=== PATIENT | female | born 1945 | race Caucasian/White ===

== ENCOUNTER 2017-08-11 21:30 | Inpatient (IN) | payer MEDICARE, SELFPAY ==
[2017-08-11 21:31] VITALS: BP 155/93; PULSE 87; RESP 20; TEMP 37.5; O2SAT 96; BMI 39.5
--- NOTE | 2017-08-11 21:44 | EKG12_ITS ---
Test Reason : FALL Blood Pressure : / mmHG Vent. Rate : 085 BPM Atrial Rate : 085 BPM P-R Int : 202 ms QRS Dur : 090 ms QT Int : 330 ms P-R-T Axes : 041 -39 067 degrees QTc Int : 392 ms Normal sinus rhythm Left axis deviation Anterior infarct , age undetermined Abnormal ECG Confirmed by TANYA OROZCO, CLEVE ([id number]), fashion editor SHONDA BROCK ([id number]) on 08/15/2017 2:51:48 PM Referred By: JERAD Confirmed By:CLEVE MARTÍNEZ MD
--- NOTE | 2017-08-11 21:44 | RAD_ITS ---
STUDY: X-RAY - PELVIS AND RIGHT HIP REASON FOR EXAM: Female, 71 years old. Fall, face down. TECHNIQUE: Radiological exam, hip, unilateral, with pelvis when performed; 2 or 3 views. COMPARISON: None. FINDINGS: There is a non-specific bowel gas pattern. Normal visualized soft tissue structures. Diffuse osteopenic changes are present. Normal bilateral iliac wings, sacroiliac joints and visualized sacrum. Normal bilateral superior and inferior pubic rami. There are degenerative changes of the pubic symphysis with articular narrowing and sclerosis. Normal bilateral ischial tuberosities. Normal visualized femoral head. Normal acetabulum. There is mild articular joint space narrowing of the hip. RAD/Hip 2-3 Views with Pelvis IMPRESSION: Degenerative changes and osteopenic changes with no evidence of acute fracture or dislocation. Electronically Signed: Hero Zuñiga DO at 22:31 EDT , Service support ,
--- NOTE | 2017-08-11 21:44 | CT_ITS ---
STUDY: CT BRAIN WITHOUT CONTRAST REASON FOR EXAM: Female, 71 years old. Fall, head pain. RADIATION DOSAGE (If Supplied By Facility): CTDIvol = ( 44.399 ) mGy, DLP = ( 779.24 ) mGycm TECHNIQUE: Transaxial CT imaging of the brain was performed without administration of intravenous contrast material. Individualized dose optimization techniques were used for this CT. COMPARISON: 23 May 2014 MRI brain FINDINGS: Normal soft tissue structures. Normal calvarium. There is moderate cerebral atrophy with widening of the extra-axial spaces and ventricular dilatation. There are areas of decreased attenuation within the white matter tracts of the supratentorial brain, consistent with microvascular disease changes. Left subinsular region of encephalomalacia is present. Normal brainstem. Normal cerebellum. There is no intracranial hemorrhage. There are no findings of an acute ischemic infarction. Normal visualized paranasal sinuses. CT/Brain/Head without Contrast IMPRESSION: Senescent changes with no evidence of acute intracranial bleed, mass or ischemia. Electronically Signed: Hero Zuñiga DO at 22:38 EDT , Service support ,
[2017-08-11 21:46] VITALS: O2SAT 94
--- NOTE | 2017-08-11 22:04 | RAD_ITS ---
STUDY: X-RAY CHEST REASON FOR EXAM: Female, 71 years old. Fall, found face down. TECHNIQUE: Single AP portable view of the chest. COMPARISON: 17 September 2015 FINDINGS: The lungs are clear and expanded. There is no demonstrated pleural abnormality. Normal size heart. Widened appearance of the mediastinum is noted similar to 2016 exam. Normal visualized pulmonary arteries. Normal visualized aortic arch and descending thoracic aorta. Normal visualized thoracic spine. There is degenerative osteoarthritis of the bilateral shoulders. There is no demonstrated abnormality of the visualized soft tissue structures of the upper abdomen. RAD/Chest 1 View (Portable) IMPRESSION: Overall similar appearance compared to the 2016 exam with no evidence of focal airspace disease. Electronically Signed: Hero Zuñiga DO at 22:29 EDT , Service support ,
[2017-08-11 22:09] LABS: Absolute Lymphocyte Count 0.32 X10^3/ul (0.83-4.51); Absolute Neutrophil Count 6.1 X10^3/uL (2.0-7.7); Basophil# 0.01 X10^3/uL; Basophil% 0.1 % (0-1); Differential Indicated SCAN CRITERIA MET; Hematocrit 41.8 % (37-47); Hemoglobin 13.6 g/dl (12.0-15.0); Lymphocyte # 0.32 X10^3/ul (4.0); Lymphocyte % 4.7 % (19-41); Mean Corp Hgb Conc 32.5 g/gl (32-36); Mean Corpuscular Volume 95.2 fL (81-99); Mean Platelet Vol. 9.5 fl (6.2-12.0); Monocyte# 0.44 X10^3/uL; Monocyte% 6.4 % (0-10); Neutrophil # 6.07 X10^3/uL (2.7-7.7); Neutrophil % 88.8 % (47-70); POSITIVE COUNT NO; POSITIVE DIFFERENTIAL YES; POSITIVE MORPHOLOGY NO; Platelet Count 162 K/mm3 (150-450); RBC Distribution Width CV 13.1 % (11.6-14.6); RBC Distribution Width SD 45.3 fl (35.1-43.9); Red Blood Count 4.39 M/mm3 (4.2-5.4); White Blood Count 6.8 K/mm3 (4.4-11.0)
[2017-08-11 22:13] LABS: International Normalized Ratio 1.1; Prothrombin Time (Protime)PT. 14.1 SECONDS (11.7-14.9)
[2017-08-11 22:19] LABS: ALB/GLOB Ratio 0.9 RATIO (0.9-2.4); AST(SGOT) 20 U/L (15-37); Alanine Aminotransfer ALT/SGPT 30 U/L (13-56); Albumin, Serum 3.4 g/dL (3.2-5.0); Alkaline Phosphatase 63 U/L (45-117); Anion Gap 8 (5-15); BUN 20 mg/dL (7-18); BUN/Creat Ratio 23.8 RATIO (10-20); Calcium,Total 8.4 mg/dL (8.5-10.1); Chloride 104 mmol/L (98-107); Creatinine, Serum 0.84 mg/dL (0.55-1.02); EST Glomerular Filtration Rate 71 mL/min (>60); Est Glom Filt Rate - Afr Amer 86 mL/min (>60); Estimated Creatinine Clearance 77.58 ml/min; Globulin 3.9 g/dL (2.2-4.2); Glucose 122 mg/dL (74-106); Potassium 3.5 mmol/L (3.5-5.1); Protein, Total 7.3 g/dL (6.4-8.2); Sodium Level 139 mmol/L (136-145)
[2017-08-11 22:35] LABS: Anisocytosis RARE; Macrocytosis RARE; Platelet Estimate ADEQUATE (ADEQ)
[2017-08-11] MEDS: Ondansetron 4 MG/2 ML Vial IV (22:35)
[2017-08-11] MEDS: fentaNYL 100 MCG/2 ML Ampul 50 MCG IV (22:35)
[2017-08-11 22:38] LABS: Bacteria 0 SEEN /hpf (None Seen); Red Blood Cells-Urine 0 SEEN /hpf (0-5); White Blood Cells 0 SEEN /hpf (0-5)
[2017-08-11 22:48] LABS: Color, Urine Yellow (Yellow); Glucose, Dipstick Normal (Normal); Ketone-Dipstick 5 mg/dl (Negative); Leukocyte Esterase-Dipstick Negative /ul (Negative); Nitrite-Dipstick Negative (Negative); Occult Blood-Urine 10 /ul (Negative); Protein-Dipstick 30 mg/dl (Negative); Urine Bilirubin Dipstick Negative (Negative); Urine Clarity Clear (Clear); Urine Urobilinogen Normal (Normal)
[2017-08-11 22:59] LABS: Hyaline Cast 0-5 SEEN /lpf (0-5); Mucous, Urine 1+ /hpf (<or=2+); Squamous Epithelial Cells - UA 0-5 SEEN /hpf (5-10)
--- NOTE | 2017-08-11 23:21 | ED.VISSUMM ---
- ER Visit Summary Date of Service: 08/11/17 Chief Complaint: Fall, hip pain History of Present Illness: The patient is a 71 F resents to the emergency department after a fall. Patient is very vague on the details. She has a history of sarcoidosis. She lives at home with her sister. She states she was trying to get out of her bed and cannot recall falling. She ended up on the ground and was unable to stand. She normally walks with a walker. She states that she thinks she slipped but cannot totally remember. The patient does admit to chills and sweats over the past 24 hours. She has had a scant nonproductive cough. She has felt increasing malaise and generalized weakness. She does not take anticoagulants. She denies any chest pain. She was mildly nauseated earlier today but that has since resolved. She does have history of prior stroke. Physical Examination: Vital signs reviewed General: Well-nourished, well-developed Head: Normocephalic, atraumatic Eyes: Pupils equal and reactive, extraocular muscles intact Neck, supple, no lymphadenopathy Heart: Regular rate and rhythm Respiratory: No distress, minutes in the bases Abdomen: Soft, nontender, nondistended, no peritoneal signs Back: Nontender Extremities: Right hip tender to palpation. Pain with logroll. Normal pulses. Skin: Normal color no rash Neuro: Alert and oriented to person and place, no focal or lateralizing deficits Test Results: [] Emergency Department Course and Treatment: It was hard to tell if the patient actually had a mechanical fall or if this was a syncopal event. Clinically, she does have infectious symptoms. She has had a scant cough with fever and chills. Labs were obtained. These are relatively unremarkable. Her EKG is sinus rhythm without acute ischemic change. Chest x-ray shows no pneumonia. Head CT is shows chronic change without evidence of acute bleeding. Pelvis x-ray and hip x-ray were unremarkable without evidence of fracture. Urine shows no infection. The patient was given fluids, analgesics, and reevaluated. She continues to have what appears to be a mild delirium. I do suspect there may be an infectious process. We did attempt to ambulate the patient, but she was very unsteady on her feet. At this time, I do not have a great feel for what caused her symptoms. I do suspect she may have an early pneumonia. With her weakness and inability to ambulate, I did discuss the patient with the hospitalist and she will be admitted. Treatment Plan: [] Disposition: Admission Impression: 1. Fall 2. Right hip pain with inability to ambulate 3. Delirium This note was generated with [employer] dictation software. It may contain incorrect words, spelling, and punctuation that were not noted in review of the chart prior to signing ED Disposition - Plan for ED Patient: Chief Complaint: Fall Referrals: Robyn Ramirez MD [Primary Care Provider] -
--- NOTE | 2017-08-11 23:48 | HP.PCM_ITS ---
Problem List (1) Fall with injury Status: Acute Qualifiers: Encounter type: initial encounter Qualified Code(s): W19.XXXA - Unspecified fall, initial encounter (2) Unable to walk Status: Acute (3) BMI 40.0-44.9, adult Status: Chronic (4) Gastroparesis Status: Chronic (5) Myelopathy Status: Chronic (6) Low back pain Status: Chronic (7) Myalgia and myositis Status: Chronic (8) Malaise and fatigue Status: Chronic (9) Aortic stenosis Status: Chronic (10) Hypertension Status: Chronic Qualifiers: (11) Sarcoidosis Status: Chronic (12) Confusion Status: Acute History of Present Illness Date of Admission: 08/11/17 Chief Complaint: fall with injury, unable to walk, confusion The patient is a 71 year old female patient who lives at home with her family presents to the ER after a fall. The patient is a poor historian due to confusion. It is reported that she has had a cough recently. She has a low grade fever. CT scan of the head is negative for acute findings, Chest x-ray is negative for acute findings. X-ray of the hip is negative for fracture. Despite this she is unable to bear weight at present time and she remains confused. She will be admitted for further management. Levaquin was started empirically. Past Medical History Past Medical History (Chronic Problems): Chronic Problems (Last Updated 07/02/17 @ 14:42 by Eulalia Torres) BMI 40.0-44.9, adult (Chronic) Gastroparesis (Chronic) Myelopathy (Chronic) Spinal cord lesion (Chronic) Low back pain (Chronic) Myalgia and myositis (Chronic) Malaise and fatigue (Chronic) Supraventricular tachycardia (Chronic) Palpitations (Chronic) Subsequent non-ST elevation (NSTEMI) myocardial infarction (Chronic) 02/16/15 Aortic stenosis (Chronic) Hypertension (Chronic) Sarcoidosis (Chronic) Obesity (BMI 30-39.9) (Chronic) Malabsorption (Chronic) Allergies lisinopril Allergy (Verified 08/11/17 21:35) Angioedema amlodipine [From Norvasc] Adverse Reaction (Severe, Verified 08/11/17 21:35) Freezes up limbs nifedipine [From Nifedical XL] Adverse Reaction (Severe, Verified 08/11/17 21:35 ) Freezes up limbs alendronate sodium [From Fosamax] Adverse Reaction (Intermediate, Verified 08/11 21:35) GI upset codeine Adverse Reaction (Verified 08/11/17 21:35) Unknown ibuprofen Adverse Reaction (Verified 08/11/17 21:35) Other HCTA Adverse Reaction (Intermediate, Uncoded 08/11/17 21:35) Low sodium LIPITOR Adverse Reaction (Uncoded 08/11/17 21:35) Unknown Home Medications: Ambulatory Orders Medication Instructions Recorded Cholecalciferol (VIT D3) [Vitamin 5,000 unit PO DAILY 05/22/14 D3] Vitamin B Complex 1 ea PO DAILY 05/22/14 Acetaminophen [Tylenol] 500 mg PO DAILY 07/15/16 Lactulose [Chronulac] 20 gm PO DAILY PRN 07/15/16 magnesium 250 mg tablet 750 mg PO QHS tab 06/16/17 metoprolol succinate ER 25 mg 25 mg PO BID 06/16/17 tablet,extended release 24 hr alfalfa 650 mg tablet 650 mg PO QDAY ea 07/02/17 folic acid-vit B6-vit B12 0.5 mg-5 1 tab PO QDAY 07/02/17 mg-0.2 mg tablet vitamin A palmitate 10,000 unit 10,000 unit PO QDAY ea 07/02/17 capsule Surgical History: total knee arthroplasty, tonsillectomy Psychiatric History: No pertinent psych hx INTERVIEWING CLERK History: No pertinent INTERVIEWING CLERK history Smoking Status: Never smoker - *Family History Paternal History Items: - - AAA Maternal History Items: Heart Disease Sibling History Items: Diabetes Review of Systems Constitutional: Reports: Fever, Malaise, Weakness, Fatigue. Denies: Chills, Weight Change HEENT: Denies: Head Aches, Sinus Congestion, Sinus Drainage Cardiovascular: Denies: Chest Pain, Palpitations Respiratory: Denies: Cough, Shortness of breath at rest, Sputum production Gastrointestinal: Denies: Abdominal Pain, Nausea, Vomiting Genitourinary: Denies: Dysuria Musculoskeletal: Denies: Joint Pain, Joint Tenderness Skin: Denies: Rash, Wounds Neurological: Denies: Numbness, Tingling, Focal weakness Psychiatric: Denies: Anxiety, Depression, Homicidal Ideations, Suicidal Ideations Hematologic/ Lymphatic: Denies: Easy Bruising, Easy Bleeding Unable to obtain accurate/complete ROS d/t: patient is confused- history per reports VTE Information - Inpt Only VTE Present on Admission: No VTE Mechan Device Prophylaxis: None VTE Pharm Prophylaxis ordered?: Yes Patient Problems: Active and Suspected Problems (Last Updated 07/02/17 @ 14:42 by Eulalia Torres) Fall with injury (Acute) Unable to walk (Acute) Confusion (Acute) - Physical Exam General: Alert, Confused HEENT: Atraumatic, PERRLA, EOMI, Normocephalic Neck: Supple Lungs: Clear to auscultation, Normal air movement, No rhonchi, No wheeze, No rales Cardiovascular: Regular rate, Normal S1, Normal S2, No murmurs, Murmur - 3/6 billy Abdomen: Bowel Sounds Present, Soft, Non Tender Extremities: No edema, Capillary Refill Less than 3 Seconds Skin: No rashes Musculoskeletal: No Tenderness to Palpation of Joints or Extremities Neurological: Neuro grossly intact Psych/Mental Status: Normal Affect, Appropriate Vital Signs Temp Pulse Resp BP Pulse Ox 99.5 F H 87 20 H 155/93 H 94 08/11/17 21:31 08/11/17 21:31 08/11/17 21:31 08/11/17 21:31 08/11/17 21:46 Oxygen Delivery Method Room Air Weight: 176 lb 5.917 oz Body Mass Index (BMI) 39.5 Finger Stick Blood Glucose 122 Laboratory Tests Past 24 Hrs 08/11/17 08/11/17 08/11/17 21:50 21:50 21:50 WBC 6.8 RBC 4.39 Hgb 13.6 Hct 41.8 MCV 95.2 MCH 31.0 MCHC 32.5 RDW 13.1 RDW Differential 45.3 H Plt Count 162 MPV 9.5 Immature Gran % (Auto) 0.000 Neut % (Auto) 88.8 H Lymph % (Auto) 4.7 L [place] % (Auto) 6.4 Eos % (Auto) 0.0 Baso % (Auto) 0.1 Absolute Neuts (auto) 6.1 Absolute Lymphs (auto) 0.32 L Total Counted Not Reportable Differential Comment SEE COMMENT Platelet Estimate ADEQUATE Anisocytosis RARE Macrocytosis RARE PT 14.1 INR 1.1 Sodium 139 Potassium 3.5 Chloride 104 Carbon Dioxide 27.0 Anion Gap 8 BUN 20 H Creatinine 0.84 Estim Creat Clear Calc 77.58 Est GFR (MDRD) Af Amer 86 Est GFR (MDRD) Non-Af 71 BUN/Creatinine Ratio 23.8 H Glucose 122 H Calcium 8.4 L Total Bilirubin 0.60 AST 20 ALT 30 Alkaline Phosphatase 63 Total Protein 7.3 Albumin 3.4 Globulin 3.9 Albumin/Globulin Ratio 0.9 Urine Color Urine Clarity Urine pH Ur Specific [place] Urine Protein Urine Glucose (UA) Urine Ketones Urine Occult Blood Urine Nitrite Urine Bilirubin Urine Urobilinogen Ur Leukocyte Esterase Urine RBC Urine WBC Ur Squamous Epith Cells Urine Bacteria Hyaline Casts Urine Mucus 08/11/17 22:35 WBC RBC Hgb Hct MCV MCH MCHC RDW RDW Differential Plt Count MPV Immature Gran % (Auto) Neut % (Auto) Lymph % (Auto) [place] % (Auto) Eos % (Auto) Baso % (Auto) Absolute Neuts (auto) Absolute Lymphs (auto) Total Counted Differential Comment Platelet Estimate Anisocytosis Macrocytosis PT INR Sodium Potassium Chloride Carbon Dioxide Anion Gap BUN Creatinine Estim Creat Clear Calc Est GFR (MDRD) Af Amer Est GFR (MDRD) Non-Af BUN/Creatinine Ratio Glucose Calcium Total Bilirubin AST ALT Alkaline Phosphatase Total Protein Albumin Globulin Albumin/Globulin Ratio Urine Color Yellow Urine Clarity Clear Urine pH 6.0 Ur Specific [place] 1.020 Urine Protein 30 H Urine Glucose (UA) Normal Urine Ketones 5 H Urine Occult Blood 10 H Urine Nitrite Negative Urine Bilirubin Negative Urine Urobilinogen Normal Ur Leukocyte Esterase Negative Urine RBC 0 SEEN Urine WBC 0 SEEN Ur Squamous Epith Cells 0-5 SEEN Urine Bacteria 0 SEEN Hyaline Casts 0-5 SEEN Urine Mucus 1+ Assessment/Plan Active and Suspected Problems (Last Updated 07/02/17 @ 14:42 by Eulalia Torres) Fall with injury (Acute) Unable to walk (Acute) Confusion (Acute) Chronic Problems (Last Updated 07/02/17 @ 14:42 by Eulalia Torres) BMI 40.0-44.9, adult (Chronic) Gastroparesis (Chronic) Myelopathy (Chronic) Spinal cord lesion (Chronic) Low back pain (Chronic) Myalgia and myositis (Chronic) Malaise and fatigue (Chronic) Supraventricular tachycardia (Chronic) Palpitations (Chronic) Subsequent non-ST elevation (NSTEMI) myocardial infarction (Chronic) 02/16/15 Aortic stenosis (Chronic) Hypertension (Chronic) Sarcoidosis (Chronic) Obesity (BMI 30-39.9) (Chronic) Malabsorption (Chronic) Plan - admit to medical surgical floor. - continue levaquin - physical therapy to evaluate and treat - IV normal saline at 125cc/hour - cbc, bmp in am - continue routine home medications - LMWH for DVT prophylaxis Code Visit Inpatient E&M: 94857 Init Hosp L3
[2017-08-12] VITALS (19 sets, daily range): BP systolic 91–168; BP diastolic 66–92; PULSE 61–159; RESP 18–21; TEMP 36.4–38.3; O2SAT 92–99; BMI 38.8
[2017-08-12] MEDS: levoFLOXacin IV 500 MG/100 ML BAG 100 MG IV (01:04)
[2017-08-12] MEDS: 0.9% Normal Saline 1,000 ML 125 ML IV ×2 (01:47→12:17)
[2017-08-12] MEDS: Acetaminophen 500 MG Tablet PO (06:09)
[2017-08-12 06:15] LABS: Absolute Lymphocyte Count 0.53 X10^3/ul (0.83-4.51); Absolute Neutrophil Count 4.6 X10^3/uL (2.0-7.7); Hematocrit 36.9 % (37-47); Hemoglobin 12.3 g/dl (12.0-15.0); Lymphocyte # 0.53 X10^3/ul (4.0); Lymphocyte % 9.7 % (19-41); Mean Corp Hgb Conc 33.3 g/gl (32-36); Mean Corpuscular Hgb 31.9 pg (27.0-32.0); Mean Corpuscular Volume 95.6 fL (81-99); Mean Platelet Vol. 9.9 fl (6.2-12.0); Monocyte% 7.3 % (0-10); Neutrophil # 4.55 X10^3/uL (2.7-7.7); Neutrophil % 82.8 % (47-70); Platelet Count 166 K/mm3 (150-450); RBC Distribution Width CV 13.3 % (11.6-14.6); RBC Distribution Width SD 46.3 fl (35.1-43.9); Red Blood Count 3.86 M/mm3 (4.2-5.4); White Blood Count 5.5 K/mm3 (4.4-11.0)
[2017-08-12 06:24] LABS: Differential Indicated SCAN CRITERIA MET; POSITIVE COUNT NO; POSITIVE DIFFERENTIAL YES; POSITIVE MORPHOLOGY NO
[2017-08-12 06:25] LABS: Anion Gap 7 (5-15); BUN 18 mg/dL (7-18); BUN/Creat Ratio 29.1 RATIO (10-20); Calcium,Total 7.7 mg/dL (8.5-10.1); Chloride 108 mmol/L (98-107); Creatinine, Serum 0.62 mg/dL (0.55-1.02); EST Glomerular Filtration Rate 101 mL/min (>60); Est Glom Filt Rate - Afr Amer 122 mL/min (>60); Estimated Creatinine Clearance 64.03 ml/min; Glucose 102 mg/dL (74-106); Potassium 3.5 mmol/L (3.5-5.1); Sodium Level 140 mmol/L (136-145)
[2017-08-12] MEDS: Metoprolol(XL)Succ 25 MG Tablet PO ×2 (06:30→12:54)
--- NOTE | 2017-08-12 06:40 | NURSING ---
this RN checked pt's VS and noted a HR of 150s. Call was placed to MD. EKG performed showed SVT. MD ordered for beta di to be given early. Pt told this RN that she did not take her meds yesterday. Pt was short of breath when transferring to the toilet and complained of a headache. tylenol 500mg was given. Pt did not urinate; bladder scan showed 275.
[2017-08-12 06:42] LABS: Differential Comment SCANNED
[2017-08-12 07:06] LABS: Magnesium 1.7 mg/dL (1.6-2.6)
--- NOTE | 2017-08-12 08:19 | NURSING ---
pt was SVT- PO metoprolol given this AM by casino shift manager. At 0802 this AM SVT converted to SR. Pt has been asymptomatic throughout rhythm changes.
[2017-08-12] MEDS: Vitamin B Comp W-C Capsule 1 CAP PO (08:42)
--- NOTE | 2017-08-12 09:17 | NURSING ---
Patients family member David called in this AM and requested for pt to call her- this RN assisted pt at this time with calling her at this time- per pt request.
[2017-08-12] MEDS: Enoxaparin 40 MG/0.4 ML Syringe SC (09:57)
--- NOTE | 2017-08-12 12:42 | CASEMGMT ---
See RN CM Assessment. DC PLAN: undetermined -PT/OT is recommending SNF. SADIQ Antonio updated. Reba HUAN RN ACM
[2017-08-12] MEDS: Ondansetron 4 MG/2 ML Vial IV ×2 (12:58→18:49)
--- NOTE | 2017-08-12 13:00 | RAD_ITS ---
STUDY: X-RAY CHEST REASON FOR EXAM: Female, 71 years old. Cough. TECHNIQUE: AP and lateral views of the chest. COMPARISON: Comparison is made with prior study dated August 11, 2017. FINDINGS: EKG electrodes are seen. The lungs are clear and expanded. Stable blunting of the left costophrenic angle. Mild cardiomegaly. Stable widening of the superior mediastinum is likely due to ectasia of the major vessels. Normal visualized pulmonary arteries. There is atherosclerotic tortuosity of the aortic arch and descending thoracic aorta. Normal visualized thoracic spine. There is degenerative osteoarthritis of the bilateral shoulders. There is no demonstrated abnormality of the visualized soft tissue structures of the upper abdomen. RAD/Chest PA and Lateral IMPRESSION: Stable examination. Electronically Signed: Bebo Oseguera MD at 12:37 EDT Tel [phone], Service support ,
--- NOTE | 2017-08-12 16:14 | PCM.PROGNOTE ---
Patient Problems: Active and Suspected Problems (Last Updated 07/02/17 @ 14:42 by Eulalia Torres) Fall with injury (Acute) Unable to walk (Acute) Confusion (Acute) Subjective: Patient was seen and examined today, I stopped her antibiotics this morning because I do not feel the patient has a focus of infection. Patient was walked with physical therapy today but was a maximal assist, she has agreed to go to a skilled care facility for temporary rehab. Patient has been multiple questions about her bowel movements, she states that her bowel movements are like pellets and that she sees green liquid in her bowel movements. I asked her if she had any actual abdominal pain and she denied this. She stated that her bowel movements have been pellet-like for the last 2-3 months. Patient has an anxiety overlay according to her PCP, her PCP also told me today that she has been having trouble walking at home for quite a long time and that she does not get up and walk very much at home. Had some diarrhea today, her chest x-ray this afternoon did not show an active infiltrate. In addition, patient had some episodes of SVT today on the monitor, pulse rates were around 150-160, I talked to her silk conditioner about this and her silk conditioner has confirmed that in the past she has had episodic SVT and recommended that her metoprolol dosage be increased. - Physical Exam General: Alert, Oriented x3, Cooperative, No apparent distress, Well developed, Well nourished HEENT: Atraumatic, PERRLA, EOMI, Normocephalic Oral: Moist Mucosa Neck: Supple, No JVD, No Nuchal Rigidity, Trachea Midline, Thyroid Normal Size and Texture Lungs: Clear to auscultation, Normal air movement, No rhonchi, No wheeze, No rales Cardiovascular: Regular rate, Regular Rhythm, Normal S1, Normal S2, No murmurs, No Ectopic Activity, PMI Normal, No rub noted, No Gallop Abdomen: Bowel Sounds Present, Soft, Non Tender, Non-Distended, No hernias noted Extremities: No clubbing, No cyanosis, No edema, Capillary Refill Less than 3 Seconds Skin: No rashes, No breakdown Musculoskeletal: No Tenderness to Palpation of Joints or Extremities Neurological: Cranial nerves II-XII grossly intact, Neuro grossly intact, Sensory exam intact to light touch and pain, Coordination normal Psych/Mental Status: Appropriate, Anxious, Flat Affect, Alert and oriented to time, place, person, mood and affect Vital Signs Temp Pulse Resp BP Pulse Ox 97.5 F L 68 18 131/83 H 95 08/12/17 12:47 08/12/17 14:00 08/12/17 12:47 08/12/17 12:54 08/12/17 12:47 Oxygen Flow Rate (L/min) 2 Oxygen Delivery Method Room Air Weight: 78.6 kg Body Mass Index (BMI) 38.8 Intake and Output for Last 24 Hours 08/10/17 08/11/17 08/12/17 23:59 23:59 23:59 Intake Total 1677 / 1677 Output Total 300 / 300 Balance 1377 / 1377 Laboratory Tests Past 24 Hrs 08/12/17 08/12/17 08/12/17 05:15 05:15 05:15 WBC 5.5 RBC 3.86 L Hgb 12.3 Hct 36.9 L MCV 95.6 MCH 31.9 MCHC 33.3 RDW 13.3 RDW Differential 46.3 H Plt Count 166 MPV 9.9 Immature Gran % (Auto) 0.200 Neut % (Auto) 82.8 H Lymph % (Auto) 9.7 L [place] % (Auto) 7.3 Eos % (Auto) 0.0 Baso % (Auto) 0.0 Absolute Neuts (auto) 4.6 Absolute Lymphs (auto) 0.53 L Total Counted Not Reportable Differential Comment SCANNED Sodium 140 Potassium 3.5 Chloride 108 H Carbon Dioxide 25.0 Anion Gap 7 BUN 18 Creatinine 0.62 Estim Creat Clear Calc 64.03 Est GFR (MDRD) Af Amer 122 Est GFR (MDRD) Non-Af 101 BUN/Creatinine Ratio 29.1 H Glucose 102 Calcium 7.7 L Magnesium 1.7 Medical Necessity - Tobacco Use Smoking Status: Never smoker Assessment/Plan Active and Suspected Problems (Last Updated 07/02/17 @ 14:42 by Eulalia Torres) Fall with injury (Acute) Unable to walk (Acute) Confusion (Acute) #1 generalized debility secondary to deconditioning, osteoarthritis, and myelopathy-patient will need continued PT and OT, we will go ahead with temporary placement in a [facility] facility #2 SVT-patient's metoprolol will be increased and she will be monitored on telemetry #3 anxiety disorder #4 diarrhea-unsure of the etiology of this, will observe #5 osteoarthritis #6 aortic stenosis #7 Cephalopathy on admission-patient does not appear to be confused at the time of my examination, however, she is not very cognizant of her surroundings when she walks. #8 sarcoidosis #9 history of myelopathy-etiology unknown Code Visit Inpatient E&M: 67281 Subs Hosp L2
--- NOTE | 2017-08-12 16:53 | CASEMGMT ---
Social Work Note RN LUCIANA Arango informed this worker that PT/OT are recommending SNF placement at discharge and that pt had mentioned TCU. SW met with pt to discuss discharge plans. Pt confirms that she would like TCU. SW placed a call to Cony in TCU to inform her of referral. Talisha ESTES will continue to follow along for discharge planning. Plan: TCU pending acceptance Marisela Duque BLACK JACK DEALER, PREPRESS TECHNICIAN
--- NOTE | 2017-08-12 18:29 | NURSING ---
PT C/O NAUSEA, ABD CRAMPING. HAD HAD 2 EPISODES OF DIARRHEA THIS AFTERNOON. DR Saini NOTIFIED & NEW ORDERS RECEIVED.
[2017-08-12] MEDS: Magnesium Oxide 400 MG Tablet 800 MG PO (21:16)
[2017-08-12] MEDS: Metoprolol(XL)Succ 50 MG Tablet PO (21:16)
[2017-08-12] MEDS: 0.9% Normal Saline 1,000 ML 100 ML IV (21:21)
[2017-08-13] VITALS (11 sets, daily range): BP systolic 124–175; BP diastolic 70–90; PULSE 58–71; RESP 16–20; TEMP 36.8–37.3; O2SAT 92–96
[2017-08-13] MEDS: 0.9% Normal Saline 1,000 ML 100 ML IV ×2 (07:41→17:21)
[2017-08-13] MEDS: Vitamin B Comp W-C Capsule 1 CAP PO (07:41)
[2017-08-13] MEDS: Enoxaparin 40 MG/0.4 ML Syringe SC (09:48)
[2017-08-13] MEDS: Metoprolol(XL)Succ 50 MG Tablet PO ×2 (09:49→20:49)
[2017-08-13] MEDS: Acetaminophen 500 MG Tablet PO (09:50)
--- NOTE | 2017-08-13 09:51 | CASEMGMT ---
Addendum entered by Talisha Bourgeois 08/13/17 13:39: SW spoke w/pt in room, let her know that we are still waiting for precert from insurance to authorize pt to go to TCU. SW explained that pt's [employer] has to authorize in order for her to be covered to TCU. Pt states understanding, SW explained as soon as this SW hears from insurance will let her know. Pt states understanding. SW will continue to follow. FRANKLYN Graham, WATCH CRYSTAL MOLDER Original Note: Addendum entered by Talisha Bourgeois 08/13/17 11:22: SW spoke w/Dr. Moreau, pt is ready any time for discharge. SW let Erendira in TCU know, she will start precert. FRANKLYN Graham, WATCH CRYSTAL MOLDER Original Note: Erendira from TCU inquired when pt will be ready for discharge, and Erendira will start precert. SW will let Erendira know once SW speaks w/the physician. FRANKLYN Graham, WATCH CRYSTAL MOLDER
--- NOTE | 2017-08-13 16:57 | PCM.PROGNOTE ---
Patient Problems: Active and Suspected Problems (Last Updated 07/02/17 @ 14:42 by Eulalia Torres) Fall with injury (Acute) Unable to walk (Acute) Confusion (Acute) Subjective: Patient was seen and examined today, she still complains of having some abdominal cramping. I have the patient currently on a full liquid diet. We are awaiting approval for the patient to go to jail facility for rehab - Physical Exam General: Alert, Oriented x3, Cooperative, No apparent distress, Well developed, Well nourished HEENT: Atraumatic, PERRLA, EOMI, Normocephalic Oral: Moist Mucosa Neck: Supple, No JVD, No Nuchal Rigidity, Trachea Midline, Thyroid Normal Size and Texture Lungs: Clear to auscultation, Normal air movement, No rhonchi, No wheeze, No rales Cardiovascular: Regular rate, Regular Rhythm, Normal S1, Normal S2, No murmurs, No Ectopic Activity, PMI Normal, No rub noted, No Gallop Abdomen: Bowel Sounds Present, Soft, Non Tender, Non-Distended, No hernias noted Extremities: No clubbing, No cyanosis, No edema, Capillary Refill Less than 3 Seconds Skin: No rashes, No breakdown Musculoskeletal: No Tenderness to Palpation of Joints or Extremities Neurological: Cranial nerves II-XII grossly intact, Neuro grossly intact, Sensory exam intact to light touch and pain Psych/Mental Status: Normal Affect, Appropriate, Alert and oriented to time, place, person, mood and affect Vital Signs Temp Pulse Resp BP Pulse Ox 98.2 F 58 L 16 124/70 H 96 08/13/17 13:48 08/13/17 13:48 08/13/17 13:48 08/13/17 13:48 08/13/17 13:48 Oxygen Flow Rate (L/min) 2 Oxygen Delivery Method Room Air Weight: 78.6 kg Body Mass Index (BMI) 38.8 Intake and Output for Last 24 Hours 08/11/17 08/12/17 08/13/17 23:59 23:59 23:59 Intake Total 2609 / 2609 1525 / 1525 Output Total 300 / 300 Balance 2309 / 2309 1525 / 1525 Medical Necessity - Tobacco Use Smoking Status: Never smoker Assessment/Plan Active and Suspected Problems (Last Updated 07/02/17 @ 14:42 by Eulalia Keller Fall with injury (Acute) Unable to walk (Acute) Confusion (Acute) #1 generalized debility secondary to deconditioning, osteoarthritis, and myelopathy-patient will need continued PT and OT, we are currently awaiting approval for the patient to go to a jail facility #2 SVT-patient's metoprolol was increased yesterday #3 anxiety disorder #4 diarrhea/abdominal cramping-unsure of the etiology of this, will observe #5 osteoarthritis #6 aortic stenosis #7 Confusion on admission-patient does not appear to be confused at the time of my examination, however, she is not very cognizant of her surroundings when she walks. #8 sarcoidosis #9 history of myelopathy-etiology unknown Code Visit Inpatient E&M: 19342 Subs Hosp L2
--- NOTE | 2017-08-13 17:00 | PN_ITS ---
Patient Problems: Active and Suspected Problems (Last Updated 07/02/17 @ 14:42 by Eulalia Torres) Fall with injury (Acute) Unable to walk (Acute) Confusion (Acute) Subjective: Patient was seen and examined today, she still complains of having some abdominal cramping. I have the patient currently on a full liquid diet. We are awaiting approval for the patient to go to senior care facility for rehab - Physical Exam General: Alert, Oriented x3, Cooperative, No apparent distress, Well developed, Well nourished HEENT: Atraumatic, PERRLA, EOMI, Normocephalic Oral: Moist Mucosa Neck: Supple, No JVD, No Nuchal Rigidity, Trachea Midline, Thyroid Normal Size and Texture Lungs: Clear to auscultation, Normal air movement, No rhonchi, No wheeze, No rales Cardiovascular: Regular rate, Regular Rhythm, Normal S1, Normal S2, No murmurs, No Ectopic Activity, PMI Normal, No rub noted, No Gallop Abdomen: Bowel Sounds Present, Soft, Non Tender, Non-Distended, No hernias noted Extremities: No clubbing, No cyanosis, No edema, Capillary Refill Less than 3 Seconds Skin: No rashes, No breakdown Musculoskeletal: No Tenderness to Palpation of Joints or Extremities Neurological: Cranial nerves II-XII grossly intact, Neuro grossly intact, Sensory exam intact to light touch and pain Psych/Mental Status: Normal Affect, Appropriate, Alert and oriented to time, place, person, mood and affect Vital Signs Temp Pulse Resp BP Pulse Ox 98.2 F 58 L 16 124/70 H 96 08/13/17 13:48 08/13/17 13:48 08/13/17 13:48 08/13/17 13:48 08/13/17 13:48 Oxygen Flow Rate (L/min) 2 Oxygen Delivery Method Room Air Weight: 78.6 kg Body Mass Index (BMI) 38.8 Intake and Output for Last 24 Hours 08/11/17 08/12/17 08/13/17 23:59 23:59 23:59 Intake Total 2609 / 2609 1525 / 1525 Output Total 300 / 300 Balance 2309 / 2309 1525 / 1525 Medical Necessity - Tobacco Use Smoking Status: Never smoker Assessment/Plan Active and Suspected Problems (Last Updated 07/02/17 @ 14:42 by Eulalia Keller Fall with injury (Acute) Unable to walk (Acute) Confusion (Acute) #1 generalized debility secondary to deconditioning, osteoarthritis, and myelopathy-patient will need continued PT and OT, we are currently awaiting approval for the patient to go to a senior care facility #2 SVT-patient's metoprolol was increased yesterday #3 anxiety disorder #4 diarrhea/abdominal cramping-unsure of the etiology of this, will observe #5 osteoarthritis #6 aortic stenosis #7 Confusion on admission-patient does not appear to be confused at the time of my examination, however, she is not very cognizant of her surroundings when she walks. #8 sarcoidosis #9 history of myelopathy-etiology unknown Code Visit Inpatient E&M: 07374 Subs Hosp L2
[2017-08-13] MEDS: Magnesium Oxide 400 MG Tablet 800 MG PO (20:49)
[2017-08-14] VITALS (10 sets, daily range): BP systolic 154–171; BP diastolic 77–88; PULSE 53–65; RESP 16–18; TEMP 36.7–37.3; O2SAT 94–99
[2017-08-14] MEDS: Vitamin B Comp W-C Capsule 1 CAP PO (09:11)
[2017-08-14] MEDS: Enoxaparin 40 MG/0.4 ML Syringe SC (09:11)
[2017-08-14] MEDS: Metoprolol(XL)Succ 50 MG Tablet PO ×2 (09:11→21:23)
[2017-08-14] MEDS: Acetaminophen 500 MG Tablet PO (09:12)
--- NOTE | 2017-08-14 09:54 | PCM.PROGNOTE ---
Patient Problems: Active and Suspected Problems (Last Updated 07/02/17 @ 14:42 by Eulalia Torres) Fall with injury (Acute) Unable to walk (Acute) Confusion (Acute) Subjective: Patient seen and examined today, she voices no specific complaints, we are currently awaiting approval for placement in group home facility. - Physical Exam General: Alert, Oriented x3, Cooperative, No apparent distress, Well developed, Well nourished HEENT: Atraumatic, PERRLA, EOMI, Normocephalic Oral: Moist Mucosa Neck: Supple, No JVD, Trachea Midline, Thyroid Normal Size and Texture Lungs: Clear to auscultation, Normal air movement, No rhonchi, No wheeze, No rales Cardiovascular: Regular rate, Regular Rhythm, Normal S1, Normal S2, No murmurs, No Ectopic Activity Abdomen: Bowel Sounds Present, Soft, Non Tender, Non-Distended, No hernias noted Extremities: No clubbing, No cyanosis, No edema, Capillary Refill Less than 3 Seconds Skin: No rashes, No breakdown Neurological: Cranial nerves II-XII grossly intact, Neuro grossly intact Psych/Mental Status: Normal Affect, Appropriate, Alert and oriented to time, place, person, mood and affect Vital Signs Temp Pulse Resp BP Pulse Ox 98.9 F 58 L 16 171/88 H 96 08/14/17 08:23 08/14/17 09:11 08/14/17 08:23 08/14/17 08:23 08/14/17 08:23 Oxygen Flow Rate (L/min) 2 Oxygen Delivery Method Room Air Weight: 78.6 kg Body Mass Index (BMI) 38.8 Intake and Output for Last 24 Hours 08/12/17 08/13/17 08/14/17 23:59 23:59 23:59 Intake Total 2609 / 2609 1525 / 1525 320 / 320 Output Total 300 / 300 Balance 2309 / 2309 1525 / 1525 320 / 320 Medical Necessity - Tobacco Use Smoking Status: Never smoker Assessment/Plan Active and Suspected Problems (Last Updated 07/02/17 @ 14:42 by Eulalia Torres) Fall with injury (Acute) Unable to walk (Acute) Confusion (Acute) #1 generalized debility secondary to deconditioning, osteoarthritis, and myelopathy-patient will need continued PT and OT, we are currently awaiting approval for the patient to go to a group home facility #2 SVT-he remains in sinus rhythm at this time, rate is well controlled on metoprolol #3 anxiety disorder #4 diarrhea/abdominal cramping-unsure of the etiology of this, she has no complaints today about abdominal discomfort #5 osteoarthritis #6 aortic stenosis #7 Confusion on admission-etiology unclear, patient does not appear to be confused today #8 sarcoidosis #9 history of myelopathy-etiology unknown Code Visit Inpatient E&M: 87376 Subs Hosp L2
--- NOTE | 2017-08-14 12:08 | CASEMGMT ---
Addendum entered by Talisha Bourgeois 08/14/17 15:22: SW spoke w/Cony again in TCU, she called [employer] and left a message, she is still waiting for precert. She states she will call the floor if we get precert still today, as this SW will be leaving soon for the day. SW spoke w/pt in room, as pt had told the EMPLOYEE'S REPRESENTATIVE that [employer] left her a message at home saying pt was approved for TCU. SW explained to pt that [employer] would not call her at home to say she is approved for TCU, and perhaps the message was saying pt was approved for the hospital stay. Pt states she thought it was strange that they would call her at home. SW explained will let her know as soon as we hear anything in regard to the precert, and if we do not hear today by 5pm will speak w/pt in the morning. Pt states understanding. SW will continue to follow. FRANKLYN Graham, DIRECTOR NURSERY SCHOOL Original Note: SW spoke w/Cony in TCU, she has not heard anything yet from insurance. Pt did walk 130 feet and 150 feet w/therapy, so this SW is concerned that pt could be denied by [employer](even though pt had to take breaks and needed verbal cues, etc). SW reviewed other options w/pt in the event she is denied, including home w/home health care, SNF private pay, or SNF and apply for Medicaid to cover the cost. Pt is not certain what she would want to do. SW explained that as soon as SW hears regarding precert will let her know. SW will continue to follow. FRANKLYN Graham, DIRECTOR NURSERY SCHOOL
[2017-08-14] MEDS: Magnesium Oxide 400 MG Tablet 800 MG PO (21:24)
[2017-08-15] VITALS (10 sets, daily range): BP systolic 127–197; BP diastolic 73–98; PULSE 58–65; RESP 16–18; TEMP 36.8–37.5; O2SAT 92–96
[2017-08-15] MEDS: Vitamin B Comp W-C Capsule 1 CAP PO (09:06)
[2017-08-15] MEDS: Acetaminophen 500 MG Tablet PO (09:06)
[2017-08-15] MEDS: Metoprolol(XL)Succ 50 MG Tablet PO ×2 (09:06→20:13)
[2017-08-15] MEDS: Enoxaparin 40 MG/0.4 ML Syringe SC (09:06)
--- NOTE | 2017-08-15 10:07 | CASEMGMT ---
Addendum entered by Talisha Bourgeois 08/15/17 13:57: [employer] still has not given an answer in regard to precert. SW spoke w/pt about what she would like to do if insurance denies, she states she thinks she would like to go home w/home health. SW explained that Marisela, another SW will be taking over and will let her know when we hear something from [facility]. Pt inquired if she would stay all weekend if we do not hear anything today, SW explained that if we do not hear today, she may end up staying until Friday. Pt states understanding. SW left a message for Cony in TCU to call Marisela Francis if she gets precert, and Marisela will follow up w/pt. SW will continue to follow. FRANKLYN Graham, FRUIT AND VEGETABLE PARER Original Note: Addendum entered by Talisha Bourgeois 08/15/17 13:08: SW spoke w/Litzy in regard to this pt at [facility]. Pt would not be appropriate for their AL at this time, as per Litzy, as they feel she is a fall risk and there is not a bed in AL close to the nurse's station. They would potentially have a private pay bed in the [facility], cost is $235-$245 per day. [facility] will let Litzy know if pt would like to consider going there private pay, still waiting for the final determination from [facility] for TCU. SW will continue to follow. FRANKLYN Graham, FRUIT AND VEGETABLE PARER Original Note: SW spoke w/Cony this morning in regard to pt's precert. She states that she has not heard back, and that the case likely went to medical review. SW spoke w/pt in the room in regard to discharge plan. SW explained that we have not heard back from [facility], and SW is concerned that pt may be denied by insurance. SW asked pt what she may want to do, go home w/home health, or go to SNF private pay if she can afford this. Pt inquired how much it would be to go to SNF private pay, SW reviewed cost w/pt. Pt asked specifically about W, SW explained the cost, and can also check on their AL, as they have some transitional beds there that may be an option for her. Pt asked about cost of home health, SW explained this would be covered by her insurance. Pt tearful, explained it took her a long time to be okay w/going to TCU, and never thought that her insurance would deny. SW explained that as of now we do not know for certain, and SW will let her know as soon as we hear for certain from TCU about precert. SW offered support to pt. Pt states she lives w/her sister, and may prefer to go home w/home health. SW explained what is covered by insurance for home health (PT/OT/nursing/aide), and that the visits are 30 to 60 minutes. SW explained she can also supplement and hire extra help from the home health agency if she would like to do that. SW explained as soon as SW hears, will let her know. SW did also call [facility], they can take pt. SW called [facility] and left a message inquiring about bed availability in their AL. FRANKLYN Graham, FRUIT AND VEGETABLE PARER
--- NOTE | 2017-08-15 14:26 | CASEMGMT ---
Social Work Note [facility] received call from Cony in TCU. Cony states that yesterday she called [employer] and spoke with customer service about pt's case. Cony states that she got the number for medical review and called and left them a message. Cony states that at this time she still hasn't heard back from [employer] so she placed another call to them. [employer] is now stating that the case was never loaded and they have no case for pt. Cony states that [employer] had uploaded the case on Friday or Friday. Cony states that she has reloaded the case and faxed updated clinicals again. Cony states that it is unlikely that she will hear from [employer] today but if she does she will let this worker know, the floor know, or [facility] [place] tomorrow. [facility] will continue to follow along to assist with discharge planning. Plan: TCU pending pre-cert Marisela Duque ELEMENTARY SCHOOL MUSIC TEACHER, HIM ASSISTANT
--- NOTE | 2017-08-15 15:05 | CASEMGMT ---
Social Work Note Charge Nurse David asked this worker to speak to pt regarding situation with insurance. David states that if pt wants to go home and not see what [employer] says about TCU then they will discharge her home today. SW in to speak with pt and udpated her on insurance situation. SW explained to pt that [employer] is stating the case wasn't loaded and that they had to resubmit the case and that the pre-cert process has began from the start again. SW informed pt that if she wants to go home with home health care and doesn't want to wait for [employer] then she can go home this evening with [facility]. Pt states that she would like to stay to see what [employer] says. SW informed pt that it is unlikely that this worker will hear from Cony in TCU regarding insurance as it is already 3:00 on a Friday and that pt will be here throughout the weekend then. Pt states that she is ok with that and she wants to stay to hear from [employer]. Pt updated Charge Nurse David of this. SW will continue to follow along with pt for discharge planning. Plan: TCU pending pre-cert Marisela Duque SOC ANALYST, BUS PERSON
--- NOTE | 2017-08-15 16:50 | PCM.PROGNOTE ---
Patient Problems: Active and Suspected Problems (Last Updated 07/02/17 @ 14:42 by Eulalia Torres) Fall with injury (Acute) Unable to walk (Acute) Confusion (Acute) Subjective: Patient was seen and examined today, we received word from her insurance carrier today that she was not in their system for approval to go to a shelter facility and they have no data on her and no physical therapy notes. I do not understand why her insurance carrier has no record of us contacting them regarding approval for shelter stay. Patient will now have to stay in the hospital until we receive word from her insurance carrier which will probably early next week. Patient does not feel that she is able to go home - Physical Exam General: Alert, Oriented x3, Cooperative, No apparent distress, Well developed, Well nourished HEENT: Atraumatic, PERRLA, EOMI, Normocephalic Oral: Moist Mucosa Neck: Supple, No JVD, Trachea Midline, Thyroid Normal Size and Texture Lungs: Clear to auscultation, Normal air movement, No rhonchi, No wheeze, No rales Cardiovascular: Regular rate, Regular Rhythm, Normal S1, Normal S2, No murmurs, No Ectopic Activity, PMI Normal, No rub noted, No Gallop Abdomen: Bowel Sounds Present, Soft, Non Tender, Non-Distended, No hernias noted Extremities: No clubbing, No cyanosis, No edema, Capillary Refill Less than 3 Seconds Skin: No rashes, No breakdown Neurological: Cranial nerves II-XII grossly intact, Neuro grossly intact, Sensory exam intact to light touch and pain Psych/Mental Status: Normal Affect, Appropriate, Alert and oriented to time, place, person, mood and affect Vital Signs Temp Pulse Resp BP Pulse Ox 99.1 F 62 18 157/73 H 93 08/15/17 14:22 08/15/17 14:22 08/15/17 14:22 08/15/17 14:22 08/15/17 14:22 Oxygen Flow Rate (L/min) 2 Oxygen Delivery Method Room Air Weight: 78.6 kg Body Mass Index (BMI) 38.8 Intake and Output for Last 24 Hours 08/13/17 08/14/17 08/15/17 23:59 23:59 23:59 Intake Total 1525 / 1525 320 / 320 400 / 400 Balance 1525 / 1525 320 / 320 400 / 400 Medical Necessity - Tobacco Use Smoking Status: Never smoker Assessment/Plan Active and Suspected Problems (Last Updated 07/02/17 @ 14:42 by Eulalia Torres) Fall with injury (Acute) Unable to walk (Acute) Confusion (Acute) #1 generalized debility secondary to deconditioning, osteoarthritis, and myelopathy-patient will need continued PT and OT, we are currently awaiting approval for the patient to go to a shelter facility, again we found out today that her insurance carrier has no record of us calling for approval on the patient, this process will have to start over on Friday #2 SVT-he remains in sinus rhythm at this time, rate is well controlled on metoprolol #3 anxiety disorder #4 diarrhea/abdominal cramping-unsure of the etiology of this, she has no complaints today about abdominal discomfort #5 osteoarthritis #6 aortic stenosis #7 Confusion on admission-etiology unclear, patient does not appear to be confused today #8 sarcoidosis #9 history of myelopathy-etiology unknown Code Visit Inpatient E&M: 41367 Subs Hosp L2
--- NOTE | 2017-08-15 16:53 | PN_ITS ---
Patient Problems: Active and Suspected Problems (Last Updated 07/02/17 @ 14:42 by Eulalia Torres) Fall with injury (Acute) Unable to walk (Acute) Confusion (Acute) Subjective: Patient was seen and examined today, we received word from her insurance carrier today that she was not in their system for approval to go to a prison facility and they have no data on her and no physical therapy notes. I do not understand why her insurance carrier has no record of us contacting them regarding approval for prison stay. Patient will now have to stay in the hospital until we receive word from her insurance carrier which will probably early next week. Patient does not feel that she is able to go home - Physical Exam General: Alert, Oriented x3, Cooperative, No apparent distress, Well developed, Well nourished HEENT: Atraumatic, PERRLA, EOMI, Normocephalic Oral: Moist Mucosa Neck: Supple, No JVD, Trachea Midline, Thyroid Normal Size and Texture Lungs: Clear to auscultation, Normal air movement, No rhonchi, No wheeze, No rales Cardiovascular: Regular rate, Regular Rhythm, Normal S1, Normal S2, No murmurs, No Ectopic Activity, PMI Normal, No rub noted, No Gallop Abdomen: Bowel Sounds Present, Soft, Non Tender, Non-Distended, No hernias noted Extremities: No clubbing, No cyanosis, No edema, Capillary Refill Less than 3 Seconds Skin: No rashes, No breakdown Neurological: Cranial nerves II-XII grossly intact, Neuro grossly intact, Sensory exam intact to light touch and pain Psych/Mental Status: Normal Affect, Appropriate, Alert and oriented to time, place, person, mood and affect Vital Signs Temp Pulse Resp BP Pulse Ox 99.1 F 62 18 157/73 H 93 08/15/17 14:22 08/15/17 14:22 08/15/17 14:22 08/15/17 14:22 08/15/17 14:22 Oxygen Flow Rate (L/min) 2 Oxygen Delivery Method Room Air Weight: 78.6 kg Body Mass Index (BMI) 38.8 Intake and Output for Last 24 Hours 08/13/17 08/14/17 08/15/17 23:59 23:59 23:59 Intake Total 1525 / 1525 320 / 320 400 / 400 Balance 1525 / 1525 320 / 320 400 / 400 Medical Necessity - Tobacco Use Smoking Status: Never smoker Assessment/Plan Active and Suspected Problems (Last Updated 07/02/17 @ 14:42 by Eulalia Torres) Fall with injury (Acute) Unable to walk (Acute) Confusion (Acute) #1 generalized debility secondary to deconditioning, osteoarthritis, and myelopathy-patient will need continued PT and OT, we are currently awaiting approval for the patient to go to a prison facility, again we found out today that her insurance carrier has no record of us calling for approval on the patient, this process will have to start over on Friday #2 SVT-he remains in sinus rhythm at this time, rate is well controlled on metoprolol #3 anxiety disorder #4 diarrhea/abdominal cramping-unsure of the etiology of this, she has no complaints today about abdominal discomfort #5 osteoarthritis #6 aortic stenosis #7 Confusion on admission-etiology unclear, patient does not appear to be confused today #8 sarcoidosis #9 history of myelopathy-etiology unknown Code Visit Inpatient E&M: [id number] Subs Hosp L2
[2017-08-15] MEDS: Magnesium Oxide 400 MG Tablet 800 MG PO (20:13)
[2017-08-15] MEDS: Acetaminophen 325 MG Tablet 650 MG PO (21:59)
[2017-08-15] MEDS: hydrALAZINE 20 MG/ML Vial 5 MG IV (22:10)
[2017-08-16] VITALS (7 sets, daily range): BP systolic 155–182; BP diastolic 78–90; PULSE 58–66; RESP 18–20; TEMP 36.6–37.1; O2SAT 97
[2017-08-16] MEDS: Magnesium Oxide 400 MG Tablet 800 MG PO (12:07)
[2017-08-16] MEDS: Enoxaparin 40 MG/0.4 ML Syringe SC (12:10)
[2017-08-16] MEDS: Vitamin B Comp W-C Capsule 1 CAP PO (12:10)
[2017-08-16] MEDS: Acetaminophen 500 MG Tablet PO (12:11)
[2017-08-16] MEDS: Metoprolol(XL)Succ 50 MG Tablet PO ×2 (12:11→20:43)
--- NOTE | 2017-08-16 14:00 | PCM.PROGNOTE ---
Patient Problems: Active and Suspected Problems (Last Updated 07/02/17 @ 14:42 by Eulalia Torres) Fall with injury (Acute) Unable to walk (Acute) Confusion (Acute) Subjective: Patient was seen and examined today, she voices no specific complaints, we are currently awaiting approval for her to go to a senior living facility for rehab. - Physical Exam General: Alert, Oriented x3, Cooperative, No apparent distress, Well developed HEENT: Atraumatic, PERRLA, EOMI, Normocephalic Oral: Moist Mucosa Neck: Supple, No JVD, Negative Carotid Bruits, No Nuchal Rigidity, Trachea Midline, Thyroid Normal Size and Texture Lungs: Clear to auscultation, Normal air movement, No rhonchi, No wheeze, No rales Cardiovascular: Regular rate, Regular Rhythm, Normal S1, Normal S2, No murmurs, No Ectopic Activity, PMI Normal, No rub noted, No Gallop Abdomen: Bowel Sounds Present, Soft, Non Tender, Non-Distended, No hernias noted Extremities: Capillary Refill Less than 3 Seconds Skin: No rashes, No breakdown Musculoskeletal: No Tenderness to Palpation of Joints or Extremities Neurological: Cranial nerves II-XII grossly intact, Neuro grossly intact, Sensory exam intact to light touch and pain Psych/Mental Status: Normal Affect, Appropriate, Alert and oriented to time, place, person, mood and affect Vital Signs Temp Pulse Resp BP Pulse Ox 98.7 F 66 20 H 180/89 H 97 08/16/17 12:19 08/16/17 12:19 08/16/17 12:19 08/16/17 12:19 08/16/17 12:19 Oxygen Flow Rate (L/min) 2 Oxygen Delivery Method Room Air Weight: 78.6 kg Body Mass Index (BMI) 38.8 Intake and Output for Last 24 Hours 08/14/17 08/15/17 08/16/17 23:59 23:59 23:59 Intake Total 320 / 320 660 / 660 Balance 320 / 320 660 / 660 Medical Necessity - Tobacco Use Smoking Status: Never smoker Assessment/Plan Active and Suspected Problems (Last Updated 07/02/17 @ 14:42 by Eulalia Torres) Fall with injury (Acute) Unable to walk (Acute) Confusion (Acute) #1 generalized debility secondary to deconditioning, osteoarthritis, and myelopathy-patient will need continued PT and OT, we are currently awaiting approval for the patient to go to a senior living facility, again we found out today that her insurance carrier has no record of us calling for approval on the patient yesterday, this process will have to start over on Friday, she most likely will not go to a [facility] until Friday or Friday of next week #2 SVT-he remains in sinus rhythm at this time, rate is well controlled on metoprolol #3 anxiety disorder #4 diarrhea/abdominal cramping-resolved #5 osteoarthritis #6 aortic stenosis #7 sarcoidosis #8 history of myelopathy-etiology unknown Code Visit Inpatient E&M: 39394 Subs Hosp L2
--- NOTE | 2017-08-16 14:16 | PN_ITS ---
Patient Problems: Active and Suspected Problems (Last Updated 07/02/17 @ 14:42 by Eulalia Torres) Fall with injury (Acute) Unable to walk (Acute) Confusion (Acute) Subjective: Patient was seen and examined today, she voices no specific complaints, we are currently awaiting approval for her to go to a group home facility for rehab. - Physical Exam General: Alert, Oriented x3, Cooperative, No apparent distress, Well developed HEENT: Atraumatic, PERRLA, EOMI, Normocephalic Oral: Moist Mucosa Neck: Supple, No JVD, Negative Carotid Bruits, No Nuchal Rigidity, Trachea Midline, Thyroid Normal Size and Texture Lungs: Clear to auscultation, Normal air movement, No rhonchi, No wheeze, No rales Cardiovascular: Regular rate, Regular Rhythm, Normal S1, Normal S2, No murmurs, No Ectopic Activity, PMI Normal, No rub noted, No Gallop Abdomen: Bowel Sounds Present, Soft, Non Tender, Non-Distended, No hernias noted Extremities: Capillary Refill Less than 3 Seconds Skin: No rashes, No breakdown Musculoskeletal: No Tenderness to Palpation of Joints or Extremities Neurological: Cranial nerves II-XII grossly intact, Neuro grossly intact, Sensory exam intact to light touch and pain Psych/Mental Status: Normal Affect, Appropriate, Alert and oriented to time, place, person, mood and affect Vital Signs Temp Pulse Resp BP Pulse Ox 98.7 F 66 20 H 180/89 H 97 08/16/17 12:19 08/16/17 12:19 08/16/17 12:19 08/16/17 12:19 08/16/17 12:19 Oxygen Flow Rate (L/min) 2 Oxygen Delivery Method Room Air Weight: 78.6 kg Body Mass Index (BMI) 38.8 Intake and Output for Last 24 Hours 08/14/17 08/15/17 08/16/17 23:59 23:59 23:59 Intake Total 320 / 320 660 / 660 Balance 320 / 320 660 / 660 Medical Necessity - Tobacco Use Smoking Status: Never smoker Assessment/Plan Active and Suspected Problems (Last Updated 07/02/17 @ 14:42 by Eulalia Torres) Fall with injury (Acute) Unable to walk (Acute) Confusion (Acute) #1 generalized debility secondary to deconditioning, osteoarthritis, and myelopathy-patient will need continued PT and OT, we are currently awaiting approval for the patient to go to a group home facility, again we found out today that her insurance carrier has no record of us calling for approval on the patient yesterday, this process will have to start over on Friday, she most likely will not go to a long term until Friday or Friday of next week #2 SVT-he remains in sinus rhythm at this time, rate is well controlled on metoprolol #3 anxiety disorder #4 diarrhea/abdominal cramping-resolved #5 osteoarthritis #6 aortic stenosis #7 sarcoidosis #8 history of myelopathy-etiology unknown Code Visit Inpatient E&M: 42647 Subs Hosp L2
[2017-08-17 02:38] VITALS: BP 168/89; PULSE 69; RESP 18; TEMP 37.2; O2SAT 95
[2017-08-17 10:30] VITALS: BP 139/84; PULSE 72; RESP 18; TEMP 36.8; O2SAT 97
[2017-08-17] MEDS: Enoxaparin 40 MG/0.4 ML Syringe SC (10:37)
[2017-08-17 10:38] VITALS: BP 139/84; PULSE 72
[2017-08-17] MEDS: Metoprolol(XL)Succ 50 MG Tablet PO ×2 (10:38→21:09)
[2017-08-17] MEDS: Vitamin B Comp W-C Capsule 1 CAP PO (10:38)
[2017-08-17] MEDS: Acetaminophen 325 MG Tablet 650 MG PO ×2 (10:44→17:29)
[2017-08-17 10:47] VITALS: BP 158/92; PULSE 112
--- NOTE | 2017-08-17 16:26 | PCM.PROGNOTE ---
Patient Problems: Active and Suspected Problems (Last Updated 07/02/17 @ 14:42 by Eulalia Torres) Fall with injury (Acute) Unable to walk (Acute) Confusion (Acute) Subjective: Patient was seen and examined today, she voices no specific complaints, again we are currently awaiting approval for her to go to an extended care facility for rehab. - Physical Exam General: Alert, Oriented x3, Cooperative, No apparent distress HEENT: Atraumatic, PERRLA, EOMI, Normocephalic Oral: Moist Mucosa Neck: Supple, No JVD, No Nuchal Rigidity, Trachea Midline, Thyroid Normal Size and Texture Lungs: Clear to auscultation, Normal air movement, No rhonchi, No wheeze, No rales Cardiovascular: Regular rate, Regular Rhythm, Normal S1, Normal S2, No murmurs, No Ectopic Activity, PMI Normal, No rub noted, No Gallop Abdomen: Bowel Sounds Present, Soft, Non Tender, Non-Distended, No hernias noted Extremities: No clubbing, No cyanosis, No edema, Capillary Refill Less than 3 Seconds Skin: No rashes, No breakdown Musculoskeletal: No Tenderness to Palpation of Joints or Extremities Neurological: Cranial nerves II-XII grossly intact, Neuro grossly intact, Sensory exam intact to light touch and pain, Coordination normal Psych/Mental Status: Normal Affect, Appropriate, Alert and oriented to time, place, person, mood and affect Vital Signs Temp Pulse Resp BP Pulse Ox 98.2 F 112 H 18 158/92 H 97 08/17/17 10:30 08/17/17 10:47 08/17/17 10:30 08/17/17 10:47 08/17/17 10:30 Oxygen Flow Rate (L/min) 2 Oxygen Delivery Method Room Air Weight: 78.6 kg Body Mass Index (BMI) 38.8 Intake and Output for Last 24 Hours 08/15/17 08/16/17 08/17/17 23:59 23:59 23:59 Intake Total 660 / 660 720 / 720 500 / 500 Balance 660 / 660 720 / 720 500 / 500 Medical Necessity - Tobacco Use Smoking Status: Never smoker Assessment/Plan Active and Suspected Problems (Last Updated 07/02/17 @ 14:42 by Eulalia Torres) Fall with injury (Acute) Unable to walk (Acute) Confusion (Acute) #1 generalized debility secondary to deconditioning, osteoarthritis, and myelopathy-patient will need continued PT and OT, we are currently awaiting approval for the patient to go to a intermediate facility, again we found out today that her insurance carrier has no record of us calling for approval on the patient yesterday, this process will have to start over on Friday, she most likely will not go to a penitentiary until Friday or Friday of next week #2 SVT-he remains in sinus rhythm at this time, rate is well controlled on metoprolol #3 anxiety disorder #4 diarrhea/abdominal cramping-resolved #5 osteoarthritis #6 aortic stenosis #7 sarcoidosis #8 history of myelopathy-etiology unknown Code Visit Inpatient E&M: 76282 Subs Hosp L2
--- NOTE | 2017-08-17 16:38 | PN_ITS ---
Patient Problems: Active and Suspected Problems (Last Updated 07/02/17 @ 14:42 by Eulalia Torres) Fall with injury (Acute) Unable to walk (Acute) Confusion (Acute) Subjective: Patient was seen and examined today, she voices no specific complaints, again we are currently awaiting approval for her to go to an extended care facility for rehab. - Physical Exam General: Alert, Oriented x3, Cooperative, No apparent distress HEENT: Atraumatic, PERRLA, EOMI, Normocephalic Oral: Moist Mucosa Neck: Supple, No JVD, No Nuchal Rigidity, Trachea Midline, Thyroid Normal Size and Texture Lungs: Clear to auscultation, Normal air movement, No rhonchi, No wheeze, No rales Cardiovascular: Regular rate, Regular Rhythm, Normal S1, Normal S2, No murmurs, No Ectopic Activity, PMI Normal, No rub noted, No Gallop Abdomen: Bowel Sounds Present, Soft, Non Tender, Non-Distended, No hernias noted Extremities: No clubbing, No cyanosis, No edema, Capillary Refill Less than 3 Seconds Skin: No rashes, No breakdown Musculoskeletal: No Tenderness to Palpation of Joints or Extremities Neurological: Cranial nerves II-XII grossly intact, Neuro grossly intact, Sensory exam intact to light touch and pain, Coordination normal Psych/Mental Status: Normal Affect, Appropriate, Alert and oriented to time, place, person, mood and affect Vital Signs Temp Pulse Resp BP Pulse Ox 98.2 F 112 H 18 158/92 H 97 08/17/17 10:30 08/17/17 10:47 08/17/17 10:30 08/17/17 10:47 08/17/17 10:30 Oxygen Flow Rate (L/min) 2 Oxygen Delivery Method Room Air Weight: 78.6 kg Body Mass Index (BMI) 38.8 Intake and Output for Last 24 Hours 08/15/17 08/16/17 08/17/17 23:59 23:59 23:59 Intake Total 660 / 660 720 / 720 500 / 500 Balance 660 / 660 720 / 720 500 / 500 Medical Necessity - Tobacco Use Smoking Status: Never smoker Assessment/Plan Active and Suspected Problems (Last Updated 07/02/17 @ 14:42 by Eulalia Torres) Fall with injury (Acute) Unable to walk (Acute) Confusion (Acute) #1 generalized debility secondary to deconditioning, osteoarthritis, and myelopathy-patient will need continued PT and OT, we are currently awaiting approval for the patient to go to a longterm facility, again we found out today that her insurance carrier has no record of us calling for approval on the patient yesterday, this process will have to start over on Friday, she most likely will not go to a intermediate until Friday or Friday of next week #2 SVT-he remains in sinus rhythm at this time, rate is well controlled on metoprolol #3 anxiety disorder #4 diarrhea/abdominal cramping-resolved #5 osteoarthritis #6 aortic stenosis #7 sarcoidosis #8 history of myelopathy-etiology unknown Code Visit Inpatient E&M: 31243 Subs Hosp L2
[2017-08-17 19:37] VITALS: BP 153/88; PULSE 65; RESP 18; TEMP 36.9; O2SAT 97
[2017-08-17] MEDS: Magnesium Oxide 400 MG Tablet 800 MG PO (21:08)
[2017-08-17 21:09] VITALS: PULSE 70
[2017-08-18 01:37] VITALS: BP 163/89; PULSE 66; RESP 18; TEMP 36.8; O2SAT 98
[2017-08-18 08:32] VITALS: BP 174/87; PULSE 60; RESP 18; TEMP 36.8; O2SAT 93
[2017-08-18] MEDS: Vitamin B Comp W-C Capsule 1 CAP PO (08:32)
[2017-08-18 09:20] VITALS: PULSE 72
[2017-08-18 09:27] VITALS: PULSE 72
[2017-08-18] MEDS: Metoprolol(XL)Succ 50 MG Tablet PO (09:27)
[2017-08-18] MEDS: Acetaminophen 325 MG Tablet 650 MG PO (09:27)
[2017-08-18] MEDS: Enoxaparin 40 MG/0.4 ML Syringe SC (09:28)
--- NOTE | 2017-08-18 13:43 | CASEMGMT ---
Social Work Note [facility] received call from [facility] in TCU stating that pre-cert was obtained. [facility] informed Cony that pt is ready for discharge and will be discharging today. SADIQ updated Dr. Moreau of this. Talisha ESTES updated pt of this. Plan: TCU today Marisela Duque ENDOCRINOLOGY NURSE, MAJOR GIFTS OFFICER
--- NOTE | 2017-08-18 13:54 | CASEMGMT ---
Pt was approved for TCU, [facility] Antonio let the physician know. SW did let pt know she was approved by insurance to go to TCU today, pt agreeable. FRANKLYN Graham, PIPE LINE GAUGER
[2017-08-18 15:04] VITALS: BP 137/75; PULSE 62; RESP 18; TEMP 37; O2SAT 96
--- NOTE | 2017-08-18 15:36 | PCM.TXEXTCAR ---
- Diet 08/14/17 09:01 Diet: Regular Diet Is pt able to select menu?: Yes - Therapies Weight Bearing: Full weight bearing Physical Therapy: Eval and Treat Occupational Therapy: Eval and Treat - Problem/Diagnosis (1) Low back pain Status: Chronic Current Visit: No (2) Supraventricular tachycardia Status: Chronic Current Visit: No (3) Debility Status: Acute Current Visit: Yes (4) Anxiety Status: Chronic Current Visit: Yes (5) Osteoarthritis Status: Chronic Current Visit: Yes (6) Myelopathy Status: Chronic Current Visit: No - Allergies/Procedures Done in Hospital Allergies/Adverse Reactions: Allergies lisinopril Allergy (Verified 08/11/17 21:35) Angioedema amlodipine [From Norvasc] Adverse Reaction (Severe, Verified 08/11/17 21:35) Freezes up limbs nifedipine [From Nifedical XL] Adverse Reaction (Severe, Verified 08/11/17 21:35) Freezes up limbs alendronate sodium [From Fosamax] Adverse Reaction (Intermediate, Verified 08/11/17 21:35) GI upset codeine Adverse Reaction (Verified 08/11/17 21:35) Unknown ibuprofen Adverse Reaction (Verified 08/11/17 21:35) Other HCTA Adverse Reaction (Intermediate, Uncoded 08/11/17 21:35) Low sodium LIPITOR Adverse Reaction (Uncoded 08/11/17 21:35) Unknown Procedures: None - Type of Care/Length of Stay Estimated LOS: Convalescent Care Less Than 30 days Type of Care Needed: Skilled Rehab Potential: Good Prognosis: Good - Additional Orders/Day of Discharge H&P will serve as current which was dated: 08/11/17 Day of Discharge: 08/18/17 - Follow Up Care Primary Care Physician: Robyn Ramirez MD [Primary Care Provider] -
--- NOTE | 2017-08-18 15:41 | TREXTCAR_ITS ---
- Diet 08/14/17 09:01 Diet: Regular Diet Is pt able to select menu?: Yes - Therapies Weight Bearing: Full weight bearing Physical Therapy: Eval and Treat Occupational Therapy: Eval and Treat - Problem/Diagnosis (1) Low back pain Status: Chronic Current Visit: No (2) Supraventricular tachycardia Status: Chronic Current Visit: No (3) Debility Status: Acute Current Visit: Yes (4) Anxiety Status: Chronic Current Visit: Yes (5) Osteoarthritis Status: Chronic Current Visit: Yes (6) Myelopathy Status: Chronic Current Visit: No - Allergies/Procedures Done in Hospital Allergies/Adverse Reactions: Allergies lisinopril Allergy (Verified 08/11/17 21:35) Angioedema amlodipine [From Norvasc] Adverse Reaction (Severe, Verified 08/11/17 21:35) Freezes up limbs nifedipine [From Nifedical XL] Adverse Reaction (Severe, Verified 08/11/17 21:35 ) Freezes up limbs alendronate sodium [From Fosamax] Adverse Reaction (Intermediate, Verified 08/11 21:35) GI upset codeine Adverse Reaction (Verified 08/11/17 21:35) Unknown ibuprofen Adverse Reaction (Verified 08/11/17 21:35) Other HCTA Adverse Reaction (Intermediate, Uncoded 08/11/17 21:35) Low sodium LIPITOR Adverse Reaction (Uncoded 08/11/17 21:35) Unknown Procedures: None - Type of Care/Length of Stay Estimated LOS: Convalescent Care Less Than 30 days Type of Care Needed: Skilled Rehab Potential: Good Prognosis: Good - Additional Orders/Day of Discharge H&P will serve as current which was dated: 08/11/17 Day of Discharge: 08/18/17 - Follow Up Care Primary Care Physician: Robyn Ramirez MD [Primary Care Provider] -
--- NOTE | 2017-08-19 19:40 | PCM.DC.SUM ---
Discharge Date and Diagnosis - Problem List Patient Problems: Active and Suspected Problems (Last Updated 07/02/17 @ 14:42 by Eulalia Torres) Encephalopathy (Acute) Date of Admission: 08/11/17 Date of Discharge: 08/18/17 - Primary Discharge Diagnosis Active and Suspected Problems #1 generalized debility secondary to deconditioning, osteoarthritis, and myelopathy #2 supraventricular tachycardia-paroxysmal #3 anxiety disorder #4 osteoarthritis #5 aortic stenosis #6 brief episodic confusion-etiology unclear #7 sarcoidosis #8 myelopathy-type unknown - Secondary Discharge Diagnosis Chronic Problems (Last Updated 07/02/17 @ 14:42 by Eulalia Torres) Anxiety (Chronic) Osteoarthritis (Chronic) Stroke (Chronic) Constipation (Chronic) BMI 40.0-44.9, adult (Chronic) Gastroparesis (Chronic) Myelopathy (Chronic) Spinal cord lesion (Chronic) Low back pain (Chronic) Myalgia and myositis (Chronic) Malaise and fatigue (Chronic) Supraventricular tachycardia (Chronic) Palpitations (Chronic) Subsequent non-ST elevation (NSTEMI) myocardial infarction (Chronic) 02/16/15 Aortic stenosis (Chronic) Hypertension (Chronic) Sarcoidosis (Chronic) Obesity (BMI 30-39.9) (Chronic) Malabsorption (Chronic) Hospital Course and Treatment Operations: None Procedures: None Summary of Care Provided: The patient is a 71 year old F seen in the emergency room at [facility] after sustaining a fall at home. She was brought in due to generalized weakness and mild confusion. Patient was a very poor informant, she lives at home with her sister. Workup in the emergency room included imaging studies including a CT scan of the head which is negative for acute findings, chest x-ray which was negative for acute findings, x-ray of the hip which was negative for fracture. Patient's labs were remarkable for a slightly elevated BUN at 20. Patient was unable to bear weight in the emergency room and remained mildly confused, patient was admitted to [facility] 3 and briefly was placed on Levaquin for suspected infection, on my evaluation of the patient the next day, I stopped her Levaquin because I did not think she had an active infection. Patient was monitored on telemetry and had brief episodes of SVT which was self-sustaining. Patient's confusion cleared but she remained weak and it was recommended that she transferred to a [facility] facility for rehab. Even though a request was put into the patient's insurance carrier, after 3 days the insurance carrier stated that they had not heard from the hospital and was not aware that the patient was hospitalized. Patient did not feel she was able to manage with ADLs at home and she was kept in the hospital and a repeat request was made to her insurance carrier for placement in a chcf facility. On 08/18/17, patient was seen and examined and felt to be in stable condition for transfer to chcf facility after this was approved by her insurance carrier. Home Medications: Medications to take at Discharge Cholecalciferol (VIT D3) [Vitamin D3] 5,000 unit PO DAILY 05/22/14 Vitamin B Complex 1 ea PO DAILY 05/22/14 Lactulose [Chronulac] 20 gm PO DAILY PRN 07/15/16 magnesium 250 mg tablet 750 mg PO QHS tab 06/16/17 folic acid-vit B6-vit B12 0.5 mg-5 mg-0.2 mg tablet 1 tab PO QDAY 07/02/17 vitamin A palmitate 10,000 unit capsule 10,000 unit PO QDAY ea 07/02/17 Acetaminophen [Tylenol Tablet] 650 mg PO Q4H PRN PRN tablet 08/18/17 Metoprolol(XL)Succ [Toprol Xl (Beta Berenice)] 50 mg PO BID 08/18/17 Primary Care Physician: Robyn Ramirez MD [Primary Care Provider] - Disposition: Snf facility Minutes spent on discharge:: 32 Patient Condition:: Stable Medical Necessity - Tobacco Use Smoking Status: Never smoker Meaningful Use Info Meaningful Use Diagnoses (Choose all that apply): None applicable Code Visit Inpatient E&M: 47431 Disch Hosp
--- NOTE | 2017-08-19 19:46 | DS.PCM_ITS ---
Discharge Date and Diagnosis - Problem List Patient Problems: Active and Suspected Problems (Last Updated 07/02/17 @ 14:42 by Eulalia Torres) Encephalopathy (Acute) Date of Admission: 08/11/17 Date of Discharge: 08/18/17 - Primary Discharge Diagnosis Active and Suspected Problems #1 generalized debility secondary to deconditioning, osteoarthritis, and myelopathy #2 supraventricular tachycardia-paroxysmal #3 anxiety disorder #4 osteoarthritis #5 aortic stenosis #6 brief episodic confusion-etiology unclear #7 sarcoidosis #8 myelopathy-type unknown - Secondary Discharge Diagnosis Chronic Problems (Last Updated 07/02/17 @ 14:42 by Eulalia Torres) Anxiety (Chronic) Osteoarthritis (Chronic) Stroke (Chronic) Constipation (Chronic) BMI 40.0-44.9, adult (Chronic) Gastroparesis (Chronic) Myelopathy (Chronic) Spinal cord lesion (Chronic) Low back pain (Chronic) Myalgia and myositis (Chronic) Malaise and fatigue (Chronic) Supraventricular tachycardia (Chronic) Palpitations (Chronic) Subsequent non-ST elevation (NSTEMI) myocardial infarction (Chronic) 02/16/15 Aortic stenosis (Chronic) Hypertension (Chronic) Sarcoidosis (Chronic) Obesity (BMI 30-39.9) (Chronic) Malabsorption (Chronic) Hospital Course and Treatment Operations: None Procedures: None Summary of Care Provided: The patient is a 71 year old F seen in the emergency room at [facility] after sustaining a fall at home. She was brought in due to generalized weakness and mild confusion. Patient was a very poor informant, she lives at home with her sister. Workup in the emergency room included imaging studies including a CT scan of the head which is negative for acute findings, chest x-ray which was negative for acute findings, x-ray of the hip which was negative for fracture. Patient's labs were remarkable for a slightly elevated BUN at 20. Patient was unable to bear weight in the emergency room and remained mildly confused, patient was admitted to [facility] 3 and briefly was placed on Levaquin for suspected infection, on my evaluation of the patient the next day, I stopped her Levaquin because I did not think she had an active infection. Patient was monitored on telemetry and had brief episodes of SVT which was self-sustaining. Patient's confusion cleared but she remained weak and it was recommended that she transferred to a nursing home facility for rehab. Even though a request was put into the patient's insurance carrier, after 3 days the insurance carrier stated that they had not heard from the hospital and was not aware that the patient was hospitalized. Patient did not feel she was able to manage with ADLs at home and she was kept in the hospital and a repeat request was made to her insurance carrier for placement in a nursing home facility. On 08/18/17, patient was seen and examined and felt to be in stable condition for transfer to nursing home facility after this was approved by her insurance carrier. Home Medications: Medications to take at Discharge Cholecalciferol (VIT D3) [Vitamin D3] 5,000 unit PO DAILY 05/22/14 Vitamin B Complex 1 ea PO DAILY 05/22/14 Lactulose [Chronulac] 20 gm PO DAILY PRN 07/15/16 magnesium 250 mg tablet 750 mg PO QHS tab 06/16/17 folic acid-vit B6-vit B12 0.5 mg-5 mg-0.2 mg tablet 1 tab PO QDAY 07/02/17 vitamin A palmitate 10,000 unit capsule 10,000 unit PO QDAY ea 07/02/17 Acetaminophen [Tylenol Tablet] 650 mg PO Q4H PRN PRN tablet 08/18/17 Metoprolol(XL)Succ [Toprol Xl (Beta Berenice)] 50 mg PO BID 08/18/17 Primary Care Physician: Robyn Ramirez MD [Primary Care Provider] - [facility] Minutes spent on discharge:: 32 Patient Condition:: Stable Medical Necessity - Tobacco Use Smoking Status: Never smoker Meaningful Use Info Meaningful Use Diagnoses (Choose all that apply): None applicable Code Visit Inpatient E&M: 19159 Disch Hosp
== END 2017-08-18 16:01 | disposition skilled nursing facility (03) | DRG 91 ==
LOC: ED 21:56 → MS2 08-12 00:44 → MS3 08-15 15:16
PROVIDERS: Admitting Provider Family Medicine; Emergency Provider Emergency Medicine; Family Provider Internal Medicine; PCP Internal Medicine; Visit Provider Internal Medicine
DX: G95.9 Disease of spinal cord, unspecified (principal); G93.40 Encephalopathy, unspecified; I47.1 Supraventricular tachycardia; K90.9 Intestinal malabsorption, unspecified; D86.9 Sarcoidosis, unspecified; R26.2 Difficulty in walking, not elsewhere classified; R19.7 Diarrhea, unspecified; I10 Essential (primary) hypertension; I35.0 Nonrheumatic aortic (valve) stenosis; M60.9 Myositis, unspecified; M19.90 Unspecified osteoarthritis, unspecified site; M54.5 Low back pain; G89.29 Other chronic pain; F41.9 Anxiety disorder, unspecified; E66.9 Obesity, unspecified; Z68.38 Body mass index [BMI] 38.0-38.9, adult; I25.2 Old myocardial infarction; Z86.73 Personal history of transient ischemic attack (TIA), and cerebral infarction without residual deficits
CPT/HCPCS: 36415; 70450; 71045; 71046; 73502; 80048; 80053; 81001; 83735; 85025; 85610; 93005; 97110; 97116; 97162; 97165; 97530; 97535; 97802; 99285; J7030; J7040; J7050; A4216; J2405

== ENCOUNTER 2017-08-18 16:10 | Inpatient (IN) | payer MEDICARE, SELFPAY ==
[2017-08-18 16:21] VITALS: BP 154/77; PULSE 55; RESP 16; TEMP 36.1; O2SAT 96; BMI 35.5
--- NOTE | 2017-08-18 16:34 | NURSING ---
Pt arrived from [facility] via bed at 16:10
[2017-08-18 18:15] VITALS: PULSE 60
[2017-08-18] MEDS: Metoprolol(XL)Succ 50 MG Tablet PO (18:15)
[2017-08-18 18:17] VITALS: BMI 35.5
--- NOTE | 2017-08-18 20:28 | PCM.HP.STD ---
Problem List (1) Encephalopathy Status: Acute (2) Stroke Status: Chronic (3) Constipation Status: Chronic (4) Fall with injury Status: Acute Qualifiers: (5) Gastroparesis Status: Chronic (6) Myelopathy Status: Chronic (7) Low back pain Status: Chronic (8) Aortic stenosis Status: Chronic (9) Hypertension Status: Chronic Qualifiers: (10) Sarcoidosis Status: Chronic History of Present Illness Date of Admission: 08/18/17 Chief Complaint: Here for rehabilitation, strengthening, prior to discharge home with sister. The patient is a 71 year old Female with below past medical history presented to [facility] Emergency Department 08/11/2017 with fall, hip pain. 08/11/2017 CT brain chronic involutional changes of brain. 08/11/2017 EKG normal sinus rhythm, left axis deviation, anterior infarct, age undetermined. 08/11/2017 X-ray pelvis, right hip, showed arthritis, negative for fracture. 08/11/2017 Chest X-ray negative. Unable to stand, usually walks with walker. Chills, sweats x 24 hours, dry cough. Malaise, generalized weakness. Labs okay, UA negative. IV fluids, continued mild delirium. Unable to ambulate, Levaquin given. 08/11/2017 Admit to Hospital. Continue Levaquin. IV Fluids. 08/12/2017 Chest X-ray negative. Antibiotics stopped. Encephalopathy persists. 08/13/2017 PT/OT recommends SNF. Awaiting insurance approval for SNF. 08/18/2017 Admit to TCU for rehabilitation, strengthening, prior to discharge home with sister. Encephalopathy cleared at time of my interview. Past Medical History Past Medical History (Chronic Problems): Chronic Problems (Last Updated 07/02/17 @ 14:42 by Eulalia Torres) Anxiety (Chronic) Osteoarthritis (Chronic) Stroke (Chronic) Constipation (Chronic) BMI 40.0-44.9, adult (Chronic) Gastroparesis (Chronic) Myelopathy (Chronic) Spinal cord lesion (Chronic) Low back pain (Chronic) Myalgia and myositis (Chronic) Malaise and fatigue (Chronic) Supraventricular tachycardia (Chronic) Palpitations (Chronic) Subsequent non-ST elevation (NSTEMI) myocardial infarction (Chronic) 02/16/15 Aortic stenosis (Chronic) Hypertension (Chronic) Sarcoidosis (Chronic) Obesity (BMI 30-39.9) (Chronic) Malabsorption (Chronic) Allergies lisinopril Allergy (Verified 08/11/17 21:35) Angioedema amlodipine [From Norvasc] Adverse Reaction (Severe, Verified 08/11/17 21:35) Freezes up limbs nifedipine [From Nifedical XL] Adverse Reaction (Severe, Verified 08/11/17 21:35) Freezes up limbs alendronate sodium [From Fosamax] Adverse Reaction (Intermediate, Verified 08/11/17 21:35) GI upset codeine Adverse Reaction (Verified 08/11/17 21:35) Unknown ibuprofen Adverse Reaction (Verified 08/11/17 21:35) Other HCTA Adverse Reaction (Intermediate, Uncoded 08/11/17 21:35) Low sodium LIPITOR Adverse Reaction (Uncoded 08/11/17 21:35) Unknown Home Medications: Ambulatory Orders Medication Instructions Recorded Cholecalciferol (VIT D3) [Vitamin 5,000 unit PO DAILY 05/22/14 D3] Vitamin B Complex 1 ea PO DAILY 05/22/14 Lactulose [Chronulac] 20 gm PO DAILY PRN 07/15/16 magnesium 250 mg tablet 750 mg PO QHS tab 06/16/17 folic acid-vit B6-vit B12 0.5 mg-5 1 tab PO QDAY 07/02/17 mg-0.2 mg tablet vitamin A palmitate 10,000 unit 10,000 unit PO QDAY ea 07/02/17 capsule Acetaminophen [Tylenol Tablet] 650 mg PO Q4H PRN PRN tablet 08/18/17 Metoprolol(XL)Succ [Toprol Xl 50 mg PO BID 08/18/17 (Beta Berenice)] Surgical History: total knee arthroplasty, tonsillectomy Psychiatric History: No pertinent psych hx COURTROOM REPORTER History: No pertinent COURTROOM REPORTER history Lives: With Family - Sister. Smoking Status: Never smoker Tobacco Use: Non-smoker Alcohol: None Drugs: None - *Family History Paternal History Items: - - AAA Maternal History Items: Heart Disease Sibling History Items: Diabetes Review of Systems Constitutional: Reports: Weakness. Denies: Chills, Fever, Weight Change HEENT: Denies: Head Aches, Sinus Congestion, Sinus Drainage Cardiovascular: Denies: Chest Pain, Palpitations Respiratory: Denies: Cough, Shortness of breath at rest, Sputum production Gastrointestinal: Denies: Abdominal Pain, Nausea, Vomiting Genitourinary: Denies: Dysuria Musculoskeletal: Denies: Joint Pain, Joint Tenderness Skin: Denies: Rash, Wounds Neurological: Denies: Numbness, Tingling, Focal weakness Psychiatric: Denies: Anxiety, Depression, Homicidal Ideations, Suicidal Ideations Hematologic/ Lymphatic: Denies: Easy Bruising, Easy Bleeding VTE Information - Inpt Only VTE Present on Admission: No VTE Mechan Device Prophylaxis: Knee High LORRIE Hose VTE Pharm Prophylaxis ordered?: Yes Patient Problems: Active and Suspected Problems (Last Updated 07/02/17 @ 14:42 by Eulalia Torres) Encephalopathy (Acute) - Physical Exam General: Alert, Oriented x3, Cooperative HEENT: Atraumatic, PERRLA, EOMI, Normocephalic Neck: Supple, No JVD, Negative Carotid Bruits Lungs: Clear to auscultation, Normal air movement Cardiovascular: Regular rate, No murmurs Abdomen: Bowel Sounds Present, Soft, Non Tender Extremities: No edema, Capillary Refill Less than 3 Seconds Skin: No rashes, No breakdown Musculoskeletal: No Tenderness to Palpation of Joints or Extremities Neurological: Cranial nerves II-XII grossly intact Psych/Mental Status: Normal Affect, Appropriate Vital Signs Temp Pulse Resp BP Pulse Ox 97.0 F L 60 16 154/77 H 96 08/18/17 16:21 08/18/17 18:15 08/18/17 16:21 08/18/17 16:21 08/18/17 16:21 Oxygen Delivery Method Room Air Weight: 77.111 kg Body Mass Index (BMI) 35.5 Finger Stick Blood Glucose 122 Assessment/Plan Active and Suspected Problems (Last Updated 07/02/17 @ 14:42 by Eulalia Torres) Encephalopathy (Acute) 71 year old female with below past medical history hospitalized for Debility secondary to fall, complicated by persistent encephalopathy, admitted to TCU for rehabilitation, strengthening, prior to discharge home with sister. Debility - PT/OT. Pain - Tylenol 1000MG Q8H PRN mild pain. Bowel - Miralax 17GM daily, Lactulose 20GM daily PRN. Pneumonia vaccination - Administer Prevnar 13 and/or Pneumovax 23 as necessary DVT prophylaxis - Lovenox 40MG sc daily. Vitamin D deficiency - D3 5000IU daily. Hypomagnesemia - Mag Oxide 400MG QHS. Hypertension - Metoprolol succinate 50MG BID.
--- NOTE | 2017-08-18 20:38 | HP.PCM_ITS ---
Problem List (1) Encephalopathy Status: Acute (2) Stroke Status: Chronic (3) Constipation Status: Chronic (4) Fall with injury Status: Acute Qualifiers: (5) Gastroparesis Status: Chronic (6) Myelopathy Status: Chronic (7) Low back pain Status: Chronic (8) Aortic stenosis Status: Chronic (9) Hypertension Status: Chronic Qualifiers: (10) Sarcoidosis Status: Chronic History of Present Illness Date of Admission: 08/18/17 Chief Complaint: Here for rehabilitation, strengthening, prior to discharge home with sister. The patient is a 71 year old Female with below past medical history presented to [facility] Emergency Department 08/11/2017 with fall, hip pain. 08/11/2017 CT brain chronic involutional changes of brain. 08/11/2017 EKG normal sinus rhythm, left axis deviation, anterior infarct, age undetermined. 08/11/2017 X-ray pelvis, right hip, showed arthritis, negative for fracture. 08/11/2017 Chest X-ray negative. Unable to stand, usually walks with walker. Chills, sweats x 24 hours, dry cough. Malaise, generalized weakness. Labs okay, UA negative. IV fluids, continued mild delirium. Unable to ambulate, Levaquin given. 08/11/2017 Admit to Hospital. Continue Levaquin. IV Fluids. 08/12/2017 Chest X-ray negative. Antibiotics stopped. Encephalopathy persists. 08/13/2017 PT/OT recommends SNF. Awaiting insurance approval for SNF. 08/18/2017 Admit to TCU for rehabilitation, strengthening, prior to discharge home with sister. Encephalopathy cleared at time of my interview. Past Medical History Past Medical History (Chronic Problems): Chronic Problems (Last Updated 07/02/17 @ 14:42 by Eulalia Torres) Anxiety (Chronic) Osteoarthritis (Chronic) Stroke (Chronic) Constipation (Chronic) BMI 40.0-44.9, adult (Chronic) Gastroparesis (Chronic) Myelopathy (Chronic) Spinal cord lesion (Chronic) Low back pain (Chronic) Myalgia and myositis (Chronic) Malaise and fatigue (Chronic) Supraventricular tachycardia (Chronic) Palpitations (Chronic) Subsequent non-ST elevation (NSTEMI) myocardial infarction (Chronic) 02/16/15 Aortic stenosis (Chronic) Hypertension (Chronic) Sarcoidosis (Chronic) Obesity (BMI 30-39.9) (Chronic) Malabsorption (Chronic) Allergies lisinopril Allergy (Verified 08/11/17 21:35) Angioedema amlodipine [From Norvasc] Adverse Reaction (Severe, Verified 08/11/17 21:35) Freezes up limbs nifedipine [From Nifedical XL] Adverse Reaction (Severe, Verified 08/11/17 21:35 ) Freezes up limbs alendronate sodium [From Fosamax] Adverse Reaction (Intermediate, Verified 08/11 21:35) GI upset codeine Adverse Reaction (Verified 08/11/17 21:35) Unknown ibuprofen Adverse Reaction (Verified 08/11/17 21:35) Other HCTA Adverse Reaction (Intermediate, Uncoded 08/11/17 21:35) Low sodium LIPITOR Adverse Reaction (Uncoded 08/11/17 21:35) Unknown Home Medications: Ambulatory Orders Medication Instructions Recorded Cholecalciferol (VIT D3) [Vitamin 5,000 unit PO DAILY 05/22/14 D3] Vitamin B Complex 1 ea PO DAILY 05/22/14 Lactulose [Chronulac] 20 gm PO DAILY PRN 07/15/16 magnesium 250 mg tablet 750 mg PO QHS tab 06/16/17 folic acid-vit B6-vit B12 0.5 mg-5 1 tab PO QDAY 07/02/17 mg-0.2 mg tablet vitamin A palmitate 10,000 unit 10,000 unit PO QDAY ea 07/02/17 capsule Acetaminophen [Tylenol Tablet] 650 mg PO Q4H PRN PRN tablet 08/18/17 Metoprolol(XL)Succ [Toprol Xl 50 mg PO BID 08/18/17 (Beta Berenice)] Surgical History: total knee arthroplasty, tonsillectomy Psychiatric History: 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 Smoking Status: Never smoker Tobacco Use: Non-smoker Alcohol: None Drugs: None - *Family History Paternal History Items: - - AAA Maternal History Items: Heart Disease Sibling History Items: Diabetes Review of Systems Constitutional: Reports: Weakness. Denies: Chills, Fever, Weight Change HEENT: Denies: Head Aches, Sinus Congestion, Sinus Drainage Cardiovascular: Denies: Chest Pain, Palpitations Respiratory: Denies: Cough, Shortness of breath at rest, Sputum production Gastrointestinal: Denies: Abdominal Pain, Nausea, Vomiting Genitourinary: Denies: Dysuria Musculoskeletal: Denies: Joint Pain, Joint Tenderness Skin: Denies: Rash, Wounds Neurological: Denies: Numbness, Tingling, Focal weakness Psychiatric: Denies: Anxiety, Depression, Homicidal Ideations, Suicidal Ideations Hematologic/ Lymphatic: Denies: Easy Bruising, Easy Bleeding VTE Information - Inpt Only VTE Present on Admission: No VTE Mechan Device Prophylaxis: Knee High LORRIE Hose VTE Pharm Prophylaxis ordered?: Yes Patient Problems: Active and Suspected Problems (Last Updated 07/02/17 @ 14:42 by Eulalia Torres) Encephalopathy (Acute) - Physical Exam General: Alert, Oriented x3, Cooperative HEENT: Atraumatic, PERRLA, EOMI, Normocephalic Neck: Supple, No JVD, Negative Carotid Bruits Lungs: Clear to auscultation, Normal air movement Cardiovascular: Regular rate, No murmurs Abdomen: Bowel Sounds Present, Soft, Non Tender Extremities: No edema, Capillary Refill Less than 3 Seconds Skin: No rashes, No breakdown Musculoskeletal: No Tenderness to Palpation of Joints or Extremities Neurological: Cranial nerves II-XII grossly intact Psych/Mental Status: Normal Affect, Appropriate Vital Signs Temp Pulse Resp BP Pulse Ox 97.0 F L 60 16 154/77 H 96 08/18/17 16:21 08/18/17 18:15 08/18/17 16:21 08/18/17 16:21 08/18/17 16:21 Oxygen Delivery Method Room Air Weight: 77.111 kg Body Mass Index (BMI) 35.5 Finger Stick Blood Glucose 122 Assessment/Plan Active and Suspected Problems (Last Updated 07/02/17 @ 14:42 by Eulalia Torres) Encephalopathy (Acute) 71 year old female with below past medical history hospitalized for Debility secondary to fall, complicated by persistent encephalopathy, admitted to TCU for rehabilitation, strengthening, prior to discharge home with sister. * Debility - PT/OT. * Pain - Tylenol 1000MG Q8H PRN mild pain. * Bowel - Miralax 17GM daily, Lactulose 20GM daily PRN. * Pneumonia vaccination - Administer Prevnar 13 and/or Pneumovax 23 as necessary * DVT prophylaxis - Lovenox 40MG sc daily. * Vitamin D deficiency - D3 5000IU daily. * Hypomagnesemia - Mag Oxide 400MG QHS. * Hypertension - Metoprolol succinate 50MG BID.
[2017-08-19] MEDS: Acetaminophen 325 MG Tablet 650 MG PO ×4 (03:29→21:03)
[2017-08-19 06:03] LABS: Absolute Lymphocyte Count 1.56 X10^3/ul (0.83-4.51); Absolute Neutrophil Count 3.4 X10^3/uL (2.0-7.7); Basophil# 0.04 X10^3/uL; Basophil% 0.7 % (0-1); Eosinophil# 0.21 X10^3/uL; Eosinophils% 3.5 % (0-5); Hematocrit 38.7 % (37-47); Hemoglobin 12.7 g/dl (12.0-15.0); Lymphocyte # 1.56 X10^3/ul (4.0); Lymphocyte % 26.3 % (19-41); Mean Corp Hgb Conc 32.8 g/gl (32-36); Mean Corpuscular Hgb 31.4 pg (27.0-32.0); Mean Corpuscular Volume 95.8 fL (81-99); Mean Platelet Vol. 10.1 fl (6.2-12.0); Monocyte# 0.68 X10^3/uL; Monocyte% 11.4 % (0-10); Neutrophil # 3.41 X10^3/uL (2.7-7.7); Neutrophil % 57.4 % (47-70); Platelet Count 242 K/mm3 (150-450); RBC Distribution Width CV 12.6 % (11.6-14.6); RBC Distribution Width SD 43.1 fl (35.1-43.9); Red Blood Count 4.04 M/mm3 (4.2-5.4); White Blood Count 5.9 K/mm3 (4.4-11.0)
[2017-08-19 06:09] LABS: Differential Indicated SCAN CRITERIA MET; POSITIVE COUNT NO; POSITIVE DIFFERENTIAL NO; POSITIVE MORPHOLOGY YES
[2017-08-19 06:10] LABS: Anion Gap 8 (5-15); BUN 13 mg/dL (7-18); BUN/Creat Ratio 19.4 RATIO (10-20); Calcium,Total 8.7 mg/dL (8.5-10.1); Chloride 104 mmol/L (98-107); Creatinine, Serum 0.67 mg/dL (0.55-1.02); EST Glomerular Filtration Rate 92 mL/min (>60); Est Glom Filt Rate - Afr Amer 111 mL/min (>60); Estimated Creatinine Clearance 62.81 ml/min; Glucose 87 mg/dL (74-106); Potassium 3.9 mmol/L (3.5-5.1); Sodium Level 142 mmol/L (136-145)
[2017-08-19 06:24] LABS: Anisocytosis RARE; Macrocytosis RARE; Platelet Estimate ADEQUATE (ADEQ); Platelet Morphology LARGE
[2017-08-19 06:27] VITALS: BP 153/72; PULSE 56
[2017-08-19] MEDS: Vitamin B Comp W-C Capsule 1 CAP PO (06:27)
[2017-08-19] MEDS: Metoprolol(XL)Succ 50 MG Tablet PO ×2 (06:27→17:13)
[2017-08-19] MEDS: Folic Acid 1 MG Tablet 0.5 MG PO (08:27)
[2017-08-19] MEDS: Cyanocobalamin 500 MCG Tablet PO (08:27)
[2017-08-19] MEDS: Pyridoxine HCl 50 MG Tablet PO (08:27)
[2017-08-19] MEDS: Tuberculin,Purif.prot.deriv. 50 TU/ML Vial 5 ML ID (11:24)
--- NOTE | 2017-08-19 14:56 | PCM.PN.RX ---
<Ernesto Washington - Last Filed: 08/19/17 14:56> Progress Note - Pharmacy Subjective: TCU Admission Objective: Allergies lisinopril Allergy (Verified 08/11/17 21:35) Angioedema amlodipine [From Norvasc] Adverse Reaction (Severe, Verified 08/11/17 21:35) Freezes up limbs nifedipine [From Nifedical XL] Adverse Reaction (Severe, Verified 08/11/17 21:35) Freezes up limbs alendronate sodium [From Fosamax] Adverse Reaction (Intermediate, Verified 08/11/17 21:35) GI upset codeine Adverse Reaction (Verified 08/11/17 21:35) Unknown ibuprofen Adverse Reaction (Verified 08/11/17 21:35) Other HCTA Adverse Reaction (Intermediate, Uncoded 08/11/17 21:35) Low sodium LIPITOR Adverse Reaction (Uncoded 08/11/17 21:35) Unknown Home Medications Medication Instructions Recorded Cholecalciferol (VIT D3) [Vitamin 5,000 unit PO DAILY 05/22/14 D3] Vitamin B Complex 1 ea PO DAILY 05/22/14 Lactulose [Chronulac] 20 gm PO DAILY PRN 07/15/16 magnesium 250 mg tablet 750 mg PO QHS tab 06/16/17 folic acid-vit B6-vit B12 0.5 mg-5 1 tab PO QDAY 07/02/17 mg-0.2 mg tablet vitamin A palmitate 10,000 unit 10,000 unit PO QDAY ea 07/02/17 capsule Acetaminophen [Tylenol Tablet] 650 mg PO Q4H PRN PRN tablet 08/18/17 Metoprolol(XL)Succ [Toprol Xl 50 mg PO BID 08/18/17 (Beta Berenice)] Current Medications Generic Name Dose Route Start Last Admin Trade Name Freq PRN Reason Stop Dose Admin Acetaminophen 650 mg 08/18/17 16:27 08/19/17 11:23 Tylenol PO 325 mg Q4H PRN PRN Administration PAIN Cholecalciferol 5,000 unit 08/19/17 06:00 08/19/17 06:27 Vitamin D PO 5,000 unit DAILY [facility] Administration Cyanocobalamin 500 mcg 08/19/17 08:00 08/19/17 08:27 Vitamin B12 PO 500 mcg DAILY@0800 [facility] Administration Folic Acid 0.5 mg 08/19/17 08:00 08/19/17 08:27 Folic Acid PO 0.5 mg DAILY@0800 [facility] Administration Lactulose 20 gm 08/18/17 16:27 Chronulac, Cephulac PO DAILY PRN Constipation Magnesium Oxide 600 mg 08/19/17 22:00 Mag-Ox 400 PO HS [facility] Metoprolol Succinate 50 mg 08/18/17 18:00 08/19/17 06:27 Toprol Xl (Beta Berenice) PO 50 mg BID [facility] Administration Multivitamins 1 capsule 08/19/17 06:00 08/19/17 06:27 Allbee W/C Caplet, Thera B Comp/C PO 1 capsule DAILY [facility] Administration Nystatin 1 applic 08/19/17 22:00 Mycostatin Powder TOPICAL 0600,2200 [facility] Protocol Pyridoxine HCl 50 mg 08/19/17 08:00 08/19/17 08:27 Vitamin B-6 PO 50 mg DAILY@0800 [facility] Administration Tuberculin PPD 5 tu 08/26/17 10:00 Tubersol, Aplisol, Ppd ID 08/26/17 10:01 X1 ONE Problem List (Last Updated 07/02/17 @ 14:42 by Eulalia Torres) Encephalopathy (Acute) Stroke (Chronic) Constipation (Chronic) Vital Signs Temp Pulse Resp BP Pulse Ox 97.0 F L 56 L 16 153/72 H 96 08/18/17 16:21 08/19/17 06:27 08/18/17 16:21 08/19/17 06:27 08/18/17 16:21 Oxygen Delivery Method Room Air Weight: 78.585 kg Body Mass Index (BMI) 35.5 Finger Stick Blood Glucose 122 Sodium 142 mmol/L (136-145) 08/19/17 05:10 Potassium 3.9 mmol/L (3.5-5.1) 08/19/17 05:10 Chloride 104 mmol/L (98-107) 08/19/17 05:10 Carbon Dioxide 30.0 mmol/L (21.0-32.0) 08/19/17 05:10 Anion Gap 8 (5-15) 08/19/17 05:10 BUN 13 mg/dL (7-18) 08/19/17 05:10 Creatinine 0.67 mg/dL (0.55-1.02) 08/19/17 05:10 Est GFR (MDRD) Af Amer 111 mL/min (>60) 08/19/17 05:10 Est GFR (MDRD) Non-Af 92 mL/min (>60) 08/19/17 05:10 BUN/Creatinine Ratio 19.4 RATIO (10-20) 08/19/17 05:10 Glucose 87 mg/dL (74-106) 08/19/17 05:10 Assessment/Plan: 1) Pain APAP for pain. Continue to monitor prn medication use, daily pain scores. 2) HTN Metoprolol XL twice daily. Metoprolol was increased during hospital admission, HR currently avg 50s. Continue to monitor BP/HR. 3) Nutrition B complex, B6, MgOx, FA, B12, D. Continue to monitor clinically. Psychotropic Medications: None Unnecessary Medications: None Bowel Regimen: 4) Lactulose as needed. Continue to monitor prn medication use, for constipation/diarrhea. Date of Note:: 08/19/17 - Provider Comments Provider responsibility: Provider responsible to enter orders to implement recommendations <Michael Snowden Chi - Last Filed: 08/19/17 17:56> Progress Note - Pharmacy Subjective: [] Objective: Allergies lisinopril Allergy (Verified 08/11/17 21:35) Angioedema amlodipine [From Norvasc] Adverse Reaction (Severe, Verified 08/11/17 21:35) Freezes up limbs nifedipine [From Nifedical XL] Adverse Reaction (Severe, Verified 08/11/17 21:35) Freezes up limbs alendronate sodium [From Fosamax] Adverse Reaction (Intermediate, Verified 08/11/17 21:35) GI upset codeine Adverse Reaction (Verified 08/11/17 21:35) Unknown ibuprofen Adverse Reaction (Verified 08/11/17 21:35) Other HCTA Adverse Reaction (Intermediate, Uncoded 08/11/17 21:35) Low sodium LIPITOR Adverse Reaction (Uncoded 08/11/17 21:35) Unknown Home Medications Medication Instructions Recorded Cholecalciferol (VIT D3) [Vitamin 5,000 unit PO DAILY 05/22/14 D3] Vitamin B Complex 1 ea PO DAILY 05/22/14 Lactulose [Chronulac] 20 gm PO DAILY PRN 07/15/16 magnesium 250 mg tablet 750 mg PO QHS tab 06/16/17 folic acid-vit B6-vit B12 0.5 mg-5 1 tab PO QDAY 07/02/17 mg-0.2 mg tablet vitamin A palmitate 10,000 unit 10,000 unit PO QDAY ea 07/02/17 capsule Acetaminophen [Tylenol Tablet] 650 mg PO Q4H PRN PRN tablet 08/18/17 Metoprolol(XL)Succ [Toprol Xl 50 mg PO BID 08/18/17 (Beta Berenice)] Current Medications Generic Name Dose Route Start Last Admin Trade Name Freeren PRN Reason Stop Dose Admin Acetaminophen 650 mg 08/18/17 16:27 08/19/17 11:23 Tylenol PO 325 mg Q4H PRN PRN Administration PAIN Cholecalciferol 5,000 unit 08/19/17 06:00 08/19/17 06:27 Vitamin D PO 5,000 unit DAILY [facility] Administration Cyanocobalamin 500 mcg 08/19/17 08:00 08/19/17 08:27 Vitamin B12 PO 500 mcg DAILY@0800 [facility] Administration Folic Acid 0.5 mg 08/19/17 08:00 08/19/17 08:27 Folic Acid PO 0.5 mg DAILY@0800 [facility] Administration Lactulose 20 gm 08/18/17 16:27 Chronulac, Cephulac PO DAILY PRN Constipation Magnesium Oxide 600 mg 08/19/17 22:00 Mag-Ox 400 PO HS [facility] Metoprolol Succinate 50 mg 08/18/17 18:00 08/19/17 17:13 Toprol Xl (Beta Berenice) PO 50 mg BID [facility] Administration Multivitamins 1 capsule 08/19/17 06:00 08/19/17 06:27 Allbee W/C Caplet, Thera B Comp/C PO 1 capsule DAILY [facility] Administration Nutritional Formula (Lactose Free) 120 ml 08/19/17 20:00 Glucerna Shake PO 10,14,20 [facility] Nystatin 1 applic 08/19/17 22:00 Mycostatin Powder TOPICAL 0600,2200 [facility] Protocol Pyridoxine HCl 50 mg 08/19/17 08:00 08/19/17 08:27 Vitamin B-6 PO 50 mg DAILY@0800 [facility] Administration Tuberculin PPD 5 tu 08/26/17 10:00 Tubersol, Aplisol, Ppd ID 08/26/17 10:01 X1 ONE Problem List (Last Updated 07/02/17 @ 14:42 by Eulalia Torres) Encephalopathy (Acute) Stroke (Chronic) Constipation (Chronic) Vital Signs Temp Pulse Resp BP Pulse Ox 98.3 F 60 18 144/84 H 98 08/19/17 15:55 08/19/17 17:13 08/19/17 15:55 08/19/17 15:55 08/19/17 15:55 Oxygen Delivery Method Room Air Weight: 78.585 kg Body Mass Index (BMI) 35.5 Finger Stick Blood Glucose 122 Sodium 142 mmol/L (136-145) 08/19/17 05:10 Potassium 3.9 mmol/L (3.5-5.1) 08/19/17 05:10 Chloride 104 mmol/L (98-107) 08/19/17 05:10 Carbon Dioxide 30.0 mmol/L (21.0-32.0) 08/19/17 05:10 Anion Gap 8 (5-15) 08/19/17 05:10 BUN 13 mg/dL (7-18) 08/19/17 05:10 Creatinine 0.67 mg/dL (0.55-1.02) 08/19/17 05:10 Est GFR (MDRD) Af Amer 111 mL/min (>60) 08/19/17 05:10 Est GFR (MDRD) Non-Af 92 mL/min (>60) 08/19/17 05:10 BUN/Creatinine Ratio 19.4 RATIO (10-20) 08/19/17 05:10 Glucose 87 mg/dL (74-106) 08/19/17 05:10 Assessment/Plan: Psychotropic Medications: Unnecessary Medications: Bowel Regimen: - Provider Comments Provider responsibility: Provider responsible to enter orders to implement recommendations Provider Comments to Recommendations by Pharmacy: Agree
--- NOTE | 2017-08-19 15:01 | PHA.CONS_ITS ---
<Ernesto Washington - Last Filed: 08/19/17 14:56> Progress Note - Pharmacy Subjective: TCU Admission Objective: Allergies lisinopril Allergy (Verified 08/11/17 21:35) Angioedema amlodipine [From Norvasc] Adverse Reaction (Severe, Verified 08/11/17 21:35) Freezes up limbs nifedipine [From Nifedical XL] Adverse Reaction (Severe, Verified 08/11/17 21:35 ) Freezes up limbs alendronate sodium [From Fosamax] Adverse Reaction (Intermediate, Verified 08/11 21:35) GI upset codeine Adverse Reaction (Verified 08/11/17 21:35) Unknown ibuprofen Adverse Reaction (Verified 08/11/17 21:35) Other HCTA Adverse Reaction (Intermediate, Uncoded 08/11/17 21:35) Low sodium LIPITOR Adverse Reaction (Uncoded 08/11/17 21:35) Unknown Home Medications Medication Instructions Recorded Cholecalciferol (VIT D3) [Vitamin 5,000 unit PO DAILY 05/22/14 D3] Vitamin B Complex 1 ea PO DAILY 05/22/14 Lactulose [Chronulac] 20 gm PO DAILY PRN 07/15/16 magnesium 250 mg tablet 750 mg PO QHS tab 06/16/17 folic acid-vit B6-vit B12 0.5 mg-5 1 tab PO QDAY 07/02/17 mg-0.2 mg tablet vitamin A palmitate 10,000 unit 10,000 unit PO QDAY ea 07/02/17 capsule Acetaminophen [Tylenol Tablet] 650 mg PO Q4H PRN PRN tablet 08/18/17 Metoprolol(XL)Succ [Toprol Xl 50 mg PO BID 08/18/17 (Beta Berenice)] Current Medications Generic Name Dose Route Start Last Admin Trade Name Freq PRN Reason Stop Dose Admin Acetaminophen 650 mg 08/18/17 16:27 08/19/17 11:23 Tylenol PO 325 mg Q4H PRN PRN Administration PAIN Cholecalciferol 5,000 unit 08/19/17 06:00 08/19/17 06:27 Vitamin D PO 5,000 unit DAILY [facility] Administration Cyanocobalamin 500 mcg 08/19/17 08:00 08/19/17 08:27 Vitamin B12 PO 500 mcg DAILY@0800 [facility] Administration Folic Acid 0.5 mg 08/19/17 08:00 08/19/17 08:27 Folic Acid PO 0.5 mg DAILY@0800 [facility] Administration Lactulose 20 gm 08/18/17 16:27 Chronulac, Cephulac PO DAILY PRN Constipation Magnesium Oxide 600 mg 08/19/17 22:00 Mag-Ox 400 PO HS [facility] Metoprolol Succinate 50 mg 08/18/17 18:00 08/19/17 06:27 Toprol Xl (Beta Berenice) PO 50 mg BID [facility] Administration Multivitamins 1 capsule 08/19/17 06:00 08/19/17 06:27 Allbee W/C Caplet, Thera B Comp/C PO 1 capsule DAILY [facility] Administration Nystatin 1 applic 08/19/17 22:00 Mycostatin Powder TOPICAL 0600,2200 [facility] Protocol Pyridoxine HCl 50 mg 08/19/17 08:00 08/19/17 08:27 Vitamin B-6 PO 50 mg DAILY@0800 [facility] Administration Tuberculin PPD 5 tu 08/26/17 10:00 Tubersol, Aplisol, Ppd ID 08/26/17 10:01 X1 ONE Problem List (Last Updated 07/02/17 @ 14:42 by Eulalia Torres) Encephalopathy (Acute) Stroke (Chronic) Constipation (Chronic) Vital Signs Temp Pulse Resp BP Pulse Ox 97.0 F L 56 L 16 153/72 H 96 08/18/17 16:21 08/19/17 06:27 08/18/17 16:21 08/19/17 06:27 08/18/17 16:21 Oxygen Delivery Method Room Air Weight: 78.585 kg Body Mass Index (BMI) 35.5 Finger Stick Blood Glucose 122 Sodium 142 mmol/L (136-145) 08/19/17 05:10 Potassium 3.9 mmol/L (3.5-5.1) 08/19/17 05:10 Chloride 104 mmol/L (98-107) 08/19/17 05:10 Carbon Dioxide 30.0 mmol/L (21.0-32.0) 08/19/17 05:10 Anion Gap 8 (5-15) 08/19/17 05:10 BUN 13 mg/dL (7-18) 08/19/17 05:10 Creatinine 0.67 mg/dL (0.55-1.02) 08/19/17 05:10 Est GFR (MDRD) Af Amer 111 mL/min (>60) 08/19/17 05:10 Est GFR (MDRD) Non-Af 92 mL/min (>60) 08/19/17 05:10 BUN/Creatinine Ratio 19.4 RATIO (10-20) 08/19/17 05:10 Glucose 87 mg/dL (74-106) 08/19/17 05:10 Assessment/Plan: 1) Pain APAP for pain. Continue to monitor prn medication use, daily pain scores. 2) HTN Metoprolol XL twice daily. Metoprolol was increased during hospital admission , HR currently avg 50s. Continue to monitor BP/HR. 3) Nutrition B complex, B6, MgOx, FA, B12, D. Continue to monitor clinically. Psychotropic Medications: None Unnecessary Medications: None Bowel Regimen: 4) Lactulose as needed. Continue to monitor prn medication use, for constipation /diarrhea. Date of Note:: 08/19/17 - Provider Comments Provider responsibility: Provider responsible to enter orders to implement recommendations <Michael Snowden Chi - Last Filed: 08/19/17 17:56> Progress Note - Pharmacy Subjective: [] Objective: Allergies lisinopril Allergy (Verified 08/11/17 21:35) Angioedema amlodipine [From Norvasc] Adverse Reaction (Severe, Verified 08/11/17 21:35) Freezes up limbs nifedipine [From Nifedical XL] Adverse Reaction (Severe, Verified 08/11/17 21:35 ) Freezes up limbs alendronate sodium [From Fosamax] Adverse Reaction (Intermediate, Verified 08/11 21:35) GI upset codeine Adverse Reaction (Verified 08/11/17 21:35) Unknown ibuprofen Adverse Reaction (Verified 08/11/17 21:35) Other HCTA Adverse Reaction (Intermediate, Uncoded 08/11/17 21:35) Low sodium LIPITOR Adverse Reaction (Uncoded 08/11/17 21:35) Unknown Home Medications Medication Instructions Recorded Cholecalciferol (VIT D3) [Vitamin 5,000 unit PO DAILY 05/22/14 D3] Vitamin B Complex 1 ea PO DAILY 05/22/14 Lactulose [Chronulac] 20 gm PO DAILY PRN 07/15/16 magnesium 250 mg tablet 750 mg PO QHS tab 06/16/17 folic acid-vit B6-vit B12 0.5 mg-5 1 tab PO QDAY 07/02/17 mg-0.2 mg tablet vitamin A palmitate 10,000 unit 10,000 unit PO QDAY ea 07/02/17 capsule Acetaminophen [Tylenol Tablet] 650 mg PO Q4H PRN PRN tablet 08/18/17 Metoprolol(XL)Succ [Toprol Xl 50 mg PO BID 08/18/17 (Beta Berenice)] Current Medications Generic Name Dose Route Start Last Admin Trade Name Freeren PRN Reason Stop Dose Admin Acetaminophen 650 mg 08/18/17 16:27 08/19/17 11:23 Tylenol PO 325 mg Q4H PRN PRN Administration PAIN Cholecalciferol 5,000 unit 08/19/17 06:00 08/19/17 06:27 Vitamin D PO 5,000 unit DAILY [facility] Administration Cyanocobalamin 500 mcg 08/19/17 08:00 08/19/17 08:27 Vitamin B12 PO 500 mcg DAILY@0800 [facility] Administration Folic Acid 0.5 mg 08/19/17 08:00 08/19/17 08:27 Folic Acid PO 0.5 mg DAILY@0800 [facility] Administration Lactulose 20 gm 08/18/17 16:27 Chronulac, Cephulac PO DAILY PRN Constipation Magnesium Oxide 600 mg 08/19/17 22:00 Mag-Ox 400 PO HS [facility] Metoprolol Succinate 50 mg 08/18/17 18:00 08/19/17 17:13 Toprol Xl (Beta Berenice) PO 50 mg BID [facility] Administration Multivitamins 1 capsule 08/19/17 06:00 08/19/17 06:27 Allbee W/C Caplet, Thera B Comp/C PO 1 capsule DAILY [facility] Administration Nutritional Formula (Lactose Free) 120 ml 08/19/17 20:00 Glucerna Shake PO 10,14,20 [facility] Nystatin 1 applic 08/19/17 22:00 Mycostatin Powder TOPICAL 0600,2200 [facility] Protocol Pyridoxine HCl 50 mg 08/19/17 08:00 08/19/17 08:27 Vitamin B-6 PO 50 mg DAILY@0800 [facility] Administration Tuberculin PPD 5 tu 08/26/17 10:00 Tubersol, Aplisol, Ppd ID 08/26/17 10:01 X1 ONE Problem List (Last Updated 07/02/17 @ 14:42 by Eulalia Torres) Encephalopathy (Acute) Stroke (Chronic) Constipation (Chronic) Vital Signs Temp Pulse Resp BP Pulse Ox 98.3 F 60 18 144/84 H 98 08/19/17 15:55 08/19/17 17:13 08/19/17 15:55 08/19/17 15:55 08/19/17 15:55 Oxygen Delivery Method Room Air Weight: 78.585 kg Body Mass Index (BMI) 35.5 Finger Stick Blood Glucose 122 Sodium 142 mmol/L (136-145) 08/19/17 05:10 Potassium 3.9 mmol/L (3.5-5.1) 08/19/17 05:10 Chloride 104 mmol/L (98-107) 08/19/17 05:10 Carbon Dioxide 30.0 mmol/L (21.0-32.0) 08/19/17 05:10 Anion Gap 8 (5-15) 08/19/17 05:10 BUN 13 mg/dL (7-18) 08/19/17 05:10 Creatinine 0.67 mg/dL (0.55-1.02) 08/19/17 05:10 Est GFR (MDRD) Af Amer 111 mL/min (>60) 08/19/17 05:10 Est GFR (MDRD) Non-Af 92 mL/min (>60) 08/19/17 05:10 BUN/Creatinine Ratio 19.4 RATIO (10-20) 08/19/17 05:10 Glucose 87 mg/dL (74-106) 08/19/17 05:10 Assessment/Plan: Psychotropic Medications: Unnecessary Medications: Bowel Regimen: - Provider Comments Provider responsibility: Provider responsible to enter orders to implement recommendations Provider Comments to Recommendations by Pharmacy: Agree
[2017-08-19 15:55] VITALS: BP 144/84; PULSE 59; RESP 18; TEMP 36.8; O2SAT 98
[2017-08-19 17:13] VITALS: PULSE 60
[2017-08-19] MEDS: Magnesium Oxide 400 MG Tablet 600 MG PO (21:03)
[2017-08-19] MEDS: Glucerna Shake 120 ML LIQUID PO (21:03)
[2017-08-19] MEDS: Nystatin Powder 15gm Bottle 1 APPLIC TOPICAL (21:05)
--- NOTE | 2017-08-20 02:13 | NURSING ---
Pt called out to nurses' station to use restroom. RN prompt to address call light. Prior to assisting pt out of bed pt stated, I think I already peed a little. While transferring pt to restroom pt informed this nurse she was peeing. Pt urinated on floor. Pt's underwear and shorts saturated. No other clothing noted in room to change pt into. Pt declined wearing mesh pants with pad. Pt agreeable to wearing brief. Pt cleaned, brief applied and transferred back to bed. Pt stated, This is brief is embarrassing. RN offered to remove brief, pt declined. Pt positioned for comfort, fresh water obtained. Prior to leaving room, pt denied further needs. Pt's underwear and shorts rinsed out and hung up to dry. Per MOTION AND TIME STUDY TEACHER pt was incontinent twice the pervious night with complete bed change. Will continue to monitor and asses.
[2017-08-20] MEDS: Enoxaparin 40 MG/0.4 ML Syringe SC (05:59)
[2017-08-20] MEDS: Vitamin B Comp W-C Capsule 1 CAP PO (05:59)
[2017-08-20 06:00] VITALS: BP 160/89; PULSE 64
[2017-08-20] MEDS: Metoprolol(XL)Succ 50 MG Tablet PO ×2 (06:00→17:37)
[2017-08-20] MEDS: Nystatin Powder 15gm Bottle 1 APPLIC TOPICAL ×2 (06:06→20:40)
[2017-08-20] MEDS: Acetaminophen 325 MG Tablet 650 MG PO ×2 (06:18→20:39)
--- NOTE | 2017-08-20 06:58 | NURSING ---
Addendum entered by Kalani Silveira 08/20/17 09:40: NO for straight cath UA C&S, and bladder scan for PVR. Patient made aware. Original Note: Pt having increased urination, pressure and increased incontinence throughout the night. Pt concerned she may have a UTI but has never had one before. Will update Dr. Snowden.
[2017-08-20] MEDS: Cyanocobalamin 500 MCG Tablet PO (08:10)
[2017-08-20] MEDS: Pyridoxine HCl 50 MG Tablet PO (08:11)
[2017-08-20] MEDS: Folic Acid 1 MG Tablet 0.5 MG PO (08:11)
[2017-08-20] MEDS: Glucerna Shake 120 ML LIQUID PO ×3 (11:25→20:35)
[2017-08-20 11:34] LABS: Bacteria 0 SEEN /hpf (None Seen); Mucous, Urine 0 SEEN /hpf (<or=2+); Red Blood Cells-Urine 0 SEEN /hpf (0-5); Squamous Epithelial Cells - UA 0 SEEN /hpf (5-10); White Blood Cells 0 SEEN /hpf (0-5)
[2017-08-20 11:41] LABS: Color, Urine Yellow (Yellow); Glucose, Dipstick Normal (Normal); Ketone-Dipstick Negative (Negative); Leukocyte Esterase-Dipstick Negative /ul (Negative); Nitrite-Dipstick Negative (Negative); Occult Blood-Urine Negative /ul (Negative); Protein-Dipstick Negative (Negative); Urine Bilirubin Dipstick Negative (Negative); Urine Clarity Sl. Cloudy (Clear); Urine Urobilinogen Normal (Normal)
[2017-08-20 15:23] VITALS: BP 144/90; PULSE 68; RESP 20; TEMP 36.8; O2SAT 97
[2017-08-20 17:37] VITALS: PULSE 68
--- NOTE | 2017-08-20 18:13 | NURSING ---
Dr. Snowden reviewed UA results, NO for tolterodine 2mg PO qHS, can d/c bladder scans.
[2017-08-20] MEDS: Magnesium Oxide 400 MG Tablet 600 MG PO (20:34)
[2017-08-20] MEDS: Tolterodine Tartrate 2 MG CAP.SA PO (20:39)
[2017-08-21 05:11] VITALS: BP 134/68; PULSE 64
[2017-08-21] MEDS: Metoprolol(XL)Succ 50 MG Tablet PO ×2 (05:11→16:13)
[2017-08-21] MEDS: Vitamin B Comp W-C Capsule 1 CAP PO (05:11)
[2017-08-21] MEDS: Enoxaparin 40 MG/0.4 ML Syringe SC (05:11)
[2017-08-21] MEDS: Acetaminophen 325 MG Tablet 650 MG PO ×2 (05:11→16:12)
[2017-08-21] MEDS: Nystatin Powder 15gm Bottle 1 APPLIC TOPICAL ×2 (05:15→20:33)
[2017-08-21] MEDS: Pyridoxine HCl 50 MG Tablet PO (09:36)
[2017-08-21] MEDS: Folic Acid 1 MG Tablet 0.5 MG PO (09:36)
[2017-08-21] MEDS: Cyanocobalamin 500 MCG Tablet PO (09:36)
[2017-08-21] MEDS: Glucerna Shake 120 ML LIQUID PO ×3 (09:39→20:32)
--- NOTE | 2017-08-21 11:32 | CASEMGMT ---
Insurance Clinical information sent. Pending continued stay approval at this time. Auth#[id number] Camilla TORO, BUILDING ASSOCIATE
[2017-08-21 16:00] VITALS: BP 136/86; PULSE 53; RESP 18; TEMP 36.9; O2SAT 93
[2017-08-21 16:13] VITALS: BP 136/86; PULSE 53
[2017-08-21] MEDS: Magnesium Oxide 400 MG Tablet 600 MG PO (20:31)
[2017-08-21] MEDS: Tolterodine Tartrate 2 MG CAP.SA PO (20:31)
[2017-08-22 06:16] VITALS: PULSE 75
[2017-08-22 06:24] VITALS: BP 130/82; PULSE 72
[2017-08-22] MEDS: Acetaminophen 325 MG Tablet 650 MG PO ×3 (06:24→23:42)
[2017-08-22] MEDS: Metoprolol(XL)Succ 50 MG Tablet PO ×2 (06:24→17:11)
[2017-08-22] MEDS: Enoxaparin 40 MG/0.4 ML Syringe SC (06:25)
[2017-08-22] MEDS: Vitamin B Comp W-C Capsule 1 CAP PO (06:25)
[2017-08-22] MEDS: Nystatin Powder 15gm Bottle 1 APPLIC TOPICAL ×2 (06:29→20:16)
[2017-08-22] MEDS: Pyridoxine HCl 50 MG Tablet PO (07:29)
[2017-08-22] MEDS: Cyanocobalamin 500 MCG Tablet PO (07:29)
[2017-08-22] MEDS: Folic Acid 1 MG Tablet 0.5 MG PO (07:29)
[2017-08-22] MEDS: Glucerna Shake 120 ML LIQUID PO ×3 (09:38→20:13)
--- NOTE | 2017-08-22 11:09 | CASEMGMT ---
Insurance Continued stay approved with next update due on 08/26/17. Auth#[id number] Camilla TORO, BRANCH MAKER
--- NOTE | 2017-08-22 14:13 | CASEMGMT ---
Brief interview for mental status (BIMS) and resident mood interview completed on this day. BIMS score 15/15. PHQ-9 score 10/24.
[2017-08-22 15:56] VITALS: BP 115/73; PULSE 66; RESP 18; TEMP 36.7; O2SAT 93
[2017-08-22 17:11] VITALS: PULSE 68
[2017-08-22] MEDS: Magnesium Oxide 400 MG Tablet 600 MG PO (20:14)
[2017-08-22] MEDS: Tolterodine Tartrate 2 MG CAP.SA PO (20:14)
[2017-08-23] MEDS: Vitamin B Comp W-C Capsule 1 CAP PO (06:28)
[2017-08-23 06:29] VITALS: BP 137/76; PULSE 61
[2017-08-23] MEDS: Enoxaparin 40 MG/0.4 ML Syringe SC (06:29)
[2017-08-23] MEDS: Metoprolol(XL)Succ 50 MG Tablet PO ×2 (06:29→17:05)
[2017-08-23] MEDS: Nystatin Powder 15gm Bottle 1 APPLIC TOPICAL ×2 (06:32→21:09)
[2017-08-23] MEDS: Cyanocobalamin 500 MCG Tablet PO (09:47)
[2017-08-23] MEDS: Pyridoxine HCl 50 MG Tablet PO (09:47)
[2017-08-23] MEDS: Acetaminophen 325 MG Tablet 650 MG PO ×2 (09:47→21:20)
[2017-08-23] MEDS: Folic Acid 1 MG Tablet 0.5 MG PO (09:47)
[2017-08-23] MEDS: Glucerna Shake 120 ML LIQUID PO (12:09)
[2017-08-23 15:14] VITALS: BP 125/82; PULSE 57; RESP 18; TEMP 36.6; O2SAT 96
[2017-08-23 17:05] VITALS: BP 125/82; PULSE 57
[2017-08-23] MEDS: Magnesium Oxide 400 MG Tablet 600 MG PO (21:07)
[2017-08-23] MEDS: Tolterodine Tartrate 2 MG CAP.SA PO (21:08)
[2017-08-24] MEDS: Enoxaparin 40 MG/0.4 ML Syringe SC (06:02)
[2017-08-24 06:03] VITALS: BP 114/77; PULSE 63
[2017-08-24] MEDS: Vitamin B Comp W-C Capsule 1 CAP PO (06:03)
[2017-08-24] MEDS: Metoprolol(XL)Succ 50 MG Tablet PO ×2 (06:03→17:09)
[2017-08-24] MEDS: Nystatin Powder 15gm Bottle 1 APPLIC TOPICAL ×2 (06:06→20:55)
[2017-08-24] MEDS: Acetaminophen 325 MG Tablet 650 MG PO ×3 (06:08→20:49)
[2017-08-24] MEDS: Cyanocobalamin 500 MCG Tablet PO (08:16)
[2017-08-24] MEDS: Folic Acid 1 MG Tablet 0.5 MG PO (08:16)
[2017-08-24] MEDS: Pyridoxine HCl 50 MG Tablet PO (08:16)
[2017-08-24] MEDS: Glucerna Shake 120 ML LIQUID PO ×3 (10:57→20:51)
[2017-08-24 15:16] VITALS: BP 156/82; PULSE 64; RESP 16; TEMP 36.6; O2SAT 95
[2017-08-24 17:09] VITALS: PULSE 64
[2017-08-24] MEDS: Magnesium Oxide 400 MG Tablet 600 MG PO (20:51)
[2017-08-24] MEDS: Tolterodine Tartrate 2 MG CAP.SA PO (20:53)
[2017-08-25] MEDS: Nystatin Powder 15gm Bottle 1 APPLIC TOPICAL ×2 (04:11→21:23)
[2017-08-25] MEDS: Acetaminophen 325 MG Tablet 650 MG PO ×3 (04:11→14:54)
[2017-08-25 04:12] VITALS: BP 145/66; PULSE 61
[2017-08-25] MEDS: Metoprolol(XL)Succ 50 MG Tablet PO ×2 (04:12→17:23)
[2017-08-25] MEDS: Enoxaparin 40 MG/0.4 ML Syringe SC (04:13)
[2017-08-25] MEDS: Vitamin B Comp W-C Capsule 1 CAP PO (04:13)
[2017-08-25] MEDS: Pyridoxine HCl 50 MG Tablet PO (08:36)
[2017-08-25] MEDS: Cyanocobalamin 500 MCG Tablet PO (08:36)
[2017-08-25] MEDS: Folic Acid 1 MG Tablet 0.5 MG PO (08:36)
[2017-08-25] MEDS: Glucerna Shake 120 ML LIQUID PO ×3 (08:40→21:21)
[2017-08-25 15:18] VITALS: BP 115/77; PULSE 67; RESP 18; TEMP 36.2; O2SAT 93
[2017-08-25 17:23] VITALS: BP 115/77; PULSE 67
[2017-08-25] MEDS: Magnesium Oxide 400 MG Tablet 600 MG PO (21:21)
[2017-08-25] MEDS: Tolterodine Tartrate 2 MG CAP.SA PO (21:21)
[2017-08-26] MEDS: Acetaminophen 325 MG Tablet 650 MG PO ×2 (03:20→09:50)
[2017-08-26 05:17] VITALS: BP 140/83; PULSE 62
[2017-08-26] MEDS: Vitamin B Comp W-C Capsule 1 CAP PO (05:17)
[2017-08-26] MEDS: Metoprolol(XL)Succ 50 MG Tablet PO ×2 (05:17→17:21)
[2017-08-26] MEDS: Enoxaparin 40 MG/0.4 ML Syringe SC (05:19)
[2017-08-26] MEDS: Nystatin Powder 15gm Bottle 1 APPLIC TOPICAL ×2 (05:20→20:27)
[2017-08-26 06:28] LABS: Absolute Lymphocyte Count 1.77 X10^3/ul (0.83-4.51); Absolute Neutrophil Count 3.3 X10^3/uL (2.0-7.7); Anion Gap 8 (5-15); BUN 22 mg/dL (7-18); BUN/Creat Ratio 30.9 RATIO (10-20); Basophil# 0.03 X10^3/uL; Basophil% 0.5 % (0-1); Calcium,Total 8.6 mg/dL (8.5-10.1); Chloride 104 mmol/L (98-107); Creatinine, Serum 0.71 mg/dL (0.55-1.02); EST Glomerular Filtration Rate 86 mL/min (>60); Eosinophil# 0.19 X10^3/uL; Eosinophils% 3.1 % (0-5); Est Glom Filt Rate - Afr Amer 104 mL/min (>60); Estimated Creatinine Clearance 64.01 ml/min; Glucose 86 mg/dL (74-106); Hematocrit 38.4 % (37-47); Hemoglobin 12.6 g/dl (12.0-15.0); Lymphocyte # 1.77 X10^3/ul (4.0); Lymphocyte % 28.7 % (19-41); Mean Corp Hgb Conc 32.8 g/gl (32-36); Mean Corpuscular Hgb 32.3 pg (27.0-32.0); Mean Corpuscular Volume 98.5 fL (81-99); Mean Platelet Vol. 10.2 fl (6.2-12.0); Monocyte# 0.82 X10^3/uL; Monocyte% 13.3 % (0-10); Neutrophil # 3.34 X10^3/uL (2.7-7.7); Neutrophil % 54.1 % (47-70); Platelet Count 281 K/mm3 (150-450); Potassium 4.4 mmol/L (3.5-5.1); RBC Distribution Width SD 45.2 fl (35.1-43.9); Sodium Level 141 mmol/L (136-145); White Blood Count 6.2 K/mm3 (4.4-11.0)
[2017-08-26 06:37] LABS: POSITIVE COUNT NO; POSITIVE DIFFERENTIAL NO; POSITIVE MORPHOLOGY NO
[2017-08-26] MEDS: Folic Acid 1 MG Tablet 0.5 MG PO (08:01)
[2017-08-26] MEDS: Cyanocobalamin 500 MCG Tablet PO (08:02)
[2017-08-26] MEDS: Pyridoxine HCl 50 MG Tablet PO (08:02)
[2017-08-26] MEDS: Glucerna Shake 120 ML LIQUID PO ×3 (09:48→20:25)
[2017-08-26] MEDS: Tuberculin,Purif.prot.deriv. 50 TU/ML Vial 5 ML ID (11:55)
--- NOTE | 2017-08-26 12:36 | CASEMGMT ---
Insurance Clinical information sent. Pending continued stay approval at this time. Auth#[id number] Camilla TORO, PILING SETTER
[2017-08-26 15:25] VITALS: BP 122/69; PULSE 69; RESP 18; TEMP 36.2; O2SAT 99
[2017-08-26 17:21] VITALS: PULSE 69
--- NOTE | 2017-08-26 17:58 | NURSING ---
PT HAS BEEN TAKING PRN TYLENOL FOR NUMBNESS/TINGING IN HANDS/LEGS/FEET. DR GREER NOTIFIED, NEW ORDER FOR AMITRIPTYLINE. DR GREER SPOKE WITH PT.
[2017-08-26] MEDS: Magnesium Oxide 400 MG Tablet 600 MG PO (20:25)
[2017-08-26] MEDS: Tolterodine Tartrate 2 MG CAP.SA PO (20:25)
[2017-08-26] MEDS: Nortriptyline 10 MG Capsule PO (20:37)
[2017-08-27] MEDS: Acetaminophen 325 MG Tablet 650 MG PO ×3 (03:06→17:18)
[2017-08-27 06:26] VITALS: BP 131/83; PULSE 61
[2017-08-27] MEDS: Vitamin B Comp W-C Capsule 1 CAP PO (06:26)
[2017-08-27] MEDS: Enoxaparin 40 MG/0.4 ML Syringe SC (06:26)
[2017-08-27] MEDS: Metoprolol(XL)Succ 50 MG Tablet PO ×2 (06:26→17:03)
[2017-08-27] MEDS: Nystatin Powder 15gm Bottle 1 APPLIC TOPICAL ×2 (06:28→20:36)
[2017-08-27] MEDS: Cyanocobalamin 500 MCG Tablet PO (07:36)
[2017-08-27] MEDS: Pyridoxine HCl 50 MG Tablet PO (07:36)
[2017-08-27] MEDS: Folic Acid 1 MG Tablet 0.5 MG PO (07:36)
[2017-08-27] MEDS: Glucerna Shake 120 ML LIQUID PO ×3 (09:01→20:31)
--- NOTE | 2017-08-27 09:41 | CASEMGMT ---
Insurance Continued stay denied with last cover day being 08/29/17 and resident to discharge or financial responsibility to begin on 08/30/17. Auth#[id number] Camilla TORO, SALES REPRESENTATIVE ADDING MACHINES
--- NOTE | 2017-08-27 11:03 | CASEMGMT ---
Plan of care meeting held. Resident present as well as resident sisters. This social media campaign manager communicating to resident and resident family that continued stay has been denied with a last cover day of 08/29/17 and resident to discharge or financial responsibility to begin on 08/30/17. Resident is not agreeable to discharge date, educated on appeal process. Resident planning to initiate appeal. In the event that appeal is lost, Resident plans to discharge home where resident sister will be staying with resident. Therapy is recommending for resident to have continued therapy services through outpatient physical therapy, resident is agreeable if resident is in fact discharging this weekend. Resident requesting for outpatient physical therapy to be set up through [facility]. Resident aware that order will be faxed to [facility] and then [facility] will contact resident to set up appointment. Support given. Proposed discharge date: 08/30/17 pending appeal PLAN: Discharge home where sister lives with resident, resident sister is not able to provide 24hr care for resident (this all pending appeal) Camilla TORO, BUCKET TURNER
[2017-08-27 15:52] VITALS: BP 146/85; PULSE 59; RESP 18; TEMP 36.6; O2SAT 96
[2017-08-27 17:03] VITALS: BP 146/85; PULSE 59
[2017-08-27 19:58] VITALS: PULSE 72; RESP 18; O2SAT 97
[2017-08-27 20:19] VITALS: BP 123/66; TEMP 36.2
[2017-08-27] MEDS: Magnesium Oxide 400 MG Tablet 600 MG PO (20:29)
[2017-08-27] MEDS: Nortriptyline 10 MG Capsule PO (20:29)
[2017-08-27] MEDS: Tolterodine Tartrate 2 MG CAP.SA PO (20:31)
--- NOTE | 2017-08-27 21:00 | PCM.DC ---
- Discharge Diagnoses Current Active Problems: Current Active and Chronic Problems (Last Updated 07/02/17 @ 14:42 by Eulalia Torres) Encephalopathy (Acute) Stroke (Chronic) Constipation (Chronic) You will use the following diet at home:: No restrictions, Regular Your food should be the consistency of: Regular Your liquids should be the consistency of: Regular/Thin Discharge Activity: Return to Normal Activity, May Shower, Use Walker Weight Bearing Status: Weight bearing as tolerated Call your doctor if you observe: Fever of 101 or Higher, Inability to urinate, Inability to have a bowel movement, Shortness of breath, Chest pain, Uncontrolled pain Allergies/Adverse Reactions: Allergies lisinopril Allergy (Verified 08/11/17 21:35) Angioedema amlodipine [From Norvasc] Adverse Reaction (Severe, Verified 08/11/17 21:35) Freezes up limbs nifedipine [From Nifedical XL] Adverse Reaction (Severe, Verified 08/11/17 21:35) Freezes up limbs alendronate sodium [From Fosamax] Adverse Reaction (Intermediate, Verified 08/11/17 21:35) GI upset codeine Adverse Reaction (Verified 08/11/17 21:35) Unknown ibuprofen Adverse Reaction (Verified 08/11/17 21:35) Other HCTA Adverse Reaction (Intermediate, Uncoded 08/11/17 21:35) Low sodium LIPITOR Adverse Reaction (Uncoded 08/11/17 21:35) Unknown Medications to take at Discharge Cholecalciferol (VIT D3) [Vitamin D3] 5,000 unit PO DAILY 05/22/14 Vitamin B Complex 1 ea PO DAILY 05/22/14 Lactulose [Chronulac] 20 gm PO DAILY PRN 07/15/16 magnesium 250 mg tablet 750 mg PO QHS tab 06/16/17 folic acid-vit B6-vit B12 0.5 mg-5 mg-0.2 mg tablet 1 tab PO QDAY 07/02/17 vitamin A palmitate 10,000 unit capsule 10,000 unit PO QDAY ea 07/02/17 Acetaminophen [Tylenol Tablet] 650 mg PO Q4H PRN PRN tablet 08/18/17 Metoprolol(XL)Succ [Toprol Xl (Beta Berenice)] 50 mg PO BID #60 tab 08/27/17 Nortriptyline HCl [Pamelor] 10 mg PO QHS #30 cap 08/27/17 Nystatin Powder [Mycostatin Powder] 1 applic TOPICAL 0600,2200 bottle 08/27/17 Tolterodine Tartrate [Detrol LA] 2 mg PO QHS cap.sa 08/27/17 The following prescriptions were given: Nortriptyline HCl [Pamelor] 10 mg PO QHS #30 cap Metoprolol(XL)Succ [Toprol Xl (Beta Berenice)] 50 mg PO BID #60 tab Primary Care Physician: Michael Snowden Chi, MD [COURTESY STAFF PHYSICIAN] - Please follow up with your Primary Care Physician in: 1 week. Proposed Discharge Date: 08/30/17
--- NOTE | 2017-08-27 21:04 | DCINST_ITS ---
- Discharge Diagnoses Current Active Problems: Current Active and Chronic Problems (Last Updated 07/02/17 @ 14:42 by Eulalia Torres) Encephalopathy (Acute) Stroke (Chronic) Constipation (Chronic) You will use the following diet at home:: No restrictions, Regular Your food should be the consistency of: Regular Your liquids should be the consistency of: Regular/Thin Discharge Activity: Return to Normal Activity, May Shower, Use Walker Weight Bearing Status: Weight bearing as tolerated Call your doctor if you observe: Fever of 101 or Higher, Inability to urinate, Inability to have a bowel movement, Shortness of breath, Chest pain, Uncontrolled pain Allergies/Adverse Reactions: Allergies lisinopril Allergy (Verified 08/11/17 21:35) Angioedema amlodipine [From Norvasc] Adverse Reaction (Severe, Verified 08/11/17 21:35) Freezes up limbs nifedipine [From Nifedical XL] Adverse Reaction (Severe, Verified 08/11/17 21:35 ) Freezes up limbs alendronate sodium [From Fosamax] Adverse Reaction (Intermediate, Verified 08/11 21:35) GI upset codeine Adverse Reaction (Verified 08/11/17 21:35) Unknown ibuprofen Adverse Reaction (Verified 08/11/17 21:35) Other HCTA Adverse Reaction (Intermediate, Uncoded 08/11/17 21:35) Low sodium LIPITOR Adverse Reaction (Uncoded 08/11/17 21:35) Unknown Medications to take at Discharge Cholecalciferol (VIT D3) [Vitamin D3] 5,000 unit PO DAILY 05/22/14 Vitamin B Complex 1 ea PO DAILY 05/22/14 Lactulose [Chronulac] 20 gm PO DAILY PRN 07/15/16 magnesium 250 mg tablet 750 mg PO QHS tab 06/16/17 folic acid-vit B6-vit B12 0.5 mg-5 mg-0.2 mg tablet 1 tab PO QDAY 07/02/17 vitamin A palmitate 10,000 unit capsule 10,000 unit PO QDAY ea 07/02/17 Acetaminophen [Tylenol Tablet] 650 mg PO Q4H PRN PRN tablet 08/18/17 Metoprolol(XL)Succ [Toprol Xl (Beta Berenice)] 50 mg PO BID #60 tab 08/27/17 Nortriptyline HCl [Pamelor] 10 mg PO QHS #30 cap 08/27/17 Nystatin Powder [Mycostatin Powder] 1 applic TOPICAL 0600,2200 bottle 08/27/17 Tolterodine Tartrate [Detrol LA] 2 mg PO QHS cap.sa 08/27/17 The following prescriptions were given: Nortriptyline HCl [Pamelor] 10 mg PO QHS #30 cap Metoprolol(XL)Succ [Toprol Xl (Beta Berenice)] 50 mg PO BID #60 tab Primary Care Physician: Michael Snowden Chi, MD [COURTESY STAFF PHYSICIAN] - Please follow up with your Primary Care Physician in: 1 week. Proposed Discharge Date: 08/30/17
--- NOTE | 2017-08-27 21:06 | DS.PCM_ITS ---
Discharge Date and Diagnosis - Problem List Patient Problems: Active and Suspected Problems (Last Updated 07/02/17 @ 14:42 by Eulalia Torres) Encephalopathy (Acute) Date of Admission: 08/18/17 Date of Discharge: 08/30/17 - Primary Discharge Diagnosis Active and Suspected Problems (Last Updated 07/02/17 @ 14:42 by Eulalia Torres) Encephalopathy (Acute) - Secondary Discharge Diagnosis Chronic Problems (Last Updated 07/02/17 @ 14:42 by Eulalia Torres) Anxiety (Chronic) Osteoarthritis (Chronic) Stroke (Chronic) Constipation (Chronic) BMI 40.0-44.9, adult (Chronic) Gastroparesis (Chronic) Myelopathy (Chronic) Spinal cord lesion (Chronic) Low back pain (Chronic) Myalgia and myositis (Chronic) Malaise and fatigue (Chronic) Supraventricular tachycardia (Chronic) Palpitations (Chronic) Subsequent non-ST elevation (NSTEMI) myocardial infarction (Chronic) 02/16/15 Aortic stenosis (Chronic) Hypertension (Chronic) Sarcoidosis (Chronic) Obesity (BMI 30-39.9) (Chronic) Malabsorption (Chronic) Hospital Course and Treatment Imaging Results: 08/18/17 16:31 Diet: Regular Diet Is pt able to select menu?: Yes Labs (Last 48 Hours) 08/26/17 08/26/17 05:10 05:10 WBC 6.2 RBC 3.90 L Hgb 12.6 Hct 38.4 MCV 98.5 MCH 32.3 H MCHC 32.8 RDW 13.0 RDW Differential 45.2 H Plt Count 281 MPV 10.2 Immature Gran % (Auto) 0.300 Neut % (Auto) 54.1 Lymph % (Auto) 28.7 [place] % (Auto) 13.3 H Eos % (Auto) 3.1 Baso % (Auto) 0.5 Absolute Neuts (auto) 3.3 Absolute Lymphs (auto) 1.77 Total Counted Not Reportable Sodium 141 Potassium 4.4 Chloride 104 Carbon Dioxide 29.0 Anion Gap 8 BUN 22 H Creatinine 0.71 Estim Creat Clear Calc 64.01 Est GFR (MDRD) Af Amer 104 Est GFR (MDRD) Non-Af 86 BUN/Creatinine Ratio 30.9 H Glucose 86 Calcium 8.6 Operations: None Procedures: None Summary of Care Provided: The patient is a 71 year old Female with below past medical history hospitalized for Debility secondary to fall, complicated by persistent encephalopathy, admitted to TCU for rehabilitation, strengthening, prior to discharge home with sister. Discharge home where sister lives with resident, resident sister unable to provide 24 hour care for resident, outpatient physical therapy at [facility]. Discharge Diet: No Restrictions Discharge Activity: Return to Normal Activity, May Shower, Use Walker Weight Bearing Status: Weight bearing as tolerated Call your doctor if you observe: Fever of 101 or Higher, Inability to urinate, Inability to have a bowel movement, Shortness of breath, Chest pain, Uncontrolled pain Home Medications: Medications to take at Discharge Cholecalciferol (VIT D3) [Vitamin D3] 5,000 unit PO DAILY 05/22/14 Vitamin B Complex 1 ea PO DAILY 05/22/14 Lactulose [Chronulac] 20 gm PO DAILY PRN 07/15/16 magnesium 250 mg tablet 750 mg PO QHS tab 06/16/17 folic acid-vit B6-vit B12 0.5 mg-5 mg-0.2 mg tablet 1 tab PO QDAY 07/02/17 vitamin A palmitate 10,000 unit capsule 10,000 unit PO QDAY ea 07/02/17 Acetaminophen [Tylenol Tablet] 650 mg PO Q4H PRN PRN tablet 08/18/17 Metoprolol(XL)Succ [Toprol Xl (Beta Berenice)] 50 mg PO BID #60 tab 08/27/17 Nortriptyline HCl [Pamelor] 10 mg PO QHS #30 cap 08/27/17 Nystatin Powder [Mycostatin Powder] 1 applic TOPICAL 0600,2200 bottle 08/27/17 Tolterodine Tartrate [Detrol LA] 2 mg PO QHS cap.sa 08/27/17 Following Prescrptions Were Given to Patient: Nortriptyline HCl [Pamelor] 10 mg PO QHS #30 cap Metoprolol(XL)Succ [Toprol Xl (Beta Berenice)] 50 mg PO BID #60 tab Primary Care Physician: Michael Snowden Chi, MD [COURTESY STAFF PHYSICIAN] - Please follow up with your Primary Care Physician in: 1 week. Disposition: Home Minutes spent on discharge:: 30 Patient Condition:: Stable Medical Necessity - Tobacco Use Smoking Status: Never smoker Tobacco Use: Non-smoker Meaningful Use Info Meaningful Use Diagnoses (Choose all that apply): None applicable
[2017-08-28] MEDS: Vitamin B Comp W-C Capsule 1 CAP PO (06:00)
[2017-08-28 06:01] VITALS: BP 146/75; PULSE 98
[2017-08-28] MEDS: Metoprolol(XL)Succ 50 MG Tablet PO ×2 (06:01→17:14)
[2017-08-28] MEDS: Nystatin Powder 15gm Bottle 1 APPLIC TOPICAL ×2 (06:05→20:32)
[2017-08-28] MEDS: Enoxaparin 40 MG/0.4 ML Syringe SC (06:06)
[2017-08-28] MEDS: Acetaminophen 325 MG Tablet 650 MG PO ×2 (06:13→14:02)
[2017-08-28] MEDS: Pyridoxine HCl 50 MG Tablet PO (08:31)
[2017-08-28] MEDS: Folic Acid 1 MG Tablet 0.5 MG PO (08:31)
[2017-08-28] MEDS: Cyanocobalamin 500 MCG Tablet PO (08:31)
[2017-08-28] MEDS: Glucerna Shake 120 ML LIQUID PO ×3 (08:35→20:26)
[2017-08-28 16:00] VITALS: BP 156/86; PULSE 62; RESP 16; TEMP 36.6; O2SAT 93
--- NOTE | 2017-08-28 16:24 | NURSING ---
Resident complains of Pamelor making her feel anxious. Dr Snowden aware and orders to d/C medication.
--- NOTE | 2017-08-28 16:41 | CASEMGMT ---
Social Work Telephone call from [facility], resident lost appeal. Spoke with resident and resident sister, Anny. This social work assistant communicating above information. Resident voicing understanding and planning to discharge home where Anny will be staying with resident on 08/30/17. Resident reporting to need a walker at time of discharge, [facility] to be utilized due to resident insurance, resident is agreeable. Resident requesting for outpatient physical therapy to be set up through [facility]. Resident sister to provide transportation home for resident at time of discharge. Support given. Order for outpatient physical therapy faxed to [facility]. Order for walker faxed to [facility]. [facility] to deliver walker to resident room prior to resident discharge. Proposed discharge date:08/30/17 PLAN: Discharge home where resident sister is staying with resident. Anny is not able to provide 24hr care. Camilla TORO, CAMP RECREATION SPECIALIST
[2017-08-28 17:14] VITALS: BP 156/86; PULSE 62
[2017-08-28] MEDS: Tolterodine Tartrate 2 MG CAP.SA PO (20:26)
[2017-08-28] MEDS: Magnesium Oxide 400 MG Tablet 600 MG PO (20:29)
[2017-08-29] MEDS: Enoxaparin 40 MG/0.4 ML Syringe SC (05:33)
[2017-08-29 05:34] VITALS: BP 136/79; PULSE 61
[2017-08-29] MEDS: Vitamin B Comp W-C Capsule 1 CAP PO (05:34)
[2017-08-29] MEDS: Metoprolol(XL)Succ 50 MG Tablet PO ×2 (05:34→17:18)
[2017-08-29] MEDS: Nystatin Powder 15gm Bottle 1 APPLIC TOPICAL ×2 (05:39→21:58)
[2017-08-29] MEDS: Folic Acid 1 MG Tablet 0.5 MG PO (08:06)
[2017-08-29] MEDS: Cyanocobalamin 500 MCG Tablet PO (08:07)
[2017-08-29] MEDS: Acetaminophen 325 MG Tablet 650 MG PO ×3 (08:07→18:06)
[2017-08-29] MEDS: Pyridoxine HCl 50 MG Tablet PO (08:07)
[2017-08-29] MEDS: Glucerna Shake 120 ML LIQUID PO ×3 (09:53→21:54)
--- NOTE | 2017-08-29 10:17 | MDS.RN ---
Information for the mds was obtained from review of the clinical record, interview of resident, staff, and direct observation of resident's care.
[2017-08-29 16:00] VITALS: BP 128/70; PULSE 62; RESP 18; TEMP 36.7; O2SAT 94
[2017-08-29 17:18] VITALS: BP 128/70; PULSE 62
[2017-08-29] MEDS: Tolterodine Tartrate 2 MG CAP.SA PO (21:54)
[2017-08-29] MEDS: Magnesium Oxide 400 MG Tablet 600 MG PO (21:54)
[2017-08-30] MEDS: Acetaminophen 325 MG Tablet 650 MG PO ×2 (06:32→13:43)
[2017-08-30] MEDS: Vitamin B Comp W-C Capsule 1 CAP PO (06:33)
[2017-08-30] MEDS: Enoxaparin 40 MG/0.4 ML Syringe SC (06:33)
[2017-08-30 06:34] VITALS: BP 147/86; PULSE 66
[2017-08-30] MEDS: Metoprolol(XL)Succ 50 MG Tablet PO (06:34)
[2017-08-30] MEDS: Nystatin Powder 15gm Bottle 1 APPLIC TOPICAL (06:37)
[2017-08-30] MEDS: Cyanocobalamin 500 MCG Tablet PO (08:24)
[2017-08-30] MEDS: Pyridoxine HCl 50 MG Tablet PO (08:24)
[2017-08-30] MEDS: Folic Acid 1 MG Tablet 0.5 MG PO (08:24)
[2017-08-30] MEDS: Glucerna Shake 120 ML LIQUID PO ×2 (09:53→13:44)
[2017-08-30 10:15] VITALS: BP 121/86; PULSE 78; RESP 20; TEMP 36.9; O2SAT 93
[2017-08-30 16:00] VITALS: BP 110/72; PULSE 61; RESP 18; TEMP 36.8; O2SAT 94
== END 2017-08-30 17:00 | disposition home or self-care (01) | DRG 947 ==
PROVIDERS: Admitting Provider Family Medicine Geriatric Medicine; Family Provider Family Medicine Geriatric Medicine; PCP Family Medicine Geriatric Medicine; Visit Provider Family Medicine Geriatric Medicine
DX: R53.81 Other malaise (principal); G93.49 Other encephalopathy; I10 Essential (primary) hypertension; E55.9 Vitamin D deficiency, unspecified; M54.5 Low back pain; G89.29 Other chronic pain; M19.90 Unspecified osteoarthritis, unspecified site; K59.09 Other constipation; E66.9 Obesity, unspecified; G62.9 Polyneuropathy, unspecified; Z91.81 History of falling; Z86.73 Personal history of transient ischemic attack (TIA), and cerebral infarction without residual deficits; Z79.899 Other long term (current) drug therapy; Z68.35 Body mass index [BMI] 35.0-35.9, adult; Z71.3 Dietary counseling and surveillance; I25.2 Old myocardial infarction
CPT/HCPCS: 36415; 80048; 81001; 85025; 87086; 97110; 97116; 97162; 97166; 97530; 97535; 97802

== ENCOUNTER → 2017-09-10 14:51 | Outpatient (CLI) | payer MEDICARE, SELFPAY ==
[2017-09-10 16:09] LABS: Absolute Lymphocyte Count 1.26 X10^3/ul (0.83-4.51); Absolute Neutrophil Count 3.2 X10^3/uL (2.0-7.7); Basophil# 0.03 X10^3/uL; Basophil% 0.6 % (0-1); Eosinophil# 0.11 X10^3/uL; Eosinophils% 2.2 % (0-5); Hematocrit 40.9 % (37-47); Hemoglobin 13.3 g/dl (12.0-15.0); Lymphocyte # 1.26 X10^3/ul (4.0); Lymphocyte % 25.5 % (19-41); Mean Corp Hgb Conc 32.5 g/gl (32-36); Mean Corpuscular Hgb 31.5 pg (27.0-32.0); Mean Corpuscular Volume 96.9 fL (81-99); Monocyte# 0.36 X10^3/uL; Monocyte% 7.3 % (0-10); Neutrophil # 3.18 X10^3/uL (2.7-7.7); Neutrophil % 64.2 % (47-70); Platelet Count 201 K/mm3 (150-450); RBC Distribution Width CV 13.2 % (11.6-14.6); RBC Distribution Width SD 45.6 fl (35.1-43.9); Red Blood Count 4.22 M/mm3 (4.2-5.4)
[2017-09-10 16:12] LABS: POSITIVE COUNT NO; POSITIVE DIFFERENTIAL NO; POSITIVE MORPHOLOGY NO
[2017-09-10 17:02] LABS: ALB/GLOB Ratio 0.9 RATIO (0.9-2.4); AST(SGOT) 21 U/L (15-37); Alanine Aminotransfer ALT/SGPT 27 U/L (13-56); Albumin, Serum 3.7 g/dL (3.2-5.0); Alkaline Phosphatase 69 U/L (45-117); Anion Gap 5 (5-15); BUN 15 mg/dL (7-18); BUN/Creat Ratio 20.6 RATIO (10-20); Chloride 104 mmol/L (98-107); Creatinine, Serum 0.73 mg/dL (0.55-1.02); EST Glomerular Filtration Rate 84 mL/min (>60); Est Glom Filt Rate - Afr Amer 101 mL/min (>60); Globulin 4.2 g/dL (2.2-4.2); Glucose 91 mg/dL (74-106); Potassium 3.9 mmol/L (3.5-5.1); Protein, Total 7.9 g/dL (6.4-8.2); Sodium Level 139 mmol/L (136-145); Thyroid Stim Hormone (TSH) 0.68 uIU/mL (0.358-3.74)
[2017-09-12 07:13] LABS: Hep C Antibodies 0.1 s/co ratio (0.0-0.9)
== END ==
PROVIDERS: Family Provider Family Medicine Geriatric Medicine; PCP Family Medicine Geriatric Medicine; Visit Provider Family Medicine Geriatric Medicine
DX: E55.9 Vitamin D deficiency, unspecified (principal); I10 Essential (primary) hypertension; Z13.89 Encounter for screening for other disorder
CPT/HCPCS: 36415; 80053; 82306; 84443; 85025; 86803

== ENCOUNTER → 2017-10-02 13:27 | Outpatient (CLI) | payer MEDICARE, SELFPAY ==
--- NOTE | 2017-10-03 08:40 | PFT ---
INTRODUCTION: The patient is a 71-year-old female who presents for pulmonary function testing secondary to a diagnosis of sarcoidosis. Respiratory therapy reports good patient effort. Bronchodilators were used during testing. INTERPRETATION: Forced expiration spirometry was stressed the presence of a moderate large airways obstructive ventilatory defect. There was no significant response to aerosolized bronchodilators. Body plethysmography was performed and reveals lung volumes to be within normal limits. Diffusing capacity by single breath CO is moderately reduced at 47% of predicted. IMPRESSION: These pulmonary function studies demonstrate the presence of an irreversible moderate large airways obstructive ventilatory defect with a symmetric reduction in diffusing capacity. There are no previous pulmonary function studies available for comparison.
== END ==
PROVIDERS: Family Provider Family Medicine Geriatric Medicine; PCP Family Medicine Geriatric Medicine; Visit Provider Internal Medicine Critical Care Medicine
DX: D86.9 Sarcoidosis, unspecified (principal)
CPT/HCPCS: 94060; 94726; 94729

== ENCOUNTER → 2017-12-15 14:09 | Outpatient (CLI) | payer MEDICARE, SELFPAY ==
[2017-12-15 17:27] LABS: Absolute Lymphocyte Count 1.11 X10^3/ul (0.83-4.51); Absolute Neutrophil Count 3.6 X10^3/uL (2.0-7.7); Basophil# 0.03 X10^3/uL; Basophil% 0.6 % (0-1); Eosinophil# 0.15 X10^3/uL; Eosinophils% 2.8 % (0-5); Hematocrit 40.3 % (37-47); Lymphocyte # 1.11 X10^3/ul (4.0); Lymphocyte % 20.6 % (19-41); Mean Corp Hgb Conc 32.3 g/gl (32-36); Mean Corpuscular Hgb 31.6 pg (27.0-32.0); Mean Corpuscular Volume 97.8 fL (81-99); Monocyte# 0.48 X10^3/uL; Monocyte% 8.9 % (0-10); Neutrophil % 66.9 % (47-70); POSITIVE COUNT NO; POSITIVE DIFFERENTIAL NO; POSITIVE MORPHOLOGY NO; Platelet Count 218 K/mm3 (150-450); RBC Distribution Width CV 13.3 % (11.6-14.6); RBC Distribution Width SD 46.6 fl (35.1-43.9); Red Blood Count 4.12 M/mm3 (4.2-5.4); White Blood Count 5.4 K/mm3 (4.4-11.0)
[2017-12-15 17:42] LABS: ALB/GLOB Ratio 0.8 RATIO (0.9-2.4); AST(SGOT) 20 U/L (15-37); Alanine Aminotransfer ALT/SGPT 28 U/L (13-56); Albumin, Serum 3.6 g/dL (3.2-5.0); Alkaline Phosphatase 75 U/L (45-117); Anion Gap 10 (5-15); BUN 24 mg/dL (7-18); Calcium,Total 8.9 mg/dL (8.5-10.1); Chloride 101 mmol/L (98-107); Cholesterol 169 mg/dL (200); EST Glomerular Filtration Rate 87 mL/min (>60); Est Glom Filt Rate - Afr Amer 105 mL/min (>60); Globulin 4.3 g/dL (2.2-4.2); Glucose 90 mg/dL (74-106); High Density Lipoprotein 59 mg/dL; Potassium 4.6 mmol/L (3.5-5.1); Protein, Total 7.9 g/dL (6.4-8.2); Sodium Level 140 mmol/L (136-145); Triglycerides 67 mg/dL; Very Low Density Lipoprotein 13 mg/dL (5-40)
== END ==
PROVIDERS: Family Provider Family Medicine Geriatric Medicine; PCP Family Medicine Geriatric Medicine; Visit Provider Family Medicine Geriatric Medicine
DX: I10 Essential (primary) hypertension (principal); E78.4 Other hyperlipidemia; E55.9 Vitamin D deficiency, unspecified
CPT/HCPCS: 36415; 80053; 80061; 82306; 84443; 85025

== ENCOUNTER 2018-03-03 13:00 | Outpatient (RCR) | payer MEDICARE, SELFPAY ==
--- NOTE | 2017-09-09 13:27 | HP.PTEVAL ---
Patient's Visit Information JUWAN DAVIES is a 71 year old F referred to Physical Therapy by Michael Snowden with a diagnosis of GENERALIZED WEAKNESS. Date of Evaluation: 09/09/17 Physical Therapist: Koffi Reynolds, PT, - Visit Plan Frequency: 2x /Week Duration: 4 Weeks Plan: Add increased balance component - Subjective Subjective: This 71 y/o female presents to physical therapy with generalized weakness. This patient was admitted to [facility] on 08/11/17 with dehydration ,diarrhea and vomiting. When patient became medically stable transferred to TCU for Rehab for 2weeks. Patient was d/c to to home 08/30/17 ,no [facility] PT. Patient prior level of function ambulates with fww and Mod Independant with transfers and ADL'S. Bed moblity independant but difficult. Patient sister stays with patient currently and assisits with ADL'S. DME: elevated toilet seat ,shower bench ,cane fww.HOME SITUATION: cond with one step . Patient has impairemnts with ADL'S endurance,gait ,endurance. SOCAIL: single - Pain neck Pain Intensity (Out of 10): 0 - Objective GAIT: 100' with 2WW Mod I, mild forward posture, shuffle steps, slow hasmukh. TRANSFERS: Mod I with 2WW, VC's for AD placement. Mod I with bed mobility tasks. STRENGTH: Gross B UE 4/5, R ankle DF 3+/5. B Hip abd 3/5. SENSATION: Diminished L2,L3 dermatome to light touch, otherwise WNLs. BALANCE: Fair. FLEXIBILITY: Mod tight. ENDURANCE: Poor - Goals Goal 1:: Pt will be independent with HEP to sustain gains made in therapy. Goal Time Frame: 4-6 Weeks Goal 2:: Pt will ambulate with 2WW modified independent for community distances and improve gait pattern. Goal Time Frame: 4-6 Weeks Goal 3:: Pt will improve dynamic balance to fair + with 2WW. Goal Time Frame: 4-6 Weeks Goal 4:: Pt to increase strength of B LE's to 4/5 to improve functional transfer independence. Goal Time Frame: 4-6 Weeks Goal 5:: Pt will be able to return to ADLs and houseowork with minimal limitation. Goal Time Frame: 4-6 Weeks - Rehabilitation Potential Physical Therapy Diagnosis: Pt is a 71 y/o female with multiple co-morbities and recent hospitalization. She was admitted to hospital with dehydration on 08/11/2017 and discharged from transitional care on 08/30/2017. She had two weeks of inpatient care therapy and no home health therapy. She presents to the evaluation with a decreased functional mobility, endurance, balance, and strength. She has activity limitations that include decreased ambulation distance, standing tolerance, and independence with ADLs. This limits her participation with community ambulation. Pt will benefit from skilled care to address the mentioned impairments to maximize functional potential. Rehabilitation Potential: Good - Anticipated Interventions Patient/Client Instruction: Educate patient on: Condition, Plan of Care For the Purpose of:: To decrease pain, To increase ROM, To increase tolerance to activity/condition/position, To improve ability of physical actions for home/community/work/leisure, To improve gait and locomotor functions, To improve safety with gait, To assume or resume ADL's, To improve safety, To improve ability to perform tasks related to life management Therapeutic Exercise to Include: Strength training, Endurance training, Balance training, Flexibilty training, Gait and locomotor training For the Purpose of:: To decrease pain, To increase ROM, To improve muscle performance and motor function, To improve ability to perform ADL's, To increase tolerance to activity/condition/position, To improve performance and independence with ADL's, To decrease level of supervision to perform tasks, To improve ability of physical actions for home/community/work/leisure, To improve gait and locomotor functions, To improve endurance, To improve balance, To improve safety with gait, To assume or resume ADL's, To improve self management, To improve ability to perform tasks related to life management Functional electric stimulation: Yes TENS: Yes IF ES: Yes Other electric stimulation: Yes Cryotherapy (ice pack, ice massage): Yes Thermo therapy (hot pack): Yes Ultrasound (thermal/non thermal): Yes For the Purpose of:: To decrease pain, To increase ROM, To improve muscle performance and motor function, To increase tolerance to activity/condition/position, To improve performance and independence with ADL's, To improve ability of physical actions for home/community/work/leisure, To improve endurance, To improve balance, To assume or resume ADL's, To improve ability to perform tasks related to life management Thank you for the opportunity to evaluate your patient. For Medicare and Medicare HMO plans, please review the plan of care and approve it. It will need to be FAXED BACK to us at [phone] for Medicare purposes. Please let me know if there are questions or concerns regarding this plan of care. Physician Signature: Date:
--- NOTE | 2017-09-09 13:37 | HP.PTEVAL ---
Patient's Visit Information JUWAN DAVIES is a 71 year old F referred to Physical Therapy by Michael Snowden with a diagnosis of GENERALIZED WEAKNESS. Date of Evaluation: 09/05/17 Physical Therapist: Koffi Reynolds, PT, - Visit Plan Frequency: 2x /Week Duration: 4 Weeks Plan: Add increased balance component - Subjective Subjective: This 71 y/o female presents to physical therapy with generalized weakness. This patient was admitted to [facility] on 08/11/17 with dehydration ,diarrhea and vomiting. When patient became medically stable transferred to TCU for Rehab for 2weeks. Patient was d/c to to home 08/30/17 ,no [facility] PT. Patient prior level of function ambulates with fww and Mod Independant with transfers and ADL'S. Bed moblity independant but difficult. Patient sister stays with patient currently and assisits with ADL'S. DME: elevated toilet seat ,shower bench ,cane fww.HOME SITUATION: cond with one step . Patient has impairemnts with ADL'S endurance,gait ,endurance. SOCAIL: single - Pain neck Pain Intensity (Out of 10): 0 - Objective GAIT: 100' with 2WW Mod I, mild forward posture, shuffle steps, slow hasmukh. TRANSFERS: Mod I with 2WW, VC's for AD placement. Mod I with bed mobility tasks. STRENGTH: Gross B UE 4/5, R ankle DF 3+/5. B Hip abd 3/5. SENSATION: Diminished L2,L3 dermatome to light touch, otherwise WNLs. BALANCE: Fair. FLEXIBILITY: Mod tight. ENDURANCE: Poor - Goals Goal 1:: Pt will be independent with HEP to sustain gains made in therapy. Goal Time Frame: 4-6 Weeks Goal 2:: Pt will ambulate with 2WW modified independent for community distances and improve gait pattern. Goal Time Frame: 4-6 Weeks Goal 3:: Pt will improve dynamic balance to fair + with 2WW. Goal Time Frame: 4-6 Weeks Goal 4:: Pt to increase strength of B LE's to 4/5 to improve functional transfer independence. Goal Time Frame: 4-6 Weeks Goal 5:: Pt will be able to return to ADLs and houseowork with minimal limitation. Goal Time Frame: 4-6 Weeks - Rehabilitation Potential Physical Therapy Diagnosis: Pt is a 71 y/o female with multiple co-morbities and recent hospitalization. She was admitted to hospital with dehydration on 08/11/2017 and discharged from transitional care on 08/30/2017. She had two weeks of inpatient care therapy and no home health therapy. She presents to the evaluation with a decreased functional mobility, endurance, balance, and strength. She has activity limitations that include decreased ambulation distance, standing tolerance, and independence with ADLs. This limits her participation with community ambulation. Pt will benefit from skilled care to address the mentioned impairments to maximize functional potential. Rehabilitation Potential: Good - Anticipated Interventions Patient/Client Instruction: Educate patient on: Condition, Plan of Care For the Purpose of:: To decrease pain, To increase ROM, To increase tolerance to activity/condition/position, To improve ability of physical actions for home/community/work/leisure, To improve gait and locomotor functions, To improve safety with gait, To assume or resume ADL's, To improve safety, To improve ability to perform tasks related to life management Therapeutic Exercise to Include: Strength training, Endurance training, Balance training, Flexibilty training, Gait and locomotor training For the Purpose of:: To decrease pain, To increase ROM, To improve muscle performance and motor function, To improve ability to perform ADL's, To increase tolerance to activity/condition/position, To improve performance and independence with ADL's, To decrease level of supervision to perform tasks, To improve ability of physical actions for home/community/work/leisure, To improve gait and locomotor functions, To improve endurance, To improve balance, To improve safety with gait, To assume or resume ADL's, To improve self management, To improve ability to perform tasks related to life management Functional electric stimulation: Yes TENS: Yes IF ES: Yes Other electric stimulation: Yes Cryotherapy (ice pack, ice massage): Yes Thermo therapy (hot pack): Yes Ultrasound (thermal/non thermal): Yes For the Purpose of:: To decrease pain, To increase ROM, To improve muscle performance and motor function, To increase tolerance to activity/condition/position, To improve performance and independence with ADL's, To improve ability of physical actions for home/community/work/leisure, To improve endurance, To improve balance, To assume or resume ADL's, To improve ability to perform tasks related to life management Thank you for the opportunity to evaluate your patient. For Medicare and Medicare HMO plans, please review the plan of care and approve it. It will need to be FAXED BACK to us at [phone] for Medicare purposes. Please let me know if there are questions or concerns regarding this plan of care. Physician Signature: Date:
--- NOTE | 2017-10-07 14:55 | HP.PTREVAL_ITS ---
Michael Snowden, It has been my pleasure to treat JUWAN DAVIES over the last 10 visits for GENERALIZED WEAKNESS. Please see the progress note below for an update on the physical therapy plan of care! Subjective: Pt reports that she has made improvements in her strength, endurance , and function since starting physical therapy. Her family member notes that the pt's hasmukh and ambulation distance are improved. She completes some of her HEP but not as much that was directed. Objective/Function: Pt appears to be making progress since starting PT. She has met 3/5 PT goals. Her B LE strength is improved to 4/5 grade. Her balance is fair + using a 2 wheeled walker. Her endurance and independence with ADLs are still impaired. She will benefit from continued therapy to address these deficits to maximize functional potential. Plan Plan: Continue x2/week for 4 more weeks to increase global strength, balance, and endurance. Goals Goal 1:: Pt will be independent with HEP to sustain gains made in therapy. Goal Time Frame: 4-6 Weeks Goal Progress: Progressing Goal 2:: Pt will ambulate with 2WW modified independent for community distances and improve gait pattern. Goal Time Frame: 4-6 Weeks Goal Progress: Goal Met Goal 3:: Pt will improve dynamic balance to fair + with 2WW. Goal Time Frame: 4-6 Weeks Goal Progress: Goal Met Goal 4:: Pt to increase strength of B LE's to 4/5 to improve functional transfer independence. Goal Time Frame: 4-6 Weeks Goal Progress: Goal Met Goal 5:: Pt will be able to return to ADLs and houseowork with minimal limitation. Goal Time Frame: 4-6 Weeks Goal Progress: Progressing Anticipated Interventions Patient/Client Instruction: Educate patient on: Condition, Plan of Care For the Purpose of:: To decrease pain, To increase ROM, To increase tolerance to activity/condition/position, To improve ability of physical actions for home/ community/work/leisure, To improve gait and locomotor functions, To improve safety with gait, To assume or resume ADL's, To improve safety, To improve ability to perform tasks related to life management Therapeutic Exercise to Include: Strength training, Endurance training, Balance training, Flexibilty training, Gait and locomotor training For the Purpose of:: To decrease pain, To increase ROM, To improve muscle performance and motor function, To improve ability to perform ADL's, To increase tolerance to activity/condition/position, To improve performance and independence with ADL's, To decrease level of supervision to perform tasks, To improve ability of physical actions for home/community/work/leisure, To improve gait and locomotor functions, To improve endurance, To improve balance, To improve safety with gait, To assume or resume ADL's, To improve self management , To improve ability to perform tasks related to life management Functional electric stimulation: Yes TENS: Yes IF ES: Yes Other electric stimulation: Yes Cryotherapy (ice pack, ice massage): Yes Thermo therapy (hot pack): Yes Ultrasound (thermal/non thermal): Yes For the Purpose of:: To decrease pain, To increase ROM, To improve muscle performance and motor function, To increase tolerance to activity/condition/ position, To improve performance and independence with ADL's, To improve ability of physical actions for home/community/work/leisure, To improve endurance, To improve balance, To assume or resume ADL's, To improve ability to perform tasks related to life management Please do not hesitate to contact me at [phone] by phone or Fax: if you have questions or concerns regarding this new plan of care! Sincerely, Koffi Reynolds PT,
--- NOTE | 2017-11-03 14:01 | HP.PTREVAL_ITS ---
Michael Chi Sp, It has been my pleasure to treat JUWAN DAVIES over the last 18 visits for GENERALIZED WEAKNESS. Please see the progress note below for an update on the physical therapy plan of care! Subjective: Patient reports still having difficuly with weakness in legs along with edema in legs.My balance conts to be impaired. legs feel heavy. Patient improved ADL'S bathing and dressing. Objective/Function: POSTURE: mild foward posture,hip/knees flexed. EDEMA: 1+ pitted edema. NEURO: c/o parathesia feet /hands,light touch intact. GAIT: ambulates with fww mild foward posture hips/knee slightly flexed slow hasmukh. MMT: quads/hams 4-/5,hip flexion/abd 3+/5 ankle 4/5. BALANCE: fair with fww Plan Plan: cont with POC 2x/ for weeks 4weeks Goals Goal 1:: Pt will be independent with HEP to sustain gains made in therapy. Goal Time Frame: 4-6 Weeks Goal Progress: Progressing Goal 2:: Pt will ambulate with 2WW modified independent for community distances and improve gait pattern. Goal Time Frame: 4-6 Weeks Goal Progress: Goal Met Goal 3:: Pt will improve dynamic balance to fair + with 2WW. Goal Time Frame: 4-6 Weeks Goal Progress: Goal Met Goal 4:: Pt to increase strength of B LE's to 4/5 to improve functional transfer independence. Goal Time Frame: 4-6 Weeks Goal Progress: Goal Met Goal 5:: Pt will be able to return to ADLs and houseowork with minimal limitation. Goal Time Frame: 4-6 Weeks Goal Progress: Progressing Anticipated Interventions Patient/Client Instruction: Educate patient on: Condition, Plan of Care For the Purpose of:: To decrease pain, To increase ROM, To increase tolerance to activity/condition/position, To improve ability of physical actions for home/ community/work/leisure, To improve gait and locomotor functions, To improve safety with gait, To assume or resume ADL's, To improve safety, To improve ability to perform tasks related to life management Therapeutic Exercise to Include: Strength training, Endurance training, Balance training, Flexibilty training, Gait and locomotor training For the Purpose of:: To decrease pain, To increase ROM, To improve muscle performance and motor function, To improve ability to perform ADL's, To increase tolerance to activity/condition/position, To improve performance and independence with ADL's, To decrease level of supervision to perform tasks, To improve ability of physical actions for home/community/work/leisure, To improve gait and locomotor functions, To improve endurance, To improve balance, To improve safety with gait, To assume or resume ADL's, To improve self management , To improve ability to perform tasks related to life management Functional electric stimulation: Yes TENS: Yes IF ES: Yes Other electric stimulation: Yes Cryotherapy (ice pack, ice massage): Yes Thermo therapy (hot pack): Yes Ultrasound (thermal/non thermal): Yes For the Purpose of:: To decrease pain, To increase ROM, To improve muscle performance and motor function, To increase tolerance to activity/condition/ position, To improve performance and independence with ADL's, To improve ability of physical actions for home/community/work/leisure, To improve endurance, To improve balance, To assume or resume ADL's, To improve ability to perform tasks related to life management Please do not hesitate to contact me at [phone] by phone or Fax: if you have questions or concerns regarding this new plan of care! Sincerely, Koffi Reynolds, PT,
--- NOTE | 2017-12-11 14:33 | HP.PTREVAL_ITS ---
Michael Snowden, It has been my pleasure to treat JUWAN DAVIES over the last 29 visits for GENERALIZED WEAKNESS. Please see the progress note below for an update on the physical therapy plan of care! Subjective: Patient shayy PT is helpling getting stronger for ADL'S. Able to ambulate with fww to PT from parking lot. Trying to be more active with ADL' S. Machines are helping Objective/Function: POSTURE: mild foward posture hip/knees slightly flexed. GAIT: ambulates with mild foward posture slow cadance reciprocal pattern 150 feet. MMT: quads/hams 4/5,hip flexion 4-/5,ankle 4/5,hip abd 3+/5. FLEXABLITY : hams min tight ,pirifomis mod tight. BALANCE: fair+ wth fww Plan Plan: cont with poc interventions 2xweek for 4weeks Goals Goal 1:: Pt will be independent with HEP to sustain gains made in therapy. Goal Time Frame: 4-6 Weeks Goal Progress: Progressing Goal 2:: Pt will ambulate with 2WW modified independent for community distances and improve gait pattern. Goal Time Frame: 4-6 Weeks Goal Progress: Goal Met Goal 3:: Pt will improve dynamic balance to fair + with 2WW. Goal Time Frame: 4-6 Weeks Goal Progress: Goal Met Goal 4:: Pt to increase strength of B LE's to 4/5 to improve functional transfer independence. Goal Time Frame: 4-6 Weeks Goal Progress: Goal Met Goal 5:: Pt will be able to return to ADLs and houseowork with minimal limitation. Goal Time Frame: 4-6 Weeks Goal Progress: Progressing Goal 6:: Patient ascend/desend 4steps with rail with SBA Anticipated Interventions Patient/Client Instruction: Educate patient on: Condition, Plan of Care For the Purpose of:: To decrease pain, To increase ROM, To increase tolerance to activity/condition/position, To improve ability of physical actions for home/ community/work/leisure, To improve gait and locomotor functions, To improve safety with gait, To assume or resume ADL's, To improve safety, To improve ability to perform tasks related to life management Therapeutic Exercise to Include: Strength training, Endurance training, Balance training, Flexibilty training, Gait and locomotor training For the Purpose of:: To decrease pain, To increase ROM, To improve muscle performance and motor function, To improve ability to perform ADL's, To increase tolerance to activity/condition/position, To improve performance and independence with ADL's, To decrease level of supervision to perform tasks, To improve ability of physical actions for home/community/work/leisure, To improve gait and locomotor functions, To improve endurance, To improve balance, To improve safety with gait, To assume or resume ADL's, To improve self management , To improve ability to perform tasks related to life management Functional electric stimulation: Yes TENS: Yes IF ES: Yes Other electric stimulation: Yes Cryotherapy (ice pack, ice massage): Yes Thermo therapy (hot pack): Yes Ultrasound (thermal/non thermal): Yes For the Purpose of:: To decrease pain, To increase ROM, To improve muscle performance and motor function, To increase tolerance to activity/condition/ position, To improve performance and independence with ADL's, To improve ability of physical actions for home/community/work/leisure, To improve endurance, To improve balance, To assume or resume ADL's, To improve ability to perform tasks related to life management Please do not hesitate to contact me at [phone] by phone or Fax: if you have questions or concerns regarding this new plan of care! Sincerely, Koffi Reynolds PT,
--- NOTE | 2018-01-20 14:12 | HP.PTREVAL ---
Michael Snowden, It has been my pleasure to treat JUWAN DAVIES over the last 37 visits for GENERALIZED WEAKNESS. Please see the progress note below for an update on the physical therapy plan of care! Subjective: Patient has been falling asleep ,thus fell out of chair twice. Since falling Out of chair somewhat regressed with function and gait. Plan to see chiropractor. Plan to see sleep apnea DR Objective/Function: POSTURE:mild foward posture hips/knees flexed. GAIT: mild foward posture slow hasmukh hips/knee flexed. decrease hasmukh. EDEMA: 1+ lower legs. BALANCE: fair with fww. Patient has declined in funcyion since fall with apin and endurance Plan Plan: Cont with POC 2XWEEK FOR WEEKS WITH PT NTERVENTIONS Goals Goal 1:: Pt will be independent with HEP to sustain gains made in therapy. Goal Time Frame: 4-6 Weeks Goal Progress: Progressing Goal 2:: Pt will ambulate with 2WW modified independent for community distances and improve gait pattern. Goal Time Frame: 4-6 Weeks Goal Progress: Goal Met Goal 3:: Pt will improve dynamic balance to fair + with 2WW. Goal Time Frame: 4-6 Weeks Goal Progress: Goal Met Goal 4:: Pt to increase strength of B LE's to 4/5 to improve functional transfer independence. Goal Time Frame: 4-6 Weeks Goal Progress: Goal Met Goal 5:: Pt will be able to return to ADLs and houseowork with minimal limitation. Goal Time Frame: 4-6 Weeks Goal Progress: Progressing Goal 6:: Patient ascend/desend 4steps with rail with SBA Anticipated Interventions Patient/Client Instruction: Educate patient on: Condition, Plan of Care For the Purpose of:: To decrease pain, To increase ROM, To increase tolerance to activity/condition/position, To improve ability of physical actions for home/community/work/leisure, To improve gait and locomotor functions, To improve safety with gait, To assume or resume ADL's, To improve safety, To improve ability to perform tasks related to life management Therapeutic Exercise to Include: Strength training, Endurance training, Balance training, Flexibilty training, Gait and locomotor training For the Purpose of:: To decrease pain, To increase ROM, To improve muscle performance and motor function, To improve ability to perform ADL's, To increase tolerance to activity/condition/position, To improve performance and independence with ADL's, To decrease level of supervision to perform tasks, To improve ability of physical actions for home/community/work/leisure, To improve gait and locomotor functions, To improve endurance, To improve balance, To improve safety with gait, To assume or resume ADL's, To improve self management, To improve ability to perform tasks related to life management Functional electric stimulation: Yes TENS: Yes IF ES: Yes Other electric stimulation: Yes Cryotherapy (ice pack, ice massage): Yes Thermo therapy (hot pack): Yes Ultrasound (thermal/non thermal): Yes For the Purpose of:: To decrease pain, To increase ROM, To improve muscle performance and motor function, To increase tolerance to activity/condition/position, To improve performance and independence with ADL's, To improve ability of physical actions for home/community/work/leisure, To improve endurance, To improve balance, To assume or resume ADL's, To improve ability to perform tasks related to life management Please do not hesitate to contact me at [phone] by phone or if you have questions or concerns regarding this new plan of care! Sincerely, Koffi Reynolds, PT,
--- NOTE | 2018-03-03 16:15 | HP.PTDCSUM ---
HP - PT D/C Summary It has been my pleasure to treat JUWAN DAVIES under orders from Michael Snowden, for the diagnosis of GENERALIZED WEAKNESS for a total of 45 visit(s). Discharge Date: 03/03/18 Please see the following information for a summary of their discharge status. - Subjective Subjective: Doing okay .. Able to walk better. Discussed with emerald youngblood - Pain neck Pain Intensity (Out of 10): 0 LB Pain Intensity (Out of 10): 3 - Overall Improvement % Improvement: 70 - Objective Objective/Function: POSTURE: mild foward posture. GAIT: ambulated with slow cadnece mild foward posture. BALANCE: fair+ with fww. MMT: quads/hams 4/5,hip flexion 4-5/ - Goals Goal 1:: Pt will be independent with HEP to sustain gains made in therapy. Goal Progress: Progressing Goal 2:: Pt will ambulate with 2WW modified independent for community distances and improve gait pattern. Goal Progress: Goal Met Goal 3:: Pt will improve dynamic balance to fair + with 2WW. Goal Progress: Goal Met Goal 4:: Pt to increase strength of B LE's to 4/5 to improve functional transfer independence. Goal Progress: Goal Met Goal 5:: Pt will be able to return to ADLs and houseowork with minimal limitation. Goal Progress: Progressing Goal 6:: Patient ascend/desend 4steps with rail with SBA - Plan Plan: d/c - D/C Information Discharge Comments: HEP AND EMERALD YOUNGBLOOD If there are questions or concerns regarding this patient's physical therapy, please feel free to call me at [phone]. Thank you for the referral of this patient. Sincerely, Koffi Reynolds, PT,
== END 2018-03-03 19:00 | disposition home or self-care (01) ==
LOC: PT 13:00
PROVIDERS: Family Provider Family Medicine Geriatric Medicine; PCP Family Medicine Geriatric Medicine; Visit Provider Family Medicine Geriatric Medicine
DX: R26.2 Difficulty in walking, not elsewhere classified (principal); R53.1 Weakness
CPT/HCPCS: 97110; 97116; 97162; 97530; G8978; G8979

== ENCOUNTER → 2018-03-17 15:05 | Outpatient (CLI) | payer MEDICARE, SELFPAY ==
[2018-01-23 14:20] VITALS: BMI 38.2
[2018-03-17 16:58] LABS: Absolute Lymphocyte Count 1.16 X10^3/ul (0.83-4.51); Absolute Neutrophil Count 3.7 X10^3/uL (2.0-7.7); Basophil# 0.03 X10^3/uL; Basophil% 0.5 % (0-1); Eosinophil# 0.19 X10^3/uL; Eosinophils% 3.4 % (0-5); Hematocrit 41.9 % (37-47); Hemoglobin 13.3 g/dl (12.0-15.0); Lymphocyte # 1.16 X10^3/ul (4.0); Lymphocyte % 20.8 % (19-41); Mean Corp Hgb Conc 31.7 g/gl (32-36); Mean Corpuscular Hgb 31.2 pg (27.0-32.0); Mean Corpuscular Volume 98.4 fL (81-99); Mean Platelet Vol. 10.4 fl (6.2-12.0); Monocyte# 0.45 X10^3/uL; Monocyte% 8.1 % (0-10); Neutrophil # 3.74 X10^3/uL (2.7-7.7); Platelet Count 216 K/mm3 (150-450); RBC Distribution Width CV 12.8 % (11.6-14.6); RBC Distribution Width SD 45.3 fl (35.1-43.9); Red Blood Count 4.26 M/mm3 (4.2-5.4); White Blood Count 5.6 K/mm3 (4.4-11.0)
[2018-03-17 17:03] LABS: POSITIVE COUNT NO; POSITIVE DIFFERENTIAL NO; POSITIVE MORPHOLOGY NO
[2018-03-17 17:19] LABS: ALB/GLOB Ratio 0.9 RATIO (0.9-2.4); AST(SGOT) 20 U/L (15-37); Alanine Aminotransfer ALT/SGPT 26 U/L (13-56); Albumin, Serum 3.7 g/dL (3.2-5.0); Alkaline Phosphatase 76 U/L (45-117); Anion Gap 7 (5-15); BUN 17 mg/dL (7-18); BUN/Creat Ratio 27.1 RATIO (10-20); Calcium,Total 8.7 mg/dL (8.5-10.1); Chloride 105 mmol/L (98-107); Cholesterol 163 mg/dL (200); Creatinine, Serum 0.63 mg/dL (0.55-1.02); EST Glomerular Filtration Rate 99 mL/min (>60); Est Glom Filt Rate - Afr Amer 120 mL/min (>60); Globulin 4.1 g/dL (2.2-4.2); Glucose 80 mg/dL (74-106); High Density Lipoprotein 57 mg/dL; Potassium 3.5 mmol/L (3.5-5.1); Protein, Total 7.8 g/dL (6.4-8.2); Sodium Level 139 mmol/L (136-145); Thyroid Stim Hormone (TSH) 1.16 uIU/mL (0.358-3.74); Triglycerides 107 mg/dL; Very Low Density Lipoprotein 21 mg/dL (5-40)
[2018-03-17 17:34] LABS: Vitamin D,25 Hydroxy 57.8 ng/mL (29.95-100.01)
--- OUTSIDE RECORDS SUMMARY | 2018-06-19 03:28 | XMS RPT_ITS ---
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 RATIO High BUN/CRE 20.6 LAB L501.1500 6.4-8.2 g/dL T Normal PROT 7.9 LAB L501.1800 3.2-5.0 g/dL Normal ALB 3.7 LAB L501.1950 2.2-4.2 g/dL Normal GLOB 4.2 LAB L501.2000 0.9-2.4 RATIO Normal A/G 0.9 LAB L501.2200 8.5-10.1 mg/dL CA Normal 9.0 LAB L501.4100 15-37 U/L Normal AST 21 LAB L501.4305 45-117 U/L Normal ALK P 69 LAB L501.4405 13-56 U/L Normal ALT 27 LAB L501.4600 0.20-1.00 mg/dL T Normal BILI 0.50 LAB L501.5300 136-145 mmol/L NA Normal 139 LAB L501.5600 3.5-5.1 mmol/L K Normal 3.9 LAB L501.5900 98-107 mmol/L CL Normal 104 LAB L501.6100 21.0-32.0 mmol/L Normal CO2 30.0 LAB L501.6200 5-15 Normal GAP 5 Performed By: #### L500.4050, L501.9520 #### [facility] [address] [place], [address] THYROID STIM HORMONE Collected: 09/10/2017 Status: F Source: [place] ([facility]) 2:51 PM [facility] REPOSITORY TYPE CODE TESTS RESULT OUT OF RANGE REFERENCE UNITS LAB L501.9520 0.358-3.74 uIU/mL Normal TSH 0.68 Performed By: #### L500.4050, L501.9520 #### [facility] [address] [place], [address] HEPATITIS C ANTIBODIES Collected: 09/10/2017 Status: F Source: [place] 2:51 PM [facility] REPOSITORY TYPE CODE TESTS RESULT OUT OF RANGE REFERENCE UNITS LAB L3100.0650 0.0-0.9 s/co ratio Normal HEP C AB 0.1 Result Comment: Negative: < 0.8 Indeterminate: 0.8 - 0.9 Positive: > 0.9 The CDC recommends that a positive HCV antibody result be followed up with a HCV Nucleic Acid Amplification test (954614). Performed at: - [facility] [id number] Feltmaker: Olivier Jenkins PhD, Phone: [phone] Performed By: #### L3100.0625 #### [facility] (refer to report for specific site) refer to report for address and phone number INITAL EVALUATION (1) Observed: 09/10/2017 Status: F Source: [place] - PT 11:22 AM [facility] REPOSITORY [facility] Physical Therapy [facility] [address] [place] [address]. [address] [place] [address] Fax REHABILITATION SERVICES INITIAL EVALUATION MR#: [id number] Acct: [id number] Name: LIZETTE PRICE Rep #: [id number] : 1945 71 From: Koffi Reynolds PT, Cert. MDT, OCS Referring Dr.: Michael Snowden MD Status: REG RCR Insurance: [employer] MED[employer]ARE PPO SELF PAY INSURANCE Patient's Visit Information LIZETTE PRICE is a 71 year old F referred to Physical Therapy by Michael Snowden with a diagnosis of GENERALIZED WEAKNESS. Date of Evaluation: 09/05/17 Physical Therapist: Koffi Reynolds PT, - Visit Plan Frequency: 2x /Week Duration: 4 Weeks Plan: Add increased balance component - Subjective Subjective: This 71 y/o female presents to physical therapy with generalized weakness. This patient was admitted to [facility] on 08/11/17 with dehydration ,diarrhea and vomiting. When patient became medically stable transferred to TCU for Rehab for 2weeks. Patient was d/c to to home 08/30/17 ,no [facility] PT. Patient prior level of function ambulates with fww and Mod Independant with transfers and ADL'S. Bed moblity independant but difficult. Patient sister stays with patient currently and assisits with ADL'S. DME: elevated toilet seat ,shower bench ,cane fww.HOME SITUATION: cond with one step . Patient has impairemnts with ADL'S endurance,gait ,endurance. SOCAIL: single - Pain neck Pain Intensity (Out of 10): 0 - Objective GAIT: 100' with 2WW Mod I, mild forward posture, shuffle steps, slow hasmukh. TRANSFERS: Mod I with 2WW, VC's for AD placement. Mod I with bed mobility tasks. STRENGTH: Gross B UE 4/5, R ankle DF 3+/5. B Hip abd 3/5. SENSATION: Diminished L2,L3 dermatome to light touch, otherwise WNLs. BALANCE: Fair. FLEXIBILITY: Mod tight. ENDURANCE: Poor - Goals Goal 1:: Pt will be independent with HEP to sustain gains made in therapy. Goal Time Frame: 4-6 Weeks Goal 2:: Pt will ambulate with 2WW modified independent for community distances and improve gait pattern. Goal Time Frame: 4-6 Weeks Goal 3:: Pt will improve dynamic balance to fair + with 2WW. Goal Time Frame: 4-6 Weeks Goal 4:: Pt to increase strength of B LE's to 4/5 to improve functional transfer independence. Goal Time Frame: 4-6 Weeks Goal 5:: Pt will be able to return to ADLs and houseowork with minimal limitation. Goal Time Frame: 4-6 Weeks - Rehabilitation Potential Physical Therapy Diagnosis: Pt is a 71 y/o female with multiple co-morbities and recent hospitalization. She was admitted to hospital with dehydration on 08/11/2017 and discharged from transitional care on 08/30/2017. She had two weeks of inpatient care therapy and no home health therapy. She presents to the evaluation with a decreased functional mobility, endurance, balance, and strength. She has activity limitations that include decreased ambulation distance, standing tolerance, and independence with ADLs. This limits her participation with community ambulation. Pt will benefit from skilled care to address the mentioned impairments to maximize functional potential. Rehabilitation Potential: Good - Anticipated Interventions Patient/Client Instruction: Educate patient on: Condition, Plan of Care For the Purpose of:: To decrease pain, To increase ROM, To increase tolerance to activity/condition/position, To improve ability of physical actions for home/community/work/leisure, To improve gait and locomotor functions, To improve safety with gait, To assume or resume ADL's, To improve safety, To improve ability to perform tasks related to life management Therapeutic Exercise to Include: Strength training, Endurance training, Balance training, Flexibilty training, Gait and locomotor training For the Purpose of:: To decrease pain, To increase ROM, To improve muscle performance and motor function, To improve ability to perform ADL's, To increase tolerance to activity/condition/position, To improve performance and independence with ADL's, To decrease level of supervision to perform tasks, To improve ability of physical actions for home/community/work/leisure, To improve gait and locomotor functions, To improve endurance, To improve balance, To improve safety with gait, To assume or resume ADL's, To improve self management, To improve ability to perform tasks related to life management Functional electric stimulation: Yes TENS: Yes IF ES: Yes Other electric stimulation: Yes Cryotherapy (ice pack, ice massage): Yes Thermo therapy (hot pack): Yes Ultrasound (thermal/non thermal): Yes For the Purpose of:: To decrease pain, To increase ROM, To improve muscle performance and motor function, To increase tolerance to activity/condition/position, To improve performance and independence with ADL's, To improve ability of physical actions for home/community/work/leisure, To improve endurance, To improve balance, To assume or resume ADL's, To improve ability to perform tasks related to life management Thank you for the opportunity to evaluate your patient. For Medicare and Medicare HMO plans, please review the plan of care and approve it. It will need to be FAXED BACK to us at [phone] for Medicare purposes. Please let me know if there are questions or concerns regarding this plan of care. Physician Signature: Date: <Electronically signed by Koffi Reynolds PT, Cert. T, OCS> 09/10/17 1122 CC: Michael Snowden MD CAROLYN Signed For Medicare only, by signing this I certify the plan of care. Physicians Signature Date PROGRESS Observed: 09/05/2017 Status: COMPLETED Source: [place] 1:32 PM [facility] [place] REPOSITORY HNO ID: [id number] Author: Rosario Zabala Cma Service: (none) Author Type: (none) Type: Progress Notes Filed: 09/05/2017 1:39 PM Note Text: I called and spoke with Lizette to see how she's doing and offer a follow up appointment with Dr. Ramirez. She states she's doing well, but states she's changing physicians and she'll be seeing Dr. Snowden as her primary care physician. She thanks Dr. Ramirez for her great care/service. PCP changed in system and upcoming appointment with James canceled per patient request. PROGRESS Observed: 09/05/2017 Status: COMPLETED Source: [place] 9:50 AM [facility] REPOSITORY HNO ID: [id number] Author: Rosario Zabala Cma Service: (none) Author Type: (none) Type: Progress Notes Filed: 09/05/2017 1:39 PM Note Text: TRANSITION CARE MANAGEMENT (TCM) DISCHARGE FROM POST ACUTE FACILITY POST ACUTE TRANSFER SUMMARY: - Spoke to: Caregiver, Amanda. - Pt discharged Home on 08/30/2017 from TCU Discharged with outpatient Physical therapy. Currently living with her sister. PROGRESS Observed: 09/05/2017 Status: COMPLETED Source: [place] 9:41 AM [facility] REPOSITORY HNO ID: [id number] Author: Rosario Zabala Cma Service: (none) Author Type: (none) Type: Progress Notes Filed: 09/05/2017 9:46 AM Note Text: Patient was discharged on 08/30/17 due to insurance. She is home with her sister and is doing outpatient physical therapy. PROGRESS Observed: 09/05/2017 Status: COMPLETED Source: [place] 9:35 AM [facility] REPOSITORY HNO ID: [id number] Author: Rosario Zabala Cma Service: (none) Author Type: (none) Type: Progress Notes Filed: 09/05/2017 9:46 AM Note Text: TRANSITION CARE MANAGEMENT (TCM) DISCHARGE TO POST ACUTE FACILITY POST ACUTE TRANSFER SUMMARY: -Pt discharged from [facility] on 08/18/2017. -Post Acute Facility Admitted to TCU -Admitted for: Debility secondary to fall, complicated by persistent encephalopathy. Admitted to TCU for rehabilitation, strengthening, prior to discharge home with sister. JULIA Observed: 09/05/2017 Status: COMPLETED Source: [place] 12:00 AM [facility] REPOSITORY Patient Outreach (INTMWS) LIZETTE PRICE ([id number]) 1945 F Date Time Provider Department 09/05/17 LOVE GOTTLIEB (RN) INTMWS During your visit today, we recorded the following information about you: Rosario Zabala Cma 09/05/2017 9:46 AM Signed TRANSITION CARE MANAGEMENT (TCM) DISCHARGE TO POST ACUTE FACILITY POST ACUTE TRANSFER SUMMARY: -Pt discharged from [facility] on 08/18/2017. -Post Acute Facility Admitted to TCU -Admitted for: Debility secondary to fall, complicated by persistent encephalopathy. Admitted to TCU for rehabilitation, strengthening, prior to discharge home with sister. Rosario Vj [facility] 09/05/2017 9:46 AM Signed Patient was discharged on 08/30/17 due to insurance. She is home with her sister and is doing outpatient physical therapy. Allergies As of Date: 09/05/2017 Noted Allergy Reaction LISINOPRIL 01/23/2012 7 - Swelling 10 - Anaphylaxis Comments: Face, mouth, and tongue. CODEINE 11/01/2008 5 - Intolerance Comments: Headache FOSAMAX (ALENDRONATE) 04/19/2014 14 - Other: See Comments Comments: GI upset IBUPROFEN 03/08/2005 8 - GI Upset Comments: Epigastric pain. In higher dose. LIPITOR (ATORVASTATIN) 07/05/2015 5 - Intolerance Comments: complained of weakness of legs Date Reviewed: 05/13/2017 Reviewed by: Shannon Richard - Fully Assessed Reason for Visit: Transition Of Care [4074] Prescriptions as of 09/05/2017 Sig: METOPROLOL SUCCINATE ER 25 MG* Take 1 tablet by mouth twice * CHOLECALCIFEROL (VITAMIN D3) * Take 5,000 Units by mouth onc* COMPOUNDED PRESCRIPTION [facility] [employer] defense* OTC NUTRITIONAL SUPPLEMENT zypan supplement COMPOUNDED PRESCRIPTION Home Health cataract lens generator, ai* ACETAMINOPHEN 500 MG TABLET Take 1 tablet by mouth every * MAGNESIUM 250 MG TABLET Take 1,000 mg by mouth. * MULTIVITAMIN TABLET Take one(1) tablet daily. Problem List As Of Date 09/05/2017 Noted Resolved Essential hypertension [I10] INVALID FOR* Malaise and fatigue [R53.81, R53.83] INVALID FOR* Other and unspecified hyperlipidemia [E78.5] INVALID FOR*07/30/2012 INT HEMORRHOID W/O COMPL [K64.8] INVALID FOR* Unspecified constipation [K59.00] INVALID FOR*02/19/2012 GASTROINTEST HEMORR NOS [K92.2] INVALID FOR* MYALGIA AND MYOSITIS NOS [ZDC9177] INVALID FOR* CONGENITAL PES PLANUS [Q66.50] INVALID FOR* Tibialis Tendinitis [M76.829] INVALID FOR* Generalized Osteoarthrosis, Unspecified Site [M*INVALID FOR* Contact Dermatitis and Other Eczema, due to Uns*INVALID FOR* Morbid obesity with BMI of 40.0-44.9, adult (HC* 01/25/2016 Low back pain [M54.5] INVALID FOR* Numbness and tingling in hands [R20.0, R20.2] INVALID FOR* Spinal cord lesion (HCC) [G95.9] INVALID FOR* Neck pain [M54.2] INVALID FOR* Gait instability [R26.81] INVALID FOR* Myelopathy (HCC) [G95.9] INVALID FOR* Closed spondylolysis fracture of lumbar vertebr*INVALID FOR* Spondylolisthesis, grade 3 [M43.19] INVALID FOR* Abnormality of gait [R26.9] INVALID FOR* Muscle weakness (generalized) [M62.81] INVALID FOR* Angioedema [T78.3XXA] INVALID FOR* More... Special screening for malignant neoplasms, colo*INVALID FOR* Gastroparesis [K31.84] More... Ischial bursitis of right side [M70.71] INVALID FOR* Gastric ulcer without hemorrhage or perforation*INVALID FOR*05/11/2015 Sarcoidosis (HCC) [D86.9] Balance problem [R26.89] INVALID FOR* Chronic cholecystitis with calculus [K80.10] INVALID FOR* Chronic right-sided low back pain with right-si*INVALID FOR* Sacroiliac pain [M53.3] INVALID FOR* Encounter Status:Closed by ROSARIO ZABALA CMA on 09/05/17 CNPTOUTREACH Observed: 09/05/2017 Status: COMPLETED Source: [place] 12:00 AM [facility] REPOSITORY Patient Outreach (INTMWS) LIZETTE PRICE ([id number]) 1945 F Date Time Provider Department 09/05/17 LOVE GOTTLIEB (ELIE) INTMWS During your visit today, we recorded the following information about you: Rosario Vj [facility] 09/05/2017 1:39 PM Signed TRANSITION CARE MANAGEMENT (TCM) DISCHARGE FROM POST ACUTE FACILITY POST ACUTE TRANSFER SUMMARY: - Spoke to: Caregiver, Amanda. - Pt discharged Home on 08/30/2017 from TCU Discharged with outpatient Physical therapy. Currently living with her sister. Rosario Vj [facility] 09/05/2017 1:39 PM Signed I called and spoke with Lizette to see how she's doing and offer a follow up appointment with Dr. Ramirez. She states she's doing well, but states she's changing physicians and she'll be seeing Dr. Snowden as her primary care physician. She thanks Dr. Ramirez for her great care/service. PCP changed in system and upcoming appointment with James canceled per patient request. Allergies As of Date: 09/05/2017 Noted Allergy Reaction LISINOPRIL 01/23/2012 7 - Swelling 10 - Anaphylaxis Comments: Face, mouth, and tongue. CODEINE 11/01/2008 5 - Intolerance Comments: Headache FOSAMAX (ALENDRONATE) 04/19/2014 14 - Other: See Comments Comments: GI upset IBUPROFEN 03/08/2005 8 - GI Upset Comments: Epigastric pain. In higher dose. LIPITOR (ATORVASTATIN) 07/05/2015 5 - Intolerance Comments: complained of weakness of legs Date Reviewed: 05/13/2017 Reviewed by: Shannon Richard - Fully Assessed Reason for Visit: Transition Of Care [4074] Prescriptions as of 09/05/2017 Sig: METOPROLOL SUCCINATE ER 25 MG* Take 1 tablet by mouth twice * CHOLECALCIFEROL (VITAMIN D3) * Take 5,000 Units by mouth onc* COMPOUNDED PRESCRIPTION [employer] microbial defense* OTC NUTRITIONAL SUPPLEMENT zypan supplement COMPOUNDED PRESCRIPTION Home Health cataract lens generator, ai* ACETAMINOPHEN 500 MG TABLET Take 1 tablet by mouth every * MAGNESIUM 250 MG TABLET Take 1,000 mg by mouth. * MULTIVITAMIN TABLET Take one(1) tablet daily. Problem List As Of Date 09/05/2017 Noted Resolved Essential hypertension [I10] INVALID FOR* Malaise and fatigue [R53.81, R53.83] INVALID FOR* Other and unspecified hyperlipidemia [E78.5] INVALID FOR*07/30/2012 INT HEMORRHOID W/O COMPL [K64.8] INVALID FOR* Unspecified constipation [K59.00] INVALID FOR*02/19/2012 GASTROINTEST HEMORR NOS [K92.2] INVALID FOR* MYALGIA AND MYOSITIS NOS [[id number]] INVALID FOR* CONGENITAL PES PLANUS [Q66.50] INVALID FOR* Tibialis Tendinitis [M76.829] INVALID FOR* Generalized Osteoarthrosis, Unspecified Site [M*INVALID FOR* Contact Dermatitis and Other Eczema, due to Uns*INVALID FOR* Morbid obesity with BMI of 40.0-44.9, adult (HC* 01/25/2016 Low back pain [M54.5] INVALID FOR* Numbness and tingling in hands [R20.0, R20.2] INVALID FOR* Spinal cord lesion (HCC) [G95.9] INVALID FOR* Neck pain [M54.2] INVALID FOR* Gait instability [R26.81] INVALID FOR* Myelopathy (HCC) [G95.9] INVALID FOR* Closed spondylolysis fracture of lumbar vertebr*INVALID FOR* Spondylolisthesis, grade 3 [M43.19] INVALID FOR* Abnormality of gait [R26.9] INVALID FOR* Muscle weakness (generalized) [M62.81] INVALID FOR* Angioedema [T78.3XXA] INVALID FOR* More... Special screening for malignant neoplasms, colo*INVALID FOR* Gastroparesis [K31.84] More... Ischial bursitis of right side [M70.71] INVALID FOR* Gastric ulcer without hemorrhage or perforation*INVALID FOR*05/11/2015 Sarcoidosis (HCC) [D86.9] Balance problem [R26.89] INVALID FOR* Chronic cholecystitis with calculus [K80.10] INVALID FOR* Chronic right-sided low back pain with right-si*INVALID FOR* Sacroiliac pain [M53.3] INVALID FOR* Encounter Status:Closed by ROSARIO ZABALA CMA on 09/05/17 HISTORY AND PHYSICAL Observed: 08/29/2017 Status: F Source: [place] EXAM 2:15 PM [facility] REPOSITORY [facility] Medical Records Department [address] [place] [address] History and Physical 08/18/172027 MR#: [id number] Acct: [id number] Name: LIZETTE PRICE Rep #: [id number] : 1945 71 From: Michael Snowden MD PCP: Michael Snowden MD, Chi Status: ADM IN Y Location: [facility] [id number] ADDENDUM by Michael Snowden MD on 08/29/17 at 1415 Code Visit Neuropathic pain - Nortriptyline 10MG at bedtime. 08/29/17 1415 <Electronically signed by Michael Snowden MD> Date Michael Snowden MD cc: Michael Snowden MD * Signed Problem List (1) Encephalopathy Status: Acute (2) Stroke Status: Chronic (3) Constipation Status: Chronic (4) Fall with injury Status: Acute Qualifiers: (5) Gastroparesis Status: Chronic (6) Myelopathy Status: Chronic (7) Low back pain Status: Chronic (8) Aortic stenosis Status: Chronic (9) Hypertension Status: Chronic Qualifiers: (10) Sarcoidosis Status: Chronic History of Present Illness Date of Admission: 08/18/17 Chief Complaint: Here for rehabilitation, strengthening, prior to discharge home with sister. The patient is a 71 year old Female with below past medical history presented to [facility] Emergency Department 08/11/2017 with fall, hip pain. 08/11/2017 CT brain chronic involutional changes of brain. 08/11/2017 EKG normal sinus rhythm, left axis deviation, anterior infarct, age undetermined. 08/11/2017 X-ray pelvis, right hip, showed arthritis, negative for fracture. 08/11/2017 Chest X-ray negative. Unable to stand, usually walks with walker. Chills, sweats x 24 hours, dry cough. Malaise, generalized weakness. Labs okay, UA negative. IV fluids, continued mild delirium. Unable to ambulate, Levaquin given. 08/11/2017 Admit to Hospital. Continue Levaquin. IV Fluids. 08/12/2017 Chest X-ray negative. Antibiotics stopped. Encephalopathy persists. 08/13/2017 PT/OT recommends SNF. Awaiting insurance approval for SNF. 08/18/2017 Admit to TCU for rehabilitation, strengthening, prior to discharge home with sister. Encephalopathy cleared at time of my interview. Past Medical History Past Medical History (Chronic Problems): Chronic Problems (Last Updated 07/02/17 @ 14:42 by Eulalia Torres) Anxiety (Chronic) Osteoarthritis (Chronic) Stroke (Chronic) Constipation (Chronic) BMI 40.0-44.9, adult (Chronic) Gastroparesis (Chronic) Myelopathy (Chronic) Spinal cord lesion (Chronic) Low back pain (Chronic) Myalgia and myositis (Chronic) Malaise and fatigue (Chronic) Supraventricular tachycardia (Chronic) Palpitations (Chronic) Subsequent non-ST elevation (NSTEMI) myocardial infarction (Chronic) 02/16/15 Aortic stenosis (Chronic) Hypertension (Chronic) Sarcoidosis (Chronic) Obesity (BMI 30-39.9) (Chronic) Malabsorption (Chronic) Allergies lisinopril Allergy (Verified 08/11/17 21:35) Angioedema amlodipine [From Norvasc] Adverse Reaction (Severe, Verified 08/11/17 21:35) Freezes up limbs nifedipine [From Nifedical XL] Adverse Reaction (Severe, Verified 08/11/17 21:35) Freezes up limbs alendronate sodium [From Fosamax] Adverse Reaction (Intermediate, Verified 08/11/17 21:35) GI upset codeine Adverse Reaction (Verified 08/11/17 21:35) Unknown ibuprofen Adverse Reaction (Verified 08/11/17 21:35) Other HCTA Adverse Reaction (Intermediate, Uncoded 08/11/17 21:35) Low sodium LIPITOR Adverse Reaction (Uncoded 08/11/17 21:35) Unknown Home Medications: Ambulatory Orders Medication Instructions Recorded Cholecalciferol (VIT D3) [Vitamin 5,000 unit PO DAILY 05/22/14 D3] Vitamin B Complex 1 ea PO DAILY 05/22/14 Lactulose [Chronulac] 20 gm PO DAILY PRN 07/15/16 Surgical History: total knee arthroplasty, tonsillectomy Psychiatric History: No pertinent psych hx PREPARER SAMPLES AND REPAIRS History: No pertinent PREPARER SAMPLES AND REPAIRS history Lives: With Family - Sister. Smoking Status: Never smoker Tobacco Use: Non-smoker Alcohol: None Drugs: None - *Family History Paternal History Items: - - AAA Maternal History Items: Heart Disease Sibling History Items: Diabetes Review of Systems Constitutional: Reports: Weakness. Denies: Chills, Fever, Weight Change HEENT: Denies: Head Aches, Sinus Congestion, Sinus Drainage Cardiovascular: Denies: Chest Pain, Palpitations Respiratory: Denies: Cough, Shortness of breath at rest, Sputum production Gastrointestinal: Denies: Abdominal Pain, Nausea, Vomiting Genitourinary: Denies: Dysuria Musculoskeletal: Denies: Joint Pain, Joint Tenderness Skin: Denies: Rash, Wounds Neurological: Denies: Numbness, Tingling, Focal weakness Psychiatric: Denies: Anxiety, Depression, Homicidal Ideations, Suicidal Ideations Hematologic/ Lymphatic: Denies: Easy Bruising, Easy Bleeding VTE Information - Inpt Only VTE Present on Admission: No VTE Mechan Device Prophylaxis: Knee High LORRIE Hose VTE Pharm Prophylaxis ordered?: Yes Patient Problems: Active and Suspected Problems (Last Updated 07/02/17 @ 14:42 by Eulalia Torres) Encephalopathy (Acute) - Physical Exam General: Alert, Oriented x3, Cooperative HEENT: Atraumatic, PERRLA, EOMI, Normocephalic Neck: Supple, No JVD, Negative Carotid Bruits Lungs: Clear to auscultation, Normal air movement Cardiovascular: Regular rate, No murmurs Abdomen: Bowel Sounds Present, Soft, Non Tender Extremities: No edema, Capillary Refill Less than 3 Seconds Skin: No rashes, No breakdown Musculoskeletal: No Tenderness to Palpation of Joints or Extremities Neurological: Cranial nerves II-XII grossly intact Psych/Mental Status: Normal Affect, Appropriate Vital Signs Temp Pulse Resp BP Pulse Ox 97.0 F L 60 16 154/77 H 96 08/18/17 16:21 08/18/17 18:15 08/18/17 16:21 08/18/17 16:21 08/18/17 16:21 Oxygen Delivery Method Room Air Weight: 77.111 kg Body Mass Index (BMI) 35.5 Finger Stick Blood Glucose 122 Assessment/Plan Active and Suspected Problems (Last Updated 07/02/17 @ 14:42 by Eulalia Torres) Encephalopathy (Acute) 71 year old female with below past medical history hospitalized for Debility secondary to fall, complicated by persistent encephalopathy, admitted to TCU for rehabilitation, strengthening, prior to discharge home with sister. * Debility - PT/OT. * Pain - Tylenol 1000MG Q8H PRN mild pain. * Bowel - Miralax 17GM daily, Lactulose 20GM daily PRN. * Pneumonia vaccination - Administer Prevnar 13 and/or Pneumovax 23 as necessary * DVT prophylaxis - Lovenox 40MG sc daily. * Vitamin D deficiency - D3 5000IU daily. * Hypomagnesemia - Mag Oxide 400MG QHS. * Hypertension - Metoprolol succinate 50MG BID. 08/18/172045 <Electronically signed by Michael Snowden MD> Date Michael Snowden MD Cosigner Signature: Date (if applicable) CC: Michael Snowden MD Signed DISCHARGE SUMMARY Observed: 08/27/2017 Status: F Source: [place] 9:06 PM [facility] RE[facility] Medical Records Department [address] [place] [address] Discharge Summary 08/27/174 MR#: [id number] Acct: [id number] Name: LIZETTE PRICE Rep #: [id number] : 1945 71 From: Michael Snowden MD PCP: Stephen Ramirez MD Status: ADM IN Location: [place] [address] Discharge Date and Diagnosis - Problem List Patient Problems: Active and Suspected Problems (Last Updated 07/02/17 @ 14:42 by Eulalia Torres) Encephalopathy (Acute) Date of Admission: 08/18/17 Date of Discharge: 08/30/17 - Primary Discharge Diagnosis Active and Suspected Problems (Last Updated 07/02/17 @ 14:42 by Eulalia Torres) Encephalopathy (Acute) - Secondary Discharge Diagnosis Chronic Problems (Last Updated 07/02/17 @ 14:42 by Eulalia Torres) Anxiety (Chronic) Osteoarthritis (Chronic) Stroke (Chronic) Constipation (Chronic) BMI 40.0-44.9, adult (Chronic) Gastroparesis (Chronic) Myelopathy (Chronic) Spinal cord lesion (Chronic) Low back pain (Chronic) Myalgia and myositis (Chronic) Malaise and fatigue (Chronic) Supraventricular tachycardia (Chronic) Palpitations (Chronic) Subsequent non-ST elevation (NSTEMI) myocardial infarction (Chronic) 02/16/15 Aortic stenosis (Chronic) Hypertension (Chronic) Sarcoidosis (Chronic) Obesity (BMI 30-39.9) (Chronic) Malabsorption (Chronic) Hospital Course and Treatment Imaging Results: 08/18/17 16:31 Diet: Regular Diet Is pt able to select menu?: Yes Labs (Last 48 Hours) WBC 6.2 RBC 3.90 L Hgb 12.6 Hct 38.4 MCV 98.5 MCH 32.3 H MCHC 32.8 Operations: None Procedures: None Summary of Care Provided: The patient is a 71 year old Female with below past medical history hospitalized for Debility secondary to fall, complicated by persistent encephalopathy, admitted to TCU for rehabilitation, strengthening, prior to discharge home with sister. Discharge home where sister lives with resident, resident sister unable to provide 24 hour care for resident, outpatient physical therapy at [facility]. Discharge Diet: No Restrictions Discharge Activity: Return to Normal Activity, May Shower, Use Walker Weight Bearing Status: Weight bearing as tolerated Call your doctor if you observe: Fever of 101 or Higher, Inability to urinate, Inability to have a bowel movement, Shortness of breath, Chest pain, Uncontrolled pain Home Medications: Medications to take at Discharge Cholecalciferol (VIT D3) [Vitamin D3] 5,000 unit PO DAILY 05/22/14 Vitamin B Complex 1 ea PO DAILY 05/22/14 Lactulose [Chronulac] 20 gm PO DAILY PRN 07/15/16 magnesium 250 mg tablet 750 mg PO QHS tab 06/16/17 folic acid-vit B6-vit B12 0.5 mg-5 mg-0.2 mg tablet 1 tab PO QDAY 07/02/17 vitamin A palmitate 10,000 unit capsule 10,000 unit PO QDAY ea 07/02/17 Acetaminophen [Tylenol Tablet] 650 mg PO Q4H PRN PRN tablet 08/18/17 Metoprolol(XL)Succ [Toprol Xl (Beta Di)] 50 mg PO BID #60 tab 08/27/17 Nortriptyline HCl [Pamelor] 10 mg PO QHS #30 cap 08/27/17 Nystatin Powder [Mycostatin Powder] 1 applic TOPICAL 0600,2200 bottle 08/27/17 Tolterodine Tartrate [Detrol LA] 2 mg PO QHS cap.sa 08/27/17 Following Prescrptions Were Given to Patient: Nortriptyline HCl [Pamelor] 10 mg PO QHS #30 cap Metoprolol(XL)Succ [Toprol Xl (Beta Di)] 50 mg PO BID #60 tab Primary Care Physician: Michael Snowden Chi, MD [COURTESY STAFF PHYSICIAN] - Please follow up with your Primary Care Physician in: 1 week. Disposition: Home Minutes spent on discharge:: 30 Patient Condition:: Stable Medical Necessity - Tobacco Use Smoking Status: Never smoker Tobacco Use: Non-smoker Meaningful Use Info Meaningful Use Diagnoses (Choose all that apply): None applicable 08/27/172105 <Electronically signed by Michael Snowden MD> Date Michael Snowden MD Cosigner Signature (if applicable): Date CC: Stephen Ramirez MD; Michael Snowden MD Signed DISCHARGE INSTRUCTION Observed: 08/27/2017 Status: F Source: [place] 9:04 PM [facility] Medical Records Department [address] [place] [address] [place] [address] Instructions for Home/Discharge Instructions 08/27/172099 MR#: [id number] Acct: [id number] Name: LIZETTE PRICE Rep #: [id number] : 1945 71 From: Michael Snowden MD PCP: Stephen Ramirez MD Status: ADM IN - Discharge Diagnoses Current Active Problems: Current Active and Chronic Problems (Last Updated 07/02/17 @ 14:42 by Eulalia Torres) Encephalopathy (Acute) Stroke (Chronic) Constipation (Chronic) You will use the following diet at home:: No restrictions, Regular Your food should be the consistency of: Regular Your liquids should be the consistency of: Regular/Thin Discharge Activity: Return to Normal Activity, May Shower, Use Walker Weight Bearing Status: Weight bearing as tolerated Call your doctor if you observe: Fever of 101 or Higher, Inability to urinate, Inability to have a bowel movement, Shortness of breath, Chest pain, Uncontrolled pain Allergies/Adverse Reactions: Allergies lisinopril Allergy (Verified 08/11/17 21:35) Angioedema amlodipine [From Norvasc] Adverse Reaction (Severe, Verified 08/11/17 21:35) Freezes up limbs nifedipine [From Nifedical XL] Adverse Reaction (Severe, Verified 08/11/17 21:35) Freezes up limbs alendronate sodium [From Fosamax] Adverse Reaction (Intermediate, Verified 08/11/17 21:35) GI upset codeine Adverse Reaction (Verified 08/11/17 21:35) Unknown ibuprofen Adverse Reaction (Verified 08/11/17 21:35) Other HCTA Adverse Reaction (Intermediate, Uncoded 08/11/17 21:35) Low sodium LIPITOR Adverse Reaction (Uncoded 08/11/17 21:35) Unknown Medications to take at Discharge Cholecalciferol (VIT D3) [Vitamin D3] 5,000 unit PO DAILY 05/22/14 Vitamin B Complex 1 ea PO DAILY 05/22/14 Lactulose [Chronulac] 20 gm PO DAILY PRN 07/15/16 magnesium 250 mg tablet 750 mg PO QHS tab 06/16/17 folic acid-vit B6-vit B12 0.5 mg-5 mg-0.2 mg tablet 1 tab PO QDAY 07/02/17 vitamin A palmitate 10,000 unit capsule 10,000 unit PO QDAY ea 07/02/17 Acetaminophen [Tylenol Tablet] 650 mg PO Q4H PRN PRN tablet 08/18/17 Metoprolol(XL)Succ [Toprol Xl (Beta Di)] 50 mg PO BID #60 tab 08/27/17 Nortriptyline HCl [Pamelor] 10 mg PO QHS #30 cap 08/27/17 Nystatin Powder [Mycostatin Powder] 1 applic TOPICAL 0600,2200 bottle 08/27/17 Tolterodine Tartrate [Detrol LA] 2 mg PO QHS cap.sa 08/27/17 The following prescriptions were given: Nortriptyline HCl [Pamelor] 10 mg PO QHS #30 cap Metoprolol(XL)Succ [Toprol Xl (Beta Di)] 50 mg PO BID #60 tab Primary Care Physician: Michael Snowden Chi, MD [COURTESY STAFF PHYSICIAN] - Please follow up with your Primary Care Physician in: 1 week. Proposed Discharge Date: 08/30/17 08/27/172103 <Electronically signed by Michael Snowden MD> Date Michael Snowden MD CC: Stephen Ramirez MD BASIC METABOLIC Collected: 08/26/2017 Status: F Source: [place] PROFILE (BMP) 5:10 AM [facility] REPOS[facility] TYPE CODE TESTS RESULT OUT OF RANGE REFERENCE UNITS LAB L501.0100 74-106 mg/dL Normal GLU 86 Result Comment: Please note revised GLUCOSE reference range effective 2017. LAB L501.1000 7-18 mg/dL High BUN 22 LAB L501.1100 0.55-1.02 mg/dL Normal CREAT,SERUM 0.71 Result Comment: The validity of the calculated GFR AND GFRAA in patients over 70 years has not been determined. Clinical correlation is essential. LAB L501.1110 >60 mL/min Normal EST GFR 86 Result Comment: Non- GFR Calc LAB L501.1115 >60 mL/min Normal EST GFR - AA 104 Result Comment: GFR Calc LAB L501.1255 ml/min Normal Estimated CRCL 64.01 LAB L501.1300 10-20 RATIO High BUN/CRE 30.9 LAB L501.2200 8.5-10 mg/dL Normal .1 CA 8.6 LAB L501.5300 136-14 mmol/L Normal 5 NA 141 LAB L501.5600 3.5-5. mmol/L Normal 1 K 4.4 LAB L501.5900 98-107 mmol/L Normal CL 104 LAB L501.6100 21.0-3 mmol/L Normal 2.0 CO2 29.0 LAB L501.6200 5-15 Normal GAP 8 Performed By: #### L500.2500 #### [facility] Laboratory [facility] [address] [facility] [place], [place], [id number] CBC W/DIFF, AUTOMATED Collected: 08/26/2017 Status: F Source: [place] 5:10 AM [facility] TYPE CODE TESTS RESULT OUT OF RANGE REFERENCE UNITS LAB L100.1000 4.4-11.0 K/mm3 Normal WBC 6.2 LAB L100.1200 4.2-5.4 M/mm3 Low RBC 3.90 LAB L100.1300 12.0-15.0 g/dl Normal HGB 12.6 LAB L100.1400 37-47 % Normal HCT 38.4 LAB L100.1500 81-99 fL Normal MCV 98.5 LAB L100.1600 27.0-32.0 pg High MCH 32.3 LAB L100.1700 32-36 g/gl Normal MCHC 32.8 LAB L100.1810 11.6-14.6 % Normal RDW CV 13.0 LAB L100.1820 35.1-43.9 fl High RDW SD 45.2 LAB L100.1900 150-450 K/mm3 Normal PLT 281 LAB L100.2000 6.2-12.0 fl Normal MPV 10.2 LAB L100.2100 47-70 % Normal NEUT% 54.1 LAB L100.2200 19-41 % Normal LY% 28.7 LAB L100.2300 0-10 % High MONO% 13.3 LAB L100.2400 0-5 % Normal EO% 3.1 LAB L100.2500 0-1 % Normal BASO% 0.5 LAB L100.2550 0.0-0.9 % Normal IM GRAN % 0.300 Result Comment: IG% - Immature Granulocytes (promyelocytes, myelocytes and metamyelocytes) > 1% indicates that a LEFT SHIFT is Present. LAB L100.2620 2.0-7.7 X10 3/uL Normal Absolute Neut 3.3 LAB L100.2720 0.83-4.51 X10 3/ul Normal Absolute Lymph 1.77 Performed By: #### L100.0100 #### [facility] Laboratory [address] [facility] [place], [address] DISCHARGE SUMMARY Observed: 08/22/2017 Status: F Source: [place] 9:32 AM [facility] Medical Records Department [address] [place] [address] Discharge Summary 08/19/171939 MR#: [id number] Acct: [id number] Name: LIZETTE PRICE Rep #: [id number] : 1945 71 From: Silvestre Moreau DO PCP: Stephen Ramirez MD Status: DIS IN Y Location: [facility]3 [id number] ADDENDUM by Silvestre Moreau DO on 08/22/17 at 0932 Code Visit Additional diagnosis: #9 Encephalopathy-etilogy unknown 08/22/17 0932 <Electronically signed by Silvestre Moreau DO> Date Silvestre Moreau DO cc: Stephen Ramirez MD; Silvestre Moreau DO * Signed Discharge Date and Diagnosis - Problem List Patient Problems: Active and Suspected Problems (Last Updated 07/02/17 @ 14:42 by Eulalia Torres) Encephalopathy (Acute) Date of Admission: 08/11/17 Date of Discharge: 08/18/17 - Primary Discharge Diagnosis Active and Suspected Problems #1 generalized debility secondary to deconditioning, osteoarthritis, and myelopathy #2 supraventricular tachycardia-paroxysmal #3 anxiety disorder #4 osteoarthritis #5 aortic stenosis #6 brief episodic confusion-etiology unclear #7 sarcoidosis #8 myelopathy-type unknown - Secondary Discharge Diagnosis Chronic Problems (Last Updated 07/02/17 @ 14:42 by Eulalia Torres) Anxiety (Chronic) Osteoarthritis (Chronic) Stroke (Chronic) Constipation (Chronic) BMI 40.0-44.9, adult (Chronic) Gastroparesis (Chronic) Myelopathy (Chronic) Spinal cord lesion (Chronic) Low back pain (Chronic) Myalgia and myositis (Chronic) Malaise and fatigue (Chronic) Supraventricular tachycardia (Chronic) Palpitations (Chronic) Subsequent non-ST elevation (NSTEMI) myocardial infarction (Chronic) 02/16/15 Aortic stenosis (Chronic) Hypertension (Chronic) Sarcoidosis (Chronic) Obesity (BMI 30-39.9) (Chronic) Malabsorption (Chronic) Hospital Course and Treatment Operations: None Procedures: None Summary of Care Provided: The patient is a 71 year old F seen in the emergency room at [facility] after sustaining a fall at home. She was brought in due to generalized weakness and mild confusion. Patient was a very poor informant, she lives at home with her sister. Workup in the emergency room included imaging studies including a CT scan of the head which is negative for acute findings, chest x-ray which was negative for acute findings, x-ray of the hip which was negative for fracture. Patient's labs were remarkable for a slightly elevated BUN at 20. Patient was unable to bear weight in the emergency room and remained mildly confused, patient was admitted to [place] [address] and briefly was placed on Levaquin for suspected infection, on my evaluation of the patient the next day, I stopped her Levaquin because I did not think she had an active infection. Patient was monitored on telemetry and had brief episodes of SVT which was self-sustaining. Patient's confusion cleared but she remained weak and it was recommended that she transferred to a long-term facility for rehab. Even though a request was put into the patient's insurance carrier, after 3 days the insurance carrier stated that they had not heard from the hospital and was not aware that the patient was hospitalized. Patient did not feel she was able to manage with ADLs at home and she was kept in the hospital and a repeat request was made to her insurance carrier for placement in a long-term facility. On 08/18/17, patient was seen and examined and felt to be in stable condition for transfer to long-term facility after this was approved by her insurance carrier. Home Medications: Medications to take at Discharge Cholecalciferol (VIT D3) [Vitamin D3] 5,000 unit PO DAILY 05/22/14 Vitamin B Complex 1 ea PO DAILY 05/22/14 Lactulose [Chronulac] 20 gm PO DAILY PRN 07/15/16 magnesium 250 mg tablet 750 mg PO QHS tab 06/16/17 folic acid-vit B6-vit B12 0.5 mg-5 mg-0.2 mg tablet 1 tab PO QDAY 07/02/17 vitamin A palmitate 10,000 unit capsule 10,000 unit PO QDAY ea 07/02/17 Acetaminophen [Tylenol Tablet] 650 mg PO Q4H PRN PRN tablet 08/18/17 Metoprolol(XL)Succ [Toprol Xl (Beta Di)] 50 mg PO BID 08/18/17 Primary Care Physician: Stephen Ramirez MD [Primary Care Provider] - Disposition: Nursing Home facility Minutes spent on discharge:: 32 Patient Condition:: Stable Medical Necessity - Tobacco Use Smoking Status: Never smoker Meaningful Use Info Meaningful Use Diagnoses (Choose all that apply): None applicable Code Visit Inpatient E AND M: 04728 Disch Hosp 08/19/171945 <Electronically signed by Silvestre Moreau DO> Date Silvestre Moreau DO Cosigner Signature (if applicable): Date CC: Stephen Ramirez MD; Silvestre Moreau DO Signed URINALYSIS, COMPLETE Collected: 08/20/2017 Status: F Source: [place] 11:15 AM [facility] REPOSITORY Order Comment: How was Urine Obtained? CATHETER SPECIMEN TYPE CODE TESTS RESULT OUT OF RANGE REFERENCE UNITS LAB L400.3000 Yellow COLOR Normal Yellow LAB L400.3050 Clear Normal CLARITY Sl. Cloudy LAB L400.3200 Normal mg/dl Normal GLUCOSE, UR Normal LAB L400.3300 Negative mg/dL Normal BILIRUBIN URINE Negative LAB L400.3400 Negative mg/dl Normal KETONE UR Negative LAB L400.3465 1.002-1.030 Normal SP.GR. DIPSTX 1.010 LAB L400.3550 5.0 - 8.0 pH UR Normal 8.0 LAB L400.3600 Negative mg/dl PROT Normal DIPSTX Negative LAB L400.3700 Normal mg/dl Normal UROBILI Normal LAB L400.3750 Negative Normal NITRITE UR Negative LAB L400.3780 Negative /ul Normal OCCULT BLOOD-UR Negative LAB L400.3800 Negative /ul LEUK Normal ESTERASE Negative LAB L400.4050 0-5 /hpf WBC 0 Normal SEEN LAB L400.4100 0-5 /hpf 0 Normal RBC-UA SEEN LAB L400.4150 5-10 /hpf SQUAM 0 Normal EPI SEEN LAB L400.4300 None Seen /hpf 0 Normal BACTERIA SEEN LAB L400.4350 <or=2+ /hpf 0 Normal MUCUS, URINE SEEN Performed By: #### L400.0001 #### [facility] [address] [place], [place], [address] Observed: 08/20/2017 Status: F Source: [place] CULTURE, URINE 11:15 AM [facility] REPOSITORY Urine Culture Culture exhibits no growth. Performed By: #### M100.0650 #### [facility] Laboratory [address] [place], [address] CBC W/DIFF, AUTOMATED Collected: 08/19/2017 Status: F Source: [place] 5:10 AM [facility] REPOS[facility] TYPE CODE TESTS RESULT OUT OF RANGE REFERENCE UNITS LAB L100.1000 4.4-11.0 K/mm3 Normal WBC 5.9 LAB L100.1200 4.2-5.4 M/mm3 Low RBC 4.04 LAB L100.1300 12.0-15.0 g/dl Normal HGB 12.7 LAB L100.1400 37-47 % Normal HCT 38.7 LAB L100.1500 81-99 fL Normal MCV 95.8 LAB L100.1600 27.0-32.0 pg Normal MCH 31.4 LAB L100.1700 32-36 g/gl Normal MCHC 32.8 LAB L100.1810 11.6-14.6 % Normal RDW CV 12.6 LAB L100.1820 35.1-43.9 fl Normal RDW SD 43.1 LAB L100.1900 150-450 K/mm3 Normal PLT 242 LAB L100.2000 6.2-12.0 fl Normal MPV 10.1 LAB L100.2100 47-70 % Normal NEUT% 57.4 LAB L100.2200 19-41 % Normal LY% 26.3 LAB L100.2300 0-10 % High MONO% 11.4 LAB L100.2400 0-5 % Normal EO% 3.5 LAB L100.2500 0-1 % Normal BASO% 0.7 LAB L100.2550 0.0-0.9 % Normal IM GRAN % 0.700 Result Comment: IG% - Immature Granulocytes (promyelocytes, myelocytes and metamyelocytes) > 1% indicates that a LEFT SHIFT is Present. LAB L100.2620 2.0-7.7 X10 3/uL Normal Absolute Neut 3.4 LAB L100.2720 0.83-4.51 X10 3/ul Normal Absolute Lymph 1.56 LAB L100.5500 ADEQ PLT Normal EST ADEQUATE LAB L100.5650 PLT Normal MORPH LARGE LAB L100.7300 ANISO Normal RARE LAB L100.7800 Normal MACROCYTE RARE Performed By: #### L100.0100 #### [facility] [address] [place], [address] BASIC METABOLIC Collected: 08/19/2017 Status: F Source: [place] PROFILE (BMP) 5:10 AM [facility] REPOSIT[facility] TYPE CODE TESTS RESULT OUT OF RANGE REFERENCE UNITS LAB L501.0100 74-106 mg/dL Normal GLU 87 Result Comment: Please note revised GLUCOSE reference range effective 2017. LAB L501.1000 7-18 mg/dL Normal BUN 13 LAB L501.1100 0.55-1.02 mg/dL Normal CREAT,SERUM 0.67 Result Comment: The validity of the calculated GFR AND GFRAA in patients over 70 years has not been determined. Clinical correlation is essential. LAB L501.1110 >60 mL/min Normal EST GFR 92 Result Comment: Non- GFR Calc LAB L501.1115 >60 mL/min Normal EST GFR - AA 111 Result Comment: GFR Calc LAB L501.1255 ml/min Normal Estimated CRCL 62.81 LAB L501.1300 10-20 RATIO Normal BUN/CRE 19.4 LAB L501.2200 8.5-10 mg/dL Normal .1 CA 8.7 LAB L501.5300 136-14 mmol/L Normal 5 NA 142 LAB L501.5600 3.5-5. mmol/L Normal 1 K 3.9 LAB L501.5900 98-107 mmol/L Normal CL 104 LAB L501.6100 21.0-3 mmol/L Normal 2.0 CO2 30.0 LAB L501.6200 5-15 Normal GAP 8 Performed By: #### L500.2500 #### [facility] [address] [place], [address] TRANSFER TO [facility] Observed: 08/18/2017 Status: F Source: [facility] 3:41 PM [facility] REPOSITORY [facility] Medical Records Department [address] [place] [address] Transfer to [facility] Care MR#: [id number] Acct: [id number] Name: LIZETTE PRICE Teri Rep #: [id number] : 1945 71 From: Silvestre Moreau DO PCP: Stephen Ramirez MD Status: ADM IN LIZETTE PRICE (Patient) (Health Ins. Claim No.) (Day of Discharge to Facility) Certification of patient admission REQUIRED AT TIME OF ADMISSION. I CERTIFY THAT POST-HOSPITAL ECF SERVICES ARE REQUIRED TO BE GIVEN ON AN IN-PATIENT BASIS BECAUSE OF THE ABOVE NAMED PATIENT'S NEED FOR RETIREMENT CARE ON A CONTINUING BASIS FOR THE CONDITION(S) FOR WHICH HE/SHE WAS RECEIVING IN-PATIENT HOSPITAL SERVICES PRIOR TO HIS/HER TRANSFER TO THE [facility]. 08/18/17 1541 <Electronically signed by Silvestre Moreau DO> Date Silvestre Moreau DO - Diet 08/14/17 09:01 Diet: Regular Diet Is pt able to select menu?: Yes - Therapies Weight Bearing: Full weight bearing Physical Therapy: Eval and Treat Occupational Therapy: Eval and Treat - Problem/Diagnosis (1) Low back pain Status: Chronic Current Visit: No (2) Supraventricular tachycardia Status: Chronic Current Visit: No (3) Debility Status: Acute Current Visit: Yes (4) Anxiety Status: Chronic Current Visit: Yes (5) Osteoarthritis Status: Chronic Current Visit: Yes (6) Myelopathy Status: Chronic Current Visit: No - Allergies/Procedures Done in Hospital Allergies/Adverse Reactions: Allergies lisinopril Allergy (Verified 08/11/17 21:35) Angioedema amlodipine [From Norvasc] Adverse Reaction (Severe, Verified 08/11/17 21:35) Freezes up limbs nifedipine [From Nifedical XL] Adverse Reaction (Severe, Verified 08/11/17 21:35) Freezes up limbs alendronate sodium [From Fosamax] Adverse Reaction (Intermediate, Verified 08/11/17 21:35) GI upset codeine Adverse Reaction (Verified 08/11/17 21:35) Unknown ibuprofen Adverse Reaction (Verified 08/11/17 21:35) Other HCTA Adverse Reaction (Intermediate, Uncoded 08/11/17 21:35) Low sodium LIPITOR Adverse Reaction (Uncoded 08/11/17 21:35) Unknown Procedures: None - Type of Care/Length of Stay Estimated LOS: Convalescent Care Less Than 30 days Type of Care Needed: Skilled Rehab Potential: Good Prognosis: Good - Additional Orders/Day of Discharge H AND P will serve as current which was dated: 08/11/17 Day of Discharge: 08/18/17 - Follow Up Care Primary Care Physician: Stephen Ramirez MD [Primary Care Provider] - 08/18/17 1541 <Electronically signed by Silvestre Moreau DO> Date Silvestre Moreau DO CC: Stephen Ramirez MD Signed 12 LEAD ELECTROCARDIOGRAM Observed: 08/15/2017 Status: F Source: [place] 2:52 PM [facility] REPOSITORY [facility] Cardiovascular Services [address] [place] [address] 12 Lead EKG 08/11/178 MR#: [id number] Acct: [id number] Name: LIZETTE PRICE Rep #: [id number] : 1945 71 From: Bret Daniels MD Attending Dr: Silvestre Moreau DO Status: ADM IN Ordering Dr: Gaetano Branch MD Date: 08/11/17 Location[place] [facility] [place] Sex: F C Admitted: 08/12/17 Test Reason : FALL Blood Pressure : / mmHG Vent. Rate : 085 BPM Atrial Rate : 085 BPM P-R Int : 202 ms QRS Dur : 090 ms QT Int : 330 ms P-R-T Axes : 041 -39 067 degrees QTc Int : 392 ms Normal sinus rhythm Left axis deviation Anterior infarct , age undetermined Abnormal ECG Confirmed by FRANCES OROZCO, BRTE ([id number]), manuscript editor SHONDA BROCK ([id number]) on 08/15/2017 2:51:48 PM Referred By: JERAD Confirmed By:BRET DANIELS MD 08/15/17 1451 Date Bret Daniels MD CC: Stephen Ramirez MD; Silvestre Moreau DO; Gaetano Branch MD Signed CHEST PA AND LATERAL Observed: 08/12/2017 Status: F Source: [place] 8:26 AM [facility] REPOSITORY [facility] Imaging Services [address] [place] [address] Chest PA and Lateral MR#: [id number] Acct: [id number] Name: LIZETTE PRICE Rep #: [id number] : 1945 F 71 From: Bebo Oseguera MD PCP: Stephen Ramirez MD Status: ADM IN Study: Chest PA and Lateral Date of Exam: 08/12/17 Exam# [id number] Ordering Dr: Silvestre Moreau DO STUDY: X-RAY CHEST REASON FOR EXAM: Female, 71 years old. Cough. TECHNIQUE: AP and lateral views of the chest. COMPARISON: Comparison is made with prior study dated August 11, 2017. FINDINGS: EKG electrodes are seen. The lungs are clear and expanded. Stable blunting of the left costophrenic angle. Mild cardiomegaly. Stable widening of the superior mediastinum is likely due to ectasia of the major vessels. Normal visualized pulmonary arteries. There is atherosclerotic tortuosity of the aortic arch and descending thoracic aorta. Normal visualized thoracic spine. There is degenerative osteoarthritis of the bilateral shoulders. There is no demonstrated abnormality of the visualized soft tissue structures of the upper abdomen. RAD/Chest PA and Lateral IMPRESSION: Stable examination. Electronically Signed: Bebo Oseguera MD at 12:37 EDT Tel [phone], Service support , CC: Stephen Ramirez MD; Silvestre Moreau DO Center Hole Reamer: Signed CBC W/DIFF, AUTOMATED Collected: 08/12/2017 Status: F Source: [place] 5:15 AM [facility] REPOSITORY TYPE CODE TESTS RESULT OUT OF RANGE REFERENCE UNITS LAB L100.1000 4.4-11.0 K/mm3 Normal WBC 5.5 LAB L100.1200 4.2-5.4 M/mm3 Low RBC 3.86 LAB L100.1300 12.0-15.0 g/dl Normal HGB 12.3 LAB L100.1400 37-47 % Low HCT 36.9 LAB L100.1500 81-99 fL Normal MCV 95.6 LAB L100.1600 27.0-32.0 pg Normal MCH 31.9 LAB L100.1700 32-36 g/gl Normal MCHC 33.3 LAB L100.1810 11.6-14.6 % Normal RDW CV 13.3 LAB L100.1820 35.1-43.9 fl High RDW SD 46.3 LAB L100.1900 150-450 K/mm3 Normal PLT 166 LAB L100.2000 6.2-12.0 fl Normal MPV 9.9 LAB L100.2100 47-70 % High NEUT% 82.8 LAB L100.2200 19-41 % Low LY% 9.7 LAB L100.2300 0-10 % Normal MONO% 7.3 LAB L100.2400 0-5 % Normal EO% 0.0 LAB L100.2500 0-1 % Normal BASO% 0.0 LAB L100.2550 0.0-0.9 % Normal IM GRAN % 0.200 Result Comment: IG% - Immature Granulocytes (promyelocytes, myelocytes and metamyelocytes) > 1% indicates that a LEFT SHIFT is Present. LAB L100.2620 2.0-7.7 X10 3/uL Normal Absolute Neut 4.6 LAB L100.2720 0.83-4.51 X10 3/ul Low Absolute Lymph 0.53 LAB L100.4500 Normal SMEAR COMMENT SCANNED Performed By: #### L100.0100 #### [facility] [address] [facility] [place], [address] BASIC METABOLIC Collected: 08/12/2017 Status: F Source: [place] PROFILE (BMP) 5:15 AM [facility] REPOSITORY TYPE CODE TESTS RESULT OUT OF RANGE REFERENCE UNITS LAB L501.0100 74-106 mg/dL Normal GLU 102 Result Comment: Fasting Glucose result from 100 to 125 mg/dL suggests IMPAIRED HOMEOSTASIS per A.D.A. criteria. Please note revised GLUCOSE reference range effective 2017. LAB L501.1000 7-18 mg/dL Normal BUN 18 LAB L501.1100 0.55-1.02 mg/dL Normal CREAT,SERUM 0.62 Result Comment: The validity of the calculated GFR AND GFRAA in patients over 70 years has not been determined. Clinical correlation is essential. LAB L501.1110 >60 mL/min Normal EST GFR 101 Result Comment: Non- GFR Calc LAB L501.1115 >60 mL/min Normal EST GFR - AA 122 Result Comment: GFR Calc LAB L501.1255 ml/min Normal Estimated CRCL 64.03 LAB L501.1300 10-20 RATIO High BUN/CRE 29.1 LAB L501.2200 8.5-10 mg/dL Low .1 CA 7.7 LAB L501.5300 136-14 mmol/L Normal 5 NA 140 LAB L501.5600 3.5-5. mmol/L Normal 1 K 3.5 LAB L501.5900 98-107 mmol/L High CL 108 LAB L501.6100 21.0-3 mmol/L Normal 2.0 CO2 25.0 LAB L501.6200 5-15 Normal GAP 7 Performed By: #### L500.2500 #### [facility] [address] [place], [address] MAGNESIUM Collected: 08/12/2017 Status: F Source: [place] 5:15 AM [facility] REPOSITORY TYPE CODE TESTS RESULT OUT OF RANGE REFERENCE UNITS LAB L501.5200 1.6-2.6 mg/dL Normal MG 1.7 Performed By: #### L501.5200 #### [facility] [address] [place], [address] HISTORY AND PHYSICAL Observed: 08/12/2017 Status: F Source: [place] EXAM 12:25 AM [facility] REPOSITORY [facility] Medical Records Department [address] [place] [address] History and Physical 08/11/17 2347 MR#: [id number] Acct: [id number] Name: LIZETTE PRICE Rep #: [id number] : 1945 71 From: Benny Spivey MD PCP: Stephen Ramirez MD Status: REG ER Y Location: ED Problem List (1) Fall with injury Status: Acute Qualifiers: Encounter type: initial encounter Qualified Code(s): W19.XXXA - Unspecified fall, initial encounter (2) Unable to walk Status: Acute (3) BMI 40.0-44.9, adult Status: Chronic (4) Gastroparesis Status: Chronic (5) Myelopathy Status: Chronic (6) Low back pain Status: Chronic (7) Myalgia and myositis Status: Chronic (8) Malaise and fatigue Status: Chronic (9) Aortic stenosis Status: Chronic (10) Hypertension Status: Chronic Qualifiers: (11) Sarcoidosis Status: Chronic (12) Confusion Status: Acute History of Present Illness Date of Admission: 08/11/17 Chief Complaint: fall with injury, unable to walk, confusion The patient is a 71 year old female patient who lives at home with her family presents to the ER after a fall. The patient is a poor historian due to confusion. It is reported that she has had a cough recently. She has a low grade fever. CT scan of the head is negative for acute findings, Chest x-ray is negative for acute findings. X-ray of the hip is negative for fracture. Despite this she is unable to bear weight at present time and she remains confused. She will be admitted for further management. Levaquin was started empirically. Past Medical History Past Medical History (Chronic Problems): Chronic Problems (Last Updated 07/02/17 @ 14:42 by Eulalia Torres) BMI 40.0-44.9, adult (Chronic) Gastroparesis (Chronic) Myelopathy (Chronic) Spinal cord lesion (Chronic) Low back pain (Chronic) Myalgia and myositis (Chronic) Malaise and fatigue (Chronic) Supraventricular tachycardia (Chronic) Palpitations (Chronic) Subsequent non-ST elevation (NSTEMI) myocardial infarction (Chronic) 02/16/15 Aortic stenosis (Chronic) Hypertension (Chronic) Sarcoidosis (Chronic) Obesity (BMI 30-39.9) (Chronic) Malabsorption (Chronic) Allergies lisinopril Allergy (Verified 08/11/17 21:35) Angioedema amlodipine [From Norvasc] Adverse Reaction (Severe, Verified 08/11/17 21:35) Freezes up limbs nifedipine [From Nifedical XL] Adverse Reaction (Severe, Verified 08/11/17 21:35) Freezes up limbs alendronate sodium [From Fosamax] Adverse Reaction (Intermediate, Verified 08/11/17 21:35) GI upset codeine Adverse Reaction (Verified 08/11/17 21:35) Unknown ibuprofen Adverse Reaction (Verified 08/11/17 21:35) Other HCTA Adverse Reaction (Intermediate, Uncoded 08/11/17 21:35) Low sodium LIPITOR Adverse Reaction (Uncoded 08/11/17 21:35) Unknown Home Medications: Ambulatory Orders Medication Instructions Recorded Surgical History: total knee arthroplasty, tonsillectomy Psychiatric History: No pertinent psych hx PREPARER SAMPLES AND REPAIRS History: No pertinent PREPARER SAMPLES AND REPAIRS history Smoking Status: Never smoker - *Family History Paternal History Items: - - AAA Maternal History Items: Heart Disease Sibling History Items: Diabetes Review of Systems Constitutional: Reports: Fever, Malaise, Weakness, Fatigue. Denies: Chills, Weight Change HEENT: Denies: Head Aches, Sinus Congestion, Sinus Drainage Cardiovascular: Denies: Chest Pain, Palpitations Respiratory: Denies: Cough, Shortness of breath at rest, Sputum production Gastrointestinal: Denies: Abdominal Pain, Nausea, Vomiting Genitourinary: Denies: Dysuria Musculoskeletal: Denies: Joint Pain, Joint Tenderness Skin: Denies: Rash, Wounds Neurological: Denies: Numbness, Tingling, Focal weakness Psychiatric: Denies: Anxiety, Depression, Homicidal Ideations, Suicidal Ideations Hematologic/ Lymphatic: Denies: Easy Bruising, Easy Bleeding Unable to obtain accurate/complete ROS d/t: patient is confused- history per reports VTE Information - Inpt Only VTE Present on Admission: No VTE Mechan Device Prophylaxis: None VTE Pharm Prophylaxis ordered?: Yes Patient Problems: Active and Suspected Problems (Last Updated 07/02/17 @ 14:42 by Eulalia Torres) Fall with injury (Acute) Unable to walk (Acute) Confusion (Acute) - Physical Exam General: Alert, Confused HEENT: Atraumatic, PERRLA, EOMI, Normocephalic Neck: Supple Lungs: Clear to auscultation, Normal air movement, No rhonchi, No wheeze, No rales Cardiovascular: Regular rate, Normal S1, Normal S2, No murmurs, Murmur - 3/6 billy Abdomen: Bowel Sounds Present, Soft, Non Tender Extremities: No edema, Capillary Refill Less than 3 Seconds Skin: No rashes Musculoskeletal: No Tenderness to Palpation of Joints or Extremities Neurological: Neuro grossly intact Psych/Mental Status: Normal Affect, Appropriate Vital Signs Temp Pulse Resp BP Pulse Ox 99.5 F H 87 20 H 155/93 H 94 08/11/17 21:31 08/11/17 21:31 08/11/17 21:31 08/11/17 21:31 08/11/17 21:46 Oxygen Delivery Method Room Air Weight: 176 lb 5.917 oz Body Mass Index (BMI) 39.5 Finger Stick Blood Glucose 122 Laboratory Tests Past 24 Hrs WBC 6.8 WBC RBC Hgb Hct MCV MCH MCHC RDW RDW Differential Plt Count MPV Immature Gran % (Auto) Neut % (Auto) Lymph % (Auto) Assessment/Plan Active and Suspected Problems (Last Updated 07/02/17 @ 14:42 by Eulalia Torres) Fall with injury (Acute) Unable to walk (Acute) Confusion (Acute) Chronic Problems (Last Updated 07/02/17 @ 14:42 by Eulalia Torres) BMI 40.0-44.9, adult (Chronic) Gastroparesis (Chronic) Myelopathy (Chronic) Spinal cord lesion (Chronic) Low back pain (Chronic) Myalgia and myositis (Chronic) Malaise and fatigue (Chronic) Supraventricular tachycardia (Chronic) Palpitations (Chronic) Subsequent non-ST elevation (NSTEMI) myocardial infarction (Chronic) 02/16/15 Aortic stenosis (Chronic) Hypertension (Chronic) Sarcoidosis (Chronic) Obesity (BMI 30-39.9) (Chronic) Malabsorption (Chronic) Plan - admit to medical surgical floor. - continue levaquin - physical therapy to evaluate and treat - IV normal saline at 125cc/hour - cbc, bmp in am - continue routine home medications - LMWH for DVT prophylaxis Code Visit Inpatient E AND M: 36349 Init Hosp L3 08/12/17 0025 <Electronically signed by Benny Spivey MD> Date Benny Spivey MD Cosigner Signature: Date (if applicable) CC: Stephen Ramirez MD; Benny Spivey MD Signed EMERGENCY DEPARTMENT Observed: 08/11/2017 Status: F Source: [place] SUMMARY 11:36 PM [facility] REPOSITORY [facility] Medical Records Department [address] [place] [address] Emergency Department Summary 08/11/17 2321 MR#: [id number] Acct: [id number] Name: LIZETTE PRICE Rep #: [id number] : 1945 71 From: Gaetano Branch MD PCP: Stephen Ramriez MD Status: REG ER - ER Visit Summary Date of Service: 08/11/17 Chief Complaint: Fall, hip pain History of Present Illness: The patient is a 71 F resents to the emergency department after a fall. Patient is very vague on the details. She has a history of sarcoidosis. She lives at home with her sister. She states she was trying to get out of her bed and cannot recall falling. She ended up on the ground and was unable to stand. She normally walks with a walker. She states that she thinks she slipped but cannot totally remember. The patient does admit to chills and sweats over the past 24 hours. She has had a scant nonproductive cough. She has felt increasing malaise and generalized weakness. She does not take anticoagulants. She denies any chest pain. She was mildly nauseated earlier today but that has since resolved. She does have history of prior stroke. Physical Examination: Vital signs reviewed General: Well-nourished, well-developed Head: Normocephalic, atraumatic Eyes: Pupils equal and reactive, extraocular muscles intact Neck, supple, no lymphadenopathy Heart: Regular rate and rhythm Respiratory: No distress, minutes in the bases Abdomen: Soft, nontender, nondistended, no peritoneal signs Back: Nontender Extremities: Right hip tender to palpation. Pain with logroll. Normal pulses. Skin: Normal color no rash Neuro: Alert and oriented to person and place, no focal or lateralizing deficits Test Results: [] Emergency Department Course and Treatment: It was hard to tell if the patient actually had a mechanical fall or if this was a syncopal event. Clinically, she does have infectious symptoms. She has had a scant cough with fever and chills. Labs were obtained. These are relatively unremarkable. Her EKG is sinus rhythm without acute ischemic change. Chest x-ray shows no pneumonia. Head CT is shows chronic change without evidence of acute bleeding. Pelvis x-ray and hip x-ray were unremarkable without evidence of fracture. Urine shows no infection. The patient was given fluids, analgesics, and reevaluated. She continues to have what appears to be a mild delirium. I do suspect there may be an infectious process. We did attempt to ambulate the patient, but she was very unsteady on her feet. At this time, I do not have a great feel for what caused her symptoms. I do suspect she may have an early pneumonia. With her weakness and inability to ambulate, I did discuss the patient with the hospitalist and she will be admitted. Treatment Plan: [] Disposition: Admission Impression: 1. Fall 2. Right hip pain with inability to ambulate 3. Delirium This note was generated with [email or web address] dictation software. It may contain incorrect words, spelling, and punctuation that were not noted in review of the chart prior to signing ED Disposition - Plan for ED Patient: Chief Complaint: Fall Referrals: Stephen Ramirez MD [Primary Care Provider] - What to do if you have Problems For any increased pain, shortness of breath, bleeding, nausea or vomiting, chest pain, or any unexpected problems, contact your Primary Care Provider. Call [facility] ([phone]) or report to the closest Emergency Room. Call 911 if necessary. 08/11/17 3451 <Electronically signed by Gaetano Branch MD> Date Gaetano Branch MD Cosigner Signature (If Indicated): Date CC: Stephen Ramirez MD URINALYSIS, COMPLETE Collected: 08/11/2017 Status: F Source: [place] 10:35 PM [facility] REPOSITORY Order Comment: How was Urine Obtained? CLEAN CATCH TYPE CODE TESTS RESULT OUT OF RANGE REFERENCE UNITS LAB L400.3000 Yellow COLOR Normal Yellow LAB L400.3050 Clear Normal CLARITY Clear LAB L400.3200 Normal mg/dl Normal GLUCOSE, UR Normal LAB L400.3300 Negative mg/dL Normal BILIRUBIN URINE Negative LAB L400.3400 Negative mg/dl High 5 KETONE UR LAB L400.3465 1.002-1.030 Normal SP.GR. DIPSTX 1.020 LAB L400.3550 5.0 - 8.0 pH UR Normal 6.0 LAB L400.3600 Negative mg/dl High PROT 30 DIPSTX LAB L400.3700 Normal mg/dl Normal UROBILI Normal LAB L400.3750 Negative Normal NITRITE UR Negative LAB L400.3780 Negative /ul High 10 OCCULT BLOOD-UR LAB L400.3800 Negative /ul LEUK Normal ESTERASE Negative LAB L400.4050 0-5 /hpf WBC 0 Normal SEEN LAB L400.4100 0-5 /hpf 0 Normal RBC-UA SEEN LAB L400.4150 5-10 /hpf SQUAM Normal EPI 0-5 SEEN LAB L400.4300 None Seen /hpf 0 Normal BACTERIA SEEN LAB L400.4350 <or=2+ /hpf 1+ Normal MUCUS, URINE LAB L400.4400 0-5 /lpf Normal HYALINE CAST 0-5 SEEN Performed By: #### L400.0001 #### [facility] [address] [place], [place], [address] CBC W/DIFF, AUTOMATED Collected: 08/11/2017 Status: F Source: [place] 9:50 PM [facility] REPOSITORY TYPE CODE TESTS RESULT OUT OF RANGE REFERENCE UNITS LAB L100.1000 4.4-11.0 K/mm3 Normal WBC 6.8 LAB L100.1200 4.2-5.4 M/mm3 Normal RBC 4.39 LAB L100.1300 12.0-15.0 g/dl Normal HGB 13.6 LAB L100.1400 37-47 % Normal HCT 41.8 LAB L100.1500 81-99 fL Normal MCV 95.2 LAB L100.1600 27.0-32.0 pg Normal MCH 31.0 LAB L100.1700 32-36 g/gl Normal MCHC 32.5 LAB L100.1810 11.6-14.6 % Normal RDW CV 13.1 LAB L100.1820 35.1-43.9 fl High RDW SD 45.3 LAB L100.1900 150-450 K/mm3 Normal PLT 162 LAB L100.2000 6.2-12.0 fl Normal MPV 9.5 LAB L100.2100 47-70 % High NEUT% 88.8 LAB L100.2200 19-41 % Low LY% 4.7 LAB L100.2300 0-10 % Normal MONO% 6.4 LAB L100.2400 0-5 % Normal EO% 0.0 LAB L100.2500 0-1 % Normal BASO% 0.1 LAB L100.2550 0.0-0.9 % Normal IM GRAN % 0.000 Result Comment: IG% - Immature Granulocytes (promyelocytes, myelocytes and metamyelocytes) > 1% indicates that a LEFT SHIFT is Present. LAB L100.2620 2.0-7.7 X10 3/uL Normal Absolute Neut 6.1 LAB L100.2720 0.83-4.51 X10 3/ul Low Absolute Lymph 0.32 LAB L100.4500 Normal SMEAR COMMENT SEE COMMENT Result Comment: LYMPHOPENIA NOTED LAB L100.5500 ADEQ PLT EST Normal ADEQUATE LAB L100.7300 ANISO RARE Normal LAB L100.7800 RARE Normal MACROCYTE Performed By: #### L100.0100 #### [facility] [address] [place], [place], [address] PROTHROMBIN TIME W/INR Collected: 08/11/2017 Status: F Source: [place] 9:50 PM [facility] REPOSITORY TYPE CODE TESTS RESULT OUT OF RANGE REFERENCE UNITS LAB L300.4150 11.7-14.9 SECONDS Normal PROTIME 14.1 LAB L300.4200 Normal INR 1.1 Performed By: #### L300.3900 #### [facility] [address] [place], [address] COMPREHENSIVE METABOLIC Collected: 08/11/2017 Status: F Source: [facility] 9:50 PM [facility] REPOSITORY TYPE CODE TESTS RESULT OUT OF RANGE REFERENCE UNITS LAB L501.0100 74-106 mg/dL High GLU 122 Result Comment: Fasting Glucose result from 100 to 125 mg/dL suggests IMPAIRED HOMEOSTASIS per A.D.A. criteria. Please note revised GLUCOSE reference range effective 2017. LAB L501.1000 7-18 mg/dL High BUN 20 LAB L501.1100 0.55-1.02 mg/dL Normal CREAT,SERUM 0.84 Result Comment: The validity of the calculated GFR AND GFRAA in patients over 70 years has not been determined. Clinical correlation is essential. LAB L501.1110 >60 mL/min Normal EST GFR 71 Result Comment: Non- GFR Calc LAB L501.1115 >60 mL/min Normal EST GFR - AA 86 Result Comment: GFR Calc LAB L501.1255 ml/min Normal Estimated CRCL 77.58 LAB L501.1300 10-20 RATIO High BUN/CRE 23.8 LAB L501.1500 6.4-8. g/dL Normal 2 T PROT 7.3 LAB L501.1800 3.2-5. g/dL Normal 0 ALB 3.4 LAB L501.1950 2.2-4. g/dL Normal 2 GLOB 3.9 LAB L501.2000 0.9-2. RATIO Normal 4 A/G 0.9 LAB L501.2200 8.5-10 mg/dL Low .1 CA 8.4 LAB L501.4100 15-37 U/L Normal AST 20 LAB L501.4305 45-117 U/L Normal ALK P 63 LAB L501.4405 13-56 U/L Normal ALT 30 LAB L501.4600 0.20-1 mg/dL Normal .00 T BILI 0.60 LAB L501.5300 136-14 mmol/L Normal 5 NA 139 LAB L501.5600 3.5-5. mmol/L Normal 1 K 3.5 LAB L501.5900 98-107 mmol/L Normal CL 104 LAB L501.6100 21.0-3 mmol/L Normal 2.0 CO2 27.0 LAB L501.6200 5-15 Normal GAP 8 Performed By: #### L500.4050 #### [facility] [address] [facility] [place], [place], [address] CHEST 1 VIEW Observed: 08/11/2017 Status: F Source: [place] (PORTABLE) 9:45 PM [facility] REPOSITORY [facility] Imaging Services [address] [place], [place] [address] [address] Chest 1 View (Portable) MR#: [id number] Acct: [id number] Name: LIZETTE PRICE Rep #: [id number] : 1945 F 71 From: Hero Zuñiga DO PCP: Stephen Ramirez MD Status: REG ER Study: Chest 1 View (Portable) Date of Exam: 08/11/17 Exam# [id number] Ordering Dr: Gaetano Branch MD STUDY: X-RAY CHEST REASON FOR EXAM: Female, 71 years old. Fall, found face down. TECHNIQUE: Single AP portable view of the chest. COMPARISON: 17 September 2015 FINDINGS: The lungs are clear and expanded. There is no demonstrated pleural abnormality. Normal size heart. Widened appearance of the mediastinum is noted similar to 2016 exam. Normal visualized pulmonary arteries. Normal visualized aortic arch and descending thoracic aorta. Normal visualized thoracic spine. There is degenerative osteoarthritis of the bilateral shoulders. There is no demonstrated abnormality of the visualized soft tissue structures of the upper abdomen. RAD/Chest 1 View (Portable) IMPRESSION: Overall similar appearance compared to the 2016 exam with no evidence of focal airspace disease. Electronically Signed: Hero Zuñiga DO at 22:29 EDT , Service support , CC: Stephen Ramirez MD; Gaetano Branch MD Center Hole Reamer: Signed HIP 2-3 VIEWS WITH Observed: 08/11/2017 Status: F Source: [place] PELVIS 9:45 PM [facility] REPOSITORY [facility] Imaging Services [address] [place] [address] Hip 2-3 Views with Pelvis MR#: [id number] Acct: [id number] Name: LIZETTE PRICE Rep #: [id number] : 1945 F 71 From: Hero Zuñiga DO PCP: Stephen Ramirez MD Status: REG ER Study: Hip 2-3 Views with Pelvis Date of Exam: 08/11/17 Exam# [id number] Ordering Dr: Gaetano Branch MD STUDY: X-RAY - PELVIS AND RIGHT HIP REASON FOR EXAM: Female, 71 years old. Fall, face down. TECHNIQUE: Radiological exam, hip, unilateral, with pelvis when performed; 2 or 3 views. COMPARISON: None. FINDINGS: There is a non-specific bowel gas pattern. Normal visualized soft tissue structures. Diffuse osteopenic changes are present. Normal bilateral iliac wings, sacroiliac joints and visualized sacrum. Normal bilateral superior and inferior pubic rami. There are degenerative changes of the pubic symphysis with articular narrowing and sclerosis. Normal bilateral ischial tuberosities. Normal visualized femoral head. Normal acetabulum. There is mild articular joint space narrowing of the hip. RAD/Hip 2-3 Views with Pelvis IMPRESSION: Degenerative changes and osteopenic changes with no evidence of acute fracture or dislocation. Electronically Signed: Hero Zuñiga DO at 22:31 EDT , Service support , CC: Stephen Ramirez MD; Gaetano Branch MD Center Hole Reamer: Signed BRAIN/HEAD WITHOUT Observed: 08/11/2017 Status: F Source: [place] CONTRAST 9:45 PM [facility] REPOSITORY [facility] Imaging Services [address] [place] [address] Brain/Head without Contrast MR#: [id number] Acct: [id number] Name: LIZETTE PRICE Rep #: [id number] : 1945 F 71 From: Hero Zuñiga DO PCP: Stephen Ramirez MD Status: REG ER Study: Brain/Head without Contrast Date of Exam: 08/11/17 Exam# [id number] Ordering Dr: Gaetano Branch MD STUDY: CT BRAIN WITHOUT CONTRAST REASON FOR EXAM: Female, 71 years old. Fall, head pain. RADIATION DOSAGE (If Supplied By Facility): CTDIvol = ( 44.399 ) mGy, DLP = ( 779.24 ) mGycm TECHNIQUE: Transaxial CT imaging of the brain was performed without administration of intravenous contrast material. Individualized dose optimization techniques were used for this CT. COMPARISON: 23 May 2014 MRI brain FINDINGS: Normal soft tissue structures. Normal calvarium. There is moderate cerebral atrophy with widening of the extra- axial spaces and ventricular dilatation. There are areas of decreased attenuation within the white matter tracts of the supratentorial brain, consistent with microvascular disease changes. Left subinsular region of encephalomalacia is present. Normal brainstem. Normal cerebellum. There is no intracranial hemorrhage. There are no findings of an acute ischemic infarction. Normal visualized paranasal sinuses. CT/Brain/Head without Contrast IMPRESSION: Senescent changes with no evidence of acute intracranial bleed, mass or ischemia. Electronically Signed: Hero Zuñiga DO at 22:38 EDT , Service support , CC: Stephen Ramirez MD; Gaetano Branch MD [facility] Reamer: Signed [id number] Observed: 07/29/2017 Status: COMPLETED Source: [place] 12:00 AM [facility] REPOSITORY Patient Outreach (FAMPST) LIZETTE PRICE ([id number]) 1945 F Date Time Provider Department 07/29/17 STEPHEN RAMIREZPSParveen During your visit today, we recorded the following information about you: Allergies As of Date: 07/29/2017 Noted Allergy Reaction LISINOPRIL 01/23/2012 7 - Swelling 10 - Anaphylaxis Comments: Face, mouth, and tongue. CODEINE 11/01/2008 5 - Intolerance Comments: Headache FOSAMAX (ALENDRONATE) 04/19/2014 14 - Other: See Comments Comments: GI upset IBUPROFEN 03/08/2005 8 - GI Upset Comments: Epigastric pain. In higher dose. LIPITOR (ATORVASTATIN) 07/05/2015 5 - Intolerance Comments: complained of weakness of legs Date Reviewed: 05/13/2017 Reviewed by: Shannon Richard - Fully Assessed Visit Diagnosis:Medication management [Z79.899] Order(s):HGB A1C [VTRUC4D] Order #: [id number] FUTURE Prescriptions as of 07/29/2017 Sig: METOPROLOL SUCCINATE ER 25 MG* Take 1 tablet by mouth twice * CHOLECALCIFEROL (VITAMIN D3) * Take 5,000 Units by mouth onc* COMPOUNDED PRESCRIPTION Viki microbial defense* OTC NUTRITIONAL SUPPLEMENT zypan supplement COMPOUNDED PRESCRIPTION Home Health cataract lens generator, ai* ACETAMINOPHEN 500 MG TABLET Take 1 tablet by mouth every * MAGNESIUM 250 MG TABLET Take 1,000 mg by mouth. * MULTIVITAMIN TABLET Take one(1) tablet daily. Problem List As Of Date 07/29/2017 Noted Resolved Essential hypertension [I10] INVALID FOR* Malaise and fatigue [R53.81, R53.83] INVALID FOR* Other and unspecified hyperlipidemia [E78.5] INVALID FOR*07/30/2012 INT HEMORRHOID W/O COMPL [K64.8] INVALID FOR* Unspecified constipation [K59.00] INVALID FOR*02/19/2012 GASTROINTEST HEMORR NOS [K92.2] INVALID FOR* MYALGIA AND MYOSITIS NOS [DDH6141] INVALID FOR* CONGENITAL PES PLANUS [Q66.50] INVALID FOR* Tibialis Tendinitis [M76.829] INVALID FOR* Generalized Osteoarthrosis, Unspecified Site [M*INVALID FOR* Contact Dermatitis and Other Eczema, due to Uns*INVALID FOR* Morbid obesity with BMI of 40.0-44.9, adult (HC* 01/25/2016 Low back pain [M54.5] INVALID FOR* Numbness and tingling in hands [R20.0, R20.2] INVALID FOR* Spinal cord lesion (HCC) [G95.9] INVALID FOR* Neck pain [M54.2] INVALID FOR* Gait instability [R26.81] INVALID FOR* Myelopathy (HCC) [G95.9] INVALID FOR* Closed spondylolysis fracture of lumbar vertebr*INVALID FOR* Spondylolisthesis, grade 3 [M43.19] INVALID FOR* Abnormality of gait [R26.9] INVALID FOR* Muscle weakness (generalized) [M62.81] INVALID FOR* Angioedema [T78.3XXA] INVALID FOR* More... Special screening for malignant neoplasms, colo*INVALID FOR* Gastroparesis [K31.84] More... Ischial bursitis of right side [M70.71] INVALID FOR* Gastric ulcer without hemorrhage or perforation*INVALID FOR*05/11/2015 Sarcoidosis (HCC) [D86.9] Balance problem [R26.89] INVALID FOR* Chronic cholecystitis with calculus [K80.10] INVALID FOR* Chronic right-sided low back pain with right-si*INVALID FOR* Sacroiliac pain [M53.3] INVALID FOR* Encounter Status:Closed by RASHAUN RAMOS on 01/09/18 PULMONARY VISIT REPORT Observed: 07/02/2017 Status: F Source: [place] 3:10 PM [facility] REPOSITORY [facility] of [address] [place] [address] OFFICE VISIT Date of Service: 07/02/17 MR#: [id number] Acct: [id number] Name: VERONICA PRICERA Williamson Rep #: [id number] : 1945 Provider: Portillo Garay D.O. Age/Sex: 71/F Location: [facility] Status: Signed Assessment AND Plan 1. Sarcoidosis D86.9 Plan The exact manner in which the patient sarcoidosis was diagnosed remains unclear at this time. 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 She was reportedly treated with high-dose steroids at the initial diagnosis. The patient was seen by Dr. Urena noted that she did not have any active pulmonary sarcoidosis. We will first begin by obtaining the outside medical records from the [facility] regarding the patient's exact diagnosis. In the meantime, we will plan to obtain baseline pulmonary function testing on her. There are a couple of chest x-rays in our system but none reveal significant mediastinal or hilar lymphadenopathy. She may be a candidate for dedicated chest imaging by CT scan at some point in the future depending on what her outside medical records and up showing. For now, the patient is asymptomatic from a respiratory standpoint. She will follow-up with me accordingly to review the results of her PFTs and after I have had time to review her outside medical records, once obtained. Orders Orders: Plan Detail Other Medications New: Discontinued: begtdrnrpxdi-Zp-lobj-minerals tablet Discontinued Reason1 tab PO DAILY Eulalia Torres : Pt no longer taking Follow Up 3 Months (DMB) HPI HPI Comments Details: The patient is a 71-year-old female who presents to the clinic today and referral for evaluation of sarcoidosis. 10 pages of outside medical records were personally reviewed at today's office visit. It appears that the patient was previously managed by Dr. Urena at [facility]. His last office visit note from November 2016 indicated that the patient had no evidence of progressive pulmonary sarcoidosis. At that time, he recommended that the patient undergo a diagnostic polysomnogram. Pulmonary function testing was last completed in May 2015 through the clinic clinic. It appears that only spirometry was performed and found to be normal. Surface echocardiogram dated January 2015 revealed moderate concentric LVH with stage I diastolic dysfunction and mild to moderate aortic stenosis. The patient stated that she was initially diagnosed with sarcoidosis 2 years ago through the [facility]. She states that she was experiencing extremity weakness and neuropathy and underwent what sounds to be like a lumbar puncture and subsequent neuro workup. However, the details of her exact diagnosis and how exactly sarcoidosis was diagnosed is unclear. At this time, she denies the presence of shortness of breath, cough, chest tightness or wheezing. She reports that she is now developing worsening lower extremity weakness and neuropathy. She is currently seated in a wheelchair. She does report that upon her initial diagnosis of sarcoidosis 2 years ago she was treated with high-dose steroids. She is a lifelong non-smoker and denies a previous history of asthma or COPD. She denies the presence of fevers, chills or night sweats. Her weight has been relatively stable. She denies chest pain, dizziness or lightheadedness. Intake Vital Signs07/02/17 Height 4 ft 11 in 07/02/17 Weight: 173 lb Intake Visit Reasons: Sarcoidosis Accompanied by: Daughter Allergies lisinopril Allergy (Verified 07/02/17 14:13) Angioedema amlodipine [From Norvasc] Adverse Reaction (Severe, Verified 07/02/17 14:13) Freezes up limbs nifedipine [From Nifedical XL] Adverse Reaction (Severe, Verified 07/02/17 14:13) Freezes up limbs alendronate sodium [From Fosamax] Adverse Reaction (Intermediate, Verified 07/02/17 14:13) GI upset codeine Adverse Reaction (Verified 07/02/17 14:13) Unknown ibuprofen Adverse Reaction (Verified 07/02/17 14:13) Other HCTA Adverse Reaction (Intermediate, Uncoded 07/02/17 14:13) Low sodium LIPITOR Adverse Reaction (Uncoded 07/02/17 14:13) Unknown Medications Cholecalciferol (VIT D3) [Vitamin D3] 5,000 unit PO DAILY 05/22/14 [History Confirmed 07/02/17] Vitamin B Complex 1 ea PO DAILY 05/22/14 [History Confirmed 07/02/17] Acetaminophen [Tylenol] 500 mg PO DAILY 07/15/16 [History Confirmed 07/02/17] Lactulose [Chronulac] 20 gm PO DAILY PRN 07/15/16 [History Confirmed 07/02/17] magnesium 250 mg tablet 750 mg PO QHS tab 06/16/17 [History Confirmed 07/02/17] metoprolol succinate ER 25 mg tablet,extended release 24 hr 25 mg PO BID 06/16/17 [History Confirmed 07/02/17] alfalfa 650 mg tablet 650 mg PO QDAY ea 07/02/17 [History Confirmed 07/02/17] folic acid-vit B6-vit B12 0.5 mg-5 mg-0.2 mg tablet 1 tab PO QDAY 07/02/17 [History Confirmed 07/02/17] vitamin A palmitate 10,000 unit capsule 10,000 unit PO QDAY ea 07/02/17 [History Confirmed 07/02/17] PFSH Family History Father Hypertension Aortic aneurysm Mother Hypertension Sister Hypertension Social History household members: caregiver housing: [facility] pets and animals: No Smoking Status: Never smoker alcohol intake: former year quit: 2015 substance use type: does not use caffeine: No what type of physical activity do you participate in: none seatbelt use: always do you feel safe at home: Yes Review of Systems Const CONSTITUTIONAL: Negative anorexia, body ache, chills, daytime sleepiness, fever(s), night sweats, oral thrush, stops breathing during sleep, weight loss, sleeping in chair, fatigue, weight loss, weight gain, frequent colds, seasonal allergies, other, headache(s) or orthopnea EETM Ear Nose Throat Mouth: Positive hearing normal; negative hard of hearing, hoarseness, dry mouth in morning, change in vision, itchy eyes, eye pain, swallowing Difficulty, ear pain, nose bleed, headache(s), mouth pain, nasal congestion, nasal discharge, post nasal drip, sinus pain, sinus pressure, sore throat or other Cardio Cardiovascular: Positive murmur; negative chest pain, chest pain at rest, chest pain with activity, irregular heart rhythm, edema, shortness of breath when lying down, palpitations or other Resp Respiratory: Positive as per HPI and shortness of breath; negative pain with cough, wheezing, chest congestion, cough, chest tightness, pain on inspiration, inhalers, increase use of rescue inhalers, snoring, apnea or other Gastro Gastrointestional: Negative bloody stools, change in appetite, difficulty swallowing, reflux, hematemesis, melena stool, loose stool, constipation or other Genitourinary: Negative blood in urine, nocturia, pain with urination or other Musc Musculoskeletal: Negative body pain, back pain, neck pain or other Skin/Breast Skin/Breast: Negative dry skin, itching, rash, unusual bruising, breast lump or other Neuro Neurological: Negative restless legs, confusion, weakness or other Psych Psychocological: Negative abnormal sleep pattern, anxiety, thoughts of hurting self/others, hopelessness or other Lymph Lymphatic: Negative easy bleeding, easy bruising, swollen lymph nodes or other Exam Const Constitutional: Positive conversant, cooperative, in no acute respiratory distress, well developed, well nourished and good hygiene Head Head: Positive normocephalic and atraumatic; negative cyanosis of lips/distal nose Eyes Eye: Positive clear conjunctiva; negative nystagmus or scleral abnormality Ears Ear: Positive hearing normal and external ears normal; negative hard of hearing Nose Nose: Positive external nose normal; negative epistaxis Mouth Mouth: Positive oral mucosae normal and posterior oropharynx is adequate; negative no lesions or post nasal drip Mallampati Score: II: Mallampati Score Neck Neck: Positive normal visual inspection and trachea midline; negative lymphadenopathy Chest Wall Chest: Positive symmetric chest movement Normal AP diameter. Resp lung sounds: Positive clear to auscultation and good air exchange; negative wheezes, rhonchi or rales Cardio Cardiac: Positive regular rate, regular rhythm, S1 normal, S2 normal and murmur murmur: Positive systolic; negative rub or gallop GI GI: Positive normal bowel sounds Soft without distention Genitourinary: Positive deferred Musc Musculoskeletal: Positive in a wheelchair and kyphosis Skin Pulmonary Skin Exam: Positive intact; negative lesion, ulcers, dermal atrophy or rash Pulses Pulse: Yes Pedal pulses present: Extremities Extremities: No clubbing, No cyanosis, No edema Stigmata of osteoarthritis Neuro Neurologic: Yes conversant, Yes no focal neuro deficits, Yes cooperative, Yes understands questions Lymph Lymphatic: No lymphadenopathy Psych Appearance: Positive grossly normal Mental Status: Positive mental status grossly normal Mood: Positive congruent mood Affect: Positive normal affect Coding Level of Care Code Off vis,new,level 4 Diagnoses Sarcoidosis D86.9 07/02/17 1510 <Electronically signed by Portillo Garay DO> Date Portillo Garay DO Cosigner Signature: Date (if applicable) CC: Stephen Ramirez MD CARDIOLOGY VISIT Observed: 06/17/2017 Status: F Source: [place] RE[place] 12:04 PM [facility] REPOSITORY [facility] [address] [place] [address]. [address] [place] [address] OFFICE VISIT Date of Service: 06/16/17 MR#: [id number] Acct: [id number] Name: LIZETTE PRICE Rep #: [id number] : 1945 Provider: YAW Navas Age/Sex: 71/F Location: [facility] Status: Signed HPI HPI Details: LIZETTE PRICE, is a 71 F who presents to the office today for a cardiovascular outpatient follow-up. Patient is a history of hypertension, episodic supraventricular tachyarrhythmia, and valvular heart disease. She also had a non-ST elevation myocardial infarction in January 2015 related to blood loss anemia. Pt. denies arm, jaw, or neck discomfort. Her exercise tolerance is stable. Pt. denies symptoms of lightheadedness, dizziness, near syncope, or syncopal episodes. Pt. denies edema or claudication issues. Pt. denies orthopnea, PND, fever, chills, blood in urine, blood in stool, myalgia, or unexplainable fatigue. Pt. states having one episode while sitting 3/10 chest pain. This was brief. This resolved on its own. She denied any secondary symptoms during this. She states her breathing has changed and will be seeing a lgsw for her sarcoidosis. She states an episode in which her heart went fast. Pt. states her blood pressures readings at home have 140s- 160s as its highest and systolic in the 90s at its lowest. Intake Vital Signs06/16/17 Height 4 ft 11 in 06/16/17 Weight: 174 lb 06/16/17 Body Mass Index (BMI) 35.1 06/16/17 Blood Pressure 162/90 06/16/17 Blood Pressure Location Lt brachial Intake Visit Reasons: 6 M FU Digital Content Coordinator Required: No Accompanied by: Sister Is patient in pain?: No Allergies lisinopril Allergy (Verified 11/19/15 13:15) Angioedema amlodipine [From Norvasc] Adverse Reaction (Severe, Verified 06/12/17 09:52) Freezes up limbs nifedipine [From Nifedical XL] Adverse Reaction (Severe, Verified 06/12/17 09:52) Freezes up limbs alendronate sodium [From Fosamax] Adverse Reaction (Intermediate, Verified 06/12/17 09:51) GI upset codeine Adverse Reaction (Verified 11/19/15 13:15) Unknown ibuprofen Adverse Reaction (Verified 11/19/15 13:15) Other HCTA Adverse Reaction (Intermediate, Uncoded 06/12/17 09:52) Low sodium LIPITOR Adverse Reaction (Uncoded 07/15/16 00:12) Unknown Medications Cholecalciferol (VIT D3) [Vitamin D3] 5,000 unit PO DAILY 05/22/14 [History Confirmed 06/12/17] Vitamin B Complex 1 ea PO DAILY 05/22/14 [History Confirmed 06/12/17] Multivit with Calcium,Iron,Min [Multiple Vitamins For Women] 1 tab PO DAILY 02/16/15 [History Confirmed 06/12/17] Acetaminophen [Tylenol] 500 mg PO DAILY 07/15/16 [History Confirmed 06/16/17] Hydrocodone Bitart/Apap 5-325 [[place] 5/325] 1 tab PO Q4H PRN PRN #12 tab 07/15/16 [Rx] Lactulose [Chronulac] 20 gm PO DAILY PRN 07/15/16 [History Confirmed 06/12/17] magnesium 250 mg tablet 750 mg PO QHS tab 06/16/17 [History Confirmed 06/16/17] metoprolol succinate ER 25 mg tablet,extended release 24 hr 25 mg PO BID 06/16/17 [History Confirmed 06/16/17] Ejection fraction %: 65 to 70 PFSH Medical History Supraventricular tachycardia (Chronic) Palpitations (Chronic) Subsequent non-ST elevation (NSTEMI) myocardial infarction (Chronic) Aortic stenosis (Chronic) Hypertension (Chronic) Shortness of breath (Chronic) Surgical History History of arthroplasty of right knee (Resolved) Family History Father Hypertension Aortic aneurysm Mother Hypertension Sister Hypertension Social History Smoking Status: Never smoker alcohol intake: former year quit: 2014 substance use type: does not use caffeine: No what type of physical activity do you participate in: none seatbelt use: always do you feel safe at home: Yes ROS Const Const: Negative for fatigue, weakness, body ache, fever(s) or chills ENT ENT: Negative for dizziness Cardio Chest Pain: Yes Palpitations: Yes Edema: Bilateral Muscle aches with walking: None Resp Respiratory: Positive for SOB with activity; negative for SOB at rest, SOB orthopnea\SOB lying down or paroxysmal nocturnal dyspnea GI GI: Negative nausea, black,tarry stools, bright, red blood in stools or vomiting blood/hematemesis : Negative for hematuria or frequent nighttime urination/ nocturia Musc Musc: Negative for muscle aches/ myalgia Neuro Neuro: Negative for weakness, dizziness, lightheadedness, near syncope, syncope or orthostatic symptoms Endo Endo: Negative for fatigue Cardiology Exam Const Appearance: cooperative, healthy appearing, comfortable and no acute distress Orientation: alert, awake and oriented x3 Head Head: normal to inspection Mouth: oral mucosae normal Neck Neck: no JVD and normal visual inspection Carotids: normal carotid upstroke Chest Chest inspection: normal inspection of the chest and normal respiratory effort Auscultation: Bilateral: Clear to Auscultation Cardio Rate: regular rate Rhythm: regular rhythm Heart sounds: S2 normal; negative rub or gallop Murmur: Grade 2/6 and LLSB GI GI: normal to inspection Neuro General: alert, awake, oriented x3 and CN's II-XI intact bilaterally Skin Skin: no rashes or lesions noted Extremities Pulses: Normal: Right Posterior Tibial Pulse, Left Posterior Tibial Pulse, Right Radial Pulse, Left Radial Pulse Lower Extremity Edema: None: Bilateral Psych Psychological: normal affect Supplemental Info Stress test from January 2015 was negative for stress-induced myocardial ischemia. A previous small anterior septal infarct cannot completely be excluded and reported a preserved ejection fraction. Echocardiogram from January 2015 showed estimated ejection fraction of 65-70%, stage I diastolic dysfunction, RVSP of 29 mmHg, possible fusion of right and left coronary cusps, mild to moderate aortic stenosis with an aortic valve area of 1.2 cm . Assessment AND Plan 1. Essential hypertension I10 MAR Ley Patient's blood pressure continues to fluctuate. Her heart rate is on the lower end of expected range today in office. Thus her metoprolol will not be adjusted. She was asked to continue to monitor her blood pressure. 2. Valvular heart disease I38 MAR Ley Echocardiogram from January 2015 showed an estimated ejection fraction of 65-70% possible fusion of right and left coronary cusps, mild to moderate aortic stenosis with an aortic valve area of 1.2 cm . Patient denies any shortness of breath, syncope, or activity intolerance. She does acknowledge some shortness of breath which she has been evaluated by lgsw for. She was instructed that if pulmonology workup is negative or inconclusive that a repeat echocardiogram can be done to evaluate valvular status. She was instructed to contact our office after pulmonology office visit. 3. Ventricular tachyarrhythmia I47.2 MAR Ley Patient does state having 1 episodes in which her heart rate increased. Her heart rate is well controlled today in office. We will make a medication regimen change at this time. We will continue to monitor this. She will continue current beta- di medication. She did not undergo 30 day event monitor after last office visit. At this time there has been no pattern noted to her palpitations thus we will continue to monitor this. She is instructed to contact our office if she notices worsening palpitations. 4. Sarcoidosis D86.9 Plan - MAR Pizano Patient will follow up with pulmonology for this. Plan Detail Other Medications New: Discontinued: Additional Comments - MAR Pizano Discussed the above patient with Dr. Daniels, he agrees with the plan of care. Thank you for allowing us to participate in the patients plan of care, if you have any questions please do not hesitate to call. This note was generated using a voice recognition system and there may be incorrect words, spelling or punctuation that were not noted when reviewing the office note prior to saving. Follow Up 6 Months (COLLECTOR) Coding Level of Care Code Off vis,est,level 3 Diagnoses Essential hypertension I10 Hypertension type: essential hypertension Valvular heart disease I38 Ventricular tachyarrhythmia I47.2 Sarcoidosis D86.9 Coding Level of Care Code Off vis,est,level 3 Diagnoses Essential hypertension I10 Hypertension type: essential hypertension Valvular heart disease I38 Ventricular tachyarrhythmia I47.2 Sarcoidosis D86.9 06/16/17 1708 <Electronically signed by Mario BROC> Date Mario BROC 06/17/17 1204<Electronically signed by Bret Daniels MD> Cosigner Signature: Date (if applicable) Bret Daniels MD CC: Stephen SIU Observed: 06/05/2017 Status: COMPLETED Source: [place] 12:00 AM [facility] REPOSITORY [facility] KEKELIZETTE MARTINEZ ([id number]) 1945 F Date Time Provider Department 06/05/17 STEPHEN RAMIREZ During your visit today, we recorded the following information about you: Aziza Burleson, RN, RN 06/05/2017 3:11 PM Signed Pt called requesting a referral for a Aeronautical Engineering Teacher a Dr Neville Garay at [facility] for pt sarcoidosis. BC Puente, SALES ENGINEER 06/05/2017 4:13 PM Signed Consult placed, please process. Sola Hotte SALES VICE PRESIDENT 06/05/2017 4:53 PM Signed Encounter routed to Wood Ski Maker to assist patient in scheduling appointment with Aeronautical Engineering Teacher Dr. Neville Watkins Psr 06/10/2017 3:42 PM Signed Patient scheduled for July [address] Neville Garay. Patient voiced understanding. Allergies As of Date: 06/05/2017 Noted Allergy Reaction LISINOPRIL 01/23/2012 7 - Swelling 10 - Anaphylaxis Comments: Face, mouth, and tongue. CODEINE 11/01/2008 5 - Intolerance Comments: Headache FOSAMAX (ALENDRONATE) 04/19/2014 14 - Other: See Comments Comments: GI upset IBUPROFEN 03/08/2005 8 - GI Upset Comments: Epigastric pain. In higher dose. LIPITOR (ATORVASTATIN) 07/05/2015 5 - Intolerance Comments: complained of weakness of legs Date Reviewed: 05/13/2017 Reviewed by: Shannon Richard - Fully Assessed Reason for Visit: Referral Request [[id number]] Primary Visit Diagnosis:Sarcoid (HCC) [D86.9] Order(s):CONSULT TO PULM/CRITICAL CARE [[id number]] Order #: [id number]: 1 Prescriptions as of 06/05/2017 Sig: METOPROLOL SUCCINATE ER 25 MG* Take 1 tablet by mouth twice * CHOLECALCIFEROL (VITAMIN D3) * Take 5,000 Units by mouth onc* COMPOUNDED PRESCRIPTION Viki microbial defense* OTC NUTRITIONAL SUPPLEMENT zypan supplement COMPOUNDED PRESCRIPTION Home Health cataract lens generator, ai* ACETAMINOPHEN 500 MG TABLET Take 1 tablet by mouth every * MAGNESIUM 250 MG TABLET Take 1,000 mg by mouth. * MULTIVITAMIN TABLET Take one(1) tablet daily. Problem List As Of Date 06/05/2017 Noted Resolved Essential hypertension [I10] INVALID FOR* Malaise and fatigue [R53.81, R53.83] INVALID FOR* Other and unspecified hyperlipidemia [E78.5] INVALID FOR*07/30/2012 INT HEMORRHOID W/O COMPL [K64.8] INVALID FOR* Unspecified constipation [K59.00] INVALID FOR*02/19/2012 GASTROINTEST HEMORR NOS [K92.2] INVALID FOR* MYALGIA AND MYOSITIS NOS [[id number]] INVALID FOR* CONGENITAL PES PLANUS [Q66.50] INVALID FOR* Tibialis Tendinitis [M76.829] INVALID FOR* Generalized Osteoarthrosis, Unspecified Site [M*INVALID FOR* Contact Dermatitis and Other Eczema, due to Uns*INVALID FOR* Morbid obesity with BMI of 40.0-44.9, adult (HC* 01/25/2016 Low back pain [M54.5] INVALID FOR* Numbness and tingling in hands [R20.0, R20.2] INVALID FOR* Spinal cord lesion (HCC) [G95.9] INVALID FOR* Neck pain [M54.2] INVALID FOR* Gait instability [R26.81] INVALID FOR* Myelopathy (HCC) [G95.9] INVALID FOR* Closed spondylolysis fracture of lumbar vertebr*INVALID FOR* Spondylolisthesis, grade 3 [M43.19] INVALID FOR* Abnormality of gait [R26.9] INVALID FOR* Muscle weakness (generalized) [M62.81] INVALID FOR* Angioedema [T78.3XXA] INVALID FOR* More... Special screening for malignant neoplasms, colo*INVALID FOR* Gastroparesis [K31.84] More... Ischial bursitis of right side [M70.71] INVALID FOR* Gastric ulcer without hemorrhage or perforation*INVALID FOR*05/11/2015 Sarcoidosis (HCC) [D86.9] Balance problem [R26.89] INVALID FOR* Chronic cholecystitis with calculus [K80.10] INVALID FOR* Chronic right-sided low back pain with right-si*INVALID FOR* Sacroiliac pain [M53.3] INVALID FOR* Encounter Status:Closed by KELLY ELLSWORTH LPN on 06/09/17 PROGRESS Observed: 05/23/2017 Status: COMPLETED Source: [place] 1:31 PM [facility] REPOSITORY HNO ID: [id number] Author: Sonia Hughes LPN Service: (none) Author Type: (none) Type: Progress Notes Filed: 05/23/2017 1:47 PM Note Text: Manual Readin/98 Pulse: 60 BP Rodney average: 157/91 P: 62 Reason for blood pressure check - Last BP elevated Patient is: Taking medication as prescribed Yes Took medication today Yes If no, date medication last taken N/A Experiencing side effects No BP was elevated at last appt 05/13/17. No BP medication changes were made at that time. Taking all medications as prescribed. Denies any chest pain, shortness of breath, or headaches. Does report a fainting sensation when she gets up and goes to walk. No caffeine use. No personal history of tobacco use; no current exposure. Alert and oriented. Pt has been identified by name and birthdate: Yes Allergies reviewed: Yes Latex allergy: no. Medication - prescribed and OTC reviewed and updated: Yes Do you need any prescription refills prior to your next visit: No Health Maintenance: Reviewed and up to date Patient advised that she would be contacted after review by PCP. Sonia Hughes LPN PROGRESS Observed: 05/13/2017 Status: COMPLETED Source: [place] 2:51 PM [facility] REPOSITORY HNO ID: [id number] Author: Stephen Ramirez Service: (none) Author Type: Physician Type: Progress Notes Filed: 05/30/2017 1:28 AM Note Text: Patient presents with: 3 mo f/up SUBJECTIVE: Lizette Price is a 71 year old year old lady here today for 3 month follow up appointment for review of medical conditions. pain in back Spasms down legs affects balance Avoids meds of dizziness and adverse effects Ongoing urinary urgency and nocturia. Also loose runny stools. Sees chiropractor PAST MEDICAL HISTORY Diagnosis Date - Blood type O+ - Compression fracture of thoracic vertebra (HCC) - DDD (degenerative disc disease), cervical MRI scanned into Epic January 11, 2014 ([facility]) - DDD (degenerative disc disease), lumbosacral - Essential hypertension, benign Dr. Daniels - Gastroparesis Mild to moderate--test done 09/2014 - Generalized OA - Heart attack - Hemorrhage of gastrointestinal tract 01/2015 EGD huge ulcer 01/2015 all cleared 03/2015, Edis Angeles MD - Hemorrhage of gastrointestinal tract, unspecified 03/08/2005 - Internal hemorrhoids without mention of complication 03/08/2005 - Morbid obesity with BMI of 40.0-44.9, adult (HCC) - Sarcoidosis (HCC) - SCC (squamous cell carcinoma), leg 09/28/[address] Joe Dhillon on left goodwin - Snoring - Unspecified constipation 03/08/2005 Current Outpatient Prescriptions: metoprolol succinate ER (TOPROL XL) 25 mg 24 hr tablet Take 1 tablet by mouth twice daily. (prescribed by Dr. Daniels) Cholecalciferol, Vitamin D3, (VITAMIN D-3) 5,000 unit tab Take 5,000 Units by mouth once daily. COMPOUNDED PRESCRIPTION [employer] defense 17 drops daily and working up to 60 drops daily (in divided doses). Serving size 30 drops. Mineral water and ethanol 20-24%) OTC NUTRITIONAL SUPPLEMENT zypan supplement COMPOUNDED PRESCRIPTION Home Health cataract lens generator, aide, PT.Dx: Bilat sprained ankles, gait instability. acetaminophen (TYLENOL EXTRA STRENGTH) 500 mg tablet Take 1 tablet by mouth every 6 hours as needed for Pain. Magnesium 250 mg tab Take 1,000 mg by mouth. MULTIVITAMIN TAB Take one(1) tablet daily. No current facility-administered medications for this visit. PAST SURGICAL HISTORY Procedure Laterality Date - COLONOSCOP W/ OR W/O [facility] SPEC 11/24/2000 Colonoscopy - COLONOSCOP W/ OR W/O [facility] SPEC 10/06/2014 Colonoscopy - EGD W/O OR W/BRUSH/WASH 12/31/13 EGD - EGD W/O OR W/BRUSH/WASH 02/16/15 EGD [facility] inpt - EGD W/O OR W/BRUSH/WASH 05/11/15 EGD - EXTRACTION ERUPTED TOOTH/EXR 1970's [place] teeth - FOOT RIGHT OP SURGERY 01/2009 - PAST SURGICAL HISTORY OF 1995 Bone fusion 1st MT and pin right foot - PAST SURGICAL HISTORY OF 01/2013 left carpal tunnel surgery - PAST SURGICAL HISTORY OF right Lasik 2001 - PAST SURGICAL HISTORY OF 09/13 Skin Ca from [place] - REMOVAL OF TONSILS,<12 Y/O Tonsillectomy - TOTAL KNEE REPLACEMENT 11/05/2004 Knee replacement, total left - TOTAL KNEE REPLACEMENT 07/2010 right knee OBJECTIVE: BP 174/98 (BP Site: Left Arm, BP Position: Sitting, BP Cuff Size: Regular Adult) Pulse 64 Temp 37.1 ?C (98.7 ?F) (Temporal Artery) Resp 16 Wt 75.8 kg (167 lb) BMI 37.44 kg/m2 Patient is alert, oriented times 3, no apparent distress, affect is bright, reactive. Last 5 Encounter BP Readings: Date: BP: 05/13/2017 174/98 12/23/2016 130/82 11/01/2016 148/82 09/30/2016 165/92[BP Rodney average[ 09/16/2016 170/90 Last 5 Encounter Wt Readings: Date: Wt: 05/13/2017 75.8 kg (167 lb) 11/01/2016 78 kg (172 lb) 09/16/2016 78.5 kg (173 lb) 07/31/2016 76.7 kg (169 lb) 05/01/2016 77.1 kg (170 lb) Heart: Regular rate, rhythm, no murmurs, gallops, rubs. Lungs: Clear to auscultation, bilaterally, breathing non labored. Ext: No cyanosis, clubbing, or edema. Component Latest Ref Rng AND Units 07/25/2016 10/25/2016 05/02/2017 WBC 3.70 - 11.00 k/uL 5.82 6.80 RBC 3.90 - 5.20 m/uL 4.41 4.27 Hemoglobin 11.5 - 15.5 g/dL 14.0 13.5 Hematocrit 36.0 - 46.0 % 44.3 43.4 MCV 80.0 - 100.0 fL 100.5 (H) 101.6 (H) MCH 26.0 - 34.0 pG 31.7 31.6 MCHC 30.5 - 36.0 g/dL 31.6 31.1 RDW-CV 11.5 - 15.0 % 12.9 13.4 Platelet Count 150 - 400 k/uL 267 255 MPV 9.0 - 12.7 fL 10.0 10.1 Neut% % 63.0 Abs Neut (ANC) 1.45 - 7.50 k/uL 3.66 Lymph% % 25.9 Abs Lymph 1.00 - 4.00 k/uL 1.51 Ransom% % 9.1 Abs Ransom 0.00 - 0.86 k/uL 0.53 Eosin% % 1.5 Abs Eosin 0.00 - 0.45 k/uL 0.09 Baso% % 0.5 Abs Baso 0.00 - 0.10 k/uL 0.03 Nucleated Reds 0 /100 WBC 0.0 Absolute nRBC 0.00 k/uL 0.00 0.00 Diff Type Auto Diff Protein, Total 6.3 - 8.0 g/dL 7.4 Albumin 3.9 - 4.9 g/dL 3.9 Calcium 8.5 - 10.2 mg/dL 9.3 9.5 9.5 Bilirubin, Total 0.2 - 1.3 mg/dL 0.4 Alkaline Phosphatase 32 - 117 U/L 97 AST 13 - 35 U/L 23 Glucose 74 - 99 mg/dL 92 95 94 BUN 7 - 21 mg/dL 12 10 15 Creatinine 0.58 - 0.96 mg/dL 0.72 0.67 0.74 Sodium 136 - 144 mmol/L 133 (L) 141 143 Potassium 3.7 - 5.1 mmol/L 4.2 4.2 4.4 Chloride 97 - 105 mmol/L 94 (L) 102 103 CO2 22 - 30 mmol/L 24 24 26 Anion Gap 9 - 18 mmol/L 15 15 14 ALT 7 - 38 U/L 16 eGFR- >60 >60 >60 eGFR-All Other Races . >60 >60 >60 Triglyceride <150 mg/dL 77 73 Cholesterol, Total <200 mg/dL 158 169 HDL Cholesterol >39 mg/dL 47 (L) 31 (L) VLDL Cholesterol <30 mg/dL 15 15 LDL Cholesterol <100 mg/dL 96 123 (H) Fasting Time hrs 12 12 TC:HDL Ratio <5.10 3.36 5.45 (H) LDL:HDL Ratio <2.54 2.04 3.97 (H) Non HDL Cholesterol <130 mg/dL 111 138 (H) Hemoglobin A1C 4.3 - 5.6 % 5.7 (H) Estimated Average Glucose mg/dL 117 Magnesium 1.7 - 2.3 mg/dL 2.4 (H) Vitamin D 25 Hydroxy 31.0 - 80.0 ng/mL 69.0 Vitamin B12 232 - 1245 pg/mL 975 ASSESSMENT AND PLAN: Encounter Diagnosis ICD-10-CM 1. Edema of both lower legs due to peripheral venous insufficiency I87.2 R60.9 2. Nocturia R35.1 3. Spondylolisthesis, grade 3 M43.19 4. Essential hypertension I10 5. Gait instability R26.81 6. Spinal cord lesion (HCC) G95.9 Above issues addressed with patient. Patient involved in shared decision making for management of her medical issues. History and medications reviewed. Epic updated as needed Refills taken care of and meds adjusted as indicated after reviewed history, exam and labs. Health Maintenance reviewed. Updated record and/or ordered tests as recorded. Encouraged on efforts at healthy diet and regular exercise and adequate sleep. Needs to keep working on diet and exercise with lifestyle changes for effective weight loss. Also to help with strength and balance. Complicated medical issues. The majority of the visit was spent counseling and/or coordinating care for the patient. Ebkb-pt-vggz time was at least 25 minutes. Stephen Ramirez MD CNOV Observed: 05/13/2017 Status: COMPLETED Source: [place] 2:20 PM [facility] REPOSITORY Office Visit (INTMWS) LIZETTE PRICE ([id number]) 1945 F Date Time Provider Department 05/13/17 2:20 PM STEPHEN RAMIREZ INTMWS During your visit today, we recorded the following information about you: Temperature Pulse Respiration Blood pressure 98.7 degrees 64/minute 16/minute 190/110 Weight 75.8 kg Stephen Ramirez MD 05/30/2017 1:28 AM Signed Patient presents with: 3 mo f/up SUBJECTIVE: Lizette Price is a 71 year old year old lady here today for 3 month follow up appointment for review of medical conditions. pain in back Spasms down legs affects balance Avoids meds of dizziness and adverse effects Ongoing urinary urgency and nocturia. Also loose runny stools. Sees chiropractor PAST MEDICAL HISTORY Diagnosis Date - Blood type O+ - Compression fracture of thoracic vertebra (HCC) - DDD (degenerative disc disease), cervical MRI scanned into [facility] January 11, 2014 ([facility]) - DDD (degenerative disc disease), lumbosacral - Essential hypertension, benign Dr. Daniels - Gastroparesis Mild to moderate--test done 09/2014 - Generalized OA - Heart attack - Hemorrhage of gastrointestinal tract 01/2015 EGD ANDquot;huge ulcerANDquot; 01/2015 all cleared 03/2015, Edis Angeles MD - Hemorrhage of gastrointestinal tract, unspecified 03/08/2005 - Internal hemorrhoids without mention of complication 03/08/2005 - Morbid obesity with BMI of 40.0-44.9, adult (HCC) - Sarcoidosis (HCC) - SCC (squamous cell carcinoma), leg 09/28/[address] Joe Dhillon on left goodwin - Snoring - Unspecified constipation 03/08/2005 Current Outpatient Prescriptions: metoprolol succinate ER (TOPROL XL) 25 mg 24 hr tablet Take 1 tablet by mouth twice daily. (prescribed by Dr. Daniels) Cholecalciferol, Vitamin D3, (VITAMIN D-3) 5,000 unit tab Take 5,000 Units by mouth once daily. COMPOUNDED PRESCRIPTION [employer] defense 17 drops daily and working up to 60 drops daily (in divided doses). Serving size 30 drops. Mineral water and ethanol 20-24%) OTC NUTRITIONAL SUPPLEMENT zypan supplement COMPOUNDED PRESCRIPTION Home Health cataract lens generator, aide, PT.Dx: Bilat sprained ankles, gait instability. acetaminophen (TYLENOL EXTRA STRENGTH) 500 mg tablet Take 1 tablet by mouth every 6 hours as needed for Pain. Magnesium 250 mg tab Take 1,000 mg by mouth. MULTIVITAMIN TAB Take one(1) tablet daily. No current facility-administered medications for this visit. PAST SURGICAL HISTORY Procedure Laterality Date - COLONOSCOP W/ OR W/O [facility] SPEC 11/24/2000 Colonoscopy - COLONOSCOP W/ OR W/O [facility] SPEC 10/06/2014 Colonoscopy - EGD W/O OR W/BRUSH/WASH 12/31/13 EGD - EGD W/O OR W/BRUSH/WASH 02/16/15 EGD [facility] inpt - EGD W/O OR W/BRUSH/WASH 05/11/15 EGD - EXTRACTION ERUPTED TOOTH/EXR 1970's [place] teeth - FOOT RIGHT OP SURGERY 01/2009 - PAST SURGICAL HISTORY OF 1995 Bone fusion 1st MT and pin right foot - PAST SURGICAL HISTORY OF 01/2013 left carpal tunnel surgery - PAST SURGICAL HISTORY OF right Lasik 2001 - PAST SURGICAL HISTORY OF 09/13 Skin Ca from [facility] [place] - REMOVAL OF TONSILS,ANDlt;12 Y/O Tonsillectomy - TOTAL KNEE REPLACEMENT 11/05/2004 Knee replacement, total left - TOTAL KNEE REPLACEMENT 07/2010 right knee OBJECTIVE: BP 174/98 (BP Site: Left Arm, BP Position: Sitting, BP Cuff Size: Regular Adult) Pulse 64 Temp 37.1 ?C (98.7 ?F) (Temporal Artery) Resp 16 Wt 75.8 kg (167 lb) BMI 37.44 kg/m2 Patient is alert, oriented times 3, no apparent distress, affect is bright, reactive. Last 5 Encounter BP Readings: Date: BP: 05/13/2017 174/98 12/23/2016 130/82 11/01/2016 148/82 09/30/2016 165/92[BP Rodney average[ 09/16/2016 170/90 Last 5 Encounter Wt Readings: Date: Wt: 05/13/2017 75.8 kg (167 lb) 11/01/2016 78 kg (172 lb) 09/16/2016 78.5 kg (173 lb) 07/31/2016 76.7 kg (169 lb) 05/01/2016 77.1 kg (170 lb) Heart: Regular rate, rhythm, no murmurs, gallops, rubs. Lungs: Clear to auscultation, bilaterally, breathing non labored. Ext: No cyanosis, clubbing, or edema. Component Latest Ref Rng ANDamp; Units 07/25/2016 10/25/2016 05/02/2017 WBC 3.70 - 11.00 k/uL 5.82 6.80 RBC 3.90 - 5.20 m/uL 4.41 4.27 Hemoglobin 11.5 - 15.5 g/dL 14.0 13.5 Hematocrit 36.0 - 46.0 % 44.3 43.4 MCV 80.0 - 100.0 fL 100.5 (H) 101.6 (H) MCH 26.0 - 34.0 pG 31.7 31.6 MCHC 30.5 - 36.0 g/dL 31.6 31.1 RDW-CV 11.5 - 15.0 % 12.9 13.4 Platelet Count 150 - 400 k/uL 267 255 MPV 9.0 - 12.7 fL 10.0 10.1 Neut% % 63.0 Abs Neut (ANC) 1.45 - 7.50 k/uL 3.66 Lymph% % 25.9 Abs Lymph 1.00 - 4.00 k/uL 1.51 Ransom% % 9.1 Abs Ransom 0.00 - 0.86 k/uL 0.53 Eosin% % 1.5 Abs Eosin 0.00 - 0.45 k/uL 0.09 Baso% % 0.5 Abs Baso 0.00 - 0.10 k/uL 0.03 Nucleated Reds 0 /100 WBC 0.0 Absolute nRBC 0.00 k/uL 0.00 0.00 Diff Type Auto Diff Protein, Total 6.3 - 8.0 g/dL 7.4 Albumin 3.9 - 4.9 g/dL 3.9 Calcium 8.5 - 10.2 mg/dL 9.3 9.5 9.5 Bilirubin, Total 0.2 - 1.3 mg/dL 0.4 Alkaline Phosphatase 32 - 117 U/L 97 AST 13 - 35 U/L 23 Glucose 74 - 99 mg/dL 92 95 94 BUN 7 - 21 mg/dL 12 10 15 Creatinine 0.58 - 0.96 mg/dL 0.72 0.67 0.74 Sodium 136 - 144 mmol/L 133 (L) 141 143 Potassium 3.7 - 5.1 mmol/L 4.2 4.2 4.4 Chloride 97 - 105 mmol/L 94 (L) 102 103 CO2 22 - 30 mmol/L 24 24 26 Anion Gap 9 - 18 mmol/L 15 15 14 ALT 7 - 38 U/L 16 eGFR- ANDgt;60 ANDgt;60 ANDgt;60 eGFR-All Other Races . ANDgt;60 ANDgt;60 ANDgt;60 Triglyceride ANDlt;150 mg/dL 77 73 Cholesterol, Total ANDlt;200 mg/dL 158 169 HDL Cholesterol ANDgt;39 mg/dL 47 (L) 31 (L) VLDL Cholesterol ANDlt;30 mg/dL 15 15 LDL Cholesterol ANDlt;100 mg/dL 96 123 (H) Fasting Time hrs 12 12 TC:HDL Ratio ANDlt;5.10 3.36 5.45 (H) LDL:HDL Ratio ANDlt;2.54 2.04 3.97 (H) Non HDL Cholesterol ANDlt;130 mg/dL 111 138 (H) Hemoglobin A1C 4.3 - 5.6 % 5.7 (H) Estimated Average Glucose mg/dL 117 Magnesium 1.7 - 2.3 mg/dL 2.4 (H) Vitamin D 25 Hydroxy 31.0 - 80.0 ng/mL 69.0 Vitamin B12 232 - 1245 pg/mL 975 ASSESSMENT AND PLAN: Encounter Diagnosis ICD-10-CM 1. Edema of both lower legs due to peripheral venous insufficiency I87.2 R60.9 2. Nocturia R35.1 3. Spondylolisthesis, grade 3 M43.19 4. Essential hypertension I10 5. Gait instability R26.81 6. Spinal cord lesion (HCC) G95.9 Above issues addressed with patient. Patient involved in shared decision making for management of her medical issues. History and medications reviewed. Epic updated as needed Refills taken care of and meds adjusted as indicated after reviewed history, exam and labs. Health Maintenance reviewed. Updated record and/or ordered tests as recorded. Encouraged on efforts at healthy diet and regular exercise and adequate sleep. Needs to keep working on diet and exercise with lifestyle changes for effective weight loss. Also to help with strength and balance. Complicated medical issues. The majority of the visit was spent counseling and/or coordinating care for the patient. Ajwn-tf-pquc time was at least 25 minutes. MD Stephen Arce MD 05/13/2017 3:[address] Lieberman--pain management Turmeric Chondroitin, Glucosamine Probiotics Referring Provider: STEPHEN RAMIREZ [[id number]] Allergies As of Date: 05/13/2017 Noted Allergy Reaction LISINOPRIL 01/23/2012 7 - Swelling 10 - Anaphylaxis Comments: Face, mouth, and tongue. CODEINE 11/01/2008 5 - Intolerance Comments: Headache FOSAMAX (ALENDRONATE) 04/19/2014 14 - Other: See Comments Comments: GI upset IBUPROFEN 03/08/2005 8 - GI Upset Comments: Epigastric pain. In higher dose. LIPITOR (ATORVASTATIN) 07/05/2015 5 - Intolerance Comments: complained of weakness of legs Date Reviewed: 05/13/2017 Reviewed by: Shannon Richard - Fully Assessed Reason for Visit: 3 mo f/up [Other] Primary Visit Diagnosis:Edema of both lower legs due to peripheral venous insufficiency [I87.2, R60.9] Other Visit Diagnoses:Nocturia [R35.1] Spondylolisthesis, grade 3 [M43.19] Essential hypertension [I10] Gait instability [R26.81] Spinal cord lesion (HCC) [G95.9] Encounter for long-term current use of medication [Z79.899] Order(s):COMP METABOLIC PANEL [SQCMP] Order #: [id number] FUTURE Prescriptions as of 05/13/2017 Sig: METOPROLOL SUCCINATE ER 25 MG* Take 1 tablet by mouth twice * CHOLECALCIFEROL (VITAMIN D3) * Take 5,000 Units by mouth onc* COMPOUNDED PRESCRIPTION [facility]* OTC NUTRITIONAL SUPPLEMENT zypan supplement COMPOUNDED PRESCRIPTION Home Health cataract lens generator, ai* ACETAMINOPHEN 500 MG TABLET Take 1 tablet by mouth every * MAGNESIUM 250 MG TABLET Take 1,000 mg by mouth. * MULTIVITAMIN TABLET Take one(1) tablet daily. Medication notes this encounter HYDROCODONE 5 MG-ACETAMINOPHEN 325 MG TABLET >> Shannon Richard 05/13/2017 2:39 PM >> SHANNON RICHARD May 13, 2017 2:39 PM Not taking TIZANIDINE 2 MG TABLET >> Shannon Richard 05/13/2017 2:39 PM >> SHANNON RICHARD May 13, 2017 2:39 PM Not taking Problem List As Of Date 05/13/2017 Noted Resolved Essential hypertension [I10] INVALID FOR* Malaise and fatigue [R53.81, R53.83] INVALID FOR* Other and unspecified hyperlipidemia [E78.5] INVALID FOR*07/30/2012 INT HEMORRHOID W/O COMPL [K64.8] INVALID FOR* Unspecified constipation [K59.00] INVALID FOR*02/19/2012 GASTROINTEST HEMORR NOS [K92.2] INVALID FOR* MYALGIA AND MYOSITIS NOS [[id number]] INVALID FOR* CONGENITAL PES PLANUS [Q66.50] INVALID FOR* Tibialis Tendinitis [M76.829] INVALID FOR* Generalized Osteoarthrosis, Unspecified Site [M*INVALID FOR* Contact Dermatitis and Other Eczema, due to Uns*INVALID FOR* Morbid obesity with BMI of 40.0-44.9, adult (HC* 01/25/2016 Low back pain [M54.5] INVALID FOR* Numbness and tingling in hands [R20.0, R20.2] INVALID FOR* Spinal cord lesion (HCC) [G95.9] INVALID FOR* Neck pain [M54.2] INVALID FOR* Gait instability [R26.81] INVALID FOR* Myelopathy (HCC) [G95.9] INVALID FOR* Closed spondylolysis fracture of lumbar vertebr*INVALID FOR* Spondylolisthesis, grade 3 [M43.19] INVALID FOR* Abnormality of gait [R26.9] INVALID FOR* Muscle weakness (generalized) [M62.81] INVALID FOR* Angioedema [T78.3XXA] INVALID FOR* More... Special screening for malignant neoplasms, colo*INVALID FOR* Gastroparesis [K31.84] More... Ischial bursitis of right side [M70.71] INVALID FOR* Gastric ulcer without hemorrhage or perforation*INVALID FOR*05/11/2015 Sarcoidosis (HCC) [D86.9] Balance problem [R26.89] INVALID FOR* Chronic cholecystitis with calculus [K80.10] INVALID FOR* Chronic right-sided low back pain with right-si*INVALID FOR* Sacroiliac pain [M53.3] INVALID FOR* Other instructions from your clinician: Dr. Lieberman--pain management Turmeric Chondroitin, Glucosamine Probiotics Medications Discontinued During This Encounter tiZANidine (ZANAFLEX) 2 mg tablet 30 t* 0 07/22/2016 05/13/2017 Route: ORAL Sig: Take 1 tablet by mouth every 6 hours as needed. Disc: Reason for discontinue is not on file. HYDROcodone-acetaminophen (NORCO) 5-* 30 t* 0 07/22/2016 05/13/2017 Class: Print RX Route: ORAL Sig: Take 1 tablet by mouth every 6 hours as needed. Disc: Reason for discontinue is not on file. Disposition: Return for 3 months follow up (make next 2 appointments). Follow-up and Disposition History Recorded Encounter Status:Closed by STEPHEN RAMIREZ MD on 05/30/17 URINALYSIS WITH Collected: 05/02/2017 Status: F Source: [facility] 10:13 AM [facility] REPOSITORY TYPE CODE TESTS RESULT OUT OF REFERENCE UNITS RANGE LAB UCOL Yellow Color Yellow LAB [facility] Clear Clarity Clear LAB UGLUC Negative mg/dL Glucose, Urine Negative LAB UBIL Negative Bilirubin, Urine Negative LAB UKET Negative Ketones, Urine Negative LAB USPG 1.005-1.030 Specific [place], Ur 1.013 LAB UHGB Negative Hemoglobin/Blood, Negative Ur LAB UPH 4.5-8.0 pH 7.0 LAB UPROT Negative mg/dL Protein, Urine Negative LAB UUROB Normal Urobilinogen Normal LAB UNITR Negative Nitrites Negative LAB ULKEST Negative Leukest Negative LAB UCOM Comments SEE COMMENT Result Comment: N/A LAB UMCOM Urine SEE Humberto Comment COMMENT Result Comment: N/A LAB UWBC 0-5 /HPF WBC 0-5 LAB URBC 0-3 /HPF RBC 0-3 LAB UEPI /HPF Epithelial SEE Cells COMMENT Result Comment: Few Squamous Epithelial Cells Performed By: #### UAWMIC #### [facility] [employer] [address] [place] [address] Observed: 05/02/2017 Status: F Source: [place] URINE CULTURE 10:13 AM [facility] REPOSITORY Sp. Request/Comment: - Specimen received in preservative Culture Result - 10,000 - <50,000 CFU/ml Normal urogenital mario Performed By: #### URCUL #### [facility] [address] [place] [address] VITAMIN D 25 HYDROXY Collected: 05/02/2017 Status: F Source: [place] 10:09 AM [facility] REPOSITORY TYPE CODE TESTS RESULT OUT OF REFERENCE UNITS RANGE LAB VITD 31.0-80.0 ng/mL Vitamin D 25 69.0 Hydroxy Result Comment: Classification of 25 [place] Vitamin D status: Insufficiency/Moderate Deficiency: < or = 30 ng/mL Sufficiency/Optimal Levels: 31 to 80 ng/mL Toxicity: > 100 ng/mL Test performed by chemiluminescent immunoassay. Performed By: #### VITD, BMP, LIPB, B12 #### [facility] [address] [place] [id number] BASIC METABOLIC PANL Collected: 05/02/2017 Status: F Source: [place] 10:09 AM [facility] REPOSITORY TYPE CODE TESTS RESULT OUT OF REFERENCE UNITS RANGE LAB GLU 74-99 mg/dL Glucose 94 Result Comment: The [place] [employer] (ADA) provides guidance for cutoff values for fasting glucose and random glucose. The ADA defines fasting as no caloric intake for at least 8 hours. Fas ting plasma glucose results between 100 to 125 mg/dL indicate increased risk for diabetes (prediabetes). Fasting plasma glucose results greater than or equal to 126 mg/dL meet the criteria for diagnosis of diabetes. In the absence of unequivocal hyperglycemia, results should be confirmed by repeat testing. In a patient with classic symptoms of hyperglycemia or hyperglycemic crisis, random plasma glucose results greater than or equal to 200 mg/dL meet the criteria for diagnosis of diabetes. Reference: Standards of Medical Care in Diabetes 2016, [place] [employer]. Diabetes Care. 2016.39(Suppl 1). LAB BUN 7-21 mg/dL BUN 15 LAB CRET 0.58-0.96 mg/dL Creatinine 0.74 LAB NA 136-144 mmol/L Sodium 143 LAB K 3.7-5.1 mmol/L Potassium 4.4 LAB CL 97-105 mmol/L Chloride 103 LAB CO2 22-30 mmol/L CO2 26 LAB AGAP 9-18 mmol/L Anion Gap 14 LAB CA 8.5-10.2 mg/dL Calcium, Total 9.5 LAB GFRAA eGFR- Amer. >60 LAB GFRNAA . eGFR-All Other Races >60 Result Comment: eGFR (Estimated GFR) Units of measure: mL/min/1.73 meters squared eGFR is derived from the reexpressed MDRD Study equation using the following parameters: serum creatinine, age, gender and race. The creatinine assay has been calibrated to be traceable to IDMS. An eGFR <60 mL/min/1.73m2 for >3 months is consistent with chronic kidney disease. Refer to KDOQI guidelines for clinical interpretation. In patients with unstable renal function, e.g. those with acute kidney injury, the eGFR may not accurately reflect actual GFR. Performed By: #### VITD, BMP, LIPB, B12 #### [facility] [employer] [address] [place], [place] [address] LIPID PANEL, BASIC Collected: 05/02/2017 Status: F Source: [place] 10:09 AM [facility] REPOSITORY TYPE CODE TESTS RESULT OUT OF REFERENCE UNITS RANGE LAB CHOL <200 mg/dL Cholesterol 169 Result Comment: <200 mg/dL, Desirable 200-239 mg/dL, Borderline high >239 mg/dL, High LAB TRIGLY <150 mg/dL Triglyceride 73 Result Comment: <150 mg/dL, Normal 150-199 mg/dL, Borderline high 200-499 mg/dL, High >499 mg/dL, Very high LAB HDL >39 mg/dL HDL-Cholesterol Low 31 Result Comment: 40-59 mg/dL, Acceptable >59 mg/dL, High: Negative risk factor for coronary heart disease <40 mg/dL, Low: Positive risk factor for coronary heart disease LAB LDL <100 mg/dL LDL-Cholesterol High 123 Result Comment: <100 mg/dL, Optimal 100-129 mg/dL, Near optimal/above optimal 130-159 mg/dL, Borderline high 160-189 mg/dL, High >189 mg/dL, Very high Secondary prevention optimal LDL Cholesterol levels are recommended to be < 70 mg/dL LAB NONHDL <130 mg/dL Non HDL High Cholesterol 138 Result Comment: <130 mg/dL, Optimal 130-159 mg/dL, Near optimal/above optimal 160-189 mg/dL, Borderline high 190-219 mg/dL, High >219 mg/dL, Very high Secondary prevention optimal non HDL Cholesterol levels are recommended to be < 100 mg/dL LAB FT hrs Fasting Time 12 LAB VLDL <30 mg/dL VLDL Cholesterol 15 LAB TCHDL <5.10 High TC:HDL Ratio 5.45 LAB LDLHDL <2.54 High LDL:HDL Ratio 3.97 Result Comment: Reference: 1. National Cholesterol Education Program ATP III Guideline At-A-Glance Quick Desk Reference: National Heart, Lung, and Blood [place]. National Institutes of Health. 2001: NIH Publication No. 01-3305. 2. An International Atherosclerosis Society position paper: global recommendations for the management of dyslipidemia: executive summary, Atherosclerosis. 2014: 232(2):410-413. Performed By: #### VITD, BMP, LIPB, B12 #### [facility] [address] [place], [place] [address] VITAMIN B12 Collected: 05/02/2017 Status: F Source: [place] 10:09 AM [facility] REPOSITORY TYPE CODE TESTS RESULT OUT OF REFERENCE UNITS RANGE LAB B12 232-1245 pg/mL Vitamin B12 975 Performed By: #### VITD, BMP, LIPB, B12 #### [facility] [address] [place], [place] [address] ALLERGIES ALLERGIES DATE TYPE / CODE NAME / CODE REACTION SEVERITY SOURCE Drug lisinopril/Q27380 Angioedema Unknown [place] 8 Allergy/123909984( 0658(RXNORM) Community SNOM[facility] Hospital Repository Drug nifedipine/Y34700 Freezes up SV [place] 8 Allergy/225900403( 0710(RXNORM) limbs [facility] SN[facility]) Hospital Repository Drug codeine/[id number] Unknown Unknown [place] 8 Allergy/929888670( 0(RXNORM) Community SNOM[facility]) Hospital Repository Drug ibuprofen/F969403 Other Unknown [place] 8 Allergy/465982863( 377(RXNORM) Community SNOM[facility] CT) Hospital Repository Drug amlodipine/C23472 Freezes up SV [place] 8 Allergy/998272085( 3672(RXNORM) limbs [facility] SN[facility] Hospital Repository Drug alendronate gi upset [place] 8 Allergy/321602458( sodium/Z851080471 Community SNOMED CT) (RXNORM) Hospital Repository Miscellaneous HCTA low sodium [place] 8 Allergy/491264354( Community SNOM[facility]) Hospital Repository Miscellaneous LIPITOR Unknown Unknown [place] 8 Allergy/079443808( Community SNOM[facility]) Hospital Repository DRUG ATORVASTATIN INTOLERANCE [place] 6 INGREDI/903909030( [facility] SNOMED CT) [place] Repository DRUG/224674764(SNO ALENDRONATE OTHER: SEE C [place] [address]) [facility] [place] Repository DRUG LISINOPRIL SWELLING [place] 2 INGREDI/746435748( [facility] SNOMED CT) [place] Repository DRUG CODEINE INTOLERANCE [place] INGREDI/216622498( [facility] SNOMED CT) [place] Repository DRUG IBUPROFEN GI UPSET [place] INGREDI/498289868( [facility] SNOMED CT) [place] Repository ENCOUNTERS ENCOUNTERS ADMIT/DISCHARGE ACCOUNT ADMITTING ENCOUNTER LOCATION SOURCE NUMBER CLASS 04/02/2018 [id number] Ambulatory [facility] ing:POLAB3 Repository 03/17/2018 [id number] Ambulatory [facility] ing:POLAB3 Repository 03/03/2018/03/03/20 [id number] Ambulatory [address] ing:PT Repository 01/23/2018/01/24/20 [id number] Ambulatory BMSBuilding:B [place] 18 [facility] Repository 01/13/2018/01/14/20 [id number] Ambulatory BMSBuilding:B [place] [address] [facility] Repository 12/15/2017 [id number] Ambulatory [facility] ing:POLAB3 Repository 10/06/2017/10/07/19 [id number] Ambulatory BMSBuilding:B [place] 18 [facility] Repository 10/03/2017 [id number] Ambulatory [facility]MSBuilding:[facility] Repository 10/02/2017 [id number] Ambulatory [facility] ing:PSN Repository 09/10/2017 [id number] Ambulatory [facility] ing:POLAB3 Repository 08/18/2017/08/31/19 [id number] Michael Snowden Chi Inpatient [place] 18 Encounter [facility] ing:TCURoom: Repository GUU01Wkc: 1 08/12/2017/08/19/19 [id number] Benny Spivey Inpatient [facility] 18 Encounter [facility] ing:TU2Rrhg: Repository EN256Rif: 1 08/12/2017 [id number] Benny Spivey Ambulatory BMSBuilding:B [place] [facility] Repository 08/12/2017 [id number] Benny Spivey Ambulatory BMSBuilding:Annie Abdi MS.[facility] Repository 08/12/2017 [id number] Benny Spivey Ambulatory BMSBuilding:Annie Abdi MS.[facility] Repository 08/12/2017 [id number] Benny Spivey Ambulatory BMSBuilding:Annie Abdi MS.[facility] Repository 08/12/2017 [id number] Benny Spivey Ambulatory BMSBuilding:Annie Abdi MS.[facility] Repository 08/12/2017 [id number] Benny Spivey Ambulatory BMSBuilding:Annie Abdi MS.[facility] Repository 08/12/2017 [id number] Benny Spivey Ambulatory BMSBuilding:Annie Abdi MS.[facility] Repository 08/12/2017 [id number] Benny Spivey Ambulatory BMSBuilding:Annie Abdi MS.[facility] Repository 08/12/2017/08/19/19 [id number] Ambulatory BMSBuilding:Erik Abdi 18 [facility] Repository 08/11/2017 [id number] Ambulatory BMSBuilding:Annie Abdi MS.[facility] Repository 07/02/2017/07/03/19 [id number] Ambulatory BMSBuilding:Annie Abdi 18 [facility] Repository 06/16/2017/06/17/19 [id number] Ambulatory BMSBuilding:Annie Abdi [address] [facility] Repository 05/23/2017/05/24/19 [id number] Ambulatory [address] Repository 05/13/2017/05/31/19 [id number] Ambulatory [address] Repository 05/02/2017/05/02/19 [id number] Ambulatory [address] Repository PAYERS PAYERS ENCOUNTER GUARANTOR PAYER SUBSCRIBER SOURCE 04/02/2018 LIZETTE [id number] Insurance:JORDIA RYDERIVERDOB: Community [place] [employer] PP[place]olicy [id number] Repository [phone]: [phone] [id number] [phone] (CM) Date:0312-42-29MS[address] [address]FA: 04/02/2018 Secondary NOT GIVENUNK [place] Insurance:SELF PAY [facility]: Effective Repository Date:2018-03-17 03/17/2018 LIZETTE A Primary LIZETTE A [place] [id number] Insurance:HUMANA SHRIVERDOB: Community [employer] [place] MED[employer] PPOPolicy [id number] Number: Repository [address]Rhf: 330 [id number] [phone] () Date:8601-58-75HB [address] [address]XS: 03/17/2018 Secondary NOT GIVENUNK [place] Insurance:SELF PAY [facility] Number: Effective Repository Date:2018-03-17 03/03/2018 LIZETTE A Primary LIZETTE A [place] [id number] Insurance:HUMANA SHRIVERDOB: Community [employer] [place] [employer] PPOPolicy [id number] Number: Repository [address]Rds: 330 [id number] [phone] Date:1780-97-47MU [address] [address]PG: 03/03/2018 Secondary NOT GIVENUNK [place] Insurance:SELF PAY [facility] Number: Effective Repository Date:2017-09-03 01/23/2018 LIZETTE A Primary LIZETTE A [place] [id number] Insurance:HUMANA SHRIVERDOB: Community [employer] [place] [employer] PPOPolicy [id number] Number: Repository [address]Bbs: 330 [id number] [phone] () Date:0333-46-87NK [address] [address]IJ: 01/23/2018 Secondary NOT GIVENUNK [place] Insurance:SELF PAY [facility] Number: Effective Repository Date:2018-01-22 01/13/2018 LIZETTE A Primary LIZETTE A [place] [id number] Insurance:HUMANA [facility]: Community [employer] MED[employer] PPOPolicy [id number]. [facility] [place] Number: Repository [address]Ich: 330 [id number] [phone] (HP) Date:3370-08-99PV [address] [address]NJ: 01/13/2018 Secondary NOT GIVENUNK [place] Insurance:SELF PAY [facility] Number: Effective Repository Date:2018-01-13 12/15/2017 LIZETTE A Primary LIZETTE A [place] [id number] Insurance:HUMANA [facility] CENTERIVERDOB: Community [employer] MEDIC[employer] PPOPolicy [id number]. Mary's Medical Center [place] Number: Repository [id number]: [phone]) [id number] [phone] (HP) Date:0563-09-84EE [address] [address]EB: 12/15/2017 Secondary NOT GIVENUNK [place] Insurance:SELF PAY [facility] Number: Effective Repository Date:2017-12-15 10/06/2017 LIZETTE A Primary LIZETTE A [place] [id number] Insurance:HUMANA [facility] CENTERIVERDOB: Community [employer] [employer] PPOPolicy [id number] [facility] Number: Repository [id number]: ([phone] [id number] [phone] (HP) Date:9331-68-51XE [address] [address]II: 10/06/2017 Secondary NOT GIVENUNK [place] Insurance:SELF PAY [facility] Number: Effective Repository Date:2017-09-29 10/03/2017 LIZETTE A Primary LIZETTE A [place] [id number] Insurance:HUMANA [facility] CENTERIVERDOB: Community [place] MEDIC[employer] PPOPolicy [id number]. Mary's Medical Center [place] Number: Repository [address]Rlh: (330 [id number] [phone] (HP) Date:8345-45-52LN [address] [address]GP: 10/03/2017 Secondary NOT GIVENUNK [place] Insurance:SELF PAY [facility] Number: Effective Repository Date:2017-10-03 10/02/2017 LIZETTE A Primary LIZETTE A [place] [id number] Insurance:HUMANA SHRIVERDOB: Community [employer] [place] [employer] PPOPolicy [id number]. Mary's Medical Center [place] Number: Repository [address]Mwl: [phone]) [id number] [phone] (HP) Date:0739-89-74VS [address] [place] [address]CY: 10/02/2017 Secondary NOT GIVENUNK [place] Insurance:SELF PAY [facility] Number: Effective Repository Date:2017-07-02 09/10/2017 LIZETTE A Primary LI[place]ETTE A [place] [id number] Insurance:HUMANA [facility] CENTERIVERDOB: Community [employer] [employer] PPOPolicy [id number] Valley [facility], [place] Number: Repository [id number]: [id number] [phone] Date:0750-23-36TN [address] () [address] [place] [address]RC: 09/10/2017 Secondary NOT GIVENUNK [place] Insurance:SELF PAY [facility] Number: Effective Repository Date:2017-09-10 08/18/2017 LIZETTE A Primary LIZETTE A [place] [id number] Insurance:HUMANA [facility] CENTERIVERDOB: Community [employer] [employer]IC[employer] PPOPolicy [id number] Valley [facility], [place] Number: Repository [address]Olf: [id number] [phone] Date:8184-32-75VI [address] () [id number] [place] [address]OX: 08/18/2017 Secondary NOT GIVENUNK [place] Insurance:SELF PAY [facility] Number: Effective Repository Date:2017-08-18 08/12/2017 LIZETTE A Primary LIZETTE A [place] [id number] Insurance:HUMANA [facility] CENTERIVERDOB: Community [employer] [place] [employer] PPOPolicy [id number] Valley Cancer Center, [place] Number: Repository [address]Kqa: [id number] [phone] Date:6585-99-37BT [address] -[address] (HP) [address] [place] [address]NM: 08/12/2017 Secondary NOT GIVENUNK [place] Insurance:SELF PAY [facility] Number: Effective Repository Date:2017-08-11 08/12/2017 LIZETTE A Primary LIZETTE A [place] [id number] Insurance:HUMANA SHRIVERDOB: [facility] MEDICARE [facility] [id number]. Mary's Medical Center [place] Number: Repository [address]Xqb: [id number] [phone] Date:6211-59-29JF [address] () [address] [place] [address]VS: 08/12/2017 Secondary NOT GIVENUNK [place] Insurance:SELF PAY [facility] Number: Effective Repository Date:2017-08-12 08/12/2017 LIZETTE A Primary LIZETTE A [place] [id number] Insurance:HUMANA SHRIVERDOB: Community [employer] [employer] PPOPolicy [id number]. Mary's Medical Center [place] Number: Repository [id number]: [id number] [phone] Date:7034-53-19KP [address] () [address] [place] [address]MS: 08/12/2017 Secondary NOT GIVENUNK [place] Insurance:SELF PAY [facility] Number: Effective Repository Date:2017-08-12 08/12/2017 LIZETTE A Primary LIZETTE A [place] [id number] Insurance:HUMANA SHRIVERDOB: Community [employer] [place] [employer] PPOPolicy [id number]. Mary's Medical Center [place] Number: Repository [address]Hul: [id number] [phone] Date:3303-26-20KM [address] -[address] (HP) [address] [place] [address]AU: 08/12/2017 Secondary NOT GIVENUNK [place] Insurance:SELF PAY [facility] Number: Effective Repository Date:2017-08-12 08/12/2017 LIZETTE A Primary LIZETTE A [place] [id number] Insurance:HUMANA SHRIVERDOB: Community [employer] [place] [employer] PPOPolicy [id number]. Mary's Medical [facility] [place] Number: Repository [address]Zdp: [id number] [phone] Date:1861-91-54DP [address] () [address] [place] [address]FX: 08/12/2017 Secondary NOT GIVENUNK [place] Insurance:SELF PAY [facility] Number: Effective Repository Date:2017-08-12 08/12/2017 LIZETTE A Primary LIZETTE A [place] [id number] Insurance:HUMANA SHRIVERDOB: Community [employer] [place] [employer] PPOPolicy [id number] Valley Cancer [facility], [place] Number: Repository [address]Iad: [id number] [phone] Date:9171-92-16BD [address] -[address] () [id number] [place] [address]VD: 08/12/2017 Secondary NOT GIVENUNK [place] Insurance:SELF PAY [facility] Number: Effective Repository Date:2017-08-12 08/12/2017 LIZETTE A Primary LIZETTE A [place] [id number] Insurance:HUMANA [facility] CENTERIVERDOB: Community [employer] MEDIC[employer] PPOPolicy [id number] Valley Cancer Center, [place] Number: Repository [address]Cvv: [id number] [phone] Date:0870-84-81KW [address] -[address] (HP) [id number] [place] [address]GZ: 08/12/2017 Secondary NOT GIVENUNK [place] Insurance:SELF PAY [facility] Number: Effective Repository Date:2017-08-12 08/12/2017 LIZETTE A Primary LIZETTE A [place] [id number] Insurance:HUMANA [facility] CENTERIVERDOB: Community [employer] MEDIC[employer] PPOPolicy [id number] Valley [facility] Number[place] Repository [address]Tyc: [id number] [phone] Date:9841-82-93UC [address] -[address] (HP) [address] [place] [address]UE: 08/12/2017 Secondary NOT GIVENUNK [place] Insurance:SELF PAY [facility] Number: Effective Repository Date:2017-08-12 08/12/2017 LIZETTE A Primary LIZETTE A [place] [id number] Insurance:HUMANA SHRIVERDOB: Community [place] [facility] [id number]. Mary's Medical Center [place] Number: Repository [address]Gwj: [id number] [phone] Date:6061-49-02UX [address] -[address] () [address] [place] [address]SE: 08/12/2017 Secondary NOT GIVENUNK [place] Insurance:SELF PAY [facility] Number: Effective Repository Date:2017-08-12 08/12/2017 LIZETTE A Primary LIZETTE A [place] [id number] Insurance:HUMANA SHRIVERDOB: [facility] MEDICARE [facility] [id number][place] Number[place] Repository [address]Xus: (330) [id number] [phone] (HP) Date:2945-58-48PK [address] [place] [address]FJ: 08/12/2017 Secondary NOT GIVENUNK [place] Insurance:SELF PAY [facility] Number: Effective Repository Date:2017-08-12 08/11/2017 LIZETTE A Primary LIZETTE A [place] [id number] Insurance:HUMANA SHRIVERDOB: [facility] MEDICARE [facility] [id number], [place] Number: Repository [id number]: [id number] [phone] Date:6747-68-62QS [address] -[address] () [address] [place] [address]IT: 08/11/2017 Secondary NOT GIVENUNK [place] Insurance:SELF PAY [facility] Number: Effective Repository Date:2017-08-11 07/02/2017 LIZETTE A Primary LIZETTE A [place] [id number] Insurance:HUMANA SHRIVERDOB: Community [employer] [employer] PPOPolicy [id number], [place] Number: Repository [id number]: [id number] [phone] Date:6890-16-63YR [address] -[address] () [id number] [place] [address]GR: 07/02/2017 Secondary NOT GIVENUNK [place] Insurance:SELF PAY [facility] Number: Effective Repository Date:2017-06-30 06/16/2017 LIZETTE A Primary LIZETTE A [place] [id number] Insurance:HUMANA [facility]IVERDOB: Community [employer] MED[employer] PPOPolicy [id number], [place] Number: Repository [address]Cxs: [id number] [phone] Date:5189-96-23ZD [address] -[address] () [id number] [place] [address]JD: 06/16/2017 Secondary NOT GIVENUNK [place] Insurance:SELF PAY [facility] Number: Effective Repository Date:2017-03-11
== END ==
PROVIDERS: Family Provider Family Medicine Geriatric Medicine; PCP Family Medicine Geriatric Medicine; Visit Provider Family Medicine Geriatric Medicine
DX: I10 Essential (primary) hypertension (principal); E78.49 Other hyperlipidemia; E55.9 Vitamin D deficiency, unspecified
CPT/HCPCS: 36415; 80053; 80061; 82306; 84443; 85025

== ENCOUNTER → 2018-04-02 12:10 | Outpatient (CLI) | payer MEDICARE, SELFPAY ==
[2018-01-23 14:20] VITALS: BMI 38.2
[2018-04-02 18:00] LABS: BUN 24 mg/dL (7-18); Creatinine, Serum 0.78 mg/dL (0.55-1.02); Glucose 88 mg/dL (74-106)
[2018-04-02 18:01] LABS: Anion Gap 9 (5-15); BUN/Creat Ratio 30.8 RATIO (10-20); Calcium,Total 8.7 mg/dL (8.5-10.1); Chloride 103 mmol/L (98-107); EST Glomerular Filtration Rate 77 mL/min (>60); Est Glom Filt Rate - Afr Amer 93 mL/min (>60); Sodium Level 139 mmol/L (136-145)
== END ==
PROVIDERS: Family Provider Family Medicine Geriatric Medicine; PCP Family Medicine Geriatric Medicine; Visit Provider Family Medicine Geriatric Medicine
DX: I10 Essential (primary) hypertension (principal)
CPT/HCPCS: 36415; 80048

== ENCOUNTER → 2018-06-22 13:55 | Outpatient (CLI) | payer MEDICARE, SELFPAY ==
[2018-01-23 14:20] VITALS: BMI 38.2
[2018-06-22 15:17] LABS: Absolute Lymphocyte Count 1.65 X10^3/ul (0.83-4.51); Absolute Neutrophil Count 4.1 X10^3/uL (2.0-7.7); Basophil# 0.03 X10^3/uL; Basophil% 0.5 % (0-1); Eosinophil# 0.13 X10^3/uL; Eosinophils% 2.1 % (0-5); Hemoglobin 13.2 g/dl (12.0-15.0); Lymphocyte # 1.65 X10^3/ul (4.0); Lymphocyte % 26.1 % (19-41); Mean Corp Hgb Conc 32.2 g/gl (32-36); Mean Corpuscular Hgb 30.9 pg (27.0-32.0); Mean Platelet Vol. 10.1 fl (6.2-12.0); Monocyte# 0.41 X10^3/uL; Monocyte% 6.5 % (0-10); Neutrophil # 4.09 X10^3/uL (2.7-7.7); Neutrophil % 64.6 % (47-70); Platelet Count 260 K/mm3 (150-450); RBC Distribution Width CV 13.4 % (11.6-14.6); RBC Distribution Width SD 46.5 fl (35.1-43.9); Red Blood Count 4.27 M/mm3 (4.2-5.4); White Blood Count 6.3 K/mm3 (4.4-11.0)
[2018-06-22 15:23] LABS: POSITIVE COUNT NO; POSITIVE DIFFERENTIAL NO; POSITIVE MORPHOLOGY NO
[2018-06-22 15:38] LABS: Vitamin D,25 Hydroxy 68.8 ng/mL (29.95-100.01)
[2018-06-22 15:54] LABS: ALB/GLOB Ratio 0.8 RATIO (0.9-2.4); AST(SGOT) 19 U/L (15-37); Alanine Aminotransfer ALT/SGPT 26 U/L (13-56); Albumin, Serum 3.6 g/dL (3.2-5.0); Alkaline Phosphatase 84 U/L (45-117); Anion Gap 9 (5-15); BUN 21 mg/dL (7-18); BUN/Creat Ratio 26.5 RATIO (10-20); Chloride 106 mmol/L (98-107); Cholesterol 172 mg/dL (200); Creatinine, Serum 0.79 mg/dL (0.55-1.02); EST Glomerular Filtration Rate 76 mL/min (>60); Est Glom Filt Rate - Afr Amer 91 mL/min (>60); Globulin 4.3 g/dL (2.2-4.2); Glucose 109 mg/dL (74-106); High Density Lipoprotein 57 mg/dL; Potassium 4.1 mmol/L (3.5-5.1); Protein, Total 7.9 g/dL (6.4-8.2); Sodium Level 142 mmol/L (136-145); Thyroid Stim Hormone (TSH) 1.58 uIU/mL (0.358-3.74); Triglycerides 109 mg/dL; Very Low Density Lipoprotein 22 mg/dL (5-40)
== END ==
PROVIDERS: Family Provider Family Medicine Geriatric Medicine; PCP Family Medicine Geriatric Medicine; Visit Provider Family Medicine Geriatric Medicine
DX: I10 Essential (primary) hypertension (principal); E78.5 Hyperlipidemia, unspecified; E55.9 Vitamin D deficiency, unspecified
CPT/HCPCS: 36415; 80053; 80061; 82306; 84443; 85025

== ENCOUNTER → 2018-07-28 12:58 | Outpatient (CLI) | payer MEDICARE, SELFPAY ==
[2018-07-14 14:36] VITALS: BMI 36.3
--- NOTE | 2018-07-28 13:01 | CDU_ITS ---
Reason For Study: Vertigo Rt. Velocities/BP Lt. Velocities/BP Prox CCA 70.8/20 cm/sec. Prox CCA 70.9/22.9 cm/sec. Mid CCA 59.7/19 cm/sec. Mid CCA 62.2/22.9 cm/sec. Dist CCA 59.6/16 cm/sec. Dist CCA 55.2/16 cm/sec. Prox ICA 50.9/15.1 cm/sec. Prox ICA 43.9/11.6 cm/sec. Mid ICA 56.1/20.3 cm/sec. Mid ICA 55.2/21.2 cm/sec. Dist ICA 54.3/22.9 cm/sec. Dist ICA 67.4/21.2 cm/sec. Rt. ICA/CCA = 0.9. Lt. ICA/CCA = 1.1. Prox ECA 57/7.2 cm/sec. Prox ECA 63.1/9.9 cm/sec. Rt. Vert. 47.9/14.4 cm/sec. Lt. Vert. 55.2/16 cm/sec. Right Extracranial There is homogeneous, smooth atherosclerotic plaque noted in the right common carotid artery. There is heterogeneous, irregular atherosclerotic plaque noted in the right internal carotid artery. There is intimal thickening but no significant atherosclerotic plaque noted in the right external carotid artery. Antegrade flow is noted in the right vertebral artery. Left Extracranial There is homogeneous, smooth atherosclerotic plaque noted in the left common carotid artery. There is heterogeneous, irregular atherosclerotic plaque noted in the left internal carotid artery. There is intimal thickening but no significant atherosclerotic plaque noted in the left external carotid artery. Antegrade flow is noted in the left vertebral artery. Procedure Carotid Duplex [id number]. Exam performed in department. 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 <50% stenosis left external carotid Patent and antegrade vertebrals bilaterally Ordering Physician: Mario Navas Referring Physician: Michael Snowden Chi Performed By: Marisela Antoine RVT
--- NOTE | 2018-07-28 13:53 | ECHOD_ITS ---
Reason For Study: Aortic Stenosis Procedure This was a 2D Doppler, Color Flow transthoracic echocardiogram. The study was technically difficult. Pt scanned supine. Exam performed in department. Left Ventricle Normal LV size. Sigmoid septum. The estimated ejection fraction is 60 %. Stage 1 diastolic dysfunction. No regional wall motion abnormalities noted. Atria Normal left atrium. Normal right atrium. Mitral Valve There is mild mitral annular calcification. Mild (1+) eccentric mitral valve insufficiency. Tricuspid Valve Normal tricuspid valve. Mild (1+) tricuspid valve insufficiency. Pulmonary artery systolic pressure is 30 mmHg. Aortic Valve Trisinus/trileaflet aortic valve. Moderate focal aortic valve calcification. Peak aortic valve gradient 21 mmHg. Mean aortic valve gradient 10 mmHg. Calculated aortic valve area (continuity equation) is 1.6 cm2. Mild aortic stenosis. Mild (1+) eccentric aortic valve insufficiency. Pulmonic Valve Normal pulmonic valve. Great Vessels Normal aortic root. The pulmonary artery is normal size. Normal inferior vena cava. Pericardium/Pleural No pericardial effusion. MMode/2D Measurements & Calculations LVIDd: 3.8 cm IVSd: 1.4 cm LVOT diam: 1.9 cm LVIDs: 2.2 cm LVPWd: 1.0 cm LVOT area: 2.9 cm2 RVDd: 3.2 cm FS: 43.5 % Ao root diam: 4.0 cm LAV(MOD-bp): 46.9 ml LA A4 area: 12.9 cm2 LAV(MOD-bp) Indexed: 27.2 ml/m2 LAV(MOD-sp2): 63.6 ml LAV(MOD-sp4): 31.6 ml RA A4 area: 10.6 cm2 Doppler Measurements & Calculations MV E max madhu: 81.0 cm/sec Lat Peak E' Madhu: 4.5 cm/sec Med Peak E' Madhu: 4.0 cm/sec MV A max madhu: 87.5 cm/sec E/E' lat: 17.9 E/E' med: 20.2 MV E/A: 0.93 Ao V2 max: 230.9 cm/sec AI max madhu: 544.2 cm/sec LV V1 max: 128.1 cm/sec Ao max P.3 mmHg AI max P.8 mmHg LV V1 max P.6 mmHg Ao V2 mean: 150.4 cm/sec AI dec slope: 261.5 cm/sec2 LV V1 mean P.8 mmHg Ao mean P.2 mmHg AI P1/2t: 609.6 msec LV V1 mean: 92.5 cm/sec Ao V2 VTI: 48.1 cm LV V1 VTI: 29.8 cm ODESSA(I,D): 1.8 cm2 ODESSA(V,D): 1.6 cm2 SV(LVOT): 85.9 ml PA V2 max: 76.9 cm/sec TR max madhu: 254.6 cm/sec TR max P.0 mmHg Interpretation Summary Normal LV size. The estimated ejection fraction is 60 %. Stage 1 diastolic dysfunction. Mild (1+) tricuspid valve insufficiency. Moderate focal aortic valve calcification. Mean aortic valve gradient 10 mmHg. Calculated aortic valve area (continuity equation) is 1.6 cm2. Mild aortic stenosis. Compared to prior study, there is no significant change. Ordering Physician: Mario Navas/Bret Daniels Referring Physician: Michael Snowden Chi Performed By: Jhoana Owen RDCS
== END ==
PROVIDERS: Family Provider Family Medicine Geriatric Medicine; PCP Family Medicine Geriatric Medicine; Referring Provider Nurse Practitioner Family; Visit Provider Nurse Practitioner Family
DX: I35.0 Nonrheumatic aortic (valve) stenosis (principal); I10 Essential (primary) hypertension; R42 Dizziness and giddiness
CPT/HCPCS: 93306; 93880

== ENCOUNTER → 2018-09-17 09:53 | Outpatient (CLI) | payer MEDICARE, SELFPAY ==
[2018-07-14 14:36] VITALS: BMI 36.3
[2018-09-17 15:38] LABS: Absolute Lymphocyte Count 0.93 X10^3/ul (0.83-4.51); Absolute Neutrophil Count 3.5 X10^3/uL (2.0-7.7); Basophil# 0.02 X10^3/uL; Basophil% 0.4 % (0-1); Hematocrit 40.6 % (37-47); Hemoglobin 13.2 g/dl (12.0-15.0); Lymphocyte # 0.93 X10^3/ul (4.0); Lymphocyte % 18.6 % (19-41); Mean Corp Hgb Conc 32.5 g/gl (32-36); Mean Corpuscular Hgb 30.7 pg (27.0-32.0); Mean Corpuscular Volume 94.4 fL (81-99); Mean Platelet Vol. 10.1 fl (6.2-12.0); Monocyte# 0.41 X10^3/uL; Monocyte% 8.2 % (0-10); Neutrophil # 3.54 X10^3/uL (2.7-7.7); Neutrophil % 70.6 % (47-70); Platelet Count 208 K/mm3 (150-450); RBC Distribution Width SD 43.4 fl (35.1-43.9)
[2018-09-17 15:39] LABS: POSITIVE COUNT NO; POSITIVE DIFFERENTIAL NO; POSITIVE MORPHOLOGY NO
[2018-09-17 16:03] LABS: Vitamin D,25 Hydroxy 59.1 ng/mL (29.95-100.01)
[2018-09-17 16:06] LABS: ALB/GLOB Ratio 0.8 RATIO (0.9-2.4); AST(SGOT) 17 U/L (15-37); Alanine Aminotransfer ALT/SGPT 23 U/L (13-56); Albumin, Serum 3.3 g/dL (3.2-5.0); Alkaline Phosphatase 76 U/L (45-117); Anion Gap 8 (5-15); BUN 20 mg/dL (7-18); BUN/Creat Ratio 26.6 RATIO (10-20); Calcium,Total 8.8 mg/dL (8.5-10.1); Chloride 107 mmol/L (98-107); Cholesterol 172 mg/dL (200); Creatinine, Serum 0.75 mg/dL (0.55-1.02); EST Glomerular Filtration Rate 80 mL/min (>60); Est Glom Filt Rate - Afr Amer 97 mL/min (>60); Globulin 4.2 g/dL (2.2-4.2); Glucose 124 mg/dL (74-106); High Density Lipoprotein 58 mg/dL; Potassium 3.9 mmol/L (3.5-5.1); Protein, Total 7.5 g/dL (6.4-8.2); Sodium Level 140 mmol/L (136-145); Thyroid Stim Hormone (TSH) 0.65 uIU/mL (0.358-3.74); Triglycerides 117 mg/dL; Very Low Density Lipoprotein 23 mg/dL (5-40)
== END ==
PROVIDERS: PCP Family Medicine Geriatric Medicine; Visit Provider Family Medicine Geriatric Medicine
DX: I10 Essential (primary) hypertension (principal); E78.5 Hyperlipidemia, unspecified; E55.9 Vitamin D deficiency, unspecified
CPT/HCPCS: 36415; 80053; 80061; 82306; 84443; 85025

== ENCOUNTER → 2018-11-09 16:45 | Outpatient (CLI) | payer MEDICARE, SELFPAY ==
[2018-07-14 14:36] VITALS: BMI 36.3
--- NOTE | 2018-11-09 16:47 | RAD_ITS ---
STUDY: X-RAY - PELVIS AND LEFT HIP REASON FOR EXAM: Female, 73 years old. Pain and numbness TECHNIQUE: 3 views of the pelvis and hip. COMPARISON: None. FINDINGS: There is a non-specific bowel gas pattern. Normal visualized soft tissue structures. Normal bilateral iliac wings, sacroiliac joints and visualized sacrum. Normal bilateral superior and inferior pubic rami. Normal pubic symphysis. Normal bilateral ischial tuberosities. Normal visualized femoral head. Mild acetabular spurring. Normal hip joint. RAD/HIP, UNI W/ Pelvis 2-3 Views IMPRESSION: Mild degenerative changes. No evidence for acute fracture Electronically Signed: Ridge Washington MD at 21:33 EDT , Service support ,
--- NOTE | 2018-11-09 16:48 | RAD_ITS ---
STUDY: X-RAY - LUMBAR SPINE REASON FOR EXAM: Female, 73 years old. Numbness and pain. TECHNIQUE: 3 view(s) of the lumbar spine were obtained. COMPARISON: 07/15/2016 CT abdomen and pelvis. FINDINGS: Moderate compression L1 vertebral body, chronic, but slightly increased compared to prior. Bilateral L5 spondylolysis with grade 2, 1.2 cm, anterolisthesis of L5 on S1 and marked disc degeneration at this level similar to previous. Mild chronic loss of height in T12 vertebral body unchanged. Mild exaggeration of lumbar lordosis and lower thoracic kyphosis. Alignment similar to prior. No acute osseous or soft tissue abnormality. Calcific atherosclerosis. Partial lumbarization of S1, transitional lumbosacral anatomy. RAD/Lumbar Spine 2 or 3 Views IMPRESSION: No acute findings. 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 Electronically Signed: Mohamud Blount, at 0:12 EDT Tel , Service support ,
--- NOTE | 2018-11-09 16:48 | RAD_ITS ---
STUDY: X-RAY - LEFT KNEE REASON FOR EXAM: Female, 73 years old. Pain and numbness TECHNIQUE: 4 view(s) of the knee. COMPARISON: None. FINDINGS: Knee prosthesis is noted in anatomic alignment and position. No evidence for acute fracture. No definitive evidence for loosening or infection. RAD/Knee 4 or More Views IMPRESSION: Stable appearance to left knee prosthesis Electronically Signed: Ridge Washington MD at 21:32 EDT , Service support ,
== END ==
PROVIDERS: Family Provider Family Medicine Geriatric Medicine; PCP Family Medicine Geriatric Medicine; Referring Provider Family Medicine Geriatric Medicine; Visit Provider Family Medicine Geriatric Medicine
DX: M54.5 Low back pain (principal); M25.562 Pain in left knee; M25.552 Pain in left hip; R10.30 Lower abdominal pain, unspecified
CPT/HCPCS: 72100; 73502; 73564

== ENCOUNTER 2018-11-10 11:07 | Emergency (ER) | payer MEDICARE, SELFPAY ==
[2018-07-14 14:36] VITALS: BMI 36.3
[2018-11-10 11:08] VITALS: BP 164/88; PULSE 76; RESP 17; TEMP 36.6; O2SAT 94; BMI 35.5
--- NOTE | 2018-11-10 11:27 | ED.VISSUMM ---
- ER Visit Summary Date of Service: 11/10/18 Chief Complaint: Accidental overdose on diclofenac History of Present Illness: The patient is a 73 F history of sarcoidosis and hypertension. Patient had recent falls. She saw her primary care physician Dr. Snowden who gave her an injection of Toradol and Solu-Medrol and Kenalog and and put her on anti-inflammatories and prednisone. She simply made a mistake and took a diclofenac today thinking that was the right amount. This was not intentional overdose. She is not depressed or suicidal. She denies any complaints and this occurred around 830 - 9:00 this morning. Physical Examination: Older female coming by her sister no distress. Vital signs are stable and afebrile. H EENT exam is unremarkable. Neck nontender. Lungs clear bilaterally. Heart regular rhythm 3/6 systolic ejection murmur. History of murmur. Chest wall nontender. Abdomen soft nontender. She is moving all 4 extremities. She has tenderness along her left lateral thigh from the fall. She has had x-rays reportedly that were negative. Neurologically she is awake and alert with no focal motor deficits. Test Results: BMP shows no acute abnormality. BUN of 24 creatinine 0.8 which is her baseline. Emergency Department Course and Treatment: Repeat exam patient is doing well. She will be discharged home follow-up with Dr. Snowden for repeat evaluation of her kidney function. Repeat exam patient is doing well at 12:35 PM. We discussed her current meds. I have explained to her she come off of the diclofenac. And probably does not need the other 2 medications either. She can follow-up with Dr. Snowden as needed. Treatment Plan: Follow-up Disposition: Discharge Impression: Accidental overdose of diclofenac This note was generated with [employer] dictation software. It may contain incorrect words, spelling, and punctuation that were not noted in review of the chart prior to signing ED Disposition - Plan for ED Patient: Referrals: Michael Snowden Chi, MD [Primary Care Provider] -
[2018-11-10 12:05] LABS: Anion Gap 10 (5-15); BUN 24 mg/dL (7-18); BUN/Creat Ratio 27.5 RATIO (10-20); Calcium,Total 8.9 mg/dL (8.5-10.1); Chloride 105 mmol/L (98-107); Creatinine, Serum 0.87 mg/dL (0.55-1.02); EST Glomerular Filtration Rate 68 mL/min (>60); Est Glom Filt Rate - Afr Amer 82 mL/min (>60); Estimated Creatinine Clearance 70.11 ml/min; Glucose 144 mg/dL (74-106); Potassium 3.9 mmol/L (3.5-5.1); Sodium Level 139 mmol/L (136-145)
[2018-11-10 12:46] VITALS: BP 182/89; PULSE 56; RESP 17; O2SAT 95
--- NOTE | 2018-11-10 12:49 | ED.DEP ---
ED Disposition - Plan for ED Patient: Disposition: Home or Assisted Living Referrals: Michael Snowden Chi, MD [Primary Care Provider] - As Needed Additional Instructions: I would stop taking the diclofenac, prednisone and baclofen. Probably unnecessary and will not anterior recovery. Ice to sore areas on your legs and Tylenol for pain. Follow-up as needed.
[2018-11-10 13:42] VITALS: BP 182/89; PULSE 56; RESP 17; O2SAT 95
== END 2018-11-10 13:43 | disposition home or self-care (01) ==
PROVIDERS: Emergency Provider Emergency Medicine; Family Provider Family Medicine Geriatric Medicine; PCP Family Medicine Geriatric Medicine
DX: T39.391A Poisoning by other nonsteroidal anti-inflammatory drugs [NSAID], accidental (unintentional), initial encounter (principal); Y92.9 Unspecified place or not applicable; I10 Essential (primary) hypertension; D86.9 Sarcoidosis, unspecified; Z79.899 Other long term (current) drug therapy
CPT/HCPCS: 80048; 99282

== ENCOUNTER → 2018-11-12 13:56 | Outpatient (CLI) | payer MEDICARE, SELFPAY ==
[2018-11-10 11:08] VITALS: BMI 35.5
[2018-11-12 17:03] LABS: Anion Gap 6 (5-15); BUN 43 mg/dL (7-18); Calcium,Total 8.5 mg/dL (8.5-10.1); Chloride 108 mmol/L (98-107); Creatinine, Serum 0.78 mg/dL (0.55-1.02); EST Glomerular Filtration Rate 77 mL/min (>60); Est Glom Filt Rate - Afr Amer 93 mL/min (>60); Glucose 82 mg/dL (74-106); Potassium 4.1 mmol/L (3.5-5.1); Sodium Level 143 mmol/L (136-145)
== END ==
PROVIDERS: Family Provider Family Medicine Geriatric Medicine; PCP Family Medicine Geriatric Medicine; Visit Provider Family Medicine Geriatric Medicine
DX: D64.9 Anemia, unspecified (principal)
CPT/HCPCS: 36415; 80048

== ENCOUNTER 2018-11-15 14:41 | Inpatient (IN) | payer MEDICARE, SELFPAY ==
[2018-11-15] VITALS (7 sets, daily range): BP systolic 131–142; BP diastolic 58–66; PULSE 57–72; RESP 16–18; TEMP 36.1–37; O2SAT 96–99; BMI 35.3; BMI 35.1
--- NOTE | 2018-11-15 14:56 | ED.DCSUM_ITS ---
History of Present Illness <Thony Fregoso - Last Filed: 11/15/18 15:12> Informant: Patient Onset: Days Narrative: Patient presents to the ED with primary complaint of melena since Friday night. Friday during the day, she was seen in this emergency department for taking too many diclofenac tablets. She was prescribed this and prednisone by her PCP for back pain secondary to her sarcoidosis. She states since her visit on Friday she has not been taking those medications as directed by the ER physician that saw her at that time, Dr. Fregoso. She states that when she was home that night after her ER visit she noticed melena. Her stool is still formed. She has had one episode of melena a day since Friday. She denies any fever, chills, chest pain, shortness of breath, dizziness, abdominal pain. She denies use of anticoagulants. 3 to 4 years ago she did have a h istory of bleeding gastric ulcer. <Jessenia Sahu - Last Filed: 11/15/18 15:53> Chief Complaint: GI Bleed Past Medical History - Family History Paternal Family History: Family History (Last Updated 07/14/18 @ 14:58 by Jeannine Alatorre) Father Hypertension Aortic aneurysm Mother Hypertension Sister Hypertension Diabetes Maternal Family History: Family History (Last Updated 07/14/18 @ 14:58 by Jeannine Alatorre) Father Hypertension Aortic aneurysm Mother Hypertension Sister Hypertension Diabetes Sibling Family History: Family History (Last Updated 07/14/18 @ 14:58 by Jeannine Alatorre) Father Hypertension Aortic aneurysm Mother Hypertension Sister Hypertension Diabetes <Thony Fregoso - Last Filed: 11/15/18 15:12> Surgical History: total knee arthroplasty, tonsillectomy Smoking Status: Never smoker - Family History Paternal Family History: Family History (Last Updated 07/14/18 @ 14:58 by Jeannine Alatorre) Father Hypertension Aortic aneurysm Mother Hypertension Sister Hypertension Diabetes Family History: Reports: - - AAA Maternal Family History: Family History (Last Updated 07/14/18 @ 14:58 by Jeannine Alatorre) Father Hypertension Aortic aneurysm Mother Hypertension Sister Hypertension Diabetes Family History: Reports: Heart Disease Sibling Family History: Family History (Last Updated 07/14/18 @ 14:58 by Jeannine Alatorre) Father Hypertension Aortic aneurysm Mother Hypertension Sister Hypertension Diabetes Family History: Reports: Diabetes <Jessenia Sahu - Last Filed: 11/15/18 15:53> - Allergies and Home Meds Allergies/Adverse Reactions: Allergies hydrochlorothiazide Allergy (Intermediate, Verified 11/10/18 11:08) low sodium lisinopril Allergy (Verified 11/10/18 11:08) Angioedema amlodipine [From Norvasc] Adverse Reaction (Severe, Verified 11/10/18 11:08) Freezes up limbs nifedipine [From Nifedical XL] Adverse Reaction (Severe, Verified 11/10/18 11:08) Freezes up limbs alendronate sodium [From Fosamax] Adverse Reaction (Intermediate, Verified 11/10/18 11:08) GI upset codeine Adverse Reaction (Verified 11/10/18 11:08) Unknown ibuprofen Adverse Reaction (Verified 11/10/18 11:08) Other HCTA Adverse Reaction (Intermediate, Uncoded 11/10/18 11:08) Low sodium LIPITOR Adverse Reaction (Uncoded 11/10/18 11:08) Unknown Primary Care Physician: Michael Snowden Chi, MD [Primary Care Provider] - Review of Systems General: Denies: Chills, Fever, Sweats Eyes: Denies: Visual changes - bilaterally, Diplopia ENT: Denies: Rhinorrhea, Sore throat Cardiovascular: Denies: Chest pain, Palpitations Respiratory: Denies: Dyspnea, Cough, Dyspnea on exertion Gastrointestinal: Reports: Melena. Denies: Abdominal pain, Nausea, Vomiting, Diarrhea, Hematochezia Genitourinary: Denies: Dysuria, Hematuria, Frequency Musculoskeletal: Denies: Back pain, Extremity Pain Skin: Denies: Rash, Wounds Neurological: Denies: Headache, Weakness, Numbness <Jessenia Sahu - Last Filed: 11/15/18 15:53> Physical Exam Vital Signs/Narrative: Vital Signs Temp Pulse Resp BP Pulse Ox 11/15/18 14:42 97 F L 69 16 136/66 H 96 <Thony Fregoso - Last Filed: 11/15/18 15:12> Vital Signs/Narrative: Vital Signs Temp Pulse Resp BP Pulse Ox 11/15/18 14:42 97 F L 69 16 136/66 H 96 General: Well nourished, Well developed, No Acute Distress Head: Normocephalic, Atraumatic Eyes: Perrl, EOMI ENT: Moist mucous membranes, No rhinorrhea Neck: Supple, Nontender Cardiovascular: Regular rate, Regular rhythm, No murmurs Respiratory: No distress, CTA bilaterally, Chest nontender Abdomen: Soft, Nontender, Nondistended, Normal bowel sounds Rectal: Nontender Back: Nontender, Normal Inspection Extremities: Nontender, No edema Skin: Normal color, No rash Neurological: Alert, Oriented x3, Cranial nerves II-XII grossly intact, Normal Strength, Normal Sensation Psychological: Normal affect, Normal Mood <Jessenia Sahu - Last Filed: 11/15/18 15:53> Diagnostic/Tx/Re-eval - Medical Decision Making Concern for possible GI bleed. Patient thought her stool might look darker. She was seen here earlier this past week due to an accidental over ingestion of diclofenac. She has since stopped that medication. She has had a history of a prior bleeding gastric ulcer. Female no acute distress. Vital signs stable afebrile. Lungs are clear. Heart regular rhythm. Abdomen is soft and nontender. Normal bowel sounds no peritoneal signs. Moving all 4 extremities. Calves are nontender without edema. Patient will undergo work-up. <Thony Fregoso - Last Filed: 11/15/18 15:12> - Medical Decision Making Patient presents to the ED with concern for melena that started on Friday night. Other than that she is experiencing no other symptoms. She has have a history of gastric ulcer bleed 3 to 4 years ago. She denies use of anticoagulants. She appears well and nontoxic. Guaiac is negative. Patient's hemoglobin today is 8.9 which is decreased from a hemoglobin of 13 in August of this year. Rest of work-up is negative for acute findings. Given patient's new anemia, she will be admitted to [facility] under Dr. Husain. Impression: Anemia Disposition: Admitted to [facility] <Jessenia Sahu - Last Filed: 11/15/18 15:53> ED Disposition <Thony Fregoso - Last Filed: 11/15/18 15:12> <Jessenia Sahu - Last Filed: 11/15/18 15:53> - Plan for ED Patient: Disposition: Acute Care Hospital [facility] Diagnosis: Anemia Referrals: Michael Snowden Chi, MD [Primary Care Provider] -
[2018-11-15 15:26] LABS: Absolute Lymphocyte Count 1.18 X10^3/uL (0.83-4.51); Absolute Neutrophil Count 5.2 X10^3/uL (2.0-7.7); Basophil# 0.03 X10^3/uL; Basophil% 0.4 % (0-1); Eosinophils% 1.4 % (0-5); Hematocrit 27.7 % (37-47); Hemoglobin 8.9 g/dL (12.0-15.0); Lymphocyte # 1.18 X10^3/ul (4.0); Lymphocyte % 16.6 % (19-41); Mean Corp Hgb Conc 32.1 g/dL (32-36); Mean Corpuscular Hgb 31.9 pg (27.0-32.0); Mean Corpuscular Volume 99.3 fL (81-99); Mean Platelet Vol. 9.7 fl (6.2-12.0); Monocyte# 0.57 X10^3/uL; NRBC Flagged by Analyzer 0 % (0-5); Neutrophil # 5.17 X10^3/uL (2.7-7.7); Neutrophil % 72.9 % (47-70); Platelet Count 215 K/mm3 (150-450); RBC Distribution Width CV 13.6 % (11.6-14.6); RBC Distribution Width SD 49.4 fl (35.1-43.9); Red Blood Count 2.79 M/mm3 (4.2-5.4); White Blood Count 7.1 K/mm3 (4.4-11.0)
[2018-11-15 15:36] LABS: ALB/GLOB Ratio 0.9 RATIO (0.9-2.4); AST(SGOT) 18 U/L (15-37); Alanine Aminotransfer ALT/SGPT 20 U/L (13-56); Albumin, Serum 3.3 g/dL (3.2-5.0); Alkaline Phosphatase 62 U/L (45-117); Anion Gap 5 (5-15); BUN 19 mg/dL (7-18); BUN/Creat Ratio 24.3 RATIO (10-20); Calcium,Total 8.4 mg/dL (8.5-10.1); Chloride 108 mmol/L (98-107); Creatinine, Serum 0.78 mg/dL (0.55-1.02); EST Glomerular Filtration Rate 77 mL/min (>60); Est Glom Filt Rate - Afr Amer 93 mL/min (>60); Estimated Creatinine Clearance 62.79 ml/min; Globulin 3.5 g/dL (2.2-4.2); Glucose 101 mg/dL (74-106); Potassium 4.5 mmol/L (3.5-5.1); Protein, Total 6.8 g/dL (6.4-8.2); Sodium Level 141 mmol/L (136-145)
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
[2018-11-15 15:46] LABS: Partial Thromboplast Time 27.5 Seconds (24.1-36.2)
[2018-11-15 17:11] LABS: Hematocrit 27.6 % (37-47)
[2018-11-15] MEDS: 0.9% Normal Saline 1,000 ML 100 ML IV (17:54)
[2018-11-15] MEDS: HYDROcodone Bitartrate/Apap 5/325 Tablet PO (20:47)
[2018-11-15] MEDS: Metoprolol(XL)Succ 50 MG Tablet PO (22:31)
[2018-11-15 22:33] LABS: Hematocrit 26.1 % (37-47); Hemoglobin 8.5 g/dL (12.0-15.0)
[2018-11-16] VITALS (11 sets, daily range): BP systolic 130–150; BP diastolic 66–80; PULSE 57–75; RESP 16–18; TEMP 36.7–37.4; O2SAT 96–98
[2018-11-16] MEDS: 0.9% Normal Saline 1,000 ML 100 ML IV ×2 (04:40→15:12)
[2018-11-16 06:15] LABS: Absolute Lymphocyte Count 1.44 X10^3/uL (0.83-4.51); Absolute Neutrophil Count 3.5 X10^3/uL (2.0-7.7); Basophil# 0.03 X10^3/uL; Basophil% 0.5 % (0-1); Eosinophil# 0.14 X10^3/uL; Eosinophils% 2.4 % (0-5); Hematocrit 24.1 % (37-47); Hemoglobin 7.9 g/dL (12.0-15.0); Lymphocyte # 1.44 X10^3/ul (4.0); Lymphocyte % 25.2 % (19-41); Mean Corp Hgb Conc 32.8 g/dL (32-36); Mean Corpuscular Hgb 32.4 pg (27.0-32.0); Mean Corpuscular Volume 98.8 fL (81-99); Mean Platelet Vol. 9.6 fl (6.2-12.0); Monocyte# 0.57 X10^3/uL; NRBC Flagged by Analyzer 0 % (0-5); Neutrophil # 3.51 X10^3/uL (2.7-7.7); Neutrophil % 61.4 % (47-70); Platelet Count 179 K/mm3 (150-450); RBC Distribution Width CV 13.7 % (11.6-14.6); RBC Distribution Width SD 49.2 fl (35.1-43.9); Red Blood Count 2.44 M/mm3 (4.2-5.4); White Blood Count 5.7 K/mm3 (4.4-11.0)
[2018-11-16 06:28] LABS: Anion Gap 5 (5-15); BUN 12 mg/dL (7-18); BUN/Creat Ratio 18.7 RATIO (10-20); Calcium,Total 7.8 mg/dL (8.5-10.1); Chloride 112 mmol/L (98-107); Creatinine, Serum 0.64 mg/dL (0.55-1.02); EST Glomerular Filtration Rate 97 mL/min (>60); Est Glom Filt Rate - Afr Amer 117 mL/min (>60); Estimated Creatinine Clearance 62.33 ml/min; Glucose 86 mg/dL (74-106); Sodium Level 144 mmol/L (136-145)
--- NOTE | 2018-11-16 08:22 | PN_ITS ---
Patient Problems: Active and Suspected Problems (Last Reviewed 01/23/18 @ 14:32 by MAR Bravo) GI bleed (Acute) Subjective: Continues to have numbness and tingling in both her hands and feet, she has had this for several years and has never seen a neurologist. She is afraid that she is having a stomach ulcer which is leading to her decreased hemoglobin. Vitals/I&O's: Vital Signs Temp Pulse Resp BP Pulse Ox 99.3 F H 63 16 147/66 H 96 11/16/18 02:00 11/16/18 02:15 11/16/18 02:00 11/16/18 02:00 11/16/18 06:59 Oxygen Delivery Method Room Air Weight: 173 lb 11.588 oz Body Mass Index (BMI) 35.1 Finger Stick Blood Glucose 122 Intake and Output for Last 24 Hours 11/14/18 11/15/18 11/16/18 23:59 23:59 23:59 Intake Total 726 / 726 664 / 664 Output Total 200 / 200 Balance 526 / 526 664 / 664 General: Alert, Oriented x3, Cooperative, No apparent distress HEENT: Atraumatic, PERRLA, EOMI, Normocephalic Oral: Moist Mucosa Neck: Supple, No JVD Lungs: Clear to auscultation, Normal air movement, No rhonchi, No wheeze, No rales, Diminished Cardiovascular: Regular rate, Regular Rhythm, Normal S1, Normal S2, Murmur - 2/6 MANJIT chronic Abdomen: Soft, Non Tender, Non-Distended, No Hepato-splenomegaly Extremities: No edema, Capillary Refill Less than 3 Seconds Skin: No rashes, No breakdown Neurological: - - Sensation is decreased in her extremities, decreased on the right lower extremity compared to the left. She is able to move all extremities against gravity however she does have difficulty with resistance. Psych/Mental Status: Normal Affect, Appropriate Microbiology Past 72 Hours 11/15/18 15:06 Stool Stool Occult Blood (KULWANT) - Final Laboratory Results 11/15/18 15:14: WBC 7.1, RBC 2.79 L, Hgb 8.9 L, Hct 27.7 L, MCV 99.3 H, MCH 31.9, MCHC 32.1, RDW Std Deviation 49.4 H, RDW Coeff of Ok 13.6, Plt Count 215, MPV 9.7, Immature Gran % (Auto) 0.700, Neut % (Auto) 72.9 H, Lymph % (Auto) 16.6 L, [place] % (Auto) 8.0, Eos % (Auto) 1.4, Baso % (Auto) 0.4, Absolute Neuts (auto) 5.2, Absolute Lymphs (auto) 1.18, Nucleated RBC % 0 11/15/18 15:14: Sodium 141, Potassium 4.5, Chloride 108 H, Carbon Dioxide 28.0, Anion Gap 5, BUN 19 H, Creatinine 0.78, Estim Creat Clear Calc 62.79, Est GFR (MDRD) Af Amer 93, Est GFR (MDRD) Non-Af 77, BUN/Creatinine Ratio 24.3 H, Glucose 101, Calcium 8.4 L, Total Bilirubin 0.30, AST 18, ALT 20, Alkaline Phosphatase 62, Total Protein 6.8, Albumin 3.3, Globulin 3.5, Albumin/Globulin Ratio 0.9 11/15/18 15:14: PT 13.0, INR 1.0, APTT 27.5 11/15/18 15:48: Blood Type Cancelled, A1 Antigen Typing Cancelled, Rho(D) Type C ancelled, Antibody Screen Cancelled 11/15/18 16:15: Blood Type O POSITIVE, Antibody Screen NEGATIVE 11/15/18 17:03: Hgb 9.0 L, Hct 27.6 L 11/15/18 22:18: Hgb 8.5 L, Hct 26.1 L 11/16/18 05:48: WBC 5.7, RBC 2.44 L, Hgb 7.9 L, Hct 24.1 L, MCV 98.8, MCH 32.4 H , MCHC 32.8, RDW Std Deviation 49.2 H, RDW Coeff of Ok 13.7, Plt Count 179, MPV 9.6, Immature Gran % (Auto) 0.500, Neut % (Auto) 61.4, Lymph % (Auto) 25.2, [place] % (Auto) 10.0, Eos % (Auto) 2.4, Baso % (Auto) 0.5, Absolute Neuts (auto) 3.5, Absolute Lymphs (auto) 1.44, Nucleated RBC % 0 08/19/19 05:48: Sodium 144, Potassium 4.0, Chloride 112 H, Carbon Dioxide 27.0, Anion Gap 5, BUN 12, Creatinine 0.64, Estim Creat Clear Calc 62.33, Est GFR (MDRD) Af Amer 117, Est GFR (MDRD) Non-Af 97, BUN/Creatinine Ratio 18.7, Glucose 86, Calcium 7.8 L Current Medications Acetaminophen (Tylenol) 650 mg PO Q6H PRN PRN PRN Reason: Non-cardiac pain (mod-severe) Hydrocodone Bitart/Acetaminophen ([place]urel 5mg-325mg) 1 - 2 tablet PO Q6H PRN PRN PRN Reason: MOD-SEVERE PAIN (-01/07) Last Admin: 11/15/18 20:47 Dose: 1 tablet Documented by: Albuterol Sulfate (Ventolin Aerosols) 2.5 mg INHALATION Q2H PRN PRN PRN Reason: dyspnea, wheezing Baclofen (Lioresal) 10 mg PO QHS [facility] Last Admin: 11/15/18 20:51 Dose: Not Given Documented by: Dextrose (D50w Syringe) 0 gm IV X1 PRN; Protocol PRN Reason: Hypoglycemia Glucagon () 1 mg IM .X1 PRN PRN Reason: Hypoglycemia Hydralazine HCl (Apresoline Iv) 10 mg IV Q4H PRN PRN PRN Reason: SBP > 160 Sodium Chloride () 1,000 mls @ 100 mls/hr IV .Q10H [facility] Last Admin: 11/16/18 04:40 Dose: 100 mls/hr Documented by: Pantoprazole Sodium 40 mg/ (Sodium Chloride) 110 mls @ 330 mls/hr IV Q12 [facility] Last Admin: 11/15/18 22:34 Dose: 330 mls/hr Documented by: Melatonin (Melatonin) 3 mg PO QHS PRN PRN PRN Reason: INSOMNIA Metoprolol Succinate (Toprol Xl (Beta Berenice)) 50 mg PO BID [facility] Last Admin: 11/15/18 22:31 Dose: 50 mg Documented by: Morphine Sulfate () 1 - 2 mg IV Q4H PRN PRN PRN Reason: PAIN Ondansetron HCl (Zofran) 4 mg IV Q8H PRN PRN PRN Reason: NAUSEA/VOMITING Sodium Chloride () 10 - 40 ml IV UD PRN PRN Reason: SALINE FLUSH Medical Necessity - Tobacco Use Smoking Status: Never smoker Tobacco Use: Non-smoker Assessment/Plan All Active Problems (Last Reviewed 01/23/18 @ 14:32 by Quin Taylor NP-C) GI bleed (Acute) Fall with injury (Acute) Unable to walk (Acute) Confusion (Acute) Debility (Acute) Encephalopathy (Acute) History of tonsillectomy (Resolved) History of total right knee replacement (Resolved) History of total left knee replacement (Resolved) Upper GI bleed (Acute) Borderline elevated troponin (Acute) Acute blood loss anemia (Acute) 1. Acute blood loss anemia secondary to GI bleed possibly a gastric ulcer/GERD -This is based on her history of recent excessive diclofenac usage for her back and leg pain -Hemoglobin today is 7.9, no transfusion at the moment -Continue with IV PPI -Appreciate general surgery assistance -Given her numbness and tingling we will also obtain a B12 and folic acid, her MCV initially was 99.3 -No sign of hemolysis with a normal T bili -We will obtain iron studies as I do not see them having been done 2. HTN/HLD/CAD with NSTEMI/hx SVT -Systolic blood pressure stable -Continue with metoprolol -Hold aspirin 3. Sarcoidosis with a history of spinal lesion and myopathy -This is a chronic condition that she does not appear to be on any therapy for except for baclofen -She did have an MRI of her brain in 2014 that did not show any signs of neurosarcoid -Continue with PT/OT 4. Obesity -BMI of 35.1 -Discussed lifestyle modifications with dieting and exercise DVT: SCDs Code Visit Inpatient E&M: 40339 Subs Hosp L2
[2018-11-16 09:19] LABS: Ferritin 114 ng/mL (8-252); Iron 70 ug/dL (50-170); Iron Binding Capacity,Total 260 ug/dL (250-450); PERCENT IRON SATURATION 26.9 % (15.0-55.0)
[2018-11-16 09:30] LABS: Vitamin B12 891 pg/mL (211-911)
[2018-11-16] MEDS: Metoprolol(XL)Succ 50 MG Tablet PO ×2 (09:47→21:38)
[2018-11-16] MEDS: Acetaminophen 325 MG Tablet 650 MG PO ×3 (09:49→22:43)
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
--- NOTE | 2018-11-16 11:30 | CASEMGMT ---
ELIE CHOWDHURY Face to Face with patient for initial transition planning/care coordination assessment. RN LUCIANA introduced self and role at [facility]. Patient lying in bed, alert and oriented. Patient willing to participate in assessment and is able to answer all questions appropriately. Care providers, pharmacy, and demographics verified. Patient wishes to discharge home, with resumption of outpatient therapy at [facility]. Patient states she has no further needs or concerns at this time. CM to follow for discharge planning needs that may arise. PCP: Sp Specialists: Frances, teenage program director; Jarrod, husker operator; Garth, urologist Preferred Pharmacy: [facility] Insurance: [employer] Prescription Benefit: yes Living Will/HPOA: yes, sister Obdulia Lanza LNOK: sister Living Arrangements: Patient lives with sister in a Condo with 2 steps to enter. Patient states she is independent but sister helps with bathing. Transportation: sister DME/HHC: Patient states she has cane, walker, shower chair, and grab bars. Patient states she had HHC previously with [facility]. Patient denies previous SNF. Patient states she is currently going to [facility] for outpatient therapy. Disposition Plan: Patient to discharge home with resumption of outpatient therapy, family support, and follow-up plans in place. Marisela WERNER, RN, CM
--- NOTE | 2018-11-16 12:51 | EKG12_ITS ---
Test Reason : PRE-OP Blood Pressure : / mmHG Vent. Rate : 062 BPM Atrial Rate : 062 BPM P-R Int : 244 ms QRS Dur : 090 ms QT Int : 392 ms P-R-T Axes : 041 -10 041 degrees QTc Int : 397 ms Sinus rhythm with 1st degree A-V block Otherwise normal ECG When compared with ECG of 12-AUG-2017 06:20, HI interval has increased Vent. rate has decreased BY [address] no longer depressed in Inferior leads ST no longer depressed in Anterolateral leads T wave inversion no longer evident in Lateral leads Confirmed by CALDERON SR ([id number]), editor map DIYA BUSTAMANTE ([id number]) on 11/23/2018 2:35:21 PM Referred By: NAOMI Confirmed By:CALDERON SR
--- NOTE | 2018-11-16 14:44 | CHAPLAIN ---
Type of Pastoral Visit _x__ Initial Visit ___ Follow-up Visit ___ On-call Visit ___ General Patient Visit ___ Spiritual Assessment ___ Family Conference ___ Bereavement ___ Rapid Response ___ Code Blue ___ Other (describe below) Pastoral Care Referral From _x__ Patient ___ Family ___ Nurse ___ Physician ___ Slp Teacher ___ Plating Operator ___ Other (describe below) Sacrament/Intervention _x__ Active listening ___ Anointing ___ Hoahaoism ___ Bereavement ___ Communion _x__ Patricia exploration ___ _x__ Life review _x__ Prayer ___ Reconciliation ___ Sacrament of Sick _x__ Supportive presence ___ Wedding ___ Other (describe below) Pastoral Comments
[2018-11-17] VITALS (15 sets, daily range): BP systolic 117–155; BP diastolic 56–79; PULSE 52–77; RESP 16; TEMP 36.8–37.2; O2SAT 93–100
[2018-11-17] MEDS: 0.9% Normal Saline 1,000 ML 100 ML IV ×3 (02:00→23:27)
[2018-11-17 06:07] LABS: Absolute Lymphocyte Count 1.33 X10^3/uL (0.83-4.51); Absolute Neutrophil Count 3.5 X10^3/uL (2.0-7.7); Basophil# 0.03 X10^3/uL; Basophil% 0.5 % (0-1); Eosinophil# 0.17 X10^3/uL; Hematocrit 24.6 % (37-47); Hemoglobin 7.9 g/dL (12.0-15.0); Lymphocyte # 1.33 X10^3/ul (4.0); Lymphocyte % 23.5 % (19-41); Mean Corp Hgb Conc 32.1 g/dL (32-36); Mean Corpuscular Hgb 32.1 pg (27.0-32.0); Monocyte# 0.61 X10^3/uL; Monocyte% 10.8 % (0-10); NRBC Flagged by Analyzer 0 % (0-5); Neutrophil # 3.48 X10^3/uL (2.7-7.7); Neutrophil % 61.7 % (47-70); Platelet Count 182 K/mm3 (150-450); RBC Distribution Width CV 13.9 % (11.6-14.6); RBC Distribution Width SD 49.3 fl (35.1-43.9); Red Blood Count 2.46 M/mm3 (4.2-5.4); White Blood Count 5.7 K/mm3 (4.4-11.0)
--- NOTE | 2018-11-17 08:42 | PCM.PN.HOSP ---
Patient Problems: Active and Suspected Problems (Last Reviewed 11/16/18 @ 10:50 by Frances Delgado PA-C) GI bleed (Acute) Subjective: Doing well, feels much better than yesterday. Hemoglobin stabilized since yesterday. Vitals/I&O's: Vital Signs Temp Pulse Resp BP Pulse Ox 98.4 F 62 16 149/71 H 93 11/17/18 02:50 11/17/18 02:50 11/17/18 02:50 11/17/18 02:50 11/17/18 07:30 Oxygen Delivery Method Room Air Weight: 173 lb 11.588 oz Body Mass Index (BMI) 35.1 Finger Stick Blood Glucose 122 Intake and Output for Last 24 Hours 11/15/18 11/16/18 11/17/18 23:59 23:59 23:59 Intake Total 726 / 726 1384 / 2717 195 / 1955 Output Total 200 / 200 500 / 1400 1300 / 1300 Balance 526 / 526 884 / 1317 655 / 655 General: Alert, Oriented x3, Cooperative, No apparent distress HEENT: Atraumatic, PERRLA, EOMI, Normocephalic Oral: Moist Mucosa Neck: Supple, No JVD Lungs: Clear to auscultation, Normal air movement, No rhonchi, No wheeze, No rales, Diminished Cardiovascular: Regular rate, Regular Rhythm, Normal S1, Normal S2, Murmur - 2/6 MANJIT chronic Abdomen: Soft, Non Tender, Non-Distended, No Hepato-splenomegaly Extremities: No edema, Capillary Refill Less than 3 Seconds Skin: No rashes, No breakdown Neurological: - - Sensation is decreased in her extremities, decreased on the right lower extremity compared to the left. She is able to move all extremities against gravity however she does have difficulty with resistance. Psych/Mental Status: Normal Affect, Appropriate Microbiology Past 72 Hours 11/15/18 15:06 Stool Stool Occult Blood (KULWANT) - Final Laboratory Results 11/16/18 05:48: Iron 70, TIBC 260, Iron Saturation 26.9, Ferritin 114, Folate 59.60 H 11/16/18 05:48: Vitamin B12 891 11/17/18 05:58: WBC 5.7, RBC 2.46 L, Hgb 7.9 L, Hct 24.6 L, MCV 100.0 H, MCH 32.1 H, MCHC 32.1, RDW Std Deviation 49.3 H, RDW Coeff of Ok 13.9, Plt Count 182, MPV 9.0, Immature Gran % (Auto) 0.500, Neut % (Auto) 61.7, Lymph % (Auto) 23.5, [place] % (Auto) 10.8 H, Eos % (Auto) 3.0, Baso % (Auto) 0.5, Absolute Neuts (auto) 3.5, Absolute Lymphs (auto) 1.33, Nucleated RBC % 0 Current Medications Acetaminophen (Tylenol) 650 mg PO Q6H PRN PRN PRN Reason: Non-cardiac pain (mod-severe) Last Admin: 11/16/18 22:43 Dose: 650 mg Documented by: Hydrocodone Bitart/Acetaminophen ([place] 5mg-325mg) 1 - 2 tablet PO Q6H PRN PRN PRN Reason: MOD-SEVERE PAIN (4-10/10) Last Admin: 11/15/18 20:47 Dose: 1 tablet Documented by: Albuterol Sulfate (Ventolin Aerosols) 2.5 mg INHALATION Q2H PRN PRN PRN Reason: dyspnea, wheezing Baclofen (Lioresal) 10 mg PO QHS [facility] Last Admin: 11/16/18 21:35 Dose: Not Given Documented by: Dextrose (D50w Syringe) 0 gm IV X1 PRN; Protocol PRN Reason: Hypoglycemia Glucagon () 1 mg IM .X1 PRN PRN Reason: Hypoglycemia Hydralazine HCl (Apresoline Iv) 10 mg IV Q4H PRN PRN PRN Reason: SBP > 160 Sodium Chloride () 1,000 mls @ 100 mls/hr IV .Q10H [facility] Last Admin: 11/17/18 06:26 Dose: 100 mls/hr Documented by: Pantoprazole Sodium 40 mg/ (Sodium Chloride) 110 mls @ 330 mls/hr IV Q12 [facility] Last Admin: 11/16/18 21:38 Dose: 330 mls/hr Documented by: Melatonin (Melatonin) 3 mg PO QHS PRN PRN PRN Reason: INSOMNIA Metoprolol Succinate (Toprol Xl (Beta Berenice)) 50 mg PO BID [facility] Last Admin: 11/16/18 21:38 Dose: 50 mg Documented by: Morphine Sulfate () 1 - 2 mg IV Q4H PRN PRN PRN Reason: PAIN Ondansetron HCl (Zofran) 4 mg IV Q8H PRN PRN PRN Reason: NAUSEA/VOMITING Sodium Chloride () 10 - 40 ml IV UD PRN PRN Reason: SALINE FLUSH Medical Necessity - Tobacco Use Smoking Status: Never smoker Tobacco Use: Non-smoker Assessment/Plan All Active Problems (Last Reviewed 11/16/18 @ 10:50 by Frances Delgado PA-C) GI bleed (Acute) Fall with injury (Acute) Unable to walk (Acute) Confusion (Acute) Debility (Acute) Encephalopathy (Acute) History of tonsillectomy (Resolved) History of total right knee replacement (Resolved) History of total left knee replacement (Resolved) Upper GI bleed (Acute) Borderline elevated troponin (Acute) Acute blood loss anemia (Acute) 1. Acute blood loss anemia secondary to GI bleed possibly a gastric ulcer/GERD -This is based on her history of recent excessive diclofenac usage for her back and leg pain -Hemoglobin today is 7.9, no transfusion at the moment -Continue with IV PPI -Appreciate general surgery assistance -B12 and folic acid were normal -No sign of hemolysis with a normal T bili -Iron studies were unremarkable 2. HTN/HLD/CAD with NSTEMI/hx SVT -Systolic blood pressure stable -Continue with metoprolol -Hold aspirin 3. Sarcoidosis with a history of spinal lesion and myopathy -This is a chronic condition that she does not appear to be on any therapy for except for baclofen -She did have an MRI of her brain in 2014 that did not show any signs of neurosarcoid, however she does not follow with geographical historian -Reason for her lack of follow-up is because she is afraid that it means that she will need to be on chronic steroids, explained to her that there are other long-term maintenance medications for sarcoid available. I continue to recommend with that she follow-up with with the geographical historian for maintenance treatment of especially she is had spinal lesions and chronic bilateral upper and lower extremity numbness and tingling. -Continue with PT/OT 4. Obesity -BMI of 35.1 -Discussed lifestyle modifications with dieting and exercise DVT: SCDs Code Visit Inpatient E&M: 12097 Subs Hosp L2
--- NOTE | 2018-11-17 12:30 | EGD_PTH ---
PATIENT: JUWAN DAVIES LOC: MS3 U#:[id number] AGE/SX: 73/F ROOM: WV322 RE11/15/[address]: Dr. Gabo Hernandez MD : 1945 BED: 1 DIS: 11/18/2018 SPEC #: [id number] RECD: 11/17/18 13:53 STATUS: JUVENCIO KATHY #: [id number] CATRACHITA: 11/17/18 12:[address]: Fahad Barrientos DEPT: SURGICAL PATHOLOGY RECD BY: Umesh Troy ENTERED: 11/17/18 14:04 SP TYPE: EGD BIOPSY [facility] DR: MD Dr. Gabo Mayen MD Dr. Tai Chi Kwok, MD Tissues: Gastric mucous membrane Procedures: Surgery Specimen Level IV HEADER OPERATION: EGD ([facility] [place]) PRE-OP DIAGNOSIS: Screen TISSUE SUBMITTED: Antral biopsy for H. pylori and pathology MICROSCOPIC DIAGNOSIS Antral biopsy: Mild gastritis. See microscopic description and comment. MICHAEL:idris 11/18/18 COMMENT The results of immunohistochemistry for Helicobacter pylori will be reported separately ([id number]). MICROSCOPIC DESCRIPTION Slides are reviewed. The specimen shows fragments of gastric mucosa with chronic inflammatory cell infiltrates in the lamina propria consisting of lymphocytes and plasma cells, consistent with mild chronic gastritis. GROSS DESCRIPTION Received in fixative is one container labeled with the patient's name and designated antral biopsy. The specimen consists of one irregular fragment of light santos soft tissue that measures 0.5 x 0.3 x 0.1 cm. The specimen is totally submitted in one cassette. / MICHAEL:idris 11/17/18 TC:3 CPT: 65409
--- NOTE | 2018-11-17 12:30 | IMM_PTH ---
PATIENT: JUWAN DAVIES LOC: MS3 U#:[id number] AGE/SX: 73/F ROOM: ND322 RE11/15/[address]: Dr. Gabo Hernandez MD : 1945 BED: 1 DIS: 11/18/2018 SPEC #: [id number] RECD: 11/17/18 14:23 STATUS: JUVENCIO RETarik #: [id number] CATRACHITA: 11/17/18 12:[address]: Fahad Barrientos DEPT: IMMUNOHISTOCHEMISTRY RECD BY: Eliane Lewis ENTERED: 11/17/18 14:23 SP TYPE: IMMUNO OTHR DR: MD Dr. Gabo Mayen MD Dr. Tai Chi Kwok, MD Tissues: Stomach, NOS Procedures: H Pylori (initial) PHYSICIAN & INSTITUTION [place] [id number] SPECIMEN INFORMATION: Tissue Source: Antral biopsy Clinical Info: Screen Specimen Number: [id number] CPT code: 10095 METHODOLOGY: Deparaffinized sections of prefer/formalin-fixed tissue or PAP/DQ stained slides are incubated with monoclonal/polyclonal antibodies/oligonucleotide probes. Localization is made via biotin free immunoperoxidase method. Appropriate controls are performed and reacted as expected. Results on target cell population are indicated in the following table: RESULTS: ANTIBODY / CLONE RESULT H Pylori (polyclonal) negative These tests were developed and their performance characteristics determined by [facility]. They may not have been cleared or approved by the U.S. Food and Drug Administration. The FDA has determined that such clearance or approval is not necessary. INTERPRETATION: Antral biopsy: Negative for Helicobacter pylori organisms. SJ:idris 11/18/18
--- NOTE | 2018-11-17 13:11 | PCA ---
pt off floor
[2018-11-17] MEDS: Acetaminophen 325 MG Tablet 650 MG PO (20:13)
[2018-11-17] MEDS: Metoprolol(XL)Succ 50 MG Tablet PO (22:06)
[2018-11-18] VITALS (9 sets, daily range): BP systolic 112–185; BP diastolic 68–91; PULSE 66–79; RESP 16–20; TEMP 36.9–37.1; O2SAT 94–98
[2018-11-18 05:41] LABS: Absolute Lymphocyte Count 1.19 X10^3/uL (0.83-4.51); Absolute Neutrophil Count 3.5 X10^3/uL (2.0-7.7); Basophil# 0.03 X10^3/uL; Basophil% 0.5 % (0-1); Eosinophil# 0.17 X10^3/uL; Eosinophils% 3.1 % (0-5); Hematocrit 25.6 % (37-47); Hemoglobin 8.1 g/dL (12.0-15.0); Lymphocyte # 1.19 X10^3/ul (4.0); Lymphocyte % 21.4 % (19-41); Mean Corp Hgb Conc 31.6 g/dL (32-36); Mean Corpuscular Volume 101.2 fL (81-99); Mean Platelet Vol. 9.2 fl (6.2-12.0); Monocyte# 0.65 X10^3/uL; Monocyte% 11.7 % (0-10); NRBC Flagged by Analyzer 0 % (0-5); Neutrophil # 3.47 X10^3/uL (2.7-7.7); Neutrophil % 62.6 % (47-70); Platelet Count 189 K/mm3 (150-450); RBC Distribution Width CV 14.1 % (11.6-14.6); RBC Distribution Width SD 50.8 fl (35.1-43.9); Red Blood Count 2.53 M/mm3 (4.2-5.4); White Blood Count 5.6 K/mm3 (4.4-11.0)
--- NOTE | 2018-11-18 08:44 | DCINST_ITS ---
- Discharge Diagnoses Current Active Problems: Current Active and Chronic Problems (Last Reviewed 11/16/18 @ 10:50 by Frances Delgado PA-C) GI bleed (Acute) You will use the following diet at home:: Calorie/Carbohydrate Controlled (specify 1200, 1400, etc) - 1400 Your food should be the consistency of: Regular Your liquids should be the consistency of: Regular/Thin Discharge Activity: Return to Normal Activity, No Restrictions Call your doctor if you observe: Fever of 101 or Higher, Shortness of breath, Dizziness, Fainting spells, Swelling in the ankles, Chest pain, Increased palpitations (irregular heartbeat) Instructions: What Is GERD?, Medications for GERD Additional Instructions: Repeat CBC in a week with her PCP to evaluate your hemoglobin level Allergies/Adverse Reactions: Allergies hydrochlorothiazide Allergy (Intermediate, Verified 11/10/18 11:08) low sodium lisinopril Allergy (Verified 11/10/18 11:08) Angioedema amlodipine [From Norvasc] Adverse Reaction (Severe, Verified 11/10/18 11:08) Freezes up limbs nifedipine [From Nifedical XL] Adverse Reaction (Severe, Verified 11/10/18 11:08) Freezes up limbs alendronate sodium [From Fosamax] Adverse Reaction (Intermediate, Verified 11/10/18 11:08) GI upset codeine Adverse Reaction (Verified 11/10/18 11:08) Unknown ibuprofen Adverse Reaction (Verified 11/10/18 11:08) Other HCTA Adverse Reaction (Intermediate, Uncoded 11/10/18 11:08) Low sodium LIPITOR Adverse Reaction (Uncoded 11/10/18 11:08) Unknown Medications to take at Discharge Cholecalciferol (VIT D3) [Vitamin D3] 5,000 unit PO DAILY 05/22/14 Lactulose [Chronulac] 20 gm PO DAILY PRN 07/15/16 folic acid-vit B6-vit B12 0.5 mg-5 mg-0.2 mg tablet 1 tab PO QDAY 07/02/17 Metoprolol(XL)Succ [Toprol Xl (Beta Berenice)] 50 mg PO BID #60 tab 08/27/17 acetaminophen 500 mg tablet 500 mg PO Q4H PRN 07/14/18 magnesium 250 mg tablet 500 mg PO BID tab 07/14/18 vitamin B complex capsule 1 cap PO DAILY 07/14/18 Pantoprazole Sodium [Protonix] 40 mg PO DAILY #30 tab 11/18/18 The following prescriptions were given: Pantoprazole Sodium [Protonix] 40 mg PO DAILY #30 tab Transmission Status: Pending to [facility] Primary Care Physician: Michael Snowden Chi, MD [Primary Care Provider] - Please follow up with your Primary Care Physician in: 3-5 days Test Results: Test results from this visit will be discussed in further detail at your follow- up appointment, if applicable.
--- NOTE | 2018-11-18 08:47 | DS.PCM_ITS ---
Discharge Date and Diagnosis - Problem List Patient Problems: Active and Suspected Problems (Last Reviewed 11/16/18 @ 10:50 by Frances Delgado PA-C) GI bleed (Acute) Date of Admission: 11/15/18 Date of Discharge: 11/18/18 - Primary Discharge Diagnosis Active and Suspected Problems (Last Reviewed 11/16/18 @ 10:50 by Frances Delgaod PA-C) GI bleed (Acute) - Secondary Discharge Diagnosis Chronic Problems (Last Reviewed 11/16/18 @ 10:50 by Frances Delgado PA-C) GERARDO (obstructive sleep apnea) (Chronic) Anxiety (Chronic) Osteoarthritis (Chronic) Stroke (Chronic) Constipation (Chronic) BMI 40.0-44.9, adult (Chronic) Gastroparesis (Chronic) Myelopathy (Chronic) Spinal cord lesion (Chronic) Low back pain (Chronic) Myalgia and myositis (Chronic) Malaise and fatigue (Chronic) Supraventricular tachycardia (Chronic) Palpitations (Chronic) Subsequent non-ST elevation (NSTEMI) myocardial infarction (Chronic) 02/16/15 Aortic stenosis (Chronic) Hypertension (Chronic) Sarcoidosis (Chronic) Obesity (BMI 30-39.9) (Chronic) Malabsorption (Chronic) Hospital Course and Treatment Imaging Results: None Consults: General Surgery Operations: None Procedures: EGD - Healing, non-bleeding ulcer, full report pending Summary of Care Provided: Per HPI: The patient is a 73 y/o F w/ PMHx: Obesity, HTN, HLD, Sarcoidosis with spinal cord lesion, Hx Myelopathy unclear etiology, Chronic Back Pain, Hx NSTEMI, Hx SVT, Hx Prior GI bleed, Gastric, Chronic gastroparesis who presents to the [facility] ED on 11/15/18 w/ history of being evaluated earlier in the week following evaluation by Dr. Snowden with noted worsening discomfort to the lumbar spine with shooting pains down the left leg with initiation on the steroids, muscle relaxants and diclofenac however she noted on Friday taking excess diclofenac as well as initial dose of muscle relaxant causing notable fatigue and concern prompting ED evaluation with at that time recommended discontinuation of this regimen and discharge to home however she now returns with onset starting Friday evening dark black tarry appearing stools with increased weakness, fatigue and occasional lightheadedness and dizziness. She does state that she has some mild right upper quadrant and epigastric discomfort with palpation, deep however difficult assessment as patient does have chronic paresthesias below the neck. Work-up in the ED included T 97, heart rate 69, BP 136/66, respiratory rate 16, 96% on room air, CBC with WBC 7.1, hemoglobin 8.9, platelet 215 without market shift, pending coags, unremarkable CMP, negative stool guaiac. Most recent hemoglobin noted prior was on September 17, 2018, 13.2. Hospital Course: 1. Acute blood loss anemia secondary to GI bleed possibly gastric ulcer/GERD- 73-year-old female in for diclofenac about a week ago, presented to the ER with fatigue, and intermittent lightheadedness and dizziness. She was found to have a drop in hemoglobin from 13.2 August with a hemoglobin of 8.9 on admission. She ultimately dropped to 7.9 prior to her EGD which demonstrated a healing nonbleeding gastric ulcer. Her stool guaiac was negative, and she was not given any blood products while here on the day of discharge to 8.1. She will need to follow-up with her primary care doctor in 3 to 5 days for repeat CBC to make sure that her hemoglobin is stable. Of note I also checked her iron studies as well as B12 and folate, all of which were normal. She did have a normal T bili which ruled out any hemolysis as a cause for her anemia. In the meantime, I discussed with her discontinuing all NSAIDs, and aspirin. She was discharged on Protonix 40 mg twice daily for 7 days and she can decrease to daily dosing. I discussed with her that if she gets lightheaded or notices any bloody stools and she is to return to the hospital immediately, she understands the plan and since she feels better would like to go home today. 2. HTN/HLD/CAD with NSTEMI/hx of SVT -her blood pressures were stable and she was continued on her home metoprolol. Given the fact that she has had a previous GI bleed and recently had a GI bleed, would recommend no aspirin or Plavix. 3. 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 She does not see a warehouse administrator because she states that the last time she was seen by one, they put her on prednisone, and she did not like how she was on it. Discussed with her that there are other therapies for sarcoidosis that are nonsteroidal in nature and that she should follow-up with warehouse administrator as an outpatient. Also of note, sarcoidosis can cause anemia which may explain why she had a drop in hemoglobin with worsening numbness and tingling, with a nega tive stool guaiac. 4. her other medical diagnoses were evaluated and her home medications were continued where appropriate Patient Problems: Active and Suspected Problems (Last Reviewed 11/16/18 @ 10:50 by Frances Delgado PA-C) GI bleed (Acute) Objective: General: Alert, Oriented x3, Cooperative, No apparent distress HEENT: Atraumatic, PERRLA, EOMI, Normocephalic Oral: Moist Mucosa Neck: Supple, No JVD Lungs: Clear to auscultation, Normal air movement, No rhonchi, No wheeze, No rales, Diminished Cardiovascular: Regular rate, Regular Rhythm, Normal S1, Normal S2, Murmur - 2/6 MANJIT chronic Abdomen: Soft, Non Tender, Non-Distended, No Hepato-splenomegaly Extremities: No edema, Capillary Refill Less than 3 Seconds Skin: No rashes, No breakdown Neurological: - - Sensation is decreased in her extremities. She is able to move all extremities against gravity however she does have difficulty with resistance. Psych/Mental Status: Normal Affect, Appropriate - Physical Exam Vital Signs Temp Pulse Resp BP Pulse Ox 98.8 F 67 18 185/87 H 96 11/18/18 08:26 11/18/18 08:26 11/18/18 08:26 11/18/18 08:26 11/18/18 08:26 Oxygen Delivery Method Room Air Weight: 173 lb 11.588 oz Body Mass Index (BMI) 35.1 Finger Stick Blood Glucose 122 Intake and Output for Last 24 Hours 11/16/18 11/17/18 11/18/18 23:59 23:59 23:59 Intake Total 1384 / 2717 2712 / 2832 813.33 / 813.33 Output Total 500 / 1400 1900 / 2600 950 / 950 Balance 884 / 1317 812 / 232 -136.67 / -136.67 Microbiology Past 72 Hours 11/15/18 15:06 Stool Occult Blood (KULWANT) - Final Stool Laboratory Tests Past 24 Hrs 11/18/18 05:20 WBC 5.6 RBC 2.53 L Hgb 8.1 L Hct 25.6 L MCV 101.2 H MCH 32.0 MCHC 31.6 L RDW Std Deviation 50.8 H RDW Coeff of Ok 14.1 Plt Count 189 MPV 9.2 Immature Gran % (Auto) 0.700 Neut % (Auto) 62.6 Lymph % (Auto) 21.4 Sargent % (Auto) 11.7 H Eos % (Auto) 3.1 Baso % (Auto) 0.5 Absolute Neuts (auto) 3.5 Absolute Lymphs (auto) 1.19 Nucleated RBC % 0 Discharge Activity: Return to Normal Activity, No Restrictions Call your doctor if you observe: Fever of 101 or Higher, Shortness of breath, Dizziness, Fainting spells, Swelling in the ankles, Chest pain, Increased palpitations (irregular heartbeat) Home Medications: Medications to take at Discharge Cholecalciferol (VIT D3) [Vitamin D3] 5,000 unit PO DAILY 05/22/14 Lactulose [Chronulac] 20 gm PO DAILY PRN 07/15/16 folic acid-vit B6-vit B12 0.5 mg-5 mg-0.2 mg tablet 1 tab PO QDAY 07/02/17 Metoprolol(XL)Succ [Toprol Xl (Beta Berenice)] 50 mg PO BID #60 tab 08/27/17 acetaminophen 500 mg tablet 500 mg PO Q4H PRN 07/14/18 magnesium 250 mg tablet 500 mg PO BID tab 07/14/18 vitamin B complex capsule 1 cap PO DAILY 07/14/18 Pantoprazole Sodium [Protonix] 40 mg PO DAILY #30 tab 11/18/18 Following Prescrptions Were Given to Patient: Pantoprazole Sodium [Protonix] 40 mg PO DAILY #30 tab Transmission Status: Pending to [facility] Primary Care Physician: Michael Snowden Chi, MD [Primary Care Provider] - Please follow up with your Primary Care Physician in: 3-5 days Patient Instructions: What Is GERD?, Medications for GERD Minutes spent on discharge:: 35 Patient Condition:: Stable Medical Necessity - Tobacco Use Smoking Status: Never smoker Tobacco Use: Non-smoker Meaningful Use Info Meaningful Use Diagnoses (Choose all that apply): None applicable Code Visit Inpatient E&M: 16830 Disch Hosp
[2018-11-18] MEDS: Acetaminophen 325 MG Tablet 650 MG PO (09:36)
[2018-11-18] MEDS: Metoprolol(XL)Succ 50 MG Tablet PO (09:37)
[2018-11-18] MEDS: hydrALAZINE 20 MG/ML Vial 10 MG IV (09:37)
[2018-11-18] MEDS: 0.9% NaCl Peripheral Flush Adult/Peds IV (09:38)
--- NOTE | 2018-11-19 15:51 | CASEMGMT ---
ELIE CHOWDHURY Discharge Follow-up Phone Call: REINA: Jasmyne Strata: 4 Call Date: 11/19/18 Discharge Date: 11/18/18 Time of Call: 1550 Duration: 3 min Admitting Diagnosis: GI Bleed ELIE CHOWDHURY completed follow-up phone call after recent hospitalization. Patient states that she is doing okay. Patient had no questions or concerns regarding discharge instructions. Patient was able to fill prescriptions without any issues. Patient is aware of follow-up appt with PCP Dr. Snowden on 11/24/18. Patient suggested lower beds for short people and repositioning white information board to be positioned in front of the bed so that it is easier to see. Patient denied further questions or concerns at this time.
== END 2018-11-18 16:10 | disposition home or self-care (01) | DRG 378 ==
LOC: ED 16:01 → MS3 16:05
PROVIDERS: Surgery; Admitting Provider Family Medicine; Emergency Provider Physician Assistant; Family Provider Family Medicine Geriatric Medicine; PCP Family Medicine Geriatric Medicine; Visit Provider Family Medicine
PROC: 0DJ08ZZ Inspection of Upper Intestinal Tract, Via Natural or Artificial Opening Endoscopic (ICD-10-PCS; CPT 43235; principal; 2018-11-17 12:25)
DX: K25.4 Chronic or unspecified gastric ulcer with hemorrhage (principal); D62 Acute posthemorrhagic anemia; I47.1 Supraventricular tachycardia; D86.9 Sarcoidosis, unspecified; M54.16 Radiculopathy, lumbar region; I25.10 Atherosclerotic heart disease of native coronary artery without angina pectoris; I35.0 Nonrheumatic aortic (valve) stenosis; I10 Essential (primary) hypertension; E78.5 Hyperlipidemia, unspecified; K21.9 Gastro-esophageal reflux disease without esophagitis; M19.90 Unspecified osteoarthritis, unspecified site; G47.33 Obstructive sleep apnea (adult) (pediatric); E66.9 Obesity, unspecified; Z68.35 Body mass index [BMI] 35.0-35.9, adult; Z79.899 Other long term (current) drug therapy; I25.2 Old myocardial infarction; Z87.11 Personal history of peptic ulcer disease; Z86.73 Personal history of transient ischemic attack (TIA), and cerebral infarction without residual deficits; Z96.653 Presence of artificial knee joint, bilateral
CPT/HCPCS: 36415; 80048; 80053; 82274; 82607; 82728; 82746; 83540; 83550; 85014; 85018; 85025; 85610; 85730; 86850; 86900; 86901; 88305; 88342; 93005; 97110; 97162; 97166; 97530; 97802; 99285; J7030; A4216

== ENCOUNTER → 2018-11-24 12:04 | Outpatient (CLI) | payer MEDICARE, SELFPAY ==
[2018-11-15 16:43] VITALS: BMI 35.1
[2018-11-24 12:50] LABS: Absolute Lymphocyte Count 0.86 X10^3/uL (0.83-4.51); Absolute Neutrophil Count 4.5 X10^3/uL (2.0-7.7); Basophil# 0.03 X10^3/uL; Basophil% 0.5 % (0-1); Eosinophils% 1.7 % (0-5); Hematocrit 28.9 % (37-47); Lymphocyte # 0.86 X10^3/ul (4.0); Lymphocyte % 14.3 % (19-41); Mean Corp Hgb Conc 31.1 g/dL (32-36); Mean Corpuscular Hgb 30.8 pg (27.0-32.0); Mean Platelet Vol. 9.6 fl (6.2-12.0); Monocyte# 0.46 X10^3/uL; Monocyte% 7.7 % (0-10); NRBC Flagged by Analyzer 0 % (0-5); Neutrophil # 4.53 X10^3/uL (2.7-7.7); Neutrophil % 75.5 % (47-70); Platelet Count 249 K/mm3 (150-450); RBC Distribution Width CV 14.4 % (11.6-14.6); RBC Distribution Width SD 52.7 fl (35.1-43.9); Red Blood Count 2.92 M/mm3 (4.2-5.4)
== END ==
PROVIDERS: Family Provider Family Medicine Geriatric Medicine; PCP Family Medicine Geriatric Medicine; Visit Provider Family Medicine Geriatric Medicine
DX: D64.9 Anemia, unspecified (principal)
CPT/HCPCS: 36415; 85025

== ENCOUNTER 2019-01-26 13:30 | Outpatient (RCR) | payer MEDICARE, SELFPAY ==
[2018-07-14 14:36] VITALS: BMI 36.3
--- NOTE | 2018-08-11 15:01 | HP.PTEVAL ---
Patient's Visit Information JUWAN DAVIES is a 72 year old F referred to Physical Therapy by Michael Snowden MD with a diagnosis of RC syndrome, gait difficulty, and falls. Date of Evaluation: 08/11/18 Physical Therapist: CHAR Boogie - Visit Plan Frequency: 2x /Week Duration: 2 Months Plan: 2X/ week for 4 weeks for pulleys. AAROM and progressing to AROM, below 90 degrees strenthening and scapular and postural exercise with HEP. Also work on I standing balance, weight shifting on feet, turns, gait mechanics with HEP - Subjective Findings: Pt has fallen a few times since January and last time she fell she thinks that she jammed her shoulders and has gottne worse. He shoulders are sore and tight. SHe has a hard time raising her R shoulder and the pain is across her shoulders. Other falls she can;t remember them but she knows that she did not go to the hospital and she had help getting up. She sleeps on her R side and once she gets situated she sleeps ok. She has been using her walker for 2 years now all the time. 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 No surgery can be done at this time. One story home....SHe has a walk in shower and has help getting in and out of the shower. - Pain R shoulder pain Pain Intensity (Out of 10): 5 Comment: with movment L shoulder pain Pain Intensity (Out of 10): 5 Comment: with movement - Objective Gait: walks with a rolling walker with decreased stride length. LE MMT: B hip flex 4/5, sitting in chair hip abd 3+/5, B leg ext 4-/5 and B knee flex 4/5, R ankle DF 3-/5 and L 4-/5.... pt has decreased ability to heel lift. R shoulder AROM: abd approx 90 degrees, flexion approx 90 degrees,. L shoulder AROM: abd approx 90 degrees, flexion approx 100 degrees,. Palpation: no under acromiion tenderness. UE MMT: R ER 3-, IR 3+, bicep 4-/5, flexion and abd 3-/5. L: ER 3-, IR 3+, bicep 4-/5, flexion and abd 3-/5. Pt is able to stand for 5 seconds with WBOS and then needed UE support. Pt is able to turn 360 degrees with therapist UE MMT with very little ability to pick feet up from the floor. Pt has trouble with weight shifting her feet to control her standing balance. SIt to stand: always uses her arms to get up from the chair. - Goals Goal 1:: I HEP Goal Time Frame: 4-6 Weeks Goal 2:: Increase R shoulder and L shoulder AROM to 120 degrees 1/10 with elevation. Goal Time Frame: 4-6 Weeks Goal 3:: Increase B shoulder strength to 4-/5 ER/IR and flex and abd to 3+/5 Goal Time Frame: 4-6 Weeks Goal 4:: Be able to stand indep for 30 seconds to 1 min without UE support or LOB. ( inside // bars or wtih safety assistance as needed). Goal Time Frame: 4-6 Weeks Goal 5:: Increase LE strength by 1/2 muscle grade ( at time of eval: LE MMT: B hip flex 4/5, sitting in chair hip abd 3+/5, B leg ext 4-/5 and B knee flex 4/5, R ankle DF 3-/5 and L 4-/5.... pt has decreased ability to heel lift). Goal Time Frame: 4-6 Weeks - Rehabilitation Potential Rehabilitation Potential: Good - Anticipated Interventions Patient/Client Instruction: Educate patient on: Condition, Plan of Care For the Purpose of:: To decrease pain, To increase ROM, To improve nutrient delivery to tissue, To improve muscle performance and motor function, To improve ability to perform ADL's, To increase tolerance to activity/condition/position, To improve performance and independence with ADL's, To decrease level of supervision to perform tasks, To improve ability of physical actions for home/community/work/leisure, To improve gait and locomotor functions, To improve balance, To improve safety with gait Therapeutic Exercise to Include: Strength training, Endurance training, Balance training, Postural training, Flexibilty training, Gait and locomotor training, Passive ROM, Active ROM, Dynamic Lumbar Stabilization For the Purpose of:: To decrease pain, To increase ROM, To improve nutrient delivery to tissue, To improve muscle performance and motor function, To improve ability to perform ADL's, To increase tolerance to activity/condition/position, To improve performance and independence with ADL's, To decrease level of supervision to perform tasks, To improve ability of physical actions for home/community/work/leisure, To improve gait and locomotor functions, To increase flexibility/ROM, To improve balance, To improve safety with gait Functional Training to Include: Gait training For the Purpose of:: To improve safety with gait Thank you for the opportunity to evaluate your patient. For Medicare and Medicare HMO plans, please review the plan of care and approve it. It will need to be FAXED BACK to us at [phone] for Medicare purposes. For Medicare only, by signing this I certify the plan of care. Please let me know if there are questions or concerns regarding this plan of care. Physician Signature: Date:
--- NOTE | 2018-09-18 14:02 | HP.PTREVAL_ITS ---
Michael Snowden MD, It has been my pleasure to treat JUWAN DAVIES over the last 9 visits for RC syndrome, gait difficulty, and falls. Please see the progress note below for an update on the physical therapy plan of care! Subjective: She feels that her shoulders and that walking is better. Pt was late for therapy today. Objective/Function: With PROM pt has a lot of crepitus in the L shoulder more than the R shoulder. AROM: R shoulder Flexion 109 degrees, 75 ER, IT T8. L shoulder Flexion 114 degrees, 80 ER, IR T8. MMT: R ER 3+/5 and IR 4-/5, Flexion 3-/5. L ER 3+/5 and IR 4-/5, Flexion 3-/5. LE MMT: R hip flex 3+/5 and L hip flex 3-/5, B knee ext 4/5, B knee flex 4-/5, B hip abd 4-/5 and B hip add 3+/5. Sit to stand ....pt needs ue support but able to get up on the first attempt. Plan Plan: 2X/ week for 4 additional weeks for AAROM and AROM, below 90 degrees s trenthening and scapular and postural exercise with HEP. Also work on I standing balance, weight shifting on feet, turns, gait mechanics with HEP Goals Goal 1:: I HEP Goal Time Frame: 4-6 Weeks Goal Progress: Progressing Goal 2:: Increase R shoulder and L shoulder AROM to 120 degrees 1/10 with elevation. Goal Time Frame: 4-6 Weeks Goal Progress: Progressing Goal 3:: Increase B shoulder strength to 4-/5 ER/IR and flex and abd to 3+/5 Goal Time Frame: 4-6 Weeks Goal Progress: Progressing Goal 4:: Be able to stand indep for 1 min without UE support or LOB. ( inside // bars or wtih safety assistance as needed). and staggered stance. Goal Time Frame: 4-6 Weeks Goal Progress: Progressing Goal 5:: Increase LE strength by 1/2 muscle grade ( at time of eval: LE MMT: B hip flex 4/5, sitting in chair hip abd 3+/5, B leg ext 4-/5 and B knee flex 4/5, R ankle DF 3-/5 and L 4-/5.... pt has decreased ability to heel lift). Goal Time Frame: 4-6 Weeks Goal Progress: Progressing Anticipated Interventions Patient/Client Instruction: Educate patient on: Condition, Plan of Care For the Purpose of:: To decrease pain, To increase ROM, To improve nutrient delivery to tissue, To improve muscle performance and motor function, To improve ability to perform ADL's, To increase tolerance to activity/condition/position, To improve performance and independence with ADL's, To decrease level of supervision to perform tasks, To improve ability of physical actions for home/community/work/leisure, To improve gait and locomotor functions, To improve balance, To improve safety with gait Therapeutic Exercise to Include: Strength training, Endurance training, Balance training, Postural training, Flexibilty training, Gait and locomotor training, Passive ROM, Active ROM, Dynamic Lumbar Stabilization For the Purpose of:: To decrease pain, To increase ROM, To improve nutrient delivery to tissue, To improve muscle performance and motor function, To improve ability to perform ADL's, To increase tolerance to activity/condition/position, To improve performance and independence with ADL's, To decrease level of supervision to perform tasks, To improve ability of physical actions for home/community/work/leisure, To improve gait and locomotor functions, To increase flexibility/ROM, To improve balance, To improve safety with gait Functional Training to Include: Gait training For the Purpose of:: To improve safety with gait Please do not hesitate to contact me at [phone] by phone or if you have questions or concerns regarding this new plan of care! Sincerely, CHAR Boogie
--- NOTE | 2018-10-27 16:25 | HP.PTREVAL ---
Michael Snowden MD, It has been my pleasure to treat JUWAN DAVIES over the last 17 visits for RC syndrome, gait difficulty, and falls. Please see the progress note below for an update on the physical therapy plan of care! Subjective: Pt reported that she fell a week ago Friday and then Fri/fri. And then Friday she almost fell as well. Her L knee hurts. Had to call the squad once cause she could not get up. Pt feels that before her fall this week she felt her shoulders were getting better and pain was not as severe. She felt that her ROM was also getting better. She thought that her balance was getting better and her leg was getting better until she fell. Her increase in shoulder pain today was due to her falls pt believes. No dizziness.... Pt thinks that she fell asleep and fell out of a chair ( just slid out of the chair)... Objective/Function: standing balance: 60 seconds unsupported. Shoulder AROM: Lshoulder flexion 111 degrees, 112 defrees flexion. Shoulder MMT: LE MMT: R hip flex 3+/5 and L 3-/5, B knee ext 3+/5, B knee flex 4/5, B hip abd in sitting 4-/5 Plan Plan: 2X/ week for 3-4 additional weeks for AAROM and AROM, below 90 degrees strenthening and scapular and postural exercise with HEP. Also work on I standing balance, weight shifting on feet, turns, gait mechanics with HEP Goals Goal 1:: I HEP Goal Time Frame: 4-6 Weeks Goal Progress: Progressing Goal 2:: Increase R shoulder and L shoulder AROM to 120 degrees 1/10 with elevation. Goal Time Frame: 4-6 Weeks Goal Progress: Progressing Goal 3:: Increase B shoulder strength to 4-/5 ER/IR and flex and abd to 3+/5 Goal Time Frame: 4-6 Weeks Goal Progress: Progressing Goal 4:: Be able to stand indep for 1 min without UE support or LOB. ( inside // bars or wtih safety assistance as needed). and staggered stance. Goal Time Frame: 4-6 Weeks Goal Progress: Progressing Goal 5:: Increase LE strength by 1/2 muscle grade ( at time of eval: LE MMT: B hip flex 4/5, sitting in chair hip abd 3+/5, B leg ext 4-/5 and B knee flex 4/5, R ankle DF 3-/5 and L 4-/5.... pt has decreased ability to heel lift). Goal Time Frame: 4-6 Weeks Goal Progress: Progressing Anticipated Interventions Patient/Client Instruction: Educate patient on: Condition, Plan of Care For the Purpose of:: To decrease pain, To increase ROM, To improve nutrient delivery to tissue, To improve muscle performance and motor function, To improve ability to perform ADL's, To increase tolerance to activity/condition/position, To improve performance and independence with ADL's, To decrease level of supervision to perform tasks, To improve ability of physical actions for home/community/work/leisure, To improve gait and locomotor functions, To improve balance, To improve safety with gait Therapeutic Exercise to Include: Strength training, Endurance training, Balance training, Postural training, Flexibilty training, Gait and locomotor training, Passive ROM, Active ROM, Dynamic Lumbar Stabilization For the Purpose of:: To decrease pain, To increase ROM, To improve nutrient delivery to tissue, To improve muscle performance and motor function, To improve ability to perform ADL's, To increase tolerance to activity/condition/position, To improve performance and independence with ADL's, To decrease level of supervision to perform tasks, To improve ability of physical actions for home/community/work/leisure, To improve gait and locomotor functions, To increase flexibility/ROM, To improve balance, To improve safety with gait Functional Training to Include: Gait training For the Purpose of:: To improve safety with gait Please do not hesitate to contact me at [phone] by phone or if you have questions or concerns regarding this new plan of care! Sincerely, Dalila Ruiz, MPT
--- NOTE | 2018-11-24 14:27 | HP.PTREVAL_ITS ---
Michael Snowden MD, It has been my pleasure to treat JUWAN DAVIES over the last 21 visits for RC syndrome, gait difficulty, and falls. Please see the progress note below for an update on the physical therapy plan of care! Subjective: Pt reports that she is on a new med for a bleeding ulcer and it is making her ill. She reports that her endurance is low and she is so tired. She reports that she is supposed to work on her legs now as well as her arm. She was improving before she went into the hospital. Pt reported that her L leg hurt after walking back to the treatment area... 10/07 Objective/Function: Pt was fatigued by the end of treatment and had very low endurance. R shoulder flexion 118 degrees and L 121 degrees. R shld MMT: flex and abd 3+/4 and ER/IR 3+/5. L shld MMT: flex and abd 3+/5 and ER/IR 3+/5. LE MMT: L hip flex 3-/5 and R 3+/5, Knee ext 4-/5 B, knee flex B 4-/5, seated hip abd 4-/5 B. Standing balance: for 60 seconds without UE support Plan Plan: Finish remaining appointments to work toward goals focus endurance ( including walking endurance) and strength of legs with some ROM and strength of B shoulders. (AAROM and AROM, below 90 degrees strenthening and scapular and postural exercise with HEP. Also work on I standing balance, weight shifting on feet, turns, gait mechanics with HEP) Goals Goal 1:: I HEP Goal Time Frame: 4-6 Weeks Goal Progress: Progressing Goal 2:: Increase R shoulder and L shoulder AROM to 120 degrees 1/10 with elevation. Goal Time Frame: 4-6 Weeks Goal Progress: Progressing Goal 3:: Increase B shoulder strength to 4-/5 ER/IR and flex and abd to 3+/5 Goal Time Frame: 4-6 Weeks Goal Progress: Progressing Goal 4:: Be able to stand indep for 1 min without UE support or LOB. ( inside // bars or wtih safety assistance as needed). and staggered stance. Goal Time Frame: 4-6 Weeks Goal Progress: Goal Met Goal 5:: Increase LE strength by 1/2 muscle grade ( at time of eval: LE MMT: B hip flex 4/5, sitting in chair hip abd 3+/5, B leg ext 4-/5 and B knee flex 4/5, R ankle DF 3-/5 and L 4-/5.... pt has decreased ability to heel lift). Goal Time Frame: 4-6 Weeks Goal Progress: Progressing Goal 6:: Be able to walk around large loop in PT dept with SBA without having to take a rest break. Goal Time Frame: 2-4 Weeks Anticipated Interventions Patient/Client Instruction: Educate patient on: Condition, Plan of Care For the Purpose of:: To decrease pain, To increase ROM, To improve nutrient delivery to tissue, To improve muscle performance and motor function, To improve ability to perform ADL's, To increase tolerance to activity/condition/position, To improve performance and independence with ADL's, To decrease level of supervision to perform tasks, To improve ability of physical actions for home/ community/work/leisure, To improve gait and locomotor functions, To improve balance, To improve safety with gait Therapeutic Exercise to Include: Strength training, Endurance training, Balance training, Postural training, Flexibilty training, Gait and locomotor training, Passive ROM, Active ROM, Dynamic Lumbar Stabilization For the Purpose of:: To decrease pain, To increase ROM, To improve nutrient delivery to tissue, To improve muscle performance and motor function, To improve ability to perform ADL's, To increase tolerance to activity/condition/position, To improve performance and independence with ADL's, To decrease level of supervision to perform tasks, To improve ability of physical actions for home/community/work/leisure, To improve gait and locomotor functions, To increase flexibility/ROM, To improve balance, To improve safety with gait Functional Training to Include: Gait training For the Purpose of:: To improve safety with gait Please do not hesitate to contact me at [phone] by phone or if you have questions or concerns regarding this new plan of care! Sincerely, Dalila Ruiz, CHAR
--- NOTE | 2018-12-29 14:34 | HP.PTREVAL ---
Michael Snowden MD, It has been my pleasure to treat JUWAN DAVIES over the last 31 visits for RC syndrome, gait difficulty, and falls. Please see the progress note below for an update on the physical therapy plan of care! Subjective: Pt wants to see her balance improve.... she has a fear of falling and holds onto the walker. She is not doing enough HEP at home. She has been using the walker for at least 2 years. Objective/Function: Gait: walks with a front wheeled walker from the front waiting room to the treatment rooms holding on tight to her walker stopping to wipe the sweat from her hands ( admits to being nervous about walking) and not picking up feet and no where near a normal step length or heel to toe gait pattern. Pt's gait speed is one step at a time and very slow. Tinetti: 14 Plan Plan: Stop Shoulder exercises at this point and HEP for LE exercises for strengthening was given for home as pt is I in them ( instructed pt to do standing kitchen exercises at her walker pushe up against something for safety. ++Will work in the clinic on functional gait ( increase stride, heel to toe gait, and picking up feet with walking) and not holding onto the walker handles as tight. Work on standing balance both static and dynamibc without the use of her walker if able Goals Goal 1:: I HEP Goal Time Frame: 4-6 Weeks Goal Progress: Goal Met Goal 2:: Be able to walk with more upright gait with less weight through her UE's on the walker with more confidence Goal Time Frame: 4-6 Weeks Goal Progress: Progressing Goal 3:: Increase B shoulder strength to 4-/5 ER/IR and flex and abd to 3+/5 Goal Time Frame: 4-6 Weeks Goal Progress: Progressing Goal 4:: Be able to stand indep for 1 min without UE support or LOB. ( inside // bars or wtih safety assistance as needed). and staggered stance. Goal Time Frame: 4-6 Weeks Goal Progress: Goal Met Goal 5:: Increase Tinetti by 4 points to decrease fall risk to 18 Goal Time Frame: 4-6 Weeks Goal Progress: Progressing Goal 6:: Be able to walk around large loop in PT dept with SBA without having to take a rest break. Goal Time Frame: 2-4 Weeks Anticipated Interventions Patient/Client Instruction: Educate patient on: Condition, Plan of Care For the Purpose of:: To decrease pain, To increase ROM, To improve nutrient delivery to tissue, To improve muscle performance and motor function, To improve ability to perform ADL's, To increase tolerance to activity/condition/position, To improve performance and independence with ADL's, To decrease level of supervision to perform tasks, To improve ability of physical actions for home/community/work/leisure, To improve gait and locomotor functions, To improve balance, To improve safety with gait Therapeutic Exercise to Include: Strength training, Endurance training, Balance training, Postural training, Flexibilty training, Gait and locomotor training, Passive ROM, Active ROM, Dynamic Lumbar Stabilization For the Purpose of:: To decrease pain, To increase ROM, To improve nutrient delivery to tissue, To improve muscle performance and motor function, To improve ability to perform ADL's, To increase tolerance to activity/condition/position, To improve performance and independence with ADL's, To decrease level of supervision to perform tasks, To improve ability of physical actions for home/community/work/leisure, To improve gait and locomotor functions, To increase flexibility/ROM, To improve balance, To improve safety with gait Functional Training to Include: Gait training For the Purpose of:: To improve safety with gait Please do not hesitate to contact me at [phone] by phone or if you have questions or concerns regarding this new plan of care! Sincerely, CHAR Boogie
--- NOTE | 2019-01-26 14:03 | HP.PTDCSUM ---
HP - PT D/C Summary It has been my pleasure to treat JUWAN DAVIES under orders from Michael Snowden MD, for the diagnosis of RC syndrome, gait difficulty, and falls for a total of 39 visit(s). Discharge Date: 01/26/19 Please see the following information for a summary of their discharge status. - Subjective Subjective: Pt was asked about Silver Sneakers and she said that she wants to wait for a few weeks and wants to get rid of her cold first. She feels comfortable doing her exercises at home, at least the ones that she does. - Pain R shoulder pain Pain Intensity (Out of 10): 2 L shoulder pain Pain Intensity (Out of 10): 2 L hip pain Pain Intensity (Out of 10): 3 LBP Pain Intensity (Out of 10): Unrated - Overall Improvement % Improvement: 70 - Objective Objective/Function: Gait: pt still has to stop several times on the way back from the waiting room to the treatment area. She still grab super tight to the walker handles. Tinetti 16. LE MMT: hip flex 3-/5, Knee ext B 3/5 - Goals Goal 1:: I HEP Goal Progress: Goal Met Goal 2:: Be able to walk with more upright gait with less weight through her UE's on the walker with more confidence Goal Progress: Progressing Goal 3:: Increase B shoulder strength to 4-/5 ER/IR and flex and abd to 3+/5 Goal Progress: Progressing Goal 4:: Be able to stand indep for 1 min without UE support or LOB. ( inside // bars or wtih safety assistance as needed). and staggered stance. Goal Progress: Goal Met Goal 5:: Increase Tinetti by 4 points to decrease fall risk to 18 Goal Progress: Progressing Goal 6:: Be able to walk around large loop in PT dept with SBA without having to take a rest break. Goal Progress: Goal Met - Plan Plan: DC PT to HEP.... - D/C Information Discharge Comments: DC PT to Silver sneakers and HEP If there are questions or concerns regarding this patient's physical therapy, please feel free to call me at [phone]. Thank you for the referral of this patient. Sincerely, Dalila Ruiz, MPT
== END 2019-01-26 19:00 | disposition home or self-care (01) ==
LOC: PT 13:30
PROVIDERS: Family Provider Family Medicine Geriatric Medicine; PCP Family Medicine Geriatric Medicine; Referring Provider Family Medicine Geriatric Medicine; Visit Provider Family Medicine Geriatric Medicine
DX: M75.102 Unspecified rotator cuff tear or rupture of left shoulder, not specified as traumatic (principal); M75.101 Unspecified rotator cuff tear or rupture of right shoulder, not specified as traumatic; R26.9 Unspecified abnormalities of gait and mobility; R29.6 Repeated falls
CPT/HCPCS: 97110; 97116; 97162; 97530

== ENCOUNTER 2019-03-04 18:14 | Emergency (ER) | payer MEDICARE, SELFPAY ==
[2019-02-01 17:16] VITALS: BMI 35.1
[2019-03-04 18:16] VITALS: BP 213/103; PULSE 48; RESP 17; TEMP 36.7; O2SAT 97; BMI 35.5
--- NOTE | 2019-03-04 18:40 | CT_ITS ---
STUDY: CT ABDOMEN AND PELVIS WITHOUT CONTRAST REASON FOR EXAM: Female, 73 years old. Pain, elevated blood pressure. RADIATION DOSAGE (If Supplied By Facility): CTDIvol = ( 15.45 ) mGy, DLP = ( 845.34 ) mGycm TECHNIQUE: Transaxial images were obtained from the dome of the diaphragm to the symphysis pubis without oral contrast, and without intravenous contrast. Sagittal and coronal images were reconstructed. Individualized dose optimization techniques were used for this CT. COMPARISON: 07/15/2016. FINDINGS: Lung bases are clear. Mild cardiac enlargement. Small, fat-containing right diaphragmatic hernia. The liver is unremarkable. The gallbladder is unremarkable. The spleen and pancreas are unremarkable. The adrenal glands are normal. The kidneys are unremarkable. No stones or hydronephrosis. The aorta is normal in caliber. There is no free fluid, free air, or organized collection. No demonstrated bowel obstruction. Urinary bladder is unremarkable. Small left pelvic spigelian hernia contains a short segment of bowel. This is new compared to the prior study. There is a small left inguinal hernia containing edematous mesentery, concerning for incarceration. Although the inguinal hernia was previously documented, the edematous mesentery is new compared to the prior study. Transitional lumbosacral vertebral body. Vertebral numbering is in accordance with the prior study. Bilateral L5 spondylolysis with 1.5 cm anterolisthesis, consistent with grade 2 spondylolisthesis. No significant change. Chronic L1 compression fracture. Chronic loss of height of the T12 vertebra. Compression fractures have progressed compared to the prior study. CT/Abdomen/Pelvis without Cont IMPRESSION: 1. Incarcerated left inguinal hernia containing mesentery. 2. Left spigelian hernia containing bowel, no evidence of obstruction. 3. Chronic T12 and L1 compression fractures, with progression from prior. Transitional lumbosacral vertebra. 4. Grade 2 spondylolisthesis at L4-5. 5. Small fat-containing right diaphragmatic hernia. Electronically Signed: Ramila Gonzalez MD at 19:55 EST Tel , Service support ,
--- NOTE | 2019-03-04 18:45 | ED.DCSUM_ITS ---
- ER Visit Summary Date of Service: 03/04/19 Chief Complaint: Abdominal pain, numbness throughout her body History of Present Illness: The patient is a 73 F who presents with abdominal pain. She also has numbness throughout her body for the past couple of years. She states that this is due to sarcoidosis. She saw her doctor today for her symptoms and he referred her here because of her abdominal pain. Is been ongoing for 2 days. Is diffuse and cramping. No nausea, vomiting, diarrhea or constipation. No abdominal surgeries. She denies any urinary symptoms. She also states that her blood pressure has been high at home. Physical Examination: Vital signs reviewed. HEENT exam unremarkable. Heart is regular rate and rhythm without murmurs. Lungs are clear to auscultation. Abdomen is soft and nontender. She does have some tenderness in the right buttock area. Extremities reveal no edema. Skin exam normal. Neurologic exam normal. Her sensation appears normal despite her saying that she is numb everywhere. Test Results: Laboratory studies including CBC and CMP are normal. CAT scan of the abdomen pelvis reveals an incarcerated left inguinal hernia, left spigelian hernia. She also has chronic T12 and L1 compression fractures Emergency Department Course and Treatment: The patient had a bowel movement and feels better here. I talked with her about the hernias. She does not know that she has a history of these. However, her obese body habitus prevents a good examination of these areas. She denies any pain in her inguinal area. She has no pain right now. I do not feel she needs an urgent surgical consult for these. She has seen Dr. Pena in the past so I will refer her back to him for any surgical needs. I feel she can be discharged home. She has a follow-up with Dr. Snowden next week Treatment Plan: [] Disposition: Discharge Impression: Abdominal pain, body numbness, abdominal hernias This note was generated with [employer] dictation software. It may contain incorrect words, spelling, and punctuation that were not noted in review of the chart prior to signing ED Disposition - Plan for ED Patient: Referrals: Michael Snowden Chi, MD [Primary Care Provider] -
[2019-03-04 19:09] LABS: Absolute Lymphocyte Count 1.08 X10^3/uL (0.83-4.51); Absolute Neutrophil Count 4.1 X10^3/uL (2.0-7.7); Basophil# 0.03 X10^3/uL; Basophil% 0.5 % (0-1); Eosinophil# 0.09 X10^3/uL; Eosinophils% 1.5 % (0-5); Hematocrit 39.7 % (37-47); Hemoglobin 12.5 g/dL (12.0-15.0); Lymphocyte # 1.08 X10^3/ul (4.0); Lymphocyte % 18.6 % (19-41); Mean Corp Hgb Conc 31.5 g/dL (32-36); Mean Corpuscular Hgb 29.2 pg (27.0-32.0); Mean Corpuscular Volume 92.8 fL (81-99); Mean Platelet Vol. 9.8 fl (6.2-12.0); Monocyte% 8.6 % (0-10); NRBC Flagged by Analyzer 0 % (0-5); Neutrophil # 4.09 X10^3/uL (2.7-7.7); Neutrophil % 70.5 % (47-70); Platelet Count 223 K/mm3 (150-450); RBC Distribution Width CV 14.6 % (11.6-14.6); RBC Distribution Width SD 49.4 fl (35.1-43.9); Red Blood Count 4.28 M/mm3 (4.2-5.4); White Blood Count 5.8 K/mm3 (4.4-11.0)
[2019-03-04 19:18] LABS: ALB/GLOB Ratio 0.9 RATIO (0.9-2.4); AST(SGOT) 24 U/L (15-37); Alanine Aminotransfer ALT/SGPT 24 U/L (13-56); Albumin, Serum 3.6 g/dL (3.2-5.0); Alkaline Phosphatase 63 U/L (45-117); Anion Gap 3 (5-15); BUN 14 mg/dL (7-18); BUN/Creat Ratio 17.9 RATIO (10-20); Calcium,Total 8.9 mg/dL (8.5-10.1); Chloride 106 mmol/L (98-107); Creatinine, Serum 0.78 mg/dL (0.55-1.02); EST Glomerular Filtration Rate 77 mL/min (>60); Est Glom Filt Rate - Afr Amer 93 mL/min (>60); Estimated Creatinine Clearance 63.14 ml/min; Glucose 94 mg/dL (74-106); Potassium 3.8 mmol/L (3.5-5.1); Protein, Total 7.6 g/dL (6.4-8.2); Sodium Level 140 mmol/L (136-145)
[2019-03-04 20:34] VITALS: RESP 16
--- NOTE | 2019-03-04 20:35 | ED.DEP ---
ED Disposition - Plan for ED Patient: Disposition: Home or Assisted Living Instructions: ABDOMINAL PAIN, Unknown Cause, (Female) Referrals: Michael Snowden Chi, MD [Primary Care Provider] -
[2019-03-04 20:47] VITALS: BP 222/83; PULSE 56; RESP 16; O2SAT 99
--- NOTE | 2019-03-04 20:48 | ED.RN ---
DR. GEE AWARE OF PT'S BP AND STATES PT IS OKAY TO D/C IF SHE TAKES BP MEDS AT HOME. REVIEWED D/C INSTRUCTIONS, FOLLOW UP CARE, AND S/S THAT WOULD WARRANT A RETURN TO THE ED WITH PT. PT VERBALIZED AN UNDERSTANDING AND DENIES FURTHER QUESTIONS FOR THIS RN. PT SKIN P/W/D, RESP EVEN AND UNLABORED, PT A&O X 3, NO DISTRESS NOTED. PT ASSISTED OUT OF ED IN WHEELCHAIR.
== END 2019-03-04 20:49 | disposition home or self-care (01) ==
PROVIDERS: Emergency Provider Emergency Medicine; Family Provider Family Medicine Geriatric Medicine; PCP Family Medicine Geriatric Medicine
DX: R10.9 Unspecified abdominal pain (principal); R20.0 Anesthesia of skin; K40.30 Unilateral inguinal hernia, with obstruction, without gangrene, not specified as recurrent; K43.9 Ventral hernia without obstruction or gangrene; D86.9 Sarcoidosis, unspecified; E66.9 Obesity, unspecified; Z79.899 Other long term (current) drug therapy
CPT/HCPCS: 74176; 80053; 85025; 99283; A4216

== ENCOUNTER → 2019-03-18 14:51 | Outpatient (CLI) | payer MEDICARE, SELFPAY ==
[2019-03-04 18:16] VITALS: BMI 35.5
[2019-03-18 16:56] LABS: Absolute Lymphocyte Count 1.43 X10^3/uL (0.83-4.51); Absolute Neutrophil Count 3.4 X10^3/uL (2.0-7.7); Basophil# 0.04 X10^3/uL; Basophil% 0.7 % (0-1); Eosinophil# 0.08 X10^3/uL; Eosinophils% 1.4 % (0-5); Hematocrit 40.4 % (37-47); Hemoglobin 12.6 g/dL (12.0-15.0); Lymphocyte # 1.43 X10^3/ul (4.0); Lymphocyte % 25.7 % (19-41); Mean Corp Hgb Conc 31.2 g/dL (32-36); Mean Corpuscular Hgb 28.7 pg (27.0-32.0); Mean Platelet Vol. 10.5 fl (6.2-12.0); Monocyte# 0.58 X10^3/uL; Monocyte% 10.4 % (0-10); NRBC Flagged by Analyzer 0 % (0-5); Neutrophil # 3.42 X10^3/uL (2.7-7.7); Neutrophil % 61.4 % (47-70); Platelet Count 246 K/mm3 (150-450); RBC Distribution Width CV 15.4 % (11.6-14.6); RBC Distribution Width SD 51.9 fl (35.1-43.9); Red Blood Count 4.39 M/mm3 (4.2-5.4); White Blood Count 5.6 K/mm3 (4.4-11.0)
[2019-03-18 17:05] LABS: Vitamin D,25 Hydroxy 39.1 ng/mL (29.95-100.01)
[2019-03-18 17:12] LABS: ALB/GLOB Ratio 0.9 RATIO (0.9-2.4); AST(SGOT) 23 U/L (15-37); Alanine Aminotransfer ALT/SGPT 28 U/L (13-56); Albumin, Serum 3.7 g/dL (3.2-5.0); Alkaline Phosphatase 69 U/L (45-117); Anion Gap 6 (5-15); BUN 15 mg/dL (7-18); BUN/Creat Ratio 17.3 RATIO (10-20); Calcium,Total 8.9 mg/dL (8.5-10.1); Chloride 106 mmol/L (98-107); Cholesterol 185 mg/dL (200); Creatinine, Serum 0.87 mg/dL (0.55-1.02); EST Glomerular Filtration Rate 68 mL/min (>60); Est Glom Filt Rate - Afr Amer 82 mL/min (>60); Glucose 95 mg/dL (74-106); High Density Lipoprotein 63 mg/dL; Potassium 3.7 mmol/L (3.5-5.1); Protein, Total 7.7 g/dL (6.4-8.2); Sodium Level 140 mmol/L (136-145); Thyroid Stim Hormone (TSH) 1.28 uIU/mL (0.358-3.74); Triglycerides 102 mg/dL; Very Low Density Lipoprotein 20 mg/dL (5-40)
== END ==
PROVIDERS: Family Provider Family Medicine Geriatric Medicine; PCP Family Medicine Geriatric Medicine; Visit Provider Family Medicine Geriatric Medicine
DX: E55.9 Vitamin D deficiency, unspecified (principal); E78.5 Hyperlipidemia, unspecified; I10 Essential (primary) hypertension
CPT/HCPCS: 36415; 80053; 80061; 82306; 84443; 85025

== ENCOUNTER 2019-04-03 13:55 | Emergency (ER) | payer MEDICARE, SELFPAY ==
[2019-04-03 13:56] VITALS: BP 202/96; PULSE 63; RESP 18; TEMP 36.3; O2SAT 95; BMI 34.3
--- NOTE | 2019-04-03 14:21 | CT_ITS ---
STUDY: CT ABDOMEN AND PELVIS WITHOUT CONTRAST REASON FOR EXAM: Female, 73 years old. HEMATURIA AND LEFT GROIN PAIN RADIATION DOSAGE (If Supplied By Facility): CTDIvol = ( 13.21 ) mGy, DLP = ( 583.88 ) mGycm TECHNIQUE: Transaxial images were obtained from the dome of the diaphragm to the symphysis pubis without oral contrast, and without intravenous contrast. Sagittal and coronal images were reconstructed. Individualized dose optimization techniques were used for this CT. COMPARISON: None. FINDINGS: There are chronic interstitial fibrotic changes of the lung bases. There are aortic valve and coronary artery calcifications. Normal liver. Normal gallbladder and extrahepatic biliary system. Normal spleen. Normal pancreas. Normal bilateral adrenal glands. Normal right kidney. Normal left kidney. Normal visualized stomach. Normal small intestine. Normal colon. There is non-visualization of the appendix. There is diffuse atherosclerotic calcification of the abdominal aorta, without a demonstrated aneurysm. Normal inferior vena cava. Normal retroperitoneum. Normal urinary bladder. There is atrophy of the uterus. There is a small umbilical hernia containing fat. There is a small left inguinal hernia is mild induration of the hernia sac (coronal image 33). No contain small bowel loops. There is grade 2 spondylolisthesis of the lumbosacral junction. Compression deformity of L1 is likely chronic. CT/Abdomen/Pelvis without Cont IMPRESSION: 1. No hydronephrosis or urinary tract calcifications. 2. Left inguinal hernia containing fat (no bowel loops) with mild degree of fat infiltration suggesting inflammation/ischemia. Electronically Signed: All Woodruff MD (Brooks) at 15:16 EST , Service support ,
--- NOTE | 2019-04-03 14:22 | ED.DCSUM_ITS ---
History of Present Illness Chief Complaint: Complaint Detail of Chief Complaint: Hematuria Informant: Patient Onset: Days Context: Gradual Onset Narrative: Patient presents for evaluation of hematuria. She states a few nights ago she had vomiting and diarrhea. The following morning she had noted some blood in her urine on first void, but then urine cleared throughout the day. She had the same thing the following day. Today she has noticed blood every time she urinates. She denies dysuria. She does have some mild pain in the left groin. - Past Medical History (1) Sarcoidosis Status: Chronic (2) Essential (primary) hypertension Status: Chronic (3) Nonrheumatic aortic (valve) stenosis Status: Chronic (4) GI bleed Status: Acute (5) Supraventricular tachycardia Status: Chronic (6) Subsequent non-ST elevation (NSTEMI) myocardial infarction Status: Resolved Comment: 02/16/15 Past Medical History - Allergies and Home Meds Allergies/Adverse Reactions: Allergies hydrochlorothiazide Allergy (Intermediate, Verified 04/03/19 13:56) low sodium atorvastatin [From Lipitor] Allergy (Verified 04/03/19 13:56) Unknown lisinopril Allergy (Verified 04/03/19 13:56) Angioedema amlodipine [From Norvasc] Adverse Reaction (Severe, Verified 04/03/19 13:56) Freezes up limbs nifedipine [From Nifedical XL] Adverse Reaction (Severe, Verified 04/03/19 13:56) Freezes up limbs alendronate sodium [From Fosamax] Adverse Reaction (Intermediate, Verified 04/03/19 13:56) GI upset codeine Adverse Reaction (Verified 04/03/19 13:56) Unknown ibuprofen Adverse Reaction (Verified 04/03/19 13:56) Other HCTA Adverse Reaction (Intermediate, Uncoded 04/03/19 13:56) Low sodium Primary Care Physician: Michael Snowden Chi, MD [Primary Care Provider] - Doctors: Dr. Liang Surgical History: total knee arthroplasty, tonsillectomy, - - Cataract surgery, bilateral foot surgery to toes and bunionectomy, tonsillectomy, bilateral total knee replacement. Smoking Status: Never smoker - Family History Paternal Family History: Family History (Last Reviewed 02/01/19 @ 17:16 by Donna Witt) Father Hypertension Aortic aneurysm Mother Hypertension Sister Hypertension Diabetes Family History: Reports: - - Father with a history of AAA, hypertension. Maternal Family History: Family History (Last Reviewed 02/01/19 @ 17:16 by Donna Witt) Father Hypertension Aortic aneurysm Mother Hypertension Sister Hypertension Diabetes Family History: Reports: Heart Disease, Hypertension Sibling Family History: Family History (Last Reviewed 02/01/19 @ 17:16 by Donna Witt) Father Hypertension Aortic aneurysm Mother Hypertension Sister Hypertension Diabetes Family History: Reports: Diabetes, Hypertension Review of Systems General: Denies: Chills, Fever Eyes: Denies: Visual changes - bilaterally ENT: Denies: Bilateral ear pain Cardiovascular: Denies: Chest pain Respiratory: Denies: Dyspnea, Cough Gastrointestinal: Reports: Abdominal pain, Nausea, Vomiting, Diarrhea Genitourinary: Reports: Hematuria. Denies: Dysuria Musculoskeletal: Denies: Extremity Pain Skin: Denies: Rash Neurological: Denies: Headache Hematologic: Denies: Easy bruising, Easy bleeding Physical Exam Vital Signs/Narrative: Vital Signs Temp Pulse Resp BP Pulse Ox 04/03/19 13:56 97.3 F L 63 18 202/96 H 95 Inital Vital Signs reviewed: Yes General: Well nourished, Well developed Head: Normocephalic ENT: Moist mucous membranes Neck: Supple Cardiovascular: Regular rate, Regular rhythm Respiratory: No distress, CTA bilaterally Abdomen: Soft, Tender - Mild periumbilical tenderness.. Negative for: Guarding, Rebound tenderness Extremities: Nontender Skin: Normal color Neurological: Alert, Oriented x3 Psychological: Normal affect Diagnostic/Tx/Re-eval Impressions Abdomen/Pelvis CT 04/03/19 14:21 IMPRESSION: 1. No hydronephrosis or urinary tract calcifications. 2. Left inguinal hernia containing fat (no bowel loops) with mild degree of fat infiltration suggesting inflammation/ischemia. Electronically Signed: All Woodruff MD (Brooks) at 15:16 EST , Service support , 04/03/19 14:21 Abdomen/Pelvis without Cont [CT] Stat Laboratory Results 04/03/19 04/03/19 04/03/19 14:30 14:30 14:45 WBC 8.0 RBC 4.08 L Hgb 11.8 L Hct 37.5 MCV 91.9 MCH 28.9 MCHC 31.5 L RDW Std Deviation 53.2 H RDW Coeff of Ok 15.8 H Plt Count 210 MPV 9.6 Immature Gran % (Auto) 0.300 Neut % (Auto) 78.5 H Lymph % (Auto) 13.7 L [place] % (Auto) 6.2 Eos % (Auto) 1.0 Baso % (Auto) 0.3 Absolute Neuts (auto) 6.3 Absolute Lymphs (auto) 1.09 Nucleated RBC % 0 Sodium 141 Potassium 4.0 Chloride 107 Carbon Dioxide 30.0 Anion Gap 4 L BUN 13 Creatinine 0.81 Estim Creat Clear Calc 75.30 Est GFR (MDRD) Af Amer 89 Est GFR (MDRD) Non-Af 73 BUN/Creatinine Ratio 16.0 Glucose 95 Calcium 8.6 Urine Color Yellow Urine Clarity Sl. Cloudy Urine pH 7.0 Ur Specific [place] 1.005 Urine Protein 30 H Urine Glucose (UA) Normal Urine Ketones Negative Urine Occult Blood 250 H Urine Nitrite Negative Urine Bilirubin Negative Urine Urobilinogen Normal Ur Leukocyte Esterase 500 H Urine RBC 0 SEEN Urine WBC 25-50 SEEN Ur Squamous Epith Cells 10-25 SEEN Urine Bacteria 0 SEEN Urine Mucus 0 SEEN - Medical Decision Making Patient's lab results are discussed with her. She will be given a 3-day course of Bactrim, first dose given here. She will have her blood pressure rechecked prior to discharge. She has an appointment with her customer account specialist in 3 days about her blood pressure. ED Disposition - Plan for ED Patient: Disposition: Home or Assisted Living Diagnosis: Cystitis Instructions: Bladder Infection, Female (Adult) Prescriptions: Smz/Tmp Ds [Bactrim Ds] 1 tab PO BID #6 tab [facility]: [facility] [facility] Referrals: Michael Snowden Chi, MD [Primary Care Provider] - 1 Week
[2019-04-03 14:39] LABS: Absolute Lymphocyte Count 1.09 X10^3/uL (0.83-4.51); Absolute Neutrophil Count 6.3 X10^3/uL (2.0-7.7); Basophil# 0.02 X10^3/uL; Basophil% 0.3 % (0-1); Eosinophil# 0.08 X10^3/uL; Hematocrit 37.5 % (37-47); Hemoglobin 11.8 g/dL (12.0-15.0); Lymphocyte # 1.09 X10^3/ul (4.0); Lymphocyte % 13.7 % (19-41); Mean Corp Hgb Conc 31.5 g/dL (32-36); Mean Corpuscular Hgb 28.9 pg (27.0-32.0); Mean Corpuscular Volume 91.9 fL (81-99); Mean Platelet Vol. 9.6 fl (6.2-12.0); Monocyte# 0.49 X10^3/uL; Monocyte% 6.2 % (0-10); NRBC Flagged by Analyzer 0 % (0-5); Neutrophil # 6.25 X10^3/uL (2.7-7.7); Neutrophil % 78.5 % (47-70); Platelet Count 210 K/mm3 (150-450); RBC Distribution Width CV 15.8 % (11.6-14.6); RBC Distribution Width SD 53.2 fl (35.1-43.9); Red Blood Count 4.08 M/mm3 (4.2-5.4)
[2019-04-03] MEDS: 0.9% Normal Saline 1,000 ML 15 ML IV (14:51)
[2019-04-03 14:53] LABS: Bacteria 0 SEEN /hpf (None Seen); Mucous, Urine 0 SEEN /hpf (<or=2+); Red Blood Cells-Urine 0 SEEN /hpf (0-5)
[2019-04-03 14:57] LABS: Color, Urine Yellow (Yellow); Glucose, Dipstick Normal (Normal); Ketone-Dipstick Negative (Negative); Leukocyte Esterase-Dipstick 500 /ul (Negative); Nitrite-Dipstick Negative (Negative); Occult Blood-Urine 250 /ul (Negative); Protein-Dipstick 30 mg/dl (Negative); Specific Gravity, Urine 1.005 (1.002-1.030); Urine Bilirubin Dipstick Negative (Negative); Urine Clarity Sl. Cloudy (Clear); Urine Urobilinogen Normal (Normal)
[2019-04-03 15:03] LABS: White Blood Cells 25-50 SEEN /hpf (0-5)
[2019-04-03 15:04] LABS: Anion Gap 4 (5-15); BUN 13 mg/dL (7-18); Calcium,Total 8.6 mg/dL (8.5-10.1); Chloride 107 mmol/L (98-107); Creatinine, Serum 0.81 mg/dL (0.55-1.02); EST Glomerular Filtration Rate 73 mL/min (>60); Est Glom Filt Rate - Afr Amer 89 mL/min (>60); Glucose 95 mg/dL (74-106); Sodium Level 141 mmol/L (136-145)
[2019-04-03 15:04] LABS: Squamous Epithelial Cells - UA 10-25 SEEN /hpf (5-10)
[2019-04-03] MEDS: Smz/Tmp Ds Tablet 1 TABLET PO (17:31)
[2019-04-03 17:43] VITALS: BP 221/108; PULSE 67; RESP 16; O2SAT 95
[2019-04-03] MEDS: cloNIDine HCl 0.1 MG Tablet PO (17:48)
== END 2019-04-03 17:55 | disposition home or self-care (01) ==
PROVIDERS: Emergency Provider Emergency Medicine; Family Provider Family Medicine Geriatric Medicine; PCP Family Medicine Geriatric Medicine
DX: N30.91 Cystitis, unspecified with hematuria (principal); I47.1 Supraventricular tachycardia; R19.7 Diarrhea, unspecified; R11.10 Vomiting, unspecified; D86.9 Sarcoidosis, unspecified; I10 Essential (primary) hypertension; I35.0 Nonrheumatic aortic (valve) stenosis; I25.2 Old myocardial infarction; Z88.8 Allergy status to other drugs, medicaments and biological substances; Z88.6 Allergy status to analgesic agent; Z88.5 Allergy status to narcotic agent; Z96.653 Presence of artificial knee joint, bilateral
CPT/HCPCS: 74176; 80048; 81001; 85025; 87086; 87088; 99284; J7030; A4216

== ENCOUNTER 2019-04-06 19:49 | Inpatient (IN) | payer MEDICARE, SELFPAY ==
[2019-04-06] VITALS (9 sets, daily range): BP systolic 111–142; BP diastolic 54–88; PULSE 56–67; RESP 16–20; TEMP 36.4–36.5; O2SAT 94–96; BMI 34.9; BMI 35.2; BMI 34.8
--- NOTE | 2019-04-06 19:54 | CT_ITS ---
STUDY: CT BRAIN WITHOUT CONTRAST REASON FOR EXAM: Female, 73 years old. UNRESPONSIVE, PT TAKING NEW HEART MEDICATION RADIATION DOSAGE (If Supplied By Facility): CTDIvol = ( 44.99 ) mGy, DLP = ( 762.36 ) mGycm TECHNIQUE: Transaxial CT imaging of the brain was performed without administration of intravenous contrast material. Individualized dose optimization techniques were used for this CT. COMPARISON: No relevant priors. FINDINGS: Normal soft tissue structures. Normal calvarium. Calcification of the cavernous carotids. Vertebrobasilar dolichoectasia consistent with hypertension. Moderate atrophy and periventricular white matter ischemic changes.. Normal basal ganglia and thalami. Normal brainstem. Normal cerebellum. 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 There is no intracranial hemorrhage. There are no findings of an acute ischemic infarction. Postop changes of the left orbit. Normal visualized paranasal sinuses. No significant change since prior study CT/Brain/Head without Contrast IMPRESSION: Moderate atrophy and periventricular white matter ischemic changes with old infarct in left temporal lobe. No evidence for acute bleed. If concern for acute infarct MRI recommended Electronically Signed: Ridge Washington MD at 20:42 EST , Service support ,
--- NOTE | 2019-04-06 19:54 | EKG12_ITS ---
Test Reason : UNRESPONSIVE Blood Pressure : / mmHG Vent. Rate : 063 BPM Atrial Rate : 063 BPM P-R Int : 218 ms QRS Dur : 084 ms QT Int : 440 ms P-R-T Axes : 041 -11 038 degrees QTc Int : 450 ms Sinus rhythm with 1st degree A-V block with Premature atrial complexes Inferior infarct , age undetermined Cannot rule out Anterior infarct , age undetermined Abnormal ECG Confirmed by CALDERON SR ([id number]), editor trade journal SHONDA BROCK ([id number]) on 04/08/2019 10:44:53 AM Referred By: HALIMA Confirmed By:CALDERON SR
--- NOTE | 2019-04-06 19:56 | ED.VIS.GEN ---
History of Present Illness Chief Complaint: Unresponsive Informant: Family, Health Information Director Onset: Today Context: Sudden Onset Timing: Continuous Quality: Unresponsiveness Location: Patient's residence Current Severity: Mild Maximum Severity: Severe Worsened by: Unknown Relieved by: Nothing Associated Symptoms: Patient has no recall Narrative: Patient is elderly woman recently prescribed Bactrim for UTI. She was prescribed Cardura for uncertain reasons. She apparently went to the restroom. She became weak. She sat down and sister states she went out. She slumped. Call went to paramedics at 1917. They arrived at 192. Patient moans to noxious stimuli. She remained unresponsive until arrival to the hospital at 194. She is staring. She is slow to response. She has no recall of what occurred. There was no incontinence of urine or stool. Paramedics did not assess her if there was any seizure activity. Has been documented. Prior similar symptoms: No Recent Illness/Hospitalization: No - Past Medical History (1) GI bleed Status: Acute (2) Essential (primary) hypertension Status: Chronic (3) Nonrheumatic aortic (valve) stenosis Status: Chronic (4) Sarcoidosis Status: Chronic (5) Supraventricular tachycardia Status: Chronic (6) Subsequent non-ST elevation (NSTEMI) myocardial infarction Status: Resolved Comment: 02/16/15 Past Medical History - Allergies and Home Meds Allergies/Adverse Reactions: Allergies hydrochlorothiazide Allergy (Intermediate, Verified 04/06/19 12:00) low sodium atorvastatin [From Lipitor] Allergy (Verified 04/06/19 12:00) Unknown lisinopril Allergy (Verified 04/06/19 12:00) Angioedema amlodipine [From Norvasc] Adverse Reaction (Severe, Verified 04/06/19 12:00) Freezes up limbs nifedipine [From Nifedical XL] Adverse Reaction (Severe, Verified 04/06/19 12:00) Freezes up limbs alendronate sodium [From Fosamax] Adverse Reaction (Intermediate, Verified 04/06/19 12:00) GI upset codeine Adverse Reaction (Verified 04/06/19 12:00) Unknown ibuprofen Adverse Reaction (Verified 04/06/19 12:00) Other HCTA Adverse Reaction (Intermediate, Uncoded 04/06/19 12:00) Low sodium Primary Care Physician: Michael Snowden Chi, MD [Primary Care Provider] - Prior records reviewed: Yes Surgical History: total knee arthroplasty, tonsillectomy, - - Cataract surgery, bilateral foot surgery to toes and bunionectomy, tonsillectomy, bilateral total knee replacement. Lives: Alone Smoking Status: Never smoker Alcohol: None Drugs: None - Family History Paternal Family History: Family History (Last Reviewed 04/06/19 @ 16:03 by Bret Daniels MD) Father Hypertension Aortic aneurysm Mother Hypertension Sister Hypertension Diabetes Family History: Reports: - - Father with a history of AAA, hypertension. Maternal Family History: Family History (Last Reviewed 04/06/19 @ 16:03 by Bret Daniels MD) Father Hypertension Aortic aneurysm Mother Hypertension Sister Hypertension Diabetes Family History: Reports: Heart Disease, Hypertension Sibling Family History: Family History (Last Reviewed 04/06/19 @ 16:03 by Bret Daniels MD) Father Hypertension Aortic aneurysm Mother Hypertension Sister Hypertension Diabetes Family History: Reports: Diabetes, Hypertension Review of Systems ROS: Unable to Obtain - Please read HPI Physical Exam Inital Vital Signs reviewed: Yes General: Well nourished, Well developed, No Acute Distress Head: Normocephalic, Atraumatic. Negative for: Trauma, Tenderness Eyes: Perrl, EOMI. Negative for: Pale conjunctiva, Scleral icterus ENT: No rhinorrhea, TM's clear Neck: Supple, Nontender, No lymphadenopathy, No JVD Cardiovascular: Regular rate, Regular rhythm, No murmurs, Normal S1, Normal S2 Respiratory: No distress, CTA bilaterally, Chest nontender Abdomen: Soft, Nontender, Nondistended, Normal bowel sounds, No masses. Negative for: Hepatomegaly, Splenomegaly, Pulsatile mass Rectal: Deferred Back: Negative for: Nontender Extremities: Nontender, No edema Skin: Normal color, No rash, No Trauma. Negative for: Cyanosis, Diaphoresis, Jaundice Neurological: Cranial nerves II-XII grossly intact, Normal Strength, Normal Sensation, Normal DTR, Confused, Disoriented, - - Patient is not alert. She is not oriented.. Negative for: Alert, Oriented x3, Normal Gait Psychological: Normal affect Diagnostic/Tx/Re-eval Impressions Brain CT 04/06/19 19:54 IMPRESSION: Moderate atrophy and periventricular white matter ischemic changes with old infarct in left temporal lobe. No evidence for acute bleed. If concern for acute infarct MRI recommended Electronically Signed: Ridge Washington MD at 20:42 EST , Service support , 04/06/19 19:54 Brain/Head without Contrast [CT] Stat Laboratory Results 04/06/19 04/06/19 20:00 20:00 WBC 5.5 RBC 4.04 L Hgb 11.7 L Hct 37.7 MCV 93.3 MCH 29.0 MCHC 31.0 L RDW Std Deviation 54.2 H RDW Coeff of Ok 15.9 H Plt Count 214 MPV 10.0 Immature Gran % (Auto) 0.400 Neut % (Auto) 68.0 Lymph % (Auto) 22.9 [place] % (Auto) 7.0 Eos % (Auto) 1.1 Baso % (Auto) 0.6 Absolute Neuts (auto) 3.7 Absolute Lymphs (auto) 1.25 Nucleated RBC % 0 Sodium 138 Potassium 3.8 Chloride 106 Carbon Dioxide 27.0 Anion Gap 5 BUN 15 Creatinine 1.42 H Estim Creat Clear Calc 25.34 Est GFR (MDRD) Af Amer 47 L Est GFR (MDRD) Non-Af 39 L BUN/Creatinine Ratio 10.6 Glucose 159 H Calcium 8.7 Total Bilirubin 0.20 AST 16 ALT 21 Alkaline Phosphatase 60 Total Protein 7.1 Albumin 3.3 Globulin 3.8 Albumin/Globulin Ratio 0.9 She has acute kidney injury after reviewing prior labs. UA is pending. UA is unremarkable. - EKG Initial EKG Interpretation: Sinus Rhythm - Sinus rhythm with ventricular rate of 63. There is evidence of first-degree AV block. There is premature complexes noted. There is motion artifact. UT interval is 218 ms. QRS duration 84 ms. QT duration 440 ms. [place] is normal. - Medical Decision Making Prolonged period of unresponsiveness doubt vasovagal. However since patient was hypotensive and bradycardic this may represent a vasovagal/cardiogenic event. She was placed on monitor. Will obtain CT of the head to rule out for intracranial pathology. Baseline blood work was obtained. Since she was recently diagnosed with a urinary tract infection urine was obtained. ED Disposition - Plan for ED Patient: Disposition: Acute Care [facility] Diagnosis: Syncope and collapse, Altered mental status, Acute kidney injury Referrals: Michael Snowden Chi, MD [Primary Care Provider] -
[2019-04-06 20:05] LABS: Absolute Lymphocyte Count 1.25 X10^3/uL (0.83-4.51); Absolute Neutrophil Count 3.7 X10^3/uL (2.0-7.7); Basophil# 0.03 X10^3/uL; Basophil% 0.6 % (0-1); Eosinophil# 0.06 X10^3/uL; Eosinophils% 1.1 % (0-5); Hematocrit 37.7 % (37-47); Hemoglobin 11.7 g/dL (12.0-15.0); Lymphocyte # 1.25 X10^3/ul (4.0); Lymphocyte % 22.9 % (19-41); Mean Corpuscular Volume 93.3 fL (81-99); Monocyte# 0.38 X10^3/uL; NRBC Flagged by Analyzer 0 % (0-5); Neutrophil # 3.71 X10^3/uL (2.7-7.7); Platelet Count 214 K/mm3 (150-450); RBC Distribution Width CV 15.9 % (11.6-14.6); RBC Distribution Width SD 54.2 fl (35.1-43.9); Red Blood Count 4.04 M/mm3 (4.2-5.4); White Blood Count 5.5 K/mm3 (4.4-11.0)
[2019-04-06 20:25] LABS: ALB/GLOB Ratio 0.9 RATIO (0.9-2.4); AST(SGOT) 16 U/L (15-37); Alanine Aminotransfer ALT/SGPT 21 U/L (13-56); Albumin, Serum 3.3 g/dL (3.2-5.0); Alkaline Phosphatase 60 U/L (45-117); Anion Gap 5 (5-15); BUN 15 mg/dL (7-18); BUN/Creat Ratio 10.6 RATIO (10-20); Calcium,Total 8.7 mg/dL (8.5-10.1); Chloride 106 mmol/L (98-107); Creatinine, Serum 1.42 mg/dL (0.55-1.02); EST Glomerular Filtration Rate 39 mL/min (>60); Est Glom Filt Rate - Afr Amer 47 mL/min (>60); Estimated Creatinine Clearance 25.34 ml/min; Globulin 3.8 g/dL (2.2-4.2); Glucose 159 mg/dL (74-106); Potassium 3.8 mmol/L (3.5-5.1); Protein, Total 7.1 g/dL (6.4-8.2); Sodium Level 138 mmol/L (136-145)
[2019-04-06 20:48] LABS: Bacteria 0 SEEN /hpf (None Seen); Red Blood Cells-Urine 0 SEEN /hpf (0-5); White Blood Cells 0 SEEN /hpf (0-5)
[2019-04-06 20:50] LABS: Color, Urine Yellow (Yellow); Glucose, Dipstick Normal (Normal); Ketone-Dipstick 5 mg/dl (Negative); Leukocyte Esterase-Dipstick Negative /ul (Negative); Nitrite-Dipstick Negative (Negative); Occult Blood-Urine Negative /ul (Negative); Protein-Dipstick 30 mg/dl (Negative); Urine Bilirubin Dipstick Negative (Negative); Urine Clarity Clear (Clear); Urine Urobilinogen Normal (Normal)
[2019-04-06 21:29] LABS: Mucous, Urine RARE /hpf (<or=2+); Squamous Epithelial Cells - UA 0-5 SEEN /hpf (5-10)
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
[2019-04-06] MEDS: 0.9% Normal Saline 1,000 ML 125 ML IV (22:52)
[2019-04-06] MEDS: 0.9% Saline Lock 10 ML Syringe IV (22:53)
[2019-04-06] MEDS: Heparin Injection (Vial) 5,000 UNIT/ML VIAL 5000 UNIT SC (23:30)
[2019-04-06 23:31] LABS: Bedside Glucose 122 mg/dL (70-110)
[2019-04-07] VITALS (15 sets, daily range): BP systolic 104–162; BP diastolic 59–90; PULSE 58–89; RESP 16–18; TEMP 36.4–36.7; O2SAT 93–96
[2019-04-07] MEDS: Acetaminophen 325 MG Tablet 650 MG PO ×3 (00:30→21:54)
[2019-04-07 04:32] LABS: Absolute Lymphocyte Count 1.31 X10^3/uL (0.83-4.51); Absolute Neutrophil Count 3.7 X10^3/uL (2.0-7.7); Basophil# 0.03 X10^3/uL; Basophil% 0.5 % (0-1); Eosinophil# 0.04 X10^3/uL; Eosinophils% 0.7 % (0-5); Hematocrit 33.2 % (37-47); Hemoglobin 10.4 g/dL (12.0-15.0); Lymphocyte # 1.31 X10^3/ul (4.0); Lymphocyte % 23.4 % (19-41); Mean Corp Hgb Conc 31.3 g/dL (32-36); Mean Corpuscular Hgb 28.8 pg (27.0-32.0); Mean Platelet Vol. 9.2 fl (6.2-12.0); Monocyte# 0.48 X10^3/uL; Monocyte% 8.6 % (0-10); NRBC Flagged by Analyzer 0 % (0-5); Neutrophil # 3.73 X10^3/uL (2.7-7.7); Neutrophil % 66.4 % (47-70); Platelet Count 188 K/mm3 (150-450); RBC Distribution Width SD 54.8 fl (35.1-43.9); Red Blood Count 3.61 M/mm3 (4.2-5.4); White Blood Count 5.6 K/mm3 (4.4-11.0)
[2019-04-07] MEDS: Heparin Injection (Vial) 5,000 UNIT/ML VIAL 5000 UNIT SC ×3 (05:34→21:48)
[2019-04-07 05:46] LABS: ALB/GLOB Ratio 0.9 RATIO (0.9-2.4); AST(SGOT) 13 U/L (15-37); Alanine Aminotransfer ALT/SGPT 18 U/L (13-56); Albumin, Serum 2.8 g/dL (3.2-5.0); Alkaline Phosphatase 57 U/L (45-117); Anion Gap 6 (5-15); BUN 16 mg/dL (7-18); BUN/Creat Ratio 15.1 RATIO (10-20); Calcium,Total 7.8 mg/dL (8.5-10.1); Chloride 110 mmol/L (98-107); Creatinine, Serum 1.06 mg/dL (0.55-1.02); EST Glomerular Filtration Rate 54 mL/min (>60); Est Glom Filt Rate - Afr Amer 65 mL/min (>60); Estimated Creatinine Clearance 47.83 ml/min; Globulin 3.2 g/dL (2.2-4.2); Glucose 83 mg/dL (74-106); Sodium Level 140 mmol/L (136-145)
[2019-04-07] MEDS: Folic Acid 1 MG Tablet PO (08:23)
[2019-04-07] MEDS: Magnesium Oxide 400 MG Tablet 200 MG PO (09:18)
--- NOTE | 2019-04-07 11:22 | CASEMGMT ---
Addendum entered by Marisela Medina 04/07/19 11:39: Per OT, pt used to have medical alert but does not any longer. Pt to be provided with list of medical alert systems for reference. Alex DELGADILLO CM Original Note: This RN CM to room with OT recommendations at this time. Pt states no concerns with going home at time of discharge at this time. When therapy discussed, pt states 'I haven't been up at all yet and just need to get moving.' This RN CM discussed HHC and OP therapy with pt at this time and pt states would like OP therapy at this time at [facility], where she has had it in the past. This RN CM to follow for PT eval and pt is aware that this RN CM is available if she has any further questions/concerns, voices understanding. Pt voices no further questions/concerns/needs at this time. Alex DELGADILLO CM
--- NOTE | 2019-04-07 11:59 | PN_ITS ---
Patient Problems: Active and Suspected Problems (Last Updated 04/07/19 @ 12:01 by Jose Owens MD) Syncope and collapse (Acute) Acute kidney injury (Acute) Subjective: Chief complaint: Follow-up after ablation for syncope and acute kidney injury. Patient seen and examined. No acute events overnight. Small, she is awake and oriented x3. She denied any complaints apart from weakness and fatigue. She denied dizziness or lightheadedness. She denied chest pain or shortness of breath. Her vital signs are stable, blood pressure improved. - Physical Exam Vitals/I&O's: Vital Signs Temp Pulse Resp BP Pulse Ox 97.7 F L 62 18 160/82 H 93 04/07/19 08:15 04/07/19 08:16 04/07/19 08:15 04/07/19 08:16 04/07/19 08:15 Oxygen Delivery Method Room Air Weight: 141 lb 5.061 oz Body Mass Index (BMI) 34.8 Finger Stick Blood Glucose 140 Orthostatic Vital Signs Start: 04/07/19 08:16 Freq: q24h Status: Active Protocol: Activity Type Activity Date Activity User E-Sign Co-Sign Detail Recorded Client Recorded Date Recorded By Document 04/07/19 08:16 [id number] 04/07/19 08:21 [email or web address] 04/07/19 08:16 Orthostatic Vitals Standing -Extremity Use Left Arm Sitting -Blood Pressure (90/60-120/80) 152/90 H -Extremity Use Left Arm -Pulse Rate (60-100) 70 Lying -Blood Pressure (90/60-120/80) 160/82 H -Extremity Use Left Arm -Pulse Rate (60-100) 62 Intake and Output for Last 24 Hours 04/05/19 04/06/19 04/07/19 23:59 23:59 23:59 Intake Total 1240.00 / 1240.00 Output Total 250 / 250 275 / 275 Balance -250 / -250 965.00 / 965.00 General: Alert, Oriented x3, Cooperative, No apparent distress HEENT: Atraumatic, PERRLA, EOMI, Normocephalic Oral: Moist Mucosa, No Gingival or Mucosal Lesions/ Ulcerations Neck: Supple, No JVD, Negative Carotid Bruits, Trachea Midline, Thyroid Normal Size and Texture Lungs: Clear to auscultation, Normal air movement, No rhonchi, No wheeze, No rales, Diminished Cardiovascular: Regular rate, Regular Rhythm, Normal S1, Normal S2, PMI Normal Abdomen: Bowel Sounds Present, Soft, Non Tender, Non-Distended, No Hepato- splenomegaly Extremities: No clubbing, No cyanosis, No edema Skin: No rashes, No breakdown Lymphatic: No Cervical, Supraclavicular, or Inguinal Adenopathy Neurological: Cranial nerves II-XII grossly intact, Neuro grossly intact Psych/Mental Status: Normal Affect, Appropriate, Alert and oriented to time, place, person, mood and affect Laboratory Results 04/06/19 20:00: WBC 5.5, RBC 4.04 L, Hgb 11.7 L, Hct 37.7, MCV 93.3, MCH 29.0, MCHC 31.0 L, RDW Std Deviation 54.2 H, RDW Coeff of [place] 15.9 H, Plt Count 214, MPV 10.0, Immature Gran % (Auto) 0.400, Neut % (Auto) 68.0, Lymph % (Auto) 22.9, [place] % (Auto) 7.0, Eos % (Auto) 1.1, Baso % (Auto) 0.6, Absolute Neuts (auto) 3.7, Absolute Lymphs (auto) 1.25, Nucleated RBC % 0 04/06/19 20:00: Sodium 138, Potassium 3.8, Chloride 106, Carbon Dioxide 27.0, Anion Gap 5, BUN 15, Creatinine 1.42 H, Estim Creat Clear Calc 25.34, Est GFR (MDRD) Af Amer 47 L, Est GFR (MDRD) Non-Af 39 L, BUN/Creatinine Ratio 10.6, Glucose 159 H, Calcium 8.7, Total Bilirubin 0.20, AST 16, ALT 21, Alkaline Phosphatase 60, Total Protein 7.1, Albumin 3.3, Globulin 3.8, Albumin/Globulin Ratio 0.9 04/06/19 20:39: Urine Color Yellow, Urine Clarity Clear, Urine pH 7.0, Ur Specific [place] 1.010, Urine Protein 30 H, Urine Glucose (UA) Normal, Urine Ketones 5 H, Urine Occult Blood Negative, Urine Nitrite Negative, Urine Bilirubin Negative, Urine Urobilinogen Normal, Ur Leukocyte Esterase Negative, Urine RBC 0 SEEN, Urine WBC 0 SEEN, Ur Squamous Epith Cells 0-5 SEEN, Urine Bacteria 0 SEEN, Urine Mucus RARE 04/06/19 22:51: Troponin I < 0.015 04/06/19 23:23: POC Glucose 122 H 04/07/19 01:28: Troponin I < 0.015 04/07/19 04:24: WBC 5.6, RBC 3.61 L, Hgb 10.4 L, Hct 33.2 L, MCV 92.0, MCH 28.8, MCHC 31.3 L, RDW Std Deviation 54.8 H, RDW Coeff of Ok 16.0 H, Plt Count 188, MPV 9.2, Immature Gran % (Auto) 0.400, Neut % (Auto) 66.4, Lymph % (Auto) 23.4, [place] % (Auto) 8.6, Eos % (Auto) 0.7, Baso % (Auto) 0.5, Absolute Neuts (auto) 3.7, Absolute Lymphs (auto) 1.31, Nucleated RBC % 0 04/07/19 04:24: Sodium 140, Potassium 4.0, Chloride 110 H, Carbon Dioxide 24.0, Anion Gap 6, BUN 16, Creatinine 1.06 H, Estim Creat Clear Calc 47.83, Est GFR (MDRD) Af Amer 65, Est GFR (MDRD) Non-Af 54 L, BUN/Creatinine Ratio 15.1, Glucose 83, Calcium 7.8 L, Total Bilirubin 0.20, AST 13 L, ALT 18, Alkaline Phosphatase 57, Troponin I < 0.015, Total Protein 6.0 L, Albumin 2.8 L, Globulin 3.2, Albumin/Globulin Ratio 0.9 Clinical Impression(s) from Imaging Studies Brain CT 04/06/19 19:54 IMPRESSION: Moderate atrophy and periventricular white matter ischemic changes with old infarct in left temporal lobe. No evidence for acute bleed. If concern for acute infarct MRI recommended Electronically Signed: Ridge Washington MD at 20:42 EST , Service support , Current Medications Acetaminophen (Tylenol) 650 mg PO Q6H PRN PRN PRN Reason: Pain Score 1-10/Temp > 100.7 F Last Admin: 04/07/19 00:30 Dose: 650 mg Documented by: Albuterol Sulfate (Ventolin Aerosols) 2.5 mg INHALATION Q2H PRN PRN PRN Reason: SOB/Wheezing Cholecalciferol (Vitamin D) 5,000 unit PO DAILY [facility] Last Admin: 04/07/19 09:19 Dose: 5,000 unit Documented by: Folic Acid (Folic Acid) 1 mg PO DAILYCM [facility] Last Admin: 04/07/19 08:23 Dose: 1 mg Documented by: Heparin Sodium (Porcine) (Heparin Na) 5,000 unit SC Q8 [facility] Last Admin: 04/07/19 05:34 Dose: 5,000 unit Documented by: Sodium Chloride () 250 mls @ 15 mls/hr IV .[id number] PRN PRN Reason: Saline Flush Sodium Chloride () 250 mls @ 15 mls/hr IV .[id number] PRN PRN Reason: Additional IVPB Infusion Magnesium Oxide (Mag-Ox 400) 200 mg PO DAILY [facility] Last Admin: 04/07/19 09:18 Dose: 200 mg Documented by: Metoprolol Succinate (Toprol Xl (Beta Berenice)) 50 mg PO BID [facility] Ondansetron HCl (Zofran) 4 mg IV Q8H PRN PRN PRN Reason: NAUSEA/VOMITING Sodium Chloride () 10 - 40 ml IV UD PRN PRN Reason: SALINE FLUSH Last Admin: 04/06/19 22:53 Dose: 10 ml Documented by: Medical Necessity - Tobacco Use Smoking Status: Never smoker Assessment/Plan All Active Problems (Last Updated 04/07/19 @ 12:01 by Jose Owens MD) Syncope and collapse (Acute) Acute kidney injury (Acute) This is a 73 years old female patient presented to the emergency room because of syncopal episode after she started taking Cardura for uncontrolled hypertension and she was found to have acute kidney injury. #1 syncope: Attributed to vasovagal syncope due to Cardura as well as acute kidney injury and dehydration. Patient received IV fluids, blood pressure improved. Her kidney function improved as well. EKG revealed normal sinus rhythm with first-degree AV block, occasional PACs, no acute skin changes. Troponin was negative x3. CT scan brain showed no acute findings. Plan to continue same treatment. #2 acute kidney injury: Due to dehydration and probably because of Bactrim as well. Has been on IV fluids, kidney function improved. Admission creatinine was 1.42, came down to 1.26 today. Resolved. #3 uncontrolled hypertension: Patient saw Dr. Daniels yesterday for uncontrolled hypertension. She was started on Cardura because her blood pressure was not controlled on beta-blockers. According to the notes, patient did not tolerate calcium channel blockers or SONIA inhibitor's. This morning, blood pressure was okay but started to go up. Metoprolol held. Plan: Resume metoprolol, monitor blood pressure, we need to start a different blood pressure medicine tomorrow if blood pressure kept going up. #4 history of non-STEMI: Stable, no acute issues. Continue metoprolol. #5 history of SVT: EKG revealed normal sinus rhythm with first-degree heart block, heart rate is controlled. #6 sarcoidosis: Stable, no acute issues. #7 DVT prophylaxis: Subcu heparin. This note was generated with [employer] dictation software. It may contain incorrect words, spelling, and punctuation that were not noted in checking the note before signing. Code Visit Inpatient E&M: 01892 Subs Hosp L2
[2019-04-07] MEDS: Metoprolol(XL)Succ 50 MG Tablet PO (21:48)
[2019-04-08] VITALS (12 sets, daily range): BP systolic 119–184; BP diastolic 60–92; PULSE 49–97; RESP 14–18; TEMP 36.6–37.2; O2SAT 94–96
[2019-04-08] MEDS: Heparin Injection (Vial) 5,000 UNIT/ML VIAL 5000 UNIT SC ×3 (05:48→21:23)
[2019-04-08] MEDS: Folic Acid 1 MG Tablet PO (08:09)
[2019-04-08] MEDS: Magnesium Oxide 400 MG Tablet 200 MG PO (08:09)
[2019-04-08] MEDS: Metoprolol(XL)Succ 50 MG Tablet PO ×2 (08:09→21:23)
--- NOTE | 2019-04-08 09:56 | CASEMGMT ---
Per RN patient now agrees to going to a halfway facility. SW printed a list of facilities that are in network with her insurance. SW took patient the list and explained to her that she will need to pick her top 3 choices and SW will check on bed availability etc. She also asked about living will. SW asked if she meant the healthcare living will and she meant the other living will. SW explained [facility] only assists with healthcare LW and explained document to her. SW told her SW will check back in a little bit and will bring her documents. Gissel DICK MSW
--- NOTE | 2019-04-08 10:10 | PCM.PROGNOTE ---
Patient Problems: Active and Suspected Problems (Last Updated 04/07/19 @ 12:01 by Jose Owens MD) Syncope and collapse (Acute) Acute kidney injury (Acute) Subjective: Chief complaint: Follow-up after admission for syncope, acute kidney injury and debility. Patient seen and examined. No acute events overnight. Today, she had no specific complaints apart from weakness and fatigue. Her vital signs are stable. - Physical Exam Vitals/I&O's: Vital Signs Temp Pulse Resp BP Pulse Ox 97.9 F 64 15 183/71 H 94 04/08/19 07:55 04/08/19 08:09 04/08/19 07:55 04/08/19 08:09 04/08/19 07:55 Oxygen Delivery Method Room Air Weight: 175 lb 11.335 oz Body Mass Index (BMI) 34.8 Finger Stick Blood Glucose 140 Orthostatic Vital Signs Start: 04/07/19 08:16 Freq: q24h Status: Active Protocol: Activity Type Activity Date Activity User E-Sign Co-Sign Detail Recorded Client Recorded Date Recorded By Document 04/07/19 08:16 [id number] 04/07/19 08:21 [email or web address] 04/07/19 08:16 Orthostatic Vitals Standing -Extremity Use Left Arm Sitting -Blood Pressure (90/60-120/80) 152/90 H -Extremity Use Left Arm -Pulse Rate (60-100) 70 Lying -Blood Pressure (90/60-120/80) 160/82 H -Extremity Use Left Arm -Pulse Rate (60-100) 62 Intake and Output for Last 24 Hours 04/06/19 04/07/19 04/08/19 23:59 23:59 23:59 Intake Total 1960.00 / 1960.00 Output Total 250 / 250 275 / 275 Balance -250 / -250 1685.00 / 1685.00 General: Alert, Oriented x3, Cooperative, No apparent distress HEENT: Atraumatic, PERRLA, EOMI, Normocephalic Oral: Moist Mucosa, No Gingival or Mucosal Lesions/ Ulcerations Neck: Supple, No JVD, Negative Carotid Bruits, Trachea Midline, Thyroid Normal Size and Texture Lungs: Clear to auscultation, Normal air movement, No rhonchi, No wheeze, No rales, Diminished Cardiovascular: Regular rate, Regular Rhythm, Normal S1, Normal S2 Abdomen: Bowel Sounds Present, Soft, Non Tender, Non-Distended, No Hepato-splenomegaly Extremities: No clubbing, No cyanosis, No edema Skin: No rashes, No breakdown Lymphatic: No Cervical, Supraclavicular, or Inguinal Adenopathy Neurological: Cranial nerves II-XII grossly intact, Neuro grossly intact Psych/Mental Status: Normal Affect, Appropriate, Alert and oriented to time, place, person, mood and affect Current Medications Acetaminophen (Tylenol) 650 mg PO Q6H PRN PRN PRN Reason: Pain Score 1-10/Temp > 100.7 F Last Admin: 04/07/19 21:54 Dose: 650 mg Documented by: Albuterol Sulfate (Ventolin Aerosols) 2.5 mg INHALATION Q2H PRN PRN PRN Reason: SOB/Wheezing Cholecalciferol (Vitamin D) 5,000 unit PO DAILY [facility] Last Admin: 04/08/19 08:08 Dose: 5,000 unit Documented by: Folic Acid (Folic Acid) 1 mg PO DAILYCM [facility] Last Admin: 04/08/19 08:09 Dose: 1 mg Documented by: Heparin Sodium (Porcine) (Heparin Na) 5,000 unit SC Q8 [facility] Last Admin: 04/08/19 05:48 Dose: 5,000 unit Documented by: Sodium Chloride () 250 mls @ 15 mls/hr IV .[id number] PRN PRN Reason: Saline Flush Sodium Chloride () 250 mls @ 15 mls/hr IV .[id number] PRN PRN Reason: Additional IVPB Infusion Magnesium Oxide (Mag-Ox 400) 200 mg PO DAILY [facility] Last Admin: 04/08/19 08:09 Dose: 200 mg Documented by: Metoprolol Succinate (Toprol Xl (Beta Berenice)) 50 mg PO BID [facility] Last Admin: 04/08/19 08:09 Dose: 50 mg Documented by: Ondansetron HCl (Zofran) 4 mg IV Q8H PRN PRN PRN Reason: NAUSEA/VOMITING Sodium Chloride () 10 - 40 ml IV UD PRN PRN Reason: SALINE FLUSH Last Admin: 04/06/19 22:53 Dose: 10 ml Documented by: Medical Necessity - Tobacco Use Smoking Status: Never smoker Assessment/Plan All Active Problems (Last Updated 04/07/19 @ 12:01 by Jose Owens MD) Syncope and collapse (Acute) Acute kidney injury (Acute) This is a 73 years old female patient presented to the emergency room because of syncopal episode after she started taking Cardura for uncontrolled hypertension and she was found to have acute kidney injury. #1 syncope: Attributed to vasovagal syncope due to Cardura as well as acute kidney injury and dehydration. EKG revealed normal sinus rhythm with first-degree AV block, occasional PACs, no acute skin changes. Troponin was negative x3. CT scan brain showed no acute findings. Resolved. #2 acute kidney injury: Due to dehydration and probably because of Bactrim as well. Has been on IV fluids, kidney function improved. #3 uncontrolled hypertension: She is only on metoprolol at this time. Blood pressure has been fluctuating significantly. This morning, it was up to 180 systolic, last night was 140 systolic and yesterday morning was around [address] Daniels the day before admission for uncontrolled hypertension. She was started on Cardura because her blood pressure was not controlled on beta-blockers. According to the notes, patient did not tolerate calcium channel blockers or SONIA inhibitor's. After discussion with cardiology, I will start patient on small dose of Norvasc 2.5 mg p.o. daily. #4 history of non-STEMI: Stable, no acute issues. Continue metoprolol. #5 history of SVT: EKG revealed normal sinus rhythm with first-degree heart block, heart rate is controlled. #6 sarcoidosis: Stable, no acute issues. #7 DVT prophylaxis: Subcu heparin. This note was generated with [employer] dictation software. It may contain incorrect words, spelling, and punctuation that were not noted in checking the note before signing. Code Visit Inpatient E&M: 19216 Subs Hosp L2
--- NOTE | 2019-04-08 11:03 | CASEMGMT ---
SW spoke with patient and her preference is 1. [facility] and 2. [place]. SW told her SW will let her know when SW finds out if there are any available beds in TCU. SW also gave her Healthcare POA and Healthcare LW papers and explained them to her. She was not sure she wanted to complete them right now. SW told her to let SW know if she wants to complete them while in hospital. SW also told her she can complete them at whatever facility she will go to at d/c. [facility]ADIQ called [facility] post acute referral line and left a voice mail with referral. Await return call. Gissel DICK MSW
[2019-04-08] MEDS: amLODIPine 2.5 MG Tablet PO (12:40)
--- NOTE | 2019-04-08 12:45 | CASEMGMT ---
[facility] called [facility] and TCU can accept patient. She will start the pre-cert right now. SADIQ let patient know TCU will have a bed for her and we just need to wait on insurance to approve her. Plan: [facility] pending insurance approval. Gissel DICK MSW
[2019-04-08] MEDS: Acetaminophen 325 MG Tablet 650 MG PO (14:43)
[2019-04-09] VITALS (7 sets, daily range): BP systolic 114–179; BP diastolic 57–89; PULSE 55–63; RESP 14–18; TEMP 36.4–36.6; O2SAT 93–94
[2019-04-09] MEDS: Acetaminophen 325 MG Tablet 650 MG PO ×2 (00:44→08:25)
[2019-04-09] MEDS: Heparin Injection (Vial) 5,000 UNIT/ML VIAL 5000 UNIT SC (05:47)
[2019-04-09] MEDS: Metoprolol(XL)Succ 50 MG Tablet PO (08:28)
[2019-04-09] MEDS: Magnesium Oxide 400 MG Tablet 200 MG PO (08:28)
[2019-04-09] MEDS: amLODIPine 2.5 MG Tablet PO (08:28)
[2019-04-09] MEDS: Folic Acid 1 MG Tablet PO (08:29)
--- NOTE | 2019-04-09 10:54 | PCM.TXEXTCAR ---
- Diet 04/07/19 00:19 Diet: Cardiac/Low Cholesterol Is pt able to select menu?: Yes - Suggestions for Active Care Change Position every (hours): 3 Hours to sit in a chair: 2 Times a day to sit in chair: 3 - Therapies Weight Bearing: Weight bearing as tolerated Physical Therapy: Eval and Treat Occupational Therapy: Eval and Treat - Allergies/Procedures Done in Hospital Allergies/Adverse Reactions: Allergies hydrochlorothiazide Allergy (Intermediate, Verified 04/06/19 12:00) low sodium atorvastatin [From Lipitor] Allergy (Verified 04/06/19 12:00) Unknown doxazosin [From Cardura] Allergy (Verified 04/08/19 19:14) Other VASOVAGAL lisinopril Allergy (Verified 04/06/19 12:00) Angioedema amlodipine [From Norvasc] Adverse Reaction (Severe, Verified 04/06/19 12:00) Freezes up limbs nifedipine [From Nifedical XL] Adverse Reaction (Severe, Verified 04/06/19 12:00) Freezes up limbs alendronate sodium [From Fosamax] Adverse Reaction (Intermediate, Verified 04/06/19 12:00) GI upset codeine Adverse Reaction (Verified 04/06/19 12:00) Unknown ibuprofen Adverse Reaction (Verified 04/06/19 12:00) Other HCTA Adverse Reaction (Intermediate, Uncoded 04/06/19 12:00) Low sodium - Type of Care/Length of Stay Estimated LOS: Convalescent Care Less Than 30 days Type of Care Needed: Skilled Rehab Potential: Good Prognosis: Good - Additional Orders/Day of Discharge H&P will serve as current which was dated: 04/06/19 Day of Discharge: 04/09/19 - Dietary and Speech Recommendations Dietitian Recommendations/Changes: Continue cardiac diet. Please reweigh. - Follow Up Care Primary Care Physician: Michael Snowden Chi, MD [Primary Care Provider] - Please follow up with your Primary Care Physician in: 1 week. Please Follow Up With: Bret Daniels MD When: 1-2 weeks.
--- NOTE | 2019-04-09 12:12 | PCM.DC.SUM ---
Discharge Date and Diagnosis - Problem List Patient Problems: Active and Suspected Problems (Last Updated 04/07/19 @ 12:01 by Jose Owens MD) Encephalopathy (Acute) Date of Admission: 04/06/19 Date of Discharge: 04/09/19 - Primary Discharge Diagnosis Active and Suspected Problems (Last Updated 04/07/19 @ 12:01 by Jose Owens MD) #1 syncopal episode, attributed to vasovagal syncope due to cardura. #2 acute kidney injury. #3 uncontrolled hypertension. 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 No evidence for acute bleed. If concern for acute infarct MRI recommended Electronically Signed: Ridge Washington MD at 20:42 EST , Service support , Operations: None Procedures: EKG Summary of Care Provided: Patient seen and examined on the day of discharge and appeared to be stable to discharge to residential facility. She has no complaints. After patient knew that she was started on small dose of Norvasc, she complained of wound sensation. His vitals are stable. She has no rash. The patient is a 73 year old F patient presented to the emergency room because of syncopal episode after she started taking Cardura for uncontrolled hypertension. This patient history of uncontrolled hypertension for which she has been on different antihypertensive medications and she has multiple weird symptoms for calcium channel blockers and SONIA inhibitors. Upon arrival to ED, patient was hypotensive after she took the Cardura. Her EKG revealed normal sinus rhythm with first-degree AV block, occasional PVCs without evidence of acute segment changes or cardiac arrhythmias. Troponin was negative x3. CT scan brain showed no acute findings. The syncope attributed to cardura. She was found to have acute kidney injury secondary to dehydration which was treated with IV fluids and her kidney function improved. As mentioned above, her blood pressure has been uncontrolled. During this hospital stay, her blood pressures kept fluctuating significantly, goes up to 180 systolic and down to 100 systolic. She was continued only on metoprolol XL 50 mg p.o. twice daily. I spoke with cardiology and we agreed to start patient on small dose of Norvasc although she has weird reaction to Norvasc in the past. Patient was given a small dose of Norvasc. Patient discharged to residential facility in a stable medical condition, discharged on Norvasc 2.5 mg p.o. daily, continued on her previous home medications including metoprolol XL 50 mg p.o. twice daily, plan to follow-up with cardiology in 1 to 2 weeks, recommended from with PCP in 1 week. Patient Problems: Active and Suspected Problems (Last Updated 04/07/19 @ 12:01 by Jose Owens MD) Encephalopathy (Acute) - Physical Exam Vitals/I&O's: Vital Signs Temp Pulse Resp BP Pulse Ox 97.6 F L 57 L 16 114/57 L 94 04/09/19 11:59 04/09/19 11:59 04/09/19 11:59 04/09/19 11:59 04/09/19 11:59 Oxygen Delivery Method Room Air Weight: 172 lb 13.478 oz Body Mass Index (BMI) 34.8 Finger Stick Blood Glucose 140 Orthostatic Vital Signs Start: 04/07/19 08:16 Freq: q24h Status: Active Protocol: Activity Type Activity Date Activity User E-Sign Co-Sign Detail Recorded Client Recorded Date Recorded By Document 04/07/19 08:16 [id number] 04/07/19 08:21 JM8 04/07/19 08:16 Orthostatic Vitals Standing -Extremity Use Left Arm Sitting -Blood Pressure (90/60-120/80) 152/90 H -Extremity Use Left Arm -Pulse Rate (60-100) 70 Lying -Blood Pressure (90/60-120/80) 160/82 H -Extremity Use Left Arm -Pulse Rate (60-100) 62 Intake and Output for Last 24 Hours 04/07/19 04/08/19 04/09/19 23:59 23:59 23:59 Intake Total 1960.00 / 1959. 1190 / 1190 520 / 520 Output Total 275 / 275 50 / 50 400 / 400 Balance 1685.00 / 1685.00 1140 / 1140 120 / 120 General: Alert, Oriented x3, Cooperative, No apparent distress HEENT: Atraumatic, PERRLA, EOMI, Normocephalic Oral: Moist Mucosa, No Gingival or Mucosal Lesions/ Ulcerations Neck: Supple, No JVD, Negative Carotid Bruits, Trachea Midline, Thyroid Normal Size and Texture Lungs: Clear to auscultation, Normal air movement, No rhonchi, No wheeze, No rales Cardiovascular: Regular rate, Regular Rhythm, Normal S1, Normal S2, PMI Normal Abdomen: Bowel Sounds Present, Soft, Non Tender, Non-Distended, No Hepato-splenomegaly Extremities: No clubbing, No cyanosis, No edema Skin: No rashes, No breakdown Lymphatic: No Cervical, Supraclavicular, or Inguinal Adenopathy Neurological: Cranial nerves II-XII grossly intact, Neuro grossly intact Psych/Mental Status: Normal Affect, Appropriate Current Medications Acetaminophen (Tylenol) 650 mg PO Q6H PRN PRN PRN Reason: Pain Score 1-10/Temp > 100.7 F Last Admin: 04/09/19 08:25 Dose: 650 mg Documented by: Albuterol Sulfate (Ventolin Aerosols) 2.5 mg INHALATION Q2H PRN PRN PRN Reason: SOB/Wheezing Amlodipine Besylate (Norvasc) 2.5 mg PO DAILY [facility] Last Admin: 04/09/19 08:28 Dose: 2.5 mg Documented by: Cholecalciferol (Vitamin D) 5,000 unit PO DAILY [facility] Last Admin: 04/09/19 08:27 Dose: 5,000 unit Documented by: Folic Acid (Folic Acid) 1 mg PO DAILYCM [facility] Last Admin: 04/09/19 08:29 Dose: 1 mg Documented by: Heparin Sodium (Porcine) (Heparin Na) 5,000 unit SC Q8 [facility] Last Admin: 04/09/19 05:47 Dose: 5,000 unit Documented by: Sodium Chloride () 250 mls @ 15 mls/hr IV .[id number] PRN PRN Reason: Saline Flush Sodium Chloride () 250 mls @ 15 mls/hr IV .[id number] PRN PRN Reason: Additional IVPB Infusion Magnesium Oxide (Mag-Ox 400) 200 mg PO DAILY [facility] Last Admin: 04/09/19 08:28 Dose: 200 mg Documented by: Metoprolol Succinate (Toprol Xl (Beta Berenice)) 50 mg PO BID [facility] Last Admin: 04/09/19 08:28 Dose: 50 mg Documented by: Ondansetron HCl (Zofran) 4 mg IV Q8H PRN PRN PRN Reason: NAUSEA/VOMITING Sodium Chloride () 10 - 40 ml IV UD PRN PRN Reason: SALINE FLUSH Last Admin: 04/06/19 22:53 Dose: 10 ml Documented by: Home Medications: Medications to take at Discharge Metoprolol(XL)Succ [Toprol Xl (Beta Berenice)] 50 mg PO BID #60 tab 08/27/17 Cholecalciferol (Vitamin D3) [Vitamin D3] 5,000 unit PO DAILY 04/03/19 Folic Acid 1 mg PO DAILY 04/03/19 Magnesium 250 mg PO DAILY 04/03/19 Vitamin B Complex [B Complex] 1 ea PO DAILY 04/03/19 Acetaminophen [Tylenol] 500 mg PO Q4H 04/08/19 Amlodipine [Norvasc] 2.5 mg PO DAILY 04/09/19 Primary Care Physician: Michael Snowden Chi, MD [Primary Care Provider] - Please follow up with your Primary Care Physician in: 1 week. Please Follow Up With: Bert Daniels MD When: 1-2 weeks. Disposition: Senior Living facility Minutes spent on discharge:: 27 Patient Condition:: Stable Medical Necessity - Tobacco Use Smoking Status: Never smoker Meaningful Use Info Meaningful Use Diagnoses (Choose all that apply): None applicable Code Visit Inpatient E&M: 09784 Disch Hosp
--- NOTE | 2019-04-09 12:15 | CASEMGMT ---
Received call from [facility] and patient was approved to go to TCU. SW notified RN, patient, final inspector motorcyles, and RN CM notified physician. Plan: d/c to [facility]CU under skilled level of care. Gissel MORALES
--- NOTE | 2019-04-09 12:15 | PHA.DC.MR ---
Pharmacy Service has performed discharge medication reconciliation for this patient. Home Medications Metoprolol(XL)Succ [Toprol Xl (Beta Berenice)] 50 mg PO BID #60 tab 08/27/17 Cholecalciferol (Vitamin D3) [Vitamin D3] 5,000 unit PO DAILY 04/03/19 Folic Acid 1 mg PO DAILY 04/03/19 Magnesium 250 mg PO DAILY 04/03/19 Vitamin B Complex [B Complex] 1 ea PO DAILY 04/03/19 Acetaminophen [Tylenol] 500 mg PO Q4H 04/08/19 Amlodipine [Norvasc] 2.5 mg PO DAILY #30 tab 04/09/19 The patient's discharge medication list was reviewed for discrepancies and discrepancies were resolved.
--- NOTE | 2019-04-09 13:14 | NURSING ---
report given to Karol on TCU. pt to go to room 15
== END 2019-04-09 13:29 | disposition skilled nursing facility (03) | DRG 683 ==
LOC: ED 21:34 → PCU 04-07 07:17
PROVIDERS: Admitting Provider Internal Medicine; Emergency Provider Emergency Medicine; Family Provider Family Medicine Geriatric Medicine; PCP Family Medicine Geriatric Medicine; Visit Provider Hospitalist
DX: N17.9 Acute kidney failure, unspecified (principal); I47.1 Supraventricular tachycardia; G93.40 Encephalopathy, unspecified; N30.91 Cystitis, unspecified with hematuria; R55 Syncope and collapse; T44.6X5A Adverse effect of alpha-adrenoreceptor antagonists, initial encounter; E86.0 Dehydration; I49.1 Atrial premature depolarization; I10 Essential (primary) hypertension; I44.0 Atrioventricular block, first degree; I35.0 Nonrheumatic aortic (valve) stenosis; D86.9 Sarcoidosis, unspecified; M19.90 Unspecified osteoarthritis, unspecified site; G47.33 Obstructive sleep apnea (adult) (pediatric); E66.9 Obesity, unspecified; Z68.34 Body mass index [BMI] 34.0-34.9, adult; Y92.9 Unspecified place or not applicable; I25.2 Old myocardial infarction; Z87.440 Personal history of urinary (tract) infections; Z87.11 Personal history of peptic ulcer disease; Z86.73 Personal history of transient ischemic attack (TIA), and cerebral infarction without residual deficits; Z96.653 Presence of artificial knee joint, bilateral
CPT/HCPCS: 36415; 70450; 74176; 80048; 80053; 81001; 82962; 84484; 85025; 87086; 87088; 92610; 93005; 97162; 97166; 97530; 97535; 97802; 99251; 99284; 99285; J7030; P9612; A4216; G0463

== ENCOUNTER 2019-04-09 13:35 | Inpatient (IN) | payer MEDICARE, SELFPAY ==
[2019-04-06 22:56] VITALS: BMI 34.8
[2019-04-09 13:55] VITALS: BP 127/64; PULSE 68; RESP 16; TEMP 36.9; O2SAT 95
[2019-04-09 14:14] VITALS: BMI 34.6
[2019-04-09 14:24] VITALS: BMI 34.6
--- NOTE | 2019-04-09 14:32 | PCM.HP.STD ---
Problem List (1) Debility Status: Acute (2) Unresponsive Status: Acute (3) Encephalopathy Status: Acute (4) Hypotension Status: Acute (5) Hypertension Status: Chronic (6) Aortic stenosis Status: Chronic (7) Sarcoidosis Status: Chronic (8) Acute kidney injury Status: Acute (9) Supraventricular tachycardia Status: Chronic History of Present Illness Date of Admission: 04/09/19 Chief Complaint: Here for rehabilitation, strengthening, prior to discharge home alone. The patient is a 73 year old Female with below past medical history presented to [facility] Emergency Department 04/06/2019 with unresponsiveness. 04/06/2019 CT brain moderate atrophy, old left temporal lobe infarct. 04/06/2019 EKG sinus rhythm, 1st degree AV block with premature atrial contractions, inferior infarct, age undetermined. Cannot rule out anterior infarct, age undetermined. Recent Bactrim for urinary tract infection. Recent Cardura 4MG for improved blood pressure control. Went to bathroom, felt weak, slumped over. Moans to noxious stimuli. Hemoglobin 11.7, Cr 1.42, UA okay. Unresponsive, hypotensive, bradycardic. 04/06/2019 Admit to Hospital. Hypotensive secondary to Doxazosin. Hold Metoprolol, Hold Doxazosin. IV fluids for hypotensive, acute kidney injury. Hold bactrim. 04/07/2019 Kidney function improved. Troponin negative x 3. Hold Metoprolol. 04/08/2019 Amlodipine 2.5MG added for hypertension. 04/09/2019 Admit to TCU with debility, here for rehabilitation, strengthening, prior to discharge home alone. Past Medical History Past Medical History (Chronic Problems): Chronic Problems (Last Updated 04/07/19 @ 12:01 by Jose Owens MD) Hypertension (Chronic) Aortic stenosis (Chronic) Sarcoidosis (Chronic) Supraventricular tachycardia (Chronic) Nonrheumatic aortic (valve) stenosis (Chronic) Essential (primary) hypertension (Chronic) Subsequent non-ST elevation (NSTEMI) myocardial infarction (Chronic 02/16/15) 02/16/15 Medical History: Medical History (Last Updated 04/07/19 @ 12:01 by Jose Owens MD) Supraventricular tachycardia (Chronic) I47.1 Nonrheumatic aortic (valve) stenosis (Chronic) I35.0 Essential (primary) hypertension (Chronic) I10 Subsequent non-ST elevation (NSTEMI) myocardial infarction (Chronic) Onset Date: 02/16/15 I22.2 02/16/15 BMI 40.0-44.9, adult Z68.41 Gastroparesis K31.84 Myelopathy G95.9 GERARDO (obstructive sleep apnea) G47.33 Obesity (BMI 30-39.9) E66.9 Osteoarthritis M19.90 Sarcoidosis D86.9 Spinal cord lesion G95.9 Stroke I63.9 Upper GI bleed K92.2 Allergies hydrochlorothiazide Allergy (Intermediate, Verified 04/06/19 12:00) low sodium atorvastatin [From Lipitor] Allergy (Verified 04/06/19 12:00) Unknown doxazosin [From Cardura] Allergy (Verified 04/08/19 19:14) Other VASOVAGAL lisinopril Allergy (Verified 04/06/19 12:00) Angioedema amlodipine [From Norvasc] Adverse Reaction (Severe, Verified 04/06/19 12:00) Freezes up limbs nifedipine [From Nifedical XL] Adverse Reaction (Severe, Verified 04/06/19 12:00) Freezes up limbs alendronate sodium [From Fosamax] Adverse Reaction (Intermediate, Verified 04/06/19 12:00) GI upset codeine Adverse Reaction (Verified 04/06/19 12:00) Unknown ibuprofen Adverse Reaction (Verified 04/06/19 12:00) Other HCTA Adverse Reaction (Intermediate, Uncoded 04/06/19 12:00) Low sodium Home Medications: Ambulatory Orders Medication Instructions Recorded Metoprolol(XL)Succ [Toprol Xl 50 mg PO BID #60 tab 08/27/17 (Beta Berenice)] Cholecalciferol (Vitamin D3) 5,000 unit PO DAILY 04/03/19 [Vitamin D3] Folic Acid 1 mg PO DAILY 04/03/19 Magnesium 250 mg PO DAILY 04/03/19 Vitamin B Complex [B Complex] 1 ea PO DAILY 04/03/19 Acetaminophen [Tylenol] 500 mg PO Q4H 04/08/19 Amlodipine [Norvasc] 2.5 mg PO DAILY 04/09/19 Surgical History: Surgical History (Last Updated 04/07/19 @ 07:25 by Jose Owens MD) Status post surgical removal of malignant neoplasm of skin Z98.890 History of arthroplasty of right knee Z96.651 History of bunionectomy of right great toe Z98.890 late 1980s History of cataract extraction Z98.49 History of tonsillectomy Z90.89 History of tonsillectomy Z90.89 1951 History of total left knee replacement Z96.652 2005 History of total right knee replacement Z96.651 08/20/10 Hx of LASIK Z98.890 left eye 2005 Status post right foot surgery Z98.890 bones fused together 1995 Surgical History: cataract, total knee arthroplasty - Bilateral., tonsillectomy, - - bilateral foot surgery to toes and bunionectomy. 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 Maternal Family History: Family History (Last Reviewed 04/06/19 @ 16:03 by Bret Daniels MD) Father Hypertension Aortic aneurysm Mother Hypertension Sister Hypertension Diabetes History Items: Heart Disease, Hypertension Sibling Family History: Family History (Last Reviewed 04/06/19 @ 16:03 by Bret Daniels MD) Father Hypertension Aortic aneurysm Mother Hypertension Sister Hypertension Diabetes History Items: Diabetes, Hypertension Review of Systems Constitutional: Reports: Weakness. Denies: Chills, Fever, Weight Change HEENT: Denies: Head Aches, Sinus Congestion, Sinus Drainage Cardiovascular: Denies: Chest Pain, Palpitations Respiratory: Denies: Cough, Shortness of breath at rest, Sputum production Gastrointestinal: Denies: Abdominal Pain, Nausea, Vomiting Genitourinary: Denies: Dysuria Musculoskeletal: Denies: Joint Pain, Joint Tenderness Skin: Denies: Rash, Wounds Neurological: Denies: Numbness, Tingling, Focal weakness Psychiatric: Denies: Anxiety, Depression, Homicidal Ideations, Suicidal Ideations Hematologic/ Lymphatic: Denies: Easy Bruising, Easy Bleeding VTE Information - Inpt Only VTE Present on Admission: No VTE Mechan Device Prophylaxis: Knee High LORRIE Hose VTE Pharm Prophylaxis ordered?: Yes Patient Problems: Active and Suspected Problems (Last Updated 04/07/19 @ 12:01 by Jose Owens MD) Debility (Acute) Unresponsive (Acute) Encephalopathy (Acute) Hypotension (Acute) - Physical Exam Vitals/I&O's: Vital Signs Temp Pulse Resp BP Pulse Ox 98.4 F 68 16 127/64 H 95 04/09/19 13:55 04/09/19 13:55 04/09/19 13:55 04/09/19 13:55 04/09/19 13:55 Oxygen Delivery Method Room Air Weight: 77.8 kg Body Mass Index (BMI) 34.6 Finger Stick Blood Glucose 140 General: Alert, Oriented x3, Cooperative HEENT: Atraumatic, PERRLA, EOMI, Normocephalic Neck: Supple, No JVD, Negative Carotid Bruits Lungs: Clear to auscultation, Normal air movement Cardiovascular: Regular rate, No murmurs Abdomen: Bowel Sounds Present, Soft, Non Tender Extremities: No edema, Capillary Refill Less than 3 Seconds Skin: No rashes, No breakdown Musculoskeletal: No Tenderness to Palpation of Joints or Extremities Neurological: Cranial nerves II-XII grossly intact Psych/Mental Status: Normal Affect, Appropriate Current Medications Acetaminophen (Tylenol) 500 mg PO Q6H PRN PRN PRN Reason: Pain Score 1-10/10 Amlodipine Besylate (Norvasc) 2.5 mg PO DAILY [facility] Cholecalciferol (Vitamin D) 5,000 unit PO DAILY [facility] Folic Acid (Folic Acid) 1 mg PO DAILY [facility] Magnesium Oxide (Mag-Ox 400) 200 mg PO DAILY [facility] Metoprolol Succinate (Toprol Xl (Beta Berenice)) 50 mg PO BID [facility] Multivitamins (Allbee W/C Caplet, Thera B Comp/C) 1 capsule PO DAILY [facility] Tuberculin PPD (Tubersol, Aplisol, Ppd) 5 tu ID X1 ONE Stop: 04/10/19 10:01 Tuberculin PPD (Tubersol, Aplisol, Ppd) 5 tu ID X1 ONE Stop: 04/17/19 10:01 Assessment/Plan All Active Problems (Last Updated 04/07/19 @ 12:01 by Jose Owens MD) Debility (Acute) Unresponsive (Acute) Encephalopathy (Acute) Hypotension (Acute) Syncope and collapse (Acute) Acute kidney injury (Acute) 73 year old female with below past medical history hospitalized for syncope, secondary to hypotension, acute kidney injury, admitted to TCU with debility, here for rehabilitation, strengthening, prior to discharge home alone. Debility - PT/OT. Pain - Tylenol 1000MG Q6H PRN pain (1-10). Bowel - Miralax 17GM daily, Senna/colace 1 tablet BID, Dulcolax 10MG daily PRN. Adult immunization - Administer Prevnar 13, Pneumovax 23, Fluzone as appropriate. DVT prophylaxis - Lovenox 40MG SC daily. Hypertension - Metoprolol succinate 50MG twice daily, Amlodipine 2.5MG daily. Vitamin D deficiency - D3 5000IU daily. Folate deficiency - Folic Acid 1MG daily. Hypomagnesemia - Magnesium Oxide 200MG daily. Leg cramp - Vitamin B complex 1 capsule daily.
[2019-04-09 17:58] VITALS: PULSE 68
[2019-04-09] MEDS: Metoprolol(XL)Succ 50 MG Tablet PO (17:58)
[2019-04-09] MEDS: Senna/Docusate Sodium 1 Tablet PO (17:58)
[2019-04-09] MEDS: Acetaminophen 500 MG Tablet 1000 MG PO (17:58)
[2019-04-10] MEDS: Acetaminophen 500 MG Tablet 1000 MG PO ×3 (00:04→19:57)
[2019-04-10] MEDS: Enoxaparin 40 MG/0.4 ML Syringe SC (06:23)
[2019-04-10] MEDS: Polyethylene Glycol 3350 17 GM PACKET PO (06:23)
[2019-04-10 06:24] VITALS: BP 141/88; PULSE 63
[2019-04-10] MEDS: amLODIPine 2.5 MG Tablet PO (06:24)
[2019-04-10] MEDS: Metoprolol(XL)Succ 50 MG Tablet PO ×2 (06:24→16:21)
[2019-04-10] MEDS: Vitamin B Comp W-C Capsule 1 CAP PO (06:24)
[2019-04-10] MEDS: Senna/Docusate Sodium 1 Tablet PO (06:24)
[2019-04-10] MEDS: Folic Acid 1 MG Tablet PO (06:24)
[2019-04-10] MEDS: Magnesium Oxide 400 MG Tablet 200 MG PO (06:24)
[2019-04-10 08:02] LABS: Absolute Lymphocyte Count 1.35 X10^3/uL (0.83-4.51); Absolute Neutrophil Count 2.9 X10^3/uL (2.0-7.7); Basophil# 0.03 X10^3/uL; Basophil% 0.6 % (0-1); Eosinophil# 0.17 X10^3/uL; Eosinophils% 3.4 % (0-5); Hematocrit 37.5 % (37-47); Hemoglobin 11.8 g/dL (12.0-15.0); Lymphocyte # 1.35 X10^3/ul (4.0); Mean Corp Hgb Conc 31.5 g/dL (32-36); Mean Corpuscular Hgb 29.2 pg (27.0-32.0); Mean Corpuscular Volume 92.8 fL (81-99); Mean Platelet Vol. 9.8 fl (6.2-12.0); Monocyte# 0.56 X10^3/uL; Monocyte% 11.2 % (0-10); NRBC Flagged by Analyzer 0 % (0-5); Neutrophil # 2.85 X10^3/uL (2.7-7.7); Platelet Count 215 K/mm3 (150-450); RBC Distribution Width CV 16.2 % (11.6-14.6); RBC Distribution Width SD 54.5 fl (35.1-43.9); Red Blood Count 4.04 M/mm3 (4.2-5.4)
[2019-04-10 08:40] LABS: Anion Gap 6 (5-15); BUN 18 mg/dL (7-18); BUN/Creat Ratio 24.7 RATIO (10-20); Chloride 106 mmol/L (98-107); Creatinine, Serum 0.73 mg/dL (0.55-1.02); EST Glomerular Filtration Rate 83 mL/min (>60); Est Glom Filt Rate - Afr Amer 100 mL/min (>60); Estimated Creatinine Clearance 61.54 ml/min; Glucose 87 mg/dL (74-106); Potassium 3.8 mmol/L (3.5-5.1); Sodium Level 141 mmol/L (136-145)
[2019-04-10] MEDS: Tuberculin,Purif.prot.deriv. 50 TU/ML Vial 5 ML ID (10:47)
[2019-04-10 15:13] VITALS: BP 115/73; PULSE 69; RESP 19; TEMP 37.1; O2SAT 95
[2019-04-10 16:21] VITALS: PULSE 69
[2019-04-11] MEDS: amLODIPine 2.5 MG Tablet PO (06:20)
[2019-04-11] MEDS: Magnesium Oxide 400 MG Tablet 200 MG PO (06:20)
[2019-04-11] MEDS: Senna/Docusate Sodium 1 Tablet PO ×2 (06:20→16:51)
[2019-04-11] MEDS: Vitamin B Comp W-C Capsule 1 CAP PO (06:20)
[2019-04-11] MEDS: Folic Acid 1 MG Tablet PO (06:20)
[2019-04-11 06:22] VITALS: BP 145/87; PULSE 68
[2019-04-11] MEDS: Enoxaparin 40 MG/0.4 ML Syringe SC (06:22)
[2019-04-11] MEDS: Metoprolol(XL)Succ 50 MG Tablet PO ×2 (06:22→16:51)
[2019-04-11] MEDS: Acetaminophen 500 MG Tablet 1000 MG PO (14:47)
[2019-04-11 15:13] VITALS: BP 110/75; PULSE 72; RESP 20; TEMP 36.8; O2SAT 96
[2019-04-11 16:51] VITALS: BP 110/75; PULSE 72
[2019-04-12] MEDS: Acetaminophen 500 MG Tablet 1000 MG PO ×3 (00:13→20:41)
[2019-04-12 06:24] VITALS: BP 141/77; PULSE 66
[2019-04-12] MEDS: amLODIPine 2.5 MG Tablet PO (06:24)
[2019-04-12] MEDS: Metoprolol(XL)Succ 50 MG Tablet PO ×2 (06:24→16:35)
[2019-04-12] MEDS: Folic Acid 1 MG Tablet PO (06:24)
[2019-04-12] MEDS: Enoxaparin 40 MG/0.4 ML Syringe SC (06:24)
[2019-04-12] MEDS: Vitamin B Comp W-C Capsule 1 CAP PO (06:24)
[2019-04-12] MEDS: Senna/Docusate Sodium 1 Tablet PO (06:24)
[2019-04-12] MEDS: Magnesium Oxide 400 MG Tablet 200 MG PO (06:24)
--- NOTE | 2019-04-12 15:03 | PHA.CONS_ITS ---
Progress Note - Pharmacy Subjective: TCU Admission Objective: Allergies hydrochlorothiazide Allergy (Intermediate, Verified 04/06/19 12:00) low sodium atorvastatin [From Lipitor] Allergy (Verified 04/06/19 12:00) Unknown doxazosin [From Cardura] Allergy (Verified 04/08/19 19:14) Other VASOVAGAL lisinopril Allergy (Verified 04/06/19 12:00) Angioedema amlodipine [From Norvasc] Adverse Reaction (Severe, Verified 04/06/19 12:00) Freezes up limbs nifedipine [From Nifedical XL] Adverse Reaction (Severe, Verified 04/06/19 12:00) Freezes up limbs alendronate sodium [From Fosamax] Adverse Reaction (Intermediate, Verified 04/06/19 12:00) GI upset codeine Adverse Reaction (Verified 04/06/19 12:00) Unknown ibuprofen Adverse Reaction (Verified 04/06/19 12:00) Other HCTA Adverse Reaction (Intermediate, Uncoded 04/06/19 12:00) Low sodium Current Medications Generic Name Dose Route Start Last Admin Trade Name Freq PRN Reason Stop Dose Admin Acetaminophen 1,000 mg 04/09/19 15:14 04/12/19 10:14 Tylenol PO 500 mg Q6H PRN PRN Administration Pain Score 1-10/10 Amlodipine Besylate 2.5 mg 04/10/19 06:00 04/12/19 06:24 Norvasc PO 2.5 mg DAILY LILLIAN Administration Bisacodyl 10 mg 04/09/19 15:14 Dulcolax PO DAILY PRN Constipation Cholecalciferol 5,000 unit 04/10/19 06:00 04/12/19 06:24 Vitamin D PO 5,000 unit DAILY [facility]ILLIAN Administration Enoxaparin Sodium 40 mg 04/10/19 06:00 04/12/19 06:24 Lovenox SC 40 mg DAILY@0600 LILLIAN Administration Folic Acid 1 mg 04/10/19 06:00 04/12/19 06:24 Folic Acid PO 1 mg DAILY [facility] Administration Magnesium Oxide 200 mg 04/10/19 06:00 04/12/19 06:24 Mag-Ox 400 PO 200 mg DAILY [facility] Administration Metoprolol Succinate 50 mg 04/09/19 18:00 04/12/19 06:24 Toprol Xl (Beta Berenice) PO 50 mg BID [facility] Administration Multi-Ingredient Cream 1 applic 04/11/19 22:00 04/11/19 20:38 Eucerin TOPICAL 1 applicatio QHS [facility] Administration Protocol Multivitamins 1 capsule 04/10/19 06:00 04/12/19 06:24 Allbee W/C Caplet, Thera B Comp/C PO 1 capsule DAILY [facility] Administration Nystatin 1 applic 04/12/19 22:00 Mycostatin Powder TOPICAL 0600,2200 [facility] Protocol Polyethylene Glycol 17 gm 04/10/19 06:00 04/12/19 06:31 Miralax PO Not Given DAILY [facility] Senna/Docusate Sodium 1 tablet 04/09/19 18:00 04/12/19 06:24 Senokot-S, Elizabeth-Colace PO 1 tablet BID [facility] Administration Tuberculin PPD 5 tu 04/17/19 10:00 Tubersol, Aplisol, Ppd ID 04/17/19 10:01 X1 ONE Problem List (Last Updated 04/07/19 @ 12:01 by Jose Owens MD) Encephalopathy (Acute) Hypertension (Chronic) Aortic stenosis (Chronic) Vital Signs Temp Pulse Resp BP Pulse Ox 98.3 F 66 20 H 141/77 H 96 04/11/19 15:13 04/12/19 06:24 04/11/19 15:13 04/12/19 06:24 04/11/19 15:13 Oxygen Delivery Method Room Air Weight: 77.8 kg Body Mass Index (BMI) 34.6 Finger Stick Blood Glucose 140 Sodium 141 mmol/L (136-145) 04/10/19 07:43 Potassium 3.8 mmol/L (3.5-5.1) 04/10/19 07:43 Chloride 106 mmol/L (98-107) 04/10/19 07:43 Carbon Dioxide 29.0 mmol/L (21.0-32.0) 04/10/19 07:43 Anion Gap 6 (5-15) 04/10/19 07:43 BUN 18 mg/dL (7-18) 04/10/19 07:43 Creatinine 0.73 mg/dL (0.55-1.02) 04/10/19 07:43 Est GFR (MDRD) Af Amer 100 mL/min (>60) 04/10/19 07:43 Est GFR (MDRD) Non-Af 83 mL/min (>60) 04/10/19 07:43 BUN/Creatinine Ratio 24.7 RATIO (10-20) H 04/10/19 07:43 Glucose 87 mg/dL (74-106) 04/10/19 07:43 Assessment/Plan: 1) Pain APAP for pain 1-10. Continue to monitor prn medication use, daily pain scores. 2) HTN Amlodipine, metoprolol. Continue to monitor BP/HR. 3) DVT PPx Enoxaparin. Continue to monitor s/s bleeding/clot. 4) Nutrition D, FA, Mg, B/C. Continue to monitor clinically. Psychotropic Medications: None Unnecessary Medications: None Bowel Regimen: 5) Senna/s, PEG, prn bisacodyl. Continue to monitor prn medication use, for constipation/diarrhea. Date of Note:: 04/12/19 - Provider Comments Provider responsibility: Provider responsible to enter orders to implement recommendations
[2019-04-12 16:00] VITALS: BP 117/68; PULSE 70; RESP 18; TEMP 37.1; O2SAT 96
[2019-04-12 16:35] VITALS: BP 117/68; PULSE 84
[2019-04-12] MEDS: Nystatin Powder 15gm Bottle 1 APPLIC TOPICAL (20:46)
[2019-04-13] MEDS: Acetaminophen 500 MG Tablet 1000 MG PO ×3 (06:15→20:57)
[2019-04-13] MEDS: Vitamin B Comp W-C Capsule 1 CAP PO (06:16)
[2019-04-13 06:17] VITALS: BP 132/90; PULSE 64
[2019-04-13] MEDS: Enoxaparin 40 MG/0.4 ML Syringe SC (06:17)
[2019-04-13] MEDS: Folic Acid 1 MG Tablet PO (06:17)
[2019-04-13] MEDS: amLODIPine 2.5 MG Tablet PO (06:17)
[2019-04-13] MEDS: Magnesium Oxide 400 MG Tablet 200 MG PO (06:17)
[2019-04-13] MEDS: Metoprolol(XL)Succ 50 MG Tablet PO ×2 (06:17→16:35)
[2019-04-13] MEDS: Nystatin Powder 15gm Bottle 1 APPLIC TOPICAL ×2 (06:19→21:01)
[2019-04-13 16:00] VITALS: BP 125/66; PULSE 75; RESP 20; TEMP 36.8; O2SAT 92
[2019-04-13 16:35] VITALS: PULSE 72
[2019-04-13] MEDS: Senna/Docusate Sodium 1 Tablet PO (16:35)
[2019-04-14 06:33] VITALS: BP 133/78; PULSE 63
[2019-04-14] MEDS: Senna/Docusate Sodium 1 Tablet PO ×2 (06:33→16:34)
[2019-04-14] MEDS: amLODIPine 2.5 MG Tablet PO (06:33)
[2019-04-14] MEDS: Enoxaparin 40 MG/0.4 ML Syringe SC (06:33)
[2019-04-14] MEDS: Vitamin B Comp W-C Capsule 1 CAP PO (06:33)
[2019-04-14] MEDS: Metoprolol(XL)Succ 50 MG Tablet PO ×2 (06:33→16:34)
[2019-04-14] MEDS: Magnesium Oxide 400 MG Tablet 200 MG PO (06:34)
[2019-04-14] MEDS: Folic Acid 1 MG Tablet PO (06:34)
[2019-04-14] MEDS: Nystatin Powder 15gm Bottle 1 APPLIC TOPICAL ×2 (06:42→20:14)
[2019-04-14] MEDS: Acetaminophen 500 MG Tablet 1000 MG PO ×2 (11:06→20:13)
[2019-04-14 16:34] VITALS: PULSE 70
--- NOTE | 2019-04-14 17:10 | CASEMGMT ---
Social Work IDT met with patient, two sisters and brother for care plan meeting. Discussed patient's progress in therapy. ST is to eval today for trouble with focusing and concentration. Pt is walking 50 ft with FWW CGA, min to mod assist for bed mobility, min assist for LE ADLS and toileting tasks, SBA for UE ADLS, CGA for transfers. Pt is on a cardiac diet. Family concerned with pt getting enough therapy and building strength and endurance. Encouraged pt to complete exercises in room outside of therapy, but reassured pt is motivated and working hard in therapy, and pt needs rest as well. Pt tearful with loss of independence and not bouncing back. Provided emotional and verbal support. Siblings very supportive and advocating for pt. The plan is for pt to return home living with sister. Explained insurance with [employer] 04/13, and continued stay is not guaranteed. Will continue to follow. Eryn Kennedy, RIGGING FOREMAN FAGOT MAKER
[2019-04-14 17:13] VITALS: BP 132/75; PULSE 70; RESP 18; TEMP 36.9; O2SAT 95
[2019-04-15] MEDS: Polyethylene Glycol 3350 17 GM PACKET PO (06:18)
[2019-04-15 06:19] VITALS: BP 149/80; PULSE 60
[2019-04-15] MEDS: Vitamin B Comp W-C Capsule 1 CAP PO (06:19)
[2019-04-15] MEDS: amLODIPine 2.5 MG Tablet PO (06:19)
[2019-04-15] MEDS: Magnesium Oxide 400 MG Tablet 200 MG PO (06:19)
[2019-04-15] MEDS: Senna/Docusate Sodium 1 Tablet PO ×2 (06:19→16:46)
[2019-04-15] MEDS: Folic Acid 1 MG Tablet PO (06:19)
[2019-04-15] MEDS: Metoprolol(XL)Succ 50 MG Tablet PO ×2 (06:19→16:46)
[2019-04-15] MEDS: Nystatin Powder 15gm Bottle 1 APPLIC TOPICAL ×2 (06:20→22:26)
[2019-04-15] MEDS: Enoxaparin 40 MG/0.4 ML Syringe SC (06:21)
--- NOTE | 2019-04-15 10:52 | MDS.RN ---
Pain interview for lior 04/16/19 completed.
[2019-04-15] MEDS: Acetaminophen 500 MG Tablet 1000 MG PO ×2 (11:12→22:24)
--- NOTE | 2019-04-15 14:31 | CASEMGMT ---
Social Work Met with patient to complete MDS assessment. Pt was tearful and reported to depressive symptoms. Pt expressed having thoughts of being better off . Explored those feelings further at length - completed [place] Suicide Assessment. Pt expressed she has been feeling this way about the last three weeks here and there as she is really discouraged with medical conditions, loss of independence, feeling like a burden on her family, and blaming herself. Pt stated she has family to live for, but that's about it, and expressed living for them was not that important to her. She reiterated she would be better off for her sake and her family's. Pt expressed she does not like to talk about her feelings, and she continued to deny medications to assist with mood/anxiety. She reports she has trouble sleeping at night because her mind doesn't shut off to let her fall asleep. Pt was agreeable to the physician ordering Melatonin to assist - nursing aware. Discussed pt's strengths, the normalcy of her feelings. Pt does not have any methods or plans in place - has not thought about it beyond her medical conditions being very debilitating and hard to live with much longer. Pt is still wanting to keep working with therapy to help regain strength and endurance and hope to return home. Pt mentioned she was open to AL at [place] if she cannot return home. Pt does not have any active suicidal ideations, has forward thinking, and goals to work toward. SW to continue to follow to continue to provide emotional support and safe discharge planning. Eryn Kennedy, CARMEN RIBERAW
[2019-04-15 16:00] VITALS: BP 108/73; PULSE 63; RESP 18; TEMP 37; O2SAT 92
[2019-04-15 16:46] VITALS: PULSE 63
[2019-04-15] MEDS: MELATONIN 3 MG TABLET PO (22:25)
[2019-04-16] MEDS: Vitamin B Comp W-C Capsule 1 CAP PO (06:59)
[2019-04-16] MEDS: Enoxaparin 40 MG/0.4 ML Syringe SC (07:00)
[2019-04-16] MEDS: Magnesium Oxide 400 MG Tablet 200 MG PO (07:00)
[2019-04-16] MEDS: Folic Acid 1 MG Tablet PO (07:00)
[2019-04-16 07:02] VITALS: BP 121/59; PULSE 60
[2019-04-16] MEDS: Nystatin Powder 15gm Bottle 1 APPLIC TOPICAL ×2 (07:02→21:38)
[2019-04-16] MEDS: amLODIPine 2.5 MG Tablet PO (07:02)
[2019-04-16] MEDS: Metoprolol(XL)Succ 50 MG Tablet PO ×2 (07:02→17:00)
[2019-04-16] MEDS: Acetaminophen 500 MG Tablet 1000 MG PO ×3 (09:24→21:37)
[2019-04-16 14:03] VITALS: PULSE 68; RESP 18
[2019-04-16 16:00] VITALS: BP 116/79; PULSE 75; RESP 20; TEMP 36.8; O2SAT 93
[2019-04-16 17:00] VITALS: PULSE 75
[2019-04-16] MEDS: Senna/Docusate Sodium 1 Tablet PO (17:00)
--- NOTE | 2019-04-16 17:09 | NURSING ---
pt c/o difficulty w/RT eye focusing when looking to RT side. did stated that she was to follow up with community engagement specialist in February but cancelled d/t weather conditions. She was following up d/t retinal issues. will update Dr Snowden.
[2019-04-16] MEDS: MELATONIN 3 MG TABLET PO (21:37)
[2019-04-17] MEDS: Enoxaparin 40 MG/0.4 ML Syringe SC (06:04)
[2019-04-17] MEDS: Vitamin B Comp W-C Capsule 1 CAP PO (06:05)
[2019-04-17] MEDS: Nystatin Powder 15gm Bottle 1 APPLIC TOPICAL ×2 (06:05→21:41)
[2019-04-17] MEDS: Folic Acid 1 MG Tablet PO (06:05)
[2019-04-17] MEDS: Magnesium Oxide 400 MG Tablet 200 MG PO (06:05)
[2019-04-17] MEDS: amLODIPine 2.5 MG Tablet PO (06:05)
[2019-04-17] MEDS: Senna/Docusate Sodium 1 Tablet PO (06:05)
[2019-04-17 08:42] VITALS: PULSE 54
[2019-04-17] MEDS: Acetaminophen 500 MG Tablet 1000 MG PO ×2 (09:51→17:30)
[2019-04-17] MEDS: Tuberculin,Purif.prot.deriv. 50 TU/ML Vial 5 ML ID (10:53)
[2019-04-17 11:04] LABS: Absolute Lymphocyte Count 1.21 X10^3/uL (0.83-4.51); Absolute Neutrophil Count 4.7 X10^3/uL (2.0-7.7); Basophil# 0.05 X10^3/uL; Basophil% 0.8 % (0-1); Eosinophil# 0.16 X10^3/uL; Eosinophils% 2.4 % (0-5); Hematocrit 41.2 % (37-47); Lymphocyte # 1.21 X10^3/ul (4.0); Lymphocyte % 18.4 % (19-41); Mean Corp Hgb Conc 31.6 g/dL (32-36); Mean Corpuscular Hgb 29.4 pg (27.0-32.0); Mean Corpuscular Volume 93.2 fL (81-99); Monocyte# 0.48 X10^3/uL; Monocyte% 7.3 % (0-10); NRBC Flagged by Analyzer 0 % (0-5); Neutrophil # 4.65 X10^3/uL (2.7-7.7); Neutrophil % 70.8 % (47-70); Platelet Count 267 K/mm3 (150-450); RBC Distribution Width CV 16.2 % (11.6-14.6); RBC Distribution Width SD 55.8 fl (35.1-43.9); Red Blood Count 4.42 M/mm3 (4.2-5.4); White Blood Count 6.6 K/mm3 (4.4-11.0)
[2019-04-17 11:19] LABS: Anion Gap 11 (5-15); BUN 24 mg/dL (7-18); Calcium,Total 9.4 mg/dL (8.5-10.1); Chloride 104 mmol/L (98-107); Creatinine, Serum 0.96 mg/dL (0.55-1.02); EST Glomerular Filtration Rate 60 mL/min (>60); Est Glom Filt Rate - Afr Amer 73 mL/min (>60); Glucose 115 mg/dL (74-106); Potassium 4.2 mmol/L (3.5-5.1); Sodium Level 142 mmol/L (136-145)
[2019-04-17 16:00] VITALS: BP 100/77; PULSE 76; RESP 18; TEMP 36.8; O2SAT 93
[2019-04-17 17:27] VITALS: PULSE 76
[2019-04-17] MEDS: Metoprolol(XL)Succ 50 MG Tablet PO (17:27)
[2019-04-17] MEDS: MELATONIN 3 MG TABLET PO (21:40)
[2019-04-18] MEDS: Acetaminophen 500 MG Tablet 1000 MG PO ×3 (03:23→16:45)
[2019-04-18 06:13] VITALS: BP 157/91; PULSE 60
[2019-04-18] MEDS: Enoxaparin 40 MG/0.4 ML Syringe SC (06:13)
[2019-04-18] MEDS: Magnesium Oxide 400 MG Tablet 200 MG PO (06:13)
[2019-04-18] MEDS: Metoprolol(XL)Succ 50 MG Tablet PO ×2 (06:13→16:45)
[2019-04-18] MEDS: Senna/Docusate Sodium 1 Tablet PO ×2 (06:14→16:45)
[2019-04-18] MEDS: amLODIPine 2.5 MG Tablet PO (06:14)
[2019-04-18] MEDS: Vitamin B Comp W-C Capsule 1 CAP PO (06:14)
[2019-04-18] MEDS: Folic Acid 1 MG Tablet PO (06:15)
[2019-04-18] MEDS: Nystatin Powder 15gm Bottle 1 APPLIC TOPICAL ×2 (06:18→19:46)
[2019-04-18 16:00] VITALS: BP 105/69; PULSE 68; RESP 18; TEMP 36.6; O2SAT 91
[2019-04-18 16:45] VITALS: BP 134/74; PULSE 62
[2019-04-18] MEDS: MELATONIN 3 MG TABLET PO (21:25)
[2019-04-18] MEDS: Polyethylene Glycol 3350 17 GM PACKET PO (23:50)
[2019-04-19] MEDS: Acetaminophen 500 MG Tablet 1000 MG PO ×3 (01:00→22:37)
[2019-04-19] MEDS: Bisacodyl 5 MG Tablet 10 MG PO (01:00)
--- NOTE | 2019-04-19 01:52 | NURSING ---
Addendum entered by Renae Smith 04/19/19 02:37: Patient sleeping soundly in bed at this time. Addendum entered by Renae Smith 04/19/19 02:21: Patient with lots of loose stool mixed in with the fluid from the SSE. Patient states that she is feeling much better. Patient's pain in the abdomen has gone down considerably. Patient before SSE was belching considerably. After SSE and sitting on the bedside commode no belching noted. Patient now in bed resting, grateful to be feeling better. Original Note: Patient complaining of severe abdominal pain and bloating, pain going up through abdomen and to chest. Patient patient has been refusing daily miralax off and on since being on unit. Patient has been having medium loose stools on 04/17 and 04/18. Patient's BP 180/90 manually. Pulse is 74 and regular. O2 97 on room air. Per patient request patient has been given / dose of Miralax as well as prn dulcolax tablets. Dr. Snowden notified of this. Orders given for SSE. Soap suds enema given. Patient holding 1000 ml of Fluid. Patient tolerated procedure well.
[2019-04-19 06:46] VITALS: BP 158/90; PULSE 70
[2019-04-19] MEDS: Enoxaparin 40 MG/0.4 ML Syringe SC (06:46)
[2019-04-19] MEDS: Metoprolol(XL)Succ 50 MG Tablet PO ×2 (06:46→17:50)
[2019-04-19] MEDS: Folic Acid 1 MG Tablet PO (06:46)
[2019-04-19] MEDS: Vitamin B Comp W-C Capsule 1 CAP PO (06:46)
[2019-04-19] MEDS: Senna/Docusate Sodium 1 Tablet PO (06:47)
[2019-04-19] MEDS: Magnesium Oxide 400 MG Tablet 200 MG PO (06:47)
[2019-04-19] MEDS: amLODIPine 2.5 MG Tablet PO (06:47)
[2019-04-19] MEDS: Nystatin Powder 15gm Bottle 1 APPLIC TOPICAL ×2 (06:50→22:32)
[2019-04-19 16:00] VITALS: BP 126/77; PULSE 63; RESP 20; TEMP 36.4; O2SAT 97
[2019-04-19 17:50] VITALS: BP 126/77; PULSE 63
[2019-04-19] MEDS: MELATONIN 3 MG TABLET PO (22:41)
[2019-04-19 22:44] VITALS: PULSE 65; O2SAT 98
[2019-04-20] MEDS: Vitamin B Comp W-C Capsule 1 CAP PO (05:57)
[2019-04-20] MEDS: Polyethylene Glycol 3350 17 GM PACKET PO (05:57)
[2019-04-20] MEDS: Folic Acid 1 MG Tablet PO (05:57)
[2019-04-20] MEDS: Magnesium Oxide 400 MG Tablet 200 MG PO (05:58)
[2019-04-20] MEDS: amLODIPine 2.5 MG Tablet PO (06:00)
[2019-04-20] MEDS: Nystatin Powder 15gm Bottle 1 APPLIC TOPICAL ×2 (06:00→22:28)
[2019-04-20] MEDS: Enoxaparin 40 MG/0.4 ML Syringe SC (06:00)
[2019-04-20] MEDS: Senna/Docusate Sodium 1 Tablet PO (06:00)
--- NOTE | 2019-04-20 06:42 | MDS.RN ---
Information for the mds was obtained from review of the clinical record, interview of resident, staff, and direct observation of resident's care.
[2019-04-20 08:36] VITALS: PULSE 50
[2019-04-20] MEDS: Acetaminophen 500 MG Tablet 1000 MG PO ×2 (11:25→23:47)
--- NOTE | 2019-04-20 15:28 | CASEMGMT ---
Social Work Followed up with patient about mood and advanced directives. Pt did not express any further feelings, states, I'm good, and did not want to keep talking. Pt stated she did not have any decisions made on POA and LW. Offered continued assistance. Will continue to follow. Eryn Kennedy, CARTON LINER AUTO CLAIMS ADJUSTER
[2019-04-20 16:00] VITALS: BP 110/68; PULSE 76; RESP 18; TEMP 36.9; O2SAT 95
[2019-04-20 17:48] VITALS: PULSE 80
[2019-04-20] MEDS: Metoprolol(XL)Succ 50 MG Tablet PO (17:48)
[2019-04-20] MEDS: MELATONIN 3 MG TABLET PO (22:29)
[2019-04-21] MEDS: amLODIPine 2.5 MG Tablet PO (06:36)
[2019-04-21] MEDS: Magnesium Oxide 400 MG Tablet 200 MG PO (06:36)
[2019-04-21] MEDS: Folic Acid 1 MG Tablet PO (06:36)
[2019-04-21] MEDS: Polyethylene Glycol 3350 17 GM PACKET PO (06:36)
[2019-04-21] MEDS: Vitamin B Comp W-C Capsule 1 CAP PO (06:36)
[2019-04-21 06:37] VITALS: BP 127/80; PULSE 66
[2019-04-21] MEDS: Metoprolol(XL)Succ 50 MG Tablet PO ×2 (06:37→16:12)
[2019-04-21] MEDS: Senna/Docusate Sodium 1 Tablet PO (06:37)
[2019-04-21] MEDS: Enoxaparin 40 MG/0.4 ML Syringe SC (06:39)
[2019-04-21] MEDS: Nystatin Powder 15gm Bottle 1 APPLIC TOPICAL ×2 (06:40→20:32)
[2019-04-21 08:50] LABS: Mucous, Urine 0 SEEN /hpf (<or=2+); White Blood Cells 0 SEEN /hpf (0-5)
[2019-04-21 08:53] LABS: Color, Urine Yellow (Yellow); Glucose, Dipstick Normal (Normal); Ketone-Dipstick Negative (Negative); Leukocyte Esterase-Dipstick Negative /ul (Negative); Nitrite-Dipstick Negative (Negative); Occult Blood-Urine Negative /ul (Negative); Protein-Dipstick Negative (Negative); Urine Bilirubin Dipstick Negative (Negative); Urine Clarity Clear (Clear); Urine Urobilinogen Normal (Normal)
[2019-04-21 09:12] LABS: Bacteria RARE /hpf (None Seen); Red Blood Cells-Urine 0-5 SEEN /hpf (0-5); Squamous Epithelial Cells - UA 0-5 SEEN /hpf (5-10)
[2019-04-21] MEDS: Acetaminophen 500 MG Tablet 1000 MG PO ×2 (10:24→16:39)
[2019-04-21 16:00] VITALS: BP 125/75; PULSE 63; RESP 20; TEMP 36.7; O2SAT 95
[2019-04-21 16:12] VITALS: PULSE 63
[2019-04-22] MEDS: Acetaminophen 500 MG Tablet 1000 MG PO ×2 (00:11→14:52)
[2019-04-22] MEDS: Magnesium Oxide 400 MG Tablet 200 MG PO (06:50)
[2019-04-22] MEDS: Enoxaparin 40 MG/0.4 ML Syringe SC (06:50)
[2019-04-22 06:52] VITALS: BP 148/77; PULSE 66
[2019-04-22] MEDS: Metoprolol(XL)Succ 50 MG Tablet PO ×2 (06:52→16:59)
[2019-04-22] MEDS: amLODIPine 2.5 MG Tablet PO (06:52)
[2019-04-22] MEDS: Vitamin B Comp W-C Capsule 1 CAP PO (06:52)
[2019-04-22] MEDS: Folic Acid 1 MG Tablet PO (06:53)
[2019-04-22] MEDS: Senna/Docusate Sodium 1 Tablet PO ×2 (06:53→16:59)
[2019-04-22] MEDS: Nystatin Powder 15gm Bottle 1 APPLIC TOPICAL ×2 (06:54→19:41)
[2019-04-22 14:55] VITALS: PULSE 69; RESP 18; O2SAT 96
[2019-04-22 15:56] VITALS: BP 137/83; PULSE 60; RESP 18; TEMP 36.7; O2SAT 94
--- NOTE | 2019-04-22 16:31 | CASEMGMT ---
Social Work Pt's sister spoke with SW about DC options. Explained difference between skilled and nonskilled HHC, outpatient therapy. Sister inquired about AL vs SNF. Sister feels AL would be great for pt for ADL assistance and social aspect, but understands pt can make own decisions. Provided list of AL and pricing to sister and offered continued assistance. Eryn Kennedy, DIRECTOR SALES TRAINING FLOWER GRADER
[2019-04-22 16:59] VITALS: PULSE 60
[2019-04-23] MEDS: Acetaminophen 500 MG Tablet 1000 MG PO ×3 (02:33→18:34)
[2019-04-23] MEDS: Magnesium Oxide 400 MG Tablet 200 MG PO (06:35)
[2019-04-23] MEDS: Vitamin B Comp W-C Capsule 1 CAP PO (06:36)
[2019-04-23] MEDS: amLODIPine 2.5 MG Tablet PO (06:36)
[2019-04-23] MEDS: Senna/Docusate Sodium 1 Tablet PO ×2 (06:36→16:48)
[2019-04-23] MEDS: Folic Acid 1 MG Tablet PO (06:37)
[2019-04-23] MEDS: Enoxaparin 40 MG/0.4 ML Syringe SC (06:37)
[2019-04-23] MEDS: Polyethylene Glycol 3350 17 GM PACKET PO (06:38)
[2019-04-23 06:40] VITALS: BP 145/63; PULSE 62
[2019-04-23] MEDS: Metoprolol(XL)Succ 50 MG Tablet PO ×2 (06:40→16:49)
[2019-04-23] MEDS: Nystatin Powder 15gm Bottle 1 APPLIC TOPICAL ×2 (09:14→21:48)
[2019-04-23 16:00] VITALS: BP 116/69; PULSE 61; RESP 17; TEMP 36.9; O2SAT 97
--- NOTE | 2019-04-23 16:33 | CASEMGMT ---
Social Work Spoke with patient to inquire about DC plans as insurance update 04/26 and indicated a LCD will be issued. Pt became tearful and states she is struggling because she doesn't want to be there yet. Explained her sister's inquires and asked pt's position on those. Pt expressed she would consider AL but doesn't think she is there yet. She expressed she is struggling with making decisions, but reluctant to talk to SW and allow assistance. Explained assistance SW can provide and to notify if she would like AL placement. Pt states she will probably try to go home, and then decide AL or not. Provided ongoing emotional support and supportive listening. Will continue to follow. Eryn Kennedy, ENVIRONMENTAL CONSULTANT IP COUNSEL
[2019-04-23 16:49] VITALS: PULSE 63
[2019-04-24] MEDS: Acetaminophen 500 MG Tablet 1000 MG PO ×3 (01:35→20:42)
[2019-04-24 06:49] VITALS: BP 138/83; PULSE 61
[2019-04-24] MEDS: Metoprolol(XL)Succ 50 MG Tablet PO ×2 (06:49→17:14)
[2019-04-24] MEDS: Folic Acid 1 MG Tablet PO (06:50)
[2019-04-24] MEDS: amLODIPine 2.5 MG Tablet PO (06:50)
[2019-04-24] MEDS: Enoxaparin 40 MG/0.4 ML Syringe SC (06:50)
[2019-04-24] MEDS: Vitamin B Comp W-C Capsule 1 CAP PO (06:50)
[2019-04-24] MEDS: Senna/Docusate Sodium 1 Tablet PO ×2 (06:50→17:14)
[2019-04-24] MEDS: Polyethylene Glycol 3350 17 GM PACKET PO (06:51)
[2019-04-24] MEDS: Magnesium Oxide 400 MG Tablet 200 MG PO (06:51)
[2019-04-24] MEDS: Nystatin Powder 15gm Bottle 1 APPLIC TOPICAL ×2 (06:56→20:45)
[2019-04-24 07:33] LABS: Absolute Lymphocyte Count 1.39 X10^3/uL (0.83-4.51); Absolute Neutrophil Count 2.5 X10^3/uL (2.0-7.7); Basophil# 0.03 X10^3/uL; Basophil% 0.6 % (0-1); Eosinophil# 0.17 X10^3/uL; Eosinophils% 3.7 % (0-5); Hematocrit 36.8 % (37-47); Hemoglobin 11.7 g/dL (12.0-15.0); Lymphocyte # 1.39 X10^3/ul (4.0); Lymphocyte % 30.1 % (19-41); Mean Corp Hgb Conc 31.8 g/dL (32-36); Mean Corpuscular Hgb 29.9 pg (27.0-32.0); Mean Corpuscular Volume 94.1 fL (81-99); Mean Platelet Vol. 9.2 fl (6.2-12.0); Monocyte# 0.49 X10^3/uL; Monocyte% 10.6 % (0-10); NRBC Flagged by Analyzer 0 % (0-5); Neutrophil # 2.52 X10^3/uL (2.7-7.7); Neutrophil % 54.6 % (47-70); Platelet Count 216 K/mm3 (150-450); RBC Distribution Width CV 16.3 % (11.6-14.6); RBC Distribution Width SD 56.2 fl (35.1-43.9); Red Blood Count 3.91 M/mm3 (4.2-5.4); White Blood Count 4.6 K/mm3 (4.4-11.0)
[2019-04-24 07:47] LABS: Anion Gap 4 (5-15); BUN 23 mg/dL (7-18); BUN/Creat Ratio 30.7 RATIO (10-20); Calcium,Total 8.9 mg/dL (8.5-10.1); Chloride 109 mmol/L (98-107); Creatinine, Serum 0.75 mg/dL (0.55-1.02); EST Glomerular Filtration Rate 81 mL/min (>60); Est Glom Filt Rate - Afr Amer 98 mL/min (>60); Estimated Creatinine Clearance 61.54 ml/min; Glucose 87 mg/dL (74-106); Sodium Level 140 mmol/L (136-145)
[2019-04-24 10:00] VITALS: PULSE 70; RESP 16
[2019-04-24 15:18] VITALS: BP 112/87; PULSE 75; RESP 16; TEMP 36.8; O2SAT 94
[2019-04-24 17:14] VITALS: BP 112/87; PULSE 75
[2019-04-25] MEDS: Polyethylene Glycol 3350 17 GM PACKET PO (06:01)
[2019-04-25] MEDS: Enoxaparin 40 MG/0.4 ML Syringe SC (06:01)
[2019-04-25 06:02] VITALS: BP 138/78; PULSE 66
[2019-04-25] MEDS: Magnesium Oxide 400 MG Tablet 200 MG PO (06:02)
[2019-04-25] MEDS: Senna/Docusate Sodium 1 Tablet PO ×2 (06:02→17:48)
[2019-04-25] MEDS: Vitamin B Comp W-C Capsule 1 CAP PO (06:02)
[2019-04-25] MEDS: amLODIPine 2.5 MG Tablet PO (06:02)
[2019-04-25] MEDS: Folic Acid 1 MG Tablet PO (06:02)
[2019-04-25] MEDS: Metoprolol(XL)Succ 50 MG Tablet PO ×2 (06:02→17:48)
[2019-04-25] MEDS: Nystatin Powder 15gm Bottle 1 APPLIC TOPICAL ×2 (06:03→21:06)
[2019-04-25] MEDS: Acetaminophen 500 MG Tablet 1000 MG PO ×2 (11:45→21:11)
[2019-04-25 15:43] VITALS: BP 102/71; PULSE 62; RESP 14; TEMP 36.6; O2SAT 96
[2019-04-25 17:48] VITALS: BP 102/71; PULSE 62
[2019-04-26 06:03] VITALS: BP 126/62; PULSE 58
[2019-04-26] MEDS: Polyethylene Glycol 3350 17 GM PACKET PO (06:04)
[2019-04-26 06:07] VITALS: BP 126/62; PULSE 61
[2019-04-26] MEDS: Metoprolol(XL)Succ 50 MG Tablet PO ×2 (06:07→17:03)
[2019-04-26] MEDS: Magnesium Oxide 400 MG Tablet 200 MG PO (06:07)
[2019-04-26] MEDS: Folic Acid 1 MG Tablet PO (06:08)
[2019-04-26] MEDS: amLODIPine 2.5 MG Tablet PO (06:08)
[2019-04-26] MEDS: Vitamin B Comp W-C Capsule 1 CAP PO (06:08)
[2019-04-26] MEDS: Senna/Docusate Sodium 1 Tablet PO (06:08)
[2019-04-26] MEDS: Enoxaparin 40 MG/0.4 ML Syringe SC (06:11)
[2019-04-26] MEDS: Nystatin Powder 15gm Bottle 1 APPLIC TOPICAL ×2 (06:12→19:54)
[2019-04-26] MEDS: Acetaminophen 500 MG Tablet 1000 MG PO ×3 (09:26→21:37)
--- NOTE | 2019-04-26 14:35 | RAD_ITS ---
STUDY: X-RAY - ABDOMEN/PELVIS REASON FOR EXAM: Female, 73 years old. Abdomen pain, constipation TECHNIQUE: Single AP view of the abdomen / pelvis. COMPARISON: Comparison is made with prior study dated November 08, 2015. FINDINGS: Normal visualized lung bases. There is an unremarkable bowel gas pattern. There is no demonstrated free abdominal air. The visualized liver, spleen and kidneys are grossly normal in size and morphology. Normal soft tissue structures. There are diffuse degenerative changes of the visualized lumbar spine. RAD/Abdomen Single View IMPRESSION: The gas pattern is unremarkable. Electronically Signed: Bebo Oseguera, at 15:03 EST , Service support ,
--- NOTE | 2019-04-26 14:38 | NURSING ---
Addendum entered by Aimee Ortega 04/26/19 16:29: KUB negative, pt now running low grade temp 99, face flushed, pt tearful. st cathed UA sent to lab per Dr Snowden order. Original Note: pt c/o abd discomfort may be gas pains but it hasnt let up today like it does at home. Dr Snowden updated, new order for KUB.
[2019-04-26 16:00] VITALS: BP 160/98; PULSE 58; RESP 20; TEMP 37.2; O2SAT 95
[2019-04-26 16:26] LABS: Bacteria 0 SEEN /hpf (None Seen); Mucous, Urine 0 SEEN /hpf (<or=2+); Red Blood Cells-Urine 0 SEEN /hpf (0-5); White Blood Cells 0 SEEN /hpf (0-5)
[2019-04-26 16:32] LABS: Color, Urine Yellow (Yellow); Glucose, Dipstick Normal (Normal); Ketone-Dipstick Negative (Negative); Leukocyte Esterase-Dipstick Negative /ul (Negative); Nitrite-Dipstick Negative (Negative); Occult Blood-Urine Negative /ul (Negative); Protein-Dipstick Negative (Negative); Specific Gravity, Urine 1.015 (1.002-1.030); Urine Bilirubin Dipstick Negative (Negative); Urine Clarity Clear (Clear); Urine Urobilinogen Normal (Normal)
--- NOTE | 2019-04-26 16:37 | CASEMGMT ---
Social Work Spoke with patient about insurance issuing LCD 04/28. Pt is tearful about decision and requesting SW to contact her sister. Explained appeal rights. Pt indicated she appealed before and lost, so doesn't feel it is worth it to appeal again. Spoke with sister, Anny, and explained above whom also agreed not to appeal. Explained pt agreeable to reorder [facility] and no DME needs. Referral made to [facility] PT/OT/SN/SW Plan: [place] home 04/29 with [facility] PT/OT/SN/SW Eryn Kennedy, ASBESTOS ABATEMENT TECHNICIAN SOLAR PHOTOVOLTAIC ELECTRICIAN
[2019-04-26 16:41] LABS: Squamous Epithelial Cells - UA 0-5 SEEN /hpf (5-10)
[2019-04-26 17:03] VITALS: BP 157/75; PULSE 78
--- NOTE | 2019-04-26 18:40 | NURSING ---
Addendum entered by Aimee Ortega 04/26/19 18:57: pt tearful, having emesis of undigested food from supper. Pt was told that she is going home in 2 days and very anxious about doing for herself. Will continue to monitor. Pt passsing gas, no BM yet. pt sitting on toilet. Original Note: soap thi enema given
--- NOTE | 2019-04-26 20:01 | NURSING ---
Patient still c/o pain in abdomen. Dr. Snowden notified. Orders given for CT Abdomen/Pelvis with contrast.
--- NOTE | 2019-04-26 20:13 | PCM.DC ---
- Discharge Diagnoses Current Active Problems: Current Active and Chronic Problems (Last Updated 04/07/19 @ 12:01 by Jose Owens MD) Encephalopathy (Acute) Hypertension (Chronic) Aortic stenosis (Chronic) You will use the following diet at home:: No restrictions, Regular Your food should be the consistency of: Regular Your liquids should be the consistency of: Regular/Thin Discharge Activity: Return to Normal Activity, May Shower, Use Walker Weight Bearing Status: Weight bearing as tolerated Call your doctor if you observe: Fever of 101 or Higher, Inability to urinate, Inability to have a bowel movement, Shortness of breath, Chest pain, Uncontrolled pain Allergies/Adverse Reactions: Allergies hydrochlorothiazide Allergy (Intermediate, Verified 04/06/19 12:00) low sodium atorvastatin [From Lipitor] Allergy (Verified 04/06/19 12:00) Unknown doxazosin [From Cardura] Allergy (Verified 04/08/19 19:14) Other VASOVAGAL lisinopril Allergy (Verified 04/06/19 12:00) Angioedema amlodipine [From Norvasc] Adverse Reaction (Severe, Verified 04/06/19 12:00) Freezes up limbs nifedipine [From Nifedical XL] Adverse Reaction (Severe, Verified 04/06/19 12:00) Freezes up limbs alendronate sodium [From Fosamax] Adverse Reaction (Intermediate, Verified 04/06/19 12:00) GI upset codeine Adverse Reaction (Verified 04/06/19 12:00) Unknown ibuprofen Adverse Reaction (Verified 04/06/19 12:00) Other HCTA Adverse Reaction (Intermediate, Uncoded 04/06/19 12:00) Low sodium Medications to take at Discharge Metoprolol(XL)Succ [Toprol Xl (Beta Berenice)] 50 mg PO BID #60 tab 08/27/17 Cholecalciferol (Vitamin D3) [Vitamin D3] 5,000 unit PO DAILY 04/03/19 Folic Acid 1 mg PO DAILY 04/03/19 Magnesium 250 mg PO DAILY 04/03/19 Vitamin B Complex [B Complex] 1 ea PO DAILY 04/03/19 Acetaminophen [Tylenol] 1,000 mg PO Q6H PRN PRN tablet 04/26/19 Amlodipine [Norvasc] 2.5 mg PO DAILY #30 tab 04/26/19 Melatonin 3 mg PO QHS tablet 04/26/19 Mineral Oil/Petrolatum,White [Eucerin] 1 applic TOPICAL QHS jar 04/26/19 Nystatin Powder [Mycostatin Powder] 1 applic TOPICAL 0600,2200 bottle 04/26/19 The following prescriptions were given: Amlodipine [Norvasc] 2.5 mg PO DAILY #30 tab Transmission Status: Pending to [facility] Primary Care Physician: Michael Snowden Chi, MD [Primary Care Provider] - Please follow up with your Primary Care Physician in: 1 week. Test Results: Test results from this visit will be discussed in further detail at your follow-up appointment, if applicable. Please Follow Up With: Michael Snowden Chi, MD When: 1-2 weeks after D/C Please Follow Up With: Bret Daniels MD When: 1-2 weeks Proposed Discharge Date: 04/29/19
--- NOTE | 2019-04-26 20:15 | DS.PCM_ITS ---
Discharge Date and Diagnosis - Problem List Patient Problems: Active and Suspected Problems (Last Updated 04/07/19 @ 12:01 by Jose Owens MD) Encephalopathy (Acute) Date of Admission: 04/09/19 Date of Discharge: 04/29/19 - Primary Discharge Diagnosis Active and Suspected Problems (Last Updated 04/07/19 @ 12:01 by Jose Owens MD) Encephalopathy (Acute) - Secondary Discharge Diagnosis Chronic Problems (Last Updated 04/07/19 @ 12:01 by Jose Owens MD) Hypertension (Chronic) Aortic stenosis (Chronic) Sarcoidosis (Chronic) Supraventricular tachycardia (Chronic) Nonrheumatic aortic (valve) stenosis (Chronic) Essential (primary) hypertension (Chronic) Subsequent non-ST elevation (NSTEMI) myocardial infarction (Chronic 02/16/15) 02/16/15 Hospital Course and Treatment Imaging Results: 04/26/19 14:35 Abdomen Single View [RAD] Stat Operations: None Procedures: None Summary of Care Provided: The patient is a 73 year old Female with below past medical history hospitalized for syncope, secondary to hypotension, acute kidney injury, admitted to TCU with debility, here for rehabilitation, strengthening, prior to discharge home alone. 04/26/2019 After being told of her discharge date, resident developed severe lo wer abdominal pain, KUB unremarkable, Soap Suds enema given without relief; Bladder scan showed urinary retention, resident straight cathed to empty, UA negative, no relief; CT scan of abdomen/pelvis ordered for AM. Resident shows signs of somatization disorder, consider low dose Citalopram for treatment. Discharge home alone, [facility] for PT/OT/SN/SW. Resident requires Home Health due to syncope. Patient Problems: Active and Suspected Problems (Last Updated 04/07/19 @ 12:01 by Jose Owens MD) Encephalopathy (Acute) - Physical Exam Vitals/I&O's: Vital Signs Temp Pulse Resp BP Pulse Ox 99.0 F 78 20 H 157/75 H 95 04/26/19 16:00 04/26/19 17:03 04/26/19 16:00 04/26/19 17:03 04/26/19 16:00 Oxygen Flow Rate (L/min) 2 Oxygen Delivery Method Room Air Weight: 77.8 kg Body Mass Index (BMI) 34.6 Finger Stick Blood Glucose 140 Intake and Output for Last 24 Hours 04/24/19 04/25/19 04/26/19 23:59 23:59 23:59 Intake Total 660 / 660 480 / 480 480 / 480 Output Total 450 / 450 Balance 660 / 660 480 / 480 30 / 30 Laboratory Results 04/26/19 16:15: Urine Color Yellow, Urine Clarity Clear, Urine pH 6.0, Ur Specific [place] 1.015, Urine Protein Negative, Urine Glucose (UA) Normal, Urine Ketones Negative, Urine Occult Blood Negative, Urine Nitrite Negative, Urine Bilirubin Negative, Urine Urobilinogen Normal, Ur Leukocyte Esterase Negative, Urine RBC 0 SEEN, Urine WBC 0 SEEN, Ur Squamous Epith Cells 0-5 SEEN, Urine Bacteria 0 SEEN, Urine Mucus 0 SEEN Current Medications Acetaminophen (Tylenol) 1,000 mg PO Q6H PRN PRN PRN Reason: Pain Score 1-10/10 Last Admin: 04/26/19 15:36 Dose: 1,000 mg Documented by: Amlodipine Besylate (Norvasc) 2.5 mg PO DAILY [facility] Last Admin: 04/26/19 06:08 Dose: 2.5 mg Documented by: Bisacodyl (Dulcolax) 10 mg PO DAILY PRN PRN Reason: Constipation Last Admin: 04/19/19 01:00 Dose: 10 mg Documented by: Cholecalciferol (Vitamin D) 5,000 unit PO DAILY [facility] Last Admin: 04/26/19 06:08 Dose: 5,000 unit Documented by: Enoxaparin Sodium (Lovenox) 40 mg SC DAILY@0600 [facility] Last Admin: 04/26/19 06:11 Dose: 40 mg Documented by: Folic Acid (Folic Acid) 1 mg PO DAILY [facility] Last Admin: 04/26/19 06:08 Dose: 1 mg Documented by: Magnesium Oxide (Mag-Ox 400) 200 mg PO DAILY [facility] Last Admin: 04/26/19 06:07 Dose: 200 mg Documented by: Melatonin (Melatonin) 3 mg PO QHS [facility] Last Admin: 04/26/19 19:53 Dose: Not Given Documented by: Metoprolol Succinate (Toprol Xl (Beta Berenice)) 50 mg PO BID [facility] Last Admin: 04/26/19 17:03 Dose: 50 mg Documented by: Multi-Ingredient Cream (Eucerin) 1 applic TOPICAL QHS [facility]; Protocol Last Admin: 04/26/19 19:53 Dose: 1 applicatio Documented by: Multivitamins (Allbee W/C Caplet, Thera B Comp/C) 1 capsule PO DAILY [facility] Last Admin: 04/26/19 06:08 Dose: 1 capsule Documented by: Nystatin (Mycostatin Powder) 1 applic TOPICAL 0600,2200 [facility]; Protocol Last Admin: 04/26/19 19:54 Dose: 1 applicatio Documented by: Polyethylene Glycol (Miralax) 17 gm PO DAILY [facility] Last Admin: 04/26/19 06:04 Dose: 17 gm Documented by: Senna/Docusate Sodium (Senokot-S, Elizabeth-Colace) 1 tablet PO BID [facility] Last Admin: 04/26/19 13:48 Dose: Not Given Documented by: Simethicone (Mylicon) 80 mg PO TIDPC PRN PRN Reason: gas pain Discharge Diet: No Restrictions Discharge Activity: Return to Normal Activity, May Shower, Use Walker Weight Bearing Status: Weight bearing as tolerated Call your doctor if you observe: Fever of 101 or Higher, Inability to urinate, Inability to have a bowel movement, Shortness of breath, Chest pain, Uncontrolled pain Home Medications: Medications to take at Discharge Metoprolol(XL)Succ [Toprol Xl (Beta Berenice)] 50 mg PO BID #60 tab 08/27/17 Cholecalciferol (Vitamin D3) [Vitamin D3] 5,000 unit PO DAILY 04/03/19 Folic Acid 1 mg PO DAILY 04/03/19 Magnesium 250 mg PO DAILY 04/03/19 Vitamin B Complex [B Complex] 1 ea PO DAILY 04/03/19 Acetaminophen [Tylenol] 1,000 mg PO Q6H PRN PRN tablet 04/26/19 Amlodipine [Norvasc] 2.5 mg PO DAILY #30 tab 04/26/19 Melatonin 3 mg PO QHS tablet 04/26/19 Mineral Oil/Petrolatum,White [Eucerin] 1 applic TOPICAL QHS jar 04/26/19 Nystatin Powder [Mycostatin Powder] 1 applic TOPICAL 0600,2200 bottle 04/26/19 Following Prescrptions Were Given to Patient: Amlodipine [Norvasc] 2.5 mg PO DAILY #30 tab Transmission Status: Pending to [facility] Primary Care Physician: Michael Snowden Chi, MD [Primary Care Provider] - Please follow up with your Primary Care Physician in: 1 week. Please Follow Up With: Michael Snowden Chi, MD When: 1-2 weeks after D/C Please Follow Up With: Bret Daniels MD When: 1-2 weeks Disposition: Home with Home Health Minutes spent on discharge:: 35 Patient Condition:: Stable Medical Necessity - Tobacco Use Smoking Status: Never smoker Tobacco Use: Non-smoker Meaningful Use Info Meaningful Use Diagnoses (Choose all that apply): None applicable
[2019-04-27] MEDS: Enoxaparin 40 MG/0.4 ML Syringe SC (06:50)
[2019-04-27] MEDS: amLODIPine 2.5 MG Tablet PO (06:50)
[2019-04-27] MEDS: Vitamin B Comp W-C Capsule 1 CAP PO (06:50)
[2019-04-27 06:51] VITALS: BP 110/73; PULSE 66
[2019-04-27] MEDS: Magnesium Oxide 400 MG Tablet 200 MG PO (06:51)
[2019-04-27] MEDS: Folic Acid 1 MG Tablet PO (06:51)
[2019-04-27] MEDS: Metoprolol(XL)Succ 50 MG Tablet PO ×2 (06:51→18:06)
[2019-04-27] MEDS: Acetaminophen 500 MG Tablet 1000 MG PO ×3 (06:53→23:37)
[2019-04-27] MEDS: Nystatin Powder 15gm Bottle 1 APPLIC TOPICAL ×2 (07:16→21:01)
--- NOTE | 2019-04-27 12:07 | NURSING ---
R' IN CHAIR ATTEMPTING TO EAT LUNCH. RATES PAIN 2/10 IN ABDOMEN, ACHING PAIN. STATES SHE WAS ABLE TO EAT SMALL AMOUNT OF BREAKFAST BUT HAD DIARRHEA. IFFERED PRN MYLICON BUT REFUSED AT THIS TIME. WILL MONITOR.
--- NOTE | 2019-04-27 15:12 | NURSING ---
[employer] faxed approval for CT of ABDomen/pelvis w/out contrast.
[2019-04-27 16:00] VITALS: BP 117/80; PULSE 61; RESP 18; TEMP 36.8; O2SAT 97
[2019-04-27 18:06] VITALS: BP 117/80; PULSE 61
--- NOTE | 2019-04-27 19:31 | NURSING ---
Dr. Snowden aware of CT results and that patient has had no complaints of pain all day long. No new orders given
[2019-04-27 20:48] VITALS: PULSE 67; O2SAT 95
[2019-04-28 06:25] VITALS: BP 147/77; PULSE 56
[2019-04-28] MEDS: Metoprolol(XL)Succ 50 MG Tablet PO ×2 (06:25→17:48)
[2019-04-28] MEDS: Enoxaparin 40 MG/0.4 ML Syringe SC (06:26)
[2019-04-28] MEDS: amLODIPine 2.5 MG Tablet PO (06:26)
[2019-04-28] MEDS: Folic Acid 1 MG Tablet PO (06:26)
[2019-04-28] MEDS: Vitamin B Comp W-C Capsule 1 CAP PO (06:27)
[2019-04-28] MEDS: Magnesium Oxide 400 MG Tablet 200 MG PO (06:27)
[2019-04-28] MEDS: Nystatin Powder 15gm Bottle 1 APPLIC TOPICAL ×2 (06:29→21:00)
[2019-04-28] MEDS: Acetaminophen 500 MG Tablet 1000 MG PO ×2 (11:41→20:57)
--- NOTE | 2019-04-28 11:43 | NURSING ---
IV to R AC removed, tip intact. pt tolerated well. 2 x 2 secured with tape.
[2019-04-28 16:00] VITALS: BP 130/77; PULSE 61; RESP 18; TEMP 36.3; O2SAT 95
[2019-04-28 17:48] VITALS: BP 139/84; PULSE 64
[2019-04-29 06:19] VITALS: BP 135/79; PULSE 67
[2019-04-29] MEDS: Metoprolol(XL)Succ 50 MG Tablet PO (06:19)
[2019-04-29] MEDS: Folic Acid 1 MG Tablet PO (06:19)
[2019-04-29] MEDS: Vitamin B Comp W-C Capsule 1 CAP PO (06:19)
[2019-04-29] MEDS: Enoxaparin 40 MG/0.4 ML Syringe SC (06:19)
[2019-04-29] MEDS: Magnesium Oxide 400 MG Tablet 200 MG PO (06:19)
[2019-04-29] MEDS: amLODIPine 2.5 MG Tablet PO (06:19)
[2019-04-29] MEDS: Acetaminophen 500 MG Tablet 1000 MG PO ×2 (11:37→15:39)
[2019-04-29 15:23] VITALS: BP 135/86; PULSE 69; RESP 16; TEMP 36.5; O2SAT 96
--- NOTE | 2019-04-29 16:43 | CASEMGMT ---
Social Work Reviewed and agreed with social work hr internship documentation on this date. Eryn Kennedy, EQUITY DIRECTOR WATER COMMISSIONER
--- NOTE | 2019-04-30 10:15 | CASEMGMT ---
Social Work Reviewed and agreed with social work documentation on this date. Eryn Kennedy, AUTO RADIATOR MECH[employer]IC H[employer]ICE COMMUNITY LIAISON
== END 2019-04-29 15:45 | disposition home health service (06) | DRG 312 ==
PROVIDERS: Admitting Provider Family Medicine Geriatric Medicine; Family Provider Family Medicine Geriatric Medicine; PCP Family Medicine Geriatric Medicine; Referring Provider Family Medicine Geriatric Medicine; Visit Provider Family Medicine Geriatric Medicine
DX: R55 Syncope and collapse (principal); I47.1 Supraventricular tachycardia; G93.40 Encephalopathy, unspecified; I10 Essential (primary) hypertension; E55.9 Vitamin D deficiency, unspecified; D86.9 Sarcoidosis, unspecified; I25.2 Old myocardial infarction; G47.33 Obstructive sleep apnea (adult) (pediatric); M19.90 Unspecified osteoarthritis, unspecified site; E66.9 Obesity, unspecified; Z68.34 Body mass index [BMI] 34.0-34.9, adult; Z71.3 Dietary counseling and surveillance; R33.9 Retention of urine, unspecified
CPT/HCPCS: 36415; 74018; 80048; 81001; 85025; 87077; 87086; 87088; 87186; 92507; 92523; 97110; 97116; 97162; 97166; 97530; 97535; 97802

== ENCOUNTER → 2019-04-27 15:25 | Outpatient (CLI) | payer MEDICARE, SELFPAY ==
[2019-04-09 14:14] VITALS: BMI 34.6
--- NOTE | 2019-04-27 15:32 | CT_ITS ---
STUDY: CT ABDOMEN AND PELVIS WITH CONTRAST REASON FOR EXAM: Female, 73 years old. Left-sided pain RADIATION DOSAGE (If Supplied By Facility): CTDIvol = ( 12.42 ) mGy, DLP = ( 902.69 ) mGycm TECHNIQUE: Transaxial images were obtained from the dome of the diaphragm to the symphysis pubis with oral contrast. 100 ml of Isovue-300 contrast was administered. Sagittal and coronal images were reconstructed. Individualized dose optimization techniques were used for this CT. COMPARISON: 04/03/2019 FINDINGS: The visualized lung bases are clear. The visualized portions of the heart and pericardium are within normal limits. There are no calcified gallstones present. The liver is within normal limits. There are no suspicious hepatic lesions. The spleen is normal in size. The pancreas is within normal limits. The adrenal glands are within normal limits. There are no renal or ureteral stones. There is no hydronephrosis. There are no focal renal lesions. Normal visualized stomach. There is no bowel obstruction or inflammation. The appendix is not visualized, but there are no findings to suggest acute appendicitis. There is no bowel containing hernia. Again noted is a left inguinal hernia which contains fat and fluid. There is increased stranding in the hernia sac when compared with the prior exam. The aorta is normal in caliber. There is no abdominal or pelvic free air, free fluid, fluid collection or lymphadenopathy. There are no destructive osseous lesions. There are stable degenerative changes noted in the spine. There is a stable compression deformity of the L1 vertebral body. CT/Abdomen/Pelvis WITH Contrast IMPRESSION: Redemonstration of a left inguinal hernia which contains fat and fluid. Increased stranding within the hernia sac when compared with the prior exam. This may be due to fat necrosis. No bowel obstruction or inflammation. No bowel containing hernia. Electronically Signed: Christian Cooper, at 18:18 EST Tel , Service support ,
== END ==
PROVIDERS: PCP Family Medicine Geriatric Medicine; Referring Provider Family Medicine Geriatric Medicine; Visit Provider Family Medicine Geriatric Medicine
DX: K40.90 Unilateral inguinal hernia, without obstruction or gangrene, not specified as recurrent (principal)
CPT/HCPCS: 74177; Q9967

== ENCOUNTER → 2019-05-11 15:17 | Outpatient (CLI) | payer MEDICARE, SELFPAY ==
[2019-05-11 14:37] VITALS: BMI 35.3
[2019-05-11 17:34] LABS: BUN 26 mg/dL (7-18); BUN/Creat Ratio 24.5 RATIO (10-20); Calcium,Total 9.1 mg/dL (8.5-10.1); Chloride 109 mmol/L (98-107); Creatinine, Serum 1.06 mg/dL (0.55-1.02); EST Glomerular Filtration Rate 54 mL/min (>60); Est Glom Filt Rate - Afr Amer 65 mL/min (>60); Glucose 91 mg/dL (74-106); Sodium Level 142 mmol/L (136-145)
[2019-05-11 17:35] LABS: Anion Gap 4 (5-15)
== END ==
PROVIDERS: PCP Family Medicine Geriatric Medicine; Visit Provider Family Medicine Geriatric Medicine
DX: N17.9 Acute kidney failure, unspecified (principal)
CPT/HCPCS: 36415; 80048

== ENCOUNTER → 2019-09-15 13:36 | Outpatient (CLI) | payer MEDICARE, SELFPAY ==
[2019-05-18 14:11] VITALS: BMI 35.3
--- NOTE | 2019-09-15 14:57 | NEURO ---
NCS and/or EMG Patient Report Ordering Doctor: Michael Snowden Chi DATE OF SERVICE: 09/15/19 Lizette Price is a 73-year-old female presents for electrodiagnostic testing of the upper limbs. She reports numbness and tingling in both hands. Electrodiagnostic findings: Right median motor nerve demonstrates prolonged distal latency with normal amplitude and reduced conduction velocity. Normal right ulnar motor response. Normal median ulnar F waves on the right side. Prolonged median sensory latency at the wrist on the right side. Normal right ulnar and radial sensory responses. The patient refused testing in the left upper limb secondary to poor tolerance for the examination. Needle EMG was performed in the right upper limb. 1+ fibrillations were noted in the right first dorsal interosseous. Electrodiagnostic impression: This is an abnormal study in the right upper limb. 1. Electrodiagnostic findings demonstrate right-sided median mononeuropathy. This is consistent with a moderate to advanced right carpal tunnel syndrome. If there are any further questions, please do not hesitate to contact me.
== END ==
PROVIDERS: Family Provider Family Medicine Geriatric Medicine; PCP Family Medicine Geriatric Medicine; Referring Provider Family Medicine Geriatric Medicine; Visit Provider Family Medicine Geriatric Medicine
DX: R20.2 Paresthesia of skin (principal)
CPT/HCPCS: 95886; 95909

== ENCOUNTER → 2019-09-20 15:12 | Outpatient (CLI) | payer MEDICARE, SELFPAY ==
[2019-05-18 14:11] VITALS: BMI 35.3
[2019-09-20 17:26] LABS: Absolute Lymphocyte Count 1.03 X10^3/uL (0.83-4.51); Absolute Neutrophil Count 4.6 X10^3/uL (2.0-7.7); Basophil# 0.03 X10^3/uL; Basophil% 0.5 % (0-1); Eosinophil# 0.16 X10^3/uL; Eosinophils% 2.6 % (0-5); Hematocrit 41.1 % (37-47); Hemoglobin 12.7 g/dL (12.0-15.0); Lymphocyte # 1.03 X10^3/ul (4.0); Lymphocyte % 16.5 % (19-41); Mean Corp Hgb Conc 30.9 g/dL (32-36); Mean Corpuscular Hgb 30.8 pg (27.0-32.0); Mean Corpuscular Volume 99.8 fL (81-99); Mean Platelet Vol. 10.1 fl (6.2-12.0); Monocyte# 0.46 X10^3/uL; Monocyte% 7.3 % (0-10); NRBC Flagged by Analyzer 0 % (0-5); Neutrophil # 4.57 X10^3/uL (2.7-7.7); Neutrophil % 72.9 % (47-70); Platelet Count 228 K/mm3 (150-450); RBC Distribution Width CV 13.5 % (11.6-14.6); RBC Distribution Width SD 49.2 fl (35.1-43.9); Red Blood Count 4.12 M/mm3 (4.2-5.4); White Blood Count 6.3 K/mm3 (4.4-11.0)
[2019-09-20 17:51] LABS: Vitamin D,25 Hydroxy 73.2 ng/mL
[2019-09-20 18:03] LABS: ALB/GLOB Ratio 0.8 RATIO (0.9-2.4); AST(SGOT) 21 U/L (15-37); Alanine Aminotransfer ALT/SGPT 31 U/L (13-56); Albumin, Serum 3.5 g/dL (3.2-5.0); Alkaline Phosphatase 81 U/L (45-117); Anion Gap 9 (5-15); BUN 14 mg/dL (7-18); Chloride 104 mmol/L (98-107); Cholesterol 161 mg/dL (200); Creatinine, Serum 0.74 mg/dL (0.55-1.02); EST Glomerular Filtration Rate 82 mL/min (>60); Est Glom Filt Rate - Afr Amer 99 mL/min (>60); Globulin 4.2 g/dL (2.2-4.2); Glucose 81 mg/dL (74-106); High Density Lipoprotein 63 mg/dL; Potassium 3.8 mmol/L (3.5-5.1); Protein, Total 7.7 g/dL (6.4-8.2); Sodium Level 140 mmol/L (136-145); Thyroid Stim Hormone (TSH) 1.16 uIU/mL (0.358-3.74); Triglycerides 80 mg/dL; Very Low Density Lipoprotein 16 mg/dL (5-40)
== END ==
PROVIDERS: PCP Family Medicine Geriatric Medicine; Visit Provider Family Medicine Geriatric Medicine
DX: E78.5 Hyperlipidemia, unspecified (principal); I10 Essential (primary) hypertension; E55.9 Vitamin D deficiency, unspecified
CPT/HCPCS: 36415; 80053; 80061; 82306; 84443; 85025

== ENCOUNTER → 2019-10-13 12:24 | Outpatient (CLI) | payer MEDICARE, SELFPAY ==
[2019-05-18 14:11] VITALS: BMI 35.3
--- NOTE | 2019-10-13 13:48 | NEURO_ITS ---
NCS and/or EMG Patient Report Ordering Doctor: Michael Snowden Chi DATE OF SERVICE: 10/13/19 Lizette Price presents for electrodiagnostic testing. She has weakness in both legs, worse on the left side. She is requesting only the left side to be tested today. Electrodiagnostic findings: Left common peroneal nerve demonstrates normal distal latency with reduced amplitude and normal conduction velocity. Left tibial motor nerve demonstrates normal distal latency with reduced amplitude and normal conduction velocity. Normal peroneal and tibial F wave. H reflex normal bilaterally. Sensory responses are within normal limits. On needle EMG, all muscles tested in the left lower limb showed no evidence of denervation with normal motor unit action potentials. Electrodiagnostic impression: This is an abnormal study in the left lower limb. 1. Electrodiagnostic findings demonstrate axonal loss in the left common peron eal and tibial motor nerves. Would recommend correlation with right lower limb to evaluate for peripheral polyneuropathy. 2. No electrodiagnostic evidence is noted for lumbosacral radiculopathy.
== END ==
PROVIDERS: Family Provider Family Medicine Geriatric Medicine; PCP Family Medicine Geriatric Medicine; Referring Provider Family Medicine Geriatric Medicine; Visit Provider Family Medicine Geriatric Medicine
DX: R20.2 Paresthesia of skin (principal)
CPT/HCPCS: 95886; 95910

== ENCOUNTER 2019-11-22 12:00 | Outpatient (RCR) | payer MEDICARE, SELFPAY ==
[2019-05-18 14:11] VITALS: BMI 35.3
--- NOTE | 2019-05-20 17:04 | HP.OTEVAL_ITS ---
Patient's Visit Information LIZETTE DAVIES is a 73 year old F, referred to Occupational Therapy by Michael Snowden MD, with a diagnosis of Debility. Date of Evaluation: 05/20/19 Occupational Therapist: Cata Kern, OTR/L - Subjective Subjective: Lizette, 'Chaparrita', arrived to session with sister. She is s/p hospital stay on [facility] TCU for last month. She was admitted due to reaction to new cardiac related medication in which blood pressure dropped and had some ongoing sickness post reaction. She was discharged from TCU and was referred for further therapy at . She has significant past medical history of sarcoidosis between 7-8 inches of cervical spine. - ADLs Dressing: Overhead shirt Eating: Cut food Comments: sister helps with tx. Kitchen: Chop with knife, Peel fruits & vegetables, Open jars, Open bottle caps Household: Vacuum, Sweep/mop, Laundry Comments: Chaparrita noted she would like to increase her ability to complete tasks around her home for ADL/IADLs maintenance. 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 Limited ROM of B shoulders. - ROM Shoulder: flexion R 0-72, L 0-119; abd R 0-92, L 0-111 Elbow: WFL Forearm: WFL Wrist: WFL MP: WFL PIP: WFL DIP: WFL ROM Comments: AAROM shoulder flexion R 0-126, L 0-129 - Strength Geophysical Prospecting Surveyor: flexed R 32, L 35; ext R 25 , L32 Lateral Pinch: R 4, L 5 Tripod Pinch: R 4 , L 5 - Sensation Thumb: R 4.31, L 4.08 Index: R 4.31, L 4.17 Middle: R 3.84, L 4.74 Ring: R 4.74, L 4.56 Little: R 4.31, L 3.84 - Quick DASH-Disab of Arm,Shoulder& Hand Quick DASH Score: 40.9075 - Goals Goal:: Lizette to increaed B application systems engineer strength by 10 lbs to promote increased strength and endurance of B hands to promote increased graps for self-care tasks by d/c. Goal:: Lizette to increased B UE should flexion by 10-20 degrees to promote overhead reaching for simple meal prep and gathering of self-care items 4/5 trials 80% o fthe time by d/c. Goal:: Lizette to be (I) to complete use of adaptive techniques and compensatory strategies to promote increaed abiltiy to complete ADL/IALDs while maintaining joint integratoty by d/c. Goal:: Lizette to be mod I to complete simple meal prep tasks and laundry activities to promote increased strength and endurance to complete self-care tasks 4/5 trials 80% of the time by d/c. Goal:: Lizette to be (I) to complete daily HEP to promote strength and enduran ceof BUE needed for ADl/IALDs by d/c. - Rehabilitation General Assessment: Chaparrita completed OT evaluation on this date of 05/20/19. She was referred to occupational therapy for general debility s/p stay on [facility] due to reaction to new medication. She noted that she has been experiencing i ncreased debility in strength and endurance. Chaparrita would benefit from skill OT services to promote increased in (i) with self-care and ADl/IADLs, strength, endurance, and general training to promote returning to all meaningful activities by d/c. Rehabilitation Potential: Good - Anticipated Interventions Anticipated Interventions: A/AAROM/PROM, Strengthening, Modalities, Joint Protection/Energy Conservation, Fine Motor Coord/Andrea, ADL Training, Caregiver Training, Home Program - Visit Plan Frequency: 2x /Week Duration: 4 Weeks General Plan: Chaparrita to complete skilled OT services to promote increased strength, ROM, and endurance needed to return to PLOF and maximize (I) for ADL/IADLS by d/c. TEXT: Thank you for the opportunity to evaluate your patient. For Medicare and Medicare HMO plans, please review the plan of care and approve it. It will need to be FAXED BACK to us at [phone] for Medicare purposes. Please let me know if there are questions or concerns regarding this plan of care. Physician Signature: Date:
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
--- NOTE | 2019-07-08 14:28 | HP.OTDCSUM_ITS ---
It has been my pleasure to treat LIZETTE DAVIES under orders from Michael Snowden MD, for the diagnosis of Debility for a total of 8 visit(s). Please see the following information for a summary of their discharge status. % Improvement: 75 Objective/Function: right 35# left 35#. 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 pt states she is COLLEEN with light meals and daily tasks. pt reports she has ad. eq. she needs at this time. 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 Goal:: Lizette to increased B UE should flexion by 10-20 degrees to promote overhead reaching for simple meal prep and gathering of self-care items 4/5 trials 80% o fthe time by d/c. Goal:: Lizette to be (I) to complete use of adaptive techniques and compensatory strategies to promote increaed abiltiy to complete ADL/IALDs while maintaining joint integratoty by d/c. Goal:: Lizette to be mod I to complete simple meal prep tasks and laundry activities to promote increased strength and endurance to complete self-care tasks 4/5 trials 80% of the time by d/c. Goal:: Lizette to be (I) to complete daily HEP to promote strength and enduran ceof BUE needed for ADl/IALDs by d/c. Plan: D/C Discharge Comments: Pt was seen for 8 OT visits- pt was given HEP with use of isometric ex and use of t-band ex. to cont to increase pts strength and endurance. pt had been ed. on a number of different ad. eq. to increase ind in kitchen and other daily tasks. therapist also ed. pt on visual compensatory nicki. around sharp and cold objects. pt agree to HEP. If there are questions or concerns regarding this patient's occupational therapy, please fell free to call me at [phone]. Thank you for the referral of this patient. Sincerely, Ashley Acosta OTR/L, CHT
--- NOTE | 2019-08-10 15:16 | HP.PTREVAL_ITS ---
Dr. Michael Snowden MD, It has been my pleasure to treat JUWAN DAVIES over the last 16 visits for Debility. Please see the progress note below for an update on the physical therapy plan of care! Subjective: Pt reports she is getting better but is still very limited with ambulation and all IADL's Objective/Function: B LE MMT grossly 4-/5. Pt is still unable to sit to stand transfer without the use of her arms. Pt is able to ambulate 170 feet until needing to take a break and rest. Skilled PT still necessary at s time to fo cus on strength and functional mobility Plan Plan: B LE strengthening, balance and proprio, gait training, nustep, and HEP Goals Goal 1:: Increase B LE strength x 1 grade toa id with IADL's Goal Time Frame: 4-6 Weeks Goal Progress: Progressing Goal 2:: Pt will be able to ambulate greater than 300' to aid with community ambulation Goal Time Frame: 4-6 Weeks Goal Progress: Progressing Goal 3:: I with HEP Goal Time Frame: 4-6 Weeks Goal Progress: Progressing Anticipated Interventions Patient/Client Instruction: Educate patient on: Condition, Plan of Care For the Purpose of:: To improve self management Therapeutic Exercise to Include: Strength training, Endurance training, Balance training, Gait and locomotor training For the Purpose of:: To increase oxygenation perfusion, To improve muscle perfor destiny and motor function, To improve ability to perform ADL's Please do not hesitate to contact me at [phone] by phone or if you have questions or concerns regarding this new plan of care! Sincerely, Geo Phillip, PT, ATC
--- NOTE | 2019-09-06 15:05 | HP.PTREVAL ---
Dr. Michael Snowden MD, It has been my pleasure to treat UJWAN DAVIES over the last 24 visits for Debility. Please see the progress note below for an update on the physical therapy plan of care! Subjective: Pt reports she is definitely improving, but still feels very unstable with walking Objective/Function: B LE strength 4/5 throughout. Pt is able to ambulate 340' with WW and CGAx1. Progressing towards I with HEP. Pt is showing good progress and would benefit from further PT for balance and strengthening activity Plan Plan: Cont 2 times a week for 8 weeks Goals Goal 1:: Increase B LE strength x 1 grade toa id with IADL's Goal Time Frame: 4-6 Weeks Goal Progress: Progressing Goal 2:: Pt will be able to ambulate greater than 300' to aid with community ambulation Goal Time Frame: 4-6 Weeks Goal Progress: Goal Met Goal 3:: I with HEP Goal Time Frame: 4-6 Weeks Goal Progress: Progressing Goal 4:: Pt will be able to ambulate 500 feet in order to allow her to take casual walks for exercise Goal Time Frame: 2-4 Weeks Goal Progress: New goal Anticipated Interventions Patient/Client Instruction: Educate patient on: Condition, Plan of Care For the Purpose of:: To improve self management Therapeutic Exercise to Include: Strength training, Endurance training, Balance training, Gait and locomotor training For the Purpose of:: To increase oxygenation perfusion, To improve muscle performance and motor function, To improve ability to perform ADL's Please do not hesitate to contact me at [phone] by phone or if you have questions or concerns regarding this new plan of care! Sincerely, Geo Phillip, PT, ATC
--- NOTE | 2019-11-24 08:23 | HP.PTDCNRP_ITS ---
JUWAN DAVIES was seen in my office for initial evaluation on 05/20/19. The following Plan of Care was established for this patient: Initial Frequency: 2-3x /Week Initial Duration: 4-6 Weeks Patient/Client Instruction: Educate patient on: Condition, Plan of Care For the Purpose of:: To improve self management Therapeutic Exercise to Include: Strength training, Endurance training, Balance training, Gait and locomotor training For the Purpose of:: To increase oxygenation perfusion, To improve muscle performance and motor function, To improve ability to perform ADL's This patient was last seen in our office . Pertinent comments regarding their Physical therapy will appear below: Information transferred to a new V# At this point I will be discontinuing this patient from physical therapy. I wou ld be happy to see this patient again in the future if found appropriate by the physician. Thank you! Geo Phillip, PT, ATC
== END 2019-11-22 19:00 | disposition home or self-care (01) ==
LOC: PT 12:00
PROVIDERS: PCP Family Medicine Geriatric Medicine; Referring Provider Family Medicine Geriatric Medicine; Visit Provider Family Medicine Geriatric Medicine
DX: R53.81 Other malaise (principal)
CPT/HCPCS: 97110; 97116; 97161; 97164; 97166; 97168; 97530

== ENCOUNTER → 2020-03-28 10:26 | Outpatient (CLI) | payer MEDICARE, SELFPAY ==
[2019-10-14 14:06] VITALS: BMI 35.7
[2020-03-28 14:46] LABS: Absolute Lymphocyte Count 1.18 X10^3/uL (0.83-4.51); Absolute Neutrophil Count 4.6 X10^3/uL (2.0-7.7); Basophil# 0.06 X10^3/uL; Basophil% 0.9 % (0-1); Eosinophil# 0.15 X10^3/uL; Eosinophils% 2.3 % (0-5); Hematocrit 40.7 % (37-47); Lymphocyte # 1.18 X10^3/ul (4.0); Lymphocyte % 17.9 % (19-41); Mean Corp Hgb Conc 31.9 g/dL (32-36); Mean Corpuscular Hgb 31.4 pg (27.0-32.0); Mean Corpuscular Volume 98.3 fL (81-99); Monocyte# 0.61 X10^3/uL; Monocyte% 9.3 % (0-10); NRBC Flagged by Analyzer 0 % (0-5); Neutrophil # 4.58 X10^3/uL (2.7-7.7); Neutrophil % 69.4 % (47-70); Platelet Count 234 K/mm3 (150-450); RBC Distribution Width CV 13.1 % (11.6-14.6); RBC Distribution Width SD 46.8 fl (35.1-43.9); Red Blood Count 4.14 M/mm3 (4.2-5.4); White Blood Count 6.6 K/mm3 (4.4-11.0)
[2020-03-28 15:01] LABS: Vitamin D,25 Hydroxy 62.3 ng/mL
[2020-03-28 15:10] LABS: ALB/GLOB Ratio 0.8 RATIO (0.9-2.4); AST(SGOT) 16 U/L (15-37); Alanine Aminotransfer ALT/SGPT 26 U/L (13-56); Albumin, Serum 3.4 g/dL (3.2-5.0); Alkaline Phosphatase 82 U/L (45-117); Anion Gap 4 (5-15); BUN 24 mg/dL (7-18); Calcium,Total 8.9 mg/dL (8.5-10.1); Chloride 105 mmol/L (98-107); Cholesterol 162 mg/dL (200); Creatinine, Serum 1.09 mg/dL (0.55-1.02); EST Glomerular Filtration Rate 52 mL/min (>60); Est Glom Filt Rate - Afr Amer 63 mL/min (>60); Globulin 4.1 g/dL (2.2-4.2); Glucose 91 mg/dL (74-106); High Density Lipoprotein 62 mg/dL; Potassium 3.7 mmol/L (3.5-5.1); Protein, Total 7.5 g/dL (6.4-8.2); Sodium Level 141 mmol/L (136-145); Triglycerides 78 mg/dL; Very Low Density Lipoprotein 16 mg/dL (5-40)
== END ==
PROVIDERS: PCP Family Medicine Geriatric Medicine; Visit Provider Family Medicine Geriatric Medicine
DX: I10 Essential (primary) hypertension (principal); E78.5 Hyperlipidemia, unspecified; E55.9 Vitamin D deficiency, unspecified
CPT/HCPCS: 36415; 80053; 80061; 82306; 84443; 85025

== ENCOUNTER 2020-04-06 17:00 | Outpatient (RCR) | payer MEDICARE, SELFPAY ==
[2019-10-14 14:06] VITALS: BMI 35.7
--- NOTE | 2019-12-28 16:29 | HP.PTREVAL ---
Dr. Michael Snowden MD, It has been my pleasure to treat JUWAN DAVIES over the last 51 visits for debility. Please see the progress note below for an update on the physical therapy plan of care! Subjective: I am doing better. My balance is getting better and i am able to walk farther now. Objective/Function: B LE strength is grossly 4/5 throughout. Pt is able to ambulate 680 feet with WW until having to rest. Pt is progressing well toward Rx goals at this time. Pt would benefit from further PT to strengthen LE's and work on balance activity Plan Plan: cont as kareem Goals Goal 1:: Increase B LE strength x 1 grade to aid with IADL's Goal Time Frame: 4-6 Weeks Goal 2:: Pt will be able to ambulate greater than 300' to aid with community ambulation Goal Time Frame: 4-6 Weeks Goal 3:: I with HEP Goal Time Frame: 4-6 Weeks Goal 4:: Pt will be able to ambulate 500 feet in order to allow her to take casual walks for exercise Goal Time Frame: 4-6 Weeks Goal 5:: Pt will be able to DLS with EC for greater than 30 sec to aid with preventing future falls Goal Time Frame: 4-6 Weeks Anticipated Interventions Please do not hesitate to contact me at [phone] by phone or if you have questions or concerns regarding this new plan of care! Sincerely, Geo Phillip, PT, ATC
--- NOTE | 2020-01-27 14:17 | HP.PTREVAL ---
Dr. Michael Snowden MD, It has been my pleasure to treat JUWAN DAVIES over the last 59 visits for debility. Please see the progress note below for an update on the physical therapy plan of care! Subjective: I have my usual pain today. Objective/Function: MMT: B LE's are grossly 4+/5. Pt is able to stand EO for greaterthan 30 sec, but EC for only 4 sec. Pt is able to ambulate 410 feet until needing to rest. Pt continues to have difficulty with car and bathroom transfers. Pt would benefit from further gait taining and LE strengthening Plan Plan: Cont with LE strengthening, car and sit to stand transfers, and gait training Goals Goal 1:: Increase B LE strength x 1 grade to aid with IADL's Goal Time Frame: 4-6 Weeks Goal Progress: Progressing Goal 2:: Pt will be able to ambulate greater than 300' to aid with community ambulation Goal Time Frame: 4-6 Weeks Goal Progress: Goal Met Goal 3:: I with HEP Goal Time Frame: 4-6 Weeks Goal Progress: Goal Met Goal 4:: Pt will be able to ambulate 500 feet in order to allow her to take casual walks for exercise Goal Time Frame: 4-6 Weeks Goal Progress: Progressing Goal 5:: Pt will be able to DLS with EC for greater than 30 sec to aid with preventing future falls Goal Time Frame: 4-6 Weeks Goal Progress: Progressing Anticipated Interventions Please do not hesitate to contact me at [phone] by phone or if you have questions or concerns regarding this new plan of care! Sincerely, Geo Phillip, PT, ATC
--- NOTE | 2020-04-06 18:05 | HP.PTDCSUM ---
It has been my pleasure to treat JUWAN DAVIES referred by Dr. Michael Snowden MD, with the diagnosis of debility for a total of 68 visit(s). Discharge Date: Please see the following information for a summary of their discharge status. Subjective: Pt reports she is ready for discharge and HEP Body pain Pain Intensity (Out of 10): 0 % Improvement: 75 Objective/Function: Pt is now I with with gym routine Goal 1:: Increase B LE strength x 1 grade to aid with IADL's Goal Progress: Goal Met Goal 2:: Pt will be able to ambulate greater than 300' to aid with community ambulation Goal Progress: Goal Met Goal 3:: I with HEP Goal Progress: Goal Met Goal 4:: Pt will be able to ambulate 500 feet in order to allow her to take casual walks for exercise Goal Progress: Progressing Goal 5:: Pt will be able to DLS with EC for greater than 30 sec to aid with preventing future falls Goal Progress: Progressing Plan: Discharge If there are questions or concerns regarding this patient's physical therapy, please feel free to call me at [phone]. Thank you for the referral of this patient. Sincerely, Geo Phillip, PT, ATC
== END 2020-04-06 19:00 | disposition home or self-care (01) ==
LOC: PT 17:00
PROVIDERS: PCP Family Medicine Geriatric Medicine; Referring Provider Family Medicine Geriatric Medicine; Visit Provider Family Medicine Geriatric Medicine
DX: R53.81 Other malaise (principal)
CPT/HCPCS: 97110; 97164; 97530

== ENCOUNTER → 2020-06-09 14:12 | Outpatient (CLI) | payer MEDICARE, SELFPAY ==
[2020-05-25 15:46] VITALS: BMI 36.1
--- NOTE | 2020-06-09 14:14 | ECHOD_ITS ---
Reason For Study: MURMUR Procedure This was a 2D Doppler, Color Flow transthoracic echocardiogram. The study was technically difficult. Pt is s/p fall- supine position and painful. Exam performed in department. Left Ventricle Normal LV size. Left ventricular systolic function is normal. The estimated ejection fraction is 65 %. No regional wall motion abnormalities noted. Right Ventricle Normal RV size. Normal systolic function. Atria Normal left atrium. Normal right atrium. Mitral Valve Normal mitral valve. Tricuspid Valve Normal tricuspid valve. Mild (1+) tricuspid valve insufficiency. Pulmonary artery systolic pressure is 41 mmHg. Aortic Valve Trisinus/trileaflet aortic valve. Mild focal aortic valve calcification. Peak aortic valve gradient 26 mmHg. Mean aortic valve gradient 14 mmHg. Mild (1+) aortic valve insufficiency. Pulmonic Valve Normal pulmonic valve. Great Vessels Normal aortic root. The pulmonary artery is normal size. Normal inferior vena cava. Pericardium/Pleural No pericardial effusion. MMode/2D Measurements & Calculations LVIDd: 4.1 cm IVSd: 1.2 cm LVOT diam: 1.9 cm LVIDs: 2.5 cm LVPWd: 0.79 cm LVOT area: 2.9 cm2 RVDd: 3.9 cm FS: 37.8 % Ao root diam: 4.0 cm LAV(MOD-bp): 35.9 ml Aortic Valve Planimetry: 1.2 cm2 LAV(MOD-bp) Indexed: 20.4 ml/m2 LAV(MOD-sp2): 33.8 ml LAV(MOD-sp4): 37.2 ml LA dimension(2D): 3.1 cm LA A4 area: 15.2 cm2 RA A4 area: 12.6 cm2 Time Measurements MV dec time: 0.22 sec Doppler Measurements & Calculations MV E max madhu: 98.1 cm/sec Lat Peak E' Madhu: 8.4 cm/sec Med Peak E' Madhu: 4.5 cm/sec MV A max madhu: 87.1 cm/sec E/E' lat: 11.7 E/E' med: 21.7 MV E/A: 1.1 Ao V2 max: 254.4 cm/sec AI max madhu: 501.3 cm/sec LV V1 max: 102.1 cm/sec Ao max P.9 mmHg AI max P.6 mmHg LV V1 max P.2 mmHg Ao V2 mean: 173.6 cm/sec AI dec slope: 247.5 cm/sec2 LV V1 mean P.3 mmHg Ao mean P.5 mmHg AI P1/2t: 593.2 msec LV V1 mean: 71.5 cm/sec Ao V2 VTI: 54.1 cm LV V1 VTI: 22.8 cm ODESSA(I,D): 1.2 cm2 ODESSA(V,D): 1.2 cm2 SV(LVOT): 67.1 ml TR max madhu: 309.3 cm/sec TR max P.3 mmHg Interpretation Summary Normal LV size. Left ventricular systolic function is normal. The estimated ejection fraction is 65 %. Mild focal aortic valve calcification. Mean aortic valve gradient 14 mmHg. Mild (1+) aortic valve insufficiency. Pulmonary artery systolic pressure is 41 mmHg. Ordering Physician: Bret Daniels Referring Physician: AUBREE GREER Performed By: Nuvia Pal, FRIDA, RVT
== END ==
PROVIDERS: PCP Family Medicine Geriatric Medicine; Referring Provider Internal Medicine Cardiovascular Disease; Visit Provider Internal Medicine Cardiovascular Disease
DX: I35.0 Nonrheumatic aortic (valve) stenosis (principal); R06.02 Shortness of breath; R06.00 Dyspnea, unspecified
CPT/HCPCS: 93306

== ENCOUNTER → 2020-09-21 15:08 | Outpatient (CLI) | payer MEDICARE, SELFPAY ==
[2020-05-25 15:46] VITALS: BMI 36.1
[2020-09-21 17:22] LABS: Absolute Lymphocyte Count 1.39 X10^3/uL (0.83-4.51); Absolute Neutrophil Count 6.1 X10^3/uL (2.0-7.7); Basophil# 0.04 X10^3/uL; Basophil% 0.5 % (0-1); Eosinophil# 0.11 X10^3/uL; Eosinophils% 1.3 % (0-5); Hematocrit 41.1 % (37-47); Hemoglobin 13.2 g/dL (12.0-15.0); Lymphocyte # 1.39 X10^3/ul (0.83-4.51); Lymphocyte % 16.6 % (19-41); Mean Corp Hgb Conc 32.1 g/dL (32-36); Mean Corpuscular Hgb 31.4 pg (27.0-32.0); Mean Corpuscular Volume 97.9 fL (81-99); Mean Platelet Vol. 9.8 fl (6.2-12.0); Monocyte# 0.74 X10^3/uL; Monocyte% 8.9 % (0-10); NRBC Flagged by Analyzer 0 % (0-5); Neutrophil # 6.05 X10^3/uL (2.7-7.7); Neutrophil % 72.5 % (47-70); Platelet Count 262 K/mm3 (150-450); RBC Distribution Width CV 13.4 % (11.6-14.6); RBC Distribution Width SD 48.3 fl (35.1-43.9); White Blood Count 8.4 K/mm3 (4.4-11.0)
[2020-09-21 17:41] LABS: Vitamin D,25 Hydroxy 65.2 ng/mL
[2020-09-21 17:57] LABS: ALB/GLOB Ratio 0.9 RATIO (0.9-2.4); AST(SGOT) 20 U/L (15-37); Alanine Aminotransfer ALT/SGPT 22 U/L (13-56); Albumin, Serum 3.6 g/dL (3.2-5.0); Alkaline Phosphatase 69 U/L (45-117); Anion Gap 6 (5-15); BUN 15 mg/dL (7-18); BUN/Creat Ratio 19.3 RATIO (10-20); Calcium,Total 9.1 mg/dL (8.5-10.1); Chloride 106 mmol/L (98-107); Cholesterol 179 mg/dL (200); Creatinine, Serum 0.78 mg/dL (0.55-1.02); EST Glomerular Filtration Rate 77 mL/min (>60); Est Glom Filt Rate - Afr Amer 93 mL/min (>60); Globulin 4.1 g/dL (2.2-4.2); Glucose 91 mg/dL (74-106); High Density Lipoprotein 65 mg/dL; Potassium 3.7 mmol/L (3.5-5.1); Protein, Total 7.7 g/dL (6.4-8.2); Sodium Level 139 mmol/L (136-145); Thyroid Stim Hormone (TSH) 0.97 uIU/mL (0.358-3.74); Triglycerides 89 mg/dL; Very Low Density Lipoprotein 18 mg/dL (5-40)
== END ==
PROVIDERS: PCP Family Medicine Geriatric Medicine; Visit Provider Family Medicine Geriatric Medicine
DX: I10 Essential (primary) hypertension (principal); E78.5 Hyperlipidemia, unspecified; E55.9 Vitamin D deficiency, unspecified
CPT/HCPCS: 36415; 80053; 80061; 82306; 84443; 85025

== ENCOUNTER → 2021-03-13 13:58 | Outpatient (CLI) | payer MEDICARE, SELFPAY ==
[2021-03-13 17:08] LABS: Absolute Lymphocyte Count 1.26 X10^3/uL (0.83-4.51); Absolute Neutrophil Count 4.5 X10^3/uL (2.0-7.7); Basophil# 0.03 X10^3/uL; Basophil% 0.5 % (0-1); Eosinophils% 1.5 % (0-5); Hemoglobin 12.5 g/dL (12.0-15.0); Lymphocyte # 1.26 X10^3/ul (0.83-4.51); Lymphocyte % 19.1 % (19-41); Mean Corp Hgb Conc 32.9 g/dL (32-36); Mean Corpuscular Hgb 32.4 pg (27.0-32.0); Mean Corpuscular Volume 98.4 fL (81-99); Mean Platelet Vol. 9.8 fl (6.2-12.0); Monocyte# 0.67 X10^3/uL; Monocyte% 10.1 % (0-10); NRBC Flagged by Analyzer 0 % (0-5); Neutrophil # 4.54 X10^3/uL (2.7-7.7); Neutrophil % 68.6 % (47-70); Platelet Count 237 K/mm3 (150-450); RBC Distribution Width CV 12.8 % (11.6-14.6); RBC Distribution Width SD 46.1 fl (35.1-43.9); Red Blood Count 3.86 M/mm3 (4.2-5.4); White Blood Count 6.6 K/mm3 (4.4-11.0)
[2021-03-13 17:38] LABS: ALB/GLOB Ratio 0.7 RATIO (0.9-2.4); AST(SGOT) 16 U/L (15-37); Alanine Aminotransfer ALT/SGPT 25 U/L (13-56); Albumin, Serum 3.2 g/dL (3.2-5.0); Alkaline Phosphatase 68 U/L (45-117); Anion Gap 6 (5-15); BUN 17 mg/dL (7-18); BUN/Creat Ratio 20.5 RATIO (10-20); Calcium,Total 9.5 mg/dL (8.5-10.1); Chloride 104 mmol/L (98-107); Cholesterol 171 mg/dL (200); Creatinine, Serum 0.83 mg/dL (0.55-1.02); EST Glomerular Filtration Rate 71 mL/min (>60); Est Glom Filt Rate - Afr Amer 86 mL/min (>60); Globulin 4.4 g/dL (2.2-4.2); Glucose 91 mg/dL (74-106); High Density Lipoprotein 59 mg/dL; Protein, Total 7.6 g/dL (6.4-8.2); Sodium Level 137 mmol/L (136-145); Thyroid Stim Hormone (TSH) 1.06 uIU/mL (0.358-3.74); Triglycerides 85 mg/dL; Very Low Density Lipoprotein 17 mg/dL (5-40)
== END ==
PROVIDERS: PCP Family Medicine Geriatric Medicine; Visit Provider Family Medicine Geriatric Medicine
DX: I10 Essential (primary) hypertension (principal); E78.5 Hyperlipidemia, unspecified; E55.9 Vitamin D deficiency, unspecified
CPT/HCPCS: 36415; 80053; 80061; 84443; 85025

== ENCOUNTER 2021-04-10 16:08 | Emergency (ER) | payer MEDICARE, SELFPAY ==
[2021-04-10] VITALS (8 sets, daily range): BP systolic 67–157; BP diastolic 42–105; PULSE 51–69; RESP 19–21; TEMP 36.8; O2SAT 94–98; BMI 35.6
--- NOTE | 2021-04-10 16:43 | EKG12_ITS ---
Test Reason : HYPOTENSION Blood Pressure : / mmHG Vent. Rate : 054 BPM Atrial Rate : 054 BPM P-R Int : 212 ms QRS Dur : 084 ms QT Int : 436 ms P-R-T Axes : 026 -40 061 degrees QTc Int : 413 ms Sinus bradycardia with 1st degree A-V block Left axis deviation Inferior infarct , age undetermined Anterior infarct , age undetermined, cannot be excluded Abnormal ECG Confirmed by TEQUILA OROZCO, KEKE ([id number]), continuity editor JUAN MANUEL RODRIGUEZ ([id number]) on 04/11/2021 11:50:15 AM Referred By: TACOS Confirmed By:KEKE MANDEL MD
--- NOTE | 2021-04-10 16:49 | EDS_ITS ---
HPI History of Present Illness Chief Complaint: Hypotension Informant: patient Narrative Narrative: Patient presenting with likely syncopal episode brought by EMS from home. Reported had a fever 2 to 3 days ago with mild loose stools. Today after awakening felt lightheaded had a couple additional episodes diarrhea this afternoon. Nonbloody. No nausea or vomiting. No urinary symptoms. No cough. Mild headache today. Not vaccinated for COVID. No change or loss in taste or smell. She states she had breakfast at 2 PM this last thing she remembered. Her sister called EMS. Denies chest pains or abdominal pain. History of hypertension on metoprolol and amlodipine. Denies taking any extra doses. Blood pressure was 80s over palp by EMS started on IV fluids. Prior similar symptoms: No PFSH PFSH Medical History BMI 40.0-44.9, adult Encephalopathy Essential (primary) hypertension Gastroparesis History of CVA (cerebrovascular accident) History of non-ST elevation myocardial infarction (NSTEMI) (02/16/15) Myelopathy Nonrheumatic aortic (valve) stenosis Obesity (BMI 30-39.9) GERARDO (obstructive sleep apnea) Osteoarthritis Sarcoidosis Sarcoidosis Spinal cord lesion Stroke Supraventricular tachycardia Syncope and collapse Upper GI bleed Home Medications metoprolol succinate 50 mg PO BID #60 tab 08/27/17 [Rx Last Taken 04/06/19 09:00] cholecalciferol (vitamin D3) 5,000 unit PO DAILY 04/03/19 [History Last Taken 04/06/19] folic acid 1 mg PO DAILY 04/03/19 [History Last Taken 04/06/19 14:00] magnesium 250 mg PO DAILY 04/03/19 [History Last Taken 04/05/19 22:00] vitamin B complex 1 ea PO DAILY 04/03/19 [History Last Taken 04/06/19 14:00] acetaminophen 1,000 mg PO Q6H PRN PRN tab 04/26/19 [Rx Last Taken Unknown] amlodipine 2.5 mg PO DAILY #30 tab 04/26/19 [Rx Last Taken Unknown] alfalfa 650 mg tablet mg PO 05/25/20 [History Last Taken Unknown] lactulose 20 gram/30 mL oral solution 20 g PO DAILY PRN ml 05/25/20 [History Last Taken Unknown] nitrofurantoin monohyd/m-cryst [Macrobid] 100 mg PO Q12H 5 Days #10 cap 04/10/21 [Rx Last Taken Unknown] Allergy/AdvReac Type Severity Reaction Status Date / Time hydrochlorothiazide Allergy Intermediate low sodium Verified 04/10/21 16:10 atorvastatin [From Lipitor] Allergy Unknown Verified 04/10/21 16:10 doxazosin [From Cardura] Allergy Other Verified 04/10/21 16:10 lisinopril Allergy Angioedema Verified 04/10/21 16:10 amlodipine [From Norvasc] AdvReac Severe Freezes up Verified 04/10/21 16:10 limbs nifedipine AdvReac Severe Freezes up Verified 04/10/21 16:10 [From Nifedical XL] limbs alendronate sodium AdvReac Intermediate GI upset Verified 04/10/21 16:10 [From Fosamax] codeine AdvReac Unknown Verified 04/10/21 16:10 ibuprofen AdvReac Other Verified 04/10/21 16:10 HCTA AdvReac Intermediate Low sodium Uncoded 04/10/21 16:10 Family History Father Hypertension Aortic aneurysm Mother Hypertension Sister Hypertension Diabetes Surgical History History of arthroplasty of right knee History of bunionectomy of right great toe History of cataract extraction History of tonsillectomy History of tonsillectomy History of total left knee replacement History of total right knee replacement Hx of LASIK Status post right foot surgery Status post surgical removal of malignant neoplasm of skin Social History household members: caregiver housing: [facility] pets and animals: No Smoking Status: Never smoker alcohol intake: never substance use type: does not use caffeine: No what type of physical activity do you participate in: none seatbelt use: always do you feel safe at home: Yes ROS ROS ED Constitutional Constitutional ED: Reports fever(s); Denies chills or sweats Eyes Eyes: Denies change in vision ENT ENT ED: Denies dysphagia or sore throat Cardiovascular Cardiovascular: Denies chest pain, leg edema, palpitations or racing heartbeat Respiratory/Chest Respiratory/Chest: Denies cough, dyspnea or dyspnea on exertion Gastrointestinal Gastrointestinal: Reports diarrhea; Denies abdominal pain, nausea or vomiting Genitourinary Genitourinary ED: Denies dysuria, hematuria or urinary frequency Musculoskeletal Musculoskeletal: Denies back pain, extremity pain or neck pain Integumentary Denies rash or wounds Neurologic Neurologic: Reports headache(s); Denies paresthesias or weakness EXAM Physical Exam Const Vital Signs: 04/10/21 16:10 04/10/21 16:16 04/10/21 16:20 Temperature 98.3 F Temperature Source Oral Pulse Rate 55 L Respiratory Rate 21 H Respiratory Effort Normal Non-Labored Blood Pressure 82/42 L 67/48 L 111/68 Blood Pressure Mean 55 54 82 Pulse Ox 95 Oxygen Delivery Method Room Air 04/10/21 16:41 04/10/21 17:19 04/10/21 17:42 Temperature Temperature Source Pulse Rate 57 L 52 L 51 L Respiratory Rate 21 H 21 H 19 H Respiratory Effort Blood Pressure 117/77 157/105 H 124/85 H Blood Pressure Mean 90 122 98 Pulse Ox 94 97 97 Oxygen Delivery Method Room Air Room Air Room Air 04/10/21 18:03 04/10/21 20:07 Temperature Temperature Source Pulse Rate 56 L 69 Respiratory Rate 20 H 20 H Respiratory Effort Blood Pressure 138/89 H Blood Pressure Mean 105 Pulse Ox 98 98 Oxygen Delivery Method Room Air Room Air Positive well nourished and well developed General Appearance ED: well developed and NAD HEENT Reports moist mucous membranes normocephalic and atraumatic Eyes PERRL, EOMs intact bilaterally and conjunctivae normal General Eye ED: Yes normal appearance of both eyes Neck no lymphadenopathy and supple General: Negative for tenderness Chest Wall Chest: Negative for tenderness Resp normal respiratory effort and normal air movement Effort and Inspection: symmetric chest movement; Negative for respiratory distress Cardio regular rate, regular rhythm and no murmurs Rate: bradycardia Peripheral Pulses: pulses 2+ throughout GI normal to inspection, nondistended, normoactive bowel sounds and non-tender Palpation: Negative for guarding or rebound tenderness present Back/Spine no CVA tenderness and no thoracic nor lumbar tenderness Extremity normal to inspection General Extremety ED: Negative for edema or tenderness General Extremity: Negative for edema Neuro oriented x3 and no sensory deficits noted Sensorium / Orientation: awake and alert Skin no rashes or lesions noted and no wounds MDM MDM MDM Narrative Medical decision making narrative: Patient likely syncopal episode EKG sinus rate of [address] or T wave changes QTC 413. She had hypotension responding to fluids. Afebrile in the ED had a fever 3 days ago diarrhea. COVID testing returned positive. Labs stable lactic acid 1.5. Urine positive for infection. She reported dysuria 3 days ago. Blood pressures improved symptoms improved. She is ambulated with her walker with no return of symptoms pulse ox up to 98% with ambulation. She does qualify for monoclonal antibodies and would like treatment. This was ordered. Patient started on Macrobid urine culture in the lab. Return precautions discussed. Patient is being discharged under pandemic conditions under declared global, national and state disaster activation, with limited medical resources. Patient and community understands this. Results discussed in layman's terms to the patient satisfaction. All questions answered in layman's terms. Patient understands importance of follow-up care as directed. Patient has been instructed to return to the ED immediately if new symptoms, problems, or questions occur. We mutually agree with the plan of disposition. The patient understand that they may call or return with any questions or concerns at any time. Lab Data Attestation: I reviewed the patient's lab results. Labs: Laboratory Results - last 24 hr 04/10/21 04/10/21 04/10/21 17:09 17:09 17:09 WBC 3.9 L RBC 4.08 L Hgb 12.9 Hct 40.2 MCV 98.5 MCH 31.6 MCHC 32.1 RDW Std Deviation 47.6 H RDW Coeff of Ok 13.0 Plt Count 174 MPV 9.6 Immature Gran % (Auto) 0.500 Neut % (Auto) 62.5 Lymph % (Auto) 18.1 L Foster % (Auto) 18.6 H Eos % (Auto) 0.0 Baso % (Auto) 0.3 Absolute Neuts (auto) 2.5 Absolute Lymphs (auto) 0.71 L Nucleated RBC % 0 Sodium 138 Potassium 3.9 Chloride 103 Carbon Dioxide 26.0 Anion Gap 9 BUN 22 H Creatinine 1.07 H Estim Creat Clear Calc 55.44 Est GFR (MDRD) Af Amer 64 Est GFR (MDRD) Non-Af 53 L BUN/Creatinine Ratio 20.6 H Glucose 93 Lactic Acid 1.5 Calcium 9.0 Magnesium 2.2 Total Bilirubin 0.30 AST 25 ALT 26 Alkaline Phosphatase 52 Total Protein 7.0 Albumin 3.2 Globulin 3.8 Albumin/Globulin Ratio 0.8 L Urine Color Urine Clarity Urine pH Ur Specific Haz[place] Urine Protein Urine Glucose (UA) Urine Ketones Urine Occult Blood Urine Nitrite Urine Bilirubin Urine Urobilinogen Ur Leukocyte Esterase Urine RBC Urine WBC Ur Squamous Epith Cells Urine Bacteria Urine Mucus 04/10/21 19:06 WBC RBC Hgb Hct MCV MCH MCHC RDW Std Deviation RDW Coeff of Ok Plt Count MPV Immature Gran % (Auto) Neut % (Auto) Lymph % (Auto) Foster % (Auto) Eos % (Auto) Baso % (Auto) Absolute Neuts (auto) Absolute Lymphs (auto) Nucleated RBC % Sodium Potassium Chloride Carbon Dioxide Anion Gap BUN Creatinine Estim Creat Clear Calc Est GFR (MDRD) Af Amer Est GFR (MDRD) Non-Af BUN/Creatinine Ratio Glucose Lactic Acid Calcium Magnesium Total Bilirubin AST ALT Alkaline Phosphatase Total Protein Albumin Globulin Albumin/Globulin Ratio Urine Color Yellow Urine Clarity Clear Urine pH 5.0 Ur Specific Hazlet 1.015 Urine Protein 15 H Urine Glucose (UA) Normal Urine Ketones 5 H Urine Occult Blood Negative Urine Nitrite Positive H Urine Bilirubin Negative Urine Urobilinogen Normal Ur Leukocyte Esterase 25 H Urine RBC 0 SEEN Urine WBC 5-10 SEEN Ur Squamous Epith Cells 0-5 SEEN Urine Bacteria 1+ Urine Mucus 0 SEEN Radiography Chest X-Ray - ED: 1 View, Read by ED Physician and Read by Radiologist Diagnostic Testing: Clinical Impression(s) from Imaging Studies Chest X-Ray 04/10/21 17:13 IMPRESSION: There are no acute findings. Electronically Signed: Geo Delgado MD at 17:28 EST , Service support , EKG Initial EKG: Attestation: I personally reviewed and interpreted this EKG as follows: Comments: Sinus rate of 54, no ST or T wave changes. QTc 413. Discharge Plan Triage Chief Complaint: Hypotension ED Provider: Oscar Friedman Dx/Rx/DC Orders Clinical Impression: COVID-19 virus infection, Acute UTI, Syncope Instructions: Coronavirus Disease 2019 (COVID-19): Caring for Yourself or Others, Urinary Tract Infections in Women, Diagnosing Syncope Prescriptions: New nitrofurantoin monohyd/m-cryst [Macrobid] 100 mg capsule 100 mg PO Q12H 5 Days Qty: 10 RF: 0 No Action lactulose 20 gram/30 mL solution 20 g PO DAILY PRNRF: 0 alfalfa 650 mg tablet PO RF: 0 metoprolol succinate 50 MG tablet 50 mg PO BID Qty: 60 RF: 0 vitamin B complex 1 EACH tablet 1 ea PO DAILY RF: 0 folic acid 1 MG tablet 1 mg PO DAILY RF: 0 magnesium 250 MG tablet 250 mg PO DAILY RF: 0 cholecalciferol (vitamin D3) 5,000 UNIT capsule 5,000 unit PO DAILY RF: 0 acetaminophen 500 MG tablet 1,000 mg PO Q6H PRN PRN (Reason: Pain Score 1-10/10) RF: 0 amlodipine 2.5 MG tablet 2.5 mg PO DAILY Qty: 30 RF: 0 Primary Care Provider: Michael Snowden Chi Referrals: Michael Snowden Chi, MD [Primary Care Provider] - 5-7 Days Activity Restrictions/Additional Instructions: Your COVID is positive. You are ordered for the monoclonal antibody. Expect a call tomorrow. Take antibiotic as prescribed for urinary tract infection. Disposition Disposition: Home, Self Care Discharge Date/Time: 04/10/21 21:33
--- NOTE | 2021-04-10 17:13 | RAD_ITS ---
STUDY: X-RAY CHEST REASON FOR EXAM: Female, 75 years old. CHEST PAIN syncope TECHNIQUE: XR Chest 1 View COMPARISON: 5 FINDINGS: There is no demonstrated pleural abnormality. Normal size heart. Normal mediastinum and lili. Normal visualized pulmonary arteries. There is atherosclerotic calcification of the aortic arch with tortuosity. There are diffuse degenerative changes of the visualized thoracic spine. There is degenerative osteoarthritis of the bilateral shoulders. There is no demonstrated abnormality of the visualized soft tissue structures of the upper abdomen. RAD/Chest 1 View (Portable) IMPRESSION: There are no acute findings. Electronically Signed: Geo Delgado MD at 17:28 EST , Service support ,
[2021-04-10] MEDS: 0.9% Normal Saline 1,000 ML 1000 ML IV (17:18)
[2021-04-10 17:39] LABS: Absolute Lymphocyte Count 0.71 X10^3/uL (0.83-4.51); Absolute Neutrophil Count 2.5 X10^3/uL (2.0-7.7); Basophil# 0.01 X10^3/uL; Basophil% 0.3 % (0-1); Hematocrit 40.2 % (37-47); Hemoglobin 12.9 g/dL (12.0-15.0); Lymphocyte # 0.71 X10^3/ul (0.83-4.51); Lymphocyte % 18.1 % (19-41); Mean Corp Hgb Conc 32.1 g/dL (32-36); Mean Corpuscular Hgb 31.6 pg (27.0-32.0); Mean Corpuscular Volume 98.5 fL (81-99); Mean Platelet Vol. 9.6 fl (6.2-12.0); Monocyte# 0.73 X10^3/uL; Monocyte% 18.6 % (0-10); NRBC Flagged by Analyzer 0 % (0-5); Neutrophil # 2.46 X10^3/uL (2.7-7.7); Neutrophil % 62.5 % (47-70); Platelet Count 174 K/mm3 (150-450); RBC Distribution Width SD 47.6 fl (35.1-43.9); Red Blood Count 4.08 M/mm3 (4.2-5.4); White Blood Count 3.9 K/mm3 (4.4-11.0)
[2021-04-10 18:05] LABS: ALB/GLOB Ratio 0.8 RATIO (0.9-2.4); AST(SGOT) 25 U/L (15-37); Alanine Aminotransfer ALT/SGPT 26 U/L (13-56); Albumin, Serum 3.2 g/dL (3.2-5.0); Alkaline Phosphatase 52 U/L (45-117); Anion Gap 9 (5-15); BUN 22 mg/dL (7-18); BUN/Creat Ratio 20.6 RATIO (10-20); Chloride 103 mmol/L (98-107); Creatinine, Serum 1.07 mg/dL (0.55-1.02); EST Glomerular Filtration Rate 53 mL/min (>60); Est Glom Filt Rate - Afr Amer 64 mL/min (>60); Estimated Creatinine Clearance 55.44 ml/min; Globulin 3.8 g/dL (2.2-4.2); Glucose 93 mg/dL (74-106); Magnesium 2.2 mg/dL (1.6-2.6); Potassium 3.9 mmol/L (3.5-5.1); Sodium Level 138 mmol/L (136-145)
[2021-04-10 18:09] LABS: Lactic Acid 1.5 mmol/L (0.4-1.9)
[2021-04-10 19:19] LABS: Mucous, Urine 0 SEEN /hpf (<or=2+); Red Blood Cells-Urine 0 SEEN /hpf (0-5)
[2021-04-10 19:26] LABS: Color, Urine Yellow (Yellow); Glucose, Dipstick Normal (Normal); Ketone-Dipstick 5 mg/dl (Negative); Leukocyte Esterase-Dipstick 25 /ul (Negative); Nitrite-Dipstick Positive (Negative); Occult Blood-Urine Negative /ul (Negative); Protein-Dipstick 15 mg/dl (Negative); Specific Gravity, Urine 1.015 (1.002-1.030); Urine Bilirubin Dipstick Negative (Negative); Urine Clarity Clear (Clear); Urine Urobilinogen Normal (Normal)
[2021-04-10 19:40] LABS: Bacteria 1+ /hpf (None Seen); Squamous Epithelial Cells - UA 0-5 SEEN /hpf (5-10); White Blood Cells 5-10 SEEN /hpf (0-5)
== END 2021-04-10 21:33 | disposition home or self-care (01) ==
PROVIDERS: Emergency Provider Emergency Medicine; PCP Family Medicine Geriatric Medicine; Visit Provider Emergency Medicine
DX: U07.1 COVID-19 (principal); I47.1 Supraventricular tachycardia; I95.9 Hypotension, unspecified; N39.0 Urinary tract infection, site not specified; I10 Essential (primary) hypertension; Z79.899 Other long term (current) drug therapy; Z86.73 Personal history of transient ischemic attack (TIA), and cerebral infarction without residual deficits; I25.2 Old myocardial infarction; I35.0 Nonrheumatic aortic (valve) stenosis; E66.9 Obesity, unspecified; G47.33 Obstructive sleep apnea (adult) (pediatric); M19.90 Unspecified osteoarthritis, unspecified site; D86.9 Sarcoidosis, unspecified; Z87.19 Personal history of other diseases of the digestive system; Z68.35 Body mass index [BMI] 35.0-35.9, adult
CPT/HCPCS: 36415; 71045; 80053; 81001; 83605; 83735; 85025; 87040; 87077; 87086; 87088; 87186; 87426; 93005; 96360; 96361; 99285; A4216

== ENCOUNTER 2021-04-14 13:48 | Outpatient (CLI) | payer MEDICARE, SELFPAY ==
[2021-04-14 13:51] VITALS: BP 128/71; PULSE 71; RESP 16; TEMP 37; O2SAT 96; BMI 34.3
[2021-04-14] MEDS: 0.9% Saline Lock 10 ML Syringe IV (14:10)
[2021-04-14 14:42] VITALS: BP 135/90; PULSE 66; RESP 16; TEMP 36.9; O2SAT 96
[2021-04-14 15:39] VITALS: BP 138/80; PULSE 63; RESP 16; TEMP 36.9; O2SAT 98
== END 2021-04-14 23:59 | disposition home or self-care (01) ==
LOC: MS3OUT 13:49 → MS3 13:49
PROVIDERS: PCP Family Medicine Geriatric Medicine; Referring Provider Emergency Medicine; Visit Provider Emergency Medicine
DX: Z23 Encounter for immunization (principal); U07.1 COVID-19; I25.10 Atherosclerotic heart disease of native coronary artery without angina pectoris
CPT/HCPCS: J7050; M0245; Q0245; A4216

== ENCOUNTER 2021-04-19 16:30 | Outpatient (RCR) | payer MEDICARE, SELFPAY ==
[2020-05-25 15:46] VITALS: BMI 36.1
--- NOTE | 2020-10-06 15:33 | HP.PTEVAL_ITS ---
Patient's Visit Information JUWAN DAVIES is a 74 year old F referred to Physical Therapy by Dr. Michael Snowden MD with a diagnosis of B LE weakness and decreased balance. Date of Evaluation: 10/06/20 Physical Therapist: Geo Phillip, PT, ATC - Visit Plan Frequency: 2-3x /Week Duration: 6 Weeks Plan: B LE strengthening, core strengthening, balance and proprio, nustep, and HEP - Subjective Pt reports she has had LE weakness and balance issues for a couple years. Pt reports she has had PT in the past which has helped, but pt reports she has started to notice much more difficulty with walking. Pt reports she was going to join our Book Buy[employer] program, but felt like she would be too weak to exercise on her own. Pt reports she has some numbness in her feet from neuropathy. Pt reports no recent falls, but feels like she could fall. Pt reports she has LOB often when at the kitchen sink, or when brushing her teeth. Pt reports she only has one step into her house and is able to negotiate them as long as she has railings to grab onto. Pt reports she is not in any pain this date. - Objective Neuro: B LE sensation is hyposensitive to light touch throughout. MMT: R LE is grossly rated at 4-/5 throughout, while L LE is grossly 4/5 throughout. Gait: Pt is able to ambulate approximately 120 feet until feeling fatigued and needing to rest. Balance: Pt is able to stand for 15 sec EO with minimal to moderate sway. Pt is unable to stand for greater than 3 seconds with EC indicating an increased risk for falling. Transfers: Pt must use B UE's with all transfers - Goals Goal 1:: Increase B LE strength x 1 grade to aid with all transfers Goal Time Frame: 6-8 Weeks Goal 2:: Pt will be able to ambulate greater than 300' to aid with community ambulation Goal Time Frame: 6-8 Weeks Goal 3:: Pt will be able to stand for 30 sec with EO/EC without LOB to aid with preventing future falls Goal Time Frame: 6-8 Weeks Goal 4:: I with HEP Goal Time Frame: 6-8 Weeks - Rehabilitation Potential Physical Therapy Diagnosis: Pt has B LE weakness and decreased balance secondary to debilitation Rehabilitation Potential: Good - Anticipated Interventions Patient/Client Instruction: Educate patient on: Condition, Plan of Care For the Purpose of:: To improve self management Therapeutic Exercise to Include: Strength training, Endurance training, Balance training, Gait and locomotor training, Dynamic Lumbar Stabilization For the Purpose of:: To increase ROM, To increase oxygenation perfusion, To improve muscle performance and motor function, To improve gait and locomotor functions Thank you for the opportunity to evaluate your patient. For Medicare and Medicare HMO plans, please review the plan of care and approve it. It will need to be FAXED BACK to us at [phone] for Medicare purposes. For Medicare only, by signing this I certify the plan of care. Please let me know if there are questions or concerns regarding this plan of care. Physician Signature: Date:
--- NOTE | 2020-12-25 17:53 | HP.PTREVAL ---
Dr. Michael Snowden MD, It has been my pleasure to treat JUWAN DAVIES over the last 18 visits for B LE weakness and decreased balance. Please see the progress note below for an update on the physical therapy plan of care! Subjective: Pt reports she continues to feel debilitated Objective/Function: Pt is able to ambulate 340' with WW and CGAx1. B LE strength is grossly 4/5 throughout. Pt is able to stand EO for greater than 30 sec, but only 11 seconds with EC. Pt is progressing with tolerance for ambulation and LE strength, but is still very limited with IADL's Plan Plan: Attempt to get 12 more PT visits to focus on LE strengthening, balance, and tolerance to ambulation Balance/Gait/Functional tests - Balance/Special Test Scores Lower Extremity Functional Score: 28 Goals Goal 1:: Increase B LE strength x 1 grade to aid with all transfers Goal Time Frame: 6-8 Weeks Goal Progress: Progressing Goal 2:: Pt will be able to ambulate greater than 300' to aid with community ambulation Goal Time Frame: 6-8 Weeks Goal Progress: Goal Met Goal 3:: Pt will be able to stand for 30 sec with EO/EC without LOB to aid with preventing future falls Goal Time Frame: 6-8 Weeks Goal Progress: Progressing Goal 4:: I with HEP Goal Time Frame: 6-8 Weeks Goal Progress: Progressing Anticipated Interventions Patient/Client Instruction: Educate patient on: Condition, Plan of Care For the Purpose of:: To improve self management Therapeutic Exercise to Include: Strength training, Endurance training, Balance training, Gait and locomotor training, Dynamic Lumbar Stabilization For the Purpose of:: To increase ROM, To increase oxygenation perfusion, To improve muscle performance and motor function, To improve gait and locomotor functions Please do not hesitate to contact me at [phone] by phone or if you have questions or concerns regarding this new plan of care! Sincerely, Geo Phillip, PT, ATC
--- NOTE | 2021-02-26 15:02 | HP.PTREVAL ---
Dr. Michael Snowden MD, It has been my pleasure to treat JUWAN DAVIES over the last 30 visits for B LE weakness and decreased balance. Please see the progress note below for an update on the physical therapy plan of care! Subjective: Pt reports she feels like she has really improved. Pt notes she has a much easier time with stair negotiation and car transfers Objective/Function: B LE MMT is grossly 4+/5 throughout. Pt is able to DLS with EO x 30 sec, but only 3 seconds with EC. Pt is able to ambulate 481 feet until needing to sit down and rest. Pt continues to progress in all aspects, but is still unable to perform essential IADL's such as grocery shopping secondary to LE weakness and decreased balance. Plan Plan: Attempt to get 12 more PT visits to focus on B LE strengthening, toleration for ambulation, and improving standing dynamic balance. Balance/Gait/Functional tests - Balance/Special Test Scores Lower Extremity Functional Score: 26 Goals Goal 1:: Increase B LE strength x 1 grade to aid with all transfers Goal Time Frame: 6-8 Weeks Goal Progress: Progressing Goal 2:: Pt will be able to ambulate greater than 300' to aid with community ambulation Goal Time Frame: 6-8 Weeks Goal Progress: Goal Met Goal 3:: Pt will be able to stand for 30 sec with EO/EC without LOB to aid with preventing future falls Goal Time Frame: 6-8 Weeks Goal Progress: Progressing Goal 4:: I with HEP Goal Time Frame: 6-8 Weeks Goal Progress: Progressing Anticipated Interventions Patient/Client Instruction: Educate patient on: Condition, Plan of Care For the Purpose of:: To improve self management Therapeutic Exercise to Include: Strength training, Endurance training, Balance training, Gait and locomotor training, Dynamic Lumbar Stabilization For the Purpose of:: To increase ROM, To increase oxygenation perfusion, To improve muscle performance and motor function, To improve gait and locomotor functions Please do not hesitate to contact me at [phone] by phone or if you have questions or concerns regarding this new plan of care! Sincerely, Geo Phillip, PT, ATC
--- NOTE | 2021-05-23 08:30 | HP.PT.NRP ---
JUWAN DAVIES was seen in my office for initial evaluation on 10/06/20. The following Plan of Care was established for this patient: Initial Frequency: 2-3x /Week Initial Duration: 6 Weeks Patient/Client Instruction: Educate patient on: Condition, Plan of Care For the Purpose of:: To improve self management Therapeutic Exercise to Include: Strength training, Endurance training, Balance training, Gait and locomotor training, Dynamic Lumbar Stabilization For the Purpose of:: To increase ROM, To increase oxygenation perfusion, To improve muscle performance and motor function, To improve gait and locomotor functions This patient was last seen in our office . Pertinent comments regarding their Physical therapy will appear below: Pt was treated for 40 visits for debility. Pt experienced several setbacks throughout her treatments consisting of COVID and family deaths. Pt is discontinued at this time secondary to insurance expiration. At this point I will be discontinuing this patient from physical therapy. I would be happy to see this patient again in the future if found appropriate by the physician. Thank you! Geo Phillip, PT, ATC Balance/Gait/Functional tests - Balance/Special Test Scores Lower Extremity Functional Score: 26
== END 2021-04-19 19:00 | disposition home or self-care (01) ==
LOC: PT 16:30
PROVIDERS: PCP Family Medicine Geriatric Medicine; Referring Provider Family Medicine Geriatric Medicine; Visit Provider Family Medicine Geriatric Medicine
DX: R53.1 Weakness (principal)
CPT/HCPCS: 97110; 97161; 97164

== ENCOUNTER → 2021-09-25 | Outpatient (CLI) | payer MEDICARE, SELFPAY ==
[2021-09-25 18:16] LABS: Absolute Lymphocyte Count 1.32 X10^3/uL (0.83-4.51); Absolute Neutrophil Count 4.8 X10^3/uL (2.0-7.7); Basophil# 0.04 X10^3/uL; Basophil% 0.6 % (0-1); Eosinophil# 0.17 X10^3/uL; Eosinophils% 2.4 % (0-5); Hematocrit 39.8 % (37-47); Hemoglobin 12.8 g/dL (12.0-15.0); Lymphocyte # 1.32 X10^3/ul (0.83-4.51); Lymphocyte % 18.9 % (19-41); Mean Corp Hgb Conc 32.2 g/dL (32-36); Mean Corpuscular Hgb 31.6 pg (27.0-32.0); Mean Corpuscular Volume 98.3 fL (81-99); Mean Platelet Vol. 10.1 fl (6.2-12.0); Monocyte# 0.63 X10^3/uL; NRBC Flagged by Analyzer 0 % (0-5); Neutrophil # 4.81 X10^3/uL (2.7-7.7); Neutrophil % 68.8 % (47-70); Platelet Count 227 K/mm3 (150-450); RBC Distribution Width CV 13.2 % (11.6-14.6); RBC Distribution Width SD 47.1 fl (35.1-43.9); Red Blood Count 4.05 M/mm3 (4.2-5.4)
[2021-09-25 18:33] LABS: ALB/GLOB Ratio 0.9 RATIO (0.9-2.4); AST(SGOT) 15 U/L (15-37); Alanine Aminotransfer ALT/SGPT 20 U/L (13-56); Albumin, Serum 3.5 g/dL (3.2-5.0); Alkaline Phosphatase 62 U/L (45-117); Anion Gap 6 (5-15); BUN 13 mg/dL (7-18); Calcium,Total 9.2 mg/dL (8.5-10.1); Chloride 106 mmol/L (98-107); Cholesterol 170 mg/dL (200); Creatinine, Serum 0.76 mg/dL (0.55-1.02); EST Glomerular Filtration Rate 78 mL/min (>60); Est Glom Filt Rate - Afr Amer 95 mL/min (>60); Globulin 3.7 g/dL (2.2-4.2); Glucose 96 mg/dL (74-106); High Density Lipoprotein 60 mg/dL; Potassium 3.9 mmol/L (3.5-5.1); Protein, Total 7.2 g/dL (6.4-8.2); Sodium Level 141 mmol/L (136-145); Thyroid Stim Hormone (TSH) 0.89 uIU/mL (0.358-3.74); Triglycerides 93 mg/dL; Very Low Density Lipoprotein 19 mg/dL (5-40)
[2021-09-25 18:59] LABS: Vitamin D,25 Hydroxy 76.5 ng/mL
== END | disposition home or self-care (01) ==
PROVIDERS: PCP Family Medicine Geriatric Medicine; Visit Provider Family Medicine Geriatric Medicine
DX: I10 Essential (primary) hypertension (principal); E78.5 Hyperlipidemia, unspecified; E55.9 Vitamin D deficiency, unspecified
CPT/HCPCS: 36415; 80053; 80061; 82306; 84443; 85025

== ENCOUNTER 2021-12-24 14:00 | Outpatient (RCR) | payer MEDICARE, SELFPAY ==
--- NOTE | 2021-06-01 16:13 | HP.PTEVAL_ITS ---
Patient's Visit Information JUWAN DAVIES is a 75 year old F referred to Physical Therapy by Dr. Michael Snowden MD with a diagnosis of Debilitation. Date of Evaluation: 06/01/21 Physical Therapist: Geo Phillip, PT, ATC - Visit Plan Frequency: 2-3x /Week Duration: 4-6 Weeks Plan: B LE strengthening, balance and proprio, core strengthening, gait training, nustep, and HEP - Subjective Pt reports she has been regressing for the last 3 months. Pt reports she was performing therpy for her balance and LE weakness at that time but then had a in the family, and then became very ill after agustin COVID. Pt reports she is now coming back to increase her strength and to be able to ambulate with greater stability. Pt reports she had a recent fall a couple months ago secondary to having irregular blood pressure. Pt reports she is not able to perform most of her IADLs I at this time secondary to her lack of balance and weakness. Pt reports she has good feelings in her LE's, and other times not. Pt reports she has one step into the house which is difficult to negotiate I without help. Pt reports she has overall body pain today. - Pain Overall body Pain Intensity (Out of 10): 4 - Objective Neuro: B LE sensation is WNL to light touch. ROM: B LE's are WFL bilaterally. MMT: B Le's are grossly 4-/5 throughout. Balance: Pt is unable to stand upright without UE support at this time without LOB. Gait: Pt is able to ambulate approximately 170 feet with WW until feeling fatigued and having to rest - Balance/Special Test Scores Lower Extremity Functional Score: 22 - Goals Goal 1:: Increase B LE strength x 1 grade to aid with stair negotiation Goal Time Frame: 4-6 Weeks Goal 2:: Pt will be able to DLS I for greater than 2 minutes to prevent future falls Goal Time Frame: 4-6 Weeks Goal 3:: Pt will be able to ambulate greater than 600' with WW to aid with community ambulation Goal Time Frame: 4-6 Weeks Goal 4:: I with HEP Goal Time Frame: 4-6 Weeks - Rehabilitation Potential Physical Therapy Diagnosis: Pt has B LE weakness, difficulty with ambulation, and a Hx of falls secondary to debilitation Rehabilitation Potential: Good - Anticipated Interventions Patient/Client Instruction: Educate patient on: Condition, Plan of Care For the Purpose of:: To improve self management Therapeutic Exercise to Include: Strength training, Endurance training, Balance training, Gait and locomotor training, Dynamic Lumbar Stabilization For the Purpose of:: To improve muscle performance and motor function, To improv e ability to perform ADL's, To increase tolerance to activity/condition/position Thank you for the opportunity to evaluate your patient. For Medicare and Medicare HMO plans, please review the plan of care and approve it. It will need to be FAXED BACK to us at [phone] for Medicare purposes. For Medicare only, by signing this I certify the plan of care. Please let me know if there are questions or concerns regarding this plan of care. Physician Signature: Date:
--- NOTE | 2021-08-10 15:03 | HP.PTREVAL ---
Dr. Michael Snowden MD, It has been my pleasure to treat JUWAN DAVIES over the last 20 visits for Debilitation. Please see the progress note below for an update on the physical therapy plan of care! Subjective: Pt reports she felt like she was making good progress until she fell. Objective/Function: Pt is able to ambulate 340' until needing to rest secondary to pain. MMT: B knee flex and ext= 4+/5; B hips are grossly 4-/5 throughout. Pt is able to DLS for 60 seconds until losing balance. Pt is showing progress with strength and tolerance for ambulation. Pt is still very limited with balance which could result in future falls if not progressed. Skilled therapy is necessary at this time for balance and further strengthening. Plan Plan: Attempt to get 18 more PT visits approved for balance and strengthening ex's Balance/Gait/Functional tests - Balance/Special Test Scores Lower Extremity Functional Score: 15 Goals Goal 1:: Increase B LE strength x 1 grade to aid with stair negotiation Goal Time Frame: 4-6 Weeks Goal Progress: Progressing Goal 2:: Pt will be able to DLS I for greater than 2 minutes to prevent future falls Goal Time Frame: 4-6 Weeks Goal Progress: Progressing Goal 3:: Pt will be able to ambulate greater than 600' with WW to aid with community ambulation Goal Time Frame: 4-6 Weeks Goal Progress: Progressing Goal 4:: I with HEP Goal Time Frame: 4-6 Weeks Goal Progress: Progressing Anticipated Interventions Patient/Client Instruction: Educate patient on: Condition, Plan of Care For the Purpose of:: To improve self management Therapeutic Exercise to Include: Strength training, Endurance training, Balance training, Gait and locomotor training, Dynamic Lumbar Stabilization For the Purpose of:: To improve muscle performance and motor function, To improve ability to perform ADL's, To increase tolerance to activity/condition/position Please do not hesitate to contact me at [phone] by phone or if you have questions or concerns regarding this new plan of care! Sincerely, Geo Phillip, PT, ATC
--- NOTE | 2021-11-05 14:59 | HP.PTREVAL ---
Dr. Michael Snowden MD, It has been my pleasure to treat JUWAN DAVIES over the last 38 visits for Debilitation. Please see the progress note below for an update on the physical therapy plan of care! Subjective: Pt reports she feels like she is improving, but notes she still needs to work on her balance and strength Objective/Function: MMT: B LE's are grossly 4/5 throughout with the exception of knee ext= 5/5. DLS: Pt is able to stand for 2 min without LOB, however pt did begin to lose balance on 4 separate occasions. Gait: Pt is able to ambulate 340 feet with WW and CGA with only taking 3 rest breaks for a moment. Pt is showing steady progress, but continues to lack functional strength and balance for IADL's Plan Plan: Attempt to get 12 more Rx visits to focus on functional strength, dynamic balance, and gait training. Balance/Gait/Functional tests - Balance/Special Test Scores Lower Extremity Functional Score: 20 Goals Goal 1:: Increase B LE strength x 1 grade to aid with stair negotiation Goal Time Frame: 4-6 Weeks Goal Progress: Progressing Goal 2:: Pt will be able to DLS I for greater than 2 minutes to prevent future falls Goal Time Frame: 4-6 Weeks Goal Progress: Goal Met Goal 3:: Pt will be able to ambulate greater than 600' with WW to aid with community ambulation Goal Time Frame: 4-6 Weeks Goal Progress: Progressing Goal 4:: I with HEP Goal Time Frame: 4-6 Weeks Goal Progress: Progressing Goal 5:: Pt will be able to ascend and descend 1 flight of stairs with only using one UE to aid with house chores. Goal Time Frame: 4-6 Weeks Anticipated Interventions Patient/Client Instruction: Educate patient on: Condition, Plan of Care For the Purpose of:: To improve self management Therapeutic Exercise to Include: Strength training, Endurance training, Balance training, Gait and locomotor training, Dynamic Lumbar Stabilization For the Purpose of:: To improve muscle performance and motor function, To improve ability to perform ADL's, To increase tolerance to activity/condition/position Please do not hesitate to contact me at [phone] by phone or if you have questions or concerns regarding this new plan of care! Sincerely, Geo Phillip, PT, ATC
--- NOTE | 2021-12-24 15:10 | HP.PTREVAL_ITS ---
Dr. Michael Snowden MD, It has been my pleasure to treat JUWAN DAVIES over the last 50 visits for Debilitation. Please see the progress note below for an update on the physical therapy plan of care! Subjective: Pt reports she feels like she has made significant raza thus far, but is still very limited with community ambulation Objective/Function: MMT: B knee ext 5/5, all other measurements were 4/5. Gait: Pt is able to ambulate 340 feet with CGAx1 and WW until needing to sit down and rest secondary to fatigue. Stairs: Pt is able to ascend and descend one flight of stairs but requires both handrails for safety. Pt can DLS for greater than 2 min without difficulty. Pt is progressing well toward Rx goals, but still lacks functional strength for stair negotiation and dynamic gait Plan Plan: Attempt to get 12 more visits approved to focus on gait training, stair negotiation, balance, and LE strengthening Balance/Gait/Functional tests - Balance/Special Test Scores Lower Extremity Functional Score: 28 Goals Goal 1:: Increase B LE strength x 1 grade to aid with stair negotiation Goal Time Frame: 4-6 Weeks Goal Progress: Progressing Goal 2:: Pt will be able to DLS I for greater than 2 minutes to prevent future falls Goal Time Frame: 4-6 Weeks Goal Progress: Goal Met Goal 3:: Pt will be able to ambulate greater than 600' with WW to aid with community ambulation Goal Time Frame: 4-6 Weeks Goal Progress: Progressing Goal 4:: I with HEP Goal Time Frame: 4-6 Weeks Goal Progress: Progressing Goal 5:: Pt will be able to ascend and descend 1 flight of stairs with only using one UE to aid with house chores. Goal Time Frame: 4-6 Weeks Goal Progress: Progressing Anticipated Interventions Patient/Client Instruction: Educate patient on: Condition, Plan of Care For the Purpose of:: To improve self management Therapeutic Exercise to Include: Strength training, Endurance training, Balance training, Gait and locomotor training, Dynamic Lumbar Stabilization For the Purpose of:: To improve muscle performance and motor function, To improve ability to perform ADL's, To increase tolerance to activity/conditi on/position Please do not hesitate to contact me at [phone] by phone or if you have questions or concerns regarding this new plan of care! Sincerely, Geo Phillip, PT, ATC
--- NOTE | 2022-01-07 17:39 | HP.PT.NRP ---
JUWAN DAVIES was seen in my office for initial evaluation on 06/01/21. The following Plan of Care was established for this patient: Initial Frequency: 2-3x /Week Initial Duration: 4-6 Weeks Patient/Client Instruction: Educate patient on: Condition, Plan of Care For the Purpose of:: To improve self management Therapeutic Exercise to Include: Strength training, Endurance training, Balance training, Gait and locomotor training, Dynamic Lumbar Stabilization For the Purpose of:: To improve muscle performance and motor function, To improve ability to perform ADL's, To increase tolerance to activity/condition/position This patient was last seen in our office . Pertinent comments regarding their Physical therapy will appear below: Care has been transferred to a new chart with a new V#. At this point I will be discontinuing this patient from physical therapy. I would be happy to see this patient again in the future if found appropriate by the physician. Thank you! Goe Phillip, PT, ATC Balance/Gait/Functional tests - Balance/Special Test Scores Lower Extremity Functional Score: 28
== END 2021-12-24 19:00 | disposition home or self-care (01) ==
LOC: PT 14:00
PROVIDERS: PCP Family Medicine Geriatric Medicine; Referring Provider Family Medicine Geriatric Medicine; Visit Provider Family Medicine Geriatric Medicine
DX: R29.898 Other symptoms and signs involving the musculoskeletal system (principal)
CPT/HCPCS: 97110; 97161; 97164

== ENCOUNTER 2022-02-15 14:00 | Outpatient (RCR) | payer MEDICARE, SELFPAY ==
--- NOTE | 2022-02-15 15:36 | HP.PTREVAL ---
Dr. Michael Snowden MD, It has been my pleasure to treat JUWAN DAVIES over the last 62 visits for Debility. Please see the progress note below for an update on the physical therapy plan of care! Subjective: Pt reports she feels like she is getting better, but notes her tolerance for activity and balance continue to be very unsteady. And pt reports she has difficulty with bed transfers Objective/Function: Pt is able to ambulate 340' with WW until needing a break due to fatigue. MMT: B LE's 4+/5. Pt requires use of 2UE with stair negotiation. Pt remains a fall risk at this time. Plan Plan: Attempt to get 8 more visits approved to focus on balance, gait training Balance/Gait/Functional tests - Balance/Special Test Scores Lower Extremity Functional Score: 24 Goals Goal 1:: Increase B LE strength x 1 grade to aid with stair negotiation Goal Time Frame: 4-6 Weeks Goal Progress: Goal Met Goal 2:: Pt will be able to ambulate greater than 600' with WW to aid with community ambulation Goal Time Frame: 4-6 Weeks Goal Progress: Progressing Goal 3:: Pt will be able to ascend and descend 1 flight of stairs with only using one UE to aid with house chores. Goal Time Frame: 4-6 Weeks Goal Progress: Progressing Goal 4:: I with HEP Goal Progress: Progressing Anticipated Interventions Patient/Client Instruction: Educate patient on: Condition, Plan of Care For the Purpose of:: To improve self management Therapeutic Exercise to Include: Strength training, Endurance training, Balance training, Gait and locomotor training, Dynamic Lumbar Stabilization For the Purpose of:: To improve muscle performance and motor function, To improve ability to perform ADL's, To increase tolerance to activity/condition/position Please do not hesitate to contact me at [phone] by phone or if you have questions or concerns regarding this new plan of care! Sincerely, Geo Phillip, PT, ATC
--- NOTE | 2022-07-19 09:26 | HP.PT.NRP ---
JUWAN DAVIES was seen in my office for initial evaluation on . The following Plan of Care was established for this patient: Patient/Client Instruction: Educate patient on: Condition, Plan of Care For the Purpose of:: To improve self management Therapeutic Exercise to Include: Strength training, Endurance training, Balance training, Gait and locomotor training, Dynamic Lumbar Stabilization For the Purpose of:: To improve muscle performance and motor function, To improve ability to perform ADL's, To increase tolerance to activity/condition/position This patient was last seen in our office . Pertinent comments regarding their Physical therapy will appear below: Care transferred to a different V number and a new chart At this point I will be discontinuing this patient from physical therapy. I would be happy to see this patient again in the future if found appropriate by the physician. Thank you! Geo Phillip, PT, ATC Balance/Gait/Functional tests - Balance/Special Test Scores Lower Extremity Functional Score: 24
== END 2022-02-15 19:00 | disposition home or self-care (01) ==
LOC: PT 14:00
PROVIDERS: PCP Family Medicine Geriatric Medicine; Referring Provider Family Medicine Geriatric Medicine; Visit Provider Family Medicine Geriatric Medicine
DX: G83.10 Monoplegia of lower limb affecting unspecified side (principal)
CPT/HCPCS: 97110; 97164

== ENCOUNTER → 2022-03-26 | Outpatient (CLI) | payer MEDICARE, SELFPAY ==
[2022-03-26 17:12] LABS: Absolute Lymphocyte Count 1.21 X10^3/uL (0.83-4.51); Basophil# 0.03 X10^3/uL; Basophil% 0.5 % (0-1); Eosinophil# 0.11 X10^3/uL; Eosinophils% 1.9 % (0-5); Hematocrit 39.7 % (37-47); Hemoglobin 12.6 g/dL (12.0-15.0); Lymphocyte # 1.21 X10^3/ul (0.83-4.51); Lymphocyte % 20.4 % (19-41); Mean Corp Hgb Conc 31.7 g/dL (32-36); Mean Corpuscular Hgb 31.4 pg (27.0-32.0); Mean Platelet Vol. 10.1 fl (6.2-12.0); Monocyte# 0.55 X10^3/uL; Monocyte% 9.3 % (0-10); NRBC Flagged by Analyzer 0 % (0-5); Neutrophil # 4.01 X10^3/uL (2.7-7.7); Neutrophil % 67.6 % (47-70); Platelet Count 221 K/mm3 (150-450); RBC Distribution Width CV 13.1 % (11.6-14.6); RBC Distribution Width SD 47.1 fl (35.1-43.9); Red Blood Count 4.01 M/mm3 (4.2-5.4); White Blood Count 5.9 K/mm3 (4.4-11.0)
[2022-03-26 17:39] LABS: Vitamin D,25 Hydroxy 78.9 ng/mL
[2022-03-26 18:01] LABS: ALB/GLOB Ratio 0.9 RATIO (0.9-2.4); AST(SGOT) 18 U/L (15-37); Alanine Aminotransfer ALT/SGPT 23 U/L (13-56); Albumin, Serum 3.4 g/dL (3.2-5.0); Alkaline Phosphatase 64 U/L (45-117); Anion Gap 8 (5-15); BUN 14 mg/dL (7-18); BUN/Creat Ratio 18.9 RATIO (10-20); Calcium,Total 8.8 mg/dL (8.5-10.1); Chloride 104 mmol/L (98-107); Cholesterol 176 mg/dL (200); Creatinine, Serum 0.74 mg/dL (0.55-1.02); EST Glomerular Filtration Rate 81 mL/min (>60); Est Glom Filt Rate - Afr Amer 98 mL/min (>60); Globulin 3.6 g/dL (2.2-4.2); Glucose 88 mg/dL (74-106); High Density Lipoprotein 60 mg/dL; Potassium 4.1 mmol/L (3.5-5.1); Sodium Level 140 mmol/L (136-145); Thyroid Stim Hormone (TSH) 0.92 uIU/mL (0.358-3.74); Triglycerides 113 mg/dL; Very Low Density Lipoprotein 23 mg/dL (5-40)
== END | disposition home or self-care (01) ==
PROVIDERS: PCP Family Medicine Geriatric Medicine; Visit Provider Family Medicine Geriatric Medicine
DX: I10 Essential (primary) hypertension (principal); E55.9 Vitamin D deficiency, unspecified; E78.5 Hyperlipidemia, unspecified
CPT/HCPCS: 36415; 80053; 80061; 82306; 84443; 85025

== ENCOUNTER → 2022-06-07 | Outpatient (CLI) | payer MEDICARE, SELFPAY ==
[2022-06-07 12:27] LABS: Absolute Lymphocyte Count 1.34 X10^3/uL (0.83-4.51); Absolute Neutrophil Count 4.5 X10^3/uL (2.0-7.7); Basophil# 0.06 X10^3/uL; Basophil% 0.9 % (0-1); Eosinophil# 0.15 X10^3/uL; Eosinophils% 2.3 % (0-5); Hematocrit 40.1 % (37-47); Lymphocyte # 1.34 X10^3/ul (0.83-4.51); Lymphocyte % 20.2 % (19-41); Mean Corp Hgb Conc 32.4 g/dL (32-36); Mean Corpuscular Hgb 32.3 pg (27.0-32.0); Mean Corpuscular Volume 99.5 fL (81-99); Mean Platelet Vol. 9.5 fl (6.2-12.0); Monocyte# 0.57 X10^3/uL; Monocyte% 8.6 % (0-10); NRBC Flagged by Analyzer 0 % (0-5); Neutrophil # 4.49 X10^3/uL (2.7-7.7); Neutrophil % 67.7 % (47-70); Platelet Count 214 K/mm3 (150-450); RBC Distribution Width CV 13.1 % (11.6-14.6); Red Blood Count 4.03 M/mm3 (4.2-5.4); White Blood Count 6.6 K/mm3 (4.4-11.0)
[2022-06-07 12:39] LABS: Erythrocyte Sedimentation Rate 30 mm/hr (0-30)
[2022-06-07 13:26] LABS: ALB/GLOB Ratio 0.9 RATIO (0.9-2.4); AST(SGOT) 23 U/L (15-37); Alanine Aminotransfer ALT/SGPT 25 U/L (13-56); Albumin, Serum 3.6 g/dL (3.2-5.0); Alkaline Phosphatase 72 U/L (45-117); Anion Gap 8 (5-15); BUN 13 mg/dL (7-18); BUN/Creat Ratio 16.9 RATIO (10-20); CRP < 2.90 mg/L (0.0-3.0); Calcium,Total 9.5 mg/dL (8.5-10.1); Chloride 103 mmol/L (98-107); Creatinine, Serum 0.77 mg/dL (0.55-1.02); EST Glomerular Filtration Rate 78 mL/min (>60); Est Glom Filt Rate - Afr Amer 94 mL/min (>60); Glucose 85 mg/dL (74-106); LDH 226 U/L (84-246); Potassium 3.6 mmol/L (3.5-5.1); Protein, Total 7.6 g/dL (6.4-8.2); Sodium Level 140 mmol/L (136-145)
[2022-06-08 16:09] LABS: Anti-Centromere B Ab 0.3 AI (0.0-0.9); Anti-Chromatin <0.2 AI (0.0-0.9); Anti-Jo <0.2 AI (0.0-0.9); Anti-Scleroderma-70 AB <0.2 AI (0.0-0.9); RNP Ab <0.2 AI (0.0-0.9); SJOGREN'S Anti-SS-A test < 0.2 AI (0.0-0.9); SJOGREN'S Anti-SS-B test < 0.2 AI (0.0-0.9); Smith Ab <0.2 AI (0.0-0.9)
[2022-06-08 18:30] LABS: Anti-dsDNA Ab 5 IU/mL (0-9)
[2022-06-10 15:08] LABS: Albumin 3.6 g/dL (2.9-4.4); Alpha-1-Globulins 0.3 g/dL (0.0-0.4); Alpha-2-Globulins 0.7 g/dL (0.4-1.0); Cytoplasmic Ab (C-ANCA) <1:20 titer (Neg:<1:20); Endomysial Antibody IgA Negative (Negative); Gamma Globulin 1.6 g/dL (0.4-1.8); Immunoglobulin A 338 mg/dL (64-422); Immunoglobulin E 25 IU/mL (6-495); Immunoglobulin G 1428 mg/dL (586-1602); Immunoglobulin M 92 mg/dL (26-217); PROEL- TOTAL PROTEIN 7.2 g/dL (6.0-8.5)
[2022-06-10 16:44] LABS: Immunoglobulin A 324 mg/dL (64-422); t-Transglutaminase IgA <2 U/mL (0-3)
[2022-06-10 16:54] LABS: Perinuclear Ab (P-ANCA) <1:20 titer (Neg:<1:20)
== END | disposition home or self-care (01) ==
PROVIDERS: PCP Family Medicine Geriatric Medicine; Referring Provider Internal Medicine Gastroenterology; Visit Provider Internal Medicine Gastroenterology
DX: R10.9 Unspecified abdominal pain (principal); I47.1 Supraventricular tachycardia; R19.7 Diarrhea, unspecified
CPT/HCPCS: 36415; 80053; 82784; 82785; 83516; 83615; 84165; 85025; 85652; 86140; 86225; 86235; 86255; 86256; 86334

== ENCOUNTER → 2022-07-16 | Outpatient (CLI) | payer MEDICARE, SELFPAY ==
--- NOTE | 2022-07-16 09:11 | US_ITS ---
STUDY: ABDOMINAL ULTRASOUND REASON FOR EXAM: Female, 76 years old. Abdominal pain. TECHNIQUE: Transabdominal ultrasound was performed with real-time and static ham scale imaging. TECHNICAL QUALITY: Adequate. COMPARISON: CT of the abdomen and pelvis, April 27, 2019 FINDINGS: Liver: The liver measures 14.1 cm. There is normal echogenicity of the liver. The bile ducts are within normal limits. There is hepatic color flow. The direction of portal flow is hepatopetal. There is no demonstrated mass lesion. Portal vein measurement: 1.1 cm Gallbladder: Normal distended gallbladder. The gallbladder wall measures 1.6 mm. There is a negative sonographic Epps''s sign. There is no pericholecystic fluid. There are multiple echogenic structures within the gallbladder, consistent with multiple gallstones. Common Bile Duct (C.B.D.): The common bile duct measures 4.3 mm. Pancreas: Normal size of the head, body and tail of the pancreas. There is normal echogenicity of the pancreas. There is no demonstrated pancreatic mass or cyst. Spleen: Normal size of the spleen. The spleen measures 8.1 cm. Right Kidney: Normal size of the right kidney. The right kidney measures 8.7 cm. Normal renal cortex. The right cortex measures 1.3 cm. There is no demonstrated renal mass or cyst. There is no right hydronephrosis. Left Kidney: Normal size of the left kidney. The left kidney measures 10.2 cm. Normal renal cortex. The left cortex measures 1.1 cm. There is no demonstrated renal mass or cyst. There is no left hydronephrosis. Aorta: No abdominal aortic aneurysm. I.V.C.: The IVC is patent. There is no ascites. US/Abdomen Complete IMPRESSION: 1. Gallstones without secondary evidence of acute cholecystitis. 2. Otherwise grossly normal sonogram of the abdomen. Electronically Signed: Nelson Jimenez DO at 16:54 EDT ,
== END | disposition home or self-care (01) ==
PROVIDERS: PCP Family Medicine Geriatric Medicine; Visit Provider Internal Medicine Gastroenterology
DX: R10.9 Unspecified abdominal pain (principal); K40.90 Unilateral inguinal hernia, without obstruction or gangrene, not specified as recurrent
CPT/HCPCS: 76700

== ENCOUNTER → 2022-08-05 | Outpatient (CLI) | payer MEDICARE, SELFPAY ==
[2022-08-09 08:11] LABS: Pancreatic Elastase, Fecal 202 (>200)
[2022-08-13 20:08] LABS: Calprotectin, Stool 32 ug/g (0-120)
== END | disposition home or self-care (01) ==
LOC: LABSPEC 14:05
PROVIDERS: PCP Family Medicine Geriatric Medicine; Referring Provider Internal Medicine Gastroenterology; Visit Provider Internal Medicine Gastroenterology
DX: R10.9 Unspecified abdominal pain (principal); R19.7 Diarrhea, unspecified
CPT/HCPCS: 82653; 83630; 83993

== ENCOUNTER 2022-11-05 15:00 | Outpatient (RCR) | payer MEDICARE, SELFPAY ==
--- NOTE | 2022-05-07 15:22 | HP.PTEVAL ---
Patient's Visit Information JUWAN DAVIES is a 76 year old F referred to Physical Therapy by Dr. Michael Snowden MD with a diagnosis of Debility. Date of Evaluation: 05/07/22 Physical Therapist: Geo Phillip, PT, ATC - Visit Plan Frequency: 2-3x /Week Duration: 4-6 Weeks Plan: B LE strengthening, balance and proprio, core strengthening, nustep, and HEP - Subjective Pt reports she has been very inactive over the last few months, and reports her LE's have become very weak. Pt reports she had PT a few months ago which helped her to become stronger and walk better. Pt reports she has been trying to do as much exercise as she can, but she is limited a lot with what she can do secondary to limited space at home. Pt reports she has one step going from the garage to the kitchen, but reports she has a lot of difficulty with negotiating it secondary to weakness. Pt reports she has peripheral neuropathy, and has tingling and numbness in her feet on occasion. Pt reports she is limited from walking long distances secondary to weakness and balance. Pt reports she is not in pain today. No sleep difficulty at this time. Pt reports she does have difficulty with getting into bed at this time. - Objective Neuro: B LE sensation is WNL to light touch. MMT: B LE's are grossly 4-/5 throughout. ROM: B LE's are WFL when compared bilaterally. Gait: Pt is able to ambulate approximately 90 feet until needing to sit and rest. Stairs: - Balance/Special Test Scores Lower Extremity Functional Score: 12 - Goals Goal 1:: Increase B LE strength x 1 grade to aid with stair negotiation Goal Time Frame: 4-6 Weeks Goal 2:: Pt will be able to reciprocally negotiate 10 stairs with 1-2 handrails to aid with community mobility Goal Time Frame: 4-6 Weeks Goal 3:: Pt will be able to ambulate 1000 feet to aid with community ambulation Goal Time Frame: 4-6 Weeks Goal 4:: I with HEP Goal Time Frame: 4-6 Weeks - Rehabilitation Potential Physical Therapy Diagnosis: Pt has B LE weakness, difficulty with ambulation, and unsteady gait secondary to debility Rehabilitation Potential: Good - Anticipated Interventions Patient/Client Instruction: Educate patient on: Condition, Plan of Care For the Purpose of:: To improve self management Therapeutic Exercise to Include: Strength training, Endurance training, Balance training, Gait and locomotor training, Active ROM, Dynamic Lumbar Stabilization For the Purpose of:: To increase oxygenation perfusion, To improve muscle performance and motor function, To improve ability to perform ADL's, To decrease level of supervision to perform tasks Cryotherapy (ice pack, ice massage): Yes For the Purpose of:: To decrease pain Thank you for the opportunity to evaluate your patient. For Medicare and Medicare HMO plans, please review the plan of care and approve it. It will need to be FAXED BACK to us at [phone] for Medicare purposes. For Medicare only, by signing this I certify the plan of care. Please let me know if there are questions or concerns regarding this plan of care. Physician Signature: Date:
--- NOTE | 2022-06-14 15:48 | HP.PTDCSUM ---
It has been my pleasure to treat JUWAN DAVIES referred by Dr. Michael Snowden MD, with the diagnosis of Debility for a total of 10 visit(s). Discharge Date: Please see the following information for a summary of their discharge status. Subjective: I have to have a cardiac cath today Bilateral Neck Pain Intensity (Out of 10): 0 % Improvement: 20 Objective/Function: Pt kareem all ex's well. Increased fatigue post session. Goal 1:: Increase B LE strength x 1 grade to aid with stair negotiation Goal 2:: Pt will be able to reciprocally negotiate 10 stairs with 1-2 handrails to aid with community mobility Goal 3:: Pt will be able to ambulate 1000 feet to aid with community ambulation Goal 4:: I with HEP Plan: B LE strengthening, balance and proprio, core strengthening, nustep, and HEP. If there are questions or concerns regarding this patient's physical therapy, please feel free to call me at [phone]. Thank you for the referral of this patient. Sincerely, Geo Phillip, PT, ATC Balance/Gait/Functional tests - Balance/Special Test Scores Lower Extremity Functional Score: 12
--- NOTE | 2022-07-16 15:07 | HP.PTREVAL ---
Dr. Michael Snowden MD, It has been my pleasure to treat JUWAN DAVIES over the last 19 visits for Debility. Please see the progress note below for an update on the physical therapy plan of care! Subjective: Pt reports she feels like she is getting better, but notes she continues to have difficulty with ambulation and stair negotiation. Objective/Function: B LE strength is grossly 4-/5 throughout. Pt is able to ambulate 340 feet until feeling fatigued and needing to rest. Pt can negotiate one flight of 10 stairs with B UE's and one step at a time. Pt is progressing with gait and overall tolerance for activity, still remains limited with most IADL's and ADL's secondary to weakness and limited balance. Plan Plan: Attempt to get 12 more visits approved to focus on B LE strengthening, balance, gait training, and stair negotiation Balance/Gait/Functional tests - Balance/Special Test Scores Lower Extremity Functional Score: 12 Goals Goal 1:: Increase B LE strength x 1 grade to aid with stair negotiation Goal Time Frame: 4-6 Weeks Goal 2:: Pt will be able to reciprocally negotiate 10 stairs with 1-2 handrails to aid with community mobility Goal Time Frame: 4-6 Weeks Goal 3:: Pt will be able to ambulate 1000 feet to aid with community ambulation Goal Time Frame: 4-6 Weeks Goal 4:: I with HEP Goal Time Frame: 4-6 Weeks Anticipated Interventions Patient/Client Instruction: Educate patient on: Condition, Plan of Care For the Purpose of:: To improve self management Therapeutic Exercise to Include: Strength training, Endurance training, Balance training, Gait and locomotor training, Active ROM, Dynamic Lumbar Stabilization For the Purpose of:: To increase oxygenation perfusion, To improve muscle performance and motor function, To improve ability to perform ADL's, To decrease level of supervision to perform tasks Cryotherapy (ice pack, ice massage): Yes For the Purpose of:: To decrease pain Please do not hesitate to contact me at [phone] by phone or if you have questions or concerns regarding this new plan of care! Sincerely, Geo Phillip, PT, ATC
--- NOTE | 2022-09-06 15:17 | HP.PTREVAL ---
Dr. Michael Snowden MD, It has been my pleasure to treat JUWAN DAVIES over the last 29 visits for Debility. Please see the progress note below for an update on the physical therapy plan of care! Subjective: I feel like I have taken 3 steps backward. Objective/Function: Pt is able to ambulate 340 feet this date with WW and several rest breaks. Pt is able to negotiate 10 stairs with 2 handrails one step at a time. B LE strength 4-/5. Pt is showing progress but continues to have difficulty with stairs and mobility Plan Plan: Attempt to get 12 more visits approved to focus on LE strengthening, balance, and gait training Balance/Gait/Functional tests - Balance/Special Test Scores Lower Extremity Functional Score: 25 Goals Goal 1:: Increase B LE strength x 1 grade to aid with stair negotiation Goal Time Frame: 4-6 Weeks Goal Progress: Progressing Goal 2:: Pt will be able to reciprocally negotiate 10 stairs with 1-2 handrails to aid with community mobility Goal Time Frame: 4-6 Weeks Goal Progress: Progressing Goal 3:: Pt will be able to ambulate 1000 feet to aid with community ambulation Goal Time Frame: 4-6 Weeks Goal Progress: Progressing Goal 4:: I with HEP Goal Time Frame: 4-6 Weeks Anticipated Interventions Patient/Client Instruction: Educate patient on: Condition, Plan of Care For the Purpose of:: To improve self management Therapeutic Exercise to Include: Strength training, Endurance training, Balance training, Gait and locomotor training, Active ROM, Dynamic Lumbar Stabilization For the Purpose of:: To increase oxygenation perfusion, To improve muscle performance and motor function, To improve ability to perform ADL's, To decrease level of supervision to perform tasks Cryotherapy (ice pack, ice massage): Yes For the Purpose of:: To decrease pain Please do not hesitate to contact me at [phone] by phone or if you have questions or concerns regarding this new plan of care! Sincerely, Geo Phillip, PT, ATC
--- NOTE | 2022-11-05 16:04 | HP.PTREVAL_ITS ---
Re-Evaluation Intro: Dr. Michael Snowden MD, It has been my pleasure to treat JUWAN DAVIES over the last 40 visits for Debility. Please see the progress note below for an update on the physical therapy plan of care! Subjective Subjective: My legs still feel really heavy. Pt reports she feels like she has improved, but still has a little difficulty with ambulation and transfers Objective Objective/Function: B LE's are grossly rated at 4/5 throughout Pt is able to ambulate 565 feet with WW until needing to sit secondary to fatigue Stairs: Plan Plan Plan: Attempt to get 12 more visits approved at this time to focus on B LE strengthening and community ambulation Balance/Gait/Functional tests Balance/Special Test Scores Lower Extremity Functional Score: 27 Goals Goals Goal 1:: Increase B LE strength x 1 grade to aid with stair negotiation Goal Time Frame: 4-6 Weeks Goal Progress: Progressing Goal 2:: Pt will be able to reciprocally negotiate 10 stairs with 1-2 handrails to aid with community mobility Goal Time Frame: 4-6 Weeks Goal Progress: Progressing Goal 3:: Pt will be able to ambulate 1000 feet to aid with community ambulation Goal Time Frame: 4-6 Weeks Goal Progress: Progressing Goal 4:: I with HEP Goal Time Frame: 4-6 Weeks Goal Progress: Progressing Anticipated Interventions Anticipated Interventions Patient/Client Instruction: Educate patient on: Condition and Plan of Care For the Purpose of:: To improve self management Therapeutic Exercise to Include: Strength training, Endurance training, Balance training, Gait and locomotor training, Active ROM and Dynamic Lumbar Stabilizat ion For the Purpose of:: To increase oxygenation perfusion, To improve muscle performance and motor function, To improve ability to perform ADL's and To decrease level of supervision to perform tasks Cryotherapy (ice pack, ice massage): Yes For the Purpose of:: To decrease pain Re-Evaluation Ending Re-evaluation ending: Please do not hesitate to contact me at [phone] by phone or if you have questions or concerns regarding this new plan of care! Sincerely, Geo Phillip, PT, ATC
== END 2022-11-05 19:00 | disposition home or self-care (01) ==
LOC: PT 15:00
PROVIDERS: PCP Family Medicine Geriatric Medicine; Referring Provider Family Medicine Geriatric Medicine; Visit Provider Family Medicine Geriatric Medicine
DX: R26.89 Other abnormalities of gait and mobility (principal)
CPT/HCPCS: 97110; 97112; 97161; 97164

== ENCOUNTER → 2022-11-27 | Outpatient (CLI) | payer MEDICARE, SELFPAY ==
[2022-11-27 17:42] LABS: Absolute Lymphocyte Count 1.24 X10^3/uL (0.83-4.51); Absolute Neutrophil Count 3.3 X10^3/uL (2.0-7.7); Basophil# 0.04 X10^3/uL; Basophil% 0.8 % (0-1); Eosinophil# 0.13 X10^3/uL; Eosinophils% 2.5 % (0-5); Hematocrit 37.8 % (37-47); Hemoglobin 11.9 g/dL (12.0-15.0); Lymphocyte # 1.24 X10^3/ul (0.83-4.51); Lymphocyte % 23.8 % (19-41); Mean Corp Hgb Conc 31.5 g/dL (32-36); Mean Corpuscular Hgb 31.5 pg (27.0-32.0); Monocyte# 0.49 X10^3/uL; Monocyte% 9.4 % (0-10); NRBC Flagged by Analyzer 0 % (0-5); Neutrophil % 63.1 % (47-70); Platelet Count 214 K/mm3 (150-450); RBC Distribution Width CV 13.1 % (11.6-14.6); RBC Distribution Width SD 47.8 fl (35.1-43.9); Red Blood Count 3.78 M/mm3 (4.2-5.4); White Blood Count 5.2 K/mm3 (4.4-11.0)
[2022-11-27 18:12] LABS: Vitamin D,25 Hydroxy 87.7 ng/mL
[2022-11-27 18:25] LABS: ALB/GLOB Ratio 0.8 RATIO (0.9-2.4); AST(SGOT) 21 U/L (15-37); Alanine Aminotransfer ALT/SGPT 22 U/L (13-56); Albumin, Serum 3.3 g/dL (3.2-5.0); Alkaline Phosphatase 68 U/L (45-117); Anion Gap 5 (5-15); BUN 14 mg/dL (7-18); BUN/Creat Ratio 21.3 RATIO (10-20); Calcium,Total 9.2 mg/dL (8.5-10.1); Chloride 110 mmol/L (98-107); Cholesterol 169 mg/dL (200); Creatinine, Serum 0.66 mg/dL (0.55-1.02); EST Glomerular Filtration Rate 93 mL/min (>60); Est Glom Filt Rate - Afr Amer 112 mL/min (>60); Globulin 4.1 g/dL (2.2-4.2); Glucose 93 mg/dL (74-106); High Density Lipoprotein 66 mg/dL; Potassium 4.1 mmol/L (3.5-5.1); Protein, Total 7.4 g/dL (6.4-8.2); Sodium Level 143 mmol/L (136-145); Thyroid Stim Hormone (TSH) 0.84 uIU/mL (0.358-3.74); Triglycerides 57 mg/dL; Very Low Density Lipoprotein 11 mg/dL (5-40)
== END | disposition home or self-care (01) ==
LOC: POLAB3 16:05
PROVIDERS: PCP Family Medicine Geriatric Medicine; Visit Provider Family Medicine Geriatric Medicine
DX: I10 Essential (primary) hypertension (principal); E55.9 Vitamin D deficiency, unspecified
CPT/HCPCS: 36415; 80053; 80061; 82306; 84443; 85025

== ENCOUNTER 2023-04-28 16:00 | Outpatient (RCR) | payer MEDICARE, SELFPAY ==
--- NOTE | 2022-12-27 15:06 | HP.PTREVAL ---
Re-Evaluation Intro: Dr. Michael Snowden MD, It has been my pleasure to treat JUWAN DAVIES over the last 51 visits for Debility. Please see the progress note below for an update on the physical therapy plan of care! Subjective Subjective: Pt. reports feeling very tired, sore, lethargic and anxious. Objective Objective/Function: MMT: B LE's grossly 4-/5 throughout. Gait: 340ft with WW and CGAx1 and difficulty Pt is showing progress at this time but continues to be limited with all IADL's secondary to debilitation Plan Plan Plan: Attempt to obtain 12 more PT visits to aid with increasing tolerance for ambulation and to increase LE strength Balance/Gait/Functional tests Balance/Special Test Scores Lower Extremity Functional Score: 19 Goals Goals Goal 1:: Increase B LE strength to 4+/5-5/5 to aid with ascending 1 flight of stairs Goal Time Frame: 4-6 Weeks Goal Progress: Progressing Goal 2:: Pt will be able to ambulate 600 with LRD and no rest break to aid with independence with community ambulation Goal Time Frame: 4-6 Weeks Goal Progress: Progressing Goal 3:: Pt will be I with HEP of B LE strengthening and balance activity Goal Time Frame: 4-6 Weeks Goal Progress: Progressing Anticipated Interventions Re-Evaluation Ending Re-evaluation ending: Please do not hesitate to contact me at [phone] by phone or if you have questions or concerns regarding this new plan of care! Sincerely, Geo Phillip, PT, ATC
--- NOTE | 2023-02-14 16:00 | HP.PTREVAL ---
Re-Evaluation Intro: Dr. Michael Snowden MD, It has been my pleasure to treat JUWAN DAVIES over the last 60 visits for Debility. Please see the progress note below for an update on the physical therapy plan of care! Subjective Subjective: Pt reports she had made significant improvements, but has regressed since her fall. Objective Objective/Function: B LE strength is 4+/5 throughout Pt is able to ambulate 400 feet until needing to sit Pt can perform 9 sit to stands in 30 sec Pt is finally starting to progress again after having a major setback from her fall Plan Plan Plan: Attempt to get 12 more treatments approved to focus on B LE strengthening, balance, and gait training Balance/Gait/Functional tests Balance/Special Test Scores Lower Extremity Functional Score: 19 Goals Goals Goal 1:: Increase B LE strength to 4+/5-5/5 to aid with ascending 1 flight of stairs Goal Time Frame: 4-6 Weeks Goal Progress: Goal Met Goal 2:: Pt will be able to ambulate 600 with LRD and no rest break to aid with independence with community ambulation Goal Time Frame: 4-6 Weeks Goal Progress: Progressing Goal 3:: Pt will be I with HEP of B LE strengthening and balance activity Goal Time Frame: 4-6 Weeks Goal Progress: Progressing Goal 4:: Perform 15 sit to stands in 30 seconds to aid with home and community mobility Goal Time Frame: 4-6 Weeks Goal Progress: New goal Anticipated Interventions Re-Evaluation Ending Re-evaluation ending: Please do not hesitate to contact me at [phone] by phone or if you have questions or concerns regarding this new plan of care! Sincerely, Geo Phillip, PT, ATC
--- NOTE | 2023-05-02 15:54 | HP.PTDCSUM ---
Discharge Summary D/C summary: It has been my pleasure to treat JUWAN DAVIES referred by Dr. Michael Snowden MD, with the diagnosis of Debility for a total of 79 visit(s). Discharge Date: Please see the following information for a summary of their discharge status. Subjective Subjective: Pt reports she is not in pain, she is just numb and stiff. Pain LBP: Pain Intensity (Out of 10): 0 Overall Improvement % Improvement: 60 Objective Objective/Function: MMT: B LE's are grossly 4+/5 Pt is able to ambulate 340 feet until needing to rest Pt performs 12 sit to stand ex's in 30 sec Pt is I with HEP Goals Goal 1:: Increase B LE strength to 4+/5-5/5 to aid with ascending 1 flight of stairs Goal Progress: Goal Met Goal 2:: Pt will be able to ambulate 600 with LRD and no rest break to aid with independence with community ambulation Goal Progress: Progressing Goal 3:: Pt will be I with HEP of B LE strengthening and balance activity Goal Progress: Goal Met Goal 4:: Perform 15 sit to stands in 30 seconds to aid with home and community mobility Goal Progress: Progressing Plan Plan: Discontinue to HEP D/C Information d/c sentence: If there are questions or concerns regarding this patient's physical therapy, please feel free to call me at [phone]. Thank you for the referral of this patient. Sincerely, Geo Phillip, PT, ATC Balance/Gait/Functional tests Balance/Special Test Scores Lower Extremity Functional Score: 19 Improvement % Improvement: 60
== END 2023-04-28 19:00 | disposition home or self-care (01) ==
LOC: PT 16:00
PROVIDERS: PCP Family Medicine Geriatric Medicine; Referring Provider Family Medicine Geriatric Medicine; Visit Provider Family Medicine Geriatric Medicine
DX: R53.81 Other malaise (principal)
CPT/HCPCS: 97110; 97164; 97530

== ENCOUNTER → 2023-05-09 | Outpatient (CLI) | payer MEDICARE, SELFPAY ==
[2023-05-09 14:35] LABS: Absolute Lymphocyte Count 1.22 X10^3/uL (0.83-4.51); Absolute Neutrophil Count 4.2 X10^3/uL (2.0-7.7); Basophil# 0.04 X10^3/uL; Basophil% 0.7 % (0-1); Eosinophil# 0.14 X10^3/uL; Eosinophils% 2.3 % (0-5); Hematocrit 39.9 % (37-47); Hemoglobin 12.3 g/dL (12.0-15.0); Lymphocyte # 1.22 X10^3/ul (0.83-4.51); Mean Corp Hgb Conc 30.8 g/dL (32-36); Mean Corpuscular Hgb 31.1 pg (27.0-32.0); Mean Corpuscular Volume 100.8 fL (81-99); Mean Platelet Vol. 9.8 fl (6.2-12.0); Monocyte# 0.51 X10^3/uL; Monocyte% 8.4 % (0-10); NRBC Flagged by Analyzer 0 % (0-5); Neutrophil # 4.15 X10^3/uL (2.7-7.7); Neutrophil % 68.1 % (47-70); Platelet Count 225 K/mm3 (150-450); RBC Distribution Width CV 13.2 % (11.6-14.6); RBC Distribution Width SD 49.1 fl (35.1-43.9); Red Blood Count 3.96 M/mm3 (4.2-5.4); White Blood Count 6.1 K/mm3 (4.4-11.0)
[2023-05-09 14:38] LABS: Erythrocyte Sedimentation Rate 18 mm/hr (0-30)
[2023-05-09 16:12] LABS: CRP < 2.90 mg/L (0.0-3.0)
== END | disposition home or self-care (01) ==
LOC: LAB 13:59
PROVIDERS: PCP Family Medicine Geriatric Medicine; Referring Provider Orthopaedic Surgery; Visit Provider Orthopaedic Surgery
DX: M25.562 Pain in left knee (principal)
CPT/HCPCS: 36415; 85025; 85652; 86140

== ENCOUNTER → 2023-05-28 | Outpatient (CLI) | payer MEDICARE, SELFPAY ==
[2023-05-28 17:51] LABS: Absolute Lymphocyte Count 1.31 X10^3/uL (0.83-4.51); Absolute Neutrophil Count 4.3 X10^3/uL (2.0-7.7); Basophil# 0.03 X10^3/uL; Basophil% 0.5 % (0-1); Eosinophil# 0.15 X10^3/uL; Eosinophils% 2.4 % (0-5); Hematocrit 39.4 % (37-47); Hemoglobin 12.7 g/dL (12.0-15.0); Lymphocyte # 1.31 X10^3/ul (0.83-4.51); Lymphocyte % 20.5 % (19-41); Mean Corp Hgb Conc 32.2 g/dL (32-36); Mean Corpuscular Hgb 32.5 pg (27.0-32.0); Mean Corpuscular Volume 100.8 fL (81-99); Mean Platelet Vol. 9.8 fl (6.2-12.0); Monocyte# 0.57 X10^3/uL; Monocyte% 8.9 % (0-10); NRBC Flagged by Analyzer 0 % (0-5); Neutrophil % 67.4 % (47-70); Platelet Count 219 K/mm3 (150-450); RBC Distribution Width CV 13.2 % (11.6-14.6); RBC Distribution Width SD 48.9 fl (35.1-43.9); Red Blood Count 3.91 M/mm3 (4.2-5.4); White Blood Count 6.4 K/mm3 (4.4-11.0)
[2023-05-28 18:11] LABS: Vitamin D,25 Hydroxy 81.9 ng/mL
[2023-05-28 18:40] LABS: ALB/GLOB Ratio 0.8 RATIO (0.9-2.4); AST(SGOT) 23 U/L (15-37); Alanine Aminotransfer ALT/SGPT 29 U/L (13-56); Albumin, Serum 3.4 g/dL (3.2-5.0); Alkaline Phosphatase 78 U/L (45-117); Anion Gap 5 (5-15); BUN 17 mg/dL (7-18); BUN/Creat Ratio 22.7 RATIO (10-20); Chloride 106 mmol/L (98-107); Cholesterol 168 mg/dL (200); Creatinine, Serum 0.75 mg/dL (0.55-1.02); EST Glomerular Filtration Rate 80 mL/min (>60); Est Glom Filt Rate - Afr Amer 97 mL/min (>60); Globulin 4.2 g/dL (2.2-4.2); Glucose 87 mg/dL (74-106); High Density Lipoprotein 70 mg/dL; Protein, Total 7.6 g/dL (6.4-8.2); Sodium Level 139 mmol/L (136-145); Thyroid Stim Hormone (TSH) 1.09 uIU/mL (0.358-3.74); Triglycerides 103 mg/dL; Very Low Density Lipoprotein 21 mg/dL (5-40)
== END | disposition home or self-care (01) ==
LOC: POLAB3 15:49
PROVIDERS: PCP Family Medicine Geriatric Medicine; Visit Provider Family Medicine Geriatric Medicine
DX: I10 Essential (primary) hypertension (principal); E78.5 Hyperlipidemia, unspecified; E55.9 Vitamin D deficiency, unspecified
CPT/HCPCS: 36415; 80053; 80061; 82306; 84443; 85025

== ENCOUNTER → 2023-06-19 | Outpatient (CLI) | payer MEDICARE, SELFPAY ==
--- NOTE | 2023-06-19 13:57 | ECHOD_ITS ---
Reason For Study: SUPRAVENTRICULAR TACHYCARDIA Procedure This was a 2D Doppler, Color Flow transthoracic echocardiogram. The study was technically difficult. PT had her left lower extermity go numb due to back issues. Exam performed in department. Left Ventricle Normal LV size. Left ventricular systolic function is normal. The left ventricular ejection fraction is 65 %. No regional wall motion abnormalities noted. Right Ventricle Normal RV size. Normal systolic function. Atria Normal left atrium. Normal right atrium. Tricuspid Valve Normal tricuspid valve. Mild to moderate (1-2+) tricuspid valve insufficiency. Pulmonary artery systolic pressure is 35 mmHg. Aortic Valve Trisinus/trileaflet aortic valve. Moderate focal aortic valve calcification. Peak aortic valve gradient 34 mmHg. Mean aortic valve gradient 20 mmHg. Mild to moderate aortic stenosis. Mild (1+) aortic valve insufficiency. Pulmonic Valve Normal pulmonic valve. Great Vessels Normal aortic root. The pulmonary artery is normal size. Inferior vena cava collapse with respiration. Pericardium/Pleural No pericardial effusion. MMode/2D Measurements & Calculations LVIDd: 3.8 cm IVSd: 1.2 cm LVOT diam: 2.2 cm LVIDs: 2.3 cm LVPWd: 0.95 cm LVOT area: 3.9 cm2 RVDd: 2.9 cm FS: 39.4 % Ao root diam: 4.0 cm LAV(MOD-bp): 61.8 ml LVAd ap4: 27.2 cm2 LAV(MOD-bp) Indexed: 38.0 ml/m2 LVLd ap4: 7.8 cm LAV(MOD-sp2): 62.0 ml EDV(MOD-sp4): 77.6 ml LAV(MOD-sp4): 61.8 ml EDV(sp4-el): 80.1 ml LVAs ap4: 14.0 cm2 LVLs ap4: 6.6 cm ESV(MOD-sp4): 25.4 ml ESV(sp4-el): 25.2 ml EF(MOD-sp4): 67.2 % EF(sp4-el): 68.5 % SV(MOD-sp4): 52.2 ml SV(MOD-sp2): 52.8 ml LVAd ap2: 27.6 cm2 LVLd ap2: 8.3 cm EDV(MOD-sp2): 74.8 ml EDV(sp2-el): 77.6 ml LVAs ap2: 13.2 cm2 LVLs ap2: 6.7 cm ESV(MOD-sp2): 22.0 ml ESV(sp2-el): 22.1 ml EF(MOD-sp2): 70.5 % SV(sp4-el): 54.9 ml LA A4 area: 20.3 cm2 LA dimension(2D): 2.8 cm TAPSE: 2.2 cm RA A4 area: 11.1 cm2 Time Measurements MV dec time: 0.16 sec Doppler Measurements & Calculations MV E max madhu: 112.1 cm/sec Lat Peak E' Madhu: 10.3 cm/sec Med Peak E' Madhu: 6.5 cm/sec MV A max madhu: 78.7 cm/sec E/E' lat: 10.9 E/E' med: 17.2 MV E/A: 1.4 MV V2 max: 112.1 cm/sec MV P1/2t max madhu: 110.0 cm/sec Ao V2 max: 293.8 cm/sec MV max P.0 mmHg MV P1/2t: 50.6 msec Ao max P.6 mmHg MV V2 mean: 44.4 cm/sec MV dec slope: 637.5 cm/sec2 Ao V2 mean: 212.0 cm/sec MV mean P.1 mmHg Ao mean P.9 mmHg MV V2 VTI: 35.6 cm MVA(P1/2t): 4.4 cm2 Ao V2 VTI: 75.4 cm MVA(VTI): 2.2 cm2 AV (velocity ratio): 0.27 ODESSA(I,D): 1.1 cm2 ODESSA(V,D): 1.2 cm2 AI max madhu: 456.8 cm/sec LV V1 max: 89.9 cm/sec SV(LVOT): 79.3 ml AI max P.7 mmHg LV V1 max P.2 mmHg AI dec slope: 224.6 cm/sec2 LV V1 mean P.6 mmHg AI P1/2t: 595.8 msec LV V1 mean: 60.5 cm/sec LV V1 VTI: 20.1 cm PA V2 max: 152.1 cm/sec TR max madhu: 278.9 cm/sec PA V2 mean: 97.6 cm/sec TR max P.1 mmHg ECHO/Echo Complete Interpretation Summary Normal LV size. Left ventricular systolic function is normal. The left ventricular ejection fraction is 65 %. Mean aortic valve gradient 20 mmHg. Mild (1+) aortic valve insufficiency. Mild to moderate aortic stenosis. Ordering Physician: Ashley Ernst Referring Physician: Michael Snowden Chi Performed By: Roz Oquendo, FRIDA, RVT
== END | disposition home or self-care (01) ==
PROVIDERS: PCP Family Medicine Geriatric Medicine; Referring Provider Physician Assistant Medical; Visit Provider Physician Assistant Medical
DX: R01.1 Cardiac murmur, unspecified (principal); I47.10 Supraventricular tachycardia, unspecified; I35.0 Nonrheumatic aortic (valve) stenosis
CPT/HCPCS: 93306

== ENCOUNTER → 2023-09-09 | Outpatient (CLI) | payer MEDICARE, SELFPAY ==
[2023-09-09 18:02] LABS: Absolute Lymphocyte Count 1.36 X10^3/uL (0.83-4.51); Absolute Neutrophil Count 4.4 X10^3/uL (2.0-7.7); Basophil# 0.03 X10^3/uL; Basophil% 0.5 % (0-1); Eosinophil# 0.17 X10^3/uL; Eosinophils% 2.6 % (0-5); Hematocrit 42.3 % (37-47); Hemoglobin 13.7 g/dL (12.0-15.0); Lymphocyte # 1.36 X10^3/ul (0.83-4.51); Lymphocyte % 21.1 % (19-41); Mean Corp Hgb Conc 32.4 g/dL (32-36); Mean Corpuscular Hgb 32.5 pg (27.0-32.0); Mean Corpuscular Volume 100.2 fL (81-99); Mean Platelet Vol. 9.2 fl (6.2-12.0); Monocyte# 0.51 X10^3/uL; Monocyte% 7.9 % (0-10); NRBC Flagged by Analyzer 0 % (0-5); Neutrophil # 4.37 X10^3/uL (2.7-7.7); Neutrophil % 67.6 % (47-70); Platelet Count 223 K/mm3 (150-450); RBC Distribution Width CV 13.2 % (11.6-14.6); RBC Distribution Width SD 48.8 fl (35.1-43.9); Red Blood Count 4.22 M/mm3 (4.2-5.4); White Blood Count 6.5 K/mm3 (4.4-11.0)
[2023-09-09 18:27] LABS: Erythrocyte Sedimentation Rate 12 mm/hr (0-30)
[2023-09-09 19:01] LABS: Vitamin B12 1999 pg/mL (211-911)
[2023-09-09 19:12] LABS: ALB/GLOB Ratio 0.8 RATIO (0.9-2.4); AST(SGOT) 29 U/L (15-37); Alanine Aminotransfer ALT/SGPT 27 U/L (13-56); Albumin, Serum 3.7 g/dL (3.2-5.0); Alkaline Phosphatase 80 U/L (45-117); Anion Gap 3 (5-15); BUN 16 mg/dL (7-18); CRP < 2.90 mg/L (0.0-3.0); Calcium,Total 9.6 mg/dL (8.5-10.1); Chloride 104 mmol/L (98-107); Creatinine, Serum 0.73 mg/dL (0.55-1.02); EST Glomerular Filtration Rate 83 mL/min (>60); Est Glom Filt Rate - Afr Amer 100 mL/min (>60); Globulin 4.7 g/dL (2.2-4.2); Glucose 93 mg/dL (74-106); Potassium 4.2 mmol/L (3.5-5.1); Protein, Total 8.4 g/dL (6.4-8.2); Sodium Level 137 mmol/L (136-145); Thyroid Stim Hormone (TSH) 1.55 uIU/mL (0.358-3.74)
[2023-09-11 14:10] LABS: PROEL- Albumin 3.8 g/dL (2.9-4.4); PROEL- Alpha-1 Globulin 0.2 g/dL (0.0-0.4); PROEL- Alpha-2 Globulin 0.8 g/dL (0.4-1.0); PROEL- Beta Globulin 1.3 g/dL (0.7-1.3); PROEL- Gamma Globulin 1.6 g/dL (0.4-1.8); PROEL- Globulin, Total 3.9 g/dL (2.2-3.9); PROEL- TOTAL PROTEIN 7.7 g/dL (6.0-8.5); PROEL-M-Spike Not Observed g/dL (Not Observed)
== END | disposition home or self-care (01) ==
LOC: LABSPEC 17:45 → LAB 17:46
PROVIDERS: PCP Family Medicine Geriatric Medicine; Visit Provider Family Medicine Geriatric Medicine
DX: E87.1 Hypo-osmolality and hyponatremia (principal); I10 Essential (primary) hypertension; R53.83 Other fatigue
CPT/HCPCS: 36415; 80053; 82607; 84165; 84443; 85025; 85652; 86140

== ENCOUNTER 2023-09-22 14:00 | Outpatient (RCR) | payer MEDICARE, SELFPAY ==
--- NOTE | 2023-05-20 08:12 | HP.PTEVAL_ITS ---
Patient's Visit Information Visit Information Visit Information: JUWAN DAVIES is a 77 year old F referred to Physical Therapy by Dr. Gaetano Cleary DO with a diagnosis of L knee OA. Date of Evaluation: 05/19/23 Physical Therapist: Geo Phillip, PT, ATC Visit Plan Frequency: 2-3x /Week Duration: 4-6 Weeks Plan: L LE strengthening, core stab ex's, balance and proprio, nustep, and HEP Subjective Subjective: Pt reports she has had L knee pain for approximately one month. Pt notes her pain had an insidious onset in nature. Pt reports she just woke up one morning and pain was there. Pt reports she had L TKA in 2004. Pt reports she has had x-rays which revealed OA. Pt reports her pain was severe a couple weeks ago, but has steadily declined since. Pt reports this causes her a lot of pain while she is attempting to negotiate stairs. Pt reports she has numbness in her feet secondary to peripheral neuropathy. Pt notes she is unable to ambulate far at this time secondary to pain. Pt reports she has sleep difficulty at this time secondary to pain. 6/10 pain while sitting here in the clinic, 8/10 pain at worst. Pt reports it feels like her L knee is going to pop out at times. Occasional sleep difficulty secondary to pain Pain L knee pain: Pain Intensity (Out of 10): 6 Pain Intensity Range: 8 Objective Objective: Neuro: B L3 dermatone is numb to light touch ROM: L knee 0-105, R knee 0-110 degrees MMT: L knee flex= 20, ext= 19 #F; R knee flex= 20, ext= 25 #F Gait: Pt is able to walk approximately 140 feet with WW until requesting to rest due to fatigue Palpation: Pos apley compression test Balance/Special Test Scores Lower Extremity Functional Score: 15 Goals Goal 1:: Decrease L knee pain x 50% to aid with increasing tolerance of ambulation Goal Time Frame: 4-6 Weeks Goal 2:: Increase L knee ext strength x 10 #F to aid with stair negotiation Goal Time Frame: 4-6 Weeks Goal 3:: Pt will be able to ambulate greater than 340 feet with WW to improve tolerance for community ambulation Goal Time Frame: 4-6 Weeks Goal 4:: I with HEP Goal Time Frame: 4-6 Weeks Rehabilitation Potential Physical Therapy Diagnosis: Pt has L knee pain, weakness, and limited ROM secondary to L knee OA Rehabilitation Potential: Good Anticipated Interventions Patient/Client Instruction: Educate patient on: Condition and Plan of Care For the Purpose of:: To improve self management Therapeutic Exercise to Include: Strength training, Endurance training, Balance training, Gait and locomotor training, Active ROM and Dynamic Lumbar Stabilization For the Purpose of:: To decrease pain, To increase ROM and To improve muscle performance and motor function Text: Thank you for the opportunity to evaluate your patient. For Medicare and Medicare HMO plans, please review the plan of care and approve it. It will need to be FAXED BACK to us at [phone] for Medicare purposes. For Medicare only, by signing this I certify the plan of care. Please let me know if there are questions or concerns regarding this plan of care. Physician Signature: Date:
--- NOTE | 2023-06-20 16:00 | HP.PTREVAL_ITS ---
Re-Evaluation Intro: Dr. Gaetano Cleary, DO, It has been my pleasure to treat JUWAN DAVIES over the last 8 visits for L knee OA. Please see the progress note below for an update on the physical therapy plan of care! Subjective Subjective: I feel like I have improved. I need more work on my balance Objective Objective/Function: L knee pain is 5/10 at worst L knee MMT: flex= 29, ext= 21 #F Pt is able to ambulate approximately 300 feet until Pt can negotiate 10 stairs, one at a time, with 2 handrails Pt is still very limited with functional activity at this time. Plan Plan Plan: Attempt to get 12 more sessions to focus on strength, balance, and gait Balance/Gait/Functional tests Balance/Special Test Scores Lower Extremity Functional Score: 23 Goals Goals Goal 1:: Decrease L knee pain x 50% to aid with increasing tolerance of ambulation Goal Time Frame: 4-6 Weeks Goal Progress: Progressing Goal 2:: Increase L knee ext strength x 10 #F to aid with stair negotiation Goal Time Frame: 4-6 Weeks Goal Progress: Progressing Goal 3:: Pt will be able to ambulate greater than 340 feet with WW to improve tolerance for community ambulation Goal Time Frame: 4-6 Weeks Goal Progress: Progressing Goal 4:: I with HEP Goal Time Frame: 4-6 Weeks Goal Progress: Progressing Anticipated Interventions Anticipated Interventions Patient/Client Instruction: Educate patient on: Condition and Plan of Care For the Purpose of:: To improve self management Therapeutic Exercise to Include: Strength training, Endurance training, Balance training, Gait and locomotor training, Active ROM and Dynamic Lumbar Stabiliz ation For the Purpose of:: To decrease pain, To increase ROM and To improve muscle performance and motor function Re-Evaluation Ending Re-evaluation ending: Please do not hesitate to contact me at [phone] by phone or if you have questions or concerns regarding this new plan of care! Sincerely, Geo Phillip, PT, ATC
--- NOTE | 2023-09-22 16:11 | HP.PTDCSUM_ITS ---
Discharge Summary D/C summary: It has been my pleasure to treat JUWAN DAVIES referred by Dr. Gaetano Cleary DO, with the diagnosis of L knee OA for a total of 25 visit(s). Discharge Date: 09/22/23 Please see the following information for a summary of their discharge status. Subjective Subjective: I want to come to therapy for my social life. Last few weeks exercises have not been helping. Numbness in arms and legs is worsening. has no neurologist. Will have MRIs of spine and brain next week due to this. Will have NCT of arms and legs in the next couple weeks. Thinks exercises help a little but less so lately. HEP:Marches at walker, walk room to room, sit to stand on toilet ADLS, Sister helps get meals due to numbness in hands.Bathroom self, sister helps in the shower for safety which is walk in 3 inch step over. Dresses self, walking:with wh walker 100% of time. sits in chair with arms. steps: One step to get in with no railing, sister helps with walker sleep: OK Knee is not painful this weekend. Has OA. was getting around better at first but then felt drained and that is why she is eeing Dr. Snowden and having all of this testing. Pt states she roque refused treatment for the inflammation in her sarcoidosis as well as anxiety meds as she does not like to take meds. Pain L knee pain: Pain Intensity (Out of 10): 0 Overall Improvement % Improvement: 50 Objective Objective/Function: Wants chair with arms to sit and scared otherwise but sits safely in non arm chair. Plops a little bit. L knee quad 35# and HS 32#over 10# improved. LEFS -10 from day one. sit to stadn without UE I but doesn't believe she can do it and very anxiety prone sitting in chair without UE. Unwilling to attempt walking without wh walker. nervousness makes her have to go to bathroom. walks with wh walker, no antalgia, short steps and limited confidence but able, Pt needed to use bathroom with sisters help 1/2 way in and took 15 minutes of time. B LE below knee with poor coordination and sensation to gross light touch. Poor proprioceptiona nd confidence with their movement and balance. LEFS is 10 points worse than eval appearing to be mostly due to fear and neuropathy worsening lately despite consistent therapy. Pts knees are much better and not a limiting factor. Her main complaint is the unsteadiness which seems to be stemming mostly from her neuropathy which they are trying to get to the bottom of with NCT and MRI over the next month. Contributing factors to her poor mobility are anxiety and fear limiting willingness to work even in therapy on challenging activiites AND poor motivation to exercise at home and sedentary lifestyle. Goals Goal 1:: Decrease L knee pain x 50% to aid with increasing tolerance of ambulation Goal Progress: Goal Met Goal 2:: Increase L knee ext strength x 10 #F to aid with stair negotiation Goal Progress: Goal Met Goal 3:: Pt will be able to ambulate greater than 340 feet with WW to improve tolerance for community ambulation Goal Progress: Not Progressing Goal 4:: I with HEP Goal Progress: unmotivated.no progress Plan Plan: With knees doing well and considering motivation and fear and neuroapthy factors in mobility as well as I with wh walker in the activities she needs to do, recommend D/C PT and see how testing goes for reasons of finding cause of neuropathy. Pt preferred waiting to more therapy consisting of chalenging fear and functional activities in therapy and working toward more aggressive HEP. D/C Information Discharge Comments: See above objective. Happy to see again in futre with fu rther clarification of neuropathy role in her balance which seems to be the main factor. Also could use more motivation for HEp and I management which fear and anxiety are playing a role in. d/c sentence: If there are questions or concerns regarding this patient's physical therapy, please feel free to call me at [phone]. Thank you for the referral of this patient. Sincerely, Prieto Cueva, DPT, OCS, CSCS Balance/Gait/Functional tests Balance/Special Test Scores Lower Extremity Functional Score: 13 Improvement % Improvement: 50
== END 2023-09-22 19:00 | disposition home or self-care (01) ==
LOC: PT 14:00
PROVIDERS: PCP Family Medicine Geriatric Medicine; Referring Provider Orthopaedic Surgery; Visit Provider Orthopaedic Surgery
DX: M17.12 Unilateral primary osteoarthritis, left knee
CPT/HCPCS: 97110; 97112; 97161; 97164

== ENCOUNTER → 2023-09-30 | Outpatient (CLI) | payer MEDICARE, SELFPAY ==
--- NOTE | 2023-09-30 07:05 | MRI_ITS ---
STUDY: MRI CERVICAL SPINE WITHOUT CONTRAST REASON FOR EXAM: Female, 77 years old. DIZZINESS,WEAKNESS, NUMBNESS PRIOR CT HEAD 2019 TECHNIQUE: Standardized fat and water weighted pulse sequences were obtained in the sagittal and axial planes. COMPARISON: None FINDINGS: Normal foramen magnum and brainstem-cervical cord junction. Normal craniovertebral junction. Normal anterior atlantoaxial articulation. Normal odontoid process. Normal cervical lordosis. Normal vertebral bodies and posterior osseous elements. C2-3: Normal endplates. Normal disc height, signal and morphology. Normal central canal and intervertebral neural foramina. C3-4: Severe disc space narrowing with a minor disc spur complex. Normal central canal and right neural foramen. Moderate left foraminal stenosis with nerve root compression due to uncovertebral facet joint hypertrophy. C4-5: Severe disc space narrowing with a minor disc spur complex. Normal central canal and right neural foramen. Moderate to severe bilateral foraminal stenosis with nerve root compression due to uncovertebral facet joint hypertrophy. C5-6: Complete bony fusion across the intervertebral disc space with severe narrowing. Normal central canal. Mild to moderate bilateral foraminal stenosis with nerve root compression due to uncovertebral facet joint hypertrophy. C6-7: Severe disc space narrowing with a minor disc spur complex causing mild compression on anterior aspect of cord and [id number] central canal stenosis. Mild bilateral foraminal stenosis due to uncovertebral hypertrophy. C7-T1: Severe disc space narrowing with a minimal disc spur complex. Normal central canal and intervertebral neural foramina. 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 Normal visualized soft tissue structures. MRI/Spine Cervical (Routine) IMPRESSION: 1. Multilevel degenerative changes, as described above. 2. 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 Likely due to chronic compression or a chronic developmental process versus posterior cord spinal tracts subacute combined degeneration or similar entity. Correlate with the patient''s underlying serologic values. Electronically Signed: Aaron Mckenna MD at 15:55 EDT ,
--- NOTE | 2023-09-30 07:05 | MRI_ITS ---
EXAM: MR THORACIC SPINE WITHOUT INTRAVENOUS CONTRAST CLINICAL INDICATION: DIZZINESS,WEAKNESS, NUMBNESS TECHNIQUE: Multiplanar and multisequence MR images of the thoracic spine without intravenous contrast. COMPARISON: No relevant prior studies available. FINDINGS: VERTEBRAE: Multiple chronic appearing compression deformities of the thoracic vertebral bodies noted. There is preservation of the normal thoracic kyphosis. Minor levoscoliosis of the upper thoracic spine. DISCS/SPINAL CANAL/NEURAL FORAMINA: Mild spinal stenosis at the T12-L1 level related to the prominent chronic fracture deformity of L1. Prominent multilevel disc space narrowing. No disc herniation. No thoracic spinal stenosis. Neural foraminal narrowing present bilaterally at the T9-10 level and on the left at T7-8 and T8-9. Related to vertebral body hypertrophy and facet arthropathy. SPINAL CORD: Normal. Normal in signal and morphology. Normal conus medullaris. SOFT TISSUES: Normal. MRI/Spine Thoracic (Routine) IMPRESSION: 1. Multilevel chronic compression deformities of the thoracic vertebral bodies. 2. No spinal stenosis at the thoracic level. 3. Multilevel neural foraminal narrowing related to bony hypertrophy. Electronically Signed: Javier Cornejo MD at 16:52 EDT ,
--- NOTE | 2023-09-30 07:05 | MRI_ITS ---
STUDY: MRI BRAIN WITHOUT CONTRAST REASON FOR EXAM: Female, 77 years old. DIZZINESS,WEAKNESS, NUMBNESS TECHNIQUE: Standardized multiplanar fat and water weighted pulse sequences were obtained. COMPARISON: Head CT dated April 06, 2019 FINDINGS: There is mild cerebral atrophy with widening of the extra-axial spaces and ventricular dilatation. There are a limited number of small white matter hyperintensities, distributed throughout the deep white matter tracts of the cerebral hemispheres, consistent with mild chronic white matter ischemic changes. There are no demyelinating plagues of the supratentorial brain, brainstem or cerebellum. There are no findings suspicious for multiple sclerosis (MS). There is no evidence for recent intracranial ischemia or other cause of cytotoxic edema on diffusion weighted imaging (DWI). Normal T2* images of the brain without demonstrated susceptibility artifact. There is no demonstrated hemosiderin stain. Redemonstration of focal volume loss in the anterior left temporal fossa either due to prior trauma or prior ischemia Normal bilateral basal ganglia. Normal thalami. There is no extra-axial fluid accumulation. Normal flow voids within the major intracranial circulation suggesting patency by spin echo criteria. Normal sella turcica, pituitary gland, infundibular stalk, optic chiasm and hypothalamus. Normal tectal plate and pineal gland. Normal midbrain, gopi and medulla. Normal cerebellum. Normal basal cisterns. Normal bilateral temporal bones. Normal bilateral internal auditory canals. No demonstrated orbital abnormality, within the constraints of a routine brain study. Normal visualized paranasal sinuses. Normal calvarium and skull base. Normal visualized soft tissue structures. Normal visualized upper cervical spine. MRI/Brain without Contrast IMPRESSION: 1. Involutional and chronic ischemic changes of the brain, as described above. 2. No demonstrated acute infarct or intracranial hemorrhage. Electronically Signed: Aaron Mckenna MD at 15:19 EDT Reading Location ID and State: [facility] / [place] , Service support ,
--- NOTE | 2023-09-30 07:05 | MRI_ITS ---
STUDY: MRI LUMBAR SPINE WITHOUT CONTRAST REASON FOR EXAM: Female, 77 years old. DIZZINESS,WEAKNESS, NUMBNESS -- 2019 TECHNIQUE: Standardized fat and water weighted pulse sequences were obtained in the sagittal and axial planes. COMPARISON: X-ray the lumbar spine dated July 10, 2018 FINDINGS: Chronic L5 pars interarticularis defects with anterolisthesis of L5 on S1 of 1.22 cm. Chronic compression deformities of T12-L1 vertebral bodies with moderate loss of height. No acute marrow edema is present. Transitional anatomy is present with lumbarization of the S1 vertebral body and disc space. Normal lumbar lordosis. There is no substantial scoliosis. Normal conus medullaris that terminates at the L1-2: Small central Schmorl''s node. Disc desiccation. Normal disc height and morphology. Mild facet joint hypertrophy. Normal central canal and bilateral lateral recesses. Normal bilateral intervertebral neural foramina. L2-3: Normal endplates. Disc desiccation. Normal disc height and morphology. Mild facet joint hypertrophy. Normal central canal and bilateral lateral recesses. Normal bilateral intervertebral neural foramina. L3-4: Normal endplates. Disc desiccation. Normal disc height and morphology. Mild facet joint hypertrophy. Normal central canal and bilateral lateral recesses. Normal bilateral intervertebral neural foramina. L4-5: Normal endplates. Diffuse disc desiccation with mild disc space narrowing but no bulging or herniation of the disc. Mild facet joint hypertrophy. Normal central canal and bilateral lateral recesses. Severe bilateral foraminal stenosis with nerve root compression. L5-S1: Severe disc space narrowing. Anterior disc bulging. Anterolisthesis of L5 on S1 of 1.22 cm. Moderate facet joint hypertrophy contributing to mild central canal stenosis. Severe bilateral foraminal stenosis with nerve root compression. Normal visualized sacral ala. There is moderate paraspinal muscular atrophy. MRI/Spine Lumbar (Routine) IMPRESSION: 1. Multilevel degenerative changes, as described above. 2. Severe bilateral foraminal stenosis with nerve root compression at L5-S1 3. Significant anterolisthesis of L5 on S1 of 1.22 cm with chronic bilateral L5 pars interarticularis defects. Electronically Signed: Aaron Mckenna MD at 15:28 EDT ,
== END | disposition home or self-care (01) ==
PROVIDERS: PCP Family Medicine Geriatric Medicine; Referring Provider Family Medicine Geriatric Medicine; Visit Provider Family Medicine Geriatric Medicine
DX: R20.0 Anesthesia of skin (principal); R53.1 Weakness; R42 Dizziness and giddiness
CPT/HCPCS: 70551; 72141; 72146; 72148

== ENCOUNTER → 2023-10-08 | Outpatient (CLI) | payer MEDICARE, SELFPAY ==
--- NOTE | 2023-10-08 15:31 | NEURO ---
NCS and/or EMG Patient Report Ordering Doctor: Michael Snowden Chi DATE OF SERVICE: 10/08/23 Lizette presents for electrodiagnostic testing of the lower limbs she reports bilateral leg weakness and pain. She has lower back pain. Electrodiagnostic findings: Left peroneal motor nerve demonstrates normal distal latency, amplitude and conduction velocity. Right peroneal motor nerve demonstrates normal distal latency with reduced amplitude and normal conduction velocity. Left tibial motor nerve demonstrates normal distal latency with reduced amplitude normal conduction velocity. Right tibial motor nerve demonstrates normal distal latency with reduced amplitude and conduction velocity. Normal tibial and peroneal F waves. H reflex normal bilaterally. Sensory responses are within normal limits. Needle EMG testing was performed the lower limbs. All muscles tested showed no evidence of denervation with normal motor unit action potentials. Electrodiagnostic impression: This is an abnormal study in the lower limbs 1. 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 2. No electrodiagnostic evidence for lumbosacral radiculopathy Multi Select Codes Neurology Neurology Interp Codes: 09415-72 Musc test done w/n test comp (interp) (2) and 70450-66 Nrv cndj test 9-10 studies (interp)
== END | disposition home or self-care (01) ==
LOC: PSN 12:21
PROVIDERS: PCP Family Medicine Geriatric Medicine; Referring Provider Family Medicine Geriatric Medicine; Visit Provider Family Medicine Geriatric Medicine
DX: R20.0 Anesthesia of skin (principal); R53.1 Weakness; R42 Dizziness and giddiness
CPT/HCPCS: 95886; 95911

== ENCOUNTER → 2023-10-29 | Outpatient (CLI) | payer MEDICARE, SELFPAY ==
--- NOTE | 2023-10-29 14:44 | NEURO ---
NCS and/or EMG Patient Report Ordering Doctor: Michael Snowden Chi DATE OF SERVICE: 10/29/23 Chaparrita presents presents with complaints of pain and numbness in both arms and hands. Electrodiagnostic findings: Left median motor nerve demonstrates normal distal latency with reduced amplitude and normal conduction velocity. Right median motor nerve demonstrates prolonged latency with reduced amplitude and normal conduction velocity. Ulnar motor responses within normal limits bilaterally. Prolonged right median sensory latency at the wrist. Needle EMG testing was performed the upper limbs the left triceps, left flexor carpi ulnaris and left lower cervical paraspinals demonstrated fibrillation potentials. Motor unit action potentials normal amplitude and duration. Electrodiagnostic impression: This is an abnormal study. 1. Electrodiagnostic findings consistent with acute left C7 radiculopathy. Consider correlation with cervical spine imaging. 2. Electrodiagnostic findings suggestive of right-sided median mononeuropathy. This is consistent with a mild right carpal tunnel syndrome. Multi Select Codes Neurology Neurology Interp Codes: 09891-32 Musc test done w/n test comp (interp) (2) and 69770-40 Nrv cndj test 9-10 studies (interp)
== END | disposition home or self-care (01) ==
LOC: PSN 13:36
PROVIDERS: PCP Family Medicine Geriatric Medicine; Referring Provider Family Medicine Geriatric Medicine; Visit Provider Family Medicine Geriatric Medicine
DX: R20.0 Anesthesia of skin (principal); R42 Dizziness and giddiness; R53.1 Weakness
CPT/HCPCS: 95886; 95911

== ENCOUNTER → 2023-12-15 | Outpatient (CLI) | payer MEDICARE, SELFPAY ==
[2023-12-15 16:24] LABS: Absolute Lymphocyte Count 1.16 X10^3/uL (0.83-4.51); Absolute Neutrophil Count 3.8 X10^3/uL (2.0-7.7); Basophil# 0.04 X10^3/uL; Basophil% 0.7 % (0-1); Eosinophil# 0.12 X10^3/uL; Eosinophils% 2.1 % (0-5); Hematocrit 40.5 % (37-47); Hemoglobin 12.8 g/dL (12.0-15.0); Lymphocyte # 1.16 X10^3/ul (0.83-4.51); Lymphocyte % 20.4 % (19-41); Mean Corp Hgb Conc 31.6 g/dL (32-36); Mean Corpuscular Hgb 31.7 pg (27.0-32.0); Mean Corpuscular Volume 100.2 fL (81-99); Mean Platelet Vol. 9.3 fl (6.2-12.0); Monocyte# 0.53 X10^3/uL; Monocyte% 9.3 % (0-10); NRBC Flagged by Analyzer 0 % (0-5); Platelet Count 213 K/mm3 (150-450); RBC Distribution Width SD 48.1 fl (35.1-43.9); Red Blood Count 4.04 M/mm3 (4.2-5.4); White Blood Count 5.7 K/mm3 (4.4-11.0)
[2023-12-15 17:13] LABS: Vitamin D,25 Hydroxy 68.6 ng/mL
[2023-12-15 17:16] LABS: ALB/GLOB Ratio 0.8 RATIO (0.9-2.4); AST(SGOT) 20 U/L (15-37); Alanine Aminotransfer ALT/SGPT 22 U/L (13-56); Albumin, Serum 3.4 g/dL (3.2-5.0); Alkaline Phosphatase 76 U/L (45-117); Anion Gap 6 (5-15); BUN 20 mg/dL (7-18); BUN/Creat Ratio 25.6 RATIO (10-20); Calcium,Total 9.4 mg/dL (8.5-10.1); Chloride 103 mmol/L (98-107); Cholesterol 176 mg/dL (200); Creatinine, Serum 0.78 mg/dL (0.55-1.02); EST Glomerular Filtration Rate 76 mL/min (>60); Est Glom Filt Rate - Afr Amer 92 mL/min (>60); Globulin 4.2 g/dL (2.2-4.2); Glucose 100 mg/dL (74-106); High Density Lipoprotein 74 mg/dL; Potassium 4.2 mmol/L (3.5-5.1); Protein, Total 7.6 g/dL (6.4-8.2); Sodium Level 138 mmol/L (136-145); Thyroid Stim Hormone (TSH) 0.871 uIU/mL (0.358-3.740); Triglycerides 46 mg/dL; Very Low Density Lipoprotein 9 mg/dL (5-40)
== END | disposition home or self-care (01) ==
LOC: LAB 15:34
PROVIDERS: PCP Family Medicine Geriatric Medicine; Referring Provider Family Medicine Geriatric Medicine; Visit Provider Family Medicine Geriatric Medicine
DX: I10 Essential (primary) hypertension (principal); E78.5 Hyperlipidemia, unspecified; E55.9 Vitamin D deficiency, unspecified
CPT/HCPCS: 36415; 80053; 80061; 82306; 84443; 85025

== ENCOUNTER → 2024-01-08 | Outpatient (CLI) | payer MEDICARE, SELFPAY ==
--- NOTE | 2024-01-08 15:22 | BD_ITS ---
STUDY: DUAL ENERGY X-RAY ABSORPTIOMETRY / DXA REASON FOR EXAM: Female, 78 years old. 627.8Menopausal postmenopausal BONE DENSITY REASON FOR EXAM TECHNIQUE: Bone Mineral Density (BMD) measurements of both forearms were obtained. COMPARISON: None. FINDINGS: Right Forearm: g/cm2 (0.594) / T-score (-1.6) / Z-score (1.2) Left Forearm: g/cm2 (0.537) / T-score (-0.8) / Z-score (2.0) BD/Dexa Bone Density/Append Skel IMPRESSION: The patient is considered osteopenic as outlined below according to World Philip Organization (WHO) criteria with a moderate fracture risk. Reference Information: The T-score is the number of standard deviations above or below the standard which is normal for young adults at their peak bone mineral density. The World Health Organization (WHO) interprets the T-scores as follows: Above -1 Normal bone density Between -1 and -2.5 Osteopenia Equal to / or below -2.5 Osteoporosis As a practical clinical guideline, osteopenia may be graded as follows: Mild -1 through -1.5 Moderate -1.6 through -2.0 Severe -2.1 through -2.4 The Z-score is the number of standard deviations above or below age-matched controls. A Z-score of less than -1.5 would be considered abnormal. References: 1. NIH Osteoporosis and Related Bone Diseases www osteo.org 2. International Society for Clinical Densitometry www iscd.org 3. National Osteoporosis Foundation www nof.org Electronically Signed: Bebo Oseguera MD at 12:08 EDT ,
== END | disposition home or self-care (01) ==
PROVIDERS: PCP Family Medicine Geriatric Medicine; Referring Provider Family Medicine Geriatric Medicine; Visit Provider Family Medicine Geriatric Medicine
DX: Z78.0 Asymptomatic menopausal state (principal); M85.80 Other specified disorders of bone density and structure, unspecified site
CPT/HCPCS: 77081

== ENCOUNTER 2024-02-25 14:26 | Emergency (ER) | payer MEDICARE, SELFPAY ==
[2024-02-25 14:27] VITALS: BP 157/94; PULSE 67; RESP 17; TEMP 36.8; O2SAT 94
--- NOTE | 2024-02-25 14:48 | CT_ITS ---
INDICATION: Trauma, injury. EXAMINATION: CT CERVICAL SPINE - CT Spine Cervical W/O Contrast Injection TECHNIQUE: Helically acquired images were obtained of the cervical spine. 2D reformatted images were reviewed. A radiation dose optimization technique was used for this scan. IV Contrast dosage and agent: None. COMPARISON: Cervical spine series 11/13/2023 FINDINGS: VERTEBRAE: No acute fracture of the cervical spine. Stable 2 mm spondylolisthesis C2-3, 4 mm spondylolisthesis C3-4, 3 mm spondylolisthesis C4-5. DISCS and SPINAL CANAL: Stable degenerative changes. No critical stenosis. NECK SOFT TISSUES: No prevertebral soft tissue swelling. LUNG APICES: No acute pulmonary findings. CT/Spine Cervical without Contras IMPRESSION: Stable degenerative changes. No acute fracture of the cervical spine. Electronically Signed: Luciano Henao MD at 16:30 EST ,
--- NOTE | 2024-02-25 14:48 | CT_ITS ---
INDICATION: Trauma, injury EXAMINATION: CT BRAIN - CT Head or Brain W/O Contrast Injection TECHNIQUE: Multiple axial images were obtained of the head without intravenous contrast. A radiation dose optimization technique was used for this scan. IV Contrast dosage and agent: None. COMPARISON: 04/06/2019 FINDINGS: BRAIN PARENCHYMA: No intra- or extra-axial hemorrhage. No acute territorial infarction. Stable left temporal encephalomalacia. No intracranial mass or mass effect. There is preservation of the ham/white matter interface. Posterior fossa structures are unremarkable. Stable volume loss with low attenuation of the periventricular white matter typical of chronic small vessel disease. CSF SPACES: Stable. No hydrocephalus. Basal cisterns are patent. CALVARIUM, SKULL BASE, PARANASAL SINUSES AND MASTOID AIR CELLS: Clear. No acute fracture. Large left fronto-temporal cephalhematoma. CT/Brain/Head without Contrast IMPRESSION: Volume loss with chronic white matter changes. No acute intracranial findings. Electronically Signed: Luciano Henao MD at 16:20 EST ,
--- NOTE | 2024-02-25 14:55 | EX.ED.GENINJ ---
HPI History of Present Illness Chief Complaint: Head Injury Informant: patient, friend and EMS Narrative Narrative: 78-year-old female presenting to the emergency room with head injury. Patient was attempting to go to physical therapy when she went to reach for the door restaurant fled and open the door and she fell forward. She is going to physical therapy due to balance issues. She struck her head she believes on the door causing swelling to the left forehead and abrasion to the left temporal area. She states her neck is sore. She has chronic neck pain however. She is not on anticoagulants. Tetanus Immunization: Unknown [facility] Medical History Dyskinesia of esophagus COVID-19 virus infection (04/10/21) History of non-ST elevation myocardial infarction (NSTEMI) (02/16/15) Encephalopathy Syncope and collapse Nonrheumatic aortic (valve) stenosis Essential (primary) hypertension GERARDO (obstructive sleep apnea) Osteoarthritis Myelopathy Spinal cord lesion Upper GI bleed Obesity (BMI 30-39.9) Home Medications ?Medication ?Instructions ?Recorded ?Last Taken ?Type metoprolol succinate 50 mg 50 mg PO BID blood pressure #60 08/27/17 04/06/19 09:00 Rx tablet,extended release 24 hr tabs cholecalciferol (vitamin D3) 125 5,000 unit PO DAILY Supplement 04/03/19 04/06/19 History mcg (5,000 unit) capsule folic acid 1 mg tablet 1 mg PO DAILY Supplement 04/03/19 04/06/19 14:00 History vitamin B complex 1 ea PO DAILY Supplement 04/03/19 04/06/19 14:00 History acetaminophen 500 mg tablet 1,000 mg (2 x 500 mg) PO Q6H PRN 04/26/19 Unknown Rx PRN Pain Score 1-10/10 magnesium 250 mg tablet 400 mg PO DAILY Supplement 01/06/23 Unknown History amlodipine 2.5 mg tablet 2.5 mg PO BID blood pressure 05/09/23 Unknown History Allergy/AdvReac Type Severity Reaction Status Date / Time hydrochlorothiazide Allergy Intermediate low sodium Verified 02/25/24 14:27 atorvastatin (From Lipitor) Allergy Unknown Verified 02/25/24 14:27 doxazosin (From Cardura) Allergy Other Verified 02/25/24 14:27 lisinopril Allergy Angioedema Verified 02/25/24 14:27 amlodipine (From Norvasc) AdvReac Severe Freezes up Verified 02/25/24 14:27 limbs nifedipine (From Nifedical AdvReac Severe Freezes up Verified 02/25/24 14:27 XL) limbs alendronate sodium (From AdvReac Intermediate GI upset Verified 02/25/24 14:27 Fosamax) codeine AdvReac Unknown Verified 02/25/24 14:27 ibuprofen AdvReac Other Verified 02/25/24 14:27 Family History Father Hypertension Aortic aneurysm Mother Hypertension Sister Hypertension Diabetes Surgical History Status post surgical removal of malignant neoplasm of skin History of cataract extraction Hx of LASIK Status post right foot surgery History of bunionectomy of right great toe History of tonsillectomy History of tonsillectomy History of total right knee replacement History of total left knee replacement History of arthroplasty of right knee Social History household members: caregiver housing: [facility] pets and animals: No Smoking Status: Never smoker alcohol intake: never substance use type: does not use caffeine: No what type of physical activity do you participate in: none seatbelt use: always do you feel safe at home: Yes ROS ROS ED Constitutional Constitutional ED: Denies chills, fever(s) or weight loss Eyes Eyes: Denies change in vision or diplopia ENT ENT ED: Denies ear pain, rhinorrhea or sore throat Cardiovascular Cardiovascular: Denies chest pain, orthopnea, palpitations or racing heartbeat Respiratory/Chest Respiratory/Chest: Denies cough, dyspnea or orthopnea Gastrointestinal Gastrointestinal: Denies abdominal pain, diarrhea, nausea or vomiting Genitourinary Genitourinary ED: Denies dysuria, hematuria or urinary frequency Musculoskeletal Musculoskeletal: Reports neck pain; Denies arthralgias or myalgias Integumentary Reports Abrasions; Denies abscess or rash Neurologic Neurologic: Reports headache(s); Denies weakness Psychiatric Psychiatric: Denies anxiety, depression, suicidal ideation or suicidal thoughts Endocrine Endocrinology: Denies polydipsia, polyphagia or polyuria Allergic/Immunologic Allergic/Immunologic ED: Denies mouth swelling, tongue swelling or urticaria EXAM Physical Exam Const Vital Signs: 02/25/24 14:27 02/25/24 14:30 Temperature 98.2 F Temperature Source Oral Pulse Rate 67 Respiratory Rate 17 Respiratory Effort Normal Respiratory Depth Normal Respiratory Pattern Normal Blood Pressure 157/94 H Blood Pressure Mean 115 Pulse Ox 94 Oxygen Delivery Method Room Air Positive well nourished and well developed General Appearance ED: well developed HEENT Reports normocephalic and moist mucous membranes HEENT Narrative: Left forehead hematoma there is 1/2 cm triangular superficial abrasion/skin tear to the left temporal area. No active bleeding. No palpable bony depressions. Eyes PERRL and EOMs intact bilaterally Neck full ROM, no lymphadenopathy, supple and no JVD Neck Narrative: Generalized soreness to the neck Resp normal respiratory effort and clear to auscultation bilaterally Cardio regular rate, regular rhythm and no murmurs GI normal to inspection, nondistended, normoactive bowel sounds and non-tender Palpation: soft Back/Spine no CVA tenderness and normal ROM Extremity normal to inspection General Extremety ED: Negative for edema General Extremity: Negative for edema Neuro oriented x3 and CN's II-XII intact bilaterally Sensorium / Orientation: alert Motor Exam: strength 5/5 throughout Psych mental status grossly normal Mood & Affect: anxious; Negative for depressed or tearful Skin no rashes or lesions noted MDM MDM MDM Narrative Medical decision making narrative: Differential diagnosis includes but not limited to skull fracture intracranial hemorrhage laceration neck fracture cervical myofascial strain The wound was washed with Shur-Clens and explored. It is very superficial in nature and the skin that remains is very thin. I was able to smooth it out much like a skin tear and then Dermabond in place. CT of the head and cervical spine was obtained. This is negative for acute fracture or intracranial hemorrhage. No ice was applied because the patient is very cold and does not wish any at this time. History & Record Review Discussion w/independent historian: Patient and Family Radiography Diagnostic Testing: Clinical Impression(s) from Imaging Studies Brain CT 02/25/24 14:48 IMPRESSION: Volume loss with chronic white matter changes. No acute intracranial findings. Electronically Signed: Luciano Henao MD at 16:20 EST , Cervical Spine CT 02/25/24 14:48 IMPRESSION: Stable degenerative changes. No acute fracture of the cervical spine. Electronically Signed: Luciano Henao MD at 16:30 EST , Discharge Plan Triage Chief Complaint: Head Injury ED Provider: Fahad Martinez Dx/Rx/DC Orders Clinical Impression: Fall, Traumatic hematoma of forehead, Laceration of scalp, Acute cervical myofascial strain Instructions: ED Head Injury (Adult), ED Hematoma Prescriptions: No Action amlodipine 2.5 mg tablet 2.5 mg PO BID metoprolol succinate 50 MG tablet 50 mg PO BID Qty: 60 0RF vitamin B complex 1 EACH tablet 1 ea PO DAILY folic acid 1 MG tablet 1 mg PO DAILY cholecalciferol (vitamin D3) 5,000 UNIT capsule 5,000 unit PO DAILY magnesium 250 mg tablet 400 mg PO DAILY acetaminophen 500 MG tablet 1,000 mg PO Q6H PRN PRN (Reason: Pain Score 1-10/10) 0RF Primary Care Provider: Michael Snowden Chi Referrals: Michael Snowden Chi, MD [Primary Care Provider] - 1 Week if not improving Print Language: Portuguese Disposition Disposition: Home, Self Care
[2024-02-25] MEDS: Diphth,Pertuss(Acell),Tet Vac 0.5 ML Vial IM (15:27)
[2024-02-25 16:26] VITALS: BP 153/95; PULSE 68; RESP 18; O2SAT 95
[2024-02-25 16:35] VITALS: BP 153/95; PULSE 68; RESP 18; TEMP 36.6; O2SAT 95
== END 2024-02-25 17:16 | disposition home or self-care (01) ==
PROVIDERS: Emergency Provider Emergency Medicine; PCP Family Medicine Geriatric Medicine; Visit Provider Emergency Medicine
DX: S01.01XA Laceration without foreign body of scalp, initial encounter (principal); S16.1XXA Strain of muscle, fascia and tendon at neck level, initial encounter; W01.198A Fall on same level from slipping, tripping and stumbling with subsequent striking against other object, initial encounter; Z23 Encounter for immunization; G89.29 Other chronic pain; I10 Essential (primary) hypertension; G47.33 Obstructive sleep apnea (adult) (pediatric); Z79.899 Other long term (current) drug therapy
CPT/HCPCS: 12011; 70450; 72125; 90471; 90715; 99285; A4216

== ENCOUNTER 2024-03-25 15:00 | Outpatient (RCR) | payer MEDICARE, SELFPAY ==
--- NOTE | 2023-12-29 15:31 | HP.PTEVAL_ITS ---
Patient's Visit Information Visit Information Visit Information: JUWAN DAVIES is a 78 year old F referred to Physical Therapy by Dr. Michael Snowden MD with a diagnosis of debilitation. Date of Evaluation: 12/29/23 Physical Therapist: Geo Phillip, PT, ATC Visit Plan Frequency: 2-3x /Week Duration: 6-8 weeks Plan: B LE strengthening, balance and proprio, gait training, transfer training, Nustep, and HEP Subjective Subjective: Pt reports she is very debilitated right now. Pt notes she had PT in the past secondary to weakness, but has not had any PT in the past 2 months. Pt reports she has been seen by various doctors recently secondary to neck and LBP. Pt reports she has been very limited with all activity secondary to all of the pain she has been in. Pt notes she has been diagnosed with osteoporosis in the past, and states her doctor has told her that is she doesn't get more active, she is going to end up paralyzed. Pt reports she has numb feet, but that she can still feel her feet hit the ground. Pt reports 2 recent falls where she fell in the bathroom and landed on her hip. Pt reports she has only one step to get in her house which is very difficult for her to negotiate. Pt reports overall body pain is 7/10 today. Pain Overall body pain: Pain Intensity (Out of 10): 7 Pain Intensity Range: 7 Objective Objective: Neuro: B LE L2-3 dermatome is hyposensitive to light touch. All other B LE sensation is WNL to light touch. ROM: B LE ROM is equal bilaterally. MMT: B knee ext= 4/5. All other B LE MMT is grossly 3+/5 throughout Gait: Pt is able to ambulate 100 feet with WW until needing to stop secondary to fatigue. TU sec. Stairs: Unable to attempt today secondary to dizziness. Balance/Special Test Scores Lower Extremity Functional Score: 13 Goals Goal 1:: Increase B LE strength x 1 grade to aid with stair negotiation Goal Time Frame: 6-8 Weeks Goal 2:: Pt will perform the TUG test in under 20 seconds to aid with community mobility Goal Time Frame: 6-8 Weeks Goal 3:: Pt will be able to negotiate 10 steps with 2 handrails to aid with community mobility Goal Time Frame: 6-8 Weeks Goal 4:: I with Hep Goal Time Frame: 2-4 Weeks Rehabilitation Potential Physical Therapy Diagnosis: Pt has B LE weakness, difficulty with stairs, and di fficulty with ambulation secondary to debilitation Rehabilitation Potential: Good Anticipated Interventions Patient/Client Instruction: Educate patient on: Condition and Plan of Care For the Purpose of:: To improve self management Therapeutic Exercise to Include: Strength training, Endurance training, Balance training, Gait and locomotor training and Dynamic Lumbar Stabilization For the Purpose of:: To decrease pain, To improve muscle performance and motor function and To increase tolerance to activity/condition/position Text: Thank you for the opportunity to evaluate your patient. For Medicare and Medicare HMO plans, please review the plan of care and approve it. It will need to be FAXED BACK to us at [phone] for Medicare purposes. For Medicare only, by signing this I certify the plan of care. Please let me know if there are questions or concerns regarding this plan of care. Physician Signature: Date:
--- NOTE | 2024-02-13 15:06 | HP.PTREVAL ---
Re-Evaluation Intro: Dr. Michael Snowden MD, It has been my pleasure to treat JUWAN DAVIES over the last 13 visits for debilitation. Please see the progress note below for an update on the physical therapy plan of care! Subjective Subjective: Pt reports she feels very tired at this time. Pt reports she is still very limited with walking and transfer type of activity. Objective Objective/Function: Gait: Pt is able to ambulate 340 feet until needing to rest secondary to pain in her feet TU sec Stairs: Pt must use 2 handrails and negotiate them one step at a time Pt is progressing in all goals, but still lacks functional mobility at this time Plan Plan Plan: 02/13/24- Continue with B LE strengthening, balance and proprio, gait training, transfer training, Nustep, and HEP Balance/Gait/Functional tests Balance/Special Test Scores Lower Extremity Functional Score: 13 Goals Goals Goal 1:: Increase B LE strength x 1 grade to aid with stair negotiation Goal Time Frame: 6-8 Weeks Goal 2:: Pt will perform the TUG test in under 20 seconds to aid with community mobility Goal Time Frame: 6-8 Weeks Goal 3:: Pt will be able to negotiate 10 steps with 2 handrails to aid with community mobility Goal Time Frame: 6-8 Weeks Goal 4:: I with Hep Goal Time Frame: 2-4 Weeks Goal Progress: Progressing Anticipated Interventions Anticipated Interventions Patient/Client Instruction: Educate patient on: Condition and Plan of Care For the Purpose of:: To improve self management Therapeutic Exercise to Include: Strength training, Endurance training, Balance training, Gait and locomotor training and Dynamic Lumbar Stabilization For the Purpose of:: To decrease pain, To improve muscle performance and motor function and To increase tolerance to activity/condition/position Re-Evaluation Ending Re-evaluation ending: Please do not hesitate to contact me at [phone] by phone or if you have questions or concerns regarding this new plan of care! Sincerely, Geo Phillip, PT, ATC
--- NOTE | 2024-06-15 11:56 | HP.PT.NRP ---
Patient Information Patient Information: JUWAN DAVIES was seen in my office for initial evaluation on 12/29/23. The following Plan of Care was established for this patient: POC Established Initial Frequency: 2-3x /Week Initial Duration: 6-8 weeks Anticipated Interventions Patient/Client Instruction: Educate patient on: Condition and Plan of Care For the Purpose of:: To improve self management Therapeutic Exercise to Include: Strength training, Endurance training, Balance training, Gait and locomotor training and Dynamic Lumbar Stabilization For the Purpose of:: To decrease pain, To improve muscle performance and motor function and To increase tolerance to activity/condition/position Last Seen Last Seen: This patient was last seen in our office . Pertinent comments regarding their Physical therapy will appear below: At this point I will be discontinuing this patient from physical therapy. I would be happy to see this patient again in the future if found appropriate by the physician. Thank you! Geo Phillip, PT, ATC Balance/Gait/Functional tests Balance/Special Test Scores Lower Extremity Functional Score: 13
== END 2024-03-25 19:00 | disposition home or self-care (01) ==
LOC: PT 15:00
PROVIDERS: PCP Family Medicine Geriatric Medicine; Referring Provider Family Medicine Geriatric Medicine; Visit Provider Family Medicine Geriatric Medicine
DX: R29.898 Other symptoms and signs involving the musculoskeletal system (principal)
CPT/HCPCS: 97110; 97161; 97530

== ENCOUNTER 2024-03-30 19:15 | Emergency (ER) | payer MEDICARE, SELFPAY ==
[2024-03-30 19:16] VITALS: BP 134/85; PULSE 82; RESP 16; TEMP 36.6; O2SAT 98
--- NOTE | 2024-03-30 19:53 | RAD_ITS ---
STUDY: X-RAY - LUMBAR SPINE REASON FOR EXAM: Female, 78 years old. pain TECHNIQUE: 2 view(s) of the lumbar spine were obtained. COMPARISON: 11/09/2018 FINDINGS: Normal lumbar lordosis. There is no substantial scoliosis. 18 mm of anterolisthesis of L5 on S1 which is unchanged likely from spondylolisthesis. Worsening loss of height and concavity of the inferior endplate of the L1 vertebral body consistent with worsening of the compression fracture which may be acute, subacute, or chronic. No change in the chronic moderate wedge compression fracture of T12. Normal disc space heights. There is multilevel facet hypertrophy. The soft tissue structures are unremarkable. RAD/Lumbar Spine 2 or 3 Views IMPRESSION: Worsening compression fracture of L1 which may be acute, subacute, or chronic. Clinical correlation and MRI may be useful. Electronically Signed: Shekhar Parker MD at 21:05 EST ,
--- NOTE | 2024-03-30 19:53 | RAD_ITS ---
STUDY: X-RAY - PELVIS AND RIGHT HIP REASON FOR EXAM: Female, 78 years old. pain TECHNIQUE: 3 views of the pelvis and hip. COMPARISON: None. FINDINGS: There is a non-specific bowel gas pattern. Normal visualized soft tissue structures. Normal bilateral iliac wings, sacroiliac joints and visualized sacrum. Normal bilateral superior and inferior pubic rami. Normal pubic symphysis. Normal bilateral ischial tuberosities. Normal visualized femoral head. Normal acetabulum. Normal hip joint. RAD/HIP, UNI W/ Pelvis 2-3 Views IMPRESSION: Normal x-ray examination of the pelvis and hip. Electronically Signed: Shekhar Parker MD at 21:03 EST ,
--- NOTE | 2024-03-30 20:37 | ED.RN ---
when patient taken back into ED rm 17, pt refuses to get into the ED bed. pt requests to stay in the wheelchair.
--- NOTE | 2024-03-30 22:09 | EDS_ITS ---
HPI History of Present Illness Chief Complaint: Back Informant: patient Narrative Narrative: Patient is a 78-year-old female with history of hypertension, sarcoidosis, myelopathy, GI bleeding, neuropathy of the extremities presenting for worsening right lower back pain rating to her right thigh. She denies any new trauma. She states 6 weeks ago she did have a fall and at that time was seen in the ER and had a CT of her head. She had glue placed to her head. She did not have any lower spine/pelvic imaging performed. She notes that at physical therapy on , 5 days ago, she had some mild discomfort in the right lower back. Since then she has had worsening pain. She notes she normally walks with a walker and is now having so much pain she is having a hard time using her walker. She feels that she is dragging her right foot but does not know how long this has been going on. She denies any new traumas. Patient states she seen spine at our hospital (Dr. Brooks) I did not feel that there is further intervention for her and referred her to [facility]. They also felt like they could not do anything and she was referred to [facility]. She has appointment to see [facility] April 14. She is been taking Tylenol at home and had her last dose at 8 PM. Has chronic urinary incontinence for years with no acute change. Denies any stool incontinence. Has chronic paresthesias of her waist down which is unchanged going on for years. No other acute complaints or concerns reported at this time no fevers or chills reported. [facility] Medical History Dyskinesia of esophagus COVID-19 virus infection (04/10/21) History of non-ST elevation myocardial infarction (NSTEMI) (02/16/15) Encephalopathy Syncope and collapse Nonrheumatic aortic (valve) stenosis Essential (primary) hypertension GERARDO (obstructive sleep apnea) Osteoarthritis Myelopathy Spinal cord lesion Upper GI bleed Obesity (BMI 30-39.9) Home Medications ?Medication ?Instructions ?Recorded ?Last Taken ?Type metoprolol succinate 50 mg 50 mg PO BID blood pressure #60 08/27/17 04/06/19 09:00 Rx tablet,extended release 24 hr tabs cholecalciferol (vitamin D3) 125 5,000 unit PO DAILY Supplement 04/03/19 04/06/19 History mcg (5,000 unit) capsule folic acid 1 mg tablet 1 mg PO DAILY Supplement 04/03/19 04/06/19 14:00 History vitamin B complex 1 ea PO DAILY Supplement 04/03/19 04/06/19 14:00 History acetaminophen 500 mg tablet 1,000 mg (2 x 500 mg) PO Q6H PRN 04/26/19 Unknown Rx PRN Pain Score 1-01/07 magnesium 250 mg tablet 400 mg PO DAILY Supplement 01/06/23 Unknown History amlodipine 2.5 mg tablet 2.5 mg PO BID blood pressure #180 03/29/24 Unknown Rx tabs hydrocodone-acetaminophen 5-325mg 1 tab PO Q8H PRN pain 3 days #10 03/31/24 Unknown Rx 5mg-325mg tabs Allergy/AdvReac Type Severity Reaction Status Date / Time hydrochlorothiazide Allergy Intermediate low sodium Verified 03/30/24 19:17 atorvastatin (From Lipitor) Allergy Unknown Verified 03/30/24 19:17 doxazosin (From Cardura) Allergy Other Verified 03/30/24 19:17 lisinopril Allergy Angioedema Verified 03/30/24 19:17 amlodipine (From Norvasc) AdvReac Severe Freezes up Verified 03/30/24 19:17 limbs nifedipine (From Nifedical AdvReac Severe Freezes up Verified 03/30/24 19:17 XL) limbs alendronate sodium (From AdvReac Intermediate GI upset Verified 03/30/24 19:17 Fosamax) codeine AdvReac Unknown Verified 03/30/24 19:17 ibuprofen AdvReac Other Verified 03/30/24 19:17 Family History Father Hypertension Aortic aneurysm Mother Hypertension Sister Hypertension Diabetes Surgical History Status post surgical removal of malignant neoplasm of skin History of cataract extraction Hx of LASIK Status post right foot surgery History of bunionectomy of right great toe History of tonsillectomy History of tonsillectomy History of total right knee replacement History of total left knee replacement History of arthroplasty of right knee Social History household members: caregiver housing: [facility] pets and animals: No Smoking Status: Never smoker alcohol intake: never substance use type: does not use caffeine: No what type of physical activity do you participate in: none seatbelt use: always do you feel safe at home: Yes ROS ROS ED Constitutional Constitutional ED: Denies chills or fever(s) Respiratory/Chest Respiratory/Chest: Denies dyspnea or dyspnea on exertion Musculoskeletal Musculoskeletal: Reports back pain and other Details: Right low back pain radiating to her leg Integumentary Denies rash Neurologic Neurologic: Reports paresthesias and weakness Hematologic/Lymphatic Hematologic/Lymphatic: Denies easy bleeding or easy bruising EXAM Physical Exam Const Vital Signs: 03/30/24 19:16 03/30/24 23:16 03/31/24 00:00 Temperature 98 F 98 F Temperature Source Temporal Pulse Rate 82 76 84 Respiratory Rate 16 16 16 Blood Pressure 134/85 H 132/88 H 145/78 H Blood Pressure Mean 101 102 100 Pulse Ox 98 98 99 Oxygen Delivery Method Room Air Positive well nourished Constitutional Narrative: Frail HEENT Reports moist mucous membranes Resp normal respiratory effort and clear to auscultation bilaterally Cardio regular rate and regular rhythm GI normal to inspection, nondistended, normoactive bowel sounds and soft to palpation Back/Spine Back/Spine Narrative: no midline lumbar tenderness but relatively diffuse tenderness of the right lumbar paraspinal region into the upper buttocks. Thoracic Spine / Upper Back: Negative for paraspinal muscle tenderness Lumbar Spine / Lower Back: ROM limited and straight leg raise positive - left Extremity Extremity Narrative: Deformity of the fingers presents. No obvious deformity of the lower extremities. No pinpoint bony tenderness. Neuro oriented x3 Neuro Narrative: Patient report subjective paresthesias diffusely from the waist down. She states has been going on for years. She has decreased strength of the right foot with dorsiflexion but 5/5 strength bilaterally with plantarflexion. She also has mildly decreased strength with hip flexion of the left side. She states this is chronic. Sensorium / Orientation: alert Psych mental status grossly normal Skin no rashes or lesions noted and no wounds MDM MDM MDM Narrative Medical decision making narrative: Patient is monitored for worsening right lower back pain. Does have a history of a fall 6 weeks ago and states she never had imaging. Protocol lumbar x-ray and hip x-ray were ordered. X-ray of the lumbar spine shows worsening compression fracture of L1 which may be acute, subacute or chronic. Patient does not have pinpoint tenderness over the L1 vertebrae so suspect it is acute. Associated with her pain today. Her pain seems much more consistent with a sciatica. Chart review from patient's orthopedic spine visit on 11/13/[address] Brooks documents having pain rating down her right leg. She has decreased strength of the right ankle MRI showed foraminal stenosis at L5-S1 on the right side was thought to be contributing to her partial foot drop. Recommended against surgical intervention. I initially tried to ambulate patient however she states she is having too much pain. Has been offered oral pain medication as well as IM pain medicine but had declined afraid that she would be too out of it to be able to walk into her house. After she had difficulty with a relation trial she did agree to IM morphine. On repeat evaluation her pain has improved but is still present. She is able to ambulate much better but still requires a walker. We discharged home with a prescription for [place]. Was offered prednisone but had declined because of concern of prior gastric bleeding. Will follow-up at [facility] spine as scheduled. Is encouraged to call to see if her appointment can be moved up. Given return precautions. Discharged home in stable and improved condition. Radiography Diagnostic Testing: Clinical Impression(s) from Imaging Studies Hip/Pelvis X-Ray 03/30/24 19:53 IMPRESSION: Normal x-ray examination of the pelvis and hip. Electronically Signed: Shekhar Parker MD at 21:03 EST , Lumbar Spine X-Ray 03/30/24 19:53 IMPRESSION: Worsening compression fracture of L1 which may be acute, subacute, or chronic. Clinical correlation and MRI may be useful. Electronically Signed: Shekhar Parker MD at 21:05 EST , Discharge Plan Triage Chief Complaint: Back Other Complaint: Lower Extremity Injury ED Provider: Floridalma Bingham Dx/Rx/DC Orders Clinical Impression: Acute exacerbation of chronic low back pain, Sciatica of right side Instructions: ED Back Pain (Acute or Chronic), ED Sciatica Prescriptions: New hydrocodone-acetaminophen 5-325 mg tablet 1 tab PO Q8H PRN (Reason: pain) 3 Days Qty: 10 0RF No Action metoprolol succinate 50 MG tablet 50 mg PO BID Qty: 60 0RF vitamin B complex 1 EACH tablet 1 ea PO DAILY folic acid 1 MG tablet 1 mg PO DAILY cholecalciferol (vitamin D3) 5,000 UNIT capsule 5,000 unit PO DAILY magnesium 250 mg tablet 400 mg PO DAILY acetaminophen 500 MG tablet 1,000 mg PO Q6H PRN PRN (Reason: Pain Score 1-10/10) 0RF amlodipine 2.5 mg tablet 2.5 mg PO BID Qty: 180 3RF Primary Care Provider: Michael Snowden Chi Referrals: Michael Snowden Chi, MD [Primary Care Provider] - Activity Restrictions/Additional Instructions: Please follow-up with your primary care doctor as well as spine at [facility] as scheduled. Call to see if they can get you in sooner. Please be aware that pain medicine increases the risk of confusion, lightheadedness, nausea and vomiting. Be careful when taking it. It also causes constipation. I recommend taking stool softener such as Dulcolax or MiraLAX while taking the pain medication. If your symptoms worsen you have a hard time taking care of her self at home please return to the emergency room. Print Language: Hungarian Disposition Disposition: Home, Self Care Discharge Date/Time: 03/31/24 01:04
[2024-03-30] MEDS: Morphine 4 MG/ML Syringe IM (22:53)
[2024-03-30 23:16] VITALS: BP 132/88; PULSE 76; RESP 16; O2SAT 98
[2024-03-31] VITALS: BP 145/78; PULSE 84; RESP 16; TEMP 36.6; O2SAT 99
[2024-03-31 00:08] VITALS: O2SAT 97
[2024-03-31] MEDS: HYDROcodone Bitartrate/Apap 5/325 Tablet PO (00:59)
== END 2024-03-31 01:04 | disposition home or self-care (01) ==
PROVIDERS: Emergency Provider Emergency Medicine; PCP Family Medicine Geriatric Medicine; Visit Provider Emergency Medicine
DX: M54.41 Lumbago with sciatica, right side (principal); M48.56XA Collapsed vertebra, not elsewhere classified, lumbar region, initial encounter for fracture; M48.07 Spinal stenosis, lumbosacral region; R32 Unspecified urinary incontinence; I10 Essential (primary) hypertension; G89.29 Other chronic pain; D86.9 Sarcoidosis, unspecified; G47.33 Obstructive sleep apnea (adult) (pediatric); I25.2 Old myocardial infarction; Z79.899 Other long term (current) drug therapy; Z96.653 Presence of artificial knee joint, bilateral
CPT/HCPCS: 72100; 73502; 96372; 99283

== ENCOUNTER 2024-04-11 10:49 | Inpatient (IN) | payer MEDICARE, SELFPAY ==
[2024-04-11] VITALS (7 sets, daily range): BP systolic 110–150; BP diastolic 63–101; PULSE 50–60; RESP 16–20; TEMP 36.4–37.1; O2SAT 95–98; BMI 36.5; BMI 32.5
--- NOTE | 2024-04-11 11:40 | ED.VIS.BACK ---
HPI <GABY Colon - Last Filed: 04/11/24 13:18> History of Present Illness Chief Complaint: Back Narrative Narrative: 78-year-old female with PMH of HTN, sarcoidosis, myelopathy, neuropathy presents with worsening right lower back pain radiating to her right thigh. No new trauma. About 2 months ago she fell and had negative CT scans of her head but no imaging of her back. She continued to have lumbar back pain and was seen at [facility] on [address] and had x-ray showing worsening L1 compression fracture. She was prescribed 3 days of [place] and after this Dr. Snowden prescribed tramadol. She was taking it twice a day but it was helping so she went up to 3 times a day but she feels like it makes her pain worse. She ambulates with a walker with difficulty. Today she was unable to get out of bed and her sister does not feel she can care for her in this state. She has had no new fall or injury. She has chronic urinary incontinence. No new bowel incontinence. She has chronic bilateral leg neuropathy she attributes to sarcoidosis in her cervical spine. There are no new symptoms. PFSH <GABY Colon - Last Filed: 04/11/24 13:18> [facility] Medical History Dyskinesia of esophagus COVID-19 virus infection (04/10/21) History of non-ST elevation myocardial infarction (NSTEMI) (02/16/15) Encephalopathy Syncope and collapse Nonrheumatic aortic (valve) stenosis Essential (primary) hypertension GERARDO (obstructive sleep apnea) Osteoarthritis Myelopathy Spinal cord lesion Upper GI bleed Obesity (BMI 30-39.9) Home Medications ?Medication ?Instructions ?Recorded ?Last Taken ?Type metoprolol succinate 50 mg 50 mg PO BID blood pressure #60 08/27/17 04/10/24 Rx tablet,extended release 24 hr tabs cholecalciferol (vitamin D3) 125 5,000 unit PO DAILY Supplement 04/03/19 04/10/24 History mcg (5,000 unit) capsule folic acid 1 mg tablet 1 mg PO DAILY Supplement 04/03/19 04/10/24 History vitamin B complex 1 ea PO DAILY Supplement 04/03/19 04/10/24 History acetaminophen 500 mg tablet 1,000 mg (2 x 500 mg) PO Q6H PRN 04/26/19 04/11/24 Rx PRN Pain Score 1-10 magnesium 250 mg tablet 400 mg PO DAILY Supplement 01/06/23 04/10/24 History amlodipine 2.5 mg tablet 2.5 mg PO BID blood pressure #180 03/29/24 04/10/24 Rx tabs cyanocobalamin (vitamin B-12) 1,000 mcg PO DAILY 04/11/24 04/10/24 History 1,000 mcg tablet,extended release tramadol 50 mg tablet 50 mg PO BID PRN PRN pain 04/11/24 04/10/24 History turmeric 400 mg capsule 400 mg PO DAILY 04/11/24 04/10/24 History Allergy/AdvReac Type Severity Reaction Status Date / Time hydrochlorothiazide Allergy Intermediate low sodium Verified 04/11/24 10:50 atorvastatin (From Lipitor) Allergy Unknown Verified 04/11/24 10:50 doxazosin (From Cardura) Allergy Other Verified 04/11/24 10:50 lisinopril Allergy Angioedema Verified 04/11/24 10:50 amlodipine (From Norvasc) AdvReac Severe Freezes up Verified 04/11/24 10:50 limbs nifedipine (From Nifedical AdvReac Severe Freezes up Verified 04/11/24 10:50 XL) limbs alendronate sodium (From AdvReac Intermediate GI upset Verified 04/11/24 10:50 Fosamax) codeine AdvReac Unknown Verified 04/11/24 10:50 ibuprofen AdvReac Other Verified 04/11/24 10:50 Family History Father Hypertension Aortic aneurysm Mother Hypertension Sister Hypertension Diabetes Surgical History Status post surgical removal of malignant neoplasm of skin History of cataract extraction Hx of LASIK Status post right foot surgery History of bunionectomy of right great toe History of tonsillectomy History of tonsillectomy History of total right knee replacement History of total left knee replacement History of arthroplasty of right knee Social History household members: caregiver housing: condominium pets and animals: No Smoking Status: Never smoker alcohol intake: never substance use type: does not use caffeine: No what type of physical activity do you participate in: none seatbelt use: always do you feel safe at home: Yes ROS <GABY Colon - Last Filed: 04/11/24 13:18> ROS ED ROS Narrative Constitutional: Negative for fever, chills, malaise. CVS: Negative for chest pain. Respiratory: Negative for shortness of breath. GI: Negative for abdominal pain, nausea, vomiting. : Negative for dysuria. EXAM <GABY Colon - Last Filed: 04/11/24 13:18> Physical Exam Narrative Exam Narrative: CONST: Patient sitting in no acute distress. EYES: Normal inspection. NECK: Normal inspection. RESP: No respiratory distress, CTAB. CVS: Regular rate and rhythm, no murmur, no gallop. ABD: Soft and nontender, no guarding or rebound, nondistended. Back: Tenderness of upper lumbar vertebrae without step-offs and tenderness of right lumbar paraspinals. Lower extremities appear symmetric, subjective paresthesias from the waist down ongoing for years. Decreased strength right foot with dorsi flexion which is chronic, 5/5 bilaterally plantarflexion. 2+ DP pulses. SKIN: Color normal, no rash, warm, dry, intact. NEURO: Alert and answering questions appropriately. PSYCH: Normal affect. Const Vital Signs: 04/11/24 10:49 04/11/24 12:49 Temperature 97.8 F Temperature Source Oral Pulse Rate 57 L 52 L Respiratory Rate 16 20 H Blood Pressure 150/101 H 137/84 H Blood Pressure Mean 117 101 Pulse Ox 98 95 Oxygen Delivery Method Room Air <Dr. Melvin Swenson DO - Last Filed: 04/11/24 12:34> Physical Exam Const Vital Signs: 04/11/24 10:49 04/11/24 12:49 Temperature 97.8 F Temperature Source Oral Pulse Rate 57 L 52 L Respiratory Rate 16 20 H Blood Pressure 150/101 H 137/84 H Blood Pressure Mean 117 101 Pulse Ox 98 95 Oxygen Delivery Method Room Air MDM <GABY Colon - Last Filed: 04/11/24 13:18> MDM MDM Narrative Medical decision making narrative: History gathered from: Patient, sister 78-year-old female with chronic back pain and known L1 compression fracture and chronic right foot drop presents with intractable back pain. She has been taking tramadol from her PCP. She is seen to spinal specialist who did not think she was surgical candidate. She has an appointment scheduled at [facility] for evaluation but today had too much pain to get out of bed. Patient and sister do not feel she can manage at home. She has no new trauma, no new neurological deficits or red flags. I do not think imaging is indicated. Basic labs obtained for admission and she was given IV morphine and Zofran. I discussed the case with the hospitalist for admission. External records reviewed: 09/30/2023 Lumbar spine MRI Multilevel degenerative changes, Zofran. 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 I have personally performed a face to face assessment of the patient and have reviewed the TISHA Note. I performed a substantive portion of the visit including all aspects of the following. My montes findings include: History is [patient presents the emergency department with back pain that has been chronic. Today unable to get out of bed and lives with her sister who feels that she is unable to manage patient and care for her at home. She was seen in the emergency department about 12 days ago and started on hydrocodone. Patient also seen by primary care physician who added tramadol. Continues to have significant pain. She had x-rays of her back recently that showed degenerative changes. She had an MRI September 2023 that showed degenerative changes and nerve root impingement at L5-S1. She has been evaluated by Dr. Shipley back specialist as well as [facility] and was told to go to [facility] for evaluation as her bone density is very poor and would not be a good surgical candidate. Patient has an appointment with [facility] in 3 days. She has chronic paresthesias in her legs. She has chronic urinary incontinence for years. Patient normally uses a walker to walk.] Exam is [HEENT-PERRLA, EOMI. Cranial nerves II through XII grossly intact. TMs clear. Mucous membranes moist. No adenopathy. Cardiovascular-regular rate and rhythm without murmur or ectopy Lungs-clear to auscultation, chest wall stable without crepitus or subcu emphysema Abdomen-normoactive bowel sounds, soft, nontender, no rebound or rigidity, no peritoneal signs. Back exam-diffuse tenderness palpation over the lumbar spine and lumbar paraspinal musculature. Negative straight leg raises. Deep tendon reflexes are plus 1 out of 4 bilaterally at the patella and Achilles. Patient has normal L5 extension on the left and diminished on the right. Decree sensation bilaterally to both lower extremities. Extremities-intact ?4, normal range of motion, normal pulses, atraumatic] Medical Decison Making [patient presents with ongoing chronic back pain with no new injury. She had recent x-rays therefore I do not feel any imaging is indicated. She had basic labs that were unremarkable. Case discussed with hospitalist to evaluate patient for admission for intractable back pain and difficulty ambulating. Patient with prefer to rate made at our hospital versus being transferred to [facility].] Other additions or changes: [None] Lab Data Labs: Laboratory Results - last 24 hr 04/11/24 11:54 WBC 8.0 RBC 3.92 L Hgb 12.7 Hct 38.0 MCV 96.9 MCH 32.4 H MCHC 33.4 RDW Std Deviation 46.2 H RDW Coeff of Ok 13.0 Plt Count 296 MPV 9.1 Immature Gran % (Auto) 0.400 Neut % (Auto) 73.8 H Lymph % (Auto) 15.[address] % (Auto) 9.0 Eos % (Auto) 1.0 Baso % (Auto) 0.7 Absolute Neuts (auto) 5.9 Absolute Lymphs (auto) 1.21 Nucleated RBC % 0 Sodium 136 Potassium 4.2 Chloride 103 Carbon Dioxide 27.0 Anion Gap 6 BUN 14 Creatinine 0.76 Estim Creat Clear Calc 53.96 Est GFR (MDRD) Af Amer 94 Est GFR (MDRD) Non-Af 78 BUN/Creatinine Ratio 18.3 Glucose 97 Calcium 9.1 <Dr. Melvin Swenson, DO - Last Filed: 04/11/24 12:34> [facility] MDM Narrative Medical decision making narrative: External records reviewed: 09/30/2023 Lumbar spine MRI Multilevel degenerative changes, Zofran. 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 I have personally performed a face to face assessment of the patient and have reviewed the TISHA Note. I performed a substantive portion of the visit including all aspects of the following. My montes findings include: History is [patient presents the emergency department with back pain that has been chronic. Today unable to get out of bed and lives with her sister who feels that she is unable to manage patient and care for her at home. She was seen in the emergency department about 12 days ago and started on hydrocodone. Patient also seen by primary care physician who added tramadol. Continues to have significant pain. She had x-rays of her back recently that showed degenerative changes. She had an MRI September 2023 that showed degenerative changes and nerve root impingement at L5-S1. She has been evaluated by Dr. Shipley back specialist as well as [facility] and was told to go to [facility] for evaluation as her bone density is very poor and would not be a good surgical candidate. Patient has an appointment with [facility] in 3 days. She has chronic paresthesias in her legs. She has chronic urinary incontinence for years. Patient normally uses a walker to walk.] Exam is [HEENT-PERRLA, EOMI. Cranial nerves II through XII grossly intact. TMs clear. Mucous membranes moist. No adenopathy. Cardiovascular-regular rate and rhythm without murmur or ectopy Lungs-clear to auscultation, chest wall stable without crepitus or subcu emphysema Abdomen-normoactive bowel sounds, soft, nontender, no rebound or rigidity, no peritoneal signs. Back exam-diffuse tenderness palpation over the lumbar spine and lumbar paraspinal musculature. Negative straight leg raises. Deep tendon reflexes are plus 1 out of 4 bilaterally at the patella and Achilles. Patient has normal L5 extension on the left and diminished on the right. Decree sensation bilaterally to both lower extremities. Extremities-intact ?4, normal range of motion, normal pulses, atraumatic] Medical Decison Making [patient presents with ongoing chronic back pain with no new injury. She had recent x-rays therefore I do not feel any imaging is indicated. She had basic labs that were unremarkable. Case discussed with hospitalist to evaluate patient for admission for intractable back pain and difficulty ambulating. Patient with prefer to rate made at our hospital versus being transferred to [facility].] Other additions or changes: [None] Lab Data Attestation: I reviewed the patient's lab results. Labs: Laboratory Results - last 24 hr 04/11/24 11:54 WBC 8.0 RBC 3.92 L Hgb 12.7 Hct 38.0 MCV 96.9 MCH 32.4 H MCHC 33.4 RDW Std Deviation 46.2 H RDW Coeff of Ok 13.0 Plt Count 296 MPV 9.1 Immature Gran % (Auto) 0.400 Neut % (Auto) 73.8 H Lymph % (Auto) 15.[address] [place] % (Auto) 9.0 Eos % (Auto) 1.0 Baso % (Auto) 0.7 Absolute Neuts (auto) 5.9 Absolute Lymphs (auto) 1.21 Nucleated RBC % 0 Sodium 136 Potassium 4.2 Chloride 103 Carbon Dioxide 27.0 Anion Gap 6 BUN 14 Creatinine 0.76 Estim Creat Clear Calc 53.96 Est GFR (MDRD) Af Amer 94 Est GFR (MDRD) Non-Af 78 BUN/Creatinine Ratio 18.3 Glucose 97 Calcium 9.1 Discharge Plan Triage Chief Complaint: Back ED Midlevel Provider: Dana Kruger ED Provider: Melvin Swenson Dx/Rx/DC Orders Clinical Impression: Chronic back pain, Compression fracture of L1 vertebra, Unable to ambulate Prescriptions: No Action metoprolol succinate 50 MG tablet 50 mg PO BID Qty: 60 0RF vitamin B complex 1 EACH tablet 1 ea PO DAILY folic acid 1 MG tablet 1 mg PO DAILY cholecalciferol (vitamin D3) 5,000 UNIT capsule 5,000 unit PO DAILY magnesium 250 mg tablet 400 mg PO DAILY acetaminophen 500 MG tablet 1,000 mg PO Q6H PRN PRN (Reason: Pain Score 1-10/10) 0RF cyanocobalamin (vitamin B-12) 1,000 mcg tablet extended release 1,000 mcg PO DAILY tramadol 50 mg tablet 50 mg PO BID PRN PRN (Reason: pain) turmeric 400 mg capsule 400 mg PO DAILY amlodipine 2.5 mg tablet 2.5 mg PO BID Qty: 180 3RF Primary Care Provider: Michael Snowden Chi Referrals: Michael Snowden Chi, MD [Primary Care Provider] - Print Language: Guamanian
[2024-04-11 12:04] LABS: Absolute Lymphocyte Count 1.21 X10^3/uL (0.83-4.51); Absolute Neutrophil Count 5.9 X10^3/uL (2.0-7.7); Basophil# 0.06 X10^3/uL; Basophil% 0.7 % (0-1); Eosinophil# 0.08 X10^3/uL; Hemoglobin 12.7 g/dL (12.0-15.0); Lymphocyte # 1.21 X10^3/ul (0.83-4.51); Lymphocyte % 15.1 % (19-41); Mean Corp Hgb Conc 33.4 g/dL (32-36); Mean Corpuscular Hgb 32.4 pg (27.0-32.0); Mean Corpuscular Volume 96.9 fL (81-99); Mean Platelet Vol. 9.1 fl (6.2-12.0); Monocyte# 0.72 X10^3/uL; NRBC Flagged by Analyzer 0 % (0-5); Neutrophil # 5.91 X10^3/uL (2.7-7.7); Neutrophil % 73.8 % (47-70); Platelet Count 296 K/mm3 (150-450); RBC Distribution Width SD 46.2 fl (35.1-43.9); Red Blood Count 3.92 M/mm3 (4.2-5.4)
[2024-04-11 12:16] LABS: Anion Gap 6 (5-15); BUN 14 mg/dL (7-18); BUN/Creat Ratio 18.3 RATIO (10-20); Calcium,Total 9.1 mg/dL (8.5-10.1); Chloride 103 mmol/L (98-107); Creatinine, Serum 0.76 mg/dL (0.55-1.02); EST Glomerular Filtration Rate 78 mL/min (>60); Est Glom Filt Rate - Afr Amer 94 mL/min (>60); Estimated Creatinine Clearance 53.96 ml/min; Glucose 97 mg/dL (74-106); Potassium 4.2 mmol/L (3.5-5.1); Sodium Level 136 mmol/L (136-145)
[2024-04-11] MEDS: Morphine 4 MG/ML Syringe IV (12:23)
[2024-04-11] MEDS: Ondansetron 4 MG/2 ML Vial IV (12:23)
--- NOTE | 2024-04-11 13:26 | PCM.HP.STD ---
HPI - General General Date of Admission: 04/11/24 Date of Service: 04/11/24 Chief Complaint: Low back pain HPI Narrative JUWAN DAVIES, is a 78 F with a history of hypertension, sarcoidosis, neuropathy presented [facility] ED 04/11/2024 with worsening lower back pain leading to difficulty with ADLs/ambulation. Patient had lumbar x-ray on which showed worsening L1 compression fracture but she was able to be discharged home, patient returned today and labs benign so hospitalist contacted for admission for PT/OT, pain control, and likely placement. She was asked if she would prefer to go to [facility] given she is pending evaluation however she preferred to be admitted to our institution and understands that she will likely not be able to make her clean clinic appointment on Friday regarding her decree sensation. Patient evaluated with sister at bedside. 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 Because of that she has had some chronic numbness in her feet and hands. Also has some chronic back pain somewhat diffusely and saw Dr. Shipley in the office in October. 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 Her appointment is on Friday however she reports she was probably going to cancel it thanks it is supposed to be cold and because of the pain she was worried she would not be able to make it to the appointment. Patient had a fall around and several weeks later began to have worsening of pain in her lumbar spine that was not responding as well to physical therapy which she was still undergoing. Patient has chronic hand and feet numbness and reports some chronic right lower extremity numbness, she said it almost feels more numb than usual but is unsure, fairly poor historian. Sometimes when she is going to use the restroom and she is trying to get her pants down she will lose her balance and she will have to sit down on the toilet seat. Reports she has some difficulty holding her bladder but this is not new, has had some constipation and she has been getting tramadol on an outpatient basis and she does not find that the medication is helpful and she thinks if anything it is worsening it. Additionally patient reported she has been having some vaginal bleeding for several weeks. Mostly spotting but today was slightly more intensive. Not following with a upstream biomanufacturing technician and has not had this evaluated [facility] Medical History Dyskinesia of esophagus COVID-19 virus infection (04/10/21) History of non-ST elevation myocardial infarction (NSTEMI) (02/16/15) Encephalopathy Syncope and collapse Nonrheumatic aortic (valve) stenosis Essential (primary) hypertension GERARDO (obstructive sleep apnea) Osteoarthritis Myelopathy Spinal cord lesion Upper GI bleed Obesity (BMI 30-39.9) Home Medications ?Medication ?Instructions ?Recorded ?Last Taken ?Type metoprolol succinate 50 mg 50 mg PO BID blood pressure #60 08/27/17 04/10/24 Rx tablet,extended release 24 hr tabs cholecalciferol (vitamin D3) 125 5,000 unit PO DAILY Supplement 04/03/19 04/10/24 History mcg (5,000 unit) capsule folic acid 1 mg tablet 1 mg PO DAILY Supplement 04/03/19 04/10/24 History vitamin B complex 1 ea PO DAILY Supplement 04/03/19 04/10/24 History acetaminophen 500 mg tablet 1,000 mg (2 x 500 mg) PO Q6H PRN 04/26/19 04/11/24 Rx PRN Pain Score 1-10/10 magnesium 250 mg tablet 400 mg PO DAILY Supplement 01/06/23 04/10/24 History amlodipine 2.5 mg tablet 2.5 mg PO BID blood pressure #180 03/29/24 04/10/24 Rx tabs cyanocobalamin (vitamin B-12) 1,000 mcg PO DAILY 04/11/24 04/10/24 History 1,000 mcg tablet,extended release tramadol 50 mg tablet 50 mg PO BID PRN PRN pain 04/11/24 04/10/24 History turmeric 400 mg capsule 400 mg PO DAILY 04/11/24 04/10/24 History Allergy/AdvReac Type Severity Reaction Status Date / Time hydrochlorothiazide Allergy Intermediate low sodium Verified 04/11/24 10:50 atorvastatin (From Lipitor) Allergy Unknown Verified 04/11/24 10:50 doxazosin (From Cardura) Allergy Other Verified 04/11/24 10:50 lisinopril Allergy Angioedema Verified 04/11/24 10:50 amlodipine (From Norvasc) AdvReac Severe Freezes up Verified 04/11/24 10:50 limbs nifedipine (From Nifedical AdvReac Severe Freezes up Verified 04/11/24 10:50 XL) limbs alendronate sodium (From AdvReac Intermediate GI upset Verified 04/11/24 10:50 Fosamax) codeine AdvReac Unknown Verified 04/11/24 10:50 ibuprofen AdvReac Other Verified 04/11/24 10:50 Family History Father Hypertension Aortic aneurysm Mother Hypertension Sister Hypertension Diabetes Surgical History Status post surgical removal of malignant neoplasm of skin History of cataract extraction Hx of LASIK Status post right foot surgery History of bunionectomy of right great toe History of tonsillectomy History of tonsillectomy History of total right knee replacement History of total left knee replacement History of arthroplasty of right knee Social History household members: caregiver housing: [facility] pets and animals: No Smoking Status: Never smoker alcohol intake: never substance use type: does not use caffeine: No what type of physical activity do you participate in: none seatbelt use: always do you feel safe at home: Yes ROS ROS Narrative General: Denies fever/chills HENT: Denies headache, denies stuffy nose, denies sore throat EYES: Denies changes in vision Resp: Denies cough, denies shortness of breath Cardiac: Denies chest pain GI: Denies abdominal pain, does have some constipation, denies nausea/vomiting : Has some chronic difficulty with incontinence Extremity: Denies swelling MSK: Somewhat generally weak Neuro: Chronic numbness and tingling in hands and feet and right leg Heme: Vaginal bleeding Skin: Denies rashes Psychiatric: No complaints voiced Vital Signs Vital Signs Vital Signs: 04/11/24 10:49 04/11/24 12:49 Temperature 97.8 F Temperature Source Oral Pulse Rate 57 L 52 L Respiratory Rate 16 20 H Blood Pressure 150/101 H 137/84 H Blood Pressure Mean 117 101 Pulse Ox 98 95 Oxygen Delivery Method Room Air Weight Weight: 79.2 kg Body Mass Index (BMI) 36.5 Physical Exam Narrative General: Alert, oriented, no apparent distress HEENT: Atraumatic, normocephalic Eyes: Anicteric, normal conjunctiva, extraocular movements grossly intact Neck: Supple Respiratory: Clear to auscultation bilaterally, normal respiratory effort Cardiovascular: Regular rate GI: Soft, nontender, nondistended Extremities: No edema Musculoskeletal: Moving all extremities, has difficulty getting lower extremities into the air but does have good resistance bilaterally after they are up Neuro: No sustained clonus in either lower extremities Skin: No rashes appreciated Psych: Cooperative Results Lab / Micro Data 04/11/24 11:54 04/11/24 11:54 Labs: Laboratory Results - last 24 hr 04/11/24 11:54: WBC 8.0, RBC 3.92 L, Hgb 12.7, Hct 38.0, MCV 96.9, MCH 32.4 H, MCHC 33.4, RDW Std Deviation 46.2 H, RDW Coeff of Ok 13.0, Plt Count 296, MPV 9.1, Immature Gran % (Auto) 0.400, Neut % (Auto) 73.8 H, Lymph % (Auto) 15.1 L, [place] % (Auto) 9.0, Eos % (Auto) 1.0, Baso % (Auto) 0.7, Absolute Neuts (auto) 5.9, Absolute Lymphs (auto) 1.21, Nucleated RBC % 0, Sodium 136, Potassium 4.2, Chloride 103, Carbon Dioxide 27.0, Anion Gap 6, BUN 14, Creatinine 0.76, Estim Creat Clear Calc 53.96, Est GFR (MDRD) Af Amer 94, Est GFR (MDRD) Non-Af 78, BUN/Creatinine Ratio 18.3, Glucose 97, Calcium 9.1 Assessment & Plan Assessment/Plan (1) Compression fracture of L1 vertebra: PLAN: Plan # Acute on chronic L1 compression fracture -Appears to have had L1 compression fracture and previous scans however x-ray from the received showed worsening of the fracture and that is around where her pain is located -She has multiple problems from a spine standpoint however specifically is being admitted for pain that is suspected to be due to worsening compression fracture of L1 likely caused by a fall at the end of January with increasing pain -Scheduled Tylenol -Lidocaine patch -Pain control -Schedule bowel regimen -Given the suspicion is this is due to compression fracture will consult pain management -Will repeat x-ray though low suspicion this will foreign exchange student coordinator as the compression fracture was noted to be worsened on March 30 # Postmenopausal vaginal bleeding -Will order transvaginal ultrasound for better characterization/evaluation -May need inpatient versus outpatient Safety Relief Valve Technician evaluation -Will avoid pharmacologic DVT prophylaxis not for SCDs #Hypertension -Continue home medications #DVT ppx: SCDs Lesli Watkins MD Time spent in the patient's overall evaluation, decision-making process, review of diagnostic data, adjustment of management, discussion with other providers, nursing and ancillary staff involved in patient's care documentation, 57 Minutes Charges/Coding Visit Charges Inpatient E&M: 50842 Init Hosp L2
--- NOTE | 2024-04-11 13:40 | RAD_ITS ---
STUDY: X-RAY - LUMBAR SPINE REASON FOR EXAM: Female, 78 years old. Lumbar spine pain following the fall. TECHNIQUE: 3 view(s) of the lumbar spine were obtained. COMPARISON: Comparison is made with prior study dated March 30, 2024. FINDINGS: There is an exaggerated lumbar lordosis. There is no substantial scoliosis. Grade 2 anterolisthesis of L5 on S1 with spondylolysis of the pars interarticularis of the L5 vertebrae. This is unchanged. Stable compression fracture of the L1 vertebrae. Stable loss of height of the superior endplate of the T12 vertebrae. Marked degree of disc space narrowing at the L5-S1 level. Moderate amount of fecal material is seen in the colon. RAD/Lumbar Spine 2 or 3 Views IMPRESSION: Stable anterolisthesis of L5 on S1 due to spondylolysis of the pars interarticularis of the L5 vertebrae. Stable compression fracture of the L1 and T12 vertebrae. Electronically Signed: Bebo Oseguera MD at 10:36 EST ,
[2024-04-11] MEDS: oxyCODONE 5 MG Tablet PO ×2 (15:27→22:53)
[2024-04-11] MEDS: Acetaminophen 500 MG Tablet 1000 MG PO ×2 (15:28→22:11)
[2024-04-11] MEDS: Nystatin Powder 15gm Bottle 1 APPLIC TOPICAL (22:08)
[2024-04-11] MEDS: Metoprolol(XL)Succ 50 MG Tablet PO (22:09)
[2024-04-11] MEDS: amLODIPine 2.5 MG Tablet PO (22:09)
[2024-04-11] MEDS: Senna/Docusate Sodium 1 Tablet 2 TABLET PO (22:09)
[2024-04-12] VITALS (7 sets, daily range): BP systolic 96–141; BP diastolic 54–75; PULSE 50–110; RESP 16–18; TEMP 36.7–36.9; O2SAT 95–97
--- NOTE | 2024-04-12 06:00 | US_ITS ---
STUDY: ULTRASOUND OF THE FEMALE PELVIS - COMPLETE REASON FOR EXAM: Female, 78 years old. Post menopausal vaginal bleeding LMP: Postmenopausal. TECHNIQUE: Transvaginal TECHNICAL QUALITY: Adequate. COMPARISON: None. FINDINGS: The uterus is retroflexed and is in a midline position. The uterus measures 4.6 cm x 2.5 cm x 2.1 cm. Normal uterine cervix. The endometrium measures 2.7 mm in thickness, and is heterogeneous in appearance. There is no demonstrated endometrial mass. There is no demonstrated myometrial mass. I.U.D. - The patient does not have an I.U.D. The right ovary is non-visualized. The left ovary is non-visualized. There is no fluid in the cul-de-sac. US/Transvaginal Non- IMPRESSION: Heterogeneous thickening of the endometrial stripe. Clinical correlation recommended. Electronically Signed: Bebo Oseguera MD at 9:01 EST ,
[2024-04-12] MEDS: Acetaminophen 500 MG Tablet 1000 MG PO ×3 (06:15→21:13)
[2024-04-12 06:27] LABS: Absolute Neutrophil Count 4.5 X10^3/uL (2.0-7.7); Basophil# 0.04 X10^3/uL; Basophil% 0.6 % (0-1); Eosinophil# 0.09 X10^3/uL; Eosinophils% 1.3 % (0-5); Hemoglobin 12.5 g/dL (12.0-15.0); Lymphocyte % 21.6 % (19-41); Mean Corp Hgb Conc 32.1 g/dL (32-36); Mean Corpuscular Hgb 31.7 pg (27.0-32.0); Mean Platelet Vol. 8.8 fl (6.2-12.0); Monocyte# 0.76 X10^3/uL; Monocyte% 10.9 % (0-10); NRBC Flagged by Analyzer 0 % (0-5); Neutrophil # 4.53 X10^3/uL (2.7-7.7); Neutrophil % 65.2 % (47-70); Platelet Count 291 K/mm3 (150-450); RBC Distribution Width CV 13.1 % (11.6-14.6); RBC Distribution Width SD 47.5 fl (35.1-43.9); Red Blood Count 3.94 M/mm3 (4.2-5.4)
[2024-04-12 06:50] LABS: Prothrombin Time (Protime)PT. 13.8 SECONDS (11.7-14.9)
[2024-04-12 07:12] LABS: Anion Gap 6 (5-15); BUN 15 mg/dL (7-18); BUN/Creat Ratio 18.6 RATIO (10-20); Chloride 107 mmol/L (98-107); Creatinine, Serum 0.81 mg/dL (0.55-1.02); EST Glomerular Filtration Rate 73 mL/min (>60); Est Glom Filt Rate - Afr Amer 88 mL/min (>60); Estimated Creatinine Clearance 50.18 ml/min; Glucose 95 mg/dL (74-106); Magnesium 2.3 mg/dL (1.6-2.6); Potassium 4.4 mmol/L (3.5-5.1); Sodium Level 138 mmol/L (136-145); Thyroid Stim Hormone (TSH) 0.856 uIU/mL (0.358-3.740)
[2024-04-12] MEDS: Senna/Docusate Sodium 1 Tablet 2 TABLET PO ×2 (08:53→19:47)
[2024-04-12] MEDS: Nystatin Powder 15gm Bottle 1 APPLIC TOPICAL ×2 (08:54→19:54)
[2024-04-12] MEDS: Lidocaine 5% Patch 1 PATCH TOPICAL (08:54)
[2024-04-12] MEDS: Metoprolol(XL)Succ 25 MG Tablet 12.5 MG PO ×2 (08:57→19:46)
[2024-04-12] MEDS: oxyCODONE 5 MG Tablet PO ×3 (08:57→21:13)
--- NOTE | 2024-04-12 10:59 | CASEMGMT ---
Discharge Planning A list of?SNF providers including quality and resource use data and consistent with the patient's preferred geographic region, medical needs, and insurance network was created in [employer] Guide.? This list was provided to the SW. Lyric Callejas Discharge Planning Asst.
--- NOTE | 2024-04-12 11:45 | CASEMGMT ---
ELIE CHOWDHURY into pt room, pt states she lives with her sister in a single story home with 1 step to enter. Pt states she has a cane, walker and shower chair at home. Pt is receiving outpt therapy at [facility] and reports she has one visit left. Pt states she had a fall the day before Thanksgiving on her way to PT and has had issues ever since. Pt does have an appt at [facility] on Friday to see a spinal doctor. Pt states her sister at baseline assists her in and out of the shower and with drying her back. Since the fall, pt has had to rely more on her sister. Noted therapy evals this date. Pt is [place] sure [place] be at [place]. Pt is hopeful she can go to her appt on Friday but states she does not know if that is feasible. Pain mgmt to see pt. ELIE CHOWDHURY to follow.
--- NOTE | 2024-04-12 15:34 | CASEMGMT ---
Met with patient to complete MARSH form. MARSH form explained to patient who voiced understanding and signed form. Original form placed in pt?s chart and copy provided to patient. Lyric Callejas, Discharge Planning Asst
--- NOTE | 2024-04-12 16:22 | PN.HOSP_ITS ---
Reason for Visit Reason for Visit: Diagnoses Wedge compression fracture of first lumbar vertebra, initial encounter for closed fracture (04/11/24) Subjective Subjective Patient tolerating the pain medication but is still having pain Objective Data Objective Data Vital Signs: Vital Signs Temp Pulse Resp BP Pulse Ox O2 Del Method 98.5 F 65 18 104/54 L 95 Room Air 04/12/24 14:34 04/12/24 14:34 04/12/24 14:34 04/12/24 14:34 04/12/24 14:34 04/12/24 14:34 Oxygen Delivery Method Room Air Weight: 70.582 kg Body Mass Index (BMI) 32.5 Intake & Output: Intake and Output for Last 24 Hours 04/10/24 04/11/24 04/12/24 23:59 23:59 23:59 Intake Total 700 / 1050 500 / 500 Output Total 500 / 1100 1100 / 1100 Balance 200 / -50 -600 / -600 Lab / Micro Data 04/12/24 05:57 04/12/24 05:57 Labs: Laboratory Results - last 24 hr 04/12/24 05:57: WBC 7.0, RBC 3.94 L, Hgb 12.5, Hct 39.0, MCV 99.0, MCH 31.7, MCHC 32.1, RDW Std Deviation 47.5 H, RDW Coeff of Ok 13.1, Plt Count 291, MPV 8.8, Immature Gran % (Auto) 0.400, Neut % (Auto) 65.2, Lymph % (Auto) 21.6, [place] % (Auto) 10.9 H, Eos % (Auto) 1.3, Baso % (Auto) 0.6, Absolute Neuts (auto) 4.5, Absolute Lymphs (auto) 1.50, Nucleated RBC % 0, PT 13.8, INR 1.0, Sodium 138, Potassium 4.4, Chloride 107, Carbon Dioxide 26.0, Anion Gap 6, BUN 15, Creatinine 0.81, Estim Creat Clear Calc 50.18, Est GFR (MDRD) Af Amer 88, Est GFR (MDRD) Non-Af 73, BUN/Creatinine Ratio 18.6, Glucose 95, Calcium 9.0, Magnesium 2.3, TSH 0.856 Radiography Diagnostic Testing: Radiology Impression Lumbar Spine X-Ray 04/11/24 13:40 IMPRESSION: Stable anterolisthesis of L5 on S1 due to spondylolysis of the pars interarticularis of the L5 vertebrae. Stable compression fracture of the L1 and T12 vertebrae. Electronically Signed: Bebo Oseguera MD at 10:36 EST , Physical Exam Narrative General: Alert, oriented, no apparent distress HEENT: Atraumatic, normocephalic Eyes: extraocular movements grossly intact Neck: Supple Respiratory: normal respiratory effort Cardiovascular: no edema appreciated GI: nondistended Extremities: Moving all extremities Neuro: Patient with some baseline decree sensation Psych: Cooperative Assessment & Plan Assessment/Plan (1) Compression fracture of L1 vertebra: PLAN: Plan # Acute on chronic L1 compression fracture -Appears to have had L1 compression fracture and previous scans however x-ray from the received showed worsening of the fracture and that is around where her pain is located -She has multiple problems from a spine standpoint however specifically is being admitted for pain that is suspected to be due to worsening compression fracture of L1 likely caused by a fall at the end of January with increasing pain -Scheduled Tylenol -Lidocaine patch -Pain control -Schedule bowel regimen -Given the suspicion is this is due to compression fracture will consult pain management -Will repeat x-ray though low suspicion this will healthcare management as the compression fracture was noted to be worsened on March 30 -04/12: Repeat lumbar x-ray stable, pain management consult in place, continue supportive care. Patient will physical therapy, suspect she will need placement on discharge # Postmenopausal vaginal bleeding -Will order transvaginal ultrasound for better characterization/evaluation -May need inpatient versus outpatient Furniture [employer]er evaluation -Will avoid pharmacologic DVT prophylaxis not for SCDs -04/12: Transvaginal ultrasound pending #Hypertension -Continue home medications -04/12: BP was on the lower side suspect secondary to pain medication, holding home amlodipine and decreased home metoprolol #DVT ppx: SCDs Lesli Watkins MD Time spent in the patient's overall evaluation, decision-making process, review of diagnostic data, adjustment of management, discussion with other providers, nursing and ancillary staff involved in patient's care documentation, 36 Minutes Charges/Coding Visit Charges Inpatient E&M: 51313 Subs Hosp L2
[2024-04-12] MEDS: Baclofen 10 MG Tablet 5 MG PO (19:45)
[2024-04-13] VITALS (7 sets, daily range): BP systolic 95–163; BP diastolic 58–80; PULSE 54–88; RESP 16–18; TEMP 36.6–37.1; O2SAT 95–98
[2024-04-13] MEDS: oxyCODONE 5 MG Tablet PO ×2 (05:23→20:25)
[2024-04-13] MEDS: Acetaminophen 500 MG Tablet 1000 MG PO ×3 (05:24→20:23)
[2024-04-13 06:39] LABS: Hematocrit 37.7 % (37-47); Hemoglobin 12.2 g/dL (12.0-15.0); Mean Corp Hgb Conc 32.4 g/dL (32-36); Platelet Count 267 K/mm3 (150-450); RBC Distribution Width CV 13.1 % (11.6-14.6); RBC Distribution Width SD 47.2 fl (35.1-43.9); Red Blood Count 3.81 M/mm3 (4.2-5.4); White Blood Count 6.6 K/mm3 (4.4-11.0)
[2024-04-13 07:58] LABS: Anion Gap 5 (5-15); BUN 18 mg/dL (7-18); BUN/Creat Ratio 25.7 RATIO (10-20); Chloride 107 mmol/L (98-107); EST Glomerular Filtration Rate 86 mL/min (>60); Est Glom Filt Rate - Afr Amer 104 mL/min (>60); Estimated Creatinine Clearance 50.81 ml/min; Glucose 94 mg/dL (74-106); Potassium 4.1 mmol/L (3.5-5.1); Sodium Level 139 mmol/L (136-145)
[2024-04-13] MEDS: Lidocaine 5% Patch 1 PATCH TOPICAL (08:35)
[2024-04-13] MEDS: Nystatin Powder 15gm Bottle 1 APPLIC TOPICAL ×2 (08:36→20:23)
[2024-04-13] MEDS: Senna/Docusate Sodium 1 Tablet 2 TABLET PO ×2 (08:36→20:24)
[2024-04-13] MEDS: Metoprolol(XL)Succ 25 MG Tablet 12.5 MG PO ×2 (08:36→20:24)
[2024-04-13] MEDS: Baclofen 10 MG Tablet 5 MG PO ×2 (08:36→17:02)
--- NOTE | 2024-04-13 09:12 | PCM.CONS.GEN ---
Assessment & Plan Assessment/Plan (1) Age-related osteoporosis with current pathol fracture of vertebra: (2) Radiculopathy of lumbar region: PLAN: Plan Most recent lumbar XR appears to show worsening L1 compression fracture. Compared to prior. Order lumbar mri without contrast to evaluate cause for possible cause for radiculopathy and acuity of compression fracture. Consider L1 vertebroplasty vs kyphoplasty depending upon MRI. May be difficult to access to due severity of compression fracture. On multimodal pain regimen with some improvement. Will start baclofen 5mg TID PRN for muscle tightness/spasm Consider PRN soap enema for constipation Not on AC at this time HPI Consult Data Date of Consult: 04/12/24 HPI Narrative Reason for Consultation: Back pain HPI Narrative: Ms Price has long standing history of low back pain and states she has had issues with weakness making ambulation difficulty. She was evaluated by Dr. Brooks several months ago, whom recommended surgical evaluation clinic. She has yet to make this appointment. She describes her basleine pain in the low back with radiation to the lower extremities. She tates that her most recent exacerbation of pain started the day before after a fall. The pain that worsened significantly 1-2 weeks ago. She is unclear exactly what the etiology was not the most recent exacerbation. Regardless she has great difficulty with ambulation aching. She had imaging done that showed evidence of a compression fracture that was chronic at L2 fracture at L1 compared to prior x-ray in October. Most recent x-ray showed further worsening of the compression fracture at L1. Has not had a recent MRI since the fall or compression fracture concern. She is taking opiate pain medication with some constipation. She states she had last had a bowel movement 2 days ago. She also describes muscle spasms. Pain is very severe and limiting in her ability to perform daily functions. [facility] Medical History Dyskinesia of esophagus COVID-19 virus infection (04/10/21) History of non-ST elevation myocardial infarction (NSTEMI) (02/16/15) Encephalopathy Syncope and collapse Nonrheumatic aortic (valve) stenosis Essential (primary) hypertension GERARDO (obstructive sleep apnea) Osteoarthritis Myelopathy Spinal cord lesion Upper GI bleed Obesity (BMI 30-39.9) Home Medications ?Medication ?Instructions ?Recorded ?Last Taken ?Type metoprolol succinate 50 mg 50 mg PO BID blood pressure #60 08/27/17 04/10/24 Rx tablet,extended release 24 hr tabs cholecalciferol (vitamin D3) 125 5,000 unit PO DAILY Supplement 04/03/19 04/10/24 History mcg (5,000 unit) capsule folic acid 1 mg tablet 1 mg PO DAILY Supplement 04/03/19 04/10/24 History vitamin B complex 1 ea PO DAILY Supplement 04/03/19 04/10/24 History acetaminophen 500 mg tablet 1,000 mg (2 x 500 mg) PO Q6H PRN 04/26/19 04/11/24 Rx PRN Pain Score 1-01/07 magnesium 250 mg tablet 400 mg PO DAILY Supplement 01/06/23 04/10/24 History amlodipine 2.5 mg tablet 2.5 mg PO BID blood pressure #180 03/29/24 04/10/24 Rx tabs cyanocobalamin (vitamin B-12) 1,000 mcg PO DAILY 04/11/24 04/10/24 History 1,000 mcg tablet,extended release tramadol 50 mg tablet 50 mg PO BID PRN PRN pain 04/11/24 04/10/24 History turmeric 400 mg capsule 400 mg PO DAILY 04/11/24 04/10/24 History Allergy/AdvReac Type Severity Reaction Status Date / Time hydrochlorothiazide Allergy Intermediate low sodium Verified 04/11/24 10:50 atorvastatin (From Lipitor) Allergy Unknown Verified 04/11/24 10:50 doxazosin (From Cardura) Allergy Other Verified 04/11/24 10:50 lisinopril Allergy Angioedema Verified 04/11/24 10:50 amlodipine (From Norvasc) AdvReac Severe Freezes up Verified 04/11/24 10:50 limbs nifedipine (From Nifedical AdvReac Severe Freezes up Verified 04/11/24 10:50 XL) limbs alendronate sodium (From AdvReac Intermediate GI upset Verified 04/11/24 10:50 Fosamax) codeine AdvReac Unknown Verified 04/11/24 10:50 ibuprofen AdvReac Other Verified 04/11/24 10:50 Family History Father Hypertension Aortic aneurysm Mother Hypertension Sister Hypertension Diabetes Surgical History Status post surgical removal of malignant neoplasm of skin History of cataract extraction Hx of LASIK Status post right foot surgery History of bunionectomy of right great toe History of tonsillectomy History of tonsillectomy History of total right knee replacement History of total left knee replacement History of arthroplasty of right knee Social History household members: caregiver housing: [facility] pets and animals: No Smoking Status: Never smoker alcohol intake: never substance use type: does not use caffeine: No what type of physical activity do you participate in: none seatbelt use: always do you feel safe at home: Yes ROS ROS Narrative General: Denies fever/chills HENT: Denies headache, denies stuffy nose, denies sore throat EYES: Denies changes in vision Resp: Denies cough, denies shortness of breath Cardiac: Denies chest pain GI: Denies abdominal pain, does have some constipation, denies nausea/vomiting : Has some chronic difficulty with incontinence Extremity: Denies swelling MSK: Somewhat generally weak Neuro: Chronic numbness and tingling in hands and feet and right leg Heme: Vaginal bleeding Skin: Denies rashes Psychiatric: No complaints voiced Physical Exam Narrative Lumbar paraspinal tenderness + bilaterally Tenderness into the lumbar flank areas. Lumbar percussion + for pain SLR + bilaterally Hip provocative maneuvers negative Generalized weakness in lower extremities... Patients state this is similar to baseline. Sensation wnl Lab / Micro Data 04/13/24 06:11 04/13/24 06:11 Labs: Laboratory Results - last 24 hr 04/13/24 06:11: WBC 6.6, RBC 3.81 L, Hgb 12.2, Hct 37.7, MCV 99.0, MCH 32.0, MCHC 32.4, RDW Std Deviation 47.2 H, RDW Coeff of Ok 13.1, Plt Count 267, MPV 9.0, Sodium 139, Potassium 4.1, Chloride 107, Carbon Dioxide 27.0, Anion Gap 5, BUN 18, Creatinine 0.70, Estim Creat Clear Calc 50.81, Est GFR (MDRD) Af Amer 104, Est GFR (MDRD) Non-Af 86, BUN/Creatinine Ratio 25.7 H, Glucose 94, Calcium 9.0 Imaging Radiology Impression Lumbar Spine X-Ray 04/11/24 13:40 IMPRESSION: Stable anterolisthesis of L5 on S1 due to spondylolysis of the pars interarticularis of the L5 vertebrae. Stable compression fracture of the L1 and T12 vertebrae. Electronically Signed: Bebo Oseguera MD at 10:36 EST , Transvaginal US 04/12/24 06:00 IMPRESSION: Heterogeneous thickening of the endometrial stripe. Clinical correlation recommended. Electronically Signed: Bebo Oseguera MD at 9:01 EST ,
--- NOTE | 2024-04-13 10:00 | MRI_ITS ---
STUDY: MRI LUMBAR SPINE WITHOUT CONTRAST REASON FOR EXAM: Female, 78 years old. Compression fracture L1 TECHNIQUE: Standardized fat and water weighted pulse sequences were obtained in the sagittal and axial planes. COMPARISON: X-ray the lumbar spine dated April 11, 2024. MRI the lumbar spine dated September 30, 2023 FINDINGS: * Chronic compression deformities of T12 and L1 vertebral body with 50% loss of height and 70% loss of height respectively. Mild retropulsion of the L1 posterior cortex contributing to compression on anterior aspect of the cord and mild central canal stenosis. This is unchanged from the prior study * Chronic bilateral L5 pars interarticularis defects with grade 3-4 anterolisthesis of L4 and L5-1 0.58 cm. * No new abnormalities are present. Normal lumbar lordosis. There is a dextroscoliosis of the lumbar spine. Normal conus medullaris that terminates at the L2 level. T12-L1: Moderate disc space narrowing with minimal annular bulging. Small Schmorl''s node. Moderate Modic endplate degenerative changes. Normal bilateral facet joints. Normal central canal and bilateral lateral recesses. Normal bilateral intervertebral neural foramina. L1-2: Mild posterior disc space narrowing with slight annular bulging and mild central canal stenosis. Mild facet joint hypertrophy. Mild compression anterior aspect of the cord from retropulsion of the L1 compression deformity. Mild bilateral foraminal stenosis. L2-3: Minimal disc space narrowing without bulging or herniation of the disc. Mild endplate spurring. Mild to moderate facet joint hypertrophy with mild central canal stenosis. Mild to moderate bilateral foraminal stenosis with nerve root impingement. L3-4: Normal endplates. Disc desiccation. Normal disc height and morphology. Mild to moderate facet joint hypertrophy. Normal central canal and bilateral lateral recesses. Mild to moderate left foraminal stenosis with posterior nerve root impingement. Normal right neural foramen. L4-5: Diffuse disc desiccation with mild posterior disc space narrowing but no bulge or herniation of the disc. Mild to moderate facet joint hypertrophy. Mild to moderate left foraminal stenosis with posterior nerve root impingement. Normal right neural foramen. Normal central canal and bilateral lateral recesses. L5-S1: Severe disc space narrowing. Severe bilateral foraminal stenosis with nerve root compression. Moderate central canal stenosis. Moderate facet joint hypertrophy. Normal visualized sacral ala. There is moderate paraspinal muscular atrophy. MRI/Spine Lumbar (Routine) IMPRESSION: Multilevel degenerative changes, as described above. Electronically Signed: Aaron Mckenna MD at 9:12 [facility] ,
[2024-04-13] MEDS: Morphine 2 MG/ML Syringe IV (10:13)
[2024-04-13] MEDS: 0.9% Saline Lock 10 ML Syringe IV (10:13)
--- NOTE | 2024-04-13 10:49 | PN.HOSP_ITS ---
Subjective Subjective Doing well, no issues overnight. Pain seems to be under little bit better control Objective Data Objective Data Vital Signs: Vital Signs Temp Pulse Resp BP Pulse Ox O2 Del Method 98.2 F 54 L 18 147/77 H 95 Room Air 04/13/24 08:13 04/13/24 08:36 04/13/24 08:13 04/13/24 08:13 04/13/24 08:13 04/13/24 08:15 Oxygen Delivery Method Room Air Weight: 155 lb 9.698 oz Body Mass Index (BMI) 32.5 Intake & Output: Intake and Output for Last 24 Hours 04/12/24 04/13/24 04/14/24 03:59 03:59 03:59 Intake Total 1050 / 1050 300 / 300 350 / 350 Output Total 1100 / 1100 1000 / 1000 300 / 300 Balance -50 / -50 -700 / -700 50 / 50 Lab / Micro Data 04/13/24 06:11 04/13/24 06:11 Labs: Laboratory Results - last 24 hr 04/13/24 06:11: WBC 6.6, RBC 3.81 L, Hgb 12.2, Hct 37.7, MCV 99.0, MCH 32.0, MCHC 32.4, RDW Std Deviation 47.2 H, RDW Coeff of Ok 13.1, Plt Count 267, MPV 9.0, Sodium 139, Potassium 4.1, Chloride 107, Carbon Dioxide 27.0, Anion Gap 5, BUN 18, Creatinine 0.70, Estim Creat Clear Calc 50.81, Est GFR (MDRD) Af Amer 104, Est GFR (MDRD) Non-Af 86, BUN/Creatinine Ratio 25.7 H, Glucose 94, Calcium 9.0 Radiography Diagnostic Testing: Radiology Impression Transvaginal US 04/12/24 06:00 IMPRESSION: Heterogeneous thickening of the endometrial stripe. Clinical correlation recommended. Electronically Signed: Bebo Oseguera MD at 9:01 EST , Physical Exam Narrative General: Alert, Oriented x3, Cooperative, No apparent distress HEENT: Atraumatic, PERRLA, EOMI, Normocephalic Oral: Moist Mucosa Neck: Supple, No JVD Lungs: Clear to auscultation, Normal air movement, No rhonchi, No wheeze, No rales Cardiovascular: Regular rate, Regular Rhythm, Normal S1, Normal S2, No murmurs Abdomen: Soft, Non Tender, Non-Distended, No Hepato-splenomegaly Extremities: No edema, Capillary Refill Less than 3 Seconds, arthritic destruction of her finger joints denies rheumatoid arthritis Skin: No rashes, No breakdown Musculoskeletal: No Tenderness to Palpation of Joints or Extremities Neurological: Numbness and tingling all of her extremities which is baseline for her Psych/Mental Status: Normal Affect, Appropriate Assessment & Plan Assessment/Plan (1) Compression fracture of L1 vertebra: PLAN: Plan # Acute on chronic L1 compression fracture -Appears to have had L1 compression fracture and previous scans however x-ray from the received showed worsening of the fracture and that is around where her pain is located -She has multiple problems from a spine standpoint however specifically is being admitted for pain that is suspected to be due to worsening compression fracture of L1 likely caused by a fall at the end of January with increasing pain -Scheduled Tylenol -Lidocaine patch -Pain control -Schedule bowel regimen -Given the suspicion is this is due to compression fracture will consult pain management -Will repeat x-ray though low suspicion this will exchange trouble shooter as the compression fracture was noted to be worsened on March 30 -04/12: Repeat lumbar x-ray stable, pain management consult in place, continue supportive care. Patient will physical therapy, suspect she will need placement on discharge 04/13/2024: MRI of the lumbar spine per pain management is pending. # Postmenopausal vaginal bleeding -Will order transvaginal ultrasound for better characterization/evaluation -May need inpatient versus outpatient Professional Builder evaluation -Will avoid pharmacologic DVT prophylaxis not for SCDs -04/12: Transvaginal ultrasound pending 04/13/2024: Transvaginal ultrasound with heterogeneous thickening, recommend outpatient follow-up with [facility] #Hypertension -Continue home medications -04/12: BP was on the lower side suspect secondary to pain medication, holding home amlodipine and decreased home metoprolol DVT: SCDs Charges/Coding Visit Charges Inpatient E&M: 90548 Subs Hosp L2
--- NOTE | 2024-04-13 15:09 | CASEMGMT ---
ELIE CM into pt room, pt sitting in chair. Pt states she went down for a MRI today and had OT. She states she is in pain sitting in the chair. Pt states she was told that she may need rehab. Pt states that she is agreeable to this. Provided pt with a SNF list created by dc physician assistant certified. Pt MRI is pending. Pt is aware that should things change and she not need a SNF, this dc plan can be changed. Pt to review for her top 3 preferences. Updated SW at this time.
[2024-04-13] MEDS: MELATONIN 3 MG TABLET PO (20:25)
[2024-04-14] VITALS (13 sets, daily range): BP systolic 110–167; BP diastolic 60–107; PULSE 59–100; RESP 14–18; TEMP 36.2–37.3; O2SAT 95–100
[2024-04-14] MEDS: Baclofen 10 MG Tablet 5 MG PO ×3 (02:21→20:14)
[2024-04-14 05:38] LABS: Hematocrit 36.1 % (37-47); Hemoglobin 11.6 g/dL (12.0-15.0); Mean Corp Hgb Conc 32.1 g/dL (32-36); Mean Corpuscular Hgb 31.9 pg (27.0-32.0); Mean Corpuscular Volume 99.2 fL (81-99); Platelet Count 269 K/mm3 (150-450); RBC Distribution Width CV 13.1 % (11.6-14.6); RBC Distribution Width SD 47.4 fl (35.1-43.9); Red Blood Count 3.64 M/mm3 (4.2-5.4); White Blood Count 7.1 K/mm3 (4.4-11.0)
--- NOTE | 2024-04-14 06:00 | EKG12_ITS ---
Test Reason : PRE-OP Blood Pressure : */* mmHG Vent. Rate : 57 BPM Atrial Rate : 57 BPM P-R Int : 210 ms QRS Dur : 90 ms QT Int : 392 ms P-R-T Axes : -5 -12 59 degrees QTcB Int : 381 ms Sinus bradycardia with 1st degree A-V block with Premature atrial complexes Possible Inferior infarct (cited on or before 06-Apr-2019) Possible Anterior infarct (cited on or before 06-Apr-2019) Abnormal ECG When compared with ECG of 10-Apr-2021 16:47, Premature atrial complexes are now Present Confirmed by MARILYN OROZCO, LAURA ([id number]), brands editor TAYLOR SOUSA ([id number]) on 04/26/2024 2:19:49 PM Referred By: Confirmed By: LAURA SANDERS MD
[2024-04-14 06:17] LABS: Anion Gap 4 (5-15); BUN 20 mg/dL (7-18); Calcium,Total 8.8 mg/dL (8.5-10.1); Chloride 106 mmol/L (98-107); EST Glomerular Filtration Rate 74 mL/min (>60); Est Glom Filt Rate - Afr Amer 89 mL/min (>60); Estimated Creatinine Clearance 50.81 ml/min; Glucose 93 mg/dL (74-106); Potassium 4.3 mmol/L (3.5-5.1); Sodium Level 138 mmol/L (136-145)
--- NOTE | 2024-04-14 08:43 | PCM.CONS.GEN ---
Assessment & Plan Assessment/Plan (1) Age-related osteoporosis with current pathol fracture of vertebra: PLAN: Plan Most recent lumbar XR appears to show worsening L1 compression fracture. Compared to prior. Lumbar MRI showed Chronic fractures at T12 as well as L1. I think there maybe another fracture at L2. L1 and L2 are bright on STIR imaging suggestive of acute fracture? L1 is severely compressed. L2 less so. Plan for L1 or L2 kyphoplasty/vertebroplasty depending upon final MRI read from radiology. 2 gram ancef for preop antibiotics On multimodal pain regimen with some improvement. Continue baclofen 5mg TID PRN for muscle tightness/spasm. As this has been helping PRN soap enema for constipation Not on AC at this time ADDENDUM 04/14/2024: Radiology formal read indicated chronic T12 and L1 fractures. Given chronicity, I will not perform kyphoplasty. Instead will plan for LESI at L1-L2 for radicular pain. Risks and benefits were discussed with patient including the change in plan. Questions were answered HPI Consult Data Date of Consult: 04/14/24 HPI Narrative Reason for Consultation: Back pain HPI Narrative: Has been doing slightly better than yesterday. She still has significant difficulty with ambulation and standing and walking. Of note she does have limitation at baseline prior to injury, but it has worsened significantly. The pain is still quite severe in the low back. She has been up and out of bed a bit with support. She states the baclofen has been helping particularly with improving some of her sleep. [facility] Medical History Dyskinesia of esophagus COVID-19 virus infection (04/10/21) History of non-ST elevation myocardial infarction (NSTEMI) (02/16/15) Encephalopathy Syncope and collapse Nonrheumatic aortic (valve) stenosis Essential (primary) hypertension GERARDO (obstructive sleep apnea) Osteoarthritis Myelopathy Spinal cord lesion Upper GI bleed Obesity (BMI 30-39.9) Home Medications ?Medication ?Instructions ?Recorded ?Last Taken ?Type metoprolol succinate 50 mg 50 mg PO BID blood pressure #60 08/27/17 04/10/24 Rx tablet,extended release 24 hr tabs cholecalciferol (vitamin D3) 125 5,000 unit PO DAILY Supplement 04/03/19 04/10/24 History mcg (5,000 unit) capsule folic acid 1 mg tablet 1 mg PO DAILY Supplement 04/03/19 04/10/24 History vitamin B complex 1 ea PO DAILY Supplement 04/03/19 04/10/24 History acetaminophen 500 mg tablet 1,000 mg (2 x 500 mg) PO Q6H PRN 04/26/19 04/11/24 Rx PRN Pain Score 1-10/10 magnesium 250 mg tablet 400 mg PO DAILY Supplement 01/06/23 04/10/24 History amlodipine 2.5 mg tablet 2.5 mg PO BID blood pressure #180 03/29/24 04/10/24 Rx tabs cyanocobalamin (vitamin B-12) 1,000 mcg PO DAILY 04/11/24 04/10/24 History 1,000 mcg tablet,extended release tramadol 50 mg tablet 50 mg PO BID PRN PRN pain 04/11/24 04/10/24 History turmeric 400 mg capsule 400 mg PO DAILY 04/11/24 04/10/24 History Allergy/AdvReac Type Severity Reaction Status Date / Time hydrochlorothiazide Allergy Intermediate low sodium Verified 04/14/24 10:42 atorvastatin (From Lipitor) Allergy Unknown Verified 04/14/24 10:42 doxazosin (From Cardura) Allergy Other Verified 04/14/24 10:42 lisinopril Allergy Angioedema Verified 04/14/24 10:42 amlodipine (From Norvasc) AdvReac Severe Freezes up Verified 04/14/24 10:42 limbs nifedipine (From Nifedical AdvReac Severe Freezes up Verified 04/14/24 10:42 XL) limbs alendronate sodium (From AdvReac Intermediate GI upset Verified 04/14/24 10:42 Fosamax) codeine AdvReac Unknown Verified 04/14/24 10:42 ibuprofen AdvReac Other Verified 04/14/24 10:42 Family History Father Hypertension Aortic aneurysm Mother Hypertension Sister Hypertension Diabetes Surgical History Status post surgical removal of malignant neoplasm of skin History of cataract extraction Hx of LASIK Status post right foot surgery History of bunionectomy of right great toe History of tonsillectomy History of tonsillectomy History of total right knee replacement History of total left knee replacement History of arthroplasty of right knee Social History household members: caregiver housing: condominium pets and animals: No Smoking Status: Never smoker alcohol intake: never substance use type: does not use caffeine: No what type of physical activity do you participate in: none seatbelt use: always do you feel safe at home: Yes Physical Exam Narrative Lumbar paraspinal tenderness + bilaterally Tenderness into the lumbar flank areas. Lumbar percussion + for pain SLR + bilaterally Hip provocative maneuvers negative Generalized weakness in lower extremities... Patients state this is similar to baseline. Sensation wnl Lab / Micro Data 04/14/24 04:21 04/14/24 04:21 Labs: Laboratory Results - last 24 hr 04/14/24 04:21: WBC 7.1, RBC 3.64 L, Hgb 11.6 L, Hct 36.1 L, MCV 99.2 H, MCH 31.9, MCHC 32.1, RDW Std Deviation 47.4 H, RDW Coeff of Ok 13.1, Plt Count 269, MPV 9.0, Sodium 138, Potassium 4.3, Chloride 106, Carbon Dioxide 27.0, Anion Gap 4 L, BUN 20 H, Creatinine 0.80, Estim Creat Clear Calc 50.81, Est GFR (MDRD) Af Amer 89, Est GFR (MDRD) Non-Af 74, BUN/Creatinine Ratio 25.0 H, Glucose 93, Calcium 8.8 Imaging Radiology Impression Transvaginal US 04/12/24 06:00 IMPRESSION: Heterogeneous thickening of the endometrial stripe. Clinical correlation recommended. Electronically Signed: Bebo Oseguera MD at 9:01 EST ,
--- NOTE | 2024-04-14 09:24 | RAD_ITS ---
STUDY: X-RAY - LUMBAR SPINE REASON FOR EXAM: Female, 78 years old. PAIN TECHNIQUE: 2 view(s) of the lumbar spine were obtained. COMPARISON: None FINDINGS: Intraoperative imaging for L1-L2 injection. RAD/Lumbar Spine 2 or 3 Views IMPRESSION: Intraoperative imaging for L1-L2 injection. Electronically Signed: Bebo Oseguera MD at 14:24 EST ,
--- NOTE | 2024-04-14 11:02 | PRE.ANES_ITS ---
ASA Classification* ASA Classification ASA Classification: 3 Assessment & Plan Anesthesia* Anesthesia Assessment Anesthesia Assessment: Discussed sedation and/or anesthesia options, risks, benefits, and alternatives with patient/parents/legal guardian/POA. Questions invited. The patient/parents/legal guardian/POA seems to understand and agrees to proceed with anesthesia plan. Reviewed the physical assessment, medical history, allergy history and patient home medications list prior to surgery/procedure/anesthetic and documented any changes. Performed airway and anesthesia risk assessments. Anesthesia Type Anesthesia Type: MAC (GA bkup or if requested by surgeon) Anesthesia Focused Assessment* Temperature: 99.1 F Pulse Rate: 60 Blood Pressure: 142/77 Respiratory Rate: 14 Pulse Ox: 95 Airway Assessment Mouth opens: >3 cm Mallampati Score: II Focused Labs Anesthesia Preop lab: CBC WBC 7.1 K/mm3 (4.4-11.0) 04/14/24 04:21 RBC 3.64 M/mm3 (4.2-5.4) L 04/14/24 04:21 Hgb 11.6 g/dL (12.0-15.0) L 04/14/24 04:21 Hct 36.1 % (37-47) L 04/14/24 04:21 Plt Count 269 K/mm3 (150-450) 04/14/24 04:21 CHEMISTRY Potassium 4.3 mmol/L (3.5-5.1) 04/14/24 04:21 Sodium 138 mmol/L (136-145) 04/14/24 04:21 Magnesium 2.3 mg/dL (1.6-2.6) 04/12/24 05:57 BUN 20 mg/dL (7-18) H 04/14/24 04:21 Creatinine 0.80 mg/dL (0.55-1.02) 04/14/24 04:21 Glucose 93 mg/dL (74-106) 04/14/24 04:21 POC Glucose 122 mg/dL (70-110) H 04/06/19 23:23 TSH 0.856 uIU/mL (0.358-3.740) 04/12/24 05:57 COAG PT 13.8 SECONDS (11.7-14.9) 04/12/24 05:57 Pre-Assessment Diagnosis/Proposed Procedure Planned Operative Procedure(s): kyphoplasty L2 Anesthesia History 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 When Was Last Pacemaker Check QUESTION #4 FULL TEXT: You/Your Family Experience fever (hyperthermia) with Anesthesia Last Oral Intake Last Oral intake: Last Oral Intake NPO since Meds taken in AM with sips of water? 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 Female HX of Motion Sickness HX of N/V After Surgery Non-Smoker Duration of Surgery greater than 60 minutes Number of Risk Factors PONV Score Height & Weight Height & Weight: Anesthesia: Height & Weight Height 4 ft 10 in 04/11/24 14:41 Weight: 70.582 kg 04/11/24 14:41 Body Mass Index (BMI) 32.5 04/11/24 14:41 Respiratory Assessment Respiratory Assessment - microfilm machine operator: Respiratory Tract Infection Hx - microfilm machine operator Hx Respiratory Tract Infection No 04/14/24 02:23 STOP Sleep Apnea STOP Sleep Apnea - microfilm machine operator: STOP Sleep Apnea - microfilm machine operator Hx Hypertension Yes 04/12/24 09:47 Hx Sleep Apnea No 04/11/24 14:41 CPAP No 04/11/24 14:41 BIPAP No 04/11/24 14:41 Do you snore loudly (louder No 04/11/24 14:41 than talking or can be heard Do you often feel tired/ No 04/11/24 14:41 fatigued/ sleepy during daytime? Has anyone observed you stop No 04/11/24 14:41 breathing during sleep? STOP Results Negative 04/11/24 14:41 QUESTION #5 FULL TEXT : Do you snore loudly (louder than talking or can be heard through closed doors)? 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 Specify any problems Hx of Preganancy in last 3 No 04/11/24 14:41 Months Nurse Filling Out Transfusion RKALIKASI 04/11/24 14:41 & Questions: Date: 04/11/24 04/11/24 14:41 Time: 14:55 04/11/24 14:41 Patient unable to answer at this time (ie. confused, unrespo /Reproduction History /Reproductive History - microfilm machine operator: /Reproductive Hx- microfilm machine operator Hx Now No 04/14/24 02:23 Gestational Age (in weeks): EDC: Hx Hx Para Hx Section SAB No 04/14/24 02:23 Active Medications Active Medications: Current Medications Generic Name Dose Route Start Last Admin Trade Name Freq PRN Reason Stop Dose Admin Acetaminophen 1,000 mg 04/11/24 14:45 04/14/24 06:30 Acetaminophen 500 Mg Tablet PO Not Given Q8 LILLIAN Albuterol Sulfate 2.5 mg 04/11/24 14:45 Albuterol 2.5 Mg/3 Ml Vial.Neb. INHALATION Q2H PRN PRN SOB &/OR WHEEZING Baclofen 5 mg 04/12/24 19:09 04/14/24 02:21 Baclofen 10 Mg Tablet PO 5 mg TID PRN PRN Administration MUSCLE PAIN/SPASM Cefazolin Sodium 2 gm/ N/A 20 mls @ 400 mls/hr 04/14/24 11:30 IV 04/14/24 11:32 X1 ONE Lidocaine 1 patch 04/12/24 10:00 04/14/24 10:30 Lidocaine 5% Patch TOPICAL Not Given DAILY [facility] Protocol Melatonin 3 mg 04/11/24 14:45 04/13/24 20:25 Melatonin 3 Mg Tablet PO 3 mg QHS PRN PRN Administration INSOMNIA Metoprolol Succinate 12.5 mg 04/12/24 10:00 04/13/24 20:24 Metoprolol(Xl)Succ 25 Mg Tablet PO 12.5 mg BID [facility] Administration Protocol Morphine Sulfate 2 - 4 mg 04/11/24 14:45 04/13/24 10:13 Morphine 2 Mg/Ml Syringe IV 2 mg Q3H PRN PRN Administration Pain Score 6-10 Morphine Sulfate 2 - 4 mg 04/11/24 14:46 Morphine 4 Mg/Ml Syringe IV Q3H PRN PRN Pain Score 6-10 Nystatin 1 applic 04/11/24 22:00 04/14/24 09:02 Nystatin Powder 15gm Bottle TOPICAL Not Given BID [facility] Protocol Ondansetron HCl 4 mg 04/11/24 14:45 Ondansetron 4 Mg/2 Ml Vial IV Q8H PRN PRN NAUSEA/VOMITING Oxycodone HCl 5 mg 04/11/24 14:45 04/13/24 20:25 Oxycodone 5 Mg Tablet PO 5 mg Q4H PRN PRN Administration Pain Score 4-10 Senna/Docusate Sodium 2 tablet 04/11/24 22:00 04/14/24 10:30 Senna/Docusate Sodium 1 Tablet PO Not Given BID [facility] Sodium Chloride 10 - 40 ml 04/11/24 15:03 04/13/24 10:13 0.9% Saline Lock 10 Ml Syringe IV 10 ml UD PRN Administration SALINE FLUSH [facility] Medical History Dyskinesia of esophagus COVID-19 virus infection (04/10/21) History of non-ST elevation myocardial infarction (NSTEMI) (02/16/15) Encephalopathy Syncope and collapse Nonrheumatic aortic (valve) stenosis Essential (primary) hypertension GERARDO (obstructive sleep apnea) Osteoarthritis Myelopathy Spinal cord lesion Upper GI bleed Obesity (BMI 30-39.9) Home Medications ?Medication ?Instructions ?Recorded ?Last Taken ?Type metoprolol succinate 50 mg 50 mg PO BID blood pressure #60 08/27/17 04/10/24 Rx tablet,extended release 24 hr tabs cholecalciferol (vitamin D3) 125 5,000 unit PO DAILY Supplement 04/03/19 04/10/24 History mcg (5,000 unit) capsule folic acid 1 mg tablet 1 mg PO DAILY Supplement 04/03/19 04/10/24 History vitamin B complex 1 ea PO DAILY Supplement 04/03/19 04/10/24 History acetaminophen 500 mg tablet 1,000 mg (2 x 500 mg) PO Q6H PRN 04/26/19 04/11/24 Rx PRN Pain Score 1-10/10 magnesium 250 mg tablet 400 mg PO DAILY Supplement 01/06/23 04/10/24 History amlodipine 2.5 mg tablet 2.5 mg PO BID blood pressure #180 03/29/24 04/10/24 Rx tabs cyanocobalamin (vitamin B-12) 1,000 mcg PO DAILY 04/11/24 04/10/24 History 1,000 mcg tablet,extended release tramadol 50 mg tablet 50 mg PO BID PRN PRN pain 04/11/24 04/10/24 History turmeric 400 mg capsule 400 mg PO DAILY 04/11/24 04/10/24 History Allergy/AdvReac Type Severity Reaction Status Date / Time hydrochlorothiazide Allergy Intermediate low sodium Verified 04/14/24 10:42 atorvastatin (From Lipitor) Allergy Unknown Verified 04/14/24 10:42 doxazosin (From Cardura) Allergy Other Verified 04/14/24 10:42 lisinopril Allergy Angioedema Verified 04/14/24 10:42 amlodipine (From Norvasc) AdvReac Severe Freezes up Verified 04/14/24 10:42 limbs nifedipine (From Nifedical AdvReac Severe Freezes up Verified 04/14/24 10:42 XL) limbs alendronate sodium (From AdvReac Intermediate GI upset Verified 04/14/24 10:42 Fosamax) codeine AdvReac Unknown Verified 04/14/24 10:42 ibuprofen AdvReac Other Verified 04/14/24 10:42 Family History Father Hypertension Aortic aneurysm Mother Hypertension Sister Hypertension Diabetes Surgical History Status post surgical removal of malignant neoplasm of skin History of cataract extraction Hx of LASIK Status post right foot surgery History of bunionectomy of right great toe History of tonsillectomy History of tonsillectomy History of total right knee replacement History of total left knee replacement History of arthroplasty of right knee Social History household members: caregiver housing: [facility] pets and animals: No Smoking Status: Never smoker alcohol intake: never substance use type: does not use caffeine: No what type of physical activity do you participate in: none seatbelt use: always do you feel safe at home: Yes Review of Systems (Anesthesia) ROS Narrative System reviewed and no additional complaints, except as documented.
--- NOTE | 2024-04-14 11:43 | PCM.PN.HOSP ---
Subjective Subjective Doing well, no issues overnight continue with pain bilateral lower extremities. MRI demonstrates severe L5-S1 foraminal stenosis with the L1 compression fracture plan for kyphoplasty today Objective Data Objective Data Vital Signs: Vital Signs Temp Pulse Resp BP Pulse Ox O2 Del Method 99.1 F 60 14 142/77 H 95 Room Air 04/14/24 11:04 04/14/24 11:04 04/14/24 11:04 04/14/24 11:04 04/14/24 11:04 04/14/24 07:55 Oxygen Delivery Method Room Air Weight: 155 lb 9.698 oz Body Mass Index (BMI) 32.5 Intake & Output: Intake and Output for Last 24 Hours 04/13/24 04/14/24 04/15/24 03:59 03:59 03:59 Intake Total 300 / 300 900 / 900 Output Total 1000 / 1000 700 / 700 750 / 750 Balance -700 / -700 200 / 200 -750 / -750 Lab / Micro Data 04/14/24 04:21 04/14/24 04:21 Labs: Laboratory Results - last 24 hr 04/14/24 04:21: WBC 7.1, RBC 3.64 L, Hgb 11.6 L, Hct 36.1 L, MCV 99.2 H, MCH 31.9, MCHC 32.1, RDW Std Deviation 47.4 H, RDW Coeff of Ko 13.1, Plt Count 269, MPV 9.0, Sodium 138, Potassium 4.3, Chloride 106, Carbon Dioxide 27.0, Anion Gap 4 L, BUN 20 H, Creatinine 0.80, Estim Creat Clear Calc 50.81, Est GFR (MDRD) Af Amer 89, Est GFR (MDRD) Non-Af 74, BUN/Creatinine Ratio 25.0 H, Glucose 93, Calcium 8.8 Radiography Diagnostic Testing: Radiology Impression Lumbar Spine MRI 04/13/24 10:00 IMPRESSION: Multilevel degenerative changes, as described above. Electronically Signed: Aaron Mckenna MD at 9:12 EST , Physical Exam Narrative General: Alert, Oriented x3, Cooperative, No apparent distress HEENT: Atraumatic, PERRLA, EOMI, Normocephalic Oral: Moist Mucosa Neck: Supple, No JVD Lungs: Clear to auscultation, Normal air movement, No rhonchi, No wheeze, No rales Cardiovascular: Regular rate, Regular Rhythm, Normal S1, Normal S2, No murmurs Abdomen: Soft, Non Tender, Non-Distended, No Hepato-splenomegaly Extremities: No edema, Capillary Refill Less than 3 Seconds, arthritic destruction of her finger joints denies rheumatoid arthritis Skin: No rashes, No breakdown Musculoskeletal: No Tenderness to Palpation of Joints or Extremities Neurological: Numbness and tingling all of her extremities which is baseline for her Psych/Mental Status: Normal Affect, Appropriate Assessment & Plan Assessment/Plan (1) Compression fracture of L1 vertebra: PLAN: Plan # Acute on chronic L1 compression fracture -Appears to have had L1 compression fracture and previous scans however x-ray from the received showed worsening of the fracture and that is around where her pain is located -She has multiple problems from a spine standpoint however specifically is being admitted for pain that is suspected to be due to worsening compression fracture of L1 likely caused by a fall at the end of January with increasing pain -Scheduled Tylenol -Lidocaine patch -Pain control -Schedule bowel regimen -Given the suspicion is this is due to compression fracture will consult pain management -Will repeat x-ray though low suspicion this will currency exchange specialist as the compression fracture was noted to be worsened on March 30 -04/12: Repeat lumbar x-ray stable, pain management consult in place, continue supportive care. Patient will physical therapy, suspect she will need placement on discharge 04/13/2024: MRI of the lumbar spine per pain management is pending. 04/14/2024: MRI with severe L5-S1 foraminal stenosis and canal narrowing, this is something that needs to be addressed at [facility]. In the meantime the L1 compression fracture will undergo kyphoplasty today # Postmenopausal vaginal bleeding -Will order transvaginal ultrasound for better characterization/evaluation -May need inpatient versus outpatient Precipitator evaluation -Will avoid pharmacologic DVT prophylaxis not for SCDs -04/12: Transvaginal ultrasound pending 04/13/2024: Transvaginal ultrasound with heterogeneous thickening, recommend outpatient follow-up with HEEL BREASTER #Hypertension -Continue home medications -04/12: BP was on the lower side suspect secondary to pain medication, holding home amlodipine and decreased home metoprolol DVT: SCDs Charges/Coding Visit Charges Inpatient E&M: 23106 Subs Hosp L2
[2024-04-14] MEDS: Triamcinolone Acetonide 40 MG/ML Vial (12:07)
--- NOTE | 2024-04-14 12:27 | PCM.POST.ANE ---
Anesthesia: Postop Eval I Current Vital Signs Temperature: 98.0 F Pulse Rate: 75 Blood Pressure: 120/62 Respiratory Rate: 16 Pulse Ox: 96 Assessment Airway patent: Yes Spontaneous unlabored respirations: Yes nausea: No Vomiting: No Anesthesia Complication: No Fluid Hydration Crystalloid volume administer (ml): 200 Total IV fluid infused: 200 Progress Note Anesthesia document: Postop Eval 1 completed: Yes
--- NOTE | 2024-04-14 13:03 | POSTOPAN2_ITS ---
Anesthesia Postop Eval I Sum Postop Eval Completion status Anesthesia document: Postop Eval 1 completed: Yes Anesthesia Postop Eval I Summary Anesthesia Postop Eval I Summary: Anesthesia Postop Eval I: Assessment Summary Airway patent Yes 04/14/24 12:27 HARDBOARD PRESS [email or web address] Spontaneous unlabored Yes 04/14/24 12:27 HARDBOARD PRESS [email or web address] respirations Mental status nausea No 04/14/24 12:27 HARDBOARD PRESS OPERATOR.[email or web address] Vomiting No 04/14/24 12:27 HARDBOARD PRESS [email or web address].[email or web address] Anesthesia Postop Eval I: Fluid Summary Crystalloid volume administer 200 04/14/24 12:27 HARDBOARD PRESS [email or web address] (ml) Colloids volume administered ( ml) Blood Product volume administered (ml) Total IV fluid infused 200 04/14/24 12:27 HARDBOARD PRESS [email or web address].[email or web address] Anesthesia Postop Eval I: Summary Notes Anesthesia Complication No 04/14/24 12:27 HARDBOARD PRESS [email or web address].[email or web address] Anesthesia Complication Comment: Post-operative progress note Anesthesia: Postop Eval II Evaluation Mental status: Awake Pain Level: 0 nausea: No Vomiting: No
--- NOTE | 2024-04-14 13:03 | PCM.POSTANE2 ---
Anesthesia Postop Eval I Sum Postop Eval Completion status Anesthesia document: Postop Eval 1 completed: Yes Anesthesia Postop Eval I Summary Anesthesia Postop Eval I Summary: Anesthesia Postop Eval I: Assessment Summary Airway patent Yes 04/14/24 12:27 EDUCATION GENERAL [email or web address] Spontaneous unlabored Yes 04/14/24 12:27 EDUCATION GENERAL MANAGER.[email or web address] respirations Mental status nausea No 04/14/24 12:27 EDUCATION GENERAL MANAGER.[email or web address] Vomiting No 04/14/24 12:27 EDUCATION GENERAL [email or web address] Anesthesia Postop Eval I: Fluid Summary Crystalloid volume administer 200 04/14/24 12:27 EDUCATION GENERAL [email or web address] (ml) Colloids volume administered ( ml) Blood Product volume administered (ml) Total IV fluid infused 200 04/14/24 12:27 EDUCATION GENERAL MANAGER.[email or web address] Anesthesia Postop Eval I: Summary Notes Anesthesia Complication No 04/14/24 12:27 EDUCATION GENERAL [email or web address] Anesthesia Complication Comment: Post-operative progress note Anesthesia: Postop Eval II Evaluation Mental status: Awake Pain Level: 0 nausea: No Vomiting: No
[2024-04-14] MEDS: Metoprolol(XL)Succ 25 MG Tablet 12.5 MG PO ×2 (13:28→20:13)
[2024-04-14] MEDS: Acetaminophen 500 MG Tablet 1000 MG PO ×2 (13:29→20:13)
--- NOTE | 2024-04-14 13:45 | PCM.OPRPT ---
Operative Report (Standard) Operative Information Date of Procedure: 04/14/24 Pre-Operative Diagnosis: Lumbar radiculopathy Post-Operative Diagnosis: SAME Surgery/Procedure Performed: L1-L2 LESI criminal defense lawyer: No Type of Anesthesia: MAC (SHe was unable to tolerate moving over to bed and positioning well, so had to elect for MAC.) RN Documented Start/Stop Times: Operation Date: 04/14/24 11:30 Case Time Into Pre-Op 04/14/24 10:43 Anesthesia Start 04/14/24 11:45 Into Room 04/14/24 11:45 Out of Pre-Op 04/14/24 11:45 Procedure Start 04/14/24 12:07 Procedure End 04/14/24 12:09 Anesthesia End 04/14/24 12:14 Out of Room 04/14/24 12:14 Into Recovery 04/14/24 12:20 Out of Recovery 04/14/24 12:46 Procedure Start Time: 12:07 Procedure Stop Time: 12:09 Select all DRAINS/GRAFTS/IMPLANTS that apply: None Estimated Blood Loss: nil Specimen collected: No Description of surgery: The patient was admitted to the preoperative area and a time out was performed. Vital signs were checked and the patient was moved to the procedure area and placed in the prone position. Standard monitors were applied. Sterile prep and draped performed in a regular manner. The appropriate level was identified under fluoroscopic guidance. Local anesthesia was administered using Lidocaine 0.5%, to anesthetize the skin and subcutaneous tissue with 25G needle. Next a 19G Touhy needle was inserted under fluoroscopic guidance. Using the loss of resistance technique, the epidural space was identified. Needle position was confirmed on an AP and lateral views as required. Contrast material, Omnipaque 2 cc, was injected under fluoroscopic guidance and showed appropriate epidurogram and epidural spread. Negative Blood and CSF aspiration was confirmed. A mixture of 5 ml of normal saline and 60 mg of Triamcinolone was injected. The patient tolerated the procedure well. The needle was removed intact. The patient was cleansed, and a Band-Aid was placed. Moving all extremities after procedure. Surgical Findings: n/a Complications Complications: No
--- NOTE | 2024-04-14 16:29 | NURSING ---
All documentation by director nursing service Xenia Cruz reviewed by director nursing service Tami WERNER, RN.
[2024-04-14] MEDS: oxyCODONE 5 MG Tablet PO (17:49)
[2024-04-14] MEDS: Senna/Docusate Sodium 1 Tablet 2 TABLET PO (20:13)
[2024-04-14] MEDS: Nystatin Powder 15gm Bottle 1 APPLIC TOPICAL (20:16)
[2024-04-15 02:13] VITALS: BP 134/83; PULSE 58; RESP 16; TEMP 36.4; O2SAT 94
[2024-04-15] MEDS: Acetaminophen 500 MG Tablet 1000 MG PO ×3 (06:13→21:06)
[2024-04-15 06:39] LABS: Hematocrit 37.2 % (37-47); Hemoglobin 12.2 g/dL (12.0-15.0); Mean Corp Hgb Conc 32.8 g/dL (32-36); Mean Corpuscular Hgb 31.9 pg (27.0-32.0); Mean Corpuscular Volume 97.4 fL (81-99); Mean Platelet Vol. 8.9 fl (6.2-12.0); Platelet Count 281 K/mm3 (150-450); RBC Distribution Width SD 46.1 fl (35.1-43.9); Red Blood Count 3.82 M/mm3 (4.2-5.4); White Blood Count 9.4 K/mm3 (4.4-11.0)
[2024-04-15 07:07] LABS: Anion Gap 5 (5-15); BUN 19 mg/dL (7-18); BUN/Creat Ratio 27.9 RATIO (10-20); Calcium,Total 9.2 mg/dL (8.5-10.1); Chloride 107 mmol/L (98-107); Creatinine, Serum 0.68 mg/dL (0.55-1.02); EST Glomerular Filtration Rate 89 mL/min (>60); Est Glom Filt Rate - Afr Amer 107 mL/min (>60); Estimated Creatinine Clearance 50.81 ml/min; Glucose 119 mg/dL (74-106); Potassium 4.4 mmol/L (3.5-5.1); Sodium Level 138 mmol/L (136-145)
[2024-04-15 08:00] VITALS: BP 145/86; PULSE 87; RESP 16; TEMP 37; O2SAT 98
--- NOTE | 2024-04-15 10:31 | CASEMGMT ---
Addendum entered by Jaycee London 04/15/24 11:39: TCU accepted referral. [facility] updated pt. SW remains available to follow. Plan: TCU; pend precert [facility] Original Note: Social Work- SW received notice that pt would like referral to TCU. [facility] completed referral. Plan: TCU; pend acceptance [facility]
--- NOTE | 2024-04-15 10:32 | CASEMGMT ---
ELIE CHOWDHURY into pt room, pt sitting up in chair. Pt states she worked with therapy today. She has decided from her list that she would like to go to [facility]. Pt is aware that this RN LUCIANA will notify the SW and SW will follow up with her. Updated SW.
--- NOTE | 2024-04-15 10:46 | PN.HOSP_ITS ---
Subjective Subjective Doing well, no issues overnight. Did not have kyphoplasty yesterday had epidural injection for pain this is likely due to the fact that she cannot lay on her abdomen Objective Data Objective Data Vital Signs: Vital Signs Temp Pulse Resp BP Pulse Ox O2 Del Method 97.6 F L 58 L 16 134/83 H 94 Room Air 04/15/24 02:13 04/15/24 02:13 04/15/24 02:13 04/15/24 02:13 04/15/24 02:13 04/15/24 02:15 Oxygen Delivery Method Room Air Weight: 155 lb 9.698 oz Body Mass Index (BMI) 32.5 Intake & Output: Intake and Output for Last 24 Hours 04/14/24 04/15/24 04/16/24 03:59 03:59 03:59 Intake Total 900 / 900 100 / 100 50 / 50 Output Total 700 / 700 950 / 950 150 / 150 Balance 200 / 200 -850 / -850 -100 / -100 Lab / Micro Data 04/15/24 06:13 04/15/24 06:13 Labs: Laboratory Results - last 24 hr 04/15/24 06:13: WBC 9.4, RBC 3.82 L, Hgb 12.2, Hct 37.2, MCV 97.4, MCH 31.9, MCHC 32.8, RDW Std Deviation 46.1 H, RDW Coeff of Ok 13.0, Plt Count 281, MPV 8.9, Sodium 138, Potassium 4.4, Chloride 107, Carbon Dioxide 26.0, Anion Gap 5, BUN 19 H, Creatinine 0.68, Estim Creat Clear Calc 50.81, Est GFR (MDRD) Af Amer 107, Est GFR (MDRD) Non-Af 89, BUN/Creatinine Ratio 27.9 H, Glucose 119 H, Calcium 9.2 Radiography Diagnostic Testing: Radiology Impression Lumbar Spine X-Ray 04/14/24 09:24 IMPRESSION: Intraoperative imaging for L1-L2 injection. Electronically Signed: Bebo Oseguera MD at 14:24 EST , Physical Exam Narrative General: Alert, Oriented x3, Cooperative, No apparent distress HEENT: Atraumatic, PERRLA, EOMI, Normocephalic Oral: Moist Mucosa Neck: Supple, No JVD Lungs: Clear to auscultation, Normal air movement, No rhonchi, No wheeze, No rales Cardiovascular: Regular rate, Regular Rhythm, Normal S1, Normal S2, No murmurs Abdomen: Soft, Non Tender, Non-Distended, No Hepato-splenomegaly Extremities: No edema, Capillary Refill Less than 3 Seconds, arthritic destruction of her finger joints denies rheumatoid arthritis Skin: No rashes, No breakdown Musculoskeletal: No Tenderness to Palpation of Joints or Extremities Neurological: Numbness and tingling all of her extremities which is baseline for her Psych/Mental Status: Normal Affect, Appropriate Assessment & Plan Assessment/Plan (1) Compression fracture of L1 vertebra: PLAN: Plan # Acute on chronic L1 compression fracture -Appears to have had L1 compression fracture and previous scans however x-ray from the received showed worsening of the fracture and that is around where her pain is located -She has multiple problems from a spine standpoint however specifically is being admitted for pain that is suspected to be due to worsening compression fracture of L1 likely caused by a fall at the end of January with increasing pain -Scheduled Tylenol -Lidocaine patch -Pain control -Schedule bowel regimen -Given the suspicion is this is due to compression fracture will consult pain management -Will repeat x-ray though low suspicion this will private branch exchange service advisor as the compression fracture was noted to be worsened on March 30 -04/12: Repeat lumbar x-ray stable, pain management consult in place, continue supportive care. Patient will physical therapy, suspect she will need placement on discharge 04/13/2024: MRI of the lumbar spine per pain management is pending. 04/14/2024: MRI with severe L5-S1 foraminal stenosis and canal narrowing, this is something that needs to be addressed at [facility]. In the meantime the L1 compression fracture will undergo kyphoplasty today 04/15/2024: Did not undergo kyphoplasty. She is to follow-up with [facility] for L5-S1 disease, will plan for PT[facility] # Postmenopausal vaginal bleeding -Will order transvaginal ultrasound for better characterization/evaluation -May need inpatient versus outpatient Commercial Construction Estimator evaluation -Will avoid pharmacologic DVT prophylaxis not for SCDs -04/12: Transvaginal ultrasound pending 04/13/2024: Transvaginal ultrasound with heterogeneous thickening, recommend outpatient follow-up with FAMILY LAW LEGAL ASSISTANT #Hypertension -Continue home medications -04/12: BP was on the lower side suspect secondary to pain medication, holding home amlodipine and decreased home metoprolol DVT: SCDs Charges/Coding Visit Charges Inpatient E&M: 71771 Subs Hosp L2
[2024-04-15] MEDS: Nystatin Powder 15gm Bottle 1 APPLIC TOPICAL ×2 (11:02→21:05)
[2024-04-15] MEDS: Lidocaine 5% Patch 1 PATCH TOPICAL (11:02)
[2024-04-15 11:03] VITALS: PULSE 81
[2024-04-15] MEDS: Metoprolol(XL)Succ 25 MG Tablet 12.5 MG PO ×2 (11:03→21:05)
[2024-04-15] MEDS: oxyCODONE 5 MG Tablet PO ×3 (11:08→23:45)
[2024-04-15] MEDS: Baclofen 10 MG Tablet 5 MG PO ×2 (11:08→21:06)
[2024-04-15 17:00] VITALS: BP 114/65; PULSE 72; RESP 16; TEMP 37.2; O2SAT 97
[2024-04-15 21:05] VITALS: BP 122/96; PULSE 62
[2024-04-15 21:16] VITALS: BP 122/96; PULSE 62; RESP 16; TEMP 36.9; O2SAT 93
[2024-04-16 03:47] VITALS: BP 146/80; PULSE 54; RESP 16; TEMP 36.6; O2SAT 96
[2024-04-16] MEDS: Baclofen 10 MG Tablet 5 MG PO ×2 (05:38→14:07)
[2024-04-16] MEDS: Acetaminophen 500 MG Tablet 1000 MG PO ×2 (05:39→14:07)
[2024-04-16 06:05] LABS: Hematocrit 36.8 % (37-47); Hemoglobin 11.9 g/dL (12.0-15.0); Mean Corp Hgb Conc 32.3 g/dL (32-36); Mean Corpuscular Hgb 31.6 pg (27.0-32.0); Mean Corpuscular Volume 97.6 fL (81-99); Mean Platelet Vol. 8.8 fl (6.2-12.0); Platelet Count 252 K/mm3 (150-450); RBC Distribution Width SD 46.3 fl (35.1-43.9); Red Blood Count 3.77 M/mm3 (4.2-5.4); White Blood Count 8.7 K/mm3 (4.4-11.0)
[2024-04-16 06:48] LABS: Anion Gap 5 (5-15); BUN 21 mg/dL (7-18); Calcium,Total 9.3 mg/dL (8.5-10.1); Chloride 107 mmol/L (98-107); Creatinine, Serum 0.68 mg/dL (0.55-1.02); EST Glomerular Filtration Rate 89 mL/min (>60); Est Glom Filt Rate - Afr Amer 108 mL/min (>60); Estimated Creatinine Clearance 50.81 ml/min; Glucose 113 mg/dL (74-106); Potassium 4.5 mmol/L (3.5-5.1); Sodium Level 137 mmol/L (136-145)
--- NOTE | 2024-04-16 09:51 | PCM.PN.HOSP ---
Subjective Subjective No issues overnight Objective Data Objective Data Vital Signs: Vital Signs Temp Pulse Resp BP Pulse Ox O2 Del Method 97.9 F 54 L 16 146/80 H 96 Room Air 04/16/24 03:47 04/16/24 03:47 04/16/24 03:47 04/16/24 03:47 04/16/24 03:47 04/16/24 03:47 Oxygen Delivery Method Room Air Weight: 155 lb 9.707 oz Body Mass Index (BMI) 32.5 Intake & Output: Intake and Output for Last 24 Hours 04/15/24 04/16/24 04/17/24 03:59 03:59 03:59 Intake Total 100 / 100 1750 / 1750 Output Total 950 / 950 800 / 800 600 / 600 Balance -850 / -850 950 / 950 -600 / -600 Lab / Micro Data 04/16/24 05:48 04/16/24 05:48 Labs: Laboratory Results - last 24 hr 04/16/24 05:48: WBC 8.7, RBC 3.77 L, Hgb 11.9 L, Hct 36.8 L, MCV 97.6, MCH 31.6, MCHC 32.3, RDW Std Deviation 46.3 H, RDW Coeff of Ok 13.0, Plt Count 252, MPV 8.8, Sodium 137, Potassium 4.5, Chloride 107, Carbon Dioxide 25.0, Anion Gap 5, BUN 21 H, Creatinine 0.68, Estim Creat Clear Calc 50.81, Est GFR (MDRD) Af Amer 108, Est GFR (MDRD) Non-Af 89, BUN/Creatinine Ratio 31.0 H, Glucose 113 H, Calcium 9.3 Physical Exam Narrative General: Alert, Oriented x3, Cooperative, No apparent distress HEENT: Atraumatic, PERRLA, EOMI, Normocephalic Oral: Moist Mucosa Neck: Supple, No JVD Lungs: Clear to auscultation, Normal air movement, No rhonchi, No wheeze, No rales Cardiovascular: Regular rate, Regular Rhythm, Normal S1, Normal S2, No murmurs Abdomen: Soft, Non Tender, Non-Distended, No Hepato-splenomegaly Extremities: No edema, Capillary Refill Less than 3 Seconds, arthritic destruction of her finger joints denies rheumatoid arthritis Skin: No rashes, No breakdown Musculoskeletal: No Tenderness to Palpation of Joints or Extremities Neurological: Numbness and tingling all of her extremities which is baseline for her Psych/Mental Status: Normal Affect, Appropriate Assessment & Plan Assessment/Plan (1) Compression fracture of L1 vertebra: PLAN: Plan # Acute on chronic L1 compression fracture -Appears to have had L1 compression fracture and previous scans however x-ray from the received showed worsening of the fracture and that is around where her pain is located -She has multiple problems from a spine standpoint however specifically is being admitted for pain that is suspected to be due to worsening compression fracture of L1 likely caused by a fall at the end of January with increasing pain -Scheduled Tylenol -Lidocaine patch -Pain control -Schedule bowel regimen -Given the suspicion is this is due to compression fracture will consult pain management -Will repeat x-ray though low suspicion this will record changer tester as the compression fracture was noted to be worsened on March 30 -04/12: Repeat lumbar x-ray stable, pain management consult in place, continue supportive care. Patient will physical therapy, suspect she will need placement on discharge 04/13/2024: MRI of the lumbar spine per pain management is pending. 04/14/2024: MRI with severe L5-S1 foraminal stenosis and canal narrowing, this is something that needs to be addressed at [facility]. In the meantime the L1 compression fracture will undergo kyphoplasty today 04/15/2024: Did not undergo kyphoplasty. She is to follow-up with [facility] for L5-S1 disease, will plan for PT/OT on the outpatient basis at the longterm facility 04/16/2024: Awaiting pre-CERT for SNF # Postmenopausal vaginal bleeding -Will order transvaginal ultrasound for better characterization/evaluation -May need inpatient versus outpatient Contracts Specialist evaluation -Will avoid pharmacologic DVT prophylaxis not for SCDs -04/12: Transvaginal ultrasound pending 04/13/2024: Transvaginal ultrasound with heterogeneous thickening, recommend outpatient follow-up with SUPERVISOR NETWORK CONTROL OPERATORS #Hypertension -Continue home medications -04/12: BP was on the lower side suspect secondary to pain medication, holding home amlodipine and decreased home metoprolol DVT: SCDs Charges/Coding Visit Charges Inpatient E&M: 10574 Subs Hosp L1
[2024-04-16 10:10] VITALS: BP 109/71; PULSE 68; RESP 18; TEMP 36.8; O2SAT 95
[2024-04-16 10:13] VITALS: PULSE 70
[2024-04-16 10:20] VITALS: PULSE 70
[2024-04-16] MEDS: Metoprolol(XL)Succ 25 MG Tablet 12.5 MG PO (10:20)
[2024-04-16] MEDS: Lidocaine 5% Patch 1 PATCH TOPICAL (10:20)
[2024-04-16] MEDS: Senna/Docusate Sodium 1 Tablet 2 TABLET PO (10:20)
[2024-04-16] MEDS: oxyCODONE 5 MG Tablet PO (10:29)
--- NOTE | 2024-04-16 11:18 | CASEMGMT ---
Addendum entered by Jaycee London 04/16/24 11:31: [facility] updated contacts in chart, as pt sister Obdulia was incorrectly listed as a daughter. Obdulia now listed as sister. [facility] Original Note: Social Work- SW met with pt to discuss pending d/c to TCU. SW also provided education and printed materials for HCPOA, as pt sister had questions. Pt reports that she believes that she has directives at home, but is uncertain. SW provided information on the legal hierarchy; pt reports that she would want her two sisters to make decisions and they are the closest relatives in legal succession. SW encouraged pt to read over packet in regards to wishes for living will and offered that staff is available to assist with completion if desired. SW remains available to follow. Plan: TCU; skilled level of care [facility]
--- NOTE | 2024-04-16 12:01 | PCM.TXEXTCAR ---
Diet Diet Order/Speech Therapy: 04/14/24 14:09 Diet: Cardiac - Heart Healthy Routine Orders/Code Status Routine Lab Work: CBC and BMP Code Status: Full Code DC O2, CPAP, BIPAP needs Home O2 Discharge instructions: No Wound(s) left abd: Wound Type: Skin Tear lumbar back: Wound Type: Puncture Therapies Physical Therapy: Eval and Treat Occupational Therapy: Eval and Treat Problem/Diagnosis (1) Compression fracture of L1 vertebra: Status: Acute Code(s): S32.010A - Wedge compression fracture of first lumbar vertebra, initial encounter for closed fracture Plan # Acute on chronic L1 compression fracture -Appears to have had L1 compression fracture and previous scans however x-ray from the received showed worsening of the fracture and that is around where her pain is located -She has multiple problems from a spine standpoint however specifically is being admitted for pain that is suspected to be due to worsening compression fracture of L1 likely caused by a fall at the end of January with increasing pain -Scheduled Tylenol -Lidocaine patch -Pain control -Schedule bowel regimen -Given the suspicion is this is due to compression fracture will consult pain management -Will repeat x-ray though low suspicion this will environmental change analyst as the compression fracture was noted to be worsened on March 30 -04/12: Repeat lumbar x-ray stable, pain management consult in place, continue supportive care. Patient will physical therapy, suspect she will need placement on discharge 04/13/2024: MRI of the lumbar spine per pain management is pending. 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. In the meantime the L1 compression fracture will undergo kyphoplasty today 04/15/2024: Did not undergo kyphoplasty. She is to follow-up with [facility] for L5-S1 disease, will plan for PT/OT [facility] the [facility] basis [facility] 04/16/2024: Awaiting pre-CERT for SNF # Postmenopausal vaginal bleeding -Will order transvaginal ultrasound for better characterization/evaluation -May need inpatient versus outpatient Project/Production Manager Imaging evaluation -Will avoid pharmacologic DVT prophylaxis not for SCDs -04/12: Transvaginal ultrasound pending 04/13/2024: Transvaginal ultrasound with heterogeneous thickening, recommend outpatient follow-up with WIRE WEB WORKER #Hypertension -Continue home medications -1/13: BP was on the lower side suspect secondary to pain medication, holding home amlodipine and decreased home metoprolol DVT: SCDs Allergies/Procedures Done in Hospital Allergies hydrochlorothiazide Allergy (Intermediate, Verified 04/14/24 10:42) low sodium atorvastatin (From Lipitor) Allergy (Verified 04/14/24 10:42) Unknown doxazosin (From Cardura) Allergy (Verified 04/14/24 10:42) Other VASOVAGAL lisinopril Allergy (Verified 04/14/24 10:42) Angioedema amlodipine (From Norvasc) Adverse Reaction (Severe, Verified 04/14/24 10:42) Freezes up limbs nifedipine (From Nifedical XL) Adverse Reaction (Severe, Verified 04/14/24 10:42) Freezes up limbs alendronate sodium (From Fosamax) Adverse Reaction (Intermediate, Verified 04/14/24 10:42) GI upset codeine Adverse Reaction (Verified 04/14/24 10:42) Unknown ibuprofen Adverse Reaction (Verified 04/14/24 10:42) Other Procedures: - (L1-L2 LESI) Type of Care/Length of Stay Estimated LOS: Convalescent Care Less Than 30 days Type of Care Needed: Skilled Rehab Potential: Good Prognosis: Good Additional Orders/Day of Discharge Day of Discharge: 04/16/24 Dietary and Speech Recommendations Dietitian Recommendations/Changes: Continue cardiac diet. Will monitor weight, as available. Reviewed and approved by Francisca Villa RDN, LD. Discharge Plan Admission Admit Date/Time: 04/14/24 15:42 Attending Provider: Gabo Hernandez Primary Care Provider: Michael Snowden Chi Consulting Providers: Aissatou Lieberman; Lesli Watkins Discharge Orders/Prescriptions Prescriptions: New sennosides-docusate sodium [Stimulant Laxative Plus] 8.6-50 mg Tablet 2 tab PO BID Qty: 0 0RF baclofen 10 mg Tablet 5 mg PO TID PRN PRN (Reason: MUSCLE PAIN/SPASM) Qty: 0 0RF lidocaine 5 % Adhesive Patch,Medicated 1 patch topical DAILY Qty: 0 0RF Protocol: *Topical Application Instructions APPLICATION INSTRUCTIONS: Lumbar spine metoprolol succinate 25 mg Tablet Extended Release 24 Hr 12.5 mg PO BID Qty: 0 0RF nystatin [Nyamyc] 100,000 unit/gram Powder 1 applic topical BID Qty: 0 0RF Protocol: *Topical Application Instructions APPLICATION INSTRUCTIONS: abdominal folds oxycodone 5 mg Tablet 5 mg PO Q4H PRN PRN (Reason: Pain Score 4-10) Qty: 0 0RF Continued vitamin B complex 1 EACH tablet 1 ea PO DAILY folic acid 1 MG tablet 1 mg PO DAILY cholecalciferol (vitamin D3) 5,000 UNIT capsule 5,000 unit PO DAILY magnesium 250 mg tablet 400 mg PO DAILY acetaminophen 500 MG tablet 1,000 mg PO Q6H PRN PRN (Reason: Pain Score 1-10/10) 0RF cyanocobalamin (vitamin B-12) 1,000 mcg tablet extended release 1,000 mcg PO DAILY tramadol 50 mg tablet 50 mg PO BID PRN PRN (Reason: pain) turmeric 400 mg capsule 400 mg PO DAILY amlodipine 2.5 mg tablet 2.5 mg PO BID Qty: 180 3RF Discontinued metoprolol succinate 50 MG tablet 50 mg PO BID Qty: 60 0RF Referrals / Follow Up: Michael Snowden Chi, MD [Primary Care Provider] - Disposition Disposition (needs filled in before D/C Order can be placed): [facility]
--- NOTE | 2024-04-16 12:25 | PCM.DC.SUM ---
Providers Date of Admission: 04/14/24 Primary Care Physician: Dr. Michael Snowden MD Consultations 04/11/24 14:45 Consult: Pain Management Routine Consulting Provider: Aissatou Lieberman Reason for Consult: Worsened L1 compression fx with worsened pain EMERGENT Consult: No MD Notified: Yes Date Notified: 04/12/24 Time Notified: 10:20 Method of Notification: Answering Service Reason For Visit: LUMBAR COMPRESSION FRACTURE W/PAIN Diagnosis Discharge Diagnosis (1) Compression fracture of L1 vertebra: Status: Acute Code(s): S32.010A - Wedge compression fracture of first lumbar vertebra, initial encounter for closed fracture Medications at Discharge Home Medications cholecalciferol (vitamin D3) 125 mcg (5,000 unit) capsule 5,000 unit PO DAILY Supplement 04/03/19 folic acid 1 mg tablet 1 mg PO DAILY Supplement 04/03/19 vitamin B complex 1 ea PO DAILY Supplement 04/03/19 acetaminophen 500 mg tablet 1,000 mg (2 x 500 mg) PO Q6H PRN PRN Pain Score 1-01/0704/26/19 magnesium 250 mg tablet 400 mg PO DAILY Supplement 01/06/23 amlodipine 2.5 mg tablet 2.5 mg PO BID blood pressure #180 tabs 03/29/24 cyanocobalamin (vitamin B-12) 1,000 mcg tablet,extended release 1,000 mcg PO DAILY 04/11/24 tramadol 50 mg tablet 50 mg PO BID PRN PRN pain 04/11/24 turmeric 400 mg capsule 400 mg PO DAILY 04/11/24 baclofen 10 mg tablet 5 mg (1/2 x 10 mg) PO TID PRN PRN MUSCLE PAIN/SPASM #0 tabs 04/16/24 lidocaine 5 % topical patch 1 patch topical DAILY #0 ea 04/16/24 metoprolol succinate 25 mg tablet,extended release 24 hr 12.5 mg (1/2 x 25 mg) PO BID #0 tabs 04/16/24 nystatin 100,000 unit/gram topical powder (Nyamyc) 1 applic topical BID #0 grams 04/16/24 oxycodone 5 mg tablet 5 mg PO Q4H PRN PRN Pain Score 4-10 #0 tabs 04/16/24 sennosides 8.6 mg-docusate sodium 50 mg tablet (Stimulant Laxative Plus) 2 tab PO BID #0 tabs 04/16/24 Hospital Course Operations None Procedures - (L1-L2 LESI) Summary of Care Provided Minutes Spent on Discharge: 35 Hospital Course: Per HPI: JUWAN DAVIES, is a 78 F with a history of hypertension, sarcoidosis, neuropathy presented [facility] ED 04/11/2024 with worsening lower back pain leading to difficulty with ADLs/ambulation. Patient had lumbar x-ray on [place] which showed worsening L1 compression fracture but she was able to be discharged home, patient returned today and labs benign so hospitalist contacted for admission for PT/OT, pain control, and likely placement. She was asked if she would prefer to go to [facility] given she is pending evaluation however she preferred to be admitted to our institution and understands that she will likely not be able to make her clean clinic appointment on Friday regarding her decree sensation. Patient evaluated with sister at bedside. 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 Because of that she has had some chronic numbness in her feet and hands. Also has some chronic back pain somewhat diffusely and saw Dr. Shipley in the office in October. 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 Her appointment is on Friday however she reports she was probably going to cancel it thanks it is supposed to be cold and because of the pain she was worried she would not be able to make it to the appointment. Patient had a fall around and several weeks later began to have worsening of pain in her lumbar spine that was not responding as well to physical therapy which she was still undergoing. Patient has chronic hand and feet numbness and reports some chronic right lower extremity numbness, she said it almost feels more numb than usual but is unsure, fairly poor historian. Sometimes when she is going to use the restroom and she is trying to get her pants down she will lose her balance and she will have to sit down on the toilet seat. Reports she has some difficulty holding her bladder but this is not new, has had some constipation and she has been getting tramadol on an outpatient basis and she does not find that the medication is helpful and she thinks if anything it is worsening it. Additionally patient reported she has been having some vaginal bleeding for several weeks. Mostly spotting but today was slightly more intensive. Not following with a usability architect and has not had this evaluated. Hospital Course: # Acute on chronic L1 compression fracture -Appears to have had L1 compression fracture and previous scans however x-ray from the received showed worsening of the fracture and that is around where her pain is located -She has multiple problems from a spine standpoint however specifically is being admitted for pain that is suspected to be due to worsening compression fracture of L1 likely caused by a fall at the end of January with increasing pain -Scheduled Tylenol -Lidocaine patch -Pain control -Schedule bowel regimen -Given the suspicion is this is due to compression fracture will consult pain management -Will repeat x-ray though low suspicion this will change coordinator as the compression fracture was noted to be worsened on March 30 -04/12: Repeat lumbar x-ray stable, pain management consult in place, continue supportive care. Patient will physical therapy, suspect she will need placement on discharge 04/13/2024: MRI of the lumbar spine per pain management is pending. 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 In the meantime the L1 compression fracture will undergo kyphoplasty today 04/15/2024: Did not undergo kyphoplasty, I believe due to the fact that she cannot lay on her stomach. She is to follow-up with [facility] for L5-S1 disease, will plan for PT/OT on the outpatient basis at the [facility] facility 04/16/2024: I discussed with her the plan for discharge and she expressed understanding respect to going to the long term and would like to go discharge on a rehab. Will continue with her multimodal pain management while here. She did receive a epidural injection but no kyphoplasty for her L1 compression fracture. And she will still need to follow-up with [facility] after her stay in rehab for her L5-S1 disease. # Postmenopausal vaginal bleeding -Will order transvaginal ultrasound for better characterization/evaluation -May need inpatient versus outpatient Senior Clerk evaluation -Will avoid pharmacologic DVT prophylaxis not for SCDs -04/12: Transvaginal ultrasound pending 04/13/2024: Transvaginal ultrasound with heterogeneous thickening, recommend outpatient follow-up with [facility] #Hypertension -Continue home medications -04/12: BP was on the lower side suspect secondary to pain medication, holding home amlodipine and decreased home metoprolol 04/16/2024: Will restart her Norvasc on discharge of 2.5 mg twice daily, her metoprolol was decreased from 50 mg p.o. twice daily to 12-1/2 mg p.o. twice daily these may need to be adjusted back up once she becomes more physically active. Physical Exam Narrative General: Alert, Oriented x3, Cooperative, No apparent distress HEENT: Atraumatic, PERRLA, EOMI, Normocephalic Oral: Moist Mucosa Neck: Supple, No JVD Lungs: Clear to auscultation, Normal air movement, No rhonchi, No wheeze, No rales Cardiovascular: Regular rate, Regular Rhythm, Normal S1, Normal S2, No murmurs Abdomen: Soft, Non Tender, Non-Distended, No Hepato-splenomegaly Extremities: No edema, Capillary Refill Less than 3 Seconds, arthritic destruction of her finger joints denies rheumatoid arthritis Skin: No rashes, No breakdown Musculoskeletal: No Tenderness to Palpation of Joints or Extremities Neurological: Numbness and tingling all of her extremities which is baseline for her Psych/Mental Status: Normal Affect, Appropriate Weight / BMI Weight Weight: 155 lb 9.707 oz Body Mass Index (BMI) 32.5 ABG / Lab / Microbiology Data 04/16/24 05:48 04/16/24 05:48 Laboratory: Laboratory Results - last 24 hr 04/16/24 05:48: WBC 8.7, RBC 3.77 L, Hgb 11.9 L, Hct 36.8 L, MCV 97.6, MCH 31.6, MCHC 32.3, RDW Std Deviation 46.3 H, RDW Coeff of Ok 13.0, Plt Count 252, MPV 8.8, Sodium 137, Potassium 4.5, Chloride 107, Carbon Dioxide 25.0, Anion Gap 5, BUN 21 H, Creatinine 0.68, Estim Creat Clear Calc 50.81, Est GFR (MDRD) Af Amer 108, Est GFR (MDRD) Non-Af 89, BUN/Creatinine Ratio 31.0 H, Glucose 113 H, Calcium 9.3 D/C Instructions DC O2, CPAP, BIPAP Needs Home O2 Discharge instructions: No Meaningful Use Info Meaningful Use Meaningful Use Diagnoses (Choose all that apply): None applicable Ischemic Stroke Statin Dosing Therapy Reference: STATIN DOSE THERAPY REFERENCE: * Patients > 75 years receive moderate or high dose statin therapy. * Patients 75 years or YOUNGER should receive HIGH intensity statin dose unless contraindicated. You will be required to document reason for non-treatment if statin daily dose does not meet guidelines. HIGH DOSE STATIN THERAPY DAILY Atorvastatin > than or = to 40 mg Rosuvastatin > than or = to 20 mg Amlodipine + Atorvastatin > than or = to 2.5/40 mg Ezetimibe + Simvastatin 10/80 mg Simvastatin 80mg Discharge Plan Admission Admit Date/Time: 04/14/24 15:42 Attending Provider: Gabo Hernandez Primary Care Provider: Michael Snowden Chi Consulting Providers: Aissatou Lieberman; Lesli Watkins Discharge Orders/Prescriptions Prescriptions: New sennosides-docusate sodium [Stimulant Laxative Plus] 8.6-50 mg Tablet 2 tab PO BID Qty: 0 0RF baclofen 10 mg Tablet 5 mg PO TID PRN PRN (Reason: MUSCLE PAIN/SPASM) Qty: 0 0RF lidocaine 5 % Adhesive Patch,Medicated 1 patch topical DAILY Qty: 0 0RF Protocol: *Topical Application Instructions APPLICATION INSTRUCTIONS: Lumbar spine metoprolol succinate 25 mg Tablet Extended Release 24 Hr 12.5 mg PO BID Qty: 0 0RF nystatin [Nyamyc] 100,000 unit/gram Powder 1 applic topical BID Qty: 0 0RF Protocol: *Topical Application Instructions APPLICATION INSTRUCTIONS: abdominal folds oxycodone 5 mg Tablet 5 mg PO Q4H PRN PRN (Reason: Pain Score 4-10) Qty: 0 0RF Continued vitamin B complex 1 EACH tablet 1 ea PO DAILY folic acid 1 MG tablet 1 mg PO DAILY cholecalciferol (vitamin D3) 5,000 UNIT capsule 5,000 unit PO DAILY magnesium 250 mg tablet 400 mg PO DAILY acetaminophen 500 MG tablet 1,000 mg PO Q6H PRN PRN (Reason: Pain Score 1-10/10) 0RF cyanocobalamin (vitamin B-12) 1,000 mcg tablet extended release 1,000 mcg PO DAILY tramadol 50 mg tablet 50 mg PO BID PRN PRN (Reason: pain) turmeric 400 mg capsule 400 mg PO DAILY amlodipine 2.5 mg tablet 2.5 mg PO BID Qty: 180 3RF Discontinued metoprolol succinate 50 MG tablet 50 mg PO BID Qty: 60 0RF Referrals / Follow Up: Michael Snowden Chi, MD [Primary Care Provider] - Disposition Disposition (needs filled in before D/C Order can be placed): Long-Term Facility Charges/Coding Visit Charges Inpatient E&M: 48387 Disch Hosp >30min
--- NOTE | 2024-04-16 13:31 | CASEMGMT ---
Social Work Precert has been obtained.? Physician updated and pt is ready for discharge today. SW met with pt and they are agreeable to discharge plan as stated above.? Bedside nurse notified of discharge. Disposition:TCU, skilled level of care under convalescent stay. CORTEZ Servin
[2024-04-16] MEDS: Nystatin Powder 15gm Bottle 1 APPLIC TOPICAL (14:09)
--- NOTE | 2024-04-16 14:17 | NURSING ---
Report called to Sybil RN, pt will go to [facility]. Sybil said to leave the SL in.
== END 2024-04-16 15:30 | disposition skilled nursing facility (03) | DRG 543 ==
LOC: ED 12:54 → MS3 14:48
PROVIDERS: Anesthesiology; Physician Assistant; Admitting Provider Internal Medicine; Emergency Provider Emergency Medicine; PCP Family Medicine Geriatric Medicine; Visit Provider Family Medicine
PROC: 3E0S3BZ Introduction of Anesthetic Agent into Epidural Space, Percutaneous Approach (ICD-10-PCS; CPT 62322; principal; 2024-04-14 11:25)
DX: M80.08XA Age-related osteoporosis with current pathological fracture, vertebra(e), initial encounter for fracture (principal); G95.0 Syringomyelia and syringobulbia; S32.029A Unspecified fracture of second lumbar vertebra, initial encounter for closed fracture; I10 Essential (primary) hypertension; D86.9 Sarcoidosis, unspecified; M48.07 Spinal stenosis, lumbosacral region; M54.17 Radiculopathy, lumbosacral region; W19.XXXA Unspecified fall, initial encounter; M21.371 Foot drop, right foot; N95.0 Postmenopausal bleeding; R32 Unspecified urinary incontinence; G89.29 Other chronic pain; Z79.83 Long term (current) use of bisphosphonates; Z79.899 Other long term (current) drug therapy
CPT/HCPCS: 36415; 72100; 72148; 76000; 76830; 80048; 83735; 84443; 85025; 85027; 85610; 93005; 97110; 97116; 97162; 97166; 97530; 97535; 99285; A4216; J2405

== ENCOUNTER 2024-04-16 15:42 | Inpatient (IN) | payer MEDICARE, SELFPAY ==
[2024-04-16 15:47] VITALS: BP 142/83; PULSE 71; RESP 16; TEMP 36.7; O2SAT 94; BMI 31.6
[2024-04-16 16:10] VITALS: BMI 31.6
--- NOTE | 2024-04-16 16:23 | HP.PCM_ITS ---
HPI - General General Date of Admission: 04/16/24 Date of Service: 04/16/24 Chief Complaint: Here for rehabilitation. HPI Narrative JUAWN DAVIES, is a 78 Female who presents with followin04/11/2024 [facility] ED back pain. Worsening right sided low back pain, radiating to right thigh. X-ray 03/23/2024 showed worsening L1 compression fracture. Took [place], and Tramadol without relief. Walks with walker at baseline, walking with difficulty, unable to get out of bed. Sister unable to care for her. 09/30/2023 MRI L spine showed severe lumbar spinal stenosis. Dr. Brooks did not think she was a surgical candidate due to her low bone density. Recommend [facility]. Unable to walk, admit to hospital. 04/11/2024 Admit [facility]. Tylenol, Lidoderm, pain management for intractable low back pain/worsening L1 compression fracture. Pelvic ultrasound for post menopausal bleeding. 04/12/2024 Pain persists. PT/OT for discharge planning. 04/13/2024 No acute events overniht, pain little better. MRI lumbar spine pending. Pelvic ultrasound showed heterogenuous thickening, recommend outpatient OUTPATIENT CLERK follow up. 04/14/2024 MRI lumbar spine showed severe L5-S1 foraminal stenosis with L1 compression fracture. 04/14/2024 Dr. Acosta performed L1-L2 lumbar epidural steroid injection. 04/15/2024 No acute events overnight, epidural steroid injection instead of kyphoplasty because patient unable to lay on abdomen. PT/OT SNF. 04/16/2024 No acute events overnight, await Pre-CERT for SNF. 04/16/2024 Admit to TCU with debility, here for rehabilitation, strengthening, prior to discharge home with sister/caregiver. [facility] Medical History Dyskinesia of esophagus COVID-19 virus infection (04/10/21) History of non-ST elevation myocardial infarction (NSTEMI) (02/16/15) Encephalopathy Syncope and collapse Nonrheumatic aortic (valve) stenosis Essential (primary) hypertension GERARDO (obstructive sleep apnea) Osteoarthritis Myelopathy Spinal cord lesion Upper GI bleed Obesity (BMI 30-39.9) Home Medications ?Medication ?Instructions ?Recorded ?Last Taken ?Type cholecalciferol (vitamin D3) 125 5,000 unit PO DAILY Supplement 04/03/19 04/10/24 History mcg (5,000 unit) capsule folic acid 1 mg tablet 1 mg PO DAILY Supplement 04/03/19 04/10/24 History vitamin B complex 1 ea PO DAILY Supplement 04/03/19 04/10/24 History acetaminophen 500 mg tablet 1,000 mg (2 x 500 mg) PO Q6H PRN 04/26/19 04/11/24 Rx PRN Pain Score 1-01/07 magnesium 250 mg tablet 400 mg PO DAILY Supplement 01/06/23 04/10/24 History amlodipine 2.5 mg tablet 2.5 mg PO BID blood pressure #180 03/29/24 04/10/24 Rx tabs cyanocobalamin (vitamin B-12) 1,000 mcg PO DAILY supplement 04/11/24 04/10/24 History 1,000 mcg tablet,extended release tramadol 50 mg tablet 50 mg PO BID PRN PRN pain 04/11/24 04/10/24 History turmeric 400 mg capsule 400 mg PO DAILY supplement 04/11/24 04/10/24 History baclofen 10 mg tablet 5 mg (1/2 x 10 mg) PO TID PRN PRN 04/16/24 Unknown Rx MUSCLE PAIN/SPASM #0 tabs lidocaine 5 % topical patch 1 patch topical DAILY pain 04/16/24 Unknown History metoprolol succinate 25 mg 12.5 mg (1/2 x 25 mg) PO BID heart 04/16/24 Unknown Rx tablet,extended release 24 hr health #0 tabs nystatin 100,000 unit/gram topical 1 applic topical BID abdominal 04/16/24 Unknown Rx powder ([facility]) folds #0 grams oxycodone 5 mg tablet 5 mg PO Q4H PRN PRN Pain Score 04/16/24 Unknown Rx 4-10 #0 tabs sennosides 8.6 mg-docusate sodium 2 tab PO BID constipation #0 tabs 04/16/24 Unknown Rx 50 mg tablet (Stimulant Laxative Plus) Allergy/AdvReac Type Severity Reaction Status Date / Time hydrochlorothiazide Allergy Intermediate low sodium Verified 04/14/24 10:42 atorvastatin (From Lipitor) Allergy Unknown Verified 04/14/24 10:42 doxazosin (From Cardura) Allergy Other Verified 04/14/24 10:42 lisinopril Allergy Angioedema Verified 04/14/24 10:42 amlodipine (From Norvasc) AdvReac Severe Freezes up Verified 04/14/24 10:42 limbs nifedipine (From Nifedical AdvReac Severe Freezes up Verified 04/14/24 10:42 XL) limbs alendronate sodium (From AdvReac Intermediate GI upset Verified 04/14/24 10:42 Fosamax) codeine AdvReac Unknown Verified 04/14/24 10:42 ibuprofen AdvReac Other Verified 04/14/24 10:42 Family History Father Hypertension Aortic aneurysm Mother Hypertension Sister Hypertension Diabetes Surgical History Status post surgical removal of malignant neoplasm of skin History of cataract extraction Hx of LASIK Status post right foot surgery History of bunionectomy of right great toe History of tonsillectomy History of tonsillectomy History of total right knee replacement History of total left knee replacement History of arthroplasty of right knee Social History (Updated 04/16/24 @ 16:[address] Michael Snowden MD) household members: caregiver and other details: Sister. housing: [facility] pets and animals: No Smoking Status: Never smoker alcohol intake: never substance use type: does not use caffeine: No what type of physical activity do you participate in: none seatbelt use: always do you feel safe at home: Yes ROS Constitutional Constitutional: Reports weakness; Denies chills, fever(s) or weight gain ENT HEENT: Denies headache(s), nasal congestion or nasal discharge Cardiovascular Cardiovascular: Denies chest pain or palpitations Respiratory/Chest Respiratory/Chest: Denies cough, excessive phlegm production or shortness of breath with exertion Gastrointestinal Gastrointestinal: Denies abdominal pain, nausea or vomiting Genitourinary Genitourinary: Denies dysuria Musculoskeletal Musculoskeletal: Reports back pain; Denies joint pain or joint swelling Integumentary Integumentary: Denies rash or wounds Neurologic Neurologic: Denies focal weakness, numbness or tingling Psychiatric Psychiatric: Denies anxiety, auditory hallucinations, depression, homicidal ideation or suicidal ideation Vital Signs Vital Signs Vital Signs: 04/16/24 15:47 Temperature 98.0 F Temperature Source Temporal Pulse Rate 71 Respiratory Rate 16 Blood Pressure 142/83 H Blood Pressure Mean 102 Blood Pressure Source Monitor Blood Pressure Position Semi-Fowlers Blood Pressure Location Right Arm Pulse Ox 94 Oxygen Delivery Method Room Air Weight Weight: 68.663 kg Body Mass Index (BMI) 31.6 Physical Exam Const alert General Appearance: cooperative HEENT normocephalic Eyes PERRL and EOMs intact bilaterally Neck supple, no JVD and no carotid bruits Resp normal respiratory effort, normal air movement and clear to auscultation bilaterally Cardio regular rate and regular rhythm GI normal to inspection, nondistended, normoactive bowel sounds, non-tender and non-distended Extremity normal capillary refill General Extremity: Negative for edema Skin no rashes or lesions noted General Skin Exam: no breakdown Psych affect normal Appearance: appropriate Assessment & Plan Assessment/Plan (1) Debility: (2) Intractable low back pain: (3) Radiculopathy of lumbar region: (4) Compression fracture of L1 vertebra: (5) Postmenopausal bleeding: (6) Essential (primary) hypertension: (7) Sarcoidosis: (8) Neuropathic pain, leg, bilateral: (9) Vitamin D deficiency: (10) Hypomagnesemia: PLAN: Plan 78 year old female with below past medical history hospitalized for intractable low back pain 2/2 L1 compression fracture, complicated by lumbar spinal stenosis, postmenopausal bleeding, admitted to TCU with debility, here for rehabilitation, strengthening, prior to discharge home with sister/caregiver. * Debility - PT/OT. * Pain - Tylenol 1000mg q8, Tramadol 50mg q6 prn pain (1-5), Oxycodone 5mg q4 prn pain (6-10), Lidoderm 1 patch td daily. * Bowel - senna/colace 2 tablets bid, Magnesium citrate 300mL po daily prn. * Adult immunization - Administer pneumonia vaccine, covid vaccine, flu vaccine as appropriate. * DVT prophylaxis - Lovenox 40mg sc daily. * Hypertension - Metoprolol succinate 12.5mg bid, Amlodipine 2.5mg bid. * Muscle spasm - Baclofen 5mg tid. * Vitamin D deficiency - D3 25mcg daily. * Vitamin B12 deficiency - B12 1000mcg daily. * Folate deficiency - Folic acid 1mg daily. * Hypomagnesemia - Magnesium chloride 128mg daily. * Tinea Corporis - Nystatin powder topical bid. * Leg cramps - Vitamin B complex 1 capsule daily. * Postmenopausal bleeding - pelvic ultrasound showed heterogeneous thickening, follow up OUTPATIENT CLERK outpatient.
[2024-04-16] MEDS: Acetaminophen 500 MG Tablet 1000 MG PO (22:15)
[2024-04-16] MEDS: Senna/Docusate Sodium 1 Tablet 2 TABLET PO (22:16)
[2024-04-16] MEDS: Baclofen 10 MG Tablet 5 MG PO (22:17)
[2024-04-16 22:18] VITALS: BP 141/89; PULSE 70
[2024-04-16] MEDS: Metoprolol(XL)Succ 25 MG Tablet 12.5 MG PO (22:18)
[2024-04-16] MEDS: amLODIPine 2.5 MG Tablet PO (22:18)
[2024-04-16] MEDS: oxyCODONE 5 MG Tablet PO (22:30)
[2024-04-16] MEDS: Nystatin Powder 15gm Bottle 1 APPLIC TOPICAL (22:39)
[2024-04-17 05:22] LABS: Absolute Lymphocyte Count 1.39 X10^3/uL (0.83-4.51); Absolute Neutrophil Count 5.3 X10^3/uL (2.0-7.7); Basophil# 0.02 X10^3/uL; Basophil% 0.3 % (0-1); Eosinophil# 0.02 X10^3/uL; Eosinophils% 0.3 % (0-5); Hematocrit 35.2 % (37-47); Hemoglobin 11.4 g/dL (12.0-15.0); Lymphocyte # 1.39 X10^3/ul (0.83-4.51); Lymphocyte % 18.8 % (19-41); Mean Corp Hgb Conc 32.4 g/dL (32-36); Mean Corpuscular Hgb 31.7 pg (27.0-32.0); Mean Corpuscular Volume 97.8 fL (81-99); Monocyte# 0.61 X10^3/uL; Monocyte% 8.3 % (0-10); NRBC Flagged by Analyzer 0 % (0-5); Neutrophil # 5.33 X10^3/uL (2.7-7.7); Platelet Count 261 K/mm3 (150-450); RBC Distribution Width SD 46.8 fl (35.1-43.9); White Blood Count 7.4 K/mm3 (4.4-11.0)
[2024-04-17] MEDS: Baclofen 10 MG Tablet 5 MG PO ×3 (05:31→22:36)
[2024-04-17] MEDS: Acetaminophen 500 MG Tablet 1000 MG PO ×3 (05:31→22:37)
[2024-04-17] MEDS: Enoxaparin 40 MG/0.4 ML Syringe SC (05:37)
[2024-04-17 05:52] LABS: Anion Gap 6 (5-15); BUN 26 mg/dL (7-18); BUN/Creat Ratio 36.8 RATIO (10-20); Calcium,Total 8.9 mg/dL (8.5-10.1); Chloride 106 mmol/L (98-107); Creatinine, Serum 0.71 mg/dL (0.55-1.02); EST Glomerular Filtration Rate 85 mL/min (>60); Est Glom Filt Rate - Afr Amer 103 mL/min (>60); Estimated Creatinine Clearance 50.11 ml/min; Glucose 108 mg/dL (74-106); Potassium 4.2 mmol/L (3.5-5.1); Sodium Level 135 mmol/L (136-145)
[2024-04-17 10:00] VITALS: PULSE 72; RESP 16; O2SAT 94
[2024-04-17] MEDS: oxyCODONE 5 MG Tablet PO ×3 (11:10→22:47)
[2024-04-17] MEDS: Lidocaine 5% Patch 1 PATCH TOPICAL (11:10)
[2024-04-17] MEDS: Magnesium Chloride 64 MG Delay Rel.Tablet 128 MG PO (11:10)
[2024-04-17] MEDS: Senna/Docusate Sodium 1 Tablet 2 TABLET PO ×2 (11:10→22:37)
[2024-04-17 11:11] VITALS: PULSE 72
[2024-04-17] MEDS: amLODIPine 2.5 MG Tablet PO ×2 (11:11→22:37)
[2024-04-17] MEDS: Metoprolol(XL)Succ 25 MG Tablet 12.5 MG PO ×2 (11:11→22:38)
[2024-04-17] MEDS: Folic Acid 1 MG Tablet PO (11:11)
[2024-04-17] MEDS: Vitamin B Comp W-C Capsule 1 CAP PO (11:11)
[2024-04-17] MEDS: Cyanocobalamin 500 MCG Tablet 1000 MCG PO (11:12)
[2024-04-17] MEDS: Tuberculin,Purif.prot.deriv. 50 TU/ML Vial 0.1 ML ID (11:13)
[2024-04-17] MEDS: 0.9% Saline Lock 10 ML Syringe IV (11:13)
[2024-04-17] MEDS: Nystatin Powder 15gm Bottle 1 APPLIC TOPICAL ×2 (11:17→22:37)
[2024-04-17] MEDS: Cholecalciferol (VIT D3) 25 MCG TABLET (1,000 UNITS) PO (12:18)
--- NOTE | 2024-04-17 13:36 | PHA.CONS_ITS ---
Documented by User: Nica Oneil 04/17/24 13:55 TCU RX Drug Regimen Review Subjective/Objective Subjective/Objective Subjective: TCU Admission. 78 YOF presented to the ER with back pain. Hospitalized for intractable low back pain 2/2 L1 compression fracture, complicated by lumbar spinal stenosis, postmenopausal bleeding. Admitted to TCU with debility for strengthening and rehabilitation. Objective: Allergies hydrochlorothiazide Allergy (Intermediate, Verified 04/14/24 10:42) low sodium atorvastatin (From Lipitor) Allergy (Verified 04/14/24 10:42) Unknown doxazosin (From Cardura) Allergy (Verified 04/14/24 10:42) Other VASOVAGAL lisinopril Allergy (Verified 04/14/24 10:42) Angioedema amlodipine (From Norvasc) Adverse Reaction (Severe, Verified 04/14/24 10:42) Freezes up limbs nifedipine (From Nifedical XL) Adverse Reaction (Severe, Verified 04/14/24 10:42) Freezes up limbs alendronate sodium (From Fosamax) Adverse Reaction (Intermediate, Verified 04/14/24 10:42) GI upset codeine Adverse Reaction (Verified 04/14/24 10:42) Unknown ibuprofen Adverse Reaction (Verified 04/14/24 10:42) Other Current Medications Generic Name Dose Route Start Last Admin Trade Name Jose Armandoq PRN Reason Stop Dose Admin Acetaminophen 1,000 mg 04/16/24 22:00 04/17/24 05:31 Acetaminophen 500 Mg Tablet PO 1,000 mg Q8 LILLIAN Administration Amlodipine Besylate 2.5 mg 04/16/24 22:00 04/17/24 11:11 Amlodipine 2.5 Mg Tablet PO 2.5 mg BID LILLIAN Administration Protocol Baclofen 5 mg 04/16/24 22:00 04/17/24 05:31 Baclofen 10 Mg Tablet PO 5 mg TID LILLIAN Administration Cholecalciferol 25 mcg 04/17/24 10:00 04/17/24 12:18 Cholecalciferol (Vit D3) 25 Mcg Tablet (1,000 Units) PO 25 mcg DAILY LILLIAN Administration Cyanocobalamin 1,000 mcg 04/17/24 10:00 04/17/24 11:12 Cyanocobalamin 500 Mcg Tablet PO 1,000 mcg DAILY LILLIAN Administration Enoxaparin Sodium 40 mg 04/17/24 06:00 04/17/24 05:37 Enoxaparin 40 Mg/0.4 Ml Syringe SC 40 mg DAILY@0600 LILLIAN Administration Folic Acid 1 mg 04/17/24 10:00 04/17/24 11:11 Folic Acid 1 Mg Tablet PO 1 mg DAILY LILLIAN Administration Lidocaine 1 patch 04/17/24 10:00 04/17/24 11:10 Lidocaine 5% Patch TOPICAL 1 patch DAILY [facility] Administration Protocol Magnesium Chloride 128 mg 04/17/24 10:00 04/17/24 11:10 Magnesium Chloride 64 Mg Delay Rel.Tablet PO 128 mg DAILY LILLIAN Administration Magnesium Citrate 300 ml 04/16/24 16:38 Magnesium Citrate 300 Ml PO DAILY PRN Constipation Metoprolol Succinate 12.5 mg 04/16/24 22:00 04/17/24 11:11 Metoprolol(Xl)Succ 25 Mg Tablet PO 12.5 mg BID [facility] Administration Protocol Multivitamins 1 cap 04/17/24 10:00 04/17/24 11:11 Vitamin B Comp W-C Capsule PO 1 cap DAILY [facility] Administration Nystatin 1 applic 04/16/24 22:00 04/17/24 11:17 Nystatin Powder 15gm Bottle TOPICAL 1 applic BID [facility] Administration Protocol Oxycodone HCl 5 mg 04/16/24 16:40 04/17/24 11:10 Oxycodone 5 Mg Tablet PO 5 mg Q4H PRN PRN Administration Pain Score 6-10 or Pre PT/OT Senna/Docusate Sodium 2 tablet 04/16/24 22:00 04/17/24 11:10 Senna/Docusate Sodium 1 Tablet PO 2 tablet BID LILLIAN Administration Sodium Chloride 10 - 40 ml 04/16/24 15:59 04/17/24 11:13 0.9% Saline Lock 10 Ml Syringe IV 10 ml UD PRN Administration SALINE FLUSH Tramadol HCl 50 mg 04/16/24 16:40 Tramadol 50 Mg Tablet PO Q6H PRN PRN Pain Score 1-5 or Pre PT/OT Tuberculin PPD 0.1 ml 04/24/24 10:00 Tuberculin,Purif.Prot.Deriv. 50 Tu/Ml Vial ID 04/24/24 10:01 X1 ONE Problem List Hypomagnesemia (Acute) Vitamin D deficiency (Acute) Neuropathic pain, leg, bilateral (Acute) Essential (primary) hypertension (Acute) Postmenopausal bleeding (Acute) Intractable low back pain (Acute) Debility (Acute) Radiculopathy of lumbar region (Acute) Compression fracture of L1 vertebra (Acute) Sarcoidosis (Chronic) Vital Signs Temp Pulse Resp BP Pulse Ox O2 Del Method 98.0 F 72 16 141/89 H 94 Room Air 04/16/24 15:47 04/17/24 11:11 04/16/24 15:47 04/16/24 22:18 04/16/24 15:47 04/16/24 15:47 Oxygen Delivery Method Room Air Weight: 68.663 kg Body Mass Index (BMI) 31.6 Sodium 135 mmol/L (136-145) L 04/17/24 04:23 Potassium 4.2 mmol/L (3.5-5.1) 04/17/24 04:23 Chloride 106 mmol/L (98-107) 04/17/24 04:23 Carbon Dioxide 23.0 mmol/L (21.0-32.0) 04/17/24 04:23 Anion Gap 6 (5-15) 04/17/24 04:23 BUN 26 mg/dL (7-18) H 04/17/24 04:23 Creatinine 0.71 mg/dL (0.55-1.02) 04/17/24 04:23 Est GFR (MDRD) Af Amer 103 mL/min (>60) 04/17/24 04:23 Est GFR (MDRD) Non-Af 85 mL/min (>60) 04/17/24 04:23 BUN/Creatinine Ratio 36.8 RATIO (10-20) H 04/17/24 04:23 Glucose 108 mg/dL (74-106) H 04/17/24 04:23 Assessment/Plan: 1. Pain: acetaminophen 1000mg PO Q8, lidocaine 5% patch 1 patch topical daily, tramadol 50mg PO Q6H PRN pain 1-5 and oxycodone 5mg PO Q4H PRN pain 6-10. Resident has not had any tramadol but has had 2 doses of oxycodone for pain scores of 10 in the back/hip. Please continue to monitor for increased pain, PRN usage, constipation, respiratory depression, renal function, rash and falls (Jed). 2. Bowel: senna/docusate 2T PO BID and magnesium citrate 300mL PO daily PRN constipation. No PRN doses. Please continue to monitor for constipation and PRN usage. Last documented bowel movement was 04/15. 3. DVT prophylaxis: enoxaparin 40mg SC daily. Please continue to monitor for S/S of bleeding/DVT, hemoglobin (last 11.4g/dL), platelets (last 261,000) and renal function. 4. Hypertension: metoprolol succinate 12.5mg PO BID and amlodipine 2.5mg PO BID. Please continue to monitor BP (last 141/89), HR (last 72) and swelling. 5. Muscle spasm: baclofen 5mg PO TID. Please continue to monitor for muscle spasms, hypotonia, drowsiness. 6. Vitamin D and B12 deficiencies/leg cramps: cholecalciferol 25mcg PO daily, cyanocobalamin 1000mcg PO daily, vitamin B complex 1C PO daily. Please continue to monitor vitamin D (last 12/15/23), vitamin B12 (last 09/09/23). 7. Folate deficiency: folic acid 1mg PO daily. Please continue to monitor. 8. Hypomagnesemia: magnesium chloride 128mg PO daily. Please continue to monitor magnesium (last 2.3mg/dL). 9. Tinea Corporis: nystatin powder topical bid. Please continue to monitor. Assessment/Plan for indications treated with psychotropic medications: None Medical chart and medication regimen reviewed. The following medication irregularities or issues were identified: None Date Date of Note: 04/17/24 Documented by User: Dr. Michael Snowden MD 04/18/24 09:50 TCU RX Drug Regimen Review Provider Comments Provider responsibility Provider Comments to Recommendations by Pharmacy Agree
[2024-04-17 15:41] VITALS: BP 137/75; PULSE 64; RESP 15; TEMP 36.8; O2SAT 94
[2024-04-17] MEDS: Magnesium Citrate 300 ML PO (16:29)
[2024-04-17 22:38] VITALS: BP 140/81; PULSE 72
[2024-04-18] MEDS: oxyCODONE 5 MG Tablet PO ×4 (05:20→22:22)
[2024-04-18] MEDS: Enoxaparin 40 MG/0.4 ML Syringe SC (05:21)
[2024-04-18] MEDS: Baclofen 10 MG Tablet 5 MG PO ×3 (05:21→22:30)
[2024-04-18] MEDS: Acetaminophen 500 MG Tablet 1000 MG PO ×3 (05:21→22:24)
[2024-04-18 09:45] VITALS: BP 133/47; PULSE 69; RESP 16; TEMP 37; O2SAT 96
[2024-04-18] MEDS: Vitamin B Comp W-C Capsule 1 CAP PO (09:50)
[2024-04-18] MEDS: Folic Acid 1 MG Tablet PO (09:50)
[2024-04-18] MEDS: Nystatin Powder 15gm Bottle 1 APPLIC TOPICAL ×2 (09:51→22:25)
[2024-04-18] MEDS: amLODIPine 2.5 MG Tablet PO ×2 (09:51→22:24)
[2024-04-18] MEDS: Lidocaine 5% Patch 1 PATCH TOPICAL (09:51)
[2024-04-18] MEDS: Magnesium Chloride 64 MG Delay Rel.Tablet 128 MG PO (09:51)
[2024-04-18 09:52] VITALS: PULSE 69
[2024-04-18] MEDS: Metoprolol(XL)Succ 25 MG Tablet 12.5 MG PO ×2 (09:52→22:24)
[2024-04-18] MEDS: Cyanocobalamin 500 MCG Tablet 1000 MCG PO (09:53)
[2024-04-18] MEDS: Cholecalciferol (VIT D3) 25 MCG TABLET (1,000 UNITS) PO (09:53)
[2024-04-18] MEDS: Menthol/Lanolin/Calamine/Znox 113 GM Tube 1 APPLIC TOPICAL ×2 (09:57→22:23)
--- NOTE | 2024-04-18 10:57 | NURSING ---
Patient c/o indigestion this shift, burning to her belly, pointing to her esophageus. Patient also having diarrhea. Patient received dose of Magnesium Citrate yesterday. RN offered crackers, dimas darwin. Patient declines. Vital signs obtained and WNL. Patient denies any chest pain or shortness of breath. Patient c/o pain and spasms to her back. PRN Oxy given per patient request. Will continue to monitor. Call light within reach.
[2024-04-18] MEDS: Senna/Docusate Sodium 1 Tablet 2 TABLET PO (22:23)
[2024-04-18 22:24] VITALS: BP 134/75; PULSE 63
[2024-04-19] MEDS: Baclofen 10 MG Tablet 5 MG PO ×3 (05:51→20:35)
[2024-04-19] MEDS: Acetaminophen 500 MG Tablet 1000 MG PO ×3 (05:52→20:37)
[2024-04-19] MEDS: Enoxaparin 40 MG/0.4 ML Syringe SC (05:52)
[2024-04-19] MEDS: oxyCODONE 5 MG Tablet PO ×3 (05:56→23:19)
[2024-04-19 08:02] VITALS: BP 151/84; PULSE 67; RESP 16; TEMP 36.6; O2SAT 94
[2024-04-19] MEDS: amLODIPine 2.5 MG Tablet PO ×2 (08:05→20:36)
[2024-04-19] MEDS: Magnesium Chloride 64 MG Delay Rel.Tablet 128 MG PO (08:05)
[2024-04-19 08:06] VITALS: PULSE 67
[2024-04-19] MEDS: Metoprolol(XL)Succ 25 MG Tablet 12.5 MG PO ×2 (08:06→20:36)
[2024-04-19] MEDS: Senna/Docusate Sodium 1 Tablet 2 TABLET PO (08:06)
[2024-04-19] MEDS: Cholecalciferol (VIT D3) 25 MCG TABLET (1,000 UNITS) PO (08:06)
[2024-04-19] MEDS: Cyanocobalamin 500 MCG Tablet 1000 MCG PO (08:06)
[2024-04-19] MEDS: Vitamin B Comp W-C Capsule 1 CAP PO (08:06)
[2024-04-19] MEDS: Menthol/Lanolin/Calamine/Znox 113 GM Tube 1 APPLIC TOPICAL ×2 (08:07→20:45)
[2024-04-19] MEDS: Lidocaine 5% Patch 1 PATCH TOPICAL (08:07)
[2024-04-19] MEDS: Folic Acid 1 MG Tablet PO (08:07)
[2024-04-19] MEDS: Nystatin Powder 15gm Bottle 1 APPLIC TOPICAL ×2 (08:08→20:44)
--- NOTE | 2024-04-19 14:42 | NURSING ---
Driver'S Education Instructor Note; Activity Asset: Ray Bauer prefers to be called Chaparrita. Chaparrita is independent in her choice of daily activities. She has her phone, reads and watches tv. She lives w/her sister and she will bring in any items she may need or want. She prefers to do in room activities at this time. Staff will remind her of weekly activities, encourage social activities and respect her right to say no.
[2024-04-19] MEDS: 0.9% Saline Lock 10 ML Syringe IV (15:28)
--- NOTE | 2024-04-19 16:41 | CASEMGMT ---
Social Work SW met with patient to complete initial assessment. Pt known to this worker from previous stay. Verified contacts. Pt requesting to complete advanced directives. SW discussed wishes and will assist in completing prior to DC, as time allows. Pt confirmed code status as full code. Educated to [facility] insurance with NRD 04/20 and continued stay is not guaranteed with each review. Pt's goal is to return home with sister. SW will continue to follow for DC planning. CARMEN MylesW
[2024-04-19 20:27] VITALS: PULSE 62; RESP 16
[2024-04-19 20:36] VITALS: BP 108/63; PULSE 62
[2024-04-20] MEDS: Enoxaparin 40 MG/0.4 ML Syringe SC (06:09)
[2024-04-20] MEDS: Acetaminophen 500 MG Tablet 1000 MG PO ×3 (06:09→21:17)
[2024-04-20] MEDS: Baclofen 10 MG Tablet 5 MG PO ×3 (06:09→21:18)
[2024-04-20 06:36] VITALS: PULSE 59; RESP 16; O2SAT 97
[2024-04-20 09:23] VITALS: BP 110/68; PULSE 64; RESP 16; TEMP 36.7; O2SAT 100
[2024-04-20] MEDS: amLODIPine 2.5 MG Tablet PO ×2 (09:25→21:18)
[2024-04-20] MEDS: Vitamin B Comp W-C Capsule 1 CAP PO (09:25)
[2024-04-20] MEDS: Folic Acid 1 MG Tablet PO (09:25)
[2024-04-20] MEDS: Cyanocobalamin 500 MCG Tablet 1000 MCG PO (09:25)
[2024-04-20] MEDS: Lidocaine 5% Patch 1 PATCH TOPICAL (09:25)
[2024-04-20] MEDS: Magnesium Chloride 64 MG Delay Rel.Tablet 128 MG PO (09:25)
[2024-04-20 09:26] VITALS: PULSE 64
[2024-04-20] MEDS: Metoprolol(XL)Succ 25 MG Tablet 12.5 MG PO ×2 (09:26→21:17)
[2024-04-20] MEDS: Cholecalciferol (VIT D3) 25 MCG TABLET (1,000 UNITS) PO (09:26)
[2024-04-20] MEDS: Menthol/Lanolin/Calamine/Znox 113 GM Tube 1 APPLIC TOPICAL ×2 (09:28→21:19)
[2024-04-20] MEDS: Nystatin Powder 15gm Bottle 1 APPLIC TOPICAL ×2 (09:29→21:18)
--- NOTE | 2024-04-20 10:49 | NURSING ---
Offered covid vaccine, VIS provided. Resident refuses at this time.
[2024-04-20 11:30] VITALS: BMI 32.1
[2024-04-20] MEDS: oxyCODONE 5 MG Tablet PO ×2 (13:44→21:17)
[2024-04-20] MEDS: 0.9% Saline Lock 10 ML Syringe IV ×2 (15:03→21:24)
--- NOTE | 2024-04-20 16:10 | CASEMGMT ---
Social Work SW completed advanced directives with pt. Original and copies provided to pt. Copies placed on chart. Eryn Kennedy, GRAVEL INSPECTOR SPLICING TECHNICIAN
[2024-04-20 21:17] VITALS: BP 110/85; PULSE 77
[2024-04-21] MEDS: Baclofen 10 MG Tablet 5 MG PO ×3 (05:25→21:34)
[2024-04-21] MEDS: oxyCODONE 5 MG Tablet PO ×4 (05:25→21:39)
[2024-04-21] MEDS: Acetaminophen 500 MG Tablet 1000 MG PO ×3 (05:25→21:36)
[2024-04-21] MEDS: Enoxaparin 40 MG/0.4 ML Syringe SC (05:25)
[2024-04-21 08:53] VITALS: BP 98/68; PULSE 87; RESP 16; TEMP 36.2
[2024-04-21] MEDS: Vitamin B Comp W-C Capsule 1 CAP PO (08:58)
[2024-04-21] MEDS: Magnesium Chloride 64 MG Delay Rel.Tablet 128 MG PO (08:59)
[2024-04-21] MEDS: Nystatin Powder 15gm Bottle 1 APPLIC TOPICAL ×2 (08:59→21:35)
[2024-04-21] MEDS: Folic Acid 1 MG Tablet PO (08:59)
[2024-04-21] MEDS: Lidocaine 5% Patch 1 PATCH TOPICAL (08:59)
[2024-04-21] MEDS: Menthol/Lanolin/Calamine/Znox 113 GM Tube 1 APPLIC TOPICAL ×2 (08:59→21:34)
[2024-04-21 09:00] VITALS: PULSE 87
[2024-04-21] MEDS: amLODIPine 2.5 MG Tablet PO ×2 (09:00→21:35)
[2024-04-21] MEDS: Metoprolol(XL)Succ 25 MG Tablet 12.5 MG PO ×2 (09:00→21:35)
[2024-04-21] MEDS: Cholecalciferol (VIT D3) 25 MCG TABLET (1,000 UNITS) PO (09:01)
[2024-04-21] MEDS: Cyanocobalamin 500 MCG Tablet 1000 MCG PO (09:01)
--- NOTE | 2024-04-21 09:52 | CASEMGMT ---
Social Work IDT met with patient and sister Sola, for care plan meeting. Discussed patient's progress in PT/OT/SN. Educated to [facility] insurance with NRD 04/20 and continued stay is not guaranteed with each review. Pt's goal is to return home with sister, but must return to baseline, as sister cannot provide more assistance. SW provided written communication on insurance process and copay coverage during stay. SW will continue to follow for DC planning. Eryn Kennedy COIN DEALER BENCHROOM SHOP OPTICIAN
[2024-04-21] MEDS: 0.9% Saline Lock 10 ML Syringe IV ×2 (14:06→21:37)
[2024-04-21 21:35] VITALS: PULSE 68
[2024-04-22] MEDS: Acetaminophen 500 MG Tablet 1000 MG PO ×3 (05:14→20:30)
[2024-04-22] MEDS: Enoxaparin 40 MG/0.4 ML Syringe SC (05:14)
[2024-04-22] MEDS: Baclofen 10 MG Tablet 5 MG PO ×3 (05:14→20:31)
[2024-04-22] MEDS: oxyCODONE 5 MG Tablet PO ×2 (05:19→20:25)
[2024-04-22] MEDS: Cholecalciferol (VIT D3) 25 MCG TABLET (1,000 UNITS) PO (09:24)
[2024-04-22] MEDS: Magnesium Chloride 64 MG Delay Rel.Tablet 128 MG PO (09:24)
[2024-04-22 09:25] VITALS: BP 110/63; PULSE 65; RESP 16; TEMP 36.1; O2SAT 100
[2024-04-22] MEDS: amLODIPine 2.5 MG Tablet PO ×2 (09:25→20:32)
[2024-04-22] MEDS: Metoprolol(XL)Succ 25 MG Tablet 12.5 MG PO ×2 (09:25→20:29)
[2024-04-22] MEDS: Lidocaine 5% Patch 1 PATCH TOPICAL (09:25)
[2024-04-22] MEDS: Folic Acid 1 MG Tablet PO (09:25)
[2024-04-22] MEDS: Menthol/Lanolin/Calamine/Znox 113 GM Tube 1 APPLIC TOPICAL ×2 (09:25→20:33)
[2024-04-22] MEDS: Cyanocobalamin 500 MCG Tablet 1000 MCG PO (09:25)
[2024-04-22] MEDS: Vitamin B Comp W-C Capsule 1 CAP PO (09:25)
[2024-04-22] MEDS: Nystatin Powder 15gm Bottle 1 APPLIC TOPICAL ×2 (09:26→20:32)
[2024-04-22] MEDS: 0.9% Saline Lock 10 ML Syringe IV (20:28)
[2024-04-22 20:29] VITALS: BP 118/82; PULSE 85
[2024-04-22 20:52] VITALS: PULSE 85; RESP 16
[2024-04-23] MEDS: Baclofen 10 MG Tablet 5 MG PO ×3 (05:23→21:31)
[2024-04-23] MEDS: Enoxaparin 40 MG/0.4 ML Syringe SC (05:24)
[2024-04-23] MEDS: Acetaminophen 500 MG Tablet 1000 MG PO ×3 (05:24→21:31)
[2024-04-23 05:57] LABS: Absolute Lymphocyte Count 1.47 X10^3/uL (0.83-4.51); Absolute Neutrophil Count 4.2 X10^3/uL (2.0-7.7); Basophil# 0.04 X10^3/uL; Basophil% 0.6 % (0-1); Eosinophil# 0.14 X10^3/uL; Eosinophils% 2.1 % (0-5); Hematocrit 34.8 % (37-47); Hemoglobin 11.5 g/dL (12.0-15.0); Lymphocyte # 1.47 X10^3/ul (0.83-4.51); Mean Corpuscular Hgb 32.5 pg (27.0-32.0); Mean Corpuscular Volume 98.3 fL (81-99); Monocyte# 0.69 X10^3/uL; Monocyte% 10.3 % (0-10); NRBC Flagged by Analyzer 0 % (0-5); Neutrophil # 4.17 X10^3/uL (2.7-7.7); Neutrophil % 62.6 % (47-70); Platelet Count 263 K/mm3 (150-450); RBC Distribution Width CV 13.2 % (11.6-14.6); RBC Distribution Width SD 47.7 fl (35.1-43.9); Red Blood Count 3.54 M/mm3 (4.2-5.4); White Blood Count 6.7 K/mm3 (4.4-11.0)
[2024-04-23 06:26] LABS: Anion Gap 6 (5-15); BUN 23 mg/dL (7-18); BUN/Creat Ratio 33.6 RATIO (10-20); Calcium,Total 8.8 mg/dL (8.5-10.1); Chloride 108 mmol/L (98-107); Creatinine, Serum 0.68 mg/dL (0.55-1.02); EST Glomerular Filtration Rate 88 mL/min (>60); Est Glom Filt Rate - Afr Amer 107 mL/min (>60); Estimated Creatinine Clearance 50.54 ml/min; Glucose 97 mg/dL (74-106); Potassium 4.6 mmol/L (3.5-5.1); Sodium Level 136 mmol/L (136-145)
[2024-04-23 08:07] VITALS: BP 151/93; PULSE 66; RESP 16; TEMP 36.8; O2SAT 94
[2024-04-23] MEDS: Vitamin B Comp W-C Capsule 1 CAP PO (08:09)
[2024-04-23] MEDS: Folic Acid 1 MG Tablet PO (08:09)
[2024-04-23 08:10] VITALS: PULSE 66
[2024-04-23] MEDS: Magnesium Chloride 64 MG Delay Rel.Tablet 128 MG PO (08:10)
[2024-04-23] MEDS: Cyanocobalamin 500 MCG Tablet 1000 MCG PO (08:10)
[2024-04-23] MEDS: Metoprolol(XL)Succ 25 MG Tablet 12.5 MG PO ×2 (08:10→21:31)
[2024-04-23] MEDS: Lidocaine 5% Patch 1 PATCH TOPICAL (08:10)
[2024-04-23] MEDS: amLODIPine 2.5 MG Tablet PO ×2 (08:10→21:31)
[2024-04-23] MEDS: Cholecalciferol (VIT D3) 25 MCG TABLET (1,000 UNITS) PO (08:11)
[2024-04-23] MEDS: Menthol/Lanolin/Calamine/Znox 113 GM Tube 1 APPLIC TOPICAL ×2 (08:12→21:32)
[2024-04-23] MEDS: Nystatin Powder 15gm Bottle 1 APPLIC TOPICAL ×2 (08:12→21:32)
--- NOTE | 2024-04-23 09:09 | NURSING ---
Honing Machine Set Up Operator Note; MDS for 04/23/2024 Complete
--- NOTE | 2024-04-23 14:08 | CASEMGMT ---
Social Work SW completed BIMS () and PHQ-2 () for MDS assessment. Eryn Kennedy POLE SANDER OPERATOR VAT TENDER
[2024-04-23 21:31] VITALS: BP 143/85; PULSE 63
[2024-04-23] MEDS: oxyCODONE 5 MG Tablet PO (21:31)
[2024-04-23 21:40] VITALS: BP 143/85; PULSE 63
[2024-04-24] MEDS: oxyCODONE 5 MG Tablet PO ×3 (06:29→22:59)
[2024-04-24] MEDS: Enoxaparin 40 MG/0.4 ML Syringe SC (06:29)
[2024-04-24] MEDS: Baclofen 10 MG Tablet 5 MG PO ×3 (06:29→22:55)
[2024-04-24] MEDS: Acetaminophen 500 MG Tablet 1000 MG PO ×3 (06:29→22:56)
[2024-04-24 09:46] VITALS: BP 106/72; PULSE 71; RESP 17; TEMP 36.3; O2SAT 94
[2024-04-24] MEDS: Vitamin B Comp W-C Capsule 1 CAP PO (09:48)
[2024-04-24] MEDS: Menthol/Lanolin/Calamine/Znox 113 GM Tube 1 APPLIC TOPICAL ×2 (09:48→23:01)
[2024-04-24] MEDS: Lidocaine 5% Patch 1 PATCH TOPICAL (09:48)
[2024-04-24] MEDS: Magnesium Chloride 64 MG Delay Rel.Tablet 128 MG PO (09:48)
[2024-04-24] MEDS: Folic Acid 1 MG Tablet PO (09:48)
[2024-04-24 09:49] VITALS: PULSE 71
[2024-04-24] MEDS: Metoprolol(XL)Succ 25 MG Tablet 12.5 MG PO ×2 (09:49→22:57)
[2024-04-24] MEDS: Nystatin Powder 15gm Bottle 1 APPLIC TOPICAL ×2 (09:49→23:01)
[2024-04-24] MEDS: amLODIPine 2.5 MG Tablet PO ×2 (09:49→22:56)
[2024-04-24] MEDS: Cyanocobalamin 500 MCG Tablet 1000 MCG PO (09:50)
[2024-04-24] MEDS: Cholecalciferol (VIT D3) 25 MCG TABLET (1,000 UNITS) PO (09:50)
[2024-04-24] MEDS: Tuberculin,Purif.prot.deriv. 50 TU/ML Vial 0.1 ML ID (16:50)
[2024-04-24 22:57] VITALS: BP 111/70; PULSE 61
[2024-04-25] MEDS: Baclofen 10 MG Tablet 5 MG PO ×3 (06:08→21:31)
[2024-04-25] MEDS: Acetaminophen 500 MG Tablet 1000 MG PO ×3 (06:09→21:30)
[2024-04-25] MEDS: Enoxaparin 40 MG/0.4 ML Syringe SC (06:12)
[2024-04-25 11:56] VITALS: BP 133/74; PULSE 61; RESP 17; TEMP 36.9; O2SAT 95
[2024-04-25] MEDS: Vitamin B Comp W-C Capsule 1 CAP PO (11:59)
[2024-04-25] MEDS: Lidocaine 5% Patch 1 PATCH TOPICAL (12:00)
[2024-04-25] MEDS: Menthol/Lanolin/Calamine/Znox 113 GM Tube 1 APPLIC TOPICAL ×2 (12:00→21:38)
[2024-04-25] MEDS: Folic Acid 1 MG Tablet PO (12:00)
[2024-04-25 12:01] VITALS: PULSE 61
[2024-04-25] MEDS: Metoprolol(XL)Succ 25 MG Tablet 12.5 MG PO ×2 (12:01→21:33)
[2024-04-25] MEDS: amLODIPine 2.5 MG Tablet PO ×2 (12:01→21:39)
[2024-04-25] MEDS: Nystatin Powder 15gm Bottle 1 APPLIC TOPICAL ×2 (12:01→21:38)
[2024-04-25] MEDS: Magnesium Chloride 64 MG Delay Rel.Tablet 128 MG PO (12:01)
[2024-04-25] MEDS: Cyanocobalamin 500 MCG Tablet 1000 MCG PO (12:02)
[2024-04-25] MEDS: Cholecalciferol (VIT D3) 25 MCG TABLET (1,000 UNITS) PO (12:02)
[2024-04-25 20:00] VITALS: RESP 16
[2024-04-25 21:33] VITALS: BP 147/86; PULSE 77
[2024-04-26] MEDS: Acetaminophen 500 MG Tablet 1000 MG PO ×3 (05:41→21:33)
[2024-04-26] MEDS: Enoxaparin 40 MG/0.4 ML Syringe SC (05:42)
[2024-04-26] MEDS: Baclofen 10 MG Tablet 5 MG PO ×3 (05:42→21:33)
[2024-04-26 06:26] VITALS: RESP 16
[2024-04-26 10:17] VITALS: BP 108/83; PULSE 83; RESP 16; TEMP 37.2; O2SAT 95
[2024-04-26 10:19] VITALS: PULSE 83
[2024-04-26] MEDS: Cholecalciferol (VIT D3) 25 MCG TABLET (1,000 UNITS) PO (10:19)
[2024-04-26] MEDS: Vitamin B Comp W-C Capsule 1 CAP PO (10:19)
[2024-04-26] MEDS: amLODIPine 2.5 MG Tablet PO ×2 (10:19→21:33)
[2024-04-26] MEDS: Folic Acid 1 MG Tablet PO (10:19)
[2024-04-26] MEDS: Cyanocobalamin 500 MCG Tablet 1000 MCG PO (10:19)
[2024-04-26] MEDS: Metoprolol(XL)Succ 25 MG Tablet 12.5 MG PO ×2 (10:19→21:33)
[2024-04-26] MEDS: Magnesium Chloride 64 MG Delay Rel.Tablet 128 MG PO (10:19)
[2024-04-26] MEDS: Lidocaine 5% Patch 1 PATCH TOPICAL (10:20)
[2024-04-26] MEDS: Nystatin Powder 15gm Bottle 1 APPLIC TOPICAL ×2 (10:21→21:36)
[2024-04-26] MEDS: Menthol/Lanolin/Calamine/Znox 113 GM Tube 1 APPLIC TOPICAL ×2 (10:22→21:35)
[2024-04-26 21:33] VITALS: BP 132/79; PULSE 62
[2024-04-26 21:48] VITALS: BP 132/79; PULSE 62
[2024-04-27] MEDS: Acetaminophen 500 MG Tablet 1000 MG PO ×3 (05:48→20:53)
[2024-04-27] MEDS: Baclofen 10 MG Tablet 5 MG PO ×3 (05:48→20:54)
[2024-04-27] MEDS: Enoxaparin 40 MG/0.4 ML Syringe SC (05:49)
[2024-04-27 09:05] VITALS: BP 100/66; PULSE 73; RESP 16; TEMP 36.3; O2SAT 96
[2024-04-27] MEDS: Lidocaine 5% Patch 1 PATCH TOPICAL (09:09)
[2024-04-27] MEDS: Vitamin B Comp W-C Capsule 1 CAP PO (09:09)
[2024-04-27 09:10] VITALS: PULSE 73
[2024-04-27] MEDS: Cholecalciferol (VIT D3) 25 MCG TABLET (1,000 UNITS) PO (09:10)
[2024-04-27] MEDS: Magnesium Chloride 64 MG Delay Rel.Tablet 128 MG PO (09:10)
[2024-04-27] MEDS: Metoprolol(XL)Succ 25 MG Tablet 12.5 MG PO ×2 (09:10→20:51)
[2024-04-27] MEDS: Cyanocobalamin 500 MCG Tablet 1000 MCG PO (09:10)
[2024-04-27] MEDS: amLODIPine 2.5 MG Tablet PO ×2 (09:10→20:53)
[2024-04-27] MEDS: Folic Acid 1 MG Tablet PO (09:10)
[2024-04-27] MEDS: Nystatin Powder 15gm Bottle 1 APPLIC TOPICAL ×2 (09:13→20:55)
[2024-04-27] MEDS: Menthol/Lanolin/Calamine/Znox 113 GM Tube 1 APPLIC TOPICAL ×2 (09:13→20:55)
[2024-04-27 11:00] VITALS: BMI 31.9
[2024-04-27 20:51] VITALS: BP 131/84; PULSE 75
[2024-04-27 20:57] VITALS: BP 131/84; PULSE 75
[2024-04-27 21:00] VITALS: PULSE 78; RESP 16
[2024-04-28] MEDS: Baclofen 10 MG Tablet 5 MG PO ×3 (05:16→22:41)
[2024-04-28] MEDS: Acetaminophen 500 MG Tablet 1000 MG PO ×3 (05:17→22:40)
[2024-04-28] MEDS: Enoxaparin 40 MG/0.4 ML Syringe SC (05:17)
[2024-04-28 08:18] VITALS: BP 123/77; PULSE 64
[2024-04-28] MEDS: Lidocaine 5% Patch 1 PATCH TOPICAL (08:18)
[2024-04-28] MEDS: Folic Acid 1 MG Tablet PO (08:18)
[2024-04-28] MEDS: Metoprolol(XL)Succ 25 MG Tablet 12.5 MG PO ×2 (08:18→22:40)
[2024-04-28] MEDS: Magnesium Chloride 64 MG Delay Rel.Tablet 128 MG PO (08:18)
[2024-04-28] MEDS: Vitamin B Comp W-C Capsule 1 CAP PO (08:18)
[2024-04-28] MEDS: amLODIPine 2.5 MG Tablet PO ×2 (08:18→22:40)
[2024-04-28] MEDS: Cyanocobalamin 500 MCG Tablet 1000 MCG PO (08:19)
[2024-04-28] MEDS: Cholecalciferol (VIT D3) 25 MCG TABLET (1,000 UNITS) PO (08:19)
[2024-04-28] MEDS: Nystatin Powder 15gm Bottle 1 APPLIC TOPICAL ×2 (09:40→22:45)
[2024-04-28] MEDS: Menthol/Lanolin/Calamine/Znox 113 GM Tube 1 APPLIC TOPICAL ×2 (09:40→22:45)
[2024-04-28 14:51] VITALS: BP 104/70; PULSE 82; RESP 20; TEMP 35.9; O2SAT 95
[2024-04-28 22:39] VITALS: BP 109/81; PULSE 68; O2SAT 95
[2024-04-28 22:40] VITALS: BP 109/81; PULSE 68
[2024-04-29] MEDS: Baclofen 10 MG Tablet 5 MG PO ×3 (06:07→22:01)
[2024-04-29] MEDS: Enoxaparin 40 MG/0.4 ML Syringe SC (06:07)
[2024-04-29] MEDS: Acetaminophen 500 MG Tablet 1000 MG PO ×3 (06:07→22:03)
[2024-04-29 08:52] VITALS: BP 100/72; PULSE 70; RESP 70; TEMP 37.1; O2SAT 97
[2024-04-29] MEDS: Folic Acid 1 MG Tablet PO (08:57)
[2024-04-29] MEDS: amLODIPine 2.5 MG Tablet PO ×2 (08:57→22:02)
[2024-04-29] MEDS: Vitamin B Comp W-C Capsule 1 CAP PO (08:57)
[2024-04-29] MEDS: Cyanocobalamin 500 MCG Tablet 1000 MCG PO (08:57)
[2024-04-29] MEDS: Magnesium Chloride 64 MG Delay Rel.Tablet 128 MG PO (08:57)
[2024-04-29 08:58] VITALS: BP 100/72; PULSE 70
[2024-04-29] MEDS: Cholecalciferol (VIT D3) 25 MCG TABLET (1,000 UNITS) PO (08:58)
[2024-04-29] MEDS: Lidocaine 5% Patch 1 PATCH TOPICAL (08:58)
[2024-04-29] MEDS: Metoprolol(XL)Succ 25 MG Tablet 12.5 MG PO ×2 (08:58→22:02)
[2024-04-29] MEDS: Nystatin Powder 15gm Bottle 1 APPLIC TOPICAL ×2 (08:58→22:08)
[2024-04-29] MEDS: Menthol/Lanolin/Calamine/Znox 113 GM Tube 1 APPLIC TOPICAL ×2 (08:59→22:08)
--- NOTE | 2024-04-29 11:14 | MDS.RN ---
Information for the MDS was obtained from review of the clinical record, interview of resident, staff, and direct observation of resident?s care.
--- NOTE | 2024-04-29 16:31 | CASEMGMT ---
Social Work SW spoke with pt about discharge planning. Informed pt this worker spoke with the insurance company reviewer this date and acknowledged pt has not returned to baseline and the sister stated she cannot assist further. Reviewer approved continued stay with NRD 05/05 to plan for DC, with anticipated [facility]OM[facility] at next review. SW explained therapy reported pt having difficulty with bed mobility, toilet hygiene, showers and initiation. Sister made it clear when talking to the team that she cannot provide any additional assistance than what she was providing pt prior, specifically with toilet hygiene. SW requested pt consider alternative DC options if she cannot return home, such as hiring a SAMPLE ROOM SUPERVISOR to assist with tasks at home or transferring to a SNF. SW inquired about pt using AE for independence. Pt stated she doesn't like using the AE. SW offered either if the AE can promote independence, then it would keep her from admitting to a SNF. Pt stated she wants to be able to get better in TCU and go home. SW acknowledged, but reiterated sister's firm level of assistance and the insurance will not be extending stay after NRD. SADIQ offered to contact sister to schedule therapy training and pt agreeable. - SW phoned sister to explain above conversation and offer therapy training. Sister agreed and scheduled for 04/30 at 1230. SW updated SHORE HAND DREDGE OR BARGE. Will continue to follow. Eryn Kennedy LINUX SERVER ENGINEER PHARMACEUTICAL WORKER
[2024-04-29 22:02] VITALS: BP 111/69; PULSE 69
[2024-04-30 06:02] LABS: Absolute Lymphocyte Count 1.28 X10^3/uL (0.83-4.51); Absolute Neutrophil Count 3.9 X10^3/uL (2.0-7.7); Basophil# 0.06 X10^3/uL; Eosinophil# 0.13 X10^3/uL; Eosinophils% 2.2 % (0-5); Hematocrit 36.1 % (37-47); Hemoglobin 11.9 g/dL (12.0-15.0); Lymphocyte # 1.28 X10^3/ul (0.83-4.51); Lymphocyte % 21.3 % (19-41); Mean Corpuscular Hgb 32.4 pg (27.0-32.0); Mean Corpuscular Volume 98.4 fL (81-99); Mean Platelet Vol. 8.8 fl (6.2-12.0); Monocyte# 0.62 X10^3/uL; Monocyte% 10.3 % (0-10); NRBC Flagged by Analyzer 0 % (0-5); Neutrophil # 3.89 X10^3/uL (2.7-7.7); Neutrophil % 64.7 % (47-70); Platelet Count 265 K/mm3 (150-450); RBC Distribution Width CV 13.9 % (11.6-14.6); RBC Distribution Width SD 50.2 fl (35.1-43.9); Red Blood Count 3.67 M/mm3 (4.2-5.4)
[2024-04-30] MEDS: Enoxaparin 40 MG/0.4 ML Syringe SC (06:18)
[2024-04-30] MEDS: Acetaminophen 500 MG Tablet 1000 MG PO ×3 (06:18→21:37)
[2024-04-30] MEDS: Baclofen 10 MG Tablet 5 MG PO ×3 (06:18→21:38)
[2024-04-30 06:50] LABS: Anion Gap 5 (5-15); BUN 21 mg/dL (7-18); BUN/Creat Ratio 28.8 RATIO (10-20); Calcium,Total 8.9 mg/dL (8.5-10.1); Chloride 112 mmol/L (98-107); Creatinine, Serum 0.73 mg/dL (0.55-1.02); EST Glomerular Filtration Rate 82 mL/min (>60); Est Glom Filt Rate - Afr Amer 99 mL/min (>60); Estimated Creatinine Clearance 50.34 ml/min; Glucose 96 mg/dL (74-106); Potassium 4.3 mmol/L (3.5-5.1); Sodium Level 140 mmol/L (136-145)
[2024-04-30 09:10] VITALS: BP 103/70; PULSE 81; RESP 18; TEMP 36; O2SAT 94
[2024-04-30] MEDS: Vitamin B Comp W-C Capsule 1 CAP PO (09:12)
[2024-04-30 09:13] VITALS: PULSE 81
[2024-04-30] MEDS: Magnesium Chloride 64 MG Delay Rel.Tablet 128 MG PO (09:13)
[2024-04-30] MEDS: Lidocaine 5% Patch 1 PATCH TOPICAL (09:13)
[2024-04-30] MEDS: Cyanocobalamin 500 MCG Tablet 1000 MCG PO (09:13)
[2024-04-30] MEDS: Metoprolol(XL)Succ 25 MG Tablet 12.5 MG PO ×2 (09:13→21:36)
[2024-04-30] MEDS: Cholecalciferol (VIT D3) 25 MCG TABLET (1,000 UNITS) PO (09:13)
[2024-04-30] MEDS: Folic Acid 1 MG Tablet PO (09:13)
[2024-04-30] MEDS: amLODIPine 2.5 MG Tablet PO ×2 (09:13→21:37)
[2024-04-30] MEDS: Nystatin Powder 15gm Bottle 1 APPLIC TOPICAL ×2 (09:14→21:41)
[2024-04-30] MEDS: Menthol/Lanolin/Calamine/Znox 113 GM Tube 1 APPLIC TOPICAL ×2 (09:14→21:41)
--- NOTE | 2024-04-30 15:29 | CASEMGMT ---
Social Work SW followed up with patient and sister at bedside after therapy training. Answered questions. Explained SNF would be an OOP cost for pt, but therapy will be billed to part B benefit. Sister acknowledged pt has made great improvements, but she still needs improvement with bed mobility and toileting. LAP CUTTER TRUER OPERATOR noted pt is very close but unsure if pt will get there with time given by insurance. SW offered the goal can remain home, but to plan for a SNF, if needed. Pt and sister in agreement, but still have not made a final decision on discharge disposition. SW provided list of SNF providers in [facility] that include quality and resource data via [facility]. Requested pt/sister leave this worker a VM over the weekend of choices for this worker to refer to at the start of the next business day. Both in agreement that [facility] is their first choice. SW cautioned there may not be a bed available and to choose 2 other options. Both agreed. SW will continue to follow. - SADIQ referred to [facility] via [facility]. Eryn Kennedy POWER SHOVEL ENGINEER GREEN MEAT PACKER
[2024-04-30 21:36] VITALS: BP 106/73; PULSE 65
[2024-05-01] MEDS: Acetaminophen 500 MG Tablet 1000 MG PO ×3 (05:41→20:17)
[2024-05-01] MEDS: Enoxaparin 40 MG/0.4 ML Syringe SC (05:42)
[2024-05-01] MEDS: Baclofen 10 MG Tablet 5 MG PO ×3 (05:42→20:17)
[2024-05-01 08:30] VITALS: BP 102/72; PULSE 76; RESP 16; TEMP 36.9; O2SAT 94
[2024-05-01] MEDS: Lidocaine 5% Patch 1 PATCH TOPICAL (08:35)
[2024-05-01] MEDS: Folic Acid 1 MG Tablet PO (08:35)
[2024-05-01] MEDS: Vitamin B Comp W-C Capsule 1 CAP PO (08:35)
[2024-05-01] MEDS: Magnesium Chloride 64 MG Delay Rel.Tablet 128 MG PO (08:35)
[2024-05-01 08:36] VITALS: PULSE 76
[2024-05-01] MEDS: Metoprolol(XL)Succ 25 MG Tablet 12.5 MG PO ×2 (08:36→20:17)
[2024-05-01] MEDS: Cyanocobalamin 500 MCG Tablet 1000 MCG PO (08:36)
[2024-05-01] MEDS: Cholecalciferol (VIT D3) 25 MCG TABLET (1,000 UNITS) PO (08:36)
[2024-05-01] MEDS: amLODIPine 2.5 MG Tablet PO ×2 (08:36→20:17)
[2024-05-01] MEDS: Nystatin Powder 15gm Bottle 1 APPLIC TOPICAL ×2 (08:38→20:19)
[2024-05-01] MEDS: Menthol/Lanolin/Calamine/Znox 113 GM Tube 1 APPLIC TOPICAL ×2 (08:39→20:19)
[2024-05-01 20:17] VITALS: BP 114/75; PULSE 78
[2024-05-01 20:22] VITALS: BP 114/75; PULSE 78
[2024-05-01 20:28] VITALS: PULSE 78; RESP 16
[2024-05-02] MEDS: Baclofen 10 MG Tablet 5 MG PO ×3 (06:10→22:14)
[2024-05-02] MEDS: Acetaminophen 500 MG Tablet 1000 MG PO ×3 (06:10→22:14)
[2024-05-02] MEDS: Enoxaparin 40 MG/0.4 ML Syringe SC (06:10)
[2024-05-02 09:03] VITALS: BP 103/75; PULSE 72; RESP 17; TEMP 37.2; O2SAT 95
[2024-05-02] MEDS: Vitamin B Comp W-C Capsule 1 CAP PO (09:05)
[2024-05-02] MEDS: Menthol/Lanolin/Calamine/Znox 113 GM Tube 1 APPLIC TOPICAL ×2 (09:05→22:15)
[2024-05-02] MEDS: Folic Acid 1 MG Tablet PO (09:06)
[2024-05-02] MEDS: Magnesium Chloride 64 MG Delay Rel.Tablet 128 MG PO (09:06)
[2024-05-02] MEDS: Lidocaine 5% Patch 1 PATCH TOPICAL (09:06)
[2024-05-02] MEDS: Nystatin Powder 15gm Bottle 1 APPLIC TOPICAL ×2 (09:06→22:16)
[2024-05-02 09:07] VITALS: PULSE 72
[2024-05-02] MEDS: Metoprolol(XL)Succ 25 MG Tablet 12.5 MG PO ×2 (09:07→22:13)
[2024-05-02] MEDS: amLODIPine 2.5 MG Tablet PO ×2 (09:07→22:14)
[2024-05-02] MEDS: Cyanocobalamin 500 MCG Tablet 1000 MCG PO (09:07)
[2024-05-02] MEDS: Cholecalciferol (VIT D3) 25 MCG TABLET (1,000 UNITS) PO (09:08)
[2024-05-02 20:00] VITALS: PULSE 105; RESP 16; O2SAT 97
[2024-05-02 22:13] VITALS: BP 132/81; PULSE 67
[2024-05-03] MEDS: Acetaminophen 500 MG Tablet 1000 MG PO ×3 (05:25→20:59)
[2024-05-03] MEDS: Enoxaparin 40 MG/0.4 ML Syringe SC (05:25)
[2024-05-03] MEDS: Baclofen 10 MG Tablet 5 MG PO ×3 (05:25→21:01)
[2024-05-03 05:44] VITALS: RESP 16
[2024-05-03] MEDS: Lidocaine 5% Patch 1 PATCH TOPICAL (09:22)
[2024-05-03] MEDS: Cyanocobalamin 500 MCG Tablet 1000 MCG PO (09:22)
[2024-05-03] MEDS: Cholecalciferol (VIT D3) 25 MCG TABLET (1,000 UNITS) PO (09:22)
[2024-05-03 09:23] VITALS: PULSE 84
[2024-05-03] MEDS: amLODIPine 2.5 MG Tablet PO ×2 (09:23→21:02)
[2024-05-03] MEDS: Folic Acid 1 MG Tablet PO (09:23)
[2024-05-03] MEDS: Metoprolol(XL)Succ 25 MG Tablet 12.5 MG PO ×2 (09:23→21:01)
[2024-05-03] MEDS: Magnesium Chloride 64 MG Delay Rel.Tablet 128 MG PO (09:23)
[2024-05-03] MEDS: Vitamin B Comp W-C Capsule 1 CAP PO (09:23)
[2024-05-03] MEDS: Menthol/Lanolin/Calamine/Znox 113 GM Tube 1 APPLIC TOPICAL ×2 (09:26→21:03)
[2024-05-03] MEDS: Nystatin Powder 15gm Bottle 1 APPLIC TOPICAL ×2 (09:26→21:03)
[2024-05-03 09:28] VITALS: BP 103/76; PULSE 84; RESP 16; TEMP 36.8; O2SAT 95
--- NOTE | 2024-05-03 09:52 | CASEMGMT ---
Social Work SW followed up with pt to discuss DC plans. Pt has elected to remain in TCU paying privately, once insurance issues LCD. SW educated to $660/day cost, all inclusive, 5 days/wk of therapy, and 21 days of payment up front, given to [facility]'s bingo cashier's office. Pt expressed understanding. SW confirmed and notified Electric Meter Setter. Eryn Kennedy TIE BUYER DENTAL HYGIENIST
[2024-05-03 21:01] VITALS: BP 133/79; PULSE 65
[2024-05-03 21:08] VITALS: BP 133/79; PULSE 65
[2024-05-04] MEDS: Acetaminophen 500 MG Tablet 1000 MG PO ×3 (06:13→21:54)
[2024-05-04] MEDS: Baclofen 10 MG Tablet 5 MG PO ×3 (06:13→21:54)
[2024-05-04] MEDS: Enoxaparin 40 MG/0.4 ML Syringe SC (06:14)
[2024-05-04 09:12] VITALS: BP 133/63; BP 141/59; PULSE 65; PULSE 69; RESP 18; TEMP 37; O2SAT 95
[2024-05-04] MEDS: Menthol/Lanolin/Calamine/Znox 113 GM Tube 1 APPLIC TOPICAL ×2 (09:12→21:59)
[2024-05-04] MEDS: Vitamin B Comp W-C Capsule 1 CAP PO (09:12)
[2024-05-04] MEDS: Cyanocobalamin 500 MCG Tablet 1000 MCG PO (09:12)
[2024-05-04] MEDS: Folic Acid 1 MG Tablet PO (09:12)
[2024-05-04] MEDS: Metoprolol(XL)Succ 25 MG Tablet 12.5 MG PO ×2 (09:12→21:55)
[2024-05-04] MEDS: Nystatin Powder 15gm Bottle 1 APPLIC TOPICAL ×2 (09:12→21:58)
[2024-05-04] MEDS: Cholecalciferol (VIT D3) 25 MCG TABLET (1,000 UNITS) PO (09:12)
[2024-05-04] MEDS: Magnesium Chloride 64 MG Delay Rel.Tablet 128 MG PO (09:12)
[2024-05-04] MEDS: Lidocaine 5% Patch 1 PATCH TOPICAL (09:12)
[2024-05-04] MEDS: amLODIPine 2.5 MG Tablet PO ×2 (09:13→21:54)
[2024-05-04 10:00] VITALS: PULSE 65; O2SAT 95
[2024-05-04 11:00] VITALS: BMI 31.8
[2024-05-04 21:55] VITALS: BP 147/78; PULSE 71
[2024-05-05] MEDS: Enoxaparin 40 MG/0.4 ML Syringe SC (05:18)
[2024-05-05] MEDS: Baclofen 10 MG Tablet 5 MG PO ×3 (05:18→22:08)
[2024-05-05] MEDS: Acetaminophen 500 MG Tablet 1000 MG PO ×3 (05:18→22:08)
[2024-05-05 05:24] VITALS: PULSE 66; RESP 16; O2SAT 98
[2024-05-05 09:21] VITALS: BP 100/73; PULSE 75; RESP 17; TEMP 36.5; O2SAT 95
[2024-05-05] MEDS: Vitamin B Comp W-C Capsule 1 CAP PO (09:24)
[2024-05-05] MEDS: Nystatin Powder 15gm Bottle 1 APPLIC TOPICAL ×2 (09:25→22:10)
[2024-05-05] MEDS: Folic Acid 1 MG Tablet PO (09:25)
[2024-05-05] MEDS: Menthol/Lanolin/Calamine/Znox 113 GM Tube 1 APPLIC TOPICAL ×2 (09:25→22:10)
[2024-05-05] MEDS: Magnesium Chloride 64 MG Delay Rel.Tablet 128 MG PO (09:25)
[2024-05-05] MEDS: Lidocaine 5% Patch 1 PATCH TOPICAL (09:25)
[2024-05-05 09:26] VITALS: PULSE 75
[2024-05-05] MEDS: Cyanocobalamin 500 MCG Tablet 1000 MCG PO (09:26)
[2024-05-05] MEDS: Metoprolol(XL)Succ 25 MG Tablet 12.5 MG PO ×2 (09:26→22:08)
[2024-05-05] MEDS: amLODIPine 2.5 MG Tablet PO ×2 (09:26→22:08)
[2024-05-05] MEDS: Cholecalciferol (VIT D3) 25 MCG TABLET (1,000 UNITS) PO (09:27)
[2024-05-05 22:08] VITALS: BP 119/77; PULSE 65
[2024-05-05 22:11] VITALS: BP 119/77; PULSE 65
[2024-05-06] MEDS: Baclofen 10 MG Tablet 5 MG PO ×3 (06:14→20:48)
[2024-05-06] MEDS: Enoxaparin 40 MG/0.4 ML Syringe SC (06:14)
[2024-05-06] MEDS: Acetaminophen 500 MG Tablet 1000 MG PO ×3 (06:15→20:50)
[2024-05-06 09:09] VITALS: BP 102/69; PULSE 83; RESP 17; TEMP 36.2
[2024-05-06] MEDS: Vitamin B Comp W-C Capsule 1 CAP PO (09:14)
[2024-05-06] MEDS: Menthol/Lanolin/Calamine/Znox 113 GM Tube 1 APPLIC TOPICAL ×2 (09:14→20:45)
[2024-05-06] MEDS: Folic Acid 1 MG Tablet PO (09:14)
[2024-05-06 09:15] VITALS: PULSE 83
[2024-05-06] MEDS: amLODIPine 2.5 MG Tablet PO ×2 (09:15→20:48)
[2024-05-06] MEDS: Magnesium Chloride 64 MG Delay Rel.Tablet 128 MG PO (09:15)
[2024-05-06] MEDS: Lidocaine 5% Patch 1 PATCH TOPICAL (09:15)
[2024-05-06] MEDS: Metoprolol(XL)Succ 25 MG Tablet 12.5 MG PO ×2 (09:15→20:49)
[2024-05-06] MEDS: Cholecalciferol (VIT D3) 25 MCG TABLET (1,000 UNITS) PO (09:16)
[2024-05-06] MEDS: Nystatin Powder 15gm Bottle 1 APPLIC TOPICAL ×2 (09:16→20:46)
[2024-05-06] MEDS: Cyanocobalamin 500 MCG Tablet 1000 MCG PO (09:16)
--- NOTE | 2024-05-06 09:23 | CASEMGMT ---
Social Work SW updated pt that insurance approved with NRD 05/11, also pt's copay coverage: days 1-20 = $10/day; days 21-100 = $214/day. Pt appreciative of information. SW will continue to follow. Eryn Kennedy WATER SOFTENER SERVICER AND INSTALLER VALET
[2024-05-06 20:49] VITALS: PULSE 68
[2024-05-07] MEDS: Baclofen 10 MG Tablet 5 MG PO ×3 (05:00→22:37)
[2024-05-07] MEDS: Acetaminophen 500 MG Tablet 1000 MG PO ×3 (05:00→22:38)
[2024-05-07] MEDS: Enoxaparin 40 MG/0.4 ML Syringe SC (05:00)
[2024-05-07 06:05] LABS: Absolute Neutrophil Count 2.9 X10^3/uL (2.0-7.7); Basophil# 0.03 X10^3/uL; Basophil% 0.6 % (0-1); Eosinophil# 0.14 X10^3/uL; Hematocrit 35.3 % (37-47); Hemoglobin 11.3 g/dL (12.0-15.0); Lymphocyte % 25.4 % (19-41); Mean Corpuscular Hgb 31.7 pg (27.0-32.0); Mean Corpuscular Volume 98.9 fL (81-99); Mean Platelet Vol. 8.9 fl (6.2-12.0); Monocyte# 0.48 X10^3/uL; Monocyte% 10.2 % (0-10); NRBC Flagged by Analyzer 0 % (0-5); Neutrophil # 2.86 X10^3/uL (2.7-7.7); Neutrophil % 60.6 % (47-70); Platelet Count 208 K/mm3 (150-450); RBC Distribution Width CV 13.7 % (11.6-14.6); RBC Distribution Width SD 50.4 fl (35.1-43.9); Red Blood Count 3.57 M/mm3 (4.2-5.4); White Blood Count 4.7 K/mm3 (4.4-11.0)
[2024-05-07 06:41] LABS: Anion Gap 10 (5-15); BUN 15 mg/dL (7-18); BUN/Creat Ratio 23.5 RATIO (10-20); Calcium,Total 8.8 mg/dL (8.5-10.1); Chloride 110 mmol/L (98-107); Creatinine, Serum 0.64 mg/dL (0.55-1.02); EST Glomerular Filtration Rate 96 mL/min (>60); Est Glom Filt Rate - Afr Amer 116 mL/min (>60); Estimated Creatinine Clearance 50.29 ml/min; Glucose 94 mg/dL (74-106); Potassium 4.1 mmol/L (3.5-5.1); Sodium Level 142 mmol/L (136-145)
[2024-05-07 08:11] VITALS: BP 120/84; PULSE 79; RESP 18; TEMP 36.7; O2SAT 95
[2024-05-07] MEDS: Menthol/Lanolin/Calamine/Znox 113 GM Tube 1 APPLIC TOPICAL ×2 (08:13→22:59)
[2024-05-07] MEDS: Vitamin B Comp W-C Capsule 1 CAP PO (08:13)
[2024-05-07] MEDS: Lidocaine 5% Patch 1 PATCH TOPICAL (08:14)
[2024-05-07] MEDS: Folic Acid 1 MG Tablet PO (08:14)
[2024-05-07] MEDS: Magnesium Chloride 64 MG Delay Rel.Tablet 128 MG PO (08:14)
[2024-05-07] MEDS: Nystatin Powder 15gm Bottle 1 APPLIC TOPICAL ×2 (08:14→23:00)
[2024-05-07 08:15] VITALS: PULSE 79
[2024-05-07] MEDS: Cholecalciferol (VIT D3) 25 MCG TABLET (1,000 UNITS) PO (08:15)
[2024-05-07] MEDS: Cyanocobalamin 500 MCG Tablet 1000 MCG PO (08:15)
[2024-05-07] MEDS: Metoprolol(XL)Succ 25 MG Tablet 12.5 MG PO ×2 (08:15→22:37)
[2024-05-07] MEDS: amLODIPine 2.5 MG Tablet PO ×2 (08:15→22:39)
[2024-05-07] MEDS: oxyCODONE 5 MG Tablet PO (22:36)
[2024-05-07 22:37] VITALS: BP 137/90; PULSE 71
[2024-05-08] MEDS: Enoxaparin 40 MG/0.4 ML Syringe SC (05:31)
[2024-05-08] MEDS: Acetaminophen 500 MG Tablet 1000 MG PO ×3 (05:33→21:15)
[2024-05-08] MEDS: Baclofen 10 MG Tablet 5 MG PO ×3 (05:33→21:13)
[2024-05-08] MEDS: Folic Acid 1 MG Tablet PO (09:18)
[2024-05-08] MEDS: amLODIPine 2.5 MG Tablet PO ×2 (09:18→21:13)
[2024-05-08] MEDS: Cyanocobalamin 500 MCG Tablet 1000 MCG PO (09:18)
[2024-05-08] MEDS: Magnesium Chloride 64 MG Delay Rel.Tablet 128 MG PO (09:18)
[2024-05-08] MEDS: Lidocaine 5% Patch 1 PATCH TOPICAL (09:18)
[2024-05-08] MEDS: Cholecalciferol (VIT D3) 25 MCG TABLET (1,000 UNITS) PO (09:18)
[2024-05-08] MEDS: Vitamin B Comp W-C Capsule 1 CAP PO (09:18)
[2024-05-08] MEDS: Menthol/Lanolin/Calamine/Znox 113 GM Tube 1 APPLIC TOPICAL ×2 (09:18→21:18)
[2024-05-08 09:22] VITALS: PULSE 94
[2024-05-08] MEDS: Metoprolol(XL)Succ 25 MG Tablet 12.5 MG PO ×2 (09:22→21:14)
[2024-05-08] MEDS: Nystatin Powder 15gm Bottle 1 APPLIC TOPICAL ×2 (09:25→21:18)
[2024-05-08 10:31] VITALS: BP 100/70; PULSE 94; RESP 16; TEMP 36.4; O2SAT 97
[2024-05-08 21:14] VITALS: BP 119/83; PULSE 94
[2024-05-08] MEDS: oxyCODONE 5 MG Tablet PO (23:42)
[2024-05-09] MEDS: Acetaminophen 500 MG Tablet 1000 MG PO ×3 (05:22→21:03)
[2024-05-09] MEDS: Enoxaparin 40 MG/0.4 ML Syringe SC (05:22)
[2024-05-09] MEDS: Baclofen 10 MG Tablet 5 MG PO ×3 (05:23→21:04)
[2024-05-09] MEDS: Lidocaine 5% Patch 1 PATCH TOPICAL (08:32)
[2024-05-09] MEDS: Vitamin B Comp W-C Capsule 1 CAP PO (08:32)
[2024-05-09 08:33] VITALS: PULSE 91
[2024-05-09] MEDS: amLODIPine 2.5 MG Tablet PO ×2 (08:33→21:04)
[2024-05-09] MEDS: Cholecalciferol (VIT D3) 25 MCG TABLET (1,000 UNITS) PO (08:33)
[2024-05-09] MEDS: Nystatin Powder 15gm Bottle 1 APPLIC TOPICAL ×2 (08:33→21:05)
[2024-05-09] MEDS: Metoprolol(XL)Succ 25 MG Tablet 12.5 MG PO ×2 (08:33→21:03)
[2024-05-09] MEDS: Magnesium Chloride 64 MG Delay Rel.Tablet 128 MG PO (08:33)
[2024-05-09] MEDS: Folic Acid 1 MG Tablet PO (08:33)
[2024-05-09] MEDS: Menthol/Lanolin/Calamine/Znox 113 GM Tube 1 APPLIC TOPICAL ×2 (08:33→21:04)
[2024-05-09] MEDS: Cyanocobalamin 500 MCG Tablet 1000 MCG PO (08:33)
[2024-05-09 09:54] VITALS: BP 113/73; PULSE 91; RESP 18; TEMP 36.5; O2SAT 98
[2024-05-09 21:03] VITALS: BP 142/87; PULSE 76
[2024-05-09] MEDS: oxyCODONE 5 MG Tablet PO (23:16)
[2024-05-10] MEDS: Baclofen 10 MG Tablet 5 MG PO ×3 (05:51→21:00)
[2024-05-10] MEDS: Acetaminophen 500 MG Tablet 1000 MG PO ×3 (05:51→20:59)
[2024-05-10] MEDS: Enoxaparin 40 MG/0.4 ML Syringe SC (05:51)
[2024-05-10 08:24] VITALS: PULSE 91
[2024-05-10] MEDS: Folic Acid 1 MG Tablet PO (08:24)
[2024-05-10] MEDS: Cyanocobalamin 500 MCG Tablet 1000 MCG PO (08:24)
[2024-05-10] MEDS: Magnesium Chloride 64 MG Delay Rel.Tablet 128 MG PO (08:24)
[2024-05-10] MEDS: Metoprolol(XL)Succ 25 MG Tablet 12.5 MG PO ×2 (08:24→21:00)
[2024-05-10] MEDS: Cholecalciferol (VIT D3) 25 MCG TABLET (1,000 UNITS) PO (08:24)
[2024-05-10] MEDS: amLODIPine 2.5 MG Tablet PO ×2 (08:24→21:00)
[2024-05-10] MEDS: Vitamin B Comp W-C Capsule 1 CAP PO (08:24)
[2024-05-10] MEDS: Lidocaine 5% Patch 1 PATCH TOPICAL (08:28)
[2024-05-10] MEDS: Menthol/Lanolin/Calamine/Znox 113 GM Tube 1 APPLIC TOPICAL ×2 (08:29→21:04)
[2024-05-10] MEDS: Nystatin Powder 15gm Bottle 1 APPLIC TOPICAL ×2 (08:29→21:04)
[2024-05-10 15:35] VITALS: BP 121/86; PULSE 78; RESP 15; TEMP 36.5; O2SAT 97
[2024-05-10] MEDS: oxyCODONE 5 MG Tablet PO ×2 (15:54→20:58)
--- NOTE | 2024-05-10 20:00 | PCM.TCUNOT ---
Subjective Subjective Resident seen, examined. She has no new complaints. She continues to have back pain, but is relieved by her pain medications. She has appointment with [facility] spine surgery 05/26/2024. Objective Data Objective Data Vital Signs: Vital Signs Temp Pulse Resp BP Pulse Ox O2 Del Method 97.7 F L 78 15 121/86 H 97 Room Air 05/10/24 15:35 05/10/24 15:35 05/10/24 15:35 05/10/24 15:35 05/10/24 15:35 05/10/24 15:35 Oxygen Delivery Method Room Air Weight: 69.173 kg Body Mass Index (BMI) 31.8 Intake & Output: Intake and Output for Last 24 Hours 05/08/24 05/09/24 05/10/24 23:59 23:59 23:59 Intake Total 480 / 480 600 / 600 360 / 360 Balance 480 / 480 600 / 600 360 / 360 Lab / Micro Data 05/07/24 05:45 05/07/24 05:45 Physical Exam Const alert General Appearance: cooperative HEENT normocephalic Eyes PERRL and EOMs intact bilaterally Neck supple, no JVD and no carotid bruits Resp normal respiratory effort, normal air movement and clear to auscultation bilaterally Cardio regular rate and regular rhythm GI normal to inspection, nondistended, normoactive bowel sounds, non-tender and non-distended Extremity normal capillary refill General Extremity: Negative for edema Skin no rashes or lesions noted General Skin Exam: no breakdown Psych affect normal Appearance: appropriate Assessment & Plan Assessment/Plan (1) Debility: (2) Intractable low back pain: (3) Radiculopathy of lumbar region: (4) Compression fracture of L1 vertebra: (5) Postmenopausal bleeding: (6) Essential (primary) hypertension: (7) Sarcoidosis: (8) Neuropathic pain, leg, bilateral: (9) Vitamin D deficiency: (10) Hypomagnesemia: PLAN: Plan 78 year old female with below past medical history hospitalized for intractable low back pain 2/2 L1 compression fracture, complicated by lumbar spinal stenosis, postmenopausal bleeding, admitted to TCU with debility, here for rehabilitation, strengthening, prior to discharge home with sister/caregiver. Debility - PT/OT. Pain - Tylenol 1000mg q8, Tramadol 50mg q6 prn pain (1-5), Oxycodone 5mg q4 prn pain (6-10), Lidoderm 1 patch td daily. Bowel - senna/colace 2 tablets bid prn, Magnesium citrate 300mL po daily prn. Adult immunization - Administer pneumonia vaccine, covid vaccine, flu vaccine as appropriate. DVT prophylaxis - Lovenox 40mg sc daily. Hypertension - Metoprolol succinate 12.5mg bid, Amlodipine 2.5mg bid. Muscle spasm - Baclofen 5mg tid. Vitamin D deficiency - D3 25mcg daily. Vitamin B12 deficiency - B12 1000mcg daily. Folate deficiency - Folic acid 1mg daily. Hypomagnesemia - Magnesium chloride 128mg daily. Tinea Corporis - Nystatin powder topical bid. Leg cramps - Vitamin B complex 1 capsule daily. Skin irritation - Calmoseptine topical bid. Postmenopausal bleeding - pelvic ultrasound showed heterogeneous thickening, follow up MANIFOLD BUILDER outpatient.
[2024-05-10 21:00] VITALS: BP 120/82; PULSE 74
[2024-05-10] MEDS: Senna/Docusate Sodium 1 Tablet 2 TABLET PO (21:03)
[2024-05-10 21:08] VITALS: BP 120/82; PULSE 74
[2024-05-10 21:09] VITALS: PULSE 74; RESP 16
[2024-05-11] MEDS: oxyCODONE 5 MG Tablet PO ×5 (01:28→23:09)
[2024-05-11] MEDS: Baclofen 10 MG Tablet 5 MG PO ×3 (05:45→21:50)
[2024-05-11] MEDS: Acetaminophen 500 MG Tablet 1000 MG PO ×3 (05:46→21:50)
[2024-05-11] MEDS: Enoxaparin 40 MG/0.4 ML Syringe SC (05:46)
[2024-05-11 05:54] VITALS: RESP 16
[2024-05-11 08:32] VITALS: BP 144/91; PULSE 73
[2024-05-11] MEDS: Menthol/Lanolin/Calamine/Znox 113 GM Tube 1 APPLIC TOPICAL ×2 (08:34→21:47)
[2024-05-11] MEDS: Vitamin B Comp W-C Capsule 1 CAP PO (08:34)
[2024-05-11] MEDS: Folic Acid 1 MG Tablet PO (08:34)
[2024-05-11] MEDS: Nystatin Powder 15gm Bottle 1 APPLIC TOPICAL ×2 (08:35→21:47)
[2024-05-11] MEDS: amLODIPine 2.5 MG Tablet PO ×2 (08:35→21:50)
[2024-05-11] MEDS: Magnesium Chloride 64 MG Delay Rel.Tablet 128 MG PO (08:35)
[2024-05-11 08:36] VITALS: PULSE 73
[2024-05-11] MEDS: Cyanocobalamin 500 MCG Tablet 1000 MCG PO (08:36)
[2024-05-11] MEDS: Metoprolol(XL)Succ 25 MG Tablet 12.5 MG PO ×2 (08:36→21:50)
[2024-05-11] MEDS: Cholecalciferol (VIT D3) 25 MCG TABLET (1,000 UNITS) PO (08:36)
[2024-05-11] MEDS: Lidocaine 5% Patch 1 PATCH TOPICAL (10:21)
[2024-05-11 11:00] VITALS: BMI 32.1
[2024-05-11 16:00] VITALS: BP 127/78; PULSE 58; RESP 14; TEMP 36.6; O2SAT 95
[2024-05-11 21:50] VITALS: BP 143/87; PULSE 61
[2024-05-11 21:52] VITALS: BP 143/87; PULSE 61
[2024-05-11] MEDS: Senna/Docusate Sodium 1 Tablet 2 TABLET PO (21:54)
[2024-05-12] MEDS: Enoxaparin 40 MG/0.4 ML Syringe SC (05:24)
[2024-05-12] MEDS: Acetaminophen 500 MG Tablet 1000 MG PO ×3 (05:24→20:55)
[2024-05-12] MEDS: Baclofen 10 MG Tablet 5 MG PO ×3 (05:24→20:55)
[2024-05-12] MEDS: oxyCODONE 5 MG Tablet PO ×4 (05:24→23:29)
[2024-05-12] MEDS: Nystatin Powder 15gm Bottle 1 APPLIC TOPICAL ×2 (09:31→21:01)
[2024-05-12 09:32] VITALS: PULSE 78
[2024-05-12] MEDS: Metoprolol(XL)Succ 25 MG Tablet 12.5 MG PO ×2 (09:32→20:55)
[2024-05-12] MEDS: Cholecalciferol (VIT D3) 25 MCG TABLET (1,000 UNITS) PO (09:32)
[2024-05-12] MEDS: Vitamin B Comp W-C Capsule 1 CAP PO (09:32)
[2024-05-12] MEDS: Lidocaine 5% Patch 1 PATCH TOPICAL (09:32)
[2024-05-12] MEDS: Magnesium Chloride 64 MG Delay Rel.Tablet 128 MG PO (09:32)
[2024-05-12] MEDS: Cyanocobalamin 500 MCG Tablet 1000 MCG PO (09:32)
[2024-05-12] MEDS: Folic Acid 1 MG Tablet PO (09:33)
[2024-05-12] MEDS: amLODIPine 2.5 MG Tablet PO ×2 (09:34→20:56)
[2024-05-12] MEDS: Menthol/Lanolin/Calamine/Znox 113 GM Tube 1 APPLIC TOPICAL ×2 (09:34→21:01)
[2024-05-12 09:38] VITALS: BP 140/83; PULSE 78; RESP 17; TEMP 36.6; O2SAT 97
[2024-05-12 16:33] VITALS: PULSE 59; RESP 16; O2SAT 96
[2024-05-12 20:55] VITALS: BP 128/84; PULSE 62
[2024-05-13] MEDS: Baclofen 10 MG Tablet 5 MG PO ×3 (05:13→20:16)
[2024-05-13] MEDS: Acetaminophen 500 MG Tablet 1000 MG PO ×3 (05:13→20:17)
[2024-05-13] MEDS: Enoxaparin 40 MG/0.4 ML Syringe SC (05:14)
[2024-05-13] MEDS: oxyCODONE 5 MG Tablet PO ×3 (09:28→23:21)
[2024-05-13 09:29] VITALS: PULSE 65
[2024-05-13] MEDS: Vitamin B Comp W-C Capsule 1 CAP PO (09:29)
[2024-05-13] MEDS: amLODIPine 2.5 MG Tablet PO ×2 (09:29→20:18)
[2024-05-13] MEDS: Cholecalciferol (VIT D3) 25 MCG TABLET (1,000 UNITS) PO (09:29)
[2024-05-13] MEDS: Lidocaine 5% Patch 1 PATCH TOPICAL (09:29)
[2024-05-13] MEDS: Folic Acid 1 MG Tablet PO (09:29)
[2024-05-13] MEDS: Magnesium Chloride 64 MG Delay Rel.Tablet 128 MG PO (09:29)
[2024-05-13] MEDS: Cyanocobalamin 500 MCG Tablet 1000 MCG PO (09:29)
[2024-05-13] MEDS: Metoprolol(XL)Succ 25 MG Tablet 12.5 MG PO ×2 (09:29→20:16)
[2024-05-13] MEDS: Menthol/Lanolin/Calamine/Znox 113 GM Tube 1 APPLIC TOPICAL ×2 (09:33→20:20)
[2024-05-13] MEDS: Nystatin Powder 15gm Bottle 1 APPLIC TOPICAL ×2 (09:33→20:21)
[2024-05-13 15:27] VITALS: BP 138/91; PULSE 76; RESP 16; TEMP 36.7; O2SAT 94
[2024-05-13 20:16] VITALS: BP 116/73; PULSE 67
[2024-05-14] MEDS: Acetaminophen 500 MG Tablet 1000 MG PO ×3 (05:46→22:04)
[2024-05-14] MEDS: Baclofen 10 MG Tablet 5 MG PO ×3 (05:46→22:01)
[2024-05-14] MEDS: Enoxaparin 40 MG/0.4 ML Syringe SC (05:47)
[2024-05-14 07:02] LABS: Absolute Lymphocyte Count 1.29 X10^3/uL (0.83-4.51); Absolute Neutrophil Count 2.8 X10^3/uL (2.0-7.7); Basophil# 0.04 X10^3/uL; Basophil% 0.8 % (0-1); Eosinophil# 0.16 X10^3/uL; Eosinophils% 3.2 % (0-5); Hematocrit 33.9 % (37-47); Lymphocyte # 1.29 X10^3/ul (0.83-4.51); Lymphocyte % 26.2 % (19-41); Mean Corp Hgb Conc 32.4 g/dL (32-36); Mean Corpuscular Hgb 32.2 pg (27.0-32.0); Mean Corpuscular Volume 99.1 fL (81-99); Mean Platelet Vol. 9.3 fl (6.2-12.0); Monocyte# 0.61 X10^3/uL; Monocyte% 12.4 % (0-10); NRBC Flagged by Analyzer 0 % (0-5); Neutrophil # 2.81 X10^3/uL (2.7-7.7); Platelet Count 196 K/mm3 (150-450); RBC Distribution Width CV 13.6 % (11.6-14.6); RBC Distribution Width SD 49.5 fl (35.1-43.9); Red Blood Count 3.42 M/mm3 (4.2-5.4); White Blood Count 4.9 K/mm3 (4.4-11.0)
[2024-05-14 07:41] LABS: Anion Gap 6 (5-15); BUN 14 mg/dL (7-18); BUN/Creat Ratio 22.1 RATIO (10-20); Calcium,Total 9.2 mg/dL (8.5-10.1); Chloride 108 mmol/L (98-107); Creatinine, Serum 0.63 mg/dL (0.55-1.02); EST Glomerular Filtration Rate 96 mL/min (>60); Est Glom Filt Rate - Afr Amer 117 mL/min (>60); Estimated Creatinine Clearance 50.48 ml/min; Glucose 88 mg/dL (74-106); Potassium 4.1 mmol/L (3.5-5.1); Sodium Level 137 mmol/L (136-145)
[2024-05-14 09:14] VITALS: BP 107/67; PULSE 77; RESP 17; TEMP 36.9; O2SAT 93
[2024-05-14] MEDS: Vitamin B Comp W-C Capsule 1 CAP PO (09:16)
[2024-05-14] MEDS: Magnesium Chloride 64 MG Delay Rel.Tablet 128 MG PO (09:17)
[2024-05-14] MEDS: Menthol/Lanolin/Calamine/Znox 113 GM Tube 1 APPLIC TOPICAL ×2 (09:17→22:01)
[2024-05-14] MEDS: Lidocaine 5% Patch 1 PATCH TOPICAL (09:17)
[2024-05-14] MEDS: Nystatin Powder 15gm Bottle 1 APPLIC TOPICAL ×2 (09:17→22:00)
[2024-05-14] MEDS: Folic Acid 1 MG Tablet PO (09:17)
[2024-05-14 09:18] VITALS: PULSE 77
[2024-05-14] MEDS: amLODIPine 2.5 MG Tablet PO ×2 (09:18→22:02)
[2024-05-14] MEDS: Metoprolol(XL)Succ 25 MG Tablet 12.5 MG PO ×2 (09:18→22:02)
[2024-05-14] MEDS: Cholecalciferol (VIT D3) 25 MCG TABLET (1,000 UNITS) PO (09:19)
[2024-05-14] MEDS: Cyanocobalamin 500 MCG Tablet 1000 MCG PO (09:19)
[2024-05-14] MEDS: oxyCODONE 5 MG Tablet PO (09:56)
--- NOTE | 2024-05-14 15:53 | CASEMGMT ---
Social Work SW collaborated with IDT and pt is at max potential for therapy; IDT setting DC date for 05/21. [facility] approved through/NRD 05/20. - SW spoke with pt at bedside. Discussed pt's progress in therapy, and insurance coverage through 05/20, though, explained pt is at max potential with therapy and setting DC date for 05/21. SW offered for sister to attend therapy again. SW offered home at DC or transferring to another SNF to receive the care she needs. SW educated to hiring nonskilled AIR BRUSH ARTIST at home if needed. Pt expressed understanding and will take time to process to decide on the DC plan. SW will continue to follow. Plan: DC 05/21, destination TBD Eryn Kennedy TESTING TECH TOWER FOREMAN
--- NOTE | 2024-05-14 19:50 | NURSING ---
Addendum entered by Becka Cowan 05/15/24 05:51: No adverse effects observed or reported related to new medication administrations. Patient reports pain to low back is better when at rest and aggravated by movement. Original Note: New orders input by Dr. Snowden for continued low back pain, new orders for Dr. Minaya consult, IM Kenalog x1, IM solu-medrol x1, Im Toradol x1, medrol dose pack, naproxen x7 days, gabapentin x7 days, protonix x7 days (see MAR for details)for continued low back pain
[2024-05-14] MEDS: Ketorolac 60 MG/2 ML Vial IM (20:40)
[2024-05-14] MEDS: Triamcinolone Acetonide 40 MG/ML Vial 80 MG IM (20:45)
[2024-05-14] MEDS: MethylPREDNISolone 125 MG/2 ML Vial IM (20:52)
[2024-05-14 21:02] VITALS: BP 136/85; PULSE 63; RESP 16
[2024-05-14] MEDS: Pantoprazole Sodium 40 MG Tablet PO (21:58)
[2024-05-14] MEDS: Gabapentin 100 MG Capsule PO (21:58)
[2024-05-14 22:02] VITALS: BP 139/87; PULSE 60
[2024-05-15] MEDS: Enoxaparin 40 MG/0.4 ML Syringe SC (05:03)
[2024-05-15] MEDS: Baclofen 10 MG Tablet 5 MG PO ×3 (05:03→21:25)
[2024-05-15] MEDS: Acetaminophen 500 MG Tablet 1000 MG PO ×3 (05:03→21:24)
[2024-05-15 05:41] VITALS: PULSE 61; RESP 18
[2024-05-15 09:09] VITALS: BP 137/89; PULSE 79; RESP 16; TEMP 36.7
[2024-05-15] MEDS: MethylPREDNISolone DosePak 4 MG BOX PO ×4 (09:16→21:23)
[2024-05-15] MEDS: Naproxen 250 MG Tablet PO ×2 (09:17→16:46)
[2024-05-15] MEDS: Menthol/Lanolin/Calamine/Znox 113 GM Tube 1 APPLIC TOPICAL ×2 (09:18→21:26)
[2024-05-15] MEDS: Nystatin Powder 15gm Bottle 1 APPLIC TOPICAL ×2 (09:18→21:27)
[2024-05-15] MEDS: Vitamin B Comp W-C Capsule 1 CAP PO (09:18)
[2024-05-15] MEDS: Pantoprazole Sodium 40 MG Tablet PO (09:19)
[2024-05-15] MEDS: Magnesium Chloride 64 MG Delay Rel.Tablet 128 MG PO (09:19)
[2024-05-15] MEDS: Lidocaine 5% Patch 1 PATCH TOPICAL (09:19)
[2024-05-15] MEDS: Folic Acid 1 MG Tablet PO (09:19)
[2024-05-15] MEDS: amLODIPine 2.5 MG Tablet PO ×2 (09:19→21:25)
[2024-05-15 09:20] VITALS: PULSE 79
[2024-05-15] MEDS: Cyanocobalamin 500 MCG Tablet 1000 MCG PO (09:20)
[2024-05-15] MEDS: Metoprolol(XL)Succ 25 MG Tablet 12.5 MG PO ×2 (09:20→21:24)
[2024-05-15] MEDS: Cholecalciferol (VIT D3) 25 MCG TABLET (1,000 UNITS) PO (09:20)
[2024-05-15] MEDS: oxyCODONE 5 MG Tablet PO ×2 (15:06→23:18)
[2024-05-15 20:34] VITALS: BP 134/79; PULSE 68
[2024-05-15] MEDS: Gabapentin 100 MG Capsule PO (21:23)
[2024-05-15 21:24] VITALS: PULSE 68
[2024-05-16] MEDS: Acetaminophen 500 MG Tablet 1000 MG PO ×2 (05:27→17:10)
[2024-05-16] MEDS: Baclofen 10 MG Tablet 5 MG PO ×3 (05:28→21:41)
[2024-05-16] MEDS: Enoxaparin 40 MG/0.4 ML Syringe SC (05:28)
[2024-05-16 09:17] VITALS: BP 130/73; PULSE 65; RESP 16; TEMP 36.2; O2SAT 96
[2024-05-16] MEDS: MethylPREDNISolone DosePak 4 MG BOX PO ×4 (09:19→21:40)
[2024-05-16] MEDS: Menthol/Lanolin/Calamine/Znox 113 GM Tube 1 APPLIC TOPICAL ×2 (09:20→21:48)
[2024-05-16] MEDS: Nystatin Powder 15gm Bottle 1 APPLIC TOPICAL ×2 (09:20→21:45)
[2024-05-16 09:21] VITALS: PULSE 65
[2024-05-16] MEDS: Pantoprazole Sodium 40 MG Tablet PO (09:21)
[2024-05-16] MEDS: Metoprolol(XL)Succ 25 MG Tablet 12.5 MG PO ×2 (09:21→21:40)
[2024-05-16] MEDS: Folic Acid 1 MG Tablet PO (09:21)
[2024-05-16] MEDS: Lidocaine 5% Patch 1 PATCH TOPICAL (09:21)
[2024-05-16] MEDS: Naproxen 250 MG Tablet PO ×2 (09:21→17:12)
[2024-05-16] MEDS: amLODIPine 2.5 MG Tablet PO ×2 (09:21→21:39)
[2024-05-16] MEDS: Magnesium Chloride 64 MG Delay Rel.Tablet 128 MG PO (09:21)
[2024-05-16] MEDS: Vitamin B Comp W-C Capsule 1 CAP PO (09:21)
[2024-05-16] MEDS: Cholecalciferol (VIT D3) 25 MCG TABLET (1,000 UNITS) PO (09:22)
[2024-05-16] MEDS: Cyanocobalamin 500 MCG Tablet 1000 MCG PO (09:22)
[2024-05-16 21:33] VITALS: BP 141/80; PULSE 66; TEMP 36.7
[2024-05-16] MEDS: Gabapentin 100 MG Capsule PO (21:39)
[2024-05-16 21:40] VITALS: BP 141/80; PULSE 66
[2024-05-16] MEDS: oxyCODONE 5 MG Tablet PO (23:27)
[2024-05-17] MEDS: Enoxaparin 40 MG/0.4 ML Syringe SC (05:43)
[2024-05-17] MEDS: Acetaminophen 500 MG Tablet 1000 MG PO ×2 (05:43→16:37)
[2024-05-17] MEDS: Baclofen 10 MG Tablet 5 MG PO ×3 (05:43→21:36)
[2024-05-17 09:28] VITALS: BP 137/83; PULSE 81; RESP 16; TEMP 36.7; O2SAT 95
[2024-05-17] MEDS: amLODIPine 2.5 MG Tablet PO ×2 (09:31→21:37)
[2024-05-17] MEDS: Naproxen 250 MG Tablet PO ×2 (09:31→16:37)
[2024-05-17] MEDS: Vitamin B Comp W-C Capsule 1 CAP PO (09:31)
[2024-05-17] MEDS: MethylPREDNISolone DosePak 4 MG BOX PO ×4 (09:31→21:35)
[2024-05-17 09:32] VITALS: PULSE 81
[2024-05-17] MEDS: Lidocaine 5% Patch 1 PATCH TOPICAL (09:32)
[2024-05-17] MEDS: Pantoprazole Sodium 40 MG Tablet PO (09:32)
[2024-05-17] MEDS: Metoprolol(XL)Succ 25 MG Tablet 12.5 MG PO ×2 (09:32→21:35)
[2024-05-17] MEDS: Magnesium Chloride 64 MG Delay Rel.Tablet 128 MG PO (09:32)
[2024-05-17] MEDS: Folic Acid 1 MG Tablet PO (09:32)
[2024-05-17] MEDS: Cholecalciferol (VIT D3) 25 MCG TABLET (1,000 UNITS) PO (09:33)
[2024-05-17] MEDS: Nystatin Powder 15gm Bottle 1 APPLIC TOPICAL ×2 (09:33→21:38)
[2024-05-17] MEDS: Cyanocobalamin 500 MCG Tablet 1000 MCG PO (09:33)
[2024-05-17] MEDS: Menthol/Lanolin/Calamine/Znox 113 GM Tube 1 APPLIC TOPICAL ×2 (09:34→21:38)
[2024-05-17] MEDS: oxyCODONE 5 MG Tablet PO ×3 (12:21→23:24)
[2024-05-17 21:35] VITALS: BP 131/77; PULSE 60
[2024-05-17] MEDS: Gabapentin 100 MG Capsule PO (21:36)
[2024-05-18] MEDS: oxyCODONE 5 MG Tablet PO (06:16)
[2024-05-18] MEDS: Acetaminophen 500 MG Tablet 1000 MG PO ×3 (06:17→21:54)
[2024-05-18] MEDS: Enoxaparin 40 MG/0.4 ML Syringe SC (06:17)
[2024-05-18] MEDS: Baclofen 10 MG Tablet 5 MG PO ×3 (06:17→21:53)
--- NOTE | 2024-05-18 06:59 | NURSING ---
C/o 10/10 pain at times to lower back/left hip down leg, written communication left for Dr. Snowden regarding pain
[2024-05-18] MEDS: Pantoprazole Sodium 40 MG Tablet PO (07:50)
[2024-05-18] MEDS: Cholecalciferol (VIT D3) 25 MCG TABLET (1,000 UNITS) PO (07:50)
[2024-05-18] MEDS: MethylPREDNISolone DosePak 4 MG BOX PO ×3 (07:50→21:53)
[2024-05-18] MEDS: amLODIPine 2.5 MG Tablet PO ×2 (07:50→21:53)
[2024-05-18 08:11] VITALS: BP 171/96; PULSE 69
[2024-05-18] MEDS: Folic Acid 1 MG Tablet PO (08:11)
[2024-05-18] MEDS: Naproxen 250 MG Tablet PO ×2 (08:11→16:30)
[2024-05-18] MEDS: Cyanocobalamin 500 MCG Tablet 1000 MCG PO (08:11)
[2024-05-18] MEDS: Vitamin B Comp W-C Capsule 1 CAP PO (08:11)
[2024-05-18] MEDS: Metoprolol(XL)Succ 25 MG Tablet 12.5 MG PO ×2 (08:11→21:54)
[2024-05-18] MEDS: Lidocaine 5% Patch 1 PATCH TOPICAL (08:12)
[2024-05-18] MEDS: Magnesium Chloride 64 MG Delay Rel.Tablet 128 MG PO (08:12)
[2024-05-18] MEDS: Menthol/Lanolin/Calamine/Znox 113 GM Tube 1 APPLIC TOPICAL ×2 (08:16→21:50)
[2024-05-18] MEDS: Nystatin Powder 15gm Bottle 1 APPLIC TOPICAL ×2 (08:17→21:51)
[2024-05-18] MEDS: cloNIDine HCl 0.1 MG Tablet PO (08:24)
[2024-05-18 09:47] VITALS: BP 105/71; PULSE 55
[2024-05-18 11:00] VITALS: BMI 32.5
[2024-05-18] MEDS: oxyCODONE 5 MG Tablet 10 MG PO (11:02)
[2024-05-18 12:32] VITALS: BP 109/79; PULSE 56; RESP 18; TEMP 36.6; O2SAT 97
--- NOTE | 2024-05-18 13:57 | CASEMGMT ---
Addendum entered by Eryn Kennedy 05/18/24 15:59: [facility] can accept. SW updated pt. First choice remains [facility]. - SW received call from pt's sister, Sola, inquiring about referrals to both facilities. Sister she had not spoken to pt yet today. SW updated sister with conversation and referrals/outcome. Sister appreciative and will await for final DC plan. Original Note: Social Work SW spoke with pt to follow up on DC plans for 05/21. Pt stated she will need a SNF and prefers [facility] then [facility]. [facility] Will await outcomes. Eryn Kennedy, CARMEN RIBERAW
--- NOTE | 2024-05-18 14:20 | RAD_ITS ---
PROCEDURE: LUMBAR SPINE 2 OR 3 VIEWS REASON FOR EXAM: Pain TECHNIQUE: 3 view(s) of the lumbar spine COMPARISON: None. FINDINGS: Compression deformity of the L1 and L2 vertebral bodies, more prominent at L1. There is severe wedging of the T12 vertebral body there is 10 mm anterolisthesis of L5 on S1. Moderate degenerative changes in the disc spaces. Moderate facet arthropathy. RAD/Lumbar Spine 2 or 3 Views IMPRESSION: 1. Compression fractures at the L1 and L2 levels. There is severe wedging of the T12 vertebral body 2. Grade 2 anterolisthesis of L5 on S1. Reading Location: [facility]
--- NOTE | 2024-05-18 16:55 | PCM.CONS.GEN ---
Assessment & Plan Assessment/Plan (1) Radiculopathy of lumbosacral region: PLAN: -Order updated XR -Seems to be doing better she says today compared to yesterday -Consider new MRI given new radiculopathy in rle. -Seems to be doing much better overall since when I did her LESI a few weeks ago. She is much more comfortable appearing and improved on physical examination. -Follow up in 1-2 weeks after dispo from TCU -Has appointment with [facility] spine surgeon in 1 week. Encouraged her to discuss symptoms. HPI Consult Data Date of Consult: 05/18/24 HPI Narrative Reason for Consultation: Low back pain with RLE radicular pain HPI Narrative: JUWAN DAVIES, is a 78 F who presents with worsening back pain and right lower extremity pain. She states the pain was feeling better after the lesi until 1-2 days ago when she noticed worsening pain with radiation down the right lower extremity. Dr. Snowden started her on baclofen, increased oxycodone, naproxen and steroid. She is feeling somewhat better on this regimen. She has appointment with [facility] spine surgeon in 1 week. [facility] Medical History Dyskinesia of esophagus COVID-19 virus infection (04/10/21) History of non-ST elevation myocardial infarction (NSTEMI) (02/16/15) Encephalopathy Syncope and collapse Nonrheumatic aortic (valve) stenosis Essential (primary) hypertension GERARDO (obstructive sleep apnea) Osteoarthritis Myelopathy Spinal cord lesion Upper GI bleed Obesity (BMI 30-39.9) Home Medications ?Medication ?Instructions ?Recorded ?Last Taken ?Type cholecalciferol (vitamin D3) 125 5,000 unit PO DAILY Supplement 04/03/19 04/10/24 History mcg (5,000 unit) capsule folic acid 1 mg tablet 1 mg PO DAILY Supplement 04/03/19 04/10/24 History vitamin B complex 1 ea PO DAILY Supplement 04/03/19 04/10/24 History acetaminophen 500 mg tablet 1,000 mg (2 x 500 mg) PO Q6H PRN 04/26/19 04/11/24 Rx PRN Pain Score 1-01/07 magnesium 250 mg tablet 400 mg PO DAILY Supplement 01/06/23 04/10/24 History amlodipine 2.5 mg tablet 2.5 mg PO BID blood pressure #180 03/29/24 04/10/24 Rx tabs cyanocobalamin (vitamin B-12) 1,000 mcg PO DAILY supplement 04/11/24 04/10/24 History 1,000 mcg tablet,extended release tramadol 50 mg tablet 50 mg PO BID PRN PRN pain 04/11/24 04/10/24 History turmeric 400 mg capsule 400 mg PO DAILY supplement 04/11/24 04/10/24 History baclofen 10 mg tablet 5 mg (1/2 x 10 mg) PO TID PRN PRN 04/16/24 Unknown Rx MUSCLE PAIN/SPASM #0 tabs lidocaine 5 % topical patch 1 patch topical DAILY pain 04/16/24 Unknown History metoprolol succinate 25 mg 12.5 mg (1/2 x 25 mg) PO BID heart 04/16/24 Unknown Rx tablet,extended release 24 hr health #0 tabs nystatin 100,000 unit/gram topical 1 applic topical BID abdominal 04/16/24 Unknown Rx powder ([facility]) folds #0 grams oxycodone 5 mg tablet 5 mg PO Q4H PRN PRN Pain Score 04/16/24 Unknown Rx 4-10 #0 tabs sennosides 8.6 mg-docusate sodium 2 tab PO BID constipation #0 tabs 04/16/24 Unknown Rx 50 mg tablet (Stimulant Laxative Plus) Allergy/AdvReac Type Severity Reaction Status Date / Time hydrochlorothiazide Allergy Intermediate low sodium Verified 04/14/24 10:42 atorvastatin (From Lipitor) Allergy Unknown Verified 04/14/24 10:42 doxazosin (From Cardura) Allergy Other Verified 04/14/24 10:42 lisinopril Allergy Angioedema Verified 04/14/24 10:42 amlodipine (From Norvasc) AdvReac Severe Freezes up Verified 04/14/24 10:42 limbs nifedipine (From Nifedical AdvReac Severe Freezes up Verified 04/14/24 10:42 XL) limbs alendronate sodium (From AdvReac Intermediate GI upset Verified 04/14/24 10:42 Fosamax) codeine AdvReac Unknown Verified 04/14/24 10:42 ibuprofen AdvReac Other Verified 04/14/24 10:42 Family History Father Hypertension Aortic aneurysm Mother Hypertension Sister Hypertension Diabetes Surgical History Status post surgical removal of malignant neoplasm of skin History of cataract extraction Hx of LASIK Status post right foot surgery History of bunionectomy of right great toe History of tonsillectomy History of tonsillectomy History of total right knee replacement History of total left knee replacement History of arthroplasty of right knee Social History (Updated 04/16/24 @ 16:[address] Michael Snowden MD) household members: caregiver and other details: Sister. housing: [facility] pets and animals: No Smoking Status: Never smoker alcohol intake: never substance use type: does not use caffeine: No what type of physical activity do you participate in: none seatbelt use: always do you feel safe at home: Yes Physical Exam Narrative Lumbar paraspinal tenderness + bilaterally Facet load - bilaterally SLR - bilaterally No Si tenderness. Hip provocative maneuvers negative Normal strength in lower extremities. Sensation intact in lower extremities Lab / Micro Data 05/14/24 06:38 05/14/24 06:38 Imaging Radiology Impression Lumbar Spine X-Ray 05/18/24 14:20 IMPRESSION: 1. Compression fractures at the L1 and L2 levels. There is severe wedging of the T12 vertebral body 2. Grade 2 anterolisthesis of L5 on S1. Reading Location: [facility]
[2024-05-18] MEDS: Gabapentin 100 MG Capsule PO (21:52)
[2024-05-18 21:54] VITALS: BP 138/79; PULSE 64
[2024-05-19] MEDS: oxyCODONE 5 MG Tablet PO ×2 (03:19→14:23)
[2024-05-19] MEDS: Acetaminophen 500 MG Tablet 1000 MG PO ×3 (05:32→19:59)
[2024-05-19] MEDS: Enoxaparin 40 MG/0.4 ML Syringe SC (05:32)
[2024-05-19] MEDS: Baclofen 10 MG Tablet 5 MG PO ×3 (05:33→19:56)
[2024-05-19 05:42] VITALS: PULSE 58; RESP 16; O2SAT 94
[2024-05-19] MEDS: MethylPREDNISolone DosePak 4 MG BOX PO ×2 (09:47→19:51)
[2024-05-19] MEDS: Naproxen 250 MG Tablet PO ×2 (09:48→16:50)
[2024-05-19] MEDS: amLODIPine 2.5 MG Tablet PO ×3 (09:48→19:53)
[2024-05-19] MEDS: Vitamin B Comp W-C Capsule 1 CAP PO (09:49)
[2024-05-19] MEDS: Folic Acid 1 MG Tablet PO (09:49)
[2024-05-19] MEDS: Lidocaine 5% Patch 1 PATCH TOPICAL (09:49)
[2024-05-19] MEDS: Magnesium Chloride 64 MG Delay Rel.Tablet 128 MG PO (09:49)
[2024-05-19] MEDS: Cholecalciferol (VIT D3) 25 MCG TABLET (1,000 UNITS) PO (09:50)
[2024-05-19] MEDS: Cyanocobalamin 500 MCG Tablet 1000 MCG PO (09:50)
[2024-05-19] MEDS: Pantoprazole Sodium 40 MG Tablet PO (09:50)
[2024-05-19] MEDS: Nystatin Powder 15gm Bottle 1 APPLIC TOPICAL ×2 (09:51→20:07)
[2024-05-19] MEDS: Menthol/Lanolin/Calamine/Znox 113 GM Tube 1 APPLIC TOPICAL ×2 (09:51→20:06)
[2024-05-19 09:54] VITALS: BP 121/82; PULSE 78
[2024-05-19] MEDS: Metoprolol(XL)Succ 25 MG Tablet 12.5 MG PO ×2 (09:54→19:59)
[2024-05-19 10:04] VITALS: BP 121/82; PULSE 78; RESP 18; O2SAT 94
[2024-05-19 16:00] VITALS: TEMP 36.2
--- NOTE | 2024-05-19 16:09 | CASEMGMT ---
Addendum entered by Eryn Kennedy 05/19/24 16:28: PASRR completed. Notified W and CC. Original Note: Social Work SW followed up with [facility] on outcome. They can accept but can offer the current bed situation: semi private room LTC at lower rate, then move to private TCC room at higher rate when available about 3/3. - SW spoke with pt to update on outcome and information. Inquired about preference. Pt prefers [facility]. SW inquired about transport - w/c vs car. Pt prefers w/c and understands it will be OOP. SW to coordinate. Completed BIMS () and PHQ-2 () for MDS assessment. Plan: DC 05/21 to [facility], intermediate, private pay, part B therapies CARMEN Myles
[2024-05-19 19:59] VITALS: BP 115/74; PULSE 68
--- NOTE | 2024-05-19 19:59 | DS.PCM_ITS ---
Providers Date of Admission: 04/16/24 Primary Care Physician: Dr. Michael Snowden MD Consultations 05/17/24 08:00 Consult: Pain Management Routine Consulting Provider: Gabo Minaya Reason for Consult: Lumbar pain worsening EMERGENT Consult: No MD Notified: Yes Date Notified: 05/17/24 Time Notified: 11:28 Method of Notification: Answering Service Reason For Visit: LUMBAR COMPRESSION FRACTURE W PAIN Diagnosis Discharge Diagnosis (1) Radiculopathy of lumbosacral region: Status: Acute Code(s): M54.17 - Radiculopathy, lumbosacral region Plan 78 year old female with below past medical history hospitalized for intractable low back pain 2/2 L1 compression fracture, complicated by lumbar spinal stenosis, postmenopausal bleeding, admitted to TCU with debility, here for rehabilitation, strengthening, prior to discharge home with sister/caregiver. * Debility - PT/OT. * Pain - Tylenol 1000mg q8, Tramadol 50mg q6 prn pain (1-5), Oxycodone 5mg q4 prn pain (6-10), Lidoderm 1 patch td daily. * Bowel - senna/colace 2 tablets bid prn, Magnesium citrate 300mL po daily prn. * Adult immunization - Administer pneumonia vaccine, covid vaccine, flu vaccine as appropriate. * DVT prophylaxis - Lovenox 40mg sc daily. * Hypertension - Metoprolol succinate 12.5mg bid, Amlodipine 2.5mg bid. * Muscle spasm - Baclofen 5mg tid. * Vitamin D deficiency - D3 25mcg daily. * Vitamin B12 deficiency - B12 1000mcg daily. * Folate deficiency - Folic acid 1mg daily. * Hypomagnesemia - Magnesium chloride 128mg daily. * Tinea Corporis - Nystatin powder topical bid. * Leg cramps - Vitamin B complex 1 capsule daily. * Skin irritation - Calmoseptine topical bid. * Postmenopausal bleeding - pelvic ultrasound showed heterogeneous thickening, follow up [employer] outpatient. Medications at Discharge Home Medications folic acid 1 mg tablet 1 mg PO DAILY Supplement 04/03/19 amlodipine 2.5 mg tablet 2.5 mg PO BID blood pressure #180 tabs 03/29/24 lidocaine 5 % topical patch 1 patch topical DAILY pain 04/16/24 metoprolol succinate 25 mg tablet,extended release 24 hr 12.5 mg (1/2 x 25 mg) PO BID heart health #0 tabs 04/16/24 acetaminophen 500 mg tablet 1,000 mg (2 x 500 mg) PO Q8 #0 tabs 05/19/24 baclofen 10 mg tablet 5 mg (1/2 x 10 mg) PO TID #0 tabs 05/19/24 cholecalciferol (vitamin D3) 25 mcg (1,000 unit) tablet 25 mcg PO DAILY #0 tabs 05/19/24 cyanocobalamin (vitamin B-12) 500 mcg tablet 1,000 mcg (2 x 500 mcg) PO DAILY #0 tabs 05/19/24 magnesium chloride 64 mg (magnesium chloride) tablet,delayed release (Mag 64) 128 mg (2 x 64 mg) PO DAILY #0 tabs 05/19/24 magnesium citrate 300 ml PO DAILY PRN Constipation #0 mL 05/19/24 menthol 0.44 %-zinc oxide 20.6 % topical ointment (Calmoseptine) 1 applic topical BID #0 grams 05/19/24 nystatin 100,000 unit/gram topical powder (Nyamyc) 1 applic topical BID #0 grams 05/19/24 oxycodone 5 mg tablet 5 mg PO Q4H PRN PRN Pain Score 6-10 Or Pre Pt/Ot 3 days #18 tabs 05/19/24 sennosides 8.6 mg-docusate sodium 50 mg tablet (Stimulant Laxative Plus) 2 tab PO BID PRN Constipation #0 tabs 05/19/24 tramadol 50 mg tablet 50 mg PO Q6H PRN PRN Pain Score 1-5 Or Pre Pt/Ot 3 days #12 tabs 05/19/24 vitamin B complex-vitamin C-folic acid 400 mcg tablet 1 tab PO DAILY #0 tabs 05/19/24 Hospital Course Operations None Procedures - (Epidural steroid injection. ) Summary of Care Provided Minutes Spent on Discharge: 35 Hospital Course: 78 year old female with below past medical history hospitalized for intractable low back pain 2/2 L1 compression fracture, complicated by lumbar spinal stenosis, postmenopausal bleeding, admitted to TCU with debility, here for rehabilitation, strengthening, prior to discharge home with sister/caregiver. 04/14/2024 Dr. Minaya performed L1-L2 lumbar epidural steroid injection. Plan: [place] 05/21/24 to [facility], intermediate, private pay, part B therapies Physical Exam Const alert General Appearance: cooperative HEENT normocephalic Eyes PERRL and EOMs intact bilaterally Neck supple, no JVD and no carotid bruits Resp normal respiratory effort, normal air movement and clear to auscultation bilaterally Cardio regular rate and regular rhythm GI normal to inspection, nondistended, normoactive bowel sounds, non-tender and non-distended Extremity normal capillary refill General Extremity: Negative for edema Skin no rashes or lesions noted General Skin Exam: no breakdown Psych affect normal Appearance: appropriate Weight / BMI Weight Weight: 70.715 kg Body Mass Index (BMI) 32.5 ABG / Lab / Microbiology Data 05/14/24 06:38 05/14/24 06:38 Microbiology: Microbiology 05/19/24 05:30 Nasal Secretion SARS-CoV-2 Antigen (Rapid) - Final 05/12/24 05:28 Nasal Secretion SARS-CoV-2 Antigen (Rapid) - Final D/C Instructions Discharge Diet: No restrictions Discharge Activity: Return to Normal Activity, May Shower and Use Walker Weight Bearing Status: Weight bearing as tolerated Call your doctor if you observe: Fever of 101 or Higher, Inability to urinate, Inability to have a bowel movement, Shortness of breath, Dizziness, Fainting spells, Swelling in the ankles, Chest pain and Uncontrolled pain DC O2, CPAP, BIPAP Needs Home O2 Discharge instructions: No Additional Instructions: Plan: DC 05/21 to [facility], private pay, part B therapies Please Follow Up With: [facility] spine surgery When: 05/26/2024 (Do not miss) Meaningful Use Info Meaningful Use Meaningful Use Diagnoses (Choose all that apply): None applicable Ischemic Stroke Statin Dosing Therapy Reference: STATIN DOSE THERAPY REFERENCE: * Patients > 75 years receive moderate or high dose statin therapy. * Patients 75 years or YOUNGER should receive HIGH intensity statin dose unless contraindicated. You will be required to document reason for non-treatment if statin daily dose does not meet guidelines. HIGH DOSE STATIN THERAPY DAILY Atorvastatin > than or = to 40 mg Rosuvastatin > than or = to 20 mg Amlodipine + Atorvastatin > than or = to 2.5/40 mg Ezetimibe + Simvastatin 10/80 mg Simvastatin 80mg Discharge Plan Admission Admit Date/Time: 04/16/24 15:42 Primary Reason for Your Visit: Debility. Attending Provider: Michael Snowden Chi Primary Care Provider: Michael Snowden Chi Consulting Providers: Gabo Minaya Instructions Additional Instructions / Restrictions: Plan: [place] 05/21 to [facility], [facility], part B therapies Discharge Orders/Prescriptions Prescriptions: New sennosides-docusate sodium [Stimulant Laxative Plus] 8.6-50 mg Tablet 2 tab PO BID PRN (Reason: Constipation) Qty: 0 0RF tramadol 50 mg Tablet 50 mg PO Q6H PRN PRN (Reason: Pain Score 1-5 Or Pre Pt/Ot) 3 Days Qty: 12 0RF acetaminophen 500 mg Tablet 1,000 mg PO Q8 Qty: 0 0RF cyanocobalamin (vitamin B-12) 500 mcg Tablet 1,000 mcg PO DAILY Qty: 0 0RF baclofen 10 mg Tablet 5 mg PO TID Qty: 0 0RF magnesium citrate Solution 300 ml PO DAILY PRN (Reason: Constipation) Qty: 0 0RF nystatin [Nyamyc] 100,000 unit/gram Powder 1 applic topical BID Qty: 0 0RF Protocol: *Topical Application Instructions APPLICATION INSTRUCTIONS: apply to abdominal folds oxycodone 5 mg Tablet 5 mg PO Q4H PRN PRN (Reason: Pain Score 6-10 Or Pre Pt/Ot) 3 Days Qty: 18 0RF cholecalciferol (vitamin D3) 25 mcg (1,000 unit) Tablet 25 mcg PO DAILY Qty: 0 0RF B complex-vitamin C-folic acid 400 mcg Tablet 1 tab PO DAILY Qty: 0 0RF magnesium chloride [Mag 64] 64 mg Tablet,Delayed Release (Dr/Ec) 128 mg PO DAILY Qty: 0 0RF menthol-zinc oxide [Calmoseptine] 0.44-20.6 % Ointment 1 applic topical BID Qty: 0 0RF Protocol: *Topical Application Instructions APPLICATION INSTRUCTIONS: bilat buttocks Continued folic acid 1 MG tablet 1 mg PO DAILY metoprolol succinate 25 mg Tablet Extended Release 24 Hr 12.5 mg PO BID Qty: 0 0RF lidocaine 5 % Adhesive Patch,Medicated 1 patch topical DAILY Protocol: *Topical Application Instructions APPLICATION INSTRUCTIONS: Lumbar spine Rx Instructions: apply to lumbar spine amlodipine 2.5 mg tablet 2.5 mg PO BID Qty: 180 3RF Discontinued vitamin B complex 1 EACH tablet 1 ea PO DAILY cholecalciferol (vitamin D3) 5,000 UNIT capsule 5,000 unit PO DAILY magnesium 250 mg tablet 400 mg PO DAILY acetaminophen 500 MG tablet 1,000 mg PO Q6H PRN PRN (Reason: Pain Score 1-10/10) 0RF cyanocobalamin (vitamin B-12) 1,000 mcg tablet extended release 1,000 mcg PO DAILY tramadol 50 mg tablet 50 mg PO BID PRN PRN (Reason: pain) turmeric 400 mg capsule 400 mg PO DAILY sennosides-docusate sodium [Stimulant Laxative Plus] 8.6-50 mg Tablet 2 tab PO BID Qty: 0 0RF baclofen 10 mg Tablet 5 mg PO TID PRN PRN (Reason: MUSCLE PAIN/SPASM) Qty: 0 0RF nystatin [Nyamyc] 100,000 unit/gram Powder 1 applic topical BID Qty: 0 0RF Protocol: *Topical Application Instructions APPLICATION INSTRUCTIONS: abdominal folds oxycodone 5 mg Tablet 5 mg PO Q4H PRN PRN (Reason: Pain Score 4-10) Qty: 0 0RF Referrals / Follow Up: Gabo Minaya MD [Med Staff - Active Staff] - (F/U in 2 weeks after discharge from [facility]) Michael Snowden Chi, MD [Primary Care Provider] - Disposition Disposition (needs filled in before D/C Order can be placed): NonSkilled NH/Intermed Care
[2024-05-19] MEDS: Gabapentin 100 MG Capsule PO (20:04)
--- NOTE | 2024-05-19 20:10 | TREXTCAR_ITS ---
Diet Diet Order/Speech Therapy: 04/16/24 16:15 Diet: Cardiac - Heart Healthy Food consistency:: Regular Liquid Consistency:: Regular/Thin Diet Comments: prune juice on all meal trays. NO Apple Juice Routine Orders/Code Status Code Status: Full Code DC O2, CPAP, BIPAP needs Home O2 Discharge instructions: No Wound(s) 2 Slits to right groin: Wound Type: Skin Tear Dressing Change: powder Open areas left abdominal fold: Wound Type: Skin Tear Dressing Change: nystatin Lower lip: Wound Type: Abrasion Therapies Weight Bearing: Weight bearing as tolerated Extremity Affected:: Bilateral Lower Physical Therapy: Eval and Treat Occupational Therapy: Eval and Treat Problem/Diagnosis (1) Radiculopathy of lumbosacral region: Status: Acute Code(s): M54.17 - Radiculopathy, lumbosacral region Plan 78 year old female with below past medical history hospitalized for intractable low back pain 2/2 L1 compression fracture, complicated by lumbar spinal stenosis, postmenopausal bleeding, admitted to TCU with debility, here for rehabilitation, strengthening, prior to discharge home with sister/caregiver. * Debility - PT/OT. * Pain - Tylenol 1000mg q8, Tramadol 50mg q6 prn pain (1-5), Oxycodone 5mg q4 prn pain (6-10), Lidoderm 1 patch td daily. * Bowel - senna/colace 2 tablets bid prn, Magnesium citrate 300mL po daily prn. * Adult immunization - Administer pneumonia vaccine, covid vaccine, flu vaccine as appropriate. * DVT prophylaxis - Lovenox 40mg sc daily. * Hypertension - Metoprolol succinate 12.5mg bid, Amlodipine 2.5mg bid. * Muscle spasm - Baclofen 5mg tid. * Vitamin D deficiency - D3 25mcg daily. * Vitamin B12 deficiency - B12 1000mcg daily. * Folate deficiency - Folic acid 1mg daily. * Hypomagnesemia - Magnesium chloride 128mg daily. * Tinea Corporis - Nystatin powder topical bid. * Leg cramps - Vitamin B complex 1 capsule daily. * Skin irritation - Calmoseptine topical bid. * Postmenopausal bleeding - pelvic ultrasound showed heterogeneous thickening, follow up [employer] outpatient. Allergies/Procedures Done in Hospital Allergies hydrochlorothiazide Allergy (Intermediate, Verified 04/14/24 10:42) low sodium atorvastatin (From Lipitor) Allergy (Verified 04/14/24 10:42) Unknown doxazosin (From Cardura) Allergy (Verified 04/14/24 10:42) Other VASOVAGAL lisinopril Allergy (Verified 04/14/24 10:42) Angioedema amlodipine (From Norvasc) Adverse Reaction (Severe, Verified 04/14/24 10:42) Freezes up limbs nifedipine (From Nifedical XL) Adverse Reaction (Severe, Verified 04/14/24 10:42) Freezes up limbs alendronate sodium (From Fosamax) Adverse Reaction (Intermediate, Verified 04/14/24 10:42) GI upset codeine Adverse Reaction (Verified 04/14/24 10:42) Unknown ibuprofen Adverse Reaction (Verified 04/14/24 10:42) Other Procedures: None Type of Care/Length of Stay Estimated LOS: More Than 30 Days Type of Care Needed: Intermediate Rehab Potential: Fair Prognosis: Fair Additional Orders/Day of Discharge Additional Orders: part B therapies Day of Discharge: 05/21/24 Dietary and Speech Recommendations Dietitian Recommendations/Changes: Continue cardiac diet as ordered with prune juice w/ meal trays per resident request. Follow Up Care Please Follow Up With: [facility] main spine surgery Discharge Plan Admission Admit Date/Time: 04/16/24 15:42 Primary Reason for Your Visit: Debility. Attending Provider: Michael Snowden Chi Primary Care Provider: Michael Snowdne Chi Consulting Providers: Gabo Minaya Instructions Additional Instructions / Restrictions: Plan: [place] 05/21 to [facility], intermediate, private pay, part B therapies Discharge Orders/Prescriptions Prescriptions: New sennosides-docusate sodium [Stimulant Laxative Plus] 8.6-50 mg Tablet 2 tab PO BID PRN (Reason: Constipation) Qty: 0 0RF tramadol 50 mg Tablet 50 mg PO Q6H PRN PRN (Reason: Pain Score 1-5 Or Pre Pt/Ot) 3 Days Qty: 12 0RF acetaminophen 500 mg Tablet 1,000 mg PO Q8 Qty: 0 0RF cyanocobalamin (vitamin B-12) 500 mcg Tablet 1,000 mcg PO DAILY Qty: 0 0RF baclofen 10 mg Tablet 5 mg PO TID Qty: 0 0RF magnesium citrate Solution 300 ml PO DAILY PRN (Reason: Constipation) Qty: 0 0RF nystatin [Nyamyc] 100,000 unit/gram Powder 1 applic topical BID Qty: 0 0RF Protocol: *Topical Application Instructions APPLICATION INSTRUCTIONS: apply to abdominal folds oxycodone 5 mg Tablet 5 mg PO Q4H PRN PRN (Reason: Pain Score 6-10 Or Pre Pt/Ot) 3 Days Qty: 18 0RF cholecalciferol (vitamin D3) 25 mcg (1,000 unit) Tablet 25 mcg PO DAILY Qty: 0 0RF B complex-vitamin C-folic acid 400 mcg Tablet 1 tab PO DAILY Qty: 0 0RF magnesium chloride [Mag 64] 64 mg Tablet,Delayed Release (Dr/Ec) 128 mg PO DAILY Qty: 0 0RF menthol-zinc oxide [Calmoseptine] 0.44-20.6 % Ointment 1 applic topical BID Qty: 0 0RF Protocol: *Topical Application Instructions APPLICATION INSTRUCTIONS: bilat buttocks Continued folic acid 1 MG tablet 1 mg PO DAILY metoprolol succinate 25 mg Tablet Extended Release 24 Hr 12.5 mg PO BID Qty: 0 0RF lidocaine 5 % Adhesive Patch,Medicated 1 patch topical DAILY Protocol: *Topical Application Instructions APPLICATION INSTRUCTIONS: Lumbar spine Rx Instructions: apply to lumbar spine amlodipine 2.5 mg tablet 2.5 mg PO BID Qty: 180 3RF Discontinued vitamin B complex 1 EACH tablet 1 ea PO DAILY cholecalciferol (vitamin D3) 5,000 UNIT capsule 5,000 unit PO DAILY magnesium 250 mg tablet 400 mg PO DAILY acetaminophen 500 MG tablet 1,000 mg PO Q6H PRN PRN (Reason: Pain Score 1-10/10) 0RF cyanocobalamin (vitamin B-12) 1,000 mcg tablet extended release 1,000 mcg PO DAILY tramadol 50 mg tablet 50 mg PO BID PRN PRN (Reason: pain) turmeric 400 mg capsule 400 mg PO DAILY sennosides-docusate sodium [Stimulant Laxative Plus] 8.6-50 mg Tablet 2 tab PO BID Qty: 0 0RF baclofen 10 mg Tablet 5 mg PO TID PRN PRN (Reason: MUSCLE PAIN/SPASM) Qty: 0 0RF nystatin [Nyamyc] 100,000 unit/gram Powder 1 applic topical BID Qty: 0 0RF Protocol: *Topical Application Instructions APPLICATION INSTRUCTIONS: abdominal folds oxycodone 5 mg Tablet 5 mg PO Q4H PRN PRN (Reason: Pain Score 4-10) Qty: 0 0RF Referrals / Follow Up: Gabo Minaya MD [Med Staff - Active Staff] - (F/U in 2 weeks after discharge from TCU) Michael Snowden Chi, MD [Primary Care Provider] - Disposition Disposition (needs filled in before D/C Order can be placed): NonSkilled NH/Intermed Care
[2024-05-20] MEDS: oxyCODONE 5 MG Tablet PO (03:41)
[2024-05-20] MEDS: Acetaminophen 500 MG Tablet 1000 MG PO ×3 (05:40→20:16)
[2024-05-20] MEDS: Baclofen 10 MG Tablet 5 MG PO ×3 (05:41→20:16)
[2024-05-20] MEDS: Enoxaparin 40 MG/0.4 ML Syringe SC (05:41)
[2024-05-20] MEDS: Cyanocobalamin 500 MCG Tablet 1000 MCG PO (08:31)
[2024-05-20] MEDS: MethylPREDNISolone DosePak 4 MG BOX PO (08:31)
[2024-05-20] MEDS: Naproxen 250 MG Tablet PO ×2 (08:31→16:29)
[2024-05-20] MEDS: Pantoprazole Sodium 40 MG Tablet PO (08:32)
[2024-05-20] MEDS: Vitamin B Comp W-C Capsule 1 CAP PO (08:32)
[2024-05-20] MEDS: Magnesium Chloride 64 MG Delay Rel.Tablet 128 MG PO (08:32)
[2024-05-20] MEDS: Folic Acid 1 MG Tablet PO (08:32)
[2024-05-20 08:33] VITALS: BP 143/94; PULSE 82
[2024-05-20] MEDS: Cholecalciferol (VIT D3) 25 MCG TABLET (1,000 UNITS) PO (08:33)
[2024-05-20] MEDS: Metoprolol(XL)Succ 25 MG Tablet 12.5 MG PO ×2 (08:33→20:18)
[2024-05-20] MEDS: Menthol/Lanolin/Calamine/Znox 113 GM Tube 1 APPLIC TOPICAL ×2 (08:34→20:22)
[2024-05-20] MEDS: Nystatin Powder 15gm Bottle 1 APPLIC TOPICAL ×2 (08:35→20:23)
[2024-05-20 08:38] VITALS: BP 143/94; PULSE 82; RESP 18; O2SAT 97
[2024-05-20] MEDS: Lidocaine 5% Patch 1 PATCH TOPICAL (09:36)
--- NOTE | 2024-05-20 14:36 | MDS.RN ---
Pain assessment for MDS complete.
[2024-05-20 14:44] VITALS: TEMP 36.4
[2024-05-20] MEDS: Gabapentin 100 MG Capsule PO (20:15)
[2024-05-20] MEDS: amLODIPine 2.5 MG Tablet PO (20:17)
[2024-05-20 20:18] VITALS: BP 124/76; PULSE 63
[2024-05-21] MEDS: Acetaminophen 500 MG Tablet 1000 MG PO (05:05)
[2024-05-21] MEDS: Baclofen 10 MG Tablet 5 MG PO (05:05)
[2024-05-21] MEDS: Enoxaparin 40 MG/0.4 ML Syringe SC (05:06)
[2024-05-21 05:52] LABS: Absolute Lymphocyte Count 1.68 X10^3/uL (0.83-4.51); Absolute Neutrophil Count 6.3 X10^3/uL (2.0-7.7); Basophil# 0.01 X10^3/uL; Basophil% 0.1 % (0-1); Eosinophil# 0.04 X10^3/uL; Eosinophils% 0.4 % (0-5); Hematocrit 34.3 % (37-47); Lymphocyte # 1.68 X10^3/ul (0.83-4.51); Lymphocyte % 18.3 % (19-41); Mean Corp Hgb Conc 32.1 g/dL (32-36); Mean Corpuscular Hgb 31.7 pg (27.0-32.0); Mean Corpuscular Volume 98.8 fL (81-99); Mean Platelet Vol. 8.9 fl (6.2-12.0); Monocyte# 0.88 X10^3/uL; Monocyte% 9.6 % (0-10); NRBC Flagged by Analyzer 0 % (0-5); Neutrophil # 6.32 X10^3/uL (2.7-7.7); Platelet Count 280 K/mm3 (150-450); RBC Distribution Width CV 14.3 % (11.6-14.6); Red Blood Count 3.47 M/mm3 (4.2-5.4); White Blood Count 9.2 K/mm3 (4.4-11.0)
[2024-05-21 08:02] LABS: Anion Gap 9 (5-15); BUN 32 mg/dL (7-18); BUN/Creat Ratio 39.8 RATIO (10-20); Calcium,Total 8.9 mg/dL (8.5-10.1); Chloride 109 mmol/L (98-107); EST Glomerular Filtration Rate 73 mL/min (>60); Est Glom Filt Rate - Afr Amer 89 mL/min (>60); Estimated Creatinine Clearance 50.86 ml/min; Glucose 85 mg/dL (74-106); Potassium 5.1 mmol/L (3.5-5.1); Sodium Level 140 mmol/L (136-145)
[2024-05-21 08:40] VITALS: BP 144/87; PULSE 71; RESP 17; TEMP 36.7; O2SAT 95
[2024-05-21] MEDS: Naproxen 250 MG Tablet PO (08:43)
[2024-05-21] MEDS: Vitamin B Comp W-C Capsule 1 CAP PO (08:43)
[2024-05-21] MEDS: Menthol/Lanolin/Calamine/Znox 113 GM Tube 1 APPLIC TOPICAL (08:43)
[2024-05-21] MEDS: Folic Acid 1 MG Tablet PO (08:44)
[2024-05-21] MEDS: Lidocaine 5% Patch 1 PATCH TOPICAL (08:44)
[2024-05-21] MEDS: Magnesium Chloride 64 MG Delay Rel.Tablet 128 MG PO (08:44)
[2024-05-21 08:45] VITALS: PULSE 71
[2024-05-21] MEDS: Pantoprazole Sodium 40 MG Tablet PO (08:45)
[2024-05-21] MEDS: Cholecalciferol (VIT D3) 25 MCG TABLET (1,000 UNITS) PO (08:45)
[2024-05-21] MEDS: amLODIPine 2.5 MG Tablet PO (08:45)
[2024-05-21] MEDS: Cyanocobalamin 500 MCG Tablet 1000 MCG PO (08:45)
[2024-05-21] MEDS: Metoprolol(XL)Succ 25 MG Tablet 12.5 MG PO (08:45)
[2024-05-21] MEDS: Nystatin Powder 15gm Bottle 1 APPLIC TOPICAL (08:46)
--- NOTE | 2024-05-21 11:22 | NURSING ---
Report called to ED at [facility].
== END 2024-05-21 11:45 | disposition intermediate care facility (04) | DRG 561 ==
PROVIDERS: Admitting Provider Family Medicine Geriatric Medicine; PCP Family Medicine Geriatric Medicine; Referring Provider Family Medicine Geriatric Medicine; Visit Provider Family Medicine Geriatric Medicine
DX: M84.68XD Pathological fracture in other disease, other site, subsequent encounter for fracture with routine healing (principal); B35.4 Tinea corporis; D86.9 Sarcoidosis, unspecified; M48.061 Spinal stenosis, lumbar region without neurogenic claudication; E53.8 Deficiency of other specified B group vitamins; I10 Essential (primary) hypertension; M54.16 Radiculopathy, lumbar region; E55.9 Vitamin D deficiency, unspecified; G47.33 Obstructive sleep apnea (adult) (pediatric); M54.17 Radiculopathy, lumbosacral region; N95.0 Postmenopausal bleeding; M85.9 Disorder of bone density and structure, unspecified; Z79.899 Other long term (current) drug therapy
CPT/HCPCS: 36415; 72100; 80048; 85025; 87811; 97110; 97116; 97161; 97166; 97530; 97535; 97802; A4216

== ENCOUNTER → 2024-06-01 | Outpatient (REF) | payer MEDICARE, SELFPAY ==
[2024-06-01 08:48] LABS: Absolute Lymphocyte Count 1.46 X10^3/uL (0.83-4.51); Absolute Neutrophil Count 5.2 X10^3/uL (2.0-7.7); Basophil# 0.05 X10^3/uL; Basophil% 0.7 % (0-1); Eosinophil# 0.12 X10^3/uL; Eosinophils% 1.6 % (0-5); Hematocrit 36.4 % (37-47); Hemoglobin 11.7 g/dL (12.0-15.0); Lymphocyte # 1.46 X10^3/ul (0.83-4.51); Lymphocyte % 19.4 % (19-41); Mean Corp Hgb Conc 32.1 g/dL (32-36); Mean Corpuscular Hgb 32.3 pg (27.0-32.0); Mean Corpuscular Volume 100.6 fL (81-99); Mean Platelet Vol. 9.8 fl (6.2-12.0); Monocyte# 0.64 X10^3/uL; Monocyte% 8.5 % (0-10); NRBC Flagged by Analyzer 0 % (0-5); Neutrophil # 5.21 X10^3/uL (2.7-7.7); Neutrophil % 69.4 % (47-70); Platelet Count 234 K/mm3 (150-450); RBC Distribution Width CV 14.1 % (11.6-14.6); RBC Distribution Width SD 51.8 fl (35.1-43.9); Red Blood Count 3.62 M/mm3 (4.2-5.4); White Blood Count 7.5 K/mm3 (4.4-11.0)
[2024-06-01 09:29] LABS: Anion Gap 11 (5-15); BUN 22 mg/dL (4-19); BUN/Creat Ratio 30.2 RATIO (10-20); Carbon Dioxide 20.7 mmol/L (21.0-32.0); Chloride 110 mmol/L (98-108); Creatinine, Serum 0.72 mg/dL (0.70-1.20); EST Glomerular Filtration Rate 86 (>60); Glucose 94 mg/dL (70-99); Potassium 4.4 mmol/L (3.3-5.1); Sodium Level 142 mmol/L (133-145)
== END ==
LOC: OLS.WHLTCC 04:00
PROVIDERS: PCP Family Medicine Geriatric Medicine; Referring Provider Internal Medicine; Visit Provider Internal Medicine
DX: I10 Essential (primary) hypertension (principal)
CPT/HCPCS: 36415; 80048; 85025

== ENCOUNTER → 2024-06-08 | Outpatient (REF) | payer MEDICARE, SELFPAY ==
[2024-06-08 07:17] LABS: Absolute Lymphocyte Count 1.41 X10^3/uL (0.83-4.51); Absolute Neutrophil Count 3.7 X10^3/uL (2.0-7.7); Basophil# 0.02 X10^3/uL; Basophil% 0.3 % (0-1); Eosinophil# 0.19 X10^3/uL; Eosinophils% 3.2 % (0-5); Hematocrit 35.9 % (37-47); Hemoglobin 11.5 g/dL (12.0-15.0); Lymphocyte # 1.41 X10^3/ul (0.83-4.51); Lymphocyte % 23.7 % (19-41); Mean Corpuscular Hgb 32.1 pg (27.0-32.0); Mean Corpuscular Volume 100.3 fL (81-99); Mean Platelet Vol. 9.4 fl (6.2-12.0); Monocyte# 0.56 X10^3/uL; Monocyte% 9.4 % (0-10); NRBC Flagged by Analyzer 0 % (0-5); Neutrophil # 3.74 X10^3/uL (2.7-7.7); Neutrophil % 63.1 % (47-70); Platelet Count 244 K/mm3 (150-450); RBC Distribution Width CV 14.5 % (11.6-14.6); RBC Distribution Width SD 53.2 fl (35.1-43.9); Red Blood Count 3.58 M/mm3 (4.2-5.4); White Blood Count 5.9 K/mm3 (4.4-11.0)
[2024-06-08 08:10] LABS: Anion Gap 10 (5-15); BUN 20 mg/dL (4-19); BUN/Creat Ratio 29.4 RATIO (10-20); Calcium,Total 8.9 mg/dL (7.6-11.0); Carbon Dioxide 21.5 mmol/L (21.0-32.0); Chloride 110 mmol/L (98-108); Creatinine, Serum 0.68 mg/dL (0.70-1.20); EST Glomerular Filtration Rate 89 (>60); Glucose 85 mg/dL (70-99); Potassium 4.3 mmol/L (3.3-5.1); Sodium Level 141 mmol/L (133-145)
== END ==
LOC: OLS.WHLTCC 04:00
PROVIDERS: PCP Family Medicine Geriatric Medicine; Referring Provider Internal Medicine; Visit Provider Internal Medicine
DX: I10 Essential (primary) hypertension (principal); S32.010D Wedge compression fracture of first lumbar vertebra, subsequent encounter for fracture with routine healing; M54.16 Radiculopathy, lumbar region
CPT/HCPCS: 36415; 80048; 85025

== ENCOUNTER → 2024-06-15 | Outpatient (REF) | payer MEDICARE, SELFPAY ==
[2024-06-15 08:09] LABS: Absolute Lymphocyte Count 1.51 X10^3/uL (0.83-4.51); Absolute Neutrophil Count 2.2 X10^3/uL (2.0-7.7); Basophil# 0.02 X10^3/uL; Basophil% 0.5 % (0-1); Eosinophil# 0.09 X10^3/uL; Eosinophils% 2.1 % (0-5); Hematocrit 39.1 % (37-47); Hemoglobin 12.4 g/dL (12.0-15.0); Lymphocyte # 1.51 X10^3/ul (0.83-4.51); Lymphocyte % 34.6 % (19-41); Mean Corp Hgb Conc 31.7 g/dL (32-36); Mean Corpuscular Volume 100.8 fL (81-99); Mean Platelet Vol. 9.6 fl (6.2-12.0); Monocyte% 11.5 % (0-10); NRBC Flagged by Analyzer 0 % (0-5); Neutrophil # 2.21 X10^3/uL (2.7-7.7); Neutrophil % 50.6 % (47-70); Platelet Count 215 K/mm3 (150-450); RBC Distribution Width CV 14.2 % (11.6-14.6); RBC Distribution Width SD 52.7 fl (35.1-43.9); Red Blood Count 3.88 M/mm3 (4.2-5.4); White Blood Count 4.4 K/mm3 (4.4-11.0)
[2024-06-15 08:38] LABS: Anion Gap 11 (5-15); BUN 15 mg/dL (4-19); BUN/Creat Ratio 22.9 RATIO (10-20); Calcium,Total 8.7 mg/dL (7.6-11.0); Carbon Dioxide 20.2 mmol/L (21.0-32.0); Chloride 111 mmol/L (98-108); Creatinine, Serum 0.65 mg/dL (0.70-1.20); EST Glomerular Filtration Rate 90 (>60); Glucose 83 mg/dL (70-99); Potassium 4.7 mmol/L (3.3-5.1); Sodium Level 142 mmol/L (133-145)
== END ==
LOC: OLS.WHLTCC 05:00
PROVIDERS: PCP Family Medicine Geriatric Medicine; Visit Provider Internal Medicine
DX: I10 Essential (primary) hypertension (principal); S32.010D Wedge compression fracture of first lumbar vertebra, subsequent encounter for fracture with routine healing
CPT/HCPCS: 36415; 80048; 85025

== ENCOUNTER → 2024-06-22 | Outpatient (REF) | payer MEDICARE, SELFPAY ==
[2024-06-22 09:14] LABS: Absolute Lymphocyte Count 1.15 X10^3/uL (0.83-4.51); Absolute Neutrophil Count 4.9 X10^3/uL (2.0-7.7); Basophil# 0.04 X10^3/uL; Basophil% 0.6 % (0-1); Eosinophil# 0.16 X10^3/uL; Eosinophils% 2.3 % (0-5); Hematocrit 35.7 % (37-47); Hemoglobin 11.6 g/dL (12.0-15.0); Lymphocyte # 1.15 X10^3/ul (0.83-4.51); Lymphocyte % 16.2 % (19-41); Mean Corp Hgb Conc 32.5 g/dL (32-36); Mean Corpuscular Hgb 32.6 pg (27.0-32.0); Mean Corpuscular Volume 100.3 fL (81-99); Mean Platelet Vol. 9.9 fl (6.2-12.0); Monocyte# 0.78 X10^3/uL; NRBC Flagged by Analyzer 0 % (0-5); Neutrophil # 4.89 X10^3/uL (2.7-7.7); Neutrophil % 68.8 % (47-70); Platelet Count 235 K/mm3 (150-450); RBC Distribution Width CV 13.9 % (11.6-14.6); RBC Distribution Width SD 51.1 fl (35.1-43.9); Red Blood Count 3.56 M/mm3 (4.2-5.4); White Blood Count 7.1 K/mm3 (4.4-11.0)
[2024-06-22 11:58] LABS: Anion Gap 11 (5-15); BUN 15 mg/dL (4-19); BUN/Creat Ratio 18.7 RATIO (10-20); Calcium,Total 8.6 mg/dL (7.6-11.0); Carbon Dioxide 19.5 mmol/L (21.0-32.0); Chloride 107 mmol/L (98-108); Creatinine, Serum 0.78 mg/dL (0.70-1.20); EST Glomerular Filtration Rate 78 (>60); Glucose 91 mg/dL (70-99); Potassium 4.4 mmol/L (3.3-5.1); Sodium Level 138 mmol/L (133-145)
== END ==
LOC: OLS.WHLTCC 05:00
PROVIDERS: PCP Family Medicine Geriatric Medicine; Visit Provider Nurse Practitioner Adult Health
DX: I10 Essential (primary) hypertension (principal); S32.010D Wedge compression fracture of first lumbar vertebra, subsequent encounter for fracture with routine healing; M54.16 Radiculopathy, lumbar region
CPT/HCPCS: 36415; 80048; 85025

== ENCOUNTER → 2024-06-29 | Outpatient (REF) | payer MEDICARE, SELFPAY ==
[2024-06-29 08:59] LABS: Absolute Lymphocyte Count 1.28 X10^3/uL (0.83-4.51); Basophil# 0.06 X10^3/uL; Basophil% 0.9 % (0-1); Eosinophil# 0.16 X10^3/uL; Eosinophils% 2.5 % (0-5); Hematocrit 35.7 % (37-47); Hemoglobin 11.5 g/dL (12.0-15.0); Lymphocyte # 1.28 X10^3/ul (0.83-4.51); Lymphocyte % 20.1 % (19-41); Mean Corp Hgb Conc 32.2 g/dL (32-36); Mean Corpuscular Hgb 32.1 pg (27.0-32.0); Mean Corpuscular Volume 99.7 fL (81-99); Mean Platelet Vol. 9.5 fl (6.2-12.0); Monocyte# 0.78 X10^3/uL; Monocyte% 12.3 % (0-10); NRBC Flagged by Analyzer 0 % (0-5); Neutrophil # 4.01 X10^3/uL (2.7-7.7); Neutrophil % 63.1 % (47-70); Platelet Count 307 K/mm3 (150-450); RBC Distribution Width SD 51.9 fl (35.1-43.9); Red Blood Count 3.58 M/mm3 (4.2-5.4); White Blood Count 6.4 K/mm3 (4.4-11.0)
[2024-06-29 09:14] LABS: Anion Gap 10 (5-15); BUN 12 mg/dL (4-19); BUN/Creat Ratio 18.5 RATIO (10-20); Carbon Dioxide 21.5 mmol/L (21.0-32.0); Chloride 109 mmol/L (98-108); Creatinine, Serum 0.65 mg/dL (0.70-1.20); EST Glomerular Filtration Rate 90 (>60); Glucose 84 mg/dL (70-99); Potassium 4.4 mmol/L (3.3-5.1); Sodium Level 140 mmol/L (133-145)
== END ==
LOC: OLS.WHLTCC 05:00
PROVIDERS: PCP Family Medicine Geriatric Medicine; Visit Provider Nurse Practitioner Adult Health
DX: I10 Essential (primary) hypertension (principal)
CPT/HCPCS: 36415; 80048; 85025

== ENCOUNTER → 2024-07-06 | Outpatient (REF) | payer MEDICARE, SELFPAY ==
[2024-07-06 08:38] LABS: Absolute Lymphocyte Count 1.68 X10^3/uL (0.83-4.51); Basophil# 0.06 X10^3/uL; Basophil% 0.9 % (0-1); Eosinophil# 0.17 X10^3/uL; Eosinophils% 2.5 % (0-5); Hematocrit 34.4 % (37-47); Hemoglobin 11.1 g/dL (12.0-15.0); Lymphocyte # 1.68 X10^3/ul (0.83-4.51); Lymphocyte % 25.1 % (19-41); Mean Corp Hgb Conc 32.3 g/dL (32-36); Mean Corpuscular Hgb 33.4 pg (27.0-32.0); Mean Corpuscular Volume 103.6 fL (81-99); Mean Platelet Vol. 9.4 fl (6.2-12.0); Monocyte# 0.72 X10^3/uL; Monocyte% 10.8 % (0-10); NRBC Flagged by Analyzer 0 % (0-5); Neutrophil # 3.97 X10^3/uL (2.7-7.7); Neutrophil % 59.4 % (47-70); Platelet Count 299 K/mm3 (150-450); RBC Distribution Width CV 14.3 % (11.6-14.6); RBC Distribution Width SD 53.8 fl (35.1-43.9); Red Blood Count 3.32 M/mm3 (4.2-5.4); White Blood Count 6.7 K/mm3 (4.4-11.0)
[2024-07-06 08:55] LABS: Anion Gap 10 (5-15); BUN 18 mg/dL (4-19); BUN/Creat Ratio 23.7 RATIO (10-20); Calcium,Total 8.8 mg/dL (7.6-11.0); Carbon Dioxide 22.4 mmol/L (21.0-32.0); Chloride 108 mmol/L (98-108); Creatinine, Serum 0.76 mg/dL (0.70-1.20); EST Glomerular Filtration Rate 80 (>60); Glucose 90 mg/dL (70-99); Potassium 4.3 mmol/L (3.3-5.1); Sodium Level 140 mmol/L (133-145)
== END ==
LOC: OLS.WHLTCC 05:00
PROVIDERS: PCP Family Medicine Geriatric Medicine; Visit Provider Internal Medicine
DX: I10 Essential (primary) hypertension (principal)
CPT/HCPCS: 36415; 80048; 85025

== ENCOUNTER → 2024-07-13 | Outpatient (REF) | payer MEDICARE, SELFPAY ==
[2024-07-13 08:19] LABS: Absolute Lymphocyte Count 1.48 X10^3/uL (0.83-4.51); Absolute Neutrophil Count 3.7 X10^3/uL (2.0-7.7); Basophil# 0.05 X10^3/uL; Basophil% 0.8 % (0-1); Eosinophil# 0.17 X10^3/uL; Eosinophils% 2.9 % (0-5); Hematocrit 32.8 % (37-47); Hemoglobin 10.8 g/dL (12.0-15.0); Lymphocyte # 1.48 X10^3/ul (0.83-4.51); Lymphocyte % 24.8 % (19-41); Mean Corp Hgb Conc 32.9 g/dL (32-36); Mean Corpuscular Hgb 33.6 pg (27.0-32.0); Mean Corpuscular Volume 102.2 fL (81-99); Mean Platelet Vol. 9.5 fl (6.2-12.0); Monocyte# 0.54 X10^3/uL; Monocyte% 9.1 % (0-10); NRBC Flagged by Analyzer 0 % (0-5); Neutrophil # 3.68 X10^3/uL (2.7-7.7); Neutrophil % 61.7 % (47-70); Platelet Count 267 K/mm3 (150-450); RBC Distribution Width CV 14.2 % (11.6-14.6); RBC Distribution Width SD 52.8 fl (35.1-43.9); Red Blood Count 3.21 M/mm3 (4.2-5.4)
[2024-07-13 08:39] LABS: Anion Gap 9 (5-15); BUN 12 mg/dL (4-19); BUN/Creat Ratio 19.7 RATIO (10-20); Calcium,Total 8.8 mg/dL (7.6-11.0); Carbon Dioxide 24.1 mmol/L (21.0-32.0); Chloride 108 mmol/L (98-108); Creatinine, Serum 0.59 mg/dL (0.70-1.20); EST Glomerular Filtration Rate 92 (>60); Glucose 84 mg/dL (70-99); Potassium 4.1 mmol/L (3.3-5.1); Sodium Level 141 mmol/L (133-145)
== END ==
LOC: OLS.WHLTCC 05:00
PROVIDERS: PCP Family Medicine Geriatric Medicine; Visit Provider Internal Medicine
DX: I10 Essential (primary) hypertension (principal)
CPT/HCPCS: 36415; 80048; 85025

== ENCOUNTER → 2024-07-20 | Outpatient (REF) | payer MEDICARE, SELFPAY ==
[2024-07-20 06:57] LABS: Absolute Lymphocyte Count 1.71 X10^3/uL (0.83-4.51); Absolute Neutrophil Count 3.6 X10^3/uL (2.0-7.7); Basophil# 0.04 X10^3/uL; Basophil% 0.7 % (0-1); Eosinophil# 0.13 X10^3/uL; Eosinophils% 2.1 % (0-5); Hematocrit 33.5 % (37-47); Hemoglobin 11.3 g/dL (12.0-15.0); Lymphocyte # 1.71 X10^3/ul (0.83-4.51); Mean Corp Hgb Conc 33.7 g/dL (32-36); Mean Corpuscular Hgb 33.7 pg (27.0-32.0); Mean Platelet Vol. 9.4 fl (6.2-12.0); Monocyte# 0.62 X10^3/uL; Monocyte% 10.2 % (0-10); NRBC Flagged by Analyzer 0 % (0-5); Neutrophil # 3.57 X10^3/uL (2.7-7.7); Neutrophil % 58.5 % (47-70); Platelet Count 276 K/mm3 (150-450); RBC Distribution Width CV 13.7 % (11.6-14.6); Red Blood Count 3.35 M/mm3 (4.2-5.4); White Blood Count 6.1 K/mm3 (4.4-11.0)
[2024-07-20 07:10] LABS: Anion Gap 10 (5-15); BUN 9 mg/dL (4-19); BUN/Creat Ratio 16.1 RATIO (10-20); Calcium,Total 9.1 mg/dL (7.6-11.0); Carbon Dioxide 23.8 mmol/L (21.0-32.0); Chloride 104 mmol/L (98-108); Creatinine, Serum 0.59 mg/dL (0.70-1.20); EST Glomerular Filtration Rate 92 (>60); Glucose 85 mg/dL (70-99); Potassium 4.1 mmol/L (3.3-5.1); Sodium Level 138 mmol/L (133-145)
== END ==
LOC: OLS.WHLTCC 04:00
PROVIDERS: PCP Family Medicine Geriatric Medicine; Referring Provider Internal Medicine; Visit Provider Internal Medicine
DX: I10 Essential (primary) hypertension (principal)
CPT/HCPCS: 36415; 80048; 85025

== ENCOUNTER → 2024-07-27 | Outpatient (REF) | payer MEDICARE, SELFPAY ==
[2024-07-27 08:34] LABS: Absolute Lymphocyte Count 1.57 X10^3/uL (0.83-4.51); Absolute Neutrophil Count 3.5 X10^3/uL (2.0-7.7); Basophil# 0.04 X10^3/uL; Basophil% 0.7 % (0-1); Eosinophil# 0.14 X10^3/uL; Eosinophils% 2.4 % (0-5); Hematocrit 33.1 % (37-47); Lymphocyte # 1.57 X10^3/ul (0.83-4.51); Lymphocyte % 26.8 % (19-41); Mean Corp Hgb Conc 33.2 g/dL (32-36); Mean Corpuscular Hgb 34.4 pg (27.0-32.0); Mean Corpuscular Volume 103.4 fL (81-99); Mean Platelet Vol. 9.2 fl (6.2-12.0); Monocyte# 0.61 X10^3/uL; Monocyte% 10.4 % (0-10); NRBC Flagged by Analyzer 0 % (0-5); Neutrophil # 3.47 X10^3/uL (2.7-7.7); Neutrophil % 59.2 % (47-70); Platelet Count 282 K/mm3 (150-450); RBC Distribution Width CV 14.1 % (11.6-14.6); RBC Distribution Width SD 53.5 fl (35.1-43.9); White Blood Count 5.9 K/mm3 (4.4-11.0)
[2024-07-27 08:59] LABS: Anion Gap 9 (5-15); BUN 12 mg/dL (4-19); BUN/Creat Ratio 19.1 RATIO (10-20); Calcium,Total 8.9 mg/dL (7.6-11.0); Carbon Dioxide 24.8 mmol/L (21.0-32.0); Chloride 106 mmol/L (98-108); Creatinine, Serum 0.65 mg/dL (0.70-1.20); EST Glomerular Filtration Rate 90 (>60); Glucose 90 mg/dL (70-99); Potassium 4.3 mmol/L (3.3-5.1); Sodium Level 140 mmol/L (133-145)
== END ==
LOC: OLS.WHLTCC 05:00
PROVIDERS: PCP Family Medicine Geriatric Medicine; Visit Provider Nurse Practitioner Adult Health
DX: I10 Essential (primary) hypertension (principal)
CPT/HCPCS: 36415; 80048; 85025

== ENCOUNTER → 2024-08-03 | Outpatient (REF) | payer MEDICARE, SELFPAY ==
[2024-08-03 09:01] LABS: Absolute Lymphocyte Count 1.37 X10^3/uL (0.83-4.51); Absolute Neutrophil Count 3.6 X10^3/uL (2.0-7.7); Basophil# 0.05 X10^3/uL; Basophil% 0.9 % (0-1); Eosinophil# 0.15 X10^3/uL; Eosinophils% 2.6 % (0-5); Hematocrit 33.6 % (37-47); Lymphocyte # 1.37 X10^3/ul (0.83-4.51); Lymphocyte % 23.5 % (19-41); Mean Corp Hgb Conc 32.7 g/dL (32-36); Mean Corpuscular Volume 103.7 fL (81-99); Mean Platelet Vol. 9.5 fl (6.2-12.0); Monocyte% 10.3 % (0-10); NRBC Flagged by Analyzer 0 % (0-5); Neutrophil # 3.63 X10^3/uL (2.7-7.7); Neutrophil % 62.4 % (47-70); Platelet Count 243 K/mm3 (150-450); RBC Distribution Width CV 13.9 % (11.6-14.6); RBC Distribution Width SD 52.4 fl (35.1-43.9); Red Blood Count 3.24 M/mm3 (4.2-5.4); White Blood Count 5.8 K/mm3 (4.4-11.0)
[2024-08-03 09:39] LABS: AST(SGOT) 21 U/L (<=31); Alanine Aminotransfer ALT/SGPT 15 U/L (<=34); Albumin, Serum 3.2 g/dL (3.4-4.8); Alkaline Phosphatase 85 U/L (35-104); Anion Gap 8 (5-15); BUN 13 mg/dL (4-19); BUN/Creat Ratio 18.8 RATIO (10-20); Calcium,Total 8.8 mg/dL (7.6-11.0); Carbon Dioxide 24.9 mmol/L (21.0-32.0); Chloride 107 mmol/L (98-108); Creatinine, Serum 0.71 mg/dL (0.70-1.20); EST Glomerular Filtration Rate 87 (>60); Glucose 89 mg/dL (70-99); Magnesium 2.3 mg/dL (1.5-2.2); Potassium 4.4 mmol/L (3.3-5.1); Protein, Total 6.2 g/dL (5.9-8.4); Sodium Level 140 mmol/L (133-145); Total Bilirubin 0.17 mg/dL (0.00-1.30); Vitamin B12 1509 pg/mL (180-914); Vitamin D,25 Hydroxy 42.7 ng/mL (30-100)
== END ==
LOC: OLS.WHLTCC 05:00
PROVIDERS: PCP Family Medicine Geriatric Medicine; Visit Provider Nurse Practitioner Adult Health
DX: I10 Essential (primary) hypertension (principal); M54.50 Low back pain, unspecified; E55.9 Vitamin D deficiency, unspecified; D52.9 Folate deficiency anemia, unspecified; D51.9 Vitamin B12 deficiency anemia, unspecified; K59.00 Constipation, unspecified
CPT/HCPCS: 36415; 80048; 80076; 82306; 82607; 82746; 83735; 85025

== ENCOUNTER → 2024-08-10 | Outpatient (REF) | payer MEDICARE, SELFPAY ==
[2024-08-10 07:58] LABS: Absolute Lymphocyte Count 1.61 X10^3/uL (0.83-4.51); Absolute Neutrophil Count 3.4 X10^3/uL (2.0-7.7); Basophil# 0.05 X10^3/uL; Basophil% 0.9 % (0-1); Eosinophil# 0.17 X10^3/uL; Hematocrit 35.1 % (37-47); Hemoglobin 11.3 g/dL (12.0-15.0); Lymphocyte # 1.61 X10^3/ul (0.83-4.51); Lymphocyte % 28.1 % (19-41); Mean Corp Hgb Conc 32.2 g/dL (32-36); Mean Corpuscular Hgb 33.2 pg (27.0-32.0); Mean Corpuscular Volume 103.2 fL (81-99); Mean Platelet Vol. 9.4 fl (6.2-12.0); Monocyte# 0.53 X10^3/uL; Monocyte% 9.3 % (0-10); NRBC Flagged by Analyzer 0 % (0-5); Neutrophil # 3.35 X10^3/uL (2.7-7.7); Neutrophil % 58.5 % (47-70); Platelet Count 233 K/mm3 (150-450); RBC Distribution Width CV 13.6 % (11.6-14.6); RBC Distribution Width SD 51.5 fl (35.1-43.9); White Blood Count 5.7 K/mm3 (4.4-11.0)
[2024-08-10 08:10] LABS: Anion Gap 10 (5-15); BUN 11 mg/dL (4-19); BUN/Creat Ratio 19.5 RATIO (10-20); Carbon Dioxide 24.9 mmol/L (21.0-32.0); Chloride 106 mmol/L (98-108); Creatinine, Serum 0.59 mg/dL (0.70-1.20); EST Glomerular Filtration Rate 92 (>60); Glucose 80 mg/dL (70-99); Sodium Level 141 mmol/L (133-145)
== END ==
LOC: OLS.WHLTCC 05:00
PROVIDERS: PCP Family Medicine Geriatric Medicine; Visit Provider Internal Medicine
DX: I10 Essential (primary) hypertension (principal)
CPT/HCPCS: 36415; 80048; 85025

== ENCOUNTER → 2024-08-17 | Outpatient (REF) | payer MEDICARE, SELFPAY ==
[2024-08-17 08:27] LABS: Absolute Lymphocyte Count 1.53 X10^3/uL (0.83-4.51); Absolute Neutrophil Count 3.5 X10^3/uL (2.0-7.7); Basophil# 0.05 X10^3/uL; Basophil% 0.9 % (0-1); Eosinophil# 0.12 X10^3/uL; Eosinophils% 2.1 % (0-5); Hematocrit 34.6 % (37-47); Hemoglobin 11.2 g/dL (12.0-15.0); Lymphocyte # 1.53 X10^3/ul (0.83-4.51); Lymphocyte % 26.2 % (19-41); Mean Corp Hgb Conc 32.4 g/dL (32-36); Mean Corpuscular Hgb 33.2 pg (27.0-32.0); Mean Corpuscular Volume 102.7 fL (81-99); Mean Platelet Vol. 9.8 fl (6.2-12.0); Monocyte# 0.57 X10^3/uL; Monocyte% 9.8 % (0-10); NRBC Flagged by Analyzer 0 % (0-5); Neutrophil # 3.54 X10^3/uL (2.7-7.7); Neutrophil % 60.5 % (47-70); Platelet Count 235 K/mm3 (150-450); RBC Distribution Width CV 13.4 % (11.6-14.6); RBC Distribution Width SD 50.2 fl (35.1-43.9); Red Blood Count 3.37 M/mm3 (4.2-5.4); White Blood Count 5.8 K/mm3 (4.4-11.0)
[2024-08-17 09:05] LABS: Anion Gap 10 (5-15); BUN 14 mg/dL (4-19); BUN/Creat Ratio 20.9 RATIO (10-20); Calcium,Total 9.1 mg/dL (7.6-11.0); Carbon Dioxide 26.8 mmol/L (21.0-32.0); Chloride 106 mmol/L (98-108); Creatinine, Serum 0.66 mg/dL (0.70-1.20); EST Glomerular Filtration Rate 90 (>60); Glucose 84 mg/dL (70-99); Potassium 3.9 mmol/L (3.3-5.1); Sodium Level 143 mmol/L (133-145)
== END ==
LOC: OLS.WHLTCC 05:00
PROVIDERS: PCP Family Medicine Geriatric Medicine; Visit Provider Internal Medicine
DX: I10 Essential (primary) hypertension (principal)
CPT/HCPCS: 36415; 80048; 85025

== ENCOUNTER → 2024-08-24 05:00 | Outpatient (REF) | payer MEDICARE, SELFPAY ==
[2024-08-24 07:27] LABS: Absolute Lymphocyte Count 1.65 X10^3/uL (0.83-4.51); Absolute Neutrophil Count 3.9 X10^3/uL (2.0-7.7); Basophil# 0.04 X10^3/uL; Basophil% 0.6 % (0-1); Eosinophil# 0.16 X10^3/uL; Eosinophils% 2.5 % (0-5); Hematocrit 36.3 % (37-47); Hemoglobin 11.7 g/dL (12.0-15.0); Lymphocyte # 1.65 X10^3/ul (0.83-4.51); Lymphocyte % 25.9 % (19-41); Mean Corp Hgb Conc 32.2 g/dL (32-36); Mean Corpuscular Hgb 32.9 pg (27.0-32.0); Mean Platelet Vol. 9.4 fl (6.2-12.0); Monocyte# 0.64 X10^3/uL; NRBC Flagged by Analyzer 0 % (0-5); Neutrophil # 3.87 X10^3/uL (2.7-7.7); Neutrophil % 60.7 % (47-70); Platelet Count 227 K/mm3 (150-450); RBC Distribution Width CV 13.1 % (11.6-14.6); RBC Distribution Width SD 49.5 fl (35.1-43.9); Red Blood Count 3.56 M/mm3 (4.2-5.4); White Blood Count 6.4 K/mm3 (4.4-11.0)
[2024-08-24 07:45] LABS: Anion Gap 9 (5-15); BUN 15 mg/dL (4-19); Carbon Dioxide 26.4 mmol/L (21.0-32.0); Chloride 107 mmol/L (98-108); Creatinine, Serum 0.76 mg/dL (0.70-1.20); EST Glomerular Filtration Rate 80 (>60); Glucose 88 mg/dL (70-99); Potassium 4.1 mmol/L (3.3-5.1); Sodium Level 142 mmol/L (133-145)
== END ==
LOC: OLS.WHLTCC 05:00
PROVIDERS: PCP Family Medicine Geriatric Medicine; Visit Provider Internal Medicine
DX: I10 Essential (primary) hypertension (principal)
CPT/HCPCS: 36415; 80048; 85025

== ENCOUNTER → 2024-08-31 05:00 | Outpatient (REF) | payer MEDICARE, SELFPAY ==
[2024-08-31 08:27] LABS: Absolute Lymphocyte Count 1.73 X10^3/uL (0.83-4.51); Absolute Neutrophil Count 3.8 X10^3/uL (2.0-7.7); Basophil# 0.04 X10^3/uL; Basophil% 0.6 % (0-1); Eosinophil# 0.15 X10^3/uL; Eosinophils% 2.4 % (0-5); Hematocrit 34.9 % (37-47); Lymphocyte # 1.73 X10^3/ul (0.83-4.51); Lymphocyte % 27.5 % (19-41); Mean Corp Hgb Conc 31.5 g/dL (32-36); Mean Corpuscular Hgb 32.1 pg (27.0-32.0); Mean Corpuscular Volume 101.7 fL (81-99); Mean Platelet Vol. 9.8 fl (6.2-12.0); Monocyte# 0.59 X10^3/uL; Monocyte% 9.4 % (0-10); NRBC Flagged by Analyzer 0 % (0-5); Neutrophil # 3.76 X10^3/uL (2.7-7.7); Neutrophil % 59.6 % (47-70); Platelet Count 208 K/mm3 (150-450); RBC Distribution Width CV 13.3 % (11.6-14.6); Red Blood Count 3.43 M/mm3 (4.2-5.4); White Blood Count 6.3 K/mm3 (4.4-11.0)
[2024-08-31 08:56] LABS: Anion Gap 10 (5-15); BUN 13 mg/dL (4-19); BUN/Creat Ratio 20.3 RATIO (10-20); Calcium,Total 8.8 mg/dL (7.6-11.0); Carbon Dioxide 24.3 mmol/L (21.0-32.0); Chloride 106 mmol/L (98-108); Creatinine, Serum 0.63 mg/dL (0.70-1.20); EST Glomerular Filtration Rate 91 (>60); Glucose 81 mg/dL (70-99); Potassium 4.2 mmol/L (3.3-5.1); Sodium Level 141 mmol/L (133-145)
== END ==
LOC: OLS.WHLTCC 05:00
PROVIDERS: PCP Family Medicine Geriatric Medicine; Visit Provider Nurse Practitioner Adult Health
DX: I10 Essential (primary) hypertension (principal); S32.010D Wedge compression fracture of first lumbar vertebra, subsequent encounter for fracture with routine healing; M54.16 Radiculopathy, lumbar region; M48.061 Spinal stenosis, lumbar region without neurogenic claudication
CPT/HCPCS: 36415; 80048; 85025

== ENCOUNTER → 2024-09-07 05:00 | Outpatient (REF) | payer MEDICARE, SELFPAY ==
--- OUTSIDE RECORDS SUMMARY | 2024-09-07 04:29 | XMS RPT_ITS | CCD ---
Author Organization [facility] Care Team Providers Care Paint Department Supervisor Name Role Phone Riddhi Espinosa Unavailable Divina RN, Lyric Williamson Unavailable Unavailable Riddhi Espinosa Unavailable Sp, Dr. Michael Bates Primary Care Provider [phone] Sp, Dr. Michael Bates Referring Provider Frances, Dr. Queen Attending Provider Sp, Dr. Michael Bates Primary Care Provider Sp, Dr. Michael Bates Referring Provider Dr. Bret Daniels Attending Provider Sp, Dr. Michael Bates Primary Care Provider Sp, Dr. Michael Bates Referring Provider Friend, Dr. Quevedo Attending Provider Fast DO, Noreen A Unavailable Dana Weldon Unavailable Unavailable Steam Clothes Press Operator, System Unavailable Unavailable Sp, Dr. Michael Bates Primary Care Provider Sp, Dr. Michael Bates Referring Provider Friend, Dr. Quevedo Attending Provider [phone] Sp, Dr. Michael Bates Primary Care Provider Sp, Dr. Michael Bates Referring Provider Sujata GRIFFIN, PA Ashley Galvan Attending Provider Friend, Dr. Quevedo Attending Provider Sp, Dr. Michael Bates Primary Care Provider Sp, Dr. Michael Bates Referring Provider Sujata GRIFFIN, PA Ashley Galvan Attending Provider Sp, Dr. Michael Bates Primary Care Provider Sp, Dr. Michael Bates Referring Provider Sujata GRIFFIN PA Ashley Galvan Attending Provider Dr. Bret Daniels Attending Provider Sp OROZCO, Dr. Michael Bates Primary Care Provider Sp OROZCO, Dr. Michael Bates Attending Provider Sp OROZCO, Dr. Michael Bates Referring Provider Zachery STAPLES, Dr. Hedrick Attending Provider Zachery STAPLES, Dr. Hedrick Emergency Provider Leela STAPLES, Dr. Charles Emergency Provider Roland OROZCO, Dr. Ballesteros Admit Provider Roland OROZCO, Dr. Ballesteros Attending Provider Roland OROZCO, Dr. Ballesteros Other Provider Mio OROZCO, Dr. Reyez Other Provider Mary OROZCO, Dr. Gabo Jacobo Attending Provider Mary OROZCO, Dr. Gabo Jacobo Other Provider Tara OROZCO, Dr. Griggs Attending Provider Tara OROZCO, Dr. Griggs Referring Provider Sp OROZCO, Dr. Michael Bates Admit Provider Rei OROZCO, Dr. Ayon Other Provider Noelle TIDWELL-Audra Rodriguez Attending Provider Beatriz OROZCO, Dr. Montejo Attending Provider Nikia Henderson MD Attending Provider UnavailNikia Richard MD Referring Provider Unavaila ble Tickton DRIVER EXAMINER-C, Audra Attending Provider Sp OROZCO, Dr. Michael Bates Primary Care Provider [phone] pS OROZCO, Dr. Michael Bates Attending Provider Sp OROZCO, Dr. Michael Bates Referring Provider Zachery STAPLES, Dr. Hedrick Attending Provider Zachery STAPLES, Dr. Hedrick Emergency Provider Leela STAPLES, Dr. Charles Emergency Provider Roland OROZCO, Dr. Ballesteros Admit Provider Roland OROZCO, Dr. Ballesteros Attending Provider Roland OROZCO, Dr. Ballesteros Other Provider Mio OROZCO, Dr. Reyez Other Provider Mary OROZCO, Dr. Gabo Jacobo Attending Provider Mary OROZCO, Dr. Gabo Jacobo Other Provider Tara OROZCO, Dr. Griggs Attending Provider Tara OROZCO, Dr. Griggs Referring Provider Sp OROZCO, Dr. Michael Bates Admit Provider Rei OROZCO, Dr. Ayon Other Provider Tickdiego DRIVER EXAMINER-C, Audra Attending Provider Beatriz OROZCO, Dr. Montejo Attending Provider Beatriz OROZCO, Nikia Attending Provider Unavaila navin Henderson MD, Nikia Referring Provider Unavaila ble Noelle DRIVER EXAMINER-C, Audra Attending Provider Michael Snowden Chi Primary Care Provider [phone] Sp OROZCO, Dr. Michael Bates Primary Care Provider Sp OROZCO, Dr. Michael Bates Attending Provider Sp OROZCO, Dr. Michael Bates Referring Provider SETH CHOWDARY Attending Unavailable JOVANNI MATTHEW Referring Unavailable SP, MICHAEL CHI Primary Care Unavailable MILLIE PETTY Referring Unavailable SP, MICHAEL CHI Primary Care Unavailable AJAY GRANT Attending Unavailable JOVANNI MATHTEW Referring Unavailable SP, MICHAEL CHI Primary Care Unavailable JELANDONICKJOVANNI Williamson Attending Unavailable SP, MICHAEL CHI Primary Care Unavailable SELF Referring Unavailable Sp , Dr. Michael Bates Primary Care Provider Oleghe OLS, Efewongbe Referring Unavailabl e Oleghe OLS, Efewongbe Attending Unavailabl e Sp, Michael Chi Primary Care Unavailable Oleghe OLS, Efewongbe Attending Unavailabl e Sp, Michael Chi Primary Care Unavailable Sp, Michael Chi Primary Care Unavailable Tickton CONCEPCION Audra Attending Unavailable Sp, Michael Chi Primary Care Unavailable [place]ickton CONCEPCION Audra Attending Unavailable Sp, Michael Chi Primary Care Unavailable Oleghe OLS, Efewongbe Attending Unavailabl e Oleghe OLS, Efewongbe Attending Unavailabl e Sp, Michael Chi Primary Care Unavailable Sp, Michael Chi Primary Care Unavailable Oleghe OLS, Efewongbe Attending Unavailabl e Oleghe OLS, Efewongbe Attending Unavailabl e Sp, Michael Chi Primary Care Unavailable Oleghe OLS, Efewongbe Referring Unavailabl e Sp, Michael Chi Primary Care Unavailable Sp, Michael Chi Attending Unavailable Sp, Michael Chi Referring Unavailable Sp, Michael Chi Primary Care Unavailable Fahad Martinez Attending Unavailable Sp, Michael Chi Primary Care Unavailable Audra García Attending Unavailable Floridalma Bingham Attending Unavailable Sp, Michael Chi Primary Care Unavailable Sp, Michael Chi Primary Care Unavailable Sp, Michael Chi Attending Unavailable Sp, Michael Chi Referring Unavailable Sp, Michael Chi Primary Care Unavailable Sp, Michael Chi Attending Unavailable Sp, Michael Chi Referring Unavailable Sp, Michael Chi Primary Care Unavailable Sp, Michael Chi Referring Unavailable Sp, Michael Chi Attending Unavailable Sp, Michael Chi Primary Care Unavailable Sp, Michael Chi Referring Unavailable Sp, Michael Chi Attending Unavailable Oleghe OLS, Efewongbe Attending Unavailabl e Sp, Michael Chi Primary Care Unavailable Oleghe OLS, Efewongbe Referring Unavailabl Gaetano Lobo Referring Unavailable Sp, Michael Chi Primary Care Unavailable Gaetano Cleary Attending Unavailable Sp, Michael Chi Primary Care Unavailable Sp, Michael Chi Attending Unavailable Gabo Hernandez Attending Unavailable Basali, Ayman Consulting Unavailable Sp, Michael Chi Primary Care Unavailable Watkins, Lesli Admitting Unavailable Watkins, Lesli Consulting Unavailable Prayson, Gabo Consulting Unavailable Sp, Michael Chi Admitting Unavailable Sp, Michael Chi Referring Unavailable Sp, Michael Chi Attending Unavailable Sp, Michael Chi Primary Care Unavailable Sp, Michael Chi Primary Care Unavailable Nikia Henderson Attending Unavailable Sp, Michael Chi Primary Care Unavailable Audra García Attending Unavailable Sp, Michael Chi Primary Care Unavailable Yasmin Su Attending Unavailable Sp, Michael Chi Consulting Unavailable Sp, Michael Chi Referring Unavailable Chris Watkinsge Attending Unavailable Watkins, Lesli Admitting Unavailable Sp, Michael Chi Primary Care Unavailable Watkins, Lesli Consulting Unavailable KotsGabo rothman F Attending Unavailable Basali, Ayman Consulting Unavailable Watkins, Lesli Admitting Unavailable Sp, Michael Chi Primary Care Unavailable Watkins, Lesli Consulting Unavailable Kotsonis Gabo F Consulting Unavailable Basali, Ayman Consulting Unavailable KotsoniRodrigo willisGabo F Attending Unavailable Kotsonialba Gabo F Consulting Unavailable Sp, Michael Chi Primary Care Unavailable Sae Brandt Attending Unavailable Sp, Michael Chi Referring Unavailable Nagajothi, Nagapradee Referring Unavailabl e Sp, Michael Chi Primary Care Unavailable NagajoManuel melendezapradee Attending Unavailabl e Yasmin Su Attending Unavailable Sp, Michael Chi Primary Care Unavailable Sp, Michael Chi Consulting Unavailable Sp, Michael Chi Referring Unavailable Sp, Michael Chi Primary Care Unavailable Audra Drake NP Attending Unavailable Sp, Michael Chi Primary Care Unavailable Sekou Brooks Attending Unavailable Sp, Michael Chi Referring Unavailable Sp, Michael Chi Primary Care Unavailable Ashley Vilchis Attending Unavail able Sp, Michael Chi Referring Unavailable Sp, Michael Chi Primary Care Unavailable Bret Daniels Attending Unavailable Sp, Michael Chi Primary Care Unavailable Sp, Michael Chi Referring Unavailable Tami Caldwell Attending Unavailable Sp, Michael Chi Primary Care Unavailable Audra García Attending Unavailable CristobalghNikia Virgen Attending Unavailabl e Sp, Michael Chi Primary Care Unavailable Nikia Flores Attending Unavailabl e Sp, Michael Chi Primary Care Unavailable Audra Drake NP Attending Unavailable Sp, Michael Chi Primary Care Unavailable Sp, Michael Chi Primary Care Unavailable Sp, Michael Chi Referring Unavailable Sp, Michael Chi Attending Unavailable Allergies Allergy Classification Reported Allergen(s) Allergy Type Date of Onset Reaction(s) Facility (3 sources) alendronate drug allergy 015 GI upset [facility] Work Phone: (3 sources) amLODIPine drug allergy 016 freezes up limbs [facility] Work Phone: (3 sources) atorvastatin drug allergy 016 muscle weakness [facility] Work Phone: (20 sources) codeine; Translations: [CODEINE] drug allergy 009 Intolerance [facility] Work Phone: (20 sources) ibuprofen; Translations: [IBUPROFEN] drug allergy 005 GI Upset [facility] Work Phone: (20 sources) lisinopril; Translations: [LISINOPRIL] drug allergy 012 Swelling, Anaphylaxis [facility] Work Phone: (3 sources) NIFEdipine drug allergy 016 freezes up limbs [facility] Work Phone: (3 sources) HCTZ drug allergy 015 low sodium [facility] Work Phone: (6 sources) NKDA drug allergy 013 [facility] Work Phone: (20 sources) Alendronate; Translations: [ALENDRONATE SODIUM] Drug Allergy 015 GI Upset, Other: See Comments [facility] (19 sources) amLODIPine Drug Allergy 022 Freezes up limbs [facility] (20 sources) atorvastatin; Translations: [ATORVASTATIN] Drug Allergy 016 Intolerance [facility] (20 sources) Doxazosin; Translations: [DOXAZOSIN] Drug Allergy 022 Other: See Comments [facility] Comment on above: VASOVAGAL (20 sources) hydroCHLOROthiazide; Translations: [HYDROCHLOROTHIAZIDE] Drug Allergy Other: See Comments [facility] (20 sources) NIFEdipine; Translations: [NIFEDIPINE] Drug Allergy Other: See Comments [facility] (1 source) HCTA Propensity to adverse reactions Low sodium [facility] Work Phone: (1 source) Ibuprofen Drug Allergy [facility] Work Phone: Comment on above: abd pain (1 source) Codeine/Codeine Derivatives; Translations: [Codeine/Codeine Derivatives] Allergy to substance (finding) [facility]; [facility] Work Phone: Comment on above: Headache (1 source) Alendronate; Translations: [ALENDRONATE] Drug Allergy 015 [facility] Repository (1 source) Alendronate Drug Allergy [facility] Repository (1 source) amLODIPine Drug Allergy [facility] Repository (1 source) atorvastatin Drug Allergy [facility] Repository (1 source) Doxazosin Drug Allergy [facility] Repository (1 source) hydroCHLOROthiazide Drug Allergy [facility] Repository (1 source) NIFEdipine Drug Allergy [facility] Repository Medications Current Medications Medication Drug Class(es) Dates Sig (Normalized) Sig (Original) B Complex-Vitamin C-Folic Acid 400 mcg Tablet (2 sources) Start: 05-19-2024 B Complex-Vitamin C-Folic Acid 400 mcg Tablet Active 1 {tbl} PO DAILY 0 May 19, 2024 1:00am baclofen 5 mg oral tablet (17 sources) gamma-Aminobutyri c Acid-ergic Agonist Start: 05-29-2024 take 1 tablet by mouth three times daily baclofen 5 mg tablet Take 5 mg by mouth three times a day. 05/29/2024 Active Start: 04-16-2024 End: 05-19-2024 cholecalciferol 0.025 mg ora l tablet (20 sources) Vitamin D Start: 05-19-2024 Start: 04-03-2019 End: 05-19-2024 Start: 02-04-2012 take 1 tablet by libby twice daily VITAMIN D 2000 UNIT TABS One tablet by mouth twice daily CHOLECALCIFEROL [id number] Bret Daniels MD Start: 02-04-2012 take 2 tablets by mo [facility] once daily VITAMIN D 2000 UNIT TABS Two tablets by mouth daily CHOLECALCIFEROL [id number] Lyric Murcia RN take 1 tablet by libby once daily cholecalciferol (VITAMIN D) 1,000 unit tab tablet Take 1,000 Units by mouth once daily. Active take 1 tablet by libby once daily Cholecalciferol, Vitamin D3, (VITAMIN D-3) 5,000 unit tab Take 5,000 Units by mouth once daily. Active citalopram 10 mg oral tablet (5 sources) Serotonin Reuptake Inhibitor citalopram hydrobrom eugene (CELEXA) 10 mg tablet Take by mouth once daily. Active COMPOUNDED PRESCRIPTION (10 sources) Start: 01-25-2016 COMPOUNDED PRESCRIPTION Viki kenny defense 17 drops daily and working up to 60 drops daily (in divided doses). Serving size 30 drops. 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 Dx: Bilat sprained ankles, gait instability. 1 Each 0 06/07/2015 Active docusate sodium 50 mg / ana osides, assisted 8.6 mg oral tablet (17 sources) Start: 04-16-2024 End: 05-19-2024 Start: 04-16-2024 End: 05-19-2024 Sennosides-Docusate Sodium ( Stimulant Laxative Plus) 8.6-50 mg Tablet Active 2 {tbl} PO TWICE A DAY as needed for Constipation 0 May 19, 2024 1:00am take 1 tablet by libby once daily senna-docusate (SENNA PLUS) 8.6-50 mg per tablet Take 1 tablet by mouth once daily. Active folic acid 1 mg oral tablet (20 sources) Start: 06-11-2016 lidocaine 0.05 mg/mg medicated patch (12 sources) Antiarrhythmic, Amide Local Anesthetic Start: 04-16-2024 End: 04-16-2024 lidocaine 0.04 mg/mg / menthol 0.04 mg/mg medicated patch (5 sources) Antiarrhythmic, Amide Local Anesthetic lidocaine-menthol 4-4 % ptmd Apply to affected area. on in am and off @ HS Active magnesium chloride 598 mg delayed release oral tablet (11 sources) Start: 05-19-2024 take 1 tablet by mouth once satcey y magnesium chloride [address] tablet Take 64 mg by mouth once daily. Active magnesium citrate 58.2 mg/ml oral solution (11 sources) Start: 05-19-2024 Start: 05-19-2024 take 1 mL by mouth o nce daily as needed for constipation Magnesium Citrate Solution Active 300 mL PO DAILY as needed for Constipation 0 May 19, 2024 1:00am MAGNESIUM CITRAT E ORAL Take 300 mL by mouth as needed. Active Menthol / Zinc Oxide (2 sources) Start: 05-19-2024 Menthol-Zinc O xide (Calmoseptine) 0.44-20.6 % Ointment Active 1 NMA TOPICAL TWICE A DAY 0 May 19, 2024 1:00am Please contact the information source for Protocol details. 24 hr metoprolol succinate 25 mg extended release oral tablet (20 sources) beta-Adrenergic Berenice Start: 04-16-2024 Start: 08-18-2017 End: 04-16-2024 Start: 11-01-2016 End: 08-18-2017 Start: 11-01-2016 End: 08-18-2017 Start: 11-13-2014 End: 06-16-2017 Start: 11-13-2014 End: 06-16-2017 take 25 mg by mouth once daily Metoprolol Succinate Di scontinued 25 MG PO DAILY November 13, 2014 12:00am June 16, 2017 1:39pm Start: 05-04-2013 End: 11-07-2014 Start: 05-04-2013 End: 11-07-2014 Metoprolol Succinate 50 MG t ablet Discontinued 25 mg PO DAILY May 04, 2013 1:00am November 07, 2014 6:47pm Start: 05-04-2013 End: 11-07-2014 take 25 mg by mouth once daily Metoprolol Succinate Di scontinued 25 MG PO DAILY May 04, 2013 1:00am November 07, 2014 6:47pm Start: 02-08-2013 take 1 tablet by libby th twice daily TOPROL XL 25 MG [id number] One tablet by mouth twice daily METOPROLOL SUCCINATE [id number] Bret Daniels MD Start: 02-08-2013 take 1 tablet by libby th twice daily TOPROL XL 25 MG [id number] One tablet by mouth twice daily METOPROLOL SUCCINATE [id number] Lyric Murcia RN Start: 02-08-2013 take 1 tablet by libby th once daily TOPROL XL 25 MG [id number] One tablet by mouth daily METOPROLOL SUCCINATE [id number] Ashley Ernst PA-C Start: 02-08-2013 take 1 tablet by libby th twice daily TOPROL XL 25 MG [id number] One tablet by mouth twice daily METOPROLOL SUCCINATE [id number] Bret Daniels MD Start: 02-08-2013 take 1 tablet by libby th once daily TOPROL XL 50 MG [id number] One half tablet by mouth daily METOPROLOL SUCCINATE [id number] Bret Daniels MD Start: 02-08-2013 take 1 tablet by libby th twice daily TOPROL XL 25 MG [id number] One tablet by mouth twice daily METOPROLOL SUCCINATE [id number] Lyric Murcia RN Start: 02-08-2013 take 1 tablet by libby th once daily TOPROL XL 25 MG [id number] One tablet by mouth daily METOPROLOL SUCCINATE [id number] Ashley Ernst PA-C Start: 02-04-2012 take 1 tablet by libby th once daily TOPROL XL 50 MG [id number] One tablet by mouth daily METOPROLOL SUCCINATE [id number] Bret Daniels MD Start: 02-04-2012 take 1 tablet by libby th once daily TOPROL XL 50 MG [id number] One tablet by mouth daily METOPROLOL SUCCINATE [id number] Bret Daniels MD MULTIVITAMIN TAB (5 sources) Start: 09-02-2005 MULTIVITAMIN T AB Take one(1) tablet daily. 0 09/02/2005 Active nystatin 100 unt/mg topical powder (20 sources) Polyene Antifungal Start: 04-16-2024 End: 05-19-2024 Start: 04-16-2024 End: 05-19-2024 Nystatin (Nyamyc) 100,000 un it/gram Powder Active 1 NMA TOPICAL TWICE A DAY 0 May 19, 2024 1:00am Please contact the information source for Protocol details. Start: 09-25-2022 End: 10-02-2022 Start: 09-25-2022 End: 10-02-2022 Nystatin 100,000 unit/gram c ream Discontinued 1 NMA TOPICAL TWICE A DAY 27 10September 25, 2022 4:10pm October 01, 2022 12:00am October 02, 2022 12:03am Start: 09-25-2022 End: 10-02-2022 Nystatin Discontinued 1 APPL IC TOPICAL TWICE A DAY 27 10September 25, 2022 4:10pm October 02, 2022 12:03am Start: 04-26-2019 End: 05-11-2019 Start: 04-26-2019 End: 05-11-2019 Nystatin Discontinued 1 APPL IC TOPICAL [id number] 26, 2019 1:00am May 11, 2019 3:42pm Start: 08-27-2017 End: 07-14-2018 Start: 08-27-2017 End: 07-14-2018 Nystatin Discontinued 1 APPL IC TOPICAL [id number] 27, 2017 12:00am July 14, 2018 2:55pm ondansetron 4 mg oral tablet (5 sources) Serotonin-3 Receptor Antagonist ondansetron (ZOFRAN) 4 mg tablet Take by mouth every 4 hours as needed for nausea/vomiting. Active OTC NUTRITIONAL SUPPLEMENT (5 sources) OTC NUTRITIONAL SUPPLEMENT zypan supplement Active 1.17 ml romosozumab-aqqg 89.7 mg/ml prefilled syringe (4 sources) Start: 07-22-2024 End: 07-22-2025 romosozumab-aqqg (EVENITY) 105 mg/1.17 mL syrg syringe Indications: Age-related osteoporosis with current pathological fracture, initial encounter , History of vertebral compression fracture Inject 2 syringes subcutaneously once every month. 2 each 07/22/2024 07/22/2025 Active traMADol hydrochloride 50 mg oral tablet (12 sources) Opioid Agonist Start: 04-11-2024 End: 05-19-2024 Start: 04-11-2024 End: 05-19-2024 take 1 tablet by mouth twice daily as needed for pain Tramadol 50 mg tablet Discontinued 50 mg PO TWICE DAILY NEEDED as needed for pain April 11, 2024 1:00am May 19, 2024 9:06pm vitamin B 12 (16 sources) Vitamin B12 Start: 05-19-2024 take 2 tablets by mouth once daily Cyanocobalamin (Vitamin B-12) 500 mcg Tablet Active 1000 ug PO DAILY 0 May 19, 2024 1:00am Start: 04-11-2024 End: 05-19-2024 Start: 02-04-2012 take 1 tablet by libby th once daily VITAMIN B-12 100 MCG TABS One tablet by mouth daily CYANOCOBALAMIN [id number] Bret Daniels MD take 1 tablet by libby th once daily cyanocobalamin (VITAMIN B-12) 1,000 mcg tab Take 1,000 mcg by mouth once daily. Active vitamin B complex (20 sources) Start: 04-03-2019 Vitamin B Comp rodney Active 1 EACH PO DAILY April 03, 2019 12:00am Start: 04-03-2019 Vitamin B Comp rodney Active 1 EACH PO DAILY April 03, 2019 1:00am Start: 06-13-2015 take 1 tablet by libby th once daily VITAMIN B COMPLEX TABS One tablet by mouth daily B COMPLEX VITAMINS [id number] Bret Daniels MD Start: 05-22-2014 End: 07-14-2018 Vitamin B Complex Discontinu ed 1 EACH PO DAILY May 22, 2014 12:00am July 14, 2018 1:54pm Start: 05-22-2014 End: 07-14-2018 Vitamin B Complex Discontinu ed 1 EACH PO DAILY May 22, 2014 1:00am July 14, 2018 2:54pm Start: 02-04-2012 take 1 tablet by libby th once daily VITAMIN B COMPLEX TABS One tablet by mouth daily B COMPLEX VITAMINS [id number] Lyric Murcia RN Start: 02-04-2012 End: 03-08-2015 take 1 tablet by mouth once daily VITAMIN B COMPLEX TABS One tablet by mouth daily B COMPLEX VITAMINS [id number] Ashley Ernst PA-C VITAMIN B COMPLEX ORAL (5 sources) Start: 05-22-2014 VITAMIN B COMP RODNEY ORAL once daily. 05/22/2014 Active (20 sources) Start: 05-19-2024 Start: 04-11-2024 End: 05-19-2024 Start: 01-06-2023 End: 05-19-2024 Start: 04-26-2019 End: 05-11-2019 Start: 04-03-2019 End: 05-19-2024 Start: 04-03-2019 End: 01-06-2023 Start: 06-16-2017 End: 07-14-2018 Start: 02-16-2015 End: 07-02-2017 Start: 10-13-2014 End: 02-19-2015 Start: 05-22-2014 End: 06-16-2017 Start: 05-22-2014 End: 07-14-2018 Completed/Discontinued Medications Medication Drug Class(es) Dates Sig (Normalized) Sig (Original) acetaminophen 500 mg oral tablet (20 sources) Start: 04-08-2019 End: 05-19-2024 Start: 04-08-2019 End: 05-19-2024 Start: 04-08-2019 End: 05-19-2024 Start: 04-08-2019 End: 04-26-2019 take 1 tablet by mouth every four hours Acetaminophen 500 MG tablet Discontinued 500 mg PO Q4H April 08, 2019 1:00am April 26, 2019 9:12pm Start: 08-18-2017 End: 07-14-2018 Start: 08-18-2017 End: 07-14-2018 take 650 mg by mouth every four hours as needed Acetaminophen Discontinued 650 MG PO EVERY 4 HOURS NEEDED August 18, 2017 12:00am July 14, 2018 2:49pm Start: 07-15-2016 End: 08-18-2017 Start: 07-15-2016 End: 08-18-2017 take 1 tablet by mouth once daily Acetaminophen 500 MG tablet Discontinued 500 mg PO DAILY July 15, 2016 12:00am August 18, 2017 3:35pm Start: 03-17-2015 take 1 tablet by libby th every six hours as needed for pain acetaminophen (TYLENOL EXTRA STRENGTH) 500 mg tablet Indications: Neck pain, musculoskeletal , Pain in right hip , Pain in left knee , Gait instability , Muscle weakness (generalized) , Spondylolisthesis, grade 3 Take 1 tablet by mouth every 6 hours as needed for Pain. 0 03/17/2015 Active acetaminophen 325 mg / HYDRO codone bitartrate 5 mg oral tablet (20 sources) Opioid Agonist Start: 03-31-2024 End: 04-11-2024 Start: 03-31-2024 End: 04-11-2024 Hydrocodone-Acetaminophen 5- 325 mg tablet Discontinued 1 {tbl} PO Q8H as needed for pain 10 March 31, 2024 April 11, 2024 1:31pm Start: 07-15-2016 End: 07-02-2017 Start: 07-15-2016 End: 07-02-2017 Hydrocodone-Acetaminophen 1 TABLET tablet Discontinued 1 {tbl} PO EVERY 4 HOURS NEEDED as needed for Pain July 15, 2016 12:00am July 02, 2017 2:34pm Start: 07-15-2016 End: 07-02-2017 take 1 tablet by mouth every four hours as needed Hydrocodone-Acetaminophen Discontinued 1 TABLET PO EVERY 4 HOURS NEEDED July 15, 2016 12:00am July 02, 2017 2:34pm [place] (20 sources) Start: 05-25-2020 End: 02-23-2024 Start: 05-25-2020 End: 02-23-2024 Lincoln 650 mg tablet Discon tinued mg PO May 25, 2020 1:00am February 23, 2024 1:42pm Start: 05-25-2020 [place] Active MG PO May 25, 2020 12:00am Start: 05-25-2020 [place] Active MG PO May 25, 2020 1:00am Start: 07-02-2017 End: 08-18-2017 Start: 07-02-2017 End: 08-18-2017 take 1 tablet by mouth once daily Lincoln 650 mg tablet Discontinued 650 mg PO daily July 02, 2017 12:00am August 18, 2017 3:35pm Start: 07-02-2017 End: 08-18-2017 take 650 mg by mouth once daily [place] Discontinued 6 50 MG PO daily July 01, 2017 11:00pm August 18, 2017 2:35pm Start: 07-02-2017 End: 08-18-2017 take 650 mg by mouth once daily [place] Discontinued 6 50 MG PO daily July 02, 2017 12:00am August 18, 2017 3:35pm Start: 02-03-2013 End: 02-10-2014 ALFALFA 650 MG TABS as neede d ALFALFA [id number] Ashley Ernst PA-C amLODIPine 2.5 mg oral table t (20 sources) Dihydropyridine Calcium Channel Berenice Start: 04-09-2019 End: 03-29-2024 Start: 04-09-2019 End: 05-09-2023 take 1 tablet by mouth once daily Amlodipine 2.5 mg tablet Discontinued 2.5 mg PO DAILY May 09, 2023 2:27pm May 09, 2023 2:30pm Start: 04-26-2015 End: 06-13-2015 take 1 tablet by mouth once daily AMLODIPINE BESYLATE 5 MG TABS One tablet by mouth daily AMLODIPINE BESYLATE [id number] Bret Daniels MD Start: 08-03-2014 End: 08-05-2014 take 1 tablet by mouth once daily NORVASC 2.5 MG TABS One tablet by mouth daily AMLODIPINE BESYLATE [id number] Lyric Murcia RN amoxicillin 500 mg oral caps ule (19 sources) Penicillin-class Antibacterial Start: 02-01-2019 End: 02-12-2019 Start: 02-01-2019 End: 02-12-2019 take 1000 mg by mouth twice daily Amoxicillin Discontinued 1000 MG PO TWICE A DAY 40 February 01, 2019 1:00am February 12, 2019 1:08am amoxicillin 875 mg / clavulanate 125 mg oral tablet (1 source) Penicillin-class Antibacterial Start: 03-19-2006 take 1 tablet by mouth twice daily AUGMENTIN, 875-125MG (Oral Tablet) 1 (one) Tablet Twice daily for 0 days Quantity: 28 {Tablet} Refills: 0 Ordered: 19-Mar-2006 Fast DO, Noreen A Fast DO, Noreen A Start : 19-Mar-2006 Active ascorbic acid 1000 mg oral tablet (6 sources) Start: 08-03-2014 End: 08-05-2014 take 1 tablet by mouth once daily VITAMIN C 1000 MG TABS One tablet by mouth daily ASCORBIC ACID [id number] Lyric Murcia RN aspirin 81 mg chewable tablet (19 sources) Platelet Aggregation Inhibitor, Nonsteroidal Anti-inflammatory Drug Start: 11-07-2014 End: 02-19-2015 aspirin 400 mg / caffeine 32 mg oral tablet (20 sources) Nonsteroidal Anti-inflammatory Drug, Central Nervous System Stimulant, Methylxanthine Start: 02-16-2015 End: 02-19-2015 Start: 08-03-2014 End: 03-01-2015 take 2 tablets by mouth four times daily as needed ANACIN 400-32 MG TABS Two tablets by mouth four times daily as needed ASPIRIN-CAFFEINE [id number] Lyric Murcia RN Start: 08-03-2014 take 2 tablets by mo uth four times daily as needed ANACIN 400-32 MG TABS Two tablets by mouth four times daily as needed ASPIRIN-CAFFEINE [id number] Lyric Murcia RN Start: 08-03-2014 take 2 tablets by mo uth four times daily as needed ANACIN 400-32 MG TABS Two tablets by mouth four times daily as needed ASPIRIN-CAFFEINE Lyric Murcia RN Start: 08-03-2014 End: 03-01-2015 take 2 tablets by mouth four times daily as needed ANACIN 400-32 MG TABS Two tablets by mouth four times daily as needed ASPIRIN-CAFFEINE Lyric Murcia RN Start: 05-22-2014 End: 11-07-2014 Start: 05-22-2014 End: 11-07-2014 Aspirin-Caffeine (Anacin) 1 EACH tablet Discontinued 2 {tbl} PO 5 TIMES DAILY as needed for Pain May 22, 2014 1:00am November 07, 2014 6:47pm Start: 02-03-2013 ANACIN 400-32 MG TABS as needed ASPIRIN-CAFFEINE [id number] Elenita Villalobos RN Start: 02-03-2013 End: 02-10-2014 ANACIN 400-32 MG TABS as nee ded ASPIRIN-CAFFEINE [id number] Ashley Ernst PA-C Start: 02-03-2013 End: 02-10-2014 ANACIN 400-32 MG TABS as nee ded ASPIRIN-CAFFEINE Ashley Ernst PA-C Start: 02-03-2013 ANACIN 400-32 MG TABS as needed ASPIRIN-CAFFEINE Elenita Villalobos RN atorvastatin 20 mg oral tablet (6 sources) HMG-CoA Reductase Inhibitor Start: 03-01-2015 End: 04-26-2015 take 1 tablet by mouth once daily ATORVASTATIN CALCIUM 20 MG TABS One tablet by mouth daily ATORVASTATIN CALCIUM [id number] Jessica Smith RN azaTHIOprine 100 mg injection (6 sources) Purine Antimetabolite Start: 03-01-2015 End: 03-08-2015 take 1 tablet by mouth once daily AZASAN 100 MG TABS One tablet by mouth daily AZATHIOPRINE [id number] Lyric Murcia RN biotin (6 sources) Start: 02-04-2012 End: 02-08-2013 take 1 tablet by mouth once daily BIOTIN FORTE TABS One tablet by mouth daily BIOTIN TABS [id number] Ashley Ernst PA-C Start: 02-04-2012 take 1 tablet by libby th once daily BIOTIN FORTE TABS One tablet by mouth daily BIOTIN TABS [id number] Bret Daniels MD CALCIUM-MAGNESIUM TABS (3 sources) Start: 02-04-2012 take 2 tablets by mouth once daily THERESE-MAG TABS Two tablets by mouth daily CALCIUM-MAGNESIUM TABS [id number] Bret Daniels MD CATALYN (3 sources) Start: 06-11-2016 take 1 tablet by mouth once daily CATALYN One tablet by mouth daily NATAN Ernst PA-C chlorthalidone 50 mg oral tablet (20 sources) Thiazide-like Diuretic Start: 10-13-2014 End: 11-07-2014 Start: 10-13-2014 End: 11-07-2014 take 25 mg by mouth once daily Chlorthalidone Disconti nued 25 MG PO DAILY October 13, 2014 12:00am November 07, 2014 6:47pm Start: 08-05-2014 End: 01-23-2015 take 1 tablet by mouth once daily CHLORTHALIDONE 25 MG TABS One half tablet by mouth daily CHLORTHALIDONE [id number] Marielle Susan DELGADILLO Start: 05-22-2014 End: 05-23-2014 Start: 05-22-2014 End: 05-23-2014 take 25 mg by mouth once daily Chlorthalidone Disconti nued 25 MG PO DAILY May 22, 2014 1:00am May 23, 2014 3:11pm clindamycin 300 mg oral caps ule (13 sources) Lincosamide Antibacterial Start: 09-25-2022 End: 10-02-2022 take 4 capsules by mouth every h our CLINDAMYCIN HCL, 150MG (Oral Capsule) 4 capsules 1 hour prior to dental procedure for 0 days Refills: 0 Ordered: 19-Mar-2006 Mast ELIE, Day Active Comments: due to knee replacement Comment on above: due to knee replacem ent docusate sodium 100 mg oral capsule (19 sources) Start: 2014 End: 2014 doxazosin 4 mg oral tablet (19 sources) alpha-Adrenergic Berenice Start: 2019 End: 2019 [employer] (3 sources) Start: 2016 [employer] 29 drops daily [employer] Ashley Ernst PA-C hydroCHLOROthiazide 25 mg oral tablet (6 sources) Thiazide Diuretic Start: 2012 End: 2014 take 1 tablet by mouth once daily HYDROCHLOROTHIAZIDE 25 MG TABS One tablet by mouth daily HYDROCHLOROTHIAZIDE [id number] Bret Daniels MD lactulose 667 mg/ml oral solution (20 sources) Osmotic Laxative Start: 2020 End: 2022 Start: 03-01-2015 LACTULOSE 10 G M/15ML SOLN 30 cc (20 gm) by mouth daily as needed LACTULOSE [id number] Bret Daniels MD Start: 11-14-2014 End: 07-15-2016 Start: 11-14-2014 End: 07-15-2016 Lactulose 20 GM/30 ML Udc Di scontinued 20 g PO DAILY November 14, 2014 12:00am July 15, 2016 12:10am may increase to three tablespoons daily if needed, may reduce to one tablespoon daily if having diarrhea lisinopril 2.5 mg oral tablet (1 source) Angiotensin Converting Enzyme Inhibitor take 1 tablet by mouth twice daily LISINOPRIL, 2.5MG (Oral Tablet) 1 BID for 0 days Refills: 0 Ordered: 19-Mar-2006 Mast Day DELGADILLO Active Magnesium (20 sources) Start: End: Magnesium 250 mg tablet Discontinued 400 mg PO DAILY January 06, 2023 2:37pm May 19, 2024 9:04pm Start: 01-06-2023 take 400 mg by mouth once stacey y Magnesium Active 400 MG PO DAILY January 06, 2023 2:37pm Start: 01-06-2023 take 400 mg by mouth once stacey y Magnesium Active 400 MG PO DAILY January 06, 2023 1:37pm Start: 04-03-2019 End: 01-06-2023 take 1 tablet by mouth once daily Magnesium 250 MG tablet Discontinued 250 mg PO DAILY April 03, 2019 1:00am January 06, 2023 2:38pm Start: 04-03-2019 End: 01-06-2023 take 250 mg by mouth once daily Magnesium Discontinued 250 MG PO DAILY April 03, 2019 1:00am January 06, 2023 2:38pm Start: 04-03-2019 End: 01-06-2023 take 250 mg by mouth once daily Magnesium Discontinued 250 MG PO DAILY April 03, 2019 12:00am January 06, 2023 1:38pm Start: 04-03-2019 take 250 mg by mouth once stacey y Magnesium Active 250 MG PO DAILY April 03, 2019 12:00am Start: 04-03-2019 take 250 mg by mouth once stacey y Magnesium Active 250 MG PO DAILY April 03, 2019 1:00am Start: 06-16-2017 End: 07-14-2018 take 3 tablets by mouth at bedtime Magnesium 250 MG tablet Discontinued 750 mg PO AT BEDTIME June 16, 2017 1:38pm July 14, 2018 2:55pm Start: 06-16-2017 End: 07-14-2018 take 750 mg by mouth at bedtime Magnesium Discontinued 750 MG PO AT BEDTIME June 16, 2017 12:38pm July 14, 2018 1:55pm Start: 06-16-2017 End: 07-14-2018 take 750 mg by mouth at bedtime Magnesium Discontinued 750 MG PO AT BEDTIME June 16, 2017 1:38pm July 14, 2018 2:55pm Start: 05-22-2014 End: 06-16-2017 take 4 tablets by mouth at bedtime Magnesium 250 MG tablet Discontinued 1000 mg PO AT BEDTIME May 22, 2014 1:00am June 16, 2017 1:40pm Start: 05-22-2014 End: 06-16-2017 take 1000 mg by mouth at bedtime Magnesium Discontinued 1000 MG PO AT BEDTIME May 22, 2014 12:00am June 16, 2017 12:40pm Start: 05-22-2014 End: 06-16-2017 take 1000 mg by mouth at bedtime Magnesium Discontinued 1000 MG PO AT BEDTIME May 22, 2014 1:00am June 16, 2017 1:40pm Magnesium 250 mg tab Take 1,000 mg by mouth. Active magnesium oxide (6 sources) Start: 08-13-2013 MAGNESIUM OXID E CAPS 4 tablets at bedtime 250mg tablets MAGNESIUM OXIDE CAPS [id number] Bret Daniels MD Start: 08-13-2013 MAGNESIUM OXID E CAPS 4 tablets at bedtime MAGNESIUM OXIDE CAPS [id number] Bret Daniels MD melatonin 3 mg oral tablet (19 sources) Start: 04-26-2019 End: 05-11-2019 Start: 04-26-2019 End: 05-11-2019 take 1 tablet by mouth at bedtime Melatonin 3 MG tablet Discontinued 3 mg PO AT BEDTIME April 26, 2019 1:00am May 11, 2019 3:41pm metoclopramide 10 mg oral ta blet (19 sources) Dopamine-2 Receptor Antagonist Start: 11-07-2014 End: 11-14-2014 Start: 11-07-2014 End: 11-14-2014 take 1 tablet by mouth at bedtime Metoclopramide Hcl 10 MG tablet Discontinued 10 mg PO BEFORE MEALS AND AT BEDTIME 120 November 07, 2014 12:00am November 14, 2014 9:48am Mineral Oil/Petrolatum,White (Eucerin) 1 APPLIC Jar (15 sources) Start: 04-26-2019 End: 05-11-2019 Mineral Oil/Petrolatum,White (Eucerin) 1 APPLIC Jar Discontinued 1 NMA TOPICAL AT BEDTIME April 26, 2019 1:00am May 11, 2019 3:42pm Please contact the information source for Protocol details. Start: 04-26-2019 End: 05-11-2019 Mineral Oil/Petrolatum,White (Eucerin) 1 APPLIC Jar Discontinued 1 APPLIC TOPICAL AT BEDTIME April 26, 2019 12:00am May 11, 2019 2:42pm Start: 04-26-2019 End: 05-11-2019 Mineral Oil/Petrolatum,White (Eucerin) 1 APPLIC Jar Discontinued 1 APPLIC TOPICAL AT BEDTIME April 26, 2019 1:00am May 11, 2019 3:42pm MULTIPLE VITAMIN (3 sources) Start: 02-04-2012 take 1 tablet by mouth once daily MULTIVITAMINS TABS One tablet by mouth daily MULTIPLE VITAMIN [id number] Bret Daniels MD Rkxcutiqxppn-Cj-Fkdd- Minerals (13 sources) Start: 02-16-2015 End: 07-02-2017 take 1 tablet by mouth once daily Jndgkdjypiuj-Qe-Vmje-Mine rals Discontinued 1 TABLET PO DAILY February 16, 2015 12:00am July 02, 2017 1:34pm Start: 02-16-2015 End: 07-02-2017 take 1 tablet by mouth once daily Sgnvedfqrinw-Of-Xzfj-Minerals Discontinu ed 1 TABLET PO DAILY February 16, 2015 1:00am July 02, 2017 2:34pm Tsczdgffpumd-Oz-Tkqw-Mineral s 1 EACH tablet (2 sources) Start: 02-16-2015 End: 07-02-2017 take 1 tablet by mouth once daily Smzefdzcrphf-Hi-Vest-Minerals 1 EACH tablet Discontinued 1 {tbl} PO DAILY February 16, 2015 1:00am July 02, 2017 2:34pm naproxen 250 mg oral tablet (6 sources) Nonster oidal Anti-in flammat ory Drug Start: 08-03-2014 End: 08-05-2014 take 1 tablet by mouth three times daily as needed NAPROXEN 250 MG TABS One tablet by mouth three times daily as needed NAPROXEN [id number] Bret Daniels MD nitrofurantoin, macrocrystal s 25 mg / nitrofurantoin, monohydrate 75 mg oral capsule (19 sources) Nitrofu ran Antibac terial Start: 04-10-2021 End: 01-06-2023 nortriptyline 10 mg oral capsule (19 sources) Tricycl ic Antidep ressant Start: 08-27-2017 End: 07-14-2018 Start: 08-27-2017 End: 07-14-2018 take 1 capsule by mouth at bedtime Nortriptyline 10 MG capsule Discontinued 10 mg PO AT BEDTIME August 27, 2017 12:00am July 14, 2018 2:56pm oxyCODONE hydrochloride 5 mg oral tablet (20 sources) Opioid Agonist Start: 06-03-2024 End: 08-11-2024 Start: 04-16-2024 End: 05-31-2024 take 1 capsule by [facility] every four hours as needed oxyCODONE ir (OXYIR) 5 mg capsule Take 5 mg by mouth every 4 hours as needed for pain. 0 Active pantoprazole 40 mg delayed r elease oral tablet (20 sources) Proton Pump Inhibitor Start: 11-18-2018 End: 02-01-2019 Start: 03-01-2015 End: 06-13-2015 take 1 tablet by mouth once daily PROTONIX 40 MG TBEC One tablet by mouth daily PANTOPRAZOLE SODIUM [id number] Bret Daniels MD Start: 03-01-2015 take 1 tablet by [facility] twice daily PROTONIX 40 MG TBEC One tablet by mouth twice daily PANTOPRAZOLE SODIUM [id number] Lyric Murcia RN potassium chloride 10 meq ex tended release oral tablet (20 sources) Start: 05-04-2013 End: 11-14-2014 Start: 02-08-2013 End: 03-01-2015 take 1 tablet by mouth once daily KLOR-CON M20 20 MEQ CR-TABS One tablet by mouth daily POTASSIUM CHLORIDE IRMA CR [id number] Lyric Murcia RN Start: 02-08-2013 take 1 tablet by libby th once daily KLOR-CON M20 20 MEQ CR-TABS One tablet by mouth daily POTASSIUM CHLORIDE IRMA CR [id number] Ashley Ernst PA-C Start: 02-08-2013 take 1 tablet by libby th once daily KLOR-CON M20 20 MEQ CR-TABS One tablet by mouth daily POTASSIUM CHLORIDE IRMA CR [id number] Ashley Ernst PA-C Start: 02-08-2013 End: 03-01-2015 take 1 tablet by mouth once daily KLOR-CON M20 20 MEQ CR-TABS One tablet by mouth daily POTASSIUM CHLORIDE IRMA CR [id number] Lyric Murcia RN Start: 08-13-2012 take 1 tablet by libby th twice daily KLOR-CON M20 20 MEQ CR-TABS One tablet by mouth twice daily POTASSIUM CHLORIDE IRMA CR [id number] Lyric Murcia RN Start: 08-13-2012 take 1 tablet by libby th twice daily KLOR-CON M20 20 MEQ CR-TABS One tablet by mouth twice daily POTASSIUM CHLORIDE IRMA CR [id number] Lyric Murcia RN predniSONE 10 mg oral tablet (9 sources) Corticosteroid Start: 03-01-2015 End: 03-08-2015 take 1 tablet by mouth once daily PREDNISONE 10 MG TABS One tablet by mouth daily PREDNISONE [id number] Ashley Ernst PA-C sulfamethoxazole 800 mg / trimethoprim 160 mg oral tablet (20 sources) Dihydrofolate Reductase Inhibitor Antibacterial, Sulfonamide Antimicrobial Start: 04-03-2019 End: 04-09-2019 Start: 04-03-2019 End: 04-09-2019 Sulfamethoxazole-Trimethopri m 1 TABLET tablet Discontinued 1 {tbl} PO TWICE A DAY April 07, 2019 12:04am April 09, 2019 11:53am Start: 04-03-2019 End: 04-09-2019 take 1 tablet by mouth twice daily Sulfamethoxazole-Trimethoprim Discontinu ed 1 TABLET PO TWICE A DAY April 07, 2019 12:04am April 09, 2019 11:53am 24 hr tolterodine tartrate 2 mg extended release oral capsule (19 sources) Cholinergic Muscarinic Antagonist Start: 08-27-2017 End: 07-14-2018 Turmeric extract (2 sources) Start: 04-11-2024 End: 05-19-2024 take 1 capsule by mouth once daily Turmeric 400 mg capsule Discontinued 400 mg PO DAILY April 11, 2024 1:00am May 19, 2024 9:05pm vitamin a 26912 unt oral capsule (19 sources) Vitamin A Start: 07-02-2017 End: 07-14-2018 Vitamin B Complex 1 EACH capsule (2 sources) Start: 05-22-2014 End: 07-14-2018 Vitamin B Complex 1 EACH capsule Discontinued 1 NMA PO DAILY May 22, 2014 1:00am July 14, 2018 2:54pm Vitamin B Complex 1 EACH tablet (2 sources) Start: 04-03-2019 End: 05-19-2024 Vitamin B Complex 1 EACH tablet Discontinued 1 NMA PO DAILY April 03, 2019 1:00am May 19, 2024 9:05pm CHOLECALCIFEROL (3 sources) Start: 02-04-2012 take 3 tablets by mouth once daily VITAMIN D 1000 UNIT TABS Three tablets by mouth daily CHOLECALCIFEROL [id number] Bret Daniels MD Start: 02-04-2012 take 3 tablets by mo [facility] once daily VITAMIN D 1000 UNIT TABS Three tablets by mouth daily CHOLECALCIFEROL [id number] Bret Daniels MD Zypan (15 sources) Start: 10-13-2014 End: 02-19-2015 Zypan Discontinued 1 - 2 NMA PO 3 TIMES DAILY WITH MEALS October 13, 2014 12:00am February 19, 2015 12:17pm Start: 10-13-2014 End: 02-19-2015 take 1 capsule by mouth three times daily at mealtime Zypan Discontinued 1 - 2 CAP PO 3 TIMES DAILY WITH MEALS October 12, 2014 11:00pm February 19, 2015 11:17am Start: 10-13-2014 End: 02-19-2015 take 1 capsule by mouth three times daily at mealtime Zypan Discontinued 1 - 2 CAP PO 3 TIMES DAILY WITH MEALS October 13, 2014 12:00am February 19, 2015 12:17pm Problems Active Problems Problem Classification Problem Date Documented Da te Episodic/Chronic Abdominal hernia (15 sources) Left inguinal hernia ; Translations: [Unilateral inguinal hernia, without obstruction or gangrene, not specified as recurrent] 06-27-2022 Episodic Abdominal pain (20 sources) Finding of sensation of abdomen; Translations: [Unspecified abdominal pain] 03-12-2022 Episodic Acute and unspecified renal failure (19 sources) Injury of kidney; Translations: [Acute kidney failure, unspecified] 06-12-2020 Episodic Acute myocardial infarction (3 sources) Subsequent non-ST elevation (NSTEMI) myocardial infarction; Translations: [Subsequent non-ST elevation (NSTEMI) myocardial infarction] Onset: 5 03-08-2015 Chronic Cardiac dysrhythmias (20 sources) Supraventricular tachycardia; Translations: [Supraventricular tachycardia] Onset: 2 02-03-2012 Chronic Coronary atherosclerosis and other heart disease (19 sources) History of non-ST segment elevation myocardial infarction; Translations: [Old myocardial infarction] Onset: 5 01-04-2022 Chronic Deficiency and other anemia (1 source) Vitamin B12 deficiency anemia, unspecified; Translations: [Vitamin B12 deficiency anemia, unspecified] Onset: 5 Episodic Deficiency and other anemia (1 source) Folate deficiency anemia, unspecified; Translations: [Folate deficiency anemia, unspecified] Onset: 5 Episodic E Codes: Fall (6 sources) Fall; Translations: [Unspecified fall, initial encounter] 03-04-2024 Episodic Essential hypertension (20 sources) Hypertensive disorder; Translations: [Essential hypertension] Onset: 5 03-08-2015 Chronic Comment on above: chronic stable-kell nue present regimen Gastrointestinal hemorrhage (20 sources) Gastrointestinal hemorrhage; Translations: [Gastrointestinal hemorrhage, unspecified] Onset: 5 04-07-2019 Episodic Heart valve disorders (20 sources) Aortic valve stenosis; Translations: [Aortic stenosis, non-rheumatic ] Onset: 7 06-11-2016 Chronic Immunity disorders (20 sources) Sarcoidosis; Translations: [Sarcoidosis, unspecified] 06-03-2022 Chronic Menopausal disorders (12 sources) Postmenopausal bleeding; Translations: [Postmenopausal bleeding] 04-16-2024 Chronic Mood disorders (2 sources) Dysthymia; Translations: [Dysthymic] 02-13-2015 Chronic Comment on above: at this point will gregorio sweeney as she doesnt want to tryother meds Nutritional deficiencies (13 sources) Vitamin D deficiency; Translations: [Vitamin D deficiency, unspecified] Onset: 5 04-16-2024 Chronic Open wounds of head; neck; and trunk (6 sources) Scalp laceration; Translations: [Laceration without foreign body of scalp, initial encounter] 03-04-2024 Episodic Osteoarthritis (7 sources) Osteoarthrosis, unspecified whether generalized or localized, lower leg; Translations: [Osteoarthritis] Onset: 9 02-27-2006 Chronic Comment on above: s/pknee replacement on the left- 2004 Other acquired deformities (6 sources) Lumbar spondylolisthesis; Translations: [Spondylolisthesis, lumbar region] 11-14-2023 Episodic Other acquired deformities (1 source) Acquired spondylolisthesis; Translations: [Spondylolisthesis, site unspecified] 08-13-2024 Episodic Other bone disease and musculoskeletal deformities (2 sources) Osteopenia; Translations: [Other specified disorders of bone density and structure, unspecified site] 07-21-2024 Episodic Other bone disease and musculoskeletal deformities (1 source) Other specified disorders of bone density and structure, unspecified site; Translations: [Osteopenia, unspecified location] Onset: 5 Episodic Other congenital anomalies (5 sources) Congenital pes planus; Translations: [Congenital pes planus, unspecified foot] Onset: 8 10-09-2023 Chronic Other connective tissue disease (2 sources) History of total knee arthroplasty; Translations: [Total Knee Replacement] Onset: 5 02-27-2006 Chronic Comment on above: left 2004 left Other disorders of stomach and duodenum (20 sources) Gastroparesis syndrome; Translations: [Gastroparesis] 06-03-2022 Episodic Other endocrine disorders (2 sources) Hypoglycemia; Translations: [Hypoglycemia] 03-19-2006 Chronic Comment on above: educatuion on small frequent meals and increasing protein and fiber and decreasing white flour and adding more whole grain products- can be precurser to dm Other fractures (17 sources) Compression fracture of lumbar spine; Translations: [Wedge compression fracture of first lumbar vertebra, initial encounter for closed fracture] 04-11-2024 Episodic Other fractures (1 source) Wedge compression fracture of first lumbar vertebra, subsequent encounter for fracture with routine healing; Translations: [Wedge compression fracture of first lumbar vertebra, subsequent encounter for fracture with routine healing] Onset: 5 Episodic Other gastrointestinal disorders (17 sources) Diarrhea; Translations: [Diarrhea, unspecified] 06-07-2022 Episodic Other gastrointestinal disorders (20 sources) Constipation; Translations: [Constipation, unspecified] Onset: 5 Resolved: 2 03-12-2022 Episodic Other gastrointestinal disorders (16 sources) Abdominal bloating; Translations: [Abdominal distension (gaseous)] 06-07-2022 Episodic Other gastrointestinal disorders (1 source) Constipation, unspecified; Translations: [Constipation, unspecified] Onset: 5 Episodic Other injuries and conditions due to external causes (3 sources) H/O: vertebral fracture; Translations: [Personal history of (healed) traumatic fracture] 07-21-2024 Episodic Other injuries and conditions due to external causes (1 source) Personal history of (healed) traumatic fracture; Translations: [History of vertebral compression fracture] Onset: 5 Episodic Other nervous system disorders (12 sources) Peripheral neuropathic pain; Translations: [Unspecified mononeuropathy of bilateral lower limbs] 04-16-2024 Chronic Other nervous system disorders (6 sources) Syringomyelia; 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] 11-14-2023 Chronic Other nervous system disorders (10 sources) Unable to walk; Translations: [Difficulty in walking, not elsewhere classified] 04-11-2024 Chronic Other nervous system disorders (5 sources) Disease of spinal cord, unspecified; Translations: [Unspecified disease of spinal cord] Onset: 4 12-14-2013 Chronic Other nervous system disorders (5 sources) Spinal cord disease; Translations: [Disease of spinal cord, unspecified] Onset: 5 04-22-2014 Chronic Other nutritional; endocrine; and metabolic disorders (12 sources) Body mass index (BMI) 33.0-33.9, adult; Translations: [Body mass index (BMI) 40.0-44.9, adult] Onset: 4 Resolved: 5 03-08-2015 Chronic Other nutritional; endocrine; and metabolic disorders (14 sources) Obesity 01-04-2022 Chronic Other nutritional; endocrine; and metabolic disorders (12 sources) Hypomagnesemia; Translations: [Hypomagnesemia] 04-16-2024 Chronic Other upper respiratory infections (1 source) Chronic sinusitis; Translations: [Sinusitis, chronic] 01-03-2015 Chronic Other upper respiratory infections (2 sources) Acute sinusitis; Translations: [Acute sinusitis] 03-19-2006 Episodic Skin and subcutaneous tissue infections (17 sources) Cellulitis; Translations: [Cellulitis, unspecified] 09-25-2022 Episodic Spondylosis; intervertebral disc disorders; other back problems (1 source) Cervical spondylosis without myelopathy; Translations: [Spondylosis without myelopathy or radiculopathy, cervical region] 08-13-2024 Chronic Spondylosis; intervertebral disc disorders; other back problems (20 sources) Disorder of right sciatic nerve; Translations: [Sciatica, right side] Onset: 4 04-08-2024 Episodic Sprains and strains (6 sources) Strain of neck muscle; Translations: [Strain of muscle, fascia and tendon at neck level, initial encounter] 03-04-2024 Episodic Superficial injury; contusion (6 sources) Injury of forehead; Translations: [Contusion of other part of head, initial encounter] 03-04-2024 Episodic Syncope (19 sources) Syncope; Translations: [Syncope and collapse] 04-18-2021 Episodic Unclassified (2 sources) F/U in 2 weeks after discharge from [facility] Unclassified (1 source) Established Patient Onset: 5 Unclassified (1 source) Low back pain, unspecified; Translations: [Low back pain, unspecified] Onset: 5 Urinary tract infections (19 sources) Acute urinary tract infection; Translations: [Urinary tract infection, site not specified] 04-18-2021 Episodic Past or Other Problems Problem Classification Problem Date Documented Da te Episodic/Chronic Allergic reactions (5 sources) Contact dermatitis; Translations: [Unspecified contact dermatitis, unspecified cause] Onset: 04-05-2008 01-18-2009 Episodic Biliary tract disease (5 sources) Chronic cholecystitis with calculus; Translations: [Calculus of gallbladder with chronic cholecystitis without obstruction] Onset: 11-21-2015 11-21-2015 Episodic Cardiac dysrhythmias (3 sources) Palpitations; Translations: [Palpitations] Onset: 02-03-2012 02-03-2012 Episodic Disorders of lipid metabolism (5 sources) Hyperlipidemia; Translations: [Hyperlipidemia, unspecified] Onset: 02-27-2005 Resolved: 07-30-2012 07-30-2012 Chronic Fluid and electrolyte disorders (1 source) Hypo-osmolality and hyponatremia; Translations: [Hypo-osmolality and hyponatremia] Onset: 10-17-2023 Episodic Gastroduodenal ulcer (except hemorrhage) (5 sources) Gastric ulcer without hemorrhage AND without perforation; Translations: [Gastric ulcer, unspecified as acute or chronic, without hemorrhage or perforation] Onset: 05-11-2015 Resolved: 05-11-2015 05-11-2015 Chronic Headache; including migraine (1 source) Headache; including migraine Hemorrhoids (5 sources) Internal hemorrhoids; Translations: [Other hemorrhoids] Onset: 03-08-2005 10-09-2023 Episodic Malaise and fatigue (18 sources) Asthenia; Translations: [Other malaise] Onset: 02-27-2005 04-16-2024 Episodic Other acquired deformities (7 sources) Spondylolisthesis, grade 3; Translations: [Spondylolisthesis, site unspecified] Onset: 04-22-2014 07-21-2024 Episodic Other acquired deformities (1 source) Spondylolisthesis, site unspecified; Translations: [Spondylolisthesis, grade 3] Onset: 04-22-2014 Episodic Other circulatory disease (19 sources) History of cerebrovascular accident; Translations: [Personal history of transient ischemic attack (TIA), and cerebral infarction without residual deficits] Onset: 03-31-2019 06-03-2022 Episodic Comment on above: Moderate atrophy and periventricular white matter ischemic changes with old infarct in left temporal lobe. per CT 03/2019 Other connective tissue disease (5 sources) Muscle pain; Translations: [Myalgia and myositis, unspecified] Onset: 09-02-2005 10-09-2023 Episodic Other connective tissue disease (5 sources) Tibialis tendinitis; Translations: [Posterior tibial tendinitis, unspecified leg] Onset: 10-19-2007 01-18-2009 Episodic Other connective tissue disease (5 sources) Muscle weakness; Translations: [Muscle weakness (generalized)] Onset: 07-07-2014 07-07-2014 Episodic Other connective tissue disease (5 sources) Ischial bursitis ; Translations: [Other bursitis of hip, right hip] Onset: 04-20-2015 04-20-2015 Episodic Other disorders of stomach and duodenum (6 sources) Gastroparesis; Translations: [Gastroparesis] Onset: 02-23-2024 09-25-2022 Episodic Other fractures (5 sources) Closed fracture lumbar vertebra, spondylolysis; Translations: [Fatigue fracture of vertebra, lumbar region, initial encounter for fracture] Onset: 04-22-2014 04-22-2014 Episodic Other fractures (2 sources) Wedge compression fracture of first lumbar vertebra, initial encounter for closed fracture; Translations: [Wedge compression fracture of first lumbar vertebra, initial encounter for closed fracture] Onset: 04-16-2024 Episodic Other gastrointestinal disorders (10 sources) Diarrhea, unspecified; Translations: [Diarrhea] Onset: 02-23-2024 06-07-2022 Episodic Other gastrointestinal disorders (1 source) Functional diarrhea; Translations: [Functional diarrhea] Onset: 02-23-2024 Episodic Other injuries and conditions due to external causes (5 sources) Angioedema; Translations: [Angioneurotic edema, initial encounter] Onset: 09-26-2014 03-26-2021 Episodic Other injuries and conditions due to external causes (1 source) Unspecified injury of head, initial encounter; Translations: [Unspecified injury of head, initial encounter] Onset: 03-25-2024 Episodic Other lower respiratory disease (3 sources) Dyspnea; Translations: [Shortness of breath] Onset: 02-03-2012 02-03-2012 Episodic Other nervous system disorders (5 sources) Paresthesia of hand ; Translations: [Anesthesia of skin] Onset: 12-14-2013 12-14-2013 Episodic Other nervous system disorders (10 sources) Abnormal gait; Translations: [Unsteadiness on feet] Onset: 12-14-2013 12-14-2013 Episodic Other nervous system disorders (5 sources) Impairment of balance; Translations: [Other abnormalities of gait and mobility] Onset: 10-12-2015 10-12-2015 Episodic Other nervous system disorders (2 sources) Anesthesia of skin; Translations: [Anesthesia of skin] Onset: 11-23-2023 Episodic Other non-traumatic joint disorders (1 source) Pain in left knee; Translations: [Pain in left knee] Onset: 12-30-2023 Episodic Other nutritional; endocrine; and metabolic disorders (5 sources) Body mass index 40+ - severely obese; Translations: [Morbid (severe) obesity due to excess calories] Resolved: 01-25-2016 01-25-2016 Chronic Other screening for suspected conditions (not mental disorders or infectious disease) (5 sources) Patient encounter status; Translations: [Encounter for screening for malignant neoplasm of colon] Onset: 10-06-2014 10-06-2014 Episodic Pathological fracture (13 sources) Pathological fracture of vertebra due to osteoporosis; Translations: [Age-related osteoporosis with current pathological fracture, vertebra(e), initial encounter for fracture] Onset: 04-16-2024 04-13-2024 Episodic Residual codes; unclassified (1 source) Asymptomatic menopausal state; Translations: [Asymptomatic menopausal state] Onset: 02-01-2024 Episodic Unclassified (3 sources) FH: Hypertension; Translations: [Family history of ischemic heart disease and other diseases of the circulatory system] 02-10-2014 Episodic Unclassified (1 source) left eye laser correction 02-27-2006 Unclassified (1 source) Pregnancies (); Translations: [Pregnancies ()] 02-26-2006 Unclassified (1 source) Viral infection (19 sources) Disease caused by 2019-nCoV; Translations: [COVID-19] Onset: 04-10-2021 01-04-2022 Episodic Results Test Name Value Interpretation Reference Range Facility Absolute lymphocyte countOrd ered By: Nikia Henderson on 08-24-2024 Lymphocytes Auto (Unsp spec) [#/Vol] 1.65 10*3/uL 0.83-4.51 [facility] Anion gap in Serum or Plasma Ordered By: Nikia Henderson on 08-24-2024 Anion gap [Moles/Vol] 9 mmol/L -15 [facility] Automated lymphocyte count a s percentage of total leukocytesOrdered By: Nikia Henderson on 08-24-2024 Lymphocytes/100 WBC Auto (Unsp spec) 25.9 % - [facility] BUN/creatinine ratioOrdered By: Nikia Henderson on 08-24-2024 Urea nitrogen/Creatinine [Mass ratio] 20.0 mg/mg 10-20 [facility] Basophil percentageOrdered B y: Cecilialaura Cristobaljanicevioletta on 08-24-2024 Basophils/100 WBC (Bld) 0.6 % 0-1 [facility] Carbon dioxide, total [Moles /volume] in Central venous bloodOrdered By: Nikia Henderson on 08-24-2024 CO2 [Moles/Vol] 26.4 mmol/L 21.0-32.0 [facility] Chloride assayOrdered By: Cecilia guanakoterra Henderson on 08-24-2024 Chloride [Moles/Vol] 107 mmol/L 98-108 [facility] Eosinophil percentageOrdered By: Cecilialaura Jainjanicevioletta on 08-24-2024 Eosinophils/100 WBC (Bld) 2.5 % 0-5 [facility] Erythrocyte distribution wid th ratioOrdered By: Nikia Henderson on 08-24-2024 Erythrocyte distribution width (RBC) [Ratio] 13.1 % 11.6-14.6 [facility] Erythrocyte distribution wid th standard deviationOrdered By: guanakochokoloskeeheladio Henderson on 08-24-2024 Erythrocyte distribution width (RBC) [Ratio] 49.5 fl High 35.1-43.9 [facility] Glomerular filtration rate ( GFR) estimation/1.73 sq m using serum, plasma, or whole bOrdered By: Nikia Henderson on 08-24-2024 GFR/1.73 sq M.predicted among non-blacks MDRD (S/P/Bld) [Vol rate/Area] 80 mL/min/{1.73_m2} >60 [facility] Hematocrit Auto (Bld) [Volum e fraction]Ordered By: Nikia Henderson on 08-24-2024 Hematocrit (Bld) [Volume fraction] 36.3 % Low 37-47 [facility] Hemoglobin measurementOrdere d By: Nikia Henderson on 08-24-2024 Hemoglobin (Bld) [Mass/Vol] 11.7 g/dL Low 12.0-15. 0 [facility] Immature granulocytes/100 WB C Auto (Bld)Ordered By: Nikia Henderson on 08-24-2024 Immature granulocytes/100 WBC (Bld) 0.300 % 0.0-0.9 [facility] MCV (mean corpuscular volume ) determinationOrdered By: Nikia Henderson on 08-24-2024 MCV (RBC) [Entitic vol] 102.0 fL High 81-99 [facility] Mean corpuscular hemoglobin (MCH) determinationOrdered By: Nikia Henderson on 08-24-2024 MCH (RBC) [Entitic mass] 32.9 pg High 27.0-32.0 [facility] Monocyte percentageOrdered B y: Nikia Henderson on 08-24-2024 Monocytes/100 WBC (Bld) 10.0 % 0-10 [facility] Neutrophil percentageOrdered By: Nikia Henderson on 08-24-2024 Neutrophils/100 WBC (Bld) 60.7 % 47-70 [facility] Platelet countOrdered By: Cecilia Henderson on 08-24-2024 Platelets (Bld) [#/Vol] 227 10*3/uL 150-450 [facility] Potassium measurement (mass/ volume)Ordered By: Nikia Henderson on 08-24-2024 Potassium (Unsp spec) [Mass/Vol] 4.1 mmol/L 3.3-5.1 [facility] RBC Auto (Bld) [#/Vol]Ordere d By: Nikia Henderson on 08-24-2024 RBC (Bld) [#/Vol] 3.56 10*6/uL Low 4.2-5.4 [facility] Serum creatinine measurement (mass/volume)Ordered By: Nikia Henderson on 08-24-2024 Creatinine [Mass/Vol] 0.76 mg/dL 0.70-1.20 [facility] Serum glucose measurement (m ass/volume)Ordered By: Nikia Henderson on 08-24-2024 Glucose [Mass/Vol] 88 mg/dL 70-99 [facility] Serum or plasma calcium gianluca urement (mass/volume)Ordered By: Nikia Henderson on 08-24-2024 Calcium [Mass/Vol] 9.0 mg/dL 7.6-11.0 [facility] Serum or plasma urea nitroge n measurement (mass/volume)Ordered By: [facility] Berrienheladio Henderson on 08-24-2024 Urea nitrogen [Mass/Vol] 15 mg/dL 4-19 [facility] Sodium levelOrdered By: [facility] on 08-24-2024 Sodium [Moles/Vol] 142 mmol/L 133-145 [facility] White blood cell (WBC) count Ordered By: [facility] Cristobalvioletta on 08-24-2024 WBC (Bld) [#/Vol] 6.4 10*3/uL 4.4-11.0 [facility] CNPNon 08-22-2024 CNPN Telephone (EMQ) LIZETTE DAVIES ([id number]) 1945 F Date Time Provider Department 08/22/24 AJAY GRANT EMQ During your visit today, we recorded the following information about you: Suha Mary 08/22/2024 10:02 AM Signed Dear Provider, Your patient's medication Evenity 210 mg was denied. Denial letters are sent directly to the patient and at times to the healthcare providers. If we receive a denial letter, it will be indexed for your review. If you want to appeal the decision. Please submit your request via staff message to the [employer] Appeals Pool ([id number]). You can find templates listed below to support your appeal in [employer] (Epic drop down, select patient care, select send letter). If it is an urgent request, you can email the [employer] Chandra auth Team at [email or web address]. Please make sure the documents below are completed in order to process your request. If the appeal is denied, do you want to schedule a peer to peer Yes/No. We will schedule peer to peer automatically if yes. 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 ALENDRONATE SODIUM 08/11/2017 8 - GI Upset CARDURA (DOXAZOSIN) 07/21/2024 14 - Other: See Comments CODEINE 11/01/2008 5 - Intolerance Comments: Headache FOSAMAX (ALENDRONATE) 04/19/2014 14 - Other: See Comments Comments: GI upset HYDROCHLOROTHIAZIDE 07/21/2024 14 - Other: See Comments IBUPROFEN 03/08/2005 8 - GI Upset Comments: Epigastric pain. In higher dose. LIPITOR (ATORVASTATIN) 07/05/2015 5 - Intolerance Comments: complained of weakness of legs NIFEDIPINE 07/21/2024 14 - Other: See Comments Date Reviewed: 08/13/2024 Reviewed by: Marybel Crespo MA - Fully Assessed Reason for Visit: Medication Preauthorization [914] Cmt: Evenity 210mg- Denied Prescriptions as of 08/22/2024 - romosozumab-aqqg (EVENITY) 105 mg/1.17 mL syrg syringe Inject 2 syringes subcutaneously once every month. - amLODIPine (NORVASC) 2.5 mg tablet Take 2.5 mg by mouth two times a day. - VITAMIN B COMPLEX ORAL once daily. - baclofen 5 mg tablet Take 5 mg by mouth three times a day. - cholecalciferol (VITAMIN D) 1,000 unit tab tablet Take 1,000 Units by mouth once daily. - cyanocobalamin (VITAMIN B-12) 1,000 mcg tab Take 1,000 mcg by mouth once daily. - folic acid 1 mg tablet Take 1 mg by mouth once daily. - magnesium chloride [address] tablet Take 64 mg by mouth once daily. - MAGNESIUM CITRATE ORAL Take 300 mL by mouth as needed. - oxyCODONE ir (OXYIR) 5 mg capsule Take 5 mg by mouth every 4 hours as needed for pain. - lidocaine-menthol 4-4 % ptmd Apply to affected area. on in am and off @ HS - senna-docusate (SENNA PLUS) 8.6-50 mg per tablet Take 1 tablet by mouth once daily. - citalopram hydrobromide (CELEXA) 10 mg tablet Take by mouth once daily. - ondansetron (ZOFRAN) 4 mg tablet Take by mouth every 4 hours as needed for nausea/vomiting. - metoprolol succinate ER (TOPROL XL) 25 mg 24 hr tablet Take 1 tablet by mouth twice daily. (prescribed by Dr. Daniels) - Cholecalciferol, Vitamin D3, (VITAMIN D-3) 5,000 unit tab Take 5,000 Units by mouth once daily. - COMPOUNDED PRESCRIPTION [employer] Ages[employer]oster[employer]'ol Blue defense 17 drops daily and working up to 60 drops daily (in divided doses). Serving size 30 drops. 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 Dx: Bilat sprained ankles, gait instability. - acetaminophen (TYLENOL EXTRA STRENGTH) 500 mg tablet Take 1 tablet by mouth every 6 hours as needed for Pain. - Magnesium 250 mg tab Take 1,000 mg by mouth. - MULTIVITAMIN TAB Take one(1) tablet daily. Problem List As Of Date 08/22/2024 Noted Resolved Essential hypertension [I10] 02/06/2005 Malaise and fatigue [R53.81, R53.83] 02/27/2005 Other and unspecified hyperlipidemia [E78.5] 02/27/2005 07/30/2012 INT HEMORRHOID W/O COMPL [K64.8] 03/08/2005 Unspecified constipation [K59.00] 03/08/2005 02/19/2012 GASTROINTEST HEMORR NOS [K92.2] 03/08/2005 MYALGIA AND MYOSITIS NOS [RGU4750] 09/02/2005 CONGENITAL PES PLANUS [Q66.50] 06/29/2007 Tibialis Tendinitis [M76.829] 10/19/2007 Generalized Osteoarthrosis, Unspecified Site [M*04/05/2008 Contact Dermatitis and Other Eczema, due to Uns*04/05/2008 Morbid obesity with BMI of 40.0-44.9, adult (HC* 01/25/2016 Low back pain [M54.50] 12/14/2013 Numbness and tingling in hands [R20.0, R20.2] 12/14/2013 Spinal cord lesion (HCC) [G95.9] 12/14/2013 Neck pain [M54.2] (more content not included)... Normal [facility] Absolute lymphocyte countOrd ered By: Nikia Henderson on 08-17-2024 Lymphocytes Auto (Unsp spec) [#/Vol] 1.53 10*3/uL 0.83-4.51 [facility] Anion gap in Serum or Plasma Ordered By: Nikia Henderson on 08-17-2024 Anion gap [Moles/Vol] 10 mmol/L 5-15 [facility] Automated lymphocyte count a s percentage of total leukocytesOrdered By: Nikia Henderson on 08-17-2024 Lymphocytes/100 WBC Auto (Unsp spec) 26.2 % 19-41 [facility] BUN/creatinine ratioOrdered By: Nikia Henderson on 08-17-2024 Urea nitrogen/Creatinine [Mass ratio] 20.9 mg/mg High 10-20 [facility] Basophil percentageOrdered B y: Nikia Henderson on 08-17-2024 Basophils/100 WBC (Bld) 0.9 % 0-1 [facility] Carbon dioxide, total [Moles /volume] in Central venous bloodOrdered By: Nikia Henderson on 08-17-2024 CO2 [Moles/Vol] 26.8 mmol/L 21.0-32.0 [facility] Chloride assayOrdered By: Cecilia Henderson on 08-17-2024 Chloride [Moles/Vol] 106 mmol/L 98-108 [facility] Eosinophil percentageOrdered By: Nikia Henderson on 08-17-2024 Eosinophils/100 WBC (Bld) 2.1 % 0-5 [facility] Erythrocyte distribution wid th ratioOrdered By: Nikia Henderson on 08-17-2024 Erythrocyte distribution width (RBC) [Ratio] 13.4 % 11.6-14.6 [facility] Erythrocyte distribution wid th standard deviationOrdered By: Nikia Henderson on 08-17-2024 Erythrocyte distribution width (RBC) [Ratio] 50.2 fl High 35.1-43.9 [facility] Glomerular filtration rate ( GFR) estimation/1.73 sq m using serum, plasma, or whole bOrdered By: Nikia Henderson on 08-17-2024 GFR/1.73 sq M.predicted among non-blacks MDRD (S/P/Bld) [Vol rate/Area] 90 mL/min/{1.73_m2} >60 [facility] Hematocrit Auto (Bld) [Volum e fraction]Ordered By: [facility] Berrienheladio Henderson on 08-17-2024 Hematocrit (Bld) [Volume fraction] 34.6 % Low 37-47 [facility] Hemoglobin measurementOrdere d By: Nikia Henderson on 08-17-2024 Hemoglobin (Bld) [Mass/Vol] 11.2 g/dL Low 12.0-15. 0 [facility] Immature granulocytes/100 WB C Auto (Bld)Ordered By: Nikia Henderson on 08-17-2024 Immature granulocytes/100 WBC (Bld) 0.500 % 0.0-0.9 [facility] MCV (mean corpuscular volume ) determinationOrdered By: Nikia Henderson on 08-17-2024 MCV (RBC) [Entitic vol] 102.7 fL High 81-99 [facility] Mean corpuscular hemoglobin (MCH) determinationOrdered By: [facility] Berrienheladio Henderson on 08-17-2024 MCH (RBC) [Entitic mass] 33.2 pg High 27.0-32.0 [facility] Monocyte percentageOrdered B y: Nikia Henderson on 08-17-2024 Monocytes/100 WBC (Bld) 9.8 % 0-10 [facility] Neutrophil percentageOrdered By: [facility] Berrienheladio Henderson on 08-17-2024 Neutrophils/100 WBC (Bld) 60.5 % 47-70 [facility] Platelet countOrdered By: Cecilia Henderson on 08-17-2024 Platelets (Bld) [#/Vol] 235 10*3/uL 150-450 [facility] Potassium measurement (mass/ volume)Ordered By: Nikia Henderson on 08-17-2024 Potassium (Unsp spec) [Mass/Vol] 3.9 mmol/L 3.3-5.1 [facility] RBC Auto (Bld) [#/Vol]Ordere d By: Nikia Henderson on 08-17-2024 RBC (Bld) [#/Vol] 3.37 10*6/uL Low 4.2-5.4 [facility] Serum creatinine measurement (mass/volume)Ordered By: Nikia Henderson on 08-17-2024 Creatinine [Mass/Vol] 0.66 mg/dL Low 0.70-1.20 [facility] Serum glucose measurement (m ass/volume)Ordered By: Nikia Henderson on 08-17-2024 Glucose [Mass/Vol] 84 mg/dL 70-99 [facility] Serum or plasma calcium gianluca urement (mass/volume)Ordered By: Nikia Henderson on 08-17-2024 Calcium [Mass/Vol] 9.1 mg/dL 7.6-11.0 [facility] Serum or plasma urea nitroge n measurement (mass/volume)Ordered By: Nikia Henderson on 08-17-2024 Urea nitrogen [Mass/Vol] 14 mg/dL 4-19 [facility] Sodium levelOrdered By: Catalina connerling Beatriz on 08-17-2024 Sodium [Moles/Vol] 143 mmol/L 133-145 [facility] White blood cell (WBC) count Ordered By: Nikia Henderson on 08-17-2024 WBC (Bld) [#/Vol] 5.8 10*3/uL 4.4-11.0 [facility] CNOVon 08-13-2024 CNOV Office Visit (SPNSMN ) LIZETTE DAVIES ([id number]) 1945 F Date Time Provider Department 08/13/24 8:00 AM [facility] CHOWDARY SPNSMN During your visit today, we recorded the following information about you: Pulse Respiration Blood pressure Weight 98/minute 18/minute 148/103 68 kg Height 1.473 m Seth Chowdary MD 08/13/2024 8:45 AM Signed SPINE SURGERY OUTPATIENT CONSULT This is an in-person visit. SERVICE DATE: 08/13/2024 PCP: Michael Snowden MD REFERRING PROVIDER: Jovanni Matthew [address] [facility] [id number] Lizette Davies is a 78 year old female presenting sibling. CHIEF COMPLAINT: Back and leg pain pain HISTORY OF PRESENT ILLNESS 78-year-old female with a history of sarcoidosis presenting with worsening back pain. She is accompanied by her two sisters, who provide additional history. Chaparrita reports a longstanding history of back pain, which significantly worsened around March of this year. She also experiences neck pain, though it is less severe than the back pain. She has been diagnosed with sarcoidosis identified after a lung biopsy. She does not complain of shortness of breath or other symptoms related to sarcoidosis. She reports numbness in her legs, feet, and hands, and experiences pain in her right leg, with less severe pain in the left leg. She does not endorse arm pain. She is able to walk with a walker but has not walked recently and currently resides in a fdc facility. She does not report bowel or bladder dysfunction, though she occasionally experiences constipation due to oxycodone use. In March, she was hospitalized for six weeks due to back pain and received an epidural injection, which provided relief for 6-8 weeks. She is currently managing her pain with a lidocaine patch, oxycodone 3-4 times daily, Tylenol every six hours, and baclofen. She rates her current pain as 5/10, increasing to 7/10 with movement and occasionally reaching 10/10. She has not tried gabapentin or Lyrica. She has a history of osteopenia, identified on a DEXA scan, and is not currently on medication for this condition. She also has a heart murmur but does not have diabetes or other lung diseases. PREVIOUS CONSERVATIVE TREATMENTS: -Lidocaine TD -Oxycodone 5mg IR q4 hr prn (3-4/day) -Tylenol 500 q 6hrs -Baclofen PREVIOUS SPINAL SURGERY: None REVIEW OF SYSTEMS: Neck: (+) neck pain, (-) arm pain Respiratory: (-) shortness of breath Gastrointestinal: (-) bowel dysfunction Genitourinary: (-) bladder dysfunction Musculoskeletal: (+) back pain, (+) right leg pain Neurological: (+) bilateral hand numbness, (+) bilateral foot numbness, (+) difficulty walking ACTIVE PROBLEM LIST Essential Hypertension Malaise and Fatigue Internal Hemorrhoids Without Mention of Complication Hemorrhage of Gastrointestinal Tract, Unspecified Myalgia and Myositis, Unspecified Congenital Pes Planus Tibialis Tendinitis Generalized Osteoarthrosis, Unspecified Site Contact Dermatitis and Other Eczema, Due to Unspecified Cause Low Back Pain Numbness and Tingling in Hands Spinal Cord Lesion (Hcc) Neck Pain Gait Instability Myelopathy (Hcc) Closed Spondylolysis Fracture of Lumbar Vertebra Spondylolisthesis, Grade 3 Abnormality of Gait Muscle Weakness (Generalized) Angioedema Special Screening for Malignant Neoplasms, Colon Gastroparesis Ischial Bursitis of Right Side Sarcoidosis Balance Problem Chronic Cholecystitis With Calculus Chronic Right-Sided Low Back Pain With Right-Sided Sciatica Sacroiliac Pain PAST MEDICAL HISTORY Diagnosis Date Blood type O+ Compression fracture of thoracic vertebra ([facility]) DDD (degenerative disc disease), cervical MRI scanned into [facility] January 11, 2014 ([facility]) DDD (degenerative disc disease), lumbosacral Essential hypertension, benign Dr. Daniels Gastroparesis Mild to moderate--test done 09/2014 Generalized OA Heart attack (HCC) Hemorrhage of gastrointestinal tract 01/2015 EGD huge ulcer 01/2015 all cleared 03/2015, Edis Angeles MD Hemorrhage of gastrointestinal tract, unspecified 03/08/2005 Internal hemorrhoids without mention of complication 03/08/2005 Morbid obesity with BMI of 40.0-44.9, adult (HCC) Sarcoidosis SCC (squamous cell carcinoma), leg 09/28/[address] Joe Dhillon on left goodwin Snoring Unspecified constipation 03/08/2005 PAST SURGICAL HISTORY Procedure Laterality Date ARTHRP KNE CONDYLEANDPLATU MEDIALANDLAT COMPARTMENTS 11/05/2004 Knee replacement, total left ARTHRP KNE CONDYLEANDPLATU MEDIALANDLAT COMPARTMENTS 07/2010 right knee COLONOSCOPY FLX DX W/COLLJ SPEC WHEN PFRMD 11/24/2000 Colonoscopy COLONOSCOPY FLX DX W/COLLJ SPEC WHEN PFRMD 10/06/2014 Colonoscopy ESOPHAGOGASTRODUODENO SCOPY TRANSORAL DIAGNOSTIC 12/31/13 EGD ESOPHAGOGASTRODUODENO SCOPY TRANSORAL DIAGNOSTIC 02/16/15 (more content not included)... Normal [facility] Absolute lymphocyte countOrd ered By: Nikia Henderson on 08-10-2024 Lymphocytes Auto (Unsp spec) [#/Vol] 1.61 10*3/uL 0.83-4.51 [facility] Anion gap in Serum or Plasma Ordered By: Nikia Henderson on 08-10-2024 Anion gap [Moles/Vol] 10 mmol/L 5-15 [facility] Automated lymphocyte count a s percentage of total leukocytesOrdered By: Nikia Henderson on 08-10-2024 Lymphocytes/100 WBC Auto (Unsp spec) 28.1 % 19-41 [facility] BUN/creatinine ratioOrdered By: Nikia Henderson on 08-10-2024 Urea nitrogen/Creatinine [Mass ratio] 19.5 mg/mg 10-20 [facility] Basophil percentageOrdered B y: Nikia Henderson on 08-10-2024 Basophils/100 WBC (Bld) 0.9 % 0-1 [facility] Carbon dioxide, total [Moles /volume] in Central venous bloodOrdered By: Nikia Henderson on 08-10-2024 CO2 [Moles/Vol] 24.9 mmol/L 21.0-32.0 [facility] Chloride assayOrdered By: Cecilia eHnderson on 08-10-2024 Chloride [Moles/Vol] 106 mmol/L 98-108 [facility] Eosinophil percentageOrdered By: Nikia Henderson on 08-10-2024 Eosinophils/100 WBC (Bld) 3.0 % 0-5 [facility] Erythrocyte distribution wid th ratioOrdered By: Nikia Henderson on 08-10-2024 Erythrocyte distribution width (RBC) [Ratio] 13.6 % 11.6-14.6 [facility] Erythrocyte distribution wid th standard deviationOrdered By: Nikia Henderson on 08-10-2024 Erythrocyte distribution width (RBC) [Ratio] 51.5 fl High 35.1-43.9 [facility] Glomerular filtration rate ( GFR) estimation/1.73 sq m using serum, plasma, or whole bOrdered By: laura Henderson on 08-10-2024 GFR/1.73 sq M.predicted among non-blacks MDRD (S/P/Bld) [Vol rate/Area] 92 mL/min/{1.73_m2} >60 [facility] Hematocrit Auto (Bld) [Volum e fraction]Ordered By: [facility] Berrienheladio Henderson on 08-10-2024 Hematocrit (Bld) [Volume fraction] 35.1 % Low 37-47 [facility] Hemoglobin measurementOrdere d By: laura Henderson on 08-10-2024 Hemoglobin (Bld) [Mass/Vol] 11.3 g/dL Low 12.0-15. 0 [facility] Immature granulocytes/100 WB C Auto (Bld)Ordered By: guanakochokoloskeeheladio Henderson on 08-10-2024 Immature granulocytes/100 WBC (Bld) 0.200 % 0.0-0.9 [facility] MCV (mean corpuscular volume ) determinationOrdered By: Nikia Henderson on 08-10-2024 MCV (RBC) [Entitic vol] 103.2 fL High 81-99 [facility] Mean corpuscular hemoglobin (MCH) determinationOrdered By: [facility] Cristobalvioletta 08-10-2024 MCH (RBC) [Entitic mass] 33.2 pg High 27.0-32.0 [facility] Monocyte percentageOrdered B y: guanakochokoloskeeheladio Henderson on 08-10-2024 Monocytes/100 WBC (Bld) 9.3 % 0-10 [facility] Neutrophil percentageOrdered By: [facility] Cristobalvioletta on 08-10-2024 Neutrophils/100 WBC (Bld) 58.5 % 47-70 [facility] Platelet countOrdered By: laura Jainvioletta on 08-10-2024 Platelets (Bld) [#/Vol] 233 10*3/uL 150-450 [facility] Potassium measurement (mass/ volume)Ordered By: Cecilialaura Henderson on 08-10-2024 Potassium (Unsp spec) [Mass/Vol] 4.0 mmol/L 3.3-5.1 [facility] RBC Auto (Bld) [#/Vol]Ordere d By: Onelheladio Jainjanicevioletta on 08-10-2024 RBC (Bld) [#/Vol] 3.40 10*6/uL Low 4.2-5.4 [facility] Serum creatinine measurement (mass/volume)Ordered By: Cecilialaura Henderson on 08-10-2024 Creatinine [Mass/Vol] 0.59 mg/dL Low 0.70-1.20 [facility] Serum glucose measurement (m ass/volume)Ordered By: Nikia Henderson on 08-10-2024 Glucose [Mass/Vol] 80 mg/dL 70-99 [facility] Serum or plasma calcium gianluca urement (mass/volume)Ordered By: Cecilialaura Jainjanicevioletta on 08-10-2024 Calcium [Mass/Vol] 9.0 mg/dL 7.6-11.0 [facility] Serum or plasma urea nitroge n measurement (mass/volume)Ordered By: Ceciliaguanakofedeheladio Jainjanicevioletta on 08-10-2024 Urea nitrogen [Mass/Vol] 11 mg/dL 4-19 [facility] Sodium levelOrdered By: Catalina ellison Cristobaljanicevioletta on 08-10-2024 Sodium [Moles/Vol] 141 mmol/L 133-145 [facility] White blood cell (WBC) count Ordered By: Nikia Henderson on 08-10-2024 WBC (Bld) [#/Vol] 5.7 10*3/uL 4.4-11.0 [facility] Absolute lymphocyte countOrd ered By: Audra Drake on 08-03-2024 Lymphocytes Auto (Unsp spec) [#/Vol] 1.37 10*3/uL 0.83-4.51 [facility] Anion gap in Serum or Plasma Ordered By: Audra Drake on 08-03-2024 Anion gap [Moles/Vol] 8 mmol/L 5-15 [facility] Automated lymphocyte count a s percentage of total leukocytesOrdered By: Audra Drake on 08-03-2024 Lymphocytes/100 WBC Auto (Unsp spec) 23.5 % 19-41 [facility] BUN/creatinine ratioOrdered By: Audra Drake on 08-03-2024 Urea nitrogen/Creatinine [Mass ratio] 18.8 mg/mg 10-20 [facility] Basophil percentageOrdered B y: Audra Drake on 08-03-2024 Basophils/100 WBC (Bld) 0.9 % 0-1 [facility] Bilirubin directOrdered By: Audra Drake on 08-03-2024 Bilirubin.direct [Mass/Vol] 0.10 mg/dL 0.00-0.3 0 [facility] Bilirubin, totalOrdered By: Audra Drake on 08-03-2024 Bilirubin [Mass/Vol] 0.17 mg/dL 0.00-1.30 [facility] Carbon dioxide, total [Moles /volume] in Central venous bloodOrdered By: Audra Drake on 08-03-2024 CO2 [Moles/Vol] 24.9 mmol/L 21.0-32.0 [facility] Chloride assayOrdered By: Dimitris Drake on 08-03-2024 Chloride [Moles/Vol] 107 mmol/L 98-108 [facility] Eosinophil percentageOrdered By: Audra Drake on 08-03-2024 Eosinophils/100 WBC (Bld) 2.6 % 0-5 [facility] Erythrocyte distribution wid th ratioOrdered By: Audra Drake on 08-03-2024 Erythrocyte distribution width (RBC) [Ratio] 13.9 % 11.6-14.6 [facility] Erythrocyte distribution wid th standard deviationOrdered By: Audra Drake on 08-03-2024 Erythrocyte distribution width (RBC) [Ratio] 52.4 fl High 35.1-43.9 [facility] Folate [Moles/volume] in Ser um or PlasmaOrdered By: Audra Drake on 08-03-2024 Folate [Moles/Vol] 36.80 ng/mL High 4.60-34.80 [facility] Glomerular filtration rate ( GFR) estimation/1.73 sq m using serum, plasma, or whole bOrdered By: Audra Drake on 08-03-2024 GFR/1.73 sq M.predicted among non-blacks MDRD (S/P/Bld) [Vol rate/Area] 87 mL/min/{1.73_m2} >60 [facility] Hematocrit Auto (Bld) [Volum e fraction]Ordered By: Audra Drake on 08-03-2024 Hematocrit (Bld) [Volume fraction] 33.6 % Low 37-47 [facility] Hemoglobin measurementOrdere d By: Audra Drake on 08-03-2024 Hemoglobin (Bld) [Mass/Vol] 11.0 g/dL Low 12.0-15. 0 [facility] Immature granulocytes/100 WB C Auto (Bld)Ordered By: Audra Drake on 08-03-2024 Immature granulocytes/100 WBC (Bld) 0.300 % 0.0-0.9 [facility] MCV (mean corpuscular volume ) determinationOrdered By: Audra Drake on 08-03-2024 MCV (RBC) [Entitic vol] 103.7 fL High 81-99 [facility] Magnesium measurement (mass/ volume)Ordered By: Audra Drake on 08-03-2024 Magnesium (Unsp spec) [Mass/Vol] 2.3 mg/dL High 1.5-2.2 [facility] Mean corpuscular hemoglobin (MCH) determinationOrdered By: Audra Drake on 08-03-2024 MCH (RBC) [Entitic mass] 34.0 pg High 27.0-32.0 [facility] Monocyte percentageOrdered B y: Audra Drake on 08-03-2024 Monocytes/100 WBC (Bld) 10.3 % High 0-10 [facility] Neutrophil percentageOrdered By: Audra Drake on 08-03-2024 Neutrophils/100 WBC (Bld) 62.4 % 47-70 [facility] No Panel InformationOrdered By: Audra Drake on 08-03-2024 21 U/L <32 [facility] Platelet countOrdered By: Dimitris Drake on 08-03-2024 Platelets (Bld) [#/Vol] 243 10*3/uL 150-450 [facility] Potassium measurement (mass/ volume)Ordered By: Audra Drake on 08-03-2024 Potassium (Unsp spec) [Mass/Vol] 4.4 mmol/L 3.3-5.1 [facility] RBC Auto (Bld) [#/Vol]Ordere d By: Adura Drake on 08-03-2024 RBC (Bld) [#/Vol] 3.24 10*6/uL Low 4.2-5.4 [facility] Serum creatinine measurement (mass/volume)Ordered By: Audra Drake on 08-03-2024 Creatinine [Mass/Vol] 0.71 mg/dL 0.70-1.20 [facility] Serum globulin measurementOr dered By: Audra rDake on 08-03-2024 Globulin (S) [Mass/Vol] 3.0 g/dL 2.2-4.2 [facility] Serum glucose measurement (m ass/volume)Ordered By: Audra Drake on 08-03-2024 Glucose [Mass/Vol] 89 mg/dL 70-99 [facility] Serum or plasma alanine kim otransferase (ALT) measurementOrdered By: Audra Drake on 08-03-2024 ALT [Catalytic activity/Vol] 15 U/L <35 [facility] Serum or plasma albumin gianluca urement (mass/volume)Ordered By: Audra Drake on 08-03-2024 Albumin [Mass/Vol] 3.2 g/dL Low 3.4-4.8 [facility] Serum or plasma alkaline nikole sphatase measurementOrdered By: Audra Drake on 08-03-2024 ALP [Catalytic activity/Vol] 85 U/L 35-104 [facility] Serum or plasma calcium gianluca urement (mass/volume)Ordered By: Audra Drake on 08-03-2024 Calcium [Mass/Vol] 8.8 mg/dL 7.6-11.0 [facility] Serum or plasma urea nitroge n measurement (mass/volume)Ordered By: Audra Drake on 08-03-2024 Urea nitrogen [Mass/Vol] 13 mg/dL 4-19 [facility] Sodium levelOrdered By: Cony Drake on 08-03-2024 Sodium [Moles/Vol] 140 mmol/L 133-145 [facility] Total proteinOrdered By: Rubin Drake on 08-03-2024 Protein [Mass/Vol] 6.2 g/dL 5.9-8.4 [facility] Vitamin B12 ser/plasOrdered By: Audra Drake on 08-03-2024 Cobalamin (Vitamin B12) [Mass/Vol] 1509 pg/mL High 180-914 [facility] White blood cell (WBC) count Ordered By: Audra Drake on 08-03-2024 WBC (Bld) [#/Vol] 5.8 10*3/uL 4.4-11.0 [facility] Absolute lymphocyte countOrd ered By: Audra Drake on 07-27-2024 Lymphocytes Auto (Unsp spec) [#/Vol] 1.57 10*3/uL 0.83-4.51 [facility] Anion gap in Serum or Plasma Ordered By: Audra Drake on 07-27-2024 Anion gap [Moles/Vol] 9 mmol/L 5-15 [facility] Automated lymphocyte count a s percentage of total leukocytesOrdered By: Audra Drake on 07-27-2024 Lymphocytes/100 WBC Auto (Unsp spec) 26.8 % 19-41 [facility] BUN/creatinine ratioOrdered By: Audra Drake on 07-27-2024 Urea nitrogen/Creatinine [Mass ratio] 19.1 mg/mg 10-20 [facility] Basophil percentageOrdered B y: Audra Drake on 07-27-2024 Basophils/100 WBC (Bld) 0.7 % 0-1 [facility] Carbon dioxide, total [Moles /volume] in Central venous bloodOrdered By: Audra Drake on 07-27-2024 CO2 [Moles/Vol] 24.8 mmol/L 21.0-32.0 [facility] Chloride assayOrdered By: Dimitris Drake on 07-27-2024 Chloride [Moles/Vol] 106 mmol/L 98-108 [facility] Eosinophil percentageOrdered By: Audra Drake on 07-27-2024 Eosinophils/100 WBC (Bld) 2.4 % 0-5 [facility] Erythrocyte distribution wid th ratioOrdered By: Audra Drake on 07-27-2024 Erythrocyte distribution width (RBC) [Ratio] 14.1 % 11.6-14.6 [facility] Erythrocyte distribution wid th standard deviationOrdered By: Audra Drake on 07-27-2024 Erythrocyte distribution width (RBC) [Ratio] 53.5 fl High 35.1-43.9 [facility] Glomerular filtration rate ( GFR) estimation/1.73 sq m using serum, plasma, or whole bOrdered By: Audra Drake on 07-27-2024 GFR/1.73 sq M.predicted among non-blacks MDRD (S/P/Bld) [Vol rate/Area] 90 mL/min/{1.73_m2} >60 [facility] Hematocrit Auto (Bld) [Volum e fraction]Ordered By: Audra Drake on 07-27-2024 Hematocrit (Bld) [Volume fraction] 33.1 % Low 37-47 [facility] Hemoglobin measurementOrdere d By: Audra Drake on 07-27-2024 Hemoglobin (Bld) [Mass/Vol] 11.0 g/dL Low 12.0-15. 0 [facility] Immature granulocytes/100 WB C Auto (Bld)Ordered By: Audra Drake on 07-27-2024 Immature granulocytes/100 WBC (Bld) 0.500 % 0.0-0.9 [facility] MCV (mean corpuscular volume ) determinationOrdered By: Audra Drake on 07-27-2024 MCV (RBC) [Entitic vol] 103.4 fL High 81-99 [facility] Mean corpuscular hemoglobin (MCH) determinationOrdered By: Audra Drake on 07-27-2024 MCH (RBC) [Entitic mass] 34.4 pg High 27.0-32.0 [facility] Monocyte percentageOrdered B y: Audra Drake on 07-27-2024 Monocytes/100 WBC (Bld) 10.4 % High 0-10 [facility] Neutrophil percentageOrdered By: Audra Drake on 07-27-2024 Neutrophils/100 WBC (Bld) 59.2 % 47-70 [facility] Platelet countOrdered By: Dimitris Drake on 07-27-2024 Platelets (Bld) [#/Vol] 282 10*3/uL 150-450 [facility] Potassium measurement (mass/ volume)Ordered By: Audra Drake on 07-27-2024 Potassium (Unsp spec) [Mass/Vol] 4.3 mmol/L 3.3-5.1 [facility] RBC Auto (Bld) [#/Vol]Ordere d By: Audra Drake on 07-27-2024 RBC (Bld) [#/Vol] 3.20 10*6/uL Low 4.2-5.4 [facility] Serum creatinine measurement (mass/volume)Ordered By: Audra Drake on 07-27-2024 Creatinine [Mass/Vol] 0.65 mg/dL Low 0.70-1.20 [facility] Serum glucose measurement (m ass/volume)Ordered By: Audra Drake on 07-27-2024 Glucose [Mass/Vol] 90 mg/dL 70-99 [facility] Serum or plasma calcium gianluca urement (mass/volume)Ordered By: Audra Drake on 07-27-2024 Calcium [Mass/Vol] 8.9 mg/dL 7.6-11.0 [facility] Serum or plasma urea nitroge n measurement (mass/volume)Ordered By: Audra Drake on 07-27-2024 Urea nitrogen [Mass/Vol] 12 mg/dL 4-19 [facility] Sodium levelOrdered By: Cony Drake on 07-27-2024 Sodium [Moles/Vol] 140 mmol/L 133-145 [facility] White blood cell (WBC) count Ordered By: Audra Drake on 07-27-2024 WBC (Bld) [#/Vol] 5.9 10*3/uL 4.4-11.0 [facility] CNPNon 07-22-2024 CNPN Telephone (ENDOMN) LIZETTE DAVIES ([id number]) 1945 F Date Time Provider Department 07/22/24 AJAY GRANT ENDOMN During your visit today, we recorded the following information about you: Allergies As of Date: 07/22/2024 Noted Allergy Reaction LISINOPRIL 01/23/2012 7 - Swelling 10 - Anaphylaxis Comments: Face, mouth, and tongue. ALENDRONATE SODIUM 08/11/2017 8 - GI Upset CARDURA (DOXAZOSIN) 07/21/2024 14 - Other: See Comments CODEINE 11/01/2008 5 - Intolerance Comments: Headache FOSAMAX (ALENDRONATE) 04/19/2014 14 - Other: See Comments Comments: GI upset HYDROCHLOROTHIAZIDE 07/21/2024 14 - Other: See Comments IBUPROFEN 03/08/2005 8 - GI Upset Comments: Epigastric pain. In higher dose. LIPITOR (ATORVASTATIN) 07/05/2015 5 - Intolerance Comments: complained of weakness of legs NIFEDIPINE 07/21/2024 14 - Other: See Comments Date Reviewed: 07/21/2024 Reviewed by: Millie Petty MD - Fully Assessed Primary Visit Diagnosis:Age-related osteoporosis with current pathological fracture, initial encounter [M80.00XA] Other Visit Diagnosis:History of vertebral compression fracture [Z87.81] Order(s):romosozumab- aqqg (EVENITY) 105 mg/1.17 mL syrg syringeInject 2 syringes subcutaneously once every month.Disp: 2 eachRfl: 11 Prescriptions as of 07/22/2024 - romosozumab-aqqg (EVENITY) 105 mg/1.17 mL syrg syringe Inject 2 syringes subcutaneously once every month. - amLODIPine (NORVASC) 2.5 mg tablet Take 2.5 mg by mouth two times a day. - VITAMIN B COMPLEX ORAL once daily. - baclofen 5 mg tablet Take 5 mg by mouth three times a day. - cholecalciferol (VITAMIN D) 1,000 unit tab tablet Take 1,000 Units by mouth once daily. - cyanocobalamin (VITAMIN B-12) 1,000 mcg tab Take 1,000 mcg by mouth once daily. - folic acid 1 mg tablet Take 1 mg by mouth once daily. - magnesium chloride [address] tablet Take 64 mg by mouth once daily. - MAGNESIUM CITRATE ORAL Take 300 mL by mouth as needed. - oxyCODONE ir (OXYIR) 5 mg capsule Take 5 mg by mouth every 4 hours as needed for pain. - lidocaine-menthol 4-4 % ptmd Apply to affected area. on in am and off @ HS - senna-docusate (SENNA PLUS) 8.6-50 mg per tablet Take 1 tablet by mouth once daily. - citalopram hydrobromide (CELEXA) 10 mg tablet Take by mouth once daily. - ondansetron (ZOFRAN) 4 mg tablet Take by mouth every 4 hours as needed for nausea/vomiting. - metoprolol succinate ER (TOPROL XL) 25 mg 24 hr tablet Take 1 tablet by mouth twice daily. (prescribed by Dr. Daniels) - Cholecalciferol, Vitamin D3, (VITAMIN D-3) 5,000 unit tab Take 5,000 Units by mouth once daily. - COMPOUNDED PRESCRIPTION Viki Naehas defense 17 drops daily and working up to 60 drops daily (in divided doses). Serving size 30 drops. 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 Dx: Bilat sprained ankles, gait instability. - acetaminophen (TYLENOL EXTRA STRENGTH) 500 mg tablet Take 1 tablet by mouth every 6 hours as needed for Pain. - Magnesium 250 mg tab Take 1,000 mg by mouth. - MULTIVITAMIN TAB Take one(1) tablet daily. Problem List As Of Date 07/22/2024 Noted Resolved Essential hypertension [I10] 02/06/2005 Malaise and fatigue [R53.81, R53.83] 02/27/2005 Other and unspecified hyperlipidemia [E78.5] 02/27/2005 07/30/2012 INT HEMORRHOID W/O COMPL [K64.8] 03/08/2005 Unspecified constipation [K59.00] 03/08/2005 02/19/2012 GASTROINTEST HEMORR NOS [K92.2] 03/08/2005 MYALGIA AND MYOSITIS NOS [WVQ3153] 09/02/2005 CONGENITAL PES PLANUS [Q66.50] 06/29/2007 Tibialis Tendinitis [M76.829] 10/19/2007 Generalized Osteoarthrosis, Unspecified Site [M*04/05/2008 Contact Dermatitis and Other Eczema, due to Uns*04/05/2008 Morbid obesity with BMI of 40.0-44.9, adult (HC* 01/25/2016 Low back pain [M54.50] 12/14/2013 Numbness and tingling in hands [R20.0, R20.2] 12/14/2013 Spinal cord lesion (HCC) [G95.9] 12/14/2013 Neck pain [M54.2] 12/14/2013 Gait instability [R26.81] 12/14/2013 Myelopathy (HCC) [G95.9] 04/22/2014 Closed spondylolysis fracture of lumbar vertebr*04/22/2014 Spondylolisthesis, grade 3 [M43.10] 04/22/2014 Abnormality of gait [R26.9] 07/07/2014 Muscle weakness (generalized) [M62.81] 07/07/2014 Angioedema [T78.3XXA] 09/26/2014 Special screening for malignant neoplasms, colo*10/06/2014 Gastroparesis [K31.84] Ischial bursitis of right side [M70.71] 04/20/2015 Gastric ulcer without hemorrhage or perforation* 6 05/11/2015 Sarcoidosis (HCC) [D86.9] Balance problem [R26.89] 10/12/2015 Chronic cholecystitis with calculus [K80.10] 11/21/2015 Chronic right-sided low back pain with right-si*05/09/2016 Sacroiliac pain [M53.3] 05/09/2016 Prescriptions ordered this encounter Disp Refills Start End EVENITY 105 MG/1.17 ML SUBCU (more content not included)... Normal [facility] 1,25-dihydroxyvitamin D3 [Ma ss/Vol]on 07-21-2024 VIT D1,25 DIHYDROXY 34.0 pg/mL Normal 19.9-79.3 [facility] Comment on above: Order Comment: Speci men Type: BLOOD SPECIMEN Ordering Facility: [facility] Address: [address] [place] [address] Performed By: #### 1 989-3, 1649-3 #### [facility] CLIA [id number] [address] [place] [address] [place] [address] [place] 25(OH)D3 SerPl-mCncon 2024 25-hydroxyvitamin D3 [Mass/Vol] 65.9 ng/mL Normal 31.0-80.0 [facility] Comment on above: Order Comment: Speci men Type: BLOOD SPECIMEN Ordering Facility: [facility] Address: [address] [place] [address] Result Comment: Clas sification of 25 OH Vitamin D status: Deficiency/Insufficiency: < or = 30 ng/ml. Sufficiency/Optimal Levels: 31-80 ng/mL Toxicity: > 100 ng/mL. Test performed by chemiluminescent immunoassay. Performed By: #### 1 989-3, 1649-3 #### [facility] CLIA [id number] [address] [place] [address] OF [facility] CNOVon 07-21-2024 CNOV Office Visit (ENDOMN ) LIZETTE DAVIES ([id number]) 1945 F Date Time Provider Department 07/21/24 3:00 PM AJAY GRANT ENDOMN During your visit today, we recorded the following information about you: Pulse Blood pressure Weight Height 98/minute 109/75 68 kg 1.473 m Bebo Martinez MA 07/21/2024 2:47 PM Signed Thank you for choosing the [facility] Department of Endocrinology, Diabetes and Metabolism. Did you know that you need to call 48 hours in advance of your scheduled visit, if you are unable to make your appointment? The [facility]inology [facility] thanks you for your commitment, because patients not showing to their appointment results in a lost opportunity for patients to receive world class health care at the [facility]. To Cancel an appointment, please choose one of the following: - Call the Appointment Call Center at [phone] - From [facility], Go to Appointments - Cancel Appts If cancelling, consider your need to reschedule to prevent further delays in your care. To Schedule an appointment, please choose one of the following: - Call the Appointment Call Center at [phone] - From [facility], Go to Appointments - Request an Appt Ajay Grant MD 07/21/2024 3:55 PM Signed REASON OF VISIT: Compression fracture. REFERRING PHYSICIAN: Michael Snowden MD Consultation requested by Dr. Snowden for an opinion regarding osteoporosis. My final recommendations will be communicated back to the requesting physician by way of shared Medical record or letter to requesting physician via [place] mail. HISTORY OF PRESENT ILLNESS: Age: [age] year old with PMH of HTN, sarcoidosis she has back pain started in 04/14/2024, she started on Oxycodone since that time, she had compression fracture, she had epidural injection, then she was able to walk with walker, then the effect of the injection started to wean off. For the last 3 weeks she has sever back pain. She had right ankle fracture. No HX of kidney stone. She is using Vitamin D 5000 international unit(s) daily. REVIEW OF SYSTEMS: Review of Systems Constitutional: Positive for malaise/fatigue. Negative for weight loss. HENT: Negative for congestion, ear discharge, ear pain, nosebleeds and sinus pain. Respiratory: Negative for cough, hemoptysis, sputum production and shortness of breath. Cardiovascular: Negative for chest pain, palpitations, orthopnea, claudication and leg swelling. Gastrointestinal: Negative for abdominal pain, constipation, diarrhea, nausea and vomiting. Genitourinary: Negative for frequency, hematuria and urgency. Musculoskeletal: Positive for back pain and joint pain. Neurological: Negative for tingling, tremors, sensory change and speech change. MEDICATIONS: Current Outpatient Medications on File Prior to Visit Medication Sig amLODIPine (NORVASC) 2.5 mg tablet Take 2.5 mg by mouth two times a day. VITAMIN B COMPLEX ORAL once daily. baclofen 5 mg tablet Take 5 mg by mouth three times a day. cholecalciferol (VITAMIN D) 1,000 unit tab tablet Take 1,000 Units by mouth once daily. cyanocobalamin (VITAMIN B-12) 1,000 mcg tab Take 1,000 mcg by mouth once daily. folic acid 1 mg tablet Take 1 mg by mouth once daily. magnesium chloride [address] tablet Take 64 mg by mouth once daily. MAGNESIUM CITRATE ORAL Take 300 mL by mouth as needed. oxyCODONE ir (OXYIR) 5 mg capsule Take 5 mg by mouth every 4 hours as needed for pain. lidocaine-menthol 4-4 % ptmd Apply to affected area. on in am and off @ HS senna-docusate (SENNA PLUS) 8.6-50 mg per tablet Take 1 tablet by mouth once daily. citalopram hydrobromide (CELEXA) 10 mg tablet Take by mouth once daily. ondansetron (ZOFRAN) 4 mg tablet Take by mouth every 4 hours as needed for nausea/vomiting. metoprolol succinate ER (TOPROL XL) 25 mg 24 hr tablet Take 1 tablet by mouth twice daily. (prescribed by Dr. Daniels) (Patient taking differently: Take 25 mg by mouth two times a day. 12.5mg 2 times per day) Cholecalciferol, Vitamin D3, (VITAMIN D-3) 5,000 unit tab Take 5,000 Units by mouth once daily. (Patient not taking: Reported on 07/21/2024) COMPOUNDED PRESCRIPTION [employer]ol Blue defense 17 drops daily and working up to 60 drops daily (in divided doses). Serving size 30 drops. 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 Dx: Bilat sprained ankles, gait instability. acetaminophen (TYLENOL EXTRA STRENGTH) 500 mg tablet Take 1 tablet by mouth every 6 hours as needed for Pain. Magnesium 250 mg tab Take 1,000 mg by mouth. (Patient not taking: Reported on 07/21/2024) MULTIVITAMIN TAB Take one(1) tablet daily. (Patient not taking: Reported on 07/21/2024) No current fa (more content not included)... Normal [facility] Office Visit (REMS31 ) LIZETTE DAVIES ([id number]) 1945 F Date Time Provider Department 07/21/24 12:40 PM JOVANNI MATTHEW1 During your visit today, we recorded the following information about you: Pulse Blood pressure Weight Height 98/minute 109/75 68 kg 1.473 m Jovanni Matthew MD 07/21/2024 2:05 PM Signed Physical Medicine and Rehabilitation New patient July 21, 2024 SUBJECTIVE HISTORY OF PRESENT ILLNESS: Lizette Davies is a 78 year old woman evaluated for back pain and concerns if needs for spine fusion/decompression Chronic back pain but right before Thanksgiving fell with worsening LBP. With eventual went to ER- there given morphine and did help but then Mele admitted for ongoing pain- was then d/lalo to SNF Given ? MARCELL 04/14/24 Then had f/u with pain management last 07/06/24- rec for [facility] spine surgery eval, but on my schedule On review of imaging with : L5S1 gr3 listhesis 03/2024 On review from 2013 lumbar xr was gr 2 By 11/13/23- this was worsened to gr 3 In transitional care- ECF - PT stopped at [facility]. Can walk some with walker- about 30 ' SBA ? Leg weakness N/T- baseline- feet and hands Legs- in knees down B/B cruz - feels but has urine incontinence Bowel cruz continent Pain 6-8/10 LS jxn upper buttock and achy On lidocaine TD, oxy 5mg IR q4h prn - typically 3-4 tabs a day, tylenol 500mg q6 hr prn, baclofen 5mg tid No AEDs/SNRIs for pain control Celexa- on MAY but she is not sure she is taking. Worse with walking Better with sitting, pain medication Patient Entered Questionnaires PROMIS Score Percentiles 06/12/2016 06/14/2016 11/01/2016 PROMIS Global Health Scale Physical Health Percentile 7 22* 10 Mental Health Percentile 13 9 26* Percentiles provide an indication of how the patient's score ranks in relation to the general population. Higher percentile rankings indicate better function/quality of life. 50th percentile is the average of the general population and indicates half of respondents had a worse score. Depression Screenin12/09/2014 02/20/2015 07/27/2015 PHQ-9 Score 5 7 5 12/09/2014 02/20/2015 07/27/2015 PHQ-9 Self-harm Question Question 9 Not at all Not at all Not at all PHQ-9 Self-Harm (Item 9) response options: 0 Not at all 1 Several days 2 More than half the days 3 Nearly every day PHQ-9 Levels: 0-4 No - mild depression 5-9 Mild depression 10-14 Moderate depression 15-19 Moderately severe depression 20-27 Severe depression ACTIVE PROBLEM LIST Essential Hypertension Malaise and Fatigue Internal Hemorrhoids Without Mention of Complication Hemorrhage of Gastrointestinal Tract, Unspecified Myalgia and Myositis, Unspecified Congenital Pes Planus Tibialis Tendinitis Generalized Osteoarthrosis, Unspecified Site Contact Dermatitis and Other Eczema, Due to Unspecified Cause Low Back Pain Numbness and Tingling in Hands Spinal Cord Lesion (Hcc) Neck Pain Gait Instability Myelopathy (Hcc) Closed Spondylolysis Fracture of Lumbar Vertebra Spondylolisthesis, Grade 3 Abnormality of Gait Muscle Weakness (Generalized) Angioedema Special Screening for Malignant Neoplasms, Colon Gastroparesis Ischial Bursitis of Right Side Sarcoidosis Balance Problem Chronic Cholecystitis With Calculus Chronic Right-Sided Low Back Pain With Right-Sided Sciatica Sacroiliac Pain PAST MEDICAL HISTORY Diagnosis Date Blood type O+ Compression fracture of thoracic vertebra (HCC) DDD (degenerative disc disease), cervical MRI scanned into [facility] January 11, 2014 ([facility]) DDD (degenerative disc disease), lumbosacral Essential hypertension, benign Dr. Daniels Gastroparesis Mild to moderate--test done 09/2014 Generalized OA Heart attack (HCC) Hemorrhage of gastrointestinal tract 01/2015 EGD huge ulcer 01/2015 all cleared 03/2015, Edis Angeles MD Hemorrhage of gastrointestinal tract, unspecified 03/08/2005 Internal hemorrhoids without mention of complication 03/08/2005 Morbid obesity with BMI of 40.0-44.9, adult (HCC) Sarcoidosis SCC (squamous cell carcinoma), leg 09/28/[address] Joe Dhillon on left goodwin Snoring Unspecified constipation 03/08/2005 PAST SURGICAL HISTORY Procedure Laterality Date ARTHRP KNE CONDYLEANDPLATU MEDIALANDLAT COMPARTMENTS 11/05/2004 Knee replacement, total left ARTHRP KNE CONDYLEANDPLATU MEDIALANDLAT COMPARTMENTS 07/2010 right knee COLONOSCOPY FLX DX W/COLLJ SPEC WHEN PFRMD 11/24/2000 Colonoscopy COLONOSCOPY FLX DX W/COLLJ SPEC WHEN PFRMD 10/06/2014 Colonoscopy ESOPHAGOGASTRODUODENO SCOPY TRANSORAL DIAGNOSTIC 12/31/13 EGD ESOPHAGOGASTRODUODENO SCOPY TRANSORAL DIAGNOSTIC 02/16/15 EGD WC inpt ESOPHAGOGASTRODUODENO SCOPY TRANSORAL DIAGNOSTIC 05/11/15 EGD EXTRACTION, ERUPTED TOOTH OR EXPOSED ROOT (ELEVATION AND/OR FORCEPS REMOVAL) 1970's Wi (more content not included)... Normal [facility] Comprehensive metabolic 2000 panelon 07-21-2024 Albumin [Mass/Vol] 3.9 g/dL Normal 3.9-4.9 [facility] Comment on above: Order Comment: Speci men Type: BLOOD SPECIMEN Ordering Facility: [facility] Address: [address] [place] [address] Performed By: #### 3 016-3, 97339-0, 27709-28, 8 #### [facility] CLIA [id number] [address] [place] [address] [place] ALP [Catalytic activity/Vol] 108 U/L Normal 34-123 [facility] Comment on above: Order Comment: Speci men Type: BLOOD SPECIMEN Ordering Facility: [facility] Address: [address] [place] [address] Performed By: #### 3 016-3, 24850-2, 27709-28, 8 #### [facility] CLIA [id number] [address] [place] [address] [place] ALT [Catalytic activity/Vol] 13 U/L Normal 7-38 [facility] Comment on above: Order Comment: Speci men Type: BLOOD SPECIMEN Ordering Facility: [facility] Address: [address] [place] [address] Performed By: #### 3 016-3, 26705-2, 277-1, 8 #### [facility] CLIA [id number] [address] [place], [place] [address] [place] Anion gap [Moles/Vol] 14 mmol/L Normal 8-15 [facility] Comment on above: Order Comment: Speci men Type: BLOOD SPECIMEN Ordering Facility: [facility] Address: [address] [place] [address] Performed By: #### 3 016-3, 95586-3, 277-1, 8 #### [facility] CLIA [id number] [address] [place], [place] [address] [place] AST [Catalytic activity/Vol] 19 U/L Normal 13-35 [facility] Comment on above: Order Comment: Speci men Type: BLOOD SPECIMEN Ordering Facility: [facility] Address: [address] [place] [address] Performed By: #### 3 016-3, 18200-7, 277-1, 8 #### [facility] CLIA [id number] [address] [place] [address] [place] Bilirubin [Mass/Vol] 0.3 mg/dL Normal 0.2-1.3 [facility] Comment on above: Order Comment: Speci men Type: BLOOD SPECIMEN Ordering Facility: [facility] Address: [address] [place] [address] Performed By: #### 3 016-3, 37111-8, 277-1, 8 #### [facility] CLIA [id number] [address] [place], [place] [address] [place] Calcium [Mass/Vol] 9.6 mg/dL Normal 8.5-10.2 [facility] Comment on above: Order Comment: Speci men Type: BLOOD SPECIMEN Ordering Facility: [facility] Address: [address] [place] [address] Performed By: #### 3 016-3, 43679-0, 277-1, 2730-8 #### [facility] CLIA [id number] [address] [place] [address] [place] Chloride [Moles/Vol] 100 mmol/L Normal 98-107 [facility] Comment on above: Order Comment: Speci men Type: BLOOD SPECIMEN Ordering Facility: [facility] Address: [address] [place] [address] Performed By: #### 3 016-3, 00721-9, 277-1, 8 #### [facility] CLIA [id number] [address] [place] [address] [place] CO2 [Moles/Vol] 25 mmol/L Normal 22-30 [facility] Comment on above: Order Comment: Speci men Type: BLOOD SPECIMEN Ordering Facility: [facility] Address: [address] [place] [address] Performed By: #### 3 016-3, 59211-6, 277-1, 8 #### [facility] CLIA [id number] [address] [place] [address] [place] Creatinine [Mass/Vol] 0.79 mg/dL Normal 0.58-0.96 [facility] Comment on above: Order Comment: Speci men Type: BLOOD SPECIMEN Ordering Facility: [facility] Address: [address] [place] [address] Performed By: #### 3 016-3, 66023-2, 277-1, 8 #### [facility] CLIA [id number] [address] [place] [address] [place] Creatinine and Glomerular filtration rate.predicted panel (S/P/Bld) 77 mL/min/1.73m??? Normal >=60 [facility] Comment on above: Order Comment: Speci men Type: BLOOD SPECIMEN Ordering Facility: [facility] Address: [address] [place] [address] Result Comment: Brigida mated Glomerular Filtration Rate (eGFR) is calculated using the 2020 CKD-EPI creatinine equation. This equation utilizes serum creatinine, sex, and age as parameters. The creatinine assay has traceable calibration to isotope dilution-mass spectrometry. Refer to KDIGO guidelines for clinical interpretation. In patients with unstable renal function, e.g. those with acute kidney injury, the eGFR may not accurately reflect actual GFR. Performed By: #### 3 016-3, 29993-5, 2776-03, 2730-10 #### [facility] CLIA [id number] [address] [place] [address] [place] Glucose [Mass/Vol] 97 mg/dL Normal 74-99 [facility] Comment on above: Order Comment: Iwona pedro Type: BLOOD SPECIMEN Ordering Facility: [facility] Address: [address] [place] [address] Result Comment: The [place] [employer] (ADA) provides guidance for cutoff values for fasting glucose and random glucose. The ADA defines fasting as no caloric intake for at least 8 hours. Fasting plasma glucose results between 100 to 125 [...] Standards of Medical Care in Diabetes 2016, [place] [employer]. Diabetes Care. 2016.39(Suppl 1). Performed By: #### 3 016-3, 95995-2, 2776-03, 2730-10 #### [facility] CLIA [id number] [address] [place] [address] [place] Potassium [Moles/Vol] 5.1 mmol/L Normal 3.7-5.1 [facility] Comment on above: Order Comment: Iwona pedro Type: BLOOD SPECIMEN Ordering Facility: [facility] Address: [address] [place], [place] [address] Performed By: #### 3 016-3, 43454-6, 2776-03, 2730-10 #### [facility] CLIA [id number] [address] [place], [place] [address] [place] Protein [Mass/Vol] 7.0 g/dL Normal 6.3-8.0 [facility] Comment on above: Order Comment: Speci men Type: BLOOD SPECIMEN Ordering Facility: [facility] Address: [address] [place] [address] Performed By: #### 3 016-3, 52499-0, 277-1, 8 #### [facility] CLIA [id number] [address] [place], [place] [address] [place] Sodium [Moles/Vol] 139 mmol/L Normal 136-144 [facility] Comment on above: Order Comment: Speci men Type: BLOOD SPECIMEN Ordering Facility: [facility] Address: [address] [place] [address] Performed By: #### 3 016-3, 51588-4, 277-1, 2730-10 #### [facility] CLIA [id number] [address] [place] [address] [place] Urea nitrogen [Mass/Vol] 14 mg/dL Normal 7-21 [facility] Comment on above: Order Comment: Speci men Type: BLOOD SPECIMEN Ordering Facility: [facility] Address: [address] [place] [address] Performed By: #### 3 016-3, 45217-3, 277-1, 8 #### [facility] CLIA [id number] [address] [place], [place] [address] [place] PTH-Intact SerPl-mCncon 04-2 Parathyrin.intact [Mass/Vol] 20 pg/mL Normal 15-65 [facility] Comment on above: Order Comment: Speci men Type: BLOOD SPECIMEN Ordering Facility: [facility] Address: [address] [place], [place] [address] Performed By: #### 3 016-3, 46069-8, 277-1, 8 #### [facility] CLIA [id number] [address] [place], [place] [address] [place] Phosphate SerPl-mCncon 07-21 Phosphate [Mass/Vol] 3.9 mg/dL Normal 2.7-4.8 [facility] Comment on above: Order Comment: Speci men Type: BLOOD SPECIMEN Ordering Facility: [facility] Address: [address] [place] [address] Performed By: #### 3 016-3, 27871-8, 2777-1, 8 #### [facility] CLIA [id number] [address] [place] [address] [place] TSH SerPl-aCncon 07-21-2024 TSH Qn 0.762 m[IU]/L Normal 0.270-4.200 [facility] Comment on above: Order Comment: Speci men Type: BLOOD SPECIMEN Ordering Facility: [facility] Address: [address] [place] [address] Performed By: #### 3 016-3, 91865-8, 2777-1, 8 #### [facility] CLIA [id number] [address] [place] [address] [place] Absolute lymphocyte countOrd ered By: Nikia Henderson on 07-20-2024 Lymphocytes Auto (Unsp spec) [#/Vol] 1.71 10*3/uL 0.83-4.51 [facility] Anion gap in Serum or Plasma Ordered By: Nikia Henderson on 07-20-2024 Anion gap [Moles/Vol] 10 mmol/L 5-15 [facility] Automated lymphocyte count a s percentage of total leukocytesOrdered By: Nikia Henderson on 07-20-2024 Lymphocytes/100 WBC Auto (Unsp spec) 28.0 % 19-41 [facility] BUN/creatinine ratioOrdered By: Nikia Henderson on 07-20-2024 Urea nitrogen/Creatinine [Mass ratio] 16.1 mg/mg 10-20 [facility] Basophil percentageOrdered B y: Nikia Henderson on 07-20-2024 Basophils/100 WBC (Bld) 0.7 % 0-1 [facility] Carbon dioxide, total [Moles /volume] in Central venous bloodOrdered By: Nikia Henderson on 07-20-2024 CO2 [Moles/Vol] 23.8 mmol/L 21.0-32.0 [facility] Chloride assayOrdered By: Cecilia guanakoterra Henderson on 07-20-2024 Chloride [Moles/Vol] 104 mmol/L 98-108 [facility] Eosinophil percentageOrdered By: [facility] Berrienheladio Henderson on 07-20-2024 Eosinophils/100 WBC (Bld) 2.1 % 0-5 [facility] Erythrocyte distribution wid th ratioOrdered By: [facility] Berrienheladio Henderson on 07-20-2024 Erythrocyte distribution width (RBC) [Ratio] 13.7 % 11.6-14.6 [facility] Erythrocyte distribution wid th standard deviationOrdered By: guanakochokoloskeeheladio Henderson on 07-20-2024 Erythrocyte distribution width (RBC) [Ratio] 50.0 fl High 35.1-43.9 [facility] Glomerular filtration rate ( GFR) estimation/1.73 sq m using serum, plasma, or whole bOrdered By: Nikia Henderson on 07-20-2024 GFR/1.73 sq M.predicted among non-blacks MDRD (S/P/Bld) [Vol rate/Area] 92 mL/min/{1.73_m2} >60 [facility] Hematocrit Auto (Bld) [Volum e fraction]Ordered By: Nikia Henderson on 07-20-2024 Hematocrit (Bld) [Volume fraction] 33.5 % Low 37-47 [facility] Hemoglobin measurementOrdere d By: guanakochokoloskeeheladio Henderson on 07-20-2024 Hemoglobin (Bld) [Mass/Vol] 11.3 g/dL Low 12.0-15. 0 [facility] Immature granulocytes/100 WB C Auto (Bld)Ordered By: guanakochokoloskeeheladio Henderson on 07-20-2024 Immature granulocytes/100 WBC (Bld) 0.500 % 0.0-0.9 [facility] MCV (mean corpuscular volume ) determinationOrdered By: Nikia Henderson on 07-20-2024 MCV (RBC) [Entitic vol] 100.0 fL High 81-99 [facility] Mean corpuscular hemoglobin (MCH) determinationOrdered By: Cecliialaura Jainjanicevioletta on 07-20-2024 MCH (RBC) [Entitic mass] 33.7 pg High 27.0-32.0 [facility] Monocyte percentageOrdered B y: Nikia Henderson on 07-20-2024 Monocytes/100 WBC (Bld) 10.2 % High 0-10 [facility] Neutrophil percentageOrdered By: Cecilialaura Jainjanicevioletta on 07-20-2024 Neutrophils/100 WBC (Bld) 58.5 % 47-70 [facility] Platelet countOrdered By: Cecilia kelleeheladio Henderson on 07-20-2024 Platelets (Bld) [#/Vol] 276 10*3/uL 150-450 [facility] Potassium measurement (mass/ volume)Ordered By: Nikia Henderson on 07-20-2024 Potassium (Unsp spec) [Mass/Vol] 4.1 mmol/L 3.3-5.1 [facility] RBC Auto (Bld) [#/Vol]Ordere d By: Nikia Henderson on 07-20-2024 RBC (Bld) [#/Vol] 3.35 10*6/uL Low 4.2-5.4 [facility] Serum creatinine measurement (mass/volume)Ordered By: Nikia Henderson on 07-20-2024 Creatinine [Mass/Vol] 0.59 mg/dL Low 0.70-1.20 [facility] Serum glucose measurement (m ass/volume)Ordered By: Nikia Henderson on 07-20-2024 Glucose [Mass/Vol] 85 mg/dL 70-99 [facility] Serum or plasma calcium gianluca urement (mass/volume)Ordered By: Nikia Henderson on 07-20-2024 Calcium [Mass/Vol] 9.1 mg/dL 7.6-11.0 [facility] Serum or plasma urea nitroge n measurement (mass/volume)Ordered By: Nikia Jainjanicevioletta on 07-20-2024 Urea nitrogen [Mass/Vol] 9 mg/dL 4- [facility] Sodium levelOrdered By: Catalina ellison Cristobaljanicevioletta on 07-20-2024 Sodium [Moles/Vol] 138 mmol/L 133-145 [facility] White blood cell (WBC) count Ordered By: Ceciliaguanakofedeheladio Jainjanicevioletta on 07-20-2024 WBC (Bld) [#/Vol] 6.1 10*3/uL 4.4-11.0 [facility] Absolute lymphocyte countOrd ered By: Ceciliaguanakofedeheladio Jainjanicevioletta on 07-13-2024 Lymphocytes Auto (Unsp spec) [#/Vol] 1.48 10*3/uL 0.83-4.51 [facility] Absolute neutrophil countOrd ered By: Ceciliaguanakofedeheladio Jainjanicevioletta on 07-13-2024 Absolute neutrophil count 3.7 X10^3/uL 2.0-7.7 [facility] Anion gap [Moles/Vol]Ordered By: Nikia Jainjanicevioletta on 07-13-2024 Anion gap in Serum or Plasma 9 08-12 [facility] Anion gap in Serum or Plasma Ordered By: Cecilialaura Jainjanicevioletta on 07-13-2024 Anion gap [Moles/Vol] 9 mmol/L 08-12 [facility] Automated lymphocyte count a s percentage of total leukocytesOrdered By: Nikia Jainjanicevioletta on 07-13-2024 Lymphocytes/100 WBC Auto (Unsp spec) 24.8 % - [facility] BUN/creatinine ratioOrdered By: Cecilialaura Jainjanicevioletta on 07-13-2024 Urea nitrogen/Creatinine [Mass ratio] 19.7 mg/mg 10- [facility] BUN/creatinine ratio 19.7 RATIO 10- [facility] Basophil percentageOrdered B y: Nikia Henderson on 07-13-2024 Basophils/100 WBC (Bld) 0.8 % 0-1 [facility] Basophil percentage 0.8 % 0-1 [facility] Calcium [Mass/Vol]Ordered By : Nikia Henderson on 07-13-2024 Serum or plasma calcium measurement (mass/volume) 8.8 mg/dL 7.6-11.0 [facility] Carbon dioxide, total [Moles /volume] in Central venous bloodOrdered By: Nikia Henderson 07-13-2024 CO2 [Moles/Vol] 24.1 mmol/L 21.0-32.0 [facility] Carbon dioxide, total [Moles/volume] in Central venous blood 24.1 mmol/L 21.0-32.0 [facility] Chloride assayOrdered By: Cecilia Henderson on 07-13-2024 Chloride [Moles/Vol] 108 mmol/L 98-108 [facility] Chloride assay 108 mmol/L 98-108 [facility] Creatinine [Mass/Vol]Ordered By: Nikia Henderson on 07-13-2024 Serum creatinine measurement (mass/volume) 0.59 mg/dL Low 0.70-1.20 [facility] Eosinophil percentageOrdered By: Nikia Henderson 07-13-2024 Eosinophils/100 WBC (Bld) 2.9 % 0-5 [facility] Eosinophil percentage 2.9 % 0-5 [facility] Erythrocyte distribution wid th (RBC) [Ratio]Ordered By: Nikia Henderson 07-13-2024 Erythrocyte distribution width ratio 14.2 % 11.6-14.6 [facility] Erythrocyte distribution width standard deviation 52.8 fl High 35.1-43.9 [facility] Erythrocyte distribution wid th ratioOrdered By: Nikia Henderson 07-13-2024 Erythrocyte distribution width (RBC) [Ratio] 14.2 % 11.6-14.6 [facility] Erythrocyte distribution wid th standard deviationOrdered By: guanakochokoloskeeheladio Henderson 07-13-2024 Erythrocyte distribution width (RBC) [Ratio] 52.8 fl High 35.1-43.9 [facility] GFR/1.73 sq M.predicted viji g non-blacks MDRD (S/P/Bld) [Vol rate/Area]Ordered By: Nikia Henderson 07-13-2024 Glomerular filtration rate (GFR) estimation/1.73 sq m using serum, plasma, or whole b 92 >60 [facility] Glomerular filtration rate ( GFR) estimation/1.73 sq m using serum, plasma, or whole bOrdered By: Nikia Henderson on 07-13-2024 GFR/1.73 sq M.predicted among non-blacks MDRD (S/P/Bld) [Vol rate/Area] 92 mL/min/{1.73_m2} >60 [facility] Glucose [Mass/Vol]Ordered By : Nikia Henderson on 07-13-2024 Serum glucose measurement (mass/volume) 84 mg/dL 70-99 [facility] Hematocrit Auto (Bld) [Volum e fraction]Ordered By: Nikia eHnderson on 07-13-2024 Hematocrit (Bld) [Volume fraction] 32.8 % Low 37-47 [facility] Automated blood hematocrit (percentage) 32.8 % Low 37-47 [facility] Hemoglobin measurementOrdere d By: Nikia Henderson on 07-13-2024 Hemoglobin (Bld) [Mass/Vol] 10.8 g/dL Low 12.0-15. 0 [facility] Hemoglobin measurement 10.8 g/dL Low 12.0-15.0 [facility] Immature granulocytes/100 WB C Auto (Bld)Ordered By: Nikia Henderson on 07-13-2024 Immature granulocytes/100 WBC (Bld) 0.700 % 0.0-0.9 [facility] Automated immature granulocyte percentage 0.700 % 0.0-0.9 [facility] Lymphocytes Auto (Unsp spec) [#/Vol]Ordered By: Nikia Henderson on 07-13-2024 Absolute lymphocyte count 1.48 X10^3/uL 0.83-4. 51 [facility] Lymphocytes/100 WBC Auto (Un sp spec)Ordered By: Nikia Henderson on 07-13-2024 Automated lymphocyte count as percentage of total leukocytes 24.8 % 19-41 [facility] MCV (RBC) [Entitic vol]Order ed By: Nikia Henderson on 07-13-2024 MCV (mean corpuscular volume) determination 102.2 fL High 81-99 [facility] MCV (mean corpuscular volume ) determinationOrdered By: Nikia Henderson on 07-13-2024 MCV (RBC) [Entitic vol] 102.2 fL High 81-99 [facility] Mean corpuscular hemoglobin (MCH) determinationOrdered By: Nikia Henderson on 07-13-2024 MCH (RBC) [Entitic mass] 33.6 pg High 27.0-32.0 [facility] Mean corpuscular hemoglobin (MCH) determination 33.6 pg High 27.0-32.0 [facility] Mean corpuscular hemoglobin concentration (MCHC) determinationOrdered By: Nikia Henderson on 07-13-2024 Mean corpuscular hemoglobin concentration (MCHC) determination 32.9 g/dL 32-36 [facility] Mean platelet volume determi nationOrdered By: Nikia Henderson on 07-13-2024 Mean platelet volume determination 9.5 fl 6.2-12.0 [facility] Monocyte percentageOrdered B y: Nikia Henderson on 07-13-2024 Monocytes/100 WBC (Bld) 9.1 % 0-10 [facility] Monocyte percentage 9.1 % 0-10 [facility] Neutrophil percentageOrdered By: Nikia Henderson on 07-13-2024 Neutrophils/100 WBC (Bld) 61.7 % 47-70 [facility] Neutrophil percentage 61.7 % 47-70 [facility] Nucleated red blood cell per centageOrdered By: Nikia Henderson on 07-13-2024 Nucleated red blood cell percentage 0 % 0-5 [facility] Platelet countOrdered By: Cecilia Henderson on 07-13-2024 Platelets (Bld) [#/Vol] 267 10*3/uL 150-450 [facility] Platelet count 267 K/mm3 150-450 [facility] Potassium (Unsp spec) [Mass/ Vol]Ordered By: Nikia Henderson on 07-13-2024 Potassium measurement (mass/volume) 4.1 mmol/L 3.3-5.1 [facility] Potassium measurement (mass/ volume)Ordered By: Nikia Henderson on 07-13-2024 Potassium (Unsp spec) [Mass/Vol] 4.1 mmol/L 3.3-5.1 [facility] RBC Auto (Bld) [#/Vol]Ordere d By: Nikia Henderson on 07-13-2024 RBC (Bld) [#/Vol] 3.21 10*6/uL Low 4.2-5.4 [facility] Automated blood erythrocyte count 3.21 M/mm3 Low 4.2-5.4 [facility] Serum creatinine measurement (mass/volume)Ordered By: Nikia Henderson on 07-13-2024 Creatinine [Mass/Vol] 0.59 mg/dL Low 0.70-1.20 [facility] Serum glucose measurement (m ass/volume)Ordered By: Nikia Henderson on 07-13-2024 Glucose [Mass/Vol] 84 mg/dL 70-99 [facility] Serum or plasma calcium gianluca urement (mass/volume)Ordered By: Nikia Henderson on 07-13-2024 Calcium [Mass/Vol] 8.8 mg/dL 7.6-11.0 [facility] Serum or plasma urea nitroge n measurement (mass/volume)Ordered By: Nikia Henderson on 07-13-2024 Urea nitrogen [Mass/Vol] 12 mg/dL - [facility] Sodium levelOrdered By: Catalina Henderson on 07-13-2024 Sodium [Moles/Vol] 141 mmol/L 133-145 [facility] Sodium level 141 mmol/L 133-145 [facility] Urea nitrogen [Mass/Vol]Orde red By: Nikia Henderson on 07-13-2024 Serum or plasma urea nitrogen measurement (mass/volume) 12 mg/dL - [facility] White blood cell (WBC) count Ordered By: Nikia Henderson on 07-13-2024 WBC (Bld) [#/Vol] 6.0 10*3/uL 4.4-11.0 [facility] White blood cell (WBC) count 6.0 K/mm3 4.4-11.0 [facility] CNPNon 07-08-2024 [facility] Tele[facility] ([id number]) LIZETTE DAVIES ([id number]) 1945 F Date Time Provider Department 07/08/24 JOVANNI [id number] During your visit today, we recorded the following information about you: Andressa Arias 07/08/2024 1:55 PM Signed New Patient appointment on 07/21/24 Received outside hospital, [facility] Radiology reports for x-rays and MRIs for Ms. Davies. Will scan the radiology reports into patient's medical record. Jovanni Matthew MD 07/26/2024 9:15 AM Signed Seen on 07/21/24- closing chart Allergies As of Date: 07/08/2024 Noted Allergy Reaction LISINOPRIL 01/23/2012 7 - Swelling 10 - Anaphylaxis Comments: Face, mouth, and tongue. CODEINE 11/01/2008 5 - Intolerance Comments: Headache FOSAMAX (ALENDRONATE) 04/19/2014 14 - Other: See Comments Comments: GI upset IBUPROFEN 03/08/2005 8 - GI Upset Comments: Epigastric pain. In higher dose. LIPITOR (ATORVASTATIN) 07/05/2015 5 - Intolerance Comments: complained of weakness of legs Date Reviewed: 05/13/2017 Reviewed by: Johnathan Richard (Rn), RN - Fully Assessed Reason for Visit: Received outside hospital radiology reports [Other] Prescriptions as of 07/26/2024 - romosozumab-aqqg (EVENITY) 105 mg/1.17 mL syrg syringe Inject 2 syringes subcutaneously once every month. - amLODIPine (NORVASC) 2.5 mg tablet Take 2.5 mg by mouth two times a day. - VITAMIN B COMPLEX ORAL once daily. - baclofen 5 mg tablet Take 5 mg by mouth three times a day. - cholecalciferol (VITAMIN D) 1,000 unit tab tablet Take 1,000 Units by mouth once daily. - cyanocobalamin (VITAMIN B-12) 1,000 mcg tab Take 1,000 mcg by mouth once daily. - folic acid 1 mg tablet Take 1 mg by mouth once daily. - magnesium chloride [address] tablet Take 64 mg by mouth once daily. - MAGNESIUM CITRATE ORAL Take 300 mL by mouth as needed. - oxyCODONE ir (OXYIR) 5 mg capsule Take 5 mg by mouth every 4 hours as needed for pain. - lidocaine-menthol 4-4 % ptmd Apply to affected area. on in am and off @ HS - senna-docusate (SENNA PLUS) 8.6-50 mg per tablet Take 1 tablet by mouth once daily. - citalopram hydrobromide (CELEXA) 10 mg tablet Take by mouth once daily. - ondansetron (ZOFRAN) 4 mg tablet Take by mouth every 4 hours as needed for nausea/vomiting. - metoprolol succinate ER (TOPROL XL) 25 mg 24 hr tablet Take 1 tablet by mouth twice daily. (prescribed by Dr. Daniels) - Cholecalciferol, Vitamin D3, (VITAMIN D-3) 5,000 unit tab Take 5,000 Units by mouth once daily. - COMPOUNDED PRESCRIPTION [employer] 17 drops daily and working up to 60 drops daily (in divided doses). Serving size 30 drops. 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 Dx: Bilat sprained ankles, gait instability. - acetaminophen (TYLENOL EXTRA STRENGTH) 500 mg tablet Take 1 tablet by mouth every 6 hours as needed for Pain. - Magnesium 250 mg tab Take 1,000 mg by mouth. - MULTIVITAMIN TAB Take one(1) tablet daily. Problem List As Of Date 07/08/2024 Noted Resolved Essential hypertension [I10] 02/06/2005 Malaise and fatigue [R53.81, R53.83] 02/27/2005 Other and unspecified hyperlipidemia [E78.5] 02/27/2005 07/30/2012 INT HEMORRHOID W/O COMPL [K64.8] 03/08/2005 Unspecified constipation [K59.00] 03/08/2005 02/19/2012 GASTROINTEST HEMORR NOS [K92.2] 03/08/2005 MYALGIA AND MYOSITIS NOS [[id number]] 09/02/2005 CONGENITAL PES PLANUS [Q66.50] 06/29/2007 Tibialis Tendinitis [M76.829] 10/19/2007 Generalized Osteoarthrosis, Unspecified Site [M*04/05/2008 Contact Dermatitis and Other Eczema, due to Uns*04/05/2008 Morbid obesity with BMI of 40.0-44.9, adult (HC* 01/25/2016 Low back pain [M54.50] 12/14/2013 Numbness and tingling in hands [R20.0, R20.2] 12/14/2013 Spinal cord lesion (HCC) [G95.9] 12/14/2013 Neck pain [M54.2] 12/14/2013 Gait instability [R26.81] 12/14/2013 Myelopathy (HCC) [G95.9] 04/22/2014 Closed spondylolysis fracture of lumbar vertebr*04/22/2014 Spondylolisthesis, grade 3 [M43.10] 04/22/2014 Abnormality of gait [R26.9] 07/07/2014 Muscle weakness (generalized) [M62.81] 07/07/2014 Angioedema [T78.3XXA] 09/26/2014 Special screening for malignant neoplasms, colo*10/06/2014 Gastroparesis [K31.84] Ischial bursitis of right side [M70.71] 04/20/2015 Gastric ulcer without hemorrhage or perforation* 6 05/11/2015 Sarcoidosis (HCC) [D86.9] Balance problem [R26.89] 10/12/2015 Chronic cholecystitis with calculus [K80.10] 11/21/2015 Chronic right-sided low back pain with right-si*05/09/2016 Sacroiliac pain [M53.3] 05/09/2016 Encounter Status:Closed by JOVANNI MATTHEW on 07/26/24 Normal [facility] Absolute lymphocyte countOrd ered By: Nikia Henderson on 07-06-2024 Lymphocytes Auto (Unsp spec) [#/Vol] 1.68 10*3/uL 0.83-4.51 [facility] Absolute neutrophil countOrd ered By: Nikia Henderson on 07-06-2024 Neutrophils (Bld) [#/Vol] 4.0 10*3/uL 2.0-7.7 [facility] Absolute neutrophil count 4.0 X10^3/uL 2.0-7.7 [facility] Anion gap [Moles/Vol]Ordered By: Nikia Henderson on 07-06-2024 Anion gap in Serum or Plasma 10 5-15 [facility] Anion gap in Serum or Plasma Ordered By: Nikia Henderson on 07-06-2024 Anion gap [Moles/Vol] 10 mmol/L 5-15 [facility] Automated lymphocyte count a s percentage of total leukocytesOrdered By: Nikia Henderson on 07-06-2024 Lymphocytes/100 WBC Auto (Unsp spec) 25.1 % 19-41 [facility] BUN/creatinine ratioOrdered By: Nikia Henderson on 07-06-2024 Urea nitrogen/Creatinine [Mass ratio] 23.7 mg/mg High 10-20 [facility] BUN/creatinine ratio 23.7 RATIO High 10-20 [facility] Basophil percentageOrdered B y: Nikia Henderson on 07-06-2024 Basophils/100 WBC (Bld) 0.9 % 0-1 [facility] Basophil percentage 0.9 % 0-1 [facility] Calcium [Mass/Vol]Ordered By : Nikia Henderson on 07-06-2024 Serum or plasma calcium measurement (mass/volume) 8.8 mg/dL 7.6-11.0 [facility] Carbon dioxide, total [Moles /volume] in Central venous bloodOrdered By: Nikia Henderson on 07-06-2024 CO2 [Moles/Vol] 22.4 mmol/L 21.0-32.0 [facility] Carbon dioxide, total [Moles/volume] in Central venous blood 22.4 mmol/L 21.0-32.0 [facility] Chloride assayOrdered By: Cecilia Henderson on 07-06-2024 Chloride [Moles/Vol] 108 mmol/L 98-108 [facility] Chloride assay 108 mmol/L 98-108 [facility] Creatinine [Mass/Vol]Ordered By: Nikia Henderson on 07-06-2024 Serum creatinine measurement (mass/volume) 0.76 mg/dL 0.70-1.20 [facility] Eosinophil percentageOrdered By: Nikia Henderson on 07-06-2024 Eosinophils/100 WBC (Bld) 2.5 % 0-5 [facility] Eosinophil percentage 2.5 % 0-5 [facility] Erythrocyte distribution wid th (RBC) [Ratio]Ordered By: Nikia Henderson on 07-06-2024 Erythrocyte distribution width ratio 14.3 % 11.6-14.6 [facility] Erythrocyte distribution width (RBC) [Entitic vol] 53.8 fL High 35.1-43.9 [facility] Erythrocyte distribution width standard deviation 53.8 fl High 35.1-43.9 [facility] Erythrocyte distribution wid th ratioOrdered By: Nikia Henderson on 07-06-2024 Erythrocyte distribution width (RBC) [Ratio] 14.3 % 11.6-14.6 [facility] Erythrocyte distribution wid th standard deviationOrdered By: Nikia Henderson on 07-06-2024 Erythrocyte distribution width (RBC) [Ratio] 53.8 fl High 35.1-43.9 [facility] GFR/1.73 sq M.predicted viji g non-blacks MDRD (S/P/Bld) [Vol rate/Area]Ordered By: Nikia Henderson on 07-06-2024 Estimated GFR (MDRD) Non-Af Amer 80 >60 [facility] Comment on above: mL/min/1.73m2 CKD-EP I Creatinine Equation (2020) Glomerular filtration rate (GFR) estimation/1.73 sq m using serum, plasma, or whole b 80 >60 [facility] Glomerular filtration rate ( GFR) estimation/1.73 sq m using serum, plasma, or whole bOrdered By: Nikia Henderson on 07-06-2024 GFR/1.73 sq M.predicted among non-blacks MDRD (S/P/Bld) [Vol rate/Area] 80 mL/min/{1.73_m2} >60 [facility] Glucose [Mass/Vol]Ordered By : Nikia Henderson on 07-06-2024 Serum glucose measurement (mass/volume) 90 mg/dL 70-99 [facility] Hematocrit Auto (Bld) [Volum e fraction]Ordered By: Nikia Henderson on 07-06-2024 Hematocrit (Bld) [Volume fraction] 34.4 % Low 37-47 [facility] Automated blood hematocrit (percentage) 34.4 % Low 37-47 [facility] Hemoglobin measurementOrdere d By: Nikia Henderson on 07-06-2024 Hemoglobin (Bld) [Mass/Vol] 11.1 g/dL Low 12.0-15. 0 [facility] Hemoglobin measurement 11.1 g/dL Low 12.0-15.0 [facility] Immature granulocytes/100 WB C Auto (Bld)Ordered By: Nikia Henderson on 07-06-2024 Immature granulocytes/100 WBC (Bld) 1.300 % High 0.0-0.9 [facility] Comment on above: IG% - Immature Granu locytes (promyelocytes, myelocytes and metamyelocytes) > 1% indicates that a LEFT SHIFT is Present. Automated immature granulocyte percentage 1.300 % High 0.0-0.9 [facility] Lymphocytes Auto (Unsp spec) [#/Vol]Ordered By: Nikia Henderson on 07-06-2024 Lymphocytes (Bld) [#/Vol] 1.68 10*3/uL 0.83-4.5 1 [facility] Absolute lymphocyte count 1.68 X10^3/uL 0.83-4. 51 [facility] Lymphocytes/100 WBC Auto (Un sp spec)Ordered By: Nikia Henderson on 07-06-2024 Lymphocytes/100 WBC (Bld) 25.1 % - [facility] Automated lymphocyte count as percentage of total leukocytes 25.1 % - [facility] MCV (RBC) [Entitic vol]Order ed By: Nikia Henderson on 07-06-2024 MCV (mean corpuscular volume) determination 103.6 fL High 81-99 [facility] MCV (mean corpuscular volume ) determinationOrdered By: Nikia Henderson on 07-06-2024 MCV (RBC) [Entitic vol] 103.6 fL High 81-99 [facility] Mean corpuscular hemoglobin (MCH) determinationOrdered By: Nikia Henderson on 07-06-2024 MCH (RBC) [Entitic mass] 33.4 pg High 27.0-32.0 [facility] Mean corpuscular hemoglobin (MCH) determination 33.4 pg High 27.0-32.0 [facility] Mean corpuscular hemoglobin concentration (MCHC) determinationOrdered By: Nikia Henderson on 07-06-2024 MCHC (RBC) [Mass/Vol] 32.3 g/dL 32-36 [facility] Mean corpuscular hemoglobin concentration (MCHC) determination 32.3 g/dL -36 [facility] Mean platelet volume determi nationOrdered By: Nikia Henderson on 07-06-2024 Platelet mean volume (Bld) [Entitic vol] 9.4 fL 6.2-12.0 [facility] Mean platelet volume determination 9.4 fl 6.2-12.0 [facility] Monocyte percentageOrdered B y: Nikia Henderson on 07-06-2024 Monocytes/100 WBC (Bld) 10.8 % High 0-10 [facility] Monocyte percentage 10.8 % High 0-10 [facility] Neutrophil percentageOrdered By: Nikia Henderson on 07-06-2024 Neutrophils/100 WBC (Bld) 59.4 % 47-70 [facility] Neutrophil percentage 59.4 % 47-70 [facility] Nucleated red blood cell per centageOrdered By: Nikia Henderson on 07-06-2024 Nucleated RBC/100 WBC (Bld) [Ratio] 0 % 0-5 [facility] Nucleated red blood cell percentage 0 % 0-5 [facility] Platelet countOrdered By: Cecilia Henderson on 07-06-2024 Platelets (Bld) [#/Vol] 299 10*3/uL 150-450 [facility] Platelet count 299 K/mm3 150-450 [facility] Potassium (Unsp spec) [Mass/ Vol]Ordered By: Nikia Henderson on 07-06-2024 Potassium [Moles/Vol] 4.3 mmol/L 3.3-5.1 [facility] Potassium measurement (mass/volume) 4.3 mmol/L 3.3-5.1 [facility] Potassium measurement (mass/ volume)Ordered By: Nikia Henderson on 07-06-2024 Potassium (Unsp spec) [Mass/Vol] 4.3 mmol/L 3.3-5.1 [facility] RBC Auto (Bld) [#/Vol]Ordere d By: Nikia Henderson on 07-06-2024 RBC (Bld) [#/Vol] 3.32 10*6/uL Low 4.2-5.4 [facility] Automated blood erythrocyte count 3.32 M/mm3 Low 4.2-5.4 [facility] Serum creatinine measurement (mass/volume)Ordered By: Nikia Henderson on 07-06-2024 Creatinine [Mass/Vol] 0.76 mg/dL 0.70-1.20 [facility] Serum glucose measurement (m ass/volume)Ordered By: Nikia Henderson on 07-06-2024 Glucose [Mass/Vol] 90 mg/dL 70-99 [facility] Serum or plasma calcium gianluca urement (mass/volume)Ordered By: Nikia Henderson on 07-06-2024 Calcium [Mass/Vol] 8.8 mg/dL 7.6-11.0 [facility] Serum or plasma urea nitroge n measurement (mass/volume)Ordered By: Nikia Henderson on 07-06-2024 Urea nitrogen [Mass/Vol] 18 mg/dL - [facility] Sodium levelOrdered By: Catalina Henderson on 07-06-2024 Sodium [Moles/Vol] 140 mmol/L 133-145 [facility] Sodium level 140 mmol/L 133-145 [facility] Urea nitrogen [Mass/Vol]Orde red By: Nikia Henderson on 07-06-2024 Serum or plasma urea nitrogen measurement (mass/volume) 18 mg/dL - [facility] White blood cell (WBC) count Ordered By: Nikia Henderson on 07-06-2024 WBC (Bld) [#/Vol] 6.7 10*3/uL 4.4-11.0 [facility] White blood cell (WBC) count 6.7 K/mm3 4.4-11.0 [facility] Absolute lymphocyte countOrd ered By: Audra Drake on 06-29-2024 Lymphocytes Auto (Unsp spec) [#/Vol] 1.28 10*3/uL 0.83-4.51 [facility] Absolute neutrophil countOrd ered By: Audra Drake on 06-29-2024 Neutrophils (Bld) [#/Vol] 4.0 10*3/uL 2.0-7.7 [facility] Absolute neutrophil count 4.0 X10^3/uL 2.0-7.7 [facility] Anion gap [Moles/Vol]Ordered By: Audra Drake on 06-29-2024 Anion gap in Serum or Plasma 10 5-15 [facility] Anion gap in Serum or Plasma Ordered By: Audra Drake on 06-29-2024 Anion gap [Moles/Vol] 10 mmol/L 5-15 [facility] Automated lymphocyte count a s percentage of total leukocytesOrdered By: Audra Drake on 06-29-2024 Lymphocytes/100 WBC Auto (Unsp spec) 20.1 % 19-41 [facility] BUN/creatinine ratioOrdered By: Audra Drake on 06-29-2024 Urea nitrogen/Creatinine [Mass ratio] 18.5 mg/mg 10-20 [facility] BUN/creatinine ratio 18.5 RATIO 10-20 [facility] Basophil percentageOrdered B y: Audra Drake on 06-29-2024 Basophils/100 WBC (Bld) 0.9 % 0-1 [facility] Basophil percentage 0.9 % 0-1 [facility] Calcium [Mass/Vol]Ordered By : Audra Drake on 06-29-2024 Serum or plasma calcium measurement (mass/volume) 9.0 mg/dL 7.6-11.0 [facility] Carbon dioxide, total [Moles /volume] in Central venous bloodOrdered By: Audra Drake on 06-29-2024 CO2 [Moles/Vol] 21.5 mmol/L 21.0-32.0 [facility] Carbon dioxide, total [Moles/volume] in Central venous blood 21.5 mmol/L 21.0-32.0 [facility] Chloride assayOrdered By: Dimitris Drake on 06-29-2024 Chloride [Moles/Vol] 109 mmol/L High 98-108 [facility] Chloride assay 109 mmol/L High 98-108 [facility] Creatinine [Mass/Vol]Ordered By: Audra Drake on 06-29-2024 Serum creatinine measurement (mass/volume) 0.65 mg/dL Low 0.70-1.20 [facility] Eosinophil percentageOrdered By: Audra Drake on 06-29-2024 Eosinophils/100 WBC (Bld) 2.5 % 0-5 [facility] Eosinophil percentage 2.5 % 0-5 [facility] Erythrocyte distribution wid th (RBC) [Ratio]Ordered By: Audra Drake on 06-29-2024 Erythrocyte distribution width ratio 14.0 % 11.6-14.6 [facility] Erythrocyte distribution width (RBC) [Entitic vol] 51.9 fL High 35.1-43.9 [facility] Erythrocyte distribution width standard deviation 51.9 fl High 35.1-43.9 [facility] Erythrocyte distribution wid th ratioOrdered By: Audra Drake on 06-29-2024 Erythrocyte distribution width (RBC) [Ratio] 14.0 % 11.6-14.6 [facility] Erythrocyte distribution wid th standard deviationOrdered By: Audra Drake on 06-29-2024 Erythrocyte distribution width (RBC) [Ratio] 51.9 fl High 35.1-43.9 [facility] GFR/1.73 sq M.predicted viji g non-blacks MDRD (S/P/Bld) [Vol rate/Area]Ordered By: Audra Drake on 06-29-2024 Estimated GFR (MDRD) Non-Af Amer 90 >60 [facility] Comment on above: mL/min/1.73m2 CKD-EP I Creatinine Equation (2020) Glomerular filtration rate (GFR) estimation/1.73 sq m using serum, plasma, or whole b 90 >60 [facility] Glomerular filtration rate ( GFR) estimation/1.73 sq m using serum, plasma, or whole bOrdered By: Audra Drake on 06-29-2024 GFR/1.73 sq M.predicted among non-blacks MDRD (S/P/Bld) [Vol rate/Area] 90 mL/min/{1.73_m2} >60 [facility] Glucose [Mass/Vol]Ordered By : Audra Drake on 06-29-2024 Serum glucose measurement (mass/volume) 84 mg/dL 70-99 [facility] Hematocrit Auto (Bld) [Volum e fraction]Ordered By: Audra Drake on 06-29-2024 Hematocrit (Bld) [Volume fraction] 35.7 % Low 37-47 [facility] Automated blood hematocrit (percentage) 35.7 % Low 37-47 [facility] Hemoglobin measurementOrdere d By: Audra Drake on 06-29-2024 Hemoglobin (Bld) [Mass/Vol] 11.5 g/dL Low 12.0-15. 0 [facility] Hemoglobin measurement 11.5 g/dL Low 12.0-15.0 [facility] Immature granulocytes/100 WB C Auto (Bld)Ordered By: Audra Drake on 06-29-2024 Immature granulocytes/100 WBC (Bld) 1.100 % High 0.0-0.9 [facility] [place] Comment on above: IG% - Immature Granu locytes (promyelocytes, myelocytes and metamyelocytes) > 1% indicates that a LEFT SHIFT is Present. Automated immature granulocyte percentage 1.100 % High 0.0-0.9 [facility] Lymphocytes Auto (Unsp spec) [#/Vol]Ordered By: Audra Drake on 06-29-2024 Lymphocytes (Bld) [#/Vol] 1.28 10*3/uL 0.83-4.5 1 [facility] Absolute lymphocyte count 1.28 X10^3/uL 0.83-4. 51 [facility] Lymphocytes/100 WBC Auto (Un sp spec)Ordered By: Audra Drake on 06-29-2024 Lymphocytes/100 WBC (Bld) 20.1 % [facility] Automated lymphocyte count as percentage of total leukocytes 20.1 % [facility] MCV (RBC) [Entitic vol]Order ed By: Audra Drake on 06-29-2024 MCV (mean corpuscular volume) determination 99.7 fL High 81-99 [facility] MCV (mean corpuscular volume ) determinationOrdered By: Audra Drake on 06-29-2024 MCV (RBC) [Entitic vol] 99.7 fL High 81-99 [facility] Mean corpuscular hemoglobin (MCH) determinationOrdered By: Audra Drake on 06-29-2024 MCH (RBC) [Entitic mass] 32.1 pg High 27.0-32.0 [facility] Mean corpuscular hemoglobin (MCH) determination 32.1 pg High 27.0-32.0 [facility] Mean corpuscular hemoglobin concentration (MCHC) determinationOrdered By: Audra Drake on 06-29-2024 MCHC (RBC) [Mass/Vol] 32.2 g/dL 32-36 [facility] Mean corpuscular hemoglobin concentration (MCHC) determination 32.2 g/dL -36 [facility] Mean platelet volume determi nationOrdered By: Audra Drake on 06-29-2024 Platelet mean volume (Bld) [Entitic vol] 9.5 fL 6.2-12.0 [facility] Mean platelet volume determination 9.5 fl 6.2-12.0 [facility] Monocyte percentageOrdered B y: Audra Drake on 06-29-2024 Monocytes/100 WBC (Bld) 12.3 % High 0-10 [facility] Monocyte percentage 12.3 % High 0-10 [facility] Neutrophil percentageOrdered By: Audra Drake on 06-29-2024 Neutrophils/100 WBC (Bld) 63.1 % 47-70 [facility] Neutrophil percentage 63.1 % 47-70 [facility] Nucleated red blood cell per centageOrdered By: Audra Drake on 06-29-2024 Nucleated RBC/100 WBC (Bld) [Ratio] 0 % 0-5 [facility] Nucleated red blood cell percentage 0 % 0-5 [facility] Platelet countOrdered By: Dimitris Drake on 06-29-2024 Platelets (Bld) [#/Vol] 307 10*3/uL 150-450 [facility] Platelet count 307 K/mm3 150-450 [facility] Potassium (Unsp spec) [Mass/ Vol]Ordered By: Audra Drake on 06-29-2024 Potassium [Moles/Vol] 4.4 mmol/L 3.3-5.1 [facility] Potassium measurement (mass/volume) 4.4 mmol/L 3.3-5.1 [facility] Potassium measurement (mass/ volume)Ordered By: Audra Drake on 06-29-2024 Potassium (Unsp spec) [Mass/Vol] 4.4 mmol/L 3.3-5.1 [facility] RBC Auto (Bld) [#/Vol]Ordere d By: Audra Drake on 06-29-2024 RBC (Bld) [#/Vol] 3.58 10*6/uL Low 4.2-5.4 [facility] Automated blood erythrocyte count 3.58 M/mm3 Low 4.2-5.4 [facility] Serum creatinine measurement (mass/volume)Ordered By: Audra Drake on 06-29-2024 Creatinine [Mass/Vol] 0.65 mg/dL Low 0.70-1.20 [facility] Serum glucose measurement (m ass/volume)Ordered By: Audra Drake on 06-29-2024 Glucose [Mass/Vol] 84 mg/dL 70-99 [facility] Serum or plasma calcium gianluca urement (mass/volume)Ordered By: Audra Drake on 06-29-2024 Calcium [Mass/Vol] 9.0 mg/dL 7.6-11.0 [facility] Serum or plasma urea nitroge n measurement (mass/volume)Ordered By: Audra Drake on 06-29-2024 Urea nitrogen [Mass/Vol] 12 mg/dL 4- [facility] Sodium levelOrdered By: Cony Drake on 06-29-2024 Sodium [Moles/Vol] 140 mmol/L 133-145 [facility] Sodium level 140 mmol/L 133-145 [facility] Urea nitrogen [Mass/Vol]Orde red By: Audra Drake on 06-29-2024 Serum or plasma urea nitrogen measurement (mass/volume) 12 mg/dL - [facility] White blood cell (WBC) count Ordered By: Audra Drake on 06-29-2024 WBC (Bld) [#/Vol] 6.4 10*3/uL 4.4-11.0 [facility] White blood cell (WBC) count 6.4 K/mm3 4.4-11.0 [facility] Absolute lymphocyte countOrd ered By: Audra Drake on 06-22-2024 Lymphocytes Auto (Unsp spec) [#/Vol] 1.15 10*3/uL 0.83-4.51 [facility] Absolute neutrophil countOrd ered By: Audra Drake on 06-22-2024 Neutrophils (Bld) [#/Vol] 4.9 10*3/uL 2.0-7.7 [facility] Absolute neutrophil count 4.9 X10^3/uL 2.0-7.7 [facility] Anion gap [Moles/Vol]Ordered By: Audra Drake on 06-22-2024 Anion gap in Serum or Plasma 11 5-15 [facility] Anion gap in Serum or Plasma Ordered By: Audra Drake on 06-22-2024 Anion gap [Moles/Vol] 11 mmol/L 5-15 [facility] [place] Automated lymphocyte count a s percentage of total leukocytesOrdered By: Audra Drake on 06-22-2024 Lymphocytes/100 WBC Auto (Unsp spec) 16.2 % Low 19-41 [facility] BUN/creatinine ratioOrdered By: Audra Drake on 06-22-2024 Urea nitrogen/Creatinine [Mass ratio] 18.7 mg/mg 10-20 [facility] BUN/creatinine ratio 18.7 RATIO 10-20 [facility] Basophil percentageOrdered B y: Audra Drake on 06-22-2024 Basophils/100 WBC (Bld) 0.6 % 0-1 [facility] Basophil percentage 0.6 % 0-1 [facility] Calcium [Mass/Vol]Ordered By : Audra Drake on 06-22-2024 Serum or plasma calcium measurement (mass/volume) 8.6 mg/dL 7.6-11.0 [facility] Carbon dioxide, total [Moles /volume] in Central venous bloodOrdered By: Audra Drake on 06-22-2024 CO2 [Moles/Vol] 19.5 mmol/L Low 21.0-32.0 [facility] Carbon dioxide, total [Moles/volume] in Central venous blood 19.5 mmol/L Low 21.0-32.0 [facility] Chloride assayOrdered By: Dimitris Drake on 06-22-2024 Chloride [Moles/Vol] 107 mmol/L 98-108 [facility] Chloride assay 107 mmol/L 98-108 [facility] Creatinine [Mass/Vol]Ordered By: Audra Drake on 06-22-2024 Serum creatinine measurement (mass/volume) 0.78 mg/dL 0.70-1.20 [facility] Eosinophil percentageOrdered By: Audra Drake on 06-22-2024 Eosinophils/100 WBC (Bld) 2.3 % 0-5 [facility] Eosinophil percentage 2.3 % 0-5 [facility] Erythrocyte distribution wid th (RBC) [Ratio]Ordered By: Audra Drake on 06-22-2024 Erythrocyte distribution width ratio 13.9 % 11.6-14.6 [facility] Erythrocyte distribution width (RBC) [Entitic vol] 51.1 fL High 35.1-43.9 [facility] Erythrocyte distribution width standard deviation 51.1 fl High 35.1-43.9 [facility] Erythrocyte distribution wid th ratioOrdered By: Audra Drake on 06-22-2024 Erythrocyte distribution width (RBC) [Ratio] 13.9 % 11.6-14.6 [facility] Erythrocyte distribution wid th standard deviationOrdered By: Audra Drake on 06-22-2024 Erythrocyte distribution width (RBC) [Ratio] 51.1 fl High 35.1-43.9 [facility] GFR/1.73 sq M.predicted viji g non-blacks MDRD (S/P/Bld) [Vol rate/Area]Ordered By: Audra Drake on 06-22-2024 Estimated GFR (MDRD) Non-Af Amer 78 >60 [facility] Comment on above: mL/min/1.73m2 CKD-EP I Creatinine Equation (2020) Glomerular filtration rate (GFR) estimation/1.73 sq m using serum, plasma, or whole b 78 >60 [facility] Glomerular filtration rate ( GFR) estimation/1.73 sq m using serum, plasma, or whole bOrdered By: Audra Drake on 06-22-2024 GFR/1.73 sq M.predicted among non-blacks MDRD (S/P/Bld) [Vol rate/Area] 78 mL/min/{1.73_m2} >60 [facility] Glucose [Mass/Vol]Ordered By : Audra Drake on 06-22-2024 Serum glucose measurement (mass/volume) 91 mg/dL 70-99 [facility] Hematocrit Auto (Bld) [Volum e fraction]Ordered By: Audra Drake on 06-22-2024 Hematocrit (Bld) [Volume fraction] 35.7 % Low 37-47 [facility] Automated blood hematocrit (percentage) 35.7 % Low 37-47 [facility] Hemoglobin measurementOrdere d By: Audra Drake on 06-22-2024 Hemoglobin (Bld) [Mass/Vol] 11.6 g/dL Low 12.0-15. 0 [facility] Hemoglobin measurement 11.6 g/dL Low 12.0-15.0 [facility] Immature granulocytes/100 WB C Auto (Bld)Ordered By: Audra Drake on 06-22-2024 Immature granulocytes/100 WBC (Bld) 1.100 % High 0.0-0.9 [facility] Comment on above: IG% - Immature Granu locytes (promyelocytes, myelocytes and metamyelocytes) > 1% indicates that a LEFT SHIFT is Present. Automated immature granulocyte percentage 1.100 % High 0.0-0.9 [facility] Lymphocytes Auto (Unsp spec) [#/Vol]Ordered By: Audra Drake on 06-22-2024 Lymphocytes (Bld) [#/Vol] 1.15 10*3/uL 0.83-4.5 1 [facility] Absolute lymphocyte count 1.15 X10^3/uL 0.83-4. 51 [facility] Lymphocytes/100 WBC Auto (Un sp spec)Ordered By: Audra Drake on 06-22-2024 Lymphocytes/100 WBC (Bld) 16.2 % Low 19-41 [facility] Automated lymphocyte count as percentage of total leukocytes 16.2 % Low - [facility] MCV (RBC) [Entitic vol]Order ed By: Audra Drake on 06-22-2024 MCV (mean corpuscular volume) determination 100.3 fL High 81-99 [facility] MCV (mean corpuscular volume ) determinationOrdered By: Audra Drake on 06-22-2024 MCV (RBC) [Entitic vol] 100.3 fL High 81-99 [facility] Mean corpuscular hemoglobin (MCH) determinationOrdered By: Audra Drake on 06-22-2024 MCH (RBC) [Entitic mass] 32.6 pg High 27.0-32.0 [facility] Mean corpuscular hemoglobin (MCH) determination 32.6 pg High 27.0-32.0 [facility] Mean corpuscular hemoglobin concentration (MCHC) determinationOrdered By: Audra Drake on 06-22-2024 MCHC (RBC) [Mass/Vol] 32.5 g/dL 32-36 [facility] Mean corpuscular hemoglobin concentration (MCHC) determination 32.5 g/dL 32-36 [facility] Mean platelet volume determi nationOrdered By: Audra Drake on 06-22-2024 Platelet mean volume (Bld) [Entitic vol] 9.9 fL 6.2-12.0 [facility] Mean platelet volume determination 9.9 fl 6.2-12.0 [facility] Monocyte percentageOrdered B y: Audra Drake on 06-22-2024 Monocytes/100 WBC (Bld) 11.0 % High 0-10 [facility] Monocyte percentage 11.0 % High 0-10 [facility] Neutrophil percentageOrdered By: Audra Drake on 06-22-2024 Neutrophils/100 WBC (Bld) 68.8 % 47-70 [facility] Neutrophil percentage 68.8 % 47-70 [facility] Nucleated red blood cell per centageOrdered By: Audra Drake on 06-22-2024 Nucleated RBC/100 WBC (Bld) [Ratio] 0 % 0-5 [facility] Nucleated red blood cell percentage 0 % 0-5 [facility] Platelet countOrdered By: Dimitris Drake on 06-22-2024 Platelets (Bld) [#/Vol] 235 10*3/uL 150-450 [facility] Platelet count 235 K/mm3 150-450 [facility] Potassium (Unsp spec) [Mass/ Vol]Ordered By: Audra Drake on 06-22-2024 Potassium [Moles/Vol] 4.4 mmol/L 3.3-5.1 [facility] Potassium measurement (mass/volume) 4.4 mmol/L 3.3-5.1 [facility] Potassium measurement (mass/ volume)Ordered By: Audra Drake on 06-22-2024 Potassium (Unsp spec) [Mass/Vol] 4.4 mmol/L 3.3-5.1 [facility] RBC Auto (Bld) [#/Vol]Ordere d By: Audra Drake on 06-22-2024 RBC (Bld) [#/Vol] 3.56 10*6/uL Low 4.2-5.4 [facility] Automated blood erythrocyte count 3.56 M/mm3 Low 4.2-5.4 [facility] Serum creatinine measurement (mass/volume)Ordered By: Audra Drake on 06-22-2024 Creatinine [Mass/Vol] 0.78 mg/dL 0.70-1.20 [facility] Serum glucose measurement (m ass/volume)Ordered By: Audra Drake on 06-22-2024 Glucose [Mass/Vol] 91 mg/dL 70-99 [facility] Serum or plasma calcium gianluca urement (mass/volume)Ordered By: Audra Drake on 06-22-2024 Calcium [Mass/Vol] 8.6 mg/dL 7.6-11.0 [facility] Serum or plasma urea nitroge n measurement (mass/volume)Ordered By: Audra Draek on 06-22-2024 Urea nitrogen [Mass/Vol] 15 mg/dL - [facility] Sodium levelOrdered By: Cony Drake on 06-22-2024 Sodium [Moles/Vol] 138 mmol/L 133-145 [facility] Sodium level 138 mmol/L 133-145 [facility] Urea nitrogen [Mass/Vol]Orde red By: Audra Drake on 06-22-2024 Serum or plasma urea nitrogen measurement (mass/volume) 15 mg/dL - [facility] White blood cell (WBC) count Ordered By: Audra Drake on 06-22-2024 WBC (Bld) [#/Vol] 7.1 10*3/uL 4.4-11.0 [facility] White blood cell (WBC) count 7.1 K/mm3 4.4-11.0 [facility] Absolute lymphocyte countOrd ered By: Nikia Henderson on 06-15-2024 Lymphocytes Auto (Unsp spec) [#/Vol] 1.51 10*3/uL 0.83-4.51 [facility] Absolute neutrophil countOrd ered By: Nikia Henderson on 06-15-2024 Neutrophils (Bld) [#/Vol] 2.2 10*3/uL 2.0-7.7 [facility] Absolute neutrophil count 2.2 X10^3/uL 2.0-7.7 [facility] Anion gap [Moles/Vol]Ordered By: Nikia Henderson on 06-15-2024 Anion gap in Serum or Plasma 11 5-15 [facility] Anion gap in Serum or Plasma Ordered By: Nikia Henderson on 06-15-2024 Anion gap [Moles/Vol] 11 mmol/L 5-15 [facility] Automated lymphocyte count a s percentage of total leukocytesOrdered By: Nikia Henderson on 06-15-2024 Lymphocytes/100 WBC Auto (Unsp spec) 34.6 % 19-41 [facility] BUN/creatinine ratioOrdered By: Nikia Henderson on 06-15-2024 Urea nitrogen/Creatinine [Mass ratio] 22.9 mg/mg High 10-20 [facility] BUN/creatinine ratio 22.9 RATIO High 10-20 [facility] Basophil percentageOrdered B y: Nikia Henderson on 06-15-2024 Basophils/100 WBC (Bld) 0.5 % 0-1 [facility] Basophil percentage 0.5 % 0-1 [facility] Calcium [Mass/Vol]Ordered By : Nikia Henderson on 06-15-2024 Serum or plasma calcium measurement (mass/volume) 8.7 mg/dL 7.6-11.0 [facility] Carbon dioxide, total [Moles /volume] in Central venous bloodOrdered By: Nikia Henderson on 06-15-2024 CO2 [Moles/Vol] 20.2 mmol/L Low 21.0-32.0 [facility] Carbon dioxide, total [Moles/volume] in Central venous blood 20.2 mmol/L Low 21.0-32.0 [facility] Chloride assayOrdered By: Cecilia Henderson on 06-15-2024 Chloride [Moles/Vol] 111 mmol/L High 98-108 [facility] Chloride assay 111 mmol/L High 98-108 [facility] Creatinine [Mass/Vol]Ordered By: Nikia Henderson on 06-15-2024 Serum creatinine measurement (mass/volume) 0.65 mg/dL Low 0.70-1.20 [facility] Eosinophil percentageOrdered By: Nikia Henderson on 06-15-2024 Eosinophils/100 WBC (Bld) 2.1 % 0-5 [facility] Eosinophil percentage 2.1 % 0-5 [facility] [place] Erythrocyte distribution wid th (RBC) [Ratio]Ordered By: Nikia Henderson on 06-15-2024 Erythrocyte distribution width ratio 14.2 % 11.6-14.6 [facility] Erythrocyte distribution width (RBC) [Entitic vol] 52.7 fL High 35.1-43.9 [facility] Erythrocyte distribution width standard deviation 52.7 fl High 35.1-43.9 [facility] Erythrocyte distribution wid th ratioOrdered By: Nikia Henderson on 06-15-2024 Erythrocyte distribution width (RBC) [Ratio] 14.2 % 11.6-14.6 [facility] Erythrocyte distribution wid th standard deviationOrdered By: Nikia Henderson on 06-15-2024 Erythrocyte distribution width (RBC) [Ratio] 52.7 fl High 35.1-43.9 [facility] GFR/1.73 sq M.predicted viji g non-blacks MDRD (S/P/Bld) [Vol rate/Area]Ordered By: Nikia Henderson on 06-15-2024 Estimated GFR (MDRD) Non-Af Amer 90 >60 [facility] Comment on above: mL/min/1.73m2 CKD-EP I Creatinine Equation (2020) Glomerular filtration rate (GFR) estimation/1.73 sq m using serum, plasma, or whole b 90 >60 [facility] Glomerular filtration rate ( GFR) estimation/1.73 sq m using serum, plasma, or whole bOrdered By: Nikia Henderson on 06-15-2024 GFR/1.73 sq M.predicted among non-blacks MDRD (S/P/Bld) [Vol rate/Area] 90 mL/min/{1.73_m2} >60 [facility] Glucose [Mass/Vol]Ordered By : Nikia Henderson on 06-15-2024 Serum glucose measurement (mass/volume) 83 mg/dL 70-99 [facility] Hematocrit Auto (Bld) [Volum e fraction]Ordered By: Nikia Henderson on 06-15-2024 Hematocrit (Bld) [Volume fraction] 39.1 % 37-47 [facility] Automated blood hematocrit (percentage) 39.1 % 37-47 [facility] Hemoglobin measurementOrdere d By: Nikia Henderson on 06-15-2024 Hemoglobin (Bld) [Mass/Vol] 12.4 g/dL 12.0-15. 0 [facility] Hemoglobin measurement 12.4 g/dL 12.0-15.0 [facility] Immature granulocytes/100 WB C Auto (Bld)Ordered By: Nikia Henderson on 06-15-2024 Immature granulocytes/100 WBC (Bld) 0.700 % 0.0-0.9 [facility] Comment on above: IG% - Immature Granu locytes (promyelocytes, myelocytes and metamyelocytes) > 1% indicates that a LEFT SHIFT is Present. Automated immature granulocyte percentage 0.700 % 0.0-0.9 [facility] Lymphocytes Auto (Unsp spec) [#/Vol]Ordered By: Nikia Henderson on 06-15-2024 Lymphocytes (Bld) [#/Vol] 1.51 10*3/uL 0.83-4.5 1 [facility] Absolute lymphocyte count 1.51 X10^3/uL 0.83-4. 51 [facility] Lymphocytes/100 WBC Auto (Un sp spec)Ordered By: Nikia Henderson on 06-15-2024 Lymphocytes/100 WBC (Bld) 34.6 % [facility] Automated lymphocyte count as percentage of total leukocytes 34.6 % -41 [facility] MCV (RBC) [Entitic vol]Order ed By: Nikia Henderson on 06-15-2024 MCV (mean corpuscular volume) determination 100.8 fL High 81-99 [facility] MCV (mean corpuscular volume ) determinationOrdered By: Nikia Henderson on 06-15-2024 MCV (RBC) [Entitic vol] 100.8 fL High 81-99 [facility] Mean corpuscular hemoglobin (MCH) determinationOrdered By: Nikia Henderson on 06-15-2024 MCH (RBC) [Entitic mass] 32.0 pg 27.0-32.0 [facility] Mean corpuscular hemoglobin (MCH) determination 32.0 pg 27.0-32.0 [facility] Mean corpuscular hemoglobin concentration (MCHC) determinationOrdered By: Nikia Henderson on 06-15-2024 MCHC (RBC) [Mass/Vol] 31.7 g/dL Low 32-36 [facility] Mean corpuscular hemoglobin concentration (MCHC) determination 31.7 g/dL Low 32-36 [facility] Mean platelet volume determi nationOrdered By: Nikia Henderson on 06-15-2024 Platelet mean volume (Bld) [Entitic vol] 9.6 fL 6.2-12.0 [facility] Mean platelet volume determination 9.6 fl 6.2-12.0 [facility] Monocyte percentageOrdered B y: Nikia Henderson on 06-15-2024 Monocytes/100 WBC (Bld) 11.5 % High 0-10 [facility] Monocyte percentage 11.5 % High 0-10 [facility] Neutrophil percentageOrdered By: Nikia Henderson on 06-15-2024 Neutrophils/100 WBC (Bld) 50.6 % 47-70 [facility] Neutrophil percentage 50.6 % 47-70 [facility] Nucleated red blood cell per centageOrdered By: Nikia Henderson on 06-15-2024 Nucleated RBC/100 WBC (Bld) [Ratio] 0 % 0-5 [facility] Nucleated red blood cell percentage 0 % 0-5 [facility] Platelet countOrdered By: Cecilia Henderson on 06-15-2024 Platelets (Bld) [#/Vol] 215 10*3/uL 150-450 [facility] Platelet count 215 K/mm3 150-450 [facility] Potassium (Unsp spec) [Mass/ Vol]Ordered By: Nikia Henderson on 06-15-2024 Potassium [Moles/Vol] 4.7 mmol/L 3.3-5.1 [facility] Comment on above: Hemolysis present, R esults could be affected. Potassium measurement (mass/volume) 4.7 mmol/L 3.3-5.1 [facility] Potassium measurement (mass/ volume)Ordered By: Nikia Henderson on 06-15-2024 Potassium (Unsp spec) [Mass/Vol] 4.7 mmol/L 3.3-5.1 [facility] RBC Auto (Bld) [#/Vol]Ordere d By: Nikia Henderson on 06-15-2024 RBC (Bld) [#/Vol] 3.88 10*6/uL Low 4.2-5.4 [facility] Automated blood erythrocyte count 3.88 M/mm3 Low 4.2-5.4 [facility] Serum creatinine measurement (mass/volume)Ordered By: Nikia Henderson on 06-15-2024 Creatinine [Mass/Vol] 0.65 mg/dL Low 0.70-1.20 [facility] Serum glucose measurement (m ass/volume)Ordered By: Nikia Henderson on 06-15-2024 Glucose [Mass/Vol] 83 mg/dL 70-99 [facility] Serum or plasma calcium gianluca urement (mass/volume)Ordered By: Nikia Henderson on 06-15-2024 Calcium [Mass/Vol] 8.7 mg/dL 7.6-11.0 [facility] Serum or plasma urea nitroge n measurement (mass/volume)Ordered By: Nikia Henderson on 06-15-2024 Urea nitrogen [Mass/Vol] 15 mg/dL 07-17 [facility] Sodium levelOrdered By: Catalina connerling Beatriz on 06-15-2024 Sodium [Moles/Vol] 142 mmol/L 133-145 [facility] Sodium level 142 mmol/L 133-145 [facility] Urea nitrogen [Mass/Vol]Orde red By: Nikia Henderson on 06-15-2024 Serum or plasma urea nitrogen measurement (mass/volume) 15 mg/dL - [facility] White blood cell (WBC) count Ordered By: Nikia Henderson on 06-15-2024 WBC (Bld) [#/Vol] 4.4 10*3/uL 4.4-11.0 [facility] White blood cell (WBC) count 4.4 K/mm3 4.-11.0 [facility] Absolute lymphocyte countOrd ered By: Nikia Henderson on 06-08-2024 Lymphocytes Auto (Unsp spec) [#/Vol] 1.41 10*3/uL 0.83-4.51 [facility] Absolute neutrophil countOrd ered By: Nikia Henderson on 06-08-2024 Neutrophils (Bld) [#/Vol] 3.7 10*3/uL 2.0-7.7 [facility] Absolute neutrophil count 3.7 X10^3/uL 2.0-7.7 [facility] Anion gap [Moles/Vol]Ordered By: Nikia Henderson on 06-08-2024 Anion gap in Serum or Plasma 10 5- [facility] Anion gap in Serum or Plasma Ordered By: Nikia Henderson on 06-08-2024 Anion gap [Moles/Vol] 10 mmol/L 08-12 [facility] Automated lymphocyte count a s percentage of total leukocytesOrdered By: Nikia Henderson on 06-08-2024 Lymphocytes/100 WBC Auto (Unsp spec) 23.7 % [facility] BUN/creatinine ratioOrdered By: Nikia Henderson on 06-08-2024 Urea nitrogen/Creatinine [Mass ratio] 29.4 mg/mg High 10- [facility] BUN/creatinine ratio 29.4 RATIO High 10-20 [facility] Basophil percentageOrdered B y: Nikia Henderson on 06-08-2024 Basophils/100 WBC (Bld) 0.3 % 0-1 [facility] Basophil percentage 0.3 % 0-1 [facility] Calcium [Mass/Vol]Ordered By : Nikia Henderson on 06-08-2024 Serum or plasma calcium measurement (mass/volume) 8.9 mg/dL 7.6-11.0 [facility] Carbon dioxide, total [Moles /volume] in Central venous bloodOrdered By: Nikia Henderson on 06-08-2024 CO2 [Moles/Vol] 21.5 mmol/L 21.0-32.0 [facility] Carbon dioxide, total [Moles/volume] in Central venous blood 21.5 mmol/L 21.0-32.0 [facility] Chloride assayOrdered By: Cecilia Henderson on 06-08-2024 Chloride [Moles/Vol] 110 mmol/L High 98-108 [facility] Chloride assay 110 mmol/L High 98-108 [facility] Creatinine [Mass/Vol]Ordered By: Nikia Henderson on 06-08-2024 Serum creatinine measurement (mass/volume) 0.68 mg/dL Low 0.70-1.20 [facility] Eosinophil percentageOrdered By: Nikia Henderson on 06-08-2024 Eosinophils/100 WBC (Bld) 3.2 % 0-5 [facility] Eosinophil percentage 3.2 % 0-5 [facility] Erythrocyte distribution wid th (RBC) [Ratio]Ordered By: Nikia Henderson on 06-08-2024 Erythrocyte distribution width ratio 14.5 % 11.6-14.6 [facility] Erythrocyte distribution width (RBC) [Entitic vol] 53.2 fL High 35.1-43.9 [facility] Erythrocyte distribution width standard deviation 53.2 fl High 35.1-43.9 [facility] Erythrocyte distribution wid th ratioOrdered By: Nikia Henderson on 06-08-2024 Erythrocyte distribution width (RBC) [Ratio] 14.5 % 11.6-14.6 [facility] Erythrocyte distribution wid th standard deviationOrdered By: Nikia Henderson on 06-08-2024 Erythrocyte distribution width (RBC) [Ratio] 53.2 fl High 35.1-43.9 [facility] GFR/1.73 sq M.predicted viji g non-blacks MDRD (S/P/Bld) [Vol rate/Area]Ordered By: Nikia Henderson on 06-08-2024 Estimated GFR (MDRD) Non-Af Amer 89 >60 [facility] Comment on above: mL/min/1.73m2 CKD-EP I Creatinine Equation (2020) Glomerular filtration rate (GFR) estimation/1.73 sq m using serum, plasma, or whole b 89 >60 [facility] Glomerular filtration rate ( GFR) estimation/1.73 sq m using serum, plasma, or whole bOrdered By: Nikia Henderson on 06-08-2024 GFR/1.73 sq M.predicted among non-blacks MDRD (S/P/Bld) [Vol rate/Area] 89 mL/min/{1.73_m2} >60 [facility] Glucose [Mass/Vol]Ordered By : Nikia Henderson on 06-08-2024 Serum glucose measurement (mass/volume) 85 mg/dL 70-99 [facility] Hematocrit Auto (Bld) [Volum e fraction]Ordered By: Nikia Henderson on 06-08-2024 Hematocrit (Bld) [Volume fraction] 35.9 % Low 37-47 [facility] Automated blood hematocrit (percentage) 35.9 % Low 37-47 [facility] Hemoglobin measurementOrdere d By: Nikia Henderson on 06-08-2024 Hemoglobin (Bld) [Mass/Vol] 11.5 g/dL Low 12.0-15. 0 [facility] Hemoglobin measurement 11.5 g/dL Low 12.0-15.0 [facility] Immature granulocytes/100 WB C Auto (Bld)Ordered By: Nikia Henderson on 06-08-2024 Immature granulocytes/100 WBC (Bld) 0.300 % 0.0-0.9 [facility] Comment on above: IG% - Immature Granu locytes (promyelocytes, myelocytes and metamyelocytes) > 1% indicates that a LEFT SHIFT is Present. Automated immature granulocyte percentage 0.300 % 0.0-0.9 [facility] Lymphocytes Auto (Unsp spec) [#/Vol]Ordered By: Nikia Henderson on 06-08-2024 Lymphocytes (Bld) [#/Vol] 1.41 10*3/uL 0.83-4.5 1 [facility] Absolute lymphocyte count 1.41 X10^3/uL 0.83-4. 51 [facility] Lymphocytes/100 WBC Auto (Un sp spec)Ordered By: Nikia Henderson on 06-08-2024 Lymphocytes/100 WBC (Bld) 23.7 % [facility] Automated lymphocyte count as percentage of total leukocytes 23.7 % [facility] MCV (RBC) [Entitic vol]Order ed By: Nikia Henderson on 06-08-2024 MCV (mean corpuscular volume) determination 100.3 fL High 81-99 [facility] MCV (mean corpuscular volume ) determinationOrdered By: Nikia Henderson on 06-08-2024 MCV (RBC) [Entitic vol] 100.3 fL High 81-99 [facility] Mean corpuscular hemoglobin (MCH) determinationOrdered By: Nikia Henderson on 06-08-2024 MCH (RBC) [Entitic mass] 32.1 pg High 27.0-32.0 [facility] Mean corpuscular hemoglobin (MCH) determination 32.1 pg High 27.0-32.0 [facility] Mean corpuscular hemoglobin concentration (MCHC) determinationOrdered By: Nikia Henderson on 06-08-2024 MCHC (RBC) [Mass/Vol] 32.0 g/dL -36 [facility] Mean corpuscular hemoglobin concentration (MCHC) determination 32.0 g/dL -36 [facility] Mean platelet volume determi nationOrdered By: Nikia Henderson on 06-08-2024 Platelet mean volume (Bld) [Entitic vol] 9.4 fL 6.2-12.0 [facility] Mean platelet volume determination 9.4 fl 6.2-12.0 [facility] Monocyte percentageOrdered B y: Nikia Henderson on 06-08-2024 Monocytes/100 WBC (Bld) 9.4 % 0-10 [facility] Monocyte percentage 9.4 % 0-10 [facility] Neutrophil percentageOrdered By: Nikia Henderson on 06-08-2024 Neutrophils/100 WBC (Bld) 63.1 % 47-70 [facility] Neutrophil percentage 63.1 % 47-70 [facility] Nucleated red blood cell per centageOrdered By: Nikia Henderson on 06-08-2024 Nucleated RBC/100 WBC (Bld) [Ratio] 0 % 0-5 [facility] Nucleated red blood cell percentage 0 % 0-5 [facility] Platelet countOrdered By: Cecilia guanakoterra Henderson on 06-08-2024 Platelets (Bld) [#/Vol] 244 10*3/uL 150-450 [facility] Platelet count 244 K/mm3 150-450 [facility] Potassium (Unsp spec) [Mass/ Vol]Ordered By: Nikia Henderson on 06-08-2024 Potassium [Moles/Vol] 4.3 mmol/L 3.3-5.1 [facility] Potassium measurement (mass/volume) 4.3 mmol/L 3.3-5.1 [facility] Potassium measurement (mass/ volume)Ordered By: Nikia Henderson on 06-08-2024 Potassium (Unsp spec) [Mass/Vol] 4.3 mmol/L 3.3-5.1 [facility] RBC Auto (Bld) [#/Vol]Ordere d By: Nikia Henderson on 06-08-2024 RBC (Bld) [#/Vol] 3.58 10*6/uL Low 4.2-5.4 [facility] Automated blood erythrocyte count 3.58 M/mm3 Low 4.2-5.4 [facility] Serum creatinine measurement (mass/volume)Ordered By: Nikia Henderson on 06-08-2024 Creatinine [Mass/Vol] 0.68 mg/dL Low 0.70-1.20 [facility] Serum glucose measurement (m ass/volume)Ordered By: Nikia Henderson on 06-08-2024 Glucose [Mass/Vol] 85 mg/dL 70-99 [facility] Serum or plasma calcium gianluca urement (mass/volume)Ordered By: Nikia Henderson on 06-08-2024 Calcium [Mass/Vol] 8.9 mg/dL 7.6-11.0 [facility] Serum or plasma urea nitroge n measurement (mass/volume)Ordered By: Nikia Henderson on 06-08-2024 Urea nitrogen [Mass/Vol] 20 mg/dL High 4-19 [facility] Sodium levelOrdered By: Catalina Henderson on 06-08-2024 Sodium [Moles/Vol] 141 mmol/L 133-145 [facility] Sodium level 141 mmol/L 133-145 [facility] Urea nitrogen [Mass/Vol]Orde red By: Nikia Henderson on 06-08-2024 Serum or plasma urea nitrogen measurement (mass/volume) 20 mg/dL High 4-19 [facility] White blood cell (WBC) count Ordered By: Nikia Henderson on 06-08-2024 WBC (Bld) [#/Vol] 5.9 10*3/uL 4.4-11.0 [facility] White blood cell (WBC) count 5.9 K/mm3 4.4-11.0 [facility] Absolute lymphocyte countOrd ered By: Nikia Henderson on 06-01-2024 Lymphocytes Auto (Unsp spec) [#/Vol] 1.46 10*3/uL 0.83-4.51 [facility] Absolute neutrophil countOrd ered By: Nikia Henderson on 06-01-2024 Neutrophils (Bld) [#/Vol] 5.2 10*3/uL 2.0-7.7 [facility] Absolute neutrophil count 5.2 X10^3/uL 2.0-7.7 [facility] Anion gap [Moles/Vol]Ordered By: Nikia Henderson on 06-01-2024 Anion gap in Serum or Plasma 11 5-15 [facility] Anion gap in Serum or Plasma Ordered By: Nikia Henderson on 06-01-2024 Anion gap [Moles/Vol] 11 mmol/L 5-15 [facility] [place] Automated lymphocyte count a s percentage of total leukocytesOrdered By: Nikia Henderson on 06-01-2024 Lymphocytes/100 WBC Auto (Unsp spec) 19.4 % 19-41 [facility] BUN/creatinine ratioOrdered By: Nikia Henderson on 06-01-2024 Urea nitrogen/Creatinine [Mass ratio] 30.2 mg/mg High 10-20 [facility] BUN/creatinine ratio 30.2 RATIO High 10-20 [facility] Basophil percentageOrdered B y: Nikia Henderson on 06-01-2024 Basophils/100 WBC (Bld) 0.7 % 0-1 [facility] Basophil percentage 0.7 % 0-1 [facility] Calcium [Mass/Vol]Ordered By : Nikia Henderson on 06-01-2024 Serum or plasma calcium measurement (mass/volume) 9.0 mg/dL 7.6-11.0 [facility] Carbon dioxide, total [Moles /volume] in Central venous bloodOrdered By: Nikia Henderson on 06-01-2024 CO2 [Moles/Vol] 20.7 mmol/L Low 21.0-32.0 [facility] Carbon dioxide, total [Moles/volume] in Central venous blood 20.7 mmol/L Low 21.0-32.0 [facility] Chloride assayOrdered By: Cecilia Henderson on 06-01-2024 Chloride [Moles/Vol] 110 mmol/L High 98-108 [facility] Chloride assay 110 mmol/L High 98-108 [facility] Creatinine [Mass/Vol]Ordered By: Nikia Henderson on 06-01-2024 Serum creatinine measurement (mass/volume) 0.72 mg/dL 0.70-1.20 [facility] Eosinophil percentageOrdered By: Nikia Henderson on 06-01-2024 Eosinophils/100 WBC (Bld) 1.6 % 0-5 [facility] Eosinophil percentage 1.6 % 0-5 [facility] Erythrocyte distribution wid th (RBC) [Ratio]Ordered By: Nikia Henderson on 06-01-2024 Erythrocyte distribution width ratio 14.1 % 11.6-14.6 [facility] Erythrocyte distribution width (RBC) [Entitic vol] 51.8 fL High 35.1-43.9 [facility] Erythrocyte distribution width standard deviation 51.8 fl High 35.1-43.9 [facility] Erythrocyte distribution wid th ratioOrdered By: Catalinachokoloskeeheladio Henderson on 06-01-2024 Erythrocyte distribution width (RBC) [Ratio] 14.1 % 11.6-14.6 [facility] Erythrocyte distribution wid th standard deviationOrdered By: Catalinachokoloskeeheladio Henderson on 06-01-2024 Erythrocyte distribution width (RBC) [Ratio] 51.8 fl High 35.1-43.9 [facility] GFR/1.73 sq M.predicted viji g non-blacks MDRD (S/P/Bld) [Vol rate/Area]Ordered By: Nikia Henderson on 06-01-2024 Estimated GFR (MDRD) Non-Af Amer 86 >60 [facility] Comment on above: mL/min/1.73m2 CKD-EP I Creatinine Equation (2020) Glomerular filtration rate (GFR) estimation/1.73 sq m using serum, plasma, or whole b 86 >60 [facility] Glomerular filtration rate ( GFR) estimation/1.73 sq m using serum, plasma, or whole bOrdered By: Nikia Henderson on 06-01-2024 GFR/1.73 sq M.predicted among non-blacks MDRD (S/P/Bld) [Vol rate/Area] 86 mL/min/{1.73_m2} >60 [facility] Glucose [Mass/Vol]Ordered By : Nikia Henderson on 06-01-2024 Serum glucose measurement (mass/volume) 94 mg/dL 70-99 [facility] Hematocrit Auto (Bld) [Volum e fraction]Ordered By: Nikia Henderson on 06-01-2024 Hematocrit (Bld) [Volume fraction] 36.4 % Low 37-47 [facility] Automated blood hematocrit (percentage) 36.4 % Low 37-47 [facility] Hemoglobin measurementOrdere d By: Nikia Henderson on 06-01-2024 Hemoglobin (Bld) [Mass/Vol] 11.7 g/dL Low 12.0-15. 0 [facility] Hemoglobin measurement 11.7 g/dL Low 12.0-15.0 [facility] Immature granulocytes/100 WB C Auto (Bld)Ordered By: Nikia Henderson on 06-01-2024 Immature granulocytes/100 WBC (Bld) 0.400 % 0.0-0.9 [facility] Comment on above: IG% - Immature Granu locytes (promyelocytes, myelocytes and metamyelocytes) > 1% indicates that a LEFT SHIFT is Present. Automated immature granulocyte percentage 0.400 % 0.0-0.9 [facility] Lymphocytes Auto (Unsp spec) [#/Vol]Ordered By: Nikia Henderson on 06-01-2024 Lymphocytes (Bld) [#/Vol] 1.46 10*3/uL 0.83-4.5 1 [facility] Absolute lymphocyte count 1.46 X10^3/uL 0.83-4. 51 [facility] Lymphocytes/100 WBC Auto (Un sp spec)Ordered By: Nikia Henderson on 06-01-2024 Lymphocytes/100 WBC (Bld) 19.4 % [facility] Automated lymphocyte count as percentage of total leukocytes 19.4 % [facility] MCV (RBC) [Entitic vol]Order ed By: Nikia Henderson on 06-01-2024 MCV (mean corpuscular volume) determination 100.6 fL High 81-99 [facility] MCV (mean corpuscular volume ) determinationOrdered By: Nikia Henderson on 06-01-2024 MCV (RBC) [Entitic vol] 100.6 fL High 81-99 [facility] Mean corpuscular hemoglobin (MCH) determinationOrdered By: Nikia Henderson on 06-01-2024 MCH (RBC) [Entitic mass] 32.3 pg High 27.0-32.0 [facility] Mean corpuscular hemoglobin (MCH) determination 32.3 pg High 27.0-32.0 [facility] Mean corpuscular hemoglobin concentration (MCHC) determinationOrdered By: Nikia Henderson on 06-01-2024 MCHC (RBC) [Mass/Vol] 32.1 g/dL 32-36 [facility] Mean corpuscular hemoglobin concentration (MCHC) determination 32.1 g/dL -36 [facility] Mean platelet volume determi nationOrdered By: Nikia Henderson on 06-01-2024 Platelet mean volume (Bld) [Entitic vol] 9.8 fL 6.2-12.0 [facility] Mean platelet volume determination 9.8 fl 6.2-12.0 [facility] Monocyte percentageOrdered B y: Nikia Henderson on 06-01-2024 Monocytes/100 WBC (Bld) 8.5 % 0-10 [facility] Monocyte percentage 8.5 % 0-10 [facility] Neutrophil percentageOrdered By: Nikia Henderson on 06-01-2024 Neutrophils/100 WBC (Bld) 69.4 % 47-70 [facility] Neutrophil percentage 69.4 % 47-70 [facility] Nucleated red blood cell per centageOrdered By: Nikia Henderson on 06-01-2024 Nucleated RBC/100 WBC (Bld) [Ratio] 0 % 0-5 [facility] Nucleated red blood cell percentage 0 % 0-5 [facility] Platelet countOrdered By: Cecilia Henderson on 06-01-2024 Platelets (Bld) [#/Vol] 234 10*3/uL 150-450 [facility] Platelet count 234 K/mm3 150-450 [facility] Potassium (Unsp spec) [Mass/ Vol]Ordered By: Nikia Henderson on 06-01-2024 Potassium [Moles/Vol] 4.4 mmol/L 3.3-5.1 [facility] Potassium measurement (mass/volume) 4.4 mmol/L 3.3-5.1 [facility] Potassium measurement (mass/ volume)Ordered By: Nikia Henderson on 06-01-2024 Potassium (Unsp spec) [Mass/Vol] 4.4 mmol/L 3.3-5.1 [facility] RBC Auto (Bld) [#/Vol]Ordere d By: Nikia Henderson on 06-01-2024 RBC (Bld) [#/Vol] 3.62 10*6/uL Low 4.2-5.4 [facility] Automated blood erythrocyte count 3.62 M/mm3 Low 4.2-5.4 [facility] Serum creatinine measurement (mass/volume)Ordered By: Nikia Henderson on 06-01-2024 Creatinine [Mass/Vol] 0.72 mg/dL 0.70-1.20 [facility] Serum glucose measurement (m ass/volume)Ordered By: Nikia Henderson on 06-01-2024 Glucose [Mass/Vol] 94 mg/dL 70-99 [facility] Serum or plasma calcium gianluca urement (mass/volume)Ordered By: Nikia Henderson on 06-01-2024 Calcium [Mass/Vol] 9.0 mg/dL 7.6-11.0 [facility] Serum or plasma urea nitroge n measurement (mass/volume)Ordered By: Nikia Henderson on 06-01-2024 Urea nitrogen [Mass/Vol] 22 mg/dL High 07-17 [facility] Sodium levelOrdered By: Catalina Henderson on 06-01-2024 Sodium [Moles/Vol] 142 mmol/L 133-145 [facility] Sodium level 142 mmol/L 133-145 [facility] Urea nitrogen [Mass/Vol]Orde red By: Nikia Henderson on 06-01-2024 Serum or plasma urea nitrogen measurement (mass/volume) 22 mg/dL High - [facility] White blood cell (WBC) count Ordered By: Nikia Henderson on 06-01-2024 WBC (Bld) [#/Vol] 7.5 10*3/uL 4.4-11.0 [facility] White blood cell (WBC) count 7.5 K/mm3 4.4-11.0 [facility] Basic Metabolic Profile (BMP )on 05-28-2024 BUN Normal 7-18 [facility] Comment on above: Result Comment: Canc elled via OM: Order cancelled - Patient discharged Performed By: #### L 500.2500, L100.0100 ####[facility] [address] [place], [address] BUN/CRE Normal 10-20 [facility] Comment on above: Result Comment: Canc elled via OM: Order cancelled - Patient discharged Performed By: #### L 500.2500, L100.0100 ####[facility] [address] [place], [address] CA,Total Normal 8.5-10.1 [facility] Comment on above: Result Comment: Canc elled via OM: Order cancelled - Patient discharged Performed By: #### L 500.2500, L100.0100 ####[facility] [address] [place], [address] CL Normal 98-107 [facility] Comment on above: Result Comment: Canc elled via OM: Order cancelled - Patient discharged Performed By: #### L 500.2500, L100.0100 ####[facility] [address] [place], [address] CO2 Normal 21.0-32.0 [facility] Comment on above: Result Comment: Canc elled via OM: Order cancelled - Patient discharged Performed By: #### L 500.2500, L100.0100 ####[facility] [address] [place], [address] CREAT,SERUM Normal 0.55-1.02 [facility] Comment on above: Result Comment: Canc elled via OM: Order cancelled - Patient discharged Performed By: #### L 500.2500, L100.0100 ####[facility] [address] [place], [address] EST GFR Normal >60 [facility] Comment on above: Result Comment: Canc elled via OM: Order cancelled - Patient discharged Performed By: #### L 500.2500, L100.0100 ####[facility] [address] [place], [address] EST GFR - AA Normal >60 [facility] Comment on above: Result Comment: Canc elled via OM: Order cancelled - Patient discharged Performed By: #### L 500.2500, L100.0100 ####[facility] [address] [place], [address] GAP Normal 5-15 [facility] Comment on above: Result Comment: Canc elled via OM: Order cancelled - Patient discharged Performed By: #### L 500.2500, L100.0100 ####[facility] [address] [place], [address] GLU Normal 74-106 [facility] Comment on above: Result Comment: Canc elled via OM: Order cancelled - Patient discharged Performed By: #### L 500.2500, L100.0100 ####[facility] [address] [place], [address] Potassium Normal 3.5-5.1 [facility] Comment on above: Result Comment: Canc elled via OM: Order cancelled - Patient discharged Performed By: #### L 500.2500, L100.0100 ####[facility] [address] [place], [address] Basic Metabolic Profile (BMP) Normal 136-145 [facility] Comment on above: Result Comment: Canc elled via OM: Order cancelled - Patient discharged Performed By: #### L 500.2500, L100.0100 ####[facility] [address] [place], [address] CBC W/Diff, Automatedon - Absolute Neut Normal 2.0-7.7 [facility] Comment on above: Result Comment: Canc elled via OM: Order cancelled - Patient discharged Performed By: #### L 500.2500, L100.0100 ####[facility] [address] [place], [address] HCT Normal 37-47 [facility] Comment on above: Result Comment: Canc elled via OM: Order cancelled - Patient discharged Performed By: #### L 500.2500, L100.0100 ####[facility] [address] [place], [address] HGB Normal 12.0-15.0 [facility] Comment on above: Result Comment: Canc elled via OM: Order cancelled - Patient discharged Performed By: #### L 500.2500, L100.0100 ####[facility] [address] [place], [address] MCH Normal 27.0-32.0 [facility] Comment on above: Result Comment: Canc elled via OM: Order cancelled - Patient discharged Performed By: #### L 500.2500, L100.0100 ####[facility] [address] [place], [address] MCHC Normal 32-36 [facility] Comment on above: Result Comment: Canc elled via OM: Order cancelled - Patient discharged Performed By: #### L 500.2500, L100.0100 ####[facility] [address] [place], [address] MCV Normal 81-99 [facility] Comment on above: Result Comment: Canc elled via OM: Order cancelled - Patient discharged Performed By: #### L 500.2500, L100.0100 ####[facility] [address] [place], [address] NEUT% Normal 47-70 [facility] Comment on above: Result Comment: Canc elled via OM: Order cancelled - Patient discharged Performed By: #### L 500.2500, L100.0100 ####[facility] [address] [place], [address] PLT Normal 150-450 [facility] Comment on above: Result Comment: Canc elled via OM: Order cancelled - Patient discharged Performed By: #### L 500.2500, L100.0100 ####[facility] [address] [place], [address] RBC Normal 4.2-5.4 [facility] Comment on above: Result Comment: Canc elled via OM: Order cancelled - Patient discharged Performed By: #### L 500.2500, L100.0100 ####[facility] [address] [place], [address] RDW CV Normal 11.6-14.6 [facility] Comment on above: Result Comment: Canc elled via OM: Order cancelled - Patient discharged Performed By: #### L 500.2500, L100.0100 ####[facility] [address] [place], [address] RDW SD Normal 35.1-43.9 [facility] Comment on above: Result Comment: Canc elled via OM: Order cancelled - Patient discharged Performed By: #### L 500.2500, L100.0100 ####[facility] [address] [place], [address] WBC Normal 4.4-11.0 [facility] Comment on above: Result Comment: Canc elled via OM: Order cancelled - Patient discharged Performed By: #### L 500.2500, L100.0100 ####[facility] [address] [place], [address] Absolute lymphocyte countOrd ered By: Michael Snowden on 05-21-2024 Lymphocytes Auto (Unsp spec) [#/Vol] 1.68 10*3/uL 0.83-4.51 [facility] Absolute neutrophil countOrd ered By: Michael Snowden on 05-21-2024 Neutrophils (Bld) [#/Vol] 6.3 10*3/uL 2.0-7.7 [facility] Absolute neutrophil count 6.3 X10^3/uL 2.0-7.7 [facility] Automated lymphocyte count a s percentage of total leukocytesOrdered By: Michael Snowden on 05-21-2024 Lymphocytes/100 WBC Auto (Unsp spec) 18.3 % Low 19-41 [facility] Basic Metabolic Profile (BMP )on 05-21-2024 BUN/CRE 39.8 RATIO High 10-20 [facility] Comment on above: Performed By: #### L 500.2500, L100.0100 ####[facility] [address] [place], [address] CA,Total 8.9 mg/dL Normal 8.5-10.1 [facility] Comment on above: Performed By: #### L 500.2500, L100.0100 ####[facility] [address] [place], [address] Chloride [Moles/Vol] 109 mmol/L High 98-107 [facility] Comment on above: Performed By: #### L 500.2500, L100.0100 ####[facility] [address] [place], [address] CO2 [Moles/Vol] 22.0 mmol/L Normal 21.0-32.0 [facility] Comment on above: Performed By: #### L 500.2500, L100.0100 ####[facility] [address] [place], [address] Creatinine [Mass/Vol] 0.80 mg/dL Normal 0.55-1.02 [facility] Comment on above: Result Comment: The validity of the calculated GFR GFRAA in patients over70 years has not been determined. Clinical correlation isessential. Performed By: #### L 500.2500, L100.0100 ####[facility] [address] [place], [address] ECRCL 50.86 ml/min Normal [facility] Comment on above: Performed By: #### L 500.2500, L100.0100 ####[facility] [address] [place], [address] EST GFR - AA 89 mL/min Normal >60 [facility] Comment on above: Result Comment: Afri can Grenadian GFR Calc Performed By: #### L 500.2500, L100.0100 ####[facility] [address] [place], [address] GAP 9 Normal 5-15 [facility] Comment on above: Performed By: #### L 500.2500, L100.0100 ####[facility] [address] [place], [address] GFR/1.73 sq M.predicted among non-blacks MDRD (S/P/Bld) [Vol rate/Area] 73 mL/min/{1.73_m2} Normal >60 [facility] Comment on above: Result Comment: Non- GFR Calc Performed By: #### L 500.2500, L100.0100 ####[facility] [address] [place], [address] Glucose [Mass/Vol] 85 mg/dL Normal 74-106 [facility] Comment on above: Performed By: #### L 500.2500, L100.0100 ####[facility] [address] [place], [address] Potassium [Moles/Vol] 5.1 mmol/L Normal 3.5-5.1 [facility] Comment on above: Performed By: #### L 500.2500, L100.0100 ####[facility] [address] [place], [address] Sodium [Moles/Vol] 140 mmol/L Normal 136-145 [facility] Comment on above: Performed By: #### L 500.2500, L100.0100 ####[facility] [address] [place], [address] Urea nitrogen [Mass/Vol] 32 mg/dL High 7-18 [facility] Comment on above: Performed By: #### L 500.2500, L100.0100 ####[facility] [address] [place], [address] Basophil percentageOrdered B y: Michael Amezquitaok on 05-21-2024 Basophils/100 WBC (Bld) 0.1 % 0-1 [facility] Basophil percentage 0.1 % 0-1 [facility] Blood urea nitrogen (BUN)/cr eatinine ratioOrdered By: Michael Snowden on 05-21-2024 Urea nitrogen/Creatinine [Mass ratio] 39.8 mg/mg High 10-20 [facility] Blood urea nitrogen (BUN)/creatinine ratio 39.8 RATIO High 10-20 [facility] CBC W/Diff, Automatedon 05-02 Absolute Lymph 1.68 X10 3/uL Normal 0.83-4.51 [facility] Comment on above: Performed By: #### L 500.2500, L100.0100 ####[facility] [address] [place], [address] Absolute Neut 6.3 X10 3/uL Normal 2.0-7.7 [facility] Comment on above: Performed By: #### L 500.2500, L100.0100 ####[facility] [address] [place], [address] Basophils/100 WBC (Bld) 0.1 % Normal 0-1 [facility] Comment on above: Performed By: #### L 500.2500, L100.0100 ####[facility] [address] [place], [address] Eosinophils/100 WBC (Bld) 0.4 % Normal 0-5 [facility] Comment on above: Performed By: #### L 500.2500, L100.0100 ####[facility] [address] [place], [address] Erythrocyte distribution width (RBC) [Ratio] 14.3 % Normal 11.6-14.6 [facility] Comment on above: Performed By: #### L 500.2500, L100.0100 ####[facility] [address] [place], [address] Hematocrit (Bld) [Volume fraction] 34.3 % Low 37-47 [facility] Comment on above: Performed By: #### L 500.2500, L100.0100 ####[facility] [address] [place], [address] Hemoglobin (Bld) [Mass/Vol] 11.0 g/dL Low 12.0-15. 0 [facility] Comment on above: Performed By: #### L 500.2500, L100.0100 ####[facility] [address] [place], [address] IG% 2.600 High 0.0-0.9 [facility] Comment on above: Result Comment: IG% - Immature Granulocytes (promyelocytes, myelocytes andmetamyelocytes) > 1% indicates that a LEFT SHIFT is Present. Performed By: #### L 500.2500, L100.0100 ####[facility] [address] [place], [address] Lymphocytes/100 WBC (Bld) 18.3 % Low 19-41 [facility] Comment on above: Performed By: #### L 500.2500, L100.0100 ####[facility] [address] [place], [address] MCH (RBC) [Entitic mass] 31.7 pg Normal 27.0-32.0 [facility] Comment on above: Performed By: #### L 500.2500, L100.0100 ####[facility] [address] [place], [address] MCHC (RBC) [Mass/Vol] 32.1 g/dL Normal 32-36 [facility] Comment on above: Performed By: #### L 500.2500, L100.0100 ####[facility] [address] [place], [address] MCV (RBC) [Entitic vol] 98.8 fL Normal 81-99 [facility] Comment on above: Performed By: #### L 500.2500, L100.0100 ####[facility] [address] [place], [address] Monocytes/100 WBC (Bld) 9.6 % Normal 0-10 [facility] Comment on above: Performed By: #### L 500.2500, L100.0100 ####[facility] [address] [place], [address] Neutrophils/100 WBC (Bld) 69.0 % Normal 47-70 [facility] Comment on above: Performed By: #### L 500.2500, L100.0100 ####[facility] [address] [place], [address] Nucleated RBC (Bld) [#/Vol] 0 10*3/uL Normal 0-5 [facility] Comment on above: Performed By: #### L 500.2500, L100.0100 ####[facility] [address] [place], [address] Platelet mean volume (Bld) [Entitic vol] 8.9 fL Normal 6.2-12.0 [facility] Comment on above: Performed By: #### L 500.2500, L100.0100 ####[facility] [address] [place], [address] Platelets (Bld) [#/Vol] 280 10*3/uL Normal 150-450 [facility] Comment on above: Performed By: #### L 500.2500, L100.0100 ####[facility] [address] [place], [address] RBC (Bld) [#/Vol] 3.47 10*6/uL Low 4.2-5.4 [facility] Comment on above: Performed By: #### L 500.2500, L100.0100 ####[facility] [address] [place], [address] RDW SD 52.0 fl High 35.1-43.9 [facility] Comment on above: Performed By: #### L 500.2500, L100.0100 ####[facility] [address] [place], [address] WBC (Bld) [#/Vol] 9.2 10*3/uL Normal 4.4-11.0 [facility] Comment on above: Performed By: #### L 500.2500, L100.0100 ####[facility] [address] [place], [address] Calcium [Mass/Vol]Ordered By : Michael Snowden on 05-21-2024 Serum or plasma calcium measurement (mass/volume) 8.9 mg/dL 8.5-10.1 [facility] Carbon dioxide measurementOr dered By: Michael nSowden on 05-21-2024 CO2 [Moles/Vol] 22.0 mmol/L 21.0-32.0 [facility] Carbon dioxide measurement 22.0 mmol/L 21.0-32. 0 [facility] Chloride measurementOrdered By: Michael Snowden 05-21-2024 Chloride [Moles/Vol] 109 mmol/L High 98-107 [facility] Chloride measurement 109 mmol/L High 98-107 [facility] Creatinine [Mass/Vol]Ordered By: Michael Snowden on 05-21-2024 Serum or plasma creatinine measurement (mass/volume) 0.80 mg/dL 0.55-1.02 [facility] Eosinophil percentageOrdered By: Michael Snowden on 05-21-2024 Eosinophils/100 WBC (Bld) 0.4 % 0-5 [facility] Eosinophil percentage 0.4 % 0-5 [facility] Erythrocyte distribution wid th (RBC) [Ratio]Ordered By: Michael Snowden on 05-21-2024 Erythrocyte distribution width ratio 14.3 % 11.6-14.6 [facility] Erythrocyte distribution width (RBC) [Entitic vol] 52.0 fL High 35.1-43.9 [facility] Erythrocyte distribution width standard deviation 52.0 fl High 35.1-43.9 [facility] Erythrocyte distribution wid th ratioOrdered By: Michael Snowden on 05-21-2024 Erythrocyte distribution width (RBC) [Ratio] 14.3 % 11.6-14.6 [facility] Erythrocyte distribution wid th standard deviationOrdered By: Michael Snowden on 05-21-2024 Erythrocyte distribution width (RBC) [Ratio] 52.0 fl High 35.1-43.9 [facility] Estimated glomerular filtrat ion rate (GFR) AmericanOrdered By: Michael Snowden 05-21-2024 Estimated GFR (MDRD) Amer 89 mL/min >60 [facility] Comment on above: GFR Calc Estimated glomerular filtration rate (GFR) 89 mL/min >60 [facility] Estimation of creatinine bharat aranceOrdered By: Michael Snowden 05-21-2024 Estimated Creatinine Clearance Calc 50.86 ml/min [facility] Estimation of creatinine clearance 50.86 ml/min [facility] Glomerular filtration rate ( GFR) estimationOrdered By: Michael Snowden 05-21-2024 Estimated GFR (MDRD) Non-Af Amer 73 mL/min >60 [facility] Comment on above: Non- GFR Calc GFR/1.73 sq M.predicted among non-blacks MDRD (S/P/Bld) [Vol rate/Area] 73 mL/min/{1.73_m2} >60 [facility] Glomerular filtration rate (GFR) estimation 73 mL/min >60 [facility] Glucose measurementOrdered B y: Michael Snowden on 05-21-2024 Glucose [Mass/Vol] 85 mg/dL 74-106 [facility] Glucose measurement 85 mg/dL 74-106 [facility] Hematocrit Auto (Bld) [Volum e fraction]Ordered By: Michael Snowden on 05-21-2024 Hematocrit (Bld) [Volume fraction] 34.3 % Low 37-47 [facility] Automated blood hematocrit (percentage) 34.3 % Low 37-47 [facility] Hemoglobin measurementOrdere d By: Michael Snowden on 05-21-2024 Hemoglobin (Bld) [Mass/Vol] 11.0 g/dL Low 12.0-15. 0 [facility] Hemoglobin measurement 11.0 g/dL Low 12.0-15.0 [facility] Immature granulocytes/100 WB C Auto (Bld)Ordered By: Michael Snowden on 05-21-2024 Immature granulocytes/100 WBC (Bld) 2.600 % High 0.0-0.9 [facility] Comment on above: IG% - Immature Granu locytes (promyelocytes, myelocytes and metamyelocytes) > 1% indicates that a LEFT SHIFT is Present. Automated immature granulocyte percentage 2.600 % High 0.0-0.9 [facility] Lymphocytes Auto (Unsp spec) [#/Vol]Ordered By: Michael Snowden on 05-21-2024 Lymphocytes (Bld) [#/Vol] 1.68 10*3/uL 0.83-4.5 1 [facility] Absolute lymphocyte count 1.68 X10^3/uL 0.83-4. 51 [facility] Lymphocytes/100 WBC Auto (Un sp spec)Ordered By: Michael Snowden on 05-21-2024 Lymphocytes/100 WBC (Bld) 18.3 % Low 19-41 [facility] Automated lymphocyte count as percentage of total leukocytes 18.3 % Low 19-41 [facility] MCV (RBC) [Entitic vol]Order ed By: Michael Snowden on 05-21-2024 MCV (mean corpuscular volume) determination 98.8 fL 81-99 [facility] MCV (mean corpuscular volume ) determinationOrdered By: Michael Snowden on 05-21-2024 MCV (RBC) [Entitic vol] 98.8 fL 81-99 [facility] Mean corpuscular hemoglobin (MCH) determinationOrdered By: Michael Snowden on 05-21-2024 MCH (RBC) [Entitic mass] 31.7 pg 27.0-32.0 [facility] Mean corpuscular hemoglobin (MCH) determination 31.7 pg 27.0-32.0 [facility] Mean corpuscular hemoglobin concentration (MCHC) determinationOrdered By: Michael Snowden on 05-21-2024 MCHC (RBC) [Mass/Vol] 32.1 g/dL -36 [facility] Mean corpuscular hemoglobin concentration (MCHC) determination 32.1 g/dL -36 [facility] Mean platelet volume determi nationOrdered By: Michael Snowden on 05-21-2024 Platelet mean volume (Bld) [Entitic vol] 8.9 fL 6.2-12.0 [facility] Mean platelet volume determination 8.9 fl 6.2-12.0 [facility] Monocyte percentageOrdered B y: Michael Snowden on 05-21-2024 Monocytes/100 WBC (Bld) 9.6 % 0-10 [facility] Monocyte percentage 9.6 % 0-10 [facility] Neutrophil percentageOrdered By: Michael Snowden on 05-21-2024 Neutrophils/100 WBC (Bld) 69.0 % 47-70 [facility] Neutrophil percentage 69.0 % 47-70 [facility] Nucleated red blood cell per centageOrdered By: Michael Snowden on 05-21-2024 Nucleated RBC/100 WBC (Bld) [Ratio] 0 % 0-5 [facility] Nucleated red blood cell percentage 0 % 0-5 [facility] Platelet countOrdered By: Augusto Snowden on 05-21-2024 Platelets (Bld) [#/Vol] 280 10*3/uL 150-450 [facility] Platelet count 280 K/mm3 150-450 [facility] Potassium measurementOrdered By: Michael Snowden on 05-21-2024 Potassium [Moles/Vol] 5.1 mmol/L 3.5-5.1 [facility] Potassium measurement 5.1 mmol/L 3.5-5.1 [facility] RBC Auto (Bld) [#/Vol]Ordere d By: Michael Snowden on 05-21-2024 RBC (Bld) [#/Vol] 3.47 10*6/uL Low 4.2-5.4 [facility] Automated blood erythrocyte count 3.47 M/mm3 Low 4.2-5.4 [facility] Serum anion gap measurementO rdered By: Michael Snowden on 05-21-2024 Anion gap [Moles/Vol] 9 mmol/L 5-15 [facility] Serum anion gap measurement 9 5-15 [facility] Serum or plasma calcium gianluca urement (mass/volume)Ordered By: Michael Snowden on 05-21-2024 Calcium [Mass/Vol] 8.9 mg/dL 8.5-10.1 [facility] Serum or plasma creatinine m easurement (mass/volume)Ordered By: Michael Snowden on 05-21-2024 Creatinine [Mass/Vol] 0.80 mg/dL 0.55-1.02 [facility] Comment on above: The validity of the calculated GFR & GFRAA in patients over 70 years has not been determined. Clinical correlation is essential. Serum or plasma urea nitroge n measurement (mass/volume)Ordered By: Michael Snowden on 05-21-2024 Urea nitrogen [Mass/Vol] 32 mg/dL High 10-15 [facility] Sodium levelOrdered By: Michael Snowden on 05-21-2024 Sodium [Moles/Vol] 140 mmol/L 136-145 [facility] Sodium level 140 mmol/L 136-145 [facility] Urea nitrogen [Mass/Vol]Orde red By: Michael Snowden on 05-21-2024 Serum or plasma urea nitrogen measurement (mass/volume) 32 mg/dL High 10-15 [facility] White blood cell (WBC) count Ordered By: Michael Snowden on 05-21-2024 WBC (Bld) [#/Vol] 9.2 10*3/uL 4.4-11.0 [facility] White blood cell (WBC) count 9.2 K/mm3 4.4-11.0 [facility] COVID 19 AG RAPID (ELIE Saini)on 05-19-2024 SARS-CoV-2 (COVID-19) RNA DALILA+probe Ql (Unsp spec) Normal [facility] Comment on above: Performed By: #### M 100.505 ####[facility] [address] [place], [place], [id number] COVID-19 virus antigen assay Ordered By: Michael Snowden on 05-19-2024 SARS-CoV-2 (COVID-19) Ag IA.rapid Ql (Resp) [facility] SARS-CoV-2 (COVID-19) Ag IA. rapid Ql (Resp)Ordered By: Michael Snowden on 05-19-2024 SARS-CoV-2 Antigen (Rapid) [facility] Lumbar Spine 2 or 3 Viewson 05-18-2024 Lumbar Spine 2 or 3 Views Normal [facility] Basic Metabolic Profile (BMP )on 05-14-2024 BUN/CRE 22.1 RATIO High 10-20 [facility] Comment on above: Performed By: #### L 100.0100, L500.2500 ####[facility] [address] [place], [address] CA,Total 9.2 mg/dL Normal 8.5-10.1 [facility] Comment on above: Performed By: #### L 100.0100, L500.2500 ####[facility] [address] [place], [address] Chloride [Moles/Vol] 108 mmol/L High 98-107 [facility] Comment on above: Performed By: #### L 100.0100, L500.2500 ####[facility] [address] [place], [address] CO2 [Moles/Vol] 23.0 mmol/L Normal 21.0-32.0 [facility] Comment on above: Performed By: #### L 100.0100, L500.2500 ####[facility] [address] [place], [address] Creatinine [Mass/Vol] 0.63 mg/dL Normal 0.55-1.02 [facility] Comment on above: Result Comment: The validity of the calculated GFR GFRAA in patients over70 years has not been determined. Clinical correlation isessential. Performed By: #### L 100.0100, L500.2500 ####[facility] [address] [place], [address] ECRCL 50.48 ml/min Normal [facility] Comment on above: Performed By: #### L 100.0100, L500.2500 ####[facility] [address] [place], [address] EST GFR - AA 117 mL/min Normal >60 [facility] Comment on above: Result Comment: Afri can Grenadian GFR Calc Performed By: #### L 100.0100, L500.2500 ####[facility] [address] [place], [address] GAP 6 Normal 5-15 [facility] Comment on above: Performed By: #### L 100.0100, L500.2500 ####[facility] [address] [place], [address] GFR/1.73 sq M.predicted among non-blacks MDRD (S/P/Bld) [Vol rate/Area] 96 mL/min/{1.73_m2} Normal >60 [facility] Comment on above: Result Comment: Non- GFR Calc Performed By: #### L 100.0100, L500.2500 ####[facility] [address] [place], [address] Glucose [Mass/Vol] 88 mg/dL Normal 74-106 [facility] Comment on above: Performed By: #### L 100.0100, L500.2500 ####[facility] [address] [place], [address] Potassium [Moles/Vol] 4.1 mmol/L Normal 3.5-5.1 [facility] Comment on above: Performed By: #### L 100.0100, L500.2500 ####[facility] [address] [place], [address] Sodium [Moles/Vol] 137 mmol/L Normal 136-145 [facility] Comment on above: Performed By: #### L 100.0100, L500.2500 ####[facility] [address] [place], [address] Urea nitrogen [Mass/Vol] 14 mg/dL Normal 7-18 [facility] Comment on above: Performed By: #### L 100.0100, L500.2500 ####[facility] [address] [place], [address] CBC W/Diff, Automatedon -04 03-2024 Absolute Lymph 1.29 X10 3/uL Normal 0.83-4.51 [facility] Comment on above: Performed By: #### L 100.0100, L500.2500 ####[facility] [address] [place], [address] Absolute Neut 2.8 X10 3/uL Normal 2.0-7.7 [facility] Comment on above: Performed By: #### L 100.0100, L500.2500 ####[facility] [address] [place], [address] Basophils/100 WBC (Bld) 0.8 % Normal 0-1 [facility] Comment on above: Performed By: #### L 100.0100, L500.2500 ####[facility] [address] [place], [address] Eosinophils/100 WBC (Bld) 3.2 % Normal 0-5 [facility] Comment on above: Performed By: #### L 100.0100, L500.2500 ####[facility] [address] [place], [address] Erythrocyte distribution width (RBC) [Ratio] 13.6 % Normal 11.6-14.6 [facility] Comment on above: Performed By: #### L 100.0100, L500.2500 ####[facility] [address] [place], [address] Hematocrit (Bld) [Volume fraction] 33.9 % Low 37-47 [facility] Comment on above: Performed By: #### L 100.0100, L500.2500 ####[facility] [address] [place], [address] Hemoglobin (Bld) [Mass/Vol] 11.0 g/dL Low 12.0-15. 0 [facility] Comment on above: Performed By: #### L 100.0100, L500.2500 ####[facility] [address] [place], [address] IG% 0.400 Normal 0.0-0.9 [facility] Comment on above: Result Comment: IG% - Immature Granulocytes (promyelocytes, myelocytes andmetamyelocytes) > 1% indicates that a LEFT SHIFT is Present. Performed By: #### L 100.0100, L500.2500 ####[facility] [address] [place], [address] Lymphocytes/100 WBC (Bld) 26.2 % Normal 19-41 [facility] Comment on above: Performed By: #### L 100.0100, L500.2500 ####[facility] [address] [place], [address] MCH (RBC) [Entitic mass] 32.2 pg High 27.0-32.0 [facility] Comment on above: Performed By: #### L 100.0100, L500.2500 ####[facility] [address] [place], [address] MCHC (RBC) [Mass/Vol] 32.4 g/dL Normal 32-36 [facility] Comment on above: Performed By: #### L 100.0100, L500.2500 ####[facility] [address] [place], [address] MCV (RBC) [Entitic vol] 99.1 fL High 81-99 [facility] Comment on above: Performed By: #### L 100.0100, L500.2500 ####[facility] [address] [place], [address] Monocytes/100 WBC (Bld) 12.4 % High 0-10 [facility] Comment on above: Performed By: #### L 100.0100, L500.2500 ####[facility] [address] [place], [address] Neutrophils/100 WBC (Bld) 57.0 % Normal 47-70 [facility] Comment on above: Performed By: #### L 100.0100, L500.2500 ####[facility] [address] [place], [address] Nucleated RBC (Bld) [#/Vol] 0 10*3/uL Normal 0-5 [facility] Comment on above: Performed By: #### L 100.0100, L500.2500 ####[facility] [address] [place], [address] Platelet mean volume (Bld) [Entitic vol] 9.3 fL Normal 6.2-12.0 [facility] Comment on above: Performed By: #### L 100.0100, L500.2500 ####[facility] [address] [place], [address] Platelets (Bld) [#/Vol] 196 10*3/uL Normal 150-450 [facility] Comment on above: Performed By: #### L 100.0100, L500.2500 ####[facility] [address] [place], [address] RBC (Bld) [#/Vol] 3.42 10*6/uL Low 4.2-5.4 [facility] Comment on above: Performed By: #### L 100.0100, L500.2500 ####[facility] [address] [place], [address] RDW SD 49.5 fl High 35.1-43.9 [facility] Comment on above: Performed By: #### L 100.0100, L500.2500 ####[facility] [address] [place], [address] WBC (Bld) [#/Vol] 4.9 10*3/uL Normal 4.4-11.0 [facility] Comment on above: Performed By: #### L 100.0100, L500.2500 ####[facility] [address] [place], [address] COVID 19 AG RAPID (ELIE Saini)on 05-12-2024 SARS-CoV-2 (COVID-19) RNA DALILA+probe Ql (Unsp spec) Normal [facility] Comment on above: Performed By: #### M 100.505 ####[facility] [address] [place], [address] COVID-19 virus antigen assay Ordered By: Michael Snowden on 05-12-2024 SARS-CoV-2 (COVID-19) Ag IA.rapid Ql (Resp) [facility] SARS-CoV-2 (COVID-19) Ag IA. rapid Ql (Resp)Ordered By: Michael Snowden on 05-12-2024 SARS-CoV-2 Antigen (Rapid) [facility] Basic Metabolic Profile (BMP )on 05-07-2024 BUN/CRE 23.5 RATIO High 10-20 [facility] Comment on above: Performed By: #### L 500.2500, L100.0100 ####[facility] [address] [place], [address] CA,Total 8.8 mg/dL Normal 8.5-10.1 [facility] Comment on above: Performed By: #### L 500.2500, L100.0100 ####[facility] [address] [place], [address] Chloride [Moles/Vol] 110 mmol/L High 98-107 [facility] Comment on above: Performed By: #### L 500.2500, L100.0100 ####[facility] [address] [place], [address] CO2 [Moles/Vol] 22.0 mmol/L Normal 21.0-32.0 [facility] Comment on above: Performed By: #### L 500.2500, L100.0100 ####[facility] [address] [place], [address] Creatinine [Mass/Vol] 0.64 mg/dL Normal 0.55-1.02 [facility] Comment on above: Result Comment: The validity of the calculated GFR GFRAA in patients over70 years has not been determined. Clinical correlation isessential. Performed By: #### L 500.2500, L100.0100 ####[facility] [address] [place], [address] ECRCL 50.29 ml/min Normal [facility] Comment on above: Performed By: #### L 500.2500, L100.0100 ####[facility] [address] [place], [address] EST GFR - AA 116 mL/min Normal >60 [facility] Comment on above: Result Comment: Afri can [place] GFR Calc Performed By: #### L 500.2500, L100.0100 ####[facility] [address] [place], [address] GAP 10 Normal 5-15 [facility] Comment on above: Performed By: #### L 500.2500, L100.0100 ####[facility] [address] [place], [address] GFR/1.73 sq M.predicted among non-blacks MDRD (S/P/Bld) [Vol rate/Area] 96 mL/min/{1.73_m2} Normal >60 [facility] Comment on above: Result Comment: Non- GFR Calc Performed By: #### L 500.2500, L100.0100 ####[facility] [address] [place], [address] Glucose [Mass/Vol] 94 mg/dL Normal 74-106 [facility] Comment on above: Performed By: #### L 500.2500, L100.0100 ####[facility] [address] [place], [address] Potassium [Moles/Vol] 4.1 mmol/L Normal 3.5-5.1 [facility] Comment on above: Performed By: #### L 500.2500, L100.0100 ####[facility] [address] [place], [address] Sodium [Moles/Vol] 142 mmol/L Normal 136-145 [facility] Comment on above: Performed By: #### L 500.2500, L100.0100 ####[facility] [address] [place], [address] Urea nitrogen [Mass/Vol] 15 mg/dL Normal 7-18 [facility] Comment on above: Performed By: #### L 500.2500, L100.0100 ####[facility] [address] [place], [address] CBC W/Diff, Automatedon 02-0 7-2024 Absolute Lymph 1.20 X10 3/uL Normal 0.83-4.51 [facility] Comment on above: Performed By: #### L 500.2500, L100.0100 ####[facility] [address] [place], [address] Absolute Neut 2.9 X10 3/uL Normal 2.0-7.7 [facility] Comment on above: Performed By: #### L 500.2500, L100.0100 ####[facility] [address] [place], [address] Basophils/100 WBC (Bld) 0.6 % Normal 0-1 [facility] Comment on above: Performed By: #### L 500.2500, L100.0100 ####[facility] [address] [place], [address] Eosinophils/100 WBC (Bld) 3.0 % Normal 0-5 [facility] Comment on above: Performed By: #### L 500.2500, L100.0100 ####[facility] [address] [place], [address] Erythrocyte distribution width (RBC) [Ratio] 13.7 % Normal 11.6-14.6 [facility] Comment on above: Performed By: #### L 500.2500, L100.0100 ####[facility] [address] [place], [address] Hematocrit (Bld) [Volume fraction] 35.3 % Low 37-47 [facility] Comment on above: Performed By: #### L 500.2500, L100.0100 ####[facility] [address] [place], [address] Hemoglobin (Bld) [Mass/Vol] 11.3 g/dL Low 12.0-15. 0 [facility] Comment on above: Performed By: #### L 500.2500, L100.0100 ####[facility] [address] [place], [address] IG% 0.200 Normal 0.0-0.9 [facility] Comment on above: Result Comment: IG% - Immature Granulocytes (promyelocytes, myelocytes andmetamyelocytes) > 1% indicates that a LEFT SHIFT is Present. Performed By: #### L 500.2500, L100.0100 ####[facility] [address] [place], [address] Lymphocytes/100 WBC (Bld) 25.4 % Normal 19-41 [facility] Comment on above: Performed By: #### L 500.2500, L100.0100 ####[facility] [address] [place], [address] MCH (RBC) [Entitic mass] 31.7 pg Normal 27.0-32.0 [facility] Comment on above: Performed By: #### L 500.2500, L100.0100 ####[facility] [address] [place], [address] MCHC (RBC) [Mass/Vol] 32.0 g/dL Normal 32-36 [facility] Comment on above: Performed By: #### L 500.2500, L100.0100 ####[facility] [address] [place], [address] MCV (RBC) [Entitic vol] 98.9 fL Normal 81-99 [facility] Comment on above: Performed By: #### L 500.2500, L100.0100 ####[facility] [address] [place], [address] Monocytes/100 WBC (Bld) 10.2 % High 0-10 [facility] Comment on above: Performed By: #### L 500.2500, L100.0100 ####[facility] [address] [place], [address] Neutrophils/100 WBC (Bld) 60.6 % Normal 47-70 [facility] Comment on above: Performed By: #### L 500.2500, L100.0100 ####[facility] [address] [place], [address] Nucleated RBC (Bld) [#/Vol] 0 10*3/uL Normal 0-5 [facility] Comment on above: Performed By: #### L 500.2500, L100.0100 ####[facility] [address] [place], [address] Platelet mean volume (Bld) [Entitic vol] 8.9 fL Normal 6.2-12.0 [facility] Comment on above: Performed By: #### L 500.2500, L100.0100 ####[facility] [address] [place], [address] Platelets (Bld) [#/Vol] 208 10*3/uL Normal 150-450 [facility] Comment on above: Performed By: #### L 500.2500, L100.0100 ####[facility] [address] [place], [address] RBC (Bld) [#/Vol] 3.57 10*6/uL Low 4.2-5.4 [facility] Comment on above: Performed By: #### L 500.2500, L100.0100 ####[facility] [address] [place], [address] RDW SD 50.4 fl High 35.1-43.9 [facility] Comment on above: Performed By: #### L 500.2500, L100.0100 ####[facility] [address] [place], [address] WBC (Bld) [#/Vol] 4.7 10*3/uL Normal 4.4-11.0 [facility] Comment on above: Performed By: #### L 500.2500, L100.0100 ####[facility] [address] [place], [address] Basic Metabolic Profile (BMP )on 04-30-2024 BUN/CRE 28.8 RATIO High 10-20 [facility] Comment on above: Performed By: #### L 100.0100, L500.2500 ####[facility] [address] [place], [address] CA,Total 8.9 mg/dL Normal 8.5-10.1 [facility] Comment on above: Performed By: #### L 100.0100, L500.2500 ####[facility] [address] [place], [address] Chloride [Moles/Vol] 112 mmol/L High 98-107 [facility] Comment on above: Performed By: #### L 100.0100, L500.2500 ####[facility] [address] [place], [address] CO2 [Moles/Vol] 22.0 mmol/L Normal 21.0-32.0 [facility] Comment on above: Performed By: #### L 100.0100, L500.2500 ####[facility] [address] [place], [address] Creatinine [Mass/Vol] 0.73 mg/dL Normal 0.55-1.02 [facility] Comment on above: Result Comment: The validity of the calculated GFR GFRAA in patients over70 years has not been determined. Clinical correlation isessential. Performed By: #### L 100.0100, L500.2500 ####[facility] [address] [place], [address] ECRCL 50.34 ml/min Normal [facility] Comment on above: Performed By: #### L 100.0100, L500.2500 ####[facility] [address] [place], [address] EST GFR - AA 99 mL/min Normal >60 [facility] Comment on above: Result Comment: Afri can [place] GFR Calc Performed By: #### L 100.0100, L500.2500 ####[facility] [address] [place], [address] GAP 5 Normal 5-15 [facility] Comment on above: Performed By: #### L 100.0100, L500.2500 ####[facility] [address] [place], [address] GFR/1.73 sq M.predicted among non-blacks MDRD (S/P/Bld) [Vol rate/Area] 82 mL/min/{1.73_m2} Normal >60 [facility] Comment on above: Result Comment: Non- GFR Calc Performed By: #### L 100.0100, L500.2500 ####[facility] [address] [place], [address] Glucose [Mass/Vol] 96 mg/dL Normal 74-106 [facility] Comment on above: Performed By: #### L 100.0100, L500.2500 ####[facility] [address] [place], [address] Potassium [Moles/Vol] 4.3 mmol/L Normal 3.5-5.1 [facility] Comment on above: Performed By: #### L 100.0100, L500.2500 ####[facility] [address] [place], [address] Sodium [Moles/Vol] 140 mmol/L Normal 136-145 [facility] Comment on above: Performed By: #### L 100.0100, L500.2500 ####[facility] [address] [place], [address] Urea nitrogen [Mass/Vol] 21 mg/dL High 7-18 [facility] Comment on above: Performed By: #### L 100.0100, L500.2500 ####[facility] [address] [place], [address] CBC W/Diff, Automatedon - Absolute Lymph 1.28 X10 3/uL Normal 0.83-4.51 [facility] Comment on above: Performed By: #### L 100.0100, L500.2500 ####[facility] [address] [place], [address] Absolute Neut 3.9 X10 3/uL Normal 2.0-7.7 [facility] Comment on above: Performed By: #### L 100.0100, L500.2500 ####[facility] [address] [place], [address] Basophils/100 WBC (Bld) 1.0 % Normal 0-1 [facility] Comment on above: Performed By: #### L 100.0100, L500.2500 ####[facility] [address] [place], [address] Eosinophils/100 WBC (Bld) 2.2 % Normal 0-5 [facility] Comment on above: Performed By: #### L 100.0100, L500.2500 ####[facility] [address] [place], [address] Erythrocyte distribution width (RBC) [Ratio] 13.9 % Normal 11.6-14.6 [facility] Comment on above: Performed By: #### L 100.0100, L500.2500 ####[facility] [address] [place], [address] Hematocrit (Bld) [Volume fraction] 36.1 % Low 37-47 [facility] Comment on above: Performed By: #### L 100.0100, L500.2500 ####[facility] [address] [place], [address] Hemoglobin (Bld) [Mass/Vol] 11.9 g/dL Low 12.0-15. 0 [facility] Comment on above: Performed By: #### L 100.0100, L500.2500 ####[facility] [address] [place], [address] IG% 0.500 Normal 0.0-0.9 [facility] Comment on above: Result Comment: IG% - Immature Granulocytes (promyelocytes, myelocytes andmetamyelocytes) > 1% indicates that a LEFT SHIFT is Present. Performed By: #### L 100.0100, L500.2500 ####[facility] [address] [place], [address] Lymphocytes/100 WBC (Bld) 21.3 % Normal 19-41 [facility] Comment on above: Performed By: #### L 100.0100, L500.2500 ####[facility] [address] [place], [address] MCH (RBC) [Entitic mass] 32.4 pg High 27.0-32.0 [facility] Comment on above: Performed By: #### L 100.0100, L500.2500 ####[facility] [address] [place], [address] MCHC (RBC) [Mass/Vol] 33.0 g/dL Normal 32-36 [facility] Comment on above: Performed By: #### L 100.0100, L500.2500 ####[facility] [address] [place], [address] MCV (RBC) [Entitic vol] 98.4 fL Normal 81-99 [facility] Comment on above: Performed By: #### L 100.0100, L500.2500 ####[facility] [address] [place], [address] Monocytes/100 WBC (Bld) 10.3 % High 0-10 [facility] Comment on above: Performed By: #### L 100.0100, L500.2500 ####[facility] [address] [place], [address] Neutrophils/100 WBC (Bld) 64.7 % Normal 47-70 [facility] Comment on above: Performed By: #### L 100.0100, L500.2500 ####[facility] [address] [place], [address] Nucleated RBC (Bld) [#/Vol] 0 10*3/uL Normal 0-5 [facility] Comment on above: Performed By: #### L 100.0100, L500.2500 ####[facility] [address] [place], [address] Platelet mean volume (Bld) [Entitic vol] 8.8 fL Normal 6.2-12.0 [facility] Comment on above: Performed By: #### L 100.0100, L500.2500 ####[facility] [address] [place], [address] Platelets (Bld) [#/Vol] 265 10*3/uL Normal 150-450 [facility] Comment on above: Performed By: #### L 100.0100, L500.2500 ####[facility] [address] [place], [address] RBC (Bld) [#/Vol] 3.67 10*6/uL Low 4.2-5.4 [facility] Comment on above: Performed By: #### L 100.0100, L500.2500 ####[facility] [address] [place], [address] RDW SD 50.2 fl High 35.1-43.9 [facility] Comment on above: Performed By: #### L 100.0100, L500.2500 ####[facility] [address] [place], [address] WBC (Bld) [#/Vol] 6.0 10*3/uL Normal 4.4-11.0 [facility] Comment on above: Performed By: #### L 100.0100, L500.2500 ####[facility] [address] [place], [address] Basic Metabolic Profile (BMP )on 04-23-2024 BUN/CRE 33.6 RATIO High 10-20 [facility] Comment on above: Performed By: #### L 500.2500, L100.0100 ####[facility] [address] [place], [address] CA,Total 8.8 mg/dL Normal 8.5-10.1 [facility] Comment on above: Performed By: #### L 500.2500, L100.0100 ####[facility] [address] [place], [address] Chloride [Moles/Vol] 108 mmol/L High 98-107 [facility] Comment on above: Performed By: #### L 500.2500, L100.0100 ####[facility] [address] [place], [address] CO2 [Moles/Vol] 22.0 mmol/L Normal 21.0-32.0 [facility] Comment on above: Performed By: #### L 500.2500, L100.0100 ####[facility] [address] [place], [address] Creatinine [Mass/Vol] 0.68 mg/dL Normal 0.55-1.02 [facility] Comment on above: Result Comment: The validity of the calculated GFR GFRAA in patients over70 years has not been determined. Clinical correlation isessential. Performed By: #### L 500.2500, L100.0100 ####[facility] [address] [place], [address] ECRCL 50.54 ml/min Normal [facility] Comment on above: Performed By: #### L 500.2500, L100.0100 ####[facility] [address] [place], [address] EST GFR - AA 107 mL/min Normal >60 [facility] Comment on above: Result Comment: Afri can Grenadian GFR Calc Performed By: #### L 500.2500, L100.0100 ####[facility] [address] [place], [address] GAP 6 Normal 5-15 [facility] Comment on above: Performed By: #### L 500.2500, L100.0100 ####[facility] [address] [place], [address] GFR/1.73 sq M.predicted among non-blacks MDRD (S/P/Bld) [Vol rate/Area] 88 mL/min/{1.73_m2} Normal >60 [facility] Comment on above: Result Comment: Non- GFR Calc Performed By: #### L 500.2500, L100.0100 ####[facility] [address] [place], [address] Glucose [Mass/Vol] 97 mg/dL Normal 74-106 [facility] Comment on above: Performed By: #### L 500.2500, L100.0100 ####[facility] [address] [place], [address] Potassium [Moles/Vol] 4.6 mmol/L Normal 3.5-5.1 [facility] Comment on above: Performed By: #### L 500.2500, L100.0100 ####[facility] [address] [place], [address] Sodium [Moles/Vol] 136 mmol/L Normal 136-145 [facility] Comment on above: Performed By: #### L 500.2500, L100.0100 ####[facility] [address] [place], [address] Urea nitrogen [Mass/Vol] 23 mg/dL High 7-18 [facility] Comment on above: Performed By: #### L 500.2500, L100.0100 ####[facility] [address] [place], [address] CBC W/Diff, Automatedon 04-01 Absolute Lymph 1.47 X10 3/uL Normal 0.83-4.51 [facility] Comment on above: Performed By: #### L 500.2500, L100.0100 ####[facility] [address] [place], [address] Absolute Neut 4.2 X10 3/uL Normal 2.0-7.7 [facility] Comment on above: Performed By: #### L 500.2500, L100.0100 ####[facility] [address] [place], [address] Basophils/100 WBC (Bld) 0.6 % Normal 0-1 [facility] Comment on above: Performed By: #### L 500.2500, L100.0100 ####[facility] [address] [place], [address] Eosinophils/100 WBC (Bld) 2.1 % Normal 0-5 [facility] Comment on above: Performed By: #### L 500.2500, L100.0100 ####[facility] [address] [place], [address] Erythrocyte distribution width (RBC) [Ratio] 13.2 % Normal 11.6-14.6 [facility] Comment on above: Performed By: #### L 500.2500, L100.0100 ####[facility] [address] [place], [address] Hematocrit (Bld) [Volume fraction] 34.8 % Low 37-47 [facility] Comment on above: Performed By: #### L 500.2500, L100.0100 ####[facility] [address] [place], [address] Hemoglobin (Bld) [Mass/Vol] 11.5 g/dL Low 12.0-15. 0 [facility] Comment on above: Performed By: #### L 500.2500, L100.0100 ####[facility] [address] [place], [address] IG% 2.400 High 0.0-0.9 [facility] Comment on above: Result Comment: IG% - Immature Granulocytes (promyelocytes, myelocytes andmetamyelocytes) > 1% indicates that a LEFT SHIFT is Present. Performed By: #### L 500.2500, L100.0100 ####[facility] [address] [place], [address] Lymphocytes/100 WBC (Bld) 22.0 % Normal 19-41 [facility] Comment on above: Performed By: #### L 500.2500, L100.0100 ####[facility] [address] [place], [address] MCH (RBC) [Entitic mass] 32.5 pg High 27.0-32.0 [facility] Comment on above: Performed By: #### L 500.2500, L100.0100 ####[facility] [address] [place], [address] MCHC (RBC) [Mass/Vol] 33.0 g/dL Normal 32-36 [facility] Comment on above: Performed By: #### L 500.2500, L100.0100 ####[facility] [address] [place], [address] MCV (RBC) [Entitic vol] 98.3 fL Normal 81-99 [facility] Comment on above: Performed By: #### L 500.2500, L100.0100 ####[facility] [address] [place], [address] Monocytes/100 WBC (Bld) 10.3 % High 0-10 [facility] Comment on above: Performed By: #### L 500.2500, L100.0100 ####[facility] [address] [place], [address] Neutrophils/100 WBC (Bld) 62.6 % Normal 47-70 [facility] Comment on above: Performed By: #### L 500.2500, L100.0100 ####[facility] [address] [place], [address] Nucleated RBC (Bld) [#/Vol] 0 10*3/uL Normal 0-5 [facility] Comment on above: Performed By: #### L 500.2500, L100.0100 ####[facility] [address] [place], [address] Platelet mean volume (Bld) [Entitic vol] 9.0 fL Normal 6.2-12.0 [facility] Comment on above: Performed By: #### L 500.2500, L100.0100 ####[facility] [address] [place], [address] Platelets (Bld) [#/Vol] 263 10*3/uL Normal 150-450 [facility] Comment on above: Performed By: #### L 500.2500, L100.0100 ####[facility] [address] [place], [address] RBC (Bld) [#/Vol] 3.54 10*6/uL Low 4.2-5.4 [facility] Comment on above: Performed By: #### L 500.2500, L100.0100 ####[facility] [address] [place], [address] RDW SD 47.7 fl High 35.1-43.9 [facility] Comment on above: Performed By: #### L 500.2500, L100.0100 ####[facility] [address] [place], [address] WBC (Bld) [#/Vol] 6.7 10*3/uL Normal 4.4-11.0 [facility] Comment on above: Performed By: #### L 500.2500, L100.0100 ####[facility] [address] [place], [address] Basic Metabolic Profile (BMP )on 04-19-2024 BUN Normal 7-18 [facility] Comment on above: Result Comment: Canc elled via OM: Order cancelled - Patient discharged Performed By: #### L 100.0500, L500.2500 ####[facility] [address] [place], [address] BUN/CRE Normal 10-20 [facility] Comment on above: Result Comment: Canc elled via OM: Order cancelled - Patient discharged Performed By: #### L 100.0500, L500.2500 ####[facility] [address] [place], [address] CA,Total Normal 8.5-10.1 [facility] Comment on above: Result Comment: Canc elled via OM: Order cancelled - Patient discharged Performed By: #### L 100.0500, L500.2500 ####[facility] [address] [place], [address] CL Normal 98-107 [facility] Comment on above: Result Comment: Canc elled via OM: Order cancelled - Patient discharged Performed By: #### L 100.0500, L500.2500 ####[facility] [address] [place], [address] CO2 Normal 21.0-32.0 [facility] Comment on above: Result Comment: Canc elled via OM: Order cancelled - Patient discharged Performed By: #### L 100.0500, L500.2500 ####[facility] [address] [place], [address] CREAT,SERUM Normal 0.55-1.02 [facility] Comment on above: Result Comment: Canc elled via OM: Order cancelled - Patient discharged Performed By: #### L 100.0500, L500.2500 ####[facility] [address] [place], [address] EST GFR Normal >60 [facility] Comment on above: Result Comment: Canc elled via OM: Order cancelled - Patient discharged Performed By: #### L 100.0500, L500.2500 ####[facility] [address] [place], [address] EST GFR - AA Normal >60 [facility] Comment on above: Result Comment: Canc elled via OM: Order cancelled - Patient discharged Performed By: #### L 100.0500, L500.2500 ####[facility] [address] [place], [address] GAP Normal 5-15 [facility] Comment on above: Result Comment: Canc elled via OM: Order cancelled - Patient discharged Performed By: #### L 100.0500, L500.2500 ####[facility] [address] [place], [address] GLU Normal 74-106 [facility] Comment on above: Result Comment: Canc elled via OM: Order cancelled - Patient discharged Performed By: #### L 100.0500, L500.2500 ####[facility] [address] [place], [address] Potassium Normal 3.5-5.1 [facility] Comment on above: Result Comment: Canc elled via OM: Order cancelled - Patient discharged Performed By: #### L 100.0500, L500.2500 ####[facility] [address] [place], [address] Basic Metabolic Profile (BMP) Normal 136-145 [facility] Comment on above: Result Comment: Canc elled via OM: Order cancelled - Patient discharged Performed By: #### L 100.0500, L500.2500 ####[facility] [address] [place], [address] CBC-Complete Blood Cnt No Di ffon 04-19-2024 HCT Normal 37-47 [facility] Comment on above: Result Comment: Canc elled via OM: Order cancelled - Patient discharged Performed By: #### L 100.0500, L500.2500 ####[facility] [address] [place], [address] HGB Normal 12.0-15.0 [facility] Comment on above: Result Comment: Canc elled via OM: Order cancelled - Patient discharged Performed By: #### L 100.0500, L500.2500 ####[facility] [address] [place], [address] MCH Normal 27.0-32.0 [facility] Comment on above: Result Comment: Canc elled via OM: Order cancelled - Patient discharged Performed By: #### L 100.0500, L500.2500 ####[facility] [address] [place], [address] MCHC Normal 32-36 [facility] Comment on above: Result Comment: Canc elled via OM: Order cancelled - Patient discharged Performed By: #### L 100.0500, L500.2500 ####[facility] [address] [place], [address] MCV Normal 81-99 [facility] Comment on above: Result Comment: Canc elled via OM: Order cancelled - Patient discharged Performed By: #### L 100.0500, L500.2500 ####[facility] [address] [place], [address] PLT Normal 150-450 [facility] Comment on above: Result Comment: Canc elled via OM: Order cancelled - Patient discharged Performed By: #### L 100.0500, L500.2500 ####[facility] [address] [place], [address] RBC Normal 4.2-5.4 [facility] Comment on above: Result Comment: Canc elled via OM: Order cancelled - Patient discharged Performed By: #### L 100.0500, L500.2500 ####[facility] [address] [place], [address] RDW CV Normal 11.6-14.6 [facility] Comment on above: Result Comment: Canc elled via OM: Order cancelled - Patient discharged Performed By: #### L 100.0500, L500.2500 ####[facility] [address] [place], [address] RDW SD Normal 35.1-43.9 [facility] Comment on above: Result Comment: Canc elled via OM: Order cancelled - Patient discharged Performed By: #### L 100.0500, L500.2500 ####[facility] [address] [place], [address] WBC Normal 4.4-11.0 [facility] Comment on above: Result Comment: Canc elled via OM: Order cancelled - Patient discharged Performed By: #### L 100.0500, L500.2500 ####[facility] [address] [place], [address] Basic Metabolic Profile (BMP )on 04-18-2024 BUN Normal 7-18 [facility] Comment on above: Result Comment: Canc elled via OM: Order cancelled - Patient discharged Performed By: #### L 100.0500, L500.2500 ####[facility] [address] [place], [address] BUN/CRE Normal 10-20 [facility] Comment on above: Result Comment: Canc elled via OM: Order cancelled - Patient discharged Performed By: #### L 100.0500, L500.2500 ####[facility] [address] [place], [address] CA,Total Normal 8.5-10.1 [facility] Comment on above: Result Comment: Canc elled via OM: Order cancelled - Patient discharged Performed By: #### L 100.0500, L500.2500 ####[facility] [address] [place], [address] CL Normal 98-107 [facility] Comment on above: Result Comment: Canc elled via OM: Order cancelled - Patient discharged Performed By: #### L 100.0500, L500.2500 ####[facility] [address] [place], [address] CO2 Normal 21.0-32.0 [facility] Comment on above: Result Comment: Canc elled via OM: Order cancelled - Patient discharged Performed By: #### L 100.0500, L500.2500 ####[facility] [address] [place], [address] CREAT,SERUM Normal 0.55-1.02 [facility] Comment on above: Result Comment: Canc elled via OM: Order cancelled - Patient discharged Performed By: #### L 100.0500, L500.2500 ####[facility] [address] [place], [address] EST GFR Normal >60 [facility] Comment on above: Result Comment: Canc elled via OM: Order cancelled - Patient discharged Performed By: #### L 100.0500, L500.2500 ####[facility] [address] [place], [address] EST GFR - AA Normal >60 [facility] Comment on above: Result Comment: Canc elled via OM: Order cancelled - Patient discharged Performed By: #### L 100.0500, L500.2500 ####[facility] [address] [place], [address] GAP Normal 5-15 [facility] Comment on above: Result Comment: Canc elled via OM: Order cancelled - Patient discharged Performed By: #### L 100.0500, L500.2500 ####[facility] [address] [place], [address] GLU Normal 74-106 [facility] Comment on above: Result Comment: Canc elled via OM: Order cancelled - Patient discharged Performed By: #### L 100.0500, L500.2500 ####[facility] [address] [place], [address] Potassium Normal 3.5-5.1 [facility] Comment on above: Result Comment: Canc elled via OM: Order cancelled - Patient discharged Performed By: #### L 100.0500, L500.2500 ####[facility] [address] [place], [address] Basic Metabolic Profile (BMP) Normal 136-145 [facility] Comment on above: Result Comment: Canc elled via OM: Order cancelled - Patient discharged Performed By: #### L 100.0500, L500.2500 ####[facility] [address] [place], [address] CBC-Complete Blood Cnt No Di ffon 04-18-2024 HCT Normal 37-47 [facility] Comment on above: Result Comment: Canc elled via OM: Order cancelled - Patient discharged Performed By: #### L 100.0500, L500.2500 ####[facility] [address] [place], [address] HGB Normal 12.0-15.0 [facility] Comment on above: Result Comment: Canc elled via OM: Order cancelled - Patient discharged Performed By: #### L 100.0500, L500.2500 ####[facility] [address] [place], [address] MCH Normal 27.0-32.0 [facility] Comment on above: Result Comment: Canc elled via OM: Order cancelled - Patient discharged Performed By: #### L 100.0500, L500.2500 ####[facility] [address] [place], [address] MCHC Normal 32-36 [facility] Comment on above: Result Comment: Canc elled via OM: Order cancelled - Patient discharged Performed By: #### L 100.0500, L500.2500 ####[facility] [address] [place], [address] MCV Normal 81-99 [facility] Comment on above: Result Comment: Canc elled via OM: Order cancelled - Patient discharged Performed By: #### L 100.0500, L500.2500 ####[facility] [address] [place], [address] PLT Normal 150-450 [facility] Comment on above: Result Comment: Canc elled via OM: Order cancelled - Patient discharged Performed By: #### L 100.0500, L500.2500 ####[facility] [address] [place], [address] RBC Normal 4.2-5.4 [facility] Comment on above: Result Comment: Canc elled via OM: Order cancelled - Patient discharged Performed By: #### L 100.0500, L500.2500 ####[facility] [address] [place], [address] RDW CV Normal 11.6-14.6 [facility] Comment on above: Result Comment: Canc elled via OM: Order cancelled - Patient discharged Performed By: #### L 100.0500, L500.2500 ####[facility] [address] [place], [address] RDW SD Normal 35.1-43.9 [facility] Comment on above: Result Comment: Canc elled via OM: Order cancelled - Patient discharged Performed By: #### L 100.0500, L500.2500 ####[facility] [address] [place], [address] WBC Normal 4.4-11.0 [facility] Comment on above: Result Comment: Canc elled via OM: Order cancelled - Patient discharged Performed By: #### L 100.0500, L500.2500 ####[facility] [address] [place], [address] Basic Metabolic Profile (BMP )on 04-17-2024 BUN Normal -18 [facility] Comment on above: Result Comment: Canc elled via OM: Order cancelled - Patient discharged Performed By: #### L 500.2500, L100.0500 ####[facility] [address] [place], [address] BUN/CRE Normal 10-20 [facility] Comment on above: Result Comment: Canc elled via OM: Order cancelled - Patient discharged Performed By: #### L 500.2500, L100.0500 ####[facility] [address] [place], [address] CA,Total Normal 8.5-10.1 [facility] Comment on above: Result Comment: Canc elled via OM: Order cancelled - Patient discharged Performed By: #### L 500.2500, L100.0500 ####[facility] [address] [place], [address] CL Normal 98-107 [facility] Comment on above: Result Comment: Canc elled via OM: Order cancelled - Patient discharged Performed By: #### L 500.2500, L100.0500 ####[facility] [address] [place], [address] CO2 Normal 21.0-32.0 [facility] Comment on above: Result Comment: Canc elled via OM: Order cancelled - Patient discharged Performed By: #### L 500.2500, L100.0500 ####[facility] [address] [place], [address] CREAT,SERUM Normal 0.55-1.02 [facility] Comment on above: Result Comment: Canc elled via OM: Order cancelled - Patient discharged Performed By: #### L 500.2500, L100.0500 ####[facility] [address] [place], [address] EST GFR Normal >60 [facility] Comment on above: Result Comment: Canc elled via OM: Order cancelled - Patient discharged Performed By: #### L 500.2500, L100.0500 ####[facility] [address] [place], [address] EST GFR - AA Normal >60 [facility] Comment on above: Result Comment: Canc elled via OM: Order cancelled - Patient discharged Performed By: #### L 500.2500, L100.0500 ####[facility] [address] [place], [address] GAP Normal 5-15 [facility] Comment on above: Result Comment: Canc elled via OM: Order cancelled - Patient discharged Performed By: #### L 500.2500, L100.0500 ####[facility] [address] [place], [address] GLU Normal 74-106 [facility] Comment on above: Result Comment: Canc elled via OM: Order cancelled - Patient discharged Performed By: #### L 500.2500, L100.0500 ####[facility] [address] [place], [address] Potassium Normal 3.5-5.1 [facility] Comment on above: Result Comment: Canc elled via OM: Order cancelled - Patient discharged Performed By: #### L 500.2500, L100.0500 ####[facility] [address] [place], [address] Basic Metabolic Profile (BMP) Normal 136-145 [facility] [facility] Comment on above: Result Comment: Canc elled via OM: Order cancelled - Patient discharged Performed By: #### L 500.2500, L100.0500 ####[facility] [address] [place], [address] BUN/CRE 36.8 RATIO High 10-20 [facility] Comment on above: Performed By: #### L 100.0100, L500.2500 ####[facility] [address] [place], [address] CA,Total 8.9 mg/dL Normal 8.5-10.1 [facility] Comment on above: Performed By: #### L 100.0100, L500.2500 ####[facility] [address] [place], [address] Chloride [Moles/Vol] 106 mmol/L Normal 98-107 [facility] Comment on above: Performed By: #### L 100.0100, L500.2500 ####[facility] [address] [place], [address] CO2 [Moles/Vol] 23.0 mmol/L Normal 21.0-32.0 [facility] Comment on above: Performed By: #### L 100.0100, L500.2500 ####[facility] [address] [place], [address] Creatinine [Mass/Vol] 0.71 mg/dL Normal 0.55-1.02 [facility] Comment on above: Result Comment: The validity of the calculated GFR GFRAA in patients over70 years has not been determined. Clinical correlation isessential. Performed By: #### L 100.0100, L500.2500 ####[facility] [address] [place], [address] ECRCL 50.11 ml/min Normal [facility] Comment on above: Performed By: #### L 100.0100, L500.2500 ####[facility] [address] [place], [address] EST GFR - AA 103 mL/min Normal >60 [facility] Comment on above: Result Comment: Afri can Grenadian GFR Calc Performed By: #### L 100.0100, L500.2500 ####[facility] [address] [place], [address] GAP 6 Normal 5-15 [facility] Comment on above: Performed By: #### L 100.0100, L500.2500 ####[facility] [address] [place], [address] GFR/1.73 sq M.predicted among non-blacks MDRD (S/P/Bld) [Vol rate/Area] 85 mL/min/{1.73_m2} Normal >60 [facility] Comment on above: Result Comment: Non- GFR Calc Performed By: #### L 100.0100, L500.2500 ####[facility] [address] [place], [address] Glucose [Mass/Vol] 108 mg/dL High 74-106 [facility] Comment on above: Result Comment: Fast ing Glucose result from 100 to 125 mg/dLsuggests IMPAIRED HOMEOSTASIS per A.D.A. criteria. Performed By: #### L 100.0100, L500.2500 ####[facility] [address] [place], [address] Potassium [Moles/Vol] 4.2 mmol/L Normal 3.5-5.1 [facility] Comment on above: Performed By: #### L 100.0100, L500.2500 ####[facility] [address] [place], [address] Sodium [Moles/Vol] 135 mmol/L Low 136-145 [facility] Comment on above: Performed By: #### L 100.0100, L500.2500 ####[facility] [address] [place], [address] Urea nitrogen [Mass/Vol] 26 mg/dL High 7-18 [facility] Comment on above: Performed By: #### L 100.0100, L500.2500 ####[facility] [address] [place], [address] CBC W/Diff, Automatedon 03-31 Absolute Lymph 1.39 X10 3/uL Normal 0.83-4.51 [facility] Comment on above: Performed By: #### L 100.0100, L500.2500 ####[facility] [address] [place], [address] Absolute Neut 5.3 X10 3/uL Normal 2.0-7.7 [facility] Comment on above: Performed By: #### L 100.0100, L500.2500 ####[facility] [address] [place], [address] Basophils/100 WBC (Bld) 0.3 % Normal 0-1 [facility] Comment on above: Performed By: #### L 100.0100, L500.2500 ####[facility] [address] [place], [address] Eosinophils/100 WBC (Bld) 0.3 % Normal 0-5 [facility] Comment on above: Performed By: #### L 100.0100, L500.2500 ####[facility] [address] [place], [address] Erythrocyte distribution width (RBC) [Ratio] 13.0 % Normal 11.6-14.6 [facility] Comment on above: Performed By: #### L 100.0100, L500.2500 ####[facility] [address] [place], [address] Hematocrit (Bld) [Volume fraction] 35.2 % Low 37-47 [facility] Comment on above: Performed By: #### L 100.0100, L500.2500 ####[facility] [address] [place], [address] Hemoglobin (Bld) [Mass/Vol] 11.4 g/dL Low 12.0-15. 0 [facility] Comment on above: Performed By: #### L 100.0100, L500.2500 ####[facility] [address] [place], [address] IG% 0.300 Normal 0.0-0.9 [facility] Comment on above: Result Comment: IG% - Immature Granulocytes (promyelocytes, myelocytes andmetamyelocytes) > 1% indicates that a LEFT SHIFT is Present. Performed By: #### L 100.0100, L500.2500 ####[facility] [address] [place], [address] Lymphocytes/100 WBC (Bld) 18.8 % Low 19-41 [facility] Comment on above: Performed By: #### L 100.0100, L500.2500 ####[facility] [address] [place], [address] MCH (RBC) [Entitic mass] 31.7 pg Normal 27.0-32.0 [facility] Comment on above: Performed By: #### L 100.0100, L500.2500 ####[facility] [address] [place], [address] MCHC (RBC) [Mass/Vol] 32.4 g/dL Normal 32-36 [facility] Comment on above: Performed By: #### L 100.0100, L500.2500 ####[facility] [address] [place], [address] MCV (RBC) [Entitic vol] 97.8 fL Normal 81-99 [facility] Comment on above: Performed By: #### L 100.0100, L500.2500 ####[facility] [address] [place], [address] Monocytes/100 WBC (Bld) 8.3 % Normal 0-10 [facility] Comment on above: Performed By: #### L 100.0100, L500.2500 ####[facility] [address] [place], [address] Neutrophils/100 WBC (Bld) 72.0 % High 47-70 [facility] Comment on above: Performed By: #### L 100.0100, L500.2500 ####[facility] [address] [place], [address] Nucleated RBC (Bld) [#/Vol] 0 10*3/uL Normal 0-5 [facility] Comment on above: Performed By: #### L 100.0100, L500.2500 ####[facility] [address] [place], [address] Platelet mean volume (Bld) [Entitic vol] 9.0 fL Normal 6.2-12.0 [facility] Comment on above: Performed By: #### L 100.0100, L500.2500 ####[facility] [address] [place], [address] Platelets (Bld) [#/Vol] 261 10*3/uL Normal 150-450 [facility] Comment on above: Performed By: #### L 100.0100, L500.2500 ####[facility] [address] [place], [address] RBC (Bld) [#/Vol] 3.60 10*6/uL Low 4.2-5.4 [facility] Comment on above: Performed By: #### L 100.0100, L500.2500 ####[facility] [address] [place], [address] RDW SD 46.8 fl High 35.1-43.9 [facility] Comment on above: Performed By: #### L 100.0100, L500.2500 ####[facility] [address] [place], [address] WBC (Bld) [#/Vol] 7.4 10*3/uL Normal 4.4-11.0 [facility] Comment on above: Performed By: #### L 100.0100, L500.2500 ####[facility] [address] [place], [address] CBC-Complete Blood Cnt No Di ffon 04-17-2024 HCT Normal 37-47 [facility] Comment on above: Result Comment: Canc elled via OM: Order cancelled - Patient discharged Performed By: #### L 500.2500, L100.0500 ####[facility] [address] [place], [address] HGB Normal 12.0-15.0 [facility] Comment on above: Result Comment: Canc elled via OM: Order cancelled - Patient discharged Performed By: #### L 500.2500, L100.0500 ####[facility] [address] [place], [address] MCH Normal 27.0-32.0 [facility] Comment on above: Result Comment: Canc elled via OM: Order cancelled - Patient discharged Performed By: #### L 500.2500, L100.0500 ####[facility] [address] [place], [address] MCHC Normal 32-36 [facility] Comment on above: Result Comment: Canc elled via OM: Order cancelled - Patient discharged Performed By: #### L 500.2500, L100.0500 ####[facility] [address] [place], [address] MCV Normal 81-99 [facility] Comment on above: Result Comment: Canc elled via OM: Order cancelled - Patient discharged Performed By: #### L 500.2500, L100.0500 ####[facility] [address] [place], [address] PLT Normal 150-450 [facility] Comment on above: Result Comment: Canc elled via OM: Order cancelled - Patient discharged Performed By: #### L 500.2500, L100.0500 ####[facility] [address] [place], [address] RBC Normal 4.2-5.4 [facility] Comment on above: Result Comment: Canc elled via OM: Order cancelled - Patient discharged Performed By: #### L 500.2500, L100.0500 ####[facility] [address] [place], [address] RDW CV Normal 11.6-14.6 [facility] Comment on above: Result Comment: Canc elled via OM: Order cancelled - Patient discharged Performed By: #### L 500.2500, L100.0500 ####[facility] [address] [place], [address] RDW SD Normal 35.1-43.9 [facility] Comment on above: Result Comment: Canc elled via OM: Order cancelled - Patient discharged Performed By: #### L 500.2500, L100.0500 ####[facility] [address] [place], [address] WBC Normal 4.4-11.0 [facility] Comment on above: Result Comment: Canc elled via OM: Order cancelled - Patient discharged Performed By: #### L 500.2500, L100.0500 ####[facility] [address] [place], [address] Basic Metabolic Profile (BMP )on 04-16-2024 BUN/CRE 31.0 RATIO High 10-20 [facility] Comment on above: Performed By: #### L 500.2500, L100.0500 ####[facility] [address] [place], [address] CA,Total 9.3 mg/dL Normal 8.5-10.1 [facility] Comment on above: Performed By: #### L 500.2500, L100.0500 ####[facility] [address] [place], [address] Chloride [Moles/Vol] 107 mmol/L Normal 98-107 [facility] Comment on above: Performed By: #### L 500.2500, L100.0500 ####[facility] [address] [place], [address] CO2 [Moles/Vol] 25.0 mmol/L Normal 21.0-32.0 [facility] Comment on above: Performed By: #### L 500.2500, L100.0500 ####[facility] [address] [place], [address] Creatinine [Mass/Vol] 0.68 mg/dL Normal 0.55-1.02 [facility] Comment on above: Result Comment: The validity of the calculated GFR GFRAA in patients over70 years has not been determined. Clinical correlation isessential. Performed By: #### L 500.2500, L100.0500 ####[facility] [address] [place], [address] ECRCL 50.81 ml/min Normal [facility] Comment on above: Performed By: #### L 500.2500, L100.0500 ####[facility] [address] [place], [address] EST GFR - AA 108 mL/min Normal >60 [facility] Comment on above: Result Comment: Afri can Grenadian GFR Calc Performed By: #### L 500.2500, L100.0500 ####[facility] [address] [place], [address] GAP 5 Normal 5-15 [facility] Comment on above: Performed By: #### L 500.2500, L100.0500 ####[facility] [address] [place], [address] GFR/1.73 sq M.predicted among non-blacks MDRD (S/P/Bld) [Vol rate/Area] 89 mL/min/{1.73_m2} Normal >60 [facility] Comment on above: Result Comment: Non- GFR Calc Performed By: #### L 500.2500, L100.0500 ####[facility] [address] [place], [address] Glucose [Mass/Vol] 113 mg/dL High 74-106 [facility] Comment on above: Result Comment: Fast ing Glucose result from 100 to 125 mg/dLsuggests IMPAIRED HOMEOSTASIS per A.D.A. criteria. Performed By: #### L 500.2500, L100.0500 ####[facility] [address] [place], [address] Potassium [Moles/Vol] 4.5 mmol/L Normal 3.5-5.1 [facility] Comment on above: Performed By: #### L 500.2500, L100.0500 ####[facility] [address] [place], [address] Sodium [Moles/Vol] 137 mmol/L Normal 136-145 [facility] Comment on above: Performed By: #### L 500.2500, L100.0500 ####[facility] [address] [place], [address] Urea nitrogen [Mass/Vol] 21 mg/dL High 7-18 [facility] Comment on above: Performed By: #### L 500.2500, L100.0500 ####[facility] [address] [place], [address] Blood urea nitrogen (BUN)/cr eatinine ratioOrdered By: Lesli Watkins on 04-16-2024 Urea nitrogen/Creatinine [Mass ratio] 31.0 mg/mg High 10-20 [facility] Blood urea nitrogen (BUN)/creatinine ratio 31.0 RATIO High 10-20 [facility] CBC-Complete Blood Cnt No Di ffon 04-16-2024 Erythrocyte distribution width (RBC) [Ratio] 13.0 % Normal 11.6-14.6 [facility] Comment on above: Performed By: #### L 500.2500, L100.0500 ####[facility] [address] [place], [address] Hematocrit (Bld) [Volume fraction] 36.8 % Low 37-47 [facility] Comment on above: Performed By: #### L 500.2500, L100.0500 ####[facility] [address] [place], [address] Hemoglobin (Bld) [Mass/Vol] 11.9 g/dL Low 12.0-15. 0 [facility] Comment on above: Performed By: #### L 500.2500, L100.0500 ####[facility] [address] [place], [address] MCH (RBC) [Entitic mass] 31.6 pg Normal 27.0-32.0 [facility] Comment on above: Performed By: #### L 500.2500, L100.0500 ####[facility] [address] [place], [address] MCHC (RBC) [Mass/Vol] 32.3 g/dL Normal 32-36 [facility] Comment on above: Performed By: #### L 500.2500, L100.0500 ####[facility] [address] [place], [address] MCV (RBC) [Entitic vol] 97.6 fL Normal 81-99 [facility] Comment on above: Performed By: #### L 500.2500, L100.0500 ####[facility] [address] [place], [address] Platelet mean volume (Bld) [Entitic vol] 8.8 fL Normal 6.2-12.0 [facility] Comment on above: Performed By: #### L 500.2500, L100.0500 ####[facility] [address] [place], [address] Platelets (Bld) [#/Vol] 252 10*3/uL Normal 150-450 [facility] Comment on above: Performed By: #### L 500.2500, L100.0500 ####[facility] [address] [place], [address] RBC (Bld) [#/Vol] 3.77 10*6/uL Low 4.2-5.4 [facility] Comment on above: Performed By: #### L 500.2500, L100.0500 ####[facility] [address] [place], [address] RDW SD 46.3 fl High 35.1-43.9 [facility] Comment on above: Performed By: #### L 500.2500, L100.0500 ####[facility] [address] [place], [address] WBC (Bld) [#/Vol] 8.7 10*3/uL Normal 4.4-11.0 [facility] Comment on above: Performed By: #### L 500.2500, L100.0500 ####[facility] [address] [place], [address] Calcium [Mass/Vol]Ordered By : Lseli Watkins on 04-16-2024 Serum or plasma calcium measurement (mass/volume) 9.3 mg/dL 8.5-10.1 [facility] Carbon dioxide measurementOr dered By: Lesli Watkins on 04-16-2024 CO2 [Moles/Vol] 25.0 mmol/L 21.0-32.0 [facility] Carbon dioxide measurement 25.0 mmol/L 21.0-32. 0 [facility] Chloride measurementOrdered By: Lesli Watkins on 04-16-2024 Chloride [Moles/Vol] 107 mmol/L 98-107 [facility] Chloride measurement 107 mmol/L 98-107 [facility] Creatinine [Mass/Vol]Ordered By: Lesli Watkins on 04-16-2024 Serum or plasma creatinine measurement (mass/volume) 0.68 mg/dL 0.55-1.02 [facility] Erythrocyte distribution wid th (RBC) [Ratio]Ordered By: Lesli Watkins on 04-16-2024 Erythrocyte distribution width ratio 13.0 % 11.6-14.6 [facility] Erythrocyte distribution width (RBC) [Entitic vol] 46.3 fL High 35.1-43.9 [facility] Erythrocyte distribution width standard deviation 46.3 fl High 35.1-43.9 [facility] Erythrocyte distribution wid th ratioOrdered By: Lesli Watkins on 04-16-2024 Erythrocyte distribution width (RBC) [Ratio] 13.0 % 11.6-14.6 [facility] Erythrocyte distribution wid th standard deviationOrdered By: Lesli Watkins on 04-16-2024 Erythrocyte distribution width (RBC) [Ratio] 46.3 fl High 35.1-43.9 [facility] Estimated glomerular filtrat ion rate (GFR) AmericanOrdered By: Lesli Watkins on 04-16-2024 Estimated GFR (MDRD) Amer 108 mL/min >60 [facility] Comment on above: GFR Calc Estimated glomerular filtration rate (GFR) 108 mL/min >60 [facility] Estimation of creatinine bharat aranceOrdered By: Lesli Watkins on 04-16-2024 Estimated Creatinine Clearance Calc 50.81 ml/min [facility] Estimation of creatinine clearance 50.81 ml/min [facility] Glomerular filtration rate ( GFR) estimationOrdered By: Lesli Watkins on 04-16-2024 Estimated GFR (MDRD) Non-Af Amer 89 mL/min >60 [facility] Comment on above: Non- GFR Calc GFR/1.73 sq M.predicted among non-blacks MDRD (S/P/Bld) [Vol rate/Area] 89 mL/min/{1.73_m2} >60 [facility] Glomerular filtration rate (GFR) estimation 89 mL/min >60 [facility] Glucose measurementOrdered B y: Lesli Watkins on 04-16-2024 Glucose [Mass/Vol] 113 mg/dL High 74-106 [facility] Comment on above: Fasting Glucose resu lt from 100 to 125 mg/dL suggests IMPAIRED HOMEOSTASIS per A.D.A. criteria. Glucose measurement 113 mg/dL High 74-106 [facility] Hematocrit Auto (Bld) [Volum e fraction]Ordered By: Lesli Watkins on 04-16-2024 Hematocrit (Bld) [Volume fraction] 36.8 % Low 37-47 [facility] Automated blood hematocrit (percentage) 36.8 % Low 37-47 [facility] Hemoglobin measurementOrdere d By: Lesli Watkins on 04-16-2024 Hemoglobin (Bld) [Mass/Vol] 11.9 g/dL Low 12.0-15. 0 [facility] Hemoglobin measurement 11.9 g/dL Low 12.0-15.0 [facility] MCV (RBC) [Entitic vol]Order ed By: Lesli Watkins on 04-16-2024 MCV (mean corpuscular volume) determination 97.6 fL 81-99 [facility] MCV (mean corpuscular volume ) determinationOrdered By: Lesli Watkins on 04-16-2024 MCV (RBC) [Entitic vol] 97.6 fL 81-99 [facility] Mean corpuscular hemoglobin (MCH) determinationOrdered By: Lesli Watkins on 04-16-2024 MCH (RBC) [Entitic mass] 31.6 pg 27.0-32.0 [facility] Mean corpuscular hemoglobin (MCH) determination 31.6 pg 27.0-32.0 [facility] Mean corpuscular hemoglobin concentration (MCHC) determinationOrdered By: Lesli Watkins on 04-16-2024 MCHC (RBC) [Mass/Vol] 32.3 g/dL 32-36 [facility] Mean corpuscular hemoglobin concentration (MCHC) determination 32.3 g/dL 32-36 [facility] Mean platelet volume determi nationOrdered By: Lesli Watkins on 04-16-2024 Platelet mean volume (Bld) [Entitic vol] 8.8 fL 6.2-12.0 [facility] Mean platelet volume determination 8.8 fl 6.2-12.0 [facility] Platelet countOrdered By: Gaby Watkins on 04-16-2024 Platelets (Bld) [#/Vol] 252 10*3/uL 150-450 [facility] Platelet count 252 K/mm3 150-450 [facility] Potassium measurementOrdered By: Lesli Watkins on 04-16-2024 Potassium [Moles/Vol] 4.5 mmol/L 3.5-5.1 [facility] Potassium measurement 4.5 mmol/L 3.5-5.1 [facility] RBC Auto (Bld) [#/Vol]Ordere d By: Lesli Watkins on 04-16-2024 RBC (Bld) [#/Vol] 3.77 10*6/uL Low 4.2-5.4 [facility] Automated blood erythrocyte count 3.77 M/mm3 Low 4.2-5.4 [facility] Serum anion gap measurementO rdered By: Lesli Watkins on 04-16-2024 Anion gap [Moles/Vol] 5 mmol/L 5-15 [facility] Serum anion gap measurement 5 5-15 [facility] Serum or plasma calcium iganluca urement (mass/volume)Ordered By: Lesli Watkins on 04-16-2024 Calcium [Mass/Vol] 9.3 mg/dL 8.5-10.1 [facility] Serum or plasma creatinine m easurement (mass/volume)Ordered By: Lesli Watkins on 04-16-2024 Creatinine [Mass/Vol] 0.68 mg/dL 0.55-1.02 [facility] Comment on above: The validity of the calculated GFR & GFRAA in patients over 70 years has not been determined. Clinical correlation is essential. Serum or plasma urea nitroge n measurement (mass/volume)Ordered By: Lesli Watkins on 04-16-2024 Urea nitrogen [Mass/Vol] 21 mg/dL High 7-18 [facility] Sodium levelOrdered By: Zeus Watkins on 04-16-2024 Sodium [Moles/Vol] 137 mmol/L 136-145 [facility] Sodium level 137 mmol/L 136-145 [facility] Urea nitrogen [Mass/Vol]Orde red By: Lesli Watkins on 04-16-2024 Serum or plasma urea nitrogen measurement (mass/volume) 21 mg/dL High 7-18 [facility] White blood cell (WBC) count Ordered By: Lesli Watkins on 04-16-2024 WBC (Bld) [#/Vol] 8.7 10*3/uL 4.4-11.0 [facility] White blood cell (WBC) count 8.7 K/mm3 4.4-11.0 [facility] Basic Metabolic Profile (BMP )on 04-15-2024 BUN/CRE 27.9 RATIO High 10-20 [facility] Comment on above: Performed By: #### L 500.2500, L100.0500 ####[facility] [address] [place], [address] CA,Total 9.2 mg/dL Normal 8.5-10.1 [facility] Comment on above: Performed By: #### L 500.2500, L100.0500 ####[facility] [address] [place], [address] Chloride [Moles/Vol] 107 mmol/L Normal 98-107 [facility] Comment on above: Performed By: #### L 500.2500, L100.0500 ####[facility] [address] [place], [address] CO2 [Moles/Vol] 26.0 mmol/L Normal 21.0-32.0 [facility] Comment on above: Performed By: #### L 500.2500, L100.0500 ####[facility] [address] [place], [address] Creatinine [Mass/Vol] 0.68 mg/dL Normal 0.55-1.02 [facility] [place] Comment on above: Result Comment: The validity of the calculated GFR GFRAA in patients over70 years has not been determined. Clinical correlation isessential. Performed By: #### L 500.2500, L100.0500 ####[facility] [address] [place], [address] ECRCL 50.81 ml/min Normal [facility] Comment on above: Performed By: #### L 500.2500, L100.0500 ####[facility] [address] [place], [address] EST GFR - AA 107 mL/min Normal >60 [facility] Comment on above: Result Comment: Afri can Grenadian GFR Calc Performed By: #### L 500.2500, L100.0500 ####[facility] [address] [place], [address] GAP 5 Normal 5-15 [facility] Comment on above: Performed By: #### L 500.2500, L100.0500 ####[facility] [address] [place], [address] GFR/1.73 sq M.predicted among non-blacks MDRD (S/P/Bld) [Vol rate/Area] 89 mL/min/{1.73_m2} Normal >60 [facility] Comment on above: Result Comment: Non- GFR Calc Performed By: #### L 500.2500, L100.0500 ####[facility] [address] [place], [address] Glucose [Mass/Vol] 119 mg/dL High 74-106 [facility] Comment on above: Result Comment: Fast ing Glucose result from 100 to 125 mg/dLsuggests IMPAIRED HOMEOSTASIS per A.D.A. criteria. Performed By: #### L 500.2500, L100.0500 ####[facility] [address] [place], [address] Potassium [Moles/Vol] 4.4 mmol/L Normal 3.5-5.1 [facility] [place] Comment on above: Performed By: #### L 500.2500, L100.0500 ####[facility] [address] [place], [address] Sodium [Moles/Vol] 138 mmol/L Normal 136-145 [facility] Comment on above: Performed By: #### L 500.2500, L100.0500 ####[facility] [address] [place], [address] Urea nitrogen [Mass/Vol] 19 mg/dL High 7-18 [facility] Comment on above: Performed By: #### L 500.2500, L100.0500 ####[facility] [address] [place], [address] CBC-Complete Blood Cnt No Di ffon 04-15-2024 Erythrocyte distribution width (RBC) [Ratio] 13.0 % Normal 11.6-14.6 [facility] Comment on above: Performed By: #### L 500.2500, L100.0500 ####[facility] [address] [place], [address] Hematocrit (Bld) [Volume fraction] 37.2 % Normal 37-47 [facility] Comment on above: Performed By: #### L 500.2500, L100.0500 ####[facility] [address] [place], [address] Hemoglobin (Bld) [Mass/Vol] 12.2 g/dL Normal 12.0-15. 0 [facility] Comment on above: Performed By: #### L 500.2500, L100.0500 ####[facility] [address] [place], [address] MCH (RBC) [Entitic mass] 31.9 pg Normal 27.0-32.0 [facility] Comment on above: Performed By: #### L 500.2500, L100.0500 ####[facility] [address] [place], [address] MCHC (RBC) [Mass/Vol] 32.8 g/dL Normal 32-36 [facility] [place] Comment on above: Performed By: #### L 500.2500, L100.0500 ####[facility] [address] [place], [address] MCV (RBC) [Entitic vol] 97.4 fL Normal 81-99 [facility] Comment on above: Performed By: #### L 500.2500, L100.0500 ####[facility] [address] [place], [address] Platelet mean volume (Bld) [Entitic vol] 8.9 fL Normal 6.2-12.0 [facility] Comment on above: Performed By: #### L 500.2500, L100.0500 ####[facility] [address] [place], [address] Platelets (Bld) [#/Vol] 281 10*3/uL Normal 150-450 [facility] Comment on above: Performed By: #### L 500.2500, L100.0500 ####[facility] [address] [place], [address] RBC (Bld) [#/Vol] 3.82 10*6/uL Low 4.2-5.4 [facility] Comment on above: Performed By: #### L 500.2500, L100.0500 ####[facility] [address] [place], [address] RDW SD 46.1 fl High 35.1-43.9 [facility] Comment on above: Performed By: #### L 500.2500, L100.0500 ####[facility] [address] [place], [address] WBC (Bld) [#/Vol] 9.4 10*3/uL Normal 4.4-11.0 [facility] Comment on above: Performed By: #### L 500.2500, L100.0500 ####[facility] [address] [place], [address] 12 Lead EKGon 04-14-2024 12 Lead EKG Normal [facility] Basic Metabolic Profile (BMP )on 04-14-2024 BUN/CRE 25.0 RATIO High 10-20 [facility] Comment on above: Performed By: #### L 100.0500, L500.2500 ####[facility] [address] [place], [address] CA,Total 8.8 mg/dL Normal 8.5-10.1 [facility] Comment on above: Performed By: #### L 100.0500, L500.2500 ####[facility] [address] [place], [address] Chloride [Moles/Vol] 106 mmol/L Normal 98-107 [facility] Comment on above: Performed By: #### L 100.0500, L500.2500 ####[facility] [address] [place], [address] CO2 [Moles/Vol] 27.0 mmol/L Normal 21.0-32.0 [facility] Comment on above: Performed By: #### L 100.0500, L500.2500 ####[facility] [address] [place], [address] Creatinine [Mass/Vol] 0.80 mg/dL Normal 0.55-1.02 [facility] [place] Comment on above: Result Comment: The validity of the calculated GFR GFRAA in patients over70 years has not been determined. Clinical correlation isessential. Performed By: #### L 100.0500, L500.2500 ####[facility] [address] [place], [address] ECRCL 50.81 ml/min Normal [facility] Comment on above: Performed By: #### L 100.0500, L500.2500 ####[facility] [address] [place], [address] EST GFR - AA 89 mL/min Normal >60 [facility] Comment on above: Result Comment: Afri can [place] GFR Calc Performed By: #### L 100.0500, L500.2500 ####[facility] [address] [place], [address] GAP 4 Low 5-15 [facility] Comment on above: Performed By: #### L 100.0500, L500.2500 ####[facility] [address] [place], [address] GFR/1.73 sq M.predicted among non-blacks MDRD (S/P/Bld) [Vol rate/Area] 74 mL/min/{1.73_m2} Normal >60 [facility] Comment on above: Result Comment: Non- GFR Calc Performed By: #### L 100.0500, L500.2500 ####[facility] [address] [place], [address] Glucose [Mass/Vol] 93 mg/dL Normal 74-106 [facility] Comment on above: Performed By: #### L 100.0500, L500.2500 ####[facility] [address] [place], [address] Potassium [Moles/Vol] 4.3 mmol/L Normal 3.5-5.1 [facility] Comment on above: Performed By: #### L 100.0500, L500.2500 ####[facility] [address] [place], [address] Sodium [Moles/Vol] 138 mmol/L Normal 136-145 [facility] Comment on above: Performed By: #### L 100.0500, L500.2500 ####[facility] [address] [place], [address] Urea nitrogen [Mass/Vol] 20 mg/dL High 7-18 [facility] Comment on above: Performed By: #### L 100.0500, L500.2500 ####[facility] [address] [place], [address] CBC-Complete Blood Cnt No Di ffon 04-14-2024 Erythrocyte distribution width (RBC) [Ratio] 13.1 % Normal 11.6-14.6 [facility] Comment on above: Performed By: #### L 100.0500, L500.2500 ####[facility] [address] [place], [address] Hematocrit (Bld) [Volume fraction] 36.1 % Low 37-47 [facility] Comment on above: Performed By: #### L 100.0500, L500.2500 ####[facility] [address] [place], [address] Hemoglobin (Bld) [Mass/Vol] 11.6 g/dL Low 12.0-15. 0 [facility] Comment on above: Performed By: #### L 100.0500, L500.2500 ####[facility] [address] [place], [address] MCH (RBC) [Entitic mass] 31.9 pg Normal 27.0-32.0 [facility] Comment on above: Performed By: #### L 100.0500, L500.2500 ####[facility] [address] [place], [address] MCHC (RBC) [Mass/Vol] 32.1 g/dL Normal 32-36 [facility] Comment on above: Performed By: #### L 100.0500, L500.2500 ####[facility] [address] [place], [address] MCV (RBC) [Entitic vol] 99.2 fL High 81-99 [facility] Comment on above: Performed By: #### L 100.0500, L500.2500 ####[facility] [address] [place], [address] Platelet mean volume (Bld) [Entitic vol] 9.0 fL Normal 6.2-12.0 [facility] Comment on above: Performed By: #### L 100.0500, L500.2500 ####[facility] [address] [place], [address] Platelets (Bld) [#/Vol] 269 10*3/uL Normal 150-450 [facility] Comment on above: Performed By: #### L 100.0500, L500.2500 ####[facility] [address] [place], [address] RBC (Bld) [#/Vol] 3.64 10*6/uL Low 4.2-5.4 [facility] Comment on above: Performed By: #### L 100.0500, L500.2500 ####[facility] [address] [place], [address] RDW SD 47.4 fl High 35.1-43.9 [facility] Comment on above: Performed By: #### L 100.0500, L500.2500 ####[facility] [address] [place], [address] WBC (Bld) [#/Vol] 7.1 10*3/uL Normal 4.4-11.0 [facility] Comment on above: Performed By: #### L 100.0500, L500.2500 ####[facility] [address] [place], [address] Lumbar Spine 2 or 3 Viewson 04-14-2024 Lumbar Spine 2 or 3 Views Normal [facility] MR/POSTOP.ANEon 04-14-2024 MR/POSTOP.ANE Normal [facility] MR/ZOMJAQPZ0wm 04-14-2024 MR/POSTOPAN2 Normal [facility] Operative Reporton Operative Report Normal [facility] Basic Metabolic Profile (BMP )on 04-13-2024 BUN/CRE 25.7 RATIO High 10-20 [facility] Comment on above: Performed By: #### L 100.0500, L500.2500 ####[facility] [address] [place], [address] CA,Total 9.0 mg/dL Normal 8.5-10.1 [facility] Comment on above: Performed By: #### L 100.0500, L500.2500 ####[facility] [address] [place], [address] Chloride [Moles/Vol] 107 mmol/L Normal 98-107 [facility] Comment on above: Performed By: #### L 100.0500, L500.2500 ####[facility] [address] [place], [address] CO2 [Moles/Vol] 27.0 mmol/L Normal 21.0-32.0 [facility] Comment on above: Performed By: #### L 100.0500, L500.2500 ####[facility] [address] [place], [address] Creatinine [Mass/Vol] 0.70 mg/dL Normal 0.55-1.02 [facility] Comment on above: Result Comment: The validity of the calculated GFR GFRAA in patients over70 years has not been determined. Clinical correlation isessential. Performed By: #### L 100.0500, L500.2500 ####[facility] [address] [place], [address] ECRCL 50.81 ml/min Normal [facility] Comment on above: Performed By: #### L 100.0500, L500.2500 ####[facility] [address] [place], [address] EST GFR - AA 104 mL/min Normal >60 [facility] Comment on above: Result Comment: Afri can Grenadian GFR Calc Performed By: #### L 100.0500, L500.2500 ####[facility] [address] [place], [address] GAP 5 Normal 5-15 [facility] Comment on above: Performed By: #### L 100.0500, L500.2500 ####[facility] [address] [place], [address] GFR/1.73 sq M.predicted among non-blacks MDRD (S/P/Bld) [Vol rate/Area] 86 mL/min/{1.73_m2} Normal >60 [facility] Comment on above: Result Comment: Non- GFR Calc Performed By: #### L 100.0500, L500.2500 ####[facility] [address] [place], [address] Glucose [Mass/Vol] 94 mg/dL Normal 74-106 [facility] Comment on above: Performed By: #### L 100.0500, L500.2500 ####[facility] [address] [place], [address] Potassium [Moles/Vol] 4.1 mmol/L Normal 3.5-5.1 [facility] Comment on above: Performed By: #### L 100.0500, L500.2500 ####[facility] [address] [place], [address] Sodium [Moles/Vol] 139 mmol/L Normal 136-145 [facility] Comment on above: Performed By: #### L 100.0500, L500.2500 ####[facility] [address] [place], [address] Urea nitrogen [Mass/Vol] 18 mg/dL Normal 7-18 [facility] Comment on above: Performed By: #### L 100.0500, L500.2500 ####[facility] [address] [place], [address] CBC-Complete Blood Cnt No Di ffon 04-13-2024 Erythrocyte distribution width (RBC) [Ratio] 13.1 % Normal 11.6-14.6 [facility] Comment on above: Performed By: #### L 100.0500, L500.2500 ####[facility] [address] [place], [address] Hematocrit (Bld) [Volume fraction] 37.7 % Normal 37-47 [facility] Comment on above: Performed By: #### L 100.0500, L500.2500 ####[facility] [address] [place], [address] Hemoglobin (Bld) [Mass/Vol] 12.2 g/dL Normal 12.0-15. 0 [facility] Comment on above: Performed By: #### L 100.0500, L500.2500 ####[facility] [address] [place], [address] MCH (RBC) [Entitic mass] 32.0 pg Normal 27.0-32.0 [facility] Comment on above: Performed By: #### L 100.0500, L500.2500 ####[facility] [address] [place], [address] MCHC (RBC) [Mass/Vol] 32.4 g/dL Normal 32-36 [facility] Comment on above: Performed By: #### L 100.0500, L500.2500 ####[facility] [address] [place], [address] MCV (RBC) [Entitic vol] 99.0 fL Normal 81-99 [facility] Comment on above: Performed By: #### L 100.0500, L500.2500 ####[facility] [address] [place], [address] Platelet mean volume (Bld) [Entitic vol] 9.0 fL Normal 6.2-12.0 [facility] Comment on above: Performed By: #### L 100.0500, L500.2500 ####[facility] [address] [place], [address] Platelets (Bld) [#/Vol] 267 10*3/uL Normal 150-450 [facility] Comment on above: Performed By: #### L 100.0500, L500.2500 ####[facility] [address] [place], [address] RBC (Bld) [#/Vol] 3.81 10*6/uL Low 4.2-5.4 [facility] Comment on above: Performed By: #### L 100.0500, L500.2500 ####[facility] [address] [place], [address] RDW SD 47.2 fl High 35.1-43.9 [facility] Comment on above: Performed By: #### L 100.0500, L500.2500 ####[facility] [address] [place], [address] WBC (Bld) [#/Vol] 6.6 10*3/uL Normal 4.4-11.0 [facility] Comment on above: Performed By: #### L 100.0500, L500.2500 ####[facility] [address] [place], [address] Spine Lumbar (Routine)on Spine Lumbar (Routine) Normal [facility] Absolute lymphocyte countOrd ered By: Lesli Watkins on 04-12-2024 Lymphocytes Auto (Unsp spec) [#/Vol] 1.50 10*3/uL 0.83-4.51 [facility] Absolute neutrophil countOrd ered By: Lesli Watkins on 04-12-2024 Neutrophils (Bld) [#/Vol] 4.5 10*3/uL 2.0-7.7 [facility] Absolute neutrophil count 4.5 X10^3/uL 2.0-7.7 [facility] Automated lymphocyte count a s percentage of total leukocytesOrdered By: Lesli Watkins on 04-12-2024 Lymphocytes/100 WBC Auto (Unsp spec) 21.6 % 19-41 [facility] Basic Metabolic Profile (BMP )on 04-12-2024 BUN/CRE 18.6 RATIO Normal 10-20 [facility] Comment on above: Performed By: #### L 100.0100, L300.3900, L501.9520, L500.2500, L501.5200 ####[facility] [address] [place], [address] CA,Total 9.0 mg/dL Normal 8.5-10.1 [facility] Comment on above: Performed By: #### L 100.0100, L300.3900, L501.9520, L500.2500, L501.5200 ####[facility] [address] [place], [address] Chloride [Moles/Vol] 107 mmol/L Normal 98-107 [facility] Comment on above: Performed By: #### L 100.0100, L300.3900, L501.9520, L500.2500, L501.5200 ####[facility] [address] [place], [address] CO2 [Moles/Vol] 26.0 mmol/L Normal 21.0-32.0 [facility] Comment on above: Performed By: #### L 100.0100, L300.3900, L501.9520, L500.2500, L501.5200 ####[facility] [address] [place], [address] Creatinine [Mass/Vol] 0.81 mg/dL Normal 0.55-1.02 [facility] Comment on above: Result Comment: The validity of the calculated GFR GFRAA in patients over70 years has not been determined. Clinical correlation isessential. Performed By: #### L 100.0100, L300.3900, L501.9520, L500.2500, L501.5200 ####[facility] [address] [place], [address] ECRCL 50.18 ml/min Normal [facility] Comment on above: Performed By: #### L 100.0100, L300.3900, L501.9520, L500.2500, L501.5200 ####[facility] [address] [place], [address] EST GFR - AA 88 mL/min Normal >60 [facility] Comment on above: Result Comment: Afri can [place] GFR Calc Performed By: #### L 100.0100, L300.3900, L501.9520, L500.2500, L501.5200 ####[facility] [address] [place], [address] GAP 6 Normal 5-15 [facility] Comment on above: Performed By: #### L 100.0100, L300.3900, L501.9520, L500.2500, L501.5200 ####[facility] [address] [place], [address] GFR/1.73 sq M.predicted among non-blacks MDRD (S/P/Bld) [Vol rate/Area] 73 mL/min/{1.73_m2} Normal >60 [facility] Comment on above: Result Comment: Non- GFR Calc Performed By: #### L 100.0100, L300.3900, L501.9520, L500.2500, L501.5200 ####[facility] [address] [place], [address] Glucose [Mass/Vol] 95 mg/dL Normal 74-106 [facility] Comment on above: Performed By: #### L 100.0100, L300.3900, L501.9520, L500.2500, L501.5200 ####[facility] [address] [place], [address] Potassium [Moles/Vol] 4.4 mmol/L Normal 3.5-5.1 [facility] Comment on above: Performed By: #### L 100.0100, L300.3900, L501.9520, L500.2500, L501.5200 ####[facility] [address] [place], [address] Sodium [Moles/Vol] 138 mmol/L Normal 136-145 [facility] Comment on above: Performed By: #### L 100.0100, L300.3900, L501.9520, L500.2500, L501.5200 ####[facility] [address] [place], [address] Urea nitrogen [Mass/Vol] 15 mg/dL Normal 7-18 [facility] Comment on above: Performed By: #### L 100.0100, L300.3900, L501.9520, L500.2500, L501.5200 ####[facility] [address] [place], [address] Basophil percentageOrdered B y: Lesli Watkins on 04-12-2024 Basophils/100 WBC (Bld) 0.6 % 0-1 [facility] Basophil percentage 0.6 % 0-1 [facility] CBC W/Diff, Automatedon 03-31 Absolute Lymph 1.50 X10 3/uL Normal 0.83-4.51 [facility] Comment on above: Performed By: #### L 100.0100, L300.3900, L501.9520, L500.2500, L501.5200 ####[facility] [address] [place], [address] Absolute Neut 4.5 X10 3/uL Normal 2.0-7.7 [facility] Comment on above: Performed By: #### L 100.0100, L300.3900, L501.9520, L500.2500, L501.5200 ####[facility] [address] [place], [address] Basophils/100 WBC (Bld) 0.6 % Normal 0-1 [facility] Comment on above: Performed By: #### L 100.0100, L300.3900, L501.9520, L500.2500, L501.5200 ####[facility] [address] [place], [address] Eosinophils/100 WBC (Bld) 1.3 % Normal 0-5 [facility] Comment on above: Performed By: #### L 100.0100, L300.3900, L501.9520, L500.2500, L501.5200 ####[facility] [address] [place], [address] Erythrocyte distribution width (RBC) [Ratio] 13.1 % Normal 11.6-14.6 [facility] Comment on above: Performed By: #### L 100.0100, L300.3900, L501.9520, L500.2500, L501.5200 ####[facility] [address] [place], [address] Hematocrit (Bld) [Volume fraction] 39.0 % Normal 37-47 [facility] Comment on above: Performed By: #### L 100.0100, L300.3900, L501.9520, L500.2500, L501.5200 ####[facility] [address] [place], [address] Hemoglobin (Bld) [Mass/Vol] 12.5 g/dL Normal 12.0-15. 0 [facility] Comment on above: Performed By: #### L 100.0100, L300.3900, L501.9520, L500.2500, L501.5200 ####[facility] [address] [place], [address] IG% 0.400 Normal 0.0-0.9 [facility] Comment on above: Result Comment: IG% - Immature Granulocytes (promyelocytes, myelocytes andmetamyelocytes) > 1% indicates that a LEFT SHIFT is Present. Performed By: #### L 100.0100, L300.3900, L501.9520, L500.2500, L501.5200 ####[facility] [address] [place], [address] Lymphocytes/100 WBC (Bld) 21.6 % Normal 19-41 [facility] Comment on above: Performed By: #### L 100.0100, L300.3900, L501.9520, L500.2500, L501.5200 ####[facility] [address] [place], [address] MCH (RBC) [Entitic mass] 31.7 pg Normal 27.0-32.0 [facility] Comment on above: Performed By: #### L 100.0100, L300.3900, L501.9520, L500.2500, L501.5200 ####[facility] [address] [place], [address] MCHC (RBC) [Mass/Vol] 32.1 g/dL Normal 32-36 [facility] Comment on above: Performed By: #### L 100.0100, L300.3900, L501.9520, L500.2500, L501.5200 ####[facility] [address] [place], [address] MCV (RBC) [Entitic vol] 99.0 fL Normal 81-99 [facility] Comment on above: Performed By: #### L 100.0100, L300.3900, L501.9520, L500.2500, L501.5200 ####[facility] [address] [place], [address] Monocytes/100 WBC (Bld) 10.9 % High 0-10 [facility] Comment on above: Performed By: #### L 100.0100, L300.3900, L501.9520, L500.2500, L501.5200 ####[facility] [address] [place], [address] Neutrophils/100 WBC (Bld) 65.2 % Normal 47-70 [facility] Comment on above: Performed By: #### L 100.0100, L300.3900, L501.9520, L500.2500, L501.5200 ####[facility] [address] [place], [address] Nucleated RBC (Bld) [#/Vol] 0 10*3/uL Normal 0-5 [facility] Comment on above: Performed By: #### L 100.0100, L300.3900, L501.9520, L500.2500, L501.5200 ####[facility] [address] [place], [address] Platelet mean volume (Bld) [Entitic vol] 8.8 fL Normal 6.2-12.0 [facility] Comment on above: Performed By: #### L 100.0100, L300.3900, L501.9520, L500.2500, L501.5200 ####[facility] [address] [place], [address] Platelets (Bld) [#/Vol] 291 10*3/uL Normal 150-450 [facility] Comment on above: Performed By: #### L 100.0100, L300.3900, L501.9520, L500.2500, L501.5200 ####[facility] [address] [place], [address] RBC (Bld) [#/Vol] 3.94 10*6/uL Low 4.2-5.4 [facility] Comment on above: Performed By: #### L 100.0100, L300.3900, L501.9520, L500.2500, L501.5200 ####[facility] [address] [place], [address] RDW SD 47.5 fl High 35.1-43.9 [facility] Comment on above: Performed By: #### L 100.0100, L300.3900, L501.9520, L500.2500, L501.5200 ####[facility] [address] [place], [address] WBC (Bld) [#/Vol] 7.0 10*3/uL Normal 4.4-11.0 [facility] Comment on above: Performed By: #### L 100.0100, L300.3900, L501.9520, L500.2500, L501.5200 ####[facility] [address] [place], [address] Eosinophil percentageOrdered By: Lesli Watkins on 04-12-2024 Eosinophils/100 WBC (Bld) 1.3 % 0-5 [facility] Eosinophil percentage 1.3 % 0-5 [facility] Immature granulocytes/100 WB C Auto (Bld)Ordered By: Lesli Watknis on 04-12-2024 Immature granulocytes/100 WBC (Bld) 0.400 % 0.0-0.9 [facility] Comment on above: IG% - Immature Granu locytes (promyelocytes, myelocytes and metamyelocytes) > 1% indicates that a LEFT SHIFT is Present. Automated immature granulocyte percentage 0.400 % 0.0-0.9 [facility] International normalized rat io (INR) calculationOrdered By: Lesli Watkins on 04-12-2024 INR Coag (Bld) [Relative time] 1.0 {INR} [facility] International normalized ratio (INR) calculation 1.0 [facility] Lymphocytes Auto (Unsp spec) [#/Vol]Ordered By: Lesli Watkins on 04-12-2024 Lymphocytes (Bld) [#/Vol] 1.50 10*3/uL 0.83-4.5 1 [facility] Absolute lymphocyte count 1.50 X10^3/uL 0.83-4. 51 [facility] Lymphocytes/100 WBC Auto (Un sp spec)Ordered By: Lesli Watkins on 04-12-2024 Lymphocytes/100 WBC (Bld) 21.6 % [facility] Automated lymphocyte count as percentage of total leukocytes 21.6 % [facility] Magnesiumon 04-12-2024 Magnesium [Mass/Vol] 2.3 mg/dL Normal 1.6-2.6 [facility] Comment on above: Performed By: #### L 100.0100, L300.3900, L501.9520, L500.2500, L501.5200 ####[facility] [address] [facility] [place], [address] Magnesium measurementOrdered By: Lesli Watkins on 04-12-2024 Magnesium [Mass/Vol] 2.3 mg/dL 1.6-2.6 [facility] Magnesium measurement 2.3 mg/dL 1.6-2.6 [facility] Monocyte percentageOrdered B y: Lesli Watkins on 04-12-2024 Monocytes/100 WBC (Bld) 10.9 % High 0-10 [facility] Monocyte percentage 10.9 % High 0-10 [facility] Neutrophil percentageOrdered By: Lesli Watkins on 04-12-2024 Neutrophils/100 WBC (Bld) 65.2 % 47-70 [facility] Neutrophil percentage 65.2 % 47-70 [facility] Nucleated red blood cell per centageOrdered By: Lesli Watkins on 04-12-2024 Nucleated RBC/100 WBC (Bld) [Ratio] 0 % 0-5 [facility] Nucleated red blood cell percentage 0 % 0-5 [facility] Prothrombin Time w/INRon INR Coag (PPP) [Relative time] 1.0 {INR} Normal [facility] Comment on above: Performed By: #### L 100.0100, L300.3900, L501.9520, L500.2500, L501.5200 ####[facility] [address] [place], [address] PT Coag (PPP) [Time] 13.8 s Normal 11.7-14.9 [facility] Comment on above: Performed By: #### L 100.0100, L300.3900, L501.9520, L500.2500, L501.5200 ####[facility] [address] [place], [address] Prothrombin timeOrdered By: Lesli Watkins on 04-12-2024 PT Coag (PPP) [Time] 13.8 s 11.7-14.9 [facility] Prothrombin time 13.8 SECONDS 11.7-14.9 [facility] Serum or plasma thyroid stim ulating hormone (TSH) measurement (units/volume)Ordered By: Lesli Watkins on 04-12-2024 TSH Qn 0.856 uIU/mL 0.358-3.740 [facility] TSH QnOrdered By: Lesli mccoy on 04-12-2024 Thyroid Stimulating Hormone (TSH) 0.856 uIU/mL 0.358-3.740 [facility] Serum or plasma thyroid stimulating hormone (TSH) measurement (units/volume) 0.856 uIU/mL 0.358-3.740 [facility] Thyroid Stim Hormone (TSH)on 04-12-2024 TSH 0.856 uIU/mL Normal 0.358-3.740 [facility] Comment on above: Performed By: #### L 100.0100, L300.3900, L501.9520, L500.2500, L501.5200 ####[facility] [address] [place], [address] Transvaginal Non-on 04-12-2024 Transvaginal Non- Normal [facility] Basic Metabolic Profile (BMP )on 04-11-2024 BUN/CRE 18.3 RATIO Normal 10-20 [facility] Comment on above: Performed By: #### L 100.0100, L500.2500 ####[facility] [address] [place], [address] CA,Total 9.1 mg/dL Normal 8.5-10.1 [facility] Comment on above: Performed By: #### L 100.0100, L500.2500 ####[facility] [address] [place], [address] Chloride [Moles/Vol] 103 mmol/L Normal 98-107 [facility] Comment on above: Performed By: #### L 100.0100, L500.2500 ####[facility] [address] [place], [address] CO2 [Moles/Vol] 27.0 mmol/L Normal 21.0-32.0 [facility] Comment on above: Performed By: #### L 100.0100, L500.2500 ####[facility] [address] [place], [address] Creatinine [Mass/Vol] 0.76 mg/dL Normal 0.55-1.02 [facility] Comment on above: Result Comment: The validity of the calculated GFR GFRAA in patients over70 years has not been determined. Clinical correlation isessential. Performed By: #### L 100.0100, L500.2500 ####[facility] [address] [place], [address] ECRCL 53.96 ml/min Normal [facility] Comment on above: Performed By: #### L 100.0100, L500.2500 ####[facility] [address] [place], [address] EST GFR - AA 94 mL/min Normal >60 [facility] Comment on above: Result Comment: Afri can [place] GFR Calc Performed By: #### L 100.0100, L500.2500 ####[facility] [address] [place], [address] GAP 6 Normal 5-15 [facility] Comment on above: Performed By: #### L 100.0100, L500.2500 ####[facility] [address] [place], [address] GFR/1.73 sq M.predicted among non-blacks MDRD (S/P/Bld) [Vol rate/Area] 78 mL/min/{1.73_m2} Normal >60 [facility] Comment on above: Result Comment: Non- GFR Calc Performed By: #### L 100.0100, L500.2500 ####[facility] [address] [place], [address] Glucose [Mass/Vol] 97 mg/dL Normal 74-106 [facility] Comment on above: Performed By: #### L 100.0100, L500.2500 ####[facility] [address] [place], [address] Potassium [Moles/Vol] 4.2 mmol/L Normal 3.5-5.1 [facility] Comment on above: Performed By: #### L 100.0100, L500.2500 ####[facility] [address] [place], [address] Sodium [Moles/Vol] 136 mmol/L Normal 136-145 [facility] Comment on above: Performed By: #### L 100.0100, L500.2500 ####[facility] [address] [place], [address] Urea nitrogen [Mass/Vol] 14 mg/dL Normal 7-18 [facility] Comment on above: Performed By: #### L 100.0100, L500.2500 ####[facility] [address] [place], [address] CBC W/Diff, Automatedon 03-31 Absolute Lymph 1.21 X10 3/uL Normal 0.83-4.51 [facility] Comment on above: Performed By: #### L 100.0100, L500.2500 ####[facility] [address] [place], [address] Absolute Neut 5.9 X10 3/uL Normal 2.0-7.7 [facility] Comment on above: Performed By: #### L 100.0100, L500.2500 ####[facility] [address] [place], [address] Basophils/100 WBC (Bld) 0.7 % Normal 0-1 [facility] Comment on above: Performed By: #### L 100.0100, L500.2500 ####[facility] [address] [place], [address] Eosinophils/100 WBC (Bld) 1.0 % Normal 0-5 [facility] Comment on above: Performed By: #### L 100.0100, L500.2500 ####[facility] [address] [place], [address] Erythrocyte distribution width (RBC) [Ratio] 13.0 % Normal 11.6-14.6 [facility] Comment on above: Performed By: #### L 100.0100, L500.2500 ####[facility] [address] [place], [address] Hematocrit (Bld) [Volume fraction] 38.0 % Normal 37-47 [facility] Comment on above: Performed By: #### L 100.0100, L500.2500 ####[facility] [address] [place], [address] Hemoglobin (Bld) [Mass/Vol] 12.7 g/dL Normal 12.0-15. 0 [facility] Comment on above: Performed By: #### L 100.0100, L500.2500 ####[facility] [address] [place], [address] IG% 0.400 Normal 0.0-0.9 [facility] Comment on above: Result Comment: IG% - Immature Granulocytes (promyelocytes, myelocytes andmetamyelocytes) > 1% indicates that a LEFT SHIFT is Present. Performed By: #### L 100.0100, L500.2500 ####[facility] [address] [place], [address] Lymphocytes/100 WBC (Bld) 15.1 % Low 19-41 [facility] Comment on above: Performed By: #### L 100.0100, L500.2500 ####[facility] [address] [place], [address] MCH (RBC) [Entitic mass] 32.4 pg High 27.0-32.0 [facility] Comment on above: Performed By: #### L 100.0100, L500.2500 ####[facility] [address] [place], [address] MCHC (RBC) [Mass/Vol] 33.4 g/dL Normal 32-36 [facility] Comment on above: Performed By: #### L 100.0100, L500.2500 ####[facility] [address] [place], [address] MCV (RBC) [Entitic vol] 96.9 fL Normal 81-99 [facility] Comment on above: Performed By: #### L 100.0100, L500.2500 ####[facility] [address] [place], [address] Monocytes/100 WBC (Bld) 9.0 % Normal 0-10 [facility] Comment on above: Performed By: #### L 100.0100, L500.2500 ####[facility] [address] [place], [address] Neutrophils/100 WBC (Bld) 73.8 % High 47-70 [facility] Comment on above: Performed By: #### L 100.0100, L500.2500 ####[facility] [address] [place], [address] Nucleated RBC (Bld) [#/Vol] 0 10*3/uL Normal 0-5 [facility] Comment on above: Performed By: #### L 100.0100, L500.2500 ####[facility] [address] [place], [address] Platelet mean volume (Bld) [Entitic vol] 9.1 fL Normal 6.2-12.0 [facility] Comment on above: Performed By: #### L 100.0100, L500.2500 ####[facility] [address] [place], [address] Platelets (Bld) [#/Vol] 296 10*3/uL Normal 150-450 [facility] Comment on above: Performed By: #### L 100.0100, L500.2500 ####[facility] [address] [place], [address] RBC (Bld) [#/Vol] 3.92 10*6/uL Low 4.2-5.4 [facility] Comment on above: Performed By: #### L 100.0100, L500.2500 ####[facility] [address] [place], [address] RDW SD 46.2 fl High 35.1-43.9 [facility] Comment on above: Performed By: #### L 100.0100, L500.2500 ####[facility] [address] [place], [address] WBC (Bld) [#/Vol] 8.0 10*3/uL Normal 4.4-11.0 [facility] Comment on above: Performed By: #### L 100.0100, L500.2500 ####[facility] [address] [place], [address] Emergency Department Summary on 04-11-2024 Emergency Department Summary Normal [facility] H AND P Exam - Hospitaliston 04-11-2024 H&P Exam - Hospitalist Normal [facility] Lumbar Spine 2 or 3 Viewson 04-11-2024 Lumbar Spine 2 or 3 Views Normal [facility] Emergency Department Summary on 03-30-2024 Emergency Department Summary Normal [facility] HIP, UNI W/ Pelvis 2-3 Views on 03-30-2024 HIP, UNI W/ Pelvis 2-3 Views Normal [facility] Lumbar Spine 2 or 3 Viewson 03-30-2024 Lumbar Spine 2 or 3 Views Normal [facility] Brain/Head without Contrasto n 02-25-2024 Brain/Head without Contrast Normal [facility] Emergency Department Summary on 02-25-2024 Emergency Department Summary Normal [facility] Spine Cervical without Contr ason 02-25-2024 Spine Cervical without Contras Normal [facility] Gastroenterology Visit Repor ton 02-23-2024 Gastroenterology Visit Report Normal [facility] Re-Evaluation - PT (1)on Re-Evaluation - PT (1) Normal [facility] Dexa Bone Density/Append Ske sergio 01-08-2024 Dexa Bone Density/Append Skel Normal [facility] Inital Evaluation (1) - PTon 12-29-2023 Inital Evaluation (1) - PT Normal [facility] CBC W/Diff, Automatedon 11-29 Absolute Lymph 1.16 X10 3/uL Normal 0.83-4.51 [facility] Comment on above: Performed By: #### L 506.1000, L500.4050, L501.9520, L100.0100, L500.4100 ####[facility] [address], [address] Absolute Neut 3.8 X10 3/uL Normal 2.0-7.7 [facility] Comment on above: Performed By: #### L 506.1000, L500.4050, L501.9520, L100.0100, L500.4100 ####[facility] [address] [place], [address] Basophils/100 WBC (Bld) 0.7 % Normal 0-1 [facility] Comment on above: Performed By: #### L 506.1000, L500.4050, L501.9520, L100.0100, L500.4100 ####[facility] [address] [place], [address] Eosinophils/100 WBC (Bld) 2.1 % Normal 0-5 [facility] Comment on above: Performed By: #### L 506.1000, L500.4050, L501.9520, L100.0100, L500.4100 ####[facility] [address] [place], [address] Erythrocyte distribution width (RBC) [Ratio] 13.0 % Normal 11.6-14.6 [facility] Comment on above: Performed By: #### L 506.1000, L500.4050, L501.9520, L100.0100, L500.4100 ####[facility] [address] [place], [address] Hematocrit (Bld) [Volume fraction] 40.5 % Normal 37-47 [facility] Comment on above: Performed By: #### L 506.1000, L500.4050, L501.9520, L100.0100, L500.4100 ####[facility] [address] [place], [address] Hemoglobin (Bld) [Mass/Vol] 12.8 g/dL Normal 12.0-15. 0 [facility] Comment on above: Performed By: #### L 506.1000, L500.4050, L501.9520, L100.0100, L500.4100 ####[facility] [address] [place], [address] IG% 0.500 Normal 0.0-0.9 [facility] Comment on above: Result Comment: IG% - Immature Granulocytes (promyelocytes, myelocytes andmetamyelocytes) > 1% indicates that a LEFT SHIFT is Present. Performed By: #### L 506.1000, L500.4050, L501.9520, L100.0100, L500.4100 ####[facility] [address] [place], [address] Lymphocytes/100 WBC (Bld) 20.4 % Normal 19-41 [facility] Comment on above: Performed By: #### L 506.1000, L500.4050, L501.9520, L100.0100, L500.4100 ####[facility] [address] [place], [address] MCH (RBC) [Entitic mass] 31.7 pg Normal 27.0-32.0 [facility] Comment on above: Performed By: #### L 506.1000, L500.4050, L501.9520, L100.0100, L500.4100 ####[facility] [address] [place], [address] MCHC (RBC) [Mass/Vol] 31.6 g/dL Low 32-36 [facility] Comment on above: Performed By: #### L 506.1000, L500.4050, L501.9520, L100.0100, L500.4100 ####[facility] [address] [place], [address] MCV (RBC) [Entitic vol] 100.2 fL High 81-99 [facility] Comment on above: Performed By: #### L 506.1000, L500.4050, L501.9520, L100.0100, L500.4100 ####[facility] [address] [place], [address] Monocytes/100 WBC (Bld) 9.3 % Normal 0-10 [facility] Comment on above: Performed By: #### L 506.1000, L500.4050, L501.9520, L100.0100, L500.4100 ####[facility] [address] [place], [address] Neutrophils/100 WBC (Bld) 67.0 % Normal 47-70 [facility] Comment on above: Performed By: #### L 506.1000, L500.4050, L501.9520, L100.0100, L500.4100 ####[facility] [address] [place], [address] Nucleated RBC (Bld) [#/Vol] 0 10*3/uL Normal 0-5 [facility] Comment on above: Performed By: #### L 506.1000, L500.4050, L501.9520, L100.0100, L500.4100 ####[facility] [address] [place], [address] Platelet mean volume (Bld) [Entitic vol] 9.3 fL Normal 6.2-12.0 [facility] Comment on above: Performed By: #### L 506.1000, L500.4050, L501.9520, L100.0100, L500.4100 ####[facility] [address] [place], [address] Platelets (Bld) [#/Vol] 213 10*3/uL Normal 150-450 [facility] Comment on above: Performed By: #### L 506.1000, L500.4050, L501.9520, L100.0100, L500.4100 ####[facility] [address] [place], [address] RBC (Bld) [#/Vol] 4.04 10*6/uL Low 4.2-5.4 [facility] Comment on above: Performed By: #### L 506.1000, L500.4050, L501.9520, L100.0100, L500.4100 ####[facility] [address] [place], [address] RDW SD 48.1 fl High 35.1-43.9 [facility] Comment on above: Performed By: #### L 506.1000, L500.4050, L501.9520, L100.0100, L500.4100 ####[facility] [address] [place], [address] WBC (Bld) [#/Vol] 5.7 10*3/uL Normal 4.4-11.0 [facility] Comment on above: Performed By: #### L 506.1000, L500.4050, L501.9520, L100.0100, L500.4100 ####[facility] [address] [place], [address] Comprehensive Metabolic Prof [facility] 12-15-2023 Albumin [Mass/Vol] 3.4 g/dL Normal 3.2-5.0 [facility] Comment on above: Performed By: #### L 506.1000, L500.4050, L501.9520, L100.0100, L500.4100 ####[facility] [address] [place], [address] Albumin/Globulin [Mass ratio] 0.8 {ratio} Low 0.9-2.4 [facility] Comment on above: Performed By: #### L 506.1000, L500.4050, L501.9520, L100.0100, L500.4100 ####[facility] [address] [place], [address] ALK P 76 U/L Normal 45-117 [facility] Comment on above: Performed By: #### L 506.1000, L500.4050, L501.9520, L100.0100, L500.4100 ####[facility] [address] [place], [address] ALT [Catalytic activity/Vol] 22 U/L Normal 13-56 [facility] Comment on above: Performed By: #### L 506.1000, L500.4050, L501.9520, L100.0100, L500.4100 ####[facility] [address] [place], [address] AST [Catalytic activity/Vol] 20 U/L Normal 15-37 [facility] Comment on above: Performed By: #### L 506.1000, L500.4050, L501.9520, L100.0100, L500.4100 ####[facility] [address] [place], [address] Bilirubin [Mass/Vol] 0.40 mg/dL Normal 0.20-1.00 [facility] Comment on above: Result Comment: For patients on eltrombopag therapy, use of Dimension [place] TBIL is not recommended. Performed By: #### L 506.1000, L500.4050, L501.9520, L100.0100, L500.4100 ####[facility] [address] [place], [address] BUN/CRE 25.6 RATIO High 10-20 [facility] Comment on above: Performed By: #### L 506.1000, L500.4050, L501.9520, L100.0100, L500.4100 ####[facility] [address] [place], [address] CA,Total 9.4 mg/dL Normal 8.5-10.1 [facility] Comment on above: Performed By: #### L 506.1000, L500.4050, L501.9520, L100.0100, L500.4100 ####[facility] [address] [place], [address] Chloride [Moles/Vol] 103 mmol/L Normal 98-107 [facility] Comment on above: Performed By: #### L 506.1000, L500.4050, L501.9520, L100.0100, L500.4100 ####[facility] [address] [place], [address] CO2 [Moles/Vol] 29.0 mmol/L Normal 21.0-32.0 [facility] Comment on above: Performed By: #### L 506.1000, L500.4050, L501.9520, L100.0100, L500.4100 ####[facility] [address] [place], [address] Creatinine [Mass/Vol] 0.78 mg/dL Normal 0.55-1.02 [facility] Comment on above: Result Comment: The validity of the calculated GFR GFRAA in patients over70 years has not been determined. Clinical correlation isessential. Performed By: #### L 506.1000, L500.4050, L501.9520, L100.0100, L500.4100 ####[facility] [address] [place], [address] EST GFR - AA 92 mL/min Normal >60 [facility] Comment on above: Result Comment: Afri can Grenadian GFR Calc Performed By: #### L 506.1000, L500.4050, L501.9520, L100.0100, L500.4100 ####[facility] [address] [place], [address] GAP 6 Normal 5-15 [facility] Comment on above: Performed By: #### L 506.1000, L500.4050, L501.9520, L100.0100, L500.4100 ####[facility] [address] [place], [address] GFR/1.73 sq M.predicted among non-blacks MDRD (S/P/Bld) [Vol rate/Area] 76 mL/min/{1.73_m2} Normal >60 [facility] Comment on above: Result Comment: Non- GFR Calc Performed By: #### L 506.1000, L500.4050, L501.9520, L100.0100, L500.4100 ####[facility] [address] [place], [address] Globulin (S) [Mass/Vol] 4.2 g/dL Normal 2.2-4.2 [facility] Comment on above: Performed By: #### L 506.1000, L500.4050, L501.9520, L100.0100, L500.4100 ####[facility] [address] [place], [address] Glucose [Mass/Vol] 100 mg/dL Normal 74-106 [facility] Comment on above: Result Comment: Fast ing Glucose result from 100 to 125 mg/dLsuggests IMPAIRED HOMEOSTASIS per A.D.A. criteria. Performed By: #### L 506.1000, L500.4050, L501.9520, L100.0100, L500.4100 ####[facility] [address] [place], [address] Potassium [Moles/Vol] 4.2 mmol/L Normal 3.5-5.1 [facility] Comment on above: Performed By: #### L 506.1000, L500.4050, L501.9520, L100.0100, L500.4100 ####[facility] [address] [place], [address] Sodium [Moles/Vol] 138 mmol/L Normal 136-145 [facility] Comment on above: Performed By: #### L 506.1000, L500.4050, L501.9520, L100.0100, L500.4100 ####[facility] [address] [place], [address] T PROT 7.6 g/dL Normal 6.4-8.2 [facility] Comment on above: Performed By: #### L 506.1000, L500.4050, L501.9520, L100.0100, L500.4100 ####[facility] [address] [place], [address] Urea nitrogen [Mass/Vol] 20 mg/dL High 7-18 [facility] Comment on above: Performed By: #### L 506.1000, L500.4050, L501.9520, L100.0100, L500.4100 ####[facility] [address] [place], [address] Lipid Profileon 12-15-2023 Cholesterol [Mass/Vol] 176 mg/dL Normal 200 [facility] Comment on above: Result Comment: <200 mg/dL Desirable 200-240 mg/dL Borderline >240 mg/dL High Risk Performed By: #### L 506.1000, L500.4050, L501.9520, L100.0100, L500.4100 ####[facility] [address] [place], [address] Cholesterol in HDL [Mass/Vol] 74 mg/dL Normal [facility] Comment on above: Result Comment: The drugs N-Acetylcysteine and Metamizole may falselydepress this assay. Reference Range HDL <40 mg/dL Low HDL Cholesterol HDL >or= 60 mg/dL High HDL Cholesterol Performed By: #### L 506.1000, L500.4050, L501.9520, L100.0100, L500.4100 ####[facility] [address] [place], [address] Cholesterol in LDL [Mass/Vol] 93 mg/dL Normal 0-130 [facility] Comment on above: Performed By: #### L 506.1000, L500.4050, L501.9520, L100.0100, L500.4100 ####[facility] [address] [place], [address] Cholesterol in VLDL [Mass/Vol] 9 mg/dL Normal 5-40 [facility] Comment on above: Performed By: #### L 506.1000, L500.4050, L501.9520, L100.0100, L500.4100 ####[facility] [address] [place], [address] Triglyceride [Mass/Vol] 46 mg/dL Normal [facility] Comment on above: Result Comment: The drugs N-Acetylcysteine and Metamizole may falselydepress this assay.Serum Triglycerides Reference Interval Normal <150 mg/dL Borderline high 150 - 199 mg/dL High 200 - 499 mg/dL Very High > or = 500 mg/dL Performed By: #### L 506.1000, L500.4050, L501.9520, L100.0100, L500.4100 ####[facility] [address] [place], [address] Thyroid Stim Hormone (TSH)on 12-15-2023 TSH 0.871 uIU/mL Normal 0.358-3.740 [facility] Comment on above: Performed By: #### L 506.1000, L500.4050, L501.9520, L100.0100, L500.4100 ####[facility] [address] [place], [address] Vitamin D,25 Hydroxyon 12-14 Vitamin D 25-OH 68.6 ng/mL Normal [facility] Comment on above: Result Comment: Yesenia min D 25(OH) Status Range Deficiency <20 ng/mL (50nmol/L) Insufficiency 20 - 30 ng/mL (50 - 75 nmol/L) Sufficiency 30 - 100 ng/mL (75 - 250 nmol/L) Toxicity >100 ng/mL (>250 nmol/L) Performed By: #### L 506.1000, L500.4050, L501.9520, L100.0100, L500.4100 ####[facility] [address] [place], [place], [id number] Cerv Spine 4 or 5 Viewson Cerv Spine 4 or 5 Views Normal [facility] L/S Spine Min 4 Viewson 10-29 L/S Spine Min 4 Views Normal [facility] Orthopedic Visit Reporton Orthopedic Visit Report Normal [facility] Cardiology Visit Reporton Cardiology Visit Report Normal [facility] NCS and/or EMG Patienton NCS and/or EMG Patient Normal [facility] NCS and/or EMG Patienton NCS and/or EMG Patient Normal [facility] Brain without Contraston Brain without Contrast Normal [facility] Spine Cervical (Routine)on 0 09-30-2023 Spine Cervical (Routine) Normal [facility] Spine Lumbar (Routine)on Spine Lumbar (Routine) Normal [facility] Spine Thoracic (Routine)on 0 09-30-2023 Spine Thoracic (Routine) Normal [facility] PT D/C Summary (1)on 024 PT D/C Summary (1) Normal [facility] Protein Electroph, Son 09-10 Albumin [Mass/Vol] 3.8 g/dL Normal 2.9-4.4 [facility] Comment on above: Performed By: #### L 500.4050, L503.0105, L100.0100, L501.6710, L3100.3450, L101.9900, L501.9520 ####[facility] [address] [place], [place], [id number] Albumin/Globulin [Mass ratio] 1.0 {ratio} Normal 0.7-1.7 [facility] Comment on above: Performed By: #### L 500.4050, L503.0105, L100.0100, L501.6710, L3100.3450, L101.9900, L501.9520 ####[facility] [address] [place], [address] ALPHA-1 GLOBUL 0.2 g/dL Normal 0.0-0.4 [facility] Comment on above: Performed By: #### L 500.4050, L503.0105, L100.0100, L501.6710, L3100.3450, L101.9900, L501.9520 ####[facility] [address] [place], [address] ALPHA-2 GLOBUL 0.8 g/dL Normal 0.4-1.0 [facility] Comment on above: Performed By: #### L 500.4050, L503.0105, L100.0100, L501.6710, L3100.3450, L101.9900, L501.9520 ####[facility] [address] [place], [address] BETA GLOBULIN 1.3 g/dL Normal 0.7-1.3 [facility] Comment on above: Performed By: #### L 500.4050, L503.0105, L100.0100, L501.6710, L3100.3450, L101.9900, L501.9520 ####[facility] [address] [place], [address] GAMMA GLOBULIN 1.6 g/dL Normal 0.4-1.8 [facility] Comment on above: Performed By: #### L 500.4050, L503.0105, L100.0100, L501.6710, L3100.3450, L101.9900, L501.9520 ####[facility] [address] [place], [address] Globulin (S) [Mass/Vol] 3.9 g/dL Normal 2.2-3.9 [facility] Comment on above: Performed By: #### L 500.4050, L503.0105, L100.0100, L501.6710, L3100.3450, L101.9900, L501.9520 ####[facility] [address] [place], [place], [id number] INTERPRETATION Comment Normal . [facility] Comment on above: Result Comment: Prot ein electrophoresis scan will follow via computer,mail, or assembler for puller over hand delivery. Performed By: #### L 500.4050, L503.0105, L100.0100, L501.6710, L3100.3450, L101.9900, L501.9520 ####[facility] [address] [place], [address] M-SPIKE Not Observed Normal Not Observed [facility] Comment on above: Performed By: #### L 500.4050, L503.0105, L100.0100, L501.6710, L3100.3450, L101.9900, L501.9520 ####[facility] [address] [place], [address] NOTE: Comment Normal . [facility] Comment on above: Result Comment: The SPE pattern appears unremarkable. Evidence ofmonoclonal protein is not apparent.Performed at: [address] [id number] Director: Olivier Jenkins PhD, Phone: [phone] Performed By: #### L 500.4050, L503.0105, L100.0100, L501.6710, L3100.3450, L101.9900, L501.9520 ####[facility] [address] [place], [address] Protein [Mass/Vol] 7.7 g/dL Normal 6.0-8.5 [facility] Comment on above: Performed By: #### L 500.4050, L503.0105, L100.0100, L501.6710, L3100.3450, L101.9900, L501.9520 ####[facility] [address] [place], [address] CBC W/Diff, Automatedon 08-29 Absolute Lymph 1.36 X10 3/uL Normal 0.83-4.51 [facility] Comment on above: Performed By: #### L 500.4050, L503.0105, L100.0100, L501.6710, L3100.3450, L101.9900, L501.9520 ####[facility] [address] [place], [address] Absolute Neut 4.4 X10 3/uL Normal 2.0-7.7 [facility] Comment on above: Performed By: #### L 500.4050, L503.0105, L100.0100, L501.6710, L3100.3450, L101.9900, L501.9520 ####[facility] [address] [place], [address] Basophils/100 WBC (Bld) 0.5 % Normal 0-1 [facility] Comment on above: Performed By: #### L 500.4050, L503.0105, L100.0100, L501.6710, L3100.3450, L101.9900, L501.9520 ####[facility] [address] [place], [address] Eosinophils/100 WBC (Bld) 2.6 % Normal 0-5 [facility] Comment on above: Performed By: #### L 500.4050, L503.0105, L100.0100, L501.6710, L3100.3450, L101.9900, L501.9520 ####[facility] [address] [place], [address] Erythrocyte distribution width (RBC) [Ratio] 13.2 % Normal 11.6-14.6 [facility] Comment on above: Performed By: #### L 500.4050, L503.0105, L100.0100, L501.6710, L3100.3450, L101.9900, L501.9520 ####[facility] [address] [place], [address] Hematocrit (Bld) [Volume fraction] 42.3 % Normal 37-47 [facility] Comment on above: Performed By: #### L 500.4050, L503.0105, L100.0100, L501.6710, L3100.3450, L101.9900, L501.9520 ####[facility] [address] [place], [address] Hemoglobin (Bld) [Mass/Vol] 13.7 g/dL Normal 12.0-15. 0 [facility] Comment on above: Performed By: #### L 500.4050, L503.0105, L100.0100, L501.6710, L3100.3450, L101.9900, L501.9520 ####[facility] [address] [place], [address] IG% 0.300 Normal 0.0-0.9 [facility] Comment on above: Result Comment: IG% - Immature Granulocytes (promyelocytes, myelocytes andmetamyelocytes) > 1% indicates that a LEFT SHIFT is Present. Performed By: #### L 500.4050, L503.0105, L100.0100, L501.6710, L3100.3450, L101.9900, L501.9520 ####[facility] [address] [place], [address] Lymphocytes/100 WBC (Bld) 21.1 % Normal 19-41 [facility] Comment on above: Performed By: #### L 500.4050, L503.0105, L100.0100, L501.6710, L3100.3450, L101.9900, L501.9520 ####[facility] [address] [place], [address] MCH (RBC) [Entitic mass] 32.5 pg High 27.0-32.0 [facility] Comment on above: Performed By: #### L 500.4050, L503.0105, L100.0100, L501.6710, L3100.3450, L101.9900, L501.9520 ####[facility] [address] [place], [address] MCHC (RBC) [Mass/Vol] 32.4 g/dL Normal 32-36 [facility] Comment on above: Performed By: #### L 500.4050, L503.0105, L100.0100, L501.6710, L3100.3450, L101.9900, L501.9520 ####[facility] [address] [place], [address] MCV (RBC) [Entitic vol] 100.2 fL High 81-99 [facility] Comment on above: Performed By: #### L 500.4050, L503.0105, L100.0100, L501.6710, L3100.3450, L101.9900, L501.9520 ####[facility] [address] [place], [address] Monocytes/100 WBC (Bld) 7.9 % Normal 0-10 [facility] Comment on above: Performed By: #### L 500.4050, L503.0105, L100.0100, L501.6710, L3100.3450, L101.9900, L501.9520 ####[facility] [address] [place], [address] Neutrophils/100 WBC (Bld) 67.6 % Normal 47-70 [facility] Comment on above: Performed By: #### L 500.4050, L503.0105, L100.0100, L501.6710, L3100.3450, L101.9900, L501.9520 ####[facility] [address] [place], [address] Nucleated RBC (Bld) [#/Vol] 0 10*3/uL Normal 0-5 [facility] Comment on above: Performed By: #### L 500.4050, L503.0105, L100.0100, L501.6710, L3100.3450, L101.9900, L501.9520 ####[facility] [address] [place], [address] Platelet mean volume (Bld) [Entitic vol] 9.2 fL Normal 6.2-12.0 [facility] Comment on above: Performed By: #### L 500.4050, L503.0105, L100.0100, L501.6710, L3100.3450, L101.9900, L501.9520 ####[facility] [address] [place], [address] Platelets (Bld) [#/Vol] 223 10*3/uL Normal 150-450 [facility] Comment on above: Performed By: #### L 500.4050, L503.0105, L100.0100, L501.6710, L3100.3450, L101.9900, L501.9520 ####[facility] [address] [place], [address] RBC (Bld) [#/Vol] 4.22 10*6/uL Normal 4.2-5.4 [facility] Comment on above: Performed By: #### L 500.4050, L503.0105, L100.0100, L501.6710, L3100.3450, L101.9900, L501.9520 ####[facility] [address] [place], [address] RDW SD 48.8 fl High 35.1-43.9 [facility] Comment on above: Performed By: #### L 500.4050, L503.0105, L100.0100, L501.6710, L3100.3450, L101.9900, L501.9520 ####[facility] [address] [place], [place], [id number] WBC (Bld) [#/Vol] 6.5 10*3/uL Normal 4.4-11.0 [facility] Comment on above: Performed By: #### L 500.4050, L503.0105, L100.0100, L501.6710, L3100.3450, L101.9900, L501.9520 ####[facility] [address] [place], [address] CRPon 09-09-2023 C-REACTIVE PROT < 2.90 Normal 0.0-3.0 [facility] Comment on above: Result Comment: C-Re active Protein (CRP) provides useful information for thediagnosis, therapy and monitoring of inflammatory processesand associated diseases. For the evaluation of Relative Riskfor Cardiovascular Disease, a High Sensitivity CRP (HSCRP)should be ordered. Performed By: #### L 500.4050, L503.0105, L100.0100, L501.6710, L3100.3450, L101.9900, L501.9520 ####[facility] [address] [place], [address] Comprehensive Metabolic Prof ilon 09-09-2023 Albumin [Mass/Vol] 3.7 g/dL Normal 3.2-5.0 [facility] Comment on above: Performed By: #### L 500.4050, L503.0105, L100.0100, L501.6710, L3100.3450, L101.9900, L501.9520 ####[facility] [address] [place], [address] Albumin/Globulin [Mass ratio] 0.8 {ratio} Low 0.9-2.4 [facility] Comment on above: Performed By: #### L 500.4050, L503.0105, L100.0100, L501.6710, L3100.3450, L101.9900, L501.9520 ####[facility] [address] [place], [address] ALK P 80 U/L Normal 45-117 [facility] Comment on above: Performed By: #### L 500.4050, L503.0105, L100.0100, L501.6710, L3100.3450, L101.9900, L501.9520 ####[facility] [address] [place], [address] ALT [Catalytic activity/Vol] 27 U/L Normal 13-56 [facility] Comment on above: Performed By: #### L 500.4050, L503.0105, L100.0100, L501.6710, L3100.3450, L101.9900, L501.9520 ####[facility] [address] [place], [address] AST [Catalytic activity/Vol] 29 U/L Normal 15-37 [facility] Comment on above: Performed By: #### L 500.4050, L503.0105, L100.0100, L501.6710, L3100.3450, L101.9900, L501.9520 ####[facility] [address] [place], [address] Bilirubin [Mass/Vol] 0.40 mg/dL Normal 0.20-1.00 [facility] Comment on above: Result Comment: For patients on eltrombopag therapy, use of Dimension [place] TBIL is not recommended. Performed By: #### L [id number], [id number], L100.0100, L501.6710, L3100.3450, L101.9900, [id number] ####[facility] [address] [place], [address] BUN/CRE 22.0 RATIO High 10-20 [facility] Comment on above: Performed By: #### L [id number], [id number], L100.0100, L501.6710, L3100.3450, L101.9900, [id number] ####[facility] [address] [place], [address] CA,Total 9.6 mg/dL Normal 8.5-10.1 [facility] Comment on above: Performed By: #### L 500.4050, [id number], L100.0100, L501.6710, L3100.3450, L101.9900, [id number] ####[facility] [address] [place], [address] Chloride [Moles/Vol] 104 mmol/L Normal 98-107 [facility] Comment on above: Performed By: #### L [id number], [id number], L100.0100, L501.6710, L3100.3450, L101.9900, [id number] ####[facility] [address] [place], [address] CO2 [Moles/Vol] 30.0 mmol/L Normal 21.0-32.0 [facility] Comment on above: Performed By: #### L 500.4050, [id number], L100.0100, L501.6710, L3100.3450, L101.9900, [id number] ####[facility] [address] [place], [address] Creatinine [Mass/Vol] 0.73 mg/dL Normal 0.55-1.02 [facility] Comment on above: Result Comment: The validity of the calculated GFR GFRAA in patients over70 years has not been determined. Clinical correlation isessential. Performed By: #### L 500.4050, [id number], L100.0100, L501.6710, L3100.3450, L101.9900, L501.9520 ####[facility] [address] [place], [address] EST GFR - AA 100 mL/min Normal >60 [facility] Comment on above: Result Comment: Afri can Gren[place] GFR Calc Performed By: #### L 500.4050, [id number], L100.0100, L501.6710, L3100.3450, L101.9900, [id number] ####[facility] [address] [place], [address] GAP 3 Low 5-15 [facility] Comment on above: Performed By: #### L 500.4050, [id number], L100.0100, L501.6710, L3100.3450, L101.9900, L501.9520 ####[facility] [address] [place], [place], [phone] GFR/1.73 sq M.predicted among non-blacks MDRD (S/P/Bld) [Vol rate/Area] 83 mL/min/{1.73_m2} Normal >60 [facility] Comment on above: Result Comment: Non- GFR Calc Performed By: #### L 500.4050, [id number], L100.0100, L501.6710, L3100.3450, L101.9900, L501.9520 ####[facility] [address] [place], [address] Globulin (S) [Mass/Vol] 4.7 g/dL High 2.2-4.2 [facility] Comment on above: Performed By: #### L 500.4050, [id number], L100.0100, L501.6710, L3100.3450, L101.9900, L501.9520 ####[facility] [address] [place], [address] Glucose [Mass/Vol] 93 mg/dL Normal 74-106 [facility] Comment on above: Performed By: #### L 500.4050, [id number], L100.0100, L501.6710, L3100.3450, L101.9900, L501.9520 ####[facility] [address] [place], [address] Potassium [Moles/Vol] 4.2 mmol/L Normal 3.5-5.1 [facility] Comment on above: Performed By: #### L 500.4050, [id number], L100.0100, L501.6710, L3100.3450, L101.9900, L501.9520 ####[facility] [address] [place], [address] Sodium [Moles/Vol] 137 mmol/L Normal 136-145 [facility] Comment on above: Performed By: #### L 500.4050, [id number], L100.0100, L501.6710, L3100.3450, L101.9900, L501.9520 ####[facility] [address] [place], [address] T PROT 8.4 g/dL High 6.4-8.2 [facility] Comment on above: Performed By: #### L 500.4050, [id number], L100.0100, L501.6710, L3100.3450, L101.9900, L501.9520 ####[facility] [address] [place], [address] Urea nitrogen [Mass/Vol] 16 mg/dL Normal 7-18 [facility] Comment on above: Performed By: #### L 500.4050, [id number], L100.0100, L501.6710, L3100.3450, L101.9900, L501.9520 ####[facility] [address] [place], [address] Erythrocyte Sed Rateon 09-08 SED RATE 12 mm/hr Normal 0-30 [facility] Comment on above: Performed By: #### L 500.4050, [id number], L100.0100, L501.6710, L3100.3450, L101.9900, L501.9520 ####[facility] [address] [place], [address] Thyroid Stim Hormone (TSH)on 09-09-2023 TSH 1.55 uIU/mL Normal 0.358-3.74 [facility] Comment on above: Performed By: #### L 500.4050, [id number], L100.0100, L501.6710, L3100.3450, L101.9900, L501.9520 ####[facility] [address] [place], [place], [id number] Vitamin B12on 09-09-2023 Cobalamin (Vitamin B12) [Mass/Vol] 1999 pg/mL High 211-911 [facility] Comment on above: Performed By: #### L 500.4050, [id number], L100.0100, L501.6710, L3100.3450, L101.9900, L501.9520 ####[facility] [address] [place], [place], [id number] Absolute lymphocyte countOrd ered By: Michael Snowden on 05-28-2023 Lymphocytes Auto (Unsp spec) [#/Vol] 1.31 10*3/uL 0.83-4.51 [facility] Automated lymphocyte count a s percentage of total leukocytesOrdered By: Michael Snowden on 05-28-2023 Lymphocytes/100 WBC Auto (Unsp spec) 20.5 % 19-41 [facility] Basophil percentageOrdered B y: Michael Snowden on 05-28-2023 Basophils/100 WBC (Bld) 0.5 % 0-1 [facility] Bilirubin [Mass/Vol] 0.80 mg/dL 0.20-1.00 [facility] Comment on above: For patients on eltr ombopag therapy, use of Dimension [place] TBIL is not recommended. Chloride [Moles/Vol] 106 mmol/L 98-107 [facility] Cholesterol [Mass/Vol] 168 mg/dL <200 [facility] Comment on above: <200 mg/dL Desirable 200-240 mg/dL Borderline >240 mg/dL High Risk Eosinophils/100 WBC (Bld) 2.4 % 0-5 [facility] Glucose [Mass/Vol] 87 mg/dL 74-106 [facility] Hemoglobin (Bld) [Mass/Vol] 12.7 g/dL 12.0-15. 0 [facility] Monocytes/100 WBC (Bld) 8.9 % 0-10 [facility] Neutrophils (Bld) [#/Vol] 4.3 10*3/uL 2.0-7.7 [facility] Neutrophils/100 WBC (Bld) 67.4 % 47-70 [facility] Potassium [Moles/Vol] 4.0 mmol/L 3.5-5.1 [facility] Protein [Mass/Vol] 7.6 g/dL 6.4-8.2 [facility] Sodium [Moles/Vol] 139 mmol/L 136-145 [facility] Triglyceride [Mass/Vol] 103 mg/dL <199 [facility] Comment on above: The drugs N-Acetylcy steine and Metamizole may falsely depress this assay.Serum Triglycerides Reference Interval Normal <150 mg/dL Borderline high 150 - 199 mg/dL High 200 - 499 mg/dL Very High > or = 500 mg/dL WBC (Bld) [#/Vol] 6.4 10*3/uL 4.4-11.0 [facility] Determination of erythrocyte mean corpuscular volume (MCV)Ordered By: Michael Snowden on 05-28-2023 MCV (RBC) [Entitic vol] 100.8 fL 81-99 [facility] Erythrocyte distribution wid th ratioOrdered By: [facility] on 05-28-2023 Erythrocyte distribution width (RBC) [Ratio] 13.2 % 11.6-14.6 [facility] Erythrocyte distribution wid th standard deviationOrdered By: [facility] on 05-28-2023 Erythrocyte distribution width (RBC) [Entitic vol] 48.9 fL 35.1-43.9 [facility] Hematocrit Auto (Bld) [Volum e fraction]Ordered By: [facility] on 05-28-2023 Hematocrit (Bld) [Volume fraction] 39.4 % 37-47 [facility] Immature granulocytes/100 WB C Auto (Bld)Ordered By: [facility] 05-28-2023 Immature granulocytes/100 WBC (Bld) 0.300 % 0.0-0.9 [facility] Comment on above: IG% - Immature Granu locytes (promyelocytes, myelocytes and metamyelocytes) > 1% indicates that a LEFT SHIFT is Present. Laboratory - Chemistry and C hemistry - challengeOrdered By: [facility] 05-28-2023 Albumin/Globulin [Mass ratio] 0.8 {ratio} 0.9-2.4 [facility] ALP [Catalytic activity/Vol] 78 U/L 45-117 [facility] ALT [Catalytic activity/Vol] 29 U/L 13-56 [facility] Cholesterol in HDL [Mass/Vol] 70 mg/dL >40 [facility] Comment on above: The drugs N-Acetylcy steine and Metamizole may falsely depress this assay. Reference Range HDL <40 mg/dL Low HDL Cholesterol HDL >or= 60 mg/dL High HDL Cholesterol Cholesterol in LDL [Mass/Vol] 77 mg/dL 0-130 [facility] CO2 [Moles/Vol] 28.0 mmol/L 21.0-32.0 [facility] Globulin (S) [Mass/Vol] 4.2 g/dL 2.2-4.2 [facility] Urea nitrogen/Creatinine [Mass ratio] 22.7 mg/mg 10-20 [facility] Laboratory - Hematology and Cell countsOrdered By: [facility] 05-28-2023 MCH (RBC) [Entitic mass] 32.5 pg 27.0-32.0 [facility] MCHC (RBC) [Mass/Vol] 32.2 g/dL 32-36 [facility] Nucleated RBC/100 WBC (Bld) [Ratio] 0 % 0-5 [facility] Platelet mean volume (Bld) [Entitic vol] 9.8 fL 6.2-12.0 [facility] Platelets (Bld) [#/Vol] 219 10*3/uL 150-450 [facility] No Panel InformationOrdered By: Michael Snowden on 05-28-2023 Estimated GFR (MDRD) Amer 97 mL/min >60 [facility] Comment on above: GFR Calc Estimated GFR (MDRD) Non-Af Amer 80 mL/min >60 [facility] Comment on above: Non- GFR Calc Vitamin D 25-Hydroxy 81.9 ng/mL [facility] Comment on above: Vitamin D 25(OH) Sta tus Range Deficiency <20 ng/mL (50nmol/L) Insufficiency 20 - 30 ng/mL (50 - 75 nmol/L) Sufficiency 30 - 100 ng/mL (75 - 250 nmol/L) Toxicity >100 ng/mL (>250 nmol/L) VLDL Cholesterol 21 mg/dL 5-40 [facility] RBC Auto (Bld) [#/Vol]Ordere d By: Michael Snowden on 05-28-2023 RBC (Bld) [#/Vol] 3.91 10*6/uL 4.2-5.4 [facility] Serum or plasma calcium gianluca urement (mass/volume)Ordered By: Michael Snowden on 05-28-2023 Calcium [Mass/Vol] 9.0 mg/dL 8.5-10.1 [facility] Serum or plasma creatinine m easurement (mass/volume)Ordered By: Michael Snowden on 05-28-2023 Creatinine [Mass/Vol] 0.75 mg/dL 0.55-1.02 [facility] Comment on above: The validity of the calculated GFR & GFRAA in patients over 70 years has not been determined. Clinical correlation is essential. Serum or plasma thyroid stim ulating hormone (TSH) measurement (units/volume)Ordered By: Michael Snowden on 05-28-2023 TSH Qn 1.09 uIU/mL 0.358-3.74 [facility] Serum or plasma urea nitroge n measurement (mass/volume)Ordered By: Michael Snowden on 05-28-2023 Urea nitrogen [Mass/Vol] 17 mg/dL 7-18 [facility] Thin prep Papanicolaou smear with manual screeningOrdered By: Michael Snowden on 05-28-2023 Thin prep Papanicolaou smear with manual screening 3.4 g/dL 3.2-5.0 [facility] Thin prep Papanicolaou smear with manual screening 23 U/L 15-37 [facility] Thin prep Papanicolaou smear with manual screening 5 5-15 [facility] Absolute lymphocyte countOrd ered By: Gaetano Cleary on 05-09-2023 Lymphocytes Auto (Unsp spec) [#/Vol] 1.22 10*3/uL 0.83-4.51 [facility] Automated lymphocyte count a s percentage of total leukocytesOrdered By: Gaetano Cleary on 05-09-2023 Lymphocytes/100 WBC Auto (Unsp spec) 20.0 % 19-41 [facility] Basophil percentageOrdered B y: Gaetano Cleary on 05-09-2023 Basophils/100 WBC (Bld) 0.7 % 0-1 [facility] Eosinophils/100 WBC (Bld) 2.3 % 0-5 [facility] Hemoglobin (Bld) [Mass/Vol] 12.3 g/dL 12.0-15. 0 [facility] Monocytes/100 WBC (Bld) 8.4 % 0-10 [facility] Neutrophils (Bld) [#/Vol] 4.2 10*3/uL 2.0-7.7 [facility] Neutrophils/100 WBC (Bld) 68.1 % 47-70 [facility] WBC (Bld) [#/Vol] 6.1 10*3/uL 4.4-11.0 [facility] Determination of erythrocyte mean corpuscular volume (MCV)Ordered By: Gaetano Cleary on 05-09-2023 MCV (RBC) [Entitic vol] 100.8 fL 81-99 [facility] Erythrocyte distribution wid th ratioOrdered By: Gaetano Cleary on 05-09-2023 Erythrocyte distribution width (RBC) [Ratio] 13.2 % 11.6-14.6 [facility] Erythrocyte distribution wid th standard deviationOrdered By: Gaetano Cleary on 05-09-2023 Erythrocyte distribution width (RBC) [Entitic vol] 49.1 fL 35.1-43.9 [facility] Erythrocyte sedimentation ra teOrdered By: Gaetano Cleary on 05-09-2023 ESR (Bld) [Velocity] 18 mm/h 0-30 [facility] Hematocrit Auto (Bld) [Volum e fraction]Ordered By: Gaetano Cleary on 05-09-2023 Hematocrit (Bld) [Volume fraction] 39.9 % 37-47 [facility] Immature granulocytes/100 WB C Auto (Bld)Ordered By: Gaetano Cleary on 05-09-2023 Immature granulocytes/100 WBC (Bld) 0.500 % 0.0-0.9 [facility] Comment on above: IG% - Immature Granu locytes (promyelocytes, myelocytes and metamyelocytes) > 1% indicates that a LEFT SHIFT is Present. Laboratory - Hematology and Cell countsOrdered By: Gaetano Cleary on 05-09-2023 MCH (RBC) [Entitic mass] 31.1 pg 27.0-32.0 [facility] MCHC (RBC) [Mass/Vol] 30.8 g/dL 32-36 [facility] Nucleated RBC/100 WBC (Bld) [Ratio] 0 % 0-5 [facility] Platelet mean volume (Bld) [Entitic vol] 9.8 fL 6.2-12.0 [facility] Platelets (Bld) [#/Vol] 225 10*3/uL 150-450 [facility] No Panel InformationOrdered By: Gaetano Cleary on 05-09-2023 C-Reactive Protein Extended Range < 2.90 mg/L 0.0-3.0 [facility] Comment on above: C-Reactive Protein ( CRP) provides useful information for thediagnosis, therapy and monitoring of inflammatory processesand associated diseases. For the evaluation of Relative Riskfor Cardiovascular Disease, a High Sensitivity CRP (HSCRP)should be ordered. RBC Auto (Bld) [#/Vol]Ordere d By: Gaetano Cleary on 05-09-2023 RBC (Bld) [#/Vol] 3.96 10*6/uL 4.2-5.4 [facility] Absolute lymphocyte countOrd ered By: Michael Snowden on 11-27-2022 Lymphocytes Auto (Unsp spec) [#/Vol] 1.24 10*3/uL 0.83-4.51 [facility] Basophil percentageOrdered B y: Michael Snowden on 11-27-2022 Basophils/100 WBC (Bld) 0.8 % 0-1 [facility] Bilirubin [Mass/Vol] 0.30 mg/dL 0.20-1.00 [facility] Comment on above: For patients on eltr ombopag therapy, use of Dimension [place] TBIL is not recommended. Chloride [Moles/Vol] 110 mmol/L 98-107 [facility] Cholesterol [Mass/Vol] 169 mg/dL <200 [facility] Comment on above: <200 mg/dL Desirable 200-240 mg/dL Borderline >240 mg/dL High Risk Eosinophils/100 WBC (Bld) 2.5 % 0-5 [facility] Glucose [Mass/Vol] 93 mg/dL 74-106 [facility] Neutrophils (Bld) [#/Vol] 3.3 10*3/uL 2.0-7.7 [facility] Neutrophils/100 WBC (Bld) 63.1 % 47-70 [facility] Potassium [Moles/Vol] 4.1 mmol/L 3.5-5.1 [facility] Protein [Mass/Vol] 7.4 g/dL 6.4-8.2 [facility] Sodium [Moles/Vol] 143 mmol/L 136-145 [facility] Triglyceride [Mass/Vol] 57 mg/dL <199 [facility] Comment on above: The drugs N-Acetylcy steine and Metamizole may falsely depress this assay.Serum Triglycerides Reference Interval Normal <150 mg/dL Borderline high 150 - 199 mg/dL High 200 - 499 mg/dL Very High > or = 500 mg/dL WBC (Bld) [#/Vol] 5.2 10*3/uL 4.4-11.0 [facility] Blood erythrocytes count (nu mber/volume)Ordered By: Michael Snowden on 11-27-2022 RBC (Bld) [#/Vol] 3.78 10*6/uL 4.2-5.4 [facility] Blood hemoglobin measurement (mass/volume)Ordered By: Michael Snowden on 11-27-2022 Hemoglobin (Bld) [Mass/Vol] 11.9 g/dL 12.0-15. 0 [facility] Blood lymphocytes/100 leukoc ytesOrdered By: Michael Snowden on 11-27-2022 Lymphocytes/100 WBC (Bld) 23.8 % 19-41 [facility] Blood monocytes/100 leukocyt esOrdered By: Michael Snowden on 11-27-2022 Monocytes/100 WBC (Bld) 9.4 % 0-10 [facility] Blood platelet mean volumeOr dered By: Michael Sp on 11-27-2022 Platelet mean volume (Bld) [Entitic vol] 10.0 fL 6.2-12.0 [facility] Determination of erythrocyte mean corpuscular volume (MCV)Ordered By: Michael Snowden on 11-27-2022 MCV (RBC) [Entitic vol] 100.0 fL 81-99 [facility] Hematocrit Auto (Bld) [Volum e fraction]Ordered By: Michael Sp on 11-27-2022 Hematocrit (Bld) [Volume fraction] 37.8 % 37-47 [facility] Laboratory - Chemistry and C hemistry - challengeOrdered By: Michael Sp on 11-27-2022 ALP [Catalytic activity/Vol] 68 U/L 45-117 [facility] ALT [Catalytic activity/Vol] 22 U/L 13-56 [facility] CO2 [Moles/Vol] 28.0 mmol/L 21.0-32.0 [facility] Globulin (S) [Mass/Vol] 4.1 g/dL 2.2-4.2 [facility] Urea nitrogen/Creatinine [Mass ratio] 21.3 mg/mg 10-20 [facility] Laboratory - Hematology and Cell countsOrdered By: Michael Snowden on 11-27-2022 Erythrocyte distribution width (RBC) [Entitic vol] 47.8 fL 35.1-43.9 [facility] Erythrocyte distribution width (RBC) [Ratio] 13.1 % 11.6-14.6 [facility] Immature granulocytes/100 WBC (Bld) 0.400 % 0.0-0.9 [facility] Comment on above: IG% - Immature Granu locytes (promyelocytes, myelocytes and metamyelocytes) > 1% indicates that a LEFT SHIFT is Present. MCH (RBC) [Entitic mass] 31.5 pg 27.0-32.0 [facility] Nucleated RBC/100 WBC (Bld) [Ratio] 0 % 0-5 [facility] MCHC Auto (RBC) [Mass/Vol]Or dered By: Michael Snowden on 11-27-2022 MCHC (RBC) [Mass/Vol] 31.5 g/dL 32-36 [facility] No Panel InformationOrdered By: Michael Snowden on 11-27-2022 Estimated GFR (MDRD) Amer 112 mL/min >60 [facility] Comment on above: GFR Calc Estimated GFR (MDRD) Non-Af Amer 93 mL/min >60 [facility] Comment on above: Non- GFR Calc Thyroid Stimulating Hormone (TSH) 0.84 uIU/mL 0.358-3.74 [facility] Vitamin D 25-Hydroxy 87.7 ng/mL [facility] Comment on above: Vitamin D 25(OH) Sta tus Range Deficiency <20 ng/mL (50nmol/L) Insufficiency 20 - 30 ng/mL (50 - 75 nmol/L) Sufficiency 30 - 100 ng/mL (75 - 250 nmol/L) Toxicity >100 ng/mL (>250 nmol/L) Platelets bldOrdered By: Michael Snowden on 11-27-2022 Platelets (Bld) [#/Vol] 214 10*3/uL 150-450 [facility] Serum or plasma albumin gianluca urement (mass/volume)Ordered By: Michael Snowden on 11-27-2022 Albumin [Mass/Vol] 3.3 g/dL 3.2-5.0 [facility] Serum or plasma albumin/glob ulin mass ratioOrdered By: Michael Snowden on 11-27-2022 Albumin/Globulin [Mass ratio] 0.8 {ratio} 0.9-2.4 [facility] Serum or plasma calcium gianluca urement (mass/volume)Ordered By: Michael Snowden on 11-27-2022 Calcium [Mass/Vol] 9.2 mg/dL 8.5-10.1 [facility] Serum or plasma cholesterol in HDL measurement (mass/volume)Ordered By: Michael Snowden on 11-27-2022 Cholesterol in HDL [Mass/Vol] 66 mg/dL >40 [facility] Comment on above: The drugs N-Acetylcy steine and Metamizole may falsely depress this assay. Reference Range HDL <40 mg/dL Low HDL Cholesterol HDL >or= 60 mg/dL High HDL Cholesterol Serum or plasma cholesterol in VLDL measurement (mass/volume)Ordered By: Michael Snowden on 11-27-2022 Cholesterol in VLDL [Mass/Vol] 11 mg/dL 5-40 [facility] Serum or plasma creatinine m easurement (mass/volume)Ordered By: Michael Snowden on 11-27-2022 Creatinine [Mass/Vol] 0.66 mg/dL 0.55-1.02 [facility] Comment on above: The validity of the calculated GFR & GFRAA in patients over 70 years has not been determined. Clinical correlation is essential. Serum or plasma low density lipoprotein (LDL) cholesterol measurement (mass/volume)Ordered By: Michael Snowden on 11-27-2022 Cholesterol in LDL [Mass/Vol] 92 mg/dL 0-130 [facility] Serum or plasma urea nitroge n measurement (mass/volume)Ordered By: Michael Snowden on 11-27-2022 Urea nitrogen [Mass/Vol] 14 mg/dL 7-18 [facility] Thin prep Papanicolaou smear with manual screeningOrdered By: Michael Snowden on 11-27-2022 Thin prep Papanicolaou smear with manual screening 21 U/L 15-37 [facility] Thin prep Papanicolaou smear with manual screening 5 5-15 [facility] No Panel InformationOrdered By: Sae Brandt on 08-05-2022 Stool Calprotectin 32 ug/g 0-120 [facility] Comment on above: Concentration Interp retation Follow-Up<16 - 50 ug/g Normal None>50 -120 ug/g Borderline Re-evaluate in 4-6 weeks >120 ug/g Abnormal Repeat as clinically indicatedPerformed at: [facility] [address] [id number] Director: Alaina Alex MD, Phone: [phone] Stool Pancreatic Elastase 202 >200 [facility] Comment on above: Result Units: ug [address] st./g Severe Pancreatic Insufficiency: <100 Moderate Pancreatic Insufficiency: 100 - 200 Normal: >200Performed at: [address] [id number] Director: Alaina Alex MD, Phone: [phone] Stool lactoferrin detection by immunoassayOrdered By: Sae Brandt on 08-05-2022 Lactoferrin IA Ql (Stl) [facility] Lactoferrin IA Ql (Stl) [facility] Absolute lymphocyte countOrd ered By: Sae Brandt on 06-07-2022 Lymphocytes Auto (Unsp spec) [#/Vol] 1.34 10*3/uL 0.83-4.51 [facility] Atypical perinuclear antineu trophil cytoplasmic antibodies measurementOrdered By: Sae Brandt on 06-07-2022 Neutrophil cytoplasmic Ab.perinuclear.atypical IF (S) [Titer] <1:20 titer Neg:<1:20 [facility] Comment on above: The atypical pANCA p attern has been observed in asignificant percentage of patients with ulcerative colitis,primary sclerosing cholangitis and autoimmune hepatitis.Performed at: [facility] [employer] [id number] Director: Olivier Jenkins PhD, Phone: [phone] at: [address] [id number] Director: Alaina Alex MD, Phone: [phone] Basophil percentageOrdered B y: Sae Brandt on 06-07-2022 Basophil percentage < 0.2 AI 0.0-0.9 [facility] Basophils/100 WBC (Bld) 0.9 % 0-1 [facility] Bilirubin [Mass/Vol] 0.40 mg/dL 0.20-1.00 [facility] Comment on above: For patients on eltr ombopag therapy, use of Dimension [place] TBIL is not recommended. Chloride [Moles/Vol] 103 mmol/L 98-107 [facility] Eosinophils/100 WBC (Bld) 2.3 % 0-5 [facility] Glucose [Mass/Vol] 85 mg/dL 74-106 [facility] LDH [Catalytic activity/Vol] 226 U/L 84-246 [facility] Neutrophils (Bld) [#/Vol] 4.5 10*3/uL 2.0-7.7 [facility] Neutrophils/100 WBC (Bld) 67.7 % 47-70 [facility] Potassium [Moles/Vol] 3.6 mmol/L 3.5-5.1 [facility] Protein [Mass/Vol] 7.6 g/dL 6.4-8.2 [facility] Sodium [Moles/Vol] 140 mmol/L 136-145 [facility] WBC (Bld) [#/Vol] 6.6 10*3/uL 4.4-11.0 [facility] Blood erythrocytes count (nu mber/volume)Ordered By: Sae Brandt on 06-07-2022 RBC (Bld) [#/Vol] 4.03 10*6/uL 4.2-5.4 [facility] Blood hemoglobin measurement (mass/volume)Ordered By: Sae Brandt on 06-07-2022 Hemoglobin (Bld) [Mass/Vol] 13.0 g/dL 12.0-15. 0 [facility] Blood lymphocytes/100 leukoc ytesOrdered By: Sae Brandt on 06-07-2022 Lymphocytes/100 WBC (Bld) 20.2 % 19-41 [facility] Blood monocytes/100 leukocyt esOrdered By: Sae Brandt on 06-07-2022 Monocytes/100 WBC (Bld) 8.6 % 0-10 [facility] Blood platelet mean volumeOr dered By: Sae Brandt on 06-07-2022 Platelet mean volume (Bld) [Entitic vol] 9.5 fL 6.2-12.0 [facility] Determination of erythrocyte mean corpuscular volume (MCV)Ordered By: Sae Brandt on 06-07-2022 MCV (RBC) [Entitic vol] 99.5 fL 81-99 [facility] Erythrocyte sedimentation ra teOrdered By: Sae Brandt on 06-07-2022 ESR (Bld) [Velocity] 30 mm/h 0-[address] [facility] Hematocrit Auto (Bld) [Volum e fraction]Ordered By: Sae Brandt on 06-07-2022 Hematocrit (Bld) [Volume fraction] 40.1 % 37-47 [facility] Interpretation of serum or p lasma protein pattern by immunofixation (narrative resultOrdered By: Sae Brandt on 06-07-2022 Protein Fractions Immunofixation Micheal [Interp] See comment [facility] Comment on above: NOT OBSERVED Laboratory - Chemistry and C hemistry - challengeOrdered By: Sae Brandt on 06-07-2022 ALP [Catalytic activity/Vol] 72 U/L 45-117 [facility] ALT [Catalytic activity/Vol] 25 U/L 13-56 [facility] CO2 [Moles/Vol] 29.0 mmol/L 21.0-32.0 [facility] Urea nitrogen/Creatinine [Mass ratio] 16.9 mg/mg 10-20 [facility] Laboratory - Hematology and Cell countsOrdered By: Sae Brandt on 06-07-2022 Erythrocyte distribution width (RBC) [Entitic vol] 48.0 fL 35.1-43.9 [facility] Erythrocyte distribution width (RBC) [Ratio] 13.1 % 11.6-14.6 [facility] Immature granulocytes/100 WBC (Bld) 0.300 % 0.0-0.9 [facility] Comment on above: IG% - Immature Granu locytes (promyelocytes, myelocytes and metamyelocytes) > 1% indicates that a LEFT SHIFT is Present. MCH (RBC) [Entitic mass] 32.3 pg 27.0-32.0 [facility] Nucleated RBC/100 WBC (Bld) [Ratio] 0 % 0-5 [facility] MCHC Auto (RBC) [Mass/Vol]Or dered By: Sae Brandt on 06-07-2022 MCHC (RBC) [Mass/Vol] 32.4 g/dL 32-36 [facility] No Panel InformationOrdered By: Sae Brandt on 06-07-2022 Addendum Document Comment . [facility] Comment on above: Protein electrophore sis scan will follow via computer,mail, or assembler for puller over hand delivery. Centromere B Antibody 0.3 AI 0.0-0.9 [facility] Endomysial IgA Antib[facility] Est[facility] GFR (MDRD) Amer 94 mL/min >60 [facility] Comment on above: GFR Calc Estimated GFR (MDRD) Non-Af Amer 78 mL/min >60 [facility] Comment on above: Non- GFR Calc Immunoglobulin E 25 IU/mL 6-495 [facility]iscellaneous Test [facility] Comment on above: TEST RESULT LIMITSIB D Expanded Panel Pat 17 units 0-50 Negative <45 Equivocal 45 - 50 Positive >50 ACCA 18 units 0-90 Negative <80 Equivocal 80 - 90 Positive >90 ALCA 24 units 0-60 Negative <55 Equivocal 55 - 60 Positive >60 AMCA 46 units 0-100 Negative < 90 Equivocal 90 - 100 Positive >100 This test was developed and its performance characteristics determined by [facility]. It has not been cleared or approved by the Food and Drug Administration. The FDA has determined that such clearance or approval is not necessary.Atypical pANCA Negative Negative Comments Pattern is not suggestive of Inflammatory Bowel Disease TESTING PERFORMED AT [facility]. ORIGINAL REPORT ON FILE IN LAB CONTAINS ADDITIONAL TEST SITE INFORMATION. 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 Antibody <0.2 AI 0.0-0.9 [facility] Platelets bldOrdered By: Raúl Brandt on 06-07-2022 Platelets (Bld) [#/Vol] 214 10*3/uL 150-450 [facility] Serum DNA double strand anti body assay (units/volume)Ordered By: Sae Brandt on 06-07-2022 DNA double strand Ab Qn (S) 5 [IU]/mL 0-9 [facility] Comment on above: Negative <5 Equivoca l 5 - 9 Positive >9 Serum Jaci-1 antibody assay (u nits/volume)Ordered By: Sae Brandt on 06-07-2022 Jaci-1 extractable nuclear Ab Qn (S) <0.2 AI 0.0-0.9 [facility] Serum Scl-70 extractable nuc lear antibody assay (units/volume)Ordered By: Sae Brandt on 06-07-2022 SCL-70 extractable nuclear Ab Qn (S) <0.2 AI 0.0-0.9 [facility] Serum Espinosa extractable nucl ear antibody detectionOrdered By: Sae Brandt on 06-07-2022 Espinosa extractable nuclear Ab Ql (S) <0.2 AI 0.0-0.9 [facility] Serum [id number] measu rement by electrophoresisOrdered By: Sae Brandt on 06-07-2022 Alpha 1 globulin Elph [Mass/Vol] 0.3 g/dL 0.0-0.4 [facility] Alpha 1 globulin Elph [Mass/Vol] 0.7 g/dL 0.4-1.0 [facility] Serum classic neutrophil cyt oplasmic antibody assay (units/volume)Ordered By: Sae Brandt on 06-07-2022 Neutrophil cytoplasmic Ab.classic Qn (S) <1:20 titer Neg:<1:20 [facility] Serum globulin measurement ( mass/volume)Ordered By: Sae Brandt on 06-07-2022 Globulin (S) [Mass/Vol] 3.6 g/dL 2.2-3.9 [facility] Serum or plasma C reactive p rotein measurement (mass/volume)Ordered By: Sae Brandt on 06-07-2022 CRP [Mass/Vol] mg/L 0.0-3.0 [facility] Comment on above: C-Reactive Protein ( CRP) provides useful information for thediagnosis, therapy and monitoring of inflammatory processesand associated diseases. For the evaluation of Relative Riskfor Cardiovascular Disease, a High Sensitivity CRP (HSCRP)should be ordered. Serum or plasma IgA measurem ent (mass/volume)Ordered By: Sae Brandt on 06-07-2022 IgA [Mass/Vol] 338 mg/dL 64-422 [facility] Serum or plasma IgG measurem ent (mass/volume)Ordered By: Sae Brandt on 06-07-2022 IgG [Mass/Vol] 1428 mg/dL [phone] [facility] Serum or plasma IgM measurem ent (mass/volume)Ordered By: Sae Brandt on 06-07-2022 IgM [Mass/Vol] 92 mg/dL 26-217 [facility] Serum or plasma albumin gianluca urement (mass/volume)Ordered By: Sae Brandt on 06-07-2022 Albumin [Mass/Vol] 3.6 g/dL 2.9-4.4 [facility] Serum or plasma albumin/glob ulin mass ratioOrdered By: Sae Brandt on 06-07-2022 Albumin/Globulin [Mass ratio] 0.9 {ratio} 0.9-2.4 [facility] Serum or plasma beta globuli n measurement by electrophoresis (mass/volume)Ordered By: Sae Brandt on 06-07-2022 Beta globulin Elph [Mass/Vol] 1.0 g/dL 0.7-1.3 [facility] Serum or plasma calcium gianluca urement (mass/volume)Ordered By: Sae Brandt on 06-07-2022 Calcium [Mass/Vol] 9.5 mg/dL 8.5-10.1 [facility] Serum or plasma creatinine m easurement (mass/volume)Ordered By: Sae Brandt on 06-07-2022 Creatinine [Mass/Vol] 0.77 mg/dL 0.55-1.02 [facility] Comment on above: The validity of the calculated GFR & GFRAA in patients over 70 years has not been determined. Clinical correlation is essential. Serum or plasma gamma globul in measurement by electrophoresis (mass/volume)Ordered By: Sae Brandt on 06-07-2022 Gamma globulin Elph [Mass/Vol] 1.6 g/dL 0.4-1.8 [facility] Serum or plasma immunoelectr ophoresis interpretation (nominal result)Ordered By: Sae Brandt on 06-07-2022 Interpretation IEP [Interp] Comment . [facility] Comment on above: No monoclonality det ected. Serum or plasma urea nitroge n measurement (mass/volume)Ordered By: Sae Brandt on 06-07-2022 Urea nitrogen [Mass/Vol] 13 mg/dL 7-18 [facility] Serum perinuclear neutrophil cytoplasmic antibody titer by immunofluorescenceOrdered By: Sae Brandt on 06-07-2022 Neutrophil cytoplasmic Ab.perinuclear IF (S) [Titer] <1:20 titer Neg:<1:20 [facility] Comment on above: The presence of posi tive fluorescence exhibiting P-ANCA orC-ANCA patterns alone is not specific for the diagnosis ofWegener's Granulomatosis (WG) or microscopic polyangiitis.Decisions about treatment should not be based solely onANCA IFA results. The [employer] ANCA [employer] Consensusrecommends follow up testing of positive sera with both MO-3 and MPO-ANCA enzyme immunoassays. As many as 5% serumsamples are positive only by EIA. Ref. AM J Clin [id number];111:507-513. Serum tissue transglutaminas e IgA antibody assay (units/volume)Ordered By: Sae Brandt on 06-07-2022 tTG IgA Qn (S) <2 U/mL 0-3 [facility] Comment on above: Negative 0 - 3 Weak Positive 4 - 10 Positive >10 Tissue Transglutaminase (tTG) has been identified as the endomysial antigen. Studies have demonstr- ated that endomysial IgA antibodies have over 99% specificity for gluten sensitive enteropathy. Thin prep Papanicolaou smear with manual screeningOrdered By: Sae Brandt on 06-07-2022 Thin prep Papanicolaou smear with manual screening 23 U/L 15-37 [facility] Thin prep Papanicolaou smear with manual screening 8 5-15 [facility] Thin prep Papanicolaou smear with manual screening 1.1 0.7-1.7 [facility] Total protein bloodOrdered B y: Sae Brandt on 06-07-2022 Protein [Mass/Vol] 7.2 g/dL 6.0-8.5 [facility] Absolute lymphocyte countOrd ered By: Dr. Snowden on 03-26-2022 Lymphocytes Auto (Unsp spec) [#/Vol] 1.21 10*3/uL 0.83-4.51 [facility] Basophil percentageOrdered B y: Dr. Snowden on 03-26-2022 Basophils/100 WBC (Bld) 0.5 % 0-1 [facility] Bilirubin [Mass/Vol] 0.40 mg/dL 0.20-1.00 [facility] Comment on above: For patients on eltr ombopag therapy, use of Dim[place] TBIL is not recommended. Chloride [Moles/Vol] 104 mmol/L 98-107 [facility] Cholesterol [Mass/Vol] 176 mg/dL <200 [facility] Comment on above: <200 mg/dL Desirable 200-240 mg/dL Borderline >240 mg/dL High Risk Eosinophils/100 WBC (Bld) 1.9 % 0-5 [facility] Glucose [Mass/Vol] 88 mg/dL 74-106 [facility] Neutrophils (Bld) [#/Vol] 4.0 10*3/uL 2.0-7.7 [facility] Neutrophils/100 WBC (Bld) 67.6 % 47-70 [facility] Potassium [Moles/Vol] 4.1 mmol/L 3.5-5.1 [facility] Protein [Mass/Vol] 7.0 g/dL 6.4-8.2 [facility] Sodium [Moles/Vol] 140 mmol/L 136-145 [facility] Triglyceride [Mass/Vol] 113 mg/dL <199 [facility] Comment on above: The drugs N-Acetylcy steine and Metamizole may falsely depress this assay.Serum Triglycerides Reference Interval Normal <150 mg/dL Borderline high 150 - 199 mg/dL High 200 - 499 mg/dL Very High > or = 500 mg/dL WBC (Bld) [#/Vol] 5.9 10*3/uL 4.4-11.0 [facility] Blood erythrocytes count (nu mber/volume)Ordered By: Dr. Snowden on 03-26-2022 RBC (Bld) [#/Vol] 4.01 10*6/uL 4.2-5.4 [facility] Blood hemoglobin measurement (mass/volume)Ordered By: Dr. Snowden on 03-26-2022 Hemoglobin (Bld) [Mass/Vol] 12.6 g/dL 12.0-15. 0 [facility] Blood lymphocytes/100 leukoc ytesOrdered By: Dr. Snowden on 03-26-2022 Lymphocytes/100 WBC (Bld) 20.4 % 19-41 [facility] Blood monocytes/100 leukocyt esOrdered By: Dr. Snowden on 03-26-2022 Monocytes/100 WBC (Bld) 9.3 % 0-10 [facility] Blood platelet mean volumeOr dered By: Dr. Snowden on 03-26-2022 Platelet mean volume (Bld) [Entitic vol] 10.1 fL 6.2-12.0 [facility] Determination of erythrocyte mean corpuscular volume (MCV)Ordered By: Dr. Snowden on 03-26-2022 MCV (RBC) [Entitic vol] 99.0 fL 81-99 [facility] Hematocrit Auto (Bld) [Volum e fraction]Ordered By: Dr. Snowden on 03-26-2022 Hematocrit (Bld) [Volume fraction] 39.7 % 37-47 [facility] Laboratory - Chemistry and C hemistry - challengeOrdered By: Dr. Snowden on 03-26-2022 ALP [Catalytic activity/Vol] 64 U/L 45-117 [facility] ALT [Catalytic activity/Vol] 23 U/L 13-56 [facility] CO2 [Moles/Vol] 28.0 mmol/L 21.0-32.0 [facility] Globulin (S) [Mass/Vol] 3.6 g/dL 2.2-4.2 [facility] Urea nitrogen/Creatinine [Mass ratio] 18.9 mg/mg 10-20 [facility] Laboratory - Hematology and Cell countsOrdered By: Dr. Snowden on 03-26-2022 Erythrocyte distribution width (RBC) [Entitic vol] 47.1 fL 35.1-43.9 [facility] Erythrocyte distribution width (RBC) [Ratio] 13.1 % 11.6-14.6 [facility] Immature granulocytes/100 WBC (Bld) 0.300 % 0.0-0.9 [facility] Comment on above: IG% - Immature Granu locytes (promyelocytes, myelocytes and metamyelocytes) > 1% indicates that a LEFT SHIFT is Present. MCH (RBC) [Entitic mass] 31.4 pg 27.0-32.0 [facility] Nucleated RBC/100 WBC (Bld) [Ratio] 0 % 0-5 [facility] [Mass/Vol]Or dered By: Dr. Snowden on 03-26-2022 MCHC (RBC) [Mass/Vol] 31.7 g/dL 32-36 [facility] No Panel InformationOrdered By: Dr. Snowden on 03-26-2022 Estimated GFR (MDRD) Amer 98 mL/min >60 [facility] Comment on above: GFR Calc Estimated GFR (MDRD) Non-Af Amer 81 mL/min >60 [facility] Comment on above: Non- GFR Calc Thyroid Stimulating Hormone (TSH) 0.92 uIU/mL 0.358-3.74 [facility] Vitamin D 25-Hydroxy 78.9 ng/mL [facility] Comment on above: Vitamin D 25(OH) Sta tus Range Deficiency <20 ng/mL (50nmol/L) Insufficiency 20 - 30 ng/mL (50 - 75 nmol/L) Sufficiency 30 - 100 ng/mL (75 - 250 nmol/L) Toxicity >100 ng/mL (>250 nmol/L) Platelets bldOrdered By: Dr. Snowden on 03-26-2022 Platelets (Bld) [#/Vol] 221 10*3/uL 150-450 [facility] Serum or plasma albumin gianluca urement (mass/volume)Ordered By: Dr. Snowden on 03-26-2022 Albumin [Mass/Vol] 3.4 g/dL 3.2-5.0 [facility] Serum or plasma albumin/glob ulin mass ratioOrdered By: Dr. Snowden on 03-26-2022 Albumin/Globulin [Mass ratio] 0.9 {ratio} 0.9-2.4 [facility] Serum or plasma calcium gianluca urement (mass/volume)Ordered By: Dr. Snowden on 03-26-2022 Calcium [Mass/Vol] 8.8 mg/dL 8.5-10.1 [facility] Serum or plasma cholesterol in HDL measurement (mass/volume)Ordered By: Dr. Snowden on 03-26-2022 Cholesterol in HDL [Mass/Vol] 60 mg/dL >40 [facility] Comment on above: The drugs N-Acetylcy steine and Metamizole may falsely depress this assay. Reference Range HDL <40 mg/dL Low HDL Cholesterol HDL >or= 60 mg/dL High HDL Cholesterol Serum or plasma cholesterol in VLDL measurement (mass/volume)Ordered By: Dr. Snowden on 03-26-2022 Cholesterol in VLDL [Mass/Vol] 23 mg/dL 5-40 [facility] Serum or plasma creatinine m easurement (mass/volume)Ordered By: Dr. Snowden on 03-26-2022 Creatinine [Mass/Vol] 0.74 mg/dL 0.55-1.02 [facility] Comment on above: The validity of the calculated GFR & GFRAA in patients over 70 years has not been determined. Clinical correlation is essential. Serum or plasma low density lipoprotein (LDL) cholesterol measurement (mass/volume)Ordered By: Dr. Snowden on 03-26-2022 Cholesterol in LDL [Mass/Vol] 93 mg/dL 0-130 [facility] Serum or plasma urea nitroge n measurement (mass/volume)Ordered By: Dr. Snowden on 03-26-2022 Urea nitrogen [Mass/Vol] 14 mg/dL 7-18 [facility] Thin prep Papanicolaou smear with manual screeningOrdered By: Dr. Snowden on 03-26-2022 Thin prep Papanicolaou smear with manual screening 18 U/L 15-37 [facility] Thin prep Papanicolaou smear with manual screening 8 5-15 [facility] Absolute lymphocyte counton 09-25-2021 Lymphocytes Auto (Unsp spec) [#/Vol] 1.32 10*3/uL 0.83-4.51 [facility] Work Phone: Basophil percentageon 2021 Basophils/100 WBC (Bld) 0.6 % 0-1 [facility] Work Phone: Bilirubin [Mass/Vol] 0.40 mg/dL 0.20-1.00 [facility] Work Phone: Comment on above: For patients on eltr ombopag therapy, use of Dim[place] TBIL is not recommended. Chloride [Moles/Vol] 106 mmol/L 98-107 [facility] Work Phone: [phone] Cholesterol [Mass/Vol] 170 mg/dL <200 [facility] Work Phone: [phone] Comment on above: <200 mg/dL Desirable 200-240 mg/dL Borderline >240 mg/dL High Risk Eosinophils/100 WBC (Bld) 2.4 % 0-5 [facility] Work Phone: [phone] Glucose [Mass/Vol] 96 mg/dL 74-106 [facility] Work Phone: [phone] Neutrophils (Bld) [#/Vol] 4.8 10*3/uL 2.0-7.7 [facility] Work Phone: [phone] Neutrophils/100 WBC (Bld) 68.8 % 47-70 [facility] Work Phone: [phone] Potassium [Moles/Vol] 3.9 mmol/L 3.5-5.1 [facility] Work Phone: [phone] Protein [Mass/Vol] 7.2 g/dL 6.4-8.2 [facility] Work Phone: [phone] Sodium [Moles/Vol] 141 mmol/L 136-145 [facility] Work Phone: [phone] Triglyceride [Mass/Vol] 93 mg/dL <199 [facility] Work Phone: Comment on above: The drugs N-Acetylcy steine and Metamizole may falsely depress this assay.Serum Triglycerides Reference Interval Normal <150 mg/dL Borderline high 150 - 199 mg/dL High 200 - 499 mg/dL Very High > or = 500 mg/dL WBC (Bld) [#/Vol] 7.0 10*3/uL 4.4-11.0 [facility] Work Phone: [phone] Blood erythrocytes count (nu mber/volume)on 09-25-2021 RBC (Bld) [#/Vol] 4.05 10*6/uL 4.2-5.4 [facility] Work Phone: [phone] Blood hemoglobin measurement (mass/volume)on 09-25-2021 Hemoglobin (Bld) [Mass/Vol] 12.8 g/dL 12.0-15. 0 [facility] Work Phone: Blood lymphocytes/100 leukoc yteson 09-25-2021 Lymphocytes/100 WBC (Bld) 18.9 % 19-41 [facility] Work Phone: Blood monocytes/100 leukocyt eson 09-25-2021 Monocytes/100 WBC (Bld) 9.0 % 0-10 [facility] Work Phone: Blood platelet mean volumeon 09-25-2021 Platelet mean volume (Bld) [Entitic vol] 10.1 fL 6.2-12.0 [facility] Work Phone: [phone] Determination of erythrocyte mean corpuscular volume (MCV)on 09-25-2021 MCV (RBC) [Entitic vol] 98.3 fL 81-99 [facility] Work Phone: [phone] Hematocrit Auto (Bld) [Volum e fraction]on 09-25-2021 Hematocrit (Bld) [Volume fraction] 39.8 % 37-47 [facility] Work Phone: [phone] Laboratory - Chemistry and C hemistry - challengeon 09-25-2021 ALP [Catalytic activity/Vol] 62 U/L 45-117 [facility] Work Phone: [phone] ALT [Catalytic activity/Vol] 20 U/L 13-56 [facility] Work Phone: [phone] CO2 [Moles/Vol] 29.0 mmol/L 21.0-32.0 [facility] Work Phone: [phone] Globulin (S) [Mass/Vol] 3.7 g/dL 2.2-4.2 [facility] Work Phone: [phone] Urea nitrogen/Creatinine [Mass ratio] 17.0 mg/mg 10-20 [facility] Work Phone: Laboratory - Hematology and Cell countson 09-25-2021 Erythrocyte distribution width (RBC) [Entitic vol] 47.1 fL 35.1-43.9 [facility]: Erythrocyte distribution width (RBC) [Ratio] 13.2 % 11.6-14.6 [facility] Work Phone: Immature granulocytes/100 WBC (Bld) 0.300 % 0.0-0.9 [facility] Work Phone: Comment on above: IG% - Immature Granu locytes (promyelocytes, myelocytes and metamyelocytes) > 1% indicates that a LEFT SHIFT is Present. MCH (RBC) [Entitic mass] 31.6 pg 27.0-32.0 [facility] Work Phone: Nucleated RBC/100 WBC (Bld) [Ratio] 0 % 0-5 [facility] Work Phone: MCHC Auto (RBC) [Mass/Vol]on 09-25-2021 MCHC (RBC) [Mass/Vol] 32.2 g/dL 32-36 [facility] Work Phone: No Panel Informationon 09-25 Estimated GFR (MDRD) Amer 95 mL/min >60 [facility] Work Phone: Comment on above: GFR Calc Estimated GFR (MDRD) Non-Af Amer 78 mL/min >60 [facility] Work Phone: Comment on above: Non- GFR Calc Thyroid Stimulating Hormone (TSH) 0.89 uIU/mL 0.358-3.74 [facility] Work Phone: Vitamin D 25-Hydroxy 76.5 ng/mL [facility] Work Phone: Comment on above: Vitamin D 25(OH) Sta tus Range Deficiency <20 ng/mL (50nmol/L) Insufficiency 20 - 30 ng/mL (50 - 75 nmol/L) Sufficiency 30 - 100 ng/mL (75 - 250 nmol/L) Toxicity >100 ng/mL (>250 nmol/L) Platelets bldon 09-25-2021 Platelets (Bld) [#/Vol] 227 10*3/uL 150-450 [facility] Work Phone: Serum or plasma albumin gianluca urement (mass/volume)on 09-25-2021 Albumin [Mass/Vol] 3.5 g/dL 3.2-5.0 [facility] Work Phone: Serum or plasma albumin/glob ulin mass ratioon 09-25-2021 Albumin/Globulin [Mass ratio] 0.9 {ratio} 0.9-2.4 [facility] Work Phone: Serum or plasma calcium gianluca urement (mass/volume)on 09-25-2021 Calcium [Mass/Vol] 9.2 mg/dL 8.5-10.1 [facility] Work Phone: Serum or plasma cholesterol in HDL measurement (mass/volume)on 09-25-2021 Cholesterol in HDL [Mass/Vol] 60 mg/dL >40 [facility] Work Phone: Comment on above: The drugs N-Acetylcy steine and Metamizole may falsely depress this assay. Reference Range HDL <40 mg/dL Low HDL Cholesterol HDL >or= 60 mg/dL High HDL Cholesterol Serum or plasma cholesterol in VLDL measurement (mass/volume)on 09-25-2021 Cholesterol in VLDL [Mass/Vol] 19 mg/dL 5-40 [facility] Work Phone: Serum or plasma creatinine m easurement (mass/volume)on 09-25-2021 Creatinine [Mass/Vol] 0.76 mg/dL 0.55-1.02 [facility] [place] Work Phone: Comment on above: The validity of the calculated GFR & GFRAA in patients over 70 years has not been determined. Clinical correlation is essential. Serum or plasma low density lipoprotein (LDL) cholesterol measurement (mass/volume)on 09-25-2021 Cholesterol in LDL [Mass/Vol] 91 mg/dL 0-130 [facility] Work Phone: Serum or plasma urea nitroge n measurement (mass/volume)on 09-25-2021 Urea nitrogen [Mass/Vol] 13 mg/dL 7-18 [facility] Work Phone: Thin prep Papanicolaou smear with manual screeningon 09-25-2021 Thin prep Papanicolaou smear with manual screening 15 U/L 15-37 [facility] Work Phone: Thin prep Papanicolaou smear with manual screening 6 5-15 [facility] Work Phone: Lab Report: Basic Metabolic Profile (BMP)on 12-17-2016 Anion gap 6 mmol/L Invalid Interpretation Code 5-15 [employer] Work Phone: [phone] BUN/Creatinine Ratio 14.8 RATIO Invalid Interpretation Code 10-20 [employer] Work Phone: [phone] Calcium 9.2 mg/dL Invalid Interpretation Code 8.5-10.1 [employer] Work Phone: [phone] Chloride 102 mmol/L Invalid Interpretation Code 98-107 [employer] Work Phone: [phone] CO2 30.0 mmol/L Invalid Interpretation Code 21.0-32.0 [employer] Phone: [phone] Creatinine 0.74 mg/dL Invalid Interpretation Code 0.55-1.02 [employer] Work Phone: [phone] eGFR (non-black) 82 mL/min/{1.73_m2} Invalid Interpretation Code >60 [employer] Work Phone: [phone] eGFR (non-black) 99 mL/min/{1.73_m2} Invalid Interpretation Code >60 [employer] Work Phone: [phone] Glucose 90 mg/dL Invalid Interpretation Code 70-110 [employer] Work Phone: [phone] Potassium 3.9 mmol/L Invalid Interpretation Code 3.5-5.1 [employer] Work Phone: [phone] Sodium 138 mmol/L Invalid Interpretation Code 136-145 [employer] Phone: [phone] Urea nitrogen 11 mg/dL Invalid Interpretation Code 7-18 [employer] Phone: [phone] Office Visiton 12-17-2016 Documentation of current medications (procedure) Done Invalid Interpretation Code [employer] Phone: [phone] Fall risk assessment Yes Invalid Interpretation Code [employer] Phone: [phone] Clinical Lists Update: 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 03-10-2017 Left ventricular Ejection fraction 65-70 Invalid Interpretation Code [employer] Work Phone: [phone] Office Visiton 06-13-2015 Tobacco use CPHS Never smoker Invalid Interpretation Code [employer] Work Phone: [phone] External Other: Preferred Me thod of Contacton 03-08-2015 Patient's prefered method of contact phone Invalid Interpretation Code [employer] Work Phone: [phone] Office Visit: [facility] 03-08-20 15 Dietary management education, guidance, and counseling (procedure) yes Invalid Interpretation Code [employer] Work Phone: [phone] General cardiovascular disease 10Y risk [#] Mayfield.D'Agostino 15 % Invalid Interpretation Code [employer] Work Phone: [phone] Clinical Lists Update: Pre senior enterprise architect 11-12-2014 Magnesium 1.6 mg/dL Low [employer] Work Phone: Office Visiton 08-05-2014 cardiac risk group B Invalid Interpretation Code [employer] Work Phone: [phone] Clinical Lists Update: Pre senior enterprise architect 05-23-2014 Cholesterol 171 mg/dL Invalid Interpretation Code [employer] Work Phone: [phone] HDL Cholesterol 46 mg/dL Invalid Interpretation Code [employer] Work Phone: [phone] LDL Cholesterol 109 mg/dL Invalid Interpretation Code [employer] Work Phone: [phone] Triglyceride 78 mg/dL Invalid Interpretation Code [employer] Work Phone: [phone] very low density lipoproteins 16 mg/dL Invalid Interpretation Code [employer] Work Phone: [phone] Clinical Lists Update: Pre senior enterprise architect 05-22-2014 basophils as percent of blood leukocytes, manual count 0.5 % Invalid Interpretation Code [employer] Work Phone: [phone] eosinophils as percent of blood leukocytes, manual count 0.7 % Invalid Interpretation Code [employer] Work Phone: [phone] Erythrocytes (RBC) 4.37 10*6/uL Invalid Interpretation Code [employer] Work Phone: [phone] Hematocrit (HCT) 40.7 % Invalid Interpretation Code [employer] Work Phone: [phone] Hemoglobin (HGB) 13.9 g/dL Invalid Interpretation Code [employer] Work Phone: [phone] Lymphocytes/100 leukocytes 15.7 % Low [employer] Work Phone: [phone] MCH 31.8 pg Invalid Interpretation Code [employer] Work Phone: [phone] MCHC 34.2 g/dL Invalid Interpretation Code [employer] Work Phone: [phone] MCV 93.1 fL Invalid Interpretation Code [employer] Work Phone: [phone] Monocytes/100 leukocytes 6.6 % Invalid Interpretation Code [employer] Work Phone: [phone] neutrophils, band form as percent of blood leukocytes, manual count 76.3 % High [employer] Work Phone: [phone] Platelets 244 10*3/mm3 Invalid Interpretation Code [employer] Work Phone: [phone] RDW-CA 13.0 % Invalid Interpretation Code [employer] Work Phone: [phone] Thyroid stimulating hormone (TSH) 0.88 u[iU]/mL Invalid Interpretation Code [employer] Work Phone: [phone] WBC (Leukocytes) 6.1 10*3/uL Invalid Interpretation Code [employer] Work Phone: [phone] Clinical Lists Update: 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 06-23-2012 Albumin 4.0 g/dL Invalid Interpretation Code [employer] Work Phone: [phone] Albumin/Globulin Ratio 1.0 {ratio} Invalid Interpretation Code [employer] Work Phone: [phone] Alkaline phosphatase (ALP) 95 U/L Inval id Interpretation Code [employer] Work Phone: [phone] Aspartate aminotransferase (AST) 24 U/L Invalid Interpretation Code [employer] Work Phone: [phone] Bilirubin (total) 0.20 mg/dL Invalid Interpretation Code [employer] Work Phone: [phone] Globulin 3.9 g/dL Invalid Interpretation Code [employer] Work Phone: [phone] Protein 7.9 g/dL Invalid Interpretation Code [facility] Work Phone: Lab Reporton 06-13-2011 Alanine aminotransferase (ALT) 42 U/L Invalid Interpretation Code [facility] Work Phone: Bilirubin (direct) 0.12 mg/dL Invalid Interpretation Code [facility] Work Phone: Vital Signs Date Time Vital Sign Value Performing Clinician Facility 08-13-2024 07:56-0400 Diastolic blood pressure 103 mm[Hg] Seth Chowdary MD Work Phone: [facility] 08-13-2024 07:56-0400 Heart rate 98 /min Seth Chowdary MD Work Phone: [facility] 08-13-2024 07:56-0400 Systolic blood pressure 148 mm[Hg] Seth Chowdary MD Work Phone: [facility] 08-13-2024 07:52-0400 Body height 147.3 cm Seth Chowdary MD Work Phone: [facility] 08-13-2024 07:52-0400 Body mass index (BMI) [Ratio] 31.33 kg/m2 Seth Chowadry MD Work Phone: [facility] 08-13-2024 07:52-0400 Body weight 68 kg Seth Chowdary MD Work Phone: [facility] 08-13-2024 07:52-0400 Respiratory rate 18 /min Seth Chowdary MD Work Phone: [facility] 07-21-2024 12:56-0400 Body height 147.3 cm Jovanni Matthew MD Work Phone: [facility] 07-21-2024 12:56-0400 Body mass index (BMI) [Ratio] 31.35 kg/m2 Jovanni Matthew MD Work Phone: [facility] 07-21-2024 12:56-0400 Body weight 68.04 kg Jovanni Matthew MD Work Phone: [facility] 07-21-2024 12:56-0400 Diastolic blood pressure 75 mm[Hg] Jovanni Matthew MD Work Phone: [facility] 07-21-2024 12:56-0400 Heart rate 98 /min Jovanni Matthew MD Work Phone: [facility] 07-21-2024 12:56-0400 SaO2% (BldA) [Mass fraction] 96 % Jovanni Matthew MD Work Phone: [facility] 07-21-2024 12:56-0400 Systolic blood pressure 109 mm[Hg] Jovanni Matthew MD Work Phone: [facility] 05-21-2024 08:45-0500 Heart rate 71 /min Dr. Michael Snowden MD Work Phone: [facility] 05-21-2024 08:40-0500 Body temperature 98 [degF] Dr. Michael Snowden MD Work Phone: [facility] 05-21-2024 08:40-0500 Diastolic blood pressure 87 mm[Hg] Dr. Michael Snowden MD Work Phone: [facility] 05-21-2024 08:40-0500 Respiratory rate 17 /min Dr. Michael Snowden MD Work Phone: [facility] 05-21-2024 08:40-0500 SaO2% (BldA) [Mass fraction] 95 % Dr. Michael Snowden MD Work Phone: [facility] 05-21-2024 08:40-0500 Systolic blood pressure 144 mm[Hg] Dr. Michael Snowden MD Work Phone: [facility] 05-18-2024 11:00-0500 Body mass index (BMI) [Ratio] 32.5 kg/m2 Dr. Michael Snowden MD Work Phone: [facility] 05-18-2024 11:00-0500 Body weight 70.[address] Michale Snowden MD Work Phone: [facility] 05-15-2024 05:41-0500 Inhaled oxygen flow rate 97 L/min Dr. Michael Snowden MD Work Phone: 6(537)024-854814 [place] [address] 05-12-2024 13:31-0500 Body height 147.[address] Michael Snowden MD Work Phone: 6(520)801-512172 [place] [address] 04-16-2024 10:20-0500 Heart rate 70 /min Dr. Michael Snowden MD Work Phone: 7(056)818-770572 [place] [address] 04-16-2024 10:10-0500 Body temperature 98.3 [degF] Dr. Michael Snowden MD Work Phone: 6(028)522-735214 [place] [address] 04-16-2024 10:10-0500 Diastolic blood pressure 71 mm[Hg] Dr. Michael Snowden MD Work Phone: 3(375)104-892572 [place] [address] 04-16-2024 10:10-0500 Respiratory rate 18 /min Dr. Michael Snowden MD Work Phone: 5(705)477-531572 [place] [address] 04-16-2024 10:10-0500 SaO2% (BldA) [Mass fraction] 95 % Dr. Michael Snowden MD Work Phone: 3(201)946-321172 [place] [address] 04-16-2024 10:10-0500 Systolic blood pressure 109 mm[Hg] Dr. Michael Snowden MD Work Phone: 9(693)919-275572 [place] [address] 04-15-2024 15:36-0500 Body weight 70.[address] Michael Snowden MD Work Phone: 8(920)045-741772 [place] [address] 04-11-2024 14:41-0500 Body mass index (BMI) [Ratio] 32.5 kg/m2 Dr. Michael Snowden MD Work Phone: 1(856)557-242714 [place] [address] 03-31-2024 00:00-0500 Body temperature 98 [degF] Dr. Michael Snowden MD Work Phone: 3(409)125-639772 [place] [address] 03-31-2024 00:00-0500 Diastolic blood pressure 78 mm[Hg] Dr. Michael Snowden MD Work Phone: 8(790)246-008172 [place] [address] 03-31-2024 00:00-0500 Heart rate 84 /min Dr. Michael Snowden MD Work Phone: [facility] 03-31-2024 00:00-0500 Respiratory rate 16 /min Dr. Michael Snowden MD Work Phone: 1(153)949-518814 [place] [address] 03-31-2024 00:00-0500 SaO2% (BldA) [Mass fraction] 99 % Dr. Michael Snowden MD Work Phone: 5(399)635-833614 [place] [address] 03-31-2024 00:00-0500 Systolic blood pressure 145 mm[Hg] Dr. Michael Snowden MD Work Phone: 8(792)755-733314 [place] [address] 05-09-2023 13:06-0500 Body height 149.[address] Michael nSowden Work Phone: 3(589)504-407572 [place] [address] 05-09-2023 13:06-0500 Body mass index (BMI) [Ratio] 30.9 kg/m2 Dr. Michael Snowden Work Phone: 8(587)204-582172 [place] [address] 05-09-2023 13:06-0500 Body weight 69.[address] Michael Snowden Work Phone: 9(960)566-811738 [address] 05-09-2023 13:06-0500 Diastolic blood pressure 86 mm[Hg] Dr. Michael Snowden Work Phone: 8(430)109-678672 [place] [address] 05-09-2023 13:06-0500 Heart rate 59 /min Dr. Michael Snowden Work Phone: 1(673)245-536972 [place] [address] 05-09-2023 13:06-0500 Respiratory rate 18 /min Dr. Michael Snowden Work Phone: 0(001)212-289214 [place] [address] 05-09-2023 13:06-0500 SaO2% (BldA) [Mass fraction] 95 % Dr. Michael Snowden Work Phone: 5(846)992-788814 [place] [address] 05-09-2023 13:06-0500 Systolic blood pressure 154 mm[Hg] Dr. Michael Snowden Work Phone: 0(394)112-394514 [place] [address] 01-06-2023 14:34-0400 Body height 149.[address] Michael Snowden Work Phone: 6(812)288-936372 [place] [address] 01-06-2023 14:34-0400 Body mass index (BMI) [Ratio] 29.9 kg/m2 Dr. Michael Snowden Work Phone: [facility] 01-06-2023 14:34-0400 Body weight 67.[address] Michael Snowden Work Phone: [facility] 01-06-2023 14:34-0400 Diastolic blood pressure 80 mm[Hg] Dr. Michael Snowden Work Phone: [facility] 01-06-2023 14:34-0400 Heart rate 54 /min Dr. Michael Snowden Work Phone: [facility] 01-06-2023 14:34-0400 Respiratory rate 18 /min Dr. Michael Snowden Work Phone: [facility] 01-06-2023 14:34-0400 SaO2% (BldA) [Mass fraction] 95 % Dr. Michael Snowden Work Phone: [facility] 01-06-2023 14:34-0400 Systolic blood pressure 171 mm[Hg] Dr. Michael Snowden Work Phone: [facility] 01-04-2022 08:47-0400 Body height 149.[address] Michael Snowden Work Phone: [facility] Work Phone: 01-04-2022 08:47-0400 Body mass index (BMI) [Ratio] 31.3 kg/m2 Dr. Michael Snowden Work Phone: [facility] Work Phone: 01-04-2022 08:47-0400 Body weight 70.[address] Michael Snowden Work Phone: [facility] Work Phone: 01-04-2022 08:47-0400 Heart rate 52 /min Dr. Michael Snowden Work Phone: [facility] Work Phone: 01-04-2022 08:47-0400 Respiratory rate 16 /min Dr. Michael Snowden Work Phone: [facility] Work Phone: 01-04-2022 08:47-0400 SaO2% (BldA) [Mass fraction] 98 % Dr. Michael Snowden Work Phone: [facility] Work Phone: 12-17-2016 13:13-0400 BMI (Body Mass Index) 34.13 kg/m2 [facility] Work Phone: 12-17-2016 13:13-0400 BP Diastolic 80 mm[Hg] [facility] Work Phone: 12-17-2016 13:13-0400 BP Systolic 170 mm[Hg] [facility] Work Phone: 12-17-2016 13:13-0400 Height 149.86 cm [facility] Work Phone: 12-17-2016 13:13-0400 Pulse (Heart Rate) 56 /min [facility] Work Phone: 12-17-2016 13:13-0400 Respiratory Rate 20 /min [facility] Work Phone: 12-17-2016 13:13-0400 Weight 76.66 kg [facility] Work Phone: 06-13-2015 15:00-0400 BSA (Body Surface Area) 1.7 m2 [facility] Work Phone: 08-05-2014 13:18-0400 BP Diastolic 80 mm[Hg] [facility] Work Phone: 08-05-2014 13:18-0400 BP Systolic 114 mm[Hg] [facility] Work Phone: 08-05-2014 13:18-0400 Pulse (Heart Rate) 67 /min [facility] Work Phone: 03-19-2006 10:28-0500 Body height 0 cm Day Pacheco [facility] Work Phone: 03-19-2006 10:28-0500 Body temperature 98.4 [degF] Day Pacheco [facility] Work Phone: Comment on above: Method: Oral 03-19-2006 10:28-0500 Body weight 93.9 kg Day Pacheco [facility] Work Phone: 03-19-2006 10:28-0500 Diastolic blood pressure 84 mm[Hg] Day Pacheco [facility] Work Phone: Comment on above: Patient Position: Sitting; Cuff Location : Right Arm; Cuff Size: Standard 03-19-2006 10:28-0500 Head Occipital-frontal circumference 0 cm Day Pacheco [facility] Work Phone: 03-19-2006 10:28-0500 Heart rate 72 /min Day Pacheco [facility] Work Phone: Comment on above: Pattern: Regular 03-19-2006 10:28-0500 Respiratory rate 18 /min Day Pacheco [facility] Work Phone: Comment on above: Pattern: Unlabored 03-19-2006 10:28-0500 Systolic blood pressure 132 mm[Hg] Day Pacheco [facility] Work Phone: Comment on above: Patient Position: Sitting; Cuff Location : Right Arm; Cuff Size: Standard Encounters Encounter Date Encounter Type Care Provider Facility Start: 08-31-2024 ambulatory [facility] Facility:[facility] Start: 08-25-2024 End: 08-25-2024 ambulatory Ajay Grant MD Work Phone: Endocrinology Comment on above: Medication denial Start: 08-25-2024 End: 08-25-2024 E-mail encounter from caregiver Ajay Grant MD Work Phone: Endocrinology Start: 08-24-2024 ambulatory Michael Snowden Facility:[facility] Start: 08-24-2024 Nikia Cabezas Start: 08-22-2024 End: 08-22-2024 Telephone encounter Ajay Grant MD Work Phone: [facility] Comment on above: Medication Preauthor ization (Evenity 210mg- Denied) Start: 08-17-2024 Nikia Cabezas Start: 08-16-2024 End: 08-17-2024 ambulatory Ajay Grant MD Work Phone: Endocrinology Comment on above: Medication update Start: 08-16-2024 End: 08-16-2024 E-mail encounter from caregiver Ajay Grant MD Work Phone: Endocrinology Start: 08-13-2024 End: 08-13-2024 Patient encounter procedure Seth Chowdary MD Work Phone: [facility] [place] Comment on above: Acquired spondylolis thesis (Primary Dx); Cervical spondylosis without myelopathy; Neural foraminal stenosis of lumbar spine; Closed compression fracture of body of L1 vertebra (HCC) Start: 08-13-2024 End: 08-13-2024 ambulatory SETH CHOWDARY Facility:[facility] Start: 08-10-2024 End: 08-10-[address] Michael Snowden MD Work Phone: [facility] Work Phone: Start: 08-10-2024 End: 08-10-2024 Nikia Cabezas Start: 08-10-2024 End: 08-10-2024 ambulatory Nikia JAVIER Facility:[facility] Start: 08-03-2024 Audra Cabezas Start: 08-03-2024 End: 08-03-2024 ambulatory Michael Snowden Facility:[facility] Start: 07-27-2024 End: 07-27-2024 Audra MANUEL -ANTHONY Cabezas Start: 07-27-2024 End: 07-27-2024 ambulatory Michael Snowden Facility:[facility] Start: 07-21-2024 End: 07-21-2024 ambulatory MILLIE PETTY Facility:[facility] Start: 07-21-2024 End: 07-21-2024 ambulatory AJAY EDY LYNN Facility:[facility] Start: 07-21-2024 End: 07-21-2024 Patient encounter procedure Jovanni Matthew MD Work Phone: Rehab Medicine Comment on above: Osteopenia, unspecif ied location (Primary Dx); History of vertebral compression fracture; Spondylolisthesis, grade 3 Start: 07-21-2024 End: 07-21-2024 ambulatory JOVANNI MATTHEW Facility:[facility] Start: 07-20-2024 End: 07-20-[address] Michael Snowden MD Work Phone: [facility] Work Phone: Start: 07-20-2024 End: 07-20-2024 Nikia Cabezas Start: 07-20-2024 End: 07-20-2024 ambulatory Nikia JAVIER Facility:[facility] Start: 07-13-2024 End: 07-13-[address] Michael Snowden MD Work Phone: [facility] Work Phone: Start: 07-13-2024 End: 07-13-2024 Nikia Cabezas Start: 07-13-2024 End: 07-13-2024 ambulatory Nikia JAVIER Facility:[facility] Start: 07-06-2024 Registered Referred Nikia Cabezas Start: 07-06-2024 End: 07-06-2024 Nikia Cabezas Start: 07-06-2024 End: 07-06-2024 ambulatory Nikia JAVIER Facility:[facility] Start: 06-29-2024 Registered Referred Audra izaguirre DRIVER EXAMINER-C -[facility] [place] Start: 06-29-2024 End: 06-29-2024 Audra Drake NP-C -[facility] [place] Start: 06-29-2024 End: 06-29-2024 ambulatory Michael Chi Sp Facility:[facility] Start: 06-23-2024 End: 06-23-2024 ambulatory Michael Chi Sp [place] [place] Start: 06-23-2024 End: 06-23-2024 Audra Drake NP-C -[facility] Work Phone: Start: 06-22-2024 End: 06-22-[address] Michael Snowden MD Work Phone: [facility] Work Phone: Start: 06-22-2024 Registered Referred Audra izaguirre NP-C -[facility] [place] Start: 06-22-2024 End: 06-22-2024 Audra Drake NP-C -[facility] [place] Start: 06-22-2024 End: 06-22-2024 ambulatory Michael Chi Sp Facility:[facility] Start: 06-15-2024 End: 06-15-[address] Michael Snowden MD Work Phone: [facility] Work Phone: Start: 06-15-2024 End: 06-15-2024 Departed Referred Nikia Cabezas Start: 06-15-2024 Registered Referred Nikia Cabezas Start: 06-15-2024 End: 06-15-2024 Nikia Cabezas Start: 06-15-2024 End: 06-15-2024 ambulatory Nikia JAVIER Facility:[facility] Start: 06-08-2024 End: 06-08-2024 Departed Referred Nikia Cabezas Start: 06-08-2024 Registered Referred Nikia Cabezas Start: 06-08-2024 End: 06-08-2024 Nikia Cabezas Start: 06-08-2024 End: 06-08-2024 ambulatory Nikia Henderson OLS Facility:[facility] Start: 06-01-2024 End: 06-01-[address] Michael Snowden MD Work Phone: [facility] Work Phone: Start: 06-01-2024 End: 06-01-2024 Departed Referred Nikia Cabezas Start: 06-01-2024 End: 06-01-2024 Nikia Cabezas Start: 06-01-2024 End: 06-01-2024 ambulatory Nikia Jainromi JAVIER Facility:[facility] Start: 05-25-2024 End: 05-25-2024 ambulatory Michael Snowden Facility:[facility] Start: 05-25-2024 End: 05-25-[address] Nikia Henderson MD -[facility] Work Phone: Start: 05-25-2024 End: 05-25-2024 Dr. Nikia Henderson MD -[facility] Work Phone: Start: 05-21-2024 End: 05-21-2024 ambulatory Audra Drake DRIVER EXAMINER Facility:[facility] Start: 05-21-2024 End: 05-21-2024 Patient encounter procedure Audra Drake DRIVER EXAMINER-C -[facility] Work Phone: Start: 05-21-2024 End: 05-21-2024 Audra Drake DRIVER EXAMINER-C -[facility] Work Phone: Start: 04-16-2024 End: 05-21-2024 Dr. Michael Snowden MD -Transitional Care Unit Start: 04-16-2024 End: 05-21-2024 Evaluation and management of inpatient Dr. Michael Snowden MD -[facility] Care [facility] Start: 04-16-2024 Non-patient / Non-visit Dr. Minerva Hernandez MD -[facility] Work Phone: Start: 04-16-2024 Dr. Gabo Hernandez MD -[facility] Work Phone: Start: 04-15-2024 Non-patient / Non-visit Dr. Minerva Hernandez MD -[facility] Work Phone: Start: 04-15-2024 Dr. Gabo Hernandez MD -[facility] Work Phone: Start: 04-14-2024 ambulatory Gabo Hernandez Facility:[facility] Start: 04-14-2024 End: 04-16-2024 Evaluation and management of inpatient Dr. Gabo Hernandez MD -[facility] Work Phone: Start: 04-14-2024 End: 04-16-2024 Dr. Gabo Hernandez MD -[facility] Work Phone: Start: 04-14-2024 Non-patient / Non-visit Dr. Minerva Hernandez MD -[facility] Work Phone: Start: 04-14-2024 Dr. Gabo Hernandez MD -[facility] Work Phone: Start: 04-14-2024 End: 04-14-2024 ambulatory Indu Pacheco Facility:[facility] Start: 04-14-2024 End: 04-14-2024 Non-patient / Non-visit Dr. Indu Pacheco MD -[facility] Work Phone: Start: 04-14-2024 End: 04-14-2024 [facility] Start: 04-13-2024 Non-patient / Non-visit Dr. Minerva Hernandez MD [facility] Work Phone: Start: 04-13-2024 Dr. Gabo Hernandez MD -[facility] Work Phone: Start: 04-12-2024 Non-patient / Non-visit Dr. Gaby Watkins MD -[facility] Work Phone: Start: 04-12-2024 Dr. Lesli mccoy MD -[facility] Work Phone: Start: 04-11-2024 ambulatory Lesli Watkins [facility] Start: 04-11-2024 Non-patient / Non-visit Dr. Gaby Watkins MD -[facility] Work Phone: Start: 04-11-2024 Dr. Lesli mccoy MD -[facility] Work Phone: Start: 03-30-2024 End: 03-31-2024 Dr. Floridalma Bingham DO -Emergency Department Work Phone: Start: 03-30-2024 End: 03-31-2024 Emergency department patient visit Dr. Floridalma Bingham DO -Emergency Department Work Phone: Start: 03-25-2024 End: 03-25-2024 ambulatory Michael Chi Sp Facility:[facility] Start: 03-25-2024 End: 03-25-[address] Michael Snowden MD -Physical Therapy Work Phone: Start: 03-25-2024 End: 03-25-2024 Dr. Michael Snowden MD -Physical Therapy Work Phone: Start: 02-25-2024 End: 02-25-2024 Emergency department patient visit Michael Chi Sp Facility:[facility] Start: 02-23-2024 End: 02-23-2024 ambulatory Michael Chi Sp Facility:[facility] Start: 01-08-2024 End: 01-08-2024 ambulatory Michael Chi Sp Facility:[facility] Start: 12-15-2023 End: 12-15-2023 ambulatory Michael Chi Sp Facility:[facility] Start: 11-13-2023 End: 11-13-2023 ambulatory Michael Chi Sp Facility:[facility] Start: 11-10-2023 End: 11-10-2023 ambulatory Michael Chi Sp Facility:[facility] Start: 10-29-2023 ambulatory Michael Chi Sp [facility] Start: 10-29-2023 End: 10-29-2023 ambulatory Michael Chi Sp Facility:[facility] Start: 10-08-2023 ambulatory Yasmin Pooled [facility] Start: 10-08-2023 End: 10-08-2023 ambulatory Michael Chi Sp Facility:[facility] Start: 09-30-2023 End: 09-30-2023 ambulatory Michael Chi Sp Facility:[facility] Start: 09-22-2023 End: 09-22-2023 ambulatory Gaetano Cleary Facility:[facility] Start: 09-09-2023 End: 09-09-2023 ambulatory Michael Chi Sp Facility:[facility] Start: 06-20-[address] Michael guillen Work Phone: [facility]-Physical Therapy Work Phone: Start: 06-19-2023 Non-patient / Non-visit Dr. Augusto Snowden Work Phone: [facility] Start: 06-19-2023 End: 06-19-[address] Michael Snowden Work Phone: [facility] Work Phone: Start: 06-19-2023 End: 06-19-[address] Michael Snowden Work Phone: [facility]-Cardiovascular Services Work Phone: Start: 05-30-[address] Michael guillen Work Phone: [facility]-Physical Therapy Work Phone: Start: 05-28-2023 End: 05-28-[address] Michael Snowden Work Phone: [facility] Work Phone: Start: 05-28-2023 End: 05-28-[address] [facility] Start: 05-09-2023 End: 05-09-[address] Michael Snowden Work Phone: [facility] Work Phone: Start: 05-09-2023 End: 05-09-[address] Michael Snowden Work Phone: [facility] Work Phone: Start: 04-28-2023 End: 04-28-[address] Michael Snowden Work Phone: [facility] Work Phone: Start: 04-28-2023 End: 04-28-[address] Michael Snowden [facility]: Start: 02-24-2023 End: 02-24-[address] Michael Snowden Work Phone: [facility] Work Phone: Start: 01-06-2023 End: 01-06-[address] Michael Snowden Work Phone: [facility] Work Phone: Start: 11-28-[address] Michael guillen [facility]: Start: 11-27-2022 End: 11-27-[address] Michael Snowden Work Phone: [facility] Work Phone: Start: 11-27-2022 End: 11-27-[address] Michael Snowden [facility] Start: 11-05-2022 End: 11-05-[address] Michael Snowden Work Phone: [facility] Work Phone: Start: 11-05-2022 End: 11-05-[address] Michael Snowden Work Phone: [facility]-Physical Therapy Work Phone: Start: 09-25-2022 End: 09-25-[address] Michael Snowden Work Phone: [facility] Work Phone: Start: 08-08-[address] Michael guillen Work Phone: [facility]-Physical Therapy Start: 08-05-2022 End: 08-05-[address] Michael Snowden Work Phone: [facility] Work Phone: Start: 08-05-2022 End: 08-05-[address] Michael Snowden Work Phone: [facility]-Laboratory, Specimen Start: 07-16-[address] Michael guillen Work Phone: [facility]-Physical Therapy Start: 07-16-2022 End: 07-16-[address] Michael Snowden Work Phone: [facility] Work Phone: Start: 07-16-2022 End: 07-16-[address] Michael Snowden Work Phone: [facility]-Ultrasound, [facility] Start: 06-10-[address] Michael guillen Work Phone: [facility]-Physical Therapy Start: 06-07-2022 End: 06-07-[address] Michael Snowden Work Phone: [facility] Work Phone: Start: 06-07-2022 End: 06-07-[address] Michael Snowden Work Phone: [facility] Start: 03-26-2022 End: 03-26-[address] Michael Snowden Work Phone: [facility] Work Phone: Start: 03-26-2022 End: 03-26-[address] Michael Snowden Work Phone: [facility], y Office 3rd Flr Start: 02-15-[address] Michael guillen [facility] Start: 01-07-[address] Michael guillen [facility] Phone[facility] Start: 01-04-2022 End: 01-04-[address] Michael Snowden Work Phone: [facility] Start: 12-24-2021 End: 12-24-[address] Michael Snowden Work Phone: [facility] Work Phone: Start: 12-24-2021 End: 12-24-[address] Michael Snodwen [facility] Start: 09-25-2021 End: 09-25-2021 Patient encounter procedure [facility] Office 3rd Flr Start: 09-24-2021 [facility] Start: 03-19-2006 End: 03-19-2006 Patient encounter procedure Noreen Fast DO Work Phone: [facility] Start: 02-26-2006 End: 02-27-2006 Patient encounter procedure Noreen Fast DO Work Phone: [facility] Start: 02-26-2006 End: 02-26-2006 Historical Summary Noreen Fast DO Work Phone: [facility] Procedures Date Procedure Procedure Detail Performing Clinician Start: 08-24-2024 Blood count smear rscp w/mnl difrntl wbc count Dr. Michael Snowden MD Work Phone: Start: 08-24-2024 Mean corpuscular hem oglobin concentration determination Dr. Michael Snowden MD Work Phone: Start: 08-24-2024 Nucleated red blood cell count procedure Dr. Michael Snowden MD Work Phone: Start: 08-24-2024 Platelet mean volume determination Dr. Michael Snowden MD Work Phone: Start: 08-17-2024 Blood count smear mc rscp w/mnl difrntl wbc count Dr. Michael Snowden MD Work Phone: Start: 08-17-2024 Mean corpuscular hem oglobin concentration determination Dr. Michael Snowden MD Work Phone: Start: 08-17-2024 Nucleated red blood cell count procedure Dr. Michael Snowden MD Work Phone: Start: 08-17-2024 Platelet mean volume determination Dr. Michael Snowden MD Work Phone: Start: 08-10-2024 Blood count smear mc rscp w/mnl difrntl wbc count Dr. Michael Snowden MD Work Phone: Start: 08-10-2024 Mean corpuscular hem oglobin concentration determination Dr. Michael Snowden MD Work Phone: Start: 08-10-2024 Nucleated red blood cell count procedure Dr. Michael Snowden MD Work Phone: Start: 08-10-2024 Platelet mean volume determination Dr. Michael Snowden MD Work Phone: Start: 08-03-2024 Blood count smear mc rscp w/mnl difrntl wbc count Dr. Michael Snowden MD Work Phone: Start: 08-03-2024 Mean corpuscular hem oglobin concentration determination Dr. Michael Snowden MD Work Phone: Start: 08-03-2024 Nucleated red blood cell count procedure Dr. Michael Snowden MD Work Phone: Start: 08-03-2024 Platelet mean volume determination Dr. Michael Snowden MD Work Phone: Start: 08-03-2024 Vitamin D, 25-hydrox y measurement Dr. Michael Snowden MD Work Phone: Start: 07-27-2024 Blood count smear mc rscp w/mnl difrntl wbc count Dr. Michael Snowden MD Work Phone: Start: 07-27-2024 Mean corpuscular hem oglobin concentration determination Dr. Michael Snowden MD Work Phone: Start: 07-27-2024 Nucleated red blood cell count procedure Dr. Michael Snowden MD Work Phone: Start: 07-27-2024 Platelet mean volume determination Dr. Michael Snowden MD Work Phone: Start: 07-20-2024 Blood count smear mc rscp w/mnl difrntl wbc count Dr. Michael Snowden MD Work Phone: Start: 07-20-2024 Mean corpuscular hem oglobin concentration determination Dr. Michael Snowden MD Work Phone: Start: 07-20-2024 Nucleated red blood cell count procedure Dr. Michael Snowden MD Work Phone: Start: 07-20-2024 Platelet mean volume determination Dr. Michael Snowden MD Work Phone: Start: 07-13-2024 Blood count smear mc rscp w/mnl difrntl wbc count Dr. Michael Snowden MD Work Phone: Start: 07-13-2024 Mean corpuscular hem oglobin concentration determination Dr. Micahel Snowden MD Work Phone: Start: 07-13-2024 Nucleated red blood cell count procedure Dr. Michael Snowden MD Work Phone: Start: 07-13-2024 Platelet mean volume determination Dr. Michael Snowden MD Work Phone: Start: 07-06-2024 Blood count smear mc rscp w/mnl difrntl wbc count Dr. Michael Snowden MD Work Phone: Start: 07-06-2024 Mean corpuscular hem oglobin concentration determination Dr. Michael Snowden MD Work Phone: Start: 07-06-2024 Nucleated red blood cell count procedure Dr. Michael Snowden MD Work Phone: Start: 07-06-2024 Platelet mean volume determination Dr. Michael Snowden MD Work Phone: Start: 06-29-2024 Blood count smear mc rscp w/mnl difrntl wbc count Dr. Michael Snowden MD Work Phone: Start: 06-29-2024 Mean corpuscular hem oglobin concentration determination Dr. Michael Snowden MD Work Phone: Start: 06-29-2024 Nucleated red blood cell count procedure Dr. Michael Snowden MD Work Phone: Start: 06-29-2024 Platelet mean volume determination Dr. Michael Snowden MD Work Phone: Start: 06-22-2024 Blood count smear mc rscp w/mnl difrntl wbc count Dr. Michael Snowden MD Work Phone: Start: 06-22-2024 Mean corpuscular hem oglobin concentration determination Dr. Michael Snowden MD Work Phone: Start: 06-22-2024 Nucleated red blood cell count procedure Dr. Michael Snowden MD Work Phone: Start: 06-22-2024 Platelet mean volume determination Dr. Michael Snowden MD Work Phone: Start: 06-15-2024 Blood count smear mc rscp w/mnl difrntl wbc count Dr. Michael Snowden MD Work Phone: Start: 06-15-2024 Mean corpuscular hem oglobin concentration determination Dr. Michael Snowden MD Work Phone: Start: 06-15-2024 Nucleated red blood cell count procedure Dr. Michael Snowden MD Work Phone: Start: 06-15-2024 Platelet mean volume determination Dr. Michael Snowden MD Work Phone: Start: 06-08-2024 Blood count smear mc rscp w/mnl difrntl wbc count Dr. Michael Snowden MD Work Phone: Start: 06-08-2024 Mean corpuscular hem oglobin concentration determination Dr. Michael Snowden MD Work Phone: Start: 06-08-2024 Nucleated red blood cell count procedure Dr. Michael Snowden MD Work Phone: Start: 06-08-2024 Platelet mean volume determination Dr. Michael Snowden MD Work Phone: Start: 06-01-2024 Blood count smear mc rscp w/mnl difrntl wbc count Dr. Michael Snowden MD Work Phone: Start: 06-01-2024 Mean corpuscular hem oglobin concentration determination Dr. Michael Snowden MD Work Phone: Start: 06-01-2024 Nucleated red blood cell count procedure Dr. Michael Snowden MD Work Phone: Start: 06-01-2024 Platelet mean volume determination Dr. Michael Snowden MD Work Phone: Start: 05-21-2024 Anion gap measurement Alla Snowden MD Work Phone: Start: 05-21-2024 Blood count smear mc rscp w/mnl difrntl wbc count Dr. Michael Snowden MD Work Phone: Start: 05-21-2024 BUN/Creatinine ratio Dr Timur Snowden MD Work Phone: Start: 05-21-[address] Michael Snowden MD Work Phone: Start: 05-21-2024 Mean corpuscular hem oglobin concentration determination Dr. Michael Snowden MD Work Phone: Start: 05-21-2024 Measurement of renal function Dr. Michael Snowden MD Work Phone: Start: 05-21-2024 Nucleated red blood cell count procedure Dr. Michael Snowden MD Work Phone: Start: 05-21-2024 Platelet mean volume determination Dr. Michael Snowden MD Work Phone: Start: 05-19-[address] Michael Snowden MD Work Phone: Start: 05-18-2024 X-ray of lumbar spin e, two or three views Dr. Michael Snowden MD Work Phone: Start: 05-12-[address] Michael Snowden MD Work Phone: Start: 04-16-2024 Anion gap measurement Alla Snowden MD Work Phone: Start: 04-16-2024 BUN/Creatinine ratio Dr Timur Snowden MD Work Phone: Start: 04-16-[address] Michael Snowden MD Work Phone: Start: 04-16-2024 Mean corpuscular hem oglobin concentration determination Dr. Michael Snowden MD Work Phone: Start: 04-16-2024 Measurement of renal function Dr. Michael Snowden MD Work Phone: Start: 04-16-2024 Platelet mean volume determination Dr. Michael Snowden MD Work Phone: Start: 04-14-2024 Local anesthetic lum bar epidural block Dr. Michael Snowden MD Work Phone: Start: 04-14-2024 Fluoroscopic guidance Alla Snowden MD Work Phone: Start: 04-14-2024 X-ray of lumbar spin e, two or three views Dr. Michael Snowden MD Work Phone: Start: 04-13-2024 MRI of lumbar spine Dr. Michael Snowden MD Work Phone: Start: 04-12-[address] Michael Snowden MD Work Phone: Start: 04-12-2024 Blood count smear rscp w/mnl difrntl wbc count Dr. Michael Snowden MD Work Phone: Start: 04-12-2024 Calculation of international normalized ratio Dr. Michael Snowden MD Work Phone: Start: 04-12-2024 Nucleated red blood cell count procedure Dr. Michael Snowden MD Work Phone: Start: 04-11-2024 X-ray of lumbar spin e, two or three views Dr. Michael Snowden MD Work Phone: Start: 03-30-2024 Plain x-ray of pelvi s and lower extremity Dr. Michael Snowden MD Work Phone: Start: 03-30-2024 X-ray of lumbar spin e, two or three views Dr. Michael Snowden MD Work Phone: Start: 08-05-[address] Michael Snowden Work Phone: Start: 07-16-[address] Michael guillen Work Phone: Start: 12-17-2016 End: 12-17-2016 *BMP Bret Daniels MD Start: 12-17-2016 End: 12-17-2016 Follow Up Appt 6 months Cole Salazar Start: 12-17-2016 End: 12-17-2016 JHR Bret Daniels MD Start: 06-11-2016 End: 06-11-2016 DOOR TRIMMER Ashley Ernst PA-C Work Phone: Start: 06-11-2016 End: 06-11-2016 Follow Up Appt 6 months Ashley waterman PA-C Work Phone: Start: 06-11-2016 End: 06-11-2016 Follow Up BP Check Ashley Ernst PA-C Work Phone: Start: 06-13-2015 End: 06-06-2016 Follow Up Appt 1 year Bret Daniels MD Start: 06-13-2015 End: 06-06-2016 KODAK Daniels MD Start: 03-08-2015 End: 03-08-2015 ZULEYKA Ernst PA-C Work Phone: Start: 03-08-2015 End: 03-08-2015 Follow Up Appt 3 months Ashley watreman PA-C Work Phone: Start: 08-05-2014 End: 08-06-2014 Documentation of current medications Bret Daniels MD Start: 08-05-2014 End: 08-05-2014 Follow Up Appt 6 months Cole Salazar Start: 08-05-2014 End: 08-05-2014 KODAK Daniels MD Start: 02-10-2014 End: 02-10-2014 UZLEYKA Ernst PA-C Work Phone: Start: 02-10-2014 End: 02-10-2014 Follow Up Appt 6 months Ashley waterman PA-C Work Phone: Start: 08-13-2013 End: 08-13-2013 Follow Up Appt 6 months Cole Salazar Start: 08-13-2013 End: 08-13-2013 KODAK Daniels MD Start: 02-08-2013 End: 02-08-2013 ZULEYKA Ernst PA-C Work Phone: Start: 02-08-2013 End: 02-08-2013 Follow Up Appt 6 months Ashley waterman PA-C Work Phone: Start: 08-13-2012 End: 02-01-2013 Follow Up Appt 6 months Cole Salazar Start: 08-13-2012 End: 02-01-2013 KODAK Daniels MD Start: 02-04-2012 End: 02-04-2012 Follow Up Appt 6 months Cole Salazar Start: 03-31-1950 H/O: surgery Tonsillectomy Noreen Fas t DO Work Phone: H/O: surgery Tonsillectomy Noreen A Fast D O Work Phone: Plan of Treatment Date Care Activity Detail Author Start: 02-24-2034 Urine microalbumin profile DTaP,Tdap,Td Vaccine (3 - Td or Tdap) [facility] Start: 07-22-2027 Diabetes Screening Diabetes Screenin g [facility] Start: 07-21-2025 BP Controlled (<130/80) BP Con trolled (<130/80) [facility] Start: 11-29-2024 Influenza vaccination Influenz a Vaccine (Season Ended) [facility] Start: 10-20-2024 End: 10-20-2024 Patient encounter procedure 10/20/2024 12:40 PM EDT Office Visit Endocrinology [address] [place] [id number] Kimmie Lindsey MD [id number] [id number] 3 month follow up Endocrinology Comment on above: 3 month follow up Start: 05-21-2024 Patient discharge [facility] Start: 05-20-2024 Development of care plan [facility] Start: 05-17-2024 Consultation for pain [facility] Start: 05-13-2024 Developing a treatme nt plan [facility] Start: 05-13-2024 Development of care plan [facility] Start: 05-07-2024 [facility] Start: 04-17-2024 Developing a treatme nt plan [facility] Start: 04-17-2024 Development of care plan [facility] Start: 04-16-2024 Admission procedure [facility] Start: 04-16-2024 Introduction of urin mee catheter [facility] Start: 04-16-2024 Measuring intake and output [facility] Start: 04-16-2024 Patient referral to dietitian [facility] Start: 04-16-2024 Referral to occupati onal therapist [facility] Start: 04-16-2024 Referral to service [facility] Start: 04-16-2024 Vital signs measurements [facility] Start: 04-16-2024 [facility] Start: 04-16-2024 Following clinical pathway protocol [facility] Start: 04-16-2024 Patient discharge [facility] Start: 04-16-2024 [facility] Start: 04-14-2024 Admission procedure [facility] Start: 04-11-2024 Application of intermittent pneumatic compression device [facility] Start: 04-11-2024 Following clinical pathway protocol [facility] Start: 04-11-2024 Assessment of risk o f venous thromboembolism [facility] Start: 04-11-2024 Consultation for pain [facility] Start: 04-11-2024 Inhalation therapy procedure [facility] Start: 04-11-2024 Insertion of cathete r into peripheral vein [facility] Start: 04-11-2024 Providing care accor ding to standard [facility] Start: 04-11-2024 Provision of activit y privileges [facility] Start: 04-11-2024 Referral to occupati onal therapist [facility] Start: 04-11-2024 Referral to service [facility] Start: 04-11-2024 [facility] Start: 04-11-2024 Admission procedure [facility] Start: 03-31-2024 Advance Directive Discussion Advance Directive Discussion [facility] Start: 03-31-2024 [facility] Start: 11-30-2023 Covid-19 Vaccine ( season) Covid-19 Vaccine ( season) [facility] Start: 11-30-2023 Influenza vaccination Influenza Vacc ine (#1) [facility] Start: 08-05-2022 Protein measurement [facility] Start: 2020 RSV Vaccine (1 - 1-d ose 75+ series) RSV Vaccine (1 - 1-dose 75+ series) [facility] Start: 06-16-2017 End: 06-16-2017 Appointment Appointment [facility] Work Phone: Start: 12-17-2016 End: 12-17-2016 *BMP *BMP [facility] Work Phone: Start: 12-17-2016 End: 12-17-2016 Follow Up Appt 6 months Follow Up Appt 6 months [facility] Work Phone: Start: 12-17-2016 End: 12-17-2016 JHR JHR [facility] Work Phone: Start: 12-17-2016 End: 12-17-2016 Remote 30 day ecg rev/report 30 Day Holter Monitor [facility] Work Phone: Start: 06-11-2016 End: 06-11-2016 DOOR TRIMMER DOOR TRIMMER [facility] Work Phone: Start: 06-11-2016 End: 06-11-2016 Follow Up Appt 6 months Follow Up Appt 6 months [facility] Work Phone: Start: 06-11-2016 End: 06-11-2016 Follow Up BP Check Follow Up BP Check [facility] Work Phone: Start: 06-13-2015 End: 06-06-2016 Follow Up Appt 1 year Follow Up Appt 1 year [facility] Work Phone: Start: 06-13-2015 End: 06-06-2016 MMM MMM [facility] Work Phone: Start: 03-08-2015 End: 03-08-2015 DOOR TRIMMER DOOR TRIMMER [facility] Work Phone: Start: 03-08-2015 End: 03-08-2015 Follow Up Appt 3 months Follow Up Appt 3 months [facility] Work Phone: Start: 08-05-2014 End: 08-05-2014 Follow Up Appt 6 months Follow Up Appt 6 months [facility] Work Phone: Start: 08-05-2014 End: 08-05-2014 MMM MMM [facility] Work Phone: Start: 02-10-2014 End: 02-10-2014 DOOR TRIMMER DOOR TRIMMER [facility] Work Phone: Start: 02-10-2014 End: 02-10-2014 Follow Up Appt 6 months Follow Up Appt 6 months [facility] Work Phone: Start: 08-13-2013 End: 08-13-2013 Follow Up Appt 6 months Follow Up Appt 6 months [facility] Work Phone: Start: 08-13-2013 End: 08-13-2013 MMM MMM [facility] Work Phone: Start: 02-08-2013 End: 02-08-2013 DOOR TRIMMER DOOR TRIMMER [facility] Work Phone: Start: 02-08-2013 End: 02-08-2013 Follow Up Appt 6 months Follow Up Appt 6 months [facility] Work Phone: Start: 08-13-2012 End: 02-01-2013 Follow Up Appt 6 months Follow Up Appt 6 months [facility] Work Phone: Start: 08-13-2012 End: 02-01-2013 MMM MMM [facility] Work Phone: Start: 02-04-2012 End: 02-04-2012 Follow Up Appt 6 months Follow Up Appt 6 months [facility] Work Phone: Start: 04-25-2011 Shingrix Vaccine (2 of 3) Shingrix Vaccine (2 of 3) [facility] Start: 03-19-2006 Provider Instruction s for Treatment FOLLOW UP IN 4 MONTHS [facility] Work Phone: Start: 10-27-1963 Annual PCP Team Linderman Machine Operator apurva Disease Visit Annual PCP Team Chronic Disease Visit [facility] Start: 10-27-1963 Anxiety Screening Anxiety Screening [facility] Start: 10-27-1963 BP Controlled (<130/80) BP Con trolled (<130/80) [facility] Start: 10-27-1963 Depression Screening Depression Scre ening [facility] CT Abdomen and Pelvi s W contrast IV [facility] Lactoferrin [Presenc e] in Stool by Immunoassay [facility] Patient Education [facility] Work Phone: Patient referral [facility] Work Phone: Protein measurement [facility] Immunizations Immunization Date Immunization Notes Care Provider Fa brijeshty 02-25-2024 tetanus toxoid, redu lalo diphtheria toxoid, and acellular pertussis vaccine, adsorbed Dr. Michael Snowden MD Work Phone: [facility] 05-13-2017 influenza virus vacc ine, unspecified formulation Jovanni Matthew MD Work Phone: [facility] 03-17-2015 pneumococcal conjuga te vaccine, 13 valent [facility] 12-24-2014 influenza, high dose seasonal, preservative-free Jovanni Matthew MD Work Phone: [facility] 01-11-2013 influenza virus vacc ine, unspecified formulation Jovanni Matthew MD Work Phone: [facility] 02-28-2011 zoster vaccine, live Jovanni crump MD Work Phone: [facility] Work Phone: 02-19-2011 influenza virus vacc ine, unspecified formulation Jovanni Matthew MD Work Phone: [facility] 02-19-2011 pneumococcal polysaccharide vaccine, 23 valent [facility] 09-21-2007 tetanus toxoid, redu lalo diphtheria toxoid, and acellular pertussis vaccine, adsorbed Jovanni Matthew MD Work Phone: [facility] Payers Date Payer Category Payer Self-pay [id number] 2018 Medicare (Managed Care) [place] [id number] 2013 Medicare [id number] Unknown Medical [facility] Unknown [id number] .840.1.097939.3.579. 2.462 Unknown [id number] 2.840.1.692288.3.579. 2.462 Unknown [id number] 2.840.1.950445.3.579. 2.462 Unknown [id number] 2.840.1.114142.3.579. 2.462 Unknown [id number] 2.840.1.050783.3.579. 2.462 Unknown [id number] 2.840.1.795483.3.579. 2.462 Unknown [id number] 2.840.1.306640.3.579. 2.462 Unknown [id number] 2.840.1.516786.3.579. 2.462 Unknown [id number] 2.16840.1.344431.3.579. 2.462 Unknown [id number] 2.840.1.402949.3.579. 2.462 Unknown [id number] 2.16840.1.385611.3.579. 2.462 Unknown [id number] 2.16840.1.605346.3.579. 2.462 Unknown [id number] 2.16840.1.293977.3.579. 2.462 Unknown [id number] 2.16.840.1.564085.3.579. 2.462 Unknown [id number] 2.16.840.1.931042.3.579. 2.462 Unknown [id number] 2.16.840.1.536828.3.579. 2.462 Unknown [id number] 2.16.840.1.567334.3.579. 2.462 Unknown [id number] 2.16.840.1.577269.3.579. 2.462 Unknown [id number] 2.16.840.1.930917.3.579. 2.462 Unknown [id number] 2.16.840.1.639856.3.579. 2.462 Unknown [id number] 2..840.1.764955.3.579. 2.462 Unknown [id number] 2.840.1.692040.3.579. 2.462 Unknown [id number] 2..840.1.563220.3.579. 2.462 Unknown [id number] 2.16.840.1.108110.3.579. 2.462 Unknown [id number] 2.16.840.1.390282.3.579. 2.462 Unknown [id number] 2.16.840.1.772245.3.579. 2.462 Unknown [id number] 2..840.1.399152.3.579. 2.462 Unknown [id number] 2.16.840.1.519736.3.579. 2.462 Unknown [id number] 2.16.840.1.294126.3.579. 2.462 Unknown [id number] 2.16.840.1.831282.3.579. 2.462 Unknown [id number] 2.16.840.1.991157.3.579. 2.462 Unknown [id number] 2.16.840.1.057790.3.579. 2.462 Unknown [id number] 2.16.840.1.135285.3.579. 2.462 Unknown [id number] 2.16.840.1.402714.3.579. 2.462 Unknown [id number] 2.16.840.1.031008.3.579. 2.462 Unknown [id number] 2.16.840.1.658410.3.579. 2.462 Unknown [id number] 2.16.840.1.838935.3.579. 2.462 Unknown [id number] 2.16.840.1.850025.3.579. 2.462 Unknown [id number] 2.16.840.1.752685.3.579. 2.462 Unknown [id number] 2.16.840.1.163409.3.579. 2.462 Unknown [id number] 2.16.840.1.647758.3.579. 2.462 Unknown [id number] 2.16.840.1.465531.3.579. 2.462 Unknown [id number] 2.16.840.1.648813.3.579. 2.462 Social History Date Type Detail Facility Start: 04-10-2021 End: 05-09-2023 Tobacco smoking status NHIS Unknown if ever smoked [facility] Start: 09-21-2020 None [facility] Start: 09-21-2020 Homeless [facility] Start: 09-21-2020 Non-smoker [facility] Start: 1945 Sex Assigned At Female W [facility] Start: 07-21-2024 End: 08-13-2024 Alcohol Use Alcohol Use [facility]; [facility] Work Phone: Comment on above: Occasional alcohol u se tea once iin awhile Start: 04-16-2024 End: 07-21-2024 Tobacco smoking status NHIS Never smoked tobacco (finding) [facility] Start: 07-01-2024 End: 07-15-2024 Sex Female (finding) [facility] Start: 07-21-2024 Tobacco use and exposure Smokeless tobacco non-user [facility] Start: 07-21-2024 End: 08-13-2024 Alcoholic beverage intake Current drinker of alcohol (finding) [facility] Start: 07-21-2024 End: 08-13-2024 Tobacco use panel [facility] National Score (1-100), lower number is lower risk 75 [facility] Start: 07-21-2024 Tobacco Comment Mother smoked in childhood home. ETS exposure in a restaurant. [facility] Start: 02-19-2012 Alcohol Comment holidays [facility] Start: 1945 Sex assigned at Not on file [facility] NEGATED: Highlighted row Not [facility] Goals Date Patient Goal Desired Activity /State Functional Status Date Assessment Result Facility 05-21-2024 Functional status Ambulates [facility] Work Phone: 04-16-2024 Functional status Ambulates [facility] Work Phone: 11-03-2014 Are you deaf, or do you have serious difficulty hearing No 11/03/2014 11:42 AM Dalila Nielsen RN No [facility] 11-03-2014 Are you blind, or do you have serious difficulty seeing, even when wearing glasses No 11/03/2014 11:42 AM Dalila Nielsen RN No [facility] 11-03-2014 Do you have serious difficulty walking or climbing stairs Yes 11/03/2014 11:42 AM Dalila Nielsen RN Yes [facility] 11-03-2014 Do you have difficul ty dressing or bathing No 11/03/2014 11:42 AM Dalila Nielsen RN No [facility] 11-03-2014 Because of a physica l, mental, or emotional condition, do you have difficulty doing errands alone such as visiting a physician's office or shopping Yes 11/03/2014 11:42 AM Dalila Nielsen RN Yes [facility] Mental Status Date Assessment Result Facility 05-21-2024 Cognitive function Voice/Name [facility] Work Phone: 05-17-2024 Cognitive function Appropriate;C ooperativ e [facility] Work Phone: 04-16-2024 Cognitive function Voice/Name [facility] Work Phone: 11-03-2014 Because of a physica l, mental, or emotional condition, do you have serious difficulty concentrating, remembering, or making decisions Yes 11/03/2014 11:42 AM EDT Dalila Arevalo RN Yes [facility] Clinical Notes 06-14-2022 to 08-22-2024 Telephone Encounter - Mary Borden - 08/22/2024 9:59 AM EDTTelephone Encounter - Mary Borden - 08/22/2024 9:59 AM Seth Alfonso MD - 08/13/2024 7:55 AM EDTPatient Instructions Note Date & Type Note Facility 08-22-2024 Telephone encounter Note Images from the original note were not included. Dear Provider, Your patient's medication Evenity 210 mg was denied. Denial letters are sent directly to the patient and at times to the healthcare providers. If we receive a denial letter, it will be indexed for your review. If you want to appeal the decision. Please submit your request via staff message to the Jorje Chandra Auth Appeals Pool ([id number]). You can find templates listed below to support your appeal in [facility] (Epic drop down, select patient care, select send letter). If it is an urgent request, you can email the GABY Chandra auth Team at . Please make sure the documents below are completed in order to process your request. If the appeal is denied, do you want to schedule a peer to peer Yes/No. We will schedule peer to peer automatically if yes. Thank You, Jorje Chandra Auth Appeals Team Jorje GRIFFIN Appeal letter Jorje GRIFFIN Letter of Medical Necessity Jorje Hernandez Prior Computer Forensics Investigator III Endocrinology & Metabolism [place] Letter scanned into chart [facility] 08-22-2024 Miscellaneous Notes Images from the original note were not included. Dear Provider, Your patient's medication Evenity 210 mg was denied. Denial letters are sent directly to the patient and at times to the healthcare providers. If we receive a denial letter, it will be indexed for your review. If you want to appeal the decision. Please submit your request via staff message to the [employer] Auth Appeals Pool ([id number]). You can find templates listed below to support your appeal in [facility] (Epic drop down, select patient care, select send letter). If it is an urgent request, you can email the GABY Chandra auth Team at . Please make sure the documents below are completed in order to process your request. If the appeal is denied, do you want to schedule a peer to peer Yes/No. We will schedule peer to peer automatically if yes. Thank You, Jorje Prior Auth Appeals Team Jorje PA Appeal letter Jorje GRIFFIN Letter of Medical Necessity J[facility]je GRIFFIN [facility] Prior Computer Forensics Investigator III Endocrinology & Metabolism [place] Letter scanned into chart documented in this encounter [facility] 08-13-2024 Note HNO ID: [id number] Author: SETH CHOWDARY MD Service: ? Author Type: Physician Type: Progress Notes Filed: 08/13/2024 08:45 Note Text: SPINE SURGERY OUTPATIENT CONSULT This is an in-person visit. SERVICE DATE: 08/13/2024 PCP: Michael Snowden MD REFERRING PROVIDER: Jovanni Matthew [address] [facility] [id number] Lizette Davies is a 78 year old female presenting sibling. CHIEF COMPLAINT: Back and leg pain pain HISTORY OF PRESENT ILLNESS 78-year-old female with a history of sarcoidosis presenting with worsening back pain. She is accompanied by her two sisters, who provide additional history. Chaparrita reports a longstanding history of back pain, which significantly worsened around March of this year. She also experiences neck pain, though it is less severe than the back pain. She has been diagnosed with sarcoidosis identified after a lung biopsy. She does not complain of shortness of breath or other symptoms related to sarcoidosis. She reports numbness in her legs, feet, and hands, and experiences pain in her right leg, with less severe pain in the left leg. She does not endorse arm pain. She is able to walk with a walker but has not walked recently and currently resides in a fdc facility. She does not report bowel or bladder dysfunction, though she occasionally experiences constipation due to oxycodone use. In March, she was hospitalized for six weeks due to back pain and received an epidural injection, which provided relief for 6-8 weeks. She is currently managing her pain with a lidocaine patch, oxycodone 3-4 times daily, Tylenol every six hours, and baclofen. She rates her current pain as 5/10, increasing to 7/10 with movement and occasionally reaching 10/10. She has not tried gabapentin or Lyrica. She has a history of osteopenia, identified on a DEXA scan, and is not currently on medication for this condition. She also has a heart murmur but does not have diabetes or other lung diseases. PREVIOUS CONSERVATIVE TREATMENTS: -Lidocaine TD -Oxycodone 5mg IR q4 hr prn (3-4/day) -Tylenol 500 q 6hrs -Baclofen PREVIOUS SPINAL SURGERY: None REVIEW OF SYSTEMS: Neck: (+) neck pain, (-) arm pain Respiratory: (-) shortness of breath Gastrointestinal: (-) bowel dysfunction Genitourinary: (-) bladder dysfunction Musculoskeletal: (+) back pain, (+) right leg pain Neurological: (+) bilateral hand numbness, (+) bilateral foot numbness, (+) difficulty walking ACTIVE PROBLEM LIST Essential Hypertension Malaise and Fatigue Internal Hemorrhoids Without Mention of Complication Hemorrhage of Gastrointestinal Tract, Unspecified Myalgia and Myositis, Unspecified Congenital Pes Planus Tibialis Tendinitis Generalized Osteoarthrosis, Unspecified Site Contact Dermatitis and Other Eczema, Due to Unspecified Cause Low Back Pain Numbness and Tingling in Hands Spinal Cord Lesion (Hcc) Neck Pain Gait Instability Myelopathy (Hcc) Closed Spondylolysis Fracture of Lumbar Vertebra Spondylolisthesis, Grade 3 Abnormality of Gait Muscle Weakness (Generalized) Angioedema Special Screening for Malignant Neoplasms, Colon Gastroparesis Ischial Bursitis of Right Side Sarcoidosis Balance Problem Chronic Cholecystitis With Calculus Chronic Right-Sided Low Back Pain With Right-Sided Sciatica Sacroiliac Pain PAST MEDICAL HISTORY Diagnosis Date Blood type O+ Compression fracture of thoracic vertebra (HCC) DDD (degenerative disc disease), cervical MRI scanned into Epic January 11, 2014 ([facility]) DDD (degenerative disc disease), lumbosacral Essential hypertension, benign Dr. Daniels Gastroparesis Mild to moderate--test done 09/2014 Generalized OA Heart attack (HCC) Hemorrhage of gastrointestinal tract 01/2015 EGD huge ulcer 01/2015 all cleared 03/2015, Edis Angeles MD Hemorrhage of gastrointestinal tract, unspecified 03/08/2005 Internal hemorrhoids without mention of complication 03/08/2005 Morbid obesity with BMI of 40.0-44.9, adult (HCC) Sarcoidosis SCC (squamous cell carcinoma), leg 09/28/[address] Joe Dhillon on left goodwin Snoring Unspecified constipation 03/08/2005 PAST SURGICAL HISTORY Procedure Laterality Date ARTHRP KNE CONDYLEANDPLATU MEDIALANDLAT COMPARTMENTS 11/05/2004 Knee replacement, total left ARTHRP KNE CONDYLEANDPLATU MEDIALANDLAT COMPARTMENTS 07/2010 right knee COLONOSCOPY FLX DX W/COLLJ SPEC WHEN PFRMD 11/24/2000 Colonoscopy COLONOSCOPY FLX DX W/COLLJ SPEC WHEN PFRMD 10/06/2014 Colonoscopy ESOPHAGOGASTRODUODENOSCOPY TRANSORAL DIAGNOSTIC 12/31/13 EGD ESOPHAGOGASTRODUODENOSCOPY TRANSORAL DIAGNOSTIC 02/16/15 EGD [facility] inpt ESOPHAGOGASTRODUODENOSCOPY TRANSORAL DIAGNOSTIC 05/11/15 EGD EXTRACTION, ERUPTED TOOTH OR EXPOSED ROOT (ELEVATION AND/OR FORCEPS REMOVAL) [place] teeth FOOT RIGHT OP SURGERY 01/2009 PAST SURGICAL HISTORY OF 1996 Bone fusion 1st MT and pin right foot PAST S (more content not included)... [facility] 08-13-2024 History of Presen t illness Narrative SPINE SURGERY OUTPATIENT CONSULT This is an in-person visit. SERVICE DATE: 08/13/2024 PCP: Michael Snowden MD REFERRING PROVIDER: Jovanni Matthew [id number] [facility] [id number] Lizette Davies is a 78 year old female presenting sibling. CHIEF COMPLAINT: Back and leg pain pain HISTORY OF PRESENT ILLNESS 78-year-old female with a history of sarcoidosis presenting with worsening back pain. She is accompanied by her two sisters, who provide additional history. Chaparrita reports a longstanding history of back pain, which significantly worsened around March of this year. She also experiences neck pain, though it is less severe than the back pain. She has been diagnosed with sarcoidosis identified after a lung biopsy. She does not complain of shortness of breath or other symptoms related to sarcoidosis. She reports numbness in her legs, feet, and hands, and experiences pain in her right leg, with less severe pain in the left leg. She does not endorse arm pain. She is able to walk with a walker but has not walked recently and currently resides in a fdc facility. She does not report bowel or bladder dysfunction, though she occasionally experiences constipation due to oxycodone use. In March, she was hospitalized for six weeks due to back pain and received an epidural injection, which provided relief for 6-8 weeks. She is currently managing her pain with a lidocaine patch, oxycodone 3-4 times daily, Tylenol every six hours, and baclofen. She rates her current pain as 5/10, increasing to 7/10 with movement and occasionally reaching 10/10. She has not tried gabapentin or Lyrica. She has a history of osteopenia, identified on a DEXA scan, and is not currently on medication for this condition. She also has a heart murmur but does not have diabetes or other lung diseases. PREVIOUS CONSERVATIVE TREATMENTS: -Lidocaine TD -Oxycodone 5mg IR q4 hr prn (3-4/day) -Tylenol 500 q 6hrs -Baclofen PREVIOUS SPINAL SURGERY: None REVIEW OF SYSTEMS: Neck: (+) neck pain, (-) arm pain Respiratory: (-) shortness of breath Gastrointestinal: (-) bowel dysfunction Genitourinary: (-) bladder dysfunction Musculoskeletal: (+) back pain, (+) right leg pain Neurological: (+) bilateral hand numbness, (+) bilateral foot numbness, (+) difficulty walking ACTIVE PROBLEM LIST Essential Hypertension Malaise and Fatigue Internal Hemorrhoids Without Mention of Complication Hemorrhage of Gastrointestinal Tract, Unspecified Myalgia and Myositis, Unspecified Congenital Pes Planus Tibialis Tendinitis Generalized Osteoarthrosis, Unspecified Site Contact Dermatitis and Other Eczema, Due to Unspecified Cause Low Back Pain Numbness and Tingling in Hands Spinal Cord Lesion (Hcc) Neck Pain Gait Instability Myelopathy (Hcc) Closed Spondylolysis Fracture of Lumbar Vertebra Spondylolisthesis, Grade 3 Abnormality of Gait Muscle Weakness (Generalized) Angioedema Special Screening for Malignant Neoplasms, Colon Gastroparesis Ischial Bursitis of Right Side Sarcoidosis Balance Problem Chronic Cholecystitis With Calculus Chronic Right-Sided Low Back Pain With Right-Sided Sciatica Sacroiliac Pain PAST MEDICAL HISTORY Diagnosis Date Blood type O+ Compression fracture of thoracic vertebra (HCC) DDD (degenerative disc disease), cervical MRI scanned into [facility] January 11, 2014 ([facility]) DDD (degenerative disc disease), lumbosacral Essential hypertension, benign Dr. Daniels Gastroparesis Mild to moderate--test done 09/2014 Generalized OA Heart attack (HCC) Hemorrhage of gastrointestinal tract 01/2015 EGD huge ulcer 01/2015 all cleared 03/2015, Edis Angeles MD Hemorrhage of gastrointestinal tract, unspecified 03/08/2005 Internal hemorrhoids without mention of complication 03/08/2005 Morbid obesity with BMI of 40.0-44.9, adult (HCC) Sarcoidosis SCC (squamous cell carcinoma), leg 09/28/[address] Joe Dhillon on left goodwin Snoring Unspecified constipation 03/08/2005 PAST SURGICAL HISTORY Procedure Laterality Date ARTHRP KNE CONDYLE&PLATU MEDIAL&LAT COMPARTMENTS 11/05/2004 Knee replacement, total left ARTHRP KNE CONDYLE&PLATU MEDIAL&LAT COMPARTMENTS 07/2010 right knee COLONOSCOPY FLX DX W/COLLJ SPEC WHEN PFRMD 11/24/2000 Colonoscopy COLONOSCOPY FLX DX W/COLLJ SPEC WHEN PFRMD 10/06/2014 Colonoscopy ESOPHAGOGASTRODUODENOSCOPY TRANSORAL DIAGNOSTIC 12/31/13 EGD ESOPHAGOGASTRODUODENOSCOPY TRANSORAL DIAGNOSTIC 02/16/15 EGD [facility] inpt ESOPHAGOGASTRODUODENOSCOPY TRANSORAL DIAGNOSTIC 05/11/15 EGD EXTRACTION, ERUPTED TOOTH OR EXPOSED ROOT (ELEVATION AND/OR FORCEPS REMOVAL) 1969's [place] teeth FOOT RIGHT OP SURGERY 01/2009 PAST SURGICAL HISTORY OF 1995 Bone fusion 1st MT and pin right foot PAST SURGICAL HISTORY OF 01/2013 left carpal tunnel surgery PAST SURGICAL HISTORY OF right Lasik 2001 PAST SURGICAL HISTORY OF 09/13 Skin Ca from Lt goodwin TONSILLECTOMY PRIMARY/SECONDARY <AGE 12 Tonsillectomy FAMILY HISTORY Problem Relation Age of Onset Hypertension Father of ruptured aortic an. Cataract Father Hypertension Mother Asthma Mother In youth. Cataract Mother Diabetes Sister Social History Tobacco Use Smoking status: Never Smokeless tobacco: Never Tobacco comments: Mother smoked in childhood home. ETS exposure in a restaurant. Substance Use Topics Alcohol use: Yes Comment: Holidays. Drug use: No ALLERGIES Allergen Reactions Lisinopril Swelling, Anaphylaxis Face, mouth, and tongue. Alendronate Sodium GI Upset Cardura [Doxazosin] Other: See Comments Codeine Intolerance Headache Fosamax [Alendronat* Other: See Comments GI upset Hydrochlorothiazide Other: See Comments Ibuprofen GI Upset Epigastric pain. In higher dose. Lipitor [Atorvastat* Intolerance complained of weakness of legs Nifedipine Other: See Comments MEDICATIONS: romosozumab-aqqg (EVENITY) 105 mg/1.17 mL syrg syringe Inject 2 syringes subcutaneously once every month. amLODIPine (NORVASC) 2.5 mg tablet Take 2.5 mg by mouth two times a day. VITAMIN B COMPLEX ORAL once daily. baclofen 5 mg tablet Take 5 mg by mouth three times a day. cholecalciferol (VITAMIN D) 1,000 unit tab tablet Take 1,000 Units by mouth once daily. cyanocobalamin (VITAMIN B-12) 1,000 mcg tab Take 1,000 mcg by mouth once daily. folic acid 1 mg tablet Take 1 mg by mouth once daily. magnesium chloride [address] tablet Take 64 mg by mouth once daily. MAGNESIUM CITRATE ORAL Take 300 mL by mouth as needed. oxyCODONE ir (OXYIR) 5 mg capsule Take 5 mg by mouth every 4 hours as needed for pain. lidocaine-menthol 4-4 % ptmd Apply to affected area. on in am and off @ HS senna-docusate (SENNA PLUS) 8.6-50 mg per tablet Take 1 tablet by mouth once daily. citalopram hydrobromide (CELEXA) 10 mg tablet Take by mouth once daily. ondansetron (ZOFRAN) 4 mg tablet Take by mouth every 4 hours as needed for nausea/vomiting. 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 Dx: Bilat sprained ankles, gait instability. acetaminophen (TYLENOL EXTRA STRENGTH) 500 mg tablet Take 1 tablet by mouth every 6 hours as needed for Pain. metoprolol succinate ER (TOPROL XL) 25 mg 24 hr tablet Take 1 tablet by mouth twice daily. (prescribed by Dr. Daniels) (Patient taking differently: Take 25 mg by mouth two times a day. 12.5mg 2 times per day) Cholecalciferol, Vitamin D3, (VITAMIN D-3) 5,000 unit tab Take 5,000 Units by mouth once daily. (Patient not taking: Reported on 07/21/2024) COMPOUNDED PRESCRIPTION Viki santana 17 drops daily and working up to 60 drops daily (in divided doses). Serving size 30 drops. Mineral water and ethanol 20-24%) (Patient not taking: Reported on 07/21/2024) OTC NUTRITIONAL SUPPLEMENT zypan supplement (Patient not taking: Reported on 07/21/2024) Magnesium 250 mg tab Take 1,000 mg by mouth. (Patient not taking: Reported on 07/21/2024) MULTIVITAMIN TAB Take one(1) tablet daily. (Patient not taking: Reported on 07/21/2024) Patient Entered Questionnaires PROMIS Score Percentiles 06/12/2016 06/14/2016 11/01/2016 PROMIS Global Health Scale Physical Health Percentile 7 22* 10 Mental Health Percentile 13 9 26* Percentiles provide an indication of how the patient's score ranks in relation to the general population. Higher percentile rankings indicate better function/quality of life. 50th percentile is the average of the general population and indicates half of respondents had a worse score. Depression Screenin12/09/2014 02/20/2015 07/27/2015 PHQ-9 Score 5 7 5 12/09/2014 02/20/2015 07/27/2015 PHQ-9 Self-harm Question Question 9 Not at all Not at all Not at all PHQ-9 Self-Harm (Item 9) response options: 0 Not at all 1 Several days 2 More than half the days 3 Nearly every day PHQ-9 Levels: 0-4 No to mild depression 5-9 Mild depression 10-14 Moderate depression 15-19 Moderately severe depression 20-27 Severe depression OBJECTIVE: PHYSICAL EXAM BP 148/103 Pulse 98 Resp 18 Ht 147.3 cm (4' 10) Wt 68 kg (149 lb 14.6 oz) BMI 31.33 kg/m GENERAL APPEARANCE: Well nourished, well developed, and no apparent distress. NEURO PSYCH: Patient oriented to person, place, and time. Mood pleasant. Benign affect. MUSCULOSKELETAL VISUAL INSPECTION CERVICAL: WNL THORACIC: WNL LUMBAR: WNL MOTOR: 5/5 in all muscle groups. GAIT: In WC, unable to ambulate IMAGING Lumbar MRI 04/13/24: Grad II listhesis at L5-S1 with bilateral L5 foraminal stenosis. L1 compression fracture. DEXA: osteopenia ASSESSMENT/PLAN (M43.10) Acquired spondylolisthesis (primary encounter diagnosis) (M47.812) Cervical spondylosis without myelopathy (M48.061) Neural foraminal stenosis of lumbar spine (S32.010A) Closed compression fracture of body of L1 vertebra (HCC) Lizette Davies is not a candidate for surgery at this time and will continue with medical management of his/her condition. Discussed surgical intervention; however, due to patient's comorbidities, including sarcoidosis and osteopenia, the risks of surgery are substantial, with potential complications such as infection, spinal fluid leakage, increased pain, and systemic risks (UTI, pneumonia, DVT, PE) estimated at 30-40%. - Advised against surgical intervention at this time due to high risk of complications and potential for hardware failure due to weak bone structure. - Previous epidural provided relief for 6-8 weeks; recommended continuation of epidural steroid injections as a non-surgical management option. - Patient to follow-up with pain management on the to discuss further epidural treatments. Imaging shows compression fracture at L1; however, pain is primarily lower back and leg, likely due to spondylolisthesis. - No specific treatment for the compression fracture at this time; focus on managing spondylolisthesis and neural foraminal stenosis. RTC prn SIGNATURE: Seth Chowdary MD PATIENT NAME: Lizette Davies DATE: August 13, 2024 TIME: 7:55 AM PAGER: documented in this encounter [facility] 07-21-2024 Note HNO ID: [id number] Author: MILLIE PETTY MD Service: ? Author Type: Fellow Type: Progress Notes Filed: 07/21/2024 18:00 Note Text: REASON OF VISIT: Compression fracture. REFERRING PHYSICIAN: Michael Snowden MD Consultation requested by Dr. Snowden for an opinion regarding osteoporosis. My final recommendations will be communicated back to the requesting physician by way of shared Medical record or letter to requesting physician via US mail. HISTORY OF PRESENT ILLNESS: Age: [id number] year old with PMH of HTN, sarcoidosis she has back pain started in 04/14/2024, she started on Oxycodone since that time, she had compression fracture, she had epidural injection, then she was able to walk with walker, then the effect of the injection started to wean off. For the last 3 weeks she has sever back pain. She had right ankle fracture. No HX of kidney stone. She is using Vitamin D 5000 international unit(s) daily. REVIEW OF SYSTEMS: Review of Systems Constitutional: Positive for malaise/fatigue. Negative for weight loss. HENT: Negative for congestion, ear discharge, ear pain, nosebleeds and sinus pain. Respiratory: Negative for cough, hemoptysis, sputum production and shortness of breath. Cardiovascular: Negative for chest pain, palpitations, orthopnea, claudication and leg swelling. Gastrointestinal: Negative for abdominal pain, constipation, diarrhea, nausea and vomiting. Genitourinary: Negative for frequency, hematuria and urgency. Musculoskeletal: Positive for back pain and joint pain. Neurological: Negative for tingling, tremors, sensory change and speech change. MEDICATIONS: Current Outpatient Medications on File Prior to Visit Medication Sig amLODIPine (NORVASC) 2.5 mg tablet Take 2.5 mg by mouth two times a day. VITAMIN B COMPLEX ORAL once daily. baclofen 5 mg tablet Take 5 mg by mouth three times a day. cholecalciferol (VITAMIN D) 1,000 unit tab tablet Take 1,000 Units by mouth once daily. cyanocobalamin (VITAMIN B-12) 1,000 mcg tab Take 1,000 mcg by mouth once daily. folic acid 1 mg tablet Take 1 mg by mouth once daily. magnesium chloride [address] tablet Take 64 mg by mouth once daily. MAGNESIUM CITRATE ORAL Take 300 mL by mouth as needed. oxyCODONE ir (OXYIR) 5 mg capsule Take 5 mg by mouth every 4 hours as needed for pain. lidocaine-menthol 4-4 % ptmd Apply to affected area. on in am and off @ HS senna-docusate (SENNA PLUS) 8.6-50 mg per tablet Take 1 tablet by mouth once daily. citalopram hydrobromide (CELEXA) 10 mg tablet Take by mouth once daily. ondansetron (ZOFRAN) 4 mg tablet Take by mouth every 4 hours as needed for nausea/vomiting. metoprolol succinate ER (TOPROL XL) 25 mg 24 hr tablet Take 1 tablet by mouth twice daily. (prescribed by Dr. Daniels) (Patient taking differently: Take 25 mg by mouth two times a day. 12.5mg 2 times per day) Cholecalciferol, Vitamin D3, (VITAMIN D-3) 5,000 unit tab Take 5,000 Units by mouth once daily. (Patient not taking: Reported on 07/21/2024) COMPOUNDED PRESCRIPTION Viki kneny defense 17 drops daily and working up to 60 drops daily (in divided doses). Serving size 30 drops. 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 Dx: Bilat sprained ankles, gait instability. acetaminophen (TYLENOL EXTRA STRENGTH) 500 mg tablet Take 1 tablet by mouth every 6 hours as needed for Pain. Magnesium 250 mg tab Take 1,000 mg by mouth. (Patient not taking: Reported on 07/21/2024) MULTIVITAMIN TAB Take one(1) tablet daily. (Patient not taking: Reported on 07/21/2024) No current facility-administered medications on file prior to visit. SIGNIFICANT PAST MEDICAL AND SURGICAL HISTORY: PAST MEDICAL HISTORY Diagnosis Date Blood type O+ Compression fracture of thoracic vertebra (HCC) DDD (degenerative disc disease), cervical MRI scanned into [facility] January 11, 2014 ([facility]) DDD (degenerative disc disease), lumbosacral Essential hypertension, benign Dr. Daniels Gastroparesis Mild to moderate--test done 09/2014 Generalized OA Heart attack (HCC) Hemorrhage of gastrointestinal tract 01/2015 EGD huge ulcer 01/2015 all cleared 03/2015, Edis Angeles MD Hemorrhage of gastrointestinal tract, unspecified 03/08/2005 Internal hemorrhoids without mention of complication 03/08/2005 Morbid obesity with BMI of 40.0-44.9, adult (HCC) Sarcoidosis SCC (squamous cell carcinoma), leg 09/28/[address] Joe Dhillon on left goodwin Snoring Unspecified constipation 03/08/2005 PAST SURGICAL HISTORY Procedure Laterality Date ARTHRP KNE CONDYLEANDPLATU MEDIALANDLAT COMPARTMENTS 11/05/2004 Knee replacement, total left ARTHRP KNE CONDYLEANDPLATU MEDIALANDLAT COMPARTMENTS 07/2010 right knee COLONOSCOPY FLX DX W/COLLJ SPEC WHEN PFRMD 11/24/2000 Co (more content not included)... [facility] 07-21-2024 Instructions Jovanni Matthew MD - 07/21/2024 1:43 PM EDT Bring records including bone density testing to appointments with metabolic bone and spine surgeon Pain medication per pain management documented in this encounter [facility] 07-21-2024 Note HNO ID: [id number] Author: MILLY SINGH RN Service: ? Author Type: Registered Nurse Type: Progress Notes Filed: 07/21/2024 14:05 Note Text: Patient presents with chief complaints of back pain. Any new or significant change in pain? severe since beginning of this year Worst level of pain, 1-10, with 1 being mild discomfort is 10 PAIN INCREASED BY: NONE and OTHER moving PAIN DECREASED BY: MEDICATION THERAPEUTIC INTERVENTIONS: PHYSICAL THERAPY LAND, INJECTIONS, CHIROPRACTIC TREATMENT, and MEDICATION The following tests/records were reviewed: CD, reports Milly Singh RN [facility] 07-21-2024 History of Presen t illness Narrative Patient presents with chief complaints of back pain. Any new or significant change in pain? severe since beginning of this year Worst level of pain, 1-10, with 1 being mild discomfort is 10 PAIN INCREASED BY: NONE and OTHER moving PAIN DECREASED BY: MEDICATION THERAPEUTIC INTERVENTIONS: PHYSICAL THERAPY LAND, INJECTIONS, CHIROPRACTIC TREATMENT, and MEDICATION The following tests/records were reviewed: CD, reports Milly Singh RN Physical Medicine and Rehabilitation New patient July 21, 2024 SUBJECTIVE HISTORY OF PRESENT ILLNESS: Lizette Davies is a 78 year old woman evaluated for back pain and concerns if needs for spine fusion/decompression Chronic back pain but right before Thanksgiving fell with worsening LBP. With eventual went to ER- there given morphine and did help but then Mele admitted for ongoing pain- was then d/lalo to SNF Given ? MARCELL 04/14/24 Then had f/u with pain management last 07/06/24- rec for [facility] spine surgery eval, but on my schedule On review of imaging with : L5S1 gr3 listhesis 03/2024 On review from 2013 lumbar xr was gr 2 By 11/13/23- this was worsened to gr 3 In transitional care- ECF - PT stopped at [facility]. Can walk some with walker- about 30 ' SBA ? Leg weakness N/T- baseline- feet and hands Legs- in knees down B/B cruz - feels but has urine incontinence Bowel cruz continent Pain -11/07 LS jxn upper buttock and achy On lidocaine TD, oxy 5mg IR q4h prn - typically 3-4 tabs a day, tylenol 500mg q6 hr prn, baclofen 5mg tid No AEDs/SNRIs for pain control Celexa- on MAY but she is not sure she is taking. Worse with walking Better with sitting, pain medication Patient Entered Questionnaires PROMIS Score Percentiles 06/12/2016 06/14/2016 11/01/2016 PROMIS Global Health Scale Physical Health Percentile 7 22* 10 Mental Health Percentile 13 9 26* Percentiles provide an indication of how the patient's score ranks in relation to the general population. Higher percentile rankings indicate better function/quality of life. 50th percentile is the average of the general population and indicates half of respondents had a worse score. Depression Screenin12/09/2014 02/20/2015 07/27/2015 PHQ-9 Score 5 7 5 12/09/2014 02/20/2015 07/27/2015 PHQ-9 Self-harm Question Question 9 Not at all Not at all Not at all PHQ-9 Self-Harm (Item 9) response options: 0 Not at all 1 Several days 2 More than half the days 3 Nearly every day PHQ-9 Levels: 0-4 No - mild depression 5-9 Mild depression 10-14 Moderate depression 15-19 Moderately severe depression 20-27 Severe depression ACTIVE PROBLEM LIST Essential Hypertension Malaise and Fatigue Internal Hemorrhoids Without Mention of Complication Hemorrhage of Gastrointestinal Tract, Unspecified Myalgia and Myositis, Unspecified Congenital Pes Planus Tibialis Tendinitis Generalized Osteoarthrosis, Unspecified Site Contact Dermatitis and Other Eczema, Due to Unspecified Cause Low Back Pain Numbness and Tingling in Hands Spinal Cord Lesion (Hcc) Neck Pain Gait Instability Myelopathy (Hcc) Closed Spondylolysis Fracture of Lumbar Vertebra Spondylolisthesis, Grade 3 Abnormality of Gait Muscle Weakness (Generalized) Angioedema Special Screening for Malignant Neoplasms, Colon Gastroparesis Ischial Bursitis of Right Side Sarcoidosis Balance Problem Chronic Cholecystitis With Calculus Chronic Right-Sided Low Back Pain With Right-Sided Sciatica Sacroiliac Pain PAST MEDICAL HISTORY Diagnosis Date Blood type O+ Compression fracture of thoracic vertebra (HCC) DDD (degenerative disc disease), cervical MRI scanned into [facility] January 11, 2014 ([facility]) DDD (degenerative disc disease), lumbosacral Essential hypertension, benign Dr. Daniels Gastroparesis Mild to moderate--test done 09/2014 Generalized OA Heart attack (HCC) Hemorrhage of gastrointestinal tract 01/2015 EGD huge ulcer 01/2015 all cleared 03/2015, Edis Angeles MD Hemorrhage of gastrointestinal tract, unspecified 03/08/2005 Internal hemorrhoids without mention of complication 03/08/2005 Morbid obesity with BMI of 40.0-44.9, adult (HCC) Sarcoidosis SCC (squamous cell carcinoma), leg 09/28/[address] Joe Dhillon on left goodwin Snoring Unspecified constipation 03/08/2005 PAST SURGICAL HISTORY Procedure Laterality Date ARTHRP KNE CONDYLE&PLATU MEDIAL&LAT COMPARTMENTS 11/05/2004 Knee replacement, total left ARTHRP KNE CONDYLE&PLATU MEDIAL&LAT COMPARTMENTS 07/2010 right knee COLONOSCOPY FLX DX W/COLLJ SPEC WHEN PFRMD 11/24/2000 Colonoscopy COLONOSCOPY FLX DX W/COLLJ SPEC WHEN PFRMD 10/06/2014 Colonoscopy ESOPHAGOGASTRODUODENOSCOPY TRANSORAL DIAGNOSTIC 12/31/13 EGD ESOPHAGOGASTRODUODENOSCOPY TRANSORAL DIAGNOSTIC 02/16/15 EGD [facility] inpt ESOPHAGOGASTRODUODENOSCOPY TRANSORAL DIAGNOSTIC 05/11/15 EGD EXTRACTION, ERUPTED TOOTH OR EXPOSED ROOT (ELEVATION AND/OR FORCEPS REMOVAL) 1969's [place] teeth FOOT RIGHT OP SURGERY 01/2009 PAST SURGICAL HISTORY OF 1996 Bone fusion 1st MT and pin right foot PAST SURGICAL HISTORY OF 01/2013 left carpal tunnel surgery PAST SURGICAL HISTORY OF right Lasik 2001 PAST SURGICAL HISTORY OF 09/13 Skin Ca from Lt goodwin TONSILLECTOMY PRIMARY/SECONDARY <AGE 12 Tonsillectomy Social History Tobacco Use Smoking status: Never Smokeless tobacco: Never Tobacco comments: Mother smoked in childhood home. ETS exposure in a restaurant. Substance Use Topics Alcohol use: Yes Comment: Holidays. Drug use: No FAMILY HISTORY Problem Relation Age of Onset Hypertension Father of ruptured aortic an. Cataract Father Hypertension Mother Asthma Mother In youth. Cataract Mother Diabetes Sister ALLERGIES Allergen Reactions Lisinopril Swelling, Anaphylaxis Face, mouth, and tongue. Codeine Intolerance Headache Fosamax [Alendronat* Other: See Comments GI upset Ibuprofen GI Upset Epigastric pain. In higher dose. Lipitor [Atorvastat* Intolerance complained of weakness of legs CURRENT MEDICATIONS: metoprolol succinate ER (TOPROL XL) 25 mg 24 hr tablet Take 1 tablet by mouth twice daily. (prescribed by Dr. Daniels) Cholecalciferol, Vitamin D3, (VITAMIN D-3) 5,000 unit tab Take 5,000 Units by mouth once daily. COMPOUNDED PRESCRIPTION Viki microbial defense 17 drops daily and working up to 60 drops daily (in divided doses). Serving size 30 drops. 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 Dx: Bilat sprained ankles, gait instability. acetaminophen (TYLENOL EXTRA STRENGTH) 500 mg tablet Take 1 tablet by mouth every 6 hours as needed for Pain. Magnesium 250 mg tab Take 1,000 mg by mouth. MULTIVITAMIN TAB Take one(1) tablet daily. REVIEW OF SYSTEMS: GENERAL: Denies fever, chills malaise and weight loss. HEENT: No recent change in vision or hearing. CARDIOVASCULAR: Denies chest pain, history of A-fib, valvular disease, or pacemaker/ICD. RESPIRATORY: Denies SOB, sputum production, and hemoptysis. GI: Denies GI ulcers, inflammatory disease, or liver disease. : Denies change in frequency or urgency, kidney disease, and burning with urination. MUSCULOSKELETAL: see hpi SKIN: Denies rash or itching. PSYCHOLOGICAL: Denies uncontrolled depression or anxiety. NEURO:see hpi ENDOCRINE: Denies diabetes, thyroid disease. HEMATOLOGY/LYMPHOLOGY: Denies cancer, bleeding or clotting disorders, anemia,and DVT's. ALLERGIC/IMMUNOLOGICAL: Denies risks for infection, or recent MRSA infections. OBJECTIVE: PHYSICAL EXAM BP 109/75 (BP Site: Right Arm, BP Position: Sitting, BP Cuff Size: Large Adult) Pulse 98 Ht 147.3 cm (4' 10) Wt 68 kg (150 lb) SpO2 96% BMI 31.35 kg/m GENERAL APPEARANCE: nice lady, sitting in w/c and 2 sisters present NEURO PSYCH: Mood pleasant. Benign affect. CARDIOVASCULAR: Distal ext warm. Tr distal No edema noted. SKIN: Head, neck, and extremities dry, intact and without visible open lesions. MUSCULOSKELETAL VISUAL INSPECTION CERVICAL: WNL THORACIC: kyphotic LUMBAR: WNL But limited visual exam with standing given impaired sit to stand transfer PALPATION: SPINOUS PROCESS: TTP b/l PSP and midline LS jx SPINE ROM: LUMBAR ROM: ROM with pain CERVICAL ROM: ROM Without Pain MUSCLE BULK: reduced bulk in the upper & lower extremities. MOTOR: 4/5 in SAB/EF/FF/EE/HF/KE/DF/PFs SENSORY: reduced sensation in stocking glove distribution and knees down GAIT: unable REFLEXES: +2 at bi, br, hypoactive knees. LONG TRACT SIGNS: No clonus. No Hoffmans. Data Review: [facility] records independently reviewed ASSESSMENT/PLAN 78 yo woman with PMH thoracic compression fx, cervical and LS ddd, HTN, gastroparesis, h/o [place], h/o GIB, sarcoidosis, leg SCC, with h/o L5S1 gr 2 listhesis on prior imaging but progressed to gr 3 and on imaging over time most recent 03/2024 with elements of instability at L5S1 and severe compression fx at L1 , less at T12. Gr 3 listhesis L5S1 present since 10/2023 xr but with progressive pain and difficulty walking, but also 4/5 MMT and elements of deconditioning as well Diffusely weak mostly at w/c level and occ walking Dexa 10/2023 months ago per patient report and she stated osteopenia- but I do not have results. Will need to see spine surgeon but patient will need to make sure that has dexa with her as would impact decision for any thoughts to stabilization Other consideration is for metabolic bone- even if only osteopenia, also has compression fxs- so they may be more apt to tx Pain control per local pain management. Spoke with Dr. Lee- he notes would have office reach to get her on schedule. Patient understands above plan; questions asked and answered. Medication options, including side effects, were discussed in detail. Education was given regarding signs and symptoms that would indicate a serious change in condition, and they were instructed to seek care immediately should these arise. Patient agrees to plan as noted above. These notes are used for the purpose of medical documentation and that for use for other medical providers. Jargon expressed here is intentioned for use under this context. Jovanni Matthew MD I spent a total of 55 minutes on the date of the service which included preparing to see the patient, [id number] patient care, completing clinical documentation, obtaining and/or reviewing separately obtained history, performing a medically appropriate examination, counseling and educating the patient/family/caregiver, ordering medications, tests, or procedures, and communicating with other HCPs (not separately reported). documented in this encounter [facility] 07-21-2024 Note HNO ID: [id number] Author: JOVANNI MATTHEW MD Service: ? Author Type: Physician Type: Progress Notes Filed: 07/21/2024 14:05 Note Text: Physical Medicine and Rehabilitation New patient July 21, 2024 SUBJECTIVE HISTORY OF PRESENT ILLNESS: Lizette Davies is a 78 year old woman evaluated for back pain and concerns if needs for spine fusion/decompression Chronic back pain but right before Thanksgiving fell with worsening LBP. With eventual went to ER- there given morphine and did help but then Mele admitted for ongoing pain- was then d/lalo to SNF Given ? MARCELL 04/14/24 Then had f/u with pain management last 07/06/24- rec for [facility] spine surgery eval, but on my schedule On review of imaging with : L5S1 gr3 listhesis 03/2024 On review from 2013 lumbar xr was gr 2 By 11/13/23- this was worsened to gr 3 In transitional care- ECF - PT stopped at [facility]. Can walk some with walker- about 30 ' SBA ? Leg weakness N/T- baseline- feet and hands Legs- in knees down B/B cruz - feels but has urine incontinence Bowel cruz continent Pain 6-11/07 LS jxn upper buttock and achy On lidocaine TD, oxy 5mg IR q4h prn - typically 3-4 tabs a day, tylenol 500mg q6 hr prn, baclofen 5mg tid No AEDs/SNRIs for pain control Celexa- on MAY but she is not sure she is taking. Worse with walking Better with sitting, pain medication Patient Entered Questionnaires PROMIS Score Percentiles 06/12/2016 06/14/2016 11/01/2016 PROMIS Global Health Scale Physical Health Percentile 7 22* 10 Mental Health Percentile 13 9 26* Percentiles provide an indication of how the patient's score ranks in relation to the general population. Higher percentile rankings indicate better function/quality of life. 50th percentile is the average of the general population and indicates half of respondents had a worse score. Depression Screenin12/09/2014 02/20/2015 07/27/2015 PHQ-9 Score 5 7 5 12/09/2014 02/20/2015 07/27/2015 PHQ-9 Self-harm Question Question 9 Not at all Not at all Not at all PHQ-9 Self-Harm (Item 9) response options: 0 Not at all 1 Several days 2 More than half the days 3 Nearly every day PHQ-9 Levels: 0-4 No - mild depression 5-9 Mild depression 10-14 Moderate depression 15-19 Moderately severe depression 20-27 Severe depression ACTIVE PROBLEM LIST Essential Hypertension Malaise and Fatigue Internal Hemorrhoids Without Mention of Complication Hemorrhage of Gastrointestinal Tract, Unspecified Myalgia and Myositis, Unspecified Congenital Pes Planus Tibialis Tendinitis Generalized Osteoarthrosis, Unspecified Site Contact Dermatitis and Other Eczema, Due to Unspecified Cause Low Back Pain Numbness and Tingling in Hands Spinal Cord Lesion (Hcc) Neck Pain Gait Instability Myelopathy (Hcc) Closed Spondylolysis Fracture of Lumbar Vertebra Spondylolisthesis, Grade 3 Abnormality of Gait Muscle Weakness (Generalized) Angioedema Special Screening for Malignant Neoplasms, Colon Gastroparesis Ischial Bursitis of Right Side Sarcoidosis Balance Problem Chronic Cholecystitis With Calculus Chronic Right-Sided Low Back Pain With Right-Sided Sciatica Sacroiliac Pain PAST MEDICAL HISTORY Diagnosis Date Blood type O+ Compression fracture of thoracic vertebra (HCC) DDD (degenerative disc disease), cervical MRI scanned into [facility] January 11, 2014 ([facility]) DDD (degenerative disc disease), lumbosacral Essential hypertension, benign Dr. Daniels Gastroparesis Mild to moderate--test done 09/2014 Generalized OA Heart attack (HCC) Hemorrhage of gastrointestinal tract 01/2015 EGD huge ulcer 01/2015 all cleared 03/2015, Edis Angeles MD Hemorrhage of gastrointestinal tract, unspecified 03/08/2005 Internal hemorrhoids without mention of complication 03/08/2005 Morbid obesity with BMI of 40.0-44.9, adult (HCC) Sarcoidosis SCC (squamous cell carcinoma), leg 09/28/[address] Joe Dhillon on left goodwin Snoring Unspecified constipation 03/08/2005 PAST SURGICAL HISTORY Procedure Laterality Date ARTHRP KNE CONDYLEANDPLATU MEDIALANDLAT COMPARTMENTS 11/05/2004 Knee replacement, total left ARTHRP KNE CONDYLEANDPLATU MEDIALANDLAT COMPARTMENTS 07/2010 right knee COLONOSCOPY FLX DX W/COLLJ SPEC WHEN PFRMD 11/24/2000 Colonoscopy COLONOSCOPY FLX DX W/COLLJ SPEC WHEN PFRMD 10/06/2014 Colonoscopy ESOPHAGOGASTRODUODENOSCOPY TRANSORAL DIAGNOSTIC 12/31/13 EGD ESOPHAGOGASTRODUODENOSCOPY TRANSORAL DIAGNOSTIC 02/16/15 EGD [facility] inpt ESOPHAGOGASTRODUODENOSCOPY TRANSORAL DIAGNOSTIC 05/11/15 EGD EXTRACTION, ERUPTED TOOTH OR EXPOSED ROOT (ELEVATION AND/OR FORCEPS REMOVAL) 1969' [place] teeth FOOT RIGHT OP SURGERY 01/2009 PAST SURGICAL HISTORY OF 1996 Bone fusion 1st MT and pin right foot PAST SURGICAL HISTORY OF 01/2013 left carpal tunnel surgery PAST SURGICAL HISTORY OF right Lasik 2001 PAST SURGICAL HISTORY OF 09/13 Skin (more content not included)... [facility] 05-19-2024 Note [facility] 05-18-2024 Note [facility] 04-16-2024 Evaluation note Diagnosis Onset Date Resolution Compression fracture of L1 vertebra acute April 16 3:42pm Debility acute April 16, 2024 3:42pm Essential (primary) hypertension acute April 16 3:42pm Hypomagnesemia acute April 162024 3:42pm Neuropathic pain, leg, bilateral acute April 16 3:42pm Postmenopausal bleeding acute J anuary 2024 3:42pm Radiculopathy of lumbar region acute April 16 3:42pm Radiculopathy of lumbosacral region acute April 16, 2024 3:42pm Vitamin D deficiency acute Ralph 2024 3:42pm Sarcoidosis chronic April 16, 2024 3:42pm Intractable low back pain resolved April 16 3:42pm [facility] Work Phone: 1(982) 863-714801-17-2025 [facility]01-17-2025 [facility]-15-2025 Evaluation note* Diagnosis Onset Date Resolution Status Admit Date Age-related osteoporosis wit h current pathol fracture of vertebra acute April 14 3:42pm Compression fracture of L1 vertebra acute April 14 3:42pm Radiculopathy of lumbar region acute April 14, 2024 3:42pm Unable to ambulate acute 2024 3:42pm Chronic back pain chronic April 14, 2024 3:42pm Compression fracture of L1 vertebra acute April 16 3:42pm Debility acute April 16, 2024 3:42pm Essential (primary) hypertension acute April 16 3:42pm Hypomagnesemia acute April 162024 3:42pm Neuropathic pain, leg, bilateral acute April 16 3:42pm Postmenopausal bleeding acute J anuary 2024 3:42pm Radiculopathy of lumbar region acute April 16, 2024 3:42pm Radiculopathy of lumbosacral region acute April 16 3:42pm Vitamin D deficiency acute Ralph 2024 3:42pm Sarcoidosis chronic April 16, 2024 3:42pm Intractable low back pain resolved April 16, 2024 3:42pm [facility] Work Phone: 1(797) 862-303401-15-2025 [facility]01-14-2025 [facility]-02-2024 Discharge summary Author Geo Phillip [facility] May 02, 2023 3:54pm Note Date/Time May 02, 2023 3 :54pm [facility] Physical Therapy [address] [place] [address] / REHABILITATION SERVICES DISCHARGE SUMMARY MR#: [id number] Acct: [id number] Name: LIZETTE DAVIES Rep #: [id number] : 1945 77 From: Geo Phillip PT, ATC Referring Dr.: Dr. Michael Snowden MD Status: REG RCR Insurance: [employer] PPO SELF PAY INSURANCE Discharge Summary D/C summary: It has been my pleasure to treat LIZETTE DAVIES referred by Dr. Michael Snowden MD, with the diagnosis of Debility for a total of 79 visit(s). Discharge Date: Please see the following information for a summary of their discharge status. Subjective Subjective: Pt reports she is not in pain, she is just numb and stiff. Pain LBP: Pain Intensity (Out of 10): 0 Overall Improvement % Improvement: 60 Objective Objective/Function: MMT: B LE's are grossly 4+/5 Pt is able to ambulate 340 feet until needing to rest Pt performs 12 sit to stand ex's in 30 sec Pt is I with HEP Goals Goal 1:: Increase B LE strength to 4+/5-5/5 to aid with ascending 1 flight of stairs Goal Progress: Goal Met Goal 2:: Pt will be able to ambulate 600 with LRD and no rest break to aid withindependence with community ambulation Goal Progress: Progressing Goal 3:: Pt will be I with HEP of B LE strengthening and balance activity Goal Progress: Goal Met Goal 4:: Perform 15 sit to stands in 30 seconds to aid with home and community mobility Goal Progress: Progressing Plan Plan: Discontinue to HEP D/C Information d/c sentence: If there are questions or concerns regarding this patient's physical therapy, please feel free to call me at [phone]. Thank you for the referral of thispatient. Sincerely, Geo Phillip, PT, ATC Balance/Gait/Functional tests Balance/Special Test Scores Lower Extremity Functional Score: 19 Improvement % Improvement: 60 <Electronically signed by Geo Phillip PT, ATC> 05/02/23 [id number] CC: Dr. Michael Snowden MD ~ [facility] Signed [facility] Work Phone: 1(629) 813-328603-17-2023 Discharge summary Author Geo Phillip [facility] June 14, 2022 3:55pm Note Date/Time June 14, 2022 3:4 9pm [facility] Physical Therapy [facility] [address] [place] [address] / REHABILITATION SERVICES DISCHARGE SUMMARY MR#: [id number] Acct: [id number] Name: LIZETTE DAVIES Rep #: [id number] : 1945 76 From: Geo Phillip PT, ATC Referring Dr.: Dr. Michael Snowden MD Status: REG RCR Insurance: [employer] PPO SELF PAY INSURANCE ADDENDUM by PT ATC Geo Phillip on 06/14/22 at 1555 This discharge was made in error 06/14/22 1555 Date _ Geo Phillip PT, ATC cc: Dr. Michael Snowden MD ~* Signed It has been my pleasure to treat LIZETTE DAVIES referred by Dr. Michael Snowden MD, with the diagnosis of Debility for a total of 10 visit(s). Discharge Date: Please see the following information for a summary of their discharge status. Subjective: I have to have a cardiac cath today Bilateral Neck Pain Intensity (Out of 10): 0 % Improvement: 20 Objective/Function: Pt kareem all ex's well. Increased fatigue post session. Goal 1:: Increase B LE strength x 1 grade to aid with stair negotiation Goal 2:: Pt will be able to reciprocally negotiate 10 stairs with 1-2 handrails to aid with community mobility Goal 3:: Pt will be able to ambulate 1000 feet to aid with community ambulation Goal 4:: I with HEP Plan: B LE strengthening, balance and proprio, core strengthening, nustep, and HEP. If there are questions or concerns regarding this patient's physical therapy, please feel free to call me at [phone]. Thank you for the referral of thispatient. Sincerely, Geo Phillip, PT, ATC Balance/Gait/Functional tests - Balance/Special Test Scores Lower Extremity Functional Score: 12 <Electronically signed by Geo Phillip PT, ATC> 06/14/22 1549 CC: Dr. Michael Snowden MD ~ [facility] Signed [facility] Work Phone: Evaluation noteNo assessment information available [facility] Work Phone: Evaluation note* Diagnosis Onset Date Resolution Status Essential (primary) hypertension chronic Nonrheumatic aortic (valve) stenosis chronic Supraventricular tachycardia chronic [facility] Work Phone: Evaluation note* Diagnosis Onset Date Resolution Status Abdominal pain acute Diarrhea chronic [facility] Work Phone: Evaluation note* Diagnosis Onset Date Resolution Status Cellulitis acute Gastroparesis acute Diarrhea chronic [facility] Work Phone: Evaluation note* Diagnosis Onset Date Resolution Status Essential (primary) hypertension chronic Nonrheumatic aortic (valve) stenosis chronic Supraventricular tachycardia chronic Cellulitis acute Gastroparesis acute Diarrhea chronic [facility] Work Phone: Evaluation note* Diagnosis Onset Date Resolution Status Cellulitis acute Gastroparesis acute Diarrhea chronic Essential (primary) hypertension chronic Nonrheumatic aortic (valve) stenosis chronic Supraventricular tachycardia chronic [facility] Work Phone: Evaluation note* Diagnosis Osteopenia, unspecified location- Primary History of vertebral compression fracture Spondylolisthesis, grade 3 [facility] Acquired spondylolisthesis- Primary Cervical spondylosis without myelopathy Neural foraminal stenosis of lumbar spine Spinal stenosis, lumbar region, without neurogenic claudication Closed compression fracture of body of L1 vertebra (HCC) documented in this encounter [facility] Chief Complaint and Reason for Visit Chief Complaint WEAKNESS OF LEG. RX HERE Chief Complaint WEAKNESS OF LEG. RX HERE 9 M FU WEAKNESS OF LEG/RX HERE Reason for Visit Essential (primary) hypertension Nonrheumatic aortic (valve) stenosis Supraventricular tachycardia Chief Complaint WEAKNESS OF LEG/RX H ERE Consult INT LABS BALANCE RX HERE Reason for Visit Abdominal pain Diarrhea Chief Complaint Consult INT LABS ABDOMINAL PAIN BALANCE RX HERE Reason for Visit Abdominal pain Diarrhea Chief Complaint Consult INT LABS ABDOMINAL PAIN EORDER BALANCE RX HERE Reason for Visit Abdominal pain Diarrhea Chief Complaint ABDOMINAL PAIN EORDER 3 MO FU BALANCE RX HERE Reason for Visit Cellulitis Gastroparesis Diarrhea Chief Complaint EORDER 3 MO FU BALANCE RX HERE BALANCE RX HERE Reason for Visit Cellulitis Gastroparesis Diarrhea Chief Complaint 1 Y FU 5 M FU BALANCE RX HERE Reason for Visit Essential (primary) hypertension Nonrheumatic aortic (valve) stenosis Supraventricular tachycardia Cellulitis Gastroparesis Diarrhea Chief Complaint 5 M FU BALANCE RX HERE 3 M FU Pain in left knee Reason for Visit Cellulitis Gastroparesis Diarrhea Essential (primary) hypertension Nonrheumatic aortic (valve) stenosis Supraventricular tachycardia Chief Complaint 5 M FU BALANCE RX HERE 3 M FU Pain in left knee [id number] Reason for Visit Cellulitis Gastroparesis Diarrhea Essential (primary) hypertension Nonrheumatic aortic (valve) stenosis Supraventricular tachycardia Chief Complaint BALANCE RX HERE 3 M FU Pain in left knee MURMUR, SVT [id number] Reason for Visit Essential (primary) hypertension Nonrheumatic aortic (valve) stenosis Supraventricular tachycardia Chief Complaint Admit Date LEG WEAKNESS/PAIN. RX HERE February 3:00pm BACK PAIN March 30, 2024 7:15pm LUMBAR COMPRESSION FRACTURE W/PAIN Janua 2024 1:26pm LUMBAR COMPRESSION FRACTURE W/PAIN Janua 2024 4:22pm LUMBAR COMPRESSION FRACTURE W/PAIN Janua 2024 10:49am PREOP April 14, 2024 4 :50am LUMBAR COMPRESSION FRACTURE W/PAIN Janua 2024 11:43am LUMBAR COMPRESSION FRACTURE W/PAIN Janua 2024 3:42pm LUMBAR COMPRESSION FRACTURE W/PAIN Janua 2024 10:46am LUMBAR COMPRESSION FRACTURE W/PAIN Janua 2024 9:51am LUMBAR COMPRESSION FRACTURE W PAIN Janua 2024 3:42pm ADMISSION EXAM May 21, 2024 10:56am ADMISSION EXAM May 25, 2024 1:55pm ASSISTED LAB WORK June 01, 2024 4: 00am ASSISTED LAB WORK June 08, 2024 4 :00am Reason for Visit Admit Date Age-related osteoporosis wit h current pathol fracture of vertebra April 14, 2024 3:42pm Compression fracture of L1 vertebra Ralph caban 2024 3:42pm Radiculopathy of lumbar region March 312024 3:42pm Unable to ambulate April 14, 2024 3 :42pm Chronic back pain April 14, 2024 3 :42pm Compression fracture of L1 vertebra Ralph caban 2024 3:42pm Debility April 16, 2024 3 :42pm Essential (primary) hypertension April 16, 2024 3:42pm Hypomagnesemia April 16, 2024 3 :42pm Neuropathic pain, leg, bilateral April 16, 2024 3:42pm Postmenopausal bleeding April 16 3:42pm Radiculopathy of lumbar region March 312024 3:42pm Radiculopathy of lumbosacral region Ralph caban 2024 3:42pm Vitamin D deficiency April 16, 2024 3:42pm Sarcoidosis April 16, 2024 3 :42pm Intractable low back pain April 16, 2024 3:42pm Chief Complaint Admit Date LEG WEAKNESS/PAIN. RX HERE February 3:00pm BACK PAIN March 30, 2024 7:15pm LUMBAR COMPRESSION FRACTURE W/PAIN Janua ry 2024 1:26pm LUMBAR COMPRESSION FRACTURE W/PAIN Janua 2024 4:22pm LUMBAR COMPRESSION FRACTURE W/PAIN Janua ry 2024 10:49am PREOP April 14, 2024 4 :50am LUMBAR COMPRESSION FRACTURE W/PAIN Janua ry 2024 11:43am LUMBAR COMPRESSION FRACTURE W/PAIN Janua ry 2024 3:42pm LUMBAR COMPRESSION FRACTURE W/PAIN Janua ry 2024 10:46am LUMBAR COMPRESSION FRACTURE W/PAIN Janua 2024 9:51am LUMBAR COMPRESSION FRACTURE W PAIN Janua ry 2024 3:42pm ADMISSION EXAM May 21, 2024 10:56am ADMISSION EXAM May 25, 2024 1:55pm ASSISTED LAB WORK June 01, 2024 4: 00am ASSISTED LAB WORK June 08, 2024 4 :00am ASSISTED LAB WORK June 15, 2024 5 :00am Chief Complaint Admit Date LEG WEAKNESS/PAIN. RX HERE February 3:00pm BACK PAIN March 30, 2024 7:15pm LUMBAR COMPRESSION FRACTURE W/PAIN Meleua ry 2024 1:26pm LUMBAR COMPRESSION FRACTURE W/PAIN Yani ry 2024 4:22pm LUMBAR COMPRESSION FRACTURE W/PAIN Meleua ry 2024 10:49am PREOP April 14, 2024 4 :50am LUMBAR COMPRESSION FRACTURE W/PAIN Meleua ry 2024 11:43am LUMBAR COMPRESSION FRACTURE W/PAIN Meleua ry 2024 3:42pm LUMBAR COMPRESSION FRACTURE W/PAIN Meleua ry 2024 10:46am LUMBAR COMPRESSION FRACTURE W/PAIN Meleua ry 2024 9:51am LUMBAR COMPRESSION FRACTURE W PAIN Yani ry 2024 3:42pm ADMISSION EXAM May 21, 2024 10:56am ADMISSION EXAM May 25, 2024 1:55pm ASSISTED LAB WORK June 01, 2024 4: 00am ASSISTED LAB WORK June 08, 2024 4 :00am ASSISTED LAB WORK June 15, 2024 5 :00am ASSISTED LAB WORK June 22, 2024 5 :00am Chief Complaint Admit Date LUMBAR COMPRESSION FRACTURE W/PAIN Meleua ry 2024 1:26pm LUMBAR COMPRESSION FRACTURE W/PAIN Yani ry 2024 4:22pm LUMBAR COMPRESSION FRACTURE W/PAIN Yani ry 2024 10:49am PREOP April 14, 2024 4 :50am LUMBAR COMPRESSION FRACTURE W/PAIN Meleua ry 2024 11:43am LUMBAR COMPRESSION FRACTURE W/PAIN Meleua ry 2024 3:42pm LUMBAR COMPRESSION FRACTURE W/PAIN Meleua ry 2024 10:46am LUMBAR COMPRESSION FRACTURE W/PAIN Meleua ry 2024 9:51am LUMBAR COMPRESSION FRACTURE W PAIN Meleua ry 2024 3:42pm ADMISSION EXAM May 21, 2024 10:56am ADMISSION EXAM May 25, 2024 1:55pm ASSISTED LAB WORK June 01, 2024 4: 00am ASSISTED LAB WORK June 08, 2024 4 :00am ASSISTED LAB WORK June 15, 2024 5 :00am ASSISTED LAB WORK June 22, 2024 5 :00am NEW CONCERN June 23, 2024 4:5 8pm ASSISTED LAB WORK June 29, 2024 5: 00am ASSISTED LAB WORK July 06, 2024 5: 00am ASSISTED LAB WORK July 13, 2024 5 :00am Chief Complaint Admit Date LUMBAR COMPRESSION FRACTURE W PAIN Yani ivey 2024 3:42pm ADMISSION EXAM May 21, 2024 10:56am ADMISSION EXAM May 25, 2024 1:55pm ASSISTED LAB WORK June 01, 2024 4: 00am ASSISTED LAB WORK June 08, 2024 4 :00am ASSISTED LAB WORK June 15, 2024 5 :00am ASSISTED LAB WORK June 22, 2024 5 :00am NEW CONCERN June 23, 2024 4:5 8pm ASSISTED LAB WORK June 29, 2024 5: 00am ASSISTED LAB WORK July 06, 2024 5: 00am ASSISTED LAB WORK July 13, 2024 5 :00am ASSISTED LAB WORK July 20, 2024 4 :00am ASSISTED LAB WORK July 27, 2024 5 :00am Reason for Visit Admit Date Compression fracture of L1 vertebra Ralph caban 2024 3:42pm Debility April 16, 2024 3 :42pm Essential (primary) hypertension April 16, 2024 3:42pm Hypomagnesemia April 16, 2024 3 :42pm Neuropathic pain, leg, bilateral April 16, 2024 3:42pm Postmenopausal bleeding April 16 3:42pm Radiculopathy of lumbar region March [id number] 3:42pm Radiculopathy of lumbosacral region Ralph caban 2024 3:42pm Vitamin D deficiency April 16, 2024 3:42pm Sarcoidosis April 16, 2024 3 :42pm Intractable low back pain April 16, 2024 3:42pm Chief Complaint Admit Date LUMBAR COMPRESSION FRACTURE W PAIN Yani ivey 2024 3:42pm ADMISSION EXAM May 21, 2024 10:56am ADMISSION EXAM May 25, 2024 1:55pm ASSISTED LAB WORK June 01, 2024 4: 00am ASSISTED LAB WORK June 08, 2024 4 :00am ASSISTED LAB WORK June 15, 2024 5 :00am ASSISTED LAB WORK June 22, 2024 5 :00am NEW CONCERN June 23, 2024 4:5 8pm ASSISTED LAB WORK June 29, 2024 5: 00am ASSISTED LAB WORK July 06, 2024 5: 00am ASSISTED LAB WORK July 13, 2024 5 :00am ASSISTED LAB WORK July 20, 2024 4 :00am ASSISTED LAB WORK July 27, 2024 5 :00am LABWORK August 10, 2024 5:00a m Family History No Family History Records Found Relationship Condition Age at Onset Recorded Date/T mara father Hypertension Unknown Aortic aneurysm Unknown mother Hypertension Unknown sister Hypertension Unknown Diabetes mellitus Unknown Unknown Family Member Name Dates Details Father Comments:Aortic Aneurysm, Es sential Hypertension Status:Active Advance Directives No Advanced Directives Records Found Advance Directive Response Recorded Date/ Time Advance Directives Yes January 2:49am Living Will Yes April 10 5:15pm Power of Supervisor [employer] Yes April 10, 2021 5:15pm Advance Directive Response Recorded Date/ Time Advance Directives Yes January 1:49am Living Will Yes April 10 4:15pm Power of Supervisor [employer] Yes April 10, 2021 4:15pm Advance Directive Response Recorded Date/ Time Living Will No March 30, 9:41pm Do you have a Healthcare Power of Supervisor [employer]? No March 30, 2024 9:41pm Living Will Yes April 10 5:15pm Do you have a Healthcare Power of Supervisor [employer]? Yes April 10, 2021 5:15pm Living Will No April 11 3:41pm Do you have a Healthcare Power of Supervisor [employer]? No April 11, 2024 3:41pm Living Will No April 19 5:36pm Do you have a Healthcare Power of Supervisor [employer]? No April 19, 2024 5:36pm Advance Directives Yes January 2:49am Advance Directive Response Recorded Date/ Time Living Will No April 11 3:41pm Do you have a Healthcare Power of Supervisor [employer]? No April 11, 2024 3:41pm Living Will No April 19 5:36pm Do you have a Healthcare Power of Supervisor [employer]? No April 19, 2024 5:36pm Advance Directives Yes January 2:49am Advance Directive Response Recorded Date/ Time Living Will No April 19 5:36pm Do you have a Healthcare Power of Supervisor [employer]? No April 19, 2024 5:36pm Advance Directives Yes January 2:49am Summary Purpose Additional Source Comments Goals (unrecognized section and content) Goals may be documented in a n alternate sectionGoals may be documented in an alternate sectionGoals may be documented in an alternate sectionGoals may be documented in an alternate sectionGoals may be documented in an alternate sectionGoals may be documented in an alternate sectionGoals may be documented in an alternate sectionGoals may be documented in an alternate sectionGoals may be documented in an alternate sectionGoals may be documented in an alternate sectionGoals may be documented in an alternate sectionGoals may be documented in an alternate sectionGoals may be documented in an alternate section Care Teams (unrecognized sec tion and content) Team Status: Active Member Role Status Dates Dr. Michael Snowden MD Family Provider Active Dr. Michael Snowden MD Primary Care Provider Active Team Status: Inactive Member Role Status Dates Dr. Michael Snowden MD Primary Care Provider, Referring Provider Active Dr. Sae Brandt DO Attending Provider Active Team Status: Active Member Role Status Dates Dr. Michael Snowden MD Primary Care Provi judy, Attending Provider, Referring Provider Active Team Status: Inactive Member Role Status Dates Dr. Michael Snowden MD Primary Care Provider, Attending Provider Active Team Status: Inactive Member Role Status Dates Dr. Michael Snowden MD Primary Care Provider Active Dr. Sae Brandt DO Attending Provider, Referring Provider Active Team Status: Inactive Member Role Status Dates Dr. Michael Snowden MD Primary Care Provider Active Dr. Sae Brandt DO Attending Provider Active Team Status: Inactive Member Role Status Dates Dr. Michael Snowden MD Primary Care Provi judy, Attending Provider, Referring Provider Active Team Status: Inactive Member Role Status Dates Dr. Michael Snowden MD Primary Care Provider, Referring Provider Active Ashley Ernst PA, PA Attending Provider Active Team Status: Inactive Member Role Status Dates Dr. Michael Snowden MD Primary Care Provider Active Dr. Gaetano Cleary DO Attending Provider, Referring Provider Active Team Status: Active Member Role Status Dates Dr. Michael Snowden MD Primary Care Provider Active Dr. Gaetano Cleary DO Attending Provider, Referring Provider Active Team Status: Active Member Role Status Dates Dr. Michael Snowden MD Primary Care Provider Active Dr. Bret Daniels MD Attending Provider Active Team Status: Inactive Member Role Status Dates Dr. Michael Snowden MD Primary Care Provider Active Ashley Ernst PA, PA Attending Provider, Referr ing Provider Active Team Status: Inactive Member Role Status Dates Dr. Michael Snowden MD Primary Care Provider Active Start: March 25, 2024 End: March 25, 2024 Dr. Michael Snowden MD Attending Provider Active Start: March 25, 2024 End: March 25, 2024 Dr. Michael Snowden MD Referring Provider Active Start: March 25, 2024 End: March 25, 2024 Team Status: Inactive Member Role Status Dates Dr. Michael Snowden MD Primary Care Provider Active Start: March 30, 2024 End: March 31, 2024 Dr. Floridalma Bingham DO Attending Provider Active Start: March 30, 2024 End: March 31, 2024 Dr. Floridalma Bingham DO Emergency Provider Active Start: March 30, 2024 End: March 31, 2024 Team Status: Active Member Role Status Dates Dr. Michael Snowden MD Primary Care Provider Active Start: April 11, 2024 Dr. Melvin Swenson DO Emergency Provider Active S tart: April 11, 2024 Dr. Lesli Watkins MD Admit Provider Active Star t: April 11, 2024 Dr. Lesli Watkins MD Attending Provider Active Start: April 11, 2024 Dr. Lesli Watkins MD Other Provider Active Star t: April 11, 2024 Team Status: Active Member Role Status Dates Dr. Michael Snowden MD Primary Care Provider Active Start: April 12, 2024 Dr. Melvin Swenson DO Emergency Provider Active S tart: April 12, 2024 Dr. Lesli Watkins MD Admit Provider Active Star t: April 12, 2024 Dr. Lesli Watkins MD Attending Provider Active Start: April 12, 2024 Dr. Lesli Watkins MD Other Provider Active Star t: April 12, 2024 Dr. Aissatou Lieberman MD Other Provider Active Star t: April 12, 2024 Team Status: Active Member Role Status Dates Dr. Michael Snowden MD Primary Care Provider Active Start: April 13, 2024 Dr. Melvin Swenson DO Emergency Provider Active S tart: April 13, 2024 Dr. Lesli Watkins MD Admit Provider Active Star t: April 13, 2024 Dr. Lesli Watkins MD Other Provider Active Star t: April 13, 2024 Dr. Aissatou Lieberman MD Other Provider Active Star t: April 13, 2024 Dr. Gabo Hernandez MD Attending Provider Active Start: April 13, 2024 Dr. Gabo Hernandez MD Other Provider Active Start: April 13, 2024 Team Status: Active Member Role Status Dates Dr. Michael Snowden MD Primary Care Provider Active Start: April 14, 2024 End: April 14, 2024 Dr. Indu Pacheco MD Attending Provider Activ e Start: April 14, 2024 End: April 14, 2024 Dr. Indu Pacheco MD Referring Provider Activ e Start: April 14, 2024 End: April 14, 2024 Team Status: Active Member Role Status Dates Dr. Michael Snowden MD Primary Care Provider Active Start: April 14, 2024 Dr. Melvin Swenson DO Emergency Provider Active S tart: April 14, 2024 Dr. Lesli Watkins MD Admit Provider Active Star t: April 14, 2024 Dr. Lesli Watkins MD Other Provider Active Star t: April 14, 2024 Dr. Aissatou Lieberman MD Other Provider Active Star t: April 14, 2024 Dr. Gabo Hernandez MD Attending Provider Active Start: April 14, 2024 Dr. Gabo Hernandez MD Other Provider Active Start: April 14, 2024 Team Status: Inactive Member Role Status Dates Dr. Michael Snowden MD Primary Care Provider Active Start: April 14, 2024 End: April 16, 2024 Dr. Melvin Swenson DO Emergency Provider Active S tart: April 14, 2024 End: April 16, 2024 Dr. Lesli Watkins MD Admit Provider Active Star t: April 14, 2024 End: April 16, 2024 Dr. Lesli Watkins MD Other Provider Active Star t: April 14, 2024 End: April 16, 2024 Dr. Aissatou Lieberman MD Other Provider Active Star t: April 14, 2024 End: April 16, 2024 Dr. Gabo Hernandez MD Attending Provider Active Start: April 14, 2024 End: April 16, 2024 Team Status: Active Member Role Status Dates Dr. Michael Snowden MD Primary Care Provider Active Start: April 15, 2024 Dr. Melvin Swenson DO Emergency Provider Active S tart: April 15, 2024 Dr. Lesli Watkins MD Admit Provider Active Star t: April 15, 2024 Dr. Lesli Watkins MD Other Provider Active Star t: April 15, 2024 Dr. Aissatou Lieberman MD Other Provider Active Star t: April 15, 2024 Dr. Gabo Hernandez MD Attending Provider Active Start: April 15, 2024 Dr. Gabo Hernandez MD Other Provider Active Start: April 15, 2024 Team Status: Active Member Role Status Dates Dr. Michael Snowden MD Primary Care Provider Active Start: April 16, 2024 Dr. Melvin Swenson DO Emergency Provider Active S tart: April 16, 2024 Dr. Lesli Watkins MD Admit Provider Active Star t: April 16, 2024 Dr. Lesli Watkins MD Other Provider Active Star t: April 16, 2024 Dr. Aissatou Lieberman MD Other Provider Active Star t: April 16, 2024 Dr. Gabo Hernandez MD Attending Provider Active Start: April 16, 2024 Dr. Gabo Hernandez MD Other Provider Active Start: April 16, 2024 Team Status: Inactive Member Role Status Dates Dr. Michael Snowden MD Primary Care Provider Active Start: April 16, 2024 End: May 21, 2024 Dr. Michael Snowden MD Admit Provider Active Star t: April 16, 2024 End: May 21, 2024 Dr. Michael Snowden MD Attending Provider Active Start: April 16, 2024 End: May 21, 2024 Dr. Michael Snowden MD Referring Provider Active Start: April 16, 2024 End: May 21, 2024 Dr. Gabo Minaya MD Other Provider Active Start: April 16, 2024 End: May 21, 2024 Team Status: Inactive Member Role Status Dates Dr. Michael Snowden MD Primary Care Provider Active Start: May 21, 2024 End: May 21, 2024 Audra Drake NP, NP-C Attending Provider Active Start: May 21, 2024 End: May 21, 2024 Team Status: Inactive Member Role Status Dates Dr. Michael Snowden MD Primary Care Provider Active Start: May 25, 2024 End: May 25, 2024 Dr. Nikia Henderson MD Attending Provider Active Start: May 25, 2024 End: May 25, 2024 Team Status: Inactive Member Role Status Dates Dr. Michael Snowden MD Primary Care Provider Active Start: June 01, 2024 End: June 01, 2024 Nikia JAVIER MD Attending Provider Active Start: June 01, 2024 End: June 01, 2024 Nikia JAVIER MD Referring Provider Active Start: June 01, 2024 End: June 01, 2024 Team Status: Active Member Role Status Dates Dr. Michael Snowden MD Primary Care Provider Active Start: June 08, 2024 Nikia JAVIER MD Attending Provider Active Start: June 08, 2024 Nikia JAVIER MD Referring Provider Active Start: June 08, 2024 Team Status: Active Member Role Status Dates Dr. Michael Snowden MD Primary Care Provider Active Start: June 15, 2024 Nikia JAVIER MD Attending Provider Active Start: June 15, 2024 Team Status: Active Member Role Status Dates Dr. Michael Snowden MD Primary Care Provider Active Start: June 22, 2024 MAR Noe Attending Provider Active Start: June 22, 2024 Team Status: Active Member Role Status Dates Dr. Michael Snowden MD Primary Care Provider Active Start: June 29, 2024 MAR Noe Attending Provider Active Start: June 29, 2024 Team Status: Inactive Member Role Status Dates Dr. Michael Snowden MD Primary Care Provider Active Start: June 08, 2024 End: June 08, 2024 Nikia JAVIER MD Attending Provider Active Start: June 08, 2024 End: June 08, 2024 Nikia JAVIER MD Referring Provider Active Start: June 08, 2024 End: June 08, 2024 Team Status: Inactive Member Role Status Dates Dr. Michael Snowden MD Primary Care Provider Active Start: June 15, 2024 End: June 15, 2024 Nikia JAVIER MD Attending Provider Active Start: June 15, 2024 End: June 15, 2024 Team Status: Active Member Role Status Dates Dr. Michael Snowden MD Primary Care Provider Active Start: July 06, 2024 Nikia JAVIER MD Attending Provider Active Start: July 06, 2024 Team Status: Inactive Member Role Status Dates Dr. Michael Snowden MD Primary Care Provider Active Start: June 22, 2024 End: June 22, 2024 MAR Noe Attending Provider Active Start: June 22, 2024 End: June 22, 2024 Team Status: Active Member Role Status Dates Dr. Michael Snowden MD Primary Care Provider Active Start: July 13, 2024 Nikia JAVIER MD Attending Provider Active Start: July 13, 2024 Paint Department Supervisor Relationship Specialty Start Date End Date Michael Snowden Chi PCP - General Gerontology 09/05/17 Team Status: Inactive Member Role Status Dates Dr. Michael Snowden MD Primary Care Provider Active Start: June 23, 2024 End: June 23, 2024 Audra Drake NP DRIVER EXAMINER-C Attending Provider Active Start: June 23, 2024 End: June 23, 2024 Team Status: Inactive Member Role Status Dates Dr. Michael Snowden MD Primary Care Provider Active Start: June 29, 2024 End: June 29, 2024 Audra JAVIER NP-C Attending Provider Active Start: June 29, 2024 End: June 29, 2024 Team Status: Inactive Member Role Status Dates Dr. Michael Snowden MD Primary Care Provider Active Start: July 06, 2024 End: July 06, 2024 Nikia JAVIER MD Attending Provider Active Start: July 06, 2024 End: July 06, 2024 Team Status: Inactive Member Role Status Dates Dr. Michael Snowden MD Primary Care Provider Active Start: July 13, 2024 End: July 13, 2024 Nikia JAVIER MD Attending Provider Active Start: July 13, 2024 End: July 13, 2024 Team Status: Active Member Role Status Dates Dr. Michael Snowden MD Primary Care Provider Active Start: July 20, 2024 Nikia JAVIER MD Attending Provider Active Start: July 20, 2024 Team Status: Active Member Role Status Dates Dr. Michael Snowden MD Primary Care Provider Active Start: July 27, 2024 MAR Noe Attending Provider Active Start: July 27, 2024 Team Status: Active Member Role Status Dates Dr. Michael Snowden MD Primary Care Provider Active Start: August 03, 2024 MAR Noe Attending Provider Active Start: August 03, 2024 Paint Department Supervisor Relationship Specialty Start Date End Date Michael Snowden Chi PCP - General Gerontology 09/05/17 Paint Department Supervisor Relationship Specialty Start Date End Date Michael Snowden Chi PCP - General Gerontology 09/05/17 Paint Department Supervisor Relationship Specialty Start Date End Date Michael Snowden Chi PCP - General Gerontology 09/05/17 Team Status: Inactive Member Role Status Dates Dr. Michael Snowden MD Primary Care Provider Active Start: July 20, 2024 End: July 20, 2024 Nikia JAVIER MD Attending Provider Active Start: July 20, 2024 End: July 20, 2024 Nikia JAVIER MD Referring Provider Active Start: July 20, 2024 End: July 20, 2024 Team Status: Inactive Member Role Status Dates Dr. Michael Snowden MD Primary Care Provider Active Start: July 27, 2024 End: July 27, 2024 MAR Noe Attending Provider Active Start: July 27, 2024 End: July 27, 2024 Team Status: Active Member Role Status Dates Dr. Michael Snowden MD Primary Care Provider Active Start: August 10, 2024 Nikia JAVIER MD Attending Provider Active Start: August 10, 2024 Team Status: Active Member Role Status Dates Dr. Michael Snowden MD Primary Care Provider Active Start: August 17, 2024 Nikia JAVIER MD Attending Provider Active Start: August 17, 2024 Team Status: Active Member Role Status Dates Dr. Michael Snowden MD Primary Care Provider Active Start: August 24, 2024 Nikia JAVIER MD Attending Provider Active Start: August 24, 2024 Team Status: Inactive Member Role Status Dates Dr. Michael Snowden MD Primary Care Provider Active Start: August 10, 2024 End: August 10, 2024 Nikia JAVIER MD Attending Provider Active Start: August 10, 2024 End: August 10, 2024 Source Comments (unrecognize d section and content) In the event this informatio n is protected by the Federal Confidentiality of Alcohol and Drug Abuse Patient Records regulations: The Federal rules restrict any use of the information to criminally investigate or prosecute any alcohol or drug abuse patient.[facility] the event this information is protected by the Federal Confidentiality of Alcohol and Drug Abuse Patient Records regulations: The Federal rules restrict any use of the information to criminally investigate or prosecute any alcohol or drug abuse patient.[facility] the event this information is protected by the Federal Confidentiality of Alcohol and Drug Abuse Patient Records regulations: The Federal rules restrict any use of the information to criminally investigate or prosecute any alcohol or drug abuse patient.[facility] the event this information is protected by the Federal Confidentiality of Alcohol and Drug Abuse Patient Records regulations: The Federal rules restrict any use of the information to criminally investigate or prosecute any alcohol or drug abuse patient.[facility] the event this information is protected by the Federal Confidentiality of Alcohol and Drug Abuse Patient Records regulations: The Federal rules restrict any use of the information to criminally investigate or prosecute any alcohol or drug abuse patient.[facility] Reason for Visit (unrecogniz ed section and content) Reason Comments New Patient Reason Comments Established Patient Reason Comments Medication Preauthorization Evenity 210m g- Denied INFORMATION SOURCE (unrecogn ized section and content) DATE CREATED AUTHOR 08/27/2024 [facility] DATE CREATED AUTHOR AUTHOR'S VIKY ATION 09/02/2024 [facility] FOR RECORDS PERTAINING TO PATIENTS WHO ARE OR HAVE BEEN ENROLLED IN A CHEMICAL DEPENDENCY/SUBSTANCEABUSE PROGRAM, SOME INFORMATION MAY BE OMITTED. This clinical summary was aggregated from multiple sources. Caution should be exercised in using it in the provision of clinical care. This summary normalizes information from multiple sources, and as a consequence, information in this document may materially change the coding, format and clinical context of patient data. In addition, data may be omitted in some cases. CLINICAL DECISIONS SHOULD BE BASED ON THE PRIMARY CLINICAL RECORDS. [facility]. provides no warranty or guarantee of the accuracy or completeness of information in this document.
--- OUTSIDE RECORDS SUMMARY | 2024-09-07 04:29 | XMS RPT_ITS | CCD ---
Author Organization [facility] Care Team Providers Care Instructor Technical Training Name Role Phone Riddhi Espinosa Unavailable Divina [...] Noreen A Unavailable Dana Weldon Unavailable Unavailable Civil Engineer In Training, System Unavailable Unavailable Sp, Dr. Michael Bates Primary Care Provider Sp, Dr. Michael Bates Referring Provider Friend, Dr. Qeuvedo Attending Provider [phone] Sp, Dr. Michael Bates Primary Care Provider [...] Richard MD Referring Provider Unavaila ble Tickton LATHMAKER-C, Audra Attending Provider Sp OROZCO, Dr. Michael Bates Primary Care Provider [phone] Sp OROZCO, Dr. Michael Bates Attending Provider [...] Rei OROZCO, Dr. Ayon Other Provider Tickdiego LATHMAKER-C, Audra Attending Provider Beatriz OROZCO, Dr. Montejo Attending Provider Beatriz OROZCO, Nikia Attending Provider Unavaila navin Henderson MD, Nikia Referring Provider Unavaila ble Noelle LATHMAKER-C, Audra Attending Provider Michael Snowden Chi Primary Care Provider [phone] Sp OROZCO, Dr. Michael Bates Primary Care Provider Sp OROZCO, Dr. Michael Bates Attending Provider Sp OROZCO, Dr. Michael Bates Referring Provider SETH CHOWDARY Attending Unavailable JOVANNI MATTHEW Referring Unavailable SP, MICHAEL CHI Primary Care Unavailable MILLIE PETTY Referring Unavailable SP, MICHAEL CHI Primary Care Unavailable AJAY GRANT Attending Unavailable JOVANNI MATTHEW Referring Unavailable SP, [...] Unavailable Sp, Michael Chi Referring Unavailable Sp, Micheal Chi Attending Unavailable Oleghe OLS, Efewongbe Attending [...] amLODIPine drug allergy 016 freezes up limbs [facility] Work Phone: (3 sources) atorvastatin drug allergy 016 muscle weakness [facility] Work Phone: (20 sources) codeine; Translations: [CODEINE] drug allergy 009 Intolerance [facility] Work Phone: (20 sources) ibuprofen; Translations: [IBUPROFEN] drug allergy 005 GI Upset [facility] Work Phone: (20 sources) lisinopril; Translations: [LISINOPRIL] drug allergy 012 Swelling, Anaphylaxis [facility] Work Phone: (3 sources) NIFEdipine drug allergy 016 freezes up limbs [facility] Work Phone: (3 sources) HCTZ drug allergy 015 low sodium [facility] Work Phone: (6 sources) NKDA drug allergy 013 [facility] Work Phone: (20 sources) Alendronate; Translations: [ALENDRONATE SODIUM] Drug Allergy 015 GI Upset, Other: See Comments [facility] (19 sources) amLODIPine Drug Allergy 022 Freezes up limbs [facility] (20 sources) atorvastatin; Translations: [ATORVASTATIN] Drug Allergy 016 Intolerance [facility] (20 sources) Doxazosin; Translations: [DOXAZOSIN] Drug Allergy 022 Other: See Comments [facility] Comment on above: VASOVAGAL (20 sources) hydroCHLOROthiazide; Translations: [HYDROCHLOROTHIAZIDE] Drug Allergy Other: See Comments [facility] (20 sources) NIFEdipine; Translations: [NIFEDIPINE] Drug Allergy Other: See Comments [facility] (1 source) HCTA Propensity to adverse reactions Low sodium [facility] Work Phone: (1 source) Ibuprofen Drug Allergy [facility] Work Phone: Comment on above: abd pain (1 source) Codeine/Codeine Derivatives; Translations: [Codeine/Codeine Derivatives] Allergy to substance (finding) [facility] Work Phone: Comment on above: Headache (1 source) Alendronate; Translations: [ALENDRONATE] Drug Allergy 015 [facility] (1 source) Alendronate Drug Allergy [facility] (1 source) amLODIPine Drug Allergy [facility] (1 source) atorvastatin Drug Allergy [facility] (1 source) Doxazosin Drug Allergy [facility] (1 source) hydroCHLOROthiazide Drug Allergy [facility] (1 source) NIFEdipine Drug Allergy [facility] Medications Current Medications Medication Drug Class(es) [...] One tablet by mouth twice daily CHOLECALCIFEROL [id number] Bret Daniels MD Start: 02-04-2012 take 2 tablets by mo [facility] once daily VITAMIN D 2000 UNIT TABS Two tablets by mouth daily CHOLECALCIFEROL [id number] Lyric Murcia RN take 1 tablet by [...] Start: 06-07-2015 COMPOUNDED PRE SCRIPTION Home Health assessment services manager, aide, PT. Dx: Bilat sprained ankles, gait instability. 1 Each 0 06/07/2015 Active docusate sodium 50 mg / ana osides, skilled nursing 8.6 mg oral tablet (17 sources) Start: [...] 05-19-2024 take 1 tablet by mouth once stacey y magnesium chloride [address] tablet [...] th twice daily TOPROL XL 25 MG [id number] One tablet by mouth twice daily METOPROLOL SUCCINATE [id number] Bret Daniels MD Start: 02-08-2013 take 1 tablet by libby th twice daily TOPROL XL 25 MG [id number] One tablet by mouth twice daily METOPROLOL SUCCINATE [id number] Lyric Murcia RN Start: 02-08-2013 take 1 tablet by libby th once daily TOPROL XL 25 MG [id number] One tablet by mouth daily METOPROLOL SUCCINATE [id number] Ashley Ernst PA-C Start: 02-08-2013 take 1 tablet by libby th twice daily TOPROL XL 25 MG [id number] One tablet by mouth twice daily METOPROLOL SUCCINATE [id number] Bret Daniels MD Start: 02-08-2013 take 1 tablet by libby th once daily TOPROL XL 50 MG [id number] One half tablet by mouth daily METOPROLOL SUCCINATE [id number] Bret Daniels MD Start: 02-08-2013 take 1 tablet by libby th twice daily TOPROL XL 25 MG [id number] One tablet by mouth twice daily METOPROLOL SUCCINATE [id number] Lyric Murcia RN Start: 02-08-2013 take 1 tablet by libby th once daily TOPROL XL 25 MG [id number] One tablet by mouth daily METOPROLOL SUCCINATE [id number] Ashley Ernst PA-C Start: 02-04-2012 take 1 tablet by libby th once daily TOPROL XL 50 MG [id number] One tablet by mouth daily METOPROLOL SUCCINATE [id number] Bret Daniels MD Start: 02-04-2012 take 1 tablet by libby th once daily TOPROL XL 50 MG [id number] One tablet by mouth daily METOPROLOL SUCCINATE [id number] Bret Daniels MD MULTIVITAMIN TAB (5 sources) [...] TABS One tablet by mouth daily CYANOCOBALAMIN [id number] Bret Daniels MD take 1 tablet by [...] tablet by mouth daily B COMPLEX VITAMINS [id number] Bret Daniels MD Start: 05-22-2014 End: 07-14-2018 [...] tablet by mouth daily B COMPLEX VITAMINS [id number] Lyric Murcia RN Start: 02-04-2012 End: 03-08-2015 take 1 tablet by mouth once daily VITAMIN B COMPLEX TABS One tablet by mouth daily B COMPLEX VITAMINS [id number] Ashley Ernst PA-C VITAMIN B COMPLEX ORAL [...] 15, 2016 12:00am July 02, 2017 2:34pm [place] (20 sources) Start: 05-25-2020 End: 02-23-2024 Start: 05-25-2020 End: 02-23-2024 Eaton 650 mg tablet Discon tinued mg PO May 25, 2020 1:00am February 23, 2024 1:42pm Start: 05-25-2020 [place] Active MG PO May 25, 2020 12:00am Start: 05-25-2020 [place] Active MG PO May 25, 2020 1:00am Start: 07-02-2017 End: 08-18-2017 Start: 07-02-2017 End: 08-18-2017 take 1 tablet by mouth once daily [place]aton 650 mg tablet Discontinued 650 mg PO daily July 02, 2017 12:00am August 18, 2017 3:35pm Start: 07-02-2017 End: 08-18-2017 take 650 mg by mouth once daily [place] Discontinued 6 50 MG PO daily July 01, 2017 11:00pm August 18, 2017 2:35pm Start: 07-02-2017 End: 08-18-2017 take 650 mg by mouth once daily [place] Discontinued 6 50 MG PO daily July 02, 2017 12:00am August 18, 2017 3:35pm Start: 02-03-2013 End: 02-10-2014 ALFALFA 650 MG TABS as neede d ALFALFA [id number] Ashley Ernst PA-C amLODIPine 2.5 mg oral [...] One tablet by mouth daily AMLODIPINE BESYLATE [id number] Bret Daniels MD Start: 08-03-2014 End: 08-05-2014 take 1 tablet by mouth once daily NORVASC 2.5 MG TABS One tablet by mouth daily AMLODIPINE BESYLATE [id number] Lyric Murcia RN amoxicillin 500 mg oral [...] One tablet by mouth daily ASCORBIC ACID [id number] Lyric Murcia RN aspirin 81 mg chewable [...] mouth four times daily as needed ASPIRIN-CAFFEINE [id number] Lyric Murcia RN Start: 08-03-2014 take 2 tablets by mo uth four times daily as needed ANACIN 400-32 MG TABS Two tablets by mouth four times daily as needed ASPIRIN-CAFFEINE [id number] Lyric Murcia RN Start: 08-03-2014 take 2 [...] ANACIN 400-32 MG TABS as needed ASPIRIN-CAFFEINE [id number] Elenita Villalobos RN Start: 02-03-2013 End: 02-10-2014 ANACIN 400-32 MG TABS as nee ded ASPIRIN-CAFFEINE [id number] Ashley Ernst PA-C Start: 02-03-2013 End: 02-10-2014 ANACIN 400-32 MG TABS as nee ded ASPIRIN-CAFFEINE Ashley Ernst PA-C Start: 02-03-2013 ANACIN 400-32 MG TABS as needed ASPIRIN-CAFFEINE Elenita Villalobos RN atorvastatin 20 mg oral tablet (6 sources) HMG-CoA Reductase Inhibitor Start: 03-01-2015 End: 04-26-2015 take 1 tablet by mouth once daily ATORVASTATIN CALCIUM 20 MG TABS One tablet by mouth daily ATORVASTATIN CALCIUM [id number] Jessica Smith RN azaTHIOprine 100 mg injection (6 sources) Purine Antimetabolite Start: 03-01-2015 End: 03-08-2015 take 1 tablet by mouth once daily AZASAN 100 MG TABS One tablet by mouth daily AZATHIOPRINE 74137531093 Lyric Murcia RN biotin (6 sources) Start: 02-04-2012 End: 02-08-2013 take 1 tablet by mouth once daily BIOTIN FORTE TABS One tablet by mouth daily BIOTIN TABS [id number] Ashley Ernst PA-C Start: 02-04-2012 take 1 tablet by libby th once daily BIOTIN FORTE TABS One tablet by mouth daily BIOTIN TABS [id number] Bret Daniels MD CALCIUM-MAGNESIUM TABS (3 sources) Start: 02-04-2012 take 2 tablets by mouth once daily THERESE-MAG TABS Two tablets by mouth daily CALCIUM-MAGNESIUM TABS [id number] Bret Daniels MD CATALYN (3 sources) Start: [...] One half tablet by mouth daily CHLORTHALIDONE [id number] Marielle Susan DELGADILLO Start: 05-22-2014 End: 05-23-2014 [...] TABS One tablet by mouth daily HYDROCHLOROTHIAZIDE [id number] Bret Daniels MD lactulose 667 mg/ml oral solution (20 sources) Osmotic Laxative Start: 2020 End: 2022 Start: 03-01-2015 LACTULOSE 10 G M/15ML SOLN 30 cc (20 gm) by mouth daily as needed LACTULOSE [id number] Bret Daniels MD Start: 11-14-2014 End: 07-15-2016 [...] at bedtime 250mg tablets MAGNESIUM OXIDE CAPS [id number] Bret Daniels MD Start: 08-13-2013 MAGNESIUM OXID E CAPS 4 tablets at bedtime MAGNESIUM OXIDE CAPS [id number] Bret Daniels MD melatonin 3 mg oral [...] One tablet by mouth daily MULTIPLE VITAMIN [id number] Bret Daniels MD Xfdcxtsfzxou-St-Knst- Minerals (13 sources) Start: 02-16-2015 End: 07-02-2017 take 1 tablet by mouth once daily Lutdjsbqtktj-Bj-Ywfx-Mine rals Discontinued 1 TABLET PO DAILY February 16, 2015 12:00am July 02, 2017 1:34pm Start: 02-16-2015 End: 07-02-2017 take 1 tablet by mouth once daily Nmwnnjyutkle-Sa-Makr-Minerals Discontinu ed 1 TABLET PO DAILY February 16, 2015 1:00am July 02, 2017 2:34pm Yxmfmggkurab-Xm-Kqat-Mineral s 1 EACH tablet (2 sources) Start: 02-16-2015 End: 07-02-2017 take 1 tablet by mouth once daily Wxjhpygnzqkk-Eh-Acxt-Minerals 1 EACH tablet Discontinued 1 {tbl} PO DAILY February 16, 2015 1:00am July 02, 2017 2:34pm naproxen 250 mg oral tablet (6 sources) Nonster oidal Anti-in flammat ory Drug Start: 08-03-2014 End: 08-05-2014 take 1 tablet by mouth three times daily as needed NAPROXEN 250 MG TABS One tablet by mouth three times daily as needed NAPROXEN [id number] Bret Daniels MD nitrofurantoin, macrocrystal s 25 [...] 04-16-2024 End: 05-31-2024 take 1 capsule by [facility] every four hours as needed oxyCODONE [...] One tablet by mouth daily PANTOPRAZOLE SODIUM [id number] Bret Daniels MD Start: 03-01-2015 take 1 tablet by [facility] twice daily PROTONIX 40 MG TBEC One tablet by mouth twice daily PANTOPRAZOLE SODIUM 45029803024 Lyric Murcia RN potassium chloride 10 meq ex tended release oral tablet (20 sources) Start: 05-04-2013 End: 11-14-2014 Start: 02-08-2013 End: 03-01-2015 take 1 tablet by mouth once daily KLOR-CON M20 20 MEQ CR-TABS One tablet by mouth daily POTASSIUM CHLORIDE IRMA CR [id number] Lyric Murcia RN Start: 02-08-2013 take 1 tablet by libby th once daily KLOR-CON M20 20 MEQ CR-TABS One tablet by mouth daily POTASSIUM CHLORIDE IRMA CR [id number] Ashley Ernst PA-C Start: 02-08-2013 take 1 tablet by libby th once daily KLOR-CON M20 20 MEQ CR-TABS One tablet by mouth daily POTASSIUM CHLORIDE IRMA CR [id number] Ashley Ernst PA-C Start: 02-08-2013 End: 03-01-2015 take 1 tablet by mouth once daily KLOR-CON M20 20 MEQ CR-TABS One tablet by mouth daily POTASSIUM CHLORIDE IRMA CR [id number] Lyric Murcia RN Start: 08-13-2012 take 1 tablet by libby th twice daily KLOR-CON M20 20 MEQ CR-TABS One tablet by mouth twice daily POTASSIUM CHLORIDE IRMA CR [id number] Lyric Murcia RN Start: 08-13-2012 take 1 tablet by libby th twice daily KLOR-CON M20 20 MEQ CR-TABS One tablet by mouth twice daily POTASSIUM CHLORIDE IRMA CR [id number] Lyric Murcia RN predniSONE 10 mg oral tablet (9 sources) Corticosteroid Start: 03-01-2015 End: 03-08-2015 take 1 tablet by mouth once daily PREDNISONE 10 MG TABS One tablet by mouth daily PREDNISONE 25255345028 Ashley Ernst PA-C sulfamethoxazole 800 mg / [...] 1:00am May 19, 2024 9:05pm vitamin a 18930 unt oral capsule (19 sources) Vitamin A [...] TABS Three tablets by mouth daily CHOLECALCIFEROL [id number] Bret Daniles MD Start: 02-04-2012 take 3 tablets by mo [facility] once daily VITAMIN D 1000 UNIT TABS Three tablets by mouth daily CHOLECALCIFEROL [id number] Bret Daniels MD Zypan (15 sources) Start: [...] Auto (Unsp spec) [#/Vol] 1.65 10*3/uL 0.83-4.51 [facility] Anion gap in Serum or Plasma Ordered By: Nikia Henderson on 08-24-2024 Anion gap [Moles/Vol] 9 mmol/L -15 [facility] Automated lymphocyte count a s percentage of total leukocytesOrdered By: Nikia Henderson on 08-24-2024 Lymphocytes/100 WBC Auto (Unsp spec) 25.9 % - [facility] BUN/creatinine ratioOrdered By: Nikia Henderson on 08-24-2024 Urea nitrogen/Creatinine [Mass ratio] 20.0 mg/mg 10-20 [facility] Basophil percentageOrdered B y: Cecilialaura Cristobaljanicevioletta on 08-24-2024 Basophils/100 WBC (Bld) 0.6 % 0-1 [facility] Carbon dioxide, total [Moles /volume] in Central venous bloodOrdered By: Nikia Henderson on 08-24-2024 CO2 [Moles/Vol] 26.4 mmol/L 21.0-32.0 [facility] Chloride assayOrdered By: Cecilia guanakoterra Henderson on 08-24-2024 Chloride [Moles/Vol] 107 mmol/L 98-108 [facility] Eosinophil percentageOrdered By: Cecilialaura Jainjanicevioletta on 08-24-2024 Eosinophils/100 WBC (Bld) 2.5 % 0-5 [facility] Erythrocyte distribution wid th ratioOrdered By: Nikia Henderson on 08-24-2024 Erythrocyte distribution width (RBC) [Ratio] 13.1 % 11.6-14.6 [facility] Erythrocyte distribution wid th standard deviationOrdered By: guanakopie townheladio Henderson on 08-24-2024 Erythrocyte distribution width (RBC) [Ratio] 49.5 fl High 35.1-43.9 [facility] Glomerular filtration rate ( GFR) estimation/1.73 sq m using serum, plasma, or whole bOrdered By: Nikia Henderson on 08-24-2024 GFR/1.73 sq M.predicted among non-blacks MDRD (S/P/Bld) [Vol rate/Area] 80 mL/min/{1.73_m2} >60 [facility] Hematocrit Auto (Bld) [Volum e fraction]Ordered By: Nikia Henderson on 08-24-2024 Hematocrit (Bld) [Volume fraction] 36.3 % Low 37-47 [facility] Hemoglobin measurementOrdere d By: Nikia Henderson on 08-24-2024 Hemoglobin (Bld) [Mass/Vol] 11.7 g/dL Low 12.0-15. 0 [facility] Immature granulocytes/100 WB C Auto (Bld)Ordered By: Nikia Henderson on 08-24-2024 Immature granulocytes/100 WBC (Bld) 0.300 % 0.0-0.9 [facility] MCV (mean corpuscular volume ) determinationOrdered By: Nikia Henderson on 08-24-2024 MCV (RBC) [Entitic vol] 102.0 fL High 81-99 [facility] Mean corpuscular hemoglobin (MCH) determinationOrdered By: Nikia Henderson on 08-24-2024 MCH (RBC) [Entitic mass] 32.9 pg High 27.0-32.0 [facility] Monocyte percentageOrdered B y: Nikia Henderson on 08-24-2024 Monocytes/100 WBC (Bld) 10.0 % 0-10 [facility] Neutrophil percentageOrdered By: Nikia Henderson on 08-24-2024 Neutrophils/100 WBC (Bld) 60.7 % 47-70 [facility] Platelet countOrdered By: Cecilia Henderson on 08-24-2024 Platelets (Bld) [#/Vol] 227 10*3/uL 150-450 [facility] Potassium measurement (mass/ volume)Ordered By: Nikia Henderson on 08-24-2024 Potassium (Unsp spec) [Mass/Vol] 4.1 mmol/L 3.3-5.1 [facility] RBC Auto (Bld) [#/Vol]Ordere d By: Nikia Henderson on 08-24-2024 RBC (Bld) [#/Vol] 3.56 10*6/uL Low 4.2-5.4 [facility] Serum creatinine measurement (mass/volume)Ordered By: Nikia Henderson on 08-24-2024 Creatinine [Mass/Vol] 0.76 mg/dL 0.70-1.20 [facility] Serum glucose measurement (m ass/volume)Ordered By: Nikia Henderson on 08-24-2024 Glucose [Mass/Vol] 88 mg/dL 70-[address] [facility] Serum or plasma calcium gianluca urement (mass/volume)Ordered By: Nikia Henderson on 08-24-2024 Calcium [Mass/Vol] 9.0 mg/dL 7.6-11.[address] [facility] Serum or plasma urea nitroge n measurement (mass/volume)Ordered By: [facility] on 08-24-2024 Urea nitrogen [Mass/Vol] 15 mg/dL 4-19 [facility] Sodium levelOrdered By: [facility] terra Henderson on 08-24-2024 Sodium [Moles/Vol] 142 mmol/L 133-[address] [facility] White blood cell (WBC) count Ordered By: [facility] Cristobalvioletta on 08-24-2024 WBC (Bld) [#/Vol] 6.4 10*3/uL 4.4-11.[address] [facility] CNPNon 08-22-2024 CNPN Telephone (EMQ) LIZETTE DAVIES ([id number]) 1945 F Date Time Provider Department 08/22/24 [...] your request via staff message to the [employer] Auth Appeals Pool ([id number]). You can find templates listed below to support your appeal in [employer] (Epic drop down, select patient care, select send letter). If it is an urgent request, you can email the [employer] auth Team at [email or web address]. Please make sure the documents below are completed in order to process your request. If the appeal is denied, do you want to schedule a peer to peer Yes/No. We will schedule peer to peer automatically if yes. Thank You, Jorje Chandra Auth Appeals Team Jorje GRIFFIN Appeal letter Jorje GRIFFIN Letter of Medical Necessity Jorje Hernandez Prior [facility] [employer] Endocrinology AND Metabolism Kenedy Letter scanned into chart Allergies As of [...] by mouth once daily. - COMPOUNDED PRESCRIPTION [email or web address] defense 17 drops daily and working up to 60 drops daily (in divided doses). Serving size 30 drops. 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 Dx: Bilat sprained ankles, gait [...] NOS [K92.2] 03/08/2005 MYALGIA AND MYOSITIS NOS [TAP8097] 09/02/2005 CONGENITAL PES PLANUS [Q66.50] 06/29/2007 Tibialis Tendinitis [M76.829] 10/19/2007 Generalized Osteoarthrosis, Unspecified Site [M*04/05/2008 Contact Dermatitis and Other Eczema, due to Uns*04/05/2008 Morbid obesity with BMI of 40.0-44.9, adult (HC* 01/25/2016 Low back pain [M54.50] 12/14/2013 Numbness and tingling in hands [R20.0, R20.2] 12/14/2013 Spinal cord lesion (HCC) [G95.9] 12/14/2013 Neck pain [M54.2] (more content not included)... Normal [facility] Absolute lymphocyte countOrd ered By: Nikia Henderson on 08-17-2024 Lymphocytes Auto (Unsp spec) [#/Vol] 1.53 10*3/uL 0.83-4.51 [facility] Anion gap in Serum or Plasma Ordered By: Nikia Henderson on 08-17-2024 Anion gap [Moles/Vol] 10 mmol/L 5-15 [facility] Automated lymphocyte count a s percentage of total leukocytesOrdered By: Nikia Henderson on 08-17-2024 Lymphocytes/100 WBC Auto (Unsp spec) 26.2 % 19-41 [facility] BUN/creatinine ratioOrdered By: Nikia Henderson on 08-17-2024 Urea nitrogen/Creatinine [Mass ratio] 20.9 mg/mg High 10-20 [facility] Basophil percentageOrdered B y: Nikia Henderson on 08-17-2024 Basophils/100 WBC (Bld) 0.9 % 0-1 [facility] Carbon dioxide, total [Moles /volume] in Central venous bloodOrdered By: Nikia Henderson on 08-17-2024 CO2 [Moles/Vol] 26.8 mmol/L 21.0-32.0 [facility] Chloride assayOrdered By: Cecilia Henderson on 08-17-2024 Chloride [Moles/Vol] 106 mmol/L 98-108 [facility] Eosinophil percentageOrdered By: Nikia Henderson on 08-17-2024 Eosinophils/100 WBC (Bld) 2.1 % 0-5 [facility] Erythrocyte distribution wid th ratioOrdered By: Nikia Henderson on 08-17-2024 Erythrocyte distribution width (RBC) [Ratio] 13.4 % 11.6-14.6 [facility] Erythrocyte distribution wid th standard deviationOrdered By: Nikia Henderson on 08-17-2024 Erythrocyte distribution width (RBC) [Ratio] 50.2 fl High 35.1-43.9 [facility] Glomerular filtration rate ( GFR) estimation/1.73 sq m using serum, plasma, or whole bOrdered By: Nikia Henderson on 08-17-2024 GFR/1.73 sq M.predicted among non-blacks MDRD (S/P/Bld) [Vol rate/Area] 90 mL/min/{1.73_m2} >60 [facility] Hematocrit Auto (Bld) [Volum e fraction]Ordered By: [facility] Henderson on 08-17-2024 Hematocrit (Bld) [Volume fraction] 34.6 % Low 37-47 [facility] Hemoglobin measurementOrdere d By: Nikia Henderson on 08-17-2024 Hemoglobin (Bld) [Mass/Vol] 11.2 g/dL Low 12.0-15. 0 [facility] Immature granulocytes/100 WB C Auto (Bld)Ordered By: Nikia Henderson on 08-17-2024 Immature granulocytes/100 WBC (Bld) 0.500 % 0.0-0.9 [facility] MCV (mean corpuscular volume ) determinationOrdered By: Nikia Henderson on 08-17-2024 MCV (RBC) [Entitic vol] 102.7 fL High 81-99 [facility] Mean corpuscular hemoglobin (MCH) determinationOrdered By: [facility] on 08-17-2024 MCH (RBC) [Entitic mass] 33.2 pg High 27.0-32.0 [facility] Monocyte percentageOrdered B y: Nikia Henderson on 08-17-2024 Monocytes/100 WBC (Bld) 9.8 % 0-10 [facility] Neutrophil percentageOrdered By: [facility] on 08-17-2024 Neutrophils/100 WBC (Bld) 60.5 % 47-70 [facility] Platelet countOrdered By: Cecilia Henderson on 08-17-2024 Platelets (Bld) [#/Vol] 235 10*3/uL 150-450 [facility] Potassium measurement (mass/ volume)Ordered By: Nikia Henderson on 08-17-2024 Potassium (Unsp spec) [Mass/Vol] 3.9 mmol/L 3.3-5.1 [facility] RBC Auto (Bld) [#/Vol]Ordere d By: Nikia Henderson on 08-17-2024 RBC (Bld) [#/Vol] 3.37 10*6/uL Low 4.2-5.4 [facility] Serum creatinine measurement (mass/volume)Ordered By: Nikia Henderson on 08-17-2024 Creatinine [Mass/Vol] 0.66 mg/dL Low 0.70-1.20 [facility] Serum glucose measurement (m ass/volume)Ordered By: Nikia Henderson on 08-17-2024 Glucose [Mass/Vol] 84 mg/dL 70-[address] [facility] Serum or plasma calcium gianluca urement (mass/volume)Ordered By: Nikia Henderson on 08-17-2024 Calcium [Mass/Vol] 9.1 mg/dL 7.6-11.[address] [facility] Serum or plasma urea nitroge n measurement (mass/volume)Ordered By: Nikia Henderson on 08-17-2024 Urea nitrogen [Mass/Vol] 14 mg/dL 4-19 [facility] Sodium levelOrdered By: Catalina connerling Beatriz on 08-17-2024 Sodium [Moles/Vol] 143 mmol/L 133-[address] [facility] White blood cell (WBC) count Ordered By: Nikia Henderson on 08-17-2024 WBC (Bld) [#/Vol] 5.8 10*3/uL 4.4-11.[address] [facility] CNOVon 08-13-2024 CNOV Office Visit (SPNSMN ) LIZETTE DAVIES ([id number]) 1945 F Date Time Provider Department 08/13/24 8:00 AM SETH CHOWDARY SPNSMN During your visit today, we recorded the following information about you: Pulse Respiration Blood pressure Weight 98/minute 18/minute 148/103 68 kg Height 1.473 m Seth Chowdary MD 08/13/2024 8:45 AM Signed SPINE SURGERY OUTPATIENT CONSULT This is an in-person visit. SERVICE DATE: 08/13/2024 PCP: Michael Snowden MD REFERRING PROVIDER: Jovanni Matthew [address] [facility] [address] Lizette Davies is a 78 year old [...] walked recently and [facility]. She does not report bowel or [...] type O+ Compression fracture of thoracic vertebra ([facility]) DDD (degenerative disc disease), cervical MRI scanned into [facility] January 11, 2014 ([facility]) DDD (degenerative disc disease), lumbosacral Essential hypertension, [...] DIAGNOSTIC 02/16/15 (more content not included)... Normal [facility] Absolute lymphocyte countOrd ered By: Nikia Henderson on 08-10-2024 Lymphocytes Auto (Unsp spec) [#/Vol] 1.61 10*3/uL 0.83-4.51 [facility] Anion gap in Serum or Plasma Ordered By: Nikia Henderson on 08-10-2024 Anion gap [Moles/Vol] 10 mmol/L 5-15 [facility] Automated lymphocyte count a s percentage of total leukocytesOrdered By: Nikia Henderson on 08-10-2024 Lymphocytes/100 WBC Auto (Unsp spec) 28.1 % 19-41 [facility] BUN/creatinine ratioOrdered By: Nikia Henderson on 08-10-2024 Urea nitrogen/Creatinine [Mass ratio] 19.5 mg/mg 10-20 [facility] Basophil percentageOrdered B y: Nikia Henderson on 08-10-2024 Basophils/100 WBC (Bld) 0.9 % 0-1 [facility] Carbon dioxide, total [Moles /volume] in Central venous bloodOrdered By: Nikia Henderson on 08-10-2024 CO2 [Moles/Vol] 24.9 mmol/L 21.0-32.0 [facility] Chloride assayOrdered By: Cecilia Henderson on 08-10-2024 Chloride [Moles/Vol] 106 mmol/L 98-108 [facility] Eosinophil percentageOrdered By: Nikia Henderson on 08-10-2024 Eosinophils/100 WBC (Bld) 3.0 % 0-5 [facility] Erythrocyte distribution wid th ratioOrdered By: Nikia Henderson on 08-10-2024 Erythrocyte distribution width (RBC) [Ratio] 13.6 % 11.6-14.6 [facility] Erythrocyte distribution wid th standard deviationOrdered By: Nikia Henderson on 08-10-2024 Erythrocyte distribution width (RBC) [Ratio] 51.5 fl High 35.1-43.9 [facility] Glomerular filtration rate ( GFR) estimation/1.73 sq m using serum, plasma, or whole bOrdered By: laura Henderson on 08-10-2024 GFR/1.73 sq M.predicted among non-blacks MDRD (S/P/Bld) [Vol rate/Area] 92 mL/min/{1.73_m2} >60 [facility] Hematocrit Auto (Bld) [Volum e fraction]Ordered By: [facility] on 08-10-2024 Hematocrit (Bld) [Volume fraction] 35.1 % Low 37-47 [facility] Hemoglobin measurementOrdere d By: laura Henderson on 08-10-2024 Hemoglobin (Bld) [Mass/Vol] 11.3 g/dL Low 12.0-15. 0 [facility] Immature granulocytes/100 WB C Auto (Bld)Ordered By: [place] townheladio Henderson on 08-10-2024 Immature granulocytes/100 WBC (Bld) 0.200 % 0.0-0.9 [facility] MCV (mean corpuscular volume ) determinationOrdered By: Nikia Henderson on 08-10-2024 MCV (RBC) [Entitic vol] 103.2 fL High 81-99 [facility] Mean corpuscular hemoglobin (MCH) determinationOrdered By: [facility] Cristobalvioletta 08-10-2024 MCH (RBC) [Entitic mass] 33.2 pg High 27.0-32.0 [facility] Monocyte percentageOrdered B y: [place] townheladio Henderson on 08-10-2024 Monocytes/100 WBC (Bld) 9.3 % 0-10 [facility] Neutrophil percentageOrdered By: [facility] Cristobalvioletta on 08-10-2024 Neutrophils/100 WBC (Bld) 58.5 % 47-70 [facility] Platelet countOrdered By: laura Jainvioletta on 08-10-2024 Platelets (Bld) [#/Vol] 233 10*3/uL 150-450 [facility] Potassium measurement (mass/ volume)Ordered By: Cecilialaura Henderson on 08-10-2024 Potassium (Unsp spec) [Mass/Vol] 4.0 mmol/L 3.3-5.1 [facility] RBC Auto (Bld) [#/Vol]Ordere d By: Onelheladio Jainjanicevioletta on 08-10-2024 RBC (Bld) [#/Vol] 3.40 10*6/uL Low 4.2-5.4 [facility] Serum creatinine measurement (mass/volume)Ordered By: Cecilialaura Henderson on 08-10-2024 Creatinine [Mass/Vol] 0.59 mg/dL Low 0.70-1.20 [facility] Serum glucose measurement (m ass/volume)Ordered By: Nikia Henderson on 08-10-2024 Glucose [Mass/Vol] 80 mg/dL 70-[address] [facility] Serum or plasma calcium gianluca urement (mass/volume)Ordered By: Cecilialaura Jainjanicevioletta on 08-10-2024 Calcium [Mass/Vol] 9.0 mg/dL 7.6-11.[address] [facility] Serum or plasma urea nitroge n measurement (mass/volume)Ordered By: Ceciliaguanakofedeheladio Jainjanicevioletta on 08-10-2024 Urea nitrogen [Mass/Vol] 11 mg/dL 4-19 [facility] Sodium levelOrdered By: Catalina ellison Cristobaljanicevioletta on 08-10-2024 Sodium [Moles/Vol] 141 mmol/L 133-[address] [facility] White blood cell (WBC) count Ordered By: Nikia Henderson on 08-10-2024 WBC (Bld) [#/Vol] 5.7 10*3/uL 4.4-11.[address] [facility] Absolute lymphocyte countOrd ered By: Audra Drake on 08-03-2024 Lymphocytes Auto (Unsp spec) [#/Vol] 1.37 10*3/uL 0.83-4.51 [facility] Anion gap in Serum or Plasma Ordered By: Audra Drake on 08-03-2024 Anion gap [Moles/Vol] 8 mmol/L 5-15 [facility] Automated lymphocyte count a s percentage of total leukocytesOrdered By: Audra Drake on 08-03-2024 Lymphocytes/100 WBC Auto (Unsp spec) 23.5 % 19-41 [facility] BUN/creatinine ratioOrdered By: Audra Drake on 08-03-2024 Urea nitrogen/Creatinine [Mass ratio] 18.8 mg/mg 10-20 [facility] Basophil percentageOrdered B y: Audra Drake on 08-03-2024 Basophils/100 WBC (Bld) 0.9 % 0-1 [facility] Bilirubin directOrdered By: Audra Drake on 08-03-2024 Bilirubin.direct [Mass/Vol] 0.10 mg/dL 0.00-0.3 0 [facility] Bilirubin, totalOrdered By: Audra Drake on 08-03-2024 Bilirubin [Mass/Vol] 0.17 mg/dL 0.00-1.30 [facility] Carbon dioxide, total [Moles /volume] in Central venous bloodOrdered By: Audra Drake on 08-03-2024 CO2 [Moles/Vol] 24.9 mmol/L 21.0-32.0 [facility] Chloride assayOrdered By: Dimitris Drake on 08-03-2024 Chloride [Moles/Vol] 107 mmol/L 98-108 [facility] Eosinophil percentageOrdered By: Audra Drake on 08-03-2024 Eosinophils/100 WBC (Bld) 2.6 % 0-5 [facility] Erythrocyte distribution wid th ratioOrdered By: Audra Drake on 08-03-2024 Erythrocyte distribution width (RBC) [Ratio] 13.9 % 11.6-14.6 [facility] Erythrocyte distribution wid th standard deviationOrdered By: Audra Drake on 08-03-2024 Erythrocyte distribution width (RBC) [Ratio] 52.4 fl High 35.1-43.9 [facility] Folate [Moles/volume] in Ser um or PlasmaOrdered By: Audra Drake on 08-03-2024 Folate [Moles/Vol] 36.80 ng/mL High 4.60-34.80 [facility] Glomerular filtration rate ( GFR) estimation/1.73 sq m using serum, plasma, or whole bOrdered By: Audra Drake on 08-03-2024 GFR/1.73 sq M.predicted among non-blacks MDRD (S/P/Bld) [Vol rate/Area] 87 mL/min/{1.73_m2} >60 [facility] Hematocrit Auto (Bld) [Volum e fraction]Ordered By: Audra Drake on 08-03-2024 Hematocrit (Bld) [Volume fraction] 33.6 % Low 37-47 [facility] Hemoglobin measurementOrdere d By: Audra Darke on 08-03-2024 Hemoglobin (Bld) [Mass/Vol] 11.0 g/dL Low 12.0-15. 0 [facility] Immature granulocytes/100 WB C Auto (Bld)Ordered By: Audra Drake on 08-03-2024 Immature granulocytes/100 WBC (Bld) 0.300 % 0.0-0.9 [facility] MCV (mean corpuscular volume ) determinationOrdered By: Audra Drake on 08-03-2024 MCV (RBC) [Entitic vol] 103.7 fL High 81-99 [facility] Magnesium measurement (mass/ volume)Ordered By: Audra Drake on 08-03-2024 Magnesium (Unsp spec) [Mass/Vol] 2.3 mg/dL High 1.5-2.2 [facility] Mean corpuscular hemoglobin (MCH) determinationOrdered By: Audra Drake on 08-03-2024 MCH (RBC) [Entitic mass] 34.0 pg High 27.0-32.0 [facility] Monocyte percentageOrdered B y: Audra Drake on 08-03-2024 Monocytes/100 WBC (Bld) 10.3 % High 0-10 [facility] Neutrophil percentageOrdered By: Audra Drake on 08-03-2024 Neutrophils/100 WBC (Bld) 62.4 % 47-70 [facility] No Panel InformationOrdered By: Audra Drake on 08-03-2024 21 U/L <32 [facility] Platelet countOrdered By: Dimitris Drake on 08-03-2024 Platelets (Bld) [#/Vol] 243 10*3/uL 150-450 [facility] Potassium measurement (mass/ volume)Ordered By: Audra Drake on 08-03-2024 Potassium (Unsp spec) [Mass/Vol] 4.4 mmol/L 3.3-5.1 [facility] RBC Auto (Bld) [#/Vol]Ordere d By: Audra Drake on 08-03-2024 RBC (Bld) [#/Vol] 3.24 10*6/uL Low 4.2-5.4 [facility] Serum creatinine measurement (mass/volume)Ordered By: Audra Drake on 08-03-2024 Creatinine [Mass/Vol] 0.71 mg/dL 0.70-1.20 [facility] Serum globulin measurementOr dered By: Audra Drake on 08-03-2024 Globulin (S) [Mass/Vol] 3.0 g/dL 2.2-4.2 [facility] Serum glucose measurement (m ass/volume)Ordered By: Audra Drake on 08-03-2024 Glucose [Mass/Vol] 89 mg/dL 70-[address] [facility] Serum or plasma alanine kim otransferase (ALT) measurementOrdered By: Audra Drake on 08-03-2024 ALT [Catalytic activity/Vol] 15 U/L <35 [facility] Serum or plasma albumin gianluca urement (mass/volume)Ordered By: Audra Drake on 08-03-2024 Albumin [Mass/Vol] 3.2 g/dL Low 3.4-4.[address] [facility] Serum or plasma alkaline nikole sphatase measurementOrdered By: Audra Drake on 08-03-2024 ALP [Catalytic activity/Vol] 85 U/L 35-104 [facility] Serum or plasma calcium gianluca urement (mass/volume)Ordered By: Audra Drake on 08-03-2024 Calcium [Mass/Vol] 8.8 mg/dL 7.6-11.[address] [facility] Serum or plasma urea nitroge n measurement (mass/volume)Ordered By: Audra Drake on 08-03-2024 Urea nitrogen [Mass/Vol] 13 mg/dL 4-19 [facility] Sodium levelOrdered By: Cony Drake on 08-03-2024 Sodium [Moles/Vol] 140 mmol/L 133-[address] [facility] Total proteinOrdered By: Rubin Drake on 08-03-2024 Protein [Mass/Vol] 6.2 g/dL 5.9-8.[address] [facility] Vitamin B12 ser/plasOrdered By: Audra Drake on 08-03-2024 Cobalamin (Vitamin B12) [Mass/Vol] 1509 pg/mL High 180-914 [facility] White blood cell (WBC) count Ordered By: Audra Drake on 08-03-2024 WBC (Bld) [#/Vol] 5.8 10*3/uL 4.4-11.[address] [facility] Absolute lymphocyte countOrd ered By: Audra Drake on 07-27-2024 Lymphocytes Auto (Unsp spec) [#/Vol] 1.57 10*3/uL 0.83-4.51 [facility] Anion gap in Serum or Plasma Ordered By: Audra Drake on 07-27-2024 Anion gap [Moles/Vol] 9 mmol/L 5-15 [facility] Automated lymphocyte count a s percentage of total leukocytesOrdered By: Audra Drake on 07-27-2024 Lymphocytes/100 WBC Auto (Unsp spec) 26.8 % 19-41 [facility] BUN/creatinine ratioOrdered By: Audra Drake on 07-27-2024 Urea nitrogen/Creatinine [Mass ratio] 19.1 mg/mg 10-20 [facility] Basophil percentageOrdered B y: Audra Drake on 07-27-2024 Basophils/100 WBC (Bld) 0.7 % 0-1 [facility] Carbon dioxide, total [Moles /volume] in Central venous bloodOrdered By: Audra Drake on 07-27-2024 CO2 [Moles/Vol] 24.8 mmol/L 21.0-32.0 [facility] Chloride assayOrdered By: Dimitris Drake on 07-27-2024 Chloride [Moles/Vol] 106 mmol/L 98-108 [facility] Eosinophil percentageOrdered By: Audra Drake on 07-27-2024 Eosinophils/100 WBC (Bld) 2.4 % 0-5 [facility] Erythrocyte distribution wid th ratioOrdered By: Audra Drake on 07-27-2024 Erythrocyte distribution width (RBC) [Ratio] 14.1 % 11.6-14.6 [facility] Erythrocyte distribution wid th standard deviationOrdered By: Audra Drake on 07-27-2024 Erythrocyte distribution width (RBC) [Ratio] 53.5 fl High 35.1-43.9 [facility] Glomerular filtration rate ( GFR) estimation/1.73 sq m using serum, plasma, or whole bOrdered By: Audra Drake on 07-27-2024 GFR/1.73 sq M.predicted among non-blacks MDRD (S/P/Bld) [Vol rate/Area] 90 mL/min/{1.73_m2} >60 [facility] Hematocrit Auto (Bld) [Volum e fraction]Ordered By: Audra Drake on 07-27-2024 Hematocrit (Bld) [Volume fraction] 33.1 % Low 37-47 [facility] Hemoglobin measurementOrdere d By: Audra Drake on 07-27-2024 Hemoglobin (Bld) [Mass/Vol] 11.0 g/dL Low 12.0-15. 0 [facility] Immature granulocytes/100 WB C Auto (Bld)Ordered By: Audra Draek on 07-27-2024 Immature granulocytes/100 WBC (Bld) 0.500 % 0.0-0.9 [facility] MCV (mean corpuscular volume ) determinationOrdered By: Audra Drake on 07-27-2024 MCV (RBC) [Entitic vol] 103.4 fL High 81-99 [facility] Mean corpuscular hemoglobin (MCH) determinationOrdered By: Audra Drake on 07-27-2024 MCH (RBC) [Entitic mass] 34.4 pg High 27.0-32.0 [facility] Monocyte percentageOrdered B y: Audra Drake on 07-27-2024 Monocytes/100 WBC (Bld) 10.4 % High 0-10 [facility] Neutrophil percentageOrdered By: Audra Drake on 07-27-2024 Neutrophils/100 WBC (Bld) 59.2 % 47-70 [facility] Platelet countOrdered By: Dimitris Drake on 07-27-2024 Platelets (Bld) [#/Vol] 282 10*3/uL 150-450 [facility] Potassium measurement (mass/ volume)Ordered By: Audra Drake on 07-27-2024 Potassium (Unsp spec) [Mass/Vol] 4.3 mmol/L 3.3-5.1 [facility] RBC Auto (Bld) [#/Vol]Ordere d By: Audra Drake on 07-27-2024 RBC (Bld) [#/Vol] 3.20 10*6/uL Low 4.2-5.4 [facility] Serum creatinine measurement (mass/volume)Ordered By: Audra Drake on 07-27-2024 Creatinine [Mass/Vol] 0.65 mg/dL Low 0.70-1.20 [facility] Serum glucose measurement (m ass/volume)Ordered By: Audra Drake on 07-27-2024 Glucose [Mass/Vol] 90 mg/dL 70-[address] [facility] Serum or plasma calcium gianluca urement (mass/volume)Ordered By: Audra Drake on 07-27-2024 Calcium [Mass/Vol] 8.9 mg/dL 7.6-11.[address] [facility] Serum or plasma urea nitroge n measurement (mass/volume)Ordered By: Audra Drake on 07-27-2024 Urea nitrogen [Mass/Vol] 12 mg/dL 4-19 [facility] Sodium levelOrdered By: Cony Drake on 07-27-2024 Sodium [Moles/Vol] 140 mmol/L 133-[address] [facility] White blood cell (WBC) count Ordered By: Audra Drake on 07-27-2024 WBC (Bld) [#/Vol] 5.9 10*3/uL 4.4-11.[address] [facility] CNPNon 07-22-2024 CNPN Telephone (ENDOMN) LIZETTE DAVIES ([id number]) 1945 F Date Time Provider Department 07/22/24 [...] mouth once daily. - COMPOUNDED PRESCRIPTION [employer] defense 17 drops daily and working up to 60 drops daily (in divided doses). Serving size 30 drops. 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 Normal [facility] 1,25-dihydroxyvitamin D3 [Ma ss/Vol]on 07-21-2024 VIT D1,25 DIHYDROXY 34.0 pg/mL Normal 19.9-79.3 [facility] Comment on above: Order Comment: Speci men Type: BLOOD SPECIMEN Ordering Facility: [facility] Address: [address] [place] [address] Performed By: #### 1 989-3, 1649-3 #### [facility] CLIA [id number] [address] [place] [address] [place] [address] [place] 25(OH)D3 SerPl-mCncon 2024 25-hydroxyvitamin D3 [Mass/Vol] 65.9 ng/mL Normal 31.0-80.0 [facility] Comment on above: Order Comment: Speci men Type: BLOOD SPECIMEN Ordering Facility: [facility] Address: [address] [place] [address] Result Comment: Clas sification of 25 OH Vitamin D status: Deficiency/Insufficiency: < or = 30 ng/ml. Sufficiency/Optimal Levels: 31-80 ng/mL Toxicity: > 100 ng/mL. Test performed by chemiluminescent immunoassay. Performed By: #### 1 989-3, 1649-3 #### [facility] CLIA [id number] [address] [place] [address] OF [facility] CNOVon 07-21-2024 CNOV Office Visit (ENDOMN ) LIZETTE DAVIES ([id number]) 1945 F Date Time Provider Department 07/21/24 3:00 PM AJAY GRANT ENDOMN During your visit today, we recorded the following information about you: Pulse Blood pressure Weight Height 98/minute 109/75 68 kg 1.473 m Bebo Martinez MA 07/21/2024 2:47 PM Signed Thank you for choosing the [facility] Department of Endocrinology, Diabetes and Metabolism. Did you know that you need to call 48 hours in advance of your scheduled visit, if you are unable to make your appointment? The Endocrinology and Metabolism [facility] thanks you for your commitment, because patients not showing to their appointment results in a lost opportunity for patients to receive world class health care at the [facility]. To Cancel an appointment, please choose one of the following: - Call the Appointment Call Center at [phone] - From [facility], Go to Appointments - Cancel Appts If cancelling, consider your need to reschedule to prevent further delays in your care. To Schedule an appointment, please choose one of the following: - Call the Appointment Call Center at [phone] - From [facility], Go to Appointments - Request an Appt Ajay Grant MD 07/21/2024 3:55 PM Signed REASON OF VISIT: Compression fracture. REFERRING PHYSICIAN: Michael Snowedn MD Consultation requested by Dr. Snowden for [...] not taking: Reported on 07/21/2024) COMPOUNDED PRESCRIPTION [email or web address] defense 17 drops daily and working up to 60 drops daily (in divided doses). Serving size 30 drops. Mineral water and ethanol 20-24%) (Patient not taking: Reported on 07/21/2024) OTC NUTRITIONAL SUPPLEMENT zypan supplement (Patient not taking: Reported on 07/21/2024) COMPOUNDED PRESCRIPTION Home Health assessment services manager, itzel, PT. Dx: Bilat sprained ankles, gait instability. acetaminophen (TYLENOL EXTRA STRENGTH) 500 mg tablet Take 1 tablet by mouth every 6 hours as needed for Pain. Magnesium 250 mg tab Take 1,000 mg by mouth. (Patient not taking: Reported on 07/21/2024) MULTIVITAMIN TAB Take one(1) tablet daily. (Patient not taking: Reported on 07/21/2024) No current fa (more content not included)... Normal [facility] CN Office Visit (REMS31 ) LIZETTE DAVIES ([id number]) 1945 F Date Time Provider Department 07/21/24 [...] transitional care- ECF - PT stopped at [facility]. Can walk some with walker- about [...] (degenerative disc disease), cervical MRI scanned into [facility] January 11, 2014 ([facility]) DDD (degenerative disc disease), lumbosacral Essential hypertension, [...] 1970's Wi (more content not included)... Normal [facility] Comprehensive metabolic 2000 panelon 07-21-2024 Albumin [Mass/Vol] 3.9 g/dL Normal 3.9-4.9 [facility] Comment on above: Order Comment: Speci men Type: BLOOD SPECIMEN Ordering Facility: [facility] Address: [address] [place] [address] Performed By: #### 3 016-3, 10636-1, 27709-28, 8 #### [facility] CLIA [id number] [address] [place] [address] [place] ALP [Catalytic activity/Vol] 108 U/L Normal 34-123 [facility] Comment on above: Order Comment: Speci men Type: BLOOD SPECIMEN Ordering Facility: [facility] Address: [address] [place] [address] Performed By: #### 3 016-3, 69041-3, 27709-28, 8 #### [facility] CLIA [id number] [address] [place] [address] [place] ALT [Catalytic activity/Vol] 13 U/L Normal 7-38 [facility] Comment on above: Order Comment: Speci men Type: BLOOD SPECIMEN Ordering Facility: [facility] Address: [address] [place] [address] Performed By: #### 3 016-3, 67048-3, 277-1, 8 #### [facility] CLIA [id number] [address] [place], [place] [id number] [place] Anion gap [Moles/Vol] 14 mmol/L Normal 8-15 [facility] Comment on above: Order Comment: Speci men Type: BLOOD SPECIMEN Ordering Facility: [facility] Address: [address] [place] [address] Performed By: #### 3 016-3, 11942-3, 277-1, 8 #### [facility] CLIA [id number] [address] [place], [place] [address] [place] AST [Catalytic activity/Vol] 19 U/L Normal 13-35 [facility] Comment on above: Order Comment: Speci men Type: BLOOD SPECIMEN Ordering Facility: [facility] Address: [address] [place] [address] Performed By: #### 3 016-3, 75272-6, 277-1, 8 #### [facility] CLIA [id number] [address] [place] [address] [place] Bilirubin [Mass/Vol] 0.3 mg/dL Normal 0.2-1.3 [facility] Comment on above: Order Comment: Speci men Type: BLOOD SPECIMEN Ordering Facility: [facility] Address: [address] [place] [address] Performed By: #### 3 016-3, 23470-0, 277-1, 8 #### [facility] CLIA [id number] [address] [place], [place] [address] [place] Calcium [Mass/Vol] 9.6 mg/dL Normal 8.5-10.2 [facility] Comment on above: Order Comment: Speci men Type: BLOOD SPECIMEN Ordering Facility: [facility] Address: [address] [place] [address] Performed By: #### 3 016-3, 67025-8, 277-1, 2730-8 #### [facility] CLIA [id number] [address] [place] [address] [place] Chloride [Moles/Vol] 100 mmol/L Normal 98-107 [facility] Comment on above: Order Comment: Speci men Type: BLOOD SPECIMEN Ordering Facility: [facility] Address: [address] [place] [address] Performed By: #### 3 016-3, 42732-5, 277-1, 8 #### [facility] CLIA [id number] [address] [place] [address] [place] CO2 [Moles/Vol] 25 mmol/L Normal 22-30 [facility] Comment on above: Order Comment: Speci men Type: BLOOD SPECIMEN Ordering Facility: [facility] Address: [address] [place] [address] Performed By: #### 3 016-3, 14336-2, 277-1, 8 #### [facility] CLIA [id number] [address] [place] [address] [place] Creatinine [Mass/Vol] 0.79 mg/dL Normal 0.58-0.96 [facility] Comment on above: Order Comment: Speci men Type: BLOOD SPECIMEN Ordering Facility: [facility] Address: [address] [place] [address] Performed By: #### 3 016-3, 57519-5, 277-1, 8 #### [facility] CLIA [id number] [address] [place] [address] [place] Creatinine and Glomerular filtration rate.predicted panel (S/P/Bld) 77 mL/min/1.73m??? Normal >=60 [facility] Comment on above: Order Comment: Speci men Type: BLOOD SPECIMEN Ordering Facility: [facility] Address: [address] [place] [address] Result Comment: Brigida mated Glomerular Filtration Rate [...] actual GFR. Performed By: #### 3 016-3, 18808-5, 2776-03, 2730-10 #### [facility] CLIA [id number] [address] [place] [address] [place] Glucose [Mass/Vol] 97 mg/dL Normal 74-99 [facility] Comment on above: Order Comment: Iwona pedro Type: BLOOD SPECIMEN Ordering Facility: [facility] Address: [address] [place] [address] Result Comment: The [place] [employer] (ADA) provides guidance for cutoff [...] Standards of Medical Care in Diabetes 2016, [place] [employer]. Diabetes Care. 2016.39(Suppl 1). Performed By: #### 3 016-3, 99296-4, 2776-03, 2730-10 #### [facility] CLIA [id number] [address] [place] [address] [place] Potassium [Moles/Vol] 5.1 mmol/L Normal 3.7-5.1 [facility] Comment on above: Order Comment: Iwona pedro Type: BLOOD SPECIMEN Ordering Facility: [facility] Address: [address] [place], [place] [id number] Performed By: #### 3 016-3, 43806-4, 2776-03, 2730-10 #### [facility] CLIA [id number] [address] [place], [place] [id number] [place] Protein [Mass/Vol] 7.0 g/dL Normal 6.3-8.0 [facility] Comment on above: Order Comment: Speci men Type: BLOOD SPECIMEN Ordering Facility: [facility] Address: [address] [place] [address] Performed By: #### 3 016-3, 78784-0, 277-1, 8 #### [facility] CLIA [id number] [address] [place], [place] [id number] [place] Sodium [Moles/Vol] 139 mmol/L Normal 136-144 [facility] Comment on above: Order Comment: Speci men Type: BLOOD SPECIMEN Ordering Facility: [facility] Address: [address] [place] [address] Performed By: #### 3 016-3, 61488-6, 277-1, 2730-10 #### [facility] CLIA [id number] [address] [place] [address] [place] Urea nitrogen [Mass/Vol] 14 mg/dL Normal 7-21 [facility] Comment on above: Order Comment: Speci men Type: BLOOD SPECIMEN Ordering Facility: [facility] Address: [address] [place] [address] Performed By: #### 3 016-3, 70454-8, 277-1, 8 #### [facility] CLIA [id number] [address] [place], [place] [id number] [place] PTH-Intact SerPl-mCncon 04-2 Parathyrin.intact [Mass/Vol] 20 pg/mL Normal 15-65 [facility] Comment on above: Order Comment: Speci men Type: BLOOD SPECIMEN Ordering Facility: [facility] Address: [address] [place], [place] [id number] Performed By: #### 3 016-3, 19737-5, 277-1, 8 #### [facility] CLIA [id number] [address] [place], [place] [id number] [place] Phosphate SerPl-mCncon 07-21 Phosphate [Mass/Vol] 3.9 mg/dL Normal 2.7-4.8 [facility] Comment on above: Order Comment: Speci men Type: BLOOD SPECIMEN Ordering Facility: [facility] Address: [address] [place] [address] Performed By: #### 3 016-3, 28346-3, 2777-1, 8 #### [facility] CLIA [id number] [address] [place] [address] [place] TSH SerPl-aCncon 07-21-2024 TSH Qn 0.762 m[IU]/L Normal 0.270-4.200 [facility] Comment on above: Order Comment: Speci men Type: BLOOD SPECIMEN Ordering Facility: [facility] Address: [address] [place] [address] Performed By: #### 3 016-3, 55391-2, 2777-1, 8 #### [facility] CLIA [id number] [address] [place] [address] [place] Absolute lymphocyte countOrd ered By: Nikia Henderson on 07-20-2024 Lymphocytes Auto (Unsp spec) [#/Vol] 1.71 10*3/uL 0.83-4.51 [facility] Anion gap in Serum or Plasma Ordered By: Nikia Henderson on 07-20-2024 Anion gap [Moles/Vol] 10 mmol/L 5-15 [facility] Automated lymphocyte count a s percentage of total leukocytesOrdered By: Nikia Henderson on 07-20-2024 Lymphocytes/100 WBC Auto (Unsp spec) 28.0 % 19-41 [facility] BUN/creatinine ratioOrdered By: Nikia Henderson on 07-20-2024 Urea nitrogen/Creatinine [Mass ratio] 16.1 mg/mg 10-20 [facility] Basophil percentageOrdered B y: Nikia Henderson on 07-20-2024 Basophils/100 WBC (Bld) 0.7 % 0-1 [facility] Carbon dioxide, total [Moles /volume] in Central venous bloodOrdered By: Nikia Henderson on 07-20-2024 CO2 [Moles/Vol] 23.8 mmol/L 21.0-32.0 [facility] Chloride assayOrdered By: Cecilia guanakoterra Henderson on 07-20-2024 Chloride [Moles/Vol] 104 mmol/L 98-108 [facility] Eosinophil percentageOrdered By: [facility] on 07-20-2024 Eosinophils/100 WBC (Bld) 2.1 % 0-5 [facility] Erythrocyte distribution wid th ratioOrdered By: [facility] Hospital[facility] Henderson on 07-20-2024 Erythrocyte distribution width (RBC) [Ratio] 13.7 % 11.6-14.6 [facility] Erythrocyte distribution wid th standard deviationOrdered By: guanakopie townehladio Henderson on 07-20-2024 Erythrocyte distribution width (RBC) [Ratio] 50.0 fl High 35.1-43.9 [facility] Glomerular filtration rate ( GFR) estimation/1.73 sq m using serum, plasma, or whole bOrdered By: Nikia Henderson on 07-20-2024 GFR/1.73 sq M.predicted among non-blacks MDRD (S/P/Bld) [Vol rate/Area] 92 mL/min/{1.73_m2} >60 [facility] Hematocrit Auto (Bld) [Volum e fraction]Ordered By: Nikia Henderson on 07-20-2024 Hematocrit (Bld) [Volume fraction] 33.5 % Low 37-47 [facility] Hemoglobin measurementOrdere d By: guanakopie townheladio Henderson on 07-20-2024 Hemoglobin (Bld) [Mass/Vol] 11.3 g/dL Low 12.0-15. 0 [facility] Immature granulocytes/100 WB C Auto (Bld)Ordered By: guanakopie townheladio Henderson on 07-20-2024 Immature granulocytes/100 WBC (Bld) 0.500 % 0.0-0.9 [facility] MCV (mean corpuscular volume ) determinationOrdered By: Nikia Henderson on 07-20-2024 MCV (RBC) [Entitic vol] 100.0 fL High 81-99 [facility] Mean corpuscular hemoglobin (MCH) determinationOrdered By: Cecilialaura Jainjanicevioletta on 07-20-2024 MCH (RBC) [Entitic mass] 33.7 pg High 27.0-32.0 [facility] Monocyte percentageOrdered B y: Nikia Henderson on 07-20-2024 Monocytes/100 WBC (Bld) 10.2 % High 0-10 [facility] Neutrophil percentageOrdered By: Cecilialaura Jainjanicevioletta on 07-20-2024 Neutrophils/100 WBC (Bld) 58.5 % 47-70 [facility] Platelet countOrdered By: Cecilia kelleeheladio Henderson on 07-20-2024 Platelets (Bld) [#/Vol] 276 10*3/uL 150-450 [facility] Potassium measurement (mass/ volume)Ordered By: Nikia Henderson on 07-20-2024 Potassium (Unsp spec) [Mass/Vol] 4.1 mmol/L 3.3-5.1 [facility] RBC Auto (Bld) [#/Vol]Ordere d By: Nikia Henderson on 07-20-2024 RBC (Bld) [#/Vol] 3.35 10*6/uL Low 4.2-5.4 [facility] Serum creatinine measurement (mass/volume)Ordered By: Nikia Henderson on 07-20-2024 Creatinine [Mass/Vol] 0.59 mg/dL Low 0.70-1.20 [facility] Serum glucose measurement (m ass/volume)Ordered By: Nikia Henderson on 07-20-2024 Glucose [Mass/Vol] 85 mg/dL 70-[address] [facility] Serum or plasma calcium gianluca urement (mass/volume)Ordered By: Nikia Henderson on 07-20-2024 Calcium [Mass/Vol] 9.1 mg/dL 7.6-11.[address] [facility] Serum or plasma urea nitroge n measurement (mass/volume)Ordered By: Nikia Jainjanicevioletta on 07-20-2024 Urea nitrogen [Mass/Vol] 9 mg/dL 4- [facility] Sodium levelOrdered By: Catalina ellison Cristobaljanicevioletta on 07-20-2024 Sodium [Moles/Vol] 138 mmol/L 133-[address] [facility] White blood cell (WBC) count Ordered By: Ceciliaguanakofedeheladio Jainjanicevioletta on 07-20-2024 WBC (Bld) [#/Vol] 6.1 10*3/uL 4.4-11.[address] [facility] Absolute lymphocyte countOrd ered By: Ceciliaguanakofedeheladio Jainjanicevioletta on 07-13-2024 Lymphocytes Auto (Unsp spec) [#/Vol] 1.48 10*3/uL 0.83-4.51 [facility] Absolute neutrophil countOrd ered By: Ceciliaguanakofedeheladio Jainjanicevioletta on 07-13-2024 Absolute neutrophil count 3.7 X10^3/uL 2.0-7.7 [facility] Anion gap [Moles/Vol]Ordered By: Nikia Jainjanicevioletta on 07-13-2024 Anion gap in Serum or Plasma 9 08-12 [facility] Anion gap in Serum or Plasma Ordered By: Cecilialaura Jainjanicevioletta on 07-13-2024 Anion gap [Moles/Vol] 9 mmol/L 08-12 [facility] Automated lymphocyte count a s percentage of total leukocytesOrdered By: Nikia Jainjanicevioletta on 07-13-2024 Lymphocytes/100 WBC Auto (Unsp spec) 24.8 % - [facility] BUN/creatinine ratioOrdered By: Cecilialaura Jainjanicevioletta on 07-13-2024 Urea nitrogen/Creatinine [Mass ratio] 19.7 mg/mg 10- [facility] BUN/creatinine ratio 19.7 RATIO 10- [facility] Basophil percentageOrdered B y: Nikia Henderson on 07-13-2024 Basophils/100 WBC (Bld) 0.8 % 0-1 [facility] Basophil percentage 0.8 % 0-1 [facility] Calcium [Mass/Vol]Ordered By : Nikia Henderson on 07-13-2024 Serum or plasma calcium measurement (mass/volume) 8.8 mg/dL 7.6-11.[address] [facility] Carbon dioxide, total [Moles /volume] in Central venous bloodOrdered By: Nikia Henderson 07-13-2024 CO2 [Moles/Vol] 24.1 mmol/L 21.0-32.0 [facility] Carbon dioxide, total [Moles/volume] in Central venous blood 24.1 mmol/L 21.0-32.0 [facility] Chloride assayOrdered By: Cecilia Henderson on 07-13-2024 Chloride [Moles/Vol] 108 mmol/L 98-108 [facility] Chloride assay 108 mmol/L 98-108 [facility] Creatinine [Mass/Vol]Ordered By: Nikia Henderson on 07-13-2024 Serum creatinine measurement (mass/volume) 0.59 mg/dL Low 0.70-1.[address] [facility] Eosinophil percentageOrdered By: Nikia Henderson 07-13-2024 Eosinophils/100 WBC (Bld) 2.9 % 0-5 [facility] Eosinophil percentage 2.9 % 0-5 [facility] Erythrocyte distribution wid th (RBC) [Ratio]Ordered By: Nikia Henderson 07-13-2024 Erythrocyte distribution width ratio 14.2 % 11.6-14.6 [facility] Erythrocyte distribution width standard deviation 52.8 fl High 35.1-43.9 [facility] Erythrocyte distribution wid th ratioOrdered By: Nikia Henderson 07-13-2024 Erythrocyte distribution width (RBC) [Ratio] 14.2 % 11.6-14.6 [facility] Erythrocyte distribution wid th standard deviationOrdered By: guanakopie townheladio Henderson 07-13-2024 Erythrocyte distribution width (RBC) [Ratio] 52.8 fl High 35.1-43.9 [facility] GFR/1.73 sq M.predicted viji g non-blacks MDRD (S/P/Bld) [Vol rate/Area]Ordered By: Nikia Henderson 07-13-2024 Glomerular filtration rate (GFR) estimation/1.73 sq m using serum, plasma, or whole b 92 >60 [facility] Glomerular filtration rate ( GFR) estimation/1.73 sq m using serum, plasma, or whole bOrdered By: Nikia Henderson on 07-13-2024 GFR/1.73 sq M.predicted among non-blacks MDRD (S/P/Bld) [Vol rate/Area] 92 mL/min/{1.73_m2} >60 [facility] Glucose [Mass/Vol]Ordered By : Nikia Henderson on 07-13-2024 Serum glucose measurement (mass/volume) 84 mg/dL 70-99 [facility] Hematocrit Auto (Bld) [Volum e fraction]Ordered By: Nikia Henderson on 07-13-2024 Hematocrit (Bld) [Volume fraction] 32.8 % Low 37-47 [facility] Automated blood hematocrit (percentage) 32.8 % Low 37-47 [facility] Hemoglobin measurementOrdere d By: Nikia Henderson on 07-13-2024 Hemoglobin (Bld) [Mass/Vol] 10.8 g/dL Low 12.0-15. 0 [facility] Hemoglobin measurement 10.8 g/dL Low 12.0-15.0 [facility] Immature granulocytes/100 WB C Auto (Bld)Ordered By: Nikia Henderson on 07-13-2024 Immature granulocytes/100 WBC (Bld) 0.700 % 0.0-0.9 [facility] Automated immature granulocyte percentage 0.700 % 0.0-0.9 [facility] Lymphocytes Auto (Unsp spec) [#/Vol]Ordered By: Nikia Henderson on 07-13-2024 Absolute lymphocyte count 1.48 X10^3/uL 0.83-4. 51 [facility] Lymphocytes/100 WBC Auto (Un sp spec)Ordered By: Nikia Henderson on 07-13-2024 Automated lymphocyte count as percentage of total leukocytes 24.8 % 19-41 [facility] MCV (RBC) [Entitic vol]Order ed By: Nikia Henderson on 07-13-2024 MCV (mean corpuscular volume) determination 102.2 fL High 81-99 [facility] MCV (mean corpuscular volume ) determinationOrdered By: Nikia Henderson on 07-13-2024 MCV (RBC) [Entitic vol] 102.2 fL High 81-99 [facility] Mean corpuscular hemoglobin (MCH) determinationOrdered By: Nikia Henderson on 07-13-2024 MCH (RBC) [Entitic mass] 33.6 pg High 27.0-32.0 [facility] Mean corpuscular hemoglobin (MCH) determination 33.6 pg High 27.0-32.0 [facility] Mean corpuscular hemoglobin concentration (MCHC) determinationOrdered By: Nikia Henderson on 07-13-2024 Mean corpuscular hemoglobin concentration (MCHC) determination 32.9 g/dL 32-36 [facility] Mean platelet volume determi nationOrdered By: Nikia Henderson on 07-13-2024 Mean platelet volume determination 9.5 fl 6.2-12.0 [facility] Monocyte percentageOrdered B y: Nikia Henderson on 07-13-2024 Monocytes/100 WBC (Bld) 9.1 % 0-10 [facility] Monocyte percentage 9.1 % 0-10 [facility] Neutrophil percentageOrdered By: Nikia Henderson on 07-13-2024 Neutrophils/100 WBC (Bld) 61.7 % 47-70 [facility] Neutrophil percentage 61.7 % 47-70 [facility] Nucleated red blood cell per centageOrdered By: Nikia Henderson on 07-13-2024 Nucleated red blood cell percentage 0 % 0-5 [facility] Platelet countOrdered By: Cecilia Henderson on 07-13-2024 Platelets (Bld) [#/Vol] 267 10*3/uL 150-450 [facility] Platelet count 267 K/mm3 150-450 [facility] Potassium (Unsp spec) [Mass/ Vol]Ordered By: Nikia Henderson on 07-13-2024 Potassium measurement (mass/volume) 4.1 mmol/L 3.3-5.1 [facility] Potassium measurement (mass/ volume)Ordered By: Nikia Henderson on 07-13-2024 Potassium (Unsp spec) [Mass/Vol] 4.1 mmol/L 3.3-5.1 [facility] RBC Auto (Bld) [#/Vol]Ordere d By: Nikia Henderson on 07-13-2024 RBC (Bld) [#/Vol] 3.21 10*6/uL Low 4.2-5.4 [facility] Automated blood erythrocyte count 3.21 M/mm3 Low 4.2-5.4 [facility] Serum creatinine measurement (mass/volume)Ordered By: Nikia Henderson on 07-13-2024 Creatinine [Mass/Vol] 0.59 mg/dL Low 0.70-1.20 [facility] Serum glucose measurement (m ass/volume)Ordered By: Nikia Henderson on 07-13-2024 Glucose [Mass/Vol] 84 mg/dL 70-[address] [facility] Serum or plasma calcium gianluca urement (mass/volume)Ordered By: Nikia Henderson on 07-13-2024 Calcium [Mass/Vol] 8.8 mg/dL 7.6-11.[address] [facility] Serum or plasma urea nitroge n measurement (mass/volume)Ordered By: Nikia Henderson on 07-13-2024 Urea nitrogen [Mass/Vol] 12 mg/dL - [facility] Sodium levelOrdered By: Catalina Henderson on 07-13-2024 Sodium [Moles/Vol] 141 mmol/L 133-[address] [facility] Sodium level 141 mmol/L 133-145 [facility] Urea nitrogen [Mass/Vol]Orde red By: Nikia Henderson on 07-13-2024 Serum or plasma urea nitrogen measurement (mass/volume) 12 mg/dL - [facility] White blood cell (WBC) count Ordered By: Nikia Henderson on 07-13-2024 WBC (Bld) [#/Vol] 6.0 10*3/uL 4.4-11.[address] [facility] White blood cell (WBC) count 6.0 K/mm3 4.4-11.0 [id number] LIZETTE DAVIES ([id number]) 1945 F Date Time Provider Department 07/08/24 JOVANNI MATTHEWS31 During your visit today, we recorded the following information about you: Andressa Arias 07/08/2024 1:55 PM Signed New Patient appointment on 07/21/24 Received outside hospital, [facility] Radiology reports for x-rays and MRIs for [...] by mouth once daily. - COMPOUNDED PRESCRIPTION YUPPTVgabiSpectraRep 17 drops daily and working up to 60 drops daily (in divided doses). Serving size 30 drops. 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 Dx: Bilat sprained ankles, gait [...] NOS [K92.2] 03/08/2005 MYALGIA AND MYOSITIS NOS [[id number]] 09/02/2005 CONGENITAL PES PLANUS [Q66.50] 06/29/2007 Tibialis [...] Status:Closed by JOVANNI MATTHEW on 07/26/24 Normal [facility] Absolute lymphocyte countOrd ered By: Nikia Henderson on 07-06-2024 Lymphocytes Auto (Unsp spec) [#/Vol] 1.68 10*3/uL 0.83-4.51 [facility] Absolute neutrophil countOrd ered By: Nikia Henderson on 07-06-2024 Neutrophils (Bld) [#/Vol] 4.0 10*3/uL 2.0-7.7 [facility] Absolute neutrophil count 4.0 X10^3/uL 2.0-7.7 [facility] Anion gap [Moles/Vol]Ordered By: Nikia Henderson on 07-06-2024 Anion gap in Serum or Plasma 10 5-15 [facility] Anion gap in Serum or Plasma Ordered By: Nikia Henderson on 07-06-2024 Anion gap [Moles/Vol] 10 mmol/L 5-15 [facility] Automated lymphocyte count a s percentage of total leukocytesOrdered By: Nikia eHnderson on 07-06-2024 Lymphocytes/100 WBC Auto (Unsp spec) 25.1 % 19-41 [facility] BUN/creatinine ratioOrdered By: Nikia Henderson on 07-06-2024 Urea nitrogen/Creatinine [Mass ratio] 23.7 mg/mg High 10-20 [facility] BUN/creatinine ratio 23.7 RATIO High 10-20 [facility] Basophil percentageOrdered B y: Nikia Henderson on 07-06-2024 Basophils/100 WBC (Bld) 0.9 % 0-1 [facility] Basophil percentage 0.9 % 0-1 [facility] Calcium [Mass/Vol]Ordered By : Nikia Henderson on 07-06-2024 Serum or plasma calcium measurement (mass/volume) 8.8 mg/dL 7.6-11.[address] [facility] Carbon dioxide, total [Moles /volume] in Central venous bloodOrdered By: Nikia Henderson on 07-06-2024 CO2 [Moles/Vol] 22.4 mmol/L 21.0-32.0 [facility] Carbon dioxide, total [Moles/volume] in Central venous blood 22.4 mmol/L 21.0-32.0 [facility] Chloride assayOrdered By: Cecilia Henderson on 07-06-2024 Chloride [Moles/Vol] 108 mmol/L 98-108 [facility] Chloride assay 108 mmol/L 98-108 [facility] Creatinine [Mass/Vol]Ordered By: Nikia Henderson on 07-06-2024 Serum creatinine measurement (mass/volume) 0.76 mg/dL 0.70-1.[address] [facility] Eosinophil percentageOrdered By: Nikia Henderson on 07-06-2024 Eosinophils/100 WBC (Bld) 2.5 % 0-5 [facility] Eosinophil percentage 2.5 % 0-5 [facility] Erythrocyte distribution wid th (RBC) [Ratio]Ordered By: Nikia Henderson on 07-06-2024 Erythrocyte distribution width ratio 14.3 % 11.6-14.6 [facility] Erythrocyte distribution width (RBC) [Entitic vol] 53.8 fL High 35.1-43.[address] [facility] Erythrocyte distribution width standard deviation 53.8 fl High 35.1-43.9 [facility] Erythrocyte distribution wid th ratioOrdered By: Nikia Henderson on 07-06-2024 Erythrocyte distribution width (RBC) [Ratio] 14.3 % 11.6-14.6 [facility] Erythrocyte distribution wid th standard deviationOrdered By: Nikia Henderson on 07-06-2024 Erythrocyte distribution width (RBC) [Ratio] 53.8 fl High 35.1-43.9 [facility] GFR/1.73 sq M.predicted viji g non-blacks MDRD (S/P/Bld) [Vol rate/Area]Ordered By: Nikia Henderson on 07-06-2024 Estimated GFR (MDRD) Non-Af Amer 80 >60 [facility] Comment on above: mL/min/1.73m2 CKD-EP I Creatinine Equation (2020) Glomerular filtration rate (GFR) estimation/1.73 sq m using serum, plasma, or whole b 80 >60 [facility] Glomerular filtration rate ( GFR) estimation/1.73 sq m using serum, plasma, or whole bOrdered By: Nikia Henderson on 07-06-2024 GFR/1.73 sq M.predicted among non-blacks MDRD (S/P/Bld) [Vol rate/Area] 80 mL/min/{1.73_m2} >60 [facility] Glucose [Mass/Vol]Ordered By : Nikia Henderson on 07-06-2024 Serum glucose measurement (mass/volume) 90 mg/dL 70-99 [facility] Hematocrit Auto (Bld) [Volum e fraction]Ordered By: Nikia Henderson on 07-06-2024 Hematocrit (Bld) [Volume fraction] 34.4 % Low 37-47 [facility] Automated blood hematocrit (percentage) 34.4 % Low 37-47 [facility] Hemoglobin measurementOrdere d By: Nikia Henderson on 07-06-2024 Hemoglobin (Bld) [Mass/Vol] 11.1 g/dL Low 12.0-15. 0 [facility] Hemoglobin measurement 11.1 g/dL Low 12.0-15.0 [facility] Immature granulocytes/100 WB C Auto (Bld)Ordered By: Nikia Henderson on 07-06-2024 Immature granulocytes/100 WBC (Bld) 1.300 % High 0.0-0.9 [facility] Comment on above: IG% - Immature Granu locytes (promyelocytes, myelocytes and metamyelocytes) > 1% indicates that a LEFT SHIFT is Present. Automated immature granulocyte percentage 1.300 % High 0.0-0.9 [facility] Lymphocytes Auto (Unsp spec) [#/Vol]Ordered By: Nikia Henderson on 07-06-2024 Lymphocytes (Bld) [#/Vol] 1.68 10*3/uL 0.83-4.5 1 [facility] Absolute lymphocyte count 1.68 X10^3/uL 0.83-4. 51 [facility] Lymphocytes/100 WBC Auto (Un sp spec)Ordered By: Nikia Henderson on 07-06-2024 Lymphocytes/100 WBC (Bld) 25.1 % - [facility] Automated lymphocyte count as percentage of total leukocytes 25.1 % - [facility] MCV (RBC) [Entitic vol]Order ed By: Nikia Henderson on 07-06-2024 MCV (mean corpuscular volume) determination 103.6 fL High 81-99 [facility] MCV (mean corpuscular volume ) determinationOrdered By: Nikia Henderson on 07-06-2024 MCV (RBC) [Entitic vol] 103.6 fL High 81-99 [facility] Mean corpuscular hemoglobin (MCH) determinationOrdered By: Nikia Henderson on 07-06-2024 MCH (RBC) [Entitic mass] 33.4 pg High 27.0-32.0 [facility] Mean corpuscular hemoglobin (MCH) determination 33.4 pg High 27.0-32.0 [facility] Mean corpuscular hemoglobin concentration (MCHC) determinationOrdered By: Nikia Henderson on 07-06-2024 MCHC (RBC) [Mass/Vol] 32.3 g/dL 32-36 [facility] Mean corpuscular hemoglobin concentration (MCHC) determination 32.3 g/dL -36 [facility] Mean platelet volume determi nationOrdered By: Nikia Henderson on 07-06-2024 Platelet mean volume (Bld) [Entitic vol] 9.4 fL 6.2-12.0 [facility] Mean platelet volume determination 9.4 fl 6.2-12.0 [facility] Monocyte percentageOrdered B y: Nikia Henderson on 07-06-2024 Monocytes/100 WBC (Bld) 10.8 % High 0-10 [facility] Monocyte percentage 10.8 % High 0-10 [facility] Neutrophil percentageOrdered By: Nikia Henderson on 07-06-2024 Neutrophils/100 WBC (Bld) 59.4 % 47-70 [facility] Neutrophil percentage 59.4 % 47-70 [facility] Nucleated red blood cell per centageOrdered By: Nikia Henderson on 07-06-2024 Nucleated RBC/100 WBC (Bld) [Ratio] 0 % 0-5 [facility] Nucleated red blood cell percentage 0 % 0-5 [facility] Platelet countOrdered By: Cecilia Henderson on 07-06-2024 Platelets (Bld) [#/Vol] 299 10*3/uL 150-450 [facility] Platelet count 299 K/mm3 150-450 [facility] Potassium (Unsp spec) [Mass/ Vol]Ordered By: Nikia Henderson on 07-06-2024 Potassium [Moles/Vol] 4.3 mmol/L 3.3-5.1 [facility] Potassium measurement (mass/volume) 4.3 mmol/L 3.3-5.1 [facility] Potassium measurement (mass/ volume)Ordered By: Nikia Henderson on 07-06-2024 Potassium (Unsp spec) [Mass/Vol] 4.3 mmol/L 3.3-5.1 [facility] RBC Auto (Bld) [#/Vol]Ordere d By: Nikia Henderson on 07-06-2024 RBC (Bld) [#/Vol] 3.32 10*6/uL Low 4.2-5.4 [facility] Automated blood erythrocyte count 3.32 M/mm3 Low 4.2-5.4 [facility] Serum creatinine measurement (mass/volume)Ordered By: Nikia Henderson on 07-06-2024 Creatinine [Mass/Vol] 0.76 mg/dL 0.70-1.20 [facility] Serum glucose measurement (m ass/volume)Ordered By: Nikia Henderson on 07-06-2024 Glucose [Mass/Vol] 90 mg/dL 70-[address] [facility] Serum or plasma calcium gianluca urement (mass/volume)Ordered By: Nikia Henderson on 07-06-2024 Calcium [Mass/Vol] 8.8 mg/dL 7.6-11.[address] [facility] Serum or plasma urea nitroge n measurement (mass/volume)Ordered By: Nikia Henderson on 07-06-2024 Urea nitrogen [Mass/Vol] 18 mg/dL - [facility] Sodium levelOrdered By: Catalina Henderson on 07-06-2024 Sodium [Moles/Vol] 140 mmol/L 133-[address] [facility] Sodium level 140 mmol/L 133-145 [facility] Urea nitrogen [Mass/Vol]Orde red By: Nikia Henderson on 07-06-2024 Serum or plasma urea nitrogen measurement (mass/volume) 18 mg/dL - [facility] White blood cell (WBC) count Ordered By: Nikia Henderson on 07-06-2024 WBC (Bld) [#/Vol] 6.7 10*3/uL 4.4-11.[address] [facility] White blood cell (WBC) count 6.7 K/mm3 4.4-11.0 [facility] Absolute lymphocyte countOrd ered By: Audra Drake on 06-29-2024 Lymphocytes Auto (Unsp spec) [#/Vol] 1.28 10*3/uL 0.83-4.51 [facility] Absolute neutrophil countOrd ered By: Audra Drake on 06-29-2024 Neutrophils (Bld) [#/Vol] 4.0 10*3/uL 2.0-7.7 [facility] Absolute neutrophil count 4.0 X10^3/uL 2.0-7.7 [facility] Anion gap [Moles/Vol]Ordered By: Audra Drake on 06-29-2024 Anion gap in Serum or Plasma 10 5-15 [facility] Anion gap in Serum or Plasma Ordered By: Audra Drake on 06-29-2024 Anion gap [Moles/Vol] 10 mmol/L 5-15 [facility] Automated lymphocyte count a s percentage of total leukocytesOrdered By: Audra Drake on 06-29-2024 Lymphocytes/100 WBC Auto (Unsp spec) 20.1 % 19-41 [facility] BUN/creatinine ratioOrdered By: Audra Drake on 06-29-2024 Urea nitrogen/Creatinine [Mass ratio] 18.5 mg/mg 10-20 [facility] BUN/creatinine ratio 18.5 RATIO 10-20 [facility] Basophil percentageOrdered B y: Audra Drake on 06-29-2024 Basophils/100 WBC (Bld) 0.9 % 0-1 [facility] Basophil percentage 0.9 % 0-1 [facility] Calcium [Mass/Vol]Ordered By : Audra Drake on 06-29-2024 Serum or plasma calcium measurement (mass/volume) 9.0 mg/dL 7.6-11.[address] [facility] Carbon dioxide, total [Moles /volume] in Central venous bloodOrdered By: Audra Drake on 06-29-2024 CO2 [Moles/Vol] 21.5 mmol/L 21.0-32.0 [facility] Carbon dioxide, total [Moles/volume] in Central venous blood 21.5 mmol/L 21.0-32.0 [facility] Chloride assayOrdered By: Dimitris Drake on 06-29-2024 Chloride [Moles/Vol] 109 mmol/L High 98-108 [facility] Chloride assay 109 mmol/L High 98-108 [facility] Creatinine [Mass/Vol]Ordered By: Audra Drake on 06-29-2024 Serum creatinine measurement (mass/volume) 0.65 mg/dL Low 0.70-1.[address] [facility] Eosinophil percentageOrdered By: Audra Drake on 06-29-2024 Eosinophils/100 WBC (Bld) 2.5 % 0-5 [facility] Eosinophil percentage 2.5 % 0-5 [facility] Erythrocyte distribution wid th (RBC) [Ratio]Ordered By: Audra Drake on 06-29-2024 Erythrocyte distribution width ratio 14.0 % 11.6-14.6 [facility] Erythrocyte distribution width (RBC) [Entitic vol] 51.9 fL High 35.1-43.[address] [facility] Erythrocyte distribution width standard deviation 51.9 fl High 35.1-43.9 [facility] Erythrocyte distribution wid th ratioOrdered By: Audra Drake on 06-29-2024 Erythrocyte distribution width (RBC) [Ratio] 14.0 % 11.6-14.6 [facility] Erythrocyte distribution wid th standard deviationOrdered By: Aurda Drake on 06-29-2024 Erythrocyte distribution width (RBC) [Ratio] 51.9 fl High 35.1-43.9 [facility] GFR/1.73 sq M.predicted viji g non-blacks MDRD (S/P/Bld) [Vol rate/Area]Ordered By: Audra Drake on 06-29-2024 Estimated GFR (MDRD) Non-Af Amer 90 >60 [facility] Comment on above: mL/min/1.73m2 CKD-EP I Creatinine Equation (2020) Glomerular filtration rate (GFR) estimation/1.73 sq m using serum, plasma, or whole b 90 >60 [facility] Glomerular filtration rate ( GFR) estimation/1.73 sq m using serum, plasma, or whole bOrdered By: Audra Drake on 06-29-2024 GFR/1.73 sq M.predicted among non-blacks MDRD (S/P/Bld) [Vol rate/Area] 90 mL/min/{1.73_m2} >60 [facility] Glucose [Mass/Vol]Ordered By : Audra Drake on 06-29-2024 Serum glucose measurement (mass/volume) 84 mg/dL 70-99 [facility] Hematocrit Auto (Bld) [Volum e fraction]Ordered By: Audra Drake on 06-29-2024 Hematocrit (Bld) [Volume fraction] 35.7 % Low 37-47 [facility] Automated blood hematocrit (percentage) 35.7 % Low 37-47 [facility] Hemoglobin measurementOrdere d By: Audra Drake on 06-29-2024 Hemoglobin (Bld) [Mass/Vol] 11.5 g/dL Low 12.0-15. 0 [facility] Hemoglobin measurement 11.5 g/dL Low 12.0-15.0 [facility] Immature granulocytes/100 WB C Auto (Bld)Ordered By: Audra Drake on 06-29-2024 Immature granulocytes/100 WBC (Bld) 1.100 % High 0.0-0.9 [facility] Comment on above: IG% - Immature Granu locytes (promyelocytes, myelocytes and metamyelocytes) > 1% indicates that a LEFT SHIFT is Present. Automated immature granulocyte percentage 1.100 % High 0.0-0.9 [facility] Lymphocytes Auto (Unsp spec) [#/Vol]Ordered By: Audra Drake on 06-29-2024 Lymphocytes (Bld) [#/Vol] 1.28 10*3/uL 0.83-4.5 1 [facility] Absolute lymphocyte count 1.28 X10^3/uL 0.83-4. 51 [facility] Lymphocytes/100 WBC Auto (Un sp spec)Ordered By: Audra Drake on 06-29-2024 Lymphocytes/100 WBC (Bld) 20.1 % [facility] Automated lymphocyte count as percentage of total leukocytes 20.1 % [facility] MCV (RBC) [Entitic vol]Order ed By: Audra Drake on 06-29-2024 MCV (mean corpuscular volume) determination 99.7 fL High 81-99 [facility] MCV (mean corpuscular volume ) determinationOrdered By: Audra Drake on 06-29-2024 MCV (RBC) [Entitic vol] 99.7 fL High 81-99 [facility] Mean corpuscular hemoglobin (MCH) determinationOrdered By: Audra Drake on 06-29-2024 MCH (RBC) [Entitic mass] 32.1 pg High 27.0-32.0 [facility] Mean corpuscular hemoglobin (MCH) determination 32.1 pg High 27.0-32.0 [facility] Mean corpuscular hemoglobin concentration (MCHC) determinationOrdered By: Audra Drake on 06-29-2024 MCHC (RBC) [Mass/Vol] 32.2 g/dL 32-36 [facility] Mean corpuscular hemoglobin concentration (MCHC) determination 32.2 g/dL -36 [facility] Mean platelet volume determi nationOrdered By: Audra Drake on 06-29-2024 Platelet mean volume (Bld) [Entitic vol] 9.5 fL 6.2-12.0 [facility] Mean platelet volume determination 9.5 fl 6.2-12.0 [facility] Monocyte percentageOrdered B y: Audra Drake on 06-29-2024 Monocytes/100 WBC (Bld) 12.3 % High 0-10 [facility] Monocyte percentage 12.3 % High 0-10 [facility] Neutrophil percentageOrdered By: Audra Drake on 06-29-2024 Neutrophils/100 WBC (Bld) 63.1 % 47-70 [facility] Neutrophil percentage 63.1 % 47-70 [facility] Nucleated red blood cell per centageOrdered By: Audra Drake on 06-29-2024 Nucleated RBC/100 WBC (Bld) [Ratio] 0 % 0-5 [facility] Nucleated red blood cell percentage 0 % 0-5 [facility] Platelet countOrdered By: Dimitris Drake on 06-29-2024 Platelets (Bld) [#/Vol] 307 10*3/uL 150-450 [facility] Platelet count 307 K/mm3 150-450 [facility] Potassium (Unsp spec) [Mass/ Vol]Ordered By: Audra Drake on 06-29-2024 Potassium [Moles/Vol] 4.4 mmol/L 3.3-5.1 [facility] Potassium measurement (mass/volume) 4.4 mmol/L 3.3-5.1 [facility] Potassium measurement (mass/ volume)Ordered By: Audra Drake on 06-29-2024 Potassium (Unsp spec) [Mass/Vol] 4.4 mmol/L 3.3-5.1 [facility] RBC Auto (Bld) [#/Vol]Ordere d By: Audra Drake on 06-29-2024 RBC (Bld) [#/Vol] 3.58 10*6/uL Low 4.2-5.4 [facility] Automated blood erythrocyte count 3.58 M/mm3 Low 4.2-5.4 [facility] Serum creatinine measurement (mass/volume)Ordered By: Audra Drake on 06-29-2024 Creatinine [Mass/Vol] 0.65 mg/dL Low 0.70-1.20 [facility] Serum glucose measurement (m ass/volume)Ordered By: Audra Drake on 06-29-2024 Glucose [Mass/Vol] 84 mg/dL 70-[address] [facility] Serum or plasma calcium gianluca urement (mass/volume)Ordered By: Audra Drake on 06-29-2024 Calcium [Mass/Vol] 9.0 mg/dL 7.6-11.[address] [facility] Serum or plasma urea nitroge n measurement (mass/volume)Ordered By: Audra Drake on 06-29-2024 Urea nitrogen [Mass/Vol] 12 mg/dL 4- [facility] Sodium levelOrdered By: Cony Drake on 06-29-2024 Sodium [Moles/Vol] 140 mmol/L 133-[address] [facility] Sodium level 140 mmol/L 133-145 [facility] Urea nitrogen [Mass/Vol]Orde red By: Audra Drake on 06-29-2024 Serum or plasma urea nitrogen measurement (mass/volume) 12 mg/dL - [facility] White blood cell (WBC) count Ordered By: Audra Drake on 06-29-2024 WBC (Bld) [#/Vol] 6.4 10*3/uL 4.4-11.[address] [facility] White blood cell (WBC) count 6.4 K/mm3 4.4-11.0 [facility] Absolute lymphocyte countOrd ered By: Audra Drake on 06-22-2024 Lymphocytes Auto (Unsp spec) [#/Vol] 1.15 10*3/uL 0.83-4.51 [facility] Absolute neutrophil countOrd ered By: Audra Drake on 06-22-2024 Neutrophils (Bld) [#/Vol] 4.9 10*3/uL 2.0-7.7 [facility] Absolute neutrophil count 4.9 X10^3/uL 2.0-7.7 [facility] Anion gap [Moles/Vol]Ordered By: Audra Drake on 06-22-2024 Anion gap in Serum or Plasma 11 5-15 [facility] Anion gap in Serum or Plasma Ordered By: Audra Drake on 06-22-2024 Anion gap [Moles/Vol] 11 mmol/L 5-15 [facility] Automated lymphocyte count a s percentage of total leukocytesOrdered By: Audra Drake on 06-22-2024 Lymphocytes/100 WBC Auto (Unsp spec) 16.2 % Low 19-41 [facility] BUN/creatinine ratioOrdered By: Audra Drake on 06-22-2024 Urea nitrogen/Creatinine [Mass ratio] 18.7 mg/mg 10-20 [facility] BUN/creatinine ratio 18.7 RATIO 10-20 [facility] Basophil percentageOrdered B y: Audra Drake on 06-22-2024 Basophils/100 WBC (Bld) 0.6 % 0-1 [facility] Basophil percentage 0.6 % 0-1 [facility] Calcium [Mass/Vol]Ordered By : Audra Drake on 06-22-2024 Serum or plasma calcium measurement (mass/volume) 8.6 mg/dL 7.6-11.[address] [facility] Carbon dioxide, total [Moles /volume] in Central venous bloodOrdered By: Audra Drake on 06-22-2024 CO2 [Moles/Vol] 19.5 mmol/L Low 21.0-32.0 [facility] Carbon dioxide, total [Moles/volume] in Central venous blood 19.5 mmol/L Low 21.0-32.0 [facility] Chloride assayOrdered By: Dimitris Drake on 06-22-2024 Chloride [Moles/Vol] 107 mmol/L 98-108 [facility] Chloride assay 107 mmol/L 98-108 [facility] Creatinine [Mass/Vol]Ordered By: Audra Drake on 06-22-2024 Serum creatinine measurement (mass/volume) 0.78 mg/dL 0.70-1.[address] [facility] Eosinophil percentageOrdered By: Audra Drake on 06-22-2024 Eosinophils/100 WBC (Bld) 2.3 % 0-5 [facility] Eosinophil percentage 2.3 % 0-5 [facility] Erythrocyte distribution wid th (RBC) [Ratio]Ordered By: Audra Drake on 06-22-2024 Erythrocyte distribution width ratio 13.9 % 11.6-14.6 [facility] Erythrocyte distribution width (RBC) [Entitic vol] 51.1 fL High 35.1-43.[address] [facility] Erythrocyte distribution width standard deviation 51.1 fl High 35.1-43.9 [facility] Erythrocyte distribution wid th ratioOrdered By: Audra Drake on 06-22-2024 Erythrocyte distribution width (RBC) [Ratio] 13.9 % 11.6-14.6 [facility] Erythrocyte distribution wid th standard deviationOrdered By: Audra Drake on 06-22-2024 Erythrocyte distribution width (RBC) [Ratio] 51.1 fl High 35.1-43.9 [facility] GFR/1.73 sq M.predicted viji g non-blacks MDRD (S/P/Bld) [Vol rate/Area]Ordered By: Audra Drake on 06-22-2024 Estimated GFR (MDRD) Non-Af Amer 78 >60 [facility] Comment on above: mL/min/1.73m2 CKD-EP I Creatinine Equation (2020) Glomerular filtration rate (GFR) estimation/1.73 sq m using serum, plasma, or whole b 78 >60 [facility] Glomerular filtration rate ( GFR) estimation/1.73 sq m using serum, plasma, or whole bOrdered By: Audra Drake on 06-22-2024 GFR/1.73 sq M.predicted among non-blacks MDRD (S/P/Bld) [Vol rate/Area] 78 mL/min/{1.73_m2} >60 [facility] Glucose [Mass/Vol]Ordered By : Audra Drake on 06-22-2024 Serum glucose measurement (mass/volume) 91 mg/dL 70-99 [facility] Hematocrit Auto (Bld) [Volum e fraction]Ordered By: Audra Drake on 06-22-2024 Hematocrit (Bld) [Volume fraction] 35.7 % Low 37-47 [facility] Automated blood hematocrit (percentage) 35.7 % Low 37-47 [facility] Hemoglobin measurementOrdere d By: Audra Drake on 06-22-2024 Hemoglobin (Bld) [Mass/Vol] 11.6 g/dL Low 12.0-15. 0 [facility] Hemoglobin measurement 11.6 g/dL Low 12.0-15.0 [facility] Immature granulocytes/100 WB C Auto (Bld)Ordered By: Audra Drake on 06-22-2024 Immature granulocytes/100 WBC (Bld) 1.100 % High 0.0-0.9 [facility] Comment on above: IG% - Immature Granu locytes (promyelocytes, myelocytes and metamyelocytes) > 1% indicates that a LEFT SHIFT is Present. Automated immature granulocyte percentage 1.100 % High 0.0-0.9 [facility] Lymphocytes Auto (Unsp spec) [#/Vol]Ordered By: Audra Drake on 06-22-2024 Lymphocytes (Bld) [#/Vol] 1.15 10*3/uL 0.83-4.5 1 [facility] Absolute lymphocyte count 1.15 X10^3/uL 0.83-4. 51 [facility] Lymphocytes/100 WBC Auto (Un sp spec)Ordered By: Audra Drake on 06-22-2024 Lymphocytes/100 WBC (Bld) 16.2 % Low 19-41 [facility] Automated lymphocyte count as percentage of total leukocytes 16.2 % Low - [facility] MCV (RBC) [Entitic vol]Order ed By: Audra Drake on 06-22-2024 MCV (mean corpuscular volume) determination 100.3 fL High 81-99 [facility] MCV (mean corpuscular volume ) determinationOrdered By: Audra Drake on 06-22-2024 MCV (RBC) [Entitic vol] 100.3 fL High 81-99 [facility] Mean corpuscular hemoglobin (MCH) determinationOrdered By: Audra Drake on 06-22-2024 MCH (RBC) [Entitic mass] 32.6 pg High 27.0-32.0 [facility] Mean corpuscular hemoglobin (MCH) determination 32.6 pg High 27.0-32.0 [facility] Mean corpuscular hemoglobin concentration (MCHC) determinationOrdered By: Audra Drake on 06-22-2024 MCHC (RBC) [Mass/Vol] 32.5 g/dL 32-36 [facility] Mean corpuscular hemoglobin concentration (MCHC) determination 32.5 g/dL 32-36 [facility] Mean platelet volume determi nationOrdered By: Audra Drake on 06-22-2024 Platelet mean volume (Bld) [Entitic vol] 9.9 fL 6.2-12.0 [facility] Mean platelet volume determination 9.9 fl 6.2-12.0 [facility] Monocyte percentageOrdered B y: Audra Drake on 06-22-2024 Monocytes/100 WBC (Bld) 11.0 % High 0-10 [facility] Monocyte percentage 11.0 % High 0-10 [facility] Neutrophil percentageOrdered By: Audra Drake on 06-22-2024 Neutrophils/100 WBC (Bld) 68.8 % 47-70 [facility] Neutrophil percentage 68.8 % 47-70 [facility] Nucleated red blood cell per centageOrdered By: Audra Drake on 06-22-2024 Nucleated RBC/100 WBC (Bld) [Ratio] 0 % 0-5 [facility] Nucleated red blood cell percentage 0 % 0-5 [facility] Platelet countOrdered By: Dimitris Drake on 06-22-2024 Platelets (Bld) [#/Vol] 235 10*3/uL 150-450 [facility] Platelet count 235 K/mm3 150-450 [facility] Potassium (Unsp spec) [Mass/ Vol]Ordered By: Audra Drake on 06-22-2024 Potassium [Moles/Vol] 4.4 mmol/L 3.3-5.1 [facility] Potassium measurement (mass/volume) 4.4 mmol/L 3.3-5.1 [facility] Potassium measurement (mass/ volume)Ordered By: Audra Drake on 06-22-2024 Potassium (Unsp spec) [Mass/Vol] 4.4 mmol/L 3.3-5.1 [facility] RBC Auto (Bld) [#/Vol]Ordere d By: Audra Drake on 06-22-2024 RBC (Bld) [#/Vol] 3.56 10*6/uL Low 4.2-5.4 [facility] Automated blood erythrocyte count 3.56 M/mm3 Low 4.2-5.4 [facility] Serum creatinine measurement (mass/volume)Ordered By: Audra Drake on 06-22-2024 Creatinine [Mass/Vol] 0.78 mg/dL 0.70-1.20 [facility] Serum glucose measurement (m ass/volume)Ordered By: Audra Drake on 06-22-2024 Glucose [Mass/Vol] 91 mg/dL 70-[address] [facility] Serum or plasma calcium gianluca urement (mass/volume)Ordered By: Audra Drake on 06-22-2024 Calcium [Mass/Vol] 8.6 mg/dL 7.6-11.[address] [facility] Serum or plasma urea nitroge n measurement (mass/volume)Ordered By: Audra Drake on 06-22-2024 Urea nitrogen [Mass/Vol] 15 mg/dL - [facility] Sodium levelOrdered By: Cony Drake on 06-22-2024 Sodium [Moles/Vol] 138 mmol/L 133-[address] [facility] Sodium level 138 mmol/L 133-145 [facility] Urea nitrogen [Mass/Vol]Orde red By: Audra Drake on 06-22-2024 Serum or plasma urea nitrogen measurement (mass/volume) 15 mg/dL - [facility] White blood cell (WBC) count Ordered By: Audra Drake on 06-22-2024 WBC (Bld) [#/Vol] 7.1 10*3/uL 4.4-11.[address] [facility] White blood cell (WBC) count 7.1 K/mm3 4.4-11.0 [facility] Absolute lymphocyte countOrd ered By: Nikia Henderson on 06-15-2024 Lymphocytes Auto (Unsp spec) [#/Vol] 1.51 10*3/uL 0.83-4.51 [facility] Absolute neutrophil countOrd ered By: Nikia Henderson on 06-15-2024 Neutrophils (Bld) [#/Vol] 2.2 10*3/uL 2.0-7.7 [facility] Absolute neutrophil count 2.2 X10^3/uL 2.0-7.7 [facility] Anion gap [Moles/Vol]Ordered By: Nikia Henderson on 06-15-2024 Anion gap in Serum or Plasma 11 5-15 [facility] Anion gap in Serum or Plasma Ordered By: Nikia Henderson on 06-15-2024 Anion gap [Moles/Vol] 11 mmol/L 5-15 [facility] Automated lymphocyte count a s percentage of total leukocytesOrdered By: Nikia Henderson on 06-15-2024 Lymphocytes/100 WBC Auto (Unsp spec) 34.6 % 19-41 [facility] BUN/creatinine ratioOrdered By: Nikia Henderson on 06-15-2024 Urea nitrogen/Creatinine [Mass ratio] 22.9 mg/mg High 10-20 [facility] BUN/creatinine ratio 22.9 RATIO High 10-20 [facility] Basophil percentageOrdered B y: Nikia Henderson on 06-15-2024 Basophils/100 WBC (Bld) 0.5 % 0-1 [facility] Basophil percentage 0.5 % 0-1 [facility] Calcium [Mass/Vol]Ordered By : Nikia Henderson on 06-15-2024 Serum or plasma calcium measurement (mass/volume) 8.7 mg/dL 7.6-11.[address] [facility] Carbon dioxide, total [Moles /volume] in Central venous bloodOrdered By: Nikia Henderson on 06-15-2024 CO2 [Moles/Vol] 20.2 mmol/L Low 21.0-32.0 [facility] Carbon dioxide, total [Moles/volume] in Central venous blood 20.2 mmol/L Low 21.0-32.0 [facility] Chloride assayOrdered By: Cecilia Henderson on 06-15-2024 Chloride [Moles/Vol] 111 mmol/L High 98-108 [facility] Chloride assay 111 mmol/L High 98-108 [facility] Creatinine [Mass/Vol]Ordered By: Nikia Henderson on 06-15-2024 Serum creatinine measurement (mass/volume) 0.65 mg/dL Low 0.70-1.[address] [facility] Eosinophil percentageOrdered By: Nikia Henderson on 06-15-2024 Eosinophils/100 WBC (Bld) 2.1 % 0-5 [facility] Eosinophil percentage 2.1 % 0-5 [facility] Erythrocyte distribution wid th (RBC) [Ratio]Ordered By: Nikia Henderson on 06-15-2024 Erythrocyte distribution width ratio 14.2 % 11.6-14.6 [facility] Erythrocyte distribution width (RBC) [Entitic vol] 52.7 fL High 35.1-43.[address] [facility] Erythrocyte distribution width standard deviation 52.7 fl High 35.1-43.9 [facility] Erythrocyte distribution wid th ratioOrdered By: Nikia Henderson on 06-15-2024 Erythrocyte distribution width (RBC) [Ratio] 14.2 % 11.6-14.6 [facility] Erythrocyte distribution wid th standard deviationOrdered By: Nikia Henderson on 06-15-2024 Erythrocyte distribution width (RBC) [Ratio] 52.7 fl High 35.1-43.9 [facility] GFR/1.73 sq M.predicted viji g non-blacks MDRD (S/P/Bld) [Vol rate/Area]Ordered By: Nikia Henderson on 06-15-2024 Estimated GFR (MDRD) Non-Af Amer 90 >60 [facility] Comment on above: mL/min/1.73m2 CKD-EP I Creatinine Equation (2020) Glomerular filtration rate (GFR) estimation/1.73 sq m using serum, plasma, or whole b 90 >60 [facility] Glomerular filtration rate ( GFR) estimation/1.73 sq m using serum, plasma, or whole bOrdered By: Nikia Henderson on 06-15-2024 GFR/1.73 sq M.predicted among non-blacks MDRD (S/P/Bld) [Vol rate/Area] 90 mL/min/{1.73_m2} >60 [facility] Glucose [Mass/Vol]Ordered By : Nikia Henderson on 06-15-2024 Serum glucose measurement (mass/volume) 83 mg/dL 70-99 [facility] Hematocrit Auto (Bld) [Volum e fraction]Ordered By: Nikia Henderson on 06-15-2024 Hematocrit (Bld) [Volume fraction] 39.1 % 37-47 [facility] Automated blood hematocrit (percentage) 39.1 % 37-47 [facility] Hemoglobin measurementOrdere d By: Nikia Henderson on 06-15-2024 Hemoglobin (Bld) [Mass/Vol] 12.4 g/dL 12.0-15. 0 [facility] Hemoglobin measurement 12.4 g/dL 12.0-15.0 [facility] Immature granulocytes/100 WB C Auto (Bld)Ordered By: Nikia Henderson on 06-15-2024 Immature granulocytes/100 WBC (Bld) 0.700 % 0.0-0.9 [facility] Comment on above: IG% - Immature Granu locytes (promyelocytes, myelocytes and metamyelocytes) > 1% indicates that a LEFT SHIFT is Present. Automated immature granulocyte percentage 0.700 % 0.0-0.9 [facility] Lymphocytes Auto (Unsp spec) [#/Vol]Ordered By: Nikia Henderson on 06-15-2024 Lymphocytes (Bld) [#/Vol] 1.51 10*3/uL 0.83-4.5 1 [facility] Absolute lymphocyte count 1.51 X10^3/uL 0.83-4. 51 [facility] Lymphocytes/100 WBC Auto (Un sp spec)Ordered By: Nikia Henderson on 06-15-2024 Lymphocytes/100 WBC (Bld) 34.6 % [facility] Automated lymphocyte count as percentage of total leukocytes 34.6 % -41 [facility] MCV (RBC) [Entitic vol]Order ed By: Nikia Henderson on 06-15-2024 MCV (mean corpuscular volume) determination 100.8 fL High 81-99 [facility] MCV (mean corpuscular volume ) determinationOrdered By: Nikia Henderson on 06-15-2024 MCV (RBC) [Entitic vol] 100.8 fL High 81-99 [facility] Mean corpuscular hemoglobin (MCH) determinationOrdered By: Nikia Henderson on 06-15-2024 MCH (RBC) [Entitic mass] 32.0 pg 27.0-32.0 [facility] Mean corpuscular hemoglobin (MCH) determination 32.0 pg 27.0-32.0 [facility] Mean corpuscular hemoglobin concentration (MCHC) determinationOrdered By: Nikia Henderson on 06-15-2024 MCHC (RBC) [Mass/Vol] 31.7 g/dL Low 32-36 [facility] Mean corpuscular hemoglobin concentration (MCHC) determination 31.7 g/dL Low 32-36 [facility] Mean platelet volume determi nationOrdered By: Nikia Henderson on 06-15-2024 Platelet mean volume (Bld) [Entitic vol] 9.6 fL 6.2-12.0 [facility] Mean platelet volume determination 9.6 fl 6.2-12.0 [facility] Monocyte percentageOrdered B y: Nikia Henderson on 06-15-2024 Monocytes/100 WBC (Bld) 11.5 % High 0-10 [facility] Monocyte percentage 11.5 % High 0-10 [facility] Neutrophil percentageOrdered By: Nikia Henderson on 06-15-2024 Neutrophils/100 WBC (Bld) 50.6 % 47-70 [facility] Neutrophil percentage 50.6 % 47-70 [facility] Nucleated red blood cell per centageOrdered By: Nikia Henderson on 06-15-2024 Nucleated RBC/100 WBC (Bld) [Ratio] 0 % 0-5 [facility] Nucleated red blood cell percentage 0 % 0-5 [facility] Platelet countOrdered By: Cecilia Henderson on 06-15-2024 Platelets (Bld) [#/Vol] 215 10*3/uL 150-450 [facility] Platelet count 215 K/mm3 150-450 [facility] Potassium (Unsp spec) [Mass/ Vol]Ordered By: Nikia Henderson on 06-15-2024 Potassium [Moles/Vol] 4.7 mmol/L 3.3-5.1 [facility] Comment on above: Hemolysis present, R esults could be affected. Potassium measurement (mass/volume) 4.7 mmol/L 3.3-5.1 [facility] Potassium measurement (mass/ volume)Ordered By: Nikia Henderson on 06-15-2024 Potassium (Unsp spec) [Mass/Vol] 4.7 mmol/L 3.3-5.1 [facility] RBC Auto (Bld) [#/Vol]Ordere d By: Nikia Henderson on 06-15-2024 RBC (Bld) [#/Vol] 3.88 10*6/uL Low 4.2-5.4 [facility] Automated blood erythrocyte count 3.88 M/mm3 Low 4.2-5.4 [facility] Serum creatinine measurement (mass/volume)Ordered By: Nikia Henderson on 06-15-2024 Creatinine [Mass/Vol] 0.65 mg/dL Low 0.70-1.20 [facility] Serum glucose measurement (m ass/volume)Ordered By: Nikia Henderson on 06-15-2024 Glucose [Mass/Vol] 83 mg/dL 70-[address] [facility] Serum or plasma calcium gianluca urement (mass/volume)Ordered By: Nikia Henderson on 06-15-2024 Calcium [Mass/Vol] 8.7 mg/dL 7.6-11.[address] [facility] Serum or plasma urea nitroge n measurement (mass/volume)Ordered By: Nikia Henderson on 06-15-2024 Urea nitrogen [Mass/Vol] 15 mg/dL 07-17 [facility] Sodium levelOrdered By: Catalina connerling Beatriz on 06-15-2024 Sodium [Moles/Vol] 142 mmol/L 133-[address] [facility] Sodium level 142 mmol/L 133-145 [facility] Urea nitrogen [Mass/Vol]Orde red By: Nikia Henderson on 06-15-2024 Serum or plasma urea nitrogen measurement (mass/volume) 15 mg/dL - [facility] White blood cell (WBC) count Ordered By: Nikia Henderson on 06-15-2024 WBC (Bld) [#/Vol] 4.4 10*3/uL 4.4-11.[address] [facility] White blood cell (WBC) count 4.4 K/mm3 4.-11.0 [facility] Absolute lymphocyte countOrd ered By: Nikia Henderson on 06-08-2024 Lymphocytes Auto (Unsp spec) [#/Vol] 1.41 10*3/uL 0.83-4.51 [facility] Absolute neutrophil countOrd ered By: Nikia Henderson on 06-08-2024 Neutrophils (Bld) [#/Vol] 3.7 10*3/uL 2.0-7.7 [facility] Absolute neutrophil count 3.7 X10^3/uL 2.0-7.7 [facility] Anion gap [Moles/Vol]Ordered By: Nikia Henderson on 06-08-2024 Anion gap in Serum or Plasma 10 5- [facility] Anion gap in Serum or Plasma Ordered By: Nikia Henderson on 06-08-2024 Anion gap [Moles/Vol] 10 mmol/L 08-12 [facility] Automated lymphocyte count a s percentage of total leukocytesOrdered By: Nikia Henderson on 06-08-2024 Lymphocytes/100 WBC Auto (Unsp spec) 23.7 % [facility] BUN/creatinine ratioOrdered By: Nikia Henderson on 06-08-2024 Urea nitrogen/Creatinine [Mass ratio] 29.4 mg/mg High 10- [facility] BUN/creatinine ratio 29.4 RATIO High 10-20 [facility] Basophil percentageOrdered B y: Nikia Henderson on 06-08-2024 Basophils/100 WBC (Bld) 0.3 % 0-1 [facility] Basophil percentage 0.3 % 0-1 [facility] Calcium [Mass/Vol]Ordered By : Nikia Henderson on 06-08-2024 Serum or plasma calcium measurement (mass/volume) 8.9 mg/dL 7.6-11.[address] [facility] Carbon dioxide, total [Moles /volume] in Central venous bloodOrdered By: Nikia Henderson on 06-08-2024 CO2 [Moles/Vol] 21.5 mmol/L 21.0-32.0 [facility] Carbon dioxide, total [Moles/volume] in Central venous blood 21.5 mmol/L 21.0-32.0 [facility] Chloride assayOrdered By: Cecilia Henderson on 06-08-2024 Chloride [Moles/Vol] 110 mmol/L High 98-108 [facility] Chloride assay 110 mmol/L High 98-108 [facility] Creatinine [Mass/Vol]Ordered By: Nikia Henderson on 06-08-2024 Serum creatinine measurement (mass/volume) 0.68 mg/dL Low 0.70-1.[address] [facility] Eosinophil percentageOrdered By: Nikia Henderson on 06-08-2024 Eosinophils/100 WBC (Bld) 3.2 % 0-5 [facility] Eosinophil percentage 3.2 % 0-5 [facility] Erythrocyte distribution wid th (RBC) [Ratio]Ordered By: Nikia Henderson on 06-08-2024 Erythrocyte distribution width ratio 14.5 % 11.6-14.6 [facility] Erythrocyte distribution width (RBC) [Entitic vol] 53.2 fL High 35.1-43.[address] [facility] Erythrocyte distribution width standard deviation 53.2 fl High 35.1-43.9 [facility] Erythrocyte distribution wid th ratioOrdered By: Nikia Henderson on 06-08-2024 Erythrocyte distribution width (RBC) [Ratio] 14.5 % 11.6-14.6 [facility] Erythrocyte distribution wid th standard deviationOrdered By: Nikia Henderson on 06-08-2024 Erythrocyte distribution width (RBC) [Ratio] 53.2 fl High 35.1-43.9 [facility] GFR/1.73 sq M.predicted viji g non-blacks MDRD (S/P/Bld) [Vol rate/Area]Ordered By: Nikia Henderson on 06-08-2024 Estimated GFR (MDRD) Non-Af Amer 89 >60 [facility] Comment on above: mL/min/1.73m2 CKD-EP I Creatinine Equation (2020) Glomerular filtration rate (GFR) estimation/1.73 sq m using serum, plasma, or whole b 89 >60 [facility] Glomerular filtration rate ( GFR) estimation/1.73 sq m using serum, plasma, or whole bOrdered By: Nikia Henderson on 06-08-2024 GFR/1.73 sq M.predicted among non-blacks MDRD (S/P/Bld) [Vol rate/Area] 89 mL/min/{1.73_m2} >60 [facility] Glucose [Mass/Vol]Ordered By : Nikia Henderson on 06-08-2024 Serum glucose measurement (mass/volume) 85 mg/dL 70-99 [facility] Hematocrit Auto (Bld) [Volum e fraction]Ordered By: Nikia Henderson on 06-08-2024 Hematocrit (Bld) [Volume fraction] 35.9 % Low 37-47 [facility] Automated blood hematocrit (percentage) 35.9 % Low 37-47 [facility] Hemoglobin measurementOrdere d By: Nikia Henderson on 06-08-2024 Hemoglobin (Bld) [Mass/Vol] 11.5 g/dL Low 12.0-15. 0 [facility] Hemoglobin measurement 11.5 g/dL Low 12.0-15.0 [facility] Immature granulocytes/100 WB C Auto (Bld)Ordered By: Nikia Henderson on 06-08-2024 Immature granulocytes/100 WBC (Bld) 0.300 % 0.0-0.9 [facility] Comment on above: IG% - Immature Granu locytes (promyelocytes, myelocytes and metamyelocytes) > 1% indicates that a LEFT SHIFT is Present. Automated immature granulocyte percentage 0.300 % 0.0-0.9 [facility] Lymphocytes Auto (Unsp spec) [#/Vol]Ordered By: Nikia Henderson on 06-08-2024 Lymphocytes (Bld) [#/Vol] 1.41 10*3/uL 0.83-4.5 1 [facility] Absolute lymphocyte count 1.41 X10^3/uL 0.83-4. 51 [facility] Lymphocytes/100 WBC Auto (Un sp spec)Ordered By: Nikia Henderson on 06-08-2024 Lymphocytes/100 WBC (Bld) 23.7 % [facility] Automated lymphocyte count as percentage of total leukocytes 23.7 % [facility] MCV (RBC) [Entitic vol]Order ed By: Nikia Henderson on 06-08-2024 MCV (mean corpuscular volume) determination 100.3 fL High 81-99 [facility] MCV (mean corpuscular volume ) determinationOrdered By: Nikia Henderson on 06-08-2024 MCV (RBC) [Entitic vol] 100.3 fL High 81-99 [facility] Mean corpuscular hemoglobin (MCH) determinationOrdered By: Nikia Henderson on 06-08-2024 MCH (RBC) [Entitic mass] 32.1 pg High 27.0-32.0 [facility] Mean corpuscular hemoglobin (MCH) determination 32.1 pg High 27.0-32.0 [facility] Mean corpuscular hemoglobin concentration (MCHC) determinationOrdered By: Nikia Henderson on 06-08-2024 MCHC (RBC) [Mass/Vol] 32.0 g/dL -36 [facility] Mean corpuscular hemoglobin concentration (MCHC) determination 32.0 g/dL -36 [facility] Mean platelet volume determi nationOrdered By: Nikia Henderson on 06-08-2024 Platelet mean volume (Bld) [Entitic vol] 9.4 fL 6.2-12.0 [facility] Mean platelet volume determination 9.4 fl 6.2-12.0 [facility] Monocyte percentageOrdered B y: Nikia Henderson on 06-08-2024 Monocytes/100 WBC (Bld) 9.4 % 0-10 [facility] Monocyte percentage 9.4 % 0-10 [facility] Neutrophil percentageOrdered By: Nikia Henderson on 06-08-2024 Neutrophils/100 WBC (Bld) 63.1 % 47-70 [facility] Neutrophil percentage 63.1 % 47-70 [facility] Nucleated red blood cell per centageOrdered By: Nikia Henderson on 06-08-2024 Nucleated RBC/100 WBC (Bld) [Ratio] 0 % 0-5 [facility] Nucleated red blood cell percentage 0 % 0-5 [facility] Platelet countOrdered By: Cecilia guanakoterra Henderson on 06-08-2024 Platelets (Bld) [#/Vol] 244 10*3/uL 150-450 [facility] Platelet count 244 K/mm3 150-450 [facility] Potassium (Unsp spec) [Mass/ Vol]Ordered By: Nikia Henderson on 06-08-2024 Potassium [Moles/Vol] 4.3 mmol/L 3.3-5.1 [facility] Potassium measurement (mass/volume) 4.3 mmol/L 3.3-5.1 [facility] Potassium measurement (mass/ volume)Ordered By: Nikia Henderson on 06-08-2024 Potassium (Unsp spec) [Mass/Vol] 4.3 mmol/L 3.3-5.1 [facility] RBC Auto (Bld) [#/Vol]Ordere d By: Nikia Henderson on 06-08-2024 RBC (Bld) [#/Vol] 3.58 10*6/uL Low 4.2-5.4 [facility] Automated blood erythrocyte count 3.58 M/mm3 Low 4.2-5.4 [facility] Serum creatinine measurement (mass/volume)Ordered By: Nikia Henderson on 06-08-2024 Creatinine [Mass/Vol] 0.68 mg/dL Low 0.70-1.20 [facility] Serum glucose measurement (m ass/volume)Ordered By: Nikia Henderson on 06-08-2024 Glucose [Mass/Vol] 85 mg/dL 70-[address] [facility] Serum or plasma calcium gianluca urement (mass/volume)Ordered By: Nikia Henderson on 06-08-2024 Calcium [Mass/Vol] 8.9 mg/dL 7.6-11.[address] [facility] Serum or plasma urea nitroge n measurement (mass/volume)Ordered By: Nikia Henderson on 06-08-2024 Urea nitrogen [Mass/Vol] 20 mg/dL High 4-19 [facility] Sodium levelOrdered By: Catalina Henderson on 06-08-2024 Sodium [Moles/Vol] 141 mmol/L 133-[address] [facility] Sodium level 141 mmol/L 133-145 [facility] Urea nitrogen [Mass/Vol]Orde red By: Nikia Henderson on 06-08-2024 Serum or plasma urea nitrogen measurement (mass/volume) 20 mg/dL High 4-19 [facility] White blood cell (WBC) count Ordered By: Nikia Henderson on 06-08-2024 WBC (Bld) [#/Vol] 5.9 10*3/uL 4.4-11.[address] [facility] White blood cell (WBC) count 5.9 K/mm3 4.4-11.0 [facility] Absolute lymphocyte countOrd ered By: Nikia Henderson on 06-01-2024 Lymphocytes Auto (Unsp spec) [#/Vol] 1.46 10*3/uL 0.83-4.51 [facility] Absolute neutrophil countOrd ered By: Nikia Henderson on 06-01-2024 Neutrophils (Bld) [#/Vol] 5.2 10*3/uL 2.0-7.7 [facility] Absolute neutrophil count 5.2 X10^3/uL 2.0-7.7 [facility] Anion gap [Moles/Vol]Ordered By: Nikia Henderson on 06-01-2024 Anion gap in Serum or Plasma 11 5-15 [facility] Anion gap in Serum or Plasma Ordered By: Nikia Henderson on 06-01-2024 Anion gap [Moles/Vol] 11 mmol/L 5-15 [facility] Automated lymphocyte count a s percentage of total leukocytesOrdered By: Nikia Henderson on 06-01-2024 Lymphocytes/100 WBC Auto (Unsp spec) 19.4 % 19-41 [facility] BUN/creatinine ratioOrdered By: Nikia Henderson on 06-01-2024 Urea nitrogen/Creatinine [Mass ratio] 30.2 mg/mg High 10-20 [facility] BUN/creatinine ratio 30.2 RATIO High 10-20 [facility] Basophil percentageOrdered B y: Nikia Henderson on 06-01-2024 Basophils/100 WBC (Bld) 0.7 % 0-1 [facility] Basophil percentage 0.7 % 0-1 [facility] Calcium [Mass/Vol]Ordered By : Nikia Henderson on 06-01-2024 Serum or plasma calcium measurement (mass/volume) 9.0 mg/dL 7.6-11.[address] [facility] Carbon dioxide, total [Moles /volume] in Central venous bloodOrdered By: Nikia Henderson on 06-01-2024 CO2 [Moles/Vol] 20.7 mmol/L Low 21.0-32.0 [facility] Carbon dioxide, total [Moles/volume] in Central venous blood 20.7 mmol/L Low 21.0-32.0 [facility] Chloride assayOrdered By: Cecilia Henderson on 06-01-2024 Chloride [Moles/Vol] 110 mmol/L High 98-108 [facility] Chloride assay 110 mmol/L High 98-108 [facility] Creatinine [Mass/Vol]Ordered By: Nikia Henderson on 06-01-2024 Serum creatinine measurement (mass/volume) 0.72 mg/dL 0.70-1.[address] [facility] Eosinophil percentageOrdered By: Nikia Henderson on 06-01-2024 Eosinophils/100 WBC (Bld) 1.6 % 0-5 [facility] Eosinophil percentage 1.6 % 0-5 [facility] Erythrocyte distribution wid th (RBC) [Ratio]Ordered By: Nikia Henderson on 06-01-2024 Erythrocyte distribution width ratio 14.1 % 11.6-14.6 [facility] Erythrocyte distribution width (RBC) [Entitic vol] 51.8 fL High 35.1-43.[address] [facility] Erythrocyte distribution width standard deviation 51.8 fl High 35.1-43.9 [facility] Erythrocyte distribution wid th ratioOrdered By: Catalinapie townheladio Henderson on 06-01-2024 Erythrocyte distribution width (RBC) [Ratio] 14.1 % 11.6-14.6 [facility] Erythrocyte distribution wid th standard deviationOrdered By: Catalinapie townheladio Henderson on 06-01-2024 Erythrocyte distribution width (RBC) [Ratio] 51.8 fl High 35.1-43.9 [facility] GFR/1.73 sq M.predicted viji g non-blacks MDRD (S/P/Bld) [Vol rate/Area]Ordered By: Nikia Henderson on 06-01-2024 Estimated GFR (MDRD) Non-Af Amer 86 >60 [facility] Comment on above: mL/min/1.73m2 CKD-EP I Creatinine Equation (2020) Glomerular filtration rate (GFR) estimation/1.73 sq m using serum, plasma, or whole b 86 >60 [facility] Glomerular filtration rate ( GFR) estimation/1.73 sq m using serum, plasma, or whole bOrdered By: Nikia Henderson on 06-01-2024 GFR/1.73 sq M.predicted among non-blacks MDRD (S/P/Bld) [Vol rate/Area] 86 mL/min/{1.73_m2} >60 [facility] Glucose [Mass/Vol]Ordered By : Nikia Henderson on 06-01-2024 Serum glucose measurement (mass/volume) 94 mg/dL 70-99 [facility] Hematocrit Auto (Bld) [Volum e fraction]Ordered By: Nikia Henderson on 06-01-2024 Hematocrit (Bld) [Volume fraction] 36.4 % Low 37-47 [facility] Automated blood hematocrit (percentage) 36.4 % Low 37-47 [facility] Hemoglobin measurementOrdere d By: Nikia Henderson on 06-01-2024 Hemoglobin (Bld) [Mass/Vol] 11.7 g/dL Low 12.0-15. 0 [facility] Hemoglobin measurement 11.7 g/dL Low 12.0-15.0 [facility] Immature granulocytes/100 WB C Auto (Bld)Ordered By: Nikia Henderson on 06-01-2024 Immature granulocytes/100 WBC (Bld) 0.400 % 0.0-0.9 [facility] Comment on above: IG% - Immature Granu locytes (promyelocytes, myelocytes and metamyelocytes) > 1% indicates that a LEFT SHIFT is Present. Automated immature granulocyte percentage 0.400 % 0.0-0.9 [facility] Lymphocytes Auto (Unsp spec) [#/Vol]Ordered By: Nikia Henderson on 06-01-2024 Lymphocytes (Bld) [#/Vol] 1.46 10*3/uL 0.83-4.5 1 [facility] Absolute lymphocyte count 1.46 X10^3/uL 0.83-4. 51 [facility] Lymphocytes/100 WBC Auto (Un sp spec)Ordered By: Nikia Henderson on 06-01-2024 Lymphocytes/100 WBC (Bld) 19.4 % [facility] Automated lymphocyte count as percentage of total leukocytes 19.4 % [facility] MCV (RBC) [Entitic vol]Order ed By: Nikia Henderson on 06-01-2024 MCV (mean corpuscular volume) determination 100.6 fL High 81-99 [facility] MCV (mean corpuscular volume ) determinationOrdered By: Nikia Henderson on 06-01-2024 MCV (RBC) [Entitic vol] 100.6 fL High 81-99 [facility] Mean corpuscular hemoglobin (MCH) determinationOrdered By: Nikia Henderson on 06-01-2024 MCH (RBC) [Entitic mass] 32.3 pg High 27.0-32.0 [facility] Mean corpuscular hemoglobin (MCH) determination 32.3 pg High 27.0-32.0 [facility] Mean corpuscular hemoglobin concentration (MCHC) determinationOrdered By: Nikia Henderson on 06-01-2024 MCHC (RBC) [Mass/Vol] 32.1 g/dL 32-36 [facility] Mean corpuscular hemoglobin concentration (MCHC) determination 32.1 g/dL -36 [facility] Mean platelet volume determi nationOrdered By: Nikia Henderson on 06-01-2024 Platelet mean volume (Bld) [Entitic vol] 9.8 fL 6.2-12.0 [facility] Mean platelet volume determination 9.8 fl 6.2-12.0 [facility] Monocyte percentageOrdered B y: Nikia Henderson on 06-01-2024 Monocytes/100 WBC (Bld) 8.5 % 0-10 [facility] Monocyte percentage 8.5 % 0-10 [facility] Neutrophil percentageOrdered By: Nikia Henderson on 06-01-2024 Neutrophils/100 WBC (Bld) 69.4 % 47-70 [facility] Neutrophil percentage 69.4 % 47-70 [facility] Nucleated red blood cell per centageOrdered By: Nikia Henderson on 06-01-2024 Nucleated RBC/100 WBC (Bld) [Ratio] 0 % 0-5 [facility] Nucleated red blood cell percentage 0 % 0-5 [facility] Platelet countOrdered By: Cecilia Henderson on 06-01-2024 Platelets (Bld) [#/Vol] 234 10*3/uL 150-450 [facility] Platelet count 234 K/mm3 150-450 [facility] Potassium (Unsp spec) [Mass/ Vol]Ordered By: Nikia Henderson on 06-01-2024 Potassium [Moles/Vol] 4.4 mmol/L 3.3-5.1 [facility] Potassium measurement (mass/volume) 4.4 mmol/L 3.3-5.1 [facility] Potassium measurement (mass/ volume)Ordered By: Nikia Henderson on 06-01-2024 Potassium (Unsp spec) [Mass/Vol] 4.4 mmol/L 3.3-5.1 [facility] RBC Auto (Bld) [#/Vol]Ordere d By: Nikia Henderson on 06-01-2024 RBC (Bld) [#/Vol] 3.62 10*6/uL Low 4.2-5.4 [facility] Automated blood erythrocyte count 3.62 M/mm3 Low 4.2-5.4 [facility] Serum creatinine measurement (mass/volume)Ordered By: Nikia Henderson on 06-01-2024 Creatinine [Mass/Vol] 0.72 mg/dL 0.70-1.20 [facility] Serum glucose measurement (m ass/volume)Ordered By: Nikia Henderson on 06-01-2024 Glucose [Mass/Vol] 94 mg/dL 70-[address] [facility] Serum or plasma calcium gianluca urement (mass/volume)Ordered By: Nikia Henderson on 06-01-2024 Calcium [Mass/Vol] 9.0 mg/dL 7.6-11.[address] [facility] Serum or plasma urea nitroge n measurement (mass/volume)Ordered By: Nikia Henderson on 06-01-2024 Urea nitrogen [Mass/Vol] 22 mg/dL High 07-17 [facility] Sodium levelOrdered By: Catalina Henderson on 06-01-2024 Sodium [Moles/Vol] 142 mmol/L 133-[address] [facility] Sodium level 142 mmol/L 133-145 [facility] Urea nitrogen [Mass/Vol]Orde red By: Nikia Henderson on 06-01-2024 Serum or plasma urea nitrogen measurement (mass/volume) 22 mg/dL High - [facility] White blood cell (WBC) count Ordered By: Nikia Henderson on 06-01-2024 WBC (Bld) [#/Vol] 7.5 10*3/uL 4.4-11.[address] [facility] White blood cell (WBC) count 7.5 K/mm3 4.4-11.0 [facility] Basic Metabolic Profile (BMP )on 05-28-2024 BUN Normal 7-18 [facility] Comment on above: Result Comment: Canc elled via OM: Order cancelled - Patient discharged Performed By: #### L 500.2500, L100.0100 ####[facility] [address] [place], [address] BUN/CRE Normal 10-20 [facility] Comment on above: Result Comment: Canc elled via OM: Order cancelled - Patient discharged Performed By: #### L 500.2500, L100.0100 ####[facility] [address] [place], [address] CA,Total Normal 8.5-10.1 [facility] Comment on above: Result Comment: Canc elled via OM: Order cancelled - Patient discharged Performed By: #### L 500.2500, L100.0100 ####[facility] [address] [place], [address] CL Normal 98-107 [facility] Comment on above: Result Comment: Canc elled via OM: Order cancelled - Patient discharged Performed By: #### L 500.2500, L100.0100 ####[facility] [address] [place], [address] CO2 Normal 21.0-32.0 [facility] Comment on above: Result Comment: Canc elled via OM: Order cancelled - Patient discharged Performed By: #### L 500.2500, L100.0100 ####[facility] [address] [place], [address] CREAT,SERUM Normal 0.55-1.02 [facility] Comment on above: Result Comment: Canc elled via OM: Order cancelled - Patient discharged Performed By: #### L 500.2500, L100.0100 ####[facility] [address] [place], [address] EST GFR Normal >60 [facility] Comment on above: Result Comment: Canc elled via OM: Order cancelled - Patient discharged Performed By: #### L 500.2500, L100.0100 ####[facility] [address] [place], [address] EST GFR - AA Normal >60 [facility] Comment on above: Result Comment: Canc elled via OM: Order cancelled - Patient discharged Performed By: #### L 500.2500, L100.0100 ####[facility] [address] [place], [address] GAP Normal 5-15 [facility] Comment on above: Result Comment: Canc elled via OM: Order cancelled - Patient discharged Performed By: #### L 500.2500, L100.0100 ####[facility] [address] [place], [address] GLU Normal 74-106 [facility] Comment on above: Result Comment: Canc elled via OM: Order cancelled - Patient discharged Performed By: #### L 500.2500, L100.0100 ####[facility] [address] [place], [address] Potassium Normal 3.5-5.1 [facility] Comment on above: Result Comment: Canc elled via OM: Order cancelled - Patient discharged Performed By: #### L 500.2500, L100.0100 ####[facility] [address] [place], [address] Basic Metabolic Profile (BMP) Normal 136-145 [facility] Comment on above: Result Comment: Canc elled via OM: Order cancelled - Patient discharged Performed By: #### L 500.2500, L100.0100 ####[facility] [address] [place], [address] CBC W/Diff, Automatedon - Absolute Neut Normal 2.0-7.7 [facility] Comment on above: Result Comment: Canc elled via OM: Order cancelled - Patient discharged Performed By: #### L 500.2500, L100.0100 ####[facility] [address] [place], [address] HCT Normal 37-47 [facility] Comment on above: Result Comment: Canc elled via OM: Order cancelled - Patient discharged Performed By: #### L 500.2500, L100.0100 ####[facility] [address] [place], [address] HGB Normal 12.0-15.0 [facility] Comment on above: Result Comment: Canc elled via OM: Order cancelled - Patient discharged Performed By: #### L 500.2500, L100.0100 ####[facility] [address] [place], [address] MCH Normal 27.0-32.0 [facility] Comment on above: Result Comment: Canc elled via OM: Order cancelled - Patient discharged Performed By: #### L 500.2500, L100.0100 ####[facility] [address] [place], [address] MCHC Normal 32-36 [facility] Comment on above: Result Comment: Canc elled via OM: Order cancelled - Patient discharged Performed By: #### L 500.2500, L100.0100 ####[facility] [address] [place], [address] MCV Normal 81-99 [facility] Comment on above: Result Comment: Canc elled via OM: Order cancelled - Patient discharged Performed By: #### L 500.2500, L100.0100 ####[facility] [address] [place], [address] NEUT% Normal 47-70 [facility] Comment on above: Result Comment: Canc elled via OM: Order cancelled - Patient discharged Performed By: #### L 500.2500, L100.0100 ####[facility] [address] [place], [address] PLT Normal 150-450 [facility] Comment on above: Result Comment: Canc elled via OM: Order cancelled - Patient discharged Performed By: #### L 500.2500, L100.0100 ####[facility] [address] [place], [address] RBC Normal 4.2-5.4 [facility] Comment on above: Result Comment: Canc elled via OM: Order cancelled - Patient discharged Performed By: #### L 500.2500, L100.0100 ####[facility] [address] [place], [address] RDW CV Normal 11.6-14.6 [facility] Comment on above: Result Comment: Canc elled via OM: Order cancelled - Patient discharged Performed By: #### L 500.2500, L100.0100 ####[facility] [address] [place], [address] RDW SD Normal 35.1-43.9 [facility] Comment on above: Result Comment: Canc elled via OM: Order cancelled - Patient discharged Performed By: #### L 500.2500, L100.0100 ####[facility] [address] [place], [address] WBC Normal 4.4-11.0 [facility] Comment on above: Result Comment: Canc elled via OM: Order cancelled - Patient discharged Performed By: #### L 500.2500, L100.0100 ####[facility] [address] [place], [address] Absolute lymphocyte countOrd ered By: Michael Snowden on 05-21-2024 Lymphocytes Auto (Unsp spec) [#/Vol] 1.68 10*3/uL 0.83-4.51 [facility] Absolute neutrophil countOrd ered By: Michael Snowden on 05-21-2024 Neutrophils (Bld) [#/Vol] 6.3 10*3/uL 2.0-7.7 [facility] Absolute neutrophil count 6.3 X10^3/uL 2.0-7.7 [facility] Automated lymphocyte count a s percentage of total leukocytesOrdered By: Michael Snowden on 05-21-2024 Lymphocytes/100 WBC Auto (Unsp spec) 18.3 % Low 19-41 [facility] Basic Metabolic Profile (BMP )on 05-21-2024 BUN/CRE 39.8 RATIO High 10-20 [facility] Comment on above: Performed By: #### L 500.2500, L100.0100 ####[facility] [address] [place], [address] CA,Total 8.9 mg/dL Normal 8.5-10.1 [facility] Comment on above: Performed By: #### L 500.2500, L100.0100 ####[facility] [address] [place], [address] Chloride [Moles/Vol] 109 mmol/L High 98-107 [facility] Comment on above: Performed By: #### L 500.2500, L100.0100 ####[facility] [address] [place], [address] CO2 [Moles/Vol] 22.0 mmol/L Normal 21.0-32.0 [facility] Comment on above: Performed By: #### L 500.2500, L100.0100 ####[facility] [address] [place], [address] Creatinine [Mass/Vol] 0.80 mg/dL Normal 0.55-1.02 [facility] Comment on above: Result Comment: The validity of the calculated GFR GFRAA in patients over70 years has not been determined. Clinical correlation isessential. Performed By: #### L 500.2500, L100.0100 ####[facility] [address] [place], [address] ECRCL 50.86 ml/min Normal [facility] Comment on above: Performed By: #### L 500.2500, L100.0100 ####[facility] [address] [place], [address] EST GFR - AA 89 mL/min Normal >60 [facility] Comment on above: Result Comment: Afri can Omani GFR Calc Performed By: #### L 500.2500, L100.0100 ####[facility] [address] [place], [address] GAP 9 Normal 5-15 [facility] Comment on above: Performed By: #### L 500.2500, L100.0100 ####[facility] [address] [place], [address] GFR/1.73 sq M.predicted among non-blacks MDRD (S/P/Bld) [Vol rate/Area] 73 mL/min/{1.73_m2} Normal >60 [facility] Comment on above: Result Comment: Non- GFR Calc Performed By: #### L 500.2500, L100.0100 ####[facility] [address] [place], [address] Glucose [Mass/Vol] 85 mg/dL Normal 74-[address] [facility] Comment on above: Performed By: #### L 500.2500, L100.0100 ####[facility] [address] [place], [address] Potassium [Moles/Vol] 5.1 mmol/L Normal 3.5-5.1 [facility] Comment on above: Performed By: #### L 500.2500, L100.0100 ####[facility] [address] [place], [address] Sodium [Moles/Vol] 140 mmol/L Normal 136-[address] [facility] Comment on above: Performed By: #### L 500.2500, L100.0100 ####[facility] [address] [place], [address] Urea nitrogen [Mass/Vol] 32 mg/dL High 7-18 [facility] Comment on above: Performed By: #### L 500.2500, L100.0100 ####[facility] [address] [place], [address] Basophil percentageOrdered B y: Michael Amezquitaok on 05-21-2024 Basophils/100 WBC (Bld) 0.1 % 0-1 [facility] Basophil percentage 0.1 % 0-1 [facility] Blood urea nitrogen (BUN)/cr eatinine ratioOrdered By: Michael Snowden on 05-21-2024 Urea nitrogen/Creatinine [Mass ratio] 39.8 mg/mg High 10-20 [facility] Blood urea nitrogen (BUN)/creatinine ratio 39.8 RATIO High 10-20 [facility] CBC W/Diff, Automatedon 05-02 Absolute Lymph 1.68 X10 3/uL Normal 0.83-4.51 [facility] Comment on above: Performed By: #### L 500.2500, L100.0100 ####[facility] [address] [place], [address] Absolute Neut 6.3 X10 3/uL Normal 2.0-7.7 [facility] Comment on above: Performed By: #### L 500.2500, L100.0100 ####[facility] [address] [place], [address] Basophils/100 WBC (Bld) 0.1 % Normal 0-1 [facility] Comment on above: Performed By: #### L 500.2500, L100.0100 ####[facility] [address] [place], [address] Eosinophils/100 WBC (Bld) 0.4 % Normal 0-5 [facility] Comment on above: Performed By: #### L 500.2500, L100.0100 ####[facility] [address] [place], [address] Erythrocyte distribution width (RBC) [Ratio] 14.3 % Normal 11.6-14.6 [facility] Comment on above: Performed By: #### L 500.2500, L100.0100 ####[facility] [address] [place], [address] Hematocrit (Bld) [Volume fraction] 34.3 % Low 37-47 [facility] Comment on above: Performed By: #### L 500.2500, L100.0100 ####[facility] [address] [place], [address] Hemoglobin (Bld) [Mass/Vol] 11.0 g/dL Low 12.0-15. 0 [facility] Comment on above: Performed By: #### L 500.2500, L100.0100 ####[facility] [address] [place], [address] IG% 2.600 High 0.0-0.9 [facility] Comment on above: Result Comment: IG% - Immature Granulocytes (promyelocytes, myelocytes andmetamyelocytes) > 1% indicates that a LEFT SHIFT is Present. Performed By: #### L 500.2500, L100.0100 ####[facility] [address] [place], [address] Lymphocytes/100 WBC (Bld) 18.3 % Low 19-41 [facility] Comment on above: Performed By: #### L 500.2500, L100.0100 ####[facility] [address] [place], [address] MCH (RBC) [Entitic mass] 31.7 pg Normal 27.0-32.0 [facility] Comment on above: Performed By: #### L 500.2500, L100.0100 ####[facility] [address] [place], [address] MCHC (RBC) [Mass/Vol] 32.1 g/dL Normal 32-36 [facility] Comment on above: Performed By: #### L 500.2500, L100.0100 ####[facility] [address] [place], [address] MCV (RBC) [Entitic vol] 98.8 fL Normal 81-99 [facility] Comment on above: Performed By: #### L 500.2500, L100.0100 ####[facility] [address] [place], [address] Monocytes/100 WBC (Bld) 9.6 % Normal 0-10 [facility] Comment on above: Performed By: #### L 500.2500, L100.0100 ####[facility] [address] [place], [address] Neutrophils/100 WBC (Bld) 69.0 % Normal 47-70 [facility] Comment on above: Performed By: #### L 500.2500, L100.0100 ####[facility] [address] [place], [address] Nucleated RBC (Bld) [#/Vol] 0 10*3/uL Normal 0-5 [facility] Comment on above: Performed By: #### L 500.2500, L100.0100 ####[facility] [address] [place], [address] Platelet mean volume (Bld) [Entitic vol] 8.9 fL Normal 6.2-12.0 [facility] Comment on above: Performed By: #### L 500.2500, L100.0100 ####[facility] [address] [place], [address] Platelets (Bld) [#/Vol] 280 10*3/uL Normal 150-450 [facility] Comment on above: Performed By: #### L 500.2500, L100.0100 ####[facility] [address] [place], [address] RBC (Bld) [#/Vol] 3.47 10*6/uL Low 4.2-5.4 [facility] Comment on above: Performed By: #### L 500.2500, L100.0100 ####[facility] [address] [place], [address] RDW SD 52.0 fl High 35.1-43.9 [facility] Comment on above: Performed By: #### L 500.2500, L100.0100 ####[facility] [address] [place], [address] WBC (Bld) [#/Vol] 9.2 10*3/uL Normal 4.4-11.[address] [facility] Comment on above: Performed By: #### L 500.2500, L100.0100 ####[facility] [address] [place], [address] Calcium [Mass/Vol]Ordered By : Michael Snowden on 05-21-2024 Serum or plasma calcium measurement (mass/volume) 8.9 mg/dL 8.5-10.[address] [facility] Carbon dioxide measurementOr dered By: Michael Snowden on 05-21-2024 CO2 [Moles/Vol] 22.0 mmol/L 21.0-32.0 [facility] Carbon dioxide measurement 22.0 mmol/L 21.0-32. 0 [facility] Chloride measurementOrdered By: Michael Snowden 05-21-2024 Chloride [Moles/Vol] 109 mmol/L High 98-107 [facility] Chloride measurement 109 mmol/L High 98-107 [facility] Creatinine [Mass/Vol]Ordered By: Michael Snowden on 05-21-2024 Serum or plasma creatinine measurement (mass/volume) 0.80 mg/dL 0.55-1.[address] [facility] Eosinophil percentageOrdered By: Michael Snowden on 05-21-2024 Eosinophils/100 WBC (Bld) 0.4 % 0-5 [facility] Eosinophil percentage 0.4 % 0-5 [facility] Erythrocyte distribution wid th (RBC) [Ratio]Ordered By: Michael Snowden on 05-21-2024 Erythrocyte distribution width ratio 14.3 % 11.6-14.6 [facility] Erythrocyte distribution width (RBC) [Entitic vol] 52.0 fL High 35.1-43.[address] [facility] Erythrocyte distribution width standard deviation 52.0 fl High 35.1-43.9 [facility] Erythrocyte distribution wid th ratioOrdered By: Michael Snowden on 05-21-2024 Erythrocyte distribution width (RBC) [Ratio] 14.3 % 11.6-14.6 [facility] Erythrocyte distribution wid th standard deviationOrdered By: Michael Snowden on 05-21-2024 Erythrocyte distribution width (RBC) [Ratio] 52.0 fl High 35.1-43.9 [facility] Estimated glomerular filtrat ion rate (GFR) AmericanOrdered By: Michael Snowden 05-21-2024 Estimated GFR (MDRD) Amer 89 mL/min >60 [facility] Comment on above: GFR Calc Estimated glomerular filtration rate (GFR) 89 mL/min >60 [facility] Estimation of creatinine bharat aranceOrdered By: Michael Snowden 05-21-2024 Estimated Creatinine Clearance Calc 50.86 ml/min [facility] Estimation of creatinine clearance 50.86 ml/min [facility] Glomerular filtration rate ( GFR) estimationOrdered By: Michael Snowden 05-21-2024 Estimated GFR (MDRD) Non-Af Amer 73 mL/min >60 [facility] Comment on above: Non- GFR Calc GFR/1.73 sq M.predicted among non-blacks MDRD (S/P/Bld) [Vol rate/Area] 73 mL/min/{1.73_m2} >60 [facility] Glomerular filtration rate (GFR) estimation 73 mL/min >60 [facility] Glucose measurementOrdered B y: Michael Snowden on 05-21-2024 Glucose [Mass/Vol] 85 mg/dL 74-[address] [facility] Glucose measurement 85 mg/dL 74-106 [facility] Hematocrit Auto (Bld) [Volum e fraction]Ordered By: Michael Snowden on 05-21-2024 Hematocrit (Bld) [Volume fraction] 34.3 % Low 37-47 [facility] Automated blood hematocrit (percentage) 34.3 % Low 37-47 [facility] Hemoglobin measurementOrdere d By: Michael Snowden on 05-21-2024 Hemoglobin (Bld) [Mass/Vol] 11.0 g/dL Low 12.0-15. 0 [facility] Hemoglobin measurement 11.0 g/dL Low 12.0-15.0 [facility] Immature granulocytes/100 WB C Auto (Bld)Ordered By: Michael Snowden on 05-21-2024 Immature granulocytes/100 WBC (Bld) 2.600 % High 0.0-0.9 [facility] Comment on above: IG% - Immature Granu locytes (promyelocytes, myelocytes and metamyelocytes) > 1% indicates that a LEFT SHIFT is Present. Automated immature granulocyte percentage 2.600 % High 0.0-0.9 [facility] Lymphocytes Auto (Unsp spec) [#/Vol]Ordered By: Michael Snowden on 05-21-2024 Lymphocytes (Bld) [#/Vol] 1.68 10*3/uL 0.83-4.5 1 [facility] Absolute lymphocyte count 1.68 X10^3/uL 0.83-4. 51 [facility] Lymphocytes/100 WBC Auto (Un sp spec)Ordered By: Michael Snowden on 05-21-2024 Lymphocytes/100 WBC (Bld) 18.3 % Low 19-41 [facility] Automated lymphocyte count as percentage of total leukocytes 18.3 % Low 19-41 [facility] MCV (RBC) [Entitic vol]Order ed By: Michael Snowden on 05-21-2024 MCV (mean corpuscular volume) determination 98.8 fL 81-99 [facility] MCV (mean corpuscular volume ) determinationOrdered By: Michael Snowden on 05-21-2024 MCV (RBC) [Entitic vol] 98.8 fL 81-99 [facility] Mean corpuscular hemoglobin (MCH) determinationOrdered By: Michael Snowden on 05-21-2024 MCH (RBC) [Entitic mass] 31.7 pg 27.0-32.0 [facility] Mean corpuscular hemoglobin (MCH) determination 31.7 pg 27.0-32.0 [facility] Mean corpuscular hemoglobin concentration (MCHC) determinationOrdered By: Michael Snowden on 05-21-2024 MCHC (RBC) [Mass/Vol] 32.1 g/dL -36 [facility] Mean corpuscular hemoglobin concentration (MCHC) determination 32.1 g/dL -36 [facility] Mean platelet volume determi nationOrdered By: Michael Snowden on 05-21-2024 Platelet mean volume (Bld) [Entitic vol] 8.9 fL 6.2-12.0 [facility] Mean platelet volume determination 8.9 fl 6.2-12.0 [facility] Monocyte percentageOrdered B y: Michael Snowden on 05-21-2024 Monocytes/100 WBC (Bld) 9.6 % 0-10 [facility] Monocyte percentage 9.6 % 0-10 [facility] Neutrophil percentageOrdered By: Michael Snowden on 05-21-2024 Neutrophils/100 WBC (Bld) 69.0 % 47-70 [facility] Neutrophil percentage 69.0 % 47-70 [facility] Nucleated red blood cell per centageOrdered By: Michael Snowden on 05-21-2024 Nucleated RBC/100 WBC (Bld) [Ratio] 0 % 0-5 [facility] Nucleated red blood cell percentage 0 % 0-5 [facility] Platelet countOrdered By: Augusto Snowden on 05-21-2024 Platelets (Bld) [#/Vol] 280 10*3/uL 150-450 [facility] Platelet count 280 K/mm3 150-450 [facility] Potassium measurementOrdered By: Michael Snowden on 05-21-2024 Potassium [Moles/Vol] 5.1 mmol/L 3.5-5.1 [facility] Potassium measurement 5.1 mmol/L 3.5-5.1 [facility] RBC Auto (Bld) [#/Vol]Ordere d By: Michael Snowden on 05-21-2024 RBC (Bld) [#/Vol] 3.47 10*6/uL Low 4.2-5.4 [facility] Automated blood erythrocyte count 3.47 M/mm3 Low 4.2-5.4 [facility] Serum anion gap measurementO rdered By: Michael Snowden on 05-21-2024 Anion gap [Moles/Vol] 9 mmol/L 5-15 [facility] Serum anion gap measurement 9 5-15 [facility] Serum or plasma calcium gianluca urement (mass/volume)Ordered By: Michael Snowden on 05-21-2024 Calcium [Mass/Vol] 8.9 mg/dL 8.5-10.[address] [facility] Serum or plasma creatinine m easurement (mass/volume)Ordered By: Michael Snowden on 05-21-2024 Creatinine [Mass/Vol] 0.80 mg/dL 0.55-1.02 [facility] Comment on above: The validity of the calculated GFR & GFRAA in patients over 70 years has not been determined. Clinical correlation is essential. Serum or plasma urea nitroge n measurement (mass/volume)Ordered By: Michael Snowden on 05-21-2024 Urea nitrogen [Mass/Vol] 32 mg/dL High 10-15 [facility] Sodium levelOrdered By: Michael Snowden on 05-21-2024 Sodium [Moles/Vol] 140 mmol/L 136-[address] [facility] Sodium level 140 mmol/L 136-145 [facility] Urea nitrogen [Mass/Vol]Orde red By: Michael Snowden on 05-21-2024 Serum or plasma urea nitrogen measurement (mass/volume) 32 mg/dL High 10-15 [facility] White blood cell (WBC) count Ordered By: Michael Snowden on 05-21-2024 WBC (Bld) [#/Vol] 9.2 10*3/uL 4.4-11.[address] [facility] White blood cell (WBC) count 9.2 K/mm3 4.4-11.0 [facility] COVID 19 AG RAPID (ELIE Saini)on 05-19-2024 SARS-CoV-2 (COVID-19) RNA DALILA+probe Ql (Unsp spec) Normal [facility] Comment on above: Performed By: #### M 100.505 ####[facility] [address] [place], [place], [address] COVID-19 virus antigen assay Ordered By: Michael Snowden on 05-19-2024 SARS-CoV-2 (COVID-19) Ag IA.rapid Ql (Resp) [facility] SARS-CoV-2 (COVID-19) Ag IA. rapid Ql (Resp)Ordered By: Michael Snowden on 05-19-2024 SARS-CoV-2 Antigen (Rapid) [facility] Lumbar Spine 2 or 3 Viewson 05-18-2024 Lumbar Spine 2 or 3 Views Normal [facility] Basic Metabolic Profile (BMP )on 05-14-2024 BUN/CRE 22.1 RATIO High 10-20 [facility] Comment on above: Performed By: #### L 100.0100, L500.2500 ####[facility] [address] [place], [address] CA,Total 9.2 mg/dL Normal 8.5-10.1 [facility] Comment on above: Performed By: #### L 100.0100, L500.2500 ####[facility] [address] [place], [address] Chloride [Moles/Vol] 108 mmol/L High 98-107 [facility] Comment on above: Performed By: #### L 100.0100, L500.2500 ####[facility] [address] [place], [address] CO2 [Moles/Vol] 23.0 mmol/L Normal 21.0-32.0 [facility] Comment on above: Performed By: #### L 100.0100, L500.2500 ####[facility] [address] [place], [address] Creatinine [Mass/Vol] 0.63 mg/dL Normal 0.55-1.02 [facility] Comment on above: Result Comment: The validity of the calculated GFR GFRAA in patients over70 years has not been determined. Clinical correlation isessential. Performed By: #### L 100.0100, L500.2500 ####[facility] [address] [place], [address] ECRCL 50.48 ml/min Normal [facility] Comment on above: Performed By: #### L 100.0100, L500.2500 ####[facility] [address] [place], [address] EST GFR - AA 117 mL/min Normal >60 [facility] Comment on above: Result Comment: Afri can [place]mani GFR Calc Performed By: #### L 100.0100, L500.2500 ####[facility] [address] [place], [address] GAP 6 Normal 5-15 [facility] Comment on above: Performed By: #### L 100.0100, L500.2500 ####[facility] [address] [place], [address] GFR/1.73 sq M.predicted among non-blacks MDRD (S/P/Bld) [Vol rate/Area] 96 mL/min/{1.73_m2} Normal >60 [facility] Comment on above: Result Comment: Non- GFR Calc Performed By: #### L 100.0100, L500.2500 ####[facility] [address] [place], [address] Glucose [Mass/Vol] 88 mg/dL Normal 74-[address] [facility] Comment on above: Performed By: #### L 100.0100, L500.2500 ####[facility] [address] [place], [address] Potassium [Moles/Vol] 4.1 mmol/L Normal 3.5-5.1 [facility] Comment on above: Performed By: #### L 100.0100, L500.2500 ####[facility] [address] [place], [address] Sodium [Moles/Vol] 137 mmol/L Normal 136-[address] [facility] Comment on above: Performed By: #### L 100.0100, L500.2500 ####[facility] [address] [place], [address] Urea nitrogen [Mass/Vol] 14 mg/dL Normal 7-18 [facility] Comment on above: Performed By: #### L 100.0100, L500.2500 ####[facility] [address] [place], [address] CBC W/Diff, Automatedon -04 03-2024 Absolute Lymph 1.29 X10 3/uL Normal 0.83-4.51 [facility] Comment on above: Performed By: #### L 100.0100, L500.2500 ####[facility] [address] [place], [address] Absolute Neut 2.8 X10 3/uL Normal 2.0-7.7 [facility] Comment on above: Performed By: #### L 100.0100, L500.2500 ####[facility] [address] [place], [address] Basophils/100 WBC (Bld) 0.8 % Normal 0-1 [facility] Comment on above: Performed By: #### L 100.0100, L500.2500 ####[facility] [address] [place], [address] Eosinophils/100 WBC (Bld) 3.2 % Normal 0-5 [facility] Comment on above: Performed By: #### L 100.0100, L500.2500 ####[facility] [address] [place], [address] Erythrocyte distribution width (RBC) [Ratio] 13.6 % Normal 11.6-14.6 [facility] Comment on above: Performed By: #### L 100.0100, L500.2500 ####[facility] [address], [address] Hematocrit (Bld) [Volume fraction] 33.9 % Low 37-47 [facility] Comment on above: Performed By: #### L 100.0100, L500.2500 ####[facility] [address] [place], [address] Hemoglobin (Bld) [Mass/Vol] 11.0 g/dL Low 12.0-15. 0 [facility] Comment on above: Performed By: #### L 100.0100, L500.2500 ####[facility] [address] [place], [address] IG% 0.400 Normal 0.0-0.9 [facility] Comment on above: Result Comment: IG% - Immature Granulocytes (promyelocytes, myelocytes andmetamyelocytes) > 1% indicates that a LEFT SHIFT is Present. Performed By: #### L 100.0100, L500.2500 ####[facility] [address] [place], [address] Lymphocytes/100 WBC (Bld) 26.2 % Normal 19-41 [facility] Comment on above: Performed By: #### L 100.0100, L500.2500 ####[facility] [address] [place], [address] MCH (RBC) [Entitic mass] 32.2 pg High 27.0-32.0 [facility] Comment on above: Performed By: #### L 100.0100, L500.2500 ####[facility] [address] [place], [address] MCHC (RBC) [Mass/Vol] 32.4 g/dL Normal 32-36 [facility] Comment on above: Performed By: #### L 100.0100, L500.2500 ####[facility] [address] [place], [address] MCV (RBC) [Entitic vol] 99.1 fL High 81-99 [facility] Comment on above: Performed By: #### L 100.0100, L500.2500 ####[facility] [address] [place], [address] Monocytes/100 WBC (Bld) 12.4 % High 0-10 [facility] Comment on above: Performed By: #### L 100.0100, L500.2500 ####[facility] [address] [place], [address] Neutrophils/100 WBC (Bld) 57.0 % Normal 47-70 [facility] Comment on above: Performed By: #### L 100.0100, L500.2500 ####[facility] [address] [place], [address] Nucleated RBC (Bld) [#/Vol] 0 10*3/uL Normal 0-5 [facility] Comment on above: Performed By: #### L 100.0100, L500.2500 ####[facility] [address] [place], [address] Platelet mean volume (Bld) [Entitic vol] 9.3 fL Normal 6.2-12.0 [facility] Comment on above: Performed By: #### L 100.0100, L500.2500 ####[facility] [address] [place], [address] Platelets (Bld) [#/Vol] 196 10*3/uL Normal 150-450 [facility] Comment on above: Performed By: #### L 100.0100, L500.2500 ####[facility] [address] [place], [address] RBC (Bld) [#/Vol] 3.42 10*6/uL Low 4.2-5.4 [facility] Comment on above: Performed By: #### L 100.0100, L500.2500 ####[facility] [address] [place], [address] RDW SD 49.5 fl High 35.1-43.9 [facility] Comment on above: Performed By: #### L 100.0100, L500.2500 ####[facility] [address] [place], [address] WBC (Bld) [#/Vol] 4.9 10*3/uL Normal 4.4-11.[address] [facility] Comment on above: Performed By: #### L 100.0100, L500.2500 ####[facility] [address] [place], [address] COVID 19 AG RAPID (ELIE Saini)on 05-12-2024 SARS-CoV-2 (COVID-19) RNA DALILA+probe Ql (Unsp spec) Normal [facility] Comment on above: Performed By: #### M 100.505 ####[facility] [address] [place], [address] COVID-19 virus antigen assay Ordered By: Michael Snowden on 05-12-2024 SARS-CoV-2 (COVID-19) Ag IA.rapid Ql (Resp) [facility] SARS-CoV-2 (COVID-19) Ag IA. rapid Ql (Resp)Ordered By: Michael Snowden on 05-12-2024 SARS-CoV-2 Antigen (Rapid) [facility] Basic Metabolic Profile (BMP )on 05-07-2024 BUN/CRE 23.5 RATIO High 10-20 [facility] Comment on above: Performed By: #### L 500.2500, L100.0100 ####[facility] [address] [place], [address] CA,Total 8.8 mg/dL Normal 8.5-10.1 [facility] Comment on above: Performed By: #### L 500.2500, L100.0100 ####[facility] [address] [place], [address] Chloride [Moles/Vol] 110 mmol/L High 98-107 [facility] Comment on above: Performed By: #### L 500.2500, L100.0100 ####[facility] [address] [place], [address] CO2 [Moles/Vol] 22.0 mmol/L Normal 21.0-32.0 [facility] Comment on above: Performed By: #### L 500.2500, L100.0100 ####[facility] [address] [place], [address] Creatinine [Mass/Vol] 0.64 mg/dL Normal 0.55-1.02 [facility] Comment on above: Result Comment: The validity of the calculated GFR GFRAA in patients over70 years has not been determined. Clinical correlation isessential. Performed By: #### L 500.2500, L100.0100 ####[facility] [address] [place], [address] ECRCL 50.29 ml/min Normal [facility] Comment on above: Performed By: #### L 500.2500, L100.0100 ####[facility] [address] [place], [address] EST GFR - AA 116 mL/min Normal >60 [facility] Comment on above: Result Comment: Afri can Omani GFR Calc Performed By: #### L 500.2500, L100.0100 ####[facility] [address] [place], [address] GAP 10 Normal 5-15 [facility] Comment on above: Performed By: #### L 500.2500, L100.0100 ####[facility] [address] [place], [address] GFR/1.73 sq M.predicted among non-blacks MDRD (S/P/Bld) [Vol rate/Area] 96 mL/min/{1.73_m2} Normal >60 [facility] Comment on above: Result Comment: Non- GFR Calc Performed By: #### L 500.2500, L100.0100 ####[facility] [address] [place], [address] Glucose [Mass/Vol] 94 mg/dL Normal 74-[address] [facility] Comment on above: Performed By: #### L 500.2500, L100.0100 ####[facility] [address] [place], [address] Potassium [Moles/Vol] 4.1 mmol/L Normal 3.5-5.1 [facility] Comment on above: Performed By: #### L 500.2500, L100.0100 ####[facility] [address] [place], [address] Sodium [Moles/Vol] 142 mmol/L Normal 136-[address] [facility] Comment on above: Performed By: #### L 500.2500, L100.0100 ####[facility] [address] [place], [address] Urea nitrogen [Mass/Vol] 15 mg/dL Normal 7-18 [facility] Comment on above: Performed By: #### L 500.2500, L100.0100 ####[facility] [address] [place], [address] CBC W/Diff, Automatedon 02-0 7-2024 Absolute Lymph 1.20 X10 3/uL Normal 0.83-4.51 [facility] Comment on above: Performed By: #### L 500.2500, L100.0100 ####[facility] [address] [place], [address] Absolute Neut 2.9 X10 3/uL Normal 2.0-7.7 [facility] Comment on above: Performed By: #### L 500.2500, L100.0100 ####[facility] [address] [place], [address] Basophils/100 WBC (Bld) 0.6 % Normal 0-1 [facility] Comment on above: Performed By: #### L 500.2500, L100.0100 ####[facility] [address] [place], [address] Eosinophils/100 WBC (Bld) 3.0 % Normal 0-5 [facility] Comment on above: Performed By: #### L 500.2500, L100.0100 ####[facility] [address] [place], [address] Erythrocyte distribution width (RBC) [Ratio] 13.7 % Normal 11.6-14.6 [facility] Comment on above: Performed By: #### L 500.2500, L100.0100 ####[facility] [address] [place], [address] Hematocrit (Bld) [Volume fraction] 35.3 % Low 37-47 [facility] Comment on above: Performed By: #### L 500.2500, L100.0100 ####[facility] [address] [place], [address] Hemoglobin (Bld) [Mass/Vol] 11.3 g/dL Low 12.0-15. 0 [facility] Comment on above: Performed By: #### L 500.2500, L100.0100 ####[facility] [address] [place], [address] IG% 0.200 Normal 0.0-0.9 [facility] Comment on above: Result Comment: IG% - Immature Granulocytes (promyelocytes, myelocytes andmetamyelocytes) > 1% indicates that a LEFT SHIFT is Present. Performed By: #### L 500.2500, L100.0100 ####[facility] [address] [place], [address] Lymphocytes/100 WBC (Bld) 25.4 % Normal 19-41 [facility] Comment on above: Performed By: #### L 500.2500, L100.0100 ####[facility] [address] [place], [address] MCH (RBC) [Entitic mass] 31.7 pg Normal 27.0-32.0 [facility] Comment on above: Performed By: #### L 500.2500, L100.0100 ####[facility] [address] [place], [address] MCHC (RBC) [Mass/Vol] 32.0 g/dL Normal 32-36 [facility] Comment on above: Performed By: #### L 500.2500, L100.0100 ####[facility] [address] [place], [address] MCV (RBC) [Entitic vol] 98.9 fL Normal 81-99 [facility] Comment on above: Performed By: #### L 500.2500, L100.0100 ####[facility] [address] [place], [address] Monocytes/100 WBC (Bld) 10.2 % High 0-10 [facility] Comment on above: Performed By: #### L 500.2500, L100.0100 ####[facility] [address] [place], [address] Neutrophils/100 WBC (Bld) 60.6 % Normal 47-70 [facility] Comment on above: Performed By: #### L 500.2500, L100.0100 ####[facility] [address] [place], [address] Nucleated RBC (Bld) [#/Vol] 0 10*3/uL Normal 0-5 [facility] Comment on above: Performed By: #### L 500.2500, L100.0100 ####[facility] [address] [place], [address] Platelet mean volume (Bld) [Entitic vol] 8.9 fL Normal 6.2-12.0 [facility] Comment on above: Performed By: #### L 500.2500, L100.0100 ####[facility] [address] [place], [address] Platelets (Bld) [#/Vol] 208 10*3/uL Normal 150-450 [facility] Comment on above: Performed By: #### L 500.2500, L100.0100 ####[facility] [address] [place], [address] RBC (Bld) [#/Vol] 3.57 10*6/uL Low 4.2-5.4 [facility] Comment on above: Performed By: #### L 500.2500, L100.0100 ####[facility] [address] [place], [address] RDW SD 50.4 fl High 35.1-43.9 [facility] Comment on above: Performed By: #### L 500.2500, L100.0100 ####[facility] [address] [place], [address] WBC (Bld) [#/Vol] 4.7 10*3/uL Normal 4.4-11.[address] [facility] Comment on above: Performed By: #### L 500.2500, L100.0100 ####[facility] [address] [place], [address] Basic Metabolic Profile (BMP )on 04-30-2024 BUN/CRE 28.8 RATIO High 10-20 [facility] Comment on above: Performed By: #### L 100.0100, L500.2500 ####[facility] [address] [place], [address] CA,Total 8.9 mg/dL Normal 8.5-10.1 [facility] Comment on above: Performed By: #### L 100.0100, L500.2500 ####[facility] [address] [place], [address] Chloride [Moles/Vol] 112 mmol/L High 98-107 [facility] Comment on above: Performed By: #### L 100.0100, L500.2500 ####[facility] [address] [place], [address] CO2 [Moles/Vol] 22.0 mmol/L Normal 21.0-32.0 [facility] Comment on above: Performed By: #### L 100.0100, L500.2500 ####[facility] [address] [place], [address] Creatinine [Mass/Vol] 0.73 mg/dL Normal 0.55-1.02 [facility] Comment on above: Result Comment: The validity of the calculated GFR GFRAA in patients over70 years has not been determined. Clinical correlation isessential. Performed By: #### L 100.0100, L500.2500 ####[facility] [address] [place], [address] ECRCL 50.34 ml/min Normal [facility] Comment on above: Performed By: #### L 100.0100, L500.2500 ####[facility] [address] [place], [address] EST GFR - AA 99 mL/min Normal >60 [facility] Comment on above: Result Comment: Afri can [place]mani GFR Calc Performed By: #### L 100.0100, L500.2500 ####[facility] [address] [place], [address] GAP 5 Normal 5-15 [facility] Comment on above: Performed By: #### L 100.0100, L500.2500 ####[facility] [address] [place], [address] GFR/1.73 sq M.predicted among non-blacks MDRD (S/P/Bld) [Vol rate/Area] 82 mL/min/{1.73_m2} Normal >60 [facility] Comment on above: Result Comment: Non- GFR Calc Performed By: #### L 100.0100, L500.2500 ####[facility] [address] [place], [address] Glucose [Mass/Vol] 96 mg/dL Normal 74-[address] [facility] Comment on above: Performed By: #### L 100.0100, L500.2500 ####[facility] [address] [place], [address] Potassium [Moles/Vol] 4.3 mmol/L Normal 3.5-5.1 [facility] Comment on above: Performed By: #### L 100.0100, L500.2500 ####[facility] [address] [place], [address] Sodium [Moles/Vol] 140 mmol/L Normal 136-[address] [facility] Comment on above: Performed By: #### L 100.0100, L500.2500 ####[facility] [address], [address] Urea nitrogen [Mass/Vol] 21 mg/dL High 7-18 [facility] Comment on above: Performed By: #### L 100.0100, L500.2500 ####[facility] [address] [place], [address] CBC W/Diff, Automatedon - Absolute Lymph 1.28 X10 3/uL Normal 0.83-4.51 [facility] Comment on above: Performed By: #### L 100.0100, L500.2500 ####[facility] [address] [place], [address] Absolute Neut 3.9 X10 3/uL Normal 2.0-7.7 [facility] Comment on above: Performed By: #### L 100.0100, L500.2500 ####[facility] [address] [place], [address] Basophils/100 WBC (Bld) 1.0 % Normal 0-1 [facility] Comment on above: Performed By: #### L 100.0100, L500.2500 ####[facility] [address] [place], [address] Eosinophils/100 WBC (Bld) 2.2 % Normal 0-5 [facility] Comment on above: Performed By: #### L 100.0100, L500.2500 ####[facility] [address] [place], [address] Erythrocyte distribution width (RBC) [Ratio] 13.9 % Normal 11.6-14.6 [facility] Comment on above: Performed By: #### L 100.0100, L500.2500 ####[facility] [address] [place], [address] Hematocrit (Bld) [Volume fraction] 36.1 % Low 37-47 [facility] Comment on above: Performed By: #### L 100.0100, L500.2500 ####[facility] [address] [place], [address] Hemoglobin (Bld) [Mass/Vol] 11.9 g/dL Low 12.0-15. 0 [facility] Comment on above: Performed By: #### L 100.0100, L500.2500 ####[facility] [address] [place], [address] IG% 0.500 Normal 0.0-0.9 [facility] Comment on above: Result Comment: IG% - Immature Granulocytes (promyelocytes, myelocytes andmetamyelocytes) > 1% indicates that a LEFT SHIFT is Present. Performed By: #### L 100.0100, L500.2500 ####[facility] [address] [place], [address] Lymphocytes/100 WBC (Bld) 21.3 % Normal 19-41 [facility] Comment on above: Performed By: #### L 100.0100, L500.2500 ####[facility] [address] [place], [address] MCH (RBC) [Entitic mass] 32.4 pg High 27.0-32.0 [facility] Comment on above: Performed By: #### L 100.0100, L500.2500 ####[facility] [address] [place], [address] MCHC (RBC) [Mass/Vol] 33.0 g/dL Normal 32-36 [facility] Comment on above: Performed By: #### L 100.0100, L500.2500 ####[facility] [address] [place], [address] MCV (RBC) [Entitic vol] 98.4 fL Normal 81-99 [facility] Comment on above: Performed By: #### L 100.0100, L500.2500 ####[facility] [address] [place], [address] Monocytes/100 WBC (Bld) 10.3 % High 0-10 [facility] Comment on above: Performed By: #### L 100.0100, L500.2500 ####[facility] [address] [place], [address] Neutrophils/100 WBC (Bld) 64.7 % Normal 47-70 [facility] Comment on above: Performed By: #### L 100.0100, L500.2500 ####[facility] [address] [place], [address] Nucleated RBC (Bld) [#/Vol] 0 10*3/uL Normal 0-5 [facility] Comment on above: Performed By: #### L 100.0100, L500.2500 ####[facility] [address] [place], [address] Platelet mean volume (Bld) [Entitic vol] 8.8 fL Normal 6.2-12.0 [facility] Comment on above: Performed By: #### L 100.0100, L500.2500 ####[facility] [address] [place], [address] Platelets (Bld) [#/Vol] 265 10*3/uL Normal 150-450 [facility] Comment on above: Performed By: #### L 100.0100, L500.2500 ####[facility] [address] [place], [address] RBC (Bld) [#/Vol] 3.67 10*6/uL Low 4.2-5.4 [facility] Comment on above: Performed By: #### L 100.0100, L500.2500 ####[facility] [address] [place], [address] RDW SD 50.2 fl High 35.1-43.9 [facility] Comment on above: Performed By: #### L 100.0100, L500.2500 ####[facility] [address] [place], [address] WBC (Bld) [#/Vol] 6.0 10*3/uL Normal 4.4-11.[address] [facility] Comment on above: Performed By: #### L 100.0100, L500.2500 ####[facility] [address] [place], [address] Basic Metabolic Profile (BMP )on 04-23-2024 BUN/CRE 33.6 RATIO High 10-20 [facility] Comment on above: Performed By: #### L 500.2500, L100.0100 ####[facility] [address] [place], [address] CA,Total 8.8 mg/dL Normal 8.5-10.1 [facility] Comment on above: Performed By: #### L 500.2500, L100.0100 ####[facility] [address] [place], [address] Chloride [Moles/Vol] 108 mmol/L High 98-107 [facility] Comment on above: Performed By: #### L 500.2500, L100.0100 ####[facility] [address] [place], [address] CO2 [Moles/Vol] 22.0 mmol/L Normal 21.0-32.0 [facility] Comment on above: Performed By: #### L 500.2500, L100.0100 ####[facility] [address] [place], [address] Creatinine [Mass/Vol] 0.68 mg/dL Normal 0.55-1.02 [facility] Comment on above: Result Comment: The validity of the calculated GFR GFRAA in patients over70 years has not been determined. Clinical correlation isessential. Performed By: #### L 500.2500, L100.0100 ####[facility] [address] [place], [address] ECRCL 50.54 ml/min Normal [facility] Comment on above: Performed By: #### L 500.2500, L100.0100 ####[facility] [address] [place], [address] EST GFR - AA 107 mL/min Normal >60 [facility] Comment on above: Result Comment: Afri can [place]mani GFR Calc Performed By: #### L 500.2500, L100.0100 ####[facility] [address] [place], [address] GAP 6 Normal 5-15 [facility] Comment on above: Performed By: #### L 500.2500, L100.0100 ####[facility] [address] [place], [address] GFR/1.73 sq M.predicted among non-blacks MDRD (S/P/Bld) [Vol rate/Area] 88 mL/min/{1.73_m2} Normal >60 [facility] Comment on above: Result Comment: Non- GFR Calc Performed By: #### L 500.2500, L100.0100 ####[facility] [address] [place], [address] Glucose [Mass/Vol] 97 mg/dL Normal 74-[address] [facility] Comment on above: Performed By: #### L 500.2500, L100.0100 ####[facility] [address] [place], [address] Potassium [Moles/Vol] 4.6 mmol/L Normal 3.5-5.1 [facility] Comment on above: Performed By: #### L 500.2500, L100.0100 ####[facility] [address] [place], [address] Sodium [Moles/Vol] 136 mmol/L Normal 136-[address] [facility] Comment on above: Performed By: #### L 500.2500, L100.0100 ####[facility] [address] [place], [address] Urea nitrogen [Mass/Vol] 23 mg/dL High 7-18 [facility] Comment on above: Performed By: #### L 500.2500, L100.0100 ####[facility] [address] [place], [address] CBC W/Diff, Automatedon 04-01 Absolute Lymph 1.47 X10 3/uL Normal 0.83-4.51 [facility] Comment on above: Performed By: #### L 500.2500, L100.0100 ####[facility] [address] [place], [address] Absolute Neut 4.2 X10 3/uL Normal 2.0-7.7 [facility] Comment on above: Performed By: #### L 500.2500, L100.0100 ####[facility] [address] [place], [address] Basophils/100 WBC (Bld) 0.6 % Normal 0-1 [facility] Comment on above: Performed By: #### L 500.2500, L100.0100 ####[facility] [address], [address] Eosinophils/100 WBC (Bld) 2.1 % Normal 0-5 [facility] Comment on above: Performed By: #### L 500.2500, L100.0100 ####[facility] [address] [place], [address] Erythrocyte distribution width (RBC) [Ratio] 13.2 % Normal 11.6-14.6 [facility] Comment on above: Performed By: #### L 500.2500, L100.0100 ####[facility] [address] [place], [address] Hematocrit (Bld) [Volume fraction] 34.8 % Low 37-47 [facility] Comment on above: Performed By: #### L 500.2500, L100.0100 ####[facility] [address] [place], [address] Hemoglobin (Bld) [Mass/Vol] 11.5 g/dL Low 12.0-15. 0 [facility] Comment on above: Performed By: #### L 500.2500, L100.0100 ####[facility] [address] [place], [address] IG% 2.400 High 0.0-0.9 [facility] Comment on above: Result Comment: IG% - Immature Granulocytes (promyelocytes, myelocytes andmetamyelocytes) > 1% indicates that a LEFT SHIFT is Present. Performed By: #### L 500.2500, L100.0100 ####[facility] [address] [place], [address] Lymphocytes/100 WBC (Bld) 22.0 % Normal 19-41 [facility] Comment on above: Performed By: #### L 500.2500, L100.0100 ####[facility] [address] [place], [address] MCH (RBC) [Entitic mass] 32.5 pg High 27.0-32.0 [facility] Comment on above: Performed By: #### L 500.2500, L100.0100 ####[facility] [address] [place], [address] MCHC (RBC) [Mass/Vol] 33.0 g/dL Normal 32-36 [facility] Comment on above: Performed By: #### L 500.2500, L100.0100 ####[facility] [address] [place], [address] MCV (RBC) [Entitic vol] 98.3 fL Normal 81-99 [facility] Comment on above: Performed By: #### L 500.2500, L100.0100 ####[facility] [address] [place], [address] Monocytes/100 WBC (Bld) 10.3 % High 0-10 [facility] Comment on above: Performed By: #### L 500.2500, L100.0100 ####[facility] [address] [place], [address] Neutrophils/100 WBC (Bld) 62.6 % Normal 47-70 [facility] Comment on above: Performed By: #### L 500.2500, L100.0100 ####[facility] [address] [place], [address] Nucleated RBC (Bld) [#/Vol] 0 10*3/uL Normal 0-5 [facility] Comment on above: Performed By: #### L 500.2500, L100.0100 ####[facility] [address] [place], [address] Platelet mean volume (Bld) [Entitic vol] 9.0 fL Normal 6.2-12.0 [facility] Comment on above: Performed By: #### L 500.2500, L100.0100 ####[facility] [address] [place], [address] Platelets (Bld) [#/Vol] 263 10*3/uL Normal 150-450 [facility] Comment on above: Performed By: #### L 500.2500, L100.0100 ####[facility] [address] [place], [address] RBC (Bld) [#/Vol] 3.54 10*6/uL Low 4.2-5.4 [facility] Comment on above: Performed By: #### L 500.2500, L100.0100 ####[facility] [address] [place], [address] RDW SD 47.7 fl High 35.1-43.9 [facility] Comment on above: Performed By: #### L 500.2500, L100.0100 ####[facility] [address] [place], [address] WBC (Bld) [#/Vol] 6.7 10*3/uL Normal 4.4-11.[address] [facility] Comment on above: Performed By: #### L 500.2500, L100.0100 ####[facility] [address] [place], [address] Basic Metabolic Profile (BMP )on 04-19-2024 BUN Normal 7-18 [facility] Comment on above: Result Comment: Canc elled via OM: Order cancelled - Patient discharged Performed By: #### L 100.0500, L500.2500 ####[facility] [address] [place], [address] BUN/CRE Normal 10-20 [facility] Comment on above: Result Comment: Canc elled via OM: Order cancelled - Patient discharged Performed By: #### L 100.0500, L500.2500 ####[facility] [address] [place], [address] CA,Total Normal 8.5-10.1 [facility] Comment on above: Result Comment: Canc elled via OM: Order cancelled - Patient discharged Performed By: #### L 100.0500, L500.2500 ####[facility] [address] [place], [address] CL Normal 98-107 [facility] Comment on above: Result Comment: Canc elled via OM: Order cancelled - Patient discharged Performed By: #### L 100.0500, L500.2500 ####[facility] [address] [place], [address] CO2 Normal 21.0-32.0 [facility] Comment on above: Result Comment: Canc elled via OM: Order cancelled - Patient discharged Performed By: #### L 100.0500, L500.2500 ####[facility] [address] [place], [address] CREAT,SERUM Normal 0.55-1.02 [facility] Comment on above: Result Comment: Canc elled via OM: Order cancelled - Patient discharged Performed By: #### L 100.0500, L500.2500 ####[facility] [address] [place], [address] EST GFR Normal >60 [facility] Comment on above: Result Comment: Canc elled via OM: Order cancelled - Patient discharged Performed By: #### L 100.0500, L500.2500 ####[facility] [address] [place], [address] EST GFR - AA Normal >60 [facility] Comment on above: Result Comment: Canc elled via OM: Order cancelled - Patient discharged Performed By: #### L 100.0500, L500.2500 ####[facility] [address] [place], [address] GAP Normal 5-15 [facility] Comment on above: Result Comment: Canc elled via OM: Order cancelled - Patient discharged Performed By: #### L 100.0500, L500.2500 ####[facility] [address] [place], [address] GLU Normal 74-106 [facility] Comment on above: Result Comment: Canc elled via OM: Order cancelled - Patient discharged Performed By: #### L 100.0500, L500.2500 ####[facility] [address] [place], [address] Potassium Normal 3.5-5.1 [facility] Comment on above: Result Comment: Canc elled via OM: Order cancelled - Patient discharged Performed By: #### L 100.0500, L500.2500 ####[facility] [address] [place], [address] Basic Metabolic Profile (BMP) Normal 136-145 [facility] Comment on above: Result Comment: Canc elled via OM: Order cancelled - Patient discharged Performed By: #### L 100.0500, L500.2500 ####[facility] [address] [place], [address] CBC-Complete Blood Cnt No Di ffon 04-19-2024 HCT Normal 37-47 [facility] Comment on above: Result Comment: Canc elled via OM: Order cancelled - Patient discharged Performed By: #### L 100.0500, L500.2500 ####[facility] [address] [place], [address] HGB Normal 12.0-15.0 [facility] Comment on above: Result Comment: Canc elled via OM: Order cancelled - Patient discharged Performed By: #### L 100.0500, L500.2500 ####[facility] [address] [place], [address] MCH Normal 27.0-32.0 [facility] Comment on above: Result Comment: Canc elled via OM: Order cancelled - Patient discharged Performed By: #### L 100.0500, L500.2500 ####[facility] [address] [place], [address] MCHC Normal 32-36 [facility] Comment on above: Result Comment: Canc elled via OM: Order cancelled - Patient discharged Performed By: #### L 100.0500, L500.2500 ####[facility] [address] [place], [address] MCV Normal 81-99 [facility] Comment on above: Result Comment: Canc elled via OM: Order cancelled - Patient discharged Performed By: #### L 100.0500, L500.2500 ####[facility] [address] [place], [address] PLT Normal 150-450 [facility] Comment on above: Result Comment: Canc elled via OM: Order cancelled - Patient discharged Performed By: #### L 100.0500, L500.2500 ####[facility] [address] [place], [address] RBC Normal 4.2-5.4 [facility] Comment on above: Result Comment: Canc elled via OM: Order cancelled - Patient discharged Performed By: #### L 100.0500, L500.2500 ####[facility] [address], [address] RDW CV Normal 11.6-14.6 [facility] Comment on above: Result Comment: Canc elled via OM: Order cancelled - Patient discharged Performed By: #### L 100.0500, L500.2500 ####[facility] [address] [place], [address] RDW SD Normal 35.1-43.9 [facility] Comment on above: Result Comment: Canc elled via OM: Order cancelled - Patient discharged Performed By: #### L 100.0500, L500.2500 ####[facility] [address] [place], [address] WBC Normal 4.4-11.0 [facility] Comment on above: Result Comment: Canc elled via OM: Order cancelled - Patient discharged Performed By: #### L 100.0500, L500.2500 ####[facility] [address] [place], [address] Basic Metabolic Profile (BMP )on 04-18-2024 BUN Normal 7-18 [facility] Comment on above: Result Comment: Canc elled via OM: Order cancelled - Patient discharged Performed By: #### L 100.0500, L500.2500 ####[facility] [address] [place], [address] BUN/CRE Normal 10-20 [facility] Comment on above: Result Comment: Canc elled via OM: Order cancelled - Patient discharged Performed By: #### L 100.0500, L500.2500 ####[facility] [address] [place], [address] CA,Total Normal 8.5-10.1 [facility] Comment on above: Result Comment: Canc elled via OM: Order cancelled - Patient discharged Performed By: #### L 100.0500, L500.2500 ####[facility] [address] [place], [address] CL Normal 98-107 [facility] Comment on above: Result Comment: Canc elled via OM: Order cancelled - Patient discharged Performed By: #### L 100.0500, L500.2500 ####[facility] [address] [place], [address] CO2 Normal 21.0-32.0 [facility] Comment on above: Result Comment: Canc elled via OM: Order cancelled - Patient discharged Performed By: #### L 100.0500, L500.2500 ####[facility] [address] [place], [address] CREAT,SERUM Normal 0.55-1.02 [facility] Comment on above: Result Comment: Canc elled via OM: Order cancelled - Patient discharged Performed By: #### L 100.0500, L500.2500 ####[facility] [address] [place], [address] EST GFR Normal >60 [facility] Comment on above: Result Comment: Canc elled via OM: Order cancelled - Patient discharged Performed By: #### L 100.0500, L500.2500 ####[facility] [address] [place], [address] EST GFR - AA Normal >60 [facility] Comment on above: Result Comment: Canc elled via OM: Order cancelled - Patient discharged Performed By: #### L 100.0500, L500.2500 ####[facility] [address] [place], [address] GAP Normal 5-15 [facility] Comment on above: Result Comment: Canc elled via OM: Order cancelled - Patient discharged Performed By: #### L 100.0500, L500.2500 ####[facility] [address] [place], [address] GLU Normal 74-106 [facility] Comment on above: Result Comment: Canc elled via OM: Order cancelled - Patient discharged Performed By: #### L 100.0500, L500.2500 ####[facility] [address] [place], [address] Potassium Normal 3.5-5.1 [facility] Comment on above: Result Comment: Canc elled via OM: Order cancelled - Patient discharged Performed By: #### L 100.0500, L500.2500 ####[facility] [address] [place], [address] Basic Metabolic Profile (BMP) Normal 136-145 [facility] Comment on above: Result Comment: Canc elled via OM: Order cancelled - Patient discharged Performed By: #### L 100.0500, L500.2500 ####[facility] [address] [place], [address] CBC-Complete Blood Cnt No Di ffon 04-18-2024 HCT Normal 37-47 [facility] Comment on above: Result Comment: Canc elled via OM: Order cancelled - Patient discharged Performed By: #### L 100.0500, L500.2500 ####[facility] [address] [place], [address] HGB Normal 12.0-15.0 [facility] Comment on above: Result Comment: Canc elled via OM: Order cancelled - Patient discharged Performed By: #### L 100.0500, L500.2500 ####[facility] [address] [place], [address] MCH Normal 27.0-32.0 [facility] Comment on above: Result Comment: Canc elled via OM: Order cancelled - Patient discharged Performed By: #### L 100.0500, L500.2500 ####[facility] [address] [place], [address] MCHC Normal 32-36 [facility] Comment on above: Result Comment: Canc elled via OM: Order cancelled - Patient discharged Performed By: #### L 100.0500, L500.2500 ####[facility] [address] [place], [address] MCV Normal 81-99 [facility] Comment on above: Result Comment: Canc elled via OM: Order cancelled - Patient discharged Performed By: #### L 100.0500, L500.2500 ####[facility] [address] [place], [address] PLT Normal 150-450 [facility] Comment on above: Result Comment: Canc elled via OM: Order cancelled - Patient discharged Performed By: #### L 100.0500, L500.2500 ####[facility] [address] [place], [address] RBC Normal 4.2-5.4 [facility] Comment on above: Result Comment: Canc elled via OM: Order cancelled - Patient discharged Performed By: #### L 100.0500, L500.2500 ####[facility] [address] [place], [address] RDW CV Normal 11.6-14.6 [facility] Comment on above: Result Comment: Canc elled via OM: Order cancelled - Patient discharged Performed By: #### L 100.0500, L500.2500 ####[facility] [address] [place], [address] RDW SD Normal 35.1-43.9 [facility] Comment on above: Result Comment: Canc elled via OM: Order cancelled - Patient discharged Performed By: #### L 100.0500, L500.2500 ####[facility] [address], [address] WBC Normal 4.4-11.0 [facility] Comment on above: Result Comment: Canc elled via OM: Order cancelled - Patient discharged Performed By: #### L 100.0500, L500.2500 ####[facility] [address] [place], [address] Basic Metabolic Profile (BMP )on 04-17-2024 BUN Normal -18 [facility] Comment on above: Result Comment: Canc elled via OM: Order cancelled - Patient discharged Performed By: #### L 500.2500, L100.0500 ####[facility] [address] [place], [address] BUN/CRE Normal 10-20 [facility] Comment on above: Result Comment: Canc elled via OM: Order cancelled - Patient discharged Performed By: #### L 500.2500, L100.0500 ####[facility] [address], [address] CA,Total Normal 8.5-10.1 [facility] Comment on above: Result Comment: Canc elled via OM: Order cancelled - Patient discharged Performed By: #### L 500.2500, L100.0500 ####[facility] [address] [place], [address] CL Normal 98-107 [facility] Comment on above: Result Comment: Canc elled via OM: Order cancelled - Patient discharged Performed By: #### L 500.2500, L100.0500 ####[facility] [address] [place], [address] CO2 Normal 21.0-32.0 [facility] Comment on above: Result Comment: Canc elled via OM: Order cancelled - Patient discharged Performed By: #### L 500.2500, L100.0500 ####[facility] [address] [place], [address] CREAT,SERUM Normal 0.55-1.02 [facility] Comment on above: Result Comment: Canc elled via OM: Order cancelled - Patient discharged Performed By: #### L 500.2500, L100.0500 ####[facility] [address] [place], [address] EST GFR Normal >60 [facility] Comment on above: Result Comment: Canc elled via OM: Order cancelled - Patient discharged Performed By: #### L 500.2500, L100.0500 ####[facility] [address] [place], [address] EST GFR - AA Normal >60 [facility] Comment on above: Result Comment: Canc elled via OM: Order cancelled - Patient discharged Performed By: #### L 500.2500, L100.0500 ####[facility] [address] [place], [address] GAP Normal 5-15 [facility] Comment on above: Result Comment: Canc elled via OM: Order cancelled - Patient discharged Performed By: #### L 500.2500, L100.0500 ####[facility] [address] [place], [address] GLU Normal 74-106 [facility] Comment on above: Result Comment: Canc elled via OM: Order cancelled - Patient discharged Performed By: #### L 500.2500, L100.0500 ####[facility] [address] [place], [address] Potassium Normal 3.5-5.1 [facility] Comment on above: Result Comment: Canc elled via OM: Order cancelled - Patient discharged Performed By: #### L 500.2500, L100.0500 ####[facility] [address] [place], [address] Basic Metabolic Profile (BMP) Normal 136-145 [facility] Comment on above: Result Comment: Canc elled via OM: Order cancelled - Patient discharged Performed By: #### L 500.2500, L100.0500 ####[facility] [address] [place], [address] BUN/CRE 36.8 RATIO High 10-20 [facility] Comment on above: Performed By: #### L 100.0100, L500.2500 ####[facility] [address] [place], [address] CA,Total 8.9 mg/dL Normal 8.5-10.1 [facility] Comment on above: Performed By: #### L 100.0100, L500.2500 ####[facility] [address] [place], [address] Chloride [Moles/Vol] 106 mmol/L Normal 98-107 [facility] Comment on above: Performed By: #### L 100.0100, L500.2500 ####[facility] [address] [place], [address] CO2 [Moles/Vol] 23.0 mmol/L Normal 21.0-32.0 [facility] Comment on above: Performed By: #### L 100.0100, L500.2500 ####[facility] [address] [place], [address] Creatinine [Mass/Vol] 0.71 mg/dL Normal 0.55-1.02 [facility] Comment on above: Result Comment: The validity of the calculated GFR GFRAA in patients over70 years has not been determined. Clinical correlation isessential. Performed By: #### L 100.0100, L500.2500 ####[facility] [address] [place], [address] ECRCL 50.11 ml/min Normal [facility] Comment on above: Performed By: #### L 100.0100, L500.2500 ####[facility] [address] [place], [address] EST GFR - AA 103 mL/min Normal >60 [facility] Comment on above: Result Comment: Afri can Omani GFR Calc Performed By: #### L 100.0100, L500.2500 ####[facility] [address] [place], [address] GAP 6 Normal 5-15 [facility] Comment on above: Performed By: #### L 100.0100, L500.2500 ####[facility] [address] [place], [address] GFR/1.73 sq M.predicted among non-blacks MDRD (S/P/Bld) [Vol rate/Area] 85 mL/min/{1.73_m2} Normal >60 [facility] Comment on above: Result Comment: Non- GFR Calc Performed By: #### L 100.0100, L500.2500 ####[facility] [address] [place], [address] Glucose [Mass/Vol] 108 mg/dL High 74-[address] [facility] Comment on above: Result Comment: Fast ing Glucose result from 100 to 125 mg/dLsuggests IMPAIRED HOMEOSTASIS per A.D.A. criteria. Performed By: #### L 100.0100, L500.2500 ####[facility] [address] [place], [address] Potassium [Moles/Vol] 4.2 mmol/L Normal 3.5-5.1 [facility] Comment on above: Performed By: #### L 100.0100, L500.2500 ####[facility] [address] [place], [address] Sodium [Moles/Vol] 135 mmol/L Low 136-[address] [facility] Comment on above: Performed By: #### L 100.0100, L500.2500 ####[facility] [address] [place], [address] Urea nitrogen [Mass/Vol] 26 mg/dL High 7-18 [facility] Comment on above: Performed By: #### L 100.0100, L500.2500 ####[facility] [address] [place], [address] CBC W/Diff, Automatedon 03-31 Absolute Lymph 1.39 X10 3/uL Normal 0.83-4.51 [facility] Comment on above: Performed By: #### L 100.0100, L500.2500 ####[facility] [address] [place], [address] Absolute Neut 5.3 X10 3/uL Normal 2.0-7.7 [facility] Comment on above: Performed By: #### L 100.0100, L500.2500 ####[facility] [address] [place], [address] Basophils/100 WBC (Bld) 0.3 % Normal 0-1 [facility] Comment on above: Performed By: #### L 100.0100, L500.2500 ####[facility] [address] [place], [address] Eosinophils/100 WBC (Bld) 0.3 % Normal 0-5 [facility] Comment on above: Performed By: #### L 100.0100, L500.2500 ####[facility] [address] [place], [address] Erythrocyte distribution width (RBC) [Ratio] 13.0 % Normal 11.6-14.6 [facility] Comment on above: Performed By: #### L 100.0100, L500.2500 ####[facility] [address] [place], [address] Hematocrit (Bld) [Volume fraction] 35.2 % Low 37-47 [facility] Comment on above: Performed By: #### L 100.0100, L500.2500 ####[facility] [address] [place], [address] Hemoglobin (Bld) [Mass/Vol] 11.4 g/dL Low 12.0-15. 0 [facility] Comment on above: Performed By: #### L 100.0100, L500.2500 ####[facility] [address] [place], [address] IG% 0.300 Normal 0.0-0.9 [facility] Comment on above: Result Comment: IG% - Immature Granulocytes (promyelocytes, myelocytes andmetamyelocytes) > 1% indicates that a LEFT SHIFT is Present. Performed By: #### L 100.0100, L500.2500 ####[facility] [address] [place], [address] Lymphocytes/100 WBC (Bld) 18.8 % Low 19-41 [facility] Comment on above: Performed By: #### L 100.0100, L500.2500 ####[facility] [address] [place], [address] MCH (RBC) [Entitic mass] 31.7 pg Normal 27.0-32.0 [facility] Comment on above: Performed By: #### L 100.0100, L500.2500 ####[facility] [address] [place], [address] MCHC (RBC) [Mass/Vol] 32.4 g/dL Normal 32-36 [facility] Comment on above: Performed By: #### L 100.0100, L500.2500 ####[facility] [address] [place], [address] MCV (RBC) [Entitic vol] 97.8 fL Normal 81-99 [facility] Comment on above: Performed By: #### L 100.0100, L500.2500 ####[facility] [address] [place], [address] Monocytes/100 WBC (Bld) 8.3 % Normal 0-10 [facility] Comment on above: Performed By: #### L 100.0100, L500.2500 ####[facility] [address] [place], [address] Neutrophils/100 WBC (Bld) 72.0 % High 47-70 [facility] Comment on above: Performed By: #### L 100.0100, L500.2500 ####[facility] [address] [place], [address] Nucleated RBC (Bld) [#/Vol] 0 10*3/uL Normal 0-5 [facility] Comment on above: Performed By: #### L 100.0100, L500.2500 ####[facility] [address] [place], [address] Platelet mean volume (Bld) [Entitic vol] 9.0 fL Normal 6.2-12.0 [facility] Comment on above: Performed By: #### L 100.0100, L500.2500 ####[facility] [address] [place], [address] Platelets (Bld) [#/Vol] 261 10*3/uL Normal 150-450 [facility] Comment on above: Performed By: #### L 100.0100, L500.2500 ####[facility] [address] [place], [address] RBC (Bld) [#/Vol] 3.60 10*6/uL Low 4.2-5.4 [facility] Comment on above: Performed By: #### L 100.0100, L500.2500 ####[facility] [address] [place], [address] RDW SD 46.8 fl High 35.1-43.9 [facility] Comment on above: Performed By: #### L 100.0100, L500.2500 ####[facility] [address] [place], [address] WBC (Bld) [#/Vol] 7.4 10*3/uL Normal 4.4-11.[address] [facility] Comment on above: Performed By: #### L 100.0100, L500.2500 ####[facility] [address] [place], [address] CBC-Complete Blood Cnt No Di ffon 04-17-2024 HCT Normal 37-47 [facility] Comment on above: Result Comment: Canc elled via OM: Order cancelled - Patient discharged Performed By: #### L 500.2500, L100.0500 ####[facility] [address] [place], [address] HGB Normal 12.0-15.0 [facility] Comment on above: Result Comment: Canc elled via OM: Order cancelled - Patient discharged Performed By: #### L 500.2500, L100.0500 ####[facility] [address] [place], [address] MCH Normal 27.0-32.0 [facility] Comment on above: Result Comment: Canc elled via OM: Order cancelled - Patient discharged Performed By: #### L 500.2500, L100.0500 ####[facility] [address] [place], [address] MCHC Normal 32-36 [facility] Comment on above: Result Comment: Canc elled via OM: Order cancelled - Patient discharged Performed By: #### L 500.2500, L100.0500 ####[facility] [address] [place], [address] MCV Normal 81-99 [facility] Comment on above: Result Comment: Canc elled via OM: Order cancelled - Patient discharged Performed By: #### L 500.2500, L100.0500 ####[facility] [address] [place], [address] PLT Normal 150-450 [facility] Comment on above: Result Comment: Canc elled via OM: Order cancelled - Patient discharged Performed By: #### L 500.2500, L100.0500 ####[facility] [address] [place], [address] RBC Normal 4.2-5.4 [facility] Comment on above: Result Comment: Canc elled via OM: Order cancelled - Patient discharged Performed By: #### L 500.2500, L100.0500 ####[facility] [address] [place], [address] RDW CV Normal 11.6-14.6 [facility] Comment on above: Result Comment: Canc elled via OM: Order cancelled - Patient discharged Performed By: #### L 500.2500, L100.0500 ####[facility] [address] [place], [address] RDW SD Normal 35.1-43.9 [facility] Comment on above: Result Comment: Canc elled via OM: Order cancelled - Patient discharged Performed By: #### L 500.2500, L100.0500 ####[facility] [address] [place], [address] WBC Normal 4.4-11.0 [facility] Comment on above: Result Comment: Canc elled via OM: Order cancelled - Patient discharged Performed By: #### L 500.2500, L100.0500 ####[facility] [address] [place], [address] Basic Metabolic Profile (BMP )on 04-16-2024 BUN/CRE 31.0 RATIO High 10-20 [facility] Comment on above: Performed By: #### L 500.2500, L100.0500 ####[facility] [address] [place], [address] CA,Total 9.3 mg/dL Normal 8.5-10.1 [facility] Comment on above: Performed By: #### L 500.2500, L100.0500 ####[facility] [address] [place], [address] Chloride [Moles/Vol] 107 mmol/L Normal 98-107 [facility] Comment on above: Performed By: #### L 500.2500, L100.0500 ####[facility] [address] [place], [address] CO2 [Moles/Vol] 25.0 mmol/L Normal 21.0-32.0 [facility] Comment on above: Performed By: #### L 500.2500, L100.0500 ####[facility] [address] [place], [address] Creatinine [Mass/Vol] 0.68 mg/dL Normal 0.55-1.02 [facility] Comment on above: Result Comment: The validity of the calculated GFR GFRAA in patients over70 years has not been determined. Clinical correlation isessential. Performed By: #### L 500.2500, L100.0500 ####[facility] [address] [place], [address] ECRCL 50.81 ml/min Normal [facility] Comment on above: Performed By: #### L 500.2500, L100.0500 ####[facility] [address] [place], [address] EST GFR - AA 108 mL/min Normal >60 [facility] Comment on above: Result Comment: Afri can Omani GFR Calc Performed By: #### L 500.2500, L100.0500 ####[facility] [address] [place], [address] GAP 5 Normal 5-15 [facility] Comment on above: Performed By: #### L 500.2500, L100.0500 ####[facility] [address] [place], [address] GFR/1.73 sq M.predicted among non-blacks MDRD (S/P/Bld) [Vol rate/Area] 89 mL/min/{1.73_m2} Normal >60 [facility] Comment on above: Result Comment: Non- GFR Calc Performed By: #### L 500.2500, L100.0500 ####[facility] [address] [place], [address] Glucose [Mass/Vol] 113 mg/dL High 74-[address] [facility] Comment on above: Result Comment: Fast ing Glucose result from 100 to 125 mg/dLsuggests IMPAIRED HOMEOSTASIS per A.D.A. criteria. Performed By: #### L 500.2500, L100.0500 ####[facility] [address] [place], [address] Potassium [Moles/Vol] 4.5 mmol/L Normal 3.5-5.1 [facility] Comment on above: Performed By: #### L 500.2500, L100.0500 ####[facility] [address] [place], [address] Sodium [Moles/Vol] 137 mmol/L Normal 136-[address] [facility] Comment on above: Performed By: #### L 500.2500, L100.0500 ####[facility] [address] [place], [address] Urea nitrogen [Mass/Vol] 21 mg/dL High 7-18 [facility] Comment on above: Performed By: #### L 500.2500, L100.0500 ####[facility] [address] [place], [address] Blood urea nitrogen (BUN)/cr eatinine ratioOrdered By: Lesli Watkins on 04-16-2024 Urea nitrogen/Creatinine [Mass ratio] 31.0 mg/mg High 10-20 [facility] Blood urea nitrogen (BUN)/creatinine ratio 31.0 RATIO High 10-20 [facility] CBC-Complete Blood Cnt No Di ffon 04-16-2024 Erythrocyte distribution width (RBC) [Ratio] 13.0 % Normal 11.6-14.6 [facility] Comment on above: Performed By: #### L 500.2500, L100.0500 ####[facility] [address] [place], [address] Hematocrit (Bld) [Volume fraction] 36.8 % Low 37-47 [facility] Comment on above: Performed By: #### L 500.2500, L100.0500 ####[facility] [address] [place], [address] Hemoglobin (Bld) [Mass/Vol] 11.9 g/dL Low 12.0-15. 0 [facility] Comment on above: Performed By: #### L 500.2500, L100.0500 ####[facility] [address] [place], [address] MCH (RBC) [Entitic mass] 31.6 pg Normal 27.0-32.0 [facility] Comment on above: Performed By: #### L 500.2500, L100.0500 ####[facility] [address] [place], [address] MCHC (RBC) [Mass/Vol] 32.3 g/dL Normal 32-36 [facility] Comment on above: Performed By: #### L 500.2500, L100.0500 ####[facility] [address] [place], [address] MCV (RBC) [Entitic vol] 97.6 fL Normal 81-99 [facility] Comment on above: Performed By: #### L 500.2500, L100.0500 ####[facility] [address] [place], [address] Platelet mean volume (Bld) [Entitic vol] 8.8 fL Normal 6.2-12.0 [facility] Comment on above: Performed By: #### L 500.2500, L100.0500 ####[facility] [address] [place], [address] Platelets (Bld) [#/Vol] 252 10*3/uL Normal 150-450 [facility] Comment on above: Performed By: #### L 500.2500, L100.0500 ####[facility] [address] [place], [address] RBC (Bld) [#/Vol] 3.77 10*6/uL Low 4.2-5.4 [facility] Comment on above: Performed By: #### L 500.2500, L100.0500 ####[facility] [address] [place], [address] RDW SD 46.3 fl High 35.1-43.9 [facility] Comment on above: Performed By: #### L 500.2500, L100.0500 ####[facility] [address] [place], [address] WBC (Bld) [#/Vol] 8.7 10*3/uL Normal 4.4-11.[address] [facility] Comment on above: Performed By: #### L 500.2500, L100.0500 ####[facility] [address] [place], [address] Calcium [Mass/Vol]Ordered By : Lesli Watkins on 04-16-2024 Serum or plasma calcium measurement (mass/volume) 9.3 mg/dL 8.5-10.[address] [facility] Carbon dioxide measurementOr dered By: Lesli Watkins on 04-16-2024 CO2 [Moles/Vol] 25.0 mmol/L 21.0-32.0 [facility] Carbon dioxide measurement 25.0 mmol/L 21.0-32. 0 [facility] Chloride measurementOrdered By: Lesli Watkins on 04-16-2024 Chloride [Moles/Vol] 107 mmol/L 98-107 [facility] Chloride measurement 107 mmol/L 98-107 [facility] Creatinine [Mass/Vol]Ordered By: Lesli Watkins on 04-16-2024 Serum or plasma creatinine measurement (mass/volume) 0.68 mg/dL 0.55-1.[address] [facility] Erythrocyte distribution wid th (RBC) [Ratio]Ordered By: Lesli Watkins on 04-16-2024 Erythrocyte distribution width ratio 13.0 % 11.6-14.6 [facility] Erythrocyte distribution width (RBC) [Entitic vol] 46.3 fL High 35.1-43.[address] [facility] Erythrocyte distribution width standard deviation 46.3 fl High 35.1-43.9 [facility] Erythrocyte distribution wid th ratioOrdered By: Lesli Watkins on 04-16-2024 Erythrocyte distribution width (RBC) [Ratio] 13.0 % 11.6-14.6 [facility] Erythrocyte distribution wid th standard deviationOrdered By: Lesli Watkins on 04-16-2024 Erythrocyte distribution width (RBC) [Ratio] 46.3 fl High 35.1-43.9 [facility] Estimated glomerular filtrat ion rate (GFR) AmericanOrdered By: Lesli Watkins on 04-16-2024 Estimated GFR (MDRD) Amer 108 mL/min >60 [facility] Comment on above: GFR Calc Estimated glomerular filtration rate (GFR) 108 mL/min >60 [facility] Estimation of creatinine bharat aranceOrdered By: Lesli Watkins on 04-16-2024 Estimated Creatinine Clearance Calc 50.81 ml/min [facility] Estimation of creatinine clearance 50.81 ml/min [facility] Glomerular filtration rate ( GFR) estimationOrdered By: Lesli Watkins on 04-16-2024 Estimated GFR (MDRD) Non-Af Amer 89 mL/min >60 [facility] Comment on above: Non- GFR Calc GFR/1.73 sq M.predicted among non-blacks MDRD (S/P/Bld) [Vol rate/Area] 89 mL/min/{1.73_m2} >60 [facility] Glomerular filtration rate (GFR) estimation 89 mL/min >60 [facility] Glucose measurementOrdered B y: Lesli Watkins on 04-16-2024 Glucose [Mass/Vol] 113 mg/dL High 74-[address] [facility] Comment on above: Fasting Glucose resu lt from 100 to 125 mg/dL suggests IMPAIRED HOMEOSTASIS per A.D.A. criteria. Glucose measurement 113 mg/dL High 74-106 [facility] Hematocrit Auto (Bld) [Volum e fraction]Ordered By: Lesli Watkins on 04-16-2024 Hematocrit (Bld) [Volume fraction] 36.8 % Low 37-47 [facility] Automated blood hematocrit (percentage) 36.8 % Low 37-47 [facility] Hemoglobin measurementOrdere d By: Lesli Watkins on 04-16-2024 Hemoglobin (Bld) [Mass/Vol] 11.9 g/dL Low 12.0-15. 0 [facility] Hemoglobin measurement 11.9 g/dL Low 12.0-15.0 [facility] MCV (RBC) [Entitic vol]Order ed By: Lesli Watkins on 04-16-2024 MCV (mean corpuscular volume) determination 97.6 fL 81-99 [facility] MCV (mean corpuscular volume ) determinationOrdered By: Lesli Watkins on 04-16-2024 MCV (RBC) [Entitic vol] 97.6 fL 81-99 [facility] Mean corpuscular hemoglobin (MCH) determinationOrdered By: Lesli Watkins on 04-16-2024 MCH (RBC) [Entitic mass] 31.6 pg 27.0-32.0 [facility] Mean corpuscular hemoglobin (MCH) determination 31.6 pg 27.0-32.0 [facility] Mean corpuscular hemoglobin concentration (MCHC) determinationOrdered By: Lesli Watkins on 04-16-2024 MCHC (RBC) [Mass/Vol] 32.3 g/dL 32-36 [facility] Mean corpuscular hemoglobin concentration (MCHC) determination 32.3 g/dL 32-36 [facility] Mean platelet volume determi nationOrdered By: Lesli Watkins on 04-16-2024 Platelet mean volume (Bld) [Entitic vol] 8.8 fL 6.2-12.0 [facility] Mean platelet volume determination 8.8 fl 6.2-12.0 [facility] Platelet countOrdered By: Gaby Watkins on 04-16-2024 Platelets (Bld) [#/Vol] 252 10*3/uL 150-450 [facility] Platelet count 252 K/mm3 150-450 [facility] Potassium measurementOrdered By: Lesli Watkins on 04-16-2024 Potassium [Moles/Vol] 4.5 mmol/L 3.5-5.1 [facility] Potassium measurement 4.5 mmol/L 3.5-5.1 [facility] RBC Auto (Bld) [#/Vol]Ordere d By: Lesli Watkins on 04-16-2024 RBC (Bld) [#/Vol] 3.77 10*6/uL Low 4.2-5.4 [facility] Automated blood erythrocyte count 3.77 M/mm3 Low 4.2-5.4 [facility] Serum anion gap measurementO rdered By: Lesli Watkins on 04-16-2024 Anion gap [Moles/Vol] 5 mmol/L 5-15 [facility] Serum anion gap measurement 5 5-15 [facility] Serum or plasma calcium gianluca urement (mass/volume)Ordered By: Lesli Watkins on 04-16-2024 Calcium [Mass/Vol] 9.3 mg/dL 8.5-10.[address] [facility] Serum or plasma creatinine m easurement (mass/volume)Ordered By: Lesli Watkins on 04-16-2024 Creatinine [Mass/Vol] 0.68 mg/dL 0.55-1.02 [facility] Comment on above: The validity of the calculated GFR & GFRAA in patients over 70 years has not been determined. Clinical correlation is essential. Serum or plasma urea nitroge n measurement (mass/volume)Ordered By: Lesli Watkins on 04-16-2024 Urea nitrogen [Mass/Vol] 21 mg/dL High 7-18 [facility] Sodium levelOrdered By: Zeus Watkins on 04-16-2024 Sodium [Moles/Vol] 137 mmol/L 136-[address] [facility] Sodium level 137 mmol/L 136-145 [facility] Urea nitrogen [Mass/Vol]Orde red By: Lesli Watkins on 04-16-2024 Serum or plasma urea nitrogen measurement (mass/volume) 21 mg/dL High 7-18 [facility] White blood cell (WBC) count Ordered By: Lesli Watkins on 04-16-2024 WBC (Bld) [#/Vol] 8.7 10*3/uL 4.4-11.[address] [facility] White blood cell (WBC) count 8.7 K/mm3 4.4-11.0 [facility] Basic Metabolic Profile (BMP )on 04-15-2024 BUN/CRE 27.9 RATIO High 10-20 [facility] Comment on above: Performed By: #### L 500.2500, L100.0500 ####[facility] [address] [place], [address] CA,Total 9.2 mg/dL Normal 8.5-10.1 [facility] Comment on above: Performed By: #### L 500.2500, L100.0500 ####[facility] [address] [place], [address] Chloride [Moles/Vol] 107 mmol/L Normal 98-107 [facility] Comment on above: Performed By: #### L 500.2500, L100.0500 ####[facility] [address] [place], [address] CO2 [Moles/Vol] 26.0 mmol/L Normal 21.0-32.0 [facility] Comment on above: Performed By: #### L 500.2500, L100.0500 ####[facility] [address] [place], [address] Creatinine [Mass/Vol] 0.68 mg/dL Normal 0.55-1.02 [facility] Comment on above: Result Comment: The validity of the calculated GFR GFRAA in patients over70 years has not been determined. Clinical correlation isessential. Performed By: #### L 500.2500, L100.0500 ####[facility] [address] [place], [address] ECRCL 50.81 ml/min Normal [facility] Comment on above: Performed By: #### L 500.2500, L100.0500 ####[facility] [address] [place], [address] EST GFR - AA 107 mL/min Normal >60 [facility] Comment on above: Result Comment: Afri can [place] GFR Calc Performed By: #### L 500.2500, L100.0500 ####[facility] [address] [place], [address] GAP 5 Normal 5-15 [facility] Comment on above: Performed By: #### L 500.2500, L100.0500 ####[facility] [address] [place], [address] GFR/1.73 sq M.predicted among non-blacks MDRD (S/P/Bld) [Vol rate/Area] 89 mL/min/{1.73_m2} Normal >60 [facility] Comment on above: Result Comment: Non- GFR Calc Performed By: #### L 500.2500, L100.0500 ####[facility] [address] [place], [address] Glucose [Mass/Vol] 119 mg/dL High 74-[address] [facility] Comment on above: Result Comment: Fast ing Glucose result from 100 to 125 mg/dLsuggests IMPAIRED HOMEOSTASIS per A.D.A. criteria. Performed By: #### L 500.2500, L100.0500 ####[facility] [address] [place], [address] Potassium [Moles/Vol] 4.4 mmol/L Normal 3.5-5.1 [facility] Comment on above: Performed By: #### L 500.2500, L100.0500 ####[facility] [address] [place], [address] Sodium [Moles/Vol] 138 mmol/L Normal 136-[address] [facility] Comment on above: Performed By: #### L 500.2500, L100.0500 ####[facility] [address] [place], [address] Urea nitrogen [Mass/Vol] 19 mg/dL High 7-18 [facility] Comment on above: Performed By: #### L 500.2500, L100.0500 ####[facility] [address] [place], [address] CBC-Complete Blood Cnt No Di ffon 04-15-2024 Erythrocyte distribution width (RBC) [Ratio] 13.0 % Normal 11.6-14.6 [facility] Comment on above: Performed By: #### L 500.2500, L100.0500 ####[facility] [address] [place], [address] Hematocrit (Bld) [Volume fraction] 37.2 % Normal 37-47 [facility] Comment on above: Performed By: #### L 500.2500, L100.0500 ####[facility] [address] [place], [address] Hemoglobin (Bld) [Mass/Vol] 12.2 g/dL Normal 12.0-15. 0 [facility] Comment on above: Performed By: #### L 500.2500, L100.0500 ####[facility] [address] [place], [address] MCH (RBC) [Entitic mass] 31.9 pg Normal 27.0-32.0 [facility] Comment on above: Performed By: #### L 500.2500, L100.0500 ####[facility] [address] [place], [address] MCHC (RBC) [Mass/Vol] 32.8 g/dL Normal 32-36 [facility] Comment on above: Performed By: #### L 500.2500, L100.0500 ####[facility] [address] [place], [address] MCV (RBC) [Entitic vol] 97.4 fL Normal 81-99 [facility] Comment on above: Performed By: #### L 500.2500, L100.0500 ####[facility] [address] [place], [address] Platelet mean volume (Bld) [Entitic vol] 8.9 fL Normal 6.2-12.0 [facility] Comment on above: Performed By: #### L 500.2500, L100.0500 ####[facility] [address] [place], [address] Platelets (Bld) [#/Vol] 281 10*3/uL Normal 150-450 [facility] Comment on above: Performed By: #### L 500.2500, L100.0500 ####[facility] [address] [place], [address] RBC (Bld) [#/Vol] 3.82 10*6/uL Low 4.2-5.4 [facility] Comment on above: Performed By: #### L 500.2500, L100.0500 ####[facility] [address] [place], [address] RDW SD 46.1 fl High 35.1-43.9 [facility] Comment on above: Performed By: #### L 500.2500, L100.0500 ####[facility] [address] [place], [address] WBC (Bld) [#/Vol] 9.4 10*3/uL Normal 4.4-11.[address] [facility] Comment on above: Performed By: #### L 500.2500, L100.0500 ####[facility] [address] [place], [address] 12 Lead EKGon 04-14-2024 12 Lead EKG Normal [facility] Basic Metabolic Profile (BMP )on 04-14-2024 BUN/CRE 25.0 RATIO High 10-20 [facility] Comment on above: Performed By: #### L 100.0500, L500.2500 ####[facility] [address] [place], [address] CA,Total 8.8 mg/dL Normal 8.5-10.1 [facility] Comment on above: Performed By: #### L 100.0500, L500.2500 ####[facility] [address] [place], [address] Chloride [Moles/Vol] 106 mmol/L Normal 98-107 [facility] Comment on above: Performed By: #### L 100.0500, L500.2500 ####[facility] [address] [place], [address] CO2 [Moles/Vol] 27.0 mmol/L Normal 21.0-32.0 [facility] Comment on above: Performed By: #### L 100.0500, L500.2500 ####[facility] [address] [place], [address] Creatinine [Mass/Vol] 0.80 mg/dL Normal 0.55-1.02 [facility] Comment on above: Result Comment: The validity of the calculated GFR GFRAA in patients over70 years has not been determined. Clinical correlation isessential. Performed By: #### L 100.0500, L500.2500 ####[facility] [address] [place], [address] ECRCL 50.81 ml/min Normal [facility] Comment on above: Performed By: #### L 100.0500, L500.2500 ####[facility] [address] [place], [address] EST GFR - AA 89 mL/min Normal >60 [facility] Comment on above: Result Comment: Afri can [place] GFR Calc Performed By: #### L 100.0500, L500.2500 ####[facility] [address] [place], [address] GAP 4 Low 5-15 [facility] Comment on above: Performed By: #### L 100.0500, L500.2500 ####[facility] [address] [place], [address] GFR/1.73 sq M.predicted among non-blacks MDRD (S/P/Bld) [Vol rate/Area] 74 mL/min/{1.73_m2} Normal >60 [facility] Comment on above: Result Comment: Non- GFR Calc Performed By: #### L 100.0500, L500.2500 ####[facility] [address] [place], [address] Glucose [Mass/Vol] 93 mg/dL Normal 74-[address] [facility] Comment on above: Performed By: #### L 100.0500, L500.2500 ####[facility] [address] [place], [address] Potassium [Moles/Vol] 4.3 mmol/L Normal 3.5-5.1 [facility] Comment on above: Performed By: #### L 100.0500, L500.2500 ####[facility] [address] [place], [address] Sodium [Moles/Vol] 138 mmol/L Normal 136-[address] [facility] Comment on above: Performed By: #### L 100.0500, L500.2500 ####[facility] [address] [place], [address] Urea nitrogen [Mass/Vol] 20 mg/dL High 7-18 [facility] Comment on above: Performed By: #### L 100.0500, L500.2500 ####[facility] [address] [place], [address] CBC-Complete Blood Cnt No Di ffon 04-14-2024 Erythrocyte distribution width (RBC) [Ratio] 13.1 % Normal 11.6-14.6 [facility] Comment on above: Performed By: #### L 100.0500, L500.2500 ####[facility] [address] [place], [address] Hematocrit (Bld) [Volume fraction] 36.1 % Low 37-47 [facility] Comment on above: Performed By: #### L 100.0500, L500.2500 ####[facility] [address] [place], [address] Hemoglobin (Bld) [Mass/Vol] 11.6 g/dL Low 12.0-15. 0 [facility] Comment on above: Performed By: #### L 100.0500, L500.2500 ####[facility] [address] [place], [address] MCH (RBC) [Entitic mass] 31.9 pg Normal 27.0-32.0 [facility] Comment on above: Performed By: #### L 100.0500, L500.2500 ####[facility] [address] [place], [address] MCHC (RBC) [Mass/Vol] 32.1 g/dL Normal 32-36 [facility] Comment on above: Performed By: #### L 100.0500, L500.2500 ####[facility] [address] [place], [address] MCV (RBC) [Entitic vol] 99.2 fL High 81-99 [facility] Comment on above: Performed By: #### L 100.0500, L500.2500 ####[facility] [address] [place], [address] Platelet mean volume (Bld) [Entitic vol] 9.0 fL Normal 6.2-12.0 [facility] Comment on above: Performed By: #### L 100.0500, L500.2500 ####[facility] [address] [place], [address] Platelets (Bld) [#/Vol] 269 10*3/uL Normal 150-450 [facility] Comment on above: Performed By: #### L 100.0500, L500.2500 ####[facility] [address] [place], [address] RBC (Bld) [#/Vol] 3.64 10*6/uL Low 4.2-5.4 [facility] Comment on above: Performed By: #### L 100.0500, L500.2500 ####[facility] [address] [place], [address] RDW SD 47.4 fl High 35.1-43.9 [facility] Comment on above: Performed By: #### L 100.0500, L500.2500 ####[facility] [address] [place], [address] WBC (Bld) [#/Vol] 7.1 10*3/uL Normal 4.4-11.[address] [facility] Comment on above: Performed By: #### L 100.0500, L500.2500 ####[facility] [address] [place], [address] Lumbar Spine 2 or 3 Viewson 04-14-2024 Lumbar Spine 2 or 3 Views Normal [facility] MR/POSTOP.ANEon 04-14-2024 MR/POSTOP.ANE Normal [facility] MR/AVQLWXUY2hb 04-14-2024 MR/POSTOPAN2 Normal [facility] Operative Reporton Operative Report Normal [facility] Basic Metabolic Profile (BMP )on 04-13-2024 BUN/CRE 25.7 RATIO High 10-20 [facility] Comment on above: Performed By: #### L 100.0500, L500.2500 ####[facility] [address] [place], [address] CA,Total 9.0 mg/dL Normal 8.5-10.1 [facility] Comment on above: Performed By: #### L 100.0500, L500.2500 ####[facility] [address] [place], [address] Chloride [Moles/Vol] 107 mmol/L Normal 98-107 [facility] Comment on above: Performed By: #### L 100.0500, L500.2500 ####[facility] [address] [place], [address] CO2 [Moles/Vol] 27.0 mmol/L Normal 21.0-32.0 [facility] Comment on above: Performed By: #### L 100.0500, L500.2500 ####[facility] [address] [place], [address] Creatinine [Mass/Vol] 0.70 mg/dL Normal 0.55-1.02 [facility] Comment on above: Result Comment: The validity of the calculated GFR GFRAA in patients over70 years has not been determined. Clinical correlation isessential. Performed By: #### L 100.0500, L500.2500 ####[facility] [address] [place], [address] ECRCL 50.81 ml/min Normal [facility] Comment on above: Performed By: #### L 100.0500, L500.2500 ####[facility] [address] [place], [address] EST GFR - AA 104 mL/min Normal >60 [facility] Comment on above: Result Comment: Afri can [place] GFR Calc Performed By: #### L 100.0500, L500.2500 ####[facility] [address] [place], [address] GAP 5 Normal 5-15 [facility] Comment on above: Performed By: #### L 100.0500, L500.2500 ####[facility] [address] [place], [address] GFR/1.73 sq M.predicted among non-blacks MDRD (S/P/Bld) [Vol rate/Area] 86 mL/min/{1.73_m2} Normal >60 [facility] Comment on above: Result Comment: Non- GFR Calc Performed By: #### L 100.0500, L500.2500 ####[facility] [address] [place], [address] Glucose [Mass/Vol] 94 mg/dL Normal 74-[address] [facility] Comment on above: Performed By: #### L 100.0500, L500.2500 ####[facility] [address] [place], [address] Potassium [Moles/Vol] 4.1 mmol/L Normal 3.5-5.1 [facility] Comment on above: Performed By: #### L 100.0500, L500.2500 ####[facility] [address] [place], [address] Sodium [Moles/Vol] 139 mmol/L Normal 136-[address] [facility] Comment on above: Performed By: #### L 100.0500, L500.2500 ####[facility] [address] [place], [address] Urea nitrogen [Mass/Vol] 18 mg/dL Normal 7-18 [facility] Comment on above: Performed By: #### L 100.0500, L500.2500 ####[facility] [address] [place], [address] CBC-Complete Blood Cnt No Di ffon 04-13-2024 Erythrocyte distribution width (RBC) [Ratio] 13.1 % Normal 11.6-14.6 [facility] Comment on above: Performed By: #### L 100.0500, L500.2500 ####[facility] [address] [place], [address] Hematocrit (Bld) [Volume fraction] 37.7 % Normal 37-47 [facility] Comment on above: Performed By: #### L 100.0500, L500.2500 ####[facility] [address] [place], [address] Hemoglobin (Bld) [Mass/Vol] 12.2 g/dL Normal 12.0-15. 0 [facility] Comment on above: Performed By: #### L 100.0500, L500.2500 ####[facility] [address] [place], [address] MCH (RBC) [Entitic mass] 32.0 pg Normal 27.0-32.0 [facility] Comment on above: Performed By: #### L 100.0500, L500.2500 ####[facility] [address] [place], [address] MCHC (RBC) [Mass/Vol] 32.4 g/dL Normal 32-36 [facility] Comment on above: Performed By: #### L 100.0500, L500.2500 ####[facility] [address] [place], [address] MCV (RBC) [Entitic vol] 99.0 fL Normal 81-99 [facility] Comment on above: Performed By: #### L 100.0500, L500.2500 ####[facility] [address] [place], [address] Platelet mean volume (Bld) [Entitic vol] 9.0 fL Normal 6.2-12.0 [facility] Comment on above: Performed By: #### L 100.0500, L500.2500 ####[facility] [address] [place], [address] Platelets (Bld) [#/Vol] 267 10*3/uL Normal 150-450 [facility] Comment on above: Performed By: #### L 100.0500, L500.2500 ####[facility] [address] [place], [address] RBC (Bld) [#/Vol] 3.81 10*6/uL Low 4.2-5.4 [facility] Comment on above: Performed By: #### L 100.0500, L500.2500 ####[facility] [address] [place], [address] RDW SD 47.2 fl High 35.1-43.9 [facility] Comment on above: Performed By: #### L 100.0500, L500.2500 ####[facility] [address] [place], [address] WBC (Bld) [#/Vol] 6.6 10*3/uL Normal 4.4-11.[address] [facility] Comment on above: Performed By: #### L 100.0500, L500.2500 ####[facility] [address] [place], [address] Spine Lumbar (Routine)on Spine Lumbar (Routine) Normal [facility] Absolute lymphocyte countOrd ered By: Lesli Watkins on 04-12-2024 Lymphocytes Auto (Unsp spec) [#/Vol] 1.50 10*3/uL 0.83-4.51 [facility] Absolute neutrophil countOrd ered By: Lesli Watkins on 04-12-2024 Neutrophils (Bld) [#/Vol] 4.5 10*3/uL 2.0-7.7 [facility] Absolute neutrophil count 4.5 X10^3/uL 2.0-7.7 [facility] Automated lymphocyte count a s percentage of total leukocytesOrdered By: Lesli Watkins on 04-12-2024 Lymphocytes/100 WBC Auto (Unsp spec) 21.6 % 19-41 [facility] Basic Metabolic Profile (BMP )on 04-12-2024 BUN/CRE 18.6 RATIO Normal 10-20 [facility] Comment on above: Performed By: #### L 100.0100, L300.3900, L501.9520, L500.2500, L501.5200 ####[facility] [address] [place], [address] CA,Total 9.0 mg/dL Normal 8.5-10.1 [facility] Comment on above: Performed By: #### L 100.0100, L300.3900, L501.9520, L500.2500, L501.5200 ####[facility] [address] [place], [address] Chloride [Moles/Vol] 107 mmol/L Normal 98-107 [facility] Comment on above: Performed By: #### L 100.0100, L300.3900, L501.9520, L500.2500, L501.5200 ####[facility] [address] [place], [address] CO2 [Moles/Vol] 26.0 mmol/L Normal 21.0-32.0 [facility] Comment on above: Performed By: #### L 100.0100, L300.3900, L501.9520, L500.2500, L501.5200 ####[facility] [address] [place], [address] Creatinine [Mass/Vol] 0.81 mg/dL Normal 0.55-1.02 [facility] Comment on above: Result Comment: The validity of the calculated GFR GFRAA in patients over70 years has not been determined. Clinical correlation isessential. Performed By: #### L 100.0100, L300.3900, L501.9520, L500.2500, L501.5200 ####[facility] [address] [place], [address] ECRCL 50.18 ml/min Normal [facility] Comment on above: Performed By: #### L 100.0100, L300.3900, L501.9520, L500.2500, L501.5200 ####[facility] [address] [place], [address] EST GFR - AA 88 mL/min Normal >60 [facility] Comment on above: Result Comment: Afri can [place] GFR Calc Performed By: #### L 100.0100, L300.3900, L501.9520, L500.2500, L501.5200 ####[facility] [address] [place], [address] GAP 6 Normal 5-15 [facility] Comment on above: Performed By: #### L 100.0100, L300.3900, L501.9520, L500.2500, L501.5200 ####[facility] [address] [place], [address] GFR/1.73 sq M.predicted among non-blacks MDRD (S/P/Bld) [Vol rate/Area] 73 mL/min/{1.73_m2} Normal >60 [facility] Comment on above: Result Comment: Non- GFR Calc Performed By: #### L 100.0100, L300.3900, L501.9520, L500.2500, L501.5200 ####[facility] [address] [place], [address] Glucose [Mass/Vol] 95 mg/dL Normal 74-[address] [facility] Comment on above: Performed By: #### L 100.0100, L300.3900, L501.9520, L500.2500, L501.5200 ####[facility] [address] [place], [address] Potassium [Moles/Vol] 4.4 mmol/L Normal 3.5-5.1 [facility] Comment on above: Performed By: #### L 100.0100, L300.3900, L501.9520, L500.2500, L501.5200 ####[facility] [address] [place], [address] Sodium [Moles/Vol] 138 mmol/L Normal 136-[address] [facility] Comment on above: Performed By: #### L 100.0100, L300.3900, L501.9520, L500.2500, L501.5200 ####[facility] [address] [place], [address] Urea nitrogen [Mass/Vol] 15 mg/dL Normal 7-18 [facility] Comment on above: Performed By: #### L 100.0100, L300.3900, L501.9520, L500.2500, L501.5200 ####[facility] [address] [place], [address] Basophil percentageOrdered B y: Lesli Watkins on 04-12-2024 Basophils/100 WBC (Bld) 0.6 % 0-1 [facility] Basophil percentage 0.6 % 0-1 [facility] CBC W/Diff, Automatedon 03-31 Absolute Lymph 1.50 X10 3/uL Normal 0.83-4.51 [facility] Comment on above: Performed By: #### L 100.0100, L300.3900, L501.9520, L500.2500, L501.5200 ####[facility] [address] [place], [address] Absolute Neut 4.5 X10 3/uL Normal 2.0-7.7 [facility] Comment on above: Performed By: #### L 100.0100, L300.3900, L501.9520, L500.2500, L501.5200 ####[facility] [address] [place], [address] Basophils/100 WBC (Bld) 0.6 % Normal 0-1 [facility] Comment on above: Performed By: #### L 100.0100, L300.3900, L501.9520, L500.2500, L501.5200 ####[facility] [address] [place], [address] Eosinophils/100 WBC (Bld) 1.3 % Normal 0-5 [facility] Comment on above: Performed By: #### L 100.0100, L300.3900, L501.9520, L500.2500, L501.5200 ####[facility] [address] [place], [address] Erythrocyte distribution width (RBC) [Ratio] 13.1 % Normal 11.6-14.6 [facility] Comment on above: Performed By: #### L 100.0100, L300.3900, L501.9520, L500.2500, L501.5200 ####[facility] [address] [place], [address] Hematocrit (Bld) [Volume fraction] 39.0 % Normal 37-47 [facility] Comment on above: Performed By: #### L 100.0100, L300.3900, L501.9520, L500.2500, L501.5200 ####[facility] [address] [place], [address] Hemoglobin (Bld) [Mass/Vol] 12.5 g/dL Normal 12.0-15. 0 [facility] Comment on above: Performed By: #### L 100.0100, L300.3900, L501.9520, L500.2500, L501.5200 ####[facility] [address] [place], [address] IG% 0.400 Normal 0.0-0.9 [facility] Comment on above: Result Comment: IG% - Immature Granulocytes (promyelocytes, myelocytes andmetamyelocytes) > 1% indicates that a LEFT SHIFT is Present. Performed By: #### L 100.0100, L300.3900, L501.9520, L500.2500, L501.5200 ####[facility] [address] [place], [address] Lymphocytes/100 WBC (Bld) 21.6 % Normal 19-41 [facility] Comment on above: Performed By: #### L 100.0100, L300.3900, L501.9520, L500.2500, L501.5200 ####[facility] [address] [place], [address] MCH (RBC) [Entitic mass] 31.7 pg Normal 27.0-32.0 [facility] Comment on above: Performed By: #### L 100.0100, L300.3900, L501.9520, L500.2500, L501.5200 ####[facility] [address] [place], [address] MCHC (RBC) [Mass/Vol] 32.1 g/dL Normal 32-36 [facility] Comment on above: Performed By: #### L 100.0100, L300.3900, L501.9520, L500.2500, L501.5200 ####[facility] [address] [place], [address] MCV (RBC) [Entitic vol] 99.0 fL Normal 81-99 [facility] Comment on above: Performed By: #### L 100.0100, L300.3900, L501.9520, L500.2500, L501.5200 ####[facility] [address] [place], [address] Monocytes/100 WBC (Bld) 10.9 % High 0-10 [facility] Comment on above: Performed By: #### L 100.0100, L300.3900, L501.9520, L500.2500, L501.5200 ####[facility] [address] [place], [address] Neutrophils/100 WBC (Bld) 65.2 % Normal 47-70 [facility] Comment on above: Performed By: #### L 100.0100, L300.3900, L501.9520, L500.2500, L501.5200 ####[facility] [address] [place], [address] Nucleated RBC (Bld) [#/Vol] 0 10*3/uL Normal 0-5 [facility] Comment on above: Performed By: #### L 100.0100, L300.3900, L501.9520, L500.2500, L501.5200 ####[facility] [address] [place], [address] Platelet mean volume (Bld) [Entitic vol] 8.8 fL Normal 6.2-12.0 [facility] Comment on above: Performed By: #### L 100.0100, L300.3900, L501.9520, L500.2500, L501.5200 ####[facility] [address] [place], [address] Platelets (Bld) [#/Vol] 291 10*3/uL Normal 150-450 [facility] Comment on above: Performed By: #### L 100.0100, L300.3900, L501.9520, L500.2500, L501.5200 ####[facility] [address] [place], [address] RBC (Bld) [#/Vol] 3.94 10*6/uL Low 4.2-5.4 [facility] Comment on above: Performed By: #### L 100.0100, L300.3900, L501.9520, L500.2500, L501.5200 ####[facility] [address] [place], [address] RDW SD 47.5 fl High 35.1-43.9 [facility] Comment on above: Performed By: #### L 100.0100, L300.3900, L501.9520, L500.2500, L501.5200 ####[facility] [address] [place], [address] WBC (Bld) [#/Vol] 7.0 10*3/uL Normal 4.4-11.[address] [facility] Comment on above: Performed By: #### L 100.0100, L300.3900, L501.9520, L500.2500, L501.5200 ####[facility] [address] [place], [address] Eosinophil percentageOrdered By: Lesli Watkins on 04-12-2024 Eosinophils/100 WBC (Bld) 1.3 % 0-5 [facility] Eosinophil percentage 1.3 % 0-5 [facility] Immature granulocytes/100 WB C Auto (Bld)Ordered By: Lesli Watkins on 04-12-2024 Immature granulocytes/100 WBC (Bld) 0.400 % 0.0-0.9 [facility] Comment on above: IG% - Immature Granu locytes (promyelocytes, myelocytes and metamyelocytes) > 1% indicates that a LEFT SHIFT is Present. Automated immature granulocyte percentage 0.400 % 0.0-0.9 [facility] International normalized rat io (INR) calculationOrdered By: Lesli Watkins on 04-12-2024 INR Coag (Bld) [Relative time] 1.0 {INR} [facility] [employer] normalized ratio (INR) calculation 1.0 [facility] Lymphocytes Auto (Unsp spec) [#/Vol]Ordered By: Lesli Watkins on 04-12-2024 Lymphocytes (Bld) [#/Vol] 1.50 10*3/uL 0.83-4.5 1 [facility] Absolute lymphocyte count 1.50 X10^3/uL 0.83-4. 51 [facility] Lymphocytes/100 WBC Auto (Un sp spec)Ordered By: Lesli Watkins on 04-12-2024 Lymphocytes/100 WBC (Bld) 21.6 % [facility] Automated lymphocyte count as percentage of total leukocytes 21.6 % [facility] Magnesiumon 04-12-2024 Magnesium [Mass/Vol] 2.3 mg/dL Normal 1.6-2.6 [facility] Comment on above: Performed By: #### L 100.0100, L300.3900, L501.9520, L500.2500, L501.5200 ####[facility] [address] [facility] [place], [address] Magnesium measurementOrdered By: Lesli Watkins on 04-12-2024 Magnesium [Mass/Vol] 2.3 mg/dL 1.6-2.6 [facility] Magnesium measurement 2.3 mg/dL 1.6-2.6 [facility] Monocyte percentageOrdered B y: Lesli Watkins on 04-12-2024 Monocytes/100 WBC (Bld) 10.9 % High 0-10 [facility] Monocyte percentage 10.9 % High 0-10 [facility] Neutrophil percentageOrdered By: Lesli Watkins on 04-12-2024 Neutrophils/100 WBC (Bld) 65.2 % 47-70 [facility] Neutrophil percentage 65.2 % 47-70 [facility] Nucleated red blood cell per centageOrdered By: Lesli Watkins on 04-12-2024 Nucleated RBC/100 WBC (Bld) [Ratio] 0 % 0-5 [facility] Nucleated red blood cell percentage 0 % 0-5 [facility] Prothrombin Time w/INRon INR Coag (PPP) [Relative time] 1.0 {INR} Normal [facility] Comment on above: Performed By: #### L 100.0100, L300.3900, L501.9520, L500.2500, L501.5200 ####[facility] [address] [place], [address] PT Coag (PPP) [Time] 13.8 s Normal 11.7-14.9 [facility] Comment on above: Performed By: #### L 100.0100, L300.3900, L501.9520, L500.2500, L501.5200 ####[facility] [address] [place], [address] Prothrombin timeOrdered By: Lesli Watkins on 04-12-2024 PT Coag (PPP) [Time] 13.8 s 11.7-14.9 [facility] Prothrombin time 13.8 SECONDS 11.7-14.[address] [facility] Serum or plasma thyroid stim ulating hormone (TSH) measurement (units/volume)Ordered By: Lesli Watkins on 04-12-2024 TSH Qn 0.856 uIU/mL 0.358-3.740 [facility] TSH QnOrdered By: Lesli mccoy on 04-12-2024 Thyroid Stimulating Hormone (TSH) 0.856 uIU/mL 0.358-3.740 [facility] Serum or plasma thyroid stimulating hormone (TSH) measurement (units/volume) 0.856 uIU/mL 0.358-3.740 [facility] Thyroid Stim Hormone (TSH)on 04-12-2024 TSH 0.856 uIU/mL Normal 0.358-3.740 [facility] Comment on above: Performed By: #### L 100.0100, L300.3900, L501.9520, L500.2500, L501.5200 ####[facility] [address] [place], [address] Transvaginal Non-on 04-12-2024 Transvaginal Non- Normal [facility] Basic Metabolic Profile (BMP )on 04-11-2024 BUN/CRE 18.3 RATIO Normal 10-20 [facility] Comment on above: Performed By: #### L 100.0100, L500.2500 ####[facility] [address] [place], [address] CA,Total 9.1 mg/dL Normal 8.5-10.1 [facility] Comment on above: Performed By: #### L 100.0100, L500.2500 ####[facility] [address] [place], [address] Chloride [Moles/Vol] 103 mmol/L Normal 98-107 [facility] Comment on above: Performed By: #### L 100.0100, L500.2500 ####[facility] [address] [place], [address] CO2 [Moles/Vol] 27.0 mmol/L Normal 21.0-32.0 [facility] Comment on above: Performed By: #### L 100.0100, L500.2500 ####[facility] [address] [place], [address] Creatinine [Mass/Vol] 0.76 mg/dL Normal 0.55-1.02 [facility] Comment on above: Result Comment: The validity of the calculated GFR GFRAA in patients over70 years has not been determined. Clinical correlation isessential. Performed By: #### L 100.0100, L500.2500 ####[facility] [address] [place], [address] ECRCL 53.96 ml/min Normal [facility] Comment on above: Performed By: #### L 100.0100, L500.2500 ####[facility] [address] [place], [address] EST GFR - AA 94 mL/min Normal >60 [facility] Comment on above: Result Comment: Afri can [place] GFR Calc Performed By: #### L 100.0100, L500.2500 ####[facility] [address] [place], [address] GAP 6 Normal 5-15 [facility] Comment on above: Performed By: #### L 100.0100, L500.2500 ####[facility] [address] [place], [address] GFR/1.73 sq M.predicted among non-blacks MDRD (S/P/Bld) [Vol rate/Area] 78 mL/min/{1.73_m2} Normal >60 [facility] Comment on above: Result Comment: Non- GFR Calc Performed By: #### L 100.0100, L500.2500 ####[facility] [address] [place], [address] Glucose [Mass/Vol] 97 mg/dL Normal 74-[address] [facility] Comment on above: Performed By: #### L 100.0100, L500.2500 ####[facility] [address] [place], [address] Potassium [Moles/Vol] 4.2 mmol/L Normal 3.5-5.1 [facility] Comment on above: Performed By: #### L 100.0100, L500.2500 ####[facility] [address], [address] Sodium [Moles/Vol] 136 mmol/L Normal 136-[address] [facility] Comment on above: Performed By: #### L 100.0100, L500.2500 ####[facility] [address], [address] Urea nitrogen [Mass/Vol] 14 mg/dL Normal 7-18 [facility] Comment on above: Performed By: #### L 100.0100, L500.2500 ####[facility] [address] [place], [address] CBC W/Diff, Automatedon 03-31 Absolute Lymph 1.21 X10 3/uL Normal 0.83-4.51 [facility] Comment on above: Performed By: #### L 100.0100, L500.2500 ####[facility] [address] [place], [address] Absolute Neut 5.9 X10 3/uL Normal 2.0-7.7 [facility] Comment on above: Performed By: #### L 100.0100, L500.2500 ####[facility] [address] [place], [address] Basophils/100 WBC (Bld) 0.7 % Normal 0-1 [facility] Comment on above: Performed By: #### L 100.0100, L500.2500 ####[facility] [address] [place], [address] Eosinophils/100 WBC (Bld) 1.0 % Normal 0-5 [facility] Comment on above: Performed By: #### L 100.0100, L500.2500 ####[facility] [address] [place], [address] Erythrocyte distribution width (RBC) [Ratio] 13.0 % Normal 11.6-14.6 [facility] Comment on above: Performed By: #### L 100.0100, L500.2500 ####[facility] [address] [place], [address] Hematocrit (Bld) [Volume fraction] 38.0 % Normal 37-47 [facility] Comment on above: Performed By: #### L 100.0100, L500.2500 ####[facility] [address] [place], [address] Hemoglobin (Bld) [Mass/Vol] 12.7 g/dL Normal 12.0-15. 0 [facility] Comment on above: Performed By: #### L 100.0100, L500.2500 ####[facility] [address] [place], [address] IG% 0.400 Normal 0.0-0.9 [facility] Comment on above: Result Comment: IG% - Immature Granulocytes (promyelocytes, myelocytes andmetamyelocytes) > 1% indicates that a LEFT SHIFT is Present. Performed By: #### L 100.0100, L500.2500 ####[facility] [address] [place], [address] Lymphocytes/100 WBC (Bld) 15.1 % Low 19-41 [facility] Comment on above: Performed By: #### L 100.0100, L500.2500 ####[facility] [address] [place], [address] MCH (RBC) [Entitic mass] 32.4 pg High 27.0-32.0 [facility] Comment on above: Performed By: #### L 100.0100, L500.2500 ####[facility] [address] [place], [address] MCHC (RBC) [Mass/Vol] 33.4 g/dL Normal 32-36 [facility] Comment on above: Performed By: #### L 100.0100, L500.2500 ####[facility] [address] [place], [address] MCV (RBC) [Entitic vol] 96.9 fL Normal 81-99 [facility] Comment on above: Performed By: #### L 100.0100, L500.2500 ####[facility] [address] [place], [address] Monocytes/100 WBC (Bld) 9.0 % Normal 0-10 [facility] Comment on above: Performed By: #### L 100.0100, L500.2500 ####[facility] [address] [place], [address] Neutrophils/100 WBC (Bld) 73.8 % High 47-70 [facility] Comment on above: Performed By: #### L 100.0100, L500.2500 ####[facility] [address] [place], [address] Nucleated RBC (Bld) [#/Vol] 0 10*3/uL Normal 0-5 [facility] Comment on above: Performed By: #### L 100.0100, L500.2500 ####[facility] [address] [place], [address] Platelet mean volume (Bld) [Entitic vol] 9.1 fL Normal 6.2-12.0 [facility] Comment on above: Performed By: #### L 100.0100, L500.2500 ####[facility] [address] [place], [address] Platelets (Bld) [#/Vol] 296 10*3/uL Normal 150-450 [facility] Comment on above: Performed By: #### L 100.0100, L500.2500 ####[facility] [address] [place], [address] RBC (Bld) [#/Vol] 3.92 10*6/uL Low 4.2-5.4 [facility] Comment on above: Performed By: #### L 100.0100, L500.2500 ####[facility] [address] [place], [address] RDW SD 46.2 fl High 35.1-43.9 [facility] Comment on above: Performed By: #### L 100.0100, L500.2500 ####[facility] [address] [place], [address] WBC (Bld) [#/Vol] 8.0 10*3/uL Normal 4.4-11.[address] [facility] Comment on above: Performed By: #### L 100.0100, L500.2500 ####[facility] [address] [place], [address] Emergency Department Summary on 04-11-2024 Emergency Department Summary Normal [facility] H AND P Exam - Hospitaliston 04-11-2024 H&P Exam - Hospitalist Normal [facility] Lumbar Spine 2 or 3 Viewson 04-11-2024 Lumbar Spine 2 or 3 Views Normal [facility] Emergency Department Summary on 03-30-2024 Emergency Department Summary Normal [facility] HIP, UNI W/ Pelvis 2-3 Views on 03-30-2024 HIP, UNI W/ Pelvis 2-3 Views Normal [facility] Lumbar Spine 2 or 3 Viewson 03-30-2024 Lumbar Spine 2 or 3 Views Normal [facility] Brain/Head without Contrasto n 02-25-2024 Brain/Head without Contrast Normal [facility] Emergency Department Summary on 02-25-2024 Emergency Department Summary Normal [facility] Spine Cervical without Contr ason 02-25-2024 Spine Cervical without Contras Normal [facility] Gastroenterology Visit Repor ton 02-23-2024 Gastroenterology Visit Report Normal [facility] Re-Evaluation - PT (1)on Re-Evaluation - PT (1) Normal [facility] Dexa Bone Density/Append Ske sergio 01-08-2024 Dexa Bone Density/Append Skel Normal [facility] Inital Evaluation (1) - PTon 12-29-2023 Inital Evaluation (1) - PT Normal [facility] CBC W/Diff, Automatedon 11-29 Absolute Lymph 1.16 X10 3/uL Normal 0.83-4.51 [facility] Comment on above: Performed By: #### L 506.1000, L500.4050, L501.9520, L100.0100, L500.4100 ####[facility] [address], [address] Absolute Neut 3.8 X10 3/uL Normal 2.0-7.7 [facility] Comment on above: Performed By: #### L 506.1000, L500.4050, L501.9520, L100.0100, L500.4100 ####[facility] [address] [place], [address] Basophils/100 WBC (Bld) 0.7 % Normal 0-1 [facility] Comment on above: Performed By: #### L 506.1000, L500.4050, L501.9520, L100.0100, L500.4100 ####[facility] [address] [place], [address] Eosinophils/100 WBC (Bld) 2.1 % Normal 0-5 [facility] Comment on above: Performed By: #### L 506.1000, L500.4050, L501.9520, L100.0100, L500.4100 ####[facility] [address] [place], [address] Erythrocyte distribution width (RBC) [Ratio] 13.0 % Normal 11.6-14.6 [facility] Comment on above: Performed By: #### L 506.1000, L500.4050, L501.9520, L100.0100, L500.4100 ####[facility] [address] [place], [address] Hematocrit (Bld) [Volume fraction] 40.5 % Normal 37-47 [facility] Comment on above: Performed By: #### L 506.1000, L500.4050, L501.9520, L100.0100, L500.4100 ####[facility] [address] [place], [address] Hemoglobin (Bld) [Mass/Vol] 12.8 g/dL Normal 12.0-15. 0 [facility] Comment on above: Performed By: #### L 506.1000, L500.4050, L501.9520, L100.0100, L500.4100 ####[facility] [address] [place], [address] IG% 0.500 Normal 0.0-0.9 [facility] Comment on above: Result Comment: IG% - Immature Granulocytes (promyelocytes, myelocytes andmetamyelocytes) > 1% indicates that a LEFT SHIFT is Present. Performed By: #### L 506.1000, L500.4050, L501.9520, L100.0100, L500.4100 ####[facility] [address] [place], [address] Lymphocytes/100 WBC (Bld) 20.4 % Normal 19-41 [facility] Comment on above: Performed By: #### L 506.1000, L500.4050, L501.9520, L100.0100, L500.4100 ####[facility] [address] [place], [address] MCH (RBC) [Entitic mass] 31.7 pg Normal 27.0-32.0 [facility] Comment on above: Performed By: #### L 506.1000, L500.4050, L501.9520, L100.0100, L500.4100 ####[facility] [address] [place], [address] MCHC (RBC) [Mass/Vol] 31.6 g/dL Low 32-36 [facility] Comment on above: Performed By: #### L 506.1000, L500.4050, L501.9520, L100.0100, L500.4100 ####[facility] [address] [place], [address] MCV (RBC) [Entitic vol] 100.2 fL High 81-99 [facility] Comment on above: Performed By: #### L 506.1000, L500.4050, L501.9520, L100.0100, L500.4100 ####[facility] [address] [place], [address] Monocytes/100 WBC (Bld) 9.3 % Normal 0-10 [facility] Comment on above: Performed By: #### L 506.1000, L500.4050, L501.9520, L100.0100, L500.4100 ####[facility] [address] [place], [address] Neutrophils/100 WBC (Bld) 67.0 % Normal 47-70 [facility] Comment on above: Performed By: #### L 506.1000, L500.4050, L501.9520, L100.0100, L500.4100 ####[facility] [address] [place], [address] Nucleated RBC (Bld) [#/Vol] 0 10*3/uL Normal 0-5 [facility] Comment on above: Performed By: #### L 506.1000, L500.4050, L501.9520, L100.0100, L500.4100 ####[facility] [address] [place], [address] Platelet mean volume (Bld) [Entitic vol] 9.3 fL Normal 6.2-12.0 [facility] Comment on above: Performed By: #### L 506.1000, L500.4050, L501.9520, L100.0100, L500.4100 ####[facility] [address] [place], [address] Platelets (Bld) [#/Vol] 213 10*3/uL Normal 150-450 [facility] Comment on above: Performed By: #### L 506.1000, L500.4050, L501.9520, L100.0100, L500.4100 ####[facility] [address] [place], [address] RBC (Bld) [#/Vol] 4.04 10*6/uL Low 4.2-5.4 [facility] Comment on above: Performed By: #### L 506.1000, L500.4050, L501.9520, L100.0100, L500.4100 ####[facility] [address] [place], [address] RDW SD 48.1 fl High 35.1-43.9 [facility] Comment on above: Performed By: #### L 506.1000, L500.4050, L501.9520, L100.0100, L500.4100 ####[facility] [address] [place], [address] WBC (Bld) [#/Vol] 5.7 10*3/uL Normal 4.4-11.[address] [facility] Comment on above: Performed By: #### L 506.1000, L500.4050, L501.9520, L100.0100, L500.4100 ####[facility] [address] [place], [address] [facility] Albumin [Mass/Vol] 3.4 g/dL Normal 3.2-5.[address] [facility] Comment on above: Performed By: #### L 506.1000, L500.4050, L501.9520, L100.0100, L500.4100 ####[facility] [address] [place], [address] Albumin/Globulin [Mass ratio] 0.8 {ratio} Low 0.9-2.4 [facility] Comment on above: Performed By: #### L 506.1000, L500.4050, L501.9520, L100.0100, L500.4100 ####[facility] [address] [place], [address] ALK P 76 U/L Normal 45-117 [facility] Comment on above: Performed By: #### L 506.1000, L500.4050, L501.9520, L100.0100, L500.4100 ####[facility] [address] [place], [address] ALT [Catalytic activity/Vol] 22 U/L Normal 13-56 [facility] Comment on above: Performed By: #### L 506.1000, L500.4050, L501.9520, L100.0100, L500.4100 ####[facility] [address] [place], [address] AST [Catalytic activity/Vol] 20 U/L Normal 15-37 [facility] Comment on above: Performed By: #### L 506.1000, L500.4050, L501.9520, L100.0100, L500.4100 ####[facility] [address] [place], [address] Bilirubin [Mass/Vol] 0.40 mg/dL Normal 0.20-1.00 [facility] Comment on above: Result Comment: For patients on eltrombopag therapy, use of Dimension [place] TBIL is not recommended. Performed By: #### L 506.1000, L500.4050, L501.9520, L100.0100, L500.4100 ####[facility] [address] [place], [address] BUN/CRE 25.6 RATIO High 10-20 [facility] Comment on above: Performed By: #### L 506.1000, L500.4050, L501.9520, L100.0100, L500.4100 ####[facility] [address] [place], [address] CA,Total 9.4 mg/dL Normal 8.5-10.1 [facility] Comment on above: Performed By: #### L 506.1000, L500.4050, L501.9520, L100.0100, L500.4100 ####[facility] [address] [place], [address] Chloride [Moles/Vol] 103 mmol/L Normal 98-107 [facility] Comment on above: Performed By: #### L 506.1000, L500.4050, L501.9520, L100.0100, L500.4100 ####[facility] [address] [place], [address] CO2 [Moles/Vol] 29.0 mmol/L Normal 21.0-32.0 [facility] Comment on above: Performed By: #### L 506.1000, L500.4050, L501.9520, L100.0100, L500.4100 ####[facility] [address] [place], [address] Creatinine [Mass/Vol] 0.78 mg/dL Normal 0.55-1.02 [facility] Comment on above: Result Comment: The validity of the calculated GFR GFRAA in patients over70 years has not been determined. Clinical correlation isessential. Performed By: #### L 506.1000, L500.4050, L501.9520, L100.0100, L500.4100 ####[facility] [address] [place], [address] EST GFR - AA 92 mL/min Normal >60 [facility] Comment on above: Result Comment: Afri can Omani GFR Calc Performed By: #### L 506.1000, L500.4050, L501.9520, L100.0100, L500.4100 ####[facility] [address] [place], [address] GAP 6 Normal 5-15 [facility] Comment on above: Performed By: #### L 506.1000, L500.4050, L501.9520, L100.0100, L500.4100 ####[facility] [address] [place], [address] GFR/1.73 sq M.predicted among non-blacks MDRD (S/P/Bld) [Vol rate/Area] 76 mL/min/{1.73_m2} Normal >60 [facility] Comment on above: Result Comment: Non- GFR Calc Performed By: #### L 506.1000, L500.4050, L501.9520, L100.0100, L500.4100 ####[facility] [address] [place], [address] Globulin (S) [Mass/Vol] 4.2 g/dL Normal 2.2-4.2 [facility] Comment on above: Performed By: #### L 506.1000, L500.4050, L501.9520, L100.0100, L500.4100 ####[facility] [address] [place], [address] Glucose [Mass/Vol] 100 mg/dL Normal 74-[address] [facility] Comment on above: Result Comment: Fast ing Glucose result from 100 to 125 mg/dLsuggests IMPAIRED HOMEOSTASIS per A.D.A. criteria. Performed By: #### L 506.1000, L500.4050, L501.9520, L100.0100, L500.4100 ####[facility] [address] [place], [address] Potassium [Moles/Vol] 4.2 mmol/L Normal 3.5-5.1 [facility] Comment on above: Performed By: #### L 506.1000, L500.4050, L501.9520, L100.0100, L500.4100 ####[facility] [address] [place], [address] Sodium [Moles/Vol] 138 mmol/L Normal 136-[address] [facility] Comment on above: Performed By: #### L 506.1000, L500.4050, L501.9520, L100.0100, L500.4100 ####[facility] [address] [place], [address] T PROT 7.6 g/dL Normal 6.4-8.2 [facility] Comment on above: Performed By: #### L 506.1000, L500.4050, L501.9520, L100.0100, L500.4100 ####[facility] [address] [place], [address] Urea nitrogen [Mass/Vol] 20 mg/dL High 7-18 [facility] Comment on above: Performed By: #### L 506.1000, L500.4050, L501.9520, L100.0100, L500.4100 ####[facility] [address] [place], [address] Lipid Profileon 12-15-2023 Cholesterol [Mass/Vol] 176 mg/dL Normal 200 [facility] Comment on above: Result Comment: <200 mg/dL Desirable 200-240 mg/dL Borderline >240 mg/dL High Risk Performed By: #### L 506.1000, L500.4050, L501.9520, L100.0100, L500.4100 ####[facility] [address] [place], [address] Cholesterol in HDL [Mass/Vol] 74 mg/dL Normal [facility] Comment on above: Result Comment: The drugs N-Acetylcysteine and Metamizole may falselydepress this assay. Reference Range HDL <40 mg/dL Low HDL Cholesterol HDL >or= 60 mg/dL High HDL Cholesterol Performed By: #### L 506.1000, L500.4050, L501.9520, L100.0100, L500.4100 ####[facility] [address] [place], [address] Cholesterol in LDL [Mass/Vol] 93 mg/dL Normal 0-130 [facility] Comment on above: Performed By: #### L 506.1000, L500.4050, L501.9520, L100.0100, L500.4100 ####[facility] [address] [place], [address] Cholesterol in VLDL [Mass/Vol] 9 mg/dL Normal 5-40 [facility] Comment on above: Performed By: #### L 506.1000, L500.4050, L501.9520, L100.0100, L500.4100 ####[facility] [address] [place], [address] Triglyceride [Mass/Vol] 46 mg/dL Normal [facility] Comment on above: Result Comment: The drugs N-Acetylcysteine and Metamizole may falselydepress this assay.Serum Triglycerides Reference Interval Normal <150 mg/dL Borderline high 150 - 199 mg/dL High 200 - 499 mg/dL Very High > or = 500 mg/dL Performed By: #### L 506.1000, L500.4050, L501.9520, L100.0100, L500.4100 ####[facility] [address] [place], [address] Thyroid Stim Hormone (TSH)on 12-15-2023 TSH 0.871 uIU/mL Normal 0.358-3.740 [facility] Comment on above: Performed By: #### L 506.1000, L500.4050, L501.9520, L100.0100, L500.4100 ####[facility] [address] [place], [address] Vitamin D,25 Hydroxyon 12-14 Vitamin D 25-OH 68.6 ng/mL Normal [facility] Comment on above: Result Comment: Yesenia min D 25(OH) Status Range Deficiency <20 ng/mL (50nmol/L) Insufficiency 20 - 30 ng/mL (50 - 75 nmol/L) Sufficiency 30 - 100 ng/mL (75 - 250 nmol/L) Toxicity >100 ng/mL (>250 nmol/L) Performed By: #### L 506.1000, L500.4050, L501.9520, L100.0100, L500.4100 ####[facility] [address] [place], [place], [id number] Cerv Spine 4 or 5 Viewson Cerv Spine 4 or 5 Views Normal [facility] L/S Spine Min 4 Viewson 10-29 L/S Spine Min 4 Views Normal [facility] Orthopedic Visit Reporton Orthopedic Visit Report Normal [facility] Cardiology Visit Reporton Cardiology Visit Report Normal [facility] NCS and/or EMG Patienton NCS and/or EMG Patient Normal [facility] NCS and/or EMG Patienton NCS and/or EMG Patient Normal [facility] Brain without Contraston Brain without Contrast Normal [facility] Spine Cervical (Routine)on 0 09-30-2023 Spine Cervical (Routine) Normal [facility] Spine Lumbar (Routine)on Spine Lumbar (Routine) Normal [facility] Spine Thoracic (Routine)on 0 09-30-2023 Spine Thoracic (Routine) Normal [facility] PT D/C Summary (1)on 024 PT D/C Summary (1) Normal [facility] Protein Electroph, Son 09-10 Albumin [Mass/Vol] 3.8 g/dL Normal 2.9-4.[address] [facility] Comment on above: Performed By: #### L 500.4050, L503.0105, L100.0100, L501.6710, L3100.3450, L101.9900, L501.9520 ####[facility] [address] [place], [place], [id number] Albumin/Globulin [Mass ratio] 1.0 {ratio} Normal 0.7-1.7 [facility] Comment on above: Performed By: #### L 500.4050, L503.0105, L100.0100, L501.6710, L3100.3450, L101.9900, L501.9520 ####[facility] [address] [place], [address] ALPHA-1 GLOBUL 0.2 g/dL Normal 0.0-0.4 [facility] Comment on above: Performed By: #### L 500.4050, L503.0105, L100.0100, L501.6710, L3100.3450, L101.9900, L501.9520 ####[facility] [address] [place], [address] ALPHA-2 GLOBUL 0.8 g/dL Normal 0.4-1.0 [facility] Comment on above: Performed By: #### L 500.4050, L503.0105, L100.0100, L501.6710, L3100.3450, L101.9900, L501.9520 ####[facility] [address] [place], [address] BETA GLOBULIN 1.3 g/dL Normal 0.7-1.3 [facility] Comment on above: Performed By: #### L 500.4050, L503.0105, L100.0100, L501.6710, L3100.3450, L101.9900, L501.9520 ####[facility] [address] [place], [address] GAMMA GLOBULIN 1.6 g/dL Normal 0.4-1.8 [facility] Comment on above: Performed By: #### L 500.4050, L503.0105, L100.0100, L501.6710, L3100.3450, L101.9900, L501.9520 ####[facility] [address] [place], [address] Globulin (S) [Mass/Vol] 3.9 g/dL Normal 2.2-3.9 [facility] Comment on above: Performed By: #### L 500.4050, L503.0105, L100.0100, L501.6710, L3100.3450, L101.9900, L501.9520 ####[facility] [address] [place], [place], [id number] INTERPRETATION Comment Normal . [facility] Comment on above: Result Comment: Prot ein electrophoresis scan will follow via computer,mail, or crisis manager delivery. Performed By: #### L 500.4050, L503.0105, L100.0100, L501.6710, L3100.3450, L101.9900, L501.9520 ####[facility] [address] [place], [address] M-SPIKE Not Observed Normal Not Observed [facility] Comment on above: Performed By: #### L 500.4050, L503.0105, L100.0100, L501.6710, L3100.3450, L101.9900, L501.9520 ####[facility] [address] [place], [address] NOTE: Comment Normal . [facility] Comment on above: Result Comment: The SPE pattern appears unremarkable. Evidence ofmonoclonal protein is not apparent.Performed at: [address] [id number] Director: Olivier Jenkins PhD, Phone: [phone] Performed By: #### L 500.4050, L503.0105, L100.0100, L501.6710, L3100.3450, L101.9900, L501.9520 ####[facility] [facility] [address] [place], [address] Protein [Mass/Vol] 7.7 g/dL Normal 6.0-8.[address] [facility] Comment on above: Performed By: #### L 500.4050, L503.0105, L100.0100, L501.6710, L3100.3450, L101.9900, L501.9520 ####[facility] [address] [place], [address] CBC W/Diff, Automatedon 08-29 Absolute Lymph 1.36 X10 3/uL Normal 0.83-4.51 [facility] Comment on above: Performed By: #### L 500.4050, L503.0105, L100.0100, L501.6710, L3100.3450, L101.9900, L501.9520 ####[facility] [address] [place], [address] Absolute Neut 4.4 X10 3/uL Normal 2.0-7.7 [facility] Comment on above: Performed By: #### L 500.4050, L503.0105, L100.0100, L501.6710, L3100.3450, L101.9900, L501.9520 ####[facility] [address] [place], [address] Basophils/100 WBC (Bld) 0.5 % Normal 0-1 [facility] Comment on above: Performed By: #### L 500.4050, L503.0105, L100.0100, L501.6710, L3100.3450, L101.9900, L501.9520 ####[facility] [address] [place], [address] Eosinophils/100 WBC (Bld) 2.6 % Normal 0-5 [facility] Comment on above: Performed By: #### L 500.4050, L503.0105, L100.0100, L501.6710, L3100.3450, L101.9900, L501.9520 ####[facility] [address] [place], [address] Erythrocyte distribution width (RBC) [Ratio] 13.2 % Normal 11.6-14.6 [facility] Comment on above: Performed By: #### L 500.4050, L503.0105, L100.0100, L501.6710, L3100.3450, L101.9900, L501.9520 ####[facility] [address] [place], [address] Hematocrit (Bld) [Volume fraction] 42.3 % Normal 37-47 [facility] Comment on above: Performed By: #### L 500.4050, L503.0105, L100.0100, L501.6710, L3100.3450, L101.9900, L501.9520 ####[facility] [address] [place], [address] Hemoglobin (Bld) [Mass/Vol] 13.7 g/dL Normal 12.0-15. 0 [facility] Comment on above: Performed By: #### L 500.4050, L503.0105, L100.0100, L501.6710, L3100.3450, L101.9900, L501.9520 ####[facility] [address] [place], [address] IG% 0.300 Normal 0.0-0.9 [facility] Comment on above: Result Comment: IG% - Immature Granulocytes (promyelocytes, myelocytes andmetamyelocytes) > 1% indicates that a LEFT SHIFT is Present. Performed By: #### L 500.4050, L503.0105, L100.0100, L501.6710, L3100.3450, L101.9900, L501.9520 ####[facility] [address] [place], [address] Lymphocytes/100 WBC (Bld) 21.1 % Normal 19-41 [facility] Comment on above: Performed By: #### L 500.4050, L503.0105, L100.0100, L501.6710, L3100.3450, L101.9900, L501.9520 ####[facility] [address] [place], [address] MCH (RBC) [Entitic mass] 32.5 pg High 27.0-32.0 [facility] Comment on above: Performed By: #### L 500.4050, L503.0105, L100.0100, L501.6710, L3100.3450, L101.9900, L501.9520 ####[facility] [address] [place], [address] MCHC (RBC) [Mass/Vol] 32.4 g/dL Normal 32-36 [facility] Comment on above: Performed By: #### L 500.4050, L503.0105, L100.0100, L501.6710, L3100.3450, L101.9900, L501.9520 ####[facility] [address] [place], [address] MCV (RBC) [Entitic vol] 100.2 fL High 81-99 [facility] Comment on above: Performed By: #### L 500.4050, L503.0105, L100.0100, L501.6710, L3100.3450, L101.9900, L501.9520 ####[facility] [address] [place], [address] Monocytes/100 WBC (Bld) 7.9 % Normal 0-10 [facility] Comment on above: Performed By: #### L 500.4050, L503.0105, L100.0100, L501.6710, L3100.3450, L101.9900, L501.9520 ####[facility] [address] [place], [address] Neutrophils/100 WBC (Bld) 67.6 % Normal 47-70 [facility] Comment on above: Performed By: #### L 500.4050, L503.0105, L100.0100, L501.6710, L3100.3450, L101.9900, L501.9520 ####[facility] [address] [place], [address] Nucleated RBC (Bld) [#/Vol] 0 10*3/uL Normal 0-5 [facility] Comment on above: Performed By: #### L 500.4050, L503.0105, L100.0100, L501.6710, L3100.3450, L101.9900, L501.9520 ####[facility] [address] [place], [address] Platelet mean volume (Bld) [Entitic vol] 9.2 fL Normal 6.2-12.0 [facility] Comment on above: Performed By: #### L 500.4050, L503.0105, L100.0100, L501.6710, L3100.3450, L101.9900, L501.9520 ####[facility] [address] [place], [address] Platelets (Bld) [#/Vol] 223 10*3/uL Normal 150-450 [facility] Comment on above: Performed By: #### L 500.4050, L503.0105, L100.0100, L501.6710, L3100.3450, L101.9900, L501.9520 ####[facility] [address] [place], [address] RBC (Bld) [#/Vol] 4.22 10*6/uL Normal 4.2-5.4 [facility] Comment on above: Performed By: #### L 500.4050, L503.0105, L100.0100, L501.6710, L3100.3450, L101.9900, L501.9520 ####[facility] [address] [place], [address] RDW SD 48.8 fl High 35.1-43.9 [facility] Comment on above: Performed By: #### L 500.4050, L503.0105, L100.0100, L501.6710, L3100.3450, L101.9900, L501.9520 ####[facility] [address] [place], [place], [id number] WBC (Bld) [#/Vol] 6.5 10*3/uL Normal 4.4-11.[address] [facility] Comment on above: Performed By: #### L 500.4050, L503.0105, L100.0100, L501.6710, L3100.3450, L101.9900, L501.9520 ####[facility] [address] [place], [address] CRPon 09-09-2023 C-REACTIVE PROT < 2.90 Normal 0.0-3.0 [facility] Comment on above: Result Comment: C-Re active Protein (CRP) provides useful information for thediagnosis, therapy and monitoring of inflammatory processesand associated diseases. For the evaluation of Relative Riskfor Cardiovascular Disease, a High Sensitivity CRP (HSCRP)should be ordered. Performed By: #### L 500.4050, L503.0105, L100.0100, L501.6710, L3100.3450, L101.9900, L501.9520 ####[facility] [address] [place], [address] Comprehensive Metabolic Prof ilon 09-09-2023 Albumin [Mass/Vol] 3.7 g/dL Normal 3.2-5.[address] [facility] Comment on above: Performed By: #### L 500.4050, L503.0105, L100.0100, L501.6710, L3100.3450, L101.9900, L501.9520 ####[facility] [address] [place], [address] Albumin/Globulin [Mass ratio] 0.8 {ratio} Low 0.9-2.4 [facility] Comment on above: Performed By: #### L 500.4050, L503.0105, L100.0100, L501.6710, L3100.3450, L101.9900, L501.9520 ####[facility] [address] [place], [address] ALK P 80 U/L Normal 45-117 [facility] Comment on above: Performed By: #### L 500.4050, L503.0105, L100.0100, L501.6710, L3100.3450, L101.9900, L501.9520 ####[facility] [address] [place], [address] ALT [Catalytic activity/Vol] 27 U/L Normal 13-56 [facility] Comment on above: Performed By: #### L 500.4050, L503.0105, L100.0100, L501.6710, L3100.3450, L101.9900, L501.9520 ####[facility] [address] [place], [address] AST [Catalytic activity/Vol] 29 U/L Normal 15-37 [facility] Comment on above: Performed By: #### L 500.4050, L503.0105, L100.0100, L501.6710, L3100.3450, L101.9900, L501.9520 ####[facility] [address] [place], [address] Bilirubin [Mass/Vol] 0.40 mg/dL Normal 0.20-1.00 [facility] Comment on above: Result Comment: For patients on eltrombopag therapy, use of [place] TBIL is not recommended. Performed By: #### L 500.4050, L503.0105, L100.0100, L501.6710, L3100.3450, L101.9900, L501.9520 ####[facility] [address] [place], [address] BUN/CRE 22.0 RATIO High 10-20 [facility] Comment on above: Performed By: #### L 500.4050, L503.0105, L100.0100, L501.6710, L3100.3450, L101.9900, L501.9520 ####[facility] [address] [place], [address] CA,Total 9.6 mg/dL Normal 8.5-10.1 [facility] Comment on above: Performed By: #### L 500.4050, L503.0105, L100.0100, L501.6710, L3100.3450, L101.9900, L501.9520 ####[facility] [address] [place], [address] Chloride [Moles/Vol] 104 mmol/L Normal 98-107 [facility] Comment on above: Performed By: #### L 500.4050, L503.0105, L100.0100, L501.6710, L3100.3450, L101.9900, L501.9520 ####[facility] [address] [place], [address] CO2 [Moles/Vol] 30.0 mmol/L Normal 21.0-32.0 [facility] Comment on above: Performed By: #### L 500.4050, L503.0105, L100.0100, L501.6710, L3100.3450, L101.9900, L501.9520 ####[facility] [address] [place], [address] Creatinine [Mass/Vol] 0.73 mg/dL Normal 0.55-1.02 [facility] Comment on above: Result Comment: The validity of the calculated GFR GFRAA in patients over70 years has not been determined. Clinical correlation isessential. Performed By: #### L 500.4050, L503.0105, L100.0100, L501.6710, L3100.3450, L101.9900, L501.9520 ####[facility] [address] [place], [address] EST GFR - AA 100 mL/min Normal >60 [facility] Comment on above: Result Comment: Afri can Omani GFR Calc Performed By: #### L 500.4050, L503.0105, L100.0100, L501.6710, L3100.3450, L101.9900, L501.9520 ####[facility] [address] [place], [address] GAP 3 Low 5-15 [facility] Comment on above: Performed By: #### L 500.4050, L503.0105, L100.0100, L501.6710, L3100.3450, L101.9900, L501.9520 ####[facility] [address] [place], [place], [phone] GFR/1.73 sq M.predicted among non-blacks MDRD (S/P/Bld) [Vol rate/Area] 83 mL/min/{1.73_m2} Normal >60 [facility] Comment on above: Result Comment: Non- GFR Calc Performed By: #### L 500.4050, L503.0105, L100.0100, L501.6710, L3100.3450, L101.9900, L501.9520 ####[facility] [address] [place], [address] Globulin (S) [Mass/Vol] 4.7 g/dL High 2.2-4.2 [facility] Comment on above: Performed By: #### L 500.4050, L503.0105, L100.0100, L501.6710, L3100.3450, L101.9900, L501.9520 ####[facility] [address] [place], [address] Glucose [Mass/Vol] 93 mg/dL Normal 74-[address] [facility] Comment on above: Performed By: #### L 500.4050, L503.0105, L100.0100, L501.6710, L3100.3450, L101.9900, L501.9520 ####[facility] [address] [place], [address] Potassium [Moles/Vol] 4.2 mmol/L Normal 3.5-5.1 [facility] Comment on above: Performed By: #### L 500.4050, L503.0105, L100.0100, L501.6710, L3100.3450, L101.9900, L501.9520 ####[facility] [address] [place], [address] Sodium [Moles/Vol] 137 mmol/L Normal 136-[address] [facility] Comment on above: Performed By: #### L 500.4050, L503.0105, L100.0100, L501.6710, L3100.3450, L101.9900, L501.9520 ####[facility] [address] [place], [address] T PROT 8.4 g/dL High 6.4-8.2 [facility] Comment on above: Performed By: #### L 500.4050, L503.0105, L100.0100, L501.6710, L3100.3450, L101.9900, L501.9520 ####[facility] [address] [place], [address] Urea nitrogen [Mass/Vol] 16 mg/dL Normal 7-18 [facility] Comment on above: Performed By: #### L 500.4050, L503.0105, L100.0100, L501.6710, L3100.3450, L101.9900, L501.9520 ####[facility] [address] [place], [address] Erythrocyte Sed Rateon 09-08 SED RATE 12 mm/hr Normal 0-30 [facility] Comment on above: Performed By: #### L 500.4050, L503.0105, L100.0100, L501.6710, L3100.3450, L101.9900, L501.9520 ####[facility] [address] [place], [address] Thyroid Stim Hormone (TSH)on 09-09-2023 TSH 1.55 uIU/mL Normal 0.358-3.74 [facility] Comment on above: Performed By: #### L 500.4050, L503.0105, L100.0100, L501.6710, L3100.3450, L101.9900, L501.9520 ####[facility] [address] [place], [place], [id number] Vitamin B12on 09-09-2023 Cobalamin (Vitamin B12) [Mass/Vol] 1999 pg/mL High 211-911 [facility] Comment on above: Performed By: #### L 500.4050, L503.0105, L100.0100, L501.6710, L3100.3450, L101.9900, L501.9520 ####[facility] [address] [place], [place], [id number] Absolute lymphocyte countOrd ered By: Michael Snowden on 05-28-2023 Lymphocytes Auto (Unsp spec) [#/Vol] 1.31 10*3/uL 0.83-4.51 [facility] Automated lymphocyte count a s percentage of total leukocytesOrdered By: Michael Snowden on 05-28-2023 Lymphocytes/100 WBC Auto (Unsp spec) 20.5 % 19-41 [facility] Basophil percentageOrdered B y: Michael Snowden on 05-28-2023 Basophils/100 WBC (Bld) 0.5 % 0-1 [facility] Bilirubin [Mass/Vol] 0.80 mg/dL 0.20-1.00 [facility] Comment on above: For patients on eltr ombopag therapy, use of [place] TBIL is not recommended. Chloride [Moles/Vol] 106 mmol/L 98-107 [facility] Cholesterol [Mass/Vol] 168 mg/dL <200 [facility] Comment on above: <200 mg/dL Desirable 200-240 mg/dL Borderline >240 mg/dL High Risk Eosinophils/100 WBC (Bld) 2.4 % 0-5 [facility] Glucose [Mass/Vol] 87 mg/dL 74-[address] [facility] Hemoglobin (Bld) [Mass/Vol] 12.7 g/dL 12.0-15. 0 [facility] Monocytes/100 WBC (Bld) 8.9 % 0-10 [facility] Neutrophils (Bld) [#/Vol] 4.3 10*3/uL 2.0-7.7 [facility] Neutrophils/100 WBC (Bld) 67.4 % 47-70 [facility] Potassium [Moles/Vol] 4.0 mmol/L 3.5-5.1 [facility] Protein [Mass/Vol] 7.6 g/dL 6.4-8.[address] [facility] Sodium [Moles/Vol] 139 mmol/L 136-[address] [facility] Triglyceride [Mass/Vol] 103 mg/dL <199 [facility] Comment on above: The drugs N-Acetylcy steine and Metamizole may falsely depress this assay.Serum Triglycerides Reference Interval Normal <150 mg/dL Borderline high 150 - 199 mg/dL High 200 - 499 mg/dL Very High > or = 500 mg/dL WBC (Bld) [#/Vol] 6.4 10*3/uL 4.4-11.[address] [facility] Determination of erythrocyte mean corpuscular volume (MCV)Ordered By: Michael Snowden on 05-28-2023 MCV (RBC) [Entitic vol] 100.8 fL 81-99 [facility] Erythrocyte distribution wid th ratioOrdered By: [facility] on 05-28-2023 Erythrocyte distribution width (RBC) [Ratio] 13.2 % 11.6-14.6 [facility] Erythrocyte distribution wid th standard deviationOrdered By: [facility] on 05-28-2023 Erythrocyte distribution width (RBC) [Entitic vol] 48.9 fL 35.1-43.[address] [facility] Hematocrit Auto (Bld) [Volum e fraction]Ordered By: [facility] on 05-28-2023 Hematocrit (Bld) [Volume fraction] 39.4 % 37-47 [facility] Immature granulocytes/100 WB C Auto (Bld)Ordered By: [facility] 05-28-2023 Immature granulocytes/100 WBC (Bld) 0.300 % 0.0-0.9 [facility] Comment on above: IG% - Immature Granu locytes (promyelocytes, myelocytes and metamyelocytes) > 1% indicates that a LEFT SHIFT is Present. Laboratory - Chemistry and C hemistry - challengeOrdered By: [facility] 05-28-2023 Albumin/Globulin [Mass ratio] 0.8 {ratio} 0.9-2.4 [facility] ALP [Catalytic activity/Vol] 78 U/L 45-117 [facility] ALT [Catalytic activity/Vol] 29 U/L 13-56 [facility] Cholesterol in HDL [Mass/Vol] 70 mg/dL >40 [facility] Comment on above: The drugs N-Acetylcy steine and Metamizole may falsely depress this assay. Reference Range HDL <40 mg/dL Low HDL Cholesterol HDL >or= 60 mg/dL High HDL Cholesterol Cholesterol in LDL [Mass/Vol] 77 mg/dL 0-130 [facility] CO2 [Moles/Vol] 28.0 mmol/L 21.0-32.0 [facility] Globulin (S) [Mass/Vol] 4.2 g/dL 2.2-4.2 [facility] Urea nitrogen/Creatinine [Mass ratio] 22.7 mg/mg 10-20 [facility] Laboratory - Hematology and Cell countsOrdered By: [facility] 05-28-2023 MCH (RBC) [Entitic mass] 32.5 pg 27.0-32.0 [facility] MCHC (RBC) [Mass/Vol] 32.2 g/dL 32-36 [facility] Nucleated RBC/100 WBC (Bld) [Ratio] 0 % 0-5 [facility] Platelet mean volume (Bld) [Entitic vol] 9.8 fL 6.2-12.0 [facility] Platelets (Bld) [#/Vol] 219 10*3/uL 150-450 [facility] No Panel InformationOrdered By: Michael Snowden on 05-28-2023 Estimated GFR (MDRD) Amer 97 mL/min >60 [facility] Comment on above: GFR Calc Estimated GFR (MDRD) Non-Af Amer 80 mL/min >60 [facility] Comment on above: Non- GFR Calc Vitamin D 25-Hydroxy 81.9 ng/mL [facility] Comment on above: Vitamin D 25(OH) Sta tus Range Deficiency <20 ng/mL (50nmol/L) Insufficiency 20 - 30 ng/mL (50 - 75 nmol/L) Sufficiency 30 - 100 ng/mL (75 - 250 nmol/L) Toxicity >100 ng/mL (>250 nmol/L) VLDL Cholesterol 21 mg/dL 5-40 [facility] RBC Auto (Bld) [#/Vol]Ordere d By: Michael Snowden on 05-28-2023 RBC (Bld) [#/Vol] 3.91 10*6/uL 4.2-5.4 [facility] Serum or plasma calcium gianluca urement (mass/volume)Ordered By: Michael Snowden on 05-28-2023 Calcium [Mass/Vol] 9.0 mg/dL 8.5-10.[address] [facility] Serum or plasma creatinine m easurement (mass/volume)Ordered By: Michael Snowden on 05-28-2023 Creatinine [Mass/Vol] 0.75 mg/dL 0.55-1.02 [facility] Comment on above: The validity of the calculated GFR & GFRAA in patients over 70 years has not been determined. Clinical correlation is essential. Serum or plasma thyroid stim ulating hormone (TSH) measurement (units/volume)Ordered By: Michael Snowden on 05-28-2023 TSH Qn 1.09 uIU/mL 0.358-3.74 [facility] Serum or plasma urea nitroge n measurement (mass/volume)Ordered By: Michael Snowden on 05-28-2023 Urea nitrogen [Mass/Vol] 17 mg/dL 7-18 [facility] Thin prep Papanicolaou smear with manual screeningOrdered By: Michael Snowden on 05-28-2023 Thin prep Papanicolaou smear with manual screening 3.4 g/dL 3.2-5.0 [facility] Thin prep Papanicolaou smear with manual screening 23 U/L 15-37 [facility] Thin prep Papanicolaou smear with manual screening 5 5-15 [facility] Absolute lymphocyte countOrd ered By: Gaetano Cleary on 05-09-2023 Lymphocytes Auto (Unsp spec) [#/Vol] 1.22 10*3/uL 0.83-4.51 [facility] Automated lymphocyte count a s percentage of total leukocytesOrdered By: Gaetano Cleary on 05-09-2023 Lymphocytes/100 WBC Auto (Unsp spec) 20.0 % 19-41 [facility] Basophil percentageOrdered B y: Gaetano Cleary on 05-09-2023 Basophils/100 WBC (Bld) 0.7 % 0-1 [facility] Eosinophils/100 WBC (Bld) 2.3 % 0-5 [facility] Hemoglobin (Bld) [Mass/Vol] 12.3 g/dL 12.0-15. 0 [facility] Monocytes/100 WBC (Bld) 8.4 % 0-10 [facility] Neutrophils (Bld) [#/Vol] 4.2 10*3/uL 2.0-7.7 [facility] Neutrophils/100 WBC (Bld) 68.1 % 47-70 [facility] WBC (Bld) [#/Vol] 6.1 10*3/uL 4.4-11.[address] [facility] Determination of erythrocyte mean corpuscular volume (MCV)Ordered By: Gaetano Cleary on 05-09-2023 MCV (RBC) [Entitic vol] 100.8 fL 81-99 [facility] Erythrocyte distribution wid th ratioOrdered By: Gaetano Cleary on 05-09-2023 Erythrocyte distribution width (RBC) [Ratio] 13.2 % 11.6-14.6 [facility] Erythrocyte distribution wid th standard deviationOrdered By: Gaetano Cleary on 05-09-2023 Erythrocyte distribution width (RBC) [Entitic vol] 49.1 fL 35.1-43.[address] [facility] Erythrocyte sedimentation ra teOrdered By: Gaetano Cleary on 05-09-2023 ESR (Bld) [Velocity] 18 mm/h 0-30 [facility] Hematocrit Auto (Bld) [Volum e fraction]Ordered By: Gaetano Cleary on 05-09-2023 Hematocrit (Bld) [Volume fraction] 39.9 % 37-47 [facility] Immature granulocytes/100 WB C Auto (Bld)Ordered By: Gaetano Cleary on 05-09-2023 Immature granulocytes/100 WBC (Bld) 0.500 % 0.0-0.9 [facility] Comment on above: IG% - Immature Granu locytes (promyelocytes, myelocytes and metamyelocytes) > 1% indicates that a LEFT SHIFT is Present. Laboratory - Hematology and Cell countsOrdered By: Gaetano Cleary on 05-09-2023 MCH (RBC) [Entitic mass] 31.1 pg 27.0-32.0 [facility] MCHC (RBC) [Mass/Vol] 30.8 g/dL 32-36 [facility] Nucleated RBC/100 WBC (Bld) [Ratio] 0 % 0-5 [facility] Platelet mean volume (Bld) [Entitic vol] 9.8 fL 6.2-12.0 [facility] Platelets (Bld) [#/Vol] 225 10*3/uL 150-450 [facility] No Panel InformationOrdered By: Gaetano Cleary on 05-09-2023 C-Reactive Protein Extended Range < 2.90 mg/L 0.0-3.0 [facility] Comment on above: C-Reactive Protein ( CRP) provides useful information for thediagnosis, therapy and monitoring of inflammatory processesand associated diseases. For the evaluation of Relative Riskfor Cardiovascular Disease, a High Sensitivity CRP (HSCRP)should be ordered. RBC Auto (Bld) [#/Vol]Ordere d By: Gaetano Cleary on 05-09-2023 RBC (Bld) [#/Vol] 3.96 10*6/uL 4.2-5.4 [facility] Absolute lymphocyte countOrd ered By: Michael Snowden on 11-27-2022 Lymphocytes Auto (Unsp spec) [#/Vol] 1.24 10*3/uL 0.83-4.51 [facility] Basophil percentageOrdered B y: Michael Snowden on 11-27-2022 Basophils/100 WBC (Bld) 0.8 % 0-1 [facility] Bilirubin [Mass/Vol] 0.30 mg/dL 0.20-1.00 [facility] Comment on above: For patients on eltr ombopag therapy, use of [place] TBIL is not recommended. Chloride [Moles/Vol] 110 mmol/L 98-107 [facility] Cholesterol [Mass/Vol] 169 mg/dL <200 [facility] Comment on above: <200 mg/dL Desirable 200-240 mg/dL Borderline >240 mg/dL High Risk Eosinophils/100 WBC (Bld) 2.5 % 0-5 [facility] Glucose [Mass/Vol] 93 mg/dL 74-[address] [facility] Neutrophils (Bld) [#/Vol] 3.3 10*3/uL 2.0-7.7 [facility] Neutrophils/100 WBC (Bld) 63.1 % 47-70 [facility] Potassium [Moles/Vol] 4.1 mmol/L 3.5-5.1 [facility] Protein [Mass/Vol] 7.4 g/dL 6.4-8.[address] [facility] Sodium [Moles/Vol] 143 mmol/L 136-[address] [facility] Triglyceride [Mass/Vol] 57 mg/dL <199 [facility] Comment on above: The drugs N-Acetylcy steine and Metamizole may falsely depress this assay.Serum Triglycerides Reference Interval Normal <150 mg/dL Borderline high 150 - 199 mg/dL High 200 - 499 mg/dL Very High > or = 500 mg/dL WBC (Bld) [#/Vol] 5.2 10*3/uL 4.4-11.[address] [facility] Blood erythrocytes count (nu mber/volume)Ordered By: Michael Snowden on 11-27-2022 RBC (Bld) [#/Vol] 3.78 10*6/uL 4.2-5.4 [facility] Blood hemoglobin measurement (mass/volume)Ordered By: Michael Snowden on 11-27-2022 Hemoglobin (Bld) [Mass/Vol] 11.9 g/dL 12.0-15. 0 [facility] Blood lymphocytes/100 leukoc ytesOrdered By: Michael Snowden on 11-27-2022 Lymphocytes/100 WBC (Bld) 23.8 % 19-41 [facility] Blood monocytes/100 leukocyt esOrdered By: Michael Snowden on 11-27-2022 Monocytes/100 WBC (Bld) 9.4 % 0-10 [facility] Blood platelet mean volumeOr dered By: Michael Sp on 11-27-2022 Platelet mean volume (Bld) [Entitic vol] 10.0 fL 6.2-12.0 [facility] Determination of erythrocyte mean corpuscular volume (MCV)Ordered By: Michael Snowden on 11-27-2022 MCV (RBC) [Entitic vol] 100.0 fL 81-99 [facility] Hematocrit Auto (Bld) [Volum e fraction]Ordered By: Michael Sp on 11-27-2022 Hematocrit (Bld) [Volume fraction] 37.8 % 37-47 [facility] Laboratory - Chemistry and C hemistry - challengeOrdered By: Michael Sp on 11-27-2022 ALP [Catalytic activity/Vol] 68 U/L 45-117 [facility] ALT [Catalytic activity/Vol] 22 U/L 13-56 [facility] CO2 [Moles/Vol] 28.0 mmol/L 21.0-32.0 [facility] Globulin (S) [Mass/Vol] 4.1 g/dL 2.2-4.2 [facility] Urea nitrogen/Creatinine [Mass ratio] 21.3 mg/mg 10-20 [facility] Laboratory - Hematology and Cell countsOrdered By: Michael Snowden on 11-27-2022 Erythrocyte distribution width (RBC) [Entitic vol] 47.8 fL 35.1-43.[address] [facility] Erythrocyte distribution width (RBC) [Ratio] 13.1 % 11.6-14.6 [facility] Immature granulocytes/100 WBC (Bld) 0.400 % 0.0-0.9 [facility] Comment on above: IG% - Immature Granu locytes (promyelocytes, myelocytes and metamyelocytes) > 1% indicates that a LEFT SHIFT is Present. MCH (RBC) [Entitic mass] 31.5 pg 27.0-32.0 [facility] Nucleated RBC/100 WBC (Bld) [Ratio] 0 % 0-5 [facility] MCHC Auto (RBC) [Mass/Vol]Or dered By: Michael Snowden on 11-27-2022 MCHC (RBC) [Mass/Vol] 31.5 g/dL 32-36 [facility] No Panel InformationOrdered By: Michael Snowden on 11-27-2022 Estimated GFR (MDRD) Amer 112 mL/min >60 [facility] Comment on above: GFR Calc Estimated GFR (MDRD) Non-Af Amer 93 mL/min >60 [facility] Comment on above: Non- GFR Calc Thyroid Stimulating Hormone (TSH) 0.84 uIU/mL 0.358-3.74 [facility] Vitamin D 25-Hydroxy 87.7 ng/mL [facility] Comment on above: Vitamin D 25(OH) Sta tus Range Deficiency <20 ng/mL (50nmol/L) Insufficiency 20 - 30 ng/mL (50 - 75 nmol/L) Sufficiency 30 - 100 ng/mL (75 - 250 nmol/L) Toxicity >100 ng/mL (>250 nmol/L) Platelets bldOrdered By: Michael Snowden on 11-27-2022 Platelets (Bld) [#/Vol] 214 10*3/uL 150-450 [facility] Serum or plasma albumin gianluca urement (mass/volume)Ordered By: Michael Snowden on 11-27-2022 Albumin [Mass/Vol] 3.3 g/dL 3.2-5.[address] [facility] Serum or plasma albumin/glob ulin mass ratioOrdered By: Michael Snowden on 11-27-2022 Albumin/Globulin [Mass ratio] 0.8 {ratio} 0.9-2.4 [facility] Serum or plasma calcium gianluca urement (mass/volume)Ordered By: Michael Snowden on 11-27-2022 Calcium [Mass/Vol] 9.2 mg/dL 8.5-10.[address] [facility] Serum or plasma cholesterol in HDL measurement (mass/volume)Ordered By: Michael Snowden on 11-27-2022 Cholesterol in HDL [Mass/Vol] 66 mg/dL >40 [facility] Comment on above: The drugs N-Acetylcy steine and Metamizole may falsely depress this assay. Reference Range HDL <40 mg/dL Low HDL Cholesterol HDL >or= 60 mg/dL High HDL Cholesterol Serum or plasma cholesterol in VLDL measurement (mass/volume)Ordered By: Michael Snowden on 11-27-2022 Cholesterol in VLDL [Mass/Vol] 11 mg/dL 5-40 [facility] Serum or plasma creatinine m easurement (mass/volume)Ordered By: Michael Snowden on 11-27-2022 Creatinine [Mass/Vol] 0.66 mg/dL 0.55-1.02 [facility] Comment on above: The validity of the calculated GFR & GFRAA in patients over 70 years has not been determined. Clinical correlation is essential. Serum or plasma low density lipoprotein (LDL) cholesterol measurement (mass/volume)Ordered By: Michael Snowden on 11-27-2022 Cholesterol in LDL [Mass/Vol] 92 mg/dL 0-130 [facility] Serum or plasma urea nitroge n measurement (mass/volume)Ordered By: Michael Snowden on 11-27-2022 Urea nitrogen [Mass/Vol] 14 mg/dL 7-18 [facility] Thin prep Papanicolaou smear with manual screeningOrdered By: Michael Snowden on 11-27-2022 Thin prep Papanicolaou smear with manual screening 21 U/L 15-37 [facility] Thin prep Papanicolaou smear with manual screening 5 5-15 [facility] No Panel InformationOrdered By: Sae Brandt on 08-05-2022 Stool Calprotectin 32 ug/g 0-[address] [facility] Comment on above: Concentration Interp retation Follow-Up<16 - 50 ug/g Normal None>50 -120 ug/g Borderline Re-evaluate in 4-6 weeks >120 ug/g Abnormal Repeat as clinically indicatedPerformed at: [facility] [address] [id number] Director: Alaina Alex MD, Phone: [phone] Stool Pancreatic Elastase 202 >200 [facility] Comment on above: Result Units: ug [address] st./g Severe Pancreatic Insufficiency: <100 Moderate Pancreatic Insufficiency: 100 - 200 Normal: >200Performed at: [address] [id number] Director: Alaina Alex MD, Phone: [phone] Stool lactoferrin detection by immunoassayOrdered By: Sae Brandt on 08-05-2022 Lactoferrin IA Ql (Stl) [facility] Lactoferrin IA Ql (Stl) [facility] Absolute lymphocyte countOrd ered By: Sae Brandt on 06-07-2022 Lymphocytes Auto (Unsp spec) [#/Vol] 1.34 10*3/uL 0.83-4.51 [facility] Atypical perinuclear antineu trophil cytoplasmic antibodies measurementOrdered By: Sae Brandt on 06-07-2022 Neutrophil cytoplasmic Ab.perinuclear.atypical IF (S) [Titer] <1:20 titer Neg:<1:20 [facility] Comment on above: The atypical pANCA p attern has been observed in asignificant percentage of patients with ulcerative colitis,primary sclerosing cholangitis and autoimmune hepatitis.Performed at: [facility] [address] [id number] Director: Olivier Jenkins PhD, Phone: [phone] at: [address] [id number] Director: Alaina Alex MD, Phone: [phone] Basophil percentageOrdered B y: Sae Brandt on 06-07-2022 Basophil percentage < 0.2 AI 0.0-0.9 [facility] Basophils/100 WBC (Bld) 0.9 % 0-1 [facility] Bilirubin [Mass/Vol] 0.40 mg/dL 0.20-1.00 [facility] Comment on above: For patients on eltr ombopag therapy, use of [place] TBIL is not recommended. Chloride [Moles/Vol] 103 mmol/L 98-107 [facility] Eosinophils/100 WBC (Bld) 2.3 % 0-5 [facility] Glucose [Mass/Vol] 85 mg/dL 74-[address] [facility] LDH [Catalytic activity/Vol] 226 U/L 84-246 [facility] Neutrophils (Bld) [#/Vol] 4.5 10*3/uL 2.0-7.7 [facility] Neutrophils/100 WBC (Bld) 67.7 % 47-70 [facility] Potassium [Moles/Vol] 3.6 mmol/L 3.5-5.1 [facility] Protein [Mass/Vol] 7.6 g/dL 6.4-8.[address] [facility] Sodium [Moles/Vol] 140 mmol/L 136-[address] [facility] WBC (Bld) [#/Vol] 6.6 10*3/uL 4.4-11.[address] [facility] Blood erythrocytes count (nu mber/volume)Ordered By: Sae Brandt on 06-07-2022 RBC (Bld) [#/Vol] 4.03 10*6/uL 4.2-5.4 [facility] Blood hemoglobin measurement (mass/volume)Ordered By: Sae Brandt on 06-07-2022 Hemoglobin (Bld) [Mass/Vol] 13.0 g/dL 12.0-15. 0 [facility] Blood lymphocytes/100 leukoc ytesOrdered By: Sae Brandt on 06-07-2022 Lymphocytes/100 WBC (Bld) 20.2 % 19-41 [facility] Blood monocytes/100 leukocyt esOrdered By: Sae Brandt on 06-07-2022 Monocytes/100 WBC (Bld) 8.6 % 0-10 [facility] Blood platelet mean volumeOr dered By: Sae Brandt on 06-07-2022 Platelet mean volume (Bld) [Entitic vol] 9.5 fL 6.2-12.0 [facility] Determination of erythrocyte mean corpuscular volume (MCV)Ordered By: Sae Brandt on 06-07-2022 MCV (RBC) [Entitic vol] 99.5 fL 81-99 [facility] Erythrocyte sedimentation ra teOrdered By: Sae Brandt on 06-07-2022 ESR (Bld) [Velocity] 30 mm/h 0-[address] [facility] Hematocrit Auto (Bld) [Volum e fraction]Ordered By: Sae Brandt on 06-07-2022 Hematocrit (Bld) [Volume fraction] 40.1 % 37-47 [facility] Interpretation of serum or p lasma protein pattern by immunofixation (narrative resultOrdered By: Sae Brandt on 06-07-2022 Protein Fractions Immunofixation Micheal [Interp] See comment [facility] Comment on above: NOT OBSERVED Laboratory - Chemistry and C hemistry - challengeOrdered By: Sae Brandt on 06-07-2022 ALP [Catalytic activity/Vol] 72 U/L 45-117 [facility] ALT [Catalytic activity/Vol] 25 U/L 13-56 [facility] CO2 [Moles/Vol] 29.0 mmol/L 21.0-32.0 [facility] Urea nitrogen/Creatinine [Mass ratio] 16.9 mg/mg 10-20 [facility] Laboratory - Hematology and Cell countsOrdered By: Sae Brandt on 06-07-2022 Erythrocyte distribution width (RBC) [Entitic vol] 48.0 fL 35.1-43.[address] [facility] Erythrocyte distribution width (RBC) [Ratio] 13.1 % 11.6-14.6 [facility] Immature granulocytes/100 WBC (Bld) 0.300 % 0.0-0.9 [facility] Comment on above: IG% - Immature Granu locytes (promyelocytes, myelocytes and metamyelocytes) > 1% indicates that a LEFT SHIFT is Present. MCH (RBC) [Entitic mass] 32.3 pg 27.0-32.0 [facility] Nucleated RBC/100 WBC (Bld) [Ratio] 0 % 0-5 [facility] MCHC Auto (RBC) [Mass/Vol]Or dered By: Sae Brandt on 06-07-2022 MCHC (RBC) [Mass/Vol] 32.4 g/dL 32-36 [facility] No Panel InformationOrdered By: Sae Brandt on 06-07-2022 Addendum Document Comment . [facility] Comment on above: Protein electrophore sis scan will follow via computer,mail, or crisis manager delivery. Centromere B Antibody 0.3 AI 0.0-0.9 [facility] Endomysial IgA Antibody Negative [facility] Estimated GFR (MDRD) Amer 94 mL/min >60 [facility] Comment on above: GFR Calc Estimated GFR (MDRD) Non-Af Amer 78 mL/min >60 [facility] Comment on above: Non- GFR Calc Immunoglobulin E 25 IU/mL 6-495 [facility] Miscellaneous Test See comment [facility] Comment on above: TEST RESULT LIMITSIB [...] developed and its performance characteristics determined by [facility]. It has not been cleared or approved by the Food and Drug Administration. The FDA has determined that such clearance or approval is not necessary.Atypical pANCA Negative Negative Comments Pattern is not suggestive of Inflammatory Bowel Disease TESTING PERFORMED AT [facility]. ORIGINAL REPORT ON FILE IN LAB CONTAINS ADDITIONAL TEST SITE INFORMATION. [employer]PER Antibody <0.2 AI 0.0-0.9 [facility] Platelets bldOrdered By: Raúl Brandt on 06-07-2022 Platelets (Bld) [#/Vol] 214 10*3/uL 150-450 [facility] Serum DNA double strand anti body assay (units/volume)Ordered By: Sae Brandt on 06-07-2022 DNA double strand Ab Qn (S) 5 [IU]/mL 0-9 [facility] Comment on above: Negative <5 Equivoca l 5 - 9 Positive >9 Serum Jaci-1 antibody assay (u nits/volume)Ordered By: Sae Brandt on 06-07-2022 Jaci-1 extractable nuclear Ab Qn (S) <0.2 AI 0.0-0.9 [facility] Serum Scl-70 extractable nuc lear antibody assay (units/volume)Ordered By: Sae Brandt on 06-07-2022 SCL-70 extractable nuclear Ab Qn (S) <0.2 AI 0.0-0.9 [facility] Serum Espinosa extractable nucl ear antibody detectionOrdered By: Sae Brandt on 06-07-2022 Espinosa extractable nuclear Ab Ql (S) <0.2 AI 0.0-0.9 [facility] Serum [id number] measu rement by electrophoresisOrdered By: Sae Brandt on 06-07-2022 Alpha 1 globulin Elph [Mass/Vol] 0.3 g/dL 0.0-0.4 [facility] Alpha 1 globulin Elph [Mass/Vol] 0.7 g/dL 0.4-1.0 [facility] Serum classic neutrophil cyt oplasmic antibody assay (units/volume)Ordered By: Sae Brandt on 06-07-2022 Neutrophil cytoplasmic Ab.classic Qn (S) <1:20 titer Neg:<1:20 [facility] Serum globulin measurement ( mass/volume)Ordered By: Sae Brandt on 06-07-2022 Globulin (S) [Mass/Vol] 3.6 g/dL 2.2-3.9 [facility] Serum or plasma C reactive p rotein measurement (mass/volume)Ordered By: Sae Brandt on 06-07-2022 CRP [Mass/Vol] mg/L 0.0-3.0 [facility] Comment on above: C-Reactive Protein ( CRP) provides useful information for thediagnosis, therapy and monitoring of inflammatory processesand associated diseases. For the evaluation of Relative Riskfor Cardiovascular Disease, a High Sensitivity CRP (HSCRP)should be ordered. Serum or plasma IgA measurem ent (mass/volume)Ordered By: Sae Brandt on 06-07-2022 IgA [Mass/Vol] 338 mg/dL 64-422 [facility] Serum or plasma IgG measurem ent (mass/volume)Ordered By: Sae Brandt on 06-07-2022 IgG [Mass/Vol] 1428 mg/dL [phone] [facility] Serum or plasma IgM measurem ent (mass/volume)Ordered By: Sae Brandt on 06-07-2022 IgM [Mass/Vol] 92 mg/dL 26-217 [facility] Serum or plasma albumin gianluca urement (mass/volume)Ordered By: Sae Brandt on 06-07-2022 Albumin [Mass/Vol] 3.6 g/dL 2.9-4.[address] [facility] Serum or plasma albumin/glob ulin mass ratioOrdered By: Sae Brandt on 06-07-2022 Albumin/Globulin [Mass ratio] 0.9 {ratio} 0.9-2.4 [facility] Serum or plasma beta globuli n measurement by electrophoresis (mass/volume)Ordered By: Sae Brandt on 06-07-2022 Beta globulin Elph [Mass/Vol] 1.0 g/dL 0.7-1.3 [facility] Serum or plasma calcium gianluca urement (mass/volume)Ordered By: Sae Brandt on 06-07-2022 Calcium [Mass/Vol] 9.5 mg/dL 8.5-10.[address] [facility] Serum or plasma creatinine m easurement (mass/volume)Ordered By: Sae Brandt on 06-07-2022 Creatinine [Mass/Vol] 0.77 mg/dL 0.55-1.02 [facility] Comment on above: The validity of the calculated GFR & GFRAA in patients over 70 years has not been determined. Clinical correlation is essential. Serum or plasma gamma globul in measurement by electrophoresis (mass/volume)Ordered By: Sae Brandt on 06-07-2022 Gamma globulin Elph [Mass/Vol] 1.6 g/dL 0.4-1.8 [facility] Serum or plasma immunoelectr ophoresis interpretation (nominal result)Ordered By: Sae Brandt on 06-07-2022 Interpretation IEP [Interp] Comment . [facility] Comment on above: No monoclonality det ected. Serum or plasma urea nitroge n measurement (mass/volume)Ordered By: Sae Brandt on 06-07-2022 Urea nitrogen [Mass/Vol] 13 mg/dL 7-18 [facility] Serum perinuclear neutrophil cytoplasmic antibody titer by immunofluorescenceOrdered By: Sae Brandt on 06-07-2022 Neutrophil cytoplasmic Ab.perinuclear IF (S) [Titer] <1:20 titer Neg:<1:20 [facility] Comment on above: The presence of posi tive fluorescence exhibiting P-ANCA orC-ANCA patterns alone is not specific for the diagnosis ofWegener's Granulomatosis (WG) or microscopic polyangiitis.Decisions about treatment should not be based solely onANCA IFA results. The [employer] ANCA [employer] Consensusrecommends follow up testing of positive sera with both OR-3 and MPO-ANCA enzyme immunoassays. As many as 5% serumsamples are positive only by EIA. Ref. AM J Clin Lznusy2062;111:507-513. Serum tissue transglutaminas e IgA antibody assay (units/volume)Ordered By: Sae Brandt on 06-07-2022 tTG IgA Qn (S) <2 U/mL 0-3 [facility] Comment on above: Negative 0 - 3 Weak Positive 4 - 10 Positive >10 Tissue Transglutaminase (tTG) has been identified as the endomysial antigen. Studies have demonstr- ated that endomysial IgA antibodies have over 99% specificity for gluten sensitive enteropathy. Thin prep Papanicolaou smear with manual screeningOrdered By: Sae Brandt on 06-07-2022 Thin prep Papanicolaou smear with manual screening 23 U/L 15-37 [facility] Thin prep Papanicolaou smear with manual screening 8 5-15 [facility] Thin prep Papanicolaou smear with manual screening 1.1 0.7-1.7 [facility] Total protein bloodOrdered B y: Sae Brandt on 06-07-2022 Protein [Mass/Vol] 7.2 g/dL 6.0-8.[address] [facility] Absolute lymphocyte countOrd ered By: Dr. Snowden on 03-26-2022 Lymphocytes Auto (Unsp spec) [#/Vol] 1.21 10*3/uL 0.83-4.51 [facility] Basophil percentageOrdered B y: Dr. Snowden on 03-26-2022 Basophils/100 WBC (Bld) 0.5 % 0-1 [facility] Bilirubin [Mass/Vol] 0.40 mg/dL 0.20-1.00 [facility] Comment on above: For patients on eltr ombopag therapy, use of [place] TBIL is not recommended. Chloride [Moles/Vol] 104 mmol/L 98-107 [facility] Cholesterol [Mass/Vol] 176 mg/dL <200 [facility] Comment on above: <200 mg/dL Desirable 200-240 mg/dL Borderline >240 mg/dL High Risk Eosinophils/100 WBC (Bld) 1.9 % 0-5 [facility] Glucose [Mass/Vol] 88 mg/dL 74-[address] [facility] Neutrophils (Bld) [#/Vol] 4.0 10*3/uL 2.0-7.7 [facility] Neutrophils/100 WBC (Bld) 67.6 % 47-70 [facility] Potassium [Moles/Vol] 4.1 mmol/L 3.5-5.1 [facility] Protein [Mass/Vol] 7.0 g/dL 6.4-8.[address] [facility] Sodium [Moles/Vol] 140 mmol/L 136-[address] [facility] Triglyceride [Mass/Vol] 113 mg/dL <199 [facility] Comment on above: The drugs N-Acetylcy steine and Metamizole may falsely depress this assay.Serum Triglycerides Reference Interval Normal <150 mg/dL Borderline high 150 - 199 mg/dL High 200 - 499 mg/dL Very High > or = 500 mg/dL WBC (Bld) [#/Vol] 5.9 10*3/uL 4.4-11.[address] [facility] Blood erythrocytes count (nu mber/volume)Ordered By: Dr. Snowden on 03-26-2022 RBC (Bld) [#/Vol] 4.01 10*6/uL 4.2-5.4 [facility] Blood hemoglobin measurement (mass/volume)Ordered By: Dr. Snowden on 03-26-2022 Hemoglobin (Bld) [Mass/Vol] 12.6 g/dL 12.0-15. 0 [facility] Blood lymphocytes/100 leukoc ytesOrdered By: Dr. Snowden on 03-26-2022 Lymphocytes/100 WBC (Bld) 20.4 % 19-41 [facility] Blood monocytes/100 leukocyt esOrdered By: Dr. Snowden on 03-26-2022 Monocytes/100 WBC (Bld) 9.3 % 0-10 [facility] Blood platelet mean volumeOr dered By: Dr. Snowden on 03-26-2022 Platelet mean volume (Bld) [Entitic vol] 10.1 fL 6.2-12.0 [facility] Determination of erythrocyte mean corpuscular volume (MCV)Ordered By: Dr. Snowden on 03-26-2022 MCV (RBC) [Entitic vol] 99.0 fL 81-99 [facility] Hematocrit Auto (Bld) [Volum e fraction]Ordered By: Dr. Snowden on 03-26-2022 Hematocrit (Bld) [Volume fraction] 39.7 % 37-47 [facility] Laboratory - Chemistry and C hemistry - challengeOrdered By: Dr. Snowden on 03-26-2022 ALP [Catalytic activity/Vol] 64 U/L 45-117 [facility] ALT [Catalytic activity/Vol] 23 U/L 13-56 [facility] CO2 [Moles/Vol] 28.0 mmol/L 21.0-32.0 [facility] Globulin (S) [Mass/Vol] 3.6 g/dL 2.2-4.2 [facility] Urea nitrogen/Creatinine [Mass ratio] 18.9 mg/mg 10-20 [facility] Laboratory - Hematology and Cell countsOrdered By: Dr. Snowden on 03-26-2022 Erythrocyte distribution width (RBC) [Entitic vol] 47.1 fL 35.1-43.[address] [facility] Erythrocyte distribution width (RBC) [Ratio] 13.1 % 11.6-14.6 [facility] Immature granulocytes/100 WBC (Bld) 0.300 % 0.0-0.9 [facility] Comment on above: IG% - Immature Granu locytes (promyelocytes, myelocytes and metamyelocytes) > 1% indicates that a LEFT SHIFT is Present. MCH (RBC) [Entitic mass] 31.4 pg 27.0-32.0 [facility] Nucleated RBC/100 WBC (Bld) [Ratio] 0 % 0[facility]5 [facility] [Mass/Vol]Or dered By: Dr. Snowden on 03-26-2022 MCHC (RBC) [Mass/Vol] 31.7 g/dL 32-36 [facility] No Panel InformationOrdered By: Dr. Snowden on 03-26-2022 Estimated GFR (MDRD) Amer 98 mL/min >60 [facility] Comment on above: GFR Calc Estimated GFR (MDRD) Non-Af Amer 81 mL/min >60 [facility] Comment on above: Non- GFR Calc Thyroid Stimulating Hormone (TSH) 0.92 uIU/mL 0.358-3.74 [facility] Vitamin D 25-Hydroxy 78.9 ng/mL [facility] Comment on above: Vitamin D 25(OH) Sta tus Range Deficiency <20 ng/mL (50nmol/L) Insufficiency 20 - 30 ng/mL (50 - 75 nmol/L) Sufficiency 30 - 100 ng/mL (75 - 250 nmol/L) Toxicity >100 ng/mL (>250 nmol/L) Platelets bldOrdered By: Dr. Snowden on 03-26-2022 Platelets (Bld) [#/Vol] 221 10*3/uL 150-450 [facility] Serum or plasma albumin gianluca urement (mass/volume)Ordered By: Dr. Snowden on 03-26-2022 Albumin [Mass/Vol] 3.4 g/dL 3.2-5.[address] [facility] Serum or plasma albumin/glob ulin mass ratioOrdered By: Dr. Snowden on 03-26-2022 Albumin/Globulin [Mass ratio] 0.9 {ratio} 0.9-2.4 [facility] Serum or plasma calcium gianluca urement (mass/volume)Ordered By: Dr. Snowden on 03-26-2022 Calcium [Mass/Vol] 8.8 mg/dL 8.5-10.[address] [facility] Serum or plasma cholesterol in HDL measurement (mass/volume)Ordered By: Dr. Snowden on 03-26-2022 Cholesterol in HDL [Mass/Vol] 60 mg/dL >40 [facility] Comment on above: The drugs N-Acetylcy steine and Metamizole may falsely depress this assay. Reference Range HDL <40 mg/dL Low HDL Cholesterol HDL >or= 60 mg/dL High HDL Cholesterol Serum or plasma cholesterol in VLDL measurement (mass/volume)Ordered By: Dr. Snowden on 03-26-2022 Cholesterol in VLDL [Mass/Vol] 23 mg/dL 5-40 [facility] Serum or plasma creatinine m easurement (mass/volume)Ordered By: Dr. Snowden on 03-26-2022 Creatinine [Mass/Vol] 0.74 mg/dL 0.55-1.02 [facility] Comment on above: The validity of the calculated GFR & GFRAA in patients over 70 years has not been determined. Clinical correlation is essential. Serum or plasma low density lipoprotein (LDL) cholesterol measurement (mass/volume)Ordered By: Dr. Snowden on 03-26-2022 Cholesterol in LDL [Mass/Vol] 93 mg/dL 0-130 [facility] Serum or plasma urea nitroge n measurement (mass/volume)Ordered By: Dr. Snowden on 03-26-2022 Urea nitrogen [Mass/Vol] 14 mg/dL 7-18 [facility] Thin prep Papanicolaou smear with manual screeningOrdered By: Dr. Snowden on 03-26-2022 Thin prep Papanicolaou smear with manual screening 18 U/L 15-37 [facility] Thin prep Papanicolaou smear with manual screening 8 5-15 [facility] Absolute lymphocyte counton 09-25-2021 Lymphocytes Auto (Unsp spec) [#/Vol] 1.32 10*3/uL 0.83-4.51 [facility] Work Phone: Basophil percentageon 2021 Basophils/100 WBC (Bld) 0.6 % 0-1 [facility] Work Phone: Bilirubin [Mass/Vol] 0.40 mg/dL 0.20-1.00 [facility] Work Phone: Comment on above: For patients on eltr ombopag therapy, use of [place] TBIL is not recommended. Chloride [Moles/Vol] 106 mmol/L 98-107 [facility] Work Phone: [phone] Cholesterol [Mass/Vol] 170 mg/dL <200 [facility] Work Phone: [phone] Comment on above: <200 mg/dL Desirable 200-240 mg/dL Borderline >240 mg/dL High Risk Eosinophils/100 WBC (Bld) 2.4 % 0-5 [facility] Work Phone: [phone] Glucose [Mass/Vol] 96 mg/dL 74-[address] [facility] Work Phone: [phone] Neutrophils (Bld) [#/Vol] 4.8 10*3/uL 2.0-7.7 [facility] Work Phone: [phone] Neutrophils/100 WBC (Bld) 68.8 % 47-70 [facility] Work Phone: [phone] Potassium [Moles/Vol] 3.9 mmol/L 3.5-5.1 [facility] Work Phone: [phone] Protein [Mass/Vol] 7.2 g/dL 6.4-8.[address] [facility] Work Phone: [phone] Sodium [Moles/Vol] 141 mmol/L 136-[address] [facility] Work Phone: [phone] Triglyceride [Mass/Vol] 93 mg/dL <199 [facility] Work Phone: Comment on above: The drugs N-Acetylcy steine and Metamizole may falsely depress this assay.Serum Triglycerides Reference Interval Normal <150 mg/dL Borderline high 150 - 199 mg/dL High 200 - 499 mg/dL Very High > or = 500 mg/dL WBC (Bld) [#/Vol] 7.0 10*3/uL 4.4-11.[address] [facility] Work Phone: [phone] Blood erythrocytes count (nu mber/volume)on 09-25-2021 RBC (Bld) [#/Vol] 4.05 10*6/uL 4.2-5.4 [facility] Work Phone: [phone] Blood hemoglobin measurement (mass/volume)on 09-25-2021 Hemoglobin (Bld) [Mass/Vol] 12.8 g/dL 12.0-15. 0 [facility] Work Phone: Blood lymphocytes/100 leukoc yteson 09-25-2021 Lymphocytes/100 WBC (Bld) 18.9 % 19-41 [facility] Work Phone: Blood monocytes/100 leukocyt eson 09-25-2021 Monocytes/100 WBC (Bld) 9.0 % 0-10 [facility] Work Phone: Blood platelet mean volumeon 09-25-2021 Platelet mean volume (Bld) [Entitic vol] 10.1 fL 6.2-12.0 [facility] Work Phone: [phone] Determination of erythrocyte mean corpuscular volume (MCV)on 09-25-2021 MCV (RBC) [Entitic vol] 98.3 fL 81-99 [facility] Work Phone: [phone] Hematocrit Auto (Bld) [Volum e fraction]on 09-25-2021 Hematocrit (Bld) [Volume fraction] 39.8 % 37-47 [facility] Work Phone: [phone] Laboratory - Chemistry and C hemistry - challengeon 09-25-2021 ALP [Catalytic activity/Vol] 62 U/L 45-117 [facility] Work Phone: [phone] ALT [Catalytic activity/Vol] 20 U/L 13-56 [facility] Work Phone: [phone] CO2 [Moles/Vol] 29.0 mmol/L 21.0-32.0 [facility] Work Phone: [phone] Globulin (S) [Mass/Vol] 3.7 g/dL 2.2-4.2 [facility] Work Phone: [phone] Urea nitrogen/Creatinine [Mass ratio] 17.0 mg/mg 10-20 [facility] Work Phone: Laboratory - Hematology and Cell countson 09-25-2021 Erythrocyte distribution width (RBC) [Entitic vol] 47.1 fL 35.1-43.9 [facility] Work Phone: Erythrocyte distribution width (RBC) [Ratio] 13.2 % 11.6-14.6 [facility] Work Phone: Immature granulocytes/100 WBC (Bld) 0.300 % 0.0-0.9 [facility] Work Phone: Comment on above: IG% - Immature Granu locytes (promyelocytes, myelocytes and metamyelocytes) > 1% indicates that a LEFT SHIFT is Present. MCH (RBC) [Entitic mass] 31.6 pg 27.0-32.0 [facility] Work Phone: Nucleated RBC/100 WBC (Bld) [Ratio] 0 % 0-5 [facility] Work Phone: MCHC Auto (RBC) [Mass/Vol]on 09-25-2021 MCHC (RBC) [Mass/Vol] 32.2 g/dL 32-36 [facility] Work Phone: No Panel Informationon 09-25 Estimated GFR (MDRD) Amer 95 mL/min >60 [facility] Work Phone: Comment on above: GFR Calc Estimated GFR (MDRD) Non-Af Amer 78 mL/min >60 [facility] Work Phone: Comment on above: Non- GFR Calc Thyroid Stimulating Hormone (TSH) 0.89 uIU/mL 0.358-3.74 [facility] Work Phone: Vitamin D 25-Hydroxy 76.5 ng/mL [facility] Work Phone: Comment on above: Vitamin D 25(OH) Sta tus Range Deficiency <20 ng/mL (50nmol/L) Insufficiency 20 - 30 ng/mL (50 - 75 nmol/L) Sufficiency 30 - 100 ng/mL (75 - 250 nmol/L) Toxicity >100 ng/mL (>250 nmol/L) Platelets bldon 09-25-2021 Platelets (Bld) [#/Vol] 227 10*3/uL 150-450 [facility] Work Phone: Serum or plasma albumin gianluca urement (mass/volume)on 09-25-2021 Albumin [Mass/Vol] 3.5 g/dL 3.2-5.[address] [facility] Work Phone: Serum or plasma albumin/glob ulin mass ratioon 09-25-2021 Albumin/Globulin [Mass ratio] 0.9 {ratio} 0.9-2.4 [facility] Work Phone: Serum or plasma calcium gianluca urement (mass/volume)on 09-25-2021 Calcium [Mass/Vol] 9.2 mg/dL 8.5-10.[address] [facility] Work Phone: Serum or plasma cholesterol in HDL measurement (mass/volume)on 09-25-2021 Cholesterol in HDL [Mass/Vol] 60 mg/dL >40 [facility] Work Phone: Comment on above: The drugs N-Acetylcy steine and Metamizole may falsely depress this assay. Reference Range HDL <40 mg/dL Low HDL Cholesterol HDL >or= 60 mg/dL High HDL Cholesterol Serum or plasma cholesterol in VLDL measurement (mass/volume)on 09-25-2021 Cholesterol in VLDL [Mass/Vol] 19 mg/dL 5-40 [facility] Work Phone: Serum or plasma creatinine m easurement (mass/volume)on 09-25-2021 Creatinine [Mass/Vol] 0.76 mg/dL 0.55-1.02 [facility] Work Phone: Comment on above: The validity of the calculated GFR & GFRAA in patients over 70 years has not been determined. Clinical correlation is essential. Serum or plasma low density lipoprotein (LDL) cholesterol measurement (mass/volume)on 09-25-2021 Cholesterol in LDL [Mass/Vol] 91 mg/dL 0-130 [facility] Work Phone: Serum or plasma urea nitroge n measurement (mass/volume)on 09-25-2021 Urea nitrogen [Mass/Vol] 13 mg/dL 7-18 [facility] Work Phone: Thin prep Papanicolaou smear with manual screeningon 09-25-2021 Thin prep Papanicolaou smear with manual screening 15 U/L 15-37 [facility] Work Phone: Thin prep Papanicolaou smear with manual screening 6 5-15 [facility] Work Phone: Lab Report: Basic Metabolic Profile (BMP)on 12-17-2016 Anion gap 6 mmol/L Invalid Interpretation Code 5-15 [facility] Work Phone: [phone] BUN/Creatinine Ratio 14.8 RATIO Invalid Interpretation Code 10-20 [facility] Work Phone: [phone] Calcium 9.2 mg/dL Invalid Interpretation Code 8.5-10.1 [facility] Work Phone: [phone] Chloride 102 mmol/L Invalid Interpretation Code 98-107 [facility] Work Phone: [phone] CO2 30.0 mmol/L Invalid Interpretation Code 21.0-32.0 [employer] Phone: [phone] Creatinine 0.74 mg/dL Invalid Interpretation Code 0.55-1.02 [facility] Work Phone: [phone] eGFR (non-black) 82 mL/min/{1.73_m2} Invalid Interpretation Code >60 [facility] Work Phone: [phone] eGFR (non-black) 99 mL/min/{1.73_m2} Invalid Interpretation Code >60 [facility] Work Phone: [phone] Glucose 90 mg/dL Invalid Interpretation Code 70-110 [facility] Work Phone: [phone] Potassium 3.9 mmol/L Invalid Interpretation Code 3.5-5.1 [facility] Work Phone: [phone] Sodium 138 mmol/L Invalid Interpretation Code 136-145 [employer] Phone: [phone] Urea nitrogen 11 mg/dL Invalid Interpretation Code 7-18 [employer] Phone: [phone] Office Visiton 12-17-2016 Documentation of current medications (procedure) Done Invalid Interpretation Code [employer] Phone: [phone] Fall risk assessment Yes Invalid Interpretation Code [employer] Phone: [phone] Clinical Lists Update: Prelo cherry sorter 03-10-2017 Left ventricular Ejection fraction 65-70 Invalid Interpretation Code [facility] Work Phone: Office Visiton 06-13-2015 Tobacco use CPHS Never smoker Invalid Interpretation Code [facility] Work Phone: [phone] External Other: Preferred Me thod of Contacton 03-08-2015 Patient's prefered method of contact phone Invalid Interpretation Code [facility] Work Phone: [phone] Office Visit: [facility] 03-08-20 15 Dietary management education, guidance, and counseling (procedure) yes Invalid Interpretation Code [facility] Work Phone: [phone] General cardiovascular disease 10Y risk [#] Grant.D'Agostino 15 % Invalid Interpretation Code [facility] Work Phone: [phone] Clinical Lists Update: Pre cherry sorter 11-12-2014 Magnesium 1.6 mg/dL Low [facility] Work Phone: Office Visiton 08-05-2014 cardiac risk group B Invalid Interpretation Code [facility] Work Phone: [phone] Clinical Lists Update: Pre cherry sorter 05-23-2014 Cholesterol 171 mg/dL Invalid Interpretation Code [facility] Work Phone: [phone] HDL Cholesterol 46 mg/dL Invalid Interpretation Code [facility] Work Phone: [phone] LDL Cholesterol 109 mg/dL Invalid Interpretation Code [facility] Work Phone: [phone] Triglyceride 78 mg/dL Invalid Interpretation Code [facility] Work Phone: [phone] very low density lipoproteins 16 mg/dL Invalid Interpretation Code [facility] Work Phone: [phone] Clinical Lists Update: Pre cherry sorter 05-22-2014 basophils as percent of blood leukocytes, manual count 0.5 % Invalid Interpretation Code [facility] Work Phone: [phone] eosinophils as percent of blood leukocytes, manual count 0.7 % Invalid Interpretation Code [facility] Work Phone: [phone] Erythrocytes (RBC) 4.37 10*6/uL Invalid Interpretation Code [facility] Work Phone: [phone] Hematocrit (HCT) 40.7 % Invalid Interpretation Code [facility] Work Phone: [phone] Hemoglobin (HGB) 13.9 g/dL Invalid Interpretation Code [facility] Work Phone: [phone] Lymphocytes/100 leukocytes 15.7 % Low [facility] Work Phone: [phone] MCH 31.8 pg Invalid Interpretation Code [facility] Work Phone: [phone] MCHC 34.2 g/dL Invalid Interpretation Code [facility] Work Phone: [phone] MCV 93.1 fL Invalid Interpretation Code [facility] Work Phone: [phone] Monocytes/100 leukocytes 6.6 % Invalid Interpretation Code [facility] Work Phone: [phone] neutrophils, band form as percent of blood leukocytes, manual count 76.3 % High [facility] Work Phone: [phone] Platelets 244 10*3/mm3 Invalid Interpretation Code [facility] Work Phone: [phone] RDW-CA 13.0 % Invalid Interpretation Code [facility] Work Phone: [phone] Thyroid stimulating hormone (TSH) 0.88 u[iU]/mL Invalid Interpretation Code [facility] Work Phone: [phone] WBC (Leukocytes) 6.1 10*3/uL Invalid Interpretation Code [facility] Work Phone: [phone] Clinical Lists Update: Prelo cherry sorter 06-23-2012 Albumin 4.0 g/dL Invalid Interpretation Code [facility] Work Phone: [phone] Albumin/Globulin Ratio 1.0 {ratio} Invalid Interpretation Code [facility] Work Phone: [phone] Alkaline phosphatase (ALP) 95 U/L Inval id Interpretation Code [facility] Work Phone: [phone] Aspartate aminotransferase (AST) 24 U/L Invalid Interpretation Code [facility] Work Phone: [phone] Bilirubin (total) 0.20 mg/dL Invalid Interpretation Code [facility] Work Phone: [phone] Globulin 3.9 g/dL Invalid Interpretation Code [facility] Work Phone: [phone] Protein 7.9 g/dL Invalid Interpretation Code [facility] Work Phone: Lab Reporton 06-13-2011 Alanine aminotransferase (ALT) 42 U/L Invalid Interpretation Code [facility] Work Phone: Bilirubin (direct) 0.12 mg/dL Invalid Interpretation Code [facility] Work Phone: Vital Signs Date Time Vital Sign Value Performing Clinician Facility 08-13-2024 07:56-0400 Diastolic blood pressure 103 mm[Hg] Seth Chowdary MD Work Phone: [facility] 08-13-2024 07:56-0400 Heart rate 98 /min Seth Chowdary MD Work Phone: [facility] 08-13-2024 07:56-0400 Systolic blood pressure 148 mm[Hg] Seth Chowdary MD Work Phone: [facility] 08-13-2024 07:52-0400 Body height 147.3 cm Seth Chowdary MD Work Phone: [facility] 08-13-2024 07:52-0400 Body mass index (BMI) [Ratio] 31.33 kg/m2 Seth Chowdary MD Work Phone: [facility] 08-13-2024 07:52-0400 Body weight 68 kg Seth Chowdary MD Work Phone: [facility] 08-13-2024 07:52-0400 Respiratory rate 18 /min Seth Chowdary MD Work Phone: [facility] 07-21-2024 12:56-0400 Body height 147.3 cm Jovanni Matthew MD Work Phone: [facility] 07-21-2024 12:56-0400 Body mass index (BMI) [Ratio] 31.35 kg/m2 Jovanni Matthew MD Work Phone: [facility] 07-21-2024 12:56-0400 Body weight 68.04 kg Jovanni Matthew MD Work Phone: [facility] 07-21-2024 12:56-0400 Diastolic blood pressure 75 mm[Hg] Jovanni Matthew MD Work Phone: [facility] 07-21-2024 12:56-0400 Heart rate 98 /min Jovanni Matthew MD Work Phone: [facility] 07-21-2024 12:56-0400 SaO2% (BldA) [Mass fraction] 96 % Jovanni Matthew MD Work Phone: [facility] 07-21-2024 12:56-0400 Systolic blood pressure 109 mm[Hg] Jovanni Matthew MD Work Phone: [facility] 05-21-2024 08:45-0500 Heart rate 71 /min Dr. Michael Snowden MD Work Phone: [facility] 05-21-2024 08:40-0500 Body temperature 98 [degF] Dr. Michael Snowden MD Work Phone: [facility] 05-21-2024 08:40-0500 Diastolic blood pressure 87 mm[Hg] Dr. Michael Snowden MD Work Phone: [facility] 05-21-2024 08:40-0500 Respiratory rate 17 /min Dr. Michael Snowden MD Work Phone: [facility] 05-21-2024 08:40-0500 SaO2% (BldA) [Mass fraction] 95 % Dr. Michael Snowden MD Work Phone: [facility] 05-21-2024 08:40-0500 Systolic blood pressure 144 mm[Hg] Dr. Michael Snowden MD Work Phone: [facility] 05-18-2024 11:00-0500 Body mass index (BMI) [Ratio] 32.5 kg/m2 Dr. Michael Snowden MD Work Phone: [facility] 05-18-2024 11:00-0500 Body weight 70.[address] Michael Snowden MD Work Phone: [facility] 05-15-2024 05:41-0500 Inhaled oxygen flow rate 97 L/min Dr. Michael Snowden MD Work Phone: 1(912)553-935042 [place] [address] 05-12-2024 13:31-0500 Body height 147.[address] Michael Snowden MD Work Phone: 0(170)727-272263 [place] [address] 04-16-2024 10:20-0500 Heart rate 70 /min Dr. Michael Snowden MD Work Phone: 5(938)942-875463 [place] [address] 04-16-2024 10:10-0500 Body temperature 98.3 [degF] Dr. Michael Snowden MD Work Phone: 0(870)416-807742 [place] [address] 04-16-2024 10:10-0500 Diastolic blood pressure 71 mm[Hg] Dr. Michael Snowden MD Work Phone: 4(681)008-841963 [place] [address] 04-16-2024 10:10-0500 Respiratory rate 18 /min Dr. Michael Snowden MD Work Phone: 9(628)555-658563 [place] [address] 04-16-2024 10:10-0500 SaO2% (BldA) [Mass fraction] 95 % Dr. Michael Snowden MD Work Phone: 6(236)502-317763 [place] [address] 04-16-2024 10:10-0500 Systolic blood pressure 109 mm[Hg] Dr. Michael Snowden MD Work Phone: 4(899)005-372263 [place] [address] 04-15-2024 15:36-0500 Body weight 70.[address] Michael Snowden MD Work Phone: 3(504)074-328463 [place] [address] 04-11-2024 14:41-0500 Body mass index (BMI) [Ratio] 32.5 kg/m2 Dr. Michael Snowden MD Work Phone: 3(584)883-553242 [place] [address] 03-31-2024 00:00-0500 Body temperature 98 [degF] Dr. Michael Snowden MD Work Phone: 6(539)446-969063 [place] [address] 03-31-2024 00:00-0500 Diastolic blood pressure 78 mm[Hg] Dr. Michael Snowden MD Work Phone: 4(964)141-841063 [place] [address] 03-31-2024 00:00-0500 Heart rate 84 /min Dr. Michael Snowden MD Work Phone: [facility] 03-31-2024 00:00-0500 Respiratory rate 16 /min Dr. Michael Snowden MD Work Phone: 0(170)992-924842 [place] [address] 03-31-2024 00:00-0500 SaO2% (BldA) [Mass fraction] 99 % Dr. Michael Snowden MD Work Phone: 2(270)778-294142 [place] [address] 03-31-2024 00:00-0500 Systolic blood pressure 145 mm[Hg] Dr. Michael Snowden MD Work Phone: 5(129)443-789142 [place] [address] 05-09-2023 13:06-0500 Body height 149.[address] Michael Snowden Work Phone: 3(966)596-816563 [place] [address] 05-09-2023 13:06-0500 Body mass index (BMI) [Ratio] 30.9 kg/m2 Dr. Michael Snowden Work Phone: 6(893)088-576063 [place] [address] 05-09-2023 13:06-0500 Body weight 69.[address] Michael Snowden Work Phone: 3(767)746-773799 [address] 05-09-2023 13:06-0500 Diastolic blood pressure 86 mm[Hg] Dr. Michael Snowden Work Phone: 3(053)228-619263 [place] [address] 05-09-2023 13:06-0500 Heart rate 59 /min Dr. Michael Snowden Work Phone: 4(819)260-908963 [place] [address] 05-09-2023 13:06-0500 Respiratory rate 18 /min Dr. Michael Snowden Work Phone: 1(691)774-642042 [place] [address] 05-09-2023 13:06-0500 SaO2% (BldA) [Mass fraction] 95 % Dr. Michael Snowden Work Phone: 8(307)073-470642 [place] [address] 05-09-2023 13:06-0500 Systolic blood pressure 154 mm[Hg] Dr. Michael Snowden Work Phone: 9(955)232-159442 [place] [address] 01-06-2023 14:34-0400 Body height 149.[address] Michael Snowden Work Phone: 0(692)886-160563 [place] [address] 01-06-2023 14:34-0400 Body mass index (BMI) [Ratio] 29.9 kg/m2 Dr. Michael Snowden Work Phone: [facility] 01-06-2023 14:34-0400 Body weight 67.[address] Michael Snowden Work Phone: [facility] 01-06-2023 14:34-0400 Diastolic blood pressure 80 mm[Hg] Dr. Michael Snowden Work Phone: [facility] 01-06-2023 14:34-0400 Heart rate 54 /min Dr. Michael Snowden Work Phone: [facility] 01-06-2023 14:34-0400 Respiratory rate 18 /min Dr. Michael Snowden Work Phone: [facility] 01-06-2023 14:34-0400 SaO2% (BldA) [Mass fraction] 95 % Dr. Michael Snowden Work Phone: [facility] 01-06-2023 14:34-0400 Systolic blood pressure 171 mm[Hg] Dr. Michael Snowden Work Phone: [facility] 01-04-2022 08:47-0400 Body height 149.[address] Michael Snowden Work Phone: [facility] Work Phone: 01-04-2022 08:47-0400 Body mass index (BMI) [Ratio] 31.3 kg/m2 Dr. Michael Snowden Work Phone: [facility] Work Phone: 01-04-2022 08:47-0400 Body weight 70.[address] Michael Snowden Work Phone: [facility] Work Phone: 01-04-2022 08:47-0400 Heart rate 52 /min Dr. Michael Snowden Work Phone: [facility] Work Phone: 01-04-2022 08:47-0400 Respiratory rate 16 /min Dr. Michael Snowden Work Phone: [facility] Work Phone: 01-04-2022 08:47-0400 SaO2% (BldA) [Mass fraction] 98 % Dr. Michael Snowden Work Phone: [facility] Work Phone: 12-17-2016 13:13-0400 BMI (Body Mass [...] 03-19-2006 10:28-0500 Body weight 93.9 kg Day Pacheoc RN [facility]; [facility] [...] Type Care Provider Facility Start: 08-31-2024 ambulatory [facility] Facility:[facility] Start: 08-25-2024 End: 08-25-2024 ambulatory Ajay Grant MD Work Phone: Endocrinology Comment on above: Medication denial Start: 08-25-2024 End: 08-25-2024 E-mail encounter from caregiver Ajay Grant MD Work Phone: Endocrinology Start: 08-24-2024 ambulatory Michael Snowden Facility:[facility] Start: 08-24-2024 Nikia Cabezas Start: 08-22-2024 End: 08-22-2024 Telephone encounter Ajay Grant MD Work Phone: Endocrinology & [facility] [place] Comment on above: Medication Preauthor ization (Evenity 210mg- Denied) Start: 08-17-2024 Nikia Cabezas Start: 08-16-2024 End: 08-17-2024 ambulatory Ajay Grant MD Work Phone: Endocrinology Comment on above: Medication update Start: 08-16-2024 End: 08-16-2024 E-mail encounter from caregiver Ajay Grant MD Work Phone: Endocrinology Start: 08-13-2024 End: 08-13-2024 Patient encounter procedure Seth Chowdary MD Work Phone: [facility] [place] Comment on above: Acquired spondylolis thesis (Primary Dx); Cervical spondylosis without myelopathy; Neural foraminal stenosis of lumbar spine; Closed compression fracture of body of L1 vertebra (HCC) Start: 08-13-2024 End: 08-13-2024 ambulatory SETH CHOWDARY Facility:[facility] Start: 08-10-2024 End: 08-10-[address] Michael Snowden MD Work Phone: [facility] Work Phone: Start: 08-10-2024 End: 08-10-2024 Nikia Cabezas Start: 08-10-2024 End: 08-10-2024 ambulatory Nikia JAVIER Facility:[facility] Start: 08-03-2024 Audra Cabezas Start: 08-03-2024 End: 08-03-2024 ambulatory Michael Snowden Facility:[facility] Start: 07-27-2024 End: 07-27-2024 Audra MANUEL -ANTHONY Cabezas Start: 07-27-2024 End: 07-27-2024 ambulatory Michael Snowden Facility:[facility] Start: 07-21-2024 End: 07-21-2024 ambulatory MILLIE PETTY Facility:[facility] Start: 07-21-2024 End: 07-21-2024 ambulatory AJAY EDY LYNN Facility:[facility] Start: 07-21-2024 End: 07-21-2024 Patient encounter procedure Jovanni Matthew MD Work Phone: Rehab Medicine Comment on above: Osteopenia, unspecif ied location (Primary Dx); History of vertebral compression fracture; Spondylolisthesis, grade 3 Start: 07-21-2024 End: 07-21-2024 ambulatory JOVANNI MATTHEW Facility:[facility] Start: 07-20-2024 End: 07-20-[address] Michael Snowden MD Work Phone: [facility] Work Phone: Start: 07-20-2024 End: 07-20-2024 Nikia Cabezas Start: 07-20-2024 End: 07-20-2024 ambulatory Nikia JAVIER Facility:[facility] Start: 07-13-2024 End: 07-13-[address] Michael Snowden MD Work Phone: [facility] Work Phone: Start: 07-13-2024 End: 07-13-2024 Nikia Cabezas Start: 07-13-2024 End: 07-13-2024 ambulatory Nikia JAVIER Facility:[facility] Start: 07-06-2024 Registered Referred Nikia Cabezas Start: 07-06-2024 End: 07-06-2024 Nikia Cabezas Start: 07-06-2024 End: 07-06-2024 ambulatory Nikia JAVIER Facility:[facility] Start: 06-29-2024 Registered Referred Audra izaguirre LATHMAKER-C -[facility] Start: 06-29-2024 End: 06-29-2024 Audra Drake NP-C -[facility] [place] Start: 06-29-2024 End: 06-29-2024 ambulatory Michael Chi Sp Facility:[facility] Start: 06-23-2024 End: 06-23-2024 ambulatory Michael Chi Sp [place] Start: 06-23-2024 End: 06-23-2024 Audra Drake NP-C -[facility] Work Phone: Start: 06-22-2024 End: 06-22-[address] Michael Snowden MD Work Phone: [facility] Work Phone: Start: 06-22-2024 Registered Referred Audra izaguirre NP-C -[facility] [place] Start: 06-22-2024 End: 06-22-2024 Audra Drake NP-C -[facility] [place] Start: 06-22-2024 End: 06-22-2024 ambulatory Michael Chi Sp Facility:[facility] Start: 06-15-2024 End: 06-15-[address] Michael Snowden MD Work Phone: [facility] Work Phone: Start: 06-15-2024 End: 06-15-2024 Departed Referred Nikia Cabezas Start: 06-15-2024 Registered Referred Nikia Cabezas Start: 06-15-2024 End: 06-15-2024 Nikia Cabezas Start: 06-15-2024 End: 06-15-2024 ambulatory Nikia JAVIER Facility:[facility] Start: 06-08-2024 End: 06-08-2024 Departed Referred Nikia Cabezas Start: 06-08-2024 Registered Referred Nikia Cabezas Start: 06-08-2024 End: 06-08-2024 Nikia Cabezas Start: 06-08-2024 End: 06-08-2024 ambulatory Nikia Henderson OLS Facility:[facility] Start: 06-01-2024 End: 06-01-[address] Michael Snowden MD Work Phone: [facility] Work Phone: Start: 06-01-2024 End: 06-01-2024 Departed Referred Nikia Cabezas Start: 06-01-2024 End: 06-01-2024 Nikia Cabezas Start: 06-01-2024 End: 06-01-2024 ambulatory Nikia Jainromi JAVIER Facility:[facility] Start: 05-25-2024 End: 05-25-2024 ambulatory Michael Snowden Facility:[facility] Start: 05-25-2024 End: 05-25-[address] Nikia Henderson MD -[facility] Work Phone: Start: 05-25-2024 End: 05-25-2024 Dr. Nikia Henderson MD -[facility] Work Phone: Start: 05-21-2024 End: 05-21-2024 ambulatory Audra Drake LATHMAKER Facility:[facility] Start: 05-21-2024 End: 05-21-2024 Patient encounter procedure Audra Drake LATHMAKER-C -[facility] Work Phone: Start: 05-21-2024 End: 05-21-2024 Audra Drake LATHMAKER-C -[facility] Work Phone: Start: 04-16-2024 End: 05-21-2024 Dr. Michael Snowden MD -Transitional Care Unit Start: 04-16-2024 End: 05-21-2024 Evaluation and management of inpatient Dr. Michael Snowden MD -Transitional Care Unit Start: 04-16-2024 Non-patient / Non-visit Dr. Minerva Hernandez MD -[facility] Work Phone: Start: 04-16-2024 Dr. Gabo Hernandez MD -[facility] Work Phone: Start: 04-15-2024 Non-patient / Non-visit Dr. Minerva Hernandez MD -[facility] Work Phone: Start: 04-15-2024 Dr. Gabo Hernandez MD -[facility] Work Phone: Start: 04-14-2024 ambulatory Gabo Hernandez Facility:[facility] Start: 04-14-2024 End: 04-16-2024 Evaluation and management of inpatient Dr. Gabo Hernandez MD -[facility] Work Phone: Start: 04-14-2024 End: 04-16-2024 Dr. Gabo Hernandez MD -[facility] 3 Work Phone: Start: 04-14-2024 Non-patient / Non-visit Dr. Minerva Hernandez MD -[facility] Work Phone: Start: 04-14-2024 Dr. Gabo Hernandez MD -[facility] Work Phone: Start: 04-14-2024 End: 04-14-2024 ambulatory Indu Pacheco Facility:[facility] Start: 04-14-2024 End: 04-14-2024 Non-patient / Non-visit Dr. Indu Pacheco MD -[facility] Work Phone: Start: 04-14-2024 End: 04-14-2024 [facility] Start: 04-13-2024 Non-patient / Non-visit Dr. Minerva Hernandez MD [facility] Work Phone: Start: 04-13-2024 Dr. Gabo Hernandez MD -[facility] Work Phone: Start: 04-12-2024 Non-patient / Non-visit Dr. Gaby Watkins MD -[facility] Work Phone: Start: 04-12-2024 Dr. Lesli mccoy MD -[facility] Work Phone: Start: 04-11-2024 ambulatory Lesli Watkins [facility] Start: 04-11-2024 Non-patient / Non-visit Dr. Gaby Watkins MD -[facility] Work Phone: Start: 04-11-2024 Dr. Lesli mccoy MD -[facility] Work Phone: Start: 03-30-2024 End: 03-31-2024 Dr. Floridalma Bingham DO -Emergency Department Work Phone: Start: 03-30-2024 End: 03-31-2024 Emergency department patient visit Dr. Floridalma Bingham DO -Emergency Department Work Phone: Start: 03-25-2024 End: 03-25-2024 ambulatory Michael Chi Sp Facility:[facility] Start: 03-25-2024 End: 03-25-[address] Michael Snowden MD -Physical Therapy Work Phone: Start: 03-25-2024 End: 03-25-2024 Dr. Michael Snowden MD -Physical Therapy Work Phone: Start: 02-25-2024 End: 02-25-2024 Emergency department patient visit Michael Chi Sp Facility:[facility] Start: 02-23-2024 End: 02-23-2024 ambulatory Michael Chi Sp Facility:[facility] Start: 01-08-2024 End: 01-08-2024 ambulatory Michael Chi Sp Facility:[facility] Start: 12-15-2023 End: 12-15-2023 ambulatory Michael Chi Sp Facility:[facility] Start: 11-13-2023 End: 11-13-2023 ambulatory Michael Chi Sp Facility:[facility] Start: 11-10-2023 End: 11-10-2023 ambulatory Michael Chi Sp Facility:[facility] Start: 10-29-2023 ambulatory Michael Chi Sp [facility] Start: 10-29-2023 End: 10-29-2023 ambulatory Michael Chi Sp Facility:[facility] Start: 10-08-2023 ambulatory Yasmin Pooled Facility:[facility] Start: 10-08-2023 End: 10-08-2023 ambulatory Michael Chi Sp Facility:[facility] Start: 09-30-2023 End: 09-30-2023 ambulatory Michael Chi Sp Facility:[facility] Start: 09-22-2023 End: 09-22-2023 ambulatory Gaetano Cleary Facility:[facility] Start: 09-09-2023 End: 09-09-2023 ambulatory Michael Chi Sp Facility:[facility] Start: 06-20-[address] Michael guillen Work Phone: [facility]-Physical Therapy Work Phone: Start: 06-19-2023 Non-patient / Non-visit Dr. Augusto Snowden Work Phone: [facility] Start: 06-19-2023 End: 06-19-[address] Michael Snowden Work Phone: [facility] Work Phone: Start: 06-19-2023 End: 06-19-[address] Michael Snowden Work Phone: [facility]-Cardiovascular Services Work Phone: Start: 05-30-[address] Michael guillen Work Phone: [facility]-Physical Therapy Work Phone: Start: 05-28-2023 End: 05-28-[address] Michael Snowden Work Phone: [facility] Work Phone: Start: 05-28-2023 End: 05-28-[address] [facility] Start: 05-09-2023 End: 05-09-[address] Michael Snowden Work Phone: [facility] Work Phone: Start: 05-09-2023 End: 05-09-[address] Michael Snowden Work Phone: [facility] Work Phone: Start: 04-28-2023 End: 04-28-[address] Michael Snowden Work Phone: [facility] Work Phone: Start: 04-28-2023 End: 04-28-[address] [facility] Start: 02-24-2023 End: 02-24-[address] Michael Snowden Work Phone: [facility] Work Phone: Start: 01-06-2023 End: 01-06-[address] Michael Snowden Work Phone: [facility] Work Phone: Start: 11-28-[address] [facility] guillen [facility]: Start: 11-27-2022 End: 11-27-[address] Michael Snowden Work Phone: [facility] Work Phone: Start: 11-27-2022 End: 11-27-[address] [facility] Snowden [facility] Start: 11-05-2022 End: 11-05-[address] Michael Snowden Work Phone: [facility] Work Phone: Start: 11-05-2022 End: 11-05-[address] Michael Snowden Work Phone: [facility]-Physical Therapy Work Phone: Start: 09-25-2022 End: 09-25-[address] Michael Snowden Work Phone: [facility] Work Phone: Start: 08-08-[address] Michael guillen Work Phone: [facility]-Physical Therapy Start: 08-05-2022 End: 08-05-[address] Michael Snowden Work Phone: [facility] Work Phone: Start: 08-05-2022 End: 08-05-[address] Michael Snowden Work Phone: [facility]-Laboratory, Specimen Start: 07-16-[address] Michael guillen Work Phone: [facility]-Physical Therapy Start: 07-16-2022 End: 07-16-[address] Michael Snowden Work Phone: [facility] Work Phone: Start: 07-16-2022 End: 07-16-[address] Michael Snowden Work Phone: [facility]-Ultrasound, [facility] Start: 06-10-[address] Michael guillen Work Phone: [facility]-Physical Therapy Start: 06-07-2022 End: 06-07-[address] Michael Snowden Work Phone: [facility] Work Phone: Start: 06-07-2022 End: 06-07-[address] Michael Snowden Work Phone: [facility] Start: 03-26-2022 End: 03-26-[address] Michael Snowden Work Phone: [facility] Work Phone: Start: 03-26-2022 End: 03-26-[address] Michael Snowden Work Phone: [facility], y Office 3rd Flr Start: 02-15-[address] [facility] Start: 01-07-[address] [facility]illen [facility] Start: 01-04-2022 End: 01-04-[address] Michael Snowden Work Phone: [facility] Start: 12-24-2021 End: 12-24-[address] Michael Snowden Work Phone: [facility] Work Phone: Start: 12-24-2021 End: 12-24-[address] [facility] Snowden [facility] Start: 09-25-2021 End: 09-25-2021 Patient encounter procedure [facility] Flr Start: 09-24-2021 [facility]istered [facility] Start: 03-19-2006 End: 03-19-2006 Patient [...] Michael Snowden MD Work Phone: Start: 07-13-2024 Nucleated [...] Start: 06-15-2024 Platelet mean volume determination Dr. Mihcael Snowden MD Work Phone: Start: 06-08-2024 Blood [...] Bret Daniels MD Start: 06-11-2016 End: 06-11-2016 PLASTIC TILE SETTER Ashley Ernst PA-C Work Phone: Start: 06-11-2016 [...] 03-08-2015 Follow Up Appt 3 months Ashley waterman PA-C Work Phone: Start: 08-05-2014 End: 08-06-2014 Documentation of current medications Bret Daniels MD Start: 08-05-2014 End: 08-05-2014 Follow Up Appt 6 months Cole Salazar Start: 08-05-2014 End: 08-05-2014 KODAK Daniels MD Start: 02-10-2014 End: 02-10-2014 ZULEYKA Ernst PA-C Work Phone: Start: 02-10-2014 End: [...] DTaP,Tdap,Td Vaccine (3 - Td or Tdap) [facility] Start: 07-22-2027 Diabetes Screening Diabetes Screenin g [facility] Start: 07-21-2025 BP Controlled (<130/80) BP Con trolled (<130/80) [facility] Start: 11-29-2024 Influenza vaccination Influenz a Vaccine (Season Ended) [facility] Start: 10-20-2024 End: 10-20-2024 Patient encounter procedure 10/20/2024 12:40 PM EDT Office Visit Endocrinology [address] [place] [address] Kimmie Lindsey MD [address] [id number] 3 month follow up Endocrinology Comment on above: 3 month follow up Start: 05-21-2024 Patient discharge [facility] Start: 05-20-2024 Development of care plan [facility] Start: 05-17-2024 Consultation for pain [facility] Start: 05-13-2024 Developing a treatme nt plan [facility] Start: 05-13-2024 Development of care plan [facility] Start: 05-07-2024 [facility] Start: 04-17-2024 Developing a treatme nt plan [facility] Start: 04-17-2024 Development of care plan [facility] Start: 04-16-2024 Admission procedure [facility] Start: 04-16-2024 Introduction of urin mee catheter [facility] Start: 04-16-2024 Measuring intake and output [facility] Start: 04-16-2024 Patient referral to dietitian [facility] Start: 04-16-2024 Referral to occupati onal therapist [facility] Start: 04-16-2024 Referral to service [facility] Start: 04-16-2024 Vital signs measurements [facility] Start: 04-16-2024 [facility] Start: 04-16-2024 Following clinical pathway protocol [facility] Start: 04-16-2024 Patient discharge [facility] Start: 04-16-2024 [facility] Start: 04-14-2024 Admission procedure [facility] Start: 04-11-2024 Application of intermittent pneumatic compression device [facility] Start: 04-11-2024 Following clinical pathway protocol [facility] Start: 04-11-2024 Assessment of risk o f venous thromboembolism [facility] Start: 04-11-2024 Consultation for pain [facility] Start: 04-11-2024 Inhalation therapy procedure [facility] Start: 04-11-2024 Insertion of cathete r into peripheral vein [facility] Start: 04-11-2024 Providing care accor ding to standard [facility] Start: 04-11-2024 Provision of activit y privileges [facility] Start: 04-11-2024 Referral to occupati onal therapist [facility] Start: 04-11-2024 Referral to service [facility] Start: 04-11-2024 [facility] Start: 04-11-2024 Admission procedure [facility] Start: 03-31-2024 Advance Directive Discussion Advance Directive Discussion [facility] Start: 03-31-2024 [facility] Start: 11-30-2023 Covid-19 Vaccine ( season) Covid-19 Vaccine ( season) [facility] Start: 11-30-2023 Influenza vaccination Influenza Vacc ine (#1) [facility] Start: 08-05-2022 Protein measurement [facility] Start: 2020 RSV Vaccine (1 - 1-d ose 75+ series) RSV Vaccine (1 - 1-dose 75+ series) [facility] Start: 06-16-2017 End: 06-16-2017 Appointment Appointment [facility] Work Phone: Start: 12-17-2016 End: 12-17-2016 *BMP *BMP [facility] Work Phone: Start: 12-17-2016 End: 12-17-2016 Follow Up Appt 6 months Follow Up Appt 6 months [facility] Work Phone: Start: 12-17-2016 End: 12-17-2016 JHR JHR [facility] Work Phone: Start: 12-17-2016 End: 12-17-2016 Remote 30 day ecg rev/report 30 Day Holter Monitor [facility] Work Phone: Start: 06-11-2016 End: 06-11-2016 PLASTIC TILE SETTER PLASTIC TILE SETTER [facility] Work Phone: Start: 06-11-2016 End: 06-11-2016 Follow Up Appt 6 months Follow Up Appt 6 months [facility] Work Phone: Start: 06-11-2016 End: 06-11-2016 Follow Up BP Check Follow Up BP Check [facility] Work Phone: Start: 06-13-2015 End: 06-06-2016 Follow Up Appt 1 year Follow Up Appt 1 year [facility] Work Phone: Start: 06-13-2015 End: 06-06-2016 MMM MMM [facility] Work Phone: Start: 03-08-2015 End: 03-08-2015 PLASTIC TILE SETTER PLASTIC TILE SETTER [facility] Work Phone: Start: 03-08-2015 End: 03-08-2015 Follow Up Appt 3 months Follow Up Appt 3 months [facility] Work Phone: Start: 08-05-2014 End: 08-05-2014 Follow Up Appt 6 months Follow Up Appt 6 months [facility] Work Phone: Start: 08-05-2014 End: 08-05-2014 MMM MMM [facility] Work Phone: Start: 02-10-2014 End: 02-10-2014 PLASTIC TILE SETTER PLASTIC TILE SETTER [facility] Work Phone: Start: 02-10-2014 End: 02-10-2014 Follow Up Appt 6 months Follow Up Appt 6 months [facility] Work Phone: Start: 08-13-2013 End: 08-13-2013 Follow Up Appt 6 months Follow Up Appt 6 months [facility] Work Phone: Start: 08-13-2013 End: 08-13-2013 MMM MMM [facility] Work Phone: Start: 02-08-2013 End: 02-08-2013 PLASTIC TILE SETTER PLASTIC TILE SETTER [facility] Work Phone: Start: 02-08-2013 End: 02-08-2013 Follow Up Appt 6 months Follow Up Appt 6 months [facility] Work Phone: Start: 08-13-2012 End: 02-01-2013 Follow Up Appt 6 months Follow Up Appt 6 months [facility] Work Phone: Start: 08-13-2012 End: 02-01-2013 MMM MMM [facility] Work Phone: Start: 02-04-2012 End: 02-04-2012 Follow Up Appt 6 months Follow Up Appt 6 months [facility] Work Phone: Start: 04-25-2011 Shingrix Vaccine (2 of 3) Shingrix Vaccine (2 of 3) [facility] Start: 03-19-2006 Provider Instruction s for Treatment FOLLOW UP IN 4 MONTHS [facility] Work Phone: Start: 10-27-1963 Annual PCP Team [employer] Girdler apurva Disease Visit Annual PCP Team Chronic Disease Visit [facility] Start: 10-27-1963 Anxiety Screening Anxiety Screening [facility] Start: 10-27-1963 BP Controlled (<130/80) BP Con trolled (<130/80) [facility] Start: 10-27-1963 Depression Screening Depression Scre ening [facility] CT Abdomen and Pelvi s W contrast IV [facility] Lactoferrin [Presenc e] in Stool by Immunoassay [facility] Patient Education [facility] Work Phone: Patient referral [facility] Work Phone: Protein measurement [facility] Immunizations Immunization Date Immunization Notes Care Provider Fa brijeshty 02-25-2024 tetanus toxoid, redu lalo diphtheria toxoid, and acellular pertussis vaccine, adsorbed Dr. Michael Snowden MD Work Phone: [facility] 05-13-2017 influenza virus vacc ine, unspecified formulation Jovanni Matthew MD Work Phone: [facility] 03-17-2015 pneumococcal conjuga te vaccine, 13 valent [facility] 12-24-2014 influenza, high dose seasonal, preservative-free Jovanni Matthew MD Work Phone: [facility] 01-11-2013 influenza virus vacc ine, unspecified formulation Jovanni Matthew MD Work Phone: [facility] 02-28-2011 zoster vaccine, live Jovanni crump MD Work Phone: [facility] Work Phone: 02-19-2011 influenza virus vacc ine, unspecified formulation Jovanni Matthew MD Work Phone: [facility] 02-19-2011 pneumococcal polysaccharide vaccine, 23 valent [facility] 09-21-2007 tetanus toxoid, redu lalo diphtheria toxoid, and acellular pertussis vaccine, adsorbed Jovanni Matthew MD Work Phone: [facility] Payers Date Payer Category Payer Self-pay [id number] 2018 Medicare (Managed Care) [place] [id number] 2013 Medicare [id number] Unknown [place] Unknown [id number] .840.1.801218.3.579. 2.462 Unknown [id number] 2.840.1.423052.3.579. 2.462 Unknown [id number] 2.840.1.221166.3.579. 2.462 Unknown [id number] 2.840.1.117690.3.579. 2.462 Unknown [id number] 2.840.1.589951.3.579. 2.462 Unknown [id number] 2.840.1.959495.3.579. 2.462 Unknown [id number] 2.840.1.079901.3.579. 2.462 Unknown [id number] 2.840.1.823934.3.579. 2.462 Unknown [id number] 2.16840.1.273405.3.579. 2.462 Unknown [id number] 2.840.1.559646.3.579. 2.462 Unknown [id number] 2.16840.1.677590.3.579. 2.462 Unknown [id number] 2.16840.1.721837.3.579. 2.462 Unknown [id number] 2.16840.1.156410.3.579. 2.462 Unknown [id number] 2.16.840.1.671667.3.579. 2.462 Unknown [id number] 2.16.840.1.617579.3.579. 2.462 Unknown [id number] 2.16.840.1.755579.3.579. 2.462 Unknown [id number] 2.16.840.1.429303.3.579. 2.462 Unknown [id number] 2.16.840.1.785792.3.579. 2.462 Unknown [id number] 2.16.840.1.142456.3.579. 2.462 Unknown [id number] 2.16.840.1.456435.3.579. 2.462 Unknown [id number] 2..840.1.495439.3.579. 2.462 Unknown [id number] 2.840.1.686539.3.579. 2.462 Unknown [id number] 2..840.1.339976.3.579. 2.462 Unknown [id number] 2.16.840.1.006180.3.579. 2.462 Unknown [id number] 2.16.840.1.202602.3.579. 2.462 Unknown [id number] 2.16.840.1.351418.3.579. 2.462 Unknown [id number] 2..840.1.129428.3.579. 2.462 Unknown [id number] 2.16.840.1.794143.3.579. 2.462 Unknown [id number] 2.16.840.1.919262.3.579. 2.462 Unknown [id number] 2.16.840.1.258923.3.579. 2.462 Unknown [id number] 2.16.840.1.133724.3.579. 2.462 Unknown [id number] 2.16.840.1.399542.3.579. 2.462 Unknown [id number] 2.16.840.1.809286.3.579. 2.462 Unknown [id number] 2.16.840.1.453764.3.579. 2.462 Unknown [id number] 2.16.840.1.046345.3.579. 2.462 Unknown [id number] 2.16.840.1.914623.3.579. 2.462 Unknown [id number] 2.16.840.1.519051.3.579. 2.462 Unknown [id number] 2.16.840.1.184398.3.579. 2.462 Unknown [id number] 2.16.840.1.133819.3.579. 2.462 Unknown [id number] 2.16.840.1.988552.3.579. 2.462 Unknown [id number] 2.16.840.1.778668.3.579. 2.462 Unknown [id number] 2.16.840.1.338120.3.579. 2.462 Unknown [id number] 2.16.840.1.267751.3.579. 2.462 Social History Date Type Detail Facility Start: 04-10-2021 End: 05-09-2023 Tobacco smoking status NHIS Unknown if ever smoked [facility] Start: 09-21-2020 None [facility] Start: 09-21-2020 Homeless [facility] Start: 09-21-2020 Non-smoker [facility] Start: 1945 Sex Assigned At Female [facility] Start: 07-21-2024 End: 08-13-2024 Alcohol Use Alcohol Use [facility] Work Phone: Comment on above: Occasional alcohol u se tea once iin awhile Start: 04-16-2024 End: 07-21-2024 Tobacco smoking status NHIS Never smoked tobacco (finding) [facility] Start: 07-01-2024 End: 07-15-2024 Sex Female (finding) [facility] Start: 07-21-2024 Tobacco use and exposure Smokeless tobacco non-user [facility] Start: 07-21-2024 End: 08-13-2024 Alcoholic beverage intake Current drinker of alcohol (finding) [facility] Start: 07-21-2024 End: 08-13-2024 Tobacco use panel [facility] National Score (1-100), lower number is lower risk 75 [facility] Start: 07-21-2024 Tobacco Comment Mother smoked in childhood home. ETS exposure in a restaurant. [facility] Start: 02-19-2012 Alcohol Comment holidays [facility] Start: 1945 Sex assigned at Not on file [facility] NEGATED: Highlighted row Not [facility] Goals Date Patient Goal Desired Activity /State Functional Status Date Assessment Result Facility 05-21-2024 Functional status Ambulates [facility] Work Phone: 04-16-2024 Functional status Ambulates [facility] Work Phone: 11-03-2014 Are you deaf, or do you have serious difficulty hearing No 11/03/2014 11:42 AM Dalila Nielsen RN No [facility] 11-03-2014 Are you blind, or do you have serious difficulty seeing, even when wearing glasses No 11/03/2014 11:42 AM Dalila Nielsen RN No [facility] 11-03-2014 Do you have serious difficulty walking or climbing stairs Yes 11/03/2014 11:42 AM Dalila Nielsen RN Yes [facility] 11-03-2014 Do you have difficul ty dressing or bathing No 11/03/2014 11:42 AM Dalila Nielsen RN No [facility] 11-03-2014 Because of a physica l, mental, or emotional condition, do you have difficulty doing errands alone such as visiting a physician's office or shopping Yes 11/03/2014 11:42 AM Dalila Nielsen RN Yes [facility] Mental Status Date Assessment Result Facility 05-21-2024 Cognitive function Voice/Name [facility] Work Phone: 05-17-2024 Cognitive function Appropriate;C ooperativ e [facility] Work Phone: 04-16-2024 Cognitive function Voice/Name [facility] Work Phone: 11-03-2014 Because of a physica l, mental, or emotional condition, do you have serious difficulty concentrating, remembering, or making decisions Yes 11/03/2014 11:42 AM EDT Dalila Arevalo RN Yes [facility] Clinical Notes 06-14-2022 to 08-22-2024 Telephone [...] to the Jorje Chandra Auth Appeals Pool ([id number]). You can find templates listed below to support your appeal in [facility] (Epic drop down, select patient care, [...] Letter of Medical Necessity Jorje Hernandez Prior Veneer Puller III Endocrinology & Metabolism Kenedy Letter scanned into chart [facility] 08-22-2024 Miscellaneous Notes Images from the [...] your request via staff message to the [employer] Auth Appeals Pool ([id number]). You can find templates listed below to support your appeal in [facility] (Epic drop down, select patient care, [...] GRIFFIN Letter of Medical Necessity [facility] Prior Veneer Puller III Endocrinology & Metabolism Kenedy Letter scanned into chart documented in this encounter [facility] 08-13-2024 Note HNO ID: [id number] Author: SETH CHOWDARY MD Service: ? Author Type: Physician Type: Progress Notes Filed: 08/13/2024 08:45 Note Text: SPINE SURGERY OUTPATIENT CONSULT This is an in-person visit. SERVICE DATE: 08/13/2024 PCP: Michael Snowden MD REFERRING PROVIDER: Jovanni Matthew [address] [facility] [address] Lizette Davies is a 78 year old [...] walked recently and currently resides in a [facility]. She does not report bowel or [...] MRI scanned into Epic January 11, 2014 ([facility]) DDD (degenerative disc disease), lumbosacral Essential hypertension, [...] 12/31/13 EGD ESOPHAGOGASTRODUODENOSCOPY TRANSORAL DIAGNOSTIC 02/16/15 EGD [facility] [facility] inpt ESOPHAGOGASTRODUODENOSCOPY TRANSORAL DIAGNOSTIC 05/11/15 EGD EXTRACTION, ERUPTED TOOTH OR EXPOSED ROOT (ELEVATION AND/OR FORCEPS REMOVAL) Alviso teeth FOOT RIGHT OP SURGERY 01/2009 PAST SURGICAL HISTORY OF 1996 Bone fusion 1st MT and pin right foot PAST S (more content not included)... [facility] 08-13-2024 History of Presen t illness Narrative SPINE SURGERY OUTPATIENT CONSULT This is an in-person visit. SERVICE DATE: 08/13/2024 PCP: Michael Snowden MD REFERRING PROVIDER: Jovanni Matthew [address] [facility] [id number] Lizette Davies is a 78 year old [...] walked recently and [facility]. She does not report bowel or [...] (degenerative disc disease), cervical MRI scanned into [facility] January 11, 2014 ([facility]) DDD (degenerative disc disease), lumbosacral Essential hypertension, [...] 12/31/13 EGD ESOPHAGOGASTRODUODENOSCOPY TRANSORAL DIAGNOSTIC 02/16/15 EGD [facility] inpt ESOPHAGOGASTRODUODENOSCOPY TRANSORAL DIAGNOSTIC 05/11/15 EGD EXTRACTION, ERUPTED TOOTH OR EXPOSED ROOT (ELEVATION AND/OR FORCEPS REMOVAL) 1969's Alviso teeth FOOT RIGHT OP SURGERY 01/2009 PAST [...] needed for nausea/vomiting. COMPOUNDED PRESCRIPTION Home Health assessment services manager, aide, PT. Dx: Bilat sprained ankles, gait [...] 7:55 AM PAGER: documented in this encounter [facility] 07-21-2024 Note HNO ID: [id number] Author: MILLIE PETTY MD Service: ? Author [...] taking: Reported on 07/21/2024) COMPOUNDED PRESCRIPTION Viki kenny defense 17 drops daily and working up to 60 drops daily (in divided doses). Serving size 30 drops. Mineral water and ethanol 20-24%) (Patient not taking: Reported on 07/21/2024) OTC NUTRITIONAL SUPPLEMENT zypan supplement (Patient not taking: Reported on 07/21/2024) COMPOUNDED PRESCRIPTION Home Health assessment services manager, aide, PT. Dx: Bilat sprained ankles, gait [...] (degenerative disc disease), cervical MRI scanned into [facility] January 11, 2014 ([facility]) DDD (degenerative disc disease), lumbosacral Essential hypertension, [...] PFRMD 11/24/2000 Co (more content not included)... [facility] 07-21-2024 Instructions Jovanni Matthew MD - 07/21/2024 1:43 PM EDT Bring records including bone density testing to appointments with metabolic bone and spine surgeon Pain medication per pain management documented in this encounter [facility] 07-21-2024 Note HNO ID: [id number] Author: MILLY SINGH RN Service: ? Author [...] were reviewed: CD, reports Milly Singh RN [facility] 07-21-2024 History of Presen t illness Narrative [...] transitional care- ECF - PT stopped at [facility]. Can walk some with walker- about [...] (degenerative disc disease), cervical MRI scanned into [facility] January 11, 2014 ([facility]) DDD (degenerative disc disease), lumbosacral Essential hypertension, [...] 12/31/13 EGD ESOPHAGOGASTRODUODENOSCOPY TRANSORAL DIAGNOSTIC 02/16/15 EGD [facility] inpt ESOPHAGOGASTRODUODENOSCOPY TRANSORAL DIAGNOSTIC 05/11/15 EGD EXTRACTION, ERUPTED TOOTH OR EXPOSED ROOT (ELEVATION AND/OR FORCEPS REMOVAL) 1969's Alviso teeth FOOT RIGHT OP SURGERY 01/2009 PAST [...] SUPPLEMENT zypan supplement COMPOUNDED PRESCRIPTION Home Health assessment services manager, aide, PT. Dx: Bilat sprained ankles, gait [...] cervical and LS ddd, HTN, gastroparesis, h/o OK, h/o GIB, sarcoidosis, leg SCC, with h/o [...] which included preparing to see the patient, [id number] patient care, completing clinical documentation, obtaining and/or reviewing separately obtained history, performing a medically appropriate examination, counseling and educating the patient/family/caregiver, ordering medications, tests, or procedures, and communicating with other HCPs (not separately reported). documented in this encounter [facility] 07-21-2024 Note HNO ID: [id number] Author: JOVANNI MATTHEW MD Service: ? Author [...] transitional care- ECF - PT stopped at [facility]. Can walk some with walker- about [...] (degenerative disc disease), cervical MRI scanned into [facility] January 11, 2014 ([facility]) DDD (degenerative disc disease), lumbosacral Essential hypertension, [...] 12/31/13 EGD ESOPHAGOGASTRODUODENOSCOPY TRANSORAL DIAGNOSTIC 02/16/15 EGD [facility] inpt ESOPHAGOGASTRODUODENOSCOPY TRANSORAL DIAGNOSTIC 05/11/15 EGD EXTRACTION, ERUPTED TOOTH OR EXPOSED ROOT (ELEVATION AND/OR FORCEPS REMOVAL) 1969' Alviso teeth FOOT RIGHT OP SURGERY 01/2009 PAST SURGICAL HISTORY OF 1996 Bone fusion 1st MT and pin right foot PAST SURGICAL HISTORY OF 01/2013 left carpal tunnel surgery PAST SURGICAL HISTORY OF right Lasik 2001 PAST SURGICAL HISTORY OF 09/13 Skin (more content not included)... [facility] 05-19-[address] [facility] 05-18-[address] [facility] 04-16-2024 Evaluation note Diagnosis Onset Date Resolution [...] low back pain resolved April 16 3:42pm [facility] Work Phone: 1(307) 689-476901-17-2025 [facility]01-17-2025 [facility]-15-[facility]25 Evaluation note* Diagnosis Onset Date Resolution Status [...] back pain resolved April 16, 2024 3:42pm [facility] Work Phone: 1(350) 445-597201-15-2025 [facility]01-14-2025 [facility]02-02-2024 Discharge summary Author Geo Phillip [facility] May 02, 2023 3:54pm Note Date/Time May 02, 2023 3 :54pm [facility] Physical Therapy [address] [place] [address] / REHABILITATION SERVICES DISCHARGE SUMMARY MR#: [id number] Acct: [id number] Name: LIZETTE DAVIES Rep #: [id number] : 1945 77 From: Geo Phillip PT, [...] please feel free to call me at [phone]. Thank you for the referral of thispatient. Sincerely, Geo Phillip, PT, ATC Balance/Gait/Functional tests Balance/Special Test Scores Lower Extremity Functional Score: 19 Improvement % Improvement: 60 <Electronically signed by Geo Phillip PT, ATC> 05/02/23 2899 CC: Dr. Michael Snowden MD ~ [facility] Signed [facility] Work Phone: 1(445) 347-895303-17-2023 Discharge summary Author Geo Phillip [facility] June 14, 2022 3:55pm Note Date/Time June 14, 2022 3:4 9pm [facility] Physical Therapy [facility] [address] [place] [address] / REHABILITATION SERVICES DISCHARGE SUMMARY MR#: [id number] Acct: [id number] Name: LIZETTE DAVIES Rep #: [id number] : 1945 76 From: Geo Phillip PT, [...] please feel free to call me at [phone]. Thank you for the referral of thispatient. Sincerely, Geo Phillip, PT, ATC Balance/Gait/Functional tests - Balance/Special Test Scores Lower Extremity Functional Score: 12 <Electronically signed by Geo Phillip PT, ATC> 06/14/22 1549 CC: Dr. Michael Snowden MD ~ [facility] Signed [facility] Work Phone: Evaluation noteNo assessment information available [facility] Work Phone: Evaluation note* Diagnosis Onset Date Resolution Status Essential (primary) hypertension chronic Nonrheumatic aortic (valve) stenosis chronic Supraventricular tachycardia chronic [facility] Work Phone: Evaluation note* Diagnosis Onset Date Resolution Status Abdominal pain acute Diarrhea chronic [facility] Work Phone: Evaluation note* Diagnosis Onset Date Resolution Status Cellulitis acute Gastroparesis acute Diarrhea chronic [facility] Work Phone: Evaluation note* Diagnosis Onset Date Resolution Status Essential (primary) hypertension chronic Nonrheumatic aortic (valve) stenosis chronic Supraventricular tachycardia chronic Cellulitis acute Gastroparesis acute Diarrhea chronic [facility] Work Phone: Evaluation note* Diagnosis Onset Date Resolution Status Cellulitis acute Gastroparesis acute Diarrhea chronic Essential (primary) hypertension chronic Nonrheumatic aortic (valve) stenosis chronic Supraventricular tachycardia chronic [facility] Work Phone: Evaluation note* Diagnosis Osteopenia, unspecified location- Primary History of vertebral compression fracture Spondylolisthesis, grade 3 Acquired spondylolisthesis [facility] Acquired spondylolisthesis- Primary Cervical spondylosis without myelopathy Neural foraminal stenosis of lumbar spine Spinal stenosis, lumbar region, without neurogenic claudication Closed compression fracture of body of L1 vertebra (HCC) documented in this encounter [facility] Chief Complaint and Reason for Visit [...] 3 M FU Pain in left knee [id number] Reason for Visit Cellulitis Gastroparesis Diarrhea Essential (primary) hypertension Nonrheumatic aortic (valve) stenosis Supraventricular tachycardia Chief Complaint BALANCE RX HERE 3 M FU Pain in left knee MURMUR, SVT [id number] Reason for Visit Essential (primary) hypertension Nonrheumatic [...] 10:56am ADMISSION EXAM May 25, 2024 1:55pm [facility] June 01, 2024 4: 00am [facility] June 08, 2024 4 :00am [...] 10:56am ADMISSION EXAM May 25, 2024 1:55pm [facility] June 01, 2024 4: 00am [facility] June 08, 2024 4 :00am [facility] June 15, 2024 5 :00am [...] 10:56am ADMISSION EXAM May 25, 2024 1:55pm [facility] June 01, 2024 4: 00am [facility] June 08, 2024 4 :00am [facility] June 15, 2024 5 :00am [facility] June 22, 2024 5 :00am [...] 10:56am ADMISSION EXAM May 25, 2024 1:55pm [facility] June 01, 2024 4: 00am [facility] June 08, 2024 4 :00am [facility] June 15, 2024 5 :00am [facility] June 22, 2024 5 :00am NEW CONCERN June 23, 2024 4:5 8pm [facility] June 29, 2024 5: 00am [facility] July 06, 2024 5: 00am [facility] July 13, 2024 5 :00am Chief Complaint Admit Date LUMBAR COMPRESSION FRACTURE W PAIN Yani ivey 2024 3:42pm ADMISSION EXAM May 21, 2024 10:56am ADMISSION EXAM May 25, 2024 1:55pm [facility] June 01, 2024 4: 00am [facility] June 08, 2024 4 :00am [facility] June 15, 2024 5 :00am [facility] June 22, 2024 5 :00am NEW CONCERN June 23, 2024 4:5 8pm [facility] June 29, 2024 5: 00am [facility] July 06, 2024 5: 00am [facility] July 13, 2024 5 :00am [facility] July 20, 2024 4 :00am [facility] July 27, 2024 5 :00am [...] 10:56am ADMISSION EXAM May 25, 2024 1:55pm [facility] June 01, 2024 4: 00am [facility] June 08, 2024 4 :00am [facility] June 15, 2024 5 :00am [facility] June 22, 2024 5 :00am NEW CONCERN June 23, 2024 4:5 8pm [facility] June 29, 2024 5: 00am [facility] July 06, 2024 5: 00am [facility] July 13, 2024 5 :00am [facility] July 20, 2024 4 :00am [facility] July 27, 2024 5 :00am [...] Will Yes April 10 5:15pm Power of State Director Yes April 10, 2021 5:15pm Advance Directive Response Recorded Date/ Time Advance Directives Yes January 1:49am Living Will Yes April 10 4:15pm Power of State Director Yes April 10, 2021 4:15pm Advance Directive Response Recorded Date/ Time Living Will No March 30, 9:41pm Do you have a Healthcare Power of State Director? No March 30, 2024 9:41pm Living Will Yes April 10 5:15pm Do you have a Healthcare Power of State Director? Yes April 10, 2021 5:15pm Living Will No April 11 3:41pm Do you have a Healthcare Power of State Director? No April 11, 2024 3:41pm Living Will No April 19 5:36pm Do you have a Healthcare Power of State Director? No April 19, 2024 5:36pm Advance Directives Yes January 2:49am Advance Directive Response Recorded Date/ Time Living Will No April 11 3:41pm Do you have a Healthcare Power of State Director? No April 11, 2024 3:41pm Living Will No April 19 5:36pm Do you have a Healthcare Power of State Director? No April 19, 2024 5:36pm Advance Directives Yes January 2:49am Advance Directive Response Recorded Date/ Time Living Will No April 19 5:36pm Do you have a Healthcare Power of State Director? No April 19, 2024 5:36pm Advance Directives [...] Provider Active Start: April 16, 2024 Dr. Melivn Swenson DO Emergency Provider Active S tart: [...] Attending Provider Active Start: July 13, 2024 Instructor Technical Training Relationship Specialty Start Date End Date Michael Snowden Chi PCP - General Gerontology 09/05/17 Team Status: Inactive Member Role Status Dates Dr. Michael Snowden MD Primary Care Provider Active Start: June 23, 2024 End: June 23, 2024 Audra Drake NP LATHMAKER-C Attending Provider Active Start: June 23, 2024 [...] Attending Provider Active Start: August 03, 2024 Instructor Technical Training Relationship Specialty Start Date End Date Michael Snowden Chi PCP - General Gerontology 09/05/17 Instructor Technical Training Relationship Specialty Start Date End Date Michael Snowden Chi PCP - General Gerontology 09/05/17 Instructor Technical Training Relationship Specialty Start Date End Date Michael [...] Provider Active Start: August 24, 2024 Nikia JAVEIR MD Attending Provider Active Start: August 24, [...] or prosecute any alcohol or drug abuse patient.[facility] the event this information is protected by the Federal Confidentiality of Alcohol and Drug Abuse Patient Records regulations: The Federal rules restrict any use of the information to criminally investigate or prosecute any alcohol or drug abuse patient.[facility] the event this information is protected by the Federal Confidentiality of Alcohol and Drug Abuse Patient Records regulations: The Federal rules restrict any use of the information to criminally investigate or prosecute any alcohol or drug abuse patient.[facility] the event this information is protected by the Federal Confidentiality of Alcohol and Drug Abuse Patient Records regulations: The Federal rules restrict any use of the information to criminally investigate or prosecute any alcohol or drug abuse patient.[facility] the event this information is protected by the Federal Confidentiality of Alcohol and Drug Abuse Patient Records regulations: The Federal rules restrict any use of the information to criminally investigate or prosecute any alcohol or drug abuse patient.[facility] Reason for Visit (unrecogniz ed section and content) Reason Comments New Patient Reason Comments Established Patient Reason Comments Medication Preauthorization Evenity 210m g- Denied INFORMATION SOURCE (unrecogn ized section and content) DATE CREATED AUTHOR 08/27/2024 [facility] DATE CREATED AUTHOR AUTHOR'S VIKY ATION 09/02/[address] [facility] FOR RECORDS PERTAINING TO PATIENTS WHO ARE [...] BE BASED ON THE PRIMARY CLINICAL RECORDS. [facility]. provides no warranty or guarantee of the accuracy or completeness of information in this document.
[2024-09-07 07:50] LABS: Absolute Lymphocyte Count 1.52 X10^3/uL (0.83-4.51); Absolute Neutrophil Count 3.1 X10^3/uL (2.0-7.7); Basophil# 0.05 X10^3/uL; Basophil% 0.9 % (0-1); Eosinophil# 0.15 X10^3/uL; Eosinophils% 2.8 % (0-5); Hematocrit 34.3 % (37-47); Hemoglobin 11.1 g/dL (12.0-15.0); Lymphocyte # 1.52 X10^3/ul (0.83-4.51); Lymphocyte % 28.4 % (19-41); Mean Corp Hgb Conc 32.4 g/dL (32-36); Mean Corpuscular Hgb 32.7 pg (27.0-32.0); Mean Corpuscular Volume 101.2 fL (81-99); Mean Platelet Vol. 9.8 fl (6.2-12.0); Monocyte# 0.56 X10^3/uL; Monocyte% 10.4 % (0-10); NRBC Flagged by Analyzer 0 % (0-5); Neutrophil # 3.07 X10^3/uL (2.7-7.7); Neutrophil % 57.3 % (47-70); Platelet Count 203 K/mm3 (150-450); RBC Distribution Width SD 48.7 fl (35.1-43.9); Red Blood Count 3.39 M/mm3 (4.2-5.4); White Blood Count 5.4 K/mm3 (4.4-11.0)
[2024-09-07 08:00] LABS: Anion Gap 9 (5-15); BUN 16 mg/dL (4-19); Calcium,Total 8.9 mg/dL (7.6-11.0); Carbon Dioxide 25.2 mmol/L (21.0-32.0); Chloride 108 mmol/L (98-108); Creatinine, Serum 0.71 mg/dL (0.70-1.20); EST Glomerular Filtration Rate 87 (>60); Glucose 87 mg/dL (70-99); Potassium 4.1 mmol/L (3.3-5.1); Sodium Level 142 mmol/L (133-145)
== END ==
LOC: OLS.WHLTCC 05:00
PROVIDERS: PCP Family Medicine Geriatric Medicine; Visit Provider Internal Medicine
DX: I10 Essential (primary) hypertension (principal)
CPT/HCPCS: 36415; 80048; 85025

== ENCOUNTER → 2024-09-14 05:00 | Outpatient (REF) | payer MEDICARE, SELFPAY ==
[2024-09-14 08:45] LABS: Absolute Lymphocyte Count 1.52 X10^3/uL (0.83-4.51); Absolute Neutrophil Count 3.1 X10^3/uL (2.0-7.7); Basophil# 0.05 X10^3/uL; Basophil% 0.9 % (0-1); Eosinophil# 0.21 X10^3/uL; Eosinophils% 3.9 % (0-5); Hematocrit 34.7 % (37-47); Hemoglobin 11.3 g/dL (12.0-15.0); Lymphocyte # 1.52 X10^3/ul (0.83-4.51); Lymphocyte % 28.4 % (19-41); Mean Corp Hgb Conc 32.6 g/dL (32-36); Mean Corpuscular Hgb 33.1 pg (27.0-32.0); Mean Corpuscular Volume 101.8 fL (81-99); Mean Platelet Vol. 9.7 fl (6.2-12.0); Monocyte# 0.52 X10^3/uL; Monocyte% 9.7 % (0-10); NRBC Flagged by Analyzer 0 % (0-5); Neutrophil # 3.05 X10^3/uL (2.7-7.7); Neutrophil % 56.9 % (47-70); Platelet Count 216 K/mm3 (150-450); RBC Distribution Width CV 13.1 % (11.6-14.6); Red Blood Count 3.41 M/mm3 (4.2-5.4); White Blood Count 5.4 K/mm3 (4.4-11.0)
[2024-09-14 09:56] LABS: Anion Gap 10 (5-15); BUN 12 mg/dL (4-19); BUN/Creat Ratio 20.5 RATIO (10-20); Carbon Dioxide 24.5 mmol/L (21.0-32.0); Chloride 106 mmol/L (98-108); EST Glomerular Filtration Rate 92 (>60); Glucose 77 mg/dL (70-99); Sodium Level 140 mmol/L (133-145)
== END ==
LOC: OLS.WHLTCC 05:00
PROVIDERS: PCP Family Medicine Geriatric Medicine; Visit Provider Internal Medicine
DX: I10 Essential (primary) hypertension (principal)
CPT/HCPCS: 36415; 80048; 85025

== ENCOUNTER → 2024-09-21 | Outpatient (REF) | payer MEDICARE, SELFPAY ==
--- OUTSIDE RECORDS SUMMARY | 2024-09-21 04:49 | XMS RPT_ITS | CCD ---
Author Organization [facility] Care Team Providers Care Buckle Assembler Name Role Phone Riddhi Espinosa Unavailable Divina [...] Noreen A Unavailable Dana Weldon Unavailable Unavailable Transport Conductor, System Unavailable Unavailable Sp, Dr. Michael Bates Primary Care Provider Sp, Dr. Michael Bates Referring Provider Friend, Dr. Quevedo Attending Provider [phone] Sp, Dr. Michael Bates Primary Care Provider [...] Richard MD Referring Provider Unavaila ble Tickton DIMPLING MACHINE OPERATOR-C, Audra Attending Provider Sp OROZCO, Dr. Michael [...] Provider Rei OROZCO, Dr. Ayon Other Provider [place] DIMPLING MACHINE OPERATOR-C, Audra Attending Provider Beatriz OORZCO, Dr. Montejo Attending Provider Beatriz OROZCO, Nikia Attending Provider Unavaila navin Henderson MD, Nikia Referring Provider Unavaila ble [place] DIMPLING MACHINE OPERATOR-C, Audra Attending Provider Michael Snowden Chi Primary Care Provider Sp OROZCO, Dr. Michael Bates Primary Care Provider Sp OROZCO, Dr. Michael Bates Attending Provider Sp OROZCO, Dr. Michael Bates Referring Provider Dr. Michael Snowden MD, Chi Primary Care Provider SETH CHOWDARY Attending Unavailable JELANDONICKA, JOVANNI Referring Unavailable SP, MICHAEL CHI Primary Care Unavailable MILLIE PETTY Referring Unavailable SP, MICHAEL CHI Primary Care Unavailable AJAY GRANT Attending Unavailable JEDLICKA, JOVANNI Referring Unavailable SP, MICHAEL CHI Primary Care Unavailable JOVANNI MATTHEW Attending Unavailable SELF Referring Unavailable SP, MICHAEL CHI Primary Care Unavailable Sp, Michael Chi Primary Care Unavailable Audra García Attending Unavailable Sp, Michael Chi Primary Care Unavailable Oleghe OLS, Efewongbe Attending Unavailabl e Sp, Michael Chi Primary Care Unavailable Oleghe OLS, Efewongbe Attending Unavailabl e Oleghe OLS, Efewongbe Attending Unavailabl e Sp, Michael Chi Primary Care Unavailable Oleghe OLS, Efewongbe Referring Unavailabl e Oleghe OLS, Efewongbe Attending Unavailabl e Sp, Michael Chi Primary Care Unavailable Oleghe OLS, Efewongbe Referring Unavailabl e Sp, Michael Chi Primary Care Unavailable Sp, Michael Chi Referring Unavailable Sp, Michael Chi Attending Unavailable Sp, Michael Chi Primary Care Unavailable Audra García Attending Unavailable Oleghe OLS, Efewongbe Attending Unavailabl e Sp, Michael Chi Primary Care Unavailable Oleghe OLS, Efewongbe Attending Unavailabl e Sp, Michael Chi Primary Care Unavailable Oleghe OLS, Efewongbe Referring Unavailabl e Sp, Michael Chi Primary Care Unavailable Sp, Michael Chi Attending Unavailable Sp, Michael Chi Referring Unavailable Sp, Michael Chi Primary Care Unavailable Floridalma Bingham Attending Unavailable Sp, Michael [...] Unavailable Oleghe OLS, Efewongbe Attending Unavailabl e Gaetano Cleary Referring Unavailable Sp, Michael Chi Primary Care Unavailable Gaetano Cleary Attending Unavailable Sp, Michael Chi Primary Care Unavailable Sp, Michael Chi Attending Unavailable Sp, Michael Chi Referring Unavailable Gabo Hernandez Attending Unavailable Basali, Ayman Consulting Unavailable Sp, Micahel Chi Primary Care Unavailable Watkins, Lesli Admitting Unavailable Watkins, Lesli Consulting Unavailable Prayson Gabo Consulting Unavailable Sp, Michael Chi Admitting Unavailable Sp, Michael Chi Referring Unavailable Sp, Michael Chi Attending Unavailable Sp, Michael Chi Primary Care Unavailable Yasmin Su Attending Unavailable Sp, Michael Chi Primary Care Unavailable Sp, Michael Chi Consulting Unavailable Sp, Michael Chi Referring Unavailable Nikia Flores Attending Unavailabl e Sp, Michael Chi Primary Care Unavailable Sp, Michael Chi Primary Care Unavailable Yasmin Su Attending Unavailable Sp, Michael Chi Consulting Unavailable Sp, Michael Chi Referring Unavailable Watkins, Lesli Attending Unavailable Watkins, Lesli Consulting Unavailable Watkins, Lesli Admitting Unavailable Sp, Michael Chi Primary Care Unavailable Gabo Hernandez Attending Unavailable Basali, Ayman Consulting Unavailable Watkins, Lesli Admitting Unavailable Sp, Michael Chi Primary Care Unavailable Watkins, Lesli Consulting Unavailable Gabo Hernandez Consulting Unavailable Gabo Hernandez Attending Unavailable Basali, Ayman Consulting Unavailable Gabo Hernandez F Consulting Unavailable Sp, Michael Chi Primary Care Unavailable Sae Brandt Attending Unavailable Sp, Michael Chi Referring Unavailable Nagajothi, Nagapradee Referring Unavailabl e ManuelaziyadthiManuelapradee Attending Unavailabl e Sp, Michael Chi Primary [...] Chi Referring Unavailable Tami Caldwell Attending Unavailable Iraidaton DIMPLING MACHINE OPERATORAudra Attending Unavailable Sp, Michael Chi Primary Care Unavailable Sp, Michael Chi Primary Care Unavailable Nikia Henderson Attending Unavailable Sp, Michael Chi Primary Care Unavailable Audra García Attending Unavailable Sp, Michael Chi Primary Care Unavailable Audra García Attending Unavailable Nikia Flores Attending Unavailabl e Sp, Michael Chi Primary Care Unavailable Nikia Flores Attending Unavailabl e Sp, Michael Chi Primary Care Unavailable Allergies Allergy Classification Reported Allergen(s) Allergy Type Date of Onset Reaction(s) Facility (3 sources) alendronate drug allergy 015 GI upset [facility] Work Phone: (3 sources) amLODIPine drug allergy 016 "freezes up limbs" [facility] Work Phone: (3 sources) atorvastatin drug allergy 016 muscle weakness [facility] Work Phone: (20 sources) codeine; Translations: [CODEINE] drug allergy 009 Intolerance [facility] Work Phone: (20 sources) ibuprofen; Translations: [IBUPROFEN] drug allergy 005 GI Upset [facility] Work Phone: (20 sources) lisinopril; Translations: [LISINOPRIL] drug allergy 012 Swelling, Anaphylaxis [facility] Work Phone: (3 sources) NIFEdipine drug allergy 016 "freezes up limbs" [facility] Work Phone: (3 sources) HCTZ drug allergy 015 low sodium [facility] Work Phone: (6 sources) NKDA drug allergy 013 [facility] Work Phone: (20 sources) Alendronate; Translations: [ALENDRONATE SODIUM] Drug Allergy 015 GI Upset, Other: See Comments [facility] (20 sources) amLODIPine Drug Allergy 022 Freezes up limbs [facility] (20 sources) atorvastatin; Translations: [ATORVASTATIN] Drug Allergy 016 Intolerance [facility] (20 sources) Doxazosin; Translations: [DOXAZOSIN] Drug Allergy Other: See Comments [facility] Comment on above: VASOVAGAL (20 sources) hydroCHLOROthiazide; Translations: [HYDROCHLOROTHIAZIDE] Drug Allergy Other: See Comments [facility] (20 sources) NIFEdipine; Translations: [NIFEDIPINE] Drug Allergy Other: See Comments [facility] (1 source) HCTA Propensity to adverse reactions Low sodium [facility] Work Phone: (1 source) Ibuprofen Drug Allergy [facility] Work Phone: Comment on above: abd pain (1 source) Codeine/Codeine Derivatives; Translations: [Codeine/Codeine Derivatives] Allergy to substance (finding) [facility] Work Phone: Comment on above: Headache (1 source) Alendronate; Translations: [ALENDRONATE] Drug Allergy 015 [facility] Repository (1 source) Alendronate Drug Allergy [facility] Repository (1 source) amLODIPine Drug Allergy [facility] Repository (1 source) atorvastatin Drug Allergy [facility] Repository (1 source) Doxazosin Drug Allergy [facility] Repository (1 source) hydroCHLOROthiazide Drug Allergy [facility] Repository (1 source) NIFEdipine Drug Allergy [facility] Repository Medications Current Medications Medication Drug Class(es) Dates Sig (Normalized) Sig (Original) B Complex-Vitamin C-Folic Acid 400 mcg Tablet (2 sources) Start: 05-19-2024 B Complex-Vitamin C-Folic Acid 400 mcg Tablet Active 1 {tbl} PO DAILY 0 May 19, 2024 1:00am baclofen 5 mg oral tablet (20 sources) gamma-Aminobutyri c Acid-ergic Agonist Start: 05-29-2024 take 1 tablet by mouth three times daily baclofen 5 mg tablet Take 5 mg by mouth three times a day. 05/29/2024 Active Start: 04-16-2024 End: 02-19-2025 cholecalciferol 0.025 mg ora l tablet (20 sources) Vitamin D Start: 05-19-2024 Start: 04-03-2019 End: 05-19-2024 Start: 02-04-2012 take 1 tablet by [facility] twice daily VITAMIN D 2000 UNIT TABS One tablet by mouth twice daily CHOLECALCIFEROL [id number] Bret Daniels MD Start: 02-04-2012 take 2 tablets by mo [facility] once daily VITAMIN D 2000 UNIT TABS Two tablets by mouth daily CHOLECALCIFEROL [id number] Lyric Murcia RN take 1 tablet by [facility] once daily cholecalciferol (VITAMIN D) 1,000 unit tab tablet Take 1,000 Units by mouth once daily. Active take 1 tablet by [facility] once daily Cholecalciferol, Vitamin D3, (VITAMIN D-3) 5,000 unit tab Take 5,000 Units by mouth once daily. Active citalopram 10 mg oral tablet (6 sources) Serotonin Reuptake Inhibitor citalopram hydrobrom eugene (CELEXA) 10 mg tablet Take by mouth once daily. Active COMPOUNDED PRESCRIPTION (12 sources) Start: 01-25-2016 COMPOUNDED PRESCRIPTION Viki kenny defense 17 drops daily and working up to 60 drops daily (in divided doses). Serving size 30 drops. Mineral water and ethanol 20-24%) 01/25/2016 Active Start: 06-07-2015 COMPOUNDED PRE SCRIPTION Home Health knotting machine operator portable, aide, PT. Dx: Bilat sprained ankles, gait instability. 1 Each 0 06/07/2015 Active docusate sodium 50 mg / ana osides, senior care 8.6 mg oral tablet (20 sources) Start: 04-16-2024 End: 05-19-2024 Start: 04-16-2024 End: 05-19-2024 Sennosides-Docusate Sodium ( Stimulant Laxative Plus) 8.6-50 mg Tablet Active 2 {tbl} PO TWICE A DAY as needed for Constipation 0 May 19, 2024 1:00am take 1 tablet by [facility] once daily senna-docusate (SENNA PLUS) 8.6-50 mg per tablet Take 1 tablet by mouth once daily. Active folic acid 1 mg oral tablet (20 sources) Start: 06-11-2016 lidocaine 0.05 mg/mg medicated patch (16 sources) Antiarrhythmic, Amide Local Anesthetic Start: 04-16-2024 End: 04-16-2024 lidocaine 0.04 mg/mg / menthol 0.04 mg/mg medicated patch (6 sources) Antiarrhythmic, Amide Local Anesthetic lidocaine-menthol 4-4 % ptmd Apply to affected area. on in am and off @ HS Active magnesium chloride 598 mg delayed release oral tablet (14 sources) Start: 05-19-2024 take 1 tablet by mouth once stacey y magnesium chloride [address] tablet Take 64 mg by mouth once daily. Active magnesium citrate 58.2 mg/ml oral solution (14 sources) Start: 05-19-2024 Start: 05-19-2024 take 1 [...] th twice daily TOPROL XL 25 MG [id number] One tablet by mouth twice daily METOPROLOL SUCCINATE [id number] Bret Daniels MD Start: 02-08-2013 take 1 tablet by [facility] twice daily TOPROL XL 25 MG [id number] One tablet by mouth twice daily METOPROLOL SUCCINATE [id number] Lyric Murcia RN Start: 02-08-2013 take 1 tablet by [facility] once daily TOPROL XL 25 MG [id number] One tablet by mouth daily METOPROLOL SUCCINATE [id number] Ashley Ernst PA-C Start: 02-08-2013 take 1 tablet by [facility] th twice daily TOPROL XL 25 MG [id number] One tablet by mouth twice daily METOPROLOL SUCCINATE [id number] Bret Daniels MD Start: 02-08-2013 take 1 tablet by [facility] th once daily TOPROL XL 50 MG [id number] One half tablet by mouth daily METOPROLOL SUCCINATE [id number] Bret Daniels MD Start: 02-08-2013 take 1 tablet by [facility] th twice daily TOPROL XL 25 MG [id number] One tablet by mouth twice daily METOPROLOL SUCCINATE [id number] Lyric Murcia RN Start: 02-08-2013 take 1 tablet by [facility] once daily TOPROL XL 25 MG [id number] One tablet by mouth daily METOPROLOL SUCCINATE [id number] Ashley Ernst PA-C Start: 02-04-2012 take 1 tablet by lib[facility] th once daily TOPROL XL 50 MG [id number] One tablet by mouth daily METOPROLOL SUCCINATE [id number] Bret Daniels MD Start: 02-04-2012 take 1 tablet by [facility] once daily TOPROL XL 50 MG [id number] One tablet by mouth daily METOPROLOL SUCCINATE [id number] Bret Daniels MD MULTIVITAMIN TAB (6 sources) Start: 09-02-2005 MULTIVITAMIN T AB Take [...] 05-11-2019 Nystatin Discontinued 1 APPL IC TOPICAL [id number] 26, 2019 1:00am May 11, 2019 3:42pm Start: 08-27-2017 End: 07-14-2018 Start: 08-27-2017 End: 07-14-2018 Nystatin Discontinued 1 APPL IC TOPICAL [id number] 27, 2017 12:00am July 14, 2018 2:55pm ondansetron 4 mg oral tablet (6 sources) Serotonin-3 Receptor Antagonist ondansetron (ZOFRAN) 4 mg tablet Take by mouth every 4 hours as needed for nausea/vomiting. Active OTC NUTRITIONAL SUPPLEMENT (6 sources) OTC NUTRITIONAL SUPPLEMENT zypan supplement Active 1.17 ml romosozumab-aqqg 89.7 mg/ml prefilled syringe (5 sources) Start: 07-22-2024 End: 07-22-2025 romosozumab-aqqg (EVENITY) 105 mg/1.17 mL syrg syringe Indications: Age-related osteoporosis with current pathological fracture, initial encounter , History of vertebral compression fracture Inject 2 syringes subcutaneously once every month. 2 each 07/22/2024 07/22/2025 Active traMADol hydrochloride 50 mg oral tablet (16 sources) Opioid Agonist Start: 04-11-2024 End: 05-19-2024 Start: 04-11-2024 End: 05-19-2024 take 1 tablet by mouth twice daily as needed for pain Tramadol 50 mg tablet Discontinued 50 mg PO TWICE DAILY NEEDED as needed for pain April 11, 2024 1:00am May 19, 2024 9:06pm vitamin B 12 (19 sources) Vitamin B12 Start: 05-19-2024 take 2 tablets by mouth once daily Cyanocobalamin (Vitamin B-12) 500 mcg Tablet Active 1000 ug PO DAILY 0 May 19, 2024 1:00am Start: 04-11-2024 End: 05-19-2024 Start: 02-04-2012 take 1 tablet by lib[facility] once daily VITAMIN B-12 100 MCG TABS One tablet by mouth daily CYANOCOBALAMIN [id number] Bret Daniels MD take 1 tablet by [...] tablet by mouth daily B COMPLEX VITAMINS [id number] Bret Daniels MD Start: 05-22-2014 End: 07-14-2018 [...] tablet by mouth daily B COMPLEX VITAMINS [id number] Lyric Murcia RN Start: 02-04-2012 End: 03-08-2015 take 1 tablet by mouth once daily VITAMIN B COMPLEX TABS One tablet by mouth daily B COMPLEX VITAMINS [id number] Ashley Ernst PA-C VITAMIN B COMPLEX ORAL (6 sources) Start: 05-22-2014 VITAMIN B COMPLEX ORAL once daily. 05/22/2014 Active 100 ml zoledronic acid 0.05 mg/ml injection (1 source) Bisphosphonate Start: 09-07-2024 inject 100 mL intravenously once zoledronic acid (RECLAST) 5 mg/100 mL PREMIX piggyback Indications: Age-related osteoporosis with current pathological fracture, initial encounter Inject 100 mL intravenously one time only for 1 dose. 100 mL 09/07/2024 Active (20 sources) Start: 05-19-2024 Start: 04-11-2024 [...] PO Q8H as needed for pain 10 3 March 31, 2024 April 11, 2024 1:31pm [...] 15, 2016 12:00am July 02, 2017 2:34pm Crisp (20 sources) Start: 05-25-2020 End: 02-23-2024 Start: 05-25-2020 End: 02-23-2024 Crisp 650 mg tablet Discon tinued mg PO May 25, 2020 1:00am February 23, 2024 1:42pm Start: 05-25-2020 Crisp Active MG PO May 25, 2020 12:00am Start: 05-25-2020 Crisp Active MG PO May 25, 2020 1:00am Start: 07-02-2017 End: 08-18-2017 Start: 07-02-2017 End: 08-18-2017 take 1 tablet by mouth once daily Crisp 650 mg tablet Discontinued 650 mg PO daily July 02, 2017 12:00am August 18, 2017 3:35pm Start: 07-02-2017 End: 08-18-2017 take 650 mg by mouth once daily Crisp Discontinued 6 50 MG PO daily July 01, 2017 11:00pm August 18, 2017 2:35pm Start: 07-02-2017 End: 08-18-2017 take 650 mg by mouth once daily Crisp Discontinued 6 50 MG PO daily July 02, 2017 12:00am August 18, 2017 3:35pm Start: 02-03-2013 End: 02-10-2014 ALFALFA 650 MG TABS as neede d ALFALFA [id number] GERALD MoranC amLODIPine 2.5 mg oral table t (20 [...] One tablet by mouth daily AMLODIPINE BESYLATE [id number] Bret Daniels MD Start: 08-03-2014 End: 08-05-2014 take 1 tablet by mouth once daily NORVASC 2.5 MG TABS One tablet by mouth daily AMLODIPINE BESYLATE [id number] Lyric Murcia RN amoxicillin 500 mg oral caps ule (20 sources) Penicillin-class Antibacterial Start: 02-01-2019 End: 02-12-2019 [...] One tablet by mouth daily ASCORBIC ACID [id number] Lyric Murcia RN aspirin 81 mg chewable tablet (20 sources) Platelet Aggregation Inhibitor, Nonsteroidal Anti-inflammatory Drug Start: 11-07-2014 End: 02-19-2015 aspirin 400 mg / caffeine 32 mg oral tablet (20 sources) Nonsteroidal Anti-inflammatory Drug, Central Nervous System Stimulant, Methylxanthine Start: 02-16-2015 End: 02-19-2015 Start: 08-03-2014 End: 03-01-2015 take 2 tablets by mouth four times daily as needed ANACIN 400-32 MG TABS Two tablets by mouth four times daily as needed ASPIRIN-CAFFEINE [id number] Lyric Murcia RN Start: 08-03-2014 take 2 tablets by mo uth four times daily as needed ANACIN 400-32 MG TABS Two tablets by mouth four times daily as needed ASPIRIN-CAFFEINE [id number] Lyric Murcia RN Start: 08-03-2014 take 2 [...] ANACIN 400-32 MG TABS as needed ASPIRIN-CAFFEINE [id number] Elenita Villalobos RN Start: 02-03-2013 End: 02-10-2014 ANACIN 400-32 MG TABS as nee ded ASPIRIN-CAFFEINE [id number] Ashley Ernst PA-C Start: 02-03-2013 End: 02-10-2014 ANACIN 400-32 MG TABS as nee ded ASPIRIN-CAFFEINE Ashley Ernst PA-C Start: 02-03-2013 ANACIN 400-32 MG TABS as needed ASPIRIN-CAFFEINE Elenita Villalobos RN atorvastatin 20 mg oral tablet (6 sources) HMG-CoA Reductase Inhibitor Start: 03-01-2015 End: 04-26-2015 take 1 tablet by mouth once daily ATORVASTATIN CALCIUM 20 MG TABS One tablet by mouth daily ATORVASTATIN CALCIUM [id number] Jessica Smith RN azaTHIOprine 100 mg injection (6 sources) Purine Antimetabolite Start: 03-01-2015 End: 03-08-2015 take 1 tablet by mouth once daily AZASAN 100 MG TABS One tablet by mouth daily AZATHIOPRINE [id number] Lyric Murcia RN biotin (6 sources) Start: 02-04-2012 End: 02-08-2013 take 1 tablet by mouth once daily BIOTIN FORTE TABS One tablet by mouth daily BIOTIN TABS [id number] Ashley Ernst PA-C Start: 02-04-2012 take 1 tablet by [facility] once daily BIOTIN FORTE TABS One tablet by mouth daily BIOTIN TABS [id number] Bret Daniels MD CALCIUM-MAGNESIUM TABS (3 sources) Start: 02-04-2012 take 2 tablets by mouth once daily THERESE-MAG TABS Two tablets by mouth daily CALCIUM-MAGNESIUM TABS [id number] MD NATAN Salazar (3 sources) Start: 06-11-2016 take 1 tablet by mouth once daily NATAN One tablet by mouth daily NATAN Ernst [...] One half tablet by mouth daily CHLORTHALIDONE [id number] Aimee Davis RN Start: 05-22-2014 End: 05-23-2014 Start: 05-22-2014 End: 05-23-2014 take 25 mg by mouth once daily Chlorthalidone Disconti nued 25 MG PO DAILY May 22, 2014 1:00am May 23, 2014 3:11pm clindamycin 300 mg oral caps ule (15 sources) Lincosamide Antibacterial Start: 09-25-2022 End: 10-02-2022 take 4 capsules by mouth every h our CLINDAMYCIN HCL, 150MG (Oral Capsule) 4 capsules 1 hour prior to dental procedure for 0 days Refills: 0 Ordered: 19-Mar-2006 Mast Day DELGADILLO Active Comments: due to knee replacement Comment on above: due to knee replacem ent docusate sodium 100 mg oral capsule (20 sources) Start: 2014 End: 2014 doxazosin 4 mg oral tablet (20 sources) alpha-Adrenergic Berenice Start: 2019 End: 2019 HOUTTUYNIA MICOBIAL DEFENSE (3 sources) Start: 2016 HOUTTUYNIA MICOBIAL DEFENSE 29 drops daily HOUTTUYNIA MICOBIAL DEFENSE Ashley Ernst PA-C hydroCHLOROthiazide 25 mg oral tablet (6 sources) Thiazide Diuretic Start: 2012 End: 2014 take 1 tablet by mouth once daily HYDROCHLOROTHIAZIDE 25 MG TABS One tablet by mouth daily HYDROCHLOROTHIAZIDE [id number] Bret Daniels MD lactulose 667 mg/ml oral solution (20 sources) Osmotic Laxative Start: 2020 End: 2022 Start: 03-01-2015 LACTULOSE 10 G M/15ML SOLN 30 cc (20 gm) by mouth daily as needed LACTULOSE [id number] Bret Daniels MD Start: 11-14-2014 End: 07-15-2016 [...] at bedtime 250mg tablets MAGNESIUM OXIDE CAPS [id number] Bret Daniels MD Start: 08-13-2013 MAGNESIUM OXID E CAPS 4 tablets at bedtime MAGNESIUM OXIDE CAPS [id number] Bret Daniels MD melatonin 3 mg oral tablet (20 sources) Start: 04-26-2019 End: 05-11-2019 Start: 04-26-2019 End: 05-11-2019 take 1 tablet by mouth at bedtime Melatonin 3 MG tablet Discontinued 3 mg PO AT BEDTIME April 26, 2019 1:00am May 11, 2019 3:41pm metoclopramide 10 mg oral ta blet (20 sources) Dopamine-2 Receptor Antagonist Start: 11-07-2014 End: [...] One tablet by mouth daily MULTIPLE VITAMIN [id number] Bret Daniels MD Mdwcwmrvckwa-Di-Owno- Minerals (13 sources) Start: 02-16-2015 End: 07-02-2017 take 1 tablet by mouth once daily Ftzyrxkipsoh-Qo-Mkwp-Mine rals Discontinued 1 TABLET PO DAILY February 16, 2015 12:00am July 02, 2017 1:34pm Start: 02-16-2015 End: 07-02-2017 take 1 tablet by mouth once daily Iepiutlyvsyj-Mh-Plpd-Minerals Discontinu ed 1 TABLET PO DAILY February 16, 2015 1:00am July 02, 2017 2:34pm Klagxglhzjkz-Si-Prtt-Mineral s 1 EACH tablet (2 sources) Start: 02-16-2015 End: 07-02-2017 take 1 tablet by mouth once daily Erbxcrgdwxfd-Zk-Llzj-Minerals 1 EACH tablet Discontinued 1 {tbl} PO DAILY February 16, 2015 1:00am July 02, 2017 2:34pm naproxen 250 mg oral tablet (6 sources) Nonster oidal Anti-in flammat ory Drug Start: 08-03-2014 End: 08-05-2014 take 1 tablet by mouth three times daily as needed NAPROXEN 250 MG TABS One tablet by mouth three times daily as needed NAPROXEN [id number] Bret Daniels MD nitrofurantoin, macrocrystal s 25 mg / nitrofurantoin, monohydrate 75 mg oral capsule (20 sources) Nitrofu ran Antibac terial Start: 04-10-2021 End: 01-06-2023 nortriptyline 10 mg oral capsule (20 sources) Tricycl ic Antidep ressant Start: 08-27-2017 End: 07-14-2018 Start: 08-27-2017 End: 07-14-2018 take 1 capsule by mouth at bedtime Nortriptyline 10 MG capsule Discontinued 10 mg PO AT BEDTIME August 27, 2017 12:00am July 14, 2018 2:56pm oxyCODONE hydrochloride 5 mg oral tablet (20 sources) Opioid Agonist Start: 06-03-2024 End: 08-31-2024 Start: 04-16-2024 End: 05-31-2024 take 1 capsule by [facility] every four hours as needed oxyCODONE [...] One tablet by mouth daily PANTOPRAZOLE SODIUM [id number] Bret Daniels MD Start: 03-01-2015 take 1 tablet by [facility] twice daily PROTONIX 40 MG TBEC One tablet by mouth twice daily PANTOPRAZOLE SODIUM [id number] Lyric Murcia RN potassium chloride 10 meq ex tended release oral tablet (20 sources) Start: 05-04-2013 End: 11-14-2014 Start: 02-08-2013 End: 03-01-2015 take 1 tablet by mouth once daily KLOR-CON M20 20 MEQ CR-TABS One tablet by mouth daily POTASSIUM CHLORIDE IRMA CR [id number] Lyric Murcia RN Start: 02-08-2013 take 1 tablet by lib[facility] th once daily KLOR-CON M20 20 MEQ CR-TABS One tablet by mouth daily POTASSIUM CHLORIDE IRMA CR [id number] Ashley Ernst PA-C Start: 02-08-2013 take 1 tablet by libby th once daily KLOR-CON M20 20 MEQ CR-TABS One tablet by mouth daily POTASSIUM CHLORIDE IRMA CR [id number] Ashley Ernst PA-C Start: 02-08-2013 End: 03-01-2015 take 1 tablet by mouth once daily KLOR-CON M20 20 MEQ CR-TABS One tablet by mouth daily POTASSIUM CHLORIDE IRMA CR [id number] Lyric Murcia RN Start: 08-13-2012 take 1 tablet by libby th twice daily KLOR-CON M20 20 MEQ CR-TABS One tablet by mouth twice daily POTASSIUM CHLORIDE IRMA CR [id number] Lyric Murcia RN Start: 08-13-2012 take 1 tablet by libby th twice daily KLOR-CON M20 20 MEQ CR-TABS One tablet by mouth twice daily POTASSIUM CHLORIDE IRMA CR [id number] Lyric Murcia RN predniSONE 10 mg oral tablet (9 sources) Corticosteroid Start: 03-01-2015 End: 03-08-2015 take 1 tablet by mouth once daily PREDNISONE 10 MG TABS One tablet by mouth daily PREDNISONE [id number] Ashley Ernst PA-C sulfamethoxazole 800 mg / [...] tartrate 2 mg extended release oral capsule (20 sources) Cholinergic Muscarinic Antagonist Start: 08-27-2017 End: 07-14-2018 Turmeric extract (2 sources) Start: 04-11-2024 End: 05-19-2024 take 1 capsule by mouth once daily Turmeric 400 mg capsule Discontinued 400 mg PO DAILY April 11, 2024 1:00am May 19, 2024 9:05pm vitamin a [id number] unt oral capsule (20 sources) Vitamin A Start: 07-02-2017 End: 07-14-2018 [...] TABS Three tablets by mouth daily CHOLECALCIFEROL [id number] Bret Daniels MD Start: 02-04-2012 take 3 tablets by mo [facility] once daily VITAMIN D 1000 UNIT TABS Three tablets by mouth daily CHOLECALCIFEROL [id number] MD Kacie Salazar (15 sources) Start: 10-13-2014 End: 02-19-2015 Kacie Discontinued 1 - 2 NMA PO 3 [...] Date Documented Da te Episodic/Chronic Abdominal hernia (17 sources) Left inguinal hernia ; Translations: [Unilateral inguinal hernia, without obstruction or gangrene, not specified as recurrent] 06-27-2022 Episodic Abdominal pain (20 sources) Finding of sensation of abdomen; Translations: [Unspecified abdominal pain] 03-12-2022 Episodic Acute and unspecified renal failure (20 sources) Injury of kidney; Translations: [Acute kidney failure, unspecified] 06-12-2020 Episodic Acute myocardial infarction (3 sources) Subsequent non-ST elevation (NSTEMI) myocardial infarction; Translations: [Subsequent non-ST elevation (NSTEMI) myocardial infarction] Onset: 5 03-08-2015 Chronic Cardiac dysrhythmias (20 sources) Supraventricular tachycardia; Translations: [Supraventricular tachycardia] Onset: 2 02-03-2012 Chronic Coronary atherosclerosis and other heart disease (20 sources) History of non-ST segment elevation myocardial infarction; Translations: [Old myocardial infarction] Onset: 5 01-04-2022 Chronic Deficiency and other anemia (1 source) Vitamin B12 deficiency anemia, unspecified; Translations: [Vitamin B12 deficiency anemia, unspecified] Onset: 5 Episodic Deficiency and other anemia (1 source) Folate deficiency anemia, unspecified; Translations: [Folate deficiency anemia, unspecified] Onset: 5 Episodic E Codes: Fall (8 sources) Fall; Translations: [Unspecified fall, initial encounter] 03-04-2024 Episodic Essential hypertension (20 sources) Hypertensive disorder; Translations: [Essential hypertension] Onset: 5 03-08-2015 Chronic Comment on above: chronic stable-kell nue present regimen Heart valve disorders (20 sources) Aortic valve stenosis; Translations: [Aortic stenosis, non-rheumatic ] Onset: 7 06-11-2016 Chronic Immunity disorders (20 sources) Sarcoidosis; Translations: [Sarcoidosis, unspecified] 06-03-2022 Chronic Menopausal disorders (16 sources) Postmenopausal bleeding; Translations: [Postmenopausal bleeding] 04-16-2024 Chronic Mood disorders (2 sources) Dysthymia; Translations: [Dysthymic] 02-13-2015 Chronic Comment on above: at this point will gregorio sweeney as she doesnt want to tryother meds Nutritional deficiencies (17 sources) Vitamin D deficiency; Translations: [Vitamin D deficiency, unspecified] Onset: 5 04-16-2024 Chronic Open wounds of head; neck; and trunk (8 sources) Scalp laceration; Translations: [Laceration without foreign body of scalp, initial encounter] 03-04-2024 Episodic Osteoarthritis (8 sources) Osteoarthrosis, unspecified whether generalized or localized, lower leg; Translations: [Osteoarthritis] Onset: 9 02-27-2006 Chronic Comment on above: s/pknee replacement on the left- 2004 Other acquired deformities (8 sources) Lumbar spondylolisthesis; Translations: [Spondylolisthesis, lumbar region] [...] unspecified site; Translations: [Osteopenia, unspecified location] Onset: Episodic Other congenital anomalies (6 sources) Congenital pes planus; Translations: [Congenital pes [...] can be precurser to dm Other fractures (20 sources) Compression fracture of lumbar spine; Translations: [Wedge compression fracture of first lumbar vertebra, initial encounter for closed fracture] 04-11-2024 Episodic Other fractures (2 sources) Wedge compression fracture of first lumbar vertebra, subsequent encounter for fracture with routine healing; Translations: [Wedge compression fracture of first lumbar vertebra, subsequent encounter for fracture with routine healing] Onset: Episodic Other gastrointestinal disorders (19 sources) Diarrhea; Translations: [Diarrhea, unspecified] 06-07-2022 Episodic Other gastrointestinal disorders (18 sources) Abdominal bloating; Translations: [Abdominal distension (gaseous)] 06-07-2022 Episodic Other gastrointestinal disorders (1 source) Constipation, unspecified; Translations: [Constipation, unspecified] Onset: Episodic Other injuries and conditions due to external causes (3 sources) H/O: vertebral fracture; Translations: [Personal history of (healed) traumatic fracture] 07-21-2024 Episodic Other injuries and conditions due to external causes (1 source) Personal history of (healed) traumatic fracture; Translations: [History of vertebral compression fracture] Onset: Episodic Other nervous system disorders (16 sources) Peripheral neuropathic pain; Translations: [Unspecified mononeuropathy of bilateral lower limbs] 04-16-2024 Chronic Other nervous system disorders (8 sources) Syringomyelia; 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] 11-14-2023 Chronic Other nervous system disorders (12 sources) Unable to walk; Translations: [Difficulty in walking, not elsewhere classified] 04-11-2024 Chronic Other nervous system disorders (6 sources) Disease of spinal cord, unspecified; Translations: [Unspecified disease of spinal cord] Onset: 4 12-14-2013 Chronic Other nervous system disorders (6 sources) Spinal cord disease; Translations: [Disease of spinal cord, unspecified] Onset: 5 04-22-2014 Chronic Other nutritional; endocrine; and metabolic disorders (12 sources) Body mass index (BMI) 33.0-33.9, adult; Translations: [Body mass index (BMI) 40.0-44.9, adult] Onset: 4 Resolved: 5 03-08-2015 Chronic Other nutritional; endocrine; and metabolic disorders (14 sources) Obesity 01-04-2022 Chronic Other nutritional; endocrine; and metabolic disorders (16 sources) Hypomagnesemia; Translations: [Hypomagnesemia] 04-16-2024 Chronic Other upper respiratory infections (1 source) Chronic sinusitis; Translations: [Sinusitis, chronic] 01-03-2015 Chronic Other upper respiratory infections (2 sources) Acute sinusitis; Translations: [Acute sinusitis] 03-19-2006 Episodic Skin and subcutaneous tissue infections (19 sources) Cellulitis; Translations: [Cellulitis, unspecified] 09-25-2022 Episodic Spondylosis; intervertebral disc disorders; other back problems (1 source) Cervical spondylosis without myelopathy; Translations: [Spondylosis without myelopathy or radiculopathy, cervical region] 08-13-2024 Chronic Spondylosis; intervertebral disc disorders; other back problems (20 sources) Disorder of right sciatic nerve; Translations: [Sciatica, right side] Onset: 4 04-08-2024 Episodic Sprains and strains (8 sources) Strain of neck muscle; Translations: [Strain of muscle, fascia and tendon at neck level, initial encounter] 03-04-2024 Episodic Superficial injury; contusion (8 sources) Injury of forehead; Translations: [Contusion of other part of head, initial encounter] 03-04-2024 Episodic Syncope (20 sources) Syncope; Translations: [Syncope and collapse] 04-18-2021 Episodic Unclassified (2 sources) F/U in 2 weeks after discharge from [facility] Unclassified (1 source) Established Patient Onset: 5 Unclassified (2 sources) Low back pain, unspecified; Translations: [Low back pain, unspecified] Onset: 5 Urinary tract infections (20 sources) Acute urinary tract infection; Translations: [Urinary tract infection, site not specified] 04-18-2021 Episodic Past or Other Problems Problem Classification Problem Date Documented Da te Episodic/Chronic Allergic reactions (6 sources) Contact dermatitis; Translations: [Unspecified contact dermatitis, unspecified cause] Onset: 9 01-18-2009 Episodic Biliary tract disease (6 sources) Chronic cholecystitis with calculus; Translations: [Calculus of gallbladder with chronic cholecystitis without obstruction] Onset: 6 11-21-2015 Episodic Cardiac dysrhythmias (3 sources) Palpitations; Translations: [Palpitations] Onset: 2 02-03-2012 Episodic Disorders of lipid metabolism (6 sources) Hyperlipidemia; Translations: [Hyperlipidemia, unspecified] Onset: 5 Resolved: 3 07-30-2012 Chronic Gastroduodenal ulcer (except hemorrhage) (6 sources) Gastric ulcer without hemorrhage AND without perforation; Translations: [Gastric ulcer, unspecified as acute or chronic, without hemorrhage or perforation] Onset: 6 Resolved: 6 05-11-2015 Chronic Gastrointestinal hemorrhage (20 sources) Gastrointestinal hemorrhage; Translations: [Gastrointestinal hemorrhage, unspecified] Onset: 5 04-07-2019 Episodic Headache; including migraine (1 source) Headache; including migraine Hemorrhoids (6 sources) Internal hemorrhoids; Translations: [Other hemorrhoids] Onset: 5 10-09-2023 Episodic Malaise and fatigue (20 sources) Asthenia; Translations: [Other malaise] Onset: 5 04-16-2024 Episodic Other acquired deformities (8 sources) Spondylolisthesis, grade 3; Translations: [Spondylolisthesis, site unspecified] Onset: 5 07-21-2024 Episodic Other acquired deformities (1 source) Spondylolisthesis, site unspecified; Translations: [Spondylolisthesis, grade 3] Onset: 5 Episodic Other circulatory disease (20 sources) History of cerebrovascular accident; Translations: [Personal history of transient ischemic attack (TIA), and cerebral infarction without residual deficits] Onset: 0 06-03-2022 Episodic Comment on above: Moderate atrophy and periventricular white matter ischemic changes with old infarct in left temporal lobe. per CT 03/2019 Other connective tissue disease (6 sources) Muscle pain; Translations: [Myalgia and myositis, unspecified] Onset: 6 10-09-2023 Episodic Other connective tissue disease (6 sources) Tibialis tendinitis; Translations: [Posterior tibial tendinitis, unspecified leg] Onset: 8 01-18-2009 Episodic Other connective tissue disease (6 sources) Muscle weakness; Translations: [Muscle weakness (generalized)] Onset: 5 07-07-2014 Episodic Other connective tissue disease (6 sources) Ischial bursitis ; Translations: [Other bursitis of hip, right hip] Onset: 6 04-20-2015 Episodic Other disorders of stomach and duodenum (6 sources) Gastroparesis; Translations: [Gastroparesis] Onset: 4 09-25-2022 Episodic Other fractures (6 sources) Closed fracture lumbar vertebra, spondylolysis; Translations: [Fatigue fracture of vertebra, lumbar region, initial encounter for fracture] Onset: 5 04-22-2014 Episodic Other fractures (2 sources) Wedge compression fracture of first lumbar vertebra, initial encounter for closed fracture; Translations: [Wedge compression fracture of first lumbar vertebra, initial encounter for closed fracture] Onset: 5 Episodic Other gastrointestinal disorders (20 sources) Constipation; Translations: [Constipation, unspecified] Onset: 5 Resolved: 2 03-12-2022 Episodic Other gastrointestinal disorders (10 sources) Diarrhea, unspecified; Translations: [Diarrhea] Onset: 4 06-07-2022 Episodic Other gastrointestinal disorders (1 source) Functional diarrhea; Translations: [Functional diarrhea] Onset: 4 Episodic Other injuries and conditions due to external causes (6 sources) Angioedema; Translations: [Angioneurotic edema, initial encounter] Onset: 5 03-26-2021 Episodic Other injuries and conditions due to external causes (1 source) Unspecified injury of head, initial encounter; Translations: [Unspecified injury of head, initial encounter] Onset: 4 Episodic Other lower respiratory disease (3 sources) Dyspnea; Translations: [Shortness of breath] Onset: 2 02-03-2012 Episodic Other nervous system disorders (6 sources) Paresthesia of hand ; Translations: [Anesthesia of skin] Onset: 4 12-14-2013 Episodic Other nervous system disorders (12 sources) Abnormal gait; Translations: [Unsteadiness on feet] Onset: 4 12-14-2013 Episodic Other nervous system disorders (6 sources) Impairment of balance; Translations: [Other abnormalities of gait and mobility] Onset: 6 10-12-2015 Episodic Other nervous system disorders (2 sources) Anesthesia of skin; Translations: [Anesthesia of skin] Onset: 4 Episodic Other non-traumatic joint disorders (1 source) Pain in left knee; Translations: [Pain in left knee] Onset: 4 Episodic Other nutritional; endocrine; and metabolic disorders (6 sources) Body mass index 40+ - severely obese; Translations: [Morbid (severe) obesity due to excess calories] Resolved: 6 01-25-2016 Chronic Other screening for suspected conditions (not mental disorders or infectious disease) (6 sources) Patient encounter status; Translations: [Encounter for screening for malignant neoplasm of colon] Onset: 5 10-06-2014 Episodic Pathological fracture (16 sources) Pathological fracture of vertebra due to osteoporosis; Translations: [Age-related osteoporosis with current pathological fracture, vertebra(e), initial encounter for fracture] Onset: 5 04-13-2024 Episodic Residual codes; unclassified (1 source) Asymptomatic menopausal state; Translations: [Asymptomatic menopausal state] Onset: 4 Episodic Unclassified (3 sources) FH: Hypertension; Translations: [Family history of ischemic heart disease and other diseases of the circulatory system] 02-10-2014 Episodic Unclassified (1 source) left eye laser correction 02-27-2006 Unclassified (1 source) Pregnancies (); Translations: [Pregnancies ()] 02-26-2006 Unclassified (1 source) Viral infection (20 sources) Disease caused by 2019-nCoV; Translations: [COVID-19] Onset: 2 01-04-2022 Episodic Results Test Name Value Interpretation Reference Range Facility [facility] 09-07-2024 [facility] Telephone (ENDOMN) LIZETTE DAVIES Teri ([id number]) 1945 F Date Time Provider Department 09/07/24 AJAY GRANT During your visit today, we recorded the following information about you: Allergies As of Date: 09/07/2024 Noted Allergy Reaction LISINOPRIL 01/23/2012 7 - [...] by: Marybel Crespo MA - Fully Assessed Primary Visit Diagnosis:Age-related osteoporosis with current pathological fracture, initial encounter [M80.00XA] Order(s):zoledronic acid (RECLAST) 5 mg/100 mL PREMIX piggybackInject 100 mL intravenously one time only for 1 dose.Disp: 100 mLRfl: 0 Prescriptions as of 09/07/2024 - zoledronic acid (RECLAST) 5 mg/100 mL PREMIX piggyback Inject 100 mL intravenously one time only for 1 dose. - romosozumab-aqqg (EVENITY) 105 mg/1.17 mL syrg [...] by mouth once daily. - COMPOUNDED PRESCRIPTION [employer] defense 17 drops daily and working up to 60 drops daily (in divided doses). Serving size 30 drops. 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 Dx: Bilat sprained ankles, gait instability. - acetaminophen (TYLENOL EXTRA STRENGTH) 500 mg tablet Take 1 tablet by mouth every 6 hours as needed for Pain. - Magnesium 250 mg tab Take 1,000 mg by mouth. - MULTIVITAMIN TAB Take one(1) tablet daily. Problem List As Of Date 09/07/2024 Noted Resolved Essential hypertension [I10] 02/06/2005 Malaise and fatigue [R53.81, R53.83] 02/27/2005 Other and unspecified hyperlipidemia [E78.5] 02/27/2005 07/30/2012 INT HEMORRHOID W/O COMPL [K64.8] 03/08/2005 Unspecified constipation [K59.00] 03/08/2005 02/19/2012 GASTROINTEST HEMORR NOS [K92.2] 03/08/2005 MYALGIA AND MYOSITIS NOS [[id number]] 09/02/2005 CONGENITAL PES PLANUS [Q66.50] 06/29/2007 Tibialis [...] 05/09/2016 Prescriptions ordered this encounter Disp Refills (more content not included)... Normal [facility] Absolute lymphocyte countOrd ered By: Audra Drake on 08-31-2024 Lymphocytes Auto (Unsp spec) [#/Vol] 1.73 10*3/uL 0.83-4.51 [facility] Anion gap in Serum or Plasma Ordered By: Audra Drake on 08-31-2024 Anion gap [Moles/Vol] 10 mmol/L 5-15 [facility] Automated lymphocyte count a s percentage of total leukocytesOrdered By: Audra Drake on 08-31-2024 Lymphocytes/100 WBC Auto (Unsp spec) 27.5 % 19-41 [facility] BUN/creatinine ratioOrdered By: Audra Drake on 08-31-2024 Urea nitrogen/Creatinine [Mass ratio] 20.3 mg/mg High 10-20 [facility] Basophil percentageOrdered B y: Audra Drake on 08-31-2024 Basophils/100 WBC (Bld) 0.6 % 0-1 [facility] Carbon dioxide, total [Moles /volume] in Central venous bloodOrdered By: Audra Drake on 08-31-2024 CO2 [Moles/Vol] 24.3 mmol/L 21.0-32.0 [facility] Chloride assayOrdered By: Dimitris Drake on 08-31-2024 Chloride [Moles/Vol] 106 mmol/L 98-108 [facility] Eosinophil percentageOrdered By: Audra Drake on 08-31-2024 Eosinophils/100 WBC (Bld) 2.4 % 0-5 [facility] Erythrocyte distribution wid th ratioOrdered By: Audra Drake on 08-31-2024 Erythrocyte distribution width (RBC) [Ratio] 13.3 % 11.6-14.6 [facility] Erythrocyte distribution wid th standard deviationOrdered By: Audra Drake on 08-31-2024 Erythrocyte distribution width (RBC) [Ratio] 50.0 fl High 35.1-43.9 [facility] Glomerular filtration rate ( GFR) estimation/1.73 sq m using serum, plasma, or whole bOrdered By: Audra Drake on 08-31-2024 GFR/1.73 sq M.predicted among non-blacks MDRD (S/P/Bld) [Vol rate/Area] 91 mL/min/{1.73_m2} >60 [facility] Hematocrit Auto (Bld) [Volum e fraction]Ordered By: Audra Drake on 08-31-2024 Hematocrit (Bld) [Volume fraction] 34.9 % Low 37-47 [facility] Hemoglobin measurementOrdere d By: Audar Drake on 08-31-2024 Hemoglobin (Bld) [Mass/Vol] 11.0 g/dL Low 12.0-15. 0 [facility] Immature granulocytes/100 WB C Auto (Bld)Ordered By: Audra Drake on 08-31-2024 Immature granulocytes/100 WBC (Bld) 0.500 % 0.0-0.9 [facility] MCV (mean corpuscular volume ) determinationOrdered By: Audra Drake on 08-31-2024 MCV (RBC) [Entitic vol] 101.7 fL High 81-99 [facility] Mean corpuscular hemoglobin (MCH) determinationOrdered By: Audra Drake on 08-31-2024 MCH (RBC) [Entitic mass] 32.1 pg High 27.0-32.0 [facility] Monocyte percentageOrdered B y: Audra Drake on 08-31-2024 Monocytes/100 WBC (Bld) 9.4 % 0-10 [facility] Neutrophil percentageOrdered By: Audra Drake on 08-31-2024 Neutrophils/100 WBC (Bld) 59.6 % 47-70 [facility] Platelet countOrdered By: Dimitris Drake on 08-31-2024 Platelets (Bld) [#/Vol] 208 10*3/uL 150-450 [facility] Potassium measurement (mass/ volume)Ordered By: Audra Drake on 08-31-2024 Potassium (Unsp spec) [Mass/Vol] 4.2 mmol/L 3.3-5.1 [facility] RBC Auto (Bld) [#/Vol]Ordere d By: Audra Drake on 08-31-2024 RBC (Bld) [#/Vol] 3.43 10*6/uL Low 4.2-5.4 [facility] Serum creatinine measurement (mass/volume)Ordered By: Audra Drake on 08-31-2024 Creatinine [Mass/Vol] 0.63 mg/dL Low 0.70-1.20 [facility] Serum glucose measurement (m ass/volume)Ordered By: Audra Drake on 08-31-2024 Glucose [Mass/Vol] 81 mg/dL 70-99 [facility] Serum or plasma calcium gianluca urement (mass/volume)Ordered By: Audra Drake on 08-31-2024 Calcium [Mass/Vol] 8.8 mg/dL 7.6-11.0 [facility] Serum or plasma urea nitroge n measurement (mass/volume)Ordered By: Audra Drake on 08-31-2024 Urea nitrogen [Mass/Vol] 13 mg/dL 4-19 [facility] Sodium levelOrdered By: Cony Drake on 08-31-2024 Sodium [Moles/Vol] 141 mmol/L 133-145 [facility] White blood cell (WBC) count Ordered By: Audra Drake on 08-31-2024 WBC (Bld) [#/Vol] 6.3 10*3/uL 4.4-11.0 [facility] Absolute lymphocyte countOrd ered By: Nikia Henderson on 08-24-2024 Lymphocytes Auto (Unsp spec) [#/Vol] 1.65 10*3/uL 0.83-4.51 [facility] Anion gap in Serum or Plasma Ordered By: Nikia Henderson on 08-24-2024 Anion gap [Moles/Vol] 9 mmol/L 5-15 [facility] Automated lymphocyte count a s percentage of total leukocytesOrdered By: Nikia Henderson on 08-24-2024 Lymphocytes/100 WBC Auto (Unsp spec) 25.9 % 19-41 [facility] BUN/creatinine ratioOrdered By: Nikia Henderson on 08-24-2024 Urea nitrogen/Creatinine [Mass ratio] 20.0 mg/mg 10-20 [facility] Basophil percentageOrdered B y: Nikia Henderson on 08-24-2024 Basophils/100 WBC (Bld) 0.6 % 0-1 [facility] Carbon dioxide, total [Moles /volume] in Central venous bloodOrdered By: Nikia Henderson on 08-24-2024 CO2 [Moles/Vol] 26.4 mmol/L 21.0-32.0 [facility] Chloride assayOrdered By: Cecilia Henderson on 08-24-2024 Chloride [Moles/Vol] 107 mmol/L 98-108 [facility] Eosinophil percentageOrdered By: Nikia Henderson on 08-24-2024 Eosinophils/100 WBC (Bld) 2.5 % 0-5 [facility] Erythrocyte distribution wid th ratioOrdered By: [facility]ad[facility] Henderson on 08-24-2024 Erythrocyte distribution width (RBC) [Ratio] 13.1 % 11.6-14.6 [facility] Erythrocyte distribution wid th standard deviationOrdered By: Nikia Henderson on 08-24-2024 Erythrocyte distribution width (RBC) [Ratio] 49.5 fl High 35.1-43.9 [facility] Glomerular filtration rate ( GFR) estimation/1.73 sq m using serum, plasma, or whole bOrdered By: Catalinaokl[place] cityheladio Henderson on 08-24-2024 GFR/1.73 sq M.predicted among non-blacks MDRD (S/P/Bld) [Vol rate/Area] 80 mL/min/{1.73_m2} >60 [facility] Hematocrit Auto (Bld) [Volum e fraction]Ordered By: Nikia Henderson on 08-24-2024 Hematocrit (Bld) [Volume fraction] 36.3 % Low 37-47 [facility] Hemoglobin measurementOrdere d By: iNkia Henderson on 08-24-2024 Hemoglobin (Bld) [Mass/Vol] 11.7 g/dL Low 12.0-15. 0 [facility] Immature granulocytes/100 WB C Auto (Bld)Ordered By: Nikia Henderson on 08-24-2024 Immature granulocytes/100 WBC (Bld) 0.300 % 0.0-0.9 [facility] MCV (mean corpuscular volume ) determinationOrdered By: Nikia Henderson on 08-24-2024 MCV (RBC) [Entitic vol] 102.0 fL High 81-99 [facility] Mean corpuscular hemoglobin (MCH) determinationOrdered By: [place] cityheladio Henderson 08-24-2024 MCH (RBC) [Entitic mass] 32.9 pg High 27.0-32.0 [facility] Monocyte percentageOrdered B y: Nikia Henderson on 08-24-2024 Monocytes/100 WBC (Bld) 10.0 % 0-10 [facility] Neutrophil percentageOrdered By: Nikia Henderson on 08-24-2024 Neutrophils/100 WBC (Bld) 60.7 % 47-70 [facility] Platelet countOrdered By: Cecilia Henderson on 08-24-2024 Platelets (Bld) [#/Vol] 227 10*3/uL 150-450 [facility] Potassium measurement (mass/ volume)Ordered By: Nikia Cristobalromi on 08-24-2024 Potassium (Unsp spec) [Mass/Vol] 4.1 mmol/L 3.3-5.1 [facility] RBC Auto (Bld) [#/Vol]Ordere d By: Nikia Henderson on 08-24-2024 RBC (Bld) [#/Vol] 3.56 10*6/uL Low 4.2-5.4 [facility] Serum creatinine measurement (mass/volume)Ordered By: Nikia Cristobalromi on 08-24-2024 Creatinine [Mass/Vol] 0.76 mg/dL 0.70-1.20 [facility] Serum glucose measurement (m ass/volume)Ordered By: Nikia Cristobalromi on 08-24-2024 Glucose [Mass/Vol] 88 mg/dL 70-99 [facility] Serum or plasma calcium gianluca urement (mass/volume)Ordered By: Nikia Cristobalromi on 08-24-2024 Calcium [Mass/Vol] 9.0 mg/dL 7.6-11.0 [facility] Serum or plasma urea nitroge n measurement (mass/volume)Ordered By: Onelheladio Jainjanicevioletta on 08-24-2024 Urea nitrogen [Mass/Vol] 15 mg/dL 4-19 [facility] Sodium levelOrdered By: Catalina Henderson on 08-24-2024 Sodium [Moles/Vol] 142 mmol/L 133-145 [facility] White blood cell (WBC) count Ordered By: Nikia Cristobalromi on 08-24-2024 WBC (Bld) [#/Vol] 6.4 10*3/uL 4.4-11.0 [facility] 08-22-2024 [facility] Telephone (EMQ) LIZETTE DAVIES ([id number]) 1945 F Date Time Provider Department 08/22/24 AJAY GRANT EMQ During your visit today, we recorded the following information about you: Mary Borden 08/22/2024 10:02 AM Signed Dear Provider, Your patient's medication Evenity 210 mg was denied. Denial letters are sent directly to the patient and at times to the healthcare providers. If we receive a denial letter, it will be indexed for your review. If you want to appeal the decision. Please submit your request via staff message to the Jor[employer] Appeals Pool ([id number]). You can find templates listed below to support your appeal in apstrata (Epic drop down, select patient care, select [...] GRIFFIN Letter of Medical Necessity Jorje GRIFFIN [place] Mary Prior Sql Data Analyst III Endocrinology AND Metabolism [place] Letter scanned into chart Allergies As of [...] mouth once daily. - COMPOUNDED PRESCRIPTION Viki Shoka.me max 17 drops daily and working up to 60 drops daily (in divided doses). Serving size 30 drops. 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 Dx: Bilat sprained ankles, gait instability. [...] NOS [K92.2] 03/08/2005 MYALGIA AND MYOSITIS NOS [WCE0842] 09/02/2005 CONGENITAL PES PLANUS [Q66.50] 06/29/2007 Tibialis Tendinitis [M76.829] 10/19/2007 Generalized Osteoarthrosis, Unspecified Site [M*04/05/2008 Contact Dermatitis and Other Eczema, due to Uns*04/05/2008 Morbid obesity with BMI of 40.0-44.9, adult (HC* 01/25/2016 Low back pain [M54.50] 12/14/2013 Numbness and tingling in hands [R20.0, R20.2] 12/14/2013 Spinal cord lesion (HCC) [G95.9] 12/14/2013 Neck pain [M54.2] (more content not included)... Normal [facility] Absolute lymphocyte countOrd ered By: Nikia Henderson on 08-17-2024 Lymphocytes Auto (Unsp spec) [#/Vol] 1.53 10*3/uL 0.83-4.51 [facility] Anion gap in Serum or Plasma Ordered By: Nikia Henderson on 08-17-2024 Anion gap [Moles/Vol] 10 mmol/L 5-15 [facility] Automated lymphocyte count a s percentage of total leukocytesOrdered By: Nikia Henderson on 08-17-2024 Lymphocytes/100 WBC Auto (Unsp spec) 26.2 % 19-41 [facility] BUN/creatinine ratioOrdered By: Nikia Henderson on 08-17-2024 Urea nitrogen/Creatinine [Mass ratio] 20.9 mg/mg High 10-20 [facility] Basophil percentageOrdered B y: Nikia Henderson on 08-17-2024 Basophils/100 WBC (Bld) 0.9 % 0-1 [facility] Carbon dioxide, total [Moles /volume] in Central venous bloodOrdered By: Nikia Henderson on 08-17-2024 CO2 [Moles/Vol] 26.8 mmol/L 21.0-32.0 [facility] Chloride assayOrdered By: Cecilia Henderson on 08-17-2024 Chloride [Moles/Vol] 106 mmol/L 98-108 [facility] Eosinophil percentageOrdered By: Nikia Hnederson on 08-17-2024 Eosinophils/100 WBC (Bld) 2.1 % 0-5 [facility] Erythrocyte distribution wid th ratioOrdered By: Nikia Henderson on 08-17-2024 Erythrocyte distribution width (RBC) [Ratio] 13.4 % 11.6-14.6 [facility] Erythrocyte distribution wid th standard deviationOrdered By: Nikia Henderson on 08-17-2024 Erythrocyte distribution width (RBC) [Ratio] 50.2 fl High 35.1-43.9 [facility] Glomerular filtration rate ( GFR) estimation/1.73 sq m using serum, plasma, or whole bOrdered By: Nikia Henderson on 08-17-2024 GFR/1.73 sq M.predicted among non-blacks MDRD (S/P/Bld) [Vol rate/Area] 90 mL/min/{1.73_m2} >60 [facility] Hematocrit Auto (Bld) [Volum e fraction]Ordered By: Nikia Henderson on 08-17-2024 Hematocrit (Bld) [Volume fraction] 34.6 % Low 37-47 [facility] Hemoglobin measurementOrdere d By: Nikia Cristobaljanicevioletta on 08-17-2024 Hemoglobin (Bld) [Mass/Vol] 11.2 g/dL Low 12.0-15. 0 [facility] Immature granulocytes/100 WB C Auto (Bld)Ordered By: Nikia Jainjanicevioletta on 08-17-2024 Immature granulocytes/100 WBC (Bld) 0.500 % 0.0-0.9 [facility] MCV (mean corpuscular volume ) determinationOrdered By: Nikia Henderson on 08-17-2024 MCV (RBC) [Entitic vol] 102.7 fL High 81-99 [facility] Mean corpuscular hemoglobin (MCH) determinationOrdered By: Cecilialaura Jainjanicevioletta on 08-17-2024 MCH (RBC) [Entitic mass] 33.2 pg High 27.0-32.0 [facility] Monocyte percentageOrdered B y: Cecilialaura Jainjanicevioletta on 08-17-2024 Monocytes/100 WBC (Bld) 9.8 % 0-10 [facility] Neutrophil percentageOrdered By: Nikia Cristobaljanicevioletta on 08-17-2024 Neutrophils/100 WBC (Bld) 60.5 % 47-70 [facility] Platelet countOrdered By: Cecilia laura Cristobaljanicevioletta on 08-17-2024 Platelets (Bld) [#/Vol] 235 10*3/uL 150-450 [facility] Potassium measurement (mass/ volume)Ordered By: Catalinafedeheladio Jainjanicevioletta on 08-17-2024 Potassium (Unsp spec) [Mass/Vol] 3.9 mmol/L 3.3-5.1 [facility] RBC Auto (Bld) [#/Vol]Ordere d By: Onelheladio Jainjanicevioletta on 08-17-2024 RBC (Bld) [#/Vol] 3.37 10*6/uL Low 4.2-5.4 [facility] Serum creatinine measurement (mass/volume)Ordered By: Nikia Henderson on 08-17-2024 Creatinine [Mass/Vol] 0.66 mg/dL Low 0.70-1.20 [facility] Serum glucose measurement (m ass/volume)Ordered By: Nikia Henderson on 08-17-2024 Glucose [Mass/Vol] 84 mg/dL 70-99 [facility] Serum or plasma calcium gianluca urement (mass/volume)Ordered By: Nikia Henderson on 08-17-2024 Calcium [Mass/Vol] 9.1 mg/dL 7.6-11.0 [facility] Serum or plasma urea nitroge n measurement (mass/volume)Ordered By: Nikia Henderson on 08-17-2024 Urea nitrogen [Mass/Vol] 14 mg/dL 4-19 [facility] Sodium levelOrdered By: [facility] dalila Beatriz on 08-17-2024 Sodium [Moles/Vol] 143 mmol/L 133-145 [facility] White blood cell (WBC) count Or[facility]: [facility] on 08-17-2024 WBC (Bld) [#/Vol] 5.8 10*3/uL 4.4-11.0 [facility] CNOVon 08-13-2024 CNOV Office Visit (SPNSMN ) LIZETTE DAVIES ([id number]) 1945 F Date Time Provider Department 08/13/24 8:00 AM SETH CHOWDARY [facility] During your visit today, we recorded the following information about you: Pulse Respiration Blood pressure Weight 98/minute 18/minute 148/103 68 kg Height 1.473 m Seth Chowdary MD 08/13/2024 8:45 AM Signed SPINE SURGERY OUTPATIENT CONSULT This is an in-person visit. SERVICE DATE: 08/13/2024 PCP: Michael Snowden MD REFERRING PROVIDER: Jovanni Matthew [id number] [facility] [address] Lizette Davies is a 78 year old [...] walked recently and currently resides in a half-way facility. She does not report bowel or [...] type O+ Compression fracture of thoracic vertebra ([facility]) DDD (degenerative disc disease), cervical MRI scanned into [facility] January 11, 2014 ([facility]) DDD (degenerative disc disease), lumbosacral Essential hypertension, benign Dr. Daniels Gastroparesis Mild to moderate--test done 09/2014 Generalized OA Heart attack (HCC) Hemorrhage of gastrointestinal tract 01/2015 EGD "huge ulcer" 01/2015 all cleared 03/2015, Edis Angeles MD [...] DIAGNOSTIC 02/16/15 (more content not included)... Normal [facility] Absolute lymphocyte countOrd ered By: Nikia Henderson on 08-10-2024 Lymphocytes Auto (Unsp spec) [#/Vol] 1.61 10*3/uL 0.83-4.51 [facility] Anion gap in Serum or Plasma Ordered By: Nikia Henderson on 08-10-2024 Anion gap [Moles/Vol] 10 mmol/L -15 [facility] Automated lymphocyte count a s percentage of total leukocytesOrdered By: Nikia Henderson on 08-10-2024 Lymphocytes/100 WBC Auto (Unsp spec) 28.1 % 19-41 [facility] BUN/creatinine ratioOrdered By: Nikia Henderson on 08-10-2024 Urea nitrogen/Creatinine [Mass ratio] 19.5 mg/mg 10-20 [facility] Basophil percentageOrdered B y: Nikia Henderson on 08-10-2024 Basophils/100 WBC (Bld) 0.9 % 0-1 W [facility] Carbon dioxide, total [Moles /volume] in Central venous bloodOrdered By: Nikia Henderson on 08-10-2024 CO2 [Moles/Vol] 24.9 mmol/L 21.0-32.0 [facility] Chloride assayOrdered By: Cceilia Henderson on 08-10-2024 Chloride [Moles/Vol] 106 mmol/L 98-108 [facility] Eosinophil percentageOrdered By: Nikia Henderson on 08-10-2024 Eosinophils/100 WBC (Bld) 3.0 % 0-5 [facility] Erythrocyte distribution wid th ratioOrdered By: Nikia Henderson on 08-10-2024 Erythrocyte distribution width (RBC) [Ratio] 13.6 % 11.6-14.6 [facility] Erythrocyte distribution wid th standard deviationOrdered By: Nikia Henderson on 08-10-2024 Erythrocyte distribution width (RBC) [Ratio] 51.5 fl High 35.1-43.9 [facility] Glomerular filtration rate ( GFR) estimation/1.73 sq m using serum, plasma, or whole bOrdered By: Nikia Henderson on 08-10-2024 GFR/1.73 sq M.predicted among non-blacks MDRD (S/P/Bld) [Vol rate/Area] 92 mL/min/{1.73_m2} >60 [facility] Hematocrit Auto (Bld) [Volum e fraction]Ordered By: Nikia Henderson on 08-10-2024 Hematocrit (Bld) [Volume fraction] 35.1 % Low 37-47 [facility] Hemoglobin measurementOrdere d By: Nikia Henderson on 08-10-2024 Hemoglobin (Bld) [Mass/Vol] 11.3 g/dL Low 12.0-15. 0 [facility] Immature granulocytes/100 WB C Auto (Bld)Ordered By: Nikia Henderson on 08-10-2024 Immature granulocytes/100 WBC (Bld) 0.200 % 0.0-0.9 [facility] MCV (mean corpuscular volume ) determinationOrdered By: Nikia Henderson on 08-10-2024 MCV (RBC) [Entitic vol] 103.2 fL High 81-99 [facility] Mean corpuscular hemoglobin (MCH) determinationOrdered By: Nikia Henderson on 08-10-2024 MCH (RBC) [Entitic mass] 33.2 pg High 27.0-32.0 [facility] Monocyte percentageOrdered B y: Nikia Henderson on 08-10-2024 Monocytes/100 WBC (Bld) 9.3 % 0-10 W [facility] Neutrophil percentageOrdered By: Nikia Henderson on 08-10-2024 Neutrophils/100 WBC (Bld) 58.5 % 47-70 [facility] Platelet countOrdered By: Cecilia guanakoterra Henderson on 08-10-2024 Platelets (Bld) [#/Vol] 233 10*3/uL 150-450 [facility] Potassium measurement (mass/ volume)Ordered By: Nikia Henderson on 08-10-2024 Potassium (Unsp spec) [Mass/Vol] 4.0 mmol/L 3.3-5.1 [facility] RBC Auto (Bld) [#/Vol]Ordere d By: Nikia Henderson on 08-10-2024 RBC (Bld) [#/Vol] 3.40 10*6/uL Low 4.2-5.4 [facility] Serum creatinine measurement (mass/volume)Ordered By: Nikia Henderson on 08-10-2024 Creatinine [Mass/Vol] 0.59 mg/dL Low 0.70-1.20 [facility] Serum glucose measurement (m ass/volume)Ordered By: Nikia Henderson on 08-10-2024 Glucose [Mass/Vol] 80 mg/dL 70-99 [facility] Serum or plasma calcium gianluca urement (mass/volume)Ordered By: Nikia Henderson on 08-10-2024 Calcium [Mass/Vol] 9.0 mg/dL 7.6-11.0 [facility] Serum or plasma urea nitroge n measurement (mass/volume)Ordered By: Nikia Henderson on 08-10-2024 Urea nitrogen [Mass/Vol] 11 mg/dL 4-19 [facility] Sodium levelOrdered By: Cecilia dalilaangela Beatriz on 08-10-2024 Sodium [Moles/Vol] 141 mmol/L 133-145 [facility] White blood cell (WBC) count Ordered By: Nikia Henderson on 08-10-2024 WBC (Bld) [#/Vol] 5.7 10*3/uL 4.4-11.0 [facility] Absolute lymphocyte countOrd ered By: Audra Drake on 08-03-2024 Lymphocytes Auto (Unsp spec) [#/Vol] 1.37 10*3/uL 0.83-4.51 [facility] Anion gap in Serum or Plasma Ordered By: Audra Drake on 08-03-2024 Anion gap [Moles/Vol] 8 mmol/L 5-15 [facility] Automated lymphocyte count a s percentage of total leukocytesOrdered By: Audra Drake on 08-03-2024 Lymphocytes/100 WBC Auto (Unsp spec) 23.5 % 19-41 [facility] BUN/creatinine ratioOrdered By: Audra Drake on 08-03-2024 Urea nitrogen/Creatinine [Mass ratio] 18.8 mg/mg 10-20 [facility] Basophil percentageOrdered B y: Audra Drake on 08-03-2024 Basophils/100 WBC (Bld) 0.9 % 0-1 [facility] Bilirubin directOrdered By: Audra Drake on 08-03-2024 Bilirubin.direct [Mass/Vol] 0.10 mg/dL 0.00-0.3 0 [facility] Bilirubin, totalOrdered By: Audra Drake on 08-03-2024 Bilirubin [Mass/Vol] 0.17 mg/dL 0.00-1.30 [facility] Carbon dioxide, total [Moles /volume] in Central venous bloodOrdered By: Audra Drake on 08-03-2024 CO2 [Moles/Vol] 24.9 mmol/L 21.0-32.0 [facility] Chloride assayOrdered By: Dimitris Drake on 08-03-2024 Chloride [Moles/Vol] 107 mmol/L 98-108 [facility] Eosinophil percentageOrdered By: Audra Drake on 08-03-2024 Eosinophils/100 WBC (Bld) 2.6 % 0-5 [facility] Erythrocyte distribution wid th ratioOrdered By: Audra Drake on 08-03-2024 Erythrocyte distribution width (RBC) [Ratio] 13.9 % 11.6-14.6 [facility] Erythrocyte distribution wid th standard deviationOrdered By: Audra Drake on 08-03-2024 Erythrocyte distribution width (RBC) [Ratio] 52.4 fl High 35.1-43.9 [facility] Folate [Moles/volume] in Ser um or PlasmaOrdered By: Audra Drake on 08-03-2024 Folate [Moles/Vol] 36.80 ng/mL High 4.60-34.80 [facility] Glomerular filtration rate ( GFR) estimation/1.73 sq m using serum, plasma, or whole bOrdered By: Audra Drake on 08-03-2024 GFR/1.73 sq M.predicted among non-blacks MDRD (S/P/Bld) [Vol rate/Area] 87 mL/min/{1.73_m2} >60 [facility] Hematocrit Auto (Bld) [Volum e fraction]Ordered By: Audra Drake on 08-03-2024 Hematocrit (Bld) [Volume fraction] 33.6 % Low 37-47 [facility] Hemoglobin measurementOrdere d By: Audra Drake on 08-03-2024 Hemoglobin (Bld) [Mass/Vol] 11.0 g/dL Low 12.0-15. 0 [facility] Immature granulocytes/100 WB C Auto (Bld)Ordered By: Audra Drake on 08-03-2024 Immature granulocytes/100 WBC (Bld) 0.300 % 0.0-0.9 [facility] MCV (mean corpuscular volume ) determinationOrdered By: Audra Drake on 08-03-2024 MCV (RBC) [Entitic vol] 103.7 fL High 81-99 [facility] Magnesium measurement (mass/ volume)Ordered By: Audra Drkae on 08-03-2024 Magnesium (Unsp spec) [Mass/Vol] 2.3 mg/dL High 1.5-2.2 [facility] Mean corpuscular hemoglobin (MCH) determinationOrdered By: Audra Drake on 08-03-2024 MCH (RBC) [Entitic mass] 34.0 pg High 27.0-32.0 [facility] Monocyte percentageOrdered B y: Audra Drake on 08-03-2024 Monocytes/100 WBC (Bld) 10.3 % High 0-10 [facility] Neutrophil percentageOrdered By: Audra Drake on 08-03-2024 Neutrophils/100 WBC (Bld) 62.4 % 47-70 [facility] No Panel InformationOrdered By: Audra Drake on 08-03-2024 21 U/L <32 [facility] Platelet countOrdered By: Dimitris Drake on 08-03-2024 Platelets (Bld) [#/Vol] 243 10*3/uL 150-450 [facility] Potassium measurement (mass/ volume)Ordered By: Audra Drake on 08-03-2024 Potassium (Unsp spec) [Mass/Vol] 4.4 mmol/L 3.3-5.1 [facility] RBC Auto (Bld) [#/Vol]Ordere d By: Audra Drake on 08-03-2024 RBC (Bld) [#/Vol] 3.24 10*6/uL Low 4.2-5.4 [facility] Serum creatinine measurement (mass/volume)Ordered By: Audra Drake on 08-03-2024 Creatinine [Mass/Vol] 0.71 mg/dL 0.70-1.20 [facility] Serum globulin measurementOr dered By: Audra Drake on 08-03-2024 Globulin (S) [Mass/Vol] 3.0 g/dL 2.2-4.2 [facility] Serum glucose measurement (m ass/volume)Ordered By: Audra Drake on 08-03-2024 Glucose [Mass/Vol] 89 mg/dL 70-99 [facility] Serum or plasma alanine kim otransferase (ALT) measurementOrdered By: Audra Drake on 08-03-2024 ALT [Catalytic activity/Vol] 15 U/L <35 [facility] Serum or plasma albumin gianluca urement (mass/volume)Ordered By: Audra Drake on 08-03-2024 Albumin [Mass/Vol] 3.2 g/dL Low 3.4-4.8 [facility] Serum or plasma alkaline nikole sphatase measurementOrdered By: Audra Drake on 08-03-2024 ALP [Catalytic activity/Vol] 85 U/L 35-104 [facility] Serum or plasma calcium gianluca urement (mass/volume)Ordered By: Audra Drake on 08-03-2024 Calcium [Mass/Vol] 8.8 mg/dL 7.6-11.0 [facility] Serum or plasma urea nitroge n measurement (mass/volume)Ordered By: Audra Drake on 08-03-2024 Urea nitrogen [Mass/Vol] 13 mg/dL 4-19 [facility] Sodium levelOrdered By: Cony Drake on 08-03-2024 Sodium [Moles/Vol] 140 mmol/L 133-145 [facility] Total proteinOrdered By: Rubin Drake on 08-03-2024 Protein [Mass/Vol] 6.2 g/dL 5.9-8.4 [facility] Vitamin B12 ser/plasOrdered By: Audra Drake on 08-03-2024 Cobalamin (Vitamin B12) [Mass/Vol] 1509 pg/mL High 180-914 [facility] White blood cell (WBC) count Ordered By: Audra Drake on 08-03-2024 WBC (Bld) [#/Vol] 5.8 10*3/uL 4.4-11.0 [facility] Absolute lymphocyte countOrd ered By: uAdra Drake on 07-27-2024 Lymphocytes Auto (Unsp spec) [#/Vol] 1.57 10*3/uL 0.83-4.51 [facility] Anion gap in Serum or Plasma Ordered By: Audra Drake on 07-27-2024 Anion gap [Moles/Vol] 9 mmol/L 5-15 [facility] Automated lymphocyte count a s percentage of total leukocytesOrdered By: Audra Drake on 07-27-2024 Lymphocytes/100 WBC Auto (Unsp spec) 26.8 % 19-41 [facility] BUN/creatinine ratioOrdered By: Audra Drake on 07-27-2024 Urea nitrogen/Creatinine [Mass ratio] 19.1 mg/mg 10-20 [facility] Basophil percentageOrdered B y: Audra Drake on 07-27-2024 Basophils/100 WBC (Bld) 0.7 % 0-1 [facility] Carbon dioxide, total [Moles /volume] in Central venous bloodOrdered By: Audra Drake on 07-27-2024 CO2 [Moles/Vol] 24.8 mmol/L 21.0-32.0 [facility] Chloride assayOrdered By: Dimitris Drake on 07-27-2024 Chloride [Moles/Vol] 106 mmol/L 98-108 [facility] Eosinophil percentageOrdered By: Audra Drake on 07-27-2024 Eosinophils/100 WBC (Bld) 2.4 % 0-5 [facility] Erythrocyte distribution wid th ratioOrdered By: Audra Drake on 07-27-2024 Erythrocyte distribution width (RBC) [Ratio] 14.1 % 11.6-14.6 [facility] Erythrocyte distribution wid th standard deviationOrdered By: Audra Drake on 07-27-2024 Erythrocyte distribution width (RBC) [Ratio] 53.5 fl High 35.1-43.9 [facility] Glomerular filtration rate ( GFR) estimation/1.73 sq m using serum, plasma, or whole bOrdered By: Audra Drake on 07-27-2024 GFR/1.73 sq M.predicted among non-blacks MDRD (S/P/Bld) [Vol rate/Area] 90 mL/min/{1.73_m2} >60 [facility] Hematocrit Auto (Bld) [Volum e fraction]Ordered By: Audra Drake on 07-27-2024 Hematocrit (Bld) [Volume fraction] 33.1 % Low 37-47 [facility] Hemoglobin measurementOrdere d By: Audra Drake on 07-27-2024 Hemoglobin (Bld) [Mass/Vol] 11.0 g/dL Low 12.0-15. 0 [facility] Immature granulocytes/100 WB C Auto (Bld)Ordered By: Audra Drake on 07-27-2024 Immature granulocytes/100 WBC (Bld) 0.500 % 0.0-0.9 [facility] MCV (mean corpuscular volume ) determinationOrdered By: Audra Drake on 07-27-2024 MCV (RBC) [Entitic vol] 103.4 fL High 81-99 [facility] Mean corpuscular hemoglobin (MCH) determinationOrdered By: Audra Drake on 07-27-2024 MCH (RBC) [Entitic mass] 34.4 pg High 27.0-32.0 [facility] Monocyte percentageOrdered B y: Audra Drake on 07-27-2024 Monocytes/100 WBC (Bld) 10.4 % High 0-10 [facility] Neutrophil percentageOrdered By: Audra Drake on 07-27-2024 Neutrophils/100 WBC (Bld) 59.2 % 47-70 [facility] Platelet countOrdered By: Dimitris Drake on 07-27-2024 Platelets (Bld) [#/Vol] 282 10*3/uL 150-450 [facility] Potassium measurement (mass/ volume)Ordered By: Audra Drake on 07-27-2024 Potassium (Unsp spec) [Mass/Vol] 4.3 mmol/L 3.3-5.1 [facility] RBC Auto (Bld) [#/Vol]Ordere d By: Audra Drake on 07-27-2024 RBC (Bld) [#/Vol] 3.20 10*6/uL Low 4.2-5.4 [facility] Serum creatinine measurement (mass/volume)Ordered By: Audra Drake on 07-27-2024 Creatinine [Mass/Vol] 0.65 mg/dL Low 0.70-1.20 [facility] Serum glucose measurement (m ass/volume)Ordered By: Audra Drake on 07-27-2024 Glucose [Mass/Vol] 90 mg/dL 70-99 [facility] Serum or plasma calcium gianluca urement (mass/volume)Ordered By: Audra Drake on 07-27-2024 Calcium [Mass/Vol] 8.9 mg/dL 7.6-11.0 [facility] Serum or plasma urea nitroge n measurement (mass/volume)Ordered By: Audra Drake on 07-27-2024 Urea nitrogen [Mass/Vol] 12 mg/dL 4-19 [facility] Sodium levelOrdered By: Cony Drake on 07-27-2024 Sodium [Moles/Vol] 140 mmol/L 133-145 [facility] White blood cell (WBC) count Ordered By: Audra Drake on 07-27-2024 WBC (Bld) [#/Vol] 5.9 10*3/uL 4.4-11.0 [facility] CNPNon 07-22-2024 CNPN Telephone (ENDOMN) LIZETTE DAVIES ([id number]) 1945 F Date Time Provider Department 07/22/24 [...] mouth once daily. - COMPOUNDED PRESCRIPTION Viki Shoka.me defense 17 drops daily and working up to 60 drops daily (in divided doses). Serving size 30 drops. 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 Normal [facility] 1,25-dihydroxyvitamin D3 [Ma ss/Vol]on 07-21-2024 VIT D1,25 DIHYDROXY 34.0 pg/mL Normal 19.9-79.3 [place] Comment on above: Order Comment: Speci men Type: BLOOD SPECIMEN Ordering Facility: [facility] Address: [address] [place] [address] Performed By: #### 2 731-8, 01459-2, 3016-3, 2777-1 #### [facility] CLIA [id number] [address] [place] [address] [place] 25(OH)D3 [facility] 25-hydroxyvitamin D3 [Mass/Vol] 65.9 ng/mL Normal 31.0-80.0 [facility] Comment on above: Order Comment: Speci men Type: BLOOD SPECIMEN Ordering Facility: [facility] Address: [address] [place] [address] Result Comment: Clas sification of 25 [place] Vitamin D status: Deficiency/Insufficiency: < or = 30 ng/ml. Sufficiency/Optimal Levels: 31-80 ng/mL Toxicity: > 100 ng/mL. Test performed by chemiluminescent immunoassay. Performed By: #### 2 731-8, 74723-1, 3016-3, 2777-1 #### [facility] CLIA [id number] [address] [place] [address] [place] CNOVon 07-21-2024 CNOV Office Visit (ENDOMN ) KEKELIZETTE Williamson ([id number]) 1945 F Date Time Provider Department 07/21/24 3:00 PM AJAY GRANT ENDOMN During your visit today, we recorded the following information about you: Pulse Blood pressure Weight Height 98/minute 109/75 68 kg 1.473 m Bebo Martinez MA 07/21/2024 2:47 PM Signed Thank you for choosing the [facility] Department of Endocrinology, Diabetes and Metabolism. Did you know that you need to call 48 hours in advance of your scheduled visit, if you are unable to make your appointment? The [facility]in[facility] [place] thanks you for your commitment, because patients not showing to their appointment results in a lost opportunity for patients to receive [facility] health care at the [facility]. To Cancel an appointment, please choose one of the following: - Call the Appointment Call Center at [phone] - From [facility], Go to Appointments - Cancel Appts If cancelling, consider your need to reschedule to prevent further delays in your care. 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 Dx: Bilat sprained ankles, gait instability. acetaminophen (TYLENOL EXTRA STRENGTH) 500 mg tablet Take 1 tablet by mouth every 6 hours as needed for Pain. Magnesium 250 mg tab Take 1,000 mg by mouth. (Patient not taking: Reported on 07/21/2024) MULTIVITAMIN TAB Take one(1) tablet daily. (Patient not taking: Reported on 07/21/2024) No current fa (more content not included)... Normal [facility] CN Office Visit (REMS31 ) LIZETTE DAVIES ([id number]) 1945 F Date Time Provider Department 07/21/24 12:40 PM JOVANNI MATTHEW REMS31 During your visit today, we recorded the [...] fusion/decompression Chronic back pain but right before Omar fell with worsening LBP. With eventual went [...] transitional care- ECF - PT stopped at [facility]. Can walk some with walker- about [...] type O+ Compression fracture of thoracic vertebra ([facility]) DDD (degenerative disc disease), cervical MRI scanned into [facility] January 11, 2014 ([facility]) DDD (degenerative disc disease), lumbosacral Essential hypertension, benign Dr. Daniels Gastroparesis Mild to moderate--test done 09/2014 Generalized OA Heart attack (HCC) Hemorrhage of gastrointestinal tract 01/2015 EGD "huge ulcer" 01/2015 all cleared 03/2015, Edis Angeles MD [...] EGD ESOPHAGOGASTRODUODENO SCOPY TRANSORAL DIAGNOSTIC 02/16/15 EGD [facility] inpt ESOPHAGOGASTRODUODENO SCOPY TRANSORAL DIAGNOSTIC 05/11/15 EGD EXTRACTION, ERUPTED TOOTH OR EXPOSED ROOT (ELEVATION AND/OR FORCEPS REMOVAL) 1969's Wi (more content not included)... Normal [facility] metabolic 2000 panelon 07-21-2024 Albumin [Mass/Vol] 3.9 g/dL Normal 3.9-4.9 [facility] Comment on above: Order Comment: Speci men Type: BLOOD SPECIMEN Ordering Facility: [facility] Address: [address] [place] [address] Performed By: #### 2 731-8, 20735-6, 3016-3, 2777-1 #### [facility] CLIA [id number] [address] [place] [address] [place] ALP [Catalytic activity/Vol] 108 U/L Normal 34-123 [facility] Comment on above: Order Comment: Speci men Type: BLOOD SPECIMEN Ordering Facility: [facility] Address: [address] [place] [address] Performed By: #### 2 731-8, 31104-5, 3016-3, 2777-1 #### [facility] CLIA [id number] [address] [place] [address] [place] ALT [Catalytic activity/Vol] 13 U/L Normal 7-38 [facility] Comment on above: Order Comment: Speci men Type: BLOOD SPECIMEN Ordering Facility: [facility] Address: [address] [place] [address] Performed By: #### 2 731-8, 99547-6, 3016-3, 2777-1 #### [facility] CLIA [id number] [address] [place] [address] [place] Anion gap [Moles/Vol] 14 mmol/L Normal 8-15 [facility] Comment on above: Order Comment: Speci men Type: BLOOD SPECIMEN Ordering Facility: [facility] Address: [address] [place] [address] Performed By: #### 2 731-8, 52567-2, 3016-3, 2777-1 #### [facility] CLIA [id number] [address] [place] [address] [place] AST [Catalytic activity/Vol] 19 U/L Normal 13-35 [facility] Comment on above: Order Comment: Speci men Type: BLOOD SPECIMEN Ordering Facility: [facility] Address: [address] [place] [address] Performed By: #### 2 731-8, 93664-9, 3016-3, 2777-1 #### [facility] CLIA [id number] [address] [place] [address] [place] Bilirubin [Mass/Vol] 0.3 mg/dL Normal 0.2-1.3 [facility] Comment on above: Order Comment: Speci men Type: BLOOD SPECIMEN Ordering Facility: [facility] Address: [address] [place] [address] Performed By: #### 2 731-8, 58807-0, 3016-3, 2777-1 #### [facility] CLIA [id number] [address] [place] [address] [place] Calcium [Mass/Vol] 9.6 mg/dL Normal 8.5-10.2 [facility] Comment on above: Order Comment: Speci men Type: BLOOD SPECIMEN Ordering Facility: [facility] Address: [address] [place] [address] Performed By: #### 2 731-8, 47825-2, 3016-3, 2777-1 #### [facility] CLIA [id number] [address] [place] [address] [place] Chloride [Moles/Vol] 100 mmol/L Normal 98-107 [facility] Comment on above: Order Comment: Speci men Type: BLOOD SPECIMEN Ordering Facility: [facility] Address: [address] [place] [address] Performed By: #### 2 731-8, 14783-2, 3016-3, 2777-1 #### [facility] CLIA [id number] [address] [place] [address] [place] CO2 [Moles/Vol] 25 mmol/L Normal 22-30 [facility] Comment on above: Order Comment: Specsolitario pedro Type: BLOOD SPECIMEN Ordering Facility: [facility] Address: [address] [place] [address] Performed By: #### 2 731-8, 29818-9, 3016-3, 2777-1 #### [facility] CLIA [id number] [address] [place] [address] [place] Creatinine [Mass/Vol] 0.79 mg/dL Normal 0.58-0.96 [facility] Comment on above: Order Comment: Speci men Type: BLOOD SPECIMEN Ordering Facility: [facility] Address: [address] [place] [address] Performed By: #### 2 731-8, 90856-7, 6-3, 277-1 #### [facility] CLIA [id number] [address] [place] [address] [place] Creatinine and Glomerular filtration rate.predicted panel (S/P/Bld) 77 mL/min/1.73m??? Normal >=60 [facility] Comment on above: Order Comment: Iwona pedro Type: BLOOD SPECIMEN Ordering Facility: [facility] Address: [address] [place] [address] Result Comment: Brigida mated Glomerular Filtration Rate [...] accurately reflect actual GFR. Performed By: #### 2 731-8, 97829-3, 3016-3, 2777-1 #### [facility] CLIA [id number] [address] [place], [place] [address] [place] Glucose [Mass/Vol] 97 mg/dL Normal 74-99 [facility] Comment on above: Order Comment: Iwona pedro Type: BLOOD SPECIMEN Ordering Facility: [facility] Address: [address] [place] [address] Result Comment: The [place] [employer] (ADA) provides guidance for cutoff [...] Standards of Medical Care in Diabetes 2016, [place] [employer]. Diabetes Care. 2016.39(Suppl 1). Performed By: #### 2 731-8, 80107-4, 3016-3, 2777-1 #### [facility] CLIA [id number] [address] [place] [address] [place] Potassium [Moles/Vol] 5.1 mmol/L Normal 3.7-5.1 [facility] Comment on above: Order Comment: Iwona pedro Type: BLOOD SPECIMEN Ordering Facility: [facility] Address: [address] [place] [address] Performed By: #### 2 731-8, 03721-3, 3016-3, 2777-1 #### [facility] CLIA [id number] [address] [place] [address] [place] Protein [Mass/Vol] 7.0 g/dL Normal 6.3-8.0 [facility] Comment on above: Order Comment: Iwona pedor Type: BLOOD SPECIMEN Ordering Facility: [facility] Address: [address] [place] [address] Performed By: #### 2 731-8, 08010-7, 3016-3, 2777-1 #### [facility] CLIA [id number] [address] [place] [address] [place] Sodium [Moles/Vol] 139 mmol/L Normal 136-144 [facility] Comment on above: Order Comment: Speci men Type: BLOOD SPECIMEN Ordering Facility: [facility] Address: [address] [place] [address] Performed By: #### 2 731-8, 81532-0, 3016-3, 2777-1 #### [facility] CLIA [id number] [address] [place] [address] [place] Urea nitrogen [Mass/Vol] 14 mg/dL Normal 7-21 [facility] Comment on above: Order Comment: Speci men Type: BLOOD SPECIMEN Ordering Facility: [facility] Address: [address] [place] [address] Performed By: #### 2 731-8, 62923-8, 3016-3, 2777-1 #### [facility] CLIA [id number] [address] [place] [address] [place] PTH-Intact SerPl-mCncon - Parathyrin.intact [Mass/Vol] 20 pg/mL Normal 15-65 [facility] Comment on above: Order Comment: Speci men Type: BLOOD SPECIMEN Ordering Facility: [facility] Address: [address] [place] [address] Performed By: #### 2 731-8, 37847-1, 3016-3, 2777-1 #### [facility] CLIA [id number] [address] [place] [address] [place] Phosphate SerPl-mCncon 07-21 Phosphate [Mass/Vol] 3.9 mg/dL Normal 2.7-4.8 [facility] Comment on above: Order Comment: Speci men Type: BLOOD SPECIMEN Ordering Facility: [facility] Address: [address] [place] [address] Performed By: #### 2 731-8, 31504-5, 3016-3, 2777-1 #### [facility] CLIA [id number] [address] [place] [address] [place] TSH SerPl-aCncon 07-21-2024 TSH Qn 0.762 m[IU]/L Normal 0.270-4.200 [facility] Comment on above: Order Comment: Speci men Type: BLOOD SPECIMEN Ordering Facility: [facility] Address: [address] [place] [address] Performed By: #### 2 731-8, 08580-7, 3016-3, 2777-1 #### [facility] CLIA [id number] [address] [place] [address] [place] Absolute lymphocyte countOrd ered By: Nikia Henderson on 07-20-2024 Lymphocytes Auto (Unsp spec) [#/Vol] 1.71 10*3/uL 0.83-4.51 [facility] Anion gap in Serum or Plasma Ordered By: Nikia Henderson on 07-20-2024 Anion gap [Moles/Vol] 10 mmol/L 5-15 [facility] Automated lymphocyte count a s percentage of total leukocytesOrdered By: Nikia Henderson on 07-20-2024 Lymphocytes/100 WBC Auto (Unsp spec) 28.0 % 19-41 [facility] BUN/creatinine ratioOrdered By: Nikia Henderson on 07-20-2024 Urea nitrogen/Creatinine [Mass ratio] 16.1 mg/mg 10-20 [facility] Basophil percentageOrdered B y: Nikia Henderson on 07-20-2024 Basophils/100 WBC (Bld) 0.7 % 0-1 [facility] Carbon dioxide, total [Moles /volume] in Central venous bloodOrdered By: Nikia Henderson on 07-20-2024 CO2 [Moles/Vol] 23.8 mmol/L 21.0-32.0 [facility] Chloride assayOrdered By: Cecilia Henderson on 07-20-2024 Chloride [Moles/Vol] 104 mmol/L 98-108 [facility] Eosinophil percentageOrdered By: Nikia Henderson on 07-20-2024 Eosinophils/100 WBC (Bld) 2.1 % 0-5 [facility] Erythrocyte distribution wid th ratioOrdered By: Nikia Henderson on 07-20-2024 Erythrocyte distribution width (RBC) [Ratio] 13.7 % 11.6-14.6 [facility] Erythrocyte distribution wid th standard deviationOrdered By: Catalinaoklahoma cityheladio Henderson on 07-20-2024 Erythrocyte distribution width (RBC) [Ratio] 50.0 fl High 35.1-43.9 [facility] Glomerular filtration rate ( GFR) estimation/1.73 sq m using serum, plasma, or whole bOrdered By: guanakookl[place] cityheladio Henderson on 07-20-2024 GFR/1.73 sq M.predicted among non-blacks MDRD (S/P/Bld) [Vol rate/Area] 92 mL/min/{1.73_m2} >60 [facility] Hematocrit Auto (Bld) [Volum e fraction]Ordered By: Nikia Henderson on 07-20-2024 Hematocrit (Bld) [Volume fraction] 33.5 % Low 37-47 [facility] Hemoglobin measurementOrdere d By: Nikia Henderson on 07-20-2024 Hemoglobin (Bld) [Mass/Vol] 11.3 g/dL Low 12.0-15. 0 [facility] Immature granulocytes/100 WB C Auto (Bld)Ordered By: Nikia Henderson 07-20-2024 Immature granulocytes/100 WBC (Bld) 0.500 % 0.0-0.9 [facility] MCV (mean corpuscular volume ) determinationOrdered By: Nikia Henderson on 07-20-2024 MCV (RBC) [Entitic vol] 100.0 fL High 81-99 [facility] Mean corpuscular hemoglobin (MCH) determinationOrdered By: [facility] Hospital[facility]io Henderson on 07-20-2024 MCH (RBC) [Entitic mass] 33.7 pg High 27.0-32.0 [facility] Monocyte percentageOrdered B y: Nikia Henderson on 04-22-2025 Monocytes/100 WBC (Bld) 10.2 % High 0-10 [facility] Neutrophil percentageOrdered By: Nikia Henderson on 07-20-2024 Neutrophils/100 WBC (Bld) 58.5 % 47-70 [facility] Platelet countOrdered By: Cecilia guanakoterra Henderson on 07-20-2024 Platelets (Bld) [#/Vol] 276 10*3/uL 150-450 [facility] Potassium measurement (mass/ volume)Ordered By: Nikia Henderson on 07-20-2024 Potassium (Unsp spec) [Mass/Vol] 4.1 mmol/L 3.3-5.1 [facility] RBC Auto (Bld) [#/Vol]Ordere d By: Nikia Henderson on 07-20-2024 RBC (Bld) [#/Vol] 3.35 10*6/uL Low 4.2-5.4 [facility] Serum creatinine measurement (mass/volume)Ordered By: Nikia Henderson on 07-20-2024 Creatinine [Mass/Vol] 0.59 mg/dL Low 0.70-1.20 [facility] Serum glucose measurement (m ass/volume)Ordered By: Nikia Henderson on 07-20-2024 Glucose [Mass/Vol] 85 mg/dL 70-99 [facility] Serum or plasma calcium gianluca urement (mass/volume)Ordered By: Nikia Henderson on 07-20-2024 Calcium [Mass/Vol] 9.1 mg/dL 7.6-11.0 [facility] Serum or plasma urea nitroge n measurement (mass/volume)Ordered By: Nikia Henderson on 07-20-2024 Urea nitrogen [Mass/Vol] 9 mg/dL 4-19 [facility] Sodium levelOrdered By: Catalina connerling Beatriz on 07-20-2024 Sodium [Moles/Vol] 138 mmol/L 133-145 [facility] White blood cell (WBC) count Ordered By: Nikia Henderson on 07-20-2024 WBC (Bld) [#/Vol] 6.1 10*3/uL 4.4-11.0 [facility] Absolute lymphocyte countOrd ered By: Nikia Henderson on 07-13-2024 Lymphocytes Auto (Unsp spec) [#/Vol] 1.48 10*3/uL 0.83-4.51 [facility] Absolute neutrophil countOrd ered By: Nikia Henderson on 07-13-2024 Absolute neutrophil count 3.7 X10^3/uL 2.0-7.7 [facility] Anion gap [Moles/Vol]Ordered By: Nikia Henderson on 07-13-2024 Anion gap in Serum or Plasma 9 08-12 [facility] Anion gap in Serum or Plasma Ordered By: Nikia Henderson on 07-13-2024 Anion gap [Moles/Vol] 9 mmol/L 08-12 [facility] Automated lymphocyte count a s percentage of total leukocytesOrdered By: Nikia Henderson on 07-13-2024 Lymphocytes/100 WBC Auto (Unsp spec) 24.8 % 19-41 [facility] BUN/creatinine ratioOrdered By: Nikia Henderson on 07-13-2024 Urea nitrogen/Creatinine [Mass ratio] 19.7 mg/mg 10- [facility] BUN/creatinine ratio 19.7 RATIO 10-20 [facility] Basophil percentageOrdered B y: Nikia Henderson on 07-13-2024 Basophils/100 WBC (Bld) 0.8 % 0-1 [facility] Basophil percentage 0.8 % 0-1 [facility] Calcium [Mass/Vol]Ordered By : Nikia Henderson on 07-13-2024 Serum or plasma calcium measurement (mass/volume) 8.8 mg/dL 7.6-11.0 [facility] Carbon dioxide, total [Moles /volume] in Central venous bloodOrdered By: Nikia Henderson on 07-13-2024 CO2 [Moles/Vol] 24.1 mmol/L 21.0-32.0 [facility] Carbon dioxide, total [Moles/volume] in Central venous blood 24.1 mmol/L 21.0-32.0 [facility] Chloride assayOrdered By: Cecilia Henderson on 07-13-2024 Chloride [Moles/Vol] 108 mmol/L 98-108 [facility] Chloride assay 108 mmol/L 98-108 [facility] Creatinine [Mass/Vol]Ordered By: Nikia Henderson on 07-13-2024 Serum creatinine measurement (mass/volume) 0.59 mg/dL Low 0.70-1.20 [facility] Eosinophil percentageOrdered By: Nikia Henderson on 07-13-2024 Eosinophils/100 WBC (Bld) 2.9 % 0-5 [facility] Eosinophil percentage 2.9 % 0-5 [facility] Erythrocyte distribution wid th (RBC) [Ratio]Ordered By: Nikia Henderson on 07-13-2024 Erythrocyte distribution width ratio 14.2 % 11.6-14.6 [facility] Erythrocyte distribution width standard deviation 52.8 fl High 35.1-43.9 [facility] Erythrocyte distribution wid th ratioOrdered By: Nikia Henderson on 07-13-2024 Erythrocyte distribution width (RBC) [Ratio] 14.2 % 11.6-14.6 [facility] Erythrocyte distribution wid th standard deviationOrdered By: Nikia Henderson on 07-13-2024 Erythrocyte distribution width (RBC) [Ratio] 52.8 fl High 35.1-43.9 [facility] GFR/1.73 sq M.predicted viji g non-blacks MDRD (S/P/Bld) [Vol rate/Area]Ordered By: Nikia Henderson on 07-13-2024 Glomerular filtration rate (GFR) estimation/1.73 sq m using serum, plasma, or whole b 92 >60 [facility] Glomerular filtration rate ( GFR) estimation/1.73 sq m using serum, plasma, or whole bOrdered By: Nikia Henderson on 07-13-2024 GFR/1.73 sq M.predicted among non-blacks MDRD (S/P/Bld) [Vol rate/Area] 92 mL/min/{1.73_m2} >60 [facility] Glucose [Mass/Vol]Ordered By : Nikia Henderson on 07-13-2024 Serum glucose measurement (mass/volume) 84 mg/dL 70-99 [facility] Hematocrit Auto (Bld) [Volum e fraction]Ordered By: Nikia Henderson on 07-13-2024 Hematocrit (Bld) [Volume fraction] 32.8 % Low 37-47 [facility] Automated blood hematocrit (percentage) 32.8 % Low 37-47 [facility] Hemoglobin measurementOrdere d By: Nikia Henderson on 07-13-2024 Hemoglobin (Bld) [Mass/Vol] 10.8 g/dL Low 12.0-15. 0 [facility] Hemoglobin measurement 10.8 g/dL Low 12.0-15.0 [facility] Immature granulocytes/100 WB C Auto (Bld)Ordered By: Nikia Henderson on 07-13-2024 Immature granulocytes/100 WBC (Bld) 0.700 % 0.0-0.9 [facility] Automated immature granulocyte percentage 0.700 % 0.0-0.9 [facility] Lymphocytes Auto (Unsp spec) [#/Vol]Ordered By: Nikia Henderson on 07-13-2024 Absolute lymphocyte count 1.48 X10^3/uL 0.83-4. 51 [facility] Lymphocytes/100 WBC Auto (Un sp spec)Ordered By: Nikia Henderson on 07-13-2024 Automated lymphocyte count as percentage of total leukocytes 24.8 % 19-41 [facility] MCV (RBC) [Entitic vol]Order ed By: Nikia Henderson on 07-13-2024 MCV (mean corpuscular volume) determination 102.2 fL High 81-99 [facility] MCV (mean corpuscular volume ) determinationOrdered By: Nikia Henderson on 07-13-2024 MCV (RBC) [Entitic vol] 102.2 fL High 81-99 [facility] Mean corpuscular hemoglobin (MCH) determinationOrdered By: Nikia Henderson on 07-13-2024 MCH (RBC) [Entitic mass] 33.6 pg High 27.0-32.0 [facility] Mean corpuscular hemoglobin (MCH) determination 33.6 pg High 27.0-32.0 [facility] Mean corpuscular hemoglobin concentration (MCHC) determinationOrdered By: Nikia Henderson on 07-13-2024 Mean corpuscular hemoglobin concentration (MCHC) determination 32.9 g/dL 32-36 [facility] Mean platelet volume determi nationOrdered By: Nikia Henderson on 07-13-2024 Mean platelet volume determination 9.5 fl 6.2-12.0 [facility] Monocyte percentageOrdered B y: Nikia Henderson on 07-13-2024 Monocytes/100 WBC (Bld) 9.1 % 0-10 [facility] Monocyte percentage 9.1 % 0-10 [facility] Neutrophil percentageOrdered By: Nikia Henderson on 07-13-2024 Neutrophils/100 WBC (Bld) 61.7 % 47-70 [facility] Neutrophil percentage 61.7 % 47-70 [facility] Nucleated red blood cell per centageOrdered By: Nikia Henderson on 07-13-2024 Nucleated red blood cell percentage 0 % 0-5 [facility] Platelet countOrdered By: Cecilia guanakoterra Henderson on 07-13-2024 Platelets (Bld) [#/Vol] 267 10*3/uL 150-450 [facility] Platelet count 267 K/mm3 150-450 [facility] Potassium (Unsp spec) [Mass/ Vol]Ordered By: Nikia Henderson on 07-13-2024 Potassium measurement (mass/volume) 4.1 mmol/L 3.3-5.1 [facility] Potassium measurement (mass/ volume)Ordered By: Nikia Henderson on 07-13-2024 Potassium (Unsp spec) [Mass/Vol] 4.1 mmol/L 3.3-5.1 [facility] RBC Auto (Bld) [#/Vol]Ordere d By: Nikia Henderson on 07-13-2024 RBC (Bld) [#/Vol] 3.21 10*6/uL Low 4.2-5.4 [facility] Automated blood erythrocyte count 3.21 M/mm3 Low 4.2-5.4 [facility] Serum creatinine measurement (mass/volume)Ordered By: Nikia Henderson on 07-13-2024 Creatinine [Mass/Vol] 0.59 mg/dL Low 0.70-1.20 [facility] Serum glucose measurement (m ass/volume)Ordered By: Nikia Henderson on 07-13-2024 Glucose [Mass/Vol] 84 mg/dL 70-99 [facility] Serum or plasma calcium gianluca urement (mass/volume)Ordered By: Ceciliaguanakofedeheladio Jainjanicevioletta on 07-13-2024 Calcium [Mass/Vol] 8.8 mg/dL 7.6-11.0 [facility] Serum or plasma urea nitroge n measurement (mass/volume)Ordered By: Nikia Henderson on 07-13-2024 Urea nitrogen [Mass/Vol] 12 mg/dL - [facility] Sodium levelOrdered By: Catalina terra Beatriz on 07-13-2024 Sodium [Moles/Vol] 141 mmol/L 133-145 [facility] Sodium level 141 mmol/L 133-145 [facility] Urea nitrogen [Mass/Vol]Orde red By: Nikia Henderson on 07-13-2024 Serum or plasma urea nitrogen measurement (mass/volume) 12 mg/dL 4- [facility] White blood cell (WBC) count Ordered By: Cecilialaura Jainjanicevioletta on 07-13-2024 WBC (Bld) [#/Vol] 6.0 10*3/uL 4.4-11.0 [facility] White blood cell (WBC) count 6.0 K/mm3 4.4-11.0 [facility] CNPNon 07-08-2024 MICHAELN Telephone (REMS31) LIZETTE DAVIES ([id number]) 1945 F Date Time Provider Department 07/08/24 JOVANNI MATTHEW REMS31 During your visit today, we recorded the following information about you: Andressa Arias 07/08/2024 1:55 PM Signed New Patient appointment on 07/21/24 Received outside hospital, [facility] Radiology reports for x-rays and MRIs for [...] mouth once daily. - COMPOUNDED PRESCRIPTION Viki Shoka.me defense 17 drops daily and working up to 60 drops daily (in divided doses). Serving size 30 drops. 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 Tibialis [...] Encounter Status:Closed by JOVANNI MATTHEW on 07/26/24 [facility] Absolute lymphocyte countOrd ered By: Nikia Henderson on 07-06-2024 Lymphocytes Auto (Unsp spec) [#/Vol] 1.68 10*3/uL 0.83-4.51 [facility] Absolute neutrophil countOrd ered By: Nikia Henderson on 07-06-2024 Neutrophils (Bld) [#/Vol] 4.0 10*3/uL 2.0-7.7 [facility] Absolute neutrophil count 4.0 X10^3/uL 2.0-7.7 [facility] Anion gap [Moles/Vol]Ordered By: Nikia Henderson on 07-06-2024 Anion gap in Serum or Plasma 10 5- [facility] Anion gap in Serum or Plasma Ordered By: Nikia Henderson on 07-06-2024 Anion gap [Moles/Vol] 10 mmol/L 5-15 [facility] Automated lymphocyte count a s percentage of total leukocytesOrdered By: Nikia Henderson on 07-06-2024 Lymphocytes/100 WBC Auto (Unsp spec) 25.1 % 19-41 [facility] BUN/creatinine ratioOrdered By: Nikia Henderson on 07-06-2024 Urea nitrogen/Creatinine [Mass ratio] 23.7 mg/mg High 10-20 [facility] BUN/creatinine ratio 23.7 RATIO High 10-20 [facility] Basophil percentageOrdered B y: Nikia Henderson on 07-06-2024 Basophils/100 WBC (Bld) 0.9 % 0-1 [facility] Basophil percentage 0.9 % 0-1 [facility] Calcium [Mass/Vol]Ordered By : Nikia Henderson on 07-06-2024 Serum or plasma calcium measurement (mass/volume) 8.8 mg/dL 7.6-11.0 [facility] Carbon dioxide, total [Moles /volume] in Central venous bloodOrdered By: Nikia Henderson on 07-06-2024 CO2 [Moles/Vol] 22.4 mmol/L 21.0-32.0 [facility] Carbon dioxide, total [Moles/volume] in Central venous blood 22.4 mmol/L 21.0-32.0 [facility] Chloride assayOrdered By: Cecilia Henderson on 07-06-2024 Chloride [Moles/Vol] 108 mmol/L 98-108 [facility] Chloride assay 108 mmol/L 98-108 [facility] Creatinine [Mass/Vol]Ordered By: Nikia Henderson on 07-06-2024 Serum creatinine measurement (mass/volume) 0.76 mg/dL 0.70-1.20 [facility] Eosinophil percentageOrdered By: Nikia Henderson on 07-06-2024 Eosinophils/100 WBC (Bld) 2.5 % 0-5 [facility] Eosinophil percentage 2.5 % 0-5 [facility] Erythrocyte distribution wid th (RBC) [Ratio]Ordered By: Nikia Henderson on 07-06-2024 Erythrocyte distribution width ratio 14.3 % 11.6-14.6 [facility] Erythrocyte distribution width (RBC) [Entitic vol] 53.8 fL High 35.1-43.9 [facility] Erythrocyte distribution width standard deviation 53.8 fl High 35.1-43.9 [facility] Erythrocyte distribution wid th ratioOrdered By: Nikia Henderson on 07-06-2024 Erythrocyte distribution width (RBC) [Ratio] 14.3 % 11.6-14.6 [facility] Erythrocyte distribution wid th standard deviationOrdered By: Nikia Henderson on 07-06-2024 Erythrocyte distribution width (RBC) [Ratio] 53.8 fl High 35.1-43.9 [facility] GFR/1.73 sq M.predicted viji g non-blacks MDRD (S/P/Bld) [Vol rate/Area]Ordered By: Nikia Henderson on 07-06-2024 Estimated GFR (MDRD) Non-Af Amer 80 >60 [facility] Comment on above: mL/min/1.73m2 CKD-EP I Creatinine Equation (2020) Glomerular filtration rate (GFR) estimation/1.73 sq m using serum, plasma, or whole b 80 >60 [facility] Glomerular filtration rate ( GFR) estimation/1.73 sq m using serum, plasma, or whole bOrdered By: Nikia Henderson on 07-06-2024 GFR/1.73 sq M.predicted among non-blacks MDRD (S/P/Bld) [Vol rate/Area] 80 mL/min/{1.73_m2} >60 [facility] Glucose [Mass/Vol]Ordered By : Nikia Henderson on 07-06-2024 Serum glucose measurement (mass/volume) 90 mg/dL 70-99 [facility] Hematocrit Auto (Bld) [Volum e fraction]Ordered By: Nikia Henderson on 07-06-2024 Hematocrit (Bld) [Volume fraction] 34.4 % Low 37-47 [facility] Automated blood hematocrit (percentage) 34.4 % Low 37-47 [facility] Hemoglobin measurementOrdere d By: Nikia Henderson on 07-06-2024 Hemoglobin (Bld) [Mass/Vol] 11.1 g/dL Low 12.0-15. 0 [facility] Hemoglobin measurement 11.1 g/dL Low 12.0-15.0 [facility] Immature granulocytes/100 WB C Auto (Bld)Ordered By: Nikia Henderson on 07-06-2024 Immature granulocytes/100 WBC (Bld) 1.300 % High 0.0-0.9 [facility] Comment on above: IG% - Immature Granu locytes (promyelocytes, myelocytes and metamyelocytes) > 1% indicates that a LEFT SHIFT is Present. Automated immature granulocyte percentage 1.300 % High 0.0-0.9 [facility] Lymphocytes Auto (Unsp spec) [#/Vol]Ordered By: Nikia Henderson on 07-06-2024 Lymphocytes (Bld) [#/Vol] 1.68 10*3/uL 0.83-4.5 1 [facility] Absolute lymphocyte count 1.68 X10^3/uL 0.83-4. 51 [facility] Lymphocytes/100 WBC Auto (Un sp spec)Ordered By: Nikia Henderson on 07-06-2024 Lymphocytes/100 WBC (Bld) 25.1 % [facility] Automated lymphocyte count as percentage of total leukocytes 25.1 % [facility] MCV (RBC) [Entitic vol]Order ed By: Nikia Henderson on 07-06-2024 MCV (mean corpuscular volume) determination 103.6 fL High 81-99 [facility] MCV (mean corpuscular volume ) determinationOrdered By: Nikia Henderson on 07-06-2024 MCV (RBC) [Entitic vol] 103.6 fL High 81-99 [facility] Mean corpuscular hemoglobin (MCH) determinationOrdered By: Nikia Henderson on 07-06-2024 MCH (RBC) [Entitic mass] 33.4 pg High 27.0-32.0 [facility] Mean corpuscular hemoglobin (MCH) determination 33.4 pg High 27.0-32.0 [facility] Mean corpuscular hemoglobin concentration (MCHC) determinationOrdered By: Nikia Henderson on 07-06-2024 MCHC (RBC) [Mass/Vol] 32.3 g/dL 32-36 [facility] Mean corpuscular hemoglobin concentration (MCHC) determination 32.3 g/dL -36 [facility] Mean platelet volume determi nationOrdered By: Nikia Henderson on 07-06-2024 Platelet mean volume (Bld) [Entitic vol] 9.4 fL 6.2-12.0 [facility] Mean platelet volume determination 9.4 fl 6.2-12.0 [facility] Monocyte percentageOrdered B y: Nikia Henderson on 07-06-2024 Monocytes/100 WBC (Bld) 10.8 % High 0-10 [facility] Monocyte percentage 10.8 % High 0-10 [facility] Neutrophil percentageOrdered By: Nikia Henderson on 07-06-2024 Neutrophils/100 WBC (Bld) 59.4 % 47-70 [facility] Neutrophil percentage 59.4 % 47-70 [facility] Nucleated red blood cell per centageOrdered By: Nikia Henderson on 07-06-2024 Nucleated RBC/100 WBC (Bld) [Ratio] 0 % 0-5 [facility] Nucleated red blood cell percentage 0 % 0-5 [facility] Platelet countOrdered By: Cecilia Henderson on 07-06-2024 Platelets (Bld) [#/Vol] 299 10*3/uL 150-450 [facility] Platelet count 299 K/mm3 150-450 [facility] Potassium (Unsp spec) [Mass/ Vol]Ordered By: Nikia Henderson on 07-06-2024 Potassium [Moles/Vol] 4.3 mmol/L 3.3-5.1 [facility] Potassium measurement (mass/volume) 4.3 mmol/L 3.3-5.1 [facility] Potassium measurement (mass/ volume)Ordered By: Nikia Henderson on 07-06-2024 Potassium (Unsp spec) [Mass/Vol] 4.3 mmol/L 3.3-5.1 [facility] RBC Auto (Bld) [#/Vol]Ordere d By: Nikia Henderson on 07-06-2024 RBC (Bld) [#/Vol] 3.32 10*6/uL Low 4.2-5.4 [facility] Automated blood erythrocyte count 3.32 M/mm3 Low 4.2-5.4 [facility] Serum creatinine measurement (mass/volume)Ordered By: Nikia Henderson on 07-06-2024 Creatinine [Mass/Vol] 0.76 mg/dL 0.70-1.20 [facility] Serum glucose measurement (m ass/volume)Ordered By: Nikia Henderson on 07-06-2024 Glucose [Mass/Vol] 90 mg/dL 70-99 [facility] Serum or plasma calcium gianluca urement (mass/volume)Ordered By: Nikia Henderson on 07-06-2024 Calcium [Mass/Vol] 8.8 mg/dL 7.6-11.0 [facility] Serum or plasma urea nitroge n measurement (mass/volume)Ordered By: Nikia Henderson on 07-06-2024 Urea nitrogen [Mass/Vol] 18 mg/dL 4- [facility] Sodium levelOrdered By: Catalina Henderson on 07-06-2024 Sodium [Moles/Vol] 140 mmol/L 133-145 [facility] Sodium level 140 mmol/L 133-145 [facility] Urea nitrogen [Mass/Vol]Orde red By: Nikia Henderson on 07-06-2024 Serum or plasma urea nitrogen measurement (mass/volume) 18 mg/dL 4- [facility] White blood cell (WBC) count Ordered By: Nikia Henderson on 07-06-2024 WBC (Bld) [#/Vol] 6.7 10*3/uL 4.4-11.0 [facility] White blood cell (WBC) count 6.7 K/mm3 4.4-11.0 [facility] Absolute lymphocyte countOrd ered By: Audra Drake on 06-29-2024 Lymphocytes Auto (Unsp spec) [#/Vol] 1.28 10*3/uL 0.83-4.51 [facility] Absolute neutrophil countOrd ered By: Audra Drake on 06-29-2024 Neutrophils (Bld) [#/Vol] 4.0 10*3/uL 2.0-7.7 [facility] Absolute neutrophil count 4.0 X10^3/uL 2.0-7.7 [facility] Anion gap [Moles/Vol]Ordered By: Audra Drake on 06-29-2024 Anion gap in Serum or Plasma 10 5-15 [facility] Anion gap in Serum or Plasma Ordered By: Audra Drake on 06-29-2024 Anion gap [Moles/Vol] 10 mmol/L 5-15 [facility] Automated lymphocyte count a s percentage of total leukocytesOrdered By: Audra Drake on 06-29-2024 Lymphocytes/100 WBC Auto (Unsp spec) 20.1 % 19-41 [facility] BUN/creatinine ratioOrdered By: Audra Drake on 06-29-2024 Urea nitrogen/Creatinine [Mass ratio] 18.5 mg/mg 10-20 [facility] BUN/creatinine ratio 18.5 RATIO 10-20 [facility] Basophil percentageOrdered B y: Audra Drake on 06-29-2024 Basophils/100 WBC (Bld) 0.9 % 0-1 [facility] Basophil percentage 0.9 % 0-1 [facility] Calcium [Mass/Vol]Ordered By : Audra Drake on 06-29-2024 Serum or plasma calcium measurement (mass/volume) 9.0 mg/dL 7.6-11.0 [facility] Carbon dioxide, total [Moles /volume] in Central venous bloodOrdered By: Audra Drake on 06-29-2024 CO2 [Moles/Vol] 21.5 mmol/L 21.0-32.0 [facility] Carbon dioxide, total [Moles/volume] in Central venous blood 21.5 mmol/L 21.0-32.0 [facility] Chloride assayOrdered By: Dimitris Drake on 06-29-2024 Chloride [Moles/Vol] 109 mmol/L High 98-108 [facility] Chloride assay 109 mmol/L High 98-108 [facility] Creatinine [Mass/Vol]Ordered By: Audra Drake on 06-29-2024 Serum creatinine measurement (mass/volume) 0.65 mg/dL Low 0.70-1.20 [facility] Eosinophil percentageOrdered By: Audra Drake on 06-29-2024 Eosinophils/100 WBC (Bld) 2.5 % 0-5 [facility] Eosinophil percentage 2.5 % 0-5 [facility] Erythrocyte distribution wid th (RBC) [Ratio]Ordered By: Audra Drake on 06-29-2024 Erythrocyte distribution width ratio 14.0 % 11.6-14.6 [facility] Erythrocyte distribution width (RBC) [Entitic vol] 51.9 fL High 35.1-43.9 [facility] Erythrocyte distribution width standard deviation 51.9 fl High 35.1-43.9 [facility] Erythrocyte distribution wid th ratioOrdered By: Audra Drake on 06-29-2024 Erythrocyte distribution width (RBC) [Ratio] 14.0 % 11.6-14.6 [facility] Erythrocyte distribution wid th standard deviationOrdered By: Audra Drake on 06-29-2024 Erythrocyte distribution width (RBC) [Ratio] 51.9 fl High 35.1-43.9 [facility] GFR/1.73 sq M.predicted viji g non-blacks MDRD (S/P/Bld) [Vol rate/Area]Ordered By: Audra Drake on 06-29-2024 Estimated GFR (MDRD) Non-Af Amer 90 >60 [facility] Comment on above: mL/min/1.73m2 CKD-EP I Creatinine Equation (2020) Glomerular filtration rate (GFR) estimation/1.73 sq m using serum, plasma, or whole b 90 >60 [facility] Glomerular filtration rate ( GFR) estimation/1.73 sq m using serum, plasma, or whole bOrdered By: Audra Drake on 06-29-2024 GFR/1.73 sq M.predicted among non-blacks MDRD (S/P/Bld) [Vol rate/Area] 90 mL/min/{1.73_m2} >60 [facility] Glucose [Mass/Vol]Ordered By : Audra Drake on 06-29-2024 Serum glucose measurement (mass/volume) 84 mg/dL 70-99 [facility] Hematocrit Auto (Bld) [Volum e fraction]Ordered By: Audra Drake on 04-01-2025 Hematocrit (Bld) [Volume fraction] 35.7 % Low 37-47 [facility] Automated blood hematocrit (percentage) 35.7 % Low 37-47 [facility] Hemoglobin measurementOrdere d By: Audra Drake on 06-29-2024 Hemoglobin (Bld) [Mass/Vol] 11.5 g/dL Low 12.0-15. 0 [facility] Hemoglobin measurement 11.5 g/dL Low 12.0-15.0 [facility] Immature granulocytes/100 WB C Auto (Bld)Ordered By: Audra Drake on 06-29-2024 Immature granulocytes/100 WBC (Bld) 1.100 % High 0.0-0.9 [facility] Comment on above: IG% - Immature Granu locytes (promyelocytes, myelocytes and metamyelocytes) > 1% indicates that a LEFT SHIFT is Present. Automated immature granulocyte percentage 1.100 % High 0.0-0.9 [facility] Lymphocytes Auto (Unsp spec) [#/Vol]Ordered By: Audra Drake on 06-29-2024 Lymphocytes (Bld) [#/Vol] 1.28 10*3/uL 0.83-4.5 1 [facility] Absolute lymphocyte count 1.28 X10^3/uL 0.83-4. 51 [facility] Lymphocytes/100 WBC Auto (Un sp spec)Ordered By: Audra Drake on 06-29-2024 Lymphocytes/100 WBC (Bld) 20.1 % 19- [facility] Automated lymphocyte count as percentage of total leukocytes 20.1 % -41 [facility] MCV (RBC) [Entitic vol]Order ed By: Audra Drake on 06-29-2024 MCV (mean corpuscular volume) determination 99.7 fL High 81-99 [facility] MCV (mean corpuscular volume ) determinationOrdered By: Audra Drake on 06-29-2024 MCV (RBC) [Entitic vol] 99.7 fL High 81-99 [facility] Mean corpuscular hemoglobin (MCH) determinationOrdered By: Audra Drake on 06-29-2024 MCH (RBC) [Entitic mass] 32.1 pg High 27.0-32.0 [facility] Mean corpuscular hemoglobin (MCH) determination 32.1 pg High 27.0-32.0 [facility] Mean corpuscular hemoglobin concentration (MCHC) determinationOrdered By: Audra Drake on 06-29-2024 MCHC (RBC) [Mass/Vol] 32.2 g/dL 32-36 [facility] Mean corpuscular hemoglobin concentration (MCHC) determination 32.2 g/dL 32-36 [facility] Mean platelet volume determi nationOrdered By: Audra Drake on 06-29-2024 Platelet mean volume (Bld) [Entitic vol] 9.5 fL 6.2-12.0 [facility] Mean platelet volume determination 9.5 fl 6.2-12.0 [facility] Monocyte percentageOrdered B y: Audra Drake on 06-29-2024 Monocytes/100 WBC (Bld) 12.3 % High 0-10 [facility] Monocyte percentage 12.3 % High 0-10 [facility] Neutrophil percentageOrdered By: Audra Drake on 06-29-2024 Neutrophils/100 WBC (Bld) 63.1 % 47-70 [facility] Neutrophil percentage 63.1 % 47-70 [facility] Nucleated red blood cell per centageOrdered By: Audra Drake on 06-29-2024 Nucleated RBC/100 WBC (Bld) [Ratio] 0 % 0-5 [facility] Nucleated red blood cell percentage 0 % 0-5 [facility] Platelet countOrdered By: Dimitris Drake on 06-29-2024 Platelets (Bld) [#/Vol] 307 10*3/uL 150-450 [facility] Platelet count 307 K/mm3 150-450 [facility] Potassium (Unsp spec) [Mass/ Vol]Ordered By: Audra Drake on 06-29-2024 Potassium [Moles/Vol] 4.4 mmol/L 3.3-5.1 [facility] Potassium measurement (mass/volume) 4.4 mmol/L 3.3-5.1 [facility] [facility] Potassium measurement (mass/ volume)Ordered By: Audra Drake on 06-29-2024 Potassium (Unsp spec) [Mass/Vol] 4.4 mmol/L 3.3-5.1 [facility] RBC Auto (Bld) [#/Vol]Ordere d By: Audra Drake on 06-29-2024 RBC (Bld) [#/Vol] 3.58 10*6/uL Low 4.2-5.4 [facility] Automated blood erythrocyte count 3.58 M/mm3 Low 4.2-5.4 [facility] Serum creatinine measurement (mass/volume)Ordered By: Audra Drake on 06-29-2024 Creatinine [Mass/Vol] 0.65 mg/dL Low 0.70-1.20 [facility] Serum glucose measurement (m ass/volume)Ordered By: Audra Drake on 06-29-2024 Glucose [Mass/Vol] 84 mg/dL 70-99 [facility] Serum or plasma calcium gianluca urement (mass/volume)Ordered By: Audra Drake on 06-29-2024 Calcium [Mass/Vol] 9.0 mg/dL 7.6-11.0 [facility] Serum or plasma urea nitroge n measurement (mass/volume)Ordered By: Audra Drake on 06-29-2024 Urea nitrogen [Mass/Vol] 12 mg/dL 4- [facility] Sodium levelOrdered By: Cony Drake on 06-29-2024 Sodium [Moles/Vol] 140 mmol/L 133-145 [facility] Sodium level 140 mmol/L 133-145 [facility] Urea nitrogen [Mass/Vol]Orde red By: Audra Drake on 06-29-2024 Serum or plasma urea nitrogen measurement (mass/volume) 12 mg/dL 4- [facility] White blood cell (WBC) count Ordered By: Audra Drake on 06-29-2024 WBC (Bld) [#/Vol] 6.4 10*3/uL 4.4-11.0 [facility] White blood cell (WBC) count 6.4 K/mm3 4.4-11.0 [facility] Absolute lymphocyte countOrd ered By: Audra Drake on 06-22-2024 Lymphocytes Auto (Unsp spec) [#/Vol] 1.15 10*3/uL 0.83-4.51 [facility] Absolute neutrophil countOrd ered By: Audra Drake on 06-22-2024 Neutrophils (Bld) [#/Vol] 4.9 10*3/uL 2.0-7.7 [facility] Absolute neutrophil count 4.9 X10^3/uL 2.0-7.7 [facility] Anion gap [Moles/Vol]Ordered By: Audra Drake on 06-22-2024 Anion gap in Serum or Plasma 11 5-15 [facility] Anion gap in Serum or Plasma Ordered By: Audra Drake on 06-22-2024 Anion gap [Moles/Vol] 11 mmol/L 5-15 [facility] Automated lymphocyte count a s percentage of total leukocytesOrdered By: Audra Drake on 06-22-2024 Lymphocytes/100 WBC Auto (Unsp spec) 16.2 % Low 19-41 [facility] BUN/creatinine ratioOrdered By: Audra Drake on 06-22-2024 Urea nitrogen/Creatinine [Mass ratio] 18.7 mg/mg 10-20 [facility] BUN/creatinine ratio 18.7 RATIO 10-20 [facility] Basophil percentageOrdered B y: Audra Drake on 06-22-2024 Basophils/100 WBC (Bld) 0.6 % 0-1 [facility] Basophil percentage 0.6 % 0-1 [facility] Calcium [Mass/Vol]Ordered By : Audra Drake on 06-22-2024 Serum or plasma calcium measurement (mass/volume) 8.6 mg/dL 7.6-11.0 [facility] Carbon dioxide, total [Moles /volume] in Central venous bloodOrdered By: Audra Drake on 06-22-2024 CO2 [Moles/Vol] 19.5 mmol/L Low 21.0-32.0 [facility] Carbon dioxide, total [Moles/volume] in Central venous blood 19.5 mmol/L Low 21.0-32.0 [facility] Chloride assayOrdered By: Dimitris Drake on 06-22-2024 Chloride [Moles/Vol] 107 mmol/L 98-108 [facility] Chloride assay 107 mmol/L 98-108 [facility] Creatinine [Mass/Vol]Ordered By: Audra Drake on 06-22-2024 Serum creatinine measurement (mass/volume) 0.78 mg/dL 0.70-1.20 [facility] Eosinophil percentageOrdered By: Audra Drake on 06-22-2024 Eosinophils/100 WBC (Bld) 2.3 % 0-5 [facility] Eosinophil percentage 2.3 % 0-5 [facility] Erythrocyte distribution wid th (RBC) [Ratio]Ordered By: Audra Drake on 06-22-2024 Erythrocyte distribution width ratio 13.9 % 11.6-14.6 [facility] Erythrocyte distribution width (RBC) [Entitic vol] 51.1 fL High 35.1-43.9 [facility] Erythrocyte distribution width standard deviation 51.1 fl High 35.1-43.9 [facility] Erythrocyte distribution wid th ratioOrdered By: Audra Drake on 06-22-2024 Erythrocyte distribution width (RBC) [Ratio] 13.9 % 11.6-14.6 [facility] Erythrocyte distribution wid th standard deviationOrdered By: Audra Drake on 06-22-2024 Erythrocyte distribution width (RBC) [Ratio] 51.1 fl High 35.1-43.9 [facility] GFR/1.73 sq M.predicted viji g non-blacks MDRD (S/P/Bld) [Vol rate/Area]Ordered By: Audra Drake on 06-22-2024 Estimated GFR (MDRD) Non-Af Amer 78 >60 [facility] Comment on above: mL/min/1.73m2 CKD-EP I Creatinine Equation (2020) Glomerular filtration rate (GFR) estimation/1.73 sq m using serum, plasma, or whole b 78 >60 [facility] Glomerular filtration rate ( GFR) estimation/1.73 sq m using serum, plasma, or whole bOrdered By: Audra Drake on 06-22-2024 GFR/1.73 sq M.predicted among non-blacks MDRD (S/P/Bld) [Vol rate/Area] 78 mL/min/{1.73_m2} >60 [facility] Glucose [Mass/Vol]Ordered By : Audra Drake on 06-22-2024 Serum glucose measurement (mass/volume) 91 mg/dL 70-99 [facility] Hematocrit Auto (Bld) [Volum e fraction]Ordered By: Audra Drake on 06-22-2024 Hematocrit (Bld) [Volume fraction] 35.7 % Low 37-47 [facility] Automated blood hematocrit (percentage) 35.7 % Low 37-47 [facility] Hemoglobin measurementOrdere d By: Audra Drake on 06-22-2024 Hemoglobin (Bld) [Mass/Vol] 11.6 g/dL Low 12.0-15. 0 [facility] Hemoglobin measurement 11.6 g/dL Low 12.0-15.0 [facility] Immature granulocytes/100 WB C Auto (Bld)Ordered By: Audar Drake on 06-22-2024 Immature granulocytes/100 WBC (Bld) 1.100 % High 0.0-0.9 [facility] Comment on above: IG% - Immature Granu locytes (promyelocytes, myelocytes and metamyelocytes) > 1% indicates that a LEFT SHIFT is Present. Automated immature granulocyte percentage 1.100 % High 0.0-0.9 [facility] Lymphocytes Auto (Unsp spec) [#/Vol]Ordered By: Audra Drake on 06-22-2024 Lymphocytes (Bld) [#/Vol] 1.15 10*3/uL 0.83-4.5 1 [facility] Absolute lymphocyte count 1.15 X10^3/uL 0.83-4. 51 [facility] Lymphocytes/100 WBC Auto (Un sp spec)Ordered By: Audra Drake on 06-22-2024 Lymphocytes/100 WBC (Bld) 16.2 % Low 19-41 [facility] Automated lymphocyte count as percentage of total leukocytes 16.2 % Low 19-41 [facility] MCV (RBC) [Entitic vol]Order ed By: Audra Drake on 06-22-2024 MCV (mean corpuscular volume) determination 100.3 fL High 81-99 [facility] MCV (mean corpuscular volume ) determinationOrdered By: Audra Drake on 06-22-2024 MCV (RBC) [Entitic vol] 100.3 fL High 81-99 [facility] Mean corpuscular hemoglobin (MCH) determinationOrdered By: Audra Drake on 06-22-2024 MCH (RBC) [Entitic mass] 32.6 pg High 27.0-32.0 [facility] Mean corpuscular hemoglobin (MCH) determination 32.6 pg High 27.0-32.0 [facility] Mean corpuscular hemoglobin concentration (MCHC) determinationOrdered By: Audra Drake on 06-22-2024 MCHC (RBC) [Mass/Vol] 32.5 g/dL 32-36 [facility] Mean corpuscular hemoglobin concentration (MCHC) determination 32.5 g/dL 32-36 [facility] Mean platelet volume determi nationOrdered By: Audra Drake on 06-22-2024 Platelet mean volume (Bld) [Entitic vol] 9.9 fL 6.2-12.0 [facility] Mean platelet volume determination 9.9 fl 6.2-12.0 [facility] Monocyte percentageOrdered B y: Audra Drake on 06-22-2024 Monocytes/100 WBC (Bld) 11.0 % High 0-10 [facility] Monocyte percentage 11.0 % High 0-10 [facility] Neutrophil percentageOrdered By: Audra Drake on 06-22-2024 Neutrophils/100 WBC (Bld) 68.8 % 47-70 [facility] Neutrophil percentage 68.8 % 47-70 [facility] Nucleated red blood cell per centageOrdered By: Audra Drake on 06-22-2024 Nucleated RBC/100 WBC (Bld) [Ratio] 0 % 0-5 [facility] Nucleated red blood cell percentage 0 % 0-5 [facility] Platelet countOrdered By: Dimitris Drake on 06-22-2024 Platelets (Bld) [#/Vol] 235 10*3/uL 150-450 [facility] Platelet count 235 K/mm3 150-450 [facility] Potassium (Unsp spec) [Mass/ Vol]Ordered By: Audra Drake on 06-22-2024 Potassium [Moles/Vol] 4.4 mmol/L 3.3-5.1 [facility] Potassium measurement (mass/volume) 4.4 mmol/L 3.3-5.1 [facility] Potassium measurement (mass/ volume)Ordered By: Audra Drake on 06-22-2024 Potassium (Unsp spec) [Mass/Vol] 4.4 mmol/L 3.3-5.1 [facility] RBC Auto (Bld) [#/Vol]Ordere d By: Audra Drake on 06-22-2024 RBC (Bld) [#/Vol] 3.56 10*6/uL Low 4.2-5.4 [facility] Automated blood erythrocyte count 3.56 M/mm3 Low 4.2-5.4 [facility] Serum creatinine measurement (mass/volume)Ordered By: Audra Drake on 06-22-2024 Creatinine [Mass/Vol] 0.78 mg/dL 0.70-1.20 [facility] Serum glucose measurement (m ass/volume)Ordered By: Audra Drake on 06-22-2024 Glucose [Mass/Vol] 91 mg/dL 70-99 [facility] Serum or plasma calcium gianluca urement (mass/volume)Ordered By: Audra Drake on 06-22-2024 Calcium [Mass/Vol] 8.6 mg/dL 7.6-11.0 [facility] Serum or plasma urea nitroge n measurement (mass/volume)Ordered By: Audra Drake on 06-22-2024 Urea nitrogen [Mass/Vol] 15 mg/dL 07-17 [facility] Sodium levelOrdered By: Cony Drake on 06-22-2024 Sodium [Moles/Vol] 138 mmol/L 133-145 [facility] Sodium level 138 mmol/L 133-145 [facility] Urea nitrogen [Mass/Vol]Orde red By: Audra Drake on 06-22-2024 Serum or plasma urea nitrogen measurement (mass/volume) 15 mg/dL - [facility] White blood cell (WBC) count Ordered By: Audra Drake on 06-22-2024 WBC (Bld) [#/Vol] 7.1 10*3/uL 4.4-11.0 [facility] White blood cell (WBC) count 7.1 K/mm3 4.4-11.0 [facility] Absolute lymphocyte countOrd ered By: Nikia Henderson on 06-15-2024 Lymphocytes Auto (Unsp spec) [#/Vol] 1.51 10*3/uL 0.83-4.51 [facility] Absolute neutrophil countOrd ered By: Nikia Henderson on 06-15-2024 Neutrophils (Bld) [#/Vol] 2.2 10*3/uL 2.0-7.7 [facility] Absolute neutrophil count 2.2 X10^3/uL 2.0-7.7 [facility] Anion gap [Moles/Vol]Ordered By: Nikia Henderson on 06-15-2024 Anion gap in Serum or Plasma 11 5-15 [facility] Anion gap in Serum or Plasma Ordered By: Nikia Henderson on 06-15-2024 Anion gap [Moles/Vol] 11 mmol/L 5-15 [facility] Automated lymphocyte count a s percentage of total leukocytesOrdered By: Nikia Henderson on 06-15-2024 Lymphocytes/100 WBC Auto (Unsp spec) 34.6 % 19-41 [facility] BUN/creatinine ratioOrdered By: Nikia Henderson on 06-15-2024 Urea nitrogen/Creatinine [Mass ratio] 22.9 mg/mg High 10-20 [facility] BUN/creatinine ratio 22.9 RATIO High 10-20 [facility] Basophil percentageOrdered B y: Nikia Henderson on 06-15-2024 Basophils/100 WBC (Bld) 0.5 % 0-1 [facility] Basophil percentage 0.5 % 0-1 [facility] Calcium [Mass/Vol]Ordered By : Nikia Henderson on 06-15-2024 Serum or plasma calcium measurement (mass/volume) 8.7 mg/dL 7.6-11.0 [facility] Carbon dioxide, total [Moles /volume] in Central venous bloodOrdered By: Nikia Henderson on 06-15-2024 CO2 [Moles/Vol] 20.2 mmol/L Low 21.0-32.0 [facility] Carbon dioxide, total [Moles/volume] in Central venous blood 20.2 mmol/L Low 21.0-32.0 [facility] Chloride assayOrdered By: Cecilia Henderson on 06-15-2024 Chloride [Moles/Vol] 111 mmol/L High 98-108 [facility] Chloride assay 111 mmol/L High 98-108 [facility] Creatinine [Mass/Vol]Ordered By: Nikia Henderson on 06-15-2024 Serum creatinine measurement (mass/volume) 0.65 mg/dL Low 0.70-1.20 [facility] Eosinophil percentageOrdered By: Catalinaokl[place] cityheladio Henderson on 06-15-2024 Eosinophils/100 WBC (Bld) 2.1 % 0-5 [facility] Eosinophil percentage 2.1 % 0-5 [facility] Erythrocyte distribution wid th (RBC) [Ratio]Ordered By: Nikia Henderson on 06-15-2024 Erythrocyte distribution width ratio 14.2 % 11.6-14.6 [facility] Erythrocyte distribution width (RBC) [Entitic vol] 52.7 fL High 35.1-43.9 [facility] Erythrocyte distribution width standard deviation 52.7 fl High 35.1-43.9 [facility] Erythrocyte distribution wid th ratioOrdered By: Catalinaokl[place] cityheladio Henderson on 06-15-2024 Erythrocyte distribution width (RBC) [Ratio] 14.2 % 11.6-14.6 [facility] Erythrocyte distribution wid th standard deviationOrdered By: Ceciliamemorial health university medical centerheladio Henderson on 06-15-2024 Erythrocyte distribution width (RBC) [Ratio] 52.7 fl High 35.1-43.9 [facility] GFR/1.73 sq M.predicted viji g non-blacks MDRD (S/P/Bld) [Vol rate/Area]Ordered By: Nikia Henderson on 06-15-2024 Estimated GFR (MDRD) Non-Af Amer 90 >60 [facility] Comment on above: mL/min/1.73m2 CKD-EP I Creatinine Equation (2020) Glomerular filtration rate (GFR) estimation/1.73 sq m using serum, plasma, or whole b 90 >60 [facility] Glomerular filtration rate ( GFR) estimation/1.73 sq m using serum, plasma, or whole bOrdered By: Nikia Henderson on 06-15-2024 GFR/1.73 sq M.predicted among non-blacks MDRD (S/P/Bld) [Vol rate/Area] 90 mL/min/{1.73_m2} >60 [facility] Glucose [Mass/Vol]Ordered By : Nikia Henderson on 06-15-2024 Serum glucose measurement (mass/volume) 83 mg/dL 70-99 [facility] Hematocrit Auto (Bld) [Volum e fraction]Ordered By: Nikia Henderson on 06-15-2024 Hematocrit (Bld) [Volume fraction] 39.1 % 37-47 [facility] Automated blood hematocrit (percentage) 39.1 % 37-47 [facility] Hemoglobin measurementOrdere d By: Nikia Henderson on 06-15-2024 Hemoglobin (Bld) [Mass/Vol] 12.4 g/dL 12.0-15. 0 [facility] Hemoglobin measurement 12.4 g/dL 12.0-15.0 [facility] Immature granulocytes/100 WB C Auto (Bld)Ordered By: Nikia Henderson on 06-15-2024 Immature granulocytes/100 WBC (Bld) 0.700 % 0.0-0.9 [facility] Comment on above: IG% - Immature Granu locytes (promyelocytes, myelocytes and metamyelocytes) > 1% indicates that a LEFT SHIFT is Present. Automated immature granulocyte percentage 0.700 % 0.0-0.9 [facility] Lymphocytes Auto (Unsp spec) [#/Vol]Ordered By: Nikia Henderson on 06-15-2024 Lymphocytes (Bld) [#/Vol] 1.51 10*3/uL 0.83-4.5 1 [facility] Absolute lymphocyte count 1.51 X10^3/uL 0.83-4. 51 [facility] Lymphocytes/100 WBC Auto (Un sp spec)Ordered By: Nikia Henderson on 06-15-2024 Lymphocytes/100 WBC (Bld) 34.6 % - [facility] Automated lymphocyte count as percentage of total leukocytes 34.6 % [facility] MCV (RBC) [Entitic vol]Order ed By: Nikia Henderson on 06-15-2024 MCV (mean corpuscular volume) determination 100.8 fL High 81-99 [facility] MCV (mean corpuscular volume ) determinationOrdered By: Nikia Henderson on 06-15-2024 MCV (RBC) [Entitic vol] 100.8 fL High 81-99 [facility] Mean corpuscular hemoglobin (MCH) determinationOrdered By: Nikia Henderson on 06-15-2024 MCH (RBC) [Entitic mass] 32.0 pg 27.0-32.0 [facility] Mean corpuscular hemoglobin (MCH) determination 32.0 pg 27.0-32.0 [facility] Mean corpuscular hemoglobin concentration (MCHC) determinationOrdered By: Nikia Henderson on 06-15-2024 MCHC (RBC) [Mass/Vol] 31.7 g/dL Low 32-36 [facility] Mean corpuscular hemoglobin concentration (MCHC) determination 31.7 g/dL Low 32-36 [facility] Mean platelet volume determi nationOrdered By: Nikia Henderson on 06-15-2024 Platelet mean volume (Bld) [Entitic vol] 9.6 fL 6.2-12.0 [facility] Mean platelet volume determination 9.6 fl 6.2-12.0 [facility] Monocyte percentageOrdered B y: Nikia Henderson on 06-15-2024 Monocytes/100 WBC (Bld) 11.5 % High 0-10 [facility] Monocyte percentage 11.5 % High 0-10 [facility] Neutrophil percentageOrdered By: Nikia Henderson on 06-15-2024 Neutrophils/100 WBC (Bld) 50.6 % 47-70 [facility] Neutrophil percentage 50.6 % 47-70 [facility] Nucleated red blood cell per centageOrdered By: Nikia Henderson on 06-15-2024 Nucleated RBC/100 WBC (Bld) [Ratio] 0 % 0-5 [facility] Nucleated red blood cell percentage 0 % 0-5 [facility] Platelet countOrdered By: Cecilia Henderson on 06-15-2024 Platelets (Bld) [#/Vol] 215 10*3/uL 150-450 [facility] Platelet count 215 K/mm3 150-450 [facility] Potassium (Unsp spec) [Mass/ Vol]Ordered By: Nikia Henderson on 06-15-2024 Potassium [Moles/Vol] 4.7 mmol/L 3.3-5.1 [facility] Comment on above: Hemolysis present, R esults could be affected. Potassium measurement (mass/volume) 4.7 mmol/L 3.3-5.1 [facility] Potassium measurement (mass/ volume)Ordered By: Nikia Henderson on 06-15-2024 Potassium (Unsp spec) [Mass/Vol] 4.7 mmol/L 3.3-5.1 [facility] RBC Auto (Bld) [#/Vol]Ordere d By: Nikia Henderson on 06-15-2024 RBC (Bld) [#/Vol] 3.88 10*6/uL Low 4.2-5.4 [facility] Automated blood erythrocyte count 3.88 M/mm3 Low 4.2-5.4 [facility] Serum creatinine measurement (mass/volume)Ordered By: Nikia Henderson on 06-15-2024 Creatinine [Mass/Vol] 0.65 mg/dL Low 0.70-1.20 [facility] Serum glucose measurement (m ass/volume)Ordered By: Nikia Henderson on 06-15-2024 Glucose [Mass/Vol] 83 mg/dL 70-99 [facility] Serum or plasma calcium gianluca urement (mass/volume)Ordered By: Nikia Henderson on 06-15-2024 Calcium [Mass/Vol] 8.7 mg/dL 7.6-11.0 [facility] Serum or plasma urea nitroge n measurement (mass/volume)Ordered By: Nikia Henderson on 06-15-2024 Urea nitrogen [Mass/Vol] 15 mg/dL - [facility] Sodium levelOrdered By: Catalina Henderson on 06-15-2024 Sodium [Moles/Vol] 142 mmol/L 133-145 [facility] Sodium level 142 mmol/L 133-145 [facility] Urea nitrogen [Mass/Vol]Orde red By: Nikia Henderson on 06-15-2024 Serum or plasma urea nitrogen measurement (mass/volume) 15 mg/dL - [facility] White blood cell (WBC) count Ordered By: Nikia Henderson on 06-15-2024 WBC (Bld) [#/Vol] 4.4 10*3/uL 4.4-11.0 [facility] White blood cell (WBC) count 4.4 K/mm3 4.4-11.0 [facility] Absolute lymphocyte countOrd ered By: Nikia Henderson on 06-08-2024 Lymphocytes Auto (Unsp spec) [#/Vol] 1.41 10*3/uL 0.83-4.51 [facility] Absolute neutrophil countOrd ered By: Nikia Henderson on 06-08-2024 Neutrophils (Bld) [#/Vol] 3.7 10*3/uL 2.0-7.7 [facility] Absolute neutrophil count 3.7 X10^3/uL 2.0-7.7 [facility] Anion gap [Moles/Vol]Ordered By: Nikia Henderson on 06-08-2024 Anion gap in Serum or Plasma 10 5- [facility] Anion gap in Serum or Plasma Ordered By: Nikia Henderson on 06-08-2024 Anion gap [Moles/Vol] 10 mmol/L - [facility] Automated lymphocyte count a s percentage of total leukocytesOrdered By: Nikia Henderson on 06-08-2024 Lymphocytes/100 WBC Auto (Unsp spec) 23.7 % 19-41 [facility] BUN/creatinine ratioOrdered By: Nikia Henderson on 06-08-2024 Urea nitrogen/Creatinine [Mass ratio] 29.4 mg/mg High 10-20 [facility] BUN/creatinine ratio 29.4 RATIO High 10-20 [facility] Basophil percentageOrdered B y: Nikia Henderson on 06-08-2024 Basophils/100 WBC (Bld) 0.3 % 0-1 [facility] Basophil percentage 0.3 % 0-1 [facility] Calcium [Mass/Vol]Ordered By : Nikia Henderson on 06-08-2024 Serum or plasma calcium measurement (mass/volume) 8.9 mg/dL 7.6-11.0 [facility] Carbon dioxide, total [Moles /volume] in Central venous bloodOrdered By: Nikia Henderson on 06-08-2024 CO2 [Moles/Vol] 21.5 mmol/L 21.0-32.0 [facility] Carbon dioxide, total [Moles/volume] in Central venous blood 21.5 mmol/L 21.0-32.0 [facility] Chloride assayOrdered By: Cecilia Henderson on 06-08-2024 Chloride [Moles/Vol] 110 mmol/L High 98-108 [facility] Chloride assay 110 mmol/L High 98-108 [facility] Creatinine [Mass/Vol]Ordered By: Nikia Henderson on 06-08-2024 Serum creatinine measurement (mass/volume) 0.68 mg/dL Low 0.70-1.20 [facility] Eosinophil percentageOrdered By: Nikia Henderson on 06-08-2024 Eosinophils/100 WBC (Bld) 3.2 % 0-5 [facility] Eosinophil percentage 3.2 % 0-5 [facility] Erythrocyte distribution wid th (RBC) [Ratio]Ordered By: Nikia Henderson on 06-08-2024 Erythrocyte distribution width ratio 14.5 % 11.6-14.6 [facility] Erythrocyte distribution width (RBC) [Entitic vol] 53.2 fL High 35.1-43.9 [facility] Erythrocyte distribution width standard deviation 53.2 fl High 35.1-43.9 [facility] Erythrocyte distribution wid th ratioOrdered By: Nikia Henderson on 06-08-2024 Erythrocyte distribution width (RBC) [Ratio] 14.5 % 11.6-14.6 [facility] Erythrocyte distribution wid th standard deviationOrdered By: Nikia Henderson on 06-08-2024 Erythrocyte distribution width (RBC) [Ratio] 53.2 fl High 35.1-43.9 [facility] GFR/1.73 sq M.predicted viji g non-blacks MDRD (S/P/Bld) [Vol rate/Area]Ordered By: Nikia Henderson on 06-08-2024 Estimated GFR (MDRD) Non-Af Amer 89 >60 [facility] Comment on above: mL/min/1.73m2 CKD-EP I Creatinine Equation (2020) Glomerular filtration rate (GFR) estimation/1.73 sq m using serum, plasma, or whole b 89 >60 [facility] Glomerular filtration rate ( GFR) estimation/1.73 sq m using serum, plasma, or whole bOrdered By: Nikia Henderson on 06-08-2024 GFR/1.73 sq M.predicted among non-blacks MDRD (S/P/Bld) [Vol rate/Area] 89 mL/min/{1.73_m2} >60 [facility] Glucose [Mass/Vol]Ordered By : Nikia Henderson on 06-08-2024 Serum glucose measurement (mass/volume) 85 mg/dL 70-99 [facility] Hematocrit Auto (Bld) [Volum e fraction]Ordered By: Nikia Henderson on 06-08-2024 Hematocrit (Bld) [Volume fraction] 35.9 % Low 37-47 [facility] Automated blood hematocrit (percentage) 35.9 % Low 37-47 [facility] Hemoglobin measurementOrdere d By: Nikia Henderson on 06-08-2024 Hemoglobin (Bld) [Mass/Vol] 11.5 g/dL Low 12.0-15. 0 [facility] Hemoglobin measurement 11.5 g/dL Low 12.0-15.0 [facility] Immature granulocytes/100 WB C Auto (Bld)Ordered By: Nikia Henderson on 06-08-2024 Immature granulocytes/100 WBC (Bld) 0.300 % 0.0-0.9 [facility] Comment on above: IG% - Immature Granu locytes (promyelocytes, myelocytes and metamyelocytes) > 1% indicates that a LEFT SHIFT is Present. Automated immature granulocyte percentage 0.300 % 0.0-0.9 [facility] Lymphocytes Auto (Unsp spec) [#/Vol]Ordered By: Nikia Henderson on 06-08-2024 Lymphocytes (Bld) [#/Vol] 1.41 10*3/uL 0.83-4.5 1 [facility] Absolute lymphocyte count 1.41 X10^3/uL 0.83-4. 51 [facility] Lymphocytes/100 WBC Auto (Un sp spec)Ordered By: Nkiia Henderson on 06-08-2024 Lymphocytes/100 WBC (Bld) 23.7 % [facility] Automated lymphocyte count as percentage of total leukocytes 23.7 % [facility] MCV (RBC) [Entitic vol]Order ed By: Nikia Henderson on 06-08-2024 MCV (mean corpuscular volume) determination 100.3 fL High 81-99 [facility] MCV (mean corpuscular volume ) determinationOrdered By: Nikia Henderson on 06-08-2024 MCV (RBC) [Entitic vol] 100.3 fL High 81-99 [facility] Mean corpuscular hemoglobin (MCH) determinationOrdered By: Nikia Henderson on 06-08-2024 MCH (RBC) [Entitic mass] 32.1 pg High 27.0-32.0 [facility] Mean corpuscular hemoglobin (MCH) determination 32.1 pg High 27.0-32.0 [facility] Mean corpuscular hemoglobin concentration (MCHC) determinationOrdered By: Nikia Henderson on 06-08-2024 MCHC (RBC) [Mass/Vol] 32.0 g/dL 32-36 [facility] Mean corpuscular hemoglobin concentration (MCHC) determination 32.0 g/dL -36 [facility] Mean platelet volume determi nationOrdered By: Nikia Henderson on 06-08-2024 Platelet mean volume (Bld) [Entitic vol] 9.4 fL 6.2-12.0 [facility] Mean platelet volume determination 9.4 fl 6.2-12.0 [facility] Monocyte percentageOrdered B y: Nikia Henderson on 06-08-2024 Monocytes/100 WBC (Bld) 9.4 % 0-10 [facility] Monocyte percentage 9.4 % 0-10 [facility] Neutrophil percentageOrdered By: Nikia Henderson on 06-08-2024 Neutrophils/100 WBC (Bld) 63.1 % 47-70 [facility] Neutrophil percentage 63.1 % 47-70 [facility] Nucleated red blood cell per centageOrdered By: Nikia Henderson on 06-08-2024 Nucleated RBC/100 WBC (Bld) [Ratio] 0 % 0-5 [facility] Nucleated red blood cell percentage 0 % 0-5 [facility] Platelet countOrdered By: Cecilia Henderson on 06-08-2024 Platelets (Bld) [#/Vol] 244 10*3/uL 150-450 [facility] Platelet count 244 K/mm3 150-450 [facility] Potassium (Unsp spec) [Mass/ Vol]Ordered By: Nikia Henderson on 06-08-2024 Potassium [Moles/Vol] 4.3 mmol/L 3.3-5.1 [facility] Potassium measurement (mass/volume) 4.3 mmol/L 3.3-5.1 [facility] Potassium measurement (mass/ volume)Ordered By: Nikia Henderson on 06-08-2024 Potassium (Unsp spec) [Mass/Vol] 4.3 mmol/L 3.3-5.1 [facility] RBC Auto (Bld) [#/Vol]Ordere d By: Nikia Henderson on 06-08-2024 RBC (Bld) [#/Vol] 3.58 10*6/uL Low 4.2-5.4 [facility] Automated blood erythrocyte count 3.58 M/mm3 Low 4.2-5.4 [facility] Serum creatinine measurement (mass/volume)Ordered By: Nikia Henderson on 06-08-2024 Creatinine [Mass/Vol] 0.68 mg/dL Low 0.70-1.20 [facility] Serum glucose measurement (m ass/volume)Ordered By: Nikia Henderson on 06-08-2024 Glucose [Mass/Vol] 85 mg/dL 70-99 [facility] Serum or plasma calcium gianluca urement (mass/volume)Ordered By: Nikia Henderson on 06-08-2024 Calcium [Mass/Vol] 8.9 mg/dL 7.6-11.0 [facility] Serum or plasma urea nitroge n measurement (mass/volume)Ordered By: Nikia Henderson on 06-08-2024 Urea nitrogen [Mass/Vol] 20 mg/dL High - [facility] Sodium levelOrdered By: Catalina connerlnig Beatriz on 06-08-2024 Sodium [Moles/Vol] 141 mmol/L 133-145 [facility] Sodium level 141 mmol/L 133-145 [facility] Urea nitrogen [Mass/Vol]Orde red By: Nikia Henderson on 06-08-2024 Serum or plasma urea nitrogen measurement (mass/volume) 20 mg/dL High - [facility] White blood cell (WBC) count Ordered By: Nikia Henderson on 06-08-2024 WBC (Bld) [#/Vol] 5.9 10*3/uL 4.4-11.0 [facility] White blood cell (WBC) count 5.9 K/mm3 4.4-11.0 [facility] Absolute lymphocyte countOrd ered By: Nikia Henderson on 06-01-2024 Lymphocytes Auto (Unsp spec) [#/Vol] 1.46 10*3/uL 0.83-4.51 [facility] Absolute neutrophil countOrd ered By: Nikia Henderson on 06-01-2024 Neutrophils (Bld) [#/Vol] 5.2 10*3/uL 2.0-7.7 [facility] Absolute neutrophil count 5.2 X10^3/uL 2.0-7.7 [facility] Anion gap [Moles/Vol]Ordered By: Nikia Henderson on 06-01-2024 Anion gap in Serum or Plasma 11 5- [facility] Anion gap in Serum or Plasma Ordered By: Nikia Henderson on 06-01-2024 Anion gap [Moles/Vol] 11 mmol/L 08-12 [facility] Automated lymphocyte count a s percentage of total leukocytesOrdered By: Nikia Henderson on 06-01-2024 Lymphocytes/100 WBC Auto (Unsp spec) 19.4 % -41 [facility] BUN/creatinine ratioOrdered By: Nikia Henderson on 06-01-2024 Urea nitrogen/Creatinine [Mass ratio] 30.2 mg/mg High 10-20 [facility] BUN/creatinine ratio 30.2 RATIO High 10-20 [facility] Basophil percentageOrdered B y: Nikia Henderson on 06-01-2024 Basophils/100 WBC (Bld) 0.7 % 0-1 W [facility] Basophil percentage 0.7 % 0-1 [facility] Calcium [Mass/Vol]Ordered By : Nikia Henderson on 06-01-2024 Serum or plasma calcium measurement (mass/volume) 9.0 mg/dL 7.6-11.0 [facility] Carbon dioxide, total [Moles /volume] in Central venous bloodOrdered By: Nikia Henderson on 06-01-2024 CO2 [Moles/Vol] 20.7 mmol/L Low 21.0-32.0 [facility] Carbon dioxide, total [Moles/volume] in Central venous blood 20.7 mmol/L Low 21.0-32.0 [facility] Chloride assayOrdered By: Cecilia Henderson on 06-01-2024 Chloride [Moles/Vol] 110 mmol/L High 98-108 [facility] Chloride assay 110 mmol/L High 98-108 [facility] Creatinine [Mass/Vol]Ordered By: Nikia Henderson on 06-01-2024 Serum creatinine measurement (mass/volume) 0.72 mg/dL 0.70-1.20 [facility] Eosinophil percentageOrdered By: Nikia Henderson on 06-01-2024 Eosinophils/100 WBC (Bld) 1.6 % 0-5 [facility] Eosinophil percentage 1.6 % 0-5 [facility] Erythrocyte distribution wid th (RBC) [Ratio]Ordered By: Nikia Henderson on 06-01-2024 Erythrocyte distribution width ratio 14.1 % 11.6-14.6 [facility] Erythrocyte distribution width (RBC) [Entitic vol] 51.8 fL High 35.1-43.9 [facility] Erythrocyte distribution width standard deviation 51.8 fl High 35.1-43.9 [facility] Erythrocyte distribution wid th ratioOrdered By: Nikia Henderson on 06-01-2024 Erythrocyte distribution width (RBC) [Ratio] 14.1 % 11.6-14.6 [facility] Erythrocyte distribution wid th standard deviationOrdered By: Nikia Henderson on 06-01-2024 Erythrocyte distribution width (RBC) [Ratio] 51.8 fl High 35.1-43.9 [facility] GFR/1.73 sq M.predicted viji g non-blacks MDRD (S/P/Bld) [Vol rate/Area]Ordered By: Nikia Henderson on 06-01-2024 Estimated GFR (MDRD) Non-Af Amer 86 >60 [facility] Comment on above: mL/min/1.73m2 CKD-EP I Creatinine Equation (2020) Glomerular filtration rate (GFR) estimation/1.73 sq m using serum, plasma, or whole b 86 >60 [facility] Glomerular filtration rate ( GFR) estimation/1.73 sq m using serum, plasma, or whole bOrdered By: Nikia Henderson on 06-01-2024 GFR/1.73 sq M.predicted among non-blacks MDRD (S/P/Bld) [Vol rate/Area] 86 mL/min/{1.73_m2} >60 [facility] Glucose [Mass/Vol]Ordered By : Nikia Henderson on 06-01-2024 Serum glucose measurement (mass/volume) 94 mg/dL 70-99 [facility] Hematocrit Auto (Bld) [Volum e fraction]Ordered By: Nikia Henderson on 06-01-2024 Hematocrit (Bld) [Volume fraction] 36.4 % Low 37-47 [facility] Automated blood hematocrit (percentage) 36.4 % Low 37-47 [facility] Hemoglobin measurementOrdere d By: Nikia Henderson on 06-01-2024 Hemoglobin (Bld) [Mass/Vol] 11.7 g/dL Low 12.0-15. 0 [facility] Hemoglobin measurement 11.7 g/dL Low 12.0-15.0 [facility] Immature granulocytes/100 WB C Auto (Bld)Ordered By: Nikia Henderson on 06-01-2024 Immature granulocytes/100 WBC (Bld) 0.400 % 0.0-0.9 [facility] Comment on above: IG% - Immature Granu locytes (promyelocytes, myelocytes and metamyelocytes) > 1% indicates that a LEFT SHIFT is Present. Automated immature granulocyte percentage 0.400 % 0.0-0.9 [facility] Lymphocytes Auto (Unsp spec) [#/Vol]Ordered By: Nikia Henderson on 06-01-2024 Lymphocytes (Bld) [#/Vol] 1.46 10*3/uL 0.83-4.5 1 [facility] Absolute lymphocyte count 1.46 X10^3/uL 0.83-4. 51 [facility] Lymphocytes/100 WBC Auto (Un sp spec)Ordered By: Nikia Henderson on 06-01-2024 Lymphocytes/100 WBC (Bld) 19.4 % [facility] Automated lymphocyte count as percentage of total leukocytes 19.4 % [facility] MCV (RBC) [Entitic vol]Order ed By: Nikia Henderson on 06-01-2024 MCV (mean corpuscular volume) determination 100.6 fL High 81-99 [facility] MCV (mean corpuscular volume ) determinationOrdered By: Nikia Henderson on 06-01-2024 MCV (RBC) [Entitic vol] 100.6 fL High 81-99 [facility] Mean corpuscular hemoglobin (MCH) determinationOrdered By: Nikia Henderson on 06-01-2024 MCH (RBC) [Entitic mass] 32.3 pg High 27.0-32.0 [facility] Mean corpuscular hemoglobin (MCH) determination 32.3 pg High 27.0-32.0 [facility] Mean corpuscular hemoglobin concentration (MCHC) determinationOrdered By: Nikia Henderson on 06-01-2024 MCHC (RBC) [Mass/Vol] 32.1 g/dL 32-36 [facility] Mean corpuscular hemoglobin concentration (MCHC) determination 32.1 g/dL -36 [facility] Mean platelet volume determi nationOrdered By: Nikia Henderson on 06-01-2024 Platelet mean volume (Bld) [Entitic vol] 9.8 fL 6.2-12.0 [facility] Mean platelet volume determination 9.8 fl 6.2-12.0 [facility] Monocyte percentageOrdered B y: Nikia Henderson on 06-01-2024 Monocytes/100 WBC (Bld) 8.5 % 0-10 W [facility] Monocyte percentage 8.5 % 0-10 [facility] Neutrophil percentageOrdered By: Nikia Henderson on 06-01-2024 Neutrophils/100 WBC (Bld) 69.4 % 47-70 [facility] Neutrophil percentage 69.4 % 47-70 [facility] Nucleated red blood cell per centageOrdered By: Nikia Henderson on 06-01-2024 Nucleated RBC/100 WBC (Bld) [Ratio] 0 % 0-5 [facility] Nucleated red blood cell percentage 0 % 0-5 [facility] Platelet countOrdered By: Cecilia Henderson on 06-01-2024 Platelets (Bld) [#/Vol] 234 10*3/uL 150-450 [facility] Platelet count 234 K/mm3 150-450 [facility] Potassium (Unsp spec) [Mass/ Vol]Ordered By: Nikia Henderson on 06-01-2024 Potassium [Moles/Vol] 4.4 mmol/L 3.3-5.1 [facility] Potassium measurement (mass/volume) 4.4 mmol/L 3.3-5.1 [facility] Potassium measurement (mass/ volume)Ordered By: Nikia Henderson on 06-01-2024 Potassium (Unsp spec) [Mass/Vol] 4.4 mmol/L 3.3-5.1 [facility] RBC Auto (Bld) [#/Vol]Ordere d By: Nikia Henderson on 06-01-2024 RBC (Bld) [#/Vol] 3.62 10*6/uL Low 4.2-5.4 [facility] Automated blood erythrocyte count 3.62 M/mm3 Low 4.2-5.4 [facility] Serum creatinine measurement (mass/volume)Ordered By: Nikia Henderson on 03-04-2025 Creatinine [Mass/Vol] 0.72 mg/dL 0.70-1.20 [facility] Serum glucose measurement (m ass/volume)Ordered By: Nikia Henderson on 06-01-2024 Glucose [Mass/Vol] 94 mg/dL 70-99 [facility] Serum or plasma calcium gianluca urement (mass/volume)Ordered By: Nikia Henderson on 06-01-2024 Calcium [Mass/Vol] 9.0 mg/dL 7.6-11.0 [facility] Serum or plasma urea nitroge n measurement (mass/volume)Ordered By: Nikia Henderson on 06-01-2024 Urea nitrogen [Mass/Vol] 22 mg/dL High 07-17 [facility] Sodium levelOrdered By: Catalina Henderson on 06-01-2024 Sodium [Moles/Vol] 142 mmol/L 133-145 [facility] Sodium level 142 mmol/L 133-145 [facility] Urea nitrogen [Mass/Vol]Orde red By: Nikia Henderson on 06-01-2024 Serum or plasma urea nitrogen measurement (mass/volume) 22 mg/dL High 07-17 [facility] White blood cell (WBC) count Ordered By: Nikia Henderson on 06-01-2024 WBC (Bld) [#/Vol] 7.5 10*3/uL 4.4-11.0 [facility] White blood cell (WBC) count 7.5 K/mm3 4.4-11.0 [facility] Basic Metabolic Profile (BMP )on 05-28-2024 BUN Normal 10-15 [facility] Comment on above: Result Comment: Canc elled via OM: Order cancelled - Patient discharged Performed By: #### L 500.2500, L100.0100 ####[facility] [id number] [place], [place], [address] BUN/CRE Normal - [facility] Comment on above: Result Comment: Canc elled via OM: Order cancelled - Patient discharged Performed By: #### L 500.2500, L100.0100 ####[facility] [address] [place], [address] CA,Total Normal 8.5-10.1 [facility] Comment on above: Result Comment: Canc elled via OM: Order cancelled - Patient discharged Performed By: #### L 500.2500, L100.0100 ####[facility] [address] [place], [address] CL Normal 98-107 [facility] Comment on above: Result Comment: Canc elled via OM: Order cancelled - Patient discharged Performed By: #### L 500.2500, L100.0100 ####[facility] [address] [place], [address] CO2 Normal 21.0-32.0 [facility] Comment on above: Result Comment: Canc elled via OM: Order cancelled - Patient discharged Performed By: #### L 500.2500, L100.0100 ####[facility] [address] [place], [address] CREAT,SERUM Normal 0.55-1.02 [facility] Comment on above: Result Comment: Canc elled via OM: Order cancelled - Patient discharged Performed By: #### L 500.2500, L100.0100 ####[facility] [address] [place], [address] EST GFR Normal >60 [facility] Comment on above: Result Comment: Canc elled via OM: Order cancelled - Patient discharged Performed By: #### L 500.2500, L100.0100 ####[facility] [address] [place], [address] EST GFR - AA Normal >60 [facility] Comment on above: Result Comment: Canc elled via OM: Order cancelled - Patient discharged Performed By: #### L 500.2500, L100.0100 ####[facility] [address] [place], [address] GAP Normal 5-15 [facility] Comment on above: Result Comment: Canc elled via OM: Order cancelled - Patient discharged Performed By: #### L 500.2500, L100.0100 ####[facility] [address] [place], [address] GLU Normal 74-106 [facility] Comment on above: Result Comment: Canc elled via OM: Order cancelled - Patient discharged Performed By: #### L 500.2500, L100.0100 ####[facility] [address] [place], [address] Potassium Normal 3.5-5.1 [facility] Comment on above: Result Comment: Canc elled via OM: Order cancelled - Patient discharged Performed By: #### L 500.2500, L100.0100 ####[facility] [address] [place], [address] Basic Metabolic Profile (BMP) Normal 136-145 [facility] Comment on above: Result Comment: Canc elled via OM: Order cancelled - Patient discharged Performed By: #### L 500.2500, L100.0100 ####[facility] [address] [place], [address] CBC W/Diff, Automatedon 02-2 Absolute Neut Normal 2.0-7.7 [facility] Comment on above: Result Comment: Canc elled via OM: Order cancelled - Patient discharged Performed By: #### L 500.2500, L100.0100 ####[facility] [address] [place], [address] HCT Normal 37-47 [facility] Comment on above: Result Comment: Canc elled via OM: Order cancelled - Patient discharged Performed By: #### L 500.2500, L100.0100 ####[facility] [address] [place], [address] HGB Normal 12.0-15.0 [facility] Comment on above: Result Comment: Canc elled via OM: Order cancelled - Patient discharged Performed By: #### L 500.2500, L100.0100 ####[facility] [address] [place], [address] MCH Normal 27.0-32.0 [facility] Comment on above: Result Comment: Canc elled via OM: Order cancelled - Patient discharged Performed By: #### L 500.2500, L100.0100 ####[facility] [address] [place], [address] MCHC Normal 32-36 [facility] Comment on above: Result Comment: Canc elled via OM: Order cancelled - Patient discharged Performed By: #### L 500.2500, L100.0100 ####[facility] [address] [place], [address] MCV Normal 81-99 [facility] Comment on above: Result Comment: Canc elled via OM: Order cancelled - Patient discharged Performed By: #### L 500.2500, L100.0100 ####[facility] [address] [place], [address] NEUT% Normal 47-70 [facility] Comment on above: Result Comment: Canc elled via OM: Order cancelled - Patient discharged Performed By: #### L 500.2500, L100.0100 ####[facility] [address] [place], [address] PLT Normal 150-450 [facility] Comment on above: Result Comment: Canc elled via OM: Order cancelled - Patient discharged Performed By: #### L 500.2500, L100.0100 ####[facility] [address] [place], [address] RBC Normal 4.2-5.4 [facility] Comment on above: Result Comment: Canc elled via OM: Order cancelled - Patient discharged Performed By: #### L 500.2500, L100.0100 ####[facility] [address] [place], [address] RDW CV Normal 11.6-14.6 [facility] Comment on above: Result Comment: Canc elled via OM: Order cancelled - Patient discharged Performed By: #### L 500.2500, L100.0100 ####[facility] [address] [place], [address] RDW SD Normal 35.1-43.9 [facility] Comment on above: Result Comment: Canc elled via OM: Order cancelled - Patient discharged Performed By: #### L 500.2500, L100.0100 ####[facility] [address] [place], [address] WBC Normal 4.4-11.0 [facility] Comment on above: Result Comment: Canc elled via OM: Order cancelled - Patient discharged Performed By: #### L 500.2500, L100.0100 ####[facility] [address] [place], [address] Absolute lymphocyte countOrd ered By: Michael Snowden on 05-21-2024 Lymphocytes Auto (Unsp spec) [#/Vol] 1.68 10*3/uL 0.83-4.51 [facility] Absolute neutrophil countOrd ered By: Michael Snowden on 05-21-2024 Neutrophils (Bld) [#/Vol] 6.3 10*3/uL 2.0-7.7 [facility] Absolute neutrophil count 6.3 X10^3/uL 2.0-7.7 [facility] Automated lymphocyte count a s percentage of total leukocytesOrdered By: Michael Snowden on 05-21-2024 Lymphocytes/100 WBC Auto (Unsp spec) 18.3 % Low 19-41 [facility] Basic Metabolic Profile (BMP )on 05-21-2024 BUN/CRE 39.8 RATIO High 10-20 [facility] Comment on above: Performed By: #### L 500.2500, L100.0100 ####[facility] [address] [place], [address] CA,Total 8.9 mg/dL Normal 8.5-10.1 [facility] Comment on above: Performed By: #### L 500.2500, L100.0100 ####[facility] [address] [place], [address] Chloride [Moles/Vol] 109 mmol/L High 98-107 [facility] Comment on above: Performed By: #### L 500.2500, L100.0100 ####[facility] [address] [place], [address] CO2 [Moles/Vol] 22.0 mmol/L Normal 21.0-32.0 [facility] Comment on above: Performed By: #### L 500.2500, L100.0100 ####[facility] [address] [place], [address] Creatinine [Mass/Vol] 0.80 mg/dL Normal 0.55-1.02 [facility] Comment on above: Result Comment: The validity of the calculated GFR GFRAA in patients over70 years has not been determined. Clinical correlation isessential. Performed By: #### L 500.2500, L100.0100 ####[facility] [address] [place], [address] ECRCL 50.86 ml/min Normal [facility] Comment on above: Performed By: #### L 500.2500, L100.0100 ####[facility] [address] [place], [address] EST GFR - AA 89 mL/min Normal >60 [facility] Comment on above: Result Comment: Afri can Uzbek GFR Calc Performed By: #### L 500.2500, L100.0100 ####[facility] [address] [place], [address] GAP 9 Normal 5-15 [facility] Comment on above: Performed By: #### L 500.2500, L100.0100 ####[facility] [address] [place], [address] GFR/1.73 sq M.predicted among non-blacks MDRD (S/P/Bld) [Vol rate/Area] 73 mL/min/{1.73_m2} Normal >60 [facility] Comment on above: Result Comment: Non- GFR Calc Performed By: #### L 500.2500, L100.0100 ####[facility] [address] [place], [address] Glucose [Mass/Vol] 85 mg/dL Normal 74-106 [facility] Comment on above: Performed By: #### L 500.2500, L100.0100 ####[facility] [address] [place], [address] Potassium [Moles/Vol] 5.1 mmol/L Normal 3.5-5.1 [facility] Comment on above: Performed By: #### L 500.2500, L100.0100 ####[facility] [address] [place], [address] Sodium [Moles/Vol] 140 mmol/L Normal 136-145 [facility] Comment on above: Performed By: #### L 500.2500, L100.0100 ####[facility] [address] [place], [address] Urea nitrogen [Mass/Vol] 32 mg/dL High 7-18 [facility] Comment on above: Performed By: #### L 500.2500, L100.0100 ####[facility] [address] [place], [address] Basophil percentageOrdered B y: Michael Snowden on 05-21-2024 Basophils/100 WBC (Bld) 0.1 % 0-1 [facility] Basophil percentage 0.1 % 0-1 [facility] Blood urea nitrogen (BUN)/cr eatinine ratioOrdered By: Michael Snowden on 05-21-2024 Urea nitrogen/Creatinine [Mass ratio] 39.8 mg/mg High 10- [facility] Blood urea nitrogen (BUN)/creatinine ratio 39.8 RATIO High 10-20 [facility] CBC W/Diff, Automatedon 05-02 Absolute Lymph 1.68 X10 3/uL Normal 0.83-4.51 [facility] Comment on above: Performed By: #### L 500.2500, L100.0100 ####[facility] [address] [place], [address] Absolute Neut 6.3 X10 3/uL Normal 2.0-7.7 [facility] Comment on above: Performed By: #### L 500.2500, L100.0100 ####[facility] [address] [place], [address] Basophils/100 WBC (Bld) 0.1 % Normal 0-1 W [facility] Comment on above: Performed By: #### L 500.2500, L100.0100 ####[facility] [address] [place], [address] Eosinophils/100 WBC (Bld) 0.4 % Normal 0-5 [facility] Comment on above: Performed By: #### L 500.2500, L100.0100 ####[facility] [address] [place], [address] Erythrocyte distribution width (RBC) [Ratio] 14.3 % Normal 11.6-14.6 [facility] Comment on above: Performed By: #### L 500.2500, L100.0100 ####[facility] [address] [place], [address] Hematocrit (Bld) [Volume fraction] 34.3 % Low 37-47 [facility] Comment on above: Performed By: #### L 500.2500, L100.0100 ####[facility] [address] [place], [address] Hemoglobin (Bld) [Mass/Vol] 11.0 g/dL Low 12.0-15. 0 [facility] Comment on above: Performed By: #### L 500.2500, L100.0100 ####[facility] [address] [place], [address] IG% 2.600 High 0.0-0.9 [facility] Comment on above: Result Comment: IG% - Immature Granulocytes (promyelocytes, myelocytes andmetamyelocytes) > 1% indicates that a LEFT SHIFT is Present. Performed By: #### L 500.2500, L100.0100 ####[facility] [address] [place], [address] Lymphocytes/100 WBC (Bld) 18.3 % Low 19-41 [facility] Comment on above: Performed By: #### L 500.2500, L100.0100 ####[facility] [address] [place], [address] MCH (RBC) [Entitic mass] 31.7 pg Normal 27.0-32.0 [facility] Comment on above: Performed By: #### L 500.2500, L100.0100 ####[facility] [address] [place], [address] MCHC (RBC) [Mass/Vol] 32.1 g/dL Normal 32-36 [facility] Comment on above: Performed By: #### L 500.2500, L100.0100 ####[facility] [address] [place], [address] MCV (RBC) [Entitic vol] 98.8 fL Normal 81-99 [facility] Comment on above: Performed By: #### L 500.2500, L100.0100 ####[facility] [address] [place], [address] Monocytes/100 WBC (Bld) 9.6 % Normal 0-10 [facility] Comment on above: Performed By: #### L 500.2500, L100.0100 ####[facility] [address] [place], [address] Neutrophils/100 WBC (Bld) 69.0 % Normal 47-70 [facility] Comment on above: Performed By: #### L 500.2500, L100.0100 ####[facility] [address] [place], [address] Nucleated RBC (Bld) [#/Vol] 0 10*3/uL Normal 0-5 [facility] Comment on above: Performed By: #### L 500.2500, L100.0100 ####[facility] [address] [place], [address] Platelet mean volume (Bld) [Entitic vol] 8.9 fL Normal 6.2-12.0 [facility] Comment on above: Performed By: #### L 500.2500, L100.0100 ####[facility] [address] [place], [address] Platelets (Bld) [#/Vol] 280 10*3/uL Normal 150-450 [facility] Comment on above: Performed By: #### L 500.2500, L100.0100 ####[facility] [address] [place], [address] RBC (Bld) [#/Vol] 3.47 10*6/uL Low 4.2-5.4 [facility] Comment on above: Performed By: #### L 500.2500, L100.0100 ####[facility] [address] [place], [address] RDW SD 52.0 fl High 35.1-43.9 [facility] Comment on above: Performed By: #### L 500.2500, L100.0100 ####[facility] [address] [place], [address] WBC (Bld) [#/Vol] 9.2 10*3/uL Normal 4.4-11.0 [facility] Comment on above: Performed By: #### L 500.2500, L100.0100 ####[facility] [address] [place], [address] Calcium [Mass/Vol]Ordered By : Michael Snowden on 05-21-2024 Serum or plasma calcium measurement (mass/volume) 8.9 mg/dL 8.5-10.1 [facility] Carbon dioxide measurementOr dered By: Michael Snowden on 05-21-2024 CO2 [Moles/Vol] 22.0 mmol/L 21.0-32.0 [facility] Carbon dioxide measurement 22.0 mmol/L 21.0-32. 0 [facility] Chloride measurementOrdered By: Michael Snowden on 05-21-2024 Chloride [Moles/Vol] 109 mmol/L High 98-107 [facility] Chloride measurement 109 mmol/L High 98-107 [facility] Creatinine [Mass/Vol]Ordered By: Michael Snowden 05-21-2024 Serum or plasma creatinine measurement (mass/volume) 0.80 mg/dL 0.55-1.02 [facility] Eosinophil percentageOrdered By: Michael Snowden 05-21-2024 Eosinophils/100 WBC (Bld) 0.4 % 0-5 [facility] Eosinophil percentage 0.4 % 0-5 [facility] Erythrocyte distribution wid th (RBC) [Ratio]Ordered By: Michael Snowden on 05-21-2024 Erythrocyte distribution width ratio 14.3 % 11.6-14.6 [facility] Erythrocyte distribution width (RBC) [Entitic vol] 52.0 fL High 35.1-43.9 [facility] Erythrocyte distribution width standard deviation 52.0 fl High 35.1-43.9 [facility] Erythrocyte distribution wid th ratioOrdered By: Michael Snowden on 05-21-2024 Erythrocyte distribution width (RBC) [Ratio] 14.3 % 11.6-14.6 [facility] Erythrocyte distribution wid th standard deviationOrdered By: Michael Snowden on 05-21-2024 Erythrocyte distribution width (RBC) [Ratio] 52.0 fl High 35.1-43.9 [facility] Estimated glomerular filtrat ion rate (GFR) AmericanOrdered By: Michael Snowden on 05-21-2024 Estimated GFR (MDRD) Amer 89 mL/min >60 [facility] Comment on above: GFR Calc Estimated glomerular filtration rate (GFR) 89 mL/min >60 [facility] Estimation of creatinine bharat aranceOrdered By: Michael Snowden on 05-21-2024 Estimated Creatinine Clearance Calc 50.86 ml/min [facility] Estimation of creatinine clearance 50.86 ml/min [facility] Glomerular filtration rate ( GFR) estimationOrdered By: Michael Snowden on 05-21-2024 Estimated GFR (MDRD) Non-Af Amer 73 mL/min >60 [facility] Comment on above: Non- GFR Calc GFR/1.73 sq M.predicted among non-blacks MDRD (S/P/Bld) [Vol rate/Area] 73 mL/min/{1.73_m2} >60 [facility] Glomerular filtration rate (GFR) estimation 73 mL/min >60 [facility] Glucose measurementOrdered B y: Michael Snowden on 05-21-2024 Glucose [Mass/Vol] 85 mg/dL 74-106 [facility] Glucose measurement 85 mg/dL 74-106 [facility] Hematocrit Auto (Bld) [Volum e fraction]Ordered By: Michael Snowden on 05-21-2024 Hematocrit (Bld) [Volume fraction] 34.3 % Low 37-47 [facility] Automated blood hematocrit (percentage) 34.3 % Low 37-47 [facility] Hemoglobin measurementOrdere d By: Michael Snowden on 05-21-2024 Hemoglobin (Bld) [Mass/Vol] 11.0 g/dL Low 12.0-15. 0 [facility] Hemoglobin measurement 11.0 g/dL Low 12.0-15.0 [facility] Immature granulocytes/100 WB C Auto (Bld)Ordered By: Michael Snowden on 05-21-2024 Immature granulocytes/100 WBC (Bld) 2.600 % High 0.0-0.9 [facility] Comment on above: IG% - Immature Granu locytes (promyelocytes, myelocytes and metamyelocytes) > 1% indicates that a LEFT SHIFT is Present. Automated immature granulocyte percentage 2.600 % High 0.0-0.9 [facility] Lymphocytes Auto (Unsp spec) [#/Vol]Ordered By: Michael Snowden on 05-21-2024 Lymphocytes (Bld) [#/Vol] 1.68 10*3/uL 0.83-4.5 1 [facility] Absolute lymphocyte count 1.68 X10^3/uL 0.83-4. 51 [facility] Lymphocytes/100 WBC Auto (Un sp spec)Ordered By: Michael Snowden on 05-21-2024 Lymphocytes/100 WBC (Bld) 18.3 % Low 19-41 [facility] Automated lymphocyte count as percentage of total leukocytes 18.3 % Low 19-41 [facility] MCV (RBC) [Entitic vol]Order ed By: Michael Snowden on 05-21-2024 MCV (mean corpuscular volume) determination 98.8 fL 81-99 [facility] MCV (mean corpuscular volume ) determinationOrdered By: Michael Snowden on 05-21-2024 MCV (RBC) [Entitic vol] 98.8 fL 81-99 [facility] Mean corpuscular hemoglobin (MCH) determinationOrdered By: Michael Snowden on 05-21-2024 MCH (RBC) [Entitic mass] 31.7 pg 27.0-32.0 [facility] Mean corpuscular hemoglobin (MCH) determination 31.7 pg 27.0-32.0 [facility] Mean corpuscular hemoglobin concentration (MCHC) determinationOrdered By: Michael Snowden on 05-21-2024 MCHC (RBC) [Mass/Vol] 32.1 g/dL 32-36 [facility] Mean corpuscular hemoglobin concentration (MCHC) determination 32.1 g/dL -36 [facility] Mean platelet volume determi nationOrdered By: Michael Snowden on 05-21-2024 Platelet mean volume (Bld) [Entitic vol] 8.9 fL 6.2-12.0 [facility] Mean platelet volume determination 8.9 fl 6.2-12.0 [facility] Monocyte percentageOrdered B y: Michael Snowden on 05-21-2024 Monocytes/100 WBC (Bld) 9.6 % 0-10 [facility] Monocyte percentage 9.6 % 0-10 [facility] Neutrophil percentageOrdered By: Michael Snowden on 05-21-2024 Neutrophils/100 WBC (Bld) 69.0 % 47-70 [facility] Neutrophil percentage 69.0 % 47-70 [facility] Nucleated red blood cell per centageOrdered By: Michael Snowden on 05-21-2024 Nucleated RBC/100 WBC (Bld) [Ratio] 0 % 0-5 [facility] Nucleated red blood cell percentage 0 % 0-5 [facility] Platelet countOrdered By: Augusto Snowden on 05-21-2024 Platelets (Bld) [#/Vol] 280 10*3/uL 150-450 [facility] Platelet count 280 K/mm3 150-450 [facility] Potassium measurementOrdered By: Michael Snowden on 05-21-2024 Potassium [Moles/Vol] 5.1 mmol/L 3.5-5.1 [facility] Potassium measurement 5.1 mmol/L 3.5-5.1 [facility] RBC Auto (Bld) [#/Vol]Ordere d By: Michael Snowden on 05-21-2024 RBC (Bld) [#/Vol] 3.47 10*6/uL Low 4.2-5.4 [facility] Automated blood erythrocyte count 3.47 M/mm3 Low 4.2-5.4 [facility] Serum anion gap measurementO rdered By: Michael Snowden on 05-21-2024 Anion gap [Moles/Vol] 9 mmol/L 5-15 [facility] Serum anion gap measurement 9 5-15 [facility] Serum or plasma calcium gianluca urement (mass/volume)Ordered By: Michael Snowden on 05-21-2024 Calcium [Mass/Vol] 8.9 mg/dL 8.5-10.1 [facility] Serum or plasma creatinine m easurement (mass/volume)Ordered By: Michael Snowden on 05-21-2024 Creatinine [Mass/Vol] 0.80 mg/dL 0.55-1.02 [facility] Comment on above: The validity of the calculated GFR & GFRAA in patients over 70 years has not been determined. Clinical correlation is essential. Serum or plasma urea nitroge n measurement (mass/volume)Ordered By: Michael Snowden on 05-21-2024 Urea nitrogen [Mass/Vol] 32 mg/dL High 10-15 [facility] Sodium levelOrdered By: Michael Snowden on 05-21-2024 Sodium [Moles/Vol] 140 mmol/L 136-145 [facility] Sodium level 140 mmol/L 136-145 [facility] Urea nitrogen [Mass/Vol]Orde red By: Michael Snowden on 05-21-2024 Serum or plasma urea nitrogen measurement (mass/volume) 32 mg/dL High 10-15 [facility] White blood cell (WBC) count Ordered By: Michael Snowden on 05-21-2024 WBC (Bld) [#/Vol] 9.2 10*3/uL 4.4-11.0 [facility] White blood cell (WBC) count 9.2 K/mm3 4.4-11.0 [facility] COVID 19 AG RAPID (ELIE Saini)on 05-19-2024 SARS-CoV-2 (COVID-19) RNA DALILA+probe Ql (Unsp spec) Normal [facility] Comment on above: Performed By: #### M 100.505 ####[facility] [address] [place], [address] COVID-19 virus antigen assay Ordered By: Michael Snowden on 05-19-2024 SARS-CoV-2 (COVID-19) Ag IA.rapid Ql (Resp) [facility] SARS-CoV-2 (COVID-19) Ag IA. rapid Ql (Resp)Ordered By: Michael Snowden on 05-19-2024 SARS-CoV-2 Antigen (Rapid) [facility] Lumbar Spine 2 or 3 Viewson 05-18-2024 Lumbar Spine 2 or 3 Views Normal [facility] Basic Metabolic Profile (BMP )on 05-14-2024 BUN/CRE 22.1 RATIO High 10-20 [facility] Comment on above: Performed By: #### L 500.2500, L100.0100 ####[facility] [address] [place], [address] CA,Total 9.2 mg/dL Normal 8.5-10.1 [facility] Comment on above: Performed By: #### L 500.2500, L100.0100 ####[facility] [address] [place], [address] Chloride [Moles/Vol] 108 mmol/L High 98-107 [facility] Comment on above: Performed By: #### L 500.2500, L100.0100 ####[facility] [address] [place], [address] CO2 [Moles/Vol] 23.0 mmol/L Normal 21.0-32.0 [facility] Comment on above: Performed By: #### L 500.2500, L100.0100 ####[facility] [address] [place], [address] Creatinine [Mass/Vol] 0.63 mg/dL Normal 0.55-1.02 [facility] Comment on above: Result Comment: The validity of the calculated GFR GFRAA in patients over70 years has not been determined. Clinical correlation isessential. Performed By: #### L 500.2500, L100.0100 ####[facility] [address] [place], [address] ECRCL 50.48 ml/min Normal [facility] Comment on above: Performed By: #### L 500.2500, L100.0100 ####[facility] [address] [place], [address] EST GFR - AA 117 mL/min Normal >60 [facility] Comment on above: Result Comment: Afri can Uzbek GFR Calc Performed By: #### L 500.2500, L100.0100 ####[facility] [address] [place], [address] GAP 6 Normal 5-15 [facility] Comment on above: Performed By: #### L 500.2500, L100.0100 ####[facility] [address] [place], [address] GFR/1.73 sq M.predicted among non-blacks MDRD (S/P/Bld) [Vol rate/Area] 96 mL/min/{1.73_m2} Normal >60 [facility] Comment on above: Result Comment: Non- GFR Calc Performed By: #### L 500.2500, L100.0100 ####[facility] [address] [place], [address] Glucose [Mass/Vol] 88 mg/dL Normal 74-106 [facility] Comment on above: Performed By: #### L 500.2500, L100.0100 ####[facility] [address] [place], [address] Potassium [Moles/Vol] 4.1 mmol/L Normal 3.5-5.1 [facility] Comment on above: Performed By: #### L 500.2500, L100.0100 ####[facility] [address] [place], [address] Sodium [Moles/Vol] 137 mmol/L Normal 136-145 [facility] Comment on above: Performed By: #### L 500.2500, L100.0100 ####[facility] [address] [place], [address] Urea nitrogen [Mass/Vol] 14 mg/dL Normal 7-18 [facility] Comment on above: Performed By: #### L 500.2500, L100.0100 ####[facility] [address] [place], [address] CBC W/Diff, Automatedon 05-01 Absolute Lymph 1.29 X10 3/uL Normal 0.83-4.51 [facility] Comment on above: Performed By: #### L 500.2500, L100.0100 ####[facility] [address] [place], [address] Absolute Neut 2.8 X10 3/uL Normal 2.0-7.7 [facility] Comment on above: Performed By: #### L 500.2500, L100.0100 ####[facility] [address] [place], [address] Basophils/100 WBC (Bld) 0.8 % Normal 0-1 W [facility] Comment on above: Performed By: #### L 500.2500, L100.0100 ####[facility] [address] [place], [address] Eosinophils/100 WBC (Bld) 3.2 % Normal 0-5 [facility] Comment on above: Performed By: #### L 500.2500, L100.0100 ####[facility] [address] [place], [address] Erythrocyte distribution width (RBC) [Ratio] 13.6 % Normal 11.6-14.6 [facility] Comment on above: Performed By: #### L 500.2500, L100.0100 ####[facility] [address] [place], [address] Hematocrit (Bld) [Volume fraction] 33.9 % Low 37-47 [facility] Comment on above: Performed By: #### L 500.2500, L100.0100 ####[facility] [address] [place], [address] Hemoglobin (Bld) [Mass/Vol] 11.0 g/dL Low 12.0-15. 0 [facility] Comment on above: Performed By: #### L 500.2500, L100.0100 ####[facility] [address] [place], [address] IG% 0.400 Normal 0.0-0.9 [facility] Comment on above: Result Comment: IG% - Immature Granulocytes (promyelocytes, myelocytes andmetamyelocytes) > 1% indicates that a LEFT SHIFT is Present. Performed By: #### L 500.2500, L100.0100 ####[facility] [address] [place], [address] Lymphocytes/100 WBC (Bld) 26.2 % Normal 19-41 [facility] Comment on above: Performed By: #### L 500.2500, L100.0100 ####[facility] [address] [place], [address] MCH (RBC) [Entitic mass] 32.2 pg High 27.0-32.0 [facility] Comment on above: Performed By: #### L 500.2500, L100.0100 ####[facility] [address] [place], [address] MCHC (RBC) [Mass/Vol] 32.4 g/dL Normal 32-36 [facility] Comment on above: Performed By: #### L 500.2500, L100.0100 ####[facility] [address] [place], [address] MCV (RBC) [Entitic vol] 99.1 fL High 81-99 [facility] Comment on above: Performed By: #### L 500.2500, L100.0100 ####[facility] [address] [place], [address] Monocytes/100 WBC (Bld) 12.4 % High 0-10 W [facility] Comment on above: Performed By: #### L 500.2500, L100.0100 ####[facility] [address] [place], [address] Neutrophils/100 WBC (Bld) 57.0 % Normal 47-70 [facility] Comment on above: Performed By: #### L 500.2500, L100.0100 ####[facility] [address] [place], [address] Nucleated RBC (Bld) [#/Vol] 0 10*3/uL Normal 0-5 [facility] Comment on above: Performed By: #### L 500.2500, L100.0100 ####[facility] [address] [place], [address] Platelet mean volume (Bld) [Entitic vol] 9.3 fL Normal 6.2-12.0 [facility] Comment on above: Performed By: #### L 500.2500, L100.0100 ####[facility] [address] [place], [address] Platelets (Bld) [#/Vol] 196 10*3/uL Normal 150-450 [facility] Comment on above: Performed By: #### L 500.2500, L100.0100 ####[facility] [address] [place], [address] RBC (Bld) [#/Vol] 3.42 10*6/uL Low 4.2-5.4 [facility] Comment on above: Performed By: #### L 500.2500, L100.0100 ####[facility] [address] [place], [address] RDW SD 49.5 fl High 35.1-43.9 [facility] Comment on above: Performed By: #### L 500.2500, L100.0100 ####[facility] [address] [place], [address] WBC (Bld) [#/Vol] 4.9 10*3/uL Normal 4.4-11.0 [facility] Comment on above: Performed By: #### L 500.2500, L100.0100 ####[facility] [address] [place], [address] COVID 19 AG RAPID (ELIE Saini)on 05-12-2024 SARS-CoV-2 (COVID-19) RNA DALILA+probe Ql (Unsp spec) Normal [facility] Comment on above: Performed By: #### M 100.505 ####[facility] [address] [place], [address] COVID-19 virus antigen assay Ordered By: Michael Snowden on 05-12-2024 SARS-CoV-2 (COVID-19) Ag IA.rapid Ql (Resp) [facility] SARS-CoV-2 (COVID-19) Ag IA. rapid Ql (Resp)Ordered By: Michael Snowden on 05-12-2024 SARS-CoV-2 Antigen (Rapid) [facility] Basic Metabolic Profile (BMP )on 05-07-2024 BUN/CRE 23.5 RATIO High 10-20 [facility] Comment on above: Performed By: #### L 500.2500, L100.0100 ####[facility] [address] [place], [address] CA,Total 8.8 mg/dL Normal 8.5-10.1 [facility] Comment on above: Performed By: #### L 500.2500, L100.0100 ####[facility] [address] [place], [address] Chloride [Moles/Vol] 110 mmol/L High 98-107 [facility] Comment on above: Performed By: #### L 500.2500, L100.0100 ####[facility] [address] [place], [address] CO2 [Moles/Vol] 22.0 mmol/L Normal 21.0-32.0 [facility] Comment on above: Performed By: #### L 500.2500, L100.0100 ####[facility] [address] [place], [address] Creatinine [Mass/Vol] 0.64 mg/dL Normal 0.55-1.02 [facility] Comment on above: Result Comment: The validity of the calculated GFR GFRAA in patients over70 years has not been determined. Clinical correlation isessential. Performed By: #### L 500.2500, L100.0100 ####[facility] [address] [place], [address] ECRCL 50.29 ml/min Normal [facility] Comment on above: Performed By: #### L 500.2500, L100.0100 ####[facility] [address] [place], [address] EST GFR - AA 116 mL/min Normal >60 [facility] Comment on above: Result Comment: Afri can Uzbek GFR Calc Performed By: #### L 500.2500, L100.0100 ####[facility] [address] [place], [address] GAP 10 Normal 5-15 [facility] Comment on above: Performed By: #### L 500.2500, L100.0100 ####[facility] [address] [place], [address] GFR/1.73 sq M.predicted among non-blacks MDRD (S/P/Bld) [Vol rate/Area] 96 mL/min/{1.73_m2} Normal >60 [facility] Comment on above: Result Comment: Non- GFR Calc Performed By: #### L 500.2500, L100.0100 ####[facility] [address] [place], [address] Glucose [Mass/Vol] 94 mg/dL Normal 74-106 [facility] Comment on above: Performed By: #### L 500.2500, L100.0100 ####[facility] [address] [place], [address] Potassium [Moles/Vol] 4.1 mmol/L Normal 3.5-5.1 [facility] Comment on above: Performed By: #### L 500.2500, L100.0100 ####[facility] [address] [place], [address] Sodium [Moles/Vol] 142 mmol/L Normal 136-145 [facility] Comment on above: Performed By: #### L 500.2500, L100.0100 ####[facility] [address] [place], [address] Urea nitrogen [Mass/Vol] 15 mg/dL Normal 7-18 [facility] Comment on above: Performed By: #### L 500.2500, L100.0100 ####[facility] [address] [place], [address] CBC W/Diff, Automatedon 02-0 7-202 Absolute Lymph 1.20 X10 3/uL Normal 0.83-4.51 [facility] Comment on above: Performed By: #### L 500.2500, L100.0100 ####[facility] [address] [place], [address] Absolute Neut 2.9 X10 3/uL Normal 2.0-7.7 [facility] Comment on above: Performed By: #### L 500.2500, L100.0100 ####[facility] [address] [place], [address] Basophils/100 WBC (Bld) 0.6 % Normal 0-1 W [facility] Comment on above: Performed By: #### L 500.2500, L100.0100 ####[facility] [address] [place], [address] Eosinophils/100 WBC (Bld) 3.0 % Normal 0-5 [facility] Comment on above: Performed By: #### L 500.2500, L100.0100 ####[facility] [address] [place], [address] Erythrocyte distribution width (RBC) [Ratio] 13.7 % Normal 11.6-14.6 [facility] Comment on above: Performed By: #### L 500.2500, L100.0100 ####[facility] [address] [place], [address] Hematocrit (Bld) [Volume fraction] 35.3 % Low 37-47 [facility] Comment on above: Performed By: #### L 500.2500, L100.0100 ####[facility] [address] [place], [address] Hemoglobin (Bld) [Mass/Vol] 11.3 g/dL Low 12.0-15. 0 [facility] Comment on above: Performed By: #### L 500.2500, L100.0100 ####[facility] [address] [place], [address] IG% 0.200 Normal 0.0-0.9 [facility] Comment on above: Result Comment: IG% - Immature Granulocytes (promyelocytes, myelocytes andmetamyelocytes) > 1% indicates that a LEFT SHIFT is Present. Performed By: #### L 500.2500, L100.0100 ####[facility] [address] [place], [address] Lymphocytes/100 WBC (Bld) 25.4 % Normal 19-41 [facility] Comment on above: Performed By: #### L 500.2500, L100.0100 ####[facility] [address] [place], [address] MCH (RBC) [Entitic mass] 31.7 pg Normal 27.0-32.0 [facility] Comment on above: Performed By: #### L 500.2500, L100.0100 ####[facility] [address] [place], [address] MCHC (RBC) [Mass/Vol] 32.0 g/dL Normal 32-36 [facility] Comment on above: Performed By: #### L 500.2500, L100.0100 ####[facility] [address] [place], [address] MCV (RBC) [Entitic vol] 98.9 fL Normal 81-99 [facility] Comment on above: Performed By: #### L 500.2500, L100.0100 ####[facility] [address] [place], [address] Monocytes/100 WBC (Bld) 10.2 % High 0-10 [facility] Comment on above: Performed By: #### L 500.2500, L100.0100 ####[facility] [address] [place], [address] Neutrophils/100 WBC (Bld) 60.6 % Normal 47-70 [facility] Comment on above: Performed By: #### L 500.2500, L100.0100 ####[facility] [address] [place], [address] Nucleated RBC (Bld) [#/Vol] 0 10*3/uL Normal 0-5 [facility] Comment on above: Performed By: #### L 500.2500, L100.0100 ####[facility] [address] [place], [address] Platelet mean volume (Bld) [Entitic vol] 8.9 fL Normal 6.2-12.0 [facility] Comment on above: Performed By: #### L 500.2500, L100.0100 ####[facility] [address] [place], [address] Platelets (Bld) [#/Vol] 208 10*3/uL Normal 150-450 [facility] Comment on above: Performed By: #### L 500.2500, L100.0100 ####[facility] [address] [place], [address] RBC (Bld) [#/Vol] 3.57 10*6/uL Low 4.2-5.4 [facility] Comment on above: Performed By: #### L 500.2500, L100.0100 ####[facility] [address] [place], [address] RDW SD 50.4 fl High 35.1-43.9 [facility] Comment on above: Performed By: #### L 500.2500, L100.0100 ####[facility] [address] [place], [address] WBC (Bld) [#/Vol] 4.7 10*3/uL Normal 4.4-11.0 [facility] Comment on above: Performed By: #### L 500.2500, L100.0100 ####[facility] [address] [place], [address] Basic Metabolic Profile (BMP )on 04-30-2024 BUN/CRE 28.8 RATIO High 10-20 [facility] Comment on above: Performed By: #### L 100.0100, L500.2500 ####[facility] [address] [place], [address] CA,Total 8.9 mg/dL Normal 8.5-10.1 [facility] Comment on above: Performed By: #### L 100.0100, L500.2500 ####[facility] [address] [place], [address] Chloride [Moles/Vol] 112 mmol/L High 98-107 [facility] Comment on above: Performed By: #### L 100.0100, L500.2500 ####[facility] [address] [place], [address] CO2 [Moles/Vol] 22.0 mmol/L Normal 21.0-32.0 [facility] Comment on above: Performed By: #### L 100.0100, L500.2500 ####[facility] [address] [place], [address] Creatinine [Mass/Vol] 0.73 mg/dL Normal 0.55-1.02 [facility] Comment on above: Result Comment: The validity of the calculated GFR GFRAA in patients over70 years has not been determined. Clinical correlation isessential. Performed By: #### L 100.0100, L500.2500 ####[facility] [address] [place], [address] ECRCL 50.34 ml/min Normal [facility] Comment on above: Performed By: #### L 100.0100, L500.2500 ####[facility] [address] [place], [address] EST GFR - AA 99 mL/min Normal >60 [facility] Comment on above: Result Comment: Afri can Uzbek GFR Calc Performed By: #### L 100.0100, L500.2500 ####[facility] [address] [place], [address] GAP 5 Normal 5-15 [facility] Comment on above: Performed By: #### L 100.0100, L500.2500 ####[facility] [address] [place], [address] GFR/1.73 sq M.predicted among non-blacks MDRD (S/P/Bld) [Vol rate/Area] 82 mL/min/{1.73_m2} Normal >60 [facility] Comment on above: Result Comment: Non- GFR Calc Performed By: #### L 100.0100, L500.2500 ####[facility] [address] [place], [address] Glucose [Mass/Vol] 96 mg/dL Normal 74-106 [facility] Comment on above: Performed By: #### L 100.0100, L500.2500 ####[facility] [address] [place], [address] Potassium [Moles/Vol] 4.3 mmol/L Normal 3.5-5.1 [facility] Comment on above: Performed By: #### L 100.0100, L500.2500 ####[facility] [address] [place], [address] Sodium [Moles/Vol] 140 mmol/L Normal 136-145 [facility] Comment on above: Performed By: #### L 100.0100, L500.2500 ####[facility] [address] [place], [address] Urea nitrogen [Mass/Vol] 21 mg/dL High 7-18 [facility] Comment on above: Performed By: #### L 100.0100, L500.2500 ####[facility] [address] [place], [address] CBC W/Diff, Automatedon 01-3 -2024 Absolute Lymph 1.28 X10 3/uL Normal 0.83-4.51 [facility] Comment on above: Performed By: #### L 100.0100, L500.2500 ####[facility] [address] [place], [address] Absolute Neut 3.9 X10 3/uL Normal 2.0-7.7 [facility] Comment on above: Performed By: #### L 100.0100, L500.2500 ####[facility] [address] [place], [address] Basophils/100 WBC (Bld) 1.0 % Normal 0-1 W [facility] Comment on above: Performed By: #### L 100.0100, L500.2500 ####[facility] [address] [place], [address] Eosinophils/100 WBC (Bld) 2.2 % Normal 0-5 [facility] Comment on above: Performed By: #### L 100.0100, L500.2500 ####[facility] [address] [place], [address] Erythrocyte distribution width (RBC) [Ratio] 13.9 % Normal 11.6-14.6 [facility] Comment on above: Performed By: #### L 100.0100, L500.2500 ####[facility] [address] [place], [address] Hematocrit (Bld) [Volume fraction] 36.1 % Low 37-47 [facility] Comment on above: Performed By: #### L 100.0100, L500.2500 ####[facility] [address] [place], [address] Hemoglobin (Bld) [Mass/Vol] 11.9 g/dL Low 12.0-15. 0 [facility] Comment on above: Performed By: #### L 100.0100, L500.2500 ####[facility] [address] [place], [address] IG% 0.500 Normal 0.0-0.9 [facility] Comment on above: Result Comment: IG% - Immature Granulocytes (promyelocytes, myelocytes andmetamyelocytes) > 1% indicates that a LEFT SHIFT is Present. Performed By: #### L 100.0100, L500.2500 ####[facility] [address] [place], [address] Lymphocytes/100 WBC (Bld) 21.3 % Normal 19-41 [facility] Comment on above: Performed By: #### L 100.0100, L500.2500 ####[facility] [address] [place], [address] MCH (RBC) [Entitic mass] 32.4 pg High 27.0-32.0 [facility] Comment on above: Performed By: #### L 100.0100, L500.2500 ####[facility] [address] [place], [address] MCHC (RBC) [Mass/Vol] 33.0 g/dL Normal 32-36 [facility] Comment on above: Performed By: #### L 100.0100, L500.2500 ####[facility] [address] [place], [address] MCV (RBC) [Entitic vol] 98.4 fL Normal 81-99 [facility] Comment on above: Performed By: #### L 100.0100, L500.2500 ####[facility] [address] [place], [address] Monocytes/100 WBC (Bld) 10.3 % High 0-10 [facility] Comment on above: Performed By: #### L 100.0100, L500.2500 ####[facility] [address] [place], [address] Neutrophils/100 WBC (Bld) 64.7 % Normal 47-70 [facility] Comment on above: Performed By: #### L 100.0100, L500.2500 ####[facility] [address] [place], [address] Nucleated RBC (Bld) [#/Vol] 0 10*3/uL Normal 0-5 [facility] Comment on above: Performed By: #### L 100.0100, L500.2500 ####[facility] [address] [place], [address] Platelet mean volume (Bld) [Entitic vol] 8.8 fL Normal 6.2-12.0 [facility] Comment on above: Performed By: #### L 100.0100, L500.2500 ####[facility] [address] [place], [address] Platelets (Bld) [#/Vol] 265 10*3/uL Normal 150-450 [facility] Comment on above: Performed By: #### L 100.0100, L500.2500 ####[facility] [address] [place], [address] RBC (Bld) [#/Vol] 3.67 10*6/uL Low 4.2-5.4 [facility] Comment on above: Performed By: #### L 100.0100, L500.2500 ####[facility] [address] [place], [address] RDW SD 50.2 fl High 35.1-43.9 [facility] Comment on above: Performed By: #### L 100.0100, L500.2500 ####[facility] [address] [place], [address] WBC (Bld) [#/Vol] 6.0 10*3/uL Normal 4.4-11.0 [facility] Comment on above: Performed By: #### L 100.0100, L500.2500 ####[facility] [address] [place], [address] Basic Metabolic Profile (BMP )on 04-23-2024 BUN/CRE 33.6 RATIO High 10-20 [facility] Comment on above: Performed By: #### L 100.0100, L500.2500 ####[facility] [address] [place], [address] CA,Total 8.8 mg/dL Normal 8.5-10.1 [facility] Comment on above: Performed By: #### L 100.0100, L500.2500 ####[facility] [address] [place], [address] Chloride [Moles/Vol] 108 mmol/L High 98-107 [facility] Comment on above: Performed By: #### L 100.0100, L500.2500 ####[facility] [address] [place], [address] CO2 [Moles/Vol] 22.0 mmol/L Normal 21.0-32.0 [facility] Comment on above: Performed By: #### L 100.0100, L500.2500 ####[facility] [address] [place], [address] Creatinine [Mass/Vol] 0.68 mg/dL Normal 0.55-1.02 [facility] Comment on above: Result Comment: The validity of the calculated GFR GFRAA in patients over70 years has not been determined. Clinical correlation isessential. Performed By: #### L 100.0100, L500.2500 ####[facility] [address] [place], [address] ECRCL 50.54 ml/min Normal [facility] Comment on above: Performed By: #### L 100.0100, L500.2500 ####[facility] [address] [place], [address] EST GFR - AA 107 mL/min Normal >60 [facility] Comment on above: Result Comment: Afri can Uzbek GFR Calc Performed By: #### L 100.0100, L500.2500 ####[facility] [address] [place], [address] GAP 6 Normal 5-15 [facility] Comment on above: Performed By: #### L 100.0100, L500.2500 ####[facility] [address] [place], [address] GFR/1.73 sq M.predicted among non-blacks MDRD (S/P/Bld) [Vol rate/Area] 88 mL/min/{1.73_m2} Normal >60 [facility] Comment on above: Result Comment: Non- GFR Calc Performed By: #### L 100.0100, L500.2500 ####[facility] [address] [place], [address] Glucose [Mass/Vol] 97 mg/dL Normal 74-106 [facility] Comment on above: Performed By: #### L 100.0100, L500.2500 ####[facility] [address] [place], [address] Potassium [Moles/Vol] 4.6 mmol/L Normal 3.5-5.1 [facility] Comment on above: Performed By: #### L 100.0100, L500.2500 ####[facility] [address], [address] Sodium [Moles/Vol] 136 mmol/L Normal 136-145 [facility] Comment on above: Performed By: #### L 100.0100, L500.2500 ####[facility] [address] [place], [address] Urea nitrogen [Mass/Vol] 23 mg/dL High 7-18 [facility] Comment on above: Performed By: #### L 100.0100, L500.2500 ####[facility] [address] [place], [address] CBC W/Diff, Automatedon 01-2 -2024 Absolute Lymph 1.47 X10 3/uL Normal 0.83-4.51 [facility] Comment on above: Performed By: #### L 100.0100, L500.2500 ####[facility] [address] [place], [address] Absolute Neut 4.2 X10 3/uL Normal 2.0-7.7 [facility] Comment on above: Performed By: #### L 100.0100, L500.2500 ####[facility] [address] [place], [address] Basophils/100 WBC (Bld) 0.6 % Normal 0-1 [facility] Comment on above: Performed By: #### L 100.0100, L500.2500 ####[facility] [address] [place], [address] Eosinophils/100 WBC (Bld) 2.1 % Normal 0-5 [facility] Comment on above: Performed By: #### L 100.0100, L500.2500 ####[facility] [address] [place], [address] Erythrocyte distribution width (RBC) [Ratio] 13.2 % Normal 11.6-14.6 [facility] Comment on above: Performed By: #### L 100.0100, L500.2500 ####[facility] [address] [place], [address] Hematocrit (Bld) [Volume fraction] 34.8 % Low 37-47 [facility] Comment on above: Performed By: #### L 100.0100, L500.2500 ####[facility] [address] [place], [address] Hemoglobin (Bld) [Mass/Vol] 11.5 g/dL Low 12.0-15. 0 [facility] Comment on above: Performed By: #### L 100.0100, L500.2500 ####[facility] [address] [place], [address] IG% 2.400 High 0.0-0.9 [facility] Comment on above: Result Comment: IG% - Immature Granulocytes (promyelocytes, myelocytes andmetamyelocytes) > 1% indicates that a LEFT SHIFT is Present. Performed By: #### L 100.0100, L500.2500 ####[facility] [address] [place], [address] Lymphocytes/100 WBC (Bld) 22.0 % Normal 19-41 [facility] Comment on above: Performed By: #### L 100.0100, L500.2500 ####[facility] [address] [place], [address] MCH (RBC) [Entitic mass] 32.5 pg High 27.0-32.0 [facility] Comment on above: Performed By: #### L 100.0100, L500.2500 ####[facility] [address] [place], [address] MCHC (RBC) [Mass/Vol] 33.0 g/dL Normal 32-36 [facility] Comment on above: Performed By: #### L 100.0100, L500.2500 ####[facility] [address] [place], [address] MCV (RBC) [Entitic vol] 98.3 fL Normal 81-99 [facility] Comment on above: Performed By: #### L 100.0100, L500.2500 ####[facility] [address] [place], [address] Monocytes/100 WBC (Bld) 10.3 % High 0-10 [facility] Comment on above: Performed By: #### L 100.0100, L500.2500 ####[facility] [address] [place], [address] Neutrophils/100 WBC (Bld) 62.6 % Normal 47-70 [facility] Comment on above: Performed By: #### L 100.0100, L500.2500 ####[facility] [address] [place], [address] Nucleated RBC (Bld) [#/Vol] 0 10*3/uL Normal 0-5 [facility] Comment on above: Performed By: #### L 100.0100, L500.2500 ####[facility] [address] [place], [address] Platelet mean volume (Bld) [Entitic vol] 9.0 fL Normal 6.2-12.0 [facility] Comment on above: Performed By: #### L 100.0100, L500.2500 ####[facility] [address] [place], [address] Platelets (Bld) [#/Vol] 263 10*3/uL Normal 150-450 [facility] Comment on above: Performed By: #### L 100.0100, L500.2500 ####[facility] [address] [place], [address] RBC (Bld) [#/Vol] 3.54 10*6/uL Low 4.2-5.4 [facility] Comment on above: Performed By: #### L 100.0100, L500.2500 ####[facility] [address] [place], [address] RDW SD 47.7 fl High 35.1-43.9 [facility] Comment on above: Performed By: #### L 100.0100, L500.2500 ####[facility] [address] [place], [address] WBC (Bld) [#/Vol] 6.7 10*3/uL Normal 4.4-11.0 [facility] Comment on above: Performed By: #### L 100.0100, L500.2500 ####[facility] [address] [place], [address] Basic Metabolic Profile (BMP )on 04-19-2024 BUN Normal 7-18 [facility] Comment on above: Result Comment: Canc elled via OM: Order cancelled - Patient discharged Performed By: #### L 100.0500, L500.2500 ####[facility] [address] [place], [address] BUN/CRE Normal 10-20 [facility] Comment on above: Result Comment: Canc elled via OM: Order cancelled - Patient discharged Performed By: #### L 100.0500, L500.2500 ####[facility] [address] [place], [address] CA,Total Normal 8.5-10.1 [facility] Comment on above: Result Comment: Canc elled via OM: Order cancelled - Patient discharged Performed By: #### L 100.0500, L500.2500 ####[facility] [address] [place], [address] CL Normal 98-107 [facility] Comment on above: Result Comment: Canc elled via OM: Order cancelled - Patient discharged Performed By: #### L 100.0500, L500.2500 ####[facility] [address] [place], [address] CO2 Normal 21.0-32.0 [facility] Comment on above: Result Comment: Canc elled via OM: Order cancelled - Patient discharged Performed By: #### L 100.0500, L500.2500 ####[facility] [address] [place], [address] CREAT,SERUM Normal 0.55-1.02 [facility] Comment on above: Result Comment: Canc elled via OM: Order cancelled - Patient discharged Performed By: #### L 100.0500, L500.2500 ####[facility] [address] [place], [address] EST GFR Normal >60 [facility] Comment on above: Result Comment: Canc elled via OM: Order cancelled - Patient discharged Performed By: #### L 100.0500, L500.2500 ####[facility] [address] [place], [address] EST GFR - AA Normal >60 [facility] Comment on above: Result Comment: Canc elled via OM: Order cancelled - Patient discharged Performed By: #### L 100.0500, L500.2500 ####[facility] [address] [place], [address] GAP Normal 5-15 [facility] Comment on above: Result Comment: Canc elled via OM: Order cancelled - Patient discharged Performed By: #### L 100.0500, L500.2500 ####[facility] [address] [place], [address] GLU Normal 74-106 [facility] Comment on above: Result Comment: Canc elled via OM: Order cancelled - Patient discharged Performed By: #### L 100.0500, L500.2500 ####[facility] [address] [place], [address] Potassium Normal 3.5-5.1 [facility] Comment on above: Result Comment: Canc elled via OM: Order cancelled - Patient discharged Performed By: #### L 100.0500, L500.2500 ####[facility] [address] [place], [address] Basic Metabolic Profile (BMP) Normal 136-145 [facility] Comment on above: Result Comment: Canc elled via OM: Order cancelled - Patient discharged Performed By: #### L 100.0500, L500.2500 ####[facility] [address] [place], [address] CBC-Complete Blood Cnt No Di ffon 04-19-2024 HCT Normal 37-47 [facility] Comment on above: Result Comment: Canc elled via OM: Order cancelled - Patient discharged Performed By: #### L 100.0500, L500.2500 ####[facility] [address] [place], [address] HGB Normal 12.0-15.0 [facility] Comment on above: Result Comment: Canc elled via OM: Order cancelled - Patient discharged Performed By: #### L 100.0500, L500.2500 ####[facility] [address] [place], [address] MCH Normal 27.0-32.0 [facility] Comment on above: Result Comment: Canc elled via OM: Order cancelled - Patient discharged Performed By: #### L 100.0500, L500.2500 ####[facility] [address] [place], [address] MCHC Normal 32-36 [facility] Comment on above: Result Comment: Canc elled via OM: Order cancelled - Patient discharged Performed By: #### L 100.0500, L500.2500 ####[facility] [address] [place], [address] MCV Normal 81-99 [facility] Comment on above: Result Comment: Canc elled via OM: Order cancelled - Patient discharged Performed By: #### L 100.0500, L500.2500 ####[facility] [address] [place], [address] PLT Normal 150-450 [facility] Comment on above: Result Comment: Canc elled via OM: Order cancelled - Patient discharged Performed By: #### L 100.0500, L500.2500 ####[facility] [address] [place], [address] RBC Normal 4.2-5.4 [facility] Comment on above: Result Comment: Canc elled via OM: Order cancelled - Patient discharged Performed By: #### L 100.0500, L500.2500 ####[facility] [address] [place], [address] RDW CV Normal 11.6-14.6 [facility] Comment on above: Result Comment: Canc elled via OM: Order cancelled - Patient discharged Performed By: #### L 100.0500, L500.2500 ####[facility] [address] [place], [address] RDW SD Normal 35.1-43.9 [facility] Comment on above: Result Comment: Canc elled via OM: Order cancelled - Patient discharged Performed By: #### L 100.0500, L500.2500 ####[facility] [address] [place], [address] WBC Normal 4.4-11.0 [facility] Comment on above: Result Comment: Canc elled via OM: Order cancelled - Patient discharged Performed By: #### L 100.0500, L500.2500 ####[facility] [address] [place], [address] Basic Metabolic Profile (BMP )on 04-18-2024 BUN Normal 7-18 [facility] Comment on above: Result Comment: Canc elled via OM: Order cancelled - Patient discharged Performed By: #### L 100.0500, L500.2500 ####[facility] [address] [place], [address] BUN/CRE Normal 10-20 [facility] Comment on above: Result Comment: Canc elled via OM: Order cancelled - Patient discharged Performed By: #### L 100.0500, L500.2500 ####[facility] [address] [place], [address] CA,Total Normal 8.5-10.1 [facility] Comment on above: Result Comment: Canc elled via OM: Order cancelled - Patient discharged Performed By: #### L 100.0500, L500.2500 ####[facility] [address] [place], [address] CL Normal 98-107 [facility] Comment on above: Result Comment: Canc elled via OM: Order cancelled - Patient discharged Performed By: #### L 100.0500, L500.2500 ####[facility] [address] [place], [address] CO2 Normal 21.0-32.0 [facility] Comment on above: Result Comment: Canc elled via OM: Order cancelled - Patient discharged Performed By: #### L 100.0500, L500.2500 ####[facility] [address] [place], [address] CREAT,SERUM Normal 0.55-1.02 [facility] Comment on above: Result Comment: Canc elled via OM: Order cancelled - Patient discharged Performed By: #### L 100.0500, L500.2500 ####[facility] [address] [place], [address] EST GFR Normal >60 [facility] Comment on above: Result Comment: Canc elled via OM: Order cancelled - Patient discharged Performed By: #### L 100.0500, L500.2500 ####[facility] [address] [place], [address] EST GFR - AA Normal >60 [facility] Comment on above: Result Comment: Canc elled via OM: Order cancelled - Patient discharged Performed By: #### L 100.0500, L500.2500 ####[facility] [address] [place], [address] GAP Normal 5-15 [facility] Comment on above: Result Comment: Canc elled via OM: Order cancelled - Patient discharged Performed By: #### L 100.0500, L500.2500 ####[facility] [address] [place], [address] GLU Normal 74-106 [facility] Comment on above: Result Comment: Canc elled via OM: Order cancelled - Patient discharged Performed By: #### L 100.0500, L500.2500 ####[facility] [address] [place], [address] Potassium Normal 3.5-5.1 [facility] Comment on above: Result Comment: Canc elled via OM: Order cancelled - Patient discharged Performed By: #### L 100.0500, L500.2500 ####[facility] [address] [place], [address] Basic Metabolic Profile (BMP) Normal 136-145 [facility] Comment on above: Result Comment: Canc elled via OM: Order cancelled - Patient discharged Performed By: #### L 100.0500, L500.2500 ####[facility] [address] [place], [address] CBC-Complete Blood Cnt No Di ffon 04-18-2024 HCT Normal 37-47 [facility] Comment on above: Result Comment: Canc elled via OM: Order cancelled - Patient discharged Performed By: #### L 100.0500, L500.2500 ####[facility] [address] [place], [address] HGB Normal 12.0-15.0 [facility] Comment on above: Result Comment: Canc elled via OM: Order cancelled - Patient discharged Performed By: #### L 100.0500, L500.2500 ####[facility] [address] [place], [address] MCH Normal 27.0-32.0 [facility] Comment on above: Result Comment: Canc elled via OM: Order cancelled - Patient discharged Performed By: #### L 100.0500, L500.2500 ####[facility] [address] [place], [address] MCHC Normal 32-36 [facility] Comment on above: Result Comment: Canc elled via OM: Order cancelled - Patient discharged Performed By: #### L 100.0500, L500.2500 ####[facility] [address] [place], [address] MCV Normal 81-99 [facility] Comment on above: Result Comment: Canc elled via OM: Order cancelled - Patient discharged Performed By: #### L 100.0500, L500.2500 ####[facility] [address] [place], [address] PLT Normal 150-450 [facility] Comment on above: Result Comment: Canc elled via OM: Order cancelled - Patient discharged Performed By: #### L 100.0500, L500.2500 ####[facility] [address] [place], [address] RBC Normal 4.2-5.4 [facility] Comment on above: Result Comment: Canc elled via OM: Order cancelled - Patient discharged Performed By: #### L 100.0500, L500.2500 ####[facility] [address] [place], [address] RDW CV Normal 11.6-14.6 [facility] Comment on above: Result Comment: Canc elled via OM: Order cancelled - Patient discharged Performed By: #### L 100.0500, L500.2500 ####[facility] [address] [place], [address] RDW SD Normal 35.1-43.9 [facility] Comment on above: Result Comment: Canc elled via OM: Order cancelled - Patient discharged Performed By: #### L 100.0500, L500.2500 ####[facility] [address] [place], [address] WBC Normal 4.4-11.0 [facility] Comment on above: Result Comment: Canc elled via OM: Order cancelled - Patient discharged Performed By: #### L 100.0500, L500.2500 ####[facility] [address] [place], [address] Basic Metabolic Profile (BMP )on 04-17-2024 BUN Normal 7-18 [facility] Comment on above: Result Comment: Canc elled via OM: Order cancelled - Patient discharged Performed By: #### L 500.2500, L100.0500 ####[facility] [address] [place], [address] BUN/CRE Normal 10-20 [facility] Comment on above: Result Comment: Canc elled via OM: Order cancelled - Patient discharged Performed By: #### L 500.2500, L100.0500 ####[facility] [address] [place], [address] CA,Total Normal 8.5-10.1 [facility] Comment on above: Result Comment: Canc elled via OM: Order cancelled - Patient discharged Performed By: #### L 500.2500, L100.0500 ####[facility] [address] [place], [address] CL Normal 98-107 [facility] Comment on above: Result Comment: Canc elled via OM: Order cancelled - Patient discharged Performed By: #### L 500.2500, L100.0500 ####[facility] [address] [place], [address] CO2 Normal 21.0-32.0 [facility] Comment on above: Result Comment: Canc elled via OM: Order cancelled - Patient discharged Performed By: #### L 500.2500, L100.0500 ####[facility] [address] [place], [address] CREAT,SERUM Normal 0.55-1.02 [facility] Comment on above: Result Comment: Canc elled via OM: Order cancelled - Patient discharged Performed By: #### L 500.2500, L100.0500 ####[facility] [address] [place], [address] EST GFR Normal >60 [facility] Comment on above: Result Comment: Canc elled via OM: Order cancelled - Patient discharged Performed By: #### L 500.2500, L100.0500 ####[facility] [address] [place], [address] EST GFR - AA Normal >60 [facility] Comment on above: Result Comment: Canc elled via OM: Order cancelled - Patient discharged Performed By: #### L 500.2500, L100.0500 ####[facility] [address] [place], [address] GAP Normal 5-15 [facility] Comment on above: Result Comment: Canc elled via OM: Order cancelled - Patient discharged Performed By: #### L 500.2500, L100.0500 ####[facility] [address] [place], [address] GLU Normal 74-106 [facility] Comment on above: Result Comment: Canc elled via OM: Order cancelled - Patient discharged Performed By: #### L 500.2500, L100.0500 ####[facility] [address] [place], [address] Potassium Normal 3.5-5.1 [facility] Comment on above: Result Comment: Canc elled via OM: Order cancelled - Patient discharged Performed By: #### L 500.2500, L100.0500 ####[facility] [address] [place], [address] Basic Metabolic Profile (BMP) Normal 136-145 [facility] Comment on above: Result Comment: Canc elled via OM: Order cancelled - Patient discharged Performed By: #### L 500.2500, L100.0500 ####[facility] [address] [place], [address] BUN/CRE 36.8 RATIO High 10-20 [facility] Comment on above: Performed By: #### L 100.0100, L500.2500 ####[facility] [address] [place], [address] CA,Total 8.9 mg/dL Normal 8.5-10.1 [facility] Comment on above: Performed By: #### L 100.0100, L500.2500 ####[facility] [address] [place], [address] Chloride [Moles/Vol] 106 mmol/L Normal 98-107 [facility] Comment on above: Performed By: #### L 100.0100, L500.2500 ####[facility] [address] [place], [address] CO2 [Moles/Vol] 23.0 mmol/L Normal 21.0-32.0 [facility] Comment on above: Performed By: #### L 100.0100, L500.2500 ####[facility] [address] [place], [address] Creatinine [Mass/Vol] 0.71 mg/dL Normal 0.55-1.02 [facility] Comment on above: Result Comment: The validity of the calculated GFR GFRAA in patients over70 years has not been determined. Clinical correlation isessential. Performed By: #### L 100.0100, L500.2500 ####[facility] [address] [place], [address] ECRCL 50.11 ml/min Normal [facility] Comment on above: Performed By: #### L 100.0100, L500.2500 ####[facility] [address] [place], [address] EST GFR - AA 103 mL/min Normal >60 [facility] Comment on above: Result Comment: Afri can Uzbek GFR Calc Performed By: #### L 100.0100, L500.2500 ####[facility] [address] [place], [address] GAP 6 Normal 5-15 [facility] Comment on above: Performed By: #### L 100.0100, L500.2500 ####[facility] [address] [place], [address] GFR/1.73 sq M.predicted among non-blacks MDRD (S/P/Bld) [Vol rate/Area] 85 mL/min/{1.73_m2} Normal >60 [facility] Comment on above: Result Comment: Non- GFR Calc Performed By: #### L 100.0100, L500.2500 ####[facility] [address] [place], [address] Glucose [Mass/Vol] 108 mg/dL High 74-106 [facility] Comment on above: Result Comment: Fast ing Glucose result from 100 to 125 mg/dLsuggests IMPAIRED HOMEOSTASIS per A.D.A. criteria. Performed By: #### L 100.0100, L500.2500 ####[facility] [address] [place], [address] Potassium [Moles/Vol] 4.2 mmol/L Normal 3.5-5.1 [facility] Comment on above: Performed By: #### L 100.0100, L500.2500 ####[facility] [address] [place], [address] Sodium [Moles/Vol] 135 mmol/L Low 136-145 [facility] Comment on above: Performed By: #### L 100.0100, L500.2500 ####[facility] [address] [place], [address] Urea nitrogen [Mass/Vol] 26 mg/dL High 7-18 [facility] Comment on above: Performed By: #### L 100.0100, L500.2500 ####[facility] [address] [place], [address] CBC W/Diff, Automatedon 03-31 Absolute Lymph 1.39 X10 3/uL Normal 0.83-4.51 [facility] Comment on above: Performed By: #### L 100.0100, L500.2500 ####[facility] [address] [place], [address] Absolute Neut 5.3 X10 3/uL Normal 2.0-7.7 [facility] Comment on above: Performed By: #### L 100.0100, L500.2500 ####[facility] [address] [place], [address] Basophils/100 WBC (Bld) 0.3 % Normal 0-1 [facility] Comment on above: Performed By: #### L 100.0100, L500.2500 ####[facility] [address] [place], [address] Eosinophils/100 WBC (Bld) 0.3 % Normal 0-5 [facility] Comment on above: Performed By: #### L 100.0100, L500.2500 ####[facility] [address] [place], [address] Erythrocyte distribution width (RBC) [Ratio] 13.0 % Normal 11.6-14.6 [facility] Comment on above: Performed By: #### L 100.0100, L500.2500 ####[facility] [address] [place], [address] Hematocrit (Bld) [Volume fraction] 35.2 % Low 37-47 [facility] Comment on above: Performed By: #### L 100.0100, L500.2500 ####[facility] [address] [place], [address] Hemoglobin (Bld) [Mass/Vol] 11.4 g/dL Low 12.0-15. 0 [facility] Comment on above: Performed By: #### L 100.0100, L500.2500 ####[facility] [address] [place], [address] IG% 0.300 Normal 0.0-0.9 [facility] Comment on above: Result Comment: IG% - Immature Granulocytes (promyelocytes, myelocytes andmetamyelocytes) > 1% indicates that a LEFT SHIFT is Present. Performed By: #### L 100.0100, L500.2500 ####[facility] [address] [place], [address] Lymphocytes/100 WBC (Bld) 18.8 % Low 19-41 [facility] Comment on above: Performed By: #### L 100.0100, L500.2500 ####[facility] [address] [place], [address] MCH (RBC) [Entitic mass] 31.7 pg Normal 27.0-32.0 [facility] Comment on above: Performed By: #### L 100.0100, L500.2500 ####[facility] [address] [place], [address] MCHC (RBC) [Mass/Vol] 32.4 g/dL Normal 32-36 [facility] Comment on above: Performed By: #### L 100.0100, L500.2500 ####[facility] [address] [place], [address] MCV (RBC) [Entitic vol] 97.8 fL Normal 81-99 [facility] Comment on above: Performed By: #### L 100.0100, L500.2500 ####[facility] [address] [place], [address] Monocytes/100 WBC (Bld) 8.3 % Normal 0-10 W [facility] Comment on above: Performed By: #### L 100.0100, L500.2500 ####[facility] [address] [place], [address] Neutrophils/100 WBC (Bld) 72.0 % High 47-70 [facility] Comment on above: Performed By: #### L 100.0100, L500.2500 ####[facility] [address] [place], [address] Nucleated RBC (Bld) [#/Vol] 0 10*3/uL Normal 0-5 [facility] Comment on above: Performed By: #### L 100.0100, L500.2500 ####[facility] [address] [place], [address] Platelet mean volume (Bld) [Entitic vol] 9.0 fL Normal 6.2-12.0 [facility] Comment on above: Performed By: #### L 100.0100, L500.2500 ####[facility] [address] [place], [address] Platelets (Bld) [#/Vol] 261 10*3/uL Normal 150-450 [facility] Comment on above: Performed By: #### L 100.0100, L500.2500 ####[facility] [address] [place], [address] RBC (Bld) [#/Vol] 3.60 10*6/uL Low 4.2-5.4 [facility] Comment on above: Performed By: #### L 100.0100, L500.2500 ####[facility] [address] [place], [address] RDW SD 46.8 fl High 35.1-43.9 [facility] Comment on above: Performed By: #### L 100.0100, L500.2500 ####[facility] [address] [place], [address] WBC (Bld) [#/Vol] 7.4 10*3/uL Normal 4.4-11.0 [facility] Comment on above: Performed By: #### L 100.0100, L500.2500 ####[facility] [address] [place], [address] CBC-Complete Blood Cnt No Di ffon 04-17-2024 HCT Normal 37-47 [facility] Comment on above: Result Comment: Canc elled via OM: Order cancelled - Patient discharged Performed By: #### L 500.2500, L100.0500 ####[facility] [address] [place], [address] HGB Normal 12.0-15.0 [facility] Comment on above: Result Comment: Canc elled via OM: Order cancelled - Patient discharged Performed By: #### L 500.2500, L100.0500 ####[facility] [address] [place], [address] MCH Normal 27.0-32.0 [facility] Comment on above: Result Comment: Canc elled via OM: Order cancelled - Patient discharged Performed By: #### L 500.2500, L100.0500 ####[facility] [address] [place], [address] MCHC Normal 32-36 [facility] Comment on above: Result Comment: Canc elled via OM: Order cancelled - Patient discharged Performed By: #### L 500.2500, L100.0500 ####[facility] [address] [place], [address] MCV Normal 81-99 [facility] Comment on above: Result Comment: Canc elled via OM: Order cancelled - Patient discharged Performed By: #### L 500.2500, L100.0500 ####[facility] [address] [place], [address] PLT Normal 150-450 [facility] Comment on above: Result Comment: Canc elled via OM: Order cancelled - Patient discharged Performed By: #### L 500.2500, L100.0500 ####[facility] [address] [place], [address] RBC Normal 4.2-5.4 [facility] Comment on above: Result Comment: Canc elled via OM: Order cancelled - Patient discharged Performed By: #### L 500.2500, L100.0500 ####[facility] [address] [place], [address] RDW CV Normal 11.6-14.6 [facility] Comment on above: Result Comment: Canc elled via OM: Order cancelled - Patient discharged Performed By: #### L 500.2500, L100.0500 ####[facility] [address] [place], [address] RDW SD Normal 35.1-43.9 [facility] Comment on above: Result Comment: Canc elled via OM: Order cancelled - Patient discharged Performed By: #### L 500.2500, L100.0500 ####[facility] [address] [place], [address] WBC Normal 4.4-11.0 [facility] Comment on above: Result Comment: Canc elled via OM: Order cancelled - Patient discharged Performed By: #### L 500.2500, L100.0500 ####[facility] [address] [place], [address] Basic Metabolic Profile (BMP )on 04-16-2024 BUN/CRE 31.0 RATIO High 10-20 [facility] Comment on above: Performed By: #### L 500.2500, L100.0500 ####[facility] [address] [place], [address] CA,Total 9.3 mg/dL Normal 8.5-10.1 [facility] Comment on above: Performed By: #### L 500.2500, L100.0500 ####[facility] [address] [place], [address] Chloride [Moles/Vol] 107 mmol/L Normal 98-107 [facility] Comment on above: Performed By: #### L 500.2500, L100.0500 ####[facility] [address] [place], [address] CO2 [Moles/Vol] 25.0 mmol/L Normal 21.0-32.0 [facility] Comment on above: Performed By: #### L 500.2500, L100.0500 ####[facility] [address] [place], [address] Creatinine [Mass/Vol] 0.68 mg/dL Normal 0.55-1.02 [facility] Comment on above: Result Comment: The validity of the calculated GFR GFRAA in patients over70 years has not been determined. Clinical correlation isessential. Performed By: #### L 500.2500, L100.0500 ####[facility] [address] [place], [address] ECRCL 50.81 ml/min Normal [facility] Comment on above: Performed By: #### L 500.2500, L100.0500 ####[facility] [address] [place], [address] EST GFR - AA 108 mL/min Normal >60 [facility] Comment on above: Result Comment: Afri can Uzbek GFR Calc Performed By: #### L 500.2500, L100.0500 ####[facility] [address] [place], [address] GAP 5 Normal 5-15 [facility] Comment on above: Performed By: #### L 500.2500, L100.0500 ####[facility] [address] [place], [address] GFR/1.73 sq M.predicted among non-blacks MDRD (S/P/Bld) [Vol rate/Area] 89 mL/min/{1.73_m2} Normal >60 [facility] Comment on above: Result Comment: Non- GFR Calc Performed By: #### L 500.2500, L100.0500 ####[facility] [address] [place], [address] Glucose [Mass/Vol] 113 mg/dL High 74-106 [facility] Comment on above: Result Comment: Fast ing Glucose result from 100 to 125 mg/dLsuggests IMPAIRED HOMEOSTASIS per A.D.A. criteria. Performed By: #### L 500.2500, L100.0500 ####[facility] [address] [place], [address] Potassium [Moles/Vol] 4.5 mmol/L Normal 3.5-5.1 [facility] Comment on above: Performed By: #### L 500.2500, L100.0500 ####[facility] [address] [place], [address] Sodium [Moles/Vol] 137 mmol/L Normal 136-145 [facility] Comment on above: Performed By: #### L 500.2500, L100.0500 ####[facility] [address] [place], [address] Urea nitrogen [Mass/Vol] 21 mg/dL High 7-18 [facility] Comment on above: Performed By: #### L 500.2500, L100.0500 ####[facility] [address] [place], [address] Blood urea nitrogen (BUN)/cr eatinine ratioOrdered By: Lesli Watkins on 04-16-2024 Urea nitrogen/Creatinine [Mass ratio] 31.0 mg/mg High - [facility] Blood urea nitrogen (BUN)/creatinine ratio 31.0 RATIO High - [facility] CBC-Complete Blood Cnt No Di ffon 04-16-2024 Erythrocyte distribution width (RBC) [Ratio] 13.0 % Normal 11.6-14.6 [facility] Comment on above: Performed By: #### L 500.2500, L100.0500 ####[place] [facility] [address] [place], [address] Hematocrit (Bld) [Volume fraction] 36.8 % Low 37-47 [facility] Comment on above: Performed By: #### L 500.2500, L100.0500 ####[facility] [address], [address] Hemoglobin (Bld) [Mass/Vol] 11.9 g/dL Low 12.0-15. 0 [facility] Comment on above: Performed By: #### L 500.2500, L100.0500 ####[facility] [address] [place], [address] MCH (RBC) [Entitic mass] 31.6 pg Normal 27.0-32.0 [facility] Comment on above: Performed By: #### L 500.2500, L100.0500 ####[facility] [address] [place], [address] MCHC (RBC) [Mass/Vol] 32.3 g/dL Normal 32-36 [facility] Comment on above: Performed By: #### L 500.2500, L100.0500 ####[facility] [address] [place], [address] MCV (RBC) [Entitic vol] 97.6 fL Normal 81-99 [facility] Comment on above: Performed By: #### L 500.2500, L100.0500 ####[facility] [address] [place], [address] Platelet mean volume (Bld) [Entitic vol] 8.8 fL Normal 6.2-12.0 [facility] Comment on above: Performed By: #### L 500.2500, L100.0500 ####[facility] [address] [place], [address] Platelets (Bld) [#/Vol] 252 10*3/uL Normal 150-450 [facility] Comment on above: Performed By: #### L 500.2500, L100.0500 ####[facility] [address] [place], [address] RBC (Bld) [#/Vol] 3.77 10*6/uL Low 4.2-5.4 [facility] Comment on above: Performed By: #### L 500.2500, L100.0500 ####[facility] [address] [place], [address] RDW SD 46.3 fl High 35.1-43.9 [facility] Comment on above: Performed By: #### L 500.2500, L100.0500 ####[facility] [address] [place], [address] WBC (Bld) [#/Vol] 8.7 10*3/uL Normal 4.4-11.0 [facility] Comment on above: Performed By: #### L 500.2500, L100.0500 ####[facility] [address] [place], [address] Calcium [Mass/Vol]Ordered By : Lesli Watkins on 04-16-2024 Serum or plasma calcium measurement (mass/volume) 9.3 mg/dL 8.5-10.1 [facility] Carbon dioxide measurementOr dered By: Lesli Watkins on 04-16-2024 CO2 [Moles/Vol] 25.0 mmol/L 21.0-32.0 [facility] Carbon dioxide measurement 25.0 mmol/L 21.0-32. 0 [facility] Chloride measurementOrdered By: Lesli Watkins on 04-16-2024 Chloride [Moles/Vol] 107 mmol/L 98-107 [facility] Chloride measurement 107 mmol/L 98-107 [facility] Creatinine [Mass/Vol]Ordered By: Lesli Watkins on 04-16-2024 Serum or plasma creatinine measurement (mass/volume) 0.68 mg/dL 0.55-1.02 [facility] Erythrocyte distribution wid th (RBC) [Ratio]Ordered By: Lesli Watkins on 04-16-2024 Erythrocyte distribution width ratio 13.0 % 11.6-14.6 [facility] Erythrocyte distribution width (RBC) [Entitic vol] 46.3 fL High 35.1-43.9 [facility] Erythrocyte distribution width standard deviation 46.3 fl High 35.1-43.9 [facility] Erythrocyte distribution wid th ratioOrdered By: Lesli Watkins on 04-16-2024 Erythrocyte distribution width (RBC) [Ratio] 13.0 % 11.6-14.6 [facility] Erythrocyte distribution wid th standard deviationOrdered By: Lesli Watkins on 04-16-2024 Erythrocyte distribution width (RBC) [Ratio] 46.3 fl High 35.1-43.9 [facility] Estimated glomerular filtrat ion rate (GFR) AmericanOrdered By: Lesli Watkins on 04-16-2024 Estimated GFR (MDRD) Amer 108 mL/min >60 [facility] Comment on above: GFR Calc Estimated glomerular filtration rate (GFR) 108 mL/min >60 [facility] Estimation of creatinine bharat aranceOrdered By: Lesli Watkins on 04-16-2024 Estimated Creatinine Clearance Calc 50.81 ml/min [facility] Estimation of creatinine clearance 50.81 ml/min [facility] Glomerular filtration rate ( GFR) estimationOrdered By: Lesli Watkins on 04-16-2024 Estimated GFR (MDRD) Non-Af Amer 89 mL/min >60 [facility] Comment on above: Non- GFR Calc GFR/1.73 sq M.predicted among non-blacks MDRD (S/P/Bld) [Vol rate/Area] 89 mL/min/{1.73_m2} >60 [facility] Glomerular filtration rate (GFR) estimation 89 mL/min >60 [facility] Glucose measurementOrdered B y: Lesli Watkins on 04-16-2024 Glucose [Mass/Vol] 113 mg/dL High 74-106 [facility] Comment on above: Fasting Glucose resu lt from 100 to 125 mg/dL suggests IMPAIRED HOMEOSTASIS per A.D.A. criteria. Glucose measurement 113 mg/dL High 74-106 [facility] Hematocrit Auto (Bld) [Volum e fraction]Ordered By: Lesli Watkins on 04-16-2024 Hematocrit (Bld) [Volume fraction] 36.8 % Low 37-47 [facility] Automated blood hematocrit (percentage) 36.8 % Low 37-47 [facility] Hemoglobin measurementOrdere d By: Lesli Watkins on 04-16-2024 Hemoglobin (Bld) [Mass/Vol] 11.9 g/dL Low 12.0-15. 0 [facility] Hemoglobin measurement 11.9 g/dL Low 12.0-15.0 [facility] MCV (RBC) [Entitic vol]Order ed By: Lesli Watkins on 04-16-2024 MCV (mean corpuscular volume) determination 97.6 fL 81-99 [facility] MCV (mean corpuscular volume ) determinationOrdered By: Lesli Watkins on 04-16-2024 MCV (RBC) [Entitic vol] 97.6 fL 81-99 [facility] Mean corpuscular hemoglobin (MCH) determinationOrdered By: Lesli Watkins on 04-16-2024 MCH (RBC) [Entitic mass] 31.6 pg 27.0-32.0 [facility] Mean corpuscular hemoglobin (MCH) determination 31.6 pg 27.0-32.0 [facility] Mean corpuscular hemoglobin concentration (MCHC) determinationOrdered By: Lesli Watkins on 04-16-2024 MCHC (RBC) [Mass/Vol] 32.3 g/dL 32-36 [facility] Mean corpuscular hemoglobin concentration (MCHC) determination 32.3 g/dL 32-36 [facility] Mean platelet volume determi nationOrdered By: Lesli Watkins on 04-16-2024 Platelet mean volume (Bld) [Entitic vol] 8.8 fL 6.2-12.0 [facility] Mean platelet volume determination 8.8 fl 6.2-12.0 [facility] Platelet countOrdered By: Gaby Watkins on 04-16-2024 Platelets (Bld) [#/Vol] 252 10*3/uL 150-450 [facility] Platelet count 252 K/mm3 150-450 [facility] Potassium measurementOrdered By: Lesli Watkins on 04-16-2024 Potassium [Moles/Vol] 4.5 mmol/L 3.5-5.1 [facility] Potassium measurement 4.5 mmol/L 3.5-5.1 [facility] RBC Auto (Bld) [#/Vol]Ordere d By: Lesli Watkins on 04-16-2024 RBC (Bld) [#/Vol] 3.77 10*6/uL Low 4.2-5.4 [facility] Automated blood erythrocyte count 3.77 M/mm3 Low 4.2-5.4 [facility] Serum anion gap measurementO rdered By: Lesli Watkins on 04-16-2024 Anion gap [Moles/Vol] 5 mmol/L 5-15 [facility] Serum anion gap measurement 5 5-15 [facility] Serum or plasma calcium gianluca urement (mass/volume)Ordered By: Lesli Watkins on 04-16-2024 Calcium [Mass/Vol] 9.3 mg/dL 8.5-10.1 [facility] Serum or plasma creatinine m easurement (mass/volume)Ordered By: Lesli Watkins on 04-16-2024 Creatinine [Mass/Vol] 0.68 mg/dL 0.55-1.02 [facility] Comment on above: The validity of the calculated GFR & GFRAA in patients over 70 years has not been determined. Clinical correlation is essential. Serum or plasma urea nitroge n measurement (mass/volume)Ordered By: Lesli Watkins on 04-16-2024 Urea nitrogen [Mass/Vol] 21 mg/dL High 10-15 [facility] Sodium levelOrdered By: Zeus Watkins on 04-16-2024 Sodium [Moles/Vol] 137 mmol/L 136-145 [facility] Sodium level 137 mmol/L 136-145 [facility] Urea nitrogen [Mass/Vol]Orde red By: Lesli Watkins on 04-16-2024 Serum or plasma urea nitrogen measurement (mass/volume) 21 mg/dL High 10-15 [facility] White blood cell (WBC) count Ordered By: Lesli Watkins on 04-16-2024 WBC (Bld) [#/Vol] 8.7 10*3/uL 4.4-11.0 [facility] White blood cell (WBC) count 8.7 K/mm3 4.4-11.0 [facility] Basic Metabolic Profile (BMP )on 04-15-2024 BUN/CRE 27.9 RATIO High 10-20 [facility] Comment on above: Performed By: #### L 500.2500, L100.0500 ####[facility] [address] [place], [address] CA,Total 9.2 mg/dL Normal 8.5-10.1 [facility] Comment on above: Performed By: #### L 500.2500, L100.0500 ####[facility] [address] [place], [address] Chloride [Moles/Vol] 107 mmol/L Normal 98-107 [facility] Comment on above: Performed By: #### L 500.2500, L100.0500 ####[facility] [address] [place], [address] CO2 [Moles/Vol] 26.0 mmol/L Normal 21.0-32.0 [facility] Comment on above: Performed By: #### L 500.2500, L100.0500 ####[facility] [address] [place], [address] Creatinine [Mass/Vol] 0.68 mg/dL Normal 0.55-1.02 [facility] Comment on above: Result Comment: The validity of the calculated GFR GFRAA in patients over70 years has not been determined. Clinical correlation isessential. Performed By: #### L 500.2500, L100.0500 ####[facility] [address] [place], [address] ECRCL 50.81 ml/min Normal [facility] Comment on above: Performed By: #### L 500.2500, L100.0500 ####[facility] [address] [place], [address] EST GFR - AA 107 mL/min Normal >60 [facility] Comment on above: Result Comment: Afri can Uzbek GFR Calc Performed By: #### L 500.2500, L100.0500 ####[facility] [address] [place], [address] GAP 5 Normal 5-15 [facility] Comment on above: Performed By: #### L 500.2500, L100.0500 ####[facility] [address] [place], [address] GFR/1.73 sq M.predicted among non-blacks MDRD (S/P/Bld) [Vol rate/Area] 89 mL/min/{1.73_m2} Normal >60 [facility] Comment on above: Result Comment: Non- GFR Calc Performed By: #### L 500.2500, L100.0500 ####[facility] [address] [place], [address] Glucose [Mass/Vol] 119 mg/dL High 74-106 [facility] Comment on above: Result Comment: Fast ing Glucose result from 100 to 125 mg/dLsuggests IMPAIRED HOMEOSTASIS per A.D.A. criteria. Performed By: #### L 500.2500, L100.0500 ####[facility] [address] [place], [address] Potassium [Moles/Vol] 4.4 mmol/L Normal 3.5-5.1 [facility] Comment on above: Performed By: #### L 500.2500, L100.0500 ####[facility] [address] [place], [address] Sodium [Moles/Vol] 138 mmol/L Normal 136-145 [facility] Comment on above: Performed By: #### L 500.2500, L100.0500 ####[facility] [address] [place], [address] Urea nitrogen [Mass/Vol] 19 mg/dL High 7-18 [facility] Comment on above: Performed By: #### L 500.2500, L100.0500 ####[facility] [address] [place], [address] CBC-Complete Blood Cnt No Di ffon 04-15-2024 Erythrocyte distribution width (RBC) [Ratio] 13.0 % Normal 11.6-14.6 [facility] Comment on above: Performed By: #### L 500.2500, L100.0500 ####[facility] [address] [place], [address] Hematocrit (Bld) [Volume fraction] 37.2 % Normal 37-47 [facility] Comment on above: Performed By: #### L 500.2500, L100.0500 ####[facility] [address] [place], [address] Hemoglobin (Bld) [Mass/Vol] 12.2 g/dL Normal 12.0-15. 0 [facility] Comment on above: Performed By: #### L 500.2500, L100.0500 ####[facility] [address] [place], [address] MCH (RBC) [Entitic mass] 31.9 pg Normal 27.0-32.0 [facility] Comment on above: Performed By: #### L 500.2500, L100.0500 ####[facility] [address] [place], [address] MCHC (RBC) [Mass/Vol] 32.8 g/dL Normal 32-36 [facility] Comment on above: Performed By: #### L 500.2500, L100.0500 ####[facility] [address] [place], [address] MCV (RBC) [Entitic vol] 97.4 fL Normal 81-99 [facility] Comment on above: Performed By: #### L 500.2500, L100.0500 ####[facility] [address] [place], [address] Platelet mean volume (Bld) [Entitic vol] 8.9 fL Normal 6.2-12.0 [facility] Comment on above: Performed By: #### L 500.2500, L100.0500 ####[facility] [address] [place], [address] Platelets (Bld) [#/Vol] 281 10*3/uL Normal 150-450 [facility] Comment on above: Performed By: #### L 500.2500, L100.0500 ####[facility] [address] [place], [address] RBC (Bld) [#/Vol] 3.82 10*6/uL Low 4.2-5.4 [facility] Comment on above: Performed By: #### L 500.2500, L100.0500 ####[facility] [address] [place], [address] RDW SD 46.1 fl High 35.1-43.9 [facility] Comment on above: Performed By: #### L 500.2500, L100.0500 ####[facility] [address] [place], [address] WBC (Bld) [#/Vol] 9.4 10*3/uL Normal 4.4-11.0 [facility] Comment on above: Performed By: #### L 500.2500, L100.0500 ####[facility] [address] [place], [address] 12 Lead EKGon 04-14-2024 12 Lead EKG Normal [facility] Basic Metabolic Profile (BMP )on 04-14-2024 BUN/CRE 25.0 RATIO High 10-20 [facility] Comment on above: Performed By: #### L 500.2500, L100.0500 ####[facility] [address] [place], [address] CA,Total 8.8 mg/dL Normal 8.5-10.1 [facility] Comment on above: Performed By: #### L 500.2500, L100.0500 ####[facility] [address] [place], [address] Chloride [Moles/Vol] 106 mmol/L Normal 98-107 [facility] Comment on above: Performed By: #### L 500.2500, L100.0500 ####[facility] [address] [place], [address] CO2 [Moles/Vol] 27.0 mmol/L Normal 21.0-32.0 [facility] Comment on above: Performed By: #### L 500.2500, L100.0500 ####[facility] [address] [place], [address] Creatinine [Mass/Vol] 0.80 mg/dL Normal 0.55-1.02 [facility] Comment on above: Result Comment: The validity of the calculated GFR GFRAA in patients over70 years has not been determined. Clinical correlation isessential. Performed By: #### L 500.2500, L100.0500 ####[facility] [address] [place], [address] ECRCL 50.81 ml/min Normal [facility] Comment on above: Performed By: #### L 500.2500, L100.0500 ####[facility] [address] [place], [address] EST GFR - AA 89 mL/min Normal >60 [facility] Comment on above: Result Comment: Afri can Uzbek GFR Calc Performed By: #### L 500.2500, L100.0500 ####[facility] [address] [place], [address] GAP 4 Low 5-15 [facility] Comment on above: Performed By: #### L 500.2500, L100.0500 ####[facility] [address] [place], [address] GFR/1.73 sq M.predicted among non-blacks MDRD (S/P/Bld) [Vol rate/Area] 74 mL/min/{1.73_m2} Normal >60 [facility] Comment on above: Result Comment: Non- GFR Calc Performed By: #### L 500.2500, L100.0500 ####[facility] [address] [place], [address] Glucose [Mass/Vol] 93 mg/dL Normal 74-106 [facility] Comment on above: Performed By: #### L 500.2500, L100.0500 ####[facility] [address] [place], [address] Potassium [Moles/Vol] 4.3 mmol/L Normal 3.5-5.1 [facility] Comment on above: Performed By: #### L 500.2500, L100.0500 ####[facility] [address] [place], [address] Sodium [Moles/Vol] 138 mmol/L Normal 136-145 [facility] Comment on above: Performed By: #### L 500.2500, L100.0500 ####[facility] [address] [place], [address] Urea nitrogen [Mass/Vol] 20 mg/dL High 7-18 [facility] Comment on above: Performed By: #### L 500.2500, L100.0500 ####[facility] [address] [place], [address] CBC-Complete Blood Cnt No Di ffon 04-14-2024 Erythrocyte distribution width (RBC) [Ratio] 13.1 % Normal 11.6-14.6 [facility] Comment on above: Performed By: #### L 500.2500, L100.0500 ####[facility] [address] [place], [address] Hematocrit (Bld) [Volume fraction] 36.1 % Low 37-47 [facility] Comment on above: Performed By: #### L 500.2500, L100.0500 ####[facility] [address] [place], [address] Hemoglobin (Bld) [Mass/Vol] 11.6 g/dL Low 12.0-15. 0 [facility] Comment on above: Performed By: #### L 500.2500, L100.0500 ####[facility] [address] [place], [address] MCH (RBC) [Entitic mass] 31.9 pg Normal 27.0-32.0 [facility] Comment on above: Performed By: #### L 500.2500, L100.0500 ####[facility] [address] [place], [address] MCHC (RBC) [Mass/Vol] 32.1 g/dL Normal 32-36 [facility] Comment on above: Performed By: #### L 500.2500, L100.0500 ####[facility] [address] [place], [address] MCV (RBC) [Entitic vol] 99.2 fL High 81-99 [address] [facility] Comment on above: Performed By: #### L 500.2500, L100.0500 ####[facility] [address] [place], [address] Platelet mean volume (Bld) [Entitic vol] 9.0 fL Normal 6.2-12.0 [facility] Comment on above: Performed By: #### L 500.2500, L100.0500 ####[facility] [address] [place], [address] Platelets (Bld) [#/Vol] 269 10*3/uL Normal 150-450 [facility] Comment on above: Performed By: #### L 500.2500, L100.0500 ####[facility] [address] [place], [address] RBC (Bld) [#/Vol] 3.64 10*6/uL Low 4.2-5.4 [facility] Comment on above: Performed By: #### L 500.2500, L100.0500 ####[facility] [address] [place], [address] RDW SD 47.4 fl High 35.1-43.9 [facility] Comment on above: Performed By: #### L 500.2500, L100.0500 ####[facility] [address] [place], [address] WBC (Bld) [#/Vol] 7.1 10*3/uL Normal 4.4-11.0 [facility] Comment on above: Performed By: #### L 500.2500, L100.0500 ####[facility] [address] [place], [address] Lumbar Spine 2 or 3 Viewson 04-14-2024 Lumbar Spine 2 or 3 Views Normal [facility] MR/POSTOP.ANEon 04-14-2024 MR/POSTOP.ANE Normal [facility] MR/IAJEVMII1tm 04-14-2024 MR/POSTOPAN2 Normal [facility] Operative Reporton Operative Report Normal [facility] [facility] Basic Metabolic Profile (BMP )on 04-13-2024 BUN/CRE 25.7 RATIO High 10-20 [facility] Comment on above: Performed By: #### L 500.2500, L100.0500 ####[facility] [address] [place], [address] CA,Total 9.0 mg/dL Normal 8.5-10.1 [facility] Comment on above: Performed By: #### L 500.2500, L100.0500 ####[facility] [address] [place], [address] Chloride [Moles/Vol] 107 mmol/L Normal 98-107 [facility] Comment on above: Performed By: #### L 500.2500, L100.0500 ####[facility] [address] [place], [address] CO2 [Moles/Vol] 27.0 mmol/L Normal 21.0-32.0 [facility] Comment on above: Performed By: #### L 500.2500, L100.0500 ####[facility] [address] [place], [address] Creatinine [Mass/Vol] 0.70 mg/dL Normal 0.55-1.02 [facility] Comment on above: Result Comment: The validity of the calculated GFR GFRAA in patients over70 years has not been determined. Clinical correlation isessential. Performed By: #### L 500.2500, L100.0500 ####[facility] [address] [place], [address] ECRCL 50.81 ml/min Normal [facility] Comment on above: Performed By: #### L 500.2500, L100.0500 ####[facility] [address] [place], [address] EST GFR - AA 104 mL/min Normal >60 [facility] Comment on above: Result Comment: Afri can Uzbek GFR Calc Performed By: #### L 500.2500, L100.0500 ####[facility] [address] [place], [address] GAP 5 Normal 5-15 [facility] Comment on above: Performed By: #### L 500.2500, L100.0500 ####[facility] [address] [place], [address] GFR/1.73 sq M.predicted among non-blacks MDRD (S/P/Bld) [Vol rate/Area] 86 mL/min/{1.73_m2} Normal >60 [facility] Comment on above: Result Comment: Non- GFR Calc Performed By: #### L 500.2500, L100.0500 ####[facility] [address] [place], [address] Glucose [Mass/Vol] 94 mg/dL Normal 74-106 [facility] Comment on above: Performed By: #### L 500.2500, L100.0500 ####[facility] [address] [place], [address] Potassium [Moles/Vol] 4.1 mmol/L Normal 3.5-5.1 [facility] Comment on above: Performed By: #### L 500.2500, L100.0500 ####[facility] [address] [place], [address] Sodium [Moles/Vol] 139 mmol/L Normal 136-145 [facility] Comment on above: Performed By: #### L 500.2500, L100.0500 ####[facility] [address] [place], [address] Urea nitrogen [Mass/Vol] 18 mg/dL Normal 7-18 [facility] Comment on above: Performed By: #### L 500.2500, L100.0500 ####[facility] [address] [place], [address] CBC-Complete Blood Cnt No Di ffon 04-13-2024 Erythrocyte distribution width (RBC) [Ratio] 13.1 % Normal 11.6-14.6 [facility] Comment on above: Performed By: #### L 500.2500, L100.0500 ####[facility] [address] [place], [address] Hematocrit (Bld) [Volume fraction] 37.7 % Normal 37-47 [facility] Comment on above: Performed By: #### L 500.2500, L100.0500 ####[facility] [address] [place], [address] Hemoglobin (Bld) [Mass/Vol] 12.2 g/dL Normal 12.0-15. 0 [facility] Comment on above: Performed By: #### L 500.2500, L100.0500 ####[facility] [address] [place], [address] MCH (RBC) [Entitic mass] 32.0 pg Normal 27.0-32.0 [facility] Comment on above: Performed By: #### L 500.2500, L100.0500 ####[facility] [address] [place], [address] MCHC (RBC) [Mass/Vol] 32.4 g/dL Normal 32-36 [facility] Comment on above: Performed By: #### L 500.2500, L100.0500 ####[facility] [address] [place], [address] MCV (RBC) [Entitic vol] 99.0 fL Normal 81-99 [facility] Comment on above: Performed By: #### L 500.2500, L100.0500 ####[facility] [address] [place], [address] Platelet mean volume (Bld) [Entitic vol] 9.0 fL Normal 6.2-12.0 [facility] Comment on above: Performed By: #### L 500.2500, L100.0500 ####[facility] [address] [place], [address] Platelets (Bld) [#/Vol] 267 10*3/uL Normal 150-450 [facility] Comment on above: Performed By: #### L 500.2500, L100.0500 ####[facility] [address] [place], [address] RBC (Bld) [#/Vol] 3.81 10*6/uL Low 4.2-5.4 [facility] Comment on above: Performed By: #### L 500.2500, L100.0500 ####[facility] [address] [place], [address] RDW SD 47.2 fl High 35.1-43.9 [facility] Comment on above: Performed By: #### L 500.2500, L100.0500 ####[facility] [address] [place], [address] WBC (Bld) [#/Vol] 6.6 10*3/uL Normal 4.4-11.0 [facility] Comment on above: Performed By: #### L 500.2500, L100.0500 ####[facility] [address] [place], [address] Spine Lumbar (Routine)on Spine Lumbar (Routine) Normal [facility] Absolute lymphocyte countOrd ered By: Lesli Watkins on 04-12-2024 Lymphocytes Auto (Unsp spec) [#/Vol] 1.50 10*3/uL 0.83-4.51 [facility] Absolute neutrophil countOrd ered By: Lesli Watkins on 04-12-2024 Neutrophils (Bld) [#/Vol] 4.5 10*3/uL 2.0-7.7 [facility] Absolute neutrophil count 4.5 X10^3/uL 2.0-7.7 [facility] Automated lymphocyte count a s percentage of total leukocytesOrdered By: Lesli Watkins on 04-12-2024 Lymphocytes/100 WBC Auto (Unsp spec) 21.6 % 19-41 [facility] Basic Metabolic Profile (BMP )on 04-12-2024 BUN/CRE 18.6 RATIO Normal 10-20 [facility] Comment on above: Performed By: #### L 300.3900, L501.9520, L500.2500, L100.0100, L501.5200 ####[facility] [address] [place], [address] CA,Total 9.0 mg/dL Normal 8.5-10.1 [facility] Comment on above: Performed By: #### L 300.3900, L501.9520, L500.2500, L100.0100, L501.5200 ####[facility] [address] [place], [address] Chloride [Moles/Vol] 107 mmol/L Normal 98-107 [facility] Comment on above: Performed By: #### L 300.3900, L501.9520, L500.2500, L100.0100, L501.5200 ####[facility] [address] [place], [address] CO2 [Moles/Vol] 26.0 mmol/L Normal 21.0-32.0 [facility] Comment on above: Performed By: #### L 300.3900, L501.9520, L500.2500, L100.0100, L501.5200 ####[facility] [address] [place], [address] Creatinine [Mass/Vol] 0.81 mg/dL Normal 0.55-1.02 [facility] Comment on above: Result Comment: The validity of the calculated GFR GFRAA in patients over70 years has not been determined. Clinical correlation isessential. Performed By: #### L 300.3900, L501.9520, L500.2500, L100.0100, L501.5200 ####[facility] [address] [place], [address] ECRCL 50.18 ml/min Normal [facility] Comment on above: Performed By: #### L 300.3900, L501.9520, L500.2500, L100.0100, L501.5200 ####[facility] [address] [place], [address] EST GFR - AA 88 mL/min Normal >60 [facility] Comment on above: Result Comment: Afri can Uzbek GFR Calc Performed By: #### L 300.3900, L501.9520, L500.2500, L100.0100, L501.5200 ####[facility] [address] [place], [address] GAP 6 Normal 5-15 [facility] Comment on above: Performed By: #### L 300.3900, L501.9520, L500.2500, L100.0100, L501.5200 ####[facility] [address] [place], [address] GFR/1.73 sq M.predicted among non-blacks MDRD (S/P/Bld) [Vol rate/Area] 73 mL/min/{1.73_m2} Normal >60 [facility] Comment on above: Result Comment: Non- GFR Calc Performed By: #### L 300.3900, L501.9520, L500.2500, L100.0100, L501.5200 ####[facility] [address] [place], [address] Glucose [Mass/Vol] 95 mg/dL Normal 74-106 [facility] Comment on above: Performed By: #### L 300.3900, L501.9520, L500.2500, L100.0100, L501.5200 ####[facility] [address] [place], [address] Potassium [Moles/Vol] 4.4 mmol/L Normal 3.5-5.1 [facility] Comment on above: Performed By: #### L 300.3900, L501.9520, L500.2500, L100.0100, L501.5200 ####[facility] [address] [place], [address] Sodium [Moles/Vol] 138 mmol/L Normal 136-145 [facility] Comment on above: Performed By: #### L 300.3900, L501.9520, L500.2500, L100.0100, L501.5200 ####[facility] [address] [place], [address] Urea nitrogen [Mass/Vol] 15 mg/dL Normal 7-18 [facility] Comment on above: Performed By: #### L 300.3900, L501.9520, L500.2500, L100.0100, L501.5200 ####[facility] [address] [place], [address] Basophil percentageOrdered B y: Lesli Watkins on 04-12-2024 Basophils/100 WBC (Bld) 0.6 % 0-1 [facility] Basophil percentage 0.6 % 0-1 [facility] CBC W/Diff, Automatedon 03-31 Absolute Lymph 1.50 X10 3/uL Normal 0.83-4.51 [facility] Comment on above: Performed By: #### L 300.3900, L501.9520, L500.2500, L100.0100, L501.5200 ####[facility] [address] [place], [address] Absolute Neut 4.5 X10 3/uL Normal 2.0-7.7 [facility] Comment on above: Performed By: #### L 300.3900, L501.9520, L500.2500, L100.0100, L501.5200 ####[facility] [address] [place], [address] Basophils/100 WBC (Bld) 0.6 % Normal 0-1 [facility] Comment on above: Performed By: #### L 300.3900, L501.9520, L500.2500, L100.0100, L501.5200 ####[facility] [address] [place], [address] Eosinophils/100 WBC (Bld) 1.3 % Normal 0-5 [facility] Comment on above: Performed By: #### L 300.3900, L501.9520, L500.2500, L100.0100, L501.5200 ####[facility] [address] [place], [address] Erythrocyte distribution width (RBC) [Ratio] 13.1 % Normal 11.6-14.6 [facility] Comment on above: Performed By: #### L 300.3900, L501.9520, L500.2500, L100.0100, L501.5200 ####[facility] [address] [place], [address] Hematocrit (Bld) [Volume fraction] 39.0 % Normal 37-47 [facility] Comment on above: Performed By: #### L 300.3900, L501.9520, L500.2500, L100.0100, L501.5200 ####[facility] [address] [place], [address] Hemoglobin (Bld) [Mass/Vol] 12.5 g/dL Normal 12.0-15. 0 [facility] Comment on above: Performed By: #### L 300.3900, L501.9520, L500.2500, L100.0100, L501.5200 ####[facility] [address] [place], [address] IG% 0.400 Normal 0.0-0.9 [facility] Comment on above: Result Comment: IG% - Immature Granulocytes (promyelocytes, myelocytes andmetamyelocytes) > 1% indicates that a LEFT SHIFT is Present. Performed By: #### L 300.3900, L501.9520, L500.2500, L100.0100, L501.5200 ####[facility] [address] [place], [address] Lymphocytes/100 WBC (Bld) 21.6 % Normal 19-41 [facility] Comment on above: Performed By: #### L 300.3900, L501.9520, L500.2500, L100.0100, L501.5200 ####[facility] [address] [place], [address] MCH (RBC) [Entitic mass] 31.7 pg Normal 27.0-32.0 [facility] Comment on above: Performed By: #### L 300.3900, L501.9520, L500.2500, L100.0100, L501.5200 ####[facility] [address] [place], [address] MCHC (RBC) [Mass/Vol] 32.1 g/dL Normal 32-36 [facility] Comment on above: Performed By: #### L 300.3900, L501.9520, L500.2500, L100.0100, L501.5200 ####[facility] [address] [place], [address] MCV (RBC) [Entitic vol] 99.0 fL Normal 81-99 [facility] Comment on above: Performed By: #### L 300.3900, L501.9520, L500.2500, L100.0100, L501.5200 ####[facility] [address] [place], [address] Monocytes/100 WBC (Bld) 10.9 % High 0-10 W [facility] Comment on above: Performed By: #### L 300.3900, L501.9520, L500.2500, L100.0100, L501.5200 ####[facility] [address] [place], [address] Neutrophils/100 WBC (Bld) 65.2 % Normal 47-70 [facility] Comment on above: Performed By: #### L 300.3900, L501.9520, L500.2500, L100.0100, L501.5200 ####[facility] [address] [place], [address] Nucleated RBC (Bld) [#/Vol] 0 10*3/uL Normal 0-5 [facility] Comment on above: Performed By: #### L 300.3900, L501.9520, L500.2500, L100.0100, L501.5200 ####[facility] [address] [place], [address] Platelet mean volume (Bld) [Entitic vol] 8.8 fL Normal 6.2-12.0 [facility] Comment on above: Performed By: #### L 300.3900, L501.9520, L500.2500, L100.0100, L501.5200 ####[facility] [address] [place], [address] Platelets (Bld) [#/Vol] 291 10*3/uL Normal 150-450 [facility] Comment on above: Performed By: #### L 300.3900, L501.9520, L500.2500, L100.0100, L501.5200 ####[facility] [address] [place], [address] RBC (Bld) [#/Vol] 3.94 10*6/uL Low 4.2-5.4 [facility] Comment on above: Performed By: #### L 300.3900, L501.9520, L500.2500, L100.0100, L501.5200 ####[facility] [address] [place], [address] RDW SD 47.5 fl High 35.1-43.9 [facility] Comment on above: Performed By: #### L 300.3900, L501.9520, L500.2500, L100.0100, L501.5200 ####[facility] [address] [place], [address] WBC (Bld) [#/Vol] 7.0 10*3/uL Normal 4.4-11.0 [facility] Comment on above: Performed By: #### L 300.3900, L501.9520, L500.2500, L100.0100, L501.5200 ####[facility] [address] [facility] [place], [address] Eosinophil percentageOrdered By: Lesli Watkins on 04-12-2024 Eosinophils/100 WBC (Bld) 1.3 % 0-5 [facility] Eosinophil percentage 1.3 % 0-5 [facility] Immature granulocytes/100 WB C Auto (Bld)Ordered By: Lesli Watkins on 04-12-2024 Immature granulocytes/100 WBC (Bld) 0.400 % 0.0-0.9 [facility] Comment on above: IG% - Immature Granu locytes (promyelocytes, myelocytes and metamyelocytes) > 1% indicates that a LEFT SHIFT is Present. Automated immature granulocyte percentage 0.400 % 0.0-0.9 [facility] International normalized rat io (INR) calculationOrdered By: Lesli Watkins on 04-12-2024 INR Coag (Bld) [Relative time] 1.0 {INR} [facility] International normalized ratio (INR) calculation 1.0 [facility] Lymphocytes Auto (Unsp spec) [#/Vol]Ordered By: Lesli Watkins on 04-12-2024 Lymphocytes (Bld) [#/Vol] 1.50 10*3/uL 0.83-4.5 1 [facility] Absolute lymphocyte count 1.50 X10^3/uL 0.83-4. 51 [facility] Lymphocytes/100 WBC Auto (Un sp spec)Ordered By: Lesli Watkins on 04-12-2024 Lymphocytes/100 WBC (Bld) 21.6 % 19-41 [facility] Automated lymphocyte count as percentage of total leukocytes 21.6 % [facility] Magnesiumon 04-12-2024 Magnesium [Mass/Vol] 2.3 mg/dL Normal 1.6-2.6 [facility] Comment on above: Performed By: #### L 300.3900, L501.9520, L500.2500, L100.0100, L501.5200 ####[facility] [address] [place], [place], [address] Magnesium measurementOrdered By: Lesli Watkins on 04-12-2024 Magnesium [Mass/Vol] 2.3 mg/dL 1.6-2.6 [facility] Magnesium measurement 2.3 mg/dL 1.6-2.6 [facility] Monocyte percentageOrdered B y: Lesli Watkins on 04-12-2024 Monocytes/100 WBC (Bld) 10.9 % High 0-10 [facility] Monocyte percentage 10.9 % High 0-10 [facility] Neutrophil percentageOrdered By: Lesli Watkins on 04-12-2024 Neutrophils/100 WBC (Bld) 65.2 % 47-70 [facility] Neutrophil percentage 65.2 % 47-70 [facility] Nucleated red blood cell per centageOrdered By: Lesli Watkins on 04-12-2024 Nucleated RBC/100 WBC (Bld) [Ratio] 0 % 0-5 [facility] Nucleated red blood cell percentage 0 % 0-5 [facility] Prothrombin Time w/INRon INR Coag (PPP) [Relative time] 1.0 {INR} Normal [facility] Comment on above: Performed By: #### L 300.3900, L501.9520, L500.2500, L100.0100, L501.5200 ####[facility] [address] [place], [place], [id number] PT Coag (PPP) [Time] 13.8 s Normal 11.7-14.9 [facility] Comment on above: Performed By: #### L 300.3900, L501.9520, L500.2500, L100.0100, L501.5200 ####[facility] [address] [place], [address] Prothrombin timeOrdered By: Lesli Watkins on 04-12-2024 PT Coag (PPP) [Time] 13.8 s 11.7-14.9 [facility] Prothrombin time 13.8 SECONDS 11.7-14.9 [facility] Serum or plasma thyroid stim ulating hormone (TSH) measurement (units/volume)Ordered By: Lesli Watkins on 04-12-2024 TSH Qn 0.856 uIU/mL 0.358-3.740 [facility] TSH QnOrdered By: Lesli mccoy on 04-12-2024 Thyroid Stimulating Hormone (TSH) 0.856 uIU/mL 0.358-3.740 [facility] Serum or plasma thyroid stimulating hormone (TSH) measurement (units/volume) 0.856 uIU/mL 0.358-3.740 [facility] Thyroid Stim Hormone (TSH)on 04-12-2024 TSH 0.856 uIU/mL Normal 0.358-3.740 [facility] Comment on above: Performed By: #### L 300.3900, L501.9520, L500.2500, L100.0100, L501.5200 ####[facility] [address] [place], [address] Transvaginal Non-on 04-12-2024 Transvaginal Non- Normal [facility] Basic Metabolic Profile (BMP )on 04-11-2024 BUN/CRE 18.3 RATIO Normal 10-20 [facility] Comment on above: Performed By: #### L 100.0100, L500.2500 ####[facility] [address] [place], [address] CA,Total 9.1 mg/dL Normal 8.5-10.1 [facility] Comment on above: Performed By: #### L 100.0100, L500.2500 ####[facility] [address] [place], [address] Chloride [Moles/Vol] 103 mmol/L Normal 98-107 [facility] Comment on above: Performed By: #### L 100.0100, L500.2500 ####[facility] [address] [place], [address] CO2 [Moles/Vol] 27.0 mmol/L Normal 21.0-32.0 [facility] Comment on above: Performed By: #### L 100.0100, L500.2500 ####[facility] [address] [place], [address] Creatinine [Mass/Vol] 0.76 mg/dL Normal 0.55-1.02 [facility] Comment on above: Result Comment: The validity of the calculated GFR GFRAA in patients over70 years has not been determined. Clinical correlation isessential. Performed By: #### L 100.0100, L500.2500 ####[facility] [address] [place], [address] ECRCL 53.96 ml/min Normal [facility] Comment on above: Performed By: #### L 100.0100, L500.2500 ####[facility] [address] [place], [address] EST GFR - AA 94 mL/min Normal >60 [facility] Comment on above: Result Comment: Afri can Uzbek GFR Calc Performed By: #### L 100.0100, L500.2500 ####[facility] [address] [place], [address] GAP 6 Normal 5-15 [facility] Comment on above: Performed By: #### L 100.0100, L500.2500 ####[facility] [address] [place], [address] GFR/1.73 sq M.predicted among non-blacks MDRD (S/P/Bld) [Vol rate/Area] 78 mL/min/{1.73_m2} Normal >60 [facility] Comment on above: Result Comment: Non- GFR Calc Performed By: #### L 100.0100, L500.2500 ####[facility] [address] [place], [address] Glucose [Mass/Vol] 97 mg/dL Normal 74-106 [facility] Comment on above: Performed By: #### L 100.0100, L500.2500 ####[facility] [address] [place], [address] Potassium [Moles/Vol] 4.2 mmol/L Normal 3.5-5.1 [facility] Comment on above: Performed By: #### L 100.0100, L500.2500 ####[facility] [address] [place], [address] Sodium [Moles/Vol] 136 mmol/L Normal 136-145 [facility] Comment on above: Performed By: #### L 100.0100, L500.2500 ####[facility] [address] [place], [address] Urea nitrogen [Mass/Vol] 14 mg/dL Normal 7-18 [facility] Comment on above: Performed By: #### L 100.0100, L500.2500 ####[facility] [address] [place], [address] CBC W/Diff, Automatedon 03-31 Absolute Lymph 1.21 X10 3/uL Normal 0.83-4.51 [facility] Comment on above: Performed By: #### L 100.0100, L500.2500 ####[facility] [address] [place], [address] Absolute Neut 5.9 X10 3/uL Normal 2.0-7.7 [facility] Comment on above: Performed By: #### L 100.0100, L500.2500 ####[facility] [address] [place], [address] Basophils/100 WBC (Bld) 0.7 % Normal 0-1 W [facility] Comment on above: Performed By: #### L 100.0100, L500.2500 ####[facility] [address] [place], [address] Eosinophils/100 WBC (Bld) 1.0 % Normal 0-5 [facility] Comment on above: Performed By: #### L 100.0100, L500.2500 ####[facility] [address] [place], [address] Erythrocyte distribution width (RBC) [Ratio] 13.0 % Normal 11.6-14.6 [facility] Comment on above: Performed By: #### L 100.0100, L500.2500 ####[facility] [address] [place], [address] Hematocrit (Bld) [Volume fraction] 38.0 % Normal 37-47 [facility] Comment on above: Performed By: #### L 100.0100, L500.2500 ####[facility] [address] [place], [address] Hemoglobin (Bld) [Mass/Vol] 12.7 g/dL Normal 12.0-15. 0 [facility] Comment on above: Performed By: #### L 100.0100, L500.2500 ####[facility] [address] [place], [address] IG% 0.400 Normal 0.0-0.9 [facility] Comment on above: Result Comment: IG% - Immature Granulocytes (promyelocytes, myelocytes andmetamyelocytes) > 1% indicates that a LEFT SHIFT is Present. Performed By: #### L 100.0100, L500.2500 ####[facility] [address] [place], [address] Lymphocytes/100 WBC (Bld) 15.1 % Low 19-41 [facility] Comment on above: Performed By: #### L 100.0100, L500.2500 ####[facility] [address] [place], [address] MCH (RBC) [Entitic mass] 32.4 pg High 27.0-32.0 [facility] Comment on above: Performed By: #### L 100.0100, L500.2500 ####[facility] [address] [place], [address] MCHC (RBC) [Mass/Vol] 33.4 g/dL Normal 32-36 [facility] Comment on above: Performed By: #### L 100.0100, L500.2500 ####[facility] [address] [place], [address] MCV (RBC) [Entitic vol] 96.9 fL Normal 81-99 [facility] Comment on above: Performed By: #### L 100.0100, L500.2500 ####[facility] [address] [place], [address] Monocytes/100 WBC (Bld) 9.0 % Normal 0-10 [facility] Comment on above: Performed By: #### L 100.0100, L500.2500 ####[facility] [address] [place], [address] Neutrophils/100 WBC (Bld) 73.8 % High 47-70 [facility] Comment on above: Performed By: #### L 100.0100, L500.2500 ####[facility] [address] [place], [address] Nucleated RBC (Bld) [#/Vol] 0 10*3/uL Normal 0-5 [facility] Comment on above: Performed By: #### L 100.0100, L500.2500 ####[facility] [address] [place], [address] Platelet mean volume (Bld) [Entitic vol] 9.1 fL Normal 6.2-12.0 [facility] Comment on above: Performed By: #### L 100.0100, L500.2500 ####[facility] [address] [place], [address] Platelets (Bld) [#/Vol] 296 10*3/uL Normal 150-450 [facility] Comment on above: Performed By: #### L 100.0100, L500.2500 ####[facility] [address] [place], [address] RBC (Bld) [#/Vol] 3.92 10*6/uL Low 4.2-5.4 [facility] Comment on above: Performed By: #### L 100.0100, L500.2500 ####[facility] [address] [place], [address] RDW SD 46.2 fl High 35.1-43.9 [facility] Comment on above: Performed By: #### L 100.0100, L500.2500 ####[facility] [address] [place], [address] WBC (Bld) [#/Vol] 8.0 10*3/uL Normal 4.4-11.0 [facility] Comment on above: Performed By: #### L 100.0100, L500.2500 ####[facility] [address] [place], [address] Emergency Department Summary on 04-11-2024 Emergency Department Summary Normal [facility] H AND P Exam - Hospitaliston 04-11-2024 H&P Exam - Hospitalist Normal [facility] Lumbar Spine 2 or 3 Viewson 04-11-2024 Lumbar Spine 2 or 3 Views Normal [facility] Emergency Department Summary on 03-30-2024 Emergency Department Summary Normal [facility] HIP, UNI W/ Pelvis 2-3 Views on 03-30-2024 HIP, UNI W/ Pelvis 2-3 Views Normal [facility] Lumbar Spine 2 or 3 Viewson 03-30-2024 Lumbar Spine 2 or 3 Views Normal [facility] Brain/Head without Contrasto n 02-25-2024 Brain/Head without Contrast Normal [facility] Emergency Department Summary on 02-25-2024 Emergency Department Summary Normal [facility] Spine Cervical without Contr ason 02-25-2024 Spine Cervical without Contras Normal [facility] Gastroenterology Visit Repor ton 02-23-2024 Gastroenterology Visit Report Normal [facility] Re-Evaluation - PT (1)on Re-Evaluation - PT (1) Normal [facility] Dexa Bone Density/Append Ske sergio 01-08-2024 Dexa Bone Density/Append Skel Normal [facility] Inital Evaluation (1) - PTon 12-29-2023 Inital Evaluation (1) - PT Normal [facility] CBC W/Diff, Automatedon 11-29 Absolute Lymph 1.16 X10 3/uL Normal 0.83-4.51 [facility] Comment on above: Performed By: #### L 506.1000, L500.4050, L501.9520, L100.0100, L500.4100 ####[facility] [address] [place], [address] Absolute Neut 3.8 X10 3/uL Normal 2.0-7.7 [facility] Comment on above: Performed By: #### L 506.1000, L500.4050, L501.9520, L100.0100, L500.4100 ####[facility] [address] [place], [address] Basophils/100 WBC (Bld) 0.7 % Normal 0-1 W [facility] Comment on above: Performed By: #### L 506.1000, L500.4050, L501.9520, L100.0100, L500.4100 ####[facility] [address] [place], [address] Eosinophils/100 WBC (Bld) 2.1 % Normal 0-5 [facility] Comment on above: Performed By: #### L 506.1000, L500.4050, L501.9520, L100.0100, L500.4100 ####[facility] [address] [place], [address] Erythrocyte distribution width (RBC) [Ratio] 13.0 % Normal 11.6-14.6 [facility] Comment on above: Performed By: #### L 506.1000, L500.4050, L501.9520, L100.0100, L500.4100 ####[facility] [address] [place], [address] Hematocrit (Bld) [Volume fraction] 40.5 % Normal 37-47 [facility] Comment on above: Performed By: #### L 506.1000, L500.4050, L501.9520, L100.0100, L500.4100 ####[facility] [address] [place], [address] Hemoglobin (Bld) [Mass/Vol] 12.8 g/dL Normal 12.0-15. 0 [facility] Comment on above: Performed By: #### L 506.1000, L500.4050, L501.9520, L100.0100, L500.4100 ####[facility] [address] [place], [address] IG% 0.500 Normal 0.0-0.9 [facility] Comment on above: Result Comment: IG% - Immature Granulocytes (promyelocytes, myelocytes andmetamyelocytes) > 1% indicates that a LEFT SHIFT is Present. Performed By: #### L 506.1000, L500.4050, L501.9520, L100.0100, L500.4100 ####[facility] [address] [place], [address] Lymphocytes/100 WBC (Bld) 20.4 % Normal 19-41 [facility] Comment on above: Performed By: #### L 506.1000, L500.4050, L501.9520, L100.0100, L500.4100 ####[facility] [address] [place], [address] MCH (RBC) [Entitic mass] 31.7 pg Normal 27.0-32.0 [facility] Comment on above: Performed By: #### L 506.1000, L500.4050, L501.9520, L100.0100, L500.4100 ####[facility] [address] [place], [address] MCHC (RBC) [Mass/Vol] 31.6 g/dL Low 32-36 [facility] Comment on above: Performed By: #### L 506.1000, L500.4050, L501.9520, L100.0100, L500.4100 ####[facility] [address] [place], [address] MCV (RBC) [Entitic vol] 100.2 fL High 81-99 W [facility] Comment on above: Performed By: #### L 506.1000, L500.4050, L501.9520, L100.0100, L500.4100 ####[facility] [address] [place], [address] Monocytes/100 WBC (Bld) 9.3 % Normal 0-10 [facility] Comment on above: Performed By: #### L 506.1000, L500.4050, L501.9520, L100.0100, L500.4100 ####[facility] [address] [place], [address] Neutrophils/100 WBC (Bld) 67.0 % Normal 47-70 [facility] Comment on above: Performed By: #### L 506.1000, L500.4050, L501.9520, L100.0100, L500.4100 ####[facility] [address] [place], [address] Nucleated RBC (Bld) [#/Vol] 0 10*3/uL Normal 0-5 [facility] Comment on above: Performed By: #### L 506.1000, L500.4050, L501.9520, L100.0100, L500.4100 ####[facility] [address] [place], [address] Platelet mean volume (Bld) [Entitic vol] 9.3 fL Normal 6.2-12.0 [facility] Comment on above: Performed By: #### L 506.1000, L500.4050, L501.9520, L100.0100, L500.4100 ####[facility] [address] [place], [address] Platelets (Bld) [#/Vol] 213 10*3/uL Normal 150-450 [facility] Comment on above: Performed By: #### L 506.1000, L500.4050, L501.9520, L100.0100, L500.4100 ####[facility] [address] [place], [address] RBC (Bld) [#/Vol] 4.04 10*6/uL Low 4.2-5.4 [facility] Comment on above: Performed By: #### L 506.1000, L500.4050, L501.9520, L100.0100, L500.4100 ####[facility] [address] [place], [address] RDW SD 48.1 fl High 35.1-43.9 [facility] Comment on above: Performed By: #### L 506.1000, L500.4050, L501.9520, L100.0100, L500.4100 ####[facility] [address] [place], [address] WBC (Bld) [#/Vol] 5.7 10*3/uL Normal 4.4-11.0 [facility] Comment on above: Performed By: #### L 506.1000, L500.4050, L501.9520, L100.0100, L500.4100 ####[facility] [address] [place], [address] Comprehensive Metabolic Prof ilon 12-15-2023 Albumin [Mass/Vol] 3.4 g/dL Normal 3.2-5.0 [facility] Comment on above: Performed By: #### L 506.1000, L500.4050, L501.9520, L100.0100, L500.4100 ####[facility] [address] [place], [address] Albumin/Globulin [Mass ratio] 0.8 {ratio} Low 0.9-2.4 [facility] Comment on above: Performed By: #### L 506.1000, L500.4050, L501.9520, L100.0100, L500.4100 ####[facility] [address] [place], [address] ALK P 76 U/L Normal 45-117 [facility] Comment on above: Performed By: #### L 506.1000, L500.4050, L501.9520, L100.0100, L500.4100 ####[facility] [address] [place], [address] ALT [Catalytic activity/Vol] 22 U/L Normal 13-56 [facility] Comment on above: Performed By: #### L 506.1000, L500.4050, L501.9520, L100.0100, L500.4100 ####[facility] [address] [place], [address] AST [Catalytic activity/Vol] 20 U/L Normal 15-37 [facility] Comment on above: Performed By: #### L 506.1000, L500.4050, L501.9520, L100.0100, L500.4100 ####[facility] [address] [place], [address] Bilirubin [Mass/Vol] 0.40 mg/dL Normal 0.20-1.00 [facility] Comment on above: Result Comment: For patients on eltrombopag therapy, use of Dimension [place] TBIL is not recommended. Performed By: #### L 506.1000, L500.4050, L501.9520, L100.0100, L500.4100 ####[facility] [address] [place], [address] BUN/CRE 25.6 RATIO High 10-20 [facility] Comment on above: Performed By: #### L 506.1000, L500.4050, L501.9520, L100.0100, L500.4100 ####[facility] [address] [place], [address] CA,Total 9.4 mg/dL Normal 8.5-10.1 [facility] Comment on above: Performed By: #### L 506.1000, L500.4050, L501.9520, L100.0100, L500.4100 ####[facility] [address] [place], [address] Chloride [Moles/Vol] 103 mmol/L Normal 98-107 [facility] Comment on above: Performed By: #### L 506.1000, L500.4050, L501.9520, L100.0100, L500.4100 ####[facility] [address] [place], [address] CO2 [Moles/Vol] 29.0 mmol/L Normal 21.0-32.0 [facility] Comment on above: Performed By: #### L 506.1000, L500.4050, L501.9520, L100.0100, L500.4100 ####[facility] [address] [place], [address] Creatinine [Mass/Vol] 0.78 mg/dL Normal 0.55-1.02 [facility] Comment on above: Result Comment: The validity of the calculated GFR GFRAA in patients over70 years has not been determined. Clinical correlation isessential. Performed By: #### L 506.1000, L500.4050, L501.9520, L100.0100, L500.4100 ####[facility] [address] [place], [address] EST GFR - AA 92 mL/min Normal >60 [facility] Comment on above: Result Comment: Afri can Uzbek GFR Calc Performed By: #### L 506.1000, L500.4050, L501.9520, L100.0100, L500.4100 ####[facility] [address] [place], [address] GAP 6 Normal 5-15 [facility] Comment on above: Performed By: #### L 506.1000, L500.4050, L501.9520, L100.0100, L500.4100 ####[facility] [address] [place], [address] GFR/1.73 sq M.predicted among non-blacks MDRD (S/P/Bld) [Vol rate/Area] 76 mL/min/{1.73_m2} Normal >60 [facility] Comment on above: Result Comment: Non- GFR Calc Performed By: #### L 506.1000, L500.4050, L501.9520, L100.0100, L500.4100 ####[facility] [address] [place], [address] Globulin (S) [Mass/Vol] 4.2 g/dL Normal 2.2-4.2 [facility] Comment on above: Performed By: #### L 506.1000, L500.4050, L501.9520, L100.0100, L500.4100 ####[facility] [address] [place], [address] Glucose [Mass/Vol] 100 mg/dL Normal 74-106 [facility] Comment on above: Result Comment: Fast ing Glucose result from 100 to 125 mg/dLsuggests IMPAIRED HOMEOSTASIS per A.D.A. criteria. Performed By: #### L 506.1000, L500.4050, L501.9520, L100.0100, L500.4100 ####[facility] [address] [place], [address] Potassium [Moles/Vol] 4.2 mmol/L Normal 3.5-5.1 [facility] Comment on above: Performed By: #### L 506.1000, L500.4050, L501.9520, L100.0100, L500.4100 ####[facility] [address] [place], [address] Sodium [Moles/Vol] 138 mmol/L Normal 136-145 [facility] Comment on above: Performed By: #### L 506.1000, L500.4050, L501.9520, L100.0100, L500.4100 ####[facility] [address] [place], [address] T PROT 7.6 g/dL Normal 6.4-8.2 [facility] Comment on above: Performed By: #### L 506.1000, L500.4050, L501.9520, L100.0100, L500.4100 ####[facility] [address] [place], [address] Urea nitrogen [Mass/Vol] 20 mg/dL High 7-18 [facility] Comment on above: Performed By: #### L 506.1000, L500.4050, L501.9520, L100.0100, L500.4100 ####[facility] [address] [place], [address] Lipid Profileon 12-15-2023 Cholesterol [Mass/Vol] 176 mg/dL Normal 200 [facility] Comment on above: Result Comment: <200 mg/dL Desirable 200-240 mg/dL Borderline >240 mg/dL High Risk Performed By: #### L 506.1000, L500.4050, L501.9520, L100.0100, L500.4100 ####[facility] [address] [place], [address] Cholesterol in HDL [Mass/Vol] 74 mg/dL Normal [facility] Comment on above: Result Comment: The drugs N-Acetylcysteine and Metamizole may falselydepress this assay. Reference Range HDL <40 mg/dL Low HDL Cholesterol HDL >or= 60 mg/dL High HDL Cholesterol Performed By: #### L 506.1000, L500.4050, L501.9520, L100.0100, L500.4100 ####[facility] [address] [place], [address] Cholesterol in LDL [Mass/Vol] 93 mg/dL Normal 0-130 [facility] Comment on above: Performed By: #### L 506.1000, L500.4050, L501.9520, L100.0100, L500.4100 ####[facility] [address] [place], [address] Cholesterol in VLDL [Mass/Vol] 9 mg/dL Normal 5-40 [facility] Comment on above: Performed By: #### L 506.1000, L500.4050, L501.9520, L100.0100, L500.4100 ####[facility] [address] [place], [address] Triglyceride [Mass/Vol] 46 mg/dL Normal [facility] Comment on above: Result Comment: The drugs N-Acetylcysteine and Metamizole may falselydepress this assay.Serum Triglycerides Reference Interval Normal <150 mg/dL Borderline high 150 - 199 mg/dL High 200 - 499 mg/dL Very High > or = 500 mg/dL Performed By: #### L 506.1000, L500.4050, L501.9520, L100.0100, L500.4100 ####[facility] [id number] [place], [address] Thyroid Stim Hormone (TSH)on 12-15-2023 TSH 0.871 uIU/mL Normal 0.358-3.740 [facility] Comment on above: Performed By: #### L 506.1000, L500.4050, L501.9520, L100.0100, L500.4100 ####[facility] [address] [place], [address] Vitamin D,25 Hydroxyon 12-14 Vitamin D 25-OH 68.6 ng/mL Normal [facility] Comment on above: Result Comment: Yesenia min D 25(OH) Status Range Deficiency <20 ng/mL (50nmol/L) Insufficiency 20 - 30 ng/mL (50 - 75 nmol/L) Sufficiency 30 - 100 ng/mL (75 - 250 nmol/L) Toxicity >100 ng/mL (>250 nmol/L) Performed By: #### L 506.1000, L500.4050, L501.9520, L100.0100, L500.4100 ####[facility] [address] [place], [address] Cerv Spine 4 or 5 Viewson Cerv Spine 4 or 5 Views Normal [facility] L/S Spine Min 4 Viewson 10-29 L/S Spine Min 4 Views Normal [facility] Orthopedic Visit Reporton Orthopedic Visit Report Normal [facility] Cardiology Visit Reporton Cardiology Visit Report Normal [facility] NCS and/or EMG Patienton NCS and/or EMG Patient Normal [facility] NCS and/or EMG Patienton NCS and/or EMG Patient Normal [facility] Brain without Contraston Brain without Contrast Normal [facility] Spine Cervical (Routine)on 0 09-30-2023 Spine Cervical (Routine) Normal [facility] Spine Lumbar (Routine)on Spine Lumbar (Routine) Normal [facility] Spine Thoracic (Routine)on 0 09-30-2023 Spine Thoracic (Routine) Normal [facility] PT D/C Summary (1)on 024 PT D/C Summary (1) Normal [facility] Absolute lymphocyte countOrd ered By: Michael Snowden on 05-28-2023 Lymphocytes Auto (Unsp spec) [#/Vol] 1.31 10*3/uL 0.83-4.51 [facility] Automated lymphocyte count a s percentage of total leukocytesOrdered By: Michael Snowden on 05-28-2023 Lymphocytes/100 WBC Auto (Unsp spec) 20.5 % 19-41 [facility] Basophil percentageOrdered B y: Michael Snowden on 05-28-2023 Basophils/100 WBC (Bld) 0.5 % 0-1 [facility] Bilirubin [Mass/Vol] 0.80 mg/dL 0.20-1.00 [facility] Comment on above: For patients on eltr ombopag therapy, use of Dimension [place] TBIL is not recommended. Chloride [Moles/Vol] 106 mmol/L 98-107 [facility] Cholesterol [Mass/Vol] 168 mg/dL <200 [facility] Comment on above: <200 mg/dL Desirable 200-240 mg/dL Borderline >240 mg/dL High Risk Eosinophils/100 WBC (Bld) 2.4 % 0-5 [facility] Glucose [Mass/Vol] 87 mg/dL 74-106 [facility] Hemoglobin (Bld) [Mass/Vol] 12.7 g/dL 12.0-15. 0 [facility] Monocytes/100 WBC (Bld) 8.9 % 0-10 [facility] Neutrophils (Bld) [#/Vol] 4.3 10*3/uL 2.0-7.7 [facility] Neutrophils/100 WBC (Bld) 67.4 % 47-70 [facility] Potassium [Moles/Vol] 4.0 mmol/L 3.5-5.1 [facility] Protein [Mass/Vol] 7.6 g/dL 6.4-8.2 [facility] Sodium [Moles/Vol] 139 mmol/L 136-145 [facility] Triglyceride [Mass/Vol] 103 mg/dL <199 [facility] Comment on above: The drugs N-Acetylcy steine and Metamizole may falsely depress this assay.Serum Triglycerides Reference Interval Normal <150 mg/dL Borderline high 150 - 199 mg/dL High 200 - 499 mg/dL Very High > or = 500 mg/dL WBC (Bld) [#/Vol] 6.4 10*3/uL 4.4-11.0 [facility] Determination of erythrocyte mean corpuscular volume (MCV)Ordered By: Michael Snowden on 05-28-2023 MCV (RBC) [Entitic vol] 100.8 fL 81-99 [facility] Erythrocyte distribution wid th ratioOrdered By: [facility] 05-28-2023 Erythrocyte distribution width (RBC) [Ratio] 13.2 % 11.6-14.6 [facility] Erythrocyte distribution wid th standard deviationOrdered By: [facility] on 05-28-2023 Erythrocyte distribution width (RBC) [Entitic vol] 48.9 fL 35.1-43.9 [facility] Hematocrit Auto (Bld) [Volum e fraction]Or[facility]: [facility] 05-28-[facility]23 Hematocrit (Bld) [Volume fraction] 39.4 % 37-47 [facility] Immature granulocytes/100 WB C Auto (Bld)Ordered By: [facility] on 05-28-2023 Immature granulocytes/100 WBC (Bld) 0.300 % 0.0-0.9 [facility] Comment on above: IG% - Immature Granu locytes (promyelocytes, myelocytes and metamyelocytes) > 1% indicates that a LEFT SHIFT is Present. Laboratory - Chemistry and C hemistry - challengeOrdered By: Michael Snowden on 05-28-2023 Albumin/Globulin [Mass ratio] 0.8 {ratio} 0.9-2.4 [facility] ALP [Catalytic activity/Vol] 78 U/L 45-117 [facility] ALT [Catalytic activity/Vol] 29 U/L 13-56 [facility] Cholesterol in HDL [Mass/Vol] 70 mg/dL >40 [facility] Comment on above: The drugs N-Acetylcy steine and Metamizole may falsely depress this assay. Reference Range HDL <40 mg/dL Low HDL Cholesterol HDL >or= 60 mg/dL High HDL Cholesterol Cholesterol in LDL [Mass/Vol] 77 mg/dL 0-130 [facility] CO2 [Moles/Vol] 28.0 mmol/L 21.0-32.0 [facility] Globulin (S) [Mass/Vol] 4.2 g/dL 2.2-4.2 [facility] Urea nitrogen/Creatinine [Mass ratio] 22.7 mg/mg 10-20 [facility] Laboratory - Hematology and Cell countsOrdered By: Michael Snowden on 05-28-2023 MCH (RBC) [Entitic mass] 32.5 pg 27.0-32.0 [facility] MCHC (RBC) [Mass/Vol] 32.2 g/dL 32-36 [facility] Nucleated RBC/100 WBC (Bld) [Ratio] 0 % 0-5 [facility] Platelet mean volume (Bld) [Entitic vol] 9.8 fL 6.2-12.0 [facility] Platelets (Bld) [#/Vol] 219 10*3/uL 150-450 [facility] No Panel InformationOrdered By: Michael Snowden on 05-28-2023 Estimated GFR (MDRD) Amer 97 mL/min >60 [facility] Comment on above: GFR Calc Estimated GFR (MDRD) Non-Af Amer 80 mL/min >60 [facility] Comment on above: Non- GFR Calc Vitamin D 25-Hydroxy 81.9 ng/mL [facility] Comment on above: Vitamin D 25(OH) Sta tus Range Deficiency <20 ng/mL (50nmol/L) Insufficiency 20 - 30 ng/mL (50 - 75 nmol/L) Sufficiency 30 - 100 ng/mL (75 - 250 nmol/L) Toxicity >100 ng/mL (>250 nmol/L) VLDL Cholesterol 21 mg/dL 5-40 [facility] RBC Auto (Bld) [#/Vol]Ordere d By: Michael Snowden on 05-28-2023 RBC (Bld) [#/Vol] 3.91 10*6/uL 4.2-5.4 [facility] Serum or plasma calcium gianluca urement (mass/volume)Ordered By: iMchael Snowden on 05-28-2023 Calcium [Mass/Vol] 9.0 mg/dL 8.5-10.1 [facility] Serum or plasma creatinine m easurement (mass/volume)Ordered By: Michael Snowden on 05-28-2023 Creatinine [Mass/Vol] 0.75 mg/dL 0.55-1.02 [facility] Comment on above: The validity of the calculated GFR & GFRAA in patients over 70 years has not been determined. Clinical correlation is essential. Serum or plasma thyroid stim ulating hormone (TSH) measurement (units/volume)Ordered By: Michael Snowden on 05-28-2023 TSH Qn 1.09 uIU/mL 0.358-3.74 [facility] Serum or plasma urea nitroge n measurement (mass/volume)Ordered By: Michael Snowden on 05-28-2023 Urea nitrogen [Mass/Vol] 17 mg/dL 7-18 [facility] Thin prep Papanicolaou smear with manual screeningOrdered By: Michael Snowden on 05-28-2023 Thin prep Papanicolaou smear with manual screening 3.4 g/dL 3.2-5.0 [facility] Thin prep Papanicolaou smear with manual screening 23 U/L 15-37 [facility] Thin prep Papanicolaou smear with manual screening 5 5-15 [facility] Absolute lymphocyte countOrd ered By: Gaetano Cleary on 05-09-2023 Lymphocytes Auto (Unsp spec) [#/Vol] 1.22 10*3/uL 0.83-4.51 [facility] Automated lymphocyte count a s percentage of total leukocytesOrdered By: Gaetano Cleary on 05-09-2023 Lymphocytes/100 WBC Auto (Unsp spec) 20.0 % 19-41 [facility] Basophil percentageOrdered B y: Gaetano Cleary on 05-09-2023 Basophils/100 WBC (Bld) 0.7 % 0-1 [facility] Eosinophils/100 WBC (Bld) 2.3 % 0-5 [facility] Hemoglobin (Bld) [Mass/Vol] 12.3 g/dL 12.0-15. 0 [facility] Monocytes/100 WBC (Bld) 8.4 % 0-10 [facility] Neutrophils (Bld) [#/Vol] 4.2 10*3/uL 2.0-7.7 [facility] Neutrophils/100 WBC (Bld) 68.1 % 47-70 [facility] WBC (Bld) [#/Vol] 6.1 10*3/uL 4.4-11.0 [facility] Determination of erythrocyte mean corpuscular volume (MCV)Ordered By: Gaetano Cleary on 05-09-2023 MCV (RBC) [Entitic vol] 100.8 fL 81-99 [facility] Erythrocyte distribution wid th ratioOrdered By: Gaetano Cleary on 05-09-2023 Erythrocyte distribution width (RBC) [Ratio] 13.2 % 11.6-14.6 [facility] Erythrocyte distribution wid th standard deviationOrdered By: Gaetano Cleary on 05-09-2023 Erythrocyte distribution width (RBC) [Entitic vol] 49.1 fL 35.1-43.9 [facility] Erythrocyte sedimentation ra teOrdered By: Gaetano Cleary on 05-09-2023 ESR (Bld) [Velocity] 18 mm/h 0-30 [facility] Hematocrit Auto (Bld) [Volum e fraction]Ordered By: Gaetano Cleary on 05-09-2023 Hematocrit (Bld) [Volume fraction] 39.9 % 37-47 [facility] Immature granulocytes/100 WB C Auto (Bld)Ordered By: Gaetano Cleary on 05-09-2023 Immature granulocytes/100 WBC (Bld) 0.500 % 0.0-0.9 [facility] Comment on above: IG% - Immature Granu locytes (promyelocytes, myelocytes and metamyelocytes) > 1% indicates that a LEFT SHIFT is Present. Laboratory - Hematology and Cell countsOrdered By: Gaetano Cleary on 05-09-2023 MCH (RBC) [Entitic mass] 31.1 pg 27.0-32.0 [facility] MCHC (RBC) [Mass/Vol] 30.8 g/dL 32-36 [facility] Nucleated RBC/100 WBC (Bld) [Ratio] 0 % 0-5 [facility] Platelet mean volume (Bld) [Entitic vol] 9.8 fL 6.2-12.0 [facility] Platelets (Bld) [#/Vol] 225 10*3/uL 150-450 [facility] No Panel InformationOrdered By: Gaetano Cleary on 05-09-2023 C-Reactive Protein Extended Range < 2.90 mg/L 0.0-3.0 [facility] Comment on above: C-Reactive Protein ( CRP) provides useful information for thediagnosis, therapy and monitoring of inflammatory processesand associated diseases. For the evaluation of Relative Riskfor Cardiovascular Disease, a High Sensitivity CRP (HSCRP)should be ordered. RBC Auto (Bld) [#/Vol]Ordere d By: Gaetano Cleary on 05-09-2023 RBC (Bld) [#/Vol] 3.96 10*6/uL 4.2-5.4 [facility] Absolute lymphocyte countOrd ered By: Michael Snowden on 11-27-2022 Lymphocytes Auto (Unsp spec) [#/Vol] 1.24 10*3/uL 0.83-4.51 [facility] Basophil percentageOrdered B y: Michael Snowden on 11-27-2022 Basophils/100 WBC (Bld) 0.8 % 0-1 [facility] Bilirubin [Mass/Vol] 0.30 mg/dL 0.20-1.00 [facility] Comment on above: For patients on eltr ombopag therapy, use of Dim[place] TBIL is not recommended. Chloride [Moles/Vol] 110 mmol/L 98-107 [facility] Cholesterol [Mass/Vol] 169 mg/dL <200 [facility] Comment on above: <200 mg/dL Desirable 200-240 mg/dL Borderline >240 mg/dL High Risk Eosinophils/100 WBC (Bld) 2.5 % 0-5 [facility] Glucose [Mass/Vol] 93 mg/dL 74-106 [facility] Neutrophils (Bld) [#/Vol] 3.3 10*3/uL 2.0-7.7 [facility] Neutrophils/100 WBC (Bld) 63.1 % 47-70 [facility] Potassium [Moles/Vol] 4.1 mmol/L 3.5-5.1 [facility] Protein [Mass/Vol] 7.4 g/dL 6.4-8.2 [facility] Sodium [Moles/Vol] 143 mmol/L 136-145 [facility] Triglyceride [Mass/Vol] 57 mg/dL <199 [facility] Comment on above: The drugs N-Acetylcy steine and Metamizole may falsely depress this assay.Serum Triglycerides Reference Interval Normal <150 mg/dL Borderline high 150 - 199 mg/dL High 200 - 499 mg/dL Very High > or = 500 mg/dL WBC (Bld) [#/Vol] 5.2 10*3/uL 4.4-11.0 [facility] Blood erythrocytes count (nu mber/volume)Ordered By: Michael Snowden on 11-27-2022 RBC (Bld) [#/Vol] 3.78 10*6/uL 4.2-5.4 [facility] Blood hemoglobin measurement (mass/volume)Ordered By: Michael Snowden on 11-27-2022 Hemoglobin (Bld) [Mass/Vol] 11.9 g/dL 12.0-15. 0 [facility] Blood lymphocytes/100 leukoc ytesOrdered By: Michael Snowden on 11-27-2022 Lymphocytes/100 WBC (Bld) 23.8 % 19-41 [facility] Blood monocytes/100 leukocyt esOrdered By: Michael Snowden on 11-27-2022 Monocytes/100 WBC (Bld) 9.4 % 0-10 [facility] Blood platelet mean volumeOr dered By: Michael Snowden on 11-27-2022 Platelet mean volume (Bld) [Entitic vol] 10.0 fL 6.2-12.0 [facility] Determination of erythrocyte mean corpuscular volume (MCV)Ordered By: Michael Snowden on 11-27-2022 MCV (RBC) [Entitic vol] 100.0 fL 81-99 [facility] Hematocrit Auto (Bld) [Volum e fraction]Ordered By: Michael Sp on 11-27-2022 Hematocrit (Bld) [Volume fraction] 37.8 % 37-47 [facility] Laboratory - Chemistry and C hemistry - challengeOrdered By: Michael Snowden on 11-27-2022 ALP [Catalytic activity/Vol] 68 U/L 45-117 [facility] ALT [Catalytic activity/Vol] 22 U/L 13-56 [facility] CO2 [Moles/Vol] 28.0 mmol/L 21.0-32.0 [facility] Globulin (S) [Mass/Vol] 4.1 g/dL 2.2-4.2 [facility] Urea nitrogen/Creatinine [Mass ratio] 21.3 mg/mg 10-20 [facility] Laboratory - Hematology and Cell countsOrdered By: Michael Snowden on 11-27-2022 Erythrocyte distribution width (RBC) [Entitic vol] 47.8 fL 35.1-43.9 [facility] Erythrocyte distribution width (RBC) [Ratio] 13.1 % 11.6-14.6 [facility] Immature granulocytes/100 WBC (Bld) 0.400 % 0.0-0.9 [facility] Comment on above: IG% - Immature Granu locytes (promyelocytes, myelocytes and metamyelocytes) > 1% indicates that a LEFT SHIFT is Present. MCH (RBC) [Entitic mass] 31.5 pg 27.0-32.0 [facility] Nucleated RBC/100 WBC (Bld) [Ratio] 0 % 0-5 [facility] MCHC Auto (RBC) [Mass/Vol]Or dered By: Michael Sp on 11-27-2022 MCHC (RBC) [Mass/Vol] 31.5 g/dL 32-36 [facility] No Panel InformationOrdered By: Michael Snowden on 11-27-2022 Estimated GFR (MDRD) Amer 112 mL/min >60 [facility] Comment on above: GFR Calc Estimated GFR (MDRD) Non-Af Amer 93 mL/min >60 [facility] Comment on above: Non- GFR Calc Thyroid Stimulating Hormone (TSH) 0.84 uIU/mL 0.358-3.74 [facility] Vitamin D 25-Hydroxy 87.7 ng/mL [facility] Comment on above: Vitamin D 25(OH) Sta tus Range Deficiency <20 ng/mL (50nmol/L) Insufficiency 20 - 30 ng/mL (50 - 75 nmol/L) Sufficiency 30 - 100 ng/mL (75 - 250 nmol/L) Toxicity >100 ng/mL (>250 nmol/L) Platelets bldOrdered By: Michael Snowden on 11-27-2022 Platelets (Bld) [#/Vol] 214 10*3/uL 150-450 [facility] Serum or plasma albumin gianluca urement (mass/volume)Ordered By: Michael Snowden on 11-27-2022 Albumin [Mass/Vol] 3.3 g/dL 3.2-5.0 [facility] Serum or plasma albumin/glob ulin mass ratioOrdered By: Michael Snowden 11-27-2022 Albumin/Globulin [Mass ratio] 0.8 {ratio} 0.9-2.4 [facility] Serum or plasma calcium gianluca urement (mass/volume)Ordered By: Michael Snowden 11-27-2022 Calcium [Mass/Vol] 9.2 mg/dL 8.5-10.1 [facility] Serum or plasma cholesterol in HDL measurement (mass/volume)Ordered By: Michael Snowden on 11-27-2022 Cholesterol in HDL [Mass/Vol] 66 mg/dL >40 [facility] Comment on above: The drugs N-Acetylcy steine and Metamizole may falsely depress this assay. Reference Range HDL <40 mg/dL Low HDL Cholesterol HDL >or= 60 mg/dL High HDL Cholesterol Serum or plasma cholesterol in VLDL measurement (mass/volume)Ordered By: Michael Snowden on 11-27-2022 Cholesterol in VLDL [Mass/Vol] 11 mg/dL 5-40 [facility] Serum or plasma creatinine m easurement (mass/volume)Ordered By: Michael Snowden 11-27-2022 Creatinine [Mass/Vol] 0.66 mg/dL 0.55-1.02 [facility] Comment on above: The validity of the calculated GFR & GFRAA in patients over 70 years has not been determined. Clinical correlation is essential. Serum or plasma low density lipoprotein (LDL) cholesterol measurement (mass/volume)Ordered By: Michael Snowden on 11-27-2022 Cholesterol in LDL [Mass/Vol] 92 mg/dL 0-130 [facility] Serum or plasma urea nitroge n measurement (mass/volume)Ordered By: Michael Snowden on 11-27-2022 Urea nitrogen [Mass/Vol] 14 mg/dL 7-18 [facility] Thin prep Papanicolaou smear with manual screeningOrdered By: Michael Snowden on 11-27-2022 Thin prep Papanicolaou smear with manual screening 21 U/L 15-37 [facility] Thin prep Papanicolaou smear with manual screening 5 5-15 [facility] No Panel InformationOrdered By: Sae Brandt on 08-05-2022 Stool Calprotectin 32 ug/g 0-120 [facility] Comment on above: Concentration Interp retation Follow-Up<16 - 50 ug/g Normal None>50 -120 ug/g Borderline Re-evaluate in 4-6 weeks >120 ug/g Abnormal Repeat as clinically indicatedPerformed at: [place] [facility] [address] [id number] Director: Alaina Alex MD, Phone: [phone] Stool Pancreatic Elastase 202 >200 [facility] Comment on above: Result Units: ug [address]g Severe Pancreatic Insufficiency: <100 Moderate Pancreatic Insufficiency: 100 - 200 Normal: >200Performed at: [place] - [facility] [address] [id number] Director: Alaina Alex MD, Phone: [phone] Stool lactoferrin detection by immunoassayOrdered By: Sae Brandt on 08-05-2022 Lactoferrin IA Ql (Stl) [facility] Lactoferrin IA Ql (Stl) [facility] Absolute lymphocyte countOrd ered By: Sae Brandt on 06-07-2022 Lymphocytes Auto (Unsp spec) [#/Vol] 1.34 10*3/uL 0.83-4.51 [facility] Atypical perinuclear antineu trophil cytoplasmic antibodies measurementOrdered By: Sae Brandt on 06-07-2022 Neutrophil cytoplasmic Ab.perinuclear.atypical IF (S) [Titer] <1:20 titer Neg:<1:20 [facility] Comment on above: The atypical pANCA p attern has been observed in asignificant percentage of patients with ulcerative colitis,primary sclerosing cholangitis and autoimmune hepatitis.Performed at: - [facility] [address] [id number] Director: Olivier Jenkins PhD, Phone: [phone] at: - [facility] [id number] Director: Alaina Alex MD, Phone: [phone] Basophil percentageOrdered B y: Sae Brandt on 06-07-2022 Basophil percentage < 0.2 AI 0.0-0.9 [facility] Basophils/100 WBC (Bld) 0.9 % 0-1 [facility] Bilirubin [Mass/Vol] 0.40 mg/dL 0.20-1.00 [facility] Comment on above: For patients on eltr ombopag therapy, use of Dimension [place] TBIL is not recommended. Chloride [Moles/Vol] 103 mmol/L 98-107 [facility] Eosinophils/100 WBC (Bld) 2.3 % 0-5 [facility] Glucose [Mass/Vol] 85 mg/dL 74-106 [facility] LDH [Catalytic activity/Vol] 226 U/L 84-246 [facility] Neutrophils (Bld) [#/Vol] 4.5 10*3/uL 2.0-7.7 [facility] Neutrophils/100 WBC (Bld) 67.7 % 47-70 [facility] Potassium [Moles/Vol] 3.6 mmol/L 3.5-5.1 [facility] Protein [Mass/Vol] 7.6 g/dL 6.4-8.2 [facility] Sodium [Moles/Vol] 140 mmol/L 136-145 [facility] WBC (Bld) [#/Vol] 6.6 10*3/uL 4.4-11.0 [facility] Blood erythrocytes count (nu mber/volume)Ordered By: Sae Brandt on 06-07-2022 RBC (Bld) [#/Vol] 4.03 10*6/uL 4.2-5.4 [facility] Blood hemoglobin measurement (mass/volume)Ordered By: Sae Brandt on 06-07-2022 Hemoglobin (Bld) [Mass/Vol] 13.0 g/dL 12.0-15. 0 [facility] Blood lymphocytes/100 leukoc ytesOrdered By: Sae Brandt on 06-07-2022 Lymphocytes/100 WBC (Bld) 20.2 % 19-41 [facility] Blood monocytes/100 leukocyt esOrdered By: Sae Brandt on 06-07-2022 Monocytes/100 WBC (Bld) 8.6 % 0-10 [facility] Blood platelet mean volumeOr dered By: Sae Brandt on 06-07-2022 Platelet mean volume (Bld) [Entitic vol] 9.5 fL 6.2-12.0 [facility] Determination of erythrocyte mean corpuscular volume (MCV)Ordered By: Sae Brandt on 06-07-2022 MCV (RBC) [Entitic vol] 99.5 fL 81-99 [facility] Erythrocyte sedimentation ra teOrdered By: Sae Brandt on 06-07-2022 ESR (Bld) [Velocity] 30 mm/h 0-30 [facility] Hematocrit Auto (Bld) [Volum e fraction]Ordered By: Sae Brandt on 06-07-2022 Hematocrit (Bld) [Volume fraction] 40.1 % 37-47 [facility] Interpretation of serum or p lasma protein pattern by immunofixation (narrative resultOrdered By: Sae Brandt on 06-07-2022 Protein Fractions Immunofixation Micheal [Interp] See comment [facility] Comment on above: NOT OBSERVED Laboratory - Chemistry and C hemistry - challengeOrdered By: Sae Brandt on 06-07-2022 ALP [Catalytic activity/Vol] 72 U/L 45-117 [facility] ALT [Catalytic activity/Vol] 25 U/L 13-56 [facility] CO2 [Moles/Vol] 29.0 mmol/L 21.0-32.0 [facility] Urea nitrogen/Creatinine [Mass ratio] 16.9 mg/mg 10-20 [facility] Laboratory - Hematology and Cell countsOrdered By: Sae Brandt on 06-07-2022 Erythrocyte distribution width (RBC) [Entitic vol] 48.0 fL 35.1-43.9 [facility] Erythrocyte distribution width (RBC) [Ratio] 13.1 % 11.6-14.6 [facility] Immature granulocytes/100 WBC (Bld) 0.300 % 0.0-0.9 [facility] Comment on above: IG% - Immature Granu locytes (promyelocytes, myelocytes and metamyelocytes) > 1% indicates that a LEFT SHIFT is Present. MCH (RBC) [Entitic mass] 32.3 pg 27.0-32.0 [facility] Nucleated RBC/100 WBC (Bld) [Ratio] 0 % 0-5 [facility] MCHC Auto (RBC) [Mass/Vol]Or dered By: Sae Brandt on 06-07-2022 MCHC (RBC) [Mass/Vol] 32.4 g/dL 32-36 [facility] No Panel InformationOrdered By: Sae Brandt on 06-07-2022 Addendum Document Comment . [facility] Comment on above: Protein electrophore sis scan will follow via computer,mail, or project development director delivery. Centromere B Antibody 0.3 AI 0.0-0.9 [facility] Endomysial IgA Antibody Negative Negative [facility] Estimated GFR (MDRD) Amer 94 mL/min >60 [facility] Comment on above: GFR Calc Estimated GFR (MDRD) Non-Af Amer 78 mL/min >60 [facility] Comment on above: Non- GFR Calc Immunoglobulin E 25 IU/mL 6-495 [facility] Miscellaneous Test See comment [facility] Comment on above: TEST RESULT LIMITSIB [...] developed and its performance characteristics determined by [employer]. It has not been cleared or approved by the Food and Drug Administration. The FDA has determined that such clearance or approval is not necessary.Atypical pANCA Negative Negative Comments Pattern is not suggestive of Inflammatory Bowel Disease TESTING PERFORMED AT [facility]. ORIGINAL REPORT ON FILE IN LAB CONTAINS ADDITIONAL TEST SITE INFORMATION. 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 Antibody <0.2 AI 0.0-0.9 [facility] Platelets bldOrdered By: Raúl Brandt on 06-07-2022 Platelets (Bld) [#/Vol] 214 10*3/uL 150-450 [facility] Serum DNA double strand anti body assay (units/volume)Ordered By: Sae Brandt on 06-07-2022 DNA double strand Ab Qn (S) 5 [IU]/mL 0-9 [facility] Comment on above: Negative <5 Equivoca l 5 - 9 Positive >9 Serum Ziyad-1 antibody assay (u nits/volume)Ordered By: Sae Brandt on 06-07-2022 Ziyad-1 extractable nuclear Ab Qn (S) <0.2 AI 0.0-0.9 [facility] Serum Scl-70 extractable nuc lear antibody assay (units/volume)Ordered By: Sae Brandt on 06-07-2022 SCL-70 extractable nuclear Ab Qn (S) <0.2 AI 0.0-0.9 [facility] Serum Espinosa extractable nucl ear antibody detectionOrdered By: Sae Brandt on 06-07-2022 Espinosa extractable nuclear Ab Ql (S) <0.2 AI 0.0-0.9 [facility] Serum [id number] measu rement by electrophoresisOrdered By: Sae Brandt on 06-07-2022 Alpha 1 globulin Elph [Mass/Vol] 0.3 g/dL 0.0-0.4 [facility] Alpha 1 globulin Elph [Mass/Vol] 0.7 g/dL 0.4-1.0 [facility] Serum classic neutrophil cyt oplasmic antibody assay (units/volume)Ordered By: Sae Brandt on 06-07-2022 Neutrophil cytoplasmic Ab.classic Qn (S) <1:20 titer Neg:<1:20 [facility] Serum globulin measurement ( mass/volume)Ordered By: Sae Brandt on 06-07-2022 Globulin (S) [Mass/Vol] 3.6 g/dL 2.2-3.9 [facility] Serum or plasma C reactive p rotein measurement (mass/volume)Ordered By: Sae Brandt on 06-07-2022 CRP [Mass/Vol] mg/L 0.0-3.0 [facility] Comment on above: C-Reactive Protein ( CRP) provides useful information for thediagnosis, therapy and monitoring of inflammatory processesand associated diseases. For the evaluation of Relative Riskfor Cardiovascular Disease, a High Sensitivity CRP (HSCRP)should be ordered. Serum or plasma IgA measurem ent (mass/volume)Ordered By: Sae Brandt on 06-07-2022 IgA [Mass/Vol] 338 mg/dL 64-422 [facility] Serum or plasma IgG measurem ent (mass/volume)Ordered By: Sae Brandt on 06-07-2022 IgG [Mass/Vol] 1428 mg/dL [phone] [facility] Serum or plasma IgM measurem ent (mass/volume)Ordered By: Sae Brandt on 06-07-2022 IgM [Mass/Vol] 92 mg/dL 26-217 [facility] Serum or plasma albumin gianluca urement (mass/volume)Ordered By: Sae Brandt on 06-07-2022 Albumin [Mass/Vol] 3.6 g/dL 2.9-4.4 [facility] Serum or plasma albumin/glob ulin mass ratioOrdered By: Sae Brandt on 06-07-2022 Albumin/Globulin [Mass ratio] 0.9 {ratio} 0.9-2.4 [facility] Serum or plasma beta globuli n measurement by electrophoresis (mass/volume)Ordered By: Sae Brandt on 06-07-2022 Beta globulin Elph [Mass/Vol] 1.0 g/dL 0.7-1.3 [facility] Serum or plasma calcium gianluca urement (mass/volume)Ordered By: Sae Brandt on 06-07-2022 Calcium [Mass/Vol] 9.5 mg/dL 8.5-10.1 [facility] Serum or plasma creatinine m easurement (mass/volume)Ordered By: Sae Brandt on 06-07-2022 Creatinine [Mass/Vol] 0.77 mg/dL 0.55-1.02 [facility] Comment on above: The validity of the calculated GFR & GFRAA in patients over 70 years has not been determined. Clinical correlation is essential. Serum or plasma gamma globul in measurement by electrophoresis (mass/volume)Ordered By: Sae Brandt on 06-07-2022 Gamma globulin Elph [Mass/Vol] 1.6 g/dL 0.4-1.8 [facility] Serum or plasma immunoelectr ophoresis interpretation (nominal result)Ordered By: Sea Brandt on 06-07-2022 Interpretation IEP [Interp] Comment . [facility] Comment on above: No monoclonality det ected. Serum or plasma urea nitroge n measurement (mass/volume)Ordered By: Sae Brandt on 06-07-2022 Urea nitrogen [Mass/Vol] 13 mg/dL 7-18 [facility] Serum perinuclear neutrophil cytoplasmic antibody titer by immunofluorescenceOrdered By: Sae Brandt on 06-07-2022 Neutrophil cytoplasmic Ab.perinuclear IF (S) [Titer] <1:20 titer Neg:<1:20 [facility] Comment on above: The presence of posi tive fluorescence exhibiting P-ANCA orC-ANCA patterns alone is not specific for the diagnosis ofWegener's Granulomatosis (WG) or microscopic polyangiitis.Decisions about treatment should not be based solely onANCA IFA results. The [employer] Consensusrecommends follow up testing of positive sera with both VA-3 and MPO-ANCA enzyme immunoassays. As many as 5% serumsamples are positive only by EIA. Ref. AM J Clin Uqynel4953;111:507-513. Serum tissue transglutaminas e IgA antibody assay (units/volume)Ordered By: Sae Brandt on 06-07-2022 tTG IgA Qn (S) <2 U/mL 0-3 [facility] Comment on above: Negative 0 - 3 Weak Positive 4 - 10 Positive >10 Tissue Transglutaminase (tTG) has been identified as the endomysial antigen. Studies have demonstr- ated that endomysial IgA antibodies have over 99% specificity for gluten sensitive enteropathy. Thin prep Papanicolaou smear with manual screeningOrdered By: Sae Brandt on 06-07-2022 Thin prep Papanicolaou smear with manual screening 23 U/L 15-37 [facility] Thin prep Papanicolaou smear with manual screening 8 5-15 [facility] Thin prep Papanicolaou smear with manual screening 1.1 0.7-1.7 [facility] Total protein bloodOrdered B y: Sae Brandt on 06-07-2022 Protein [Mass/Vol] 7.2 g/dL 6.0-8.5 [facility] Absolute lymphocyte countOrd ered By: Dr. Snowden on 03-26-2022 Lymphocytes Auto (Unsp spec) [#/Vol] 1.21 10*3/uL 0.83-4.51 [facility] Basophil percentageOrdered B y: Dr. Snowden on 03-26-2022 Basophils/100 WBC (Bld) 0.5 % 0-1 [facility] Bilirubin [Mass/Vol] 0.40 mg/dL 0.20-1.00 [facility] Comment on above: For patients on eltr ombopag therapy, use of Dim[place] TBIL is not recommended. Chloride [Moles/Vol] 104 mmol/L 98-107 [facility] Cholesterol [Mass/Vol] 176 mg/dL <200 [facility] Comment on above: <200 mg/dL Desirable 200-240 mg/dL Borderline >240 mg/dL High Risk Eosinophils/100 WBC (Bld) 1.9 % 0-5 [facility] Glucose [Mass/Vol] 88 mg/dL 74-106 [facility] Neutrophils (Bld) [#/Vol] 4.0 10*3/uL 2.0-7.7 [facility] Neutrophils/100 WBC (Bld) 67.6 % 47-70 [facility] Potassium [Moles/Vol] 4.1 mmol/L 3.5-5.1 [facility] Protein [Mass/Vol] 7.0 g/dL 6.4-8.2 [facility] Sodium [Moles/Vol] 140 mmol/L 136-145 [facility] Triglyceride [Mass/Vol] 113 mg/dL <199 [facility] Comment on above: The drugs N-Acetylcy steine and Metamizole may falsely depress this assay.Serum Triglycerides Reference Interval Normal <150 mg/dL Borderline high 150 - 199 mg/dL High 200 - 499 mg/dL Very High > or = 500 mg/dL WBC (Bld) [#/Vol] 5.9 10*3/uL 4.4-11.0 [facility] Blood erythrocytes count (nu mber/volume)Ordered By: Dr. Snowden on 03-26-2022 RBC (Bld) [#/Vol] 4.01 10*6/uL 4.2-5.4 [facility] Blood hemoglobin measurement (mass/volume)Ordered By: Dr. Snowden on 03-26-2022 Hemoglobin (Bld) [Mass/Vol] 12.6 g/dL 12.0-15. 0 [facility] Blood lymphocytes/100 leukoc ytesOrdered By: Dr. Snowedn on 03-26-2022 Lymphocytes/100 WBC (Bld) 20.4 % 19-41 [facility] Blood monocytes/100 leukocyt esOrdered By: Dr. Snowden on 03-26-2022 Monocytes/100 WBC (Bld) 9.3 % 0-10 [facility] Blood platelet mean volumeOr dered By: Dr. Snowden on 03-26-2022 Platelet mean volume (Bld) [Entitic vol] 10.1 fL 6.2-12.0 [facility] Determination of erythrocyte mean corpuscular volume (MCV)Ordered By: Dr. Snowden on 03-26-2022 MCV (RBC) [Entitic vol] 99.0 fL 81-99 [facility] Hematocrit Auto (Bld) [Volum e fraction]Ordered By: Dr. Snowden on 03-26-2022 Hematocrit (Bld) [Volume fraction] 39.7 % 37-47 [facility] Laboratory - Chemistry and C hemistry - challengeOrdered By: Dr. Snowden on 03-26-2022 ALP [Catalytic activity/Vol] 64 U/L 45-117 [facility] ALT [Catalytic activity/Vol] 23 U/L 13-56 [facility] CO2 [Moles/Vol] 28.0 mmol/L 21.0-32.0 [facility] Globulin (S) [Mass/Vol] 3.6 g/dL 2.2-4.2 [facility] Urea nitrogen/Creatinine [Mass ratio] 18.9 mg/mg 10-20 [facility] Laboratory - Hematology and Cell countsOrdered By: Dr. Snowden on 03-26-2022 Erythrocyte distribution width (RBC) [Entitic vol] 47.1 fL 35.1-43.9 [facility] Erythrocyte distribution width (RBC) [Ratio] 13.1 % 11.6-14.6 [facility] Immature granulocytes/100 WBC (Bld) 0.300 % 0.0-0.9 [facility] Comment on above: IG% - Immature Granu locytes (promyelocytes, myelocytes and metamyelocytes) > 1% indicates that a LEFT SHIFT is Present. MCH (RBC) [Entitic mass] 31.4 pg 27.0-32.0 [facility] Nucleated RBC/100 WBC (Bld) [Ratio] 0 % 0-5 [facility] MCHC Auto (RBC) [Mass/Vol]Or dered By: Dr. Snowden on 03-26-2022 MCHC (RBC) [Mass/Vol] 31.7 g/dL 32-36 [facility] No Panel InformationOrdered By: Dr. Snowden on 03-26-2022 Estimated GFR (MDRD) Amer 98 mL/min >60 [facility] Comment on above: GFR Calc Estimated GFR (MDRD) Non-Af Amer 81 mL/min >60 [facility] Comment on above: Non- GFR Calc Thyroid Stimulating Hormone (TSH) 0.92 uIU/mL 0.358-3.74 [facility] Vitamin D 25-Hydroxy 78.9 ng/mL [facility] Comment on above: Vitamin D 25(OH) Sta tus Range Deficiency <20 ng/mL (50nmol/L) Insufficiency 20 - 30 ng/mL (50 - 75 nmol/L) Sufficiency 30 - 100 ng/mL (75 - 250 nmol/L) Toxicity >100 ng/mL (>250 nmol/L) Platelets bldOrdered By: Dr. Snowden on 03-26-2022 Platelets (Bld) [#/Vol] 221 10*3/uL 150-450 [facility] Serum or plasma albumin gianluca urement (mass/volume)Ordered By: Dr. Snowden on 03-26-2022 Albumin [Mass/Vol] 3.4 g/dL 3.2-5.0 [facility] Serum or plasma albumin/glob ulin mass ratioOrdered By: Dr. Snowden on 03-26-2022 Albumin/Globulin [Mass ratio] 0.9 {ratio} 0.9-2.4 [facility] Serum or plasma calcium gianluca urement (mass/volume)Ordered By: Dr. Snowden on 03-26-2022 Calcium [Mass/Vol] 8.8 mg/dL 8.5-10.1 [facility] Serum or plasma cholesterol in HDL measurement (mass/volume)Ordered By: Dr. Snowden on 03-26-2022 Cholesterol in HDL [Mass/Vol] 60 mg/dL >40 [facility] Comment on above: The drugs N-Acetylcy steine and Metamizole may falsely depress this assay. Reference Range HDL <40 mg/dL Low HDL Cholesterol HDL >or= 60 mg/dL High HDL Cholesterol Serum or plasma cholesterol in VLDL measurement (mass/volume)Ordered By: Dr. Snowden on 03-26-2022 Cholesterol in VLDL [Mass/Vol] 23 mg/dL 5-40 [facility] Serum or plasma creatinine m easurement (mass/volume)Ordered By: Dr. Snowden on 03-26-2022 Creatinine [Mass/Vol] 0.74 mg/dL 0.55-1.02 [facility] Comment on above: The validity of the calculated GFR & GFRAA in patients over 70 years has not been determined. Clinical correlation is essential. Serum or plasma low density lipoprotein (LDL) cholesterol measurement (mass/volume)Ordered By: Dr. Snowden on 03-26-2022 Cholesterol in LDL [Mass/Vol] 93 mg/dL 0-130 [facility] Serum or plasma urea nitroge n measurement (mass/volume)Ordered By: Dr. Snowden on 03-26-2022 Urea nitrogen [Mass/Vol] 14 mg/dL 7-18 [facility] Thin prep Papanicolaou smear with manual screeningOrdered By: Dr. Snowden on 03-26-2022 Thin prep Papanicolaou smear with manual screening 18 U/L 15-37 [facility] Thin prep Papanicolaou smear with manual screening 8 5-15 [facility] Absolute lymphocyte counton 09-25-2021 Lymphocytes Auto (Unsp spec) [#/Vol] 1.32 10*3/uL 0.83-4.51 [facility] Work Phone: [phone] Basophil percentageon 2021 Basophils/100 WBC (Bld) 0.6 % 0-1 [facility] Work Phone: [phone] Bilirubin [Mass/Vol] 0.40 mg/dL 0.20-1.00 [facility] Work Phone: [phone] Comment on above: For patients on eltr ombopag therapy, use of Dim[employer] [place] TBIL is not recommended. Chloride [Moles/Vol] 106 mmol/L 98-107 [facility] Work Phone: [phone] Cholesterol [Mass/Vol] 170 mg/dL <200 [facility] Work Phone: [phone] Comment on above: <200 mg/dL Desirable 200-240 mg/dL Borderline >240 mg/dL High Risk Eosinophils/100 WBC (Bld) 2.4 % 0-5 [facility] Work Phone: Glucose [Mass/Vol] 96 mg/dL 74-106 [facility] Work Phone: Neutrophils (Bld) [#/Vol] 4.8 10*3/uL 2.0-7.7 [facility] Work Phone: [phone] Neutrophils/100 WBC (Bld) 68.8 % 47-70 [facility] Work Phone: [phone] Potassium [Moles/Vol] 3.9 mmol/L 3.5-5.1 [facility] Work Phone: [phone] Protein [Mass/Vol] 7.2 g/dL 6.4-8.2 [facility] Work Phone: [phone] Sodium [Moles/Vol] 141 mmol/L 136-145 [facility] Work Phone: [phone] Triglyceride [Mass/Vol] 93 mg/dL <199 [facility] Work Phone: Comment on above: The drugs N-Acetylcy steine and Metamizole may falsely depress this assay.Serum Triglycerides Reference Interval Normal <150 mg/dL Borderline high 150 - 199 mg/dL High 200 - 499 mg/dL Very High > or = 500 mg/dL WBC (Bld) [#/Vol] 7.0 10*3/uL 4.4-11.0 [facility] Work Phone: [phone] Blood erythrocytes count (nu mber/volume)on 09-25-2021 RBC (Bld) [#/Vol] 4.05 10*6/uL 4.2-5.4 [facility] Work Phone: [phone] Blood hemoglobin measurement (mass/volume)on 09-25-2021 Hemoglobin (Bld) [Mass/Vol] 12.8 g/dL 12.0-15. 0 [facility] Work Phone: Blood lymphocytes/100 leukoc yteson 09-25-2021 Lymphocytes/100 WBC (Bld) 18.9 % 19-41 [facility] Work Phone: Blood monocytes/100 leukocyt eson 09-25-2021 Monocytes/100 WBC (Bld) 9.0 % 0-10 [facility] Work Phone: [phone] Blood platelet mean volumeon 09-25-2021 Platelet mean volume (Bld) [Entitic vol] 10.1 fL 6.2-12.0 [facility] Work Phone: Determination of erythrocyte mean corpuscular volume (MCV)on 09-25-2021 MCV (RBC) [Entitic vol] 98.3 fL 81-99 [facility] Work Phone: [phone] Hematocrit Auto (Bld) [Volum e fraction]on 09-25-2021 Hematocrit (Bld) [Volume fraction] 39.8 % 37-47 [facility] Work Phone: [phone] Laboratory - Chemistry and C hemistry - challengeon 09-25-2021 ALP [Catalytic activity/Vol] 62 U/L 45-117 [facility] Work Phone: [phone] ALT [Catalytic activity/Vol] 20 U/L 13-56 [facility] Work Phone: [phone] CO2 [Moles/Vol] 29.0 mmol/L 21.0-32.0 [facility] Work Phone: [phone] Globulin (S) [Mass/Vol] 3.7 g/dL 2.2-4.2 [facility] Work Phone: [phone] Urea nitrogen/Creatinine [Mass ratio] 17.0 mg/mg 10-20 [facility] Work Phone: [phone] Laboratory - Hematology and Cell countson 09-25-2021 Erythrocyte distribution width (RBC) [Entitic vol] 47.1 fL 35.1-43.9 [facility] Work Phone: [phone] Erythrocyte distribution width (RBC) [Ratio] 13.2 % 11.6-14.6 [facility] Work Phone: [phone] Immature granulocytes/100 WBC (Bld) 0.300 % 0.0-0.9 [facility] Work Phone: [phone] Comment on above: IG% - Immature Granu locytes (promyelocytes, myelocytes and metamyelocytes) > 1% indicates that a LEFT SHIFT is Present. MCH (RBC) [Entitic mass] 31.6 pg 27.0-32.0 [facility] Work Phone: [phone] Nucleated RBC/100 WBC (Bld) [Ratio] 0 % 0-5 [facility] Work Phone: [phone] MCHC Auto (RBC) [Mass/Vol]on 09-25-2021 MCHC (RBC) [Mass/Vol] 32.2 g/dL 32-36 [facility] Work Phone: No Panel Informationon 09-25 Estimated GFR (MDRD) Amer 95 mL/min >60 [facility] Work Phone: Comment on above: GFR Calc Estimated GFR (MDRD) Non-Af Amer 78 mL/min >60 [facility] Work Phone: Comment on above: Non- GFR Calc Thyroid Stimulating Hormone (TSH) 0.89 uIU/mL 0.358-3.74 [facility] Work Phone: Vitamin D 25-Hydroxy 76.5 ng/mL [facility] Work Phone: Comment on above: Vitamin D 25(OH) Sta tus Range Deficiency <20 ng/mL (50nmol/L) Insufficiency 20 - 30 ng/mL (50 - 75 nmol/L) Sufficiency 30 - 100 ng/mL (75 - 250 nmol/L) Toxicity >100 ng/mL (>250 nmol/L) Platelets bldon 09-25-2021 Platelets (Bld) [#/Vol] 227 10*3/uL 150-450 [facility] Work Phone: Serum or plasma albumin gianluca urement (mass/volume)on 09-25-2021 Albumin [Mass/Vol] 3.5 g/dL 3.2-5.0 [facility] Work Phone: Serum or plasma albumin/glob ulin mass ratioon 09-25-2021 Albumin/Globulin [Mass ratio] 0.9 {ratio} 0.9-2.4 [facility] Work Phone: Serum or plasma calcium gianluca urement (mass/volume)on 09-25-2021 Calcium [Mass/Vol] 9.2 mg/dL 8.5-10.1 [facility] Work Phone: Serum or plasma cholesterol in HDL measurement (mass/volume)on 09-25-2021 Cholesterol in HDL [Mass/Vol] 60 mg/dL >40 [facility] Work Phone: Comment on above: The drugs N-Acetylcy steine and Metamizole may falsely depress this assay. Reference Range HDL <40 mg/dL Low HDL Cholesterol HDL >or= 60 mg/dL High HDL Cholesterol Serum or plasma cholesterol in VLDL measurement (mass/volume)on 09-25-2021 Cholesterol in VLDL [Mass/Vol] 19 mg/dL 5-40 [facility] Work Phone: Serum or plasma creatinine m easurement (mass/volume)on 09-25-2021 Creatinine [Mass/Vol] 0.76 mg/dL 0.55-1.02 [facility] Work Phone: Comment on above: The validity of the calculated GFR & GFRAA in patients over 70 years has not been determined. Clinical correlation is essential. Serum or plasma low density lipoprotein (LDL) cholesterol measurement (mass/volume)on 09-25-2021 Cholesterol in LDL [Mass/Vol] 91 mg/dL 0-130 [facility] Work Phone: Serum or plasma urea nitroge n measurement (mass/volume)on 09-25-2021 Urea nitrogen [Mass/Vol] 13 mg/dL 7-18 [facility] Work Phone: Thin prep Papanicolaou smear with manual screeningon 09-25-2021 Thin prep Papanicolaou smear with manual screening 15 U/L 15-37 [facility] Work Phone: Thin prep Papanicolaou smear with manual screening 6 5-15 [facility] Work Phone: Lab Report: Basic Metabolic Profile (BMP)on 12-17-2016 Anion gap 6 mmol/L Invalid Interpretation Code 5-15 [facility] Work Phone: [phone] BUN/Creatinine Ratio 14.8 RATIO Invalid Interpretation Code 10-20 [facility] Work Phone: [phone] Calcium 9.2 mg/dL Invalid Interpretation Code 8.5-10.1 [facility] Work Phone: [phone] Chloride 102 mmol/L Invalid Interpretation Code 98-107 [facility] Work Phone: [phone] CO2 30.0 mmol/L Invalid Interpretation Code 21.0-32.0 [facility] Phone: [phone] Creatinine 0.74 mg/dL Invalid Interpretation Code 0.55-1.02 [facility] Phone: [phone] eGFR (non-black) 82 mL/min/{1.73_m2} Invalid Interpretation Code >60 [employer] Work Phone: [phone] eGFR (non-black) 99 mL/min/{1.73_m2} Invalid Interpretation Code >60 [employer] Work Phone: [phone] Glucose 90 mg/dL Invalid Interpretation Code 70-110 [facility] Phone: [phone] Potassium 3.9 mmol/L Invalid Interpretation Code 3.5-5.1 [facility] Phone: [phone] Sodium 138 mmol/L Invalid Interpretation Code 136-145 [facility] Phone: [phone] Urea nitrogen 11 mg/dL Invalid Interpretation Code 7-18 [facility] Phone: [phone] Office Visiton 12-17-2016 Documentation of current medications (procedure) Done Invalid Interpretation Code [facility] Phone: [phone] Fall risk assessment Yes Invalid Interpretation Code [facility] Phone: [phone] Clinical Lists Update: Prelo tariff inspector 06-07-2016 Left ventricular Ejection fraction 65-70 Invalid Interpretation Code [facility] Phone: Office Visiton 06-13-2015 Tobacco use CPHS Never smoker Invalid Interpretation Code [facility] Phone: [phone] External Other: Preferred Me thod of Contacton 03-08-2015 Patient's prefered method of contact phone Invalid Interpretation Code [facility] Phone: Office Visit: [facility] 03-08-20 Dietary management education, guidance, and counseling (procedure) yes Invalid Interpretation Code [facility] Phone: [phone] General cardiovascular disease 10Y risk [#] [place].D'Agostino 15 % Invalid Interpretation Code [facility] Phone: [phone] Clinical Lists Update: Prelo tariff inspector 11-12-2014 Magnesium 1.6 mg/dL Low [employer] Work Phone: [phone] Office Visiton 08-05-2014 cardiac risk group B Invalid Interpretation Code [employer]) Work Phone: [phone] Clinical Lists Update: 05-23-2014 Cholesterol 171 mg/dL Invalid Interpretation Code [employer] Work Phone: [phone] HDL Cholesterol 46 mg/dL Invalid Interpretation Code [employer] Work Phone: [phone] LDL Cholesterol 109 mg/dL Invalid Interpretation Code [employer] Work Phone: [phone] Triglyceride 78 mg/dL Invalid Interpretation Code [employer]) Work Phone: [phone] very low density lipoproteins 16 mg/dL Invalid Interpretation Code [employer]) Work Phone: [phone] Clinical Lists Update: 05-22-2014 basophils as percent of blood leukocytes, manual count 0.5 % Invalid Interpretation Code [employer]) Work Phone: [phone] eosinophils as percent of blood leukocytes, manual count 0.7 % Invalid Interpretation Code [employer]) Work Phone: [phone] Erythrocytes (RBC) 4.37 10*6/uL Invalid Interpretation Code [employer]) Work Phone: [phone] Hematocrit (HCT) 40.7 % Invalid Interpretation Code [employer] ([employer]) Work Phone: [phone] Hemoglobin (HGB) 13.9 g/dL Invalid Interpretation Code [employer]) Work Phone: [phone] Lymphocytes/100 leukocytes 15.7 % Low [employer] ([employer]) Work Phone: [phone] MCH 31.8 pg Invalid Interpretation Code [employer]) Work Phone: [phone] MCHC 34.2 g/dL Invalid Interpretation Code [employer]) Work Phone: [phone] MCV 93.1 fL Invalid Interpretation Code [employer]) Work Phone: [phone] Monocytes/100 leukocytes 6.6 % Invalid Interpretation Code [employer]) Work Phone: [phone] neutrophils, band form as percent of blood leukocytes, manual count 76.3 % High [employer] ([employer]quired [employer]) Work Phone: [phone] Platelets 244 10*3/mm3 Invalid Interpretation Code [facility] Work Phone: [phone] RDW-CA 13.0 % Invalid Interpretation Code [facility] Work Phone: [phone] Thyroid stimulating hormone (TSH) 0.88 u[iU]/mL Invalid Interpretation Code [facility] Work Phone: [phone] WBC (Leukocytes) 6.1 10*3/uL Invalid Interpretation Code [facility] Work Phone: [phone] Clinical Lists Update: Prelo tariff inspector 06-23-2012 Albumin 4.0 g/dL Invalid Interpretation Code [employer] Work Phone: [phone] Albumin/Globulin Ratio 1.0 {ratio} Invalid Interpretation Code [facility] Work Phone: [phone] Alkaline phosphatase (ALP) 95 U/L Inval id Interpretation Code [employer]) Work Phone: [phone] Aspartate aminotransferase (AST) 24 U/L Invalid Interpretation Code [facility] Work Phone: [phone] Bilirubin (total) 0.20 mg/dL Invalid Interpretation Code [employer]) Work Phone: [phone] Globulin 3.9 g/dL Invalid Interpretation Code [employer]) Work Phone: [phone] Protein 7.9 g/dL Invalid Interpretation Code [employer]) Work Phone: [phone] Lab Reporton 06-13-2011 Alanine aminotransferase (ALT) 42 U/L Invalid Interpretation Code [employer]) Work Phone: [phone] Bilirubin (direct) 0.12 mg/dL Invalid Interpretation Code [employer]quired [employer]) Work Phone: [phone] Vital Signs Date Time Vital Sign Value Performing Clinician Facility 08-13-2024 07:56-0400 Diastolic blood pressure 103 mm[Hg] Seth Chowdary MD Work Phone: [facility] 08-13-2024 07:56-0400 Heart rate 98 /min Seth Chowdary MD Work Phone: [facility] 08-13-2024 07:56-0400 Systolic blood pressure 148 mm[Hg] Seth Chowdary MD Work Phone: [facility] 08-13-2024 07:52-0400 Body height 147.3 cm Seth Chowdary MD Work Phone: [facility] 08-13-2024 07:52-0400 Body mass index (BMI) [Ratio] 31.33 kg/m2 Seth Chowdary MD Work Phone: [facility] 08-13-2024 07:52-0400 Body weight 68 kg Seth Chowdary MD Work Phone: [facility] 08-13-2024 07:52-0400 Respiratory rate 18 /min Seth Chowdary MD Work Phone: [facility] 07-21-2024 12:56-0400 Body height 147.3 cm Jovanni Matthew MD Work Phone: [facility] 07-21-2024 12:56-0400 Body mass index (BMI) [Ratio] 31.35 kg/m2 Jovanni Matthew MD Work Phone: [facility] 07-21-2024 12:56-0400 Body weight 68.04 kg Jovanni Matthew MD Work Phone: [facility] 07-21-2024 12:56-0400 Diastolic blood pressure 75 mm[Hg] Jovanni Matthew MD Work Phone: [facility] 07-21-2024 12:56-0400 Heart rate 98 /min Jovanni Matthew MD Work Phone: [facility] 07-21-2024 12:56-0400 SaO2% (BldA) [Mass fraction] 96 % Jovanni Matthew MD Work Phone: [facility] 07-21-2024 12:56-0400 Systolic blood pressure 109 mm[Hg] Jovanni Matthew MD Work Phone: [facility] 05-21-2024 08:45-0500 Heart rate 71 /min Dr. Michael Snowden MD Work Phone: [facility] 05-21-2024 08:40-0500 Body temperature 98 [degF] Dr. Michael Snowden MD Work Phone: 2(500)363-434515 [place] [address] 05-21-2024 08:40-0500 Diastolic blood pressure 87 mm[Hg] Dr. Michael Snowden MD Work Phone: 8(947)670-244915 [place] [address] 05-21-2024 08:40-0500 Respiratory rate 17 /min Dr. Michael Snowden MD Work Phone: 8(400)722-373217 [place] [address] 05-21-2024 08:40-0500 SaO2% (BldA) [Mass fraction] 95 % Dr. Michael Snowden MD Work Phone: 0(025)862-780617 [place] [address] 05-21-2024 08:40-0500 Systolic blood pressure 144 mm[Hg] Dr. Michael Snowden MD Work Phone: 0(071)458-790817 [place] [address] 05-18-2024 11:00-0500 Body mass index (BMI) [Ratio] 32.5 kg/m2 Dr. Michael Snowden MD Work Phone: 0(784)793-408417 [place] [address] 05-18-2024 11:00-0500 Body weight 70.[address] Michael Snowden MD Work Phone: 2(584)068-559817 [place] [address] 05-15-2024 05:41-0500 Inhaled oxygen flow rate 97 L/min Dr. Michael Snowden MD Work Phone: 7(113)676-372317 [place] [address] 05-12-2024 13:31-0500 Body height 147.[address] Michael Snowden MD Work Phone: 2(890)613-710617 [place] [address] 04-16-2024 10:20-0500 Heart rate 70 /min Dr. Michael Snowden MD Work Phone: 5(889)944-128415 [place] [address] 04-16-2024 10:10-0500 Body temperature 98.3 [degF] Dr. Michael Snowden MD Work Phone: 7(933)461-861817 [place] [address] 04-16-2024 10:10-0500 Diastolic blood pressure 71 mm[Hg] Dr. Michael Snowden MD Work Phone: 9(178)294-108817 [place] [address] 04-16-2024 10:10-0500 Respiratory rate 18 /min Dr. Michael Snowden MD Work Phone: 6(030)522-418715 [place] [address] 04-16-2024 10:10-0500 SaO2% (BldA) [Mass fraction] 95 % Dr. Michael Snowden MD Work Phone: 7(525)563-498315 [place] [address] 04-16-2024 10:10-0500 Systolic blood pressure 109 mm[Hg] Dr. Michael Snowden MD Work Phone: 2(619)507-107917 [place] [address] 04-15-2024 15:36-0500 Body weight 70.[address] Michael Snowden MD Work Phone: 8(628)249-727417 [place] [address] 04-11-2024 14:41-0500 Body mass index (BMI) [Ratio] 32.5 kg/m2 Dr. Michael Snowden MD Work Phone: 4(924)938-978117 [place] [address] 03-31-2024 00:00-0500 Body temperature 98 [degF] Dr. Michael Snowden MD Work Phone: 4(503)412-950417 [place] [address] 03-31-2024 00:00-0500 Diastolic blood pressure 78 mm[Hg] Dr. Michael Snowden MD Work Phone: 3(886)782-374217 [place] [address] 03-31-2024 00:00-0500 Heart rate 84 /min Dr. Michael Snowden MD Work Phone: 2(353)696-806617 [place] [address] 03-31-2024 00:00-0500 Respiratory rate 16 /min Dr. Michael Snowden MD Work Phone: 9(345)951-908217 [place] [address] 03-31-2024 00:00-0500 SaO2% (BldA) [Mass fraction] 99 % Dr. Michael Snowden MD Work Phone: 6(343)507-016817 [place] [address] 03-31-2024 00:00-0500 Systolic blood pressure 145 mm[Hg] Dr. Michael Snowden MD Work Phone: 2(734)431-107517 [place] [address] 05-09-2023 13:06-0500 Body height 149.[address] Micheal Snowden Work Phone: 3(998)770-042817 [place] [address] 05-09-2023 13:06-0500 Body mass index (BMI) [Ratio] 30.9 kg/m2 Dr. Michael Snowden Work Phone: 3(355)057-369315 [place] [address] 05-09-2023 13:06-0500 Body weight 69.[address] Michael Snowden Work Phone: 2(893)160-832915 [place] [address] 05-09-2023 13:06-0500 Diastolic blood pressure 86 mm[Hg] Dr. Michael Snowden Work Phone: 1(744)472-124815 [place] [address] 05-09-2023 13:06-0500 Heart rate 59 /min Dr. Michael Snowden Work Phone: 5(416)072-572415 [place] [address] 05-09-2023 13:06-0500 Respiratory rate 18 /min Dr. Michael Snowden Work Phone: 1(293)553-500417 [place] [address] 05-09-2023 13:06-0500 SaO2% (BldA) [Mass fraction] 95 % Dr. Michael Snowden Work Phone: 0(746)521-083138 [address] 05-09-2023 13:06-0500 Systolic blood pressure 154 mm[Hg] Dr. Michael Snowden Work Phone: 3(119)355-831317 [place] [address] 01-06-2023 14:34-0400 Body height 149.[address] Michael Snowden Work Phone: 1(362)902-478117 [place] [address] 01-06-2023 14:34-0400 Body mass index (BMI) [Ratio] 29.9 kg/m2 Dr. Michael Snowden Work Phone: 3(545)161-289017 [place] [address] 01-06-2023 14:34-0400 Body weight 67.[address] Michael Snowden Work Phone: 2(536)952-555617 [place] [address] 01-06-2023 14:34-0400 Diastolic blood pressure 80 mm[Hg] Dr. Michael Snowden Work Phone: 5(161)061-342217 [place] [address] 01-06-2023 14:34-0400 Heart rate 54 /min Dr. Michael Snowden Work Phone: 3(204)124-025015 [place] [address] 01-06-2023 14:34-0400 Respiratory rate 18 /min Dr. Michael Snowden Work Phone: 2(653)291-179315 [place] [address] 01-06-2023 14:34-0400 SaO2% (BldA) [Mass fraction] 95 % Dr. Michael Snowden Work Phone: [facility] 01-06-2023 14:34-0400 Systolic blood pressure 171 mm[Hg] Dr. Michael Snowden Work Phone: [facility] 01-04-2022 08:47-0400 Body height 149.[address] Michael Snowden Work Phone: [facility] Work Phone: 01-04-2022 08:47-0400 Body mass index (BMI) [Ratio] 31.3 kg/m2 Dr. Michael Snowden Work Phone: [facility] Work Phone: 01-04-2022 08:47-0400 Body weight 70.[address] Michael Snowden Work Phone: [facility] Work Phone: 01-04-2022 08:47-0400 Heart rate 52 /min Dr. Michael Snowden Work Phone: [facility] Work Phone: 01-04-2022 08:47-0400 Respiratory rate 16 /min Dr. Michael Snowden Work Phone: [facility] Work Phone: 01-04-2022 08:47-0400 SaO2% (BldA) [Mass fraction] 98 % Dr. Michael Snowden Work Phone: [facility] Work Phone: 12-17-2016 13:13-0400 BMI (Body Mass Index) 34.13 kg/m2 [facility] Work Phone: 12-17-2016 13:13-0400 BP Diastolic 80 mm[Hg] [facility] Work Phone: 12-17-2016 13:13-0400 BP Systolic 170 mm[Hg] [facility] Work Phone: 12-17-2016 13:130400 Height 149.86 cm [facility] Work Phone: 12-17-2016 13:13-0400 Pulse (Heart Rate) 56 /min [facility] Work Phone: 12-17-2016 13:130400 Respiratory Rate 20 /min [facility] Work Phone: 12-17-2016 13:13-0400 Weight 76.66 kg [facility] Work Phone: 06-13-2015 15:00-0400 BSA (Body Surface Area) 1.7 m2 [facility] Work Phone: 08-05-2014 13:18-0400 BP Diastolic 80 mm[Hg] [facility] Work Phone: 08-05-2014 13:18-0400 BP Systolic 114 mm[Hg] [facility] Work [...] 10:28-0500 Diastolic blood pressure 84 mm[Hg] [facility] Work Phone: Comment on above: Patient Position: Sitting; Cuff Location : Right Arm; Cuff Size: Standard 12-20-2006 10:28-0500 Head Occipital-frontal circumference 0 cm Day [...] Date Encounter Type Care Provider Facility Start: 09-14-2024 ambulatory [facility] Facility:[facility] Start: 09-07-2024 End: 09-07-2024 Telephone encounter Ajay Grant MD Work Phone: Endocrinology Start: 09-07-2024 ambulatory [facility] Facility:[facility] Start: 08-31-2024 ambulatory [facility] Facility:[facility] Start: 08-31-2024 Audra villalpando NP-Michael -ANTHONY - [place] Start: 08-25-2024 End: 08-25-2024 ambulatory Ajay Grant MD Work Phone: Endocrinology Comment on above: Medication denial Start: 08-25-2024 End: 08-25-2024 E-mail encounter from caregiver Ajay Grant MD Work Phone: Endocrinology Start: 08-24-2024 ambulatory [facility] Facility:[facility] Start: 08-24-2024 Nikia VELAZCO - [place] Start: 08-22-2024 End: 08-22-2024 Telephone encounter Ajay Grant MD Work Phone: Endocrinology [facility] [place] Comment on above: Medication Preauthor ization (Evenity 210mg- Denied) Start: 08-17-2024 End: 08-17-[address] Michael Snowden MD Work Phone: [facility] Work Phone: Start: 08-17-2024 End: 08-17-2024 Nikia Cabezas Start: 08-16-2024 End: 08-17-2024 ambulatory Ajay Grant MD Work Phone: Endocrinology Comment on above: Medication update Start: 08-16-2024 End: 08-16-2024 E-mail encounter from caregiver Ajay Grant MD Work Phone: Endocrinology Start: 08-13-2024 End: 08-13-2024 Patient encounter procedure Seth Chowdary MD Work Phone: Sp[facility] [place] Comment on above: Acquired spondylolis thesis (Primary Dx); Cervical spondylosis without myelopathy; Neural foraminal stenosis of lumbar spine; Closed compression fracture of body of L1 vertebra (HCC) Start: 08-13-2024 End: 08-13-2024 ambulatory SETH CHOWDARY Facility:[facility] Start: 08-10-2024 End: 08-10-[address] Michael Snowden MD Work Phone: [facility] Work Phone: Start: 08-10-2024 End: 08-10-2024 Nikia Cabezas Start: 08-10-2024 End: 08-10-2024 ambulatory Nikia JAVIER Facility:[facility] Start: 08-03-2024 End: 08-03-[address] Michael Snowden MD Work Phone: [facility] Work Phone: Start: 08-03-2024 End: 08-03-2024 Adura Cabezas Start: 08-03-2024 End: 08-03-2024 ambulatory Michael Snowden Facility:[facility] Start: 07-27-2024 End: 07-27-2024 Audra MANUEL -ANTHONY Cabezas Start: 07-27-2024 End: 07-27-2024 ambulatory Michael Snowden Facility:[facility] Start: 07-21-2024 End: 07-21-2024 ambulatory MILLIE PETTY Facility:[facility] Start: 07-21-2024 End: 07-21-2024 ambulatory AJAY EDY LYNN Facility:[facility] Start: 07-21-2024 End: 07-21-2024 Patient encounter procedure Jovanni Matthew MD Work Phone: Rehab Medicine Comment on above: Osteopenia, unspecif ied location (Primary Dx); History of vertebral compression fracture; Spondylolisthesis, grade 3 Start: 07-21-2024 End: 07-21-2024 ambulatory JOVANNI MATTHEW Facility:[facility] Start: 07-20-2024 End: 07-20-[address] Michael Snowden MD Work Phone: [facility] Work Phone: Start: 07-20-2024 End: 07-20-2024 Nikia Cabezas Start: 07-20-2024 End: 07-20-2024 ambulatory Nikia JAVIER Facility:[facility] Start: 07-13-2024 End: 07-13-[address] Michael Snowden MD Work Phone: [facility] Work Phone: Start: 07-13-2024 End: 07-13-2024 Nikia Cabezas Start: 07-13-2024 End: 07-13-2024 ambulatory Nikia JAVIER Facility:[facility] Start: 07-06-2024 Registered Referred Nikia Cabezas Start: 07-06-2024 End: 07-06-2024 Nikia Cabezas Start: 07-06-2024 End: 07-06-2024 ambulatory Efewfedebe Olejanicee OLS Facility:[facility] Start: 06-29-2024 Registered Referred Audra izaguirre DIMPLING MACHINE OPERATOR-C -[facility] [place] Start: 06-29-2024 End: 06-29-2024 Audra Drake NP-C -[facility] [place] Start: 06-29-2024 End: 06-29-2024 ambulatory Michael Chi Sp Facility:[facility] Start: 06-23-2024 End: 06-23-2024 ambulatory Michael Chi Sp [facility] Start: 06-23-2024 End: 06-23-2024 Audra Drake NP-C -[facility] Work Phone: Start: 06-22-2024 End: 06-22-[address] Michael Snowden MD Work Phone: [facility] Work Phone: Start: 06-22-2024 Registered Referred Audra izaguirre DIMPLING MACHINE OPERATOR-C -[facility] [place] Start: 06-22-2024 End: 06-22-2024 Audra Drake NP-C -[facility] [place] Start: 06-22-2024 End: 06-22-2024 ambulatory Michael Chi Sp Facility:[facility] Start: 06-15-2024 End: 06-15-[address] Michael Snowden MD Work Phone: [facility] Work Phone: Start: 06-15-2024 End: 06-15-2024 Departed Referred Nikia Cabezas Start: 06-15-2024 Registered Referred Nikia Cabezas Start: 06-15-2024 End: 06-15-2024 Nikia Cabezas Start: 06-15-2024 End: 06-15-2024 ambulatory Nikia Henderson OLS Facility:[facility] Start: 06-08-2024 End: 06-08-2024 Departed Referred Nikia Cabezas Start: 06-08-2024 Registered Referred Nikia Cabezas Start: 06-08-2024 End: 06-08-2024 Nikia Cabezas Start: 06-08-2024 End: 06-08-2024 ambulatory Nikia JAVIER Facility:[facility] Start: 06-01-2024 End: 06-01-[address] Michael Snowden MD Work Phone: [facility] Work Phone: Start: 06-01-2024 End: 06-01-2024 Departed Referred Nikia Cabezas Start: 06-01-2024 End: 06-01-2024 Nikia Cabezas Start: 06-01-2024 End: 06-01-2024 ambulatory Nikia Jainromi JAVIER Facility:[facility] Start: 05-25-2024 End: 05-25-2024 ambulatory Michael Snowden Facility:[facility] Start: 05-25-2024 End: 05-25-[address] Nikia Henderson MD -[facility] Work Phone: Start: 05-25-2024 End: 05-25-2024 Dr. Nikia Henderson MD -[facility] Work Phone: Start: 05-21-2024 End: 05-21-2024 ambulatory Audra Drake DIMPLING MACHINE OPERATOR Facility:[facility] Start: 05-21-2024 End: 05-21-2024 Patient encounter procedure Audra Drake DIMPLING MACHINE OPERATOR-C -[facility] Work Phone: Start: 05-21-2024 End: 05-21-2024 Audra Drake DIMPLING MACHINE OPERATOR-C -[facility] Work Phone: Start: 04-16-2024 End: 05-21-2024 Dr. Michael Snowden MD -Transitional Care Unit Start: 04-16-2024 End: 05-21-2024 Evaluation and management of inpatient Dr. Michael Snowden MD -Trans[facility] Care [facility] Start: 04-16-2024 Non-patient / Non-visit Dr. Minerva Hernandez MD -[facility] Work Phone: Start: 04-16-2024 Dr. Gabo Hernandez MD -[facility] Work Phone: Start: 04-15-2024 Non-patient / Non-visit Dr. Minerva Hernandez MD -[facility] Work Phone: Start: 04-15-2024 Dr. Gabo Hernandez MD -[facility] Work Phone: Start: 04-14-2024 ambulatory Gabo Hernandez Facility:[facility] Start: 04-14-2024 End: 04-16-2024 Evaluation and management of inpatient Dr. Gabo Hernandez MD -[facility] Work Phone: Start: 04-14-2024 End: 04-16-2024 Dr. Gabo Hernandez MD -[facility] Work Phone: Start: 04-14-2024 Non-patient / Non-visit Dr. Minerva Hernandez MD -[facility] Work Phone: Start: 04-14-2024 Dr. Gabo Hernandez MD -[facility] Work Phone: Start: 04-14-2024 End: 04-14-2024 ambulatory Indu Pacheco Facility:[facility] Start: 04-14-2024 End: 04-14-2024 Non-patient / Non-visit Dr. Indu Pacheco MD -[facility] Work Phone: Start: 04-14-2024 End: 04-14-2024 Dr. Indu Pacheco MD -[facility] Work Phone: Start: 04-13-2024 Non-patient / Non-visit Dr. Minerva Hernandez MD -[facility] Work Phone: Start: 04-13-2024 Dr. Gabo Hernandez MD -[facility] Work Phone: Start: 04-12-2024 Non-patient / Non-visit Dr. Gaby Watkins MD -[facility] Work Phone: Start: 04-12-2024 Dr. Lesli mccoy MD -[facility] Work Phone: Start: 04-11-2024 ambulatory Lesli Watkins Facility:[facility] Start: 04-11-2024 Non-patient / Non-visit Dr. Gaby Watkins MD -[facility] Work Phone: Start: 04-11-2024 Dr. Lesli mccoy MD -[facility] Work Phone: Start: 03-30-2024 End: 03-31-2024 Dr. Floridalma Bingham DO -Emergency Department Work Phone: Start: 03-30-2024 End: 03-31-2024 Emergency department patient visit Dr. Floridalma Bingham DO -Emergency Department Work Phone: Start: 03-25-2024 End: 03-25-2024 ambulatory Michael Chi Sp Facility:[facility] Start: 03-25-2024 End: 03-25-[address] Michael Snowden MD -Physical Therapy Work Phone: Start: 03-25-2024 End: 03-25-2024 Dr. Michael Snowden MD -Physical Therapy Work Phone: Start: 02-25-2024 End: 02-25-2024 Emergency department patient visit Michael Chi Sp Facility:[facility] Start: 02-23-2024 End: 02-23-2024 ambulatory Michael Chi Sp Facility:[facility] Start: 01-08-2024 End: 01-08-2024 ambulatory Michael Chi Sp Facility:[facility] Start: 12-15-2023 End: 12-15-2023 ambulatory Michael Chi Sp Facility:[facility] Start: 11-13-2023 End: 11-13-2023 ambulatory Michael Chi Sp Facility:[facility] Start: 11-10-2023 End: 11-10-2023 ambulatory Michael Chi Sp Facility:[facility] Start: 10-29-2023 ambulatory Michael Chi Ps Facility:[facility] Start: 10-29-2023 End: 10-29-2023 ambulatory Michael Chi Sp Facility:[facility] Start: 10-08-2023 ambulatory Yasmin Pooled Facility:[facility] Start: 10-08-2023 End: 10-08-2023 ambulatory Michael Chi Sp Facility:[facility] Start: 09-30-2023 End: 09-30-2023 ambulatory Michael Chi Sp Facility:[facility] Start: 09-22-2023 End: 09-22-2023 ambulatory Gaetano Jaspalic Facility:[facility] Start: 06-20-[address] Michael guillen Work Phone: [facility]-Physical Therapy Work Phone: Start: 06-19-2023 Non-patient / Non-visit Dr. Augusto Snowden Work Phone: [facility] Start: 06-19-2023 End: 06-19-[address] Michael Snowden Work Phone: [facility] Work Phone: Start: 06-19-2023 End: 06-19-[address] Michael Snowden Work Phone: [facility]-Cardiovascular Services Work Phone: Start: 05-30-[address] Michael guillen Work Phone: [facility]-Physical Therapy Work Phone: Start: 05-28-2023 End: 05-28-[address] Michael Snowden Work Phone: [facility] Work Phone: Start: 05-28-2023 End: 05-28-[address] [facility] Start: 05-09-2023 End: 05-09-[address] Michael Snowden Work Phone: [facility] Work Phone: Start: 05-09-2023 End: 05-09-[address] Michael Snowden Work Phone: [facility] Work Phone: Start: 04-28-2023 End: 04-28-[address] Michael Snowden Work Phone: [facility] Work Phone: Start: 04-28-2023 End: 04-28-[address] Michael Snowden Work Phone: [facility]-Physical Therapy Work Phone: Start: 02-24-2023 End: 02-24-[address] Michael Snowden Work Phone: [facility] Work Phone: Start: 01-06-2023 End: 01-06-[address] Michael Snowden Work Phone: [facility] Work Phone: Start: 11-28-[address] [facility] guillen [facility]: Start: 11-27-2022 End: 11-27-[address] Michael Snowden Work Phone: [facility] Work Phone: Start: 11-27-2022 End: 11-27-[address] [facility] Snowden [facility] Start: 11-05-2022 End: 11-05-[address] Michael Snowden Work Phone: [facility] Work Phone: Start: 11-05-2022 End: 11-05-[address] Michael Snowden Work Phone: [facility]-Physical Therapy Work Phone: Start: 09-25-2022 End: 09-25-[address] Michael Snowden Work Phone: [facility] Work Phone: Start: 08-08-[address] Michael guillen Work Phone: [facility]-Physical Therapy Start: 08-05-2022 End: 08-05-[address] Michael Snowden Work Phone: [facility] Work Phone: Start: 08-05-2022 End: 08-05-[address] Michael Snowden Work Phone: [facility]-Laboratory, Specimen Start: 07-16-[address] Michael guillen Work Phone: [facility]-Physical Therapy Start: 07-16-2022 End: 07-16-[address] Michael Snowden Work Phone: [facility] Work Phone: Start: 07-16-2022 End: 07-16-[address] Michael Snowden Work Phone: [facility]-Ultrasound, [facility] Start: 06-10-[address] Michael guillen Work Phone: [facility]-Physical Therapy Start: 06-07-2022 End: 06-07-[address] Michael Snowden Work Phone: [facility] Work Phone: Start: 06-07-2022 End: 06-07-[address] Michael Snowden Work Phone: [facility] Start: 03-26-2022 End: 03-26-[address] Michael Snowden Work Phone: [facility] Work Phone: Start: 03-26-2022 End: 03-26-[address] [facility] Snowden [facility] Start: 02-15-[address] [facility] guillen [facility] Start: 01-07-[address] [facility] guillen [facility] Start: 01-04-2022 End: 01-04-[address] Michael Snowden Work Phone: [facility] Start: 12-24-2021 End: 12-24-[address] Michael Snowden Work Phone: [facility] Work Phone: Start: 12-24-2021 End: 12-24-[address] [facility] Snowden [facility] Start: 09-25-2021 End: 09-25-2021 Patient encounter procedure [facility] Office 3rd Flr Start: 09-24-2021 [facility] Start: 03-19-2006 End: 03-19-2006 Patient encounter procedure Noreen Fast DO Work Phone: [facility] Start: 02-26-2006 End: 02-27-2006 Patient encounter procedure Noreen Fast DO Work Phone: [facility] Start: 02-26-2006 End: 02-26-2006 Historical Summary Noreen Fast DO Work Phone: [facility] Procedures Date Procedure Procedure Detail Performing Clinician Start: 08-31-2024 Blood count smear rscp w/mnl difrntl wbc count Dr. Michael Snowden MD Work Phone: Start: 08-31-2024 Mean corpuscular hem oglobin concentration determination Dr. Michael Snowden MD Work Phone: Start: 08-31-2024 Nucleated red blood cell count procedure Dr. Michael Snowden MD Work Phone: Start: 08-31-2024 Platelet mean volume determination Dr. Michael Snowden MD Work Phone: Start: 08-24-2024 Blood count smear mc rscp w/mnl difrntl [...] 06-15-2024 Platelet mean volume determination Dr. Michael Snwoden MD Work Phone: Start: 06-08-2024 Blood count [...] months Cole Salazar Start: 12-17-2016 End: 12-17-2016 ROBERTR Bret Daniels MD Start: 06-11-2016 End: 06-11-2016 ZULEYKA Ernst PA-C Work Phone: Start: 06-11-2016 End: 06-11-2016 Follow Up Appt 6 months Ashley waterman PA-C Work Phone: Start: 06-11-2016 End: 06-11-2016 Follow Up BP Check Ashley Ernst PA-C Work Phone: Start: 06-13-2015 End: 06-06-2016 Follow Up Appt 1 year Bret Daniels MD Start: 06-13-2015 End: 06-06-2016 MMCole Daniels MD Start: 03-08-2015 End: 03-08-2015 TSA SCREENER Ashley Ernst PA-C Work Phone: Start: 03-08-2015 End: 03-08-2015 Follow Up Appt 3 months Ashley waterman PA-C Work Phone: Start: 08-05-2014 End: 08-06-2014 Documentation of current medications Bret Daniels MD Start: 08-05-2014 End: 08-05-2014 Follow Up Appt 6 months Cole Salazar Start: 08-05-2014 End: 08-05-2014 MMCole Daniels MD Start: 02-10-2014 End: 02-10-2014 TSA SCREENER Ashley Ernst PA-C Work Phone: Start: 02-10-2014 End: 02-10-2014 Follow Up Appt 6 months Ashley waterman PA-C Work Phone: Start: 08-13-2013 End: 08-13-2013 Follow Up Appt 6 months Cole Salazar Start: 08-13-2013 End: 08-13-2013 MMCole Daniels MD Start: 02-08-2013 End: 02-08-2013 TSA SCREENER Ashley Ernst PA-C Work Phone: Start: 02-08-2013 End: [...] DTaP,Tdap,Td Vaccine (3 - Td or Tdap) [facility] Start: 07-22-2027 Diabetes Screening Diabetes Screenin g [facility] Start: 07-21-2025 BP Controlled (<130/80) BP Con trolled (<130/80) [facility] Start: 11-29-2024 Influenza vaccination Influenz a Vaccine (Season Ended) [facility] Start: 10-20-2024 End: 10-20-2024 Patient encounter procedure 10/20/2024 12:40 PM EDT Office Visit Endocrinology [address] [place] [address] Kimmie Lindsey MD [address] [place] [address] 3 month follow up Endocrinology Comment on above: 3 month follow up Start: [facility]24 [facility] Start: 05-20-[facility]24 Development of care plan [facility] Start: 05-17-2024 Consultation for pain W [facility] Start: 05-13-2024 Developing a treatme nt plan [facility] Start: 05-13-2024 Development of care plan [facility] Start: 05-07-2024 [facility] Start: 04-17-2024 Developing a treatme nt plan [facility] Start: 04-17-2024 Development of care plan [facility] Start: 04-16-2024 Admission procedure [facility] Start: 04-16-2024 Introduction of urin mee catheter [facility] Start: 04-16-2024 Measuring intake and output [facility] Start: 04-16-2024 Patient referral to dietitian [facility] Start: 04-16-2024 Referral to occupati onal therapist [facility] Start: 04-16-2024 Referral to service [facility] Start: 04-16-2024 Vital signs measurements [facility] Start: 04-16-2024 [facility] Start: 04-16-2024 Following clinical pathway protocol [facility] Start: 04-16-2024 Patient discharge [facility] Start: 04-16-2024 [facility] Start: 04-14-2024 Admission procedure [facility] Start: 04-11-2024 Application of intermittent pneumatic compression device [facility] Start: 04-11-2024 Following clinical pathway protocol [facility] Start: 04-11-2024 Assessment of risk o f venous thromboembolism [facility] Start: 04-11-2024 Consultation for pain [facility] Start: 04-11-2024 Inhalation therapy procedure [facility] Start: 04-11-2024 Insertion of cathete r into peripheral vein [facility] Start: 04-11-2024 Providing care accor ding to standard [facility] Start: 04-11-2024 Provision of activit y privileges [facility] Start: 04-11-2024 Referral to occupati onal therapist [facility] Start: 04-11-2024 Referral to service [facility] Start: 04-11-2024 [facility] Start: 04-11-2024 Admission procedure [facility] Start: 03-31-2024 Advance Directive Discussion Advance Directive Discussion [facility] Start: 03-31-2024 [facility] Start: 11-30-2023 Covid-19 Vaccine ( season) Covid-19 Vaccine ( season) [facility] Start: 11-30-2023 Influenza vaccination Influenza Vacc ine (#1) [facility] Start: 08-05-2022 Protein measurement [facility] Start: 2020 RSV Vaccine (1 - 1-d ose 75+ series) RSV Vaccine (1 - 1-dose 75+ series) [facility] Start: 06-16-2017 End: 06-16-2017 Appointment Appointment [facility] Work Phone: Start: 12-17-2016 End: 12-17-2016 *BMP *BMP [facility] Work Phone: Start: 12-17-2016 End: 12-17-2016 Follow Up Appt 6 months Follow Up Appt 6 months [facility] Work Phone: Start: 12-17-2016 End: 12-17-2016 JHR JHR [facility] Work Phone: Start: 12-17-2016 End: 12-17-2016 Remote 30 day ecg rev/report 30 Day Holter Monitor [facility] Work Phone: Start: 06-11-2016 End: 06-11-2016 TSA SCREENER TSA SCREENER [facility] Work Phone: Start: 06-11-2016 End: 06-11-2016 Follow Up Appt 6 months Follow Up Appt 6 months [facility] Work Phone: Start: 06-11-2016 End: 06-11-2016 Follow Up BP Check Follow Up BP Check [facility] Work Phone: Start: 06-13-2015 End: 06-06-2016 Follow Up Appt 1 year Follow Up Appt 1 year [facility] Work Phone: Start: 06-13-2015 End: 06-06-2016 MMM MMM [facility] Work Phone: Start: 03-08-2015 End: 03-08-2015 TSA SCREENER ZULEYKA [facility] Work Phone: Start: 03-08-2015 End: 03-08-2015 Follow Up Appt 3 months Follow Up Appt 3 months [facility] Work Phone: Start: 08-05-2014 End: 08-05-2014 Follow Up Appt 6 months Follow Up Appt 6 months [facility] Work Phone: Start: 08-05-2014 End: 08-05-2014 MMM MMM [facility] Work Phone: Start: 02-10-2014 End: 02-10-2014 TSA SCREENER TSA SCREENER [facility] Work Phone: Start: 02-10-2014 End: 02-10-2014 Follow Up Appt 6 months Follow Up Appt 6 months [facility] Work Phone: Start: 08-13-2013 End: 08-13-2013 Follow Up Appt 6 months Follow Up Appt 6 months [facility] Work Phone: Start: 08-13-2013 End: 08-13-2013 MMM MMM [facility] Work Phone: Start: 02-08-2013 End: 02-08-2013 TSA SCREENER ZULEYKA [facility] Work Phone: Start: 02-08-2013 End: 02-08-2013 Follow Up Appt 6 months Follow Up Appt 6 months [facility] Work Phone: Start: 08-13-2012 End: 02-01-2013 Follow Up Appt 6 months Follow Up Appt 6 months [facility] Work Phone: Start: 08-13-2012 End: 02-01-2013 MMM MMM [facility] Work Phone: Start: 02-04-2012 End: 02-04-2012 Follow Up Appt 6 months Follow Up Appt 6 months [facility] Work Phone: Start: 04-25-2011 Shingrix Vaccine (2 of 3) Shingrix Vaccine (2 of 3) [facility] Start: 03-19-2006 Provider Instruction s for Treatment FOLLOW UP IN 4 MONTHS [facility] Work Phone: Start: 10-27-1963 Annual PCP Team [employer] apurva Disease Visit Annual PCP Team Chronic Disease Visit [facility] Start: 10-27-1963 Anxiety Screening Anxiety Screening [facility] Start: 10-27-1963 BP Controlled (<130/80) BP Con trolled (<130/80) [facility] Start: 10-27-1963 Depression Screening Depression Scre ening [facility] Start: 10-27-1963 zzBP Controlled (<130/80) (Retired) zzBP Controlled (<130/80) (Retired) [facility] CT Abdomen and Pelvi s W contrast IV [facility] Lactoferrin [Presenc e] in Stool by Immunoassay [facility] Patient Education [facility] Work Phone: Patient referral [facility] Work Phone: Protein measurement [facility] Immunizations Immunization Date Immunization Notes Care Provider Fa cility 02-25-2024 tetanus toxoid, redu lalo diphtheria toxoid, and acellular pertussis vaccine, adsorbed Dr. Michael Snowden MD Work Phone: [facility] 05-13-2017 influenza virus vacc ine, unspecified formulation Jovanni Matthew MD Work Phone: [facility] 03-17-2015 pneumococcal conjuga te vaccine, 13 valent [facility] 12-24-2014 influenza, high dose seasonal, preservative-free Jovanni Matthew MD Work Phone: [facility] 01-11-2013 influenza virus vacc ine, unspecified formulation Jovanni Matthew MD Work Phone: [facility] 02-28-2011 zoster vaccine, live Jovanni crump MD Work Phone: [facility] Work Phone: 02-19-2011 influenza virus vacc ine, unspecified formulation Jovanni Matthew MD Work Phone: [facility] 02-19-2011 pneumococcal polysaccharide vaccine, 23 [facility] 09-21-2007 tetanus toxoid, redu lalo diphtheria toxoid, and acellular pertussis vaccine, adsorbed Jovanni Matthew MD Work Phone: [facility] Payers Date Payer Category Payer Self-pay [id number] 2018 Medicare (Managed Care) [place] AMAYAANA MARIA [id number] 2013 Medicare [id number] Unknown [facility] [place] [facility] [place] Unknown [id number] .1.255095.3.579. 2.462 Unknown [id number] .1.151846.3.579. 2.462 Unknown [id number] .1.117817.3.579. 2.462 Unknown [id number] .1.692164.3.579. 2.462 Unknown [id number] .1.257799.3.579. 2.462 Unknown [id number] .1.769314.3.579. 2.462 Unknown [id number] .1.374272.3.579. 2.462 Unknown [id number] 2.16.840.1.652178.3.579. 2.462 Unknown [id number] 2.16.840.1.125749.3.579. 2.462 Unknown [id number] 2.16.840.1.798274.3.579. 2.462 Unknown [id number] 2.16.840.1.966988.3.579. 2.462 Unknown [id number] 2.16.840.1.968421.3.579. 2.462 Unknown [id number] 2.16.840.1.131408.3.579. 2.462 Unknown [id number] 2.16.840.1.643351.3.579. 2.462 Unknown [id number] 2.16.840.1.733623.3.579. 2.462 Unknown [id number] 2.16.840.1.377841.3.579. 2.462 Unknown [id number] 2.16.840.1.310025.3.579. 2.462 Unknown [id number] 2.16.840.1.791617.3.579. 2.462 Unknown [id number] 2.16.840.1.196670.3.579. 2.462 Unknown [id number] 2.16.840.1.291172.3.579. 2.462 Unknown [id number] 2.16.840.1.125206.3.579. 2.462 Unknown [id number] 2.16.840.1.828607.3.579. 2.462 Unknown [id number] 2.16.840.1.392014.3.579. 2.462 Unknown [id number] 2.16.840.1.035837.3.579. 2.462 Unknown [id number] 2.16.840.1.666229.3.579. 2.462 Unknown [id number] 2.16.840.1.709655.3.579. 2.462 Unknown [id number] 2.16840.1.367790.3.579. 2.462 Unknown [id number] 2.16840.1.420981.3.579. 2.462 Unknown [id number] 2.16840.1.391350.3.579. 2.462 Unknown [id number] 2.840.1.422991.3.579. 2.462 Unknown [id number] 2.840.1.789028.3.579. 2.462 Unknown [id number] 2.840.1.565762.3.579. 2.462 Unknown [id number] 2.840.1.983219.3.579. 2.462 Unknown [id number] 2.840.1.424479.3.579. 2.462 Unknown [id number] 2.840.1.239989.3.579. 2.462 Unknown [id number] 2.840.1.274032.3.579. 2.462 Unknown [id number] 2.840.1.504691.3.579. 2.462 Unknown [id number] 2.840.1.563146.3.579. 2.462 Unknown [id number] 2.840.1.288086.3.579. 2.462 Unknown [id number] 2.840.1.854375.3.579. 2.462 Unknown [id number] 2.840.1.997730.3.579. 2.462 Unknown [id number] 2.840.1.070919.3.579. 2.462 Unknown [id number] 2.840.1.822590.3.579. 2.462 Unknown [id number] 2.840.1.559278.3.579. 2.462 Social History Date Type Detail Facility Start: 04-10-2021 End: 05-09-2023 Tobacco smoking status NHIS Unknown if ever smoked [facility] Start: 09-21-2020 None [facility] Start: 09-21-2020 Homeless [facility] Start: 09-21-2020 Non-smoker [facility] Start: 1945 Sex Assigned At Female W [facility] Start: 07-21-2024 End: 08-13-2024 Alcohol Use Alcohol Use [facility] Work Phone: Comment on above: Occasional alcohol u se tea once iin awhile Start: 04-16-2024 End: 07-21-2024 Tobacco smoking status NHIS Never smoked tobacco (finding) [facility] Start: 07-01-2024 End: 07-15-2024 Sex Female (finding) [facility] Start: 07-21-2024 Tobacco use and exposure Smokeless tobacco non-user [facility] Start: 07-21-2024 End: 08-13-2024 Alcoholic beverage intake Current drinker of alcohol (finding) [facility] Start: 07-21-2024 End: 08-13-2024 Tobacco use panel [facility] National Score (1-100), lower number is lower risk 75 [facility] Start: 07-21-2024 Tobacco Comment Mother smoked in childhood home. ETS exposure in a restaurant. [facility] Start: 02-19-2012 Alcohol Comment holidays [facility] Start: 1945 Sex assigned at Not on file [facility] NEGATED: Highlighted row Not [facility] Goals Date Patient Goal Desired Activity /State Functional Status Date Assessment Result Facility 05-21-2024 Functional status Ambulates [facility] Work Phone: 04-16-2024 Functional status Ambulates [facility] Work Phone: 11-03-2014 Are you deaf, or do you have serious difficulty hearing No 11/03/2014 11:42 AM Dalila Nielsen RN No [facility] 11-03-2014 Are you blind, or do you have serious difficulty seeing, even when wearing glasses No 11/03/2014 11:42 AM Dalila Nielsen RN No [facility] 11-03-2014 Do you have serious difficulty walking or climbing stairs Yes 11/03/2014 11:42 AM Dalila Nielsen RN Yes [facility] 11-03-2014 Do you have difficul ty dressing or bathing No 11/03/2014 11:42 AM Dalila Nielsen RN No [facility] 11-03-2014 Because of a physica l, mental, or emotional condition, do you have difficulty doing errands alone such as visiting a physician's office or shopping Yes 11/03/2014 11:42 AM Dalila Nielsen RN Yes [facility] Mental Status Date Assessment Result Facility 05-21-2024 Cognitive function Voice/Name [facility] Work Phone: 05-17-2024 Cognitive function [facility]ropri[facility]: 04-16-2024 Cognitive function Voice/Name [facility] Work Phone: 11-03-2014 Because of a physica l, mental, or emotional condition, do you have serious difficulty concentrating, remembering, or making decisions Yes 11/03/2014 11:42 AM Dalila Nielsen RN Yes [facility] Clinical Notes 06-14-2022 to 08-22-2024 Telephone Encounter [...] your request via staff message to the [facility] Auth Appeals Pool ([id number]). You can find templates listed below to support your appeal in apstrata (apstrata drop down, select patient care, select send letter). If it is an urgent request, you can email the [place] Prior auth Team at [email or web address]. Please make sure the documents below are completed in order to process your request. If the appeal is denied, do you want to schedule a peer to peer Yes/No. We will schedule peer to peer automatically if yes. Thank You, [facility] Auth Appeals Team Endo PA Appeal letter Endo PA Letter of Medical Necessity [facility] Prior Sql Data Analyst III Endocrinology & Metabolism [place] Letter scanned into chart [facility] 08-22-2024 Miscellaneous Notes Images from the original [...] your request via staff message to the [place] Appeals Pool ([id number]). You can find templates listed below to support your appeal in apstrata (apstrata drop down, select patient care, select send letter). If it is an urgent request, you can email the [place] Prior auth Team at [email or web address]. Please make sure the documents below are completed in order to process your request. If the appeal is denied, do you want to schedule a peer to peer Yes/No. We will schedule peer to peer automatically if yes. Thank You, [facility] Auth Appeals Team Endo PA Appeal letter Endo PA Letter of Medical Necessity [facility] Prior Sql Data Analyst III Endocrinology & Metabolism [place] Letter scanned into chart documented in this encounter [facility] 08-13-2024 Note HNO ID: [id number] Author: SETH CHOWDARY MD Service: ? Author Type: Physician Type: Progress Notes Filed: 08/13/2024 08:45 Note Text: SPINE SURGERY OUTPATIENT CONSULT This is an in-person visit. SERVICE DATE: 08/13/2024 PCP: Michael Snowden MD REFERRING PROVIDER: Jovanni Matthew [address] [facility] [id number] Lizette Davies is a 78 year old [...] walked recently and currently resides in a half-way facility. She does not report bowel or [...] (degenerative disc disease), cervical MRI scanned into [facility] January 11, 2014 ([facility]) DDD (degenerative disc disease), lumbosacral Essential hypertension, benign Dr. Daniels Gastroparesis Mild to moderate--test done 09/2014 Generalized OA Heart attack (HCC) Hemorrhage of gastrointestinal tract 01/2015 EGD "huge ulcer" 01/2015 all cleared 03/2015, Edis Angeles MD [...] 12/31/13 EGD ESOPHAGOGASTRODUODENOSCOPY TRANSORAL DIAGNOSTIC 02/16/15 EGD [facility] inpt ESOPHAGOGASTRODUODENOSCOPY TRANSORAL DIAGNOSTIC 05/11/15 EGD EXTRACTION, ERUPTED TOOTH OR EXPOSED ROOT (ELEVATION AND/OR FORCEPS REMOVAL) Jerome teeth FOOT RIGHT OP SURGERY 01/2009 PAST SURGICAL HISTORY OF 1996 Bone fusion 1st MT and pin right foot PAST S (more content not included)... [facility] 08-13-2024 History of Presen t illness Narrative SPINE SURGERY OUTPATIENT CONSULT This is an in-person visit. SERVICE DATE: 08/13/2024 PCP: Michael Snowden MD REFERRING PROVIDER: Jovanni Matthew [address] [facility] [id number] Lizette Davies is a 78 year old [...] walked recently and currently resides in a half-way facility. She does not report bowel or [...] (degenerative disc disease), cervical MRI scanned into [facility] January 11, 2014 ([facility]) DDD (degenerative disc disease), lumbosacral Essential hypertension, benign Dr. Daniels Gastroparesis Mild to moderate--test done 09/2014 Generalized OA Heart attack (HCC) Hemorrhage of gastrointestinal tract 01/2015 EGD "huge ulcer" 01/2015 all cleared 03/2015, Edis Angeles MD [...] 12/31/13 EGD ESOPHAGOGASTRODUODENOSCOPY TRANSORAL DIAGNOSTIC 02/16/15 EGD [facility] inpt ESOPHAGOGASTRODUODENOSCOPY TRANSORAL DIAGNOSTIC 05/11/15 EGD EXTRACTION, ERUPTED TOOTH OR EXPOSED ROOT (ELEVATION AND/OR FORCEPS REMOVAL) s Jerome teeth FOOT RIGHT OP SURGERY 01/2009 PAST [...] needed for nausea/vomiting. 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 Dx: Bilat sprained ankles, gait [...] not taking: Reported on 07/21/2024) COMPOUNDED PRESCRIPTION Charlesessie Shoka.me defense 17 drops daily and working up [...] 98 Resp 18 Ht 147.3 cm (4' 10") Wt 68 kg (149 lb 14.6 oz) [...] SIGNATURE: Seth Chowdary MD PATIENT NAME: Lizette Williamson Keke DATE: August 13, 2024 TIME: 7:55 AM PAGER: documented in this encounter [facility] 07-21-2024 Note HNO ID: [id number] Author: MILLIE PETTY MD Service: ? Author [...] taking: Reported on 07/21/2024) COMPOUNDED PRESCRIPTION Viki Shoka.me defense 17 drops daily and working up to 60 drops daily (in divided doses). Serving size 30 drops. 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 Dx: Bilat sprained ankles, gait [...] type O+ Compression fracture of thoracic vertebra ([facility]) DDD (degenerative disc disease), cervical MRI scanned into [facility] January 11, 2014 ([facility]) DDD (degenerative disc disease), lumbosacral Essential hypertension, benign Dr. Daniels Gastroparesis Mild to moderate--test done 09/2014 Generalized OA Heart attack (HCC) Hemorrhage of gastrointestinal tract 01/2015 EGD "huge ulcer" 01/2015 all cleared 03/2015, Edis Angeles MD [...] PFRMD 11/24/2000 Co (more content not included)... [facility] 07-21-2024 Instructions Jovanni Matthew MD - 07/21/2024 1:43 PM EDT Bring records including bone density testing to appointments with metabolic bone and spine surgeon Pain medication per pain management documented in this encounter [facility] 07-21-2024 Note HNO ID: [id number] Author: MILLY SINGH RN Service: ? Author [...] were reviewed: CD, reports Milly Singh RN [facility] 07-21-2024 History of Presen t illness Narrative [...] transitional care- ECF - PT stopped at [facility]. Can walk some with walker- about [...] (degenerative disc disease), cervical MRI scanned into [facility] January 11, 2014 ([facility]) DDD (degenerative disc disease), lumbosacral Essential hypertension, benign Dr. Daniels Gastroparesis Mild to moderate--test done 09/2014 Generalized OA Heart attack (HCC) Hemorrhage of gastrointestinal tract 01/2015 EGD "huge ulcer" 01/2015 all cleared 03/2015, Edis Angeles MD [...] 12/31/13 EGD ESOPHAGOGASTRODUODENOSCOPY TRANSORAL DIAGNOSTIC 02/16/15 EGD [facility] inpt ESOPHAGOGASTRODUODENOSCOPY TRANSORAL DIAGNOSTIC 05/11/15 EGD EXTRACTION, ERUPTED TOOTH OR EXPOSED ROOT (ELEVATION AND/OR FORCEPS REMOVAL) Jerome teeth FOOT RIGHT OP SURGERY 01/2009 PAST [...] Units by mouth once daily. COMPOUNDED PRESCRIPTION Charlesnia microbial defense 17 drops daily and working up to 60 drops daily (in divided doses). Serving size 30 drops. 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 Dx: Bilat sprained ankles, gait [...] Adult) Pulse 98 Ht 147.3 cm (4' 10") Wt 68 kg (150 lb) SpO2 96% [...] cervical and LS ddd, HTN, gastroparesis, h/o NH, h/o GIB, sarcoidosis, leg SCC, with h/o [...] which included preparing to see the patient, [id number] patient care, completing clinical documentation, obtaining and/or reviewing separately obtained history, performing a medically appropriate examination, counseling and educating the patient/family/caregiver, ordering medications, tests, or procedures, and communicating with other HCPs (not separately reported). documented in this encounter [facility] 07-21-2024 Note HNO ID: [id number] Author: JOVANNI MATTHEW MD Service: ? Author Type: Physician Type: Progress Notes Filed: 07/21/2024 14:05 Note Text: Physical Medicine and Rehabilitation New patient July 21, 2024 SUBJECTIVE HISTORY OF PRESENT ILLNESS: Lizette Davies is a 78 year old woman evaluated for back pain and concerns if needs for spine fusion/decompression Chronic back pain but right before Omar fell with worsening LBP. With eventual went [...] transitional care- ECF - PT stopped at [facility]. Can walk some with walker- about [...] (degenerative disc disease), cervical MRI scanned into [facility] January 11, 2014 ([facility]) DDD (degenerative disc disease), lumbosacral Essential hypertension, benign Dr. Daniels Gastroparesis Mild to moderate--test done 09/2014 Generalized OA Heart attack (HCC) Hemorrhage of gastrointestinal tract 01/2015 EGD "huge ulcer" 01/2015 all cleared 03/2015, Edis Angeles MD [...] 12/31/13 EGD ESOPHAGOGASTRODUODENOSCOPY TRANSORAL DIAGNOSTIC 02/16/15 EGD [facility] inpt ESOPHAGOGASTRODUODENOSCOPY TRANSORAL DIAGNOSTIC 05/11/15 EGD EXTRACTION, ERUPTED TOOTH OR EXPOSED ROOT (ELEVATION AND/OR FORCEPS REMOVAL) 1969's Jerome teeth FOOT RIGHT OP SURGERY 01/2009 PAST SURGICAL HISTORY OF 1996 Bone fusion 1st MT and pin right foot PAST SURGICAL HISTORY OF 01/2013 left carpal tunnel surgery PAST SURGICAL HISTORY OF right Lasik 2001 PAST SURGICAL HISTORY OF 09/13 Skin (more content not included)... [facility] 05-19-2024 Note [facility] 05-18-2024 Note [facility] 04-16-2024 Evaluation note Diagnosis Onset Date [...] 16, 2024 3:42pm Vitamin D deficiency acute [email or web address] 3:42pm Sarcoidosis chronic April 16, 2024 3:42pm Intractable low back pain resolved April 16 3:42pm [facility] Work Phone: 1(584) 681-183001-17-2025 [facility]01-17-2025 [facility]01-15-2025 Evaluation note* Diagnosis Onset Date Resolution Status Admit Date Age-related osteoporosis wit h current pathol fracture of vertebra acute April 14 3:42pm Compression fracture of L1 vertebra acute April 14 3:42pm Radiculopathy of lumbar region acute April 14, 2024 3:42pm Unable to ambulate acute Maruar y 2024 3:42pm Chronic back pain chronic April [...] 16 3:42pm Vitamin D deficiency acute Ralph mee 2024 3:42pm Sarcoidosis chronic April 16, 2024 3:42pm Intractable low back pain resolved April 16, 2024 3:42pm [facility] Work Phone: 1(537) 746-999801-15-2025 [facility]01-14-2025 [facility]02-02-2024 Discharge summary Author Geo Phillip [facility] May 02, 2023 3:54pm Note Date/Time May 02, 2023 3 :54pm [facility] Physical Therapy [facility] [address] [place] [address] / REHABILITATION SERVICES DISCHARGE SUMMARY MR#: [id number] Acct: [id number] Name: LIZETTE DAVIES Rep #: [id number] : 1945 77 From: Geo Phillip PT, [...] 2:: Pt will be able to ambulate 600" with LRD and no rest break to [...] please feel free to call me at [phone]. Thank you for the referral of thispatient. Sincerely, Geo Phillip, PT, ATC Balance/Gait/Functional tests Balance/Special Test Scores Lower Extremity Functional Score: 19 Improvement % Improvement: 60 <Electronically signed by Geo Phillip PT, ATC> 05/02/23 [id number] CC: Dr. Michael Snowden MD ~ [facility] Signed [facility] Work Phone: 1(489) 619-296003-17-2023 Discharge summary Author Geo Phillip [facility] June 14, 2022 3:55pm Note Date/Time June 14, 2022 3:4 9pm [facility] Physical Therapy [facility] [address] [place] [address] [address] [place] [address] / REHABILITATION SERVICES DISCHARGE SUMMARY MR#: [id number] Acct: [id number] Name: LIZETTE DAVIES Rep #: [id number] : 1945 76 From: Geo Phillip PT, ATC Referring Dr.: Dr. Michael Snowden MD Status: REG RCR Insurance: [employer] MED[employer]ARE PPO SELF PAY INSURANCE ADDENDUM by PT VERONICA Phillip on 06/14/22 at 1555 This discharge [...] please feel free to call me at [phone]. Thank you for the referral of thispatient. Sincerely, Geo Phillip, PT, ATC Balance/Gait/Functional tests - Balance/Special Test Scores Lower Extremity Functional Score: 12 <Electronically signed by Geo Phillip PT, ATC> 06/14/22 1549 CC: Dr. Michael Snowden MD ~ [facility] Signed [facility] Work Phone: Evaluation noteNo assessment information available [facility] Work Phone: Evaluation note* Diagnosis Onset Date Resolution Status Essential (primary) hypertension chronic Nonrheumatic aortic (valve) stenosis chronic Supraventricular tachycardia chronic [facility] Work Phone: Evaluation note* Diagnosis Onset Date Resolution Status Abdominal pain acute Diarrhea chronic [facility] Work Phone: Evaluation note* Diagnosis Onset Date Resolution Status Cellulitis acute Gastroparesis acute Diarrhea [facility] Work Phone: Evaluation note* Diagnosis Onset Date Resolution Status Essential (primary) hypertension chronic Nonrheumatic aortic (valve) stenosis chronic Supraventricular tachycardia chronic Cellulitis acute Gastroparesis acute Diarrhea chronic [facility] Work Phone: Evaluation note* Diagnosis Onset Date Resolution Status Cellulitis acute Gastroparesis acute Diarrhea chronic Essential (primary) hypertension chronic Nonrheumatic aortic (valve) stenosis chronic Supraventricular tachycardia chronic [facility] Work Phone: Evaluation note* Diagnosis Osteopenia, unspecified location- Primary History of vertebral compression fracture Spondylolisthesis, grade 3 Acquired spondylolisthesis [facility] Diagnosis Acquired spondylolisthesis- Primary Cervical spondylosis without myelopathy Neural foraminal stenosis of lumbar spine Spinal stenosis, lumbar region, without neurogenic claudication Closed compression fracture of body of L1 vertebra (HCC) [facility] Diagnosis Age-related osteoporosis with current pathological fracture, initial encounter- Primary documented in this encounter [facility] Chief Complaint and Reason for Visit Chief [...] 3 M FU Pain in left knee [id number] Reason for Visit Cellulitis Gastroparesis Diarrhea Essential (primary) hypertension Nonrheumatic aortic (valve) stenosis Supraventricular tachycardia Chief Complaint BALANCE RX HERE 3 M FU Pain in left knee MURMUR, SVT [id number] Reason for Visit Essential (primary) hypertension Nonrheumatic aortic (valve) stenosis Supraventricular tachycardia Chief Complaint Admit Date LEG WEAKNESS/PAIN. RX HERE February 3:00pm BACK PAIN March 30, 2024 7:15pm LUMBAR COMPRESSION FRACTURE W/PAIN Yani ry 2024 1:26pm LUMBAR COMPRESSION FRACTURE W/PAIN Yani ry 2024 4:22pm LUMBAR COMPRESSION FRACTURE W/PAIN Yani ry 2024 10:49am PREOP April 14, 2024 4 :50am LUMBAR COMPRESSION FRACTURE W/PAIN Yani ry 2024 11:43am LUMBAR COMPRESSION FRACTURE W/PAIN Yani ry 2024 3:42pm LUMBAR COMPRESSION FRACTURE W/PAIN Meleua ry 2024 10:46am LUMBAR COMPRESSION FRACTURE W/PAIN Meleua ry 2024 9:51am LUMBAR COMPRESSION FRACTURE W PAIN Yain ry 2024 3:42pm ADMISSION EXAM May 21, 2024 10:56am ADMISSION EXAM May 25, 2024 1:55pm PRISON LAB WORK June 01, 2024 4: 00am PRISON LAB WORK June 08, 2024 4 :00am Reason for Visit Admit Date Age-related osteoporosis wit h current pathol fracture of vertebra April 14, 2024 3:42pm Compression fracture of L1 vertebra Ralph mee 2024 3:42pm Radiculopathy of lumbar region March [id number] 3:42pm Unable to ambulate April 14, 2024 3 :42pm Chronic back pain April 14, 2024 3 :42pm Compression fracture of L1 vertebra Ralph mee 2024 3:42pm Debility April 16, 2024 3 :42pm Essential (primary) hypertension April 16, 2024 3:42pm Hypomagnesemia April 16, 2024 3 :42pm Neuropathic pain, leg, bilateral April 16, 2024 3:42pm Postmenopausal bleeding April 16 3:42pm Radiculopathy of lumbar region March [id number] 3:42pm Radiculopathy of lumbosacral region Ralph mee 2024 3:42pm Vitamin D deficiency April 16, 2024 3:42pm Sarcoidosis April 16, 2024 3 :42pm Intractable low back pain April 16, 2024 3:42pm Chief Complaint Admit Date LEG WEAKNESS/PAIN. RX HERE February 3:00pm BACK PAIN March 30, 2024 7:15pm LUMBAR COMPRESSION FRACTURE W/PAIN Janua ry 2024 1:26pm LUMBAR COMPRESSION FRACTURE W/PAIN Janua ry 2024 4:22pm LUMBAR COMPRESSION FRACTURE W/PAIN Janua ry 2024 10:49am PREOP April 14, 2024 4 :50am LUMBAR COMPRESSION FRACTURE W/PAIN Meleua ry 2024 11:43am LUMBAR COMPRESSION FRACTURE W/PAIN Janua ry 2024 3:42pm LUMBAR COMPRESSION FRACTURE W/PAIN Janua ry 2024 10:46am LUMBAR COMPRESSION FRACTURE W/PAIN Janua ry 2024 9:51am LUMBAR COMPRESSION FRACTURE W PAIN Meleua ry 2024 3:42pm ADMISSION EXAM May 21, 2024 10:56am ADMISSION EXAM May 25, 2024 1:55pm PRISON LAB WORK June 01, 2024 4: 00am PRISON LAB WORK June 08, 2024 4 :00am PRISON LAB WORK June 15, 2024 5 :00am Chief Complaint Admit Date LEG WEAKNESS/PAIN. RX HERE February 3:00pm BACK PAIN March 30, 2024 7:15pm LUMBAR COMPRESSION FRACTURE W/PAIN Meleua ry 2024 1:26pm LUMBAR COMPRESSION FRACTURE W/PAIN Meleua ry 2024 4:22pm LUMBAR COMPRESSION FRACTURE W/PAIN Meleua ry 2024 10:49am PREOP April 14, 2024 4 :50am LUMBAR COMPRESSION FRACTURE W/PAIN Meleua ry 2024 11:43am LUMBAR COMPRESSION FRACTURE W/PAIN Meleua ry 2024 3:42pm LUMBAR COMPRESSION FRACTURE W/PAIN Meleua ry 2024 10:46am LUMBAR COMPRESSION FRACTURE W/PAIN Mleeua ry 2024 9:51am LUMBAR COMPRESSION FRACTURE W PAIN Meleua ry 2024 3:42pm ADMISSION EXAM May 21, 2024 10:56am ADMISSION EXAM May 25, 2024 1:55pm PRISON LAB WORK June 01, 2024 4: 00am PRISON LAB WORK June 08, 2024 4 :00am PRISON LAB WORK June 15, 2024 5 :00am PRISON LAB WORK June 22, 2024 5 :00am Chief Complaint Admit Date LUMBAR COMPRESSION FRACTURE W/PAIN Janua ry 2024 1:26pm LUMBAR COMPRESSION FRACTURE W/PAIN Meleua ry 2024 4:22pm LUMBAR COMPRESSION FRACTURE W/PAIN [...] 10:56am ADMISSION EXAM May 25, 2024 1:55pm PRISON LAB WORK June 01, 2024 4: 00am PRISON LAB WORK June 08, 2024 4 :00am PRISON LAB WORK June 15, 2024 5 :00am PRISON LAB WORK June 22, 2024 5 :00am NEW CONCERN June 23, 2024 4:5 8pm PRISON LAB WORK June 29, 2024 5: 00am PRISON LAB WORK July 06, 2024 5: 00am PRISON LAB WORK July 13, 2024 5 :00am Chief Complaint Admit Date LUMBAR COMPRESSION FRACTURE W PAIN Yani ry 2024 3:42pm ADMISSION EXAM May 21, 2024 10:56am ADMISSION EXAM May 25, 2024 1:55pm PRISON LAB WORK June 01, 2024 4: 00am PRISON LAB WORK June 08, 2024 4 :00am PRISON LAB WORK June 15, 2024 5 :00am PRISON LAB WORK June 22, 2024 5 :00am NEW CONCERN June 23, 2024 4:5 8pm PRISON LAB WORK June 29, 2024 5: 00am PRISON LAB WORK July 06, 2024 5: 00am PRISON LAB WORK July 13, 2024 5 :00am PRISON LAB WORK July 20, 2024 4 :00am PRISON LAB WORK July 27, 2024 5 :00am [...] Date LUMBAR COMPRESSION FRACTURE W PAIN Yani ry 2024 3:42pm ADMISSION EXAM May 21, 2024 10:56am ADMISSION EXAM May 25, 2024 1:55pm PRISON LAB WORK June 01, 2024 4: 00am PRISON LAB WORK June 08, 2024 4 :00am PRISON LAB WORK June 15, 2024 5 :00am PRISON LAB WORK June 22, 2024 5 :00am NEW CONCERN June 23, 2024 4:5 8pm PRISON LAB WORK June 29, 2024 5: 00am PRISON LAB WORK July 06, 2024 5: 00am PRISON LAB WORK July 13, 2024 5 :00am PRISON LAB WORK July 20, 2024 4 :00am PRISON LAB WORK July 27, 2024 5 :00am LABWORK August 10, 2024 5:00a m Chief Complaint Admit Date LUMBAR COMPRESSION FRACTURE W PAIN Yani ry 2024 3:42pm ADMISSION EXAM May 21, 2024 10:56am ADMISSION EXAM May 25, 2024 1:55pm PRISON LAB WORK June 01, 2024 4: 00am PRISON LAB WORK June 08, 2024 4 :00am PRISON LAB WORK June 15, 2024 5 :00am PRISON LAB WORK June 22, 2024 5 :00am NEW CONCERN June 23, 2024 4:5 8pm PRISON LAB WORK June 29, 2024 5: 00am PRISON LAB WORK July 06, 2024 5: 00am PRISON LAB WORK July 13, 2024 5 :00am PRISON LAB WORK July 20, 2024 4 :00am PRISON LAB WORK July 27, 2024 5 :00am PRISON LAB WORK August 03, 2024 5:00 am LABWORK August 10, 2024 5:00a m PRISON LAB WORK August 17, 2024 5:0 0am Family History No Family History Records Found [...] Will Yes April 10 5:15pm Power of Machine Skiver Yes April 10, 2021 5:15pm Advance Directive Response Recorded Date/ Time Advance Directives Yes January 1:49am Living Will Yes April 10 4:15pm Power of Machine Skiver Yes April 10, 2021 4:15pm Advance Directive Response Recorded Date/ Time Living Will No March 30 9:41pm Do you have a Healthcare Power of Machine Skiver? No March 30, 2024 9:41pm Living Will Yes April 10 5:15pm Do you have a Healthcare Power of Machine Skiver? Yes April 10, 2021 5:15pm Living Will No April 11 3:41pm Do you have a Healthcare Power of Machine Skiver? No April 11, 2024 3:41pm Living Will No April 19 5:36pm Do you have a Healthcare Power of Machine Skiver? No April 19, 2024 5:36pm Advance Directives Yes January 2:49am Advance Directive Response Recorded Date/ Time Living Will No April 11 3:41pm Do you have a Healthcare Power of Machine Skiver? No April 11, 2024 3:41pm Living Will No April 19 5:36pm Do you have a Healthcare Power of Machine Skiver? No April 19, 2024 5:36pm Advance Directives Yes January 2:49am Advance Directive Response Recorded Date/ Time Living Will No April 19 5:36pm Do you have a Healthcare Power of Machine Skiver? No April 19, 2024 5:36pm Advance Directives [...] Primary Care Provider, Referring Provider Active Ashley GRIFFIN, PA Attending Provider Active Team Status: Inactive [...] Snowden MD Primary Care Provider Active Ashley GRIFFIN, PA Attending Provider, Referr ing Provider Active [...] Provider Active Start: April 13, 2024 Dr. Gbao Hernandez MD Other Provider Active Start: April [...] 2024 End: May 21, 2024 Audra Drake DIMPLING MACHINE OPERATOR, DIMPLING MACHINE OPERATOR-C Attending Provider Active Start: May 21, 2024 [...] Active Member Role Status Dates Dr. Michael nSowden MD Primary Care Provider Active Start: June 15, 2024 Nikia JAVIER MD Attending Provider Active Start: June 15, 2024 Team Status: Active Member Role Status Dates Dr. Michael Snowden MD Primary Care Provider Active Start: June 22, 2024 Audra JAVIER DIMPLING MACHINE OPERATOR-C Attending Provider Active Start: June 22, 2024 Team Status: Active Member Role Status Dates Dr. Michael Snowden MD Primary Care Provider Active Start: June 29, 2024 Audra JAVIER NP-C Attending [...] Attending Provider Active Start: July 13, 2024 Buckle Assembler Relationship Specialty Start Date End Date Michael Snowden Chi PCP - General Gerontology 09/05/17 Team Status: Inactive Member Role Status Dates Dr. Michael Snowden MD Primary Care Provider Active Start: June 23, 2024 End: June 23, 2024 DIEUDONNE Lomas NPC Attending Provider Active Start: June 23, 2024 End: June 23, 2024 Team Status: Inactive Member Role Status Dates Dr. Michael Snowden MD Primary Care Provider Active Start: June 29, 2024 End: June 29, 2024 MAR Noe Attending Provider [...] Attending Provider Active Start: August 03, 2024 Buckle Assembler Relationship Specialty Start Date End Date Michael Snowden Chi PCP - General Gerontology 09/05/17 Buckle Assembler Relationship Specialty Start Date End Date Michael Snowden Chi PCP - General Gerontology 09/05/17 [employer]er Relationship Specialty Start Date End Date Michael [...] August 10, 2024 End: August 10, 2024 Team Status: Inactive Member Role Status Dates Dr. Michael Snowden MD Primary Care Provider Active Start: August 03, 2024 End: August 03, 2024 MAR Noe Attending Provider Active Start: August 03, 2024 End: August 03, 2024 Team Status: Inactive Member Role Status Dates Dr. Michael Snowden MD Primary Care Provider Active Start: August 17, 2024 End: August 17, 2024 Nikia JAVIER MD Attending Provider Active Start: August 17, 2024 End: August 17, 2024 Team Status: Active Member Role Status Dates Dr. Michael Snowden MD Primary Care Provider Active Start: August 31, 2024 MAR Noe Attending Provider Active Start: August 31, 2024 Source Comments (unrecognize d section and content) In the event this informatio n is protected by the Federal Confidentiality of Alcohol and Drug Abuse Patient Records regulations: The Federal rules restrict any use of the information to criminally investigate or prosecute any alcohol or drug abuse patient.[facility] the event this information is protected by the Federal Confidentiality of Alcohol and Drug Abuse Patient Records regulations: The Federal rules restrict any use of the information to criminally investigate or prosecute any alcohol or drug abuse patient.[facility] the event this information is protected by the Federal Confidentiality of Alcohol and Drug Abuse Patient Records regulations: The Federal rules restrict any use of the information to criminally investigate or prosecute any alcohol or drug abuse patient.[facility] the event this information is protected by the Federal Confidentiality of Alcohol and Drug Abuse Patient Records regulations: The Federal rules restrict any use of the information to criminally investigate or prosecute any alcohol or drug abuse patient.[facility] the event this information is protected by the Federal Confidentiality of Alcohol and Drug Abuse Patient Records regulations: The Federal rules restrict any use of the information to criminally investigate or prosecute any alcohol or drug abuse patient.[facility] the event this information is protected by the Federal Confidentiality of Alcohol and Drug Abuse Patient Records regulations: The Federal rules restrict any use of the information to criminally investigate or prosecute any alcohol or drug abuse patient.[facility] Reason for Visit (unrecogniz ed section and content) Reason Comments New Patient Reason Comments Established Patient Reason Comments Medication Preauthorization Evenity 210m g- Denied INFORMATION SOURCE (unrecogn ized section and content) DATE CREATED AUTHOR 09/09/2024 [facility] DATE CREATED AUTHOR AUTHOR'S ORGANIZ ATION 09/16/2024 [facility] FOR RECORDS PERTAINING TO PATIENTS WHO [...] BE BASED ON THE PRIMARY CLINICAL RECORDS. [employer] [facility]. provides no warranty or guarantee of the accuracy or completeness of information in this document.
[2024-09-21 08:07] LABS: Absolute Neutrophil Count 3.1 X10^3/uL (2.0-7.7); Basophil# 0.04 X10^3/uL; Basophil% 0.8 % (0-1); Eosinophil# 0.17 X10^3/uL; Eosinophils% 3.2 % (0-5); Hematocrit 35.6 % (37-47); Hemoglobin 11.5 g/dL (12.0-15.0); Lymphocyte % 28.4 % (19-41); Mean Corp Hgb Conc 32.3 g/dL (32-36); Mean Platelet Vol. 9.9 fl (6.2-12.0); Monocyte# 0.48 X10^3/uL; Monocyte% 9.1 % (0-10); NRBC Flagged by Analyzer 0 % (0-5); Neutrophil # 3.08 X10^3/uL (2.7-7.7); Neutrophil % 58.1 % (47-70); Platelet Count 233 K/mm3 (150-450); RBC Distribution Width CV 12.8 % (11.6-14.6); RBC Distribution Width SD 47.9 fl (35.1-43.9); Red Blood Count 3.49 M/mm3 (4.2-5.4); White Blood Count 5.3 K/mm3 (4.4-11.0)
[2024-09-21 08:18] LABS: Anion Gap 9 (5-15); BUN 12 mg/dL (4-19); BUN/Creat Ratio 19.5 RATIO (10-20); Calcium,Total 9.2 mg/dL (7.6-11.0); Chloride 106 mmol/L (98-108); Creatinine, Serum 0.62 mg/dL (0.70-1.20); EST Glomerular Filtration Rate 91 (>60); Glucose 87 mg/dL (70-99); Potassium 3.9 mmol/L (3.3-5.1); Sodium Level 142 mmol/L (133-145)
== END ==
LOC: OLS.WHLTCC 05:00
PROVIDERS: PCP Family Medicine Geriatric Medicine; Visit Provider Internal Medicine
DX: I10 Essential (primary) hypertension (principal)
CPT/HCPCS: 36415; 80048; 85025

== ENCOUNTER → 2024-09-28 05:00 | Outpatient (REF) | payer MEDICARE, SELFPAY ==
[2024-09-28 11:03] LABS: Anion Gap 10 (5-15); BUN 13 mg/dL (4-19); BUN/Creat Ratio 21.1 RATIO (10-20); Calcium,Total 9.1 mg/dL (7.6-11.0); Carbon Dioxide 25.6 mmol/L (21.0-32.0); Chloride 107 mmol/L (98-108); Glucose 84 mg/dL (70-99); Potassium 4.0 mmol/L (3.3-5.1)
[2024-09-28 11:18] LABS: Hematocrit 37.5 % (37-47); Hemoglobin 11.9 g/dL (12.0-15.0); Immature Granulocytes Count 0.020 X10^3/uL (0.0-0.0); Mean Corp Hgb Conc 31.7 g/dL (32-36); Mean Corpuscular Volume 102.5 fL (81-99); Mean Platelet Vol. 10.0 fl (6.2-12.0); NRBC Flagged by Analyzer 0 % (0-5); Platelet Count 209 K/mm3 (150-450); RBC Distribution Width CV 12.9 % (11.6-14.6); RBC Distribution Width SD 48.7 fl (35.1-43.9); Red Blood Count 3.66 M/mm3 (4.2-5.4); White Blood Count 5.3 K/mm3 (4.4-11.0)
== END ==
LOC: OLS.WHLTCC 05:00
PROVIDERS: PCP Family Medicine Geriatric Medicine; Visit Provider Nurse Practitioner Adult Health
DX: S32.010D Wedge compression fracture of first lumbar vertebra, subsequent encounter for fracture with routine healing (principal); M54.16 Radiculopathy, lumbar region; M54.50 Low back pain, unspecified; M48.061 Spinal stenosis, lumbar region without neurogenic claudication; I10 Essential (primary) hypertension
CPT/HCPCS: 36415; 80048; 85025

== ENCOUNTER → 2024-10-14 05:00 | Outpatient (REF) | payer MEDICARE, SELFPAY ==
--- OUTSIDE RECORDS SUMMARY | 2024-10-14 04:23 | XMS RPT_ITS | CCD ---
Author Organization [facility] Care Team Providers Care Wagon Person Name Role Phone Riddhi Espinosa Unavailable Divina RN, Lyric Williamson Unavailable Unavailable Riddhi Espinosa Unavailable Sp, Dr. Michael Bates Primary Care Provider [phone] Sp, Dr. Michael Bates Referring Provider Dr. Bret Daniels Attending Provider Sp, Dr. Michael Bates Primary Care Provider Sp, Dr. Michael Bates Referring Provider Dr. Bret Daniels Attending Provider Sp, Dr. Michael Bates Primary Care Provider Sp, Dr. Michael Bates Referring Provider Friend, Dr. Quevedo Attending Provider Fast DO, Noreen A Unavailable Dana Weldon Unavailable Unavailable Garage Door Opener Installer, System Unavailable Unavailable Sp, Dr. Michael Bates Primary Care Provider Sp, Dr. Michael Bates Referring Provider Friend, Dr. Quevedo Attending Provider [phone] Sp, Dr. Michael Bates Primary Care Provider [...] Richard MD Referring Provider Unavaila ble [place] [employer] OPERATOR-C, Audra Attending Provider Sp OROZCO, Dr. [...] Rei OROZCO, Dr. Ayon Other Provider [place] [employer] OPERATOR-C, Audra Attending Provider Beatriz OROZCO, Dr. Montejo Attending Provider Beatriz OROZCO, Nikia Attending Provider Unavaila navin Henderson MD, Nikia Referring Provider Unavaila ble [place] [employer] OPERATOR-C, Audra Attending Provider Michael Snowden Chi Primary Care Provider Sp OROZCO, Dr. Michael Bates Primary Care Provider Sp OROZCO, Dr. Michael Bates Attending Provider Sp OROZCO, Dr. Michael Bates Referring Provider Dr. Michael Snowden MD, Chi Primary Care Provider SETH CHOWDARY Attending Unavailable JEDLICKA, JOVANNI Referring Unavailable SP, MICHAEL CHI Primary Care Unavailable MILLIE PETTY Referring Unavailable SP, MICHAEL CHI Primary Care Unavailable AJAY GRANT Attending Unavailable JEDLICKA, JOVANNI Referring Unavailable SP, MICHAEL CHI Primary Care Unavailable JEDLICKA, JOVANNI Attending Unavailable SELF Referring Unavailable SP, MICHAEL CHI Primary Care Unavailable Sp, Michael Chi Primary Care Unavailable Tickton OLS Audra Attending Unavailable Tickton OLS, Audra Attending Unavailable Sp, Michael Chi Primary [...] Sp, Michael Chi Primary Care Unavailable [place]ick[place] OLS Audra Attending Unavailable Oleghe OLS, Efewongbe Attending Unavailabl e Sp, Michael Chi Primary Care Unavailable Oleghe OLS, Efewongbe Attending Unavailabl e Sp, Michael Chi Primary Care Unavailable Oleghe OLS, Efewongbe Attending Unavailabl e Sp, Michael Chi Primary Care Unavailable Sp, Michael Chi Primary Care Unavailable Tickton OLS Audra Attending Unavailable Sp, Michael Chi Primary Care Unavailable Sp, Michael Chi Attending Unavailable Sp, Michael Chi Referring Unavailable Sp, Michael Chi Primary Care Unavailable Sp, Michael Chi Attending Unavailable Sp, Michael Chi Referring Unavailable Sp, Michael Chi Primary Care Unavailable Sp, Michael Chi Attending Unavailable Sp, Michael Chi Referring Unavailable Oleghe OLS, Efewongbe Attending Unavailabl e Sp, Michael Chi Primary Care Unavailable Sp, Michael Chi Primary Care Unavailable Floridalma Bingham Attending Unavailable Sp, Michael Chi Primary Care Unavailable Fahad Martinez Attending Unavailable Watkins, Lesli Admitting Unavailable Gabo Hernandez Attending Unavailable Basali, Ayman Consulting Unavailable Sp, Michael Chi Primary Care Unavailable Watkins, Lesli Consulting Unavailable Rei Gabo Consulting Unavailable Sp, Michael Chi Admitting Unavailable Sp, Michael Chi Referring Unavailable Sp, Michael Chi Attending Unavailable Sp, Michael Chi Primary Care Unavailable Audra Drake Attending Unavailable Sp, Michael Chi Primary Care Unavailable Oleghe CONCEPCION Efewongbe Attending Unavailabl e Sp, Michael Chi Primary Care Unavailable Sp, Michael Chi Primary Care Unavailable Sae Brandt Attending Unavailable Sp, Michael Chi Referring Unavailable Gabo Hernandez Attending Unavailable Basali, Ayman Consulting Unavailable Watkins, Lesli Admitting Unavailable Sp, Michael Chi Primary Care Unavailable Watkins, Lesli Consulting Unavailable KotsoniRodrigo willisGabo F Consulting Unavailable Watkins, Lesli Attending Unavailable Gabo Hernandez F Attending Unavailable Basali, Ayman Consulting Unavailable Sp, Michael Chi Primary Care Unavailable Watkins, Lesli Admitting Unavailable Watkins, Lesli Consulting Unavailable KotsoniRodrigo willisGbao F Consulting Unavailable Ps, Michael Chi Primary Care Unavailable Tami Caldwell Attending Unavailable Sp, Michael Chi Referring Unavailable [...] Consulting Unavailable Sp, Michael Chi Referring Unavailable Nagajothi, Nagapradee Referring Unavailabl e Nagajothi Nagapradee Attending Unavailabl e Sp, Michael Chi Primary Care Unavailable Audra Drake Attending Unavailable Sp, Michael Chi Primary Care Unavailable Audra García Attending Unavailable Sp, Michael Chi Primary Care Unavailable Audra García Attending Unavailable Sp, Michael Chi Primary Care Unavailable Roberte Efewongbe Attending Unavailable Sp, Michael Chi Primary Care Unavailable Oleghe CONCEPCION Efewongbe Referring Unavailabl e Oleghe CONCEPCION Efewongbe Attending Unavailabl e Sp, Michael Chi Primary Care Unavailable Allergies Allergy Classification Reported Allergen(s) Allergy Type Date of Onset Reaction(s) Facility (3 sources) alendronate drug allergy 015 GI upset [facility] Work Phone: (3 sources) amLODIPine drug allergy 016 "freezes up limbs" [facility] Work Phone: (3 sources) atorvastatin drug allergy 016 muscle weakness [facility] Work Phone: (20 sources) codeine; Translations: [CODEINE] drug allergy 009 Intolerance [facility] Work Phone: (20 sources) ibuprofen; Translations: [IBUPROFEN] drug allergy 005 GI Upset [facility] Work Phone: (20 sources) lisinopril; Translations: [LISINOPRIL] drug allergy 012 Swelling, Anaphylaxis [facility] Work Phone: (3 sources) NIFEdipine drug allergy 016 "freezes up limbs" [facility] Work Phone: (3 sources) HCTZ drug allergy 015 low sodium [facility] Work Phone: (6 sources) NKDA drug allergy 013 [facility] Work Phone: (20 sources) Alendronate; Translations: [ALENDRONATE SODIUM] Drug Allergy 015 GI Upset, Other: See Comments [facility] (20 sources) amLODIPine Drug Allergy Freezes up limbs [facility] (20 sources) atorvastatin; Translations: [ATORVASTATIN] Drug Allergy 016 Intolerance [facility] (20 sources) Doxazosin; Translations: [DOXAZOSIN] Drug Allergy Other: See Comments [facility] Comment on above: VASOVAGAL (20 sources) hydroCHLOROthiazide; Translations: [HYDROCHLOROTHIAZIDE] Drug Allergy Other: See Comments [facility] (20 sources) NIFEdipine; Translations: [NIFEDIPINE] Drug Allergy Other: See Comments [facility] (1 source) HCTA Propensity to adverse reactions Low sodium [facility] Work Phone: (1 source) Ibuprofen Drug Allergy [facility] Work Phone: Comment on above: abd pain (1 source) Codeine/Codeine Derivatives; Translations: [Codeine/Codeine Derivatives] Allergy to substance (finding) [facility]; [facility] Work Phone: Comment on above: Headache (1 source) Alendronate; Translations: [ALENDRONATE] Drug Allergy [facility] Repository (1 source) Alendronate Drug Allergy [facility] Repository (1 source) amLODIPine Drug Allergy [facility] Repository (1 source) atorvastatin Drug Allergy [facility] Repository (1 source) Doxazosin Drug Allergy [facility] Repository (1 source) hydroCHLOROthiazide Drug Allergy [facility] Repository (1 source) NIFEdipine Drug Allergy [facility] Repository Medications Current Medications Medication Drug Class(es) [...] One tablet by mouth twice daily CHOLECALCIFEROL [id number] Bret Daniels MD Start: 02-04-2012 take 2 tablets by mo [facility] once daily VITAMIN D 2000 UNIT TABS Two tablets by mouth daily CHOLECALCIFEROL [id number] Lyric Murcia RN take 1 tablet by [...] 06-07-2015 COMPOUNDED PRE SCRIPTION 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 Dx: Bilat sprained ankles, gait instability. 1 Each 0 06/07/2015 Active docusate sodium 50 mg / ana osides, alf 8.6 mg oral tablet (20 sources) Start: [...] Start: 02-08-2013 take 1 tablet by libby twice daily TOPROL XL 25 MG [id number] One tablet by mouth twice daily METOPROLOL SUCCINATE [id number] Bret Daniels MD Start: 02-08-2013 take 1 tablet by libby th twice daily TOPROL XL 25 MG [id number] One tablet by mouth twice daily METOPROLOL SUCCINATE [id number] Lyric Murcia RN Start: 02-08-2013 take 1 tablet by libby th once daily TOPROL XL 25 MG [id number] One tablet by mouth daily METOPROLOL SUCCINATE [id number] Ashley Ernst PA-C Start: 02-08-2013 take 1 tablet by libby th twice daily TOPROL XL 25 MG [id number] One tablet by mouth twice daily METOPROLOL SUCCINATE [id number] Bret Daniels MD Start: 02-08-2013 take 1 tablet by libby th once daily TOPROL XL 50 MG [id number] One half tablet by mouth daily METOPROLOL SUCCINATE [id number] Bret Daniels MD Start: 02-08-2013 take 1 tablet by libby th twice daily TOPROL XL 25 MG [id number] One tablet by mouth twice daily METOPROLOL SUCCINATE [id number] Lyric Murcia RN Start: 02-08-2013 take 1 tablet by libby th once daily TOPROL XL 25 MG [id number] One tablet by mouth daily METOPROLOL SUCCINATE [id number] Ashley Ernst PA-C Start: 02-04-2012 take 1 tablet by libby th once daily TOPROL XL 50 MG [id number] One tablet by mouth daily METOPROLOL SUCCINATE [id number] Bret Daniels MD Start: 02-04-2012 take 1 tablet by libby th once daily TOPROL XL 50 MG [id number] One tablet by mouth daily METOPROLOL SUCCINATE [id number] Bret Daniels MD MULTIVITAMIN TAB (6 sources) [...] mcg Tablet Active 1000 ug PO DAILY May 19, 2024 1:00am Start: 04-11-2024 End: 05-19-2024 Start: 02-04-2012 take 1 tablet by libby th once daily VITAMIN B-12 100 MCG TABS One tablet by mouth daily CYANOCOBALAMIN [id number] Bret Daniels MD take 1 tablet by [...] tablet by mouth daily B COMPLEX VITAMINS [id number] Bret Daniels MD Start: 05-22-2014 End: 07-14-2018 [...] tablet by mouth daily B COMPLEX VITAMINS [id number] Lyric Murcia RN Start: 02-04-2012 End: 03-08-2015 take 1 tablet by mouth once daily VITAMIN B COMPLEX TABS One tablet by mouth daily B COMPLEX VITAMINS [id number] Ashley Ernst PA-C VITAMIN B COMPLEX ORAL [...] 15, 2016 12:00am July 02, 2017 2:34pm Nicholas (20 sources) Start: 05-25-2020 End: 02-23-2024 Start: 05-25-2020 End: 02-23-2024 Nicholas 650 mg tablet Discon tinued mg PO May 25, 2020 1:00am February 23, 2024 1:42pm Start: 05-25-2020 Nicholas Active MG PO May 25, 2020 12:00am Start: 05-25-2020 Nicholas Active MG PO May 25, 2020 1:00am Start: 07-02-2017 End: 08-18-2017 Start: 07-02-2017 End: 08-18-2017 take 1 tablet by mouth once daily Nicholas 650 mg tablet Discontinued 650 mg PO daily July 02, 2017 12:00am August 18, 2017 3:35pm Start: 07-02-2017 End: 08-18-2017 take 650 mg by mouth once daily Nicholas Discontinued 6 50 MG PO daily July 01, 2017 11:00pm August 18, 2017 2:35pm Start: 07-02-2017 End: 08-18-2017 take 650 mg by mouth once daily Nicholas Discontinued 6 50 MG PO daily July 02, 2017 12:00am August 18, 2017 3:35pm Start: 02-03-2013 End: 02-10-2014 ALFALFA 650 MG TABS as neede d ALFALFA [id number] GERALD MoranC amLODIPine 2.5 mg oral table [...] One tablet by mouth daily AMLODIPINE BESYLATE [id number] Bret Daniels MD Start: 08-03-2014 End: 08-05-2014 take 1 tablet by mouth once daily NORVASC 2.5 MG TABS One tablet by mouth daily AMLODIPINE BESYLATE [id number] Lyric Murcia RN amoxicillin 500 mg oral [...] One tablet by mouth daily ASCORBIC ACID [id number] Lyric Murcia RN aspirin 81 mg chewable [...] mouth four times daily as needed ASPIRIN-CAFFEINE [id number] Lyric Murcia RN Start: 08-03-2014 take 2 tablets by mo uth four times daily as needed ANACIN 400-32 MG TABS Two tablets by mouth four times daily as needed FABIANA-CAFFEINE [id number] Lyric Murcia RN Start: 08-03-2014 take 2 [...] ANACIN 400-32 MG TABS as needed ASPIRIN-CAFFEINE [id number] Elenita Villalobos RN Start: 02-03-2013 End: 02-10-2014 ANACIN 400-32 MG TABS as nee ded ASPIRIN-CAFFEINE [id number] Ashley Ernst PA-C Start: 02-03-2013 End: 02-10-2014 ANACIN 400-32 MG TABS as nee ded ASPIRIN-CAFFEINE Ashley Ernst PA-C Start: 02-03-2013 ANACIN 400-32 MG TABS as needed ASPIRIN-CAFFEINE Elenita Villalobos RN atorvastatin 20 mg oral tablet (6 sources) HMG-CoA Reductase Inhibitor Start: 03-01-2015 End: 04-26-2015 take 1 tablet by mouth once daily ATORVASTATIN CALCIUM 20 MG TABS One tablet by mouth daily ATORVASTATIN CALCIUM [id number] Jessica Smith RN azaTHIOprine 100 mg injection (6 sources) Purine Antimetabolite Start: 03-01-2015 End: 03-08-2015 take 1 tablet by mouth once daily AZASAN 100 MG TABS One tablet by mouth daily AZATHIOPRINE [id number] Lyric Murcia RN biotin (6 sources) Start: 02-04-2012 End: 02-08-2013 take 1 tablet by mouth once daily BIOTIN FORTE TABS One tablet by mouth daily BIOTIN TABS [id number] Ashley Ernst PA-C Start: 02-04-2012 take 1 tablet by libby once daily BIOTIN FORTE TABS One tablet by mouth daily BIOTIN TABS [id number] Bret Daniels MD CALCIUM-MAGNESIUM TABS (3 sources) Start: 02-04-2012 take 2 tablets by mouth once daily THERESE-MAG TABS Two tablets by mouth daily CALCIUM-MAGNESIUM TABS [id number] MD MONICA SalazarYN (3 sources) Start: 06-11-2016 take 1 tablet [...] One half tablet by mouth daily CHLORTHALIDONE [id number] Aimee Davis RN Start: 05-22-2014 End: 05-23-2014 [...] TABS One tablet by mouth daily HYDROCHLOROTHIAZIDE [id number] Bret Daniels MD lactulose 667 mg/ml oral solution (20 sources) Osmotic Laxative Start: 2020 End: 2022 Start: 03-01-2015 LACTULOSE 10 G M/15ML SOLN 30 cc (20 gm) by mouth daily as needed LACTULOSE [id number] Bret Daniels MD Start: 11-14-2014 End: 07-15-2016 [...] at bedtime 250mg tablets MAGNESIUM OXIDE CAPS [id number] Bret Daniels MD Start: 08-13-2013 MAGNESIUM OXID E CAPS 4 tablets at bedtime MAGNESIUM OXIDE CAPS [id number] Bret Daniels MD melatonin 3 mg oral [...] One tablet by mouth daily MULTIPLE VITAMIN [id number] Bret Daniels MD Buwcwilcqtkr-Qb-Sqia- Minerals (13 sources) Start: 02-16-2015 End: 07-02-2017 take 1 tablet by mouth once daily Cbsxadmmbnfg-Bi-Gfgy-Mine rals Discontinued 1 TABLET PO DAILY February 16, 2015 12:00am July 02, 2017 1:34pm Start: 02-16-2015 End: 07-02-2017 take 1 tablet by mouth once daily Zvdcmskgtaqb-Ku-Klml-Minerals Discontinu ed 1 TABLET PO DAILY February 16, 2015 1:00am July 02, 2017 2:34pm Hpiukuqidsvn-Ug-Wyxp-Mineral s 1 EACH tablet (2 sources) Start: 02-16-2015 End: 07-02-2017 take 1 tablet by mouth once daily Fmahcmegjfer-Yb-Lqpp-Minerals 1 EACH tablet Discontinued 1 {tbl} PO DAILY February 16, 2015 1:00am July 02, 2017 2:34pm naproxen 250 mg oral tablet (6 sources) Nonster oidal Anti-in flammat ory Drug Start: 08-03-2014 End: 08-05-2014 take 1 tablet by mouth three times daily as needed NAPROXEN 250 MG TABS One tablet by mouth three times daily as needed NAPROXEN [id number] Bret Daniels MD nitrofurantoin, macrocrystal s 25 [...] 04-16-2024 End: 05-31-2024 take 1 capsule by [facility] every four hours as needed oxyCODONE [...] One tablet by mouth daily PANTOPRAZOLE SODIUM [id number] Bret Daniels MD Start: 03-01-2015 take 1 tablet by [facility] twice daily PROTONIX 40 MG TBEC One tablet by mouth twice daily PANTOPRAZOLE SODIUM [id number] Lyric Murcia RN potassium chloride 10 meq ex tended release oral tablet (20 sources) Start: 05-04-2013 End: 11-14-2014 Start: 02-08-2013 End: 03-01-2015 take 1 tablet by mouth once daily KLOR-CON M20 20 MEQ CR-TABS One tablet by mouth daily POTASSIUM CHLORIDE IRMA CR [id number] Lyric Murcia RN Start: 02-08-2013 take 1 tablet by libby th once daily KLOR-CON M20 20 MEQ CR-TABS One tablet by mouth daily POTASSIUM CHLORIDE IRMA CR [id number] Ashley Ernst PA-C Start: 02-08-2013 take 1 tablet by libby th once daily KLOR-CON M20 20 MEQ CR-TABS One tablet by mouth daily POTASSIUM CHLORIDE IRMA CR [id number] Ashley Ernst PA-C Start: 02-08-2013 End: 03-01-2015 take 1 tablet by mouth once daily KLOR-CON M20 20 MEQ CR-TABS One tablet by mouth daily POTASSIUM CHLORIDE IRMA CR [id number] Lyric Murcia RN Start: 08-13-2012 take 1 tablet by libby th twice daily KLOR-CON M20 20 MEQ CR-TABS One tablet by mouth twice daily POTASSIUM CHLORIDE IRMA GALLEGOS [id number] Lyric Murcia RN Start: 08-13-2012 take 1 tablet by libby th twice daily KLOR-CON M20 20 MEQ CR-TABS One tablet by mouth twice daily POTASSIUM CHLORIDE IRMA CR [id number] Lyric Murcia RN predniSONE 10 mg oral tablet (9 sources) Corticosteroid Start: 03-01-2015 End: 03-08-2015 take 1 tablet by mouth once daily PREDNISONE 10 MG TABS One tablet by mouth daily PREDNISONE [id number] Ashley Ernst PA-C sulfamethoxazole 800 mg / [...] 1:00am May 19, 2024 9:05pm vitamin a 50667 unt oral capsule (20 sources) Vitamin A [...] TABS Three tablets by mouth daily CHOLECALCIFEROL [id number] Bret Daniels MD Start: 02-04-2012 take 3 tablets by mo [facility] once daily VITAMIN D 1000 UNIT TABS Three tablets by mouth daily CHOLECALCIFEROL [id number] Bret Daniels MD Zypan (15 sources) Start: 10-13-2014 End: 02-19-2015 Atulypellen Discontinued 1 - 2 NMA PO 3 TIMES DAILY WITH MEALS October 13, 2014 12:00am February 19, 2015 12:17pm Start: 10-13-2014 End: 02-19-2015 take 1 capsule by mouth three times daily at mealtime Kacie Discontinued 1 - 2 CAP PO 3 [...] healing] Onset: 5 Episodic Other gastrointestinal disorders (19 sources) Diarrhea; [...] Onset: 5 Episodic Other nervous system disorders (16 sources) [...] [Anesthesia of skin] Onset: 4 Episodic Other nutritional; endocrine; and [...] Test Name Value Interpretation Reference Range Facility [facility] 09-07-2024 [facility] Telephone (ENDOMN) LIZETTE DAVIES ([id number]) 1945 F Date Time Provider Department 09/07/24 AJAY GRANT ENDOMN During your visit today, [...] mouth once daily. - COMPOUNDED PRESCRIPTION Viki CereScan defense 17 drops daily and working up to 60 drops daily (in divided doses). Serving size 30 drops. 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 Normal [facility] Absolute lymphocyte countOrd ered By: Audra Drake on 08-31-2024 Lymphocytes Auto (Unsp spec) [#/Vol] 1.73 10*3/uL 0.83-4.51 [facility] Anion gap in Serum or Plasma Ordered By: Audra Drake on 08-31-2024 Anion gap [Moles/Vol] 10 mmol/L 5-15 [facility] Automated lymphocyte count a s percentage of total leukocytesOrdered By: Audra Drake on 08-31-2024 Lymphocytes/100 WBC Auto (Unsp spec) 27.5 % 19-41 [facility] BUN/creatinine ratioOrdered By: Audra Drake on 08-31-2024 Urea nitrogen/Creatinine [Mass ratio] 20.3 mg/mg High 10-20 [facility] Basophil percentageOrdered B y: Audra Drake on 08-31-2024 Basophils/100 WBC (Bld) 0.6 % 0-1 [facility] Carbon dioxide, total [Moles /volume] in Central venous bloodOrdered By: Audra Drake on 08-31-2024 CO2 [Moles/Vol] 24.3 mmol/L 21.0-32.0 [facility] Chloride assayOrdered By: Dimitris Drake on 08-31-2024 Chloride [Moles/Vol] 106 mmol/L 98-108 [facility] Eosinophil percentageOrdered By: Audra Drake on 08-31-2024 Eosinophils/100 WBC (Bld) 2.4 % 0-5 [facility] Erythrocyte distribution wid th ratioOrdered By: Audra Drake on 08-31-2024 Erythrocyte distribution width (RBC) [Ratio] 13.3 % 11.6-14.6 [facility] Erythrocyte distribution wid th standard deviationOrdered By: Audra Drake on 08-31-2024 Erythrocyte distribution width (RBC) [Ratio] 50.0 fl High 35.1-43.9 [facility] Glomerular filtration rate ( GFR) estimation/1.73 sq m using serum, plasma, or whole bOrdered By: Audra Drake on 08-31-2024 GFR/1.73 sq M.predicted among non-blacks MDRD (S/P/Bld) [Vol rate/Area] 91 mL/min/{1.73_m2} >60 [facility] Hematocrit Auto (Bld) [Volum e fraction]Ordered By: Audra Drake on 08-31-2024 Hematocrit (Bld) [Volume fraction] 34.9 % Low 37-47 [facility] Hemoglobin measurementOrdere d By: Audra Drake on 08-31-2024 Hemoglobin (Bld) [Mass/Vol] 11.0 g/dL Low 12.0-15. 0 [facility] Immature granulocytes/100 WB C Auto (Bld)Ordered By: Audra Drake on 08-31-2024 Immature granulocytes/100 WBC (Bld) 0.500 % 0.0-0.9 [facility] MCV (mean corpuscular volume ) determinationOrdered By: Audra Drake on 08-31-2024 MCV (RBC) [Entitic vol] 101.7 fL High 81-99 [facility] Mean corpuscular hemoglobin (MCH) determinationOrdered By: Audra Drake on 08-31-2024 MCH (RBC) [Entitic mass] 32.1 pg High 27.0-32.0 [facility] Monocyte percentageOrdered B y: Audra Drake on 08-31-2024 Monocytes/100 WBC (Bld) 9.4 % 0-10 [facility] Neutrophil percentageOrdered By: Audra Drake on 08-31-2024 Neutrophils/100 WBC (Bld) 59.6 % 47-70 [facility] Platelet countOrdered By: Dimitris Drake on 08-31-2024 Platelets (Bld) [#/Vol] 208 10*3/uL 150-450 [facility] Potassium measurement (mass/ volume)Ordered By: Audra Drake on 08-31-2024 Potassium (Unsp spec) [Mass/Vol] 4.2 mmol/L 3.3-5.1 [facility] RBC Auto (Bld) [#/Vol]Ordere d By: Audra Drake on 08-31-2024 RBC (Bld) [#/Vol] 3.43 10*6/uL Low 4.2-5.[address] [facility] Serum creatinine measurement (mass/volume)Ordered By: Audra Drake on 08-31-2024 Creatinine [Mass/Vol] 0.63 mg/dL Low 0.70-1.20 [facility] Serum glucose measurement (m ass/volume)Ordered By: Audra Drake on 08-31-2024 Glucose [Mass/Vol] 81 mg/dL 70-99 [facility] Serum or plasma calcium gianluca urement (mass/volume)Ordered By: Audra Drake on 08-31-2024 Calcium [Mass/Vol] 8.8 mg/dL 7.6-11.0 oste [facility] Serum or plasma urea nitroge n measurement (mass/volume)Ordered By: Audra Drake on 08-31-2024 Urea nitrogen [Mass/Vol] 13 mg/dL 4-19 [facility] Sodium levelOrdered By: Cony Drake on 08-31-2024 Sodium [Moles/Vol] 141 mmol/L 133-145 [facility] White blood cell (WBC) count Ordered By: Audra Drake on 08-31-2024 WBC (Bld) [#/Vol] 6.3 10*3/uL 4.4-11.0 [facility] Absolute lymphocyte countOrd ered By: Nikia Henderson on 08-24-2024 Lymphocytes Auto (Unsp spec) [#/Vol] 1.65 10*3/uL 0.83-4.51 [facility] Anion gap in Serum or Plasma Ordered By: Nikia Henderson on 08-24-2024 Anion gap [Moles/Vol] 9 mmol/L 5-15 [facility] Automated lymphocyte count a s percentage of total leukocytesOrdered By: Nikia Henderson on 08-24-2024 Lymphocytes/100 WBC Auto (Unsp spec) 25.9 % 19-41 [facility] BUN/creatinine ratioOrdered By: Nikia Henderson on 08-24-2024 Urea nitrogen/Creatinine [Mass ratio] 20.0 mg/mg 10-20 [facility] Basophil percentageOrdered B y: Nikia Jonese on 08-24-2024 Basophils/100 WBC (Bld) 0.6 % 0-1 [facility] Carbon dioxide, total [Moles /volume] in Central venous bloodOrdered By: Nikia Henderson on 08-24-2024 CO2 [Moles/Vol] 26.4 mmol/L 21.0-32.0 [facility] Chloride assayOrdered By: Cecilia Henderson on 08-24-2024 Chloride [Moles/Vol] 107 mmol/L 98-108 [facility] Eosinophil percentageOrdered By: Eflaura Jonese on 08-24-2024 Eosinophils/100 WBC (Bld) 2.5 % 0-5 [facility] Erythrocyte distribution wid th ratioOrdered By: Nikia Henderson on 08-24-2024 Erythrocyte distribution width (RBC) [Ratio] 13.1 % 11.6-14.6 [facility] Erythrocyte distribution wid th standard deviationOrdered By: Nikia Henderson on 08-24-2024 Erythrocyte distribution width (RBC) [Ratio] 49.5 fl High 35.1-43.9 [facility] Glomerular filtration rate ( GFR) estimation/1.73 sq m using serum, plasma, or whole bOrdered By: Nikia Henderson on 08-24-2024 GFR/1.73 sq M.predicted among non-blacks MDRD (S/P/Bld) [Vol rate/Area] 80 mL/min/{1.73_m2} >60 [facility] Hematocrit Auto (Bld) [Volum e fraction]Ordered By: [facility] on 08-24-2024 Hematocrit (Bld) [Volume fraction] 36.3 % Low 37-47 [facility] Hemoglobin measurementOrdere d By: guanakorocky pointheladio Henderson on 08-24-2024 Hemoglobin (Bld) [Mass/Vol] 11.7 g/dL Low 12.0-15. 0 [facility] Immature granulocytes/100 WB C Auto (Bld)Ordered By: Nikia Henderson on 08-24-2024 Immature granulocytes/100 WBC (Bld) 0.300 % 0.0-0.9 [facility] MCV (mean corpuscular volume ) determinationOrdered By: Nikia Henderson on 08-24-2024 MCV (RBC) [Entitic vol] 102.0 fL High 81-99 [facility] Mean corpuscular hemoglobin (MCH) determinationOrdered By: laura Henderson on 08-24-2024 MCH (RBC) [Entitic mass] 32.9 pg High 27.0-32.0 [facility] Monocyte percentageOrdered B y: Nikia Henderson on 08-24-2024 Monocytes/100 WBC (Bld) 10.0 % 0-10 [facility] Neutrophil percentageOrdered By: laura Henderson on 08-24-2024 Neutrophils/100 WBC (Bld) 60.7 % 47-70 [facility] Platelet countOrdered By: Cecilia Henderson on 08-24-2024 Platelets (Bld) [#/Vol] 227 10*3/uL 150-450 [facility] Potassium measurement (mass/ volume)Ordered By: Nikia Henderson on 08-24-2024 Potassium (Unsp spec) [Mass/Vol] 4.1 mmol/L 3.3-5.1 [facility] RBC Auto (Bld) [#/Vol]Ordere d By: Ceciliakelleeheladio Jainjanicevioletta on 08-24-2024 RBC (Bld) [#/Vol] 3.56 10*6/uL Low 4.2-5.[address] [facility] Serum creatinine measurement (mass/volume)Ordered By: Nikia Henderson on 08-24-2024 Creatinine [Mass/Vol] 0.76 mg/dL 0.70-1.20 [facility] Serum glucose measurement (m ass/volume)Ordered By: Nikia Henderson on 08-24-2024 Glucose [Mass/Vol] 88 mg/dL 70-99 [facility] Serum or plasma calcium gianluca urement (mass/volume)Ordered By: Nikia Henderson on 08-24-2024 Calcium [Mass/Vol] 9.0 mg/dL 7.6-11.0 [facility] Serum or plasma urea nitroge n measurement (mass/volume)Ordered By: Nikia Jainjanicevioletta on 08-24-2024 Urea nitrogen [Mass/Vol] 15 mg/dL 4-19 [facility] Sodium levelOrdered By: Ceciliaguanako terra Cristobaljanicevioletta on 08-24-2024 Sodium [Moles/Vol] 142 mmol/L 133-145 [facility] White blood cell (WBC) count Ordered By: Nikia Henderson on 08-24-2024 WBC (Bld) [#/Vol] 6.4 10*3/uL 4.4-11.0 [facility] CNPNon 08-22-2024 [place] Telephone ([facility]) KEKELIZETTE MARTINEZ ([id number]) 1945 F Date Time Provider Department 08/22/24 AJAY GRANT During your visit today, we [...] your request via staff message to the [employer] Auth Appeals Pool ([id number]). You can find templates listed below to support your appeal in [employer] (Epic drop down, select patient care, select [...] Thank You, Jorje Prior Auth Appeals Team Endo [place] Appeal letter Jorje GRIFFIN Letter of Medical Necessity Jorje GRIFFIN Clindo Mary Prior [employer] Endocrinology AND Metabolism [place] Letter scanned into chart Allergies As of [...] mouth once daily. - COMPOUNDED PRESCRIPTION Viki CereScan defense 17 drops daily and working up to 60 drops daily (in divided doses). Serving size 30 drops. Mineral water and ethanol 20-24%) - OTC NUTRITIONAL SUPPLEMENT zypan supplement - COMPOUNDED PRESCRIPTION Home Health assessment director, itzel, PT. Dx: Bilat sprained ankles, gait [...] NOS [K92.2] 03/08/2005 MYALGIA AND MYOSITIS NOS [[id number]] 09/02/2005 CONGENITAL PES PLANUS [Q66.50] 06/29/2007 Tibialis Tendinitis [M76.829] 10/19/2007 Generalized Osteoarthrosis, Unspecified Site [M*04/05/2008 Contact Dermatitis and Other Eczema, due to Uns*04/05/2008 Morbid obesity with BMI of 40.0-44.9, adult (HC* 01/25/2016 Low back pain [M54.50] 12/14/2013 Numbness and tingling in hands [R20.0, R20.2] 12/14/2013 Spinal cord lesion (HCC) [G95.9] 12/14/2013 Neck pain [M54.2] (more content not included)... Normal [facility] Absolute lymphocyte countOrd ered By: Nikia Henderson on 08-17-2024 Lymphocytes Auto (Unsp spec) [#/Vol] 1.53 10*3/uL 0.83-4.51 [facility] Anion gap in Serum or Plasma Ordered By: Nikia Henderson on 08-17-2024 Anion gap [Moles/Vol] 10 mmol/L 5-15 [facility] Automated lymphocyte count a s percentage of total leukocytesOrdered By: Nikia Henderson on 08-17-2024 Lymphocytes/100 WBC Auto (Unsp spec) 26.2 % - [facility] BUN/creatinine ratioOrdered By: Nikia Henderson on 08-17-2024 Urea nitrogen/Creatinine [Mass ratio] 20.9 mg/mg High - [facility] Basophil percentageOrdered B y: Nikia Henderson on 08-17-2024 Basophils/100 WBC (Bld) 0.9 % 0-1 [facility] Carbon dioxide, total [Moles /volume] in Central venous bloodOrdered By: Nikia Henderson on 08-17-2024 CO2 [Moles/Vol] 26.8 mmol/L 21.0-32.0 [facility] Chloride assayOrdered By: Cecilia guanakoterra Henderson on 08-17-2024 Chloride [Moles/Vol] 106 mmol/L 98-108 [facility] Eosinophil percentageOrdered By: Nikia Henderson on 08-17-2024 Eosinophils/100 WBC (Bld) 2.1 % 0-5 [facility] Erythrocyte distribution wid th ratioOrdered By: guanakorocky pointheladio Henderson on 08-17-2024 Erythrocyte distribution width (RBC) [Ratio] 13.4 % 11.6-14.6 [facility] Erythrocyte distribution wid th standard deviationOrdered By: Nikia Henderson on 08-17-2024 Erythrocyte distribution width (RBC) [Ratio] 50.2 fl High 35.1-43.9 [facility] Glomerular filtration rate ( GFR) estimation/1.73 sq m using serum, plasma, or whole bOrdered By: Nikia Henderson on 08-17-2024 GFR/1.73 sq M.predicted among non-blacks MDRD (S/P/Bld) [Vol rate/Area] 90 mL/min/{1.73_m2} >60 [facility] Hematocrit Auto (Bld) [Volum e fraction]Ordered By: Nikia Henderson on 08-17-2024 Hematocrit (Bld) [Volume fraction] 34.6 % Low 37-47 [facility] Hemoglobin measurementOrdere d By: Nikia Henderson on 08-17-2024 Hemoglobin (Bld) [Mass/Vol] 11.2 g/dL Low 12.0-15. 0 [facility] Immature granulocytes/100 WB C Auto (Bld)Ordered By: Nikia Henderson on 08-17-2024 Immature granulocytes/100 WBC (Bld) 0.500 % 0.0-0.9 [facility] MCV (mean corpuscular volume ) determinationOrdered By: Nikia Cristobaljanicevioletta on 08-17-2024 MCV (RBC) [Entitic vol] 102.7 fL High 81-99 [facility] Mean corpuscular hemoglobin (MCH) determinationOrdered By: Nikia Henderson on 08-17-2024 MCH (RBC) [Entitic mass] 33.2 pg High 27.0-32.0 [facility] Monocyte percentageOrdered B y: Nikia Cristobalromi on 08-17-2024 Monocytes/100 WBC (Bld) 9.8 % 0-10 [facility] Neutrophil percentageOrdered By: laura Cristobalromi on 08-17-2024 Neutrophils/100 WBC (Bld) 60.5 % 47-70 [facility] Platelet countOrdered By: Cecilia sanchez Cristobalromi on 08-17-2024 Platelets (Bld) [#/Vol] 235 10*3/uL 150-450 [facility] Potassium measurement (mass/ volume)Ordered By: Cecilialaura Henderson on 08-17-2024 Potassium (Unsp spec) [Mass/Vol] 3.9 mmol/L 3.3-5.1 [facility] RBC Auto (Bld) [#/Vol]Ordere d By: Nikia Cristobalromi on 08-17-2024 RBC (Bld) [#/Vol] 3.37 10*6/uL Low 4.2-5.[address] [facility] Serum creatinine measurement (mass/volume)Ordered By: Nikia Henderson on 08-17-2024 Creatinine [Mass/Vol] 0.66 mg/dL Low 0.70-1.20 [facility] Serum glucose measurement (m ass/volume)Ordered By: Ceciliaguanakofedeheladio Henderson on 08-17-2024 Glucose [Mass/Vol] 84 mg/dL 70-99 [facility] Serum or plasma calcium gianluca urement (mass/volume)Ordered By: Cecilialaura Henderson on 08-17-2024 Calcium [Mass/Vol] 9.1 mg/dL 7.6-11.0 [facility] Serum or plasma urea nitroge n measurement (mass/volume)Ordered By: Nikia Henderson on 08-17-2024 Urea nitrogen [Mass/Vol] 14 mg/dL 4-19 [facility] Sodium levelOrdered By: Catalina Henderson on 08-17-2024 Sodium [Moles/Vol] 143 mmol/L 133-145 [facility] White blood cell (WBC) count Ordered By: Nikia Henderson on 08-17-2024 WBC (Bld) [#/Vol] 5.8 10*3/uL 4.4-11.0 [facility] CNOVon 08-13-2024 CNOV Office Visit ([facility] ) LIZETTE DAVIES ([id number]) 1945 F Date Time Provider Department 08/13/24 [...] Snowden MD REFERRING PROVIDER: Jovanni Matthew [address] [facility] [address] Lizette Davies is a 78 year old female presenting sibling. CHIEF COMPLAINT: Back and leg pain pain HISTORY OF PRESENT ILLNESS 78-year-old female with a history of sarcoidosis presenting with worsening back pain. She is accompanied by her two sisters, who provide additional history. Chaprarita reports a longstanding history of back pain, [...] walked recently and [facility]. She does not report bowel or [...] (degenerative disc disease), cervical MRI scanned into [facility] January 11, 2014 ([facility]) DDD (degenerative disc disease), lumbosacral Essential hypertension, [...] DIAGNOSTIC 02/16/15 (more content not included)... Normal [facility] Absolute lymphocyte countOrd ered By: Nikia Henderson on 08-10-2024 Lymphocytes Auto (Unsp spec) [#/Vol] 1.61 10*3/uL 0.83-4.51 [facility] Anion gap in Serum or Plasma Ordered By: Nikia Henderson on 08-10-2024 Anion gap [Moles/Vol] 10 mmol/L 5- [facility] Automated lymphocyte count a s percentage of total leukocytesOrdered By: Nikia Henderson on 08-10-2024 Lymphocytes/100 WBC Auto (Unsp spec) 28.1 % - [facility] BUN/creatinine ratioOrdered By: Nikia Henderson on 08-10-2024 Urea nitrogen/Creatinine [Mass ratio] 19.5 mg/mg 10- [facility] Basophil percentageOrdered B y: Nikia Henderson on 08-10-2024 Basophils/100 WBC (Bld) 0.9 % 0-1 [facility] Carbon dioxide, total [Moles /volume] in Central venous bloodOrdered By: Nikia Henderson on 08-10-2024 CO2 [Moles/Vol] 24.9 mmol/L 21.0-32.0 [facility] Chloride assayOrdered By: Cecilia Henderson on 08-10-2024 Chloride [Moles/Vol] 106 mmol/L 98-108 [facility] Eosinophil percentageOrdered By: Nikia Henderson on 08-10-2024 Eosinophils/100 WBC (Bld) 3.0 % 0-5 [facility] Erythrocyte distribution wid th ratioOrdered By: guanakorocky pointheladio Henderson on 08-10-2024 Erythrocyte distribution width (RBC) [Ratio] 13.6 % 11.6-14.6 [facility] Erythrocyte distribution wid th standard deviationOrdered By: Nikia Henderson on 08-10-2024 Erythrocyte distribution width (RBC) [Ratio] 51.5 fl High 35.1-43.9 [facility] Glomerular filtration rate ( GFR) estimation/1.73 sq m using serum, plasma, or whole bOrdered By: Nikia Henderson on 08-10-2024 GFR/1.73 sq M.predicted among non-blacks MDRD (S/P/Bld) [Vol rate/Area] 92 mL/min/{1.73_m2} >60 [facility] Hematocrit Auto (Bld) [Volum e fraction]Ordered By: Nikia Henderson on 08-10-2024 Hematocrit (Bld) [Volume fraction] 35.1 % Low 37-47 [facility] Hemoglobin measurementOrdere d By: Nikia Henderson on 08-10-2024 Hemoglobin (Bld) [Mass/Vol] 11.3 g/dL Low 12.0-15. 0 [facility] Immature granulocytes/100 WB C Auto (Bld)Ordered By: Nikia Henderson on 08-10-2024 Immature granulocytes/100 WBC (Bld) 0.200 % 0.0-0.9 [facility] MCV (mean corpuscular volume ) determinationOrdered By: Ceciliaguanakofedeheladio Henderson on 08-10-2024 MCV (RBC) [Entitic vol] 103.2 fL High 81-99 [facility] Mean corpuscular hemoglobin (MCH) determinationOrdered By: kelleeheladio Jainjanicevioletta on 08-10-2024 MCH (RBC) [Entitic mass] 33.2 pg High 27.0-32.0 [facility] Monocyte percentageOrdered B y: Onelheladio Jainjanicevioletta on 08-10-2024 Monocytes/100 WBC (Bld) 9.3 % 0-10 [facility] Neutrophil percentageOrdered By: guanakorocky pointheladio Jainjanicevioletta on 08-10-2024 Neutrophils/100 WBC (Bld) 58.5 % 47-70 [facility] Platelet countOrdered By: Cecilia laura Cristobaljanicevioletta on 08-10-2024 Platelets (Bld) [#/Vol] 233 10*3/uL 150-450 [facility] Potassium measurement (mass/ volume)Ordered By: Nikia Henderson on 08-10-2024 Potassium (Unsp spec) [Mass/Vol] 4.0 mmol/L 3.3-5.1 [facility] RBC Auto (Bld) [#/Vol]Ordere d By: Ceciliaguanakofedeheladio Jainjanicevioletta on 08-10-2024 RBC (Bld) [#/Vol] 3.40 10*6/uL Low 4.2-5.[address] [facility] Serum creatinine measurement (mass/volume)Ordered By: Nikia Henderson on 08-10-2024 Creatinine [Mass/Vol] 0.59 mg/dL Low 0.70-1.20 [facility] Serum glucose measurement (m ass/volume)Ordered By: Cecilialaura Henderson on 08-10-2024 Glucose [Mass/Vol] 80 mg/dL 70-99 [facility] Serum or plasma calcium gianluca urement (mass/volume)Ordered By: Nikia Henderson on 08-10-2024 Calcium [Mass/Vol] 9.0 mg/dL 7.6-11.0 [facility] Serum or plasma urea nitroge n measurement (mass/volume)Ordered By: Nikia Henderson on 08-10-2024 Urea nitrogen [Mass/Vol] 11 mg/dL 4-19 [facility] Sodium levelOrdered By: Catalina terra Beatriz on 08-10-2024 Sodium [Moles/Vol] 141 mmol/L 133-145 [facility] White blood cell (WBC) count Ordered By: Nikia Henderson on 08-10-2024 WBC (Bld) [#/Vol] 5.7 10*3/uL 4.4-11.0 [facility] Absolute lymphocyte countOrd ered By: Audra Drake on 08-03-2024 Lymphocytes Auto (Unsp spec) [#/Vol] 1.37 10*3/uL 0.83-4.51 [facility] Anion gap in Serum or Plasma Ordered By: Audra Drake on 08-03-2024 Anion gap [Moles/Vol] 8 mmol/L 5-15 [facility] Automated lymphocyte count a s percentage of total leukocytesOrdered By: Audra Drake on 08-03-2024 Lymphocytes/100 WBC Auto (Unsp spec) 23.5 % 19-41 [facility] BUN/creatinine ratioOrdered By: Audra Drake on 08-03-2024 Urea nitrogen/Creatinine [Mass ratio] 18.8 mg/mg 10-20 [facility] Basophil percentageOrdered B y: Audra Drake on 08-03-2024 Basophils/100 WBC (Bld) 0.9 % 0-1 [facility] Bilirubin directOrdered By: Audra Drake on 08-03-2024 Bilirubin.direct [Mass/Vol] 0.10 mg/dL 0.00-0.3 0 [facility] Bilirubin, totalOrdered By: Audra Drake on 08-03-2024 Bilirubin [Mass/Vol] 0.17 mg/dL 0.00-1.30 [facility] Carbon dioxide, total [Moles /volume] in Central venous bloodOrdered By: Audra Drake on 08-03-2024 CO2 [Moles/Vol] 24.9 mmol/L 21.0-32.0 [facility] Chloride assayOrdered By: Dimitris Darke on 08-03-2024 Chloride [Moles/Vol] 107 mmol/L 98-108 [facility] Eosinophil percentageOrdered By: Audra Drake on 08-03-2024 Eosinophils/100 WBC (Bld) 2.6 % 0-5 [facility] Erythrocyte distribution wid th ratioOrdered By: Audra Drake on 08-03-2024 Erythrocyte distribution width (RBC) [Ratio] 13.9 % 11.6-14.6 [facility] Erythrocyte distribution wid th standard deviationOrdered By: Audra Drake on 08-03-2024 Erythrocyte distribution width (RBC) [Ratio] 52.4 fl High 35.1-43.9 [facility] Folate [Moles/volume] in Ser um or PlasmaOrdered By: Audra Drake on 08-03-2024 Folate [Moles/Vol] 36.80 ng/mL High 4.60-34.[address] [facility] Glomerular filtration rate ( GFR) estimation/1.73 sq m using serum, plasma, or whole bOrdered By: Audra Drake on 08-03-2024 GFR/1.73 sq M.predicted among non-blacks MDRD (S/P/Bld) [Vol rate/Area] 87 mL/min/{1.73_m2} >60 [facility] Hematocrit Auto (Bld) [Volum e fraction]Ordered By: Audra Drake on 08-03-2024 Hematocrit (Bld) [Volume fraction] 33.6 % Low 37-47 [facility] Hemoglobin measurementOrdere d By: Audra Drake on 08-03-2024 Hemoglobin (Bld) [Mass/Vol] 11.0 g/dL Low 12.0-15. 0 [facility] Immature granulocytes/100 WB C Auto (Bld)Ordered By: Audra Drake on 08-03-2024 Immature granulocytes/100 WBC (Bld) 0.300 % 0.0-0.9 [facility] MCV (mean corpuscular volume ) determinationOrdered By: Audra Drake on 08-03-2024 MCV (RBC) [Entitic vol] 103.7 fL High 81-99 [facility] Magnesium measurement (mass/ volume)Ordered By: Audra Drake on 05-06-2025 Magnesium (Unsp spec) [Mass/Vol] 2.3 mg/dL High 1.5-2.2 [facility] Mean corpuscular hemoglobin (MCH) determinationOrdered By: Audra Drake on 08-03-2024 MCH (RBC) [Entitic mass] 34.0 pg High 27.0-32.0 [facility] Monocyte percentageOrdered B y: Audra Drake on 08-03-2024 Monocytes/100 WBC (Bld) 10.3 % High 0-10 [facility] Neutrophil percentageOrdered By: Audra Drake on 08-03-2024 Neutrophils/100 WBC (Bld) 62.4 % 47-70 [facility] No Panel InformationOrdered By: Audra Drake on 08-03-2024 21 U/L <32 [facility] Platelet countOrdered By: Dimitris Drake on 08-03-2024 Platelets (Bld) [#/Vol] 243 10*3/uL 150-450 [facility] Potassium measurement (mass/ volume)Ordered By: Audra Drake on 08-03-2024 Potassium (Unsp spec) [Mass/Vol] 4.4 mmol/L 3.3-5.1 [facility] RBC Auto (Bld) [#/Vol]Ordere d By: Audra Drake on 08-03-2024 RBC (Bld) [#/Vol] 3.24 10*6/uL Low 4.2-5.[address] [facility] Serum creatinine measurement (mass/volume)Ordered By: Audra Drake on 08-03-2024 Creatinine [Mass/Vol] 0.71 mg/dL 0.70-1.20 [facility] Serum globulin measurementOr dered By: Audra Drake on 08-03-2024 Globulin (S) [Mass/Vol] 3.0 g/dL 2.2-4.2 [facility] Serum glucose measurement (m ass/volume)Ordered By: Audra Drake on 08-03-2024 Glucose [Mass/Vol] 89 mg/dL 70-99 [facility] Serum or plasma alanine kim otransferase (ALT) measurementOrdered By: Audra Drake on 08-03-2024 ALT [Catalytic activity/Vol] 15 U/L <35 [facility] Serum or plasma albumin gianluca urement (mass/volume)Ordered By: Audra Drake on 08-03-2024 Albumin [Mass/Vol] 3.2 g/dL Low 3.4-4.8 [facility] Serum or plasma alkaline nikole sphatase measurementOrdered By: Audra Drake on 08-03-2024 ALP [Catalytic activity/Vol] 85 U/L 35-104 [facility] Serum or plasma calcium gianluca urement (mass/volume)Ordered By: Audra Drake on 08-03-2024 Calcium [Mass/Vol] 8.8 mg/dL 7.6-11.0 [facility] Serum or plasma urea nitroge n measurement (mass/volume)Ordered By: Audra Drake on 08-03-2024 Urea nitrogen [Mass/Vol] 13 mg/dL 4-19 [facility] Sodium levelOrdered By: Cony Drake on 08-03-2024 Sodium [Moles/Vol] 140 mmol/L 133-145 [facility] Total proteinOrdered By: Rubin Drake on 08-03-2024 Protein [Mass/Vol] 6.2 g/dL 5.9-8.4 [facility] Vitamin B12 ser/plasOrdered By: Audra Drake on 08-03-2024 Cobalamin (Vitamin B12) [Mass/Vol] 1509 pg/mL High 180-914 [facility] White blood cell (WBC) count Ordered By: Audra Drake on 08-03-2024 WBC (Bld) [#/Vol] 5.8 10*3/uL 4.4-11.0 [facility] Absolute lymphocyte countOrd ered By: Audra Drake on 07-27-2024 Lymphocytes Auto (Unsp spec) [#/Vol] 1.57 10*3/uL 0.83-4.51 [facility] Anion gap in Serum or Plasma Ordered By: Audra Drake on 07-27-2024 Anion gap [Moles/Vol] 9 mmol/L 5-15 [facility] Automated lymphocyte count a s percentage of total leukocytesOrdered By: Audra Drake on 07-27-2024 Lymphocytes/100 WBC Auto (Unsp spec) 26.8 % 19-41 [facility] BUN/creatinine ratioOrdered By: Audra Drake on 07-27-2024 Urea nitrogen/Creatinine [Mass ratio] 19.1 mg/mg 10-20 [facility] Basophil percentageOrdered B y: Audra Drake on 07-27-2024 Basophils/100 WBC (Bld) 0.7 % 0-1 [facility] Carbon dioxide, total [Moles /volume] in Central venous bloodOrdered By: Audra Drake on 07-27-2024 CO2 [Moles/Vol] 24.8 mmol/L 21.0-32.0 [facility] Chloride assayOrdered By: Dimitris Drake on 07-27-2024 Chloride [Moles/Vol] 106 mmol/L 98-108 [facility] Eosinophil percentageOrdered By: Audra Drake on 07-27-2024 Eosinophils/100 WBC (Bld) 2.4 % 0-5 [facility] Erythrocyte distribution wid th ratioOrdered By: Audra Drake on 07-27-2024 Erythrocyte distribution width (RBC) [Ratio] 14.1 % 11.6-14.6 [facility] Erythrocyte distribution wid th standard deviationOrdered By: Audra Drake on 07-27-2024 Erythrocyte distribution width (RBC) [Ratio] 53.5 fl High 35.1-43.9 [facility] Glomerular filtration rate ( GFR) estimation/1.73 sq m using serum, plasma, or whole bOrdered By: Audra Drake on 07-27-2024 GFR/1.73 sq M.predicted among non-blacks MDRD (S/P/Bld) [Vol rate/Area] 90 mL/min/{1.73_m2} >60 [facility] Hematocrit Auto (Bld) [Volum e fraction]Ordered By: Audra Drake on 07-27-2024 Hematocrit (Bld) [Volume fraction] 33.1 % Low 37-47 [facility] Hemoglobin measurementOrdere d By: Audra Drake on 07-27-2024 Hemoglobin (Bld) [Mass/Vol] 11.0 g/dL Low 12.0-15. 0 [facility] Immature granulocytes/100 WB C Auto (Bld)Ordered By: Audra Drake on 07-27-2024 Immature granulocytes/100 WBC (Bld) 0.500 % 0.0-0.9 [facility] MCV (mean corpuscular volume ) determinationOrdered By: Audra Drake on 07-27-2024 MCV (RBC) [Entitic vol] 103.4 fL High 81-99 [facility] Mean corpuscular hemoglobin (MCH) determinationOrdered By: Audra Drake on 07-27-2024 MCH (RBC) [Entitic mass] 34.4 pg High 27.0-32.0 [facility] Monocyte percentageOrdered B y: Audra Drake on 07-27-2024 Monocytes/100 WBC (Bld) 10.4 % High 0-10 [facility] Neutrophil percentageOrdered By: Audra Drake on 07-27-2024 Neutrophils/100 WBC (Bld) 59.2 % 47-70 [facility] Platelet countOrdered By: Dimitris Drake on 07-27-2024 Platelets (Bld) [#/Vol] 282 10*3/uL 150-450 [facility] Potassium measurement (mass/ volume)Ordered By: Audra Drake on 07-27-2024 Potassium (Unsp spec) [Mass/Vol] 4.3 mmol/L 3.3-5.1 [facility] RBC Auto (Bld) [#/Vol]Ordere d By: Audra Drake on 07-27-2024 RBC (Bld) [#/Vol] 3.20 10*6/uL Low 4.2-5.[address] [facility] Serum creatinine measurement (mass/volume)Ordered By: Audra Drake on 07-27-2024 Creatinine [Mass/Vol] 0.65 mg/dL Low 0.70-1.20 [facility] Serum glucose measurement (m ass/volume)Ordered By: Audra Drake on 07-27-2024 Glucose [Mass/Vol] 90 mg/dL 70-99 [facility] Serum or plasma calcium gianluca urement (mass/volume)Ordered By: Audra Drake on 07-27-2024 Calcium [Mass/Vol] 8.9 mg/dL 7.6-11.0 [facility] Serum or plasma urea nitroge n measurement (mass/volume)Ordered By: Audra Drake on 07-27-2024 Urea nitrogen [Mass/Vol] 12 mg/dL 4-19 [facility] Sodium levelOrdered By: Cony Drake on 07-27-2024 Sodium [Moles/Vol] 140 mmol/L 133-145 [facility] White blood cell (WBC) count Ordered By: Audra Drake on 07-27-2024 WBC (Bld) [#/Vol] 5.9 10*3/uL 4.4-11.0 [facility] CNPNon 07-22-2024 CNPN Telephone ([facility]) LIZETTE DAVIES ([id number]) 1945 F Date Time Provider Department 07/22/24 [...] mouth once daily. - COMPOUNDED PRESCRIPTION Viki CereScan defense 17 drops daily and working up to 60 drops daily (in divided doses). Serving size 30 drops. 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 Normal [facility] 1,25-dihydroxyvitamin D3 [Ma ss/Vol]on 07-21-2024 VIT D1,25 DIHYDROXY 34.0 pg/mL Normal 19.9-79.3 [facility] Comment on above: Order Comment: Iwona pedro Type: BLOOD SPECIMEN Ordering Facility: [facility] Address: [address] [place] [address] Performed By: #### 2 731-8, 16842-2, 3016-3, 2777-1 #### [facility] CLIA [id number] [address] [place] [address] [place] OF FRAN 25(OH)D3 SerPl-ncon 2024 25-hydroxyvitamin D3 [Mass/Vol] 65.9 ng/mL Normal 31.0-80.0 [facility] Comment on above: Order Comment: Iwona pedro Type: BLOOD SPECIMEN Ordering Facility: [facility] Address: [address] [place] [address] Result Comment: Clas sification of 25 OH Vitamin D status: Deficiency/Insufficiency: < or = 30 ng/ml. Sufficiency/Optimal Levels: 31-80 ng/mL Toxicity: > 100 ng/mL. Test performed by chemiluminescent immunoassay. Performed By: #### 2 731-8, 13520-3, 3016-3, 2777-1 #### [facility] CLIA [id number] [address] [place] [address] [place] CNOVon 07-21-2024 CNOV Office Visit (ENDOMN ) LIZETTE DAVIES ([id number]) 1945 F Date Time Provider Department 07/21/24 3:00 PM AJAY GRANT ENDOMN During your visit today, we recorded the following information about you: Pulse Blood pressure Weight Height 98/minute 109/75 68 kg 1.473 m Bebo Martinez MA 07/21/2024 2:47 PM Signed Thank you for choosing the [facility] Department of Endocrinology, Diabetes and Metabolism. Did you know that you need to call 48 hours in advance of your scheduled visit, if you are unable to make your appointment? The [facility] [place] thanks you for your commitment, because patients not showing to their appointment results in a lost opportunity for patients to receive [facility] health care at the [facility]. To Cancel an appointment, please choose one of the following: - Call the Appointment Call Center at [phone] - From [employer], Go to Appointments - Cancel Appts If cancelling, consider your need to reschedule to prevent further delays in your care. To Schedule an appointment, please choose one of the following: - Call the Appointment Call Center at [phone] - From [employer], Go to Appointments - Request an Appt [...] taking: Reported on 07/21/2024) COMPOUNDED PRESCRIPTION Viki CereScan defense 17 drops daily and working up to 60 drops daily (in divided doses). Serving size 30 drops. Mineral water and ethanol 20-24%) (Patient not taking: Reported on 07/21/2024) OTC NUTRITIONAL SUPPLEMENT zypan supplement (Patient not taking: Reported on 07/21/2024) COMPOUNDED PRESCRIPTION Home Health assessment director, itzel, PT. Dx: Bilat sprained ankles, gait instability. acetaminophen (TYLENOL EXTRA STRENGTH) 500 mg tablet Take 1 tablet by mouth every 6 hours as needed for Pain. Magnesium 250 mg tab Take 1,000 mg by mouth. (Patient not taking: Reported on 07/21/2024) MULTIVITAMIN TAB Take one(1) tablet daily. (Patient not taking: Reported on 07/21/2024) No current fa (more content not included)... Normal [facility] CNOV Office Visit (REMS31 ) LIZETTE DAVIES ([id number]) 1945 F Date Time Provider Department 07/21/24 [...] transitional care- ECF - PT stopped at [facility]. Can walk some with walker- about 30 [...] (degenerative disc disease), cervical MRI scanned into [facility] January 11, 2014 ([facility]) DDD (degenerative disc disease), lumbosacral Essential hypertension, [...] EGD ESOPHAGOGASTRODUODENO SCOPY TRANSORAL DIAGNOSTIC 02/16/15 EGD [facility] inpt ESOPHAGOGASTRODUODENO SCOPY TRANSORAL DIAGNOSTIC 05/11/15 EGD EXTRACTION, ERUPTED TOOTH OR EXPOSED ROOT (ELEVATION AND/OR FORCEPS REMOVAL) 1970s Wi (more content not included)... Normal [facility] Comprehensive metabolic 2000 panelon 07-21-2024 Albumin [Mass/Vol] 3.9 g/dL Normal 3.9-4.9 [facility] Comment on above: Order Comment: Speci men Type: BLOOD SPECIMEN Ordering Facility: [facility] Address: [address] [place] [address] Performed By: #### 2 731-8, 07330-3, 3016-3, 2776- #### [facility] CLIA [id number] [address] [place], [place] [address] [place] ALP [Catalytic activity/Vol] 108 U/L Normal 34-123 [facility] Comment on above: Order Comment: Speci men Type: BLOOD SPECIMEN Ordering Facility: [facility] Address: [address] [place] [address] Performed By: #### 2 731-8, 38429-2, 3015-3, 2776- #### [facility] CLIA [id number] [address] [place], [place] [address] [place] ALT [Catalytic activity/Vol] 13 U/L Normal 7-38 [facility] Comment on above: Order Comment: Speci men Type: BLOOD SPECIMEN Ordering Facility: [facility] Address: [address] [place] [address] Performed By: #### 2 731-8, 49983-3, 3015-3, 2776- #### [facility] CLIA [id number] [address] [place], [place] [address] [place] Anion gap [Moles/Vol] 14 mmol/L Normal 8-[address] [facility] Comment on above: Order Comment: Speci men Type: BLOOD SPECIMEN Ordering Facility: [facility] Address: [address] [place] [address] Performed By: #### 2 731-8, 97474-9, 3015-3, 2776- #### [facility] CLIA [id number] [address] [place], [place] [address] [place] AST [Catalytic activity/Vol] 19 U/L Normal 13-35 [facility] Comment on above: Order Comment: Speci men Type: BLOOD SPECIMEN Ordering Facility: [facility] Address: [address] [place] [address] Performed By: #### 2 731-8, 46394-8, 3015-3, 277-1 #### [facility] CLIA [id number] [address] [place] [address] [place] Bilirubin [Mass/Vol] 0.3 mg/dL Normal 0.2-1.3 [facility] Comment on above: Order Comment: Speci men Type: BLOOD SPECIMEN Ordering Facility: [facility] Address: [address] [place] [address] Performed By: #### 2 731-8, 97174-1, 3016-3, 277-1 #### [facility] CLIA [id number] [address] [place], [place] [address] [place] Calcium [Mass/Vol] 9.6 mg/dL Normal 8.5-10.2 [facility] Comment on above: Order Comment: Speci men Type: BLOOD SPECIMEN Ordering Facility: [facility] Address: [address] [place] [address] Performed By: #### 2 731-8, 78721-0, 3015-3, 277-1 #### [facility] CLIA [id number] [address] [place], [place] [address] [place] Chloride [Moles/Vol] 100 mmol/L Normal 98-107 [facility] Comment on above: Order Comment: Speci men Type: BLOOD SPECIMEN Ordering Facility: [facility] Address: [address] [place] [address] Performed By: #### 2 731-8, 86999-2, 3015-3, 277-1 #### [facility] CLIA [id number] [address] [place], [place] [address] [place] CO2 [Moles/Vol] 25 mmol/L Normal 22-30 [facility] Comment on above: Order Comment: Speci men Type: BLOOD SPECIMEN Ordering Facility: [facility] Address: [address] [place] [address] Performed By: #### 2 731-8, 87709-4, 301-3, 2777-1 #### [facility] CLIA [id number] [address] [place] [address] [place] Creatinine [Mass/Vol] 0.79 mg/dL Normal 0.58-0.[address] [facility] Comment on above: Order Comment: Iwona pedro Type: BLOOD SPECIMEN Ordering Facility: [facility] Address: [address] [place] [address] Performed By: #### 2 731-8, 14170-1, 3016-3, 2777-1 #### [facility] CLIA [id number] [address] [place] [address] [place] Creatinine and Glomerular filtration rate.predicted panel (S/P/Bld) 77 mL/min/1.73m??? Normal >=60 [facility] Comment on above: Order Comment: Iwona pedro Type: BLOOD SPECIMEN Ordering Facility: [facility] Address: [address] [place] [address] Result Comment: Brigida mated Glomerular Filtration Rate [...] actual GFR. Performed By: #### 2 731-8, 07808-9, 3016-3, 2777-1 #### [facility] CLIA [id number] [address] [place] [address] [place] Glucose [Mass/Vol] 97 mg/dL Normal 74-99 [facility] Comment on above: Order Comment: Iwona pedro Type: BLOOD SPECIMEN Ordering Facility: [facility] Address: [address] [place] [address] Result Comment: The [place] [employer] (ADA) provides guidance for cutoff [...] Standards of Medical Care in Diabetes 2016, [place] [employer]. Diabetes Care. 2016.39(Suppl 1). Performed By: #### 2 731-8, 51014-8, 3015-3, 2776- #### [facility] CLIA [id number] [address] [place] [address] [place] Potassium [Moles/Vol] 5.1 mmol/L Normal 3.7-5.[address] [facility] Comment on above: Order Comment: Specsolitario pedro Type: BLOOD SPECIMEN Ordering Facility: [facility] Address: [address] [place] [address] Performed By: #### 2 731-8, 35062-5, 3, 2776-03 #### [facility] CLIA [id number] [address] [place] [address] [place] Protein [Mass/Vol] 7.0 g/dL Normal 6.3-8.0 [facility] Comment on above: Order Comment: Megi willis Type: BLOOD SPECIMEN Ordering Facility: [facility] Address: [address] [place] [address] Performed By: #### 2 731-8, 58949-3, 3, 2776-03 #### [facility] CLIA [id number] [address] [place] [address] [place] Sodium [Moles/Vol] 139 mmol/L Normal 136-144 [facility] Comment on above: Order Comment: Speci men Type: BLOOD SPECIMEN Ordering Facility: [facility] Address: [address] [place] [address] Performed By: #### 2 731-8, 51986-1, 3015-3, 2776-1 #### [facility] CLIA [id number] [address] [place] [address] [place] Urea nitrogen [Mass/Vol] 14 mg/dL Normal 7-21 [facility] Comment on above: Order Comment: Speci men Type: BLOOD SPECIMEN Ordering Facility: [facility] Address: [address] [place] [address] Performed By: #### 2 731-8, 92387-2, 3016-3, 277-1 #### [facility] CLIA [id number] [address] [place] [address] [place] PTH-Intact SerPl-mCncon - Parathyrin.intact [Mass/Vol] 20 pg/mL Normal 15-65 [facility] Comment on above: Order Comment: Speci men Type: BLOOD SPECIMEN Ordering Facility: [facility] Address: [address] [place] [address] Performed By: #### 2 731-8, 60221-4, 3016-3, 277-1 #### [facility] CLIA [id number] [address] [place] [address] [place] Phosphate SerPl-mCncon 07-21 Phosphate [Mass/Vol] 3.9 mg/dL Normal 2.7-4.8 [facility] Comment on above: Order Comment: Speci men Type: BLOOD SPECIMEN Ordering Facility: [facility] Address: [address] [place] [address] Performed By: #### 2 731-8, 71410-9, 3016-3, 277-1 #### [facility] CLIA [id number] [address] [place] [address] [place] TSH SerPl-aCncon 07-21-2024 TSH Qn 0.762 m[IU]/L Normal 0.270-4.200 [facility] Comment on above: Order Comment: Speci men Type: BLOOD SPECIMEN Ordering Facility: [facility] Address: [address] [place] [address] Performed By: #### 2 731-8, 16959-1, 3016-3, 2777-1 #### [facility] CLIA [id number] [address] [place] [address] [place] [address] [place] Absolute lymphocyte countOrd ered By: Nikia Henderson on 07-20-2024 Lymphocytes Auto (Unsp spec) [#/Vol] 1.71 10*3/uL 0.83-4.51 [facility] Anion gap in Serum or Plasma Ordered By: Nikia Henderson on 07-20-2024 Anion gap [Moles/Vol] 10 mmol/L 5-15 [facility] Automated lymphocyte count a s percentage of total leukocytesOrdered By: Nikia Henderson on 07-20-2024 Lymphocytes/100 WBC Auto (Unsp spec) 28.0 % 19-41 [facility] BUN/creatinine ratioOrdered By: Nikia Henderson on 07-20-2024 Urea nitrogen/Creatinine [Mass ratio] 16.1 mg/mg 10-20 [facility] Basophil percentageOrdered B y: Nikia Henderson on 07-20-2024 Basophils/100 WBC (Bld) 0.7 % 0-1 [facility] Carbon dioxide, total [Moles /volume] in Central venous bloodOrdered By: Nikia Henderson on 07-20-2024 CO2 [Moles/Vol] 23.8 mmol/L 21.0-32.0 [facility] Chloride assayOrdered By: Cecilia Henderson on 07-20-2024 Chloride [Moles/Vol] 104 mmol/L 98-108 [facility] Eosinophil percentageOrdered By: Nikia Henderson on 07-20-2024 Eosinophils/100 WBC (Bld) 2.1 % 0-5 [facility] Erythrocyte distribution wid th ratioOrdered By: Nikia Henderson on 07-20-2024 Erythrocyte distribution width (RBC) [Ratio] 13.7 % 11.6-14.6 [facility] Erythrocyte distribution wid th standard deviationOrdered By: Nikia Henderson on 07-20-2024 Erythrocyte distribution width (RBC) [Ratio] 50.0 fl High 35.1-43.9 [facility] Glomerular filtration rate ( GFR) estimation/1.73 sq m using serum, plasma, or whole bOrdered By: Nikia Henderson on 07-20-2024 GFR/1.73 sq M.predicted among non-blacks MDRD (S/P/Bld) [Vol rate/Area] 92 mL/min/{1.73_m2} >60 [facility] Hematocrit Auto (Bld) [Volum e fraction]Ordered By: [facility] Henderson on 07-20-2024 Hematocrit (Bld) [Volume fraction] 33.5 % Low 37-47 [facility] Hemoglobin measurementOrdere d By: Nikia Henderson on 07-20-2024 Hemoglobin (Bld) [Mass/Vol] 11.3 g/dL Low 12.0-15. 0 [facility] Immature granulocytes/100 WB C Auto (Bld)Ordered By: Nikia Henderson on 07-20-2024 Immature granulocytes/100 WBC (Bld) 0.500 % 0.0-0.9 [facility] MCV (mean corpuscular volume ) determinationOrdered By: Nikia Henderson on 07-20-2024 MCV (RBC) [Entitic vol] 100.0 fL High 81-99 [facility] Mean corpuscular hemoglobin (MCH) determinationOrdered By: guanakorocky pointheladio Henderson on 07-20-2024 MCH (RBC) [Entitic mass] 33.7 pg High 27.0-32.0 [facility] Monocyte percentageOrdered B y: Nikia Henderson on 07-20-2024 Monocytes/100 WBC (Bld) 10.2 % High 0-10 [facility] Neutrophil percentageOrdered By: guanakorocky pointheladio Henderson on 07-20-2024 Neutrophils/100 WBC (Bld) 58.5 % 47-70 [facility] Platelet countOrdered By: Cecilia Henderson on 07-20-2024 Platelets (Bld) [#/Vol] 276 10*3/uL 150-450 [facility] Potassium measurement (mass/ volume)Ordered By: Nikia Henderson on 07-20-2024 Potassium (Unsp spec) [Mass/Vol] 4.1 mmol/L 3.3-5.1 [facility] RBC Auto (Bld) [#/Vol]Ordere d By: Nikia Henderson on 07-20-2024 RBC (Bld) [#/Vol] 3.35 10*6/uL Low 4.2-5.[address] [facility] Serum creatinine measurement (mass/volume)Ordered By: Nikia Henderson on 07-20-2024 Creatinine [Mass/Vol] 0.59 mg/dL Low 0.70-1.20 [facility] Serum glucose measurement (m ass/volume)Ordered By: Nikia Henderson on 07-20-2024 Glucose [Mass/Vol] 85 mg/dL 70-99 [facility] Serum or plasma calcium gianluca urement (mass/volume)Ordered By: Nikia Henderson on 07-20-2024 Calcium [Mass/Vol] 9.1 mg/dL 7.6-11.0 [facility] Serum or plasma urea nitroge n measurement (mass/volume)Ordered By: Nikia Henderson on 07-20-2024 Urea nitrogen [Mass/Vol] 9 mg/dL 4-19 [facility] Sodium levelOrdered By: Catalina connerling Beatriz on 07-20-2024 Sodium [Moles/Vol] 138 mmol/L 133-145 [facility] White blood cell (WBC) count Ordered By: Nikia Henderson on 07-20-2024 WBC (Bld) [#/Vol] 6.1 10*3/uL 4.4-11.0 [facility] Absolute lymphocyte countOrd ered By: Nikia Henderson on 07-13-2024 Lymphocytes Auto (Unsp spec) [#/Vol] 1.48 10*3/uL 0.83-4.51 [facility] Absolute neutrophil countOrd ered By: Nikia Henderson on 07-13-2024 Absolute neutrophil count 3.7 X10^3/uL 2.0-7.7 [facility] Anion gap [Moles/Vol]Ordered By: Nikia Henderson on 07-13-2024 Anion gap in Serum or Plasma 9 08-12 [facility] Anion gap in Serum or Plasma Ordered By: Nikia Henderson on 07-13-2024 Anion gap [Moles/Vol] 9 mmol/L 08-12 [facility] Automated lymphocyte count a s percentage of total leukocytesOrdered By: Nikia Henderson on 07-13-2024 Lymphocytes/100 WBC Auto (Unsp spec) 24.8 % - [facility] BUN/creatinine ratioOrdered By: Nikia Henderson on 07-13-2024 Urea nitrogen/Creatinine [Mass ratio] 19.7 mg/mg 01-17 [facility] BUN/creatinine ratio 19.7 RATIO 01-17 [facility] Basophil percentageOrdered B y: Nikia Henderson on 07-13-2024 Basophils/100 WBC (Bld) 0.8 % 0-1 [facility] Basophil percentage 0.8 % 0-[address] [facility] Calcium [Mass/Vol]Ordered By : Nikia Henderson on 07-13-2024 Serum or plasma calcium measurement (mass/volume) 8.8 mg/dL 7.6-11.0 [facility] Carbon dioxide, total [Moles /volume] in Central venous bloodOrdered By: Nikia Henderson on 07-13-2024 CO2 [Moles/Vol] 24.1 mmol/L 21.0-32.0 [facility] Carbon dioxide, total [Moles/volume] in Central venous blood 24.1 mmol/L 21.0-32.0 [facility] Chloride assayOrdered By: Cecilia Henderson on 07-13-2024 Chloride [Moles/Vol] 108 mmol/L 98-108 [facility] Chloride assay 108 mmol/L 98-108 [facility] Creatinine [Mass/Vol]Ordered By: Nikia Henderson on 07-13-2024 Serum creatinine measurement (mass/volume) 0.59 mg/dL Low 0.70-1.20 [facility] Eosinophil percentageOrdered By: Nikia Henderson on 07-13-2024 Eosinophils/100 WBC (Bld) 2.9 % 0-5 [facility] Eosinophil percentage 2.9 % 0-5 [facility] Erythrocyte distribution wid th (RBC) [Ratio]Ordered By: Nikia Henderson on 07-13-2024 Erythrocyte distribution width ratio 14.2 % 11.6-14.6 [facility] Erythrocyte distribution width standard deviation 52.8 fl High 35.1-43.9 [facility] Erythrocyte distribution wid th ratioOrdered By: Nikia Henderson on 07-13-2024 Erythrocyte distribution width (RBC) [Ratio] 14.2 % 11.6-14.6 [facility] Erythrocyte distribution wid th standard deviationOrdered By: Nikia Henderson on 07-13-2024 Erythrocyte distribution width (RBC) [Ratio] 52.8 fl High 35.1-43.9 [facility] GFR/1.73 sq M.predicted viji g non-blacks MDRD (S/P/Bld) [Vol rate/Area]Ordered By: Nikia Henderson on 07-13-2024 Glomerular filtration rate (GFR) estimation/1.73 sq m using serum, plasma, or whole b 92 >60 [facility] Glomerular filtration rate ( GFR) estimation/1.73 sq m using serum, plasma, or whole bOrdered By: Nikia Henderson on 07-13-2024 GFR/1.73 sq M.predicted among non-blacks MDRD (S/P/Bld) [Vol rate/Area] 92 mL/min/{1.73_m2} >60 [facility] Glucose [Mass/Vol]Ordered By : Nikia Henderson on 07-13-2024 Serum glucose measurement (mass/volume) 84 mg/dL 70-99 [facility] Hematocrit Auto (Bld) [Volum e fraction]Ordered By: Nikia Henderson on 07-13-2024 Hematocrit (Bld) [Volume fraction] 32.8 % Low 37-47 [facility] Automated blood hematocrit (percentage) 32.8 % Low 37-47 [facility] Hemoglobin measurementOrdere d By: Nikia Henderson on 07-13-2024 Hemoglobin (Bld) [Mass/Vol] 10.8 g/dL Low 12.0-15. 0 [facility] Hemoglobin measurement 10.8 g/dL Low 12.0-15.0 [facility] Immature granulocytes/100 WB C Auto (Bld)Ordered By: Nikia Henderson on 07-13-2024 Immature granulocytes/100 WBC (Bld) 0.700 % 0.0-0.9 [facility] Automated immature granulocyte percentage 0.700 % 0.0-0.9 [facility] Lymphocytes Auto (Unsp spec) [#/Vol]Ordered By: Nikia Henderson on 07-13-2024 Absolute lymphocyte count 1.48 X10^3/uL 0.83-4. 51 [facility] Lymphocytes/100 WBC Auto (Un sp spec)Ordered By: Nikia Henderson on 07-13-2024 Automated lymphocyte count as percentage of total leukocytes 24.8 % 19-41 [facility] MCV (RBC) [Entitic vol]Order ed By: Nikia Henderson on 07-13-2024 MCV (mean corpuscular volume) determination 102.2 fL High 81-99 [facility] MCV (mean corpuscular volume ) determinationOrdered By: Nikia Henderson on 07-13-2024 MCV (RBC) [Entitic vol] 102.2 fL High 81-99 [facility] Mean corpuscular hemoglobin (MCH) determinationOrdered By: Nikia Henderson on 07-13-2024 MCH (RBC) [Entitic mass] 33.6 pg High 27.0-32.0 [facility] Mean corpuscular hemoglobin (MCH) determination 33.6 pg High 27.0-32.0 [facility] Mean corpuscular hemoglobin concentration (MCHC) determinationOrdered By: Nikia Henderson on 07-13-2024 Mean corpuscular hemoglobin concentration (MCHC) determination 32.9 g/dL 32-36 [facility] Mean platelet volume determi nationOrdered By: Nikia Henderson on 07-13-2024 Mean platelet volume determination 9.5 fl 6.2-12.0 [facility] Monocyte percentageOrdered B y: Nikia Henderson on 07-13-2024 Monocytes/100 WBC (Bld) 9.1 % 0-10 [facility] Monocyte percentage 9.1 % 0-[address] [facility] Neutrophil percentageOrdered By: Nikia Henderson on 07-13-2024 Neutrophils/100 WBC (Bld) 61.7 % 47-70 [facility] Neutrophil percentage 61.7 % 47-70 [facility] Nucleated red blood cell per centageOrdered By: Nikia Henderson on 07-13-2024 Nucleated red blood cell percentage 0 % 0-5 [facility] Platelet countOrdered By: Cecilia Henderson on 07-13-2024 Platelets (Bld) [#/Vol] 267 10*3/uL 150-450 [facility] Platelet count 267 K/mm3 150-450 [facility] Potassium (Unsp spec) [Mass/ Vol]Ordered By: Nikia Henderson on 07-13-2024 Potassium measurement (mass/volume) 4.1 mmol/L 3.3-5.1 [facility] Potassium measurement (mass/ volume)Ordered By: Nikia Henderson on 07-13-2024 Potassium (Unsp spec) [Mass/Vol] 4.1 mmol/L 3.3-5.1 [facility] RBC Auto (Bld) [#/Vol]Ordere d By: Nikia Henderson on 07-13-2024 RBC (Bld) [#/Vol] 3.21 10*6/uL Low 4.2-5.[address] [facility] Automated blood erythrocyte count 3.21 M/mm3 Low 4.2-5.4 [facility] Serum creatinine measurement (mass/volume)Ordered By: Nikia Henderson on 07-13-2024 Creatinine [Mass/Vol] 0.59 mg/dL Low 0.70-1.20 [facility] Serum glucose measurement (m ass/volume)Ordered By: Nikia Henderson on 07-13-2024 Glucose [Mass/Vol] 84 mg/dL 70-99 [facility] Serum or plasma calcium gianluca urement (mass/volume)Ordered By: Nikia Henderson on 07-13-2024 Calcium [Mass/Vol] 8.8 mg/dL 7.6-11.0 [facility] Serum or plasma urea nitroge n measurement (mass/volume)Ordered By: Cecilialaura Jainjanicevioletta on 07-13-2024 Urea nitrogen [Mass/Vol] 12 mg/dL - [facility] Sodium levelOrdered By: Ceciliaguanako terra Cristobalromi on 07-13-2024 Sodium [Moles/Vol] 141 mmol/L 133-145 [facility] Sodium level 141 mmol/L 133-145 [facility] Urea nitrogen [Mass/Vol]Orde red By: Nikia Cristobalromi on 07-13-2024 Serum or plasma urea nitrogen measurement (mass/volume) 12 mg/dL - [facility] White blood cell (WBC) count Ordered By: Ceciliaguanakofedeheladio Jainjanicevioletta on 07-13-2024 WBC (Bld) [#/Vol] 6.0 10*3/uL 4.4-11.0 [facility] White blood cell (WBC) count 6.0 K/mm3 4.4-11.0 [facility] CNPNon 07-08-2024 CNPN Telephone (REMS31) LIZETTE DAVIES ([id number]) 1945 F Date Time Provider Department 07/08/24 JOVANNI MATTHEW REMS31 During your visit today, we recorded the following information about you: Andressa Arias 07/08/2024 1:55 PM Signed New Patient appointment on 07/21/24 Received outside hospital, [facility] Radiology reports for x-rays and MRIs for [...] mouth once daily. - COMPOUNDED PRESCRIPTION Viki kenny defense 17 drops daily and working up to 60 drops daily (in divided doses). Serving size 30 drops. 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 Tibialis [...] Status:Closed by JOVANNI MATTHEW on 07/26/24 Normal [facility] Absolute lymphocyte countOrd ered By: Nikia Henderson on 07-06-2024 Lymphocytes Auto (Unsp spec) [#/Vol] 1.68 10*3/uL 0.83-4.51 [facility] Absolute neutrophil countOrd ered By: Nikia Henderson on 07-06-2024 Neutrophils (Bld) [#/Vol] 4.0 10*3/uL 2.0-7.7 [facility] Absolute neutrophil count 4.0 X10^3/uL 2.0-7.7 [facility] Anion gap [Moles/Vol]Ordered By: Nikia Henderson on 07-06-2024 Anion gap in Serum or Plasma 10 5- [facility] Anion gap in Serum or Plasma Ordered By: Nikia Henderson on 07-06-2024 Anion gap [Moles/Vol] 10 mmol/L - [facility] Automated lymphocyte count a s percentage of total leukocytesOrdered By: Nikia Henderson on 07-06-2024 Lymphocytes/100 WBC Auto (Unsp spec) 25.1 % - [facility] BUN/creatinine ratioOrdered By: Nikia Henderson on 07-06-2024 Urea nitrogen/Creatinine [Mass ratio] 23.7 mg/mg High 10-20 [facility] BUN/creatinine ratio 23.7 RATIO High 10-20 [facility] Basophil percentageOrdered B y: Nikia Henderson on 07-06-2024 Basophils/100 WBC (Bld) 0.9 % 0-1 [facility] Basophil percentage 0.9 % 0-[address] [facility] Calcium [Mass/Vol]Ordered By : Nikia Henderson on 07-06-2024 Serum or plasma calcium measurement (mass/volume) 8.8 mg/dL 7.6-11.0 [facility] Carbon dioxide, total [Moles /volume] in Central venous bloodOrdered By: Nikia Henderson on 07-06-2024 CO2 [Moles/Vol] 22.4 mmol/L 21.0-32.0 [facility] Carbon dioxide, total [Moles/volume] in Central venous blood 22.4 mmol/L 21.0-32.0 [facility] Chloride assayOrdered By: Cecilia Henderson on 07-06-2024 Chloride [Moles/Vol] 108 mmol/L 98-108 [facility] Chloride assay 108 mmol/L 98-108 [facility] Creatinine [Mass/Vol]Ordered By: Nikia Henderson on 07-06-2024 Serum creatinine measurement (mass/volume) 0.76 mg/dL 0.70-1.20 [facility] Eosinophil percentageOrdered By: Nikia Henderson on 07-06-2024 Eosinophils/100 WBC (Bld) 2.5 % 0-5 [facility] Eosinophil percentage 2.5 % 0-5 [facility] Erythrocyte distribution wid th (RBC) [Ratio]Ordered By: Nikia Henderson on 07-06-2024 Erythrocyte distribution width ratio 14.3 % 11.6-14.6 [facility] Erythrocyte distribution width (RBC) [Entitic vol] 53.8 fL High 35.1-43.9 [facility] Erythrocyte distribution width standard deviation 53.8 fl High 35.1-43.9 [facility] Erythrocyte distribution wid th ratioOrdered By: Nikia Henderson on 07-06-2024 Erythrocyte distribution width (RBC) [Ratio] 14.3 % 11.6-14.6 [facility] Erythrocyte distribution wid th standard deviationOrdered By: Nikia Henderson on 07-06-2024 Erythrocyte distribution width (RBC) [Ratio] 53.8 fl High 35.1-43.9 [facility] GFR/1.73 sq M.predicted viji g non-blacks MDRD (S/P/Bld) [Vol rate/Area]Ordered By: Nikia Henderson on 07-06-2024 Estimated GFR (MDRD) Non-Af Amer 80 >60 [facility] Comment on above: mL/min/1.73m2 CKD-EP I Creatinine Equation (2020) Glomerular filtration rate (GFR) estimation/1.73 sq m using serum, plasma, or whole b 80 >60 [facility] Glomerular filtration rate ( GFR) estimation/1.73 sq m using serum, plasma, or whole bOrdered By: Nikia Henderson on 07-06-2024 GFR/1.73 sq M.predicted among non-blacks MDRD (S/P/Bld) [Vol rate/Area] 80 mL/min/{1.73_m2} >60 [facility] Glucose [Mass/Vol]Ordered By : Nikia Henderson on 07-06-2024 Serum glucose measurement (mass/volume) 90 mg/dL 70-99 [facility] Hematocrit Auto (Bld) [Volum e fraction]Ordered By: Nikia Henderson on 07-06-2024 Hematocrit (Bld) [Volume fraction] 34.4 % Low 37-47 [facility] Automated blood hematocrit (percentage) 34.4 % Low 37-47 [facility] Hemoglobin measurementOrdere d By: Nikia Henderson on 07-06-2024 Hemoglobin (Bld) [Mass/Vol] 11.1 g/dL Low 12.0-15. 0 [facility] Hemoglobin measurement 11.1 g/dL Low 12.0-15.0 [facility] Immature granulocytes/100 WB C Auto (Bld)Ordered By: Nikia Henderson on 07-06-2024 Immature granulocytes/100 WBC (Bld) 1.300 % High 0.0-0.9 [facility] Comment on above: IG% - Immature Granu locytes (promyelocytes, myelocytes and metamyelocytes) > 1% indicates that a LEFT SHIFT is Present. Automated immature granulocyte percentage 1.300 % High 0.0-0.9 [facility] Lymphocytes Auto (Unsp spec) [#/Vol]Ordered By: Nikia Henderson on 07-06-2024 Lymphocytes (Bld) [#/Vol] 1.68 10*3/uL 0.83-4.5 1 [facility] Absolute lymphocyte count 1.68 X10^3/uL 0.83-4. 51 [facility] Lymphocytes/100 WBC Auto (Un sp spec)Ordered By: Nikia Henderson on 07-06-2024 Lymphocytes/100 WBC (Bld) 25.1 % [facility] Automated lymphocyte count as percentage of total leukocytes 25.1 % [facility] MCV (RBC) [Entitic vol]Order ed By: Nikia Henderson on 07-06-2024 MCV (mean corpuscular volume) determination 103.6 fL High 81-99 [facility] MCV (mean corpuscular volume ) determinationOrdered By: Nikia Henderson on 07-06-2024 MCV (RBC) [Entitic vol] 103.6 fL High 81-99 [facility] Mean corpuscular hemoglobin (MCH) determinationOrdered By: Nikia Henderson on 07-06-2024 MCH (RBC) [Entitic mass] 33.4 pg High 27.0-32.0 [facility] Mean corpuscular hemoglobin (MCH) determination 33.4 pg High 27.0-32.0 [facility] Mean corpuscular hemoglobin concentration (MCHC) determinationOrdered By: Nikia Henderson on 07-06-2024 MCHC (RBC) [Mass/Vol] 32.3 g/dL 32-36 [facility] Mean corpuscular hemoglobin concentration (MCHC) determination 32.3 g/dL -36 [facility] Mean platelet volume determi nationOrdered By: Nikia Henderson on 07-06-2024 Platelet mean volume (Bld) [Entitic vol] 9.4 fL 6.2-12.0 [facility] Mean platelet volume determination 9.4 fl 6.2-12.0 [facility] Monocyte percentageOrdered B y: Nikia Henderson on 07-06-2024 Monocytes/100 WBC (Bld) 10.8 % High 0-10 [facility] Monocyte percentage 10.8 % High 0-[address] [facility] Neutrophil percentageOrdered By: Nikia Henderson on 07-06-2024 Neutrophils/100 WBC (Bld) 59.4 % 47-70 [facility] Neutrophil percentage 59.4 % 47-70 [facility] Nucleated red blood cell per centageOrdered By: Nikia Henderson on 07-06-2024 Nucleated RBC/100 WBC (Bld) [Ratio] 0 % 0-5 [facility] Nucleated red blood cell percentage 0 % 0-5 [facility] Platelet countOrdered By: Cecilia Henderson on 07-06-2024 Platelets (Bld) [#/Vol] 299 10*3/uL 150-450 [facility] Platelet count 299 K/mm3 150-450 [facility] Potassium (Unsp spec) [Mass/ Vol]Ordered By: Nikia Henderson on 07-06-2024 Potassium [Moles/Vol] 4.3 mmol/L 3.3-5.1 [facility] Potassium measurement (mass/volume) 4.3 mmol/L 3.3-5.1 [facility] Potassium measurement (mass/ volume)Ordered By: Nikia Henderson on 07-06-2024 Potassium (Unsp spec) [Mass/Vol] 4.3 mmol/L 3.3-5.1 [facility] RBC Auto (Bld) [#/Vol]Ordere d By: Nikia Henderson on 07-06-2024 RBC (Bld) [#/Vol] 3.32 10*6/uL Low 4.2-5.[address] [facility] Automated blood erythrocyte count 3.32 M/mm3 Low 4.2-5.4 [facility] Serum creatinine measurement (mass/volume)Ordered By: Nikia Henderson on 07-06-2024 Creatinine [Mass/Vol] 0.76 mg/dL 0.70-1.20 [facility] Serum glucose measurement (m ass/volume)Ordered By: Nikia Henderson on 07-06-2024 Glucose [Mass/Vol] 90 mg/dL 70-99 [facility] Serum or plasma calcium gianluca urement (mass/volume)Ordered By: Nikia Henderson on 07-06-2024 Calcium [Mass/Vol] 8.8 mg/dL 7.6-11.0 [facility] Serum or plasma urea nitroge n measurement (mass/volume)Ordered By: Nikia Henderson on 07-06-2024 Urea nitrogen [Mass/Vol] 18 mg/dL 4- [facility] Sodium levelOrdered By: Catalina Henderson on 07-06-2024 Sodium [Moles/Vol] 140 mmol/L 133-145 [facility] Sodium level 140 mmol/L 133-145 [facility] Urea nitrogen [Mass/Vol]Orde red By: Nikia Henderson on 07-06-2024 Serum or plasma urea nitrogen measurement (mass/volume) 18 mg/dL 4-19 [facility] White blood cell (WBC) count Ordered By: Nikia Henderson on 07-06-2024 WBC (Bld) [#/Vol] 6.7 10*3/uL 4.4-11.0 [facility] White blood cell (WBC) count 6.7 K/mm3 4.4-11.0 [facility] Absolute lymphocyte countOrd ered By: Audra Drake on 06-29-2024 Lymphocytes Auto (Unsp spec) [#/Vol] 1.28 10*3/uL 0.83-4.51 [facility] Absolute neutrophil countOrd ered By: Audra Drake on 06-29-2024 Neutrophils (Bld) [#/Vol] 4.0 10*3/uL 2.0-7.7 [facility] Absolute neutrophil count 4.0 X10^3/uL 2.0-7.7 [facility] Anion gap [Moles/Vol]Ordered By: Audra Drake on 06-29-2024 Anion gap in Serum or Plasma 10 5-15 [facility] Anion gap in Serum or Plasma Ordered By: Audra Drake on 06-29-2024 Anion gap [Moles/Vol] 10 mmol/L 5-15 [facility] Automated lymphocyte count a s percentage of total leukocytesOrdered By: Audra Drake on 06-29-2024 Lymphocytes/100 WBC Auto (Unsp spec) 20.1 % 19-41 [facility] BUN/creatinine ratioOrdered By: Audra Drake on 06-29-2024 Urea nitrogen/Creatinine [Mass ratio] 18.5 mg/mg 10-20 [facility] BUN/creatinine ratio 18.5 RATIO 10-20 [facility] Basophil percentageOrdered B y: Audra Drake on 06-29-2024 Basophils/100 WBC (Bld) 0.9 % 0-1 [facility] Basophil percentage 0.9 % 0-[address] [facility] Calcium [Mass/Vol]Ordered By : Audra Drake on 06-29-2024 Serum or plasma calcium measurement (mass/volume) 9.0 mg/dL 7.6-11.0 [facility] Carbon dioxide, total [Moles /volume] in Central venous bloodOrdered By: Audra Drake on 06-29-2024 CO2 [Moles/Vol] 21.5 mmol/L 21.0-32.0 [facility] Carbon dioxide, total [Moles/volume] in Central venous blood 21.5 mmol/L 21.0-32.0 [facility] Chloride assayOrdered By: Dimitris Drake on 06-29-2024 Chloride [Moles/Vol] 109 mmol/L High 98-108 [facility] Chloride assay 109 mmol/L High 98-108 [facility] Creatinine [Mass/Vol]Ordered By: Audra Drake on 06-29-2024 Serum creatinine measurement (mass/volume) 0.65 mg/dL Low 0.70-1.20 [facility] Eosinophil percentageOrdered By: Audra Drake on 06-29-2024 Eosinophils/100 WBC (Bld) 2.5 % 0-5 [facility] Eosinophil percentage 2.5 % 0-5 [facility] Erythrocyte distribution wid th (RBC) [Ratio]Ordered By: Audra Drake on 06-29-2024 Erythrocyte distribution width ratio 14.0 % 11.6-14.6 [facility] Erythrocyte distribution width (RBC) [Entitic vol] 51.9 fL High 35.1-43.9 [facility] Erythrocyte distribution width standard deviation 51.9 fl High 35.1-43.9 [facility] Erythrocyte distribution wid th ratioOrdered By: Audra Drake on 06-29-2024 Erythrocyte distribution width (RBC) [Ratio] 14.0 % 11.6-14.6 [facility] Erythrocyte distribution wid th standard deviationOrdered By: Audra Drake on 06-29-2024 Erythrocyte distribution width (RBC) [Ratio] 51.9 fl High 35.1-43.9 [facility] GFR/1.73 sq M.predicted viji g non-blacks MDRD (S/P/Bld) [Vol rate/Area]Ordered By: Audra Darke on 06-29-2024 Estimated GFR (MDRD) Non-Af Amer 90 >60 [facility] Comment on above: mL/min/1.73m2 CKD-EP I Creatinine Equation (2020) Glomerular filtration rate (GFR) estimation/1.73 sq m using serum, plasma, or whole b 90 >60 [facility] Glomerular filtration rate ( GFR) estimation/1.73 sq m using serum, plasma, or whole bOrdered By: Audra Drake on 06-29-2024 GFR/1.73 sq M.predicted among non-blacks MDRD (S/P/Bld) [Vol rate/Area] 90 mL/min/{1.73_m2} >60 [facility] Glucose [Mass/Vol]Ordered By : Audra Drake on 06-29-2024 Serum glucose measurement (mass/volume) 84 mg/dL 70-99 [facility] Hematocrit Auto (Bld) [Volum e fraction]Ordered By: Audra Drake on 06-29-2024 Hematocrit (Bld) [Volume fraction] 35.7 % Low 37-47 [facility] Automated blood hematocrit (percentage) 35.7 % Low 37-47 [facility] Hemoglobin measurementOrdere d By: Audra Drake on 06-29-2024 Hemoglobin (Bld) [Mass/Vol] 11.5 g/dL Low 12.0-15. 0 [facility] Hemoglobin measurement 11.5 g/dL Low 12.0-15.0 [facility] Immature granulocytes/100 WB C Auto (Bld)Ordered By: Audra Drake on 06-29-2024 Immature granulocytes/100 WBC (Bld) 1.100 % High 0.0-0.9 [facility] Comment on above: IG% - Immature Granu locytes (promyelocytes, myelocytes and metamyelocytes) > 1% indicates that a LEFT SHIFT is Present. Automated immature granulocyte percentage 1.100 % High 0.0-0.9 [facility] Lymphocytes Auto (Unsp spec) [#/Vol]Ordered By: Audra Drake on 06-29-2024 Lymphocytes (Bld) [#/Vol] 1.28 10*3/uL 0.83-4.5 1 [facility] Absolute lymphocyte count 1.28 X10^3/uL 0.83-4. 51 [facility] Lymphocytes/100 WBC Auto (Un sp spec)Ordered By: Audra Drake on 06-29-2024 Lymphocytes/100 WBC (Bld) 20.1 % [facility] Automated lymphocyte count as percentage of total leukocytes 20.1 % - [facility] MCV (RBC) [Entitic vol]Order ed By: Audra Drake on 06-29-2024 MCV (mean corpuscular volume) determination 99.7 fL High 81-99 [facility] MCV (mean corpuscular volume ) determinationOrdered By: Audra Drake on 06-29-2024 MCV (RBC) [Entitic vol] 99.7 fL High 81-99 [facility] Mean corpuscular hemoglobin (MCH) determinationOrdered By: Audra Drake on 06-29-2024 MCH (RBC) [Entitic mass] 32.1 pg High 27.0-32.0 [facility] Mean corpuscular hemoglobin (MCH) determination 32.1 pg High 27.0-32.0 [facility] Mean corpuscular hemoglobin concentration (MCHC) determinationOrdered By: Audra Drake on 06-29-2024 MCHC (RBC) [Mass/Vol] 32.2 g/dL -36 [facility] Mean corpuscular hemoglobin concentration (MCHC) determination 32.2 g/dL -36 [facility] Mean platelet volume determi nationOrdered By: Audra Drake on 06-29-2024 Platelet mean volume (Bld) [Entitic vol] 9.5 fL 6.2-12.0 [facility] Mean platelet volume determination 9.5 fl 6.2-12.0 [facility] Monocyte percentageOrdered B y: Audra Drake on 06-29-2024 Monocytes/100 WBC (Bld) 12.3 % High 0-10 [facility] Monocyte percentage 12.3 % High 0-[address] [facility] Neutrophil percentageOrdered By: Audra Drake on 06-29-2024 Neutrophils/100 WBC (Bld) 63.1 % 47-70 [facility] Neutrophil percentage 63.1 % 47-70 [facility] Nucleated red blood cell per centageOrdered By: Audra Drake on 06-29-2024 Nucleated RBC/100 WBC (Bld) [Ratio] 0 % 0-5 [facility] Nucleated red blood cell percentage 0 % 0-5 [facility] Platelet countOrdered By: Dimitris Drake on 06-29-2024 Platelets (Bld) [#/Vol] 307 10*3/uL 150-450 [facility] Platelet count 307 K/mm3 150-450 [facility] Potassium (Unsp spec) [Mass/ Vol]Ordered By: Audra Drake on 06-29-2024 Potassium [Moles/Vol] 4.4 mmol/L 3.3-5.1 [facility] Potassium measurement (mass/volume) 4.4 mmol/L 3.3-5.1 [facility] Potassium measurement (mass/ volume)Ordered By: Audra Drake on 06-29-2024 Potassium (Unsp spec) [Mass/Vol] 4.4 mmol/L 3.3-5.1 [facility] RBC Auto (Bld) [#/Vol]Ordere d By: Audra Drake on 06-29-2024 RBC (Bld) [#/Vol] 3.58 10*6/uL Low 4.2-5.[address] [facility] Automated blood erythrocyte count 3.58 M/mm3 Low 4.2-5.4 [facility] Serum creatinine measurement (mass/volume)Ordered By: Audra Drake on 06-29-2024 Creatinine [Mass/Vol] 0.65 mg/dL Low 0.70-1.20 [facility] Serum glucose measurement (m ass/volume)Ordered By: Audra Drake on 06-29-2024 Glucose [Mass/Vol] 84 mg/dL 70-99 [facility] Serum or plasma calcium gianluca urement (mass/volume)Ordered By: Audra Drake on 06-29-2024 Calcium [Mass/Vol] 9.0 mg/dL 7.6-11.0 [facility] Serum or plasma urea nitroge n measurement (mass/volume)Ordered By: Audra Drake on 06-29-2024 Urea nitrogen [Mass/Vol] 12 mg/dL 4- [facility] Sodium levelOrdered By: Cony Drake on 06-29-2024 Sodium [Moles/Vol] 140 mmol/L 133-145 [facility] Sodium level 140 mmol/L 133-145 [facility] Urea nitrogen [Mass/Vol]Orde red By: Audra Drake on 06-29-2024 Serum or plasma urea nitrogen measurement (mass/volume) 12 mg/dL 4-19 [facility] White blood cell (WBC) count Ordered By: Audra Drake on 06-29-2024 WBC (Bld) [#/Vol] 6.4 10*3/uL 4.4-11.0 [facility] White blood cell (WBC) count 6.4 K/mm3 4.4-11.0 [facility] Absolute lymphocyte countOrd ered By: Audra Drake on 06-22-2024 Lymphocytes Auto (Unsp spec) [#/Vol] 1.15 10*3/uL 0.83-4.51 [facility] Absolute neutrophil countOrd ered By: Audra Drake on 06-22-2024 Neutrophils (Bld) [#/Vol] 4.9 10*3/uL 2.0-7.7 [facility] Absolute neutrophil count 4.9 X10^3/uL 2.0-7.7 [facility] Anion gap [Moles/Vol]Ordered By: Audra Drake on 06-22-2024 Anion gap in Serum or Plasma 11 5-15 [facility] Anion gap in Serum or Plasma Ordered By: Audra Drake on 06-22-2024 Anion gap [Moles/Vol] 11 mmol/L 5-15 [facility] Automated lymphocyte count a s percentage of total leukocytesOrdered By: Audra Drake on 06-22-2024 Lymphocytes/100 WBC Auto (Unsp spec) 16.2 % Low 19-41 [facility] BUN/creatinine ratioOrdered By: Audra Drake on 06-22-2024 Urea nitrogen/Creatinine [Mass ratio] 18.7 mg/mg 10-20 [facility] BUN/creatinine ratio 18.7 RATIO 10-20 [facility] Basophil percentageOrdered B y: Audra Drake on 06-22-2024 Basophils/100 WBC (Bld) 0.6 % 0-1 [facility] Basophil percentage 0.6 % 0-[address] [facility] Calcium [Mass/Vol]Ordered By : Audra Drake on 06-22-2024 Serum or plasma calcium measurement (mass/volume) 8.6 mg/dL 7.6-11.0 [facility] Carbon dioxide, total [Moles /volume] in Central venous bloodOrdered By: Audra Drake on 06-22-2024 CO2 [Moles/Vol] 19.5 mmol/L Low 21.0-32.0 [facility] Carbon dioxide, total [Moles/volume] in Central venous blood 19.5 mmol/L Low 21.0-32.0 [facility] Chloride assayOrdered By: Dimitris Drake on 06-22-2024 Chloride [Moles/Vol] 107 mmol/L 98-108 [facility] Chloride assay 107 mmol/L 98-108 [facility] Creatinine [Mass/Vol]Ordered By: Audra Drake on 06-22-2024 Serum creatinine measurement (mass/volume) 0.78 mg/dL 0.70-1.20 [facility] Eosinophil percentageOrdered By: Audra Drake on 06-22-2024 Eosinophils/100 WBC (Bld) 2.3 % 0-5 [facility] Eosinophil percentage 2.3 % 0-5 [facility] Erythrocyte distribution wid th (RBC) [Ratio]Ordered By: Audra Drake on 06-22-2024 Erythrocyte distribution width ratio 13.9 % 11.6-14.6 [facility] Erythrocyte distribution width (RBC) [Entitic vol] 51.1 fL High 35.1-43.9 [facility] Erythrocyte distribution width standard deviation 51.1 fl High 35.1-43.9 [facility] Erythrocyte distribution wid th ratioOrdered By: Audra Drake on 06-22-2024 Erythrocyte distribution width (RBC) [Ratio] 13.9 % 11.6-14.6 [facility] Erythrocyte distribution wid th standard deviationOrdered By: Aurda Drake on 06-22-2024 Erythrocyte distribution width (RBC) [Ratio] 51.1 fl High 35.1-43.9 [facility] GFR/1.73 sq M.predicted viji g non-blacks MDRD (S/P/Bld) [Vol rate/Area]Ordered By: Audra Drake on 06-22-2024 Estimated GFR (MDRD) Non-Af Amer 78 >60 [facility] Comment on above: mL/min/1.73m2 CKD-EP I Creatinine Equation (2020) Glomerular filtration rate (GFR) estimation/1.73 sq m using serum, plasma, or whole b 78 >60 [facility] Glomerular filtration rate ( GFR) estimation/1.73 sq m using serum, plasma, or whole bOrdered By: Audra Drake on 06-22-2024 GFR/1.73 sq M.predicted among non-blacks MDRD (S/P/Bld) [Vol rate/Area] 78 mL/min/{1.73_m2} >60 [facility] Glucose [Mass/Vol]Ordered By : Audra Drake on 06-22-2024 Serum glucose measurement (mass/volume) 91 mg/dL 70-99 [facility] Hematocrit Auto (Bld) [Volum e fraction]Ordered By: Audra Drake on 06-22-2024 Hematocrit (Bld) [Volume fraction] 35.7 % Low 37-47 [facility] Automated blood hematocrit (percentage) 35.7 % Low 37-47 [facility] Hemoglobin measurementOrdere d By: Audra Drake on 06-22-2024 Hemoglobin (Bld) [Mass/Vol] 11.6 g/dL Low 12.0-15. 0 [facility] Hemoglobin measurement 11.6 g/dL Low 12.0-15.0 [facility] Immature granulocytes/100 WB C Auto (Bld)Ordered By: Audra Drake on 06-22-2024 Immature granulocytes/100 WBC (Bld) 1.100 % High 0.0-0.9 [facility] Comment on above: IG% - Immature Granu locytes (promyelocytes, myelocytes and metamyelocytes) > 1% indicates that a LEFT SHIFT is Present. Automated immature granulocyte percentage 1.100 % High 0.0-0.9 [facility] Lymphocytes Auto (Unsp spec) [#/Vol]Ordered By: Audra Drake on 06-22-2024 Lymphocytes (Bld) [#/Vol] 1.15 10*3/uL 0.83-4.5 1 [facility] Absolute lymphocyte count 1.15 X10^3/uL 0.83-4. 51 [facility] Lymphocytes/100 WBC Auto (Un sp spec)Ordered By: Audra Drake on 06-22-2024 Lymphocytes/100 WBC (Bld) 16.2 % Low 19-41 [facility] Automated lymphocyte count as percentage of total leukocytes 16.2 % Low 19-41 [facility] MCV (RBC) [Entitic vol]Order ed By: Audra Drake on 06-22-2024 MCV (mean corpuscular volume) determination 100.3 fL High 81-99 [facility] MCV (mean corpuscular volume ) determinationOrdered By: Audra Drake on 06-22-2024 MCV (RBC) [Entitic vol] 100.3 fL High 81-99 [facility] Mean corpuscular hemoglobin (MCH) determinationOrdered By: Audra Drake on 06-22-2024 MCH (RBC) [Entitic mass] 32.6 pg High 27.0-32.0 [facility] Mean corpuscular hemoglobin (MCH) determination 32.6 pg High 27.0-32.0 [facility] Mean corpuscular hemoglobin concentration (MCHC) determinationOrdered By: Audra Drake on 06-22-2024 MCHC (RBC) [Mass/Vol] 32.5 g/dL 32-36 [facility] Mean corpuscular hemoglobin concentration (MCHC) determination 32.5 g/dL 32-36 [facility] Mean platelet volume determi nationOrdered By: Audra Drake on 06-22-2024 Platelet mean volume (Bld) [Entitic vol] 9.9 fL 6.2-12.0 [facility] Mean platelet volume determination 9.9 fl 6.2-12.0 [facility] Monocyte percentageOrdered B y: Audra Drake on 06-22-2024 Monocytes/100 WBC (Bld) 11.0 % High 0-10 [facility] Monocyte percentage 11.0 % High 0-[address] [facility] Neutrophil percentageOrdered By: Audra Drake on 06-22-2024 Neutrophils/100 WBC (Bld) 68.8 % 47-70 [facility] Neutrophil percentage 68.8 % 47-70 [facility] Nucleated red blood cell per centageOrdered By: Audra Drake on 06-22-2024 Nucleated RBC/100 WBC (Bld) [Ratio] 0 % 0-5 [facility] Nucleated red blood cell percentage 0 % 0-5 [facility] Platelet countOrdered By: Dimitris Drake on 06-22-2024 Platelets (Bld) [#/Vol] 235 10*3/uL 150-450 [facility] Platelet count 235 K/mm3 150-450 [facility] Potassium (Unsp spec) [Mass/ Vol]Ordered By: Audra Drake on 06-22-2024 Potassium [Moles/Vol] 4.4 mmol/L 3.3-5.1 [facility] Potassium measurement (mass/volume) 4.4 mmol/L 3.3-5.1 [facility] Potassium measurement (mass/ volume)Ordered By: Audra Drake on 06-22-2024 Potassium (Unsp spec) [Mass/Vol] 4.4 mmol/L 3.3-5.1 [facility] RBC Auto (Bld) [#/Vol]Ordere d By: Audra Drake on 06-22-2024 RBC (Bld) [#/Vol] 3.56 10*6/uL Low 4.2-5.[address] [facility] Automated blood erythrocyte count 3.56 M/mm3 Low 4.2-5.4 [facility] Serum creatinine measurement (mass/volume)Ordered By: Audra Drake on 06-22-2024 Creatinine [Mass/Vol] 0.78 mg/dL 0.70-1.20 [facility] Serum glucose measurement (m ass/volume)Ordered By: Audra Drake on 06-22-2024 Glucose [Mass/Vol] 91 mg/dL 70-99 [facility] Serum or plasma calcium gianluca urement (mass/volume)Ordered By: Audra Drake on 06-22-2024 Calcium [Mass/Vol] 8.6 mg/dL 7.6-11.0 [facility] Serum or plasma urea nitroge n measurement (mass/volume)Ordered By: Audra Drake on 06-22-2024 Urea nitrogen [Mass/Vol] 15 mg/dL 4- [facility] Sodium levelOrdered By: Cony Drake on 06-22-2024 Sodium [Moles/Vol] 138 mmol/L 133-145 [facility] Sodium level 138 mmol/L 133-145 [facility] Urea nitrogen [Mass/Vol]Orde red By: Audra Drake on 06-22-2024 Serum or plasma urea nitrogen measurement (mass/volume) 15 mg/dL 4- [facility] White blood cell (WBC) count Ordered By: Audra Drake on 06-22-2024 WBC (Bld) [#/Vol] 7.1 10*3/uL 4.4-11.0 [facility] White blood cell (WBC) count 7.1 K/mm3 4.4-11.0 [facility] Absolute lymphocyte countOrd ered By: Nikia Henderson on 06-15-2024 Lymphocytes Auto (Unsp spec) [#/Vol] 1.51 10*3/uL 0.83-4.51 [facility] Absolute neutrophil countOrd ered By: Nikia Henderson on 06-15-2024 Neutrophils (Bld) [#/Vol] 2.2 10*3/uL 2.0-7.7 [facility] Absolute neutrophil count 2.2 X10^3/uL 2.0-7.7 [facility] Anion gap [Moles/Vol]Ordered By: Nikia Henderson on 03-18-2025 Anion gap in Serum or Plasma 11 5-15 [facility] Anion gap in Serum or Plasma Ordered By: Nikia Henderson on 06-15-2024 Anion gap [Moles/Vol] 11 mmol/L 5-15 [facility] Automated lymphocyte count a s percentage of total leukocytesOrdered By: Nikia Henderson on 06-15-2024 Lymphocytes/100 WBC Auto (Unsp spec) 34.6 % 19-41 [facility] BUN/creatinine ratioOrdered By: Nikia Henderson on 06-15-2024 Urea nitrogen/Creatinine [Mass ratio] 22.9 mg/mg High 10-20 [facility] BUN/creatinine ratio 22.9 RATIO High 10-20 [facility] Basophil percentageOrdered B y: Nikia Henderson on 06-15-2024 Basophils/100 WBC (Bld) 0.5 % 0-1 [facility] Basophil percentage 0.5 % 0-[address] [facility] Calcium [Mass/Vol]Ordered By : Nikia Henderson on 06-15-2024 Serum or plasma calcium measurement (mass/volume) 8.7 mg/dL 7.6-11.0 [facility] Carbon dioxide, total [Moles /volume] in Central venous bloodOrdered By: Nikia Henderson on 06-15-2024 CO2 [Moles/Vol] 20.2 mmol/L Low 21.0-32.0 [facility] Carbon dioxide, total [Moles/volume] in Central venous blood 20.2 mmol/L Low 21.0-32.0 [facility] Chloride assayOrdered By: Cecilia Henderson on 06-15-2024 Chloride [Moles/Vol] 111 mmol/L High 98-108 [facility] Chloride assay 111 mmol/L High 98-108 [facility] Creatinine [Mass/Vol]Ordered By: Nikia Henderson on 06-15-2024 Serum creatinine measurement (mass/volume) 0.65 mg/dL Low 0.70-1.20 [facility] Eosinophil percentageOrdered By: Nikia Henderson on 06-15-2024 Eosinophils/100 WBC (Bld) 2.1 % 0-5 [facility] Eosinophil percentage 2.1 % 0-5 [facility] Erythrocyte distribution wid th (RBC) [Ratio]Ordered By: Nikia Henderson on 06-15-2024 Erythrocyte distribution width ratio 14.2 % 11.6-14.6 [facility] Erythrocyte distribution width (RBC) [Entitic vol] 52.7 fL High 35.1-43.9 [facility] Erythrocyte distribution width standard deviation 52.7 fl High 35.1-43.9 [facility] Erythrocyte distribution wid th ratioOrdered By: Nikia Henderson on 06-15-2024 Erythrocyte distribution width (RBC) [Ratio] 14.2 % 11.6-14.6 [facility] Erythrocyte distribution wid th standard deviationOrdered By: Nikia Henderson on 06-15-2024 Erythrocyte distribution width (RBC) [Ratio] 52.7 fl High 35.1-43.9 [facility] GFR/1.73 sq M.predicted viji g non-blacks MDRD (S/P/Bld) [Vol rate/Area]Ordered By: Nikia Henderson on 06-15-2024 Estimated GFR (MDRD) Non-Af Amer 90 >60 [facility] Comment on above: mL/min/1.73m2 CKD-EP I Creatinine Equation (2020) Glomerular filtration rate (GFR) estimation/1.73 sq m using serum, plasma, or whole b 90 >60 [facility] Glomerular filtration rate ( GFR) estimation/1.73 sq m using serum, plasma, or whole bOrdered By: Nikia Henderson on 06-15-2024 GFR/1.73 sq M.predicted among non-blacks MDRD (S/P/Bld) [Vol rate/Area] 90 mL/min/{1.73_m2} >60 [facility] Glucose [Mass/Vol]Ordered By : Nikia Henderson on 06-15-2024 Serum glucose measurement (mass/volume) 83 mg/dL 70-99 [facility] Hematocrit Auto (Bld) [Volum e fraction]Ordered By: Nikia Henderson 06-15-2024 Hematocrit (Bld) [Volume fraction] 39.1 % 37-47 [facility] Automated blood hematocrit (percentage) 39.1 % 37-47 [facility] Hemoglobin measurementOrdere d By: Nikia Henderson on 06-15-2024 Hemoglobin (Bld) [Mass/Vol] 12.4 g/dL 12.0-15. 0 [facility] Hemoglobin measurement 12.4 g/dL 12.0-15.0 [facility] Immature granulocytes/100 WB C Auto (Bld)Ordered By: Nikia Henderson on 06-15-2024 Immature granulocytes/100 WBC (Bld) 0.700 % 0.0-0.9 [facility] Comment on above: IG% - Immature Granu locytes (promyelocytes, myelocytes and metamyelocytes) > 1% indicates that a LEFT SHIFT is Present. Automated immature granulocyte percentage 0.700 % 0.0-0.9 [facility] Lymphocytes Auto (Unsp spec) [#/Vol]Ordered By: Nikia Henderson on 06-15-2024 Lymphocytes (Bld) [#/Vol] 1.51 10*3/uL 0.83-4.5 1 [facility] Absolute lymphocyte count 1.51 X10^3/uL 0.83-4. 51 [facility] Lymphocytes/100 WBC Auto (Un sp spec)Ordered By: Nikia Henderson on 06-15-2024 Lymphocytes/100 WBC (Bld) 34.6 % 19- [facility] Automated lymphocyte count as percentage of total leukocytes 34.6 % - [facility] MCV (RBC) [Entitic vol]Order ed By: Nikia Henderson on 06-15-2024 MCV (mean corpuscular volume) determination 100.8 fL High 81-99 [facility] MCV (mean corpuscular volume ) determinationOrdered By: Nikia Henderson on 06-15-2024 MCV (RBC) [Entitic vol] 100.8 fL High 81-99 [facility] Mean corpuscular hemoglobin (MCH) determinationOrdered By: Nikia Henderson on 06-15-2024 MCH (RBC) [Entitic mass] 32.0 pg 27.0-32.0 [facility] Mean corpuscular hemoglobin (MCH) determination 32.0 pg 27.0-32.0 [facility] Mean corpuscular hemoglobin concentration (MCHC) determinationOrdered By: Nikia Henderson on 06-15-2024 MCHC (RBC) [Mass/Vol] 31.7 g/dL Low 32-36 [facility] Mean corpuscular hemoglobin concentration (MCHC) determination 31.7 g/dL Low 32-36 [facility] Mean platelet volume determi nationOrdered By: Nikia Henderson on 06-15-2024 Platelet mean volume (Bld) [Entitic vol] 9.6 fL 6.2-12.0 [facility] Mean platelet volume determination 9.6 fl 6.2-12.0 [facility] Monocyte percentageOrdered B y: Nikia Henderson on 06-15-2024 Monocytes/100 WBC (Bld) 11.5 % High 0-10 [facility] Monocyte percentage 11.5 % High 0-[address] [facility] Neutrophil percentageOrdered By: Nikia Henderson on 06-15-2024 Neutrophils/100 WBC (Bld) 50.6 % 47-70 [facility] Neutrophil percentage 50.6 % 47-70 [facility] Nucleated red blood cell per centageOrdered By: Nikia Henderson on 06-15-2024 Nucleated RBC/100 WBC (Bld) [Ratio] 0 % 0-5 [facility] Nucleated red blood cell percentage 0 % 0-5 [facility] Platelet countOrdered By: Cecilia Henderson on 06-15-2024 Platelets (Bld) [#/Vol] 215 10*3/uL 150-450 [facility] Platelet count 215 K/mm3 150-450 [facility] Potassium (Unsp spec) [Mass/ Vol]Ordered By: Nikia Henderson on 06-15-2024 Potassium [Moles/Vol] 4.7 mmol/L 3.3-5.1 [facility] Comment on above: Hemolysis present, R esults could be affected. Potassium measurement (mass/volume) 4.7 mmol/L 3.3-5.1 [facility] Potassium measurement (mass/ volume)Ordered By: Nikia Henderson on 06-15-2024 Potassium (Unsp spec) [Mass/Vol] 4.7 mmol/L 3.3-5.1 [facility] RBC Auto (Bld) [#/Vol]Ordere d By: Nikia Henderson on 06-15-2024 RBC (Bld) [#/Vol] 3.88 10*6/uL Low 4.2-5.[address] [facility] Automated blood erythrocyte count 3.88 M/mm3 Low 4.2-5.4 [facility] Serum creatinine measurement (mass/volume)Ordered By: Nikia Henderson on 06-15-2024 Creatinine [Mass/Vol] 0.65 mg/dL Low 0.70-1.20 [facility] Serum glucose measurement (m ass/volume)Ordered By: Nikia Henderson on 06-15-2024 Glucose [Mass/Vol] 83 mg/dL 70-99 [facility] Serum or plasma calcium gianluca urement (mass/volume)Ordered By: Nikia Henderson on 06-15-2024 Calcium [Mass/Vol] 8.7 mg/dL 7.6-11.0 [facility] Serum or plasma urea nitroge n measurement (mass/volume)Ordered By: Nikia Henderson on 06-15-2024 Urea nitrogen [Mass/Vol] 15 mg/dL - [facility] Sodium levelOrdered By: Catalina Henderson on 06-15-2024 Sodium [Moles/Vol] 142 mmol/L 133-145 [facility] Sodium level 142 mmol/L 133-145 [facility] Urea nitrogen [Mass/Vol]Orde red By: Nikia Henderson on 06-15-2024 Serum or plasma urea nitrogen measurement (mass/volume) 15 mg/dL - [facility] White blood cell (WBC) count Ordered By: Nikia Henderson on 06-15-2024 WBC (Bld) [#/Vol] 4.4 10*3/uL 4.4-11.0 [facility] White blood cell (WBC) count 4.4 K/mm3 4.4-11.0 [facility] Absolute lymphocyte countOrd ered By: Nikia Henderson on 06-08-2024 Lymphocytes Auto (Unsp spec) [#/Vol] 1.41 10*3/uL 0.83-4.51 [facility] Absolute neutrophil countOrd ered By: Nikia Henderson on 06-08-2024 Neutrophils (Bld) [#/Vol] 3.7 10*3/uL 2.0-7.7 [facility] Absolute neutrophil count 3.7 X10^3/uL 2.0-7.7 [facility] Anion gap [Moles/Vol]Ordered By: Nikia Henderson on 06-08-2024 Anion gap in Serum or Plasma 10 5- [facility] Anion gap in Serum or Plasma Ordered By: Nikia Henderson on 06-08-2024 Anion gap [Moles/Vol] 10 mmol/L - [facility] Automated lymphocyte count a s percentage of total leukocytesOrdered By: Nikia Henderson on 06-08-2024 Lymphocytes/100 WBC Auto (Unsp spec) 23.7 % 19-41 [facility] BUN/creatinine ratioOrdered By: Nikia Henderson on 06-08-2024 Urea nitrogen/Creatinine [Mass ratio] 29.4 mg/mg High 10-20 [facility] BUN/creatinine ratio 29.4 RATIO High 10-20 [facility] Basophil percentageOrdered B y: Nikia Henderson on 06-08-2024 Basophils/100 WBC (Bld) 0.3 % 0-1 [facility] Basophil percentage 0.3 % 0-[address] [facility] Calcium [Mass/Vol]Ordered By : Nikia Henderson on 06-08-2024 Serum or plasma calcium measurement (mass/volume) 8.9 mg/dL 7.6-11.0 [facility] Carbon dioxide, total [Moles /volume] in Central venous bloodOrdered By: Nikia Henderson on 06-08-2024 CO2 [Moles/Vol] 21.5 mmol/L 21.0-32.0 [facility] Carbon dioxide, total [Moles/volume] in Central venous blood 21.5 mmol/L 21.0-32.0 [facility] Chloride assayOrdered By: Cecilia Henderson on 06-08-2024 Chloride [Moles/Vol] 110 mmol/L High 98-108 [facility] Chloride assay 110 mmol/L High 98-108 [facility] Creatinine [Mass/Vol]Ordered By: Nikia Henderson on 06-08-2024 Serum creatinine measurement (mass/volume) 0.68 mg/dL Low 0.70-1.20 [facility] Eosinophil percentageOrdered By: Nikia Henderson on 06-08-2024 Eosinophils/100 WBC (Bld) 3.2 % 0-5 [facility] Eosinophil percentage 3.2 % 0-5 [facility] Erythrocyte distribution wid th (RBC) [Ratio]Ordered By: Nikia Henderson on 06-08-2024 Erythrocyte distribution width ratio 14.5 % 11.6-14.6 [facility] Erythrocyte distribution width (RBC) [Entitic vol] 53.2 fL High 35.1-43.9 [facility] Erythrocyte distribution width standard deviation 53.2 fl High 35.1-43.9 [facility] Erythrocyte distribution wid th ratioOrdered By: Nikia Henderson on 06-08-2024 Erythrocyte distribution width (RBC) [Ratio] 14.5 % 11.6-14.6 [facility] Erythrocyte distribution wid th standard deviationOrdered By: Nikia Henderson on 06-08-2024 Erythrocyte distribution width (RBC) [Ratio] 53.2 fl High 35.1-43.9 [facility] GFR/1.73 sq M.predicted viji g non-blacks MDRD (S/P/Bld) [Vol rate/Area]Ordered By: Nikia Henderson on 06-08-2024 Estimated GFR (MDRD) Non-Af Amer 89 >60 [facility] Comment on above: mL/min/1.73m2 CKD-EP I Creatinine Equation (2020) Glomerular filtration rate (GFR) estimation/1.73 sq m using serum, plasma, or whole b 89 >60 [facility] Glomerular filtration rate ( GFR) estimation/1.73 sq m using serum, plasma, or whole bOrdered By: Nikia Henderson on 06-08-2024 GFR/1.73 sq M.predicted among non-blacks MDRD (S/P/Bld) [Vol rate/Area] 89 mL/min/{1.73_m2} >60 [facility] Glucose [Mass/Vol]Ordered By : Nikia Henderson on 06-08-2024 Serum glucose measurement (mass/volume) 85 mg/dL 70-99 [facility] Hematocrit Auto (Bld) [Volum e fraction]Ordered By: Nikia Henderson on 06-08-2024 Hematocrit (Bld) [Volume fraction] 35.9 % Low 37-47 [facility] Automated blood hematocrit (percentage) 35.9 % Low 37-47 [facility] Hemoglobin measurementOrdere d By: Nikia Henderson on 06-08-2024 Hemoglobin (Bld) [Mass/Vol] 11.5 g/dL Low 12.0-15. 0 [facility] Hemoglobin measurement 11.5 g/dL Low 12.0-15.0 [facility] Immature granulocytes/100 WB C Auto (Bld)Ordered By: Nikia Henderson on 06-08-2024 Immature granulocytes/100 WBC (Bld) 0.300 % 0.0-0.9 [facility] Comment on above: IG% - Immature Granu locytes (promyelocytes, myelocytes and metamyelocytes) > 1% indicates that a LEFT SHIFT is Present. Automated immature granulocyte percentage 0.300 % 0.0-0.9 [facility] Lymphocytes Auto (Unsp spec) [#/Vol]Ordered By: Nikia Henderson on 06-08-2024 Lymphocytes (Bld) [#/Vol] 1.41 10*3/uL 0.83-4.5 1 [facility] Absolute lymphocyte count 1.41 X10^3/uL 0.83-4. 51 [facility] Lymphocytes/100 WBC Auto (Un sp spec)Ordered By: Nikia Henderson on 06-08-2024 Lymphocytes/100 WBC (Bld) 23.7 % [facility] Automated lymphocyte count as percentage of total leukocytes 23.7 % [facility] MCV (RBC) [Entitic vol]Order ed By: Nikia Henderson on 06-08-2024 MCV (mean corpuscular volume) determination 100.3 fL High 81-99 [facility] MCV (mean corpuscular volume ) determinationOrdered By: Nikia Henderson on 06-08-2024 MCV (RBC) [Entitic vol] 100.3 fL High 81-99 [facility] Mean corpuscular hemoglobin (MCH) determinationOrdered By: Nikia Henderson on 06-08-2024 MCH (RBC) [Entitic mass] 32.1 pg High 27.0-32.0 [facility] Mean corpuscular hemoglobin (MCH) determination 32.1 pg High 27.0-32.0 [facility] Mean corpuscular hemoglobin concentration (MCHC) determinationOrdered By: Nikia Henderson on 06-08-2024 MCHC (RBC) [Mass/Vol] 32.0 g/dL 32-36 [facility] Mean corpuscular hemoglobin concentration (MCHC) determination 32.0 g/dL 32-36 [facility] Mean platelet volume determi nationOrdered By: Nikia Henderson on 06-08-2024 Platelet mean volume (Bld) [Entitic vol] 9.4 fL 6.2-12.0 [facility] Mean platelet volume determination 9.4 fl 6.2-12.0 [facility] Monocyte percentageOrdered B y: Nikia Henderson on 06-08-2024 Monocytes/100 WBC (Bld) 9.4 % 0-10 [facility] Monocyte percentage 9.4 % 0-[address] [facility] Neutrophil percentageOrdered By: Nikia Henderson on 06-08-2024 Neutrophils/100 WBC (Bld) 63.1 % 47-70 [facility] Neutrophil percentage 63.1 % 47-70 [facility] Nucleated red blood cell per centageOrdered By: Nikia Henderson on 06-08-2024 Nucleated RBC/100 WBC (Bld) [Ratio] 0 % 0-5 [facility] Nucleated red blood cell percentage 0 % 0-5 [facility] Platelet countOrdered By: Cecilia Henderson on 03-11-2025 Platelets (Bld) [#/Vol] 244 10*3/uL 150-450 [facility] Platelet count 244 K/mm3 150-450 [facility] Potassium (Unsp spec) [Mass/ Vol]Ordered By: Nikia Henderson on 06-08-2024 Potassium [Moles/Vol] 4.3 mmol/L 3.3-5.1 [facility] Potassium measurement (mass/volume) 4.3 mmol/L 3.3-5.1 [facility] Potassium measurement (mass/ volume)Ordered By: Nikia Henderson on 06-08-2024 Potassium (Unsp spec) [Mass/Vol] 4.3 mmol/L 3.3-5.1 [facility] RBC Auto (Bld) [#/Vol]Ordere d By: Nikia Henderson on 06-08-2024 RBC (Bld) [#/Vol] 3.58 10*6/uL Low 4.2-5.[address] [facility] Automated blood erythrocyte count 3.58 M/mm3 Low 4.2-5.4 [facility] Serum creatinine measurement (mass/volume)Ordered By: Nikia Henderson on 06-08-2024 Creatinine [Mass/Vol] 0.68 mg/dL Low 0.70-1.20 [facility] Serum glucose measurement (m ass/volume)Ordered By: Nikia Henderson on 06-08-2024 Glucose [Mass/Vol] 85 mg/dL 70-99 [facility] Serum or plasma calcium gianluca urement (mass/volume)Ordered By: Nikia Henderson on 06-08-2024 Calcium [Mass/Vol] 8.9 mg/dL 7.6-11.0 [facility] Serum or plasma urea nitroge n measurement (mass/volume)Ordered By: Nikia Henderson on 06-08-2024 Urea nitrogen [Mass/Vol] 20 mg/dL High 4-19 [facility] Sodium levelOrdered By: Catalina Henderson on 06-08-2024 Sodium [Moles/Vol] 141 mmol/L 133-145 [facility] Sodium level 141 mmol/L 133-145 [facility] Urea nitrogen [Mass/Vol]Orde red By: Nikia Henderson on 06-08-2024 Serum or plasma urea nitrogen measurement (mass/volume) 20 mg/dL High 4-19 [facility] White blood cell (WBC) count Ordered By: Nikia Henderson on 06-08-2024 WBC (Bld) [#/Vol] 5.9 10*3/uL 4.4-11.0 [facility] White blood cell (WBC) count 5.9 K/mm3 4.4-11.0 [facility] Absolute lymphocyte countOrd ered By: Nikia Henderson on 06-01-2024 Lymphocytes Auto (Unsp spec) [#/Vol] 1.46 10*3/uL 0.83-4.51 [facility] Absolute neutrophil countOrd ered By: Nikia Henderson on 06-01-2024 Neutrophils (Bld) [#/Vol] 5.2 10*3/uL 2.0-7.7 [facility] Absolute neutrophil count 5.2 X10^3/uL 2.0-7.7 [facility] Anion gap [Moles/Vol]Ordered By: Nikia Henderson on 06-01-2024 Anion gap in Serum or Plasma 11 5-15 [facility] Anion gap in Serum or Plasma Ordered By: Nikia Henderson on 06-01-2024 Anion gap [Moles/Vol] 11 mmol/L 5-15 [facility] Automated lymphocyte count a s percentage of total leukocytesOrdered By: Nikia Henderson on 06-01-2024 Lymphocytes/100 WBC Auto (Unsp spec) 19.4 % 19-41 [facility] BUN/creatinine ratioOrdered By: Nikia Henderson on 06-01-2024 Urea nitrogen/Creatinine [Mass ratio] 30.2 mg/mg High 10-20 [facility] BUN/creatinine ratio 30.2 RATIO High 10-20 [facility] Basophil percentageOrdered B y: Nikia Henderson on 06-01-2024 Basophils/100 WBC (Bld) 0.7 % 0-1 [facility] Basophil percentage 0.7 % 0-[address] [facility] Calcium [Mass/Vol]Ordered By : Nikia Henderson on 06-01-2024 Serum or plasma calcium measurement (mass/volume) 9.0 mg/dL 7.6-11.0 [facility] Carbon dioxide, total [Moles /volume] in Central venous bloodOrdered By: Nikia Henderson on 06-01-2024 CO2 [Moles/Vol] 20.7 mmol/L Low 21.0-32.0 [facility] Carbon dioxide, total [Moles/volume] in Central venous blood 20.7 mmol/L Low 21.0-32.0 [facility] Chloride assayOrdered By: Cecilia guanakoterra Henderson on 06-01-2024 Chloride [Moles/Vol] 110 mmol/L High 98-108 [facility] Chloride assay 110 mmol/L High 98-108 [facility] Creatinine [Mass/Vol]Ordered By: Nikia Henderson on 06-01-2024 Serum creatinine measurement (mass/volume) 0.72 mg/dL 0.70-1.20 [facility] Eosinophil percentageOrdered By: Nikia Henderson on 06-01-2024 Eosinophils/100 WBC (Bld) 1.6 % 0-5 [facility] Eosinophil percentage 1.6 % 0-5 [facility] Erythrocyte distribution wid th (RBC) [Ratio]Ordered By: Nikia Henderson on 06-01-2024 Erythrocyte distribution width ratio 14.1 % 11.6-14.6 [facility] Erythrocyte distribution width (RBC) [Entitic vol] 51.8 fL High 35.1-43.9 [facility] Erythrocyte distribution width standard deviation 51.8 fl High 35.1-43.9 [facility] Erythrocyte distribution wid th ratioOrdered By: Catalinarocky pointheladio Henderson on 06-01-2024 Erythrocyte distribution width (RBC) [Ratio] 14.1 % 11.6-14.6 [facility] Erythrocyte distribution wid th standard deviationOrdered By: Nikia Henderson on 06-01-2024 Erythrocyte distribution width (RBC) [Ratio] 51.8 fl High 35.1-43.9 [facility] GFR/1.73 sq M.predicted viji g non-blacks MDRD (S/P/Bld) [Vol rate/Area]Ordered By: Nikia Henderson on 06-01-2024 Estimated GFR (MDRD) Non-Af Amer 86 >60 [facility] Comment on above: mL/min/1.73m2 CKD-EP I Creatinine Equation (2020) Glomerular filtration rate (GFR) estimation/1.73 sq m using serum, plasma, or whole b 86 >60 [facility] Glomerular filtration rate ( GFR) estimation/1.73 sq m using serum, plasma, or whole bOrdered By: Nikia Henderson on 06-01-2024 GFR/1.73 sq M.predicted among non-blacks MDRD (S/P/Bld) [Vol rate/Area] 86 mL/min/{1.73_m2} >60 [facility] Glucose [Mass/Vol]Ordered By : Nikia Henderson on 06-01-2024 Serum glucose measurement (mass/volume) 94 mg/dL 70-99 [facility] Hematocrit Auto (Bld) [Volum e fraction]Ordered By: Nikia Henderson on 06-01-2024 Hematocrit (Bld) [Volume fraction] 36.4 % Low 37-47 [facility] Automated blood hematocrit (percentage) 36.4 % Low 37-47 [facility] Hemoglobin measurementOrdere d By: Nikia Henderson on 06-01-2024 Hemoglobin (Bld) [Mass/Vol] 11.7 g/dL Low 12.0-15. 0 [facility] Hemoglobin measurement 11.7 g/dL Low 12.0-15.0 [facility] Immature granulocytes/100 WB C Auto (Bld)Ordered By: Nikia Henderson on 06-01-2024 Immature granulocytes/100 WBC (Bld) 0.400 % 0.0-0.9 [facility] Comment on above: IG% - Immature Granu locytes (promyelocytes, myelocytes and metamyelocytes) > 1% indicates that a LEFT SHIFT is Present. Automated immature granulocyte percentage 0.400 % 0.0-0.9 [facility] Lymphocytes Auto (Unsp spec) [#/Vol]Ordered By: Nikia Henderson on 03-04-2025 Lymphocytes (Bld) [#/Vol] 1.46 10*3/uL 0.83-4.5 1 [facility] Absolute lymphocyte count 1.46 X10^3/uL 0.83-4. 51 [facility] Lymphocytes/100 WBC Auto (Un sp spec)Ordered By: Nikia Henderson on 06-01-2024 Lymphocytes/100 WBC (Bld) 19.4 % - [facility] Automated lymphocyte count as percentage of total leukocytes 19.4 % -41 [facility] MCV (RBC) [Entitic vol]Order ed By: Nikia Henderson on 06-01-2024 MCV (mean corpuscular volume) determination 100.6 fL High 81-99 [facility] MCV (mean corpuscular volume ) determinationOrdered By: Nikia Henderson on 06-01-2024 MCV (RBC) [Entitic vol] 100.6 fL High 81-99 [facility] Mean corpuscular hemoglobin (MCH) determinationOrdered By: Nikia Henderson on 06-01-2024 MCH (RBC) [Entitic mass] 32.3 pg High 27.0-32.0 [facility] Mean corpuscular hemoglobin (MCH) determination 32.3 pg High 27.0-32.0 [facility] Mean corpuscular hemoglobin concentration (MCHC) determinationOrdered By: Nikia Henderson on 06-01-2024 MCHC (RBC) [Mass/Vol] 32.1 g/dL 32-36 [facility] Mean corpuscular hemoglobin concentration (MCHC) determination 32.1 g/dL -36 [facility] Mean platelet volume determi nationOrdered By: Nikia Henderson on 06-01-2024 Platelet mean volume (Bld) [Entitic vol] 9.8 fL 6.2-12.0 [facility] Mean platelet volume determination 9.8 fl 6.2-12.0 [facility] Monocyte percentageOrdered B y: Nikia Henderson on 06-01-2024 Monocytes/100 WBC (Bld) 8.5 % 0-10 [facility] Monocyte percentage 8.5 % 0-[address] [facility] Neutrophil percentageOrdered By: Nikia Henderson on 06-01-2024 Neutrophils/100 WBC (Bld) 69.4 % 47-70 [facility] Neutrophil percentage 69.4 % 47-70 [facility] Nucleated red blood cell per centageOrdered By: Nikia Henderson on 06-01-2024 Nucleated RBC/100 WBC (Bld) [Ratio] 0 % 0-5 [facility] Nucleated red blood cell percentage 0 % 0-5 [facility] Platelet countOrdered By: Cecilia Henderson on 06-01-2024 Platelets (Bld) [#/Vol] 234 10*3/uL 150-450 [facility] Platelet count 234 K/mm3 150-450 [facility] Potassium (Unsp spec) [Mass/ Vol]Ordered By: iNkia Henderson on 06-01-2024 Potassium [Moles/Vol] 4.4 mmol/L 3.3-5.1 [facility] Potassium measurement (mass/volume) 4.4 mmol/L 3.3-5.1 [facility] Potassium measurement (mass/ volume)Ordered By: Nikia Henderson on 06-01-2024 Potassium (Unsp spec) [Mass/Vol] 4.4 mmol/L 3.3-5.1 [facility] RBC Auto (Bld) [#/Vol]Ordere d By: Nikia Henderson on 06-01-2024 RBC (Bld) [#/Vol] 3.62 10*6/uL Low 4.2-5.[address] [facility] Automated blood erythrocyte count 3.62 M/mm3 Low 4.2-5.4 [facility] Serum creatinine measurement (mass/volume)Ordered By: Nikia Henderson on 06-01-2024 Creatinine [Mass/Vol] 0.72 mg/dL 0.70-1.20 [facility] Serum glucose measurement (m ass/volume)Ordered By: Nikia Henderson on 06-01-2024 Glucose [Mass/Vol] 94 mg/dL 70-99 [facility] Serum or plasma calcium gianluca urement (mass/volume)Ordered By: Nikia Henderson on 06-01-2024 Calcium [Mass/Vol] 9.0 mg/dL 7.6-11.0 [facility] Serum or plasma urea nitroge n measurement (mass/volume)Ordered By: Nikia Henderson on 06-01-2024 Urea nitrogen [Mass/Vol] 22 mg/dL High 07-17 [facility] Sodium levelOrdered By: Catalina Henderson on 06-01-2024 Sodium [Moles/Vol] 142 mmol/L 133-145 [facility] Sodium level 142 mmol/L 133-145 [facility] Urea nitrogen [Mass/Vol]Orde red By: Nikia Henderson on 06-01-2024 Serum or plasma urea nitrogen measurement (mass/volume) 22 mg/dL High 07-17 [facility] White blood cell (WBC) count Ordered By: Nikia Henderson on 06-01-2024 WBC (Bld) [#/Vol] 7.5 10*3/uL 4.4-11.0 [facility] White blood cell (WBC) count 7.5 K/mm3 4.4-11.0 [facility] Basic Metabolic Profile (BMP )on 05-28-2024 BUN Normal 7-18 [facility] Comment on above: Result Comment: Canc elled via OM: Order cancelled - Patient discharged Performed By: #### L 500.2500, L100.0100 ####[facility] [address] [place], [address] BUN/CRE Normal 10-20 [facility] Comment on above: Result Comment: Canc elled via OM: Order cancelled - Patient discharged Performed By: #### L 500.2500, L100.0100 ####[facility] [address] [place], [address] CA,Total Normal 8.5-10.1 [facility] Comment on above: Result Comment: Canc elled via OM: Order cancelled - Patient discharged Performed By: #### L 500.2500, L100.0100 ####[facility] [address] [place], [address] CL Normal 98-107 [facility] Comment on above: Result Comment: Canc elled via OM: Order cancelled - Patient discharged Performed By: #### L 500.2500, L100.0100 ####[facility] [address] [place], [address] CO2 Normal 21.0-32.0 [facility] Comment on above: Result Comment: Canc elled via OM: Order cancelled - Patient discharged Performed By: #### L 500.2500, L100.0100 ####[facility] [address] [place], [address] CREAT,SERUM Normal 0.55-1.02 [facility] Comment on above: Result Comment: Canc elled via OM: Order cancelled - Patient discharged Performed By: #### L 500.2500, L100.0100 ####[facility] [address] [place], [address] EST GFR Normal >60 [facility] Comment on above: Result Comment: Canc elled via OM: Order cancelled - Patient discharged Performed By: #### L 500.2500, L100.0100 ####[facility] [address] [place], [address] EST GFR - AA Normal >60 [facility] Comment on above: Result Comment: Canc elled via OM: Order cancelled - Patient discharged Performed By: #### L 500.2500, L100.0100 ####[facility] [address] [place], [address] GAP Normal 5-15 [facility] Comment on above: Result Comment: Canc elled via OM: Order cancelled - Patient discharged Performed By: #### L 500.2500, L100.0100 ####[facility] [address] [place], [address] GLU Normal 74-106 [facility] Comment on above: Result Comment: Canc elled via OM: Order cancelled - Patient discharged Performed By: #### L 500.2500, L100.0100 ####[facility] [address] [place], [address] Potassium Normal 3.5-5.1 [facility] Comment on above: Result Comment: Canc elled via OM: Order cancelled - Patient discharged Performed By: #### L 500.2500, L100.0100 ####[facility] [address] [place], [address] Basic Metabolic Profile (BMP) Normal 136-145 [facility] Comment on above: Result Comment: Canc elled via OM: Order cancelled - Patient discharged Performed By: #### L 500.2500, L100.0100 ####[facility] [address] [place], [address] CBC W/Diff, Automatedon 05-02 Absolute Neut Normal 2.0-7.7 [facility] Comment on above: Result Comment: Canc elled via OM: Order cancelled - Patient discharged Performed By: #### L 500.2500, L100.0100 ####[facility] [address] [place], [address] HCT Normal 37-47 [facility] Comment on above: Result Comment: Canc elled via OM: Order cancelled - Patient discharged Performed By: #### L 500.2500, L100.0100 ####[facility] [address] [place], [address] HGB Normal 12.0-15.0 [facility] Comment on above: Result Comment: Canc elled via OM: Order cancelled - Patient discharged Performed By: #### L 500.2500, L100.0100 ####[facility] [address] [place], [address] MCH Normal 27.0-32.0 [facility] Comment on above: Result Comment: Canc elled via OM: Order cancelled - Patient discharged Performed By: #### L 500.2500, L100.0100 ####[facility] [address] [place], [address] MCHC Normal 32-36 [facility] Comment on above: Result Comment: Canc elled via OM: Order cancelled - Patient discharged Performed By: #### L 500.2500, L100.0100 ####[facility] [address] [place], [address] MCV Normal 81-99 [facility] Comment on above: Result Comment: Canc elled via OM: Order cancelled - Patient discharged Performed By: #### L 500.2500, L100.0100 ####[facility] [address] [place], [address] NEUT% Normal 47-70 [facility] Comment on above: Result Comment: Canc elled via OM: Order cancelled - Patient discharged Performed By: #### L 500.2500, L100.0100 ####[facility] [address] [place], [address] PLT Normal 150-450 [facility] Comment on above: Result Comment: Canc elled via OM: Order cancelled - Patient discharged Performed By: #### L 500.2500, L100.0100 ####[facility] [address] [place], [address] RBC Normal 4.2-5.4 [facility] Comment on above: Result Comment: Canc elled via OM: Order cancelled - Patient discharged Performed By: #### L 500.2500, L100.0100 ####[facility] [address] [place], [address] RDW CV Normal 11.6-14.6 [facility] Comment on above: Result Comment: Canc elled via OM: Order cancelled - Patient discharged Performed By: #### L 500.2500, L100.0100 ####[facility] [address] [place], [address] RDW SD Normal 35.1-43.9 [facility] Comment on above: Result Comment: Canc elled via OM: Order cancelled - Patient discharged Performed By: #### L 500.2500, L100.0100 ####[facility] [address] [place], [address] WBC Normal 4.4-11.0 [facility] Comment on above: Result Comment: Canc elled via OM: Order cancelled - Patient discharged Performed By: #### L 500.2500, L100.0100 ####[facility] [address] [place], [address] Absolute lymphocyte countOrd ered By: Michael Sp on 05-21-2024 Lymphocytes Auto (Unsp spec) [#/Vol] 1.68 10*3/uL 0.83-4.51 [facility] Absolute neutrophil countOrd ered By: Michael Amezquitaok on 05-21-2024 Neutrophils (Bld) [#/Vol] 6.3 10*3/uL 2.0-7.7 [facility] Absolute neutrophil count 6.3 X10^3/uL 2.0-7.7 [facility] Automated lymphocyte count a s percentage of total leukocytesOrdered By: Michael Sp on 05-21-2024 Lymphocytes/100 WBC Auto (Unsp spec) 18.3 % Low 19-41 [facility] Basic Metabolic Profile (BMP )on 05-21-2024 BUN/CRE 39.8 RATIO High 10-20 [facility] Comment on above: Performed By: #### L 500.2500, L100.0100 ####[facility] [address] [place], [address] CA,Total 8.9 mg/dL Normal 8.5-10.1 [facility] Comment on above: Performed By: #### L 500.2500, L100.0100 ####[facility] [address] [place], [address] Chloride [Moles/Vol] 109 mmol/L High 98-107 [facility] Comment on above: Performed By: #### L 500.2500, L100.0100 ####[facility] [address] [place], [address] CO2 [Moles/Vol] 22.0 mmol/L Normal 21.0-32.0 [facility] Comment on above: Performed By: #### L 500.2500, L100.0100 ####[facility] [address] [place], [address] Creatinine [Mass/Vol] 0.80 mg/dL Normal 0.55-1.02 [facility] Comment on above: Result Comment: The validity of the calculated GFR GFRAA in patients over70 years has not been determined. Clinical correlation isessential. Performed By: #### L 500.2500, L100.0100 ####[facility] [address] [place], [address] ECRCL 50.86 ml/min Normal [facility] Comment on above: Performed By: #### L 500.2500, L100.0100 ####[facility] [address] [place], [address] EST GFR - AA 89 mL/min Normal >60 [facility] Comment on above: Result Comment: Afri can [place] GFR Calc Performed By: #### L 500.2500, L100.0100 ####[facility] [address] [place], [address] GAP 9 Normal 5-15 [facility] Comment on above: Performed By: #### L 500.2500, L100.0100 ####[facility] [address] [place], [address] GFR/1.73 sq M.predicted among non-blacks MDRD (S/P/Bld) [Vol rate/Area] 73 mL/min/{1.73_m2} Normal >60 [facility] Comment on above: Result Comment: Non- GFR Calc Performed By: #### L 500.2500, L100.0100 ####[facility] [address] [place], [address] Glucose [Mass/Vol] 85 mg/dL Normal 74-106 [facility] Comment on above: Performed By: #### L 500.2500, L100.0100 ####[facility] [address] [place], [address] Potassium [Moles/Vol] 5.1 mmol/L Normal 3.5-5.1 [facility] Comment on above: Performed By: #### L 500.2500, L100.0100 ####[facility] [address] [place], [address] Sodium [Moles/Vol] 140 mmol/L Normal 136-145 [facility] Comment on above: Performed By: #### L 500.2500, L100.0100 ####[facility] [address] [place], [address] Urea nitrogen [Mass/Vol] 32 mg/dL High -18 [facility] Comment on above: Performed By: #### L 500.2500, L100.0100 ####[facility] [address] [place], [address] Basophil percentageOrdered B y: Michael Snowden on 05-21-2024 Basophils/100 WBC (Bld) 0.1 % 0-1 [facility] Basophil percentage 0.1 % 0-[address] [facility] Blood urea nitrogen (BUN)/cr eatinine ratioOrdered By: Michael Snowden on 05-21-2024 Urea nitrogen/Creatinine [Mass ratio] 39.8 mg/mg High 01-17 [facility] Blood urea nitrogen (BUN)/creatinine ratio 39.8 RATIO High - [facility] CBC W/Diff, Automatedon 05-02 Absolute Lymph 1.68 X10 3/uL Normal 0.83-4.51 [facility] Comment on above: Performed By: #### L 500.2500, L100.0100 ####[facility] [address] [place], [address] Absolute Neut 6.3 X10 3/uL Normal 2.0-7.7 [facility] Comment on above: Performed By: #### L 500.2500, L100.0100 ####[facility] [address] [place], [address] Basophils/100 WBC (Bld) 0.1 % Normal 0-1 [facility] Comment on above: Performed By: #### L 500.2500, L100.0100 ####[facility] [address] [place], [address] Eosinophils/100 WBC (Bld) 0.4 % Normal 0-5 [facility] Comment on above: Performed By: #### L 500.2500, L100.0100 ####[facility] [address] [place], [address] Erythrocyte distribution width (RBC) [Ratio] 14.3 % Normal 11.6-14.6 [facility] Comment on above: Performed By: #### L 500.2500, L100.0100 ####[facility] [address] [place], [address] Hematocrit (Bld) [Volume fraction] 34.3 % Low 37-47 [facility] Comment on above: Performed By: #### L 500.2500, L100.0100 ####[facility] [address] [place], [address] Hemoglobin (Bld) [Mass/Vol] 11.0 g/dL Low 12.0-15. 0 [facility] Comment on above: Performed By: #### L 500.2500, L100.0100 ####[facility] [address] [place], [address] IG% 2.600 High 0.0-0.9 [facility] Comment on above: Result Comment: IG% - Immature Granulocytes (promyelocytes, myelocytes andmetamyelocytes) > 1% indicates that a LEFT SHIFT is Present. Performed By: #### L 500.2500, L100.0100 ####[facility] [address] [place], [address] Lymphocytes/100 WBC (Bld) 18.3 % Low 19-41 [facility] Comment on above: Performed By: #### L 500.2500, L100.0100 ####[facility] [address] [place], [address] MCH (RBC) [Entitic mass] 31.7 pg Normal 27.0-32.0 [facility] Comment on above: Performed By: #### L 500.2500, L100.0100 ####[facility] [address] [place], [address] MCHC (RBC) [Mass/Vol] 32.1 g/dL Normal 32-36 [facility] Comment on above: Performed By: #### L 500.2500, L100.0100 ####[facility] [address] [place], [address] MCV (RBC) [Entitic vol] 98.8 fL Normal 81-99 [facility] Comment on above: Performed By: #### L 500.2500, L100.0100 ####[facility] [address] [place], [address] Monocytes/100 WBC (Bld) 9.6 % Normal 0-10 [facility] Comment on above: Performed By: #### L 500.2500, L100.0100 ####[facility] [address] [place], [address] Neutrophils/100 WBC (Bld) 69.0 % Normal 47-70 [facility] Comment on above: Performed By: #### L 500.2500, L100.0100 ####[facility] [address] [place], [address] Nucleated RBC (Bld) [#/Vol] 0 10*3/uL Normal 0-5 [facility] Comment on above: Performed By: #### L 500.2500, L100.0100 ####[facility] [address] [place], [address] Platelet mean volume (Bld) [Entitic vol] 8.9 fL Normal 6.2-12.0 [facility] Comment on above: Performed By: #### L 500.2500, L100.0100 ####[facility] [address] [place], [address] Platelets (Bld) [#/Vol] 280 10*3/uL Normal 150-450 [facility] Comment on above: Performed By: #### L 500.2500, L100.0100 ####[facility] [address] [place], [address] RBC (Bld) [#/Vol] 3.47 10*6/uL Low 4.2-5.[address] [facility] Comment on above: Performed By: #### L 500.2500, L100.0100 ####[facility] [address] [place], [address] RDW SD 52.0 fl High 35.1-43.9 [facility] Comment on above: Performed By: #### L 500.2500, L100.0100 ####[facility] [address] [place], [address] WBC (Bld) [#/Vol] 9.2 10*3/uL Normal 4.4-11.0 [facility] Comment on above: Performed By: #### L 500.2500, L100.0100 ####[facility] [address] [place], [address] Calcium [Mass/Vol]Ordered By : Michael Snowden on 05-21-2024 Serum or plasma calcium measurement (mass/volume) 8.9 mg/dL 8.5-10.1 [facility] Carbon dioxide measurementOr dered By: Michael Snowden on 05-21-2024 CO2 [Moles/Vol] 22.0 mmol/L 21.0-32.0 [facility] Carbon dioxide measurement 22.0 mmol/L 21.0-32. 0 [facility] Chloride measurementOrdered By: Michael Snowden on 05-21-2024 Chloride [Moles/Vol] 109 mmol/L High 98-107 [facility] Chloride measurement 109 mmol/L High 98-107 [facility] Creatinine [Mass/Vol]Ordered By: Michael Snowden on 05-21-2024 Serum or plasma creatinine measurement (mass/volume) 0.80 mg/dL 0.55-1.02 [facility] Eosinophil percentageOrdered By: Michael Snowden on 05-21-2024 Eosinophils/100 WBC (Bld) 0.4 % 0-5 [facility] Eosinophil percentage 0.4 % 0-5 [facility] Erythrocyte distribution wid th (RBC) [Ratio]Ordered By: Michael Snowden 05-21-2024 Erythrocyte distribution width ratio 14.3 % 11.6-14.6 [facility] Erythrocyte distribution width (RBC) [Entitic vol] 52.0 fL High 35.1-43.9 [facility] Erythrocyte distribution width standard deviation 52.0 fl High 35.1-43.9 [facility] Erythrocyte distribution wid th ratioOrdered By: Michael Snowden 05-21-2024 Erythrocyte distribution width (RBC) [Ratio] 14.3 % 11.6-14.6 [facility] Erythrocyte distribution wid th standard deviationOrdered By: Michael Snowden on 05-21-2024 Erythrocyte distribution width (RBC) [Ratio] 52.0 fl High 35.1-43.9 [facility] Estimated glomerular filtrat ion rate (GFR) AmericanOrdered By: Michael Snowden on 05-21-2024 Estimated GFR (MDRD) Amer 89 mL/min >60 [facility] Comment on above: GFR Calc Estimated glomerular filtration rate (GFR) 89 mL/min >60 [facility] Estimation of creatinine bharat aranceOrdered By: Michael Snowden on 05-21-2024 Estimated Creatinine Clearance Calc 50.86 ml/min [facility] Estimation of creatinine clearance 50.86 ml/min [facility] Glomerular filtration rate ( GFR) estimationOrdered By: Michael Snowden on 05-21-2024 Estimated GFR (MDRD) Non-Af Amer 73 mL/min >60 [facility] Comment on above: Non- GFR Calc GFR/1.73 sq M.predicted among non-blacks MDRD (S/P/Bld) [Vol rate/Area] 73 mL/min/{1.73_m2} >60 [facility] Glomerular filtration rate (GFR) estimation 73 mL/min >60 [facility] Glucose measurementOrdered B y: Michael Snowden on 05-21-2024 Glucose [Mass/Vol] 85 mg/dL 74-106 [facility] Glucose measurement 85 mg/dL 74-[address] [facility] Hematocrit Auto (Bld) [Volum e fraction]Ordered By: Michael Snowden on 05-21-2024 Hematocrit (Bld) [Volume fraction] 34.3 % Low 37-47 [facility] Automated blood hematocrit (percentage) 34.3 % Low 37-47 [facility] Hemoglobin measurementOrdere d By: Michael Snowden 05-21-2024 Hemoglobin (Bld) [Mass/Vol] 11.0 g/dL Low 12.0-15. 0 [facility] Hemoglobin measurement 11.0 g/dL Low 12.0-15.0 [facility] Immature granulocytes/100 WB C Auto (Bld)Ordered By: Michael Snowden on 05-21-2024 Immature granulocytes/100 WBC (Bld) 2.600 % High 0.0-0.9 [facility] Comment on above: IG% - Immature Granu locytes (promyelocytes, myelocytes and metamyelocytes) > 1% indicates that a LEFT SHIFT is Present. Automated immature granulocyte percentage 2.600 % High 0.0-0.9 [facility] Lymphocytes Auto (Unsp spec) [#/Vol]Ordered By: Michael Snowden on 05-21-2024 Lymphocytes (Bld) [#/Vol] 1.68 10*3/uL 0.83-4.5 1 [facility] Absolute lymphocyte count 1.68 X10^3/uL 0.83-4. 51 [facility] Lymphocytes/100 WBC Auto (Un sp spec)Ordered By: Michael Snowden on 05-21-2024 Lymphocytes/100 WBC (Bld) 18.3 % Low - [facility] Automated lymphocyte count as percentage of total leukocytes 18.3 % Low -41 [facility] MCV (RBC) [Entitic vol]Order ed By: Michael Snowden on 05-21-2024 MCV (mean corpuscular volume) determination 98.8 fL 81-99 [facility] MCV (mean corpuscular volume ) determinationOrdered By: Michael Snowden on 05-21-2024 MCV (RBC) [Entitic vol] 98.8 fL 81-99 [facility] Mean corpuscular hemoglobin (MCH) determinationOrdered By: Michael Snowden on 05-21-2024 MCH (RBC) [Entitic mass] 31.7 pg 27.0-32.0 [facility] Mean corpuscular hemoglobin (MCH) determination 31.7 pg 27.0-32.0 [facility] Mean corpuscular hemoglobin concentration (MCHC) determinationOrdered By: Michael Snowden on 05-21-2024 MCHC (RBC) [Mass/Vol] 32.1 g/dL 32-36 [facility] Mean corpuscular hemoglobin concentration (MCHC) determination 32.1 g/dL -36 [facility] Mean platelet volume determi nationOrdered By: Michael Snowden on 05-21-2024 Platelet mean volume (Bld) [Entitic vol] 8.9 fL 6.2-12.0 [facility] Mean platelet volume determination 8.9 fl 6.2-12.0 [facility] Monocyte percentageOrdered B y: Michael Snowden on 05-21-2024 Monocytes/100 WBC (Bld) 9.6 % 0-10 [facility] Monocyte percentage 9.6 % 0-[address] [facility] Neutrophil percentageOrdered By: Michael Snowden on 05-21-2024 Neutrophils/100 WBC (Bld) 69.0 % 47-70 [facility] Neutrophil percentage 69.0 % 47-70 [facility] Nucleated red blood cell per centageOrdered By: Michael Snowden on 05-21-2024 Nucleated RBC/100 WBC (Bld) [Ratio] 0 % 0-5 [facility] Nucleated red blood cell percentage 0 % 0-5 [facility] Platelet countOrdered By: Augusto Snowden on 05-21-2024 Platelets (Bld) [#/Vol] 280 10*3/uL 150-450 [facility] Platelet count 280 K/mm3 150-450 [facility] Potassium measurementOrdered By: Michael Snowden on 05-21-2024 Potassium [Moles/Vol] 5.1 mmol/L 3.5-5.1 [facility] Potassium measurement 5.1 mmol/L 3.5-5.1 [facility] RBC Auto (Bld) [#/Vol]Ordere d By: Michael Snowden on 05-21-2024 RBC (Bld) [#/Vol] 3.47 10*6/uL Low 4.2-5.[address] [facility] Automated blood erythrocyte count 3.47 M/mm3 Low 4.2-5.4 [facility] Serum anion gap measurementO rdered By: Michael Snowden on 05-21-2024 Anion gap [Moles/Vol] 9 mmol/L 5-15 [facility] Serum anion gap measurement 9 5-15 [facility] Serum or plasma calcium gianluca urement (mass/volume)Ordered By: Michael Snowden on 05-21-2024 Calcium [Mass/Vol] 8.9 mg/dL 8.5-10.1 [facility] Serum or plasma creatinine m easurement (mass/volume)Ordered By: Michael Snowden on 05-21-2024 Creatinine [Mass/Vol] 0.80 mg/dL 0.55-1.02 [facility] Comment on above: The validity of the calculated GFR & GFRAA in patients over 70 years has not been determined. Clinical correlation is essential. Serum or plasma urea nitroge n measurement (mass/volume)Ordered By: Michael Snowden on 05-21-2024 Urea nitrogen [Mass/Vol] 32 mg/dL High 7-18 [facility] Sodium levelOrdered By: Michael Snowden on 05-21-2024 Sodium [Moles/Vol] 140 mmol/L 136-145 [facility] Sodium level 140 mmol/L 136-145 [facility] Urea nitrogen [Mass/Vol]Orde red By: Michael Snowden on 05-21-2024 Serum or plasma urea nitrogen measurement (mass/volume) 32 mg/dL High 10-15 [facility] White blood cell (WBC) count Ordered By: Michael Snowden on 05-21-2024 WBC (Bld) [#/Vol] 9.2 10*3/uL 4.4-11.0 [facility] White blood cell (WBC) count 9.2 K/mm3 4.4-11.0 [facility] COVID 19 AG RAPID (ELIE Saini)on 05-19-2024 SARS-CoV-2 (COVID-19) RNA DALILA+probe Ql (Unsp spec) Normal [facility] Comment on above: Performed By: #### M 100.505 ####[facility] [address] [place], [place], [id number] COVID-19 virus antigen assay Ordered By: Michael Snowden on 05-19-2024 SARS-CoV-2 (COVID-19) Ag IA.rapid Ql (Resp) [facility] SARS-CoV-2 (COVID-19) Ag IA. rapid Ql (Resp)Ordered By: Michael Snowden on 05-19-2024 SARS-CoV-2 Antigen (Rapid) [facility] Lumbar Spine 2 or 3 Viewson 05-18-2024 Lumbar Spine 2 or 3 Views Normal [facility] Basic Metabolic Profile (BMP )on 05-14-2024 BUN/CRE 22.1 RATIO High 10-20 [facility] Comment on above: Performed By: #### L 500.2500, L100.0100 ####[facility] [address] [place], [place], [id number] [place],Total 9.2 mg/dL Normal 8.5-10.1 [facility] Comment on above: Performed By: #### L 500.2500, L100.0100 ####[facility] [address] [place], [address] Chloride [Moles/Vol] 108 mmol/L High 98-107 [facility] Comment on above: Performed By: #### L 500.2500, L100.0100 ####[facility] [address] [place], [address] CO2 [Moles/Vol] 23.0 mmol/L Normal 21.0-32.0 [facility] Comment on above: Performed By: #### L 500.2500, L100.0100 ####[facility] [address] [place], [address] Creatinine [Mass/Vol] 0.63 mg/dL Normal 0.55-1.02 [facility] Comment on above: Result Comment: The validity of the calculated GFR GFRAA in patients over70 years has not been determined. Clinical correlation isessential. Performed By: #### L 500.2500, L100.0100 ####[facility] [address] [place], [address] ECRCL 50.48 ml/min Normal [facility] Comment on above: Performed By: #### L 500.2500, L100.0100 ####[facility] [address] [place], [address] EST GFR - AA 117 mL/min Normal >60 [facility] Comment on above: Result Comment: Afri can [place]kin[place] GFR Calc Performed By: #### L 500.2500, L100.0100 ####[facility] [address] [place], [address] GAP 6 Normal 5-15 [facility] Comment on above: Performed By: #### L 500.2500, L100.0100 ####[facility] [address] [place], [address] GFR/1.73 sq M.predicted among non-blacks MDRD (S/P/Bld) [Vol rate/Area] 96 mL/min/{1.73_m2} Normal >60 [facility] Comment on above: Result Comment: Non- GFR Calc Performed By: #### L 500.2500, L100.0100 ####[facility] [address] [place], [address] Glucose [Mass/Vol] 88 mg/dL Normal 74-106 [facility] Comment on above: Performed By: #### L 500.2500, L100.0100 ####[facility] [address] [place], [address] Potassium [Moles/Vol] 4.1 mmol/L Normal 3.5-5.1 [facility] Comment on above: Performed By: #### L 500.2500, L100.0100 ####[facility] [address] [place], [address] Sodium [Moles/Vol] 137 mmol/L Normal 136-145 [facility] Comment on above: Performed By: #### L 500.2500, L100.0100 ####[facility] [address] [place], [address] Urea nitrogen [Mass/Vol] 14 mg/dL Normal 7-18 [facility] Comment on above: Performed By: #### L 500.2500, L100.0100 ####[facility] [address] [place], [address] CBC W/Diff, Automatedon 05-01 Absolute Lymph 1.29 X10 3/uL Normal 0.83-4.51 [facility] Comment on above: Performed By: #### L 500.2500, L100.0100 ####[facility] [address] [place], [address] Absolute Neut 2.8 X10 3/uL Normal 2.0-7.7 [facility] Comment on above: Performed By: #### L 500.2500, L100.0100 ####[facility] [address] [place], [address] Basophils/100 WBC (Bld) 0.8 % Normal 0-1 [facility] Comment on above: Performed By: #### L 500.2500, L100.0100 ####[facility] [address] [place], [address] Eosinophils/100 WBC (Bld) 3.2 % Normal 0-5 [facility] Comment on above: Performed By: #### L 500.2500, L100.0100 ####[facility] [address] [place], [address] Erythrocyte distribution width (RBC) [Ratio] 13.6 % Normal 11.6-14.6 [facility] Comment on above: Performed By: #### L 500.2500, L100.0100 ####[facility] [address] [place], [address] Hematocrit (Bld) [Volume fraction] 33.9 % Low 37-47 [facility] Comment on above: Performed By: #### L 500.2500, L100.0100 ####[facility] [address] [place], [address] Hemoglobin (Bld) [Mass/Vol] 11.0 g/dL Low 12.0-15. 0 [facility] Comment on above: Performed By: #### L 500.2500, L100.0100 ####[facility] [address] [place], [address] IG% 0.400 Normal 0.0-0.9 [facility] Comment on above: Result Comment: IG% - Immature Granulocytes (promyelocytes, myelocytes andmetamyelocytes) > 1% indicates that a LEFT SHIFT is Present. Performed By: #### L 500.2500, L100.0100 ####[facility] [address] [place], [address] Lymphocytes/100 WBC (Bld) 26.2 % Normal 19-41 [facility] Comment on above: Performed By: #### L 500.2500, L100.0100 ####[facility] [address] [place], [address] MCH (RBC) [Entitic mass] 32.2 pg High 27.0-32.0 [facility] Comment on above: Performed By: #### L 500.2500, L100.0100 ####[facility] [address] [place], [address] MCHC (RBC) [Mass/Vol] 32.4 g/dL Normal 32-36 [facility] Comment on above: Performed By: #### L 500.2500, L100.0100 ####[facility] [address] [place], [address] MCV (RBC) [Entitic vol] 99.1 fL High 81-99 [facility] Comment on above: Performed By: #### L 500.2500, L100.0100 ####[facility] [address] [place], [address] Monocytes/100 WBC (Bld) 12.4 % High 0-10 [facility] Comment on above: Performed By: #### L 500.2500, L100.0100 ####[facility] [address] [place], [address] Neutrophils/100 WBC (Bld) 57.0 % Normal 47-70 [facility] Comment on above: Performed By: #### L 500.2500, L100.0100 ####[facility] [address] [place], [address] Nucleated RBC (Bld) [#/Vol] 0 10*3/uL Normal 0-5 [facility] Comment on above: Performed By: #### L 500.2500, L100.0100 ####[facility] [address] [place], [address] Platelet mean volume (Bld) [Entitic vol] 9.3 fL Normal 6.2-12.0 [facility] Comment on above: Performed By: #### L 500.2500, L100.0100 ####[facility] [address] [place], [address] Platelets (Bld) [#/Vol] 196 10*3/uL Normal 150-450 [facility] Comment on above: Performed By: #### L 500.2500, L100.0100 ####[facility] [address] [place], [address] RBC (Bld) [#/Vol] 3.42 10*6/uL Low 4.2-5.[address] [facility] Comment on above: Performed By: #### L 500.2500, L100.0100 ####[facility] [address] [place], [address] RDW SD 49.5 fl High 35.1-43.9 [facility] Comment on above: Performed By: #### L 500.2500, L100.0100 ####[facility] [address] [place], [address] WBC (Bld) [#/Vol] 4.9 10*3/uL Normal 4.4-11.0 [facility] Comment on above: Performed By: #### L 500.2500, L100.0100 ####[facility] [address] [place], [address] COVID 19 AG RAPID (ELIE Saini)on 05-12-2024 SARS-CoV-2 (COVID-19) RNA DALILA+probe Ql (Unsp spec) Normal [facility] Comment on above: Performed By: #### M 100.505 ####[facility] [address] [place], [address] COVID-19 virus antigen assay Ordered By: Michael Snowden on 05-12-2024 SARS-CoV-2 (COVID-19) Ag IA.rapid Ql (Resp) [facility] SARS-CoV-2 (COVID-19) Ag IA. rapid Ql (Resp)Ordered By: Michael Snowden on 05-12-2024 SARS-CoV-2 Antigen (Rapid) [facility] Basic Metabolic Profile (BMP )on 05-07-2024 BUN/CRE 23.5 RATIO High 10-20 [facility] Comment on above: Performed By: #### L 500.2500, L100.0100 ####[facility] [address] [place], [address] CA,Total 8.8 mg/dL Normal 8.5-10.1 [facility] Comment on above: Performed By: #### L 500.2500, L100.0100 ####[facility] [address] [place], [address] Chloride [Moles/Vol] 110 mmol/L High 98-107 [facility] Comment on above: Performed By: #### L 500.2500, L100.0100 ####[facility] [address] [place], [address] CO2 [Moles/Vol] 22.0 mmol/L Normal 21.0-32.0 [facility] Comment on above: Performed By: #### L 500.2500, L100.0100 ####[facility] [address] [place], [address] Creatinine [Mass/Vol] 0.64 mg/dL Normal 0.55-1.02 [facility] Comment on above: Result Comment: The validity of the calculated GFR GFRAA in patients over70 years has not been determined. Clinical correlation isessential. Performed By: #### L 500.2500, L100.0100 ####[facility] [address] [place], [address] ECRCL 50.29 ml/min Normal [facility] Comment on above: Performed By: #### L 500.2500, L100.0100 ####[facility] [address] [place], [address] EST GFR - AA 116 mL/min Normal >60 [facility] Comment on above: Result Comment: Afri can [place] GFR Calc Performed By: #### L 500.2500, L100.0100 ####[facility] [address] [place], [address] GAP 10 Normal 5-15 [facility] Comment on above: Performed By: #### L 500.2500, L100.0100 ####[facility] [address] [place], [address] GFR/1.73 sq M.predicted among non-blacks MDRD (S/P/Bld) [Vol rate/Area] 96 mL/min/{1.73_m2} Normal >60 [facility] Comment on above: Result Comment: Non- GFR Calc Performed By: #### L 500.2500, L100.0100 ####[facility] [address] [place], [address] Glucose [Mass/Vol] 94 mg/dL Normal 74-106 [facility] Comment on above: Performed By: #### L 500.2500, L100.0100 ####[facility] [address] [place], [address] Potassium [Moles/Vol] 4.1 mmol/L Normal 3.5-5.1 [facility] Comment on above: Performed By: #### L 500.2500, L100.0100 ####[facility] [address] [place], [address] Sodium [Moles/Vol] 142 mmol/L Normal 136-145 [facility] Comment on above: Performed By: #### L 500.2500, L100.0100 ####[facility] [address] [place], [address] Urea nitrogen [Mass/Vol] 15 mg/dL Normal 7-18 [facility] Comment on above: Performed By: #### L 500.2500, L100.0100 ####[facility] [address] [place], [address] CBC W/Diff, Automatedon 02-0 7-2024 Absolute Lymph 1.20 X10 3/uL Normal 0.83-4.51 [facility] Comment on above: Performed By: #### L 500.2500, L100.0100 ####[facility] [address] [place], [address] Absolute Neut 2.9 X10 3/uL Normal 2.0-7.7 [facility] Comment on above: Performed By: #### L 500.2500, L100.0100 ####[facility] [address] [place], [address] Basophils/100 WBC (Bld) 0.6 % Normal 0-1 [facility] Comment on above: Performed By: #### L 500.2500, L100.0100 ####[facility] [address] [place], [address] Eosinophils/100 WBC (Bld) 3.0 % Normal 0-5 [facility] Comment on above: Performed By: #### L 500.2500, L100.0100 ####[facility] [address] [place], [address] Erythrocyte distribution width (RBC) [Ratio] 13.7 % Normal 11.6-14.6 [facility] Comment on above: Performed By: #### L 500.2500, L100.0100 ####[facility] [address] [place], [address] Hematocrit (Bld) [Volume fraction] 35.3 % Low 37-47 [facility] Comment on above: Performed By: #### L 500.2500, L100.0100 ####[facility] [address] [place], [address] Hemoglobin (Bld) [Mass/Vol] 11.3 g/dL Low 12.0-15. 0 [facility] Comment on above: Performed By: #### L 500.2500, L100.0100 ####[facility] [address] [place], [address] IG% 0.200 Normal 0.0-0.9 [facility] Comment on above: Result Comment: IG% - Immature Granulocytes (promyelocytes, myelocytes andmetamyelocytes) > 1% indicates that a LEFT SHIFT is Present. Performed By: #### L 500.2500, L100.0100 ####[facility] [address] [place], [address] Lymphocytes/100 WBC (Bld) 25.4 % Normal 19-41 [facility] Comment on above: Performed By: #### L 500.2500, L100.0100 ####[facility] [address] [place], [address] MCH (RBC) [Entitic mass] 31.7 pg Normal 27.0-32.0 [facility] Comment on above: Performed By: #### L 500.2500, L100.0100 ####[facility] [address] [place], [address] MCHC (RBC) [Mass/Vol] 32.0 g/dL Normal 32-36 [facility] Comment on above: Performed By: #### L 500.2500, L100.0100 ####[facility] [address] [place], [address] MCV (RBC) [Entitic vol] 98.9 fL Normal 81-99 [facility] Comment on above: Performed By: #### L 500.2500, L100.0100 ####[facility] [address] [place], [address] Monocytes/100 WBC (Bld) 10.2 % High 0-10 [facility] Comment on above: Performed By: #### L 500.2500, L100.0100 ####[facility] [address] [place], [address] Neutrophils/100 WBC (Bld) 60.6 % Normal 47-70 [facility] Comment on above: Performed By: #### L 500.2500, L100.0100 ####[facility] [address] [place], [address] Nucleated RBC (Bld) [#/Vol] 0 10*3/uL Normal 0-5 [facility] Comment on above: Performed By: #### L 500.2500, L100.0100 ####[facility] [address] [place], [address] Platelet mean volume (Bld) [Entitic vol] 8.9 fL Normal 6.2-12.0 [facility] Comment on above: Performed By: #### L 500.2500, L100.0100 ####[facility] [address] [place], [address] Platelets (Bld) [#/Vol] 208 10*3/uL Normal 150-450 [facility] Comment on above: Performed By: #### L 500.2500, L100.0100 ####[facility] [address] [place], [address] RBC (Bld) [#/Vol] 3.57 10*6/uL Low 4.2-5.[address] [facility] Comment on above: Performed By: #### L 500.2500, L100.0100 ####[facility] [address] [place], [address] RDW SD 50.4 fl High 35.1-43.9 [facility] Comment on above: Performed By: #### L 500.2500, L100.0100 ####[facility] [address] [place], [address] WBC (Bld) [#/Vol] 4.7 10*3/uL Normal 4.4-11.0 [facility] Comment on above: Performed By: #### L 500.2500, L100.0100 ####[facility] [address] [place], [address] Basic Metabolic Profile (BMP )on 04-30-2024 BUN/CRE 28.8 RATIO High 10-20 [facility] Comment on above: Performed By: #### L 100.0100, L500.2500 ####[facility] [address] [place], [address] CA,Total 8.9 mg/dL Normal 8.5-10.1 [facility] Comment on above: Performed By: #### L 100.0100, L500.2500 ####[facility] [address] [place], [address] Chloride [Moles/Vol] 112 mmol/L High 98-107 [facility] Comment on above: Performed By: #### L 100.0100, L500.2500 ####[facility] [address] [place], [address] CO2 [Moles/Vol] 22.0 mmol/L Normal 21.0-32.0 [facility] Comment on above: Performed By: #### L 100.0100, L500.2500 ####[facility] [address] [place], [address] Creatinine [Mass/Vol] 0.73 mg/dL Normal 0.55-1.02 [facility] Comment on above: Result Comment: The validity of the calculated GFR GFRAA in patients over70 years has not been determined. Clinical correlation isessential. Performed By: #### L 100.0100, L500.2500 ####[facility] [address] [place], [address] ECRCL 50.34 ml/min Normal [facility] Comment on above: Performed By: #### L 100.0100, L500.2500 ####[facility] [address] [place], [address] EST GFR - AA 99 mL/min Normal >60 [facility] Comment on above: Result Comment: Afri can [place] GFR Calc Performed By: #### L 100.0100, L500.2500 ####[facility] [address] [place], [address] GAP 5 Normal 5-15 [facility] Comment on above: Performed By: #### L 100.0100, L500.2500 ####[facility] [address] [place], [address] GFR/1.73 sq M.predicted among non-blacks MDRD (S/P/Bld) [Vol rate/Area] 82 mL/min/{1.73_m2} Normal >60 [facility] Comment on above: Result Comment: Non- GFR Calc Performed By: #### L 100.0100, L500.2500 ####[facility] [address] [place], [address] Glucose [Mass/Vol] 96 mg/dL Normal 74-106 [facility] Comment on above: Performed By: #### L 100.0100, L500.2500 ####[facility] [address] [place], [address] Potassium [Moles/Vol] 4.3 mmol/L Normal 3.5-5.1 [facility] Comment on above: Performed By: #### L 100.0100, L500.2500 ####[facility] [address] [place], [address] Sodium [Moles/Vol] 140 mmol/L Normal 136-145 [facility] Comment on above: Performed By: #### L 100.0100, L500.2500 ####[facility] [address] [place], [address] Urea nitrogen [Mass/Vol] 21 mg/dL High 7-18 [facility] Comment on above: Performed By: #### L 100.0100, L500.2500 ####[facility] [address] [place], [address] CBC W/Diff, Automatedon - Absolute Lymph 1.28 X10 3/uL Normal 0.83-4.51 [facility] Comment on above: Performed By: #### L 100.0100, L500.2500 ####[facility] [address] [place], [address] Absolute Neut 3.9 X10 3/uL Normal 2.0-7.7 [facility] Comment on above: Performed By: #### L 100.0100, L500.2500 ####[facility] [address] [place], [address] Basophils/100 WBC (Bld) 1.0 % Normal 0-1 [facility] Comment on above: Performed By: #### L 100.0100, L500.2500 ####[facility] [address] [place], [address] Eosinophils/100 WBC (Bld) 2.2 % Normal 0-5 [facility] Comment on above: Performed By: #### L 100.0100, L500.2500 ####[facility] [address] [place], [address] Erythrocyte distribution width (RBC) [Ratio] 13.9 % Normal 11.6-14.6 [facility] Comment on above: Performed By: #### L 100.0100, L500.2500 ####[facility] [address] [place], [address] Hematocrit (Bld) [Volume fraction] 36.1 % Low 37-47 [facility] Comment on above: Performed By: #### L 100.0100, L500.2500 ####[facility] [address] [place], [address] Hemoglobin (Bld) [Mass/Vol] 11.9 g/dL Low 12.0-15. 0 [facility] Comment on above: Performed By: #### L 100.0100, L500.2500 ####[facility] [address] [place], [address] IG% 0.500 Normal 0.0-0.9 [facility] Comment on above: Result Comment: IG% - Immature Granulocytes (promyelocytes, myelocytes andmetamyelocytes) > 1% indicates that a LEFT SHIFT is Present. Performed By: #### L 100.0100, L500.2500 ####[facility] [address] [place], [address] Lymphocytes/100 WBC (Bld) 21.3 % Normal 19-41 [facility] Comment on above: Performed By: #### L 100.0100, L500.2500 ####[facility] [address] [place], [address] MCH (RBC) [Entitic mass] 32.4 pg High 27.0-32.0 [facility] Comment on above: Performed By: #### L 100.0100, L500.2500 ####[facility] [address] [place], [address] MCHC (RBC) [Mass/Vol] 33.0 g/dL Normal 32-36 [facility] Comment on above: Performed By: #### L 100.0100, L500.2500 ####[facility] [address] [place], [address] MCV (RBC) [Entitic vol] 98.4 fL Normal 81-99 [facility] Comment on above: Performed By: #### L 100.0100, L500.2500 ####[facility] [address] [place], [address] Monocytes/100 WBC (Bld) 10.3 % High 0-10 [facility] Comment on above: Performed By: #### L 100.0100, L500.2500 ####[facility] [address] [place], [address] Neutrophils/100 WBC (Bld) 64.7 % Normal 47-70 [facility] Comment on above: Performed By: #### L 100.0100, L500.2500 ####[facility] [address] [place], [address] Nucleated RBC (Bld) [#/Vol] 0 10*3/uL Normal 0-5 [facility] Comment on above: Performed By: #### L 100.0100, L500.2500 ####[facility] [address] [place], [address] Platelet mean volume (Bld) [Entitic vol] 8.8 fL Normal 6.2-12.0 [facility] Comment on above: Performed By: #### L 100.0100, L500.2500 ####[facility] [address] [place], [address] Platelets (Bld) [#/Vol] 265 10*3/uL Normal 150-450 [facility] Comment on above: Performed By: #### L 100.0100, L500.2500 ####[facility] [address] [place], [address] RBC (Bld) [#/Vol] 3.67 10*6/uL Low 4.2-5.[address] [facility] Comment on above: Performed By: #### L 100.0100, L500.2500 ####[facility] [address] [place], [address] RDW SD 50.2 fl High 35.1-43.9 [facility] Comment on above: Performed By: #### L 100.0100, L500.2500 ####[facility] [address] [place], [address] WBC (Bld) [#/Vol] 6.0 10*3/uL Normal 4.4-11.0 [facility] Comment on above: Performed By: #### L 100.0100, L500.2500 ####[facility] [address] [place], [address] Basic Metabolic Profile (BMP )on 04-23-2024 BUN/CRE 33.6 RATIO High 10-20 [facility] Comment on above: Performed By: #### L 100.0100, L500.2500 ####[facility] [address] [place], [address] CA,Total 8.8 mg/dL Normal 8.5-10.1 [facility] Comment on above: Performed By: #### L 100.0100, L500.2500 ####[facility] [address] [place], [address] Chloride [Moles/Vol] 108 mmol/L High 98-107 [facility] Comment on above: Performed By: #### L 100.0100, L500.2500 ####[facility] [address] [place], [address] CO2 [Moles/Vol] 22.0 mmol/L Normal 21.0-32.0 [facility] Comment on above: Performed By: #### L 100.0100, L500.2500 ####[facility] [address] [place], [address] Creatinine [Mass/Vol] 0.68 mg/dL Normal 0.55-1.02 [facility] Comment on above: Result Comment: The validity of the calculated GFR GFRAA in patients over70 years has not been determined. Clinical correlation isessential. Performed By: #### L 100.0100, L500.2500 ####[facility] [address] [place], [address] ECRCL 50.54 ml/min Normal [facility] Comment on above: Performed By: #### L 100.0100, L500.2500 ####[facility] [address] [place], [address] EST GFR - AA 107 mL/min Normal >60 [facility] Comment on above: Result Comment: Afri can [place] GFR Calc Performed By: #### L 100.0100, L500.2500 ####[facility] [address] [place], [address] GAP 6 Normal 5-15 [facility] Comment on above: Performed By: #### L 100.0100, L500.2500 ####[facility] [address] [place], [address] GFR/1.73 sq M.predicted among non-blacks MDRD (S/P/Bld) [Vol rate/Area] 88 mL/min/{1.73_m2} Normal >60 [facility] Comment on above: Result Comment: Non- GFR Calc Performed By: #### L 100.0100, L500.2500 ####[facility] [address] [place], [place], [address] Glucose [Mass/Vol] 97 mg/dL Normal 74-106 [facility] Comment on above: Performed By: #### L 100.0100, L500.2500 ####[facility] [address] [place], [address] Potassium [Moles/Vol] 4.6 mmol/L Normal 3.5-5.1 [facility] Comment on above: Performed By: #### L 100.0100, L500.2500 ####[facility] [address] [place], [address] Sodium [Moles/Vol] 136 mmol/L Normal 136-145 [facility] Comment on above: Performed By: #### L 100.0100, L500.2500 ####[facility] [address] [place], [address] Urea nitrogen [Mass/Vol] 23 mg/dL High 7-18 [facility] Comment on above: Performed By: #### L 100.0100, L500.2500 ####[facility] [address] [place], [address] CBC W/Diff, Automatedon 04-01-2024 Absolute Lymph 1.47 X10 3/uL Normal 0.83-4.51 [facility] Comment on above: Performed By: #### L 100.0100, L500.2500 ####[facility] [address] [place], [address] Absolute Neut 4.2 X10 3/uL Normal 2.0-7.7 [facility] Comment on above: Performed By: #### L 100.0100, L500.2500 ####[facility] [address] [place], [address] Basophils/100 WBC (Bld) 0.6 % Normal 0-1 [facility] Comment on above: Performed By: #### L 100.0100, L500.2500 ####[facility] [address] [place], [address] Eosinophils/100 WBC (Bld) 2.1 % Normal 0-5 [facility] Comment on above: Performed By: #### L 100.0100, L500.2500 ####[facility] [address] [place], [address] Erythrocyte distribution width (RBC) [Ratio] 13.2 % Normal 11.6-14.6 [facility] Comment on above: Performed By: #### L 100.0100, L500.2500 ####[facility] [address] [place], [address] Hematocrit (Bld) [Volume fraction] 34.8 % Low 37-47 [facility] Comment on above: Performed By: #### L 100.0100, L500.2500 ####[facility] [address] [place], [address] Hemoglobin (Bld) [Mass/Vol] 11.5 g/dL Low 12.0-15. 0 [facility] Comment on above: Performed By: #### L 100.0100, L500.2500 ####[facility] [address] [place], [address] IG% 2.400 High 0.0-0.9 [facility] Comment on above: Result Comment: IG% - Immature Granulocytes (promyelocytes, myelocytes andmetamyelocytes) > 1% indicates that a LEFT SHIFT is Present. Performed By: #### L 100.0100, L500.2500 ####[facility] [address] [place], [address] Lymphocytes/100 WBC (Bld) 22.0 % Normal 19-41 [facility] Comment on above: Performed By: #### L 100.0100, L500.2500 ####[facility] [address] [place], [address] MCH (RBC) [Entitic mass] 32.5 pg High 27.0-32.0 [facility] Comment on above: Performed By: #### L 100.0100, L500.2500 ####[facility] [address] [place], [address] MCHC (RBC) [Mass/Vol] 33.0 g/dL Normal 32-36 [facility] Comment on above: Performed By: #### L 100.0100, L500.2500 ####[facility] [address] [place], [address] MCV (RBC) [Entitic vol] 98.3 fL Normal 81-99 [facility] Comment on above: Performed By: #### L 100.0100, L500.2500 ####[facility] [address] [place], [address] Monocytes/100 WBC (Bld) 10.3 % High 0-10 [facility] Comment on above: Performed By: #### L 100.0100, L500.2500 ####[facility] [address] [place], [address] Neutrophils/100 WBC (Bld) 62.6 % Normal 47-70 [facility] Comment on above: Performed By: #### L 100.0100, L500.2500 ####[facility] [address] [place], [address] Nucleated RBC (Bld) [#/Vol] 0 10*3/uL Normal 0-5 [facility] Comment on above: Performed By: #### L 100.0100, L500.2500 ####[facility] [address] [place], [address] Platelet mean volume (Bld) [Entitic vol] 9.0 fL Normal 6.2-12.0 [facility] Comment on above: Performed By: #### L 100.0100, L500.2500 ####[facility] [address] [place], [address] Platelets (Bld) [#/Vol] 263 10*3/uL Normal 150-450 [facility] Comment on above: Performed By: #### L 100.0100, L500.2500 ####[facility] [address] [place], [address] RBC (Bld) [#/Vol] 3.54 10*6/uL Low 4.2-5.[address] [facility] Comment on above: Performed By: #### L 100.0100, L500.2500 ####[facility] [address] [place], [address] RDW SD 47.7 fl High 35.1-43.9 [facility] Comment on above: Performed By: #### L 100.0100, L500.2500 ####[facility] [address] [place], [address] WBC (Bld) [#/Vol] 6.7 10*3/uL Normal 4.4-11.0 [facility] Comment on above: Performed By: #### L 100.0100, L500.2500 ####[facility] [address] [place], [address] Basic Metabolic Profile (BMP )on 04-19-2024 BUN Normal 7-18 [facility] Comment on above: Result Comment: Canc elled via OM: Order cancelled - Patient discharged Performed By: #### L 100.0500, L500.2500 ####[facility] [address] [place], [address] BUN/CRE Normal - [facility] Comment on above: Result Comment: Canc elled via OM: Order cancelled - Patient discharged Performed By: #### L 100.0500, L500.2500 ####[facility] [address] [place], [address] CA,Total Normal 8.5-10.1 [facility] Comment on above: Result Comment: Canc elled via OM: Order cancelled - Patient discharged Performed By: #### L 100.0500, L500.2500 ####[facility] [address] [place], [address] CL Normal 98-107 [facility] Comment on above: Result Comment: Canc elled via OM: Order cancelled - Patient discharged Performed By: #### L 100.0500, L500.2500 ####[facility] [address] [place], [address] CO2 Normal 21.0-32.0 [facility] Comment on above: Result Comment: Canc elled via OM: Order cancelled - Patient discharged Performed By: #### L 100.0500, L500.2500 ####[facility] [address] [place], [address] CREAT,SERUM Normal 0.55-1.02 [facility] Comment on above: Result Comment: Canc elled via OM: Order cancelled - Patient discharged Performed By: #### L 100.0500, L500.2500 ####[facility] [address] [place], [address] EST GFR Normal >60 [facility] Comment on above: Result Comment: Canc elled via OM: Order cancelled - Patient discharged Performed By: #### L 100.0500, L500.2500 ####[facility] [address] [place], [address] EST GFR - AA Normal >60 [facility] Comment on above: Result Comment: Canc elled via OM: Order cancelled - Patient discharged Performed By: #### L 100.0500, L500.2500 ####[facility] [address] [place], [address] GAP Normal 5-15 [facility] Comment on above: Result Comment: Canc elled via OM: Order cancelled - Patient discharged Performed By: #### L 100.0500, L500.2500 ####[facility] [address] [place], [address] GLU Normal 74-106 [facility] Comment on above: Result Comment: Canc elled via OM: Order cancelled - Patient discharged Performed By: #### L 100.0500, L500.2500 ####[facility] [address] [place], [address] Potassium Normal 3.5-5.1 [facility] Comment on above: Result Comment: Canc elled via OM: Order cancelled - Patient discharged Performed By: #### L 100.0500, L500.2500 ####[facility] [address] [place], [address] Basic Metabolic Profile (BMP) Normal 136-145 [facility] Comment on above: Result Comment: Canc elled via OM: Order cancelled - Patient discharged Performed By: #### L 100.0500, L500.2500 ####[facility] [address] [place], [address] CBC-Complete Blood Cnt No Di ffon 04-19-2024 HCT Normal 37-47 [facility] Comment on above: Result Comment: Canc elled via OM: Order cancelled - Patient discharged Performed By: #### L 100.0500, L500.2500 ####[facility] [address] [place], [address] HGB Normal 12.0-15.0 [facility] Comment on above: Result Comment: Canc elled via OM: Order cancelled - Patient discharged Performed By: #### L 100.0500, L500.2500 ####[facility] [address] [place], [address] MCH Normal 27.0-32.0 [facility] Comment on above: Result Comment: Canc elled via OM: Order cancelled - Patient discharged Performed By: #### L 100.0500, L500.2500 ####[facility] [address] [place], [address] MCHC Normal 32-36 [facility] Comment on above: Result Comment: Canc elled via OM: Order cancelled - Patient discharged Performed By: #### L 100.0500, L500.2500 ####[facility] [address] [place], [address] MCV Normal 81-99 [facility] Comment on above: Result Comment: Canc elled via OM: Order cancelled - Patient discharged Performed By: #### L 100.0500, L500.2500 ####[facility] [address] [place], [address] PLT Normal 150-450 [facility] Comment on above: Result Comment: Canc elled via OM: Order cancelled - Patient discharged Performed By: #### L 100.0500, L500.2500 ####[facility] [address] [place], [address] RBC Normal 4.2-5.4 [facility] Comment on above: Result Comment: Canc elled via OM: Order cancelled - Patient discharged Performed By: #### L 100.0500, L500.2500 ####[facility] [address] [place], [address] RDW CV Normal 11.6-14.6 [facility] Comment on above: Result Comment: Canc elled via OM: Order cancelled - Patient discharged Performed By: #### L 100.0500, L500.2500 ####[facility] [address] [place], [address] RDW SD Normal 35.1-43.9 [facility] Comment on above: Result Comment: Canc elled via OM: Order cancelled - Patient discharged Performed By: #### L 100.0500, L500.2500 ####[facility] [address] [place], [address] WBC Normal 4.4-11.0 [facility] Comment on above: Result Comment: Canc elled via OM: Order cancelled - Patient discharged Performed By: #### L 100.0500, L500.2500 ####[facility] [address] [place], [address] Basic Metabolic Profile (BMP )on 04-18-2024 BUN Normal 7-18 [facility] Comment on above: Result Comment: Canc elled via OM: Order cancelled - Patient discharged Performed By: #### L 100.0500, L500.2500 ####[facility] [address] [place], [address] BUN/CRE Normal 10-20 [facility] Comment on above: Result Comment: Canc elled via OM: Order cancelled - Patient discharged Performed By: #### L 100.0500, L500.2500 ####[facility] [address] [place], [address] CA,Total Normal 8.5-10.1 [facility] Comment on above: Result Comment: Canc elled via OM: Order cancelled - Patient discharged Performed By: #### L 100.0500, L500.2500 ####[facility] [address] [place], [address] CL Normal 98-107 [facility] Comment on above: Result Comment: Canc elled via OM: Order cancelled - Patient discharged Performed By: #### L 100.0500, L500.2500 ####[facility] [address] [place], [address] CO2 Normal 21.0-32.0 [facility] Comment on above: Result Comment: Canc elled via OM: Order cancelled - Patient discharged Performed By: #### L 100.0500, L500.2500 ####[facility] [address] [place], [address] CREAT,SERUM Normal 0.55-1.02 [facility] Comment on above: Result Comment: Canc elled via OM: Order cancelled - Patient discharged Performed By: #### L 100.0500, L500.2500 ####[facility] [address] [place], [address] EST GFR Normal >60 [facility] Comment on above: Result Comment: Canc elled via OM: Order cancelled - Patient discharged Performed By: #### L 100.0500, L500.2500 ####[facility] [address] [place], [address] EST GFR - AA Normal >60 [facility] Comment on above: Result Comment: Canc elled via OM: Order cancelled - Patient discharged Performed By: #### L 100.0500, L500.2500 ####[facility] [address] [place], [address] GAP Normal 5-15 [facility] Comment on above: Result Comment: Canc elled via OM: Order cancelled - Patient discharged Performed By: #### L 100.0500, L500.2500 ####[facility] [address] [place], [address] GLU Normal 74-106 [facility] Comment on above: Result Comment: Canc elled via OM: Order cancelled - Patient discharged Performed By: #### L 100.0500, L500.2500 ####[facility] [address] [place], [address] Potassium Normal 3.5-5.1 [facility] Comment on above: Result Comment: Canc elled via OM: Order cancelled - Patient discharged Performed By: #### L 100.0500, L500.2500 ####[facility] [address] [place], [address] Basic Metabolic Profile (BMP) Normal 136-145 [facility] Comment on above: Result Comment: Canc elled via OM: Order cancelled - Patient discharged Performed By: #### L 100.0500, L500.2500 ####[facility] [address] [place], [address] CBC-Complete Blood Cnt No Di ffon 04-18-2024 HCT Normal 37-47 [facility] Comment on above: Result Comment: Canc elled via OM: Order cancelled - Patient discharged Performed By: #### L 100.0500, L500.2500 ####[facility] [address] [place], [address] HGB Normal 12.0-15.0 [facility] Comment on above: Result Comment: Canc elled via OM: Order cancelled - Patient discharged Performed By: #### L 100.0500, L500.2500 ####[facility] [address] [place], [address] MCH Normal 27.0-32.0 [facility] Comment on above: Result Comment: Canc elled via OM: Order cancelled - Patient discharged Performed By: #### L 100.0500, L500.2500 ####[facility] [address] [place], [address] MCHC Normal 32-36 [facility] Comment on above: Result Comment: Canc elled via OM: Order cancelled - Patient discharged Performed By: #### L 100.0500, L500.2500 ####[facility] [address] [place], [address] MCV Normal 81-99 [facility] Comment on above: Result Comment: Canc elled via OM: Order cancelled - Patient discharged Performed By: #### L 100.0500, L500.2500 ####[facility] [address] [place], [address] PLT Normal 150-450 [facility] Comment on above: Result Comment: Canc elled via OM: Order cancelled - Patient discharged Performed By: #### L 100.0500, L500.2500 ####[facility] [address] [place], [address] RBC Normal 4.2-5.4 [facility] Comment on above: Result Comment: Canc elled via OM: Order cancelled - Patient discharged Performed By: #### L 100.0500, L500.2500 ####[facility] [address] [place], [address] RDW CV Normal 11.6-14.6 [facility] Comment on above: Result Comment: Canc elled via OM: Order cancelled - Patient discharged Performed By: #### L 100.0500, L500.2500 ####[facility] [address] [place], [address] RDW SD Normal 35.1-43.9 [facility] Comment on above: Result Comment: Canc elled via OM: Order cancelled - Patient discharged Performed By: #### L 100.0500, L500.2500 ####[facility] [address] [place], [address] WBC Normal 4.4-11.0 [facility] Comment on above: Result Comment: Canc elled via OM: Order cancelled - Patient discharged Performed By: #### L 100.0500, L500.2500 ####[facility] [address] [place], [address] Basic Metabolic Profile (BMP )on 04-17-2024 BUN Normal 7-18 [facility] Comment on above: Result Comment: Canc elled via OM: Order cancelled - Patient discharged Performed By: #### L 500.2500, L100.0500 ####[facility] [address] [place], [address] BUN/CRE Normal 10-20 [facility] Comment on above: Result Comment: Canc elled via OM: Order cancelled - Patient discharged Performed By: #### L 500.2500, L100.0500 ####[facility] [address] [place], [address] CA,Total Normal 8.5-10.1 [facility] Comment on above: Result Comment: Canc elled via OM: Order cancelled - Patient discharged Performed By: #### L 500.2500, L100.0500 ####[facility] [address] [place], [address] CL Normal 98-107 [facility] Comment on above: Result Comment: Canc elled via OM: Order cancelled - Patient discharged Performed By: #### L 500.2500, L100.0500 ####[facility] [address] [place], [address] CO2 Normal 21.0-32.0 [facility] Comment on above: Result Comment: Canc elled via OM: Order cancelled - Patient discharged Performed By: #### L 500.2500, L100.0500 ####[facility] [address] [place], [address] CREAT,SERUM Normal 0.55-1.02 [facility] Comment on above: Result Comment: Canc elled via OM: Order cancelled - Patient discharged Performed By: #### L 500.2500, L100.0500 ####[facility] [address] [place], [address] EST GFR Normal >60 [facility] Comment on above: Result Comment: Canc elled via OM: Order cancelled - Patient discharged Performed By: #### L 500.2500, L100.0500 ####[facility] [address] [place], [address] EST GFR - AA Normal >60 [facility] Comment on above: Result Comment: Canc elled via OM: Order cancelled - Patient discharged Performed By: #### L 500.2500, L100.0500 ####[facility] [address] [place], [address] GAP Normal 5-15 [facility] Comment on above: Result Comment: Canc elled via OM: Order cancelled - Patient discharged Performed By: #### L 500.2500, L100.0500 ####[facility] [address] [place], [address] GLU Normal 74-106 [facility] Comment on above: Result Comment: Canc elled via OM: Order cancelled - Patient discharged Performed By: #### L 500.2500, L100.0500 ####[facility] [address] [place], [address] Potassium Normal 3.5-5.1 [facility] Comment on above: Result Comment: Canc elled via OM: Order cancelled - Patient discharged Performed By: #### L 500.2500, L100.0500 ####[facility] [address] [place], [address] Basic Metabolic Profile (BMP) Normal 136-145 [facility] Comment on above: Result Comment: Canc elled via OM: Order cancelled - Patient discharged Performed By: #### L 500.2500, L100.0500 ####[facility] [address] [place], [address] BUN/CRE 36.8 RATIO High 10-20 [facility] Comment on above: Performed By: #### L 100.0100, L500.2500 ####[facility] [address] [place], [address] CA,Total 8.9 mg/dL Normal 8.5-10.1 [facility] Comment on above: Performed By: #### L 100.0100, L500.2500 ####[facility] [address] [place], [address] Chloride [Moles/Vol] 106 mmol/L Normal 98-107 [facility] Comment on above: Performed By: #### L 100.0100, L500.2500 ####[facility] [address] [place], [address] CO2 [Moles/Vol] 23.0 mmol/L Normal 21.0-32.0 [facility] Comment on above: Performed By: #### L 100.0100, L500.2500 ####[facility] [address] [place], [address] Creatinine [Mass/Vol] 0.71 mg/dL Normal 0.55-1.02 [facility] Comment on above: Result Comment: The validity of the calculated GFR GFRAA in patients over70 years has not been determined. Clinical correlation isessential. Performed By: #### L 100.0100, L500.2500 ####[facility] [address] [place], [address] ECRCL 50.11 ml/min Normal [facility] Comment on above: Performed By: #### L 100.0100, L500.2500 ####[facility] [address] [place], [address] EST GFR - AA 103 mL/min Normal >60 [facility] Comment on above: Result Comment: Afri can [place] GFR Calc Performed By: #### L 100.0100, L500.2500 ####[facility] [address] [place], [address] GAP 6 Normal 5-15 [facility] Comment on above: Performed By: #### L 100.0100, L500.2500 ####[facility] [address] [place], [address] GFR/1.73 sq M.predicted among non-blacks MDRD (S/P/Bld) [Vol rate/Area] 85 mL/min/{1.73_m2} Normal >60 [facility] Comment on above: Result Comment: Non- GFR Calc Performed By: #### L 100.0100, L500.2500 ####[facility] [address] [place], [address] Glucose [Mass/Vol] 108 mg/dL High 74-106 [facility] Comment on above: Result Comment: Fast ing Glucose result from 100 to 125 mg/dLsuggests IMPAIRED HOMEOSTASIS per A.D.A. criteria. Performed By: #### L 100.0100, L500.2500 ####[facility] [address] [place], [address] Potassium [Moles/Vol] 4.2 mmol/L Normal 3.5-5.1 [facility] Comment on above: Performed By: #### L 100.0100, L500.2500 ####[facility] [address] [place], [address] Sodium [Moles/Vol] 135 mmol/L Low 136-145 [facility] Comment on above: Performed By: #### L 100.0100, L500.2500 ####[facility] [address] [place], [address] Urea nitrogen [Mass/Vol] 26 mg/dL High 7-18 [facility] Comment on above: Performed By: #### L 100.0100, L500.2500 ####[facility] [address] [place], [address] CBC W/Diff, Automatedon 03-31 Absolute Lymph 1.39 X10 3/uL Normal 0.83-4.51 [facility] Comment on above: Performed By: #### L 100.0100, L500.2500 ####[facility] [address] [place], [address] Absolute Neut 5.3 X10 3/uL Normal 2.0-7.7 [facility] Comment on above: Performed By: #### L 100.0100, L500.2500 ####[facility] [address] [place], [address] Basophils/100 WBC (Bld) 0.3 % Normal 0-1 [facility] Comment on above: Performed By: #### L 100.0100, L500.2500 ####[facility] [address] [place], [address] Eosinophils/100 WBC (Bld) 0.3 % Normal 0-5 [facility] Comment on above: Performed By: #### L 100.0100, L500.2500 ####[facility] [address] [place], [address] Erythrocyte distribution width (RBC) [Ratio] 13.0 % Normal 11.6-14.6 [facility] Comment on above: Performed By: #### L 100.0100, L500.2500 ####[facility] [address] [place], [address] Hematocrit (Bld) [Volume fraction] 35.2 % Low 37-47 [facility] Comment on above: Performed By: #### L 100.0100, L500.2500 ####[facility] [address] [place], [address] Hemoglobin (Bld) [Mass/Vol] 11.4 g/dL Low 12.0-15. 0 [facility] Comment on above: Performed By: #### L 100.0100, L500.2500 ####[facility] [address] [place], [address] IG% 0.300 Normal 0.0-0.9 [facility] Comment on above: Result Comment: IG% - Immature Granulocytes (promyelocytes, myelocytes andmetamyelocytes) > 1% indicates that a LEFT SHIFT is Present. Performed By: #### L 100.0100, L500.2500 ####[facility] [address] [place], [address] Lymphocytes/100 WBC (Bld) 18.8 % Low 19-41 [facility] Comment on above: Performed By: #### L 100.0100, L500.2500 ####[facility] [address] [place], [address] MCH (RBC) [Entitic mass] 31.7 pg Normal 27.0-32.0 [facility] Comment on above: Performed By: #### L 100.0100, L500.2500 ####[facility] [address] [place], [address] MCHC (RBC) [Mass/Vol] 32.4 g/dL Normal 32-36 [facility] Comment on above: Performed By: #### L 100.0100, L500.2500 ####[facility] [address] [place], [address] MCV (RBC) [Entitic vol] 97.8 fL Normal 81-99 [facility] Comment on above: Performed By: #### L 100.0100, L500.2500 ####[facility] [address] [place], [address] Monocytes/100 WBC (Bld) 8.3 % Normal 0-10 [facility] Comment on above: Performed By: #### L 100.0100, L500.2500 ####[facility] [address] [place], [address] Neutrophils/100 WBC (Bld) 72.0 % High 47-70 [facility] Comment on above: Performed By: #### L 100.0100, L500.2500 ####[facility] [address] [place], [address] Nucleated RBC (Bld) [#/Vol] 0 10*3/uL Normal 0-5 [facility] Comment on above: Performed By: #### L 100.0100, L500.2500 ####[facility] [address] [place], [address] Platelet mean volume (Bld) [Entitic vol] 9.0 fL Normal 6.2-12.0 [facility] Comment on above: Performed By: #### L 100.0100, L500.2500 ####[facility] [address] [place], [address] Platelets (Bld) [#/Vol] 261 10*3/uL Normal 150-450 [facility] Comment on above: Performed By: #### L 100.0100, L500.2500 ####[facility] [address] [place], [address] RBC (Bld) [#/Vol] 3.60 10*6/uL Low 4.2-5.[address] [facility] Comment on above: Performed By: #### L 100.0100, L500.2500 ####[facility] [address] [place], [address] RDW SD 46.8 fl High 35.1-43.9 [facility] Comment on above: Performed By: #### L 100.0100, L500.2500 ####[facility] [address] [place], [address] WBC (Bld) [#/Vol] 7.4 10*3/uL Normal 4.4-11.0 [facility] Comment on above: Performed By: #### L 100.0100, L500.2500 ####[facility] [address] [place], [address] CBC-Complete Blood Cnt No Di ffon 04-17-2024 HCT Normal 37-47 [facility] Comment on above: Result Comment: Canc elled via OM: Order cancelled - Patient discharged Performed By: #### L 500.2500, L100.0500 ####[facility] [address] [place], [address] HGB Normal 12.0-15.0 [facility] Comment on above: Result Comment: Canc elled via OM: Order cancelled - Patient discharged Performed By: #### L 500.2500, L100.0500 ####[facility] [address] [place], [address] MCH Normal 27.0-32.0 [facility] Comment on above: Result Comment: Canc elled via OM: Order cancelled - Patient discharged Performed By: #### L 500.2500, L100.0500 ####[facility] [address] [place], [address] MCHC Normal 32-36 [facility] Comment on above: Result Comment: Canc elled via OM: Order cancelled - Patient discharged Performed By: #### L 500.2500, L100.0500 ####[facility] [address] [place], [address] MCV Normal 81-99 [facility] Comment on above: Result Comment: Canc elled via OM: Order cancelled - Patient discharged Performed By: #### L 500.2500, L100.0500 ####[facility] [address] [place], [address] PLT Normal 150-450 [facility] Comment on above: Result Comment: Canc elled via OM: Order cancelled - Patient discharged Performed By: #### L 500.2500, L100.0500 ####[facility] [address] [place], [address] RBC Normal 4.2-5.4 [facility] Comment on above: Result Comment: Canc elled via OM: Order cancelled - Patient discharged Performed By: #### L 500.2500, L100.0500 ####[facility] [address] [place], [address] RDW CV Normal 11.6-14.6 [facility] Comment on above: Result Comment: Canc elled via OM: Order cancelled - Patient discharged Performed By: #### L 500.2500, L100.0500 ####[facility] [address] [place], [address] RDW SD Normal 35.1-43.9 [facility] Comment on above: Result Comment: Canc elled via OM: Order cancelled - Patient discharged Performed By: #### L 500.2500, L100.0500 ####[facility] [address] [place], [address] WBC Normal 4.4-11.0 [facility] Comment on above: Result Comment: Canc elled via OM: Order cancelled - Patient discharged Performed By: #### L 500.2500, L100.0500 ####[facility] [address] [place], [address] Basic Metabolic Profile (BMP )on 04-16-2024 BUN/CRE 31.0 RATIO High 10-20 [facility] Comment on above: Performed By: #### L 500.2500, L100.0500 ####[facility] [address] [place], [address] CA,Total 9.3 mg/dL Normal 8.5-10.1 [facility] Comment on above: Performed By: #### L 500.2500, L100.0500 ####[facility] [address] [place], [address] Chloride [Moles/Vol] 107 mmol/L Normal 98-107 [facility] Comment on above: Performed By: #### L 500.2500, L100.0500 ####[facility] [address] [place], [address] CO2 [Moles/Vol] 25.0 mmol/L Normal 21.0-32.0 [facility] Comment on above: Performed By: #### L 500.2500, L100.0500 ####[facility] [address] [place], [address] Creatinine [Mass/Vol] 0.68 mg/dL Normal 0.55-1.02 [facility] Comment on above: Result Comment: The validity of the calculated GFR GFRAA in patients over70 years has not been determined. Clinical correlation isessential. Performed By: #### L 500.2500, L100.0500 ####[facility] [address] [place], [address] ECRCL 50.81 ml/min Normal [facility] Comment on above: Performed By: #### L 500.2500, L100.0500 ####[facility] [address] [place], [address] EST GFR - AA 108 mL/min Normal >60 [facility] Comment on above: Result Comment: Afri can [place] GFR Calc Performed By: #### L 500.2500, L100.0500 ####[facility] [address] [place], [address] GAP 5 Normal 5-15 [facility] Comment on above: Performed By: #### L 500.2500, L100.0500 ####[facility] [address] [place], [address] GFR/1.73 sq M.predicted among non-blacks MDRD (S/P/Bld) [Vol rate/Area] 89 mL/min/{1.73_m2} Normal >60 [facility] Comment on above: Result Comment: Non- GFR Calc Performed By: #### L 500.2500, L100.0500 ####[facility] [address] [place], [address] Glucose [Mass/Vol] 113 mg/dL High 74-106 [facility] Comment on above: Result Comment: Fast ing Glucose result from 100 to 125 mg/dLsuggests IMPAIRED HOMEOSTASIS per A.D.A. criteria. Performed By: #### L 500.2500, L100.0500 ####[facility] [address] [place], [address] Potassium [Moles/Vol] 4.5 mmol/L Normal 3.5-5.1 [facility] Comment on above: Performed By: #### L 500.2500, L100.0500 ####[facility] [address] [place], [address] Sodium [Moles/Vol] 137 mmol/L Normal 136-145 [facility] Comment on above: Performed By: #### L 500.2500, L100.0500 ####[facility] [address] [place], [address] Urea nitrogen [Mass/Vol] 21 mg/dL High 7-18 [facility] Comment on above: Performed By: #### L 500.2500, L100.0500 ####[facility] [address] [place], [address] Blood urea nitrogen (BUN)/cr eatinine ratioOrdered By: Lesli Watkins on 04-16-2024 Urea nitrogen/Creatinine [Mass ratio] 31.0 mg/mg High 10-20 [facility] Blood urea nitrogen (BUN)/creatinine ratio 31.0 RATIO High 10-20 [facility] CBC-Complete Blood Cnt No Di ffon 04-16-2024 Erythrocyte distribution width (RBC) [Ratio] 13.0 % Normal 11.6-14.6 [facility] Comment on above: Performed By: #### L 500.2500, L100.0500 ####[facility] [address] [place], [address] Hematocrit (Bld) [Volume fraction] 36.8 % Low 37-47 [facility] Comment on above: Performed By: #### L 500.2500, L100.0500 ####[facility] [address] [place], [address] Hemoglobin (Bld) [Mass/Vol] 11.9 g/dL Low 12.0-15. 0 [facility] Comment on above: Performed By: #### L 500.2500, L100.0500 ####[facility] [address] [place], [address] MCH (RBC) [Entitic mass] 31.6 pg Normal 27.0-32.0 [facility] Comment on above: Performed By: #### L 500.2500, L100.0500 ####[facility] [address] [place], [address] MCHC (RBC) [Mass/Vol] 32.3 g/dL Normal 32-36 [facility] Comment on above: Performed By: #### L 500.2500, L100.0500 ####[facility] [address] [place], [address] MCV (RBC) [Entitic vol] 97.6 fL Normal 81-99 [facility] Comment on above: Performed By: #### L 500.2500, L100.0500 ####[facility] [address] [place], [address] Platelet mean volume (Bld) [Entitic vol] 8.8 fL Normal 6.2-12.0 [facility] Comment on above: Performed By: #### L 500.2500, L100.0500 ####[facility] [address] [place], [address] Platelets (Bld) [#/Vol] 252 10*3/uL Normal 150-450 [facility] Comment on above: Performed By: #### L 500.2500, L100.0500 ####[facility] [address] [place], [address] RBC (Bld) [#/Vol] 3.77 10*6/uL Low 4.2-5.[address] [facility] Comment on above: Performed By: #### L 500.2500, L100.0500 ####[facility] [address] [place], [address] RDW SD 46.3 fl High 35.1-43.9 [facility] Comment on above: Performed By: #### L 500.2500, L100.0500 ####[facility] [address] [place], [address] WBC (Bld) [#/Vol] 8.7 10*3/uL Normal 4.4-11.0 [facility] Comment on above: Performed By: #### L 500.2500, L100.0500 ####[facility] [address] [place], [address] Calcium [Mass/Vol]Ordered By : Lesli Watkins on 04-16-2024 Serum or plasma calcium measurement (mass/volume) 9.3 mg/dL 8.5-10.1 [facility] Carbon dioxide measurementOr dered By: Lesli Watkins on 04-16-2024 CO2 [Moles/Vol] 25.0 mmol/L 21.0-32.0 [facility] Carbon dioxide measurement 25.0 mmol/L 21.0-32. 0 [facility] Chloride measurementOrdered By: Lesli Watkins on 04-16-2024 Chloride [Moles/Vol] 107 mmol/L 98-107 [facility] Chloride measurement 107 mmol/L 98-107 [facility] Creatinine [Mass/Vol]Ordered By: Lesli Watkins on 04-16-2024 Serum or plasma creatinine measurement (mass/volume) 0.68 mg/dL 0.55-1.02 [facility] Erythrocyte distribution wid th (RBC) [Ratio]Ordered By: Lesli Watkins on 04-16-2024 Erythrocyte distribution width ratio 13.0 % 11.6-14.6 [facility] Erythrocyte distribution width (RBC) [Entitic vol] 46.3 fL High 35.1-43.9 [facility] Erythrocyte distribution width standard deviation 46.3 fl High 35.1-43.9 [facility] Erythrocyte distribution wid th ratioOrdered By: Lesli Watkins on 04-16-2024 Erythrocyte distribution width (RBC) [Ratio] 13.0 % 11.6-14.6 [facility] Erythrocyte distribution wid th standard deviationOrdered By: Lesli Watkins on 04-16-2024 Erythrocyte distribution width (RBC) [Ratio] 46.3 fl High 35.1-43.9 [facility] Estimated glomerular filtrat ion rate (GFR) AmericanOrdered By: Lesli Watkins on 04-16-2024 Estimated GFR (MDRD) Amer 108 mL/min >60 [facility] Comment on above: GFR Calc Estimated glomerular filtration rate (GFR) 108 mL/min >60 [facility] Estimation of creatinine bharat aranceOrdered By: Lesli Watkins on 04-16-2024 Estimated Creatinine Clearance Calc 50.81 ml/min [facility] Estimation of creatinine clearance 50.81 ml/min [facility] Glomerular filtration rate ( GFR) estimationOrdered By: Lesli Watkins on 04-16-2024 Estimated GFR (MDRD) Non-Af Amer 89 mL/min >60 [facility] Comment on above: Non- GFR Calc GFR/1.73 sq M.predicted among non-blacks MDRD (S/P/Bld) [Vol rate/Area] 89 mL/min/{1.73_m2} >60 [facility] Glomerular filtration rate (GFR) estimation 89 mL/min >60 [facility] Glucose measurementOrdered B y: Lesli Watkins on 04-16-2024 Glucose [Mass/Vol] 113 mg/dL High 74-106 [facility] Comment on above: Fasting Glucose resu lt from 100 to 125 mg/dL suggests IMPAIRED HOMEOSTASIS per A.D.A. criteria. Glucose measurement 113 mg/dL High 74-[address] [facility] Hematocrit Auto (Bld) [Volum e fraction]Ordered By: Lesli Watkins on 04-16-2024 Hematocrit (Bld) [Volume fraction] 36.8 % Low 37-47 [facility] Automated blood hematocrit (percentage) 36.8 % Low 37-47 [facility] Hemoglobin measurementOrdere d By: Lesli Watkins on 04-16-2024 Hemoglobin (Bld) [Mass/Vol] 11.9 g/dL Low 12.0-15. 0 [facility] Hemoglobin measurement 11.9 g/dL Low 12.0-15.0 [facility] MCV (RBC) [Entitic vol]Order ed By: Lesli Watkins on 04-16-2024 MCV (mean corpuscular volume) determination 97.6 fL 81-99 [facility] MCV (mean corpuscular volume ) determinationOrdered By: Lesli Watkins on 04-16-2024 MCV (RBC) [Entitic vol] 97.6 fL 81-99 [facility] Mean corpuscular hemoglobin (MCH) determinationOrdered By: Lesli Watkins on 04-16-2024 MCH (RBC) [Entitic mass] 31.6 pg 27.0-32.0 [facility] Mean corpuscular hemoglobin (MCH) determination 31.6 pg 27.0-32.0 [facility] Mean corpuscular hemoglobin concentration (MCHC) determinationOrdered By: Lesli Watkins on 04-16-2024 MCHC (RBC) [Mass/Vol] 32.3 g/dL 32-36 [facility] Mean corpuscular hemoglobin concentration (MCHC) determination 32.3 g/dL 32-36 [facility] Mean platelet volume determi nationOrdered By: Lesli Watkins on 04-16-2024 Platelet mean volume (Bld) [Entitic vol] 8.8 fL 6.2-12.0 [facility] Mean platelet volume determination 8.8 fl 6.2-12.0 [facility] Platelet countOrdered By: Gaby Watkins on 04-16-2024 Platelets (Bld) [#/Vol] 252 10*3/uL 150-450 [facility] Platelet count 252 K/mm3 150-450 [facility] Potassium measurementOrdered By: Lesli Watkins on 04-16-2024 Potassium [Moles/Vol] 4.5 mmol/L 3.5-5.1 [facility] Potassium measurement 4.5 mmol/L 3.5-5.1 [facility] RBC Auto (Bld) [#/Vol]Ordere d By: Lesli Watkins on 04-16-2024 RBC (Bld) [#/Vol] 3.77 10*6/uL Low 4.2-5.[address] [facility] Automated blood erythrocyte count 3.77 M/mm3 Low 4.2-5.4 [facility] Serum anion gap measurementO rdered By: Lesli Watkins on 04-16-2024 Anion gap [Moles/Vol] 5 mmol/L 5-15 [facility] Serum anion gap measurement 5 5-15 [facility] Serum or plasma calcium gianluca urement (mass/volume)Ordered By: Lesli Watkins on 04-16-2024 Calcium [Mass/Vol] 9.3 mg/dL 8.5-10.1 [facility] Serum or plasma creatinine m easurement (mass/volume)Ordered By: Lesli Watkins on 04-16-2024 Creatinine [Mass/Vol] 0.68 mg/dL 0.55-1.02 [facility] Comment on above: The validity of the calculated GFR & GFRAA in patients over 70 years has not been determined. Clinical correlation is essential. Serum or plasma urea nitroge n measurement (mass/volume)Ordered By: Lesli Watkins on 04-16-2024 Urea nitrogen [Mass/Vol] 21 mg/dL High 10-15 [facility] Sodium levelOrdered By: Zeus Watkins on 04-16-2024 Sodium [Moles/Vol] 137 mmol/L 136-145 [facility] Sodium level 137 mmol/L 136-145 [facility] Urea nitrogen [Mass/Vol]Orde red By: Lesli Watkins on 04-16-2024 Serum or plasma urea nitrogen measurement (mass/volume) 21 mg/dL High 10-15 [facility] White blood cell (WBC) count Ordered By: Lesli Watkins on 04-16-2024 WBC (Bld) [#/Vol] 8.7 10*3/uL 4.4-11.0 [facility] White blood cell (WBC) count 8.7 K/mm3 4.4-11.0 [facility] Basic Metabolic Profile (BMP )on 04-15-2024 BUN/CRE 27.9 RATIO High 10-20 [facility] Comment on above: Performed By: #### L 500.2500, L100.0500 ####[facility] [address] [place], [address] CA,Total 9.2 mg/dL Normal 8.5-10.1 [facility] Comment on above: Performed By: #### L 500.2500, L100.0500 ####[facility] [address] [place], [address] Chloride [Moles/Vol] 107 mmol/L Normal 98-107 [facility] Comment on above: Performed By: #### L 500.2500, L100.0500 ####[facility] [address] [place], [address] CO2 [Moles/Vol] 26.0 mmol/L Normal 21.0-32.0 [facility] Comment on above: Performed By: #### L 500.2500, L100.0500 ####[facility] [address] [place], [address] Creatinine [Mass/Vol] 0.68 mg/dL Normal 0.55-1.02 [facility] Comment on above: Result Comment: The validity of the calculated GFR GFRAA in patients over70 years has not been determined. Clinical correlation isessential. Performed By: #### L 500.2500, L100.0500 ####[facility] [address] [place], [address] ECRCL 50.81 ml/min Normal [facility] Comment on above: Performed By: #### L 500.2500, L100.0500 ####[facility] [address] [place], [address] EST GFR - AA 107 mL/min Normal >60 [facility] Comment on above: Result Comment: Afri can [place] GFR Calc Performed By: #### L 500.2500, L100.0500 ####[facility] [address] [place], [address] GAP 5 Normal 5-15 [facility] Comment on above: Performed By: #### L 500.2500, L100.0500 ####[facility] [address] [place], [address] GFR/1.73 sq M.predicted among non-blacks MDRD (S/P/Bld) [Vol rate/Area] 89 mL/min/{1.73_m2} Normal >60 [facility] Comment on above: Result Comment: Non- GFR Calc Performed By: #### L 500.2500, L100.0500 ####[facility] [address] [place], [address] Glucose [Mass/Vol] 119 mg/dL High 74-106 [facility] Comment on above: Result Comment: Fast ing Glucose result from 100 to 125 mg/dLsuggests IMPAIRED HOMEOSTASIS per A.D.A. criteria. Performed By: #### L 500.2500, L100.0500 ####[facility] [address] [place], [address] Potassium [Moles/Vol] 4.4 mmol/L Normal 3.5-5.1 [facility] Comment on above: Performed By: #### L 500.2500, L100.0500 ####[facility] [address] [place], [address] Sodium [Moles/Vol] 138 mmol/L Normal 136-145 [facility] Comment on above: Performed By: #### L 500.2500, L100.0500 ####[facility] [address] [place], [address] Urea nitrogen [Mass/Vol] 19 mg/dL High 7-18 [facility] Comment on above: Performed By: #### L 500.2500, L100.0500 ####[facility] [address] [place], [address] CBC-Complete Blood Cnt No Di ffon 04-15-2024 Erythrocyte distribution width (RBC) [Ratio] 13.0 % Normal 11.6-14.6 [facility] Comment on above: Performed By: #### L 500.2500, L100.0500 ####[facility] [address] [place], [address] Hematocrit (Bld) [Volume fraction] 37.2 % Normal 37-47 [facility] Comment on above: Performed By: #### L 500.2500, L100.0500 ####[facility] [address] [place], [address] Hemoglobin (Bld) [Mass/Vol] 12.2 g/dL Normal 12.0-15. 0 [facility] Comment on above: Performed By: #### L 500.2500, L100.0500 ####[facility] [address] [place], [address] MCH (RBC) [Entitic mass] 31.9 pg Normal 27.0-32.0 [facility] Comment on above: Performed By: #### L 500.2500, L100.0500 ####[facility] [address] [place], [address] MCHC (RBC) [Mass/Vol] 32.8 g/dL Normal 32-36 [facility] Comment on above: Performed By: #### L 500.2500, L100.0500 ####[facility] [address] [place], [address] MCV (RBC) [Entitic vol] 97.4 fL Normal 81-99 [facility] Comment on above: Performed By: #### L 500.2500, L100.0500 ####[facility] [address] [place], [address] Platelet mean volume (Bld) [Entitic vol] 8.9 fL Normal 6.2-12.0 [facility] Comment on above: Performed By: #### L 500.2500, L100.0500 ####[facility] [address] [place], [address] Platelets (Bld) [#/Vol] 281 10*3/uL Normal 150-450 [facility] Comment on above: Performed By: #### L 500.2500, L100.0500 ####[facility] [address] [place], [address] RBC (Bld) [#/Vol] 3.82 10*6/uL Low 4.2-5.[address] [facility] Comment on above: Performed By: #### L 500.2500, L100.0500 ####[facility] [address] [place], [address] RDW SD 46.1 fl High 35.1-43.9 [facility] Comment on above: Performed By: #### L 500.2500, L100.0500 ####[facility] [address] [place], [address] WBC (Bld) [#/Vol] 9.4 10*3/uL Normal 4.4-11.0 [facility] Comment on above: Performed By: #### L 500.2500, L100.0500 ####[facility] [address] [place], [address] 12 Lead EKGon 04-14-2024 12 Lead EKG Normal [facility] Basic Metabolic Profile (BMP )on 04-14-2024 BUN/CRE 25.0 RATIO High 10-20 [facility] Comment on above: Performed By: #### L 500.2500, L100.0500 ####[facility] [address] [place], [address] CA,Total 8.8 mg/dL Normal 8.5-10.1 [facility] Comment on above: Performed By: #### L 500.2500, L100.0500 ####[facility] [address] [place], [address] Chloride [Moles/Vol] 106 mmol/L Normal 98-107 [facility] Comment on above: Performed By: #### L 500.2500, L100.0500 ####[facility] [address] [place], [address] CO2 [Moles/Vol] 27.0 mmol/L Normal 21.0-32.0 [facility] Comment on above: Performed By: #### L 500.2500, L100.0500 ####[facility] [address] [place], [address] Creatinine [Mass/Vol] 0.80 mg/dL Normal 0.55-1.02 [facility] Comment on above: Result Comment: The validity of the calculated GFR GFRAA in patients over70 years has not been determined. Clinical correlation isessential. Performed By: #### L 500.2500, L100.0500 ####[facility] [address] [place], [address] ECRCL 50.81 ml/min Normal [facility] Comment on above: Performed By: #### L 500.2500, L100.0500 ####[facility] [address] [place], [address] EST GFR - AA 89 mL/min Normal >60 [facility] Comment on above: Result Comment: Afri can [place] GFR Calc Performed By: #### L 500.2500, L100.0500 ####[facility] [address] [place], [address] GAP 4 Low 5-15 [facility] Comment on above: Performed By: #### L 500.2500, L100.0500 ####[facility] [address] [place], [address] GFR/1.73 sq M.predicted among non-blacks MDRD (S/P/Bld) [Vol rate/Area] 74 mL/min/{1.73_m2} Normal >60 [facility] Comment on above: Result Comment: Non- GFR Calc Performed By: #### L 500.2500, L100.0500 ####[facility] [address] [place], [address] Glucose [Mass/Vol] 93 mg/dL Normal 74-106 [facility] Comment on above: Performed By: #### L 500.2500, L100.0500 ####[facility] [address] [place], [address] Potassium [Moles/Vol] 4.3 mmol/L Normal 3.5-5.1 [facility] Comment on above: Performed By: #### L 500.2500, L100.0500 ####[facility] [address] [place], [address] Sodium [Moles/Vol] 138 mmol/L Normal 136-145 [facility] Comment on above: Performed By: #### L 500.2500, L100.0500 ####[facility] [address] [place], [address] Urea nitrogen [Mass/Vol] 20 mg/dL High 7-18 [facility] Comment on above: Performed By: #### L 500.2500, L100.0500 ####[facility] [address] [place], [address] CBC-Complete Blood Cnt No Di ffon 04-14-2024 Erythrocyte distribution width (RBC) [Ratio] 13.1 % Normal 11.6-14.6 [facility] Comment on above: Performed By: #### L 500.2500, L100.0500 ####[facility] [address] [place], [address] Hematocrit (Bld) [Volume fraction] 36.1 % Low 37-47 [facility] Comment on above: Performed By: #### L 500.2500, L100.0500 ####[facility] [address] [place], [address] Hemoglobin (Bld) [Mass/Vol] 11.6 g/dL Low 12.0-15. 0 [facility] Comment on above: Performed By: #### L 500.2500, L100.0500 ####[facility] [address] [place], [address] MCH (RBC) [Entitic mass] 31.9 pg Normal 27.0-32.0 [facility] Comment on above: Performed By: #### L 500.2500, L100.0500 ####[facility] [address] [place], [address] MCHC (RBC) [Mass/Vol] 32.1 g/dL Normal 32-36 [facility] Comment on above: Performed By: #### L 500.2500, L100.0500 ####[facility] [address] [place], [address] MCV (RBC) [Entitic vol] 99.2 fL High 81-99 [facility] Comment on above: Performed By: #### L 500.2500, L100.0500 ####[facility] [address] [place], [address] Platelet mean volume (Bld) [Entitic vol] 9.0 fL Normal 6.2-12.0 [facility] Comment on above: Performed By: #### L 500.2500, L100.0500 ####[facility] [address] [place], [address] Platelets (Bld) [#/Vol] 269 10*3/uL Normal 150-450 [facility] Comment on above: Performed By: #### L 500.2500, L100.0500 ####[facility] [address] [place], [address] RBC (Bld) [#/Vol] 3.64 10*6/uL Low 4.2-5.[address] [facility] Comment on above: Performed By: #### L 500.2500, L100.0500 ####[facility] [address] [place], [address] RDW SD 47.4 fl High 35.1-43.9 [facility] Comment on above: Performed By: #### L 500.2500, L100.0500 ####[facility] [address] [place], [address] WBC (Bld) [#/Vol] 7.1 10*3/uL Normal 4.4-11.0 [facility] Comment on above: Performed By: #### L 500.2500, L100.0500 ####[facility] [address] [place], [address] Lumbar Spine 2 or 3 Viewson 04-14-2024 Lumbar Spine 2 or 3 Views Normal [facility] MR/POSTOP.ANEon 04-14-2024 MR/POSTOP.ANE Normal [facility] MR/NNFEAWDS1wt 04-14-2024 MR/POSTOPAN2 Normal [facility] Operative Reporton Operative Report Normal [facility] Basic Metabolic Profile (BMP )on 04-13-2024 BUN/CRE 25.7 RATIO High 10-20 [facility] Comment on above: Performed By: #### L 500.2500, L100.0500 ####[facility] [address] [place], [address] CA,Total 9.0 mg/dL Normal 8.5-10.1 [facility] Comment on above: Performed By: #### L 500.2500, L100.0500 ####[facility] [address] [place], [address] Chloride [Moles/Vol] 107 mmol/L Normal 98-107 [facility] Comment on above: Performed By: #### L 500.2500, L100.0500 ####[facility] [address] [place], [address] CO2 [Moles/Vol] 27.0 mmol/L Normal 21.0-32.0 [facility] Comment on above: Performed By: #### L 500.2500, L100.0500 ####[facility] [address] [place], [address] Creatinine [Mass/Vol] 0.70 mg/dL Normal 0.55-1.02 [facility] Comment on above: Result Comment: The validity of the calculated GFR GFRAA in patients over70 years has not been determined. Clinical correlation isessential. Performed By: #### L 500.2500, L100.0500 ####[facility] [address] [place], [address] ECRCL 50.81 ml/min Normal [facility] Comment on above: Performed By: #### L 500.2500, L100.0500 ####[facility] [address] [place], [address] EST GFR - AA 104 mL/min Normal >60 [facility] Comment on above: Result Comment: Afri can [place]kin[place] GFR Calc Performed By: #### L 500.2500, L100.0500 ####[facility] [address] [place], [address] GAP 5 Normal 5-15 [facility] Comment on above: Performed By: #### L 500.2500, L100.0500 ####[facility] [address] [place], [address] GFR/1.73 sq M.predicted among non-blacks MDRD (S/P/Bld) [Vol rate/Area] 86 mL/min/{1.73_m2} Normal >60 [facility] Comment on above: Result Comment: Non- GFR Calc Performed By: #### L 500.2500, L100.0500 ####[facility] [address] [place], [address] Glucose [Mass/Vol] 94 mg/dL Normal 74-106 [facility] Comment on above: Performed By: #### L 500.2500, L100.0500 ####[facility] [address] [place], [address] Potassium [Moles/Vol] 4.1 mmol/L Normal 3.5-5.1 [facility] Comment on above: Performed By: #### L 500.2500, L100.0500 ####[facility] [address] [place], [address] Sodium [Moles/Vol] 139 mmol/L Normal 136-145 [facility] Comment on above: Performed By: #### L 500.2500, L100.0500 ####[facility] [address] [place], [address] Urea nitrogen [Mass/Vol] 18 mg/dL Normal 7-18 [facility] Comment on above: Performed By: #### L 500.2500, L100.0500 ####[facility] [address] [place], [address] CBC-Complete Blood Cnt No Di ffon 04-13-2024 Erythrocyte distribution width (RBC) [Ratio] 13.1 % Normal 11.6-14.6 [facility] Comment on above: Performed By: #### L 500.2500, L100.0500 ####[facility] [address] [place], [address] Hematocrit (Bld) [Volume fraction] 37.7 % Normal 37-47 [facility] Comment on above: Performed By: #### L 500.2500, L100.0500 ####[facility] [address] [place], [address] Hemoglobin (Bld) [Mass/Vol] 12.2 g/dL Normal 12.0-15. 0 [facility] Comment on above: Performed By: #### L 500.2500, L100.0500 ####[facility] [address] [place], [address] MCH (RBC) [Entitic mass] 32.0 pg Normal 27.0-32.0 [facility] Comment on above: Performed By: #### L 500.2500, L100.0500 ####[facility] [address] [place], [address] MCHC (RBC) [Mass/Vol] 32.4 g/dL Normal 32-36 [facility] Comment on above: Performed By: #### L 500.2500, L100.0500 ####[facility] [address] [place], [address] MCV (RBC) [Entitic vol] 99.0 fL Normal 81-99 [facility] Comment on above: Performed By: #### L 500.2500, L100.0500 ####[facility] [address] [place], [address] Platelet mean volume (Bld) [Entitic vol] 9.0 fL Normal 6.2-12.0 [facility] Comment on above: Performed By: #### L 500.2500, L100.0500 ####[facility] [address] [place], [address] Platelets (Bld) [#/Vol] 267 10*3/uL Normal 150-450 [facility] Comment on above: Performed By: #### L 500.2500, L100.0500 ####[facility] [address] [place], [address] RBC (Bld) [#/Vol] 3.81 10*6/uL Low 4.2-5.[address] [facility] Comment on above: Performed By: #### L 500.2500, L100.0500 ####[facility] [address] [place], [address] RDW SD 47.2 fl High 35.1-43.9 [facility] Comment on above: Performed By: #### L 500.2500, L100.0500 ####[facility] [address] [place], [address] WBC (Bld) [#/Vol] 6.6 10*3/uL Normal 4.4-11.0 [facility] Comment on above: Performed By: #### L 500.2500, L100.0500 ####[facility] [address] [place], [address] Spine Lumbar (Routine)on Spine Lumbar (Routine) Normal [facility] Absolute lymphocyte countOrd ered By: Lesli Watkins on 04-12-2024 Lymphocytes Auto (Unsp spec) [#/Vol] 1.50 10*3/uL 0.83-4.51 [facility] Absolute neutrophil countOrd ered By: Lesli Watkins on 04-12-2024 Neutrophils (Bld) [#/Vol] 4.5 10*3/uL 2.0-7.7 [facility] Absolute neutrophil count 4.5 X10^3/uL 2.0-7.7 [facility] Automated lymphocyte count a s percentage of total leukocytesOrdered By: Lesli Watkins on 04-12-2024 Lymphocytes/100 WBC Auto (Unsp spec) 21.6 % 19-41 [facility] Basic Metabolic Profile (BMP )on 04-12-2024 BUN/CRE 18.6 RATIO Normal 10-20 [facility] Comment on above: Performed By: #### L 300.3900, L501.9520, L500.2500, L100.0100, L501.5200 ####[facility] [address] [place], [address] CA,Total 9.0 mg/dL Normal 8.5-10.1 [facility] Comment on above: Performed By: #### L 300.3900, L501.9520, L500.2500, L100.0100, L501.5200 ####[facility] [address] [place], [address] Chloride [Moles/Vol] 107 mmol/L Normal 98-107 [facility] Comment on above: Performed By: #### L 300.3900, L501.9520, L500.2500, L100.0100, L501.5200 ####[facility] [address] [place], [address] CO2 [Moles/Vol] 26.0 mmol/L Normal 21.0-32.0 [facility] Comment on above: Performed By: #### L 300.3900, L501.9520, L500.2500, L100.0100, L501.5200 ####[facility] [address] [place], [address] Creatinine [Mass/Vol] 0.81 mg/dL Normal 0.55-1.02 [facility] Comment on above: Result Comment: The validity of the calculated GFR GFRAA in patients over70 years has not been determined. Clinical correlation isessential. Performed By: #### L 300.3900, L501.9520, L500.2500, L100.0100, L501.5200 ####[facility] [address] [place], [address] ECRCL 50.18 ml/min Normal [facility] Comment on above: Performed By: #### L 300.3900, L501.9520, L500.2500, L100.0100, L501.5200 ####[facility] [address] [place], [address] EST GFR - AA 88 mL/min Normal >60 [facility] Comment on above: Result Comment: Afri can [place] GFR Calc Performed By: #### L 300.3900, L501.9520, L500.2500, L100.0100, L501.5200 ####[facility] [address] [place], [address] GAP 6 Normal 5-15 [facility] Comment on above: Performed By: #### L 300.3900, L501.9520, L500.2500, L100.0100, L501.5200 ####[facility] [address] [place], [address] GFR/1.73 sq M.predicted among non-blacks MDRD (S/P/Bld) [Vol rate/Area] 73 mL/min/{1.73_m2} Normal >60 [facility] Comment on above: Result Comment: Non- GFR Calc Performed By: #### L 300.3900, L501.9520, L500.2500, L100.0100, L501.5200 ####[facility] [address] [place], [address] Glucose [Mass/Vol] 95 mg/dL Normal 74-106 [facility] Comment on above: Performed By: #### L 300.3900, L501.9520, L500.2500, L100.0100, L501.5200 ####[facility] [address] [place], [address] Potassium [Moles/Vol] 4.4 mmol/L Normal 3.5-5.1 [facility] Comment on above: Performed By: #### L 300.3900, L501.9520, L500.2500, L100.0100, L501.5200 ####[facility] [address] [place], [address] Sodium [Moles/Vol] 138 mmol/L Normal 136-145 [facility] Comment on above: Performed By: #### L 300.3900, L501.9520, L500.2500, L100.0100, L501.5200 ####[facility] [address] [place], [address] Urea nitrogen [Mass/Vol] 15 mg/dL Normal 7-18 [facility] Comment on above: Performed By: #### L 300.3900, L501.9520, L500.2500, L100.0100, L501.5200 ####[facility] [address] [place], [address] Basophil percentageOrdered B y: Lesli Watkins on 04-12-2024 Basophils/100 WBC (Bld) 0.6 % 0-1 [facility] Basophil percentage 0.6 % 0-[address] [facility] CBC W/Diff, Automatedon 03-31 Absolute Lymph 1.50 X10 3/uL Normal 0.83-4.51 [facility] Comment on above: Performed By: #### L 300.3900, L501.9520, L500.2500, L100.0100, L501.5200 ####[facility] [address] [place], [address] Absolute Neut 4.5 X10 3/uL Normal 2.0-7.7 [facility] Comment on above: Performed By: #### L 300.3900, L501.9520, L500.2500, L100.0100, L501.5200 ####[facility] [address] [place], [address] Basophils/100 WBC (Bld) 0.6 % Normal 0-1 [facility] Comment on above: Performed By: #### L 300.3900, L501.9520, L500.2500, L100.0100, L501.5200 ####[facility] [address] [place], [address] Eosinophils/100 WBC (Bld) 1.3 % Normal 0-5 [facility] Comment on above: Performed By: #### L 300.3900, L501.9520, L500.2500, L100.0100, L501.5200 ####[facility] [address] [place], [address] Erythrocyte distribution width (RBC) [Ratio] 13.1 % Normal 11.6-14.6 [facility] Comment on above: Performed By: #### L 300.3900, L501.9520, L500.2500, L100.0100, L501.5200 ####[facility] [address] [place], [address] Hematocrit (Bld) [Volume fraction] 39.0 % Normal 37-47 [facility] Comment on above: Performed By: #### L 300.3900, L501.9520, L500.2500, L100.0100, L501.5200 ####[facility] [address] [place], [address] Hemoglobin (Bld) [Mass/Vol] 12.5 g/dL Normal 12.0-15. 0 [facility] Comment on above: Performed By: #### L 300.3900, L501.9520, L500.2500, L100.0100, L501.5200 ####[facility] [address] [place], [address] IG% 0.400 Normal 0.0-0.9 [facility] Comment on above: Result Comment: IG% - Immature Granulocytes (promyelocytes, myelocytes andmetamyelocytes) > 1% indicates that a LEFT SHIFT is Present. Performed By: #### L 300.3900, L501.9520, L500.2500, L100.0100, L501.5200 ####[facility] [address] [place], [address] Lymphocytes/100 WBC (Bld) 21.6 % Normal 19-41 [facility] Comment on above: Performed By: #### L 300.3900, L501.9520, L500.2500, L100.0100, L501.5200 ####[facility] [address] [place], [address] MCH (RBC) [Entitic mass] 31.7 pg Normal 27.0-32.0 [facility] Comment on above: Performed By: #### L 300.3900, L501.9520, L500.2500, L100.0100, L501.5200 ####[facility] [address] [place], [address] MCHC (RBC) [Mass/Vol] 32.1 g/dL Normal 32-36 [facility] Comment on above: Performed By: #### L 300.3900, L501.9520, L500.2500, L100.0100, L501.5200 ####[facility] [address] [place], [address] MCV (RBC) [Entitic vol] 99.0 fL Normal 81-99 [facility] Comment on above: Performed By: #### L 300.3900, L501.9520, L500.2500, L100.0100, L501.5200 ####[facility] [address] [place], [address] Monocytes/100 WBC (Bld) 10.9 % High 0-10 [facility] Comment on above: Performed By: #### L 300.3900, L501.9520, L500.2500, L100.0100, L501.5200 ####[facility] [address] [place], [address] Neutrophils/100 WBC (Bld) 65.2 % Normal 47-70 [facility] Comment on above: Performed By: #### L 300.3900, L501.9520, L500.2500, L100.0100, L501.5200 ####[facility] [address] [place], [address] Nucleated RBC (Bld) [#/Vol] 0 10*3/uL Normal 0-5 [facility] Comment on above: Performed By: #### L 300.3900, L501.9520, L500.2500, L100.0100, L501.5200 ####[facility] [address] [place], [address] Platelet mean volume (Bld) [Entitic vol] 8.8 fL Normal 6.2-12.0 [facility] Comment on above: Performed By: #### L 300.3900, L501.9520, L500.2500, L100.0100, L501.5200 ####[facility] [address] [place], [address] Platelets (Bld) [#/Vol] 291 10*3/uL Normal 150-450 [facility] Comment on above: Performed By: #### L 300.3900, L501.9520, L500.2500, L100.0100, L501.5200 ####[facility] [address] [place], [address] RBC (Bld) [#/Vol] 3.94 10*6/uL Low 4.2-5.[address] [facility] Comment on above: Performed By: #### L 300.3900, L501.9520, L500.2500, L100.0100, L501.5200 ####[facility] [address] [place], [address] RDW SD 47.5 fl High 35.1-43.9 [facility] Comment on above: Performed By: #### L 300.3900, L501.9520, L500.2500, L100.0100, L501.5200 ####[facility] [address] [place], [address] WBC (Bld) [#/Vol] 7.0 10*3/uL Normal 4.4-11.0 [facility] Comment on above: Performed By: #### L 300.3900, L501.9520, L500.2500, L100.0100, L501.5200 ####[facility] [address] [place], [address] Eosinophil percentageOrdered By: Lesli Watkins on 04-12-2024 Eosinophils/100 WBC (Bld) 1.3 % 0-5 [facility] Eosinophil percentage 1.3 % 0-5 [facility] Immature granulocytes/100 WB C Auto (Bld)Ordered By: Lesli Watkins on 04-12-2024 Immature granulocytes/100 WBC (Bld) 0.400 % 0.0-0.9 [facility] Comment on above: IG% - Immature Granu locytes (promyelocytes, myelocytes and metamyelocytes) > 1% indicates that a LEFT SHIFT is Present. Automated immature granulocyte percentage 0.400 % 0.0-0.9 [facility] International normalized rat io (INR) calculationOrdered By: Lesli Watkins on 04-12-2024 INR Coag (Bld) [Relative time] 1.0 {INR} [facility] International normalized ratio (INR) calculation 1.0 [facility] Lymphocytes Auto (Unsp spec) [#/Vol]Ordered By: Lesli Watkins on 04-12-2024 Lymphocytes (Bld) [#/Vol] 1.50 10*3/uL 0.83-4.5 1 [facility] Absolute lymphocyte count 1.50 X10^3/uL 0.83-4. 51 [facility] Lymphocytes/100 WBC Auto (Un sp spec)Ordered By: Lesli Watkins on 04-12-2024 Lymphocytes/100 WBC (Bld) 21.6 % [facility] Automated lymphocyte count as percentage of total leukocytes 21.6 % [facility] Magnesiumon 04-12-2024 Magnesium [Mass/Vol] 2.3 mg/dL Normal 1.6-2.6 [facility] Comment on above: Performed By: #### L 300.3900, L501.9520, L500.2500, L100.0100, L501.5200 ####[facility] [address] [place], [place], [id number] Magnesium measurementOrdered By: Lesli Watkins on 04-12-2024 Magnesium [Mass/Vol] 2.3 mg/dL 1.6-2.6 [facility] Magnesium measurement 2.3 mg/dL 1.6-2.6 [facility] Monocyte percentageOrdered B y: Lesli Watkins on 04-12-2024 Monocytes/100 WBC (Bld) 10.9 % High 0-10 [facility] Monocyte percentage 10.9 % High 0-[address] [facility] Neutrophil percentageOrdered By: Lesli Watkins on 04-12-2024 Neutrophils/100 WBC (Bld) 65.2 % 47-70 [facility] Neutrophil percentage 65.2 % 47-70 [facility] Nucleated red blood cell per centageOrdered By: Lesli Watkins on 04-12-2024 Nucleated RBC/100 WBC (Bld) [Ratio] 0 % 0-5 [facility] Nucleated red blood cell percentage 0 % 0-5 [facility] Prothrombin Time w/INRon INR Coag (PPP) [Relative time] 1.0 {INR} Normal [facility] Comment on above: Performed By: #### L 300.3900, L501.9520, L500.2500, L100.0100, L501.5200 ####[facility] [address] [place], [place], [id number] PT Coag (PPP) [Time] 13.8 s Normal 11.7-14.9 [facility] Comment on above: Performed By: #### L 300.3900, L501.9520, L500.2500, L100.0100, L501.5200 ####[facility] [address] [place], [address] Prothrombin timeOrdered By: Lesli Watkins on 04-12-2024 PT Coag (PPP) [Time] 13.8 s 11.7-14.9 [facility] Prothrombin time 13.8 SECONDS 11.7-14.9 [facility] Serum or plasma thyroid stim ulating hormone (TSH) measurement (units/volume)Ordered By: Lesli Watkins on 04-12-2024 TSH Qn 0.856 uIU/mL 0.358-3.740 [facility] TSH QnOrdered By: Lesli mccoy on 04-12-2024 Thyroid Stimulating Hormone (TSH) 0.856 uIU/mL 0.358-3.740 [facility] Serum or plasma thyroid stimulating hormone (TSH) measurement (units/volume) 0.856 uIU/mL 0.358-3.[address] [facility] Thyroid Stim Hormone (TSH)on 04-12-2024 TSH 0.856 uIU/mL Normal 0.358-3.740 [facility] Comment on above: Performed By: #### L 300.3900, L501.9520, L500.2500, L100.0100, L501.5200 ####[facility] [address] [place], [address] Transvaginal Non-on 04-12-2024 Transvaginal Non- Normal [facility] Basic Metabolic Profile (BMP )on 04-11-2024 BUN/CRE 18.3 RATIO Normal 10-20 [facility] Comment on above: Performed By: #### L 100.0100, L500.2500 ####[facility] [address] [place], [address] CA,Total 9.1 mg/dL Normal 8.5-10.1 [facility] Comment on above: Performed By: #### L 100.0100, L500.2500 ####[facility] [address] [place], [address] Chloride [Moles/Vol] 103 mmol/L Normal 98-107 [facility] Comment on above: Performed By: #### L 100.0100, L500.2500 ####[facility] [address] [place], [address] CO2 [Moles/Vol] 27.0 mmol/L Normal 21.0-32.0 [facility] Comment on above: Performed By: #### L 100.0100, L500.2500 ####[facility] [address] [place], [address] Creatinine [Mass/Vol] 0.76 mg/dL Normal 0.55-1.02 [facility] Comment on above: Result Comment: The validity of the calculated GFR GFRAA in patients over70 years has not been determined. Clinical correlation isessential. Performed By: #### L 100.0100, L500.2500 ####[facility] [address] [place], [address] ECRCL 53.96 ml/min Normal [facility] Comment on above: Performed By: #### L 100.0100, L500.2500 ####[facility] [address] [place], [address] EST GFR - AA 94 mL/min Normal >60 [facility] Comment on above: Result Comment: Afri can [place] GFR Calc Performed By: #### L 100.0100, L500.2500 ####[facility] [address] [place], [address] GAP 6 Normal 5-15 [facility] Comment on above: Performed By: #### L 100.0100, L500.2500 ####[facility] [address] [place], [address] GFR/1.73 sq M.predicted among non-blacks MDRD (S/P/Bld) [Vol rate/Area] 78 mL/min/{1.73_m2} Normal >60 [facility] Comment on above: Result Comment: Non- GFR Calc Performed By: #### L 100.0100, L500.2500 ####[facility] [address] [place], [address] Glucose [Mass/Vol] 97 mg/dL Normal 74-106 [facility] Comment on above: Performed By: #### L 100.0100, L500.2500 ####[facility] [address] [place], [address] Potassium [Moles/Vol] 4.2 mmol/L Normal 3.5-5.1 [facility] Comment on above: Performed By: #### L 100.0100, L500.2500 ####[facility] [address] [place], [address] Sodium [Moles/Vol] 136 mmol/L Normal 136-145 [facility] Comment on above: Performed By: #### L 100.0100, L500.2500 ####[facility] [address] [place], [address] Urea nitrogen [Mass/Vol] 14 mg/dL Normal 7-18 [facility] Comment on above: Performed By: #### L 100.0100, L500.2500 ####[facility] [address] [place], [address] CBC W/Diff, Automatedon 03-31 Absolute Lymph 1.21 X10 3/uL Normal 0.83-4.51 [facility] Comment on above: Performed By: #### L 100.0100, L500.2500 ####[facility] [address] [place], [address] Absolute Neut 5.9 X10 3/uL Normal 2.0-7.7 [facility] Comment on above: Performed By: #### L 100.0100, L500.2500 ####[facility] [address] [place], [address] Basophils/100 WBC (Bld) 0.7 % Normal 0-1 [facility] Comment on above: Performed By: #### L 100.0100, L500.2500 ####[facility] [address] [place], [address] Eosinophils/100 WBC (Bld) 1.0 % Normal 0-5 [facility] Comment on above: Performed By: #### L 100.0100, L500.2500 ####[facility] [address] [place], [address] Erythrocyte distribution width (RBC) [Ratio] 13.0 % Normal 11.6-14.6 [facility] Comment on above: Performed By: #### L 100.0100, L500.2500 ####[facility] [address] [place], [address] Hematocrit (Bld) [Volume fraction] 38.0 % Normal 37-47 [facility] Comment on above: Performed By: #### L 100.0100, L500.2500 ####[facility] [address] [place], [address] Hemoglobin (Bld) [Mass/Vol] 12.7 g/dL Normal 12.0-15. 0 [facility] Comment on above: Performed By: #### L 100.0100, L500.2500 ####[facility] [address] [place], [address] IG% 0.400 Normal 0.0-0.9 [facility] Comment on above: Result Comment: IG% - Immature Granulocytes (promyelocytes, myelocytes andmetamyelocytes) > 1% indicates that a LEFT SHIFT is Present. Performed By: #### L 100.0100, L500.2500 ####[facility] [address] [place], [address] Lymphocytes/100 WBC (Bld) 15.1 % Low 19-41 [facility] Comment on above: Performed By: #### L 100.0100, L500.2500 ####[facility] [address] [place], [address] MCH (RBC) [Entitic mass] 32.4 pg High 27.0-32.0 [facility] Comment on above: Performed By: #### L 100.0100, L500.2500 ####[facility] [address] [place], [address] MCHC (RBC) [Mass/Vol] 33.4 g/dL Normal 32-36 [facility] Comment on above: Performed By: #### L 100.0100, L500.2500 ####[facility] [address] [place], [address] MCV (RBC) [Entitic vol] 96.9 fL Normal 81-99 [facility] Comment on above: Performed By: #### L 100.0100, L500.2500 ####[facility] [address] [place], [address] Monocytes/100 WBC (Bld) 9.0 % Normal 0-10 [facility] Comment on above: Performed By: #### L 100.0100, L500.2500 ####[facility] [address] [place], [address] Neutrophils/100 WBC (Bld) 73.8 % High 47-70 [facility] Comment on above: Performed By: #### L 100.0100, L500.2500 ####[facility] [address] [place], [address] Nucleated RBC (Bld) [#/Vol] 0 10*3/uL Normal 0-5 [facility] Comment on above: Performed By: #### L 100.0100, L500.2500 ####[facility] [address] [place], [address] Platelet mean volume (Bld) [Entitic vol] 9.1 fL Normal 6.2-12.0 [facility] Comment on above: Performed By: #### L 100.0100, L500.2500 ####[facility] [address] [place], [address] Platelets (Bld) [#/Vol] 296 10*3/uL Normal 150-450 [facility] Comment on above: Performed By: #### L 100.0100, L500.2500 ####[facility] [address] [place], [address] RBC (Bld) [#/Vol] 3.92 10*6/uL Low 4.2-5.[address] [facility] Comment on above: Performed By: #### L 100.0100, L500.2500 ####[facility] [address] [place], [address] RDW SD 46.2 fl High 35.1-43.9 [facility] Comment on above: Performed By: #### L 100.0100, L500.2500 ####[facility] [address] [place], [address] WBC (Bld) [#/Vol] 8.0 10*3/uL Normal 4.4-11.0 [facility] Comment on above: Performed By: #### L 100.0100, L500.2500 ####[facility] [address] [place], [address] Emergency Department Summary on 04-11-2024 Emergency Department Summary Normal [facility] H AND P Exam - Hospitaliston 04-11-2024 H&P Exam - Hospitalist Normal [facility] Lumbar Spine 2 or 3 Viewson 04-11-2024 Lumbar Spine 2 or 3 Views Normal [facility] Emergency Department Summary on 03-30-2024 Emergency Department Summary Normal [facility] HIP, UNI W/ Pelvis 2-3 Views on 03-30-2024 HIP, UNI W/ Pelvis 2-3 Views Normal [facility] Lumbar Spine 2 or 3 Viewson 03-30-2024 Lumbar Spine 2 or 3 Views Normal [facility] Brain/Head without Contrasto n 02-25-2024 Brain/Head without Contrast Normal [facility] Emergency Department Summary on 02-25-2024 Emergency Department Summary Normal [facility] Spine Cervical without Contr ason 02-25-2024 Spine Cervical without Contras Normal [facility] Gastroenterology Visit Repor ton 02-23-2024 Gastroenterology Visit Report Normal [facility] Re-Evaluation - PT (1)on Re-Evaluation - PT (1) Normal [facility] Dexa Bone Density/Append Ske sergio 01-08-2024 Dexa Bone Density/Append Skel Normal [facility] Inital Evaluation (1) - PTon 12-29-2023 Inital Evaluation (1) - PT Normal [facility] CBC W/Diff, Automatedon 11-29 Absolute Lymph 1.16 X10 3/uL Normal 0.83-4.51 [facility] Comment on above: Performed By: #### L 506.1000, L500.4050, L501.9520, L100.0100, L500.4100 ####[facility] [address] [place], [address] Absolute Neut 3.8 X10 3/uL Normal 2.0-7.7 [facility] Comment on above: Performed By: #### L 506.1000, L500.4050, L501.9520, L100.0100, L500.4100 ####[facility] [address] [place], [address] Basophils/100 WBC (Bld) 0.7 % Normal 0-1 [facility] Comment on above: Performed By: #### L 506.1000, L500.4050, L501.9520, L100.0100, L500.4100 ####[facility] [address] [place], [address] Eosinophils/100 WBC (Bld) 2.1 % Normal 0-5 [facility] Comment on above: Performed By: #### L 506.1000, L500.4050, L501.9520, L100.0100, L500.4100 ####[facility] [address] [place], [address] Erythrocyte distribution width (RBC) [Ratio] 13.0 % Normal 11.6-14.6 [facility] Comment on above: Performed By: #### L 506.1000, L500.4050, L501.9520, L100.0100, L500.4100 ####[facility] [address] [place], [address] Hematocrit (Bld) [Volume fraction] 40.5 % Normal 37-47 [facility] Comment on above: Performed By: #### L 506.1000, L500.4050, L501.9520, L100.0100, L500.4100 ####[facility] [address] [place], [address] Hemoglobin (Bld) [Mass/Vol] 12.8 g/dL Normal 12.0-15. 0 [facility] Comment on above: Performed By: #### L 506.1000, L500.4050, L501.9520, L100.0100, L500.4100 ####[facility] [address] [place], [address] IG% 0.500 Normal 0.0-0.9 [facility] Comment on above: Result Comment: IG% - Immature Granulocytes (promyelocytes, myelocytes andmetamyelocytes) > 1% indicates that a LEFT SHIFT is Present. Performed By: #### L 506.1000, L500.4050, L501.9520, L100.0100, L500.4100 ####[facility] [address] [place], [address] Lymphocytes/100 WBC (Bld) 20.4 % Normal 19-41 [facility] Comment on above: Performed By: #### L 506.1000, L500.4050, L501.9520, L100.0100, L500.4100 ####[facility] [address] [place], [address] MCH (RBC) [Entitic mass] 31.7 pg Normal 27.0-32.0 [facility] Comment on above: Performed By: #### L 506.1000, L500.4050, L501.9520, L100.0100, L500.4100 ####[facility] [address] [place], [address] MCHC (RBC) [Mass/Vol] 31.6 g/dL Low 32-36 [facility] Comment on above: Performed By: #### L 506.1000, L500.4050, L501.9520, L100.0100, L500.4100 ####[facility] [address] [place], [address] MCV (RBC) [Entitic vol] 100.2 fL High 81-99 [facility] Comment on above: Performed By: #### L 506.1000, L500.4050, L501.9520, L100.0100, L500.4100 ####[facility] [address] [place], [address] Monocytes/100 WBC (Bld) 9.3 % Normal 0-10 [facility] Comment on above: Performed By: #### L 506.1000, L500.4050, L501.9520, L100.0100, L500.4100 ####[facility] [address] [place], [address] Neutrophils/100 WBC (Bld) 67.0 % Normal 47-70 [facility] Comment on above: Performed By: #### L 506.1000, L500.4050, L501.9520, L100.0100, L500.4100 ####[facility] [address] [place], [address] Nucleated RBC (Bld) [#/Vol] 0 10*3/uL Normal 0-5 [facility] Comment on above: Performed By: #### L 506.1000, L500.4050, L501.9520, L100.0100, L500.4100 ####[facility] [address] [place], [address] Platelet mean volume (Bld) [Entitic vol] 9.3 fL Normal 6.2-12.0 [facility] Comment on above: Performed By: #### L 506.1000, L500.4050, L501.9520, L100.0100, L500.4100 ####[facility] [address] [place], [address] Platelets (Bld) [#/Vol] 213 10*3/uL Normal 150-450 [facility] Comment on above: Performed By: #### L 506.1000, L500.4050, L501.9520, L100.0100, L500.4100 ####[facility] [address] [place], [address] RBC (Bld) [#/Vol] 4.04 10*6/uL Low 4.2-5.[address] [facility] Comment on above: Performed By: #### L 506.1000, L500.4050, L501.9520, L100.0100, L500.4100 ####[facility] [address] [place], [address] RDW SD 48.1 fl High 35.1-43.9 [facility] Comment on above: Performed By: #### L 506.1000, L500.4050, L501.9520, L100.0100, L500.4100 ####[facility] [address] [place], [address] WBC (Bld) [#/Vol] 5.7 10*3/uL Normal 4.4-11.0 [facility] Comment on above: Performed By: #### L 506.1000, L500.4050, L501.9520, L100.0100, L500.4100 ####[facility] [address] [place], [address] Comprehensive Metabolic Prof neon 12-15-2023 Albumin [Mass/Vol] 3.4 g/dL Normal 3.2-5.0 [facility] Comment on above: Performed By: #### L 506.1000, L500.4050, L501.9520, L100.0100, L500.4100 ####[facility] [address] [place], [address] Albumin/Globulin [Mass ratio] 0.8 {ratio} Low 0.9-2.4 [facility] Comment on above: Performed By: #### L 506.1000, L500.4050, L501.9520, L100.0100, L500.4100 ####[facility] [address] [place], [address] ALK P 76 U/L Normal 45-117 [facility] Comment on above: Performed By: #### L 506.1000, L500.4050, L501.9520, L100.0100, L500.4100 ####[facility] [address] [place], [address] ALT [Catalytic activity/Vol] 22 U/L Normal 13-56 [facility] Comment on above: Performed By: #### L 506.1000, L500.4050, L501.9520, L100.0100, L500.4100 ####[facility] [address] [place], [address] AST [Catalytic activity/Vol] 20 U/L Normal 15-37 [facility] Comment on above: Performed By: #### L 506.1000, L500.4050, L501.9520, L100.0100, L500.4100 ####[facility] [address] [place], [address] Bilirubin [Mass/Vol] 0.40 mg/dL Normal 0.20-1.00 [facility] Comment on above: Result Comment: For patients on eltrombopag therapy, use of Dimension [place] TBIL is not recommended. Performed By: #### L 506.1000, L500.4050, L501.9520, L100.0100, L500.4100 ####[facility] [address] [place], [address] BUN/CRE 25.6 RATIO High 10-20 [facility] Comment on above: Performed By: #### L 506.1000, L500.4050, L501.9520, L100.0100, L500.4100 ####[facility] [address] [place], [address] CA,Total 9.4 mg/dL Normal 8.5-10.1 [facility] Comment on above: Performed By: #### L 506.1000, L500.4050, L501.9520, L100.0100, L500.4100 ####[facility] [address] [place], [address] Chloride [Moles/Vol] 103 mmol/L Normal 98-107 [facility] Comment on above: Performed By: #### L 506.1000, L500.4050, L501.9520, L100.0100, L500.4100 ####[facility] [address] [place], [address] CO2 [Moles/Vol] 29.0 mmol/L Normal 21.0-32.0 [facility] Comment on above: Performed By: #### L 506.1000, L500.4050, L501.9520, L100.0100, L500.4100 ####[facility] [address] [place], [address] Creatinine [Mass/Vol] 0.78 mg/dL Normal 0.55-1.02 [facility] Comment on above: Result Comment: The validity of the calculated GFR GFRAA in patients over70 years has not been determined. Clinical correlation isessential. Performed By: #### L 506.1000, L500.4050, L501.9520, L100.0100, L500.4100 ####[facility] [address] [place], [address] EST GFR - AA 92 mL/min Normal >60 [facility] Comment on above: Result Comment: Afri can [place] GFR Calc Performed By: #### L 506.1000, L500.4050, L501.9520, L100.0100, L500.4100 ####[facility] [address] [place], [address] GAP 6 Normal 5-15 [facility] Comment on above: Performed By: #### L 506.1000, L500.4050, L501.9520, L100.0100, L500.4100 ####[facility] [address] [place], [address] GFR/1.73 sq M.predicted among non-blacks MDRD (S/P/Bld) [Vol rate/Area] 76 mL/min/{1.73_m2} Normal >60 [facility] Comment on above: Result Comment: Non- GFR Calc Performed By: #### L 506.1000, L500.4050, L501.9520, L100.0100, L500.4100 ####[facility] [address] [place], [address] Globulin (S) [Mass/Vol] 4.2 g/dL Normal 2.2-4.2 [facility] Comment on above: Performed By: #### L 506.1000, L500.4050, L501.9520, L100.0100, L500.4100 ####[facility] [address] [place], [address] Glucose [Mass/Vol] 100 mg/dL Normal 74-106 [facility] Comment on above: Result Comment: Fast ing Glucose result from 100 to 125 mg/dLsuggests IMPAIRED HOMEOSTASIS per A.D.A. criteria. Performed By: #### L 506.1000, L500.4050, L501.9520, L100.0100, L500.4100 ####[facility] [address] [place], [address] Potassium [Moles/Vol] 4.2 mmol/L Normal 3.5-5.1 [facility] Comment on above: Performed By: #### L 506.1000, L500.4050, L501.9520, L100.0100, L500.4100 ####[facility] [address] [place], [address] Sodium [Moles/Vol] 138 mmol/L Normal 136-145 [facility] Comment on above: Performed By: #### L 506.1000, L500.4050, L501.9520, L100.0100, L500.4100 ####[facility] [address] [place], [address] T PROT 7.6 g/dL Normal 6.4-8.2 [facility] Comment on above: Performed By: #### L 506.1000, L500.4050, L501.9520, L100.0100, L500.4100 ####[facility] [address] [place], [address] Urea nitrogen [Mass/Vol] 20 mg/dL High 7-18 [facility] Comment on above: Performed By: #### L 506.1000, L500.4050, L501.9520, L100.0100, L500.4100 ####[facility] [address] [place], [address] Lipid Profileon 12-15-2023 Cholesterol [Mass/Vol] 176 mg/dL Normal 200 [facility] Comment on above: Result Comment: <200 mg/dL Desirable 200-240 mg/dL Borderline >240 mg/dL High Risk Performed By: #### L 506.1000, L500.4050, L501.9520, L100.0100, L500.4100 ####[facility] [address] [place], [address] Cholesterol in HDL [Mass/Vol] 74 mg/dL Normal [facility] Comment on above: Result Comment: The drugs N-Acetylcysteine and Metamizole may falselydepress this assay. Reference Range HDL <40 mg/dL Low HDL Cholesterol HDL >or= 60 mg/dL High HDL Cholesterol Performed By: #### L 506.1000, L500.4050, L501.9520, L100.0100, L500.4100 ####[facility] [address] [place], [address] Cholesterol in LDL [Mass/Vol] 93 mg/dL Normal 0-130 [facility] Comment on above: Performed By: #### L 506.1000, L500.4050, L501.9520, L100.0100, L500.4100 ####[facility] [address] [place], [address] Cholesterol in VLDL [Mass/Vol] 9 mg/dL Normal 5-40 [facility] Comment on above: Performed By: #### L 506.1000, L500.4050, L501.9520, L100.0100, L500.4100 ####[facility] [address] [place], [address] Triglyceride [Mass/Vol] 46 mg/dL Normal [facility] Comment on above: Result Comment: The drugs N-Acetylcysteine and Metamizole may falselydepress this assay.Serum Triglycerides Reference Interval Normal <150 mg/dL Borderline high 150 - 199 mg/dL High 200 - 499 mg/dL Very High > or = 500 mg/dL Performed By: #### L 506.1000, L500.4050, L501.9520, L100.0100, L500.4100 ####[facility] [address] [place], [address] Thyroid Stim Hormone (TSH)on 12-15-2023 TSH 0.871 uIU/mL Normal 0.358-3.740 [facility] Comment on above: Performed By: #### L 506.1000, L500.4050, L501.9520, L100.0100, L500.4100 ####[facility] [address] [place], [address] Vitamin D,25 Hydroxyon 12-14 Vitamin D 25-OH 68.6 ng/mL Normal [facility] Comment on above: Result Comment: Yesenia min D 25(OH) Status Range Deficiency <20 ng/mL (50nmol/L) Insufficiency 20 - 30 ng/mL (50 - 75 nmol/L) Sufficiency 30 - 100 ng/mL (75 - 250 nmol/L) Toxicity >100 ng/mL (>250 nmol/L) Performed By: #### L 506.1000, L500.4050, L501.9520, L100.0100, L500.4100 ####[facility] [address] [place], [address] Cerv Spine 4 or 5 Viewson Cerv Spine 4 or 5 Views Normal [facility] L/S Spine Min 4 Viewson 10-29 L/S Spine Min 4 Views Normal [facility] Orthopedic Visit Reporton Orthopedic Visit Report Normal [facility] Cardiology Visit Reporton Cardiology Visit Report Normal [facility] NCS and/or EMG Patienton NCS and/or EMG Patient Normal [facility] Absolute lymphocyte countOrd ered By: Michael Snowden on 05-28-2023 Lymphocytes Auto (Unsp spec) [#/Vol] 1.31 10*3/uL 0.83-4.51 [facility] Automated lymphocyte count a s percentage of total leukocytesOrdered By: Michael Snowden on 05-28-2023 Lymphocytes/100 WBC Auto (Unsp spec) 20.5 % 19-41 [facility] Basophil percentageOrdered B y: Michael Snowden on 05-28-2023 Basophils/100 WBC (Bld) 0.5 % 0-1 [facility] Bilirubin [Mass/Vol] 0.80 mg/dL 0.20-1.00 [facility] Comment on above: For patients on eltr ombopag therapy, use of Dimension [place] TBIL is not recommended. Chloride [Moles/Vol] 106 mmol/L 98-107 [facility] Cholesterol [Mass/Vol] 168 mg/dL <200 [facility] Comment on above: <200 mg/dL Desirable 200-240 mg/dL Borderline >240 mg/dL High Risk Eosinophils/100 WBC (Bld) 2.4 % 0-5 [facility] Glucose [Mass/Vol] 87 mg/dL 74-106 [facility] Hemoglobin (Bld) [Mass/Vol] 12.7 g/dL 12.0-15. 0 [facility] Monocytes/100 WBC (Bld) 8.9 % 0-10 [facility] Neutrophils (Bld) [#/Vol] 4.3 10*3/uL 2.0-7.7 [facility] Neutrophils/100 WBC (Bld) 67.4 % 47-70 [facility] Potassium [Moles/Vol] 4.0 mmol/L 3.5-5.1 [facility] Protein [Mass/Vol] 7.6 g/dL 6.4-8.2 [facility] Sodium [Moles/Vol] 139 mmol/L 136-145 [facility] Triglyceride [Mass/Vol] 103 mg/dL <199 [facility] Comment on above: The drugs N-Acetylcy steine and Metamizole may falsely depress this assay.Serum Triglycerides Reference Interval Normal <150 mg/dL Borderline high 150 - 199 mg/dL High 200 - 499 mg/dL Very High > or = 500 mg/dL WBC (Bld) [#/Vol] 6.4 10*3/uL 4.4-11.0 [facility] Determination of erythrocyte mean corpuscular volume (MCV)Ordered By: Michael Snowden on 05-28-2023 MCV (RBC) [Entitic vol] 100.8 fL 81-99 [facility] Erythrocyte distribution wid th ratioOrdered By: [facility] on 05-28-2023 Erythrocyte distribution width (RBC) [Ratio] 13.2 % 11.6-14.6 [facility] Erythrocyte distribution wid th standard deviationOrdered By: [facility] on 05-28-2023 Erythrocyte distribution width (RBC) [Entitic vol] 48.9 fL 35.1-43.9 [facility] Hematocrit Auto (Bld) [Volum e fraction]Ordered By: [facility] on 05-28-2023 Hematocrit (Bld) [Volume fraction] 39.4 % 37-47 [facility] Immature granulocytes/100 WB C Auto (Bld)Ordered By: [facility] 05-28-2023 Immature granulocytes/100 WBC (Bld) 0.300 % 0.0-0.9 [facility] Comment on above: IG% - Immature Granu locytes (promyelocytes, myelocytes and metamyelocytes) > 1% indicates that a LEFT SHIFT is Present. Laboratory - Chemistry and C hemistry - challengeOrdered By: [facility] on 05-28-2023 Albumin/Globulin [Mass ratio] 0.8 {ratio} 0.9-2.4 [facility] ALP [Catalytic activity/Vol] 78 U/L 45-117 [facility] ALT [Catalytic activity/Vol] 29 U/L 13-56 [facility] Cholesterol in HDL [Mass/Vol] 70 mg/dL >40 [facility] Comment on above: The drugs N-Acetylcy steine and Metamizole may falsely depress this assay. Reference Range HDL <40 mg/dL Low HDL Cholesterol HDL >or= 60 mg/dL High HDL Cholesterol Cholesterol in LDL [Mass/Vol] 77 mg/dL 0-130 [facility] CO2 [Moles/Vol] 28.0 mmol/L 21.0-32.0 [facility] Globulin (S) [Mass/Vol] 4.2 g/dL 2.2-4.2 [facility] Urea nitrogen/Creatinine [Mass ratio] 22.7 mg/mg 10-20 [facility] Laboratory - Hematology and Cell countsOrdered By: Michael Snowden on 05-28-2023 MCH (RBC) [Entitic mass] 32.5 pg 27.0-32.0 [facility] MCHC (RBC) [Mass/Vol] 32.2 g/dL 32-36 [facility] Nucleated RBC/100 WBC (Bld) [Ratio] 0 % 0-5 [facility] Platelet mean volume (Bld) [Entitic vol] 9.8 fL 6.2-12.0 [facility] Platelets (Bld) [#/Vol] 219 10*3/uL 150-450 [facility] No Panel InformationOrdered By: Michael Snowden on 05-28-2023 Estimated GFR (MDRD) Amer 97 mL/min >60 [facility] Comment on above: GFR Calc Estimated GFR (MDRD) Non-Af Amer 80 mL/min >60 [facility] Comment on above: Non- GFR Calc Vitamin D 25-Hydroxy 81.9 ng/mL [facility] Comment on above: Vitamin D 25(OH) Sta tus Range Deficiency <20 ng/mL (50nmol/L) Insufficiency 20 - 30 ng/mL (50 - 75 nmol/L) Sufficiency 30 - 100 ng/mL (75 - 250 nmol/L) Toxicity >100 ng/mL (>250 nmol/L) VLDL Cholesterol 21 mg/dL 5-40 [facility] RBC Auto (Bld) [#/Vol]Ordere d By: Michael Snowden on 05-28-2023 RBC (Bld) [#/Vol] 3.91 10*6/uL 4.2-5.4 [facility] Serum or plasma calcium gianluca urement (mass/volume)Ordered By: Michael Snowden on 05-28-2023 Calcium [Mass/Vol] 9.0 mg/dL 8.5-10.1 [facility] Serum or plasma creatinine m easurement (mass/volume)Ordered By: Michael Snowden on 05-28-2023 Creatinine [Mass/Vol] 0.75 mg/dL 0.55-1.02 [facility] Comment on above: The validity of the calculated GFR & GFRAA in patients over 70 years has not been determined. Clinical correlation is essential. Serum or plasma thyroid stim ulating hormone (TSH) measurement (units/volume)Ordered By: Michael Snowden on 05-28-2023 TSH Qn 1.09 uIU/mL 0.358-3.74 [facility] Serum or plasma urea nitroge n measurement (mass/volume)Ordered By: Micheal Snowden on 05-28-2023 Urea nitrogen [Mass/Vol] 17 mg/dL 7-18 [facility] Thin prep Papanicolaou smear with manual screeningOrdered By: Michael Snowden on 05-28-2023 Thin prep Papanicolaou smear with manual screening 3.4 g/dL 3.2-5.0 [facility] [facility] Thin prep Papanicolaou smear with manual screening 23 U/L 15-37 [facility] Thin prep Papanicolaou smear with manual screening 5 5-15 [facility] Absolute lymphocyte countOrd ered By: Gaetano Cleary on 05-09-2023 Lymphocytes Auto (Unsp spec) [#/Vol] 1.22 10*3/uL 0.83-4.51 [facility] Automated lymphocyte count a s percentage of total leukocytesOrdered By: Gaetano Cleary on 05-09-2023 Lymphocytes/100 WBC Auto (Unsp spec) 20.0 % 19-41 [facility] Basophil percentageOrdered B y: Gaetano Cleary on 05-09-2023 Basophils/100 WBC (Bld) 0.7 % 0-1 [facility] Eosinophils/100 WBC (Bld) 2.3 % 0-5 [facility] Hemoglobin (Bld) [Mass/Vol] 12.3 g/dL 12.0-15. 0 [facility] Monocytes/100 WBC (Bld) 8.4 % 0-10 [facility] Neutrophils (Bld) [#/Vol] 4.2 10*3/uL 2.0-7.7 [facility] Neutrophils/100 WBC (Bld) 68.1 % 47-70 [facility] WBC (Bld) [#/Vol] 6.1 10*3/uL 4.4-11.0 [facility] Determination of erythrocyte mean corpuscular volume (MCV)Ordered By: Gaetano Cleary on 05-09-2023 MCV (RBC) [Entitic vol] 100.8 fL 81-99 [facility] Erythrocyte distribution wid th ratioOrdered By: Gaetano Cleary on 05-09-2023 Erythrocyte distribution width (RBC) [Ratio] 13.2 % 11.6-14.6 [facility] Erythrocyte distribution wid th standard deviationOrdered By: Gaetano Cleary on 05-09-2023 Erythrocyte distribution width (RBC) [Entitic vol] 49.1 fL 35.1-43.9 [facility] Erythrocyte sedimentation ra teOrdered By: Gaetano Cleary on 05-09-2023 ESR (Bld) [Velocity] 18 mm/h 0-30 [facility] Hematocrit Auto (Bld) [Volum e fraction]Ordered By: Gaetano Cleary on 05-09-2023 Hematocrit (Bld) [Volume fraction] 39.9 % 37-47 [facility] Immature granulocytes/100 WB C Auto (Bld)Ordered By: Gaetano Cleary 05-09-2023 Immature granulocytes/100 WBC (Bld) 0.500 % 0.0-0.9 [facility] Comment on above: IG% - Immature Granu locytes (promyelocytes, myelocytes and metamyelocytes) > 1% indicates that a LEFT SHIFT is Present. Laboratory - Hematology and Cell countsOrdered By: Gaetano Cleary on 05-09-2023 MCH (RBC) [Entitic mass] 31.1 pg 27.0-32.0 [facility] MCHC (RBC) [Mass/Vol] 30.8 g/dL 32-36 [facility] Nucleated RBC/100 WBC (Bld) [Ratio] 0 % 0-5 [facility] Platelet mean volume (Bld) [Entitic vol] 9.8 fL 6.2-12.0 [facility] Platelets (Bld) [#/Vol] 225 10*3/uL 150-450 [facility] No Panel InformationOrdered By: Gaetano Cleary on 05-09-2023 C-Reactive Protein Extended Range < 2.90 mg/L 0.0-3.0 [facility] Comment on above: C-Reactive Protein ( CRP) provides useful information for thediagnosis, therapy and monitoring of inflammatory processesand associated diseases. For the evaluation of Relative Riskfor Cardiovascular Disease, a High Sensitivity CRP (HSCRP)should be ordered. RBC Auto (Bld) [#/Vol]Ordere d By: Gaetano Cleary on 05-09-2023 RBC (Bld) [#/Vol] 3.96 10*6/uL 4.2-5.[address] [facility] Absolute lymphocyte countOrd ered By: Michael Snowden on 11-27-2022 Lymphocytes Auto (Unsp spec) [#/Vol] 1.24 10*3/uL 0.83-4.51 [facility] Basophil percentageOrdered B y: Michael Snowden on 11-27-2022 Basophils/100 WBC (Bld) 0.8 % 0-1 [facility] Bilirubin [Mass/Vol] 0.30 mg/dL 0.20-1.00 [facility] Comment on above: For patients on eltr ombopag therapy, use of Dimension [place] TBIL is not recommended. Chloride [Moles/Vol] 110 mmol/L 98-107 [facility] Cholesterol [Mass/Vol] 169 mg/dL <200 [facility] Comment on above: <200 mg/dL Desirable 200-240 mg/dL Borderline >240 mg/dL High Risk Eosinophils/100 WBC (Bld) 2.5 % 0-5 [facility] Glucose [Mass/Vol] 93 mg/dL 74-106 [facility] Neutrophils (Bld) [#/Vol] 3.3 10*3/uL 2.0-7.7 [facility] Neutrophils/100 WBC (Bld) 63.1 % 47-70 [facility] Potassium [Moles/Vol] 4.1 mmol/L 3.5-5.1 [facility] Protein [Mass/Vol] 7.4 g/dL 6.4-8.2 [facility] Sodium [Moles/Vol] 143 mmol/L 136-145 [facility] Triglyceride [Mass/Vol] 57 mg/dL <199 [facility] Comment on above: The drugs N-Acetylcy steine and Metamizole may falsely depress this assay.Serum Triglycerides Reference Interval Normal <150 mg/dL Borderline high 150 - 199 mg/dL High 200 - 499 mg/dL Very High > or = 500 mg/dL WBC (Bld) [#/Vol] 5.2 10*3/uL 4.4-11.0 [facility] Blood erythrocytes count (nu mber/volume)Ordered By: Michael Snowden on 11-27-2022 RBC (Bld) [#/Vol] 3.78 10*6/uL 4.2-5.[address] [facility] Blood hemoglobin measurement (mass/volume)Ordered By: Michael Snowden on 11-27-2022 Hemoglobin (Bld) [Mass/Vol] 11.9 g/dL 12.0-15. 0 [facility] Blood lymphocytes/100 leukoc ytesOrdered By: Michael Sp on 11-27-2022 Lymphocytes/100 WBC (Bld) 23.8 % 19-41 [facility] Blood monocytes/100 leukocyt esOrdered By: Michael Snowden on 11-27-2022 Monocytes/100 WBC (Bld) 9.4 % 0-10 [facility] Blood platelet mean volumeOr dered By: Michael Snowden on 11-27-2022 Platelet mean volume (Bld) [Entitic vol] 10.0 fL 6.2-12.0 [facility] Determination of erythrocyte mean corpuscular volume (MCV)Ordered By: Michael Snowden on 11-27-2022 MCV (RBC) [Entitic vol] 100.0 fL 81-99 [facility] Hematocrit Auto (Bld) [Volum e fraction]Ordered By: Michael Sp on 11-27-2022 Hematocrit (Bld) [Volume fraction] 37.8 % 37-47 [facility] Laboratory - Chemistry and C hemistry - challengeOrdered By: Michael Snowden on 11-27-2022 ALP [Catalytic activity/Vol] 68 U/L 45-117 [facility] ALT [Catalytic activity/Vol] 22 U/L 13-56 [facility] CO2 [Moles/Vol] 28.0 mmol/L 21.0-32.0 [facility] Globulin (S) [Mass/Vol] 4.1 g/dL 2.2-4.2 [facility] Urea nitrogen/Creatinine [Mass ratio] 21.3 mg/mg 10-20 [facility] Laboratory - Hematology and Cell countsOrdered By: Michael Snowden 11-27-2022 Erythrocyte distribution width (RBC) [Entitic vol] 47.8 fL 35.1-43.9 [facility] Erythrocyte distribution width (RBC) [Ratio] 13.1 % 11.6-14.6 [facility] Immature granulocytes/100 WBC (Bld) 0.400 % 0.0-0.9 [facility] Comment on above: IG% - Immature Granu locytes (promyelocytes, myelocytes and metamyelocytes) > 1% indicates that a LEFT SHIFT is Present. MCH (RBC) [Entitic mass] 31.5 pg 27.0-32.0 [facility] Nucleated RBC/100 WBC (Bld) [Ratio] 0 % 0-5 [facility] MCHC Auto (RBC) [Mass/Vol]Or dered By: Michael Snowden on 11-27-2022 MCHC (RBC) [Mass/Vol] 31.5 g/dL 32-36 [facility] No Panel InformationOrdered By: Michael Snowden on 11-27-2022 Estimated GFR (MDRD) Amer 112 mL/min >60 [facility] Comment on above: GFR Calc Estimated GFR (MDRD) Non-Af Amer 93 mL/min >60 [facility] Comment on above: Non- GFR Calc Thyroid Stimulating Hormone (TSH) 0.84 uIU/mL 0.358-3.74 [facility] Vitamin D 25-Hydroxy 87.7 ng/mL [facility] Comment on above: Vitamin D 25(OH) Sta tus Range Deficiency <20 ng/mL (50nmol/L) Insufficiency 20 - 30 ng/mL (50 - 75 nmol/L) Sufficiency 30 - 100 ng/mL (75 - 250 nmol/L) Toxicity >100 ng/mL (>250 nmol/L) Platelets bldOrdered By: Michael Snowden on 11-27-2022 Platelets (Bld) [#/Vol] 214 10*3/uL 150-450 [facility] Serum or plasma albumin gianluca urement (mass/volume)Ordered By: Michael Snowden on 11-27-2022 Albumin [Mass/Vol] 3.3 g/dL 3.2-5.0 [facility] Serum or plasma albumin/glob ulin mass ratioOrdered By: Michael Snowden on 11-27-2022 Albumin/Globulin [Mass ratio] 0.8 {ratio} 0.9-2.4 [facility] Serum or plasma calcium gianluca urement (mass/volume)Ordered By: Michael Snowden on 11-27-2022 Calcium [Mass/Vol] 9.2 mg/dL 8.5-10.1 [facility] Serum or plasma cholesterol in HDL measurement (mass/volume)Ordered By: Michael Snowden on 11-27-2022 Cholesterol in HDL [Mass/Vol] 66 mg/dL >40 [facility] Comment on above: The drugs N-Acetylcy steine and Metamizole may falsely depress this assay. Reference Range HDL <40 mg/dL Low HDL Cholesterol HDL >or= 60 mg/dL High HDL Cholesterol Serum or plasma cholesterol in VLDL measurement (mass/volume)Ordered By: Michael Snowden on 11-27-2022 Cholesterol in VLDL [Mass/Vol] 11 mg/dL 5-40 [facility] Serum or plasma creatinine m easurement (mass/volume)Ordered By: Michael Snowden on 11-27-2022 Creatinine [Mass/Vol] 0.66 mg/dL 0.55-1.02 [facility] Comment on above: The validity of the calculated GFR & GFRAA in patients over 70 years has not been determined. Clinical correlation is essential. Serum or plasma low density lipoprotein (LDL) cholesterol measurement (mass/volume)Ordered By: Michael Snowden on 11-27-2022 Cholesterol in LDL [Mass/Vol] 92 mg/dL 0-130 [facility] Serum or plasma urea nitroge n measurement (mass/volume)Ordered By: Michael Snowden on 11-27-2022 Urea nitrogen [Mass/Vol] 14 mg/dL 7-18 [facility] Thin prep Papanicolaou smear with manual screeningOrdered By: Michael Snowden on 11-27-2022 Thin prep Papanicolaou smear with manual screening 21 U/L 15-37 [facility] Thin prep Papanicolaou smear with manual screening 5 5-15 [facility] No Panel InformationOrdered By: Sae Brandt on 08-05-2022 Stool Calprotectin 32 ug/g 0-120 [facility] Comment on above: Concentration Interp retation Follow-Up<16 - 50 ug/g Normal None>50 -120 ug/g Borderline Re-evaluate in 4-6 weeks >120 ug/g Abnormal Repeat as clinically indicatedPerformed at: [address] [id number] Director: Alaina Alex MD, Phone: [phone] Stool Pancreatic Elastase 202 >200 [facility] Comment on above: Result Units: ug [address] st./g Severe Pancreatic Insufficiency: <100 Moderate Pancreatic Insufficiency: 100 - 200 Normal: >200Performed at: [address] [id number] Director: Alaina Alex MD, Phone: [phone] Stool lactoferrin detection by immunoassayOrdered By: Sae Brandt on 08-05-2022 Lactoferrin IA Ql (Stl) [facility] Lactoferrin IA Ql (Stl) [facility] Absolute lymphocyte countOrd ered By: Sae Brandt on 06-07-2022 Lymphocytes Auto (Unsp spec) [#/Vol] 1.34 10*3/uL 0.83-4.51 [facility] Atypical perinuclear antineu trophil cytoplasmic antibodies measurementOrdered By: Sae Brandt on 06-07-2022 Neutrophil cytoplasmic Ab.perinuclear.atypical IF (S) [Titer] <1:20 titer Neg:<1:20 [facility] Comment on above: The atypical pANCA p attern has been observed in asignificant percentage of patients with ulcerative colitis,primary sclerosing cholangitis and autoimmune hepatitis.Performed at: [address] [id number] Director: Olivier Jenkins PhD, Phone: [phone] at: [address] [id number] Director: Alaina Alex MD, Phone: [phone] Basophil percentageOrdered B y: Sae Brandt on 06-07-2022 Basophil percentage < 0.2 AI 0.0-0.[address] [facility] Basophils/100 WBC (Bld) 0.9 % 0-1 [facility] Bilirubin [Mass/Vol] 0.40 mg/dL 0.20-1.00 [facility] Comment on above: For patients on eltr ombopag therapy, use of Dimension [place] TBIL is not recommended. Chloride [Moles/Vol] 103 mmol/L 98-107 [facility] Eosinophils/100 WBC (Bld) 2.3 % 0-5 [facility] Glucose [Mass/Vol] 85 mg/dL 74-106 [facility] LDH [Catalytic activity/Vol] 226 U/L 84-246 [facility] Neutrophils (Bld) [#/Vol] 4.5 10*3/uL 2.0-7.7 [facility] Neutrophils/100 WBC (Bld) 67.7 % 47-70 [facility] Potassium [Moles/Vol] 3.6 mmol/L 3.5-5.1 [facility] Protein [Mass/Vol] 7.6 g/dL 6.4-8.2 [facility] Sodium [Moles/Vol] 140 mmol/L 136-145 [facility] WBC (Bld) [#/Vol] 6.6 10*3/uL 4.4-11.0 [facility] Blood erythrocytes count (nu mber/volume)Ordered By: Sae Brandt on 06-07-2022 RBC (Bld) [#/Vol] 4.03 10*6/uL 4.2-5.[address] [facility] Blood hemoglobin measurement (mass/volume)Ordered By: Sae Brandt on 06-07-2022 Hemoglobin (Bld) [Mass/Vol] 13.0 g/dL 12.0-15. 0 [facility] Blood lymphocytes/100 leukoc ytesOrdered By: Sae Brandt on 06-07-2022 Lymphocytes/100 WBC (Bld) 20.2 % 19-41 [facility] Blood monocytes/100 leukocyt esOrdered By: Sae Brandt on 06-07-2022 Monocytes/100 WBC (Bld) 8.6 % 0-10 [facility] Blood platelet mean volumeOr dered By: Sae Brandt on 06-07-2022 Platelet mean volume (Bld) [Entitic vol] 9.5 fL 6.2-12.0 [facility] Determination of erythrocyte mean corpuscular volume (MCV)Ordered By: Sae Brandt on 06-07-2022 MCV (RBC) [Entitic vol] 99.5 fL 81-99 [facility] Erythrocyte sedimentation ra teOrdered By: Sae Brandt on 06-07-2022 ESR (Bld) [Velocity] 30 mm/h 0-30 [facility] Hematocrit Auto (Bld) [Volum e fraction]Ordered By: Sae Brandt on 06-07-2022 Hematocrit (Bld) [Volume fraction] 40.1 % 37-47 [facility] Interpretation of serum or p lasma protein pattern by immunofixation (narrative resultOrdered By: Sae Brandt on 06-07-2022 Protein Fractions Immunofixation Micheal [Interp] See comment [facility] Comment on above: NOT OBSERVED Laboratory - Chemistry and C hemistry - challengeOrdered By: Sae Brandt on 06-07-2022 ALP [Catalytic activity/Vol] 72 U/L 45-117 [facility] ALT [Catalytic activity/Vol] 25 U/L 13-56 [facility] CO2 [Moles/Vol] 29.0 mmol/L 21.0-32.0 [facility] Urea nitrogen/Creatinine [Mass ratio] 16.9 mg/mg 10-20 [facility] Laboratory - Hematology and Cell countsOrdered By: Sae Brandt on 06-07-2022 Erythrocyte distribution width (RBC) [Entitic vol] 48.0 fL 35.1-43.9 [facility] Erythrocyte distribution width (RBC) [Ratio] 13.1 % 11.6-14.6 [facility] Immature granulocytes/100 WBC (Bld) 0.300 % 0.0-0.9 [facility] Comment on above: IG% - Immature Granu locytes (promyelocytes, myelocytes and metamyelocytes) > 1% indicates that a LEFT SHIFT is Present. MCH (RBC) [Entitic mass] 32.3 pg 27.0-32.0 [facility] Nucleated RBC/100 WBC (Bld) [Ratio] 0 % 0-5 [facility] MCHC Auto (RBC) [Mass/Vol]Or dered By: Sae Brandt on 06-07-2022 MCHC (RBC) [Mass/Vol] 32.4 g/dL 32-36 [facility] No Panel InformationOrdered By: Sae Friend on 06-07-2022 Addendum Document Comment . [facility] Comment on above: Protein electrophore sis scan will follow via computer,mail, or secretary administrative assistant delivery. Centromere B Antibody 0.3 AI 0.0-0.9 [facility] Endomysial IgA Antibody Negative Negative [facility] Estimated GFR (MDRD) Amer 94 mL/min >60 [facility] Comment on above: GFR Calc Estimated GFR (MDRD) Non-Af Amer 78 mL/min >60 [facility] Comment on above: Non- GFR Calc Immunoglobulin E 25 IU/mL 6-495 [facility] Miscellaneous Test See comment [facility] Comment on above: TEST RESULT LIMITSIB [...] developed and its performance characteristics determined by [facility]. It has not been cleared or approved by the Food and Drug Administration. The FDA has determined that such clearance or approval is not necessary.Atypical pANCA Negative Negative Comments Pattern is not suggestive of Inflammatory Bowel Disease TESTING PERFORMED AT [facility]. ORIGINAL REPORT ON FILE IN LAB CONTAINS ADDITIONAL TEST SITE INFORMATION. TRANSFERRER Antibody <0.2 AI 0.0-0.9 [facility] Platelets bldOrdered By: Raúl decker Friend on 06-07-2022 Platelets (Bld) [#/Vol] 214 10*3/uL 150-450 [facility] Serum DNA double strand anti body assay (units/volume)Ordered By: Sae Brandt on 06-07-2022 DNA double strand Ab Qn (S) 5 [IU]/mL 0-9 [facility] Comment on above: Negative <5 Equivoca l 5 - 9 Positive >9 Serum Jaci-1 antibody assay (u nits/volume)Ordered By: Sae Brandt on 06-07-2022 Jaci-1 extractable nuclear Ab Qn (S) <0.2 AI 0.0-0.9 [facility] Serum Scl-70 extractable nuc lear antibody assay (units/volume)Ordered By: Sae Brandt on 06-07-2022 SCL-70 extractable nuclear Ab Qn (S) <0.2 AI 0.0-0.9 [facility] Serum Espinosa extractable nucl ear antibody detectionOrdered By: Sae Brandt on 06-07-2022 Espinosa extractable nuclear Ab Ql (S) <0.2 AI 0.0-0.9 [facility] Serum [id number] measu rement by electrophoresisOrdered By: Sae Brandt on 06-07-2022 Alpha 1 globulin Elph [Mass/Vol] 0.3 g/dL 0.0-0.4 [facility] Alpha 1 globulin Elph [Mass/Vol] 0.7 g/dL 0.4-1.0 [facility] Serum classic neutrophil cyt oplasmic antibody assay (units/volume)Ordered By: Sae Brandt on 06-07-2022 Neutrophil cytoplasmic Ab.classic Qn (S) <1:20 titer Neg:<1:20 [facility] Serum globulin measurement ( mass/volume)Ordered By: Sae Brandt on 06-07-2022 Globulin (S) [Mass/Vol] 3.6 g/dL 2.2-3.9 [facility] Serum or plasma C reactive p rotein measurement (mass/volume)Ordered By: Sae Brandt on 06-07-2022 CRP [Mass/Vol] mg/L 0.0-3.0 [facility] Comment on above: C-Reactive Protein ( CRP) provides useful information for thediagnosis, therapy and monitoring of inflammatory processesand associated diseases. For the evaluation of Relative Riskfor Cardiovascular Disease, a High Sensitivity CRP (HSCRP)should be ordered. Serum or plasma IgA measurem ent (mass/volume)Ordered By: Sae Brandt on 06-07-2022 IgA [Mass/Vol] 338 mg/dL 64-422 [facility] Serum or plasma IgG measurem ent (mass/volume)Ordered By: Sae Brandt on 06-07-2022 IgG [Mass/Vol] 1428 mg/dL 586-1602 [facility] Serum or plasma IgM measurem ent (mass/volume)Ordered By: Sae Brandt on 06-07-2022 IgM [Mass/Vol] 92 mg/dL 26-217 [facility] Serum or plasma albumin gianluca urement (mass/volume)Ordered By: Sae Brandt on 06-07-2022 Albumin [Mass/Vol] 3.6 g/dL 2.9-4.4 [facility] Serum or plasma albumin/glob ulin mass ratioOrdered By: Saemary Brandt on 06-07-2022 Albumin/Globulin [Mass ratio] 0.9 {ratio} 0.9-2.4 [facility] Serum or plasma beta globuli n measurement by electrophoresis (mass/volume)Ordered By: Saemary Brandt on 06-07-2022 Beta globulin Elph [Mass/Vol] 1.0 g/dL 0.7-1.3 [facility] Serum or plasma calcium gianluca urement (mass/volume)Ordered By: Sae Brandt on 06-07-2022 Calcium [Mass/Vol] 9.5 mg/dL 8.5-10.1 [facility] Serum or plasma creatinine m easurement (mass/volume)Ordered By: Saemary Brandt on 06-07-2022 Creatinine [Mass/Vol] 0.77 mg/dL 0.55-1.02 [facility] Comment on above: The validity of the calculated GFR & GFRAA in patients over 70 years has not been determined. Clinical correlation is essential. Serum or plasma gamma globul in measurement by electrophoresis (mass/volume)Ordered By: Sae Brandt on 06-07-2022 Gamma globulin Elph [Mass/Vol] 1.6 g/dL 0.4-1.8 [facility] Serum or plasma immunoelectr ophoresis interpretation (nominal result)Ordered By: Sae Brandt on 06-07-2022 Interpretation IEP [Interp] Comment . [facility] Comment on above: No monoclonality det ected. Serum or plasma urea nitroge n measurement (mass/volume)Ordered By: Sae Brandt on 06-07-2022 Urea nitrogen [Mass/Vol] 13 mg/dL 7-18 [facility] Serum perinuclear neutrophil cytoplasmic antibody titer by immunofluorescenceOrdered By: Sae Brandt on 06-07-2022 Neutrophil cytoplasmic Ab.perinuclear IF (S) [Titer] <1:20 titer Neg:<1:20 [facility] Comment on above: The presence of posi [...] only by EIA. Ref. AM J Clin [id number];111:507-513. Serum tissue transglutaminas e IgA antibody assay (units/volume)Ordered By: Sae Brandt on 06-07-2022 tTG IgA Qn (S) <2 U/mL 0-3 [facility] Comment on above: Negative 0 - 3 Weak Positive 4 - 10 Positive >10 Tissue Transglutaminase (tTG) has been identified as the endomysial antigen. Studies have demonstr- ated that endomysial IgA antibodies have over 99% specificity for gluten sensitive enteropathy. Thin prep Papanicolaou smear with manual screeningOrdered By: Sae Brandt on 06-07-2022 Thin prep Papanicolaou smear with manual screening 23 U/L 15-37 [facility] Thin prep Papanicolaou smear with manual screening 8 5-15 [facility] Thin prep Papanicolaou smear with manual screening 1.1 0.7-1.7 [facility] Total protein bloodOrdered B y: Sae Brandt on 06-07-2022 Protein [Mass/Vol] 7.2 g/dL 6.0-8.5 [facility] Absolute lymphocyte countOrd ered By: Dr. Snowden on 03-26-2022 Lymphocytes Auto (Unsp spec) [#/Vol] 1.21 10*3/uL 0.83-4.51 [facility] Basophil percentageOrdered B y: Dr. Snowden on 03-26-2022 Basophils/100 WBC (Bld) 0.5 % 0-1 [facility] Bilirubin [Mass/Vol] 0.40 mg/dL 0.20-1.00 [facility] Comment on above: For patients on eltr ombopag therapy, use of Dimension [place] TBIL is not recommended. Chloride [Moles/Vol] 104 mmol/L 98-107 [facility] Cholesterol [Mass/Vol] 176 mg/dL <200 [facility] Comment on above: <200 mg/dL Desirable 200-240 mg/dL Borderline >240 mg/dL High Risk Eosinophils/100 WBC (Bld) 1.9 % 0-5 [facility] Glucose [Mass/Vol] 88 mg/dL 74-106 [facility] Neutrophils (Bld) [#/Vol] 4.0 10*3/uL 2.0-7.7 [facility] Neutrophils/100 WBC (Bld) 67.6 % 47-70 [facility] Potassium [Moles/Vol] 4.1 mmol/L 3.5-5.1 [facility] Protein [Mass/Vol] 7.0 g/dL 6.4-8.2 [facility] Sodium [Moles/Vol] 140 mmol/L 136-145 [facility] Triglyceride [Mass/Vol] 113 mg/dL <199 [facility] Comment on above: The drugs N-Acetylcy steine and Metamizole may falsely depress this assay.Serum Triglycerides Reference Interval Normal <150 mg/dL Borderline high 150 - 199 mg/dL High 200 - 499 mg/dL Very High > or = 500 mg/dL WBC (Bld) [#/Vol] 5.9 10*3/uL 4.4-11.0 [facility] Blood erythrocytes count (nu mber/volume)Ordered By: Dr. Snowden on 03-26-2022 RBC (Bld) [#/Vol] 4.01 10*6/uL 4.2-5.[address] [facility] Blood hemoglobin measurement (mass/volume)Ordered By: Dr. Snowden on 03-26-2022 Hemoglobin (Bld) [Mass/Vol] 12.6 g/dL 12.0-15. 0 [facility] Blood lymphocytes/100 leukoc ytesOrdered By: Dr. Snowden on 03-26-2022 Lymphocytes/100 WBC (Bld) 20.4 % 19-41 [facility] Blood monocytes/100 leukocyt esOrdered By: Dr. Snowden on 03-26-2022 Monocytes/100 WBC (Bld) 9.3 % 0-10 [facility] Blood platelet mean volumeOr dered By: Dr. Snowden on 03-26-2022 Platelet mean volume (Bld) [Entitic vol] 10.1 fL 6.2-12.0 [facility] Determination of erythrocyte mean corpuscular volume (MCV)Ordered By: Dr. Snowden on 03-26-2022 MCV (RBC) [Entitic vol] 99.0 fL 81-99 [facility] Hematocrit Auto (Bld) [Volum e fraction]Ordered By: Dr. Snowden on 03-26-2022 Hematocrit (Bld) [Volume fraction] 39.7 % 37-47 [facility] Laboratory - Chemistry and C hemistry - challengeOrdered By: Dr. Snowden on 03-26-2022 ALP [Catalytic activity/Vol] 64 U/L 45-117 [facility] ALT [Catalytic activity/Vol] 23 U/L 13-56 [facility] CO2 [Moles/Vol] 28.0 mmol/L 21.0-32.0 [facility] Globulin (S) [Mass/Vol] 3.6 g/dL 2.2-4.2 [facility] Urea nitrogen/Creatinine [Mass ratio] 18.9 mg/mg 10-20 [facility] Laboratory - Hematology and Cell countsOrdered By: Dr. Snowden on 03-26-2022 Erythrocyte distribution width (RBC) [Entitic vol] 47.1 fL 35.1-43.9 [facility] Erythrocyte distribution width (RBC) [Ratio] 13.1 % 11.6-14.6 [facility] Immature granulocytes/100 WBC (Bld) 0.300 % 0.0-0.9 [facility] Comment on above: IG% - Immature Granu locytes (promyelocytes, myelocytes and metamyelocytes) > 1% indicates that a LEFT SHIFT is Present. MCH (RBC) [Entitic mass] 31.4 pg 27.0-32.0 [facility] Nucleated RBC/100 WBC (Bld) [Ratio] 0 % 0-5 [facility] MCHC Auto (RBC) [Mass/Vol]Or dered By: Dr. Snowden on 03-26-2022 MCHC (RBC) [Mass/Vol] 31.7 g/dL 32-36 [facility] No Panel InformationOrdered By: Dr. Snowden on 03-26-2022 Estimated GFR (MDRD) Amer 98 mL/min >60 [facility] Comment on above: GFR Calc Estimated GFR (MDRD) Non-Af Amer 81 mL/min >60 [facility] Comment on above: Non- GFR Calc Thyroid Stimulating Hormone (TSH) 0.92 uIU/mL 0.358-3.74 [facility] Vitamin D 25-Hydroxy 78.9 ng/mL [facility] Comment on above: Vitamin D 25(OH) Sta tus Range Deficiency <20 ng/mL (50nmol/L) Insufficiency 20 - 30 ng/mL (50 - 75 nmol/L) Sufficiency 30 - 100 ng/mL (75 - 250 nmol/L) Toxicity >100 ng/mL (>250 nmol/L) Platelets bldOrdered By: Dr. Snowden on 03-26-2022 Platelets (Bld) [#/Vol] 221 10*3/uL 150-450 [facility] Serum or plasma albumin gianluca urement (mass/volume)Ordered By: Dr. Snowden on 03-26-2022 Albumin [Mass/Vol] 3.4 g/dL 3.2-5.0 [facility] Serum or plasma albumin/glob ulin mass ratioOrdered By: Dr. Snowden on 03-26-2022 Albumin/Globulin [Mass ratio] 0.9 {ratio} 0.9-2.4 [facility] Serum or plasma calcium gianluca urement (mass/volume)Ordered By: Dr. Snowden on 03-26-2022 Calcium [Mass/Vol] 8.8 mg/dL 8.5-10.1 [facility] Serum or plasma cholesterol in HDL measurement (mass/volume)Ordered By: Dr. Snowden on 03-26-2022 Cholesterol in HDL [Mass/Vol] 60 mg/dL >40 [facility] Comment on above: The drugs N-Acetylcy steine and Metamizole may falsely depress this assay. Reference Range HDL <40 mg/dL Low HDL Cholesterol HDL >or= 60 mg/dL High HDL Cholesterol Serum or plasma cholesterol in VLDL measurement (mass/volume)Ordered By: Dr. Snowden on 03-26-2022 Cholesterol in VLDL [Mass/Vol] 23 mg/dL 5-40 [facility] Serum or plasma creatinine m easurement (mass/volume)Ordered By: Dr. Snowden on 03-26-2022 Creatinine [Mass/Vol] 0.74 mg/dL 0.55-1.02 [facility] Comment on above: The validity of the calculated GFR & GFRAA in patients over 70 years has not been determined. Clinical correlation is essential. Serum or plasma low density lipoprotein (LDL) cholesterol measurement (mass/volume)Ordered By: Dr. Snowden on 03-26-2022 Cholesterol in LDL [Mass/Vol] 93 mg/dL 0-130 [facility] Serum or plasma urea nitroge n measurement (mass/volume)Ordered By: Dr. Snowden on 03-26-2022 Urea nitrogen [Mass/Vol] 14 mg/dL 7-18 [facility] Thin prep Papanicolaou smear with manual screeningOrdered By: Dr. Snowden on 03-26-2022 Thin prep Papanicolaou smear with manual screening 18 U/L 15-37 [facility] Thin prep Papanicolaou smear with manual screening 8 5-15 [facility] Absolute lymphocyte counton 09-25-2021 Lymphocytes Auto (Unsp spec) [#/Vol] 1.32 10*3/uL 0.83-4.51 [facility] Work Phone: Basophil percentageon 2021 Basophils/100 WBC (Bld) 0.6 % 0-1 [facility] Work Phone: Bilirubin [Mass/Vol] 0.40 mg/dL 0.20-1.00 [facility] Work Phone: Comment on above: For patients on eltr ombopag therapy, use of Dimension [place] TBIL is not recommended. Chloride [Moles/Vol] 106 mmol/L 98-107 [facility] Work Phone: [phone] Cholesterol [Mass/Vol] 170 mg/dL <200 [facility] Work Phone: [phone] Comment on above: <200 mg/dL Desirable 200-240 mg/dL Borderline >240 mg/dL High Risk Eosinophils/100 WBC (Bld) 2.4 % 0-5 [facility] Work Phone: [phone] Glucose [Mass/Vol] 96 mg/dL 74-106 [facility] Work Phone: [phone] Neutrophils (Bld) [#/Vol] 4.8 10*3/uL 2.0-7.7 [facility] Work Phone: [phone] Neutrophils/100 WBC (Bld) 68.8 % 47-70 [facility] Work Phone: [phone] Potassium [Moles/Vol] 3.9 mmol/L 3.5-5.1 [facility] Work Phone: [phone] Protein [Mass/Vol] 7.2 g/dL 6.4-8.2 [facility] Work Phone: [phone] Sodium [Moles/Vol] 141 mmol/L 136-145 [facility] Work Phone: [phone] Triglyceride [Mass/Vol] 93 mg/dL <199 [facility] Work Phone: [phone] Comment on above: The drugs N-Acetylcy steine and Metamizole may falsely depress this assay.Serum Triglycerides Reference Interval Normal <150 mg/dL Borderline high 150 - 199 mg/dL High 200 - 499 mg/dL Very High > or = 500 mg/dL WBC (Bld) [#/Vol] 7.0 10*3/uL 4.4-11.0 [facility] Work Phone: [phone] Blood erythrocytes count (nu mber/volume)on 09-25-2021 RBC (Bld) [#/Vol] 4.05 10*6/uL 4.2-5.[address] [facility] Work Phone: [phone] Blood hemoglobin measurement (mass/volume)on 09-25-2021 Hemoglobin (Bld) [Mass/Vol] 12.8 g/dL 12.0-15. 0 [facility] Work Phone: Blood lymphocytes/100 leukoc yteson 09-25-2021 Lymphocytes/100 WBC (Bld) 18.9 % 19-41 [facility] Work Phone: Blood monocytes/100 leukocyt eson 09-25-2021 Monocytes/100 WBC (Bld) 9.0 % 0-10 [facility] Work Phone: Blood platelet mean volumeon 09-25-2021 Platelet mean volume (Bld) [Entitic vol] 10.1 fL 6.2-12.0 [facility] Work Phone: [phone] Determination of erythrocyte mean corpuscular volume (MCV)on 09-25-2021 MCV (RBC) [Entitic vol] 98.3 fL 81-99 [facility] Work Phone: [phone] Hematocrit Auto (Bld) [Volum e fraction]on 09-25-2021 Hematocrit (Bld) [Volume fraction] 39.8 % 37-47 [facility] Work Phone: [phone] Laboratory - Chemistry and C hemistry - challengeon 09-25-2021 ALP [Catalytic activity/Vol] 62 U/L 45-117 [facility] Work Phone: [phone] ALT [Catalytic activity/Vol] 20 U/L 13-56 [facility] Work Phone: [phone] CO2 [Moles/Vol] 29.0 mmol/L 21.0-32.0 [facility] Work Phone: [phone] Globulin (S) [Mass/Vol] 3.7 g/dL 2.2-4.2 [facility] Work Phone: [phone] Urea nitrogen/Creatinine [Mass ratio] 17.0 mg/mg 10-20 [facility] Work Phone: Laboratory - Hematology and Cell countson 09-25-2021 Erythrocyte distribution width (RBC) [Entitic vol] 47.1 fL 35.1-43.9 [facility] Work Phone: Erythrocyte distribution width (RBC) [Ratio] 13.2 % 11.6-14.6 [facility] Work Phone: Immature granulocytes/100 WBC (Bld) 0.300 % 0.0-0.9 [facility] Work Phone: Comment on above: IG% - Immature Granu locytes (promyelocytes, myelocytes and metamyelocytes) > 1% indicates that a LEFT SHIFT is Present. MCH (RBC) [Entitic mass] 31.6 pg 27.0-32.0 [facility] Work Phone: Nucleated RBC/100 WBC (Bld) [Ratio] 0 % 0-5 [facility] Work Phone: MCHC Auto (RBC) [Mass/Vol]on 09-25-2021 MCHC (RBC) [Mass/Vol] 32.2 g/dL 32-36 [facility] Work Phone: No Panel Informationon 09-25 Estimated GFR (MDRD) Amer 95 mL/min >60 [facility] Work Phone: Comment on above: GFR Calc Estimated GFR (MDRD) Non-Af Amer 78 mL/min >60 [facility] Work Phone: Comment on above: Non- GFR Calc Thyroid Stimulating Hormone (TSH) 0.89 uIU/mL 0.358-3.74 [facility] Work Phone: Vitamin D 25-Hydroxy 76.5 ng/mL [facility] Work Phone: Comment on above: Vitamin D 25(OH) Sta tus Range Deficiency <20 ng/mL (50nmol/L) Insufficiency 20 - 30 ng/mL (50 - 75 nmol/L) Sufficiency 30 - 100 ng/mL (75 - 250 nmol/L) Toxicity >100 ng/mL (>250 nmol/L) Platelets bldon 09-25-2021 Platelets (Bld) [#/Vol] 227 10*3/uL 150-450 [facility] Work Phone: Serum or plasma albumin gianluca urement (mass/volume)on 09-25-2021 Albumin [Mass/Vol] 3.5 g/dL 3.2-5.0 [facility] Work Phone: Serum or plasma albumin/glob ulin mass ratioon 09-25-2021 Albumin/Globulin [Mass ratio] 0.9 {ratio} 0.9-2.4 [facility] Work Phone: Serum or plasma calcium gianluca urement (mass/volume)on 09-25-2021 Calcium [Mass/Vol] 9.2 mg/dL 8.5-10.1 [facility] Work Phone: Serum or plasma cholesterol in HDL measurement (mass/volume)on 09-25-2021 Cholesterol in HDL [Mass/Vol] 60 mg/dL >40 [facility] Work Phone: Comment on above: The drugs N-Acetylcy steine and Metamizole may falsely depress this assay. Reference Range HDL <40 mg/dL Low HDL Cholesterol HDL >or= 60 mg/dL High HDL Cholesterol Serum or plasma cholesterol in VLDL measurement (mass/volume)on 09-25-2021 Cholesterol in VLDL [Mass/Vol] 19 mg/dL 5-40 [facility] Work Phone: Serum or plasma creatinine m easurement (mass/volume)on 09-25-2021 Creatinine [Mass/Vol] 0.76 mg/dL 0.55-1.02 [facility] Work Phone: Comment on above: The validity of the calculated GFR & GFRAA in patients over 70 years has not been determined. Clinical correlation is essential. Serum or plasma low density lipoprotein (LDL) cholesterol measurement (mass/volume)on 09-25-2021 Cholesterol in LDL [Mass/Vol] 91 mg/dL 0-130 [facility] Work Phone: Serum or plasma urea nitroge n measurement (mass/volume)on 09-25-2021 Urea nitrogen [Mass/Vol] 13 mg/dL 7-18 [facility] Work Phone: Thin prep Papanicolaou smear with manual screeningon 09-25-2021 Thin prep Papanicolaou smear with manual screening 15 U/L 15-37 [facility] Work Phone: Thin prep Papanicolaou smear with manual screening 6 5-15 [facility] Work Phone: Lab Report: Basic Metabolic Profile (BMP)on 12-17-2016 Anion gap 6 mmol/L Invalid Interpretation Code 5-15 [facility] Work Phone: [phone] BUN/Creatinine Ratio 14.8 RATIO Invalid Interpretation Code 10-20 [facility] Work Phone: [phone] Calcium 9.2 mg/dL Invalid Interpretation Code 8.5-10.1 [facility] Work Phone: [phone] Chloride 102 mmol/L Invalid Interpretation Code 98-107 [facility] Work Phone: [phone] CO2 30.0 mmol/L Invalid Interpretation Code 21.0-32.0 [facility] Work Phone: [phone] Creatinine 0.74 mg/dL Invalid Interpretation Code 0.55-1.02 [facility] Work Phone: [phone] eGFR (non-black) 82 mL/min/{1.73_m2} Invalid Interpretation Code >60 [facility] Work Phone: [phone] eGFR (non-black) 99 mL/min/{1.73_m2} Invalid Interpretation Code >60 [facility] Work Phone: [phone] Glucose 90 mg/dL Invalid Interpretation Code 70-110 [facility] Work Phone: [phone] Potassium 3.9 mmol/L Invalid Interpretation Code 3.5-5.1 [facility] Work Phone: [phone] Sodium 138 mmol/L Invalid Interpretation Code 136-145 [facility] Work Phone: [phone] Urea nitrogen 11 mg/dL Invalid Interpretation Code 7-18 [facility] Work Phone: Office Visiton 12-17-2016 Documentation of current medications (procedure) Done Invalid Interpretation Code [facility] Work Phone: [phone] Fall risk assessment Yes Invalid Interpretation Code [facility] Work Phone: Clinical Lists Update: Pre business continuity manager 06-07-2016 Left ventricular Ejection fraction 65-70 Invalid Interpretation Code [facility] Work Phone: Office Visiton 06-13-2015 Tobacco use CPHS Never smoker Invalid Interpretation Code [facility] Work Phone: External Other: Preferred Me thod of Contacton 03-08-2015 Patient's prefered method of contact phone Invalid Interpretation Code [facility] Work Phone: Office Visit: [facility] 03-08-20 Dietary management education, guidance, and counseling (procedure) yes Invalid Interpretation Code [facility] Work Phone: General cardiovascular disease 10Y risk [#] [place] 15 % Invalid Interpretation Code [facility] Work Phone: Clinical Lists Update: business continuity manager 11-12-2014 Magnesium 1.6 mg/dL Low [facility] Work Phone: Office Visiton 08-05-2014 cardiac risk group B Invalid Interpretation Code [facility] Work Phone: Clinical Lists Update: 05-23-2014 Cholesterol 171 mg/dL Invalid Interpretation Code [facility] Work Phone: [phone] HDL Cholesterol 46 mg/dL Invalid Interpretation Code [facility] Work Phone: LDL Cholesterol 109 mg/dL Invalid Interpretation Code [facility] Work Phone: [phone] Triglyceride 78 mg/dL Invalid Interpretation Code [facility] Work Phone: very low density lipoproteins 16 mg/dL Invalid Interpretation Code [facility] Work Phone: Clinical Lists Update: 05-22-2014 basophils as percent of blood leukocytes, manual count 0.5 % Invalid Interpretation Code [facility] Work Phone: [phone] eosinophils as percent of blood leukocytes, manual count 0.7 % Invalid Interpretation Code [facility] Work Phone: [phone] Erythrocytes (RBC) 4.37 10*6/uL Invalid Interpretation Code [facility] Work Phone: [phone] Hematocrit (HCT) 40.7 % Invalid Interpretation Code [facility] Work Phone: [phone] Hemoglobin (HGB) 13.9 g/dL Invalid Interpretation Code [facility] Work Phone: [phone] Lymphocytes/100 leukocytes 15.7 % Low [facility] Work Phone: [phone] MCH 31.8 pg Invalid Interpretation Code [facility] Work Phone: [phone] MCHC 34.2 g/dL Invalid Interpretation Code [facility] Work Phone: [phone] MCV 93.1 fL Invalid Interpretation Code [facility] Phone: [phone] Monocytes/100 leukocytes 6.6 % Invalid Interpretation Code [facility] Work Phone: [phone] neutrophils, band form as percent of blood leukocytes, manual count 76.3 % High [facility] Work Phone: [phone] Platelets 244 10*3/mm3 Invalid Interpretation Code [facility] Work Phone: [phone] RDW-CA 13.0 % Invalid Interpretation Code [facility] Work Phone: [phone] Thyroid stimulating hormone (TSH) 0.88 u[iU]/mL Invalid Interpretation Code [facility] Work Phone: [phone] WBC (Leukocytes) 6.1 10*3/uL Invalid Interpretation Code [facility] Work Phone: [phone] Clinical Lists Update: Prelo business continuity manager 06-23-2012 Albumin 4.0 g/dL Invalid Interpretation Code [facility] Work Phone: [phone] Albumin/Globulin Ratio 1.0 {ratio} Invalid Interpretation Code [facility] Work Phone: [phone] Alkaline phosphatase (ALP) 95 U/L Inval id Interpretation Code [facility] Work Phone: [phone] Aspartate aminotransferase (AST) 24 U/L Invalid Interpretation Code [facility] Work Phone: [phone] Bilirubin (total) 0.20 mg/dL Invalid Interpretation Code [facility] Work Phone: [phone] Globulin 3.9 g/dL Invalid Interpretation Code [facility] Work Phone: [phone] Protein 7.9 g/dL Invalid Interpretation Code [facility] Work Phone: Lab Reporton 06-13-2011 Alanine aminotransferase (ALT) 42 U/L Invalid Interpretation Code [facility] Work Phone: [phone] Bilirubin (direct) 0.12 mg/dL Invalid Interpretation Code [facility] Work Phone: Vital Signs Date Time Vital Sign Value Performing Clinician Facility 08-13-2024 07:56-0400 Diastolic blood pressure 103 mm[Hg] Seth Chowdary MD Work Phone: [facility] 08-13-2024 07:56-0400 Heart rate 98 /min Seth Chowdary MD Work Phone: [facility] 08-13-2024 07:56-0400 Systolic blood pressure 148 mm[Hg] Seth Chowdary MD Work Phone: [facility] 08-13-2024 07:52-0400 Body height 147.3 cm Seth Chowdary MD Work Phone: [facility] 08-13-2024 07:52-0400 Body mass index (BMI) [Ratio] 31.33 kg/m2 Seth Chowdary MD Work Phone: [facility] 08-13-2024 07:52-0400 Body weight 68 kg Seth Chowdary MD Work Phone: [facility] 08-13-2024 07:52-0400 Respiratory rate 18 /min Seth Chowdary MD Work Phone: [facility] 07-21-2024 12:56-0400 Body height 147.3 cm Jovanni Matthew MD Work Phone: [facility] 07-21-2024 12:56-0400 Body mass index (BMI) [Ratio] 31.35 kg/m2 Jovanni Matthew MD Work Phone: [facility] 07-21-2024 12:56-0400 Body weight 68.04 kg Jovanni Matthew MD Work Phone: [facility] 07-21-2024 12:56-0400 Diastolic blood pressure 75 mm[Hg] Jovanni Matthew MD Work Phone: [facility] 07-21-2024 12:56-0400 Heart rate 98 /min Jovanni Matthew MD Work Phone: [facility] 07-21-2024 12:56-0400 SaO2% (BldA) [Mass fraction] 96 % Jovanni Matthew MD Work Phone: [facility] 07-21-2024 12:56-0400 Systolic blood pressure 109 mm[Hg] Jovanni Matthew MD Work Phone: [facility] 05-21-2024 08:45-0500 Heart rate 71 /min Dr. Michael Snowden MD Work Phone: [facility] 05-21-2024 08:40-0500 Body temperature 98 [degF] Dr. Michael Snowden MD Work Phone: [facility] 05-21-2024 08:40-0500 Diastolic blood pressure 87 mm[Hg] Dr. Michael Snowden MD Work Phone: [facility] 05-21-2024 08:40-0500 Respiratory rate 17 /min Dr. Michael Snowden MD Work Phone: [facility] 05-21-2024 08:40-0500 SaO2% (BldA) [Mass fraction] 95 % Dr. Michael Snowden MD Work Phone: [facility] 05-21-2024 08:40-0500 Systolic blood pressure 144 mm[Hg] Dr. Michael Snowden MD Work Phone: [facility] 05-18-2024 11:00-0500 Body mass index (BMI) [Ratio] 32.5 kg/m2 Dr. Michael Snowden MD Work Phone: 4(589)367-518164 [place] [address] 05-18-2024 11:00-0500 Body weight 70.[address] Michael Snowden MD Work Phone: 5(115)932-512447 [place] [address] 05-15-2024 05:41-0500 Inhaled oxygen flow rate 97 L/min Dr. Michael Snowden MD Work Phone: 0(241)908-454647 [place] [address] 05-12-2024 13:31-0500 Body height 147.[address] Michael Snowden MD Work Phone: 9(405)941-921747 [place] [address] 04-16-2024 10:20-0500 Heart rate 70 /min Dr. Michael Snowden MD Work Phone: 2(925)600-372647 [place] [address] 04-16-2024 10:10-0500 Body temperature 98.3 [degF] Dr. Michael Snowden MD Work Phone: 6(083)678-621047 [place] [address] 04-16-2024 10:10-0500 Diastolic blood pressure 71 mm[Hg] Dr. Michael Snowden MD Work Phone: 9(781)704-930747 [place] [address] 04-16-2024 10:10-0500 Respiratory rate 18 /min Dr. Michael Snowden MD Work Phone: 2(848)796-198147 [place] [address] 04-16-2024 10:10-0500 SaO2% (BldA) [Mass fraction] 95 % Dr. Michael Snowden MD Work Phone: 8(286)994-888247 [place] [address] 04-16-2024 10:10-0500 Systolic blood pressure 109 mm[Hg] Dr. Michael Snowden MD Work Phone: 2(099)523-985647 [place] [address] 04-15-2024 15:36-0500 Body weight 70.[address] Michael Snowden MD Work Phone: 3(431)251-747947 [place] [address] 04-11-2024 14:41-0500 Body mass index (BMI) [Ratio] 32.5 kg/m2 Dr. Michael Snowden MD Work Phone: 8(702)525-645447 [place] [address] 03-31-2024 00:00-0500 Body temperature 98 [degF] Dr. Michael Snowden MD Work Phone: 4(780)512-216747 [place] [address] 03-31-2024 00:00-0500 Diastolic blood pressure 78 mm[Hg] Dr. Michael Snowden MD Work Phone: [facility] 03-31-2024 00:00-0500 Heart rate 84 /min Dr. Michael Snowden MD Work Phone: [facility] 03-31-2024 00:00-0500 Respiratory rate 16 /min Dr. Michael Snowden MD Work Phone: [facility] 03-31-2024 00:00-0500 SaO2% (BldA) [Mass fraction] 99 % Dr. Michael Snowden MD Work Phone: 2(701)547-603064 [place] [address] 03-31-2024 00:00-0500 Systolic blood pressure 145 mm[Hg] Dr. Michael Snowden MD Work Phone: 3(147)239-337864 [place] [address] 05-09-2023 13:06-0500 Body height 149.[address] Michael Snowden Work Phone: 7(016)452-497664 [place] [address] 05-09-2023 13:06-0500 Body mass index (BMI) [Ratio] 30.9 kg/m2 Dr. Michael Snowden Work Phone: 1(713)122-963864 [place] [address] 05-09-2023 13:06-0500 Body weight 69.[address] Michael Snwoden Work Phone: [facility] 05-09-2023 13:06-0500 Diastolic blood pressure 86 mm[Hg] Dr. Michael Snowden Work Phone: [facility] 05-09-2023 13:06-0500 Heart rate 59 /min Dr. Michael Snowden Work Phone: [facility] 05-09-2023 13:06-0500 Respiratory rate 18 /min Dr. Michael Snowden Work Phone: [facility] 05-09-2023 13:06-0500 SaO2% (BldA) [Mass fraction] 95 % Dr. Michael Sonwden Work Phone: [facility] 05-09-2023 13:06-0500 Systolic blood pressure 154 mm[Hg] Dr. Michael Snowden Work Phone: [facility] 01-06-2023 14:34-0400 Body height 149.[address] Michael Snowden Work Phone: [facility] 01-06-2023 14:34-0400 Body mass index (BMI) [Ratio] 29.9 kg/m2 Dr. Michael Snowden Work Phone: 1(498)143-761864 [place] [address] 01-06-2023 14:34-0400 Body weight 67.[address] Michael Snowden Work Phone: 3(653)358-172764 [place] [address] 01-06-2023 14:34-0400 Diastolic blood pressure 80 mm[Hg] Dr. Michael Snowden Work Phone: 4(905)074-121264 [place] [address] 01-06-2023 14:34-0400 Heart rate 54 /min Dr. Michael Snowden Work Phone: 4(867)080-389364 [place] [address] 01-06-2023 14:34-0400 Respiratory rate 18 /min Dr. Michael Snowden Work Phone: 1(786)470-151264 [place] [address] 01-06-2023 14:34-0400 SaO2% (BldA) [Mass fraction] 95 % Dr. Michael Snowden Work Phone: [facility] 01-06-2023 14:34-0400 Systolic blood pressure 171 mm[Hg] Dr. Michael Snowden Work Phone: [facility] 01-04-2022 08:47-0400 Body height 149.[address] Michael Snowden Work Phone: [facility] Work Phone: 01-04-2022 08:47-0400 Body mass index (BMI) [Ratio] 31.3 kg/m2 Dr. Michael Snowden Work Phone: [facility] Work Phone: 01-04-2022 08:47-0400 Body weight 70.[address] Michael Snowden Work Phone: [facility] Work Phone: 01-04-2022 08:47-0400 Heart rate 52 /min Dr. Michael Snowden Work Phone: [facility] Work Phone: 01-04-2022 08:47-0400 Respiratory rate 16 /min Dr. Michael Snowden Work Phone: [facility] Work Phone: 01-04-2022 08:47-0400 SaO2% (BldA) [Mass fraction] 98 % Dr. Michael Snowden Work Phone: [facility] Work Phone: 12-17-2016 13:13-0400 BMI (Body Mass Index) 34.13 kg/m2 [facility] Work Phone: 12-17-2016 13:13-0400 BP Diastolic 80 mm[Hg] [facility] Work Phone: 12-17-2016 13:13-0400 BP Systolic 170 mm[Hg] [facility] Work Phone: 12-17-2016 13:13-0400 Height 149.86 cm [facility] Work Phone: 12-17-2016 13:13-0400 Pulse (Heart Rate) 56 /min [facility] Work Phone: 12-17-2016 13:13-0400 Respiratory Rate 20 /min [facility] Work Phone: 12-17-2016 13:13-0400 Weight 76.66 kg [facility] Work Phone: 06-13-2015 15:00-0400 BSA (Body Surface Area) 1.7 m2 [facility] Work Phone: 08-05-2014 13:18-0400 BP Diastolic 80 mm[Hg] [facility] Work Phone: 08-05-2014 [...] Date Encounter Type Care Provider Facility Start: 09-28-[address] [facility] Facility:[facility] Start: 09-21-2024 ambulatory Nikia JAVIER Facility:[facility] Start: 09-14-2024 ambulatory Nikia alonso OLS Facility:[facility] Start: 09-07-2024 End: 09-07-2024 Telephone encounter Ajay Grant MD Work Phone: Endocrinology Start: 09-07-2024 ambulatory Nikia alonso OLS Facility:[facility] Start: 08-31-2024 ambulatory Michael Snowden Facility:[facility] Start: 08-31-2024 Audra Cabezas Start: 08-25-2024 End: 08-25-2024 ambulatory Ajay Grant MD Work Phone: Endocrinology Comment on above: Medication denial Start: 08-25-2024 End: 08-25-2024 E-mail encounter from caregiver Ajay Grant MD Work Phone: Endocrinology Start: 08-24-2024 ambulatory Nikia alonso OLS Facility:[facility] Start: 08-24-2024 Nikia alonso MD -ANTHONY Cabezas Start: 08-22-2024 End: 08-22-2024 Telephone encounter Ajay Grant MD Work Phone: Endocrinology & Met[facility] [place] Comment on above: Medication Preauthor ization (Evenity 210mg- Denied) Start: 08-17-2024 End: 08-17-[address] Michael Snowden MD Work Phone: [facility] Work Phone: Start: 08-17-2024 End: 08-17-2024 Nikia Henderson MD -ANTHONY Cabezas Start: 08-16-2024 End: 08-17-2024 ambulatory Ajay Grant MD Work Phone: Endocrinology Comment on above: Medication update Start: 08-16-2024 End: 08-16-2024 E-mail encounter from caregiver Ajay Grant MD Work Phone: Endocrinology Start: 08-13-2024 End: 08-13-2024 Patient encounter procedure Seth Chowdary MD Work Phone: [facility] [place] Comment on above: Acquired spondylolis thesis (Primary Dx); Cervical spondylosis without myelopathy; Neural foraminal stenosis of lumbar spine; Closed compression fracture of body of L1 vertebra (HCC) Start: 08-13-2024 End: 08-13-2024 ambulatory SETH CHOWDARY Facility:[facility] Start: 08-10-2024 End: 08-10-[address] Michael Snowden MD Work Phone: [facility] Work Phone: Start: 08-10-2024 End: 08-10-2024 Nikia Cabezas Start: 08-10-2024 End: 08-10-2024 ambulatory Nikia JAVIER Facility:[facility] Start: 08-03-2024 End: 08-03-[address] Michael Snowden MD Work Phone: [facility] Work Phone: Start: 08-03-2024 End: 08-03-2024 Audra Cabezas Start: 08-03-2024 End: 08-03-2024 ambulatory Michael Snowden Facility:[facility] Start: 07-27-2024 End: 07-27-2024 Audra Cabezas Start: 07-27-2024 End: 07-27-2024 ambulatory Audra JAVIER Facility:[facility] Start: 07-21-2024 End: 07-21-2024 ambulatory MILLIE PETTY Facility:[facility] Start: 07-21-2024 End: 07-21-2024 ambulatory AJAY GRANT Facility:[facility] Start: 07-21-2024 End: 07-21-2024 Patient encounter procedure Jovanni Matthew MD Work Phone: Rehab Medicine Comment on above: Osteopenia, unspecif ied location (Primary Dx); History of vertebral compression fracture; Spondylolisthesis, grade 3 Start: 07-21-2024 End: 07-21-2024 ambulatory JOVANNI NAVEEDLANDONGROVER Facility:[facility] Start: 07-20-2024 End: 07-20-[address] Michael Snowden MD Work Phone: [facility] Work Phone: Start: 07-20-2024 End: 07-20-2024 Nikia Cabezas Start: 07-20-2024 End: 07-20-2024 ambulatory Efewongbe Oleghe OLS Facility:[facility] Start: 07-13-2024 End: 07-13-[address] Michael Snowden MD Work Phone: [facility] Work Phone: Start: 07-13-2024 End: 07-13-2024 Nikia Cabezas Start: 07-13-2024 End: 07-13-2024 ambulatory Efewongbe Oleghe OLS Facility:[facility] Start: 07-06-2024 Registered Referred Nikia Cabezas Start: 07-06-2024 End: 07-06-2024 Nikia Cabezas Start: 07-06-2024 End: 07-06-2024 ambulatory Efewongbe Oleghe OLS Facility:[facility] Start: 06-29-2024 Registered Referred Audra izaguirre [employer] -[facility] [place] Start: 06-29-2024 End: 06-29-2024 Audra Drake [employer] -[facility] [place] Start: 06-29-2024 End: 06-29-2024 ambulatory Audra Drake OLS Facility:[facility] Start: 06-23-2024 End: 06-23-2024 ambulatory Audra Drake Facility:[facility] Start: 06-23-2024 End: 06-23-2024 Audra Drake [employer] -[facility] Work Phone: Start: 06-22-2024 End: 06-22-[address] Michael Snowden MD Work Phone: [facility] Work Phone: Start: 06-22-2024 Registered Referred Audra izaguirre [employer] -[place] - [place] Start: 06-22-2024 End: 06-22-2024 Audra Drake [employer] -[facility] [place] Start: 06-22-2024 End: 06-22-2024 ambulatory Audra Drake OLS Facility:[facility] Start: 06-15-2024 End: 06-15-[address] Michael Snowden MD Work Phone: [facility] Work Phone: Start: 06-15-2024 End: 06-15-2024 Departed Referred Nikia Cabezas Start: 06-15-2024 Registered Referred Nikia Cabezas Start: 06-15-2024 End: 06-15-2024 Nikia Cabezas Start: 06-15-2024 End: 06-15-2024 ambulatory Nikia Henderson OLS Facility:[facility] Start: 06-08-2024 End: 06-08-2024 Departed Referred Nikia Cabezas Start: 06-08-2024 Registered Referred Nikia Cabezas Start: 06-08-2024 End: 06-08-2024 Nikia Cabezas Start: 06-08-2024 End: 06-08-2024 ambulatory Nikia Henderson OLS Facility:[facility] Start: 06-01-2024 End: 06-01-[address] Michael Snowden MD Work Phone: [facility] Work Phone: Start: 06-01-2024 End: 06-01-2024 Departed Referred Nikia Cabezas Start: 06-01-2024 End: 06-01-2024 Nikia Henderson MD -[facility] [place] Start: 06-01-2024 End: 06-01-2024 ambulatory [facility] Facility:[facility] Start: 05-25-2024 End: 05-25-2024 ambulatory [facility] Facility:[facility] Start: 05-25-2024 End: 05-25-[address] Nikia Henderson MD -[facility] Work Phone: Start: 05-25-2024 End: 05-25-2024 Dr. Nikia Henderson MD -[facility] Work Phone: Start: 05-21-2024 End: 05-21-2024 [facility] Start: 05-21-2024 End: 05-21-2024 Patient encounter [facility] [employer] [facility] Work Phone[facility] Start: 05-21-2024 End: 05-21-2024 [facility] Work Phone: Start: 04-16-2024 End: 05-21-2024 Dr. Michael Snowden MD -Transitional Care Unit Start: 04-16-2024 End: 05-21-2024 Evaluation and management of inpatient Dr. Michael Snowden MD -[facility] Start: 04-16-2024 Non-patient / Non-visit Dr. Minerva Hernandez MD -[facility] Work Phone: Start: 04-16-2024 Dr. Gabo Hernandez MD -[facility] Work Phone: Start: 04-15-2024 Non-patient / Non-visit Dr. Minerva Hernandez MD -[facility] Work Phone: Start: 04-15-2024 Dr. Gabo Hernandez MD -[facility] Work Phone: Start: 04-14-2024 ambulatory Gabo Hernandez Facility:[facility] Start: 04-14-2024 End: 04-16-2024 Evaluation and management of inpatient Dr. Gabo Hernandez MD -[facility] Work Phone: Start: 04-14-2024 End: 04-16-2024 Dr. Gabo Hernandez MD -[facility] Work Phone: Start: 04-14-2024 Non-patient / Non-visit Dr. Minerva Hernandez MD -[facility] Work Phone: Start: 04-14-2024 Dr. Gabo Hernandez MD [facility] Work Phone: Start: 04-14-2024 End: 04-14-2024 ambulatory Indu Pacheco Facility:[facility] Start: 04-14-2024 End: 04-14-2024 Non-patient / Non-visit Dr. Indu Pacheco MD [facility] Work Phone: Start: 04-14-2024 End: 04-14-2024 Dr. Indu Pahceco MD [facility] Work Phone: Start: 04-13-2024 Non-patient / Non-visit Dr. Minerva Hernandez MD [facility] Work Phone: Start: 04-13-2024 Dr. Gabo Hernandez MD [facility] Work Phone: Start: 04-12-2024 Non-patient / Non-visit Dr. Gaby Watkins MD [facility] Work Phone: Start: 04-12-2024 Dr. Lesli mccoy MD [facility] Work Phone: Start: 04-11-2024 ambulatory Gabo Mary Facility:[facility] Start: 04-11-2024 Non-patient / Non-visit Dr. Gaby Watkins MD [facility] Work Phone: Start: 04-11-2024 Dr. Lesli mccoy MD -[facility] Work Phone: Start: 03-30-2024 End: 03-31-2024 Dr. Floridalma Bingham DO -Emergency Department Work Phone: Start: 03-30-2024 End: 03-31-2024 Emergency department patient visit Dr. Floridalma Bingham DO -Emergency Department Work Phone: Start: 03-25-2024 End: 03-25-2024 ambulatory Michael Chi Sp Facility:[facility] Start: 03-25-2024 End: 03-25-[address] Michael Snowden MD -Physical Therapy Work Phone: Start: 03-25-2024 End: 03-25-2024 Dr. Michael Snowden MD -Physical Therapy Work Phone: Start: 02-25-2024 End: 02-25-2024 Emergency department patient visit Michael Chi Sp Facility:[facility] Start: 02-23-2024 End: 02-23-2024 ambulatory Michael Chi Sp Facility:[facility] Start: 01-08-2024 End: 01-08-2024 ambulatory Michael Chi Sp Facility:[facility] Start: 12-15-2023 End: 12-15-2023 ambulatory Michael Chi Sp Facility:[facility] Start: 11-13-2023 End: 11-13-2023 ambulatory Michael Chi Sp Facility:[facility] Start: 11-10-2023 End: 11-10-2023 ambulatory Michael Chi Sp Facility:[facility] Start: 10-29-2023 ambulatory Michael Chi Sp Facility:[facility] Start: 10-29-2023 End: 10-29-2023 ambulatory Michael Chi Sp Facility:[facility] Start: 06-20-[address] Michael guillen Work Phone: [facility]-Physical Therapy Work Phone: Start: 06-19-2023 Non-patient / Non-visit Dr. Augusto Snowden Work Phone: [facility] Start: 06-19-2023 End: 06-19-[address] Michael Snowden Work Phone: [facility] Work Phone: Start: 06-19-2023 End: 06-19-[address] Michael Snowden Work Phone: [facility]-Cardiovascular Services Work Phone: Start: 05-30-[address] Michael guillen Work Phone: [facility]-Physical Therapy Work Phone: Start: 05-28-2023 End: 05-28-[address] Michael Snowden Work Phone: [facility] Work Phone: Start: 05-28-2023 End: 05-28-[address] Michael Snowden Work Phone: [facility]-Laboratory, Phy Office 3rd Arr Start: 05-09-2023 End: 05-09-[address] Michael Snowden Work Phone: [facility] Work Phone: Start: 05-09-2023 End: 05-09-[address] Michael Snowden Work Phone: [facility] Work Phone: Start: 04-28-2023 End: 04-28-[address] Michael Snowden Work Phone: [facility] Work Phone: Start: 04-28-2023 End: 04-28-[address] Michael Snowden Work Phone: [facility]-Physical Therapy Work Phone: Start: 02-24-2023 End: 02-24-[address] Michael Snowden Work Phone: [facility] Work Phone: Start: 01-06-2023 End: 01-06-[address] Michael Snowden Work Phone: [facility] Work Phone: Start: 11-28-[address] [facility] Start: 11-27-2022 End: 11-27-[address] Michael Snowden Work Phone: [facility] Work Phone: Start: 11-27-2022 End: 11-27-[address] [facility] Snowden [facility] Start: 11-05-2022 End: 11-05-[address] Michael Snowden Work Phone: [facility] Work Phone: Start: 11-05-2022 End: 11-05-[address] Michael Snowden [facility] Work [facility]: Start: 09-25-2022 End: 09-25-[address] Michael Snowden Work Phone: [facility] Work Phone: Start: 08-08-[address] Michael guillen Work Phone: [facility]-Physical Therapy Start: 08-05-2022 End: 08-05-[address] Michael Snowden Work Phone: [facility] Work Phone: Start: 08-05-2022 End: 08-05-[address] Michael Snowden [facility] Start: 07-16-[address] Michael guillen Work Phone: [facility]-Physical Therapy Start: 07-16-2022 End: 07-16-[address] Michael Snowden Work Phone: [facility] Work Phone: Start: 07-16-2022 End: 07-16-[address] Michael Snowden Work Phone: [facility] Start: 06-10-[address] Michael guillen Work Phone: [facility]-Physical Therapy Start: 06-07-2022 End: 06-07-[address] Michael Snowden Work Phone: [facility] Work Phone: Start: 06-07-2022 End: 06-07-[address] Michael Snowden Work Phone: [facility] Start: 03-26-2022 End: 03-26-[address] Michael Snowden Work Phone: [facility] Work Phone: Start: 03-26-2022 End: 03-26-[address] Michael Snowden Work Phone: [facility] Office 3rd [facility] Start: 02-15-[address] Michael guillen Work Phone: [facility]-Physical Therapy Start: 01-07-[address] Michael guillen Work Phone: [facility] Start: 01-04-2022 End: 01-04-[address] Michael Snowden Work Phone: [facility] Start: 12-24-2021 End: 12-24-[address] Michael Snowden Work Phone: [facility] Work Phone: Start: 12-24-2021 End: 12-24-[address] Michael Snowden Work Phone: [facility]-Physical Therapy Start: 09-25-2021 End: 09-25-2021 Patient encounter procedure [facility]Labor[facility], Phy Office 3rd Arr Start: 09-24-2021 Registered Recurring [facility] Start: 03-19-2006 End: 03-19-2006 Patient encounter procedure Noreen Fast DO Work Phone: [facility] Start: 02-26-2006 End: 02-27-2006 Patient encounter procedure Noreen Fast DO Work Phone: [facility] Start: 02-26-2006 End: 02-26-2006 Historical Summary Noreen Fast DO Work Phone: [facility] Procedures Date Procedure Procedure Detail Performing Clinician Start: 08-31-2024 Blood count smear mc rscp w/mnl difrntl [...] Nucleated red blood cell count procedure Dr. Micheal Snowden MD Work Phone: Start: 08-03-2024 Platelet [...] Work Phone: Start: 05-21-2024 Anion gap measurement D tano Snowden MD Work Phone: Start: 05-21-2024 Blood count smear mc rscp w/mnl difrntl wbc count Dr. 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 Ashley Ernst PA-C Work Phone: Start: 06-11-2016 End: 06-11-2016 Follow Up Appt 6 months Ashley waterman PA-C Work Phone: Start: 06-11-2016 End: 06-11-2016 Follow Up BP Check Ashley Ernst PA-C Work Phone: Start: 06-13-2015 End: 06-06-2016 Follow Up Appt 1 year Bret Daniels MD Start: 06-13-2015 End: 06-06-2016 MMM Bret Daniels MD Start: 03-08-2015 End: 03-08-2015 ZULEYKA [...] (3 - Td or Tdap) [facility] Start: 07-22-2027 Diabetes Screening Diabetes Screenin g [facility] Start: 07-21-2025 BP Controlled (<130/80) BP Con trolled (<130/80) [facility] Start: 11-29-2024 Influenza vaccination Influenz a Vaccine (Season Ended) [facility] Start: 10-20-2024 End: 10-20-2024 Patient encounter procedure 10/20/2024 12:40 PM EDT Office Visit Endocrinology [address] [place] [address] Kimmie Lindsey MD [address] [place] [address] 3 month follow up Endocrinology Comment on above: 3 month follow up Start: 05-21-[address] [facility] Start: 05-20-2024 Development of care plan [facility] Start: 05-17-2024 Consultation for pain [facility] Start: 05-13-2024 Developing a treatme nt plan [facility] Start: 05-13-2024 Development of care plan [facility] Start: 05-07-2024 [facility] Start: 04-17-2024 Developing a treatme nt plan [facility] Start: 04-17-2024 Development of care plan [facility] Start: 04-16-2024 Admission procedure [facility] Start: 04-16-2024 Introduction of urin mee catheter [facility] Start: 04-16-2024 Measuring intake and output [facility] Start: 04-16-2024 Patient referral to dietitian [facility] Start: 04-16-2024 Referral to occupati onal therapist [facility] Start: 04-16-2024 Referral to service [facility] Start: 04-16-2024 Vital signs measurements [facility] Start: 04-16-2024 [facility] Start: 04-16-2024 Following clinical pathway protocol [facility] Start: 04-16-[address] [facility] Start: 04-16-2024 [facility] Start: 04-14-2024 Admission procedure [facility] Start: 04-11-2024 Application of intermittent pneumatic compression device [facility] Start: 04-11-2024 Following clinical pathway protocol [facility] Start: 04-11-2024 Assessment of risk o f venous thromboembolism [facility] Start: 04-11-2024 Consultation for pain [facility] Start: 04-11-2024 Inhalation therapy procedure [facility] Start: 04-11-2024 Insertion of cathete r into peripheral vein [facility] Start: 04-11-2024 Providing care accor ding to standard [facility] Start: 04-11-2024 Provision of activit y privileges [facility] Start: 04-11-2024 Referral to occupati onal therapist [facility] Start: 04-11-2024 Referral to service [facility] Start: 04-11-2024 [facility] Start: 04-11-2024 Admission procedure [facility] Start: 03-31-2024 Advance Directive Discussion Advance Directive Discussion [facility] Start: 03-31-2024 [facility] Start: 11-30-2023 Covid-19 Vaccine ( season) Covid-19 Vaccine ( season) [facility] Start: 11-30-2023 Influenza vaccination Influenza Vacc ine (#1) [facility] Start: 08-05-2022 Protein measurement [facility] Start: 2020 RSV Vaccine (1 - 1-d ose 75+ series) RSV Vaccine (1 - 1-dose 75+ series) [facility] Start: 06-16-2017 End: 06-16-2017 Appointment Appointment [facility] Work Phone: Start: 12-17-2016 End: 12-17-2016 *BMP *BMP [employer] [facility] Work Phone: Start: 12-17-2016 End: 12-17-2016 Follow Up Appt 6 months Follow Up Appt 6 months [facility] Work Phone: Start: 12-17-2016 End: 12-17-2016 JHR ROBERTR [facility] Work Phone: Start: 12-17-2016 End: 12-17-2016 Remote 30 day ecg rev/report 30 Day Holter Monitor [facility] Work Phone: Start: 06-11-2016 End: 06-11-2016 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 [facility] Work Phone: Start: 06-11-2016 End: 06-11-2016 Follow Up Appt 6 months Follow Up Appt 6 months [facility] Work Phone: Start: 06-11-2016 End: 06-11-2016 Follow Up BP Check Follow Up BP Check [facility] Work Phone: Start: 06-13-2015 End: 06-06-2016 Follow Up Appt 1 year Follow Up Appt 1 year [facility] Work Phone: Start: 06-13-2015 End: 06-06-2016 MMM MMM [facility] Work Phone: Start: 03-08-2015 End: 03-08-2015 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 [facility] Work Phone: Start: 03-08-2015 End: 03-08-2015 Follow Up Appt 3 months Follow Up Appt 3 months [facility] Work Phone: Start: 08-05-2014 End: 08-05-2014 Follow Up Appt 6 months Follow Up Appt 6 months [facility] Work Phone: Start: 08-05-2014 End: 08-05-2014 MMM MMM [facility] Work Phone: Start: 02-10-2014 End: 02-10-2014 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 [facility] Work Phone: Start: 02-10-2014 End: 02-10-2014 Follow Up Appt 6 months Follow Up Appt 6 months [facility] Work Phone: Start: 08-13-2013 End: 08-13-2013 Follow Up Appt 6 months Follow Up Appt 6 months [facility] Work Phone: Start: 08-13-2013 End: 08-13-2013 MMM MMM [facility] Work Phone: Start: 02-08-2013 End: 02-08-2013 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 [facility] Work Phone: Start: 02-08-2013 End: 02-08-2013 Follow Up Appt 6 months Follow Up Appt 6 months [facility] Work Phone: Start: 08-13-2012 End: 02-01-2013 Follow Up Appt 6 months Follow Up Appt 6 months [facility] Work Phone: Start: 08-13-2012 End: 02-01-2013 MMM MMM [facility] Work Phone: Start: 02-04-2012 End: 02-04-2012 Follow Up Appt 6 months Follow Up Appt 6 months [facility] Work Phone: Start: 04-25-2011 Shingrix Vaccine (2 of 3) Shingrix Vaccine (2 of 3) [facility] Start: 03-19-2006 Provider Instruction s for Treatment FOLLOW UP IN 4 MONTHS [facility]; [facility] Work Phone: Start: 10-27-1963 Annual PCP Team Program Manufacturing Leader apurva Disease Visit Annual PCP Team Chronic Disease Visit [facility] Start: 10-27-1963 Anxiety Screening Anxiety Screening [facility] Start: 10-27-1963 BP Controlled (<130/80) BP Con trolled (<130/80) [facility] Start: 10-27-1963 Depression Screening Depression Scre ening [facility] Start: 10-27-1963 zzBP Controlled (<130/80) (Retired) zzBP Controlled (<130/80) (Retired) [facility] CT Abdomen and Pelvi s W contrast IV [facility] Lactoferrin [Presenc e] in Stool by Immunoassay [facility] Patient Education [facility] Work Phone: Patient referral [facility] Work Phone: Protein measurement [facility] Immunizations Immunization Date Immunization Notes Care Provider Fa cility 02-25-2024 tetanus toxoid, redu lalo diphtheria toxoid, and acellular pertussis vaccine, adsorbed Dr. Michael Snowden MD Work Phone: [facility] 05-13-2017 influenza virus vacc ine, unspecified formulation Jovanni Matthew MD Work Phone: [facility] 03-17-2015 pneum[facility] 12-24-2014 influenza, high dose seasonal, preservative-free Jovanni Matthew MD Work Phone: [facility] 01-11-2013 influenza virus vacc ine, unspecified formulation Jovanni Matthew MD Work Phone: [facility] 02-28-2011 zoster vaccine, live Jovanni crump MD Work Phone: [facility] Work Phone: 02-19-2011 influenza virus vacc ine, unspecified formulation Jovanni Matthew MD Work Phone: [facility] 02-19-2011 pneumococcal polysaccharide [facility], [facility] 09-21-2007 tetanus toxoid, redu lalo diphtheria toxoid, and acellular pertussis vaccine, adsorbed Jovanni Matthew MD Work Phone: [facility] Payers Date Payer Category Payer Self-pay [id number] 2018 Medicare (Managed Care) [place] PA[place] [id number] 2014 Medicare [id number] Unknown [facility] Unknown [id number] .[id number]. 2.462 Unknown [id number] 2.840.1.477716.3.579. 2.462 Unknown [id number] .840.1.839441.3.579. 2.462 Unknown [id number] .840.1.490337.3.579. 2.462 Unknown [id number] .840.1.540399.3.579. 2.462 Unknown [id number] .840.1.459092.3.579. 2.462 Unknown [id number] .840.1.639044.3.579. 2.462 Unknown [id number] .840.1.633651.3.579. 2.462 Unknown [id number] .840.1.138658.3.579. 2.462 Unknown [id number] .840.1.945857.3.579. 2.462 Unknown [id number] .840.1.058581.3.579. 2.462 Unknown [id number] .840.1.546010.3.579. 2.462 Unknown [id number] .840.1.073374.3.579. 2.462 Unknown [id number] .840.1.024922.3.579. 2.462 Unknown [id number] .840.1.225640.3.579. 2.462 Unknown [id number] 2.840.1.481783.3.579. 2.462 Unknown [id number] 2.840.1.848171.3.579. 2.462 Unknown [id number] 2.16.840.1.774337.3.579. 2.462 Unknown [id number] 2.16.840.1.081177.3.579. 2.462 Unknown [id number] 2.16.840.1.110430.3.579. 2.462 Unknown [id number] 2.16.840.1.610961.3.579. 2.462 Unknown [id number] 2.16.840.1.148773.3.579. 2.462 Unknown [id number] 2.16.840.1.032047.3.579. 2.462 Unknown [id number] 2.16.840.1.622317.3.579. 2.462 Unknown [id number] 2.16.840.1.622290.3.579. 2.462 Unknown [id number] 2.16840.1.619349.3.579. 2.462 Unknown [id number] [id number]. 2.462 Unknown [id number] 2.16.840.1.147310.3.579. 2.462 Unknown [id number] 2.16.840.1.131353.3.579. 2.462 Unknown [id number] 2.16.840.1.284714.3.579. 2.462 Unknown [id number] 2.16840.1.483371.3.579. 2.462 Unknown [id number] 2.16.840.1.660671.3.579. 2.462 Unknown [id number] 2.16.840.1.784506.3.579. 2.462 Unknown [id number] 2.16.840.1.800294.3.579. 2.462 Unknown [id number] 2.16.840.1.386911.3.579. 2.462 Unknown [id number] 2.16.840.1.645016.3.579. 2.462 Unknown [id number] 2.16.840.1.230945.3.579. 2.462 Unknown [id number] 2.16.840.1.990331.3.579. 2.462 Unknown [id number] 2.16.840.1.970432.3.579. 2.462 Unknown [id number] 2.16.840.1.560514.3.579. 2.462 Unknown [id number] 2.16.840.1.493710.3.579. 2.462 Unknown [id number] 2.16.840.1.545942.3.579. 2.462 Social History Date Type Detail Facility Start: 04-10-2021 End: 05-09-2023 Tobacco smoking status MIIS Unknown if ever smoked [facility] Start: 09-21-2020 None [facility] Start: 09-21-2020 Homeless [facility] Start: 09-21-2020 Non-smoker [facility] Start: 1945 Sex Assigned At Female [facility] Start: 07-21-2024 End: 08-13-2024 Alcohol Use Alcohol Use [facility]; [facility] Work Phone: Comment on above: Occasional alcohol u se tea once iin awhile Start: 04-16-2024 End: 07-21-2024 Tobacco smoking status NHIS Never smoked tobacco (finding) [facility] Start: 07-01-2024 End: 07-15-2024 Sex Female (finding) [facility] Start: 07-21-2024 Tobacco use and exposure Smokeless tobacco non-user [facility] Start: 07-21-2024 End: 08-13-2024 Alcoholic beverage intake Current drinker of alcohol (finding) [facility] Start: 07-21-2024 End: 08-13-2024 Tobacco use panel [facility] National Score (1-100), lower number is lower risk 75 [facility] Start: 07-21-2024 Tobacco Comment Mother smoked in childhood home. ETS exposure in a restaurant. [facility] Start: 02-19-2012 Alcohol Comment [facility] Start: 1945 Sex assigned at Not on file [facility] NEGATED: Highlighted row Not [facility] Goals Date Patient Goal Desired Activity /State Functional Status Date Assessment Result Facility 05-21-2024 Functional status Ambulates [facility] Work Phone: 04-16-2024 Functional status Ambulates [facility] Work Phone: 11-03-2014 Are you deaf, or do you have serious difficulty hearing No 11/03/2014 11:42 AM Dalila Nielsen RN No [facility] 11-03-2014 Are you blind, or do you have serious difficulty seeing, even when wearing glasses No 11/03/2014 11:42 AM Dalila Nielsen RN No [facility] 11-03-2014 Do you have serious difficulty walking or climbing stairs Yes 11/03/2014 11:42 AM Dalila Nielsen RN Yes [facility] 11-03-2014 Do you have difficul ty dressing or bathing No 11/03/2014 11:42 AM Dalila Nielsen RN No [facility] 11-03-2014 Because of a physica l, mental, or emotional condition, do you have difficulty doing errands alone such as visiting a physician's office or shopping Yes 11/03/2014 11:42 AM Dalila Nielsen RN Yes [facility] Mental Status Date Assessment Result Facility 05-21-2024 Cognitive function Voice/Name [facility] Work Phone: 05-17-2024 Cognitive function Appropriate;C ooperativ e [facility] Work Phone: 04-16-2024 Cognitive function Voice/Name [facility] Work Phone: 11-03-2014 Because of a physica l, mental, or emotional condition, do you have serious difficulty concentrating, remembering, or making decisions Yes 11/03/2014 11:42 AM Dalila Nielsen RN Yes [facility] Clinical Notes 06-14-2022 to 08-22-2024 Telephone Encounter - Mary Borden - 08/22/2024 9:59 AM EDTTelephone Encounter - Suha Mary - 08/22/2024 9:59 AM Seth Alfonso MD [...] your request via staff message to the [employer] ([id number]). You can find templates listed below to support your appeal in [employer] ([employer] drop down, select patient care, select send letter). If it is an urgent request, you can email the [place] Prior auth Team at [email or web address]. Please make sure the documents below are completed in order to process your request. If the appeal is denied, do you want to schedule a peer to peer Yes/No. We will schedule peer to peer automatically if yes. Thank You, [facility] Auth Appeals Team Jorje GRIFFIN Appeal letter Jorje GRIFFIN Letter of Medical Necessity Jorje GRIFFIN [facility] Prior [employer] Endocrinology & Metabolism [place] Letter scanned into chart [facility] 08-22-2024 Miscellaneous Notes Images from the original [...] your request via staff message to the [employer] ([id number]). You can find templates listed below to support your appeal in [employer] ([employer] drop down, select patient care, select send letter). If it is an urgent request, you can email the [place] Prior [employer] Team at . Please make sure the documents below are completed in order to process your request. If the appeal is denied, do you want to schedule a peer to peer Yes/No. We will schedule peer to peer automatically if yes. Thank You, Jorje Chandra Auth Appeals Team Jorje GRIFFIN Appeal letter Jorje GRIFFIN Letter of Medical Necessity Jorje Hernandez Prior [employer] III Endocrinology & Metabolism [place] Letter scanned into chart documented in this encounter [facility] 08-13-2024 Note HNO ID: [id number] Author: SETH CHOWDARY MD Service: ? Author Type: Physician Type: Progress Notes Filed: 08/13/2024 08:45 Note Text: SPINE SURGERY OUTPATIENT CONSULT This is an in-person visit. SERVICE DATE: 08/13/2024 PCP: Michael Snowden MD REFERRING PROVIDER: Jovanni Matthew [id number] [facility] [address] Lizette Davies is a 78 year old [...] walked recently and currently resides in a penit[facility]iary facility. She does not report bowel or [...] (degenerative disc disease), cervical MRI scanned into [facility] January 11, 2014 ([facility]) DDD (degenerative disc disease), lumbosacral Essential hypertension, [...] 12/31/13 EGD ESOPHAGOGASTRODUODENOSCOPY TRANSORAL DIAGNOSTIC 02/16/15 EGD [facility] inpt ESOPHAGOGASTRODUODENOSCOPY TRANSORAL DIAGNOSTIC 05/11/15 EGD EXTRACTION, ERUPTED TOOTH OR EXPOSED ROOT (ELEVATION AND/OR FORCEPS REMOVAL) [place] teeth FOOT RIGHT OP SURGERY 01/2009 PAST SURGICAL HISTORY OF 1995 Bone fusion 1st MT and pin right foot PAST S (more content not included)... [facility] 08-13-2024 History of Presen t illness Narrative SPINE SURGERY OUTPATIENT CONSULT This is an in-person visit. SERVICE DATE: 08/13/2024 PCP: Michael Snowden MD REFERRING PROVIDER: Jovanni Matthew [phone] [facility] [address] Lizette Davies is a 78 year old [...] walked recently and currently resides in a penitentiary facility. She does not report bowel or [...] (degenerative disc disease), cervical MRI scanned into [facility] January 11, 2014 ([facility]) DDD (degenerative disc disease), lumbosacral Essential hypertension, [...] 12/31/13 EGD ESOPHAGOGASTRODUODENOSCOPY TRANSORAL DIAGNOSTIC 02/16/15 EGD [facility] inpt ESOPHAGOGASTRODUODENOSCOPY TRANSORAL DIAGNOSTIC 05/11/15 EGD EXTRACTION, ERUPTED TOOTH OR EXPOSED ROOT (ELEVATION AND/OR FORCEPS REMOVAL) [place] teeth FOOT RIGHT OP SURGERY 01/2009 PAST SURGICAL HISTORY OF 1996 Bone fusion 1st MT and pin right foot PAST SURGICAL HISTORY OF 01/2013 left carpal tunnel surgery PAST SURGICAL HISTORY OF right Lasik 2002 PAST SURGICAL HISTORY OF 09/13 Skin Ca [...] for nausea/vomiting. COMPOUNDED PRESCRIPTION 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 Dx: Bilat sprained ankles, gait [...] PAGER: documented in this encounter [facility] 07-21-2024 Note HNO ID: [id number] Author: MILLIE PETTY MD Service: ? Author [...] on 07/21/2024) COMPOUNDED PRESCRIPTION Home Health assessment director, itzel, PT. Dx: Bilat sprained ankles, gait [...] O+ Compression fracture of thoracic vertebra ([facility]) DDD (degenerative disc disease), cervical MRI scanned into [facility] January 11, 2014 ([facility]) DDD (degenerative disc disease), lumbosacral Essential hypertension, [...] PFRMD 11/24/2000 Co (more content not included)... [facility] 07-21-2024 Instructions Jovanni Matthew MD - 07/21/2024 1:43 PM EDT Bring records including bone density testing to appointments with metabolic bone and spine surgeon Pain medication per pain management documented in this encounter [facility] 07-21-2024 Note HNO ID: [id number] Author: MILLY SINGH RN Service: ? Author [...] were reviewed: CD, reports Milly Singh RN [facility] 07-21-2024 History of Presen t illness [...] fusion/decompression Chronic back pain but right before giving fell with worsening LBP. With eventual went [...] transitional care- ECF - PT stopped at [facility]. Can walk some with walker- about 30 ' SBA ? Leg weakness N/T- baseline- feet and hands Legs- in knees down B/B cruz - feels but has urine incontinence Bowel curz continent Pain 6-11/07 LS jxn upper buttock [...] MRI scanned into [facility] January 11, 2014 ([facility]) DDD (degenerative disc disease), lumbosacral Essential hypertension, [...] 12/31/13 EGD ESOPHAGOGASTRODUODENOSCOPY TRANSORAL DIAGNOSTIC 02/16/15 EGD [facility] inpt ESOPHAGOGASTRODUODENOSCOPY TRANSORAL DIAGNOSTIC 05/11/15 EGD EXTRACTION, ERUPTED TOOTH OR EXPOSED ROOT (ELEVATION AND/OR FORCEPS REMOVAL) 1969's [place] teeth FOOT RIGHT OP SURGERY 01/2009 PAST SURGICAL HISTORY OF 1996 Bone fusion 1st MT and pin right foot PAST SURGICAL HISTORY OF 01/2013 left carpal tunnel surgery PAST SURGICAL HISTORY OF right Lasik 2002 PAST SURGICAL HISTORY OF 09/13 Skin Ca [...] zypan supplement COMPOUNDED PRESCRIPTION 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 Dx: Bilat sprained ankles, gait [...] cervical and LS ddd, HTN, gastroparesis, h/o MD, h/o GIB, sarcoidosis, leg SCC, with h/o [...] which included preparing to see the patient, [id number] patient care, completing clinical documentation, obtaining and/or reviewing separately obtained history, performing a medically appropriate examination, counseling and educating the patient/family/caregiver, ordering medications, tests, or procedures, and communicating with other HCPs (not separately reported). documented in this encounter [facility] 07-21-2024 Note HNO ID: [id number] Author: JOVANNI MATTHEW MD Service: ? Author [...] transitional care- ECF - PT stopped at [facility]. Can walk some with walker- about 30 [...] (degenerative disc disease), cervical MRI scanned into [facility] January 11, 2014 ([facility]) DDD (degenerative disc disease), lumbosacral Essential hypertension, [...] PAST SURGICAL HISTORY Procedure Laterality Date ARTHRP SOLOMONE CONDYLEANDPLATU MEDIALANDLAT COMPARTMENTS 11/05/2004 Knee replacement, total left ARTHRP KNE CONDYLEANDPLATU MEDIALANDLAT COMPARTMENTS 07/2010 right knee COLONOSCOPY FLX DX W/COLLJ SPEC WHEN PFRMD 11/24/2000 Colonoscopy COLONOSCOPY FLX DX W/COLLJ SPEC WHEN PFRMD 10/06/2014 Colonoscopy ESOPHAGOGASTRODUODENOSCOPY TRANSORAL DIAGNOSTIC 12/31/13 EGD ESOPHAGOGASTRODUODENOSCOPY TRANSORAL DIAGNOSTIC 02/16/15 EGD [facility] inpt ESOPHAGOGASTRODUODENOSCOPY TRANSORAL DIAGNOSTIC 05/11/15 EGD EXTRACTION, ERUPTED TOOTH OR EXPOSED ROOT (ELEVATION AND/OR FORCEPS REMOVAL) 1969' [place] teeth FOOT RIGHT OP SURGERY 01/2009 PAST SURGICAL HISTORY OF 1996 Bone fusion 1st MT and pin right foot PAST SURGICAL HISTORY OF 01/2013 left carpal tunnel surgery PAST SURGICAL HISTORY OF right Lasik 2001 PAST SURGICAL HISTORY OF 09/13 Skin (more content not included)... [facility] 05-19-2024 Note [facility] 05-18-2024 Note [facility] 04-16-2024 Evaluation note Diagnosis Onset Date [...] 2024 3:42pm Vitamin D deficiency acute Ralph mee 2024 3:42pm Sarcoidosis chronic April 16, 2024 3:42pm Intractable low back pain resolved April 16 3:42pm [facility] Work Phone: 1(422) 772-151801-17-2025 [facility]17[facility]2025 [facility] Evaluation note* Diagnosis Onset Date Resolution Status Admit Date Age-related osteoporosis wit h current pathol fracture of vertebra acute April 14 3:42pm Compression fracture of L1 vertebra acute April 14 3:42pm Radiculopathy of lumbar region acute April 14, 2024 3:42pm Unable to ambulate acute Gema y 2024 3:42pm Chronic back pain chronic [...] back pain resolved April 16, 2024 3:42pm [facility] Work Phone: 1(130) 310-733401-15-2025 [facility]20[facility] Discharge summary Author Geo Phillip [facility] May 02, 2023 3:54pm Note Date/Time May 02, 2023 3 :54pm [facility] Physical Therapy [facility] [address] [place] [address]. [address] [place] [address] / REHABILITATION SERVICES DISCHARGE SUMMARY MR#: [id number] Acct: [id number] Name: LIZETTE DAVIES Rep #: [id number] : 1945 77 From: Geo Phillip PT, [...] please feel free to call me at [phone]. Thank you for the referral of thispatient. Sincerely, Geo Phillip, PT, ATC Balance/Gait/Functional tests Balance/Special Test Scores Lower Extremity Functional Score: 19 Improvement % Improvement: 60 <Electronically signed by Geo Phillip PT, ATC> 05/02/23 1554 CC: Dr. Michael Snowden MD ~ [facility] Signed [facility] Work Phone: 1(346) 946-597903-17-2023 Discharge summary Author Geo Phillip [facility] June 14, 2022 3:55pm Note Date/Time June 14, 2022 3:4 9pm [facility] [address] [place] [address]. [address] [place] [address] / REHABILITATION SERVICES DISCHARGE SUMMARY MR#: [id number] Acct: [id number] Name: LIZETTE DAVIES Rep #: [id number] : 1945 76 From: Geo Phillip PT, [...] please feel free to call me at [phone]. Thank you for the referral of thispatient. Sincerely, Geo Phillip, PT, ATC Balance/Gait/Functional tests - Balance/Special Test Scores Lower Extremity Functional Score: 12 <Electronically signed by Geo Phillip PT, ATC> 06/14/22 1549 CC: Dr. Michael Snowden MD ~ [facility] Signed [facility] Work Phone: Evaluation noteNo assessment information available [facility] Work Phone: Evaluation note* Diagnosis Onset Date Resolution Status Essential (primary) hypertension chronic Nonrheumatic aortic (valve) stenosis chronic Supraventricular tachycardia chronic [facility] Work Phone: Evaluation note* Diagnosis Onset Date Resolution Status Abdominal pain acute Diarrhea chronic [facility] Work Phone: Evaluation note* Diagnosis Onset Date Resolution Status Cellulitis acute Gastroparesis acute Diarrhea chronic [facility] Work Phone: Evaluation note* Diagnosis Onset Date Resolution Status Essential (primary) hypertension chronic Nonrheumatic aortic (valve) stenosis chronic Supraventricular tachycardia chronic Cellulitis acute Gastroparesis acute Diarrhea chronic [facility] Work Phone: Evaluation note* Diagnosis Onset Date Resolution Status Cellulitis acute Gastroparesis acute Diarrhea chronic Essential (primary) hypertension chronic Nonrheumatic aortic (valve) stenosis chronic Supraventricular tachycardia chronic [facility] Work Phone: Evaluation note* Diagnosis Osteopenia, unspecified location- Primary History of vertebral compression fracture Spondylolisthesis, grade 3 Acquired spondylolisthesis [facility] Acquired spondylolisthesis- Primary Cervical spondylosis without myelopathy Neural foraminal stenosis of lumbar spine Spinal stenosis, lumbar region, without neurogenic claudication Closed compression fracture of body of L1 vertebra (HCC) [facility] Diagnosis Age-related osteoporosis with current pathological fracture, initial encounter- Primary documented in this encounter [facility] Chief Complaint and Reason for Visit Chief [...] 3 M FU Pain in left knee [id number] Reason for Visit Cellulitis Gastroparesis Diarrhea Essential (primary) hypertension Nonrheumatic aortic (valve) stenosis Supraventricular tachycardia Chief Complaint BALANCE RX HERE 3 M FU Pain in left knee MURMUR, SVT [id number] Reason for Visit Essential (primary) hypertension Nonrheumatic [...] 10:56am ADMISSION EXAM May 25, 2024 1:55pm [facility] WORK June 01, 2024 4: 00am [facility] WORK June 08, 2024 4 :00am Reason for Visit Admit Date Age-related osteoporosis wit h current pathol fracture of vertebra April 14, 2024 3:42pm Compression fracture of L1 vertebra Ralph healy2024 3:42pm Radiculopathy of lumbar region March [id number] [...] 10:56am ADMISSION EXAM May 25, 2024 1:55pm [facility] WORK June 01, 2024 4: 00am [facility] WORK June 08, 2024 4 :00am [facility]ENT[facility] LAB WORK June 15, 2024 5 :00am [...] 11:43am LUMBAR COMPRESSION FRACTURE W/PAIN Janua ry 152024 3:42pm LUMBAR COMPRESSION FRACTURE W/PAIN Janua ry 2024 10:46am LUMBAR COMPRESSION FRACTURE W/PAIN Janua ry 2024 9:51am LUMBAR COMPRESSION FRACTURE W PAIN Meleua ry 2024 3:42pm ADMISSION EXAM May 21, 2024 10:56am ADMISSION EXAM May 25, 2024 1:55pm [facility] WORK June 01, 2024 4: 00am [facility] WORK June 08, 2024 4 :00am [facility] LAB WORK June 15, 2024 5 :00am DETENTION LAB WORK June 22, 2024 5 :00am [...] 10:56am ADMISSION EXAM May 25, 2024 1:55pm [facility] WORK June 01, 2024 4: 00am [facility]ENTION LAB WORK June 08, 2024 4 :00am [facility]ENTION LAB WORK June 15, 2024 5 :00am [facility] LAB WORK June 22, 2024 5 :00am NEW CONCERN June 23, 2024 4:5 8pm [facility] WORK June 29, 2024 5: 00am DETENTION LAB WORK July 06, 2024 5: 00am DETENTION LAB WORK July 13, 2024 5 :00am Chief Complaint Admit Date LUMBAR COMPRESSION FRACTURE W PAIN Meleua ry 2024 3:42pm ADMISSION EXAM May 21, 2024 10:56am ADMISSION EXAM May 25, 2024 1:55pm [facility] LAB WORK June 01, 2024 4: 00am DETENTION LAB WORK June 08, 2024 4 :00am DETENTION LAB WORK June 15, 2024 5 :00am DETENTION LAB WORK June 22, 2024 5 :00am NEW CONCERN June 23, 2024 4:5 8pm DETENTION LAB WORK June 29, 2024 5: 00am DETENTION LAB WORK July 06, 2024 5: 00am DETENTION LAB WORK July 13, 2024 5 :00am DETENTION LAB WORK July 20, 2024 4 :00am DETENTION LAB WORK July 27, 2024 5 :00am [...] 10:56am ADMISSION EXAM May 25, 2024 1:55pm DETENTION LAB WORK June 01, 2024 4: 00am DETENTION LAB WORK June 08, 2024 4 :00am DETENTION LAB WORK June 15, 2024 5 :00am DETENTION LAB WORK June 22, 2024 5 :00am NEW CONCERN June 23, 2024 4:5 8pm DETENTION LAB WORK June 29, 2024 5: 00am DETENTION LAB WORK July 06, 2024 5: 00am DETENTION LAB WORK July 13, 2024 5 :00am DETENTION LAB WORK July 20, 2024 4 :00am DETENTION LAB WORK July 27, 2024 5 :00am LABWORK August 10, 2024 5:00a m Chief Complaint Admit Date LUMBAR COMPRESSION FRACTURE W PAIN Yani ry 2024 3:42pm ADMISSION EXAM May 21, 2024 10:56am ADMISSION EXAM May 25, 2024 1:55pm DETENTION LAB WORK June 01, 2024 4: 00am DETENTION LAB WORK June 08, 2024 4 :00am DETENTION LAB WORK June 15, 2024 5 :00am DETENTION LAB WORK June 22, 2024 5 :00am NEW CONCERN June 23, 2024 4:5 8pm DETENTION LAB WORK June 29, 2024 5: 00am DETENTION LAB WORK July 06, 2024 5: 00am DETENTION LAB WORK July 13, 2024 5 :00am DETENTION LAB WORK July 20, 2024 4 :00am DETENTION LAB WORK July 27, 2024 5 :00am DETENTION LAB WORK August 03, 2024 5:00 am LABWORK August 10, 2024 5:00a m DETENTION LAB WORK August 17, 2024 5:0 0am [...] Will Yes April 10 5:15pm Power of Instruction Dean Yes April 10, 2021 5:15pm Advance Directive Response Recorded Date/ Time Advance Directives Yes January 1:49am Living Will Yes April 10 4:15pm Power of Instruction Dean Yes April 10, 2021 4:15pm Advance Directive Response Recorded Date/ Time Living Will No March 30 9:41pm Do you have a Healthcare Power of Instruction Dean? No March 30, 2024 9:41pm Living Will Yes April 10 5:15pm Do you have a Healthcare Power of Instruction Dean? Yes April 10, 2021 5:15pm Living Will No April 11 3:41pm Do you have a Healthcare Power of Instruction Dean? No April 11, 2024 3:41pm Living Will No April 19 5:36pm Do you have a Healthcare Power of Instruction Dean? No April 19, 2024 5:36pm Advance Directives Yes January 2:49am Advance Directive Response Recorded Date/ Time Living Will No April 11 3:41pm Do you have a Healthcare Power of Instruction Dean? No April 11, 2024 3:41pm Living Will No April 19 5:36pm Do you have a Healthcare Power of Instruction Dean? No April 19, 2024 5:36pm Advance Directives Yes January 2:49am Advance Directive Response Recorded Date/ Time Living Will No April 19 5:36pm Do you have a Healthcare Power of Instruction Dean? No April 19, 2024 5:36pm Advance Directives [...] Primary Care Provider, Referring Provider Active Ashley GRIFFIN PA Attending Provider Active Team Status: Inactive Member Role Status Dates Dr. Michael Snowden MD Primary Care Provider Active Dr. Gaetano Cleary DO Attending Provider, Referring Provider Active Team Status: Active Member Role Status Dates Dr. Micheal Snowden MD Primary Care Provider Active Dr. [...] May 21, 2024 End: May 21, 2024 DIEUDONNE Lomas NPC Attending Provider Active Start: May 21, 2024 [...] Attending Provider Active Start: July 13, 2024 Wagon Person Relationship Specialty Start Date End Date Michael Snowden Chi PCP - General Gerontology 09/05/17 Team Status: Inactive Member Role Status Dates Dr. Michael Snowden MD Primary Care Provider Active Start: June 23, 2024 End: June 23, 2024 Audra Drake NP, NP-C Attending Provider Active Start: June 23, 2024 [...] Attending Provider Active Start: August 03, 2024 Wagon Person Relationship Specialty Start Date End Date Sp Michael Bates PCP - General Gerontology 09/05/17 Wagon Person Relationship Specialty Start Date End Date Michael Snowden Paulo PCP - General Gerontology 09/05/17 Wagon Person Relationship Specialty Start Date End Date Sp Michael Bates PCP - General Gerontology 09/05/17 Team Status: [...] any alcohol or drug abuse patient.[facility] the event this information is protected by the Federal Confidentiality of Alcohol and Drug Abuse Patient Records regulations: The Federal rules restrict any use of the information to criminally investigate or prosecute any alcohol or drug abuse patient.[facility] the event this information is protected by the Federal Confidentiality of Alcohol and Drug Abuse Patient Records regulations: The Federal rules restrict any use of the information to criminally investigate or prosecute any alcohol or drug abuse patient.[facility] the event this information is protected by the Federal Confidentiality of Alcohol and Drug Abuse Patient Records regulations: The Federal rules restrict any use of the information to criminally investigate or prosecute any alcohol or drug abuse patient.[facility] the event this information is protected by the Federal Confidentiality of Alcohol and Drug Abuse Patient Records regulations: The Federal rules restrict any use of the information to criminally investigate or prosecute any alcohol or drug abuse patient.[facility] the event this information is protected by the Federal Confidentiality of Alcohol and Drug Abuse Patient Records regulations: The Federal rules restrict any use of the information to criminally investigate or prosecute any alcohol or drug abuse patient.[facility] Reason for Visit (unrecogniz ed section and content) Reason Comments New Patient Reason Comments Established Patient Reason Comments Medication Preauthorization Evenity 210m g- Denied INFORMATION SOURCE (unrecogn ized section and content) DATE CREATED AUTHOR 09/09/2024 [facility] DATE CREATED AUTHOR AUTHOR'S ORGANIZ ATION 10/09/2024 [facility] FOR RECORDS PERTAINING TO PATIENTS WHO [...] BE BASED ON THE PRIMARY CLINICAL RECORDS. [facility]. provides no warranty or guarantee of the accuracy or completeness of information in this document.
[2024-10-14 08:37] LABS: Hematocrit 34.6 % (37-47); Hemoglobin 11.3 g/dL (12.0-15.0); Immature Granulocytes Count 0.020 X10^3/uL (0.0-0.0); Mean Corp Hgb Conc 32.7 g/dL (32-36); Mean Corpuscular Volume 98.6 fL (81-99); Mean Platelet Vol. 10.0 fl (6.2-12.0); NRBC Flagged by Analyzer 0 % (0-5); Platelet Count 223 K/mm3 (150-450); RBC Distribution Width CV 12.8 % (11.6-14.6); RBC Distribution Width SD 45.7 fl (35.1-43.9); Red Blood Count 3.51 M/mm3 (4.2-5.4); White Blood Count 5.4 K/mm3 (4.4-11.0)
[2024-10-14 08:54] LABS: AST(SGOT) 16 U/L (<=31); Alanine Aminotransfer ALT/SGPT 11 U/L (<=34); Albumin, Serum 3.4 g/dL (3.4-4.8); Alkaline Phosphatase 79 U/L (35-104); Anion Gap 10 (5-15); BUN 15 mg/dL (4-19); BUN/Creat Ratio 20.9 RATIO (10-20); Calcium,Total 9.0 mg/dL (7.6-11.0); Carbon Dioxide 25.5 mmol/L (21.0-32.0); Chloride 106 mmol/L (98-108); Globulin 2.6 g/dL (2.2-4.2); Glucose 85 mg/dL (70-99); Potassium 4.2 mmol/L (3.3-5.1); Pro- Brain NATRIURETIC PEPTIDE 371 pg/mL (<=1800)
== END ==
LOC: OLS.WHLTCC 05:00
PROVIDERS: PCP Family Medicine Geriatric Medicine; Visit Provider Internal Medicine
DX: I10 Essential (primary) hypertension (principal); M54.16 Radiculopathy, lumbar region
CPT/HCPCS: 36415; 80053; 83880; 85025

== ENCOUNTER → 2024-11-02 05:00 | Outpatient (REF) | payer MEDICARE, SELFPAY ==
--- OUTSIDE RECORDS SUMMARY | 2024-11-02 04:36 | XMS RPT_ITS | CCD ---
Author Organization [facility] CliniSynv Care Team Providers Care Drilling Assistant Name Role Phone Riddhi Espinosa Unavailable Divina DELGADILLO, Lyric Williamson Unavailable Unavailable Riddhi Espinosa Unavailable Sp, Dr. Michael Bates Primary Care Provider Sp, Dr. Michael Bates Referring Provider Dr. Bret Daniels Attending Provider Sp, Dr. Michael Bates Primary Care Provider Sp, Dr. Michael Bates Referring Provider Dr. Bret Daniels Attending Provider [phone] Sp, Dr. Michael Bates Primary Care Provider Sp, Dr. Michael Bates Referring Provider Friend, Dr. Quevedo Attending Provider [phone] Fast DO, Noreen A Unavailable Dana Weldon Unavailable Unavailable Grinding Wheel Operator, System Unavailable Unavailable Sp, Dr. Michael Bates Primary Care Provider Sp, Dr. Michael Bates Referring Provider FriendDr. Quevedo Attending Provider [phone] Sp, Dr. Michael Bates Primary Care Provider Sp, Dr. Michael Bates Referring Provider Sujata GRIFFIN, GABY Galvan Attending Provider Friend, Dr. Quevedo Attending Provider [phone] Sp, Dr. Michael Bates Primary Care Provider Sp, Dr. Michael Bates Referring Provider GABY Vilchis Attending Provider Dr. Michael Snowden Chi Primary Care Provider Sp, Dr. Michael Bates Referring Provider GABY Vilchis Attending Provider Dr. Bret Daniels Attending Provider [...] Provider Rei OROZCO, Dr. Ayon Other Provider Audra Drake Attending Provider Beatriz OROZCO, Dr. Montejo Attending Provider Nikia Henderson MD Attending Provider Nikia Goldstein MD Referring Provider Corona BROCAudra Attending Provider Sp OROZCO, Dr. Michael Bates [...] Rei OROZCO, Dr. Ayon Other Provider Noelle CHIPPER MACHINE OPERATOR-C, Audra Attending Provider Beatriz OROZCO, Dr. Montejo Attending Provider Beatriz OROZCO, Nikia Attending Provider UnavailNikia Richard MD Referring Provider Unavailteri Drake CHIPPER MACHINE OPERATOR-CAudra Attending Provider Michael Snowden Chi Primary Care Provider [phone] Sp OROZCO, Dr. Michael Bates Primary Care Provider Sp OROZCO, Dr. Michael Bates Attending Provider Sp OROZCO, Dr. Michael Bates Referring Provider Sp OROZCO, Dr. Michael Bates Primary Care Provider [phone] SETH CHOWDARY Attending Unavailable JOVANNI MATTHEW Referring Unavailable SP, MICHAEL CHI Primary Care Unavailable MILLIE PETTY Referring Unavailable SP, MICHAEL CHI Primary Care Unavailable AJAY GRANT Attending Unavailable JOVANNI MATTHEW Referring Unavailable SP, MICHAEL CHI Primary Care Unavailable JELANDONICKJOVANNI Williamson Attending Unavailable SELF Referring Unavailable SP, MICHAEL CHI Primary Care Unavailable Sp, Michael Chi Primary Care Unavailable Oleghe OLS Efewongbe Attending Unavailabl e Sp, Michael Chi Primary Care Unavailable Audra García Attending Unavailable Sp, Michael Chi Primary Care Unavailable Audra García Attending Unavailable Sp, Michael Chi Primary Care Unavailable Floridalma Bingham Attending Unavailable Sp, Michael Chi Primary Care Unavailable Iraidaton Audra JAVIER Attending Unavailable Sp, Michael Chi Primary Care Unavailable Lesli Watkins Admitting Unavailable Aissatou Lieberman Consulting Unavailable Gabo Hernandez Attending Unavailable Lesli Watkins Consulting Unavailable Gabo Minaya Consulting Unavailable Sp, Michael Chi Attending Unavailable Sp, Michael Chi Referring Unavailable Sp, Michael Chi Admitting Unavailable Sp, Michael Chi Primary Care Unavailable Sp, Michael Chi Primary Care Unavailable Oleghe OLS, Efewongbe Attending Unavailabl e Sp, Michael Chi Referring Unavailable Sp, Michael [...] Efewongbe Attending Unavailabl e Oleghe OLS, Efewongbe Referring Unavailabl e Sp, Michael Chi Primary Care Unavailable Oleghe OLS, Efewongbe Attending Unavailabl e Oleghe OLS, Efewongbe Referring Unavailabl e Sp, Michael Chi Primary Care Unavailable Audra García Attending Unavailable Sp, Michael Chi Primary Care Unavailable Oleghe OLS, Efewongbe Attending Unavailabl e Sp, Michael Chi Primary Care Unavailable Oleghe CONCEPCION, Efewongbe Attending Unavailabl Audra Kennedy NP Attending Unavailable Sp, Michael Chi Primary Care Unavailable Sp, Michael Chi Primary Care Unavailable Oleghe OLS, Efewongbe Referring Unavailabl e Oleghe OLS, Efewongbe Attending Unavailabl e Sp, Michael Chi Primary Care Unavailable Bret Daniels Attending Unavailable Sp, Michael Chi Primary Care Unavailable NagajothiManuelapradee Attending Unavailabl e Nagajothi, Nagapradee Referring Unavailabl e Sp, Michael Chi Referring Unavailable Sp, Michael Chi Primary Care Unavailable Adam TIDWELL, Mari Attending Unavailable Sae Brandt Attending Unavailable Sp, Michael Chi Referring Unavailable Sp, Michael Chi Primary Care Unavailable Sp, Michael Chi Primary Care Unavailable Watkins, Lesli Admitting Unavailable Basali, Ayman Consulting Unavailable KotsoniMartha williss F Attending Unavailable Watkins, Lesli Consulting Unavailable Kotsonis Gabo F Consulting Unavailable Sp, Michael Chi Primary Care Unavailable Watkins, Lesli Admitting Unavailable Basali, Ayman Consulting Unavailable KotsRodrigo rothmanolas F Attending Unavailable Watkins, Lesli Consulting Unavailable Kotsonis Gabo F Consulting Unavailable WatkinsChrisge Attending Unavailable Sp, Michael Chi Referring Unavailable Sp, Michael Chi Primary Care Unavailable Sujata GRIFFIN, Ashley Galvan Attending Unavail able Sekou Brooks Attending Unavailable Sp, Michael Chi Referring Unavailable Sp, Michael Chi Primary Care Unavailable Sp, Michael Chi Primary Care Unavailable Oleghe Efewongbe Attending Unavailable Audra Drake NP Attending Unavailable Sp, Michael Chi Primary Care Unavailable Sp, Michael Chi Referring Unavailable Sp, Michael Chi Primary Care Unavailable Tami Caldwell Attending Unavailable Sp, Michael Chi Primary Care Unavailable Oleghe OLS, Efewongbe Attending Unavailabl e Sp, Michael Chi Primary Care Unavailable Oleghe OLS, Efewongbe Attending Unavailabl e Sp, Michael Chi Primary Care Unavailable Audra García Attending Unavailable Sp, Michael Chi Primary Care Unavailable uAdra García Attending Unavailable Sp, Michael Chi Primary Care Unavailable Oleghe OLS, Efewongbe Attending Unavailabl e Allergies Allergy Classification Reported Allergen(s) Allergy Type Date of Onset Reaction(s) Facility (3 sources) alendronate drug allergy 015 GI upset [facility] Work Phone: (3 sources) amLODIPine drug allergy 016 "freezes up limbs" [facility] Work Phone: (3 sources) atorvastatin drug allergy 016 muscle weakness [facility] Work Phone: (20 sources) codeine; Translations: [CODEINE] drug allergy 009 Intolerance [facility] Work Phone: (20 sources) ibuprofen; Translations: [IBUPROFEN] drug allergy 005 [facility]et [facility] Work Phone: (20 sources) lisinopril; Translations: [LISINOPRIL] drug allergy 012 Swelling, Anaphylaxis [facility] Work Phone: (3 sources) NIFEdipine drug allergy 016 "freezes up limbs" [facility] Work Phone: (3 sources) HCTZ drug allergy 015 low sodium [facility] Work Phone: (6 sources) NKDA drug allergy 013 [facility] Work Phone: (20 sources) Alendronate; Translations: [ALENDRONATE SODIUM] Drug Allergy 015 GI Upset, Other: See Comments [facility] (20 sources) amLODIPine Drug Allergy 022 Freezes up limbs [facility] (20 sources) atorvastatin; Translations: [ATORVASTATIN] Drug Allergy 016 Intolerance [facility] (20 sources) Doxazosin; Translations: [DOXAZOSIN] Drug Allergy Other: See Comments [facility] Comment on above: VASOVAGAL (20 sources) hydroCHLOROthiazide; Translations: [HYDROCHLOROTHIAZIDE] Drug Allergy Other: See Comments [facility] (20 sources) NIFEdipine; Translations: [NIFEDIPINE] Drug Allergy Other: See Comments [facility] (1 source) HCTA Propensity to adverse reactions 022 Low sodium [facility] Work Phone: (1 source) Ibuprofen Drug Allergy [facility] Work Phone: Comment on above: abd pain (1 source) Codeine/Codeine Derivatives; Translations: [Codeine/Codeine Derivatives] Allergy to substance (finding) [facility] Work Phone: Comment on above: Headache (1 source) Alendronate; Translations: [ALENDRONATE] Drug Allergy 015 [facility] (1 source) Alendronate Drug Allergy [facility] Repository (1 source) amLODIPine Drug Allergy [facility] Repository (1 source) atorvastatin Drug Allergy [facility] Repository (1 source) Doxazosin Drug Allergy [facility] Repository (1 source) hydroCHLOROthiazide Drug Allergy [facility] Repository (1 source) NIFEdipine Drug Allergy [facility] Repository Medications Current Medications Medication Drug Class(es) [...] One tablet by mouth twice daily CHOLECALCIFEROL [id number] Bret Daniels MD Start: 02-04-2012 take 2 tablets by mo [facility] once daily VITAMIN D 2000 UNIT TABS Two tablets by mouth daily CHOLECALCIFEROL [id number] Lyric Murcia RN take 1 tablet by [facility] once daily cholecalciferol (VITAMIN D) 1,000 unit tab tablet Take 1,000 Units by mouth once daily. [facility] Cholecalciferol, Vitamin D3, (VITAMIN D-3) [...] Start: 06-07-2015 COMPOUNDED PRE SCRIPTION Home Health deck hand, aide, PT. Dx: Bilat sprained ankles, gait instability. 1 Each 0 06/07/2015 Active docusate sodium 50 mg / ana osides, senior living 8.6 mg oral tablet (20 sources) Start: 04-16-2024 End: 05-19-2024 Start: 04-16-2024 End: 05-19-2024 Sennosides-Docusate Sodium ( Stimulant Laxative Plus) 8.6-50 mg Tablet Active 2 {tbl} PO TWICE A DAY as needed for Constipation 0 May 19, 2024 1:00am take 1 tablet by [facility] once daily senna-docusate (SENNA PLUS) 8.6-50 mg [...] th twice daily TOPROL XL 25 MG [id number] One tablet by mouth twice daily METOPROLOL SUCCINATE [id number] Bret Daniels MD Start: 02-08-2013 take 1 tablet by [facility] th twice daily TOPROL XL 25 MG [id number] One tablet by mouth twice daily METOPROLOL SUCCINATE [id number] Lyric Murcia RN Start: 02-08-2013 take 1 tablet by [facility] th once daily TOPROL XL 25 MG [id number] One tablet by mouth daily METOPROLOL SUCCINATE [id number] Ashley Ernst PA-C Start: 02-08-2013 take 1 tablet by [facility] th twice daily TOPROL XL 25 MG [id number] One tablet by mouth twice daily METOPROLOL SUCCINATE [id number] Bret Daniels MD Start: 02-08-2013 take 1 tablet by [facility] th once daily TOPROL XL 50 MG [id number] One half tablet by mouth daily METOPROLOL SUCCINATE [id number] Bret Daniels MD Start: 02-08-2013 take 1 tablet by [facility] th twice daily TOPROL XL 25 MG [id number] One tablet by mouth twice daily METOPROLOL SUCCINATE [id number] Lyric Murcia RN Start: 02-08-2013 take 1 tablet by [facility] th once daily TOPROL XL 25 MG [id number] One tablet by mouth daily METOPROLOL SUCCINATE [id number] Ashley Ernst PA-C Start: 02-04-2012 take 1 tablet by [facility] th once daily TOPROL XL 50 MG [id number] One tablet by mouth daily METOPROLOL SUCCINATE [id number] Bret Daniels MD Start: 02-04-2012 take 1 tablet by [facility] th once daily TOPROL XL 50 MG [id number] One tablet by mouth daily METOPROLOL SUCCINATE [id number] Bret Daniels MD MULTIVITAMIN TAB (6 sources) [...] 07-14-2018 Nystatin Discontinued 1 APPL IC TOPICAL 0600,2199August 27, 2017 12:00am July 14, 2018 2:55pm [...] Start: 04-11-2024 End: 05-19-2024 Start: 04-11-2024 End: 02-19-2025 take 1 tablet by mouth twice daily [...] TABS One tablet by mouth daily CYANOCOBALAMIN [id number] Bret Daniels MD take 1 tablet by [...] tablet by mouth daily B COMPLEX VITAMINS [id number] Bret Daniels MD Start: 05-22-2014 End: 07-14-2018 [...] tablet by mouth daily B COMPLEX VITAMINS [id number] Lyric Murcia RN Start: 02-04-2012 End: 03-08-2015 take 1 tablet by mouth once daily VITAMIN B COMPLEX TABS One tablet by mouth daily B COMPLEX VITAMINS [id number] Ashley Ernst PA-C VITAMIN B COMPLEX ORAL [...] {tbl} PO Q8H as needed for pain 12 31March 31, 2024 April 11, 2024 1:31pm Start: [...] 15, 2016 12:00am July 02, 2017 2:34pm Parmer (20 sources) Start: 05-25-2020 End: 02-23-2024 Start: 05-25-2020 End: 02-23-2024 Parmer 650 mg tablet Discon tinued mg PO May 25, 2020 1:00am February 23, 2024 1:42pm Start: 05-25-2020 Parmer Active MG PO May 25, 2020 12:00am Start: 05-25-2020 Parmer Active MG PO May 25, 2020 1:00am Start: 07-02-2017 End: 08-18-2017 Start: 07-02-2017 End: 08-18-2017 take 1 tablet by mouth once daily Parmer 650 mg tablet Discontinued 650 mg PO daily July 02, 2017 12:00am August 18, 2017 3:35pm Start: 07-02-2017 End: 08-18-2017 take 650 mg by mouth once daily [place] Discontinued 6 50 MG PO daily July 01, 2017 11:00pm August 18, 2017 2:35pm Start: 07-02-2017 End: 08-18-2017 take 650 mg by mouth once daily [place]mer Discontinued 6 50 MG PO daily July 02, 2017 12:00am August 18, 2017 3:35pm Start: 02-03-2013 End: 02-10-2014 ALFALFA 650 MG TABS as neede d ALFALFA [id number] Ashley Ernst PA-C amLODIPine 2.5 mg oral [...] One tablet by mouth daily AMLODIPINE BESYLATE [id number] Bret Daniels MD Start: 08-03-2014 End: 08-05-2014 take 1 tablet by mouth once daily NORVASC 2.5 MG TABS One tablet by mouth daily AMLODIPINE BESYLATE [id number] Lyric Murcia RN amoxicillin 500 mg oral [...] One tablet by mouth daily ASCORBIC ACID [id number] Lyric Murcia RN aspirin 81 mg chewable [...] mouth four times daily as needed ASPIRIN-CAFFEINE [id number] Lyric Murcia RN Start: 08-03-2014 take 2 tablets by mo uth four times daily as needed ANACIN 400-32 MG TABS Two tablets by mouth four times daily as needed ASPIRIN-CAFFEINE [id number] Lyric Murcia RN Start: 08-03-2014 take 2 [...] ANACIN 400-32 MG TABS as needed ASPIRIN-CAFFEINE [id number] Elenita Villalobos RN Start: 02-03-2013 End: 02-10-2014 ANACIN 400-32 MG TABS as nee ded ASPIRIN-CAFFEINE [id number] Ashley Ernst PA-C Start: 02-03-2013 End: 02-10-2014 ANACIN 400-32 MG TABS as nee ded ASPIRIN-CAFFEINE Ashley Ernst PA-C Start: 02-03-2013 ANACIN 400-32 MG TABS as needed ASPIRIN-CAFFEINE Elenita Villalobos RN atorvastatin 20 mg oral tablet (6 sources) HMG-CoA Reductase Inhibitor Start: 03-01-2015 End: 04-26-2015 take 1 tablet by mouth once daily ATORVASTATIN CALCIUM 20 MG TABS One tablet by mouth daily ATORVASTATIN CALCIUM [id number] Jessica Smith RN azaTHIOprine 100 mg injection (6 sources) Purine Antimetabolite Start: 03-01-2015 End: 03-08-2015 take 1 tablet by mouth once daily AZASAN 100 MG TABS One tablet by mouth daily AZATHIOPRINE [id number] Lyric Murcia RN biotin (6 sources) Start: 02-04-2012 End: 02-08-2013 take 1 tablet by mouth once daily BIOTIN FORTE TABS One tablet by mouth daily BIOTIN TABS [id number] Ashley Ernst PA-C Start: 02-04-2012 take 1 tablet by [facility] th once daily BIOTIN FORTE TABS One tablet by mouth daily BIOTIN TABS [id number] Bret Daniels MD CALCIUM-MAGNESIUM TABS (3 sources) Start: 02-04-2012 take 2 tablets by mouth once daily THERESE-MAG TABS Two tablets by mouth daily CALCIUM-MAGNESIUM TABS [id number] Bret Daniels MD CATALYN (3 sources) Start: [...] One half tablet by mouth daily CHLORTHALIDONE [id number] Aimee Davis RN Start: 05-22-2014 End: 05-23-2014 [...] TABS One tablet by mouth daily HYDROCHLOROTHIAZIDE [id number] Bret Daniels MD lactulose 667 mg/ml oral solution (20 sources) Osmotic Laxative Start: 2020 End: 2022 Start: 03-01-2015 LACTULOSE 10 G M/15ML SOLN 30 cc (20 gm) by mouth daily as needed LACTULOSE [id number] Bret Daniels MD Start: 11-14-2014 End: 07-15-2016 Start: 11-14-2014 End: 07-15-2016 Lactulose 20 GM/30 ML [facility] Di scontinued 20 g PO DAILY November 14, 2014 12:00am July 15, 2016 12:10am may increase to three tablespoons daily if needed, may reduce to one tablespoon daily if having diarrhea lisinopril 2.5 mg oral tablet (1 source) Angiotensin Converting Enzyme Inhibitor take 1 tablet by mouth twice daily LISINOPRIL, 2.5MG (Oral Tablet) 1 BID for 0 days Refills: 0 Ordered: 19-Mar-2006 Day Pacheco RN Active Magnesium (20 sources) Start: End: Magnesium [...] at bedtime 250mg tablets MAGNESIUM OXIDE CAPS [id number] Bret Daniels MD Start: 08-13-2013 MAGNESIUM OXID E CAPS 4 tablets at bedtime MAGNESIUM OXIDE CAPS [id number] Bret Daniels MD melatonin 3 mg oral [...] One tablet by mouth daily MULTIPLE VITAMIN [id number] Bret Daniels MD Nelcnejycxsm-Xh-Lsjl- Minerals (13 sources) Start: 02-16-2015 End: 07-02-2017 take 1 tablet by mouth once daily Oormlmgohzfe-Le-Iagy-Mine rals Discontinued 1 TABLET PO DAILY February 16, 2015 12:00am July 02, 2017 1:34pm Start: 02-16-2015 End: 07-02-2017 take 1 tablet by mouth once daily Cflbmteanvej-Ay-Eocp-Minerals Discontinu ed 1 TABLET PO DAILY February 16, 2015 1:00am July 02, 2017 2:34pm Dxzvhnnencka-Wg-Vmvb-Mineral s 1 EACH tablet (2 sources) Start: 02-16-2015 End: 07-02-2017 take 1 tablet by mouth once daily Lehcevumexim-Er-Hzwl-Minerals 1 EACH tablet Discontinued 1 {tbl} PO DAILY February 16, 2015 1:00am July 02, 2017 2:34pm naproxen 250 mg oral tablet (6 sources) Nonster oidal Anti-in flammat ory Drug Start: 08-03-2014 End: 08-05-2014 take 1 tablet by mouth three times daily as needed NAPROXEN 250 MG TABS One tablet by mouth three times daily as needed NAPROXEN [id number] Bret Daniels MD nitrofurantoin, macrocrystal s 25 [...] 04-16-2024 End: 05-31-2024 take 1 capsule by mo [facility] every four hours as needed oxyCODONE ir [...] One tablet by mouth daily PANTOPRAZOLE SODIUM [id number] Bret Daniels MD Start: 03-01-2015 take 1 tablet by [facility] twice daily PROTONIX 40 MG TBEC One tablet by mouth twice daily PANTOPRAZOLE SODIUM 57773445878 Lyric Murcia RN potassium chloride 10 meq ex tended release oral tablet (20 sources) Start: 05-04-2013 End: 11-14-2014 Start: 02-08-2013 End: 03-01-2015 take 1 tablet by mouth once daily KLOR-CON M20 20 MEQ CR-TABS One tablet by mouth daily POTASSIUM CHLORIDE IRMA CR [id number] Lyric Murcia RN Start: 02-08-2013 take 1 tablet by [facility] th once daily KLOR-CON M20 20 MEQ CR-TABS One tablet by mouth daily POTASSIUM CHLORIDE IRMA CR [id number] Ashley Ernst PA-C Start: 02-08-2013 take 1 tablet by [facility] th once daily KLOR-CON M20 20 MEQ CR-TABS One tablet by mouth daily POTASSIUM CHLORIDE IRMA CR [id number] Ashley Ernst PA-C Start: 02-08-2013 End: 03-01-2015 take 1 tablet by mouth once daily KLOR-CON M20 20 MEQ CR-TABS One tablet by mouth daily POTASSIUM CHLORIDE IRMA CR [id number] Lyric Murcia RN Start: 08-13-2012 take 1 tablet by lib[facility] th twice daily KLOR-CON M20 20 MEQ CR-TABS One tablet by mouth twice daily POTASSIUM CHLORIDE IRMA CR [id number] Lyric Murcia RN Start: 08-13-2012 take 1 tablet by [facility] th twice daily KLOR-CON M20 20 MEQ CR-TABS One tablet by mouth twice daily POTASSIUM CHLORIDE IRMA CR [id number] Lyric Murcia RN predniSONE 10 mg oral tablet (9 sources) Corticosteroid Start: 03-01-2015 End: 03-08-2015 take 1 tablet by mouth once daily PREDNISONE 10 MG TABS One tablet by mouth daily PREDNISONE [id number] Ashley Ernst PA-C sulfamethoxazole 800 mg / [...] 1:00am May 19, 2024 9:05pm vitamin a 12660 unt oral capsule (20 sources) Vitamin A [...] TABS Three tablets by mouth daily CHOLECALCIFEROL [id number] Bret Daniels MD Start: 02-04-2012 take 3 tablets by mo [facility] once daily VITAMIN D 1000 UNIT TABS Three tablets by mouth daily CHOLECALCIFEROL [id number] Bret Daniels MD Zypan (15 sources) Start: 10-13-2014 End: 02-19-2015 Kacie [...] and mobility] Onset: 6 10-12-2015 Episodic Other nutritional; endocrine; and metabolic disorders [...] Test Name Value Interpretation Reference Range Facility [facility] 09-07-2024 [facility] Telephone (ENDOMN) LIZETTE DAVIES ([id number]) 1945 F Date Time Provider Department 09/07/24 AJAY GRANT ENDOFABIAN During your visit today, we recorded the [...] mouth once daily. - COMPOUNDED PRESCRIPTION [employer] defense 17 drops daily and working up to 60 drops daily (in divided doses). Serving size 30 drops. Mineral water and ethanol 20-24%) - OTC NUTRITIONAL SUPPLEMENT zypan supplement - COMPOUNDED PRESCRIPTION Home Health deck hand, aide, PT. 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 Normal [facility] Absolute lymphocyte countOrd ered By: Audra Drake on 08-31-2024 Lymphocytes Auto (Unsp spec) [#/Vol] 1.73 10*3/uL 0.83-4.51 [facility] Anion gap in Serum or Plasma Ordered By: Audra Drake on 08-31-2024 Anion gap [Moles/Vol] 10 mmol/L 5-15 [facility] Automated lymphocyte count a s percentage of total leukocytesOrdered By: Audra Drake on 08-31-2024 Lymphocytes/100 WBC Auto (Unsp spec) 27.5 % 19-41 [facility] BUN/creatinine ratioOrdered By: Audra Drake on 08-31-2024 Urea nitrogen/Creatinine [Mass ratio] 20.3 mg/mg High 10-20 [facility] Basophil percentageOrdered B y: Audra Drake on 08-31-2024 Basophils/100 WBC (Bld) 0.6 % 0-1 [facility] Carbon dioxide, total [Moles /volume] in Central venous bloodOrdered By: Audra Drake on 08-31-2024 CO2 [Moles/Vol] 24.3 mmol/L 21.0-32.0 [facility] Chloride assayOrdered By: Dimitris Drake on 08-31-2024 Chloride [Moles/Vol] 106 mmol/L 98-108 [facility] Eosinophil percentageOrdered By: Audra Drake on 08-31-2024 Eosinophils/100 WBC (Bld) 2.4 % 0-5 [facility] Erythrocyte distribution wid th ratioOrdered By: Audra Drake on 08-31-2024 Erythrocyte distribution width (RBC) [Ratio] 13.3 % 11.6-14.6 [facility] Erythrocyte distribution wid th standard deviationOrdered By: Audra Drake on 08-31-2024 Erythrocyte distribution width (RBC) [Ratio] 50.0 fl High 35.1-43.9 [facility] Glomerular filtration rate ( GFR) estimation/1.73 sq m using serum, plasma, or whole bOrdered By: Audra Drake on 08-31-2024 GFR/1.73 sq M.predicted among non-blacks MDRD (S/P/Bld) [Vol rate/Area] 91 mL/min/{1.73_m2} >60 [facility] Hematocrit Auto (Bld) [Volum e fraction]Ordered By: Audra Drake on 08-31-2024 Hematocrit (Bld) [Volume fraction] 34.9 % Low 37-47 [facility] Hemoglobin measurementOrdere d By: Audra Drake on 08-31-2024 Hemoglobin (Bld) [Mass/Vol] 11.0 g/dL Low 12.0-15. 0 [facility] Immature granulocytes/100 WB C Auto (Bld)Ordered By: Audra Drake on 08-31-2024 Immature granulocytes/100 WBC (Bld) 0.500 % 0.0-0.9 [facility] MCV (mean corpuscular volume ) determinationOrdered By: Audra Drake on 08-31-2024 MCV (RBC) [Entitic vol] 101.7 fL High 81-99 [facility] Mean corpuscular hemoglobin (MCH) determinationOrdered By: Audra Drake on 08-31-2024 MCH (RBC) [Entitic mass] 32.1 pg High 27.0-32.0 [facility] Monocyte percentageOrdered B y: Audra Drake on 08-31-2024 Monocytes/100 WBC (Bld) 9.4 % 0-10 [facility] Neutrophil percentageOrdered By: Audra Drake on 08-31-2024 Neutrophils/100 WBC (Bld) 59.6 % 47-70 [facility] Platelet countOrdered By: Dimitris Drake on 08-31-2024 Platelets (Bld) [#/Vol] 208 10*3/uL 150-450 [facility] Potassium measurement (mass/ volume)Ordered By: Audra Drake on 08-31-2024 Potassium (Unsp spec) [Mass/Vol] 4.2 mmol/L 3.3-5.1 [facility] [facility] RBC Auto (Bld) [#/Vol]Ordere d By: Audra Drake on 08-31-2024 RBC (Bld) [#/Vol] 3.43 10*6/uL Low 4.2-5.4 [facility] Serum creatinine measurement (mass/volume)Ordered By: Audra Drake on 08-31-2024 Creatinine [Mass/Vol] 0.63 mg/dL Low 0.70-1.20 [facility] Serum glucose measurement (m ass/volume)Ordered By: Audra Draek on 08-31-2024 Glucose [Mass/Vol] 81 mg/dL 70-99 [facility] Serum or plasma calcium gianluca urement (mass/volume)Ordered By: Audra Drake on 08-31-2024 Calcium [Mass/Vol] 8.8 mg/dL 7.6-11.0 [facility] Serum or plasma urea nitroge n measurement (mass/volume)Ordered By: Audra Drake on 08-31-2024 Urea nitrogen [Mass/Vol] 13 mg/dL 4-19 [facility] Sodium levelOrdered By: Cony Drake on 08-31-2024 Sodium [Moles/Vol] 141 mmol/L 133-145 [facility] White blood cell (WBC) count Ordered By: Audra Drake on 08-31-2024 WBC (Bld) [#/Vol] 6.3 10*3/uL 4.4-11.0 [facility] Absolute lymphocyte countOrd ered By: Catalinafedeheladio Jainjanicevioletta on 08-24-2024 Lymphocytes Auto (Unsp spec) [#/Vol] 1.65 10*3/uL 0.83-4.51 [facility] Anion gap in Serum or Plasma Ordered By: Nikia Henderson on 08-24-2024 Anion gap [Moles/Vol] 9 mmol/L 5-15 [facility] Automated lymphocyte count a s percentage of total leukocytesOrdered By: Nikia Henderson on 08-24-2024 Lymphocytes/100 WBC Auto (Unsp spec) 25.9 % 19-41 [facility] BUN/creatinine ratioOrdered By: guanakolake toxawayheladio Henderson on 08-24-2024 Urea nitrogen/Creatinine [Mass ratio] 20.0 mg/mg 10-20 [facility] Basophil percentageOrdered B y: Nikia Henderson on 08-24-2024 Basophils/100 WBC (Bld) 0.6 % 0-1 [facility] Carbon dioxide, total [Moles /volume] in Central venous bloodOrdered By: Nikia Henderson on 08-24-2024 CO2 [Moles/Vol] 26.4 mmol/L 21.0-32.0 [facility] Chloride assayOrdered By: Cecilia Henderson on 08-24-2024 Chloride [Moles/Vol] 107 mmol/L 98-108 [facility] Eosinophil percentageOrdered By: Nikia Henderson on 08-24-2024 Eosinophils/100 WBC (Bld) 2.5 % 0-5 [facility] Erythrocyte distribution wid th ratioOrdered By: laura Henderson on 08-24-2024 Erythrocyte distribution width (RBC) [Ratio] 13.1 % 11.6-14.6 [facility] Erythrocyte distribution wid th standard deviationOrdered By: laura Henderson on 08-24-2024 Erythrocyte distribution width (RBC) [Ratio] 49.5 fl High 35.1-43.9 [facility] Glomerular filtration rate ( GFR) estimation/1.73 sq m using serum, plasma, or whole bOrdered By: Nikia Henderson on 08-24-2024 GFR/1.73 sq M.predicted among non-blacks MDRD (S/P/Bld) [Vol rate/Area] 80 mL/min/{1.73_m2} >60 [facility] Hematocrit Auto (Bld) [Volum e fraction]Ordered By: Nikia Henderson on 08-24-2024 Hematocrit (Bld) [Volume fraction] 36.3 % Low 37-47 [facility] Hemoglobin measurementOrdere d By: Nikia Henderson on 08-24-2024 Hemoglobin (Bld) [Mass/Vol] 11.7 g/dL Low 12.0-15. 0 [facility] Immature granulocytes/100 WB C Auto (Bld)Ordered By: Nikia Henderson on 08-24-2024 Immature granulocytes/100 WBC (Bld) 0.300 % 0.0-0.9 [facility] MCV (mean corpuscular volume ) determinationOrdered By: Nikia Henderson on 08-24-2024 MCV (RBC) [Entitic vol] 102.0 fL High 81-99 [facility] Mean corpuscular hemoglobin (MCH) determinationOrdered By: laura Henderson on 08-24-2024 MCH (RBC) [Entitic mass] 32.9 pg High 27.0-32.0 [facility] Monocyte percentageOrdered B y: Nikia Henderson on 08-24-2024 Monocytes/100 WBC (Bld) 10.0 % 0-10 [facility] Neutrophil percentageOrdered By: laura Henderson on 08-24-2024 Neutrophils/100 WBC (Bld) 60.7 % 47-70 [facility] Platelet countOrdered By: Cecilia Henderson on 08-24-2024 Platelets (Bld) [#/Vol] 227 10*3/uL 150-450 [facility] Potassium measurement (mass/ volume)Ordered By: laura Henderson on 08-24-2024 Potassium (Unsp spec) [Mass/Vol] 4.1 mmol/L 3.3-5.1 [facility] RBC Auto (Bld) [#/Vol]Ordere d By: Nikia Henderson on 08-24-2024 RBC (Bld) [#/Vol] 3.56 10*6/uL Low 4.2-5.4 [facility] Serum creatinine measurement (mass/volume)Ordered By: Nikia Cristobalromi on 08-24-2024 Creatinine [Mass/Vol] 0.76 mg/dL 0.70-1.20 [facility] Serum glucose measurement (m ass/volume)Ordered By: Nikia Cristobalromi on 08-24-2024 Glucose [Mass/Vol] 88 mg/dL 70-99 [facility] Serum or plasma calcium gianluca urement (mass/volume)Ordered By: Catalinalake toxawayheladio Cristobalromi on 08-24-2024 Calcium [Mass/Vol] 9.0 mg/dL 7.6-11.0 [facility] Serum or plasma urea nitroge n measurement (mass/volume)Ordered By: Nikia Henderson on 08-24-2024 Urea nitrogen [Mass/Vol] 15 mg/dL 4-19 [facility] Sodium levelOrdered By: [facility] terra Henderson on 08-24-2024 Sodium [Moles/Vol] 142 mmol/L 133-145 [facility] White blood cell (WBC) count Ordered By: Nikia Henderson on 08-24-2024 WBC (Bld) [#/Vol] 6.4 10*3/uL 4.4-11.0 [facility] LIZETTE DAVIES ([id number]) 1945 F Date Time Provider Department 08/22/24 [...] request via staff message to the [facility] Auth Appeals Pool ([id number]). You can find templates listed below to support your appeal in [facility] (Epic drop down, select patient care, select send letter). If it is an urgent request, you can email the [facility] [facility] auth Team at [email or web address]. Please make sure the documents below are completed in order to process your request. If the appeal is denied, do you want to schedule a peer to peer Yes/No. We will schedule peer to peer automatically if yes. Thank You, Jorje Prior Auth Appeals Team Jorje PA Appeal letter Jorje GRIFFIN Letter of Medical Necessity Jorje GRIFFIN [facility] [employer] III Endocrinology AND Metabolism [place] Letter scanned into chart Allergies As of [...] mouth once daily. - COMPOUNDED PRESCRIPTION [employer] defense 17 drops daily and working up to 60 drops daily (in divided doses). Serving size 30 drops. Mineral water and ethanol 20-24%) - OTC NUTRITIONAL SUPPLEMENT zypan supplement - COMPOUNDED PRESCRIPTION Home Health deck hand, aide, PT. Dx: Bilat sprained ankles, gait [...] NOS [K92.2] 03/08/2005 MYALGIA AND MYOSITIS NOS [VRX8613] 09/02/2005 CONGENITAL PES PLANUS [Q66.50] 06/29/2007 Tibialis Tendinitis [M76.829] 10/19/2007 Generalized Osteoarthrosis, Unspecified Site [M*04/05/2008 Contact Dermatitis and Other Eczema, due to Uns*04/05/2008 Morbid obesity with BMI of 40.0-44.9, adult (HC* 01/25/2016 Low back pain [M54.50] 12/14/2013 Numbness and tingling in hands [R20.0, R20.2] 12/14/2013 Spinal cord lesion (HCC) [G95.9] 12/14/2013 Neck pain [M54.2] (more content not included)... Normal [facility] Absolute lymphocyte countOrd ered By: Nikia Henderson on 08-17-2024 Lymphocytes Auto (Unsp spec) [#/Vol] 1.53 10*3/uL 0.83-4.51 [facility] Anion gap in Serum or Plasma Ordered By: Nikia Henderson on 08-17-2024 Anion gap [Moles/Vol] 10 mmol/L - [facility] Automated lymphocyte count a s percentage of total leukocytesOrdered By: Nikia Henderson on 08-17-2024 Lymphocytes/100 WBC Auto (Unsp spec) 26.2 % - [facility] BUN/creatinine ratioOrdered By: Nikia Henderson on 08-17-2024 Urea nitrogen/Creatinine [Mass ratio] 20.9 mg/mg High - [facility] Basophil percentageOrdered B y: Nikia Henderson on 08-17-2024 Basophils/100 WBC (Bld) 0.9 % 0-1 [facility] Carbon dioxide, total [Moles /volume] in Central venous bloodOrdered By: Nikia Henderson on 08-17-2024 CO2 [Moles/Vol] 26.8 mmol/L 21.0-32.0 [facility] Chloride assayOrdered By: Cecilia Henderson on 08-17-2024 Chloride [Moles/Vol] 106 mmol/L 98-108 [facility] Eosinophil percentageOrdered By: Nikia Henderson on 08-17-2024 Eosinophils/100 WBC (Bld) 2.1 % 0-5 [facility] Erythrocyte distribution wid th ratioOrdered By: Nikia Henderson on 08-17-2024 Erythrocyte distribution width (RBC) [Ratio] 13.4 % 11.6-14.6 [facility] Erythrocyte distribution wid th standard deviationOrdered By: Nikia Henderson on 08-17-2024 Erythrocyte distribution width (RBC) [Ratio] 50.2 fl High 35.1-43.9 [facility] Glomerular filtration rate ( GFR) estimation/1.73 sq m using serum, plasma, or whole bOrdered By: Nikia Henderson on 08-17-2024 GFR/1.73 sq M.predicted among non-blacks MDRD (S/P/Bld) [Vol rate/Area] 90 mL/min/{1.73_m2} >60 [facility] Hematocrit Auto (Bld) [Volum e fraction]Ordered By: Nikia Henderson on 08-17-2024 Hematocrit (Bld) [Volume fraction] 34.6 % Low 37-47 [facility] Hemoglobin measurementOrdere d By: Nikia Henderson on 08-17-2024 Hemoglobin (Bld) [Mass/Vol] 11.2 g/dL Low 12.0-15. 0 [facility] Immature granulocytes/100 WB C Auto (Bld)Ordered By: Nikia Henderson on 08-17-2024 Immature granulocytes/100 WBC (Bld) 0.500 % 0.0-0.9 [facility] MCV (mean corpuscular volume ) determinationOrdered By: Nikia Henderson on 08-17-2024 MCV (RBC) [Entitic vol] 102.7 fL High 81-99 [facility] Mean corpuscular hemoglobin (MCH) determinationOrdered By: Nikia Henderson on 08-17-2024 MCH (RBC) [Entitic mass] 33.2 pg High 27.0-32.0 [facility] Monocyte percentageOrdered B y: Nikia Henderson on 08-17-2024 Monocytes/100 WBC (Bld) 9.8 % 0-10 [facility] Neutrophil percentageOrdered By: Nikia Cristobalromi on 08-17-2024 Neutrophils/100 WBC (Bld) 60.5 % 47-70 [facility] Platelet countOrdered By: Cecilia sanchez Cristobalromi on 08-17-2024 Platelets (Bld) [#/Vol] 235 10*3/uL 150-450 [facility] Potassium measurement (mass/ volume)Ordered By: Nikia Cristobalromi on 08-17-2024 Potassium (Unsp spec) [Mass/Vol] 3.9 mmol/L 3.3-5.1 [facility] RBC Auto (Bld) [#/Vol]Ordere d By: Nikia Henderson on 08-17-2024 RBC (Bld) [#/Vol] 3.37 10*6/uL Low 4.2-5.4 [facility] Serum creatinine measurement (mass/volume)Ordered By: Ceciliaguanakoterra Cristobalromi on 08-17-2024 Creatinine [Mass/Vol] 0.66 mg/dL Low 0.70-1.20 [facility] Serum glucose measurement (m ass/volume)Ordered By: Ceciliaguanakoterra Cristobaljanicevioletta on 08-17-2024 Glucose [Mass/Vol] 84 mg/dL 70-99 [facility] Serum or plasma calcium gianluca urement (mass/volume)Ordered By: Ceciliaguanakofedeheladio Jainjanicevioletta on 08-17-2024 Calcium [Mass/Vol] 9.1 mg/dL 7.6-11.0 [facility] Serum or plasma urea nitroge n measurement (mass/volume)Ordered By: Cecilialaura Jainjanicevioletta on 08-17-2024 Urea nitrogen [Mass/Vol] 14 mg/dL 4-19 [facility] Sodium levelOrdered By: Ceciliaguanako terra Cristobaljanicevioletta on 08-17-2024 Sodium [Moles/Vol] 143 mmol/L 133-145 [facility] White blood cell (WBC) count Ordered By: Nikia Henderson on 08-17-2024 WBC (Bld) [#/Vol] 5.8 10*3/uL 4.4-11.0 [facility] CNOVon 08-13-2024 CNOV Office Visit (SPNSMN ) LIZETTE DAVIES ([id number]) 1945 F Date Time Provider Department 08/13/24 [...] Snowden MD REFERRING PROVIDER: Jovanni Matthew [address] [facility] [address] Lizette Davies is a 78 year old [...] walked recently and [facility] in a [facility] facility. She does not report bowel or [...] disease), cervical MRI scanned into [facility] January 11, 2014 ([facility]) DDD (degenerative disc disease), lumbosacral Essential [...] DIAGNOSTIC 02/16/15 (more content not included)... Normal [facility] Absolute lymphocyte countOrd ered By: Nikia Henderson on 08-10-2024 Lymphocytes Auto (Unsp spec) [#/Vol] 1.61 10*3/uL 0.83-4.51 [facility] Anion gap in Serum or Plasma Ordered By: Nikia Henderson on 08-10-2024 Anion gap [Moles/Vol] 10 mmol/L 5-15 [facility] Automated lymphocyte count a s percentage of total leukocytesOrdered By: Nikia Henderson on 08-10-2024 Lymphocytes/100 WBC Auto (Unsp spec) 28.1 % 19-41 [facility] BUN/creatinine ratioOrdered By: Nikia Henderson on 08-10-2024 Urea nitrogen/Creatinine [Mass ratio] 19.5 mg/mg 10-20 [facility] Basophil percentageOrdered B y: Nikia Henderson on 08-10-2024 Basophils/100 WBC (Bld) 0.9 % 0-1 [facility] Carbon dioxide, total [Moles /volume] in Central venous bloodOrdered By: Nikia Henderson on 08-10-2024 CO2 [Moles/Vol] 24.9 mmol/L 21.0-32.0 [facility] Chloride assayOrdered By: Cecilia Henderson on 08-10-2024 Chloride [Moles/Vol] 106 mmol/L 98-108 [facility] Eosinophil percentageOrdered By: Nkiia Henderson on 08-10-2024 Eosinophils/100 WBC (Bld) 3.0 % 0-5 [facility] Erythrocyte distribution wid th ratioOrdered By: Nikia Henderson on 08-10-2024 Erythrocyte distribution width (RBC) [Ratio] 13.6 % 11.6-14.6 [facility] Erythrocyte distribution wid th standard deviationOrdered By: Nikia Henderson on 08-10-2024 Erythrocyte distribution width (RBC) [Ratio] 51.5 fl High 35.1-43.9 [facility] Glomerular filtration rate ( GFR) estimation/1.73 sq m using serum, plasma, or whole bOrdered By: Nikia Henderson on 08-10-2024 GFR/1.73 sq M.predicted among non-blacks MDRD (S/P/Bld) [Vol rate/Area] 92 mL/min/{1.73_m2} >60 [facility] Hematocrit Auto (Bld) [Volum e fraction]Ordered By: Nikia Henderson on 08-10-2024 Hematocrit (Bld) [Volume fraction] 35.1 % Low 37-47 [facility] Hemoglobin measurementOrdere d By: Nikia Henderson on 08-10-2024 Hemoglobin (Bld) [Mass/Vol] 11.3 g/dL Low 12.0-15. 0 [facility] Immature granulocytes/100 WB C Auto (Bld)Ordered By: Nikia Henderson on 08-10-2024 Immature granulocytes/100 WBC (Bld) 0.200 % 0.0-0.9 [facility] MCV (mean corpuscular volume ) determinationOrdered By: Nikia Henderson on 08-10-2024 MCV (RBC) [Entitic vol] 103.2 fL High 81-99 [facility] Mean corpuscular hemoglobin (MCH) determinationOrdered By: Nikia Henderson on 08-10-2024 MCH (RBC) [Entitic mass] 33.2 pg High 27.0-32.0 [facility] Monocyte percentageOrdered B y: Nikia Cristobalromi on 08-10-2024 Monocytes/100 WBC (Bld) 9.3 % 0-10 [facility] Neutrophil percentageOrdered By: Ceciliaguanakoterra Cristobaljanicevioletta on 08-10-2024 Neutrophils/100 WBC (Bld) 58.5 % 47-70 [facility] Platelet countOrdered By: Cecilia laura Cristobaljanicevioletta on 08-10-2024 Platelets (Bld) [#/Vol] 233 10*3/uL 150-450 [facility] Potassium measurement (mass/ volume)Ordered By: Cecilialaura Jainjanicevioletta on 08-10-2024 Potassium (Unsp spec) [Mass/Vol] 4.0 mmol/L 3.3-5.1 [facility] RBC Auto (Bld) [#/Vol]Ordere d By: Nikia Cristobalromi on 08-10-2024 RBC (Bld) [#/Vol] 3.40 10*6/uL Low 4.2-5.4 [facility] Serum creatinine measurement (mass/volume)Ordered By: Nikia Henderson on 08-10-2024 Creatinine [Mass/Vol] 0.59 mg/dL Low 0.70-1.20 [facility] Serum glucose measurement (m ass/volume)Ordered By: Nikia Henderson on 08-10-2024 Glucose [Mass/Vol] 80 mg/dL 70-99 [facility] Serum or plasma calcium gianluca urement (mass/volume)Ordered By: Nikia Henderson on 08-10-2024 Calcium [Mass/Vol] 9.0 mg/dL 7.6-11.0 [facility] Serum or plasma urea nitroge n measurement (mass/volume)Ordered By: Nikia Henderson on 08-10-2024 Urea nitrogen [Mass/Vol] 11 mg/dL 4-19 [facility] Sodium levelOrdered By: Catalina terra Beatriz on 08-10-2024 Sodium [Moles/Vol] 141 mmol/L 133-145 [facility] White blood cell (WBC) count Ordered By: Nikia Henderson on 08-10-2024 WBC (Bld) [#/Vol] 5.7 10*3/uL 4.4-11.0 [facility] Absolute lymphocyte countOrd ered By: Audra Drake on 08-03-2024 Lymphocytes Auto (Unsp spec) [#/Vol] 1.37 10*3/uL 0.83-4.51 [facility] Anion gap in Serum or Plasma Ordered By: Audra Drake on 08-03-2024 Anion gap [Moles/Vol] 8 mmol/L 5-15 [facility] Automated lymphocyte count a s percentage of total leukocytesOrdered By: Audra Drake on 08-03-2024 Lymphocytes/100 WBC Auto (Unsp spec) 23.5 % 19-41 [facility] BUN/creatinine ratioOrdered By: Audra Drake on 08-03-2024 Urea nitrogen/Creatinine [Mass ratio] 18.8 mg/mg 10-20 [facility] Basophil percentageOrdered B y: Audra Drake on 08-03-2024 Basophils/100 WBC (Bld) 0.9 % 0-1 [facility] Bilirubin directOrdered By: Audra Drake on 08-03-2024 Bilirubin.direct [Mass/Vol] 0.10 mg/dL 0.00-0.3 0 [facility] Bilirubin, totalOrdered By: Audra Drake on 08-03-2024 Bilirubin [Mass/Vol] 0.17 mg/dL 0.00-1.30 [facility] Carbon dioxide, total [Moles /volume] in Central venous bloodOrdered By: Audra Drake on 08-03-2024 CO2 [Moles/Vol] 24.9 mmol/L 21.0-32.0 [facility] Chloride assayOrdered By: Dimitris Drake on 08-03-2024 Chloride [Moles/Vol] 107 mmol/L 98-108 [facility] Eosinophil percentageOrdered By: Audra Drake on 08-03-2024 Eosinophils/100 WBC (Bld) 2.6 % 0-5 [facility] Erythrocyte distribution wid th ratioOrdered By: Audra Drake on 08-03-2024 Erythrocyte distribution width (RBC) [Ratio] 13.9 % 11.6-14.6 [facility] Erythrocyte distribution wid th standard deviationOrdered By: Audra Drake on 08-03-2024 Erythrocyte distribution width (RBC) [Ratio] 52.4 fl High 35.1-43.9 [facility] Folate [Moles/volume] in Ser um or PlasmaOrdered By: Audra Drake on 08-03-2024 Folate [Moles/Vol] 36.80 ng/mL High 4.60-34.80 [facility] Glomerular filtration rate ( GFR) estimation/1.73 sq m using serum, plasma, or whole bOrdered By: Audra Drake on 08-03-2024 GFR/1.73 sq M.predicted among non-blacks MDRD (S/P/Bld) [Vol rate/Area] 87 mL/min/{1.73_m2} >60 [facility] Hematocrit Auto (Bld) [Volum e fraction]Ordered By: Audra Drake on 08-03-2024 Hematocrit (Bld) [Volume fraction] 33.6 % Low 37-47 [facility] Hemoglobin measurementOrdere d By: Audra Drake on 08-03-2024 Hemoglobin (Bld) [Mass/Vol] 11.0 g/dL Low 12.0-15. 0 [facility] Immature granulocytes/100 WB C Auto (Bld)Ordered By: Audra Drake on 08-03-2024 Immature granulocytes/100 WBC (Bld) 0.300 % 0.0-0.9 [facility] MCV (mean corpuscular volume ) determinationOrdered By: Audra Drake on 08-03-2024 MCV (RBC) [Entitic vol] 103.7 fL High 81-99 [facility] Magnesium measurement (mass/ volume)Ordered By: Audra Drake on 08-03-2024 Magnesium (Unsp spec) [Mass/Vol] 2.3 mg/dL High 1.5-2.2 [facility] Mean corpuscular hemoglobin (MCH) determinationOrdered By: Audra Drake on 08-03-2024 MCH (RBC) [Entitic mass] 34.0 pg High 27.0-32.0 [facility] Monocyte percentageOrdered B y: Audra Drkae on 08-03-2024 Monocytes/100 WBC (Bld) 10.3 % High 0-10 [facility] Neutrophil percentageOrdered By: Audra Drake on 08-03-2024 Neutrophils/100 WBC (Bld) 62.4 % 47-70 [facility] No Panel InformationOrdered By: Audra Drake on 08-03-2024 21 U/L <32 [facility] Platelet countOrdered By: Dimitris Drake on 08-03-2024 Platelets (Bld) [#/Vol] 243 10*3/uL 150-450 [facility] Potassium measurement (mass/ volume)Ordered By: Audra Drake on 08-03-2024 Potassium (Unsp spec) [Mass/Vol] 4.4 mmol/L 3.3-5.1 [facility] RBC Auto (Bld) [#/Vol]Ordere d By: Audra Drake on 08-03-2024 RBC (Bld) [#/Vol] 3.24 10*6/uL Low 4.2-5.4 [facility] Serum creatinine measurement (mass/volume)Ordered By: Audra Drake on 08-03-2024 Creatinine [Mass/Vol] 0.71 mg/dL 0.70-1.20 [facility] Serum globulin measurementOr dered By: Audra Drake on 08-03-2024 Globulin (S) [Mass/Vol] 3.0 g/dL 2.2-4.2 [facility] Serum glucose measurement (m ass/volume)Ordered By: Audra Drake on 08-03-2024 Glucose [Mass/Vol] 89 mg/dL 70-99 [facility] Serum or plasma alanine kim otransferase (ALT) measurementOrdered By: Audra Drake on 08-03-2024 ALT [Catalytic activity/Vol] 15 U/L <35 [facility] Serum or plasma albumin gianluca urement (mass/volume)Ordered By: Audra Drake on 08-03-2024 Albumin [Mass/Vol] 3.2 g/dL Low 3.4-4.8 [facility] Serum or plasma alkaline nikole sphatase measurementOrdered By: Audra Drake on 08-03-2024 ALP [Catalytic activity/Vol] 85 U/L 35-104 [facility] Serum or plasma calcium gianluca urement (mass/volume)Ordered By: Audra Drake on 08-03-2024 Calcium [Mass/Vol] 8.8 mg/dL 7.6-11.0 [facility] Serum or plasma urea nitroge n measurement (mass/volume)Ordered By: Audra Drake on 08-03-2024 Urea nitrogen [Mass/Vol] 13 mg/dL 4-19 [facility] Sodium levelOrdered By: Cony Drake on 08-03-2024 Sodium [Moles/Vol] 140 mmol/L 133-145 [facility] Total proteinOrdered By: Rubin Drake on 08-03-2024 Protein [Mass/Vol] 6.2 g/dL 5.9-8.4 [facility] Vitamin B12 ser/plasOrdered By: Audra Drake on 08-03-2024 Cobalamin (Vitamin B12) [Mass/Vol] 1509 pg/mL High 180-914 [facility] White blood cell (WBC) count Ordered By: Audra Drake on 08-03-2024 WBC (Bld) [#/Vol] 5.8 10*3/uL 4.4-11.0 [facility] Absolute lymphocyte countOrd ered By: Audra Drake on 07-27-2024 Lymphocytes Auto (Unsp spec) [#/Vol] 1.57 10*3/uL 0.83-4.51 [facility] Anion gap in Serum or Plasma Ordered By: Audra Drake on 07-27-2024 Anion gap [Moles/Vol] 9 mmol/L 5-15 [facility] Automated lymphocyte count a s percentage of total leukocytesOrdered By: Audra Drake on 07-27-2024 Lymphocytes/100 WBC Auto (Unsp spec) 26.8 % 19-41 [facility] BUN/creatinine ratioOrdered By: Audra Drake on 07-27-2024 Urea nitrogen/Creatinine [Mass ratio] 19.1 mg/mg 10-20 [facility] Basophil percentageOrdered B y: Audra Drake on 04-29-2025 Basophils/100 WBC (Bld) 0.7 % 0-1 [facility] Carbon dioxide, total [Moles /volume] in Central venous bloodOrdered By: Audra Drake on 07-27-2024 CO2 [Moles/Vol] 24.8 mmol/L 21.0-32.0 [facility] Chloride assayOrdered By: Dimitris Drake on 07-27-2024 Chloride [Moles/Vol] 106 mmol/L 98-108 [facility] Eosinophil percentageOrdered By: Audra Drake on 07-27-2024 Eosinophils/100 WBC (Bld) 2.4 % 0-5 [facility] Erythrocyte distribution wid th ratioOrdered By: Audra Drake on 07-27-2024 Erythrocyte distribution width (RBC) [Ratio] 14.1 % 11.6-14.6 [facility] Erythrocyte distribution wid th standard deviationOrdered By: Audra Drake on 07-27-2024 Erythrocyte distribution width (RBC) [Ratio] 53.5 fl High 35.1-43.9 [facility] Glomerular filtration rate ( GFR) estimation/1.73 sq m using serum, plasma, or whole bOrdered By: Audra Drake on 07-27-2024 GFR/1.73 sq M.predicted among non-blacks MDRD (S/P/Bld) [Vol rate/Area] 90 mL/min/{1.73_m2} >60 [facility] Hematocrit Auto (Bld) [Volum e fraction]Ordered By: Audra Drake 07-27-2024 Hematocrit (Bld) [Volume fraction] 33.1 % Low 37-47 [facility] Hemoglobin measurementOrdere d By: Audra Drake on 07-27-2024 Hemoglobin (Bld) [Mass/Vol] 11.0 g/dL Low 12.0-15. 0 [facility] Immature granulocytes/100 WB C Auto (Bld)Ordered By: Audra Drake on 07-27-2024 Immature granulocytes/100 WBC (Bld) 0.500 % 0.0-0.9 [facility] MCV (mean corpuscular volume ) determinationOrdered By: Audra Drake 07-27-2024 MCV (RBC) [Entitic vol] 103.4 fL High 81-99 [facility] Mean corpuscular hemoglobin (MCH) determinationOrdered By: Audra Drake on 07-27-2024 MCH (RBC) [Entitic mass] 34.4 pg High 27.0-32.0 [facility] Monocyte percentageOrdered B y: Audra Drake on 07-27-2024 Monocytes/100 WBC (Bld) 10.4 % High 0-10 [facility] Neutrophil percentageOrdered By: Audra Drake on 07-27-2024 Neutrophils/100 WBC (Bld) 59.2 % 47-70 [facility] Platelet countOrdered By: Dimitris Drake on 07-27-2024 Platelets (Bld) [#/Vol] 282 10*3/uL 150-450 [facility] Potassium measurement (mass/ volume)Ordered By: Audra Drake on 07-27-2024 Potassium (Unsp spec) [Mass/Vol] 4.3 mmol/L 3.3-5.1 [facility] RBC Auto (Bld) [#/Vol]Ordere d By: Audra Drake on 07-27-2024 RBC (Bld) [#/Vol] 3.20 10*6/uL Low 4.2-5.4 [facility] Serum creatinine measurement (mass/volume)Ordered By: Audra Drake on 07-27-2024 Creatinine [Mass/Vol] 0.65 mg/dL Low 0.70-1.20 [facility] Serum glucose measurement (m ass/volume)Ordered By: Audra Drake on 07-27-2024 Glucose [Mass/Vol] 90 mg/dL 70-99 [facility] Serum or plasma calcium gianluca urement (mass/volume)Ordered By: Audra Drake on 07-27-2024 Calcium [Mass/Vol] 8.9 mg/dL 7.6-11.0 [facility] Serum or plasma urea nitroge n measurement (mass/volume)Ordered By: Audra Drake on 07-27-2024 Urea nitrogen [Mass/Vol] 12 mg/dL 4-19 [facility] Sodium levelOrdered By: Cony Drake on 07-27-2024 Sodium [Moles/Vol] 140 mmol/L 133-145 [facility] White blood cell (WBC) count Ordered By: Audra Drake on 07-27-2024 WBC (Bld) [#/Vol] 5.9 10*3/uL 4.4-11.0 [facility] 07-22-2024 [facility] Telephone (ENDOMN) LIZETTE DAVIES ([id number]) 1945 F Date Time Provider Department 07/22/24 [...] mouth once daily. - COMPOUNDED PRESCRIPTION [facility] 17 drops daily and working up to 60 drops daily (in divided doses). Serving size 30 drops. Mineral water and ethanol 20-24%) - OTC NUTRITIONAL SUPPLEMENT zypan supplement - COMPOUNDED PRESCRIPTION Home Health deck hand, aide, PT. Dx: Bilat sprained ankles, gait [...] NOS [K92.2] 03/08/2005 MYALGIA AND MYOSITIS NOS [[id number]] 09/02/2005 CONGENITAL PES PLANUS [Q66.50] 06/29/2007 Tibialis [...] ML SUBCU (more content not included)... Normal [facility] 1,25-dihydroxyvitamin D3 [Ma ss/Vol]on 07-21-2024 VIT D1,25 DIHYDROXY 34.0 pg/mL Normal 19.9-79.3 [facility] Comment on above: Order Comment: Iwona pedro Type: BLOOD SPECIMEN Ordering Facility: [facility] Address: [address] [place] [address] Performed By: #### 2 731-8, 02680-7, 3016-3, 2777-1 #### [facility] CLIA [id number] [address] [place] [address] [place] 25(OH)D3 SerPl-mCncon 2024 25-hydroxyvitamin D3 [Mass/Vol] 65.9 ng/mL Normal 31.0-80.0 [facility] Comment on above: Order Comment: Iwona pedro Type: BLOOD SPECIMEN Ordering Facility: [facility] Address: [address] [place] [address] Result Comment: Clas sification of 25 [place] Vitamin D status: Deficiency/Insufficiency: < or = 30 ng/ml. Sufficiency/Optimal Levels: 31-80 ng/mL Toxicity: > 100 ng/mL. Test performed by chemiluminescent immunoassay. Performed By: #### 2 731-8, 20211-9, 3016-3, 2777-1 #### [facility] CLIA [id number] [address] [place] [address] [place] CNOVon 07-21-2024 CNOV Office Visit (ENDOMN ) LIZETTE DAVIES ([id number]) 1945 F Date Time Provider Department 07/21/24 3:00 PM AJAY GRANT ENDOMN During your visit today, we recorded the following information about you: Pulse Blood pressure Weight Height 98/minute 109/75 68 kg 1.473 m Bebo Martinez MA 07/21/2024 2:47 PM Signed Thank you for choosing the [facility] Department of Endocrinology, Diabetes and Metabolism. Did you know that you need to call 48 hours in advance of your scheduled visit, if you are unable to make your appointment? The [facility]inology [facility] Metabolism [place] thanks you for your commitment, because patients not showing to their appointment results in a lost opportunity for patients to receive world class health care at the [facility]. To Cancel an appointment, please choose one of the following: - Call the Appointment Call Center at [phone] - From [email or web address], Go to Appointments - Cancel Appts If cancelling, consider your need to reschedule to prevent further delays in your care. To Schedule an appointment, please choose one of the following: - Call the Appointment Call Center at [phone] - From [email or web address], Go to Appointments - Request an Appt [...] Reported on 07/21/2024) COMPOUNDED PRESCRIPTION Home Health deck hand, noemie, PT. Dx: Bilat sprained ankles, gait instability. acetaminophen (TYLENOL EXTRA STRENGTH) 500 mg tablet Take 1 tablet by mouth every 6 hours as needed for Pain. Magnesium 250 mg tab Take 1,000 mg by mouth. (Patient not taking: Reported on 07/21/2024) MULTIVITAMIN TAB Take one(1) tablet daily. (Patient not taking: Reported on 07/21/2024) No current fa (more content not included)... Normal [facility] CNOV Office Visit (REMS31 ) LIZETTE DAVIES ([id number]) 1945 F Date Time Provider Department 07/21/24 [...] transitional care- ECF - PT stopped at [facility]. Can walk some with walker- about 30 ' SBA ? Leg weakness N/T- baseline- feet and hands Legs- in knees down B/B cruz - feels but has urine incontinence Bowel cruz continent Pain 6-8 LS jxn upper buttock and achy On [...] disease), cervical MRI scanned into [facility] January 11, 2014 ([facility]) DDD (degenerative disc disease), lumbosacral Essential [...] EGD ESOPHAGOGASTRODUODENO SCOPY TRANSORAL DIAGNOSTIC 02/16/15 EGD [facility] inpt ESOPHAGOGASTRODUODENO SCOPY TRANSORAL DIAGNOSTIC 05/11/15 EGD EXTRACTION, ERUPTED TOOTH OR EXPOSED ROOT (ELEVATION AND/OR FORCEPS REMOVAL) 1970s Wi (more content not included)... Normal [facility] Comprehensive metabolic 2000 panelon 07-21-2024 Albumin [Mass/Vol] 3.9 g/dL Normal 3.9-4.9 [facility] Comment on above: Order Comment: Speci men Type: BLOOD SPECIMEN Ordering Facility: [facility] Address: [address] [place] [address] Performed By: #### 2 731-8, 09835-2, 3016-3, 2777-1 #### [facility] CLIA [id number] [address] [place] [address] [place] ALP [Catalytic activity/Vol] 108 U/L Normal 34-123 [facility] Comment on above: Order Comment: Speci men Type: BLOOD SPECIMEN Ordering Facility: [facility] Address: [address] [place], [place] [address] Performed By: #### 2 731-8, 45112-5, 3016-3, 277-1 #### [facility] CLIA [id number] [address] [place], [place] [address] [place] ALT [Catalytic activity/Vol] 13 U/L Normal 7-38 [facility] Comment on above: Order Comment: Speci men Type: BLOOD SPECIMEN Ordering Facility: [facility] Address: [address] [place] [address] Performed By: #### 2 731-8, 53363-5, 6-3, 277-1 #### [facility] CLIA [id number] [address] [place] [address] [place] Anion gap [Moles/Vol] 14 mmol/L Normal 8-15 [facility] Comment on above: Order Comment: Speci men Type: BLOOD SPECIMEN Ordering Facility: [facility] Address: [address] [place] [address] Performed By: #### 2 731-8, 76727-8, 3015-3, 277-1 #### [facility] CLIA [id number] [address] [place], [place] [address] [place] AST [Catalytic activity/Vol] 19 U/L Normal 13-35 [facility] Comment on above: Order Comment: Speci men Type: BLOOD SPECIMEN Ordering Facility: [facility] Address: [address] [place], [place] [address] Performed By: #### 2 731-8, 97881-0, 3015-3, 277-1 #### [facility] CLIA [id number] [address] [place], [place] [address] [place] Bilirubin [Mass/Vol] 0.3 mg/dL Normal 0.2-1.3 [facility] Comment on above: Order Comment: Speci men Type: BLOOD SPECIMEN Ordering Facility: [facility] Address: [address] [place] [address] Performed By: #### 2 731-8, 40706-8, 3015-3, 277-1 #### [facility] CLIA [id number] [address] [place] [address] [place] Calcium [Mass/Vol] 9.6 mg/dL Normal 8.5-10.2 [facility] Comment on above: Order Comment: Speci men Type: BLOOD SPECIMEN Ordering Facility: [facility] Address: [address] [place], [place] [address] Performed By: #### 2 731-8, 29126-8, 3015-3, 2776- #### [facility] CLIA [id number] [address] [place], [place] [address] [place] Chloride [Moles/Vol] 100 mmol/L Normal 98-107 [facility] Comment on above: Order Comment: Speci men Type: BLOOD SPECIMEN Ordering Facility: [facility] Address: [address] [place], [place] [address] Performed By: #### 2 731-8, 27649-2, 3015-3, 27709-28 #### [facility] CLIA [id number] [address] [place], [place] [address] [place] CO2 [Moles/Vol] 25 mmol/L Normal 22-30 [facility] Comment on above: Order Comment: Speci men Type: BLOOD SPECIMEN Ordering Facility: [facility] Address: [address] [place], [place] [address] Performed By: #### 2 731-8, 00257-3, 3015-3, 2777- #### [facility] CLIA [id number] [address] [place] [address] [place] Creatinine [Mass/Vol] 0.79 mg/dL Normal 0.58-0.96 [facility] Comment on above: Order Comment: Speci men Type: BLOOD SPECIMEN Ordering Facility: [facility] Address: [address] [place] [address] Performed By: #### 2 731-8, 85964-2, 3016-3, 2777-1 #### [facility] CLIA [id number] [address] [place] [address] [place] Creatinine and Glomerular filtration rate.predicted panel (S/P/Bld) 77 mL/min/1.73m??? Normal >=60 [facility] Comment on above: Order Comment: Iwona pedro Type: BLOOD SPECIMEN Ordering Facility: [facility] Address: [address] [place] [address] Result Comment: Brigida mated Glomerular Filtration Rate [...] actual GFR. Performed By: #### 2 731-8, 55666-6, 3016-3, 2777-1 #### [facility] CLIA [id number] [address] [place] [address] [place] Glucose [Mass/Vol] 97 mg/dL Normal 74-99 [facility] Comment on above: Order Comment: Iwona pedro Type: BLOOD SPECIMEN Ordering Facility: [facility] Address: [address] [place] [address] Result Comment: The [place] (ADA) provides guidance for cutoff [...] Standards of Medical Care in Diabetes 2016, [place]. Diabetes Care. 2016.39(Suppl 1). Performed By: #### 2 731-8, 33104-7, 3015-3, 2776- #### [facility] CLIA [id number] [address] [address] [place] Potassium [Moles/Vol] 5.1 mmol/L Normal 3.7-5.1 [facility] Comment on above: Order Comment: Speci men Type: BLOOD SPECIMEN Ordering Facility: [facility] Address: [address] [place], [place] [address] Performed By: #### 2 731-8, 40651-2, 3, 2776-03 #### [facility] CLIA [id number] [address] [place], [place] [address] [place] Protein [Mass/Vol] 7.0 g/dL Normal 6.3-8.0 [facility] Comment on above: Order Comment: Speci men Type: BLOOD SPECIMEN Ordering Facility: [facility] Address: [address] [place], [place] [address] Performed By: #### 2 731-8, 96086-4, 3, 2776-03 #### [facility] CLIA [id number] [address] [place], [place] [address] [place] Sodium [Moles/Vol] 139 mmol/L Normal 136-144 [facility] Comment on above: Order Comment: Speci men Type: BLOOD SPECIMEN Ordering Facility: [facility] Address: [address] [place] [address] Performed By: #### 2 731-8, 91477-9, 3, 2776-03 #### [facility] CLIA [id number] [address] [place] [address] [place] Urea nitrogen [Mass/Vol] 14 mg/dL Normal 7-21 [facility] Comment on above: Order Comment: Speci men Type: BLOOD SPECIMEN Ordering Facility: [facility] Address: [address] [place] [address] Performed By: #### 2 731-8, 82008-6, 3015-3, 2776-1 #### [facility] CLIA [id number] [address] [place] [address] [place] PTH-Intact SerPl-mCncon - Parathyrin.intact [Mass/Vol] 20 pg/mL Normal 15-65 [facility] Comment on above: Order Comment: Speci men Type: BLOOD SPECIMEN Ordering Facility: [facility] Address: [address] [place] [address] Performed By: #### 2 731-8, 93899-5, 3, 2776- #### [facility] CLIA [id number] [address] [place] [address] [place] Phosphate SerPl-mCncon 07-21 Phosphate [Mass/Vol] 3.9 mg/dL Normal 2.7-4.8 [facility] Comment on above: Order Comment: Speci men Type: BLOOD SPECIMEN Ordering Facility: [facility] Address: [address] [place] [address] Performed By: #### 2 731-8, 31832-4, 3015-3, 2776-1 #### [facility] CLIA [id number] [address] [place] [address] [place] TSH SerPl-aCncon 07-21-2024 TSH Qn 0.762 m[IU]/L Normal 0.270-4.200 [facility] Comment on above: Order Comment: Speci men Type: BLOOD SPECIMEN Ordering Facility: [facility] Address: [address] [place] [address] Performed By: #### 2 731-8, 65558-8, 3015-3, 277-1 #### [facility] CLIA [id number] [address] STATES OF [facility] Absolute lymphocyte countOrd ered By: Nikia Henderson on 07-20-2024 Lymphocytes Auto (Unsp spec) [#/Vol] 1.71 10*3/uL 0.83-4.51 [facility] Anion gap in Serum or Plasma Ordered By: Nikia Henderson on 07-20-2024 Anion gap [Moles/Vol] 10 mmol/L 5-15 [facility] Automated lymphocyte count a s percentage of total leukocytesOrdered By: Nikia Henderson on 07-20-2024 Lymphocytes/100 WBC Auto (Unsp spec) 28.0 % 19-41 [facility] BUN/creatinine ratioOrdered By: Nikia Henderson on 07-20-2024 Urea nitrogen/Creatinine [Mass ratio] 16.1 mg/mg 10-20 [facility] Basophil percentageOrdered B y: Nikia Henderson on 07-20-2024 Basophils/100 WBC (Bld) 0.7 % 0-1 [facility] Carbon dioxide, total [Moles /volume] in Central venous bloodOrdered By: Nikia Henderson on 07-20-2024 CO2 [Moles/Vol] 23.8 mmol/L 21.0-32.0 [facility] Chloride assayOrdered By: Cecilia Henderson on 07-20-2024 Chloride [Moles/Vol] 104 mmol/L 98-108 [facility] Eosinophil percentageOrdered By: Nikia Henderson on 07-20-2024 Eosinophils/100 WBC (Bld) 2.1 % 0-5 [facility] Erythrocyte distribution wid th ratioOrdered By: Nikia Henderson on 07-20-2024 Erythrocyte distribution width (RBC) [Ratio] 13.7 % 11.6-14.6 [facility] Erythrocyte distribution wid th standard deviationOrdered By: Nikia Henderson on 07-20-2024 Erythrocyte distribution width (RBC) [Ratio] 50.0 fl High 35.1-43.9 [facility] Glomerular filtration rate ( GFR) estimation/1.73 sq m using serum, plasma, or whole bOrdered By: Nikia Henderson on 07-20-2024 GFR/1.73 sq M.predicted among non-blacks MDRD (S/P/Bld) [Vol rate/Area] 92 mL/min/{1.73_m2} >60 [facility] Hematocrit Auto (Bld) [Volum e fraction]Ordered By: Nikia Henderson on 07-20-2024 Hematocrit (Bld) [Volume fraction] 33.5 % Low 37-47 [facility] Hemoglobin measurementOrdere d By: Nikia Henderson on 07-20-2024 Hemoglobin (Bld) [Mass/Vol] 11.3 g/dL Low 12.0-15. 0 [facility] Immature granulocytes/100 WB C Auto (Bld)Ordered By: Nikia Henderson on 07-20-2024 Immature granulocytes/100 WBC (Bld) 0.500 % 0.0-0.9 [facility] MCV (mean corpuscular volume ) determinationOrdered By: Nikia Henderson on 07-20-2024 MCV (RBC) [Entitic vol] 100.0 fL High 81-99 [facility] Mean corpuscular hemoglobin (MCH) determinationOrdered By: Nikia Henderson on 07-20-2024 MCH (RBC) [Entitic mass] 33.7 pg High 27.0-32.0 [facility] Monocyte percentageOrdered B y: Nikia Henderson on 07-20-2024 Monocytes/100 WBC (Bld) 10.2 % High 0-10 [facility] Neutrophil percentageOrdered By: guanakolake toxawayheladio Henderson on 07-20-2024 Neutrophils/100 WBC (Bld) 58.5 % 47-70 [facility] Platelet countOrdered By: Cecilia guanakoterra Henderson on 07-20-2024 Platelets (Bld) [#/Vol] 276 10*3/uL 150-450 [facility] Potassium measurement (mass/ volume)Ordered By: Nikia Henderson on 07-20-2024 Potassium (Unsp spec) [Mass/Vol] 4.1 mmol/L 3.3-5.1 [facility] RBC Auto (Bld) [#/Vol]Ordere d By: Nikia Henderson on 07-20-2024 RBC (Bld) [#/Vol] 3.35 10*6/uL Low 4.2-5.4 [facility] Serum creatinine measurement (mass/volume)Ordered By: Nikia Henderson on 07-20-2024 Creatinine [Mass/Vol] 0.59 mg/dL Low 0.70-1.20 [facility] Serum glucose measurement (m ass/volume)Ordered By: Nikia Henderson on 07-20-2024 Glucose [Mass/Vol] 85 mg/dL 70-99 [facility] Serum or plasma calcium gianluca urement (mass/volume)Ordered By: Nikia Henderson on 07-20-2024 Calcium [Mass/Vol] 9.1 mg/dL 7.6-11.0 [facility] Serum or plasma urea nitroge n measurement (mass/volume)Ordered By: Nikia Henderson on 07-20-2024 Urea nitrogen [Mass/Vol] 9 mg/dL 4-19 [facility] Sodium levelOrdered By: Catalina connerling Beatriz on 07-20-2024 Sodium [Moles/Vol] 138 mmol/L 133-145 [facility] White blood cell (WBC) count Ordered By: Nikia Henderson on 07-20-2024 WBC (Bld) [#/Vol] 6.1 10*3/uL 4.4-11.0 [facility] Absolute lymphocyte countOrd ered By: Nikia Henderson on 07-13-2024 Lymphocytes Auto (Unsp spec) [#/Vol] 1.48 10*3/uL 0.83-4.51 [facility] Absolute neutrophil countOrd ered By: Nikia Henderson on 07-13-2024 Absolute neutrophil count 3.7 X10^3/uL 2.0-7.7 [facility] Anion gap [Moles/Vol]Ordered By: Nikia Henderson on 07-13-2024 Anion gap in Serum or Plasma 9 5-15 [facility] Anion gap in Serum or Plasma Ordered By: Nikia Henderson on 07-13-2024 Anion gap [Moles/Vol] 9 mmol/L 5- [facility] Automated lymphocyte count a s percentage of total leukocytesOrdered By: Nikia Henderson on 07-13-2024 Lymphocytes/100 WBC Auto (Unsp spec) 24.8 % 19-41 [facility] BUN/creatinine ratioOrdered By: Nikia Henderson on 07-13-2024 Urea nitrogen/Creatinine [Mass ratio] 19.7 mg/mg 10- [facility] BUN/creatinine ratio 19.7 RATIO 10-20 [facility] Basophil percentageOrdered B y: Nikia Henderson on 07-13-2024 Basophils/100 WBC (Bld) 0.8 % 0-1 [facility] Basophil percentage 0.8 % 0-1 [facility] Calcium [Mass/Vol]Ordered By : Nikia Henderson on 07-13-2024 Serum or plasma calcium measurement (mass/volume) 8.8 mg/dL 7.6-11.0 [facility] Carbon dioxide, total [Moles /volume] in Central venous bloodOrdered By: Nikia Henderson on 07-13-2024 CO2 [Moles/Vol] 24.1 mmol/L 21.0-32.0 [facility] Carbon dioxide, total [Moles/volume] in Central venous blood 24.1 mmol/L 21.0-32.0 [facility] Chloride assayOrdered By: Cecilia Henderson on 07-13-2024 Chloride [Moles/Vol] 108 mmol/L 98-108 [facility] Chloride assay 108 mmol/L 98-108 [facility] Creatinine [Mass/Vol]Ordered By: Nikia Henderson on 07-13-2024 Serum creatinine measurement (mass/volume) 0.59 mg/dL Low 0.70-1.20 [facility] Eosinophil percentageOrdered By: Nikia Henderson on 07-13-2024 Eosinophils/100 WBC (Bld) 2.9 % 0-5 [facility] Eosinophil percentage 2.9 % 0-5 [facility] Erythrocyte distribution wid th (RBC) [Ratio]Ordered By: Nikia Henderson on 07-13-2024 Erythrocyte distribution width ratio 14.2 % 11.6-14.6 [facility] Erythrocyte distribution width standard deviation 52.8 fl High 35.1-43.9 [facility] Erythrocyte distribution wid th ratioOrdered By: Nikia Henderson on 07-13-2024 Erythrocyte distribution width (RBC) [Ratio] 14.2 % 11.6-14.6 [facility] Erythrocyte distribution wid th standard deviationOrdered By: Nikia Henderson on 07-13-2024 Erythrocyte distribution width (RBC) [Ratio] 52.8 fl High 35.1-43.9 [facility] GFR/1.73 sq M.predicted viji g non-blacks MDRD (S/P/Bld) [Vol rate/Area]Ordered By: Nikia Henderson on 07-13-2024 Glomerular filtration rate (GFR) estimation/1.73 sq m using serum, plasma, or whole b 92 >60 [facility] Glomerular filtration rate ( GFR) estimation/1.73 sq m using serum, plasma, or whole bOrdered By: Nikia Henderson on 07-13-2024 GFR/1.73 sq M.predicted among non-blacks MDRD (S/P/Bld) [Vol rate/Area] 92 mL/min/{1.73_m2} >60 [facility] Glucose [Mass/Vol]Ordered By : Nikia Henderson on 07-13-2024 Serum glucose measurement (mass/volume) 84 mg/dL 70-99 [facility] Hematocrit Auto (Bld) [Volum e fraction]Ordered By: Nikia Henderson on 07-13-2024 Hematocrit (Bld) [Volume fraction] 32.8 % Low 37-47 [facility] Automated blood hematocrit (percentage) 32.8 % Low 37-47 [facility] [facility] Hemoglobin measurementOrdere d By: Nikia Henderson on 07-13-2024 Hemoglobin (Bld) [Mass/Vol] 10.8 g/dL Low 12.0-15. 0 [facility] Hemoglobin measurement 10.8 g/dL Low 12.0-15.0 [facility] Immature granulocytes/100 WB C Auto (Bld)Ordered By: Nikia Henderson on 07-13-2024 Immature granulocytes/100 WBC (Bld) 0.700 % 0.0-0.9 [facility] Automated immature granulocyte percentage 0.700 % 0.0-0.9 [facility] Lymphocytes Auto (Unsp spec) [#/Vol]Ordered By: Nikia Henderson on 07-13-2024 Absolute lymphocyte count 1.48 X10^3/uL 0.83-4. 51 [facility] Lymphocytes/100 WBC Auto (Un sp spec)Ordered By: Nikia Henderson on 07-13-2024 Automated lymphocyte count as percentage of total leukocytes 24.8 % 19-41 [facility] MCV (RBC) [Entitic vol]Order ed By: Nikia Henderson on 07-13-2024 MCV (mean corpuscular volume) determination 102.2 fL High 81-99 [facility] MCV (mean corpuscular volume ) determinationOrdered By: Nikia Henderson on 07-13-2024 MCV (RBC) [Entitic vol] 102.2 fL High 81-99 [facility] Mean corpuscular hemoglobin (MCH) determinationOrdered By: Nikia Henderson on 07-13-2024 MCH (RBC) [Entitic mass] 33.6 pg High 27.0-32.0 [facility] Mean corpuscular hemoglobin (MCH) determination 33.6 pg High 27.0-32.0 [facility] Mean corpuscular hemoglobin concentration (MCHC) determinationOrdered By: Nikia Henderson on 07-13-2024 Mean corpuscular hemoglobin concentration (MCHC) determination 32.9 g/dL 32-36 [facility] Mean platelet volume determi nationOrdered By: guanakolake toxawayheladio Henderson on 07-13-2024 Mean platelet volume determination 9.5 fl 6.2-12.0 [facility] Monocyte percentageOrdered B y: Nikia Henderson on 07-13-2024 Monocytes/100 WBC (Bld) 9.1 % 0-10 [facility] Monocyte percentage 9.1 % 0-10 [facility] Neutrophil percentageOrdered By: Nikia Henderson on 07-13-2024 Neutrophils/100 WBC (Bld) 61.7 % 47-70 [facility] Neutrophil percentage 61.7 % 47-70 [facility] Nucleated red blood cell per centageOrdered By: Nikia Henderson on 07-13-2024 Nucleated red blood cell percentage 0 % 0-5 [facility] Platelet countOrdered By: Cecilia guanakoterra Henderson on 07-13-2024 Platelets (Bld) [#/Vol] 267 10*3/uL 150-450 [facility] Platelet count 267 K/mm3 150-450 [facility] Potassium (Unsp spec) [Mass/ Vol]Ordered By: Nikia Henderson on 07-13-2024 Potassium measurement (mass/volume) 4.1 mmol/L 3.3-5.1 [facility] Potassium measurement (mass/ volume)Ordered By: Nikia Henderson on 07-13-2024 Potassium (Unsp spec) [Mass/Vol] 4.1 mmol/L 3.3-5.1 [facility] RBC Auto (Bld) [#/Vol]Ordere d By: Nikia Henderson on 07-13-2024 RBC (Bld) [#/Vol] 3.21 10*6/uL Low 4.2-5.4 [facility] Automated blood erythrocyte count 3.21 M/mm3 Low 4.2-5.4 [facility] Serum creatinine measurement (mass/volume)Ordered By: Nikia Henderson on 07-13-2024 Creatinine [Mass/Vol] 0.59 mg/dL Low 0.70-1.20 [facility] Serum glucose measurement (m ass/volume)Ordered By: Nikia Henderson on 07-13-2024 Glucose [Mass/Vol] 84 mg/dL 70-99 [facility] Serum or plasma calcium gianluca urement (mass/volume)Ordered By: Nikia Henderson on 07-13-2024 Calcium [Mass/Vol] 8.8 mg/dL 7.6-11.0 [facility] Serum or plasma urea nitroge n measurement (mass/volume)Ordered By: Nikia Henderson on 04-15-2025 Urea nitrogen [Mass/Vol] 12 mg/dL 07-17 [facility] Sodium levelOrdered By: Catalina terra Beatriz on 07-13-2024 Sodium [Moles/Vol] 141 mmol/L 133-145 [facility] Sodium level 141 mmol/L 133-145 [facility] Urea nitrogen [Mass/Vol]Orde red By: Nikia Henderson on 07-13-2024 Serum or plasma urea nitrogen measurement (mass/volume) 12 mg/dL - [facility] White blood cell (WBC) count Ordered By: Nikia Henderson on 07-13-2024 WBC (Bld) [#/Vol] 6.0 10*3/uL 4.4-11.0 [facility] White blood cell (WBC) count 6.0 K/mm3 4.4-11.0 [facility] CNPNon 07-08-2024 CNPN Telephone ([id number]) KEKELIZETTE Teri ([id number]) 1945 F Date Time Provider Department 07/08/24 JOVANNI MATTHEW [id number] During your visit today, we recorded the following information about you: Andressa Arias 07/08/2024 1:55 PM Signed New Patient appointment on 07/21/24 Received outside hospital, [facility] Radiology reports for x-rays and MRIs for [...] mouth once daily. - COMPOUNDED PRESCRIPTION Viki santana 17 drops daily and working up to 60 drops daily (in divided doses). Serving size 30 drops. Mineral water and ethanol 20-24%) - OTC NUTRITIONAL SUPPLEMENT zypan supplement - COMPOUNDED PRESCRIPTION Home Health deck hand, aide, PT. Dx: Bilat sprained ankles, gait [...] NOS [K92.2] 03/08/2005 MYALGIA AND MYOSITIS NOS [[id number]] 09/02/2005 CONGENITAL PES PLANUS [Q66.50] 06/29/2007 Tibialis [...] Status:Closed by JOVANNI MATTHEW on 07/26/24 Normal [facility] Absolute lymphocyte countOrd ered By: Nikia Henderson on 07-06-2024 Lymphocytes Auto (Unsp spec) [#/Vol] 1.68 10*3/uL 0.83-4.51 [facility] Absolute neutrophil countOrd ered By: Nikia Henderson on 07-06-2024 Neutrophils (Bld) [#/Vol] 4.0 10*3/uL 2.0-7.7 [facility] Absolute neutrophil count 4.0 X10^3/uL 2.0-7.7 [facility] Anion gap [Moles/Vol]Ordered By: Nikia Henderson on 07-06-2024 Anion gap in Serum or Plasma 10 5-15 [facility] Anion gap in Serum or Plasma Ordered By: Catalinalake toxawayheladio Henderson on 07-06-2024 Anion gap [Moles/Vol] 10 mmol/L 5-15 [facility] Automated lymphocyte count a s percentage of total leukocytesOrdered By: Nikia Henderson on 07-06-2024 Lymphocytes/100 WBC Auto (Unsp spec) 25.1 % 19-41 [facility] BUN/creatinine ratioOrdered By: Nikia Henderson on 07-06-2024 Urea nitrogen/Creatinine [Mass ratio] 23.7 mg/mg High 10-20 [facility] BUN/creatinine ratio 23.7 RATIO High 10-20 [facility] Basophil percentageOrdered B y: Nikia Henderson on 07-06-2024 Basophils/100 WBC (Bld) 0.9 % 0-1 [facility] Basophil percentage 0.9 % 0-1 [facility] Calcium [Mass/Vol]Ordered By : Nikia Henderson on 07-06-2024 Serum or plasma calcium measurement (mass/volume) 8.8 mg/dL 7.6-11.0 [facility] Carbon dioxide, total [Moles /volume] in Central venous bloodOrdered By: Nikia Henderson on 07-06-2024 CO2 [Moles/Vol] 22.4 mmol/L 21.0-32.0 [facility] Carbon dioxide, total [Moles/volume] in Central venous blood 22.4 mmol/L 21.0-32.0 [facility] Chloride assayOrdered By: Cecilia Henderson on 07-06-2024 Chloride [Moles/Vol] 108 mmol/L 98-108 [facility] Chloride assay 108 mmol/L 98-108 [facility] Creatinine [Mass/Vol]Ordered By: Nikia Henderson on 07-06-2024 Serum creatinine measurement (mass/volume) 0.76 mg/dL 0.70-1.20 [facility] Eosinophil percentageOrdered By: Nikia Henderson on 07-06-2024 Eosinophils/100 WBC (Bld) 2.5 % 0-5 [facility] Eosinophil percentage 2.5 % 0-5 [facility] Erythrocyte distribution wid th (RBC) [Ratio]Ordered By: Nikia Henderson on 07-06-2024 Erythrocyte distribution width ratio 14.3 % 11.6-14.6 [facility] Erythrocyte distribution width (RBC) [Entitic vol] 53.8 fL High 35.1-43.9 [facility] Erythrocyte distribution width standard deviation 53.8 fl High 35.1-43.9 [facility] Erythrocyte distribution wid th ratioOrdered By: Nikia Henderson on 07-06-2024 Erythrocyte distribution width (RBC) [Ratio] 14.3 % 11.6-14.6 [facility] Erythrocyte distribution wid th standard deviationOrdered By: Nikia Henderson on 07-06-2024 Erythrocyte distribution width (RBC) [Ratio] 53.8 fl High 35.1-43.9 [facility] GFR/1.73 sq M.predicted viji g non-blacks MDRD (S/P/Bld) [Vol rate/Area]Ordered By: Nikia Henderson on 07-06-2024 Estimated GFR (MDRD) Non-Af Amer 80 >60 [facility] Comment on above: mL/min/1.73m2 CKD-EP I Creatinine Equation (2020) Glomerular filtration rate (GFR) estimation/1.73 sq m using serum, plasma, or whole b 80 >60 [facility] Glomerular filtration rate ( GFR) estimation/1.73 sq m using serum, plasma, or whole bOrdered By: Nikia Henderson on 07-06-2024 GFR/1.73 sq M.predicted among non-blacks MDRD (S/P/Bld) [Vol rate/Area] 80 mL/min/{1.73_m2} >60 [facility] Glucose [Mass/Vol]Ordered By : Nikia Henderson on 07-06-2024 Serum glucose measurement (mass/volume) 90 mg/dL 70-99 [facility] Hematocrit Auto (Bld) [Volum e fraction]Ordered By: Nikia Henderson on 07-06-2024 Hematocrit (Bld) [Volume fraction] 34.4 % Low 37-47 [facility] Automated blood hematocrit (percentage) 34.4 % Low 37-47 [facility] Hemoglobin measurementOrdere d By: Nikia Henderson on 07-06-2024 Hemoglobin (Bld) [Mass/Vol] 11.1 g/dL Low 12.0-15. 0 [facility] Hemoglobin measurement 11.1 g/dL Low 12.0-15.0 [facility] Immature granulocytes/100 WB C Auto (Bld)Ordered By: Nikia Henderson on 07-06-2024 Immature granulocytes/100 WBC (Bld) 1.300 % High 0.0-0.9 [facility] Comment on above: IG% - Immature Granu locytes (promyelocytes, myelocytes and metamyelocytes) > 1% indicates that a LEFT SHIFT is Present. Automated immature granulocyte percentage 1.300 % High 0.0-0.9 [facility] Lymphocytes Auto (Unsp spec) [#/Vol]Ordered By: Nikia Henderson on 07-06-2024 Lymphocytes (Bld) [#/Vol] 1.68 10*3/uL 0.83-4.5 1 [facility] Absolute lymphocyte count 1.68 X10^3/uL 0.83-4. 51 [facility] Lymphocytes/100 WBC Auto (Un sp spec)Ordered By: Nikia Henderson on 07-06-2024 Lymphocytes/100 WBC (Bld) 25.1 % - [facility] Automated lymphocyte count as percentage of total leukocytes 25.1 % -41 [facility] MCV (RBC) [Entitic vol]Order ed By: Nikia Henderson on 07-06-2024 MCV (mean corpuscular volume) determination 103.6 fL High 81-99 [facility] MCV (mean corpuscular volume ) determinationOrdered By: Nikia Henderson on 07-06-2024 MCV (RBC) [Entitic vol] 103.6 fL High 81-99 [facility] Mean corpuscular hemoglobin (MCH) determinationOrdered By: Nikia Henderson on 07-06-2024 MCH (RBC) [Entitic mass] 33.4 pg High 27.0-32.0 [facility] Mean corpuscular hemoglobin (MCH) determination 33.4 pg High 27.0-32.0 [facility] Mean corpuscular hemoglobin concentration (MCHC) determinationOrdered By: Nikia Henderson on 07-06-2024 MCHC (RBC) [Mass/Vol] 32.3 g/dL 32-36 [facility] Mean corpuscular hemoglobin concentration (MCHC) determination 32.3 g/dL -36 [facility] Mean platelet volume determi nationOrdered By: Nikia Henderson on 07-06-2024 Platelet mean volume (Bld) [Entitic vol] 9.4 fL 6.2-12.0 [facility] Mean platelet volume determination 9.4 fl 6.2-12.0 [facility] Monocyte percentageOrdered B y: Nikia Henderson on 07-06-2024 Monocytes/100 WBC (Bld) 10.8 % High 0-10 [facility] Monocyte percentage 10.8 % High 0-10 [facility] Neutrophil percentageOrdered By: Nikia Henderson on 07-06-2024 Neutrophils/100 WBC (Bld) 59.4 % 47-70 [facility] Neutrophil percentage 59.4 % 47-70 [facility] Nucleated red blood cell per centageOrdered By: Nikia Henderson on 07-06-2024 Nucleated RBC/100 WBC (Bld) [Ratio] 0 % 0-5 [facility] Nucleated red blood cell percentage 0 % 0-5 [facility] Platelet countOrdered By: Cecilia Henderson on 07-06-2024 Platelets (Bld) [#/Vol] 299 10*3/uL 150-450 [facility] Platelet count 299 K/mm3 150-450 [facility] Potassium (Unsp spec) [Mass/ Vol]Ordered By: Nikia Henderson on 07-06-2024 Potassium [Moles/Vol] 4.3 mmol/L 3.3-5.1 [facility] Potassium measurement (mass/volume) 4.3 mmol/L 3.3-5.1 [facility] Potassium measurement (mass/ volume)Ordered By: Nikia Henderson on 07-06-2024 Potassium (Unsp spec) [Mass/Vol] 4.3 mmol/L 3.3-5.1 [facility] RBC Auto (Bld) [#/Vol]Ordere d By: Nikia Henderson on 07-06-2024 RBC (Bld) [#/Vol] 3.32 10*6/uL Low 4.2-5.4 [facility] Automated blood erythrocyte count 3.32 M/mm3 Low 4.2-5.4 [facility] Serum creatinine measurement (mass/volume)Ordered By: Nikia Henderson on 07-06-2024 Creatinine [Mass/Vol] 0.76 mg/dL 0.70-1.20 [facility] Serum glucose measurement (m ass/volume)Ordered By: Nikia Henderson on 07-06-2024 Glucose [Mass/Vol] 90 mg/dL 70-99 [facility] Serum or plasma calcium gianluca urement (mass/volume)Ordered By: Nikia Henderson on 07-06-2024 Calcium [Mass/Vol] 8.8 mg/dL 7.6-11.0 [facility] Serum or plasma urea nitroge n measurement (mass/volume)Ordered By: Nikia Henderson on 07-06-2024 Urea nitrogen [Mass/Vol] 18 mg/dL - [facility] Sodium levelOrdered By: Catalina connerling Beatriz on 07-06-2024 Sodium [Moles/Vol] 140 mmol/L 133-145 [facility] Sodium level 140 mmol/L 133-145 [facility] Urea nitrogen [Mass/Vol]Orde red By: Nikia Henderson on 07-06-2024 Serum or plasma urea nitrogen measurement (mass/volume) 18 mg/dL - [facility] White blood cell (WBC) count Ordered By: Nikia Henderson on 07-06-2024 WBC (Bld) [#/Vol] 6.7 10*3/uL 4.4-11.0 [facility] White blood cell (WBC) count 6.7 K/mm3 4.4-11.0 [facility] Absolute lymphocyte countOrd ered By: Audra Drake on 06-29-2024 Lymphocytes Auto (Unsp spec) [#/Vol] 1.28 10*3/uL 0.83-4.51 [facility] Absolute neutrophil countOrd ered By: Audra Drake on 06-29-2024 Neutrophils (Bld) [#/Vol] 4.0 10*3/uL 2.0-7.7 [facility] Absolute neutrophil count 4.0 X10^3/uL 2.0-7.7 [facility] Anion gap [Moles/Vol]Ordered By: Audra Drake on 06-29-2024 Anion gap in Serum or Plasma 10 5-15 [facility] Anion gap in Serum or Plasma Ordered By: Audra Drake on 06-29-2024 Anion gap [Moles/Vol] 10 mmol/L 5-15 [facility] Automated lymphocyte count a s percentage of total leukocytesOrdered By: Audra Drake on 06-29-2024 Lymphocytes/100 WBC Auto (Unsp spec) 20.1 % 19-41 [facility] BUN/creatinine ratioOrdered By: Audra Drake on 06-29-2024 Urea nitrogen/Creatinine [Mass ratio] 18.5 mg/mg 10-20 [facility] BUN/creatinine ratio 18.5 RATIO 10-20 [facility] Basophil percentageOrdered B y: Audra Drake on 06-29-2024 Basophils/100 WBC (Bld) 0.9 % 0-1 [facility] Basophil percentage 0.9 % 0-1 [facility] Calcium [Mass/Vol]Ordered By : Audra Drake on 06-29-2024 Serum or plasma calcium measurement (mass/volume) 9.0 mg/dL 7.6-11.0 [facility] Carbon dioxide, total [Moles /volume] in Central venous bloodOrdered By: Audra Drake on 06-29-2024 CO2 [Moles/Vol] 21.5 mmol/L 21.0-32.0 [facility] Carbon dioxide, total [Moles/volume] in Central venous blood 21.5 mmol/L 21.0-32.0 [facility] Chloride assayOrdered By: Dimitris Drake on 06-29-2024 Chloride [Moles/Vol] 109 mmol/L High 98-108 [facility] Chloride assay 109 mmol/L High 98-108 [facility] Creatinine [Mass/Vol]Ordered By: Audra Drake on 06-29-2024 Serum creatinine measurement (mass/volume) 0.65 mg/dL Low 0.70-1.20 [facility] Eosinophil percentageOrdered By: Audra Drake on 06-29-2024 Eosinophils/100 WBC (Bld) 2.5 % 0-5 [facility] Eosinophil percentage 2.5 % 0-5 [facility] Erythrocyte distribution wid th (RBC) [Ratio]Ordered By: Audra Drake on 06-29-2024 Erythrocyte distribution width ratio 14.0 % 11.6-14.6 [facility] Erythrocyte distribution width (RBC) [Entitic vol] 51.9 fL High 35.1-43.9 [facility] Erythrocyte distribution width standard deviation 51.9 fl High 35.1-43.9 [facility] Erythrocyte distribution wid th ratioOrdered By: Audra Drake on 06-29-2024 Erythrocyte distribution width (RBC) [Ratio] 14.0 % 11.6-14.6 [facility] Erythrocyte distribution wid th standard deviationOrdered By: Audra Drake on 06-29-2024 Erythrocyte distribution width (RBC) [Ratio] 51.9 fl High 35.1-43.9 [facility] GFR/1.73 sq M.predicted viji g non-blacks MDRD (S/P/Bld) [Vol rate/Area]Ordered By: Audra Drake on 06-29-2024 Estimated GFR (MDRD) Non-Af Amer 90 >60 [facility] Comment on above: mL/min/1.73m2 CKD-EP I Creatinine Equation (2020) Glomerular filtration rate (GFR) estimation/1.73 sq m using serum, plasma, or whole b 90 >60 [facility] Glomerular filtration rate ( GFR) estimation/1.73 sq m using serum, plasma, or whole bOrdered By: Audra Drake on 06-29-2024 GFR/1.73 sq M.predicted among non-blacks MDRD (S/P/Bld) [Vol rate/Area] 90 mL/min/{1.73_m2} >60 [facility] Glucose [Mass/Vol]Ordered By : Audra Drake on 06-29-2024 Serum glucose measurement (mass/volume) 84 mg/dL 70-99 [facility] Hematocrit Auto (Bld) [Volum e fraction]Ordered By: Audra Drake on 06-29-2024 Hematocrit (Bld) [Volume fraction] 35.7 % Low 37-47 [facility] Automated blood hematocrit (percentage) 35.7 % Low 37-47 [facility] Hemoglobin measurementOrdere d By: Audra Drake on 06-29-2024 Hemoglobin (Bld) [Mass/Vol] 11.5 g/dL Low 12.0-15. 0 [facility] Hemoglobin measurement 11.5 g/dL Low 12.0-15.0 [facility] Immature granulocytes/100 WB C Auto (Bld)Ordered By: Audra Drake on 06-29-2024 Immature granulocytes/100 WBC (Bld) 1.100 % High 0.0-0.9 [facility] Comment on above: IG% - Immature Granu locytes (promyelocytes, myelocytes and metamyelocytes) > 1% indicates that a LEFT SHIFT is Present. Automated immature granulocyte percentage 1.100 % High 0.0-0.9 [facility] Lymphocytes Auto (Unsp spec) [#/Vol]Ordered By: Audra Drake on 06-29-2024 Lymphocytes (Bld) [#/Vol] 1.28 10*3/uL 0.83-4.5 1 [facility] Absolute lymphocyte count 1.28 X10^3/uL 0.83-4. 51 [facility] Lymphocytes/100 WBC Auto (Un sp spec)Ordered By: Audra Drake on 06-29-2024 Lymphocytes/100 WBC (Bld) 20.1 % [facility] Automated lymphocyte count as percentage of total leukocytes 20.1 % [facility] MCV (RBC) [Entitic vol]Order ed By: Audra Drake on 06-29-2024 MCV (mean corpuscular volume) determination 99.7 fL High 81-99 [facility] MCV (mean corpuscular volume ) determinationOrdered By: Audra Drake on 06-29-2024 MCV (RBC) [Entitic vol] 99.7 fL High 81-99 [facility] Mean corpuscular hemoglobin (MCH) determinationOrdered By: Audra Drake on 06-29-2024 MCH (RBC) [Entitic mass] 32.1 pg High 27.0-32.0 [facility] Mean corpuscular hemoglobin (MCH) determination 32.1 pg High 27.0-32.0 [facility] Mean corpuscular hemoglobin concentration (MCHC) determinationOrdered By: Audra Drake on 06-29-2024 MCHC (RBC) [Mass/Vol] 32.2 g/dL -36 [facility] Mean corpuscular hemoglobin concentration (MCHC) determination 32.2 g/dL -36 [facility] Mean platelet volume determi nationOrdered By: Audra Drake on 06-29-2024 Platelet mean volume (Bld) [Entitic vol] 9.5 fL 6.2-12.0 [facility] Mean platelet volume determination 9.5 fl 6.2-12.0 [facility] Monocyte percentageOrdered B y: Audra Drake on 06-29-2024 Monocytes/100 WBC (Bld) 12.3 % High 0-10 [facility] Monocyte percentage 12.3 % High 0-10 [facility] Neutrophil percentageOrdered By: Audra Drake on 06-29-2024 Neutrophils/100 WBC (Bld) 63.1 % 47-70 [facility] Neutrophil percentage 63.1 % 47-70 [facility] Nucleated red blood cell per centageOrdered By: Audra Drake on 06-29-2024 Nucleated RBC/100 WBC (Bld) [Ratio] 0 % 0-5 [facility] Nucleated red blood cell percentage 0 % 0-5 [facility] Platelet countOrdered By: Dimitris Drake on 06-29-2024 Platelets (Bld) [#/Vol] 307 10*3/uL 150-450 [facility] Platelet count 307 K/mm3 150-450 [facility] Potassium (Unsp spec) [Mass/ Vol]Ordered By: Audra Drake on 06-29-2024 Potassium [Moles/Vol] 4.4 mmol/L 3.3-5.1 [facility] Potassium measurement (mass/volume) 4.4 mmol/L 3.3-5.1 [facility] Potassium measurement (mass/ volume)Ordered By: Audra Drake on 06-29-2024 Potassium (Unsp spec) [Mass/Vol] 4.4 mmol/L 3.3-5.1 [facility] RBC Auto (Bld) [#/Vol]Ordere d By: Audra Drake on 06-29-2024 RBC (Bld) [#/Vol] 3.58 10*6/uL Low 4.2-5.4 [facility] Automated blood erythrocyte count 3.58 M/mm3 Low 4.2-5.4 [facility] Serum creatinine measurement (mass/volume)Ordered By: Audra Drake on 06-29-2024 Creatinine [Mass/Vol] 0.65 mg/dL Low 0.70-1.20 [facility] Serum glucose measurement (m ass/volume)Ordered By: Audra Drake on 06-29-2024 Glucose [Mass/Vol] 84 mg/dL 70-99 [facility] Serum or plasma calcium gianluca urement (mass/volume)Ordered By: Audra Drake on 06-29-2024 Calcium [Mass/Vol] 9.0 mg/dL 7.6-11.0 [facility] Serum or plasma urea nitroge n measurement (mass/volume)Ordered By: Audra Drake on 06-29-2024 Urea nitrogen [Mass/Vol] 12 mg/dL 07-17 [facility] Sodium levelOrdered By: Cony Drake on 06-29-2024 Sodium [Moles/Vol] 140 mmol/L 133-145 [facility] Sodium level 140 mmol/L 133-145 [facility] [facility] Urea nitrogen [Mass/Vol]Orde red By: Audra Drake on 06-29-2024 Serum or plasma urea nitrogen measurement (mass/volume) 12 mg/dL - [facility] White blood cell (WBC) count Ordered By: Audra Drake on 06-29-2024 WBC (Bld) [#/Vol] 6.4 10*3/uL 4.4-11.0 [facility] White blood cell (WBC) count 6.4 K/mm3 4.4-11.0 [facility] Absolute lymphocyte countOrd ered By: Audra Drake on 06-22-2024 Lymphocytes Auto (Unsp spec) [#/Vol] 1.15 10*3/uL 0.83-4.51 [facility] Absolute neutrophil countOrd ered By: Audra Drake on 06-22-2024 Neutrophils (Bld) [#/Vol] 4.9 10*3/uL 2.0-7.7 [facility] Absolute neutrophil count 4.9 X10^3/uL 2.0-7.7 [facility] Anion gap [Moles/Vol]Ordered By: Audra Drake on 06-22-2024 Anion gap in Serum or Plasma 11 5- [facility] Anion gap in Serum or Plasma Ordered By: Audra Drake on 06-22-2024 Anion gap [Moles/Vol] 11 mmol/L - [facility] Automated lymphocyte count a s percentage of total leukocytesOrdered By: Audra Drake on 06-22-2024 Lymphocytes/100 WBC Auto (Unsp spec) 16.2 % Low 19-41 [facility] BUN/creatinine ratioOrdered By: Audra Drake on 06-22-2024 Urea nitrogen/Creatinine [Mass ratio] 18.7 mg/mg 10-20 [facility] BUN/creatinine ratio 18.7 RATIO 10-20 [facility] Basophil percentageOrdered B y: Audra Drake on 06-22-2024 Basophils/100 WBC (Bld) 0.6 % 0-1 [facility] Basophil percentage 0.6 % 0-1 [facility] Calcium [Mass/Vol]Ordered By : Audra Drake on 06-22-2024 Serum or plasma calcium measurement (mass/volume) 8.6 mg/dL 7.6-11.0 [facility] Carbon dioxide, total [Moles /volume] in Central venous bloodOrdered By: Audra Drake on 06-22-2024 CO2 [Moles/Vol] 19.5 mmol/L Low 21.0-32.0 [facility] Carbon dioxide, total [Moles/volume] in Central venous blood 19.5 mmol/L Low 21.0-32.0 [facility] Chloride assayOrdered By: Dimitris Drake on 06-22-2024 Chloride [Moles/Vol] 107 mmol/L 98-108 [facility] Chloride assay 107 mmol/L 98-108 [facility] Creatinine [Mass/Vol]Ordered By: Audra Drake on 06-22-2024 Serum creatinine measurement (mass/volume) 0.78 mg/dL 0.70-1.20 [facility] Eosinophil percentageOrdered By: Audra Drake on 06-22-2024 Eosinophils/100 WBC (Bld) 2.3 % 0-5 [facility] Eosinophil percentage 2.3 % 0-5 [facility] Erythrocyte distribution wid th (RBC) [Ratio]Ordered By: Audra Drake on 06-22-2024 Erythrocyte distribution width ratio 13.9 % 11.6-14.6 [facility] Erythrocyte distribution width (RBC) [Entitic vol] 51.1 fL High 35.1-43.9 [facility] Erythrocyte distribution width standard deviation 51.1 fl High 35.1-43.9 [facility] Erythrocyte distribution wid th ratioOrdered By: Audra Drake on 06-22-2024 Erythrocyte distribution width (RBC) [Ratio] 13.9 % 11.6-14.6 [facility] Erythrocyte distribution wid th standard deviationOrdered By: Audra Drake on 06-22-2024 Erythrocyte distribution width (RBC) [Ratio] 51.1 fl High 35.1-43.9 [facility] GFR/1.73 sq M.predicted viji g non-blacks MDRD (S/P/Bld) [Vol rate/Area]Ordered By: Audra Drake on 06-22-2024 Estimated GFR (MDRD) Non-Af Amer 78 >60 [facility] Comment on above: mL/min/1.73m2 CKD-EP I Creatinine Equation (2020) Glomerular filtration rate (GFR) estimation/1.73 sq m using serum, plasma, or whole b 78 >60 [facility] Glomerular filtration rate ( GFR) estimation/1.73 sq m using serum, plasma, or whole bOrdered By: Audra Drake on 06-22-2024 GFR/1.73 sq M.predicted among non-blacks MDRD (S/P/Bld) [Vol rate/Area] 78 mL/min/{1.73_m2} >60 [facility] Glucose [Mass/Vol]Ordered By : Audra Drake on 06-22-2024 Serum glucose measurement (mass/volume) 91 mg/dL 70-99 [facility] Hematocrit Auto (Bld) [Volum e fraction]Ordered By: Audra Drake on 06-22-2024 Hematocrit (Bld) [Volume fraction] 35.7 % Low 37-47 [facility] Automated blood hematocrit (percentage) 35.7 % Low 37-47 [facility] Hemoglobin measurementOrdere d By: Audra Drake on 06-22-2024 Hemoglobin (Bld) [Mass/Vol] 11.6 g/dL Low 12.0-15. 0 [facility] Hemoglobin measurement 11.6 g/dL Low 12.0-15.0 [facility] Immature granulocytes/100 WB C Auto (Bld)Ordered By: Audra Drake on 06-22-2024 Immature granulocytes/100 WBC (Bld) 1.100 % High 0.0-0.9 [facility] Comment on above: IG% - Immature Granu locytes (promyelocytes, myelocytes and metamyelocytes) > 1% indicates that a LEFT SHIFT is Present. Automated immature granulocyte percentage 1.100 % High 0.0-0.9 [facility] Lymphocytes Auto (Unsp spec) [#/Vol]Ordered By: Audra Drake on 06-22-2024 Lymphocytes (Bld) [#/Vol] 1.15 10*3/uL 0.83-4.5 1 [facility] Absolute lymphocyte count 1.15 X10^3/uL 0.83-4. 51 [facility] Lymphocytes/100 WBC Auto (Un sp spec)Ordered By: Audra Drake on 06-22-2024 Lymphocytes/100 WBC (Bld) 16.2 % Low - [facility] Automated lymphocyte count as percentage of total leukocytes 16.2 % Low -41 [facility] MCV (RBC) [Entitic vol]Order ed By: Audra Drake on 06-22-2024 MCV (mean corpuscular volume) determination 100.3 fL High 81-99 [facility] MCV (mean corpuscular volume ) determinationOrdered By: Audra Drake on 06-22-2024 MCV (RBC) [Entitic vol] 100.3 fL High 81-99 [facility] Mean corpuscular hemoglobin (MCH) determinationOrdered By: Audra Drake on 06-22-2024 MCH (RBC) [Entitic mass] 32.6 pg High 27.0-32.0 [facility] Mean corpuscular hemoglobin (MCH) determination 32.6 pg High 27.0-32.0 [facility] Mean corpuscular hemoglobin concentration (MCHC) determinationOrdered By: Audra Drake on 06-22-2024 MCHC (RBC) [Mass/Vol] 32.5 g/dL -36 [facility] Mean corpuscular hemoglobin concentration (MCHC) determination 32.5 g/dL -36 [facility] Mean platelet volume determi nationOrdered By: Audra Drake on 06-22-2024 Platelet mean volume (Bld) [Entitic vol] 9.9 fL 6.2-12.0 [facility] Mean platelet volume determination 9.9 fl 6.2-12.0 [facility] Monocyte percentageOrdered B y: Audra Drake on 06-22-2024 Monocytes/100 WBC (Bld) 11.0 % High 0-10 [facility] Monocyte percentage 11.0 % High 0-10 [facility] Neutrophil percentageOrdered By: Audra Drake on 06-22-2024 Neutrophils/100 WBC (Bld) 68.8 % 47-70 [facility] Neutrophil percentage 68.8 % 47-70 [facility] Nucleated red blood cell per centageOrdered By: Audra Drake on 06-22-2024 Nucleated RBC/100 WBC (Bld) [Ratio] 0 % 0-5 [facility] Nucleated red blood cell percentage 0 % 0-5 [facility] Platelet countOrdered By: Dimitris Drake on 06-22-2024 Platelets (Bld) [#/Vol] 235 10*3/uL 150-450 [facility] Platelet count 235 K/mm3 150-450 [facility] Potassium (Unsp spec) [Mass/ Vol]Ordered By: Audra Drake on 06-22-2024 Potassium [Moles/Vol] 4.4 mmol/L 3.3-5.1 [facility] Potassium measurement (mass/volume) 4.4 mmol/L 3.3-5.1 [facility] Potassium measurement (mass/ volume)Ordered By: Audra Drake on 06-22-2024 Potassium (Unsp spec) [Mass/Vol] 4.4 mmol/L 3.3-5.1 [facility] RBC Auto (Bld) [#/Vol]Ordere d By: Audra Drake on 06-22-2024 RBC (Bld) [#/Vol] 3.56 10*6/uL Low 4.2-5.4 [facility] Automated blood erythrocyte count 3.56 M/mm3 Low 4.2-5.4 [facility] Serum creatinine measurement (mass/volume)Ordered By: Audra Drake on 06-22-2024 Creatinine [Mass/Vol] 0.78 mg/dL 0.70-1.20 [facility] Serum glucose measurement (m ass/volume)Ordered By: Audra Drake on 06-22-2024 Glucose [Mass/Vol] 91 mg/dL 70-99 [facility] Serum or plasma calcium gianluca urement (mass/volume)Ordered By: Audra Drake on 06-22-2024 Calcium [Mass/Vol] 8.6 mg/dL 7.6-11.0 [facility] Serum or plasma urea nitroge n measurement (mass/volume)Ordered By: Audra Drake on 06-22-2024 Urea nitrogen [Mass/Vol] 15 mg/dL 07-17 [facility] Sodium levelOrdered By: Cony Drake on 06-22-2024 Sodium [Moles/Vol] 138 mmol/L 133-145 [facility] Sodium level 138 mmol/L 133-145 [facility] Urea nitrogen [Mass/Vol]Orde red By: Audra Drake on 06-22-2024 Serum or plasma urea nitrogen measurement (mass/volume) 15 mg/dL - [facility] White blood cell (WBC) count Ordered By: Audra Drake on 06-22-2024 WBC (Bld) [#/Vol] 7.1 10*3/uL 4.4-11.0 [facility] White blood cell (WBC) count 7.1 K/mm3 4.4-11.0 [facility] Absolute lymphocyte countOrd ered By: Nikia Henderson on 06-15-2024 Lymphocytes Auto (Unsp spec) [#/Vol] 1.51 10*3/uL 0.83-4.51 [facility] Absolute neutrophil countOrd ered By: Nikia Henderson on 06-15-2024 Neutrophils (Bld) [#/Vol] 2.2 10*3/uL 2.0-7.7 [facility] Absolute neutrophil count 2.2 X10^3/uL 2.0-7.7 [facility] Anion gap [Moles/Vol]Ordered By: Nikia Henderson on 06-15-2024 Anion gap in Serum or Plasma 11 5- [facility] Anion gap in Serum or Plasma Ordered By: Nikia Henderson on 06-15-2024 Anion gap [Moles/Vol] 11 mmol/L - [facility] Automated lymphocyte count a s percentage of total leukocytesOrdered By: Nikia Henderson on 06-15-2024 Lymphocytes/100 WBC Auto (Unsp spec) 34.6 % 19-41 [facility] BUN/creatinine ratioOrdered By: Nikia Henderson on 06-15-2024 Urea nitrogen/Creatinine [Mass ratio] 22.9 mg/mg High 10-20 [facility] BUN/creatinine ratio 22.9 RATIO High 10-20 [facility] Basophil percentageOrdered B y: Nikia Henderson on 06-15-2024 Basophils/100 WBC (Bld) 0.5 % 0-1 [facility] Basophil percentage 0.5 % 0-1 [facility] Calcium [Mass/Vol]Ordered By : Nikia Henderson on 06-15-2024 Serum or plasma calcium measurement (mass/volume) 8.7 mg/dL 7.6-11.0 [facility] Carbon dioxide, total [Moles /volume] in Central venous bloodOrdered By: Nikia Henderson on 06-15-2024 CO2 [Moles/Vol] 20.2 mmol/L Low 21.0-32.0 [facility] Carbon dioxide, total [Moles/volume] in Central venous blood 20.2 mmol/L Low 21.0-32.0 [facility] Chloride assayOrdered By: Cecilia Henderson on 06-15-2024 Chloride [Moles/Vol] 111 mmol/L High 98-108 [facility] Chloride assay 111 mmol/L High 98-108 [facility] Creatinine [Mass/Vol]Ordered By: Nikia Henderson on 06-15-2024 Serum creatinine measurement (mass/volume) 0.65 mg/dL Low 0.70-1.20 [facility] Eosinophil percentageOrdered By: Nikia Henderson on 06-15-2024 Eosinophils/100 WBC (Bld) 2.1 % 0-5 [facility] Eosinophil percentage 2.1 % 0-5 [facility] Erythrocyte distribution wid th (RBC) [Ratio]Ordered By: Nikia Henderson on 06-15-2024 Erythrocyte distribution width ratio 14.2 % 11.6-14.6 [facility] Erythrocyte distribution width (RBC) [Entitic vol] 52.7 fL High 35.1-43.9 [facility] Erythrocyte distribution width standard deviation 52.7 fl High 35.1-43.9 [facility] Erythrocyte distribution wid th ratioOrdered By: Nikia Henderson on 06-15-2024 Erythrocyte distribution width (RBC) [Ratio] 14.2 % 11.6-14.6 [facility] Erythrocyte distribution wid th standard deviationOrdered By: Nikia Henderson on 06-15-2024 Erythrocyte distribution width (RBC) [Ratio] 52.7 fl High 35.1-43.9 [facility] GFR/1.73 sq M.predicted viji g non-blacks MDRD (S/P/Bld) [Vol rate/Area]Ordered By: Nikia Henderson on 06-15-2024 Estimated GFR (MDRD) Non-Af Amer 90 >60 [facility] Comment on above: mL/min/1.73m2 CKD-EP I Creatinine Equation (2020) Glomerular filtration rate (GFR) estimation/1.73 sq m using serum, plasma, or whole b 90 >60 [facility] Glomerular filtration rate ( GFR) estimation/1.73 sq m using serum, plasma, or whole bOrdered By: Nikia Henedrson on 06-15-2024 GFR/1.73 sq M.predicted among non-blacks MDRD (S/P/Bld) [Vol rate/Area] 90 mL/min/{1.73_m2} >60 [facility] Glucose [Mass/Vol]Ordered By : Nikia Henderson on 06-15-2024 Serum glucose measurement (mass/volume) 83 mg/dL 70-99 [facility] Hematocrit Auto (Bld) [Volum e fraction]Ordered By: Nikia Henderson on 06-15-2024 Hematocrit (Bld) [Volume fraction] 39.1 % 37-47 [facility] Automated blood hematocrit (percentage) 39.1 % 37-47 [facility] Hemoglobin measurementOrdere d By: Nikia Henderson on 06-15-2024 Hemoglobin (Bld) [Mass/Vol] 12.4 g/dL 12.0-15. 0 [facility] Hemoglobin measurement 12.4 g/dL 12.0-15.0 [facility] Immature granulocytes/100 WB C Auto (Bld)Ordered By: Nikia Henderson on 06-15-2024 Immature granulocytes/100 WBC (Bld) 0.700 % 0.0-0.9 [facility] Comment on above: IG% - Immature Granu locytes (promyelocytes, myelocytes and metamyelocytes) > 1% indicates that a LEFT SHIFT is Present. Automated immature granulocyte percentage 0.700 % 0.0-0.9 [facility] Lymphocytes Auto (Unsp spec) [#/Vol]Ordered By: Nikia Henderson on 06-15-2024 Lymphocytes (Bld) [#/Vol] 1.51 10*3/uL 0.83-4.5 1 [facility] Absolute lymphocyte count 1.51 X10^3/uL 0.83-4. 51 [facility] Lymphocytes/100 WBC Auto (Un sp spec)Ordered By: Nikia Henderson on 06-15-2024 Lymphocytes/100 WBC (Bld) 34.6 % [facility] Automated lymphocyte count as percentage of total leukocytes 34.6 % - [facility] MCV (RBC) [Entitic vol]Order ed By: Nikia Henderson on 06-15-2024 MCV (mean corpuscular volume) determination 100.8 fL High 81-99 [facility] MCV (mean corpuscular volume ) determinationOrdered By: Nikia Henderson on 06-15-2024 MCV (RBC) [Entitic vol] 100.8 fL High 81-99 [facility] Mean corpuscular hemoglobin (MCH) determinationOrdered By: Nikia Henderson on 06-15-2024 MCH (RBC) [Entitic mass] 32.0 pg 27.0-32.0 [facility] Mean corpuscular hemoglobin (MCH) determination 32.0 pg 27.0-32.0 [facility] Mean corpuscular hemoglobin concentration (MCHC) determinationOrdered By: Nikia Henderson on 06-15-2024 MCHC (RBC) [Mass/Vol] 31.7 g/dL Low 32-36 [facility] Mean corpuscular hemoglobin concentration (MCHC) determination 31.7 g/dL Low 32-36 [facility] Mean platelet volume determi nationOrdered By: Nikia Henderson on 06-15-2024 Platelet mean volume (Bld) [Entitic vol] 9.6 fL 6.2-12.0 [facility] Mean platelet volume determination 9.6 fl 6.2-12.0 [facility] Monocyte percentageOrdered B y: Nikia Henderson on 06-15-2024 Monocytes/100 WBC (Bld) 11.5 % High 0-10 [facility] Monocyte percentage 11.5 % High 0-[facility] Neutrophil percentageOrdered By: Nikia Henderson on 06-15-2024 Neutrophils/100 WBC (Bld) 50.6 % 47-70 [facility] Neutrophil percentage 50.6 % 47-70 [facility] Nucleated red blood cell per centageOrdered By: Nikia Henderson on 06-15-2024 Nucleated RBC/100 WBC (Bld) [Ratio] 0 % 0-5 [facility] Nucleated red blood cell percentage 0 % 0-5 [facility] Platelet countOrdered By: Cecilia Henderson on 06-15-2024 Platelets (Bld) [#/Vol] 215 10*3/uL 150-450 [facility] Platelet count 215 K/mm3 150-450 [facility] Potassium (Unsp spec) [Mass/ Vol]Ordered By: Nikia Henderson on 06-15-2024 Potassium [Moles/Vol] 4.7 mmol/L 3.3-5.1 [facility] Comment on above: Hemolysis present, R esults could be affected. Potassium measurement (mass/volume) 4.7 mmol/L 3.3-5.1 [facility] Potassium measurement (mass/ volume)Ordered By: Nikia Henderson on 06-15-2024 Potassium (Unsp spec) [Mass/Vol] 4.7 mmol/L 3.3-5.1 [facility] RBC Auto (Bld) [#/Vol]Ordere d By: Nikia Henderson on 06-15-2024 RBC (Bld) [#/Vol] 3.88 10*6/uL Low 4.2-5.4 [facility] Automated blood erythrocyte count 3.88 M/mm3 Low 4.2-5.4 [facility] Serum creatinine measurement (mass/volume)Ordered By: Nikia Henderson on 06-15-2024 Creatinine [Mass/Vol] 0.65 mg/dL Low 0.70-1.20 [facility] Serum glucose measurement (m ass/volume)Ordered By: Nikia Henderson on 06-15-2024 Glucose [Mass/Vol] 83 mg/dL 70-99 [facility] Serum or plasma calcium gianluca urement (mass/volume)Ordered By: Nikia Henderson on 06-15-2024 Calcium [Mass/Vol] 8.7 mg/dL 7.6-11.0 [facility] Serum or plasma urea nitroge n measurement (mass/volume)Ordered By: Nikia Henderson on 06-15-2024 Urea nitrogen [Mass/Vol] 15 mg/dL - [facility] Sodium levelOrdered By: Catalina Henderson on 06-15-2024 Sodium [Moles/Vol] 142 mmol/L 133-145 [facility] Sodium level 142 mmol/L 133-145 [facility] Urea nitrogen [Mass/Vol]Orde red By: Nikia Henderson on 06-15-2024 Serum or plasma urea nitrogen measurement (mass/volume) 15 mg/dL - [facility] White blood cell (WBC) count Ordered By: Nikia Henderson on 06-15-2024 WBC (Bld) [#/Vol] 4.4 10*3/uL 4.4-11.0 [facility] White blood cell (WBC) count 4.4 K/mm3 4.4-11.0 [facility] Absolute lymphocyte countOrd ered By: Nikia Henderson on 06-08-2024 Lymphocytes Auto (Unsp spec) [#/Vol] 1.41 10*3/uL 0.83-4.51 [facility] Absolute neutrophil countOrd ered By: Nikia Henderson on 06-08-2024 Neutrophils (Bld) [#/Vol] 3.7 10*3/uL 2.0-7.7 [facility] Absolute neutrophil count 3.7 X10^3/uL 2.0-7.7 [facility] Anion gap [Moles/Vol]Ordered By: Nikia Henderson on 06-08-2024 Anion gap in Serum or Plasma 10 5-15 [facility] Anion gap in Serum or Plasma Ordered By: Nikia Henderson on 06-08-2024 Anion gap [Moles/Vol] 10 mmol/L 5-15 [facility] Automated lymphocyte count a s percentage of total leukocytesOrdered By: Nikia Henderson on 06-08-2024 Lymphocytes/100 WBC Auto (Unsp spec) 23.7 % 19-41 [facility] BUN/creatinine ratioOrdered By: Nikia Henderson on 06-08-2024 Urea nitrogen/Creatinine [Mass ratio] 29.4 mg/mg High 10-20 [facility] BUN/creatinine ratio 29.4 RATIO High 10-20 [facility] Basophil percentageOrdered B y: Nikia Henderson on 06-08-2024 Basophils/100 WBC (Bld) 0.3 % 0-1 [facility] Basophil percentage 0.3 % 0-1 [facility] Calcium [Mass/Vol]Ordered By : Nikia Henderson on 06-08-2024 Serum or plasma calcium measurement (mass/volume) 8.9 mg/dL 7.6-11.0 [facility] Carbon dioxide, total [Moles /volume] in Central venous bloodOrdered By: Nikia Henderson on 06-08-2024 CO2 [Moles/Vol] 21.5 mmol/L 21.0-32.0 [facility] Carbon dioxide, total [Moles/volume] in Central venous blood 21.5 mmol/L 21.0-32.0 [facility] Chloride assayOrdered By: Cecilia Henderson on 06-08-2024 Chloride [Moles/Vol] 110 mmol/L High 98-108 [facility] Chloride assay 110 mmol/L High 98-108 [facility] Creatinine [Mass/Vol]Ordered By: Nikia Henderson on 06-08-2024 Serum creatinine measurement (mass/volume) 0.68 mg/dL Low 0.70-1.20 [facility] Eosinophil percentageOrdered By: Nikia Henderson on 06-08-2024 Eosinophils/100 WBC (Bld) 3.2 % 0-5 [facility] Eosinophil percentage 3.2 % 0-5 [facility] Erythrocyte distribution wid th (RBC) [Ratio]Ordered By: Nikia Henderson on 06-08-2024 Erythrocyte distribution width ratio 14.5 % 11.6-14.6 [facility] Erythrocyte distribution width (RBC) [Entitic vol] 53.2 fL High 35.1-43.9 [facility] Erythrocyte distribution width standard deviation 53.2 fl High 35.1-43.9 [facility] Erythrocyte distribution wid th ratioOrdered By: Nikia Henderson on 06-08-2024 Erythrocyte distribution width (RBC) [Ratio] 14.5 % 11.6-14.6 [facility] Erythrocyte distribution wid th standard deviationOrdered By: Nikia Henderson on 06-08-2024 Erythrocyte distribution width (RBC) [Ratio] 53.2 fl High 35.1-43.9 [facility] GFR/1.73 sq M.predicted viji g non-blacks MDRD (S/P/Bld) [Vol rate/Area]Ordered By: Nikia Henderson on 06-08-2024 Estimated GFR (MDRD) Non-Af Amer 89 >60 [facility] Comment on above: mL/min/1.73m2 CKD-EP I Creatinine Equation (2020) Glomerular filtration rate (GFR) estimation/1.73 sq m using serum, plasma, or whole b 89 >60 [facility] Glomerular filtration rate ( GFR) estimation/1.73 sq m using serum, plasma, or whole bOrdered By: Nikia Henderson on 06-08-2024 GFR/1.73 sq M.predicted among non-blacks MDRD (S/P/Bld) [Vol rate/Area] 89 mL/min/{1.73_m2} >60 [facility] Glucose [Mass/Vol]Ordered By : Nikia Henderson on 06-08-2024 Serum glucose measurement (mass/volume) 85 mg/dL 70-99 [facility] Hematocrit Auto (Bld) [Volum e fraction]Ordered By: Nikia Henderson on 06-08-2024 Hematocrit (Bld) [Volume fraction] 35.9 % Low 37-47 [facility] Automated blood hematocrit (percentage) 35.9 % Low 37-47 [facility] Hemoglobin measurementOrdere d By: Nikia Henderson on 06-08-2024 Hemoglobin (Bld) [Mass/Vol] 11.5 g/dL Low 12.0-15. 0 [facility] Hemoglobin measurement 11.5 g/dL Low 12.0-15.0 [facility] Immature granulocytes/100 WB C Auto (Bld)Ordered By: Nikia Henderson on 06-08-2024 Immature granulocytes/100 WBC (Bld) 0.300 % 0.0-0.9 [facility] [facility] Comment on above: IG% - Immature Granu locytes (promyelocytes, myelocytes and metamyelocytes) > 1% indicates that a LEFT SHIFT is Present. Automated immature granulocyte percentage 0.300 % 0.0-0.9 [facility] Lymphocytes Auto (Unsp spec) [#/Vol]Ordered By: Nikia Henderson on 06-08-2024 Lymphocytes (Bld) [#/Vol] 1.41 10*3/uL 0.83-4.5 1 [facility] Absolute lymphocyte count 1.41 X10^3/uL 0.83-4. 51 [facility] Lymphocytes/100 WBC Auto (Un sp spec)Ordered By: Nikia Henderson on 06-08-2024 Lymphocytes/100 WBC (Bld) 23.7 % [facility] Automated lymphocyte count as percentage of total leukocytes 23.7 % [facility] MCV (RBC) [Entitic vol]Order ed By: Nikia Henderson on 06-08-2024 MCV (mean corpuscular volume) determination 100.3 fL High 81-99 [facility] MCV (mean corpuscular volume ) determinationOrdered By: Nikia Henderson on 03-11-2025 MCV (RBC) [Entitic vol] 100.3 fL High 81-99 [facility] Mean corpuscular hemoglobin (MCH) determinationOrdered By: Nikia Henderson on 06-08-2024 MCH (RBC) [Entitic mass] 32.1 pg High 27.0-32.0 [facility] Mean corpuscular hemoglobin (MCH) determination 32.1 pg High 27.0-32.0 [facility] Mean corpuscular hemoglobin concentration (MCHC) determinationOrdered By: Nikia Henderson on 06-08-2024 MCHC (RBC) [Mass/Vol] 32.0 g/dL - [facility] Mean corpuscular hemoglobin concentration (MCHC) determination 32.0 g/dL -36 [facility] Mean platelet volume determi nationOrdered By: Nikia Henderson on 06-08-2024 Platelet mean volume (Bld) [Entitic vol] 9.4 fL 6.2-12.0 [facility] Mean platelet volume determination 9.4 fl 6.2-12.0 [facility] Monocyte percentageOrdered B y: Nikia Henderson on 06-08-2024 Monocytes/100 WBC (Bld) 9.4 % 0-10 [facility] Monocyte percentage 9.4 % 0-10 [facility] Neutrophil percentageOrdered By: Nikia Henderson on 06-08-2024 Neutrophils/100 WBC (Bld) 63.1 % 47-70 [facility] Neutrophil percentage 63.1 % 47-70 [facility] Nucleated red blood cell per centageOrdered By: Nikia Henderson on 06-08-2024 Nucleated RBC/100 WBC (Bld) [Ratio] 0 % 0-5 [facility] Nucleated red blood cell percentage 0 % 0-5 [facility] Platelet countOrdered By: Cecilia Henderson on 06-08-2024 Platelets (Bld) [#/Vol] 244 10*3/uL 150-450 [facility] Platelet count 244 K/mm3 150-450 [facility] Potassium (Unsp spec) [Mass/ Vol]Ordered By: Nikia Henderson on 06-08-2024 Potassium [Moles/Vol] 4.3 mmol/L 3.3-5.1 [facility] Potassium measurement (mass/volume) 4.3 mmol/L 3.3-5.1 [facility] Potassium measurement (mass/ volume)Ordered By: Nikia Henderson on 06-08-2024 Potassium (Unsp spec) [Mass/Vol] 4.3 mmol/L 3.3-5.1 [facility] RBC Auto (Bld) [#/Vol]Ordere d By: Nikia Henderson on 06-08-2024 RBC (Bld) [#/Vol] 3.58 10*6/uL Low 4.2-5.4 [facility] Automated blood erythrocyte count 3.58 M/mm3 Low 4.2-5.4 [facility] Serum creatinine measurement (mass/volume)Ordered By: Nikia Henderson on 06-08-2024 Creatinine [Mass/Vol] 0.68 mg/dL Low 0.70-1.20 [facility] Serum glucose measurement (m ass/volume)Ordered By: Nikia Henderson on 06-08-2024 Glucose [Mass/Vol] 85 mg/dL 70-99 [facility] Serum or plasma calcium gianluca urement (mass/volume)Ordered By: Nikia Henderson on 06-08-2024 Calcium [Mass/Vol] 8.9 mg/dL 7.6-11.0 [facility] Serum or plasma urea nitroge n measurement (mass/volume)Ordered By: Nikia Henderson on 06-08-2024 Urea nitrogen [Mass/Vol] 20 mg/dL High 07-17 [facility] Sodium levelOrdered By: Catalina Henderson on 06-08-2024 Sodium [Moles/Vol] 141 mmol/L 133-145 [facility] Sodium level 141 mmol/L 133-145 [facility] Urea nitrogen [Mass/Vol]Orde red By: Nikia Henderson on 06-08-2024 Serum or plasma urea nitrogen measurement (mass/volume) 20 mg/dL High - [facility] White blood cell (WBC) count Ordered By: Nikia Henderson on 06-08-2024 WBC (Bld) [#/Vol] 5.9 10*3/uL 4.4-11.0 [facility] White blood cell (WBC) count 5.9 K/mm3 4.4-11.0 [facility] Absolute lymphocyte countOrd ered By: Nikia Henderson on 06-01-2024 Lymphocytes Auto (Unsp spec) [#/Vol] 1.46 10*3/uL 0.83-4.51 [facility] Absolute neutrophil countOrd ered By: Nikia Henderson on 06-01-2024 Neutrophils (Bld) [#/Vol] 5.2 10*3/uL 2.0-7.7 [facility] Absolute neutrophil count 5.2 X10^3/uL 2.0-7.7 [facility] Anion gap [Moles/Vol]Ordered By: Nikia Henderson on 06-01-2024 Anion gap in Serum or Plasma 11 5-15 [facility] Anion gap in Serum or Plasma Ordered By: Nikia Henderson on 06-01-2024 Anion gap [Moles/Vol] 11 mmol/L 5-15 [facility] Automated lymphocyte count a s percentage of total leukocytesOrdered By: Nikia Henderson on 06-01-2024 Lymphocytes/100 WBC Auto (Unsp spec) 19.4 % 19-41 [facility] BUN/creatinine ratioOrdered By: Nikia Henderson on 06-01-2024 Urea nitrogen/Creatinine [Mass ratio] 30.2 mg/mg High 10-20 [facility] BUN/creatinine ratio 30.2 RATIO High 10-20 [facility] Basophil percentageOrdered B y: Nikia Henderson on 06-01-2024 Basophils/100 WBC (Bld) 0.7 % 0-1 [facility] Basophil percentage 0.7 % 0-1 [facility] Calcium [Mass/Vol]Ordered By : Nikia Henderson on 06-01-2024 Serum or plasma calcium measurement (mass/volume) 9.0 mg/dL 7.6-11.0 [facility] Carbon dioxide, total [Moles /volume] in Central venous bloodOrdered By: Nikia Henderson on 06-01-2024 CO2 [Moles/Vol] 20.7 mmol/L Low 21.0-32.0 [facility] Carbon dioxide, total [Moles/volume] in Central venous blood 20.7 mmol/L Low 21.0-32.0 [facility] Chloride assayOrdered By: Cecilia Henderson on 06-01-2024 Chloride [Moles/Vol] 110 mmol/L High 98-108 [facility] Chloride assay 110 mmol/L High 98-108 [facility] Creatinine [Mass/Vol]Ordered By: Nikia Henderson on 06-01-2024 Serum creatinine measurement (mass/volume) 0.72 mg/dL 0.70-1.20 [facility] Eosinophil percentageOrdered By: laura Henderson on 06-01-2024 Eosinophils/100 WBC (Bld) 1.6 % 0-5 [facility] Eosinophil percentage 1.6 % 0-5 [facility] Erythrocyte distribution wid th (RBC) [Ratio]Ordered By: Nikia Henderson on 06-01-2024 Erythrocyte distribution width ratio 14.1 % 11.6-14.6 [facility] Erythrocyte distribution width (RBC) [Entitic vol] 51.8 fL High 35.1-43.9 [facility] Erythrocyte distribution width standard deviation 51.8 fl High 35.1-43.9 [facility] Erythrocyte distribution wid th ratioOrdered By: Catalinalake toxawayheladio Henderson on 06-01-2024 Erythrocyte distribution width (RBC) [Ratio] 14.1 % 11.6-14.6 [facility] Erythrocyte distribution wid th standard deviationOrdered By: laura Henderson on 06-01-2024 Erythrocyte distribution width (RBC) [Ratio] 51.8 fl High 35.1-43.9 [facility] GFR/1.73 sq M.predicted viji g non-blacks MDRD (S/P/Bld) [Vol rate/Area]Ordered By: Nikia Henderson on 06-01-2024 Estimated GFR (MDRD) Non-Af Amer 86 >60 [facility] Comment on above: mL/min/1.73m2 CKD-EP I Creatinine Equation (2020) Glomerular filtration rate (GFR) estimation/1.73 sq m using serum, plasma, or whole b 86 >60 [facility] Glomerular filtration rate ( GFR) estimation/1.73 sq m using serum, plasma, or whole bOrdered By: Nikia Henderson on 06-01-2024 GFR/1.73 sq M.predicted among non-blacks MDRD (S/P/Bld) [Vol rate/Area] 86 mL/min/{1.73_m2} >60 [facility] Glucose [Mass/Vol]Ordered By : Nikia Henderson on 06-01-2024 Serum glucose measurement (mass/volume) 94 mg/dL 70-99 [facility] Hematocrit Auto (Bld) [Volum e fraction]Ordered By: Nikia Henderson on 06-01-2024 Hematocrit (Bld) [Volume fraction] 36.4 % Low 37-47 [facility] Automated blood hematocrit (percentage) 36.4 % Low 37-47 [facility] Hemoglobin measurementOrdere d By: Nikia Henderson on 06-01-2024 Hemoglobin (Bld) [Mass/Vol] 11.7 g/dL Low 12.0-15. 0 [facility] Hemoglobin measurement 11.7 g/dL Low 12.0-15.0 [facility] Immature granulocytes/100 WB C Auto (Bld)Ordered By: Nikia Henderson on 06-01-2024 Immature granulocytes/100 WBC (Bld) 0.400 % 0.0-0.9 [facility] Comment on above: IG% - Immature Granu locytes (promyelocytes, myelocytes and metamyelocytes) > 1% indicates that a LEFT SHIFT is Present. Automated immature granulocyte percentage 0.400 % 0.0-0.9 [facility] Lymphocytes Auto (Unsp spec) [#/Vol]Ordered By: Nikia Henderson on 06-01-2024 Lymphocytes (Bld) [#/Vol] 1.46 10*3/uL 0.83-4.5 1 [facility] Absolute lymphocyte count 1.46 X10^3/uL 0.83-4. 51 [facility] Lymphocytes/100 WBC Auto (Un sp spec)Ordered By: Nikia Henderson on 06-01-2024 Lymphocytes/100 WBC (Bld) 19.4 % - [facility] Automated lymphocyte count as percentage of total leukocytes 19.4 % -41 [facility] MCV (RBC) [Entitic vol]Order ed By: Nikia Henderson on 06-01-2024 MCV (mean corpuscular volume) determination 100.6 fL High 81-99 [facility] MCV (mean corpuscular volume ) determinationOrdered By: Nikia Henderson on 06-01-2024 MCV (RBC) [Entitic vol] 100.6 fL High 81-99 [facility] Mean corpuscular hemoglobin (MCH) determinationOrdered By: Nikia Henderson on 06-01-2024 MCH (RBC) [Entitic mass] 32.3 pg High 27.0-32.0 [facility] Mean corpuscular hemoglobin (MCH) determination 32.3 pg High 27.0-32.0 [facility] Mean corpuscular hemoglobin concentration (MCHC) determinationOrdered By: Nikia Henderson on 06-01-2024 MCHC (RBC) [Mass/Vol] 32.1 g/dL 32-36 [facility] Mean corpuscular hemoglobin concentration (MCHC) determination 32.1 g/dL -36 [facility] Mean platelet volume determi nationOrdered By: Nikia Henderson on 06-01-2024 Platelet mean volume (Bld) [Entitic vol] 9.8 fL 6.2-12.0 [facility] Mean platelet volume determination 9.8 fl 6.2-12.0 [facility] Monocyte percentageOrdered B y: Nikia Henderson on 06-01-2024 Monocytes/100 WBC (Bld) 8.5 % 0-10 [facility] Monocyte percentage 8.5 % 0-10 [facility] Neutrophil percentageOrdered By: Nikia Henderson on 06-01-2024 Neutrophils/100 WBC (Bld) 69.4 % 47-70 [facility] Neutrophil percentage 69.4 % 47-70 [facility] Nucleated red blood cell per centageOrdered By: Nikia Henderson on 06-01-2024 Nucleated RBC/100 WBC (Bld) [Ratio] 0 % 0-5 [facility] Nucleated red blood cell percentage 0 % 0-5 [facility] Platelet countOrdered By: Cecilia Henderson on 06-01-2024 Platelets (Bld) [#/Vol] 234 10*3/uL 150-450 [facility] Platelet count 234 K/mm3 150-450 [facility] Potassium (Unsp spec) [Mass/ Vol]Ordered By: Nikia Henderson on 06-01-2024 Potassium [Moles/Vol] 4.4 mmol/L 3.3-5.1 [facility] Potassium measurement (mass/volume) 4.4 mmol/L 3.3-5.1 [facility] Potassium measurement (mass/ volume)Ordered By: Nikia Henderson on 06-01-2024 Potassium (Unsp spec) [Mass/Vol] 4.4 mmol/L 3.3-5.1 [facility] RBC Auto (Bld) [#/Vol]Ordere d By: Nikia Henderson on 06-01-2024 RBC (Bld) [#/Vol] 3.62 10*6/uL Low 4.2-5.4 [facility] Automated blood erythrocyte count 3.62 M/mm3 Low 4.2-5.4 [facility] Serum creatinine measurement (mass/volume)Ordered By: Nikia Henderson on 06-01-2024 Creatinine [Mass/Vol] 0.72 mg/dL 0.70-1.20 [facility] Serum glucose measurement (m ass/volume)Ordered By: Nikia Henderson on 06-01-2024 Glucose [Mass/Vol] 94 mg/dL 70-99 [facility] Serum or plasma calcium gianluca urement (mass/volume)Ordered By: Nikia Henderson on 06-01-2024 Calcium [Mass/Vol] 9.0 mg/dL 7.6-11.0 [facility] Serum or plasma urea nitroge n measurement (mass/volume)Ordered By: Nikia Henderson on 06-01-2024 Urea nitrogen [Mass/Vol] 22 mg/dL High 4-19 [facility] Sodium levelOrdered By: Catalina Henderson on 06-01-2024 Sodium [Moles/Vol] 142 mmol/L 133-145 [facility] Sodium level 142 mmol/L 133-145 [facility] Urea nitrogen [Mass/Vol]Orde red By: Nikia Henderson on 06-01-2024 Serum or plasma urea nitrogen measurement (mass/volume) 22 mg/dL High 07-17 [facility] White blood cell (WBC) count Ordered By: Nikia Henderson on 06-01-2024 WBC (Bld) [#/Vol] 7.5 10*3/uL 4.4-11.0 [facility] White blood cell (WBC) count 7.5 K/mm3 4.4-11.0 [facility] Basic Metabolic Profile (BMP )on 05-28-2024 BUN Normal 7-18 [facility] Comment on above: Result Comment: Canc elled via OM: Order cancelled - Patient discharged Performed By: #### L 500.2500, L100.0100 ####[facility] [address] [place], [address] BUN/CRE Normal 10-20 [facility] Comment on above: Result Comment: Canc elled via OM: Order cancelled - Patient discharged Performed By: #### L 500.2500, L100.0100 ####[facility] [address] [place], [address] CA,Total Normal 8.5-10.1 [facility] Comment on above: Result Comment: Canc elled via OM: Order cancelled - Patient discharged Performed By: #### L 500.2500, L100.0100 ####[facility] [address] [place], [address] CL Normal 98-107 [facility] Comment on above: Result Comment: Canc elled via OM: Order cancelled - Patient discharged Performed By: #### L 500.2500, L100.0100 ####[facility] [address] [place], [address] CO2 Normal 21.0-32.0 [facility] Comment on above: Result Comment: Canc elled via OM: Order cancelled - Patient discharged Performed By: #### L 500.2500, L100.0100 ####[facility] [address], [address] CREAT,SERUM Normal 0.55-1.02 [facility] Comment on above: Result Comment: Canc elled via OM: Order cancelled - Patient discharged Performed By: #### L 500.2500, L100.0100 ####[facility] [address] [place], [address] EST GFR Normal >60 [facility] Comment on above: Result Comment: Canc elled via OM: Order cancelled - Patient discharged Performed By: #### L 500.2500, L100.0100 ####[facility] [address] [place], [address] EST GFR - AA Normal >60 [facility] Comment on above: Result Comment: Canc elled via OM: Order cancelled - Patient discharged Performed By: #### L 500.2500, L100.0100 ####[facility] [address] [place], [address] GAP Normal 5-15 [facility] Comment on above: Result Comment: Canc elled via OM: Order cancelled - Patient discharged Performed By: #### L 500.2500, L100.0100 ####[facility] [address] [place], [address] GLU Normal 74-106 [facility] Comment on above: Result Comment: Canc elled via OM: Order cancelled - Patient discharged Performed By: #### L 500.2500, L100.0100 ####[facility] [address] [place], [address] Potassium Normal 3.5-5.1 [facility] Comment on above: Result Comment: Canc elled via OM: Order cancelled - Patient discharged Performed By: #### L 500.2500, L100.0100 ####[facility] [address] [place], [address] Basic Metabolic Profile (BMP) Normal 136-145 [facility] Comment on above: Result Comment: Canc elled via OM: Order cancelled - Patient discharged Performed By: #### L 500.2500, L100.0100 ####[facility] [address] [place], [address] CBC W/Diff, Automatedon 05-02 Absolute Neut Normal 2.0-7.7 [facility] Comment on above: Result Comment: Canc elled via OM: Order cancelled - Patient discharged Performed By: #### L 500.2500, L100.0100 ####[facility] [address] [place], [address] HCT Normal 37-47 [facility] Comment on above: Result Comment: Canc elled via OM: Order cancelled - Patient discharged Performed By: #### L 500.2500, L100.0100 ####[facility] [address] [place], [address] HGB Normal 12.0-15.0 [facility] Comment on above: Result Comment: Canc elled via OM: Order cancelled - Patient discharged Performed By: #### L 500.2500, L100.0100 ####[facility] [address] [place], [address] MCH Normal 27.0-32.0 [facility] Comment on above: Result Comment: Canc elled via OM: Order cancelled - Patient discharged Performed By: #### L 500.2500, L100.0100 ####[facility] [address] [place], [address] MCHC Normal 32-36 [facility] Comment on above: Result Comment: Canc elled via OM: Order cancelled - Patient discharged Performed By: #### L 500.2500, L100.0100 ####[facility] [address] [place], [address] MCV Normal 81-99 [facility] Comment on above: Result Comment: Canc elled via OM: Order cancelled - Patient discharged Performed By: #### L 500.2500, L100.0100 ####[facility] [address] [place], [address] NEUT% Normal 47-70 [facility] Comment on above: Result Comment: Canc elled via OM: Order cancelled - Patient discharged Performed By: #### L 500.2500, L100.0100 ####[facility] [address] [place], [address] PLT Normal 150-450 [facility] Comment on above: Result Comment: Canc elled via OM: Order cancelled - Patient discharged Performed By: #### L 500.2500, L100.0100 ####[facility] [address] [place], [address] RBC Normal 4.2-5.4 [facility] Comment on above: Result Comment: Canc elled via OM: Order cancelled - Patient discharged Performed By: #### L 500.2500, L100.0100 ####[facility] [address] [place], [address] RDW CV Normal 11.6-14.6 [facility] Comment on above: Result Comment: Canc elled via OM: Order cancelled - Patient discharged Performed By: #### L 500.2500, L100.0100 ####[facility] [address] [place], [address] RDW SD Normal 35.1-43.9 [facility] Comment on above: Result Comment: Canc elled via OM: Order cancelled - Patient discharged Performed By: #### L 500.2500, L100.0100 ####[facility] [address] [place], [address] WBC Normal 4.4-11.0 [facility] Comment on above: Result Comment: Canc elled via OM: Order cancelled - Patient discharged Performed By: #### L 500.2500, L100.0100 ####[facility] [address] [place], [address] Absolute lymphocyte countOrd ered By: Michael Snowden on 05-21-2024 Lymphocytes Auto (Unsp spec) [#/Vol] 1.68 10*3/uL 0.83-4.51 [facility] Absolute neutrophil countOrd ered By: [facility] Neutrophils (Bld) [#/Vol] 6.3 10*3/uL 2.0-7.7 [facility] Absolute neutrophil count 6.3 X10^3/uL 2.0-7.7 [facility] Automated lymphocyte count a s percentage of total leukocytesOrdered By: Michael Snowden on 05-21-2024 Lymphocytes/100 WBC Auto (Unsp spec) 18.3 % Low 19-41 [facility] Basic Metabolic Profile (BMP )on 05-21-2024 BUN/CRE 39.8 RATIO High 10-20 [facility] Comment on above: Performed By: #### L 500.2500, L100.0100 ####[facility] [address] [place], [address] CA,Total 8.9 mg/dL Normal 8.5-10.1 [facility] Comment on above: Performed By: #### L 500.2500, L100.0100 ####[facility] [address] [place], [address] Chloride [Moles/Vol] 109 mmol/L High 98-107 [facility] Comment on above: Performed By: #### L 500.2500, L100.0100 ####[facility] [address] [place], [address] CO2 [Moles/Vol] 22.0 mmol/L Normal 21.0-32.0 [facility] Comment on above: Performed By: #### L 500.2500, L100.0100 ####[facility] [address] [place], [address] Creatinine [Mass/Vol] 0.80 mg/dL Normal 0.55-1.02 [facility] Comment on above: Result Comment: The validity of the calculated GFR GFRAA in patients over70 years has not been determined. Clinical correlation isessential. Performed By: #### L 500.2500, L100.0100 ####[facility] [address] [place], [address] ECRCL 50.86 ml/min Normal [facility] Comment on above: Performed By: #### L 500.2500, L100.0100 ####[facility] [address] [place], [address] EST GFR - AA 89 mL/min Normal >60 [facility] Comment on above: Result Comment: Afri can Cymraes GFR Calc Performed By: #### L 500.2500, L100.0100 ####[facility] [address] [place], [place], [address] GAP 9 Normal 5-15 [facility] Comment on above: Performed By: #### L 500.2500, L100.0100 ####[facility] [address] [place], [address] GFR/1.73 sq M.predicted among non-blacks MDRD (S/P/Bld) [Vol rate/Area] 73 mL/min/{1.73_m2} Normal >60 [facility] Comment on above: Result Comment: Non- GFR Calc Performed By: #### L 500.2500, L100.0100 ####[facility] [address] [place], [address] Glucose [Mass/Vol] 85 mg/dL Normal 74-106 [facility] Comment on above: Performed By: #### L 500.2500, L100.0100 ####[facility] [address] [place], [address] Potassium [Moles/Vol] 5.1 mmol/L Normal 3.5-5.1 [facility] Comment on above: Performed By: #### L 500.2500, L100.0100 ####[facility] [address] [place], [address] Sodium [Moles/Vol] 140 mmol/L Normal 136-145 [facility] Comment on above: Performed By: #### L 500.2500, L100.0100 ####[facility] [address] [place], [address] Urea nitrogen [Mass/Vol] 32 mg/dL High 10-15 [facility] Comment on above: Performed By: #### L 500.2500, L100.0100 ####[facility] [address] [place], [address] Basophil percentageOrdered B y: Michael Snowden on 05-21-2024 Basophils/100 WBC (Bld) 0.1 % 0-1 [facility] Basophil percentage 0.1 % 0-1 [facility] Blood urea nitrogen (BUN)/cr eatinine ratioOrdered By: Michael Snowden on 05-21-2024 Urea nitrogen/Creatinine [Mass ratio] 39.8 mg/mg High 01-17 [facility] Blood urea nitrogen (BUN)/creatinine ratio 39.8 RATIO High 01-17 [facility] CBC W/Diff, Automatedon - Absolute Lymph 1.68 X10 3/uL Normal 0.83-4.51 [facility] Comment on above: Performed By: #### L 500.2500, L100.0100 ####[facility] [address] [place], [address] Absolute Neut 6.3 X10 3/uL Normal 2.0-7.7 [facility] Comment on above: Performed By: #### L 500.2500, L100.0100 ####[facility] [address] [place], [address] Basophils/100 WBC (Bld) 0.1 % Normal 0-1 [facility] Comment on above: Performed By: #### L 500.2500, L100.0100 ####[facility] [address] [place], [address] Eosinophils/100 WBC (Bld) 0.4 % Normal 0-5 [facility] Comment on above: Performed By: #### L 500.2500, L100.0100 ####[facility] [address] [place], [address] Erythrocyte distribution width (RBC) [Ratio] 14.3 % Normal 11.6-14.6 [facility] Comment on above: Performed By: #### L 500.2500, L100.0100 ####[facility] [address] [place], [address] Hematocrit (Bld) [Volume fraction] 34.3 % Low 37-47 [facility] Comment on above: Performed By: #### L 500.2500, L100.0100 ####[facility] [address] [place], [address] Hemoglobin (Bld) [Mass/Vol] 11.0 g/dL Low 12.0-15. 0 [facility] Comment on above: Performed By: #### L 500.2500, L100.0100 ####[facility] [address] [place], [address] IG% 2.600 High 0.0-0.9 [facility] Comment on above: Result Comment: IG% - Immature Granulocytes (promyelocytes, myelocytes andmetamyelocytes) > 1% indicates that a LEFT SHIFT is Present. Performed By: #### L 500.2500, L100.0100 ####[facility] [address] [place], [address] Lymphocytes/100 WBC (Bld) 18.3 % Low 19-41 [facility] Comment on above: Performed By: #### L 500.2500, L100.0100 ####[facility] [address] [place], [address] MCH (RBC) [Entitic mass] 31.7 pg Normal 27.0-32.0 [facility] Comment on above: Performed By: #### L 500.2500, L100.0100 ####[facility] [address] [place], [address] MCHC (RBC) [Mass/Vol] 32.1 g/dL Normal 32-36 [facility] Comment on above: Performed By: #### L 500.2500, L100.0100 ####[facility] [address] [place], [address] MCV (RBC) [Entitic vol] 98.8 fL Normal 81-99 [facility] Comment on above: Performed By: #### L 500.2500, L100.0100 ####[facility] [address] [place], [address] Monocytes/100 WBC (Bld) 9.6 % Normal 0-10 [facility] Comment on above: Performed By: #### L 500.2500, L100.0100 ####[facility] [address], [address] Neutrophils/100 WBC (Bld) 69.0 % Normal 47-70 [facility] Comment on above: Performed By: #### L 500.2500, L100.0100 ####[facility] [address] [place], [address] Nucleated RBC (Bld) [#/Vol] 0 10*3/uL Normal 0-5 [facility] Comment on above: Performed By: #### L 500.2500, L100.0100 ####[facility] [address] [place], [address] Platelet mean volume (Bld) [Entitic vol] 8.9 fL Normal 6.2-12.0 [facility] Comment on above: Performed By: #### L 500.2500, L100.0100 ####[facility] [address] [place], [address] Platelets (Bld) [#/Vol] 280 10*3/uL Normal 150-450 [facility] Comment on above: Performed By: #### L 500.2500, L100.0100 ####[facility] [address] [place], [address] RBC (Bld) [#/Vol] 3.47 10*6/uL Low 4.2-5.4 [facility] Comment on above: Performed By: #### L 500.2500, L100.0100 ####[facility] [address] [place], [address] RDW SD 52.0 fl High 35.1-43.9 [facility] Comment on above: Performed By: #### L 500.2500, L100.0100 ####[facility] [address] [place], [address] WBC (Bld) [#/Vol] 9.2 10*3/uL Normal 4.4-11.0 [facility] Comment on above: Performed By: #### L 500.2500, L100.0100 ####[facility] [address] [place], [address] Calcium [Mass/Vol]Ordered By : Michael Snowden on 05-21-2024 Serum or plasma calcium measurement (mass/volume) 8.9 mg/dL 8.5-10.1 [facility] Carbon dioxide measurementOr dered By: Michael Snowden on 05-21-2024 CO2 [Moles/Vol] 22.0 mmol/L 21.0-32.0 [facility] Carbon dioxide measurement 22.0 mmol/L 21.0-32. 0 [facility] Chloride measurementOrdered By: Michael Snowden on 05-21-2024 Chloride [Moles/Vol] 109 mmol/L High 98-107 [facility] Chloride measurement 109 mmol/L High 98-107 [facility] Creatinine [Mass/Vol]Ordered By: Michael Snowden on 05-21-2024 Serum or plasma creatinine measurement (mass/volume) 0.80 mg/dL 0.55-1.02 [facility] Eosinophil percentageOrdered By: Michael Snowden 05-21-2024 Eosinophils/100 WBC (Bld) 0.4 % 0-5 [facility] Eosinophil percentage 0.4 % 0-5 [facility] Erythrocyte distribution wid th (RBC) [Ratio]Ordered By: Michael Snowden 05-21-2024 Erythrocyte distribution width ratio 14.3 % 11.6-14.6 [facility] Erythrocyte distribution width (RBC) [Entitic vol] 52.0 fL High 35.1-43.9 [facility] Erythrocyte distribution width standard deviation 52.0 fl High 35.1-43.9 [facility] Erythrocyte distribution wid th ratioOrdered By: Michael Snowden 05-21-2024 Erythrocyte distribution width (RBC) [Ratio] 14.3 % 11.6-14.6 [facility] Erythrocyte distribution wid th standard deviationOrdered By: Michael Snowden 05-21-2024 Erythrocyte distribution width (RBC) [Ratio] 52.0 fl High 35.1-43.9 [facility] Estimated glomerular filtrat ion rate (GFR) AmericanOrdered By: Michael Snowden on 05-21-2024 Estimated GFR (MDRD) Amer 89 mL/min >60 [facility] Comment on above: GFR Calc Estimated glomerular filtration rate (GFR) 89 mL/min >60 [facility] Estimation of creatinine bharat aranceOrdered By: Michael Snowden on 05-21-2024 Estimated Creatinine Clearance Calc 50.86 ml/min [facility] Estimation of creatinine clearance 50.86 ml/min [facility] Glomerular filtration rate ( GFR) estimationOrdered By: Michael Snowden on 05-21-2024 Estimated GFR (MDRD) Non-Af Amer 73 mL/min >60 [facility] Comment on above: Non- GFR Calc GFR/1.73 sq M.predicted among non-blacks MDRD (S/P/Bld) [Vol rate/Area] 73 mL/min/{1.73_m2} >60 [facility] Glomerular filtration rate (GFR) estimation 73 mL/min >60 [facility] Glucose measurementOrdered B y: Michael Snowden on 05-21-2024 Glucose [Mass/Vol] 85 mg/dL 74-106 [facility] Glucose measurement 85 mg/dL 74-106 [facility] Hematocrit Auto (Bld) [Volum e fraction]Ordered By: Michael Snowden on 05-21-2024 Hematocrit (Bld) [Volume fraction] 34.3 % Low 37-47 [facility] Automated blood hematocrit (percentage) 34.3 % Low 37-47 [facility] Hemoglobin measurementOrdere d By: Michael Snowden 05-21-2024 Hemoglobin (Bld) [Mass/Vol] 11.0 g/dL Low 12.0-15. 0 [facility] Hemoglobin measurement 11.0 g/dL Low 12.0-15.0 [facility] Immature granulocytes/100 WB C Auto (Bld)Ordered By: Michael Snowden on 05-21-2024 Immature granulocytes/100 WBC (Bld) 2.600 % High 0.0-0.9 [facility] Comment on above: IG% - Immature Granu locytes (promyelocytes, myelocytes and metamyelocytes) > 1% indicates that a LEFT SHIFT is Present. Automated immature granulocyte percentage 2.600 % High 0.0-0.9 [facility] Lymphocytes Auto (Unsp spec) [#/Vol]Ordered By: Michael Snowden on 05-21-2024 Lymphocytes (Bld) [#/Vol] 1.68 10*3/uL 0.83-4.5 1 [facility] Absolute lymphocyte count 1.68 X10^3/uL 0.83-4. 51 [facility] Lymphocytes/100 WBC Auto (Un sp spec)Ordered By: Michael Snowden on 05-21-2024 Lymphocytes/100 WBC (Bld) 18.3 % Low - [facility] Automated lymphocyte count as percentage of total leukocytes 18.3 % Low - [facility] MCV (RBC) [Entitic vol]Order ed By: Michael Snowden on 05-21-2024 MCV (mean corpuscular volume) determination 98.8 fL 81-99 [facility] MCV (mean corpuscular volume ) determinationOrdered By: Michael Snowden on 05-21-2024 MCV (RBC) [Entitic vol] 98.8 fL 81-99 [facility] Mean corpuscular hemoglobin (MCH) determinationOrdered By: Michael Snowden on 05-21-2024 MCH (RBC) [Entitic mass] 31.7 pg 27.0-32.0 [facility] Mean corpuscular hemoglobin (MCH) determination 31.7 pg 27.0-32.0 [facility] Mean corpuscular hemoglobin concentration (MCHC) determinationOrdered By: Michael Snowden on 05-21-2024 MCHC (RBC) [Mass/Vol] 32.1 g/dL 32- [facility] Mean corpuscular hemoglobin concentration (MCHC) determination 32.1 g/dL - [facility] Mean platelet volume determi nationOrdered By: Michael Snowden on 05-21-2024 Platelet mean volume (Bld) [Entitic vol] 8.9 fL 6.2-12.0 [facility] Mean platelet volume determination 8.9 fl 6.2-12.0 [facility] Monocyte percentageOrdered B y: Michael Snowden on 05-21-2024 Monocytes/100 WBC (Bld) 9.6 % 0-10 [facility] Monocyte percentage 9.6 % 0-10 [facility] Neutrophil percentageOrdered By: Michael Snowden on 05-21-2024 Neutrophils/100 WBC (Bld) 69.0 % 47-70 [facility] Neutrophil percentage 69.0 % 47-70 [facility] Nucleated red blood cell per centageOrdered By: Michael Snowden on 05-21-2024 Nucleated RBC/100 WBC (Bld) [Ratio] 0 % 0-5 [facility] Nucleated red blood cell percentage 0 % 0-5 [facility] Platelet countOrdered By: Augusto Snowden on 05-21-2024 Platelets (Bld) [#/Vol] 280 10*3/uL 150-450 [facility] Platelet count 280 K/mm3 150-450 [facility] Potassium measurementOrdered By: Michael Snowden on 05-21-2024 Potassium [Moles/Vol] 5.1 mmol/L 3.5-5.1 [facility] Potassium measurement 5.1 mmol/L 3.5-5.1 [facility] RBC Auto (Bld) [#/Vol]Ordere d By: Michael Snowden on 05-21-2024 RBC (Bld) [#/Vol] 3.47 10*6/uL Low 4.2-5.4 [facility] Automated blood erythrocyte count 3.47 M/mm3 Low 4.2-5.4 [facility] Serum anion gap measurementO rdered By: Michael Snowden on 05-21-2024 Anion gap [Moles/Vol] 9 mmol/L 5-15 [facility] Serum anion gap measurement 9 5-15 [facility] Serum or plasma calcium gianluca urement (mass/volume)Ordered By: Michael Snowden on 05-21-2024 Calcium [Mass/Vol] 8.9 mg/dL 8.5-10.1 [facility] Serum or plasma creatinine m easurement (mass/volume)Ordered By: Michael Snowden on 05-21-2024 Creatinine [Mass/Vol] 0.80 mg/dL 0.55-1.02 [facility] Comment on above: The validity of the calculated GFR & GFRAA in patients over 70 years has not been determined. Clinical correlation is essential. Serum or plasma urea nitroge n measurement (mass/volume)Ordered By: Michael Snowden on 05-21-2024 Urea nitrogen [Mass/Vol] 32 mg/dL High 7-18 [facility] Sodium levelOrdered By: Michael Snowden on 05-21-2024 Sodium [Moles/Vol] 140 mmol/L 136-145 [facility] Sodium level 140 mmol/L 136-145 [facility] Urea nitrogen [Mass/Vol]Orde red By: Michael Sp on 05-21-2024 Serum or plasma urea nitrogen measurement (mass/volume) 32 mg/dL High 7-18 [facility] White blood cell (WBC) count Ordered By: Michael Snowden on 05-21-2024 WBC (Bld) [#/Vol] 9.2 10*3/uL 4.4-11.0 [facility] White blood cell (WBC) count 9.2 K/mm3 4.4-11.0 [facility] COVID 19 AG RAPID (ELIE Saini)on 05-19-2024 SARS-CoV-2 (COVID-19) RNA DALILA+probe Ql (Unsp spec) Normal [facility] Comment on above: Performed By: #### M 100.505 ####[facility] [address] [place], [address] COVID-19 virus antigen assay Ordered By: Michael Snowden on 05-19-2024 SARS-CoV-2 (COVID-19) Ag IA.rapid Ql (Resp) [facility] SARS-CoV-2 (COVID-19) Ag IA. rapid Ql (Resp)Ordered By: Michael Amezquitaok on 05-19-2024 SARS-CoV-2 Antigen (Rapid) [facility] Lumbar Spine 2 or 3 Viewson 05-18-2024 Lumbar Spine 2 or 3 Views Normal [facility] Basic Metabolic Profile (BMP )on 05-14-2024 BUN/CRE 22.1 RATIO High 10-20 [facility] Comment on above: Performed By: #### L 500.2500, L100.0100 ####[facility] [address] [place], [address] CA,Total 9.2 mg/dL Normal 8.5-10.1 [facility] Comment on above: Performed By: #### L 500.2500, L100.0100 ####[facility] [address] [place], [address] Chloride [Moles/Vol] 108 mmol/L High 98-107 [facility] Comment on above: Performed By: #### L 500.2500, L100.0100 ####[facility] [address] [place], [address] CO2 [Moles/Vol] 23.0 mmol/L Normal 21.0-32.0 [facility] Comment on above: Performed By: #### L 500.2500, L100.0100 ####[facility] [address] [place], [address] Creatinine [Mass/Vol] 0.63 mg/dL Normal 0.55-1.02 [facility] Comment on above: Result Comment: The validity of the calculated GFR GFRAA in patients over70 years has not been determined. Clinical correlation isessential. Performed By: #### L 500.2500, L100.0100 ####[facility] [address] [place], [address] ECRCL 50.48 ml/min Normal [facility] Comment on above: Performed By: #### L 500.2500, L100.0100 ####[facility] [address] [place], [address] EST GFR - AA 117 mL/min Normal >60 [facility] Comment on above: Result Comment: Afri can Cymraes GFR Calc Performed By: #### L 500.2500, L100.0100 ####[facility] [address] [place], [address] GAP 6 Normal 5-15 [facility] Comment on above: Performed By: #### L 500.2500, L100.0100 ####[facility] [address] [place], [address] GFR/1.73 sq M.predicted among non-blacks MDRD (S/P/Bld) [Vol rate/Area] 96 mL/min/{1.73_m2} Normal >60 [facility] Comment on above: Result Comment: Non- GFR Calc Performed By: #### L 500.2500, L100.0100 ####[facility] [address] [place], [address] Glucose [Mass/Vol] 88 mg/dL Normal 74-106 [facility] Comment on above: Performed By: #### L 500.2500, L100.0100 ####[facility] [address] [place], [address] Potassium [Moles/Vol] 4.1 mmol/L Normal 3.5-5.1 [facility] Comment on above: Performed By: #### L 500.2500, L100.0100 ####[facility] [address] [place], [address] Sodium [Moles/Vol] 137 mmol/L Normal 136-145 [facility] Comment on above: Performed By: #### L 500.2500, L100.0100 ####[facility] [address] [place], [address] Urea nitrogen [Mass/Vol] 14 mg/dL Normal 7-18 [facility] Comment on above: Performed By: #### L 500.2500, L100.0100 ####[facility] [address] [place], [address] CBC W/Diff, Automatedon 05-01 Absolute Lymph 1.29 X10 3/uL Normal 0.83-4.51 [facility] Comment on above: Performed By: #### L 500.2500, L100.0100 ####[facility] [address] [place], [address] Absolute Neut 2.8 X10 3/uL Normal 2.0-7.7 [facility] Comment on above: Performed By: #### L 500.2500, L100.0100 ####[facility] [address] [place], [address] Basophils/100 WBC (Bld) 0.8 % Normal 0-1 [facility] Comment on above: Performed By: #### L 500.2500, L100.0100 ####[facility] [address] [place], [address] Eosinophils/100 WBC (Bld) 3.2 % Normal 0-5 [facility] Comment on above: Performed By: #### L 500.2500, L100.0100 ####[facility] [address] [place], [address] Erythrocyte distribution width (RBC) [Ratio] 13.6 % Normal 11.6-14.6 [facility] Comment on above: Performed By: #### L 500.2500, L100.0100 ####[facility] [address] [place], [address] Hematocrit (Bld) [Volume fraction] 33.9 % Low 37-47 [facility] Comment on above: Performed By: #### L 500.2500, L100.0100 ####[facility] [address] [place], [address] Hemoglobin (Bld) [Mass/Vol] 11.0 g/dL Low 12.0-15. 0 [facility] Comment on above: Performed By: #### L 500.2500, L100.0100 ####[facility] [address] [place], [address] IG% 0.400 Normal 0.0-0.9 [facility] Comment on above: Result Comment: IG% - Immature Granulocytes (promyelocytes, myelocytes andmetamyelocytes) > 1% indicates that a LEFT SHIFT is Present. Performed By: #### L 500.2500, L100.0100 ####[facility] [address] [place], [address] Lymphocytes/100 WBC (Bld) 26.2 % Normal 19-41 [facility] Comment on above: Performed By: #### L 500.2500, L100.0100 ####[facility] [address] [place], [address] MCH (RBC) [Entitic mass] 32.2 pg High 27.0-32.0 [facility] Comment on above: Performed By: #### L 500.2500, L100.0100 ####[facility] [address] [place], [address] MCHC (RBC) [Mass/Vol] 32.4 g/dL Normal 32-36 [facility] Comment on above: Performed By: #### L 500.2500, L100.0100 ####[facility] [address] [place], [address] MCV (RBC) [Entitic vol] 99.1 fL High 81-99 [facility] Comment on above: Performed By: #### L 500.2500, L100.0100 ####[facility] [address] [place], [address] Monocytes/100 WBC (Bld) 12.4 % High 0-10 [facility] Comment on above: Performed By: #### L 500.2500, L100.0100 ####[facility] [address] [place], [address] Neutrophils/100 WBC (Bld) 57.0 % Normal 47-70 [facility] Comment on above: Performed By: #### L 500.2500, L100.0100 ####[facility] [address] [place], [address] Nucleated RBC (Bld) [#/Vol] 0 10*3/uL Normal 0-5 [facility] Comment on above: Performed By: #### L 500.2500, L100.0100 ####[facility] [address] [place], [address] Platelet mean volume (Bld) [Entitic vol] 9.3 fL Normal 6.2-12.0 [facility] Comment on above: Performed By: #### L 500.2500, L100.0100 ####[facility] [address] [place], [address] Platelets (Bld) [#/Vol] 196 10*3/uL Normal 150-450 [facility] Comment on above: Performed By: #### L 500.2500, L100.0100 ####[facility] [address] [place], [address] RBC (Bld) [#/Vol] 3.42 10*6/uL Low 4.2-5.4 [facility] Comment on above: Performed By: #### L 500.2500, L100.0100 ####[facility] [address] [place], [address] RDW SD 49.5 fl High 35.1-43.9 [facility] Comment on above: Performed By: #### L 500.2500, L100.0100 ####[facility] [address] [place], [address] WBC (Bld) [#/Vol] 4.9 10*3/uL Normal 4.4-11.0 [facility] Comment on above: Performed By: #### L 500.2500, L100.0100 ####[facility] [address] [place], [address] COVID 19 AG RAPID (ELIE FROST T)on 05-12-2024 SARS-CoV-2 (COVID-19) RNA DALILA+probe Ql (Unsp spec) Normal [facility] Comment on above: Performed By: #### M 100.505 ####[facility] [address] [place], [address] COVID-19 virus antigen assay Ordered By: Michael Snowden on 05-12-2024 SARS-CoV-2 (COVID-19) Ag IA.rapid Ql (Resp) [facility] SARS-CoV-2 (COVID-19) Ag IA. rapid Ql (Resp)Ordered By: Michael Snowden on 05-12-2024 SARS-CoV-2 Antigen (Rapid) [facility] Basic Metabolic Profile (BMP )on 05-07-2024 BUN/CRE 23.5 RATIO High 10-20 [facility] Comment on above: Performed By: #### L 500.2500, L100.0100 ####[facility] [address] [place], [address] CA,Total 8.8 mg/dL Normal 8.5-10.1 [facility] Comment on above: Performed By: #### L 500.2500, L100.0100 ####[facility] [address] [place], [address] Chloride [Moles/Vol] 110 mmol/L High 98-107 [facility] Comment on above: Performed By: #### L 500.2500, L100.0100 ####[facility] [address] [place], [address] CO2 [Moles/Vol] 22.0 mmol/L Normal 21.0-32.0 [facility] Comment on above: Performed By: #### L 500.2500, L100.0100 ####[facility] [address] [place], [address] Creatinine [Mass/Vol] 0.64 mg/dL Normal 0.55-1.02 [facility] Comment on above: Result Comment: The validity of the calculated GFR GFRAA in patients over70 years has not been determined. Clinical correlation isessential. Performed By: #### L 500.2500, L100.0100 ####[facility] [address] [place], [address] ECRCL 50.29 ml/min Normal [facility] Comment on above: Performed By: #### L 500.2500, L100.0100 ####[facility] [address] [place], [address] EST GFR - AA 116 mL/min Normal >60 [facility] Comment on above: Result Comment: Afri can Cymraes GFR Calc Performed By: #### L 500.2500, L100.0100 ####[facility] [address] [place], [address] GAP 10 Normal 5-15 [facility] Comment on above: Performed By: #### L 500.2500, L100.0100 ####[facility] [address] [place], [address] GFR/1.73 sq M.predicted among non-blacks MDRD (S/P/Bld) [Vol rate/Area] 96 mL/min/{1.73_m2} Normal >60 [facility] Comment on above: Result Comment: Non- GFR Calc Performed By: #### L 500.2500, L100.0100 ####[facility] [address] [place], [address] Glucose [Mass/Vol] 94 mg/dL Normal 74-106 [facility] Comment on above: Performed By: #### L 500.2500, L100.0100 ####[facility] [address] [place], [address] Potassium [Moles/Vol] 4.1 mmol/L Normal 3.5-5.1 [facility] Comment on above: Performed By: #### L 500.2500, L100.0100 ####[facility] [address] [place], [address] Sodium [Moles/Vol] 142 mmol/L Normal 136-145 [facility] Comment on above: Performed By: #### L 500.2500, L100.0100 ####[facility] [address] [place], [address] Urea nitrogen [Mass/Vol] 15 mg/dL Normal 7-18 [facility] Comment on above: Performed By: #### L 500.2500, L100.0100 ####[facility] [address] [place], [address] CBC W/Diff, Automatedon 02-0 7-2025 Absolute Lymph 1.20 X10 3/uL Normal 0.83-4.51 [facility] Comment on above: Performed By: #### L 500.2500, L100.0100 ####[facility] [address] [place], [address] Absolute Neut 2.9 X10 3/uL Normal 2.0-7.7 [facility] Comment on above: Performed By: #### L 500.2500, L100.0100 ####[facility] [address] [place], [address] Basophils/100 WBC (Bld) 0.6 % Normal 0-1 [facility] Comment on above: Performed By: #### L 500.2500, L100.0100 ####[facility] [address] [place], [address] Eosinophils/100 WBC (Bld) 3.0 % Normal 0-5 [facility] Comment on above: Performed By: #### L 500.2500, L100.0100 ####[facility] [address] [place], [address] Erythrocyte distribution width (RBC) [Ratio] 13.7 % Normal 11.6-14.6 [facility] Comment on above: Performed By: #### L 500.2500, L100.0100 ####[facility] [address] [place], [address] Hematocrit (Bld) [Volume fraction] 35.3 % Low 37-47 [facility] Comment on above: Performed By: #### L 500.2500, L100.0100 ####[facility] [address] [place], [address] Hemoglobin (Bld) [Mass/Vol] 11.3 g/dL Low 12.0-15. 0 [facility] Comment on above: Performed By: #### L 500.2500, L100.0100 ####[facility] [address] [place], [address] IG% 0.200 Normal 0.0-0.9 [facility] Comment on above: Result Comment: IG% - Immature Granulocytes (promyelocytes, myelocytes andmetamyelocytes) > 1% indicates that a LEFT SHIFT is Present. Performed By: #### L 500.2500, L100.0100 ####[facility] [address] [place], [address] Lymphocytes/100 WBC (Bld) 25.4 % Normal 19-41 [facility] Comment on above: Performed By: #### L 500.2500, L100.0100 ####[facility] [address] [place], [address] MCH (RBC) [Entitic mass] 31.7 pg Normal 27.0-32.0 [facility] Comment on above: Performed By: #### L 500.2500, L100.0100 ####[facility] [address] [place], [address] MCHC (RBC) [Mass/Vol] 32.0 g/dL Normal 32-36 [facility] Comment on above: Performed By: #### L 500.2500, L100.0100 ####[facility] [address] [place], [address] MCV (RBC) [Entitic vol] 98.9 fL Normal 81-99 [facility] Comment on above: Performed By: #### L 500.2500, L100.0100 ####[facility] [address] [place], [address] Monocytes/100 WBC (Bld) 10.2 % High 0-10 [facility] Comment on above: Performed By: #### L 500.2500, L100.0100 ####[facility] [address] [place], [address] Neutrophils/100 WBC (Bld) 60.6 % Normal 47-70 [facility] Comment on above: Performed By: #### L 500.2500, L100.0100 ####[facility] [address] [place], [address] Nucleated RBC (Bld) [#/Vol] 0 10*3/uL Normal 0-5 [facility] Comment on above: Performed By: #### L 500.2500, L100.0100 ####[facility] [address] [place], [address] Platelet mean volume (Bld) [Entitic vol] 8.9 fL Normal 6.2-12.0 [facility] Comment on above: Performed By: #### L 500.2500, L100.0100 ####[facility] [address] [place], [address] Platelets (Bld) [#/Vol] 208 10*3/uL Normal 150-450 [facility] Comment on above: Performed By: #### L 500.2500, L100.0100 ####[facility] [address] [place], [address] RBC (Bld) [#/Vol] 3.57 10*6/uL Low 4.2-5.4 [facility] Comment on above: Performed By: #### L 500.2500, L100.0100 ####[facility] [address] [place], [address] RDW SD 50.4 fl High 35.1-43.9 [facility] Comment on above: Performed By: #### L 500.2500, L100.0100 ####[facility] [address], [address] WBC (Bld) [#/Vol] 4.7 10*3/uL Normal 4.4-11.0 [facility] Comment on above: Performed By: #### L 500.2500, L100.0100 ####[facility] [address] [place], [address] Basic Metabolic Profile (BMP )on 04-30-2024 BUN/CRE 28.8 RATIO High 10-20 [facility] Comment on above: Performed By: #### L 100.0100, L500.2500 ####[facility] [address] [place], [address] CA,Total 8.9 mg/dL Normal 8.5-10.1 [facility] Comment on above: Performed By: #### L 100.0100, L500.2500 ####[facility] [address], [address] Chloride [Moles/Vol] 112 mmol/L High 98-107 [facility] Comment on above: Performed By: #### L 100.0100, L500.2500 ####[facility] [address] [place], [address] CO2 [Moles/Vol] 22.0 mmol/L Normal 21.0-32.0 [facility] Comment on above: Performed By: #### L 100.0100, L500.2500 ####[facility] [address] [place], [address] Creatinine [Mass/Vol] 0.73 mg/dL Normal 0.55-1.02 [facility] Comment on above: Result Comment: The validity of the calculated GFR GFRAA in patients over70 years has not been determined. Clinical correlation isessential. Performed By: #### L 100.0100, L500.2500 ####[facility] [address] [place], [address] ECRCL 50.34 ml/min Normal [facility] Comment on above: Performed By: #### L 100.0100, L500.2500 ####[facility] [address] [place], [address] EST GFR - AA 99 mL/min Normal >60 [facility] Comment on above: Result Comment: Afri can Cymraes GFR Calc Performed By: #### L 100.0100, L500.2500 ####[facility] [address] [place], [address] GAP 5 Normal 5-15 [facility] Comment on above: Performed By: #### L 100.0100, L500.2500 ####[facility] [address] [place], [address] GFR/1.73 sq M.predicted among non-blacks MDRD (S/P/Bld) [Vol rate/Area] 82 mL/min/{1.73_m2} Normal >60 [facility] Comment on above: Result Comment: Non- GFR Calc Performed By: #### L 100.0100, L500.2500 ####[facility] [address] [place], [address] Glucose [Mass/Vol] 96 mg/dL Normal 74-106 [facility] Comment on above: Performed By: #### L 100.0100, L500.2500 ####[facility] [address] [place], [address] Potassium [Moles/Vol] 4.3 mmol/L Normal 3.5-5.1 [facility] Comment on above: Performed By: #### L 100.0100, L500.2500 ####[facility] [address] [place], [address] Sodium [Moles/Vol] 140 mmol/L Normal 136-145 [facility] Comment on above: Performed By: #### L 100.0100, L500.2500 ####[facility] [address] [place], [address] Urea nitrogen [Mass/Vol] 21 mg/dL High 7-18 [facility] Comment on above: Performed By: #### L 100.0100, L500.2500 ####[facility] [address] [place], [address] CBC W/Diff, Automatedon -3 Absolute Lymph 1.28 X10 3/uL Normal 0.83-4.51 [facility] Comment on above: Performed By: #### L 100.0100, L500.2500 ####[facility] [address] [place], [address] Absolute Neut 3.9 X10 3/uL Normal 2.0-7.7 [facility] Comment on above: Performed By: #### L 100.0100, L500.2500 ####[facility] [address] [place], [address] Basophils/100 WBC (Bld) 1.0 % Normal 0-1 [facility] Comment on above: Performed By: #### L 100.0100, L500.2500 ####[facility] [address] [place], [address] Eosinophils/100 WBC (Bld) 2.2 % Normal 0-5 [facility] Comment on above: Performed By: #### L 100.0100, L500.2500 ####[facility] [address] [place], [address] Erythrocyte distribution width (RBC) [Ratio] 13.9 % Normal 11.6-14.6 [facility] Comment on above: Performed By: #### L 100.0100, L500.2500 ####[facility] [address] [place], [address] Hematocrit (Bld) [Volume fraction] 36.1 % Low 37-47 [facility] Comment on above: Performed By: #### L 100.0100, L500.2500 ####[facility] [address] [place], [address] Hemoglobin (Bld) [Mass/Vol] 11.9 g/dL Low 12.0-15. 0 [facility] Comment on above: Performed By: #### L 100.0100, L500.2500 ####[facility] [address] [place], [address] IG% 0.500 Normal 0.0-0.9 [facility] Comment on above: Result Comment: IG% - Immature Granulocytes (promyelocytes, myelocytes andmetamyelocytes) > 1% indicates that a LEFT SHIFT is Present. Performed By: #### L 100.0100, L500.2500 ####[facility] [address] [place], [address] Lymphocytes/100 WBC (Bld) 21.3 % Normal 19-41 [facility] Comment on above: Performed By: #### L 100.0100, L500.2500 ####[facility] [address] [place], [address] MCH (RBC) [Entitic mass] 32.4 pg High 27.0-32.0 [facility] Comment on above: Performed By: #### L 100.0100, L500.2500 ####[facility] [address] [place], [address] MCHC (RBC) [Mass/Vol] 33.0 g/dL Normal 32-36 [facility] Comment on above: Performed By: #### L 100.0100, L500.2500 ####[facility] [address] [place], [address] MCV (RBC) [Entitic vol] 98.4 fL Normal 81-99 [facility] Comment on above: Performed By: #### L 100.0100, L500.2500 ####[facility] [address] [place], [address] Monocytes/100 WBC (Bld) 10.3 % High 0-10 [facility] Comment on above: Performed By: #### L 100.0100, L500.2500 ####[facility] [address] [place], [address] Neutrophils/100 WBC (Bld) 64.7 % Normal 47-70 [facility] Comment on above: Performed By: #### L 100.0100, L500.2500 ####[facility] [address] [place], [address] Nucleated RBC (Bld) [#/Vol] 0 10*3/uL Normal 0-5 [facility] Comment on above: Performed By: #### L 100.0100, L500.2500 ####[facility] [address] [place], [address] Platelet mean volume (Bld) [Entitic vol] 8.8 fL Normal 6.2-12.0 [facility] Comment on above: Performed By: #### L 100.0100, L500.2500 ####[facility] [address] [place], [address] Platelets (Bld) [#/Vol] 265 10*3/uL Normal 150-450 [facility] Comment on above: Performed By: #### L 100.0100, L500.2500 ####[facility] [address] [place], [address] RBC (Bld) [#/Vol] 3.67 10*6/uL Low 4.2-5.4 [facility] Comment on above: Performed By: #### L 100.0100, L500.2500 ####[facility] [address] [place], [address] RDW SD 50.2 fl High 35.1-43.9 [facility] Comment on above: Performed By: #### L 100.0100, L500.2500 ####[facility] [address] [place], [address] WBC (Bld) [#/Vol] 6.0 10*3/uL Normal 4.4-11.0 [facility] Comment on above: Performed By: #### L 100.0100, L500.2500 ####[facility] [address] [place], [address] Basic Metabolic Profile (BMP )on 04-23-2024 BUN/CRE 33.6 RATIO High 10-20 [facility] Comment on above: Performed By: #### L 100.0100, L500.2500 ####[facility] [address] [place], [address] CA,Total 8.8 mg/dL Normal 8.5-10.1 [facility] Comment on above: Performed By: #### L 100.0100, L500.2500 ####[facility] [address] [place], [address] Chloride [Moles/Vol] 108 mmol/L High 98-107 [facility] Comment on above: Performed By: #### L 100.0100, L500.2500 ####[facility] [address], [address] CO2 [Moles/Vol] 22.0 mmol/L Normal 21.0-32.0 [facility] Comment on above: Performed By: #### L 100.0100, L500.2500 ####[facility] [address] [place], [address] Creatinine [Mass/Vol] 0.68 mg/dL Normal 0.55-1.02 [facility] Comment on above: Result Comment: The validity of the calculated GFR GFRAA in patients over70 years has not been determined. Clinical correlation isessential. Performed By: #### L 100.0100, L500.2500 ####[facility] [address] [place], [address] ECRCL 50.54 ml/min Normal [facility] Comment on above: Performed By: #### L 100.0100, L500.2500 ####[facility] [address] [place], [address] EST GFR - AA 107 mL/min Normal >60 [facility] Comment on above: Result Comment: Afri can Cymraes GFR Calc Performed By: #### L 100.0100, L500.2500 ####[facility] [address] [place], [address] GAP 6 Normal 5-15 [facility] Comment on above: Performed By: #### L 100.0100, L500.2500 ####[facility] [address] [place], [address] GFR/1.73 sq M.predicted among non-blacks MDRD (S/P/Bld) [Vol rate/Area] 88 mL/min/{1.73_m2} Normal >60 [facility] Comment on above: Result Comment: Non- GFR Calc Performed By: #### L 100.0100, L500.2500 ####[facility] [address] [place], [address] Glucose [Mass/Vol] 97 mg/dL Normal 74-106 [facility] Comment on above: Performed By: #### L 100.0100, L500.2500 ####[facility] [address] [place], [address] Potassium [Moles/Vol] 4.6 mmol/L Normal 3.5-5.1 [facility] Comment on above: Performed By: #### L 100.0100, L500.2500 ####[facility] [address] [place], [address] Sodium [Moles/Vol] 136 mmol/L Normal 136-145 [facility] Comment on above: Performed By: #### L 100.0100, L500.2500 ####[facility] [address] [place], [address] Urea nitrogen [Mass/Vol] 23 mg/dL High 7-18 [facility] Comment on above: Performed By: #### L 100.0100, L500.2500 ####[facility] [address] [place], [address] CBC W/Diff, Automatedon 04-01 Absolute Lymph 1.47 X10 3/uL Normal 0.83-4.51 [facility] Comment on above: Performed By: #### L 100.0100, L500.2500 ####[facility] [address] [place], [address] Absolute Neut 4.2 X10 3/uL Normal 2.0-7.7 [facility] Comment on above: Performed By: #### L 100.0100, L500.2500 ####[facility] [address] [place], [address] Basophils/100 WBC (Bld) 0.6 % Normal 0-1 [facility] Comment on above: Performed By: #### L 100.0100, L500.2500 ####[facility] [address] [place], [address] Eosinophils/100 WBC (Bld) 2.1 % Normal 0-5 [facility] Comment on above: Performed By: #### L 100.0100, L500.2500 ####[facility] [address] [place], [address] Erythrocyte distribution width (RBC) [Ratio] 13.2 % Normal 11.6-14.6 [facility] Comment on above: Performed By: #### L 100.0100, L500.2500 ####[facility] [address] [place], [address] Hematocrit (Bld) [Volume fraction] 34.8 % Low 37-47 [facility] Comment on above: Performed By: #### L 100.0100, L500.2500 ####[facility] [address] [place], [address] Hemoglobin (Bld) [Mass/Vol] 11.5 g/dL Low 12.0-15. 0 [facility] Comment on above: Performed By: #### L 100.0100, L500.2500 ####[facility] [address] [place], [address] IG% 2.400 High 0.0-0.9 [facility] Comment on above: Result Comment: IG% - Immature Granulocytes (promyelocytes, myelocytes andmetamyelocytes) > 1% indicates that a LEFT SHIFT is Present. Performed By: #### L 100.0100, L500.2500 ####[facility] [address] [place], [address] Lymphocytes/100 WBC (Bld) 22.0 % Normal 19-41 [facility] Comment on above: Performed By: #### L 100.0100, L500.2500 ####[facility] [address] [place], [address] MCH (RBC) [Entitic mass] 32.5 pg High 27.0-32.0 [facility] Comment on above: Performed By: #### L 100.0100, L500.2500 ####[facility] [address] [place], [address] MCHC (RBC) [Mass/Vol] 33.0 g/dL Normal 32-36 [facility] Comment on above: Performed By: #### L 100.0100, L500.2500 ####[facility] [address] [place], [address] MCV (RBC) [Entitic vol] 98.3 fL Normal 81-99 [facility] Comment on above: Performed By: #### L 100.0100, L500.2500 ####[facility] [address] [place], [address] Monocytes/100 WBC (Bld) 10.3 % High 0-10 [facility] Comment on above: Performed By: #### L 100.0100, L500.2500 ####[facility] [address] [place], [address] Neutrophils/100 WBC (Bld) 62.6 % Normal 47-70 [facility] Comment on above: Performed By: #### L 100.0100, L500.2500 ####[facility] [address] [place], [address] Nucleated RBC (Bld) [#/Vol] 0 10*3/uL Normal 0-5 [facility] Comment on above: Performed By: #### L 100.0100, L500.2500 ####[facility] [address] [place], [address] Platelet mean volume (Bld) [Entitic vol] 9.0 fL Normal 6.2-12.0 [facility] Comment on above: Performed By: #### L 100.0100, L500.2500 ####[facility] [address] [place], [address] Platelets (Bld) [#/Vol] 263 10*3/uL Normal 150-450 [facility] Comment on above: Performed By: #### L 100.0100, L500.2500 ####[facility] [address] [place], [address] RBC (Bld) [#/Vol] 3.54 10*6/uL Low 4.2-5.4 [facility] Comment on above: Performed By: #### L 100.0100, L500.2500 ####[facility] [address] [place], [address] RDW SD 47.7 fl High 35.1-43.9 [facility] Comment on above: Performed By: #### L 100.0100, L500.2500 ####[facility] [address] [place], [address] WBC (Bld) [#/Vol] 6.7 10*3/uL Normal 4.4-11.0 [facility] Comment on above: Performed By: #### L 100.0100, L500.2500 ####[facility] [address] [place], [address] Basic Metabolic Profile (BMP )on 04-19-2024 BUN Normal -18 [facility] Comment on above: Result Comment: Canc elled via OM: Order cancelled - Patient discharged Performed By: #### L 100.0500, L500.2500 ####[facility] [address] [place], [address] BUN/CRE Normal -20 [facility] Comment on above: Result Comment: Canc elled via OM: Order cancelled - Patient discharged Performed By: #### L 100.0500, L500.2500 ####[facility] [address] [place], [address] CA,Total Normal 8.5-10.1 [facility] Comment on above: Result Comment: Canc elled via OM: Order cancelled - Patient discharged Performed By: #### L 100.0500, L500.2500 ####[facility] [address] [place], [address] CL Normal 98-107 [facility] Comment on above: Result Comment: Canc elled via OM: Order cancelled - Patient discharged Performed By: #### L 100.0500, L500.2500 ####[facility] [address] [place], [address] CO2 Normal 21.0-32.0 [facility] Comment on above: Result Comment: Canc elled via OM: Order cancelled - Patient discharged Performed By: #### L 100.0500, L500.2500 ####[facility] [address] [place], [address] CREAT,SERUM Normal 0.55-1.02 [facility] Comment on above: Result Comment: Canc elled via OM: Order cancelled - Patient discharged Performed By: #### L 100.0500, L500.2500 ####[facility] [address] [place], [address] EST GFR Normal >60 [facility] Comment on above: Result Comment: Canc elled via OM: Order cancelled - Patient discharged Performed By: #### L 100.0500, L500.2500 ####[facility] [address] [place], [address] EST GFR - AA Normal >60 [facility] Comment on above: Result Comment: Canc elled via OM: Order cancelled - Patient discharged Performed By: #### L 100.0500, L500.2500 ####[facility] [address] [place], [address] GAP Normal 5-15 [facility] Comment on above: Result Comment: Canc elled via OM: Order cancelled - Patient discharged Performed By: #### L 100.0500, L500.2500 ####[facility] [address] [place], [address] GLU Normal 74-106 [facility] Comment on above: Result Comment: Canc elled via OM: Order cancelled - Patient discharged Performed By: #### L 100.0500, L500.2500 ####[facility] [address], [address] Potassium Normal 3.5-5.1 [facility] Comment on above: Result Comment: Canc elled via OM: Order cancelled - Patient discharged Performed By: #### L 100.0500, L500.2500 ####[facility] [address], [address] Basic Metabolic Profile (BMP) Normal 136-145 [facility] Comment on above: Result Comment: Canc elled via OM: Order cancelled - Patient discharged Performed By: #### L 100.0500, L500.2500 ####[facility] [address] [place], [address] CBC-Complete Blood Cnt No Di ffon 04-19-2024 HCT Normal 37-47 [facility] Comment on above: Result Comment: Canc elled via OM: Order cancelled - Patient discharged Performed By: #### L 100.0500, L500.2500 ####[facility] [address] [place], [address] HGB Normal 12.0-15.0 [facility] Comment on above: Result Comment: Canc elled via OM: Order cancelled - Patient discharged Performed By: #### L 100.0500, L500.2500 ####[facility] [address] [place], [address] MCH Normal 27.0-32.0 [facility] Comment on above: Result Comment: Canc elled via OM: Order cancelled - Patient discharged Performed By: #### L 100.0500, L500.2500 ####[facility] [address] [place], [address] MCHC Normal 32-36 [facility] Comment on above: Result Comment: Canc elled via OM: Order cancelled - Patient discharged Performed By: #### L 100.0500, L500.2500 ####[facility] [address] [place], [address] MCV Normal 81-99 [facility] Comment on above: Result Comment: Canc elled via OM: Order cancelled - Patient discharged Performed By: #### L 100.0500, L500.2500 ####[facility] [address] [facility] [address] PLT Normal 150-450 [facility] Comment on above: Result Comment: Canc elled via OM: Order cancelled - Patient discharged Performed By: #### L 100.0500, L500.2500 ####[facility] [address] [facility] [address] RBC Normal 4.2-5.4 [facility] Comment on above: Result Comment: Canc elled via OM: Order cancelled - Patient discharged Performed By: #### L 100.0500, L500.2500 ####[facility] [address] [facility] [address] RDW CV Normal 11.6-14.6 [facility] Comment on above: Result Comment: Canc elled via OM: Order cancelled - Patient discharged Performed By: #### L 100.0500, L500.2500 ####[facility] [address] [facility] [address] RDW SD Normal 35.1-43.9 [facility] Comment on above: Result Comment: Canc elled via OM: Order cancelled - Patient discharged Performed By: #### L 100.0500, L500.2500 ####[facility] [address] [place], [address] WBC Normal 4.4-11.0 [facility] Comment on above: Result Comment: Canc elled via OM: Order cancelled - Patient discharged Performed By: #### L 100.0500, L500.2500 ####[facility] [address] [place], [address] Basic Metabolic Profile (BMP )on 04-18-2024 BUN Normal 7-18 [facility] Comment on above: Result Comment: Canc elled via OM: Order cancelled - Patient discharged Performed By: #### L 100.0500, L500.2500 ####[facility] [address] [place], [address] BUN/CRE Normal 10-20 [facility] Comment on above: Result Comment: Canc elled via OM: Order cancelled - Patient discharged Performed By: #### L 100.0500, L500.2500 ####[facility] [address] [place], [address] CA,Total Normal 8.5-10.1 [facility] Comment on above: Result Comment: Canc elled via OM: Order cancelled - Patient discharged Performed By: #### L 100.0500, L500.2500 ####[facility] [address] [place], [address] CL Normal 98-107 [facility] Comment on above: Result Comment: Canc elled via OM: Order cancelled - Patient discharged Performed By: #### L 100.0500, L500.2500 ####[facility] [address] [place], [address] CO2 Normal 21.0-32.0 [facility] Comment on above: Result Comment: Canc elled via OM: Order cancelled - Patient discharged Performed By: #### L 100.0500, L500.2500 ####[facility] [address] [place], [address] CREAT,SERUM Normal 0.55-1.02 [facility] Comment on above: Result Comment: Canc elled via OM: Order cancelled - Patient discharged Performed By: #### L 100.0500, L500.2500 ####[facility] [address] [place], [address] EST GFR Normal >60 [facility] Comment on above: Result Comment: Canc elled via OM: Order cancelled - Patient discharged Performed By: #### L 100.0500, L500.2500 ####[facility] [address] [place], [address] EST GFR - AA Normal >60 [facility] Comment on above: Result Comment: Canc elled via OM: Order cancelled - Patient discharged Performed By: #### L 100.0500, L500.2500 ####[facility] [address] [place], [address] GAP Normal 5-15 [facility] Comment on above: Result Comment: Canc elled via OM: Order cancelled - Patient discharged Performed By: #### L 100.0500, L500.2500 ####[facility] [address] [place], [address] GLU Normal 74-106 [facility] Comment on above: Result Comment: Canc elled via OM: Order cancelled - Patient discharged Performed By: #### L 100.0500, L500.2500 ####[facility] [address] [place], [address] Potassium Normal 3.5-5.1 [facility] Comment on above: Result Comment: Canc elled via OM: Order cancelled - Patient discharged Performed By: #### L 100.0500, L500.2500 ####[facility] [address] [place], [address] Basic Metabolic Profile (BMP) Normal 136-145 [facility] Comment on above: Result Comment: Canc elled via OM: Order cancelled - Patient discharged Performed By: #### L 100.0500, L500.2500 ####[facility] [address] [place], [address] CBC-Complete Blood Cnt No Di ffon 04-18-2024 HCT Normal 37-47 [facility] Comment on above: Result Comment: Canc elled via OM: Order cancelled - Patient discharged Performed By: #### L 100.0500, L500.2500 ####[facility] [address] [place], [address] HGB Normal 12.0-15.0 [facility] Comment on above: Result Comment: Canc elled via OM: Order cancelled - Patient discharged Performed By: #### L 100.0500, L500.2500 ####[facility] [address] [place], [address] MCH Normal 27.0-32.0 [facility] Comment on above: Result Comment: Canc elled via OM: Order cancelled - Patient discharged Performed By: #### L 100.0500, L500.2500 ####[facility] [address] [place], [address] MCHC Normal 32-36 [facility] Comment on above: Result Comment: Canc elled via OM: Order cancelled - Patient discharged Performed By: #### L 100.0500, L500.2500 ####[facility] [address] [place], [address] MCV Normal 81-99 [facility] Comment on above: Result Comment: Canc elled via OM: Order cancelled - Patient discharged Performed By: #### L 100.0500, L500.2500 ####[facility] [address] [place], [address] PLT Normal 150-450 [facility] Comment on above: Result Comment: Canc elled via OM: Order cancelled - Patient discharged Performed By: #### L 100.0500, L500.2500 ####[facility] [address] [place], [address] RBC Normal 4.2-5.4 [facility] Comment on above: Result Comment: Canc elled via OM: Order cancelled - Patient discharged Performed By: #### L 100.0500, L500.2500 ####[facility] [address] [place], [address] RDW CV Normal 11.6-14.6 [facility] Comment on above: Result Comment: Canc elled via OM: Order cancelled - Patient discharged Performed By: #### L 100.0500, L500.2500 ####[facility] [address] [place], [address] RDW SD Normal 35.1-43.9 [facility] Comment on above: Result Comment: Canc elled via OM: Order cancelled - Patient discharged Performed By: #### L 100.0500, L500.2500 ####[facility] [address] [place], [address] WBC Normal 4.4-11.0 [facility] Comment on above: Result Comment: Canc elled via OM: Order cancelled - Patient discharged Performed By: #### L 100.0500, L500.2500 ####[facility] [address] [place], [address] Basic Metabolic Profile (BMP )on 04-17-2024 BUN Normal 7-18 [facility] Comment on above: Result Comment: Canc elled via OM: Order cancelled - Patient discharged Performed By: #### L 500.2500, L100.0500 ####[facility] [address] [place], [address] BUN/CRE Normal 10-20 [facility] Comment on above: Result Comment: Canc elled via OM: Order cancelled - Patient discharged Performed By: #### L 500.2500, L100.0500 ####[facility] [address], [address] CA,Total Normal 8.5-10.1 [facility] Comment on above: Result Comment: Canc elled via OM: Order cancelled - Patient discharged Performed By: #### L 500.2500, L100.0500 ####[facility] [address] [place], [address] CL Normal 98-107 [facility] Comment on above: Result Comment: Canc elled via OM: Order cancelled - Patient discharged Performed By: #### L 500.2500, L100.0500 ####[facility] [address] [place], [address] CO2 Normal 21.0-32.0 [facility] Comment on above: Result Comment: Canc elled via OM: Order cancelled - Patient discharged Performed By: #### L 500.2500, L100.0500 ####[facility] [address] [place], [address] CREAT,SERUM Normal 0.55-1.02 [facility] Comment on above: Result Comment: Canc elled via OM: Order cancelled - Patient discharged Performed By: #### L 500.2500, L100.0500 ####[facility] [address] [place], [address] EST GFR Normal >60 [facility] Comment on above: Result Comment: Canc elled via OM: Order cancelled - Patient discharged Performed By: #### L 500.2500, L100.0500 ####[facility] [address] [place], [address] EST GFR - AA Normal >60 [facility] Comment on above: Result Comment: Canc elled via OM: Order cancelled - Patient discharged Performed By: #### L 500.2500, L100.0500 ####[facility] [address] [place], [address] GAP Normal 5-15 [facility] Comment on above: Result Comment: Canc elled via OM: Order cancelled - Patient discharged Performed By: #### L 500.2500, L100.0500 ####[facility] [address] [place], [address] GLU Normal 74-106 [facility] Comment on above: Result Comment: Canc elled via OM: Order cancelled - Patient discharged Performed By: #### L 500.2500, L100.0500 ####[facility] [address] [place], [address] Potassium Normal 3.5-5.1 [facility] Comment on above: Result Comment: Canc elled via OM: Order cancelled - Patient discharged Performed By: #### L 500.2500, L100.0500 ####[facility] [address] [place], [address] Basic Metabolic Profile (BMP) Normal 136-145 [facility] Comment on above: Result Comment: Canc elled via OM: Order cancelled - Patient discharged Performed By: #### L 500.2500, L100.0500 ####[facility] [address] [place], [address] BUN/CRE 36.8 RATIO High 10-20 [facility] Comment on above: Performed By: #### L 100.0100, L500.2500 ####[facility] [address] [place], [address] CA,Total 8.9 mg/dL Normal 8.5-10.1 [facility] Comment on above: Performed By: #### L 100.0100, L500.2500 ####[facility] [address] [place], [address] Chloride [Moles/Vol] 106 mmol/L Normal 98-107 [facility] Comment on above: Performed By: #### L 100.0100, L500.2500 ####[facility] [address] [place], [address] CO2 [Moles/Vol] 23.0 mmol/L Normal 21.0-32.0 [facility] Comment on above: Performed By: #### L 100.0100, L500.2500 ####[facility] [address] [place], [address] Creatinine [Mass/Vol] 0.71 mg/dL Normal 0.55-1.02 [facility] Comment on above: Result Comment: The validity of the calculated GFR GFRAA in patients over70 years has not been determined. Clinical correlation isessential. Performed By: #### L 100.0100, L500.2500 ####[facility] [address] [place], [address] ECRCL 50.11 ml/min Normal [facility] Comment on above: Performed By: #### L 100.0100, L500.2500 ####[facility] [address] [place], [address] EST GFR - AA 103 mL/min Normal >60 [facility] Comment on above: Result Comment: Afri can Cymraes GFR Calc Performed By: #### L 100.0100, L500.2500 ####[facility] [address] [place], [address] GAP 6 Normal 5-15 [facility] Comment on above: Performed By: #### L 100.0100, L500.2500 ####[facility] [address] [place], [address] GFR/1.73 sq M.predicted among non-blacks MDRD (S/P/Bld) [Vol rate/Area] 85 mL/min/{1.73_m2} Normal >60 [facility] Comment on above: Result Comment: Non- GFR Calc Performed By: #### L 100.0100, L500.2500 ####[facility] [address] [place], [address] Glucose [Mass/Vol] 108 mg/dL High 74-106 [facility] Comment on above: Result Comment: Fast ing Glucose result from 100 to 125 mg/dLsuggests IMPAIRED HOMEOSTASIS per A.D.A. criteria. Performed By: #### L 100.0100, L500.2500 ####[facility] [address] [place], [address] Potassium [Moles/Vol] 4.2 mmol/L Normal 3.5-5.1 [facility] Comment on above: Performed By: #### L 100.0100, L500.2500 ####[facility] [address] [place], [address] Sodium [Moles/Vol] 135 mmol/L Low 136-145 [facility] Comment on above: Performed By: #### L 100.0100, L500.2500 ####[facility] [address] [place], [address] Urea nitrogen [Mass/Vol] 26 mg/dL High 7-18 [facility] Comment on above: Performed By: #### L 100.0100, L500.2500 ####[facility] [address] [place], [address] CBC W/Diff, Automatedon 03-31 Absolute Lymph 1.39 X10 3/uL Normal 0.83-4.51 [facility] Comment on above: Performed By: #### L 100.0100, L500.2500 ####[facility] [address] [place], [address] Absolute Neut 5.3 X10 3/uL Normal 2.0-7.7 [facility] Comment on above: Performed By: #### L 100.0100, L500.2500 ####[facility] [address] [place], [address] Basophils/100 WBC (Bld) 0.3 % Normal 0-1 [facility] Comment on above: Performed By: #### L 100.0100, L500.2500 ####[facility] [address] [place], [address] Eosinophils/100 WBC (Bld) 0.3 % Normal 0-5 [facility] Comment on above: Performed By: #### L 100.0100, L500.2500 ####[facility] [address] [place], [address] Erythrocyte distribution width (RBC) [Ratio] 13.0 % Normal 11.6-14.6 [facility] Comment on above: Performed By: #### L 100.0100, L500.2500 ####[facility] [address] [place], [address] Hematocrit (Bld) [Volume fraction] 35.2 % Low 37-47 [facility] Comment on above: Performed By: #### L 100.0100, L500.2500 ####[facility] [address] [place], [address] Hemoglobin (Bld) [Mass/Vol] 11.4 g/dL Low 12.0-15. 0 [facility] Comment on above: Performed By: #### L 100.0100, L500.2500 ####[facility] [address] [place], [address] IG% 0.300 Normal 0.0-0.9 [facility] Comment on above: Result Comment: IG% - Immature Granulocytes (promyelocytes, myelocytes andmetamyelocytes) > 1% indicates that a LEFT SHIFT is Present. Performed By: #### L 100.0100, L500.2500 ####[facility] [address] [place], [address] Lymphocytes/100 WBC (Bld) 18.8 % Low 19-41 [facility] Comment on above: Performed By: #### L 100.0100, L500.2500 ####[facility] [address] [place], [address] MCH (RBC) [Entitic mass] 31.7 pg Normal 27.0-32.0 [facility] Comment on above: Performed By: #### L 100.0100, L500.2500 ####[facility] [address] [place], [address] MCHC (RBC) [Mass/Vol] 32.4 g/dL Normal 32-36 [facility] Comment on above: Performed By: #### L 100.0100, L500.2500 ####[facility] [address] [place], [address] MCV (RBC) [Entitic vol] 97.8 fL Normal 81-99 [facility] Comment on above: Performed By: #### L 100.0100, L500.2500 ####[facility] [address] [place], [address] Monocytes/100 WBC (Bld) 8.3 % Normal 0-10 [facility] Comment on above: Performed By: #### L 100.0100, L500.2500 ####[facility] [address] [place], [address] Neutrophils/100 WBC (Bld) 72.0 % High 47-70 [facility] Comment on above: Performed By: #### L 100.0100, L500.2500 ####[facility] [address] [place], [address] Nucleated RBC (Bld) [#/Vol] 0 10*3/uL Normal 0-5 [facility] Comment on above: Performed By: #### L 100.0100, L500.2500 ####[facility] [address] [place], [address] Platelet mean volume (Bld) [Entitic vol] 9.0 fL Normal 6.2-12.0 [facility] Comment on above: Performed By: #### L 100.0100, L500.2500 ####[facility] [address] [place], [address] Platelets (Bld) [#/Vol] 261 10*3/uL Normal 150-450 [facility] Comment on above: Performed By: #### L 100.0100, L500.2500 ####[facility] [address] [place], [address] RBC (Bld) [#/Vol] 3.60 10*6/uL Low 4.2-5.4 [facility] Comment on above: Performed By: #### L 100.0100, L500.2500 ####[facility] [address] [place], [address] RDW SD 46.8 fl High 35.1-43.9 [facility] Comment on above: Performed By: #### L 100.0100, L500.2500 ####[facility] [address] [place], [address] WBC (Bld) [#/Vol] 7.4 10*3/uL Normal 4.4-11.0 [facility] Comment on above: Performed By: #### L 100.0100, L500.2500 ####[facility] [address] [place], [address] CBC-Complete Blood Cnt No Di ffon 04-17-2024 HCT Normal 37-47 [facility] Comment on above: Result Comment: Canc elled via OM: Order cancelled - Patient discharged Performed By: #### L 500.2500, L100.0500 ####[facility] [address] [place], [address] HGB Normal 12.0-15.0 [facility] Comment on above: Result Comment: Canc elled via OM: Order cancelled - Patient discharged Performed By: #### L 500.2500, L100.0500 ####[facility] [address] [place], [address] MCH Normal 27.0-32.0 [facility] Comment on above: Result Comment: Canc elled via OM: Order cancelled - Patient discharged Performed By: #### L 500.2500, L100.0500 ####[facility] [address] [place], [address] MCHC Normal 32-36 [facility] Comment on above: Result Comment: Canc elled via OM: Order cancelled - Patient discharged Performed By: #### L 500.2500, L100.0500 ####[facility] [address] [place], [address] MCV Normal 81-99 [facility] Comment on above: Result Comment: Canc elled via OM: Order cancelled - Patient discharged Performed By: #### L 500.2500, L100.0500 ####[facility] [address] [place], [address] PLT Normal 150-450 [facility] Comment on above: Result Comment: Canc elled via OM: Order cancelled - Patient discharged Performed By: #### L 500.2500, L100.0500 ####[facility] [address] [place], [address] RBC Normal 4.2-5.4 [facility] Comment on above: Result Comment: Canc elled via OM: Order cancelled - Patient discharged Performed By: #### L 500.2500, L100.0500 ####[facility] [address] [place], [address] RDW CV Normal 11.6-14.6 [facility] Comment on above: Result Comment: Canc elled via OM: Order cancelled - Patient discharged Performed By: #### L 500.2500, L100.0500 ####[facility] [address] [place], [address] RDW SD Normal 35.1-43.9 [facility] Comment on above: Result Comment: Canc elled via OM: Order cancelled - Patient discharged Performed By: #### L 500.2500, L100.0500 ####[facility] [address] [place], [address] WBC Normal 4.4-11.0 [facility] Comment on above: Result Comment: Canc elled via OM: Order cancelled - Patient discharged Performed By: #### L 500.2500, L100.0500 ####[facility] [address] [place], [address] Basic Metabolic Profile (BMP )on 04-16-2024 BUN/CRE 31.0 RATIO High 10-20 [facility] Comment on above: Performed By: #### L 500.2500, L100.0500 ####[facility] [address] [place], [address] CA,Total 9.3 mg/dL Normal 8.5-10.1 [facility] Comment on above: Performed By: #### L 500.2500, L100.0500 ####[facility] [address] [place], [address] Chloride [Moles/Vol] 107 mmol/L Normal 98-107 [facility] Comment on above: Performed By: #### L 500.2500, L100.0500 ####[facility] [address] [place], [address] CO2 [Moles/Vol] 25.0 mmol/L Normal 21.0-32.0 [facility] Comment on above: Performed By: #### L 500.2500, L100.0500 ####[facility] [address] [place], [address] Creatinine [Mass/Vol] 0.68 mg/dL Normal 0.55-1.02 [facility] Comment on above: Result Comment: The validity of the calculated GFR GFRAA in patients over70 years has not been determined. Clinical correlation isessential. Performed By: #### L 500.2500, L100.0500 ####[facility] [address] [place], [address] ECRCL 50.81 ml/min Normal [facility] Comment on above: Performed By: #### L 500.2500, L100.0500 ####[facility] [address] [place], [address] EST GFR - AA 108 mL/min Normal >60 [facility] Comment on above: Result Comment: Afri can Cymraes GFR Calc Performed By: #### L 500.2500, L100.0500 ####[facility] [address] [place], [address] GAP 5 Normal 5-15 [facility] Comment on above: Performed By: #### L 500.2500, L100.0500 ####[facility] [address] [place], [address] GFR/1.73 sq M.predicted among non-blacks MDRD (S/P/Bld) [Vol rate/Area] 89 mL/min/{1.73_m2} Normal >60 [facility] Comment on above: Result Comment: Non- GFR Calc Performed By: #### L 500.2500, L100.0500 ####[facility] [address] [place], [address] Glucose [Mass/Vol] 113 mg/dL High 74-106 [facility] Comment on above: Result Comment: Fast ing Glucose result from 100 to 125 mg/dLsuggests IMPAIRED HOMEOSTASIS per A.D.A. criteria. Performed By: #### L 500.2500, L100.0500 ####[facility] [address] [place], [address] Potassium [Moles/Vol] 4.5 mmol/L Normal 3.5-5.1 [facility] Comment on above: Performed By: #### L 500.2500, L100.0500 ####[facility] [address] [place], [address] Sodium [Moles/Vol] 137 mmol/L Normal 136-145 [facility] Comment on above: Performed By: #### L 500.2500, L100.0500 ####[facility] [address] [place], [address] Urea nitrogen [Mass/Vol] 21 mg/dL High 7-18 [facility] Comment on above: Performed By: #### L 500.2500, L100.0500 ####[facility] [address] [place], [address] Blood urea nitrogen (BUN)/cr eatinine ratioOrdered By: Lesli Watkins on 04-16-2024 Urea nitrogen/Creatinine [Mass ratio] 31.0 mg/mg High 10-20 [facility] Blood urea nitrogen (BUN)/creatinine ratio 31.0 RATIO High 10-20 [facility] CBC-Complete Blood Cnt No Di ffon 04-16-2024 Erythrocyte distribution width (RBC) [Ratio] 13.0 % Normal 11.6-14.6 [facility] Comment on above: Performed By: #### L 500.2500, L100.0500 ####[facility] [address] [place], [address] Hematocrit (Bld) [Volume fraction] 36.8 % Low 37-47 [facility] Comment on above: Performed By: #### L 500.2500, L100.0500 ####[facility] [address] [place], [address] Hemoglobin (Bld) [Mass/Vol] 11.9 g/dL Low 12.0-15. 0 [facility] Comment on above: Performed By: #### L 500.2500, L100.0500 ####[facility] [address] [place], [address] MCH (RBC) [Entitic mass] 31.6 pg Normal 27.0-32.0 [facility] Comment on above: Performed By: #### L 500.2500, L100.0500 ####[facility] [address] [place], [address] MCHC (RBC) [Mass/Vol] 32.3 g/dL Normal 32-36 [facility] Comment on above: Performed By: #### L 500.2500, L100.0500 ####[facility] [address] [place], [address] MCV (RBC) [Entitic vol] 97.6 fL Normal 81-99 [facility] Comment on above: Performed By: #### L 500.2500, L100.0500 ####[facility] [address] [place], [address] Platelet mean volume (Bld) [Entitic vol] 8.8 fL Normal 6.2-12.0 [facility] Comment on above: Performed By: #### L 500.2500, L100.0500 ####[facility] [address] [place], [address] Platelets (Bld) [#/Vol] 252 10*3/uL Normal 150-450 [facility] Comment on above: Performed By: #### L 500.2500, L100.0500 ####[facility] [address] [place], [address] RBC (Bld) [#/Vol] 3.77 10*6/uL Low 4.2-5.4 [facility] Comment on above: Performed By: #### L 500.2500, L100.0500 ####[facility] [address] [place], [address] RDW SD 46.3 fl High 35.1-43.9 [facility] Comment on above: Performed By: #### L 500.2500, L100.0500 ####[facility] [address] [place], [address] WBC (Bld) [#/Vol] 8.7 10*3/uL Normal 4.4-11.0 [facility] Comment on above: Performed By: #### L 500.2500, L100.0500 ####[facility] [address] [place], [address] Calcium [Mass/Vol]Ordered By : Lesli Watkins on 04-16-2024 Serum or plasma calcium measurement (mass/volume) 9.3 mg/dL 8.5-10.1 [facility] Carbon dioxide measurementOr dered By: Lesli Watkins on 04-16-2024 CO2 [Moles/Vol] 25.0 mmol/L 21.0-32.0 [facility] Carbon dioxide measurement 25.0 mmol/L 21.0-32. 0 [facility] Chloride measurementOrdered By: Lesli Watkins on 04-16-2024 Chloride [Moles/Vol] 107 mmol/L 98-107 [facility] Chloride measurement 107 mmol/L 98-107 [facility] Creatinine [Mass/Vol]Ordered By: Lesli Watkins on 04-16-2024 Serum or plasma creatinine measurement (mass/volume) 0.68 mg/dL 0.55-1.02 [facility] Erythrocyte distribution wid th (RBC) [Ratio]Ordered By: Lesli Watkins on 04-16-2024 Erythrocyte distribution width ratio 13.0 % 11.6-14.6 [facility] Erythrocyte distribution width (RBC) [Entitic vol] 46.3 fL High 35.1-43.9 [facility] Erythrocyte distribution width standard deviation 46.3 fl High 35.1-43.9 [facility] Erythrocyte distribution wid th ratioOrdered By: Lesli Watkins on 04-16-2024 Erythrocyte distribution width (RBC) [Ratio] 13.0 % 11.6-14.6 [facility] Erythrocyte distribution wid th standard deviationOrdered By: Lesli Watkins on 04-16-2024 Erythrocyte distribution width (RBC) [Ratio] 46.3 fl High 35.1-43.9 [facility] Estimated glomerular filtrat ion rate (GFR) AmericanOrdered By: Lesli Watkins on 04-16-2024 Estimated GFR (MDRD) Amer 108 mL/min >60 [facility] Comment on above: GFR Calc Estimated glomerular filtration rate (GFR) 108 mL/min >60 [facility] Estimation of creatinine bharat aranceOrdered By: Lesli Watkins on 04-16-2024 Estimated Creatinine Clearance Calc 50.81 ml/min [facility] Estimation of creatinine clearance 50.81 ml/min [facility] Glomerular filtration rate ( GFR) estimationOrdered By: Lesli Watkins on 04-16-2024 Estimated GFR (MDRD) Non-Af Amer 89 mL/min >60 [facility] Comment on above: Non- GFR Calc GFR/1.73 sq M.predicted among non-blacks MDRD (S/P/Bld) [Vol rate/Area] 89 mL/min/{1.73_m2} >60 [facility] Glomerular filtration rate (GFR) estimation 89 mL/min >60 [facility] Glucose measurementOrdered B y: Lesli Watkins on 04-16-2024 Glucose [Mass/Vol] 113 mg/dL High 74-106 [facility] Comment on above: Fasting Glucose resu lt from 100 to 125 mg/dL suggests IMPAIRED HOMEOSTASIS per A.D.A. criteria. Glucose measurement 113 mg/dL High 74-106 [facility] Hematocrit Auto (Bld) [Volum e fraction]Ordered By: Lesli Watkins on 04-16-2024 Hematocrit (Bld) [Volume fraction] 36.8 % Low 37-47 [facility] Automated blood hematocrit (percentage) 36.8 % Low 37-47 [facility] Hemoglobin measurementOrdere d By: Lesli Watkins on 04-16-2024 Hemoglobin (Bld) [Mass/Vol] 11.9 g/dL Low 12.0-15. 0 [facility] Hemoglobin measurement 11.9 g/dL Low 12.0-15.0 [facility] MCV (RBC) [Entitic vol]Order ed By: Lesli Watkins on 04-16-2024 MCV (mean corpuscular volume) determination 97.6 fL 81-99 [facility] MCV (mean corpuscular volume ) determinationOrdered By: Lesli Watkins on 04-16-2024 MCV (RBC) [Entitic vol] 97.6 fL 81-99 [facility] Mean corpuscular hemoglobin (MCH) determinationOrdered By: Lesli Watkins on 04-16-2024 MCH (RBC) [Entitic mass] 31.6 pg 27.0-32.0 [facility] Mean corpuscular hemoglobin (MCH) determination 31.6 pg 27.0-32.0 [facility] Mean corpuscular hemoglobin concentration (MCHC) determinationOrdered By: Lesli Watkins on 04-16-2024 MCHC (RBC) [Mass/Vol] 32.3 g/dL 32-36 [facility] Mean corpuscular hemoglobin concentration (MCHC) determination 32.3 g/dL -36 [facility] Mean platelet volume determi nationOrdered By: Lesli Watkins on 04-16-2024 Platelet mean volume (Bld) [Entitic vol] 8.8 fL 6.2-12.0 [facility] Mean platelet volume determination 8.8 fl 6.2-12.0 [facility] Platelet countOrdered By: Gaby Watkins on 04-16-2024 Platelets (Bld) [#/Vol] 252 10*3/uL 150-450 [facility] Platelet count 252 K/mm3 150-450 [facility] Potassium measurementOrdered By: Lesli Watkins on 04-16-2024 Potassium [Moles/Vol] 4.5 mmol/L 3.5-5.1 [facility] Potassium measurement 4.5 mmol/L 3.5-5.1 [facility] RBC Auto (Bld) [#/Vol]Ordere d By: Lesli Watkins on 04-16-2024 RBC (Bld) [#/Vol] 3.77 10*6/uL Low 4.2-5.4 [facility] Automated blood erythrocyte count 3.77 M/mm3 Low 4.2-5.4 [facility] Serum anion gap measurementO rdered By: Lesli Watkins on 04-16-2024 Anion gap [Moles/Vol] 5 mmol/L 08-12 [facility] Serum anion gap measurement 5 08-12 [facility] Serum or plasma calcium gianluca urement (mass/volume)Ordered By: Lesli Watkins on 04-16-2024 Calcium [Mass/Vol] 9.3 mg/dL 8.5-10.1 [facility] Serum or plasma creatinine m easurement (mass/volume)Ordered By: Lesli Watkins on 04-16-2024 Creatinine [Mass/Vol] 0.68 mg/dL 0.55-1.02 [facility] Comment on above: The validity of the calculated GFR & GFRAA in patients over 70 years has not been determined. Clinical correlation is essential. Serum or plasma urea nitroge n measurement (mass/volume)Ordered By: Lesli Watkins on 04-16-2024 Urea nitrogen [Mass/Vol] 21 mg/dL High 10-15 [facility] Sodium levelOrdered By: Zeus Watkins on 04-16-2024 Sodium [Moles/Vol] 137 mmol/L 136-145 [facility] Sodium level 137 mmol/L 136-145 [facility] Urea nitrogen [Mass/Vol]Orde red By: Lesli Watkins on 04-16-2024 Serum or plasma urea nitrogen measurement (mass/volume) 21 mg/dL High 10-15 [facility] White blood cell (WBC) count Ordered By: Lesli Watkins on 04-16-2024 WBC (Bld) [#/Vol] 8.7 10*3/uL 4.4-11.0 [facility] White blood cell (WBC) count 8.7 K/mm3 4.4-11.0 [facility] Basic Metabolic Profile (BMP )on 04-15-2024 BUN/CRE 27.9 RATIO High 10-20 [facility] Comment on above: Performed By: #### L 500.2500, L100.0500 ####[facility] [address] [place], [place], [address] CA,Total 9.2 mg/dL Normal 8.5-10.1 [facility] Comment on above: Performed By: #### L 500.2500, L100.0500 ####[facility] [address] [place], [address] Chloride [Moles/Vol] 107 mmol/L Normal 98-107 [facility] Comment on above: Performed By: #### L 500.2500, L100.0500 ####[facility] [address] [place], [address] CO2 [Moles/Vol] 26.0 mmol/L Normal 21.0-32.0 [facility] Comment on above: Performed By: #### L 500.2500, L100.0500 ####[facility] [address] [place], [address] Creatinine [Mass/Vol] 0.68 mg/dL Normal 0.55-1.02 [facility] Comment on above: Result Comment: The validity of the calculated GFR GFRAA in patients over70 years has not been determined. Clinical correlation isessential. Performed By: #### L 500.2500, L100.0500 ####[facility] [address] [place], [address] ECRCL 50.81 ml/min Normal [facility] Comment on above: Performed By: #### L 500.2500, L100.0500 ####[facility] [address] [place], [address] EST GFR - AA 107 mL/min Normal >60 [facility] Comment on above: Result Comment: Afri can Cymraes GFR Calc Performed By: #### L 500.2500, L100.0500 ####[facility] [address] [place], [address] GAP 5 Normal 5-15 [facility] Comment on above: Performed By: #### L 500.2500, L100.0500 ####[facility] [address] [place], [address] GFR/1.73 sq M.predicted among non-blacks MDRD (S/P/Bld) [Vol rate/Area] 89 mL/min/{1.73_m2} Normal >60 [facility] Comment on above: Result Comment: Non- GFR Calc Performed By: #### L 500.2500, L100.0500 ####[facility] [address] [place], [address] Glucose [Mass/Vol] 119 mg/dL High 74-106 [facility] Comment on above: Result Comment: Fast ing Glucose result from 100 to 125 mg/dLsuggests IMPAIRED HOMEOSTASIS per A.D.A. criteria. Performed By: #### L 500.2500, L100.0500 ####[facility] [address] [place], [address] Potassium [Moles/Vol] 4.4 mmol/L Normal 3.5-5.1 [facility] Comment on above: Performed By: #### L 500.2500, L100.0500 ####[facility] [address], [address] Sodium [Moles/Vol] 138 mmol/L Normal 136-145 [facility] Comment on above: Performed By: #### L 500.2500, L100.0500 ####[facility] [address] [place], [address] Urea nitrogen [Mass/Vol] 19 mg/dL High 7-18 [facility] Comment on above: Performed By: #### L 500.2500, L100.0500 ####[facility] [address] [place], [address] CBC-Complete Blood Cnt No Di ffon 04-15-2024 Erythrocyte distribution width (RBC) [Ratio] 13.0 % Normal 11.6-14.6 [facility] Comment on above: Performed By: #### L 500.2500, L100.0500 ####[facility] [address], [address] Hematocrit (Bld) [Volume fraction] 37.2 % Normal 37-47 [facility] Comment on above: Performed By: #### L 500.2500, L100.0500 ####[facility] [address] [place], [address] Hemoglobin (Bld) [Mass/Vol] 12.2 g/dL Normal 12.0-15. 0 [facility] Comment on above: Performed By: #### L 500.2500, L100.0500 ####[facility] [address] [place], [address] MCH (RBC) [Entitic mass] 31.9 pg Normal 27.0-32.0 [facility] Comment on above: Performed By: #### L 500.2500, L100.0500 ####[facility] [address] [place], [address] MCHC (RBC) [Mass/Vol] 32.8 g/dL Normal 32-36 [facility] Comment on above: Performed By: #### L 500.2500, L100.0500 ####[facility] [address] [place], [address] MCV (RBC) [Entitic vol] 97.4 fL Normal 81-99 [facility] Comment on above: Performed By: #### L 500.2500, L100.0500 ####[facility] [address] [place], [address] Platelet mean volume (Bld) [Entitic vol] 8.9 fL Normal 6.2-12.0 [facility] Comment on above: Performed By: #### L 500.2500, L100.0500 ####[facility] [address] [place], [address] Platelets (Bld) [#/Vol] 281 10*3/uL Normal 150-450 [facility] Comment on above: Performed By: #### L 500.2500, L100.0500 ####[facility] [address] [place], [address] RBC (Bld) [#/Vol] 3.82 10*6/uL Low 4.2-5.4 [facility] Comment on above: Performed By: #### L 500.2500, L100.0500 ####[facility] [address] [place], [address] RDW SD 46.1 fl High 35.1-43.9 [facility] Comment on above: Performed By: #### L 500.2500, L100.0500 ####[facility] [address] [place], [address] WBC (Bld) [#/Vol] 9.4 10*3/uL Normal 4.4-11.0 [facility] Comment on above: Performed By: #### L 500.2500, L100.0500 ####[facility] [address] [place], [address] 12 Lead EKGon 04-14-2024 12 Lead EKG Normal [facility] Basic Metabolic Profile (BMP )on 04-14-2024 BUN/CRE 25.0 RATIO High 10-20 [facility] Comment on above: Performed By: #### L 500.2500, L100.0500 ####[facility] [address] [place], [address] CA,Total 8.8 mg/dL Normal 8.5-10.1 [facility] Comment on above: Performed By: #### L 500.2500, L100.0500 ####[facility] [address] [place], [address] Chloride [Moles/Vol] 106 mmol/L Normal 98-107 [facility] Comment on above: Performed By: #### L 500.2500, L100.0500 ####[facility] [address] [place], [address] CO2 [Moles/Vol] 27.0 mmol/L Normal 21.0-32.0 [facility] Comment on above: Performed By: #### L 500.2500, L100.0500 ####[facility] [address] [place], [address] Creatinine [Mass/Vol] 0.80 mg/dL Normal 0.55-1.02 [facility] Comment on above: Result Comment: The validity of the calculated GFR GFRAA in patients over70 years has not been determined. Clinical correlation isessential. Performed By: #### L 500.2500, L100.0500 ####[facility] [address] [place], [address] ECRCL 50.81 ml/min Normal [facility] Comment on above: Performed By: #### L 500.2500, L100.0500 ####[facility] [address] [place], [address] EST GFR - AA 89 mL/min Normal >60 [facility] Comment on above: Result Comment: Afri can Cymraes GFR Calc Performed By: #### L 500.2500, L100.0500 ####[facility] [address] [place], [address] GAP 4 Low 5-15 [facility] Comment on above: Performed By: #### L 500.2500, L100.0500 ####[facility] [address] [place], [address] GFR/1.73 sq M.predicted among non-blacks MDRD (S/P/Bld) [Vol rate/Area] 74 mL/min/{1.73_m2} Normal >60 [facility] Comment on above: Result Comment: Non- GFR Calc Performed By: #### L 500.2500, L100.0500 ####[facility] [address] [place], [address] Glucose [Mass/Vol] 93 mg/dL Normal 74-106 [facility] Comment on above: Performed By: #### L 500.2500, L100.0500 ####[facility] [address] [place], [address] Potassium [Moles/Vol] 4.3 mmol/L Normal 3.5-5.1 [facility] Comment on above: Performed By: #### L 500.2500, L100.0500 ####[facility] [address] [place], [address] Sodium [Moles/Vol] 138 mmol/L Normal 136-145 [facility] Comment on above: Performed By: #### L 500.2500, L100.0500 ####[facility] [address] [place], [address] Urea nitrogen [Mass/Vol] 20 mg/dL High 7-18 [facility] Comment on above: Performed By: #### L 500.2500, L100.0500 ####[facility] [address] [place], [address] CBC-Complete Blood Cnt No Di ffon 04-14-2024 Erythrocyte distribution width (RBC) [Ratio] 13.1 % Normal 11.6-14.6 [facility] Comment on above: Performed By: #### L 500.2500, L100.0500 ####[facility] [address] [place], [address] Hematocrit (Bld) [Volume fraction] 36.1 % Low 37-47 [facility] Comment on above: Performed By: #### L 500.2500, L100.0500 ####[facility] [address] [place], [address] Hemoglobin (Bld) [Mass/Vol] 11.6 g/dL Low 12.0-15. 0 [facility] Comment on above: Performed By: #### L 500.2500, L100.0500 ####[facility] [address] [place], [address] MCH (RBC) [Entitic mass] 31.9 pg Normal 27.0-32.0 [facility] Comment on above: Performed By: #### L 500.2500, L100.0500 ####[facility] [address] [place], [address] MCHC (RBC) [Mass/Vol] 32.1 g/dL Normal 32-36 [facility] Comment on above: Performed By: #### L 500.2500, L100.0500 ####[facility] [address] [place], [address] MCV (RBC) [Entitic vol] 99.2 fL High 81-99 [facility] Comment on above: Performed By: #### L 500.2500, L100.0500 ####[facility] [address] [place], [address] Platelet mean volume (Bld) [Entitic vol] 9.0 fL Normal 6.2-12.0 [facility] Comment on above: Performed By: #### L 500.2500, L100.0500 ####[facility] [address] [place], [address] Platelets (Bld) [#/Vol] 269 10*3/uL Normal 150-450 [facility] Comment on above: Performed By: #### L 500.2500, L100.0500 ####[facility] [address] [place], [address] RBC (Bld) [#/Vol] 3.64 10*6/uL Low 4.2-5.4 [facility] Comment on above: Performed By: #### L 500.2500, L100.0500 ####[facility] [address], [address] RDW SD 47.4 fl High 35.1-43.9 [facility] Comment on above: Performed By: #### L 500.2500, L100.0500 ####[facility] [address] [place], [address] WBC (Bld) [#/Vol] 7.1 10*3/uL Normal 4.4-11.0 [facility] Comment on above: Performed By: #### L 500.2500, L100.0500 ####[facility] [address] [place], [address] Lumbar Spine 2 or 3 Viewson 04-14-2024 Lumbar Spine 2 or 3 Views Normal [facility] MR/POSTOP.ANEon 04-14-2024 MR/POSTOP.ANE Normal [facility] MR/PJMOMUDB6jl 04-14-2024 MR/POSTOPAN2 Normal [facility] Operative Reporton Operative Report Normal [facility] Basic Metabolic Profile (BMP )on 04-13-2024 BUN/CRE 25.7 RATIO High 10-20 [facility] Comment on above: Performed By: #### L 500.2500, L100.0500 ####[facility] [address], [address] CA,Total 9.0 mg/dL Normal 8.5-10.1 [facility] Comment on above: Performed By: #### L 500.2500, L100.0500 ####[facility] [address] [place], [address] Chloride [Moles/Vol] 107 mmol/L Normal 98-107 [facility] Comment on above: Performed By: #### L 500.2500, L100.0500 ####[facility] [address] [place], [address] CO2 [Moles/Vol] 27.0 mmol/L Normal 21.0-32.0 [facility] Comment on above: Performed By: #### L 500.2500, L100.0500 ####[facility] [address] [place], [address] Creatinine [Mass/Vol] 0.70 mg/dL Normal 0.55-1.02 [facility] Comment on above: Result Comment: The validity of the calculated GFR GFRAA in patients over70 years has not been determined. Clinical correlation isessential. Performed By: #### L 500.2500, L100.0500 ####[facility] [address] [place], [address] ECRCL 50.81 ml/min Normal [facility] Comment on above: Performed By: #### L 500.2500, L100.0500 ####[facility] [address] [place], [address] EST GFR - AA 104 mL/min Normal >60 [facility] Comment on above: Result Comment: Afri can Cymraes GFR Calc Performed By: #### L 500.2500, L100.0500 ####[facility] [address] [place], [address] GAP 5 Normal 5-15 [facility] Comment on above: Performed By: #### L 500.2500, L100.0500 ####[facility] [address] [place], [address] GFR/1.73 sq M.predicted among non-blacks MDRD (S/P/Bld) [Vol rate/Area] 86 mL/min/{1.73_m2} Normal >60 [facility] Comment on above: Result Comment: Non- GFR Calc Performed By: #### L 500.2500, L100.0500 ####[facility] [address] [place], [address] Glucose [Mass/Vol] 94 mg/dL Normal 74-106 [facility] Comment on above: Performed By: #### L 500.2500, L100.0500 ####[facility] [address] [place], [address] Potassium [Moles/Vol] 4.1 mmol/L Normal 3.5-5.1 [facility] Comment on above: Performed By: #### L 500.2500, L100.0500 ####[facility] [address] [place], [address] Sodium [Moles/Vol] 139 mmol/L Normal 136-145 [facility] Comment on above: Performed By: #### L 500.2500, L100.0500 ####[facility] [address], [address] Urea nitrogen [Mass/Vol] 18 mg/dL Normal 7-18 [facility] Comment on above: Performed By: #### L 500.2500, L100.0500 ####[facility] [address], [address] CBC-Complete Blood Cnt No Di ffon 04-13-2024 Erythrocyte distribution width (RBC) [Ratio] 13.1 % Normal 11.6-14.6 [facility] Comment on above: Performed By: #### L 500.2500, L100.0500 ####[facility] [address], [address] Hematocrit (Bld) [Volume fraction] 37.7 % Normal 37-47 [facility] Comment on above: Performed By: #### L 500.2500, L100.0500 ####[facility] [address] [place], [address] Hemoglobin (Bld) [Mass/Vol] 12.2 g/dL Normal 12.0-15. 0 [facility] Comment on above: Performed By: #### L 500.2500, L100.0500 ####[facility] [address], [address] MCH (RBC) [Entitic mass] 32.0 pg Normal 27.0-32.0 [facility] Comment on above: Performed By: #### L 500.2500, L100.0500 ####[facility] [address] [place], [address] MCHC (RBC) [Mass/Vol] 32.4 g/dL Normal 32-36 [facility] Comment on above: Performed By: #### L 500.2500, L100.0500 ####[facility] [address] [place], [address] MCV (RBC) [Entitic vol] 99.0 fL Normal 81-99 [facility] Comment on above: Performed By: #### L 500.2500, L100.0500 ####[facility] [address] [place], [address] Platelet mean volume (Bld) [Entitic vol] 9.0 fL Normal 6.2-12.0 [facility] Comment on above: Performed By: #### L 500.2500, L100.0500 ####[facility] [address] [place], [address] Platelets (Bld) [#/Vol] 267 10*3/uL Normal 150-450 [facility] Comment on above: Performed By: #### L 500.2500, L100.0500 ####[facility] [address] [place], [address] RBC (Bld) [#/Vol] 3.81 10*6/uL Low 4.2-5.4 [facility] Comment on above: Performed By: #### L 500.2500, L100.0500 ####[facility] [address] [place], [address] RDW SD 47.2 fl High 35.1-43.9 [facility] Comment on above: Performed By: #### L 500.2500, L100.0500 ####[facility] [address] [place], [address] WBC (Bld) [#/Vol] 6.6 10*3/uL Normal 4.4-11.0 [facility] Comment on above: Performed By: #### L 500.2500, L100.0500 ####[facility] [address] [place], [address] Spine Lumbar (Routine)on Spine Lumbar (Routine) Normal [facility] Absolute lymphocyte countOrd ered By: Lesli Watkins on 04-12-2024 Lymphocytes Auto (Unsp spec) [#/Vol] 1.50 10*3/uL 0.83-4.51 [facility] Absolute neutrophil countOrd ered By: Lesli Watkins on 04-12-2024 Neutrophils (Bld) [#/Vol] 4.5 10*3/uL 2.0-7.7 [facility] Absolute neutrophil count 4.5 X10^3/uL 2.0-7.7 [facility] Automated lymphocyte count a s percentage of total leukocytesOrdered By: Lesli Watkins on 04-12-2024 Lymphocytes/100 WBC Auto (Unsp spec) 21.6 % 19-41 [facility] Basic Metabolic Profile (BMP )on 04-12-2024 BUN/CRE 18.6 RATIO Normal 10-20 [facility] Comment on above: Performed By: #### L 300.3900, L501.9520, L500.2500, L100.0100, L501.5200 ####[facility] [address] [place], [address] CA,Total 9.0 mg/dL Normal 8.5-10.1 [facility] Comment on above: Performed By: #### L 300.3900, L501.9520, L500.2500, L100.0100, L501.5200 ####[facility] [address] [place], [address] Chloride [Moles/Vol] 107 mmol/L Normal 98-107 [facility] Comment on above: Performed By: #### L 300.3900, L501.9520, L500.2500, L100.0100, L501.5200 ####[facility] [address] [place], [address] CO2 [Moles/Vol] 26.0 mmol/L Normal 21.0-32.0 [facility] Comment on above: Performed By: #### L 300.3900, L501.9520, L500.2500, L100.0100, L501.5200 ####[facility] [address] [place], [address] Creatinine [Mass/Vol] 0.81 mg/dL Normal 0.55-1.02 [facility] Comment on above: Result Comment: The validity of the calculated GFR GFRAA in patients over70 years has not been determined. Clinical correlation isessential. Performed By: #### L 300.3900, L501.9520, L500.2500, L100.0100, L501.5200 ####[facility] [address] [place], [address] ECRCL 50.18 ml/min Normal [facility] Comment on above: Performed By: #### L 300.3900, L501.9520, L500.2500, L100.0100, L501.5200 ####[facility] [address] [place], [address] EST GFR - AA 88 mL/min Normal >60 [facility] Comment on above: Result Comment: Afri can Cymraes GFR Calc Performed By: #### L 300.3900, L501.9520, L500.2500, L100.0100, L501.5200 ####[facility] [address] [place], [address] GAP 6 Normal 5-15 [facility] Comment on above: Performed By: #### L 300.3900, L501.9520, L500.2500, L100.0100, L501.5200 ####[facility] [address] [place], [address] GFR/1.73 sq M.predicted among non-blacks MDRD (S/P/Bld) [Vol rate/Area] 73 mL/min/{1.73_m2} Normal >60 [facility] Comment on above: Result Comment: Non- GFR Calc Performed By: #### L 300.3900, L501.9520, L500.2500, L100.0100, L501.5200 ####[facility] [address] [place], [address] Glucose [Mass/Vol] 95 mg/dL Normal 74-106 [facility] Comment on above: Performed By: #### L 300.3900, L501.9520, L500.2500, L100.0100, L501.5200 ####[facility] [address] [place], [address] Potassium [Moles/Vol] 4.4 mmol/L Normal 3.5-5.1 [facility] Comment on above: Performed By: #### L 300.3900, L501.9520, L500.2500, L100.0100, L501.5200 ####[facility] [address] [place], [address] Sodium [Moles/Vol] 138 mmol/L Normal 136-145 [facility] Comment on above: Performed By: #### L 300.3900, L501.9520, L500.2500, L100.0100, L501.5200 ####[facility] [address] [place], [address] Urea nitrogen [Mass/Vol] 15 mg/dL Normal 7-18 [facility] Comment on above: Performed By: #### L 300.3900, L501.9520, L500.2500, L100.0100, L501.5200 ####[facility] [address] [place], [address] Basophil percentageOrdered B y: Lesli Watkins on 04-12-2024 Basophils/100 WBC (Bld) 0.6 % 0-1 [facility] Basophil percentage 0.6 % 0-1 [facility] CBC W/Diff, Automatedon 03-31 Absolute Lymph 1.50 X10 3/uL Normal 0.83-4.51 [facility] Comment on above: Performed By: #### L 300.3900, L501.9520, L500.2500, L100.0100, L501.5200 ####[facility] [address] [place], [address] Absolute Neut 4.5 X10 3/uL Normal 2.0-7.7 [facility] Comment on above: Performed By: #### L 300.3900, L501.9520, L500.2500, L100.0100, L501.5200 ####[facility] [address] [place], [address] Basophils/100 WBC (Bld) 0.6 % Normal 0-1 [facility] Comment on above: Performed By: #### L 300.3900, L501.9520, L500.2500, L100.0100, L501.5200 ####[facility] [address] [place], [address] Eosinophils/100 WBC (Bld) 1.3 % Normal 0-5 [facility] Comment on above: Performed By: #### L 300.3900, L501.9520, L500.2500, L100.0100, L501.5200 ####[facility] [address] [place], [address] Erythrocyte distribution width (RBC) [Ratio] 13.1 % Normal 11.6-14.6 [facility] Comment on above: Performed By: #### L 300.3900, L501.9520, L500.2500, L100.0100, L501.5200 ####[facility] [address] [place], [address] Hematocrit (Bld) [Volume fraction] 39.0 % Normal 37-47 [facility] Comment on above: Performed By: #### L 300.3900, L501.9520, L500.2500, L100.0100, L501.5200 ####[facility] [address] [place], [address] Hemoglobin (Bld) [Mass/Vol] 12.5 g/dL Normal 12.0-15. 0 [facility] Comment on above: Performed By: #### L 300.3900, L501.9520, L500.2500, L100.0100, L501.5200 ####[facility] [address] [place], [address] IG% 0.400 Normal 0.0-0.9 [facility] Comment on above: Result Comment: IG% - Immature Granulocytes (promyelocytes, myelocytes andmetamyelocytes) > 1% indicates that a LEFT SHIFT is Present. Performed By: #### L 300.3900, L501.9520, L500.2500, L100.0100, L501.5200 ####[facility] [address] [place], [address] Lymphocytes/100 WBC (Bld) 21.6 % Normal 19-41 [facility] Comment on above: Performed By: #### L 300.3900, L501.9520, L500.2500, L100.0100, L501.5200 ####[facility] [address] [place], [address] MCH (RBC) [Entitic mass] 31.7 pg Normal 27.0-32.0 [facility] Comment on above: Performed By: #### L 300.3900, L501.9520, L500.2500, L100.0100, L501.5200 ####[facility] [address] [place], [address] MCHC (RBC) [Mass/Vol] 32.1 g/dL Normal 32-36 [facility] Comment on above: Performed By: #### L 300.3900, L501.9520, L500.2500, L100.0100, L501.5200 ####[facility] [address] [place], [address] MCV (RBC) [Entitic vol] 99.0 fL Normal 81-99 [facility] Comment on above: Performed By: #### L 300.3900, L501.9520, L500.2500, L100.0100, L501.5200 ####[facility] [address] [place], [address] Monocytes/100 WBC (Bld) 10.9 % High 0-10 [facility] Comment on above: Performed By: #### L 300.3900, L501.9520, L500.2500, L100.0100, L501.5200 ####[facility] [address] [place], [address] Neutrophils/100 WBC (Bld) 65.2 % Normal 47-70 [facility] Comment on above: Performed By: #### L 300.3900, L501.9520, L500.2500, L100.0100, L501.5200 ####[facility] [address] [place], [address] Nucleated RBC (Bld) [#/Vol] 0 10*3/uL Normal 0-5 [facility] Comment on above: Performed By: #### L 300.3900, L501.9520, L500.2500, L100.0100, L501.5200 ####[facility] [address] [place], [address] Platelet mean volume (Bld) [Entitic vol] 8.8 fL Normal 6.2-12.0 [facility] Comment on above: Performed By: #### L 300.3900, L501.9520, L500.2500, L100.0100, L501.5200 ####[facility] [address] [place], [address] Platelets (Bld) [#/Vol] 291 10*3/uL Normal 150-450 [facility] Comment on above: Performed By: #### L 300.3900, L501.9520, L500.2500, L100.0100, L501.5200 ####[facility] [address] [place], [address] RBC (Bld) [#/Vol] 3.94 10*6/uL Low 4.2-5.4 [facility] Comment on above: Performed By: #### L 300.3900, L501.9520, L500.2500, L100.0100, L501.5200 ####[facility] [address] [place], [address] RDW SD 47.5 fl High 35.1-43.9 [facility] Comment on above: Performed By: #### L 300.3900, L501.9520, L500.2500, L100.0100, L501.5200 ####[facility] [address] [place], [address] WBC (Bld) [#/Vol] 7.0 10*3/uL Normal 4.4-11.0 [facility] Comment on above: Performed By: #### L 300.3900, L501.9520, L500.2500, L100.0100, L501.5200 ####[facility] [address] [place], [place], [id number] Eosinophil percentageOrdered By: Lesli Watkins on 04-12-2024 Eosinophils/100 WBC (Bld) 1.3 % 0-5 [facility] Eosinophil percentage 1.3 % 0-5 [facility] Immature granulocytes/100 WB C Auto (Bld)Ordered By: Lesli Watkins on 04-12-2024 Immature granulocytes/100 WBC (Bld) 0.400 % 0.0-0.9 [facility] Comment on above: IG% - Immature Granu locytes (promyelocytes, myelocytes and metamyelocytes) > 1% indicates that a LEFT SHIFT is Present. Automated immature granulocyte percentage 0.400 % 0.0-0.9 [facility] International normalized rat io (INR) calculationOrdered By: Lesli Watkins on 04-12-2024 INR Coag (Bld) [Relative time] 1.0 {INR} [facility] International normalized ratio (INR) calculation 1.0 [facility] Lymphocytes Auto (Unsp spec) [#/Vol]Ordered By: Lesli Watkins on 04-12-2024 Lymphocytes (Bld) [#/Vol] 1.50 10*3/uL 0.83-4.5 1 [facility] Absolute lymphocyte count 1.50 X10^3/uL 0.83-4. 51 [facility] Lymphocytes/100 WBC Auto (Un sp spec)Ordered By: Lesli Watkins on 04-12-2024 Lymphocytes/100 WBC (Bld) 21.6 % [facility] Automated lymphocyte count as percentage of total leukocytes 21.6 % [facility] Magnesiumon 04-12-2024 Magnesium [Mass/Vol] 2.3 mg/dL Normal 1.6-2.6 [facility] Comment on above: Performed By: #### L 300.3900, L501.9520, L500.2500, L100.0100, L501.5200 ####[facility] [address] [place], [address] Magnesium measurementOrdered By: Lesli Watkins on 04-12-2024 Magnesium [Mass/Vol] 2.3 mg/dL 1.6-2.6 [facility] Magnesium measurement 2.3 mg/dL 1.6-2.6 [facility] Monocyte percentageOrdered B y: Lesli Watkins on 04-12-2024 Monocytes/100 WBC (Bld) 10.9 % High 0-10 [facility] Monocyte percentage 10.9 % High 0-10 [facility] Neutrophil percentageOrdered By: Lesli Watkins on 04-12-2024 Neutrophils/100 WBC (Bld) 65.2 % 47-70 [facility] Neutrophil percentage 65.2 % 47-70 [facility] Nucleated red blood cell per centageOrdered By: Lesli Watkins on 04-12-2024 Nucleated RBC/100 WBC (Bld) [Ratio] 0 % 0-5 [facility] Nucleated red blood cell percentage 0 % 0-5 [facility] Prothrombin Time w/INRon INR Coag (PPP) [Relative time] 1.0 {INR} Normal [facility] Comment on above: Performed By: #### L 300.3900, L501.9520, L500.2500, L100.0100, L501.5200 ####[facility] [address] [place], [place], [id number] PT Coag (PPP) [Time] 13.8 s Normal 11.7-14.9 [facility] Comment on above: Performed By: #### L 300.3900, L501.9520, L500.2500, L100.0100, L501.5200 ####[facility] [address] [place], [address] Prothrombin timeOrdered By: Lesli Watkins on 04-12-2024 PT Coag (PPP) [Time] 13.8 s 11.7-14.9 [facility] Prothrombin time 13.8 SECONDS 11.7-14.9 [facility] Serum or plasma thyroid stim ulating hormone (TSH) measurement (units/volume)Ordered By: Lesli Watkins on 04-12-2024 TSH Qn 0.856 uIU/mL 0.358-3.740 [facility] TSH QnOrdered By: Lesli mccoy on 04-12-2024 Thyroid Stimulating Hormone (TSH) 0.856 uIU/mL 0.358-3.740 [facility] Serum or plasma thyroid stimulating hormone (TSH) measurement (units/volume) 0.856 uIU/mL 0.358-3.740 [facility] Thyroid Stim Hormone (TSH)on 04-12-2024 TSH 0.856 uIU/mL Normal 0.358-3.740 [facility] Comment on above: Performed By: #### L 300.3900, L501.9520, L500.2500, L100.0100, L501.5200 ####[facility] [address] [place], [address] Transvaginal Non-on 04-12-2024 Transvaginal Non- Normal [facility] Basic Metabolic Profile (BMP )on 04-11-2024 BUN/CRE 18.3 RATIO Normal 10-20 [facility] Comment on above: Performed By: #### L 100.0100, L500.2500 ####[facility] [address] [place], [address] CA,Total 9.1 mg/dL Normal 8.5-10.1 [facility] Comment on above: Performed By: #### L 100.0100, L500.2500 ####[facility] [address] [place], [address] Chloride [Moles/Vol] 103 mmol/L Normal 98-107 [facility] Comment on above: Performed By: #### L 100.0100, L500.2500 ####[facility] [address] [place], [address] CO2 [Moles/Vol] 27.0 mmol/L Normal 21.0-32.0 [facility] Comment on above: Performed By: #### L 100.0100, L500.2500 ####[facility] [address] [place], [address] Creatinine [Mass/Vol] 0.76 mg/dL Normal 0.55-1.02 [facility] Comment on above: Result Comment: The validity of the calculated GFR GFRAA in patients over70 years has not been determined. Clinical correlation isessential. Performed By: #### L 100.0100, L500.2500 ####[facility] [address] [place], [address] ECRCL 53.96 ml/min Normal [facility] Comment on above: Performed By: #### L 100.0100, L500.2500 ####[facility] [address] [place], [address] EST GFR - AA 94 mL/min Normal >60 [facility] Comment on above: Result Comment: Afri can Cymraes GFR Calc Performed By: #### L 100.0100, L500.2500 ####[facility] [address] [place], [address] GAP 6 Normal 5-15 [facility] Comment on above: Performed By: #### L 100.0100, L500.2500 ####[facility] [address] [place], [address] GFR/1.73 sq M.predicted among non-blacks MDRD (S/P/Bld) [Vol rate/Area] 78 mL/min/{1.73_m2} Normal >60 [facility] Comment on above: Result Comment: Non- GFR Calc Performed By: #### L 100.0100, L500.2500 ####[facility] [address] [place], [address] Glucose [Mass/Vol] 97 mg/dL Normal 74-106 [facility] Comment on above: Performed By: #### L 100.0100, L500.2500 ####[facility] [address] [place], [address] Potassium [Moles/Vol] 4.2 mmol/L Normal 3.5-5.1 [facility] Comment on above: Performed By: #### L 100.0100, L500.2500 ####[facility] [address] [place], [address] Sodium [Moles/Vol] 136 mmol/L Normal 136-145 [facility] Comment on above: Performed By: #### L 100.0100, L500.2500 ####[facility] [address] [place], [address] Urea nitrogen [Mass/Vol] 14 mg/dL Normal 7-18 [facility] Comment on above: Performed By: #### L 100.0100, L500.2500 ####[facility] [address] [place], [address] CBC W/Diff, Automatedon 03-31 Absolute Lymph 1.21 X10 3/uL Normal 0.83-4.51 [facility] Comment on above: Performed By: #### L 100.0100, L500.2500 ####[facility] [address] [place], [address] Absolute Neut 5.9 X10 3/uL Normal 2.0-7.7 [facility] Comment on above: Performed By: #### L 100.0100, L500.2500 ####[facility] [address] [place], [address] Basophils/100 WBC (Bld) 0.7 % Normal 0-1 [facility] Comment on above: Performed By: #### L 100.0100, L500.2500 ####[facility] [address] [place], [address] Eosinophils/100 WBC (Bld) 1.0 % Normal 0-5 [facility] Comment on above: Performed By: #### L 100.0100, L500.2500 ####[facility] [address] [place], [address] Erythrocyte distribution width (RBC) [Ratio] 13.0 % Normal 11.6-14.6 [facility] Comment on above: Performed By: #### L 100.0100, L500.2500 ####[facility] [address] [place], [address] Hematocrit (Bld) [Volume fraction] 38.0 % Normal 37-47 [facility] Comment on above: Performed By: #### L 100.0100, L500.2500 ####[facility] [address] [place], [address] Hemoglobin (Bld) [Mass/Vol] 12.7 g/dL Normal 12.0-15. 0 [facility] Comment on above: Performed By: #### L 100.0100, L500.2500 ####[facility] [address] [place], [address] IG% 0.400 Normal 0.0-0.9 [facility] Comment on above: Result Comment: IG% - Immature Granulocytes (promyelocytes, myelocytes andmetamyelocytes) > 1% indicates that a LEFT SHIFT is Present. Performed By: #### L 100.0100, L500.2500 ####[facility] [address] [place], [address] Lymphocytes/100 WBC (Bld) 15.1 % Low 19-41 [facility] Comment on above: Performed By: #### L 100.0100, L500.2500 ####[facility] [address] [place], [address] MCH (RBC) [Entitic mass] 32.4 pg High 27.0-32.0 [facility] Comment on above: Performed By: #### L 100.0100, L500.2500 ####[facility] [address] [place], [address] MCHC (RBC) [Mass/Vol] 33.4 g/dL Normal 32-36 [facility] Comment on above: Performed By: #### L 100.0100, L500.2500 ####[facility] [address] [place], [address] MCV (RBC) [Entitic vol] 96.9 fL Normal 81-99 [facility] Comment on above: Performed By: #### L 100.0100, L500.2500 ####[facility] [address] [place], [address] Monocytes/100 WBC (Bld) 9.0 % Normal 0-10 [facility] Comment on above: Performed By: #### L 100.0100, L500.2500 ####[facility] [address] [place], [address] Neutrophils/100 WBC (Bld) 73.8 % High 47-70 [facility] Comment on above: Performed By: #### L 100.0100, L500.2500 ####[facility] [address] [place], [address] Nucleated RBC (Bld) [#/Vol] 0 10*3/uL Normal 0-5 [facility] Comment on above: Performed By: #### L 100.0100, L500.2500 ####[facility] [address] [place], [address] Platelet mean volume (Bld) [Entitic vol] 9.1 fL Normal 6.2-12.0 [facility] Comment on above: Performed By: #### L 100.0100, L500.2500 ####[facility] [address] [place], [address] Platelets (Bld) [#/Vol] 296 10*3/uL Normal 150-450 [facility] Comment on above: Performed By: #### L 100.0100, L500.2500 ####[facility] [address] [place], [address] RBC (Bld) [#/Vol] 3.92 10*6/uL Low 4.2-5.4 [facility] Comment on above: Performed By: #### L 100.0100, L500.2500 ####[facility] [address] [place], [address] RDW SD 46.2 fl High 35.1-43.9 [facility] Comment on above: Performed By: #### L 100.0100, L500.2500 ####[facility] [address] [place], [address] WBC (Bld) [#/Vol] 8.0 10*3/uL Normal 4.4-11.0 [facility] Comment on above: Performed By: #### L 100.0100, L500.2500 ####[facility] [address] [place], [address] Emergency Department Summary on 04-11-2024 Emergency Department Summary Normal [facility] H AND P Exam - Hospitaliston 04-11-2024 H&P Exam - Hospitalist Normal [facility] Lumbar Spine 2 or 3 Viewson 04-11-2024 Lumbar Spine 2 or 3 Views Normal [facility] Emergency Department Summary on 03-30-2024 Emergency Department Summary Normal [facility] HIP, UNI W/ Pelvis 2-3 Views on 03-30-2024 HIP, UNI W/ Pelvis 2-3 Views Normal [facility] Lumbar Spine 2 or 3 Viewson 03-30-2024 Lumbar Spine 2 or 3 Views Normal [facility] Brain/Head without Contrasto n 02-25-2024 Brain/Head without Contrast Normal [facility] Emergency Department Summary on 02-25-2024 Emergency Department Summary Normal [facility] Spine Cervical without Contr ason 02-25-2024 Spine Cervical without Contras Normal [facility] Gastroenterology Visit Repor ton 02-23-2024 Gastroenterology Visit Report Normal [facility] Re-Evaluation - PT (1)on Re-Evaluation - PT (1) Normal [facility] Dexa Bone Density/Append Ske sergio 01-08-2024 Dexa Bone Density/Append Skel Normal [facility] Inital Evaluation (1) - PTon 12-29-2023 Inital Evaluation (1) - PT Normal [facility] CBC W/Diff, Automatedon 11-29 Absolute Lymph 1.16 X10 3/uL Normal 0.83-4.51 [facility] Comment on above: Performed By: #### L 506.1000, L500.4050, L501.9520, L100.0100, L500.4100 ####[facility] [address] [place], [address] Absolute Neut 3.8 X10 3/uL Normal 2.0-7.7 [facility] Comment on above: Performed By: #### L 506.1000, L500.4050, L501.9520, L100.0100, L500.4100 ####[facility] [address] [place], [address] Basophils/100 WBC (Bld) 0.7 % Normal 0-1 [facility] Comment on above: Performed By: #### L 506.1000, L500.4050, L501.9520, L100.0100, L500.4100 ####[facility] [address] [place], [address] Eosinophils/100 WBC (Bld) 2.1 % Normal 0-5 [facility] Comment on above: Performed By: #### L 506.1000, L500.4050, L501.9520, L100.0100, L500.4100 ####[facility] [address] [place], [address] Erythrocyte distribution width (RBC) [Ratio] 13.0 % Normal 11.6-14.6 [facility] Comment on above: Performed By: #### L 506.1000, L500.4050, L501.9520, L100.0100, L500.4100 ####[facility] [address] [place], [address] Hematocrit (Bld) [Volume fraction] 40.5 % Normal 37-47 [facility] Comment on above: Performed By: #### L 506.1000, L500.4050, L501.9520, L100.0100, L500.4100 ####[facility] [address] [place], [address] Hemoglobin (Bld) [Mass/Vol] 12.8 g/dL Normal 12.0-15. 0 [facility] Comment on above: Performed By: #### L 506.1000, L500.4050, L501.9520, L100.0100, L500.4100 ####[facility] [address] [place], [address] IG% 0.500 Normal 0.0-0.9 [facility] Comment on above: Result Comment: IG% - Immature Granulocytes (promyelocytes, myelocytes andmetamyelocytes) > 1% indicates that a LEFT SHIFT is Present. Performed By: #### L 506.1000, L500.4050, L501.9520, L100.0100, L500.4100 ####[facility] [address] [place], [address] Lymphocytes/100 WBC (Bld) 20.4 % Normal 19-41 [facility] Comment on above: Performed By: #### L 506.1000, L500.4050, L501.9520, L100.0100, L500.4100 ####[facility] [address] [place], [address] MCH (RBC) [Entitic mass] 31.7 pg Normal 27.0-32.0 [facility] Comment on above: Performed By: #### L 506.1000, L500.4050, L501.9520, L100.0100, L500.4100 ####[facility] [address] [place], [address] MCHC (RBC) [Mass/Vol] 31.6 g/dL Low 32-36 [facility] Comment on above: Performed By: #### L 506.1000, L500.4050, L501.9520, L100.0100, L500.4100 ####[facility] [address] [place], [address] MCV (RBC) [Entitic vol] 100.2 fL High 81-99 [facility] Comment on above: Performed By: #### L 506.1000, L500.4050, L501.9520, L100.0100, L500.4100 ####[facility] [address] [place], [address] Monocytes/100 WBC (Bld) 9.3 % Normal 0-10 [facility] Comment on above: Performed By: #### L 506.1000, L500.4050, L501.9520, L100.0100, L500.4100 ####[facility] [address] [place], [address] Neutrophils/100 WBC (Bld) 67.0 % Normal 47-70 [facility] Comment on above: Performed By: #### L 506.1000, L500.4050, L501.9520, L100.0100, L500.4100 ####[facility] [address] [place], [address] Nucleated RBC (Bld) [#/Vol] 0 10*3/uL Normal 0-5 [facility] Comment on above: Performed By: #### L 506.1000, L500.4050, L501.9520, L100.0100, L500.4100 ####[facility] [address] [place], [address] Platelet mean volume (Bld) [Entitic vol] 9.3 fL Normal 6.2-12.0 [facility] Comment on above: Performed By: #### L 506.1000, L500.4050, L501.9520, L100.0100, L500.4100 ####[facility] [address] [place], [address] Platelets (Bld) [#/Vol] 213 10*3/uL Normal 150-450 [facility] Comment on above: Performed By: #### L 506.1000, L500.4050, L501.9520, L100.0100, L500.4100 ####[facility] [address] [place], [address] RBC (Bld) [#/Vol] 4.04 10*6/uL Low 4.2-5.4 [facility] Comment on above: Performed By: #### L 506.1000, L500.4050, L501.9520, L100.0100, L500.4100 ####[facility] [address] [place], [address] RDW SD 48.1 fl High 35.1-43.9 [facility] Comment on above: Performed By: #### L 506.1000, L500.4050, L501.9520, L100.0100, L500.4100 ####[facility] [address] [place], [address] WBC (Bld) [#/Vol] 5.7 10*3/uL Normal 4.4-11.0 [facility] Comment on above: Performed By: #### L 506.1000, L500.4050, L501.9520, L100.0100, L500.4100 ####[facility] [address] [place], [address] Comprehensive Metabolic Prof irina 12-15-2023 Albumin [Mass/Vol] 3.4 g/dL Normal 3.2-5.0 [facility] Comment on above: Performed By: #### L 506.1000, L500.4050, L501.9520, L100.0100, L500.4100 ####[facility] [address] [place], [address] Albumin/Globulin [Mass ratio] 0.8 {ratio} Low 0.9-2.4 [facility] Comment on above: Performed By: #### L 506.1000, L500.4050, L501.9520, L100.0100, L500.4100 ####[facility] [address] [place], [address] ALK P 76 U/L Normal 45-117 [facility] Comment on above: Performed By: #### L 506.1000, L500.4050, L501.9520, L100.0100, L500.4100 ####[facility] [address] [place], [address] ALT [Catalytic activity/Vol] 22 U/L Normal 13-56 [facility] Comment on above: Performed By: #### L 506.1000, L500.4050, L501.9520, L100.0100, L500.4100 ####[facility] [address] [place], [address] AST [Catalytic activity/Vol] 20 U/L Normal 15-37 [facility] Comment on above: Performed By: #### L 506.1000, L500.4050, L501.9520, L100.0100, L500.4100 ####[facility] [address] [place], [address] Bilirubin [Mass/Vol] 0.40 mg/dL Normal 0.20-1.00 [facility] Comment on above: Result Comment: For patients on eltrombopag therapy, use of Dimension [place] TBIL is not recommended. Performed By: #### L 506.1000, L500.4050, L501.9520, L100.0100, L500.4100 ####[facility] [address] [place], [address] BUN/CRE 25.6 RATIO High 10-20 [facility] Comment on above: Performed By: #### L 506.1000, L500.4050, L501.9520, L100.0100, L500.4100 ####[facility] [address] [place], [address] CA,Total 9.4 mg/dL Normal 8.5-10.1 [facility] Comment on above: Performed By: #### L 506.1000, L500.4050, L501.9520, L100.0100, L500.4100 ####[facility] [address] [place], [address] Chloride [Moles/Vol] 103 mmol/L Normal 98-107 [facility] Comment on above: Performed By: #### L 506.1000, L500.4050, L501.9520, L100.0100, L500.4100 ####[facility] [address] [place], [address] CO2 [Moles/Vol] 29.0 mmol/L Normal 21.0-32.0 [facility] Comment on above: Performed By: #### L 506.1000, L500.4050, L501.9520, L100.0100, L500.4100 ####[facility] [address] [place], [address] Creatinine [Mass/Vol] 0.78 mg/dL Normal 0.55-1.02 [facility] Comment on above: Result Comment: The validity of the calculated GFR GFRAA in patients over70 years has not been determined. Clinical correlation isessential. Performed By: #### L 506.1000, L500.4050, L501.9520, L100.0100, L500.4100 ####[facility] [address] [place], [address] EST GFR - AA 92 mL/min Normal >60 [facility] Comment on above: Result Comment: Afri can Cymraes GFR Calc Performed By: #### L 506.1000, L500.4050, L501.9520, L100.0100, L500.4100 ####[facility] [address] [place], [address] GAP 6 Normal 5-15 [facility] Comment on above: Performed By: #### L 506.1000, L500.4050, L501.9520, L100.0100, L500.4100 ####[facility] [address] [place], [address] GFR/1.73 sq M.predicted among non-blacks MDRD (S/P/Bld) [Vol rate/Area] 76 mL/min/{1.73_m2} Normal >60 [facility] Comment on above: Result Comment: Non- GFR Calc Performed By: #### L 506.1000, L500.4050, L501.9520, L100.0100, L500.4100 ####[facility] [address] [place], [address] Globulin (S) [Mass/Vol] 4.2 g/dL Normal 2.2-4.2 [facility] Comment on above: Performed By: #### L 506.1000, L500.4050, L501.9520, L100.0100, L500.4100 ####[facility] [address] [place], [address] Glucose [Mass/Vol] 100 mg/dL Normal 74-106 [facility] Comment on above: Result Comment: Fast ing Glucose result from 100 to 125 mg/dLsuggests IMPAIRED HOMEOSTASIS per A.D.A. criteria. Performed By: #### L 506.1000, L500.4050, L501.9520, L100.0100, L500.4100 ####[facility] [address] [place], [address] Potassium [Moles/Vol] 4.2 mmol/L Normal 3.5-5.1 [facility] Comment on above: Performed By: #### L 506.1000, L500.4050, L501.9520, L100.0100, L500.4100 ####[facility] [address] [place], [address] Sodium [Moles/Vol] 138 mmol/L Normal 136-145 [facility] Comment on above: Performed By: #### L 506.1000, L500.4050, L501.9520, L100.0100, L500.4100 ####[facility] [address] [place], [address] T PROT 7.6 g/dL Normal 6.4-8.2 [facility] Comment on above: Performed By: #### L 506.1000, L500.4050, L501.9520, L100.0100, L500.4100 ####[facility] [address] [place], [address] Urea nitrogen [Mass/Vol] 20 mg/dL High 7-18 [facility] Comment on above: Performed By: #### L 506.1000, L500.4050, L501.9520, L100.0100, L500.4100 ####[facility] [address] [place], [address] Lipid Profileon 12-15-2023 Cholesterol [Mass/Vol] 176 mg/dL Normal 200 [facility] Comment on above: Result Comment: <200 mg/dL Desirable 200-240 mg/dL Borderline >240 mg/dL High Risk Performed By: #### L 506.1000, L500.4050, L501.9520, L100.0100, L500.4100 ####[facility] [address] [place], [address] Cholesterol in HDL [Mass/Vol] 74 mg/dL Normal [facility] Comment on above: Result Comment: The drugs N-Acetylcysteine and Metamizole may falselydepress this assay. Reference Range HDL <40 mg/dL Low HDL Cholesterol HDL >or= 60 mg/dL High HDL Cholesterol Performed By: #### L 506.1000, L500.4050, L501.9520, L100.0100, L500.4100 ####[facility] [address] [place], [address] Cholesterol in LDL [Mass/Vol] 93 mg/dL Normal 0-130 [facility] Comment on above: Performed By: #### L 506.1000, L500.4050, L501.9520, L100.0100, L500.4100 ####[facility] [address] [place], [address] Cholesterol in VLDL [Mass/Vol] 9 mg/dL Normal 5-40 [facility] Comment on above: Performed By: #### L 506.1000, L500.4050, L501.9520, L100.0100, L500.4100 ####[facility] [address] [place], [address] Triglyceride [Mass/Vol] 46 mg/dL Normal [facility] Comment on above: Result Comment: The drugs N-Acetylcysteine and Metamizole may falselydepress this assay.Serum Triglycerides Reference Interval Normal <150 mg/dL Borderline high 150 - 199 mg/dL High 200 - 499 mg/dL Very High > or = 500 mg/dL Performed By: #### L 506.1000, L500.4050, L501.9520, L100.0100, L500.4100 ####[facility] [address] [place], [address] Thyroid Stim Hormone (TSH)on 12-15-2023 TSH 0.871 uIU/mL Normal 0.358-3.740 [facility] Comment on above: Performed By: #### L 506.1000, L500.4050, L501.9520, L100.0100, L500.4100 ####[facility] [address] [place], [address] Vitamin D,25 Hydroxyon 12-14 Vitamin D 25-OH 68.6 ng/mL Normal [facility] Comment on above: Result Comment: Yesenia min D 25(OH) Status Range Deficiency <20 ng/mL (50nmol/L) Insufficiency 20 - 30 ng/mL (50 - 75 nmol/L) Sufficiency 30 - 100 ng/mL (75 - 250 nmol/L) Toxicity >100 ng/mL (>250 nmol/L) Performed By: #### L 506.1000, L500.4050, L501.9520, L100.0100, L500.4100 ####[facility] [address] [place], [place], [address] Cerv Spine 4 or 5 Viewson Cerv Spine 4 or 5 Views Normal [facility] L/S Spine Min 4 Viewson 10-29 L/S Spine Min 4 Views Normal [facility] Orthopedic Visit Reporton Orthopedic Visit Report Normal [facility] Cardiology Visit Reporton Cardiology Visit Report Normal [facility] Absolute lymphocyte countOrd ered By: Michael Snowden on 05-28-2023 Lymphocytes Auto (Unsp spec) [#/Vol] 1.31 10*3/uL 0.83-4.51 [facility] Automated lymphocyte count a s percentage of total leukocytesOrdered By: Michael Snowden on 05-28-2023 Lymphocytes/100 WBC Auto (Unsp spec) 20.5 % 19-41 [facility] Basophil percentageOrdered B y: Michael Snowden on 05-28-2023 Basophils/100 WBC (Bld) 0.5 % 0-1 [facility] Bilirubin [Mass/Vol] 0.80 mg/dL 0.20-1.00 [facility] Comment on above: For patients on eltr ombopag therapy, use of [place] TBIL is not recommended. Chloride [Moles/Vol] 106 mmol/L 98-107 [facility] Cholesterol [Mass/Vol] 168 mg/dL <200 [facility] Comment on above: <200 mg/dL Desirable 200-240 mg/dL Borderline >240 mg/dL High Risk Eosinophils/100 WBC (Bld) 2.4 % 0-5 [facility] Glucose [Mass/Vol] 87 mg/dL 74-106 [facility] Hemoglobin (Bld) [Mass/Vol] 12.7 g/dL 12.0-15. 0 [facility] Monocytes/100 WBC (Bld) 8.9 % 0-10 [facility] Neutrophils (Bld) [#/Vol] 4.3 10*3/uL 2.0-7.7 [facility] Neutrophils/100 WBC (Bld) 67.4 % 47-70 [facility] Potassium [Moles/Vol] 4.0 mmol/L 3.5-5.1 [facility] Protein [Mass/Vol] 7.6 g/dL 6.4-8.2 [facility] Sodium [Moles/Vol] 139 mmol/L 136-145 [facility] Triglyceride [Mass/Vol] 103 mg/dL <199 [facility] Comment on above: The drugs N-Acetylcy steine and Metamizole may falsely depress this assay.Serum Triglycerides Reference Interval Normal <150 mg/dL Borderline high 150 - 199 mg/dL High 200 - 499 mg/dL Very High > or = 500 mg/dL WBC (Bld) [#/Vol] 6.4 10*3/uL 4.4-11.0 [facility] Determination of erythrocyte mean corpuscular volume (MCV)Ordered By: Michael Snowden on 05-28-2023 MCV (RBC) [Entitic vol] 100.8 fL 81-99 [facility] Erythrocyte distribution wid th ratioOrdered By: Michael Snowden on 05-28-2023 Erythrocyte distribution width (RBC) [Ratio] 13.2 % 11.6-14.6 [facility] Erythrocyte distribution wid th standard deviationOrdered By: [facility] on [facility] Erythrocyte distribution width (RBC) [Entitic vol] 48.9 fL 35.1-43.9 [facility] Hematocrit Auto (Bld) [Volum e fraction]Ordered [facility]: [facility] on 05-28-2023 Hematocrit (Bld) [Volume fraction] 39.4 % 37-47 [facility] Immature granulocytes/100 WB C Auto (Bld)Ordered [facility]: [facility]23 Immature granulocytes/100 WBC (Bld) 0.300 % 0.0-0.9 [facility] Comment on above: IG% - Immature Granu locytes (promyelocytes, myelocytes and metamyelocytes) > 1% indicates that a LEFT SHIFT is Present. Laboratory - Chemistry and C hemistry - challengeOrdered By: [facility] on 05-28-2023 Albumin/Globulin [Mass ratio] 0.8 {ratio} 0.9-2.4 [facility] ALP [Catalytic activity/Vol] 78 U/L 45-117 [facility] ALT [Catalytic activity/Vol] 29 U/L 13-56 [facility] Cholesterol in HDL [Mass/Vol] 70 mg/dL >40 [facility] Comment on above: The drugs N-Acetylcy steine and Metamizole may falsely depress this assay. Reference Range HDL <40 mg/dL Low HDL Cholesterol HDL >or= 60 mg/dL High HDL Cholesterol Cholesterol in LDL [Mass/Vol] 77 mg/dL 0-130 [facility] CO2 [Moles/Vol] 28.0 mmol/L 21.0-32.0 [facility] Globulin (S) [Mass/Vol] 4.2 g/dL 2.2-4.2 [facility] Urea nitrogen/Creatinine [Mass ratio] 22.7 mg/mg 10-20 [facility] Laboratory - Hematology and Cell countsOrdered By: Michael Snowden on 05-28-2023 MCH (RBC) [Entitic mass] 32.5 pg 27.0-32.0 [facility] MCHC (RBC) [Mass/Vol] 32.2 g/dL 32-36 [facility] Nucleated RBC/100 WBC (Bld) [Ratio] 0 % 0-5 [facility] Platelet mean volume (Bld) [Entitic vol] 9.8 fL 6.2-12.0 [facility] Platelets (Bld) [#/Vol] 219 10*3/uL 150-450 [facility] No Panel InformationOrdered By: Michael Snowden on 05-28-2023 Estimated GFR (MDRD) Amer 97 mL/min >60 [facility] Comment on above: GFR Calc Estimated GFR (MDRD) Non-Af Amer 80 mL/min >60 [facility] Comment on above: Non- GFR Calc Vitamin D 25-Hydroxy 81.9 ng/mL [facility] Comment on above: Vitamin D 25(OH) Sta tus Range Deficiency <20 ng/mL (50nmol/L) Insufficiency 20 - 30 ng/mL (50 - 75 nmol/L) Sufficiency 30 - 100 ng/mL (75 - 250 nmol/L) Toxicity >100 ng/mL (>250 nmol/L) VLDL Cholesterol 21 mg/dL 5-40 [facility] RBC Auto (Bld) [#/Vol]Ordere d By: Michael Snowden on 05-28-2023 RBC (Bld) [#/Vol] 3.91 10*6/uL 4.2-5.4 [facility] Serum or plasma calcium gianluca urement (mass/volume)Ordered By: Michael Snowden on 05-28-2023 Calcium [Mass/Vol] 9.0 mg/dL 8.5-10.1 [facility] Serum or plasma creatinine m easurement (mass/volume)Ordered By: Michael Snowden on 05-28-2023 Creatinine [Mass/Vol] 0.75 mg/dL 0.55-1.02 [facility] Comment on above: The validity of the calculated GFR & GFRAA in patients over 70 years has not been determined. Clinical correlation is essential. Serum or plasma thyroid stim ulating hormone (TSH) measurement (units/volume)Ordered By: Michael Snowden on 05-28-2023 TSH Qn 1.09 uIU/mL 0.358-3.74 [facility] Serum or plasma urea nitroge n measurement (mass/volume)Ordered By: Michael Snowden on 05-28-2023 Urea nitrogen [Mass/Vol] 17 mg/dL 7-18 [facility] Thin prep Papanicolaou smear with manual screeningOrdered By: Michael Snowden on 05-28-2023 Thin prep Papanicolaou smear with manual screening 3.4 g/dL 3.2-5.0 [facility] Thin prep Papanicolaou smear with manual screening 23 U/L 15-37 [facility] Thin prep Papanicolaou smear with manual screening 5 5-15 [facility] Absolute lymphocyte countOrd ered By: Gaetano Cleary on 05-09-2023 Lymphocytes Auto (Unsp spec) [#/Vol] 1.22 10*3/uL 0.83-4.51 [facility] Automated lymphocyte count a s percentage of total leukocytesOrdered By: Gaetano Cleary on 05-09-2023 Lymphocytes/100 WBC Auto (Unsp spec) 20.0 % 19-41 [facility] Basophil percentageOrdered B y: Gaetano Cleary on 05-09-2023 Basophils/100 WBC (Bld) 0.7 % 0-1 [facility] Eosinophils/100 WBC (Bld) 2.3 % 0-5 [facility] Hemoglobin (Bld) [Mass/Vol] 12.3 g/dL 12.0-15. 0 [facility] Monocytes/100 WBC (Bld) 8.4 % 0-10 [facility] Neutrophils (Bld) [#/Vol] 4.2 10*3/uL 2.0-7.7 [facility] Neutrophils/100 WBC (Bld) 68.1 % 47-70 [facility] WBC (Bld) [#/Vol] 6.1 10*3/uL 4.4-11.0 [facility] Determination of erythrocyte mean corpuscular volume (MCV)Ordered By: Gaetano Cleary on 05-09-2023 MCV (RBC) [Entitic vol] 100.8 fL 81-99 [facility] Erythrocyte distribution wid th ratioOrdered By: Gaetano Cleary on 05-09-2023 Erythrocyte distribution width (RBC) [Ratio] 13.2 % 11.6-14.6 [facility] Erythrocyte distribution wid th standard deviationOrdered By: Gaetano Cleary on 05-09-2023 Erythrocyte distribution width (RBC) [Entitic vol] 49.1 fL 35.1-43.9 [facility] Erythrocyte sedimentation ra teOrdered By: Gaetano Cleary on 05-09-2023 ESR (Bld) [Velocity] 18 mm/h 0-30 [facility] Hematocrit Auto (Bld) [Volum e fraction]Ordered By: Gaetano Cleary on 05-09-2023 Hematocrit (Bld) [Volume fraction] 39.9 % 37-47 [facility] Immature granulocytes/100 WB C Auto (Bld)Ordered By: Gaetano Cleary on 05-09-2023 Immature granulocytes/100 WBC (Bld) 0.500 % 0.0-0.9 [facility] Comment on above: IG% - Immature Granu locytes (promyelocytes, myelocytes and metamyelocytes) > 1% indicates that a LEFT SHIFT is Present. Laboratory - Hematology and Cell countsOrdered By: Gaetano Cleary on 05-09-2023 MCH (RBC) [Entitic mass] 31.1 pg 27.0-32.0 [facility] MCHC (RBC) [Mass/Vol] 30.8 g/dL 32-36 [facility] Nucleated RBC/100 WBC (Bld) [Ratio] 0 % 0-5 [facility] Platelet mean volume (Bld) [Entitic vol] 9.8 fL 6.2-12.0 [facility] Platelets (Bld) [#/Vol] 225 10*3/uL 150-450 [facility] No Panel InformationOrdered By: Gaetano Cleary on 05-09-2023 C-Reactive Protein Extended Range < 2.90 mg/L 0.0-3.0 [facility] Comment on above: C-Reactive Protein ( CRP) provides useful information for thediagnosis, therapy and monitoring of inflammatory processesand associated diseases. For the evaluation of Relative Riskfor Cardiovascular Disease, a High Sensitivity CRP (HSCRP)should be ordered. RBC Auto (Bld) [#/Vol]Ordere d By: Gaetano Cleary on 05-09-2023 RBC (Bld) [#/Vol] 3.96 10*6/uL 4.2-5.4 [facility] Absolute lymphocyte countOrd ered By: Michael Snowden on 11-27-2022 Lymphocytes Auto (Unsp spec) [#/Vol] 1.24 10*3/uL 0.83-4.51 [facility] Basophil percentageOrdered B y: Michael Snowden on 11-27-2022 Basophils/100 WBC (Bld) 0.8 % 0-1 [facility] Bilirubin [Mass/Vol] 0.30 mg/dL 0.20-1.00 [facility] Comment on above: For patients on eltr ombopag therapy, use of [place] TBIL is not recommended. Chloride [Moles/Vol] 110 mmol/L 98-107 [facility] Cholesterol [Mass/Vol] 169 mg/dL <200 [facility] Comment on above: <200 mg/dL Desirable 200-240 mg/dL Borderline >240 mg/dL High Risk Eosinophils/100 WBC (Bld) 2.5 % 0-5 [facility] Glucose [Mass/Vol] 93 mg/dL 74-106 [facility] Neutrophils (Bld) [#/Vol] 3.3 10*3/uL 2.0-7.7 [facility] Neutrophils/100 WBC (Bld) 63.1 % 47-70 [facility] Potassium [Moles/Vol] 4.1 mmol/L 3.5-5.1 [facility] Protein [Mass/Vol] 7.4 g/dL 6.4-8.2 [facility] Sodium [Moles/Vol] 143 mmol/L 136-145 [facility] Triglyceride [Mass/Vol] 57 mg/dL <199 [facility] Comment on above: The drugs N-Acetylcy steine and Metamizole may falsely depress this assay.Serum Triglycerides Reference Interval Normal <150 mg/dL Borderline high 150 - 199 mg/dL High 200 - 499 mg/dL Very High > or = 500 mg/dL WBC (Bld) [#/Vol] 5.2 10*3/uL 4.4-11.0 [facility] Blood erythrocytes count (nu mber/volume)Ordered By: Michael Snowden on 11-27-2022 RBC (Bld) [#/Vol] 3.78 10*6/uL 4.2-5.4 [facility] Blood hemoglobin measurement (mass/volume)Ordered By: Michael Snowden on 11-27-2022 Hemoglobin (Bld) [Mass/Vol] 11.9 g/dL 12.0-15. 0 [facility] Blood lymphocytes/100 leukoc ytesOrdered By: [facility] on 11-27-2022 Lymphocytes/100 WBC (Bld) 23.8 % 19-41 [facility] Blood monocytes/100 leukocyt esOrdered By: [facility] on 11-27-2022 Monocytes/100 WBC (Bld) 9.4 % 0-10 [facility] Blood platelet mean volumeOr dered By: [facility] on 11-27-2022 Platelet mean volume (Bld) [Entitic vol] 10.0 fL 6.2-12.0 [facility] Determination of erythrocyte mean corpuscular volume (MCV)Ordered By: [facility] on 11-27-2022 MCV (RBC) [Entitic vol] 100.0 fL 81-99 [facility] Hematocrit Auto (Bld) [Volum e fraction]Ordered By: [facility] on 11-27-2022 Hematocrit (Bld) [Volume fraction] 37.8 % 37-47 [facility] Laboratory - Chemistry and C hemistry - challengeOrdered By: [facility] 11-27-2022 ALP [Catalytic activity/Vol] 68 U/L 45-117 [facility] ALT [Catalytic activity/Vol] 22 U/L 13-56 [facility] CO2 [Moles/Vol] 28.0 mmol/L 21.0-32.0 [facility] Globulin (S) [Mass/Vol] 4.1 g/dL 2.2-4.2 [facility] Urea nitrogen/Creatinine [Mass ratio] 21.3 mg/mg 10-20 [facility] Laboratory - Hematology and Cell countsOrdered By: [facility] 11-27-2022 Erythrocyte distribution width (RBC) [Entitic vol] 47.8 fL 35.1-43.9 [facility] Erythrocyte distribution width (RBC) [Ratio] 13.1 % 11.6-14.6 [facility] Immature granulocytes/100 WBC (Bld) 0.400 % 0.0-0.9 [facility] Comment on above: IG% - Immature Granu locytes (promyelocytes, myelocytes and metamyelocytes) > 1% indicates that a LEFT SHIFT is Present. MCH (RBC) [Entitic mass] 31.5 pg 27.0-32.0 [facility] Nucleated RBC/100 WBC (Bld) [Ratio] 0 % 0-5 [facility] MCHC Auto (RBC) [Mass/Vol]Or dered By: Michael Snowden on 11-27-2022 MCHC (RBC) [Mass/Vol] 31.5 g/dL 32-36 [facility] No Panel InformationOrdered By: Michael Snowden on 11-27-2022 Estimated GFR (MDRD) Amer 112 mL/min >60 [facility] Comment on above: GFR Calc Estimated GFR (MDRD) Non-Af Amer 93 mL/min >60 [facility] Comment on above: Non- GFR Calc Thyroid Stimulating Hormone (TSH) 0.84 uIU/mL 0.358-3.74 [facility] Vitamin D 25-Hydroxy 87.7 ng/mL [facility] Comment on above: Vitamin D 25(OH) Sta tus Range Deficiency <20 ng/mL (50nmol/L) Insufficiency 20 - 30 ng/mL (50 - 75 nmol/L) Sufficiency 30 - 100 ng/mL (75 - 250 nmol/L) Toxicity >100 ng/mL (>250 nmol/L) Platelets bldOrdered By: Michael Snowden on 11-27-2022 Platelets (Bld) [#/Vol] 214 10*3/uL 150-450 [facility] Serum or plasma albumin gianluca urement (mass/volume)Ordered By: Michael Snowden on 11-27-2022 Albumin [Mass/Vol] 3.3 g/dL 3.2-5.0 [facility] Serum or plasma albumin/glob ulin mass ratioOrdered By: Michael Snowden 11-27-2022 Albumin/Globulin [Mass ratio] 0.8 {ratio} 0.9-2.4 [facility] Serum or plasma calcium gianluca urement (mass/volume)Ordered By: Michael Snowden on 11-27-2022 Calcium [Mass/Vol] 9.2 mg/dL 8.5-10.1 [facility] Serum or plasma cholesterol in HDL measurement (mass/volume)Ordered By: Michael Snowden on 11-27-2022 Cholesterol in HDL [Mass/Vol] 66 mg/dL >40 [facility] Comment on above: The drugs N-Acetylcy steine and Metamizole may falsely depress this assay. Reference Range HDL <40 mg/dL Low HDL Cholesterol HDL >or= 60 mg/dL High HDL Cholesterol Serum or plasma cholesterol in VLDL measurement (mass/volume)Ordered By: Michael Snowden on 11-27-2022 Cholesterol in VLDL [Mass/Vol] 11 mg/dL 5-40 [facility] Serum or plasma creatinine m easurement (mass/volume)Ordered By: Michael Snowden on 11-27-2022 Creatinine [Mass/Vol] 0.66 mg/dL 0.55-1.02 [facility] Comment on above: The validity of the calculated GFR & GFRAA in patients over 70 years has not been determined. Clinical correlation is essential. Serum or plasma low density lipoprotein (LDL) cholesterol measurement (mass/volume)Ordered By: Michael Snowden on 11-27-2022 Cholesterol in LDL [Mass/Vol] 92 mg/dL 0-130 [facility] Serum or plasma urea nitroge n measurement (mass/volume)Ordered By: Michael Snowden on 11-27-2022 Urea nitrogen [Mass/Vol] 14 mg/dL 7-18 [facility] Thin prep Papanicolaou smear with manual screeningOrdered By: Michael Snowden on 11-27-2022 Thin prep Papanicolaou smear with manual screening 21 U/L 15-37 [facility] Thin prep Papanicolaou smear with manual screening 5 5-15 [facility] No Panel InformationOrdered By: Sae Friend on 08-05-2022 Stool Calprotectin 32 ug/g 0-120 [facility] Comment on above: Concentration Interp retation Follow-Up<16 - 50 ug/g Normal None>50 -120 ug/g Borderline Re-evaluate in 4-6 weeks >120 ug/g Abnormal Repeat as clinically indicatedPerformed at: - [facility] [address] [id number] Director: Alaina Alex MD, Phone: [phone] Stool Pancreatic Elastase 202 >200 [facility] Comment on above: Result Units: ug [address] st./g Severe Pancreatic Insufficiency: <100 Moderate Pancreatic Insufficiency: 100 - 200 Normal: >200Performed at: [address] [id number] Director: Alaina Alex MD, Phone: [phone] Stool lactoferrin detection by immunoassayOrdered By: Sae Brnadt on 08-05-2022 Lactoferrin IA Ql (Stl) [facility] Lactoferrin IA Ql (Stl) [facility] Absolute lymphocyte countOrd ered By: Sae Brandt on 06-07-2022 Lymphocytes Auto (Unsp spec) [#/Vol] 1.34 10*3/uL 0.83-4.51 [facility] Atypical perinuclear antineu trophil cytoplasmic antibodies measurementOrdered By: Sae Brandt on 06-07-2022 Neutrophil cytoplasmic Ab.perinuclear.atypical IF (S) [Titer] <1:20 titer Neg:<1:20 [facility] Comment on above: The atypical pANCA p attern has been observed in asignificant percentage of patients with ulcerative colitis,primary sclerosing cholangitis and autoimmune hepatitis.Performed at: [facility] [employer] [id number] Director: Olivier Jenkins PhD, Phone: [phone] at: [employer] [id number] Director: Alaina Alex MD, Phone: [phone] Basophil percentageOrdered B y: Sae Brandt on 06-07-2022 Basophil percentage < 0.2 AI 0.0-0.9 [facility] Basophils/100 WBC (Bld) 0.9 % 0-1 [facility] Bilirubin [Mass/Vol] 0.40 mg/dL 0.20-1.00 [facility] Comment on above: For patients on eltr ombopag therapy, use of [place] TBIL is not recommended. Chloride [Moles/Vol] 103 mmol/L 98-107 [facility] Eosinophils/100 WBC (Bld) 2.3 % 0-5 [facility] Glucose [Mass/Vol] 85 mg/dL 74-106 [facility] LDH [Catalytic activity/Vol] 226 U/L 84-246 [facility] Neutrophils (Bld) [#/Vol] 4.5 10*3/uL 2.0-7.7 [facility] Neutrophils/100 WBC (Bld) 67.7 % 47-70 [facility] Potassium [Moles/Vol] 3.6 mmol/L 3.5-5.1 [facility] Protein [Mass/Vol] 7.6 g/dL 6.4-8.2 [facility] Sodium [Moles/Vol] 140 mmol/L 136-145 [facility] WBC (Bld) [#/Vol] 6.6 10*3/uL 4.4-11.0 [facility] Blood erythrocytes count (nu mber/volume)Ordered By: Sae Brandt on 06-07-2022 RBC (Bld) [#/Vol] 4.03 10*6/uL 4.2-5.4 [facility] Blood hemoglobin measurement (mass/volume)Ordered By: Sae Brandt on 06-07-2022 Hemoglobin (Bld) [Mass/Vol] 13.0 g/dL 12.0-15. 0 [facility] Blood lymphocytes/100 leukoc ytesOrdered By: Sae Brandt on 06-07-2022 Lymphocytes/100 WBC (Bld) 20.2 % 19-41 [facility] Blood monocytes/100 leukocyt esOrdered By: Sae Brandt on 06-07-2022 Monocytes/100 WBC (Bld) 8.6 % 0-10 [facility] Blood platelet mean volumeOr dered By: Sae Brandt on 06-07-2022 Platelet mean volume (Bld) [Entitic vol] 9.5 fL 6.2-12.0 [facility] Determination of erythrocyte mean corpuscular volume (MCV)Ordered By: Sae Brandt on 06-07-2022 MCV (RBC) [Entitic vol] 99.5 fL 81-99 [facility] Erythrocyte sedimentation ra teOrdered By: Sae Brandt on 06-07-2022 ESR (Bld) [Velocity] 30 mm/h 0-30 [facility] Hematocrit Auto (Bld) [Volum e fraction]Ordered By: Sae Brandt on 06-07-2022 Hematocrit (Bld) [Volume fraction] 40.1 % 37-47 [facility] Interpretation of serum or p lasma protein pattern by immunofixation (narrative resultOrdered By: Sae Brandt on 06-07-2022 Protein Fractions Immunofixation Micheal [Interp] See comment [facility] Comment on above: NOT OBSERVED Laboratory - Chemistry and C hemistry - challengeOrdered By: Sae Brandt on 06-07-2022 ALP [Catalytic activity/Vol] 72 U/L 45-117 [facility] ALT [Catalytic activity/Vol] 25 U/L 13-56 [facility] CO2 [Moles/Vol] 29.0 mmol/L 21.0-32.0 [facility] Urea nitrogen/Creatinine [Mass ratio] 16.9 mg/mg 10-20 [facility] Laboratory - Hematology and Cell countsOrdered By: Sae Brandt on 06-07-2022 Erythrocyte distribution width (RBC) [Entitic vol] 48.0 fL 35.1-43.9 [facility] Erythrocyte distribution width (RBC) [Ratio] 13.1 % 11.6-14.6 [facility] Immature granulocytes/100 WBC (Bld) 0.300 % 0.0-0.9 [facility] Comment on above: IG% - Immature Granu locytes (promyelocytes, myelocytes and metamyelocytes) > 1% indicates that a LEFT SHIFT is Present. MCH (RBC) [Entitic mass] 32.3 pg 27.0-32.0 [facility] Nucleated RBC/100 WBC (Bld) [Ratio] 0 % 0-5 [facility] MCHC Auto (RBC) [Mass/Vol]Or dered By: Sae Brandt on 06-07-2022 MCHC (RBC) [Mass/Vol] 32.4 g/dL 32-36 [facility] No Panel InformationOrdered By: Sae Brandt on 06-07-2022 Addendum Document Comment . [facility] Comment on above: Protein electrophore sis scan will follow via computer,mail, or hoop punch and coiler operator delivery. Centromere B Antibody 0.3 AI 0.0-0.9 [facility] Endomysial IgA Antibody Negative Negative [facility] Estimated GFR (MDRD) Amer 94 mL/min >60 [facility] Comment on above: GFR Calc Estimated GFR (MDRD) Non-Af Amer 78 mL/min >60 [facility] Comment on above: Non- GFR Calc Immunoglobulin E 25 IU/mL 6-495 [facility] Miscellaneous Test See comment [facility] Comment on above: TEST RESULT LIMITSIB D [...] developed and its performance characteristics determined [facility]. It has not been cleared or approved by the Food and Drug Administration. The FDA has determined that such clearance or approval is not necessary.Atypical pANCA Negative Negative Comments Pattern is not suggestive of Inflammatory Bowel Disease TESTING PERFORMED AT [facility]. ORIGINAL REPORT ON FILE IN LAB CONTAINS ADDITIONAL TEST SITE INFORMATION. MILIEU COORDINATOR Antibody <0.2 AI 0.0-0.9 [facility] Platelets bldOrdered By: Raúl Brandt on 06-07-2022 Platelets (Bld) [#/Vol] 214 10*3/uL 150-450 [facility] Serum DNA double strand anti body assay (units/volume)Ordered By: Sae Brandt on 06-07-2022 DNA double strand Ab Qn (S) 5 [IU]/mL 0-9 [facility] Comment on above: Negative <5 Equivoca l 5 - 9 Positive >9 Serum Jaci-1 antibody assay (u nits/volume)Ordered By: Sae Brandt on 06-07-2022 Jaci-1 extractable nuclear Ab Qn (S) <0.2 AI 0.0-0.9 [facility] Serum Scl-70 extractable nuc lear antibody assay (units/volume)Ordered By: Sae Brandt on 06-07-2022 SCL-70 extractable nuclear Ab Qn (S) <0.2 AI 0.0-0.9 [facility] Serum Espinosa extractable nucl ear antibody detectionOrdered By: Sae Brandt on 06-07-2022 Espinosa extractable nuclear Ab Ql (S) <0.2 AI 0.0-0.9 [facility] Serum [id number] measu rement by electrophoresisOrdered By: Sae Brandt on 06-07-2022 Alpha 1 globulin Elph [Mass/Vol] 0.3 g/dL 0.0-0.4 [facility] Alpha 1 globulin Elph [Mass/Vol] 0.7 g/dL 0.4-1.0 [facility] Serum classic neutrophil cyt oplasmic antibody assay (units/volume)Ordered By: Sae Brandt on 06-07-2022 Neutrophil cytoplasmic Ab.classic Qn (S) <1:20 titer Neg:<1:20 [facility] Serum globulin measurement ( mass/volume)Ordered By: Sae Brandt on 06-07-2022 Globulin (S) [Mass/Vol] 3.6 g/dL 2.2-3.9 [facility] Serum or plasma C reactive p rotein measurement (mass/volume)Ordered By: Sae Brandt on 06-07-2022 CRP [Mass/Vol] mg/L 0.0-3.0 [facility] Comment on above: C-Reactive Protein ( CRP) provides useful information for thediagnosis, therapy and monitoring of inflammatory processesand associated diseases. For the evaluation of Relative Riskfor Cardiovascular Disease, a High Sensitivity CRP (HSCRP)should be ordered. Serum or plasma IgA measurem ent (mass/volume)Ordered By: Sae Brandt on 06-07-2022 IgA [Mass/Vol] 338 mg/dL 64-422 [facility] Serum or plasma IgG measurem ent (mass/volume)Ordered By: Sae Brandt on 06-07-2022 IgG [Mass/Vol] 1428 mg/dL [phone] [facility] Serum or plasma IgM measurem ent (mass/volume)Ordered By: Sae Brandt on 06-07-2022 IgM [Mass/Vol] 92 mg/dL 26-217 [facility] Serum or plasma albumin gianluca urement (mass/volume)Ordered By: Sae Brandt on 06-07-2022 Albumin [Mass/Vol] 3.6 g/dL 2.9-4.4 [facility] Serum or plasma albumin/glob ulin mass ratioOrdered By: Sae Brandt on 06-07-2022 Albumin/Globulin [Mass ratio] 0.9 {ratio} 0.9-2.4 [facility] Serum or plasma beta globuli n measurement by electrophoresis (mass/volume)Ordered By: Sae Brandt on 06-07-2022 Beta globulin Elph [Mass/Vol] 1.0 g/dL 0.7-1.3 [facility] Serum or plasma calcium gianluca urement (mass/volume)Ordered By: Sae Brandt on 06-07-2022 Calcium [Mass/Vol] 9.5 mg/dL 8.5-10.1 [facility] Serum or plasma creatinine m easurement (mass/volume)Ordered By: Sae Brandt on 06-07-2022 Creatinine [Mass/Vol] 0.77 mg/dL 0.55-1.02 [facility] Comment on above: The validity of the calculated GFR & GFRAA in patients over 70 years has not been determined. Clinical correlation is essential. Serum or plasma gamma globul in measurement by electrophoresis (mass/volume)Ordered By: Sae Brandt on 06-07-2022 Gamma globulin Elph [Mass/Vol] 1.6 g/dL 0.4-1.8 [facility] Serum or plasma immunoelectr ophoresis interpretation (nominal result)Ordered By: Sae Brandt on 06-07-2022 Interpretation IEP [Interp] Comment . [facility] Comment on above: No monoclonality det ected. Serum or plasma urea nitroge n measurement (mass/volume)Ordered By: Sae Brandt on 06-07-2022 Urea nitrogen [Mass/Vol] 13 mg/dL 7-18 [facility] Serum perinuclear neutrophil cytoplasmic antibody titer by immunofluorescenceOrdered By: Sae Brandt on 06-07-2022 Neutrophil cytoplasmic Ab.perinuclear IF (S) [Titer] <1:20 titer Neg:<1:20 [facility] Comment on above: The presence of posi tive fluorescence exhibiting P-ANCA orC-ANCA patterns alone is not specific for the diagnosis ofWegener's Granulomatosis (WG) or microscopic polyangiitis.Decisions about treatment should not be based solely onANCA IFA results. The [employer] Consensusrecommends follow up testing of positive sera with both MT-3 and MPO-ANCA enzyme immunoassays. As many as 5% serumsamples are positive only by EIA. Ref. AM J Clin [id number];111:507-513. Serum tissue transglutaminas e IgA antibody assay (units/volume)Ordered By: Sae Brandt on 06-07-2022 tTG IgA Qn (S) <2 U/mL 0-3 [facility] Comment on above: Negative 0 - 3 Weak Positive 4 - 10 Positive >10 Tissue Transglutaminase (tTG) has been identified as the endomysial antigen. Studies have demonstr- ated that endomysial IgA antibodies have over 99% specificity for gluten sensitive enteropathy. Thin prep Papanicolaou smear with manual screeningOrdered By: Sae Brandt on 06-07-2022 Thin prep Papanicolaou smear with manual screening 23 U/L 15-37 [facility] Thin prep Papanicolaou smear with manual screening 8 5-15 [facility] Thin prep Papanicolaou smear with manual screening 1.1 0.7-1.7 [facility] Total protein bloodOrdered B y: Sae Brandt on 06-07-2022 Protein [Mass/Vol] 7.2 g/dL 6.0-8.5 [facility] Absolute lymphocyte countOrd ered By: Dr. Snowden on 03-26-2022 Lymphocytes Auto (Unsp spec) [#/Vol] 1.21 10*3/uL 0.83-4.51 [facility] Basophil percentageOrdered B y: Dr. Snowden on 03-26-2022 Basophils/100 WBC (Bld) 0.5 % 0-1 [facility] Bilirubin [Mass/Vol] 0.40 mg/dL 0.20-1.00 [facility] Comment on above: For patients on eltr ombopag therapy, use of [place] TBIL is not recommended. Chloride [Moles/Vol] 104 mmol/L 98-107 [facility] Cholesterol [Mass/Vol] 176 mg/dL <200 [facility] Comment on above: <200 mg/dL Desirable 200-240 mg/dL Borderline >240 mg/dL High Risk Eosinophils/100 WBC (Bld) 1.9 % 0-5 [facility] Glucose [Mass/Vol] 88 mg/dL 74-106 [facility] Neutrophils (Bld) [#/Vol] 4.0 10*3/uL 2.0-7.7 [facility] Neutrophils/100 WBC (Bld) 67.6 % 47-70 [facility] Potassium [Moles/Vol] 4.1 mmol/L 3.5-5.1 [facility] Protein [Mass/Vol] 7.0 g/dL 6.4-8.2 [facility] Sodium [Moles/Vol] 140 mmol/L 136-145 [facility] Triglyceride [Mass/Vol] 113 mg/dL <199 [facility] Comment on above: The drugs N-Acetylcy steine and Metamizole may falsely depress this assay.Serum Triglycerides Reference Interval Normal <150 mg/dL Borderline high 150 - 199 mg/dL High 200 - 499 mg/dL Very High > or = 500 mg/dL WBC (Bld) [#/Vol] 5.9 10*3/uL 4.4-11.0 [facility] Blood erythrocytes count (nu mber/volume)Ordered By: Dr. Snowden on 03-26-2022 RBC (Bld) [#/Vol] 4.01 10*6/uL 4.2-5.4 [facility] Blood hemoglobin measurement (mass/volume)Ordered By: Dr. Snowden on 03-26-2022 Hemoglobin (Bld) [Mass/Vol] 12.6 g/dL 12.0-15. 0 [facility] Blood lymphocytes/100 leukoc ytesOrdered By: Dr. Snowden on 03-26-2022 Lymphocytes/100 WBC (Bld) 20.4 % 19-41 [facility] Blood monocytes/100 leukocyt esOrdered By: Dr. Snowden on 03-26-2022 Monocytes/100 WBC (Bld) 9.3 % 0-10 [facility] Blood platelet mean volumeOr dered By: Dr. Snowden on 03-26-2022 Platelet mean volume (Bld) [Entitic vol] 10.1 fL 6.2-12.0 [facility] Determination of erythrocyte mean corpuscular volume (MCV)Ordered By: Dr. Snowden on 03-26-2022 MCV (RBC) [Entitic vol] 99.0 fL 81-99 [facility] Hematocrit Auto (Bld) [Volum e fraction]Ordered By: Dr. Snowden on 03-26-2022 Hematocrit (Bld) [Volume fraction] 39.7 % 37-47 [facility] Laboratory - Chemistry and C hemistry - challengeOrdered By: Dr. Snowden on 03-26-2022 ALP [Catalytic activity/Vol] 64 U/L 45-117 [facility] ALT [Catalytic activity/Vol] 23 U/L 13-56 [facility] CO2 [Moles/Vol] 28.0 mmol/L 21.0-32.0 [facility] Globulin (S) [Mass/Vol] 3.6 g/dL 2.2-4.2 [facility] Urea nitrogen/Creatinine [Mass ratio] 18.9 mg/mg 10-20 [facility] Laboratory - Hematology and Cell countsOrdered By: Dr. Snowden on 03-26-2022 Erythrocyte distribution width (RBC) [Entitic vol] 47.1 fL 35.1-43.9 [facility] Erythrocyte distribution width (RBC) [Ratio] 13.1 % 11.6-14.6 [facility] Immature granulocytes/100 WBC (Bld) 0.300 % 0.0-0.9 [facility] Comment on above: IG% - Immature Granu locytes (promyelocytes, myelocytes and metamyelocytes) > 1% indicates that a LEFT SHIFT is Present. MCH (RBC) [Entitic mass] 31.4 pg 27.0-32.0 [facility] Nucleated RBC/100 WBC (Bld) [[facility]] 0 % 0-5 [facility] ([facility]) [Mass/Vol]Or dered By: Dr. Snowden on 03-26-2022 MCHC (RBC) [Mass/Vol] 31.7 g/dL 32-36 [facility] No Panel InformationOrdered By: Dr. Snowden on 03-26-2022 Estimated GFR (MDRD) Amer 98 mL/min >60 [facility] Comment on above: GFR Calc Estimated GFR (MDRD) Non-Af Amer 81 mL/min >60 [facility] Comment on above: Non- GFR Calc Thyroid Stimulating Hormone (TSH) 0.92 uIU/mL 0.358-3.74 [facility] Vitamin D 25-Hydroxy 78.9 ng/mL [facility] Comment on above: Vitamin D 25(OH) Sta tus Range Deficiency <20 ng/mL (50nmol/L) Insufficiency 20 - 30 ng/mL (50 - 75 nmol/L) Sufficiency 30 - 100 ng/mL (75 - 250 nmol/L) Toxicity >100 ng/mL (>250 nmol/L) Platelets bldOrdered By: Dr. Snowden on 03-26-2022 Platelets (Bld) [#/Vol] 221 10*3/uL 150-450 [facility] Serum or plasma albumin gianluca urement (mass/volume)Ordered By: Dr. Snowden on 03-26-2022 Albumin [Mass/Vol] 3.4 g/dL 3.2-5.0 [facility] Serum or plasma albumin/glob ulin mass ratioOrdered By: Dr. Snowden on 03-26-2022 Albumin/Globulin [Mass ratio] 0.9 {ratio} 0.9-2.4 [facility] Serum or plasma calcium gianluca urement (mass/volume)Ordered By: Dr. Snowden on 03-26-2022 Calcium [Mass/Vol] 8.8 mg/dL 8.5-10.1 [facility] Serum or plasma cholesterol in HDL measurement (mass/volume)Ordered By: Dr. Snowden on 03-26-2022 Cholesterol in HDL [Mass/Vol] 60 mg/dL >40 [facility] Comment on above: The drugs N-Acetylcy steine and Metamizole may falsely depress this assay. Reference Range HDL <40 mg/dL Low HDL Cholesterol HDL >or= 60 mg/dL High HDL Cholesterol Serum or plasma cholesterol in VLDL measurement (mass/volume)Ordered By: Dr. Snowden on 03-26-2022 Cholesterol in VLDL [Mass/Vol] 23 mg/dL 5-40 [facility] Serum or plasma creatinine m easurement (mass/volume)Ordered By: Dr. Snowden on 03-26-2022 Creatinine [Mass/Vol] 0.74 mg/dL 0.55-1.02 [facility] Comment on above: The validity of the calculated GFR & GFRAA in patients over 70 years has not been determined. Clinical correlation is essential. Serum or plasma low density lipoprotein (LDL) cholesterol measurement (mass/volume)Ordered By: Dr. Snowden on 03-26-2022 Cholesterol in LDL [Mass/Vol] 93 mg/dL 0-130 [facility] Serum or plasma urea nitroge n measurement (mass/volume)Ordered By: Dr. Snowden on 03-26-2022 Urea nitrogen [Mass/Vol] 14 mg/dL 7-18 [facility] Thin prep Papanicolaou smear with manual screeningOrdered By: Dr. Snowden on 03-26-2022 Thin prep Papanicolaou smear with manual screening 18 U/L 15-37 [facility] Thin prep Papanicolaou smear with manual screening 8 5-15 [facility] Absolute lymphocyte counton 09-25-2021 Lymphocytes Auto (Unsp spec) [#/Vol] 1.32 10*3/uL 0.83-4.51 [facility] Work Phone: Basophil percentageon 2021 Basophils/100 WBC (Bld) 0.6 % 0-1 [facility] Work Phone: Bilirubin [Mass/Vol] 0.40 mg/dL 0.20-1.00 [facility] Work Phone: Comment on above: For patients on eltr ombopag therapy, use of [place] TBIL is not recommended. Chloride [Moles/Vol] 106 mmol/L 98-107 [facility] Work Phone: Cholesterol [Mass/Vol] 170 mg/dL <200 [facility] Work Phone: Comment on above: <200 mg/dL Desirable 200-240 mg/dL Borderline >240 mg/dL High Risk Eosinophils/100 WBC (Bld) 2.4 % 0-5 [facility] Work Phone: Glucose [Mass/Vol] 96 mg/dL 74-106 [facility] Work Phone: [phone] Neutrophils (Bld) [#/Vol] 4.8 10*3/uL 2.0-7.7 [facility] Work Phone: [phone] Neutrophils/100 WBC (Bld) 68.8 % 47-70 [facility] Work Phone: [phone] Potassium [Moles/Vol] 3.9 mmol/L 3.5-5.1 [facility] Work Phone: [phone] Protein [Mass/Vol] 7.2 g/dL 6.4-8.2 [facility] Work Phone: [phone] Sodium [Moles/Vol] 141 mmol/L 136-145 [facility] Work Phone: Triglyceride [Mass/Vol] 93 mg/dL <199 [facility] Work Phone: Comment on above: The drugs N-Acetylcy steine and Metamizole may falsely depress this assay.Serum Triglycerides Reference Interval Normal <150 mg/dL Borderline high 150 - 199 mg/dL High 200 - 499 mg/dL Very High > or = 500 mg/dL WBC (Bld) [#/Vol] 7.0 10*3/uL 4.4-11.0 [facility] Work Phone: [phone] Blood erythrocytes count (nu mber/volume)on 09-25-2021 RBC (Bld) [#/Vol] 4.05 10*6/uL 4.2-5.4 [facility] Work Phone: [phone] Blood hemoglobin measurement (mass/volume)on 09-25-2021 Hemoglobin (Bld) [Mass/Vol] 12.8 g/dL 12.0-15. 0 [facility] Work Phone: Blood lymphocytes/100 leukoc yteson 09-25-2021 Lymphocytes/100 WBC (Bld) 18.9 % 19-41 [facility] Work Phone: Blood monocytes/100 leukocyt eson 09-25-2021 Monocytes/100 WBC (Bld) 9.0 % 0-10 [facility] Work Phone: Blood platelet mean volumeon 09-25-2021 Platelet mean volume (Bld) [Entitic vol] 10.1 fL 6.2-12.0 [facility] Work Phone: Determination of erythrocyte mean corpuscular volume (MCV)on 09-25-2021 MCV (RBC) [Entitic vol] 98.3 fL 81-99 [facility] Work Phone: Hematocrit Auto (Bld) [Volum e fraction]on 09-25-2021 Hematocrit (Bld) [Volume fraction] 39.8 % 37-47 [facility] Work Phone: [phone] Laboratory - Chemistry and C hemistry - challengeon 09-25-2021 ALP [Catalytic activity/Vol] 62 U/L 45-117 [facility] Work Phone: [phone] ALT [Catalytic activity/Vol] 20 U/L 13-56 [facility] Work Phone: [phone] CO2 [Moles/Vol] 29.0 mmol/L 21.0-32.0 [facility] Work Phone: [phone] Globulin (S) [Mass/Vol] 3.7 g/dL 2.2-4.2 [facility] Work Phone: [phone] Urea nitrogen/Creatinine [Mass ratio] 17.0 mg/mg 10-20 [facility] Work Phone: [phone] Laboratory - Hematology and Cell countson 09-25-2021 Erythrocyte distribution width (RBC) [Entitic vol] 47.1 fL 35.1-43.9 [facility] Work Phone: [phone] Erythrocyte distribution width (RBC) [Ratio] 13.2 % 11.6-14.6 [facility] Work Phone: Immature granulocytes/100 WBC (Bld) 0.300 % 0.0-0.9 [facility] Work Phone: Comment on above: IG% - Immature Granu locytes (promyelocytes, myelocytes and metamyelocytes) > 1% indicates that a LEFT SHIFT is Present. MCH (RBC) [Entitic mass] 31.6 pg 27.0-32.0 [facility] Work Phone: Nucleated RBC/100 WBC (Bld) [Ratio] 0 % 0-5 [facility] Work Phone: MCHC Auto (RBC) [Mass/Vol]on 09-25-2021 MCHC (RBC) [Mass/Vol] 32.2 g/dL 32-36 [facility] Work Phone: No Panel Informationon 09-25 Estimated GFR (MDRD) Amer 95 mL/min >60 [facility] Work Phone: Comment on above: GFR Calc Estimated GFR (MDRD) Non-Af Amer 78 mL/min >60 [facility] Work Phone: Comment on above: Non- GFR Calc Thyroid Stimulating Hormone (TSH) 0.89 uIU/mL 0.358-3.74 [facility] Work Phone: Vitamin D 25-Hydroxy 76.5 ng/mL [facility] Work Phone: Comment on above: Vitamin D 25(OH) Sta tus Range Deficiency <20 ng/mL (50nmol/L) Insufficiency 20 - 30 ng/mL (50 - 75 nmol/L) Sufficiency 30 - 100 ng/mL (75 - 250 nmol/L) Toxicity >100 ng/mL (>250 nmol/L) Platelets bldon 09-25-2021 Platelets (Bld) [#/Vol] 227 10*3/uL 150-450 [facility] Work Phone: Serum or plasma albumin gianluca urement (mass/volume)on 09-25-2021 Albumin [Mass/Vol] 3.5 g/dL 3.2-5.0 [facility] Work Phone: Serum or plasma albumin/glob ulin mass ratioon 09-25-2021 Albumin/Globulin [Mass ratio] 0.9 {ratio} 0.9-2.4 [facility] Work Phone: Serum or plasma calcium gianluca urement (mass/volume)on 09-25-2021 Calcium [Mass/Vol] 9.2 mg/dL 8.5-10.1 [facility] Work Phone: Serum or plasma cholesterol in HDL measurement (mass/volume)on 09-25-2021 Cholesterol in HDL [Mass/Vol] 60 mg/dL >40 [facility] [facility] Work Phone: Comment on above: The drugs N-Acetylcy steine and Metamizole may falsely depress this assay. Reference Range HDL <40 mg/dL Low HDL Cholesterol HDL >or= 60 mg/dL High HDL Cholesterol Serum or plasma cholesterol in VLDL measurement (mass/volume)on 09-25-2021 Cholesterol in VLDL [Mass/Vol] 19 mg/dL 5-40 [facility] Work Phone: Serum or plasma creatinine m easurement (mass/volume)on 09-25-2021 Creatinine [Mass/Vol] 0.76 mg/dL 0.55-1.02 [facility] Work Phone: Comment on above: The validity of the calculated GFR & GFRAA in patients over 70 years has not been determined. Clinical correlation is essential. Serum or plasma low density lipoprotein (LDL) cholesterol measurement (mass/volume)on 09-25-2021 Cholesterol in LDL [Mass/Vol] 91 mg/dL 0-130 [facility] Work Phone: Serum or plasma urea nitroge n measurement (mass/volume)on 09-25-2021 Urea nitrogen [Mass/Vol] 13 mg/dL 7-18 [facility] Work Phone: Thin prep Papanicolaou smear with manual screeningon 09-25-2021 Thin prep Papanicolaou smear with manual screening 15 U/L 15-37 [facility] Work Phone: Thin prep Papanicolaou smear with manual screening 6 5-15 [facility] Work Phone: Lab Report: Basic Metabolic Profile (BMP)on 12-17-2016 Anion gap 6 mmol/L Invalid Interpretation Code 5-15 [facility] Work Phone: BUN/Creatinine Ratio 14.8 RATIO Invalid Interpretation Code 10-20 [employer] Work Phone: [phone] Calcium 9.2 mg/dL Invalid Interpretation Code 8.5-10.1 [employer] Work Phone: [phone] Chloride 102 mmol/L Invalid Interpretation Code 98-107 [employer] Work Phone: [phone] CO2 30.0 mmol/L Invalid Interpretation Code 21.0-32.0 [facility] Phone: [phone] Creatinine 0.74 mg/dL Invalid Interpretation Code 0.55-1.02 [employer] Work Phone: [phone] eGFR (non-black) 82 mL/min/{1.73_m2} Invalid Interpretation Code >60 [employer] Work Phone: [phone] eGFR (non-black) 99 mL/min/{1.73_m2} Invalid Interpretation Code >60 [employer] Work Phone: [phone] Glucose 90 mg/dL Invalid Interpretation Code 70-110 [facility] Phone: [phone] Potassium 3.9 mmol/L Invalid Interpretation Code 3.5-5.1 [employer] Work Phone: [phone] Sodium 138 mmol/L Invalid Interpretation Code 136-145 [facility] Phone: [phone] Urea nitrogen 11 mg/dL Invalid Interpretation Code 7-18 [facility] Phone: [phone] Office Visiton 12-17-2016 Documentation of current medications (procedure) Done Invalid Interpretation Code [facility] Phone: [phone] Fall risk assessment Yes Invalid Interpretation Code [facility] Phone: [phone] Clinical Lists 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 03-08-20 15 Dietary management education, guidance, and counseling (procedure) yes Invalid Interpretation Code [employer] Work Phone: [phone] General cardiovascular disease 10Y risk [#] [place]D'Agost[place] 15 % Invalid Interpretation Code [employer] Work Phone: [phone] Clinical Lists Update: Pre11-12-2014 Magnesium 1.6 mg/dL Low [facility] Work Phone: Office Visiton 08-05-2014 cardiac risk group B Invalid Interpretation Code [employer] Work Phone: [phone] Clinical Lists Update: Pre05-23-2014 Cholesterol 171 mg/dL Invalid Interpretation Code [facility] Work Phone: [phone] HDL Cholesterol 46 mg/dL Invalid Interpretation Code [employer] Work Phone: [phone] LDL Cholesterol 109 mg/dL Invalid Interpretation Code [employer] Work Phone: [phone] Triglyceride 78 mg/dL Invalid Interpretation Code [facility] Work Phone: [phone] very low density lipoproteins 16 mg/dL Invalid Interpretation Code [facility] Work Phone: [phone] Clinical Lists Update: Pre05-22-2014 basophils as percent of blood leukocytes, manual count 0.5 % Invalid Interpretation Code [employer] Work Phone: [phone] eosinophils as percent of blood leukocytes, manual count 0.7 % Invalid Interpretation Code [employer] Work Phone: [phone] Erythrocytes (RBC) 4.37 10*6/uL Invalid Interpretation Code [employer] Work Phone: [phone] Hematocrit (HCT) 40.7 % Invalid Interpretation Code [employer] Work Phone: [phone] Hemoglobin (HGB) 13.9 g/dL Invalid Interpretation Code [employer] Work Phone: [phone] Lymphocytes/100 leukocytes 15.7 % Low [employer] Work Phone: [phone] MCH 31.8 pg Invalid Interpretation Code [employer] Work Phone: [phone] MCHC 34.2 g/dL Invalid Interpretation Code [employer] Work Phone: [phone] MCV 93.1 fL Invalid Interpretation Code [employer] Work Phone: [phone] Monocytes/100 leukocytes 6.6 % Invalid Interpretation Code [employer] Work Phone: [phone] neutrophils, band form as percent of blood leukocytes, manual count 76.3 % High [employer] Work Phone: [phone] Platelets 244 10*3/mm3 Invalid Interpretation Code [employer] Work Phone: [phone] RDW-CA 13.0 % Invalid Interpretation Code [employer] Work Phone: [phone] Thyroid stimulating hormone (TSH) 0.88 u[iU]/mL Invalid Interpretation Code [employer] Work Phone: [phone] WBC (Leukocytes) 6.1 10*3/uL Invalid Interpretation Code [employer] Work Phone: [phone] Clinical Lists Update: 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 06-23-2012 Albumin 4.0 g/dL Invalid Interpretation Code [employer] Work Phone: [phone] Albumin/Globulin Ratio 1.0 {ratio} Invalid Interpretation Code [employer] Work Phone: [phone] Alkaline phosphatase (ALP) 95 U/L Inval id Interpretation Code [employer] Work Phone: [phone] Aspartate aminotransferase (AST) 24 U/L Invalid Interpretation Code [facility] Work Phone: [phone] Bilirubin (total) 0.20 mg/dL Invalid Interpretation Code [facility] Work Phone: [phone] Globulin 3.9 g/dL Invalid Interpretation Code [employer] Work Phone: [phone] Protein 7.9 g/dL Invalid Interpretation Code [employer] Work Phone: [phone] Lab Reporton 06-13-2011 Alanine aminotransferase (ALT) 42 U/L Invalid Interpretation Code [facility] Work Phone: Bilirubin (direct) 0.12 mg/dL Invalid Interpretation Code [facility] Work Phone: Vital Signs Date Time Vital Sign Value Performing Clinician Facility 08-13-2024 07:56-0400 Diastolic blood pressure 103 mm[Hg] Seth Chowdary MD Work Phone: [facility] 08-13-2024 07:56-0400 Heart rate 98 /min Seth Chowdary MD Work Phone: [facility] 08-13-2024 07:56-0400 Systolic blood pressure 148 mm[Hg] Seth Chowdary MD Work Phone: [facility] 08-13-2024 07:52-0400 Body height 147.3 cm Seth Chowdary MD Work Phone: [facility] 08-13-2024 07:52-0400 Body mass index (BMI) [Ratio] 31.33 kg/m2 Seth Chowdary MD Work Phone: [facility] 08-13-2024 07:52-0400 Body weight 68 kg Seth Chowdary MD Work Phone: [facility] 08-13-2024 07:52-0400 Respiratory rate 18 /min Seth Chowdary MD Work Phone: [facility] 07-21-2024 12:56-0400 Body height 147.3 cm Jovanni Matthew MD Work Phone: [facility] 07-21-2024 12:56-0400 Body mass index (BMI) [Ratio] 31.35 kg/m2 Jovanni Matthew MD Work Phone: [facility] 07-21-2024 12:56-0400 Body weight 68.04 kg Jovanni Matthew MD Work Phone: [facility] 07-21-2024 12:56-0400 Diastolic blood pressure 75 mm[Hg] Jovanni Matthew MD Work Phone: [facility] 07-21-2024 12:56-0400 Heart rate 98 /min Jovanni Matthew MD Work Phone: [facility] 07-21-2024 12:56-0400 SaO2% (BldA) [Mass fraction] 96 % Jovanni Matthew MD Work Phone: [facility] 07-21-2024 12:56-0400 Systolic blood pressure 109 mm[Hg] Jovanni Matthew MD Work Phone: [facility] 05-21-2024 08:45-0500 Heart rate 71 /min Dr. Michael Snowden MD Work Phone: [facility] 05-21-2024 08:40-0500 Body temperature 98 [degF] Dr. Michael Snowden MD Work Phone: [facility] 05-21-2024 08:40-0500 Diastolic blood pressure 87 mm[Hg] Dr. Michael Snowden MD Work Phone: [facility] 05-21-2024 08:40-0500 Respiratory rate 17 /min Dr. Michael Snowden MD Work Phone: [facility] 05-21-2024 08:40-0500 SaO2% (BldA) [Mass fraction] 95 % Dr. Michael Snowden MD Work Phone: [facility] 05-21-2024 08:40-0500 Systolic blood pressure 144 mm[Hg] Dr. Michael Snowden MD Work Phone: [facility] 05-18-2024 11:00-0500 Body mass index (BMI) [Ratio] 32.5 kg/m2 Dr. Michael Snowden MD Work Phone: [facility] 05-18-2024 11:00-0500 Body weight 70.[address] Michael Snowden MD Work Phone: [facility] 05-15-2024 05:41-0500 Inhaled oxygen flow rate 97 L/min Dr. Michael Snowden MD Work Phone: 2(598)266-705551 [place] [address] 05-12-2024 13:31-0500 Body height 147.[address] Michael Snowden MD Work Phone: 9(247)119-334351 [place] [address] 04-16-2024 10:20-0500 Heart rate 70 /min Dr. Michael Snowden MD Work Phone: 6(970)544-929351 [place] [address] 04-16-2024 10:10-0500 Body temperature 98.3 [degF] Dr. Michael Snowden MD Work Phone: 7(714)299-455551 [place] [address] 04-16-2024 10:10-0500 Diastolic blood pressure 71 mm[Hg] Dr. Michael Snowden MD Work Phone: 5(582)615-385335 [place] [address] 04-16-2024 10:10-0500 Respiratory rate 18 /min Dr. Michael Snowden MD Work Phone: 2(749)891-970235 [place] [address] 04-16-2024 10:10-0500 SaO2% (BldA) [Mass fraction] 95 % Dr. Michael Snowden MD Work Phone: 5(766)491-014751 [place] [address] 04-16-2024 10:10-0500 Systolic blood pressure 109 mm[Hg] Dr. Michael Snowden MD Work Phone: 1(396)249-694951 [place] [address] 04-15-2024 15:36-0500 Body weight 70.[address] Michael Snowden MD Work Phone: 0(001)379-332435 [place] [address] 04-11-2024 14:41-0500 Body mass index (BMI) [Ratio] 32.5 kg/m2 Dr. Michael Snowden MD Work Phone: 9(661)398-844051 [place] [address] 03-31-2024 00:00-0500 Body temperature 98 [degF] Dr. Michael Snowden MD Work Phone: 6(707)066-130051 [place] [address] 03-31-2024 00:00-0500 Diastolic blood pressure 78 mm[Hg] Dr. Michael Snowden MD Work Phone: 1(526)850-506851 [place] [address] 03-31-2024 00:00-0500 Heart rate 84 /min Dr. Michael Snowden MD Work Phone: 4(614)565-764651 [place] [address] 03-31-2024 00:00-0500 Respiratory rate 16 /min Dr. Michael Snowden MD Work Phone: [facility] 03-31-2024 00:00-0500 SaO2% (BldA) [Mass fraction] 99 % Dr. Michael Snowden MD Work Phone: [facility] 03-31-2024 00:00-0500 Systolic blood pressure 145 mm[Hg] Dr. Michael Snowden MD Work Phone: 5(144)951-334951 [place] [address] 05-09-2023 13:06-0500 Body height 149.[address] Michael Snowden Work Phone: 8(866)254-360004 [address] 05-09-2023 13:06-0500 Body mass index (BMI) [Ratio] 30.9 kg/m2 Dr. Michael Snowden Work Phone: 0(702)974-285251 [place] [address] 05-09-2023 13:06-0500 Body weight 69.[address] Michael Snowden Work Phone: 8(543)530-567751 [place] [address] 05-09-2023 13:06-0500 Diastolic blood pressure 86 mm[Hg] Dr. Michael Snowden Work Phone: 0(879)869-511351 [place] [address] 05-09-2023 13:06-0500 Heart rate 59 /min Dr. Michael Snowden Work Phone: 3(841)739-698051 [place] [address] 05-09-2023 13:06-0500 Respiratory rate 18 /min Dr. Michael Snowden Work Phone: 4(630)190-211451 [place] [address] 05-09-2023 13:06-0500 SaO2% (BldA) [Mass fraction] 95 % Dr. Michael Snowden Work Phone: 5(124)098-107651 [place] [address] 05-09-2023 13:06-0500 Systolic blood pressure 154 mm[Hg] Dr. Michael Snowden Work Phone: 8(671)762-011451 [place] [address] 01-06-2023 14:34-0400 Body height 149.[address] Michael Snowden Work Phone: 6(895)224-113051 [place] [address] 01-06-2023 14:34-0400 Body mass index (BMI) [Ratio] 29.9 kg/m2 Dr. Michael Snowden Work Phone: [facility] 01-06-2023 14:34-0400 Body weight 67.[address] Michael Snowden Work Phone: [facility] 01-06-2023 14:34-0400 Diastolic blood pressure 80 mm[Hg] Dr. Michael Snowden Work Phone: [facility] 01-06-2023 14:34-0400 Heart rate 54 /min Dr. Michael Snowden Work Phone: [facility] 01-06-2023 14:34-0400 Respiratory rate 18 /min Dr. Michael Snowden Work Phone: [facility] 01-06-2023 14:34-0400 SaO2% (BldA) [Mass fraction] 95 % Dr. Michael Snowden Work Phone: [facility] 01-06-2023 14:34-0400 Systolic blood pressure 171 mm[Hg] Dr. Michael Snowden Work Phone: [facility] 01-04-2022 08:47-0400 Body height 149.[address] Michael Snowden Work Phone: [facility] Work Phone: 01-04-2022 08:47-0400 Body mass index (BMI) [Ratio] 31.3 kg/m2 Dr. Michael Snowden Work Phone: [facility] Work Phone: 01-04-2022 08:47-0400 Body weight 70.[address] Michael Snowden Work Phone: [facility] Work Phone: 01-04-2022 08:47-0400 Heart rate 52 /min Dr. Michael Snowden Work Phone: [facility] Work Phone: 01-04-2022 08:47-0400 Respiratory rate 16 /min Dr. Michael Snowden Work Phone: [facility] Work Phone: 01-04-2022 08:47-0400 SaO2% (BldA) [Mass fraction] 98 % Dr. Michael Snowden Work Phone: [facility] Work Phone: 12-17-2016 13:13-0400 BMI (Body Mass [...] 13:18-0400 Pulse (Heart Rate) 67 /min [facility] Work Phone: 03-19-2006 10:28-0500 Body [...] Date Encounter Type Care Provider Facility Start: 11-02-2024 ambulatory Michael Chi Sp Facility:[facility] Start: 10-14-2024 ambulatory Michael Chi [facility] Facility:[facility] Start: 09-28-2024 ambulatory Michael Chi [facility] Facility:[facility] Start: 09-21-2024 ambulatory Michael Chi [facility] Facility:[facility] Start: 09-14-2024 ambulatory Michael Chi Sp Facility:[facility] Start: 09-07-2024 End: 09-07-2024 Telephone encounter Ajay Grant MD Work Phone: Endocrinology Start: 09-07-[address] [facility] Facility:[facility] Start: 08-31-[address] [facility] Facility:[facility] Start: 08-31-2024 Audra Cabezas Start: 08-25-2024 End: 08-25-2024 ambulatory Ajay Grant MD Work Phone: Endocrinology Comment on above: Medication denial Start: 08-25-2024 End: 08-25-2024 E-mail encounter from caregiver Ajay Grant MD Work Phone: Endocrinology Start: 08-24-[address] [facility] Facility:[facility] Start: 08-24-2024 Nikia alonso MD -ANTHONY Cabezas Start: 08-22-2024 End: 08-22-2024 Telephone encounter Ajay Grant MD Work Phone: Endocrinology & Metabolic [place] Comment on above: Medication Preauthor ization (Evenity 210mg- Denied) Start: 08-17-2024 End: 08-17-[address] Michael Snowden MD Work Phone: [facility] Work Phone: Start: 08-17-2024 End: 08-17-2024 Nikia Henderson MD -ANTHONY Cabezas Start: 08-16-2024 End: 08-17-2024 ambulatory Ajay Grant MD Work Phone: Endocrinology Comment on above: Medication update Start: 08-16-2024 End: 08-16-2024 E-mail encounter from caregiver Ajay Grant MD Work Phone: Endocrinology Start: 08-13-2024 End: 08-13-2024 Patient encounter procedure Seth Chowdary MD Work Phone: Spine [place] Comment on above: Acquired spondylolis thesis (Primary Dx); Cervical spondylosis without myelopathy; Neural foraminal stenosis of lumbar spine; Closed compression fracture of body of L1 vertebra (HCC) Start: 08-13-2024 End: 08-13-2024 ambulatory SETH CHOWDARY Facility:[facility] Start: 08-10-2024 End: 08-10-[address] Michael Snowden MD Work Phone: [facility] Work Phone: Start: 08-10-2024 End: 08-10-2024 Nikia Cabezas Start: 08-10-2024 End: 08-10-2024 ambulatory Michael Snowden Facility:[facility] Start: 08-03-2024 End: 08-03-[address] Michael Snowden MD Work Phone: [facility] Work Phone: Start: 08-03-2024 End: 08-03-2024 Audra Cabezas Start: 08-03-2024 End: 08-03-2024 ambulatory Michael Snowden Facility:[facility] Start: 07-27-2024 End: 07-27-2024 Audra Cabezas Start: 07-27-2024 End: 07-27-[address] [facility] Paulo Snowden Facility:[facility] Start: 07-21-2024 End: 07-21-2024 ambulatory MILLIE PETTY Facility:[facility] Start: 07-21-2024 End: 07-21-2024 ambulatory AJAY GRANT Facility:[facility] Start: 07-21-2024 End: 07-21-2024 Patient encounter procedure Jovanni Matthew MD Work Phone: Rehab Medicine Comment on above: Osteopenia, unspecif ied location (Primary Dx); History of vertebral compression fracture; Spondylolisthesis, grade 3 Start: 07-21-2024 End: 07-21-2024 ambulatory JOVANNI MATTHEW Facility:[facility] Start: 07-20-2024 End: 07-20-[address] Michael Snowden MD Work Phone: [facility] Work Phone: Start: 07-20-2024 End: 07-20-2024 Nikia Cabezas Start: 07-20-2024 End: 07-20-2024 ambulatory Michael Chi Sp Facility:[facility] Start: 07-13-2024 End: 07-13-[address] Michael Snowden MD Work Phone: [facility] Work Phone: Start: 07-13-2024 End: 07-13-2024 Nikia Cabezas Start: 07-13-2024 End: 07-13-2024 ambulatory Michael Chi Sp Facility:[facility] Start: 07-06-2024 Registered Referred Nikia Cabezas Start: 07-06-2024 End: 07-06-2024 Nikia Cabezas Start: 07-06-2024 End: 07-06-2024 ambulatory Michael Chi Sp Facility:[facility] Start: 06-29-2024 Registered Referred Audra izaguirre CHIPPER MACHINE OPERATOR-C -[facility] [place] Start: 06-29-2024 End: 06-29-2024 Audra Drake NP-C -[facility] [place] Start: 06-29-2024 End: 06-29-2024 ambulatory Michael Chi Sp Facility:[facility] Start: 06-23-2024 End: 06-23-2024 ambulatory Audra Drake CHIPPER MACHINE OPERATOR Facility:[facility] Start: 06-23-2024 End: 06-23-2024 Audra Drake CHIPPER MACHINE OPERATOR-C -[facility] Work Phone: Start: 06-22-2024 End: 06-22-[address] Michael Snowden MD Work Phone: [facility] Work Phone: Start: 06-22-2024 Registered Referred Audra izaguirre NP-C -[facility] [place] Start: 06-22-2024 End: 06-22-2024 Audra Cabezas Start: 06-22-2024 End: 06-22-2024 ambulatory Michael Chi Sp Facility:[facility] Start: 06-15-2024 End: 06-15-[address] Michael Snowden MD Work Phone: [facility] Work Phone: Start: 06-15-2024 End: 06-15-2024 Departed Referred Nikia Cabezas Start: 06-15-2024 Registered Referred Nikia Cabezas Start: 06-15-2024 End: 06-15-2024 Nikia Cabezas Start: 06-15-2024 End: 06-15-2024 ambulatory Michael Chi Sp Facility:[facility] Start: 06-08-2024 End: 06-08-2024 Departed Referred Nikia Cabezas Start: 06-08-2024 Registered Referred Nikia Cabezas Start: 06-08-2024 End: 06-08-2024 Nikia Cabezas Start: 06-08-2024 End: 06-08-2024 ambulatory Michael Chi Sp Facility:[facility] Start: 06-01-2024 End: 06-01-[address] Michael Snowden MD Work Phone: [facility] Work Phone: Start: 06-01-2024 End: 06-01-2024 Departed Referred Nikia Cabezas Start: 06-01-2024 End: 06-01-2024 Nikia Cabezas Start: 06-01-2024 End: 06-01-2024 ambulatory Michael Chi Sp Facility:[facility] Start: 05-25-2024 End: 05-25-2024 ambulatory Michael Chi Sp Facility:[facility] Start: 05-25-2024 End: 05-25-[address] Nikia Henderson MD -[facility] Work Phone: Start: 05-25-2024 End: 05-25-2024 Dr. Nikia Henderson MD -[facility] Work Phone: Start: 05-21-2024 End: 05-21-2024 ambulatory Audra Drake CHIPPER MACHINE OPERATOR Facility:[facility] Start: 05-21-2024 End: 05-21-2024 Patient encounter procedure Audra Drake CHIPPER MACHINE OPERATOR-C -[facility] Work Phone: Start: 05-21-2024 End: 05-21-2024 Audra Drake CHIPPER MACHINE OPERATOR-C -[facility] Work Phone: Start: 04-16-2024 End: 05-21-2024 Dr. Michael Snowden MD -Transitional Care Unit Start: 04-16-2024 End: 05-21-2024 Evaluation and management of inpatient Dr. Michael Snowden MD -Transitional Care Unit Start: 04-16-2024 Non-patient / Non-visit Dr. Minerva Hernandez MD -[facility] Work Phone: Start: 04-16-2024 Dr. Gabo Hernandez MD -[facility] Work Phone: Start: 04-15-2024 Non-patient / Non-visit Dr. Minerva Hernandez MD -[facility] Work Phone: Start: 04-15-2024 Dr. Gabo Hernandez MD -[facility] Work Phone: Start: 04-14-2024 ambulatory Michael Snowden [facility] Start: 04-14-2024 End: 04-16-2024 Evaluation and management of inpatient Dr. Gabo Hernandez MD -[facility] Work Phone: Start: 04-14-2024 End: 04-16-2024 Dr. Gabo Hernandez MD -[facility] Work Phone: Start: 04-14-2024 Non-patient / Non-visit Dr. Minerva Hernandez MD [facility] Work Phone: Start: 04-14-2024 Dr. Gabo Hernandez MD [facility] Work Phone: Start: 04-14-2024 End: 04-14-2024 ambulatory Michael Chi Sp Facility:[facility] Start: 04-14-2024 End: 04-14-2024 Non-patient / Non-visit Dr. Indu Pacheco MD [facility] Work Phone: Start: 04-14-2024 End: 04-14-2024 Dr. Indu Pacheco MD [facility] Work Phone: Start: 04-13-2024 Non-patient / Non-visit Dr. Minerva Hernandez MD [facility] Work Phone: Start: 04-13-2024 Dr. Gabo Hernandez MD [facility] Work Phone: Start: 04-12-2024 Non-patient / Non-visit Dr. Gaby Watkins MD [facility] Work Phone: Start: 04-12-2024 Dr. Lesli mccoy MD [facility] Work Phone: Start: 04-11-2024 ambulatory Michael Chi Sp [facility] Start: 04-11-2024 Non-patient / Non-visit Dr. Gaby Watkins MD [facility] Work Phone: Start: 04-11-2024 Dr. Lesli mccoy MD [facility] Work Phone: Start: 03-30-2024 End: 03-31-2024 Dr. Floridalma Bingham DO -Emergency Department Work Phone: Start: 03-30-2024 End: 03-31-2024 Emergency department patient visit Dr. Floridalma Bingham DO -Emergency Department Work Phone: Start: 03-25-2024 End: 03-25-2024 ambulatory Michael Chi Sp Facility:[facility] Start: 03-25-2024 End: 03-25-[address] Michael Snowden MD -Physical Therapy Work Phone: Start: 03-25-2024 End: 03-25-2024 Dr. Michael Snowden MD -Physical Therapy Work Phone: Start: 02-25-2024 End: 02-25-2024 Emergency department patient visit Fahadhenrietta Martinez Facility:[facility] Start: 02-23-2024 End: 02-23-2024 ambulatory Michael Chi Sp Facility:[facility] Start: 01-08-2024 End: 01-08-2024 ambulatory Michael Chi Sp Facility:[facility] Start: 12-15-2023 End: 12-15-2023 ambulatory Michael Chi Sp Facility:[facility] Start: 11-13-2023 End: 11-13-2023 ambulatory Sekou Brooks Facility:[facility] Start: 11-10-2023 End: 11-10-2023 ambulatory Michael Chi Sp Facility:[facility] Start: 06-20-[address] Michael guillen Work Phone: [facility]-Physical Therapy Work Phone: Start: 06-19-2023 Non-patient / Non-visit Dr. Augusto Snowden Work Phone: [facility] Start: 06-19-2023 End: 06-19-[address] Michael Snowden Work Phone: [facility] Work Phone: Start: 06-19-2023 End: 06-19-[address] Michael Snowden Work Phone: [facility]-Cardiovascular Services Work Phone: Start: 05-30-[address] Michael guillen Work Phone: [facility]-Physical Therapy Work Phone: Start: 05-28-2023 End: 05-28-[address] Michael Snowden Work Phone: [facility] Work Phone: Start: 05-28-2023 End: 05-28-[address] Michael Snowden Work Phone: [facility]-Laboratory, Phy Office 3rd Flr Start: 05-09-2023 End: 05-09-[address] Michael Snowden Work Phone: [facility] Work Phone: Start: 05-09-2023 End: 05-09-[address] Michael Snowden Work Phone: [facility] Work Phone: Start: 04-28-2023 End: 04-28-[address] Michael Snowden Work Phone: [facility] Work Phone: Start: 04-28-2023 End: 04-28-[address] Michael Snowden Work Phone: [facility]-Physical Therapy Work Phone: Start: 02-24-2023 End: 02-24-[address] Michael Snowden Work Phone: [facility] Work Phone: Start: 01-06-2023 End: 01-06-[address] Michael Snowden Work Phone: [facility] Work Phone: Start: 11-28-[address] Michael guillen Work Phone: [facility]-Physical Therapy Work Phone: Start: 11-27-2022 End: 11-27-[address] Michael Snowden Work Phone: [facility] Work Phone: Start: 11-27-2022 End: 11-27-[address] Michael Snowden Work Phone: [facility]-Laboratory, Phy Office 3rd Flr Start: 11-05-2022 End: 11-05-[address] Michael Snowden Work Phone: [facility] Work Phone: Start: 11-05-2022 End: 11-05-[address] Michael Snowden Work Phone: [facility]-Physical Therapy Work Phone: Start: 09-25-2022 End: 09-25-[address] Michael Snowden Work Phone: [facility] Work Phone: Start: 08-08-[address] Michael guillen Work Phone: [facility]-Physical Therapy Start: 08-05-2022 End: 08-05-[address] Michael Snowden Work Phone: [facility] Work Phone: Start: 08-05-2022 End: 08-05-[address] Michael Snowden Work Phone: [facility]-Laboratory, Specimen Start: 07-16-[address] Michael guillen Work Phone: [facility]-Physical Therapy Start: 07-16-2022 End: 07-16-[address] Michael Snowden Work Phone: [facility] Work Phone: Start: 07-16-2022 End: 07-16-[address] Michael Snowden Work Phone: [facility]-Ultrasound, [facility] Start: 06-10-[address] Michael guillen Work Phone: [facility]-Physical Therapy Start: 06-07-2022 End: 06-07-[address] Michael Snowden Work Phone: [facility] Work Phone: Start: 06-07-2022 End: 06-07-[address] Michael Snowden Work Phone: [facility] Start: 03-26-2022 End: 03-26-[address] Michael Snowden Work Phone: [facility] Work Phone: Start: 03-26-2022 End: 03-26-[address] [facility] Start: 02-15-[address] [facility] Start: 01-07-[address] [facility] guillen [facility] Start: 01-04-2022 End: 01-04-[address] Michael Snowden Work Phone: [facility] Start: 12-24-2021 End: 12-24-[address] Michael Snowden Work Phone: [facility] Work Phone: Start: 12-24-2021 End: 12-24-[address] [facility] Start: 09-25-2021 End: 09-25-2021 [facility] Start: 09-24-2021 [facility]istered [facility] Start: 03-19-2006 End: 03-19-2006 Patient encounter procedure Noreen Fast DO Work Phone: [facility] Start: 02-26-2006 End: 02-27-2006 Patient encounter procedure Noreen Fast DO Work Phone: [facility] Start: 02-26-2006 End: 02-26-2006 Historical Summary Noreen Hernandez DO Work Phone: [facility] Procedures [...] Mean corpuscular hem oglobin concentration determination Dr. Michale Snowden MD Work Phone: Start: 06-29-2024 Nucleated [...] Phone: Start: 05-21-2024 BUN/Creatinine ratio Dr Timur Snowedn MD Work Phone: Start: 05-21-2024 Estimated creatinine [...] months Cole Salazar Start: 12-17-2016 End: 12-17-2016 R Bret Daniels MD Start: 06-11-2016 End: 06-11-2016 PATIENT REGISTRATION CLERK Ashley Ernst PA-C Work Phone: Start: 06-11-2016 [...] KODAK Daniels MD Start: 02-08-2013 End: 02-08-2013 PATIENT REGISTRATION CLERK Ashley Ernst PA-C Work Phone: Start: 02-08-2013 [...] DTaP,Tdap,Td Vaccine (3 - Td or Tdap) [facility] Start: 07-22-2027 Diabetes Screening Diabetes Screenin g [facility] Start: 07-21-2025 BP Controlled (<130/80) BP Con trolled (<130/80) [facility] Start: 11-29-2024 Influenza vaccination Influenz a Vaccine (Season Ended) [facility] Start: 10-20-2024 End: 10-20-2024 Patient encounter procedure 10/20/2024 12:40 PM EDT Office Visit Endocrinology [address] [place] [address] Kimmie Lindsey MD [address] [place] [address] 3 month follow up Endocrinology Comment on above: 3 month follow up Start: 05-21-2024 Patient discharge [facility] Start: 05-20-2024 Development of care plan [facility] Start: 05-17-2024 Consultation for pain [facility] Start: 05-13-2024 Developing a treatme nt plan [facility] Start: 05-13-2024 Development of care plan [facility] Start: 05-07-2024 [facility] Start: 04-17-2024 Developing a treatme nt plan [facility] Start: 04-17-2024 Development of care plan [facility] Start: 04-16-2024 Admission procedure [facility] Start: 04-16-2024 Introduction of urin mee catheter [facility] Start: 04-16-2024 Measuring intake and output [facility] Start: 04-16-2024 Patient referral to dietitian [facility] Start: 04-16-2024 Referral to occupati onal therapist [facility] Start: 04-16-2024 Referral to service [facility] Start: 04-16-2024 Vital signs measurements [facility] Start: 04-16-2024 [facility] Start: 04-16-2024 Following clinical pathway protocol [facility] Start: 04-16-2024 Patient discharge [facility] Start: 04-16-2024 [facility] Start: 04-14-2024 Admission procedure [facility] Start: 04-11-2024 Application of intermittent pneumatic compression device [facility] Start: 04-11-2024 Following clinical pathway protocol [facility] Start: 04-11-2024 Assessment of risk o f venous thromboembolism [facility] Start: 04-11-2024 Consultation for pain [facility] Start: 04-11-2024 Inhalation therapy procedure [facility] Start: 04-11-2024 Insertion of cathete r into peripheral vein [facility] Start: 04-11-2024 Providing care accor ding to standard [facility] Start: 04-11-2024 Provision of activit y privileges [facility] Start: 04-11-2024 Referral to occupati onal therapist [facility] Start: 04-11-2024 Referral to service [facility] Start: 04-11-2024 [facility] Start: 04-11-2024 Admission procedure [facility] Start: 03-31-2024 Advance Directive Discussion Advance Directive Discussion [facility] Start: 03-31-2024 [facility] Start: 11-30-2023 Covid-19 Vaccine ( season) Covid-19 Vaccine ( season) [facility] Start: 11-30-2023 Influenza vaccination Influenza Vacc ine (#1) [facility] Start: 08-05-2022 Protein measurement [facility] Start: 2020 RSV Vaccine (1 - 1-d ose 75+ series) RSV Vaccine (1 - 1-dose 75+ series) [facility] Start: 06-16-2017 End: 06-16-2017 Appointment Appointment [facility] Work Phone: Start: 12-17-2016 End: 12-17-2016 *BMP *BMP [facility] Work Phone: Start: 12-17-2016 End: 12-17-2016 Follow Up Appt 6 months Follow Up Appt 6 months [facility] Work Phone: Start: 12-17-2016 End: 12-17-2016 JHR JHR [facility] Work Phone: Start: 12-17-2016 End: 12-17-2016 Remote 30 day ecg rev/report 30 Day Holter Monitor [facility] Work Phone: Start: 06-11-2016 End: 06-11-2016 PATIENT REGISTRATION CLERK PATIENT REGISTRATION CLERK [facility] Work Phone: Start: 06-11-2016 End: 06-11-2016 Follow Up Appt 6 months Follow Up Appt 6 months [facility] Work Phone: Start: 06-11-2016 End: 06-11-2016 Follow Up BP Check Follow Up BP Check [facility] Work Phone: Start: 06-13-2015 End: 06-06-2016 Follow Up Appt 1 year Follow Up Appt 1 year [facility] Work Phone: Start: 06-13-2015 End: 06-06-2016 MMM MMM [facility] Work Phone: Start: 03-08-2015 End: 03-08-2015 PATIENT REGISTRATION CLERK PATIENT REGISTRATION CLERK [facility] Work Phone: Start: 03-08-2015 End: 03-08-2015 Follow Up Appt 3 months Follow Up Appt 3 months [facility] Work Phone: Start: 08-05-2014 End: 08-05-2014 Follow Up Appt 6 months Follow Up Appt 6 months [facility] Work Phone: Start: 08-05-2014 End: 08-05-2014 MMM MMM [facility] Work Phone: Start: 02-10-2014 End: 02-10-2014 PATIENT REGISTRATION CLERK PATIENT REGISTRATION CLERK [facility] Work Phone: Start: 02-10-2014 End: 02-10-2014 Follow Up Appt 6 months Follow Up Appt 6 months [facility] Work Phone: Start: 08-13-2013 End: 08-13-2013 Follow Up Appt 6 months Follow Up Appt 6 months [facility] Work Phone: Start: 08-13-2013 End: 08-13-2013 MMM MMM [facility] Work Phone: Start: 02-08-2013 End: 02-08-2013 PATIENT REGISTRATION CLERK PATIENT REGISTRATION CLERK [facility] Work Phone: Start: 02-08-2013 End: 02-08-2013 Follow Up Appt 6 months Follow Up Appt 6 months [facility] Work Phone: Start: 08-13-2012 End: 02-01-2013 Follow Up Appt 6 months Follow Up Appt 6 months [facility] Work Phone: Start: 08-13-2012 End: 02-01-2013 MMM MMM [facility] Work Phone: Start: 02-04-2012 End: 02-04-2012 Follow Up Appt 6 months Follow Up Appt 6 months [facility] Work Phone: Start: 04-25-2011 Shingrix Vaccine (2 of 3) Shingrix Vaccine (2 of 3) [facility] Start: 03-19-2006 Provider Instruction s for Treatment FOLLOW UP IN 4 MONTHS [facility]; [facility] Work Phone: Start: 10-27-1963 Annual PCP Team [employer] apurva Disease Visit Annual PCP Team Chronic Disease Visit [facility] Start: 10-27-1963 Anxiety Screening Anxiety Screening [facility] Start: 10-27-1963 BP Controlled (<130/80) BP Con trolled (<130/80) [facility] Start: 10-27-1963 Depression Screening Depression Scre ening [facility] Start: 10-27-1963 zzBP Controlled (<130/80) (Retired) zzBP Controlled (<130/80) (Retired) [facility] CT Abdomen and Pelvi s W contrast IV [facility] Lactoferrin [Presenc e] in Stool by Immunoassay [facility] Patient Education [facility] Work Phone: Patient referral [facility] Work Phone: Protein measurement [facility] Immunizations Immunization Date Immunization Notes Care Provider Fa nazia 02-25-2024 tetanus toxoid, redu lalo diphtheria toxoid, and acellular pertussis vaccine, adsorbed Dr. Michael Snowden MD Work Phone: [facility] 05-13-2017 influenza virus vacc ine, unspecified formulation Jovanni Matthew MD Work Phone: [facility] 03-17-2015 pneumococcal conjuga te vaccine, 13 valent [facility] 12-24-2014 influenza, high dose seasonal, preservative-free Jovanni Matthew MD Work Phone: [facility] 01-11-2013 influenza virus vacc ine, unspecified formulation Jovanni Mathtew MD Work Phone: [facility] 02-28-2011 zoster vaccine, live Jovanni crump MD Work Phone: [facility] Work Phone: 02-19-2011 influenza virus vacc ine, unspecified formulation Jovanni Matthew MD Work Phone: [facility] 02-19-2011 pneumococcal polysaccharide vaccine, 23 valent [facility] 09-21-2007 tetanus toxoid, redu lalo diphtheria toxoid, and acellular pertussis vaccine, adsorbed Jovanni Matthew MD Work Phone: [facility] Payers Date Payer Category Payer Self-pay [id number] 2018 Medicare (Managed Care) [place] PA[place]NA [id number] 2013 Medicare [id number] Unknown [facility] [place] [facility] [place] Unknown [id number] .[id number]. 2.462 Unknown [id number] .1.142224.3.579. 2.462 Unknown [id number] .1.671372.3.579. 2.462 Unknown [id number] .1.365226.3.579. 2.462 Unknown [id number] 2.16.840.1.728673.3.579. 2.462 Unknown [id number] 2.16.840.1.746115.3.579. 2.462 Unknown [id number] 2.16.840.1.170305.3.579. 2.462 Unknown [id number] 2.16.840.1.087934.3.579. 2.462 Unknown [id number] 2.16.840.1.966352.3.579. 2.462 Unknown [id number] 2.16.840.1.011806.3.579. 2.462 Unknown [id number] 2.16.840.1.295418.3.579. 2.462 Unknown [id number] 2.840.1.371036.3.579. 2.462 Unknown [id number] 2.840.1.868521.3.579. 2.462 Unknown [id number] 2.840.1.435006.3.579. 2.462 Unknown [id number] 2.16.840.1.233985.3.579. 2.462 Unknown [id number] 2.16.840.1.846047.3.579. 2.462 Unknown [id number] 2.16.840.1.993510.3.579. 2.462 Unknown [id number] 2.840.1.387680.3.579. 2.462 Unknown [id number] 2.16.840.1.329774.3.579. 2.462 Unknown [id number] 2.16.840.1.052930.3.579. 2.462 Unknown [id number] 2.16.840.1.710318.3.579. 2.462 Unknown [id number] 2.16.840.1.159160.3.579. 2.462 Unknown [id number] 2.16.840.1.554700.3.579. 2.462 Unknown [id number] 2.16.840.1.410329.3.579. 2.462 Unknown [id number] 2.16.840.1.684417.3.579. 2.462 Unknown [id number] 2.16.840.1.326790.3.579. 2.462 Unknown [id number] 2.16840.1.540007.3.579. 2.462 Unknown [id number] 2.16840.1.251300.3.579. 2.462 Unknown [id number] 2.840.1.379794.3.579. 2.462 Unknown [id number] 2.840.1.289047.3.579. 2.462 Unknown [id number] 2.840.1.820962.3.579. 2.462 Unknown [id number] 2.840.1.136628.3.579. 2.462 Unknown [id number] 2.840.1.333732.3.579. 2.462 Unknown [id number] 2.840.1.836934.3.579. 2.462 Unknown [id number] 2.840.1.735555.3.579. 2.462 Unknown [id number] 2.840.1.683435.3.579. 2.462 Unknown [id number] 2.840.1.045718.3.579. 2.462 Unknown [id number] 2.16840.1.301852.3.579. 2.462 Unknown [id number] 2.16840.1.042441.3.579. 2.462 Unknown [id number] 2.16840.1.106056.3.579. 2.462 Unknown [id number] 2.16840.1.649588.3.579. 2.462 Unknown [id number] 2.16840.1.276234.3.579. 2.462 Social History Date Type Detail Facility Start: 04-10-2021 End: 05-09-2023 Tobacco smoking status NHIS Unknown if ever smoked [facility] Start: 09-21-2020 None [facility] Start: 09-21-2020 Homeless [facility] Start: 09-21-2020 Non-smoker [facility] Start: 1945 Sex Assigned At Female [facility] Start: 07-21-2024 End: 08-13-2024 Alcohol Use Alcohol Use [facility] Work Phone: Comment on above: Occasional alcohol u se tea once iin awhile Start: 04-16-2024 End: 07-21-2024 Tobacco smoking status NHIS Never smoked tobacco (finding) [facility] Start: 07-01-2024 End: 07-15-2024 Sex Female (finding) [facility] Start: 07-21-2024 Tobacco use and exposure Smokeless tobacco non-user [facility] Start: 07-21-2024 End: 08-13-2024 Alcoholic beverage intake Current drinker of alcohol (finding) [facility] Start: 07-21-2024 End: 08-13-2024 Tobacco use panel [facility] National Score (1-100), lower number is lower risk 75 [facility] Start: 07-21-2024 Tobacco Comment Mother smoked in childhood home. ETS exposure in a restaurant. [facility] Start: 02-19-2012 Alcohol Comment [facility] Start: 1945 Sex assigned at Not on file [facility] NEGATED: Highlighted row Not [facility] Goals Date Patient Goal Desired Activity /State Functional Status Date Assessment Result Facility 05-21-2024 Functional status Ambulates [facility] Work Phone: 04-16-2024 Functional status Ambulates [facility] Work Phone: 11-03-2014 Are you deaf, or do you have serious difficulty hearing No 11/03/2014 11:42 AM Dalila Nielsen RN No [facility] 11-03-2014 Are you blind, or do you have serious difficulty seeing, even when wearing glasses No 11/03/2014 11:42 AM Dalila Nielsen RN No [facility] 11-03-2014 Do you have serious difficulty walking or climbing stairs Yes 11/03/2014 11:42 AM Dalila Nielsen RN Yes [facility] 11-03-2014 Do you have difficul ty dressing or bathing No 11/03/2014 11:42 AM Dalila Nielsen RN No [facility] 11-03-2014 Because of a physica l, mental, or emotional condition, do you have difficulty doing errands alone such as visiting a physician's office or shopping Yes 11/03/2014 11:42 AM Dalila Nielsen RN Yes [facility] Mental Status Date Assessment Result Facility 05-21-2024 Cognitive function Voice/Name [facility] Work Phone: 05-17-2024 [facility]: 04-16-[facility]24 Cognitive function Voice/Name [facility] Work Phone: 11-03-2014 Because of a physica l, mental, or emotional condition, do you have serious difficulty concentrating, remembering, or making decisions Yes 11/03/2014 11:42 AM Dalila Nielsen RN Yes [facility] Clinical Notes 06-14-2022 to 08-22-2024 Telephone [...] your request via staff message to the [employer] [facility] ([id number]). You can find templates listed below to support your appeal in [email or web address] ([email or web address] drop down, select patient care, select send letter). If it is an urgent request, you can email the [place] Prior auth Team at [email or web address]. Please make sure the documents below are completed in order to process your request. If the appeal is denied, do you want to schedule a peer to peer Yes/No. We will schedule peer to peer automatically if yes. Thank You, [facility] ([place], [place]) Auth Appeals Team Endo PA Appeal letter Endo PA Letter of Medical Necessity Jorje [facility] Prior [employer]mediate School Teacher III Endocrinology & Metabolism [place] Letter scanned into chart [facility] 08-22-2024 Miscellaneous Notes Images from the [...] your request via staff message to the [employer] [facility] ([id number]). You can find templates listed below to support your appeal in [facility] ([email or web address] drop down, select patient care, select send letter). If it is an urgent request, you can email the [place] Prior auth Team at [email or web address]. Please make sure the documents below are completed in order to process your request. If the appeal is denied, do you want to schedule a peer to peer Yes/No. We will schedule peer to peer automatically if yes. Thank You, [facility] ([place], [place]) Auth Appeals Team Endo PA Appeal letter Endo PA Letter of Medical Necessity Jorje [facility] Prior Intermediate School Teacher III Endocrinology & Metabolism [place] Letter scanned into chart documented in this encounter [facility] 08-13-2024 Note HNO ID: [id number] Author: SETH CHOWDARY MD Service: ? Author Type: Physician Type: Progress Notes Filed: 08/13/2024 08:45 Note Text: SPINE SURGERY OUTPATIENT CONSULT This is an in-person visit. SERVICE DATE: 08/13/2024 PCP: Michael Snowden MD REFERRING PROVIDER: Jovanni Matthew [address] [facility] [address] Lizette Davies is a 78 year old [...] walked recently and [facility] resides in a [facility] facility. She does not report bowel or [...] disease), cervical MRI scanned into [facility] 11, 2014 ([facility]) DDD (degenerative disc disease), lumbosacral Essential [...] 12/31/13 EGD ESOPHAGOGASTRODUODENOSCOPY TRANSORAL DIAGNOSTIC 02/16/15 EGD [facility] inpt ESOPHAGOGASTRODUODENOSCOPY TRANSORAL DIAGNOSTIC 05/11/15 EGD EXTRACTION, ERUPTED TOOTH OR EXPOSED ROOT (ELEVATION AND/OR FORCEPS REMOVAL) [place] teeth FOOT RIGHT OP SURGERY 01/2009 PAST SURGICAL HISTORY OF 1996 Bone fusion 1st MT and pin right foot PAST S (more content not included)... [facility] 08-13-2024 History of Presen t illness Narrative SPINE SURGERY OUTPATIENT CONSULT This is an in-person visit. SERVICE DATE: 08/13/2024 PCP: Michael Snowden MD REFERRING PROVIDER: Jovanni Matthew [id number] [facility] [address] Lizette Davies is a 78 year old [...] walked recently and currently resides in a [facility] facility. She does not report bowel or [...] O+ Compression fracture of thoracic vertebra ([facility]) DDD (degenerative disc disease), cervical MRI scanned into [facility] January 11, 2014 ([facility]) DDD (degenerative disc disease), lumbosacral Essential [...] 12/31/13 EGD ESOPHAGOGASTRODUODENOSCOPY TRANSORAL DIAGNOSTIC 02/16/15 EGD [facility] inpt ESOPHAGOGASTRODUODENOSCOPY TRANSORAL DIAGNOSTIC 05/11/15 EGD EXTRACTION, ERUPTED TOOTH OR EXPOSED ROOT (ELEVATION AND/OR FORCEPS REMOVAL) 1969's [place] teeth FOOT RIGHT OP SURGERY 01/2009 PAST [...] needed for nausea/vomiting. COMPOUNDED PRESCRIPTION Home Health deck hand, aide, PT. Dx: Bilat sprained ankles, gait instability. acetaminophen (TYLENOL EXTRA STRENGTH) 500 mg tablet Take 1 tablet by mouth every 6 hours as needed for Pain. metoprolol succinate ER (TOPROL XL) 25 mg 24 hr tablet Take 1 tablet by mouth twice daily. (prescribed by Dr. Daniesl) (Patient taking differently: Take 25 mg by mouth two times a day. 12.5mg 2 times per day) Cholecalciferol, Vitamin D3, (VITAMIN D-3) 5,000 unit tab Take 5,000 Units by mouth once daily. (Patient not taking: Reported on 07/21/2024) COMPOUNDED PRESCRIPTION [employer] microbial defense 17 drops [...] 7:55 AM PAGER: documented in this encounter [facility] 07-21-2024 Note HNO ID: [id number] Author: MILLIE PETTY MD Service: ? Author [...] taking: Reported on 07/21/2024) COMPOUNDED PRESCRIPTION [employer]iki [employer] defense 17 drops daily and working up to 60 drops daily (in divided doses). Serving size 30 drops. Mineral water and ethanol 20-24%) (Patient not taking: Reported on 07/21/2024) OTC NUTRITIONAL SUPPLEMENT zypan supplement (Patient not taking: Reported on 07/21/2024) COMPOUNDED PRESCRIPTION Home Health deck hand, itzel, PT. Dx: Bilat sprained ankles, gait [...] O+ Compression fracture of thoracic vertebra ([facility]) DDD (degenerative disc disease), cervical MRI scanned into [facility] January 11, 2014 ([facility]) DDD (degenerative disc disease), lumbosacral Essential [...] PFRMD 11/24/2000 Co (more content not included)... [facility] 07-21-2024 Instructions Jovanni Matthew MD - 07/21/2024 1:43 PM EDT Bring records including bone density testing to appointments with metabolic bone and spine surgeon Pain medication per pain management documented in this encounter [facility] 07-21-2024 Note HNO ID: [id number] Author: MILLY SINGH RN Service: ? Author [...] were reviewed: CD, reports Milly Singh RN [facility] 07-21-2024 History of Presen t illness Narrative [...] transitional care- ECF - PT stopped at [facility]. Can walk some with walker- about [...] disease), cervical MRI scanned into [facility] January 11, 2014 ([facility]) DDD (degenerative disc disease), lumbosacral Essential [...] 12/31/13 EGD ESOPHAGOGASTRODUODENOSCOPY TRANSORAL DIAGNOSTIC 02/16/15 EGD [facility] inpt ESOPHAGOGASTRODUODENOSCOPY TRANSORAL DIAGNOSTIC 05/11/15 EGD EXTRACTION, ERUPTED TOOTH OR EXPOSED ROOT (ELEVATION AND/OR FORCEPS REMOVAL) [place] teeth FOOT RIGHT OP SURGERY 01/2009 PAST [...] Units by mouth once daily. COMPOUNDED PRESCRIPTION [employer] microbial defense 17 drops daily and working up to 60 drops daily (in divided doses). Serving size 30 drops. Mineral water and ethanol 20-24%) OTC NUTRITIONAL SUPPLEMENT zypan supplement COMPOUNDED PRESCRIPTION Home Health deck hand, aide, PT. Dx: Bilat sprained ankles, gait [...] cervical and LS ddd, HTN, gastroparesis, h/o NM, h/o GIB, sarcoidosis, leg SCC, with h/o [...] which included preparing to see the patient, [id number] patient care, completing clinical documentation, obtaining and/or reviewing separately obtained history, performing a medically appropriate examination, counseling and educating the patient/family/caregiver, ordering medications, tests, or procedures, and communicating with other HCPs (not separately reported). documented in this encounter [facility] 07-21-2024 Note HNO ID: [id number] Author: JOVANNI MATTHEW MD Service: ? Author [...] transitional care- ECF - PT stopped at [facility]. Can walk some with walker- about [...] disease), cervical MRI scanned into [facility] January 11, 2014 ([facility]) DDD (degenerative disc disease), lumbosacral Essential [...] 12/31/13 EGD ESOPHAGOGASTRODUODENOSCOPY TRANSORAL DIAGNOSTIC 02/16/15 EGD [facility] inpt ESOPHAGOGASTRODUODENOSCOPY TRANSORAL DIAGNOSTIC 05/11/15 EGD EXTRACTION, ERUPTED TOOTH OR EXPOSED ROOT (ELEVATION AND/OR FORCEPS REMOVAL) [place] teeth FOOT RIGHT OP SURGERY 01/2009 PAST SURGICAL HISTORY OF 1996 Bone fusion 1st MT and pin right foot PAST SURGICAL HISTORY OF 01/2013 left carpal tunnel surgery PAST SURGICAL HISTORY OF right Lasik 2001 PAST SURGICAL HISTORY OF 09/13 Skin (more content not included)... [facility] 05-19-2024 Note [facility] 05-18-2024 Note [facility] 04-16-2024 Evaluation note Diagnosis Onset Date Resolution [...] low back pain resolved April 16 3:42pm [facility] Work Phone: 1(515) 907-123301-17-2025 [facility]01-17-2025 [facility]01-15-2025 Evaluation note* Diagnosis Onset Date Resolution Status [...] back pain resolved April 16, 2024 3:42pm [facility] Work Phone: 1(449) 284-110901-15-2025 [facility]01-14-2025 [facility]02-02-2024 Discharge summary Author Geo Phillip [facility] May 02, 2023 3:54pm Note Date/Time May 02, 2023 3 :54pm [facility] Physical Therapy [facility] [address] [place] [address]. [address] [place] [address] / REHABILITATION SERVICES DISCHARGE SUMMARY MR#: [id number] Acct: [id number] Name: LIZETTE DAVIES Rep #: [id number] : 1945 77 From: Geo Phillip PT, [...] please feel free to call me at [phone]. Thank you for the referral of thispatient. Sincerely, Geo Phillip PT, ATC Balance/Gait/Functional tests Balance/Special Test Scores Lower Extremity Functional Score: 19 Improvement % Improvement: 60 <Electronically signed by Geo Phillip PT, ATC> 05/02/23 [id number] CC: Dr. Michael Snowden MD ~ [facility] Signed [facility] Work Phone: 1(365) 610-193303-17-2023 Discharge summary Author Geo Phillip [facility] June 14, 2022 3:55pm Note Date/Time June 14, 2022 3:4 9pm [facility] Physical Therapy [facility] [address] [place] [address] [address] [place] [address] / REHABILITATION SERVICES DISCHARGE SUMMARY MR#: [id number] Acct: [id number] Name: LIZETTE DAVIES Rep #: [id number] : 1945 76 From: Geo Phillip PT, ATC Referring DrTimur: Dr. Michael Snowden MD Status: REG RCR [...] please feel free to call me at [phone]. Thank you for the referral of thispatient. Sincerely, Geo Phillip, PT, ATC Balance/Gait/Functional tests - Balance/Special Test Scores Lower Extremity Functional Score: 12 <Electronically signed by Geo Phillip PT, ATC> 06/14/22 1549 CC: Dr. Michael Snowden MD ~ [facility] Signed [facility] Work Phone: Evaluation noteNo assessment information available [facility] Work Phone: Evaluation note* Diagnosis Onset Date Resolution Status Essential (primary) hypertension chronic Nonrheumatic aortic (valve) stenosis chronic Supraventricular tachycardia chronic [facility] Work Phone: Evaluation note* Diagnosis Onset Date Resolution Status Abdominal pain acute Diarrhea chronic [facility] Work Phone: Evaluation note* Diagnosis Onset Date Resolution Status Cellulitis acute Gastroparesis acute Diarrhea chronic [facility] Work Phone: Evaluation note* Diagnosis Onset Date Resolution Status Essential (primary) hypertension chronic Nonrheumatic aortic (valve) stenosis chronic Supraventricular tachycardia chronic Cellulitis acute Gastroparesis acute Diarrhea chronic [facility] Work Phone: Evaluation note* Diagnosis Onset Date Resolution Status Cellulitis acute Gastroparesis acute Diarrhea chronic Essential (primary) hypertension chronic Nonrheumatic aortic (valve) stenosis chronic Supraventricular tachycardia chronic [facility] Work Phone: Evaluation note* Diagnosis Osteopenia, unspecified location- Primary History of vertebral compression fracture Spondylolisthesis, grade 3 Acquired spondylolisthesis [facility] Acquired spondylolisthesis- Primary Cervical spondylosis without myelopathy Neural foraminal stenosis of lumbar spine Spinal stenosis, lumbar region, without neurogenic claudication Closed compression fracture of body of L1 vertebra (HCC) [facility] Diagnosis Age-related osteoporosis with current pathological fracture, initial encounter- Primary documented in this encounter [facility] Chief Complaint and Reason for Visit [...] 3 M FU Pain in left knee [id number] Reason for Visit Cellulitis Gastroparesis Diarrhea Essential (primary) hypertension Nonrheumatic aortic (valve) stenosis Supraventricular tachycardia Chief Complaint BALANCE RX HERE 3 M FU Pain in left knee MURMUR, SVT [id number] Reason for Visit Essential (primary) hypertension Nonrheumatic [...] 10:56am ADMISSION EXAM May 25, 2024 1:55pm [facility] June 01, 2024 4: 00am [facility] June 08, 2024 4 :00am Reason for Visit Admit Date Age-related osteoporosis wit h current pathol fracture of vertebra April 14, 2024 3:42pm Compression fracture of L1 [facility] 2024 3:42pm Radiculopathy of lumbar region March [...] March 312024 3:42pm Radiculopathy of lumbosacral region Ralphru caban 2024 3:42pm Vitamin D deficiency April [...] 10:56am ADMISSION EXAM May 25, 2024 1:55pm [facility] June 01, 2024 4: 00am [facility] June 08, 2024 4 :00am [facility] June 15, 2024 5 :00am [...] 10:56am ADMISSION EXAM May 25, 2024 1:55pm [facility] June 01, 2024 4: 00am [facility] June 08, 2024 4 :00am [facility] June 15, 2024 5 :00am [facility] June 22, 2024 5 :00am [...] 10:56am ADMISSION EXAM May 25, 2024 1:55pm [facility] June 01, 2024 4: 00am [facility] June 08, 2024 4 :00am [facility] June 15, 2024 5 :00am [facility] June 22, 2024 5 :00am NEW CONCERN June 23, 2024 4:5 8pm [facility] June 29, 2024 5: 00am [facility] July 06, 2024 5: 00am [facility] July 13, 2024 5 :00am Chief Complaint Admit Date LUMBAR COMPRESSION FRACTURE W PAIN Meleua ry 2024 3:42pm ADMISSION EXAM May 21, 2024 10:56am ADMISSION EXAM May 25, 2024 1:55pm [facility] June 01, 2024 4: 00am [facility] June 08, 2024 4 :00am [facility] June 15, 2024 5 :00am [facility] June 22, 2024 5 :00am NEW CONCERN June 23, 2024 4:5 8pm [facility] June 29, 2024 5: 00am [facility] July 06, 2024 5: 00am [facility] July 13, 2024 5 :00am [facility] July 20, 2024 4 :00am [facility] July 27, 2024 5 :00am [...] 10:56am ADMISSION EXAM May 25, 2024 1:55pm [facility] June 01, 2024 4: 00am [facility] June 08, 2024 4 :00am [facility] June 15, 2024 5 :00am [facility] June 22, 2024 5 :00am NEW CONCERN June 23, 2024 4:5 8pm [facility] June 29, 2024 5: 00am [facility] July 06, 2024 5: 00am [facility] July 13, 2024 5 :00am [facility] July 20, 2024 4 :00am [facility] July 27, 2024 5 :00am LABWORK August 10, 2024 5:00a m Chief Complaint Admit Date LUMBAR COMPRESSION FRACTURE W PAIN Yani ry 2024 3:42pm ADMISSION EXAM May 21, 2024 10:56am ADMISSION EXAM May 25, 2024 1:55pm [facility] June 01, 2024 4: 00am [facility] June 08, 2024 4 :00am [facility] June 15, 2024 5 :00am [facility] June 22, 2024 5 :00am NEW CONCERN June 23, 2024 4:5 8pm [facility] June 29, 2024 5: 00am [facility] July 06, 2024 5: 00am [facility] July 13, 2024 5 :00am [facility] July 20, 2024 4 :00am [facility] July 27, 2024 5 :00am [facility] August 03, 2024 5:00 am LABWORK August 10, 2024 5:00a m [facility] August 17, 2024 5:0 0am [...] Will Yes April 10 5:15pm Power of Tanning Solution Maker Yes April 10, 2021 5:15pm Advance Directive Response Recorded Date/ Time Advance Directives Yes January 1:49am Living Will Yes April 10 4:15pm Power of Tanning Solution Maker Yes April 10, 2021 4:15pm Advance Directive Response Recorded Date/ Time Living Will No March 30 9:41pm Do you have a Healthcare Power of Tanning Solution Maker? No March 30, 2024 9:41pm Living Will Yes April 10 5:15pm Do you have a Healthcare Power of Tanning Solution Maker? Yes April 10, 2021 5:15pm Living Will No April 11 3:41pm Do you have a Healthcare Power of Tanning Solution Maker? No April 11, 2024 3:41pm Living Will No April 19 5:36pm Do you have a Healthcare Power of Tanning Solution Maker? No April 19, 2024 5:36pm Advance Directives Yes January 2:49am Advance Directive Response Recorded Date/ Time Living Will No April 11 3:41pm Do you have a Healthcare Power of Tanning Solution Maker? No April 11, 2024 3:41pm Living Will No April 19 5:36pm Do you have a Healthcare Power of Tanning Solution Maker? No April 19, 2024 5:36pm Advance Directives Yes January 2:49am Advance Directive Response Recorded Date/ Time Living Will No April 19 5:36pm Do you have a Healthcare Power of Tanning Solution Maker? No April 19, 2024 5:36pm Advance Directives [...] Inactive Member Role Status Dates Dr. Michael Snowedn MD Primary Care Provider Active Start: April [...] 2024 End: May 21, 2024 Audra Drake NP CHIPPER MACHINE OPERATOR-C Attending Provider Active Start: May [...] Active Start: June 22, 2024 Audra JAVIER NP-C Attending Provider Active Start: June 22, 2024 [...] June 22, 2024 End: June 22, 2024 Audra JAVIER CHIPPER MACHINE OPERATOR-C Attending Provider Active Start: June 22, 2024 End: June 22, 2024 Team Status: Active Member Role Status Dates Dr. Michael Snowden MD Primary Care Provider Active Start: July 13, 2024 Nikia JAVIER MD Attending Provider Active Start: July 13, 2024 Drilling Assistant Relationship Specialty Start Date End Date Michael Snowden Chi PCP - General Gerontology 09/05/17 Team Status: Inactive Member Role Status Dates Dr. Michael Snowden MD Primary Care Provider Active Start: June 23, 2024 End: June 23, 2024 Audra Drake NP CHIPPER MACHINE OPERATOR-C Attending Provider Active Start: June 23, 2024 End: June 23, 2024 Team Status: Inactive Member Role Status Dates Dr. Michael Snowden MD Primary Care Provider Active Start: June 29, 2024 End: June 29, 2024 Audra JAVIER CHIPPER MACHINE OPERATOR-C Attending Provider Active Start: June 29, 2024 [...] Status: Active Member Role Status Dates Dr. Mihcael Snowden MD Primary Care Provider Active Start: July 27, 2024 MAR Noe Attending Provider Active Start: July 27, 2024 Team Status: Active Member Role Status Dates Dr. Michael Snowden MD Primary Care Provider Active Start: August 03, 2024 MAR Noe Attending Provider Active Start: August 03, 2024 Drilling Assistant Relationship Specialty Start Date End Date Michael Snowden Paulo PCP - General Gerontology 09/05/17 Drilling Assistant Relationship Specialty Start Date End Date SpMichael Chi PCP - General Gerontology 09/05/17 Drilling Assistant Relationship Specialty Start Date End Date Sp [...] Active Member Role Status Dates Dr. Michael Snodwen MD Primary Care Provider Active Start: August [...] or prosecute any alcohol or drug abuse patient.[facility] the event this information is protected by the Federal Confidentiality of Alcohol and Drug Abuse Patient Records regulations: The Federal rules restrict any use of the information to criminally investigate or prosecute any alcohol or drug abuse patient.[facility] the event this information is protected by the Federal Confidentiality of Alcohol and Drug Abuse Patient Records regulations: The Federal rules restrict any use of the information to criminally investigate or prosecute any alcohol or drug abuse patient.[facility] Hospital[facility] the event this information is protected by the Federal Confidentiality of Alcohol and Drug Abuse Patient Records regulations: The Federal rules restrict any use of the information to criminally investigate or prosecute any alcohol or drug abuse patient.[facility] the event this information is protected by the Federal Confidentiality of Alcohol and Drug Abuse Patient Records regulations: The Federal rules restrict any use of the information to criminally investigate or prosecute any alcohol or drug abuse patient.[facility] Hospital[facility] the event this information is protected by the Federal Confidentiality of Alcohol and Drug Abuse Patient Records regulations: The Federal rules restrict any use of the information to criminally investigate or prosecute any alcohol or drug abuse patient.[facility] Reason for Visit (unrecogniz ed section and content) Reason Comments New Patient Reason Comments Established Patient Reason Comments Medication Preauthorization Evenity 210m g- Denied INFORMATION SOURCE (unrecogn ized section and content) DATE CREATED AUTHOR 09/09/2024 [facility] DATE CREATED AUTHOR AUTHOR'S ORGANIZ ATION 10/31/2024 [facility] FOR RECORDS PERTAINING TO PATIENTS WHO ARE [...] BE BASED ON THE PRIMARY CLINICAL RECORDS. [facility] [employer] [facility]. provides no warranty or guarantee of the accuracy or completeness of information in this document.
[2024-11-02 09:38] LABS: Hematocrit 37.2 % (37-47); Hemoglobin 11.7 g/dL (12.0-15.0); Immature Granulocytes Count 0.010 X10^3/uL (0.0-0.0); Mean Corp Hgb Conc 31.5 g/dL (32-36); Mean Corpuscular Volume 101.1 fL (81-99); Mean Platelet Vol. 10.0 fl (6.2-12.0); NRBC Flagged by Analyzer 0 % (0-5); Platelet Count 209 K/mm3 (150-450); RBC Distribution Width CV 12.7 % (11.6-14.6); RBC Distribution Width SD 47.3 fl (35.1-43.9); Red Blood Count 3.68 M/mm3 (4.2-5.4); White Blood Count 5.6 K/mm3 (4.4-11.0)
[2024-11-02 10:13] LABS: FOLATES,SERUM (FOLIC ACID) 10.00 ng/mL (4.60-34.80)
[2024-11-02 10:18] LABS: AST(SGOT) 18 U/L (<=31); Alanine Aminotransfer ALT/SGPT 10 U/L (<=34); Albumin, Serum 3.6 g/dL (3.4-4.8); Alkaline Phosphatase 75 U/L (35-104); Anion Gap 10 (5-15); BUN 15 mg/dL (4-19); BUN/Creat Ratio 23.7 RATIO (10-20); Bilirubin, Direct 0.12 mg/dL (0.00-0.30); Calcium,Total 9.1 mg/dL (7.6-11.0); Carbon Dioxide 25.8 mmol/L (21.0-32.0); Chloride 107 mmol/L (98-108); Globulin 2.6 g/dL (2.2-4.2); Glucose 79 mg/dL (70-99); Magnesium 2.1 mg/dL (1.5-2.2); Potassium 4.0 mmol/L (3.3-5.1); Vitamin B12 585 pg/mL (180-914); Vitamin D,25 Hydroxy 31.6 ng/mL (30-100)
[2024-11-02 11:38] LABS: Cholesterol 175 mg/dL (<=200); Low Density Lipoprotein Calc. 105 mg/dL; Triglycerides 80 mg/dL; Very Low Density Lipoprotein 16 mg/dL (5-40); cholesterol:hdl ratio screen 3.23
== END ==
LOC: OLS.WHLTCC 05:00
PROVIDERS: PCP Family Medicine Geriatric Medicine; Visit Provider Nurse Practitioner Adult Health
DX: E55.9 Vitamin D deficiency, unspecified (principal); D51.9 Vitamin B12 deficiency anemia, unspecified; D52.9 Folate deficiency anemia, unspecified; E83.42 Hypomagnesemia; I10 Essential (primary) hypertension; M62.830 Muscle spasm of back
CPT/HCPCS: 36415; 80048; 80061; 80076; 82306; 82607; 82746; 83735; 85025

== ENCOUNTER → 2024-11-22 05:00 | Outpatient (REF) | payer MEDICARE, SELFPAY ==
[2024-11-22 09:24] LABS: Alkaline Phosphatase 73 U/L (35-104)
== END ==
LOC: OLS.WHLTCC 05:00
PROVIDERS: PCP Family Medicine Geriatric Medicine; Visit Provider Internal Medicine
DX: S32.010D Wedge compression fracture of first lumbar vertebra, subsequent encounter for fracture with routine healing (principal); M54.16 Radiculopathy, lumbar region; M54.50 Low back pain, unspecified; M48.061 Spinal stenosis, lumbar region without neurogenic claudication; R48.8 Other symbolic dysfunctions
CPT/HCPCS: 36415; 84075

== ENCOUNTER → 2024-11-30 04:00 | Outpatient (REF) | payer MEDICARE, SELFPAY ==
--- OUTSIDE RECORDS SUMMARY | 2024-11-30 05:00 | XMS RPT_ITS | CCD ---
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 Michael Bates [...] Rei OROZCO, Dr. Ayon Other Provider Noelle MUTUEL TELLER-C, Audra Attending Provider Beatriz OROZCO, Dr. Montejo Attending Provider Beatriz OROZCO, Nikia Attending Provider UnavailNikia Richard MD Referring Provider Unavailteri Drake MUTUEL TELLER-C, Audra Attending Provider Michael Snowden Chi Primary Care Provider [phone] Sp OROZCO, Dr. Michael Bates Primary Care Provider Sp OROZCO, Dr. Michael Bates Attending Provider Sp OROZCO, Dr. Michael Bates Referring Provider Sp OROZCO, Dr. Michael Bates Primary Care Provider Sp OROZCO, Dr. Michael Bates Primary Care Provider Nikia Henderson MD Attending Provider Unavailteri Henderson MD, Nikia Referring Provider Unavaila navin Drake MUTUEL TELLER-CAudra Attending Provider Dr. Michael Snowden MD, Chi Referring Provider Adam TIDWELL-Mari Rodriguez Attending Provider Sp OROZCO, Dr. Michael Bates Primary Care Provider Nikia Henderson MD Attending Provider Unavaila navin Drake MUTUEL TELLER-CAudra Attending Provider Beatriz OROZCO, Dr. Montejo Attending Provider Sp, Michael Chi Primary Care Unavailable Fahad Martinez Attending Unavailable Oleghe OLSOnelbe Attending Unavailabl e Sp, Michael Chi Primary Care Unavailable Oleghe Onel JAVIERbe Attending Unavailabl e Sp, Michael Chi Primary Care Unavailable Tickton Audra JAVIER Attending Unavailable Sp, Michael Chi Primary Care Unavailable Oleghe OLSOnelbe Attending Unavailabl e Sp, Michael Chi Primary Care Unavailable Oleghe OLSOnelbe Attending Unavailabl e Sp, Michael Chi Primary Care Unavailable Tickton Audra JAVIER Attending Unavailable Sp, Michael Chi Primary Care Unavailable Oleghe OLS, Efguanakoongbe Attending Unavailabl e Sp, Michael Chi Primary Care Unavailable [place] Audra JAVIER Attending Unavailable Sp, Michael Chi Primary Care Unavailable Oleghe OLS Efewongbe Referring Unavailabl e Oleghe OLS Efguanakoongbe Attending Unavailabl e Sp, Michael Chi Primary [...] Primary Care Unavailable Floridalma Bingham Attending Unavailable Tickton Audra JAVIER Attending Unavailable Sp, Michael Chi Primary Care Unavailable Oleghe OLSOnelbe Attending Unavailabl e Sp, Michael Chi Primary Care Unavailable [place] Audra JAVIER Attending Unavailable Sp, Michael Chi Primary Care Unavailable Oleghe Nikia JAVIER Attending Unavailabl e Sp, Michael Chi Primary Care Unavailable Nikia Flores Attending Unavailabl e Sp, Michael Chi Primary Care Unavailable Audra García Attending Unavailable Sp, Michael Chi Primary Care Unavailable Watkins, Lesli Admitting Unavailable Gabo Hernandez Attending Unavailable Basali, Ayman Consulting Unavailable Sp, Michael Chi Primary Care Unavailable Watkins, Lesli Consulting Unavailable Gabo Minaya Consulting Unavailable Sp, Michael Chi Primary Care Unavailable Sp, Michael Chi Admitting Unavailable Sp, Michale Chi Attending Unavailable Sp, Michael Chi Referring Unavailable Watkins, Lesli Admitting Unavailable Gabo Hernandez Attending Unavailable Basali, Ayman Consulting Unavailable Sp, Michael Chi Primary Care Unavailable Watkins, Lesli Consulting Unavailable Gabo Hernandez Consulting Unavailable Oleghe Onel JAVIERbe Attending Unavailabl e Sp, Michael Chi Primary Care Unavailable Sp, Michael Chi Primary Care Unavailable Tami Caldwell Attending Unavailable Sp, Michael Chi Referring Unavailable Audra Drake Attending Unavailable Sp, Michael Chi Primary Care Unavailable Sp, Michael Chi Primary Care Unavailable Sae Brandt Attending Unavailable Sp, Michael Chi Referring Unavailable Nagajothi Nagapradee Referring Unavailabl e NagaBernardo carlsone Attending Unavailabl e Sp, Michael Chi Primary Care Unavailable Lesli Watkins Attending Unavailable Watkins, Lesli Consulting Unavailable Sp, Michael Chi Primary Care Unavailable Watkins, Lesli Admitting Unavailable Basali, Ayman Consulting Unavailable Audra Drake Attending Unavailable Sp, Michael Chi Primary Care Unavailable Nikia Henderson Attending Unavailable Sp, Michael Chi Primary Care Unavailable Sp, Michael Chi Primary Care Unavailable Mari Medina NP Attending Unavailable Sp, Michael Chi Referring Unavailable Sp, Michael Chi Primary Care Unavailable Audra Drake Attending Unavailable Sp, Michael Chi Primary Care Unavailable Onel Hendersonbe Attending Unavailable Gabo Hernandez Attending Unavailable Gabo Hernandez Consulting Unavailable Sp, Michael Chi Primary Care Unavailable Tickton Audra JAVIER Attending Unavailable Oleghe Nikia JAVIER Referring Unavailabl e Oleghe Nikia JAVIER Attending Unavailabl e Sp, Michael Chi Primary Care Unavailable Oleghe OLS, Efewongbe Attending Unavailabl e Sp, Michael Chi Primary Care Unavailable Oleghe OLS, Efewongbe Attending Unavailabl e Sp, Michael Chi Primary Care Unavailable Oleghe OLS, Efewongbe Referring Unavailabl e Oleghe OLS, Efewongbe Attending Unavailabl e Sp, Michael Chi Primary Care Unavailable SETH CHOWDARY Attending Unavailable JOVANNI MATTHEW Referring Unavailable SP, MICHAEL CHI Primary Care Unavailable ELZBIETA HERNANDEZ Attending Unavaila ble SP, MICHAEL CHI Primary Care Unavailable JOVANNI MATTHEW Attending Unavailable SELF Referring Unavailable SP, MICHAEL CHI Primary Care Unavailable AJAY GRANT Attending Unav ailable JOVANNI MATTHEW Referring Unavailable SP, MICHAEL CHI Primary Care Unavailable MILLIE PETTY Referring Unavailable SP, MICHAEL CHI Primary Care Unavailable Allergies Allergy Classification Reported Allergen(s) Allergy Type Date of Onset Reaction(s) Facility (3 sources) alendronate drug allergy 015 GI upset [facility] Work Phone: (3 sources) amLODIPine drug allergy 016 "freezes up limbs" [facility] Work Phone: (3 sources) atorvastatin drug allergy 016 muscle weakness [facility] Work Phone: (20 sources) codeine; Translations: [codeine] drug allergy 009 Intolerance [facility] Work Phone: (20 sources) ibuprofen; Translations: [ibuprofen] drug allergy 005 GI Upset [facility] Work Phone: (20 sources) lisinopril; Translations: [lisinopril] drug allergy 012 Swelling, Anaphylaxis [facility] Work Phone: (3 sources) NIFEdipine drug allergy 016 "freezes up limbs" [facility] Work Phone: (3 sources) HCTZ drug allergy 015 low sodium [facility] Work Phone: (6 sources) NKDA drug allergy [facility] Work Phone: (20 sources) Alendronate; Translations: [ALENDRONATE SODIUM] Drug Allergy GI Upset, Other: See Comments [facility] (20 sources) amLODIPine Drug Allergy Freezes up limbs [facility] (20 sources) atorvastatin; Translations: [ATORVASTATIN] Drug Allergy 016 Intolerance [facility] (20 sources) Doxazosin; Translations: [DOXAZOSIN] Drug Allergy Other: See Comments [facility] Comment on above: VASOVAGAL (20 sources) hydroCHLOROthiazide; Translations: [HYDROCHLOROTHIAZIDE] Drug Allergy Other: See Comments [facility] (20 sources) NIFEdipine; Translations: [NIFEDIPINE] Drug Allergy Other: See Comments [facility] (1 source) HCTA Propensity to adverse reactions Low sodium [facility] Work Phone: (1 source) Ibuprofen Drug Allergy [facility] Work Phone: Comment on above: abd pain (1 source) Codeine/Codeine Derivatives; Translations: [Codeine/Codeine Derivatives] Allergy to substance (finding) [facility]; [facility] Work Phone: Comment on above: Headache (1 source) Alendronate Drug Allergy [facility] (1 source) amLODIPine Drug Allergy [facility] (1 source) atorvastatin Drug Allergy [facility] (1 source) Doxazosin Drug Allergy [facility] (1 source) hydroCHLOROthiazide Drug Allergy [facility] (1 source) NIFEdipine Drug Allergy [facility] Rep[facility] (1 source) Alendronate; Translations: [ALENDRONATE] Drug Allergy [facility] Repository Medications Current Medications Medication Drug Class(es) Dates Sig (Normalized) Sig (Original) amLODIPine 2.5 mg oral tablet (20 sources) Dihydropyridine Calcium Channel Ebrenice Start: 04-09-2019 End: 11-02-2024 take 1 tablet by mouth twice daily amLODIPine (NORVASC) 2.5 mg tablet Take 2.5 mg by mouth two times a day. 07/06/2024 Active Start: 04-09-2019 End: 05-09-2023 take 1 tablet by mouth once daily Amlodipine 2.5 mg tablet Discontinued 2.5 mg PO DAILY May 09, 2023 2:27pm May 09, 2023 2:30pm Start: 04-26-2015 End: 06-13-2015 take 1 tablet by mouth once daily AMLODIPINE BESYLATE 5 MG TABS One tablet by mouth daily AMLODIPINE BESYLATE [id number] Bret Daniels MD Start: 08-03-2014 End: 08-05-2014 take 1 tablet by mouth once daily NORVASC 2.5 MG TABS One tablet by mouth daily AMLODIPINE BESYLATE [id number] Lyric Murcia RN B Complex-Vitamin C-Folic Acid 400 mcg Tablet (2 sources) Start: 05-19-2024 B Complex-Vitamin C-Folic Acid 400 mcg Tablet Active 1 {tbl} PO DAILY 0 May 19, 2024 1:00am baclofen 5 mg oral tablet (20 sources) gamma-Aminobut yric Acid-ergic Agonist Start: 05-29-2024 take 1 tablet [...] One tablet by mouth twice daily CHOLECALCIFEROL [id number] Bret Daniels MD Start: 02-04-2012 take 2 tablets by mo ut once daily VITAMIN D 2000 UNIT TABS Two tablets by mouth daily CHOLECALCIFEROL [id number] Lyric Murcia RN take 1 tablet by libby th once daily cholecalciferol (VITAMIN D) 1,000 unit tab tablet Take 1,000 Units by mouth once daily. Active take 1 tablet by libby th once daily Cholecalciferol, Vitamin D3, (VITAMIN D-3) 5,000 unit tab Take 5,000 Units by mouth once daily. Active citalopram 10 mg oral tablet (12 sources) Serotonin Reuptake Inhibitor Start: 11-02-2024 COMPOUNDED PRESCRIPTION (18 sources) Start: 01-25-2016 COMPOUNDED PRESCRIPTION Viki kenny defense 17 drops daily and working up to 60 drops daily (in divided doses). Serving size 30 drops. 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 Dx: Bilat sprained ankles, gait instability. 1 Each 0 06/07/2015 Active 1 ml denosumab 60 mg/ml prefilled syringe (3 sources) RANK Ligand Inhibitor Start: 11-18-2024 End: 12-18-2024 denosumab 60 mg injection (PROLIA) docusate sodium 50 mg / sennosides, [facility] 8.6 mg oral tablet (20 sources) Start: [...] Start: 06-11-2016 lidocaine 0.05 mg/mg medicated patch (20 sources) Antiarrhythmic, Amide Local Anesthetic Start: 04-16-2024 End: 04-16-2024 lidocaine 0.04 mg/mg / menthol 0.04 mg/mg medicated patch (9 sources) Antiarrhythmic, Amide Local Anesthetic lidocaine-menthol 4-4 % ptmd Apply to affected area. on in am and off @ HS Active magnesium chloride 598 mg delayed release oral tablet (20 sources) Start: 05-19-2024 take 1 tablet by mouth once stacey y magnesium chloride [address] tablet Take 64 mg by mouth once daily. Active magnesium citrate 58.2 mg/ml oral solution (20 sources) Start: 05-19-2024 Start: 05-19-2024 take 1 [...] contact the information source for Protocol details. MULTIVITAMIN TAB (9 sources) Start: 09-02-2005 MULTIVITAMIN T AB Take one(1) tablet daily. 0 09/02/2005 Active ondansetron 4 mg oral tablet (9 sources) Serotonin-3 Receptor Antagonist ondansetron (ZOFRAN) 4 mg tablet Take by mouth every 4 hours as needed for nausea/vomiting. Active OTC NUTRITIONAL SUPPLEMENT (9 sources) OTC NUTRITIONAL SUPPLEMENT zypan supplement Active 1.17 ml romosozumab-aqqg 89.7 mg/ml prefilled syringe (8 sources) Start: 07-22-2024 End: 07-22-2025 romosozumab-aqqg (EVENITY) 105 mg/1.17 mL syrg syringe Indications: Age-related osteoporosis with current pathological fracture, initial encounter , History of vertebral compression fracture Inject 2 syringes subcutaneously once every month. 2 each 07/22/2024 07/22/2025 Active traMADol hydrochloride 50 mg oral tablet (20 sources) Opioid Agonist Start: 04-11-2024 End: 05-19-2024 Start: 04-11-2024 End: 05-19-2024 take 1 tablet by mouth twice daily as needed for pain Tramadol 50 mg tablet Discontinued 50 mg PO TWICE DAILY NEEDED as needed for pain April 11, 2024 1:00am May 19, 2024 9:06pm vitamin B 12 (20 sources) Vitamin B12 Start: 05-19-2024 take 2 tablets by mouth once daily Cyanocobalamin (Vitamin B-12) 500 mcg Tablet Active 1000 ug PO DAILY 0 May 19, 2024 1:00am Start: 04-11-2024 End: 05-19-2024 Start: 02-04-2012 take 1 tablet by libby th once daily VITAMIN B-12 100 MCG TABS One tablet by mouth daily CYANOCOBALAMIN [id number] Bret Daniels MD take 1 tablet by [...] tablet by mouth daily B COMPLEX VITAMINS [id number] Bret Daniels MD Start: 05-22-2014 End: 07-14-2018 [...] tablet by mouth daily B COMPLEX VITAMINS [id number] Lyric Murcia RN Start: 02-04-2012 End: 03-08-2015 take 1 tablet by mouth once daily VITAMIN B COMPLEX TABS One tablet by mouth daily B COMPLEX VITAMINS [id number] Ashley Ernst PA-C VITAMIN B COMPLEX ORAL (9 sources) Start: 05-22-2014 VITAMIN B COMPLEX ORAL once daily. 05/22/2014 Active 100 ml zoledronic acid 0.05 mg/ml injection (4 sources) Bisphosphonate Start: 09-07-2024 inject 100 mL intravenously once zoledronic acid (RECLAST) 5 mg/100 mL PREMIX piggyback Indications: Age-related osteoporosis with current pathological fracture, initial encounter Inject 100 mL intravenously one time only for 1 dose. 100 mL 09/07/2024 Active (20 sources) Start: 05-19-2024 End: 11-02-2024 Start: 05-19-2024 Start: 04-11-2024 End: 05-19-2024 Start: [...] 15, 2016 12:00am July 02, 2017 2:34pm Posey (20 sources) Start: 05-25-2020 End: 02-23-2024 Start: 05-25-2020 End: 02-23-2024 Posey 650 mg tablet Discon tinued mg PO May 25, 2020 1:00am February 23, 2024 1:42pm Start: 05-25-2020 Posey Active MG PO May 25, 2020 12:00am Start: 05-25-2020 Posey Active MG PO May 25, 2020 1:00am Start: 07-02-2017 End: 08-18-2017 Start: 07-02-2017 End: 08-18-2017 take 1 tablet by mouth once daily Posey 650 mg tablet Discontinued 650 mg PO daily July 02, 2017 12:00am August 18, 2017 3:35pm Start: 07-02-2017 End: 08-18-2017 take 650 mg by mouth once daily Posey Discontinued 6 50 MG PO daily July 01, 2017 11:00pm August 18, 2017 2:35pm Start: 07-02-2017 End: 08-18-2017 take 650 mg by mouth once daily Posey Discontinued 6 50 MG PO daily July 02, 2017 12:00am August 18, 2017 3:35pm Start: 02-03-2013 End: 02-10-2014 ALFALFA 650 MG TABS as neede d ALFALFA [id number] Ashley Ernst PA-C amoxicillin 500 mg oral caps ule (20 [...] One tablet by mouth daily ASCORBIC ACID [id number] Lyric Murcia RN aspirin 81 mg chewable [...] mouth four times daily as needed ASPIRIN-CAFFEINE [id number] Lyric Murcia RN Start: 08-03-2014 take 2 tablets by mo [facility] four times daily as needed ANACIN 400-32 MG TABS Two tablets by mouth four times daily as needed ASPIRIN-CAFFEINE [id number] Lyric Murcia RN Start: 08-03-2014 take 2 tablets by mo [facility] four times daily as needed ANACIN 400-32 [...] ANACIN 400-32 MG TABS as needed ASPIRIN-CAFFEINE [id number] Elenita Villalobos RN Start: 02-03-2013 End: 02-10-2014 ANACIN 400-32 MG TABS as nee ded ASPIRIN-CAFFEINE [id number] Ashley Ernst PA-C Start: 02-03-2013 End: 02-10-2014 ANACIN 400-32 MG TABS as nee ded ASPIRIN-CAFFEINE Ashley Ernst PA-C Start: 02-03-2013 ANACIN 400-32 MG TABS as needed ASPIRIN-CAFFEINE Elenita Villalobos RN atorvastatin 20 mg oral tablet (6 sources) HMG-CoA Reductase Inhibitor Start: 03-01-2015 End: 04-26-2015 take 1 tablet by mouth once daily ATORVASTATIN CALCIUM 20 MG TABS One tablet by mouth daily ATORVASTATIN CALCIUM [id number] Jessica Smith RN azaTHIOprine 100 mg injection (6 sources) Purine Antimetabolite Start: 03-01-2015 End: 03-08-2015 take 1 tablet by mouth once daily AZASAN 100 MG TABS One tablet by mouth daily AZATHIOPRINE [id number] Lyric Murcia RN biotin (6 sources) Start: 02-04-2012 End: 02-08-2013 take 1 tablet by mouth once daily BIOTIN FORTE TABS One tablet by mouth daily BIOTIN TABS [id number] Ashley Ernst PA-C Start: 02-04-2012 take 1 tablet by libby th once daily BIOTIN FORTE TABS One tablet by mouth daily BIOTIN TABS [id number] Bret Daniels MD CALCIUM-MAGNESIUM TABS (3 sources) Start: 02-04-2012 take 2 tablets by mouth once daily THERESE-MAG TABS Two tablets by mouth daily CALCIUM-MAGNESIUM TABS [id number] Bret Daniels MD CATALYN (3 sources) Start: 06-11-2016 take 1 tablet by mouth once daily CATALYN One tablet by mouth daily CATALYN Ashley Ernst PA-C chlorthalidone 50 mg oral tablet (20 sources) Thiazide-like Diuretic Start: 10-13-2014 End: 11-07-2014 Start: 10-13-2014 End: 11-07-2014 take 25 mg by mouth once daily Chlorthalidone Disconti nued 25 MG PO DAILY October 13, 2014 12:00am November 07, 2014 6:47pm Start: 08-05-2014 End: 01-23-2015 take 1 tablet by mouth once daily CHLORTHALIDONE 25 MG TABS One half tablet by mouth daily CHLORTHALIDONE [id number] Aimee Davis RN Start: 05-22-2014 End: 05-23-2014 Start: 05-22-2014 End: 05-23-2014 take 25 mg by mouth once daily Chlorthalidone Disconti nued 25 MG PO DAILY May 22, 2014 1:00am May 23, 2014 3:11pm clindamycin 300 mg oral caps ule (18 sources) Lincosamide Antibacterial Start: 09-25-2022 End: 10-02-2022 take 4 capsules by mouth every h our CLINDAMYCIN HCL, 150MG (Oral Capsule) 4 capsules 1 hour prior to dental procedure for 0 days Refills: 0 Ordered: 19-Mar-2006 Day Pacheco RN Active Comments: due to knee replacement Comment [...] TABS One tablet by mouth daily HYDROCHLOROTHIAZIDE [id number] Bret Daniels MD lactulose 667 mg/ml oral solution (20 sources) Osmotic Laxative Start: 2020 End: 2022 Start: 03-01-2015 LACTULOSE 10 G M/15ML SOLN 30 cc (20 gm) by mouth daily as needed LACTULOSE [id number] Bret Daniels MD Start: 11-14-2014 End: 07-15-2016 [...] at bedtime 250mg tablets MAGNESIUM OXIDE CAPS [id number] Bret Daniels MD Start: 08-13-2013 MAGNESIUM OXID E CAPS 4 tablets at bedtime MAGNESIUM OXIDE CAPS [id number] Bret Daniels MD melatonin 3 mg oral [...] 07, 2014 12:00am November 14, 2014 9:48am 24 hr metoprolol succinate 2 5 mg extended release oral tablet (20 sources) beta-Adrenergic Berenice Start: 08-18-2017 End: 04-16-2024 Start: 11-01-2016 End: 11-02-2024 take 1 tablet by mouth twice daily metoprolol succinate ER (TOPROL XL) 25 mg 24 hr tablet Take 1 tablet by mouth twice daily. (prescribed by Dr. Daniels) 11/01/2016 Active Start: 11-01-2016 End: 08-18-2017 Start: 11-13-2014 End: [...] th twice daily TOPROL XL 25 MG [id number] One tablet by mouth twice daily METOPROLOL SUCCINATE [id number] Bret Daniels MD Start: 02-08-2013 take 1 tablet by libby th twice daily TOPROL XL 25 MG [id number] One tablet by mouth twice daily METOPROLOL SUCCINATE [id number] Lyric Murcia RN Start: 02-08-2013 take 1 tablet by libby th once daily TOPROL XL 25 MG [id number] One tablet by mouth daily METOPROLOL SUCCINATE [id number] Ashley Ernst PA-C Start: 02-08-2013 take 1 tablet by libby th twice daily TOPROL XL 25 MG [id number] One tablet by mouth twice daily METOPROLOL SUCCINATE [id number] Bret Daniels MD Start: 02-08-2013 take 1 tablet by libby th once daily TOPROL XL 50 MG [id number] One half tablet by mouth daily METOPROLOL SUCCINATE [id number] Bret Daniels MD Start: 02-08-2013 take 1 tablet by libby th twice daily TOPROL XL 25 MG [id number] One tablet by mouth twice daily METOPROLOL SUCCINATE [id number] Lyric Murcia RN Start: 02-08-2013 take 1 tablet by libby th once daily TOPROL XL 25 MG [id number] One tablet by mouth daily METOPROLOL SUCCINATE [id number] Ashley Ernst PA-C Start: 02-04-2012 take 1 tablet by libby th once daily TOPROL XL 50 MG [id number] One tablet by mouth daily METOPROLOL SUCCINATE [id number] Bret Daniels MD Start: 02-04-2012 take 1 tablet by libby th once daily TOPROL XL 50 MG [id number] One tablet by mouth daily METOPROLOL SUCCINATE [id number] Bret Daniels MD Mineral Oil/Petrolatum,White (Eucerin) 1 APPLIC Jar (15 [...] One tablet by mouth daily MULTIPLE VITAMIN [id number] Bret Daniels MD Oxzxzoqxkfti-Cf-Bzeg- Minerals (13 sources) Start: 02-16-2015 End: 07-02-2017 take 1 tablet by mouth once daily Veksolqfmowz-Cj-Elyf-Mine rals Discontinued 1 TABLET PO DAILY February 16, 2015 12:00am July 02, 2017 1:34pm Start: 02-16-2015 End: 07-02-2017 take 1 tablet by mouth once daily Zcdccgusxbmk-Ft-Fybd-Minerals Discontinu ed 1 TABLET PO DAILY February 16, 2015 1:00am July 02, 2017 2:34pm Regsmtouxwsb-Jk-Kzic-Mineral s 1 EACH tablet (2 sources) Start: 02-16-2015 End: 07-02-2017 take 1 tablet by mouth once daily Qlfarnqvoluu-Bx-Uamu-Minerals 1 EACH tablet Discontinued 1 {tbl} PO DAILY February 16, 2015 1:00am July 02, 2017 2:34pm naproxen 250 mg oral tablet (6 sources) Nonster oidal Anti-in flammat ory Drug Start: 08-03-2014 End: 08-05-2014 take 1 tablet by mouth three times daily as needed NAPROXEN 250 MG TABS One tablet by mouth three times daily as needed NAPROXEN [id number] Bret Daniels MD nitrofurantoin, macrocrystal s 25 [...] 27, 2017 12:00am July 14, 2018 2:56pm nystatin 100 unt/mg topical powder (20 sources) Polyene Antifungal Start: 04-16-2024 End: 11-02-2024 Start: 04-16-2024 End: 05-19-2024 Nystatin (Nyamyc) 100,000 un it/gram Powder Active 1 NMA TOPICAL TWICE A DAY May 19, 2024 1:00am Please contact the [...] 05-11-2019 Nystatin Discontinued 1 APPL IC TOPICAL 0600,0 April 26, 2019 1:00am May 11, 2019 3:42pm Start: 08-27-2017 End: 07-14-2018 Start: 08-27-2017 End: 07-14-2018 Nystatin Discontinued 1 APPL IC TOPICAL 0600,2200 August 27, 2017 12:00am July 14, 2018 2:55pm oxyCODONE hydrochloride 5 mg oral tablet (20 sources) Opioid Agonist Start: 09-03-2024 End: 10-20-2024 Start: 06-03-2024 End: 08-31-2024 Start: 04-16-2024 End: 05-31-2024 take 1 capsule by mo [facility] every four hours as needed oxyCODONE ir [...] One tablet by mouth daily PANTOPRAZOLE SODIUM [id number] Bret Daniels MD Start: 03-01-2015 take 1 tablet by libby twice daily PROTONIX 40 MG TBEC One tablet by mouth twice daily PANTOPRAZOLE SODIUM [id number] Lyric Murcia RN potassium chloride 10 meq ex tended release oral tablet (20 sources) Start: 05-04-2013 End: 11-14-2014 Start: 02-08-2013 End: 03-01-2015 take 1 tablet by mouth once daily KLOR-CON M20 20 MEQ CR-TABS One tablet by mouth daily POTASSIUM CHLORIDE IRMA CR [id number] Lyric Murcia RN Start: 02-08-2013 take 1 tablet by libby th once daily KLOR-CON M20 20 MEQ CR-TABS One tablet by mouth daily POTASSIUM CHLORIDE IRMA CR [id number] Ashley Ernst PA-C Start: 02-08-2013 take 1 tablet by libby once daily KLOR-CON M20 20 MEQ CR-TABS One tablet by mouth daily POTASSIUM CHLORIDE IRMA CR [id number] Ashley Ernst PA-C Start: 02-08-2013 End: 03-01-2015 take 1 tablet by mouth once daily KLOR-CON M20 20 MEQ CR-TABS One tablet by mouth daily POTASSIUM CHLORIDE IRMA CR [id number] Lyric Murcia RN Start: 08-13-2012 take 1 tablet by libby th twice daily KLOR-CON M20 20 MEQ CR-TABS One tablet by mouth twice daily POTASSIUM CHLORIDE IRMA CR [id number] Lyric Murcia RN Start: 08-13-2012 take 1 tablet by libby th twice daily KLOR-CON M20 20 MEQ CR-TABS One tablet by mouth twice daily POTASSIUM CHLORIDE IRMA CR [id number] Lyric Murcia RN predniSONE 10 mg oral tablet (9 sources) Corticosteroid Start: 03-01-2015 End: 03-08-2015 take 1 tablet by mouth once daily PREDNISONE 10 MG TABS One tablet by mouth daily PREDNISONE [id number] Ashley Ernst PA-C sulfamethoxazole 800 mg / [...] 1:00am May 19, 2024 9:05pm vitamin a 04989 unt oral capsule (20 sources) Vitamin A [...] TABS Three tablets by mouth daily CHOLECALCIFEROL [id number] Bret Daniels MD Start: 02-04-2012 take 3 tablets by mo uth once daily VITAMIN D 1000 UNIT TABS Three tablets by mouth daily CHOLECALCIFEROL [id number] Bret Daniels MD Zypan (15 sources) Start: [...] Date Documented Da te Episodic/Chronic Abdominal hernia (20 sources) Left inguinal hernia ; Translations: [Unilateral [...] 5 01-04-2022 Chronic Deficiency and other anemia (2 sources) Vitamin B12 deficiency anemia, unspecified; Translations: [Vitamin B12 deficiency anemia, unspecified] Onset: Episodic Deficiency and other anemia (2 sources) Folate deficiency anemia, unspecified; Translations: [Folate deficiency anemia, unspecified] Onset: 5 Episodic E Codes: Fall (11 sources) Fall; Translations: [Unspecified fall, initial encounter] 03-04-2024 Episodic Essential hypertension (20 sources) Hypertensive disorder; Translations: [Essential hypertension] Onset: 5 03-08-2015 Chronic Comment on above: chronic stable-kell nue present regimen Heart valve disorders (20 sources) Aortic valve stenosis; Translations: [Aortic stenosis, non-rheumatic ] Onset: 7 06-11-2016 Chronic Immunity disorders (20 sources) Sarcoidosis; Translations: [Sarcoidosis, unspecified] 06-03-2022 Chronic Menopausal disorders (19 sources) Postmenopausal bleeding; Translations: [Postmenopausal bleeding] 04-16-2024 Chronic Mood disorders (2 sources) Dysthymia; Translations: [Dysthymic] 02-13-2015 Chronic Comment on above: at this point will gregorio sweeney as she doesnt want to tryother meds Nutritional deficiencies (20 sources) Vitamin D deficiency; Translations: [Vitamin D deficiency, unspecified] Onset: 5 04-16-2024 Chronic Open wounds of head; neck; and trunk (11 sources) Scalp laceration; Translations: [Laceration without foreign body of scalp, initial encounter] 03-04-2024 Episodic Osteoarthritis (10 sources) Osteoarthrosis, unspecified whether generalized or localized, lower leg; Translations: [Osteoarthritis] Onset: 9 02-27-2006 Chronic Comment on above: s/pknee replacement on the left- 2004 Other acquired deformities (11 sources) Lumbar spondylolisthesis; Translations: [Spondylolisthesis, lumbar region] 11-14-2023 Episodic Other acquired deformities (1 source) Acquired spondylolisthesis; Translations: [Spondylolisthesis, site unspecified] 08-13-2024 Episodic Other bone disease and musculoskeletal deformities (2 sources) Osteopenia; Translations: [Other specified disorders of bone density and structure, unspecified site] 07-21-2024 Episodic Other congenital anomalies (9 sources) Congenital pes planus; Translations: [Congenital pes [...] routine healing] Onset: Episodic Other gastrointestinal disorders (20 sources) Diarrhea; Translations: [Diarrhea, unspecified] 06-07-2022 Episodic Other gastrointestinal disorders (20 sources) Abdominal bloating; Translations: [Abdominal distension (gaseous)] 06-07-2022 Episodic Other gastrointestinal disorders (1 source) Constipation, unspecified; Translations: [Constipation, unspecified] Onset: Episodic Other injuries and conditions due to external causes (4 sources) H/O: vertebral fracture; Translations: [Personal history of (healed) traumatic fracture] 07-21-2024 Episodic Other injuries and conditions due to external causes (1 source) Personal history of (healed) traumatic fracture; Translations: [History of vertebral compression fracture] Onset: 5 Episodic Other nervous system disorders (19 sources) Peripheral neuropathic pain; Translations: [Unspecified mononeuropathy of bilateral lower limbs] 04-16-2024 Chronic Other nervous system disorders (11 sources) Syringomyelia; 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] 11-14-2023 Chronic Other nervous system disorders (15 sources) Unable to walk; Translations: [Difficulty in walking, not elsewhere classified] 04-11-2024 Chronic Other nervous system disorders (9 sources) Disease of spinal cord, unspecified; Translations: [Unspecified disease of spinal cord] Onset: 4 12-14-2013 Chronic Other nervous system disorders (9 sources) Spinal cord disease; Translations: [Disease of spinal cord, unspecified] Onset: 5 04-22-2014 Chronic Other nutritional; endocrine; and metabolic disorders (12 sources) Body mass index (BMI) 33.0-33.9, adult; Translations: [Body mass index (BMI) 40.0-44.9, adult] Onset: 4 Resolved: 5 03-08-2015 Chronic Other nutritional; endocrine; and metabolic disorders (14 sources) Obesity 01-04-2022 Chronic Other nutritional; endocrine; and metabolic disorders (19 sources) Hypomagnesemia; Translations: [Hypomagnesemia] 04-16-2024 Chronic Other nutritional; endocrine; and metabolic disorders (1 source) Hypomagnesemia; Translations: [Hypomagnesemia] Onset: 5 Chronic Other screening for suspected conditions (not mental disorders or infectious disease) (16 sources) Patient encounter status; Translations: [Encounter for screening for malignant neoplasm of colon] Onset: 5 10-06-2014 Episodic Other upper respiratory infections (1 source) Chronic sinusitis; Translations: [Sinusitis, chronic] 01-03-2015 Chronic Other upper respiratory infections (2 sources) Acute sinusitis; Translations: [Acute sinusitis] 03-19-2006 Episodic Pathological fracture (20 sources) Pathological fracture of vertebra due to osteoporosis; Translations: [Age-related osteoporosis with current pathological fracture, vertebra(e), initial encounter for fracture] Onset: 5 04-13-2024 Episodic Skin and subcutaneous tissue infections (20 sources) Cellulitis; Translations: [Cellulitis, unspecified] 09-25-2022 Episodic Spondylosis; intervertebral disc disorders; other back problems (1 source) Cervical spondylosis without myelopathy; Translations: [Spondylosis without myelopathy or radiculopathy, cervical region] 08-13-2024 Chronic Spondylosis; intervertebral disc disorders; other back problems (20 sources) Disorder of right sciatic nerve; Translations: [Sciatica, right side] Onset: 4 04-08-2024 Episodic Sprains and strains (11 sources) Strain of neck muscle; Translations: [Strain of muscle, fascia and tendon at neck level, initial encounter] 03-04-2024 Episodic Superficial injury; contusion (11 sources) Injury of forehead; Translations: [Contusion of other part of head, initial encounter] 03-04-2024 Episodic Syncope (20 sources) Syncope; Translations: [Syncope and collapse] 04-18-2021 Episodic Unclassified (2 sources) F/U in 2 weeks after discharge from TCU Unclassified (2 sources) Low back pain, unspecified; Translations: [Low back pain, unspecified] Onset: 5 Unclassified (1 source) Established Patient Onset: 5 Urinary tract infections (20 sources) Acute urinary tract infection; Translations: [Urinary tract infection, site not specified] 04-18-2021 Episodic Past or Other Problems Problem Classification Problem Date Documented Da te Episodic/Chronic Allergic reactions (9 sources) Contact dermatitis; Translations: [Unspecified contact dermatitis, unspecified cause] Onset: 9 01-18-2009 Episodic Biliary tract disease (9 sources) Chronic cholecystitis with calculus; Translations: [Calculus of gallbladder with chronic cholecystitis without obstruction] Onset: 6 11-21-2015 Episodic Cardiac dysrhythmias (3 sources) Palpitations; Translations: [Palpitations] Onset: 2 02-03-2012 Episodic Disorders of lipid metabolism (9 sources) Hyperlipidemia; Translations: [Hyperlipidemia, unspecified] Onset: 5 Resolved: 3 07-30-2012 Chronic Gastroduodenal ulcer (except hemorrhage) (9 sources) Gastric ulcer without hemorrhage AND without perforation; Translations: [Gastric ulcer, unspecified as acute or chronic, without hemorrhage or perforation] Onset: 6 Resolved: 6 05-11-2015 Chronic Gastrointestinal hemorrhage (20 sources) Gastrointestinal hemorrhage; Translations: [Gastrointestinal hemorrhage, unspecified] Onset: 5 04-07-2019 Episodic Headache; including migraine (1 source) Headache; including migraine Hemorrhoids (9 sources) Internal hemorrhoids; Translations: [Other hemorrhoids] Onset: 5 10-09-2023 Episodic Malaise and fatigue (20 sources) Asthenia; Translations: [Other malaise] Onset: 5 04-16-2024 Episodic Other acquired deformities (11 sources) Spondylolisthesis, grade 3; Translations: [Spondylolisthesis, site unspecified] Onset: 5 07-21-2024 Episodic Other acquired deformities (1 source) Spondylolisthesis, site unspecified; Translations: [Spondylolisthesis, grade 3] Onset: 5 Episodic Other bone disease and musculoskeletal deformities (1 source) Other specified disorders of bone density and structure, unspecified site; Translations: [Osteopenia, unspecified location] Onset: 5 Episodic Other circulatory disease (20 sources) History of cerebrovascular accident; Translations: [Personal history of transient ischemic attack (TIA), and cerebral infarction without residual deficits] Onset: 0 06-03-2022 Episodic Comment on above: Moderate atrophy and periventricular white matter ischemic changes with old infarct in left temporal lobe. per CT 03/2019 Other connective tissue disease (9 sources) Muscle pain; Translations: [Myalgia and myositis, unspecified] Onset: 6 10-09-2023 Episodic Other connective tissue disease (9 sources) Tibialis tendinitis; Translations: [Posterior tibial tendinitis, unspecified leg] Onset: 8 01-18-2009 Episodic Other connective tissue disease (9 sources) Muscle weakness; Translations: [Muscle weakness (generalized)] Onset: 5 07-07-2014 Episodic Other connective tissue disease (9 sources) Ischial bursitis ; Translations: [Other bursitis of hip, right hip] Onset: 6 04-20-2015 Episodic Other disorders of stomach and duodenum (6 sources) Gastroparesis; Translations: [Gastroparesis] Onset: 4 09-25-2022 Episodic Other fractures (9 sources) Closed fracture lumbar vertebra, spondylolysis; Translations: [...] injuries and conditions due to external causes (9 sources) Angioedema; Translations: [Angioneurotic edema, initial encounter] Onset: 5 03-26-2021 Episodic Other injuries and conditions due to external causes (1 source) Unspecified injury of head, initial encounter; Translations: [Unspecified injury of head, initial encounter] Onset: 4 Episodic Other lower respiratory disease (3 sources) Dyspnea; Translations: [Shortness of breath] Onset: 2 02-03-2012 Episodic Other nervous system disorders (9 sources) Paresthesia of hand ; Translations: [Anesthesia of skin] Onset: 4 12-14-2013 Episodic Other nervous system disorders (18 sources) Abnormal gait; Translations: [Unsteadiness on feet] Onset: 4 12-14-2013 Episodic Other nervous system disorders (9 sources) Impairment of balance; Translations: [Other abnormalities of gait and mobility] Onset: 6 10-12-2015 Episodic Other nutritional; endocrine; and metabolic disorders (9 sources) Body mass index 40+ - severely obese; Translations: [Morbid (severe) obesity due to excess calories] Resolved: 6 01-25-2016 Chronic Residual codes; unclassified (1 source) Asymptomatic menopausal [...] Test Name Value Interpretation Reference Range Facility [facility] 11-23-2024 [facility] Telephone (ENWSTR) LIZETTE DAVIES ([id number]) 1945 F Date Time Provider Department 11/23/24 ELZBIETA HERNANDEZWSZEHRA During your visit today, we recorded the following information about you: Karla Pineda RN 11/23/2024 2:46 PM Signed Call placed to Pt's sister, Anny Espinosa. Notified her that the prior authorization for Prolia was approved by Pt's insurance, and she can schedule the nurse visit with Trinidad valenzuela RN at their convenience. Pt will be brought to the appt by Anny from [facility]; therefore, Anny wants to call back once she touches base with Pt to determine best date/time for Pt to come in for the injection. Dr. Hernandez already placed CAM order in Pt's chart. Karla Pineda RN November 23, 2024 2:46 PM Allergies As of Date: 11/23/2024 Noted Allergy Reaction LISINOPRIL 01/23/2012 7 - Swelling 10 - Anaphylaxis Comments: Face, mouth, and tongue. ALENDRONATE SODIUM 08/11/2017 8 - GI Upset CARDURA (DOXAZOSIN) 07/21/2024 14 - Other: See Comments CODEINE 11/01/2008 5 - Intolerance Comments: Headache HYDROCHLOROTHIAZIDE 07/21/2024 14 - Other: See Comments IBUPROFEN 03/08/2005 8 - GI Upset Comments: Epigastric pain. In higher dose. 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 Dx: Bilat sprained ankles, gait instability. - acetaminophen (TYLENOL EXTRA STRENGTH) 500 mg tablet Take 1 tablet by mouth every 6 hours as needed for Pain. - Magnesium 250 mg tab Take 1,000 mg by mouth. - MULTIVITAMIN TAB Take one(1) tablet daily. Facility-Administered Medications as of 11/23/2024 - denosumab 60 mg injection (PROLIA) Problem List As Of Date 11/23/2024 Noted Resolved Essential hypertension [I10] 02/06/2005 Malaise and fatigue [R53.81, R53.83] 02/27/2005 Other and unspecified hyperlipidemia [E78.5] 02/27/2005 07/30/2012 INT HEMORRHOID W/O COMPL [K64.8] 03/08/2005 Unspecified constipation [K59.00] 03/08/2005 02/19/2012 GASTROINTEST HEMORR NOS [K92.2] 03/08/2005 MYALGIA AND MYOSITIS NOS [[id number]] 09/02/2005 CONGENITAL PES PLANUS [Q66.50] 06/29/2007 Tibialis [...] neoplasms, colo*10/06/2014 Gastroparesis [K31.84] Ischial bursitis of rig (more content not included)... Normal [facility] CNPNon 11-19-2024 CNPN Telephone (ENWSTR) LIZETTE DAVIES ([id number]) 1945 F Date Time Provider Department 11/19/24 ELZBIETA HERNANDEZ During your visit today, we recorded the following information about you: Karla Pineda RN 11/19/2024 10:25 AM Signed Prior authorization for Prolia submitted to [facility]. [place]: [id number] Karla Pineda RN November 19, 2024 10:25 AM Tami Sun MA 11/19/2024 3:26 PM Signed Fax received Prolia approved pa# [id number] from 11/19/24-03/30/25. Placed in scanned docs. .me Allergies As of Date: 11/19/2024 Noted Allergy Reaction LISINOPRIL 01/23/2012 7 - Swelling 10 - Anaphylaxis Comments: Face, mouth, and tongue. ALENDRONATE SODIUM 08/11/2017 8 - GI Upset CARDURA (DOXAZOSIN) 07/21/2024 14 - Other: See Comments CODEINE 11/01/2008 5 - Intolerance Comments: Headache HYDROCHLOROTHIAZIDE 07/21/2024 14 - Other: See Comments IBUPROFEN 03/08/2005 8 - GI Upset Comments: Epigastric pain. In higher dose. 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 Dx: Bilat sprained ankles, gait instability. - acetaminophen (TYLENOL EXTRA STRENGTH) 500 mg tablet Take 1 tablet by mouth every 6 hours as needed for Pain. - Magnesium 250 mg tab Take 1,000 mg by mouth. - MULTIVITAMIN TAB Take one(1) tablet daily. Facility-Administered Medications as of 11/19/2024 - denosumab 60 mg injection (PROLIA) Problem List As Of Date 11/19/2024 Noted Resolved Essential hypertension [I10] 02/06/2005 Malaise and fatigue [R53.81, R53.83] 02/27/2005 Other and unspecified hyperlipidemia [E78.5] 02/27/2005 07/30/2012 INT HEMORRHOID W/O COMPL [K64.8] 03/08/2005 Unspecified constipation [K59.00] 03/08/2005 02/19/2012 GASTROINTEST HEMORR NOS [K92.2] 03/08/2005 MYALGIA AND MYOSITIS NOS [[id number]] 09/02/2005 CONGENITAL PES PLANUS [Q66.50] 06/29/2007 Tibialis [...] [R26.89] 10/12/2015 Chronic cholecystitis with calculus [K80.10] 11/20 (more content not included)... Normal [facility] CNOVon 11-18-2024 CNOV Office Visit (ENWSTR ) LIZETTE DAVIES ([id number]) 1945 F Date Time Provider Department 11/18/24 3:00 PM ELZBIETA HERNANDEZ ENWSTR During your visit today, we recorded the following information about you: Temperature Pulse Respiration Weight 97.6 degrees 92/minute 20/minute 65.8 kg Elzbieta Hernandez MD 11/18/2024 6:10 PM Signed Endocrinology and Metabolism [place] Follow up note NAME: Lizette Davies is a 79 year old old female PCP: Michael Snowden MD Requesting Provider: No referring provider defined for this encounter. My final recommendations will be communicated back to the requesting physician by way of shared medical record or letter via US mail. Chief Complaint: HPI: Lizette Davies is a 79 year old female here to discuss bone health. She is accompanied by her sister today She lives in a nursing facility. PMHx significant for HTN, Myelopathy, Sarcoidosis as per chart review Patient is a poor historian from conversation today Previously evaluated for Osteoporosis by Dr. Ajay Dumont, who graduated from fellowship recently and history was taken from chart review From previous documentation, 78 year old with PMH of HTN, sarcoidosis she has back pain started in 04/14/2024, she started on Oxycodone since that time, she had compression fracture, she had epidural injection, then she was able to walk with walker, then the effect of the injection started to wean off. She had right ankle fracture. No HX of kidney stone. She is using Vitamin D 5000 international unit(s) daily " She was prescribed Evenity, which was denied by insurance, after which she was prescribed reclast once a year, which does not apopear to have been sent for prior authorization. She confirms that this medication was not taken As reported today, her calcium intake is very minimal, not even one serving per day. As per her sister, she was taking calcium supplements previously, which were discontinued on admission to nursing facility, including Vit D She walks with a cane, she is in wheel chair today No hx of cancers known, or radiation PAST MEDICAL HISTORY Diagnosis Date Blood type O+ Compression fracture of thoracic vertebra (HCC) DDD (degenerative disc disease), cervical MRI scanned into Epic January 11, 2014 ([facility]) DDD (degenerative disc disease), lumbosacral Essential hypertension, benign Dr. Daniels Gastroparesis Mild to moderate--test done 09/2014 Generalized OA Heart attack (HCC) Hemorrhage of gastrointestinal tract 01/2015 EGD "huge ulcer" 01/2015 all cleared 03/2015, Eids Angeles MD Hemorrhage of gastrointestinal tract, unspecified [...] EGD ESOPHAGOGASTRODUODENO SCOPY TRANSORAL DIAGNOSTIC 02/16/15 EGD [facility] inpt ESOPHAGOGASTRODUODENO SCOPY TRANSORAL DIAGNOSTIC 05/11/15 EGD EXTRACTION, ERUPTED TOOTH OR EXPOSED ROOT (ELEVATION AND/OR FORCEPS REMOVAL) [place] teeth FOOT RIGHT OP SURGERY 01/2009 PAST SURGICAL HISTORY OF 1996 Bone fusion 1st MT and pin right foot PAST SURGICAL HISTORY OF 01/2013 left carpal tunnel surgery PAST SURGICAL HISTORY OF right Lasik 2001 PAST SURGICAL HISTORY OF 09/13 Skin Ca from Lt goodwin TONSILLECTOMY PRIMARY/SECONDARY Tonsillectomy Current Outpatient Medications on File Prior to Visit Medication Sig zoledronic acid (RECLAST) 5 mg/100 mL PREMIX piggyback Inject 100 mL intravenously one time only for 1 dose. romosozumab-aqqg (EVENITY) 105 mg/1.17 mL syrg syringe [...] needed for pain. lidocaine-menthol 4-4 % ptmd Ap (more content not included)... Normal [facility] Absolute lymphocyte countOrd ered By: Audra Drake on 11-02-2024 Lymphocytes Auto (Unsp spec) [#/Vol] 1.50 10*3/uL 0.83-4.51 [facility] Anion gap in Serum or Plasma Ordered By: Audra Drake on 11-02-2024 Anion gap [Moles/Vol] 10 mmol/L 5-15 [facility] Automated lymphocyte count a s percentage of total leukocytesOrdered By: Audra Drake on 11-02-2024 Lymphocytes/100 WBC Auto (Unsp spec) 26.9 % 19-41 [facility] BUN/creatinine ratioOrdered By: Audra Drake on 11-02-2024 Urea nitrogen/Creatinine [Mass ratio] 23.7 mg/mg High 10-20 [facility] Basophil percentageOrdered B y: Audra Drake on 11-02-2024 Basophils/100 WBC (Bld) 0.7 % 0-1 [facility] Bilirubin directOrdered By: Audra Drake on 11-02-2024 Bilirubin.direct [Mass/Vol] 0.12 mg/dL 0.00-0.3 0 [facility] Bilirubin, totalOrdered By: Audra Drake on 11-02-2024 Bilirubin [Mass/Vol] 0.27 mg/dL 0.00-1.30 [facility] Calculated very low density lipoprotein (VLDL) cholesterol measurementOrdered By: Audra Drake on 11-02-2024 Calculated very low density lipoprotein (VLDL) cholesterol measurement 16 mg/dL 5-40 [facility] Carbon dioxide, total [Moles /volume] in Central venous bloodOrdered By: Audra Drake on 11-02-2024 CO2 [Moles/Vol] 25.8 mmol/L 21.0-32.0 [facility] Cardiology Visit Reporton Cardiology Visit Report Normal [facility] Chloride assayOrdered By: Dimitris Drake on 11-02-2024 Chloride [Moles/Vol] 107 mmol/L 98-108 [facility] Eosinophil percentageOrdered By: Audra Drake on 11-02-2024 Eosinophils/100 WBC (Bld) 3.9 % 0-5 [facility] Erythrocyte distribution wid th ratioOrdered By: Audra Drake on 11-02-2024 Erythrocyte distribution width (RBC) [Ratio] 12.7 % 11.6-14.6 [facility] Erythrocyte distribution wid th standard deviationOrdered By: Audra Drake on 11-02-2024 Erythrocyte distribution width (RBC) [Ratio] 47.3 fl High 35.1-43.9 [facility] Folate [Mass/volume] in Seru m or PlasmaOrdered By: Audra Drake on 11-02-2024 Folate [Mass/Vol] 10.00 ng/mL 4.60-34.80 [facility] Glomerular filtration rate ( GFR) estimation/1.73 sq m using serum, plasma, or whole bOrdered By: Audra Drake on 11-02-2024 GFR/1.73 sq M.predicted among non-blacks MDRD (S/P/Bld) [Vol rate/Area] 90 mL/min/{1.73_m2} >60 [facility] Hematocrit Auto (Bld) [Volum e fraction]Ordered By: Audra Drake on 11-02-2024 Hematocrit (Bld) [Volume fraction] 37.2 % 37-47 [facility] Hemoglobin measurementOrdere d By: Audra Drake on 11-02-2024 Hemoglobin (Bld) [Mass/Vol] 11.7 g/dL Low 12.0-15. 0 [facility] Immature granulocytes/100 WB C Auto (Bld)Ordered By: Audra Drake on 11-02-2024 Immature granulocytes/100 WBC (Bld) 0.200 % 0.0-0.9 [facility] LDL calc ser/plasOrdered By: Audra Drake on 11-02-2024 Cholesterol in LDL [Mass/Vol] 105 mg/dL [facility] MCV (mean corpuscular volume ) determinationOrdered By: Audra Drake on 11-02-2024 MCV (RBC) [Entitic vol] 101.1 fL High 81-99 [facility] Magnesium measurement (mass/ volume)Ordered By: Audra Drake on 11-02-2024 Magnesium (Unsp spec) [Mass/Vol] 2.1 mg/dL 1.5-2.2 [facility] Mean corpuscular hemoglobin (MCH) determinationOrdered By: Audra Drake on 11-02-2024 MCH (RBC) [Entitic mass] 31.8 pg 27.0-32.0 [facility] Monocyte percentageOrdered B y: Audra Drake on 11-02-2024 Monocytes/100 WBC (Bld) 9.1 % 0-10 [facility] Neutrophil percentageOrdered By: Audra Drake on 11-02-2024 Neutrophils/100 WBC (Bld) 59.2 % 47-70 [facility] No Panel InformationOrdered By: Audra Drake on 11-02-2024 18 U/L <32 [facility] Platelet countOrdered By: Dimitris Drake on 11-02-2024 Platelets (Bld) [#/Vol] 209 10*3/uL 150-450 [facility] Potassium measurement (mass/ volume)Ordered By: Audra Drake on 11-02-2024 Potassium (Unsp spec) [Mass/Vol] 4.0 mmol/L 3.3-5.1 [facility] RBC Auto (Bld) [#/Vol]Ordere d By: Audra Drake on 11-02-2024 RBC (Bld) [#/Vol] 3.68 10*6/uL Low 4.2-5.4 [facility] Serum creatinine measurement (mass/volume)Ordered By: Audra Drake on 11-02-2024 Creatinine [Mass/Vol] 0.63 mg/dL Low 0.70-1.20 [facility] Serum globulin measurementOr dered By: Audra Drake on 11-02-2024 Globulin (S) [Mass/Vol] 2.6 g/dL 2.2-4.2 [facility] Serum glucose measurement (m ass/volume)Ordered By: Audra Drake on 11-02-2024 Glucose [Mass/Vol] 79 mg/dL 70-99 [facility] Serum or plasma alanine kim otransferase (ALT) measurementOrdered By: Audra Drake on 11-02-2024 ALT [Catalytic activity/Vol] 10 U/L <35 [facility] Serum or plasma albumin gianluca urement (mass/volume)Ordered By: Audra Drake on 11-02-2024 Albumin [Mass/Vol] 3.6 g/dL 3.4-4.8 [facility] Serum or plasma alkaline nikole sphatase measurementOrdered By: Audra Drake on 11-02-2024 ALP [Catalytic activity/Vol] 75 U/L 35-104 [facility] Serum or plasma calcium gianluca urement (mass/volume)Ordered By: Audra Drake on 11-02-2024 Calcium [Mass/Vol] 9.1 mg/dL 7.6-11.0 [facility] Serum or plasma cholesterol in HDL measurement (mass/volume)Ordered By: Audra Drake on 11-02-2024 Cholesterol in HDL [Mass/Vol] 54 mg/dL >40 [facility] Serum or plasma cholesterol measurement (mass/volume)Ordered By: Audra Drake on 11-02-2024 Cholesterol [Mass/Vol] 175 mg/dL <201 [facility] Serum or plasma urea nitroge n measurement (mass/volume)Ordered By: Audra Drake on 11-02-2024 Urea nitrogen [Mass/Vol] 15 mg/dL 4-19 [facility] Sodium levelOrdered By: Cony Drake on 11-02-2024 Sodium [Moles/Vol] 142 mmol/L 133-145 [facility] Total proteinOrdered By: Rubin Drake on 11-02-2024 Protein [Mass/Vol] 6.2 g/dL 5.9-8.4 [facility] Vitamin B12 ser/plasOrdered By: Audra Drake on 11-02-2024 Cobalamin (Vitamin B12) [Mass/Vol] 585 pg/mL 180-914 [facility] White blood cell (WBC) count Ordered By: Audra Drake on 11-02-2024 WBC (Bld) [#/Vol] 5.6 10*3/uL 4.4-11.0 [facility] Absolute lymphocyte countOrd ered By: Nikia Henderson on 10-14-2024 Lymphocytes Auto (Unsp spec) [#/Vol] 1.49 10*3/uL 0.83-4.51 [facility] Anion gap in Serum or Plasma Ordered By: Nikia Henderson on 10-14-2024 Anion gap [Moles/Vol] 10 mmol/L 5-15 [facility] Automated lymphocyte count a s percentage of total leukocytesOrdered By: Nikia Henderson on 10-14-2024 Lymphocytes/100 WBC Auto (Unsp spec) 27.8 % 19-41 [facility] BUN/creatinine ratioOrdered By: Nikia Henderson on 10-14-2024 Urea nitrogen/Creatinine [Mass ratio] 20.9 mg/mg High 10-20 [facility] Basophil percentageOrdered B y: Nikia Henderson on 10-14-2024 Basophils/100 WBC (Bld) 0.9 % 0-1 [facility] Bilirubin, totalOrdered By: Nikia Henderson on 10-14-2024 Bilirubin [Mass/Vol] 0.22 mg/dL 0.00-1.30 [facility] Carbon dioxide, total [Moles /volume] in Central venous bloodOrdered By: Nikia Henderson on 10-14-2024 CO2 [Moles/Vol] 25.5 mmol/L 21.0-32.0 [facility] Chloride assayOrdered By: Cecilia Henderson on 10-14-2024 Chloride [Moles/Vol] 106 mmol/L 98-108 [facility] Eosinophil percentageOrdered By: Nikia Henderson on 10-14-2024 Eosinophils/100 WBC (Bld) 3.7 % 0-5 [facility] Erythrocyte distribution wid th ratioOrdered By: Nikia Henderson on 10-14-2024 Erythrocyte distribution width (RBC) [Ratio] 12.8 % 11.6-14.6 [facility] Erythrocyte distribution wid th standard deviationOrdered By: Nikia Henderson on 10-14-2024 Erythrocyte distribution width (RBC) [Ratio] 45.7 fl High 35.1-43.9 [facility] Glomerular filtration rate ( GFR) estimation/1.73 sq m using serum, plasma, or whole bOrdered By: Nikia Henderson on 10-14-2024 GFR/1.73 sq M.predicted among non-blacks MDRD (S/P/Bld) [Vol rate/Area] 87 mL/min/{1.73_m2} >60 [facility] Hematocrit Auto (Bld) [Volum e fraction]Ordered By: Nikia Henderson on 10-14-2024 Hematocrit (Bld) [Volume fraction] 34.6 % Low 37-47 [facility] Hemoglobin measurementOrdere d By: Nikia Henderson on 10-14-2024 Hemoglobin (Bld) [Mass/Vol] 11.3 g/dL Low 12.0-15. 0 [facility] Immature granulocytes/100 WB C Auto (Bld)Ordered By: Nikia Henderson on 10-14-2024 Immature granulocytes/100 WBC (Bld) 0.400 % 0.0-0.9 [facility] MCV (mean corpuscular volume ) determinationOrdered By: Nikia Henderson on 10-14-2024 MCV (RBC) [Entitic vol] 98.6 fL 81-99 [facility] Mean corpuscular hemoglobin (MCH) determinationOrdered By: Nikia Henderson on 10-14-2024 MCH (RBC) [Entitic mass] 32.2 pg High 27.0-32.0 [facility] Monocyte percentageOrdered B y: Nikia Henderson on 10-14-2024 Monocytes/100 WBC (Bld) 9.9 % 0-10 [facility] Natriuretic peptide.B prohor rosie N-Terminal [Mass/volume] in Serum or PlasmaOrdered By: Nikia Henderson on 10-14-2024 Natriuretic peptide.B prohormone N-Terminal [Mass/Vol] 371 pg/mL <1800 [facility] Neutrophil percentageOrdered By: Nikia Henderson on 10-14-2024 Neutrophils/100 WBC (Bld) 57.3 % 47-70 [facility] No Panel InformationOrdered By: Nikia Henderson on 10-14-2024 16 U/L <32 [facility] Platelet countOrdered By: Cecilia Henderson on 10-14-2024 Platelets (Bld) [#/Vol] 223 10*3/uL 150-450 [facility] Potassium measurement (mass/ volume)Ordered By: Nikia Henderson on 10-14-2024 Potassium (Unsp spec) [Mass/Vol] 4.2 mmol/L 3.3-5.1 [facility] RBC Auto (Bld) [#/Vol]Ordere d By: Nikia Henderson on 10-14-2024 RBC (Bld) [#/Vol] 3.51 10*6/uL Low 4.2-5.4 [facility] Serum creatinine measurement (mass/volume)Ordered By: Nikia Henderson on 10-14-2024 Creatinine [Mass/Vol] 0.71 mg/dL 0.70-1.20 [facility] Serum globulin measurementOr dered By: Nikia Henderson on 10-14-2024 Globulin (S) [Mass/Vol] 2.6 g/dL 2.2-4.2 [facility] Serum glucose measurement (m ass/volume)Ordered By: Nikia Henderson on 10-14-2024 Glucose [Mass/Vol] 85 mg/dL 70-99 [facility] Serum or plasma alanine kim otransferase (ALT) measurementOrdered By: Nikia Henderson on 10-14-2024 ALT [Catalytic activity/Vol] 11 U/L <35 [facility] Serum or plasma albumin gianluca urement (mass/volume)Ordered By: Nikia Henderson on 10-14-2024 Albumin [Mass/Vol] 3.4 g/dL 3.4-4.8 [facility] Serum or plasma albumin/glob ulin mass ratioOrdered By: Nikia Henderson on 10-14-2024 Albumin/Globulin [Mass ratio] 1.3 {ratio} 0.9-2.4 [facility] Serum or plasma alkaline nikole sphatase measurementOrdered By: Nikia Henderson 10-14-2024 ALP [Catalytic activity/Vol] 79 U/L 35-104 [facility] Serum or plasma calcium gianluca urement (mass/volume)Ordered By: Nikia Henderson 10-14-2024 Calcium [Mass/Vol] 9.0 mg/dL 7.6-11.0 [facility] Serum or plasma urea nitroge n measurement (mass/volume)Ordered By: Nikia Henderson on 10-14-2024 Urea nitrogen [Mass/Vol] 15 mg/dL 4-19 [facility] Sodium levelOrdered By: Catalina Henderson on 10-14-2024 Sodium [Moles/Vol] 141 mmol/L 133-145 [facility] Total proteinOrdered By: Marcelo Henderson on 10-14-2024 Protein [Mass/Vol] 6.0 g/dL 5.9-8.4 [facility] White blood cell (WBC) count Ordered By: Nikia Henderson on 10-14-2024 WBC (Bld) [#/Vol] 5.4 10*3/uL 4.4-11.0 [facility] Absolute lymphocyte countOrd ered By: Audra Drake on 09-28-2024 Lymphocytes Auto (Unsp spec) [#/Vol] 1.50 10*3/uL 0.83-4.51 [facility] Anion gap in Serum or Plasma Ordered By: Audra Drake on 09-28-2024 Anion gap [Moles/Vol] 10 mmol/L 5-15 [facility] Automated lymphocyte count a s percentage of total leukocytesOrdered By: Audra Drake on 09-28-2024 Lymphocytes/100 WBC Auto (Unsp spec) 28.4 % 19-41 [facility] BUN/creatinine ratioOrdered By: Audra Drake on 09-28-2024 Urea nitrogen/Creatinine [Mass ratio] 21.1 mg/mg High 10-20 [facility] Basophil percentageOrdered B y: Audra Drake on 09-28-2024 Basophils/100 WBC (Bld) 0.8 % 0-1 [facility] Carbon dioxide, total [Moles /volume] in Central venous bloodOrdered By: Audra Drake on 09-28-2024 CO2 [Moles/Vol] 25.6 mmol/L 21.0-32.0 [facility] Chloride assayOrdered By: Dimitris Drake on 09-28-2024 Chloride [Moles/Vol] 107 mmol/L 98-108 [facility] Eosinophil percentageOrdered By: Audra Drake on 09-28-2024 Eosinophils/100 WBC (Bld) 3.8 % 0-5 [facility] Erythrocyte distribution wid th ratioOrdered By: Audra Drake on 09-28-2024 Erythrocyte distribution width (RBC) [Ratio] 12.9 % 11.6-14.6 [facility] Erythrocyte distribution wid th standard deviationOrdered By: Audra Drake on 09-28-2024 Erythrocyte distribution width (RBC) [Ratio] 48.7 fl High 35.1-43.9 [facility] Glomerular filtration rate ( GFR) estimation/1.73 sq m using serum, plasma, or whole bOrdered By: Audra Drake on 09-28-2024 GFR/1.73 sq M.predicted among non-blacks MDRD (S/P/Bld) [Vol rate/Area] 91 mL/min/{1.73_m2} >60 [facility] Hematocrit Auto (Bld) [Volum e fraction]Ordered By: Audra Drake on 09-28-2024 Hematocrit (Bld) [Volume fraction] 37.5 % 37-47 [facility] Hemoglobin measurementOrdere d By: Audra Drake on 09-28-2024 Hemoglobin (Bld) [Mass/Vol] 11.9 g/dL Low 12.0-15. 0 [facility] Immature granulocytes/100 WB C Auto (Bld)Ordered By: Audra Drake on 09-28-2024 Immature granulocytes/100 WBC (Bld) 0.400 % 0.0-0.9 [facility] MCV (mean corpuscular volume ) determinationOrdered By: Audra Drake on 09-28-2024 MCV (RBC) [Entitic vol] 102.5 fL High 81-99 [facility] Mean corpuscular hemoglobin (MCH) determinationOrdered By: Audra Drake on 09-28-2024 MCH (RBC) [Entitic mass] 32.5 pg High 27.0-32.0 [facility] Monocyte percentageOrdered B y: Audra Drake on 09-28-2024 Monocytes/100 WBC (Bld) 9.8 % 0-10 [facility] Neutrophil percentageOrdered By: Audra Drake on 09-28-2024 Neutrophils/100 WBC (Bld) 56.8 % 47-70 [facility] Platelet countOrdered By: Dimitris Drake on 09-28-2024 Platelets (Bld) [#/Vol] 209 10*3/uL 150-450 [facility] Potassium measurement (mass/ volume)Ordered By: Audra Drake on 09-28-2024 Potassium (Unsp spec) [Mass/Vol] 4.0 mmol/L 3.3-5.1 [facility] RBC Auto (Bld) [#/Vol]Ordere d By: Audra Drake on 09-28-2024 RBC (Bld) [#/Vol] 3.66 10*6/uL Low 4.2-5.4 [facility] Serum creatinine measurement (mass/volume)Ordered By: Audra Drake on 09-28-2024 Creatinine [Mass/Vol] 0.61 mg/dL Low 0.70-1.20 [facility] Serum glucose measurement (m ass/volume)Ordered By: Audra Drake on 09-28-2024 Glucose [Mass/Vol] 84 mg/dL 70-99 [facility] Serum or plasma calcium gianluca urement (mass/volume)Ordered By: Audra Drake on 09-28-2024 Calcium [Mass/Vol] 9.1 mg/dL 7.6-11.0 [facility] Serum or plasma urea nitroge n measurement (mass/volume)Ordered By: Audra Drake on 09-28-2024 Urea nitrogen [Mass/Vol] 13 mg/dL 4-19 [facility] Sodium levelOrdered By: Cony Drake on 09-28-2024 Sodium [Moles/Vol] 142 mmol/L 133-145 [facility] White blood cell (WBC) count Ordered By: Audra Drake on 09-28-2024 WBC (Bld) [#/Vol] 5.3 10*3/uL 4.4-11.0 [facility] Absolute lymphocyte countOrd ered By: Nikia Henderson on 09-21-2024 Lymphocytes Auto (Unsp spec) [#/Vol] 1.50 10*3/uL 0.83-4.51 [facility] Anion gap in Serum or Plasma Ordered By: Nikia Henderson on 09-21-2024 Anion gap [Moles/Vol] 9 mmol/L 5-15 [facility] Automated lymphocyte count a s percentage of total leukocytesOrdered By: Nikia Henderson on 09-21-2024 Lymphocytes/100 WBC Auto (Unsp spec) 28.4 % -41 [facility] BUN/creatinine ratioOrdered By: Nikia Henderson on 09-21-2024 Urea nitrogen/Creatinine [Mass ratio] 19.5 mg/mg 10-20 [facility] Basophil percentageOrdered B y: Nikia Henderson on 09-21-2024 Basophils/100 WBC (Bld) 0.8 % 0-1 [facility] Carbon dioxide, total [Moles /volume] in Central venous bloodOrdered By: Nikia Henderson on 09-21-2024 CO2 [Moles/Vol] 27.0 mmol/L 21.0-32.0 [facility] Chloride assayOrdered By: Cecilia Henderson on 09-21-2024 Chloride [Moles/Vol] 106 mmol/L 98-108 [facility] Eosinophil percentageOrdered By: Nikia Henderson on 09-21-2024 Eosinophils/100 WBC (Bld) 3.2 % 0-5 [facility] Erythrocyte distribution wid th ratioOrdered By: Nikia Henderson on 09-21-2024 Erythrocyte distribution width (RBC) [Ratio] 12.8 % 11.6-14.6 [facility] Erythrocyte distribution wid th standard deviationOrdered By: Nikia Henderson on 09-21-2024 Erythrocyte distribution width (RBC) [Ratio] 47.9 fl High 35.1-43.9 [facility] Glomerular filtration rate ( GFR) estimation/1.73 sq m using serum, plasma, or whole bOrdered By: Nikia Henderson on 09-21-2024 GFR/1.73 sq M.predicted among non-blacks MDRD (S/P/Bld) [Vol rate/Area] 91 mL/min/{1.73_m2} >60 [facility] Hematocrit Auto (Bld) [Volum e fraction]Ordered By: Nikia Henderson on 09-21-2024 Hematocrit (Bld) [Volume fraction] 35.6 % Low 37-47 [facility] Hemoglobin measurementOrdere d By: Nikia Henderson on 09-21-2024 Hemoglobin (Bld) [Mass/Vol] 11.5 g/dL Low 12.0-15. 0 [facility] Immature granulocytes/100 WB C Auto (Bld)Ordered By: Nikia Henderson on 09-21-2024 Immature granulocytes/100 WBC (Bld) 0.400 % 0.0-0.9 [facility] MCV (mean corpuscular volume ) determinationOrdered By: Nikia Henderson on 09-21-2024 MCV (RBC) [Entitic vol] 102.0 fL High 81-99 [facility] Mean corpuscular hemoglobin (MCH) determinationOrdered By: Nikia Henderson on 09-21-2024 MCH (RBC) [Entitic mass] 33.0 pg High 27.0-32.0 [facility] Monocyte percentageOrdered B y: Nikia Henderson on 09-21-2024 Monocytes/100 WBC (Bld) 9.1 % 0-10 [facility] Neutrophil percentageOrdered By: Nikia Henderson on 09-21-2024 Neutrophils/100 WBC (Bld) 58.1 % 47-70 [facility] Platelet countOrdered By: Cecilia Henderson on 09-21-2024 Platelets (Bld) [#/Vol] 233 10*3/uL 150-450 [facility] Potassium measurement (mass/ volume)Ordered By: Nikia Henderson on 09-21-2024 Potassium (Unsp spec) [Mass/Vol] 3.9 mmol/L 3.3-5.1 [facility] RBC Auto (Bld) [#/Vol]Ordere d By: Catalinafedeheladio Henderson on 09-21-2024 RBC (Bld) [#/Vol] 3.49 10*6/uL Low 4.2-5.4 [facility] Serum creatinine measurement (mass/volume)Ordered By: Nikia Henderson on 09-21-2024 Creatinine [Mass/Vol] 0.62 mg/dL Low 0.70-1.20 [facility] Serum glucose measurement (m ass/volume)Ordered By: Nikia Henderson on 09-21-2024 Glucose [Mass/Vol] 87 mg/dL 70-99 [facility] Serum or plasma calcium gianluca urement (mass/volume)Ordered By: Nikia Henderson on 09-21-2024 Calcium [Mass/Vol] 9.2 mg/dL 7.6-11.0 [facility] Serum or plasma urea nitroge n measurement (mass/volume)Ordered By: Nikia Henderson on 09-21-2024 Urea nitrogen [Mass/Vol] 12 mg/dL 4-19 [facility] Sodium levelOrdered By: Catalina Henderson on 09-21-2024 Sodium [Moles/Vol] 142 mmol/L 133-145 [facility] White blood cell (WBC) count Ordered By: Ceciliaguanakoterra Cristobaljanicevioletta on 09-21-2024 WBC (Bld) [#/Vol] 5.3 10*3/uL 4.4-11.0 [facility] Absolute lymphocyte countOrd ered By: Ceciliaguanakoterra Henderson on 09-14-2024 Lymphocytes Auto (Unsp spec) [#/Vol] 1.52 10*3/uL 0.83-4.51 [facility] Anion gap in Serum or Plasma Ordered By: Catalinafedeheladio aJinjanicevioletta on 09-14-2024 Anion gap [Moles/Vol] 10 mmol/L 5-15 [facility] Automated lymphocyte count a s percentage of total leukocytesOrdered By: Catalinaterra Cristobalromi on 09-14-2024 Lymphocytes/100 WBC Auto (Unsp spec) 28.4 % 19-41 [facility] BUN/creatinine ratioOrdered By: Catalinaterra Cristobaljanicevioletta on 09-14-2024 Urea nitrogen/Creatinine [Mass ratio] 20.5 mg/mg High 10-20 [facility] Basophil percentageOrdered B y: Catalinafedeheladio Jainjanicevioletta on 09-14-2024 Basophils/100 WBC (Bld) 0.9 % 0-1 [facility] Carbon dioxide, total [Moles /volume] in Central venous bloodOrdered By: Nikia Jainjanicevioletta on 09-14-2024 CO2 [Moles/Vol] 24.5 mmol/L 21.0-32.0 [facility] Chloride assayOrdered By: Cecilia guanakoterra Jainjanicevioletta on 09-14-2024 Chloride [Moles/Vol] 106 mmol/L 98-108 [facility] Eosinophil percentageOrdered By: Catalinafedeheladio Jainjanicevioletta on 09-14-2024 Eosinophils/100 WBC (Bld) 3.9 % 0-5 [facility] Erythrocyte distribution wid th ratioOrdered By: Nikia Jainjanicevioletta on 09-14-2024 Erythrocyte distribution width (RBC) [Ratio] 13.1 % 11.6-14.6 [facility] Erythrocyte distribution wid th standard deviationOrdered By: Nikia Henderson on 09-14-2024 Erythrocyte distribution width (RBC) [Ratio] 49.0 fl High 35.1-43.9 [facility] Glomerular filtration rate ( GFR) estimation/1.73 sq m using serum, plasma, or whole bOrdered By: Nikia Henderson on 09-14-2024 GFR/1.73 sq M.predicted among non-blacks MDRD (S/P/Bld) [Vol rate/Area] 92 mL/min/{1.73_m2} >60 [facility] Hematocrit Auto (Bld) [Volum e fraction]Ordered By: Nikia Henderson on 09-14-2024 Hematocrit (Bld) [Volume fraction] 34.7 % Low 37-47 [facility] Hemoglobin measurementOrdere d By: Nikia Henderson on 09-14-2024 Hemoglobin (Bld) [Mass/Vol] 11.3 g/dL Low 12.0-15. 0 [facility] Immature granulocytes/100 WB C Auto (Bld)Ordered By: Nikia Henderson on 09-14-2024 Immature granulocytes/100 WBC (Bld) 0.200 % 0.0-0.9 [facility] MCV (mean corpuscular volume ) determinationOrdered By: Nikia Henderson on 09-14-2024 MCV (RBC) [Entitic vol] 101.8 fL High 81-99 [facility] Mean corpuscular hemoglobin (MCH) determinationOrdered By: Nikia Henderson on 09-14-2024 MCH (RBC) [Entitic mass] 33.1 pg High 27.0-32.0 [facility] Monocyte percentageOrdered B y: Nikia Henderson on 09-14-2024 Monocytes/100 WBC (Bld) 9.7 % 0-10 [facility] Neutrophil percentageOrdered By: Nikia Henderson on 09-14-2024 Neutrophils/100 WBC (Bld) 56.9 % 47-70 [facility] Platelet countOrdered By: Cecilia Jainjanicevioletta on 09-14-2024 Platelets (Bld) [#/Vol] 216 10*3/uL 150-450 [facility] Potassium measurement (mass/ volume)Ordered By: Nikia Cristobalromi on 09-14-2024 Potassium (Unsp spec) [Mass/Vol] 4.0 mmol/L 3.3-5.1 [facility] RBC Auto (Bld) [#/Vol]Ordere d By: Nikia Cristobalromi on 09-14-2024 RBC (Bld) [#/Vol] 3.41 10*6/uL Low 4.2-5.4 [facility] Serum creatinine measurement (mass/volume)Ordered By: Ceciliaguanakofedeheladio Jainjanicevioletta on 09-14-2024 Creatinine [Mass/Vol] 0.60 mg/dL Low 0.70-1.20 [facility] Serum glucose measurement (m ass/volume)Ordered By: Cecilialaura Jainjanicevioletta on 09-14-2024 Glucose [Mass/Vol] 77 mg/dL 70-99 [facility] Serum or plasma calcium gianluca urement (mass/volume)Ordered By: Ceciliaguanakoterra Cristobalromi on 09-14-2024 Calcium [Mass/Vol] 9.0 mg/dL 7.6-11.0 [facility] Serum or plasma urea nitroge n measurement (mass/volume)Ordered By: Cecilialaura Jainjanicevioletta on 09-14-2024 Urea nitrogen [Mass/Vol] 12 mg/dL 4-19 [facility] Sodium levelOrdered By: Catalina ellison Cristobaljanicevioletta on 09-14-2024 Sodium [Moles/Vol] 140 mmol/L 133-145 [facility] White blood cell (WBC) count Ordered By: Ceciliaguanakoterra Cristobaljanicevioletta on 09-14-2024 WBC (Bld) [#/Vol] 5.4 10*3/uL 4.4-11.0 [facility] Absolute lymphocyte countOrd ered By: Nikia Cristobaljanicevioletta on 09-07-2024 Lymphocytes Auto (Unsp spec) [#/Vol] 1.52 10*3/uL 0.83-4.51 [facility] Anion gap in Serum or Plasma Ordered By: Eflaura Henderson on 09-07-2024 Anion gap [Moles/Vol] 9 mmol/L 5- [facility] Automated lymphocyte count a s percentage of total leukocytesOrdered By: Nikia Henderson on 09-07-2024 Lymphocytes/100 WBC Auto (Unsp spec) 28.4 % 19- [facility] BUN/creatinine ratioOrdered By: Catalinarileyheladio Henderson on 09-07-2024 Urea nitrogen/Creatinine [Mass ratio] 23.0 mg/mg High 10- [facility] Basophil percentageOrdered B y: Nikia Henderson on 09-07-2024 Basophils/100 WBC (Bld) 0.9 % 0-1 [facility] CNPNon 09-07-2024 CNPN Telephone (ENDOMN) LIZETTE DAVIES ([id number]) 1945 F Date Time Provider Department 09/07/24 [...] mouth once daily. - COMPOUNDED PRESCRIPTION [facility] defense 17 drops daily and working up to 60 drops daily (in divided doses). Serving size 30 drops. 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 Normal [facility] Carbon dioxide, total [Moles /volume] in Central venous bloodOrdered By: Nikia Henderson on 09-07-2024 CO2 [Moles/Vol] 25.2 mmol/L 21.0-32.0 [facility] Chloride assayOrdered By: Cecilia Henderson on 09-07-2024 Chloride [Moles/Vol] 108 mmol/L 98-108 [facility] Eosinophil percentageOrdered By: Nikia Henderson on 09-07-2024 Eosinophils/100 WBC (Bld) 2.8 % 0-5 [facility] Erythrocyte distribution wid th ratioOrdered By: Nikia Henderson on 09-07-2024 Erythrocyte distribution width (RBC) [Ratio] 13.0 % 11.6-14.6 [facility] Erythrocyte distribution wid th standard deviationOrdered By: Catalinarileyheladio Hendreson on 09-07-2024 Erythrocyte distribution width (RBC) [Ratio] 48.7 fl High 35.1-43.9 [facility] Glomerular filtration rate ( GFR) estimation/1.73 sq m using serum, plasma, or whole bOrdered By: Nikia Henderson on 09-07-2024 GFR/1.73 sq M.predicted among non-blacks MDRD (S/P/Bld) [Vol rate/Area] 87 mL/min/{1.73_m2} >60 [facility] Hematocrit Auto (Bld) [Volum e fraction]Ordered By: Nikia Henderson on 09-07-2024 Hematocrit (Bld) [Volume fraction] 34.3 % Low 37-47 [facility] Hemoglobin measurementOrdere d By: Nikia Cristobaljanicevioletta on 09-07-2024 Hemoglobin (Bld) [Mass/Vol] 11.1 g/dL Low 12.0-15. 0 [facility] Immature granulocytes/100 WB C Auto (Bld)Ordered By: Nikia Jainjanicevioletta on 09-07-2024 Immature granulocytes/100 WBC (Bld) 0.200 % 0.0-0.9 [facility] MCV (mean corpuscular volume ) determinationOrdered By: Nikia Henderson on 09-07-2024 MCV (RBC) [Entitic vol] 101.2 fL High 81-99 [facility] Mean corpuscular hemoglobin (MCH) determinationOrdered By: Nikia Jainjanicevioletta on 09-07-2024 MCH (RBC) [Entitic mass] 32.7 pg High 27.0-32.0 [facility] Monocyte percentageOrdered B y: Nikia Jainjanicevioletta on 09-07-2024 Monocytes/100 WBC (Bld) 10.4 % High 0-10 [facility] Neutrophil percentageOrdered By: guanakofedeheladio Jainjaniecvioletta on 09-07-2024 Neutrophils/100 WBC (Bld) 57.3 % 47-70 [facility] Platelet countOrdered By: Cecilia laura Cristobaljanicevioletta on 09-07-2024 Platelets (Bld) [#/Vol] 203 10*3/uL 150-450 [facility] Potassium measurement (mass/ volume)Ordered By: Nikia Henderson on 09-07-2024 Potassium (Unsp spec) [Mass/Vol] 4.1 mmol/L 3.3-5.1 [facility] RBC Auto (Bld) [#/Vol]Ordere d By: Ceciliaguanakofedeheladio Jainjanicevioletta on 09-07-2024 RBC (Bld) [#/Vol] 3.39 10*6/uL Low 4.2-5.4 [facility] Serum creatinine measurement (mass/volume)Ordered By: Nikia Henderson on 09-07-2024 Creatinine [Mass/Vol] 0.71 mg/dL 0.70-1.20 [facility] Serum glucose measurement (m ass/volume)Ordered By: Nikia Henderson on 09-07-2024 Glucose [Mass/Vol] 87 mg/dL 70-99 [facility] Serum or plasma calcium gianluca urement (mass/volume)Ordered By: Nikia Henderson on 09-07-2024 Calcium [Mass/Vol] 8.9 mg/dL 7.6-11.0 [facility] Serum or plasma urea nitroge n measurement (mass/volume)Ordered By: Nikia Henderson on 09-07-2024 Urea nitrogen [Mass/Vol] 16 mg/dL 4-19 [facility] Sodium levelOrdered By: Catalina connerling Beatriz on 09-07-2024 Sodium [Moles/Vol] 142 mmol/L 133-145 [facility] White blood cell (WBC) count Ordered By: Nikia Henderson on 09-07-2024 WBC (Bld) [#/Vol] 5.4 10*3/uL 4.4-11.0 [facility] Absolute lymphocyte countOrd ered By: Audra Drake on 08-31-2024 Lymphocytes Auto (Unsp spec) [#/Vol] 1.73 10*3/uL 0.83-4.51 [facility] Anion gap in Serum or Plasma Ordered By: Audra Drake on 08-31-2024 Anion gap [Moles/Vol] 10 mmol/L 5-15 [facility] Automated lymphocyte count a s percentage of total leukocytesOrdered By: Audra Drake on 08-31-2024 Lymphocytes/100 WBC Auto (Unsp spec) 27.5 % 19-41 [facility] BUN/creatinine ratioOrdered By: Audra Drake on 08-31-2024 Urea nitrogen/Creatinine [Mass ratio] 20.3 mg/mg High 10-20 [facility] Basophil percentageOrdered B y: Audra Drake on 08-31-2024 Basophils/100 WBC (Bld) 0.6 % 0-1 [facility] Carbon dioxide, total [Moles /volume] in Central venous bloodOrdered By: Audra Drake on 08-31-2024 CO2 [Moles/Vol] 24.3 mmol/L 21.0-32.0 [facility] Chloride assayOrdered By: Dimitris Drake on 08-31-2024 Chloride [Moles/Vol] 106 mmol/L 98-108 [facility] Eosinophil percentageOrdered By: Audra Drake on 08-31-2024 Eosinophils/100 WBC (Bld) 2.4 % 0-5 [facility] Erythrocyte distribution wid th ratioOrdered By: Audra Drake on 08-31-2024 Erythrocyte distribution width (RBC) [Ratio] 13.3 % 11.6-14.6 [facility] Erythrocyte distribution wid th standard deviationOrdered By: Audra Drake on 08-31-2024 Erythrocyte distribution width (RBC) [Ratio] 50.0 fl High 35.1-43.9 [facility] Glomerular filtration rate ( GFR) estimation/1.73 sq m using serum, plasma, or whole bOrdered By: Audra Drake on 08-31-2024 GFR/1.73 sq M.predicted among non-blacks MDRD (S/P/Bld) [Vol rate/Area] 91 mL/min/{1.73_m2} >60 [facility] Hematocrit Auto (Bld) [Volum e fraction]Ordered By: Audra Drake on 08-31-2024 Hematocrit (Bld) [Volume fraction] 34.9 % Low 37-47 [facility] Hemoglobin measurementOrdere d By: Audra Drake on 08-31-2024 Hemoglobin (Bld) [Mass/Vol] 11.0 g/dL Low 12.0-15. 0 [facility] Immature granulocytes/100 WB C Auto (Bld)Ordered By: Audra Drake on 08-31-2024 Immature granulocytes/100 WBC (Bld) 0.500 % 0.0-0.9 [facility] MCV (mean corpuscular volume ) determinationOrdered By: Audra Drake on 08-31-2024 MCV (RBC) [Entitic vol] 101.7 fL High 81-99 [facility] Mean corpuscular hemoglobin (MCH) determinationOrdered By: Audra Drake on 08-31-2024 MCH (RBC) [Entitic mass] 32.1 pg High 27.0-32.0 [facility] Monocyte percentageOrdered B y: Audra Drake on 08-31-2024 Monocytes/100 WBC (Bld) 9.4 % 0-10 [facility] Neutrophil percentageOrdered By: Audra Drake on 08-31-2024 Neutrophils/100 WBC (Bld) 59.6 % 47-70 [facility] Platelet countOrdered By: Dimitris Drake on 08-31-2024 Platelets (Bld) [#/Vol] 208 10*3/uL 150-450 [facility] Potassium measurement (mass/ volume)Ordered By: Audra Drake on 08-31-2024 Potassium (Unsp spec) [Mass/Vol] 4.2 mmol/L 3.3-5.1 [facility] RBC Auto (Bld) [#/Vol]Ordere d By: Audra Drake on 08-31-2024 RBC (Bld) [#/Vol] 3.43 10*6/uL Low 4.2-5.4 [facility] Serum creatinine measurement (mass/volume)Ordered By: Audra Drake on 08-31-2024 Creatinine [Mass/Vol] 0.63 mg/dL Low 0.70-1.20 [facility] Serum glucose measurement (m ass/volume)Ordered By: Audra Drake on 08-31-2024 Glucose [Mass/Vol] 81 mg/dL 70-99 [facility] Serum or plasma calcium gianluca urement (mass/volume)Ordered By: Audra Drake on 08-31-2024 Calcium [Mass/Vol] 8.8 mg/dL 7.6-11.0 [facility] Serum or plasma urea nitroge n measurement (mass/volume)Ordered By: Audra Drake on 08-31-2024 Urea nitrogen [Mass/Vol] 13 mg/dL 4-19 [facility] Sodium levelOrdered By: Cony Drake on 08-31-2024 Sodium [Moles/Vol] 141 mmol/L 133-145 [facility] White blood cell (WBC) count Ordered By: Audra Drake on 08-31-2024 WBC (Bld) [#/Vol] 6.3 10*3/uL 4.4-11.0 [facility] Absolute lymphocyte countOrd ered By: Nikia Henderson on 08-24-2024 Lymphocytes Auto (Unsp spec) [#/Vol] 1.65 10*3/uL 0.83-4.51 [facility] Anion gap in Serum or Plasma Ordered By: Nikia Henderson on 08-24-2024 Anion gap [Moles/Vol] 9 mmol/L 5-15 [facility] Automated lymphocyte count a s percentage of total leukocytesOrdered By: Nikia Henderson on 08-24-2024 Lymphocytes/100 WBC Auto (Unsp spec) 25.9 % 19-41 [facility] BUN/creatinine ratioOrdered By: [facility] on 08-24-2024 Urea nitrogen/Creatinine [Mass ratio] 20.0 mg/mg 10-20 [facility] Basophil percentageOrdered B y: Nikia Henderson on 08-24-2024 Basophils/100 WBC (Bld) 0.6 % 0-1 [facility] Carbon dioxide, total [Moles /volume] in Central venous bloodOrdered By: Nikia Henderson on 08-24-2024 CO2 [Moles/Vol] 26.4 mmol/L 21.0-32.0 [facility] Chloride assayOrdered By: Cecilia Henderson on 08-24-2024 Chloride [Moles/Vol] 107 mmol/L 98-108 [facility] Eosinophil percentageOrdered By: laura Henderson on 08-24-2024 Eosinophils/100 WBC (Bld) 2.5 % 0-5 [facility] Erythrocyte distribution wid th ratioOrdered By: Nikia Henderson on 08-24-2024 Erythrocyte distribution width (RBC) [Ratio] 13.1 % 11.6-14.6 [facility] Erythrocyte distribution wid th standard deviationOrdered By: laura Henderson on 08-24-2024 Erythrocyte distribution width (RBC) [Ratio] 49.5 fl High 35.1-43.9 [facility] Glomerular filtration rate ( GFR) estimation/1.73 sq m using serum, plasma, or whole bOrdered By: Nikia Henderson on 08-24-2024 GFR/1.73 sq M.predicted among non-blacks MDRD (S/P/Bld) [Vol rate/Area] 80 mL/min/{1.73_m2} >60 [facility] Hematocrit Auto (Bld) [Volum e fraction]Ordered By: Nikia Henderson on 08-24-2024 Hematocrit (Bld) [Volume fraction] 36.3 % Low 37-47 [facility] Hemoglobin measurementOrdere d By: Catalinaterra Cristobaljanicevioletta on 08-24-2024 Hemoglobin (Bld) [Mass/Vol] 11.7 g/dL Low 12.0-15. 0 [facility] Immature granulocytes/100 WB C Auto (Bld)Ordered By: Nikia Jainjanicevioletta on 08-24-2024 Immature granulocytes/100 WBC (Bld) 0.300 % 0.0-0.9 [facility] MCV (mean corpuscular volume ) determinationOrdered By: Nikia Henderson on 08-24-2024 MCV (RBC) [Entitic vol] 102.0 fL High 81-99 [facility] Mean corpuscular hemoglobin (MCH) determinationOrdered By: laura Jainjanicevioletta on 08-24-2024 MCH (RBC) [Entitic mass] 32.9 pg High 27.0-32.0 [facility] Monocyte percentageOrdered B y: Nikia Jainjanicevioletta on 08-24-2024 Monocytes/100 WBC (Bld) 10.0 % 0-10 [facility] Neutrophil percentageOrdered By: guanakorileyheladio Henderson on 08-24-2024 Neutrophils/100 WBC (Bld) 60.7 % 47-70 [facility] Platelet countOrdered By: Cecilia laura Cristobaljanicevioletta on 08-24-2024 Platelets (Bld) [#/Vol] 227 10*3/uL 150-450 [facility] Potassium measurement (mass/ volume)Ordered By: Cecilialaura Jainjanicevioletta on 08-24-2024 Potassium (Unsp spec) [Mass/Vol] 4.1 mmol/L 3.3-5.1 [facility] RBC Auto (Bld) [#/Vol]Ordere d By: Catalinafedeheladio Jainjanicevioletta on 08-24-2024 RBC (Bld) [#/Vol] 3.56 10*6/uL Low 4.2-5.4 [facility] Serum creatinine measurement (mass/volume)Ordered By: Nikia Henderson on 08-24-2024 Creatinine [Mass/Vol] 0.76 mg/dL 0.70-1.20 [facility] Serum glucose measurement (m ass/volume)Ordered By: Nikia Henderson on 08-24-2024 Glucose [Mass/Vol] 88 mg/dL 70-99 [facility] Serum or plasma calcium gianluca urement (mass/volume)Ordered By: Catalinarileyheladio Henderson on 08-24-2024 Calcium [Mass/Vol] 9.0 mg/dL 7.6-11.0 [facility] Serum or plasma urea nitroge n measurement (mass/volume)Ordered By: Catalinarileyheladio Henderson on 08-24-2024 Urea nitrogen [Mass/Vol] 15 mg/dL 4-19 [facility] Sodium levelOrdered By: Catalina Henderson on 08-24-2024 Sodium [Moles/Vol] 142 mmol/L 133-145 [facility] White blood cell (WBC) count Ordered By: Nikia Henderson on 08-24-2024 WBC (Bld) [#/Vol] 6.4 10*3/uL 4.4-11.0 [facility] CNPNon 08-22-2024 CNPN Telephone (EMQ) LIZETTE DAVIES ([id number]) 1945 F Date Time Provider Department 08/22/24 [...] to the Jorje Chandra Auth Appeals Pool ([id number]). You can find templates listed below to support your appeal in [facility] (Epic drop down, select patient care, select send letter). If it is an urgent request, you can email the GABY Chandra auth Team at [email or web address]. Please make sure the documents below are completed in order to process your request. If the appeal is denied, do you want to schedule a peer to peer Yes/No. We will schedule peer to peer automatically if yes. Thank You, Jorje Chandra Auth Appeals Team Jorje GRIFFIN Appeal letter Jorje GRIFFIN Letter of Medical Necessity Jorje GRIFFIN [place] Mary Prior Emergency Services Professional III Endocrinology AND Metabolism [place] Letter scanned into chart Allergies As of [...] mouth once daily. - COMPOUNDED PRESCRIPTION Viki IM-Sense defense 17 drops daily and working up to 60 drops daily (in divided doses). Serving size 30 drops. 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 Dx: Bilat sprained ankles, gait [...] NOS [K92.2] 03/08/2005 MYALGIA AND MYOSITIS NOS [[id number]] 09/02/2005 CONGENITAL PES PLANUS [Q66.50] 06/29/2007 Tibialis Tendinitis [M76.829] 10/19/2007 Generalized Osteoarthrosis, Unspecified Site [M*04/05/2008 Contact Dermatitis and Other Eczema, due to Uns*04/05/2008 Morbid obesity with BMI of 40.0-44.9, adult (HC* 01/25/2016 Low back pain [M54.50] 12/14/2013 Numbness and tingling in hands [R20.0, R20.2] 12/14/2013 Spinal cord lesion (HCC) [G95.9] 12/14/2013 Neck pain [M54.2] (more content not included)... Normal [facility] Absolute lymphocyte countOrd ered By: Nikia Henderson on 08-17-2024 Lymphocytes Auto (Unsp spec) [#/Vol] 1.53 10*3/uL 0.83-4.51 [facility] Anion gap in Serum or Plasma Ordered By: Nikia Henderson on 08-17-2024 Anion gap [Moles/Vol] 10 mmol/L 5- [facility] Automated lymphocyte count a s percentage of total leukocytesOrdered By: Nikia Henderson on 08-17-2024 Lymphocytes/100 WBC Auto (Unsp spec) 26.2 % 19- [facility] BUN/creatinine ratioOrdered By: Nikia Henderson on 08-17-2024 Urea nitrogen/Creatinine [Mass ratio] 20.9 mg/mg High 10- [facility] Basophil percentageOrdered B y: Nikia Henderson on 08-17-2024 Basophils/100 WBC (Bld) 0.9 % 0-1 [facility] Carbon dioxide, total [Moles /volume] in Central venous bloodOrdered By: Nikia Henderson on 08-17-2024 CO2 [Moles/Vol] 26.8 mmol/L 21.0-32.0 [facility] Chloride assayOrdered By: Cecilia Henderson on 08-17-2024 Chloride [Moles/Vol] 106 mmol/L 98-108 [facility] Eosinophil percentageOrdered By: Nikia Henderson on 08-17-2024 Eosinophils/100 WBC (Bld) 2.1 % 0-5 [facility] Erythrocyte distribution wid th ratioOrdered By: Nikia Henderson on 08-17-2024 Erythrocyte distribution width (RBC) [Ratio] 13.4 % 11.6-14.6 [facility] Erythrocyte distribution wid th standard deviationOrdered By: Nikia Henderson on 08-17-2024 Erythrocyte distribution width (RBC) [Ratio] 50.2 fl High 35.1-43.9 [facility] Glomerular filtration rate ( GFR) estimation/1.73 sq m using serum, plasma, or whole bOrdered By: Nikia Henderson on 08-17-2024 GFR/1.73 sq M.predicted among non-blacks MDRD (S/P/Bld) [Vol rate/Area] 90 mL/min/{1.73_m2} >60 [facility] Hematocrit Auto (Bld) [Volum e fraction]Ordered By: Nikia Henderson on 08-17-2024 Hematocrit (Bld) [Volume fraction] 34.6 % Low 37-47 [facility] Hemoglobin measurementOrdere d By: Nikia Henderson on 08-17-2024 Hemoglobin (Bld) [Mass/Vol] 11.2 g/dL Low 12.0-15. 0 [facility] Immature granulocytes/100 WB C Auto (Bld)Ordered By: Nikia Henderson on 08-17-2024 Immature granulocytes/100 WBC (Bld) 0.500 % 0.0-0.9 [facility] MCV (mean corpuscular volume ) determinationOrdered By: Nikia Henderson on 08-17-2024 MCV (RBC) [Entitic vol] 102.7 fL High 81-99 [facility] Mean corpuscular hemoglobin (MCH) determinationOrdered By: Nikia Henderson 08-17-2024 MCH (RBC) [Entitic mass] 33.2 pg High 27.0-32.0 [facility] Monocyte percentageOrdered B y: Nikia Henderson on 08-17-2024 Monocytes/100 WBC (Bld) 9.8 % 0-10 [facility] Neutrophil percentageOrdered By: Nikia Henderson on 08-17-2024 Neutrophils/100 WBC (Bld) 60.5 % 47-70 [facility] Platelet countOrdered By: Cecilia laura Cristobalromi on 08-17-2024 Platelets (Bld) [#/Vol] 235 10*3/uL 150-450 [facility] Potassium measurement (mass/ volume)Ordered By: Onelheladio Jainromi on 08-17-2024 Potassium (Unsp spec) [Mass/Vol] 3.9 mmol/L 3.3-5.1 [facility] RBC Auto (Bld) [#/Vol]Ordere d By: Nikia Cristobalromi on 08-17-2024 RBC (Bld) [#/Vol] 3.37 10*6/uL Low 4.2-5.4 [facility] Serum creatinine measurement (mass/volume)Ordered By: Ceciliaguanakoterra Cristobalromi on 08-17-2024 Creatinine [Mass/Vol] 0.66 mg/dL Low 0.70-1.20 [facility] Serum glucose measurement (m ass/volume)Ordered By: Ceciliaguanakofedeheladio Jainjanicevioletta on 08-17-2024 Glucose [Mass/Vol] 84 mg/dL 70-99 [facility] Serum or plasma calcium gianluca urement (mass/volume)Ordered By: Ceciliaguanakoterra Cristobaljanicevioletta on 08-17-2024 Calcium [Mass/Vol] 9.1 mg/dL 7.6-11.0 [facility] Serum or plasma urea nitroge n measurement (mass/volume)Ordered By: Cecilialaura Jainjanicevioletta on 08-17-2024 Urea nitrogen [Mass/Vol] 14 mg/dL 4-19 [facility] Sodium levelOrdered By: Ceciliaguanako terra Cristobaljanicevioletta on 08-17-2024 Sodium [Moles/Vol] 143 mmol/L 133-145 [facility] White blood cell (WBC) count Ordered By: Catalinaterra Henderson on 08-17-2024 WBC (Bld) [#/Vol] 5.8 10*3[facility]uL 4.4[facility]SP[facility] ) LIZETTE DAVIES ([id number]) 1945 F Date Time Provider Department 08/13/24 8:00 AM SETH CHOWDARY SPMN During your visit today, we recorded the following information about you: Pulse Respiration Blood pressure Weight 98/minute 18/minute 148/103 68 kg Height 1.473 m Seth Chowdary MD 08/13/2024 8:45 AM Signed SPINE SURGERY OUTPATIENT CONSULT This is an in-person visit. SERVICE DATE: 08/13/2024 PCP: Michael Snowden MD REFERRING PROVIDER: Jovanni Matthew [id number] [id number] Lizette Davies is a 78 year old [...] walked recently and currently resides in a halfway facility. She does not report bowel or [...] (degenerative disc disease), cervical MRI scanned into [facility] January 11, 2014 ([facility]) DDD (degenerative disc disease), lumbosacral Essential hypertension, benign Dr. Daniels Gastroparesis Mild to moderate--test done 09/2014 Generalized OA Heart attack (HCC) Hemorrhage of gastrointestinal tract 01/2015 EGD "huge ulcer" 01/2015 all cleared 03/2015Edis MD Hemorrhage of gastrointestinal tract, unspecified 03/08/2005 [...] DIAGNOSTIC 02/16/15 (more content not included)... Normal [facility] Absolute lymphocyte countOrd ered By: Niika Henderson on 08-10-2024 Lymphocytes Auto (Unsp spec) [#/Vol] 1.61 10*3/uL 0.83-4.51 [facility] Anion gap in Serum or Plasma Ordered By: Nikia Henderson on 08-10-2024 Anion gap [Moles/Vol] 10 mmol/L 5-15 [facility] Automated lymphocyte count a s percentage of total leukocytesOrdered By: Nikia Henderson on 08-10-2024 Lymphocytes/100 WBC Auto (Unsp spec) 28.1 % 19-41 [facility] BUN/creatinine ratioOrdered By: Nikia Henderson on 08-10-2024 Urea nitrogen/Creatinine [Mass ratio] 19.5 mg/mg 10-20 [facility] Basophil percentageOrdered B y: Nikia Henderson on 08-10-2024 Basophils/100 WBC (Bld) 0.9 % 0-1 [facility] Carbon dioxide, total [Moles /volume] in Central venous bloodOrdered By: Nikia Henderson on 08-10-2024 CO2 [Moles/Vol] 24.9 mmol/L 21.0-32.0 [facility] Chloride assayOrdered By: Cecilia Henderson on 08-10-2024 Chloride [Moles/Vol] 106 mmol/L 98-108 [facility] Eosinophil percentageOrdered By: Nikia Henderson on 08-10-2024 Eosinophils/100 WBC (Bld) 3.0 % 0-5 [facility] Erythrocyte distribution wid th ratioOrdered By: Nikia Henderson on 08-10-2024 Erythrocyte distribution width (RBC) [Ratio] 13.6 % 11.6-14.6 [facility] Erythrocyte distribution wid th standard deviationOrdered By: Nikia Henderson on 08-10-2024 Erythrocyte distribution width (RBC) [Ratio] 51.5 fl High 35.1-43.9 [facility] Glomerular filtration rate ( GFR) estimation/1.73 sq m using serum, plasma, or whole bOrdered By: Nikia Henderson on 08-10-2024 GFR/1.73 sq M.predicted among non-blacks MDRD (S/P/Bld) [Vol rate/Area] 92 mL/min/{1.73_m2} >60 [facility] Hematocrit Auto (Bld) [Volum e fraction]Ordered By: Nikia Henderson on 08-10-2024 Hematocrit (Bld) [Volume fraction] 35.1 % Low 37-47 [facility] Hemoglobin measurementOrdere d By: Nikia Henderson 08-10-2024 Hemoglobin (Bld) [Mass/Vol] 11.3 g/dL Low 12.0-15. 0 [facility] Immature granulocytes/100 WB C Auto (Bld)Ordered By: Nikia Henderson on 08-10-2024 Immature granulocytes/100 WBC (Bld) 0.200 % 0.0-0.9 [facility] MCV (mean corpuscular volume ) determinationOrdered By: Nikia Henderson 08-10-2024 MCV (RBC) [Entitic vol] 103.2 fL High 81-99 [facility] Mean corpuscular hemoglobin (MCH) determinationOrdered By: Nikia Henderson 08-10-2024 MCH (RBC) [Entitic mass] 33.2 pg High 27.0-32.0 [facility] Monocyte percentageOrdered B y: Nikia eHnderson on 08-10-2024 Monocytes/100 WBC (Bld) 9.3 % 0-10 [facility] Neutrophil percentageOrdered By: Nikia Henderson on 08-10-2024 Neutrophils/100 WBC (Bld) 58.5 % 47-70 [facility] Platelet countOrdered By: Cecilia laura Cristobaljanicevioletta on 08-10-2024 Platelets (Bld) [#/Vol] 233 10*3/uL 150-450 [facility] Potassium measurement (mass/ volume)Ordered By: Cecilialaura Jainjanicevioletta on 08-10-2024 Potassium (Unsp spec) [Mass/Vol] 4.0 mmol/L 3.3-5.1 [facility] RBC Auto (Bld) [#/Vol]Ordere d By: Nikia Cristobalromi on 08-10-2024 RBC (Bld) [#/Vol] 3.40 10*6/uL Low 4.2-5.4 [facility] Serum creatinine measurement (mass/volume)Ordered By: Ceciliaguanakofedeheladio Jainjanicevioletta on 08-10-2024 Creatinine [Mass/Vol] 0.59 mg/dL Low 0.70-1.20 [facility] Serum glucose measurement (m ass/volume)Ordered By: Cecilialaura Jainjanicevioletta on 08-10-2024 Glucose [Mass/Vol] 80 mg/dL 70-99 [facility] Serum or plasma calcium gianluca urement (mass/volume)Ordered By: Nikia Jainjanicevioletta on 08-10-2024 Calcium [Mass/Vol] 9.0 mg/dL 7.6-11.0 [facility] Serum or plasma urea nitroge n measurement (mass/volume)Ordered By: Nikia Jainjanicevioletta on 08-10-2024 Urea nitrogen [Mass/Vol] 11 mg/dL 4-19 [facility] Sodium levelOrdered By: Ceciliaguanako terra Cristobaljanicevioletta on 08-10-2024 Sodium [Moles/Vol] 141 mmol/L 133-145 [facility] White blood cell (WBC) count Ordered By: Nikia Jainjanicevioletta on 08-10-2024 WBC (Bld) [#/Vol] 5.7 10*3/uL 4.4-11.0 [facility] Absolute lymphocyte countOrd ered By: Audra Drake on 08-03-2024 Lymphocytes Auto (Unsp spec) [#/Vol] 1.37 10*3/uL 0.83-4.51 [facility] Anion gap in Serum or Plasma Ordered By: Audra Drake on 08-03-2024 Anion gap [Moles/Vol] 8 mmol/L 5-15 [facility] Automated lymphocyte count a s percentage of total leukocytesOrdered By: Audra Drake on 08-03-2024 Lymphocytes/100 WBC Auto (Unsp spec) 23.5 % 19-41 [facility] BUN/creatinine ratioOrdered By: Audra Drake on 08-03-2024 Urea nitrogen/Creatinine [Mass ratio] 18.8 mg/mg 10-20 [facility] Basophil percentageOrdered B y: Audra Drake on 08-03-2024 Basophils/100 WBC (Bld) 0.9 % 0-1 [facility] Bilirubin directOrdered By: Audra Drake on 08-03-2024 Bilirubin.direct [Mass/Vol] 0.10 mg/dL 0.00-0.3 0 [facility] Bilirubin, totalOrdered By: Audra Drake on 08-03-2024 Bilirubin [Mass/Vol] 0.17 mg/dL 0.00-1.30 [facility] Carbon dioxide, total [Moles /volume] in Central venous bloodOrdered By: Audra Drake on 08-03-2024 CO2 [Moles/Vol] 24.9 mmol/L 21.0-32.0 [facility] Chloride assayOrdered By: Dimitris Drake on 08-03-2024 Chloride [Moles/Vol] 107 mmol/L 98-108 [facility] Eosinophil percentageOrdered By: Audra Drake on 08-03-2024 Eosinophils/100 WBC (Bld) 2.6 % 0-5 [facility] Erythrocyte distribution wid th ratioOrdered By: Audra Drake on 08-03-2024 Erythrocyte distribution width (RBC) [Ratio] 13.9 % 11.6-14.6 [facility] Erythrocyte distribution wid th standard deviationOrdered By: Audra Drake on 08-03-2024 Erythrocyte distribution width (RBC) [Ratio] 52.4 fl High 35.1-43.9 [facility] Folate [Moles/volume] in Ser um or PlasmaOrdered By: Audra Drake on 08-03-2024 Folate [Moles/Vol] 36.80 ng/mL High 4.60-34.80 [facility] Glomerular filtration rate ( GFR) estimation/1.73 sq m using serum, plasma, or whole bOrdered By: Audra Drake on 08-03-2024 GFR/1.73 sq M.predicted among non-blacks MDRD (S/P/Bld) [Vol rate/Area] 87 mL/min/{1.73_m2} >60 [facility] Hematocrit Auto (Bld) [Volum e fraction]Ordered By: Audra Drake on 08-03-2024 Hematocrit (Bld) [Volume fraction] 33.6 % Low 37-47 [facility] Hemoglobin measurementOrdere d By: Audra Drake on 08-03-2024 Hemoglobin (Bld) [Mass/Vol] 11.0 g/dL Low 12.0-15. 0 [facility] Immature granulocytes/100 WB C Auto (Bld)Ordered By: Audra Drake on 08-03-2024 Immature granulocytes/100 WBC (Bld) 0.300 % 0.0-0.9 [facility] MCV (mean corpuscular volume ) determinationOrdered By: Audra Drake on 08-03-2024 MCV (RBC) [Entitic vol] 103.7 fL High 81-99 [facility] Magnesium measurement (mass/ volume)Ordered By: Audra Drake on 08-03-2024 Magnesium (Unsp spec) [Mass/Vol] 2.3 mg/dL High 1.5-2.2 [facility] Mean corpuscular hemoglobin (MCH) determinationOrdered By: Audra Drake on 08-03-2024 MCH (RBC) [Entitic mass] 34.0 pg High 27.0-32.0 [facility] Monocyte percentageOrdered B y: Audra Drake on 08-03-2024 Monocytes/100 WBC (Bld) 10.3 % High 0-10 [facility] Neutrophil percentageOrdered By: Audra Drake on 08-03-2024 Neutrophils/100 WBC (Bld) 62.4 % 47-70 [facility] No Panel InformationOrdered By: Audra Drake on 08-03-2024 21 U/L <32 [facility] Platelet countOrdered By: Dimitris Drake on 08-03-2024 Platelets (Bld) [#/Vol] 243 10*3/uL 150-450 [facility] Potassium measurement (mass/ volume)Ordered By: Audra Drake on 08-03-2024 Potassium (Unsp spec) [Mass/Vol] 4.4 mmol/L 3.3-5.1 [facility] RBC Auto (Bld) [#/Vol]Ordere d By: Audra Drake on 08-03-2024 RBC (Bld) [#/Vol] 3.24 10*6/uL Low 4.2-5.4 [facility] Serum creatinine measurement (mass/volume)Ordered By: Audra Drake on 08-03-2024 Creatinine [Mass/Vol] 0.71 mg/dL 0.70-1.20 [facility] Serum globulin measurementOr dered By: Audra Drake on 08-03-2024 Globulin (S) [Mass/Vol] 3.0 g/dL 2.2-4.2 [facility] Serum glucose measurement (m ass/volume)Ordered By: Audra Drake on 08-03-2024 Glucose [Mass/Vol] 89 mg/dL 70-99 [facility] Serum or plasma alanine kim otransferase (ALT) measurementOrdered By: Audra Drake on 08-03-2024 ALT [Catalytic activity/Vol] 15 U/L <35 [facility] Serum or plasma albumin gianluca urement (mass/volume)Ordered By: Audra Drake on 08-03-2024 Albumin [Mass/Vol] 3.2 g/dL Low 3.4-4.8 [facility] Serum or plasma alkaline nikole sphatase measurementOrdered By: Audra Drake on 08-03-2024 ALP [Catalytic activity/Vol] 85 U/L 35-104 [facility] Serum or plasma calcium gianluca urement (mass/volume)Ordered By: Audra Drake on 08-03-2024 Calcium [Mass/Vol] 8.8 mg/dL 7.6-11.0 [facility] Serum or plasma urea nitroge n measurement (mass/volume)Ordered By: Audra Drake on 08-03-2024 Urea nitrogen [Mass/Vol] 13 mg/dL 4-19 [facility] Sodium levelOrdered By: Cony Drake on 08-03-2024 Sodium [Moles/Vol] 140 mmol/L 133-145 [facility] Total proteinOrdered By: Rubin Drake on 08-03-2024 Protein [Mass/Vol] 6.2 g/dL 5.9-8.4 [facility] Vitamin B12 ser/plasOrdered By: Audra Drake on 08-03-2024 Cobalamin (Vitamin B12) [Mass/Vol] 1509 pg/mL High 180-914 [facility] White blood cell (WBC) count Ordered By: Audra Drake on 08-03-2024 WBC (Bld) [#/Vol] 5.8 10*3/uL 4.4-11.0 [facility] Absolute lymphocyte countOrd ered By: Audra Drake on 07-27-2024 Lymphocytes Auto (Unsp spec) [#/Vol] 1.57 10*3/uL 0.83-4.51 [facility] Anion gap in Serum or Plasma Ordered By: Audra Drake on 07-27-2024 Anion gap [Moles/Vol] 9 mmol/L 5-15 [facility] Automated lymphocyte count a s percentage of total leukocytesOrdered By: Audra Drake on 07-27-2024 Lymphocytes/100 WBC Auto (Unsp spec) 26.8 % 19-41 [facility] BUN/creatinine ratioOrdered By: Audra Drake on 07-27-2024 Urea nitrogen/Creatinine [Mass ratio] 19.1 mg/mg 10-20 [facility] Basophil percentageOrdered B y: Audra Drake on 07-27-2024 Basophils/100 WBC (Bld) 0.7 % 0-1 [facility] Carbon dioxide, total [Moles /volume] in Central venous bloodOrdered By: Audra Drake on 07-27-2024 CO2 [Moles/Vol] 24.8 mmol/L 21.0-32.0 [facility] Chloride assayOrdered By: Dimitris Drake on 07-27-2024 Chloride [Moles/Vol] 106 mmol/L 98-108 [facility] Eosinophil percentageOrdered By: Audra Drake 07-27-2024 Eosinophils/100 WBC (Bld) 2.4 % 0-5 [facility] Erythrocyte distribution wid th ratioOrdered By: Audra Drake on 07-27-2024 Erythrocyte distribution width (RBC) [Ratio] 14.1 % 11.6-14.6 [facility] Erythrocyte distribution wid th standard deviationOrdered By: Audra Drake on 07-27-2024 Erythrocyte distribution width (RBC) [Ratio] 53.5 fl High 35.1-43.9 [facility] Glomerular filtration rate ( GFR) estimation/1.73 sq m using serum, plasma, or whole bOrdered By: Audra Drake on 07-27-2024 GFR/1.73 sq M.predicted among non-blacks MDRD (S/P/Bld) [Vol rate/Area] 90 mL/min/{1.73_m2} >60 [facility] Hematocrit Auto (Bld) [Volum e fraction]Ordered By: Audra Drake 07-27-2024 Hematocrit (Bld) [Volume fraction] 33.1 % Low 37-47 [facility] Hemoglobin measurementOrdere d By: Audra Drake 07-27-2024 Hemoglobin (Bld) [Mass/Vol] 11.0 g/dL Low 12.0-15. 0 [facility] Immature granulocytes/100 WB C Auto (Bld)Ordered By: Audra Drake 07-27-2024 Immature granulocytes/100 WBC (Bld) 0.500 % 0.0-0.9 [facility] MCV (mean corpuscular volume ) determinationOrdered By: Audra Drake 07-27-2024 MCV (RBC) [Entitic vol] 103.4 fL High 81-99 [facility] Mean corpuscular hemoglobin (MCH) determinationOrdered By: Audra Drake 07-27-2024 MCH (RBC) [Entitic mass] 34.4 pg High 27.0-32.0 [facility] Monocyte percentageOrdered B y: Audra Drake on 07-27-2024 Monocytes/100 WBC (Bld) 10.4 % High 0-10 [facility] Neutrophil percentageOrdered By: Audra Drake on 07-27-2024 Neutrophils/100 WBC (Bld) 59.2 % 47-70 [facility] Platelet countOrdered By: Dimitris Drake on 07-27-2024 Platelets (Bld) [#/Vol] 282 10*3/uL 150-450 [facility] Potassium measurement (mass/ volume)Ordered By: Audra Drake on 07-27-2024 Potassium (Unsp spec) [Mass/Vol] 4.3 mmol/L 3.3-5.1 [facility] RBC Auto (Bld) [#/Vol]Ordere d By: Audra Drake on 07-27-2024 RBC (Bld) [#/Vol] 3.20 10*6/uL Low 4.2-5.4 [facility] Serum creatinine measurement (mass/volume)Ordered By: Audra Drake on 07-27-2024 Creatinine [Mass/Vol] 0.65 mg/dL Low 0.70-1.20 [facility] Serum glucose measurement (m ass/volume)Ordered By: Audra Drake on 07-27-2024 Glucose [Mass/Vol] 90 mg/dL 70-99 [facility] Serum or plasma calcium gianluca urement (mass/volume)Ordered By: Audra Drake on 07-27-2024 Calcium [Mass/Vol] 8.9 mg/dL 7.6-11.0 [facility] Serum or plasma urea nitroge n measurement (mass/volume)Ordered By: Audra Drake on 07-27-2024 Urea nitrogen [Mass/Vol] 12 mg/dL 4-19 [facility] Sodium levelOrdered By: Cony Drake on 07-27-2024 Sodium [Moles/Vol] 140 mmol/L 133-145 [facility] White blood cell (WBC) count Ordered By: Audra Drake on 07-27-2024 WBC (Bld) [#/Vol] 5.9 10*3/uL 4.4-11.0 [facility] 07-22-2024 [facility] Telephone (ENDOMN) LIZETTE DAVIES ([id number]) 1945 F Date Time Provider Department 07/22/24 [...] mouth once daily. - COMPOUNDED PRESCRIPTION Viki IM-Sense defense 17 drops daily and working up to 60 drops daily (in divided doses). Serving size 30 drops. 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 Normal [facility] 1,25-dihydroxyvitamin D3 [Ma ss/Vol]on 07-21-2024 VIT D1,25 DIHYDROXY 34.0 pg/mL Normal 19.9-79.3 [facility] Comment on above: Order Comment: Speci men Type: BLOOD SPECIMENOrdering Facility: [facility] Address: [address] [place] [address] Performed By: #### 1 989-3, 1649-3 ####[facility] [id number] [address] [facility] 25(OH)D3 SerPl-ncon 2024 25-hydroxyvitamin D3 [Mass/Vol] 65.9 ng/mL Normal 31.0-80.0 [facility] Comment on above: Order Comment: Speci willis Type: BLOOD SPECIMENOrdering Facility: [facility] Address: [address] [place] [address] Result Comment: Clas sification of 25 [place] Vitamin D status: Deficiency/Insufficiency: < or = 30 ng/ml. Sufficiency/Optimal Levels: 31-80 ng/mL Toxicity: > 100 ng/mL. Test performed by chemiluminescent immunoassay. Performed By: #### 1 989-3, 9-3 ####[facility] [id number] [address] OF [place] [facility] 07-21-2024 CNOV Office Visit (ENDOMN ) LIZETTE DAVIES ([id number]) 1945 F Date Time Provider Department 07/21/24 3:00 PM AJAY GRANT ENDOMN During your visit today, we recorded the following information about you: Pulse Blood pressure Weight Height 98/minute 109/75 68 kg 1.473 m Bebo Martinez MA 07/21/2024 2:47 PM Signed Thank you for choosing the [facility] Department of Endocrinology, Diabetes and Metabolism. Did you know that you need to call 48 hours in advance of your scheduled visit, if you are unable to make your appointment? [facility] [place] thanks you for your commitment, because patients not showing to their appointment results in a lost opportunity for patients to receive world class health care at the [facility]. To Cancel an appointment, please choose one of the following: - Call the Appointment Call Center at [phone] - From [employer], Go to Appointments - Cancel Appts If cancelling, consider your need to reschedule to prevent further delays in your care. To Schedule an appointment, please choose one of the following: - Call the Appointment Call Center at [phone] - From [employer], Go to Appointments - Request an Appt [...] not taking: Reported on 07/21/2024) COMPOUNDED PRESCRIPTION ISVSfosterTicTacTi 17 drops daily and working up to 60 drops daily (in divided doses). Serving size 30 drops. 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 Dx: Bilat sprained ankles, gait instability. acetaminophen (TYLENOL EXTRA STRENGTH) 500 mg tablet Take 1 tablet by mouth every 6 hours as needed for Pain. Magnesium 250 mg tab Take 1,000 mg by mouth. (Patient not taking: Reported on 07/21/2024) MULTIVITAMIN TAB Take one(1) tablet daily. (Patient not taking: Reported on 07/21/2024) No current fa (more content not included)... Normal [facility] CNOV Office Visit (REMS31 ) LIZETTE DAVIES ([id number]) 1945 F Date Time Provider Department 07/21/24 [...] fusion/decompression Chronic back pain but right before fell with worsening LBP. With eventual went [...] transitional care- ECF - PT stopped at [facility]. Can walk some with walker- about 30 [...] (degenerative disc disease), cervical MRI [facility] 11, 2014 ([facility]) DDD (degenerative disc disease), lumbosacral [...] EGD ESOPHAGOGASTRODUODENO SCOPY TRANSORAL DIAGNOSTIC 02/16/15 EGD [facility] inpt ESOPHAGOGASTRODUODENO SCOPY TRANSORAL DIAGNOSTIC 05/11/15 EGD EXTRACTION, ERUPTED TOOTH OR EXPOSED ROOT (ELEVATION AND/OR FORCEPS REMOVAL) 1970s Wi (more content not included)... Normal [facility] Comprehensive metabolic 2000 panelon 07-21-2024 Albumin [Mass/Vol] 3.9 g/dL Normal 3.9-4.9 [facility] Comment on above: Order Comment: Speci men Type: BLOOD SPECIMENOrdering Facility: [facility] Address: [address] [place] [address] Performed By: #### 2 731-8, 48401-1, 6-3, 2776-1 ####[facility]CLIA [id number] [place] [address] [place] ALP [Catalytic activity/Vol] 108 U/L Normal 34-123 [facility] Comment on above: Order Comment: Speci men Type: BLOOD SPECIMENOrdering Facility: [facility] Address: [address] [place] [address] Performed By: #### 2 731-8, 63248-5, 3016-3, 2777-1 ####[facility] LABCLIA [id number] [address] [address] [place] ALT [Catalytic activity/Vol] 13 U/L Normal 7-38 [facility] Comment on above: Order Comment: Speci men Type: BLOOD SPECIMENOrdering Facility: [facility] Address: [address] [place] [address] Performed By: #### 2 731-8, 04211-9, 3015-3, 2776- ####[facility] LABIA [id number] [address] [address] [place] Anion gap [Moles/Vol] 14 mmol/L Normal 8-15 [facility] Comment on above: Order Comment: Speci men Type: BLOOD SPECIMENOrdering Facility: [facility] Address: [address] [place], [place] [address] Performed By: #### 2 731-8, 82200-8, 3015-3, 2776- ####[facility] LABIA [id number] [address] [address] [place] AST [Catalytic activity/Vol] 19 U/L Normal 13-35 [facility] Comment on above: Order Comment: Speci men Type: BLOOD SPECIMENOrdering Facility: [facility] Address: [address] [place] [address] Performed By: #### 2 731-8, 78489-6, 3015-3, 2776- ####[facility] LABIA [id number] [address] [address] [place] Bilirubin [Mass/Vol] 0.3 mg/dL Normal 0.2-1.3 [facility] Comment on above: Order Comment: Speci men Type: BLOOD SPECIMENOrdering Facility: [facility] Address: [address] [place] [address] Performed By: #### 2 731-8, 85732-9, 3015-3, 277-1 ####[facility] LABCLIA [id number] [facility] [address] [address] [place] Calcium [Mass/Vol] 9.6 mg/dL Normal 8.5-10.2 [facility] Comment on above: Order Comment: Speci men Type: BLOOD SPECIMENOrdering Facility: [facility] Address: [address] [place], [place] [address] Performed By: #### 2 731-8, 58383-3, 3015-3, 2776- ####[facility] LABCLIA [id number] [address] [address] [place] Chloride [Moles/Vol] 100 mmol/L Normal 98-107 [facility] Comment on above: Order Comment: Speci men Type: BLOOD SPECIMENOrdering Facility: [facility] Address: [address] [place], [place] [address] Performed By: #### 2 731-8, 66293-1, 3015-3, 2776-03 ####[facility] LABIA [id number] [address] [address] [place] CO2 [Moles/Vol] 25 mmol/L Normal 22-30 [facility] Comment on above: Order Comment: Speci men Type: BLOOD SPECIMENOrdering Facility: [facility] Address: [address] [place] [address] Performed By: #### 2 731-8, 25344-9, 3015-3, 2776-03 ####[facility] LABIA [id number] [address] [address] [place] Creatinine [Mass/Vol] 0.79 mg/dL Normal 0.58-0.96 [facility] Comment on above: Order Comment: Speci men Type: BLOOD SPECIMENOrdering Facility: [facility] Address: [address] [place] [address] Performed By: #### 2 731-8, 13735-9, 3015-3, 2776-03 ####[facility] LABCLIA [id number] [place] [address] [place] Creatinine and Glomerular filtration rate.predicted panel (S/P/Bld) 77 mL/min/1.73m??? Normal >=60 [facility] Comment on above: Order Comment: Iwona pedro Type: BLOOD SPECIMENOrdering Facility: [facility] Address: [address] [place] [address] Result Comment: Brigida mated Glomerular Filtration Rate [...] actual GFR. Performed By: #### 2 731-8, 88015-4, 3015-3, 2776- ####[facility] LABCLIA [id number] [place] [address] [place] Glucose [Mass/Vol] 97 mg/dL Normal 74-99 [facility] Comment on above: Order Comment: Iwona pedro Type: BLOOD SPECIMENOrdering Facility: [facility] Address: [address] [place] [address] Result Comment: The [place] Diabetes Association (ADA) provides guidance for cutoff [...] Standards of Medical Care in Diabetes 2016, [place] [employer]. Diabetes Care. 2016.39(Suppl 1). Performed By: #### 2 731-8, 81434-9, 3015-3, 2776-03 ####[facility] LABCLIA [id number] [facility] [address] [address] [place] Potassium [Moles/Vol] 5.1 mmol/L Normal 3.7-5.1 [facility] Comment on above: Order Comment: Speci men Type: BLOOD SPECIMENOrdering Facility: [facility] Address: [address] [place], [place] [address] Performed By: #### 2 731-8, 01821-5, 3, 2776-03 ####[facility] LABIA [id number] [address] [address] [place] Protein [Mass/Vol] 7.0 g/dL Normal 6.3-8.0 [facility] Comment on above: Order Comment: Speci men Type: BLOOD SPECIMENOrdering Facility: [facility] Address: [address] [place], [place] [address] Performed By: #### 2 731-8, 60326-4, 3, 2776-03 ####[facility] LABIA [id number] [address] [address] [place] Sodium [Moles/Vol] 139 mmol/L Normal 136-144 [facility] Comment on above: Order Comment: Speci men Type: BLOOD SPECIMENOrdering Facility: [facility] Address: [address] [place], [place] [address] Performed By: #### 2 731-8, 56828-0, 3, 2776-03 ####[facility] LABIA [id number] [address] [address] [place] Urea nitrogen [Mass/Vol] 14 mg/dL Normal 7-21 [facility] Comment on above: Order Comment: Speci men Type: BLOOD SPECIMENOrdering Facility: [facility] Address: [address] [place], [place] [address] Performed By: #### 2 731-8, 63848-5, 3015-3, 2776- ####[facility] LABIA [id number] [address] [place] [address] [place] PTH-Intact SerP-ncon - Parathyrin.intact [Mass/Vol] 20 pg/mL Normal 15-65 [facility] Comment on above: Order Comment: Speci men Type: BLOOD SPECIMENOrdering Facility: [facility] Address: [address] [place] [address] Performed By: #### 2 731-8, 38077-4, 3015-3, 277-1 ####[facility] LABIA [id number] [address], [facility] [place] Phosphate SerPl-ncon 07-21 Phosphate [Mass/Vol] 3.9 mg/dL Normal 2.7-4.8 [facility] Comment on above: Order Comment: Speci men Type: BLOOD SPECIMENOrdering Facility: [facility] Address: [address] [place] [address] Performed By: #### 2 731-8, 89704-0, 6-3, 277-1 ####[facility] [id number] [place] [id number] [place] TSH SerPl-aCncon 07-21-2024 TSH Qn 0.762 m[IU]/L Normal 0.270-4.200 [facility] Comment on above: Order Comment: Speci men Type: BLOOD SPECIMENOrdering Facility: [facility] Address: [address] [place], [place] [address] Performed By: #### 2 731-8, 64283-4, 3015-3, 2777-1 ####[facility] LABIA [id number] [address] [place] [address] [place] Absolute lymphocyte countOrd ered By: Nikia Henderson on 07-20-2024 Lymphocytes Auto (Unsp spec) [#/Vol] 1.71 10*3/uL 0.83-4.51 [facility] Anion gap in Serum or Plasma Ordered By: Nikia Henderson on 07-20-2024 Anion gap [Moles/Vol] 10 mmol/L 5-15 [facility] Automated lymphocyte count a s percentage of total leukocytesOrdered By: Nikia Henderson on 07-20-2024 Lymphocytes/100 WBC Auto (Unsp spec) 28.0 % 19-41 [facility] BUN/creatinine ratioOrdered By: Nikia Henderson on 07-20-2024 Urea nitrogen/Creatinine [Mass ratio] 16.1 mg/mg 10-20 [facility] Basophil percentageOrdered B y: Nikia Henderson on 07-20-2024 Basophils/100 WBC (Bld) 0.7 % 0-1 [facility] Carbon dioxide, total [Moles /volume] in Central venous bloodOrdered By: Nikia Henderson on 07-20-2024 CO2 [Moles/Vol] 23.8 mmol/L 21.0-32.0 [facility] Chloride assayOrdered By: Cecilia Henderson on 07-20-2024 Chloride [Moles/Vol] 104 mmol/L 98-108 [facility] Eosinophil percentageOrdered By: laura Henderson on 07-20-2024 Eosinophils/100 WBC (Bld) 2.1 % 0-5 [facility] Erythrocyte distribution wid th ratioOrdered By: Nikia Henderson on 07-20-2024 Erythrocyte distribution width (RBC) [Ratio] 13.7 % 11.6-14.6 [facility] Erythrocyte distribution wid th standard deviationOrdered By: guanakorileyheladio Henderson on 07-20-2024 Erythrocyte distribution width (RBC) [Ratio] 50.0 fl High 35.1-43.9 [facility] Glomerular filtration rate ( GFR) estimation/1.73 sq m using serum, plasma, or whole bOrdered By: Nikia Henderson on 07-20-2024 GFR/1.73 sq M.predicted among non-blacks MDRD (S/P/Bld) [Vol rate/Area] 92 mL/min/{1.73_m2} >60 [facility] Hematocrit Auto (Bld) [Volum e fraction]Ordered By: Catalinafedeheladio Jainjanicevioletta on 07-20-2024 Hematocrit (Bld) [Volume fraction] 33.5 % Low 37-47 [facility] Hemoglobin measurementOrdere d By: Nikia Cristobaljanicevioletta on 07-20-2024 Hemoglobin (Bld) [Mass/Vol] 11.3 g/dL Low 12.0-15. 0 [facility] Immature granulocytes/100 WB C Auto (Bld)Ordered By: Nikia Jainjanicevioletta on 07-20-2024 Immature granulocytes/100 WBC (Bld) 0.500 % 0.0-0.9 [facility] MCV (mean corpuscular volume ) determinationOrdered By: Nikia Jainjanicevioletta on 07-20-2024 MCV (RBC) [Entitic vol] 100.0 fL High 81-99 [facility] Mean corpuscular hemoglobin (MCH) determinationOrdered By: Nikia Jainjanicevioletta on 07-20-2024 MCH (RBC) [Entitic mass] 33.7 pg High 27.0-32.0 [facility] Monocyte percentageOrdered B y: Nikia Cristobalromi on 07-20-2024 Monocytes/100 WBC (Bld) 10.2 % High 0-10 [facility] Neutrophil percentageOrdered By: Ceciliaguanakoterra Cristobaljanicevioletta on 07-20-2024 Neutrophils/100 WBC (Bld) 58.5 % 47-70 [facility] Platelet countOrdered By: Cecilia laura Cristobaljanicevioletta on 07-20-2024 Platelets (Bld) [#/Vol] 276 10*3/uL 150-450 [facility] Potassium measurement (mass/ volume)Ordered By: Ceciliaguanakofedeheladio Jainjanicevioletta on 07-20-2024 Potassium (Unsp spec) [Mass/Vol] 4.1 mmol/L 3.3-5.1 [facility] RBC Auto (Bld) [#/Vol]Ordere d By: Ceciliaguanakoterra Cristobaljanicevioletta on 07-20-2024 RBC (Bld) [#/Vol] 3.35 10*6/uL Low 4.2-5.4 [facility] Serum creatinine measurement (mass/volume)Ordered By: Nikia Henderson on 07-20-2024 Creatinine [Mass/Vol] 0.59 mg/dL Low 0.70-1.20 [facility] Serum glucose measurement (m ass/volume)Ordered By: Nikia Henderson on 07-20-2024 Glucose [Mass/Vol] 85 mg/dL 70-99 [facility] Serum or plasma calcium gianluca urement (mass/volume)Ordered By: Nikia Henderson on 07-20-2024 Calcium [Mass/Vol] 9.1 mg/dL 7.6-11.0 [facility] Serum or plasma urea nitroge n measurement (mass/volume)Ordered By: Nikia Henderson on 07-20-2024 Urea nitrogen [Mass/Vol] 9 mg/dL 4-19 [facility] Sodium levelOrdered By: Catalina connerling Beatriz on 07-20-2024 Sodium [Moles/Vol] 138 mmol/L 133-145 [facility] White blood cell (WBC) count Ordered By: Nikia Henderson on 07-20-2024 WBC (Bld) [#/Vol] 6.1 10*3/uL 4.4-11.0 [facility] Absolute lymphocyte countOrd ered By: Nikia Henderson on 07-13-2024 Lymphocytes Auto (Unsp spec) [#/Vol] 1.48 10*3/uL 0.83-4.51 [facility] Absolute neutrophil countOrd ered By: Nikia Henderson on 07-13-2024 Absolute neutrophil count 3.7 X10^3/uL 2.0-7.7 [facility] Anion gap [Moles/Vol]Ordered By: Nikia Henderson on 07-13-2024 Anion gap in Serum or Plasma 9 - [facility] Anion gap in Serum or Plasma Ordered By: Nikia Henderson on 07-13-2024 Anion gap [Moles/Vol] 9 mmol/L - [facility] Automated lymphocyte count a s percentage of total leukocytesOrdered By: Nikia Henderson on 07-13-2024 Lymphocytes/100 WBC Auto (Unsp spec) 24.8 % 19-41 [facility] BUN/creatinine ratioOrdered By: Nikia eHnderson on 07-13-2024 Urea nitrogen/Creatinine [Mass ratio] 19.7 mg/mg 10- [facility] BUN/creatinine ratio 19.7 RATIO 10- [facility] Basophil percentageOrdered B y: Nikia Henderson on 07-13-2024 Basophils/100 WBC (Bld) 0.8 % 0-1 [facility] Basophil percentage 0.8 % 0-1 [facility] Calcium [Mass/Vol]Ordered By : Nikia Henderson on 07-13-2024 Serum or plasma calcium measurement (mass/volume) 8.8 mg/dL 7.6-11.0 [facility] Carbon dioxide, total [Moles /volume] in Central venous bloodOrdered By: Nikia Henderson on 07-13-2024 CO2 [Moles/Vol] 24.1 mmol/L 21.0-32.0 [facility] Carbon dioxide, total [Moles/volume] in Central venous blood 24.1 mmol/L 21.0-32.0 [facility] Chloride assayOrdered By: Cecilia Henderson on 07-13-2024 Chloride [Moles/Vol] 108 mmol/L 98-108 [facility] Chloride assay 108 mmol/L 98-108 [facility] Creatinine [Mass/Vol]Ordered By: Nikia Henderson on 07-13-2024 Serum creatinine measurement (mass/volume) 0.59 mg/dL Low 0.70-1.20 [facility] Eosinophil percentageOrdered By: Nikia Henderson on 07-13-2024 Eosinophils/100 WBC (Bld) 2.9 % 0-5 [facility] Eosinophil percentage 2.9 % 0-5 [facility] Erythrocyte distribution wid th (RBC) [Ratio]Ordered By: Nikia Henderson on 07-13-2024 Erythrocyte distribution width ratio 14.2 % 11.6-14.6 [facility] Erythrocyte distribution width standard deviation 52.8 fl High 35.1-43.9 [facility] Erythrocyte distribution wid th ratioOrdered By: Nikia Henderson on 07-13-2024 Erythrocyte distribution width (RBC) [Ratio] 14.2 % 11.6-14.6 [facility] Erythrocyte distribution wid th standard deviationOrdered By: Nikia Henderson on 07-13-2024 Erythrocyte distribution width (RBC) [Ratio] 52.8 fl High 35.1-43.9 [facility] GFR/1.73 sq M.predicted viji g non-blacks MDRD (S/P/Bld) [Vol rate/Area]Ordered By: Nikia Henderson on 07-13-2024 Glomerular filtration rate (GFR) estimation/1.73 sq m using serum, plasma, or whole b 92 >60 [facility] Glomerular filtration rate ( GFR) estimation/1.73 sq m using serum, plasma, or whole bOrdered By: iNkia Henderson on 07-13-2024 GFR/1.73 sq M.predicted among non-blacks MDRD (S/P/Bld) [Vol rate/Area] 92 mL/min/{1.73_m2} >60 [facility] Glucose [Mass/Vol]Ordered By : Nikia Henderson on 07-13-2024 Serum glucose measurement (mass/volume) 84 mg/dL 70-99 [facility] Hematocrit Auto (Bld) [Volum e fraction]Ordered By: Nikia Henderson on 07-13-2024 Hematocrit (Bld) [Volume fraction] 32.8 % Low 37-47 [facility] Automated blood hematocrit (percentage) 32.8 % Low 37-47 [facility] Hemoglobin measurementOrdere d By: Nikia Henderson on 07-13-2024 Hemoglobin (Bld) [Mass/Vol] 10.8 g/dL Low 12.0-15. 0 [facility] Hemoglobin measurement 10.8 g/dL Low 12.0-15.0 [facility] Immature granulocytes/100 WB C Auto (Bld)Ordered By: Nikia Henderson on 07-13-2024 Immature granulocytes/100 WBC (Bld) 0.700 % 0.0-0.9 [facility] Automated immature granulocyte percentage 0.700 % 0.0-0.9 [facility] Lymphocytes Auto (Unsp spec) [#/Vol]Ordered By: Nikia Henderson on 07-13-2024 Absolute lymphocyte count 1.48 X10^3/uL 0.83-4. 51 [facility] Lymphocytes/100 WBC Auto (Un sp spec)Ordered By: Nikia Henderson on 07-13-2024 Automated lymphocyte count as percentage of total leukocytes 24.8 % 19-41 [facility] MCV (RBC) [Entitic vol]Order ed By: Nikia Henderson on 07-13-2024 MCV (mean corpuscular volume) determination 102.2 fL High 81-99 [facility] MCV (mean corpuscular volume ) determinationOrdered By: Nikia Henderson on 07-13-2024 MCV (RBC) [Entitic vol] 102.2 fL High 81-99 [facility] Mean corpuscular hemoglobin (MCH) determinationOrdered By: Nikia Henderson on 07-13-2024 MCH (RBC) [Entitic mass] 33.6 pg High 27.0-32.0 [facility] Mean corpuscular hemoglobin (MCH) determination 33.6 pg High 27.0-32.0 [facility] Mean corpuscular hemoglobin concentration (MCHC) determinationOrdered By: Nikia Henderson on 07-13-2024 Mean corpuscular hemoglobin concentration (MCHC) determination 32.9 g/dL 32-36 [facility] Mean platelet volume determi nationOrdered By: Nikia Henderson on 07-13-2024 Mean platelet volume determination 9.5 fl 6.2-12.0 [facility] Monocyte percentageOrdered B y: Nikia Henderson on 07-13-2024 Monocytes/100 WBC (Bld) 9.1 % 0-10 [facility] Monocyte percentage 9.1 % 0-10 [facility] Neutrophil percentageOrdered By: Nikia Henderson on 07-13-2024 Neutrophils/100 WBC (Bld) 61.7 % 47-70 [facility] Neutrophil percentage 61.7 % 47-70 [facility] Nucleated red blood cell per centageOrdered By: Nikia Henderson on 07-13-2024 Nucleated red blood cell percentage 0 % 0-5 [facility] Platelet countOrdered By: Cecilia laura Henderson on 07-13-2024 Platelets (Bld) [#/Vol] 267 10*3/uL 150-450 [facility] Platelet count 267 K/mm3 150-450 [facility] Potassium (Unsp spec) [Mass/ Vol]Ordered By: Nikia Jainjanicevioletta on 07-13-2024 Potassium measurement (mass/volume) 4.1 mmol/L 3.3-5.1 [facility] Potassium measurement (mass/ volume)Ordered By: Onelheladio Cristobalromi on 07-13-2024 Potassium (Unsp spec) [Mass/Vol] 4.1 mmol/L 3.3-5.1 [facility] RBC Auto (Bld) [#/Vol]Ordere d By: Nikia Cristobalromi on 07-13-2024 RBC (Bld) [#/Vol] 3.21 10*6/uL Low 4.2-5.4 [facility] Automated blood erythrocyte count 3.21 M/mm3 Low 4.2-5.4 [facility] Serum creatinine measurement (mass/volume)Ordered By: Ceciliaguanakoterra Cristobalromi on 07-13-2024 Creatinine [Mass/Vol] 0.59 mg/dL Low 0.70-1.20 [facility] Serum glucose measurement (m ass/volume)Ordered By: Nikia Jainjanicevioletta on 07-13-2024 Glucose [Mass/Vol] 84 mg/dL 70-99 [facility] Serum or plasma calcium gianluca urement (mass/volume)Ordered By: Onelheladio Cristobaljanicevioletta on 07-13-2024 Calcium [Mass/Vol] 8.8 mg/dL 7.6-11.0 [facility] Serum or plasma urea nitroge n measurement (mass/volume)Ordered By: Nikia Jainjanicevioletta on 07-13-2024 Urea nitrogen [Mass/Vol] 12 mg/dL 4-19 [facility] Sodium levelOrdered By: Ceciliaguanako terra Cristobaljanicevioletta on 07-13-2024 Sodium [Moles/Vol] 141 mmol/L 133-145 [facility] Sodium level 141 mmol/L 133-145 [facility] Urea nitrogen [Mass/Vol]Orde red By: Nikia Henderson on 07-13-2024 Serum or plasma urea nitrogen measurement (mass/volume) 12 mg/dL - [facility] White blood cell (WBC) count Ordered By: Nikia Henderson on 07-13-2024 WBC (Bld) [#/Vol] 6.0 10*3/uL 4.4-11.0 [facility] White blood cell (WBC) count 6.0 K/mm3 4.4-11.0 [facility] CNPNon 07-08-2024 CNPN Telephone ([id number]) KEKELIZETTE Teri ([id number]) 1945 F Date Time Provider Department 07/08/24 JOVANNI MATTHEW REMS31 During your visit today, we recorded the following information about you: Andressa Arias 07/08/2024 1:55 PM Signed New Patient appointment on 07/21/24 Received outside hospital, [facility] Radiology reports for x-rays and MRIs for [...] mouth once daily. - COMPOUNDED PRESCRIPTION Viki Haolianluo 17 drops daily and working up to 60 drops daily (in divided doses). Serving size 30 drops. 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 Tibialis [...] Status:Closed by JOVANNI MATTHEW on 07/26/24 Normal [facility] Absolute lymphocyte countOrd ered By: Nikia Henderson on 07-06-2024 Lymphocytes Auto (Unsp spec) [#/Vol] 1.68 10*3/uL 0.83-4.51 [facility] Absolute neutrophil countOrd ered By: Nikia Henderson on 07-06-2024 Neutrophils (Bld) [#/Vol] 4.0 10*3/uL 2.0-7.7 [facility] Absolute neutrophil count 4.0 X10^3/uL 2.0-7.7 [facility] Anion gap [Moles/Vol]Ordered By: Nikia Henderson on 07-06-2024 Anion gap in Serum or Plasma 10 5-15 [facility] Anion gap in Serum or Plasma Ordered By: guanakorileyheladio Henderson on 07-06-2024 Anion gap [Moles/Vol] 10 mmol/L 5-15 [facility] Automated lymphocyte count a s percentage of total leukocytesOrdered By: Nikia Henderson on 07-06-2024 Lymphocytes/100 WBC Auto (Unsp spec) 25.1 % 19-41 [facility] BUN/creatinine ratioOrdered By: Nikia Henderson on 07-06-2024 Urea nitrogen/Creatinine [Mass ratio] 23.7 mg/mg High 10-20 [facility] BUN/creatinine ratio 23.7 RATIO High 10-20 [facility] Basophil percentageOrdered B y: Nikia Henderson on 07-06-2024 Basophils/100 WBC (Bld) 0.9 % 0-1 [facility] Basophil percentage 0.9 % 0-1 [facility] Calcium [Mass/Vol]Ordered By : Nikia Henderson on 07-06-2024 Serum or plasma calcium measurement (mass/volume) 8.8 mg/dL 7.6-11.0 [facility] Carbon dioxide, total [Moles /volume] in Central venous bloodOrdered By: Nikia Henderson on 07-06-2024 CO2 [Moles/Vol] 22.4 mmol/L 21.0-32.0 [facility] Carbon dioxide, total [Moles/volume] in Central venous blood 22.4 mmol/L 21.0-32.0 [facility] Chloride assayOrdered By: Cecilia Henderson on 07-06-2024 Chloride [Moles/Vol] 108 mmol/L 98-108 [facility] Chloride assay 108 mmol/L 98-108 [facility] Creatinine [Mass/Vol]Ordered By: Nikia Henderson on 07-06-2024 Serum creatinine measurement (mass/volume) 0.76 mg/dL 0.70-1.20 [facility] Eosinophil percentageOrdered By: Nikia Henderson on 07-06-2024 Eosinophils/100 WBC (Bld) 2.5 % 0-5 [facility] Eosinophil percentage 2.5 % 0-5 [facility] Erythrocyte distribution wid th (RBC) [Ratio]Ordered By: Nikia Henderson on 07-06-2024 Erythrocyte distribution width ratio 14.3 % 11.6-14.6 [facility] Erythrocyte distribution width (RBC) [Entitic vol] 53.8 fL High 35.1-43.9 [facility] Erythrocyte distribution width standard deviation 53.8 fl High 35.1-43.9 [facility] Erythrocyte distribution wid th ratioOrdered By: Nikia Henderson on 07-06-2024 Erythrocyte distribution width (RBC) [Ratio] 14.3 % 11.6-14.6 [facility] Erythrocyte distribution wid th standard deviationOrdered By: Nikia Henderson on 07-06-2024 Erythrocyte distribution width (RBC) [Ratio] 53.8 fl High 35.1-43.9 [facility] GFR/1.73 sq M.predicted viji g non-blacks MDRD (S/P/Bld) [Vol rate/Area]Ordered By: Nikia Henderson on 07-06-2024 Estimated GFR (MDRD) Non-Af Amer 80 >60 [facility] Comment on above: mL/min/1.73m2 CKD-EP I Creatinine Equation (2020) Glomerular filtration rate (GFR) estimation/1.73 sq m using serum, plasma, or whole b 80 >60 [facility] Glomerular filtration rate ( GFR) estimation/1.73 sq m using serum, plasma, or whole bOrdered By: Nikia Henderson on 07-06-2024 GFR/1.73 sq M.predicted among non-blacks MDRD (S/P/Bld) [Vol rate/Area] 80 mL/min/{1.73_m2} >60 [facility] Glucose [Mass/Vol]Ordered By : Nikia Henderson on 07-06-2024 Serum glucose measurement (mass/volume) 90 mg/dL 70-99 [facility] Hematocrit Auto (Bld) [Volum e fraction]Ordered By: Nikia Henderson on 07-06-2024 Hematocrit (Bld) [Volume fraction] 34.4 % Low 37-47 [facility] Automated blood hematocrit (percentage) 34.4 % Low 37-47 [facility] Hemoglobin measurementOrdere d By: Nikia Henderson on 07-06-2024 Hemoglobin (Bld) [Mass/Vol] 11.1 g/dL Low 12.0-15. 0 [facility] Hemoglobin measurement 11.1 g/dL Low 12.0-15.0 [facility] Immature granulocytes/100 WB C Auto (Bld)Ordered By: Nikia Henderson on 07-06-2024 Immature granulocytes/100 WBC (Bld) 1.300 % High 0.0-0.9 [facility] Comment on above: IG% - Immature Granu locytes (promyelocytes, myelocytes and metamyelocytes) > 1% indicates that a LEFT SHIFT is Present. Automated immature granulocyte percentage 1.300 % High 0.0-0.9 [facility] Lymphocytes Auto (Unsp spec) [#/Vol]Ordered By: Nikia Henderson on 07-06-2024 Lymphocytes (Bld) [#/Vol] 1.68 10*3/uL 0.83-4.5 1 [facility] Absolute lymphocyte count 1.68 X10^3/uL 0.83-4. 51 [facility] Lymphocytes/100 WBC Auto (Un sp spec)Ordered By: Nikia Henderson on 07-06-2024 Lymphocytes/100 WBC (Bld) 25.1 % - [facility] Automated lymphocyte count as percentage of total leukocytes 25.1 % - [facility] MCV (RBC) [Entitic vol]Order ed By: Nikia Henderson on 07-06-2024 MCV (mean corpuscular volume) determination 103.6 fL High 81-99 [facility] MCV (mean corpuscular volume ) determinationOrdered By: Nikia Henderson on 07-06-2024 MCV (RBC) [Entitic vol] 103.6 fL High 81-99 [facility] Mean corpuscular hemoglobin (MCH) determinationOrdered By: Nikia Henderson on 07-06-2024 MCH (RBC) [Entitic mass] 33.4 pg High 27.0-32.0 [facility] Mean corpuscular hemoglobin (MCH) determination 33.4 pg High 27.0-32.0 [facility] Mean corpuscular hemoglobin concentration (MCHC) determinationOrdered By: Nikia Henderson on 07-06-2024 MCHC (RBC) [Mass/Vol] 32.3 g/dL 32-36 [facility] Mean corpuscular hemoglobin concentration (MCHC) determination 32.3 g/dL -36 [facility] Mean platelet volume determi nationOrdered By: Nikia Henderson on 07-06-2024 Platelet mean volume (Bld) [Entitic vol] 9.4 fL 6.2-12.0 [facility] Mean platelet volume determination 9.4 fl 6.2-12.0 [facility] Monocyte percentageOrdered B y: Nikia Henderson on 07-06-2024 Monocytes/100 WBC (Bld) 10.8 % High 0-10 [facility] Monocyte percentage 10.8 % High 0-10 [facility] Neutrophil percentageOrdered By: Nikia Henderson on 07-06-2024 Neutrophils/100 WBC (Bld) 59.4 % 47-70 [facility] Neutrophil percentage 59.4 % 47-70 [facility] Nucleated red blood cell per centageOrdered By: Nikia Henderson on 07-06-2024 Nucleated RBC/100 WBC (Bld) [Ratio] 0 % 0-5 [facility] Nucleated red blood cell percentage 0 % 0-5 [facility] Platelet countOrdered By: Cecilia Henderson on 07-06-2024 Platelets (Bld) [#/Vol] 299 10*3/uL 150-450 [facility] Platelet count 299 K/mm3 150-450 [facility] Potassium (Unsp spec) [Mass/ Vol]Ordered By: Nikia Henderson on 07-06-2024 Potassium [Moles/Vol] 4.3 mmol/L 3.3-5.1 [facility] Potassium measurement (mass/volume) 4.3 mmol/L 3.3-5.1 [facility] Potassium measurement (mass/ volume)Ordered By: Nikia Henderson on 07-06-2024 Potassium (Unsp spec) [Mass/Vol] 4.3 mmol/L 3.3-5.1 [facility] RBC Auto (Bld) [#/Vol]Ordere d By: Nikia Henderson on 07-06-2024 RBC (Bld) [#/Vol] 3.32 10*6/uL Low 4.2-5.4 [facility] Automated blood erythrocyte count 3.32 M/mm3 Low 4.2-5.4 [facility] Serum creatinine measurement (mass/volume)Ordered By: Nikia Henderson on 07-06-2024 Creatinine [Mass/Vol] 0.76 mg/dL 0.70-1.20 [facility] Serum glucose measurement (m ass/volume)Ordered By: Nikia Henderson on 07-06-2024 Glucose [Mass/Vol] 90 mg/dL 70-99 [facility] Serum or plasma calcium gianluca urement (mass/volume)Ordered By: Nikia Henderson on 07-06-2024 Calcium [Mass/Vol] 8.8 mg/dL 7.6-11.0 [facility] Serum or plasma urea nitroge n measurement (mass/volume)Ordered By: Nikia Henderson on 07-06-2024 Urea nitrogen [Mass/Vol] 18 mg/dL - [facility] Sodium levelOrdered By: Catalina connerling Beatriz on 07-06-2024 Sodium [Moles/Vol] 140 mmol/L 133-145 [facility] Sodium level 140 mmol/L 133-145 [facility] Urea nitrogen [Mass/Vol]Orde red By: Nikia Henderson on 07-06-2024 Serum or plasma urea nitrogen measurement (mass/volume) 18 mg/dL - [facility] White blood cell (WBC) count Ordered By: Nikia Henderson on 07-06-2024 WBC (Bld) [#/Vol] 6.7 10*3/uL 4.4-11.0 [facility] White blood cell (WBC) count 6.7 K/mm3 4.4-11.0 [facility] Absolute lymphocyte countOrd ered By: Audra Drake on 06-29-2024 Lymphocytes Auto (Unsp spec) [#/Vol] 1.28 10*3/uL 0.83-4.51 [facility] Absolute neutrophil countOrd ered By: Audra Drake on 06-29-2024 Neutrophils (Bld) [#/Vol] 4.0 10*3/uL 2.0-7.7 [facility] Absolute neutrophil count 4.0 X10^3/uL 2.0-7.7 [facility] Anion gap [Moles/Vol]Ordered By: Audra Drake on 06-29-2024 Anion gap in Serum or Plasma 10 5-15 [facility] Anion gap in Serum or Plasma Ordered By: Audra Drake on 06-29-2024 Anion gap [Moles/Vol] 10 mmol/L 5- [facility] Automated lymphocyte count a s percentage of total leukocytesOrdered By: Audra Drake on 06-29-2024 Lymphocytes/100 WBC Auto (Unsp spec) 20.1 % [facility] BUN/creatinine ratioOrdered By: Audra Drake on 06-29-2024 Urea nitrogen/Creatinine [Mass ratio] 18.5 mg/mg 10- [facility] BUN/creatinine ratio 18.5 RATIO - [facility] Basophil percentageOrdered B y: Audra Drake on 06-29-2024 Basophils/100 WBC (Bld) 0.9 % 0-1 [facility] Basophil percentage 0.9 % 0-1 [facility] Calcium [Mass/Vol]Ordered By : Audra Drake on 06-29-2024 Serum or plasma calcium measurement (mass/volume) 9.0 mg/dL 7.6-11.0 [facility] Carbon dioxide, total [Moles /volume] in Central venous bloodOrdered By: Audra Drake on 06-29-2024 CO2 [Moles/Vol] 21.5 mmol/L 21.0-32.0 [facility] Carbon dioxide, total [Moles/volume] in Central venous blood 21.5 mmol/L 21.0-32.0 [facility] Chloride assayOrdered By: Dimitris Drake on 06-29-2024 Chloride [Moles/Vol] 109 mmol/L High 98-108 [facility] Chloride assay 109 mmol/L High 98-108 [facility] Creatinine [Mass/Vol]Ordered By: Audra Drake on 06-29-2024 Serum creatinine measurement (mass/volume) 0.65 mg/dL Low 0.70-1.20 [facility] Eosinophil percentageOrdered By: Audra Drake on 06-29-2024 Eosinophils/100 WBC (Bld) 2.5 % 0-5 [facility] Eosinophil percentage 2.5 % 0-5 [facility] Erythrocyte distribution wid th (RBC) [Ratio]Ordered By: Audra Drake on 06-29-2024 Erythrocyte distribution width ratio 14.0 % 11.6-14.6 [facility] Erythrocyte distribution width (RBC) [Entitic vol] 51.9 fL High 35.1-43.9 [facility] Erythrocyte distribution width standard deviation 51.9 fl High 35.1-43.9 [facility] Erythrocyte distribution wid th ratioOrdered By: Audra Drake on 06-29-2024 Erythrocyte distribution width (RBC) [Ratio] 14.0 % 11.6-14.6 [facility] Erythrocyte distribution wid th standard deviationOrdered By: Audra Drake on 06-29-2024 Erythrocyte distribution width (RBC) [Ratio] 51.9 fl High 35.1-43.9 [facility] GFR/1.73 sq M.predicted viji g non-blacks MDRD (S/P/Bld) [Vol rate/Area]Ordered By: Audra Drake on 06-29-2024 Estimated GFR (MDRD) Non-Af Amer 90 >60 [facility] Comment on above: mL/min/1.73m2 CKD-EP I Creatinine Equation (2020) Glomerular filtration rate (GFR) estimation/1.73 sq m using serum, plasma, or whole b 90 >60 [facility] Glomerular filtration rate ( GFR) estimation/1.73 sq m using serum, plasma, or whole bOrdered By: Audra Drake on 06-29-2024 GFR/1.73 sq M.predicted among non-blacks MDRD (S/P/Bld) [Vol rate/Area] 90 mL/min/{1.73_m2} >60 [facility] Glucose [Mass/Vol]Ordered By : Audra Drake on 06-29-2024 Serum glucose measurement (mass/volume) 84 mg/dL 70-99 [facility] Hematocrit Auto (Bld) [Volum e fraction]Ordered By: Audra Drake on 06-29-2024 Hematocrit (Bld) [Volume fraction] 35.7 % Low 37-47 [facility] Automated blood hematocrit (percentage) 35.7 % Low 37-47 [facility] Hemoglobin measurementOrdere d By: Audra rDake on 06-29-2024 Hemoglobin (Bld) [Mass/Vol] 11.5 g/dL Low 12.0-15. 0 [facility] Hemoglobin measurement 11.5 g/dL Low 12.0-15.0 [facility] Immature granulocytes/100 WB C Auto (Bld)Ordered By: Audra Drake on 06-29-2024 Immature granulocytes/100 WBC (Bld) 1.100 % High 0.0-0.9 [facility] Comment on above: IG% - Immature Granu locytes (promyelocytes, myelocytes and metamyelocytes) > 1% indicates that a LEFT SHIFT is Present. Automated immature granulocyte percentage 1.100 % High 0.0-0.9 [facility] Lymphocytes Auto (Unsp spec) [#/Vol]Ordered By: Audra Drake on 06-29-2024 Lymphocytes (Bld) [#/Vol] 1.28 10*3/uL 0.83-4.5 1 [facility] Absolute lymphocyte count 1.28 X10^3/uL 0.83-4. 51 [facility] Lymphocytes/100 WBC Auto (Un sp spec)Ordered By: Audra Drake on 06-29-2024 Lymphocytes/100 WBC (Bld) 20.1 % [facility] Automated lymphocyte count as percentage of total leukocytes 20.1 % [facility] MCV (RBC) [Entitic vol]Order ed By: Audra Drake on 06-29-2024 MCV (mean corpuscular volume) determination 99.7 fL High 81-99 [facility] MCV (mean corpuscular volume ) determinationOrdered By: Audra Drake on 06-29-2024 MCV (RBC) [Entitic vol] 99.7 fL High 81-99 [facility] Mean corpuscular hemoglobin (MCH) determinationOrdered By: Audra Drake on 06-29-2024 MCH (RBC) [Entitic mass] 32.1 pg High 27.0-32.0 [facility] Mean corpuscular hemoglobin (MCH) determination 32.1 pg High 27.0-32.0 [facility] Mean corpuscular hemoglobin concentration (MCHC) determinationOrdered By: Audra Drake on 06-29-2024 MCHC (RBC) [Mass/Vol] 32.2 g/dL 32-36 [facility] Mean corpuscular hemoglobin concentration (MCHC) determination 32.2 g/dL -36 [facility] Mean platelet volume determi nationOrdered By: Audra Drake on 06-29-2024 Platelet mean volume (Bld) [Entitic vol] 9.5 fL 6.2-12.0 [facility] Mean platelet volume determination 9.5 fl 6.2-12.0 [facility] Monocyte percentageOrdered B y: Audra Drake on 06-29-2024 Monocytes/100 WBC (Bld) 12.3 % High 0-10 [facility] Monocyte percentage 12.3 % High 0-10 [facility] Neutrophil percentageOrdered By: Audra Drake on 06-29-2024 Neutrophils/100 WBC (Bld) 63.1 % 47-70 [facility] Neutrophil percentage 63.1 % 47-70 [facility] Nucleated red blood cell per centageOrdered By: Audra Drake on 06-29-2024 Nucleated RBC/100 WBC (Bld) [Ratio] 0 % 0-5 [facility] Nucleated red blood cell percentage 0 % 0-5 [facility] Platelet countOrdered By: Dimitris Drake on 06-29-2024 Platelets (Bld) [#/Vol] 307 10*3/uL 150-450 [facility] Platelet count 307 K/mm3 150-450 [facility] Potassium (Unsp spec) [Mass/ Vol]Ordered By: Audra Drake on 06-29-2024 Potassium [Moles/Vol] 4.4 mmol/L 3.3-5.1 [facility] Potassium measurement (mass/volume) 4.4 mmol/L 3.3-5.1 [facility] Potassium measurement (mass/ volume)Ordered By: Audra Drake on 06-29-2024 Potassium (Unsp spec) [Mass/Vol] 4.4 mmol/L 3.3-5.1 [facility] RBC Auto (Bld) [#/Vol]Ordere d By: Audra Drake on 06-29-2024 RBC (Bld) [#/Vol] 3.58 10*6/uL Low 4.2-5.4 [facility] Automated blood erythrocyte count 3.58 M/mm3 Low 4.2-5.4 [facility] Serum creatinine measurement (mass/volume)Ordered By: Audra Drake on 06-29-2024 Creatinine [Mass/Vol] 0.65 mg/dL Low 0.70-1.20 [facility] Serum glucose measurement (m ass/volume)Ordered By: Audra Drake on 06-29-2024 Glucose [Mass/Vol] 84 mg/dL 70-99 [facility] Serum or plasma calcium gianluca urement (mass/volume)Ordered By: Audra Drake on 06-29-2024 Calcium [Mass/Vol] 9.0 mg/dL 7.6-11.0 [facility] Serum or plasma urea nitroge n measurement (mass/volume)Ordered By: Audra Drake on 06-29-2024 Urea nitrogen [Mass/Vol] 12 mg/dL - [facility] Sodium levelOrdered By: Cony Drake on 06-29-2024 Sodium [Moles/Vol] 140 mmol/L 133-145 [facility] Sodium level 140 mmol/L 133-145 [facility] Urea nitrogen [Mass/Vol]Orde red By: Audra Drake on 06-29-2024 Serum or plasma urea nitrogen measurement (mass/volume) 12 mg/dL - [facility] White blood cell (WBC) count Ordered By: Audra Drake on 06-29-2024 WBC (Bld) [#/Vol] 6.4 10*3/uL 4.4-11.0 [facility] White blood cell (WBC) count 6.4 K/mm3 4.4-11.0 [facility] Absolute lymphocyte countOrd ered By: Audra Drake on 06-22-2024 Lymphocytes Auto (Unsp spec) [#/Vol] 1.15 10*3/uL 0.83-4.51 [facility] Absolute neutrophil countOrd ered By: Audra Drake on 06-22-2024 Neutrophils (Bld) [#/Vol] 4.9 10*3/uL 2.0-7.7 [facility] Absolute neutrophil count 4.9 X10^3/uL 2.0-7.7 [facility] Anion gap [Moles/Vol]Ordered By: Audra Drake on 06-22-2024 Anion gap in Serum or Plasma 11 5-15 [facility] Anion gap in Serum or Plasma Ordered By: Audra Drake on 06-22-2024 Anion gap [Moles/Vol] 11 mmol/L 5-15 [facility] Automated lymphocyte count a s percentage of total leukocytesOrdered By: Audra Drake on 06-22-2024 Lymphocytes/100 WBC Auto (Unsp spec) 16.2 % Low 19-41 [facility] BUN/creatinine ratioOrdered By: Audra Drake on 06-22-2024 Urea nitrogen/Creatinine [Mass ratio] 18.7 mg/mg 10-20 [facility] BUN/creatinine ratio 18.7 RATIO 10-20 [facility] Basophil percentageOrdered B y: Audra Drake on 06-22-2024 Basophils/100 WBC (Bld) 0.6 % 0-1 [facility] Basophil percentage 0.6 % 0-1 [facility] Calcium [Mass/Vol]Ordered By : Audra Drake on 06-22-2024 Serum or plasma calcium measurement (mass/volume) 8.6 mg/dL 7.6-11.0 [facility] Carbon dioxide, total [Moles /volume] in Central venous bloodOrdered By: Audra Drake on 06-22-2024 CO2 [Moles/Vol] 19.5 mmol/L Low 21.0-32.0 [facility] Carbon dioxide, total [Moles/volume] in Central venous blood 19.5 mmol/L Low 21.0-32.0 [facility] Chloride assayOrdered By: Dimitris Drake on 06-22-2024 Chloride [Moles/Vol] 107 mmol/L 98-108 [facility] Chloride assay 107 mmol/L 98-108 [facility] Creatinine [Mass/Vol]Ordered By: Audra Drake on 06-22-2024 Serum creatinine measurement (mass/volume) 0.78 mg/dL 0.70-1.20 [facility] Eosinophil percentageOrdered By: Audra Drake on 06-22-2024 Eosinophils/100 WBC (Bld) 2.3 % 0-5 [facility] Eosinophil percentage 2.3 % 0-5 [facility] Erythrocyte distribution wid th (RBC) [Ratio]Ordered By: Audra Drake on 06-22-2024 Erythrocyte distribution width ratio 13.9 % 11.6-14.6 [facility] Erythrocyte distribution width (RBC) [Entitic vol] 51.1 fL High 35.1-43.9 [facility] Erythrocyte distribution width standard deviation 51.1 fl High 35.1-43.9 [facility] Erythrocyte distribution wid th ratioOrdered By: Audra Drake on 06-22-2024 Erythrocyte distribution width (RBC) [Ratio] 13.9 % 11.6-14.6 [facility] Erythrocyte distribution wid th standard deviationOrdered By: Audra Drake on 06-22-2024 Erythrocyte distribution width (RBC) [Ratio] 51.1 fl High 35.1-43.9 [facility] GFR/1.73 sq M.predicted viji g non-blacks MDRD (S/P/Bld) [Vol rate/Area]Ordered By: Audra Drake on 06-22-2024 Estimated GFR (MDRD) Non-Af Amer 78 >60 [facility] Comment on above: mL/min/1.73m2 CKD-EP I Creatinine Equation (2020) Glomerular filtration rate (GFR) estimation/1.73 sq m using serum, plasma, or whole b 78 >60 [facility] Glomerular filtration rate ( GFR) estimation/1.73 sq m using serum, plasma, or whole bOrdered By: Audra Drake on 06-22-2024 GFR/1.73 sq M.predicted among non-blacks MDRD (S/P/Bld) [Vol rate/Area] 78 mL/min/{1.73_m2} >60 [facility] Glucose [Mass/Vol]Ordered By : Audra Drake on 06-22-2024 Serum glucose measurement (mass/volume) 91 mg/dL 70-99 [facility] Hematocrit Auto (Bld) [Volum e fraction]Ordered By: Audra Drake on 06-22-2024 Hematocrit (Bld) [Volume fraction] 35.7 % Low 37-47 [facility] Automated blood hematocrit (percentage) 35.7 % Low 37-47 [facility] Hemoglobin measurementOrdere d By: Audra Drake on 06-22-2024 Hemoglobin (Bld) [Mass/Vol] 11.6 g/dL Low 12.0-15. 0 [facility] Hemoglobin measurement 11.6 g/dL Low 12.0-15.0 [facility] Immature granulocytes/100 WB C Auto (Bld)Ordered By: Audra Drake on 06-22-2024 Immature granulocytes/100 WBC (Bld) 1.100 % High 0.0-0.9 [facility] Comment on above: IG% - Immature Granu locytes (promyelocytes, myelocytes and metamyelocytes) > 1% indicates that a LEFT SHIFT is Present. Automated immature granulocyte percentage 1.100 % High 0.0-0.9 [facility] Lymphocytes Auto (Unsp spec) [#/Vol]Ordered By: Audra Drake on 06-22-2024 Lymphocytes (Bld) [#/Vol] 1.15 10*3/uL 0.83-4.5 1 [facility] Absolute lymphocyte count 1.15 X10^3/uL 0.83-4. 51 [facility] Lymphocytes/100 WBC Auto (Un sp spec)Ordered By: Audra Drake on 06-22-2024 Lymphocytes/100 WBC (Bld) 16.2 % Low 19-41 [facility] Automated lymphocyte count as percentage of total leukocytes 16.2 % Low 19-41 [facility] MCV (RBC) [Entitic vol]Order ed By: Audra Drake on 06-22-2024 MCV (mean corpuscular volume) determination 100.3 fL High 81-99 [facility] MCV (mean corpuscular volume ) determinationOrdered By: Audra Drake on 06-22-2024 MCV (RBC) [Entitic vol] 100.3 fL High 81-99 [facility] Mean corpuscular hemoglobin (MCH) determinationOrdered By: Audra Drake on 06-22-2024 MCH (RBC) [Entitic mass] 32.6 pg High 27.0-32.0 [facility] Mean corpuscular hemoglobin (MCH) determination 32.6 pg High 27.0-32.0 [facility] Mean corpuscular hemoglobin concentration (MCHC) determinationOrdered By: Audra Drake on 06-22-2024 MCHC (RBC) [Mass/Vol] 32.5 g/dL 32-36 [facility] Mean corpuscular hemoglobin concentration (MCHC) determination 32.5 g/dL -36 [facility] Mean platelet volume determi nationOrdered By: Audra Drake on 06-22-2024 Platelet mean volume (Bld) [Entitic vol] 9.9 fL 6.2-12.0 [facility] Mean platelet volume determination 9.9 fl 6.2-12.0 [facility] Monocyte percentageOrdered B y: Audra Drake on 06-22-2024 Monocytes/100 WBC (Bld) 11.0 % High 0-10 [facility] Monocyte percentage 11.0 % High 0-10 [facility] Neutrophil percentageOrdered By: Audra Drake on 06-22-2024 Neutrophils/100 WBC (Bld) 68.8 % 47-70 [facility] Neutrophil percentage 68.8 % 47-70 [facility] Nucleated red blood cell per centageOrdered By: Audra Drake on 06-22-2024 Nucleated RBC/100 WBC (Bld) [Ratio] 0 % 0-5 [facility] Nucleated red blood cell percentage 0 % 0-5 [facility] Platelet countOrdered By: Dimitris Drake on 06-22-2024 Platelets (Bld) [#/Vol] 235 10*3/uL 150-450 [facility] Platelet count 235 K/mm3 150-450 [facility] Potassium (Unsp spec) [Mass/ Vol]Ordered By: Audra Drake on 06-22-2024 Potassium [Moles/Vol] 4.4 mmol/L 3.3-5.1 [facility] Potassium measurement (mass/volume) 4.4 mmol/L 3.3-5.1 [facility] Potassium measurement (mass/ volume)Ordered By: Audra Drake on 06-22-2024 Potassium (Unsp spec) [Mass/Vol] 4.4 mmol/L 3.3-5.1 [facility] RBC Auto (Bld) [#/Vol]Ordere d By: Audra Drake on 06-22-2024 RBC (Bld) [#/Vol] 3.56 10*6/uL Low 4.2-5.4 [facility] Automated blood erythrocyte count 3.56 M/mm3 Low 4.2-5.4 [facility] Serum creatinine measurement (mass/volume)Ordered By: Audra Drake on 06-22-2024 Creatinine [Mass/Vol] 0.78 mg/dL 0.70-1.20 [facility] Serum glucose measurement (m ass/volume)Ordered By: Audra Drake on 06-22-2024 Glucose [Mass/Vol] 91 mg/dL 70-99 [facility] Serum or plasma calcium gianluca urement (mass/volume)Ordered By: Audra Drake on 06-22-2024 Calcium [Mass/Vol] 8.6 mg/dL 7.6-11.0 [facility] Serum or plasma urea nitroge n measurement (mass/volume)Ordered By: Audra Drake on 06-22-2024 Urea nitrogen [Mass/Vol] 15 mg/dL - [facility] Sodium levelOrdered By: Cony Drake on 06-22-2024 Sodium [Moles/Vol] 138 mmol/L 133-145 [facility] Sodium level 138 mmol/L 133-145 [facility] Urea nitrogen [Mass/Vol]Orde red By: Audra Drake on 06-22-2024 Serum or plasma urea nitrogen measurement (mass/volume) 15 mg/dL - [facility] White blood cell (WBC) count Ordered By: Audra Drake on 06-22-2024 WBC (Bld) [#/Vol] 7.1 10*3/uL 4.4-11.0 [facility] White blood cell (WBC) count 7.1 K/mm3 4.4-11.0 [facility] Absolute lymphocyte countOrd ered By: Nikia Henderson on 06-15-2024 Lymphocytes Auto (Unsp spec) [#/Vol] 1.51 10*3/uL 0.83-4.51 [facility] Absolute neutrophil countOrd ered By: Nikia Henderson on 06-15-2024 Neutrophils (Bld) [#/Vol] 2.2 10*3/uL 2.0-7.7 [facility] Absolute neutrophil count 2.2 X10^3/uL 2.0-7.7 [facility] Anion gap [Moles/Vol]Ordered By: Nikia Henderson on 06-15-2024 Anion gap in Serum or Plasma 11 5- [facility] Anion gap in Serum or Plasma Ordered By: Nikia Henderson on 06-15-2024 Anion gap [Moles/Vol] 11 mmol/L - [facility] Automated lymphocyte count a s percentage of total leukocytesOrdered By: Nikia Henderson on 06-15-2024 Lymphocytes/100 WBC Auto (Unsp spec) 34.6 % [facility] BUN/creatinine ratioOrdered By: Nikia Henderson on 06-15-2024 Urea nitrogen/Creatinine [Mass ratio] 22.9 mg/mg High 10-20 [facility] BUN/creatinine ratio 22.9 RATIO High 10-20 [facility] Basophil percentageOrdered B y: Nikia Henderson on 06-15-2024 Basophils/100 WBC (Bld) 0.5 % 0-1 [facility] Basophil percentage 0.5 % 0-1 [facility] Calcium [Mass/Vol]Ordered By : Nikia Henderson on 06-15-2024 Serum or plasma calcium measurement (mass/volume) 8.7 mg/dL 7.6-11.0 [facility] Carbon dioxide, total [Moles /volume] in Central venous bloodOrdered By: Nikia Henderson on 06-15-2024 CO2 [Moles/Vol] 20.2 mmol/L Low 21.0-32.0 [facility] Carbon dioxide, total [Moles/volume] in Central venous blood 20.2 mmol/L Low 21.0-32.0 [facility] Chloride assayOrdered By: Cecilia Henderson on 06-15-2024 Chloride [Moles/Vol] 111 mmol/L High 98-108 [facility] Chloride assay 111 mmol/L High 98-108 [facility] Creatinine [Mass/Vol]Ordered By: Nikia Henderson on 06-15-2024 Serum creatinine measurement (mass/volume) 0.65 mg/dL Low 0.70-1.20 [facility] Eosinophil percentageOrdered By: Nikia Henderson on 06-15-2024 Eosinophils/100 WBC (Bld) 2.1 % 0-5 [facility] Eosinophil percentage 2.1 % 0-5 [facility] Erythrocyte distribution wid th (RBC) [Ratio]Ordered By: Nikia Henderson on 06-15-2024 Erythrocyte distribution width ratio 14.2 % 11.6-14.6 [facility] Erythrocyte distribution width (RBC) [Entitic vol] 52.7 fL High 35.1-43.9 [facility] Erythrocyte distribution width standard deviation 52.7 fl High 35.1-43.9 [facility] Erythrocyte distribution wid th ratioOrdered By: Nikia Henderson on 06-15-2024 Erythrocyte distribution width (RBC) [Ratio] 14.2 % 11.6-14.6 [facility] Erythrocyte distribution wid th standard deviationOrdered By: Nikia Henderson on 06-15-2024 Erythrocyte distribution width (RBC) [Ratio] 52.7 fl High 35.1-43.9 [facility] GFR/1.73 sq M.predicted viji g non-blacks MDRD (S/P/Bld) [Vol rate/Area]Ordered By: Nikia Henderson on 06-15-2024 Estimated GFR (MDRD) Non-Af Amer 90 >60 [facility] Comment on above: mL/min/1.73m2 CKD-EP I Creatinine Equation (2020) Glomerular filtration rate (GFR) estimation/1.73 sq m using serum, plasma, or whole b 90 >60 [facility] Glomerular filtration rate ( GFR) estimation/1.73 sq m using serum, plasma, or whole bOrdered By: Nikia Henderson on 06-15-2024 GFR/1.73 sq M.predicted among non-blacks MDRD (S/P/Bld) [Vol rate/Area] 90 mL/min/{1.73_m2} >60 [facility] Glucose [Mass/Vol]Ordered By : Nikia Henderson on 06-15-2024 Serum glucose measurement (mass/volume) 83 mg/dL 70-99 [facility] Hematocrit Auto (Bld) [Volum e fraction]Ordered By: Nikia Henderson on 06-15-2024 Hematocrit (Bld) [Volume fraction] 39.1 % 37-47 [facility] Automated blood hematocrit (percentage) 39.1 % 37-47 [facility] Hemoglobin measurementOrdere d By: Nikia Henderson on 06-15-2024 Hemoglobin (Bld) [Mass/Vol] 12.4 g/dL 12.0-15. 0 [facility] Hemoglobin measurement 12.4 g/dL 12.0-15.0 [facility] Immature granulocytes/100 WB C Auto (Bld)Ordered By: Nikia Henderson on 06-15-2024 Immature granulocytes/100 WBC (Bld) 0.700 % 0.0-0.9 [facility] Comment on above: IG% - Immature Granu locytes (promyelocytes, myelocytes and metamyelocytes) > 1% indicates that a LEFT SHIFT is Present. Automated immature granulocyte percentage 0.700 % 0.0-0.9 [facility] Lymphocytes Auto (Unsp spec) [#/Vol]Ordered By: Nikia Henderson on 06-15-2024 Lymphocytes (Bld) [#/Vol] 1.51 10*3/uL 0.83-4.5 1 [facility] Absolute lymphocyte count 1.51 X10^3/uL 0.83-4. 51 [facility] Lymphocytes/100 WBC Auto (Un sp spec)Ordered By: Nikia Henderson on 06-15-2024 Lymphocytes/100 WBC (Bld) 34.6 % [facility] Automated lymphocyte count as percentage of total leukocytes 34.6 % [facility] MCV (RBC) [Entitic vol]Order ed By: Nikia Henderson on 06-15-2024 MCV (mean corpuscular volume) determination 100.8 fL High 81-99 [facility] MCV (mean corpuscular volume ) determinationOrdered By: Nikia Henderson on 06-15-2024 MCV (RBC) [Entitic vol] 100.8 fL High 81-99 [facility] Mean corpuscular hemoglobin (MCH) determinationOrdered By: Nikia Henderson on 06-15-2024 MCH (RBC) [Entitic mass] 32.0 pg 27.0-32.0 [facility] Mean corpuscular hemoglobin (MCH) determination 32.0 pg 27.0-32.0 [facility] Mean corpuscular hemoglobin concentration (MCHC) determinationOrdered By: Nikia Henderson on 06-15-2024 MCHC (RBC) [Mass/Vol] 31.7 g/dL Low 32-36 [facility] Mean corpuscular hemoglobin concentration (MCHC) determination 31.7 g/dL Low 32-36 [facility] Mean platelet volume determi nationOrdered By: Nikia Henderson on 06-15-2024 Platelet mean volume (Bld) [Entitic vol] 9.6 fL 6.2-12.0 [facility] Mean platelet volume determination 9.6 fl 6.2-12.0 [facility] Monocyte percentageOrdered B y: Nikia Henderson on 06-15-2024 Monocytes/100 WBC (Bld) 11.5 % High 0-10 [facility] Monocyte percentage 11.5 % High 0-10 [facility] Neutrophil percentageOrdered By: Nikia Henderson on 06-15-2024 Neutrophils/100 WBC (Bld) 50.6 % 47-70 [facility] Neutrophil percentage 50.6 % 47-70 [facility] Nucleated red blood cell per centageOrdered By: Nikia Henderson on 06-15-2024 Nucleated RBC/100 WBC (Bld) [Ratio] 0 % 0-5 [facility] Nucleated red blood cell percentage 0 % 0-5 [facility] Platelet countOrdered By: Cecilia Henderson on 06-15-2024 Platelets (Bld) [#/Vol] 215 10*3/uL 150-450 [facility] Platelet count 215 K/mm3 150-450 [facility] Potassium (Unsp spec) [Mass/ Vol]Ordered By: Nikia Henderson on 06-15-2024 Potassium [Moles/Vol] 4.7 mmol/L 3.3-5.1 [facility] Comment on above: Hemolysis present, R esults could be affected. Potassium measurement (mass/volume) 4.7 mmol/L 3.3-5.1 [facility] Potassium measurement (mass/ volume)Ordered By: Nikia Henderson on 06-15-2024 Potassium (Unsp spec) [Mass/Vol] 4.7 mmol/L 3.3-5.1 [facility] RBC Auto (Bld) [#/Vol]Ordere d By: Nikia Henderson on 06-15-2024 RBC (Bld) [#/Vol] 3.88 10*6/uL Low 4.2-5.4 [facility] Automated blood erythrocyte count 3.88 M/mm3 Low 4.2-5.4 [facility] Serum creatinine measurement (mass/volume)Ordered By: Nikia Henderson on 06-15-2024 Creatinine [Mass/Vol] 0.65 mg/dL Low 0.70-1.20 [facility] Serum glucose measurement (m ass/volume)Ordered By: Nikia Henderson on 06-15-2024 Glucose [Mass/Vol] 83 mg/dL 70-99 [facility] Serum or plasma calcium gianluca urement (mass/volume)Ordered By: Nikia Henderson on 06-15-2024 Calcium [Mass/Vol] 8.7 mg/dL 7.6-11.0 [facility] Serum or plasma urea nitroge n measurement (mass/volume)Ordered By: Nikia Henderson on 06-15-2024 Urea nitrogen [Mass/Vol] 15 mg/dL 07-17 [facility] Sodium levelOrdered By: Catalina Henderson on 06-15-2024 Sodium [Moles/Vol] 142 mmol/L 133-145 [facility] Sodium level 142 mmol/L 133-145 [facility] Urea nitrogen [Mass/Vol]Orde red By: Nikia Henderson on 06-15-2024 Serum or plasma urea nitrogen measurement (mass/volume) 15 mg/dL 4- [facility] White blood cell (WBC) count Ordered By: Nikia Henderson on 06-15-2024 WBC (Bld) [#/Vol] 4.4 10*3/uL 4.4-11.0 [facility] White blood cell (WBC) count 4.4 K/mm3 4.4-11.0 [facility] Absolute lymphocyte countOrd ered By: Nikia Henderson on 06-08-2024 Lymphocytes Auto (Unsp spec) [#/Vol] 1.41 10*3/uL 0.83-4.51 [facility] Absolute neutrophil countOrd ered By: Nikia Henderson on 06-08-2024 Neutrophils (Bld) [#/Vol] 3.7 10*3/uL 2.0-7.7 [facility] Absolute neutrophil count 3.7 X10^3/uL 2.0-7.7 [facility] Anion gap [Moles/Vol]Ordered By: Nikia Henderson on 06-08-2024 Anion gap in Serum or Plasma 10 5-15 [facility] Anion gap in Serum or Plasma Ordered By: Nikia Henderson on 06-08-2024 Anion gap [Moles/Vol] 10 mmol/L 5-15 [facility] Automated lymphocyte count a s percentage of total leukocytesOrdered By: Nikia Henderson on 06-08-2024 Lymphocytes/100 WBC Auto (Unsp spec) 23.7 % 19-41 [facility] BUN/creatinine ratioOrdered By: Nikia Henderson on 06-08-2024 Urea nitrogen/Creatinine [Mass ratio] 29.4 mg/mg High 10-20 [facility] BUN/creatinine ratio 29.4 RATIO High 10-20 [facility] Basophil percentageOrdered B y: Nikia Henderson on 06-08-2024 Basophils/100 WBC (Bld) 0.3 % 0-1 [facility] Basophil percentage 0.3 % 0-1 [facility] Calcium [Mass/Vol]Ordered By : Nikia Henderson on 06-08-2024 Serum or plasma calcium measurement (mass/volume) 8.9 mg/dL 7.6-11.0 [facility] Carbon dioxide, total [Moles /volume] in Central venous bloodOrdered By: Nikia Henderson on 06-08-2024 CO2 [Moles/Vol] 21.5 mmol/L 21.0-32.0 [facility] Carbon dioxide, total [Moles/volume] in Central venous blood 21.5 mmol/L 21.0-32.0 [facility] Chloride assayOrdered By: Cecilia Henderson on 06-08-2024 Chloride [Moles/Vol] 110 mmol/L High 98-108 [facility] Chloride assay 110 mmol/L High 98-108 [facility] Creatinine [Mass/Vol]Ordered By: Nikia Henderson on 06-08-2024 Serum creatinine measurement (mass/volume) 0.68 mg/dL Low 0.70-1.20 [facility] Eosinophil percentageOrdered By: Nikia Henderson on 06-08-2024 Eosinophils/100 WBC (Bld) 3.2 % 0-5 [facility] Eosinophil percentage 3.2 % 0-5 [facility] Erythrocyte distribution wid th (RBC) [Ratio]Ordered By: Nikia Henderson on 06-08-2024 Erythrocyte distribution width ratio 14.5 % 11.6-14.6 [facility] Erythrocyte distribution width (RBC) [Entitic vol] 53.2 fL High 35.1-43.9 [facility] Erythrocyte distribution width standard deviation 53.2 fl High 35.1-43.9 [facility] Erythrocyte distribution wid th ratioOrdered By: Nikia Henderson on 06-08-2024 Erythrocyte distribution width (RBC) [Ratio] 14.5 % 11.6-14.6 [facility] Erythrocyte distribution wid th standard deviationOrdered By: Catalinarileyheladio Henderson on 06-08-2024 Erythrocyte distribution width (RBC) [Ratio] 53.2 fl High 35.1-43.9 [facility] GFR/1.73 sq M.predicted viji g non-blacks MDRD (S/P/Bld) [Vol rate/Area]Ordered By: Nikia Henderson on 06-08-2024 Estimated GFR (MDRD) Non-Af Amer 89 >60 [facility] Comment on above: mL/min/1.73m2 CKD-EP I Creatinine Equation (2020) Glomerular filtration rate (GFR) estimation/1.73 sq m using serum, plasma, or whole b 89 >60 [facility] Glomerular filtration rate ( GFR) estimation/1.73 sq m using serum, plasma, or whole bOrdered By: Nikia Henderson on 06-08-2024 GFR/1.73 sq M.predicted among non-blacks MDRD (S/P/Bld) [Vol rate/Area] 89 mL/min/{1.73_m2} >60 [facility] Glucose [Mass/Vol]Ordered By : Nikia Henderson on 06-08-2024 Serum glucose measurement (mass/volume) 85 mg/dL 70-99 [facility] Hematocrit Auto (Bld) [Volum e fraction]Ordered By: Nikia Henderson on 06-08-2024 Hematocrit (Bld) [Volume fraction] 35.9 % Low 37-47 [facility] Automated blood hematocrit (percentage) 35.9 % Low 37-47 [facility] Hemoglobin measurementOrdere d By: Nikia Henderson on 06-08-2024 Hemoglobin (Bld) [Mass/Vol] 11.5 g/dL Low 12.0-15. 0 [facility] Hemoglobin measurement 11.5 g/dL Low 12.0-15.0 [facility] Immature granulocytes/100 WB C Auto (Bld)Ordered By: Nikia Henderson on 06-08-2024 Immature granulocytes/100 WBC (Bld) 0.300 % 0.0-0.9 [facility] Comment on above: IG% - Immature Granu locytes (promyelocytes, myelocytes and metamyelocytes) > 1% indicates that a LEFT SHIFT is Present. Automated immature granulocyte percentage 0.300 % 0.0-0.9 [facility] Lymphocytes Auto (Unsp spec) [#/Vol]Ordered By: Nikia Henderson on 06-08-2024 Lymphocytes (Bld) [#/Vol] 1.41 10*3/uL 0.83-4.5 1 [facility] Absolute lymphocyte count 1.41 X10^3/uL 0.83-4. 51 [facility] Lymphocytes/100 WBC Auto (Un sp spec)Ordered By: Nikia Henderson on 06-08-2024 Lymphocytes/100 WBC (Bld) 23.7 % [facility] Automated lymphocyte count as percentage of total leukocytes 23.7 % [facility] MCV (RBC) [Entitic vol]Order ed By: Nikia Henderson on 06-08-2024 MCV (mean corpuscular volume) determination 100.3 fL High 81-99 [facility] MCV (mean corpuscular volume ) determinationOrdered By: Nikia Henderson on 06-08-2024 MCV (RBC) [Entitic vol] 100.3 fL High 81-99 [facility] Mean corpuscular hemoglobin (MCH) determinationOrdered By: Nikia Henderson on 06-08-2024 MCH (RBC) [Entitic mass] 32.1 pg High 27.0-32.0 [facility] Mean corpuscular hemoglobin (MCH) determination 32.1 pg High 27.0-32.0 [facility] Mean corpuscular hemoglobin concentration (MCHC) determinationOrdered By: Nikia Henderson on 06-08-2024 MCHC (RBC) [Mass/Vol] 32.0 g/dL - [facility] Mean corpuscular hemoglobin concentration (MCHC) determination 32.0 g/dL - [facility] Mean platelet volume determi nationOrdered By: Nikia Henderson on 06-08-2024 Platelet mean volume (Bld) [Entitic vol] 9.4 fL 6.2-12.0 [facility] Mean platelet volume determination 9.4 fl 6.2-12.0 [facility] Monocyte percentageOrdered B y: Nikia Henderson on 06-08-2024 Monocytes/100 WBC (Bld) 9.4 % 0-10 [facility] Monocyte percentage 9.4 % 0-10 [facility] Neutrophil percentageOrdered By: Nikia Henderson on 06-08-2024 Neutrophils/100 WBC (Bld) 63.1 % 47-70 [facility] Neutrophil percentage 63.1 % 47-70 [facility] Nucleated red blood cell per centageOrdered By: Nikia Henderson on 06-08-2024 Nucleated RBC/100 WBC (Bld) [Ratio] 0 % 0-5 [facility] Nucleated red blood cell percentage 0 % 0-5 [facility] Platelet countOrdered By: Cecilia Henderson on 06-08-2024 Platelets (Bld) [#/Vol] 244 10*3/uL 150-450 [facility] Platelet count 244 K/mm3 150-450 [facility] Potassium (Unsp spec) [Mass/ Vol]Ordered By: Nikia Henderson on 06-08-2024 Potassium [Moles/Vol] 4.3 mmol/L 3.3-5.1 [facility] Potassium measurement (mass/volume) 4.3 mmol/L 3.3-5.1 [facility] Potassium measurement (mass/ volume)Ordered By: Nikia Henderson on 06-08-2024 Potassium (Unsp spec) [Mass/Vol] 4.3 mmol/L 3.3-5.1 [facility] RBC Auto (Bld) [#/Vol]Ordere d By: Nikia Henderson on 06-08-2024 RBC (Bld) [#/Vol] 3.58 10*6/uL Low 4.2-5.4 [facility] Automated blood erythrocyte count 3.58 M/mm3 Low 4.2-5.4 [facility] Serum creatinine measurement (mass/volume)Ordered By: Nikia Henderson on 06-08-2024 Creatinine [Mass/Vol] 0.68 mg/dL Low 0.70-1.20 [facility] Serum glucose measurement (m ass/volume)Ordered By: Nikia Henderson on 06-08-2024 Glucose [Mass/Vol] 85 mg/dL 70-99 [facility] Serum or plasma calcium gianluca urement (mass/volume)Ordered By: Nikia Henderson on 06-08-2024 Calcium [Mass/Vol] 8.9 mg/dL 7.6-11.0 [facility] Serum or plasma urea nitroge n measurement (mass/volume)Ordered By: Nikia Henderson on 06-08-2024 Urea nitrogen [Mass/Vol] 20 mg/dL High 07-17 [facility] Sodium levelOrdered By: Catalina Henderson on 06-08-2024 Sodium [Moles/Vol] 141 mmol/L 133-145 [facility] Sodium level 141 mmol/L 133-145 [facility] Urea nitrogen [Mass/Vol]Orde red By: Nikia Henderson on 06-08-2024 Serum or plasma urea nitrogen measurement (mass/volume) 20 mg/dL High 07-17 [facility] White blood cell (WBC) count Ordered By: Nikia Henderson on 06-08-2024 WBC (Bld) [#/Vol] 5.9 10*3/uL 4.4-11.0 [facility] White blood cell (WBC) count 5.9 K/mm3 4.4-11.0 [facility] Absolute lymphocyte countOrd ered By: Nikia Henderson on 06-01-2024 Lymphocytes Auto (Unsp spec) [#/Vol] 1.46 10*3/uL 0.83-4.51 [facility] Absolute neutrophil countOrd ered By: Nikia Henderson on 06-01-2024 Neutrophils (Bld) [#/Vol] 5.2 10*3/uL 2.0-7.7 [facility] Absolute neutrophil count 5.2 X10^3/uL 2.0-7.7 [facility] Anion gap [Moles/Vol]Ordered By: Nikia Henderson on 06-01-2024 Anion gap in Serum or Plasma 11 5-15 [facility] Anion gap in Serum or Plasma Ordered By: Nikia Henderson on 06-01-2024 Anion gap [Moles/Vol] 11 mmol/L 5-15 [facility] Automated lymphocyte count a s percentage of total leukocytesOrdered By: Nikia Henderson on 06-01-2024 Lymphocytes/100 WBC Auto (Unsp spec) 19.4 % 19-41 [facility] BUN/creatinine ratioOrdered By: Nikia Henderson on 06-01-2024 Urea nitrogen/Creatinine [Mass ratio] 30.2 mg/mg High 10-20 [facility] BUN/creatinine ratio 30.2 RATIO High 10-20 [facility] Basophil percentageOrdered B y: Nikia Henderson on 06-01-2024 Basophils/100 WBC (Bld) 0.7 % 0-1 [facility] Basophil percentage 0.7 % 0-1 [facility] Calcium [Mass/Vol]Ordered By : Nikia Henderson on 06-01-2024 Serum or plasma calcium measurement (mass/volume) 9.0 mg/dL 7.6-11.0 [facility] Carbon dioxide, total [Moles /volume] in Central venous bloodOrdered By: Nikia Henderson on 06-01-2024 CO2 [Moles/Vol] 20.7 mmol/L Low 21.0-32.0 [facility] Carbon dioxide, total [Moles/volume] in Central venous blood 20.7 mmol/L Low 21.0-32.0 [facility] Chloride assayOrdered By: Cecilia Henderson on 06-01-2024 Chloride [Moles/Vol] 110 mmol/L High 98-108 [facility] Chloride assay 110 mmol/L High 98-108 [facility] Creatinine [Mass/Vol]Ordered By: Nikia Henderson on 06-01-2024 Serum creatinine measurement (mass/volume) 0.72 mg/dL 0.70-1.20 [facility] Eosinophil percentageOrdered By: Nikia Henderson on 06-01-2024 Eosinophils/100 WBC (Bld) 1.6 % 0-5 [facility] Eosinophil percentage 1.6 % 0-5 [facility] Erythrocyte distribution wid th (RBC) [Ratio]Ordered By: Nikia Henderson on 06-01-2024 Erythrocyte distribution width ratio 14.1 % 11.6-14.6 [facility] Erythrocyte distribution width (RBC) [Entitic vol] 51.8 fL High 35.1-43.9 [facility] Erythrocyte distribution width standard deviation 51.8 fl High 35.1-43.9 [facility] Erythrocyte distribution wid th ratioOrdered By: Nikia Henderson on 06-01-2024 Erythrocyte distribution width (RBC) [Ratio] 14.1 % 11.6-14.6 [facility] Erythrocyte distribution wid th standard deviationOrdered By: Nikia Henderson on 06-01-2024 Erythrocyte distribution width (RBC) [Ratio] 51.8 fl High 35.1-43.9 [facility] GFR/1.73 sq M.predicted viji g non-blacks MDRD (S/P/Bld) [Vol rate/Area]Ordered By: Nikia Henderson on 06-01-2024 Estimated GFR (MDRD) Non-Af Amer 86 >60 [facility] Comment on above: mL/min/1.73m2 CKD-EP I Creatinine Equation (2020) Glomerular filtration rate (GFR) estimation/1.73 sq m using serum, plasma, or whole b 86 >60 [facility] Glomerular filtration rate ( GFR) estimation/1.73 sq m using serum, plasma, or whole bOrdered By: Nikia Henderson on 06-01-2024 GFR/1.73 sq M.predicted among non-blacks MDRD (S/P/Bld) [Vol rate/Area] 86 mL/min/{1.73_m2} >60 [facility] Glucose [Mass/Vol]Ordered By : Nikia Henderson on 06-01-2024 Serum glucose measurement (mass/volume) 94 mg/dL 70-99 [facility] Hematocrit Auto (Bld) [Volum e fraction]Ordered By: Nikia Henderson on 06-01-2024 Hematocrit (Bld) [Volume fraction] 36.4 % Low 37-47 [facility] Automated blood hematocrit (percentage) 36.4 % Low 37-47 [facility] Hemoglobin measurementOrdere d By: Nikia Henderson on 06-01-2024 Hemoglobin (Bld) [Mass/Vol] 11.7 g/dL Low 12.0-15. 0 [facility] Hemoglobin measurement 11.7 g/dL Low 12.0-15.0 [facility] Immature granulocytes/100 WB C Auto (Bld)Ordered By: Nikia Henderson on 06-01-2024 Immature granulocytes/100 WBC (Bld) 0.400 % 0.0-0.9 [facility] Comment on above: IG% - Immature Granu locytes (promyelocytes, myelocytes and metamyelocytes) > 1% indicates that a LEFT SHIFT is Present. Automated immature granulocyte percentage 0.400 % 0.0-0.9 [facility] Lymphocytes Auto (Unsp spec) [#/Vol]Ordered By: Nikia Henderson on 06-01-2024 Lymphocytes (Bld) [#/Vol] 1.46 10*3/uL 0.83-4.5 1 [facility] Absolute lymphocyte count 1.46 X10^3/uL 0.83-4. 51 [facility] Lymphocytes/100 WBC Auto (Un sp spec)Ordered By: Nikia Henderson on 06-01-2024 Lymphocytes/100 WBC (Bld) 19.4 % [facility] Automated lymphocyte count as percentage of total leukocytes 19.4 % [facility] MCV (RBC) [Entitic vol]Order ed By: Nikia Henderson on 06-01-2024 MCV (mean corpuscular volume) determination 100.6 fL High 81-99 [facility] MCV (mean corpuscular volume ) determinationOrdered By: Nikia Henderson on 06-01-2024 MCV (RBC) [Entitic vol] 100.6 fL High 81-99 [facility] Mean corpuscular hemoglobin (MCH) determinationOrdered By: Nikia Henderson on 06-01-2024 MCH (RBC) [Entitic mass] 32.3 pg High 27.0-32.0 [facility] Mean corpuscular hemoglobin (MCH) determination 32.3 pg High 27.0-32.0 [facility] Mean corpuscular hemoglobin concentration (MCHC) determinationOrdered By: Nikia Henderson on 06-01-2024 MCHC (RBC) [Mass/Vol] 32.1 g/dL 32-36 [facility] Mean corpuscular hemoglobin concentration (MCHC) determination 32.1 g/dL 32-36 [facility] Mean platelet volume determi nationOrdered By: Nikia Henderson on 06-01-2024 Platelet mean volume (Bld) [Entitic vol] 9.8 fL 6.2-12.0 [facility] Mean platelet volume determination 9.8 fl 6.2-12.0 [facility] Monocyte percentageOrdered B y: Nikia Henderson on 06-01-2024 Monocytes/100 WBC (Bld) 8.5 % 0-10 [facility] Monocyte percentage 8.5 % 0-10 [facility] Neutrophil percentageOrdered By: Nikia Henderson on 06-01-2024 Neutrophils/100 WBC (Bld) 69.4 % 47-70 [facility] Neutrophil percentage 69.4 % 47-70 [facility] Nucleated red blood cell per centageOrdered By: Nikia Henderson on 06-01-2024 Nucleated RBC/100 WBC (Bld) [Ratio] 0 % 0-5 [facility] Nucleated red blood cell percentage 0 % 0-5 [facility] Platelet countOrdered By: Cecilia Henderson on 06-01-2024 Platelets (Bld) [#/Vol] 234 10*3/uL 150-450 [facility] Platelet count 234 K/mm3 150-450 [facility] Potassium (Unsp spec) [Mass/ Vol]Ordered By: Nikia Henderson on 06-01-2024 Potassium [Moles/Vol] 4.4 mmol/L 3.3-5.1 [facility] Potassium measurement (mass/volume) 4.4 mmol/L 3.3-5.1 [facility] Potassium measurement (mass/ volume)Ordered By: Nikia Henderson on 06-01-2024 Potassium (Unsp spec) [Mass/Vol] 4.4 mmol/L 3.3-5.1 [facility] RBC Auto (Bld) [#/Vol]Ordere d By: Nikia Henderson on 06-01-2024 RBC (Bld) [#/Vol] 3.62 10*6/uL Low 4.2-5.4 [facility] Automated blood erythrocyte count 3.62 M/mm3 Low 4.2-5.4 [facility] Serum creatinine measurement (mass/volume)Ordered By: Nikia Henderson on 06-01-2024 Creatinine [Mass/Vol] 0.72 mg/dL 0.70-1.20 [facility] Serum glucose measurement (m ass/volume)Ordered By: Nikia Henderson on 06-01-2024 Glucose [Mass/Vol] 94 mg/dL 70-99 [facility] Serum or plasma calcium gianluca urement (mass/volume)Ordered By: Nikia Henderson on 06-01-2024 Calcium [Mass/Vol] 9.0 mg/dL 7.6-11.0 [facility] Serum or plasma urea nitroge n measurement (mass/volume)Ordered By: Nikia Henderson on 06-01-2024 Urea nitrogen [Mass/Vol] 22 mg/dL High 4-19 [facility] Sodium levelOrdered By: Catalina Henderson on 06-01-2024 Sodium [Moles/Vol] 142 mmol/L 133-145 [facility] Sodium level 142 mmol/L 133-145 [facility] Urea nitrogen [Mass/Vol]Orde red By: Nikia Henderson on 06-01-2024 Serum or plasma urea nitrogen measurement (mass/volume) 22 mg/dL High 4-19 [facility] White blood cell (WBC) count Ordered By: Nikia Henderson on 06-01-2024 WBC (Bld) [#/Vol] 7.5 10*3/uL 4.4-11.0 [facility] White blood cell (WBC) count 7.5 K/mm3 4.4-11.0 [facility] Basic Metabolic Profile (BMP )on 05-28-2024 BUN Normal 7-18 [facility] Comment on above: Result Comment: Canc elled via OM: Order cancelled - Patient discharged Performed By: #### L 500.2500, L100.0100 ####[facility] [address] [place], [address] BUN/CRE Normal 10-20 [facility] Comment on above: Result Comment: Canc elled via OM: Order cancelled - Patient discharged Performed By: #### L 500.2500, L100.0100 ####[facility] [address] [place], [address] CA,Total Normal 8.5-10.1 [facility] Comment on above: Result Comment: Canc elled via OM: Order cancelled - Patient discharged Performed By: #### L 500.2500, L100.0100 ####[facility] [address] [place], [address] CL Normal 98-107 [facility] Comment on above: Result Comment: Canc elled via OM: Order cancelled - Patient discharged Performed By: #### L 500.2500, L100.0100 ####[facility] [address] [place], [address] CO2 Normal 21.0-32.0 [facility] Comment on above: Result Comment: Canc elled via OM: Order cancelled - Patient discharged Performed By: #### L 500.2500, L100.0100 ####[facility] [address] [place], [address] CREAT,SERUM Normal 0.55-1.02 [facility] Comment on above: Result Comment: Canc elled via OM: Order cancelled - Patient discharged Performed By: #### L 500.2500, L100.0100 ####[facility] [address] [place], [address] EST GFR Normal >60 [facility] Comment on above: Result Comment: Canc elled via OM: Order cancelled - Patient discharged Performed By: #### L 500.2500, L100.0100 ####[facility] [address] [place], [address] EST GFR - AA Normal >60 [facility] Comment on above: Result Comment: Canc elled via OM: Order cancelled - Patient discharged Performed By: #### L 500.2500, L100.0100 ####[facility] [address] [place], [address] GAP Normal 5-15 [facility] Comment on above: Result Comment: Canc elled via OM: Order cancelled - Patient discharged Performed By: #### L 500.2500, L100.0100 ####[facility] [address] [place], [address] GLU Normal 74-106 [facility] Comment on above: Result Comment: Canc elled via OM: Order cancelled - Patient discharged Performed By: #### L 500.2500, L100.0100 ####[facility] [address] [place], [address] Potassium Normal 3.5-5.1 [facility] Comment on above: Result Comment: Canc elled via OM: Order cancelled - Patient discharged Performed By: #### L 500.2500, L100.0100 ####[facility] [address] [place], [address] Basic Metabolic Profile (BMP) Normal 136-145 [facility] Comment on above: Result Comment: Canc elled via OM: Order cancelled - Patient discharged Performed By: #### L 500.2500, L100.0100 ####[facility] [address] [place], [address] CBC W/Diff, Automatedon 05-02 Absolute Neut Normal 2.0-7.7 [facility] Comment on above: Result Comment: Canc elled via OM: Order cancelled - Patient discharged Performed By: #### L 500.2500, L100.0100 ####[facility] [address] [place], [address] HCT Normal 37-47 [facility] Comment on above: Result Comment: Canc elled via OM: Order cancelled - Patient discharged Performed By: #### L 500.2500, L100.0100 ####[facility] [address] [place], [address] HGB Normal 12.0-15.0 [facility] Comment on above: Result Comment: Canc elled via OM: Order cancelled - Patient discharged Performed By: #### L 500.2500, L100.0100 ####[facility] [address] [place], [address] MCH Normal 27.0-32.0 [facility] Comment on above: Result Comment: Canc elled via OM: Order cancelled - Patient discharged Performed By: #### L 500.2500, L100.0100 ####[facility] [address] [place], [address] MCHC Normal 32-36 [facility] Comment on above: Result Comment: Canc elled via OM: Order cancelled - Patient discharged Performed By: #### L 500.2500, L100.0100 ####[facility] [address] [place], [address] MCV Normal 81-99 [facility] Comment on above: Result Comment: Canc elled via OM: Order cancelled - Patient discharged Performed By: #### L 500.2500, L100.0100 ####[facility] [address] [place], [address] NEUT% Normal 47-70 [facility] Comment on above: Result Comment: Canc elled via OM: Order cancelled - Patient discharged Performed By: #### L 500.2500, L100.0100 ####[facility] [address] [place], [address] PLT Normal 150-450 [facility] Comment on above: Result Comment: Canc elled via OM: Order cancelled - Patient discharged Performed By: #### L 500.2500, L100.0100 ####[facility] [address] [place], [address] RBC Normal 4.2-5.4 [facility] Comment on above: Result Comment: Canc elled via OM: Order cancelled - Patient discharged Performed By: #### L 500.2500, L100.0100 ####[facility] [address] [place], [address] RDW CV Normal 11.6-14.6 [facility] Comment on above: Result Comment: Canc elled via OM: Order cancelled - Patient discharged Performed By: #### L 500.2500, L100.0100 ####[facility] [address] [place], [address] RDW SD Normal 35.1-43.9 [facility] Comment on above: Result Comment: Canc elled via OM: Order cancelled - Patient discharged Performed By: #### L 500.2500, L100.0100 ####[facility] [address] [place], [address] WBC Normal 4.4-11.0 [facility] Comment on above: Result Comment: Canc elled via OM: Order cancelled - Patient discharged Performed By: #### L 500.2500, L100.0100 ####[facility] [address] [place], [address] Absolute lymphocyte countOrd ered By: Michael Sp on 05-21-2024 Lymphocytes Auto (Unsp spec) [#/Vol] 1.68 10*3/uL 0.83-4.51 [facility] Absolute neutrophil countOrd ered By: Michael Amezquitaok on 05-21-2024 Neutrophils (Bld) [#/Vol] 6.3 10*3/uL 2.0-7.7 [facility] Absolute neutrophil count 6.3 X10^3/uL 2.0-7.7 [facility] Automated lymphocyte count a s percentage of total leukocytesOrdered By: Michael Sp on 05-21-2024 Lymphocytes/100 WBC Auto (Unsp spec) 18.3 % Low 19-41 [facility] Basic Metabolic Profile (BMP )on 05-21-2024 BUN/CRE 39.8 RATIO High 10-20 [facility] Comment on above: Performed By: #### L 500.2500, L100.0100 ####[facility] [address], [address] CA,Total 8.9 mg/dL Normal 8.5-10.1 [facility] Comment on above: Performed By: #### L 500.2500, L100.0100 ####[facility] [address] [place], [address] Chloride [Moles/Vol] 109 mmol/L High 98-107 [facility] Comment on above: Performed By: #### L 500.2500, L100.0100 ####[facility] [address] [place], [address] CO2 [Moles/Vol] 22.0 mmol/L Normal 21.0-32.0 [facility] Comment on above: Performed By: #### L 500.2500, L100.0100 ####[facility] [address] [place], [address] Creatinine [Mass/Vol] 0.80 mg/dL Normal 0.55-1.02 [facility] Comment on above: Result Comment: The validity of the calculated GFR GFRAA in patients over70 years has not been determined. Clinical correlation isessential. Performed By: #### L 500.2500, L100.0100 ####[facility] [address] [place], [address] ECRCL 50.86 ml/min Normal [facility] Comment on above: Performed By: #### L 500.2500, L100.0100 ####[facility] [address] [place], [address] EST GFR - AA 89 mL/min Normal >60 [facility] Comment on above: Result Comment: Afri can [place] GFR Calc Performed By: #### L 500.2500, L100.0100 ####[facility] [address] [place], [address] GAP 9 Normal 5-15 [facility] Comment on above: Performed By: #### L 500.2500, L100.0100 ####[facility] [address] [place], [address] GFR/1.73 sq M.predicted among non-blacks MDRD (S/P/Bld) [Vol rate/Area] 73 mL/min/{1.73_m2} Normal >60 [facility] Comment on above: Result Comment: Non- GFR Calc Performed By: #### L 500.2500, L100.0100 ####[facility] [address] [place], [address] Glucose [Mass/Vol] 85 mg/dL Normal 74-106 [facility] Comment on above: Performed By: #### L 500.2500, L100.0100 ####[facility] [address] [place], [address] Potassium [Moles/Vol] 5.1 mmol/L Normal 3.5-5.1 [facility] Comment on above: Performed By: #### L 500.2500, L100.0100 ####[facility] [address] [place], [address] Sodium [Moles/Vol] 140 mmol/L Normal 136-145 [facility] Comment on above: Performed By: #### L 500.2500, L100.0100 ####[facility] [address] [place], [address] Urea nitrogen [Mass/Vol] 32 mg/dL High 10-15 [facility] Comment on above: Performed By: #### L 500.2500, L100.0100 ####[facility] [address] [place], [address] Basophil percentageOrdered B y: Michael Snowden on 05-21-2024 Basophils/100 WBC (Bld) 0.1 % 0-1 [facility] Basophil percentage 0.1 % 0-1 [facility] Blood urea nitrogen (BUN)/cr eatinine ratioOrdered By: Michael Snowden on 05-21-2024 Urea nitrogen/Creatinine [Mass ratio] 39.8 mg/mg High 10-20 [facility] Blood urea nitrogen (BUN)/creatinine ratio 39.8 RATIO High - [facility] CBC W/Diff, Automatedon 05-02 Absolute Lymph 1.68 X10 3/uL Normal 0.83-4.51 [facility] Comment on above: Performed By: #### L 500.2500, L100.0100 ####[facility] [address] [place], [address] Absolute Neut 6.3 X10 3/uL Normal 2.0-7.7 [facility] Comment on above: Performed By: #### L 500.2500, L100.0100 ####[facility] [address] [place], [address] Basophils/100 WBC (Bld) 0.1 % Normal 0-1 [facility] Comment on above: Performed By: #### L 500.2500, L100.0100 ####[facility] [address] [place], [address] Eosinophils/100 WBC (Bld) 0.4 % Normal 0-5 [facility] Comment on above: Performed By: #### L 500.2500, L100.0100 ####[facility] [address] [place], [address] Erythrocyte distribution width (RBC) [Ratio] 14.3 % Normal 11.6-14.6 [facility] Comment on above: Performed By: #### L 500.2500, L100.0100 ####[facility] [address] [place], [address] Hematocrit (Bld) [Volume fraction] 34.3 % Low 37-47 [facility] Comment on above: Performed By: #### L 500.2500, L100.0100 ####[facility] [address] [place], [address] Hemoglobin (Bld) [Mass/Vol] 11.0 g/dL Low 12.0-15. 0 [facility] Comment on above: Performed By: #### L 500.2500, L100.0100 ####[facility] [address] [place], [address] IG% 2.600 High 0.0-0.9 [facility] Comment on above: Result Comment: IG% - Immature Granulocytes (promyelocytes, myelocytes andmetamyelocytes) > 1% indicates that a LEFT SHIFT is Present. Performed By: #### L 500.2500, L100.0100 ####[facility] [address] [place], [address] Lymphocytes/100 WBC (Bld) 18.3 % Low 19-41 [facility] Comment on above: Performed By: #### L 500.2500, L100.0100 ####[facility] [address] [place], [address] MCH (RBC) [Entitic mass] 31.7 pg Normal 27.0-32.0 [facility] Comment on above: Performed By: #### L 500.2500, L100.0100 ####[facility] [address] [place], [address] MCHC (RBC) [Mass/Vol] 32.1 g/dL Normal 32-36 [facility] Comment on above: Performed By: #### L 500.2500, L100.0100 ####[facility] [address] [place], [address] MCV (RBC) [Entitic vol] 98.8 fL Normal 81-99 [facility] Comment on above: Performed By: #### L 500.2500, L100.0100 ####[facility] [address] [place], [address] Monocytes/100 WBC (Bld) 9.6 % Normal 0-10 [facility] Comment on above: Performed By: #### L 500.2500, L100.0100 ####[facility] [address] [place], [address] Neutrophils/100 WBC (Bld) 69.0 % Normal 47-70 [facility] Comment on above: Performed By: #### L 500.2500, L100.0100 ####[facility] [address] [place], [address] Nucleated RBC (Bld) [#/Vol] 0 10*3/uL Normal 0-5 [facility] Comment on above: Performed By: #### L 500.2500, L100.0100 ####[facility] [address] [place], [address] Platelet mean volume (Bld) [Entitic vol] 8.9 fL Normal 6.2-12.0 [facility] Comment on above: Performed By: #### L 500.2500, L100.0100 ####[facility] [address] [place], [address] Platelets (Bld) [#/Vol] 280 10*3/uL Normal 150-450 [facility] Comment on above: Performed By: #### L 500.2500, L100.0100 ####[facility] [address] [place], [address] RBC (Bld) [#/Vol] 3.47 10*6/uL Low 4.2-5.4 [facility] Comment on above: Performed By: #### L 500.2500, L100.0100 ####[facility] [address] [place], [address] RDW SD 52.0 fl High 35.1-43.9 [facility] Comment on above: Performed By: #### L 500.2500, L100.0100 ####[facility] [address] [place], [address] WBC (Bld) [#/Vol] 9.2 10*3/uL Normal 4.4-11.0 [facility] Comment on above: Performed By: #### L 500.2500, L100.0100 ####[facility] [address] [place], [address] Calcium [Mass/Vol]Ordered By : Michael Snowden on 05-21-2024 Serum or plasma calcium measurement (mass/volume) 8.9 mg/dL 8.5-10.1 [facility] Carbon dioxide measurementOr dered By: Michael Snowden on 05-21-2024 CO2 [Moles/Vol] 22.0 mmol/L 21.0-32.0 [facility] Carbon dioxide measurement 22.0 mmol/L 21.0-32. 0 [facility] Chloride measurementOrdered By: Michael Snowden on 05-21-2024 Chloride [Moles/Vol] 109 mmol/L High 98-107 [facility] Chloride measurement 109 mmol/L High 98-107 [facility] Creatinine [Mass/Vol]Ordered By: Michael Snowden on 05-21-2024 Serum or plasma creatinine measurement (mass/volume) 0.80 mg/dL 0.55-1.02 [facility] Eosinophil percentageOrdered By: Michael Snowden on 05-21-2024 Eosinophils/100 WBC (Bld) 0.4 % 0-5 [facility] Eosinophil percentage 0.4 % 0-5 [facility] Erythrocyte distribution wid th (RBC) [Ratio]Ordered By: Michael Snowden 05-21-2024 Erythrocyte distribution width ratio 14.3 % 11.6-14.6 [facility] Erythrocyte distribution width (RBC) [Entitic vol] 52.0 fL High 35.1-43.9 [facility] Erythrocyte distribution width standard deviation 52.0 fl High 35.1-43.9 [facility] Erythrocyte distribution wid th ratioOrdered By: Michael Snowden on 05-21-2024 Erythrocyte distribution width (RBC) [Ratio] 14.3 % 11.6-14.6 [facility] Erythrocyte distribution wid th standard deviationOrdered By: Michael Snowden 05-21-2024 Erythrocyte distribution width (RBC) [Ratio] 52.0 fl High 35.1-43.9 [facility] Estimated glomerular filtrat ion rate (GFR) AmericanOrdered By: Michael Snowden 05-21-2024 Estimated GFR (MDRD) Amer 89 mL/min >60 [facility] Comment on above: GFR Calc Estimated glomerular filtration rate (GFR) 89 mL/min >60 [facility] Estimation of creatinine bharat aranceOrdered By: Michael Snowden on 05-21-2024 Estimated Creatinine Clearance Calc 50.86 ml/min [facility] Estimation of creatinine clearance 50.86 ml/min [facility] Glomerular filtration rate ( GFR) estimationOrdered By: Michael Snowden 05-21-2024 Estimated GFR (MDRD) Non-Af Amer 73 mL/min >60 [facility] Comment on above: Non- GFR Calc GFR/1.73 sq M.predicted among non-blacks MDRD (S/P/Bld) [Vol rate/Area] 73 mL/min/{1.73_m2} >60 [facility] Glomerular filtration rate (GFR) estimation 73 mL/min >60 [facility] Glucose measurementOrdered B y: Michael Snowden on 05-21-2024 Glucose [Mass/Vol] 85 mg/dL 74-106 [facility] Glucose measurement 85 mg/dL 74-106 [facility] Hematocrit Auto (Bld) [Volum e fraction]Ordered By: Michael Snowden on 05-21-2024 Hematocrit (Bld) [Volume fraction] 34.3 % Low 37-47 [facility] Automated blood hematocrit (percentage) 34.3 % Low 37-47 [facility] Hemoglobin measurementOrdere d By: Michael Snowden on 05-21-2024 Hemoglobin (Bld) [Mass/Vol] 11.0 g/dL Low 12.0-15. 0 [facility] Hemoglobin measurement 11.0 g/dL Low 12.0-15.0 [facility] Immature granulocytes/100 WB C Auto (Bld)Ordered By: Michael Snowden on 05-21-2024 Immature granulocytes/100 WBC (Bld) 2.600 % High 0.0-0.9 [facility] Comment on above: IG% - Immature Granu locytes (promyelocytes, myelocytes and metamyelocytes) > 1% indicates that a LEFT SHIFT is Present. Automated immature granulocyte percentage 2.600 % High 0.0-0.9 [facility] Lymphocytes Auto (Unsp spec) [#/Vol]Ordered By: Michael Snowden on 05-21-2024 Lymphocytes (Bld) [#/Vol] 1.68 10*3/uL 0.83-4.5 1 [facility] Absolute lymphocyte count 1.68 X10^3/uL 0.83-4. 51 [facility] Lymphocytes/100 WBC Auto (Un sp spec)Ordered By: Michael Snowden on 05-21-2024 Lymphocytes/100 WBC (Bld) 18.3 % Low 19-41 [facility] Automated lymphocyte count as percentage of total leukocytes 18.3 % Low 19-41 [facility] MCV (RBC) [Entitic vol]Order ed By: Michael Snowden on 05-21-2024 MCV (mean corpuscular volume) determination 98.8 fL 81-99 [facility] MCV (mean corpuscular volume ) determinationOrdered By: Michael Snowden on 05-21-2024 MCV (RBC) [Entitic vol] 98.8 fL 81-99 [facility] Mean corpuscular hemoglobin (MCH) determinationOrdered By: Michael Snowden on 05-21-2024 MCH (RBC) [Entitic mass] 31.7 pg 27.0-32.0 [facility] Mean corpuscular hemoglobin (MCH) determination 31.7 pg 27.0-32.0 [facility] Mean corpuscular hemoglobin concentration (MCHC) determinationOrdered By: Michael Snowden on 05-21-2024 MCHC (RBC) [Mass/Vol] 32.1 g/dL 32-36 [facility] Mean corpuscular hemoglobin concentration (MCHC) determination 32.1 g/dL 32-36 [facility] Mean platelet volume determi nationOrdered By: Michael Snowden on 05-21-2024 Platelet mean volume (Bld) [Entitic vol] 8.9 fL 6.2-12.0 [facility] Mean platelet volume determination 8.9 fl 6.2-12.0 [facility] Monocyte percentageOrdered B y: Michael Snowden on 05-21-2024 Monocytes/100 WBC (Bld) 9.6 % 0-10 [facility] Monocyte percentage 9.6 % 0-10 [facility] Neutrophil percentageOrdered By: Michael Snowden on 05-21-2024 Neutrophils/100 WBC (Bld) 69.0 % 47-70 [facility] Neutrophil percentage 69.0 % 47-70 [facility] Nucleated red blood cell per centageOrdered By: Michael Snowden on 05-21-2024 Nucleated RBC/100 WBC (Bld) [Ratio] 0 % 0-5 [facility] Nucleated red blood cell percentage 0 % 0-5 [facility] Platelet countOrdered By: Augusto Snowden on 05-21-2024 Platelets (Bld) [#/Vol] 280 10*3/uL 150-450 [facility] Platelet count 280 K/mm3 150-450 [facility] Potassium measurementOrdered By: Michael Snowden on 05-21-2024 Potassium [Moles/Vol] 5.1 mmol/L 3.5-5.1 [facility] Potassium measurement 5.1 mmol/L 3.5-5.1 [facility] RBC Auto (Bld) [#/Vol]Ordere d By: Michael Snowden on 05-21-2024 RBC (Bld) [#/Vol] 3.47 10*6/uL Low 4.2-5.4 [facility] Automated blood erythrocyte count 3.47 M/mm3 Low 4.2-5.4 [facility] Serum anion gap measurementO rdered By: Michael Snowden on 05-21-2024 Anion gap [Moles/Vol] 9 mmol/L 5-15 [facility] Serum anion gap measurement 9 5-15 [facility] Serum or plasma calcium gianluca urement (mass/volume)Ordered By: Michael Snowden 05-21-2024 Calcium [Mass/Vol] 8.9 mg/dL 8.5-10.1 [facility] Serum or plasma creatinine m easurement (mass/volume)Ordered By: Michael Snowden 05-21-2024 Creatinine [Mass/Vol] 0.80 mg/dL 0.55-1.02 [facility] Comment on above: The validity of the calculated GFR & GFRAA in patients over 70 years has not been determined. Clinical correlation is essential. Serum or plasma urea nitroge n measurement (mass/volume)Ordered By: Michael Snowden 05-21-2024 Urea nitrogen [Mass/Vol] 32 mg/dL High 18 [facility] Sodium levelOrdered By: Michael Snowden 05-21-2024 Sodium [Moles/Vol] 140 mmol/L 136-145 [facility] Sodium level 140 mmol/L 136-145 [facility] Urea nitrogen [Mass/Vol]Orde red By: Michael Snowden 05-21-2024 Serum or plasma urea nitrogen measurement (mass/volume) 32 mg/dL High 7-18 [facility] White blood cell (WBC) count Ordered By: Michael Snowden 05-21-2024 WBC (Bld) [#/Vol] 9.2 10*3/uL 4.4-11.0 [facility] White blood cell (WBC) count 9.2 K/mm3 4.4-11.0 [facility] COVID 19 AG RAPID (ELIE Saini)on 05-19-2024 SARS-CoV-2 (COVID-19) RNA DALILA+probe Ql (Unsp spec) Normal [facility] Comment on above: Performed By: #### M 100.505 ####[facility] [address] [place], [address] COVID-19 virus antigen assay Ordered By: Michael Snowden on 05-19-2024 SARS-CoV-2 (COVID-19) Ag IA.rapid Ql (Resp) [facility] SARS-CoV-2 (COVID-19) Ag IA. rapid Ql (Resp)Ordered By: Michael Snowden on 05-19-2024 SARS-CoV-2 Antigen (Rapid) [facility] Lumbar Spine 2 or 3 Viewson 05-18-2024 Lumbar Spine 2 or 3 Views Normal [facility] Basic Metabolic Profile (BMP )on 05-14-2024 BUN/CRE 22.1 RATIO High 10-20 [facility] Comment on above: Performed By: #### L 500.2500, L100.0100 ####[facility] [address] [place], [address] CA,Total 9.2 mg/dL Normal 8.5-10.1 [facility] Comment on above: Performed By: #### L 500.2500, L100.0100 ####[facility] [address] [place], [address] Chloride [Moles/Vol] 108 mmol/L High 98-107 [facility] Comment on above: Performed By: #### L 500.2500, L100.0100 ####[facility] [address] [place], [address] CO2 [Moles/Vol] 23.0 mmol/L Normal 21.0-32.0 [facility] Comment on above: Performed By: #### L 500.2500, L100.0100 ####[facility] [address] [place], [address] Creatinine [Mass/Vol] 0.63 mg/dL Normal 0.55-1.02 [facility] Comment on above: Result Comment: The validity of the calculated GFR GFRAA in patients over70 years has not been determined. Clinical correlation isessential. Performed By: #### L 500.2500, L100.0100 ####[facility] [address] [place], [address] ECRCL 50.48 ml/min Normal [facility] Comment on above: Performed By: #### L 500.2500, L100.0100 ####[facility] [address] [place], [address] EST GFR - AA 117 mL/min Normal >60 [facility] Comment on above: Result Comment: Afri can [place]orran GFR Calc Performed By: #### L 500.2500, L100.0100 ####[facility] [address] [place], [address] GAP 6 Normal 5-15 [facility] Comment on above: Performed By: #### L 500.2500, L100.0100 ####[facility] [address] [place], [address] GFR/1.73 sq M.predicted among non-blacks MDRD (S/P/Bld) [Vol rate/Area] 96 mL/min/{1.73_m2} Normal >60 [facility] Comment on above: Result Comment: Non- GFR Calc Performed By: #### L 500.2500, L100.0100 ####[facility] [address] [place], [address] Glucose [Mass/Vol] 88 mg/dL Normal 74-106 [facility] Comment on above: Performed By: #### L 500.2500, L100.0100 ####[facility] [address] [place], [address] Potassium [Moles/Vol] 4.1 mmol/L Normal 3.5-5.1 [facility] Comment on above: Performed By: #### L 500.2500, L100.0100 ####[facility] [address] [place], [address] Sodium [Moles/Vol] 137 mmol/L Normal 136-145 [facility] Comment on above: Performed By: #### L 500.2500, L100.0100 ####[facility] [address] [place], [address] Urea nitrogen [Mass/Vol] 14 mg/dL Normal 7-18 [facility] Comment on above: Performed By: #### L 500.2500, L100.0100 ####[facility] [address] [place], [address] CBC W/Diff, Automatedon 02- Absolute Lymph 1.29 X10 3/uL Normal 0.83-4.51 [facility] Comment on above: Performed By: #### L 500.2500, L100.0100 ####[facility] [address] [place], [address] Absolute Neut 2.8 X10 3/uL Normal 2.0-7.7 [facility] Comment on above: Performed By: #### L 500.2500, L100.0100 ####[facility] [address] [place], [address] Basophils/100 WBC (Bld) 0.8 % Normal 0-1 [facility] Comment on above: Performed By: #### L 500.2500, L100.0100 ####[facility] [address] [place], [address] Eosinophils/100 WBC (Bld) 3.2 % Normal 0-5 [facility] Comment on above: Performed By: #### L 500.2500, L100.0100 ####[facility] [address] [place], [address] Erythrocyte distribution width (RBC) [Ratio] 13.6 % Normal 11.6-14.6 [facility] Comment on above: Performed By: #### L 500.2500, L100.0100 ####[facility] [address] [place], [address] Hematocrit (Bld) [Volume fraction] 33.9 % Low 37-47 [facility] Comment on above: Performed By: #### L 500.2500, L100.0100 ####[facility] [address] [place], [address] Hemoglobin (Bld) [Mass/Vol] 11.0 g/dL Low 12.0-15. 0 [facility] Comment on above: Performed By: #### L 500.2500, L100.0100 ####[facility] [address] [place], [address] IG% 0.400 Normal 0.0-0.9 [facility] Comment on above: Result Comment: IG% - Immature Granulocytes (promyelocytes, myelocytes andmetamyelocytes) > 1% indicates that a LEFT SHIFT is Present. Performed By: #### L 500.2500, L100.0100 ####[facility] [address] [place], [address] Lymphocytes/100 WBC (Bld) 26.2 % Normal 19-41 [facility] Comment on above: Performed By: #### L 500.2500, L100.0100 ####[facility] [address] [place], [address] MCH (RBC) [Entitic mass] 32.2 pg High 27.0-32.0 [facility] Comment on above: Performed By: #### L 500.2500, L100.0100 ####[facility] [address] [place], [address] MCHC (RBC) [Mass/Vol] 32.4 g/dL Normal 32-36 [facility] Comment on above: Performed By: #### L 500.2500, L100.0100 ####[facility] [address] [place], [address] MCV (RBC) [Entitic vol] 99.1 fL High 81-99 [facility] Comment on above: Performed By: #### L 500.2500, L100.0100 ####[facility] [address] [place], [address] Monocytes/100 WBC (Bld) 12.4 % High 0-10 [facility] Comment on above: Performed By: #### L 500.2500, L100.0100 ####[facility] [address] [place], [address] Neutrophils/100 WBC (Bld) 57.0 % Normal 47-70 [facility] Comment on above: Performed By: #### L 500.2500, L100.0100 ####[facility] [address] [place], [address] Nucleated RBC (Bld) [#/Vol] 0 10*3/uL Normal 0-5 [facility] Comment on above: Performed By: #### L 500.2500, L100.0100 ####[facility] [address] [place], [address] Platelet mean volume (Bld) [Entitic vol] 9.3 fL Normal 6.2-12.0 [facility] Comment on above: Performed By: #### L 500.2500, L100.0100 ####[facility] [address] [place], [address] Platelets (Bld) [#/Vol] 196 10*3/uL Normal 150-450 [facility] Comment on above: Performed By: #### L 500.2500, L100.0100 ####[facility] [address] [place], [address] RBC (Bld) [#/Vol] 3.42 10*6/uL Low 4.2-5.4 [facility] Comment on above: Performed By: #### L 500.2500, L100.0100 ####[facility] [address] [place], [address] RDW SD 49.5 fl High 35.1-43.9 [facility] Comment on above: Performed By: #### L 500.2500, L100.0100 ####[facility] [address] [place], [address] WBC (Bld) [#/Vol] 4.9 10*3/uL Normal 4.4-11.0 [facility] Comment on above: Performed By: #### L 500.2500, L100.0100 ####[facility] [address] [place], [address] COVID 19 AG RAPID (ELIE Saini)on 05-12-2024 SARS-CoV-2 (COVID-19) RNA DALILA+probe Ql (Unsp spec) Normal [facility] Comment on above: Performed By: #### M 100.505 ####[facility] [address] [place], [address] COVID-19 virus antigen assay Ordered By: Michael Snowden on 05-12-2024 SARS-CoV-2 (COVID-19) Ag IA.rapid Ql (Resp) [facility] SARS-CoV-2 (COVID-19) Ag IA. rapid Ql (Resp)Ordered By: Michael Snowden on 05-12-2024 SARS-CoV-2 Antigen (Rapid) [facility] Basic Metabolic Profile (BMP )on 05-07-2024 BUN/CRE 23.5 RATIO High 10-20 [facility] Comment on above: Performed By: #### L 500.2500, L100.0100 ####[facility] [address] [place], [address] CA,Total 8.8 mg/dL Normal 8.5-10.1 [facility] Comment on above: Performed By: #### L 500.2500, L100.0100 ####[facility] [address] [place], [address] Chloride [Moles/Vol] 110 mmol/L High 98-107 [facility] Comment on above: Performed By: #### L 500.2500, L100.0100 ####[facility] [address] [place], [address] CO2 [Moles/Vol] 22.0 mmol/L Normal 21.0-32.0 [facility] Comment on above: Performed By: #### L 500.2500, L100.0100 ####[facility] [address] [place], [address] Creatinine [Mass/Vol] 0.64 mg/dL Normal 0.55-1.02 [facility] Comment on above: Result Comment: The validity of the calculated GFR GFRAA in patients over70 years has not been determined. Clinical correlation isessential. Performed By: #### L 500.2500, L100.0100 ####[facility] [address] [place], [address] ECRCL 50.29 ml/min Normal [facility] Comment on above: Performed By: #### L 500.2500, L100.0100 ####[facility] [address] [place], [address] EST GFR - AA 116 mL/min Normal >60 [facility] Comment on above: Result Comment: Afri can [place]ran GFR Calc Performed By: #### L 500.2500, L100.0100 ####[facility] [address] [place], [address] GAP 10 Normal 5-15 [facility] Comment on above: Performed By: #### L 500.2500, L100.0100 ####[facility] [address] [place], [address] GFR/1.73 sq M.predicted among non-blacks MDRD (S/P/Bld) [Vol rate/Area] 96 mL/min/{1.73_m2} Normal >60 [facility] Comment on above: Result Comment: Non- GFR Calc Performed By: #### L 500.2500, L100.0100 ####[facility] [address] [place], [address] Glucose [Mass/Vol] 94 mg/dL Normal 74-106 [facility] Comment on above: Performed By: #### L 500.2500, L100.0100 ####[facility] [address] [place], [address] Potassium [Moles/Vol] 4.1 mmol/L Normal 3.5-5.1 [facility] Comment on above: Performed By: #### L 500.2500, L100.0100 ####[facility] [address] [place], [address] Sodium [Moles/Vol] 142 mmol/L Normal 136-145 [facility] Comment on above: Performed By: #### L 500.2500, L100.0100 ####[facility] [address] [place], [address] Urea nitrogen [Mass/Vol] 15 mg/dL Normal 7-18 [facility] Comment on above: Performed By: #### L 500.2500, L100.0100 ####[facility] [address] [place], [address] CBC W/Diff, Automatedon 02-0 7-2024 Absolute Lymph 1.20 X10 3/uL Normal 0.83-4.51 [facility] Comment on above: Performed By: #### L 500.2500, L100.0100 ####[facility] [address] [place], [address] Absolute Neut 2.9 X10 3/uL Normal 2.0-7.7 [facility] Comment on above: Performed By: #### L 500.2500, L100.0100 ####[facility] [address] [place], [address] Basophils/100 WBC (Bld) 0.6 % Normal 0-1 [facility] Comment on above: Performed By: #### L 500.2500, L100.0100 ####[facility] [address] [place], [address] Eosinophils/100 WBC (Bld) 3.0 % Normal 0-5 [facility] Comment on above: Performed By: #### L 500.2500, L100.0100 ####[facility] [address] [place], [address] Erythrocyte distribution width (RBC) [Ratio] 13.7 % Normal 11.6-14.6 [facility] Comment on above: Performed By: #### L 500.2500, L100.0100 ####[facility] [address] [place], [address] Hematocrit (Bld) [Volume fraction] 35.3 % Low 37-47 [facility] Comment on above: Performed By: #### L 500.2500, L100.0100 ####[facility] [address] [place], [address] Hemoglobin (Bld) [Mass/Vol] 11.3 g/dL Low 12.0-15. 0 [facility] Comment on above: Performed By: #### L 500.2500, L100.0100 ####[facility] [address] [place], [address] IG% 0.200 Normal 0.0-0.9 [facility] Comment on above: Result Comment: IG% - Immature Granulocytes (promyelocytes, myelocytes andmetamyelocytes) > 1% indicates that a LEFT SHIFT is Present. Performed By: #### L 500.2500, L100.0100 ####[facility] [address] [place], [address] Lymphocytes/100 WBC (Bld) 25.4 % Normal 19-41 [facility] Comment on above: Performed By: #### L 500.2500, L100.0100 ####[facility] [address] [place], [address] MCH (RBC) [Entitic mass] 31.7 pg Normal 27.0-32.0 [facility] Comment on above: Performed By: #### L 500.2500, L100.0100 ####[facility] [address] [place], [address] MCHC (RBC) [Mass/Vol] 32.0 g/dL Normal 32-36 [facility] Comment on above: Performed By: #### L 500.2500, L100.0100 ####[facility] [address] [place], [address] MCV (RBC) [Entitic vol] 98.9 fL Normal 81-99 [facility] Comment on above: Performed By: #### L 500.2500, L100.0100 ####[facility] [address] [place], [address] Monocytes/100 WBC (Bld) 10.2 % High 0-10 [facility] Comment on above: Performed By: #### L 500.2500, L100.0100 ####[facility] [address] [place], [address] Neutrophils/100 WBC (Bld) 60.6 % Normal 47-70 [facility] Comment on above: Performed By: #### L 500.2500, L100.0100 ####[facility] [address] [place], [address] Nucleated RBC (Bld) [#/Vol] 0 10*3/uL Normal 0-5 [facility] Comment on above: Performed By: #### L 500.2500, L100.0100 ####[facility] [address] [place], [address] Platelet mean volume (Bld) [Entitic vol] 8.9 fL Normal 6.2-12.0 [facility] Comment on above: Performed By: #### L 500.2500, L100.0100 ####[facility] [address] [place], [address] Platelets (Bld) [#/Vol] 208 10*3/uL Normal 150-450 [facility] Comment on above: Performed By: #### L 500.2500, L100.0100 ####[facility] [address] [place], [address] RBC (Bld) [#/Vol] 3.57 10*6/uL Low 4.2-5.4 [facility] Comment on above: Performed By: #### L 500.2500, L100.0100 ####[facility] [address] [place], [address] RDW SD 50.4 fl High 35.1-43.9 [facility] Comment on above: Performed By: #### L 500.2500, L100.0100 ####[facility] [address] [place], [address] WBC (Bld) [#/Vol] 4.7 10*3/uL Normal 4.4-11.0 [facility] Comment on above: Performed By: #### L 500.2500, L100.0100 ####[facility] [address] [place], [address] Basic Metabolic Profile (BMP )on 04-30-2024 BUN/CRE 28.8 RATIO High 10-20 [facility] Comment on above: Performed By: #### L 100.0100, L500.2500 ####[facility] [address] [place], [address] CA,Total 8.9 mg/dL Normal 8.5-10.1 [facility] Comment on above: Performed By: #### L 100.0100, L500.2500 ####[facility] [address] [place], [address] Chloride [Moles/Vol] 112 mmol/L High 98-107 [facility] Comment on above: Performed By: #### L 100.0100, L500.2500 ####[facility] [address] [place], [address] CO2 [Moles/Vol] 22.0 mmol/L Normal 21.0-32.0 [facility] Comment on above: Performed By: #### L 100.0100, L500.2500 ####[facility] [address] [place], [address] Creatinine [Mass/Vol] 0.73 mg/dL Normal 0.55-1.02 [facility] Comment on above: Result Comment: The validity of the calculated GFR GFRAA in patients over70 years has not been determined. Clinical correlation isessential. Performed By: #### L 100.0100, L500.2500 ####[facility] [address] [place], [address] ECRCL 50.34 ml/min Normal [facility] Comment on above: Performed By: #### L 100.0100, L500.2500 ####[facility] [address] [place], [address] EST GFR - AA 99 mL/min Normal >60 [facility] Comment on above: Result Comment: Afri can [place]ran GFR Calc Performed By: #### L 100.0100, L500.2500 ####[facility] [address] [place], [address] GAP 5 Normal 5-15 [facility] Comment on above: Performed By: #### L 100.0100, L500.2500 ####[facility] [address] [place], [address] GFR/1.73 sq M.predicted among non-blacks MDRD (S/P/Bld) [Vol rate/Area] 82 mL/min/{1.73_m2} Normal >60 [facility] Comment on above: Result Comment: Non- GFR Calc Performed By: #### L 100.0100, L500.2500 ####[facility] [address] [place], [address] Glucose [Mass/Vol] 96 mg/dL Normal 74-106 [facility] Comment on above: Performed By: #### L 100.0100, L500.2500 ####[facility] [address] [place], [address] Potassium [Moles/Vol] 4.3 mmol/L Normal 3.5-5.1 [facility] Comment on above: Performed By: #### L 100.0100, L500.2500 ####[facility] [address] [place], [address] Sodium [Moles/Vol] 140 mmol/L Normal 136-145 [facility] Comment on above: Performed By: #### L 100.0100, L500.2500 ####[facility] [address] [place], [address] Urea nitrogen [Mass/Vol] 21 mg/dL High 7-18 [facility] Comment on above: Performed By: #### L 100.0100, L500.2500 ####[facility] [address] [place], [address] CBC W/Diff, Automatedon - Absolute Lymph 1.28 X10 3/uL Normal 0.83-4.51 [facility] Comment on above: Performed By: #### L 100.0100, L500.2500 ####[facility] [address] [place], [address] Absolute Neut 3.9 X10 3/uL Normal 2.0-7.7 [facility] Comment on above: Performed By: #### L 100.0100, L500.2500 ####[facility] [address] [place], [address] Basophils/100 WBC (Bld) 1.0 % Normal 0-1 [facility] Comment on above: Performed By: #### L 100.0100, L500.2500 ####[facility] [address] [place], [address] Eosinophils/100 WBC (Bld) 2.2 % Normal 0-5 [facility] Comment on above: Performed By: #### L 100.0100, L500.2500 ####[facility] [address] [place], [address] Erythrocyte distribution width (RBC) [Ratio] 13.9 % Normal 11.6-14.6 [facility] Comment on above: Performed By: #### L 100.0100, L500.2500 ####[facility] [address] [place], [address] Hematocrit (Bld) [Volume fraction] 36.1 % Low 37-47 [facility] Comment on above: Performed By: #### L 100.0100, L500.2500 ####[facility] [address] [place], [address] Hemoglobin (Bld) [Mass/Vol] 11.9 g/dL Low 12.0-15. 0 [facility] Comment on above: Performed By: #### L 100.0100, L500.2500 ####[facility] [address] [place], [address] IG% 0.500 Normal 0.0-0.9 [facility] Comment on above: Result Comment: IG% - Immature Granulocytes (promyelocytes, myelocytes andmetamyelocytes) > 1% indicates that a LEFT SHIFT is Present. Performed By: #### L 100.0100, L500.2500 ####[facility] [address] [place], [address] Lymphocytes/100 WBC (Bld) 21.3 % Normal 19-41 [facility] Comment on above: Performed By: #### L 100.0100, L500.2500 ####[facility] [address] [place], [address] MCH (RBC) [Entitic mass] 32.4 pg High 27.0-32.0 [facility] Comment on above: Performed By: #### L 100.0100, L500.2500 ####[facility] [address] [place], [address] MCHC (RBC) [Mass/Vol] 33.0 g/dL Normal 32-36 [facility] Comment on above: Performed By: #### L 100.0100, L500.2500 ####[facility] [address] [place], [address] MCV (RBC) [Entitic vol] 98.4 fL Normal 81-99 [facility] Comment on above: Performed By: #### L 100.0100, L500.2500 ####[facility] [address] [place], [address] Monocytes/100 WBC (Bld) 10.3 % High 0-10 [facility] Comment on above: Performed By: #### L 100.0100, L500.2500 ####[facility] [address] [place], [address] Neutrophils/100 WBC (Bld) 64.7 % Normal 47-70 [facility] Comment on above: Performed By: #### L 100.0100, L500.2500 ####[facility] [address] [place], [address] Nucleated RBC (Bld) [#/Vol] 0 10*3/uL Normal 0-5 [facility] Comment on above: Performed By: #### L 100.0100, L500.2500 ####[facility] [address] [place], [address] Platelet mean volume (Bld) [Entitic vol] 8.8 fL Normal 6.2-12.0 [facility] Comment on above: Performed By: #### L 100.0100, L500.2500 ####[facility] [address] [place], [address] Platelets (Bld) [#/Vol] 265 10*3/uL Normal 150-450 [facility] Comment on above: Performed By: #### L 100.0100, L500.2500 ####[facility] [address] [place], [address] RBC (Bld) [#/Vol] 3.67 10*6/uL Low 4.2-5.4 [facility] Comment on above: Performed By: #### L 100.0100, L500.2500 ####[facility] [address] [place], [address] RDW SD 50.2 fl High 35.1-43.9 [facility] Comment on above: Performed By: #### L 100.0100, L500.2500 ####[facility] [address] [place], [address] WBC (Bld) [#/Vol] 6.0 10*3/uL Normal 4.4-11.0 [facility] Comment on above: Performed By: #### L 100.0100, L500.2500 ####[facility] [address] [place], [address] Basic Metabolic Profile (BMP )on 04-23-2024 BUN/CRE 33.6 RATIO High 10-20 [facility] Comment on above: Performed By: #### L 100.0100, L500.2500 ####[facility] [address] [place], [address] CA,Total 8.8 mg/dL Normal 8.5-10.1 [facility] Comment on above: Performed By: #### L 100.0100, L500.2500 ####[facility] [address] [place], [address] Chloride [Moles/Vol] 108 mmol/L High 98-107 [facility] Comment on above: Performed By: #### L 100.0100, L500.2500 ####[facility] [address] [place], [address] CO2 [Moles/Vol] 22.0 mmol/L Normal 21.0-32.0 [facility] Comment on above: Performed By: #### L 100.0100, L500.2500 ####[facility] [address] [place], [address] Creatinine [Mass/Vol] 0.68 mg/dL Normal 0.55-1.02 [facility] Comment on above: Result Comment: The validity of the calculated GFR GFRAA in patients over70 years has not been determined. Clinical correlation isessential. Performed By: #### L 100.0100, L500.2500 ####[facility] [address] [place], [address] ECRCL 50.54 ml/min Normal [facility] Comment on above: Performed By: #### L 100.0100, L500.2500 ####[facility] [address] [place], [address] EST GFR - AA 107 mL/min Normal >60 [facility] Comment on above: Result Comment: Afri can [place]ran GFR Calc Performed By: #### L 100.0100, L500.2500 ####[facility] [address] [place], [address] GAP 6 Normal 5-15 [facility] Comment on above: Performed By: #### L 100.0100, L500.2500 ####[facility] [address] [place], [address] GFR/1.73 sq M.predicted among non-blacks MDRD (S/P/Bld) [Vol rate/Area] 88 mL/min/{1.73_m2} Normal >60 [facility] Comment on above: Result Comment: Non- GFR Calc Performed By: #### L 100.0100, L500.2500 ####[facility] [address] [place], [address] Glucose [Mass/Vol] 97 mg/dL Normal 74-106 [facility] Comment on above: Performed By: #### L 100.0100, L500.2500 ####[facility] [address] [place], [address] Potassium [Moles/Vol] 4.6 mmol/L Normal 3.5-5.1 [facility] Comment on above: Performed By: #### L 100.0100, L500.2500 ####[facility] [address] [place], [address] Sodium [Moles/Vol] 136 mmol/L Normal 136-145 [facility] Comment on above: Performed By: #### L 100.0100, L500.2500 ####[facility] [address] [place], [address] Urea nitrogen [Mass/Vol] 23 mg/dL High 7-18 [facility] Comment on above: Performed By: #### L 100.0100, L500.2500 ####[facility] [address] [place], [address] CBC W/Diff, Automatedon 04-01 Absolute Lymph 1.47 X10 3/uL Normal 0.83-4.51 [facility] Comment on above: Performed By: #### L 100.0100, L500.2500 ####[facility] [address] [place], [address] Absolute Neut 4.2 X10 3/uL Normal 2.0-7.7 [facility] Comment on above: Performed By: #### L 100.0100, L500.2500 ####[facility] [address] [place], [address] Basophils/100 WBC (Bld) 0.6 % Normal 0-1 [facility] Comment on above: Performed By: #### L 100.0100, L500.2500 ####[facility] [address] [place], [address] Eosinophils/100 WBC (Bld) 2.1 % Normal 0-5 [facility] Comment on above: Performed By: #### L 100.0100, L500.2500 ####[facility] [address] [place], [address] Erythrocyte distribution width (RBC) [Ratio] 13.2 % Normal 11.6-14.6 [facility] Comment on above: Performed By: #### L 100.0100, L500.2500 ####[facility] [address] [place], [address] Hematocrit (Bld) [Volume fraction] 34.8 % Low 37-47 [facility] Comment on above: Performed By: #### L 100.0100, L500.2500 ####[facility] [address] [place], [address] Hemoglobin (Bld) [Mass/Vol] 11.5 g/dL Low 12.0-15. 0 [facility] Comment on above: Performed By: #### L 100.0100, L500.2500 ####[facility] [address] [place], [address] IG% 2.400 High 0.0-0.9 [facility] Comment on above: Result Comment: IG% - Immature Granulocytes (promyelocytes, myelocytes andmetamyelocytes) > 1% indicates that a LEFT SHIFT is Present. Performed By: #### L 100.0100, L500.2500 ####[facility] [address] [place], [address] Lymphocytes/100 WBC (Bld) 22.0 % Normal 19-41 [facility] Comment on above: Performed By: #### L 100.0100, L500.2500 ####[facility] [address] [place], [address] MCH (RBC) [Entitic mass] 32.5 pg High 27.0-32.0 [facility] Comment on above: Performed By: #### L 100.0100, L500.2500 ####[facility] [address] [place], [address] MCHC (RBC) [Mass/Vol] 33.0 g/dL Normal 32-36 [facility] Comment on above: Performed By: #### L 100.0100, L500.2500 ####[facility] [address] [place], [address] MCV (RBC) [Entitic vol] 98.3 fL Normal 81-99 [facility] Comment on above: Performed By: #### L 100.0100, L500.2500 ####[facility] [address] [place], [address] Monocytes/100 WBC (Bld) 10.3 % High 0-10 [facility] Comment on above: Performed By: #### L 100.0100, L500.2500 ####[facility] [address] [place], [address] Neutrophils/100 WBC (Bld) 62.6 % Normal 47-70 [facility] Comment on above: Performed By: #### L 100.0100, L500.2500 ####[facility] [address] [place], [address] Nucleated RBC (Bld) [#/Vol] 0 10*3/uL Normal 0-5 [facility] Comment on above: Performed By: #### L 100.0100, L500.2500 ####[facility] [address] [place], [address] Platelet mean volume (Bld) [Entitic vol] 9.0 fL Normal 6.2-12.0 [facility] Comment on above: Performed By: #### L 100.0100, L500.2500 ####[facility] [address] [place], [address] Platelets (Bld) [#/Vol] 263 10*3/uL Normal 150-450 [facility] Comment on above: Performed By: #### L 100.0100, L500.2500 ####[facility] [address] [place], [address] RBC (Bld) [#/Vol] 3.54 10*6/uL Low 4.2-5.4 [facility] Comment on above: Performed By: #### L 100.0100, L500.2500 ####[facility] [address] [place], [address] RDW SD 47.7 fl High 35.1-43.9 [facility] Comment on above: Performed By: #### L 100.0100, L500.2500 ####[facility] [address] [place], [address] WBC (Bld) [#/Vol] 6.7 10*3/uL Normal 4.4-11.0 [facility] Comment on above: Performed By: #### L 100.0100, L500.2500 ####[facility] [address] [place], [address] Basic Metabolic Profile (BMP )on 04-19-2024 BUN Normal -18 [facility] Comment on above: Result Comment: Canc elled via OM: Order cancelled - Patient discharged Performed By: #### L 100.0500, L500.2500 ####[facility] [address] [place], [address] BUN/CRE Normal -20 [facility] Comment on above: Result Comment: Canc elled via OM: Order cancelled - Patient discharged Performed By: #### L 100.0500, L500.2500 ####[facility] [address] [place], [address] CA,Total Normal 8.5-10.1 [facility] Comment on above: Result Comment: Canc elled via OM: Order cancelled - Patient discharged Performed By: #### L 100.0500, L500.2500 ####[facility] [address] [place], [address] CL Normal 98-107 [facility] Comment on above: Result Comment: Canc elled via OM: Order cancelled - Patient discharged Performed By: #### L 100.0500, L500.2500 ####[facility] [address] [place], [address] CO2 Normal 21.0-32.0 [facility] Comment on above: Result Comment: Canc elled via OM: Order cancelled - Patient discharged Performed By: #### L 100.0500, L500.2500 ####[facility] [address] [place], [address] CREAT,SERUM Normal 0.55-1.02 [facility] Comment on above: Result Comment: Canc elled via OM: Order cancelled - Patient discharged Performed By: #### L 100.0500, L500.2500 ####[facility] [address] [place], [address] EST GFR Normal >60 [facility] Comment on above: Result Comment: Canc elled via OM: Order cancelled - Patient discharged Performed By: #### L 100.0500, L500.2500 ####[facility] [address] [place], [address] EST GFR - AA Normal >60 [facility] Comment on above: Result Comment: Canc elled via OM: Order cancelled - Patient discharged Performed By: #### L 100.0500, L500.2500 ####[facility] [address] [place], [address] GAP Normal 5-15 [facility] Comment on above: Result Comment: Canc elled via OM: Order cancelled - Patient discharged Performed By: #### L 100.0500, L500.2500 ####[facility] [address] [place], [address] GLU Normal 74-106 [facility] Comment on above: Result Comment: Canc elled via OM: Order cancelled - Patient discharged Performed By: #### L 100.0500, L500.2500 ####[facility] [address] [place], [address] Potassium Normal 3.5-5.1 [facility] Comment on above: Result Comment: Canc elled via OM: Order cancelled - Patient discharged Performed By: #### L 100.0500, L500.2500 ####[facility] [address] [place], [address] Basic Metabolic Profile (BMP) Normal 136-145 [facility] Comment on above: Result Comment: Canc elled via OM: Order cancelled - Patient discharged Performed By: #### L 100.0500, L500.2500 ####[facility] [address] [place], [address] CBC-Complete Blood Cnt No Di ffon 04-19-2024 HCT Normal 37-47 [facility] Comment on above: Result Comment: Canc elled via OM: Order cancelled - Patient discharged Performed By: #### L 100.0500, L500.2500 ####[facility] [address] [place], [address] HGB Normal 12.0-15.0 [facility] Comment on above: Result Comment: Canc elled via OM: Order cancelled - Patient discharged Performed By: #### L 100.0500, L500.2500 ####[facility] [address] [place], [address] MCH Normal 27.0-32.0 [facility] Comment on above: Result Comment: Canc elled via OM: Order cancelled - Patient discharged Performed By: #### L 100.0500, L500.2500 ####[facility] [address] [place], [address] MCHC Normal 32-36 [facility] Comment on above: Result Comment: Canc elled via OM: Order cancelled - Patient discharged Performed By: #### L 100.0500, L500.2500 ####[facility] [address] [place], [address] MCV Normal 81-99 [facility] Comment on above: Result Comment: Canc elled via OM: Order cancelled - Patient discharged Performed By: #### L 100.0500, L500.2500 ####[facility] [address] [place], [address] PLT Normal 150-450 [facility] Comment on above: Result Comment: Canc elled via OM: Order cancelled - Patient discharged Performed By: #### L 100.0500, L500.2500 ####[facility] [address] [place], [address] RBC Normal 4.2-5.4 [facility] Comment on above: Result Comment: Canc elled via OM: Order cancelled - Patient discharged Performed By: #### L 100.0500, L500.2500 ####[facility] [address] [place], [address] RDW CV Normal 11.6-14.6 [facility] Comment on above: Result Comment: Canc elled via OM: Order cancelled - Patient discharged Performed By: #### L 100.0500, L500.2500 ####[facility] [address] [place], [address] RDW SD Normal 35.1-43.9 [facility] Comment on above: Result Comment: Canc elled via OM: Order cancelled - Patient discharged Performed By: #### L 100.0500, L500.2500 ####[facility] [address] [place], [address] WBC Normal 4.4-11.0 [facility] Comment on above: Result Comment: Canc elled via OM: Order cancelled - Patient discharged Performed By: #### L 100.0500, L500.2500 ####[facility] [address] [place], [address] Basic Metabolic Profile (BMP )on 04-18-2024 BUN Normal 7-18 [facility] Comment on above: Result Comment: Canc elled via OM: Order cancelled - Patient discharged Performed By: #### L 100.0500, L500.2500 ####[facility] [address] [place], [address] BUN/CRE Normal 10-20 [facility] Comment on above: Result Comment: Canc elled via OM: Order cancelled - Patient discharged Performed By: #### L 100.0500, L500.2500 ####[facility] [address] [place], [address] CA,Total Normal 8.5-10.1 [facility] Comment on above: Result Comment: Canc elled via OM: Order cancelled - Patient discharged Performed By: #### L 100.0500, L500.2500 ####[facility] [address] [place], [address] CL Normal 98-107 [facility] Comment on above: Result Comment: Canc elled via OM: Order cancelled - Patient discharged Performed By: #### L 100.0500, L500.2500 ####[facility] [address] [place], [address] CO2 Normal 21.0-32.0 [facility] Comment on above: Result Comment: Canc elled via OM: Order cancelled - Patient discharged Performed By: #### L 100.0500, L500.2500 ####[facility] [address] [place], [address] CREAT,SERUM Normal 0.55-1.02 [facility] Comment on above: Result Comment: Canc elled via OM: Order cancelled - Patient discharged Performed By: #### L 100.0500, L500.2500 ####[facility] [address] [place], [address] EST GFR Normal >60 [facility] Comment on above: Result Comment: Canc elled via OM: Order cancelled - Patient discharged Performed By: #### L 100.0500, L500.2500 ####[facility] [address] [place], [address] EST GFR - AA Normal >60 [facility] Comment on above: Result Comment: Canc elled via OM: Order cancelled - Patient discharged Performed By: #### L 100.0500, L500.2500 ####[facility] [address] [place], [address] GAP Normal 5-15 [facility] Comment on above: Result Comment: Canc elled via OM: Order cancelled - Patient discharged Performed By: #### L 100.0500, L500.2500 ####[facility] [address] [place], [address] GLU Normal 74-106 [facility] Comment on above: Result Comment: Canc elled via OM: Order cancelled - Patient discharged Performed By: #### L 100.0500, L500.2500 ####[facility] [address] [place], [address] Potassium Normal 3.5-5.1 [facility] Comment on above: Result Comment: Canc elled via OM: Order cancelled - Patient discharged Performed By: #### L 100.0500, L500.2500 ####[facility] [address] [place], [address] Basic Metabolic Profile (BMP) Normal 136-145 [facility] Comment on above: Result Comment: Canc elled via OM: Order cancelled - Patient discharged Performed By: #### L 100.0500, L500.2500 ####[facility] [address] [place], [address] CBC-Complete Blood Cnt No Di ffon 04-18-2024 HCT Normal 37-47 [facility] Comment on above: Result Comment: Canc elled via OM: Order cancelled - Patient discharged Performed By: #### L 100.0500, L500.2500 ####[facility] [address] [place], [address] HGB Normal 12.0-15.0 [facility] Comment on above: Result Comment: Canc elled via OM: Order cancelled - Patient discharged Performed By: #### L 100.0500, L500.2500 ####[facility] [address] [place], [address] MCH Normal 27.0-32.0 [facility] Comment on above: Result Comment: Canc elled via OM: Order cancelled - Patient discharged Performed By: #### L 100.0500, L500.2500 ####[facility] [address] [place], [address] MCHC Normal 32-36 [facility] Comment on above: Result Comment: Canc elled via OM: Order cancelled - Patient discharged Performed By: #### L 100.0500, L500.2500 ####[facility] [address] [place], [address] MCV Normal 81-99 [facility] Comment on above: Result Comment: Canc elled via OM: Order cancelled - Patient discharged Performed By: #### L 100.0500, L500.2500 ####[facility] [address] [place], [address] PLT Normal 150-450 [facility] Comment on above: Result Comment: Canc elled via OM: Order cancelled - Patient discharged Performed By: #### L 100.0500, L500.2500 ####[facility] [address] [place], [address] RBC Normal 4.2-5.4 [facility] Comment on above: Result Comment: Canc elled via OM: Order cancelled - Patient discharged Performed By: #### L 100.0500, L500.2500 ####[facility] [address] [place], [address] RDW CV Normal 11.6-14.6 [facility] Comment on above: Result Comment: Canc elled via OM: Order cancelled - Patient discharged Performed By: #### L 100.0500, L500.2500 ####[facility] [address] [place], [address] RDW SD Normal 35.1-43.9 [facility] Comment on above: Result Comment: Canc elled via OM: Order cancelled - Patient discharged Performed By: #### L 100.0500, L500.2500 ####[facility] [address] [place], [address] WBC Normal 4.4-11.0 [facility] Comment on above: Result Comment: Canc elled via OM: Order cancelled - Patient discharged Performed By: #### L 100.0500, L500.2500 ####[facility] [address] [place], [address] Basic Metabolic Profile (BMP )on 04-17-2024 BUN Normal 7-18 [facility] Comment on above: Result Comment: Canc elled via OM: Order cancelled - Patient discharged Performed By: #### L 500.2500, L100.0500 ####[facility] [address] [place], [address] BUN/CRE Normal 10-20 [facility] Comment on above: Result Comment: Canc elled via OM: Order cancelled - Patient discharged Performed By: #### L 500.2500, L100.0500 ####[facility] [address] [place], [address] CA,Total Normal 8.5-10.1 [facility] Comment on above: Result Comment: Canc elled via OM: Order cancelled - Patient discharged Performed By: #### L 500.2500, L100.0500 ####[facility] [address] [place], [address] CL Normal 98-107 [facility] Comment on above: Result Comment: Canc elled via OM: Order cancelled - Patient discharged Performed By: #### L 500.2500, L100.0500 ####[facility] [address] [place], [address] CO2 Normal 21.0-32.0 [facility] Comment on above: Result Comment: Canc elled via OM: Order cancelled - Patient discharged Performed By: #### L 500.2500, L100.0500 ####[facility] [address] [place], [address] CREAT,SERUM Normal 0.55-1.02 [facility] Comment on above: Result Comment: Canc elled via OM: Order cancelled - Patient discharged Performed By: #### L 500.2500, L100.0500 ####[facility] [address] [place], [address] EST GFR Normal >60 [facility] Comment on above: Result Comment: Canc elled via OM: Order cancelled - Patient discharged Performed By: #### L 500.2500, L100.0500 ####[facility] [address] [place], [address] EST GFR - AA Normal >60 [facility] Comment on above: Result Comment: Canc elled via OM: Order cancelled - Patient discharged Performed By: #### L 500.2500, L100.0500 ####[facility] [address] [place], [address] GAP Normal 5-15 [facility] Comment on above: Result Comment: Canc elled via OM: Order cancelled - Patient discharged Performed By: #### L 500.2500, L100.0500 ####[facility] [address] [place], [address] GLU Normal 74-106 [facility] Comment on above: Result Comment: Canc elled via OM: Order cancelled - Patient discharged Performed By: #### L 500.2500, L100.0500 ####[facility] [address] [place], [address] Potassium Normal 3.5-5.1 [facility] Comment on above: Result Comment: Canc elled via OM: Order cancelled - Patient discharged Performed By: #### L 500.2500, L100.0500 ####[facility] [address] [place], [address] Basic Metabolic Profile (BMP) Normal 136-145 [facility] Comment on above: Result Comment: Canc elled via OM: Order cancelled - Patient discharged Performed By: #### L 500.2500, L100.0500 ####[facility] [address] [place], [address] BUN/CRE 36.8 RATIO High 10-20 [facility] Comment on above: Performed By: #### L 100.0100, L500.2500 ####[facility] [address] [place], [address] CA,Total 8.9 mg/dL Normal 8.5-10.1 [facility] Comment on above: Performed By: #### L 100.0100, L500.2500 ####[facility] [address] [place], [address] Chloride [Moles/Vol] 106 mmol/L Normal 98-107 [facility] Comment on above: Performed By: #### L 100.0100, L500.2500 ####[facility] [address] [place], [address] CO2 [Moles/Vol] 23.0 mmol/L Normal 21.0-32.0 [facility] Comment on above: Performed By: #### L 100.0100, L500.2500 ####[facility] [address] [place], [address] Creatinine [Mass/Vol] 0.71 mg/dL Normal 0.55-1.02 [facility] Comment on above: Result Comment: The validity of the calculated GFR GFRAA in patients over70 years has not been determined. Clinical correlation isessential. Performed By: #### L 100.0100, L500.2500 ####[facility] [address] [place], [address] ECRCL 50.11 ml/min Normal [facility] Comment on above: Performed By: #### L 100.0100, L500.2500 ####[facility] [address] [place], [address] EST GFR - AA 103 mL/min Normal >60 [facility] Comment on above: Result Comment: Afri can [place]ran GFR Calc Performed By: #### L 100.0100, L500.2500 ####[facility] [address] [place], [address] GAP 6 Normal 5-15 [facility] Comment on above: Performed By: #### L 100.0100, L500.2500 ####[facility] [address] [place], [address] GFR/1.73 sq M.predicted among non-blacks MDRD (S/P/Bld) [Vol rate/Area] 85 mL/min/{1.73_m2} Normal >60 [facility] Comment on above: Result Comment: Non- GFR Calc Performed By: #### L 100.0100, L500.2500 ####[facility] [address] [place], [address] Glucose [Mass/Vol] 108 mg/dL High 74-106 [facility] Comment on above: Result Comment: Fast ing Glucose result from 100 to 125 mg/dLsuggests IMPAIRED HOMEOSTASIS per A.D.A. criteria. Performed By: #### L 100.0100, L500.2500 ####[facility] [address] [place], [address] Potassium [Moles/Vol] 4.2 mmol/L Normal 3.5-5.1 [facility] Comment on above: Performed By: #### L 100.0100, L500.2500 ####[facility] [address] [place], [address] Sodium [Moles/Vol] 135 mmol/L Low 136-145 [facility] Comment on above: Performed By: #### L 100.0100, L500.2500 ####[facility] [address] [place], [address] Urea nitrogen [Mass/Vol] 26 mg/dL High 7-18 [facility] Comment on above: Performed By: #### L 100.0100, L500.2500 ####[facility] [address] [place], [address] CBC W/Diff, Automatedon 03-31 Absolute Lymph 1.39 X10 3/uL Normal 0.83-4.51 [facility] Comment on above: Performed By: #### L 100.0100, L500.2500 ####[facility] [address] [place], [address] Absolute Neut 5.3 X10 3/uL Normal 2.0-7.7 [facility] Comment on above: Performed By: #### L 100.0100, L500.2500 ####[facility] [address] [place], [address] Basophils/100 WBC (Bld) 0.3 % Normal 0-1 [facility] Comment on above: Performed By: #### L 100.0100, L500.2500 ####[facility] [address] [place], [address] Eosinophils/100 WBC (Bld) 0.3 % Normal 0-5 [facility] Comment on above: Performed By: #### L 100.0100, L500.2500 ####[facility] [address] [place], [address] Erythrocyte distribution width (RBC) [Ratio] 13.0 % Normal 11.6-14.6 [facility] Comment on above: Performed By: #### L 100.0100, L500.2500 ####[facility] [address] [place], [address] Hematocrit (Bld) [Volume fraction] 35.2 % Low 37-47 [facility] Comment on above: Performed By: #### L 100.0100, L500.2500 ####[facility] [address] [place], [address] Hemoglobin (Bld) [Mass/Vol] 11.4 g/dL Low 12.0-15. 0 [facility] Comment on above: Performed By: #### L 100.0100, L500.2500 ####[facility] [address] [place], [address] IG% 0.300 Normal 0.0-0.9 [facility] Comment on above: Result Comment: IG% - Immature Granulocytes (promyelocytes, myelocytes andmetamyelocytes) > 1% indicates that a LEFT SHIFT is Present. Performed By: #### L 100.0100, L500.2500 ####[facility] [address] [place], [address] Lymphocytes/100 WBC (Bld) 18.8 % Low 19-41 [facility] Comment on above: Performed By: #### L 100.0100, L500.2500 ####[facility] [address] [place], [address] MCH (RBC) [Entitic mass] 31.7 pg Normal 27.0-32.0 [facility] Comment on above: Performed By: #### L 100.0100, L500.2500 ####[facility] [address] [place], [address] MCHC (RBC) [Mass/Vol] 32.4 g/dL Normal 32-36 [facility] Comment on above: Performed By: #### L 100.0100, L500.2500 ####[facility] [address] [place], [address] MCV (RBC) [Entitic vol] 97.8 fL Normal 81-99 [facility] Comment on above: Performed By: #### L 100.0100, L500.2500 ####[facility] [address] [place], [address] Monocytes/100 WBC (Bld) 8.3 % Normal 0-10 [facility] Comment on above: Performed By: #### L 100.0100, L500.2500 ####[facility] [address] [place], [address] Neutrophils/100 WBC (Bld) 72.0 % High 47-70 [facility] Comment on above: Performed By: #### L 100.0100, L500.2500 ####[facility] [address] [place], [address] Nucleated RBC (Bld) [#/Vol] 0 10*3/uL Normal 0-5 [facility] Comment on above: Performed By: #### L 100.0100, L500.2500 ####[facility] [address] [place], [address] Platelet mean volume (Bld) [Entitic vol] 9.0 fL Normal 6.2-12.0 [facility] Comment on above: Performed By: #### L 100.0100, L500.2500 ####[facility] [address] [place], [address] Platelets (Bld) [#/Vol] 261 10*3/uL Normal 150-450 [facility] Comment on above: Performed By: #### L 100.0100, L500.2500 ####[facility] [address] [place], [address] RBC (Bld) [#/Vol] 3.60 10*6/uL Low 4.2-5.4 [facility] Comment on above: Performed By: #### L 100.0100, L500.2500 ####[facility] [address] [place], [address] RDW SD 46.8 fl High 35.1-43.9 [facility] Comment on above: Performed By: #### L 100.0100, L500.2500 ####[facility] [address] [place], [address] WBC (Bld) [#/Vol] 7.4 10*3/uL Normal 4.4-11.0 [facility] Comment on above: Performed By: #### L 100.0100, L500.2500 ####[facility] [address] [place], [address] CBC-Complete Blood Cnt No Di ffon 04-17-2024 HCT Normal 37-47 [facility] Comment on above: Result Comment: Canc elled via OM: Order cancelled - Patient discharged Performed By: #### L 500.2500, L100.0500 ####[facility] [address] [place], [address] HGB Normal 12.0-15.0 [facility] Comment on above: Result Comment: Canc elled via OM: Order cancelled - Patient discharged Performed By: #### L 500.2500, L100.0500 ####[facility] [address] [place], [address] MCH Normal 27.0-32.0 [facility] Comment on above: Result Comment: Canc elled via OM: Order cancelled - Patient discharged Performed By: #### L 500.2500, L100.0500 ####[facility] [address] [place], [address] MCHC Normal 32-36 [facility] Comment on above: Result Comment: Canc elled via OM: Order cancelled - Patient discharged Performed By: #### L 500.2500, L100.0500 ####[facility] [address] [place], [address] MCV Normal 81-99 [facility] Comment on above: Result Comment: Canc elled via OM: Order cancelled - Patient discharged Performed By: #### L 500.2500, L100.0500 ####[facility] [address] [place], [address] PLT Normal 150-450 [facility] Comment on above: Result Comment: Canc elled via OM: Order cancelled - Patient discharged Performed By: #### L 500.2500, L100.0500 ####[facility] [address] [place], [address] RBC Normal 4.2-5.4 [facility] Comment on above: Result Comment: Canc elled via OM: Order cancelled - Patient discharged Performed By: #### L 500.2500, L100.0500 ####[facility] [address] [place], [address] RDW CV Normal 11.6-14.6 [facility] Comment on above: Result Comment: Canc elled via OM: Order cancelled - Patient discharged Performed By: #### L 500.2500, L100.0500 ####[facility] [address] [place], [address] RDW SD Normal 35.1-43.9 [facility] Comment on above: Result Comment: Canc elled via OM: Order cancelled - Patient discharged Performed By: #### L 500.2500, L100.0500 ####[facility] [address] [place], [address] WBC Normal 4.4-11.0 [facility] Comment on above: Result Comment: Canc elled via OM: Order cancelled - Patient discharged Performed By: #### L 500.2500, L100.0500 ####[facility] [address] [place], [address] Basic Metabolic Profile (BMP )on 04-16-2024 BUN/CRE 31.0 RATIO High 10-20 [facility] Comment on above: Performed By: #### L 500.2500, L100.0500 ####[facility] [address] [place], [address] CA,Total 9.3 mg/dL Normal 8.5-10.1 [facility] Comment on above: Performed By: #### L 500.2500, L100.0500 ####[facility] [address] [place], [address] Chloride [Moles/Vol] 107 mmol/L Normal 98-107 [facility] Comment on above: Performed By: #### L 500.2500, L100.0500 ####[facility] [address] [place], [address] CO2 [Moles/Vol] 25.0 mmol/L Normal 21.0-32.0 [facility] Comment on above: Performed By: #### L 500.2500, L100.0500 ####[facility] [address] [place], [address] Creatinine [Mass/Vol] 0.68 mg/dL Normal 0.55-1.02 [facility] Comment on above: Result Comment: The validity of the calculated GFR GFRAA in patients over70 years has not been determined. Clinical correlation isessential. Performed By: #### L 500.2500, L100.0500 ####[facility] [address] [place], [address] ECRCL 50.81 ml/min Normal [facility] Comment on above: Performed By: #### L 500.2500, L100.0500 ####[facility] [address] [place], [address] EST GFR - AA 108 mL/min Normal >60 [facility] Comment on above: Result Comment: Afri can [place]orran GFR Calc Performed By: #### L 500.2500, L100.0500 ####[facility] [address] [place], [address] GAP 5 Normal 5-15 [facility] Comment on above: Performed By: #### L 500.2500, L100.0500 ####[facility] [address] [place], [address] GFR/1.73 sq M.predicted among non-blacks MDRD (S/P/Bld) [Vol rate/Area] 89 mL/min/{1.73_m2} Normal >60 [facility] Comment on above: Result Comment: Non- GFR Calc Performed By: #### L 500.2500, L100.0500 ####[facility] [address] [place], [address] Glucose [Mass/Vol] 113 mg/dL High 74-106 [facility] Comment on above: Result Comment: Fast ing Glucose result from 100 to 125 mg/dLsuggests IMPAIRED HOMEOSTASIS per A.D.A. criteria. Performed By: #### L 500.2500, L100.0500 ####[facility] [address] [place], [address] Potassium [Moles/Vol] 4.5 mmol/L Normal 3.5-5.1 [facility] Comment on above: Performed By: #### L 500.2500, L100.0500 ####[facility] [address] [place], [address] Sodium [Moles/Vol] 137 mmol/L Normal 136-145 [facility] Comment on above: Performed By: #### L 500.2500, L100.0500 ####[facility] [address] [place], [address] Urea nitrogen [Mass/Vol] 21 mg/dL High 7-18 [facility] Comment on above: Performed By: #### L 500.2500, L100.0500 ####[facility] [address] [place], [address] Blood urea nitrogen (BUN)/cr eatinine ratioOrdered By: Lesli Watkins on 04-16-2024 Urea nitrogen/Creatinine [Mass ratio] 31.0 mg/mg High 10-20 [facility] Blood urea nitrogen (BUN)/creatinine ratio 31.0 RATIO High 10-20 [facility] CBC-Complete Blood Cnt No Di ffon 04-16-2024 Erythrocyte distribution width (RBC) [Ratio] 13.0 % Normal 11.6-14.6 [facility] Comment on above: Performed By: #### L 500.2500, L100.0500 ####[facility] [address] [place], [address] Hematocrit (Bld) [Volume fraction] 36.8 % Low 37-47 [facility] Comment on above: Performed By: #### L 500.2500, L100.0500 ####[facility] [address] [place], [address] Hemoglobin (Bld) [Mass/Vol] 11.9 g/dL Low 12.0-15. 0 [facility] Comment on above: Performed By: #### L 500.2500, L100.0500 ####[facility] [address] [place], [address] MCH (RBC) [Entitic mass] 31.6 pg Normal 27.0-32.0 [facility] Comment on above: Performed By: #### L 500.2500, L100.0500 ####[facility] [address] [place], [address] MCHC (RBC) [Mass/Vol] 32.3 g/dL Normal 32-36 [facility] Comment on above: Performed By: #### L 500.2500, L100.0500 ####[facility] [address] [place], [address] MCV (RBC) [Entitic vol] 97.6 fL Normal 81-99 [facility] Comment on above: Performed By: #### L 500.2500, L100.0500 ####[facility] [address] [place], [address] Platelet mean volume (Bld) [Entitic vol] 8.8 fL Normal 6.2-12.0 [facility] Comment on above: Performed By: #### L 500.2500, L100.0500 ####[facility] [address] [place], [address] Platelets (Bld) [#/Vol] 252 10*3/uL Normal 150-450 [facility] Comment on above: Performed By: #### L 500.2500, L100.0500 ####[facility] [address] [place], [address] RBC (Bld) [#/Vol] 3.77 10*6/uL Low 4.2-5.4 [facility] Comment on above: Performed By: #### L 500.2500, L100.0500 ####[facility] [address] [place], [address] RDW SD 46.3 fl High 35.1-43.9 [facility] Comment on above: Performed By: #### L 500.2500, L100.0500 ####[facility] [address] [place], [address] WBC (Bld) [#/Vol] 8.7 10*3/uL Normal 4.4-11.0 [facility] Comment on above: Performed By: #### L 500.2500, L100.0500 ####[facility] [address] [place], [place], [address] Calcium [Mass/Vol]Ordered By : Lesli Watkins on 04-16-2024 Serum or plasma calcium measurement (mass/volume) 9.3 mg/dL 8.5-10.1 [facility] Carbon dioxide measurementOr dered By: Lesli Watkins on 04-16-2024 CO2 [Moles/Vol] 25.0 mmol/L 21.0-32.0 [facility] Carbon dioxide measurement 25.0 mmol/L 21.0-32. 0 [facility] Chloride measurementOrdered By: Lesli Watkins on 04-16-2024 Chloride [Moles/Vol] 107 mmol/L 98-107 [facility] Chloride measurement 107 mmol/L 98-107 [facility] Creatinine [Mass/Vol]Ordered By: Lesli Watkins on 04-16-2024 Serum or plasma creatinine measurement (mass/volume) 0.68 mg/dL 0.55-1.02 [facility] Erythrocyte distribution wid th (RBC) [Ratio]Ordered By: Lesli Watkins on 04-16-2024 Erythrocyte distribution width ratio 13.0 % 11.6-14.6 [facility] Erythrocyte distribution width (RBC) [Entitic vol] 46.3 fL High 35.1-43.9 [facility] Erythrocyte distribution width standard deviation 46.3 fl High 35.1-43.9 [facility] Erythrocyte distribution wid th ratioOrdered By: Lesli Watkins on 04-16-2024 Erythrocyte distribution width (RBC) [Ratio] 13.0 % 11.6-14.6 [facility] Erythrocyte distribution wid th standard deviationOrdered By: Lesli Watkins on 04-16-2024 Erythrocyte distribution width (RBC) [Ratio] 46.3 fl High 35.1-43.9 [facility] Estimated glomerular filtrat ion rate (GFR) AmericanOrdered By: Lesli Watkins on 04-16-2024 Estimated GFR (MDRD) Amer 108 mL/min >60 [facility] Comment on above: GFR Calc Estimated glomerular filtration rate (GFR) 108 mL/min >60 [facility] Estimation of creatinine bharat aranceOrdered By: Lesli Watkins on 04-16-2024 Estimated Creatinine Clearance Calc 50.81 ml/min [facility] Estimation of creatinine clearance 50.81 ml/min [facility] Glomerular filtration rate ( GFR) estimationOrdered By: Lesli Watkins on 04-16-2024 Estimated GFR (MDRD) Non-Af Amer 89 mL/min >60 [facility] Comment on above: Non- GFR Calc GFR/1.73 sq M.predicted among non-blacks MDRD (S/P/Bld) [Vol rate/Area] 89 mL/min/{1.73_m2} >60 [facility] Glomerular filtration rate (GFR) estimation 89 mL/min >60 [facility] Glucose measurementOrdered B y: Lesli Watkins on 04-16-2024 Glucose [Mass/Vol] 113 mg/dL High 74-106 [facility] Comment on above: Fasting Glucose resu lt from 100 to 125 mg/dL suggests IMPAIRED HOMEOSTASIS per A.D.A. criteria. Glucose measurement 113 mg/dL High 74-106 [facility] Hematocrit Auto (Bld) [Volum e fraction]Ordered By: Lesli Watkins on 04-16-2024 Hematocrit (Bld) [Volume fraction] 36.8 % Low 37-47 [facility] Automated blood hematocrit (percentage) 36.8 % Low 37-47 [facility] Hemoglobin measurementOrdere d By: Lesli Watkins on 04-16-2024 Hemoglobin (Bld) [Mass/Vol] 11.9 g/dL Low 12.0-15. 0 [facility] Hemoglobin measurement 11.9 g/dL Low 12.0-15.0 [facility] MCV (RBC) [Entitic vol]Order ed By: Lesli Watkins on 04-16-2024 MCV (mean corpuscular volume) determination 97.6 fL 81-99 [facility] MCV (mean corpuscular volume ) determinationOrdered By: Lesli Watkins on 04-16-2024 MCV (RBC) [Entitic vol] 97.6 fL 81-99 [facility] Mean corpuscular hemoglobin (MCH) determinationOrdered By: Lesli Watkins on 04-16-2024 MCH (RBC) [Entitic mass] 31.6 pg 27.0-32.0 [facility] Mean corpuscular hemoglobin (MCH) determination 31.6 pg 27.0-32.0 [facility] Mean corpuscular hemoglobin concentration (MCHC) determinationOrdered By: Lesli Watkins on 04-16-2024 MCHC (RBC) [Mass/Vol] 32.3 g/dL 32-36 [facility] Mean corpuscular hemoglobin concentration (MCHC) determination 32.3 g/dL -36 [facility] Mean platelet volume determi nationOrdered By: Lesli Watkins on 04-16-2024 Platelet mean volume (Bld) [Entitic vol] 8.8 fL 6.2-12.0 [facility] Mean platelet volume determination 8.8 fl 6.2-12.0 [facility] Platelet countOrdered By: Gaby Watkins on 04-16-2024 Platelets (Bld) [#/Vol] 252 10*3/uL 150-450 [facility] Platelet count 252 K/mm3 150-450 [facility] Potassium measurementOrdered By: Lesli Watkins on 04-16-2024 Potassium [Moles/Vol] 4.5 mmol/L 3.5-5.1 [facility] Potassium measurement 4.5 mmol/L 3.5-5.1 [facility] RBC Auto (Bld) [#/Vol]Ordere d By: Lesli Watkins on 04-16-2024 RBC (Bld) [#/Vol] 3.77 10*6/uL Low 4.2-5.4 [facility] Automated blood erythrocyte count 3.77 M/mm3 Low 4.2-5.4 [facility] Serum anion gap measurementO rdered By: Lesli Watkins on 04-16-2024 Anion gap [Moles/Vol] 5 mmol/L 5-15 [facility] Serum anion gap measurement 5 5-15 [facility] Serum or plasma calcium gianluca urement (mass/volume)Ordered By: Lesli Watkins on 04-16-2024 Calcium [Mass/Vol] 9.3 mg/dL 8.5-10.1 [facility] Serum or plasma creatinine m easurement (mass/volume)Ordered By: Lesli Watkins on 04-16-2024 Creatinine [Mass/Vol] 0.68 mg/dL 0.55-1.02 [facility] Comment on above: The validity of the calculated GFR & GFRAA in patients over 70 years has not been determined. Clinical correlation is essential. Serum or plasma urea nitroge n measurement (mass/volume)Ordered By: Lesli Watkins on 04-16-2024 Urea nitrogen [Mass/Vol] 21 mg/dL High 10-15 [facility] Sodium levelOrdered By: Zeus Watkins on 04-16-2024 Sodium [Moles/Vol] 137 mmol/L 136-145 [facility] Sodium level 137 mmol/L 136-145 [facility] Urea nitrogen [Mass/Vol]Orde red By: Lesli Watkins on 04-16-2024 Serum or plasma urea nitrogen measurement (mass/volume) 21 mg/dL High 10-15 [facility] White blood cell (WBC) count Ordered By: Lesli Watkins on 04-16-2024 WBC (Bld) [#/Vol] 8.7 10*3/uL 4.4-11.0 [facility] White blood cell (WBC) count 8.7 K/mm3 4.4-11.0 [facility] Basic Metabolic Profile (BMP )on 04-15-2024 BUN/CRE 27.9 RATIO High 10-20 [facility] Comment on above: Performed By: #### L 500.2500, L100.0500 ####[facility] [address] [place], [address] CA,Total 9.2 mg/dL Normal 8.5-10.1 [facility] Comment on above: Performed By: #### L 500.2500, L100.0500 ####[facility] [address] [place], [address] Chloride [Moles/Vol] 107 mmol/L Normal 98-107 [facility] Comment on above: Performed By: #### L 500.2500, L100.0500 ####[facility] [address] [place], [address] CO2 [Moles/Vol] 26.0 mmol/L Normal 21.0-32.0 [facility] Comment on above: Performed By: #### L 500.2500, L100.0500 ####[facility] [address] [place], [address] Creatinine [Mass/Vol] 0.68 mg/dL Normal 0.55-1.02 [facility] Comment on above: Result Comment: The validity of the calculated GFR GFRAA in patients over70 years has not been determined. Clinical correlation isessential. Performed By: #### L 500.2500, L100.0500 ####[facility] [address] [place], [address] ECRCL 50.81 ml/min Normal [facility] Comment on above: Performed By: #### L 500.2500, L100.0500 ####[facility] [address] [place], [address] EST GFR - AA 107 mL/min Normal >60 [facility] Comment on above: Result Comment: Afri can [place] GFR Calc Performed By: #### L 500.2500, L100.0500 ####[facility] [address] [place], [address] GAP 5 Normal 5-15 [facility] Comment on above: Performed By: #### L 500.2500, L100.0500 ####[facility] [address] [place], [address] GFR/1.73 sq M.predicted among non-blacks MDRD (S/P/Bld) [Vol rate/Area] 89 mL/min/{1.73_m2} Normal >60 [facility] Comment on above: Result Comment: Non- GFR Calc Performed By: #### L 500.2500, L100.0500 ####[facility] [address] [place], [address] Glucose [Mass/Vol] 119 mg/dL High 74-106 [facility] Comment on above: Result Comment: Fast ing Glucose result from 100 to 125 mg/dLsuggests IMPAIRED HOMEOSTASIS per A.D.A. criteria. Performed By: #### L 500.2500, L100.0500 ####[facility] [address] [place], [address] Potassium [Moles/Vol] 4.4 mmol/L Normal 3.5-5.1 [facility] Comment on above: Performed By: #### L 500.2500, L100.0500 ####[facility] [address] [place], [address] Sodium [Moles/Vol] 138 mmol/L Normal 136-145 [facility] Comment on above: Performed By: #### L 500.2500, L100.0500 ####[facility] [address] [place], [address] Urea nitrogen [Mass/Vol] 19 mg/dL High 7-18 [facility] Comment on above: Performed By: #### L 500.2500, L100.0500 ####[facility] [address] [place], [address] CBC-Complete Blood Cnt No Di on 04-15-2024 Erythrocyte distribution width (RBC) [Ratio] 13.0 % Normal 11.6-14.6 [facility] Comment on above: Performed By: #### L 500.2500, L100.0500 ####[facility] [address] [place], [address] Hematocrit (Bld) [Volume fraction] 37.2 % Normal 37-47 [facility] Comment on above: Performed By: #### L 500.2500, L100.0500 ####[facility] [address] [place], [address] Hemoglobin (Bld) [Mass/Vol] 12.2 g/dL Normal 12.0-15. 0 [facility] Comment on above: Performed By: #### L 500.2500, L100.0500 ####[facility] [address] [place], [address] MCH (RBC) [Entitic mass] 31.9 pg Normal 27.0-32.0 [facility] Comment on above: Performed By: #### L 500.2500, L100.0500 ####[facility] [address] [place], [address] MCHC (RBC) [Mass/Vol] 32.8 g/dL Normal 32-36 [facility] Comment on above: Performed By: #### L 500.2500, L100.0500 ####[facility] [address] [place], [address] MCV (RBC) [Entitic vol] 97.4 fL Normal 81-99 [facility] Comment on above: Performed By: #### L 500.2500, L100.0500 ####[facility] [address] [place], [address] Platelet mean volume (Bld) [Entitic vol] 8.9 fL Normal 6.2-12.0 [facility] Comment on above: Performed By: #### L 500.2500, L100.0500 ####[facility] [address] [place], [address] Platelets (Bld) [#/Vol] 281 10*3/uL Normal 150-450 [facility] Comment on above: Performed By: #### L 500.2500, L100.0500 ####[facility] [address] [place], [address] RBC (Bld) [#/Vol] 3.82 10*6/uL Low 4.2-5.4 [facility] Comment on above: Performed By: #### L 500.2500, L100.0500 ####[facility] [address] [place], [address] RDW SD 46.1 fl High 35.1-43.9 [facility] Comment on above: Performed By: #### L 500.2500, L100.0500 ####[facility] [facility] [address] [place], [address] WBC (Bld) [#/Vol] 9.4 10*3/uL Normal 4.4-11.0 [facility] Comment on above: Performed By: #### L 500.2500, L100.0500 ####[facility] [address] [place], [address] 12 Lead EKGon 04-14-2024 12 Lead EKG Normal [facility] Basic Metabolic Profile (BMP )on 04-14-2024 BUN/CRE 25.0 RATIO High 10-20 [facility] Comment on above: Performed By: #### L 500.2500, L100.0500 ####[facility] [address] [place], [address] CA,Total 8.8 mg/dL Normal 8.5-10.1 [facility] Comment on above: Performed By: #### L 500.2500, L100.0500 ####[facility] [address] [place], [address] Chloride [Moles/Vol] 106 mmol/L Normal 98-107 [facility] Comment on above: Performed By: #### L 500.2500, L100.0500 ####[facility] [address] [place], [address] CO2 [Moles/Vol] 27.0 mmol/L Normal 21.0-32.0 [facility] Comment on above: Performed By: #### L 500.2500, L100.0500 ####[facility] [address] [place], [address] Creatinine [Mass/Vol] 0.80 mg/dL Normal 0.55-1.02 [facility] Comment on above: Result Comment: The validity of the calculated GFR GFRAA in patients over70 years has not been determined. Clinical correlation isessential. Performed By: #### L 500.2500, L100.0500 ####[facility] [address] [place], [address] ECRCL 50.81 ml/min Normal [facility] Comment on above: Performed By: #### L 500.2500, L100.0500 ####[facility] [address] [place], [address] EST GFR - AA 89 mL/min Normal >60 [facility] Comment on above: Result Comment: Afri can Andorran GFR Calc Performed By: #### L 500.2500, L100.0500 ####[facility] [address] [place], [address] GAP 4 Low 5-15 [facility] Comment on above: Performed By: #### L 500.2500, L100.0500 ####[facility] [address] [place], [address] GFR/1.73 sq M.predicted among non-blacks MDRD (S/P/Bld) [Vol rate/Area] 74 mL/min/{1.73_m2} Normal >60 [facility] Comment on above: Result Comment: Non- GFR Calc Performed By: #### L 500.2500, L100.0500 ####[facility] [address] [place], [address] Glucose [Mass/Vol] 93 mg/dL Normal 74-106 [facility] Comment on above: Performed By: #### L 500.2500, L100.0500 ####[facility] [address] [place], [address] Potassium [Moles/Vol] 4.3 mmol/L Normal 3.5-5.1 [facility] Comment on above: Performed By: #### L 500.2500, L100.0500 ####[facility] [address] [place], [address] Sodium [Moles/Vol] 138 mmol/L Normal 136-145 [facility] Comment on above: Performed By: #### L 500.2500, L100.0500 ####[facility] [address] [place], [address] Urea nitrogen [Mass/Vol] 20 mg/dL High 7-18 [facility] Comment on above: Performed By: #### L 500.2500, L100.0500 ####[facility] [address] [place], [address] CBC-Complete Blood Cnt No Di ffon 04-14-2024 Erythrocyte distribution width (RBC) [Ratio] 13.1 % Normal 11.6-14.6 [facility] Comment on above: Performed By: #### L 500.2500, L100.0500 ####[facility] [address] [place], [address] Hematocrit (Bld) [Volume fraction] 36.1 % Low 37-47 [facility] Comment on above: Performed By: #### L 500.2500, L100.0500 ####[facility] [address] [place], [address] Hemoglobin (Bld) [Mass/Vol] 11.6 g/dL Low 12.0-15. 0 [facility] Comment on above: Performed By: #### L 500.2500, L100.0500 ####[facility] [address] [place], [address] MCH (RBC) [Entitic mass] 31.9 pg Normal 27.0-32.0 [facility] Comment on above: Performed By: #### L 500.2500, L100.0500 ####[facility] [address] [place], [address] MCHC (RBC) [Mass/Vol] 32.1 g/dL Normal 32-36 [facility] Comment on above: Performed By: #### L 500.2500, L100.0500 ####[facility] [address] [place], [address] MCV (RBC) [Entitic vol] 99.2 fL High 81-99 [facility] Comment on above: Performed By: #### L 500.2500, L100.0500 ####[facility] [address] [place], [address] Platelet mean volume (Bld) [Entitic vol] 9.0 fL Normal 6.2-12.0 [facility] Comment on above: Performed By: #### L 500.2500, L100.0500 ####[facility] [address] [place], [address] Platelets (Bld) [#/Vol] 269 10*3/uL Normal 150-450 [facility] Comment on above: Performed By: #### L 500.2500, L100.0500 ####[facility] [address] [place], [address] RBC (Bld) [#/Vol] 3.64 10*6/uL Low 4.2-5.4 [facility] Comment on above: Performed By: #### L 500.2500, L100.0500 ####[facility] [address] [place], [address] RDW SD 47.4 fl High 35.1-43.9 [facility] Comment on above: Performed By: #### L 500.2500, L100.0500 ####[facility] [address] [place], [address] WBC (Bld) [#/Vol] 7.1 10*3/uL Normal 4.4-11.0 [facility] Comment on above: Performed By: #### L 500.2500, L100.0500 ####[facility] [address] [place], [address] Lumbar Spine 2 or 3 Viewson 04-14-2024 Lumbar Spine 2 or 3 Views Normal [facility] MR/POSTOP.ANEon 04-14-2024 MR/POSTOP.ANE Normal [facility] MR/FYZSRSQT5ae 04-14-2024 MR/POSTOPAN2 Normal [facility] Operative Reporton Operative Report Normal [facility] Basic Metabolic Profile (BMP )on 04-13-2024 BUN/CRE 25.7 RATIO High 10-20 [facility] Comment on above: Performed By: #### L 500.2500, L100.0500 ####[facility] [address] [place], [address] CA,Total 9.0 mg/dL Normal 8.5-10.1 [facility] Comment on above: Performed By: #### L 500.2500, L100.0500 ####[facility] [address] [place], [address] Chloride [Moles/Vol] 107 mmol/L Normal 98-107 [facility] Comment on above: Performed By: #### L 500.2500, L100.0500 ####[facility] [address] [place], [address] CO2 [Moles/Vol] 27.0 mmol/L Normal 21.0-32.0 [facility] Comment on above: Performed By: #### L 500.2500, L100.0500 ####[facility] [address] [place], [address] Creatinine [Mass/Vol] 0.70 mg/dL Normal 0.55-1.02 [facility] Comment on above: Result Comment: The validity of the calculated GFR GFRAA in patients over70 years has not been determined. Clinical correlation isessential. Performed By: #### L 500.2500, L100.0500 ####[facility] [address] [place], [address] ECRCL 50.81 ml/min Normal [facility] Comment on above: Performed By: #### L 500.2500, L100.0500 ####[facility] [address] [place], [address] EST GFR - AA 104 mL/min Normal >60 [facility] Comment on above: Result Comment: Afri can Andorran GFR Calc Performed By: #### L 500.2500, L100.0500 ####[facility] [address] [place], [address] GAP 5 Normal 5-15 [facility] Comment on above: Performed By: #### L 500.2500, L100.0500 ####[facility] [address] [place], [address] GFR/1.73 sq M.predicted among non-blacks MDRD (S/P/Bld) [Vol rate/Area] 86 mL/min/{1.73_m2} Normal >60 [facility] Comment on above: Result Comment: Non- GFR Calc Performed By: #### L 500.2500, L100.0500 ####[facility] [address] [place], [address] Glucose [Mass/Vol] 94 mg/dL Normal 74-106 [facility] Comment on above: Performed By: #### L 500.2500, L100.0500 ####[facility] [address] [place], [address] Potassium [Moles/Vol] 4.1 mmol/L Normal 3.5-5.1 [facility] Comment on above: Performed By: #### L 500.2500, L100.0500 ####[facility] [address] [place], [address] Sodium [Moles/Vol] 139 mmol/L Normal 136-145 [facility] Comment on above: Performed By: #### L 500.2500, L100.0500 ####[facility] [address] [place], [address] Urea nitrogen [Mass/Vol] 18 mg/dL Normal 7-18 [facility] Comment on above: Performed By: #### L 500.2500, L100.0500 ####[facility] [address] [place], [address] CBC-Complete Blood Cnt No Di ffon 04-13-2024 Erythrocyte distribution width (RBC) [Ratio] 13.1 % Normal 11.6-14.6 [facility] Comment on above: Performed By: #### L 500.2500, L100.0500 ####[facility] [address] [place], [address] Hematocrit (Bld) [Volume fraction] 37.7 % Normal 37-47 [facility] Comment on above: Performed By: #### L 500.2500, L100.0500 ####[facility] [address] [place], [address] Hemoglobin (Bld) [Mass/Vol] 12.2 g/dL Normal 12.0-15. 0 [facility] Comment on above: Performed By: #### L 500.2500, L100.0500 ####[facility] [address] [place], [address] MCH (RBC) [Entitic mass] 32.0 pg Normal 27.0-32.0 [facility] Comment on above: Performed By: #### L 500.2500, L100.0500 ####[facility] [address] [place], [address] MCHC (RBC) [Mass/Vol] 32.4 g/dL Normal 32-36 [facility] Comment on above: Performed By: #### L 500.2500, L100.0500 ####[facility] [address] [place], [address] MCV (RBC) [Entitic vol] 99.0 fL Normal 81-99 [facility] Comment on above: Performed By: #### L 500.2500, L100.0500 ####[facility] [address] [place], [address] Platelet mean volume (Bld) [Entitic vol] 9.0 fL Normal 6.2-12.0 [facility] Comment on above: Performed By: #### L 500.2500, L100.0500 ####[facility] [address] [place], [address] Platelets (Bld) [#/Vol] 267 10*3/uL Normal 150-450 [facility] Comment on above: Performed By: #### L 500.2500, L100.0500 ####[facility] [address] [place], [address] RBC (Bld) [#/Vol] 3.81 10*6/uL Low 4.2-5.4 [facility] Comment on above: Performed By: #### L 500.2500, L100.0500 ####[facility] [address] [place], [address] RDW SD 47.2 fl High 35.1-43.9 [facility] Comment on above: Performed By: #### L 500.2500, L100.0500 ####[facility] [address] [place], [address] WBC (Bld) [#/Vol] 6.6 10*3/uL Normal 4.4-11.0 [facility] Comment on above: Performed By: #### L 500.2500, L100.0500 ####[facility] [address] [place], [place], [address] Spine Lumbar (Routine)on Spine Lumbar (Routine) Normal [facility] Absolute lymphocyte countOrd ered By: Lesli Watkins on 04-12-2024 Lymphocytes Auto (Unsp spec) [#/Vol] 1.50 10*3/uL 0.83-4.51 [facility] Absolute neutrophil countOrd ered By: Lesli Watkins on 04-12-2024 Neutrophils (Bld) [#/Vol] 4.5 10*3/uL 2.0-7.7 [facility] Absolute neutrophil count 4.5 X10^3/uL 2.0-7.7 [facility] Automated lymphocyte count a s percentage of total leukocytesOrdered By: Lesli Watkins on 04-12-2024 Lymphocytes/100 WBC Auto (Unsp spec) 21.6 % 19-41 [facility] Basic Metabolic Profile (BMP )on 04-12-2024 BUN/CRE 18.6 RATIO Normal 10-20 [facility] Comment on above: Performed By: #### L 300.3900, L501.9520, L500.2500, L100.0100, L501.5200 ####[facility] [address] [place], [place], [id number] CA,Total 9.0 mg/dL Normal 8.5-10.1 [facility] Comment on above: Performed By: #### L 300.3900, L501.9520, L500.2500, L100.0100, L501.5200 ####[facility] [address] [place], [address] Chloride [Moles/Vol] 107 mmol/L Normal 98-107 [facility] Comment on above: Performed By: #### L 300.3900, L501.9520, L500.2500, L100.0100, L501.5200 ####[facility] [address] [place], [address] CO2 [Moles/Vol] 26.0 mmol/L Normal 21.0-32.0 [facility] Comment on above: Performed By: #### L 300.3900, L501.9520, L500.2500, L100.0100, L501.5200 ####[facility] [address] [place], [address] Creatinine [Mass/Vol] 0.81 mg/dL Normal 0.55-1.02 [facility] Comment on above: Result Comment: The validity of the calculated GFR GFRAA in patients over70 years has not been determined. Clinical correlation isessential. Performed By: #### L 300.3900, L501.9520, L500.2500, L100.0100, L501.5200 ####[facility] [address] [place], [address] ECRCL 50.18 ml/min Normal [facility] Comment on above: Performed By: #### L 300.3900, L501.9520, L500.2500, L100.0100, L501.5200 ####[facility] [address] [place], [address] EST GFR - AA 88 mL/min Normal >60 [facility] Comment on above: Result Comment: Afri can Andorran GFR Calc Performed By: #### L 300.3900, L501.9520, L500.2500, L100.0100, L501.5200 ####[facility] [address] [place], [address] GAP 6 Normal 5-15 [facility] Comment on above: Performed By: #### L 300.3900, L501.9520, L500.2500, L100.0100, L501.5200 ####[facility] [address] [place], [address] GFR/1.73 sq M.predicted among non-blacks MDRD (S/P/Bld) [Vol rate/Area] 73 mL/min/{1.73_m2} Normal >60 [facility] Comment on above: Result Comment: Non- GFR Calc Performed By: #### L 300.3900, L501.9520, L500.2500, L100.0100, L501.5200 ####[facility] [address] [place], [address] Glucose [Mass/Vol] 95 mg/dL Normal 74-106 [facility] Comment on above: Performed By: #### L 300.3900, L501.9520, L500.2500, L100.0100, L501.5200 ####[facility] [address] [place], [address] Potassium [Moles/Vol] 4.4 mmol/L Normal 3.5-5.1 [facility] Comment on above: Performed By: #### L 300.3900, L501.9520, L500.2500, L100.0100, L501.5200 ####[facility] [address] [place], [address] Sodium [Moles/Vol] 138 mmol/L Normal 136-145 [facility] Comment on above: Performed By: #### L 300.3900, L501.9520, L500.2500, L100.0100, L501.5200 ####[facility] [address] [place], [address] Urea nitrogen [Mass/Vol] 15 mg/dL Normal 7-18 [facility] Comment on above: Performed By: #### L 300.3900, L501.9520, L500.2500, L100.0100, L501.5200 ####[facility] [address] [place], [address] Basophil percentageOrdered B y: Lesli Watkins on 04-12-2024 Basophils/100 WBC (Bld) 0.6 % 0-1 [facility] Basophil percentage 0.6 % 0-1 [facility] CBC W/Diff, Automatedon 03-31 Absolute Lymph 1.50 X10 3/uL Normal 0.83-4.51 [facility] Comment on above: Performed By: #### L 300.3900, L501.9520, L500.2500, L100.0100, L501.5200 ####[facility] [address] [place], [address] Absolute Neut 4.5 X10 3/uL Normal 2.0-7.7 [facility] Comment on above: Performed By: #### L 300.3900, L501.9520, L500.2500, L100.0100, L501.5200 ####[facility] [address] [place], [address] Basophils/100 WBC (Bld) 0.6 % Normal 0-1 [facility] Comment on above: Performed By: #### L 300.3900, L501.9520, L500.2500, L100.0100, L501.5200 ####[facility] [address] [place], [address] Eosinophils/100 WBC (Bld) 1.3 % Normal 0-5 [facility] Comment on above: Performed By: #### L 300.3900, L501.9520, L500.2500, L100.0100, L501.5200 ####[facility] [address] [place], [address] Erythrocyte distribution width (RBC) [Ratio] 13.1 % Normal 11.6-14.6 [facility] Comment on above: Performed By: #### L 300.3900, L501.9520, L500.2500, L100.0100, L501.5200 ####[facility] [address] [place], [address] Hematocrit (Bld) [Volume fraction] 39.0 % Normal 37-47 [facility] Comment on above: Performed By: #### L 300.3900, L501.9520, L500.2500, L100.0100, L501.5200 ####[facility] [address] [place], [address] Hemoglobin (Bld) [Mass/Vol] 12.5 g/dL Normal 12.0-15. 0 [facility] Comment on above: Performed By: #### L 300.3900, L501.9520, L500.2500, L100.0100, L501.5200 ####[facility] [address] [place], [address] IG% 0.400 Normal 0.0-0.9 [facility] Comment on above: Result Comment: IG% - Immature Granulocytes (promyelocytes, myelocytes andmetamyelocytes) > 1% indicates that a LEFT SHIFT is Present. Performed By: #### L 300.3900, L501.9520, L500.2500, L100.0100, L501.5200 ####[facility] [address] [place], [address] Lymphocytes/100 WBC (Bld) 21.6 % Normal 19-41 [facility] Comment on above: Performed By: #### L 300.3900, L501.9520, L500.2500, L100.0100, L501.5200 ####[facility] [address] [place], [address] MCH (RBC) [Entitic mass] 31.7 pg Normal 27.0-32.0 [facility] Comment on above: Performed By: #### L 300.3900, L501.9520, L500.2500, L100.0100, L501.5200 ####[facility] [address] [place], [address] MCHC (RBC) [Mass/Vol] 32.1 g/dL Normal 32-36 [facility] Comment on above: Performed By: #### L 300.3900, L501.9520, L500.2500, L100.0100, L501.5200 ####[facility] [address] [place], [address] MCV (RBC) [Entitic vol] 99.0 fL Normal 81-99 [facility] Comment on above: Performed By: #### L 300.3900, L501.9520, L500.2500, L100.0100, L501.5200 ####[facility] [address] [place], [address] Monocytes/100 WBC (Bld) 10.9 % High 0-10 [facility] Comment on above: Performed By: #### L 300.3900, L501.9520, L500.2500, L100.0100, L501.5200 ####[facility] [address] [place], [address] Neutrophils/100 WBC (Bld) 65.2 % Normal 47-70 [facility] Comment on above: Performed By: #### L 300.3900, L501.9520, L500.2500, L100.0100, L501.5200 ####[facility] [address] [place], [address] Nucleated RBC (Bld) [#/Vol] 0 10*3/uL Normal 0-5 [facility] Comment on above: Performed By: #### L 300.3900, L501.9520, L500.2500, L100.0100, L501.5200 ####[facility] [address] [place], [address] Platelet mean volume (Bld) [Entitic vol] 8.8 fL Normal 6.2-12.0 [facility] Comment on above: Performed By: #### L 300.3900, L501.9520, L500.2500, L100.0100, L501.5200 ####[facility] [address] [place], [address] Platelets (Bld) [#/Vol] 291 10*3/uL Normal 150-450 [facility] Comment on above: Performed By: #### L 300.3900, L501.9520, L500.2500, L100.0100, L501.5200 ####[facility] [address] [place], [address] RBC (Bld) [#/Vol] 3.94 10*6/uL Low 4.2-5.4 [facility] Comment on above: Performed By: #### L 300.3900, L501.9520, L500.2500, L100.0100, L501.5200 ####[facility] [address] [place], [address] RDW SD 47.5 fl High 35.1-43.9 [facility] Comment on above: Performed By: #### L 300.3900, L501.9520, L500.2500, L100.0100, L501.5200 ####[facility] [address] [place], [address] WBC (Bld) [#/Vol] 7.0 10*3/uL Normal 4.4-11.0 [facility] Comment on above: Performed By: #### L 300.3900, L501.9520, L500.2500, L100.0100, L501.5200 ####[facility] [address] [place], [address] Eosinophil percentageOrdered By: Lesli Watkins on 04-12-2024 Eosinophils/100 WBC (Bld) 1.3 % 0-5 [facility] Eosinophil percentage 1.3 % 0-5 [facility] Immature granulocytes/100 WB C Auto (Bld)Ordered By: Lesli Watkins on 04-12-2024 Immature granulocytes/100 WBC (Bld) 0.400 % 0.0-0.9 [facility] Comment on above: IG% - Immature Granu locytes (promyelocytes, myelocytes and metamyelocytes) > 1% indicates that a LEFT SHIFT is Present. Automated immature granulocyte percentage 0.400 % 0.0-0.9 [facility] International normalized rat io (INR) calculationOrdered By: Lesli Watkins on 04-12-2024 INR Coag (Bld) [Relative time] 1.0 {INR} [facility] International normalized ratio (INR) calculation 1.0 [facility] Lymphocytes Auto (Unsp spec) [#/Vol]Ordered By: Lesli Watkins on 04-12-2024 Lymphocytes (Bld) [#/Vol] 1.50 10*3/uL 0.83-4.5 1 [facility] Absolute lymphocyte count 1.50 X10^3/uL 0.83-4. 51 [facility] Lymphocytes/100 WBC Auto (Un sp spec)Ordered By: Lesli Watkins on 04-12-2024 Lymphocytes/100 WBC (Bld) 21.6 % [facility] Automated lymphocyte count as percentage of total leukocytes 21.6 % [facility] Magnesiumon 04-12-2024 Magnesium [Mass/Vol] 2.3 mg/dL Normal 1.6-2.6 [facility] Comment on above: Performed By: #### L 300.3900, L501.9520, L500.2500, L100.0100, L501.5200 ####[facility] [address] [place], [place], [id number] Magnesium measurementOrdered By: Lesli Watkins on 04-12-2024 Magnesium [Mass/Vol] 2.3 mg/dL 1.6-2.6 [facility] Magnesium measurement 2.3 mg/dL 1.6-2.6 [facility] Monocyte percentageOrdered B y: Lesli Watkins on 04-12-2024 Monocytes/100 WBC (Bld) 10.9 % High 0-10 [facility] Monocyte percentage 10.9 % High 0-10 [facility] Neutrophil percentageOrdered By: Lesli Watkins on 04-12-2024 Neutrophils/100 WBC (Bld) 65.2 % 47-70 [facility] Neutrophil percentage 65.2 % 47-70 [facility] Nucleated red blood cell per centageOrdered By: Lesli Watkins on 04-12-2024 Nucleated RBC/100 WBC (Bld) [Ratio] 0 % 0-5 [facility] Nucleated red blood cell percentage 0 % 0-5 [facility] Prothrombin Time w/INRon INR Coag (PPP) [Relative time] 1.0 {INR} Normal [facility] Comment on above: Performed By: #### L 300.3900, L501.9520, L500.2500, L100.0100, L501.5200 ####[facility] [address] [place], [place], [phone] PT Coag (PPP) [Time] 13.8 s Normal 11.7-14.9 [facility] Comment on above: Performed By: #### L 300.3900, L501.9520, L500.2500, L100.0100, L501.5200 ####[facility] [address] [place], [address] Prothrombin timeOrdered By: Lesli Watkins on 04-12-2024 PT Coag (PPP) [Time] 13.8 s 11.7-14.9 [facility] Prothrombin time 13.8 SECONDS 11.7-14.9 [facility] Serum or plasma thyroid stim ulating hormone (TSH) measurement (units/volume)Ordered By: Lesli Watkins on 04-12-2024 TSH Qn 0.856 uIU/mL 0.358-3.740 [facility] TSH QnOrdered By: Lesli mccoy on 04-12-2024 Thyroid Stimulating Hormone (TSH) 0.856 uIU/mL 0.358-3.740 [facility] Serum or plasma thyroid stimulating hormone (TSH) measurement (units/volume) 0.856 uIU/mL 0.358-3.740 [facility] Thyroid Stim Hormone (TSH)on 04-12-2024 TSH 0.856 uIU/mL Normal 0.358-3.740 [facility] Comment on above: Performed By: #### L 300.3900, L501.9520, L500.2500, L100.0100, L501.5200 ####[facility] [address] [place], [address] Transvaginal Non-on 04-12-2024 Transvaginal Non- Normal [facility] Basic Metabolic Profile (BMP )on 04-11-2024 BUN/CRE 18.3 RATIO Normal 10-20 [facility] Comment on above: Performed By: #### L 100.0100, L500.2500 ####[facility] [address] [place], [address] CA,Total 9.1 mg/dL Normal 8.5-10.1 [facility] Comment on above: Performed By: #### L 100.0100, L500.2500 ####[facility] [address] [place], [address] Chloride [Moles/Vol] 103 mmol/L Normal 98-107 [facility] Comment on above: Performed By: #### L 100.0100, L500.2500 ####[facility] [address] [place], [address] CO2 [Moles/Vol] 27.0 mmol/L Normal 21.0-32.0 [facility] Comment on above: Performed By: #### L 100.0100, L500.2500 ####[facility] [address] [place], [address] Creatinine [Mass/Vol] 0.76 mg/dL Normal 0.55-1.02 [facility] Comment on above: Result Comment: The validity of the calculated GFR GFRAA in patients over70 years has not been determined. Clinical correlation isessential. Performed By: #### L 100.0100, L500.2500 ####[facility] [address] [place], [address] ECRCL 53.96 ml/min Normal [facility] Comment on above: Performed By: #### L 100.0100, L500.2500 ####[facility] [address] [place], [address] EST GFR - AA 94 mL/min Normal >60 [facility] Comment on above: Result Comment: Afri can [place] GFR Calc Performed By: #### L 100.0100, L500.2500 ####[facility] [address] [place], [address] GAP 6 Normal 5-15 [facility] Comment on above: Performed By: #### L 100.0100, L500.2500 ####[facility] [address] [place], [address] GFR/1.73 sq M.predicted among non-blacks MDRD (S/P/Bld) [Vol rate/Area] 78 mL/min/{1.73_m2} Normal >60 [facility] Comment on above: Result Comment: Non- GFR Calc Performed By: #### L 100.0100, L500.2500 ####[facility] [address] [place], [address] Glucose [Mass/Vol] 97 mg/dL Normal 74-106 [facility] Comment on above: Performed By: #### L 100.0100, L500.2500 ####[facility] [address] [place], [address] Potassium [Moles/Vol] 4.2 mmol/L Normal 3.5-5.1 [facility] Comment on above: Performed By: #### L 100.0100, L500.2500 ####[facility] [address] [place], [address] Sodium [Moles/Vol] 136 mmol/L Normal 136-145 [facility] Comment on above: Performed By: #### L 100.0100, L500.2500 ####[facility] [address] [place], [address] Urea nitrogen [Mass/Vol] 14 mg/dL Normal 7-18 [facility] Comment on above: Performed By: #### L 100.0100, L500.2500 ####[facility] [address] [place], [address] CBC W/Diff, Automatedon 03-31-2024 Absolute Lymph 1.21 X10 3/uL Normal 0.83-4.51 [facility] Comment on above: Performed By: #### L 100.0100, L500.2500 ####[facility] [address] [place], [address] Absolute Neut 5.9 X10 3/uL Normal 2.0-7.7 [facility] Comment on above: Performed By: #### L 100.0100, L500.2500 ####[facility] [address] [place], [address] Basophils/100 WBC (Bld) 0.7 % Normal 0-1 [facility] Comment on above: Performed By: #### L 100.0100, L500.2500 ####[facility] [address] [place], [address] Eosinophils/100 WBC (Bld) 1.0 % Normal 0-5 [facility] Comment on above: Performed By: #### L 100.0100, L500.2500 ####[facility] [address] [place], [address] Erythrocyte distribution width (RBC) [Ratio] 13.0 % Normal 11.6-14.6 [facility] Comment on above: Performed By: #### L 100.0100, L500.2500 ####[facility] [address] [place], [address] Hematocrit (Bld) [Volume fraction] 38.0 % Normal 37-47 [facility] Comment on above: Performed By: #### L 100.0100, L500.2500 ####[facility] [address] [place], [address] Hemoglobin (Bld) [Mass/Vol] 12.7 g/dL Normal 12.0-15. 0 [facility] Comment on above: Performed By: #### L 100.0100, L500.2500 ####[facility] [address] [place], [address] IG% 0.400 Normal 0.0-0.9 [facility] Comment on above: Result Comment: IG% - Immature Granulocytes (promyelocytes, myelocytes andmetamyelocytes) > 1% indicates that a LEFT SHIFT is Present. Performed By: #### L 100.0100, L500.2500 ####[facility] [address] [place], [address] Lymphocytes/100 WBC (Bld) 15.1 % Low 19-41 [facility] Comment on above: Performed By: #### L 100.0100, L500.2500 ####[facility] [address] [place], [address] MCH (RBC) [Entitic mass] 32.4 pg High 27.0-32.0 [facility] Comment on above: Performed By: #### L 100.0100, L500.2500 ####[facility] [address] [place], [address] MCHC (RBC) [Mass/Vol] 33.4 g/dL Normal 32-36 [facility] Comment on above: Performed By: #### L 100.0100, L500.2500 ####[facility] [address] [place], [address] MCV (RBC) [Entitic vol] 96.9 fL Normal 81-99 [facility] Comment on above: Performed By: #### L 100.0100, L500.2500 ####[facility] [address] [place], [address] Monocytes/100 WBC (Bld) 9.0 % Normal 0-10 [facility] Comment on above: Performed By: #### L 100.0100, L500.2500 ####[facility] [address] [place], [address] Neutrophils/100 WBC (Bld) 73.8 % High 47-70 [facility] Comment on above: Performed By: #### L 100.0100, L500.2500 ####[facility] [address] [place], [address] Nucleated RBC (Bld) [#/Vol] 0 10*3/uL Normal 0-5 [facility] Comment on above: Performed By: #### L 100.0100, L500.2500 ####[facility] [address] [place], [address] Platelet mean volume (Bld) [Entitic vol] 9.1 fL Normal 6.2-12.0 [facility] Comment on above: Performed By: #### L 100.0100, L500.2500 ####[facility] [address] [place], [address] Platelets (Bld) [#/Vol] 296 10*3/uL Normal 150-450 [facility] Comment on above: Performed By: #### L 100.0100, L500.2500 ####[facility] [address] [place], [address] RBC (Bld) [#/Vol] 3.92 10*6/uL Low 4.2-5.4 [facility] Comment on above: Performed By: #### L 100.0100, L500.2500 ####[facility] [address] [place], [address] RDW SD 46.2 fl High 35.1-43.9 [facility] Comment on above: Performed By: #### L 100.0100, L500.2500 ####[facility] [address] [place], [address] WBC (Bld) [#/Vol] 8.0 10*3/uL Normal 4.4-11.0 [facility] Comment on above: Performed By: #### L 100.0100, L500.2500 ####[facility] [address] [place], [address] Emergency Department Summary on 04-11-2024 Emergency Department Summary Normal [facility] H AND P Exam - Hospitaliston 04-11-2024 H&P Exam - Hospitalist Normal [facility] Lumbar Spine 2 or 3 Viewson 04-11-2024 Lumbar Spine 2 or 3 Views Normal [facility] Emergency Department Summary on 03-30-2024 Emergency Department Summary Normal [facility] HIP, UNI W/ Pelvis 2-3 Views on 03-30-2024 HIP, UNI W/ Pelvis 2-3 Views Normal [facility] Lumbar Spine 2 or 3 Viewson 03-30-2024 Lumbar Spine 2 or 3 Views Normal [facility] Brain/Head without Contrasto n 02-25-2024 Brain/Head without Contrast Normal [facility] Emergency Department Summary on 02-25-2024 Emergency Department Summary Normal [facility] Spine Cervical without Contr ason 02-25-2024 Spine Cervical without Contras Normal [facility] Gastroenterology Visit Repor ton 02-23-2024 Gastroenterology Visit Report Normal [facility] Re-Evaluation - PT (1)on Re-Evaluation - PT (1) Normal [facility] Dexa Bone Density/Append Ske sergio 01-08-2024 Dexa Bone Density/Append Skel Normal [facility] Inital Evaluation (1) - PTon 12-28-2023 Inital Evaluation (1) - PT Normal [facility] CBC W/Diff, Automatedon - Absolute Lymph 1.16 X10 3/uL Normal 0.83-4.51 [facility] Comment on above: Performed By: #### L 506.1000, L500.4050, L501.9520, L100.0100, L500.4100 ####[facility] [address] [place], [address] Absolute Neut 3.8 X10 3/uL Normal 2.0-7.7 [facility] Comment on above: Performed By: #### L 506.1000, L500.4050, L501.9520, L100.0100, L500.4100 ####[facility] [address] [place], [address] Basophils/100 WBC (Bld) 0.7 % Normal 0-1 [facility] Comment on above: Performed By: #### L 506.1000, L500.4050, L501.9520, L100.0100, L500.4100 ####[facility] [address] [place], [address] Eosinophils/100 WBC (Bld) 2.1 % Normal 0-5 [facility] Comment on above: Performed By: #### L 506.1000, L500.4050, L501.9520, L100.0100, L500.4100 ####[facility] [address] [place], [address] Erythrocyte distribution width (RBC) [Ratio] 13.0 % Normal 11.6-14.6 [facility] Comment on above: Performed By: #### L 506.1000, L500.4050, L501.9520, L100.0100, L500.4100 ####[facility] [address] [place], [address] Hematocrit (Bld) [Volume fraction] 40.5 % Normal 37-47 [facility] Comment on above: Performed By: #### L 506.1000, L500.4050, L501.9520, L100.0100, L500.4100 ####[facility] [address] [place], [address] Hemoglobin (Bld) [Mass/Vol] 12.8 g/dL Normal 12.0-15. 0 [facility] Comment on above: Performed By: #### L 506.1000, L500.4050, L501.9520, L100.0100, L500.4100 ####[facility] [address] [place], [address] IG% 0.500 Normal 0.0-0.9 [facility] Comment on above: Result Comment: IG% - Immature Granulocytes (promyelocytes, myelocytes andmetamyelocytes) > 1% indicates that a LEFT SHIFT is Present. Performed By: #### L 506.1000, L500.4050, L501.9520, L100.0100, L500.4100 ####[facility] [address] [place], [address] Lymphocytes/100 WBC (Bld) 20.4 % Normal 19-41 [facility] Comment on above: Performed By: #### L 506.1000, L500.4050, L501.9520, L100.0100, L500.4100 ####[facility] [address] [place], [address] MCH (RBC) [Entitic mass] 31.7 pg Normal 27.0-32.0 [facility] Comment on above: Performed By: #### L 506.1000, L500.4050, L501.9520, L100.0100, L500.4100 ####[facility] [address] [place], [address] MCHC (RBC) [Mass/Vol] 31.6 g/dL Low 32-36 [facility] Comment on above: Performed By: #### L 506.1000, L500.4050, L501.9520, L100.0100, L500.4100 ####[facility] [address] [place], [address] MCV (RBC) [Entitic vol] 100.2 fL High 81-99 [facility] Comment on above: Performed By: #### L 506.1000, L500.4050, L501.9520, L100.0100, L500.4100 ####[facility] [address] [place], [address] Monocytes/100 WBC (Bld) 9.3 % Normal 0-10 [facility] Comment on above: Performed By: #### L 506.1000, L500.4050, L501.9520, L100.0100, L500.4100 ####[facility] [address] [place], [address] Neutrophils/100 WBC (Bld) 67.0 % Normal 47-70 [facility] Comment on above: Performed By: #### L 506.1000, L500.4050, L501.9520, L100.0100, L500.4100 ####[facility] [address] [place], [address] Nucleated RBC (Bld) [#/Vol] 0 10*3/uL Normal 0-5 [facility] Comment on above: Performed By: #### L 506.1000, L500.4050, L501.9520, L100.0100, L500.4100 ####[facility] [address] [place], [address] Platelet mean volume (Bld) [Entitic vol] 9.3 fL Normal 6.2-12.0 [facility] Comment on above: Performed By: #### L 506.1000, L500.4050, L501.9520, L100.0100, L500.4100 ####[facility] [address] [place], [address] Platelets (Bld) [#/Vol] 213 10*3/uL Normal 150-450 [facility] Comment on above: Performed By: #### L 506.1000, L500.4050, L501.9520, L100.0100, L500.4100 ####[facility] [address] [place], [address] RBC (Bld) [#/Vol] 4.04 10*6/uL Low 4.2-5.4 [facility] Comment on above: Performed By: #### L 506.1000, L500.4050, L501.9520, L100.0100, L500.4100 ####[facility] [address] [place], [address] RDW SD 48.1 fl High 35.1-43.9 [facility] Comment on above: Performed By: #### L 506.1000, L500.4050, L501.9520, L100.0100, L500.4100 ####[facility] [address] [place], [address] WBC (Bld) [#/Vol] 5.7 10*3/uL Normal 4.4-11.0 [facility] Comment on above: Performed By: #### L 506.1000, L500.4050, L501.9520, L100.0100, L500.4100 ####[facility] [address] [place], [address] Comprehensive [facility] 12-15-2023 Albumin [Mass/Vol] 3.4 g/dL Normal 3.2-5.0 [facility] Comment on above: Performed By: #### L 506.1000, L500.4050, L501.9520, L100.0100, L500.4100 ####[facility] [address] [place], [address] Albumin/Globulin [Mass ratio] 0.8 {ratio} Low 0.9-2.4 [facility] Comment on above: Performed By: #### L 506.1000, L500.4050, L501.9520, L100.0100, L500.4100 ####[facility] [address] [place], [address] ALK P 76 U/L Normal 45-117 [facility] Comment on above: Performed By: #### L 506.1000, L500.4050, L501.9520, L100.0100, L500.4100 ####[facility] [address] [place], [address] ALT [Catalytic activity/Vol] 22 U/L Normal 13-56 [facility] Comment on above: Performed By: #### L 506.1000, L500.4050, L501.9520, L100.0100, L500.4100 ####[facility] [address] [place], [address] AST [Catalytic activity/Vol] 20 U/L Normal 15-37 [facility] Comment on above: Performed By: #### L 506.1000, L500.4050, L501.9520, L100.0100, L500.4100 ####[facility] [address] [place], [address] Bilirubin [Mass/Vol] 0.40 mg/dL Normal 0.20-1.00 [facility] Comment on above: Result Comment: For patients on eltrombopag therapy, use of Dimension [place] TBIL is not recommended. Performed By: #### L 506.1000, L500.4050, L501.9520, L100.0100, L500.4100 ####[facility] [address] [place], [address] BUN/CRE 25.6 RATIO High 10-20 [facility] Comment on above: Performed By: #### L 506.1000, L500.4050, L501.9520, L100.0100, L500.4100 ####[facility] [address] [place], [address] CA,Total 9.4 mg/dL Normal 8.5-10.1 [facility] Comment on above: Performed By: #### L 506.1000, L500.4050, L501.9520, L100.0100, L500.4100 ####[facility] [address] [place], [address] Chloride [Moles/Vol] 103 mmol/L Normal 98-107 [facility] Comment on above: Performed By: #### L 506.1000, L500.4050, L501.9520, L100.0100, L500.4100 ####[facility] [address] [place], [address] CO2 [Moles/Vol] 29.0 mmol/L Normal 21.0-32.0 [facility] Comment on above: Performed By: #### L 506.1000, L500.4050, L501.9520, L100.0100, L500.4100 ####[facility] [address] [place], [address] Creatinine [Mass/Vol] 0.78 mg/dL Normal 0.55-1.02 [facility] Comment on above: Result Comment: The validity of the calculated GFR GFRAA in patients over70 years has not been determined. Clinical correlation isessential. Performed By: #### L 506.1000, L500.4050, L501.9520, L100.0100, L500.4100 ####[facility] [address] [place], [address] EST GFR - AA 92 mL/min Normal >60 [facility] Comment on above: Result Comment: Afri can [place] GFR Calc Performed By: #### L 506.1000, L500.4050, L501.9520, L100.0100, L500.4100 ####[facility] [address] [place], [address] GAP 6 Normal 5-15 [facility] Comment on above: Performed By: #### L 506.1000, L500.4050, L501.9520, L100.0100, L500.4100 ####[facility] [address] [place], [address] GFR/1.73 sq M.predicted among non-blacks MDRD (S/P/Bld) [Vol rate/Area] 76 mL/min/{1.73_m2} Normal >60 [facility] Comment on above: Result Comment: Non- GFR Calc Performed By: #### L 506.1000, L500.4050, L501.9520, L100.0100, L500.4100 ####[facility] [address] [place], [address] Globulin (S) [Mass/Vol] 4.2 g/dL Normal 2.2-4.2 [facility] Comment on above: Performed By: #### L 506.1000, L500.4050, L501.9520, L100.0100, L500.4100 ####[facility] [address] [place], [address] Glucose [Mass/Vol] 100 mg/dL Normal 74-106 [facility] Comment on above: Result Comment: Fast ing Glucose result from 100 to 125 mg/dLsuggests IMPAIRED HOMEOSTASIS per A.D.A. criteria. Performed By: #### L 506.1000, L500.4050, L501.9520, L100.0100, L500.4100 ####[facility] [address] [place], [address] Potassium [Moles/Vol] 4.2 mmol/L Normal 3.5-5.1 [facility] Comment on above: Performed By: #### L 506.1000, L500.4050, L501.9520, L100.0100, L500.4100 ####[facility] [address] [place], [address] Sodium [Moles/Vol] 138 mmol/L Normal 136-145 [facility] Comment on above: Performed By: #### L 506.1000, L500.4050, L501.9520, L100.0100, L500.4100 ####[facility] [address] [place], [address] T PROT 7.6 g/dL Normal 6.4-8.2 [facility] Comment on above: Performed By: #### L 506.1000, L500.4050, L501.9520, L100.0100, L500.4100 ####[facility] [address] [place], [address] Urea nitrogen [Mass/Vol] 20 mg/dL High 7-18 [facility] Comment on above: Performed By: #### L 506.1000, L500.4050, L501.9520, L100.0100, L500.4100 ####[facility] [address] [place], [address] Lipid Profileon 12-15-2023 Cholesterol [Mass/Vol] 176 mg/dL Normal 200 [facility] Comment on above: Result Comment: <200 mg/dL Desirable 200-240 mg/dL Borderline >240 mg/dL High Risk Performed By: #### L 506.1000, L500.4050, L501.9520, L100.0100, L500.4100 ####[facility] [address] [place], [address] Cholesterol in HDL [Mass/Vol] 74 mg/dL Normal [facility] Comment on above: Result Comment: The drugs N-Acetylcysteine and Metamizole may falselydepress this assay. Reference Range HDL <40 mg/dL Low HDL Cholesterol HDL >or= 60 mg/dL High HDL Cholesterol Performed By: #### L 506.1000, L500.4050, L501.9520, L100.0100, L500.4100 ####[facility] [address] [place], [address] Cholesterol in LDL [Mass/Vol] 93 mg/dL Normal 0-130 [facility] Comment on above: Performed By: #### L 506.1000, L500.4050, L501.9520, L100.0100, L500.4100 ####[facility] [address] [place], [address] Cholesterol in VLDL [Mass/Vol] 9 mg/dL Normal 5-40 [facility] Comment on above: Performed By: #### L 506.1000, L500.4050, L501.9520, L100.0100, L500.4100 ####[facility] [address] [place], [address] Triglyceride [Mass/Vol] 46 mg/dL Normal [facility] Comment on above: Result Comment: The drugs N-Acetylcysteine and Metamizole may falselydepress this assay.Serum Triglycerides Reference Interval Normal <150 mg/dL Borderline high 150 - 199 mg/dL High 200 - 499 mg/dL Very High > or = 500 mg/dL Performed By: #### L 506.1000, L500.4050, L501.9520, L100.0100, L500.4100 ####[facility] [address] [place], [address] Thyroid Stim Hormone (TSH)on 12-15-2023 TSH 0.871 uIU/mL Normal 0.358-3.740 [facility] Comment on above: Performed By: #### L 506.1000, L500.4050, L501.9520, L100.0100, L500.4100 ####[facility] [address] [place], [address] Vitamin D,25 Hydroxyon 12-14 Vitamin D 25-OH 68.6 ng/mL Normal [facility] Comment on above: Result Comment: Yesenia min D 25(OH) Status Range Deficiency <20 ng/mL (50nmol/L) Insufficiency 20 - 30 ng/mL (50 - 75 nmol/L) Sufficiency 30 - 100 ng/mL (75 - 250 nmol/L) Toxicity >100 ng/mL (>250 nmol/L) Performed By: #### L 506.1000, L500.4050, L501.9520, L100.0100, L500.4100 ####[facility] [address] [place], [place], [address] Absolute lymphocyte countOrd ered By: Michael Snowden on 05-28-2023 Lymphocytes Auto (Unsp spec) [#/Vol] 1.31 10*3/uL 0.83-4.51 [facility] Automated lymphocyte count a s percentage of total leukocytesOrdered By: Michael Snowden on 05-28-2023 Lymphocytes/100 WBC Auto (Unsp spec) 20.5 % 19-41 [facility] Basophil percentageOrdered B y: Michael Snowden on 05-28-2023 Basophils/100 WBC (Bld) 0.5 % 0-1 [facility] Bilirubin [Mass/Vol] 0.80 mg/dL 0.20-1.00 [facility] Comment on above: For patients on eltr ombopag therapy, use of Dimension [place] TBIL is not recommended. Chloride [Moles/Vol] 106 mmol/L 98-107 [facility] Cholesterol [Mass/Vol] 168 mg/dL <200 [facility] Comment on above: <200 mg/dL Desirable 200-240 mg/dL Borderline >240 mg/dL High Risk Eosinophils/100 WBC (Bld) 2.4 % 0-5 [facility] Glucose [Mass/Vol] 87 mg/dL 74-106 [facility] Hemoglobin (Bld) [Mass/Vol] 12.7 g/dL 12.0-15. 0 [facility] Monocytes/100 WBC (Bld) 8.9 % 0-10 [facility] Neutrophils (Bld) [#/Vol] 4.3 10*3/uL 2.0-7.7 [facility] Neutrophils/100 WBC (Bld) 67.4 % 47-70 [facility] Potassium [Moles/Vol] 4.0 mmol/L 3.5-5.1 [facility] Protein [Mass/Vol] 7.6 g/dL 6.4-8.2 [facility] Sodium [Moles/Vol] 139 mmol/L 136-145 [facility] Triglyceride [Mass/Vol] 103 mg/dL <199 [facility] Comment on above: The drugs N-Acetylcy steine and Metamizole may falsely depress this assay.Serum Triglycerides Reference Interval Normal <150 mg/dL Borderline high 150 - 199 mg/dL High 200 - 499 mg/dL Very High > or = 500 mg/dL WBC (Bld) [#/Vol] 6.4 10*3/uL 4.4-11.0 [facility] Determination of erythrocyte mean corpuscular volume (MCV)Ordered By: Michael Snowden on 05-28-2023 MCV (RBC) [Entitic vol] 100.8 fL 81-99 [facility] Erythrocyte distribution wid th ratioOrdered By: Michael Snowden 05-28-2023 Erythrocyte distribution width (RBC) [Ratio] 13.2 % 11.6-14.6 [facility] Erythrocyte distribution wid th standard deviationOrdered By: Michael Snowden 05-28-2023 Erythrocyte distribution width (RBC) [Entitic vol] 48.9 fL 35.1-43.9 [facility] Hematocrit Auto (Bld) [Volum e fraction]Ordered By: Michael Snowden on 05-28-2023 Hematocrit (Bld) [Volume fraction] 39.4 % 37-47 [facility] Immature granulocytes/100 WB C Auto (Bld)Ordered By: Michael Snowden on 05-28-2023 Immature granulocytes/100 WBC (Bld) 0.300 % 0.0-0.9 [facility] Comment on above: IG% - Immature Granu locytes (promyelocytes, myelocytes and metamyelocytes) > 1% indicates that a LEFT SHIFT is Present. Laboratory - Chemistry and C hemistry - challengeOrdered By: Michael Snowden on 05-28-2023 Albumin/Globulin [Mass ratio] 0.8 {ratio} 0.9-2.4 [facility] ALP [Catalytic activity/Vol] 78 U/L 45-117 [facility] ALT [Catalytic activity/Vol] 29 U/L 13-56 [facility] Cholesterol in HDL [Mass/Vol] 70 mg/dL >40 [facility] Comment on above: The drugs N-Acetylcy steine and Metamizole may falsely depress this assay. Reference Range HDL <40 mg/dL Low HDL Cholesterol HDL >or= 60 mg/dL High HDL Cholesterol Cholesterol in LDL [Mass/Vol] 77 mg/dL 0-130 [facility] CO2 [Moles/Vol] 28.0 mmol/L 21.0-32.0 [facility] Globulin (S) [Mass/Vol] 4.2 g/dL 2.2-4.2 [facility] Urea nitrogen/Creatinine [Mass ratio] 22.7 mg/mg 10-20 [facility] - Hematology and Cell countsOrdered By: Michael Snowden on 05-28-2023 MCH (RBC) [Entitic mass] 32.5 pg 27.0-32.0 [facility] MCHC (RBC) [Mass/Vol] 32.2 g/dL 32-36 [facility] Nucleated RBC/100 WBC (Bld) [Ratio] 0 % 0-5 [facility] Platelet mean volume (Bld) [Entitic vol] 9.8 fL 6.2-12.0 [facility] Platelets (Bld) [#/Vol] 219 10*3/uL 150-450 [facility] No Panel InformationOrdered By: Michael Snowden on 05-28-2023 Estimated GFR (MDRD) Amer 97 mL/min >60 [facility] Comment on above: GFR Calc Estimated GFR (MDRD) Non-Af Amer 80 mL/min >60 [facility] Comment on above: Non- GFR Calc Vitamin D 25-Hydroxy 81.9 ng/mL [facility] Comment on above: Vitamin D 25(OH) Sta tus Range Deficiency <20 ng/mL (50nmol/L) Insufficiency 20 - 30 ng/mL (50 - 75 nmol/L) Sufficiency 30 - 100 ng/mL (75 - 250 nmol/L) Toxicity >100 ng/mL (>250 nmol/L) VLDL Cholesterol 21 mg/dL 5-40 [facility] RBC Auto (Bld) [#/Vol]Ordere d By: Michael Snowden on 05-28-2023 RBC (Bld) [#/Vol] 3.91 10*6/uL 4.2-5.4 [facility] Serum or plasma calcium gianluca urement (mass/volume)Ordered By: Michael Snowden on 05-28-2023 Calcium [Mass/Vol] 9.0 mg/dL 8.5-10.1 [facility] Serum or plasma creatinine m easurement (mass/volume)Ordered By: Michael Snowden on 05-28-2023 Creatinine [Mass/Vol] 0.75 mg/dL 0.55-1.02 [facility] Comment on above: The validity of the calculated GFR & GFRAA in patients over 70 years has not been determined. Clinical correlation is essential. Serum or plasma thyroid stim ulating hormone (TSH) measurement (units/volume)Ordered By: Michael Snowden on 05-28-2023 TSH Qn 1.09 uIU/mL 0.358-3.74 [facility] Serum or plasma urea nitroge n measurement (mass/volume)Ordered By: Michael Snowden on 05-28-2023 Urea nitrogen [Mass/Vol] 17 mg/dL 7-18 [facility] Thin prep Papanicolaou smear with manual screeningOrdered By: Michael Snowden on 05-28-2023 Thin prep Papanicolaou smear with manual screening 3.4 g/dL 3.2-5.0 [facility] Thin prep Papanicolaou smear with manual screening 23 U/L 15-37 [facility] Thin prep Papanicolaou smear with manual screening 5 5-15 [facility] Absolute lymphocyte countOrd ered By: Gaetano Cleary on 05-09-2023 Lymphocytes Auto (Unsp spec) [#/Vol] 1.22 10*3/uL 0.83-4.51 [facility] Automated lymphocyte count a s percentage of total leukocytesOrdered By: Gaetano Cleary on 05-09-2023 Lymphocytes/100 WBC Auto (Unsp spec) 20.0 % 19-41 [facility] Basophil percentageOrdered B y: Gaetano Cleary on 05-09-2023 Basophils/100 WBC (Bld) 0.7 % 0-1 [facility] Eosinophils/100 WBC (Bld) 2.3 % 0-5 [facility] Hemoglobin (Bld) [Mass/Vol] 12.3 g/dL 12.0-15. 0 [facility] Monocytes/100 WBC (Bld) 8.4 % 0-10 [facility] Neutrophils (Bld) [#/Vol] 4.2 10*3/uL 2.0-7.7 [facility] Neutrophils/100 WBC (Bld) 68.1 % 47-70 [facility] WBC (Bld) [#/Vol] 6.1 10*3/uL 4.4-11.0 [facility] Determination of erythrocyte mean corpuscular volume (MCV)Ordered By: Gaetano Cleary on 05-09-2023 MCV (RBC) [Entitic vol] 100.8 fL 81-99 [facility] Erythrocyte distribution wid th ratioOrdered By: Gaetano Cleary on 05-09-2023 Erythrocyte distribution width (RBC) [Ratio] 13.2 % 11.6-14.6 [facility] Erythrocyte distribution wid th standard deviationOrdered By: Gaetano Cleary on 05-09-2023 Erythrocyte distribution width (RBC) [Entitic vol] 49.1 fL 35.1-43.9 [facility] Erythrocyte sedimentation ra teOrdered By: Gaetano Cleary on 05-09-2023 ESR (Bld) [Velocity] 18 mm/h 0-30 [facility] Hematocrit Auto (Bld) [Volum e fraction]Ordered By: Gaetano Cleary on 05-09-2023 Hematocrit (Bld) [Volume fraction] 39.9 % 37-47 [facility] Immature granulocytes/100 WB C Auto (Bld)Ordered By: Gaetano Cleary on 05-09-2023 Immature granulocytes/100 WBC (Bld) 0.500 % 0.0-0.9 [facility] Comment on above: IG% - Immature Granu locytes (promyelocytes, myelocytes and metamyelocytes) > 1% indicates that a LEFT SHIFT is Present. Laboratory - Hematology and Cell countsOrdered By: Gaetano Cleary on 05-09-2023 MCH (RBC) [Entitic mass] 31.1 pg 27.0-32.0 [facility] MCHC (RBC) [Mass/Vol] 30.8 g/dL 32-36 [facility] Nucleated RBC/100 WBC (Bld) [Ratio] 0 % 0-5 [facility] Platelet mean volume (Bld) [Entitic vol] 9.8 fL 6.2-12.0 [facility] Platelets (Bld) [#/Vol] 225 10*3/uL 150-450 [facility] No Panel InformationOrdered By: Gaetano Cleary on 05-09-2023 C-Reactive Protein Extended Range < 2.90 mg/L 0.0-3.0 [facility] Comment on above: C-Reactive Protein ( CRP) provides useful information for thediagnosis, therapy and monitoring of inflammatory processesand associated diseases. For the evaluation of Relative Riskfor Cardiovascular Disease, a High Sensitivity CRP (HSCRP)should be ordered. RBC Auto (Bld) [#/Vol]Ordere d By: Gaetano Cleary on 05-09-2023 RBC (Bld) [#/Vol] 3.96 10*6/uL 4.2-5.4 [facility] Absolute lymphocyte countOrd ered By: Michael Snowden on 11-27-2022 Lymphocytes Auto (Unsp spec) [#/Vol] 1.24 10*3/uL 0.83-4.51 [facility] Basophil percentageOrdered B y: Michael Snowden on 11-27-2022 Basophils/100 WBC (Bld) 0.8 % 0-1 [facility] Bilirubin [Mass/Vol] 0.30 mg/dL 0.20-1.00 [facility] Comment on above: For patients on eltr ombopag therapy, use of Dimension [place] TBIL is not recommended. Chloride [Moles/Vol] 110 mmol/L 98-107 [facility] Cholesterol [Mass/Vol] 169 mg/dL <200 [facility] Comment on above: <200 mg/dL Desirable 200-240 mg/dL Borderline >240 mg/dL High Risk Eosinophils/100 WBC (Bld) 2.5 % 0-5 [facility] Glucose [Mass/Vol] 93 mg/dL 74-106 [facility] Neutrophils (Bld) [#/Vol] 3.3 10*3/uL 2.0-7.7 [facility] Neutrophils/100 WBC (Bld) 63.1 % 47-70 [facility] Potassium [Moles/Vol] 4.1 mmol/L 3.5-5.1 [facility] Protein [Mass/Vol] 7.4 g/dL 6.4-8.2 [facility] Sodium [Moles/Vol] 143 mmol/L 136-145 [facility] Triglyceride [Mass/Vol] 57 mg/dL <199 [facility] Comment on above: The drugs N-Acetylcy steine and Metamizole may falsely depress this assay.Serum Triglycerides Reference Interval Normal <150 mg/dL Borderline high 150 - 199 mg/dL High 200 - 499 mg/dL Very High > or = 500 mg/dL WBC (Bld) [#/Vol] 5.2 10*3/uL 4.4-11.0 [facility] Blood erythrocytes count (nu mber/volume)Ordered By: Michael Snowden on 11-27-2022 RBC (Bld) [#/Vol] 3.78 10*6/uL 4.2-5.4 [facility] Blood hemoglobin measurement (mass/volume)Ordered By: Michael Snowden on 11-27-2022 Hemoglobin (Bld) [Mass/Vol] 11.9 g/dL 12.0-15. 0 [facility] Blood lymphocytes/100 leukoc ytesOrdered By: Michael Snowden on 11-27-2022 Lymphocytes/100 WBC (Bld) 23.8 % 19-41 [facility] Blood monocytes/100 leukocyt esOrdered By: Michael Snowden on 11-27-2022 Monocytes/100 WBC (Bld) 9.4 % 0-10 [facility] Blood platelet mean volumeOr dered By: Michael Snowden on 11-27-2022 Platelet mean volume (Bld) [Entitic vol] 10.0 fL 6.2-12.0 [facility] Determination of erythrocyte mean corpuscular volume (MCV)Ordered By: Michael Snowden on 11-27-2022 MCV (RBC) [Entitic vol] 100.0 fL 81-99 [facility] Hematocrit Auto (Bld) [Volum e fraction]Ordered By: Michael Sp on 11-27-2022 Hematocrit (Bld) [Volume fraction] 37.8 % 37-47 [facility] Laboratory - Chemistry and C hemistry - challengeOrdered [facility]: [facility] ALP [Catalytic activity/Vol] 68 U/L 45-117 [facility] ALT [Catalytic activity/Vol] 22 U/L 13-56 [facility] CO2 [Moles/Vol] 28.0 mmol/L 21.0-32.0 [facility] Globulin (S) [Mass/Vol] 4.1 g/dL 2.2-4.2 [facility] Urea nitrogen/Creatinine [Mass ratio] 21.3 mg/mg 10-20 [facility] Laboratory - Hematology and Cell countsOrdered By: [facility] on 11-27-2022 Erythrocyte distribution width (RBC) [Entitic vol] 47.8 fL 35.1-43.9 [facility] Erythrocyte distribution width (RBC) [Ratio] 13.1 % 11.6-14.6 [facility] Immature granulocytes/100 WBC (Bld) 0.400 % 0.0-0.9 [facility] Comment on above: IG% - Immature Granu locytes (promyelocytes, myelocytes and metamyelocytes) > 1% indicates that a LEFT SHIFT is Present. MCH (RBC) [Entitic mass] 31.5 pg 27.0-32.0 [facility] Nucleated RBC/100 WBC (Bld) [Ratio] 0 % 0-5 [facility] MCHC Auto (RBC) [Mass/Vol]Or dered By: Michael Snowden on 11-27-2022 MCHC (RBC) [Mass/Vol] 31.5 g/dL 32-36 [facility] No Panel InformationOrdered By: Michael Snowden on 11-27-2022 Estimated GFR (MDRD) Amer 112 mL/min >60 [facility] Comment on above: GFR Calc Estimated GFR (MDRD) Non-Af Amer 93 mL/min >60 [facility] Comment on above: Non- GFR Calc Thyroid Stimulating Hormone (TSH) 0.84 uIU/mL 0.358-3.74 [facility] Vitamin D 25-Hydroxy 87.7 ng/mL [facility] Comment on above: Vitamin D 25(OH) Sta tus Range Deficiency <20 ng/mL (50nmol/L) Insufficiency 20 - 30 ng/mL (50 - 75 nmol/L) Sufficiency 30 - 100 ng/mL (75 - 250 nmol/L) Toxicity >100 ng/mL (>250 nmol/L) Platelets bldOrdered By: Michael Snowden on 11-27-2022 Platelets (Bld) [#/Vol] 214 10*3/uL 150-450 [facility] Serum or plasma albumin gianluca urement (mass/volume)Ordered By: Michael Snowden on 11-27-2022 Albumin [Mass/Vol] 3.3 g/dL 3.2-5.0 [facility] Serum or plasma albumin/glob ulin mass ratioOrdered By: Michael Snowden on 11-27-2022 Albumin/Globulin [Mass ratio] 0.8 {ratio} 0.9-2.4 [facility] Serum or plasma calcium gianluca urement (mass/volume)Ordered By: Michael Snowden on 11-27-2022 Calcium [Mass/Vol] 9.2 mg/dL 8.5-10.1 [facility] Serum or plasma cholesterol in HDL measurement (mass/volume)Ordered By: Michael Snowden 11-27-2022 Cholesterol in HDL [Mass/Vol] 66 mg/dL >40 [facility] Comment on above: The drugs N-Acetylcy steine and Metamizole may falsely depress this assay. Reference Range HDL <40 mg/dL Low HDL Cholesterol HDL >or= 60 mg/dL High HDL Cholesterol Serum or plasma cholesterol in VLDL measurement (mass/volume)Ordered By: Michael Snowden on 11-27-2022 Cholesterol in VLDL [Mass/Vol] 11 mg/dL 5-40 [facility] Serum or plasma creatinine m easurement (mass/volume)Ordered By: Michael Snowden 11-27-2022 Creatinine [Mass/Vol] 0.66 mg/dL 0.55-1.02 [facility] Comment on above: The validity of the calculated GFR & GFRAA in patients over 70 years has not been determined. Clinical correlation is essential. Serum or plasma low density lipoprotein (LDL) cholesterol measurement (mass/volume)Ordered By: Michael Snowden on 11-27-2022 Cholesterol in LDL [Mass/Vol] 92 mg/dL 0-130 [facility] Serum or plasma urea nitroge n measurement (mass/volume)Ordered By: Michael Snowden on 11-27-2022 Urea nitrogen [Mass/Vol] 14 mg/dL 7-18 [facility] Thin prep Papanicolaou smear with manual screeningOrdered By: Michael Snowden on 11-27-2022 Thin prep Papanicolaou smear with manual screening 21 U/L 15-37 [facility] Thin prep Papanicolaou smear with manual screening 5 5-15 [facility] No Panel InformationOrdered By: Sae Brandt on 08-05-2022 Stool Calprotectin 32 ug/g 0-120 [facility] Comment on above: Concentration Interp retation Follow-Up<16 - 50 ug/g Normal None>50 -120 ug/g Borderline Re-evaluate in 4-6 weeks >120 ug/g Abnormal Repeat as clinically indicatedPerformed at: [facility] [id number] [id number] Director: Alaina Alex MD, Phone: [phone] Stool Pancreatic Elastase 202 >200 [facility] Comment on above: Result Units: ug [address]./g Severe Pancreatic Insufficiency: <100 Moderate Pancreatic Insufficiency: 100 - 200 Normal: >200Performed at: [facility] [id number] [id number] Director: Alaina Alex MD, Phone: [phone] Stool lactoferrin detection by immunoassayOrdered By: Sae Brandt on 08-05-2022 Lactoferrin IA Ql (Stl) [facility] Lactoferrin IA Ql (Stl) [facility] Absolute lymphocyte countOrd ered By: Sae Brandt on 06-07-2022 Lymphocytes Auto (Unsp spec) [#/Vol] 1.34 10*3/uL 0.83-4.51 [facility] Atypical perinuclear antineu trophil cytoplasmic antibodies measurementOrdered By: Sae Friend on 06-07-2022 Neutrophil cytoplasmic Ab.perinuclear.atypical IF (S) [Titer] <1:20 titer Neg:<1:20 [facility] Comment on above: The atypical pANCA p attern has been observed in asignificant percentage of patients with ulcerative colitis,primary sclerosing cholangitis and autoimmune hepatitis.Performed at: - [facility] [address] [id number] Director: Olivier Jenkins PhD, Phone: [phone] at: - [facility] [address] [id number] Director: Alaina Alex MD, Phone: [phone] Basophil percentageOrdered B y: Sae Friend on 06-07-2022 Basophil percentage < 0.2 AI 0.0-0.9 [facility] Basophils/100 WBC (Bld) 0.9 % 0-1 [facility] Bilirubin [Mass/Vol] 0.40 mg/dL 0.20-1.00 [facility] Comment on above: For patients on eltr ombopag therapy, use of Dimension [place] TBIL is not recommended. Chloride [Moles/Vol] 103 mmol/L 98-107 [facility] Eosinophils/100 WBC (Bld) 2.3 % 0-5 [facility] Glucose [Mass/Vol] 85 mg/dL 74-106 [facility] LDH [Catalytic activity/Vol] 226 U/L 84-246 [facility] Neutrophils (Bld) [#/Vol] 4.5 10*3/uL 2.0-7.7 [facility] Neutrophils/100 WBC (Bld) 67.7 % 47-70 [facility] Potassium [Moles/Vol] 3.6 mmol/L 3.5-5.1 [facility] Protein [Mass/Vol] 7.6 g/dL 6.4-8.2 [facility] Sodium [Moles/Vol] 140 mmol/L 136-145 [facility] WBC (Bld) [#/Vol] 6.6 10*3/uL 4.4-11.0 [facility] Blood erythrocytes count (nu mber/volume)Ordered By: Sae Brandt on 06-07-2022 RBC (Bld) [#/Vol] 4.03 10*6/uL 4.2-5.4 [facility] Blood hemoglobin measurement (mass/volume)Ordered By: Sae Brandt on 06-07-2022 Hemoglobin (Bld) [Mass/Vol] 13.0 g/dL 12.0-15. 0 [facility] Blood lymphocytes/100 leukoc ytesOrdered By: Sae Brandt on 06-07-2022 Lymphocytes/100 WBC (Bld) 20.2 % 19-41 [facility] Blood monocytes/100 leukocyt esOrdered By: Sae Brandt on 06-07-2022 Monocytes/100 WBC (Bld) 8.6 % 0-10 [facility] Blood platelet mean volumeOr dered By: Sae Brandt on 06-07-2022 Platelet mean volume (Bld) [Entitic vol] 9.5 fL 6.2-12.0 [facility] Determination of erythrocyte mean corpuscular volume (MCV)Ordered By: Sae Brandt on 06-07-2022 MCV (RBC) [Entitic vol] 99.5 fL 81-99 [facility] Erythrocyte sedimentation ra teOrdered By: Sae Brandt on 06-07-2022 ESR (Bld) [Velocity] 30 mm/h 0-30 [facility] Hematocrit Auto (Bld) [Volum e fraction]Ordered By: Sae Brandt on 06-07-2022 Hematocrit (Bld) [Volume fraction] 40.1 % 37-47 [facility] Interpretation of serum or p lasma protein pattern by immunofixation (narrative resultOrdered By: Sae Brandt on 06-07-2022 Protein Fractions Immunofixation Micheal [Interp] See comment [facility] Comment on above: NOT OBSERVED Laboratory - Chemistry and C hemistry - challengeOrdered By: aSe Brandt on 06-07-2022 ALP [Catalytic activity/Vol] 72 U/L 45-117 [facility] ALT [Catalytic activity/Vol] 25 U/L 13-56 [facility] CO2 [Moles/Vol] 29.0 mmol/L 21.0-32.0 [facility] Urea nitrogen/Creatinine [Mass ratio] 16.9 mg/mg 10-20 [facility] Laboratory - Hematology and Cell countsOrdered By: Sae Brandt on 06-07-2022 Erythrocyte distribution width (RBC) [Entitic vol] 48.0 fL 35.1-43.9 [facility] Erythrocyte distribution width (RBC) [Ratio] 13.1 % 11.6-14.6 [facility] Immature granulocytes/100 WBC (Bld) 0.300 % 0.0-0.9 [facility] Comment on above: IG% - Immature Granu locytes (promyelocytes, myelocytes and metamyelocytes) > 1% indicates that a LEFT SHIFT is Present. MCH (RBC) [Entitic mass] 32.3 pg 27.0-32.0 [facility] Nucleated RBC/100 WBC (Bld) [Ratio] 0 % 0-5 [facility] MCHC Auto (RBC) [Mass/Vol]Or dered By: Sae Brandt on 06-07-2022 MCHC (RBC) [Mass/Vol] 32.4 g/dL 32-36 [facility] No Panel InformationOrdered By: Sae Brandt on 06-07-2022 Addendum Document Comment . [facility] Comment on above: Protein electrophore sis scan will follow via computer,mail, or superintendent gas distribution delivery. Centromere B Antibody 0.3 AI 0.0-0.9 [facility] Endomysial IgA Antibody Negative Negative [facility] Estimated GFR (MDRD) Amer 94 mL/min >60 [facility] Comment on above: GFR Calc Estimated GFR (MDRD) Non-Af Amer 78 mL/min >60 [facility] Comment on above: Non- GFR Calc Immunoglobulin E 25 IU/mL 6-495 [facility] Miscellaneous Test See comment [facility] Comment on above: TEST RESULT [...] developed and its performance characteristics determined by [facility]. It has not been cleared or approved by the Food and Drug Administration. The FDA has determined that such clearance or approval is not necessary.Atypical pANCA Negative Negative Comments Pattern is not suggestive of Inflammatory Bowel Disease TESTING PERFORMED AT [facility]. ORIGINAL REPORT ON FILE IN LAB CONTAINS ADDITIONAL TEST SITE INFORMATION. [employer] REPA[employer]ER Antibody <0.2 AI 0.0-0.9 [facility] Platelets bldOrdered By: Raúl Brandt on 06-07-2022 Platelets (Bld) [#/Vol] 214 10*3/uL 150-450 [facility] Serum DNA double strand anti body assay (units/volume)Ordered By: Sae Brandt on 06-07-2022 DNA double strand Ab Qn (S) 5 [IU]/mL 0-9 [facility] Comment on above: Negative <5 Equivoca l 5 - 9 Positive >9 Serum Jaci-1 antibody assay (u nits/volume)Ordered By: Sae Brandt on 06-07-2022 Jaci-1 extractable nuclear Ab Qn (S) <0.2 AI 0.0-0.9 [facility] Serum Scl-70 extractable nuc lear antibody assay (units/volume)Ordered By: Sae Brandt on 06-07-2022 SCL-70 extractable nuclear Ab Qn (S) <0.2 AI 0.0-0.9 [facility] Serum Espinosa extractable nucl ear antibody detectionOrdered By: Sae Brandt on 06-07-2022 Espinosa extractable nuclear Ab Ql (S) <0.2 AI 0.0-0.9 [facility] Serum [id number] measu rement by electrophoresisOrdered By: Sae Brandt on 06-07-2022 Alpha 1 globulin Elph [Mass/Vol] 0.3 g/dL 0.0-0.4 [facility] Alpha 1 globulin Elph [Mass/Vol] 0.7 g/dL 0.4-1.0 [facility] Serum classic neutrophil cyt oplasmic antibody assay (units/volume)Ordered By: Sae Brandt on 06-07-2022 Neutrophil cytoplasmic Ab.classic Qn (S) <1:20 titer Neg:<1:20 [facility] Serum globulin measurement ( mass/volume)Ordered By: Sae Brandt on 06-07-2022 Globulin (S) [Mass/Vol] 3.6 g/dL 2.2-3.9 [facility] Serum or plasma C reactive p rotein measurement (mass/volume)Ordered By: Sae Brandt on 06-07-2022 CRP [Mass/Vol] mg/L 0.0-3.0 [facility] Comment on above: C-Reactive Protein ( CRP) provides useful information for thediagnosis, therapy and monitoring of inflammatory processesand associated diseases. For the evaluation of Relative Riskfor Cardiovascular Disease, a High Sensitivity CRP (HSCRP)should be ordered. Serum or plasma IgA measurem ent (mass/volume)Ordered By: Sae Brandt on 06-07-2022 IgA [Mass/Vol] 338 mg/dL 64-422 [facility] Serum or plasma IgG measurem ent (mass/volume)Ordered By: Sae Brandt on 06-07-2022 IgG [Mass/Vol] 1428 mg/dL 586-1602 [facility] Serum or plasma IgM measurem ent (mass/volume)Ordered By: Sae Brandt on 06-07-2022 IgM [Mass/Vol] 92 mg/dL 26-217 [facility] Serum or plasma albumin gianluca urement (mass/volume)Ordered By: Sae Brandt on 06-07-2022 Albumin [Mass/Vol] 3.6 g/dL 2.9-4.4 [facility] Serum or plasma albumin/glob ulin mass ratioOrdered By: Sae Brandt on 06-07-2022 Albumin/Globulin [Mass ratio] 0.9 {ratio} 0.9-2.4 [facility] Serum or plasma beta globuli n measurement by electrophoresis (mass/volume)Ordered By: Sae Brandt on 06-07-2022 Beta globulin Elph [Mass/Vol] 1.0 g/dL 0.7-1.3 [facility] Serum or plasma calcium gianluca urement (mass/volume)Ordered By: Sae Brandt on 06-07-2022 Calcium [Mass/Vol] 9.5 mg/dL 8.5-10.1 [facility] Serum or plasma creatinine m easurement (mass/volume)Ordered By: Sae Brandt on 06-07-2022 Creatinine [Mass/Vol] 0.77 mg/dL 0.55-1.02 [facility] Comment on above: The validity of the calculated GFR & GFRAA in patients over 70 years has not been determined. Clinical correlation is essential. Serum or plasma gamma globul in measurement by electrophoresis (mass/volume)Ordered By: Sae Brandt on 06-07-2022 Gamma globulin Elph [Mass/Vol] 1.6 g/dL 0.4-1.8 [facility] Serum or plasma immunoelectr ophoresis interpretation (nominal result)Ordered By: Sae Brandt on 06-07-2022 Interpretation IEP [Interp] Comment . [facility] Comment on above: No monoclonality det ected. Serum or plasma urea nitroge n measurement (mass/volume)Ordered By: Sae Brandt on 06-07-2022 Urea nitrogen [Mass/Vol] 13 mg/dL 7-18 [facility] Serum perinuclear neutrophil cytoplasmic antibody titer by immunofluorescenceOrdered By: Sae Brandt on 06-07-2022 Neutrophil cytoplasmic Ab.perinuclear IF (S) [Titer] <1:20 titer Neg:<1:20 [facility] Comment on above: The presence of posi [...] only by EIA. Ref. AM J Clin [id number];111:507-513. Serum tissue transglutaminas e IgA antibody assay (units/volume)Ordered By: Sae Brandt on 06-07-2022 tTG IgA Qn (S) <2 U/mL 0-3 [facility] Comment on above: Negative 0 - 3 Weak Positive 4 - 10 Positive >10 Tissue Transglutaminase (tTG) has been identified as the endomysial antigen. Studies have demonstr- ated that endomysial IgA antibodies have over 99% specificity for gluten sensitive enteropathy. Thin prep Papanicolaou smear with manual screeningOrdered By: Sae Brandt on 06-07-2022 Thin prep Papanicolaou smear with manual screening 23 U/L 15-37 [facility] Thin prep Papanicolaou smear with manual screening 8 5-15 [facility] Thin prep Papanicolaou smear with manual screening 1.1 0.7-1.7 [facility] Total protein bloodOrdered B y: Sae Brandt on 06-07-2022 Protein [Mass/Vol] 7.2 g/dL 6.0-8.5 [facility] Absolute lymphocyte countOrd ered By: Dr. Snowden on 03-26-2022 Lymphocytes Auto (Unsp spec) [#/Vol] 1.21 10*3/uL 0.83-4.51 [facility] Basophil percentageOrdered B y: Dr. Snowden on 03-26-2022 Basophils/100 WBC (Bld) 0.5 % 0-1 [facility] Bilirubin [Mass/Vol] 0.40 mg/dL 0.20-1.00 [facility] Comment on above: For patients on eltr ombopag therapy, use of Dimension [place] TBIL is not recommended. Chloride [Moles/Vol] 104 mmol/L 98-107 [facility] Cholesterol [Mass/Vol] 176 mg/dL <200 [facility] Comment on above: <200 mg/dL Desirable 200-240 mg/dL Borderline >240 mg/dL High Risk Eosinophils/100 WBC (Bld) 1.9 % 0-5 [facility] Glucose [Mass/Vol] 88 mg/dL 74-106 [facility] Neutrophils (Bld) [#/Vol] 4.0 10*3/uL 2.0-7.7 [facility] Neutrophils/100 WBC (Bld) 67.6 % 47-70 [facility] Potassium [Moles/Vol] 4.1 mmol/L 3.5-5.1 [facility] Protein [Mass/Vol] 7.0 g/dL 6.4-8.2 [facility] Sodium [Moles/Vol] 140 mmol/L 136-145 [facility] Triglyceride [Mass/Vol] 113 mg/dL <199 [facility] Comment on above: The drugs N-Acetylcy steine and Metamizole may falsely depress this assay.Serum Triglycerides Reference Interval Normal <150 mg/dL Borderline high 150 - 199 mg/dL High 200 - 499 mg/dL Very High > or = 500 mg/dL WBC (Bld) [#/Vol] 5.9 10*3/uL 4.4-11.0 [facility] Blood erythrocytes count (nu mber/volume)Ordered By: Dr. Snowden on 03-26-2022 RBC (Bld) [#/Vol] 4.01 10*6/uL 4.2-5.4 [facility] Blood hemoglobin measurement (mass/volume)Ordered By: Dr. Snowden on 03-26-2022 Hemoglobin (Bld) [Mass/Vol] 12.6 g/dL 12.0-15. 0 [facility] Blood lymphocytes/100 leukoc ytesOrdered By: Dr. Snowden on 03-26-2022 Lymphocytes/100 WBC (Bld) 20.4 % 19-41 [facility] Blood monocytes/100 leukocyt esOrdered By: Dr. Snowden on 03-26-2022 Monocytes/100 WBC (Bld) 9.3 % 0-10 [facility] Blood platelet mean volumeOr dered By: Dr. Snowden on 03-26-2022 Platelet mean volume (Bld) [Entitic vol] 10.1 fL 6.2-12.0 [facility] Determination of erythrocyte mean corpuscular volume (MCV)Ordered By: Dr. Snowden on 03-26-2022 MCV (RBC) [Entitic vol] 99.0 fL 81-99 [facility] [facility] Hematocrit Auto (Bld) [Volum e fraction]Ordered By: Dr. Snowden on 03-26-2022 Hematocrit (Bld) [Volume fraction] 39.7 % 37-47 [facility] - Chemistry and C hemistry - challengeOrdered By: Dr. Snowden on 03-26-2022 ALP [Catalytic activity/Vol] 64 U/L 45-117 [facility] ALT [Catalytic activity/Vol] 23 U/L 13-56 [facility] CO2 [Moles/Vol] 28.0 mmol/L 21.0-32.0 [facility] Globulin (S) [Mass/Vol] 3.6 g/dL 2.2-4.2 [facility] Urea nitrogen/Creatinine [Mass ratio] 18.9 mg/mg 10-20 [facility] - Hematology and Cell countsOrdered By: Dr. Snowden on 03-26-2022 Erythrocyte distribution width (RBC) [Entitic vol] 47.1 fL 35.1-43.9 [facility] Erythrocyte distribution width (RBC) [Ratio] 13.1 % 11.6-14.6 [facility] Immature granulocytes/100 WBC (Bld) 0.300 % 0.0-0.9 [facility] Comment on above: IG% - Immature Granu locytes (promyelocytes, myelocytes and metamyelocytes) > 1% indicates that a LEFT SHIFT is Present. MCH (RBC) [Entitic mass] 31.4 pg 27.0-32.0 [facility] Nucleated RBC/100 WBC (Bld) [Ratio] 0 % 0-5 [facility] MCHC Auto (RBC) [Mass/Vol]Or dered By: Dr. Snowden on 03-26-2022 MCHC (RBC) [Mass/Vol] 31.7 g/dL 32-36 [facility] No Panel InformationOrdered By: Dr. Snowden on 03-26-2022 Estimated GFR (MDRD) Amer 98 mL/min >60 [facility] Comment on above: GFR Calc Estimated GFR (MDRD) Non-Af Amer 81 mL/min >60 [facility] Comment on above: Non- GFR Calc Thyroid Stimulating Hormone (TSH) 0.92 uIU/mL 0.358-3.74 [facility] Vitamin D 25-Hydroxy 78.9 ng/mL [facility] Comment on above: Vitamin D 25(OH) Sta tus Range Deficiency <20 ng/mL (50nmol/L) Insufficiency 20 - 30 ng/mL (50 - 75 nmol/L) Sufficiency 30 - 100 ng/mL (75 - 250 nmol/L) Toxicity >100 ng/mL (>250 nmol/L) Platelets bldOrdered By: Dr. Snowden on 03-26-2022 Platelets (Bld) [#/Vol] 221 10*3/uL 150-450 [facility] Serum or plasma albumin gianluca urement (mass/volume)Ordered By: Dr. Snowden on 03-26-2022 Albumin [Mass/Vol] 3.4 g/dL 3.2-5.0 [facility] Serum or plasma albumin/glob ulin mass ratioOrdered By: Dr. Snowden on 03-26-2022 Albumin/Globulin [Mass ratio] 0.9 {ratio} 0.9-2.4 [facility] Serum or plasma calcium gianluca urement (mass/volume)Ordered By: Dr. Snowden on 03-26-2022 Calcium [Mass/Vol] 8.8 mg/dL 8.5-10.1 [facility] Serum or plasma cholesterol in HDL measurement (mass/volume)Ordered By: Dr. Snowden on 03-26-2022 Cholesterol in HDL [Mass/Vol] 60 mg/dL >40 [facility] Comment on above: The drugs N-Acetylcy steine and Metamizole may falsely depress this assay. Reference Range HDL <40 mg/dL Low HDL Cholesterol HDL >or= 60 mg/dL High HDL Cholesterol Serum or plasma cholesterol in VLDL measurement (mass/volume)Ordered By: Dr. Snowden on 03-26-2022 Cholesterol in VLDL [Mass/Vol] 23 mg/dL 5-40 [facility] Serum or plasma creatinine m easurement (mass/volume)Ordered By: Dr. Snowden on 03-26-2022 Creatinine [Mass/Vol] 0.74 mg/dL 0.55-1.02 [facility] Comment on above: The validity of the calculated GFR & GFRAA in patients over 70 years has not been determined. Clinical correlation is essential. Serum or plasma low density lipoprotein (LDL) cholesterol measurement (mass/volume)Ordered By: Dr. Snowden on 03-26-2022 Cholesterol in LDL [Mass/Vol] 93 mg/dL 0-130 [facility] Serum or plasma urea nitroge n measurement (mass/volume)Ordered By: Dr. Snowden on 03-26-2022 Urea nitrogen [Mass/Vol] 14 mg/dL 7-18 [facility] Thin prep Papanicolaou smear with manual screeningOrdered By: Dr. Snowden on 03-26-2022 Thin prep Papanicolaou smear with manual screening 18 U/L 15-37 [facility] Thin prep Papanicolaou smear with manual screening 8 5-15 [facility] Absolute lymphocyte counton 09-25-2021 Lymphocytes Auto (Unsp spec) [#/Vol] 1.32 10*3/uL 0.83-4.51 [facility] Work Phone: Basophil percentageon 2021 Basophils/100 WBC (Bld) 0.6 % 0-1 [facility] Work Phone: Bilirubin [Mass/Vol] 0.40 mg/dL 0.20-1.00 [facility] Work Phone: Comment on above: For patients on eltr ombopag therapy, use of Dimension [place] TBIL is not recommended. Chloride [Moles/Vol] 106 mmol/L 98-107 [facility] Work Phone: Cholesterol [Mass/Vol] 170 mg/dL <200 [facility] Work Phone: Comment on above: <200 mg/dL Desirable 200-240 mg/dL Borderline >240 mg/dL High Risk Eosinophils/100 WBC (Bld) 2.4 % 0-5 [facility] Work Phone: [phone] Glucose [Mass/Vol] 96 mg/dL 74-106 [facility] Work Phone: [phone] Neutrophils (Bld) [#/Vol] 4.8 10*3/uL 2.0-7.7 [facility] Work Phone: [phone] Neutrophils/100 WBC (Bld) 68.8 % 47-70 [facility] Work Phone: Potassium [Moles/Vol] 3.9 mmol/L 3.5-5.1 [facility] Work Phone: Protein [Mass/Vol] 7.2 g/dL 6.4-8.2 [facility] Work Phone: Sodium [Moles/Vol] 141 mmol/L 136-145 [facility] Work Phone: [phone] Triglyceride [Mass/Vol] 93 mg/dL <199 [facility] Work Phone: [phone] Comment on above: The drugs N-Acetylcy steine and Metamizole may falsely depress this assay.Serum Triglycerides Reference Interval Normal <150 mg/dL Borderline high 150 - 199 mg/dL High 200 - 499 mg/dL Very High > or = 500 mg/dL WBC (Bld) [#/Vol] 7.0 10*3/uL 4.4-11.0 [facility] Work Phone: [phone] Blood erythrocytes count (nu mber/volume)on 09-25-2021 RBC (Bld) [#/Vol] 4.05 10*6/uL 4.2-5.4 [facility] Work Phone: [phone] Blood hemoglobin measurement (mass/volume)on 09-25-2021 Hemoglobin (Bld) [Mass/Vol] 12.8 g/dL 12.0-15. 0 [facility] Work Phone: Blood lymphocytes/100 leukoc yteson 09-25-2021 Lymphocytes/100 WBC (Bld) 18.9 % 19-41 [facility] Work Phone: Blood monocytes/100 leukocyt eson 09-25-2021 Monocytes/100 WBC (Bld) 9.0 % 0-10 [facility] Work Phone: Blood platelet mean volumeon 09-25-2021 Platelet mean volume (Bld) [Entitic vol] 10.1 fL 6.2-12.0 [facility] Work Phone: Determination of erythrocyte mean corpuscular volume (MCV)on 09-25-2021 MCV (RBC) [Entitic vol] 98.3 fL 81-99 [facility] Work Phone: Hematocrit Auto (Bld) [Volum e fraction]on 09-25-2021 Hematocrit (Bld) [Volume fraction] 39.8 % 37-47 [facility] Work Phone: [phone] Laboratory - Chemistry and C hemistry - challengeon 09-25-2021 ALP [Catalytic activity/Vol] 62 U/L 45-117 [facility] Work Phone: ALT [Catalytic activity/Vol] 20 U/L 13-56 [facility] Work Phone: CO2 [Moles/Vol] 29.0 mmol/L 21.0-32.0 [facility] Work Phone: [phone] Globulin (S) [Mass/Vol] 3.7 g/dL 2.2-4.2 [facility] Work Phone: [phone] Urea nitrogen/Creatinine [Mass ratio] 17.0 mg/mg 10-20 [facility] Work Phone: Laboratory - Hematology and Cell countson 09-25-2021 Erythrocyte distribution width (RBC) [Entitic vol] 47.1 fL 35.1-43.9 [facility] Work Phone: [phone] Erythrocyte distribution width (RBC) [Ratio] 13.2 % 11.6-14.6 [facility] Work Phone: [phone] Immature granulocytes/100 WBC (Bld) 0.300 % 0.0-0.9 [facility] Work Phone: [phone] Comment on above: IG% - Immature Granu locytes (promyelocytes, myelocytes and metamyelocytes) > 1% indicates that a LEFT SHIFT is Present. MCH (RBC) [Entitic mass] 31.6 pg 27.0-32.0 [facility] Work Phone: [phone] Nucleated RBC/100 WBC (Bld) [Ratio] 0 % 0-5 [facility] Work Phone: MCHC Auto (RBC) [Mass/Vol]on 09-25-2021 MCHC (RBC) [Mass/Vol] 32.2 g/dL 32-36 [facility] Work Phone: No Panel Informationon 09-25 Estimated GFR (MDRD) Amer 95 mL/min >60 [facility] Work Phone: Comment on above: GFR Calc Estimated GFR (MDRD) Non-Af Amer 78 mL/min >60 [facility] Work Phone: Comment on above: Non- GFR Calc Thyroid Stimulating Hormone (TSH) 0.89 uIU/mL 0.358-3.74 [facility] Work Phone: Vitamin D 25-Hydroxy 76.5 ng/mL [facility] Work Phone: Comment on above: Vitamin D 25(OH) Sta tus Range Deficiency <20 ng/mL (50nmol/L) Insufficiency 20 - 30 ng/mL (50 - 75 nmol/L) Sufficiency 30 - 100 ng/mL (75 - 250 nmol/L) Toxicity >100 ng/mL (>250 nmol/L) Platelets bldon 09-25-2021 Platelets (Bld) [#/Vol] 227 10*3/uL 150-450 [facility] Work Phone: Serum or plasma albumin gianluca urement (mass/volume)on 09-25-2021 Albumin [Mass/Vol] 3.5 g/dL 3.2-5.0 [facility] Work Phone: Serum or plasma albumin/glob ulin mass ratioon 09-25-2021 Albumin/Globulin [Mass ratio] 0.9 {ratio} 0.9-2.4 [facility] Work Phone: Serum or plasma calcium gianluca urement (mass/volume)on 09-25-2021 Calcium [Mass/Vol] 9.2 mg/dL 8.5-10.1 [facility] Work Phone: Serum or plasma cholesterol in HDL measurement (mass/volume)on 09-25-2021 Cholesterol in HDL [Mass/Vol] 60 mg/dL >40 [facility] Work Phone: Comment on above: The drugs N-Acetylcy steine and Metamizole may falsely depress this assay. Reference Range HDL <40 mg/dL Low HDL Cholesterol HDL >or= 60 mg/dL High HDL Cholesterol Serum or plasma cholesterol in VLDL measurement (mass/volume)on 09-25-2021 Cholesterol in VLDL [Mass/Vol] 19 mg/dL 5-40 [facility] Work Phone: Serum or plasma creatinine m easurement (mass/volume)on 09-25-2021 Creatinine [Mass/Vol] 0.76 mg/dL 0.55-1.02 [facility] Work Phone: Comment on above: The validity of the calculated GFR & GFRAA in patients over 70 years has not been determined. Clinical correlation is essential. Serum or plasma low density lipoprotein (LDL) cholesterol measurement (mass/volume)on 09-25-2021 Cholesterol in LDL [Mass/Vol] 91 mg/dL 0-130 [facility] Work Phone: Serum or plasma urea nitroge n measurement (mass/volume)on 09-25-2021 Urea nitrogen [Mass/Vol] 13 mg/dL 7-18 [facility] Work Phone: Thin prep Papanicolaou smear with manual screeningon 09-25-2021 Thin prep Papanicolaou smear with manual screening 15 U/L 15-37 [facility] Work Phone: Thin prep Papanicolaou smear with manual screening 6 5-15 [facility] Work Phone: Lab Report: Basic Metabolic Profile (BMP)on 12-17-2016 Anion gap 6 mmol/L Invalid Interpretation Code 5-15 [facility] Work Phone: [phone] BUN/Creatinine Ratio 14.8 RATIO Invalid Interpretation Code 10-20 [facility] Work Phone: [phone] Calcium 9.2 mg/dL Invalid Interpretation Code 8.5-10.1 [facility] Work Phone: [phone] Chloride 102 mmol/L Invalid Interpretation Code 98-107 [facility] Phone: [phone] CO2 30.0 mmol/L Invalid Interpretation Code 21.0-32.0 [facility] Phone: [phone] Creatinine 0.74 mg/dL Invalid Interpretation Code 0.55-1.02 [facility] Phone: [phone] eGFR (non-black) 82 mL/min/{1.73_m2} Invalid Interpretation Code >60 [employer] Work Phone: [phone] eGFR (non-black) 99 mL/min/{1.73_m2} Invalid Interpretation Code >60 [facility] Phone: [phone] Glucose 90 mg/dL Invalid Interpretation Code 70-110 [facility] Phone: [phone] Potassium 3.9 mmol/L Invalid Interpretation Code 3.5-5.1 [facility] Phone: [phone] Sodium 138 mmol/L Invalid Interpretation Code 136-145 [facility] Phone: [phone] Urea nitrogen 11 mg/dL Invalid Interpretation Code 7-18 [facility] Phone: [phone] Office Visiton 12-17-2016 Documentation of current medications (procedure) Done Invalid Interpretation Code [facility] Phone: [phone] Fall risk assessment Yes Invalid Interpretation Code [facility] Phone: [phone] 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 Left ventricular Ejection fraction 65-70 Invalid Interpretation Code [facility] Phone: [phone] Office Visiton 06-13-2015 Tobacco use CP Never smoker Invalid Interpretation Code [facility] Phone: [phone] External Other: Preferred Me [employer] of [employer] 03-08-2015 Patient's prefered method of contact phone Invalid Interpretation Code [facility] Phone: Office Visit: [facility] 03-08-20 Dietary management education, guidance, and counseling (procedure) yes Invalid Interpretation Code [facility] Phone: [phone] General cardiovascular disease 10Y risk [#] Iola.D'Agostradha 15 % Invalid Interpretation Code [facility] Phone: [phone] Clinical 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 Magnesium 1.6 mg/dL Low [employer] Work Phone: [phone] Office Visiton 08-05-2014 cardiac risk group B Invalid Interpretation Code [employer] Work Phone: [phone] Clinical Lists Update: 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 Cholesterol 171 mg/dL Invalid Interpretation Code [employer] Work Phone: [phone] HDL Cholesterol 46 mg/dL Invalid Interpretation Code [employer] Work Phone: [phone] LDL Cholesterol 109 mg/dL Invalid Interpretation Code [employer] Work Phone: [phone] Triglyceride 78 mg/dL Invalid Interpretation Code [employer] Work Phone: [phone] very low density lipoproteins 16 mg/dL Invalid Interpretation Code [employer] Work Phone: [phone] Clinical Lists Update: 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 05-22-2014 basophils as percent of blood leukocytes, manual count 0.5 % Invalid Interpretation Code [employer] Work Phone: [phone] eosinophils as percent of blood leukocytes, manual count 0.7 % Invalid Interpretation Code [employer] Work Phone: [phone] Erythrocytes (RBC) 4.37 10*6/uL Invalid Interpretation Code [employer] Work Phone: [phone] Hematocrit (HCT) 40.7 % Invalid Interpretation Code [employer] Work Phone: [phone] Hemoglobin (HGB) 13.9 g/dL Invalid Interpretation Code [employer] Work Phone: [phone] Lymphocytes/100 leukocytes 15.7 % Low [employer] Work Phone: [phone] MCH 31.8 pg Invalid Interpretation Code [employer] Work Phone: [phone] MCHC 34.2 g/dL Invalid Interpretation Code [employer] Work Phone: [phone] MCV 93.1 fL Invalid Interpretation Code [employer] Work Phone: [phone] Monocytes/100 leukocytes 6.6 % Invalid Interpretation Code [employer] Work Phone: [phone] neutrophils, band form as percent of blood leukocytes, manual count 76.3 % High [employer] Work Phone: [phone] Platelets 244 10*3/mm3 Invalid Interpretation Code [facility] Work Phone: [phone] RDW-CA 13.0 % Invalid Interpretation Code [facility] Work Phone: [phone] Thyroid stimulating hormone (TSH) 0.88 u[iU]/mL Invalid Interpretation Code [facility] Work Phone: [phone] WBC (Leukocytes) 6.1 10*3/uL Invalid Interpretation Code [facility] Work Phone: [phone] Clinical Lists Update: Prelo popcorn vendor 06-23-2012 Albumin 4.0 g/dL Invalid Interpretation Code [facility] Work Phone: [phone] Albumin/Globulin Ratio 1.0 {ratio} Invalid Interpretation Code [facility] Work Phone: [phone] Alkaline phosphatase (ALP) 95 U/L Inval id Interpretation Code [facility] Work Phone: [phone] Aspartate aminotransferase (AST) 24 U/L Invalid Interpretation Code [facility] Work Phone: [phone] Bilirubin (total) 0.20 mg/dL Invalid Interpretation Code [facility] Work Phone: [phone] Globulin 3.9 g/dL Invalid Interpretation Code [employer] Work Phone: [phone] Protein 7.9 g/dL Invalid Interpretation Code [facility] Work Phone: [phone] Lab Reporton 06-13-2011 Alanine aminotransferase (ALT) 42 U/L Invalid Interpretation Code [facility] Work Phone: [phone] Bilirubin (direct) 0.12 mg/dL Invalid Interpretation Code [facility] Work Phone: [phone] Vital Signs Date Time Vital Sign Value Performing Clinician Facility 11-18-2024 15:25-0400 Body mass index (BMI) [Ratio] 30.31 kg/m2 Elzbieta Hernandez MD Work Phone: [facility] 11-18-2024 15:25-0400 Body temperature 97.59 [degF] Elzbieta Hernandez MD Work Phone: [facility] 11-18-2024 15:25-0400 Body weight 65.77 kg Elzbieta Hernandez MD Work Phone: [facility] 11-18-2024 15:25-0400 Heart rate 92 /min Elzbieta Hernandez MD Work Phone: [facility] 11-18-2024 15:25-0400 Respiratory rate 20 /min Elzbieta Hernandez MD Work Phone: [facility] 11-18-2024 15:25-0400 SaO2% (BldA) [Mass fraction] 97 % Elzbieta Hernandez MD Work Phone: [facility] 11-02-2024 08:27-0400 Body mass index (BMI) [Ratio] 30.3 kg/m2 Dr. Michael Snowden MD Work Phone: [facility] 11-02-2024 08:27-0400 Body weight 65.[address] Michael Snowden MD Work Phone: [facility] 11-02-2024 08:27-0400 Diastolic blood pressure 72 mm[Hg] Dr. Michael Snowden MD Work Phone: [facility] 11-02-2024 08:27-0400 Heart rate 95 /min Dr. Michael Snowden MD Work Phone: [facility] 11-02-2024 08:27-0400 Respiratory rate 18 /min Dr. Michael Snowden MD Work Phone: [facility] 11-02-2024 08:27-0400 SaO2% (BldA) [Mass fraction] 94 % Dr. Michael Snowden MD Work Phone: [facility] 11-02-2024 08:27-0400 Systolic blood pressure 104 mm[Hg] Dr. Michael Snowden MD Work Phone: [facility] 08-13-2024 07:56-0400 Diastolic blood pressure 103 mm[Hg] Seth Chowdary MD Work Phone: [facility] 08-13-2024 07:56-0400 Heart rate 98 /min Seth Chowdary MD Work Phone: [facility] 08-13-2024 07:56-0400 Systolic blood pressure 148 mm[Hg] Seth Chowdary MD Work Phone: [facility] 08-13-2024 07:52-0400 Body height 147.3 cm Seth Chowdary MD Work Phone: [facility] 08-13-2024 07:52-0400 Body mass index (BMI) [Ratio] 31.33 kg/m2 Seth Chowdary MD Work Phone: [facility] 08-13-2024 07:52-0400 Body weight 68 kg Seth Chowdary MD Work Phone: [facility] 08-13-2024 07:52-0400 Respiratory rate 18 /min Seth Chowdary MD Work Phone: [facility] 07-21-2024 12:56-0400 Body height 147.3 cm Jovanni Matthew MD Work Phone: [facility] 07-21-2024 12:56-0400 Body mass index (BMI) [Ratio] 31.35 kg/m2 Jovanni Matthew MD Work Phone: [facility] 07-21-2024 12:56-0400 Body weight 68.04 kg Jovanni Matthew MD Work Phone: [facility] 07-21-2024 12:56-0400 Diastolic blood pressure 75 mm[Hg] Jovanni Matthew MD Work Phone: [facility] 07-21-2024 12:56-0400 Heart rate 98 /min Jovanni Matthew MD Work Phone: [facility] 07-21-2024 12:56-0400 SaO2% (BldA) [Mass fraction] 96 % Jovanni Matthew MD Work Phone: [facility] 07-21-2024 12:56-0400 Systolic blood pressure 109 mm[Hg] Jovanni Matthew MD Work Phone: [facility] 05-21-2024 08:45-0500 Heart rate 71 /min Dr. Michael Snowden MD Work Phone: [facility] 05-21-2024 08:40-0500 Body temperature 98 [degF] Dr. Michael Snowden MD Work Phone: [facility] 05-21-2024 08:40-0500 Diastolic blood pressure 87 mm[Hg] Dr. Michael Snowden MD Work Phone: 6(111)150-800739 [place] [address] 05-21-2024 08:40-0500 Respiratory rate 17 /min Dr. Michael Snowden MD Work Phone: [facility] 05-21-2024 08:40-0500 SaO2% (BldA) [Mass fraction] 95 % Dr. Michael Snowden MD Work Phone: 8(073)812-094439 [place] [address] 05-21-2024 08:40-0500 Systolic blood pressure 144 mm[Hg] Dr. Michael Snowden MD Work Phone: 4(998)956-004939 [place] [address] 05-18-2024 11:00-0500 Body mass index (BMI) [Ratio] 32.5 kg/m2 Dr. Michael Snowden MD Work Phone: [facility] 05-18-2024 11:00-0500 Body weight 70.[address] Michael Snowden MD Work Phone: 9(459)358-852139 [place] [address] 05-15-2024 05:41-0500 Inhaled oxygen flow rate 97 L/min Dr. Michael Snowden MD Work Phone: [facility] 05-12-2024 13:31-0500 Body height 147.[address] Michael Snowden MD Work Phone: [facility] 04-16-2024 10:20-0500 Heart rate 70 /min Dr. Michael Snowden MD Work Phone: 3(752)832-826139 [place] [address] 04-16-2024 10:10-0500 Body temperature 98.3 [degF] Dr. Michael Snowden MD Work Phone: 4(338)228-404339 [place] [address] 04-16-2024 10:10-0500 Diastolic blood pressure 71 mm[Hg] Dr. Michael Snowden MD Work Phone: 3(346)896-812245 [place] [address] 04-16-2024 10:10-0500 Respiratory rate 18 /min Dr. Michael Snowden MD Work Phone: 5(308)160-460445 [place] [address] 04-16-2024 10:10-0500 SaO2% (BldA) [Mass fraction] 95 % Dr. Michael Snowden MD Work Phone: 6(357)995-670445 [place] [address] 04-16-2024 10:10-0500 Systolic blood pressure 109 mm[Hg] Dr. Michael Snowden MD Work Phone: 0(684)319-188145 [place] [address] 04-15-2024 15:36-0500 Body weight 70.[address] Michael Snowden MD Work Phone: 5(548)416-254245 [place] [address] 04-11-2024 14:41-0500 Body mass index (BMI) [Ratio] 32.5 kg/m2 Dr. Michael Snowden MD Work Phone: 2(644)207-141545 [place] [address] 03-31-2024 00:00-0500 Body temperature 98 [degF] Dr. Michael Snowden MD Work Phone: 2(282)438-482245 [place] [address] 03-31-2024 00:00-0500 Diastolic blood pressure 78 mm[Hg] Dr. Michael Snowden MD Work Phone: 4(931)289-180745 [place] [address] 03-31-2024 00:00-0500 Heart rate 84 /min Dr. Michael Snowden MD Work Phone: 9(455)673-441545 [place] [address] 03-31-2024 00:00-0500 Respiratory rate 16 /min Dr. Michael Snowden MD Work Phone: 3(458)904-729145 [place] [address] 03-31-2024 00:00-0500 SaO2% (BldA) [Mass fraction] 99 % Dr. Michael Snowden MD Work Phone: 2(910)941-185245 [place] [address] 03-31-2024 00:00-0500 Systolic blood pressure 145 mm[Hg] Dr. Michael Snowden MD Work Phone: 0(270)251-441739 [place] [address] 05-09-2023 13:06-0500 Body height 149.[address] Michael Snowden Work Phone: 7(682)780-162439 [place] [address] 05-09-2023 13:06-0500 Body mass index (BMI) [Ratio] 30.9 kg/m2 Dr. Michael Snowden Work Phone: 5(423)973-017256 [address] 05-09-2023 13:06-0500 Body weight 69.[address] Michael Snowden Work Phone: 0(336)192-378739 [place] [address] 05-09-2023 13:06-0500 Diastolic blood pressure 86 mm[Hg] Dr. Michael Snowden Work Phone: 3(115)455-537545 [place] [address] 05-09-2023 13:06-0500 Heart rate 59 /min Dr. Michael Snowden Work Phone: 0(991)811-384445 [place] [address] 05-09-2023 13:06-0500 Respiratory rate 18 /min Dr. Michael Snowden Work Phone: 6(190)564-144845 [place] [address] 05-09-2023 13:06-0500 SaO2% (BldA) [Mass fraction] 95 % Dr. Michael Snowden Work Phone: 0(626)345-547745 [place] [address] 05-09-2023 13:06-0500 Systolic blood pressure 154 mm[Hg] Dr. Michael Snowden Work Phone: 9(062)610-724545 [place] [address] 01-06-2023 14:34-0400 Body height 149.[address] Michael Snowden Work Phone: 5(135)830-272845 [place] [address] 01-06-2023 14:34-0400 Body mass index (BMI) [Ratio] 29.9 kg/m2 Dr. Michael Snowden Work Phone: 4(069)541-131545 [place] [address] 01-06-2023 14:34-0400 Body weight 67.[address] Michael Snowden Work Phone: 6(673)792-805845 [place] [address] 01-06-2023 14:34-0400 Diastolic blood pressure 80 mm[Hg] Dr. Michael Snowden Work Phone: 9(825)831-958745 [place] [address] 01-06-2023 14:34-0400 Heart rate 54 /min Dr. Michael Snowden Work Phone: [facility] 01-06-2023 14:34-0400 Respiratory rate 18 /min Dr. Michael Snowden Work Phone: [facility] 01-06-2023 14:34-0400 SaO2% (BldA) [Mass fraction] 95 % Dr. Michael Snowden Work Phone: [facility] 01-06-2023 14:34-0400 Systolic blood pressure 171 mm[Hg] Dr. Michael Snowden Work Phone: [facility] 01-04-2022 08:47-0400 Body height 149.[address] Michael Snowden Work Phone: [facility] Work Phone: 01-04-2022 08:47-0400 Body mass index (BMI) [Ratio] 31.3 kg/m2 Dr. Michael Snowden Work Phone: [facility] Work Phone: 01-04-2022 08:47-0400 Body weight 70.[address] Michael Snowden Work Phone: [facility] Work Phone: 01-04-2022 08:47-0400 Heart rate 52 /min Dr. Michael Snowden Work Phone: [facility] Work Phone: 01-04-2022 08:47-0400 Respiratory rate 16 /min Dr. Michael Snowden Work Phone: [facility] Work Phone: 01-04-2022 08:47-0400 SaO2% (BldA) [Mass fraction] 98 % Dr. Michael Snowden Work Phone: [facility] Work Phone: 12-17-2016 13:13-0400 BMI (Body Mass Index) 34.13 kg/m2 [facility] Work Phone: 12-17-2016 13:130400 BP Diastolic 80 mm[Hg] [facility] Work Phone: 12-17-2016 13:13-0400 BP Systolic 170 mm[Hg] [facility] Work Phone: 12-17-2016 13:130400 Height 149.86 cm [facility] Work Phone: 12-17-2016 13:130400 Pulse (Heart Rate) 56 /min [facility] Work Phone: 12-17-2016 13:130400 Respiratory Rate 20 /min [facility] Work Phone: 12-17-2016 13:13-0400 Weight 76.66 kg [facility] Work Phone: 06-13-2015 15:00-0400 BSA (Body Surface Area) 1.7 m[address] [facility] Work Phone: 08-05-2014 13:18-0400 BP Diastolic 80 mm[Hg] [facility] Work Phone: 08-05-2014 13:18-0400 BP Systolic 114 mm[Hg] [facility] Work Phone: 08-05-2014 13:18-0400 Pulse (Heart Rate) 67 /min [facility] Work Phone: 03-19-2006 [id number] Body height 0 cm Day Pacheco RN [facility] Work Phone: 03-19-2006 10:28050 Body temperature 98.4 [degF] Day Pacheco RN [...] Date Encounter Type Care Provider Facility Start: 11-23-2024 End: 11-23-2024 Telephone encounter Elzbieta Hernandez MD Work Phone: Endocrinology Comment on above: Appointment Start: 11-22-2024 ambulatory Nikia Henderson [facility] cility:[facility] Start: 11-19-2024 End: 11-19-2024 Telephone encounter Elzbieta Hernandez MD Work Phone: Endocrinology Comment on above: Prior Authorization (Prolia) Start: 11-18-2024 End: 11-18-2024 ambulatory ELZBIETA HERNANDEZ Facility:[facility] Start: 11-18-2024 End: 11-18-2024 Patient encounter procedure Elzbieta Hernandez MD Work Phone: Endocrinology Comment on above: History of vertebral compression fracture (Primary Dx); Age-related osteoporosis with current pathological fracture, initial encounter Start: 11-02-2024 End: 11-02-[address] Michael Snowden MD Work Phone: [facility] Start: 11-02-2024 End: 11-02-2024 Mari Medina NP- -[facility] Work Phone: Start: 10-14-2024 ambulatory Nikia JAVIER Fa cility:[facility] Start: 10-14-2024 Nikia WOLF L - [place] Start: 10-13-2024 End: 10-13-[address] Michael Snowden MD Work Phone: [facility] Start: 10-13-2024 End: 10-13-2024 Audra MANUEL [facility] Work Phone: Start: 09-28-2024 End: 09-28-[address] Michael Snowden MD Work Phone: [facility] Start: 09-28-2024 End: 09-28-2024 [facility] [place] Start: 09-21-2024 ambulatory Nikia Henderson OLS Fa cility:[facility] Start: 09-21-2024 Nikia WOLF L - [place] Start: 09-14-2024 ambulatory Nikia Henderson OLS Fa cility:[facility] Start: 09-14-2024 Nikia WOLF L - [place] Start: 09-07-2024 End: 09-07-2024 Telephone encounter Ajay Grant MD Work Phone: [facility] Start: 09-07-2024 ambulatory Nikia Henderson OLS Fa cility:[facility] Start: 09-07-2024 Nikia WOLF L - [place] Start: 08-31-2024 ambulatory Audra JAVIER Fac ility:[facility] Start: 08-31-2024 Audra MANUEL HL - [place] Start: 08-25-2024 End: 08-25-2024 ambulatory Ajay Grant MD Work Phone: Endocrinology Comment on above: Medication denial Start: 08-25-2024 End: 08-25-2024 E-mail encounter from caregiver Ajay Grant MD Work Phone: Endocrinology Start: 08-24-2024 ambulatory Nikia Cabral cility:[facility] Start: 08-24-2024 Nikia Bacon Beatris - [place] Start: 08-22-2024 End: 08-22-2024 Telephone encounter Ajay Grant MD Work Phone: [facility] [place] Comment on above: Medication Preauthor ization (Evenity 210mg- Denied) Start: 08-17-2024 End: 08-17-[address] Michael Snowden MD Work Phone: [facility] Work Phone: Start: 08-17-2024 End: 08-17-2024 Nikia BaconWHBeatris Cabezas Start: 08-16-2024 End: 08-17-2024 ambulatory Ajay Grant MD Work Phone: Endocrinology Comment on above: Medication update Start: 08-16-2024 End: 08-16-2024 E-mail encounter from caregiver Ajay Grant MD Work Phone: Endocrinology Start: 08-13-2024 End: 08-13-2024 Patient encounter procedure Seth Chowdary MD Work Phone: [facility] [place] Comment on above: Acquired spondylolis thesis (Primary Dx); Cervical spondylosis without myelopathy; Neural foraminal stenosis of lumbar spine; Closed compression fracture of body of L1 vertebra (HCC) Start: 08-13-2024 End: 08-13-2024 ambulatory SETH CHOWDARY Facility:[facility] Start: 08-10-2024 End: 08-10-[address] Michael Snowden MD Work Phone: [facility] Work Phone: Start: 08-10-2024 End: 08-10-2024 Nikia Cabezas Start: 08-10-2024 End: 08-10-2024 ambulatory Nikia JAVIER Facility:[facility] Start: 08-03-2024 End: 08-03-[address] Michael Snowden MD Work Phone: [facility] Work Phone: Start: 08-03-2024 End: 08-03-2024 Audra Cabeazs Start: 08-03-2024 End: 08-03-2024 ambulatory Audra JAVIER Facility:[facility] Start: 07-27-2024 End: 07-27-2024 Audra Cabezas Start: 07-27-2024 End: 07-27-2024 ambulatory Audra JAVIER Facility:[facility] Start: 07-21-2024 End: 07-21-2024 ambulatory MILLIE PETTY Facility:[facility] Start: 07-21-2024 End: 07-21-2024 ambulatory AJAY GRANT Facility:[facility] Start: 07-21-2024 End: 07-21-2024 Patient encounter procedure Jovanni Matthew MD Work Phone: Rehab Medicine Comment on above: Osteopenia, unspecif ied location (Primary Dx); History of vertebral compression fracture; Spondylolisthesis, grade 3 Start: 07-21-2024 End: 07-21-2024 ambulatory JOVANNI MATTHEW Facility:[facility] Start: 07-20-2024 End: 07-20-[address] Michael Snowden MD Work Phone: [facility] Work Phone: Start: 07-20-2024 End: 07-20-2024 Nikia Cabezas Start: 07-20-2024 End: 07-20-2024 ambulatory Nikia JAVIER Facility:[facility] Start: 07-13-2024 End: 07-13-[address] Michael Snowden MD Work Phone: [facility] Work Phone: Start: 07-13-2024 End: 07-13-2024 Nikia BaconWHL - [place] Start: 07-13-2024 End: 07-13-2024 ambulatory Nikia Jainjanicevioletta OLS Facility:[facility] Start: 07-06-2024 Registered Referred Nikia BaconWHL - [place] Start: 07-06-2024 End: 07-06-2024 Nikia BaconWHL - [place] Start: 07-06-2024 End: 07-06-2024 ambulatory Ceciliaguanakofedeheladio Beatriz OLS Facility:[facility] Start: 06-29-2024 Registered Referred Audra Drake MUTUEL TELLER-C -[facility] - [place] Start: 06-29-2024 End: 06-29-2024 Audra Drake MUTUEL TELLER-C -[facility] - [place] Start: 06-29-2024 End: 06-29-2024 ambulatory Audra JAVIER Facility:[facility] Start: 06-23-2024 End: 06-23-2024 ambulatory Audra Drake Facility:[facility] Start: 06-23-2024 End: 06-23-2024 Audra Drake MUTUEL TELLER-C -[facility] Work Phone: Start: 06-22-2024 End: 06-22-[address] Michael Snowden MD Work Phone: [facility] Work Phone: Start: 06-22-2024 Registered Referred Audra Drake MUTUEL TELLER-C -[facility] - [place] Start: 06-22-2024 End: 06-22-2024 Audra Drake MUTUEL TELLER-C -[facility] - [place] Start: 06-22-2024 End: 06-22-2024 ambulatory Audra JAVIER Facility:[facility] Start: 06-15-2024 End: 06-15-[address] Michael Snowden MD Work Phone: [facility] Work Phone: Start: 06-15-2024 End: 06-15-2024 Departed Referred Nikia Cabezas Start: 06-15-2024 Registered Referred Nikia Cabezas Start: 06-15-2024 End: 06-15-2024 Nikia Cabezas Start: 06-15-2024 End: 06-15-2024 ambulatory Eflaura Henderson OLS Facility:[facility] Start: 06-08-2024 End: 06-08-2024 Departed Referred Nikia Cabezas Start: 06-08-2024 Registered Referred Nikia Cabezas Start: 06-08-2024 End: 06-08-2024 Nikia Cabezas Start: 06-08-2024 End: 06-08-2024 ambulatory Eflaura Henderson OLS Facility:[facility] Start: 06-01-2024 End: 06-01-[address] Michael Snowden MD Work Phone: [facility] Work Phone: Start: 06-01-2024 End: 06-01-2024 Departed Referred Nikia Cabezas Start: 06-01-2024 End: 06-01-2024 Nikia Cabezas Start: 06-01-2024 End: 06-01-2024 ambulatory Efewterra Henderson OLS Facility:[facility] Start: 05-25-2024 End: 05-25-2024 ambulatory Efewongbe Roberte Facility:[facility] Start: 05-25-2024 End: 05-25-[address] Nikia Henderson MD -[facility] Work Phone: Start: 05-25-2024 End: 05-25-2024 Dr. Nikia Henderson MD -[facility] Work Phone: Start: 05-21-2024 End: 05-21-2024 ambulatory Audra Drake Facility:[facility] Start: 05-21-2024 End: 05-21-2024 Patient encounter procedure Audra Drake MUTUEL TELLER-C -[facility] Work Phone: Start: 05-21-2024 End: 05-21-2024 Audra Drake MUTUEL TELLER- -[facility] Work Phone: Start: 04-16-2024 End: 05-21-2024 Dr. Michael Snowden MD -[facility] Start: 04-16-2024 End: 05-21-2024 Evaluation and management [...] Inpatient Physicians Work Phone: Start: 04-14-2024 ambulatory [facility] Start: 04-14-2024 End: 04-16-2024 Evaluation and management of inpatient Dr. Gabo Hernandez MD -[facility] Surgical 3 Work Phone: Start: 04-14-2024 End: 04-16-2024 Dr. Gabo Hernandez MD -[facility] 3 Work Phone: Start: 04-14-2024 Non-patient / Non-visit Dr. Minerva Hernandez MD -[place] [facility] Work Phone: Start: 04-14-2024 Dr. Gabo Hernandez MD [facility] Work Phone: Start: 04-14-2024 End: 04-14-2024 ambulatory [facility] Facility:[facility] Start: 04-14-2024 End: 04-14-2024 Non-patient / Non-visit Dr. Indu Pacheco MD [facility] Work Phone: Start: 04-14-2024 End: 04-14-2024 Dr. Indu Pacheco MD [facility] Work Phone: Start: 04-13-2024 Non-patient / Non-visit Dr. Minerva Hernandez MD -[place] [facility] Work Phone: Start: 04-13-2024 Dr. Gabo Hernandez MD [facility] Work Phone: Start: 04-12-2024 Non-patient / Non-visit Dr. Lesli ramirez MD [facility] Work Phone: Start: 04-12[facility] Work [facility]: Start: 04-11-2024 ambulatory [facility] Facility:[facility] Start: 04-11-2024 Non-patient / Non-visit Dr. Lesli ramirez MD [facility] Work Phone: Start: 04-11-2024 [facility] Work Phone: Start: 03-30-2024 End: 03-31-2024 Dr. Floridalma Bingham DO -Emergency Departme nt Work Phone: Start: 03-30-2024 End: 03-31-2024 Emergency department patient visit Dr. Floridalma Bingham DO -Emergency Department Work Phone: Start: 03-25-2024 End: 03-25-2024 ambulatory [facility] Facility:[facility] Start: 03-25-2024 End: 03-25-[address] Michael Snowden MD -Physical Therapy Work Phone: Start: 03-25-2024 End: 03-25-2024 Dr. Michael Snowden MD -Physical Therapy Work Phone: Start: 02-25-2024 End: 02-25-2024 Emergency department patient visit Michael Paulo Snowden Facility:[facility] Start: 02-23-2024 End: 02-23-2024 ambulatory Michael Paulo Sp Facility:[facility] Start: 01-08-2024 End: 01-08-2024 ambulatory Michael [facility] Facility:[facility] Start: 12-15-2023 End: 12-15-2023 ambulatory [facility] Facility:[facility] Start: 06-20-[address] Michael guillen Work Phone: [facility]-Physical Therapy Work Phone: Start: 06-19-2023 Non-patient / Non-visit Dr. Augusto Snowden Work Phone: [facility] Start: 06-19-2023 End: 06-19-[address] Michael Snowden Work Phone: [facility] Work Phone: Start: 06-19-2023 End: 06-19-[address] Michael Snowden Work Phone: [facility]-Cardiovascular Services Work Phone: Start: 05-30-[address] Michael guillen Work Phone: [facility]-Physical Therapy Work Phone: Start: 05-28-2023 End: 05-28-[address] Michael Snowden Work Phone: [facility] Work Phone: Start: 05-28-2023 End: 05-28-[address] [facility] Start: 05-09-2023 End: 05-09-[address] Michael Snowden Work Phone: [facility] Work Phone: Start: 05-09-2023 End: 05-09-[address] Michael Snowden Work Phone: [facility] Work Phone: Start: 04-28-2023 End: 04-28-[address] Michael Snowden Work Phone: [facility] Work Phone: Start: 04-28-2023 End: 04-28-[address] Michael Snowden Work Phone: [facility]-Physical Therapy Work Phone: Start: 02-24-2023 End: 02-24-[address] Michael Snowden Work Phone: [facility] Work Phone: Start: 01-06-2023 End: 01-06-[address] Michael Snowden Work Phone: [facility] Work Phone: Start: 11-28-[address] Michael guillen Work Phone: [facility]-Physical Therapy Work Phone: Start: 11-27-2022 End: 11-27-[address] Michael Snowden Work Phone: [facility] Work Phone: Start: 11-27-2022 End: 11-27-[address] Michael Snowden [facility] Start: 11-05-2022 End: 11-05-[address] Michael Snowden Work Phone: [facility] Work Phone: Start: 11-05-2022 End: 11-05-[address] Michael Snowden Work Phone: [facility]-Physical Therapy Work Phone: Start: 09-25-2022 End: 09-25-[address] Michael Snowden Work Phone: [facility] Work Phone: Start: 08-08-[address] Michael guillen Work Phone: [facility]-Physical Therapy Start: 08-05-2022 End: 08-05-[address] Michael Snowden Work Phone: [facility] Work Phone: Start: 08-05-2022 End: 08-05-[address] Michael Snowden Work Phone: [facility]-Laboratory, Specimen Start: 07-16-[address] Michael guillen Work Phone: [facility]-Physical Therapy Start: 07-16-2022 End: 07-16-[address] Michael Snowden Work Phone: [facility] Work Phone: Start: 07-16-2022 End: 07-16-[address] Michael Snowden Work Phone: [facility]-Ultrasound, [facility] Start: 06-10-[address] Michael guillen Work Phone: [facility]-Physical Therapy Start: 06-07-2022 End: 06-07-[address] Michael Snowden Work Phone: [facility] Work Phone: Start: 06-07-2022 End: 06-07-[address] Michael Snowden Work Phone: [facility] Start: 03-26-2022 End: 03-26-[address] Michael Snowden Work Phone: [facility] Work Phone: Start: 03-26-2022 End: 03-26-[address] Michael Snowden [facility] Start: 02-15-[address] Michael guillen [facility] Start: 01-07-[address] Michael guillen [facility] Start: 01-04-2022 End: 01-04-[address] Michael Snowden Work Phone: [facility] Start: 12-24-2021 End: 12-24-[address] Michael Snowden Work Phone: [facility] Work Phone: Start: 12-24-2021 End: 12-24-[address] Michael Snowden [facility] Start: 09-25-2021 End: 09-25-2021 [facility] Start: 09-24-2021 [facility] Start: 03-19-2006 End: 03-19-2006 Patient encounter procedure Noreen Fast DO Work Phone: [facility] Start: 02-26-2006 End: 02-27-2006 Patient encounter procedure Noreen Fast DO Work Phone: [facility] Start: 02-26-2006 End: 02-26-2006 Historical Summary Noreen Fast DO Work Phone: [facility] Procedures Date Procedure Procedure Detail Performing Clinician Start: 11-02-2024 Blood count smear rscp w/mnl difrntl wbc count Dr. Michael Snowden MD Work Phone: Start: 11-02-2024 Mean corpuscular hem oglobin concentration determination Dr. Michael Snowden MD Work Phone: Start: 11-02-2024 Nucleated red blood cell count procedure Dr. Michael Snowden MD Work Phone: Start: 11-02-2024 Platelet mean volume determination Dr. Michael Snowden MD Work Phone: Start: 11-02-2024 Total cholesterol:HD L ratio measurement Dr. Michael Snowden MD Work Phone: Start: 11-02-2024 Vitamin D, 25-hydrox y measurement Dr. Michael Snowden MD Work Phone: Start: 10-14-2024 Blood count smear mc rscp w/mnl difrntl wbc count Dr. Michael Snowden MD Work Phone: Start: 10-14-2024 Mean corpuscular hem oglobin concentration determination Dr. Michael Snowden MD Work Phone: Start: 10-14-2024 Nucleated red blood cell count procedure Dr. Michael Snowden MD Work Phone: Start: 10-14-2024 Platelet mean volume determination Dr. Michael Snowden MD Work Phone: Start: 09-28-2024 Blood count smear mc rscp w/mnl difrntl wbc count Dr. Michael Snowden MD Work Phone: Start: 09-28-2024 Mean corpuscular hem oglobin concentration determination Dr. Michael Snowden MD Work Phone: Start: 09-28-2024 Nucleated red blood cell count procedure Dr. Michael Snowden MD Work Phone: Start: 09-28-2024 Platelet mean volume determination Dr. Michael Snowden MD Work Phone: Start: 09-21-2024 Blood count smear mc rscp w/mnl difrntl wbc count Dr. Michael Snowden MD Work Phone: Start: 09-21-2024 Mean corpuscular hem oglobin concentration determination Dr. Michael Snowden MD Work Phone: Start: 09-21-2024 Nucleated red blood cell count procedure Dr. Michael Snowden MD Work Phone: Start: 09-21-2024 Platelet mean volume determination Dr. Michael Snowden MD Work Phone: Start: 09-14-2024 Blood count smear mc rscp w/mnl difrntl wbc count Dr. Michael Snowden MD Work Phone: Start: 09-14-2024 Mean corpuscular hem oglobin concentration determination Dr. Michael Snowden MD Work Phone: Start: 09-14-2024 Nucleated red blood cell count procedure Dr. Michael Snowden MD Work Phone: Start: 09-14-2024 Platelet mean volume determination Dr. Michael Snowden MD Work Phone: Start: 09-07-2024 Blood count smear mc rscp w/mnl difrntl wbc count Dr. Michael Snowden MD Work Phone: Start: 09-07-2024 Mean corpuscular hem oglobin concentration determination Dr. Michael Snowden MD Work Phone: Start: 09-07-2024 Nucleated red blood cell count procedure Dr. Michael Snowden MD Work Phone: Start: 09-07-2024 Platelet mean volume determination Dr. Michael Snowden MD Work Phone: Start: 08-31-2024 Blood count smear mc rscp w/mnl difrntl wbc count Dr. Michael Snowden MD Work Phone: Start: 08-31-2024 Mean corpuscular hem oglobin concentration determination Dr. Mcihael Snowden MD Work Phone: Start: 08-31-2024 Nucleated [...] Mean corpuscular hem oglobin concentration determination Dr. Mcihael Snowden MD Work Phone: Start: 08-03-2024 Nucleated [...] Local anesthetic lum bar epidural block Dr. iMchael Snowden MD Work Phone: Start: 04-14-2024 Fluoroscopic [...] Bret Daniels MD Start: 06-11-2016 End: 06-11-2016 [employer] Ashley Ernst PA-C Work Phone: Start: 06-11-2016 End: 06-11-2016 Follow Up Appt 6 months Ashley waterman PA-C Work Phone: Start: 06-11-2016 End: 06-11-2016 Follow Up BP Check Ashley Ernst PA-C Work Phone: Start: 06-13-2015 End: 06-06-2016 Follow Up Appt 1 year Bret S Frances, MD Start: 06-13-2015 End: 06-06-2016 KODAK Daniels [...] months Cole Salazar Start: 08-13-2012 End: 02-01-2013 MM Bret Daniels MD Start: 02-04-2012 End: 02-04-2012 Follow Up Appt 6 months Cole Salazar Start: 03-31-1950 H/O: surgery Tonsillectomy Noreen Fas t DO Work Phone: H/O: surgery Tonsillectomy Noreen A Fast D O Work Phone: Plan of Treatment Date Care Activity Detail Author Start: 02-24-2034 Urine microalbumin profile DTaP,Tdap,Td Vaccine (3 - Td or Tdap) [facility] Start: 07-22-2027 Diabetes Screening Diabetes Screenin g [facility] Start: 07-21-2025 BP Controlled (<130/80) BP Con trolled (<130/80) [facility] Start: 02-21-2025 End: 02-21-2025 Patient encounter procedure 02/21/2025 1:40 PM EST Office Visit Endocrinology [address] [place] [address] Elzbieta Hernandez MD [address] [place] [address] 3 mth follow up Endocrinology Comment on above: 3 mth follow up Start: 11-29-2024 Influenza vaccination [facility] Start: 11-18-2024 End: 02-17-2025 ALK PHOS BONE SPEC ALK PHOS BONE SPEC Lab Routine History of vertebral compression fracture Age-related osteoporosis with current pathological fracture, initial encounter Expected: 11/18/2024, Expires: 02/17/2025 [facility] Comment on above: Expected: 11/18/2024 , Expires: 02/17/2025 Start: 11-18-2024 End: 02-17-2025 Collagen crosslinked C-telopeptide [Mass/volume] in Serum or Plasma C TELOPEPTIDE, BETA Lab Routine History of vertebral compression fracture Age-related osteoporosis with current pathological fracture, initial encounter Expected: 11/18/2024, Expires: 02/17/2025 [facility] Work Phone: Comment on above: Expected: 11/18/2024 , Expires: 02/17/2025 Start: 11-02-2024 Evaluation of diagno stic study results [facility] Start: 11-02-2024 Hepatic function panel [facility] Start: 11-02-2024 Vitamin B12 measurement [facility] Start: 11-02-2024 Vitamin D, 25-hydrox y measurement [facility] Start: 10-20-2024 End: 10-20-2024 Patient encounter procedure 10/20/2024 12:40 PM EDT Office Visit Endocrinology [address] [place] [address] Kimmie Lindsey MD [address] [place], [place] [id number] 3 month follow up Endocrinology Comment on above: 3 month follow up Start: 05-21-2024 Patient discharge [facility] Start: 05-20-2024 Development of care plan [facility] Start: 05-17-2024 Consultation for pain [facility] Start: 05-13-2024 Developing a treatme nt plan [facility] Start: 05-13-2024 Development of care plan [facility] Start: 05-07-2024 [facility] Start: 04-17-2024 Developing a treatme nt plan [facility] Start: 04-17-2024 Development of care plan [facility] Start: 04-16-2024 Admission procedure [facility] Start: 04-16-2024 Introduction of urin mee catheter [facility] Start: 04-16-2024 Measuring intake and output [facility] Start: 04-16-2024 Patient referral to dietitian [facility] Start: 04-16-2024 Referral to occupati onal therapist [facility] Start: 04-16-2024 Referral to service [facility] Start: 04-16-2024 Vital signs measurements [facility] Start: 04-16-2024 [facility] Start: 04-16-2024 Following clinical pathway protocol [facility] Start: 04-16-2024 Patient discharge [facility] Start: 04-16-2024 [facility] Start: 04-14-2024 Admission procedure [facility] Start: 04-11-2024 Application of intermittent pneumatic compression device [facility] Start: 04-11-2024 Following clinical pathway protocol [facility] Start: 04-11-2024 Assessment of risk o f venous thromboembolism [facility] Start: 04-11-2024 Consultation for pain [facility] Start: 04-11-2024 Inhalation therapy procedure [facility] Start: 04-11-2024 Insertion of cathete r into peripheral vein [facility] Start: 04-11-2024 Providing care accor ding to standard [facility] Start: 04-11-2024 Provision of activit y privileges [facility] Start: 04-11-2024 Referral to occupati onal therapist [facility] Start: 04-11-2024 Referral to service [facility] Start: 04-11-2024 [facility] Start: 04-11-2024 Admission procedure [facility] Start: 03-31-2024 Advance Directive Discussion Advance Directive Discussion [facility] Start: 03-31-2024 Medicare Advantage Annual Wellness Visit Medicare Advantage Annual Wellness Visit [facility] Start: 03-31-2024 [facility] Start: 11-30-2023 Covid-19 Vaccine ( season) Covid-19 Vaccine ( season) [facility] Start: 11-30-2023 Influenza vaccination Influenza Vacc ine (#1) [facility] Start: 08-05-2022 Protein measurement [facility] Start: 2020 RSV Vaccine (1 - 1-d ose 75+ series) RSV Vaccine (1 - 1-dose 75+ series) [facility] Start: 06-16-2017 End: 06-16-2017 Appointment Appointment [facility] Work Phone: Start: 12-17-2016 End: 12-17-2016 *BMP *BMP [facility] Work Phone: Start: 12-17-2016 End: 12-17-2016 Follow Up Appt 6 months Follow Up Appt 6 months [facility] Work Phone: Start: 12-17-2016 End: 12-17-2016 JHR JHR [facility] Work Phone: Start: 12-17-2016 End: 12-17-2016 Remote 30 day ecg rev/report 30 Day Holter Monitor [facility] Work Phone: Start: 06-11-2016 End: 06-11-2016 PORTFOLIO MANAGEMENT MARKETING [employer] [facility] Work Phone: Start: 06-11-2016 End: 06-11-2016 Follow Up Appt 6 months Follow Up Appt 6 months [facility] Work Phone: Start: 06-11-2016 End: 06-11-2016 Follow Up BP Check Follow Up BP Check [facility] Work Phone: Start: 04-04-2016 Screening for osteoporosis Bone Density Screening [facility] Start: 06-13-2015 End: 06-06-2016 Follow Up Appt 1 year Follow Up Appt 1 year [facility] Work Phone: Start: 06-13-2015 End: 06-06-2016 MMM MMM [facility] Work Phone: Start: 03-08-2015 End: 03-08-2015 [employer]NA[employer] MARKETING [employer] [facility] Work Phone: Start: 03-08-2015 End: 03-08-2015 Follow Up Appt 3 months Follow Up Appt 3 months [facility] Work Phone: Start: 08-05-2014 End: 08-05-2014 Follow Up Appt 6 months Follow Up Appt 6 months [facility] Work Phone: Start: 08-05-2014 End: 08-05-2014 MMM MMM [facility] Work Phone: Start: 02-10-2014 End: 02-10-2014 PORTF[employer] MANAG[employer] MARKETING [employer] [facility] Work Phone: Start: 02-10-2014 End: 02-10-2014 Follow Up Appt 6 months Follow Up Appt 6 months [facility] Work Phone: Start: 08-13-2013 End: 08-13-2013 Follow Up Appt 6 months Follow Up Appt 6 months [facility] Work Phone: Start: 08-13-2013 End: 08-13-2013 MMM MMM [facility] Work Phone: Start: 02-08-2013 End: 02-08-2013 PORT[employer] MANAG[employer] MARKETING [employer] [facility] Work Phone: Start: 02-08-2013 End: 02-08-2013 Follow Up Appt 6 months Follow Up Appt 6 months [facility] Work Phone: Start: 08-13-2012 End: 02-01-2013 Follow Up Appt 6 months Follow Up Appt 6 months [facility] Work Phone: Start: 08-13-2012 End: 02-01-2013 MMM MMM [facility] Work Phone: Start: 02-04-2012 End: 02-04-2012 Follow Up Appt 6 months Follow Up Appt 6 months [facility] Work Phone: Start: 04-25-2011 Shingrix Vaccine (2 of 3) Shingrix Vaccine (2 of 3) [facility] Start: 03-19-2006 Provider Instruction s for Treatment FOLLOW UP IN 4 MONTHS [facility] Work Phone: Start: 10-27-1963 Annual PCP Team [place] apurva Disease Visit Annual PCP Team Chronic Disease Visit [facility] Start: 10-27-1963 Anxiety Screening Anxiety Screening [facility] Start: 10-27-1963 BP Controlled (<130/80) BP Con trolled (<130/80) [facility] Start: 10-27-1963 Depression Screening Depression Scre ening [facility] Start: 10-27-1963 zzBP Controlled (<130/80) (Retired) zzBP Controlled (<130/80) (Retired) [facility] Cholesterol [Mass/volume] in Serum or Plasma [facility] Cholesterol in HDL [Mass/volume] in Serum or Plasma [facility] CT Abdomen and Pelvi s W contrast IV [facility] Lactoferrin [Presenc e] in Stool by Immunoassay [facility] Low density lipoprot ein cholesterol measurement [facility] NM Heart Views W str ess and W radionuclide IV [facility] Patient Education [facility] Work Phone: Patient referral [facility] Work Phone: Protein measurement [facility] Total cholesterol:HD L ratio measurement [facility] Triglycerides measurement [facility] VLDL cholesterol measurement [facility] Immunizations Immunization Date Immunization Notes Care Provider [facility] 02-25-2024 tetanus toxoid, redu lalo diphtheria toxoid, and acellular pertussis vaccine, adsorbed Dr. Michael Snowden MD Work Phone: [facility] 05-13-2017 influenza virus vacc ine, unspecified formulation Jovanni Matthew MD Work Phone: [facility] 03-17-2015 pneumococcal conjuga te vaccine, 13 valent [facility] 12-24-2014 influenza, high dose seasonal, preservative-free Jovanni Matthew MD Work Phone: [facility] 01-11-2013 influenza virus vacc ine, unspecified formulation Jovanni Matthew MD Work Phone: [facility] 02-28-2011 zoster vaccine, live Jovanni crump MD Work Phone: [facility] Work Phone: 02-19-2011 influenza virus vacc ine, unspecified formulation Jovanni Matthew MD Work Phone: [facility] 02-19-2011 pneumococcal polysaccharide vaccine, 23 valent [facility] 09-21-2007 tetanus toxoid, redu lalo diphtheria toxoid, and acellular pertussis vaccine, adsorbed Jovanni Matthew MD Work Phone: [facility] Payers Date Payer Category Payer Self-pay [id number] 2018 Medicare (Managed Care) [place] [id number] 2013 Medicare [id number] Unknown [facility] [place] [facility] [place] Unknown [id number] 2.16.840.1.328517.3.579. 2.462 Unknown [id number] 2.16840.1.377283.3.579. 2.462 Unknown [id number] 2.16.840.1.485009.3.579. 2.462 Unknown [id number] 2.16.840.1.750528.3.579. 2.462 Unknown [id number] 2.16.840.1.282339.3.579. 2.462 Unknown [id number] 2.16.840.1.502113.3.579. 2.462 Unknown [id number] 2.16.840.1.214934.3.579. 2.462 Unknown [id number] 2.16.840.1.647084.3.579. 2.462 Unknown [id number] 2.16.840.1.253425.3.579. 2.462 Unknown [id number] 2.16.840.1.087623.3.579. 2.462 Unknown [id number] 2.16.840.1.770777.3.579. 2.462 Unknown [id number] 2.16.840.1.896097.3.579. 2.462 Unknown [id number] 2.16.840.1.529303.3.579. 2.462 Unknown [id number] 2.16.840.1.180013.3.579. 2.462 Unknown [id number] 2.16.840.1.452061.3.579. 2.462 Unknown [id number] 2.16.840.1.164426.3.579. 2.462 Unknown [id number] 2.16.840.1.857209.3.579. 2.462 Unknown [id number] 2.16.840.1.796572.3.579. 2.462 Unknown [id number] 2.16.840.1.585304.3.579. 2.462 Unknown [id number] 2.16.840.1.841704.3.579. 2.462 Unknown [id number] 2.16.840.1.041178.3.579. 2.462 Unknown [id number] 2.16840.1.640577.3.579. 2.462 Unknown [id number] 2.16.840.1.466192.3.579. 2.462 Unknown [id number] 2.16.840.1.514959.3.579. 2.462 Unknown [id number] 2.16.840.1.619169.3.579. 2.462 Unknown [id number] 2.16.840.1.292068.3.579. 2.462 Unknown [id number] 2.16.840.1.600217.3.579. 2.462 Unknown [id number] 2.16.840.1.297524.3.579. 2.462 Unknown [id number] 2.16.840.1.611768.3.579. 2.462 Unknown [id number] 2.16.840.1.754205.3.579. 2.462 Unknown [id number] 2.16.840.1.469618.3.579. 2.462 Unknown [id number] 2.16.840.1.003182.3.579. 2.462 Unknown [id number] 2.16.840.1.820632.3.579. 2.462 Unknown [id number] 2.16.840.1.263812.3.579. 2.462 Unknown [id number] 2.16.840.1.351583.3.579. 2.462 Unknown [id number] 2.16.840.1.411022.3.579. 2.462 Unknown [id number] 2.16.840.1.188494.3.579. 2.462 Unknown [id number] 2.16.840.1.624276.3.579. 2.462 Unknown [id number] 2.16.840.1.374408.3.579. 2.462 Unknown [id number] 2.16.840.1.978212.3.579. 2.462 Unknown [id number] 2.16840.1.196485.3.579. 2.462 Unknown [id number] 2.16.840.1.860009.3.579. 2.462 Unknown [id number] 2.16.840.1.401651.3.579. 2.462 Social History Date Type Detail Facility Start: 04-10-2021 End: 05-09-2023 Tobacco smoking status IDIS Unknown if ever smoked [facility] Start: 09-21-2020 None [facility] Start: 09-21-2020 Homeless [facility] Start: 09-21-2020 Non-smoker [facility] Start: 1945 Sex Assigned At Female [facility] Start: 07-21-2024 End: 11-18-2024 Alcohol Use Alcohol Use [facility] Work Phone: Comment on above: Occasional alcohol u se tea once iin awhile Start: 04-16-2024 End: 07-21-2024 Tobacco smoking status NHIS Never smoked tobacco (finding) [facility] Start: 07-01-2024 End: 07-15-2024 Sex Female (finding) [facility] Start: 07-21-2024 Tobacco use and exposure Smokeless tobacco non-user [facility] Start: 07-21-2024 End: 11-18-2024 Alcoholic beverage intake Current drinker of alcohol (finding) [facility] Start: 07-21-2024 End: 11-18-2024 Tobacco use panel [facility] Start: 03-01-2012 National Score (1-100), lower number is lower risk 75 [facility] Start: 07-21-2024 Tobacco Comment Mother smoked in childhood home. ETS exposure in a restaurant. [facility] Start: 02-19-2012 Alcohol Comment holidays [facility] Start: 1945 Sex assigned at Not on file [facility] NEGATED: Highlighted row Not [facility] Goals Date Patient Goal Desired Activity /State Functional Status Date Assessment Result Facility 05-21-2024 Functional status Ambulates [facility] Work Phone: 04-16-2024 Functional status Ambulates [facility] Work Phone: 11-03-2014 Are you deaf, or do you have serious difficulty hearing No 11/03/2014 11:42 AM Dalila Nielsen RN No [facility] 11-03-2014 Are you blind, or do you have serious difficulty seeing, even when wearing glasses No 11/03/2014 11:42 AM Dalila Nielsen RN No [facility] 11-03-2014 Do you have serious difficulty walking or climbing stairs Yes 11/03/2014 11:42 AM Dalila Nielsen RN Yes [facility] 11-03-2014 Do you have difficul ty dressing or bathing No 11/03/2014 11:42 AM Dalila Nielsen RN No [facility] 11-03-2014 Because of a physica l, mental, or emotional condition, do you have difficulty doing errands alone such as visiting a physician's office or shopping Yes 11/03/2014 11:42 AM EDDalila Mata RN Yes [facility] Mental Status Date Assessment Result Facility 05-21-2024 Cognitive function Voice/Name [facility] Work Phone: 05-17-2024 Cognitive function Appropriate;C ooperativ e [facility] Work Phone: 04-16-2024 Cognitive function Voice/Name [facility] Work Phone: 11-03-2014 Because of a physica l, mental, or emotional condition, do you have serious difficulty concentrating, remembering, or making decisions Yes 11/03/2014 11:42 AM EDDalila Mata RN Yes [facility] Clinical Notes 06-14-2022 to 11-23-2024 Telephone Encounter - Karla Pineda RN - 11/23/2024 2:44 PM EDTTelephone Encounter - Karla Pineda RN - 11/23/2024 2:44 PM EDTPatient Instructions Note Date & Type Note Facility 11-23-2024 Telephone encounter Note Call placed to Pt's sister, Anny Espinosa. Notified her that the prior authorization for Prolia was approved by Pt's insurance, and she can schedule the nurse visit with Trinidad valenzuela RN at their convenience. Pt will be brought to the appt by Anny from [facility]; therefore, Anny wants to call back once she touches base with Pt to determine best date/time for Pt to come in for the injection. Dr. Hernandez already placed CAM order in Pt's chart. Karla Pineda RN November 23, 2024 2:46 PM [facility] 11-23-2024 Miscellaneous Notes Call placed to Pt's sister, Anny Espinosa. Notified her that the prior authorization for Prolia was approved by Pt's insurance, and she can schedule the nurse visit with Trinidad valenzuela RN at their convenience. Pt will be brought to the appt by Anny from [facility]; therefore, Anny wants to call back once she touches base with Pt to determine best date/time for Pt to come in for the injection. Dr. Hernandez already placed CAM order in Pt's chart. Karla Pineda RN November 23, 2024 2:46 PM documented in this encounter [facility] 11-19-2024 Telephone encounter Note Fax received Prolia approved pa# [phone] from 11/19/24-03/30/25. Placed in scanned docs. .me [facility] 11-19-2024 Miscellaneous Notes Fax received Prolia approved pa# [phone] from 11/19/24-03/30/25. Placed in scanned docs. .me Prior authorization for Prolia submitted to CoverMyMeds. [place]: [id number] Karla Pineda RN November 19, 2024 10:25 AM documented in this encounter [facility] 11-19-2024 Telephone encounter Note Prior authorization for Prolia submitted to CoverMyMeds. [place]: [id number] Karla Pineda RN November 19, 2024 10:25 AM [facility] 11-18-2024 Instructions Elzbieta Hernandez MD - 11/18/2024 3:55 PM EDT Regarding the calcium, postmenopausal women who are getting adequate calcium from dietary intake alone (approximately 1000 mg daily) do not need to take calcium supplements. I have included a list below of foods and how much calcium they contain so that you can estimate how much you are getting from your food intake. Food Calcium, milligrams Milk (skim, 2 percent, or whole, 8 oz [240 mL]) 300 Yogurt (6 oz [168 g]) 250 Penning[place] juice (with calcium, 8 oz [240 mL]) 300 Tofu with calcium (1/2 cup [113 g]) 435 Cheese (1 oz [28 g]) (hard cheese = higher calcium) 95 to 335 Cottage cheese (1/2 cup [113 g]) 130 Ice cream or frozen yogurt (1/2 cup [113 g]) 100 Soy milk (8 oz [240 mL]) 300 Beans (1/2 cup cooked [113 g]) 60 to 80 Dark, leafy green vegetables (1/2 cup cooked [113 g]) 50 to 135 Almonds (24 whole) 70 [place] (1 medium) 60 If you think you have inadequate dietary intake, you should take supplemental elemental calcium (generally 500 to 1000 mg/day), in divided doses at mealtime, such that their total calcium intake (diet plus supplements) approximates 1200 mg/day. Please do labs on fasting at 8 am before starting the medication Will send prescription for Prolia as pre your preference among the medications reviewed documented in this encounter [facility] 11-18-2024 Note HNO ID: [id number] Author: ELZBIETA HERNANDEZ MD Service: ? Author Type: Physician Type: Progress Notes Filed: 11/18/2024 18:10 Note Text: Endocrinology and Metabolism [place] Follow up note NAME: Lizette Davies is a 79 year old old female PCP: Michael Snowden MD Requesting Provider: No referring provider defined for this encounter. My final recommendations will be communicated back to the requesting physician by way of shared medical record or letter via [place] mail. Chief Complaint: HPI: Lizette Davies is a 79 year old female here to discuss bone health. She is accompanied by her sister today She lives in a nursing facility. PMHx significant for HTN, Myelopathy, Sarcoidosis as per chart review Patient is a poor historian from conversation today Previously evaluated for Osteoporosis by Dr. Ajay Dumont, who graduated from fellowship recently and history was taken from chart review From previous documentation, 78 year old with PMH of HTN, sarcoidosis she has back pain started in 04/14/2024, she started on Oxycodone since that time, she had compression fracture, she had epidural injection, then she was able to walk with walker, then the effect of the injection started to wean off. She had right ankle fracture. No HX of kidney stone. She is using Vitamin D 5000 international unit(s) daily " She was prescribed Evenity, which was denied by insurance, after which she was prescribed reclast once a year, which does not apopear to have been sent for prior authorization. She confirms that this medication was not taken As reported today, her calcium intake is very minimal, not even one serving per day. As per her sister, she was taking calcium supplements previously, which were discontinued on admission to nursing facility, including Vit D She walks with a cane, she is in wheel chair today No hx of cancers known, or radiation PAST MEDICAL HISTORY Diagnosis Date Blood type O+ Compression fracture of thoracic vertebra (HCC) DDD (degenerative disc disease), cervical MRI scanned into Epic January 11, 2014 ([facility]) DDD (degenerative disc disease), lumbosacral [...] 12/31/13 EGD ESOPHAGOGASTRODUODENOSCOPY TRANSORAL DIAGNOSTIC 02/16/15 EGD [facility] inpt ESOPHAGOGASTRODUODENOSCOPY TRANSORAL DIAGNOSTIC 05/11/15 EGD EXTRACTION, ERUPTED TOOTH OR EXPOSED ROOT (ELEVATION AND/OR FORCEPS REMOVAL) 1969' [place] teeth FOOT RIGHT OP SURGERY 01/2009 PAST SURGICAL HISTORY OF 1996 Bone fusion 1st MT and pin right foot PAST SURGICAL HISTORY OF 01/2013 left carpal tunnel surgery PAST SURGICAL HISTORY OF right Lasik 2002 PAST SURGICAL HISTORY OF 09/13 Skin Ca from [facility] [place] TONSILLECTOMY PRIMARY/SECONDARY Tonsillectomy Current Outpatient Medications on File Prior to Visit Medication Sig zoledronic acid (RECLAST) 5 mg/100 mL PREMIX piggyback Inject 100 mL intravenously one time only for 1 dose. romosozumab-aqqg (EVENITY) 105 mg/1.17 mL syrg syringe [...] mouth every 4 hours as needed for nausea/ (more content not included)... [facility] 11-18-2024 History of Presen t illness Narrative Images from the original note were not included. Endocrinology and Metabolism [place] Follow up note NAME: Lizette Davies is a 79 year old old female PCP: Michael Snowden MD Requesting Provider: No referring provider defined for this encounter. My final recommendations will be communicated back to the requesting physician by way of shared medical record or letter via [place] mail. Chief Complaint: HPI: Lizette Davies is a 79 year old female here to discuss bone health. She is accompanied by her sister today She lives in a nursing facility. PMHx significant for HTN, Myelopathy, Sarcoidosis as per chart review Patient is a poor historian from conversation today Previously evaluated for Osteoporosis by Dr. Ajay Dumont, who graduated from fellowship recently and history was taken from chart review From previous documentation, 78 year old with PMH of HTN, sarcoidosis she has back pain started in 04/14/2024, she started on Oxycodone since that time, she had compression fracture, she had epidural injection, then she was able to walk with walker, then the effect of the injection started to wean off. She had right ankle fracture. No HX of kidney stone. She is using Vitamin D 5000 international unit(s) daily " She was prescribed Evenity, which was denied by insurance, after which she was prescribed reclast once a year, which does not apopear to have been sent for prior authorization. She confirms that this medication was not taken As reported today, her calcium intake is very minimal, not even one serving per day. As per her sister, she was taking calcium supplements previously, which were discontinued on admission to nursing facility, including Vit D She walks with a cane, she is in wheel chair today No hx of cancers known, or radiation PAST MEDICAL HISTORY Diagnosis Date Blood type O+ Compression fracture of thoracic vertebra (HCC) DDD (degenerative disc disease), cervical MRI [facility] January 11, 2014 ([facility]) DDD (degenerative disc disease), lumbosacral [...] 12/31/13 EGD ESOPHAGOGASTRODUODENOSCOPY TRANSORAL DIAGNOSTIC 02/16/15 EGD [facility] inpt ESOPHAGOGASTRODUODENOSCOPY TRANSORAL DIAGNOSTIC 05/11/15 EGD EXTRACTION, ERUPTED TOOTH OR EXPOSED ROOT (ELEVATION AND/OR FORCEPS REMOVAL) 1969's [place] teeth FOOT RIGHT OP SURGERY 01/2009 PAST SURGICAL HISTORY OF 1995 Bone fusion 1st MT and pin right foot PAST SURGICAL HISTORY OF 01/2013 left carpal tunnel surgery PAST SURGICAL HISTORY OF right Lasik 2001 PAST SURGICAL HISTORY OF 09/13 Skin Ca from [facility] TONSILLECTOMY PRIMARY/SECONDARY <AGE 12 Tonsillectomy Current Outpatient Medications on File Prior to Visit Medication Sig zoledronic acid (RECLAST) 5 mg/100 mL PREMIX piggyback Inject 100 mL intravenously one time only for 1 dose. romosozumab-aqqg (EVENITY) 105 mg/1.17 mL syrg syringe [...] taking: Reported on 07/21/2024) COMPOUNDED PRESCRIPTION Viki IM-Sense defense 17 drops daily and working up to 60 drops daily (in divided doses). Serving size 30 drops. 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 Dx: Bilat sprained ankles, gait instability. acetaminophen (TYLENOL EXTRA STRENGTH) 500 mg tablet Take 1 tablet by mouth every 6 hours as needed for Pain. Magnesium 250 mg tab Take 1,000 mg by mouth. (Patient not taking: Reported on 07/21/2024) MULTIVITAMIN TAB Take one(1) tablet daily. (Patient not taking: Reported on 07/21/2024) No current facility-administered medications on file prior to visit. ALLERGIES Allergen Reactions Lisinopril Swelling, Anaphylaxis Face, mouth, and tongue. Alendronate Sodium GI Upset Cardura [Doxazosin] Other: See Comments Codeine Intolerance Headache Hydrochlorothiazide Other: See Comments Ibuprofen GI Upset Epigastric pain. In higher dose. Lipitor [Atorvastat* Intolerance complained of weakness of legs Nifedipine Other: See Comments FAMILY HISTORY Problem Relation Age of Onset Hypertension Father of ruptured aortic an. Cataract Father Hypertension Mother Asthma Mother In youth. Cataract Mother Diabetes Sister REVIEW OF SYSTEMS 10 point ROS was reviewed and negative unless indicated in the HPI Physical Exam: Pulse 92 Temp 36.4 C (97.6 F) (Temporal Artery) Resp 20 Wt 65.8 kg (145 lb) SpO2 97% BMI 30.31 kg/m Body mass index is 30.31 kg/m . General: WNWD, NAD, in wheel chair today Eyes: conjunctivae are pink, and moist. EOMI, No exopthalmos, lag, or stare Neck: The thyroid is normal in size, nontender Lymphatic: no cervical or supraclavicular adenopathy Cardiovascular: regular rate Respiratory: full sounds bilaterally with normal expansion Gastrointestinal: deferred Musculoskeletal: no lower extremity swelling Skin: normal, no rashes present Neurologic: no tremor with outstretched hands Pyschiatric: mood and affect are normal DATA REVIEW: Labs: Latest Ref Rng 05/02/2017 07/21/2024 Protein, Total 6.3 - 8.0 g/dL 7.0 Albumin 3.9 - 4.9 g/dL 3.9 Calcium 8.5 - 10.2 mg/dL 9.5 9.6 Bilirubin, Total 0.2 - 1.3 mg/dL 0.3 Alkaline Phosphatase 34 - 123 U/L 108 AST 13 - 35 U/L 19 Glucose 74 - 99 mg/dL 94 97 BUN 7 - 21 mg/dL 15 14 Creatinine 0.58 - 0.96 mg/dL 0.74 0.79 Sodium 136 - 144 mmol/L 143 139 Potassium 3.7 - 5.1 mmol/L 4.4 5.1 Chloride 98 - 107 mmol/L 103 100 CO2 22 - 30 mmol/L 26 25 Anion Gap 8 - 15 mmol/L 14 14 ALT 7 - 38 U/L 13 eGFR- >60 eGFR-All Other Races . >60 eGFR >=60 mL/min/1.73m 77 Magnesium 1.7 - 2.3 mg/dL TSH 0.270 - 4.200 mIU/L 0.762 Vitamin D 25 Hydroxy 31.0 - 80.0 ng/mL 69.0 65.9 PTH, Intact 15 - 65 pg/mL 20 Vit D1,25 Dihydroxy 19.9 - 79.3 pg/mL 34.0 Phosphorus 2.7 - 4.8 mg/dL 3.9 DXA: 01/08/2024 Assessment/plan: Chaparrita Davies is a 79 year old female who presents for evaluation of Bone health. She has a PMH of HTN, sarcoidosis she has back pain started in 04/14/2024, she started on Oxycodone since that time, she had compression fracture, she had epidural injection, then she was able to walk with walker, then the effect of the injection started to wean off. Osteoporosis: She has clinical osteoporosis It appears from chart review that she was discussed about anabolic and antiresorptive therapies for her condition. Evenity was initially prescribed and was denied by insurance Later, reclast was ordered but documentation does not indicate PA has been run, and patient did not receive the infusion. She also seems to not have much information about the medication- possible she did not focus during the visit at the main campus, or forgot as I had to repeat about the medications m ultiple times today. I discussed Reclast, Prolia, as well as forteo, Tymlos today. Side effects, duration of therapy, frequency of dosing, mode of administration are all discussed. Doubtful if forteo and tymlos will be approved, and hence Prolia and Reclast are the most likely options. She prefers Prolia over Reclast due to injection vs infusion. Orders placed- PA pending Advised taking 800-1000 mg of calcium daily, atleast. List of calcium rich foods reviewed and shared in writing, as well as options to take calcium supplements if not getting through diet Indicated getting labs on fasting at 8 am before starting therapy 1. History of vertebral compression fracture (Primary) 2. Age-related osteoporosis with current pathological fracture, initial encounter - C TELOPEPTIDE, BETA; Future - ALK PHOS BONE SPEC; Future - denosumab 60 mg injection (PROLIA) Follow up in 3 months All questions welcomed and answered to satisfaction Patient understands and agrees with the plan discussed. I spent a total of 60 minutes on the date of the service which included preparing to see the patient, [id number] patient care, completing clinical documentation, obtaining and/or reviewing separately obtained history, performing a medically appropriate examination, counseling and educating the patient/family/caregiver, ordering medications, tests, or procedures, independently interpreting results (not separately reported), and communicating results to the patient/family/caregiver. Elzbieta Hernandez MD Endocrinology Associate Staff [facility] Endocrinology and Metabolism [place] [phone] Medical Decision Making: Medical Decision Making Level: 1 - N/A documented in this encounter [facility] 11-02-2024 Evaluation note Diagnosis Onset Date Resolution Abnormal electrocardiogram acute November 02, 2024 10:03am Essential (primary) hypertension chronic November 02, 2024 10:03am Nonrheumatic aortic (valve) stenosis chronic November 02 10:03am Supraventricular tachycardia chronic November 02, 2024 10:03am [facility] Work Phone: 1(160) 624-434405-25-2025 Telephone encounter Note* Telephone Encounter - Mary Borden - 08/22/2024 9:59 AM EDT Images from the original note were not included. Dear Provider, Your patient's medication Evenity 210 mg was denied. Denial letters are sent directly to the patient and at times to the healthcare providers. If we receive a denial letter, it will be indexed for your review. If you want to appeal the decision. Please submit your request via staff message to the [employer] Appeals Pool ([id number]). You can find templates listed below to support your appeal in [employer] (Epic drop down, select patient care, select send letter). If it is an urgent request, you can email the [place] auth Team at . Please make sure the documents beloware completed in order to process your request. If the appeal is denied, do you want to schedule a peer to peer Yes/No. We will schedule peer to peer automatically if yes. Thank You, Jorje Chandra Auth Appeals Team Jorje GRIFFIN Appeal letter Jorje GRIFFIN Letter of Medical Necessity Jorje Hernandez Prior Emergency Services Professional III Endocrinology & Metabolism [place] Letter scanned into chart [facility]05-25-2025 Miscellaneous Notes* Telephone Encounter - Mary Borden - 08/22/2024 9:59 AM EDT Images from the original note were not [...] Jorje [facility] Auth Appeals Pool ([id number]). You can find templates listed below to support your appeal in [employer] (Epic drop down, select patient care, select send letter). If it is an urgent request, you can email the GABY Chandra auth Team at . Please make sure the documents beloware completed in order to process your request. If the appeal is denied, do you want to schedule a peer to peer Yes/No. We will schedule peer to peer automatically if yes. Thank You, Jorje Chandra Auth Appeals Team Jorje GRIFFIN Appeal letter Jorje GRIFFIN Letter of Medical Necessity Jorje GRIFFIN [facility] Mary Prior Emergency Services Professional III Endocrinology & Metabolism [place] Letter scanned into chart documented in [facility]25 NoteHNO ID: [id number] Author: SETH CHOWDARY MD Service: ? Author Type: Physician Type: Progress Notes Filed: 08/13/2024 08:45 Note Text: SPINE SURGERY OUTPATIENT CONSULT This is an in-person visit. SERVICE DATE: 08/13/2024 PCP: Michael Snowden MD REFERRING PROVIDER: Jovanni Matthew [address] [place] [address] Lizette Davies is a 78 year old [...] walked recently and currently resides in a halfway facility. She does not report bowel or [...] type O+ Compression fracture of thoracic vertebra ([facility]) DDD (degenerative disc disease), cervical MRI scanned into [facility] January 11, 2014 ([facility]) DDD (degenerative disc disease), lumbosacral [...] 12/31/13 EGD ESOPHAGOGASTRODUODENOSCOPY TRANSORAL DIAGNOSTIC 02/16/15 EGD [facility] inpt ESOPHAGOGASTRODUODENOSCOPY TRANSORAL DIAGNOSTIC 05/11/15 EGD EXTRACTION, ERUPTED TOOTH OR EXPOSED ROOT (ELEVATION AND/OR FORCEPS REMOVAL) 1969' [place] teeth FOOT RIGHT OP SURGERY 01/2009 PAST SURGICAL HISTORY OF 1996 Bone fusion 1st MT and pin right foot PAST S (more content not included)...[facility]05-16-2025 History of Present illness Narrative* Seth Chowdary MD - 08/13/2024 7:55 AM EDT SPINE SURGERY OUTPATIENT CONSULT This is an in-person visit. SERVICE DATE: 08/13/2024 PCP: Michael Snowden MD REFERRING PROVIDER: Jovanni Matthew [address] [facility] [address] Lizette Davies is a 78 year old [...] She has been diagnosed with sarcoidosis identified aftera lung biopsy. She does not complain of shortness of breath or other symptoms related to sarcoidosis. She reports numbness in her legs, feet, and hands, and experiences pain in her right leg, with lesssevere pain in the left leg. She does not endorse arm pain. She is able to walk with a walker but has not walked recently and currently resides in a halfway facility. She does not report bowel or bladder dysfunction, though she occasionally experiences constipation due to oxycodone use. In March, she was hospitalized for six weeks due to back pain and received an epidural injection,which provided relief for 6-8 weeks. She is [...] type O+ Compression fracture of thoracic vertebra ([facility]) DDD (degenerative disc disease), cervical MRI scanned into [facility] January 11, 2014 ([facility]) DDD (degenerative disc disease), lumbosacral [...] surgery by Dr. Joe Dhillon on left goowdin Snoring Unspecified constipation 03/08/2005 PAST SURGICAL HISTORY Procedure Laterality Date ARTHRP KNE CONDYLE&PLATU MEDIAL&LAT COMPARTMENTS 11/05/2004 Knee replacement, total left ARTHRP KNE CONDYLE&PLATU MEDIAL&LAT COMPARTMENTS 07/2010 right knee COLONOSCOPY FLX DX W/COLLJ SPEC WHEN PFRMD 11/24/2000 Colonoscopy COLONOSCOPY FLX DX W/COLLJ SPEC WHEN PFRMD 10/06/2014 Colonoscopy ESOPHAGOGASTRODUODENOSCOPY TRANSORAL DIAGNOSTIC 12/31/13 EGD ESOPHAGOGASTRODUODENOSCOPY TRANSORAL DIAGNOSTIC 02/16/15 EGD [facility] inpt ESOPHAGOGASTRODUODENOSCOPY TRANSORAL DIAGNOSTIC 05/11/15 EGD EXTRACTION, ERUPTED TOOTH OR EXPOSED ROOT (ELEVATION AND/OR FORCEPS REMOVAL) Amberg teeth FOOT RIGHT OP SURGERY 01/2009 PAST [...] needed for nausea/vomiting. 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 Dx: Bilat sprained ankles, gait instability. acetaminophen (TYLENOL EXTRA STRENGTH) 500 mg tablet Take 1 tablet by mouth every 6 hours as neededfor Pain. metoprolol succinate ER (TOPROL XL) 25 [...] L5-S1 with bilateral L5 foraminal stenosis. L1 compressionfracture. DEXA: osteopenia ASSESSMENT/PLAN (M43.10) Acquired spondylolisthesis (primary encounter diagnosis) (M47.812) Cervical spondylosis without myelopathy (M48.061) Neural foraminal stenosis of lumbar spine (S32.010A) Closed compression fracture of body of L1 vertebra (HCC) Lizette Davies is not a candidate for surgery at this time and will continue with medical management of his/her condition. Discussed surgical intervention; however, due to patient's comorbidities, including sarcoidosis andosteopenia, the risks of surgery are substantial, with [...] is primarily lower back and leg, likely dueto spondylolisthesis. - No specific treatment for the compression fracture at this time; focus on managing spondylolisthesis and neural foraminal stenosis. RTC prn SIGNATURE: Seth Chowdary MD PATIENT NAME: Lizette Davies DATE: August 13, 2024 TIME: 7:55 AM PAGER: documented in [facility]25 NoteHNO ID: [id number] Author: MILLIE PETTY MD Service: ? Author [...] taking: Reported on 07/21/2024) COMPOUNDED PRESCRIPTION Viki IM-Sense defense 17 drops daily and working up to 60 drops daily (in divided doses). Serving size 30 drops. 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 Dx: Bilat sprained ankles, gait [...] MRI scanned into [facility] January 11, 2014 ([facility]) DDD (degenerative disc disease), lumbosacral [...] WHEN PFRMD 11/24/2000 Co (more content not included)...[facility]04-23-2025 Instructions* Patient Instructions* Jovanni Matthew MD - 07/21/2024 1:43 PM EDT Bring records including bone density testing to appointments with metabolic bone and spine surgeon Pain medication per pain management documented in this encounterThe [facility]-2025 NoteHNO ID: [id number] Author: MILLY SINGH RN Service: ? Author [...] tests/records were reviewed: CD, reports Milly Singh RN[facility] History of Present illness Narrative* Milly Singh RN - 07/21/2024 12:28 PM EDT Patient presents with chief complaints of back [...] were reviewed: CD, reports Milly Singh RN * Jovanni Matthew MD - 07/21/2024 12:04 PM EDT Physical Medicine and Rehabilitation New patient July [...] transitional care- ECF - PT stopped at [facility]. 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 Dx: Bilat sprained ankles, gait instability. acetaminophen (TYLENOL EXTRA STRENGTH) 500 mg tablet Take 1 tablet by mouth every 6 hours as neededfor Pain. Magnesium 250 mg tab Take 1,000 [...] cervical and LS ddd, HTN, gastroparesis, h/o CT, h/o GIB, sarcoidosis, leg SCC, with h/o [...] which included preparing to see the patient, [id number] patient care, completing clinical documentation, obtaining and/or reviewing separately obtained history, performing a medically appropriate examination, counseling and educating the pat ient/family/caregiver, ordering medications, tests, or procedures, and communicating with other HCPs (not separately reported). documented in this encounterThe [facility]04-[facility]-2025 NoteHNO ID: [id number] Author: JOVANNI MATTHEW MD Service: ? Author [...] transitional care- ECF - PT stopped at [facility]. Can walk some with walker- about 30 [...] (degenerative disc disease), cervical MRI scanned into [facility] January 11, 2014 ([facility]) DDD (degenerative disc disease), lumbosacral [...] 12/31/13 EGD ESOPHAGOGASTRODUODENOSCOPY TRANSORAL DIAGNOSTIC 02/16/15 EGD [facility] inpt ESOPHAGOGASTRODUODENOSCOPY TRANSORAL DIAGNOSTIC 05/11/15 EGD EXTRACTION, ERUPTED TOOTH OR EXPOSED ROOT (ELEVATION AND/OR FORCEPS REMOVAL) 1969' [place] teeth FOOT RIGHT OP SURGERY 01/2009 PAST SURGICAL HISTORY OF 1996 Bone fusion 1st MT and pin right foot PAST SURGICAL HISTORY OF 01/2013 left carpal tunnel surgery PAST SURGICAL HISTORY OF right Lasik 2001 PAST SURGICAL HISTORY OF 09/13 Skin (more content not included)...[facility]02-19-2025 Note [facility]02-18-2025 [facility]01-17-2025 Evaluation note* Diagnosis Onset Date Resolution Status Admit Date Compression fracture of L1 vertebra acute April 16 3:42pm Debility acute April 16, 2024 3:42pm Essential (primary) hypertension acute April 16 3:42pm Hypomagnesemia acute April 162024 3:42pm Neuropathic pain, leg, bilateral acute April 16 3:42pm Postmenopausal bleeding acute J anuary 2024 3:42pm Radiculopathy of lumbar region acute April 16, 2024 3:42pm Radiculopathy of lumbosacral region acute April 16 3:42pm Vitamin D deficiency acute mee2024 3:42pm Sarcoidosis chronic April 16, 2024 3:42pm Intractable low back pain resolved April 16, 2024 3:42pm [facility] Work Phone: 1(270) 749-545101-17-2025 [facility]01-17-2025 [facility]01-15-2025 Evaluation note* Diagnosis Onset Date Resolution [...] resolved April 16, 2024 3:42pm [facility] Work Phone: 1(785) 714-199301-15-2025 [facility]01-14-2025 [facility]02-02-2024 Discharge summary Author Geo Phillip [facility] May 02, 2023 3:54pm Note Date/Time May 02, 2023 3 :54pm [facility] [address] [place] [address]. [address] [place] [address] / REHABILITATION SERVICES DISCHARGE SUMMARY MR#: [id number] Acct: [id number] Name: LIZETTE DAVIES Rep #: [id number] : 1945 77 From: Geo Phillip PT, [...] please feel free to call me at [phone]. Thank you for the referral of thispatient. Sincerely, Geo Phillip PT, ATC Balance/Gait/Functional tests Balance/Special Test Scores Lower Extremity Functional Score: 19 Improvement % Improvement: 60 <Electronically signed by Geo Phillip PT, ATC> 05/02/23 9144 CC: Dr. Michael Snowden MD ~ [facility] Signed [facility] Work Phone: 1(790) 274-203803-17-2023 Discharge summary Author Geo Phillip [facility] June 14, 2022 3:55pm Note Date/Time June 14, 2022 3:4 9pm [facility] [address] [place] [address] [address] [place] [address] / REHABILITATION SERVICES DISCHARGE SUMMARY MR#: [id number] Acct: [id number] Name: LIZETTE DAVIES Rep #: [id number] : 1945 76 From: Geo Phillip PT, [...] please feel free to call me at [phone]. Thank you for the referral of thispatient. Sincerely, Geo Phillip, PT, ATC Balance/Gait/Functional tests - Balance/Special Test Scores Lower Extremity Functional Score: 12 <Electronically signed by Geo Phillip PT, ATC> 06/14/22 1549 CC: Dr. Michael Snowden MD ~ [facility] Signed [facility] Work Phone: Evaluation noteNo assessment information available [facility] Work Phone: Evaluation note* Diagnosis Onset Date Resolution Status Essential (primary) hypertension chronic Nonrheumatic aortic (valve) stenosis chronic Supraventricular tachycardia chronic [facility] Work Phone: Evaluation note* Diagnosis Onset Date Resolution Status Abdominal pain acute Diarrhea chronic [facility] Work Phone: Evaluation note* Diagnosis Onset Date Resolution Status Cellulitis acute Gastroparesis acute Diarrhea chronic [facility] Work Phone: Evaluation note* Diagnosis Onset Date Resolution Status Essential (primary) hypertension chronic Nonrheumatic aortic (valve) stenosis chronic Supraventricular tachycardia chronic Cellulitis acute Gastroparesis acute Diarrhea chronic [facility] Work Phone: Evaluation note* Diagnosis Onset Date Resolution Status Cellulitis acute Gastroparesis acute Diarrhea chronic Essential (primary) hypertension chronic Nonrheumatic aortic (valve) stenosis chronic Supraventricular tachycardia [facility] Work Phone: Evaluation note* Diagnosis Osteopenia, unspecified location- Primary History of vertebral compression fracture Spondylolisthesis, grade 3 Acquired spondylolisthesis [facility] Diagnosis Acquired spondylolisthesis- Primary Cervical spondylosis without myelopathy Neural foraminal stenosis of lumbar spine Spinal stenosis, lumbar region, without neurogenic claudication Closed compression fracture of body of L1 vertebra (HCC) documented in this encounter [facility] note* Diagnosis Age-related osteoporosis with current pathological fracture, initial encounter- Primary documented in this encounter [facility] note* Diagnosis Onset Date Resolution Status Admit Date Abnormal electrocardiogram acute November 02, 2024 10:03am Essential (primary) hypertension chr onic November 02, 2024 10:03am Nonrheumatic aortic (valve) stenosis chronic November 02, 2024 10:03am Supraventricular tachycardia chronic November 02, 2024 10:03am [facility] Work Phone: Evaluation note* Diagnosis History of vertebral compression fracture- Primary Age-related osteoporosis with current pathological fracture, initial encounter documented in this encounter [facility] for referral (narrative)No reason for referral information [facility] Work Phone: Chief Complaint and Reason for Visit Chief [...] 3 M FU Pain in left knee [id number] Reason for Visit Cellulitis Gastroparesis Diarrhea Essential (primary) hypertension Nonrheumatic aortic (valve) stenosis Supraventricular tachycardia Chief Complaint BALANCE RX HERE 3 M FU Pain in left knee MURMUR, SVT [id number] Reason for Visit Essential (primary) hypertension Nonrheumatic [...] 10:56am ADMISSION EXAM May 25, 2024 1:55pm [facility] June 01, 2024 4: 00am [facility] June 08, 2024 4 :00am [...] 10:56am ADMISSION EXAM May 25, 2024 1:55pm [facility] June 01, 2024 4: 00am [facility] June 08, 2024 4 :00am [facility] June 15, 2024 5 :00am [...] 10:56am ADMISSION EXAM May 25, 2024 1:55pm [facility] June 01, 2024 4: 00am [facility] June 08, 2024 4 :00am [facility] June 15, 2024 5 :00am [facility] June 22, 2024 5 :00am Chief Complaint Admit Date LUMBAR COMPRESSION FRACTURE W/PAIN Meleua ry 2024 1:26pm LUMBAR COMPRESSION FRACTURE W/PAIN Yani ry 2024 4:22pm LUMBAR COMPRESSION FRACTURE W/PAIN Meleua ry 2024 10:49am PREOP April 14, 2024 4 :50am LUMBAR COMPRESSION FRACTURE W/PAIN Meleua ry 2024 11:43am LUMBAR COMPRESSION FRACTURE W/PAIN Meleua ry 2024 3:42pm LUMBAR COMPRESSION FRACTURE W/PAIN Yani ry 2024 10:46am LUMBAR COMPRESSION FRACTURE W/PAIN Yani ry 2024 9:51am LUMBAR COMPRESSION FRACTURE W PAIN Yani ry 2024 3:42pm ADMISSION EXAM May 21, 2024 10:56am ADMISSION EXAM May 25, 2024 1:55pm [facility] WORK June 01, 2024 4: 00am [facility] WORK June 08, 2024 4 :00am [facility] WORK June 15, 2024 5 :00am [facility] WORK June 22, 2024 5 :00am NEW CONCERN June 23, 2024 4:5 8pm [facility] June 29, 2024 5: 00am [facility] WORK July 06, 2024 5: 00am [facility] WORK July 13, 2024 5 :00am Chief Complaint Admit Date LUMBAR COMPRESSION FRACTURE W PAIN Yani ry 2024 3:42pm ADMISSION EXAM May 21, 2024 10:56am ADMISSION EXAM May 25, 2024 1:55pm [facility] WORK June 01, 2024 4: 00am [facility] WORK June 08, 2024 4 :00am [facility] WORK June 15, 2024 5 :00am [facility] WORK June 22, 2024 5 :00am NEW CONCERN June 23, 2024 4:5 8pm [facility] June 29, 2024 5: 00am [facility] WORK July 06, 2024 5: 00am GROUP [facility] LAB WORK July 13, 2024 5 :00am GROUP [facility] LAB WORK July 20, 2024 4 :00am GROUP [facility] LAB WORK July 27, 2024 5 :00am [...] 10:56am ADMISSION EXAM May 25, 2024 1:55pm [facility] June 01, 2024 4: 00am GROUP [facility] WORK June 08, 2024 4 :00am GROUP [facility] LAB WORK June 15, 2024 5 :00am [facility] WORK June 22, 2024 5 :00am NEW CONCERN June 23, 2024 4:5 8pm GROUP [facility] LAB WORK June 29, 2024 5: 00am GROUP HOME LAB WORK July 06, 2024 5: 00am GROUP HOME LAB WORK July 13, 2024 5 :00am GROUP HOME LAB WORK July 20, 2024 4 :00am GROUP HOME LAB WORK July 27, 2024 5 :00am LABWORK August 10, 2024 5:00a m Chief Complaint Admit Date LUMBAR COMPRESSION FRACTURE W PAIN Yani ry 2024 3:42pm ADMISSION EXAM May 21, 2024 10:56am ADMISSION EXAM May 25, 2024 1:55pm [facility] WORK June 01, 2024 4: 00am GROUP [facility] LAB WORK June 08, 2024 4 :00am GROUP HOME LAB WORK June 15, 2024 5 :00am GROUP HOME LAB WORK June 22, 2024 5 :00am NEW CONCERN June 23, 2024 4:5 8pm GROUP HOME LAB WORK June 29, 2024 5: 00am GROUP HOME LAB WORK July 06, 2024 5: 00am GROUP HOME LAB WORK July 13, 2024 5 :00am GROUP HOME LAB WORK July 20, 2024 4 :00am GROUP HOME LAB WORK July 27, 2024 5 :00am GROUP HOME LAB WORK August 03, 2024 5:00 am LABWORK August 10, 2024 5:00a m GROUP HOME LAB WORK August 17, 2024 5:0 0am Chief Complaint Admit Date GROUP HOME LAB WORK July 06, 2024 5: 00am GROUP HOME LAB WORK July 13, 2024 5 :00am GROUP HOME LAB WORK July 20, 2024 4 :00am GROUP HOME LAB WORK July 27, 2024 5 :00am GROUP HOME LAB WORK August 03, 2024 5:00 am LABWORK August 10, 2024 5:00a m [facility] WORK August 17, 2024 5:0 0am GROUP HOME LAB WORK August 24, 2024 5:0 0am GROUP HOME LAB WORK August 31, 2024 5:0 0am GROUP HOME LAB WORKSeptember 07, 2024 5 :00am GROUP HOME LAB WORK September 14, 2024 5: 00am GROUP HOME LAB WORK September 21, 2024 5: 00am GROUP HOME LAB WORK September 28, 2024 5:0 0am GROUP [facility] WORK October 14, 2024 5: 00am ABN HYPERTENSION/EKG November 02, 2024 10 :03am Reason for Visit Admit Date Abnormal electrocardiogram November 02, 2 025 10:03am Essential (primary) hypertension November 02, 2024 10:03am Nonrheumatic aortic (valve) stenosis Aug us2024 10:03am Supraventricular tachycardia November 02, 2024 10:03am Chief Complaint Admit Date GROUP HOME LAB WORK July 20, 2024 4 :00am GROUP [facility] LAB WORK July 27, 2024 5 :00am GROUP HOME LAB WORK August 03, 2024 5:00 am LABWORK August 10, 2024 5:00a m [facility] LAB WORK August 17, 2024 5:0 0am GROUP HOME LAB WORK August 24, 2024 5:0 0am GROUP HOME LAB WORK August 31, 2024 5:0 0am GROUP HOME LAB WORK' September 07, 2024 5 :00am GROUP HOME LAB WORK September 14, 2024 5: 00am GROUP HOME LAB WORK September 21, 2024 5: 00am GROUP HOME LAB WORK September 28, 2024 5:0 0am New Concern October 13, 2024 2:27 pm GROUP [facility] LAB WORK October 14, 2024 5: 00am ABN HYPERTENSION/EKG November 02, 2024 10 :03am Chief Complaint Admit Date GROUP HOME LAB WORK July 20, 2024 4 :00am GROUP HOME LAB WORK July 27, 2024 5 :00am GROUP HOME LAB WORK August 03, 2024 5:00 am LABWORK August 10, 2024 5:00a m GROUP HOME LAB WORK August 17, 2024 5:0 0am GROUP HOME LAB WORK August 24, 2024 5:0 0am GROUP HOME LAB WORK August 31, 2024 5:0 0am GROUP HOME LAB WORK' September 07, 2024 5 :00am GROUP HOME LAB WORK September 14, 2024 5: 00am GROUP HOME LAB WORK September 21, 2024 5: 00am GROUP [facility] LAB WORK September 28, 2024 5:0 0am Follow Up Visit September 28, 2024 3:00p m New Concern October 13, 2024 2:27 pm [facility] WORK October 14, 2024 5: 00am ABN HYPERTENSION/EKG November 02, 2024 10 :03am Family History No Family History Records Found [...] Will Yes April 10 5:15pm Power of Back Roll Lathe Operator Yes April 10, 2021 5:15pm Advance Directive Response Recorded Date/ Time Advance Directives Yes January 1:49am Living Will Yes April 10 4:15pm Power of Back Roll Lathe Operator Yes April 10, 2021 4:15pm Advance Directive Response Recorded Date/ Time Living Will No March 30, 9:41pm Do you have a Healthcare Power of Back Roll Lathe Operator? No March 30, 2024 9:41pm Living Will Yes April 10 5:15pm Do you have a Healthcare Power of Back Roll Lathe Operator? Yes April 10, 2021 5:15pm Living Will No April 11 3:41pm Do you have a Healthcare Power of Back Roll Lathe Operator? No April 11, 2024 3:41pm Living Will No April 19 5:36pm Do you have a Healthcare Power of Back Roll Lathe Operator? No April 19, 2024 5:36pm Advance Directives Yes January 2:49am Advance Directive Response Recorded Date/ Time Living Will No April 11 3:41pm Do you have a Healthcare Power of Back Roll Lathe Operator? No April 11, 2024 3:41pm Living Will No April 19 5:36pm Do you have a Healthcare Power of Back Roll Lathe Operator? No April 19, 2024 5:36pm Advance Directives Yes January 2:49am Advance Directive Response Recorded Date/ Time Living Will No April 19 5:36pm Do you have a Healthcare Power of Back Roll Lathe Operator? No April 19, 2024 5:36pm Advance Directives Yes January 2:49am Advance Directive Response Recorded Date/ Time Advance Directives Yes January 2:49am Summary Purpose [...] 2024 End: May 21, 2024 Audra Drake MUTUEL TELLER, MUTUEL TELLER-C Attending Provider Active Start: May 21, 2024 [...] Active Start: June 22, 2024 Audra JAVIER NP-Michael Attending Provider Active Start: June 22, 2024 Team Status: Active Member Role Status Dates Dr. Michael Snowden MD Primary Care Provider Active Start: June 29, 2024 Audra JAVIER NP-Michael Attending Provider Active Start: June 29, 2024 [...] Attending Provider Active Start: July 13, 2024 Forest Nursery Supervisor Relationship Specialty Start Date End Date [...] Care Provider Active Start: July 27, 2024 DIEUDONNE NoeC Attending Provider Active Start: July 27, 2024 Team Status: Active Member Role Status Dates Dr. Michael Snowden MD Primary Care Provider Active Start: August 03, 2024 MAR Noe Attending Provider Active Start: August 03, 2024 Forest Nursery Supervisor Relationship Specialty Start Date End Date Michael Snowden Chi PCP - General Gerontology 09/05/17 Forest Nursery Supervisor Relationship Specialty Start Date End Date Michael Snowden Chi PCP - General Gerontology 09/05/17 Forest Nursery Supervisor Relationship Specialty Start Date End Date [...] Attending Provider Active Start: August 31, 2024 Team Status: Active Member Role/Relationship Status Dates Dr. Michael Snowden MD Family Provider Active Dr. Michael Snowden MD Primary Care Provider Active Team Status: Inactive Member Role/Relationship Status Dates Dr. Michael Snowden MD Primary Care Provider Active Start: July 06, 2024 End: July 06, 2024 Nikia JAVIER MD Attending Provider Active Start: July 06, 2024 End: July 06, 2024 Team Status: Inactive Member Role/Relationship Status Dates Dr. Michael Snowden MD Primary Care Provider Active Start: July 13, 2024 End: July 13, 2024 Nikia JAVIER MD Attending Provider Active Start: July 13, 2024 End: July 13, 2024 Team Status: Inactive Member Role/Relationship Status Dates Dr. Michael Snowden MD Primary Care Provider Active Start: July 20, 2024 End: July 20, 2024 Nikia JAVIER MD Attending Provider Active Start: July 20, 2024 End: July 20, 2024 Nikia JAVIER MD Referring Provider Active Start: July 20, 2024 End: July 20, 2024 Team Status: Inactive Member Role/Relationship Status Dates Dr. Michael Snowden MD Primary Care Provider Active Start: July 27, 2024 End: July 27, 2024 MRA Noe Attending Provider Active Start: July 27, 2024 End: July 27, 2024 Team Status: Inactive Member Role/Relationship Status Dates Dr. Michael Snowden MD Primary Care Provider Active Start: August 03, 2024 End: August 03, 2024 MAR Noe Attending Provider Active Start: August 03, 2024 End: August 03, 2024 Team Status: Inactive Member Role/Relationship Status Dates Dr. Michael Snowden MD Primary Care Provider Active Start: August 10, 2024 End: August 10, 2024 Nikia JAVIER MD Attending Provider Active Start: August 10, 2024 End: August 10, 2024 Team Status: Inactive Member Role/Relationship Status Dates Dr. Michael Snowden MD Primary Care Provider Active Start: August 17, 2024 End: August 17, 2024 Nikia JAVIER MD Attending Provider Active Start: August 17, 2024 End: August 17, 2024 Team Status: Active Member Role/Relationship Status Dates Dr. Michael Snowden MD Primary Care Provider Active Start: August 24, 2024 Nikia JAVIER MD Attending Provider Active Start: August 24, 2024 Team Status: Active Member Role/Relationship Status Dates Dr. Michael Snowden MD Primary Care Provider Active Start: August 31, 2024 MAR Noe Attending Provider Active Start: August 31, 2024 Team Status: Active Member Role/Relationship Status Dates Dr. Michael Snowden MD Primary Care Provider Active Start: September 07, 2024 Nikia JAVIER MD Attending Provider Active Start: September 07, 2024 Team Status: Active Member Role/Relationship Status Dates Dr. Michael Snowden MD Primary Care Provider Active Start: September 14, 2024 Nikia JAVIER MD Attending Provider Active Start: September 14, 2024 Team Status: Active Member Role/Relationship Status Dates Dr. Michael Snowden MD Primary Care Provider Active Start: September 21, 2024 Nikia JAVIER MD Attending Provider Active Start: September 21, 2024 Team Status: Active Member Role/Relationship Status Dates Dr. Michael Snowden MD Primary Care Provider Active Start: September 28, 2024 Audra JAVIER MUTUEL TELLER-C Attending Provider Active Start: September 28, 2024 Team Status: Active Member Role/Relationship Status Dates Dr. Michael Snowden MD Primary Care Provider Active Start: October 14, 2024 Nikia JAVIER MD Attending Provider Active Start: October 14, 2024 Team Status: Active Member Role/Relationship Status Dates Dr. Michael Snowden MD Primary Care Provider Active Start: November 02, 2024 Audra JAVIER MUTUEL TELLER-C Attending Provider Active Start: November 02, 2024 Team Status: Inactive Member Role/Relationship Status Dates Dr. Michael Snowden MD Primary Care Provider Active Start: November 02, 2024 End: November 02, 2024 Dr. Michael Snowden MD Referring Provider Active Start: November 02, 2024 End: November 02, 2024 Mari Medina NP MUTUEL TELLER-C Attending Provider Active Start: November 02, 2024 End: November 02, 2024 Team Status: Inactive Member Role/Relationship Status Dates Dr. Michael Snowden MD Primary Care Provider Active Start: July 20, 2024 End: July 20, 2024 Nikai JAVIER MD Attending Provider Active Start: July 20, 2024 End: July 20, 2024 Nikia JAVIER MD Referring Provider Active Start: July 20, 2024 End: July 20, 2024 Team Status: Inactive Member Role/Relationship Status Dates Dr. Michael Snowden MD Primary Care Provider Active Start: July 27, 2024 End: July 27, 2024 Audra JAVIER MUTUEL TELLER-C Attending Provider Active Start: July 27, 2024 End: July 27, 2024 Team Status: Inactive Member Role/Relationship Status Dates Dr. Michael Snowden MD Primary Care Provider Active Start: August 03, 2024 End: August 03, 2024 Audra JAVIER MUTUEL TELLER-C Attending Provider Active Start: August 03, 2024 End: August 03, 2024 Team Status: Inactive Member Role/Relationship Status Dates Dr. Michael Snowden MD Primary Care Provider Active Start: August 10, 2024 End: August 10, 2024 Nikia JAVIER MD Attending Provider Active Start: August 10, 2024 End: August 10, 2024 Team Status: Inactive Member Role/Relationship Status Dates Dr. Michael Snowden MD Primary Care Provider Active Start: August 17, 2024 End: August 17, 2024 Nikia JAVIER MD Attending Provider Active Start: August 17, 2024 End: August 17, 2024 Team Status: Active Member Role/Relationship Status Dates Dr. Michael Snowden MD Primary Care Provider Active Start: August 24, 2024 Nikia JAVIER MD Attending Provider Active Start: August 24, 2024 Team Status: Active Member Role/Relationship Status Dates Dr. Michael Snowden MD Primary Care Provider Active Start: August 31, 2024 Audra JAVIER MUTUEL TELLER-C Attending Provider Active Start: August 31, 2024 Team Status: Active Member Role/Relationship Status Dates Dr. Michael Snowden MD Primary Care Provider Active Start: September 07, 2024 Nikia JAVIER MD Attending Provider Active Start: September 07, 2024 Team Status: Active Member Role/Relationship Status Dates Dr. Michael Snowden MD Primary Care Provider Active Start: September 14, 2024 Nikia JAVIER MD Attending Provider Active Start: September 14, 2024 Team Status: Active Member Role/Relationship Status Dates Dr. Michael Snowden MD Primary Care Provider Active Start: September 21, 2024 Nikia JAVIER MD Attending Provider Active Start: September 21, 2024 Team Status: Active Member Role/Relationship Status Dates Dr. Michael Snowden MD Primary Care Provider Active Start: September 28, 2024 Audra JAVIER MUTUEL TELLER-C Attending Provider Active Start: September 28, 2024 Team Status: Inactive Member Role/Relationship Status Dates Dr. Michael Snowden MD Primary Care Provider Active Start: October 13, 2024 End: October 13, 2024 Audra Drake NP MUTUEL TELLER-C Attending Provider Active Start: October 13, 2024 End: October 13, 2024 Team Status: Active Member Role/Relationship Status Dates Dr. Michael Snowden MD Primary Care Provider Active Start: October 14, 2024 Nikia JAVIER MD Attending Provider Active Start: October 14, 2024 Team Status: Active Member Role/Relationship Status Dates Dr. Michael Snowden MD Primary Care Provider Active Start: November 02, 2024 Audra JAVIER NP-C Attending Provider Active Start: November 02, 2024 Team Status: Inactive Member Role/Relationship Status Dates Dr. Michael Snowden MD Primary Care Provider Active Start: November 02, 2024 End: November 02, 2024 Dr. Michael Snowden MD Referring Provider Active Start: November 02, 2024 End: November 02, 2024 Mari Medina NP, MUTUEL TELLER-C Attending Provider Active Start: November 02, 2024 End: November 02, 2024 Team Status: Inactive Member Role/Relationship Status Dates Dr. Michael Snowden MD Primary Care Provider Active Start: September 28, 2024 End: September 28, 2024 Dr. Nikia Henderson MD Attending Provider Active Start: September 28, 2024 End: September 28, 2024 Team Status: Inactive Member Role/Relationship Status Dates Dr. Michael Snowedn MD Primary Care Provider Active Start: October 13, 2024 End: October 13, 2024 Audra Drake NP, MUTUEL TELLER-C Attending Provider Active Start: October 13, 2024 End: October 13, 2024 Forest Nursery Supervisor Relationship Specialty Start Date End Date Michael Snowden Chi PCP - General Gerontology 09/05/17 Forest Nursery Supervisor Relationship Specialty Start Date End Date Michael Snowden Chi PCP - General Gerontology 09/05/17 Forest Nursery Supervisor Relationship Specialty Start Date End Date Michael Snowden Chi PCP - General Gerontology 09/05/17 Source Comments (unrecognize d section and content) In the event this informatio n is protected by the Federal Confidentiality of Alcohol and Drug Abuse Patient Records regulations: The Federal rules restrict any use of the information to criminally investigate or prosecute any alcohol or drug abuse patient.[facility] the event this information is protected by the Federal Confidentiality of Alcohol and Drug Abuse Patient Records regulations: The Federal rules restrict any use of the information to criminally investigate or prosecute any alcohol or drug abuse patient.[facility] the event this information is protected by the Federal Confidentiality of Alcohol and Drug Abuse Patient Records regulations: The Federal rules restrict any use of the information to criminally investigate or prosecute any alcohol or drug abuse patient.[facility] the event this information is protected by the Federal Confidentiality of Alcohol and Drug Abuse Patient Records regulations: The Federal rules restrict any use of the information to criminally investigate or prosecute any alcohol or drug abuse patient.[facility] the event this information is protected by the Federal Confidentiality of Alcohol and Drug Abuse Patient Records regulations: The Federal rules restrict any use of the information to criminally investigate or prosecute any alcohol or drug abuse patient.[facility] the event this information is protected by the Federal Confidentiality of Alcohol and Drug Abuse Patient Records regulations: The Federal rules restrict any use of the information to criminally investigate or prosecute any alcohol or drug abuse patient.[facility] the event this information is protected by the Federal Confidentiality of Alcohol and Drug Abuse Patient Records regulations: The Federal rules restrict any use of the information to criminally investigate or prosecute any alcohol or drug abuse patient.[facility] the event this information is protected by the Federal Confidentiality of Alcohol and Drug Abuse Patient Records regulations: The Federal rules restrict any use of the information to criminally investigate or prosecute any alcohol or drug abuse patient.[facility] the event this information is protected by the Federal Confidentiality of Alcohol and Drug Abuse Patient Records regulations: The Federal rules restrict any use of the information to criminally investigate or prosecute any alcohol or drug abuse patient.[facility] Reason for Visit (unrecogniz ed section and content) Reason Comments New Patient Reason Comments Established Patient Reason Comments Medication Preauthorization Evenity 210m g- Denied Reason Comments Osteoporosis Reason Comments Prior Authorization Prolia Reason Comments Appointment INFORMATION SOURCE (unrecogn ized section and content) DATE CREATED AUTHOR 11/24/2024 [facility] DATE CREATED AUTHOR AUTHOR'S VIKY ATION 11/25/2024 [facility] FOR RECORDS PERTAINING TO PATIENTS WHO [...] BE BASED ON THE PRIMARY CLINICAL RECORDS. [facility] [employer] [facility]. provides no warranty or guarantee of the accuracy or completeness of information in this document.
[2024-11-30 08:41] LABS: Hematocrit 38.4 % (37-47); Hemoglobin 12.2 g/dL (12.0-15.0); Immature Granulocytes Count 0.010 X10^3/uL (0.0-0.0); Mean Corp Hgb Conc 31.8 g/dL (32-36); Mean Corpuscular Volume 100.3 fL (81-99); Mean Platelet Vol. 10.0 fl (6.2-12.0); NRBC Flagged by Analyzer 0 % (0-5); Platelet Count 211 K/mm3 (150-450); RBC Distribution Width CV 12.8 % (11.6-14.6); RBC Distribution Width SD 47.1 fl (35.1-43.9); Red Blood Count 3.83 M/mm3 (4.2-5.4); White Blood Count 5.8 K/mm3 (4.4-11.0)
[2024-11-30 08:46] LABS: Anion Gap 9 (5-15); BUN 19 mg/dL (4-19); BUN/Creat Ratio 24.6 RATIO (10-20); Calcium,Total 9.2 mg/dL (7.6-11.0); Carbon Dioxide 27.0 mmol/L (21.0-32.0); Chloride 106 mmol/L (98-108); Glucose 82 mg/dL (70-99); Potassium 4.4 mmol/L (3.3-5.1)
== END ==
LOC: OLS.WHLTCC 04:00
PROVIDERS: PCP Family Medicine Geriatric Medicine; Referring Provider Internal Medicine; Visit Provider Internal Medicine
DX: I10 Essential (primary) hypertension (principal)
CPT/HCPCS: 36415; 80048; 85025

== ENCOUNTER → 2024-12-20 | Outpatient (CLI) | payer MEDICARE, SELFPAY ==
--- NOTE | 2024-12-20 07:10 | ECHOCS_ITS ---
Reason For Study Reason For Study: Murmur Procedure This was a 2D Doppler, Color Flow transthoracic echocardiogram. The study was technically difficult. Contrast injection was performed. Exam performed in department. Left Ventricle Normal LV size. Left ventricular systolic function is normal. The left ventricular ejection fraction is 70 %. Resting LV gradient 5 mmHg. Valsalva LV gradient 82 mmHg. Stage 1 diastolic dysfunction. No regional wall motion abnormalities noted. Right Ventricle Normal RV size. Normal systolic function. Atria Normal left atrium. Normal right atrium. Mitral Valve There is mild mitral annular calcification. Mild (1+) eccentric mitral valve insufficiency. Tricuspid Valve Normal tricuspid valve. Mild (1+) tricuspid valve insufficiency. Pulmonary artery systolic pressure is 35 mmHg. Aortic Valve Trisinus/trileaflet aortic valve. Peak aortic valve gradient 34 mmHg. Mean aortic valve gradient 17 mmHg. Mild (1+) aortic valve insufficiency. Pulmonic Valve Normal pulmonic valve. Great Vessels Normal aortic root. The pulmonary artery is normal size. Inferior vena cava collapse with respiration. Pericardium/Pleural No pericardial effusion. Medication 22 gauge I.V. with prn adaptor inserted into right arm. Diluted definity 1ml given slow IV push to enhance endocardial definition. MMode/2D Measurements & Calculations LVIDd: 4.0 cm IVSd: 0.85 cm LVOT diam: 2.0 cm LVIDs: 2.3 cm LVPWd: 0.90 cm RVDd: 3.2 cm FS: 42.9 % LVOT area: 3.1 cm2 Ao root diam: 4.0 cm LAV(MOD-bp): 30.8 ml LVAd ap4: 29.7 cm2 LAV(MOD-bp) Indexed: 19.4 ml/m2 LVLd ap4: 8.1 cm LAV(MOD-sp2): 31.9 ml EDV(MOD-sp4): 88.9 ml LAV(MOD-sp4): 29.2 ml EDV(sp4-el): 92.6 ml LVAs ap4: 14.6 cm2 LVLs ap4: 6.5 cm ESV(MOD-sp4): 27.8 ml ESV(sp4-el): 28.0 ml EF(MOD-sp4): 68.7 % EF(sp4-el): 69.8 % SV(MOD-sp4): 61.1 ml SV(sp4-el): 64.6 ml LA A4 area: 13.5 cm2 SI(MOD-sp4): 38.5 ml/m2 LA dimension(2D): 3.4 cm TAPSE: 1.8 cm Time Measurements MV dec time: 0.23 sec Doppler Measurements & Calculations MV E max madhu: 73.7 cm/sec Lat Peak E' Madhu: 8.9 cm/sec Med Peak E' Madhu: 3.9 cm/sec MV A max madhu: 109.1 cm/sec E/E' lat: 8.3 E/E' med: 19.0 MV E/A: 0.68 MV V2 max: 116.0 cm/sec MV P1/2t max madhu: 85.4 cm/sec Ao V2 max: 290.7 cm/sec MV max P.4 mmHg MV P1/2t: 79.2 msec Ao max P.9 mmHg MV V2 mean: 57.4 cm/sec Ao V2 mean: 190.6 cm/sec MV mean P.6 mmHg MV dec slope: 315.9 cm/sec2 Ao mean P.0 mmHg MV V2 VTI: 31.6 cm MVA(P1/2t): 2.8 cm2 Ao V2 VTI: 62.3 cm AV (velocity ratio): 0.42 MVA(VTI): 2.6 cm2 ODESSA(I,D): 1.3 cm2 ODESSA(V,D): 1.2 cm2 AI max madhu: 551.7 cm/sec LV V1 max: 108.0 cm/sec SV(LVOT): 82.6 ml AI max P.3 mmHg LV V1 max P.7 mmHg AI dec slope: 322.8 cm/sec2 LV V1 mean P.1 mmHg AI P1/2t: 500.6 msec LV V1 mean: 83.0 cm/sec LV V1 VTI: 26.4 cm TR max madhu: 274.9 cm/sec TR max P.5 mmHg ECHO/Echo Complete W/ Contrast Interpretation Summary Normal LV size. Left ventricular systolic function is normal. The left ventricular ejection fraction is 70 %. Stage 1 diastolic dysfunction. Mild (1+) aortic valve insufficiency. Resting LV gradient 5 mmHg. Valsalva LV gradient 82 mmHg. Contrast injection was performed. Ordering Physician: Mari Medina Referring Physician: Mari Medina Performed By: Goldy Nowak RCS
--- OUTSIDE RECORDS SUMMARY | 2024-12-20 07:15 | XMS RPT_ITS | CCD ---
Author Organization [facility] CliniSynv Care Team Providers Care Dietitian Teaching Name Role Phone Riddhi Espinosa Unavailable Divina [...] Noreen A Unavailable Dana Weldon Unavailable Unavailable Booth Supervisor, System Unavailable Unavailable Sp, Dr. Michael Bates Primary Care Provider Sp, Dr. Michael Bates Referring Provider FriendDr. Quevedo Attending Provider [phone] Sp, Dr. Michael Bates Primary Care Provider Sp, Dr. Michael Bates Referring Provider Sujata GRIFFIN, GABY Galvan Attending Provider Friend, Dr. Quevedo Attending Provider [phone] Sp, Dr. Michael Bates Primary Care Provider Sp, Dr. Michael Bates Referring Provider GABY Vilchis Attending Provider Dr. Michael Snowden Chi Primary Care Provider Sp, Dr. Michael Bates Referring Provider GABY Viclhis Attending Provider Dr. Bret Daniels Attending Provider [...] Rei OROZCO, Dr. Ayon Other Provider Noelle ASSOCIATE BRAND MANAGER-C, Audra Attending Provider Beatriz OROZCO, Dr. Montejo Attending Provider Beatriz OROZCO, Nikia Attending Provider UnavailNikia Richard MD Referring Provider Unavailbi Drake ASSOCIATE BRAND MANAGER-C, Audra Attending Provider Michael Snowden Chi Primary Care Provider [phone] Sp OROZCO, Dr. Michael Bates Primary Care Provider Sp OROZCO, Dr. Michael Bates Attending Provider Sp OROZCO, Dr. Michael Bates Referring Provider Sp OROZCO, Dr. Michael Bates Primary Care Provider Sp OROZCO, Dr. Michael Bates Primary Care Provider [phone] Nikia Henderson MD Attending Provider Unavaila navin Henderson MD, Nikia Referring Provider Unavaila ble Noelle ASSOCIATE BRAND MANAGER-CAudra Attending Provider Sp OROZCO, Dr. Michael Bates Referring Provider Adam TIDWELL-Mari Rodriguez Attending Provider Sp OROZCO, Dr. Michael Bates Primary Care Provider Beatriz OROZCO, Nikia Attending Provider Unavaila ble Noelle ASSOCIATE BRAND MANAGER-CAudra Attending Provider Beatriz OROZCO, Dr. Montejo Attending Provider SETH CHOWDARY Attending Unavailable JOVANNI MATTHEW [...] Unavailable SP, MICHAEL CHI Primary Care Unavailable Oleghe OLS, Efewongbe Attending [...] Sp, Michael Chi Primary Care Unavailable Tickton OLS, Audra Attending Unavailable Sp, Michael Chi Primary Care Unavailable Nikia Flores Attending Unavailabl e Oleghe OLS, Efguanakoongbe Referring Unavailabl e Sp, Michael Chi Primary Care Unavailable Adam TIDWELL, Mari Referring Unavailable Sp, Michael Chi Primary Care Unavailable Adam TIDWELL, Mari Attending Unavailable Sp, Michael Chi Primary Care Unavailable Sp, Michael Chi Attending Unavailable Sp, Michael Chi Referring Unavailable Sp, Michael Chi Primary Care Unavailable Sp, Michael Chi Referring Unavailable Sp, Michael Chi Attending Unavailable Sp, Michael Chi Primary Care Unavailable Floridalma Bingham Attending Unavailable Sp, Michael Chi Primary Care Unavailable Fahad Martinez Attending Unavailable Oleghe Onel JAVIERbe Attending Unavailabl e Sp, Michael Chi Primary Care Unavailable Audra García Attending Unavailable Sp, Michael Chi Primary Care Unavailable Oleghe Onel JAVIERbe Attending Unavailabl e Sp, Michael Chi Primary Care Unavailable Watkins, Lesli Admitting Unavailable Gabo Hernandez Attending Unavailable Basali, Ayman Consulting Unavailable Sp, Michael Chi Primary Care Unavailable Watkins, Lesli Consulting Unavailable Pramoneon Gabo Consulting Unavailable Sp, Michael Chi Primary Care Unavailable Sp, Michael Chi Admitting Unavailable Sp, Michael Chi Attending Unavailable Sp, Michael Chi Referring Unavailable Audra rDake NP Attending Unavailable Sp, Michael Chi Primary Care Unavailable Oleghe Catalina JAVIERongbe Attending Unavailabl e Sp, Michael Chi Primary Care Unavailable Watkins, Lesli Consulting Unavailable Sp, Michael Chi Primary Care Unavailable Watkins, Lesli Admitting Unavailable Chris Watkinsge Attending Unavailable Gabo Hernandez Attending Unavailable Basali, Ayman Consulting Unavailable Sp, Michael Chi Primary Care Unavailable Watkins, Lesli Admitting Unavailable Watkins, Lesli Consulting Unavailable KotsoniRodrigo willisGabo F Consulting Unavailable Sp, Michael Chi Primary Care Unavailable Sae Brandt Attending Unavailable Sp, Michael Chi Referring Unavailable NagajothiManuelapradee Referring Unavailabl e NagBernardo de la cruze Attending Unavailabl e Sp, Michael Chi Primary Care Unavailable Audra Drake NP Attending Unavailable Sp, Michael Chi Primary Care Unavailable Sp, Michael Chi Primary Care Unavailable Tami Caldwell Attending Unavailable Sp, Michael Chi Referring Unavailable Oleghe, Efewongbe Attending Unavailable Sp, Michael Chi Primary Care Unavailable Sp, Michael Chi Primary Care Unavailable Roberte Efewongbe Attending Unavailable Audra Drake NP Attending Unavailable Sp, Michael Chi Primary Care Unavailable Mari Medina NP Attending Unavailable Sp, Michael Chi Primary Care Unavailable Sp, Michael Chi Referring Unavailable Gabo Hernandez Attending Unavailable Aissatou Lieberman Consulting Unavailable Gabo Hernandez Consulting Unavailable Audra García Attending Unavailable Sp, Michael [...] Unavailable Sp, Michael Chi Primary Care Unavailable Allergies Allergy Classification Reported Allergen(s) Allergy Type Date of Onset Reaction(s) Facility (3 sources) alendronate drug allergy 015 GI upset [facility] Work Phone: (3 sources) amLODIPine drug allergy 016 freezes up limbs [facility] Work Phone: (3 sources) atorvastatin drug allergy 016 muscle weakness [facility] Work Phone: (20 sources) codeine; Translations: [CODEINE] drug allergy 009 Intolerance [facility] Work Phone: (20 sources) ibuprofen; Translations: [IBUPROFEN] drug allergy 005 GI Upset [facility] Work Phone: (20 sources) lisinopril; Translations: [LISINOPRIL] drug allergy 012 Swelling, Anaphylaxis [facility] Work Phone: (3 sources) NIFEdipine drug allergy 016 freezes up limbs [facility] Work Phone: (3 sources) HCTZ drug allergy low sodium [facility] Work Phone: (6 sources) NKDA drug allergy 013 [facility] Work Phone: (20 sources) Alendronate; Translations: [ALENDRONATE SODIUM] Drug Allergy GI Upset, Other: See Comments [facility] (20 sources) amLODIPine Drug Allergy Freezes up limbs [facility] (20 sources) atorvastatin; Translations: [ATORVASTATIN] Drug Allergy 016 Intolerance [facility] (20 sources) Doxazosin; Translations: [DOXAZOSIN] Drug Allergy Other: See Comments [facility] Comment on above: VASOVAGAL (20 sources) hydroCHLOROthiazide; Translations: [HYDROCHLOROTHIAZIDE] Drug Allergy Other: See Comments [facility] (20 sources) NIFEdipine; Translations: [NIFEDIPINE] Drug Allergy Other: See Comments [facility] (1 source) HCTA Propensity to adverse reactions Low sodium [facility] Work Phone: (1 source) Ibuprofen Drug Allergy [facility] Work Phone: Comment on above: abd pain (1 source) Codeine/Codeine Derivatives; Translations: [Codeine/Codeine Derivatives] Allergy to substance (finding) [facility] Work Phone: Comment on above: Headache (1 source) Alendronate; Translations: [ALENDRONATE] Drug Allergy [facility] (1 source) Alendronate Drug Allergy [facility] Rep[facility] (1 source) amLODIPine Drug Allergy [facility] (1 source) atorvastatin Drug Allergy [facility] (1 source) Doxazosin Drug Allergy [facility] (1 source) hydroCHLOROthiazide Drug Allergy [facility] (1 source) NIFEdipine Drug Allergy [facility] Repository Medications Current Medications Medication Drug Class(es) Dates Sig (Normalized) Sig (Original) amLODIPine 2.5 mg oral tablet (20 sources) Dihydropyridine Calcium Channel Berenice Start: 04-09-2019 End: 11-02-2024 take 1 tablet [...] One tablet by mouth daily AMLODIPINE BESYLATE [id number] Bret Daniels MD Start: 08-03-2014 End: 08-05-2014 take 1 tablet by mouth once daily NORVASC 2.5 MG TABS One tablet by mouth daily AMLODIPINE BESYLATE [id number] Lyric Murcia RN B Complex-Vitamin C-Folic Acid [...] 05-19-2024 Start: 02-04-2012 [facility] VIT[facility]IN D 2000 UNIT TABS One tablet by mouth twice daily CHOLECALCIFEROL [id number] Bret Daniels MD Start: 02-04-2012 take 2 tablets by mo [facility] once daily VITAMIN D 2000 UNIT TABS Two tablets by mouth daily CHOLECALCIFEROL [id number] Lyric Murcia RN take 1 tablet by [...] 06-07-2015 COMPOUNDED PRE SCRIPTION 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 Dx: Bilat sprained ankles, gait instability. 1 Each 0 06/07/2015 Active 1 ml denosumab 60 mg/ml prefilled syringe (3 sources) RANK Ligand Inhibitor Start: 11-18-2024 End: 12-18-2024 denosumab 60 mg injection (PROLIA) docusate sodium 50 mg / sennosides, snf 8.6 mg oral tablet (20 sources) Start: [...] TABS One tablet by mouth daily CYANOCOBALAMIN [id number] Bret Daniels MD take 1 tablet by [...] tablet by mouth daily B COMPLEX VITAMINS [id number] Bret Daniels MD Start: 05-22-2014 End: 07-14-2018 [...] tablet by mouth daily B COMPLEX VITAMINS [id number] Lyric Murcia RN Start: 02-04-2012 End: 03-08-2015 take 1 tablet by mouth once daily VITAMIN B COMPLEX TABS One tablet by mouth daily B COMPLEX VITAMINS [id number] Ashley Ernst PA-C VITAMIN B COMPLEX ORAL [...] 15, 2016 12:00am July 02, 2017 2:34pm [place] (20 sources) Start: 05-25-2020 End: 02-23-2024 Start: 05-25-2020 End: 02-23-2024 [place] 650 mg tablet Discon tinued mg PO May 25, 2020 1:00am February 23, 2024 1:42pm Start: 05-25-2020 [place] Active MG PO May 25, 2020 12:00am Start: 05-25-2020 [place] Active MG PO May 25, 2020 1:00am Start: 07-02-2017 End: 08-18-2017 Start: 07-02-2017 End: 08-18-2017 take 1 tablet by mouth once daily [place] 650 mg tablet Discontinued 650 mg PO daily July 02, 2017 12:00am August 18, 2017 3:35pm Start: 07-02-2017 End: 08-18-2017 take 650 mg by mouth once daily [place] Discontinued 6 50 MG PO daily July 01, 2017 11:00pm August 18, 2017 2:35pm Start: 07-02-2017 End: 08-18-2017 take 650 mg by mouth once daily [place] Discontinued 6 50 MG PO daily July 02, 2017 12:00am August 18, 2017 3:35pm Start: 02-03-2013 End: 02-10-2014 ALFALFA 650 MG TABS as neede d ALFALFA [id number] GERALD MoranC amoxicillin 500 mg oral caps ule (20 [...] One tablet by mouth daily ASCORBIC ACID [id number] Lyric Murcia RN aspirin 81 mg chewable [...] mouth four times daily as needed ASPIRIN-CAFFEINE [id number] Lyric Murcia RN Start: 08-03-2014 take 2 tablets by mo [facility] four times daily as needed ANACIN 400-32 MG TABS Two tablets by mouth four times daily as needed ASPIRIN-CAFFEINE [id number] Lyric Murcia RN Start: 08-03-2014 take 2 [...] ANACIN 400-32 MG TABS as needed ASPIRIN-CAFFEINE [id number] Elenita Villalobos RN Start: 02-03-2013 End: 02-10-2014 ANACIN 400-32 MG TABS as nee ded ASPIRIN-CAFFEINE [id number] Ashley Ernst PA-C Start: 02-03-2013 End: 02-10-2014 ANACIN 400-32 MG TABS as nee ded ASPIRIN-CAFFEINE Ashley Ernst PA-C Start: 02-03-2013 ANACIN 400-32 MG TABS as needed ASPIRIN-CAFFEINE Elenita Villalobos RN atorvastatin 20 mg oral tablet (6 sources) HMG-CoA Reductase Inhibitor Start: 03-01-2015 End: 04-26-2015 take 1 tablet by mouth once daily ATORVASTATIN CALCIUM 20 MG TABS One tablet by mouth daily ATORVASTATIN CALCIUM [id number] Jessica Smith RN azaTHIOprine 100 mg injection (6 sources) Purine Antimetabolite Start: 03-01-2015 End: 03-08-2015 take 1 tablet by mouth once daily AZASAN 100 MG TABS One tablet by mouth daily AZATHIOPRINE [id number] Lyric Murcia RN biotin (6 sources) Start: 02-04-2012 End: 02-08-2013 take 1 tablet by mouth once daily BIOTIN FORTE TABS One tablet by mouth daily BIOTIN TABS [id number] GERALD MoranC Start: 02-04-2012 take 1 tablet by libby th once daily BIOTIN FORTE TABS One tablet by mouth daily BIOTIN TABS [id number] Bret Daniels MD CALCIUM-MAGNESIUM TABS (3 sources) Start: 02-04-2012 take 2 tablets by mouth once daily THERESE-MAG TABS Two tablets by mouth daily CALCIUM-MAGNESIUM TABS [id number] Bret Daniels MD CATALYN (3 sources) Start: 06-11-2016 take 1 tablet by mouth once daily CATALYN One tablet by mouth daily CATALYN Ashley Ernst, GERALDC chlorthalidone 50 mg oral tablet (20 sources) Thiazide-like Diuretic Start: 10-13-2014 End: 11-07-2014 Start: 10-13-2014 End: 11-07-2014 take 25 mg by mouth once daily Chlorthalidone Disconti nued 25 MG PO DAILY October 13, 2014 12:00am November 07, 2014 6:47pm Start: 08-05-2014 End: 01-23-2015 take 1 tablet by mouth once daily CHLORTHALIDONE 25 MG TABS One half tablet by mouth daily CHLORTHALIDONE [id number] Aimee Davis RN Start: 05-22-2014 End: 05-23-2014 [...] TABS One tablet by mouth daily HYDROCHLOROTHIAZIDE [id number] Bret Daniels MD lactulose 667 mg/ml oral solution (20 sources) Osmotic Laxative Start: 2020 End: 2022 Start: 03-01-2015 LACTULOSE 10 G M/15ML SOLN 30 cc (20 gm) by mouth daily as needed LACTULOSE [id number] Bret Daniels MD Start: 11-14-2014 End: 07-15-2016 [...] RN Active Magnesium (20 sources) Start: End: 5 Magnesium 250 mg tablet Discontinued 400 mg [...] at bedtime 250mg tablets MAGNESIUM OXIDE CAPS [id number] Bret Daniels MD Start: 08-13-2013 MAGNESIUM OXID E CAPS 4 tablets at bedtime MAGNESIUM OXIDE CAPS [id number] Bret Daniels MD melatonin 3 mg oral [...] th twice daily TOPROL XL 25 MG [id number] One tablet by mouth twice daily METOPROLOL SUCCINATE [id number] Bret Daniels MD Start: 02-08-2013 take 1 tablet by libby th twice daily TOPROL XL 25 MG [id number] One tablet by mouth twice daily METOPROLOL SUCCINATE [id number] Lyric Murcia RN Start: 02-08-2013 take 1 tablet by libby th once daily TOPROL XL 25 MG [id number] One tablet by mouth daily METOPROLOL SUCCINATE [id number] Ashley Ernst PA-C Start: 02-08-2013 take 1 tablet by libby th twice daily TOPROL XL 25 MG [id number]-ZNV One tablet by mouth twice daily METOPROLOL SUCCINATE [id number] Bret Daniels MD Start: 02-08-2013 take 1 tablet by libby th once daily TOPROL XL 50 MG [id number] One half tablet by mouth daily METOPROLOL SUCCINATE [id number] Bret Daniels MD Start: 02-08-2013 take 1 tablet by libby th twice daily TOPROL XL 25 MG [id number]-RNF One tablet by mouth twice daily METOPROLOL SUCCINATE [id number] Lyric Murcia RN Start: 02-08-2013 take 1 tablet by libby th once daily TOPROL XL 25 MG [id number]-HTM One tablet by mouth daily METOPROLOL SUCCINATE [id number] Ashley Ernst PA-C Start: 02-04-2012 take 1 tablet by libby th once daily TOPROL XL 50 MG [id number]-[id number] One tablet by mouth daily METOPROLOL SUCCINATE [id number] Bret Daniels MD Start: 02-04-2012 take 1 tablet by libby th once daily TOPROL XL 50 MG [id number]-BIL One tablet by mouth daily METOPROLOL SUCCINATE [id number] Bret Daniels MD Mineral Oil/Petrolatum,White (Eucerin) 1 [...] One tablet by mouth daily MULTIPLE VITAMIN [id number] Bret Daniels MD Faeupopgtpqt-Ob-Nyko- Minerals (13 sources) Start: 02-16-2015 End: 07-02-2017 take 1 tablet by mouth once daily Seuavmpqxaae-Zd-Lnbq-Mine rals Discontinued 1 TABLET PO DAILY February 16, 2015 12:00am July 02, 2017 1:34pm Start: 02-16-2015 End: 07-02-2017 take 1 tablet by mouth once daily Sjdfexrnnkwf-Hr-Yudw-Minerals Discontinu ed 1 TABLET PO DAILY February 16, 2015 1:00am July 02, 2017 2:34pm Nqwwnshadprr-Kh-Nuai-Mineral s 1 EACH tablet (2 sources) Start: 02-16-2015 End: 07-02-2017 take 1 tablet by mouth once daily Meizgqiynqwc-Bz-Esoj-Minerals 1 EACH tablet Discontinued 1 {tbl} PO DAILY February 16, 2015 1:00am July 02, 2017 2:34pm naproxen 250 mg oral tablet (6 sources) Nonster oidal Anti-in flammat ory Drug Start: 08-03-2014 End: 08-05-2014 take 1 tablet by mouth three times daily as needed NAPROXEN 250 MG TABS One tablet by mouth three times daily as needed NAPROXEN [id number] Wilmercharanjit Daniels MD nitrofurantoin, macrocrystal s 25 mg [...] End: 05-31-2024 take 1 capsule by mo [facility] every four hours as needed oxyCODONE [...] One tablet by mouth daily PANTOPRAZOLE SODIUM [id number] Bret Daniels MD Start: 03-01-2015 take 1 tablet by libby twice daily PROTONIX 40 MG TBEC One tablet by mouth twice daily PANTOPRAZOLE SODIUM [id number] Lyric Murcia RN potassium chloride 10 meq ex tended release oral tablet (20 sources) Start: 05-04-2013 End: 11-14-2014 Start: 02-08-2013 End: 03-01-2015 take 1 tablet by mouth once daily KLOR-CON M20 20 MEQ CR-TABS One tablet by mouth daily POTASSIUM CHLORIDE IRMA CR [id number] Lyric Murcia RN Start: 02-08-2013 take 1 tablet by libby th once daily KLOR-CON M20 20 MEQ CR-TABS One tablet by mouth daily POTASSIUM CHLORIDE IRMA CR [id number] Ashley Ernst PA-C Start: 02-08-2013 take 1 tablet by libby th once daily KLOR-CON M20 20 MEQ CR-TABS One tablet by mouth daily POTASSIUM CHLORIDE IRMA CR [id number] Ashley Ernst PA-C Start: 02-08-2013 End: 03-01-2015 take 1 tablet by mouth once daily KLOR-CON M20 20 MEQ CR-TABS One tablet by mouth daily POTASSIUM CHLORIDE IRMA CR [id number] Lyric Murcia RN Start: 08-13-2012 take 1 tablet by libby th twice daily KLOR-CON M20 20 MEQ CR-TABS One tablet by mouth twice daily POTASSIUM CHLORIDE IRMA CR [id number] Lyric Murcia RN Start: 08-13-2012 take 1 tablet by libby th twice daily KLOR-CON M20 20 MEQ CR-TABS One tablet by mouth twice daily POTASSIUM CHLORIDE IRMA CR [id number] Lyric Murcia RN predniSONE 10 mg oral tablet (9 sources) Corticosteroid Start: 03-01-2015 End: 03-08-2015 take 1 tablet by mouth once daily PREDNISONE 10 MG TABS One tablet by mouth daily PREDNISONE [id number] Ashley Ernst PA-C sulfamethoxazole 800 mg / [...] 1:00am May 19, 2024 9:05pm vitamin a 48154 unt oral capsule (20 sources) Vitamin A [...] TABS Three tablets by mouth daily CHOLECALCIFEROL [id number] Bret Daniels MD Start: 02-04-2012 take 3 tablets by mo uth once daily VITAMIN D 1000 UNIT TABS Three tablets by mouth daily CHOLECALCIFEROL [id number] Bret Daniels MD Zypan (15 sources) Start: [...] unspecified; Translations: [Folate deficiency anemia, unspecified] Onset: Episodic E Codes: Fall (11 sources) Fall; [...] Translations: [Abdominal distension (gaseous)] 06-07-2022 Episodic Other injuries and conditions due to [...] cord, unspecified] Onset: 5 04-22-2014 Chronic Other nervous system disorders (1 source) Other symbolic dysfunctions; Translations: [Other symbolic dysfunctions] Onset: 5 Episodic Other nutritional; endocrine; and metabolic disorders (12 [...] conditions (not mental disorders or infectious disease) (17 sources) Patient encounter status; Translations: [Encounter for screening for malignant neoplasm of colon] Onset: 5 10-06-2014 Episodic Other upper respiratory infections (1 source) Chronic sinusitis; Translations: [Sinusitis, chronic] 01-03-2015 Chronic Other upper respiratory infections (2 sources) Acute sinusitis; Translations: [Acute sinusitis] 03-19-2006 Episodic Skin and subcutaneous tissue infections (20 [...] Translations: [Constipation, unspecified] Onset: 5 Episodic Other gastrointestinal disorders (1 source) Functional [...] to excess calories] Resolved: 6 01-25-2016 Chronic Pathological fracture (20 sources) Pathological fracture of [...] Test Name Value Interpretation Reference Range Facility [facility] 11-23-[address] [facility] Telephone (ENWSTR) LIZETTE DAVIES ([id number]) 1945 F Date Time Provider Department 11/23/24 ELZBIETA HERNANDEZ [facility] During your visit today, we recorded the following information about you: Karla Pineda RN 11/23/2024 2:46 PM Signed Call placed to Pt's sister, Anny Espinosa. Notified her that the prior authorization for Prolia was approved by Pt's insurance, and she can schedule the nurse visit with Trinidad valenzuela RN at their convenience. Pt will be brought to the appt by Anny from [facility]; therefore, Anny wants to call back once she touches base with Pt to determine best date/time for Pt to come in for the injection. Dr. eHrnandez already placed CAM order in Pt's chart. [...] mouth once daily. - COMPOUNDED PRESCRIPTION Viki Moe Delo defense 17 drops daily and working up to 60 drops daily (in divided doses). Serving size 30 drops. 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 Normal [facility] LIZETTE DAVIES ([id number]) 1945 F Date Time Provider Department 11/19/[address] [facility] During your visit today, we recorded the following information about you: Karla Pineda RN 11/19/2024 10:25 AM Signed Prior authorization for Prolia submitted to [facility] Cruz: [id number] Karla Pineda RN November 19, 2024 10:25 AM Tami Sun MA 11/19/2024 3:26 PM Signed Fax received Prolia approved pa# [id number] from 11/19/24-03/30/25. Placed in scanned docs. .me [...] supplement - COMPOUNDED PRESCRIPTION 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 Normal [facility] CNOVon 11-18-2024 CNOV Office Visit (ENWSTR ) LIZETTE DAVIES ([id number]) 1945 F Date Time Provider Department 11/18/24 3:00 PM ELZBIETA HERNANDEZ ENW[facility] During your visit today, we recorded the following information about you: Temperature Pulse Respiration Weight 97.6 degrees 92/minute 20/minute 65.8 kg Elzbieta Hernandez MD 11/18/2024 6:10 PM Signed Endocrinology and Metabolism [place] Follow up note NAME: Lizette Davies is [...] using Vitamin D 5000 international unit(s) daily She was prescribed Evenity, which was denied [...] (degenerative disc disease), cervical MRI scanned into [facility] January 11, 2014 ([facility]) DDD (degenerative disc disease), lumbosacral Essential [...] EGD ESOPHAGOGASTRODUODENO SCOPY TRANSORAL DIAGNOSTIC 02/16/[address] [facility] inpt ESOPHAGOGASTRODUODENO SCOPY TRANSORAL DIAGNOSTIC 05/11/15 EGD EXTRACTION, ERUPTED TOOTH OR EXPOSED ROOT (ELEVATION AND/OR FORCEPS REMOVAL) [place] teeth FOOT RIGHT OP SURGERY 01/2009 PAST [...] ptmd Ap (more content not included)... Normal [facility] Absolute lymphocyte countOrd ered By: Audra Drake on 11-02-2024 Lymphocytes Auto (Unsp spec) [#/Vol] 1.50 10*3/uL 0.83-4.51 [facility] Anion gap in Serum or Plasma Ordered By: Audra Drake on 11-02-2024 Anion gap [Moles/Vol] 10 mmol/L 5-15 [facility] Automated lymphocyte count a s percentage of total leukocytesOrdered By: Audra Drake on 11-02-2024 Lymphocytes/100 WBC Auto (Unsp spec) 26.9 % 19-41 [facility] BUN/creatinine ratioOrdered By: Audra Drake on 11-02-2024 Urea nitrogen/Creatinine [Mass ratio] 23.7 mg/mg High 10-20 [facility] Basophil percentageOrdered B y: Audra Drake on 11-02-2024 Basophils/100 WBC (Bld) 0.7 % 0-1 [facility] Bilirubin directOrdered By: Audra Drake on 11-02-2024 Bilirubin.direct [Mass/Vol] 0.12 mg/dL 0.00-0.3 0 [facility] Bilirubin, totalOrdered By: Audra Drake on 11-02-2024 Bilirubin [Mass/Vol] 0.27 mg/dL 0.00-1.[address] [facility] Calculated very low density lipoprotein (VLDL) cholesterol measurementOrdered By: Audra Drake on 11-02-2024 Calculated very low density lipoprotein (VLDL) cholesterol measurement 16 mg/dL 5-40 [facility] Carbon dioxide, total [Moles /volume] in Central venous bloodOrdered By: Audra Drake on 11-02-2024 CO2 [Moles/Vol] 25.8 mmol/L 21.0-32.0 [facility] Cardiology Visit Reporton Cardiology Visit Report Normal [facility] Chloride assayOrdered By: Dimitris Drake on 11-02-2024 Chloride [Moles/Vol] 107 mmol/L 98-[address] [facility] Eosinophil percentageOrdered By: Audra Drake on 11-02-2024 Eosinophils/100 WBC (Bld) 3.9 % 0-5 [facility] Erythrocyte distribution wid th ratioOrdered By: Audra Drake on 11-02-2024 Erythrocyte distribution width (RBC) [Ratio] 12.7 % 11.6-14.6 [facility] Erythrocyte distribution wid th standard deviationOrdered By: Audra Drake on 11-02-2024 Erythrocyte distribution width (RBC) [Ratio] 47.3 fl High 35.1-43.9 [facility] Folate [Mass/volume] in Seru m or PlasmaOrdered By: Audra Drake on 11-02-2024 Folate [Mass/Vol] 10.00 ng/mL 4.60-34.80 [facility] Glomerular filtration rate ( GFR) estimation/1.73 sq m using serum, plasma, or whole bOrdered By: Audra Drake on 11-02-2024 GFR/1.73 sq M.predicted among non-blacks MDRD (S/P/Bld) [Vol rate/Area] 90 mL/min/{1.73_m2} >60 [facility] Hematocrit Auto (Bld) [Volum e fraction]Ordered By: Audra Drake on 11-02-2024 Hematocrit (Bld) [Volume fraction] 37.2 % 37-47 [facility] Hemoglobin measurementOrdere d By: Audra Drake on 11-02-2024 Hemoglobin (Bld) [Mass/Vol] 11.7 g/dL Low 12.0-15. 0 [facility] Immature granulocytes/100 WB C Auto (Bld)Ordered By: Audra Drake on 11-02-2024 Immature granulocytes/100 WBC (Bld) 0.200 % 0.0-0.9 [facility] LDL calc ser/plasOrdered By: Audra Drake on 11-02-2024 Cholesterol in LDL [Mass/Vol] 105 mg/dL [facility] MCV (mean corpuscular volume ) determinationOrdered By: Audra Drake on 11-02-2024 MCV (RBC) [Entitic vol] 101.1 fL High 81-99 [facility] Magnesium measurement (mass/ volume)Ordered By: Audra Drake on 11-02-2024 Magnesium (Unsp spec) [Mass/Vol] 2.1 mg/dL 1.5-2.2 [facility] Mean corpuscular hemoglobin (MCH) determinationOrdered By: Audra Drake on 11-02-2024 MCH (RBC) [Entitic mass] 31.8 pg 27.0-32.0 [facility] Monocyte percentageOrdered B y: Audra Drake on 11-02-2024 Monocytes/100 WBC (Bld) 9.1 % 0-10 [facility] Neutrophil percentageOrdered By: Audra Drake on 11-02-2024 Neutrophils/100 WBC (Bld) 59.2 % 47-70 [facility] No Panel InformationOrdered By: Audra Drake on 11-02-2024 18 U/L <32 [facility] Platelet countOrdered By: Dimitris Drake on 11-02-2024 Platelets (Bld) [#/Vol] 209 10*3/uL 150-450 [facility] Potassium measurement (mass/ volume)Ordered By: Audra Drake on 11-02-2024 Potassium (Unsp spec) [Mass/Vol] 4.0 mmol/L 3.3-5.1 [facility] RBC Auto (Bld) [#/Vol]Ordere d By: Audra Drake on 11-02-2024 RBC (Bld) [#/Vol] 3.68 10*6/uL Low 4.2-5.4 [facility] Serum creatinine measurement (mass/volume)Ordered By: Audra Drake on 11-02-2024 Creatinine [Mass/Vol] 0.63 mg/dL Low 0.70-1.20 [facility] Serum globulin measurementOr dered By: Audra Drake on 11-02-2024 Globulin (S) [Mass/Vol] 2.6 g/dL 2.2-4.2 [facility] Serum glucose measurement (m ass/volume)Ordered By: Audra Drake on 11-02-2024 Glucose [Mass/Vol] 79 mg/dL 70-99 [facility] Serum or plasma alanine kim otransferase (ALT) measurementOrdered By: Audra Drake on 11-02-2024 ALT [Catalytic activity/Vol] 10 U/L <35 [facility] Serum or plasma albumin gianluca urement (mass/volume)Ordered By: Audra Drake on 11-02-2024 Albumin [Mass/Vol] 3.6 g/dL 3.4-4.8 [facility] Serum or plasma alkaline nikole sphatase measurementOrdered By: Audra Drake on 11-02-2024 ALP [Catalytic activity/Vol] 75 U/L 35-104 [facility] Serum or plasma calcium gianluca urement (mass/volume)Ordered By: Audra Drake on 11-02-2024 Calcium [Mass/Vol] 9.1 mg/dL 7.6-11.0 [facility] Serum or plasma cholesterol in HDL measurement (mass/volume)Ordered By: Audra Drake on 11-02-2024 Cholesterol in HDL [Mass/Vol] 54 mg/dL >40 [facility] Serum or plasma cholesterol measurement (mass/volume)Ordered By: Audra Drake on 11-02-2024 Cholesterol [Mass/Vol] 175 mg/dL <201 [facility] Serum or plasma urea nitroge n measurement (mass/volume)Ordered By: Audra Drake on 11-02-2024 Urea nitrogen [Mass/Vol] 15 mg/dL 4-19 [facility] Sodium levelOrdered By: Cony Drake on 11-02-2024 Sodium [Moles/Vol] 142 mmol/L 133-145 [facility] Total proteinOrdered By: Rubin Darke on 11-02-2024 Protein [Mass/Vol] 6.2 g/dL 5.9-8.4 [facility] Vitamin B12 ser/plasOrdered By: Audra Drake on 11-02-2024 Cobalamin (Vitamin B12) [Mass/Vol] 585 pg/mL 180-914 [facility] White blood cell (WBC) count Ordered By: Audra Drake on 11-02-2024 WBC (Bld) [#/Vol] 5.6 10*3/uL 4.4-11.0 [facility] Absolute lymphocyte countOrd ered By: Nikia Henderson on 10-14-2024 Lymphocytes Auto (Unsp spec) [#/Vol] 1.49 10*3/uL 0.83-4.51 [facility] Anion gap in Serum or Plasma Ordered By: Nikia Henderson on 10-14-2024 Anion gap [Moles/Vol] 10 mmol/L 5-15 [facility] Automated lymphocyte count a s percentage of total leukocytesOrdered By: Nikia Henderson on 10-14-2024 Lymphocytes/100 WBC Auto (Unsp spec) 27.8 % 19-41 [facility] BUN/creatinine ratioOrdered By: Nikia Henderson on 10-14-2024 Urea nitrogen/Creatinine [Mass ratio] 20.9 mg/mg High 10-20 [facility] Basophil percentageOrdered B y: Nikia Henderson on 10-14-2024 Basophils/100 WBC (Bld) 0.9 % 0-1 [facility] Bilirubin, totalOrdered By: Nikia Henderson on 10-14-2024 Bilirubin [Mass/Vol] 0.22 mg/dL 0.00-1.[address] [facility] Carbon dioxide, total [Moles /volume] in Central venous bloodOrdered By: Nikia Henderson on 10-14-2024 CO2 [Moles/Vol] 25.5 mmol/L 21.0-32.0 [facility] Chloride assayOrdered By: Cecilia guanakoterra Henderosn on 10-14-2024 Chloride [Moles/Vol] 106 mmol/L 98-[address] [facility] Eosinophil percentageOrdered By: Nikia Henderson on 10-14-2024 Eosinophils/100 WBC (Bld) 3.7 % 0-5 [facility] Erythrocyte distribution wid th ratioOrdered By: Nikia Henderson on 10-14-2024 Erythrocyte distribution width (RBC) [Ratio] 12.8 % 11.6-14.6 [facility] Erythrocyte distribution wid th standard deviationOrdered By: Nikia Henderson on 10-14-2024 Erythrocyte distribution width (RBC) [Ratio] 45.7 fl High 35.1-43.9 [facility] Glomerular filtration rate ( GFR) estimation/1.73 sq m using serum, plasma, or whole bOrdered By: Nikia Henderson on 10-14-2024 GFR/1.73 sq M.predicted among non-blacks MDRD (S/P/Bld) [Vol rate/Area] 87 mL/min/{1.73_m2} >60 [facility] Hematocrit Auto (Bld) [Volum e fraction]Ordered By: Nikia Henderson on 10-14-2024 Hematocrit (Bld) [Volume fraction] 34.6 % Low 37-47 [facility] Hemoglobin measurementOrdere d By: Nikia Henderson on 10-14-2024 Hemoglobin (Bld) [Mass/Vol] 11.3 g/dL Low 12.0-15. 0 [facility] Immature granulocytes/100 WB C Auto (Bld)Ordered By: Nikia Henderson on 10-14-2024 Immature granulocytes/100 WBC (Bld) 0.400 % 0.0-0.9 [facility] MCV (mean corpuscular volume ) determinationOrdered By: Nikia Henderson on 10-14-2024 MCV (RBC) [Entitic vol] 98.6 fL 81-99 [facility] Mean corpuscular hemoglobin (MCH) determinationOrdered By: Nikia Henderson on 10-14-2024 MCH (RBC) [Entitic mass] 32.2 pg High 27.0-32.0 [facility] Monocyte percentageOrdered B y: Nikia Henderson on 10-14-2024 Monocytes/100 WBC (Bld) 9.9 % 0-10 [facility] Natriuretic peptide.B prohor rosie N-Terminal [Mass/volume] in Serum or PlasmaOrdered By: Nikia Henderson on 10-14-2024 Natriuretic peptide.B prohormone N-Terminal [Mass/Vol] 371 pg/mL <1800 [facility] Neutrophil percentageOrdered By: Nikia Henderson on 10-14-2024 Neutrophils/100 WBC (Bld) 57.3 % 47-70 [facility] No Panel InformationOrdered By: Nikia Henderson on 10-14-2024 16 U/L <32 [facility] Platelet countOrdered By: Cecilia Henderson on 10-14-2024 Platelets (Bld) [#/Vol] 223 10*3/uL 150-450 [facility] Potassium measurement (mass/ volume)Ordered By: Nikia Henderson on 10-14-2024 Potassium (Unsp spec) [Mass/Vol] 4.2 mmol/L 3.3-5.1 [facility] RBC Auto (Bld) [#/Vol]Ordere d By: Nikia Henderson on 10-14-2024 RBC (Bld) [#/Vol] 3.51 10*6/uL Low 4.2-5.4 [facility] Serum creatinine measurement (mass/volume)Ordered By: Nikia Henderson on 10-14-2024 Creatinine [Mass/Vol] 0.71 mg/dL 0.70-1.20 [facility] Serum globulin measurementOr dered By: Nikia Henderson on 10-14-2024 Globulin (S) [Mass/Vol] 2.6 g/dL 2.2-4.2 [facility] Serum glucose measurement (m ass/volume)Ordered By: Nikia Henderson on 10-14-2024 Glucose [Mass/Vol] 85 mg/dL 70-99 [facility] Serum or plasma alanine kim otransferase (ALT) measurementOrdered By: Nikia Henderson on 10-14-2024 ALT [Catalytic activity/Vol] 11 U/L <35 [facility] Serum or plasma albumin gianluca urement (mass/volume)Ordered By: Nikia Henderson on 10-14-2024 Albumin [Mass/Vol] 3.4 g/dL 3.4-4.8 [facility] Serum or plasma albumin/glob ulin mass ratioOrdered By: Nikia Henderson 10-14-2024 Albumin/Globulin [Mass ratio] 1.3 {ratio} 0.9-2.4 [facility] Serum or plasma alkaline nikole sphatase measurementOrdered By: Nikia Henderson 10-14-2024 ALP [Catalytic activity/Vol] 79 U/L 35-104 [facility] Serum or plasma calcium gianluca urement (mass/volume)Ordered By: Nikia Henderson 10-14-2024 Calcium [Mass/Vol] 9.0 mg/dL 7.6-11.0 [facility] Serum or plasma urea nitroge n measurement (mass/volume)Ordered By: Nikia Henderson 10-14-2024 Urea nitrogen [Mass/Vol] 15 mg/dL 4-19 [facility] Sodium levelOrdered By: Catalina Henderson on 10-14-2024 Sodium [Moles/Vol] 141 mmol/L 133-145 [facility] Total proteinOrdered By: Marcelo Henderson on 10-14-2024 Protein [Mass/Vol] 6.0 g/dL 5.9-8.4 [facility] White blood cell (WBC) count Ordered By: Nikia Henderson on 10-14-2024 WBC (Bld) [#/Vol] 5.4 10*3/uL 4.4-11.0 [facility] Absolute lymphocyte countOrd ered By: Audra Drake on 09-28-2024 Lymphocytes Auto (Unsp spec) [#/Vol] 1.50 10*3/uL 0.83-4.51 [facility] Anion gap in Serum or Plasma Ordered By: Audra Drake on 09-28-2024 Anion gap [Moles/Vol] 10 mmol/L 5-15 [facility] Automated lymphocyte count a s percentage of total leukocytesOrdered By: Audra Drake on 09-28-2024 Lymphocytes/100 WBC Auto (Unsp spec) 28.4 % 19-41 [facility] BUN/creatinine ratioOrdered By: Audra Drake on 09-28-2024 Urea nitrogen/Creatinine [Mass ratio] 21.1 mg/mg High 10-20 [facility] Basophil percentageOrdered B y: Audra Drake on 09-28-2024 Basophils/100 WBC (Bld) 0.8 % 0-1 [facility] Carbon dioxide, total [Moles /volume] in Central venous bloodOrdered By: Audra Drake on 09-28-2024 CO2 [Moles/Vol] 25.6 mmol/L 21.0-32.0 [facility] Chloride assayOrdered By: Dimitris Drake on 09-28-2024 Chloride [Moles/Vol] 107 mmol/L 98-[address] [facility] Eosinophil percentageOrdered By: Audra Drake on 09-28-2024 Eosinophils/100 WBC (Bld) 3.8 % 0-5 [facility] Erythrocyte distribution wid th ratioOrdered By: Audra Drake on 09-28-2024 Erythrocyte distribution width (RBC) [Ratio] 12.9 % 11.6-14.6 [facility] Erythrocyte distribution wid th standard deviationOrdered By: Audra Drake on 09-28-2024 Erythrocyte distribution width (RBC) [Ratio] 48.7 fl High 35.1-43.9 [facility] Glomerular filtration rate ( GFR) estimation/1.73 sq m using serum, plasma, or whole bOrdered By: Audra Drake on 09-28-2024 GFR/1.73 sq M.predicted among non-blacks MDRD (S/P/Bld) [Vol rate/Area] 91 mL/min/{1.73_m2} >60 [facility] Hematocrit Auto (Bld) [Volum e fraction]Ordered By: Audra Drake on 09-28-2024 Hematocrit (Bld) [Volume fraction] 37.5 % 37-47 [facility] Hemoglobin measurementOrdere d By: Audra Drake on 09-28-2024 Hemoglobin (Bld) [Mass/Vol] 11.9 g/dL Low 12.0-15. 0 [facility] Immature granulocytes/100 WB C Auto (Bld)Ordered By: Audra Drake on 09-28-2024 Immature granulocytes/100 WBC (Bld) 0.400 % 0.0-0.9 [facility] MCV (mean corpuscular volume ) determinationOrdered By: Audra Drake on 09-28-2024 MCV (RBC) [Entitic vol] 102.5 fL High 81-99 [facility] Mean corpuscular hemoglobin (MCH) determinationOrdered By: Audra Drake on 09-28-2024 MCH (RBC) [Entitic mass] 32.5 pg High 27.0-32.0 [facility] Monocyte percentageOrdered B y: Audra Drake on 09-28-2024 Monocytes/100 WBC (Bld) 9.8 % 0-10 [facility] Neutrophil percentageOrdered By: Audra Drake on 09-28-2024 Neutrophils/100 WBC (Bld) 56.8 % 47-70 [facility] Platelet countOrdered By: Dimitris Drake on 09-28-2024 Platelets (Bld) [#/Vol] 209 10*3/uL 150-450 [facility] Potassium measurement (mass/ volume)Ordered By: Audra Drake on 09-28-2024 Potassium (Unsp spec) [Mass/Vol] 4.0 mmol/L 3.3-5.1 [facility] RBC Auto (Bld) [#/Vol]Ordere d By: Aurda Drake on 09-28-2024 RBC (Bld) [#/Vol] 3.66 10*6/uL Low 4.2-5.4 [facility] Serum creatinine measurement (mass/volume)Ordered By: Audra Drake on 09-28-2024 Creatinine [Mass/Vol] 0.61 mg/dL Low 0.70-1.20 [facility] Serum glucose measurement (m ass/volume)Ordered By: Audra Drake on 09-28-2024 Glucose [Mass/Vol] 84 mg/dL 70-99 [facility] Serum or plasma calcium gianluca urement (mass/volume)Ordered By: Audra Drake on 09-28-2024 Calcium [Mass/Vol] 9.1 mg/dL 7.6-11.0 [facility] Serum or plasma urea nitroge n measurement (mass/volume)Ordered By: Audra Drake on 09-28-2024 Urea nitrogen [Mass/Vol] 13 mg/dL 4-19 [facility] Sodium levelOrdered By: Cony Drake on 09-28-2024 Sodium [Moles/Vol] 142 mmol/L 133-145 [facility] White blood cell (WBC) count Ordered By: Audra Drake on 09-28-2024 WBC (Bld) [#/Vol] 5.3 10*3/uL 4.4-11.0 [facility] Absolute lymphocyte countOrd ered By: Nikia Henderson on 09-21-2024 Lymphocytes Auto (Unsp spec) [#/Vol] 1.50 10*3/uL 0.83-4.51 [facility] Anion gap in Serum or Plasma Ordered By: Nikia Henderson on 09-21-2024 Anion gap [Moles/Vol] 9 mmol/L 5-15 [facility] Automated lymphocyte count a s percentage of total leukocytesOrdered By: Nikia Henderson on 09-21-2024 Lymphocytes/100 WBC Auto (Unsp spec) 28.4 % 19-41 [facility] BUN/creatinine ratioOrdered By: Catalinafedeheladio Jainjanicevioletta on 09-21-2024 Urea nitrogen/Creatinine [Mass ratio] 19.5 mg/mg 10-20 [facility] Basophil percentageOrdered B y: Nikia Henderson on 09-21-2024 Basophils/100 WBC (Bld) 0.8 % 0-1 [facility] Carbon dioxide, total [Moles /volume] in Central venous bloodOrdered By: Cecilialaura Jainjanicevioletta on 09-21-2024 CO2 [Moles/Vol] 27.0 mmol/L 21.0-32.0 [facility] Chloride assayOrdered By: Cecilia kelleeheladio Jainjanicevioletta on 09-21-2024 Chloride [Moles/Vol] 106 mmol/L 98-[address] [facility] Eosinophil percentageOrdered By: Ceciliaguanakoterra Cristobaljanicevioletta on 09-21-2024 Eosinophils/100 WBC (Bld) 3.2 % 0-5 [facility] Erythrocyte distribution wid th ratioOrdered By: Ceciliaguanakoterra Cristobaljanicevioletta on 09-21-2024 Erythrocyte distribution width (RBC) [Ratio] 12.8 % 11.6-14.6 [facility] Erythrocyte distribution wid th standard deviationOrdered By: guanakocascadeheladio Jainjanicevioletta on 09-21-2024 Erythrocyte distribution width (RBC) [Ratio] 47.9 fl High 35.1-43.9 [facility] Glomerular filtration rate ( GFR) estimation/1.73 sq m using serum, plasma, or whole bOrdered By: Nikia Jainjanicevioletta on 09-21-2024 GFR/1.73 sq M.predicted among non-blacks MDRD (S/P/Bld) [Vol rate/Area] 91 mL/min/{1.73_m2} >60 [facility] Hematocrit Auto (Bld) [Volum e fraction]Ordered By: Nikia Henderson on 09-21-2024 Hematocrit (Bld) [Volume fraction] 35.6 % Low 37-47 [facility] Hemoglobin measurementOrdere d By: Nikia Henderson on 09-21-2024 Hemoglobin (Bld) [Mass/Vol] 11.5 g/dL Low 12.0-15. 0 [facility] Immature granulocytes/100 WB C Auto (Bld)Ordered By: Nikia Henderson on 09-21-2024 Immature granulocytes/100 WBC (Bld) 0.400 % 0.0-0.9 [facility] MCV (mean corpuscular volume ) determinationOrdered By: Nikia Henderson on 09-21-2024 MCV (RBC) [Entitic vol] 102.0 fL High 81-99 [facility] Mean corpuscular hemoglobin (MCH) determinationOrdered By: Nikia Henderson on 09-21-2024 MCH (RBC) [Entitic mass] 33.0 pg High 27.0-32.0 [facility] Monocyte percentageOrdered B y: Nikia Henderson on 09-21-2024 Monocytes/100 WBC (Bld) 9.1 % 0-10 [facility] Neutrophil percentageOrdered By: Nikia Henderson on 09-21-2024 Neutrophils/100 WBC (Bld) 58.1 % 47-70 [facility] Platelet countOrdered By: Cecilia guanakoterra Henderson on 09-21-2024 Platelets (Bld) [#/Vol] 233 10*3/uL 150-450 [facility] Potassium measurement (mass/ volume)Ordered By: Nikia Henderson on 09-21-2024 Potassium (Unsp spec) [Mass/Vol] 3.9 mmol/L 3.3-5.1 [facility] RBC Auto (Bld) [#/Vol]Ordere d By: Nikia Henderson on 09-21-2024 RBC (Bld) [#/Vol] 3.49 10*6/uL Low 4.2-5.4 [facility] Serum creatinine measurement (mass/volume)Ordered By: Nikia Hnederson on 09-21-2024 Creatinine [Mass/Vol] 0.62 mg/dL Low 0.70-1.20 [facility] Serum glucose measurement (m ass/volume)Ordered By: Nikia Henderson on 09-21-2024 Glucose [Mass/Vol] 87 mg/dL 70-99 [facility] Serum or plasma calcium gianluca urement (mass/volume)Ordered By: Nikia Henderson on 09-21-2024 Calcium [Mass/Vol] 9.2 mg/dL 7.6-11.0 [facility] Serum or plasma urea nitroge n measurement (mass/volume)Ordered By: Ceciliaguanakoterra Cristobaljanicevioletta on 09-21-2024 Urea nitrogen [Mass/Vol] 12 mg/dL 4-19 [facility] Sodium levelOrdered By: Ceciliaguanako terra Cristobaljanicevioletta on 09-21-2024 Sodium [Moles/Vol] 142 mmol/L 133-145 [facility] White blood cell (WBC) count Ordered By: Ceciliaguanakoterra Cristobaljanicevioletta on 09-21-2024 WBC (Bld) [#/Vol] 5.3 10*3/uL 4.4-11.0 [facility] Absolute lymphocyte countOrd ered By: Ceciliaguanakoterra Cristobalromi on 09-14-2024 Lymphocytes Auto (Unsp spec) [#/Vol] 1.52 10*3/uL 0.83-4.51 [facility] Anion gap in Serum or Plasma Ordered By: Catalinafedeheladio Jainjanicevioletta on 09-14-2024 Anion gap [Moles/Vol] 10 mmol/L 5-15 [facility] Automated lymphocyte count a s percentage of total leukocytesOrdered By: Ceciliaguanakoterra Cristobaljanicevioletta on 09-14-2024 Lymphocytes/100 WBC Auto (Unsp spec) 28.4 % 19-41 [facility] BUN/creatinine ratioOrdered By: Ceciliaguanakofedeheladio Jainjanicevioletta on 09-14-2024 Urea nitrogen/Creatinine [Mass ratio] 20.5 mg/mg High 10-20 [facility] Basophil percentageOrdered B y: Nikia Cristobaljanicevioletta on 09-14-2024 Basophils/100 WBC (Bld) 0.9 % 0-1 [facility] Carbon dioxide, total [Moles /volume] in Central venous bloodOrdered By: Ceciliaguanakofedeheladio Jainjanicevioletta on 09-14-2024 CO2 [Moles/Vol] 24.5 mmol/L 21.0-32.0 [facility] Chloride assayOrdered By: Cecilia guanakoterra Henderson on 09-14-2024 Chloride [Moles/Vol] 106 mmol/L 98-[address] [facility] Eosinophil percentageOrdered By: Nikia Henderson on 09-14-2024 Eosinophils/100 WBC (Bld) 3.9 % 0-5 [facility] Erythrocyte distribution wid th ratioOrdered By: guanakocascadeheladio Henderson on 09-14-2024 Erythrocyte distribution width (RBC) [Ratio] 13.1 % 11.6-14.6 [facility] Erythrocyte distribution wid th standard deviationOrdered By: guanakocascadeheladio Henderson on 09-14-2024 Erythrocyte distribution width (RBC) [Ratio] 49.0 fl High 35.1-43.9 [facility] Glomerular filtration rate ( GFR) estimation/1.73 sq m using serum, plasma, or whole bOrdered By: guanakocascadeheladio Henderson on 09-14-2024 GFR/1.73 sq M.predicted among non-blacks MDRD (S/P/Bld) [Vol rate/Area] 92 mL/min/{1.73_m2} >60 [facility] Hematocrit Auto (Bld) [Volum e fraction]Ordered By: Nikia Henderson on 09-14-2024 Hematocrit (Bld) [Volume fraction] 34.7 % Low 37-47 [facility] Hemoglobin measurementOrdere d By: Catalinacascadeheladio Henderson on 09-14-2024 Hemoglobin (Bld) [Mass/Vol] 11.3 g/dL Low 12.0-15. 0 [facility] Immature granulocytes/100 WB C Auto (Bld)Ordered By: Nikia Henderson on 09-14-2024 Immature granulocytes/100 WBC (Bld) 0.200 % 0.0-0.9 [facility] MCV (mean corpuscular volume ) determinationOrdered By: Nikia Henderson on 09-14-2024 MCV (RBC) [Entitic vol] 101.8 fL High 81-99 [facility] Mean corpuscular hemoglobin (MCH) determinationOrdered By: guanakocascadeheladio Henderson on 09-14-2024 MCH (RBC) [Entitic mass] 33.1 pg High 27.0-32.0 [facility] Monocyte percentageOrdered B y: Nikia Henderson on 09-14-2024 Monocytes/100 WBC (Bld) 9.7 % 0-10 [facility] Neutrophil percentageOrdered By: Nikia Henderson on 09-14-2024 Neutrophils/100 WBC (Bld) 56.9 % 47-70 [facility] Platelet countOrdered By: Cecilia Henderson on 09-14-2024 Platelets (Bld) [#/Vol] 216 10*3/uL 150-450 [facility] Potassium measurement (mass/ volume)Ordered By: Nikia Henderson on 09-14-2024 Potassium (Unsp spec) [Mass/Vol] 4.0 mmol/L 3.3-5.1 [facility] RBC Auto (Bld) [#/Vol]Ordere d By: Nikia Henderson on 09-14-2024 RBC (Bld) [#/Vol] 3.41 10*6/uL Low 4.2-5.4 [facility] Serum creatinine measurement (mass/volume)Ordered By: Nikia Henderson on 09-14-2024 Creatinine [Mass/Vol] 0.60 mg/dL Low 0.70-1.20 [facility] Serum glucose measurement (m ass/volume)Ordered By: Nikia Henderson on 09-14-2024 Glucose [Mass/Vol] 77 mg/dL 70-99 [facility] Serum or plasma calcium gianluca urement (mass/volume)Ordered By: Nikia Henderson on 09-14-2024 Calcium [Mass/Vol] 9.0 mg/dL 7.6-11.0 [facility] Serum or plasma urea nitroge n measurement (mass/volume)Ordered By: Nikia Henderson on 09-14-2024 Urea nitrogen [Mass/Vol] 12 mg/dL 4-19 [facility] Sodium levelOrdered By: Catalina Henderson on 09-14-2024 Sodium [Moles/Vol] 140 mmol/L 133-145 [facility] White blood cell (WBC) count Ordered By: Nikia Henderson on 09-14-2024 WBC (Bld) [#/Vol] 5.4 10*3/uL 4.4-11.0 [facility] Absolute lymphocyte countOrd ered By: Nikia Henderson on 09-07-2024 Lymphocytes Auto (Unsp spec) [#/Vol] 1.52 10*3/uL 0.83-4.51 [facility] Anion gap in Serum or Plasma Ordered By: Nikia Henderson on 09-07-2024 Anion gap [Moles/Vol] 9 mmol/L 5- [facility] Automated lymphocyte count a s percentage of total leukocytesOrdered By: Catalinacascadeheladio Henderson on 09-07-2024 Lymphocytes/100 WBC Auto (Unsp spec) 28.4 % 19- [facility] BUN/creatinine ratioOrdered By: [facility] Cristobalvioletta on 09-07-2024 Urea nitrogen/Creatinine [Mass ratio] 23.0 mg/mg High - [facility] Basophil percentageOrdered B y: Nikia Henderson on 09-07-2024 Basophils/100 WBC (Bld) 0.9 % 0-1 [facility] CNPNon 09-07-2024 CNPN Telephone (ENDOMN) LIZETTE DAVIES ([id number]) 1945 F Date Time Provider Department 09/07/24 [...] supplement - COMPOUNDED PRESCRIPTION 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 Normal [facility] Carbon dioxide, total [Moles /volume] in Central venous bloodOrdered By: Nikia Henderson on 09-07-2024 CO2 [Moles/Vol] 25.2 mmol/L 21.0-32.0 [facility] Chloride assayOrdered By: Cecilia Henderson on 09-07-2024 Chloride [Moles/Vol] 108 mmol/L 98-[address] [facility] Eosinophil percentageOrdered By: Nikia Henderson on 09-07-2024 Eosinophils/100 WBC (Bld) 2.8 % 0-5 [facility] Erythrocyte distribution wid th ratioOrdered By: Nikia Henderson on 09-07-2024 Erythrocyte distribution width (RBC) [Ratio] 13.0 % 11.6-14.6 [facility] Erythrocyte distribution wid th standard deviationOrdered By: Nikia Henderson on 09-07-2024 Erythrocyte distribution width (RBC) [Ratio] 48.7 fl High 35.1-43.9 [facility] Glomerular filtration rate ( GFR) estimation/1.73 sq m using serum, plasma, or whole bOrdered By: Nikia Henderson on 09-07-2024 GFR/1.73 sq M.predicted among non-blacks MDRD (S/P/Bld) [Vol rate/Area] 87 mL/min/{1.73_m2} >60 [facility] Hematocrit Auto (Bld) [Volum e fraction]Ordered By: Nikia Jonesvioletta on 09-07-2024 Hematocrit (Bld) [Volume fraction] 34.3 % Low 37-47 [facility] Hemoglobin measurementOrdere d By: Nikia Henderson on 09-07-2024 Hemoglobin (Bld) [Mass/Vol] 11.1 g/dL Low 12.0-15. 0 [facility] Immature granulocytes/100 WB C Auto (Bld)Ordered By: Ceciliaguanakoterra Cristobaljanicevioletta on 09-07-2024 Immature granulocytes/100 WBC (Bld) 0.200 % 0.0-0.9 [facility] MCV (mean corpuscular volume ) determinationOrdered By: Nikia Cristobaljanicevioletta on 09-07-2024 MCV (RBC) [Entitic vol] 101.2 fL High 81-99 [facility] Mean corpuscular hemoglobin (MCH) determinationOrdered By: Ceciliaguanakoterra Jonesvioletta on 09-07-2024 MCH (RBC) [Entitic mass] 32.7 pg High 27.0-32.0 [facility] Monocyte percentageOrdered B y: Nikia Henderson on 09-07-2024 Monocytes/100 WBC (Bld) 10.4 % High 0-10 [facility] Neutrophil percentageOrdered By: Ceciliaguanakoterra Cristobaljanicevioletta on 09-07-2024 Neutrophils/100 WBC (Bld) 57.3 % 47-70 [facility] Platelet countOrdered By: Cecilia Henderson on 09-07-2024 Platelets (Bld) [#/Vol] 203 10*3/uL 150-450 [facility] Potassium measurement (mass/ volume)Ordered By: Nikia Henderson on 09-07-2024 Potassium (Unsp spec) [Mass/Vol] 4.1 mmol/L 3.3-5.1 [facility] RBC Auto (Bld) [#/Vol]Ordere d By: Nikia Cristobalromi on 09-07-2024 RBC (Bld) [#/Vol] 3.39 10*6/uL Low 4.2-5.4 [facility] Serum creatinine measurement (mass/volume)Ordered By: Nikia Henderson on 09-07-2024 Creatinine [Mass/Vol] 0.71 mg/dL 0.70-1.20 [facility] Serum glucose measurement (m ass/volume)Ordered By: Nikia Henderson on 09-07-2024 Glucose [Mass/Vol] 87 mg/dL 70-99 [facility] Serum or plasma calcium gianluca urement (mass/volume)Ordered By: Nikia Henderson on 09-07-2024 Calcium [Mass/Vol] 8.9 mg/dL 7.6-11.0 [facility] Serum or plasma urea nitroge n measurement (mass/volume)Ordered By: Nikia Henderson on 09-07-2024 Urea nitrogen [Mass/Vol] 16 mg/dL 4-19 [facility] Sodium levelOrdered By: Catalina connerling Beatriz on 09-07-2024 Sodium [Moles/Vol] 142 mmol/L 133-145 [facility] White blood cell (WBC) count Ordered By: Nikia Henderson on 09-07-2024 WBC (Bld) [#/Vol] 5.4 10*3/uL 4.4-11.0 [facility] Absolute lymphocyte countOrd ered By: Audar Drake on 08-31-2024 Lymphocytes Auto (Unsp spec) [#/Vol] 1.73 10*3/uL 0.83-4.51 [facility] Anion gap in Serum or Plasma Ordered By: Audra Drake on 08-31-2024 Anion gap [Moles/Vol] 10 mmol/L 5-15 [facility] Automated lymphocyte count a s percentage of total leukocytesOrdered By: Audra Drake on 08-31-2024 Lymphocytes/100 WBC Auto (Unsp spec) 27.5 % -41 [facility] BUN/creatinine ratioOrdered By: Audra Drake on 08-31-2024 Urea nitrogen/Creatinine [Mass ratio] 20.3 mg/mg High 10-20 [facility] Basophil percentageOrdered B y: Audra Drake on 08-31-2024 Basophils/100 WBC (Bld) 0.6 % 0-1 [facility] Carbon dioxide, total [Moles /volume] in Central venous bloodOrdered By: Audra Drake on 08-31-2024 CO2 [Moles/Vol] 24.3 mmol/L 21.0-32.0 [facility] Chloride assayOrdered By: Dimitris Drake on 08-31-2024 Chloride [Moles/Vol] 106 mmol/L 98-[address] [facility] Eosinophil percentageOrdered By: Audra Drake on 08-31-2024 Eosinophils/100 WBC (Bld) 2.4 % 0-5 [facility] Erythrocyte distribution wid th ratioOrdered By: Audra Drake on 08-31-2024 Erythrocyte distribution width (RBC) [Ratio] 13.3 % 11.6-14.6 [facility] Erythrocyte distribution wid th standard deviationOrdered By: Audra Drake on 08-31-2024 Erythrocyte distribution width (RBC) [Ratio] 50.0 fl High 35.1-43.9 [facility] Glomerular filtration rate ( GFR) estimation/1.73 sq m using serum, plasma, or whole bOrdered By: Audra Drake on 08-31-2024 GFR/1.73 sq M.predicted among non-blacks MDRD (S/P/Bld) [Vol rate/Area] 91 mL/min/{1.73_m2} >60 [facility] Hematocrit Auto (Bld) [Volum e fraction]Ordered By: Audra Drake on 08-31-2024 Hematocrit (Bld) [Volume fraction] 34.9 % Low 37-47 [facility] Hemoglobin measurementOrdere d By: Audra Drake on 08-31-2024 Hemoglobin (Bld) [Mass/Vol] 11.0 g/dL Low 12.0-15. 0 [facility] Immature granulocytes/100 WB C Auto (Bld)Ordered By: Audra Drake on 08-31-2024 Immature granulocytes/100 WBC (Bld) 0.500 % 0.0-0.9 [facility] MCV (mean corpuscular volume ) determinationOrdered By: Audra Drake on 08-31-2024 MCV (RBC) [Entitic vol] 101.7 fL High 81-99 [facility] Mean corpuscular hemoglobin (MCH) determinationOrdered By: Audra Drake on 08-31-2024 MCH (RBC) [Entitic mass] 32.1 pg High 27.0-32.0 [facility] Monocyte percentageOrdered B y: Audra Drake on 08-31-2024 Monocytes/100 WBC (Bld) 9.4 % 0-10 [facility] Neutrophil percentageOrdered By: Audra Drake on 08-31-2024 Neutrophils/100 WBC (Bld) 59.6 % 47-70 [facility] Platelet countOrdered By: Dimitris Drake on 08-31-2024 Platelets (Bld) [#/Vol] 208 10*3/uL 150-450 [facility] Potassium measurement (mass/ volume)Ordered By: Audra Drake on 08-31-2024 Potassium (Unsp spec) [Mass/Vol] 4.2 mmol/L 3.3-5.1 [facility] RBC Auto (Bld) [#/Vol]Ordere d By: Audra Drake on 08-31-2024 RBC (Bld) [#/Vol] 3.43 10*6/uL Low 4.2-5.4 [facility] Serum creatinine measurement (mass/volume)Ordered By: Audra Drake on 08-31-2024 Creatinine [Mass/Vol] 0.63 mg/dL Low 0.70-1.20 [facility] Serum glucose measurement (m ass/volume)Ordered By: Audra Drake on 08-31-2024 Glucose [Mass/Vol] 81 mg/dL 70-99 [facility] Serum or plasma calcium gianluca urement (mass/volume)Ordered By: Audra Drake on 08-31-2024 Calcium [Mass/Vol] 8.8 mg/dL 7.6-11.0 [facility] Serum or plasma urea nitroge n measurement (mass/volume)Ordered By: Audra Drake on 08-31-2024 Urea nitrogen [Mass/Vol] 13 mg/dL 4-19 [facility] Sodium levelOrdered By: Cony Drake on 08-31-2024 Sodium [Moles/Vol] 141 mmol/L 133-145 [facility] White blood cell (WBC) count Ordered By: Audra Drake on 08-31-2024 WBC (Bld) [#/Vol] 6.3 10*3/uL 4.4-11.0 [facility] Absolute lymphocyte countOrd ered By: Nikia Henderson on 08-24-2024 Lymphocytes Auto (Unsp spec) [#/Vol] 1.65 10*3/uL 0.83-4.51 [facility] Anion gap in Serum or Plasma Ordered By: Nikia Henderson on 08-24-2024 Anion gap [Moles/Vol] 9 mmol/L 5-15 [facility] Automated lymphocyte count a s percentage of total leukocytesOrdered By: Nikia Henderson on 08-24-2024 Lymphocytes/100 WBC Auto (Unsp spec) 25.9 % 19-41 [facility] BUN/creatinine ratioOrdered By: Nikia Henderson on 08-24-2024 Urea nitrogen/Creatinine [Mass ratio] 20.0 mg/mg 10-20 [facility] Basophil percentageOrdered B y: Nikia Henderson on 08-24-2024 Basophils/100 WBC (Bld) 0.6 % 0-1 [facility] Carbon dioxide, total [Moles /volume] in Central venous bloodOrdered By: Nikia Henderson on 08-24-2024 CO2 [Moles/Vol] 26.4 mmol/L 21.0-32.0 [facility] Chloride assayOrdered By: Cecilia Henderson on 08-24-2024 Chloride [Moles/Vol] 107 mmol/L 98-[address] [facility] Eosinophil percentageOrdered By: Nikia Henderson on 08-24-2024 Eosinophils/100 WBC (Bld) 2.5 % 0-5 [facility] Erythrocyte distribution wid th ratioOrdered By: Nikia Henderson on 08-24-2024 Erythrocyte distribution width (RBC) [Ratio] 13.1 % 11.6-14.6 [facility] Erythrocyte distribution wid th standard deviationOrdered By: Nikia Henderson on 08-24-2024 Erythrocyte distribution width (RBC) [Ratio] 49.5 fl High 35.1-43.9 [facility] Glomerular filtration rate ( GFR) estimation/1.73 sq m using serum, plasma, or whole bOrdered By: Nikia Henderson on 08-24-2024 GFR/1.73 sq M.predicted among non-blacks MDRD (S/P/Bld) [Vol rate/Area] 80 mL/min/{1.73_m2} >60 [facility] Hematocrit Auto (Bld) [Volum e fraction]Ordered By: Nikia Henderson on 08-24-2024 Hematocrit (Bld) [Volume fraction] 36.3 % Low 37-47 [facility] Hemoglobin measurementOrdere d By: Nikia Henderson on 08-24-2024 Hemoglobin (Bld) [Mass/Vol] 11.7 g/dL Low 12.0-15. 0 [facility] Immature granulocytes/100 WB C Auto (Bld)Ordered By: Nikia Henderson on 08-24-2024 Immature granulocytes/100 WBC (Bld) 0.300 % 0.0-0.9 [facility] MCV (mean corpuscular volume ) determinationOrdered By: Nikia Henderson on 08-24-2024 MCV (RBC) [Entitic vol] 102.0 fL High 81-99 [facility] Mean corpuscular hemoglobin (MCH) determinationOrdered By: guanakocascadeheladio Henderson on 08-24-2024 MCH (RBC) [Entitic mass] 32.9 pg High 27.0-32.0 [facility] Monocyte percentageOrdered B y: Nikia Henderson on 08-24-2024 Monocytes/100 WBC (Bld) 10.0 % 0-10 [facility] Neutrophil percentageOrdered By: [facility] Hospital[facility] on 08-24-2024 Neutrophils/100 WBC (Bld) 60.7 % 47-70 [facility] Platelet countOrdered By: Cecilia Henderson on 08-24-2024 Platelets (Bld) [#/Vol] 227 10*3/uL 150-450 [facility] Potassium measurement (mass/ volume)Ordered By: Nikia Henderson on 08-24-2024 Potassium (Unsp spec) [Mass/Vol] 4.1 mmol/L 3.3-5.1 [facility] RBC Auto (Bld) [#/Vol]Ordere d By: Nikia Henderson on 08-24-2024 RBC (Bld) [#/Vol] 3.56 10*6/uL Low 4.2-5.4 [facility] Serum creatinine measurement (mass/volume)Ordered By: Nikia Henderson on 08-24-2024 Creatinine [Mass/Vol] 0.76 mg/dL 0.70-1.20 [facility] Serum glucose measurement (m ass/volume)Ordered By: [facility]iliaadventhealth gordonheladio Cristobalromi on 08-24-2024 Glucose [Mass/Vol] 88 mg/dL 70-99 [facility] Serum or plasma calcium gianluca urement (mass/volume)Ordered By: [facility] on 08-24-2024 Calcium [Mass/Vol] 9.0 mg/dL 7.6-11.0 [facility] Serum or plasma urea nitroge n measurement (mass/volume)Ordered By: Nikia Henderson on 08-24-2024 Urea nitrogen [Mass/Vol] 15 mg/dL 4-19 [facility] Sodium levelOrdered By: Catalina Henderson on 08-24-2024 Sodium [Moles/Vol] 142 mmol/L 133-145 [facility] White blood cell (WBC) count Ordered By: Nikia Henderson on 08-24-2024 WBC (Bld) [#/Vol] 6.4 10*3/uL 4.4-11.0 [facility] CNPNon 08-22-[address] [facility] Telephone (EMQ) LIZETTE DAVIES ([id number]) 1945 F Date Time Provider Department 08/22/24 [...] to the Jorje Chandra Auth Appeals Pool ([id number]). You can find templates listed below to support your appeal in [facility] (Epic drop down, select patient care, select send letter). If it is an urgent request, you can email the GABY Chandra auth Team at [email or web address]. Please make sure the documents below are completed in order to process your request. If the appeal is denied, do you want to schedule a peer to peer Yes/No. We will schedule peer to peer automatically if yes. Thank You, Jorje Chandra Auth Appeals Team Jorje GRIFFIN Appeal letter Jorje GRIFFIN Letter of Medical Necessity Jorje GRIFFIN Clindo Mary Prior [employer] [facility] Endocrin[facility] Met[facility] [place] Letter scanned into chart Allergies As of [...] mouth once daily. - COMPOUNDED PRESCRIPTION Viki Artify It 17 drops daily and working up to 60 drops daily (in divided doses). Serving size 30 drops. 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 Dx: Bilat sprained ankles, gait [...] NOS [K92.2] 03/08/2005 MYALGIA AND MYOSITIS NOS [[id number]] 09/02/2005 CONGENITAL PES PLANUS [Q66.50] 06/29/2007 Tibialis Tendinitis [M76.829] 10/19/2007 Generalized Osteoarthrosis, Unspecified Site [M*04/05/2008 Contact Dermatitis and Other Eczema, due to Uns*04/05/2008 Morbid obesity with BMI of 40.0-44.9, adult (HC* 01/25/2016 Low back pain [M54.50] 12/14/2013 Numbness and tingling in hands [R20.0, R20.2] 12/14/2013 Spinal cord lesion (HCC) [G95.9] 12/14/2013 Neck pain [M54.2] (more content not included)... Normal [facility] Absolute lymphocyte countOrd ered By: Nikia Henderson on 08-17-2024 Lymphocytes Auto (Unsp spec) [#/Vol] 1.53 10*3/uL 0.83-4.51 [facility] Anion gap in Serum or Plasma Ordered By: Nikia Henderson on 08-17-2024 Anion gap [Moles/Vol] 10 mmol/L 08-12 [facility] Automated lymphocyte count a s percentage of total leukocytesOrdered By: Nikia Henderson on 08-17-2024 Lymphocytes/100 WBC Auto (Unsp spec) 26.2 % - [facility] BUN/creatinine ratioOrdered By: Nikia Henderson on 08-17-2024 Urea nitrogen/Creatinine [Mass ratio] 20.9 mg/mg High 01-17 [facility] Basophil percentageOrdered B y: Nikia Henderson on 08-17-2024 Basophils/100 WBC (Bld) 0.9 % 0-1 [facility] Carbon dioxide, total [Moles /volume] in Central venous bloodOrdered By: Nikia Henderson on 08-17-2024 CO2 [Moles/Vol] 26.8 mmol/L 21.0-32.0 [facility] Chloride assayOrdered By: Cecilia Henderson on 08-17-2024 Chloride [Moles/Vol] 106 mmol/L 98-[address] [facility] Eosinophil percentageOrdered By: Nikia Henderson on 08-17-2024 Eosinophils/100 WBC (Bld) 2.1 % 0-5 [facility] Erythrocyte distribution wid th ratioOrdered By: laura Henderson on 08-17-2024 Erythrocyte distribution width (RBC) [Ratio] 13.4 % 11.6-14.6 [facility] Erythrocyte distribution wid th standard deviationOrdered By: Nikia Henderson on 08-17-2024 Erythrocyte distribution width (RBC) [Ratio] 50.2 fl High 35.1-43.9 [facility] Glomerular filtration rate ( GFR) estimation/1.73 sq m using serum, plasma, or whole bOrdered By: Nikia Henderson on 08-17-2024 GFR/1.73 sq M.predicted among non-blacks MDRD (S/P/Bld) [Vol rate/Area] 90 mL/min/{1.73_m2} >60 [facility] Hematocrit Auto (Bld) [Volum e fraction]Ordered By: Nikia Henderson on 08-17-2024 Hematocrit (Bld) [Volume fraction] 34.6 % Low 37-47 [facility] Hemoglobin measurementOrdere d By: Nikia Henderson on 08-17-2024 Hemoglobin (Bld) [Mass/Vol] 11.2 g/dL Low 12.0-15. 0 [facility] Immature granulocytes/100 WB C Auto (Bld)Ordered By: Nikia Henderson on 08-17-2024 Immature granulocytes/100 WBC (Bld) 0.500 % 0.0-0.9 [facility] MCV (mean corpuscular volume ) determinationOrdered By: Nikia Henderson on 08-17-2024 MCV (RBC) [Entitic vol] 102.7 fL High 81-99 [facility] Mean corpuscular hemoglobin (MCH) determinationOrdered By: Nikia Henderson on 08-17-2024 MCH (RBC) [Entitic mass] 33.2 pg High 27.0-32.0 [facility] Monocyte percentageOrdered B y: Nikia Henderson on 08-17-2024 Monocytes/100 WBC (Bld) 9.8 % 0-10 [facility] Neutrophil percentageOrdered By: Nikia Henderson on 08-17-2024 Neutrophils/100 WBC (Bld) 60.5 % 47-70 [facility] Platelet countOrdered By: Cecilia kelleeheladio Henderson on 08-17-2024 Platelets (Bld) [#/Vol] 235 10*3/uL 150-450 [facility] Potassium measurement (mass/ volume)Ordered By: Nikia Henderson on 08-17-2024 Potassium (Unsp spec) [Mass/Vol] 3.9 mmol/L 3.3-5.1 [facility] RBC Auto (Bld) [#/Vol]Ordere d By: Catalinafedeheladio Henderson on 08-17-2024 RBC (Bld) [#/Vol] 3.37 10*6/uL Low 4.2-5.4 [facility] Serum creatinine measurement (mass/volume)Ordered By: Nikia Henderson on 08-17-2024 Creatinine [Mass/Vol] 0.66 mg/dL Low 0.70-1.20 [facility] Serum glucose measurement (m ass/volume)Ordered By: Nikia Henderson on 08-17-2024 Glucose [Mass/Vol] 84 mg/dL 70-99 [facility] Serum or plasma calcium gianluca urement (mass/volume)Ordered By: Nikia Henderson on 08-17-2024 Calcium [Mass/Vol] 9.1 mg/dL 7.6-11.0 [facility] Serum or plasma urea nitroge n measurement (mass/volume)Ordered By: Nikia Henderson on 08-17-2024 Urea nitrogen [Mass/Vol] 14 mg/dL 4-19 [facility] Sodium levelOrdered By: Catalina Henderson on 08-17-2024 Sodium [Moles/Vol] 143 mmol/L 133-145 [facility] White blood cell (WBC) count Ordered By: Nikia Henderson on 08-17-2024 WBC (Bld) [#/Vol] 5.8 10*3/uL 4.4-11.0 [facility] CNOVon 08-13-2024 CNOV Office Visit (SPNSMN ) LIZETTE DAVIES ([id number]) 1945 F Date Time Provider Department 08/13/24 8:00 AM [facility] During your visit today, we recorded the following information about you: Pulse Respiration Blood pressure Weight 98/minute 18/minute 148/103 68 kg Height 1.473 m Seth Chowdary MD 08/13/2024 8:45 AM Signed SPINE SURGERY OUTPATIENT CONSULT This is an in-person visit. SERVICE DATE: 08/13/2024 PCP: Michael Snowden MD REFERRING PROVIDER: Jovanni Matthew [id number] [facility] [address] Lizette Davies is a 78 year old [...] walked recently and currently resides in a shelter facility. She does not report bowel or [...] type O+ Compression fracture of thoracic vertebra ([facility]) DDD (degenerative disc disease), cervical MRI scanned into [facility] January 11, 2014 ([facility]) DDD (degenerative disc disease), lumbosacral Essential [...] DIAGNOSTIC 02/16/15 (more content not included)... Normal [facility] Absolute lymphocyte countOrd ered By: Nikia Henderson on 08-10-2024 Lymphocytes Auto (Unsp spec) [#/Vol] 1.61 10*3/uL 0.83-4.51 [facility] Anion gap in Serum or Plasma Ordered By: Nikia Henderson on 08-10-2024 Anion gap [Moles/Vol] 10 mmol/L 5-15 [facility] Automated lymphocyte count a s percentage of total leukocytesOrdered By: Nikia Henderson on 08-10-2024 Lymphocytes/100 WBC Auto (Unsp spec) 28.1 % - [facility] BUN/creatinine ratioOrdered By: Nikia Henderson on 08-10-2024 Urea nitrogen/Creatinine [Mass ratio] 19.5 mg/mg 10-20 [facility] Basophil percentageOrdered B y: Nikia Henderson on 08-10-2024 Basophils/100 WBC (Bld) 0.9 % 0-1 [facility] Carbon dioxide, total [Moles /volume] in Central venous bloodOrdered By: Nikia Henderson on 08-10-2024 CO2 [Moles/Vol] 24.9 mmol/L 21.0-32.0 [facility] Chloride assayOrdered By: Cecilia Henderson on 08-10-2024 Chloride [Moles/Vol] 106 mmol/L 98-[address] [facility] Eosinophil percentageOrdered By: Nikia Henderson 08-10-2024 Eosinophils/100 WBC (Bld) 3.0 % 0-5 [facility] Erythrocyte distribution wid th ratioOrdered By: guanakocascadeheladio Henderson on 08-10-2024 Erythrocyte distribution width (RBC) [Ratio] 13.6 % 11.6-14.6 [facility] Erythrocyte distribution wid th standard deviationOrdered By: guanakocascadeheladio Henderson on 08-10-2024 Erythrocyte distribution width (RBC) [Ratio] 51.5 fl High 35.1-43.9 [facility] Glomerular filtration rate ( GFR) estimation/1.73 sq m using serum, plasma, or whole bOrdered By: Nikia Henderson on 08-10-2024 GFR/1.73 sq M.predicted among non-blacks MDRD (S/P/Bld) [Vol rate/Area] 92 mL/min/{1.73_m2} >60 [facility] Hematocrit Auto (Bld) [Volum e fraction]Ordered By: Nikia Henderson 08-10-2024 Hematocrit (Bld) [Volume fraction] 35.1 % Low 37-47 [facility] Hemoglobin measurementOrdere d By: Nikia Henderson 08-10-2024 Hemoglobin (Bld) [Mass/Vol] 11.3 g/dL Low 12.0-15. 0 [facility] Immature granulocytes/100 WB C Auto (Bld)Ordered By: Nikia Henderson 08-10-2024 Immature granulocytes/100 WBC (Bld) 0.200 % 0.0-0.9 [facility] MCV (mean corpuscular volume ) determinationOrdered By: Nikia Henderson 08-10-2024 MCV (RBC) [Entitic vol] 103.2 fL High 81-99 [facility] Mean corpuscular hemoglobin (MCH) determinationOrdered By: Nikia Henderson on 08-10-2024 MCH (RBC) [Entitic mass] 33.2 pg High 27.0-32.0 [facility] Monocyte percentageOrdered B y: Nikia Henderson on 08-10-2024 Monocytes/100 WBC (Bld) 9.3 % 0-10 [facility] Neutrophil percentageOrdered By: Nikia Henderson on 08-10-2024 Neutrophils/100 WBC (Bld) 58.5 % 47-70 [facility] Platelet countOrdered By: Cecilia Henderson on 08-10-2024 Platelets (Bld) [#/Vol] 233 10*3/uL 150-450 [facility] Potassium measurement (mass/ volume)Ordered By: Nikia Henderson on 08-10-2024 Potassium (Unsp spec) [Mass/Vol] 4.0 mmol/L 3.3-5.1 [facility] RBC Auto (Bld) [#/Vol]Ordere d By: Nikia Henderson on 08-10-2024 RBC (Bld) [#/Vol] 3.40 10*6/uL Low 4.2-5.4 [facility] Serum creatinine measurement (mass/volume)Ordered By: Nikia Henderson on 08-10-2024 Creatinine [Mass/Vol] 0.59 mg/dL Low 0.70-1.20 [facility] Serum glucose measurement (m ass/volume)Ordered By: Nikia Henderson on 08-10-2024 Glucose [Mass/Vol] 80 mg/dL 70-99 [facility] Serum or plasma calcium gianluca urement (mass/volume)Ordered By: Nikia Henderson on 08-10-2024 Calcium [Mass/Vol] 9.0 mg/dL 7.6-11.0 [facility] Serum or plasma urea nitroge n measurement (mass/volume)Ordered By: Nikia Henderson on 08-10-2024 Urea nitrogen [Mass/Vol] 11 mg/dL 4-19 [facility] Sodium levelOrdered By: Catalina terra Beatriz on 08-10-2024 Sodium [Moles/Vol] 141 mmol/L 133-145 [facility] White blood cell (WBC) count Ordered By: Nikia Henderson on 08-10-2024 WBC (Bld) [#/Vol] 5.7 10*3/uL 4.4-11.0 [facility] Absolute lymphocyte countOrd ered By: Audra Drake on 08-03-2024 Lymphocytes Auto (Unsp spec) [#/Vol] 1.37 10*3/uL 0.83-4.51 [facility] Anion gap in Serum or Plasma Ordered By: Audra Drake on 08-03-2024 Anion gap [Moles/Vol] 8 mmol/L 5-15 [facility] Automated lymphocyte count a s percentage of total leukocytesOrdered By: Audra Drake on 08-03-2024 Lymphocytes/100 WBC Auto (Unsp spec) 23.5 % 19-41 [facility] BUN/creatinine ratioOrdered By: Audra Drake on 08-03-2024 Urea nitrogen/Creatinine [Mass ratio] 18.8 mg/mg 10-20 [facility] Basophil percentageOrdered B y: Audra Drake on 08-03-2024 Basophils/100 WBC (Bld) 0.9 % 0-1 [facility] Bilirubin directOrdered By: Audra Drake on 08-03-2024 Bilirubin.direct [Mass/Vol] 0.10 mg/dL 0.00-0.3 0 [facility] Bilirubin, totalOrdered By: Audra Drake on 08-03-2024 Bilirubin [Mass/Vol] 0.17 mg/dL 0.00-1.[address] [facility] Carbon dioxide, total [Moles /volume] in Central venous bloodOrdered By: Audra Drake on 08-03-2024 CO2 [Moles/Vol] 24.9 mmol/L 21.0-32.0 [facility] Chloride assayOrdered By: Dimitris Drake on 08-03-2024 Chloride [Moles/Vol] 107 mmol/L 98-[address] [facility] Eosinophil percentageOrdered By: Audra Drake on 05-06-2025 Eosinophils/100 WBC (Bld) 2.6 % 0-5 [facility] Erythrocyte distribution wid th ratioOrdered By: Audar Drake on 08-03-2024 Erythrocyte distribution width (RBC) [Ratio] 13.9 % 11.6-14.6 [facility] Erythrocyte distribution wid th standard deviationOrdered By: Audra Drake on 08-03-2024 Erythrocyte distribution width (RBC) [Ratio] 52.4 fl High 35.1-43.9 [facility] Folate [Moles/volume] in Ser um or PlasmaOrdered By: Audra Drake on 08-03-2024 Folate [Moles/Vol] 36.80 ng/mL High 4.60-34.80 [facility] Glomerular filtration rate ( GFR) estimation/1.73 sq m using serum, plasma, or whole bOrdered By: Audra Drake on 08-03-2024 GFR/1.73 sq M.predicted among non-blacks MDRD (S/P/Bld) [Vol rate/Area] 87 mL/min/{1.73_m2} >60 [facility] Hematocrit Auto (Bld) [Volum e fraction]Ordered By: Audra Drake on 08-03-2024 Hematocrit (Bld) [Volume fraction] 33.6 % Low 37-47 [facility] Hemoglobin measurementOrdere d By: Audra Drake on 08-03-2024 Hemoglobin (Bld) [Mass/Vol] 11.0 g/dL Low 12.0-15. 0 [facility] Immature granulocytes/100 WB C Auto (Bld)Ordered By: Audra Drake on 08-03-2024 Immature granulocytes/100 WBC (Bld) 0.300 % 0.0-0.9 [facility] MCV (mean corpuscular volume ) determinationOrdered By: Audra Drake on 08-03-2024 MCV (RBC) [Entitic vol] 103.7 fL High 81-99 [facility] Magnesium measurement (mass/ volume)Ordered By: Audra Drake on 08-03-2024 Magnesium (Unsp spec) [Mass/Vol] 2.3 mg/dL High 1.5-2.2 [facility] Mean corpuscular hemoglobin (MCH) determinationOrdered By: Audra Drake on 08-03-2024 MCH (RBC) [Entitic mass] 34.0 pg High 27.0-32.0 [facility] Monocyte percentageOrdered B y: Audra Drake on 08-03-2024 Monocytes/100 WBC (Bld) 10.3 % High 0-10 [facility] Neutrophil percentageOrdered By: Audra Drake on 08-03-2024 Neutrophils/100 WBC (Bld) 62.4 % 47-70 [facility] No Panel InformationOrdered By: Audra Drake on 08-03-2024 21 U/L <32 [facility] Platelet countOrdered By: Dimitris Drake on 08-03-2024 Platelets (Bld) [#/Vol] 243 10*3/uL 150-450 [facility] Potassium measurement (mass/ volume)Ordered By: Audra Drake on 08-03-2024 Potassium (Unsp spec) [Mass/Vol] 4.4 mmol/L 3.3-5.1 [facility] RBC Auto (Bld) [#/Vol]Ordere d By: Audra Drake on 08-03-2024 RBC (Bld) [#/Vol] 3.24 10*6/uL Low 4.2-5.4 [facility] Serum creatinine measurement (mass/volume)Ordered By: Audra Drake on 08-03-2024 Creatinine [Mass/Vol] 0.71 mg/dL 0.70-1.20 [facility] Serum globulin measurementOr dered By: Audra Drake on 08-03-2024 Globulin (S) [Mass/Vol] 3.0 g/dL 2.2-4.2 [facility] Serum glucose measurement (m ass/volume)Ordered By: Audra Drake on 08-03-2024 Glucose [Mass/Vol] 89 mg/dL 70-99 [facility] Serum or plasma alanine kim otransferase (ALT) measurementOrdered By: Audra Drake on 08-03-2024 ALT [Catalytic activity/Vol] 15 U/L <35 [facility] Serum or plasma albumin gianluca urement (mass/volume)Ordered By: Audra Drake on 08-03-2024 Albumin [Mass/Vol] 3.2 g/dL Low 3.4-4.8 [facility] Serum or plasma alkaline nikole sphatase measurementOrdered By: Audra Drake on 08-03-2024 ALP [Catalytic activity/Vol] 85 U/L 35-104 [facility] Serum or plasma calcium gianluca urement (mass/volume)Ordered By: Audra Drake on 08-03-2024 Calcium [Mass/Vol] 8.8 mg/dL 7.6-11.0 [facility] Serum or plasma urea nitroge n measurement (mass/volume)Ordered By: Audra Drake on 08-03-2024 Urea nitrogen [Mass/Vol] 13 mg/dL 4-19 [facility] Sodium levelOrdered By: Cony Drake on 08-03-2024 Sodium [Moles/Vol] 140 mmol/L 133-145 [facility] Total proteinOrdered By: Rubin Drake on 08-03-2024 Protein [Mass/Vol] 6.2 g/dL 5.9-8.4 [facility] Vitamin B12 ser/plasOrdered By: Audra Drake on 08-03-2024 Cobalamin (Vitamin B12) [Mass/Vol] 1509 pg/mL High 180-914 [facility] White blood cell (WBC) count Ordered By: Audra Drake on 08-03-2024 WBC (Bld) [#/Vol] 5.8 10*3/uL 4.4-11.0 [facility] Absolute lymphocyte countOrd ered By: Audra Drake on 07-27-2024 Lymphocytes Auto (Unsp spec) [#/Vol] 1.57 10*3/uL 0.83-4.51 [facility] Anion gap in Serum or Plasma Ordered By: Audra Drake on 07-27-2024 Anion gap [Moles/Vol] 9 mmol/L 5-15 [facility] Automated lymphocyte count a s percentage of total leukocytesOrdered By: Audra Drake on 07-27-2024 Lymphocytes/100 WBC Auto (Unsp spec) 26.8 % 19-41 [facility] BUN/creatinine ratioOrdered By: Audra Drake on 07-27-2024 Urea nitrogen/Creatinine [Mass ratio] 19.1 mg/mg 10-20 [facility] Basophil percentageOrdered B y: Audra Drake on 07-27-2024 Basophils/100 WBC (Bld) 0.7 % 0-1 [facility] Carbon dioxide, total [Moles /volume] in Central venous bloodOrdered By: Audra Drake on 07-27-2024 CO2 [Moles/Vol] 24.8 mmol/L 21.0-32.0 [facility] Chloride assayOrdered By: Dimitris Drake on 07-27-2024 Chloride [Moles/Vol] 106 mmol/L 98-[address] [facility] Eosinophil percentageOrdered By: Audra Drake on 07-27-2024 Eosinophils/100 WBC (Bld) 2.4 % 0-5 [facility] Erythrocyte distribution wid th ratioOrdered By: Audra Drake on 07-27-2024 Erythrocyte distribution width (RBC) [Ratio] 14.1 % 11.6-14.6 [facility] Erythrocyte distribution wid th standard deviationOrdered By: Audra Drake on 07-27-2024 Erythrocyte distribution width (RBC) [Ratio] 53.5 fl High 35.1-43.9 [facility] Glomerular filtration rate ( GFR) estimation/1.73 sq m using serum, plasma, or whole bOrdered By: Audra Drake on 07-27-2024 GFR/1.73 sq M.predicted among non-blacks MDRD (S/P/Bld) [Vol rate/Area] 90 mL/min/{1.73_m2} >60 [facility] Hematocrit Auto (Bld) [Volum e fraction]Ordered By: Audra Drake on 07-27-2024 Hematocrit (Bld) [Volume fraction] 33.1 % Low 37-47 [facility] Hemoglobin measurementOrdere d By: Audra Drake on 07-27-2024 Hemoglobin (Bld) [Mass/Vol] 11.0 g/dL Low 12.0-15. 0 [facility] Immature granulocytes/100 WB C Auto (Bld)Ordered By: Audra Drake on 07-27-2024 Immature granulocytes/100 WBC (Bld) 0.500 % 0.0-0.9 [facility] MCV (mean corpuscular volume ) determinationOrdered By: Audra Drake on 07-27-2024 MCV (RBC) [Entitic vol] 103.4 fL High 81-99 [facility] Mean corpuscular hemoglobin (MCH) determinationOrdered By: Audra Drake on 07-27-2024 MCH (RBC) [Entitic mass] 34.4 pg High 27.0-32.0 [facility] Monocyte percentageOrdered B y: Audra Drake on 07-27-2024 Monocytes/100 WBC (Bld) 10.4 % High 0-10 [facility] Neutrophil percentageOrdered By: Audra Drake on 07-27-2024 Neutrophils/100 WBC (Bld) 59.2 % 47-70 [facility] Platelet countOrdered By: Dimitris Drake on 07-27-2024 Platelets (Bld) [#/Vol] 282 10*3/uL 150-450 [facility] Potassium measurement (mass/ volume)Ordered By: Audra Drake on 07-27-2024 Potassium (Unsp spec) [Mass/Vol] 4.3 mmol/L 3.3-5.1 [facility] RBC Auto (Bld) [#/Vol]Ordere d By: Audra Drake on 07-27-2024 RBC (Bld) [#/Vol] 3.20 10*6/uL Low 4.2-5.4 [facility] Serum creatinine measurement (mass/volume)Ordered By: Audra Drake on 07-27-2024 Creatinine [Mass/Vol] 0.65 mg/dL Low 0.70-1.20 [facility] Serum glucose measurement (m ass/volume)Ordered By: Audra Drake on 07-27-2024 Glucose [Mass/Vol] 90 mg/dL 70-99 [facility] Serum or plasma calcium gianluca urement (mass/volume)Ordered By: Audra Drake on 07-27-2024 Calcium [Mass/Vol] 8.9 mg/dL 7.6-11.0 [facility] Serum or plasma urea nitroge n measurement (mass/volume)Ordered By: Audra Drake on 07-27-2024 Urea nitrogen [Mass/Vol] 12 mg/dL 4-19 [facility] Sodium levelOrdered By: Cony Drake on 07-27-2024 Sodium [Moles/Vol] 140 mmol/L 133-145 [facility] White blood cell (WBC) count Ordered By: Audra Drake on 07-27-2024 WBC (Bld) [#/Vol] 5.9 10*3/uL 4.4-11.0 [facility] CNPNon 07-22-2024 CNPN Telephone (ENDOMN) LIZETTE DAVIES ([id number]) 1945 F Date Time Provider Department 07/22/24 [...] by mouth once daily. - COMPOUNDED PRESCRIPTION [employer] 17 drops daily and working up to 60 drops daily (in divided doses). Serving size 30 drops. 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 Dx: Bilat sprained ankles, gait [...] NOS [K92.2] 03/08/2005 MYALGIA AND MYOSITIS NOS [WSF9119] 09/02/2005 CONGENITAL PES PLANUS [Q66.50] 06/29/2007 Tibialis [...] ML SUBCU (more content not included)... Normal [facility] 1,25-dihydroxyvitamin D3 [Ma ss/Vol]on 07-21-2024 VIT D1,25 DIHYDROXY 34.0 pg/mL Normal 19.9-79.3 [facility] Comment on above: Order Comment: Speci men Type: BLOOD SPECIMENOrdering Facility: [facility] Address: [address] [place] [address] Performed By: #### 1 989-3, 1648-3 ####[facility] LABIA [id number] [place] [address] [place] 25(OH)D3 SerPl-mCncon 2024 25-hydroxyvitamin D3 [Mass/Vol] 65.9 ng/mL Normal 31.0-80.0 [facility] Comment on above: Order Comment: Speci men Type: BLOOD SPECIMENOrdering Facility: [facility] Address: [address] [place] [address] Result Comment: Clas sification of 25 [place] Vitamin D status: Deficiency/Insufficiency: < or = 30 ng/ml. Sufficiency/Optimal Levels: 31-80 ng/mL Toxicity: > 100 ng/mL. Test performed by chemiluminescent immunoassay. Performed By: #### 1 989-3, 9-3 ####[facility] LABIA [id number] [place] [address] [place] CNOVon 07-21-2024 CNOV Office Visit (ENDOMN ) LIZETTE DAVIES ([id number]) 1945 F Date Time Provider Department 07/21/24 3:00 PM AJAY GRANT ENDOMN During your visit today, we recorded the following information about you: Pulse Blood pressure Weight Height 98/minute 109/75 68 kg 1.473 m Bebo Martinez MA 07/21/2024 2:47 PM Signed Thank you for choosing the [facility] Department of Endocrinology, Diabetes and Metabolism. Did you know that you need to call 48 hours in advance of your scheduled visit, if you are unable to make your appointment? [facility] thanks you for your commitment, because patients not showing to their appointment results in a lost opportunity for patients to receive world class health care at the [facility]. To Cancel an appointment, please choose one of the following: - Call the Appointment Call Center at [phone] - From [employer], Go to Appointments - Cancel Appts If cancelling, consider your need to reschedule to prevent further delays in your care. To Schedule an appointment, please choose one of the following: - Call the Appointment Call Center at [phone] - From [employer], Go to Appointments - Request an Appt [...] on 07/21/2024) COMPOUNDED PRESCRIPTION 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 Dx: Bilat sprained ankles, gait instability. acetaminophen (TYLENOL EXTRA STRENGTH) 500 mg tablet Take 1 tablet by mouth every 6 hours as needed for Pain. Magnesium 250 mg tab Take 1,000 mg by mouth. (Patient not taking: Reported on 07/21/2024) MULTIVITAMIN TAB Take one(1) tablet daily. (Patient not taking: Reported on 07/21/2024) No current fa (more content not included)... Normal [facility] CNOV Office Visit (REMS31 ) LIZETTE DAVIES ([id number]) 1945 F Date Time Provider Department 07/21/24 [...] transitional care- ECF - PT stopped at [facility]. Can walk some with walker- [...] (degenerative disc disease), cervical MRI scanned into [facility] January 11, 2014 ([facility]) DDD (degenerative disc disease), lumbosacral Essential [...] EGD ESOPHAGOGASTRODUODENO SCOPY TRANSORAL DIAGNOSTIC 02/16/[address] [facility] inpt ESOPHAGOGASTRODUODENO SCOPY TRANSORAL DIAGNOSTIC 05/11/15 EGD EXTRACTION, ERUPTED TOOTH OR EXPOSED ROOT (ELEVATION AND/OR FORCEPS REMOVAL) 1970s Wi (more content not included)... Normal [facility] Comprehensive metabolic 2000 panelon 07-21-2024 Albumin [Mass/Vol] 3.9 g/dL Normal 3.9-4.9 [facility] Comment on above: Order Comment: Speci men Type: BLOOD SPECIMENOrdering Facility: [facility] Address: [address] [place] [address] Performed By: #### 2 731-8, 34009-5, 3286-3, 2777-1 ####[facility] LABCLIA [id number] [place] [address] [place] ALP [Catalytic activity/Vol] 108 U/L Normal 34-123 [facility] Comment on above: Order Comment: Speci men Type: BLOOD SPECIMENOrdering Facility: [facility] Address: [address] [place] [address] Performed By: #### 2 731-8, 13137-0, 3016-3, 2777-1 ####[facility] LABCLIA [id number] [place] [id number] [place] ALT [Catalytic activity/Vol] 13 U/L Normal 7-38 [facility] Comment on above: Order Comment: Speci men Type: BLOOD SPECIMENOrdering Facility: [facility] Address: [address] [place] [address] Performed By: #### 2 731-8, 92252-1, 3016-3, 2777-1 ####[facility] LABCLIA [id number] [place] [address] [place] Anion gap [Moles/Vol] 14 mmol/L Normal 8-15 [facility] Comment on above: Order Comment: Speci men Type: BLOOD SPECIMENOrdering Facility: [facility] Address: [address] [place] [address] Performed By: #### 2 731-8, 47783-1, 3015-3, 2777-1 ####[facility] LABCLIA [id number] [place] [address] [place] AST [Catalytic activity/Vol] 19 U/L Normal 13-35 [facility] Comment on above: Order Comment: Speci men Type: BLOOD SPECIMENOrdering Facility: [facility] Address: [address] [place] [address] Performed By: #### 2 731-8, 25265-8, 3015-3, 2777-1 ####[facility] LABCLIA [id number] [address] [address] [place] Bilirubin [Mass/Vol] 0.3 mg/dL Normal 0.2-1.3 [facility] Comment on above: Order Comment: Speci men Type: BLOOD SPECIMENOrdering Facility: [facility] Address: [address] [place] [address] Performed By: #### 2 731-8, 24450-1, 6-3, 2777-1 ####[facility] LABCLIA [id number] [facility] [address] [address] [place] Calcium [Mass/Vol] 9.6 mg/dL Normal 8.5-10.2 [facility] Comment on above: Order Comment: Speci men Type: BLOOD SPECIMENOrdering Facility: [facility] Address: [address] [place], [place] [id number] Performed By: #### 2 731-8, 41272-7, 3015-3, 2777- ####[facility] LABIA [id number] [address] [address] [place] Chloride [Moles/Vol] 100 mmol/L Normal 98-107 [facility] Comment on above: Order Comment: Speci men Type: BLOOD SPECIMENOrdering Facility: [facility] Address: [address] [place], [place] [id number] Performed By: #### 2 731-8, 63900-2, 3015-3, 277- ####[facility] LABIA [id number] [address] [address] [place] CO2 [Moles/Vol] 25 mmol/L Normal 22-30 [facility] Comment on above: Order Comment: Speci men Type: BLOOD SPECIMENOrdering Facility: [facility] Address: [address] [place] [address] Performed By: #### 2 731-8, 00037-1, 3015-3, 2777-1 ####[facility] LABCLIA [id number] [facility] [address] [place] [address] [place] Creatinine [Mass/Vol] 0.79 mg/dL Normal 0.58-0.96 [facility] Comment on above: Order Comment: Speci men Type: BLOOD SPECIMENOrdering Facility: [facility] Address: [address] [place] [place] [id number] Performed By: #### 2 731-8, 36906-5, 3016-3, 2777-1 ####[facility] LABIA [id number] [place] [address] [place] Creatinine and Glomerular filtration rate.predicted panel (S/P/Bld) 77 mL/min/1.73m??? Normal >=60 [facility] Comment on above: Order Comment: Iwona willis Type: BLOOD SPECIMENOrdering Facility: [facility] Address: [address] [place] [address] Result Comment: Brigida mated Glomerular Filtration Rate [...] actual GFR. Performed By: #### 2 731-8, 04246-7, 3016-3, 2777-1 ####[facility] LABIA [id number] [place] [id number] [place] Glucose [Mass/Vol] 97 mg/dL Normal 74-99 [facility] Comment on above: Order Comment: Iwona pedro Type: BLOOD SPECIMENOrdering Facility: [facility] Address: [address] [place] [address] Result Comment: The [place] [employer] (ADA) provides guidance for cutoff [...] Standards of Medical Care in Diabetes 2016, [place] [employer]. Diabetes Care. 2016.39(Suppl 1). Performed By: #### 2 731-8, 12758-3, 3015-3, 2776- ####[facility] LABCLIA [id number] [facility] [address] [place] [address] [place] Potassium [Moles/Vol] 5.1 mmol/L Normal 3.7-5.1 [facility] Comment on above: Order Comment: Speci men Type: BLOOD SPECIMENOrdering Facility: [facility] Address: [address] [place] [address] Performed By: #### 2 731-8, 55515-3, 3, 2776- ####[facility] LABCLIA [id number] [facility] [address] [place] [address] [place] Protein [Mass/Vol] 7.0 g/dL Normal 6.3-8.0 [facility] Comment on above: Order Comment: Speci men Type: BLOOD SPECIMENOrdering Facility: [facility] Address: [address] [place], [place] [id number] Performed By: #### 2 731-8, 91559-5, 3, 2776-03 ####[facility] LABCLIA [id number] [address] [place] [address] [place] Sodium [Moles/Vol] 139 mmol/L Normal 136-144 [facility] Comment on above: Order Comment: Speci men Type: BLOOD SPECIMENOrdering Facility: [facility] Address: [address] [place] [address] Performed By: #### 2 731-8, 25334-8, 3, 27709-28 ####[facility] LABCLIA [id number] [facility] [address] [place] [address] [place] Urea nitrogen [Mass/Vol] 14 mg/dL Normal 7-21 [facility] Comment on above: Order Comment: Speci men Type: BLOOD SPECIMENOrdering Facility: [facility] Address: [address] [place] [address] Performed By: #### 2 731-8, 06410-9, 3015-3, 277-1 ####[facility] LABCLIA [id number] [place] [address] [place] PTH-Intact SerPl-mCncon 04- Parathyrin.intact [Mass/Vol] 20 pg/mL Normal 15-65 [facility] Comment on above: Order Comment: Speci men Type: BLOOD SPECIMENOrdering Facility: [facility] Address: [address] [place] [address] Performed By: #### 2 731-8, 64846-2, 3, 2776- ####[facility] LABCLIA [id number] [place] [address] [place] Phosphate SerPl-mCncon 07-21 Phosphate [Mass/Vol] 3.9 mg/dL Normal 2.7-4.8 [facility] Comment on above: Order Comment: Speci men Type: BLOOD SPECIMENOrdering Facility: [facility] Address: [address] [place] [address] Performed By: #### 2 731-8, 27652-7, 3015-3, 277-1 ####[facility] LABCLIA [id number] [place] [address] [place] TSH SerPl-aCncon 07-21-2024 TSH Qn 0.762 m[IU]/L Normal 0.270-4.200 [facility] Comment on above: Order Comment: Speci men Type: BLOOD SPECIMENOrdering Facility: [facility] Address: [address] [place] [address] Performed By: #### 2 731-8, 89467-9, 6-3, 2777-1 ####[facility] LABCLIA [id number] [address] [address] [place] [facility] Absolute lymphocyte countOrd ered By: Nikia Henderson on 07-20-2024 Lymphocytes Auto (Unsp spec) [#/Vol] 1.71 10*3/uL 0.83-4.51 [facility] Anion gap in Serum or Plasma Ordered By: Nikia Henderson on 07-20-2024 Anion gap [Moles/Vol] 10 mmol/L 5-15 [facility] Automated lymphocyte count a s percentage of total leukocytesOrdered By: Nikia Henderson on 07-20-2024 Lymphocytes/100 WBC Auto (Unsp spec) 28.0 % 19-41 [facility] BUN/creatinine ratioOrdered By: Nikia Henderson on 07-20-2024 Urea nitrogen/Creatinine [Mass ratio] 16.1 mg/mg 10-20 [facility] Basophil percentageOrdered B y: Nikia Henderson on 07-20-2024 Basophils/100 WBC (Bld) 0.7 % 0-1 [facility] Carbon dioxide, total [Moles /volume] in Central venous bloodOrdered By: Nikia Henderson on 07-20-2024 CO2 [Moles/Vol] 23.8 mmol/L 21.0-32.0 [facility] Chloride assayOrdered By: Cecilia Henderson on 07-20-2024 Chloride [Moles/Vol] 104 mmol/L 98-[address] [facility] Eosinophil percentageOrdered By: Nikia Henderson on 07-20-2024 Eosinophils/100 WBC (Bld) 2.1 % 0-5 [facility] Erythrocyte distribution wid th ratioOrdered By: Nikia Henderson on 07-20-2024 Erythrocyte distribution width (RBC) [Ratio] 13.7 % 11.6-14.6 [facility] Erythrocyte distribution wid th standard deviationOrdered By: Nikia Henderson on 07-20-2024 Erythrocyte distribution width (RBC) [Ratio] 50.0 fl High 35.1-43.9 [facility] Glomerular filtration rate ( GFR) estimation/1.73 sq m using serum, plasma, or whole bOrdered By: Nikia Henderson on 07-20-2024 GFR/1.73 sq M.predicted among non-blacks MDRD (S/P/Bld) [Vol rate/Area] 92 mL/min/{1.73_m2} >60 [facility] Hematocrit Auto (Bld) [Volum e fraction]Ordered By: Nikia Henderson on 07-20-2024 Hematocrit (Bld) [Volume fraction] 33.5 % Low 37-47 [facility] Hemoglobin measurementOrdere d By: Nikia Henderson on 07-20-2024 Hemoglobin (Bld) [Mass/Vol] 11.3 g/dL Low 12.0-15. 0 [facility] Immature granulocytes/100 WB C Auto (Bld)Ordered By: Nikia Henderson on 07-20-2024 Immature granulocytes/100 WBC (Bld) 0.500 % 0.0-0.9 [facility] MCV (mean corpuscular volume ) determinationOrdered By: Nikia Henderson on 07-20-2024 MCV (RBC) [Entitic vol] 100.0 fL High 81-99 [facility] Mean corpuscular hemoglobin (MCH) determinationOrdered By: Nikia Henderson on 07-20-2024 MCH (RBC) [Entitic mass] 33.7 pg High 27.0-32.0 [facility] Monocyte percentageOrdered B y: Nikia Henderson on 07-20-2024 Monocytes/100 WBC (Bld) 10.2 % High 0-10 [facility] Neutrophil percentageOrdered By: laura Henderson on 07-20-2024 Neutrophils/100 WBC (Bld) 58.5 % 47-70 [facility] Platelet countOrdered By: Cecilia Henderson on 07-20-2024 Platelets (Bld) [#/Vol] 276 10*3/uL 150-450 [facility] Potassium measurement (mass/ volume)Ordered By: Nikia Henderson on 07-20-2024 Potassium (Unsp spec) [Mass/Vol] 4.1 mmol/L 3.3-5.1 [facility] RBC Auto (Bld) [#/Vol]Ordere d By: Nikia Henderson on 07-20-2024 RBC (Bld) [#/Vol] 3.35 10*6/uL Low 4.2-5.4 [facility] Serum creatinine measurement (mass/volume)Ordered By: Nikia Henderson on 07-20-2024 Creatinine [Mass/Vol] 0.59 mg/dL Low 0.70-1.20 [facility] Serum glucose measurement (m ass/volume)Ordered By: Nikia Henderson on 07-20-2024 Glucose [Mass/Vol] 85 mg/dL 70-99 [facility] Serum or plasma calcium gianluca urement (mass/volume)Ordered By: Nikia Henderson on 07-20-2024 Calcium [Mass/Vol] 9.1 mg/dL 7.6-11.0 [facility] Serum or plasma urea nitroge n measurement (mass/volume)Ordered By: Nikia Henderson on 07-20-2024 Urea nitrogen [Mass/Vol] 9 mg/dL 4-19 [facility] Sodium levelOrdered By: Catalina terra Beatriz on 07-20-2024 Sodium [Moles/Vol] 138 mmol/L 133-145 [facility] White blood cell (WBC) count Ordered By: Nikia Henderson on 07-20-2024 WBC (Bld) [#/Vol] 6.1 10*3/uL 4.4-11.0 [facility] Absolute lymphocyte countOrd ered By: Nikia Henderson on 07-13-2024 Lymphocytes Auto (Unsp spec) [#/Vol] 1.48 10*3/uL 0.83-4.51 [facility] Absolute neutrophil countOrd ered By: Nikia Henderson on 07-13-2024 Absolute neutrophil count 3.7 X10^3/uL 2.0-7.7 [facility] Anion gap [Moles/Vol]Ordered By: Nikia Henderson on 07-13-2024 Anion gap in Serum or Plasma 9 5-15 [facility] Anion gap in Serum or Plasma Ordered By: Nikia Henderson on 07-13-2024 Anion gap [Moles/Vol] 9 mmol/L 5- [facility] Automated lymphocyte count a s percentage of total leukocytesOrdered By: Nikia Henderson on 07-13-2024 Lymphocytes/100 WBC Auto (Unsp spec) 24.8 % 19-41 [facility] BUN/creatinine ratioOrdered By: Nikia Henderson on 07-13-2024 Urea nitrogen/Creatinine [Mass ratio] 19.7 mg/mg 10- [facility] BUN/creatinine ratio 19.7 RATIO 10-[address] [facility] Basophil percentageOrdered B y: Nikia Henderson on 07-13-2024 Basophils/100 WBC (Bld) 0.8 % 0-1 [facility] Basophil percentage 0.8 % 0-1 [facility] Calcium [Mass/Vol]Ordered By : Nikia Henderson on 07-13-2024 Serum or plasma calcium measurement (mass/volume) 8.8 mg/dL 7.6-11.0 [facility] Carbon dioxide, total [Moles /volume] in Central venous bloodOrdered By: Nikia Henderson on 07-13-2024 CO2 [Moles/Vol] 24.1 mmol/L 21.0-32.0 [facility] Carbon dioxide, total [Moles/volume] in Central venous blood 24.1 mmol/L 21.0-32.0 [facility] Chloride assayOrdered By: Cecilia Henderson on 07-13-2024 Chloride [Moles/Vol] 108 mmol/L 98-[address] [facility] Chloride assay 108 mmol/L 98-108 [facility] Creatinine [Mass/Vol]Ordered By: Nikia Henderson on 07-13-2024 Serum creatinine measurement (mass/volume) 0.59 mg/dL Low 0.70-1.20 [facility] Eosinophil percentageOrdered By: Nikia Henderson on 07-13-2024 Eosinophils/100 WBC (Bld) 2.9 % 0-5 [facility] Eosinophil percentage 2.9 % 0-5 [facility] Erythrocyte distribution wid th (RBC) [Ratio]Ordered By: Nikia Henderson on 07-13-2024 Erythrocyte distribution width ratio 14.2 % 11.6-14.6 [facility] Erythrocyte distribution width standard deviation 52.8 fl High 35.1-43.9 [facility] Erythrocyte distribution wid th ratioOrdered By: Nikia Henderson on 07-13-2024 Erythrocyte distribution width (RBC) [Ratio] 14.2 % 11.6-14.6 [facility] Erythrocyte distribution wid th standard deviationOrdered By: Nikia Henderson on 07-13-2024 Erythrocyte distribution width (RBC) [Ratio] 52.8 fl High 35.1-43.9 [facility] GFR/1.73 sq M.predicted viji g non-blacks MDRD (S/P/Bld) [Vol rate/Area]Ordered By: Nikia Henderson on 07-13-2024 Glomerular filtration rate (GFR) estimation/1.73 sq m using serum, plasma, or whole b 92 >60 [facility] Glomerular filtration rate ( GFR) estimation/1.73 sq m using serum, plasma, or whole bOrdered By: Nikia Henderson on 07-13-2024 GFR/1.73 sq M.predicted among non-blacks MDRD (S/P/Bld) [Vol rate/Area] 92 mL/min/{1.73_m2} >60 [facility] Glucose [Mass/Vol]Ordered By : Nikia Henderson on 07-13-2024 Serum glucose measurement (mass/volume) 84 mg/dL 70-99 [facility] Hematocrit Auto (Bld) [Volum e fraction]Ordered By: Nikia Henderson on 07-13-2024 Hematocrit (Bld) [Volume fraction] 32.8 % Low 37-47 [facility] Automated blood hematocrit (percentage) 32.8 % Low 37-47 [facility] Hemoglobin measurementOrdere d By: Nikia Henderson on 07-13-2024 Hemoglobin (Bld) [Mass/Vol] 10.8 g/dL Low 12.0-15. 0 [facility] Hemoglobin measurement 10.8 g/dL Low 12.0-15.0 [facility] Immature granulocytes/100 WB C Auto (Bld)Ordered By: Nikia Henderson on 07-13-2024 Immature granulocytes/100 WBC (Bld) 0.700 % 0.0-0.9 [facility] Automated immature granulocyte percentage 0.700 % 0.0-0.9 [facility] Lymphocytes Auto (Unsp spec) [#/Vol]Ordered By: Nikia Henderson on 07-13-2024 Absolute lymphocyte count 1.48 X10^3/uL 0.83-4. 51 [facility] Lymphocytes/100 WBC Auto (Un sp spec)Ordered By: Nikia Henderson on 07-13-2024 Automated lymphocyte count as percentage of total leukocytes 24.8 % 19-41 [facility] MCV (RBC) [Entitic vol]Order ed By: Nikia Henderson on 07-13-2024 MCV (mean corpuscular volume) determination 102.2 fL High 81-99 [facility] MCV (mean corpuscular volume ) determinationOrdered By: Nikia Henderson on 07-13-2024 MCV (RBC) [Entitic vol] 102.2 fL High 81-99 [facility] Mean corpuscular hemoglobin (MCH) determinationOrdered By: guanakocascadeheladio Henderson on 07-13-2024 MCH (RBC) [Entitic mass] 33.6 pg High 27.0-32.0 [facility] Mean corpuscular hemoglobin (MCH) determination 33.6 pg High 27.0-32.0 [facility] Mean corpuscular hemoglobin concentration (MCHC) determinationOrdered By: Nikia Henderson on 07-13-2024 Mean corpuscular hemoglobin concentration (MCHC) determination 32.9 g/dL 32-36 [facility] Mean platelet volume determi nationOrdered By: guanakocascadeheladio Henderson on 07-13-2024 Mean platelet volume determination 9.5 fl 6.2-12.0 [facility] Monocyte percentageOrdered B y: Nikia Henderson on 07-13-2024 Monocytes/100 WBC (Bld) 9.1 % 0-10 [facility] Monocyte percentage 9.1 % 0-10 [facility] Neutrophil percentageOrdered By: Nikia Henderson on 07-13-2024 Neutrophils/100 WBC (Bld) 61.7 % 47-70 [facility] Neutrophil percentage 61.7 % 47-70 [facility] Nucleated red blood cell per centageOrdered By: Nikia Henderson on 07-13-2024 Nucleated red blood cell percentage 0 % 0-5 [facility] Platelet countOrdered By: Cecilia Henderson on 07-13-2024 Platelets (Bld) [#/Vol] 267 10*3/uL 150-450 [facility] Platelet count 267 K/mm3 150-450 [facility] Potassium (Unsp spec) [Mass/ Vol]Ordered By: Nikia Henderson on 07-13-2024 Potassium measurement (mass/volume) 4.1 mmol/L 3.3-5.1 [facility] Potassium measurement (mass/ volume)Ordered By: Nikia Henderson on 07-13-2024 Potassium (Unsp spec) [Mass/Vol] 4.1 mmol/L 3.3-5.1 [facility] RBC Auto (Bld) [#/Vol]Ordere d By: Nikia Henderson on 07-13-2024 RBC (Bld) [#/Vol] 3.21 10*6/uL Low 4.2-5.4 [facility] Automated blood erythrocyte count 3.21 M/mm3 Low 4.2-5.4 [facility] Serum creatinine measurement (mass/volume)Ordered By: Nikia Henderson on 07-13-2024 Creatinine [Mass/Vol] 0.59 mg/dL Low 0.70-1.20 [facility] Serum glucose measurement (m ass/volume)Ordered By: Nikia Henderson on 07-13-2024 Glucose [Mass/Vol] 84 mg/dL 70-99 [facility] Serum or plasma calcium gianluca urement (mass/volume)Ordered By: Nikia Henderson on 07-13-2024 Calcium [Mass/Vol] 8.8 mg/dL 7.6-11.0 [facility] Serum or plasma urea nitroge n measurement (mass/volume)Ordered By: Nikia Henderson on 07-13-2024 Urea nitrogen [Mass/Vol] 12 mg/dL 4-19 [facility] Sodium levelOrdered By: Catalina terra Beatriz on 07-13-2024 Sodium [Moles/Vol] 141 mmol/L 133-145 [facility] Sodium level 141 mmol/L 133-145 [facility] Urea nitrogen [Mass/Vol]Orde red By: Nikia Henderson on 07-13-2024 Serum or plasma urea nitrogen measurement (mass/volume) 12 mg/dL 07-17 [facility] White blood cell (WBC) count Ordered By: Nikia Henderson on 07-13-2024 WBC (Bld) [#/Vol] 6.0 10*3/uL 4.4-11.0 [facility] White blood cell (WBC) count 6.0 K/mm3 4.4-11.0 [facility] CNPNon 07-08-2024 CNPN Telephone (REMS31) KEKELIZETTE Williamson ([id number]) 1945 F Date Time Provider Department 07/08/24 JOVANNI MATTHEW REMS31 During your visit today, we recorded the following information about you: Andressa Arias 07/08/2024 1:55 PM Signed New Patient appointment on 07/21/24 Received outside hospital, [facility] Radiology reports for x-rays and MRIs [...] supplement - COMPOUNDED PRESCRIPTION 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 Dx: Bilat sprained ankles, gait [...] NOS [K92.2] 03/08/2005 MYALGIA AND MYOSITIS NOS [[id number]] 09/02/2005 CONGENITAL PES PLANUS [Q66.50] 06/29/2007 Tibialis [...] Encounter Status:Closed by JOVANNI MATTHEW on 07/26/24 [facility] Absolute lymphocyte countOrd ered By: Nikia Henderson on 07-06-2024 Lymphocytes Auto (Unsp spec) [#/Vol] 1.68 10*3/uL 0.83-4.51 [facility] Absolute neutrophil countOrd ered By: Nikia Henderson on 07-06-2024 Neutrophils (Bld) [#/Vol] 4.0 10*3/uL 2.0-7.7 [facility] Absolute neutrophil count 4.0 X10^3/uL 2.0-7.7 [facility] Anion gap [Moles/Vol]Ordered By: Nikia Henderson on 07-06-2024 Anion gap in Serum or Plasma 10 5-15 [facility] Anion gap in Serum or Plasma Ordered By: Catalinacascadeheladio Henderson on 07-06-2024 Anion gap [Moles/Vol] 10 mmol/L 5-15 [facility] Automated lymphocyte count a s percentage of total leukocytesOrdered By: Nikia Henderson on 07-06-2024 Lymphocytes/100 WBC Auto (Unsp spec) 25.1 % 19-41 [facility] BUN/creatinine ratioOrdered By: Nikia Henderson on 07-06-2024 Urea nitrogen/Creatinine [Mass ratio] 23.7 mg/mg High 10-20 [facility] BUN/creatinine ratio 23.7 RATIO High 10-[address] [facility] Basophil percentageOrdered B y: Nikia Henderson on 07-06-2024 Basophils/100 WBC (Bld) 0.9 % 0-1 [facility] Basophil percentage 0.9 % 0-1 [facility] Calcium [Mass/Vol]Ordered By : Nikia Henderson on 07-06-2024 Serum or plasma calcium measurement (mass/volume) 8.8 mg/dL 7.6-11.0 [facility] Carbon dioxide, total [Moles /volume] in Central venous bloodOrdered By: Nikia Henderson on 07-06-2024 CO2 [Moles/Vol] 22.4 mmol/L 21.0-32.0 [facility] Carbon dioxide, total [Moles/volume] in Central venous blood 22.4 mmol/L 21.0-32.0 [facility] Chloride assayOrdered By: Cecilia Henderson on 07-06-2024 Chloride [Moles/Vol] 108 mmol/L 98-[address] [facility] Chloride assay 108 mmol/L 98-108 [facility] Creatinine [Mass/Vol]Ordered By: Nikia Henderson on 07-06-2024 Serum creatinine measurement (mass/volume) 0.76 mg/dL 0.70-1.20 [facility] Eosinophil percentageOrdered By: Nikia Henderson on 07-06-2024 Eosinophils/100 WBC (Bld) 2.5 % 0-5 [facility] Eosinophil percentage 2.5 % 0-5 [facility] Erythrocyte distribution wid th (RBC) [Ratio]Ordered By: Nikia Henderson on 07-06-2024 Erythrocyte distribution width ratio 14.3 % 11.6-14.6 [facility] Erythrocyte distribution width (RBC) [Entitic vol] 53.8 fL High 35.1-43.9 [facility] Erythrocyte distribution width standard deviation 53.8 fl High 35.1-43.9 [facility] Erythrocyte distribution wid th ratioOrdered By: Nikia Henderson on 07-06-2024 Erythrocyte distribution width (RBC) [Ratio] 14.3 % 11.6-14.6 [facility] Erythrocyte distribution wid th standard deviationOrdered By: Nikia Henderson on 07-06-2024 Erythrocyte distribution width (RBC) [Ratio] 53.8 fl High 35.1-43.9 [facility] GFR/1.73 sq M.predicted viji g non-blacks MDRD (S/P/Bld) [Vol rate/Area]Ordered By: Nikia Henderson on 07-06-2024 Estimated GFR (MDRD) Non-Af Amer 80 >60 [facility] Comment on above: mL/min/1.73m2 CKD-EP I Creatinine Equation (2020) Glomerular filtration rate (GFR) estimation/1.73 sq m using serum, plasma, or whole b 80 >60 [facility] Glomerular filtration rate ( GFR) estimation/1.73 sq m using serum, plasma, or whole bOrdered By: Nikia Henderson on 07-06-2024 GFR/1.73 sq M.predicted among non-blacks MDRD (S/P/Bld) [Vol rate/Area] 80 mL/min/{1.73_m2} >60 [facility] Glucose [Mass/Vol]Ordered By : Nikia Henderson on 07-06-2024 Serum glucose measurement (mass/volume) 90 mg/dL 70-99 [facility] Hematocrit Auto (Bld) [Volum e fraction]Ordered By: Nikia Henderson on 07-06-2024 Hematocrit (Bld) [Volume fraction] 34.4 % Low 37-47 [facility] Automated blood hematocrit (percentage) 34.4 % Low 37-47 [facility] Hemoglobin measurementOrdere d By: Nikia Henderson on 07-06-2024 Hemoglobin (Bld) [Mass/Vol] 11.1 g/dL Low 12.0-15. 0 [facility] Hemoglobin measurement 11.1 g/dL Low 12.0-15.0 [facility] Immature granulocytes/100 WB C Auto (Bld)Ordered By: Nikia Henderson on 07-06-2024 Immature granulocytes/100 WBC (Bld) 1.300 % High 0.0-0.9 [facility] Comment on above: IG% - Immature Granu locytes (promyelocytes, myelocytes and metamyelocytes) > 1% indicates that a LEFT SHIFT is Present. Automated immature granulocyte percentage 1.300 % High 0.0-0.9 [facility] Lymphocytes Auto (Unsp spec) [#/Vol]Ordered By: Nikia Henderson on 07-06-2024 Lymphocytes (Bld) [#/Vol] 1.68 10*3/uL 0.83-4.5 1 [facility] Absolute lymphocyte count 1.68 X10^3/uL 0.83-4. 51 [facility] Lymphocytes/100 WBC Auto (Un sp spec)Ordered By: Nikia Henderson on 07-06-2024 Lymphocytes/100 WBC (Bld) 25.1 % - [facility] Automated lymphocyte count as percentage of total leukocytes 25.1 % -41 [facility] MCV (RBC) [Entitic vol]Order ed By: Nikia Henderson on 07-06-2024 MCV (mean corpuscular volume) determination 103.6 fL High 81-99 [facility] MCV (mean corpuscular volume ) determinationOrdered By: Nikia Henderson on 07-06-2024 MCV (RBC) [Entitic vol] 103.6 fL High 81-99 [facility] Mean corpuscular hemoglobin (MCH) determinationOrdered By: Nikia Henderson on 07-06-2024 MCH (RBC) [Entitic mass] 33.4 pg High 27.0-32.0 [facility] Mean corpuscular hemoglobin (MCH) determination 33.4 pg High 27.0-32.0 [facility] Mean corpuscular hemoglobin concentration (MCHC) determinationOrdered By: Nikia Henderson on 07-06-2024 MCHC (RBC) [Mass/Vol] 32.3 g/dL 32-36 [facility] Mean corpuscular hemoglobin concentration (MCHC) determination 32.3 g/dL -36 [facility] Mean platelet volume determi nationOrdered By: Nikia Henderson on 07-06-2024 Platelet mean volume (Bld) [Entitic vol] 9.4 fL 6.2-12.0 [facility] Mean platelet volume determination 9.4 fl 6.2-12.0 [facility] Monocyte percentageOrdered B y: Nikia Henderson on 07-06-2024 Monocytes/100 WBC (Bld) 10.8 % High 0-10 [facility] Monocyte percentage 10.8 % High 0-10 [facility] Neutrophil percentageOrdered By: Nikia Henderson on 07-06-2024 Neutrophils/100 WBC (Bld) 59.4 % 47-70 [facility] Neutrophil percentage 59.4 % 47-70 [facility] Nucleated red blood cell per centageOrdered By: Nikia Henderson on 07-06-2024 Nucleated RBC/100 WBC (Bld) [Ratio] 0 % 0-5 [facility] Nucleated red blood cell percentage 0 % 0-5 [facility] Platelet countOrdered By: Cecilia Henderson on 07-06-2024 Platelets (Bld) [#/Vol] 299 10*3/uL 150-450 [facility] Platelet count 299 K/mm3 150-450 [facility] Potassium (Unsp spec) [Mass/ Vol]Ordered By: Nikia Henderson on 07-06-2024 Potassium [Moles/Vol] 4.3 mmol/L 3.3-5.1 [facility] Potassium measurement (mass/volume) 4.3 mmol/L 3.3-5.1 [facility] Potassium measurement (mass/ volume)Ordered By: Nikia Henderson on 07-06-2024 Potassium (Unsp spec) [Mass/Vol] 4.3 mmol/L 3.3-5.1 [facility] RBC Auto (Bld) [#/Vol]Ordere d By: Nikia Henderson on 07-06-2024 RBC (Bld) [#/Vol] 3.32 10*6/uL Low 4.2-5.4 [facility] Automated blood erythrocyte count 3.32 M/mm3 Low 4.2-5.4 [facility] Serum creatinine measurement (mass/volume)Ordered By: Nikia Henderson on 07-06-2024 Creatinine [Mass/Vol] 0.76 mg/dL 0.70-1.20 [facility] Serum glucose measurement (m ass/volume)Ordered By: Nikia Henderson on 07-06-2024 Glucose [Mass/Vol] 90 mg/dL 70-99 [facility] Serum or plasma calcium gianluca urement (mass/volume)Ordered By: Nikia Henderson on 07-06-2024 Calcium [Mass/Vol] 8.8 mg/dL 7.6-11.0 [facility] Serum or plasma urea nitroge n measurement (mass/volume)Ordered By: Nikia Henderson on 07-06-2024 Urea nitrogen [Mass/Vol] 18 mg/dL 4- [facility] Sodium levelOrdered By: Catalina terra Beatriz on 07-06-2024 Sodium [Moles/Vol] 140 mmol/L 133-145 [facility] Sodium level 140 mmol/L 133-145 [facility] Urea nitrogen [Mass/Vol]Orde red By: Nikia Henderson on 07-06-2024 Serum or plasma urea nitrogen measurement (mass/volume) 18 mg/dL - [facility] White blood cell (WBC) count Ordered By: Nikia Henderson on 07-06-2024 WBC (Bld) [#/Vol] 6.7 10*3/uL 4.4-11.0 [facility] White blood cell (WBC) count 6.7 K/mm3 4.4-11.0 [facility] Absolute lymphocyte countOrd ered By: Audra Drake on 06-29-2024 Lymphocytes Auto (Unsp spec) [#/Vol] 1.28 10*3/uL 0.83-4.51 [facility] Absolute neutrophil countOrd ered By: Audra Drake on 06-29-2024 Neutrophils (Bld) [#/Vol] 4.0 10*3/uL 2.0-7.7 [facility] Absolute neutrophil count 4.0 X10^3/uL 2.0-7.7 [facility] Anion gap [Moles/Vol]Ordered By: Audra Drake on 06-29-2024 Anion gap in Serum or Plasma 10 5-15 [facility] Anion gap in Serum or Plasma Ordered By: Audra Drake on 06-29-2024 Anion gap [Moles/Vol] 10 mmol/L 5-15 [facility] Automated lymphocyte count a s percentage of total leukocytesOrdered By: Audra Drake on 06-29-2024 Lymphocytes/100 WBC Auto (Unsp spec) 20.1 % -41 [facility] BUN/creatinine ratioOrdered By: Audra Drake on 06-29-2024 Urea nitrogen/Creatinine [Mass ratio] 18.5 mg/mg 10- [facility] BUN/creatinine ratio 18.5 RATIO 10-[address] [facility] Basophil percentageOrdered B y: Audra Drake on 06-29-2024 Basophils/100 WBC (Bld) 0.9 % 0-1 [facility] Basophil percentage 0.9 % 0-1 [facility] Calcium [Mass/Vol]Ordered By : Audra Drake on 06-29-2024 Serum or plasma calcium measurement (mass/volume) 9.0 mg/dL 7.6-11.0 [facility] Carbon dioxide, total [Moles /volume] in Central venous bloodOrdered By: Audra Drake on 06-29-2024 CO2 [Moles/Vol] 21.5 mmol/L 21.0-32.0 [facility] Carbon dioxide, total [Moles/volume] in Central venous blood 21.5 mmol/L 21.0-32.0 [facility] Chloride assayOrdered By: Dimitris Drake on 06-29-2024 Chloride [Moles/Vol] 109 mmol/L High 98-[address] [facility] Chloride assay 109 mmol/L High 98-108 [facility] Creatinine [Mass/Vol]Ordered By: Audra Drake on 06-29-2024 Serum creatinine measurement (mass/volume) 0.65 mg/dL Low 0.70-1.20 [facility] Eosinophil percentageOrdered By: Audra Drake on 06-29-2024 Eosinophils/100 WBC (Bld) 2.5 % 0-5 [facility] Eosinophil percentage 2.5 % 0-5 [facility] Erythrocyte distribution wid th (RBC) [Ratio]Ordered By: Audra Drake on 06-29-2024 Erythrocyte distribution width ratio 14.0 % 11.6-14.6 [facility] Erythrocyte distribution width (RBC) [Entitic vol] 51.9 fL High 35.1-43.9 [facility] Erythrocyte distribution width standard deviation 51.9 fl High 35.1-43.9 [facility] Erythrocyte distribution wid th ratioOrdered By: Audra Drake on 06-29-2024 Erythrocyte distribution width (RBC) [Ratio] 14.0 % 11.6-14.6 [facility] Erythrocyte distribution wid th standard deviationOrdered By: Audra Drake on 06-29-2024 Erythrocyte distribution width (RBC) [Ratio] 51.9 fl High 35.1-43.9 [facility] GFR/1.73 sq M.predicted viji g non-blacks MDRD (S/P/Bld) [Vol rate/Area]Ordered By: Audra Drake on 06-29-2024 Estimated GFR (MDRD) Non-Af Amer 90 >60 [facility] Comment on above: mL/min/1.73m2 CKD-EP I Creatinine Equation (2020) Glomerular filtration rate (GFR) estimation/1.73 sq m using serum, plasma, or whole b 90 >60 [facility] Glomerular filtration rate ( GFR) estimation/1.73 sq m using serum, plasma, or whole bOrdered By: Audra Drake on 06-29-2024 GFR/1.73 sq M.predicted among non-blacks MDRD (S/P/Bld) [Vol rate/Area] 90 mL/min/{1.73_m2} >60 [facility] Glucose [Mass/Vol]Ordered By : Audra Drake on 06-29-2024 Serum glucose measurement (mass/volume) 84 mg/dL 70-99 [facility] Hematocrit Auto (Bld) [Volum e fraction]Ordered By: Audra Drake on 06-29-2024 Hematocrit (Bld) [Volume fraction] 35.7 % Low 37-47 [facility] Automated blood hematocrit (percentage) 35.7 % Low 37-47 [facility] Hemoglobin measurementOrdere d By: Audra Drake on 06-29-2024 Hemoglobin (Bld) [Mass/Vol] 11.5 g/dL Low 12.0-15. 0 [facility] Hemoglobin measurement 11.5 g/dL Low 12.0-15.0 [facility] Immature granulocytes/100 WB C Auto (Bld)Ordered By: Audra Drake on 06-29-2024 Immature granulocytes/100 WBC (Bld) 1.100 % High 0.0-0.9 [facility] Comment on above: IG% - Immature Granu locytes (promyelocytes, myelocytes and metamyelocytes) > 1% indicates that a LEFT SHIFT is Present. Automated immature granulocyte percentage 1.100 % High 0.0-0.9 [facility] Lymphocytes Auto (Unsp spec) [#/Vol]Ordered By: Audra Drake on 06-29-2024 Lymphocytes (Bld) [#/Vol] 1.28 10*3/uL 0.83-4.5 1 [facility] Absolute lymphocyte count 1.28 X10^3/uL 0.83-4. 51 [facility] Lymphocytes/100 WBC Auto (Un sp spec)Ordered By: Audra Drake on 06-29-2024 Lymphocytes/100 WBC (Bld) 20.1 % [facility] Automated lymphocyte count as percentage of total leukocytes 20.1 % - [facility] MCV (RBC) [Entitic vol]Order ed By: Audra Drake on 06-29-2024 MCV (mean corpuscular volume) determination 99.7 fL High 81-99 [facility] MCV (mean corpuscular volume ) determinationOrdered By: Audra Drake on 06-29-2024 MCV (RBC) [Entitic vol] 99.7 fL High 81-99 [facility] Mean corpuscular hemoglobin (MCH) determinationOrdered By: Audra Drake on 06-29-2024 MCH (RBC) [Entitic mass] 32.1 pg High 27.0-32.0 [facility] Mean corpuscular hemoglobin (MCH) determination 32.1 pg High 27.0-32.0 [facility] Mean corpuscular hemoglobin concentration (MCHC) determinationOrdered By: Audra Drake on 06-29-2024 MCHC (RBC) [Mass/Vol] 32.2 g/dL -36 [facility] Mean corpuscular hemoglobin concentration (MCHC) determination 32.2 g/dL -36 [facility] Mean platelet volume determi nationOrdered By: Audar Drake on 06-29-2024 Platelet mean volume (Bld) [Entitic vol] 9.5 fL 6.2-12.0 [facility] Mean platelet volume determination 9.5 fl 6.2-12.0 [facility] Monocyte percentageOrdered B y: Audra Drake on 06-29-2024 Monocytes/100 WBC (Bld) 12.3 % High 0-10 [facility] Monocyte percentage 12.3 % High 0-10 [facility] Neutrophil percentageOrdered By: Audra Drake on 06-29-2024 Neutrophils/100 WBC (Bld) 63.1 % 47-70 [facility] Neutrophil percentage 63.1 % 47-70 [facility] Nucleated red blood cell per centageOrdered By: Audra Drake on 06-29-2024 Nucleated RBC/100 WBC (Bld) [Ratio] 0 % 0-5 [facility] Nucleated red blood cell percentage 0 % 0-5 [facility] Platelet countOrdered By: Dimitris Drake on 06-29-2024 Platelets (Bld) [#/Vol] 307 10*3/uL 150-450 [facility] Platelet count 307 K/mm3 150-450 [facility] Potassium (Unsp spec) [Mass/ Vol]Ordered By: Audra Drake on 06-29-2024 Potassium [Moles/Vol] 4.4 mmol/L 3.3-5.1 [facility] Potassium measurement (mass/volume) 4.4 mmol/L 3.3-5.1 [facility] Potassium measurement (mass/ volume)Ordered By: Audra Drake on 06-29-2024 Potassium (Unsp spec) [Mass/Vol] 4.4 mmol/L 3.3-5.1 [facility] RBC Auto (Bld) [#/Vol]Ordere d By: Audra Drake on 06-29-2024 RBC (Bld) [#/Vol] 3.58 10*6/uL Low 4.2-5.4 [facility] Automated blood erythrocyte count 3.58 M/mm3 Low 4.2-5.4 [facility] Serum creatinine measurement (mass/volume)Ordered By: Audra Drake on 06-29-2024 Creatinine [Mass/Vol] 0.65 mg/dL Low 0.70-1.20 [facility] Serum glucose measurement (m ass/volume)Ordered By: Audra Drake on 06-29-2024 Glucose [Mass/Vol] 84 mg/dL 70-99 [facility] Serum or plasma calcium gianluca urement (mass/volume)Ordered By: Audra Drake on 06-29-2024 Calcium [Mass/Vol] 9.0 mg/dL 7.6-11.0 [facility] Serum or plasma urea nitroge n measurement (mass/volume)Ordered By: Audra Drake on 06-29-2024 Urea nitrogen [Mass/Vol] 12 mg/dL 07-17 [facility] Sodium levelOrdered By: Cony Drake on 06-29-2024 Sodium [Moles/Vol] 140 mmol/L 133-145 [facility] Sodium level 140 mmol/L 133-145 [facility] Urea nitrogen [Mass/Vol]Orde red By: Audra Drake on 06-29-2024 Serum or plasma urea nitrogen measurement (mass/volume) 12 mg/dL 07-17 [facility] White blood cell (WBC) count Ordered By: Audra Drake on 06-29-2024 WBC (Bld) [#/Vol] 6.4 10*3/uL 4.4-11.0 [facility] White blood cell (WBC) count 6.4 K/mm3 4.4-11.0 [facility] Absolute lymphocyte countOrd ered By: Audra Drake on 06-22-2024 Lymphocytes Auto (Unsp spec) [#/Vol] 1.15 10*3/uL 0.83-4.51 [facility] Absolute neutrophil countOrd ered By: Audra Drake on 06-22-2024 Neutrophils (Bld) [#/Vol] 4.9 10*3/uL 2.0-7.7 [facility] Absolute neutrophil count 4.9 X10^3/uL 2.0-7.7 [facility] Anion gap [Moles/Vol]Ordered By: Audra Drake on 06-22-2024 Anion gap in Serum or Plasma 11 5-15 [facility] Anion gap in Serum or Plasma Ordered By: Audra Drake on 06-22-2024 Anion gap [Moles/Vol] 11 mmol/L - [facility] Automated lymphocyte count a s percentage of total leukocytesOrdered By: Audra Drake on 06-22-2024 Lymphocytes/100 WBC Auto (Unsp spec) 16.2 % Low 19-41 [facility] BUN/creatinine ratioOrdered By: Audra Drake on 06-22-2024 Urea nitrogen/Creatinine [Mass ratio] 18.7 mg/mg 10- [facility] BUN/creatinine ratio 18.7 RATIO 10-[address] [facility] Basophil percentageOrdered B y: Audra Drake on 06-22-2024 Basophils/100 WBC (Bld) 0.6 % 0-1 [facility] Basophil percentage 0.6 % 0-1 [facility] Calcium [Mass/Vol]Ordered By : Audra Drake on 06-22-2024 Serum or plasma calcium measurement (mass/volume) 8.6 mg/dL 7.6-11.0 [facility] Carbon dioxide, total [Moles /volume] in Central venous bloodOrdered By: Audra Drake on 06-22-2024 CO2 [Moles/Vol] 19.5 mmol/L Low 21.0-32.0 [facility] Carbon dioxide, total [Moles/volume] in Central venous blood 19.5 mmol/L Low 21.0-32.0 [facility] Chloride assayOrdered By: Dimitris Drake on 06-22-2024 Chloride [Moles/Vol] 107 mmol/L 98-[address] [facility] Chloride assay 107 mmol/L 98-108 [facility] Creatinine [Mass/Vol]Ordered By: Audra Drake on 06-22-2024 Serum creatinine measurement (mass/volume) 0.78 mg/dL 0.70-1.20 [facility] Eosinophil percentageOrdered By: Audra Drake on 06-22-2024 Eosinophils/100 WBC (Bld) 2.3 % 0-5 [facility] Eosinophil percentage 2.3 % 0-5 [facility] Erythrocyte distribution wid th (RBC) [Ratio]Ordered By: Audra Drake on 06-22-2024 Erythrocyte distribution width ratio 13.9 % 11.6-14.6 [facility] Erythrocyte distribution width (RBC) [Entitic vol] 51.1 fL High 35.1-43.9 [facility] Erythrocyte distribution width standard deviation 51.1 fl High 35.1-43.9 [facility] Erythrocyte distribution wid th ratioOrdered By: Audra Drake on 06-22-2024 Erythrocyte distribution width (RBC) [Ratio] 13.9 % 11.6-14.6 [facility] Erythrocyte distribution wid th standard deviationOrdered By: Audra Drake on 06-22-2024 Erythrocyte distribution width (RBC) [Ratio] 51.1 fl High 35.1-43.9 [facility] GFR/1.73 sq M.predicted viji g non-blacks MDRD (S/P/Bld) [Vol rate/Area]Ordered By: Audra Drake on 06-22-2024 Estimated GFR (MDRD) Non-Af Amer 78 >60 [facility] Comment on above: mL/min/1.73m2 CKD-EP I Creatinine Equation (2020) Glomerular filtration rate (GFR) estimation/1.73 sq m using serum, plasma, or whole b 78 >60 [facility] Glomerular filtration rate ( GFR) estimation/1.73 sq m using serum, plasma, or whole bOrdered By: Audra Draek on 06-22-2024 GFR/1.73 sq M.predicted among non-blacks MDRD (S/P/Bld) [Vol rate/Area] 78 mL/min/{1.73_m2} >60 [facility] Glucose [Mass/Vol]Ordered By : Audra Drake on 06-22-2024 Serum glucose measurement (mass/volume) 91 mg/dL 70-99 [facility] Hematocrit Auto (Bld) [Volum e fraction]Ordered By: Audra Drake on 06-22-2024 Hematocrit (Bld) [Volume fraction] 35.7 % Low 37-47 [facility] Automated blood hematocrit (percentage) 35.7 % Low 37-47 [facility] Hemoglobin measurementOrdere d By: Audra Drake on 06-22-2024 Hemoglobin (Bld) [Mass/Vol] 11.6 g/dL Low 12.0-15. 0 [facility] Hemoglobin measurement 11.6 g/dL Low 12.0-15.0 [facility] Immature granulocytes/100 WB C Auto (Bld)Ordered By: Audra Drake on 06-22-2024 Immature granulocytes/100 WBC (Bld) 1.100 % High 0.0-0.9 [facility] Comment on above: IG% - Immature Granu locytes (promyelocytes, myelocytes and metamyelocytes) > 1% indicates that a LEFT SHIFT is Present. Automated immature granulocyte percentage 1.100 % High 0.0-0.9 [facility] Lymphocytes Auto (Unsp spec) [#/Vol]Ordered By: Audra Drake on 06-22-2024 Lymphocytes (Bld) [#/Vol] 1.15 10*3/uL 0.83-4.5 1 [facility] Absolute lymphocyte count 1.15 X10^3/uL 0.83-4. 51 [facility] Lymphocytes/100 WBC Auto (Un sp spec)Ordered By: Audra Drake on 06-22-2024 Lymphocytes/100 WBC (Bld) 16.2 % Low - [facility] Automated lymphocyte count as percentage of total leukocytes 16.2 % Low -41 [facility] MCV (RBC) [Entitic vol]Order ed By: Audra Drake on 06-22-2024 MCV (mean corpuscular volume) determination 100.3 fL High 81-99 [facility] MCV (mean corpuscular volume ) determinationOrdered By: Audra Drake on 06-22-2024 MCV (RBC) [Entitic vol] 100.3 fL High 81-99 [facility] Mean corpuscular hemoglobin (MCH) determinationOrdered By: Audra Drake on 06-22-2024 MCH (RBC) [Entitic mass] 32.6 pg High 27.0-32.0 [facility] Mean corpuscular hemoglobin (MCH) determination 32.6 pg High 27.0-32.0 [facility] Mean corpuscular hemoglobin concentration (MCHC) determinationOrdered By: Audra Drake on 06-22-2024 MCHC (RBC) [Mass/Vol] 32.5 g/dL 32-36 [facility] Mean corpuscular hemoglobin concentration (MCHC) determination 32.5 g/dL -36 [facility] Mean platelet volume determi nationOrdered By: Audra Drake on 06-22-2024 Platelet mean volume (Bld) [Entitic vol] 9.9 fL 6.2-12.0 [facility] Mean platelet volume determination 9.9 fl 6.2-12.0 [facility] Monocyte percentageOrdered B y: Audra Drake on 06-22-2024 Monocytes/100 WBC (Bld) 11.0 % High 0-10 [facility] Monocyte percentage 11.0 % High 0-10 [facility] Neutrophil percentageOrdered By: Audra Drake on 06-22-2024 Neutrophils/100 WBC (Bld) 68.8 % 47-70 [facility] Neutrophil percentage 68.8 % 47-70 [facility] Nucleated red blood cell per centageOrdered By: Audra Drake on 06-22-2024 Nucleated RBC/100 WBC (Bld) [Ratio] 0 % 0-5 [facility] Nucleated red blood cell percentage 0 % 0-5 [facility] Platelet countOrdered By: Dimitris Drake on 06-22-2024 Platelets (Bld) [#/Vol] 235 10*3/uL 150-450 [facility] Platelet count 235 K/mm3 150-450 [facility] Potassium (Unsp spec) [Mass/ Vol]Ordered By: Audra Drake on 06-22-2024 Potassium [Moles/Vol] 4.4 mmol/L 3.3-5.1 [facility] Potassium measurement (mass/volume) 4.4 mmol/L 3.3-5.1 [facility] Potassium measurement (mass/ volume)Ordered By: Audra Drake on 06-22-2024 Potassium (Unsp spec) [Mass/Vol] 4.4 mmol/L 3.3-5.1 [facility] RBC Auto (Bld) [#/Vol]Ordere d By: Audra Drake on 06-22-2024 RBC (Bld) [#/Vol] 3.56 10*6/uL Low 4.2-5.4 [facility] Automated blood erythrocyte count 3.56 M/mm3 Low 4.2-5.4 [facility] Serum creatinine measurement (mass/volume)Ordered By: Audra Drake on 06-22-2024 Creatinine [Mass/Vol] 0.78 mg/dL 0.70-1.20 [facility] Serum glucose measurement (m ass/volume)Ordered By: Audra Drake on 06-22-2024 Glucose [Mass/Vol] 91 mg/dL 70-99 [facility] Serum or plasma calcium gianluca urement (mass/volume)Ordered By: Audra Drake on 06-22-2024 Calcium [Mass/Vol] 8.6 mg/dL 7.6-11.0 [facility] Serum or plasma urea nitroge n measurement (mass/volume)Ordered By: Audra Drake on 06-22-2024 Urea nitrogen [Mass/Vol] 15 mg/dL 07-17 [facility] Sodium levelOrdered By: Cony Drake on 06-22-2024 Sodium [Moles/Vol] 138 mmol/L 133-145 [facility] Sodium level 138 mmol/L 133-145 [facility] Urea nitrogen [Mass/Vol]Orde red By: Audra Drake on 06-22-2024 Serum or plasma urea nitrogen measurement (mass/volume) 15 mg/dL 07-17 [facility] White blood cell (WBC) count Ordered By: Audra Drake on 06-22-2024 WBC (Bld) [#/Vol] 7.1 10*3/uL 4.4-11.0 [facility] White blood cell (WBC) count 7.1 K/mm3 4.4-11.0 [facility] Absolute lymphocyte countOrd ered By: Nikia Henderson on 06-15-2024 Lymphocytes Auto (Unsp spec) [#/Vol] 1.51 10*3/uL 0.83-4.51 [facility] Absolute neutrophil countOrd ered By: Nikia Henderson on 06-15-2024 Neutrophils (Bld) [#/Vol] 2.2 10*3/uL 2.0-7.7 [facility] Absolute neutrophil count 2.2 X10^3/uL 2.0-7.7 [facility] Anion gap [Moles/Vol]Ordered By: Nikia Henderson on 06-15-2024 Anion gap in Serum or Plasma 11 5- [facility] Anion gap in Serum or Plasma Ordered By: Nikia Henderson on 06-15-2024 Anion gap [Moles/Vol] 11 mmol/L - [facility] Automated lymphocyte count a s percentage of total leukocytesOrdered By: Nikia Henderson on 06-15-2024 Lymphocytes/100 WBC Auto (Unsp spec) 34.6 % 19-41 [facility] BUN/creatinine ratioOrdered By: Nikia Henderson on 06-15-2024 Urea nitrogen/Creatinine [Mass ratio] 22.9 mg/mg High 10-20 [facility] BUN/creatinine ratio 22.9 RATIO High 10-[address] [facility] Basophil percentageOrdered B y: Nikia Henderson on 06-15-2024 Basophils/100 WBC (Bld) 0.5 % 0-1 [facility] Basophil percentage 0.5 % 0-1 [facility] Calcium [Mass/Vol]Ordered By : Nikia Henderson on 06-15-2024 Serum or plasma calcium measurement (mass/volume) 8.7 mg/dL 7.6-11.0 [facility] Carbon dioxide, total [Moles /volume] in Central venous bloodOrdered By: Nikia Henderson on 06-15-2024 CO2 [Moles/Vol] 20.2 mmol/L Low 21.0-32.0 [facility] Carbon dioxide, total [Moles/volume] in Central venous blood 20.2 mmol/L Low 21.0-32.0 [facility] Chloride assayOrdered By: Cecilia Henderson on 06-15-2024 Chloride [Moles/Vol] 111 mmol/L High 98-[address] [facility] Chloride assay 111 mmol/L High 98-108 [facility] Creatinine [Mass/Vol]Ordered By: Nikia Henderson on 06-15-2024 Serum creatinine measurement (mass/volume) 0.65 mg/dL Low 0.70-1.20 [facility] Eosinophil percentageOrdered By: Nikia Henderson on 06-15-2024 Eosinophils/100 WBC (Bld) 2.1 % 0-5 [facility] Eosinophil percentage 2.1 % 0-5 [facility] Erythrocyte distribution wid th (RBC) [Ratio]Ordered By: Nikia Henderson on 06-15-2024 Erythrocyte distribution width ratio 14.2 % 11.6-14.6 [facility] Erythrocyte distribution width (RBC) [Entitic vol] 52.7 fL High 35.1-43.9 [facility] Erythrocyte distribution width standard deviation 52.7 fl High 35.1-43.9 [facility] Erythrocyte distribution wid th ratioOrdered By: Nikia Henderson on 06-15-2024 Erythrocyte distribution width (RBC) [Ratio] 14.2 % 11.6-14.6 [facility] Erythrocyte distribution wid th standard deviationOrdered By: Nikia Henderson on 06-15-2024 Erythrocyte distribution width (RBC) [Ratio] 52.7 fl High 35.1-43.9 [facility] GFR/1.73 sq M.predicted viji g non-blacks MDRD (S/P/Bld) [Vol rate/Area]Ordered By: Nikia Henderson on 06-15-2024 Estimated GFR (MDRD) Non-Af Amer 90 >60 [facility] Comment on above: mL/min/1.73m2 CKD-EP I Creatinine Equation (2020) Glomerular filtration rate (GFR) estimation/1.73 sq m using serum, plasma, or whole b 90 >60 [facility] Glomerular filtration rate ( GFR) estimation/1.73 sq m using serum, plasma, or whole bOrdered By: Nikia Henderson on 06-15-2024 GFR/1.73 sq M.predicted among non-blacks MDRD (S/P/Bld) [Vol rate/Area] 90 mL/min/{1.73_m2} >60 [facility] Glucose [Mass/Vol]Ordered By : Nikia Henderson on 06-15-2024 Serum glucose measurement (mass/volume) 83 mg/dL 70-99 [facility] Hematocrit Auto (Bld) [Volum e fraction]Ordered By: Nikia Henderson on 06-15-2024 Hematocrit (Bld) [Volume fraction] 39.1 % 37-47 [facility] Automated blood hematocrit (percentage) 39.1 % 37-47 [facility] Hemoglobin measurementOrdere d By: Nikia Henderson on 06-15-2024 Hemoglobin (Bld) [Mass/Vol] 12.4 g/dL 12.0-15. 0 [facility] Hemoglobin measurement 12.4 g/dL 12.0-15.0 [facility] Immature granulocytes/100 WB C Auto (Bld)Ordered By: Nikia Henderson on 06-15-2024 Immature granulocytes/100 WBC (Bld) 0.700 % 0.0-0.9 [facility] Comment on above: IG% - Immature Granu locytes (promyelocytes, myelocytes and metamyelocytes) > 1% indicates that a LEFT SHIFT is Present. Automated immature granulocyte percentage 0.700 % 0.0-0.9 [facility] Lymphocytes Auto (Unsp spec) [#/Vol]Ordered By: Nikia Henderson on 06-15-2024 Lymphocytes (Bld) [#/Vol] 1.51 10*3/uL 0.83-4.5 1 [facility] Absolute lymphocyte count 1.51 X10^3/uL 0.83-4. 51 [facility] Lymphocytes/100 WBC Auto (Un sp spec)Ordered By: Nikia Henderson on 06-15-2024 Lymphocytes/100 WBC (Bld) 34.6 % [facility] Automated lymphocyte count as percentage of total leukocytes 34.6 % - [facility] MCV (RBC) [Entitic vol]Order ed By: Nikia Henderson on 06-15-2024 MCV (mean corpuscular volume) determination 100.8 fL High 81-99 [facility] MCV (mean corpuscular volume ) determinationOrdered By: Nikia Henderson on 06-15-2024 MCV (RBC) [Entitic vol] 100.8 fL High 81-99 [facility] Mean corpuscular hemoglobin (MCH) determinationOrdered By: Nikia Henderson on 06-15-2024 MCH (RBC) [Entitic mass] 32.0 pg 27.0-32.0 [facility] Mean corpuscular hemoglobin (MCH) determination 32.0 pg 27.0-32.0 [facility] Mean corpuscular hemoglobin concentration (MCHC) determinationOrdered By: Nikia Henderson on 06-15-2024 MCHC (RBC) [Mass/Vol] 31.7 g/dL Low 32-36 [facility] Mean corpuscular hemoglobin concentration (MCHC) determination 31.7 g/dL Low 32-36 [facility] Mean platelet volume determi nationOrdered By: Nikia Henderson on 06-15-2024 Platelet mean volume (Bld) [Entitic vol] 9.6 fL 6.2-12.0 [facility] Mean platelet volume determination 9.6 fl 6.2-12.0 [facility] Monocyte percentageOrdered B y: Nikia Henderson on 06-15-2024 Monocytes/100 WBC (Bld) 11.5 % High 0-10 [facility] Monocyte percentage 11.5 % High 0-10 [facility] Neutrophil percentageOrdered By: Nikia Henderson on 06-15-2024 Neutrophils/100 WBC (Bld) 50.6 % 47-70 [facility] Neutrophil percentage 50.6 % 47-70 [facility] Nucleated red blood cell per centageOrdered By: Nikia Henderson on 06-15-2024 Nucleated RBC/100 WBC (Bld) [Ratio] 0 % 0-5 [facility] Nucleated red blood cell percentage 0 % 0-5 [facility] Platelet countOrdered By: Ceiclia Henderson on 06-15-2024 Platelets (Bld) [#/Vol] 215 10*3/uL 150-450 [facility] Platelet count 215 K/mm3 150-450 [facility] Potassium (Unsp spec) [Mass/ Vol]Ordered By: Nikia Henderson on 06-15-2024 Potassium [Moles/Vol] 4.7 mmol/L 3.3-5.1 [facility] Comment on above: Hemolysis present, R esults could be affected. Potassium measurement (mass/volume) 4.7 mmol/L 3.3-5.1 [facility] Potassium measurement (mass/ volume)Ordered By: Nikia Henderson on 06-15-2024 Potassium (Unsp spec) [Mass/Vol] 4.7 mmol/L 3.3-5.1 [facility] RBC Auto (Bld) [#/Vol]Ordere d By: Nikia Henderson on 06-15-2024 RBC (Bld) [#/Vol] 3.88 10*6/uL Low 4.2-5.4 [facility] Automated blood erythrocyte count 3.88 M/mm3 Low 4.2-5.4 [facility] Serum creatinine measurement (mass/volume)Ordered By: Nikia Henderson on 06-15-2024 Creatinine [Mass/Vol] 0.65 mg/dL Low 0.70-1.20 [facility] Serum glucose measurement (m ass/volume)Ordered By: Nikia Henderson on 06-15-2024 Glucose [Mass/Vol] 83 mg/dL 70-99 [facility] Serum or plasma calcium gianluca urement (mass/volume)Ordered By: Nikia Henderson on 06-15-2024 Calcium [Mass/Vol] 8.7 mg/dL 7.6-11.0 [facility] Serum or plasma urea nitroge n measurement (mass/volume)Ordered By: Nikia Henderson on 06-15-2024 Urea nitrogen [Mass/Vol] 15 mg/dL - [facility] Sodium levelOrdered By: Catalina Henderson on 06-15-2024 Sodium [Moles/Vol] 142 mmol/L 133-145 [facility] Sodium level 142 mmol/L 133-145 [facility] Urea nitrogen [Mass/Vol]Orde red By: Nikia Henderson on 06-15-2024 Serum or plasma urea nitrogen measurement (mass/volume) 15 mg/dL 4- [facility] White blood cell (WBC) count Ordered By: Nikia Henderson on 06-15-2024 WBC (Bld) [#/Vol] 4.4 10*3/uL 4.4-11.0 [facility] White blood cell (WBC) count 4.4 K/mm3 4.4-11.0 [facility] Absolute lymphocyte countOrd ered By: Nikia Henderson on 06-08-2024 Lymphocytes Auto (Unsp spec) [#/Vol] 1.41 10*3/uL 0.83-4.51 [facility] Absolute neutrophil countOrd ered By: Nikia Henderson on 06-08-2024 Neutrophils (Bld) [#/Vol] 3.7 10*3/uL 2.0-7.7 [facility] Absolute neutrophil count 3.7 X10^3/uL 2.0-7.7 [facility] Anion gap [Moles/Vol]Ordered By: Nikia Henderson on 06-08-2024 Anion gap in Serum or Plasma 10 5- [facility] Anion gap in Serum or Plasma Ordered By: Nikia Henderson on 06-08-2024 Anion gap [Moles/Vol] 10 mmol/L 5- [facility] Automated lymphocyte count a s percentage of total leukocytesOrdered By: Nikia Henderson on 06-08-2024 Lymphocytes/100 WBC Auto (Unsp spec) 23.7 % 19-41 [facility] BUN/creatinine ratioOrdered By: Nikia Henderson on 06-08-2024 Urea nitrogen/Creatinine [Mass ratio] 29.4 mg/mg High 10-20 [facility] BUN/creatinine ratio 29.4 RATIO High 10-[address] [facility] Basophil percentageOrdered B y: Nikia Henderson on 06-08-2024 Basophils/100 WBC (Bld) 0.3 % 0-1 [facility] Basophil percentage 0.3 % 0-1 [facility] Calcium [Mass/Vol]Ordered By : Nikia Henderson on 06-08-2024 Serum or plasma calcium measurement (mass/volume) 8.9 mg/dL 7.6-11.0 [facility] Carbon dioxide, total [Moles /volume] in Central venous bloodOrdered By: Nikia Henderson on 06-08-2024 CO2 [Moles/Vol] 21.5 mmol/L 21.0-32.0 [facility] Carbon dioxide, total [Moles/volume] in Central venous blood 21.5 mmol/L 21.0-32.0 [facility] Chloride assayOrdered By: Cecilia Henderson on 06-08-2024 Chloride [Moles/Vol] 110 mmol/L High 98-[address] [facility] Chloride assay 110 mmol/L High 98-108 [facility] Creatinine [Mass/Vol]Ordered By: Nikia Henderson on 06-08-2024 Serum creatinine measurement (mass/volume) 0.68 mg/dL Low 0.70-1.20 [facility] Eosinophil percentageOrdered By: Nikia Henderson on 06-08-2024 Eosinophils/100 WBC (Bld) 3.2 % 0-5 [facility] Eosinophil percentage 3.2 % 0-5 [facility] Erythrocyte distribution wid th (RBC) [Ratio]Ordered By: Nikia Henderson on 06-08-2024 Erythrocyte distribution width ratio 14.5 % 11.6-14.6 [facility] Erythrocyte distribution width (RBC) [Entitic vol] 53.2 fL High 35.1-43.9 [facility] Erythrocyte distribution width standard deviation 53.2 fl High 35.1-43.9 [facility] Erythrocyte distribution wid th ratioOrdered By: Nikia Henderson on 06-08-2024 Erythrocyte distribution width (RBC) [Ratio] 14.5 % 11.6-14.6 [facility] Erythrocyte distribution wid th standard deviationOrdered By: Nikia Henderson on 06-08-2024 Erythrocyte distribution width (RBC) [Ratio] 53.2 fl High 35.1-43.9 [facility] GFR/1.73 sq M.predicted viji g non-blacks MDRD (S/P/Bld) [Vol rate/Area]Ordered By: Nikia Henderson on 06-08-2024 Estimated GFR (MDRD) Non-Af Amer 89 >60 [facility] Comment on above: mL/min/1.73m2 CKD-EP I Creatinine Equation (2020) Glomerular filtration rate (GFR) estimation/1.73 sq m using serum, plasma, or whole b 89 >60 [facility] Glomerular filtration rate ( GFR) estimation/1.73 sq m using serum, plasma, or whole bOrdered By: Nikia Henderson on 06-08-2024 GFR/1.73 sq M.predicted among non-blacks MDRD (S/P/Bld) [Vol rate/Area] 89 mL/min/{1.73_m2} >60 [facility] Glucose [Mass/Vol]Ordered By : Nikia Henderson on 06-08-2024 Serum glucose measurement (mass/volume) 85 mg/dL 70-99 [facility] Hematocrit Auto (Bld) [Volum e fraction]Ordered By: Nikia Henderson on 06-08-2024 Hematocrit (Bld) [Volume fraction] 35.9 % Low 37-47 [facility] Automated blood hematocrit (percentage) 35.9 % Low 37-47 [facility] Hemoglobin measurementOrdere d By: Nikia Henderson on 06-08-2024 Hemoglobin (Bld) [Mass/Vol] 11.5 g/dL Low 12.0-15. 0 [facility] Hemoglobin measurement 11.5 g/dL Low 12.0-15.0 [facility] Immature granulocytes/100 WB C Auto (Bld)Ordered By: Nikia Henderson on 06-08-2024 Immature granulocytes/100 WBC (Bld) 0.300 % 0.0-0.9 [facility] Comment on above: IG% - Immature Granu locytes (promyelocytes, myelocytes and metamyelocytes) > 1% indicates that a LEFT SHIFT is Present. Automated immature granulocyte percentage 0.300 % 0.0-0.9 [facility] Lymphocytes Auto (Unsp spec) [#/Vol]Ordered By: Nikia Henderson on 06-08-2024 Lymphocytes (Bld) [#/Vol] 1.41 10*3/uL 0.83-4.5 1 [facility] Absolute lymphocyte count 1.41 X10^3/uL 0.83-4. 51 [facility] Lymphocytes/100 WBC Auto (Un sp spec)Ordered By: Nikia Henderson on 06-08-2024 Lymphocytes/100 WBC (Bld) 23.7 % [facility] Automated lymphocyte count as percentage of total leukocytes 23.7 % [facility] MCV (RBC) [Entitic vol]Order ed By: Nikia Henderson on 06-08-2024 MCV (mean corpuscular volume) determination 100.3 fL High 81-99 [facility] MCV (mean corpuscular volume ) determinationOrdered By: Nikia Henderson on 06-08-2024 MCV (RBC) [Entitic vol] 100.3 fL High 81-99 [facility] Mean corpuscular hemoglobin (MCH) determinationOrdered By: Nikia Henderson on 06-08-2024 MCH (RBC) [Entitic mass] 32.1 pg High 27.0-32.0 [facility] Mean corpuscular hemoglobin (MCH) determination 32.1 pg High 27.0-32.0 [facility] Mean corpuscular hemoglobin concentration (MCHC) determinationOrdered By: Nikia Henderson on 06-08-2024 MCHC (RBC) [Mass/Vol] 32.0 g/dL 32-36 [facility] Mean corpuscular hemoglobin concentration (MCHC) determination 32.0 g/dL -36 [facility] Mean platelet volume determi nationOrdered By: Nikia Henderson on 06-08-2024 Platelet mean volume (Bld) [Entitic vol] 9.4 fL 6.2-12.0 [facility] Mean platelet volume determination 9.4 fl 6.2-12.0 [facility] Monocyte percentageOrdered B y: Nikia Henderson on 06-08-2024 Monocytes/100 WBC (Bld) 9.4 % 0-10 [facility] Monocyte percentage 9.4 % 0-10 [facility] Neutrophil percentageOrdered By: Nikia Henderson on 06-08-2024 Neutrophils/100 WBC (Bld) 63.1 % 47-70 [facility] Neutrophil percentage 63.1 % 47-70 [facility] Nucleated red blood cell per centageOrdered By: Nikia Henderson on 06-08-2024 Nucleated RBC/100 WBC (Bld) [Ratio] 0 % 0-5 [facility] Nucleated red blood cell percentage 0 % 0-5 [facility] Platelet countOrdered By: Cecilia Henderson on 06-08-2024 Platelets (Bld) [#/Vol] 244 10*3/uL 150-450 [facility] Platelet count 244 K/mm3 150-450 [facility] Potassium (Unsp spec) [Mass/ Vol]Ordered By: Nikia Henderson on 06-08-2024 Potassium [Moles/Vol] 4.3 mmol/L 3.3-5.1 [facility] Potassium measurement (mass/volume) 4.3 mmol/L 3.3-5.1 [facility] Potassium measurement (mass/ volume)Ordered By: Nikia Henderson on 06-08-2024 Potassium (Unsp spec) [Mass/Vol] 4.3 mmol/L 3.3-5.1 [facility] RBC Auto (Bld) [#/Vol]Ordere d By: Nikia Henderson on 06-08-2024 RBC (Bld) [#/Vol] 3.58 10*6/uL Low 4.2-5.4 [facility] Automated blood erythrocyte count 3.58 M/mm3 Low 4.2-5.4 [facility] Serum creatinine measurement (mass/volume)Ordered By: Nikia Henderson on 06-08-2024 Creatinine [Mass/Vol] 0.68 mg/dL Low 0.70-1.20 [facility] Serum glucose measurement (m ass/volume)Ordered By: Nikia Henderson on 06-08-2024 Glucose [Mass/Vol] 85 mg/dL 70-99 [facility] Serum or plasma calcium gianluca urement (mass/volume)Ordered By: Nikia Henderson on 06-08-2024 Calcium [Mass/Vol] 8.9 mg/dL 7.6-11.0 [facility] Serum or plasma urea nitroge n measurement (mass/volume)Ordered By: Nikia Henderson on 06-08-2024 Urea nitrogen [Mass/Vol] 20 mg/dL High 07-17 [facility] Sodium levelOrdered By: Catalina Henderson on 06-08-2024 Sodium [Moles/Vol] 141 mmol/L 133-145 [facility] Sodium level 141 mmol/L 133-145 [facility] Urea nitrogen [Mass/Vol]Orde red By: Nikia Henderson on 06-08-2024 Serum or plasma urea nitrogen measurement (mass/volume) 20 mg/dL High 07-17 [facility] White blood cell (WBC) count Ordered By: Nikia Henderson on 06-08-2024 WBC (Bld) [#/Vol] 5.9 10*3/uL 4.4-11.0 [facility] White blood cell (WBC) count 5.9 K/mm3 4.4-11.0 [facility] Absolute lymphocyte countOrd ered By: Nikia Henderson on 06-01-2024 Lymphocytes Auto (Unsp spec) [#/Vol] 1.46 10*3/uL 0.83-4.51 [facility] Absolute neutrophil countOrd ered By: Nikia Henderson on 06-01-2024 Neutrophils (Bld) [#/Vol] 5.2 10*3/uL 2.0-7.7 [facility] Absolute neutrophil count 5.2 X10^3/uL 2.0-7.7 [facility] Anion gap [Moles/Vol]Ordered By: Nikia Henderson on 06-01-2024 Anion gap in Serum or Plasma 11 5-15 [facility] Anion gap in Serum or Plasma Ordered By: Nikia Henderson on 06-01-2024 Anion gap [Moles/Vol] 11 mmol/L 5-15 [facility] Automated lymphocyte count a s percentage of total leukocytesOrdered By: Nikia Henderson on 06-01-2024 Lymphocytes/100 WBC Auto (Unsp spec) 19.4 % 19-41 [facility] BUN/creatinine ratioOrdered By: Nikia Henderson on 06-01-2024 Urea nitrogen/Creatinine [Mass ratio] 30.2 mg/mg High 10-20 [facility] BUN/creatinine ratio 30.2 RATIO High 10-[address] [facility] Basophil percentageOrdered B y: Nikia Henderson on 06-01-2024 Basophils/100 WBC (Bld) 0.7 % 0-1 [facility] Basophil percentage 0.7 % 0-1 [facility] Calcium [Mass/Vol]Ordered By : Nikia Henderson on 06-01-2024 Serum or plasma calcium measurement (mass/volume) 9.0 mg/dL 7.6-11.0 [facility] Carbon dioxide, total [Moles /volume] in Central venous bloodOrdered By: Nikia Henderson on 06-01-2024 CO2 [Moles/Vol] 20.7 mmol/L Low 21.0-32.0 [facility] Carbon dioxide, total [Moles/volume] in Central venous blood 20.7 mmol/L Low 21.0-32.0 [facility] Chloride assayOrdered By: guanakoterra Henderson on 06-01-2024 Chloride [Moles/Vol] 110 mmol/L High 98-[address] [facility] Chloride assay 110 mmol/L High 98-108 [facility] Creatinine [Mass/Vol]Ordered By: Nikia Henderson on 06-01-2024 Serum creatinine measurement (mass/volume) 0.72 mg/dL 0.70-1.20 [facility] Eosinophil percentageOrdered By: [facility] on 06-01-2024 Eosinophils/100 WBC (Bld) 1.6 % 0-5 [facility] Eosinophil percentage 1.6 % 0-5 [facility] Erythrocyte distribution wid th (RBC) [Ratio]Ordered By: Nikia Henderson on 06-01-2024 Erythrocyte distribution width ratio 14.1 % 11.6-14.6 [facility] Erythrocyte distribution width (RBC) [Entitic vol] 51.8 fL High 35.1-43.9 [facility] Erythrocyte distribution width standard deviation 51.8 fl High 35.1-43.9 [facility] Erythrocyte distribution wid th ratioOrdered By: [facility] Beatriz on 06-01-2024 Erythrocyte distribution width (RBC) [Ratio] 14.1 % 11.6-14.6 [facility] Erythrocyte distribution wid th standard deviationOrdered By: [facility] Cristobaljanicevioletta on 06-01-2024 Erythrocyte distribution width (RBC) [Ratio] 51.8 fl High 35.1-43.9 [facility] GFR/1.73 sq M.predicted viji g non-blacks MDRD (S/P/Bld) [Vol rate/Area]Ordered By: Nikia Henderson on 06-01-2024 Estimated GFR (MDRD) Non-Af Amer 86 >60 [facility] Comment on above: mL/min/1.73m2 CKD-EP I Creatinine Equation (2020) Glomerular filtration rate (GFR) estimation/1.73 sq m using serum, plasma, or whole b 86 >60 [facility] Glomerular filtration rate ( GFR) estimation/1.73 sq m using serum, plasma, or whole bOrdered By: Nikia Henderson on 06-01-2024 GFR/1.73 sq M.predicted among non-blacks MDRD (S/P/Bld) [Vol rate/Area] 86 mL/min/{1.73_m2} >60 [facility] Glucose [Mass/Vol]Ordered By : Nikia Henderson on 06-01-2024 Serum glucose measurement (mass/volume) 94 mg/dL 70-99 [facility] Hematocrit Auto (Bld) [Volum e fraction]Ordered By: Nikia Henderson on 06-01-2024 Hematocrit (Bld) [Volume fraction] 36.4 % Low 37-47 [facility] Automated blood hematocrit (percentage) 36.4 % Low 37-47 [facility] Hemoglobin measurementOrdere d By: Nikia Henderson on 06-01-2024 Hemoglobin (Bld) [Mass/Vol] 11.7 g/dL Low 12.0-15. 0 [facility] Hemoglobin measurement 11.7 g/dL Low 12.0-15.0 [facility] Immature granulocytes/100 WB C Auto (Bld)Ordered By: Nikia Henderson on 06-01-2024 Immature granulocytes/100 WBC (Bld) 0.400 % 0.0-0.9 [facility] Comment on above: IG% - Immature Granu locytes (promyelocytes, myelocytes and metamyelocytes) > 1% indicates that a LEFT SHIFT is Present. Automated immature granulocyte percentage 0.400 % 0.0-0.9 [facility] Lymphocytes Auto (Unsp spec) [#/Vol]Ordered By: Nikia Henderson on 06-01-2024 Lymphocytes (Bld) [#/Vol] 1.46 10*3/uL 0.83-4.5 1 [facility] Absolute lymphocyte count 1.46 X10^3/uL 0.83-4. 51 [facility] Lymphocytes/100 WBC Auto (Un sp spec)Ordered By: Nikia Henderson on 06-01-2024 Lymphocytes/100 WBC (Bld) 19.4 % - [facility] Automated lymphocyte count as percentage of total leukocytes 19.4 % -41 [facility] MCV (RBC) [Entitic vol]Order ed By: Nikia Henderson on 06-01-2024 MCV (mean corpuscular volume) determination 100.6 fL High 81-99 [facility] MCV (mean corpuscular volume ) determinationOrdered By: Nikia Henderson on 06-01-2024 MCV (RBC) [Entitic vol] 100.6 fL High 81-99 [facility] Mean corpuscular hemoglobin (MCH) determinationOrdered By: Nikia Henderson on 06-01-2024 MCH (RBC) [Entitic mass] 32.3 pg High 27.0-32.0 [facility] Mean corpuscular hemoglobin (MCH) determination 32.3 pg High 27.0-32.0 [facility] Mean corpuscular hemoglobin concentration (MCHC) determinationOrdered By: Nikia Henderson on 06-01-2024 MCHC (RBC) [Mass/Vol] 32.1 g/dL 32-36 [facility] Mean corpuscular hemoglobin concentration (MCHC) determination 32.1 g/dL -36 [facility] Mean platelet volume determi nationOrdered By: Nikia Henderson on 06-01-2024 Platelet mean volume (Bld) [Entitic vol] 9.8 fL 6.2-12.0 [facility] Mean platelet volume determination 9.8 fl 6.2-12.0 [facility] Monocyte percentageOrdered B y: Nikia Henderson on 06-01-2024 Monocytes/100 WBC (Bld) 8.5 % 0-10 [facility] Monocyte percentage 8.5 % 0-10 [facility] Neutrophil percentageOrdered By: Nikia Henderson on 06-01-2024 Neutrophils/100 WBC (Bld) 69.4 % 47-70 [facility] Neutrophil percentage 69.4 % 47-70 [facility] Nucleated red blood cell per centageOrdered By: Nikia Henderson on 06-01-2024 Nucleated RBC/100 WBC (Bld) [Ratio] 0 % 0-5 [facility] Nucleated red blood cell percentage 0 % 0-5 [facility] Platelet countOrdered By: Cecilia Henderson on 06-01-2024 Platelets (Bld) [#/Vol] 234 10*3/uL 150-450 [facility] Platelet count 234 K/mm3 150-450 [facility] Potassium (Unsp spec) [Mass/ Vol]Ordered By: Nikia Henderson on 06-01-2024 Potassium [Moles/Vol] 4.4 mmol/L 3.3-5.1 [facility] Potassium measurement (mass/volume) 4.4 mmol/L 3.3-5.1 [facility] Potassium measurement (mass/ volume)Ordered By: Nikia Henderson on 06-01-2024 Potassium (Unsp spec) [Mass/Vol] 4.4 mmol/L 3.3-5.1 [facility] RBC Auto (Bld) [#/Vol]Ordere d By: Nikia Henderson on 06-01-2024 RBC (Bld) [#/Vol] 3.62 10*6/uL Low 4.2-5.4 [facility] Automated blood erythrocyte count 3.62 M/mm3 Low 4.2-5.4 [facility] Serum creatinine measurement (mass/volume)Ordered By: Nikia Henderson on 06-01-2024 Creatinine [Mass/Vol] 0.72 mg/dL 0.70-1.20 [facility] Serum glucose measurement (m ass/volume)Ordered By: Nikia Henderson on 06-01-2024 Glucose [Mass/Vol] 94 mg/dL 70-99 [facility] Serum or plasma calcium gianluca urement (mass/volume)Ordered By: Nikia Henderson on 06-01-2024 Calcium [Mass/Vol] 9.0 mg/dL 7.6-11.0 [facility] Serum or plasma urea nitroge n measurement (mass/volume)Ordered By: Nikia Henderson on 06-01-2024 Urea nitrogen [Mass/Vol] 22 mg/dL High 4-19 [facility] Sodium levelOrdered By: Catalina Henderson on 06-01-2024 Sodium [Moles/Vol] 142 mmol/L 133-145 [facility] Sodium level 142 mmol/L 133-145 [facility] Urea nitrogen [Mass/Vol]Orde red By: Nikia Henderson on 06-01-2024 Serum or plasma urea nitrogen measurement (mass/volume) 22 mg/dL High 07-17 [facility] White blood cell (WBC) count Ordered By: Nikia Henderson on 06-01-2024 WBC (Bld) [#/Vol] 7.5 10*3/uL 4.4-11.0 [facility] White blood cell (WBC) count 7.5 K/mm3 4.4-11.0 [facility] Basic Metabolic Profile (BMP )on 05-28-2024 BUN Normal 7-18 [facility] Comment on above: Result Comment: Canc elled via OM: Order cancelled - Patient discharged Performed By: #### L 500.2500, L100.0100 ####[facility] [address] [place], [address] BUN/CRE Normal 10-20 [facility] Comment on above: Result Comment: Canc elled via OM: Order cancelled - Patient discharged Performed By: #### L 500.2500, L100.0100 ####[facility] [address] [place], [address] CA,Total Normal 8.5-10.1 [facility] Comment on above: Result Comment: Canc elled via OM: Order cancelled - Patient discharged Performed By: #### L 500.2500, L100.0100 ####[facility] [address] [place], [address] CL Normal 98-107 [facility] Comment on above: Result Comment: Canc elled via OM: Order cancelled - Patient discharged Performed By: #### L 500.2500, L100.0100 ####[facility] [address] [place], [address] CO2 Normal 21.0-32.0 [facility] Comment on above: Result Comment: Canc elled via OM: Order cancelled - Patient discharged Performed By: #### L 500.2500, L100.0100 ####[facility] [address] [place], [address] CREAT,SERUM Normal 0.55-1.02 [facility] Comment on above: Result Comment: Canc elled via OM: Order cancelled - Patient discharged Performed By: #### L 500.2500, L100.0100 ####[facility] [address] [place], [address] EST GFR Normal >60 [facility] Comment on above: Result Comment: Canc elled via OM: Order cancelled - Patient discharged Performed By: #### L 500.2500, L100.0100 ####[facility] [address] [place], [address] EST GFR - AA Normal >60 [facility] Comment on above: Result Comment: Canc elled via OM: Order cancelled - Patient discharged Performed By: #### L 500.2500, L100.0100 ####[facility] [address] [place], [address] GAP Normal 5-15 [facility] Comment on above: Result Comment: Canc elled via OM: Order cancelled - Patient discharged Performed By: #### L 500.2500, L100.0100 ####[facility] [address] [place], [address] GLU Normal 74-106 [facility] Comment on above: Result Comment: Canc elled via OM: Order cancelled - Patient discharged Performed By: #### L 500.2500, L100.0100 ####[facility] [address] [place], [address] Potassium Normal 3.5-5.1 [facility] Comment on above: Result Comment: Canc elled via OM: Order cancelled - Patient discharged Performed By: #### L 500.2500, L100.0100 ####[facility] [address] [place], [address] Basic Metabolic Profile (BMP) Normal 136-145 [facility] Comment on above: Result Comment: Canc elled via OM: Order cancelled - Patient discharged Performed By: #### L 500.2500, L100.0100 ####[facility] [address] [place], [address] CBC W/Diff, Automatedon - Absolute Neut Normal 2.0-7.7 [facility] Comment on above: Result Comment: Canc elled via OM: Order cancelled - Patient discharged Performed By: #### L 500.2500, L100.0100 ####[facility] [address] [place], [address] HCT Normal 37-47 [facility] Comment on above: Result Comment: Canc elled via OM: Order cancelled - Patient discharged Performed By: #### L 500.2500, L100.0100 ####[facility] [address] [place], [address] HGB Normal 12.0-15.0 [facility] Comment on above: Result Comment: Canc elled via OM: Order cancelled - Patient discharged Performed By: #### L 500.2500, L100.0100 ####[facility] [address] [place], [address] MCH Normal 27.0-32.0 [facility] Comment on above: Result Comment: Canc elled via OM: Order cancelled - Patient discharged Performed By: #### L 500.2500, L100.0100 ####[facility] [address] [place], [address] MCHC Normal 32-36 [facility] Comment on above: Result Comment: Canc elled via OM: Order cancelled - Patient discharged Performed By: #### L 500.2500, L100.0100 ####[facility] [address] [place], [address] MCV Normal 81-99 [facility] Comment on above: Result Comment: Canc elled via OM: Order cancelled - Patient discharged Performed By: #### L 500.2500, L100.0100 ####[facility] [address] [place], [address] NEUT% Normal 47-70 [facility] Comment on above: Result Comment: Canc elled via OM: Order cancelled - Patient discharged Performed By: #### L 500.2500, L100.0100 ####[facility] [address] [place], [address] PLT Normal 150-450 [facility] Comment on above: Result Comment: Canc elled via OM: Order cancelled - Patient discharged Performed By: #### L 500.2500, L100.0100 ####[facility] [address] [place], [address] RBC Normal 4.2-5.4 [facility] Comment on above: Result Comment: Canc elled via OM: Order cancelled - Patient discharged Performed By: #### L 500.2500, L100.0100 ####[facility] [address] [place], [address] RDW CV Normal 11.6-14.6 [facility] Comment on above: Result Comment: Canc elled via OM: Order cancelled - Patient discharged Performed By: #### L 500.2500, L100.0100 ####[facility] [address] [place], [address] RDW SD Normal 35.1-43.9 [facility] Comment on above: Result Comment: Canc elled via OM: Order cancelled - Patient discharged Performed By: #### L 500.2500, L100.0100 ####[facility] [address] [place], [address] WBC Normal 4.4-11.0 [facility] Comment on above: Result Comment: Canc elled via OM: Order cancelled - Patient discharged Performed By: #### L 500.2500, L100.0100 ####[facility] [address] [place], [address] Absolute lymphocyte countOrd ered By: Michael Snowden on 05-21-2024 Lymphocytes Auto (Unsp spec) [#/Vol] 1.68 10*3/uL 0.83-4.51 [facility] Absolute neutrophil countOrd ered By: [facility]-21-[facility]24 Neutrophils (Bld) [#/Vol] 6.3 10*3/uL 2.0-7.7 [facility] Absolute neutrophil count 6.3 X10^3/uL 2.0-7.7 [facility] Automated lymphocyte count a s percentage of total leukocytesOrdered By: Michael Snowden on 05-21-2024 Lymphocytes/100 WBC Auto (Unsp spec) 18.3 % Low 19-41 [facility] Basic Metabolic Profile (BMP )on 05-21-2024 BUN/CRE 39.8 RATIO High 10-20 [facility] Comment on above: Performed By: #### L 500.2500, L100.0100 ####[facility] [address] [place], [address] CA,Total 8.9 mg/dL Normal 8.5-10.1 [facility] Comment on above: Performed By: #### L 500.2500, L100.0100 ####[facility] [address] [place], [address] Chloride [Moles/Vol] 109 mmol/L High 98-[address] [facility] Comment on above: Performed By: #### L 500.2500, L100.0100 ####[facility] [address] [place], [address] CO2 [Moles/Vol] 22.0 mmol/L Normal 21.0-32.0 [facility] Comment on above: Performed By: #### L 500.2500, L100.0100 ####[facility] [address] [place], [address] Creatinine [Mass/Vol] 0.80 mg/dL Normal 0.55-1.02 [facility] Comment on above: Result Comment: The validity of the calculated GFR GFRAA in patients over70 years has not been determined. Clinical correlation isessential. Performed By: #### L 500.2500, L100.0100 ####[facility] [address] [place], [address] ECRCL 50.86 ml/min Normal [facility] Comment on above: Performed By: #### L 500.2500, L100.0100 ####[facility] [address] [place], [address] EST GFR - AA 89 mL/min Normal >60 [facility] Comment on above: Result Comment: Afri can Tanz[place] GFR Calc Performed By: #### L 500.2500, L100.0100 ####[facility] [address] [place], [address] GAP 9 Normal 5-15 [facility] Comment on above: Performed By: #### L 500.2500, L100.0100 ####[facility] [address] [place], [address] GFR/1.73 sq M.predicted among non-blacks MDRD (S/P/Bld) [Vol rate/Area] 73 mL/min/{1.73_m2} Normal >60 [facility] Comment on above: Result Comment: Non- GFR Calc Performed By: #### L 500.2500, L100.0100 ####[facility] [address] [place], [address] Glucose [Mass/Vol] 85 mg/dL Normal 74-106 [facility] Comment on above: Performed By: #### L 500.2500, L100.0100 ####[facility] [address] [place], [address] Potassium [Moles/Vol] 5.1 mmol/L Normal 3.5-5.1 [facility] Comment on above: Performed By: #### L 500.2500, L100.0100 ####[facility] [address] [place], [address] Sodium [Moles/Vol] 140 mmol/L Normal 136-145 [facility] Comment on above: Performed By: #### L 500.2500, L100.0100 ####[facility] [address] [place], [address] Urea nitrogen [Mass/Vol] 32 mg/dL High 10-15 [facility] Comment on above: Performed By: #### L 500.2500, L100.0100 ####[facility] [address] [place], [address] Basophil percentageOrdered B y: Michael Snowden on 05-21-2024 Basophils/100 WBC (Bld) 0.1 % 0-1 [facility] Basophil percentage 0.1 % 0-1 [facility] Blood urea nitrogen (BUN)/cr eatinine ratioOrdered By: Michael Snowden on 05-21-2024 Urea nitrogen/Creatinine [Mass ratio] 39.8 mg/mg High 01-17 [facility] Blood urea nitrogen (BUN)/creatinine ratio 39.8 RATIO High 01-17 [facility] CBC W/Diff, Automatedon 05-02 Absolute Lymph 1.68 X10 3/uL Normal 0.83-4.51 [facility] Comment on above: Performed By: #### L 500.2500, L100.0100 ####[facility] [address] [place], [address] Absolute Neut 6.3 X10 3/uL Normal 2.0-7.7 [facility] Comment on above: Performed By: #### L 500.2500, L100.0100 ####[facility] [address] [place], [address] Basophils/100 WBC (Bld) 0.1 % Normal 0-1 [facility] Comment on above: Performed By: #### L 500.2500, L100.0100 ####[facility] [address] [place], [address] Eosinophils/100 WBC (Bld) 0.4 % Normal 0-5 [facility] Comment on above: Performed By: #### L 500.2500, L100.0100 ####[facility] [address] [place], [address] Erythrocyte distribution width (RBC) [Ratio] 14.3 % Normal 11.6-14.6 [facility] Comment on above: Performed By: #### L 500.2500, L100.0100 ####[facility] [address] [place], [address] Hematocrit (Bld) [Volume fraction] 34.3 % Low 37-47 [facility] Comment on above: Performed By: #### L 500.2500, L100.0100 ####[facility] [address] [place], [address] Hemoglobin (Bld) [Mass/Vol] 11.0 g/dL Low 12.0-15. 0 [facility] Comment on above: Performed By: #### L 500.2500, L100.0100 ####[facility] [address] [place], [address] IG% 2.600 High 0.0-0.9 [facility] Comment on above: Result Comment: IG% - Immature Granulocytes (promyelocytes, myelocytes andmetamyelocytes) > 1% indicates that a LEFT SHIFT is Present. Performed By: #### L 500.2500, L100.0100 ####[facility] [address] [place], [address] Lymphocytes/100 WBC (Bld) 18.3 % Low 19-41 [facility] Comment on above: Performed By: #### L 500.2500, L100.0100 ####[facility] [address] [place], [address] MCH (RBC) [Entitic mass] 31.7 pg Normal 27.0-32.0 [facility] Comment on above: Performed By: #### L 500.2500, L100.0100 ####[facility] [address] [place], [address] MCHC (RBC) [Mass/Vol] 32.1 g/dL Normal 32-36 [facility] Comment on above: Performed By: #### L 500.2500, L100.0100 ####[facility] [address] [place], [address] MCV (RBC) [Entitic vol] 98.8 fL Normal 81-99 [facility] Comment on above: Performed By: #### L 500.2500, L100.0100 ####[facility] [address] [place], [address] Monocytes/100 WBC (Bld) 9.6 % Normal 0-10 [facility] Comment on above: Performed By: #### L 500.2500, L100.0100 ####[facility] [address] [place], [address] Neutrophils/100 WBC (Bld) 69.0 % Normal 47-70 [facility] Comment on above: Performed By: #### L 500.2500, L100.0100 ####[facility] [address] [place], [address] Nucleated RBC (Bld) [#/Vol] 0 10*3/uL Normal 0-5 [facility] Comment on above: Performed By: #### L 500.2500, L100.0100 ####[facility] [address] [place], [address] Platelet mean volume (Bld) [Entitic vol] 8.9 fL Normal 6.2-12.0 [facility] Comment on above: Performed By: #### L 500.2500, L100.0100 ####[facility] [address] [place], [address] Platelets (Bld) [#/Vol] 280 10*3/uL Normal 150-450 [facility] Comment on above: Performed By: #### L 500.2500, L100.0100 ####[facility] [address] [place], [address] RBC (Bld) [#/Vol] 3.47 10*6/uL Low 4.2-5.4 [facility] Comment on above: Performed By: #### L 500.2500, L100.0100 ####[facility] [address] [place], [address] RDW SD 52.0 fl High 35.1-43.9 [facility] Comment on above: Performed By: #### L 500.2500, L100.0100 ####[facility] [address] [place], [address] WBC (Bld) [#/Vol] 9.2 10*3/uL Normal 4.4-11.0 [facility] Comment on above: Performed By: #### L 500.2500, L100.0100 ####[facility] [address] [place], [address] Calcium [Mass/Vol]Ordered By : Michael Snowden on 05-21-2024 Serum or plasma calcium measurement (mass/volume) 8.9 mg/dL 8.5-10.1 [facility] Carbon dioxide measurementOr dered By: Michael Snowden on 05-21-2024 CO2 [Moles/Vol] 22.0 mmol/L 21.0-32.0 [facility] Carbon dioxide measurement 22.0 mmol/L 21.0-32. 0 [facility] Chloride measurementOrdered By: Michael Snowden on 05-21-2024 Chloride [Moles/Vol] 109 mmol/L High 98-[address] [facility] Chloride measurement 109 mmol/L High 98-[address] [facility] Creatinine [Mass/Vol]Ordered By: Michael Snowden 05-21-2024 Serum or plasma creatinine measurement (mass/volume) 0.80 mg/dL 0.55-1.02 [facility] Eosinophil percentageOrdered By: Michael Snowden 05-21-2024 Eosinophils/100 WBC (Bld) 0.4 % 0-5 [facility] Eosinophil percentage 0.4 % 0-5 [facility] Erythrocyte distribution wid th (RBC) [Ratio]Ordered By: Michael Snowden 05-21-2024 Erythrocyte distribution width ratio 14.3 % 11.6-14.6 [facility] Erythrocyte distribution width (RBC) [Entitic vol] 52.0 fL High 35.1-43.9 [facility] Erythrocyte distribution width standard deviation 52.0 fl High 35.1-43.9 [facility] Erythrocyte distribution wid th ratioOrdered By: Michael Snowden 05-21-2024 Erythrocyte distribution width (RBC) [Ratio] 14.3 % 11.6-14.6 [facility] Erythrocyte distribution wid th standard deviationOrdered By: Michael Snowden 05-21-2024 Erythrocyte distribution width (RBC) [Ratio] 52.0 fl High 35.1-43.9 [facility] Estimated glomerular filtrat ion rate (GFR) AmericanOrdered By: Michael Snowden on 05-21-2024 Estimated GFR (MDRD) Amer 89 mL/min >60 [facility] Comment on above: GFR Calc Estimated glomerular filtration rate (GFR) 89 mL/min >60 [facility] Estimation of creatinine bharat aranceOrdered By: Michael Snowden on 05-21-2024 Estimated Creatinine Clearance Calc 50.86 ml/min [facility] Estimation of creatinine clearance 50.86 ml/min [facility] Glomerular filtration rate ( GFR) estimationOrdered By: Michael Snowden on 05-21-2024 Estimated GFR (MDRD) Non-Af Amer 73 mL/min >60 [facility] Comment on above: Non- GFR Calc GFR/1.73 sq M.predicted among non-blacks MDRD (S/P/Bld) [Vol rate/Area] 73 mL/min/{1.73_m2} >60 [facility] Glomerular filtration rate (GFR) estimation 73 mL/min >60 [facility] Glucose measurementOrdered B y: Michael Snowden on 05-21-2024 Glucose [Mass/Vol] 85 mg/dL 74-106 [facility] Glucose measurement 85 mg/dL 74-106 [facility] Hematocrit Auto (Bld) [Volum e fraction]Ordered By: Michael Snowden on 05-21-2024 Hematocrit (Bld) [Volume fraction] 34.3 % Low 37-47 [facility] Automated blood hematocrit (percentage) 34.3 % Low 37-47 [facility] Hemoglobin measurementOrdere d By: Michael Snowden on 05-21-2024 Hemoglobin (Bld) [Mass/Vol] 11.0 g/dL Low 12.0-15. 0 [facility] Hemoglobin measurement 11.0 g/dL Low 12.0-15.0 [facility] Immature granulocytes/100 WB C Auto (Bld)Ordered By: Michael Snowden on 05-21-2024 Immature granulocytes/100 WBC (Bld) 2.600 % High 0.0-0.9 [facility] Comment on above: IG% - Immature Granu locytes (promyelocytes, myelocytes and metamyelocytes) > 1% indicates that a LEFT SHIFT is Present. Automated immature granulocyte percentage 2.600 % High 0.0-0.9 [facility] Lymphocytes Auto (Unsp spec) [#/Vol]Ordered By: Michael Snowden on 05-21-2024 Lymphocytes (Bld) [#/Vol] 1.68 10*3/uL 0.83-4.5 1 [facility] Absolute lymphocyte count 1.68 X10^3/uL 0.83-4. 51 [facility] Lymphocytes/100 WBC Auto (Un sp spec)Ordered By: Michael Snowden on 05-21-2024 Lymphocytes/100 WBC (Bld) 18.3 % Low 19-41 [facility] Automated lymphocyte count as percentage of total leukocytes 18.3 % Low 19-41 [facility] MCV (RBC) [Entitic vol]Order ed By: Michael Snowden on 05-21-2024 MCV (mean corpuscular volume) determination 98.8 fL 81-99 [facility] MCV (mean corpuscular volume ) determinationOrdered By: Michael Snowden on 05-21-2024 MCV (RBC) [Entitic vol] 98.8 fL 81-99 [facility] Mean corpuscular hemoglobin (MCH) determinationOrdered By: Michael Snowden on 05-21-2024 MCH (RBC) [Entitic mass] 31.7 pg 27.0-32.0 [facility] Mean corpuscular hemoglobin (MCH) determination 31.7 pg 27.0-32.0 [facility] Mean corpuscular hemoglobin concentration (MCHC) determinationOrdered By: Michael Snowden on 05-21-2024 MCHC (RBC) [Mass/Vol] 32.1 g/dL 32-36 [facility] Mean corpuscular hemoglobin concentration (MCHC) determination 32.1 g/dL -36 [facility] Mean platelet volume determi nationOrdered By: Michael Snowden on 05-21-2024 Platelet mean volume (Bld) [Entitic vol] 8.9 fL 6.2-12.0 [facility] Mean platelet volume determination 8.9 fl 6.2-12.0 [facility] Monocyte percentageOrdered B y: Michael Snowden on 05-21-2024 Monocytes/100 WBC (Bld) 9.6 % 0-10 [facility] Monocyte percentage 9.6 % 0-10 [facility] Neutrophil percentageOrdered By: Michael Snowden on 05-21-2024 Neutrophils/100 WBC (Bld) 69.0 % 47-70 [facility] Neutrophil percentage 69.0 % 47-70 [facility] Nucleated red blood cell per centageOrdered By: Michael Snowden on 05-21-2024 Nucleated RBC/100 WBC (Bld) [Ratio] 0 % 0-5 [facility] Nucleated red blood cell percentage 0 % 0-5 [facility] Platelet countOrdered By: Augusto Snowden on 05-21-2024 Platelets (Bld) [#/Vol] 280 10*3/uL 150-450 [facility] Platelet count 280 K/mm3 150-450 [facility] Potassium measurementOrdered By: Michael Snowden on 05-21-2024 Potassium [Moles/Vol] 5.1 mmol/L 3.5-5.1 [facility] Potassium measurement 5.1 mmol/L 3.5-5.1 [facility] RBC Auto (Bld) [#/Vol]Ordere d By: Michael Snowden on 05-21-2024 RBC (Bld) [#/Vol] 3.47 10*6/uL Low 4.2-5.4 [facility] Automated blood erythrocyte count 3.47 M/mm3 Low 4.2-5.4 [facility] Serum anion gap measurementO rdered By: Michael Snowden on 05-21-2024 Anion gap [Moles/Vol] 9 mmol/L 5-15 [facility] Serum anion gap measurement 9 5-15 [facility] Serum or plasma calcium gianluca urement (mass/volume)Ordered By: Michael Snowden on 05-21-2024 Calcium [Mass/Vol] 8.9 mg/dL 8.5-10.1 [facility] Serum or plasma creatinine m easurement (mass/volume)Ordered By: Michael Snowden on 05-21-2024 Creatinine [Mass/Vol] 0.80 mg/dL 0.55-1.02 [facility] Comment on above: The validity of the calculated GFR & GFRAA in patients over 70 years has not been determined. Clinical correlation is essential. Serum or plasma urea nitroge n measurement (mass/volume)Ordered By: Michael Snowden on 05-21-2024 Urea nitrogen [Mass/Vol] 32 mg/dL High 7-18 [facility] Sodium levelOrdered By: Michael Snowden on 05-21-2024 Sodium [Moles/Vol] 140 mmol/L 136-145 [facility] Sodium level 140 mmol/L 136-145 [facility] Urea nitrogen [Mass/Vol]Orde red By: Michael Amezquitaok on 05-21-2024 Serum or plasma urea nitrogen measurement (mass/volume) 32 mg/dL High 7-18 [facility] White blood cell (WBC) count Ordered By: Michael Sp on 05-21-2024 WBC (Bld) [#/Vol] 9.2 10*3/uL 4.4-11.0 [facility] White blood cell (WBC) count 9.2 K/mm3 4.4-11.0 [facility] COVID 19 AG RAPID (ELIE Saini)on 05-19-2024 SARS-CoV-2 (COVID-19) RNA DALILA+probe Ql (Unsp spec) Normal [facility] Comment on above: Performed By: #### M 100.505 ####[facility] [address] [place], [address] COVID-19 virus antigen assay Ordered By: Michael Sp on 05-19-2024 SARS-CoV-2 (COVID-19) Ag IA.rapid Ql (Resp) [facility] SARS-CoV-2 (COVID-19) Ag IA. rapid Ql (Resp)Ordered By: Michael Amezquitaok on 05-19-2024 SARS-CoV-2 Antigen (Rapid) [facility] Lumbar Spine 2 or 3 Viewson 05-18-2024 Lumbar Spine 2 or 3 Views Normal [facility] Basic Metabolic Profile (BMP )on 05-14-2024 BUN/CRE 22.1 RATIO High 10-20 [facility] Comment on above: Performed By: #### L 500.2500, L100.0100 ####[facility] [address] [place], [address] CA,Total 9.2 mg/dL Normal 8.5-10.1 [facility] Comment on above: Performed By: #### L 500.2500, L100.0100 ####[facility] [address] [place], [address] Chloride [Moles/Vol] 108 mmol/L High 98-[address] [facility] Comment on above: Performed By: #### L 500.2500, L100.0100 ####[facility] [address] [place], [address] CO2 [Moles/Vol] 23.0 mmol/L Normal 21.0-32.0 [facility] Comment on above: Performed By: #### L 500.2500, L100.0100 ####[facility] [address] [place], [address] Creatinine [Mass/Vol] 0.63 mg/dL Normal 0.55-1.02 [facility] Comment on above: Result Comment: The validity of the calculated GFR GFRAA in patients over70 years has not been determined. Clinical correlation isessential. Performed By: #### L 500.2500, L100.0100 ####[facility] [address] [place], [address] ECRCL 50.48 ml/min Normal [facility] Comment on above: Performed By: #### L 500.2500, L100.0100 ####[facility] [address] [place], [address] EST GFR - AA 117 mL/min Normal >60 [facility] Comment on above: Result Comment: Afri can Tanzanian GFR Calc Performed By: #### L 500.2500, L100.0100 ####[facility] [address] [place], [address] GAP 6 Normal 5-15 [facility] Comment on above: Performed By: #### L 500.2500, L100.0100 ####[facility] [address] [place], [address] GFR/1.73 sq M.predicted among non-blacks MDRD (S/P/Bld) [Vol rate/Area] 96 mL/min/{1.73_m2} Normal >60 [facility] Comment on above: Result Comment: Non- GFR Calc Performed By: #### L 500.2500, L100.0100 ####[facility] [address] [place], [address] Glucose [Mass/Vol] 88 mg/dL Normal 74-106 [facility] Comment on above: Performed By: #### L 500.2500, L100.0100 ####[facility] [address] [place], [address] Potassium [Moles/Vol] 4.1 mmol/L Normal 3.5-5.1 [facility] Comment on above: Performed By: #### L 500.2500, L100.0100 ####[facility] [address] [place], [address] Sodium [Moles/Vol] 137 mmol/L Normal 136-145 [facility] Comment on above: Performed By: #### L 500.2500, L100.0100 ####[facility] [address] [place], [address] Urea nitrogen [Mass/Vol] 14 mg/dL Normal 7-18 [facility] Comment on above: Performed By: #### L 500.2500, L100.0100 ####[facility] [address] [place], [address] CBC W/Diff, Automatedon 05-01 Absolute Lymph 1.29 X10 3/uL Normal 0.83-4.51 [facility] Comment on above: Performed By: #### L 500.2500, L100.0100 ####[facility] [address] [place], [address] Absolute Neut 2.8 X10 3/uL Normal 2.0-7.7 [facility] Comment on above: Performed By: #### L 500.2500, L100.0100 ####[facility] [address] [place], [address] Basophils/100 WBC (Bld) 0.8 % Normal 0-1 [facility] Comment on above: Performed By: #### L 500.2500, L100.0100 ####[facility] [address] [place], [address] Eosinophils/100 WBC (Bld) 3.2 % Normal 0-5 [facility] Comment on above: Performed By: #### L 500.2500, L100.0100 ####[facility] [address] [place], [address] Erythrocyte distribution width (RBC) [Ratio] 13.6 % Normal 11.6-14.6 [facility] Comment on above: Performed By: #### L 500.2500, L100.0100 ####[facility] [address] [place], [address] Hematocrit (Bld) [Volume fraction] 33.9 % Low 37-47 [facility] Comment on above: Performed By: #### L 500.2500, L100.0100 ####[facility] [address] [place], [address] Hemoglobin (Bld) [Mass/Vol] 11.0 g/dL Low 12.0-15. 0 [facility] Comment on above: Performed By: #### L 500.2500, L100.0100 ####[facility] [address] [place], [address] IG% 0.400 Normal 0.0-0.9 [facility] Comment on above: Result Comment: IG% - Immature Granulocytes (promyelocytes, myelocytes andmetamyelocytes) > 1% indicates that a LEFT SHIFT is Present. Performed By: #### L 500.2500, L100.0100 ####[facility] [address] [place], [address] Lymphocytes/100 WBC (Bld) 26.2 % Normal 19-41 [facility] Comment on above: Performed By: #### L 500.2500, L100.0100 ####[facility] [address] [place], [address] MCH (RBC) [Entitic mass] 32.2 pg High 27.0-32.0 [facility] Comment on above: Performed By: #### L 500.2500, L100.0100 ####[facility] [address] [place], [address] MCHC (RBC) [Mass/Vol] 32.4 g/dL Normal 32-36 [facility] Comment on above: Performed By: #### L 500.2500, L100.0100 ####[facility] [address] [place], [address] MCV (RBC) [Entitic vol] 99.1 fL High 81-99 [facility] Comment on above: Performed By: #### L 500.2500, L100.0100 ####[facility] [address] [place], [address] Monocytes/100 WBC (Bld) 12.4 % High 0-10 [facility] Comment on above: Performed By: #### L 500.2500, L100.0100 ####[facility] [address] [place], [address] Neutrophils/100 WBC (Bld) 57.0 % Normal 47-70 [facility] Comment on above: Performed By: #### L 500.2500, L100.0100 ####[facility] [address] [place], [address] Nucleated RBC (Bld) [#/Vol] 0 10*3/uL Normal 0-5 [facility] Comment on above: Performed By: #### L 500.2500, L100.0100 ####[facility] [address] [place], [address] Platelet mean volume (Bld) [Entitic vol] 9.3 fL Normal 6.2-12.0 [facility] Comment on above: Performed By: #### L 500.2500, L100.0100 ####[facility] [address] [place], [address] Platelets (Bld) [#/Vol] 196 10*3/uL Normal 150-450 [facility] Comment on above: Performed By: #### L 500.2500, L100.0100 ####[facility] [address] [place], [address] RBC (Bld) [#/Vol] 3.42 10*6/uL Low 4.2-5.4 [facility] Comment on above: Performed By: #### L 500.2500, L100.0100 ####[facility] [address] [place], [address] RDW SD 49.5 fl High 35.1-43.9 [facility] Comment on above: Performed By: #### L 500.2500, L100.0100 ####[facility] [address] [place], [address] WBC (Bld) [#/Vol] 4.9 10*3/uL Normal 4.4-11.0 [facility] Comment on above: Performed By: #### L 500.2500, L100.0100 ####[facility] [address] [place], [address] COVID 19 AG RAPID (RN SANTOSH T)on 05-12-2024 SARS-CoV-2 (COVID-19) RNA DALILA+probe Ql (Unsp spec) Normal [facility] Comment on above: Performed By: #### M 100.505 ####[facility] [address] [place], [address] COVID-19 virus antigen assay Ordered By: Michael Snowden on 05-12-2024 SARS-CoV-2 (COVID-19) Ag IA.rapid Ql (Resp) [facility] SARS-CoV-2 (COVID-19) Ag IA. rapid Ql (Resp)Ordered By: Michael Snowden on 05-12-2024 SARS-CoV-2 Antigen (Rapid) [facility] Basic Metabolic Profile (BMP )on 05-07-2024 BUN/CRE 23.5 RATIO High 10-20 [facility] Comment on above: Performed By: #### L 500.2500, L100.0100 ####[facility] [address] [place], [address] CA,Total 8.8 mg/dL Normal 8.5-10.1 [facility] Comment on above: Performed By: #### L 500.2500, L100.0100 ####[facility] [address] [place], [address] Chloride [Moles/Vol] 110 mmol/L High 98-[address] [facility] Comment on above: Performed By: #### L 500.2500, L100.0100 ####[facility] [address] [place], [address] CO2 [Moles/Vol] 22.0 mmol/L Normal 21.0-32.0 [facility] Comment on above: Performed By: #### L 500.2500, L100.0100 ####[facility] [address] [place], [address] Creatinine [Mass/Vol] 0.64 mg/dL Normal 0.55-1.02 [facility] Comment on above: Result Comment: The validity of the calculated GFR GFRAA in patients over70 years has not been determined. Clinical correlation isessential. Performed By: #### L 500.2500, L100.0100 ####[facility] [address] [place], [address] ECRCL 50.29 ml/min Normal [facility] Comment on above: Performed By: #### L 500.2500, L100.0100 ####[facility] [address] [place], [address] EST GFR - AA 116 mL/min Normal >60 [facility] Comment on above: Result Comment: Afri can [place] GFR Calc Performed By: #### L 500.2500, L100.0100 ####[facility] [address] [place], [address] GAP 10 Normal 5-15 [facility] Comment on above: Performed By: #### L 500.2500, L100.0100 ####[facility] [address] [place], [address] GFR/1.73 sq M.predicted among non-blacks MDRD (S/P/Bld) [Vol rate/Area] 96 mL/min/{1.73_m2} Normal >60 [facility] Comment on above: Result Comment: Non- GFR Calc Performed By: #### L 500.2500, L100.0100 ####[facility] [address] [place], [address] Glucose [Mass/Vol] 94 mg/dL Normal 74-106 [facility] Comment on above: Performed By: #### L 500.2500, L100.0100 ####[facility] [address] [place], [address] Potassium [Moles/Vol] 4.1 mmol/L Normal 3.5-5.1 [facility] Comment on above: Performed By: #### L 500.2500, L100.0100 ####[facility] [address] [place], [address] Sodium [Moles/Vol] 142 mmol/L Normal 136-145 [facility] Comment on above: Performed By: #### L 500.2500, L100.0100 ####[facility] [address] [place], [address] Urea nitrogen [Mass/Vol] 15 mg/dL Normal 7-18 [facility] Comment on above: Performed By: #### L 500.2500, L100.0100 ####[facility] [address] [place], [address] CBC W/Diff, Automatedon 02-0 7-2025 Absolute Lymph 1.20 X10 3/uL Normal 0.83-4.51 [facility] Comment on above: Performed By: #### L 500.2500, L100.0100 ####[facility] [address] [place], [address] Absolute Neut 2.9 X10 3/uL Normal 2.0-7.7 [facility] Comment on above: Performed By: #### L 500.2500, L100.0100 ####[facility] [address] [place], [address] Basophils/100 WBC (Bld) 0.6 % Normal 0-1 [facility] Comment on above: Performed By: #### L 500.2500, L100.0100 ####[facility] [address] [place], [address] Eosinophils/100 WBC (Bld) 3.0 % Normal 0-5 [facility] Comment on above: Performed By: #### L 500.2500, L100.0100 ####[facility] [address] [place], [address] Erythrocyte distribution width (RBC) [Ratio] 13.7 % Normal 11.6-14.6 [facility] Comment on above: Performed By: #### L 500.2500, L100.0100 ####[facility] [address] [place], [address] Hematocrit (Bld) [Volume fraction] 35.3 % Low 37-47 [facility] Comment on above: Performed By: #### L 500.2500, L100.0100 ####[facility] [address] [place], [address] Hemoglobin (Bld) [Mass/Vol] 11.3 g/dL Low 12.0-15. 0 [facility] Comment on above: Performed By: #### L 500.2500, L100.0100 ####[facility] [address] [place], [address] IG% 0.200 Normal 0.0-0.9 [facility] Comment on above: Result Comment: IG% - Immature Granulocytes (promyelocytes, myelocytes andmetamyelocytes) > 1% indicates that a LEFT SHIFT is Present. Performed By: #### L 500.2500, L100.0100 ####[facility] [address] [place], [address] Lymphocytes/100 WBC (Bld) 25.4 % Normal 19-41 [facility] Comment on above: Performed By: #### L 500.2500, L100.0100 ####[facility] [address] [place], [address] MCH (RBC) [Entitic mass] 31.7 pg Normal 27.0-32.0 [facility] Comment on above: Performed By: #### L 500.2500, L100.0100 ####[facility] [address] [place], [address] MCHC (RBC) [Mass/Vol] 32.0 g/dL Normal 32-36 [facility] Comment on above: Performed By: #### L 500.2500, L100.0100 ####[facility] [address] [place], [address] MCV (RBC) [Entitic vol] 98.9 fL Normal 81-99 [facility] Comment on above: Performed By: #### L 500.2500, L100.0100 ####[facility] [address] [place], [address] Monocytes/100 WBC (Bld) 10.2 % High 0-10 [facility] Comment on above: Performed By: #### L 500.2500, L100.0100 ####[facility] [address] [place], [address] Neutrophils/100 WBC (Bld) 60.6 % Normal 47-70 [facility] Comment on above: Performed By: #### L 500.2500, L100.0100 ####[facility] [address] [place], [address] Nucleated RBC (Bld) [#/Vol] 0 10*3/uL Normal 0-5 [facility] Comment on above: Performed By: #### L 500.2500, L100.0100 ####[facility] [address] [place], [address] Platelet mean volume (Bld) [Entitic vol] 8.9 fL Normal 6.2-12.0 [facility] Comment on above: Performed By: #### L 500.2500, L100.0100 ####[facility] [address] [place], [address] Platelets (Bld) [#/Vol] 208 10*3/uL Normal 150-450 [facility] Comment on above: Performed By: #### L 500.2500, L100.0100 ####[facility] [address] [place], [address] RBC (Bld) [#/Vol] 3.57 10*6/uL Low 4.2-5.4 [facility] Comment on above: Performed By: #### L 500.2500, L100.0100 ####[facility] [address] [place], [address] RDW SD 50.4 fl High 35.1-43.9 [facility] Comment on above: Performed By: #### L 500.2500, L100.0100 ####[facility] [address] [place], [address] WBC (Bld) [#/Vol] 4.7 10*3/uL Normal 4.4-11.0 [facility] Comment on above: Performed By: #### L 500.2500, L100.0100 ####[facility] [address] [place], [address] Basic Metabolic Profile (BMP )on 04-30-2024 BUN/CRE 28.8 RATIO High 10-20 [facility] Comment on above: Performed By: #### L 100.0100, L500.2500 ####[facility] [address] [place], [address] CA,Total 8.9 mg/dL Normal 8.5-10.1 [facility] Comment on above: Performed By: #### L 100.0100, L500.2500 ####[facility] [address] [place], [address] Chloride [Moles/Vol] 112 mmol/L High 98-[address] [facility] Comment on above: Performed By: #### L 100.0100, L500.2500 ####[facility] [address] [place], [address] CO2 [Moles/Vol] 22.0 mmol/L Normal 21.0-32.0 [facility] Comment on above: Performed By: #### L 100.0100, L500.2500 ####[facility] [address] [place], [address] Creatinine [Mass/Vol] 0.73 mg/dL Normal 0.55-1.02 [facility] Comment on above: Result Comment: The validity of the calculated GFR GFRAA in patients over70 years has not been determined. Clinical correlation isessential. Performed By: #### L 100.0100, L500.2500 ####[facility] [address] [place], [address] ECRCL 50.34 ml/min Normal [facility] Comment on above: Performed By: #### L 100.0100, L500.2500 ####[facility] [address] [place], [address] EST GFR - AA 99 mL/min Normal >60 [facility] Comment on above: Result Comment: Afri can Tanzanian GFR Calc Performed By: #### L 100.0100, L500.2500 ####[facility] [address] [place], [address] GAP 5 Normal 5-15 [facility] Comment on above: Performed By: #### L 100.0100, L500.2500 ####[facility] [address] [place], [address] GFR/1.73 sq M.predicted among non-blacks MDRD (S/P/Bld) [Vol rate/Area] 82 mL/min/{1.73_m2} Normal >60 [facility] Comment on above: Result Comment: Non- GFR Calc Performed By: #### L 100.0100, L500.2500 ####[facility] [address] [place], [address] Glucose [Mass/Vol] 96 mg/dL Normal 74-106 [facility] Comment on above: Performed By: #### L 100.0100, L500.2500 ####[facility] [address] [place], [address] Potassium [Moles/Vol] 4.3 mmol/L Normal 3.5-5.1 [facility] Comment on above: Performed By: #### L 100.0100, L500.2500 ####[facility] [address] [place], [address] Sodium [Moles/Vol] 140 mmol/L Normal 136-145 [facility] Comment on above: Performed By: #### L 100.0100, L500.2500 ####[facility] [address] [place], [address] Urea nitrogen [Mass/Vol] 21 mg/dL High 7-18 [facility] Comment on above: Performed By: #### L 100.0100, L500.2500 ####[facility] [address] [place], [address] CBC W/Diff, Automatedon 01-3 -2024 Absolute Lymph 1.28 X10 3/uL Normal 0.83-4.51 [facility] Comment on above: Performed By: #### L 100.0100, L500.2500 ####[facility] [address] [place], [address] Absolute Neut 3.9 X10 3/uL Normal 2.0-7.7 [facility] Comment on above: Performed By: #### L 100.0100, L500.2500 ####[facility] [address] [place], [address] Basophils/100 WBC (Bld) 1.0 % Normal 0-1 [facility] Comment on above: Performed By: #### L 100.0100, L500.2500 ####[facility] [address] [place], [address] Eosinophils/100 WBC (Bld) 2.2 % Normal 0-5 [facility] Comment on above: Performed By: #### L 100.0100, L500.2500 ####[facility] [address] [place], [address] Erythrocyte distribution width (RBC) [Ratio] 13.9 % Normal 11.6-14.6 [facility] Comment on above: Performed By: #### L 100.0100, L500.2500 ####[facility] [address] [place], [address] Hematocrit (Bld) [Volume fraction] 36.1 % Low 37-47 [facility] Comment on above: Performed By: #### L 100.0100, L500.2500 ####[facility] [address] [place], [address] Hemoglobin (Bld) [Mass/Vol] 11.9 g/dL Low 12.0-15. 0 [facility] Comment on above: Performed By: #### L 100.0100, L500.2500 ####[facility] [address] [place], [address] IG% 0.500 Normal 0.0-0.9 [facility] Comment on above: Result Comment: IG% - Immature Granulocytes (promyelocytes, myelocytes andmetamyelocytes) > 1% indicates that a LEFT SHIFT is Present. Performed By: #### L 100.0100, L500.2500 ####[facility] [address] [place], [address] Lymphocytes/100 WBC (Bld) 21.3 % Normal 19-41 [facility] Comment on above: Performed By: #### L 100.0100, L500.2500 ####[facility] [address] [place], [address] MCH (RBC) [Entitic mass] 32.4 pg High 27.0-32.0 [facility] Comment on above: Performed By: #### L 100.0100, L500.2500 ####[facility] [address] [place], [address] MCHC (RBC) [Mass/Vol] 33.0 g/dL Normal 32-36 [facility] Comment on above: Performed By: #### L 100.0100, L500.2500 ####[facility] [address] [place], [address] MCV (RBC) [Entitic vol] 98.4 fL Normal 81-99 [facility] Comment on above: Performed By: #### L 100.0100, L500.2500 ####[facility] [address] [place], [address] Monocytes/100 WBC (Bld) 10.3 % High 0-10 [facility] Comment on above: Performed By: #### L 100.0100, L500.2500 ####[facility] [address] [place], [address] Neutrophils/100 WBC (Bld) 64.7 % Normal 47-70 [facility] Comment on above: Performed By: #### L 100.0100, L500.2500 ####[facility] [address] [place], [address] Nucleated RBC (Bld) [#/Vol] 0 10*3/uL Normal 0-5 [facility] Comment on above: Performed By: #### L 100.0100, L500.2500 ####[facility] [address] [place], [address] Platelet mean volume (Bld) [Entitic vol] 8.8 fL Normal 6.2-12.0 [facility] Comment on above: Performed By: #### L 100.0100, L500.2500 ####[facility] [address] [place], [address] Platelets (Bld) [#/Vol] 265 10*3/uL Normal 150-450 [facility] Comment on above: Performed By: #### L 100.0100, L500.2500 ####[facility] [address] [place], [address] RBC (Bld) [#/Vol] 3.67 10*6/uL Low 4.2-5.4 [facility] Comment on above: Performed By: #### L 100.0100, L500.2500 ####[facility] [address] [place], [address] RDW SD 50.2 fl High 35.1-43.9 [facility] Comment on above: Performed By: #### L 100.0100, L500.2500 ####[facility] [address] [place], [address] WBC (Bld) [#/Vol] 6.0 10*3/uL Normal 4.4-11.0 [facility] Comment on above: Performed By: #### L 100.0100, L500.2500 ####[facility] [address] [place], [address] Basic Metabolic Profile (BMP )on 04-23-2024 BUN/CRE 33.6 RATIO High 10-20 [facility] Comment on above: Performed By: #### L 100.0100, L500.2500 ####[facility] [address] [place], [address] CA,Total 8.8 mg/dL Normal 8.5-10.1 [facility] Comment on above: Performed By: #### L 100.0100, L500.2500 ####[facility] [address] [place], [address] Chloride [Moles/Vol] 108 mmol/L High 98-[address] [facility] Comment on above: Performed By: #### L 100.0100, L500.2500 ####[facility] [address] [place], [address] CO2 [Moles/Vol] 22.0 mmol/L Normal 21.0-32.0 [facility] Comment on above: Performed By: #### L 100.0100, L500.2500 ####[facility] [address] [place], [address] Creatinine [Mass/Vol] 0.68 mg/dL Normal 0.55-1.02 [facility] Comment on above: Result Comment: The validity of the calculated GFR GFRAA in patients over70 years has not been determined. Clinical correlation isessential. Performed By: #### L 100.0100, L500.2500 ####[facility] [address] [place], [address] ECRCL 50.54 ml/min Normal [facility] Comment on above: Performed By: #### L 100.0100, L500.2500 ####[facility] [address] [place], [address] EST GFR - AA 107 mL/min Normal >60 [facility] Comment on above: Result Comment: Afri can Tanzanian GFR Calc Performed By: #### L 100.0100, L500.2500 ####[facility] [address] [place], [address] GAP 6 Normal 5-15 [facility] Comment on above: Performed By: #### L 100.0100, L500.2500 ####[facility] [address] [place], [address] GFR/1.73 sq M.predicted among non-blacks MDRD (S/P/Bld) [Vol rate/Area] 88 mL/min/{1.73_m2} Normal >60 [facility] Comment on above: Result Comment: Non- GFR Calc Performed By: #### L 100.0100, L500.2500 ####[facility] [address] [place], [address] Glucose [Mass/Vol] 97 mg/dL Normal 74-106 [facility] Comment on above: Performed By: #### L 100.0100, L500.2500 ####[facility] [address] [place], [address] Potassium [Moles/Vol] 4.6 mmol/L Normal 3.5-5.1 [facility] Comment on above: Performed By: #### L 100.0100, L500.2500 ####[facility] [address] [place], [address] Sodium [Moles/Vol] 136 mmol/L Normal 136-145 [facility] Comment on above: Performed By: #### L 100.0100, L500.2500 ####[facility] [address] [place], [address] Urea nitrogen [Mass/Vol] 23 mg/dL High 7-18 [facility] Comment on above: Performed By: #### L 100.0100, L500.2500 ####[facility] [address] [place], [address] CBC W/Diff, Automatedon 04-01 Absolute Lymph 1.47 X10 3/uL Normal 0.83-4.51 [facility] Comment on above: Performed By: #### L 100.0100, L500.2500 ####[facility] [address] [place], [address] Absolute Neut 4.2 X10 3/uL Normal 2.0-7.7 [facility] Comment on above: Performed By: #### L 100.0100, L500.2500 ####[facility] [address] [place], [address] Basophils/100 WBC (Bld) 0.6 % Normal 0-1 [facility] Comment on above: Performed By: #### L 100.0100, L500.2500 ####[facility] [address] [place], [address] Eosinophils/100 WBC (Bld) 2.1 % Normal 0-5 [facility] Comment on above: Performed By: #### L 100.0100, L500.2500 ####[facility] [address] [place], [address] Erythrocyte distribution width (RBC) [Ratio] 13.2 % Normal 11.6-14.6 [facility] Comment on above: Performed By: #### L 100.0100, L500.2500 ####[facility] [address] [place], [address] Hematocrit (Bld) [Volume fraction] 34.8 % Low 37-47 [facility] Comment on above: Performed By: #### L 100.0100, L500.2500 ####[facility] [address] [place], [address] Hemoglobin (Bld) [Mass/Vol] 11.5 g/dL Low 12.0-15. 0 [facility] Comment on above: Performed By: #### L 100.0100, L500.2500 ####[facility] [address] [place], [address] IG% 2.400 High 0.0-0.9 [facility] Comment on above: Result Comment: IG% - Immature Granulocytes (promyelocytes, myelocytes andmetamyelocytes) > 1% indicates that a LEFT SHIFT is Present. Performed By: #### L 100.0100, L500.2500 ####[facility] [address] [place], [address] Lymphocytes/100 WBC (Bld) 22.0 % Normal 19-41 [facility] Comment on above: Performed By: #### L 100.0100, L500.2500 ####[facility] [address] [place], [address] MCH (RBC) [Entitic mass] 32.5 pg High 27.0-32.0 [facility] Comment on above: Performed By: #### L 100.0100, L500.2500 ####[facility] [address] [place], [address] MCHC (RBC) [Mass/Vol] 33.0 g/dL Normal 32-36 [facility] Comment on above: Performed By: #### L 100.0100, L500.2500 ####[facility] [address] [place], [address] MCV (RBC) [Entitic vol] 98.3 fL Normal 81-99 [facility] Comment on above: Performed By: #### L 100.0100, L500.2500 ####[facility] [address] [place], [address] Monocytes/100 WBC (Bld) 10.3 % High 0-10 [facility] Comment on above: Performed By: #### L 100.0100, L500.2500 ####[facility] [address] [place], [address] Neutrophils/100 WBC (Bld) 62.6 % Normal 47-70 [facility] Comment on above: Performed By: #### L 100.0100, L500.2500 ####[facility] [address] [place], [address] Nucleated RBC (Bld) [#/Vol] 0 10*3/uL Normal 0-5 [facility] Comment on above: Performed By: #### L 100.0100, L500.2500 ####[facility] [address] [place], [address] Platelet mean volume (Bld) [Entitic vol] 9.0 fL Normal 6.2-12.0 [facility] Comment on above: Performed By: #### L 100.0100, L500.2500 ####[facility] [address] [place], [address] Platelets (Bld) [#/Vol] 263 10*3/uL Normal 150-450 [facility] Comment on above: Performed By: #### L 100.0100, L500.2500 ####[facility] [address] [place], [address] RBC (Bld) [#/Vol] 3.54 10*6/uL Low 4.2-5.4 [facility] Comment on above: Performed By: #### L 100.0100, L500.2500 ####[facility] [address] [place], [address] RDW SD 47.7 fl High 35.1-43.9 [facility] Comment on above: Performed By: #### L 100.0100, L500.2500 ####[facility] [address] [place], [address] WBC (Bld) [#/Vol] 6.7 10*3/uL Normal 4.4-11.0 [facility] Comment on above: Performed By: #### L 100.0100, L500.2500 ####[facility] [address] [place], [address] Basic Metabolic Profile (BMP )on 04-19-2024 BUN Normal 7-18 [facility] Comment on above: Result Comment: Canc elled via OM: Order cancelled - Patient discharged Performed By: #### L 100.0500, L500.2500 ####[facility] [address] [place], [address] BUN/CRE Normal 10-20 [facility] Comment on above: Result Comment: Canc elled via OM: Order cancelled - Patient discharged Performed By: #### L 100.0500, L500.2500 ####[facility] [address] [place], [address] CA,Total Normal 8.5-10.1 [facility] Comment on above: Result Comment: Canc elled via OM: Order cancelled - Patient discharged Performed By: #### L 100.0500, L500.2500 ####[facility] [address] [place], [address] CL Normal 98-107 [facility] Comment on above: Result Comment: Canc elled via OM: Order cancelled - Patient discharged Performed By: #### L 100.0500, L500.2500 ####[facility] [address] [place], [address] CO2 Normal 21.0-32.0 [facility] Comment on above: Result Comment: Canc elled via OM: Order cancelled - Patient discharged Performed By: #### L 100.0500, L500.2500 ####[facility] [address] [place], [address] CREAT,SERUM Normal 0.55-1.02 [facility] Comment on above: Result Comment: Canc elled via OM: Order cancelled - Patient discharged Performed By: #### L 100.0500, L500.2500 ####[facility] [address] [place], [address] EST GFR Normal >60 [facility] Comment on above: Result Comment: Canc elled via OM: Order cancelled - Patient discharged Performed By: #### L 100.0500, L500.2500 ####[facility] [address] [place], [address] EST GFR - AA Normal >60 [facility] Comment on above: Result Comment: Canc elled via OM: Order cancelled - Patient discharged Performed By: #### L 100.0500, L500.2500 ####[facility] [address] [place], [address] GAP Normal 5-15 [facility] Comment on above: Result Comment: Canc elled via OM: Order cancelled - Patient discharged Performed By: #### L 100.0500, L500.2500 ####[facility] [address] [place], [address] GLU Normal 74-106 [facility] Comment on above: Result Comment: Canc elled via OM: Order cancelled - Patient discharged Performed By: #### L 100.0500, L500.2500 ####[facility] [address] [place], [address] Potassium Normal 3.5-5.1 [facility] Comment on above: Result Comment: Canc elled via OM: Order cancelled - Patient discharged Performed By: #### L 100.0500, L500.2500 ####[facility] [address] [place], [address] Basic Metabolic Profile (BMP) Normal 136-145 [facility] Comment on above: Result Comment: Canc elled via OM: Order cancelled - Patient discharged Performed By: #### L 100.0500, L500.2500 ####[facility] [address] [place], [address] CBC-Complete Blood Cnt No Di ffon 04-19-2024 HCT Normal 37-47 [facility] Comment on above: Result Comment: Canc elled via OM: Order cancelled - Patient discharged Performed By: #### L 100.0500, L500.2500 ####[facility] [address] [place], [address] HGB Normal 12.0-15.0 [facility] Comment on above: Result Comment: Canc elled via OM: Order cancelled - Patient discharged Performed By: #### L 100.0500, L500.2500 ####[facility] [address] [place], [address] MCH Normal 27.0-32.0 [facility] Comment on above: Result Comment: Canc elled via OM: Order cancelled - Patient discharged Performed By: #### L 100.0500, L500.2500 ####[facility] [address] [place], [address] MCHC Normal 32-36 [facility] Comment on above: Result Comment: Canc elled via OM: Order cancelled - Patient discharged Performed By: #### L 100.0500, L500.2500 ####[facility] [address] [place], [address] MCV Normal 81-99 [facility] Comment on above: Result Comment: Canc elled via OM: Order cancelled - Patient discharged Performed By: #### L 100.0500, L500.2500 ####[facility] [address] [place], [address] PLT Normal 150-450 [facility] Comment on above: Result Comment: Canc elled via OM: Order cancelled - Patient discharged Performed By: #### L 100.0500, L500.2500 ####[facility] [address] [place], [address] RBC Normal 4.2-5.4 [facility] Comment on above: Result Comment: Canc elled via OM: Order cancelled - Patient discharged Performed By: #### L 100.0500, L500.2500 ####[facility] [address] [place], [address] RDW CV Normal 11.6-14.6 [facility] Comment on above: Result Comment: Canc elled via OM: Order cancelled - Patient discharged Performed By: #### L 100.0500, L500.2500 ####[facility] [address] [place], [address] RDW SD Normal 35.1-43.9 [facility] Comment on above: Result Comment: Canc elled via OM: Order cancelled - Patient discharged Performed By: #### L 100.0500, L500.2500 ####[facility] [address] [place], [address] WBC Normal 4.4-11.0 [facility] Comment on above: Result Comment: Canc elled via OM: Order cancelled - Patient discharged Performed By: #### L 100.0500, L500.2500 ####[facility] [address] [place], [address] Basic Metabolic Profile (BMP )on 04-18-2024 BUN Normal 7-18 [facility] Comment on above: Result Comment: Canc elled via OM: Order cancelled - Patient discharged Performed By: #### L 100.0500, L500.2500 ####[facility] [address] [place], [address] BUN/CRE Normal 10-20 [facility] Comment on above: Result Comment: Canc elled via OM: Order cancelled - Patient discharged Performed By: #### L 100.0500, L500.2500 ####[facility] [address] [place], [address] CA,Total Normal 8.5-10.1 [facility] Comment on above: Result Comment: Canc elled via OM: Order cancelled - Patient discharged Performed By: #### L 100.0500, L500.2500 ####[facility] [address] [place], [address] CL Normal 98-107 [facility] Comment on above: Result Comment: Canc elled via OM: Order cancelled - Patient discharged Performed By: #### L 100.0500, L500.2500 ####[facility] [address] [place], [address] CO2 Normal 21.0-32.0 [facility] Comment on above: Result Comment: Canc elled via OM: Order cancelled - Patient discharged Performed By: #### L 100.0500, L500.2500 ####[facility] [address] [place], [address] CREAT,SERUM Normal 0.55-1.02 [facility] Comment on above: Result Comment: Canc elled via OM: Order cancelled - Patient discharged Performed By: #### L 100.0500, L500.2500 ####[facility] [address] [place], [address] EST GFR Normal >60 [facility] Comment on above: Result Comment: Canc elled via OM: Order cancelled - Patient discharged Performed By: #### L 100.0500, L500.2500 ####[facility] [address] [place], [address] EST GFR - AA Normal >60 [facility] Comment on above: Result Comment: Canc elled via OM: Order cancelled - Patient discharged Performed By: #### L 100.0500, L500.2500 ####[facility] [address] [place], [address] GAP Normal 5-15 [facility] Comment on above: Result Comment: Canc elled via OM: Order cancelled - Patient discharged Performed By: #### L 100.0500, L500.2500 ####[facility] [address] [place], [address] GLU Normal 74-106 [facility] Comment on above: Result Comment: Canc elled via OM: Order cancelled - Patient discharged Performed By: #### L 100.0500, L500.2500 ####[facility] [address] [place], [address] Potassium Normal 3.5-5.1 [facility] Comment on above: Result Comment: Canc elled via OM: Order cancelled - Patient discharged Performed By: #### L 100.0500, L500.2500 ####[facility] [address] [place], [address] Basic Metabolic Profile (BMP) Normal 136-145 [facility] Comment on above: Result Comment: Canc elled via OM: Order cancelled - Patient discharged Performed By: #### L 100.0500, L500.2500 ####[facility] [address] [place], [address] CBC-Complete Blood Cnt No Di ffon 01-19-2025 HCT Normal 37-47 [facility] Comment on above: Result Comment: Canc elled via OM: Order cancelled - Patient discharged Performed By: #### L 100.0500, L500.2500 ####[facility] [address] [place], [address] HGB Normal 12.0-15.0 [facility] Comment on above: Result Comment: Canc elled via OM: Order cancelled - Patient discharged Performed By: #### L 100.0500, L500.2500 ####[facility] [address] [place], [address] MCH Normal 27.0-32.0 [facility] Comment on above: Result Comment: Canc elled via OM: Order cancelled - Patient discharged Performed By: #### L 100.0500, L500.2500 ####[facility] [address] [place], [address] MCHC Normal 32-36 [facility] Comment on above: Result Comment: Canc elled via OM: Order cancelled - Patient discharged Performed By: #### L 100.0500, L500.2500 ####[facility] [address] [place], [address] MCV Normal 81-99 [facility] Comment on above: Result Comment: Canc elled via OM: Order cancelled - Patient discharged Performed By: #### L 100.0500, L500.2500 ####[facility] [address] [place], [address] PLT Normal 150-450 [facility] Comment on above: Result Comment: Canc elled via OM: Order cancelled - Patient discharged Performed By: #### L 100.0500, L500.2500 ####[facility] [address] [place], [address] RBC Normal 4.2-5.4 [facility] Comment on above: Result Comment: Canc elled via OM: Order cancelled - Patient discharged Performed By: #### L 100.0500, L500.2500 ####[facility] [address] [place], [address] RDW CV Normal 11.6-14.6 [facility] Comment on above: Result Comment: Canc elled via OM: Order cancelled - Patient discharged Performed By: #### L 100.0500, L500.2500 ####[facility] [address] [place], [address] RDW SD Normal 35.1-43.9 [facility] Comment on above: Result Comment: Canc elled via OM: Order cancelled - Patient discharged Performed By: #### L 100.0500, L500.2500 ####[facility] [address] [place], [address] WBC Normal 4.4-11.0 [facility] Comment on above: Result Comment: Canc elled via OM: Order cancelled - Patient discharged Performed By: #### L 100.0500, L500.2500 ####[facility] [address] [place], [address] Basic Metabolic Profile (BMP )on 04-17-2024 BUN Normal 7-18 [facility] Comment on above: Result Comment: Canc elled via OM: Order cancelled - Patient discharged Performed By: #### L 500.2500, L100.0500 ####[facility] [address] [place], [address] BUN/CRE Normal 10-20 [facility] Comment on above: Result Comment: Canc elled via OM: Order cancelled - Patient discharged Performed By: #### L 500.2500, L100.0500 ####[facility] [address] [place], [address] CA,Total Normal 8.5-10.1 [facility] Comment on above: Result Comment: Canc elled via OM: Order cancelled - Patient discharged Performed By: #### L 500.2500, L100.0500 ####[facility] [address] [place], [address] CL Normal 98-107 [facility] Comment on above: Result Comment: Canc elled via OM: Order cancelled - Patient discharged Performed By: #### L 500.2500, L100.0500 ####[facility] [address] [place], [address] CO2 Normal 21.0-32.0 [facility] Comment on above: Result Comment: Canc elled via OM: Order cancelled - Patient discharged Performed By: #### L 500.2500, L100.0500 ####[facility] [address] [place], [address] CREAT,SERUM Normal 0.55-1.02 [facility] Comment on above: Result Comment: Canc elled via OM: Order cancelled - Patient discharged Performed By: #### L 500.2500, L100.0500 ####[facility] [address] [place], [address] EST GFR Normal >60 [facility] Comment on above: Result Comment: Canc elled via OM: Order cancelled - Patient discharged Performed By: #### L 500.2500, L100.0500 ####[facility] [address] [place], [address] EST GFR - AA Normal >60 [facility] Comment on above: Result Comment: Canc elled via OM: Order cancelled - Patient discharged Performed By: #### L 500.2500, L100.0500 ####[facility] [address] [place], [address] GAP Normal 5-15 [facility] Comment on above: Result Comment: Canc elled via OM: Order cancelled - Patient discharged Performed By: #### L 500.2500, L100.0500 ####[facility] [address] [place], [address] GLU Normal 74-106 [facility] Comment on above: Result Comment: Canc elled via OM: Order cancelled - Patient discharged Performed By: #### L 500.2500, L100.0500 ####[facility] [address] [place], [address] Potassium Normal 3.5-5.1 [facility] Comment on above: Result Comment: Canc elled via OM: Order cancelled - Patient discharged Performed By: #### L 500.2500, L100.0500 ####[facility] [address] [place], [address] Basic Metabolic Profile (BMP) Normal 136-145 [facility] Comment on above: Result Comment: Canc elled via OM: Order cancelled - Patient discharged Performed By: #### L 500.2500, L100.0500 ####[facility] [address] [place], [address] BUN/CRE 36.8 RATIO High 10-20 [facility] Comment on above: Performed By: #### L 100.0100, L500.2500 ####[facility] [address] [place], [address] CA,Total 8.9 mg/dL Normal 8.5-10.1 [facility] Comment on above: Performed By: #### L 100.0100, L500.2500 ####[facility] [address] [place], [address] Chloride [Moles/Vol] 106 mmol/L Normal 98-[address] [facility] Comment on above: Performed By: #### L 100.0100, L500.2500 ####[facility] [address] [place], [address] CO2 [Moles/Vol] 23.0 mmol/L Normal 21.0-32.0 [facility] Comment on above: Performed By: #### L 100.0100, L500.2500 ####[facility] [address] [place], [address] Creatinine [Mass/Vol] 0.71 mg/dL Normal 0.55-1.02 [facility] Comment on above: Result Comment: The validity of the calculated GFR GFRAA in patients over70 years has not been determined. Clinical correlation isessential. Performed By: #### L 100.0100, L500.2500 ####[facility] [address] [place], [address] ECRCL 50.11 ml/min Normal [facility] Comment on above: Performed By: #### L 100.0100, L500.2500 ####[facility] [address] [place], [address] EST GFR - AA 103 mL/min Normal >60 [facility] Comment on above: Result Comment: Afri can Tanzanian GFR Calc Performed By: #### L 100.0100, L500.2500 ####[facility] [address] [place], [address] GAP 6 Normal 5-15 [facility] Comment on above: Performed By: #### L 100.0100, L500.2500 ####[facility] [address] [place], [address] GFR/1.73 sq M.predicted among non-blacks MDRD (S/P/Bld) [Vol rate/Area] 85 mL/min/{1.73_m2} Normal >60 [facility] Comment on above: Result Comment: Non- GFR Calc Performed By: #### L 100.0100, L500.2500 ####[facility] [address] [place], [address] Glucose [Mass/Vol] 108 mg/dL High 74-106 [facility] Comment on above: Result Comment: Fast ing Glucose result from 100 to 125 mg/dLsuggests IMPAIRED HOMEOSTASIS per A.D.A. criteria. Performed By: #### L 100.0100, L500.2500 ####[facility] [address] [place], [address] Potassium [Moles/Vol] 4.2 mmol/L Normal 3.5-5.1 [facility] Comment on above: Performed By: #### L 100.0100, L500.2500 ####[facility] [address] [place], [address] Sodium [Moles/Vol] 135 mmol/L Low 136-145 [facility] Comment on above: Performed By: #### L 100.0100, L500.2500 ####[facility] [address] [place], [address] Urea nitrogen [Mass/Vol] 26 mg/dL High 7-18 [facility] Comment on above: Performed By: #### L 100.0100, L500.2500 ####[facility] [address] [place], [address] CBC W/Diff, Automatedon 03-31 Absolute Lymph 1.39 X10 3/uL Normal 0.83-4.51 [facility] Comment on above: Performed By: #### L 100.0100, L500.2500 ####[facility] [address] [place], [address] Absolute Neut 5.3 X10 3/uL Normal 2.0-7.7 [facility] Comment on above: Performed By: #### L 100.0100, L500.2500 ####[facility] [address] [place], [address] Basophils/100 WBC (Bld) 0.3 % Normal 0-1 [facility] Comment on above: Performed By: #### L 100.0100, L500.2500 ####[facility] [address] [place], [address] Eosinophils/100 WBC (Bld) 0.3 % Normal 0-5 [facility] Comment on above: Performed By: #### L 100.0100, L500.2500 ####[facility] [address] [place], [address] Erythrocyte distribution width (RBC) [Ratio] 13.0 % Normal 11.6-14.6 [facility] Comment on above: Performed By: #### L 100.0100, L500.2500 ####[facility] [address] [place], [address] Hematocrit (Bld) [Volume fraction] 35.2 % Low 37-47 [facility] Comment on above: Performed By: #### L 100.0100, L500.2500 ####[facility] [address] [place], [address] Hemoglobin (Bld) [Mass/Vol] 11.4 g/dL Low 12.0-15. 0 [facility] Comment on above: Performed By: #### L 100.0100, L500.2500 ####[facility] [address] [place], [address] IG% 0.300 Normal 0.0-0.9 [facility] Comment on above: Result Comment: IG% - Immature Granulocytes (promyelocytes, myelocytes andmetamyelocytes) > 1% indicates that a LEFT SHIFT is Present. Performed By: #### L 100.0100, L500.2500 ####[facility] [address] [place], [address] Lymphocytes/100 WBC (Bld) 18.8 % Low 19-41 [facility] Comment on above: Performed By: #### L 100.0100, L500.2500 ####[facility] [address] [place], [address] MCH (RBC) [Entitic mass] 31.7 pg Normal 27.0-32.0 [facility] Comment on above: Performed By: #### L 100.0100, L500.2500 ####[facility] [address] [place], [address] MCHC (RBC) [Mass/Vol] 32.4 g/dL Normal 32-36 [facility] Comment on above: Performed By: #### L 100.0100, L500.2500 ####[facility] [address] [place], [address] MCV (RBC) [Entitic vol] 97.8 fL Normal 81-99 [facility] Comment on above: Performed By: #### L 100.0100, L500.2500 ####[facility] [address] [place], [address] Monocytes/100 WBC (Bld) 8.3 % Normal 0-10 [facility] Comment on above: Performed By: #### L 100.0100, L500.2500 ####[facility] [address] [place], [address] Neutrophils/100 WBC (Bld) 72.0 % High 47-70 [facility] Comment on above: Performed By: #### L 100.0100, L500.2500 ####[facility] [address] [place], [address] Nucleated RBC (Bld) [#/Vol] 0 10*3/uL Normal 0-5 [facility] Comment on above: Performed By: #### L 100.0100, L500.2500 ####[facility] [address] [place], [address] Platelet mean volume (Bld) [Entitic vol] 9.0 fL Normal 6.2-12.0 [facility] Comment on above: Performed By: #### L 100.0100, L500.2500 ####[facility] [address] [place], [address] Platelets (Bld) [#/Vol] 261 10*3/uL Normal 150-450 [facility] Comment on above: Performed By: #### L 100.0100, L500.2500 ####[facility] [address] [place], [address] RBC (Bld) [#/Vol] 3.60 10*6/uL Low 4.2-5.4 [facility] Comment on above: Performed By: #### L 100.0100, L500.2500 ####[facility] [address] [place], [address] RDW SD 46.8 fl High 35.1-43.9 [facility] Comment on above: Performed By: #### L 100.0100, L500.2500 ####[facility] [address] [place], [address] WBC (Bld) [#/Vol] 7.4 10*3/uL Normal 4.4-11.0 [facility] Comment on above: Performed By: #### L 100.0100, L500.2500 ####[facility] [address] [place], [address] CBC-Complete Blood Cnt No Di ffon 04-17-2024 HCT Normal 37-47 [facility] Comment on above: Result Comment: Canc elled via OM: Order cancelled - Patient discharged Performed By: #### L 500.2500, L100.0500 ####[facility] [address] [place], [address] HGB Normal 12.0-15.0 [facility] Comment on above: Result Comment: Canc elled via OM: Order cancelled - Patient discharged Performed By: #### L 500.2500, L100.0500 ####[facility] [address] [place], [address] MCH Normal 27.0-32.0 [facility] Comment on above: Result Comment: Canc elled via OM: Order cancelled - Patient discharged Performed By: #### L 500.2500, L100.0500 ####[facility] [address] [place], [address] MCHC Normal 32-36 [facility] Comment on above: Result Comment: Canc elled via OM: Order cancelled - Patient discharged Performed By: #### L 500.2500, L100.0500 ####[facility] [address] [place], [address] MCV Normal 81-99 [facility] Comment on above: Result Comment: Canc elled via OM: Order cancelled - Patient discharged Performed By: #### L 500.2500, L100.0500 ####[facility] [address] [place], [address] PLT Normal 150-450 [facility] Comment on above: Result Comment: Canc elled via OM: Order cancelled - Patient discharged Performed By: #### L 500.2500, L100.0500 ####[facility] [address] [place], [address] RBC Normal 4.2-5.4 [facility] Comment on above: Result Comment: Canc elled via OM: Order cancelled - Patient discharged Performed By: #### L 500.2500, L100.0500 ####[facility] [address] [place], [address] RDW CV Normal 11.6-14.6 [facility] Comment on above: Result Comment: Canc elled via OM: Order cancelled - Patient discharged Performed By: #### L 500.2500, L100.0500 ####[facility] [address] [place], [address] RDW SD Normal 35.1-43.9 [facility] Comment on above: Result Comment: Canc elled via OM: Order cancelled - Patient discharged Performed By: #### L 500.2500, L100.0500 ####[facility] [address] [place], [address] WBC Normal 4.4-11.0 [facility] Comment on above: Result Comment: Canc elled via OM: Order cancelled - Patient discharged Performed By: #### L 500.2500, L100.0500 ####[facility] [address] [place], [address] Basic Metabolic Profile (BMP )on 04-16-2024 BUN/CRE 31.0 RATIO High 10-20 [facility] Comment on above: Performed By: #### L 500.2500, L100.0500 ####[facility] [address] [place], [address] CA,Total 9.3 mg/dL Normal 8.5-10.1 [facility] Comment on above: Performed By: #### L 500.2500, L100.0500 ####[facility] [address] [place], [address] Chloride [Moles/Vol] 107 mmol/L Normal 98-[address] [facility] Comment on above: Performed By: #### L 500.2500, L100.0500 ####[facility] [address] [place], [address] CO2 [Moles/Vol] 25.0 mmol/L Normal 21.0-32.0 [facility] Comment on above: Performed By: #### L 500.2500, L100.0500 ####[facility] [address] [place], [address] Creatinine [Mass/Vol] 0.68 mg/dL Normal 0.55-1.02 [facility] Comment on above: Result Comment: The validity of the calculated GFR GFRAA in patients over70 years has not been determined. Clinical correlation isessential. Performed By: #### L 500.2500, L100.0500 ####[facility] [address] [place], [address] ECRCL 50.81 ml/min Normal [facility] Comment on above: Performed By: #### L 500.2500, L100.0500 ####[facility] [address] [place], [address] EST GFR - AA 108 mL/min Normal >60 [facility] Comment on above: Result Comment: Afri can Tanzanian GFR Calc Performed By: #### L 500.2500, L100.0500 ####[facility] [address] [place], [address] GAP 5 Normal 5-15 [facility] Comment on above: Performed By: #### L 500.2500, L100.0500 ####[facility] [address] [place], [address] GFR/1.73 sq M.predicted among non-blacks MDRD (S/P/Bld) [Vol rate/Area] 89 mL/min/{1.73_m2} Normal >60 [facility] Comment on above: Result Comment: Non- GFR Calc Performed By: #### L 500.2500, L100.0500 ####[facility] [address] [place], [address] Glucose [Mass/Vol] 113 mg/dL High 74-106 [facility] Comment on above: Result Comment: Fast ing Glucose result from 100 to 125 mg/dLsuggests IMPAIRED HOMEOSTASIS per A.D.A. criteria. Performed By: #### L 500.2500, L100.0500 ####[facility] [address] [place], [address] Potassium [Moles/Vol] 4.5 mmol/L Normal 3.5-5.1 [facility] Comment on above: Performed By: #### L 500.2500, L100.0500 ####[facility] [address] [place], [address] Sodium [Moles/Vol] 137 mmol/L Normal 136-145 [facility] Comment on above: Performed By: #### L 500.2500, L100.0500 ####[facility] [address] [place], [address] Urea nitrogen [Mass/Vol] 21 mg/dL High 7-18 [facility] Comment on above: Performed By: #### L 500.2500, L100.0500 ####[facility] [address] [place], [address] Blood urea nitrogen (BUN)/cr eatinine ratioOrdered By: Lesli Watkins on 04-16-2024 Urea nitrogen/Creatinine [Mass ratio] 31.0 mg/mg High 10-20 [facility] Blood urea nitrogen (BUN)/creatinine ratio 31.0 RATIO High 10-20 [facility] CBC-Complete Blood Cnt No Di ffon 04-16-2024 Erythrocyte distribution width (RBC) [Ratio] 13.0 % Normal 11.6-14.6 [facility] Comment on above: Performed By: #### L 500.2500, L100.0500 ####[facility] [address] [place], [address] Hematocrit (Bld) [Volume fraction] 36.8 % Low 37-47 [facility] Comment on above: Performed By: #### L 500.2500, L100.0500 ####[facility] [address] [place], [address] Hemoglobin (Bld) [Mass/Vol] 11.9 g/dL Low 12.0-15. 0 [facility] Comment on above: Performed By: #### L 500.2500, L100.0500 ####[facility] [address] [place], [address] MCH (RBC) [Entitic mass] 31.6 pg Normal 27.0-32.0 [facility] Comment on above: Performed By: #### L 500.2500, L100.0500 ####[facility] [address] [place], [address] MCHC (RBC) [Mass/Vol] 32.3 g/dL Normal 32-36 [facility] Comment on above: Performed By: #### L 500.2500, L100.0500 ####[facility] [address] [place], [address] MCV (RBC) [Entitic vol] 97.6 fL Normal 81-99 [facility] Comment on above: Performed By: #### L 500.2500, L100.0500 ####[facility] [address] [place], [address] Platelet mean volume (Bld) [Entitic vol] 8.8 fL Normal 6.2-12.0 [facility] Comment on above: Performed By: #### L 500.2500, L100.0500 ####[facility] [address] [place], [address] Platelets (Bld) [#/Vol] 252 10*3/uL Normal 150-450 [facility] Comment on above: Performed By: #### L 500.2500, L100.0500 ####[facility] [address] [place], [address] RBC (Bld) [#/Vol] 3.77 10*6/uL Low 4.2-5.4 [facility] Comment on above: Performed By: #### L 500.2500, L100.0500 ####[facility] [address] [place], [address] RDW SD 46.3 fl High 35.1-43.9 [facility] Comment on above: Performed By: #### L 500.2500, L100.0500 ####[facility] [address] [place], [address] WBC (Bld) [#/Vol] 8.7 10*3/uL Normal 4.4-11.0 [facility] Comment on above: Performed By: #### L 500.2500, L100.0500 ####[facility] [address] [place], [address] Calcium [Mass/Vol]Ordered By : Lesli Watkins on 04-16-2024 Serum or plasma calcium measurement (mass/volume) 9.3 mg/dL 8.5-10.1 [facility] Carbon dioxide measurementOr dered By: Lesli Watkins on 04-16-2024 CO2 [Moles/Vol] 25.0 mmol/L 21.0-32.0 [facility] Carbon dioxide measurement 25.0 mmol/L 21.0-32. 0 [facility] Chloride measurementOrdered By: Lesli Watkins on 04-16-2024 Chloride [Moles/Vol] 107 mmol/L 98-[address] [facility] Chloride measurement 107 mmol/L 98-[address] [facility] Creatinine [Mass/Vol]Ordered By: Lesli Watkins on 04-16-2024 Serum or plasma creatinine measurement (mass/volume) 0.68 mg/dL 0.55-1.02 [facility] Erythrocyte distribution wid th (RBC) [Ratio]Ordered By: Lesli Watkins on 04-16-2024 Erythrocyte distribution width ratio 13.0 % 11.6-14.6 [facility] Erythrocyte distribution width (RBC) [Entitic vol] 46.3 fL High 35.1-43.9 [facility] Erythrocyte distribution width standard deviation 46.3 fl High 35.1-43.9 [facility] Erythrocyte distribution wid th ratioOrdered By: Lesli Watkins on 04-16-2024 Erythrocyte distribution width (RBC) [Ratio] 13.0 % 11.6-14.6 [facility] Erythrocyte distribution wid th standard deviationOrdered By: Lesli Watkins on 04-16-2024 Erythrocyte distribution width (RBC) [Ratio] 46.3 fl High 35.1-43.9 [facility] Estimated glomerular filtrat ion rate (GFR) AmericanOrdered By: Lesli Watkins on 04-16-2024 Estimated GFR (MDRD) Amer 108 mL/min >60 [facility] Comment on above: GFR Calc Estimated glomerular filtration rate (GFR) 108 mL/min >60 [facility] Estimation of creatinine bharat aranceOrdered By: Lesli Watkins on 04-16-2024 Estimated Creatinine Clearance Calc 50.81 ml/min [facility] Estimation of creatinine clearance 50.81 ml/min [facility] Glomerular filtration rate ( GFR) estimationOrdered By: Lesli Watkins on 04-16-2024 Estimated GFR (MDRD) Non-Af Amer 89 mL/min >60 [facility] Comment on above: Non- GFR Calc GFR/1.73 sq M.predicted among non-blacks MDRD (S/P/Bld) [Vol rate/Area] 89 mL/min/{1.73_m2} >60 [facility] Glomerular filtration rate (GFR) estimation 89 mL/min >60 [facility] Glucose measurementOrdered B y: Lesli Watkins on 04-16-2024 Glucose [Mass/Vol] 113 mg/dL High 74-106 [facility] Comment on above: Fasting Glucose resu lt from 100 to 125 mg/dL suggests IMPAIRED HOMEOSTASIS per A.D.A. criteria. Glucose measurement 113 mg/dL High 74-106 [facility] Hematocrit Auto (Bld) [Volum e fraction]Ordered By: Lesli Watkins on 04-16-2024 Hematocrit (Bld) [Volume fraction] 36.8 % Low 37-47 [facility] Automated blood hematocrit (percentage) 36.8 % Low 37-47 [facility] Hemoglobin measurementOrdere d By: Lesli Watkins on 04-16-2024 Hemoglobin (Bld) [Mass/Vol] 11.9 g/dL Low 12.0-15. 0 [facility] Hemoglobin measurement 11.9 g/dL Low 12.0-15.0 [facility] MCV (RBC) [Entitic vol]Order ed By: Lesli Watkins on 04-16-2024 MCV (mean corpuscular volume) determination 97.6 fL 81-99 [facility] MCV (mean corpuscular volume ) determinationOrdered By: Lesli Watkins on 04-16-2024 MCV (RBC) [Entitic vol] 97.6 fL 81-99 [facility] Mean corpuscular hemoglobin (MCH) determinationOrdered By: Lesli Watkins on 04-16-2024 MCH (RBC) [Entitic mass] 31.6 pg 27.0-32.0 [facility] Mean corpuscular hemoglobin (MCH) determination 31.6 pg 27.0-32.0 [facility] Mean corpuscular hemoglobin concentration (MCHC) determinationOrdered By: Lesli Watkins on 04-16-2024 MCHC (RBC) [Mass/Vol] 32.3 g/dL 32-36 [facility] Mean corpuscular hemoglobin concentration (MCHC) determination 32.3 g/dL -36 [facility] Mean platelet volume determi nationOrdered By: Lesli Watkins on 04-16-2024 Platelet mean volume (Bld) [Entitic vol] 8.8 fL 6.2-12.0 [facility] Mean platelet volume determination 8.8 fl 6.2-12.0 [facility] Platelet countOrdered By: Gaby Watkins on 04-16-2024 Platelets (Bld) [#/Vol] 252 10*3/uL 150-450 [facility] Platelet count 252 K/mm3 150-450 [facility] Potassium measurementOrdered By: Lesli Watkins on 04-16-2024 Potassium [Moles/Vol] 4.5 mmol/L 3.5-5.1 [facility] Potassium measurement 4.5 mmol/L 3.5-5.1 [facility] RBC Auto (Bld) [#/Vol]Ordere d By: Lesli Watkins on 04-16-2024 RBC (Bld) [#/Vol] 3.77 10*6/uL Low 4.2-5.4 [facility] Automated blood erythrocyte count 3.77 M/mm3 Low 4.2-5.4 [facility] Serum anion gap measurementO rdered By: Lesli Watkins on 04-16-2024 Anion gap [Moles/Vol] 5 mmol/L 5-15 [facility] Serum anion gap measurement 5 08-12 [facility] Serum or plasma calcium gianluca urement (mass/volume)Ordered By: Lesli Watkins on 04-16-2024 Calcium [Mass/Vol] 9.3 mg/dL 8.5-10.1 [facility] Serum or plasma creatinine m easurement (mass/volume)Ordered By: Lesli Watkins on 04-16-2024 Creatinine [Mass/Vol] 0.68 mg/dL 0.55-1.02 [facility] Comment on above: The validity of the calculated GFR & GFRAA in patients over 70 years has not been determined. Clinical correlation is essential. Serum or plasma urea nitroge n measurement (mass/volume)Ordered By: Lesli Watkins on 04-16-2024 Urea nitrogen [Mass/Vol] 21 mg/dL High 10-15 [facility] Sodium levelOrdered By: Zeus Watkins on 04-16-2024 Sodium [Moles/Vol] 137 mmol/L 136-145 [facility] Sodium level 137 mmol/L 136-145 [facility] Urea nitrogen [Mass/Vol]Orde red By: Lesli Watkins on 04-16-2024 Serum or plasma urea nitrogen measurement (mass/volume) 21 mg/dL High 10-15 [facility] White blood cell (WBC) count Ordered By: Lesli Watkins on 04-16-2024 WBC (Bld) [#/Vol] 8.7 10*3/uL 4.4-11.0 [facility] White blood cell (WBC) count 8.7 K/mm3 4.4-11.0 [facility] Basic Metabolic Profile (BMP )on 04-15-2024 BUN/CRE 27.9 RATIO High 10-20 [facility] Comment on above: Performed By: #### L 500.2500, L100.0500 ####[facility] [address] [place], [address] CA,Total 9.2 mg/dL Normal 8.5-10.1 [facility] Comment on above: Performed By: #### L 500.2500, L100.0500 ####[facility] [address] [place], [address] Chloride [Moles/Vol] 107 mmol/L Normal 98-[address] [facility] Comment on above: Performed By: #### L 500.2500, L100.0500 ####[facility] [address] [place], [address] CO2 [Moles/Vol] 26.0 mmol/L Normal 21.0-32.0 [facility] Comment on above: Performed By: #### L 500.2500, L100.0500 ####[facility] [address] [place], [address] Creatinine [Mass/Vol] 0.68 mg/dL Normal 0.55-1.02 [facility] Comment on above: Result Comment: The validity of the calculated GFR GFRAA in patients over70 years has not been determined. Clinical correlation isessential. Performed By: #### L 500.2500, L100.0500 ####[facility] [address] [place], [address] ECRCL 50.81 ml/min Normal [facility] Comment on above: Performed By: #### L 500.2500, L100.0500 ####[facility] [address] [place], [address] EST GFR - AA 107 mL/min Normal >60 [facility] Comment on above: Result Comment: Afri can Tanzanian GFR Calc Performed By: #### L 500.2500, L100.0500 ####[facility] [address] [place], [address] GAP 5 Normal 5-15 [facility] Comment on above: Performed By: #### L 500.2500, L100.0500 ####[facility] [address] [place], [address] GFR/1.73 sq M.predicted among non-blacks MDRD (S/P/Bld) [Vol rate/Area] 89 mL/min/{1.73_m2} Normal >60 [facility] Comment on above: Result Comment: Non- GFR Calc Performed By: #### L 500.2500, L100.0500 ####[facility] [address] [place], [address] Glucose [Mass/Vol] 119 mg/dL High 74-106 [facility] Comment on above: Result Comment: Fast ing Glucose result from 100 to 125 mg/dLsuggests IMPAIRED HOMEOSTASIS per A.D.A. criteria. Performed By: #### L 500.2500, L100.0500 ####[facility] [address] [place], [address] Potassium [Moles/Vol] 4.4 mmol/L Normal 3.5-5.1 [facility] Comment on above: Performed By: #### L 500.2500, L100.0500 ####[facility] [address] [place], [address] Sodium [Moles/Vol] 138 mmol/L Normal 136-145 [facility] Comment on above: Performed By: #### L 500.2500, L100.0500 ####[facility] [address] [place], [address] Urea nitrogen [Mass/Vol] 19 mg/dL High 7-18 [facility] Comment on above: Performed By: #### L 500.2500, L100.0500 ####[facility] [address] [place], [address] CBC-Complete Blood Cnt No Di ffon 04-15-2024 Erythrocyte distribution width (RBC) [Ratio] 13.0 % Normal 11.6-14.6 [facility] Comment on above: Performed By: #### L 500.2500, L100.0500 ####[facility] [address] [place], [address] Hematocrit (Bld) [Volume fraction] 37.2 % Normal 37-47 [facility] Comment on above: Performed By: #### L 500.2500, L100.0500 ####[facility] [address] [place], [address] Hemoglobin (Bld) [Mass/Vol] 12.2 g/dL Normal 12.0-15. 0 [facility] Comment on above: Performed By: #### L 500.2500, L100.0500 ####[facility] [address] [place], [address] MCH (RBC) [Entitic mass] 31.9 pg Normal 27.0-32.0 [facility] Comment on above: Performed By: #### L 500.2500, L100.0500 ####[facility] [address] [place], [address] MCHC (RBC) [Mass/Vol] 32.8 g/dL Normal 32-36 [facility] Comment on above: Performed By: #### L 500.2500, L100.0500 ####[facility] [address] [place], [address] MCV (RBC) [Entitic vol] 97.4 fL Normal 81-99 [facility] Comment on above: Performed By: #### L 500.2500, L100.0500 ####[facility] [address] [place], [address] Platelet mean volume (Bld) [Entitic vol] 8.9 fL Normal 6.2-12.0 [facility] Comment on above: Performed By: #### L 500.2500, L100.0500 ####[facility] [address] [place], [address] Platelets (Bld) [#/Vol] 281 10*3/uL Normal 150-450 [facility] Comment on above: Performed By: #### L 500.2500, L100.0500 ####[facility] [address] [place], [address] RBC (Bld) [#/Vol] 3.82 10*6/uL Low 4.2-5.4 [facility] Comment on above: Performed By: #### L 500.2500, L100.0500 ####[facility] [address] [place], [address] RDW SD 46.1 fl High 35.1-43.9 [facility] Comment on above: Performed By: #### L 500.2500, L100.0500 ####[facility] [address] [place], [address] WBC (Bld) [#/Vol] 9.4 10*3/uL Normal 4.4-11.0 [facility] Comment on above: Performed By: #### L 500.2500, L100.0500 ####[facility] [address] [place], [address] 12 Lead EKGon 04-14-2024 12 Lead EKG Normal [facility] Basic Metabolic Profile (BMP )on 04-14-2024 BUN/CRE 25.0 RATIO High 10-20 [facility] Comment on above: Performed By: #### L 500.2500, L100.0500 ####[facility] [address] [place], [address] CA,Total 8.8 mg/dL Normal 8.5-10.1 [facility] Comment on above: Performed By: #### L 500.2500, L100.0500 ####[facility] [address] [place], [address] Chloride [Moles/Vol] 106 mmol/L Normal 98-[address] [facility] Comment on above: Performed By: #### L 500.2500, L100.0500 ####[facility] [address] [place], [address] CO2 [Moles/Vol] 27.0 mmol/L Normal 21.0-32.0 [facility] Comment on above: Performed By: #### L 500.2500, L100.0500 ####[facility] [address] [place], [address] Creatinine [Mass/Vol] 0.80 mg/dL Normal 0.55-1.02 [facility] Comment on above: Result Comment: The validity of the calculated GFR GFRAA in patients over70 years has not been determined. Clinical correlation isessential. Performed By: #### L 500.2500, L100.0500 ####[facility] [address] [place], [address] ECRCL 50.81 ml/min Normal [facility] Comment on above: Performed By: #### L 500.2500, L100.0500 ####[facility] [address] [place], [address] EST GFR - AA 89 mL/min Normal >60 [facility] Comment on above: Result Comment: Afri can Tanzanian GFR Calc Performed By: #### L 500.2500, L100.0500 ####[facility] [address] [place], [address] GAP 4 Low 5-15 [facility] Comment on above: Performed By: #### L 500.2500, L100.0500 ####[facility] [address] [place], [address] GFR/1.73 sq M.predicted among non-blacks MDRD (S/P/Bld) [Vol rate/Area] 74 mL/min/{1.73_m2} Normal >60 [facility] Comment on above: Result Comment: Non- GFR Calc Performed By: #### L 500.2500, L100.0500 ####[facility] [address] [place], [address] Glucose [Mass/Vol] 93 mg/dL Normal 74-106 [facility] Comment on above: Performed By: #### L 500.2500, L100.0500 ####[facility] [address] [place], [address] Potassium [Moles/Vol] 4.3 mmol/L Normal 3.5-5.1 [facility] Comment on above: Performed By: #### L 500.2500, L100.0500 ####[facility] [address] [place], [address] Sodium [Moles/Vol] 138 mmol/L Normal 136-145 [facility] Comment on above: Performed By: #### L 500.2500, L100.0500 ####[facility] [address] [place], [address] Urea nitrogen [Mass/Vol] 20 mg/dL High 7-18 [facility] Comment on above: Performed By: #### L 500.2500, L100.0500 ####[facility] [address] [place], [address] CBC-Complete Blood Cnt No Di ffon 04-14-2024 Erythrocyte distribution width (RBC) [Ratio] 13.1 % Normal 11.6-14.6 [facility] Comment on above: Performed By: #### L 500.2500, L100.0500 ####[facility] [address] [place], [address] Hematocrit (Bld) [Volume fraction] 36.1 % Low 37-47 [facility] Comment on above: Performed By: #### L 500.2500, L100.0500 ####[facility] [address] [place], [address] Hemoglobin (Bld) [Mass/Vol] 11.6 g/dL Low 12.0-15. 0 [facility] Comment on above: Performed By: #### L 500.2500, L100.0500 ####[facility] [address] [place], [address] MCH (RBC) [Entitic mass] 31.9 pg Normal 27.0-32.0 [facility] Comment on above: Performed By: #### L 500.2500, L100.0500 ####[facility] [address] [place], [address] MCHC (RBC) [Mass/Vol] 32.1 g/dL Normal 32-36 [facility] Comment on above: Performed By: #### L 500.2500, L100.0500 ####[facility] [address] [place], [address] MCV (RBC) [Entitic vol] 99.2 fL High 81-99 [facility] Comment on above: Performed By: #### L 500.2500, L100.0500 ####[facility] [address] [place], [address] Platelet mean volume (Bld) [Entitic vol] 9.0 fL Normal 6.2-12.0 [facility] Comment on above: Performed By: #### L 500.2500, L100.0500 ####[facility] [address] [place], [address] Platelets (Bld) [#/Vol] 269 10*3/uL Normal 150-450 [facility] Comment on above: Performed By: #### L 500.2500, L100.0500 ####[facility] [address] [place], [address] RBC (Bld) [#/Vol] 3.64 10*6/uL Low 4.2-5.4 [facility] Comment on above: Performed By: #### L 500.2500, L100.0500 ####[facility] [address] [place], [address] RDW SD 47.4 fl High 35.1-43.9 [facility] Comment on above: Performed By: #### L 500.2500, L100.0500 ####[facility] [address] [place], [address] WBC (Bld) [#/Vol] 7.1 10*3/uL Normal 4.4-11.0 [facility] Comment on above: Performed By: #### L 500.2500, L100.0500 ####[facility] [address] [place], [address] Lumbar Spine 2 or 3 Viewson 04-14-2024 Lumbar Spine 2 or 3 Views Normal [facility] MR/POSTOP.ANEon 04-14-2024 MR/POSTOP.ANE Normal [facility] MR/[id number] 04-14-2024 MR/POSTOPAN2 Normal [facility] Operative Reporton Operative Report Normal [facility] Basic Metabolic Profile (BMP )on 04-13-2024 BUN/CRE 25.7 RATIO High 10-20 [facility] Comment on above: Performed By: #### L 500.2500, L100.0500 ####[facility] [address] [place], [address] CA,Total 9.0 mg/dL Normal 8.5-10.1 [facility] Comment on above: Performed By: #### L 500.2500, L100.0500 ####[facility] [address] [place], [address] Chloride [Moles/Vol] 107 mmol/L Normal 98-[address] [facility] Comment on above: Performed By: #### L 500.2500, L100.0500 ####[facility] [address] [place], [address] CO2 [Moles/Vol] 27.0 mmol/L Normal 21.0-32.0 [facility] Comment on above: Performed By: #### L 500.2500, L100.0500 ####[facility] [address] [place], [address] Creatinine [Mass/Vol] 0.70 mg/dL Normal 0.55-1.02 [facility] Comment on above: Result Comment: The validity of the calculated GFR GFRAA in patients over70 years has not been determined. Clinical correlation isessential. Performed By: #### L 500.2500, L100.0500 ####[facility] [address] [place], [address] ECRCL 50.81 ml/min Normal [facility] Comment on above: Performed By: #### L 500.2500, L100.0500 ####[facility] [address] [place], [address] EST GFR - AA 104 mL/min Normal >60 [facility] Comment on above: Result Comment: Afri can Tanzanian GFR Calc Performed By: #### L 500.2500, L100.0500 ####[facility] [address] [place], [address] GAP 5 Normal 5-15 [facility] Comment on above: Performed By: #### L 500.2500, L100.0500 ####[facility] [address] [place], [address] GFR/1.73 sq M.predicted among non-blacks MDRD (S/P/Bld) [Vol rate/Area] 86 mL/min/{1.73_m2} Normal >60 [facility] Comment on above: Result Comment: Non- GFR Calc Performed By: #### L 500.2500, L100.0500 ####[facility] [address] [place], [address] Glucose [Mass/Vol] 94 mg/dL Normal 74-106 [facility] Comment on above: Performed By: #### L 500.2500, L100.0500 ####[facility] [address] [place], [address] Potassium [Moles/Vol] 4.1 mmol/L Normal 3.5-5.1 [facility] Comment on above: Performed By: #### L 500.2500, L100.0500 ####[facility] [address] [place], [address] Sodium [Moles/Vol] 139 mmol/L Normal 136-145 [facility] Comment on above: Performed By: #### L 500.2500, L100.0500 ####[facility] [address] [place], [address] Urea nitrogen [Mass/Vol] 18 mg/dL Normal 7-18 [facility] Comment on above: Performed By: #### L 500.2500, L100.0500 ####[facility] [address] [place], [address] CBC-Complete Blood Cnt No Di ffon 04-13-2024 Erythrocyte distribution width (RBC) [Ratio] 13.1 % Normal 11.6-14.6 [facility] Comment on above: Performed By: #### L 500.2500, L100.0500 ####[facility] [address] [place], [address] Hematocrit (Bld) [Volume fraction] 37.7 % Normal 37-47 [facility] Comment on above: Performed By: #### L 500.2500, L100.0500 ####[facility] [address] [place], [address] Hemoglobin (Bld) [Mass/Vol] 12.2 g/dL Normal 12.0-15. 0 [facility] Comment on above: Performed By: #### L 500.2500, L100.0500 ####[facility] [address] [place], [address] MCH (RBC) [Entitic mass] 32.0 pg Normal 27.0-32.0 [facility] Comment on above: Performed By: #### L 500.2500, L100.0500 ####[facility] [address] [place], [address] MCHC (RBC) [Mass/Vol] 32.4 g/dL Normal 32-36 [facility] Comment on above: Performed By: #### L 500.2500, L100.0500 ####[facility] [address] [place], [address] MCV (RBC) [Entitic vol] 99.0 fL Normal 81-99 [facility] Comment on above: Performed By: #### L 500.2500, L100.0500 ####[facility] [address] [place], [address] Platelet mean volume (Bld) [Entitic vol] 9.0 fL Normal 6.2-12.0 [facility] Comment on above: Performed By: #### L 500.2500, L100.0500 ####[facility] [address] [place], [address] Platelets (Bld) [#/Vol] 267 10*3/uL Normal 150-450 [facility] Comment on above: Performed By: #### L 500.2500, L100.0500 ####[facility] [address] [place], [address] RBC (Bld) [#/Vol] 3.81 10*6/uL Low 4.2-5.4 [facility] Comment on above: Performed By: #### L 500.2500, L100.0500 ####[facility] [address] [place], [address] RDW SD 47.2 fl High 35.1-43.9 [facility] Comment on above: Performed By: #### L 500.2500, L100.0500 ####[facility] [address] [place], [address] WBC (Bld) [#/Vol] 6.6 10*3/uL Normal 4.4-11.0 [facility] Comment on above: Performed By: #### L 500.2500, L100.0500 ####[facility] [address] [place], [address] Spine Lumbar (Routine)on Spine Lumbar (Routine) Normal [facility] Absolute lymphocyte countOrd ered By: Lesli Watkins on 04-12-2024 Lymphocytes Auto (Unsp spec) [#/Vol] 1.50 10*3/uL 0.83-4.51 [facility] Absolute neutrophil countOrd ered By: Lesli Watkins on 04-12-2024 Neutrophils (Bld) [#/Vol] 4.5 10*3/uL 2.0-7.7 [facility] Absolute neutrophil count 4.5 X10^3/uL 2.0-7.7 [facility] Automated lymphocyte count a s percentage of total leukocytesOrdered By: Lesli Watkins on 04-12-2024 Lymphocytes/100 WBC Auto (Unsp spec) 21.6 % 19-41 [facility] Basic Metabolic Profile (BMP )on 04-12-2024 BUN/CRE 18.6 RATIO Normal 10-20 [facility] Comment on above: Performed By: #### L 300.3900, L501.9520, L500.2500, L100.0100, L501.5200 ####[facility] [address] [place], [address] CA,Total 9.0 mg/dL Normal 8.5-10.1 [facility] Comment on above: Performed By: #### L 300.3900, L501.9520, L500.2500, L100.0100, L501.5200 ####[facility] [address] [place], [address] Chloride [Moles/Vol] 107 mmol/L Normal 98-[address] [facility] Comment on above: Performed By: #### L 300.3900, L501.9520, L500.2500, L100.0100, L501.5200 ####[facility] [address] [place], [address] CO2 [Moles/Vol] 26.0 mmol/L Normal 21.0-32.0 [facility] Comment on above: Performed By: #### L 300.3900, L501.9520, L500.2500, L100.0100, L501.5200 ####[facility] [address] [place], [address] Creatinine [Mass/Vol] 0.81 mg/dL Normal 0.55-1.02 [facility] Comment on above: Result Comment: The validity of the calculated GFR GFRAA in patients over70 years has not been determined. Clinical correlation isessential. Performed By: #### L 300.3900, L501.9520, L500.2500, L100.0100, L501.5200 ####[facility] [address] [place], [address] ECRCL 50.18 ml/min Normal [facility] Comment on above: Performed By: #### L 300.3900, L501.9520, L500.2500, L100.0100, L501.5200 ####[facility] [address] [place], [address] EST GFR - AA 88 mL/min Normal >60 [facility] Comment on above: Result Comment: Afri can Tanzanian GFR Calc Performed By: #### L 300.3900, L501.9520, L500.2500, L100.0100, L501.5200 ####[facility] [address] [place], [address] GAP 6 Normal 5-15 [facility] Comment on above: Performed By: #### L 300.3900, L501.9520, L500.2500, L100.0100, L501.5200 ####[facility] [address] [place], [address] GFR/1.73 sq M.predicted among non-blacks MDRD (S/P/Bld) [Vol rate/Area] 73 mL/min/{1.73_m2} Normal >60 [facility] Comment on above: Result Comment: Non- GFR Calc Performed By: #### L 300.3900, L501.9520, L500.2500, L100.0100, L501.5200 ####[facility] [address] [place], [address] Glucose [Mass/Vol] 95 mg/dL Normal 74-106 [facility] Comment on above: Performed By: #### L 300.3900, L501.9520, L500.2500, L100.0100, L501.5200 ####[facility] [address] [place], [address] Potassium [Moles/Vol] 4.4 mmol/L Normal 3.5-5.1 [facility] Comment on above: Performed By: #### L 300.3900, L501.9520, L500.2500, L100.0100, L501.5200 ####[facility] [address] [place], [address] Sodium [Moles/Vol] 138 mmol/L Normal 136-145 [facility] Comment on above: Performed By: #### L 300.3900, L501.9520, L500.2500, L100.0100, L501.5200 ####[facility] [address] [place], [address] Urea nitrogen [Mass/Vol] 15 mg/dL Normal 7-18 [facility] Comment on above: Performed By: #### L 300.3900, L501.9520, L500.2500, L100.0100, L501.5200 ####[facility] [address] [place], [address] Basophil percentageOrdered B y: Lesli Watkins on 04-12-2024 Basophils/100 WBC (Bld) 0.6 % 0-1 [facility] Basophil percentage 0.6 % 0-1 [facility] CBC W/Diff, Automatedon 03-31 Absolute Lymph 1.50 X10 3/uL Normal 0.83-4.51 [facility] Comment on above: Performed By: #### L 300.3900, L501.9520, L500.2500, L100.0100, L501.5200 ####[facility] [address] [place], [address] Absolute Neut 4.5 X10 3/uL Normal 2.0-7.7 [facility] Comment on above: Performed By: #### L 300.3900, L501.9520, L500.2500, L100.0100, L501.5200 ####[facility] [address] [place], [address] Basophils/100 WBC (Bld) 0.6 % Normal 0-1 [facility] Comment on above: Performed By: #### L 300.3900, L501.9520, L500.2500, L100.0100, L501.5200 ####[facility] [address] [place], [address] Eosinophils/100 WBC (Bld) 1.3 % Normal 0-5 [facility] Comment on above: Performed By: #### L 300.3900, L501.9520, L500.2500, L100.0100, L501.5200 ####[facility] [address] [place], [address] Erythrocyte distribution width (RBC) [Ratio] 13.1 % Normal 11.6-14.6 [facility] Comment on above: Performed By: #### L 300.3900, L501.9520, L500.2500, L100.0100, L501.5200 ####[facility] [address] [place], [address] Hematocrit (Bld) [Volume fraction] 39.0 % Normal 37-47 [facility] Comment on above: Performed By: #### L 300.3900, L501.9520, L500.2500, L100.0100, L501.5200 ####[facility] [address] [place], [address] Hemoglobin (Bld) [Mass/Vol] 12.5 g/dL Normal 12.0-15. 0 [facility] Comment on above: Performed By: #### L 300.3900, L501.9520, L500.2500, L100.0100, L501.5200 ####[facility] [address] [place], [address] IG% 0.400 Normal 0.0-0.9 [facility] Comment on above: Result Comment: IG% - Immature Granulocytes (promyelocytes, myelocytes andmetamyelocytes) > 1% indicates that a LEFT SHIFT is Present. Performed By: #### L 300.3900, L501.9520, L500.2500, L100.0100, L501.5200 ####[facility] [address] [place], [address] Lymphocytes/100 WBC (Bld) 21.6 % Normal 19-41 [facility] Comment on above: Performed By: #### L 300.3900, L501.9520, L500.2500, L100.0100, L501.5200 ####[facility] [address] [place], [address] MCH (RBC) [Entitic mass] 31.7 pg Normal 27.0-32.0 [facility] Comment on above: Performed By: #### L 300.3900, L501.9520, L500.2500, L100.0100, L501.5200 ####[facility] [address] [place], [address] MCHC (RBC) [Mass/Vol] 32.1 g/dL Normal 32-36 [facility] Comment on above: Performed By: #### L 300.3900, L501.9520, L500.2500, L100.0100, L501.5200 ####[facility] [address] [place], [address] MCV (RBC) [Entitic vol] 99.0 fL Normal 81-99 [facility] Comment on above: Performed By: #### L 300.3900, L501.9520, L500.2500, L100.0100, L501.5200 ####[facility] [address] [place], [address] Monocytes/100 WBC (Bld) 10.9 % High 0-10 [facility] Comment on above: Performed By: #### L 300.3900, L501.9520, L500.2500, L100.0100, L501.5200 ####[facility] [address] [place], [address] Neutrophils/100 WBC (Bld) 65.2 % Normal 47-70 [facility] Comment on above: Performed By: #### L 300.3900, L501.9520, L500.2500, L100.0100, L501.5200 ####[facility] [address] [place], [address] Nucleated RBC (Bld) [#/Vol] 0 10*3/uL Normal 0-5 [facility] Comment on above: Performed By: #### L 300.3900, L501.9520, L500.2500, L100.0100, L501.5200 ####[facility] [address] [place], [address] Platelet mean volume (Bld) [Entitic vol] 8.8 fL Normal 6.2-12.0 [facility] Comment on above: Performed By: #### L 300.3900, L501.9520, L500.2500, L100.0100, L501.5200 ####[facility] [address] [place], [address] Platelets (Bld) [#/Vol] 291 10*3/uL Normal 150-450 [facility] Comment on above: Performed By: #### L 300.3900, L501.9520, L500.2500, L100.0100, L501.5200 ####[facility] [address] [place], [address] RBC (Bld) [#/Vol] 3.94 10*6/uL Low 4.2-5.4 [facility] Comment on above: Performed By: #### L 300.3900, L501.9520, L500.2500, L100.0100, L501.5200 ####[facility] [address] [place], [address] RDW SD 47.5 fl High 35.1-43.9 [facility] Comment on above: Performed By: #### L 300.3900, L501.9520, L500.2500, L100.0100, L501.5200 ####[facility] [address] [place], [address] WBC (Bld) [#/Vol] 7.0 10*3/uL Normal 4.4-11.0 [facility] Comment on above: Performed By: #### L 300.3900, L501.9520, L500.2500, L100.0100, L501.5200 ####[facility] [address] [place], [place], [id number] Eosinophil percentageOrdered By: Lesil Watkins on 04-12-2024 Eosinophils/100 WBC (Bld) 1.3 % 0-5 [facility] Eosinophil percentage 1.3 % 0-5 [facility] Immature granulocytes/100 WB C Auto (Bld)Ordered By: Lesli Watkins on 04-12-2024 Immature granulocytes/100 WBC (Bld) 0.400 % 0.0-0.9 [facility] Comment on above: IG% - Immature Granu locytes (promyelocytes, myelocytes and metamyelocytes) > 1% indicates that a LEFT SHIFT is Present. Automated immature granulocyte percentage 0.400 % 0.0-0.9 [facility] International normalized rat io (INR) calculationOrdered By: Lesli Watkins on 04-12-2024 INR Coag (Bld) [Relative time] 1.0 {INR} [facility] International normalized ratio (INR) calculation 1.0 [facility] Lymphocytes Auto (Unsp spec) [#/Vol]Ordered By: Lesli Watkins on 04-12-2024 Lymphocytes (Bld) [#/Vol] 1.50 10*3/uL 0.83-4.5 1 [facility] Absolute lymphocyte count 1.50 X10^3/uL 0.83-4. 51 [facility] Lymphocytes/100 WBC Auto (Un sp spec)Ordered By: Lesli Watkins on 04-12-2024 Lymphocytes/100 WBC (Bld) 21.6 % [facility] Automated lymphocyte count as percentage of total leukocytes 21.6 % [facility] Magnesiumon 04-12-2024 Magnesium [Mass/Vol] 2.3 mg/dL Normal 1.6-2.[address] [facility] Comment on above: Performed By: #### L 300.3900, L501.9520, L500.2500, L100.0100, L501.5200 ####[facility] [address] [place], [place], [id number] Magnesium measurementOrdered By: Lesli Watkins on 04-12-2024 Magnesium [Mass/Vol] 2.3 mg/dL 1.6-2.[address] [facility] Magnesium measurement 2.3 mg/dL 1.6-2.6 [facility] Monocyte percentageOrdered B y: Lesli Watkins on 04-12-2024 Monocytes/100 WBC (Bld) 10.9 % High 0-10 [facility] Monocyte percentage 10.9 % High 0-10 [facility] Neutrophil percentageOrdered By: Lesli Watkins on 04-12-2024 Neutrophils/100 WBC (Bld) 65.2 % 47-70 [facility] Neutrophil percentage 65.2 % 47-70 [facility] Nucleated red blood cell per centageOrdered By: Lesli Watkins on 04-12-2024 Nucleated RBC/100 WBC (Bld) [Ratio] 0 % 0-5 [facility] Nucleated red blood cell percentage 0 % 0-5 [facility] Prothrombin Time w/INRon INR Coag (PPP) [Relative time] 1.0 {INR} Normal [facility] Comment on above: Performed By: #### L 300.3900, L501.9520, L500.2500, L100.0100, L501.5200 ####[facility] [address] [place], [place], [id number] PT Coag (PPP) [Time] 13.8 s Normal 11.7-14.[address] [facility] Comment on above: Performed By: #### L 300.3900, L501.9520, L500.2500, L100.0100, L501.5200 ####[facility] [address] [place], [address] Prothrombin timeOrdered By: Lesli Watkins on 04-12-2024 PT Coag (PPP) [Time] 13.8 s 11.7-14.[address] [facility] Prothrombin time 13.8 SECONDS 11.7-14.9 [facility] Serum or plasma thyroid stim ulating hormone (TSH) measurement (units/volume)Ordered By: Lesli Watkins on 04-12-2024 TSH Qn 0.856 uIU/mL 0.358-3.740 [facility] TSH QnOrdered By: Lesli mccoy on 04-12-2024 Thyroid Stimulating Hormone (TSH) 0.856 uIU/mL 0.358-3.740 [facility] Serum or plasma thyroid stimulating hormone (TSH) measurement (units/volume) 0.856 uIU/mL 0.358-3.740 [facility] Thyroid Stim Hormone (TSH)on 04-12-2024 TSH 0.856 uIU/mL Normal 0.358-3.740 [facility] Comment on above: Performed By: #### L 300.3900, L501.9520, L500.2500, L100.0100, L501.5200 ####[facility] [address] [place], [address] Transvaginal Non-on 04-12-2024 Transvaginal Non- Normal [facility] Basic Metabolic Profile (BMP )on 04-11-2024 BUN/CRE 18.3 RATIO Normal 10-20 [facility] Comment on above: Performed By: #### L 100.0100, L500.2500 ####[facility] [address] [place], [address] CA,Total 9.1 mg/dL Normal 8.5-10.1 [facility] Comment on above: Performed By: #### L 100.0100, L500.2500 ####[facility] [address] [place], [address] Chloride [Moles/Vol] 103 mmol/L Normal 98-[address] [facility] Comment on above: Performed By: #### L 100.0100, L500.2500 ####[facility] [address] [place], [address] CO2 [Moles/Vol] 27.0 mmol/L Normal 21.0-32.0 [facility] Comment on above: Performed By: #### L 100.0100, L500.2500 ####[facility] [address] [place], [address] Creatinine [Mass/Vol] 0.76 mg/dL Normal 0.55-1.02 [facility] Comment on above: Result Comment: The validity of the calculated GFR GFRAA in patients over70 years has not been determined. Clinical correlation isessential. Performed By: #### L 100.0100, L500.2500 ####[facility] [address] [place], [address] ECRCL 53.96 ml/min Normal [facility] Comment on above: Performed By: #### L 100.0100, L500.2500 ####[facility] [address] [place], [address] EST GFR - AA 94 mL/min Normal >60 [facility] Comment on above: Result Comment: Afri can Tanzanian GFR Calc Performed By: #### L 100.0100, L500.2500 ####[facility] [address] [place], [address] GAP 6 Normal 5-15 [facility] Comment on above: Performed By: #### L 100.0100, L500.2500 ####[facility] [address] [place], [address] GFR/1.73 sq M.predicted among non-blacks MDRD (S/P/Bld) [Vol rate/Area] 78 mL/min/{1.73_m2} Normal >60 [facility] Comment on above: Result Comment: Non- GFR Calc Performed By: #### L 100.0100, L500.2500 ####[facility] [address] [place], [address] Glucose [Mass/Vol] 97 mg/dL Normal 74-106 [facility] Comment on above: Performed By: #### L 100.0100, L500.2500 ####[facility] [address] [place], [address] Potassium [Moles/Vol] 4.2 mmol/L Normal 3.5-5.1 [facility] Comment on above: Performed By: #### L 100.0100, L500.2500 ####[facility] [address] [place], [address] Sodium [Moles/Vol] 136 mmol/L Normal 136-145 [facility] Comment on above: Performed By: #### L 100.0100, L500.2500 ####[facility] [address] [place], [address] Urea nitrogen [Mass/Vol] 14 mg/dL Normal 7-18 [facility] Comment on above: Performed By: #### L 100.0100, L500.2500 ####[facility] [address] [place], [address] CBC W/Diff, Automatedon 03-31 Absolute Lymph 1.21 X10 3/uL Normal 0.83-4.51 [facility] Comment on above: Performed By: #### L 100.0100, L500.2500 ####[facility] [address] [place], [address] Absolute Neut 5.9 X10 3/uL Normal 2.0-7.7 [facility] Comment on above: Performed By: #### L 100.0100, L500.2500 ####[facility] [address] [place], [address] Basophils/100 WBC (Bld) 0.7 % Normal 0-1 [facility] Comment on above: Performed By: #### L 100.0100, L500.2500 ####[facility] [address] [place], [address] Eosinophils/100 WBC (Bld) 1.0 % Normal 0-5 [facility] Comment on above: Performed By: #### L 100.0100, L500.2500 ####[facility] [address] [place], [address] Erythrocyte distribution width (RBC) [Ratio] 13.0 % Normal 11.6-14.6 [facility] Comment on above: Performed By: #### L 100.0100, L500.2500 ####[facility] [address] [place], [address] Hematocrit (Bld) [Volume fraction] 38.0 % Normal 37-47 [facility] Comment on above: Performed By: #### L 100.0100, L500.2500 ####[facility] [address] [place], [address] Hemoglobin (Bld) [Mass/Vol] 12.7 g/dL Normal 12.0-15. 0 [facility] Comment on above: Performed By: #### L 100.0100, L500.2500 ####[facility] [address] [place], [address] IG% 0.400 Normal 0.0-0.9 [facility] Comment on above: Result Comment: IG% - Immature Granulocytes (promyelocytes, myelocytes andmetamyelocytes) > 1% indicates that a LEFT SHIFT is Present. Performed By: #### L 100.0100, L500.2500 ####[facility] [address] [place], [address] Lymphocytes/100 WBC (Bld) 15.1 % Low 19-41 [facility] Comment on above: Performed By: #### L 100.0100, L500.2500 ####[facility] [address] [place], [address] MCH (RBC) [Entitic mass] 32.4 pg High 27.0-32.0 [facility] Comment on above: Performed By: #### L 100.0100, L500.2500 ####[facility] [address] [place], [address] MCHC (RBC) [Mass/Vol] 33.4 g/dL Normal 32-36 [facility] Comment on above: Performed By: #### L 100.0100, L500.2500 ####[facility] [address] [place], [address] MCV (RBC) [Entitic vol] 96.9 fL Normal 81-99 [facility] Comment on above: Performed By: #### L 100.0100, L500.2500 ####[facility] [address] [place], [address] Monocytes/100 WBC (Bld) 9.0 % Normal 0-10 [facility] Comment on above: Performed By: #### L 100.0100, L500.2500 ####[facility] [address] [place], [address] Neutrophils/100 WBC (Bld) 73.8 % High 47-70 [facility] Comment on above: Performed By: #### L 100.0100, L500.2500 ####[facility] [address] [place], [address] Nucleated RBC (Bld) [#/Vol] 0 10*3/uL Normal 0-5 [facility] Comment on above: Performed By: #### L 100.0100, L500.2500 ####[facility] [address] [place], [address] Platelet mean volume (Bld) [Entitic vol] 9.1 fL Normal 6.2-12.0 [facility] Comment on above: Performed By: #### L 100.0100, L500.2500 ####[facility] [address] [place], [address] Platelets (Bld) [#/Vol] 296 10*3/uL Normal 150-450 [facility] Comment on above: Performed By: #### L 100.0100, L500.2500 ####[facility] [address] [place], [address] RBC (Bld) [#/Vol] 3.92 10*6/uL Low 4.2-5.4 [facility] Comment on above: Performed By: #### L 100.0100, L500.2500 ####[facility] [address] [place], [address] RDW SD 46.2 fl High 35.1-43.9 [facility] Comment on above: Performed By: #### L 100.0100, L500.2500 ####[facility] [address] [place], [address] WBC (Bld) [#/Vol] 8.0 10*3/uL Normal 4.4-11.0 [facility] Comment on above: Performed By: #### L 100.0100, L500.2500 ####[facility] [address] [place], [address] Emergency Department Summary on 04-11-2024 Emergency Department Summary Normal [facility] H AND P Exam - Hospitaliston 04-11-2024 H&P Exam - Hospitalist Normal [facility] Lumbar Spine 2 or 3 Viewson 04-11-2024 Lumbar Spine 2 or 3 Views Normal [facility] Emergency Department Summary on 03-30-2024 Emergency Department Summary Normal [facility] HIP, UNI W/ Pelvis 2-3 Views on 03-30-2024 HIP, UNI W/ Pelvis 2-3 Views Normal [facility] Lumbar Spine 2 or 3 Viewson 03-30-2024 Lumbar Spine 2 or 3 Views Normal [facility] Brain/Head without Contrasto n 02-25-2024 Brain/Head without Contrast Normal [facility] Emergency Department Summary on 02-25-2024 Emergency Department Summary Normal [facility] Spine Cervical without Contr ason 02-25-2024 Spine Cervical without Contras Normal [facility] Gastroenterology Visit Repor ton 02-23-2024 Gastroenterology Visit Report Normal [facility] Re-Evaluation - PT (1)on Re-Evaluation - PT (1) Normal [facility] Dexa Bone Density/Append Ske sergio 01-08-2024 Dexa Bone Density/Append Skel Normal [facility] Inital Evaluation (1) - PTon 12-29-2023 Inital Evaluation (1) - PT Normal [facility] Absolute lymphocyte countOrd ered By: Michael Snowden on 05-28-2023 Lymphocytes Auto (Unsp spec) [#/Vol] 1.31 10*3/uL 0.83-4.51 [facility] Automated lymphocyte count a s percentage of total leukocytesOrdered By: Michael Snowden on 05-28-2023 Lymphocytes/100 WBC Auto (Unsp spec) 20.5 % 19-41 [facility] Basophil percentageOrdered B y: Michael Snowden on 05-28-2023 Basophils/100 WBC (Bld) 0.5 % 0-1 [facility] Bilirubin [Mass/Vol] 0.80 mg/dL 0.20-1.[address] [facility] Comment on above: For patients on eltr ombopag therapy, use of Dimension Pella TBIL is not recommended. Chloride [Moles/Vol] 106 mmol/L 98-[address] [facility] Cholesterol [Mass/Vol] 168 mg/dL <200 [facility] Comment on above: <200 mg/dL Desirable 200-240 mg/dL Borderline >240 mg/dL High Risk Eosinophils/100 WBC (Bld) 2.4 % 0-5 [facility] Glucose [Mass/Vol] 87 mg/dL 74-106 [facility] Hemoglobin (Bld) [Mass/Vol] 12.7 g/dL 12.0-15. 0 [facility] Monocytes/100 WBC (Bld) 8.9 % 0-10 [facility] Neutrophils (Bld) [#/Vol] 4.3 10*3/uL 2.0-7.7 [facility] Neutrophils/100 WBC (Bld) 67.4 % 47-70 [facility] Potassium [Moles/Vol] 4.0 mmol/L 3.5-5.1 [facility] Protein [Mass/Vol] 7.6 g/dL 6.4-8.2 [facility] Sodium [Moles/Vol] 139 mmol/L 136-145 [facility] Triglyceride [Mass/Vol] 103 mg/dL <199 [facility] Comment on above: The drugs N-Acetylcy steine and Metamizole may falsely depress this assay.Serum Triglycerides Reference Interval Normal <150 mg/dL Borderline high 150 - 199 mg/dL High 200 - 499 mg/dL Very High > or = 500 mg/dL WBC (Bld) [#/Vol] 6.4 10*3/uL 4.4-11.0 [facility] Determination of erythrocyte mean corpuscular volume (MCV)Ordered By: Michael Snowden on 05-28-2023 MCV (RBC) [Entitic vol] 100.8 fL 81-99 [facility] Erythrocyte distribution wid th ratioOrdered By: Michael Snowden on 05-28-2023 Erythrocyte distribution width (RBC) [Ratio] 13.2 % 11.6-14.6 [facility] Erythrocyte distribution wid th standard deviationOrdered By: Michael Snowden on 05-28-2023 Erythrocyte distribution width (RBC) [Entitic vol] 48.9 fL 35.1-43.9 [facility] Hematocrit Auto (Bld) [Volum e fraction]Ordered By: Michael Snowden on 05-28-2023 Hematocrit (Bld) [Volume fraction] 39.4 % 37-47 [facility] Immature granulocytes/100 WB C Auto (Bld)Ordered By: Michael Snowden on 05-28-2023 Immature granulocytes/100 WBC (Bld) 0.300 % 0.0-0.9 [facility] Comment on above: IG% - Immature Granu locytes (promyelocytes, myelocytes and metamyelocytes) > 1% indicates that a LEFT SHIFT is Present. Laboratory - Chemistry and C hemistry - challengeOrdered By: Michael Snowden on 05-28-2023 Albumin/Globulin [Mass ratio] 0.8 {ratio} 0.9-2.4 [facility] ALP [Catalytic activity/Vol] 78 U/L 45-117 [facility] ALT [Catalytic activity/Vol] 29 U/L 13-56 [facility] Cholesterol in HDL [Mass/Vol] 70 mg/dL >40 [facility] Comment on above: The drugs N-Acetylcy steine and Metamizole may falsely depress this assay. Reference Range HDL <40 mg/dL Low HDL Cholesterol HDL >or= 60 mg/dL High HDL Cholesterol Cholesterol in LDL [Mass/Vol] 77 mg/dL 0-130 [facility] CO2 [Moles/Vol] 28.0 mmol/L 21.0-32.0 [facility] Globulin (S) [Mass/Vol] 4.2 g/dL 2.2-4.2 [facility] Urea nitrogen/Creatinine [Mass ratio] 22.7 mg/mg 10-20 [facility] Laboratory - Hematology and Cell countsOrdered By: Michael Snowden on 05-28-2023 MCH (RBC) [Entitic mass] 32.5 pg 27.0-32.0 [facility] MCHC (RBC) [Mass/Vol] 32.2 g/dL 32-36 [facility] Nucleated RBC/100 WBC (Bld) [Ratio] 0 % 0-5 [facility] Platelet mean volume (Bld) [Entitic vol] 9.8 fL 6.2-12.0 [facility] Platelets (Bld) [#/Vol] 219 10*3/uL 150-450 [facility] No Panel InformationOrdered By: Michael Snowden on 05-28-2023 Estimated GFR (MDRD) Amer 97 mL/min >60 [facility] Comment on above: GFR Calc Estimated GFR (MDRD) Non-Af Amer 80 mL/min >60 [facility] Comment on above: Non- GFR Calc Vitamin D 25-Hydroxy 81.9 ng/mL [facility] Comment on above: Vitamin D 25(OH) Sta tus Range Deficiency <20 ng/mL (50nmol/L) Insufficiency 20 - 30 ng/mL (50 - 75 nmol/L) Sufficiency 30 - 100 ng/mL (75 - 250 nmol/L) Toxicity >100 ng/mL (>250 nmol/L) VLDL Cholesterol 21 mg/dL 5-40 [facility] RBC Auto (Bld) [#/Vol]Ordere d By: Michael Snowden on 05-28-2023 RBC (Bld) [#/Vol] 3.91 10*6/uL 4.2-5.4 [facility] Serum or plasma calcium gianluca urement (mass/volume)Ordered By: Michael Snowden on 05-28-2023 Calcium [Mass/Vol] 9.0 mg/dL 8.5-10.1 [facility] Serum or plasma creatinine m easurement (mass/volume)Ordered By: Michael Snowden on 05-28-2023 Creatinine [Mass/Vol] 0.75 mg/dL 0.55-1.02 [facility] Comment on above: The validity of the calculated GFR & GFRAA in patients over 70 years has not been determined. Clinical correlation is essential. Serum or plasma thyroid stim ulating hormone (TSH) measurement (units/volume)Ordered By: Michael Snowden on 05-28-2023 TSH Qn 1.09 uIU/mL 0.358-3.74 [facility] Serum or plasma urea nitroge n measurement (mass/volume)Ordered By: Michael Snowden on 05-28-2023 Urea nitrogen [Mass/Vol] 17 mg/dL 7-18 [facility] Thin prep Papanicolaou smear with manual screeningOrdered By: Michael Snowden on 05-28-2023 Thin prep Papanicolaou smear with manual screening 3.4 g/dL 3.2-5.[address] [facility] Thin prep Papanicolaou smear with manual screening 23 U/L 15-[address] [facility] Thin prep Papanicolaou smear with manual screening 5 5-[address] [facility] Absolute lymphocyte countOrd ered By: Gaetano Cleary on 05-09-2023 Lymphocytes Auto (Unsp spec) [#/Vol] 1.22 10*3/uL 0.83-4.51 [facility] Automated lymphocyte count a s percentage of total leukocytesOrdered By: Gaetano Cleary on 05-09-2023 Lymphocytes/100 WBC Auto (Unsp spec) 20.0 % 19-41 [facility] Basophil percentageOrdered B y: Gaetano Cleary on 05-09-2023 Basophils/100 WBC (Bld) 0.7 % 0-1 [facility] Eosinophils/100 WBC (Bld) 2.3 % 0-5 [facility] Hemoglobin (Bld) [Mass/Vol] 12.3 g/dL 12.0-15. 0 [facility] Monocytes/100 WBC (Bld) 8.4 % 0-10 [facility] Neutrophils (Bld) [#/Vol] 4.2 10*3/uL 2.0-7.7 [facility] Neutrophils/100 WBC (Bld) 68.1 % 47-70 [facility] WBC (Bld) [#/Vol] 6.1 10*3/uL 4.4-11.0 [facility] Determination of erythrocyte mean corpuscular volume (MCV)Ordered By: Gaetano Cleary on 05-09-2023 MCV (RBC) [Entitic vol] 100.8 fL 81-99 [facility] Erythrocyte distribution wid th ratioOrdered By: Gaetano Cleary on 05-09-2023 Erythrocyte distribution width (RBC) [Ratio] 13.2 % 11.6-14.6 [facility] Erythrocyte distribution wid th standard deviationOrdered By: Gaetano Cleary on 05-09-2023 Erythrocyte distribution width (RBC) [Entitic vol] 49.1 fL 35.1-43.9 [facility] Erythrocyte sedimentation ra teOrdered By: Gaetano Cleary on 05-09-2023 ESR (Bld) [Velocity] 18 mm/h 0-[address] [facility] Hematocrit Auto (Bld) [Volum e fraction]Ordered By: Gaetano Cleary on 05-09-2023 Hematocrit (Bld) [Volume fraction] 39.9 % 37-47 [facility] Immature granulocytes/100 WB C Auto (Bld)Ordered By: Gaetano Cleary on 05-09-2023 Immature granulocytes/100 WBC (Bld) 0.500 % 0.0-0.9 [facility] Comment on above: IG% - Immature Granu locytes (promyelocytes, myelocytes and metamyelocytes) > 1% indicates that a LEFT SHIFT is Present. Laboratory - Hematology and Cell countsOrdered By: Gaetano Cleary on 05-09-2023 MCH (RBC) [Entitic mass] 31.1 pg 27.0-32.0 [facility] MCHC (RBC) [Mass/Vol] 30.8 g/dL 32-36 [facility] Nucleated RBC/100 WBC (Bld) [Ratio] 0 % 0-5 [facility] Platelet mean volume (Bld) [Entitic vol] 9.8 fL 6.2-12.0 [facility] Platelets (Bld) [#/Vol] 225 10*3/uL 150-450 [facility] No Panel InformationOrdered By: Gaetano Cleary on 05-09-2023 C-Reactive Protein Extended Range < 2.90 mg/L 0.0-3.0 [facility] Comment on above: C-Reactive Protein ( CRP) provides useful information for thediagnosis, therapy and monitoring of inflammatory processesand associated diseases. For the evaluation of Relative Riskfor Cardiovascular Disease, a High Sensitivity CRP (HSCRP)should be ordered. RBC Auto (Bld) [#/Vol]Ordere d By: Gaetano Cleary on 05-09-2023 RBC (Bld) [#/Vol] 3.96 10*6/uL 4.2-5.4 [facility] Absolute lymphocyte countOrd ered By: Michael Snowden on 11-27-2022 Lymphocytes Auto (Unsp spec) [#/Vol] 1.24 10*3/uL 0.83-4.51 [facility] Basophil percentageOrdered B y: Michael Snowden on 11-27-2022 Basophils/100 WBC (Bld) 0.8 % 0-1 [facility] Bilirubin [Mass/Vol] 0.30 mg/dL 0.20-1.[address] [facility] Comment on above: For patients on eltr ombopag therapy, use of Dimension Pella TBIL is not recommended. Chloride [Moles/Vol] 110 mmol/L 98-[address] [facility] Cholesterol [Mass/Vol] 169 mg/dL <200 [facility] Comment on above: <200 mg/dL Desirable 200-240 mg/dL Borderline >240 mg/dL High Risk Eosinophils/100 WBC (Bld) 2.5 % 0-5 [facility] Glucose [Mass/Vol] 93 mg/dL 74-106 [facility] Neutrophils (Bld) [#/Vol] 3.3 10*3/uL 2.0-7.7 [facility] Neutrophils/100 WBC (Bld) 63.1 % 47-70 [facility] Potassium [Moles/Vol] 4.1 mmol/L 3.5-5.1 [facility] Protein [Mass/Vol] 7.4 g/dL 6.4-8.2 [facility] Sodium [Moles/Vol] 143 mmol/L 136-145 [facility] Triglyceride [Mass/Vol] 57 mg/dL <199 [facility] Comment on above: The drugs N-Acetylcy steine and Metamizole may falsely depress this assay.Serum Triglycerides Reference Interval Normal <150 mg/dL Borderline high 150 - 199 mg/dL High 200 - 499 mg/dL Very High > or = 500 mg/dL WBC (Bld) [#/Vol] 5.2 10*3/uL 4.4-11.0 [facility] Blood erythrocytes count (nu mber/volume)Ordered By: Michael Snowden on 11-27-2022 RBC (Bld) [#/Vol] 3.78 10*6/uL 4.2-5.4 [facility] Blood hemoglobin measurement (mass/volume)Ordered By: Michael Snowden on 11-27-2022 Hemoglobin (Bld) [Mass/Vol] 11.9 g/dL 12.0-15. 0 [facility] Blood lymphocytes/100 leukoc ytesOrdered By: Michael Snowden on 11-27-2022 Lymphocytes/100 WBC (Bld) 23.8 % 19-41 [facility] Blood monocytes/100 leukocyt esOrdered By: Michael Snowden on 11-27-2022 Monocytes/100 WBC (Bld) 9.4 % 0-10 [facility] Blood platelet mean volumeOr dered By: Michael Snowden on 11-27-2022 Platelet mean volume (Bld) [Entitic vol] 10.0 fL 6.2-12.0 [facility] Determination of erythrocyte mean corpuscular volume (MCV)Ordered By: Michael Snowden on 11-27-2022 MCV (RBC) [Entitic vol] 100.0 fL 81-99 [facility] Hematocrit Auto (Bld) [Volum e fraction]Ordered By: Michael Snowden on 11-27-2022 Hematocrit (Bld) [Volume fraction] 37.8 % 37-47 [facility] Laboratory - Chemistry and C hemistry - challengeOrdered By: Michael Snowden on 11-27-2022 ALP [Catalytic activity/Vol] 68 U/L 45-117 [facility] ALT [Catalytic activity/Vol] 22 U/L 13-56 [facility] CO2 [Moles/Vol] 28.0 mmol/L 21.0-32.0 [facility] Globulin (S) [Mass/Vol] 4.1 g/dL 2.2-4.2 [facility] Urea nitrogen/Creatinine [Mass ratio] 21.3 mg/mg 10-20 [facility] Laboratory - Hematology and Cell countsOrdered By: Michael Snowden on 11-27-2022 Erythrocyte distribution width (RBC) [Entitic vol] 47.8 fL 35.1-43.9 [facility] Erythrocyte distribution width (RBC) [Ratio] 13.1 % 11.6-14.6 [facility] Immature granulocytes/100 WBC (Bld) 0.400 % 0.0-0.9 [facility] Comment on above: IG% - Immature Granu locytes (promyelocytes, myelocytes and metamyelocytes) > 1% indicates that a LEFT SHIFT is Present. MCH (RBC) [Entitic mass] 31.5 pg 27.0-32.0 [facility] Nucleated RBC/100 WBC (Bld) [Ratio] 0 % 0-5 [facility] MCHC Auto (RBC) [Mass/Vol]Or dered By: Michael Snowden on 11-27-2022 MCHC (RBC) [Mass/Vol] 31.5 g/dL 32-36 [facility] No Panel InformationOrdered By: Michael Snowden on 11-27-2022 Estimated GFR (MDRD) Amer 112 mL/min >60 [facility] Comment on above: GFR Calc Estimated GFR (MDRD) Non-Af Amer 93 mL/min >60 [facility] Comment on above: Non- GFR Calc Thyroid Stimulating Hormone (TSH) 0.84 uIU/mL 0.358-3.74 [facility] Vitamin D 25-Hydroxy 87.7 ng/mL [facility] Comment on above: Vitamin D 25(OH) Sta tus Range Deficiency <20 ng/mL (50nmol/L) Insufficiency 20 - 30 ng/mL (50 - 75 nmol/L) Sufficiency 30 - 100 ng/mL (75 - 250 nmol/L) Toxicity >100 ng/mL (>250 nmol/L) Platelets bldOrdered By: Michael Snowden on 11-27-2022 Platelets (Bld) [#/Vol] 214 10*3/uL 150-450 [facility] Serum or plasma albumin gianluca urement (mass/volume)Ordered By: Michael Snowden on 11-27-2022 Albumin [Mass/Vol] 3.3 g/dL 3.2-5.0 [facility] Serum or plasma albumin/glob ulin mass ratioOrdered By: Michael Snowden 11-27-2022 Albumin/Globulin [Mass ratio] 0.8 {ratio} 0.9-2.4 [facility] Serum or plasma calcium gianluca urement (mass/volume)Ordered By: Michael Snowden 11-27-2022 Calcium [Mass/Vol] 9.2 mg/dL 8.5-10.1 [facility] Serum or plasma cholesterol in HDL measurement (mass/volume)Ordered By: Michael Snowden 11-27-2022 Cholesterol in HDL [Mass/Vol] 66 mg/dL >40 [facility] Comment on above: The drugs N-Acetylcy steine and Metamizole may falsely depress this assay. Reference Range HDL <40 mg/dL Low HDL Cholesterol HDL >or= 60 mg/dL High HDL Cholesterol Serum or plasma cholesterol in VLDL measurement (mass/volume)Ordered By: Michael Snowden 11-27-2022 Cholesterol in VLDL [Mass/Vol] 11 mg/dL 5-40 [facility] Serum or plasma creatinine m easurement (mass/volume)Ordered By: Michael Snowden 11-27-2022 Creatinine [Mass/Vol] 0.66 mg/dL 0.55-1.02 [facility] Comment on above: The validity of the calculated GFR & GFRAA in patients over 70 years has not been determined. Clinical correlation is essential. Serum or plasma low density lipoprotein (LDL) cholesterol measurement (mass/volume)Ordered By: Michael Snowden 11-27-2022 Cholesterol in LDL [Mass/Vol] 92 mg/dL 0-130 [facility] Serum or plasma urea nitroge n measurement (mass/volume)Ordered By: Michael Snowden 11-27-2022 Urea nitrogen [Mass/Vol] 14 mg/dL 7-18 [facility] Thin prep Papanicolaou smear with manual screeningOrdered By: Michael Snowden on 11-27-2022 Thin prep Papanicolaou smear with manual screening 21 U/L 15-[address] [facility] Thin prep Papanicolaou smear with manual screening 5 5-[address] [facility] No Panel InformationOrdered By: Sae Brandt on 08-05-2022 Stool Calprotectin 32 ug/g 0-120 [facility] Comment on above: Concentration Interp retation Follow-Up<16 - 50 ug/g Normal None>50 -120 ug/g Borderline Re-evaluate in 4-6 weeks >120 ug/g Abnormal Repeat as clinically indicatedPerformed at: [employer] [id number] Director: Alaina Alex MD, Phone: [phone] Stool Pancreatic Elastase 202 >200 [facility] Comment on above: Result Units: ug [address]./g Severe Pancreatic Insufficiency: <100 Moderate Pancreatic Insufficiency: 100 - 200 Normal: >200Performed at: [employer] [id number] Director: Alaina Alex MD, Phone: [phone] Stool lactoferrin detection by immunoassayOrdered By: Sae Brandt on 08-05-2022 Lactoferrin IA Ql (Stl) [facility] Lactoferrin IA Ql (Stl) [facility] Absolute lymphocyte countOrd ered By: Sae Brandt on 06-07-2022 Lymphocytes Auto (Unsp spec) [#/Vol] 1.34 10*3/uL 0.83-4.51 [facility] Atypical perinuclear antineu trophil cytoplasmic antibodies measurementOrdered By: Sae Brandt on 06-07-2022 Neutrophil cytoplasmic Ab.perinuclear.atypical IF (S) [Titer] <1:20 titer Neg:<1:20 [facility] Comment on above: The atypical pANCA p attern has been observed in asignificant percentage of patients with ulcerative colitis,primary sclerosing cholangitis and autoimmune hepatitis.Performed at: [employer] [id number] Director: Olivier Jenkins PhD, Phone: [phone] at: - [employer] [place], [place] [id number] Director: Alaina Alex MD, Phone: [phone] Basophil percentageOrdered B y: Sae Friend on 06-07-2022 Basophil percentage < 0.2 AI 0.0-0.9 [facility] Basophils/100 WBC (Bld) 0.9 % 0-1 [facility] Bilirubin [Mass/Vol] 0.40 mg/dL 0.20-1.[address] [facility] Comment on above: For patients on eltr ombopag therapy, use of Dimension Pella TBIL is not recommended. Chloride [Moles/Vol] 103 mmol/L 98-[address] [facility] Eosinophils/100 WBC (Bld) 2.3 % 0-5 [facility] Glucose [Mass/Vol] 85 mg/dL 74-106 [facility] LDH [Catalytic activity/Vol] 226 U/L 84-246 [facility] Neutrophils (Bld) [#/Vol] 4.5 10*3/uL 2.0-7.7 [facility] Neutrophils/100 WBC (Bld) 67.7 % 47-70 [facility] Potassium [Moles/Vol] 3.6 mmol/L 3.5-5.1 [facility] Protein [Mass/Vol] 7.6 g/dL 6.4-8.2 [facility] Sodium [Moles/Vol] 140 mmol/L 136-145 [facility] WBC (Bld) [#/Vol] 6.6 10*3/uL 4.4-11.0 [facility] Blood erythrocytes count (nu mber/volume)Ordered By: Sae Brandt on 06-07-2022 RBC (Bld) [#/Vol] 4.03 10*6/uL 4.2-5.4 [facility] Blood hemoglobin measurement (mass/volume)Ordered By: Sae Brandt on 06-07-2022 Hemoglobin (Bld) [Mass/Vol] 13.0 g/dL 12.0-15. 0 [facility] Blood lymphocytes/100 leukoc ytesOrdered By: Sae Brandt on 06-07-2022 Lymphocytes/100 WBC (Bld) 20.2 % 19-41 [facility] Blood monocytes/100 leukocyt esOrdered By: Sae Brandt on 06-07-2022 Monocytes/100 WBC (Bld) 8.6 % 0-10 [facility] Blood platelet mean volumeOr dered By: Sae Brandt on 06-07-2022 Platelet mean volume (Bld) [Entitic vol] 9.5 fL 6.2-12.0 [facility] Determination of erythrocyte mean corpuscular volume (MCV)Ordered By: Sae Brandt on 06-07-2022 MCV (RBC) [Entitic vol] 99.5 fL 81-99 [facility] Erythrocyte sedimentation ra teOrdered By: Sae Brandt on 06-07-2022 ESR (Bld) [Velocity] 30 mm/h 0-[address] [facility] Hematocrit Auto (Bld) [Volum e fraction]Ordered By: Sae Brandt on 06-07-2022 Hematocrit (Bld) [Volume fraction] 40.1 % 37-47 [facility] Interpretation of serum or p lasma protein pattern by immunofixation (narrative resultOrdered By: Sae Brandt on 06-07-2022 Protein Fractions Immunofixation Micheal [Interp] See comment [facility] Comment on above: NOT OBSERVED Laboratory - Chemistry and C hemistry - challengeOrdered By: Sae Brandt on 06-07-2022 ALP [Catalytic activity/Vol] 72 U/L 45-117 [facility] ALT [Catalytic activity/Vol] 25 U/L 13-56 [facility] CO2 [Moles/Vol] 29.0 mmol/L 21.0-32.0 [facility] Urea nitrogen/Creatinine [Mass ratio] 16.9 mg/mg 10-20 [facility] Laboratory - Hematology and Cell countsOrdered By: Sae Brandt on 06-07-2022 Erythrocyte distribution width (RBC) [Entitic vol] 48.0 fL 35.1-43.9 [facility] Erythrocyte distribution width (RBC) [Ratio] 13.1 % 11.6-14.6 [facility] Immature granulocytes/100 WBC (Bld) 0.300 % 0.0-0.9 [facility] Comment on above: IG% - Immature Granu locytes (promyelocytes, myelocytes and metamyelocytes) > 1% indicates that a LEFT SHIFT is Present. MCH (RBC) [Entitic mass] 32.3 pg 27.0-32.0 [facility] Nucleated RBC/100 WBC (Bld) [Ratio] 0 % 0-5 [facility] MCHC Auto (RBC) [Mass/Vol]Or dered By: Sae Brandt on 06-07-2022 MCHC (RBC) [Mass/Vol] 32.4 g/dL 32-36 [facility] No Panel InformationOrdered By: Sae Brandt on 06-07-2022 Addendum Document Comment . [facility] Comment on above: Protein electrophore sis scan will follow via computer,mail, or ice scraper delivery. Centromere B Antibody 0.3 AI 0.0-0.9 [facility] Endomysial IgA Antibody Negative Negative [facility] Estimated GFR (MDRD) Amer 94 mL/min >60 [facility] Comment on above: GFR Calc Estimated GFR (MDRD) Non-Af Amer 78 mL/min >60 [facility] Comment on above: Non- GFR Calc Immunoglobulin E 25 IU/mL 6-495 [facility] Miscellaneous Test See comment [facility] Comment on above: TEST RESULT LIMITSIB [...] developed and its performance characteristics determined by [employer]. It has not been cleared or approved by the Food and Drug Administration. The FDA has determined that such clearance or approval is not necessary.Atypical pANCA Negative Negative Comments Pattern is not suggestive of Inflammatory Bowel Disease TESTING PERFORMED AT [facility]. ORIGINAL REPORT ON FILE IN LAB CONTAINS ADDITIONAL TEST SITE INFORMATION. [employer] Antibody <0.2 AI 0.0-0.9 [facility] Platelets bldOrdered By: Raúl Brandt on 06-07-2022 Platelets (Bld) [#/Vol] 214 10*3/uL 150-450 [facility] Serum DNA double strand anti body assay (units/volume)Ordered By: Sae Brandt on 06-07-2022 DNA double strand Ab Qn (S) 5 [IU]/mL 0-9 [facility] Comment on above: Negative <5 Equivoca l 5 - 9 Positive >9 Serum Jaci-1 antibody assay (u nits/volume)Ordered By: Sae Brandt on 06-07-2022 Jaci-1 extractable nuclear Ab Qn (S) <0.2 AI 0.0-0.9 [facility] Serum Scl-70 extractable nuc lear antibody assay (units/volume)Ordered By: Sae Brandt on 06-07-2022 SCL-70 extractable nuclear Ab Qn (S) <0.2 AI 0.0-0.9 [facility] Serum Espinosa extractable nucl ear antibody detectionOrdered By: Sae Brandt on 06-07-2022 Epsinosa extractable nuclear Ab Ql (S) <0.2 AI 0.0-0.9 [facility] Serum sdega-2-mpvdusco measu rement by electrophoresisOrdered By: Sae Brandt on 06-07-2022 Alpha 1 globulin Elph [Mass/Vol] 0.3 g/dL 0.0-0.4 [facility] Alpha 1 globulin Elph [Mass/Vol] 0.7 g/dL 0.4-1.0 [facility] Serum classic neutrophil cyt oplasmic antibody assay (units/volume)Ordered By: Sae Brandt on 06-07-2022 Neutrophil cytoplasmic Ab.classic Qn (S) <1:20 titer Neg:<1:20 [facility] Serum globulin measurement ( mass/volume)Ordered By: Sae Brandt on 06-07-2022 Globulin (S) [Mass/Vol] 3.6 g/dL 2.2-3.9 [facility] Serum or plasma C reactive p rotein measurement (mass/volume)Ordered By: Sae Brandt on 06-07-2022 CRP [Mass/Vol] mg/L 0.0-3.0 [facility] Comment on above: C-Reactive Protein ( CRP) provides useful information for thediagnosis, therapy and monitoring of inflammatory processesand associated diseases. For the evaluation of Relative Riskfor Cardiovascular Disease, a High Sensitivity CRP (HSCRP)should be ordered. Serum or plasma IgA measurem ent (mass/volume)Ordered By: Sae Brandt on 06-07-2022 IgA [Mass/Vol] 338 mg/dL 64-422 [facility] Serum or plasma IgG measurem ent (mass/volume)Ordered By: Sae Brandt on 06-07-2022 IgG [Mass/Vol] 1428 mg/dL [phone] [facility] Serum or plasma IgM measurem ent (mass/volume)Ordered By: Sae Brandt on 06-07-2022 IgM [Mass/Vol] 92 mg/dL 26-217 [facility] Serum or plasma albumin gianluca urement (mass/volume)Ordered By: Sae Brandt on 06-07-2022 Albumin [Mass/Vol] 3.6 g/dL 2.9-4.4 [facility] Serum or plasma albumin/glob ulin mass ratioOrdered By: Sae Brandt on 06-07-2022 Albumin/Globulin [Mass ratio] 0.9 {ratio} 0.9-2.4 [facility] Serum or plasma beta globuli n measurement by electrophoresis (mass/volume)Ordered By: Sae Brandt on 06-07-2022 Beta globulin Elph [Mass/Vol] 1.0 g/dL 0.7-1.3 [facility] Serum or plasma calcium gianluca urement (mass/volume)Ordered By: Sae Brandt on 06-07-2022 Calcium [Mass/Vol] 9.5 mg/dL 8.5-10.1 [facility] Serum or plasma creatinine m easurement (mass/volume)Ordered By: Sae Brandt on 06-07-2022 Creatinine [Mass/Vol] 0.77 mg/dL 0.55-1.02 [facility] Comment on above: The validity of the calculated GFR & GFRAA in patients over 70 years has not been determined. Clinical correlation is essential. Serum or plasma gamma globul in measurement by electrophoresis (mass/volume)Ordered By: Sae Brandt on 06-07-2022 Gamma globulin Elph [Mass/Vol] 1.6 g/dL 0.4-1.8 [facility] Serum or plasma immunoelectr ophoresis interpretation (nominal result)Ordered By: Sae Brandt on 06-07-2022 Interpretation IEP [Interp] Comment . [facility] Comment on above: No monoclonality det ected. Serum or plasma urea nitroge n measurement (mass/volume)Ordered By: Sae Brandt on 06-07-2022 Urea nitrogen [Mass/Vol] 13 mg/dL 7-18 [facility] Serum perinuclear neutrophil cytoplasmic antibody titer by immunofluorescenceOrdered By: Sea Brandt on 06-07-2022 Neutrophil cytoplasmic Ab.perinuclear IF (S) [Titer] <1:20 titer Neg:<1:20 [facility] Comment on above: The presence of posi tive fluorescence exhibiting P-ANCA orC-ANCA patterns alone is not specific for the diagnosis ofWegener's Granulomatosis (WG) or microscopic polyangiitis.Decisions about treatment should not be based solely onANCA IFA results. The [employer] ANCA Group Consensusrecommends follow up testing of positive sera with both KS-3 and MPO-ANCA enzyme immunoassays. As many as 5% serumsamples are positive only by EIA. Ref. AM J Clin [id number];111:507-513. Serum tissue transglutaminas e IgA antibody assay (units/volume)Ordered By: Sae Brandt on 06-07-2022 tTG IgA Qn (S) <2 U/mL 0-3 [facility] Comment on above: Negative 0 - [...] manual screening 23 U/L 15-[address] [facility] Thin prep Papanicolaou smear with manual screening 8 5-[address] [facility] Thin prep Papanicolaou smear with manual screening 1.1 0.7-1.[address] [facility] Total protein bloodOrdered B y: Sae Friend on 06-07-2022 Protein [Mass/Vol] 7.2 g/dL 6.0-8.5 [facility] Absolute lymphocyte countOrd ered By: Dr. Snowden on 03-26-2022 Lymphocytes Auto (Unsp spec) [#/Vol] 1.21 10*3/uL 0.83-4.51 [facility] Basophil percentageOrdered B y: Dr. Snowden on 03-26-2022 Basophils/100 WBC (Bld) 0.5 % 0-1 [facility] Bilirubin [Mass/Vol] 0.40 mg/dL 0.20-1.[address] [facility] Comment on above: For patients on eltr ombopag therapy, use of Dimension Pella TBIL is not recommended. Chloride [Moles/Vol] 104 mmol/L 98-[address] [facility] Cholesterol [Mass/Vol] 176 mg/dL <200 [facility] Comment on above: <200 mg/dL Desirable 200-240 mg/dL Borderline >240 mg/dL High Risk Eosinophils/100 WBC (Bld) 1.9 % 0-5 [facility] Glucose [Mass/Vol] 88 mg/dL 74-106 [facility] Neutrophils (Bld) [#/Vol] 4.0 10*3/uL 2.0-7.7 [facility] Neutrophils/100 WBC (Bld) 67.6 % 47-70 [facility] Potassium [Moles/Vol] 4.1 mmol/L 3.5-5.1 [facility] Protein [Mass/Vol] 7.0 g/dL 6.4-8.2 [facility] Sodium [Moles/Vol] 140 mmol/L 136-145 [facility] Triglyceride [Mass/Vol] 113 mg/dL <199 [facility] Comment on above: The drugs N-Acetylcy steine and Metamizole may falsely depress this assay.Serum Triglycerides Reference Interval Normal <150 mg/dL Borderline high 150 - 199 mg/dL High 200 - 499 mg/dL Very High > or = 500 mg/dL WBC (Bld) [#/Vol] 5.9 10*3/uL 4.4-11.0 [facility] Blood erythrocytes count (nu mber/volume)Ordered By: Dr. Snowden on 03-26-2022 RBC (Bld) [#/Vol] 4.01 10*6/uL 4.2-5.4 [facility] Blood hemoglobin measurement (mass/volume)Ordered By: Dr. Snowden on 03-26-2022 Hemoglobin (Bld) [Mass/Vol] 12.6 g/dL 12.0-15. 0 [facility] Blood lymphocytes/100 leukoc ytesOrdered By: Dr. Snowden on 03-26-2022 Lymphocytes/100 WBC (Bld) 20.4 % 19-41 [facility] Blood monocytes/100 leukocyt esOrdered By: Dr. Snowden on 03-26-2022 Monocytes/100 WBC (Bld) 9.3 % 0-10 [facility] Blood platelet mean volumeOr dered By: Dr. Snowden on 03-26-2022 Platelet mean volume (Bld) [Entitic vol] 10.1 fL 6.2-12.0 [facility] Determination of erythrocyte mean corpuscular volume (MCV)Ordered By: Dr. Snowden on 03-26-2022 MCV (RBC) [Entitic vol] 99.0 fL 81-99 [facility] Hematocrit Auto (Bld) [Volum e fraction]Ordered By: Dr. Snowden on 03-26-2022 Hematocrit (Bld) [Volume fraction] 39.7 % 37-47 [facility] Laboratory - Chemistry and C hemistry - challengeOrdered By: Dr. Snowden on 03-26-2022 ALP [Catalytic activity/Vol] 64 U/L 45-117 [facility] ALT [Catalytic activity/Vol] 23 U/L 13-56 [facility] CO2 [Moles/Vol] 28.0 mmol/L 21.0-32.0 [facility] Globulin (S) [Mass/Vol] 3.6 g/dL 2.2-4.2 [facility] Urea nitrogen/Creatinine [Mass ratio] 18.9 mg/mg 10-20 [facility] Laboratory - Hematology and Cell countsOrdered By: Dr. Snowden on 03-26-2022 Erythrocyte distribution width (RBC) [Entitic vol] 47.1 fL 35.1-43.9 [facility] Erythrocyte distribution width (RBC) [Ratio] 13.1 % 11.6-14.6 [facility] Immature granulocytes/100 WBC (Bld) 0.300 % 0.0-0.9 [facility] Comment on above: IG% - Immature Granu locytes (promyelocytes, myelocytes and metamyelocytes) > 1% indicates that a LEFT SHIFT is Present. MCH (RBC) [Entitic mass] 31.4 pg 27.0-32.0 [facility] Nucleated RBC/100 WBC (Bld) [Ratio] 0 % 0-5 [facility] MCHC Auto (RBC) [Mass/Vol]Or dered By: Dr. Snowden on 03-26-2022 MCHC (RBC) [Mass/Vol] 31.7 g/dL 32-36 [facility] No Panel InformationOrdered By: Dr. Snowden on 03-26-2022 Estimated GFR (MDRD) Amer 98 mL/min >60 [facility] Comment on above: GFR Calc Estimated GFR (MDRD) Non-Af Amer 81 mL/min >60 [facility] Comment on above: Non- GFR Calc Thyroid Stimulating Hormone (TSH) 0.92 uIU/mL 0.358-3.74 [facility] Vitamin D 25-Hydroxy 78.9 ng/mL [facility] Comment on above: Vitamin D 25(OH) Sta tus Range Deficiency <20 ng/mL (50nmol/L) Insufficiency 20 - 30 ng/mL (50 - 75 nmol/L) Sufficiency 30 - 100 ng/mL (75 - 250 nmol/L) Toxicity >100 ng/mL (>250 nmol/L) Platelets bldOrdered By: Dr. Snowden on 03-26-2022 Platelets (Bld) [#/Vol] 221 10*3/uL 150-450 [facility] Serum or plasma albumin gianluca urement (mass/volume)Ordered By: Dr. Snowden on 03-26-2022 Albumin [Mass/Vol] 3.4 g/dL 3.2-5.0 [facility] Serum or plasma albumin/glob ulin mass ratioOrdered By: Dr. Snowden on 03-26-2022 Albumin/Globulin [Mass ratio] 0.9 {ratio} 0.9-2.4 [facility] Serum or plasma calcium gianluca urement (mass/volume)Ordered By: Dr. Snowden on 03-26-2022 Calcium [Mass/Vol] 8.8 mg/dL 8.5-10.1 [facility] Serum or plasma cholesterol in HDL measurement (mass/volume)Ordered By: Dr. Snowden on 03-26-2022 Cholesterol in HDL [Mass/Vol] 60 mg/dL >40 [facility] Comment on above: The drugs N-Acetylcy steine and Metamizole may falsely depress this assay. Reference Range HDL <40 mg/dL Low HDL Cholesterol HDL >or= 60 mg/dL High HDL Cholesterol Serum or plasma cholesterol in VLDL measurement (mass/volume)Ordered By: Dr. Snowden on 03-26-2022 Cholesterol in VLDL [Mass/Vol] 23 mg/dL 5-40 [facility] Serum or plasma creatinine m easurement (mass/volume)Ordered By: Dr. Snowden on 03-26-2022 Creatinine [Mass/Vol] 0.74 mg/dL 0.55-1.02 [facility] Comment on above: The validity of the calculated GFR & GFRAA in patients over 70 years has not been determined. Clinical correlation is essential. Serum or plasma low density lipoprotein (LDL) cholesterol measurement (mass/volume)Ordered By: Dr. Snowden on 03-26-2022 Cholesterol in LDL [Mass/Vol] 93 mg/dL 0-130 [facility] Serum or plasma urea nitroge n measurement (mass/volume)Ordered By: Dr. Snowden on 03-26-2022 Urea nitrogen [Mass/Vol] 14 mg/dL 7-18 [facility] Thin prep Papanicolaou smear with manual screeningOrdered By: Dr. Snowden on 03-26-2022 Thin prep Papanicolaou smear with manual screening 18 U/L 15-[address] [facility] Thin prep Papanicolaou smear with manual screening 8 5-[address] [facility] Absolute lymphocyte counton 09-25-2021 Lymphocytes Auto (Unsp spec) [#/Vol] 1.32 10*3/uL 0.83-4.51 [facility] Work Phone: Basophil percentageon 2021 Basophils/100 WBC (Bld) 0.6 % 0-1 [facility] Work Phone: Bilirubin [Mass/Vol] 0.40 mg/dL 0.20-1.[address] [facility] Work Phone: Comment on above: For patients on eltr ombopag therapy, use of Dimension Pella TBIL is not recommended. Chloride [Moles/Vol] 106 mmol/L 98-[address] [facility] Work Phone: [phone] Cholesterol [Mass/Vol] 170 mg/dL <200 [facility] Work Phone: [phone] Comment on above: <200 mg/dL Desirable 200-240 mg/dL Borderline >240 mg/dL High Risk Eosinophils/100 WBC (Bld) 2.4 % 0-5 [facility] Work Phone: Glucose [Mass/Vol] 96 mg/dL 74-106 [facility] Work Phone: Neutrophils (Bld) [#/Vol] 4.8 10*3/uL 2.0-7.7 [facility] Work Phone: Neutrophils/100 WBC (Bld) 68.8 % 47-70 [facility] Work Phone: Potassium [Moles/Vol] 3.9 mmol/L 3.5-5.1 [facility] Work Phone: Protein [Mass/Vol] 7.2 g/dL 6.4-8.2 [facility] Work Phone: Sodium [Moles/Vol] 141 mmol/L 136-145 [facility] Work Phone: Triglyceride [Mass/Vol] 93 mg/dL <199 [facility] Work Phone: Comment on above: The drugs N-Acetylcy steine and Metamizole may falsely depress this assay.Serum Triglycerides Reference Interval Normal <150 mg/dL Borderline high 150 - 199 mg/dL High 200 - 499 mg/dL Very High > or = 500 mg/dL WBC (Bld) [#/Vol] 7.0 10*3/uL 4.4-11.0 [facility] Work Phone: Blood erythrocytes count (nu mber/volume)on 09-25-2021 RBC (Bld) [#/Vol] 4.05 10*6/uL 4.2-5.4 [facility] Work Phone: Blood hemoglobin measurement (mass/volume)on 09-25-2021 Hemoglobin (Bld) [Mass/Vol] 12.8 g/dL 12.0-15. 0 [facility] Work Phone: Blood lymphocytes/100 leukoc yteson 09-25-2021 Lymphocytes/100 WBC (Bld) 18.9 % 19-41 [facility] Work Phone: Blood monocytes/100 leukocyt eson 09-25-2021 Monocytes/100 WBC (Bld) 9.0 % 0-10 [facility] Work Phone: [phone] Blood platelet mean volumeon 09-25-2021 Platelet mean volume (Bld) [Entitic vol] 10.1 fL 6.2-12.0 [facility] Work Phone: Determination of erythrocyte mean corpuscular volume (MCV)on 09-25-2021 MCV (RBC) [Entitic vol] 98.3 fL 81-99 [facility] Work Phone: Hematocrit Auto (Bld) [Volum e fraction]on 09-25-2021 Hematocrit (Bld) [Volume fraction] 39.8 % 37-47 [facility] Work Phone: Laboratory - Chemistry and C hemistry - challengeon 09-25-2021 ALP [Catalytic activity/Vol] 62 U/L 45-117 [facility] Work Phone: ALT [Catalytic activity/Vol] 20 U/L 13-56 [facility] Work Phone: CO2 [Moles/Vol] 29.0 mmol/L 21.0-32.0 [facility] Work Phone: Globulin (S) [Mass/Vol] 3.7 g/dL 2.2-4.2 [facility] Work Phone: Urea nitrogen/Creatinine [Mass ratio] 17.0 mg/mg 10-20 [facility] Work Phone: Laboratory - Hematology and Cell countson 09-25-2021 Erythrocyte distribution width (RBC) [Entitic vol] 47.1 fL 35.1-43.9 [facility] Work Phone: Erythrocyte distribution width (RBC) [Ratio] 13.2 % 11.6-14.6 [facility] Work Phone: Immature granulocytes/100 WBC (Bld) 0.300 % 0.0-0.9 [facility] Work Phone: Comment on above: IG% - Immature Granu locytes (promyelocytes, myelocytes and metamyelocytes) > 1% indicates that a LEFT SHIFT is Present. MCH (RBC) [Entitic mass] 31.6 pg 27.0-32.0 [facility] Work Phone: Nucleated RBC/100 WBC (Bld) [Ratio] 0 % 0-5 [facility] Work Phone: MCHC Auto (RBC) [Mass/Vol]on 09-25-2021 MCHC (RBC) [Mass/Vol] 32.2 g/dL 32-36 [facility] Work Phone: No Panel Informationon 09-25 Estimated GFR (MDRD) Amer 95 mL/min >60 [facility] Work Phone: Comment on above: GFR Calc Estimated GFR (MDRD) Non-Af Amer 78 mL/min >60 [facility] Work Phone: Comment on above: Non- GFR Calc Thyroid Stimulating Hormone (TSH) 0.89 uIU/mL 0.358-3.74 [facility] Work Phone: Vitamin D 25-Hydroxy 76.5 ng/mL [facility] Work Phone: Comment on above: Vitamin D 25(OH) Sta tus Range Deficiency <20 ng/mL (50nmol/L) Insufficiency 20 - 30 ng/mL (50 - 75 nmol/L) Sufficiency 30 - 100 ng/mL (75 - 250 nmol/L) Toxicity >100 ng/mL (>250 nmol/L) Platelets bldon 09-25-2021 Platelets (Bld) [#/Vol] 227 10*3/uL 150-450 [facility] Work Phone: Serum or plasma albumin gianluca urement (mass/volume)on 09-25-2021 Albumin [Mass/Vol] 3.5 g/dL 3.2-5.0 [facility] Work Phone: Serum or plasma albumin/glob ulin mass ratioon 09-25-2021 Albumin/Globulin [Mass ratio] 0.9 {ratio} 0.9-2.4 [facility] Work Phone: Serum or plasma calcium gianluca urement (mass/volume)on 09-25-2021 Calcium [Mass/Vol] 9.2 mg/dL 8.5-10.1 [facility] Work Phone: Serum or plasma cholesterol in HDL measurement (mass/volume)on 09-25-2021 Cholesterol in HDL [Mass/Vol] 60 mg/dL >40 [facility] Work Phone: Comment on above: The drugs N-Acetylcy steine and Metamizole may falsely depress this assay. Reference Range HDL <40 mg/dL Low HDL Cholesterol HDL >or= 60 mg/dL High HDL Cholesterol Serum or plasma cholesterol in VLDL measurement (mass/volume)on 09-25-2021 Cholesterol in VLDL [Mass/Vol] 19 mg/dL 5-40 [facility] Work Phone: Serum or plasma creatinine m easurement (mass/volume)on 09-25-2021 Creatinine [Mass/Vol] 0.76 mg/dL 0.55-1.02 [facility] Work Phone: Comment on above: The validity of the calculated GFR & GFRAA in patients over 70 years has not been determined. Clinical correlation is essential. Serum or plasma low density lipoprotein (LDL) cholesterol measurement (mass/volume)on 09-25-2021 Cholesterol in LDL [Mass/Vol] 91 mg/dL 0-130 [facility] Work Phone: Serum or plasma urea nitroge n measurement (mass/volume)on 09-25-2021 Urea nitrogen [Mass/Vol] 13 mg/dL 7-18 [facility] Work Phone: Thin prep Papanicolaou smear with manual screeningon 09-25-2021 Thin prep Papanicolaou smear with manual screening 15 U/L 15-[address] [facility] Work Phone: Thin prep Papanicolaou smear with manual screening 6 5-[address] [facility] Work Phone: Lab Report: Basic Metabolic Profile (BMP)on 12-17-2016 Anion gap 6 mmol/L Invalid Interpretation Code 5-15 [facility] Work Phone: [phone] BUN/Creatinine Ratio 14.8 RATIO Invalid Interpretation Code 10-20 [facility] Work Phone: [phone] Calcium 9.2 mg/dL Invalid Interpretation Code 8.5-10.1 [facility] Work Phone: [phone] Chloride 102 mmol/L Invalid Interpretation Code 98-107 [facility] Work Phone: CO2 30.0 mmol/L Invalid Interpretation Code 21.0-32.0 [facility] Work Phone: [phone] Creatinine 0.74 mg/dL Invalid Interpretation Code 0.55-1.02 [facility] Work Phone: [phone] eGFR (non-black) 82 mL/min/{1.73_m2} Invalid Interpretation Code >60 [facility] Work Phone: eGFR (non-black) 99 mL/min/{1.73_m2} Invalid Interpretation Code >60 [facility] Work Phone: [phone] Glucose 90 mg/dL Invalid Interpretation Code 70-110 [email or web address] Work Phone: [phone] Potassium 3.9 mmol/L Invalid Interpretation Code 3.5-5.1 [email or web address] Work Phone: [phone] Sodium 138 mmol/L Invalid Interpretation Code 136-145 [email or web address] Work Phone: [phone] Urea nitrogen 11 mg/dL Invalid Interpretation Code 7-18 [email or web address] Work Phone: [phone] Office Visiton 12-17-2016 Documentation of current medications (procedure) Done Invalid Interpretation Code [email or web address] Work Phone: [phone] Fall risk assessment Yes Invalid Interpretation Code [email or web address] Work Phone: [phone] Clinical Lists Update: bung remover 06-07-2016 Left ventricular Ejection fraction 65-70 Invalid Interpretation Code [email or web address] Work Phone: [phone] Office Visiton 06-13-2015 Tobacco use CPHS Never smoker Invalid Interpretation Code [email or web address] Work Phone: [phone] External Other: Preferred Me thod of Contacton 03-08-2015 Patient's prefered method of contact phone Invalid Interpretation Code [email or web address] Work Phone: [phone] Office Visit: [facility] 03-08-20 Dietary management education, guidance, and counseling (procedure) yes Invalid Interpretation Code [email or web address] Work Phone: [phone] General cardiovascular disease 10Y risk [#] [place] 15 % Invalid Interpretation Code [email or web address] Work Phone: [phone] Clinical Lists Update: 11-12-2014 Magnesium 1.6 mg/dL Low [email or web address] Work Phone: Office Visiton 08-05-2014 cardiac risk group B Invalid Interpretation Code [email or web address] Work Phone: [phone] Clinical Lists Update: bung remover 05-23-2014 Cholesterol 171 mg/dL Invalid Interpretation Code [email or web address] Work Phone: [phone] HDL Cholesterol 46 mg/dL Invalid Interpretation Code [email or web address] Work Phone: [phone] LDL Cholesterol 109 mg/dL Invalid Interpretation Code [email or web address] Work Phone: [phone] Triglyceride 78 mg/dL Invalid Interpretation Code [email or web address] Work Phone: [phone] very low density lipoproteins 16 mg/dL Invalid Interpretation Code [email or web address] Work Phone: [phone] Clinical Lists Update: 05-22-2014 basophils as percent of blood leukocytes, manual count 0.5 % Invalid Interpretation Code [email or web address] Work Phone: [phone] eosinophils as percent of blood leukocytes, manual count 0.7 % Invalid Interpretation Code [email or web address] Work Phone: [phone] Erythrocytes (RBC) 4.37 10*6/uL Invalid Interpretation Code [email or web address] Work Phone: [phone] Hematocrit (HCT) 40.7 % Invalid Interpretation Code [email or web address] Work Phone: [phone] Hemoglobin (HGB) 13.9 g/dL Invalid Interpretation Code [email or web address] Work Phone: [phone] Lymphocytes/100 leukocytes 15.7 % Low [email or web address] Work Phone: [phone] MCH 31.8 pg Invalid Interpretation Code [email or web address] Work Phone: [phone] MCHC 34.2 g/dL Invalid Interpretation Code [email or web address] Work Phone: [phone] MCV 93.1 fL Invalid Interpretation Code [email or web address] Work Phone: [phone] Monocytes/100 leukocytes 6.6 % Invalid Interpretation Code [email or web address] Work Phone: [phone] neutrophils, band form as percent of blood leukocytes, manual count 76.3 % High [email or web address] Work Phone: [phone] Platelets 244 10*3/mm3 Invalid Interpretation Code [email or web address] Work Phone: [phone] RDW-CA 13.0 % Invalid Interpretation Code [email or web address] Work Phone: [phone] Thyroid stimulating hormone (TSH) 0.88 u[iU]/mL Invalid Interpretation Code [email or web address] Work Phone: [phone] WBC (Leukocytes) 6.1 10*3/uL Invalid Interpretation Code [email or web address] Work Phone: [phone] Clinical Lists Update: 06-23-2012 Albumin 4.0 g/dL Invalid Interpretation Code [facility] Work Phone: [phone] Albumin/Globulin Ratio 1.0 {ratio} Invalid Interpretation Code [facility] Work Phone: [phone] Alkaline phosphatase (ALP) 95 U/L Inval id Interpretation Code [facility] Work Phone: [phone] Aspartate aminotransferase (AST) 24 U/L Invalid Interpretation Code [facility] Work Phone: [phone] Bilirubin (total) 0.20 mg/dL Invalid Interpretation Code [facility] Work Phone: [phone] Globulin 3.9 g/dL Invalid Interpretation Code [facility] Work Phone: [phone] Protein 7.9 g/dL Invalid Interpretation Code [facility] Work Phone: [phone] Lab Reporton 06-13-2011 Alanine aminotransferase (ALT) 42 U/L Invalid Interpretation Code [facility] Work Phone: [phone] Bilirubin (direct) 0.12 mg/dL Invalid Interpretation Code [facility] Work Phone: [phone] Vital Signs Date Time Vital Sign Value Performing Clinician Facility 11-18-2024 15:25-0400 Body mass index (BMI) [Ratio] 30.31 kg/m2 Elzbieta Hernandez MD Work Phone: [facility] 11-18-2024 15:25-0400 Body temperature 97.59 [degF] Elzbieta Hernandez MD Work Phone: [facility] 11-18-2024 15:25-0400 Body weight 65.77 kg Elzbieta Hernandez MD Work Phone: [facility] 11-18-2024 15:25-0400 Heart rate 92 /min Elzbieta Hernandez MD Work Phone: [facility] 11-18-2024 15:25-0400 Respiratory rate 20 /min Elzbieta Hernandez MD Work Phone: [facility] 11-18-2024 15:25-0400 SaO2% (BldA) [Mass fraction] 97 % Elzbieta Hernandez MD Work Phone: [facility] 11-02-2024 08:27-0400 Body mass index (BMI) [Ratio] 30.3 kg/m2 Dr. Michael Snowden MD Work Phone: [facility] 11-02-2024 08:27-0400 Body weight 65.[address] Michael Snowden MD Work Phone: [facility] 11-02-2024 08:27-0400 Diastolic blood pressure 72 mm[Hg] Dr. Michael Snowden MD Work Phone: [facility] 11-02-2024 08:27-0400 Heart rate 95 /min Dr. Michael Snowden MD Work Phone: [facility] 11-02-2024 08:27-0400 Respiratory rate 18 /min Dr. Michael Snowden MD Work Phone: [facility] 11-02-2024 08:27-0400 SaO2% (BldA) [Mass fraction] 94 % Dr. Michael Snowden MD Work Phone: [facility] 11-02-2024 08:27-0400 Systolic blood pressure 104 mm[Hg] Dr. Michael Snowden MD Work Phone: [facility] 08-13-2024 07:56-0400 Diastolic blood pressure 103 mm[Hg] Seth Chowdary MD Work Phone: [facility] 08-13-2024 07:56-0400 Heart rate 98 /min Seth Chowdary MD Work Phone: [facility] 08-13-2024 07:56-0400 Systolic blood pressure 148 mm[Hg] Seth Chowdary MD Work Phone: [facility] 08-13-2024 07:52-0400 Body height 147.3 cm Seth Chowdary MD Work Phone: [facility] 08-13-2024 07:52-0400 Body mass index (BMI) [Ratio] 31.33 kg/m2 Seth Chowdary MD Work Phone: [facility] 08-13-2024 07:52-0400 Body weight 68 kg Seth Chowdary MD Work Phone: [facility] 08-13-2024 07:52-0400 Respiratory rate 18 /min Seth Chowdary MD Work Phone: [facility] 07-21-2024 12:56-0400 Body height 147.3 cm Jovanni Matthew MD Work Phone: [facility] 07-21-2024 12:56-0400 Body mass index (BMI) [Ratio] 31.35 kg/m2 Jovanni Matthew MD Work Phone: [facility] 07-21-2024 12:56-0400 Body weight 68.04 kg Jovanni Matthew MD Work Phone: [facility] 07-21-2024 12:56-0400 Diastolic blood pressure 75 mm[Hg] Jovanni Matthew MD Work Phone: [facility] 07-21-2024 12:56-0400 Heart rate 98 /min Jovanni Matthew MD Work Phone: [facility] 07-21-2024 12:56-0400 SaO2% (BldA) [Mass fraction] 96 % Jovanni Matthew MD Work Phone: [facility] 07-21-2024 12:56-0400 Systolic blood pressure 109 mm[Hg] Jovanni Matthew MD Work Phone: [facility] 05-21-2024 08:45-0500 Heart rate 71 /min Dr. Michael Snowden MD Work Phone: [facility] 05-21-2024 08:40-0500 Body temperature 98 [degF] Dr. Michael Snowden MD Work Phone: [facility] 05-21-2024 08:40-0500 Diastolic blood pressure 87 mm[Hg] Dr. Michael Snowden MD Work Phone: [facility] 05-21-2024 08:40-0500 Respiratory rate 17 /min Dr. Michael Snowden MD Work Phone: 1(443)634-875612 [place] [address] 05-21-2024 08:40-0500 SaO2% (BldA) [Mass fraction] 95 % Dr. Michael Snowden MD Work Phone: 9(966)636-655129 [place] [address] 05-21-2024 08:40-0500 Systolic blood pressure 144 mm[Hg] Dr. Michael Snowden MD Work Phone: 5(967)584-092529 [place] [address] 05-18-2024 11:00-0500 Body mass index (BMI) [Ratio] 32.5 kg/m2 Dr. Michael Snowden MD Work Phone: 7(094)482-644629 [place] [address] 05-18-2024 11:00-0500 Body weight 70.[address] Michael Snowden MD Work Phone: 8(410)413-227929 [place] [address] 05-15-2024 05:41-0500 Inhaled oxygen flow rate 97 L/min Dr. Michael Snowden MD Work Phone: 8(415)367-539329 [place] [address] 05-12-2024 13:31-0500 Body height 147.[address] Michael Snowden MD Work Phone: 7(944)669-014129 [place] [address] 04-16-2024 10:20-0500 Heart rate 70 /min Dr. Michael Snowden MD Work Phone: 2(806)651-726229 [place] [address] 04-16-2024 10:10-0500 Body temperature 98.3 [degF] Dr. Michael Snowden MD Work Phone: 8(360)402-918629 [place] [address] 04-16-2024 10:10-0500 Diastolic blood pressure 71 mm[Hg] Dr. Michael Snowden MD Work Phone: 0(749)218-849729 [place] [address] 04-16-2024 10:10-0500 Respiratory rate 18 /min Dr. Michael Snowden MD Work Phone: 0(069)879-805429 [place] [address] 04-16-2024 10:10-0500 SaO2% (BldA) [Mass fraction] 95 % Dr. Michael Snowden MD Work Phone: 1(711)050-903329 [place] [address] 04-16-2024 10:10-0500 Systolic blood pressure 109 mm[Hg] Dr. Michael Snowden MD Work Phone: 2(050)763-091012 [place] [address] 04-15-2024 15:36-0500 Body weight 70.[address] Michael Snowden MD Work Phone: 1(297)552-851112 [place] [address] 04-11-2024 14:41-0500 Body mass index (BMI) [Ratio] 32.5 kg/m2 Dr. Michael Snowden MD Work Phone: 6(548)024-917629 [place] [address] 03-31-2024 00:00-0500 Body temperature 98 [degF] Dr. Michael Snowden MD Work Phone: 8(809)890-690429 [place] [address] 03-31-2024 00:00-0500 Diastolic blood pressure 78 mm[Hg] Dr. Michael Snowden MD Work Phone: 3(105)480-900429 [place] [address] 03-31-2024 00:00-0500 Heart rate 84 /min Dr. Michael Snowden MD Work Phone: 9(750)480-393629 [place] [address] 03-31-2024 00:00-0500 Respiratory rate 16 /min Dr. Michael Snowden MD Work Phone: 0(301)023-457829 [place] [address] 03-31-2024 00:00-0500 SaO2% (BldA) [Mass fraction] 99 % Dr. Michael Snowden MD Work Phone: 6(702)363-527629 [place] [address] 03-31-2024 00:00-0500 Systolic blood pressure 145 mm[Hg] Dr. Michael Snowden MD Work Phone: 7(433)951-211512 [place] [address] 05-09-2023 13:06-0500 Body height 149.[address] Michael Snowden Work Phone: 1(933)444-657212 [place] [address] 05-09-2023 13:06-0500 Body mass index (BMI) [Ratio] 30.9 kg/m2 Dr. Michael Snowden Work Phone: 3(469)893-861012 [place] [address] 05-09-2023 13:06-0500 Body weight 69.[address] Michael Snowden Work Phone: 5(672)141-974712 [place] [address] 05-09-2023 13:06-0500 Diastolic blood pressure 86 mm[Hg] Dr. Michael Snowden Work Phone: [facility] 05-09-2023 13:06-0500 Heart rate 59 /min Dr. Michael Snowden Work Phone: [facility] 05-09-2023 13:06-0500 Respiratory rate 18 /min Dr. Michael Snowden Work Phone: 8(884)154-167512 [place] [address] 05-09-2023 13:06-0500 SaO2% (BldA) [Mass fraction] 95 % Dr. Michael Snowden Work Phone: 2(418)085-640612 [place] [address] 05-09-2023 13:06-0500 Systolic blood pressure 154 mm[Hg] Dr. Michael Snowden Work Phone: 9(414)763-527429 [place] [address] 01-06-2023 14:34-0400 Body height 149.[address] Michael Snowden Work Phone: 6(646)506-230329 [place] [address] 01-06-2023 14:34-0400 Body mass index (BMI) [Ratio] 29.9 kg/m2 Dr. Michael Snowden Work Phone: 9(811)524-384129 [place] [address] 01-06-2023 14:34-0400 Body weight 67.[address] Michael Snowden Work Phone: 4(876)686-711329 [place] [address] 01-06-2023 14:34-0400 Diastolic blood pressure 80 mm[Hg] Dr. Michael Snowden Work Phone: 3(179)304-582229 [place] [address] 01-06-2023 14:34-0400 Heart rate 54 /min Dr. Michael Snowden Work Phone: [facility] 01-06-2023 14:34-0400 Respiratory rate 18 /min Dr. Michael Snowden Work Phone: 9(030)139-025512 [place] [address] 01-06-2023 14:34-0400 SaO2% (BldA) [Mass fraction] 95 % Dr. Michael Snowden Work Phone: 4(352)545-845812 [place] [address] 01-06-2023 14:34-0400 Systolic blood pressure 171 mm[Hg] Dr. Michael Snowden Work Phone: [facility] 01-04-2022 08:47-0400 Body height 149.[address] Michael Snowden Work Phone: [facility] Work Phone: 01-04-2022 08:47-0400 Body mass index (BMI) [Ratio] 31.3 kg/m2 Dr. Michael Snowden Work Phone: [facility] Work Phone: 01-04-2022 08:47-0400 Body weight 70.[address] Michael Snowden Work Phone: [facility] Work Phone: 01-04-2022 08:47-0400 Heart rate 52 /min Dr. Michael Snowden Work Phone: [facility] Work Phone: 01-04-2022 08:47-0400 Respiratory rate 16 /min Dr. Michael Snowden Work Phone: [facility] Work Phone: 01-04-2022 08:47-0400 SaO2% (BldA) [Mass fraction] 98 % Dr. Michael Snowden Work Phone: [facility] Work Phone: 12-17-2016 13:13-0400 BMI (Body [...] 12-17-2016 13:13-0400 Respiratory Rate 20 /min Riddhi Weaver G roup Work Phone: 12-17-2016 13:13-0400 Weight 76.66 kg Riddhi Weaver Gr oup Work Phone: 06-13-2015 15:00-0400 BSA [...] Phone: Comment on above: Method: Oral 03-19-2006 [id number] Body weight 93.9 kg Day Pacheco RN [...] Date Encounter Type Care Provider Facility Start: 12-20-2024 ambulatory Mari Sunshinei ty:[facility] Start: 11-30-2024 ambulatory Nikia Cabral cility:[facility] Start: 11-23-2024 End: 11-23-2024 Telephone encounter Elzbieta Hernandez MD Work Phone: Endocrinology Comment on above: Appointment Start: 11-22-2024 ambulatory Nikia Cabral cility:[facility] Start: 11-19-2024 End: 11-19-2024 Telephone encounter Elzbieta Hernandez MD Work Phone: Endocrinology Comment on above: Prior Authorization ([employer]) Start: 11-18-2024 End: 11-18-2024 ambulatory ELZBIETA HERNANDEZ Facility:[facility] Start: 11-18-2024 End: 11-18-2024 Patient encounter procedure Elzbieta Hernandez MD Work Phone: Endocrinology Comment on above: History of vertebral compression fracture (Primary Dx); Age-related osteoporosis with current pathological fracture, initial encounter Start: 11-02-2024 End: 11-02-[address] Michael Snowden MD Work Phone: -[facility] Start: 11-02-2024 End: 11-02-2024 Mari Medina NP-C -[facility] Work Phone: Start: 10-14-2024 ambulatory Nikia Cabral cility:[facility] Start: 10-14-2024 Nikia WOLF L - [place] Start: 10-13-2024 End: 10-13-[address] Michael Snowden MD Work Phone: [facility] Start: 10-13-2024 End: 10-13-2024 Audra MANUEL [facility] Work Phone: Start: 09-28-2024 End: 09-28-[address] Michael Snowden MD Work Phone: [facility] Start: 09-28-2024 End: 09-28-2024 Audra BaconWHL - [place] Start: 09-21-2024 ambulatory Efewfedebe Roberte OLS Fa cility:[facility] Start: 09-21-2024 Nikia WOLF L - [place] Start: 09-14-2024 ambulatory Efewterra Jonese OLS Fa cility:[facility] Start: 09-14-2024 Nikia WOLF L - [place] Start: 09-07-2024 End: 09-07-2024 Telephone encounter Ajay Grant MD Work Phone: Endocrinology Start: 09-07-2024 ambulatory Eflaura Jonese OLS Fa cility:[facility] Start: 09-07-2024 Nikia WOLF L - [place] Start: 08-31-2024 ambulatory Audra Drake OLS Fac ility:[facility] Start: 08-31-2024 Audra BaconW HL - [place] Start: 08-25-2024 End: 08-25-2024 ambulatory Ajay Grant MD Work Phone: Endocrinology Comment on above: Medication denial Start: 08-25-2024 End: 08-25-2024 E-mail encounter from caregiver Ajay Grant MD Work Phone: Endocrinology Start: 08-24-2024 ambulatory Efewongbe Oleghe OLS Fa cility:[facility] Start: 08-24-2024 Nikia Cabezas Start: 08-22-2024 End: 08-22-2024 Telephone encounter Ajay Grant MD Work Phone: [facility] Comment on above: Medication Preauthor ization (Evenity 210mg- Denied) Start: 08-17-2024 End: 08-17-[address] Michael Snowden MD Work Phone: [facility] Work Phone: Start: 08-17-2024 End: 08-17-2024 Nikia Cabezas Start: 08-16-2024 End: 08-17-2024 ambulatory Ajay Grant MD Work Phone: Endocrinology Comment on above: Medication update Start: 08-16-2024 End: 08-16-2024 E-mail encounter from caregiver Ajay Grant MD Work Phone: Endocrinology Start: 08-13-2024 End: 08-13-2024 Patient encounter procedure Seth Chowdary MD Work Phone: [facility] Comment on above: Acquired spondylolis thesis (Primary Dx); Cervical spondylosis without myelopathy; Neural foraminal stenosis of lumbar spine; Closed compression fracture of body of L1 vertebra (HCC) Start: 08-13-2024 End: 08-13-2024 ambulatory SETH CHOWDARY Facility:[facility] Start: 08-10-2024 End: 08-10-[address] Michael Snowden MD Work Phone: [facility] Work Phone: Start: 08-10-2024 End: 08-10-2024 Nikia Cabezas Start: 08-10-2024 End: 08-10-2024 ambulatory Nikia JAVIER Facility:[facility] Start: 08-03-2024 End: 08-03-[address] Michael Snowden MD Work Phone: [facility] Work Phone: Start: 08-03-2024 End: 08-03-2024 Audra Cabezas Start: 08-03-2024 End: 08-03-2024 ambulatory Audra JAVIER Facility:[facility] Start: 07-27-2024 End: 07-27-2024 Audrayadi Khourydiego Cabezas Start: 07-27-2024 End: 07-27-2024 ambulatory Audra JAVIER Facility:[facility] Start: 07-21-2024 End: 07-21-2024 ambulatory MILLIE PETTY Facility:[facility] Start: 07-21-2024 End: 07-21-2024 ambulatory AJAY GRANT Facility:[facility] Start: 07-21-2024 End: 07-21-2024 Patient encounter procedure Jovanni Matthew MD Work Phone: Rehab Medicine Comment on above: Osteopenia, unspecif ied location (Primary Dx); History of vertebral compression fracture; Spondylolisthesis, grade 3 Start: 07-21-2024 End: 07-21-2024 ambulatory JOVANNI MATTHEW Facility:[facility] Start: 07-20-2024 End: 07-20-[address] Michael Snowden MD Work Phone: [facility] Work Phone: Start: 07-20-2024 End: 07-20-2024 Nikia Cabezas Start: 07-20-2024 End: 07-20-2024 ambulatory Nikia JAVIER Facility:[facility] Start: 07-13-2024 End: 07-13-[address] Michael Snowden MD Work Phone: [facility] Work Phone: Start: 07-13-2024 End: 07-13-2024 Nikia Cabezas Start: 07-13-2024 End: 07-13-2024 ambulatory Nikia Henderson OLS Facility:[facility] Start: 07-06-2024 Registered Referred Nikia Cabezas Start: 07-06-2024 End: 07-06-2024 Nikia Cabezas Start: 07-06-2024 End: 07-06-2024 ambulatory Nikia Henderson OLS Facility:[facility] Start: 06-29-2024 Registered Referred Audra Drake ASSOCIATE BRAND MANAGER-C -[facility] - [place] Start: 06-29-2024 End: 06-29-2024 Audra Noelle ASSOCIATE BRAND MANAGER-C -[facility] - [place] Start: 06-29-2024 End: 06-29-2024 ambulatory Audra Drake OLS Facility:[facility] Start: 06-23-2024 End: 06-23-2024 ambulatory Audra Drake ASSOCIATE BRAND MANAGER Facility:[facility] Start: 06-23-2024 End: 06-23-2024 Audra Drake ASSOCIATE BRAND MANAGER-C -[facility] Work Phone: Start: 06-22-2024 End: 06-22-[address] Michael Snowden MD Work Phone: [facility] Work Phone: Start: 06-22-2024 Registered Referred Audra Drake ASSOCIATE BRAND MANAGER-C -[facility] - [place] Start: 06-22-2024 End: 06-22-2024 Audra Drake ASSOCIATE BRAND MANAGER-C -[facility] - [place] Start: 06-22-2024 End: 06-22-2024 ambulatory Audra Drake OLS Facility:[facility] Start: 06-15-2024 End: 06-15-[address] Michael Snowden MD Work Phone: [facility] Work Phone: Start: 06-15-2024 End: 06-15-2024 Departed Referred Nikia Cabezas Start: 06-15-2024 Registered Referred Nikia Cabezas Start: 06-15-2024 End: 06-15-2024 Nikia Cabezas Start: 06-15-2024 End: 06-15-2024 ambulatory Catalinafedeheladio Jonesvoiletta JAVIER Facility:[facility] Start: 06-08-2024 End: 06-08-2024 Departed Referred Nikia Cabezas Start: 06-08-2024 Registered Referred Nikia Cabezas Start: 06-08-2024 End: 06-08-2024 Nikia Cabezas Start: 06-08-2024 End: 06-08-2024 ambulatory Nikia Cristobaljanicevioletta JAVIER Facility:[facility] Start: 06-01-2024 End: 06-01-[address] Michael Snowden MD Work Phone: [facility] Work Phone: Start: 06-01-2024 End: 06-01-2024 Departed Referred Nikia Cabezas Start: 06-01-2024 End: 06-01-2024 Nikia Cabezas Start: 06-01-2024 End: 06-01-2024 ambulatory Nikia Beatriz JAVIER Facility:[facility] Start: 05-25-2024 End: 05-25-2024 ambulatory Nikia Cristobaljanicevioletta Facility:[facility] Start: 05-25-2024 End: 05-25-[address] Nikia Henderson MD [facility] Work Phone: Start: 05-25-2024 End: 05-25-2024 Dr. Nikia BaconAyden Halfway Work Phone: Start: 05-21-2024 End: 05-21-2024 ambulatory Audra Darke NP Facility:[facility] Start: 05-21-2024 End: 05-21-2024 Patient encounter procedure Audra Drake ASSOCIATE BRAND MANAGER- -[facility] Work Phone: Start: 05-21-2024 End: 05-21-2024 Audra Drake ASSOCIATE BRAND MANAGER-C -[facility] Work Phone: Start: 04-16-2024 End: 05-21-2024 [...] Work Phone: Start: 04-14-[address] [facility] ility:[facility] Start: 04-14-2024 End: 04-16-2024 Evaluation and management of inpatient Dr. Gabo Hernandez MD -[facility] Work Phone: Start: 04-14-2024 End: 04-16-2024 Dr. Gabo Hernandez MD -[facility] 3 Work Phone: Start: 04-14-2024 Non-patient / Non-visit Dr. Minerva Hernandez MD -[facility] Work Phone: Start: 04-14-2024 Dr. Gabo Hernandez MD [facility] Work Phone: Start: 04-14-2024 End: 04-14-2024 ambulatory Indu Pacheco Facility:[facility] Start: 04-14-2024 End: 04-14-2024 Non-patient / Non-visit Dr. Indu Pacheco MD -[facility] Work Phone: Start: 04-14-2024 End: 04-14-2024 Dr. Indu Pacheco MD -[facility] Work Phone: Start: 04-13-2024 Non-patient / Non-visit Dr. Minerva Hernandez MD -[facility] Work Phone: Start: 04-13-2024 Dr. Gabo Hernandez MD -[facility] Work Phone: Start: 04-12-2024 Non-patient / Non-visit Dr. Lesli ramirez MD [facility] Work Phone: Start: 04-12-2024 Dr. Lesli Watkins MD -[facility] Work Phone: Start: 04-11-2024 ambulatory Lesli Bennet Facility:[facility] Start: 04-11-2024 Non-patient / Non-visit Dr. Lesli ramirez MD -[facility] Work Phone: Start: 04-11-2024 Dr. Lesli Watkins MD -[facility] Work Phone: Start: 03-30-2024 End: 03-31-2024 Dr. Floridalma Bingham DO -Emergency Departme nt Work Phone: Start: 03-30-2024 End: 03-31-2024 Emergency department patient visit Dr. Floridalma Bingham DO -Emergency Department Work Phone: Start: 03-25-2024 End: 03-25-2024 ambulatory [facility] Facility:[facility] Start: 03-25-2024 End: 03-25-[address] Michael Snowden MD -Physical Therapy Work Phone: Start: 03-25-2024 End: 03-25-2024 Dr. Michael Snowden MD -Physical Therapy Work Phone: Start: 02-25-2024 End: 02-25-2024 Emergency department patient visit [facility] Start: 02-23-2024 End: 02-23-2024 ambulatory Michael Snowden Facility:[facility] Start: 01-08-2024 End: 01-08-2024 ambulatory Michael Snowden Facility:[facility] Start: 06-20-[address] Michael guillen Work Phone: [facility] Therapy Work Phone: Start: 06-19-2023 Non-patient / Non-visit Dr. Augusto Snowden Work Phone: [facility] Start: 06-19-2023 End: 06-19-[address] Michael Snowden Work Phone: [facility] Work Phone: Start: 06-19-2023 End: 06-19-[address] Michael Snowden Work Phone: [facility]Cardiovascular Services Work Phone: Start: 05-30-[address] Michael guillen Work Phone: [facility] Work Phone: Start: 05-28-2023 End: 05-28-[address] Michael Snowden Work Phone: [facility] Work Phone: Start: 05-28-2023 End: 05-28-[address] Michael Snowden Work Phone: [facility]-Laboratory, Phy Office 3rd Flr Start: 05-09-2023 End: 05-09-[address] Michael Snowden Work Phone: [facility] Work Phone: Start: 05-09-2023 End: 05-09-[address] Michael Snowden Work Phone: [facility] Work Phone: Start: 04-28-2023 End: 04-28-[address] Michael Snowden Work Phone: [facility] Work Phone: Start: 04-28-2023 End: 04-28-[address] Michael Snowden Work Phone: [facility] Work Phone: Start: 02-24-2023 End: 02-24-[address] Michael Snowden Work Phone: [facility] Work Phone: Start: 01-06-2023 End: 01-06-[address] Michael Snowden Work Phone: [facility] Work Phone: Start: 11-28-[address] Michael guillen Work Phone: [facility] Work Phone: Start: 11-27-2022 End: 11-27-[address] Michael Snowden Work Phone: [facility] Work Phone: Start: 11-27-2022 End: 11-27-[address] Michael Snowden Work Phone: [facility]Laboratory, Phy Office 3rd [facility] Start: 11-05-2022 End: 11-05-[address] Michael Snowden Work Phone: [facility] Work Phone: Start: 11-05-2022 End: 11-05-[address] Michael Snowden Work Phone: [facility] Work Phone: Start: 09-25-2022 End: 09-25-[address] Michael Snowden Work Phone: [facility] Work Phone: Start: 08-08-[address] Michael guillen Work Phone: [facility] Start: 08-05-2022 End: 08-05-[address] Michael Snowden Work Phone: [facility] Work Phone: Start: 08-05-2022 End: 08-05-[address] Michael Snowden Work Phone: [facility]Laboratory, Specimen Start: 07-16-[address] [facility] Start: 07-16-2022 End: 07-16-[address] Michael Snowden Work Phone: [facility] Work Phone: Start: 07-16-2022 End: 07-16-[address] Michael Snowden Work Phone: [facility] Start: 06-10-[address] Michael guillen [facility] Start: 06-07-2022 End: 06-07-[address] Michael Snowden Work Phone: [facility] Work Phone: Start: 06-07-2022 End: 06-07-[address] Michael Snowden Work Phone: [facility] Start: 03-26-2022 End: 03-26-[address] Michael Snowden Work Phone: [facility] Work Phone: Start: 03-26-2022 End: 03-26-[address] Michael Snowden Work Phone: [facility], Phy Office 3rd Flr Start: 02-15-[address] [facility] guillen [facility] Start: 01-07-[address] Michael guillen [facility] Start: 01-04-2022 End: 01-04-[address] Michael Snowden Work Phone: [facility] Start: 12-24-2021 End: 12-24-[address] Michael Snowden Work Phone: [facility] Work Phone: Start: 12-24-2021 End: 12-24-[address] [facility] Snowden [facility] Start: 09-25-2021 End: 09-25-2021 Patient encounter procedure [facility] 3rd Flr Start: 09-24-2021 [facility] Start: 03-19-2006 End: 03-19-2006 Patient encounter procedure Noreen Fast DO Work Phone: [facility] Start: 02-26-2006 End: 02-27-2006 Patient encounter procedure Noreen Fast DO Work Phone: [facility] Start: 02-26-2006 End: 02-26-2006 Historical Summary Noreen Fast DO Work Phone: [facility] Procedures Date Procedure Procedure Detail Performing Clinician Start: 11-02-2024 Blood count smear mc rscp w/mnl difrntl [...] Work Phone: Start: 04-12-2024 [facility] wbc count Dr. Michael Snowden [...] DTaP,Tdap,Td Vaccine (3 - Td or Tdap) [facility] Start: 07-22-2027 Diabetes Screening Diabetes Screenin g [facility] Start: 07-21-2025 BP Controlled (<130/80) BP Con trolled (<130/80) [facility] Start: 02-21-2025 End: 02-21-2025 Patient encounter procedure 02/21/2025 1:40 PM EST Office Visit Endocrinology [address] [place], [place] [id number] Elzbieta Hernandez MD [address] [place], [place] [id number] 3 mth follow up Endocrinology Comment on above: 3 mth follow up Start: 11-29-2024 Influenza vaccination [facility] Start: 11-18-2024 End: 02-17-2025 ALK PHOS BONE SPEC ALK PHOS BONE SPEC Lab Routine History of vertebral compression fracture Age-related osteoporosis with current pathological fracture, initial encounter Expected: 11/18/2024, Expires: 02/17/2025 [facility] Comment on above: Expected: 11/18/2024 , Expires: 02/17/2025 Start: 11-18-2024 End: 02-17-2025 Collagen crosslinked C-telopeptide [Mass/volume] in Serum or Plasma C TELOPEPTIDE, BETA Lab Routine History of vertebral compression fracture Age-related osteoporosis with current pathological fracture, initial encounter Expected: 11/18/2024, Expires: 02/17/2025 [facility] Work Phone: Comment on above: Expected: 11/18/2024 , Expires: 02/17/2025 Start: 11-02-2024 Evaluation of diagno stic study results [facility] Start: 11-02-2024 Hepatic function panel [facility] Start: 11-02-2024 Vitamin B12 measurement [facility] Start: 11-02-2024 Vitamin D, 25-hydrox y measurement [facility] Start: 10-20-2024 End: 10-20-2024 Patient encounter procedure 10/20/2024 12:40 PM EDT Office Visit Endocrinology [address] [id number] Kimmie Lindsey MD [address] [place] [address] 3 month follow up Endocrinology Comment on above: 3 month follow up Start: 05-21-2024 Patient discharge [facility] Start: 05-20-2024 Development of care plan [facility] Start: 05-17-2024 Consultation for pain [facility] Start: 05-13-2024 Developing a treatme nt plan [facility] Start: 05-13-2024 Development of care plan [facility] Start: 05-07-2024 [facility] Start: 04-17-2024 Developing a treatme nt plan [facility] Start: 04-17-2024 Development of care plan [facility] Start: 04-16-2024 Admission procedure [facility] Start: 04-16-2024 Introduction of urin mee catheter [facility] Start: 04-16-2024 Measuring intake and output [facility] Start: 04-16-2024 Patient referral to dietitian [facility] Start: 04-16-2024 Referral to occupati onal therapist [facility] Start: 04-16-2024 Referral to service [facility] Start: 04-16-2024 Vital signs measurements [facility] Start: 04-16-2024 [facility] Start: 04-16-2024 Following clinical pathway protocol [facility] Start: 04-16-2024 Patient discharge [facility] Start: 04-16-2024 [facility] Start: 04-14-2024 Admission procedure [facility] Start: 04-11-2024 Application of intermittent pneumatic compression device [facility] Start: 04-11-2024 Following clinical pathway protocol [facility] Start: 04-11-2024 Assessment of risk o f venous thromboembolism [facility] Start: 04-11-2024 Consultation for pain [facility] Start: 04-11-2024 Inhalation therapy procedure [facility] Start: 04-11-2024 Insertion of cathete r into peripheral vein [facility] Start: 04-11-2024 Providing care accor ding to standard [facility] Start: 04-11-2024 Provision of activit y privileges [facility] Start: 04-11-2024 Referral to occupati onal therapist [facility] Start: 04-11-2024 Referral to service [facility] Start: 04-11-2024 [facility] Start: 04-11-2024 Admission procedure [facility] Start: 03-31-2024 Advance Directive Discussion Advance Directive Discussion [facility] Start: 03-31-2024 Medicare Advantage Annual Wellness Visit Medicare Advantage Annual Wellness Visit [facility] Start: 03-31-2024 [facility] Start: 11-30-2023 Covid-19 Vaccine ( season) Covid-19 Vaccine () [facility] Start: 11-30-2023 Influenza vaccination Influenza Vacc ine (#1) [facility] Start: 08-05-2022 Protein measurement [facility] Start: 2020 RSV Vaccine (1 - 1-d ose 75+ series) RSV Vaccine (1 - 1-dose 75+ series) [facility] Start: 06-16-2017 End: 06-16-2017 Appointment Appointment [email or web address] Work Phone: Start: 12-17-2016 End: 12-17-2016 *BMP *BMP [email or web address] Work Phone: Start: 12-17-2016 End: 12-17-2016 Follow Up Appt 6 months Follow Up Appt 6 months [email or web address] Work Phone: Start: 12-17-2016 End: 12-17-2016 JHR ROBERTR [email or web address] Work Phone: Start: 12-17-2016 End: 12-17-2016 Remote 30 day ecg rev/report 30 Day Holter Monitor [facility] Work Phone: Start: 06-11-2016 End: 06-11-2016 CNC MANAGER CNC MANAGER [facility] Work Phone: Start: 06-11-2016 End: 06-11-2016 Follow Up Appt 6 months Follow Up Appt 6 months [facility] Work Phone: Start: 06-11-2016 End: 06-11-2016 Follow Up BP Check Follow Up BP Check [facility] Work Phone: Start: 04-04-2016 Screening for osteoporosis Bone Density Screening [facility] Start: 06-13-2015 End: 06-06-2016 Follow Up Appt 1 year Follow Up Appt 1 year [facility] Work Phone: Start: 06-13-2015 End: 06-06-2016 MMM MMM [facility] Work Phone: Start: 03-08-2015 End: 03-08-2015 CNC MANAGER CNC MANAGER [facility] Work Phone: Start: 03-08-2015 End: 03-08-2015 Follow Up Appt 3 months Follow Up Appt 3 months [facility] Work Phone: Start: 08-05-2014 End: 08-05-2014 Follow Up Appt 6 months Follow Up Appt 6 months [facility] Work Phone: Start: 08-05-2014 End: 08-05-2014 MMM MMM [facility] Work Phone: Start: 02-10-2014 End: 02-10-2014 CNC MANAGER CNC MANAGER [facility] Work Phone: Start: 02-10-2014 End: 02-10-2014 Follow Up Appt 6 months Follow Up Appt 6 months [facility] Work Phone: Start: 08-13-2013 End: 08-13-2013 Follow Up Appt 6 months Follow Up Appt 6 months [facility] Work Phone: Start: 08-13-2013 End: 08-13-2013 MMM MMM [facility] Work Phone: Start: 02-08-2013 End: 02-08-2013 CNC MANAGER CNC MANAGER [facility] Work Phone: Start: 02-08-2013 End: 02-08-2013 Follow Up Appt 6 months Follow Up Appt 6 months [facility] Work Phone: Start: 08-13-2012 End: 02-01-2013 Follow Up Appt 6 months Follow Up Appt 6 months [facility] Work Phone: Start: 08-13-2012 End: 02-01-2013 MMM MMM [facility] Work Phone: Start: 02-04-2012 End: 02-04-2012 Follow Up Appt 6 months Follow Up Appt 6 months [facility] Work Phone: Start: 04-25-2011 Shingrix Vaccine (2 of 3) Shingrix Vaccine (2 of 3) [facility] Start: 03-19-2006 Provider Instruction s for Treatment FOLLOW UP IN 4 MONTHS [facility] Work Phone: Start: 10-27-1963 Annual PCP Team Quality Control Projectionist apurva Disease Visit Annual PCP Team Chronic Disease Visit [facility] Start: 10-27-1963 Anxiety Screening Anxiety Screening [facility] Start: 10-27-1963 BP Controlled (<130/80) BP Con trolled (<130/80) [facility] Start: 10-27-1963 Depression Screening Depression Scre ing [facility] Start: 10-27-1963 zzBP Controlled (<130/80) (Retired) zzBP Controlled (<130/80) (Retired) [facility] Cholesterol [Mass/volume] in Serum or Plasma [facility] Cholesterol in HDL [Mass/volume] in Serum or Plasma [facility] CT Abdomen and Pelvi s W contrast IV [facility] Lactoferrin [Presenc e] in Stool by Immunoassay [facility] Low density lipoprot ein cholesterol measurement [facility] NM Heart Views W str ess and W radionuclide IV [facility] Patient Education [facility] Work Phone: Patient referral [facility] Work Phone: Protein measurement [facility] Total cholesterol:HD L ratio measurement [facility] Triglycerides [facility] Immunizations Immunization Date Immunization Notes Care Provider Marianna mandujano 02-25-2024 tetanus toxoid, redu lalo diphtheria toxoid, and acellular pertussis vaccine, adsorbed Dr. Michael Snowden MD Work Phone: [facility] 05-13-2017 influenza virus vacc ine, unspecified formulation Jovanni Matthew MD Work Phone: [facility] 03-17-2015 pneumococcal conjuga te vaccine, 13 [facility] 12-24-2014 influenza, high dose seasonal, preservative-free Jovanni Matthew MD Work Phone: [facility] 01-11-2013 influenza virus vacc ine, unspecified formulation Jovanni Matthew MD Work Phone: [facility] 02-28-2011 zoster vaccine, live Jovanni crump MD Work Phone: [facility] Work Phone: 02-19-2011 influenza virus vacc ine, unspecified formulation Jovanni Matthew MD Work Phone: [facility] 02-19-2011 pneumococcal polysaccharide vaccine, 23 [facility] 09-21-2007 tetanus toxoid, redu lalo diphtheria toxoid, and acellular pertussis vaccine, adsorbed Jovanni Matthew MD Work Phone: [facility] Payers Date Payer Category Payer Self-pay [id number] 2018 Medicare (Managed Care) [place]TE PASTRANA [id number] 2013 Medicare [id number] Unknown [facility] Unknown [id number] 2.16.840.1.390600.3.579. 2.462 Unknown [id number] 2.840.1.248354.3.579. 2.462 Unknown [id number] 2.16840.1.164352.3.579. 2.462 Unknown [id number] 2.840.1.429994.3.579. 2.462 Unknown [id number] 2.840.1.639292.3.579. 2.462 Unknown [id number] 2.840.1.828274.3.579. 2.462 Unknown [id number] 2.840.1.827296.3.579. 2.462 Unknown [id number] 2.840.1.634518.3.579. 2.462 Unknown [id number] 2.840.1.988326.3.579. 2.462 Unknown [id number] 2.840.1.953764.3.579. 2.462 Unknown [id number] 2.840.1.256127.3.579. 2.462 Unknown [id number] 2.840.1.760675.3.579. 2.462 Unknown [id number] 2.16.840.1.485462.3.579. 2.462 Unknown [id number] 2.16.840.1.402758.3.579. 2.462 Unknown [id number] 2.16840.1.932614.3.579. 2.462 Unknown [id number] 2.840.1.643840.3.579. 2.462 Unknown [id number] 2.16.840.1.209874.3.579. 2.462 Unknown [id number] 2.16.840.1.881578.3.579. 2.462 Unknown [id number] 2.16.840.1.286768.3.579. 2.462 Unknown [id number] 2.16.840.1.542751.3.579. 2.462 Unknown [id number] 2.16.840.1.943895.3.579. 2.462 Unknown [id number] 2.16.840.1.718154.3.579. 2.462 Unknown [id number] 2.16.840.1.559447.3.579. 2.462 Unknown [id number] 2.16.840.1.734231.3.579. 2.462 Unknown [id number] 2.16.840.1.739643.3.579. 2.462 Unknown [id number] 2.16.840.1.558060.3.579. 2.462 Unknown [id number] 2.16.840.1.388541.3.579. 2.462 Unknown [id number] 2.16.840.1.958319.3.579. 2.462 Unknown [id number] 2.16.840.1.244991.3.579. 2.462 Unknown [id number] 2.16.840.1.559022.3.579. 2.462 Unknown [id number] 2.16.840.1.648609.3.579. 2.462 Unknown [id number] 2.16.840.1.587934.3.579. 2.462 Unknown [id number] 2.16.840.1.227068.3.579. 2.462 Unknown [id number] 2.16.840.1.961190.3.579. 2.462 Unknown [id number] 2.16.840.1.645566.3.579. 2.462 Unknown [id number] 2.16.840.1.258258.3.579. 2.462 Unknown [id number] 2.16.840.1.686761.3.579. 2.462 Unknown [id number] 2.16.840.1.528285.3.579. 2.462 Unknown [id number] 2.16.840.1.852935.3.579. 2.462 Unknown [id number] 2.16.840.1.574750.3.579. 2.462 Unknown [id number] 2.16.840.1.566821.3.579. 2.462 Unknown [id number] 2.16.840.1.877258.3.579. 2.462 Unknown [id number] 2.16840.1.504666.3.579. 2.462 Unknown [id number] 2.840.1.170909.3.579. 2.462 Social History Date Type Detail Facility Start: 04-10-2021 End: 05-09-2023 Tobacco smoking status NHIS Unknown if ever smoked [facility] Start: 09-21-2020 None [facility] Start: 09-21-2020 Homeless [facility] Start: 09-21-2020 Non-smoker [facility] Start: 1945 Sex Assigned At Female W [facility] Start: 07-21-2024 End: 11-18-2024 Alcohol Use Alcohol Use [facility]; [facility] Work Phone: Comment on above: Occasional alcohol u se tea once iin awhile Start: 04-16-2024 End: 07-21-2024 Tobacco smoking status NHIS Never smoked tobacco (finding) [facility] Start: 07-01-2024 End: 07-15-2024 Sex Female (finding) [facility] Start: 07-21-2024 Tobacco use and exposure Smokeless tobacco non-user [facility] Start: 07-21-2024 End: 11-18-2024 Alcoholic beverage intake Current drinker of alcohol (finding) [facility] Start: 07-21-2024 End: 11-18-2024 Tobacco use panel [facility] Start: 03-01-2012 National Score (1-100), lower number is lower risk 75 [facility] Start: 07-21-2024 Tobacco Comment Mother smoked in childhood home. ETS exposure in a restaurant. [facility] Start: 02-19-2012 Alcohol Comment holidays [facility] Start: 1945 Sex assigned at Not on file C [facility] NEGATED: Highlighted row Not [facility] Goals Date Patient Goal Desired Activity /State Functional Status Date Assessment Result Facility 05-21-2024 Functional status Ambulates [facility] Work Phone: 04-16-2024 Functional status Ambulates [facility] Work Phone: 11-03-2014 Are you deaf, or do you have serious difficulty hearing No 11/03/2014 11:42 AM Dalila Nielsen RN No [facility] 11-03-2014 Are you blind, or do you have serious difficulty seeing, even when wearing glasses No 11/03/2014 11:42 AM Dalila Nielsen RN No [facility] 11-03-2014 Do you have serious difficulty walking or climbing stairs Yes 11/03/2014 11:42 AM Dalila Nielsen RN Yes [facility] 11-03-2014 Do you have difficul ty dressing or bathing No 11/03/2014 11:42 AM Dalila Nielsen RN No [facility] 11-03-2014 Because of a physica l, mental, or emotional condition, do you have difficulty doing errands alone such as visiting a physician's office or shopping Yes 11/03/2014 11:42 AM Dalila Nielsen RN Yes [facility] Mental Status Date Assessment Result Facility 05-21-2024 Cognitive function Voice/Name [facility] Work Phone: 05-17-2024 Cognitive function Appropriate;C ooperativ e [facility] Work Phone: 04-16-2024 Cognitive function Voice/Name [facility] Work Phone: 11-03-2014 Because of a physica l, mental, or emotional condition, do you have serious difficulty concentrating, remembering, or making decisions Yes 11/03/2014 11:42 AM EDT Dalila Arevalo RN Yes [facility] Clinical Notes 06-14-2022 to 11-23-2024 Telephone Encounter [...] brought to the appt by Anny from [facility]; therefore, Anny wants to call back once she touches base with Pt to determine best date/time for Pt to come in for the injection. Dr. Hernandez already placed CAM order in Pt's chart. Karla Pineda RN November 23, 2024 2:46 PM [facility] 11-23-2024 Miscellaneous Notes Call placed to Pt's sister, Anny Espinosa. Notified her that the prior authorization for Prolia was approved by Pt's insurance, and she can schedule the nurse visit with Trinidad valenzuela RN at their convenience. Pt will be brought to the appt by Anny from [facility]; therefore, Anny wants to call back once she touches base with Pt to determine best date/time for Pt to come in for the injection. Dr. Hernandez already placed CAM order in Pt's chart. Karla Pineda RN November 23, 2024 2:46 PM documented in this encounter [facility] 11-19-2024 Telephone encounter Note Fax received Prolia approved pa# [phone] from 11/19/24-03/30/25. Placed in scanned docs. .me [facility] 11-19-2024 Miscellaneous Notes Fax received Prolia approved pa# [id number] from 11/19/24-03/30/25. Placed in scanned docs. .me Prior authorization for Prolia submitted to CoverMeds. Cruz: [id number] Pineda RN November 19, 2024 10:25 AM documented in this encounter [facility] 11-19-2024 Telephone encounter Note Prior authorization for Prolia submitted to CoverMyMeds. Cruz: [id number] Pineda RN November 19, 2024 10:25 AM [facility] 11-18-2024 Elzbieta Church MD - 11/18/2024 3:55 PM EDT Regarding [...] 300 Yogurt (6 oz [168 g]) 250 Dallas juice (with calcium, 8 oz [240 mL]) [...] 50 to 135 Almonds (24 whole) 70 Dallas (1 medium) 60 If you think you [...] the medications reviewed documented in this encounter [facility] 11-18-2024 Note HNO ID: [id number] Author: ELZBIETA HERNANDEZ MD Service: ? Author Type: Physician Type: Progress Notes Filed: 11/18/2024 18:10 Note Text: Endocrinology and Metabolism [facility] Follow up note NAME: Lizette Davies is [...] using Vitamin D 5000 international unit(s) daily She was prescribed Evenity, which was denied [...] MRI scanned into Epic January 11, 2014 ([facility]) DDD (degenerative disc disease), lumbosacral Essential [...] 12/31/13 EGD ESOPHAGOGASTRODUODENOSCOPY TRANSORAL DIAGNOSTIC 02/16/[address] [facility] [place] inpt ESOPHAGOGASTRODUODENOSCOPY TRANSORAL DIAGNOSTIC 05/11/15 EGD EXTRACTION, ERUPTED TOOTH OR EXPOSED ROOT (ELEVATION AND/OR FORCEPS REMOVAL) 1969' [place] teeth FOOT RIGHT OP SURGERY 01/2009 PAST [...] needed for nausea/ (more content not included)... [facility] 11-18-2024 History of Presen t illness Narrative Images from the original note were not included. Endocrinology and Metabolism [facility] Follow up note NAME: Lizette Davies is [...] using Vitamin D 5000 international unit(s) daily She was prescribed Evenity, which was denied [...] (degenerative disc disease), cervical MRI scanned into [facility] January 11, 2014 ([facility]) DDD (degenerative disc disease), lumbosacral Essential [...] 12/31/13 EGD ESOPHAGOGASTRODUODENOSCOPY TRANSORAL DIAGNOSTIC 02/16/[address] [facility] [place] inpt ESOPHAGOGASTRODUODENOSCOPY TRANSORAL DIAGNOSTIC 05/11/15 EGD EXTRACTION, ERUPTED TOOTH OR EXPOSED ROOT (ELEVATION AND/OR FORCEPS REMOVAL) [place] teeth FOOT RIGHT OP SURGERY 01/2009 PAST [...] taking: Reported on 07/21/2024) COMPOUNDED PRESCRIPTION Viki Moe Delo defense 17 drops daily and working up to 60 drops daily (in divided doses). Serving size 30 drops. Mineral water and ethanol 20-24%) (Patient not taking: Reported on 07/21/2024) OTC NUTRITIONAL SUPPLEMENT zypan supplement (Patient not taking: Reported on 07/21/2024) COMPOUNDED PRESCRIPTION 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 Dx: Bilat sprained ankles, gait [...] are normal DATA REVIEW: Labs: Latest Ref Rn 05/02/2017 07/21/2024 Protein, Total 6.3 - 8.0 [...] which included preparing to see the patient, [id number] patient care, completing clinical documentation, obtaining and/or reviewing separately obtained history, performing a medically appropriate examination, counseling and educating the patient/family/caregiver, ordering medications, tests, or procedures, independently interpreting results (not separately reported), and communicating results to the patient/family/caregiver. Elzbieta Hernandez MD Endocrinology Associate Staff [facility] Endocrinology and Metabolism [place] [phone] Medical Decision Making: Medical Decision Making Level: 1 - N/A documented in this encounter [facility] 11-02-2024 Evaluation note Diagnosis Onset Date Resolution Abnormal electrocardiogram acute November 02, 2024 10:03am Essential (primary) hypertension chronic November 02, 2024 10:03am Nonrheumatic aortic (valve) stenosis chronic November 02 10:03am Supraventricular tachycardia chronic November 02, 2024 10:03am [facility] Work Phone: [phone] Telephone encounter Note* Telephone Encounter - Mary [...] to the Jorje Chandra Auth Appeals Pool ([id number]). You can find templates listed below to support your appeal in [facility] (Epic drop down, select patient care, select [...] Letter of Medical Necessity Jorje Hernandez Prior House Cleaner III Endocrinology & Metabolism [place] Letter scanned into chart [facility]05-25-2025 Miscellaneous Notes* Telephone Encounter - Suha, Mary - 08/22/2024 9:59 AM EDT Images from [...] request via staff message to the Jorje Prior Auth Appeals Pool ([id number]). You can find templates listed below to support your appeal in [employer] (Epic drop down, select patient care, select [...] GRIFFIN Letter of Medical Necessity Jorje GRIFFIN Clindofermín Hernandez Prior House Cleaner III Endocrinology & Metabolism [place] Letter scanned into chart documented in [facility]25 NoteHNO ID: [id number] Author: SETH CHOWDARY MD Service: ? Author Type: Physician Type: Progress Notes Filed: 08/13/2024 08:45 Note Text: SPINE SURGERY OUTPATIENT CONSULT This is an in-person visit. SERVICE DATE: 08/13/2024 PCP: Michael Snowden MD REFERRING PROVIDER: Jovanni Matthew [address] [facility] [id number] Lizette Davies is a 78 year old [...] walked recently and currently resides in a shelter facility. She does not report bowel or [...] (degenerative disc disease), cervical MRI scanned into [facility] January 11, 2014 ([facility]) DDD (degenerative disc disease), lumbosacral Essential [...] 12/31/13 EGD ESOPHAGOGASTRODUODENOSCOPY TRANSORAL DIAGNOSTIC 02/16/[address] [facility] [place] inpt ESOPHAGOGASTRODUODENOSCOPY TRANSORAL DIAGNOSTIC 05/11/15 EGD EXTRACTION, ERUPTED TOOTH OR EXPOSED ROOT (ELEVATION AND/OR FORCEPS REMOVAL) [place] teeth FOOT RIGHT OP SURGERY 01/2009 PAST SURGICAL HISTORY OF 1995 Bone fusion 1st MT and pin right foot PAST S (more content not included)...[facility]05-16-2025 History of Present illness Narrative* Seth Chowdary MD - 08/13/2024 7:55 AM EDT SPINE SURGERY OUTPATIENT CONSULT This is an in-person visit. SERVICE DATE: 08/13/2024 PCP: Michael Snowden MD REFERRING PROVIDER: Jovanni Matthew [address] [facility] [address] Lizette A Keke is a 78 year old female presenting [...] walked recently and currently resides in a shelter facility. She does not report bowel or [...] (degenerative disc disease), cervical MRI scanned into [facility] January 11, 2014 ([facility]) DDD (degenerative disc disease), lumbosacral Essential [...] 12/31/13 EGD ESOPHAGOGASTRODUODENOSCOPY TRANSORAL DIAGNOSTIC 02/16/[address] [facility] [place] inpt ESOPHAGOGASTRODUODENOSCOPY TRANSORAL DIAGNOSTIC 05/11/15 EGD EXTRACTION, ERUPTED TOOTH OR EXPOSED ROOT (ELEVATION AND/OR FORCEPS REMOVAL) 1969' [place] teeth FOOT RIGHT OP SURGERY 01/2009 PAST [...] for nausea/vomiting. COMPOUNDED PRESCRIPTION 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 Dx: Bilat sprained ankles, gait [...] TIME: 7:55 AM PAGER: documented in this encounterPark[facility]-2025 NoteHNO ID: [id number] Author: MILLIE PETTY MD Service: ? Author [...] area. on in am and off @ senna-docusate (SENNA PLUS) 8.6-50 mg per tablet [...] on 07/21/2024) COMPOUNDED PRESCRIPTION 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 Dx: Bilat sprained ankles, gait [...] (degenerative disc disease), cervical MRI scanned into [facility] January 11, 2014 ([facility]) DDD (degenerative disc disease), lumbosacral Essential [...] WHEN PFRMD 11/24/2000 Co (more content not included)...[facility]04-23-2025 Instructions* Patient Instructions* Jovanni Matthew MD - 07/21/2024 1:43 PM EDT Bring records including bone density testing to appointments with metabolic bone and spine surgeon Pain medication per pain management documented in this encounterPark[facility]04-23-2025 NoteHNO ID: [id number] Author: MILLY SINGH RN Service: ? Author [...] tests/records were reviewed: CD, reports Milly Singh RNUniversity [facility] History of Present illness Narrative* Milly Signh RN - 07/21/2024 12:28 PM EDT Patient [...] and MEDICATION The following tests/records were reviewed: DILIA, reports Milly Singh RN * Jovanni Matthew MD - 07/21/2024 12:04 PM EDT Physical Medicine and Rehabilitation New patient July 21, 2024 SUBJECTIVE HISTORY OF PRESENT ILLNESS: Lizette Davies is a 78 year old woman evaluated for back pain and concerns if needs for spine fusion/decompression Chronic back pain but right before Thanksgialessandra fell with worsening LBP. With eventual went [...] transitional care- ECF - PT stopped at [facility]. Can walk some with walker- [...] (degenerative disc disease), cervical MRI scanned into [facility] January 11, 2014 ([facility]) DDD (degenerative disc disease), lumbosacral Essential [...] 12/31/13 EGD ESOPHAGOGASTRODUODENOSCOPY TRANSORAL DIAGNOSTIC 02/16/[address] [facility] [place] inpt ESOPHAGOGASTRODUODENOSCOPY TRANSORAL DIAGNOSTIC 05/11/15 EGD EXTRACTION, ERUPTED TOOTH OR EXPOSED ROOT (ELEVATION AND/OR FORCEPS REMOVAL) 1969's [place] teeth FOOT RIGHT OP SURGERY 01/2009 PAST [...] by mouth once daily. COMPOUNDED PRESCRIPTION Viki Moe Delo defense 17 drops daily and working up to 60 drops daily (in divided doses). Serving size 30 drops. Mineral water and ethanol 20-24%) OTC NUTRITIONAL SUPPLEMENT zypan supplement COMPOUNDED PRESCRIPTION 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 Dx: Bilat sprained ankles, gait [...] cervical and LS ddd, HTN, gastroparesis, h/o AZ, h/o GIB, sarcoidosis, leg SCC, with h/o [...] which included preparing to see the patient, [id number] patient care, completing clinical documentation, obtaining and/or reviewing separately obtained history, performing a medically appropriate examination, counseling and educating the pat ient/family/caregiver, ordering medications, tests, or procedures, and communicating with other HCPs (not separately reported). documented in this encounterPark[facility]04-23-2025 NoteHNO ID: [id number] Author: JOVANNI MATTHEW MD Service: ? Author [...] transitional care- ECF - PT stopped at [facility]. Can walk some with walker- [...] type O+ Compression fracture of thoracic vertebra ([facility]) DDD (degenerative disc disease), cervical MRI scanned into [facility] January 11, 2014 ([facility]) DDD (degenerative disc disease), lumbosacral Essential [...] 12/31/13 EGD ESOPHAGOGASTRODUODENOSCOPY TRANSORAL DIAGNOSTIC 02/16/[address] [facility] [place] inpt ESOPHAGOGASTRODUODENOSCOPY TRANSORAL DIAGNOSTIC 05/11/15 EGD EXTRACTION, ERUPTED TOOTH OR EXPOSED ROOT (ELEVATION AND/OR FORCEPS REMOVAL) 1969's [place] teeth FOOT RIGHT OP SURGERY 01/2009 PAST SURGICAL HISTORY OF 1995 Bone fusion 1st MT and pin right foot PAST SURGICAL HISTORY OF 01/2013 left carpal tunnel surgery PAST SURGICAL HISTORY OF right Lasik 2001 PAST SURGICAL HISTORY OF 09/13 Skin (more content not included)...[facility]02-19-2025 Note [facility]02-18-2025 NoteWooThe [facility]01-17-2025 Evaluation note* Diagnosis Onset Date Resolution [...] April 16 3:42pm Vitamin D deficiency acute 2024 3:42pm Sarcoidosis chronic April 16, 2024 3:42pm Intractable low back pain resolved April 16, 2024 3:42pm [facility] Work Phone: 1(665) 937-524801-17-2025 [facility]01-17-2025 [facility]01-15-2025 Evaluation note* Diagnosis Onset Date Resolution [...] April 16 3:42pm Vitamin D deficiency acute 2024 3:42pm Sarcoidosis chronic April 16, 2024 3:42pm Intractable low back pain resolved April 16, 2024 3:42pm [facility] Work Phone: 1(594) 176-609101-15-2025 [facility]01-14-2025 [facility]02-02-2024 Discharge summary Author Geo Phillip [facility] May 02, 2023 3:54pm Note Date/Time May 02, 2023 3 :54pm [facility] Physical Therapy [facility] [address] [place] [address] / REHABILITATION SERVICES DISCHARGE SUMMARY MR#: [id number] Acct: [id number] Name: LIZETTE DAVIES Rep #: [id number] : 1945 77 From: Geo Phillip PT, [...] please feel free to call me at [phone]. Thank you for the referral of thispatient. Sincerely, Geo Phillip PT, ATC Balance/Gait/Functional tests Balance/Special Test Scores Lower Extremity Functional Score: 19 Improvement % Improvement: 60 <Electronically signed by Geo Phillip PT, ATC> 05/02/23 1554 CC: Dr. Michael Snowden MD ~ [facility] Signed [facility] Work Phone: 1(554) 644-185003-17-2023 Discharge summary Author Geo Phillip [facility] June 14, 2022 3:55pm Note Date/Time June 14, 2022 3:4 9pm [facility] Physical [facility] [address] [place] [address] / REHABILITATION SERVICES DISCHARGE SUMMARY MR#: [id number] Acct: [id number] Name: LIZETTE DAVIES Rep #: [id number] : 1945 76 From: Geo Phillip PT, [...] please feel free to call me at [phone]. Thank you for the referral of thispatient. Sincerely, Geo Phillip, PT, ATC Balance/Gait/Functional tests - Balance/Special Test Scores Lower Extremity Functional Score: 12 <Electronically signed by Geo Phillip PT, ATC> 06/14/22 154 CC: Dr. Michael Snowden MD ~ [facility] Signed [facility] Work Phone: Evaluation noteNo assessment information available [facility] Work Phone: Evaluation note* Diagnosis Onset Date Resolution Status Essential (primary) hypertension chronic Nonrheumatic aortic (valve) stenosis chronic Supraventricular tachycardia chronic [facility] Work Phone: Evaluation note* Diagnosis Onset Date Resolution Status Abdominal pain acute Diarrhea chronic [facility] Work Phone: Evaluation note* Diagnosis Onset Date Resolution Status Cellulitis acute Gastroparesis acute Diarrhea [facility] Work Phone: Evaluation note* Diagnosis Onset Date Resolution Status Essential (primary) hypertension chronic Nonrheumatic aortic (valve) stenosis chronic Supraventricular tachycardia chronic Cellulitis acute Gastroparesis acute Diarrhea chronic [facility] Work Phone: Evaluation note* Diagnosis Onset Date Resolution Status Cellulitis acute Gastroparesis acute Diarrhea chronic Essential (primary) hypertension chronic Nonrheumatic aortic (valve) stenosis chronic Supraventricular tachycardia [facility] Work Phone: Evaluation note* Diagnosis Osteopenia, unspecified location- Primary History of vertebral compression fracture Spondylolisthesis, grade 3 Acquired spondylolisthesis documented in this encounter [facility]* Diagnosis Acquired spondylolisthesis- Primary Cervical spondylosis without myelopathy Neural foraminal stenosis of lumbar spine Spinal stenosis, lumbar region, without neurogenic claudication Closed compression fracture of body of L1 vertebra (HCC) documented in this encounter [facility]* Diagnosis Age-related osteoporosis with current pathological fracture, initial encounter- Primary documented in this encounter [facility]Eval[facility]* Diagnosis Onset Date Resolution Status Admit Date Abnormal electrocardiogram acute November 02, 2024 10:03am Essential (primary) hypertension chr onic November 02, 2024 10:03am Nonrheumatic aortic (valve) stenosis chronic November 02, 2024 10:03am Supraventricular tachycardia chronic November 02, 2024 10:03am [facility] Work Phone: Evaluation note* Diagnosis History of vertebral compression fracture- Primary Age-related osteoporosis with current pathological fracture, initial encounter documented in this encounter [facility] (narrative)No reason for referral information availableS[facility] [place] Work Phone: Chief Complaint and Reason for [...] 3 M FU Pain in left knee [id number] Reason for Visit Cellulitis Gastroparesis Diarrhea Essential (primary) hypertension Nonrheumatic aortic (valve) stenosis Supraventricular tachycardia Chief Complaint BALANCE RX HERE 3 M FU Pain in left knee MURMUR, SVT [id number] Reason for Visit Essential (primary) hypertension Nonrheumatic [...] 10:56am ADMISSION EXAM May 25, 2024 1:55pm [facility] June 01, 2024 4: 00am [facility] WORK June 08, 2024 4 :00am Reason for Visit Admit Date Age-related osteoporosis wit h current pathol fracture of vertebra April 14, 2024 3:42pm Compression fracture of L1 vertebra Ralphru caban 2024 3:42pm Radiculopathy of lumbar region [...] 10:56am ADMISSION EXAM May 25, 2024 1:55pm [facility] WORK June 01, 2024 4: 00am [facility] WORK June 08, 2024 4 :00am [facility] WORK June 15, 2024 5 :00am [...] 10:56am ADMISSION EXAM May 25, 2024 1:55pm [facility] WORK June 01, 2024 4: 00am [facility] LAB WORK June 08, 2024 4 :00am [facility]IT[facility] LAB WORK June 15, 2024 5 :00am PENITENT[facility]ARY LAB WORK June 22, 2024 5 :00am [...] 10:56am ADMISSION EXAM May 25, 2024 1:55pm [facility] WORK June 01, 2024 4: 00am [facility] WORK June 08, 2024 4 :00am [facility] WORK June 15, 2024 5 :00am [facility] WORK June 22, 2024 5 :00am NEW CONCERN June 23, 2024 4:5 8pm [facility] WORK June 29, 2024 5: 00am [facility] WORK July 06, 2024 5: 00am [facility] WORK July 13, 2024 5 :00am Chief Complaint Admit Date LUMBAR COMPRESSION FRACTURE W PAIN Janua ry 2024 3:42pm ADMISSION EXAM May 21, 2024 10:56am ADMISSION EXAM May 25, 2024 1:55pm [facility] WORK June 01, 2024 4: 00am [facility] WORK June 08, 2024 4 :00am [facility] WORK June 15, 2024 5 :00am [facility]IT[facility] LAB WORK June 22, 2024 5 :00am NEW CONCERN June 23, 2024 4:5 8pm [facility] WORK June 29, 2024 5: 00am [facility] WORK July 06, 2024 5: 00am [facility] LAB WORK July 13, 2024 5 :00am P[facility]ITENT[facility] LAB WORK July 20, 2024 4 :00am PENITENT[facility]ARY LAB WORK July 27, 2024 5 :00am [...] 10:56am ADMISSION EXAM May 25, 2024 1:55pm [facility] WORK June 01, 2024 4: 00am [facility] LAB WORK June 08, 2024 4 :00am PENITENT[facility] LAB WORK June 15, 2024 5 :00am PENITENTIARY LAB WORK June 22, 2024 5 :00am NEW CONCERN June 23, 2024 4:5 8pm PENITENT[facility] LAB WORK June 29, 2024 5: 00am P[facility]ITENT[facility] LAB WORK July 06, 2024 5: 00am PENITENTIARY LAB WORK July 13, 2024 5 :00am PENITENTIARY LAB WORK July 20, 2024 4 :00am PENITENTIARY LAB WORK July 27, 2024 5 :00am LABWORK August 10, 2024 5:00a m Chief Complaint Admit Date LUMBAR COMPRESSION FRACTURE W PAIN Yani ry 2024 3:42pm ADMISSION EXAM May 21, 2024 10:56am ADMISSION EXAM May 25, 2024 1:55pm [facility] WORK June 01, 2024 4: 00am P[facility] LAB WORK June 08, 2024 4 :00am PENITENTIARY LAB WORK June 15, 2024 5 :00am PENITENTIARY LAB WORK June 22, 2024 5 :00am NEW CONCERN June 23, 2024 4:5 8pm PENITENTIARY LAB WORK June 29, 2024 5: 00am PENITENTIARY LAB WORK July 06, 2024 5: 00am PENITENTIARY LAB WORK July 13, 2024 5 :00am PENITENTIARY LAB WORK July 20, 2024 4 :00am PENITENTIARY LAB WORK July 27, 2024 5 :00am PENITENTIARY LAB WORK August 03, 2024 5:00 am LABWORK August 10, 2024 5:00a m P[facility]ITENTI[facility] LAB WORK August 17, 2024 5:0 0am Chief Complaint Admit Date PENITENTIARY LAB WORK July 06, 2024 5: 00am P[facility]ITENT[facility] LAB WORK July 13, 2024 5 :00am PENITENT[facility] LAB WORK July 20, 2024 4 :00am PENITENTIARY LAB WORK July 27, 2024 5 :00am PENITENTIARY LAB WORK August 03, 2024 5:00 am LABWORK August 10, 2024 5:00a m PENITENTIARY LAB WORK August 17, 2024 5:0 0am PENITENTIARY LAB WORK August 24, 2024 5:0 0am PENITENTIARY LAB WORK August 31, 2024 5:0 0am PENITENTIARY LAB WORK' September 07, 2024 5 :00am PENITENTIARY LAB WORK September 14, 2024 5: 00am PENITENTIARY LAB WORK September 21, 2024 5: 00am PENITENTIARY LAB WORK September 28, 2024 5:0 0am PENITENT[facility]ARY LAB WORK October 14, 2024 5: 00am ABN HYPERTENSION/EKG November 02, 2024 10 :03am Reason for Visit Admit Date Abnormal electrocardiogram November 02, 2 025 10:03am Essential (primary) hypertension November 02, 2024 10:03am Nonrheumatic aortic (valve) stenosis Aug ust 2024 10:03am Supraventricular tachycardia November 02, 2024 10:03am Chief Complaint Admit Date PENITENTIARY LAB WORK July 20, 2024 4 :00am PENITENT[facility]ARY LAB WORK July 27, 2024 5 :00am PENITENTIARY LAB WORK August 03, 2024 5:00 am LABWORK August 10, 2024 5:00a m PENITENTIARY LAB WORK August 17, 2024 5:0 0am PENITENTIARY LAB WORK August 24, 2024 5:0 0am PENITENTIARY LAB WORK August 31, 2024 5:0 0am PENITENTIARY LAB WORK' September 07, 2024 5 :00am PENITENTIARY LAB WORK September 14, 2024 5: 00am PENITENTIARY LAB WORK September 21, 2024 5: 00am PENITENTIARY LAB WORK September 28, 2024 5:0 0am New Concern October 13, 2024 2:27 pm PENITENTIARY LAB WORK October 14, 2024 5: 00am ABN HYPERTENSION/EKG November 02, 2024 10 :03am Chief Complaint Admit Date PENITENTIARY LAB WORK July 20, 2024 4 :00am PENITENTIARY LAB WORK July 27, 2024 5 :00am PENITENTIARY LAB WORK August 03, 2024 5:00 am LABWORK August 10, 2024 5:00a m PENITENTIARY LAB WORK August 17, 2024 5:0 0am PENITENTIARY LAB WORK August 24, 2024 5:0 0am PENITENTIARY LAB WORK August 31, 2024 5:0 0am PENITENTIARY LAB WORKSeptember 07, 2024 5 :00am PENITENTIARY LAB WORK September 14, 2024 5: 00am PENITENTIARY LAB WORK September 21, 2024 5: 00am PENITENTIARY LAB WORK September 28, 2024 5:0 0am Follow Up Visit September 28, 2024 3:00p m New Concern October 13, 2024 2:27 pm PENITENT[facility] LAB WORK October 14, 2024 5: 00am [...] Will Yes April 10 5:15pm Power of Humanities Department Chair Yes April 10, 2021 5:15pm Advance Directive Response Recorded Date/ Time Advance Directives Yes January 1:49am Living Will Yes April 10 4:15pm Power of Humanities Department Chair Yes April 10, 2021 4:15pm Advance Directive Response Recorded Date/ Time Living Will No March 30 9:41pm Do you have a Healthcare Power of Humanities Department Chair? No March 30, 2024 9:41pm Living Will Yes April 10 5:15pm Do you have a Healthcare Power of Humanities Department Chair? Yes April 10, 2021 5:15pm Living Will No April 11 3:41pm Do you have a Healthcare Power of Humanities Department Chair? No April 11, 2024 3:41pm Living Will No April 19 5:36pm Do you have a Healthcare Power of Humanities Department Chair? No April 19, 2024 5:36pm Advance Directives Yes January 2:49am Advance Directive Response Recorded Date/ Time Living Will No April 11 3:41pm Do you have a Healthcare Power of Humanities Department Chair? No April 11, 2024 3:41pm Living Will No April 19 5:36pm Do you have a Healthcare Power of Humanities Department Chair? No April 19, 2024 5:36pm Advance Directives Yes January 2:49am Advance Directive Response Recorded Date/ Time Living Will No April 19 5:36pm Do you have a Healthcare Power of Humanities Department Chair? No April 19, 2024 5:36pm Advance Directives [...] Primary Care Provider, Referring Provider Active Dr. Quevedo Friend , DO Attending Provider Active Team Status: Active [...] Snowden MD Primary Care Provider Active Ashley GRIFFIN PA Attending Provider, Referr ing Provider Active [...] 2024 End: May 21, 2024 Audra Drake ASSOCIATE BRAND MANAGER, ASSOCIATE BRAND MANAGER-C Attending Provider Active Start: May 21, 2024 [...] Care Provider Active Start: June 22, 2024 DIEUDONNE NoeC Attending Provider Active Start: June 22, 2024 [...] June 22, 2024 End: June 22, 2024 DIEUDONNE NoeC Attending Provider Active Start: June 22, 2024 End: June 22, 2024 Team Status: Active Member Role Status Dates Dr. Michael Snowden MD Primary Care Provider Active Start: July 13, 2024 Nikia JAVIER MD Attending Provider Active Start: July 13, 2024 Dietitian Teaching Relationship Specialty Start Date End Date Michael Snowden Chi PCP - General Gerontology 09/05/17 Team Status: Inactive Member Role Status Dates Dr. Michael Snowden MD Primary Care Provider Active Start: June 23, 2024 End: June 23, 2024 Audra Drake NP ASSOCIATE BRAND MANAGER-C Attending Provider Active Start: June 23, 2024 [...] Care Provider Active Start: July 27, 2024 [facility] Noe Attending Provider Active Start: July 27, 2024 Team Status: Active Member Role Status Dates Dr. Michael Snowden MD Primary Care Provider Active Start: August 03, 2024 MAR Noe Attending Provider Active Start: August 03, 2024 Dietitian Teaching Relationship Specialty Start Date End Date Michael Snowden Chi PCP - General Gerontology 09/05/17 Dietitian Teaching Relationship Specialty Start Date End Date Michael Snowden Chi PCP - General Gerontology 09/05/17 Dietitian Teaching Relationship Specialty Start Date End Date Michael [...] 03, 2024 End: August 03, 2024 Audra Tickton OLS, ASSOCIATE BRAND MANAGER-C Attending Provider Active Start: August 03, 2024 [...] Care Provider Active Start: August 31, 2024 DIEUDONNE NoeC Attending Provider Active Start: August 31, 2024 [...] Care Provider Active Start: September 28, 2024 MAR Noe Attending Provider Active Start: September 28, 2024 Team Status: Active Member Role/Relationship Status Dates Dr. Michael Snowden MD Primary Care Provider Active Start: October 14, 2024 Nikia JAVIER MD Attending Provider Active Start: October 14, 2024 Team Status: Active Member Role/Relationship Status Dates Dr. Michael Snowden MD Primary Care Provider Active Start: November 02, 2024 DIEUDONNE NoeC Attending Provider Active Start: November 02, 2024 Team Status: Inactive Member Role/Relationship Status Dates Dr. Michael Snowden MD Primary Care Provider Active Start: November 02, 2024 End: November 02, 2024 Dr. Michael Snowden MD Referring Provider Active Start: November 02, 2024 End: November 02, 2024 Mari Medina NP ASSOCIATE BRAND MANAGER-C Attending Provider Active Start: November 02, 2024 [...] 2024 End: July 27, 2024 Audra JAVIER NP-C Attending Provider Active Start: July 27, 2024 End: July 27, 2024 Team Status: Inactive Member Role/Relationship Status Dates Dr. Michael Snowden MD Primary Care Provider Active Start: August 03, 2024 End: August 03, 2024 Audra JAIVER NP-C Attending Provider Active Start: August 03, 2024 [...] Active Start: August 31, 2024 Audra JAVIER ASSOCIATE BRAND MANAGER-C Attending Provider Active Start: August 31, 2024 Team Status: Active Member Role/Relationship Status Dates Dr. Michael Sonwden MD Primary Care Provider Active Start: September [...] Active Start: September 28, 2024 Audra JAVIER ASSOCIATE BRAND MANAGER-C Attending Provider Active Start: September 28, 2024 Team Status: Inactive Member Role/Relationship Status Dates Dr. Michael Snowden MD Primary Care Provider Active Start: October 13, 2024 End: October 13, 2024 Audra Drake NP ASSOCIATE BRAND MANAGER-C Attending Provider Active Start: October 13, 2024 End: October 13, 2024 Team Status: Active Member Role/Relationship Status Dates Dr. Michael Snowden MD Primary Care Provider Active Start: October 14, 2024 Nikia JAVIER MD Attending Provider Active Start: October 14, 2024 Team Status: Active Member Role/Relationship Status Dates Dr. Michael Snowden MD Primary Care Provider Active Start: November 02, 2024 Audra JAVIER ASSOCIATE BRAND MANAGER-C Attending Provider Active Start: November 02, 2024 Team Status: Inactive Member Role/Relationship Status Dates Dr. Michael Snowden MD Primary Care Provider Active Start: November 02, 2024 End: November 02, 2024 Dr. Michael Snowden MD Referring Provider Active Start: November 02, 2024 End: November 02, 2024 Mari Medina ASSOCIATE BRAND MANAGER, ASSOCIATE BRAND MANAGER-C Attending Provider Active Start: November 02, 2024 [...] 2024 End: October 13, 2024 Audra Drake ASSOCIATE BRAND MANAGER, ASSOCIATE BRAND MANAGER-C Attending Provider Active Start: October 13, 2024 End: October 13, 2024 Dietitian Teaching Relationship Specialty Start Date End Date Michael Snowden Chi PCP - General Gerontology 09/05/17 Dietitian Teaching Relationship Specialty Start Date End Date Michael Snowden Chi PCP - General Gerontology 09/05/17 Dietitian Teaching Relationship Specialty Start Date End Date Michael Snowden Chi PCP - General Gerontology 09/05/17 Source Comments (unrecognize d section and content) In the event this informatio n is protected by the Federal Confidentiality of Alcohol and Drug Abuse Patient Records regulations: The Federal rules restrict any use of the information to criminally investigate or prosecute any alcohol or drug abuse patient.[facility] the event this information is protected by the Federal Confidentiality of Alcohol and Drug Abuse Patient Records regulations: The Federal rules restrict any use of the information to criminally investigate or prosecute any alcohol or drug abuse patient.[facility] the event this information is protected by the Federal Confidentiality of Alcohol and Drug Abuse Patient Records regulations: The Federal rules restrict any use of the information to criminally investigate or prosecute any alcohol or drug abuse patient.[facility] the event this information is protected by the Federal Confidentiality of Alcohol and Drug Abuse Patient Records regulations: The Federal rules restrict any use of the information to criminally investigate or prosecute any alcohol or drug abuse patient.[facility] the event this information is protected by the Federal Confidentiality of Alcohol and Drug Abuse Patient Records regulations: The Federal rules restrict any use of the information to criminally investigate or prosecute any alcohol or drug abuse patient.[facility] the event this information is protected by the Federal Confidentiality of Alcohol and Drug Abuse Patient Records regulations: The Federal rules restrict any use of the information to criminally investigate or prosecute any alcohol or drug abuse patient.[facility] the event this information is protected by the Federal Confidentiality of Alcohol and Drug Abuse Patient Records regulations: The Federal rules restrict any use of the information to criminally investigate or prosecute any alcohol or drug abuse patient.[facility] the event this information is protected by the Federal Confidentiality of Alcohol and Drug Abuse Patient Records regulations: The Federal rules restrict any use of the information to criminally investigate or prosecute any alcohol or drug abuse patient.[facility] the event this information is protected by the Federal Confidentiality of Alcohol and Drug Abuse Patient Records regulations: The Federal rules restrict any use of the information to criminally investigate or prosecute any alcohol or drug abuse patient.[facility] Reason for Visit (unrecogniz ed section and content) Reason Comments New Patient Reason Comments Established Patient Reason Comments Medication Preauthorization Evenity 210m g- Denied Reason Comments Osteoporosis Reason Comments Prior Authorization [employer] Reason Comments Appointment INFORMATION SOURCE (unrecogn ized section and content) DATE CREATED AUTHOR 11/25/2024 [facility] DATE CREATED AUTHOR AUTHOR'S VIKY ATION 12/18/2024 [facility] [place] FOR RECORDS PERTAINING TO PATIENTS WHO ARE [...] BE BASED ON THE PRIMARY CLINICAL RECORDS. [employer] [facility]. provides no warranty or guarantee of the accuracy or completeness of information in this document.
--- NOTE | 2024-12-20 17:37 | STRESSREP ---
Stress Test Report Pharmacologic myocardial perfusion stress test. 79-year-old lady with a history of abnormal EKG. Resting EKG demonstrates normal sinus rhythm with a rate of 65 bpm. Resting blood pressure is 122/80 mmHg. 0.4 mg of regadenoson was infused per usual protocol followed by rapid intravenous saline flush injection. Continuous EKG monitoring was performed. The maximum heart rate was 144 bpm which was 102% of max impacted heart rate the maximum workload was 1 metabolic equivalent. At rest there were no ST or T wave changes noted to suggest ischemia and at peak infusion nonspecific ST changes were noted which did not meet the criteria for ischemia. No clinical angina is noted. The final blood pressure was 122/80 mmHg. Myocardial perfusion protocol. 11 mCi of technetium 99m sestamibi was injected at rest. 0.4 mg of regadenoson was infused per usual protocol. At peak infusion 33 mCi of technetium 99m sestamibi was injected stress images were obtained stress and rest images were reconstructed and compared in the short axis vertical long and horizontal long axis. Gated images were also obtained. Perfusion SPECT analysis: Review of the stress images demonstrate normal uptake of tracer noted in all areas of the myocardium. There is a small area in the mid anterior wall with reduced perfusion. 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 Gated SPECT analysis: The gated ejection fraction is 86%. 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 Preserved ejection fraction.
== END | disposition home or self-care (01) ==
LOC: CVS 07:10
PROVIDERS: PCP Family Medicine Geriatric Medicine; Referring Provider Nurse Practitioner Gerontology; Visit Provider Nurse Practitioner Gerontology
DX: I35.0 Nonrheumatic aortic (valve) stenosis (principal); R94.31 Abnormal electrocardiogram [ECG] [EKG]
CPT/HCPCS: 78452; 93017; 93306; A9500; Q9957; A4216; C8929; J2785

== ENCOUNTER → 2025-01-04 06:55 | Outpatient (REF) | payer MEDICARE, SELFPAY ==
[2025-01-04 10:02] LABS: Hematocrit 37.0 % (37-47); Hemoglobin 11.6 g/dL (12.0-15.0); Immature Granulocytes Count 0.020 X10^3/uL (0.0-0.0); Mean Corp Hgb Conc 31.4 g/dL (32-36); Mean Corpuscular Volume 100.8 fL (81-99); Mean Platelet Vol. 10.2 fl (6.2-12.0); NRBC Flagged by Analyzer 0 % (0-5); Platelet Count 209 K/mm3 (150-450); RBC Distribution Width CV 13.2 % (11.6-14.6); RBC Distribution Width SD 49.3 fl (35.1-43.9); Red Blood Count 3.67 M/mm3 (4.2-5.4); White Blood Count 6.1 K/mm3 (4.4-11.0)
[2025-01-04 10:22] LABS: Anion Gap 9 (5-15); BUN 18 mg/dL (4-19); BUN/Creat Ratio 21.3 RATIO (10-20); Calcium,Total 8.9 mg/dL (7.6-11.0); Carbon Dioxide 26.9 mmol/L (21.0-32.0); Chloride 106 mmol/L (98-108); Glucose 83 mg/dL (70-99); Potassium 4.4 mmol/L (3.3-5.1)
== END ==
LOC: OLS.WHLTCC 06:55
PROVIDERS: PCP Family Medicine Geriatric Medicine; Visit Provider Internal Medicine
DX: S32.010D Wedge compression fracture of first lumbar vertebra, subsequent encounter for fracture with routine healing (principal); M54.16 Radiculopathy, lumbar region; M48.061 Spinal stenosis, lumbar region without neurogenic claudication; M54.50 Low back pain, unspecified; I10 Essential (primary) hypertension
CPT/HCPCS: 36415; 80048; 85025

== ENCOUNTER → 2025-02-01 05:00 | Outpatient (REF) | payer MEDICARE, SELFPAY ==
--- OUTSIDE RECORDS SUMMARY | 2025-02-01 04:40 | XMS RPT_ITS | CCD ---
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 Michael Bates Primary Care Provider Sp, Dr. Michael Bates Referring Provider Friend, Dr. Quevedo Attending Provider [phone] Sp, Dr. Michael Bates Primary Care Provider [...] Richard MD Referring Provider Unavaila ble Tickton KILN TESTER-C, Audra Attending Provider Sp OROZCO, Dr. Michael Bates Primary Care Provider [phone] Sp OROZCO, Dr. Michael Bates Attending Provider Sp OROZCO, Dr. Michael Bates Referring Provider Zachery STAPLES, Dr. Hedrick Attending Provider Zachery STAPLES, Dr. Hedrick Emergency Provider Leela STAPLES, Dr. Cahrles Emergency Provider Roland OROZCO, Dr. Ballesteros Admit [...] Rei OROZCO, Dr. Ayon Other Provider Tickton KILN TESTER-C, Audra Attending Provider Beatriz OROZCO, Dr. Montejo Attending Provider Beatriz ORZOCO, Nikia Attending Provider Unavaila navin Henderson MD, Nikia Referring Provider Unavaila ble Tickton KILN TESTER-C, Audra Attending Provider Michael Snowden Chi Primary Care Provider Sp OROZCO, Dr. Michael Bates Primary Care Provider Sp OROZCO, Dr. Michael Bates Attending Provider Sp OROZCO, Dr. Michael Bates Referring Provider Sp OROZCO, Dr. Michael Bates Primary Care Provider Sp OROZCO, Dr. Michael Bates Primary Care Provider Nikia Henderson MD Attending Provider Unavaila navin Henderson MD, Nikia Referring Provider Unavaila navin Drake KILN TESTER-C, Audra Attending Provider Sp OROZCO, Dr. Michael Bates Referring Provider Adam KILN TESTER-CMari Attending Provider Sp OROZCO, Dr. Michael Bates Primary Care Provider Beatriz OROZCO, Nikia Attending Provider Unavaila navin Drake KILN TESTER-C, Audra Attending Provider Beatriz OROZCO, Dr. Montejo Attending Provider SETH CHOWDARY Attending Unavailable VIPUL JOVANNI Referring Unavailable SP, [facility] Primary Care Unavailable ELZBIETA HERNANDEZ Attending Unavaila ble SP, [facility] Primary Care Unavailable JEJOVANNI CRUMP Attending Unavailable SELF Referring Unavailable SP, MICHAEL [facility] Primary Care Unavailable AJAY GRANT Attending Unav ailable VIPUL JOVANNI Referring Unavailable SP, [facility] Primary Care Unavailable MILLIE PETTY Referring Unavailable SP, [facility] Primary Care Unavailable Sp OROZCO, Dr. Michael Bates Primary Care Physician Noelle KILN TESTER-C, Audra Attending Physician Nikia Henderson MD Attending Physician Unavail able Dr. Nikia Henderson MD Attending Physician Noelle KILN TESTER-C, Audra Attending Physician Adam KILN TESTER-CMari Attending Physician Nikia Henderson MD Referring Provider Unavaila navin Medina KILN TESTER-CMari Referring Provider [phone] Frances OROZCO, Dr. Queen Attending Physician Dr. Michael Snowden MD, Chi Primary Care Physician Nikia Henderson MD Attending Physician Unavail able Noelle TIDWELL-CAudra Attending Physician Beatriz OROZCO, Dr. Montejo Attending Physician Audra Drake Attending Physician Dr. Michael Snowden MD, Chi Referring Provider Adam TIDWELL-C, Mari Attending Physician Nikia Henderson MD Referring Provider Unavaila ble Adam KILN TESTER-C, Mari Referring Provider Frances OROZCO, Dr. Queen Attending Physician Audra García Attending Unavailable Sp, Michael Chi Primary Care Unavailable Sp, Michael Chi Primary Care Unavailable Fahad Martinez Attending Unavailable Oleghe OLSNikia Attending Unavailabl e Sp, Michael Chi Primary Care Unavailable Adam TIDWELL, Mari Attending Unavailable Sp, Michael Chi Primary Care Unavailable Audra García Attending Unavailable Sp, Michael Chi Primary Care Unavailable Sp, Michael Chi Primary Care Unavailable Gabo Minaya Consulting Unavailable Sp, Michael Chi Admitting Unavailable Sp, Michael Chi Referring Unavailable Sp, Michael Chi Attending Unavailable Audra García Attending Unavailable Sp, Michael Chi Primary Care Unavailable Oleghe OLSOnelbe Attending Unavailabl e Sp, Michael Chi Primary Care Unavailable Sp, Michael Chi Primary Care Unavailable Oleghe OLSOnelbe Attending Unavailabl e Sp, Michael Chi Primary Care Unavailable Floridalma Bingham Attending Unavailable Sp, Michael Chi Primary Care Unavailable Sp, Michael Chi Referring Unavailable Sp, Michael Chi Attending Unavailable Adam KILN TESTER, Mari Referring Unavailable Adam KILN TESTER, Mari Attending Unavailable Sp, Michael Chi Primary Care Unavailable Oleghe OLSOnelbe Attending Unavailabl e Sp, Mcihael Chi Primary Care Unavailable Audra García Attending Unavailable Sp, Michael Chi Primary Care Unavailable Oleghe OLSOnelbe Attending Unavailabl e Sp, Michael Chi Primary Care Unavailable Oleghe OLS Efguanakoongbe Attending Unavailabl e Sp, Michael Chi Primary Care Unavailable Oleghe OLSOnelbe Attending Unavailabl e Sp, Michael Chi Primary Care Unavailable Oleghe OLSOnelbe Attending Unavailabl e Oleghe OLS, Efewongbe Referring [...] Sp, Michael Chi Primary Care Unavailable Adam KILN TESTER, Mari Attending Unavailable Oleghe OLS, Efewongbe Attending Unavailabl [...] e Sp, Michael Chi Primary Care Unavailable Basali Ayman Consulting Unavailable Sp, Michael Chi Primary Care Unavailable Lesli Watkins Admitting Unavailable Gabo Hernandez Attending Unavailable Lesli Watkins Consulting Unavailable Gabo Hernandez Consulting Unavailable Lesli Watkins Attending Unavailable Noelle KILN TESTERAudra Attending Unavailable Sp, Michael Chi Primary Care Unavailable Sp, Michael Chi Primary Care Unavailable Oleghe, Efewongbe Attending Unavailable Audra Drake NP Attending Unavailable Sp, Michael Chi Primary Care Unavailable Noelle KILN TESTERAudra Attending Unavailable Sp, Michael Chi Primary Care Unavailable Sp, Michael Chi Primary Care Unavailable Tami Caldwell Attending Unavailable Sp, Michael Chi Referring Unavailable Mari Medina NP Attending Unavailable Sp, Michael Chi Primary Care Unavailable Sp, Michael Chi Referring Unavailable Sp, Michael Chi Primary Care Unavailable Sae Brandt Attending Unavailable Sp, Michael Chi Referring Unavailable Nagajothi, Nagapradee Referring Unavailabl e Nagajothi, Nagapradee Attending Unavailabl e Sp, Michael Chi Primary Care Unavailable Gabo Hernandez Attending Unavailable Basali, Ayman Consulting Unavailable Sp, Michael Chi Primary Care Unavailable Watkins Lesli Admitting Unavailable Watkins Lesli Consulting Unavailable Gabo Hernandez Consulting Unavailable Oleghe OLS, Efewongbe Referring Unavailabl e Nikia Flores Attending Unavailabl e Sp, Michael Chi Primary Care Unavailable Nikia Henderson Attending Unavailable Sp, Michael Chi Primary Care Unavailable Gabo Hernandez Attending Unavailable Aissatou Lieberman Consulting Unavailable Sp, Michael Chi Primary Care Unavailable Lesli Watkins Admitting Unavailable Lesli Watkins Consulting Unavailable Nikia Flores Attending Unavailabl e Sp, Michael Chi Primary Care Unavailable Audra García Attending Unavailable Sp, Michael Chi Primary Care Unavailable Allergies Allergy Classification Reported Allergen(s) Allergy Type Date of Onset Reaction(s) Facility (3 sources) alendronate drug allergy 015 GI upset [facility] Work Phone: (3 sources) amLODIPine drug allergy 016 "freezes up limbs" [facility] Work Phone: (3 sources) atorvastatin drug allergy 016 muscle weakness [facility] Work Phone: (20 sources) codeine; Translations: [CODEINE] drug allergy 009 Intolerance [facility] Work Phone: (20 sources) ibuprofen; Translations: [IBUPROFEN] drug allergy 005 GI Upset [facility] Work Phone: (20 sources) lisinopril; Translations: [LISINOPRIL] drug allergy 012 Swelling, Anaphylaxis [facility] Work Phone: (3 sources) NIFEdipine drug allergy 016 "freezes up limbs" [facility] Work Phone: (3 sources) HCTZ drug allergy 015 low sodium [facility] Work Phone: (6 sources) NKDA drug allergy 013 [facility] Work Phone: (20 sources) Alendronate; Translations: [ALENDRONATE SODIUM] Drug Allergy 015 GI Upset, Other: See Comments [facility] (20 sources) amLODIPine Drug Allergy Freezes up limbs [facility] (20 sources) atorvastatin; Translations: [ATORVASTATIN] Drug Allergy 016 Intolerance [facility] (20 sources) Doxazosin; Translations: [DOXAZOSIN] Drug Allergy Other: See Comments [facility] Comment on above: VASOVAGAL (20 sources) hydroCHLOROthiazide; Translations: [HYDROCHLOROTHIAZIDE] Drug Allergy Other: See Comments [facility] (20 sources) NIFEdipine; Translations: [NIFEDIPINE] Drug Allergy Other: See Comments [facility] (1 source) HCTA Propensity to adverse reactions Low sodium [facility] Work Phone: (1 source) Ibuprofen Drug Allergy [facility] Work Phone: Comment on above: abd pain (1 source) Codeine/Codeine Derivatives; Translations: [Codeine/Codeine Derivatives] Allergy to substance (finding) [facility]; [facility] Work Phone: Comment on above: Headache (1 source) Alendronate; Translations: [ALENDRONATE] Drug Allergy 015 [facility] (1 source) Alendronate Drug Allergy [facility] Repository (1 source) amLODIPine Drug Allergy [facility] Repository (1 source) atorvastatin Drug Allergy [facility] Repository (1 source) Doxazosin Drug Allergy [facility] Repository (1 source) hydroCHLOROthiazide Drug Allergy [facility] Repository (1 source) NIFEdipine Drug Allergy [facility] Repository Medications Current Medications Medication Drug Class(es) Dates Sig (Normalized) Sig (Original) B Complex-Vitamin C-Folic Acid 400 mcg Tablet (3 sources) Start: 05-19-2024 Start: 05-19-2024 B Complex-Yesenia min C-Folic Acid 400 mcg Tablet Active 1 {tbl} PO DAILY 0 May 19, 2024 1:00am baclofen 5 mg oral tablet (20 sources) gamma-Aminobutyric Acid-ergic Agonist Start: 05-29-2024 take 1 tablet by mouth three times daily baclofen 5 mg tablet Take 5 mg by mouth three times a day. 05/29/2024 Active Start: 04-16-2024 End: 05-19-2024 take 5 mg by mouth three times daily cholecalciferol 0.025 mg ora l tablet (20 sources) Vitamin D Start: 05-19-2024 take 1 tablet by libby th once daily Start: 04-03-2019 End: 05-19-2024 take 1 capsule by mouth once daily Cholecalciferol (Vitamin D3) 5,000 UNIT capsule Discontinued 5000 U PO DAILY April 03, 2019 1:00am May 19, 2024 9:04pm Supplement Start: 02-04-2012 take 1 tablet by libby th twice daily VITAMIN D 2000 UNIT TABS One tablet by mouth twice daily CHOLECALCIFEROL [id number] Bret Daniels MD Start: 02-04-2012 take 2 tablets by mo [facility] once daily VITAMIN D 2000 UNIT TABS Two tablets by mouth daily CHOLECALCIFEROL [id number] Lyric Murcia RN take 1 tablet by libby th once daily cholecalciferol (VITAMIN D) 1,000 unit tab tablet Take 1,000 Units by mouth once daily. Active take 1 tablet by libby th once daily Cholecalciferol, Vitamin D3, (VITAMIN D-3) 5,000 unit tab Take 5,000 Units by mouth once daily. Active citalopram 10 mg oral tablet (14 sources) Serotonin Reuptake Inhibitor Start: 11-02-2024 take 1 tablet by mouth once daily COMPOUNDED PRESCRIPTION (18 sources) Start: 01-25-2016 COMPOUNDED PRESCRIPTION Najmacely [employer] defense 17 drops daily and working up to 60 drops daily (in divided doses). Serving size 30 drops. 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 Dx: Bilat sprained ankles, gait instability. 1 Each 0 06/07/2015 Active 1 ml denosumab 60 mg/ml prefilled syringe (3 sources) RANK Ligand Inhibitor Start: 11-18-2024 End: 09-20-2025 denosumab 60 mg injection (PROLIA) docusate sodium 50 mg / sennosides, chcf 8.6 mg oral tablet (20 sources) Start: 04-16-2024 End: 05-19-2024 Start: 04-16-2024 End: 05-19-2024 take 1 tablet by mouth once stacey y senna-docusate (SENNA PLUS) 8.6-50 mg per tablet Take 1 tablet by mouth once daily. Active folic acid 1 mg oral tablet (20 sources) Start: 06-11-2016 take 1 tablet by mouth once daily lidocaine 0.05 mg/mg medicated patch (20 sources) Antiarrhythmic, Amide Local Anesthetic Start: 04-16-2024 End: 04-16-2024 lidocaine 0.04 mg/mg / menthol 0.04 mg/mg medicated patch (9 sources) Antiarrhythmic, Amide Local Anesthetic lidocaine-mentho l 4-4 % ptmd Apply to affected area. on in am and off @ HS Active magnesium chloride 598 mg delayed release oral tablet (20 sources) Start: 05-19-2024 take 1 tablet by mouth once stacey y magnesium chloride [address] tablet Take 64 mg by mouth once daily. Active magnesium citrate 58.2 mg/ml oral solution (20 sources) Start: 05-19-2024 take 1 mL by mouth o nce daily as needed for constipation Start: 05-19-2024 MAGNESIUM CITRAT E ORAL Take 300 mL by mouth as needed. Active 24 hr metoprolol succinate 25 mg extended release oral tablet (20 sources) beta-Adrenergic Berenice Start: 12-21-2024 take 1 tablet by mouth once daily Start: 04-16-2024 End: 11-02-2024 take 2 tablets by mouth twice daily Metoprolol Succinate 25 mg Tablet Extended Release 24 Hr Discontinued 12.5 mg PO TWICE A DAY 0 0 April 16, 2024 1:00am November 02, 2024 10:10am heart health Start: 08-18-2017 End: 04-16-2024 take 1 tablet by mouth twice daily Metoprolol Succinate 50 MG tablet Discontinued 50 mg PO TWICE A DAY 60 0 August 27, 2017 9:00pm April 16, 2024 1:04pm blood pressure Start: 11-01-2016 End: 11-02-2024 take 1 tablet by mouth twice daily Metoprolol Succinate 25 mg tablet extended release 24 hr Discontinued 25 mg PO TWICE A DAY June 16, 2017 12:00am August 18, 2017 3:35pm Start: 11-01-2016 End: 08-18-2017 Start: 11-13-2014 End: 06-16-2017 Metoprolol Succinate 200 MG tablet extended release 24 hr Discontinued 25 mg PO DAILY November 13, 2014 12:00am June 16, 2017 1:39pm Start: 11-13-2014 End: 06-16-2017 take 25 mg by mouth once daily Metoprolol Succinate Di scontinued 25 MG PO DAILY November 13, 2014 12:00am June 16, 2017 1:39pm Start: 05-04-2013 End: 11-07-2014 Metoprolol Succinate 50 MG t ablet Discontinued 25 mg PO DAILY May 04, 2013 1:00am November 07, 2014 6:47pm Start: 05-04-2013 End: 11-07-2014 Start: 05-04-2013 End: 11-07-2014 take 25 mg by mouth once daily Metoprolol Succinate Di scontinued 25 MG PO DAILY May 04, 2013 1:00am November 07, 2014 6:47pm Start: 02-08-2013 take 1 tablet by libby th twice daily TOPROL XL 25 MG [id number] One tablet by mouth twice daily METOPROLOL SUCCINATE [id number] Bret Daniels MD Start: 02-08-2013 take 1 tablet by libby th twice daily TOPROL XL 25 MG [id number] One tablet by mouth twice daily METOPROLOL SUCCINATE [id number] Lyric Murcia RN Start: 02-08-2013 take 1 tablet by libby th once daily TOPROL XL 25 MG [id number] One tablet by mouth daily METOPROLOL SUCCINATE [id number] Ashley Ernst PA-C Start: 02-08-2013 take 1 tablet by libby th twice daily TOPROL XL 25 MG [id number] One tablet by mouth twice daily METOPROLOL SUCCINATE [id number] Bret Daniels MD Start: 02-08-2013 take 1 tablet by libby th once daily TOPROL XL 50 MG [id number] One half tablet by mouth daily METOPROLOL SUCCINATE [id number] Bret Daniels MD Start: 02-08-2013 take 1 tablet by libby th twice daily TOPROL XL 25 MG [id number] One tablet by mouth twice daily METOPROLOL SUCCINATE [id number] Lyric Murcia RN Start: 02-08-2013 take 1 tablet by libby th once daily TOPROL XL 25 MG [id number] One tablet by mouth daily METOPROLOL SUCCINATE [id number] Ashley Ernst PA-C Start: 02-04-2012 take 1 tablet by libby th once daily TOPROL XL 50 MG [id number] One tablet by mouth daily METOPROLOL SUCCINATE [id number] Bret Daniels MD Start: 02-04-2012 take 1 tablet by libby th once daily TOPROL XL 50 MG [id number] One tablet by mouth daily METOPROLOL SUCCINATE [id number] Bret Daniels MD MULTIVITAMIN TAB (9 sources) Start: 09-02-2005 MULTIVITAMIN TAB Take one(1) tablet daily. 0 09/02/2005 Active [...] sources) Opioid Agonist Start: 04-11-2024 End: 05-19-2024 take 1 tablet by mouth every six hours as needed for pain Start: 04-11-2024 End: 05-19-2024 take 1 tablet by mouth twice daily as needed for pain Tramadol 50 mg tablet Discontinued 50 mg PO TWICE DAILY NEEDED as needed for pain April 11, 2024 1:00am May 19, 2024 9:06pm vitamin b12 0.5 mg oral tablet (20 sources) Vitamin B12 Start: 05-19-2024 take 2 tablets by mo uth once daily Start: 05-19-2024 take 2 tablets by mo uth once daily Cyanocobalamin (Vitamin B-12) 500 mcg Tablet Active 1000 ug PO DAILY 0 May 19, 2024 1:00am Start: 04-11-2024 End: 05-19-2024 take 1 tablet by mouth once daily Cyanocobalamin (Vitamin B-12) 1,000 mcg tablet extended release Discontinued 1000 ug PO DAILY April 11, 2024 1:00am May 19, 2024 9:04pm supplement Start: 02-04-2012 take 1 tablet by libby th once daily VITAMIN B-12 100 MCG TABS One tablet by mouth daily CYANOCOBALAMIN [id number] Bret Daniels MD take 1 tablet by [...] tablet by mouth daily B COMPLEX VITAMINS [id number] Bret Daniels MD Start: 05-22-2014 End: 07-14-2018 [...] tablet by mouth daily B COMPLEX VITAMINS [id number] Lyric Murcia RN Start: 02-04-2012 End: 03-08-2015 take 1 tablet by mouth once daily VITAMIN B COMPLEX TABS One tablet by mouth daily B COMPLEX VITAMINS [id number] Ashley Ernst PA-C VITAMIN B COMPLEX ORAL [...] tablet (20 sources) Start: 04-08-2019 End: 05-19-2024 take 2 tablets by mouth every eight hours Start: 04-08-2019 End: 04-26-2019 take 1 tablet by mouth every four hours Acetaminophen 500 MG tablet Discontinued 500 mg PO Q4H April 08, 2019 1:00am April 26, 2019 9:12pm PAIN Start: 04-08-2019 End: 05-19-2024 take 2 tablets by mouth every six hours as needed for pain Acetaminophen 500 MG tablet Discontinued 1000 mg PO EVERY 6 HOURS NEEDED as needed for Pain Score 1-10/10 0 April 26, 2019 1:00am May 19, 2024 9:03pm Start: 04-08-2019 End: 05-19-2024 Start: 08-18-2017 End: 07-14-2018 take 2 tablets by mouth every four hours as needed for pain Acetaminophen 325 MG tablet Discontinued 650 mg PO EVERY 4 HOURS NEEDED as needed for Pain 0 August 18, 2017 12:00am July 14, 2018 2:49pm Start: 08-18-2017 End: 07-14-2018 take 650 mg by mouth every four hours as needed Acetaminophen Discontinued 650 MG PO EVERY 4 HOURS NEEDED August 18, 2017 12:00am July 14, 2018 2:49pm Start: 07-15-2016 End: 08-18-2017 take 1 tablet by mouth once daily Acetaminophen 500 MG tablet Discontinued 500 mg PO DAILY July 15, 2016 12:00am August 18, 2017 3:35pm Start: 07-15-2016 End: 08-18-2017 Start: 03-17-2015 take 1 tablet by libby [...] 0 03/17/2015 Active acetaminophen 325 mg / HYDROcodone bitartrate 5 mg oral tablet (20 sources) Opioid Agonist Start: 03-31-2024 End: 04-11-2024 Hydrocodone-Acetaminophen 5- 325 mg tablet Discontinued 1 {tbl} PO Q8H as needed for pain 10 3 0 March 31, 2024 April 11, 2024 1:31pm Sciatica of right side Sciatica, right side Start: 03-31-2024 End: 04-11-2024 Start: 07-15-2016 End: 07-02-2017 Hydrocodone-Acetaminophen 1 TABLET tablet Discontinued 1 {tbl} PO EVERY 4 HOURS NEEDED as needed for Pain 12 0 July 15, 2016 12:00am July 02, 2017 2:34pm Start: 07-15-2016 End: 07-02-2017 Start: 07-15-2016 End: 07-02-2017 take 1 tablet by mouth every four hours as needed Hydrocodone-Acetaminophen Discontinued 1 TABLET PO EVERY 4 HOURS NEEDED July 15, 2016 12:00am July 02, 2017 2:34pm [place] (20 sources) Start: 05-25-2020 End: 02-23-2024 Start: 05-25-2020 End: 02-23-2024 [place] 650 mg tablet Discon tinued mg PO May 25, 2020 1:00am February 23, 2024 1:42pm Start: 05-25-2020 [place] Active MG PO May 25, 2020 12:00am Start: 05-25-2020 [place] Active MG PO May 25, 2020 1:00am Start: 07-02-2017 End: 08-18-2017 take 1 tablet by mouth once daily [place] 650 mg tablet Discontinued 650 mg PO daily 0 July 02, 2017 12:00am August 18, 2017 3:35pm Start: 07-02-2017 End: 08-18-2017 Start: 07-02-2017 End: 08-18-2017 take 1 tablet by mouth once daily [place] 650 mg tablet Discontinued 650 mg PO daily July 02, 2017 12:00am August 18, 2017 3:35pm Start: 07-02-2017 End: 08-18-2017 take 650 mg by mouth once daily [place] Discontinued 6 50 MG PO daily July 01, 2017 11:00pm August 18, 2017 2:35pm Start: 07-02-2017 End: 08-18-2017 take 650 mg by mouth once daily [place] Discontinued 6 50 MG PO daily July 02, 2017 12:00am August 18, 2017 3:35pm Start: 02-03-2013 End: 02-10-2014 ALFALFA 650 MG TABS as neede d ALFALFA [id number] Ashley Ernst PA-C amLODIPine 2.5 mg oral tablet (20 sources) Dihydropyridine Calcium Channel Berenice Start: 11-02-2024 End: 12-21-2024 take 4 tablets by mouth once Amlodipine 2.5 mg tablet Discontinued 10 mg PO ONCE November 02, 2024 10:07am December 21, 2024 4:07pm blood pressure Start: 04-09-2019 End: 12-21-2024 take 1 tablet by mouth twice daily Amlodipine 2.5 mg tablet Discontinued 2.5 mg PO TWICE A DAY 180 3 March 29, 2024 9:57am November 02, 2024 10:10am blood pressure Start: 04-09-2019 End: 05-09-2023 take 1 tablet by mouth once daily Amlodipine 2.5 MG tablet Discontinued 2.5 mg PO DAILY 30 0 April 26, 2019 9:13pm January 06, 2023 3:01pm blood pressure Start: 04-26-2015 End: 06-13-2015 take 1 tablet by mouth once daily AMLODIPINE BESYLATE 5 MG TABS One tablet by mouth daily AMLODIPINE BESYLATE [id number] Bret Daniels MD Start: 08-03-2014 End: 08-05-2014 take 1 tablet by mouth once daily NORVASC 2.5 MG TABS One tablet by mouth daily AMLODIPINE BESYLATE [id number] Lyric Murcia RN amoxicillin 500 mg oral capsule (20 sources) Penicillin-class Antibacterial Start: 02-01-2019 End: 02-12-2019 take 2 capsules by mouth twice daily Amoxicillin 500 mg capsule Discontinued 1000 mg PO TWICE A DAY 40 10 February 01, 2019 1:00am February 10, 2019 1:00am February 12, 2019 1:08am Start: 02-01-2019 End: 02-12-2019 take 1000 mg [...] One tablet by mouth daily ASCORBIC ACID [id number] Lyric Murcia RN aspirin 81 mg chewable tablet (20 sources) Platelet Aggregation Inhibitor, Nonsteroidal Anti-inflammatory Drug Start: 11-07-2014 End: 02-19-2015 take 1 tablet by mouth once daily Aspirin 81 MG Tab.Chew Discontinued 81 mg PO DAILY@0800 30 0 November 07, 2014 12:00am February 19, 2015 12:16pm aspirin 400 mg / caffeine 32 mg oral tablet (20 sources) Nonsteroidal Anti-inflammatory Drug, Central Nervous System Stimulant, Methylxanthine Start: 02-16-2015 End: 02-19-2015 Aspirin-Caffeine (Anacin 400-32 Mg Tablet) 1 EACH tablet Discontinued 1 NMA PO February 16, 2015 1:00am February 19, 2015 12:17pm Start: 08-03-2014 End: 03-01-2015 take 2 tablets by mouth four times daily as needed ANACIN 400-32 MG TABS Two tablets by mouth four times daily as needed ASPIRIN-CAFFEINE [id number] Lyric Murcia RN Start: 08-03-2014 take 2 tablets by mo uth four times daily as needed ANACIN 400-32 MG TABS Two tablets by mouth four times daily as needed ASPIRIN-CAFFEINE [id number] Lyric Murcia RN Start: 08-03-2014 take 2 [...] Lyric Murcia RN Start: 05-22-2014 End: 11-07-2014 Aspirin-Caffeine (Anacin) 1 EACH tablet Discontinued 2 {tbl} PO 5 TIMES DAILY as needed for Pain May 22, 2014 1:00am November 07, 2014 6:47pm Start: 05-22-2014 End: 11-07-2014 Start: 02-03-2013 ANACIN 400-32 MG TABS as needed ASPIRIN-CAFFEINE [id number] Elenita Villalobos RN Start: 02-03-2013 End: 02-10-2014 ANACIN 400-32 MG TABS as nee ded ASPIRIN-CAFFEINE [id number] Ashley Ernst PA-C Start: 02-03-2013 End: 02-10-2014 ANACIN 400-32 MG TABS as nee ded ASPIRIN-CAFFEINE Ashley Ernst PA-C Start: 02-03-2013 ANACIN 400-32 MG TABS as needed ASPIRIN-CAFFEINE Elenita Villalobos RN atorvastatin 20 mg oral tablet (6 sources) HMG-CoA Reductase Inhibitor Start: 03-01-2015 End: 04-26-2015 take 1 tablet by mouth once daily ATORVASTATIN CALCIUM 20 MG TABS One tablet by mouth daily ATORVASTATIN CALCIUM [id number] Jessica Smith RN azaTHIOprine 100 mg injection (6 sources) Purine Antimetabolite Start: 03-01-2015 End: 03-08-2015 take 1 tablet by mouth once daily AZASAN 100 MG TABS One tablet by mouth daily AZATHIOPRINE [id number] Lyric Murcia RN biotin (6 sources) Start: 02-04-2012 End: 02-08-2013 take 1 tablet by mouth once daily BIOTIN FORTE TABS One tablet by mouth daily BIOTIN TABS [id number] Ashley Ernst PA-C Start: 02-04-2012 take 1 tablet by libby th once daily BIOTIN FORTE TABS One tablet by mouth daily BIOTIN TABS [id number] Bret Daniels MD CALCIUM-MAGNESIUM TABS (3 sources) Start: 02-04-2012 take 2 tablets by mouth once daily THERESE-MAG TABS Two tablets by mouth daily CALCIUM-MAGNESIUM TABS [id number] Bret Daniels MD CATALYN (3 sources) Start: 06-11-2016 take 1 tablet by mouth once daily CATALYN One tablet by mouth daily NATAN Ernst PA-C chlorthalidone 50 mg oral tablet (20 sources) Thiazide-like Diuretic Start: 10-13-2014 End: 11-07-2014 Chlorthalidone 50 MG tablet Discontinued 25 mg PO DAILY October 13, 2014 12:00am November 07, 2014 6:47pm Start: 10-13-2014 End: 11-07-2014 take 25 mg by mouth once daily Chlorthalidone Disconti nued 25 MG PO DAILY October 13, 2014 12:00am November 07, 2014 6:47pm Start: 08-05-2014 End: 01-23-2015 take 1 tablet by mouth once daily CHLORTHALIDONE 25 MG TABS One half tablet by mouth daily CHLORTHALIDONE [id number] Aimee Davis RN Start: 05-22-2014 End: 05-23-2014 Chlorthalidone 50 MG tablet Discontinued 25 mg PO DAILY May 22, 2014 1:00am May 23, 2014 3:11pm Start: 05-22-2014 End: 05-23-2014 take 25 mg by mouth once daily Chlorthalidone Disconti nued 25 MG PO DAILY May 22, 2014 1:00am May 23, 2014 3:11pm clindamycin 300 mg oral capsule (20 sources) Lincosamide Antibacterial Start: 09-25-2022 End: 10-02-2022 take 1 capsule by mouth every eight hours Clindamycin Hcl 300 mg capsule Discontinued 300 mg PO Q8H 21 7 0 September 25, 2022 12:00am October 01, 2022 12:00am October 02, 2022 12:03am take 4 capsules by mouth every h our CLINDAMYCIN HCL, 150MG (Oral Capsule) 4 capsules 1 hour prior to dental procedure for 0 days Refills: 0 Ordered: 19-Mar-2006 Mast Day DELGADILLO Active Comments: due to knee replacement Comment on above: due to knee replacem ent docusate sodium 100 mg oral capsule (20 sources) Start : 11-07 End: 11-14 take 2 capsules by mouth twice daily as needed for constipation Docusate Sodium (Dok) 100 MG capsule Discontinued 200 mg PO TWICE DAILY NEEDED as needed for Constipation 60 0 November 07, 2014 12:00am November 14, 2014 9:49am doxazosin 4 mg oral tablet (20 sources) alpha-Adrenergic Berenice Start : 04-06 End: 04-06 take 1 tablet by mouth once daily Doxazosin (Cardura) 4 mg tablet Discontinued 4 mg PO DAILY 90 3 April 06, 2019 1:00am April 07, 2019 12:04am VIKI [employer]ENSE (3 sources) Start : 06-11 WILMANPALParveenLEXINIA MICOBIAL DEFENSE 29 drops daily HOUTParveenUYNIA MICOBIAL DEFENSE Ashley rEnst PA-C hydroCHLOROthiazide 25 mg oral tablet (6 sources) Thiazide Diuretic Start : 08-13 End: 08-03 take 1 tablet by mouth once daily HYDROCHLOROTHIAZIDE 25 MG TABS One tablet by mouth daily HYDROCHLOROTHIAZIDE [id number] Bret Daniels MD lactulose 667 mg/ml oral solution (20 sources) Osmotic Laxative Start : 05-25 End: 01-06 take 20 g by mouth once daily as needed Lactulose 20 gram/30 mL solution Discontinued 20 g PO DAILY as needed for . May 25, 2020 1:00am January 06, 2023 2:38pm Start: 03-01-2015 LACTULOSE 10 G M/15ML SOLN 30 cc (20 gm) by mouth daily as needed LACTULOSE [id number] Bret Daniels MD Start: 11-14-2014 End: 07-15-2016 Lactulose 20 GM/30 ML Udc Di scontinued 20 g PO DAILY 32 0 November 14, 2014 12:00am July 15, 2016 12:10am may increase to three tablespoons daily if needed, may reduce to one tablespoon daily if having diarrhea Start: 11-14-2014 End: 07-15-2016 lisinopril 2.5 mg oral tablet (1 source) Angiotensin Converting Enzyme Inhibitor take 1 tablet by mouth twice daily LISINOPRIL, 2.5MG (Oral Tablet) 1 BID for 0 days Refills: 0 Ordered: 19-Mar-2006 Day Pacheco RN Active Magnesium (20 sources) Start: 3 End: Magnesium 250 mg tablet Discontinued 400 mg PO DAILY January 06, 2023 2:37pm May 19, 2024 9:04pm Supplement Start: 01-06-2023 End: 05-19-2024 Magnesium 250 mg tablet Disc ontinued 400 mg PO DAILY January 06, 2023 2:37pm May 19, 2024 9:04pm Start: 10-09-2023 take 400 mg by mouth once stacey [...] 03, 2019 1:00am January 06, 2023 2:38pm Supplement Start: 04-03-2019 End: 01-06-2023 take 1 tablet [...] 04-03-2019 take 250 mg by mouth once staecy y Magnesium Active 250 MG PO DAILY April 03, 2019 1:00am Start: 06-16-2017 End: 07-14-2018 take 3 tablets by mouth at bedtime Magnesium 250 MG tablet Discontinued 750 mg PO AT BEDTIME June 16, 2017 1:38pm July 14, 2018 2:55pm supplement Start: 06-16-2017 End: 07-14-2018 take 3 tablets [...] at bedtime 250mg tablets MAGNESIUM OXIDE CAPS [id number] Bret Daniels MD Start: 08-13-2013 MAGNESIUM OXID E CAPS 4 tablets at bedtime MAGNESIUM OXIDE CAPS [id number] Bret Daniels MD melatonin 3 mg oral tablet (20 sources) Start: 04-26-2019 End: 05-11-2019 take 1 tablet by mouth at bedtime Melatonin 3 MG tablet Discontinued 3 mg PO AT BEDTIME 0 April 26, 2019 1:00am May 11, 2019 3:41pm Start: 04-26-2019 End: 05-11-2019 menthol 0.0044 mg/mg / zinc oxide 0.206 mg/mg topical ointment (4 sources) Start: 05-19-2024 End: 11-02-2024 Menthol-Zinc Oxide (Calmosep mervin) 0.44-20.6 % Ointment Discontinued 1 NMA TOPICAL TWICE A DAY 0 0 May 19, 2024 1:00am November 02, 2024 10:10am Please contact the information source for Protocol details. Start: 05-19-2024 End: 11-02-2024 Start: 05-19-2024 Menthol-Zinc O xide (Calmoseptine) 0.44-20.6 % Ointment Active 1 NMA TOPICAL TWICE A DAY 0 May 19, 2024 1:00am Please contact the information source for Protocol details. metoclopramide 10 mg oral tablet (20 sources) Dopamine-2 Receptor Antagonist Start: 11-07-2014 End: 11-14-2014 take 1 tablet by mouth at bedtime Metoclopramide Hcl 10 MG tablet Discontinued 10 mg PO BEFORE MEALS AND AT BEDTIME 120 0 November 07, 2014 12:00am November 14, 2014 9:48am Start: 11-07-2014 End: 11-14-2014 Mineral Oil/Petrolatum,White (Eucerin) 1 APPLIC Jar (15 [...] One tablet by mouth daily MULTIPLE VITAMIN [id number] Bret Daniels MD Umhxqjjzakkj-Vh-Gzxd- Minerals (13 sources) Start: 02-16-2015 End: 07-02-2017 take 1 tablet by mouth once daily Pezxwbxbwhmb-Kf-Sqac-Mine rals Discontinued 1 TABLET PO DAILY February 16, 2015 12:00am July 02, 2017 1:34pm Start: 02-16-2015 End: 07-02-2017 take 1 tablet by mouth once daily Bldoqzysfrkb-Bn-Ygjf-Minerals Discontinu ed 1 TABLET PO DAILY February 16, 2015 1:00am July 02, 2017 2:34pm Qzzyiofabvnt-Np-Mkxt-Mineral s 1 EACH tablet (3 sources) Start: 02-16-2015 End: 07-02-2017 take 1 tablet by mouth once daily Ooanwlrptuvf-Ry-Iipx-Minerals 1 EACH tablet Discontinued 1 {tbl} PO DAILY February 16, 2015 1:00am July 02, 2017 2:34pm naproxen 250 mg oral tablet (6 sources) Nonst eroid al Anti- infla mmato ry Drug Start: 08-03-2014 End: 08-05-2014 take 1 tablet by mouth three times daily as needed NAPROXEN 250 MG TABS One tablet by mouth three times daily as needed NAPROXEN [id number] Bret S MD Frances nitrofurantoin, macrocrystal s 25 mg / nitrofurantoin, monohydrate 75 mg oral capsule (20 sources) Nitro furan Antib acter ial Start: 04-10-2021 End: 01-06-2023 take 1 capsule by mouth every twelve hours at mealtime Nitrofurantoin Monohyd/M-Cryst (Macrobid) 100 mg capsule Discontinued 100 mg PO Q12H 10 5 0 April 10, 2021 1:00am January 06, 2023 2:38pm must administer with a meal/food nortriptyline 10 mg oral capsule (20 sources) Tricy clic Antid epres raphael Start: 08-27-2017 End: 07-14-2018 take 1 capsule by mouth at bedtime Nortriptyline 10 MG capsule Discontinued 10 mg PO AT BEDTIME 30 0 August 27, 2017 12:00am July 14, 2018 2:56pm Start: 08-27-2017 End: 07-14-2018 nystatin 100 unt/mg topical powder (20 sources) Polyene Antifungal Start: 04-16-2024 End: 11-02-2024 Nystatin (Nyamyc) 100,000 unit/gram Powder Discontinued 1 NMA TOPICAL TWICE A DAY 0 0 May 19, 2024 1:00am November 02, 2024 10:10am Please contact the information source for Protocol details. Start: 04-16-2024 End: 11-02-2024 Start: 09-25-2022 End: 10-02-2022 Nystatin 100,000 unit/gram c ream Discontinued 1 NMA TOPICAL TWICE A DAY 30 7 0 September 25, 2022 4:10pm October 01, 2022 12:00am October 02, 2022 12:03am Start: 09-25-2022 End: 10-02-2022 Start: 09-25-2022 End: 10-02-2022 Nystatin Discontinued 1 APPL IC TOPICAL TWICE A DAY 30 7 September 25, 2022 4:10pm October 02, 2022 12:03am Start: 04-26-2019 End: 05-11-2019 Nystatin 1 APPLIC bottle Dis continued 1 NMA TOPICAL 0600,2200 0 April 26, 2019 1:00am May 11, 2019 3:42pm Please contact the information source for Protocol details. Start: 04-26-2019 End: 05-11-2019 Nystatin Discontinued 1 APPL IC TOPICAL 0600,2200 April 26, 2019 1:00am May 11, 2019 3:42pm Start: 08-27-2017 End: 07-14-2018 Nystatin 1 APPLIC bottle Dis continued 1 NMA TOPICAL 0600,2200 0 August 27, 2017 12:00am July 14, 2018 2:55pm Please contact the information source for Protocol details. Start: 08-27-2017 End: 07-14-2018 Nystatin Discontinued 1 APPL IC TOPICAL 0600,2200 August 27, 2017 12:00am July 14, 2018 2:55pm oxyCODONE hydrochloride 5 mg oral tablet (20 sources) Opioid Agonist Start: 09-03-2024 End: 12-26-2024 take 1 tablet by mouth every four hours as needed for pain Oxycodone 5 mg tablet Discontinued 5 mg PO Q4H as needed for pain 120 30 0 November 26, 2024 December 25, 2024 12:00am December 26, 2024 12:10am Lumbosacral radiculopathy Radiculopathy, lumbosacral region Start: 06-03-2024 End: 08-31-2024 take 1 tablet by mouth every four hours as needed for pain Oxycodone 5 mg tablet Discontinued 5 mg PO Q4H as needed for pain 60 20 0 August 11, 2024 August 30, 2024 12:00am August 31, 2024 12:07am Lumbosacral radiculopathy Radiculopathy, lumbosacral region Start: 04-16-2024 End: 05-31-2024 take 1 tablet by mouth every four hours as needed for pain Oxycodone 5 mg tablet Discontinued 5 mg PO EVERY 4 HOURS NEEDED as needed for Pain Score 6-10 Or Pre Pt/Ot 30 10 0 May 21, 2024 May 30, 2024 1:00am May 31, 2024 1:13am Lumbosacral radiculopathy Radiculopathy, lumbosacral region take 1 capsule by mo [facility] every four hours as needed oxyCODONE ir (OXYIR) 5 mg capsule Take 5 mg by mouth every 4 hours as needed for pain. 0 Active pantoprazole 40 mg delayed release oral tablet (20 sources) Proton Pump Inhibitor Start: 11-18-2018 End: 02-01-2019 take 2 tablets by mouth once daily, then take 1 tablet by mouth once daily Pantoprazole 40 MG tablet Discontinued 40 mg PO DAILY 30 0 November 18, 2018 12:00am February 01, 2019 6:08pm Take 2 pills daily for 7 days then decrease to 1 pill a day Start: 03-01-2015 End: 06-13-2015 take 1 tablet by mouth once daily PROTONIX 40 MG TBEC One tablet by mouth daily PANTOPRAZOLE SODIUM [id number] Bret Daniels MD Start: 03-01-2015 [facility] PROT[facility] 40 MG TBEC One tablet by mouth twice daily PANTOPRAZOLE SODIUM [id number] Lyric Murcia RN petrolatum 330 mg/ml topical cream (2 sources) Start: 04-26-2019 End: 05-11-2019 Mineral Oil/Petrolatum,White (Eucerin) 1 APPLIC Jar Discontinued 1 NMA TOPICAL AT BEDTIME 0 April 26, 2019 1:00am May 11, 2019 3:42pm Please contact the information source for Protocol details. potassium chloride 10 meq extended release oral tablet (20 sources) Start: 05-04-2013 End: 11-14-2014 Potassium Chloride (Klor-Con 10) 10 MEQ Tablet.Er Discontinued 20 meq PO DAILY May 04, 2013 1:00am November 14, 2014 9:49am Start: 02-08-2013 End: 03-01-2015 take 1 tablet by mouth once daily KLOR-CON M20 20 MEQ CR-TABS One tablet by mouth daily POTASSIUM CHLORIDE IRMA CR [id number] Lyric Murcia RN Start: 02-08-2013 take 1 tablet by libby th once daily KLOR-CON M20 20 MEQ CR-TABS One tablet by mouth daily POTASSIUM CHLORIDE IRMA CR [id number] Ashley Ernst PA-C Start: 02-08-2013 take 1 tablet by libby th once daily KLOR-CON M20 20 MEQ CR-TABS One tablet by mouth daily POTASSIUM CHLORIDE IRMA CR [id number] Ashley Ernst PA-C Start: 02-08-2013 End: 03-01-2015 take 1 tablet by mouth once daily KLOR-CON M20 20 MEQ CR-TABS One tablet by mouth daily POTASSIUM CHLORIDE IRMA CR [id number] Lyric Murcia RN Start: 08-13-2012 take 1 tablet by libby th twice daily KLOR-CON M20 20 MEQ CR-TABS One tablet by mouth twice daily POTASSIUM CHLORIDE IRMA CR [id number] Lyric Murcia RN Start: 08-13-2012 take 1 tablet by libby th twice daily KLOR-CON M20 20 MEQ CR-TABS One tablet by mouth twice daily POTASSIUM CHLORIDE IRMA CR [id number] Lyric Murcia RN predniSONE 10 mg oral tablet (9 sources) Corticosteroid Start: 03-01-2015 End: 03-08-2015 take 1 tablet by mouth once daily PREDNISONE 10 MG TABS One tablet by mouth daily PREDNISONE [id number] Ashley Ernst PA-C sulfamethoxazole 800 mg / trimethoprim 160 mg oral tablet (20 sources) Dihydrofolate Reductase Inhibitor Antibacterial, Sulfonamide Antimicrobial Start: 04-03-2019 End: 04-09-2019 Sulfamethoxazole- Trimethoprim 1 TABLET tablet Discontinued 1 {tbl} PO TWICE A DAY April 07, 2019 12:04am April 09, 2019 11:53am UTI Start: 04-03-2019 End: 04-09-2019 Start: 04-03-2019 End: 04-09-2019 take 1 tablet by mouth twice daily Sulfamethoxazole-Trimethoprim Discontinued 1 TABLET PO TWICE A DAY April 07, 2019 12:04am April 09, 2019 11:53am 24 hr tolterodine tartrate 2 mg extended release oral capsule (20 sources) Cholinergic Muscarinic Antagonist Start: 08-27-2017 End: 07-14-2018 take 1 capsule by mouth every twenty-four hours at bedtime Tolterodine 2 MG capsule,extended release 24hr Discontinued 2 mg PO AT BEDTIME 0 August 27, 2017 12:00am July 14, 2018 2:56pm Turmeric extract (3 sources) Start: 04-11-2024 End: 05-19-2024 take 1 capsule by mouth once daily Turmeric 400 mg capsule Discontinued 400 mg PO DAILY April 11, 2024 1:00am May 19, 2024 9:05pm supplement Start: 04-11-2024 End: 05-19-2024 take 1 capsule by mouth once daily Turmeric 400 mg capsule Discontinued 400 mg PO DAILY April 11, 2024 1:00am May 19, 2024 9:05pm vitamin a 40951 unt oral capsule (20 sources) Vitamin A Start: 07-02-2017 End: 07-14-2018 Vitamin A Palmitate 10,000 unit capsule Discontinued 31970 U PO daily 0 July 02, 2017 12:00am July 14, 2018 2:54pm supplement Vitamin B Complex 1 EACH capsule (3 sources) Start: 05-22-2014 End: 07-14-2018 Vitamin B Complex 1 EACH capsule Discontinued 1 NMA PO DAILY May 22, 2014 1:00am July 14, 2018 2:54pm supplement Start: 05-22-2014 End: 07-14-2018 Vitamin B Complex 1 EACH cap lazarus Discontinued 1 NMA PO DAILY May 22, 2014 1:00am July 14, 2018 2:54pm Vitamin B Complex 1 EACH tablet (3 sources) Start: 04-03-2019 End: 05-19-2024 Vitamin B Complex 1 EACH tab let Discontinued 1 NMA PO DAILY April 03, 2019 1:00am May 19, 2024 9:05pm Supplement Start: 04-03-2019 End: 05-19-2024 Vitamin B Complex 1 EACH tab let Discontinued 1 NMA PO DAILY April 03, 2019 1:00am May 19, 2024 9:05pm CHOLECALCIFEROL (3 sources) Start: 02-04-2012 take 3 tablets by mouth once daily VITAMIN D 1000 UNIT TABS Three tablets by mouth daily CHOLECALCIFEROL [id number] Bret Daniels MD Start: 02-04-2012 take 3 tablets by [facility] once daily VITAMIN D 1000 UNIT TABS Three tablets by mouth daily CHOLECALCIFEROL [id number] Bret Daniels MD Zypan (16 sources) Start: 10-13-2014 End: 02-19-2015 Zypan Discontinued [...] Onset: 5 Episodic Deficiency and other anemia (2 sources) Folate deficiency anemia, unspecified; Translations: [Folate deficiency anemia, unspecified] Onset: 5 Episodic E Codes: Fall (13 sources) Fall; Translations: [Unspecified fall, initial encounter] [...] sources) Sarcoidosis; Translations: [Sarcoidosis, unspecified] 06-03-2022 Chronic Malaise and fatigue (20 sources) Asthenia; Translations: [Other malaise] Onset: 5 04-16-2024 Episodic Menopausal disorders (20 sources) Postmenopausal bleeding; Translations: [Postmenopausal bleeding] 04-16-2024 Chronic Mood disorders (2 sources) Dysthymia; Translations: [Dysthymic] 02-13-2015 Chronic Comment on above: at this point will gregorio sweeney as she doesnt want to tryother meds Nutritional deficiencies (20 sources) Vitamin D deficiency; Translations: [Vitamin D deficiency, unspecified] Onset: 5 04-16-2024 Chronic Open wounds of head; neck; and trunk (13 sources) Scalp laceration; Translations: [Laceration without foreign body of scalp, initial encounter] 03-04-2024 Episodic Osteoarthritis (10 sources) Osteoarthrosis, unspecified whether generalized or localized, lower leg; Translations: [Osteoarthritis] Onset: 9 02-27-2006 Chronic Comment on above: s/pknee replacement on the left- 2004 Other acquired deformities (13 sources) Lumbar spondylolisthesis; Translations: [Spondylolisthesis, lumbar region] [...] Resolved: 2 03-12-2022 Episodic Other gastrointestinal disorders (20 sources) Abdominal [...] fracture] Onset: Episodic Other nervous system disorders (20 sources) Peripheral neuropathic pain; Translations: [Unspecified mononeuropathy of bilateral lower limbs] 04-16-2024 Chronic Other nervous system disorders (13 sources) Syringomyelia; 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] 11-14-2023 Chronic Other nervous system disorders (17 sources) Unable to walk; Translations: [Difficulty in [...] symbolic dysfunctions; Translations: [Other symbolic dysfunctions] Onset: Episodic Other nutritional; endocrine; and metabolic disorders (12 sources) Body mass index (BMI) 33.0-33.9, adult; Translations: [Body mass index (BMI) 40.0-44.9, adult] Onset: 4 Resolved: 5 03-08-2015 Chronic Other nutritional; endocrine; and metabolic disorders (15 sources) Obesity; Translations: [Body mass index 30+ - obesity] 01-04-2022 Chronic Other nutritional; endocrine; and metabolic disorders (20 sources) Hypomagnesemia; Translations: [Hypomagnesemia] 04-16-2024 Chronic Other nutritional; endocrine; and metabolic disorders (1 source) Body mass index 30+ - obesity; Translations: [Obesity, unspecified] 01-04-2022 Chronic Other nutritional; endocrine; and metabolic disorders (1 source) Hypomagnesemia; Translations: [Hypomagnesemia] Onset: 5 Chronic Other screening for suspected conditions (not mental disorders or infectious disease) (20 sources) Patient encounter status; Translations: [Encounter for [...] Onset: 4 04-08-2024 Episodic Sprains and strains (13 sources) Strain of neck muscle; Translations: [Strain of muscle, fascia and tendon at neck level, initial encounter] 03-04-2024 Episodic Superficial injury; contusion (13 sources) Injury of forehead; Translations: [Contusion of [...] Onset: 04-05-2008 01-18-2009 Episodic Biliary tract disease (9 sources) Chronic cholecystitis with calculus; Translations: [Calculus of gallbladder with chronic cholecystitis without obstruction] Onset: 11-21-2015 11-21-2015 Episodic Cardiac dysrhythmias (3 sources) Palpitations; Translations: [Palpitations] Onset: 02-03-2012 02-03-2012 Episodic Disorders of lipid metabolism (9 sources) Hyperlipidemia; Translations: [Hyperlipidemia, unspecified] Onset: 02-27-2005 Resolved: 07-30-2012 07-30-2012 Chronic Gastroduodenal ulcer (except hemorrhage) (9 sources) Gastric ulcer without hemorrhage AND without perforation; Translations: [Gastric ulcer, unspecified as acute or chronic, without hemorrhage or perforation] Onset: 05-11-2015 Resolved: 05-11-2015 05-11-2015 Chronic Headache; including migraine (1 source) Headache; including migraine Hemorrhoids (9 sources) Internal hemorrhoids; Translations: [Other hemorrhoids] Onset: 03-08-2005 10-09-2023 Episodic Other acquired deformities (11 sources) Spondylolisthesis, grade 3; Translations: [Spondylolisthesis, site unspecified] Onset: 04-22-2014 07-21-2024 Episodic Other acquired deformities (1 source) Spondylolisthesis, site unspecified; Translations: [Spondylolisthesis, grade 3] Onset: 04-22-2014 Episodic Other bone disease and musculoskeletal deformities (1 source) Other specified disorders of bone density and structure, unspecified site; Translations: [Osteopenia, unspecified location] Onset: 07-21-2024 Episodic Other circulatory disease (20 sources) History [...] 09-02-2005 10-09-2023 Episodic Other connective tissue disease (9 sources) Tibialis tendinitis; Translations: [Posterior tibial tendinitis, unspecified leg] Onset: 10-19-2007 01-18-2009 Episodic Other connective tissue disease (9 sources) Muscle weakness; Translations: [Muscle weakness (generalized)] Onset: 07-07-2014 07-07-2014 Episodic Other connective tissue disease (9 sources) Ischial bursitis ; Translations: [Other bursitis of hip, right hip] Onset: 04-20-2015 04-20-2015 Episodic Other disorders of stomach and duodenum (6 sources) Gastroparesis; Translations: [Gastroparesis] Onset: 02-23-2024 09-25-2022 Episodic Other fractures (9 sources) Closed [...] source) Constipation, unspecified; Translations: [Constipation, unspecified] Onset: 09-01-2024 Episodic Other gastrointestinal disorders (1 source) Functional [...] 02-03-2012 02-03-2012 Episodic Other nervous system disorders (9 sources) Paresthesia of hand ; Translations: [Anesthesia of skin] Onset: 12-14-2013 12-14-2013 Episodic Other nervous system disorders (18 sources) Abnormal gait; Translations: [Unsteadiness on feet] Onset: 12-14-2013 12-14-2013 Episodic Other nervous system disorders (9 sources) Impairment of balance; Translations: [Other abnormalities of gait and mobility] Onset: 10-12-2015 10-12-2015 Episodic Other nutritional; endocrine; and metabolic disorders (9 sources) Body mass index 40+ - severely obese; Translations: [Morbid (severe) obesity due to excess calories] Resolved: 01-25-2016 01-25-2016 Chronic Pathological fracture (20 sources) Pathological fracture of vertebra due to osteoporosis; Translations: [Age-related osteoporosis with current pathological fracture, vertebra(e), initial encounter for fracture] Onset: 04-16-2024 04-13-2024 Episodic Unclassified (3 sources) FH: Hypertension; Translations: [...] Test Name Value Interpretation Reference Range Facility Cardiovascular stress test r eportOrdered By: Bret Daniels on 12-20-2024 Study report [facility] Work Phone: Echo Complete W/ Contraston 12-20-2024 Echo Complete W/ Contrast Normal [facility] Echocardiogram study reportO rdered By: Bret Daniels on 12-20-2024 Study report [facility] Work Phone: Stress Reporton 12-20-2024 Stress Report Normal [facility] Absolute lymphocyte countOrd ered By: Nikia Henderson on 11-30-2024 Lymphocytes Auto (Unsp spec) [#/Vol] 1.71 10*3/uL 0.83-4.51 [facility] Absolute neutrophil countOrd ered By: Nikia Henderson on 11-30-2024 Neutrophils (Bld) [#/Vol] 3.3 10*3/uL 2.0-7.7 [facility] Anion gap in Serum or Plasma Ordered By: Nikia Henderson on 11-30-2024 Anion gap [Moles/Vol] 9 mmol/L 5-15 [facility] Automated lymphocyte count a s percentage of total leukocytesOrdered By: Nikia Henderson on 11-30-2024 Lymphocytes/100 WBC Auto (Unsp spec) 29.6 % 19-41 [facility] BUN/creatinine ratioOrdered By: Nikia Henderson on 11-30-2024 Urea nitrogen/Creatinine [Mass ratio] 24.6 mg/mg High 10-20 [facility] Basophil percentageOrdered B y: Nikia Henderson on 11-30-2024 Basophils/100 WBC (Bld) 1.0 % 0-[address] [facility] Carbon dioxide, total [Moles /volume] in Central venous bloodOrdered By: Nikia Henderson on 11-30-2024 CO2 [Moles/Vol] 27.0 mmol/L 21.0-32.0 [facility] Chloride assayOrdered By: Cecilia Henderson on 11-30-2024 Chloride [Moles/Vol] 106 mmol/L 98-108 [facility] Eosinophil percentageOrdered By: Nikia Henderson on 11-30-2024 Eosinophils/100 WBC (Bld) 4.7 % 0-5 [facility] [facility] Erythrocyte distribution wid th ratioOrdered By: Nikia Henderson on 11-30-2024 Erythrocyte distribution width (RBC) [Ratio] 12.8 % 11.6-14.6 [facility] Erythrocyte distribution wid th standard deviationOrdered By: Nikia Henderson on 11-30-2024 Erythrocyte distribution width (RBC) [Ratio] 47.1 fl High 35.1-43.9 [facility] Glomerular filtration rate ( GFR) estimation/1.73 sq m using serum, plasma, or whole bOrdered By: Nikia Henderson on 11-30-2024 GFR/1.73 sq M.predicted among non-blacks MDRD (S/P/Bld) [Vol rate/Area] 77 mL/min/{1.73_m2} >60 [facility] Comment on above: mL/min/1.73m2 CKD-EP I Creatinine Equation (2020) Hematocrit Auto (Bld) [Volum e fraction]Ordered By: Nikia Henderson on 11-30-2024 Hematocrit (Bld) [Volume fraction] 38.4 % 37-47 [facility] Hemoglobin measurementOrdere d By: Nikia Henderson on 11-30-2024 Hemoglobin (Bld) [Mass/Vol] 12.2 g/dL 12.0-15. 0 [facility] Immature granulocytes/100 WB C Auto (Bld)Ordered By: Nikia Henderson on 11-30-2024 Immature granulocytes/100 WBC (Bld) 0.200 % 0.0-0.9 [facility] Comment on above: IG% - Immature Granu locytes (promyelocytes, myelocytes and metamyelocytes) > 1% indicates that a LEFT SHIFT is Present. MCV (mean corpuscular volume ) determinationOrdered By: Nikia Henderson on 11-30-2024 MCV (RBC) [Entitic vol] 100.3 fL High 81-[address] [facility] Mean corpuscular hemoglobin (MCH) determinationOrdered By: Nikia Henderson on 11-30-2024 MCH (RBC) [Entitic mass] 31.9 pg 27.0-32.0 [facility] Mean corpuscular hemoglobin concentration (MCHC) determinationOrdered By: Nikia Henderson on 11-30-2024 MCHC (RBC) [Mass/Vol] 31.8 g/dL Low 32-36 [facility] Mean platelet volume determi nationOrdered By: Nikia Henderson on 11-30-2024 Platelet mean volume (Bld) [Entitic vol] 10.0 fL 6.2-12.0 [facility] Monocyte percentageOrdered B y: Nikia Henderson on 11-30-2024 Monocytes/100 WBC (Bld) 8.0 % 0-[address] [facility] Neutrophil percentageOrdered By: Nikia Henderson on 11-30-2024 Neutrophils/100 WBC (Bld) 56.5 % 47-70 [facility] Nucleated red blood cell per centageOrdered By: Nikia Henderson on 11-30-2024 Nucleated RBC/100 WBC (Bld) [Ratio] 0 % 0-5 [facility] Platelet countOrdered By: Cecilia Henderson on 11-30-2024 Platelets (Bld) [#/Vol] 211 10*3/uL 150-450 [facility] Potassium measurement (mass/ volume)Ordered By: iNkia Henderson on 11-30-2024 Potassium (Unsp spec) [Mass/Vol] 4.4 mmol/L 3.3-5.1 [facility] RBC Auto (Bld) [#/Vol]Ordere d By: Nikia Henderson on 11-30-2024 RBC (Bld) [#/Vol] 3.83 10*6/uL Low 4.2-5.4 [facility] Serum creatinine measurement (mass/volume)Ordered By: Nikia Henderson on 11-30-2024 Creatinine [Mass/Vol] 0.79 mg/dL 0.70-1.20 [facility] Serum glucose measurement (m ass/volume)Ordered By: guanakohartwickheladio Jainvioletta on 11-30-2024 Glucose [Mass/Vol] 82 mg/dL 70-99 [facility] Serum or plasma calcium gianluca urement (mass/volume)Or[facility] By: [facility] on 11-30-2024 Calcium [Mass/Vol] 9.2 mg/dL 7.6-11.0 [facility] Serum or plasma urea nitroge n measurement (mass/volume)Ordered By: [facility] on 11-30-2024 Urea nitrogen [Mass/Vol] 19 mg/dL 4-19 [facility] Sodium levelOrdered By: [facility] dalila Beatriz on 11-30-2024 Sodium [Moles/Vol] 142 mmol/L 133-145 [facility] White blood cell (WBC) count Ordered By: Nikia Henderson on 11-30-2024 WBC (Bld) [#/Vol] 5.8 10*3/uL 4.4-11.0 [facility] CNPNon 11-23-2024 CNPN Telephone (ENWSTR) LIZETTE DAVIES ([id number]) 1945 F Date Time Provider Department 11/23/24 ELZBIETA HERNANDEZ ENWSTR During your visit today, we recorded the following information about you: Karla Pineda, ELIE 11/23/2024 2:46 PM Signed Call placed to Pt's sister, Anny Espinosa. Notified her that the prior authorization for Prolia was approved by Pt's insurance, and she can schedule the nurse visit with Trinidad valenzuela RN at their convenience. Pt will be brought to the appt by Anny from [facility]; therefore, Anny wants to call back [...] by mouth once daily. - COMPOUNDED PRESCRIPTION Charlesessie Cloud[employer] defense 17 drops daily and working up to 60 drops daily (in divided doses). Serving size 30 drops. 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 Dx: Bilat sprained ankles, gait [...] NOS [K92.2] 03/08/2005 MYALGIA AND MYOSITIS NOS [[id number]] 09/02/2005 CONGENITAL PES PLANUS [Q66.50] 06/29/2007 Tibialis [...] of rig (more content not included)... Normal [facility] Serum or plasma alkaline nikole sphatase measurementOrdered By: Nikia Henderson on 11-22-2024 ALP [Catalytic activity/Vol] 73 U/L 35-104 [facility] 11-19-2024 [facility] Telephone (ENWSTR) LIZETTE DAVIES ([id number]) 1945 F Date Time Provider Department 11/19/24 ELZBIETA HERNANDEZ [facility] During your visit today, we recorded the following information about you: Karla Pineda RN 11/19/2024 10:25 AM Signed Prior authorization for Prolia [facility] to [facility] Cruz: [id number] Karla Pineda RN November 19, 2024 10:25 AM Tami Sun MA 11/19/2024 3:26 PM Signed Fax received Prolia approved pa# [id number] from 11/19/24-03/30/25. Placed in scanned docs. .me [...] mouth once daily. - COMPOUNDED PRESCRIPTION Viki Cloud[employer] defense 17 drops daily and working up to 60 drops daily (in divided doses). Serving size 30 drops. 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 Dx: Bilat sprained ankles, gait [...] NOS [K92.2] 03/08/2005 MYALGIA AND MYOSITIS NOS [[id number]] 09/02/2005 CONGENITAL PES PLANUS [Q66.50] 06/29/2007 Tibialis [...] [K80.10] 11/20 (more content not included)... Normal [facility] CNOVon 11-18-2024 CNOV Office Visit (ENWSTR ) LIZETTE DAVIES ([id number]) 1945 F Date Time Provider Department 11/18/24 3:00 PM ELZBIETA HERNANDEZ ENWSTR During your visit today, we recorded the following information about you: Temperature Pulse Respiration Weight 97.6 degrees 92/minute 20/minute 65.8 kg Elzbieta Hernandez MD 11/18/2024 6:10 PM Signed Endocrinology and Metabolism [place] Follow up note NAME: Lizette Davies is [...] (degenerative disc disease), cervical MRI scanned into [facility] January 11, 2014 ([facility]) DDD (degenerative disc disease), lumbosacral Essential [...] EGD ESOPHAGOGASTRODUODENO SCOPY TRANSORAL DIAGNOSTIC 02/16/15 EGD [facility] inpt ESOPHAGOGASTRODUODENO SCOPY TRANSORAL DIAGNOSTIC 05/11/15 EGD EXTRACTION, ERUPTED TOOTH OR EXPOSED ROOT (ELEVATION AND/OR FORCEPS REMOVAL) 1969's [place] teeth FOOT RIGHT OP SURGERY 01/2009 PAST [...] ptmd Ap (more content not included)... Normal [facility] Absolute lymphocyte countOrd ered By: Audra Drake on 11-02-2024 Lymphocytes Auto (Unsp spec) [#/Vol] 1.50 10*3/uL 0.83-4.51 [facility] Absolute neutrophil countOrd ered By: Audra Drake on 11-02-2024 Neutrophils (Bld) [#/Vol] 3.3 10*3/uL 2.0-7.7 [facility] Anion gap in Serum or Plasma Ordered By: Audra Drake on 11-02-2024 Anion gap [Moles/Vol] 10 mmol/L 5-15 [facility] Automated lymphocyte count a s percentage of total leukocytesOrdered By: Audra Drake on 11-02-2024 Lymphocytes/100 WBC Auto (Unsp spec) 26.9 % 19-41 [facility] BUN/creatinine ratioOrdered By: Audra Drake on 11-02-2024 Urea nitrogen/Creatinine [Mass ratio] 23.7 mg/mg High 10-20 [facility] Basophil percentageOrdered B y: Audra Drake on 11-02-2024 Basophils/100 WBC (Bld) 0.7 % 0-[address] [facility] Bilirubin directOrdered By: Audra Drake on 11-02-2024 Bilirubin.direct [Mass/Vol] 0.12 mg/dL 0.00-0.3 0 [facility] Bilirubin, totalOrdered By: Audra Drake on 11-02-2024 Bilirubin [Mass/Vol] 0.27 mg/dL 0.00-1.30 [facility] Calculated very low density lipoprotein (VLDL) cholesterol measurementOrdered By: Audra Drake on 11-02-2024 Calculated very low density lipoprotein (VLDL) cholesterol measurement 16 mg/dL 5-40 [facility] Carbon dioxide, total [Moles /volume] in Central venous bloodOrdered By: Audra Drake on 11-02-2024 CO2 [Moles/Vol] 25.8 mmol/L 21.0-32.0 [facility] Cardiology Visit Reporton Cardiology Visit Report Normal [facility] Chloride assayOrdered By: Dimitris Drake on 11-02-2024 Chloride [Moles/Vol] 107 mmol/L 98-108 [facility] Eosinophil percentageOrdered By: Audra Drake on 11-02-2024 Eosinophils/100 WBC (Bld) 3.9 % 0-5 [facility] Erythrocyte distribution wid th ratioOrdered By: Audra Drake on 11-02-2024 Erythrocyte distribution width (RBC) [Ratio] 12.7 % 11.6-14.6 [facility] Erythrocyte distribution wid th standard deviationOrdered By: Audra Drake on 11-02-2024 Erythrocyte distribution width (RBC) [Ratio] 47.3 fl High 35.1-43.9 [facility] Folate [Mass/volume] in Seru m or PlasmaOrdered By: Audra Drake on 11-02-2024 Folate [Mass/Vol] 10.00 ng/mL 4.60-34.80 [facility] Glomerular filtration rate ( GFR) estimation/1.73 sq m using serum, plasma, or whole bOrdered By: Audra Drake on 11-02-2024 GFR/1.73 sq M.predicted among non-blacks MDRD (S/P/Bld) [Vol rate/Area] 90 mL/min/{1.73_m2} >60 [facility] Comment on above: mL/min/1.73m2 CKD-EP I Creatinine Equation (2020) Hematocrit Auto (Bld) [Volum e fraction]Ordered By: Audra Drake on 11-02-2024 Hematocrit (Bld) [Volume fraction] 37.2 % 37-47 [facility] Hemoglobin measurementOrdere d By: Audra Drake on 11-02-2024 Hemoglobin (Bld) [Mass/Vol] 11.7 g/dL Low 12.0-15. 0 [facility] Immature granulocytes/100 WB C Auto (Bld)Ordered By: Audra Drake on 11-02-2024 Immature granulocytes/100 WBC (Bld) 0.200 % 0.0-0.9 [facility] Comment on above: IG% - Immature Granu locytes (promyelocytes, myelocytes and metamyelocytes) > 1% indicates that a LEFT SHIFT is Present. LDL calc ser/plasOrdered By: Audra Drake on 11-02-2024 Cholesterol in LDL [Mass/Vol] 105 mg/dL [facility] Comment on above: Pwgtdbggwo=031-343 m g/dL & Higher Ruzz=882 mg/dL or greaterFriedwald Equation for LDL-C Laboratory - Chemistry and C hemistry - challengeOrdered By: Audra Drake on 11-02-2024 AST [Catalytic activity/Vol] 18 U/L <32 [facility] MCV (mean corpuscular volume ) determinationOrdered By: Audra Drake on 11-02-2024 MCV (RBC) [Entitic vol] 101.1 fL High 81-[address] [facility] Magnesium measurement (mass/ volume)Ordered By: Audra Drake on 11-02-2024 Magnesium (Unsp spec) [Mass/Vol] 2.1 mg/dL 1.5-2.2 [facility] Mean corpuscular hemoglobin (MCH) determinationOrdered By: Audra Drake on 11-02-2024 MCH (RBC) [Entitic mass] 31.8 pg 27.0-32.0 [facility] Mean corpuscular hemoglobin concentration (MCHC) determinationOrdered By: Audra Drake on 11-02-2024 MCHC (RBC) [Mass/Vol] 31.5 g/dL Low 32-36 [facility] Mean platelet volume determi nationOrdered By: Audra Drake on 11-02-2024 Platelet mean volume (Bld) [Entitic vol] 10.0 fL 6.2-12.0 [facility] Monocyte percentageOrdered B y: Audra Drake on 11-02-2024 Monocytes/100 WBC (Bld) 9.1 % 0-[address] [facility] Neutrophil percentageOrdered By: Audra Drake on 11-02-2024 Neutrophils/100 WBC (Bld) 59.2 % 47-70 [facility] No Panel InformationOrdered By: Audra Drake on 11-02-2024 18 U/L <32 [facility] Nucleated red blood cell per centageOrdered By: Audra Drake on 11-02-2024 Nucleated RBC/100 WBC (Bld) [Ratio] 0 % 0-5 [facility] Platelet countOrdered By: Dimitris Drake on 11-02-2024 Platelets (Bld) [#/Vol] 209 10*3/uL 150-450 [facility] Potassium measurement (mass/ volume)Ordered By: Audra Drake on 11-02-2024 Potassium (Unsp spec) [Mass/Vol] 4.0 mmol/L 3.3-5.1 [facility] RBC Auto (Bld) [#/Vol]Ordere d By: Audra Drake on 11-02-2024 RBC (Bld) [#/Vol] 3.68 10*6/uL Low 4.2-5.4 [facility] Screening total cholesterol/ high density lipoprotein (HDL) cholesterol ratioOrdered By: Audra Drake on 11-02-2024 Cholesterol.total/Cholester ol in HDL [Mass ratio] 3.23 {ratio} [facility] Serum creatinine measurement (mass/volume)Ordered By: Audra Drake on 11-02-2024 Creatinine [Mass/Vol] 0.63 mg/dL Low 0.70-1.20 [facility] Serum globulin measurementOr dered By: Audar Drake on 11-02-2024 Globulin (S) [Mass/Vol] 2.6 g/dL 2.2-4.[address] [facility] Serum glucose measurement (m ass/volume)Ordered By: Audra Drake on 11-02-2024 Glucose [Mass/Vol] 79 mg/dL 70-99 [facility] Serum or plasma alanine kim otransferase (ALT) measurementOrdered By: Audra Drake on 11-02-2024 ALT [Catalytic activity/Vol] 10 U/L <35 [facility] Serum or plasma albumin gianluca urement (mass/volume)Ordered By: Audra Drake on 11-02-2024 Albumin [Mass/Vol] 3.6 g/dL 3.4-4.8 [facility] Serum or plasma alkaline nikole sphatase measurementOrdered By: Audra Drake on 11-02-2024 ALP [Catalytic activity/Vol] 75 U/L 35-104 [facility] Serum or plasma calcium gianluca urement (mass/volume)Ordered By: Audra Drake on 11-02-2024 Calcium [Mass/Vol] 9.1 mg/dL 7.6-11.0 [facility] Serum or plasma cholesterol in HDL measurement (mass/volume)Ordered By: Audra Drake on 11-02-2024 Cholesterol in HDL [Mass/Vol] 54 mg/dL >40 [facility] Comment on above: National Cholesterol Education Program (NCEP) guidelines:<40 mg/dL: Low HDL-cholesterol (major risk factor for CHD)>= 60 mg/dL: High HDL-cholesterol (negative risk factor for CHD)HDL-cholesterol is affected by a number of factors, e.g. smoking, exercise, hormones, sex and age. Serum or plasma cholesterol measurement (mass/volume)Ordered By: Audra Drake on 11-02-2024 Cholesterol [Mass/Vol] 175 mg/dL <201 [facility] Comment on above: Cholesterol level, D esirable <200 mg/dLBorderline high cholesterol 200-239 mg/dLHigh cholesterol >=240 mg/dLRecommendations of the NCEP Adult Treatment Panel for the following risk-cutoff thresholds for the [place] population. Serum or plasma urea nitroge n measurement (mass/volume)Ordered By: Audra Drake on 11-02-2024 Urea nitrogen [Mass/Vol] 15 mg/dL 4-19 [facility] Sodium levelOrdered By: Cony Drake on 11-02-2024 Sodium [Moles/Vol] 142 mmol/L 133-145 [facility] Total proteinOrdered By: Rubin Drake on 11-02-2024 Protein [Mass/Vol] 6.2 g/dL 5.9-8.4 [facility] Triglycerides measurementOrd ered By: Audra Drake on 11-02-2024 Triglyceride [Mass/Vol] 80 mg/dL <[address] [facility] Comment on above: The drugs N-Acetylcy steine and Metamizole may falsely depress this assay. Normal range: <150 mg/dLBorderline High: 150-199 mg/dLHigh: 200-499 mg/dLVery High: >500 mg/dL Vitamin B12 ser/plasOrdered By: Audra Drake on 11-02-2024 Cobalamin (Vitamin B12) [Mass/Vol] 585 pg/mL 180-914 [facility] White blood cell (WBC) count Ordered By: Audra Drake on 11-02-2024 WBC (Bld) [#/Vol] 5.6 10*3/uL 4.4-11.0 [facility] Absolute lymphocyte countOrd ered By: Nikia Henderson on 10-14-2024 Lymphocytes Auto (Unsp spec) [#/Vol] 1.49 10*3/uL 0.83-4.51 [facility] Absolute neutrophil countOrd ered By: Nikia Henderson on 10-14-2024 Neutrophils (Bld) [#/Vol] 3.1 10*3/uL 2.0-7.7 [facility] Anion gap in Serum or Plasma Ordered By: Nikia Henderson on 10-14-2024 Anion gap [Moles/Vol] 10 mmol/L 5-15 [facility] Automated lymphocyte count a s percentage of total leukocytesOrdered By: Nikia Henderson on 10-14-2024 Lymphocytes/100 WBC Auto (Unsp spec) 27.8 % 19-41 [facility] BUN/creatinine ratioOrdered By: Nikia Henderson on 10-14-2024 Urea nitrogen/Creatinine [Mass ratio] 20.9 mg/mg High 10-20 [facility] Basophil percentageOrdered B y: Nikia Henderson on 10-14-2024 Basophils/100 WBC (Bld) 0.9 % 0-1 [facility] Bilirubin, totalOrdered By: Nikia Henderson on 10-14-2024 Bilirubin [Mass/Vol] 0.22 mg/dL 0.00-1.30 [facility] Carbon dioxide, total [Moles /volume] in Central venous bloodOrdered By: Nikia Henderson on 10-14-2024 CO2 [Moles/Vol] 25.5 mmol/L 21.0-32.0 [facility] Chloride assayOrdered By: Cecilia Henderson on 10-14-2024 Chloride [Moles/Vol] 106 mmol/L 98-108 [facility] Eosinophil percentageOrdered By: Nikia Henderson on 10-14-2024 Eosinophils/100 WBC (Bld) 3.7 % 0-5 [facility] Erythrocyte distribution wid th ratioOrdered By: Nikia Henderson on 10-14-2024 Erythrocyte distribution width (RBC) [Ratio] 12.8 % 11.6-14.6 [facility] Erythrocyte distribution wid th standard deviationOrdered By: Nikia Henderson on 10-14-2024 Erythrocyte distribution width (RBC) [Ratio] 45.7 fl High 35.1-43.9 [facility] Glomerular filtration rate ( GFR) estimation/1.73 sq m using serum, plasma, or whole bOrdered By: Nikia Henderson on 10-14-2024 GFR/1.73 sq M.predicted among non-blacks MDRD (S/P/Bld) [Vol rate/Area] 87 mL/min/{1.73_m2} >60 [facility] Comment on above: mL/min/1.73m2 CKD-EP I Creatinine Equation (2020) Hematocrit Auto (Bld) [Volum e fraction]Ordered By: [facility] on 10-14-2024 Hematocrit (Bld) [Volume fraction] 34.6 % Low 37-47 [facility] Hemoglobin measurementOrdere d By: Nikia Henderson 10-14-2024 Hemoglobin (Bld) [Mass/Vol] 11.3 g/dL Low 12.0-15. 0 [facility] Immature granulocytes/100 WB C Auto (Bld)Ordered By: Nikia Henderson on 10-14-2024 Immature granulocytes/100 WBC (Bld) 0.400 % 0.0-0.9 [facility] Comment on above: IG% - Immature Granu locytes (promyelocytes, myelocytes and metamyelocytes) > 1% indicates that a LEFT SHIFT is Present. Laboratory - Chemistry and C hemistry - challengeOrdered By: Nikia Henderson on 10-14-2024 AST [Catalytic activity/Vol] 16 U/L <32 [facility] MCV (mean corpuscular volume ) determinationOrdered By: Nikia Henderson on 10-14-2024 MCV (RBC) [Entitic vol] 98.6 fL 81-[address] [facility] Mean corpuscular hemoglobin (MCH) determinationOrdered By: laura Henderson 10-14-2024 MCH (RBC) [Entitic mass] 32.2 pg High 27.0-32.0 [facility] Mean corpuscular hemoglobin concentration (MCHC) determinationOrdered By: Nikia Henderson on 10-14-2024 MCHC (RBC) [Mass/Vol] 32.7 g/dL 32-36 [facility] Mean platelet volume determi nationOrdered By: Nikia Henderson on 10-14-2024 Platelet mean volume (Bld) [Entitic vol] 10.0 fL 6.2-12.0 [facility] Monocyte percentageOrdered B y: Nikia Henderson on 10-14-2024 Monocytes/100 WBC (Bld) 9.9 % 0-[address] [facility] Natriuretic peptide.B prohor rosie N-Terminal [Mass/volume] in Serum or PlasmaOrdered By: Nikia Henderson on 10-14-2024 Natriuretic peptide.B prohormone N-Terminal [Mass/Vol] 371 pg/mL <1800 [facility] Comment on above: Heart Failure Unlike ly: < 300 pg/mLHeart Failure Likely< 50 Years: > 450 pg/mL50-75 Years: > 900 pg/mL>75 Years: > 1800 pg/mL Neutrophil percentageOrdered By: Nikia Henderson on 10-14-2024 Neutrophils/100 WBC (Bld) 57.3 % 47-70 [facility] No Panel InformationOrdered By: Nikia Henderson on 10-14-2024 16 U/L <32 [facility] Nucleated red blood cell per centageOrdered By: Nikia Henderson on 10-14-2024 Nucleated RBC/100 WBC (Bld) [Ratio] 0 % 0-5 [facility] Platelet countOrdered By: Cecilia Henderson on 10-14-2024 Platelets (Bld) [#/Vol] 223 10*3/uL 150-450 [facility] Potassium measurement (mass/ volume)Ordered By: Nikia Henderson on 10-14-2024 Potassium (Unsp spec) [Mass/Vol] 4.2 mmol/L 3.3-5.1 [facility] RBC Auto (Bld) [#/Vol]Ordere d By: Nikia Henderson on 10-14-2024 RBC (Bld) [#/Vol] 3.51 10*6/uL Low 4.2-5.4 [facility] Serum creatinine measurement (mass/volume)Ordered By: Nikia Henderson on 10-14-2024 Creatinine [Mass/Vol] 0.71 mg/dL 0.70-1.20 [facility] Serum globulin measurementOr dered By: Nikia Henderson on 10-14-2024 Globulin (S) [Mass/Vol] 2.6 g/dL 2.2-4.[address] [facility] Serum glucose measurement (m ass/volume)Ordered By: Nikia Henderson on 10-14-2024 Glucose [Mass/Vol] 85 mg/dL 70-99 [facility] Serum or plasma alanine kim otransferase (ALT) measurementOrdered By: Nikia Henderson on 10-14-2024 ALT [Catalytic activity/Vol] 11 U/L <35 [facility] Serum or plasma albumin gianluca urement (mass/volume)Ordered By: Nikia Henderson on 10-14-2024 Albumin [Mass/Vol] 3.4 g/dL 3.4-4.8 [facility] Serum or plasma albumin/glob ulin mass ratioOrdered By: Nikia Henderson 10-14-2024 Albumin/Globulin [Mass ratio] 1.3 {ratio} 0.9-2.4 [facility] Serum or plasma alkaline nikole sphatase measurementOrdered By: Nikia Henderson 10-14-2024 ALP [Catalytic activity/Vol] 79 U/L 35-104 [facility] Serum or plasma calcium gianluca urement (mass/volume)Ordered By: Nikia Henderson 10-14-2024 Calcium [Mass/Vol] 9.0 mg/dL 7.6-11.0 [facility] Serum or plasma urea nitroge n measurement (mass/volume)Ordered By: Nikia Henderson 10-14-2024 Urea nitrogen [Mass/Vol] 15 mg/dL 4-19 [facility] Sodium levelOrdered By: Catalina Henderson on 10-14-2024 Sodium [Moles/Vol] 141 mmol/L 133-145 [facility] Total proteinOrdered By: Marcelo Henderson on 10-14-2024 Protein [Mass/Vol] 6.0 g/dL 5.9-8.4 [facility] White blood cell (WBC) count Ordered By: Nikia Henderson on 10-14-2024 WBC (Bld) [#/Vol] 5.4 10*3/uL 4.4-11.0 [facility] Absolute lymphocyte countOrd ered By: Audra Drake on 09-28-2024 Lymphocytes Auto (Unsp spec) [#/Vol] 1.50 10*3/uL 0.83-4.51 [facility] Absolute neutrophil countOrd ered By: Audra Drake on 09-28-2024 Neutrophils (Bld) [#/Vol] 3.0 10*3/uL 2.0-7.7 [facility] Anion gap in Serum or Plasma Ordered By: Audra Drake on 09-28-2024 Anion gap [Moles/Vol] 10 mmol/L 5-15 [facility] Automated lymphocyte count a s percentage of total leukocytesOrdered By: Audra Drake on 09-28-2024 Lymphocytes/100 WBC Auto (Unsp spec) 28.4 % 19-41 [facility] BUN/creatinine ratioOrdered By: Audra Drake on 09-28-2024 Urea nitrogen/Creatinine [Mass ratio] 21.1 mg/mg High 10-20 [facility] Basophil percentageOrdered B y: Audra Drake on 09-28-2024 Basophils/100 WBC (Bld) 0.8 % 0-[address] [facility] Carbon dioxide, total [Moles /volume] in Central venous bloodOrdered By: Audra Drake on 09-28-2024 CO2 [Moles/Vol] 25.6 mmol/L 21.0-32.0 [facility] Chloride assayOrdered By: Dimitris Drake on 09-28-2024 Chloride [Moles/Vol] 107 mmol/L 98-108 [facility] Eosinophil percentageOrdered By: Audra Drake on 09-28-2024 Eosinophils/100 WBC (Bld) 3.8 % 0-5 [facility] Erythrocyte distribution wid th ratioOrdered By: Audra Drake on 09-28-2024 Erythrocyte distribution width (RBC) [Ratio] 12.9 % 11.6-14.6 [facility] Erythrocyte distribution wid th standard deviationOrdered By: Audra Drake on 09-28-2024 Erythrocyte distribution width (RBC) [Ratio] 48.7 fl High 35.1-43.9 [facility] Glomerular filtration rate ( GFR) estimation/1.73 sq m using serum, plasma, or whole bOrdered By: Audra Drake on 09-28-2024 GFR/1.73 sq M.predicted among non-blacks MDRD (S/P/Bld) [Vol rate/Area] 91 mL/min/{1.73_m2} >60 [facility] Comment on above: mL/min/1.73m2 CKD-EP I Creatinine Equation (2020) Hematocrit Auto (Bld) [Volum e fraction]Ordered By: Audra Drake on 09-28-2024 Hematocrit (Bld) [Volume fraction] 37.5 % 37-47 [facility] Hemoglobin measurementOrdere d By: Audra Drake on 09-28-2024 Hemoglobin (Bld) [Mass/Vol] 11.9 g/dL Low 12.0-15. 0 [facility] Immature granulocytes/100 WB C Auto (Bld)Ordered By: Audra Drake on 09-28-2024 Immature granulocytes/100 WBC (Bld) 0.400 % 0.0-0.9 [facility] Comment on above: IG% - Immature Granu locytes (promyelocytes, myelocytes and metamyelocytes) > 1% indicates that a LEFT SHIFT is Present. MCV (mean corpuscular volume ) determinationOrdered By: Audra Drake on 09-28-2024 MCV (RBC) [Entitic vol] 102.5 fL High 81-[address] [facility] Mean corpuscular hemoglobin (MCH) determinationOrdered By: Audra Drake on 09-28-2024 MCH (RBC) [Entitic mass] 32.5 pg High 27.0-32.0 [facility] Mean corpuscular hemoglobin concentration (MCHC) determinationOrdered By: Audra Drake on 09-28-2024 MCHC (RBC) [Mass/Vol] 31.7 g/dL Low 32-36 [facility] Mean platelet volume determi nationOrdered By: Audra Drake on 09-28-2024 Platelet mean volume (Bld) [Entitic vol] 10.0 fL 6.2-12.0 [facility] Monocyte percentageOrdered B y: Audra Drake on 09-28-2024 Monocytes/100 WBC (Bld) 9.8 % 0-[address] [facility] Neutrophil percentageOrdered By: Audra Drake on 09-28-2024 Neutrophils/100 WBC (Bld) 56.8 % 47-70 [facility] Nucleated red blood cell per centageOrdered By: Audra Drake on 09-28-2024 Nucleated RBC/100 WBC (Bld) [Ratio] 0 % 0-5 [facility] Platelet countOrdered By: Dimitris Drake on 09-28-2024 Platelets (Bld) [#/Vol] 209 10*3/uL 150-450 [facility] Potassium measurement (mass/ volume)Ordered By: Audra Drake on 09-28-2024 Potassium (Unsp spec) [Mass/Vol] 4.0 mmol/L 3.3-5.1 [facility] RBC Auto (Bld) [#/Vol]Ordere d By: Audra Drake on 09-28-2024 RBC (Bld) [#/Vol] 3.66 10*6/uL Low 4.2-5.4 [facility] Serum creatinine measurement (mass/volume)Ordered By: Audra Drake on 09-28-2024 Creatinine [Mass/Vol] 0.61 mg/dL Low 0.70-1.20 [facility] Serum glucose measurement (m ass/volume)Ordered By: Audra Drake on 09-28-2024 Glucose [Mass/Vol] 84 mg/dL 70-99 [facility] Serum or plasma calcium gianluca urement (mass/volume)Ordered By: Audra Drake on 09-28-2024 Calcium [Mass/Vol] 9.1 mg/dL 7.6-11.0 [facility] Serum or plasma urea nitroge n measurement (mass/volume)Ordered By: Audra Drake on 09-28-2024 Urea nitrogen [Mass/Vol] 13 mg/dL 4-19 [facility] Sodium levelOrdered By: Cony Drake on 09-28-2024 Sodium [Moles/Vol] 142 mmol/L 133-145 [facility] White blood cell (WBC) count Ordered By: Audra Drake on 09-28-2024 WBC (Bld) [#/Vol] 5.3 10*3/uL 4.4-11.0 [facility] Absolute lymphocyte countOrd ered By: Nikia Henderson on 09-21-2024 Lymphocytes Auto (Unsp spec) [#/Vol] 1.50 10*3/uL 0.83-4.51 [facility] Absolute neutrophil countOrd ered By: Nikia Henderson on 09-21-2024 Neutrophils (Bld) [#/Vol] 3.1 10*3/uL 2.0-7.7 [facility] Anion gap in Serum or Plasma Ordered By: Nikia Henderson on 09-21-2024 Anion gap [Moles/Vol] 9 mmol/L 5-15 [facility] Automated lymphocyte count a s percentage of total leukocytesOrdered By: Nikia Henderson on 09-21-2024 Lymphocytes/100 WBC Auto (Unsp spec) 28.4 % 19-41 [facility] BUN/creatinine ratioOrdered By: Nikia Henderson on 09-21-2024 Urea nitrogen/Creatinine [Mass ratio] 19.5 mg/mg 10-20 [facility] Basophil percentageOrdered B y: Nikia Henderson on 09-21-2024 Basophils/100 WBC (Bld) 0.8 % 0-[address] [facility] Carbon dioxide, total [Moles /volume] in Central venous bloodOrdered By: Nikia Henderson on 09-21-2024 CO2 [Moles/Vol] 27.0 mmol/L 21.0-32.0 [facility] Chloride assayOrdered By: Cecilia Henderson on 09-21-2024 Chloride [Moles/Vol] 106 mmol/L 98-108 [facility] Eosinophil percentageOrdered By: Nikia Henderson on 09-21-2024 Eosinophils/100 WBC (Bld) 3.2 % 0-5 [facility] Erythrocyte distribution wid th ratioOrdered By: Nikia Henderson on 09-21-2024 Erythrocyte distribution width (RBC) [Ratio] 12.8 % 11.6-14.6 [facility] Erythrocyte distribution wid th standard deviationOrdered By: Nikia Henderson on 09-21-2024 Erythrocyte distribution width (RBC) [Ratio] 47.9 fl High 35.1-43.9 [facility] Glomerular filtration rate ( GFR) estimation/1.73 sq m using serum, plasma, or whole bOrdered By: Nikia Henderson on 09-21-2024 GFR/1.73 sq M.predicted among non-blacks MDRD (S/P/Bld) [Vol rate/Area] 91 mL/min/{1.73_m2} >60 [facility] Comment on above: mL/min/1.73m2 CKD-EP I Creatinine Equation (2020) Hematocrit Auto (Bld) [Volum e fraction]Ordered By: Nikia Henderson on 09-21-2024 Hematocrit (Bld) [Volume fraction] 35.6 % Low 37-47 [facility] Hemoglobin measurementOrdere d By: Nikia Henderson on 09-21-2024 Hemoglobin (Bld) [Mass/Vol] 11.5 g/dL Low 12.0-15. 0 [facility] Immature granulocytes/100 WB C Auto (Bld)Ordered By: Nikia Henderson on 09-21-2024 Immature granulocytes/100 WBC (Bld) 0.400 % 0.0-0.9 [facility] Comment on above: IG% - Immature Granu locytes (promyelocytes, myelocytes and metamyelocytes) > 1% indicates that a LEFT SHIFT is Present. MCV (mean corpuscular volume ) determinationOrdered By: Nikia Henderson on 09-21-2024 MCV (RBC) [Entitic vol] 102.0 fL High 81-[address] [facility] Mean corpuscular hemoglobin (MCH) determinationOrdered By: Nikia Henderson 09-21-2024 MCH (RBC) [Entitic mass] 33.0 pg High 27.0-32.0 [facility] Mean corpuscular hemoglobin concentration (MCHC) determinationOrdered By: Nikia Henderson on 09-21-2024 MCHC (RBC) [Mass/Vol] 32.3 g/dL 32-36 [facility] Mean platelet volume determi nationOrdered By: Nikia Henderson on 09-21-2024 Platelet mean volume (Bld) [Entitic vol] 9.9 fL 6.2-12.0 [facility] Monocyte percentageOrdered B y: Nikia Henderson on 09-21-2024 Monocytes/100 WBC (Bld) 9.1 % 0-[address] [facility] Neutrophil percentageOrdered By: Nikia Henderson on 09-21-2024 Neutrophils/100 WBC (Bld) 58.1 % 47-70 [facility] Nucleated red blood cell per centageOrdered By: Nikia Henderson on 09-21-2024 Nucleated RBC/100 WBC (Bld) [Ratio] 0 % 0-5 [facility] Platelet countOrdered By: Cecilia Henderson on 09-21-2024 Platelets (Bld) [#/Vol] 233 10*3/uL 150-450 [facility] Potassium measurement (mass/ volume)Ordered By: Nikia Henderson on 09-21-2024 Potassium (Unsp spec) [Mass/Vol] 3.9 mmol/L 3.3-5.1 [facility] RBC Auto (Bld) [#/Vol]Ordere d By: Nikia Henderson on 09-21-2024 RBC (Bld) [#/Vol] 3.49 10*6/uL Low 4.2-5.4 [facility] Serum creatinine measurement (mass/volume)Ordered By: Nikia Henderson on 09-21-2024 Creatinine [Mass/Vol] 0.62 mg/dL Low 0.70-1.20 [facility] Serum glucose measurement (m ass/volume)Ordered By: Nikia Henderson on 09-21-2024 Glucose [Mass/Vol] 87 mg/dL 70-99 [facility] Serum or plasma calcium gianluca urement (mass/volume)Ordered By: Nikia Henderson on 09-21-2024 Calcium [Mass/Vol] 9.2 mg/dL 7.6-11.0 [facility] Serum or plasma urea nitroge n measurement (mass/volume)Ordered By: Nikia Henderson on 09-21-2024 Urea nitrogen [Mass/Vol] 12 mg/dL 4-19 [facility] Sodium levelOrdered By: Catalina terra Beatriz on 09-21-2024 Sodium [Moles/Vol] 142 mmol/L 133-145 [facility] White blood cell (WBC) count Ordered By: Nikia Henderson on 09-21-2024 WBC (Bld) [#/Vol] 5.3 10*3/uL 4.4-11.0 [facility] Absolute lymphocyte countOrd ered By: Nikia Henderson on 09-14-2024 Lymphocytes Auto (Unsp spec) [#/Vol] 1.52 10*3/uL 0.83-4.51 [facility] Absolute neutrophil countOrd ered By: Nikia Henderson on 09-14-2024 Neutrophils (Bld) [#/Vol] 3.1 10*3/uL 2.0-7.7 [facility] Anion gap in Serum or Plasma Ordered By: Nikia Henderson on 09-14-2024 Anion gap [Moles/Vol] 10 mmol/L 5-15 [facility] Automated lymphocyte count a s percentage of total leukocytesOrdered By: Nikia Henderson on 09-14-2024 Lymphocytes/100 WBC Auto (Unsp spec) 28.4 % 19-41 [facility] BUN/creatinine ratioOrdered By: Nikia Henderson on 09-14-2024 Urea nitrogen/Creatinine [Mass ratio] 20.5 mg/mg High 10-20 [facility] Basophil percentageOrdered B y: Nikia Henderson on 09-14-2024 Basophils/100 WBC (Bld) 0.9 % 0-[address] [facility] Carbon dioxide, total [Moles /volume] in Central venous bloodOrdered By: Nikia Henderson on 09-14-2024 CO2 [Moles/Vol] 24.5 mmol/L 21.0-32.0 [facility] Chloride assayOrdered By: Cecilia Henderson on 09-14-2024 Chloride [Moles/Vol] 106 mmol/L 98-108 [facility] Eosinophil percentageOrdered By: Nikia Henderson 09-14-2024 Eosinophils/100 WBC (Bld) 3.9 % 0-5 [facility] Erythrocyte distribution wid th ratioOrdered By: laura Henderson on 09-14-2024 Erythrocyte distribution width (RBC) [Ratio] 13.1 % 11.6-14.6 [facility] Erythrocyte distribution wid th standard deviationOrdered By: Catalinahartwickheladio Henderson on 09-14-2024 Erythrocyte distribution width (RBC) [Ratio] 49.0 fl High 35.1-43.9 [facility] Glomerular filtration rate ( GFR) estimation/1.73 sq m using serum, plasma, or whole bOrdered By: Nikia Henderson on 09-14-2024 GFR/1.73 sq M.predicted among non-blacks MDRD (S/P/Bld) [Vol rate/Area] 92 mL/min/{1.73_m2} >60 [facility] Comment on above: mL/min/1.73m2 CKD-EP I Creatinine Equation (2020) Hematocrit Auto (Bld) [Volum e fraction]Ordered By: Nikia Henderson 09-14-2024 Hematocrit (Bld) [Volume fraction] 34.7 % Low 37-47 [facility] Hemoglobin measurementOrdere d By: Nikia Henderson on 09-14-2024 Hemoglobin (Bld) [Mass/Vol] 11.3 g/dL Low 12.0-15. 0 [facility] Immature granulocytes/100 WB C Auto (Bld)Ordered By: Nikia Henderson on 09-14-2024 Immature granulocytes/100 WBC (Bld) 0.200 % 0.0-0.9 [facility] Comment on above: IG% - Immature Granu locytes (promyelocytes, myelocytes and metamyelocytes) > 1% indicates that a LEFT SHIFT is Present. MCV (mean corpuscular volume ) determinationOrdered By: Nikia Henderson on 09-14-2024 MCV (RBC) [Entitic vol] 101.8 fL High 81-[address] [facility] Mean corpuscular hemoglobin (MCH) determinationOrdered By: Nikia Henderson on 09-14-2024 MCH (RBC) [Entitic mass] 33.1 pg High 27.0-32.0 [facility] Mean corpuscular hemoglobin concentration (MCHC) determinationOrdered By: Nikia Henderson on 09-14-2024 MCHC (RBC) [Mass/Vol] 32.6 g/dL 32-36 [facility] Mean platelet volume determi nationOrdered By: Nikia Henderson on 09-14-2024 Platelet mean volume (Bld) [Entitic vol] 9.7 fL 6.2-12.0 [facility] Monocyte percentageOrdered B y: Nikia Henderson on 09-14-2024 Monocytes/100 WBC (Bld) 9.7 % 0-[address] [facility] Neutrophil percentageOrdered By: Nikia Henderson on 09-14-2024 Neutrophils/100 WBC (Bld) 56.9 % 47-70 [facility] Nucleated red blood cell per centageOrdered By: Nikia Henderson on 09-14-2024 Nucleated RBC/100 WBC (Bld) [Ratio] 0 % 0-5 [facility] Platelet countOrdered By: Cecilia Henderson on 09-14-2024 Platelets (Bld) [#/Vol] 216 10*3/uL 150-450 [facility] Potassium measurement (mass/ volume)Ordered By: Nikia Henderson on 09-14-2024 Potassium (Unsp spec) [Mass/Vol] 4.0 mmol/L 3.3-5.1 [facility] RBC Auto (Bld) [#/Vol]Ordere d By: Nikia Henderson on 09-14-2024 RBC (Bld) [#/Vol] 3.41 10*6/uL Low 4.2-5.4 [facility] Serum creatinine measurement (mass/volume)Ordered By: Nikia Henderson on 09-14-2024 Creatinine [Mass/Vol] 0.60 mg/dL Low 0.70-1.20 [facility] Serum glucose measurement (m ass/volume)Ordered By: Nikia Henderson on 09-14-2024 Glucose [Mass/Vol] 77 mg/dL 70-99 [facility] Serum or plasma calcium gianluca urement (mass/volume)Ordered By: Nikia Henderson on 09-14-2024 Calcium [Mass/Vol] 9.0 mg/dL 7.6-11.0 [facility] Serum or plasma urea nitroge n measurement (mass/volume)Ordered By: Nikia Henderson on 09-14-2024 Urea nitrogen [Mass/Vol] 12 mg/dL 4-19 [facility] Sodium levelOrdered By: Catalina connerling Beatriz on 09-14-2024 Sodium [Moles/Vol] 140 mmol/L 133-145 [facility] White blood cell (WBC) count Ordered By: Nikia Henderson on 09-14-2024 WBC (Bld) [#/Vol] 5.4 10*3/uL 4.4-11.0 [facility] Absolute lymphocyte countOrd ered By: Nikia Henderson on 09-07-2024 Lymphocytes Auto (Unsp spec) [#/Vol] 1.52 10*3/uL 0.83-4.51 [facility] Absolute neutrophil countOrd ered By: Nikia Henderson on 09-07-2024 Neutrophils (Bld) [#/Vol] 3.1 10*3/uL 2.0-7.7 [facility] Anion gap in Serum or Plasma Ordered By: Nikia Jainjanicevioletta on 09-07-2024 Anion gap [Moles/Vol] 9 mmol/L 5-15 [facility] Automated lymphocyte count a s percentage of total leukocytesOrdered By: Nikia Henderson on 09-07-2024 Lymphocytes/100 WBC Auto (Unsp spec) 28.4 % 19-41 [facility] BUN/creatinine ratioOrdered By: Nikia Jainjanicevioletta on 09-07-2024 Urea nitrogen/Creatinine [Mass ratio] 23.0 mg/mg High 10 [facility] Basophil percentageOrdered B y: Nikia Henderson on 09-07-2024 Basophils/100 WBC (Bld) 0.9 % 0-[address] [facility] CNPNon 09-07-2024 CNPN Telephone (ENDOMN) LIZETTE DAVIES ([id number]) 1945 F Date Time Provider Department 09/07/24 [...] by mouth once daily. - COMPOUNDED PRESCRIPTION PROTEGOgabiClarity 17 drops daily and working up to 60 drops daily (in divided doses). Serving size 30 drops. 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 Dx: Bilat sprained ankles, gait [...] NOS [K92.2] 03/08/2005 MYALGIA AND MYOSITIS NOS [[id number]] 09/02/2005 CONGENITAL PES PLANUS [Q66.50] 06/29/2007 Tibialis [...] Disp Refills (more content not included)... Normal [facility] Carbon dioxide, total [Moles /volume] in Central venous bloodOrdered By: Nikia Henderson on 09-07-2024 CO2 [Moles/Vol] 25.2 mmol/L 21.0-32.0 [facility] Chloride assayOrdered By: Cecilia Henderson on 09-07-2024 Chloride [Moles/Vol] 108 mmol/L 98-108 [facility] Eosinophil percentageOrdered By: Nikia Henderson on 09-07-2024 Eosinophils/100 WBC (Bld) 2.8 % 0-5 [facility] Erythrocyte distribution wid th ratioOrdered By: guanakohartwickheladio Henderson on 09-07-2024 Erythrocyte distribution width (RBC) [Ratio] 13.0 % 11.6-14.6 [facility] Erythrocyte distribution wid th standard deviationOrdered By: Nikia Henderson on 09-07-2024 Erythrocyte distribution width (RBC) [Ratio] 48.7 fl High 35.1-43.9 [facility] Glomerular filtration rate ( GFR) estimation/1.73 sq m using serum, plasma, or whole bOrdered By: Nikia Henderson on 09-07-2024 GFR/1.73 sq M.predicted among non-blacks MDRD (S/P/Bld) [Vol rate/Area] 87 mL/min/{1.73_m2} >60 [facility] Comment on above: mL/min/1.73m2 CKD-EP I Creatinine Equation (2020) Hematocrit Auto (Bld) [Volum e fraction]Ordered By: Nikia Henderson on 09-07-2024 Hematocrit (Bld) [Volume fraction] 34.3 % Low 37-47 [facility] Hemoglobin measurementOrdere d By: Nikia Henderson on 09-07-2024 Hemoglobin (Bld) [Mass/Vol] 11.1 g/dL Low 12.0-15. 0 [facility] Immature granulocytes/100 WB C Auto (Bld)Ordered By: Nikia Henderson on 09-07-2024 Immature granulocytes/100 WBC (Bld) 0.200 % 0.0-0.9 [facility] Comment on above: IG% - Immature Granu locytes (promyelocytes, myelocytes and metamyelocytes) > 1% indicates that a LEFT SHIFT is Present. MCV (mean corpuscular volume ) determinationOrdered By: Nikia Henderson on 09-07-2024 MCV (RBC) [Entitic vol] 101.2 fL High 81-[address] [facility] Mean corpuscular hemoglobin (MCH) determinationOrdered By: guanakohartwickheladio Henderson on 09-07-2024 MCH (RBC) [Entitic mass] 32.7 pg High 27.0-32.0 [facility] Mean corpuscular hemoglobin concentration (MCHC) determinationOrdered By: guanakohartwickheladio Henderson on 09-07-2024 MCHC (RBC) [Mass/Vol] 32.4 g/dL 32-36 [facility] Mean platelet volume determi nationOrdered By: Nikia Henderson on 09-07-2024 Platelet mean volume (Bld) [Entitic vol] 9.8 fL 6.2-12.0 [facility] Monocyte percentageOrdered B y: Nikia Henderson on 09-07-2024 Monocytes/100 WBC (Bld) 10.4 % High 0-[address] [facility] Neutrophil percentageOrdered By: Nikia Henderson on 09-07-2024 Neutrophils/100 WBC (Bld) 57.3 % 47-70 [facility] Nucleated red blood cell per centageOrdered By: Nikia Henderson on 09-07-2024 Nucleated RBC/100 WBC (Bld) [Ratio] 0 % 0-5 [facility] Platelet countOrdered By: Cecilia guanakoterra Henderson on 09-07-2024 Platelets (Bld) [#/Vol] 203 10*3/uL 150-450 [facility] Potassium measurement (mass/ volume)Ordered By: Nikia Henderson on 09-07-2024 Potassium (Unsp spec) [Mass/Vol] 4.1 mmol/L 3.3-5.1 [facility] RBC Auto (Bld) [#/Vol]Ordere d By: Catalinafedeheladio Henderson on 09-07-2024 RBC (Bld) [#/Vol] 3.39 10*6/uL Low 4.2-5.4 [facility] Serum creatinine measurement (mass/volume)Ordered By: Nikia Henderson on 09-07-2024 Creatinine [Mass/Vol] 0.71 mg/dL 0.70-1.20 [facility] Serum glucose measurement (m ass/volume)Ordered By: Nikia Henderson on 09-07-2024 Glucose [Mass/Vol] 87 mg/dL 70-99 [facility] Serum or plasma calcium gianluca urement (mass/volume)Ordered By: Nikia Henderson on 09-07-2024 Calcium [Mass/Vol] 8.9 mg/dL 7.6-11.0 [facility] Serum or plasma urea nitroge n measurement (mass/volume)Ordered By: Nikia Henderson on 09-07-2024 Urea nitrogen [Mass/Vol] 16 mg/dL 4-19 [facility] Sodium levelOrdered By: Catalina connerling Beatriz on 09-07-2024 Sodium [Moles/Vol] 142 mmol/L 133-145 [facility] White blood cell (WBC) count Ordered By: Nikia Henderson on 09-07-2024 WBC (Bld) [#/Vol] 5.4 10*3/uL 4.4-11.0 [facility] Absolute lymphocyte countOrd ered By: Audra Drake on 08-31-2024 Lymphocytes Auto (Unsp spec) [#/Vol] 1.73 10*3/uL 0.83-4.51 [facility] Anion gap in Serum or Plasma Ordered By: Audra Drake on 08-31-2024 Anion gap [Moles/Vol] 10 mmol/L 5-15 [facility] Automated lymphocyte count a s percentage of total leukocytesOrdered By: Audra Drake on 08-31-2024 Lymphocytes/100 WBC Auto (Unsp spec) 27.5 % 19-41 [facility] BUN/creatinine ratioOrdered By: Audra Drake on 08-31-2024 Urea nitrogen/Creatinine [Mass ratio] 20.3 mg/mg High 10-20 [facility] Basophil percentageOrdered B y: Audra Drake on 08-31-2024 Basophils/100 WBC (Bld) 0.6 % 0-[address] [facility] Carbon dioxide, total [Moles /volume] in Central venous bloodOrdered By: Audra Drake on 08-31-2024 CO2 [Moles/Vol] 24.3 mmol/L 21.0-32.0 [facility] Chloride assayOrdered By: Dimitris Drake on 08-31-2024 Chloride [Moles/Vol] 106 mmol/L 98-108 [facility] [facility] Eosinophil percentageOrdered By: Audra Drake on 08-31-2024 Eosinophils/100 WBC (Bld) 2.4 % 0-5 [facility] Erythrocyte distribution wid th ratioOrdered By: Audra Drake on 08-31-2024 Erythrocyte distribution width (RBC) [Ratio] 13.3 % 11.6-14.6 [facility] Erythrocyte distribution wid th standard deviationOrdered By: Audra Drake on 08-31-2024 Erythrocyte distribution width (RBC) [Ratio] 50.0 fl High 35.1-43.9 [facility] Glomerular filtration rate ( GFR) estimation/1.73 sq m using serum, plasma, or whole bOrdered By: Audra Drake on 08-31-2024 GFR/1.73 sq M.predicted among non-blacks MDRD (S/P/Bld) [Vol rate/Area] 91 mL/min/{1.73_m2} >60 [facility] Hematocrit Auto (Bld) [Volum e fraction]Ordered By: Audra Draek on 08-31-2024 Hematocrit (Bld) [Volume fraction] 34.9 % Low 37-47 [facility] Hemoglobin measurementOrdere d By: Audra Drake on 08-31-2024 Hemoglobin (Bld) [Mass/Vol] 11.0 g/dL Low 12.0-15. 0 [facility] Immature granulocytes/100 WB C Auto (Bld)Ordered By: Audra Drake on 08-31-2024 Immature granulocytes/100 WBC (Bld) 0.500 % 0.0-0.9 [facility] MCV (mean corpuscular volume ) determinationOrdered By: Audra Drake on 08-31-2024 MCV (RBC) [Entitic vol] 101.7 fL High 81-[address] [facility] Mean corpuscular hemoglobin (MCH) determinationOrdered By: Audra Drake on 08-31-2024 MCH (RBC) [Entitic mass] 32.1 pg High 27.0-32.0 [facility] Monocyte percentageOrdered B y: Audra Drake on 08-31-2024 Monocytes/100 WBC (Bld) 9.4 % 0-[address] [facility] Neutrophil percentageOrdered By: Audra Drake on 08-31-2024 Neutrophils/100 WBC (Bld) 59.6 % 47-70 [facility] Platelet countOrdered By: Dimitris Drake on 08-31-2024 Platelets (Bld) [#/Vol] 208 10*3/uL 150-450 [facility] Potassium measurement (mass/ volume)Ordered By: Audra Drake on 08-31-2024 Potassium (Unsp spec) [Mass/Vol] 4.2 mmol/L 3.3-5.1 [facility] RBC Auto (Bld) [#/Vol]Ordere d By: Audra Drake on 08-31-2024 RBC (Bld) [#/Vol] 3.43 10*6/uL Low 4.2-5.4 [facility] Serum creatinine measurement (mass/volume)Ordered By: Audra Drake on 08-31-2024 Creatinine [Mass/Vol] 0.63 mg/dL Low 0.70-1.20 [facility] Serum glucose measurement (m ass/volume)Ordered By: Audra Drake on 08-31-2024 Glucose [Mass/Vol] 81 mg/dL 70-99 [facility] Serum or plasma calcium gianluca urement (mass/volume)Ordered By: Audra Drake on 08-31-2024 Calcium [Mass/Vol] 8.8 mg/dL 7.6-11.0 [facility] Serum or plasma urea nitroge n measurement (mass/volume)Ordered By: Audra Drake on 08-31-2024 Urea nitrogen [Mass/Vol] 13 mg/dL 4-19 [facility] Sodium levelOrdered By: Cony Drake on 08-31-2024 Sodium [Moles/Vol] 141 mmol/L 133-145 [facility] White blood cell (WBC) count Ordered By: Audra Drake on 08-31-2024 WBC (Bld) [#/Vol] 6.3 10*3/uL 4.4-11.0 [facility] Absolute lymphocyte countOrd ered By: Nikia Henderson on 08-24-2024 Lymphocytes Auto (Unsp spec) [#/Vol] 1.65 10*3/uL 0.83-4.51 [facility] Anion gap in Serum or Plasma Ordered By: Nikia Henderson on 08-24-2024 Anion gap [Moles/Vol] 9 mmol/L 5-15 [facility] Automated lymphocyte count a s percentage of total leukocytesOrdered By: Nikia Henderson on 08-24-2024 Lymphocytes/100 WBC Auto (Unsp spec) 25.9 % 19-41 [facility] BUN/creatinine ratioOrdered By: Catalinaongbe Roberte on 08-24-2024 Urea nitrogen/Creatinine [Mass ratio] 20.0 mg/mg 10-20 [facility] Basophil percentageOrdered B y: Catalinaongheladio Jonese on 08-24-2024 Basophils/100 WBC (Bld) 0.6 % 0-[address] [facility] Carbon dioxide, total [Moles /volume] in Central venous bloodOrdered By: Nikia Henderson on 08-24-2024 CO2 [Moles/Vol] 26.4 mmol/L 21.0-32.0 [facility] Chloride assayOrdered By: Cecilia Henderson on 08-24-2024 Chloride [Moles/Vol] 107 mmol/L 98-108 [facility] Eosinophil percentageOrdered By: Efguanakoongbe Roberte on 08-24-2024 Eosinophils/100 WBC (Bld) 2.5 % 0-5 [facility] Erythrocyte distribution wid th ratioOrdered By: Onelbe Beatriz on 08-24-2024 Erythrocyte distribution width (RBC) [Ratio] 13.1 % 11.6-14.6 [facility] Erythrocyte distribution wid th standard deviationOrdered By: Nikia Henderson on 08-24-2024 Erythrocyte distribution width (RBC) [Ratio] 49.5 fl High 35.1-43.9 [facility] Glomerular filtration rate ( GFR) estimation/1.73 sq m using serum, plasma, or whole bOrdered By: Nikia Henderson on 08-24-2024 GFR/1.73 sq M.predicted among non-blacks MDRD (S/P/Bld) [Vol rate/Area] 80 mL/min/{1.73_m2} >60 [facility] Hematocrit Auto (Bld) [Volum e fraction]Ordered By: [facility] on 08-24-2024 Hematocrit (Bld) [Volume fraction] 36.3 % Low 37-47 [facility] Hemoglobin measurementOrdere d By: guanakohartwickheladio Henderson on 08-24-2024 Hemoglobin (Bld) [Mass/Vol] 11.7 g/dL Low 12.0-15. 0 [facility] Immature granulocytes/100 WB C Auto (Bld)Ordered By: Nikia Henderson on 08-24-2024 Immature granulocytes/100 WBC (Bld) 0.300 % 0.0-0.9 [facility] MCV (mean corpuscular volume ) determinationOrdered By: Nikia Henderson on 08-24-2024 MCV (RBC) [Entitic vol] 102.0 fL High 81-[address] [facility] Mean corpuscular hemoglobin (MCH) determinationOrdered By: guanakohartwickheladio Henderson on 08-24-2024 MCH (RBC) [Entitic mass] 32.9 pg High 27.0-32.0 [facility] Monocyte percentageOrdered B y: Nikia Henderson on 08-24-2024 Monocytes/100 WBC (Bld) 10.0 % 0-[address] [facility] Neutrophil percentageOrdered By: guanakohartwickheladio Henderson on 08-24-2024 Neutrophils/100 WBC (Bld) 60.7 % 47-70 [facility] Platelet countOrdered By: Cecilia Henderson on 08-24-2024 Platelets (Bld) [#/Vol] 227 10*3/uL 150-450 [facility] Potassium measurement (mass/ volume)Ordered By: Nikia Henderson on 08-24-2024 Potassium (Unsp spec) [Mass/Vol] 4.1 mmol/L 3.3-5.1 [facility] RBC Auto (Bld) [#/Vol]Ordere d By: Catalinafedeheladio Henderson on 08-24-2024 RBC (Bld) [#/Vol] 3.56 10*6/uL Low 4.2-5.4 [facility] Serum creatinine measurement (mass/volume)Ordered By: Nikia Henderson on 08-24-2024 Creatinine [Mass/Vol] 0.76 mg/dL 0.70-1.20 [facility] Serum glucose measurement (m ass/volume)Ordered By: Nikia Henderson on 08-24-2024 Glucose [Mass/Vol] 88 mg/dL 70-99 [facility] Serum or plasma calcium gianluca urement (mass/volume)Ordered By: Nikia Henderson on 08-24-2024 Calcium [Mass/Vol] 9.0 mg/dL 7.6-11.0 [facility] Serum or plasma urea nitroge n measurement (mass/volume)Ordered By: Nikia Henderson on 08-24-2024 Urea nitrogen [Mass/Vol] 15 mg/dL 4-19 [facility] Sodium levelOrdered By: Cecilia terra Cristobaljanicevioletta on 08-24-2024 Sodium [Moles/Vol] 142 mmol/L 133-145 [facility] White blood cell (WBC) count Ordered By: Nikia Henderson on 08-24-2024 WBC (Bld) [#/Vol] 6.4 10*3/uL 4.4-11.0 [facility] CNPNon 08-22-2024 [place] Telephone ([facility]) KEKELIZETTE MARTINEZ ([id number]) 1945 F Date Time Provider Department 08/22/24 [...] your request via staff message to the [employer] Auth Appeals Pool ([id number]). 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 - COMPOUNDED PRESCRIPTION Viki [employer] defense 17 drops daily and working up to 60 drops daily (in divided doses). Serving size 30 drops. 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 Dx: Bilat sprained ankles, gait [...] NOS [K92.2] 03/08/2005 MYALGIA AND MYOSITIS NOS [CET2555] 09/02/2005 CONGENITAL PES PLANUS [Q66.50] 06/29/2007 Tibialis Tendinitis [M76.829] 10/19/2007 Generalized Osteoarthrosis, Unspecified Site [M*04/05/2008 Contact Dermatitis and Other Eczema, due to Uns*04/05/2008 Morbid obesity with BMI of 40.0-44.9, adult (HC* 01/25/2016 Low back pain [M54.50] 12/14/2013 Numbness and tingling in hands [R20.0, R20.2] 12/14/2013 Spinal cord lesion (HCC) [G95.9] 12/14/2013 Neck pain [M54.2] (more content not included)... Normal [facility] Absolute lymphocyte countOrd ered By: Nikia Henderson on 08-17-2024 Lymphocytes Auto (Unsp spec) [#/Vol] 1.53 10*3/uL 0.83-4.51 [facility] Anion gap in Serum or Plasma Ordered By: Nikia Henderson on 08-17-2024 Anion gap [Moles/Vol] 10 mmol/L 5-15 [facility] Automated lymphocyte count a s percentage of total leukocytesOrdered By: Nikia Henderson on 08-17-2024 Lymphocytes/100 WBC Auto (Unsp spec) 26.2 % - [facility] BUN/creatinine ratioOrdered By: Nikia Henderson on 08-17-2024 Urea nitrogen/Creatinine [Mass ratio] 20.9 mg/mg High - [facility] Basophil percentageOrdered B y: Catalinafedeheladio Henderson on 08-17-2024 Basophils/100 WBC (Bld) 0.9 % 0-[address] [facility] Carbon dioxide, total [Moles /volume] in Central venous bloodOrdered By: Nikia Henderson on 08-17-2024 CO2 [Moles/Vol] 26.8 mmol/L 21.0-32.0 [facility] Chloride assayOrdered By: Cecilia kelleeheladio Henderson on 08-17-2024 Chloride [Moles/Vol] 106 mmol/L 98-108 [facility] Eosinophil percentageOrdered By: Nikia Jainjanicevioletta on 08-17-2024 Eosinophils/100 WBC (Bld) 2.1 % 0-5 [facility] Erythrocyte distribution wid th ratioOrdered By: guanakohartwickheladio Henderson on 08-17-2024 Erythrocyte distribution width (RBC) [Ratio] 13.4 % 11.6-14.6 [facility] Erythrocyte distribution wid th standard deviationOrdered By: Nikia Henderson on 08-17-2024 Erythrocyte distribution width (RBC) [Ratio] 50.2 fl High 35.1-43.9 [facility] Glomerular filtration rate ( GFR) estimation/1.73 sq m using serum, plasma, or whole bOrdered By: Nikia Henderson on 08-17-2024 GFR/1.73 sq M.predicted among non-blacks MDRD (S/P/Bld) [Vol rate/Area] 90 mL/min/{1.73_m2} >60 [facility] Hematocrit Auto (Bld) [Volum e fraction]Ordered By: Nikia Henderson on 08-17-2024 Hematocrit (Bld) [Volume fraction] 34.6 % Low 37-47 [facility] Hemoglobin measurementOrdere d By: Nikia Henderson on 08-17-2024 Hemoglobin (Bld) [Mass/Vol] 11.2 g/dL Low 12.0-15. 0 [facility] Immature granulocytes/100 WB C Auto (Bld)Ordered By: Nikia Henderson on 08-17-2024 Immature granulocytes/100 WBC (Bld) 0.500 % 0.0-0.9 [facility] MCV (mean corpuscular volume ) determinationOrdered By: Nikia Cristobaljanicevioletta on 08-17-2024 MCV (RBC) [Entitic vol] 102.7 fL High 81-[address] [facility] Mean corpuscular hemoglobin (MCH) determinationOrdered By: Nikia Henderson on 08-17-2024 MCH (RBC) [Entitic mass] 33.2 pg High 27.0-32.0 [facility] Monocyte percentageOrdered B y: Nikia Henderson on 08-17-2024 Monocytes/100 WBC (Bld) 9.8 % 0-[address] [facility] Neutrophil percentageOrdered By: guanakohartwickheladio Henderson on 08-17-2024 Neutrophils/100 WBC (Bld) 60.5 % 47-70 [facility] Platelet countOrdered By: Cecilia sanchez Cristobalromi on 08-17-2024 Platelets (Bld) [#/Vol] 235 10*3/uL 150-450 [facility] Potassium measurement (mass/ volume)Ordered By: Ceciliaguanakofedeheladio Jainjanicevioletta on 08-17-2024 Potassium (Unsp spec) [Mass/Vol] 3.9 mmol/L 3.3-5.1 [facility] RBC Auto (Bld) [#/Vol]Ordere d By: Nikia Henderson on 08-17-2024 RBC (Bld) [#/Vol] 3.37 10*6/uL Low 4.2-5.4 [facility] Serum creatinine measurement (mass/volume)Ordered By: Cecilialaura Henderson on 08-17-2024 Creatinine [Mass/Vol] 0.66 mg/dL Low 0.70-1.20 [facility] Serum glucose measurement (m ass/volume)Ordered By: Ceciliaguanakofedeheladio Jainjanicevioletta on 08-17-2024 Glucose [Mass/Vol] 84 mg/dL 70-99 [facility] Serum or plasma calcium gianluca urement (mass/volume)Ordered By: Ceciliaguanakofedeheladio Jainjanicevioletta on 08-17-2024 Calcium [Mass/Vol] 9.1 mg/dL 7.6-11.0 [facility] Serum or plasma urea nitroge n measurement (mass/volume)Ordered By: Nikia Henderson on 08-17-2024 Urea nitrogen [Mass/Vol] 14 mg/dL 4-19 [facility] Sodium levelOrdered By: Catalina Henderson on 08-17-2024 Sodium [Moles/Vol] 143 mmol/L 133-145 [facility] White blood cell (WBC) count Ordered By: Nikia Henderson on 08-17-2024 WBC (Bld) [#/Vol] 5.8 10*3/uL 4.4-11.0 [facility] CNOVon 08-13-2024 CNOV Office Visit ([facility] ) LIZETTE DAVIES ([id number]) 1945 F Date Time Provider Department 08/13/24 [...] Snowden MD REFERRING PROVIDER: Jovanni Matthew [address] [facility] [address] Lizette Davies is a 78 year old [...] walked recently and currently resides in [facility]. She does not report bowel or [...] (degenerative disc disease), cervical MRI scanned into [facility] January 11, 2014 ([facility]) DDD (degenerative disc disease), lumbosacral Essential [...] (more content not included)... Normal [facility] Absolute lymphocyte countOrd ered By: Nikia Henderson on 08-10-2024 Lymphocytes Auto (Unsp spec) [#/Vol] 1.61 10*3/uL 0.83-4.51 [facility] Anion gap in Serum or Plasma Ordered By: Nikia Henderson on 08-10-2024 Anion gap [Moles/Vol] 10 mmol/L 5- [facility] Automated lymphocyte count a s percentage of total leukocytesOrdered By: Nikia Henderson on 08-10-2024 Lymphocytes/100 WBC Auto (Unsp spec) 28.1 % - [facility] BUN/creatinine ratioOrdered By: Nikia Henderson on 08-10-2024 Urea nitrogen/Creatinine [Mass ratio] 19.5 mg/mg 10- [facility] Basophil percentageOrdered B y: Nikia Henderson on 08-10-2024 Basophils/100 WBC (Bld) 0.9 % 0-[address] [facility] Carbon dioxide, total [Moles /volume] in Central venous bloodOrdered By: Nikia Henderson on 08-10-2024 CO2 [Moles/Vol] 24.9 mmol/L 21.0-32.0 [facility] Chloride assayOrdered By: Cecilia Henderson on 08-10-2024 Chloride [Moles/Vol] 106 mmol/L 98-108 [facility] Eosinophil percentageOrdered By: Nikia Henderson on 08-10-2024 Eosinophils/100 WBC (Bld) 3.0 % 0-5 [facility] Erythrocyte distribution wid th ratioOrdered By: guanakohartwickheladio Henderson on 08-10-2024 Erythrocyte distribution width (RBC) [Ratio] 13.6 % 11.6-14.6 [facility] Erythrocyte distribution wid th standard deviationOrdered By: Nikia Henderson on 08-10-2024 Erythrocyte distribution width (RBC) [Ratio] 51.5 fl High 35.1-43.9 [facility] Glomerular filtration rate ( GFR) estimation/1.73 sq m using serum, plasma, or whole bOrdered By: Nikia Henderson on 08-10-2024 GFR/1.73 sq M.predicted among non-blacks MDRD (S/P/Bld) [Vol rate/Area] 92 mL/min/{1.73_m2} >60 [facility] Hematocrit Auto (Bld) [Volum e fraction]Ordered By: Nikia Henderson on 08-10-2024 Hematocrit (Bld) [Volume fraction] 35.1 % Low 37-47 [facility] Hemoglobin measurementOrdere d By: Nikia Henderson on 08-10-2024 Hemoglobin (Bld) [Mass/Vol] 11.3 g/dL Low 12.0-15. 0 [facility] Immature granulocytes/100 WB C Auto (Bld)Ordered By: Nikia Henderson on 08-10-2024 Immature granulocytes/100 WBC (Bld) 0.200 % 0.0-0.9 [facility] MCV (mean corpuscular volume ) determinationOrdered By: Ceciliaguanakofedeheladio Henderson on 08-10-2024 MCV (RBC) [Entitic vol] 103.2 fL High 81-[address] [facility] Mean corpuscular hemoglobin (MCH) determinationOrdered By: Onelheladio Jainjanicevioletta on 08-10-2024 MCH (RBC) [Entitic mass] 33.2 pg High 27.0-32.0 [facility] Monocyte percentageOrdered B y: Onelheladio Jainjanicevioletta on 08-10-2024 Monocytes/100 WBC (Bld) 9.3 % 0-[address] [facility] Neutrophil percentageOrdered By: kelleeheladio Jainjanicevioletta on 08-10-2024 Neutrophils/100 WBC (Bld) 58.5 % 47-70 [facility] Platelet countOrdered By: Cecilia laura Cristobaljanicevioletta on 08-10-2024 Platelets (Bld) [#/Vol] 233 10*3/uL 150-450 [facility] Potassium measurement (mass/ volume)Ordered By: Nikia Henderson on 08-10-2024 Potassium (Unsp spec) [Mass/Vol] 4.0 mmol/L 3.3-5.1 [facility] RBC Auto (Bld) [#/Vol]Ordere d By: Ceciliaguanakofedeheladio Jainjanicevioletta on 08-10-2024 RBC (Bld) [#/Vol] 3.40 10*6/uL Low 4.2-5.4 [facility] Serum creatinine measurement (mass/volume)Ordered By: Nikia Henderson on 08-10-2024 Creatinine [Mass/Vol] 0.59 mg/dL Low 0.70-1.20 [facility] Serum glucose measurement (m ass/volume)Ordered By: Nikia Henderson on 08-10-2024 Glucose [Mass/Vol] 80 mg/dL 70-99 [facility] Serum or plasma calcium gianluca urement (mass/volume)Ordered By: Nikia Henderson on 08-10-2024 Calcium [Mass/Vol] 9.0 mg/dL 7.6-11.0 [facility] Serum or plasma urea nitroge n measurement (mass/volume)Ordered By: Nikia Henderson on 08-10-2024 Urea nitrogen [Mass/Vol] 11 mg/dL 4-19 [facility] Sodium levelOrdered By: Catalina terra Beatriz on 08-10-2024 Sodium [Moles/Vol] 141 mmol/L 133-145 [facility] White blood cell (WBC) count Ordered By: Nikia Henderson on 08-10-2024 WBC (Bld) [#/Vol] 5.7 10*3/uL 4.4-11.0 [facility] Absolute lymphocyte countOrd ered By: Audra Drake on 08-03-2024 Lymphocytes Auto (Unsp spec) [#/Vol] 1.37 10*3/uL 0.83-4.51 [facility] Anion gap in Serum or Plasma Ordered By: Audra Drake on 08-03-2024 Anion gap [Moles/Vol] 8 mmol/L 5-15 [facility] Automated lymphocyte count a s percentage of total leukocytesOrdered By: Audra Drake on 08-03-2024 Lymphocytes/100 WBC Auto (Unsp spec) 23.5 % 19-41 [facility] BUN/creatinine ratioOrdered By: Audra Drake on 08-03-2024 Urea nitrogen/Creatinine [Mass ratio] 18.8 mg/mg 10-20 [facility] Basophil percentageOrdered B y: Audra Drake on 08-03-2024 Basophils/100 WBC (Bld) 0.9 % 0-[address] [facility] Bilirubin directOrdered By: Audra Drake on 08-03-2024 Bilirubin.direct [Mass/Vol] 0.10 mg/dL 0.00-0.3 0 [facility] Bilirubin, totalOrdered By: Audra Drake on 08-03-2024 Bilirubin [Mass/Vol] 0.17 mg/dL 0.00-1.30 [facility] Carbon dioxide, total [Moles /volume] in Central venous bloodOrdered By: Audra Drake on 08-03-2024 CO2 [Moles/Vol] 24.9 mmol/L 21.0-32.0 [facility] Chloride assayOrdered By: Dimitris Drake on 08-03-2024 Chloride [Moles/Vol] 107 mmol/L 98-108 [facility] Eosinophil percentageOrdered By: Audra Drake on 08-03-2024 Eosinophils/100 WBC (Bld) 2.6 % 0-5 [facility] Erythrocyte distribution wid th ratioOrdered By: Audra Drake on 08-03-2024 Erythrocyte distribution width (RBC) [Ratio] 13.9 % 11.6-14.6 [facility] Erythrocyte distribution wid th standard deviationOrdered By: Audra Drake on 08-03-2024 Erythrocyte distribution width (RBC) [Ratio] 52.4 fl High 35.1-43.9 [facility] Folate [Moles/volume] in Ser um or PlasmaOrdered By: Audra Drake on 08-03-2024 Folate [Moles/Vol] 36.80 ng/mL High 4.60-34.80 [facility] Glomerular filtration rate ( GFR) estimation/1.73 sq m using serum, plasma, or whole bOrdered By: Audra Drake on 08-03-2024 GFR/1.73 sq M.predicted among non-blacks MDRD (S/P/Bld) [Vol rate/Area] 87 mL/min/{1.73_m2} >60 [facility] Hematocrit Auto (Bld) [Volum e fraction]Ordered By: Audra Drake on 08-03-2024 Hematocrit (Bld) [Volume fraction] 33.6 % Low 37-47 [facility] Hemoglobin measurementOrdere d By: Audra Drake on 08-03-2024 Hemoglobin (Bld) [Mass/Vol] 11.0 g/dL Low 12.0-15. 0 [facility] Immature granulocytes/100 WB C Auto (Bld)Ordered By: Audra Drake on 08-03-2024 Immature granulocytes/100 WBC (Bld) 0.300 % 0.0-0.9 [facility] MCV (mean corpuscular volume ) determinationOrdered By: Audra Drake on 08-03-2024 MCV (RBC) [Entitic vol] 103.7 fL High 81-[address] [facility] Magnesium measurement (mass/ volume)Ordered By: Audra Drake on 08-03-2024 Magnesium (Unsp spec) [Mass/Vol] 2.3 mg/dL High 1.5-2.2 [facility] Mean corpuscular hemoglobin (MCH) determinationOrdered By: Audra Drake on 08-03-2024 MCH (RBC) [Entitic mass] 34.0 pg High 27.0-32.0 [facility] Monocyte percentageOrdered B y: Audra Drake on 08-03-2024 Monocytes/100 WBC (Bld) 10.3 % High 0-[address] [facility] Neutrophil percentageOrdered By: Audra Drake on 08-03-2024 Neutrophils/100 WBC (Bld) 62.4 % 47-70 [facility] No Panel InformationOrdered By: Audra Drake on 08-03-2024 21 U/L <32 [facility] Platelet countOrdered By: Dimitris Drake on 08-03-2024 Platelets (Bld) [#/Vol] 243 10*3/uL 150-450 [facility] Potassium measurement (mass/ volume)Ordered By: Audra Drake on 08-03-2024 Potassium (Unsp spec) [Mass/Vol] 4.4 mmol/L 3.3-5.1 [facility] RBC Auto (Bld) [#/Vol]Ordere d By: Audra Drake on 08-03-2024 RBC (Bld) [#/Vol] 3.24 10*6/uL Low 4.2-5.4 [facility] Serum creatinine measurement (mass/volume)Ordered By: Audra Drake on 08-03-2024 Creatinine [Mass/Vol] 0.71 mg/dL 0.70-1.20 [facility] Serum globulin measurementOr dered By: Audra Drake on 08-03-2024 Globulin (S) [Mass/Vol] 3.0 g/dL 2.2-4.[address] [facility] Serum glucose measurement (m ass/volume)Ordered By: Audra Drake on 08-03-2024 Glucose [Mass/Vol] 89 mg/dL 70-99 [facility] Serum or plasma alanine kim otransferase (ALT) measurementOrdered By: Audra Drake on 08-03-2024 ALT [Catalytic activity/Vol] 15 U/L <35 [facility] Serum or plasma albumin gianluca urement (mass/volume)Ordered By: Audra Drake on 08-03-2024 Albumin [Mass/Vol] 3.2 g/dL Low 3.4-4.8 [facility] Serum or plasma alkaline nikole sphatase measurementOrdered By: Audra Drake on 08-03-2024 ALP [Catalytic activity/Vol] 85 U/L 35-104 [facility] Serum or plasma calcium gianluca urement (mass/volume)Ordered By: Audra Drake on 08-03-2024 Calcium [Mass/Vol] 8.8 mg/dL 7.6-11.0 [facility] Serum or plasma urea nitroge n measurement (mass/volume)Ordered By: Audra Drake on 08-03-2024 Urea nitrogen [Mass/Vol] 13 mg/dL 4-19 [facility] Sodium levelOrdered By: Cony Drake on 08-03-2024 Sodium [Moles/Vol] 140 mmol/L 133-145 [facility] Total proteinOrdered By: Rubin Drake on 08-03-2024 Protein [Mass/Vol] 6.2 g/dL 5.9-8.4 [facility] Vitamin B12 ser/plasOrdered By: Audra Drake on 08-03-2024 Cobalamin (Vitamin B12) [Mass/Vol] 1509 pg/mL High 180-914 [facility] White blood cell (WBC) count Ordered By: Audra Drake on 08-03-2024 WBC (Bld) [#/Vol] 5.8 10*3/uL 4.4-11.0 [facility] Absolute lymphocyte countOrd ered By: Audra Drake on 07-27-2024 Lymphocytes Auto (Unsp spec) [#/Vol] 1.57 10*3/uL 0.83-4.51 [facility] Anion gap in Serum or Plasma Ordered By: Audra Drake on 07-27-2024 Anion gap [Moles/Vol] 9 mmol/L 5-15 [facility] Automated lymphocyte count a s percentage of total leukocytesOrdered By: Audra Drake on 07-27-2024 Lymphocytes/100 WBC Auto (Unsp spec) 26.8 % 19-41 [facility] BUN/creatinine ratioOrdered By: Audra Drake on 07-27-2024 Urea nitrogen/Creatinine [Mass ratio] 19.1 mg/mg 10-20 [facility] Basophil percentageOrdered B y: Audra Drake on 07-27-2024 Basophils/100 WBC (Bld) 0.7 % 0-[address] [facility] Carbon dioxide, total [Moles /volume] in Central venous bloodOrdered By: Audra Drake on 07-27-2024 CO2 [Moles/Vol] 24.8 mmol/L 21.0-32.0 [facility] Chloride assayOrdered By: Dimitris Drake on 07-27-2024 Chloride [Moles/Vol] 106 mmol/L 98-108 [facility] Eosinophil percentageOrdered By: Audra Drake on 07-27-2024 Eosinophils/100 WBC (Bld) 2.4 % 0-5 [facility] Erythrocyte distribution wid th ratioOrdered By: Audra Drake on 07-27-2024 Erythrocyte distribution width (RBC) [Ratio] 14.1 % 11.6-14.6 [facility] Erythrocyte distribution wid th standard deviationOrdered By: Audra Drake on 07-27-2024 Erythrocyte distribution width (RBC) [Ratio] 53.5 fl High 35.1-43.9 [facility] Glomerular filtration rate ( GFR) estimation/1.73 sq m using serum, plasma, or whole bOrdered By: Audra Drake on 07-27-2024 GFR/1.73 sq M.predicted among non-blacks MDRD (S/P/Bld) [Vol rate/Area] 90 mL/min/{1.73_m2} >60 [facility] Hematocrit Auto (Bld) [Volum e fraction]Ordered By: Audra Drake on 07-27-2024 Hematocrit (Bld) [Volume fraction] 33.1 % Low 37-47 [facility] Hemoglobin measurementOrdere d By: Audra Drake on 07-27-2024 Hemoglobin (Bld) [Mass/Vol] 11.0 g/dL Low 12.0-15. 0 [facility] Immature granulocytes/100 WB C Auto (Bld)Ordered By: Audra Drake on 07-27-2024 Immature granulocytes/100 WBC (Bld) 0.500 % 0.0-0.9 [facility] MCV (mean corpuscular volume ) determinationOrdered By: Audra Drake on 07-27-2024 MCV (RBC) [Entitic vol] 103.4 fL High 81-[address] [facility] Mean corpuscular hemoglobin (MCH) determinationOrdered By: Audra Drake on 07-27-2024 MCH (RBC) [Entitic mass] 34.4 pg High 27.0-32.0 [facility] Monocyte percentageOrdered B y: Audra Drake on 07-27-2024 Monocytes/100 WBC (Bld) 10.4 % High 0-[address] [facility] Neutrophil percentageOrdered By: Audra Drake on 07-27-2024 Neutrophils/100 WBC (Bld) 59.2 % 47-70 [facility] Platelet countOrdered By: Dimitris Drake on 07-27-2024 Platelets (Bld) [#/Vol] 282 10*3/uL 150-450 [facility] Potassium measurement (mass/ volume)Ordered By: Audra Drake on 07-27-2024 Potassium (Unsp spec) [Mass/Vol] 4.3 mmol/L 3.3-5.1 [facility] RBC Auto (Bld) [#/Vol]Ordere d By: Audra Drake on 07-27-2024 RBC (Bld) [#/Vol] 3.20 10*6/uL Low 4.2-5.4 [facility] Serum creatinine measurement (mass/volume)Ordered By: Audra Drake on 07-27-2024 Creatinine [Mass/Vol] 0.65 mg/dL Low 0.70-1.20 [facility] Serum glucose measurement (m ass/volume)Ordered By: Audra Drake on 07-27-2024 Glucose [Mass/Vol] 90 mg/dL 70-99 [facility] Serum or plasma calcium gianluca urement (mass/volume)Ordered By: Audra Drake on 07-27-2024 Calcium [Mass/Vol] 8.9 mg/dL 7.6-11.0 [facility] Serum or plasma urea nitroge n measurement (mass/volume)Ordered By: Audra Drake on 07-27-2024 Urea nitrogen [Mass/Vol] 12 mg/dL 4-19 [facility] Sodium levelOrdered By: Cony yadi Drake on 07-27-2024 Sodium [Moles/Vol] 140 mmol/L 133-145 [facility] White blood cell (WBC) count Ordered By: Audra Drake on 07-27-2024 WBC (Bld) [#/Vol] 5.9 10*3/uL 4.4-11.0 [facility] CNPNon 07-22-2024 CNPN Telephone (ENDOMN) LIZETTE DAVIES ([id number]) 1945 F Date Time Provider Department 07/22/24 [...] mouth once daily. - COMPOUNDED PRESCRIPTION [employer] defense 17 drops daily and working up to 60 drops daily (in divided doses). Serving size 30 drops. 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 Normal [facility] 1,25-dihydroxyvitamin D3 [Ma ss/Vol]on 07-21-2024 VIT D1,25 DIHYDROXY 34.0 pg/mL Normal 19.9-79.3 [facility] Comment on above: Order Comment: Iwona pedro Type: BLOOD SPECIMENOrdering Facility: [facility] Address: [address] [place] [address] Performed By: #### 1 989-3, 1648-3 ####[facility] [id number] [place] [address] [place] 25(OH)D3 SerPl-ncon 2024 25-hydroxyvitamin D3 [Mass/Vol] 65.9 ng/mL Normal 31.0-80.0 [facility] Comment on above: Order Comment: Iwona pedro Type: BLOOD SPECIMENOrdering Facility: [facility] Address: [address] [place] [address] Result Comment: Clas sification of 25 [place] Vitamin D status: Deficiency/Insufficiency: < or = 30 ng/ml. Sufficiency/Optimal Levels: 31-80 ng/mL Toxicity: > 100 ng/mL. Test performed by chemiluminescent immunoassay. Performed By: #### 1 989-3, 1648-3 ####[facility] LABIA [id number] [place] [id number] [place] CNOVon 07-21-2024 CNOV Office Visit (ENDOMN ) LIZETTE DAVIES ([id number]) 1945 F Date Time Provider Department 07/21/24 3:00 PM AJAY GRANT ENDOMN During your visit today, we recorded the following information about you: Pulse Blood pressure Weight Height 98/minute 109/75 68 kg 1.473 m Bebo Martinez MA 07/21/2024 2:47 PM Signed Thank you for choosing the [facility] Department of Endocrinology, Diabetes and Metabolism. Did you know that you need to call 48 hours in advance of your scheduled visit, if you are unable to make your appointment? The Endocrinology and Metabolism [place] thanks you for your commitment, because patients not showing to their appointment results in a lost opportunity for patients to receive [facility] care at the [facility]. To Cancel an appointment, please choose one of the following: - Call the Appointment Call Center at [phone] - From [employer], Go to Appointments - Cancel Appts If cancelling, consider your need to reschedule to prevent further delays in your care. To Schedule an appointment, please choose one of the following: - Call the Appointment Call Center at [phone] - From [employer], Go to Appointments - Request an Appt [...] taking: Reported on 07/21/2024) COMPOUNDED PRESCRIPTION Viki [employer] defense 17 drops daily and working up to 60 drops daily (in divided doses). Serving size 30 drops. 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 Dx: Bilat sprained ankles, gait instability. acetaminophen (TYLENOL EXTRA STRENGTH) 500 mg tablet Take 1 tablet by mouth every 6 hours as needed for Pain. Magnesium 250 mg tab Take 1,000 mg by mouth. (Patient not taking: Reported on 07/21/2024) MULTIVITAMIN TAB Take one(1) tablet daily. (Patient not taking: Reported on 07/21/2024) No current fa (more content not included)... Normal [facility] Office Visit (REMS31 ) LIZETTE DAVIES ([id number]) 1945 F Date Time Provider Department 07/21/24 [...] fusion/decompression Chronic back pain but right before Caitlingialessandra fell with worsening LBP. With eventual went [...] transitional care- ECF - PT stopped at [facility]. Can walk some with walker- about [...] (degenerative disc disease), cervical MRI scanned into [facility] January 11, 2014 ([facility]) DDD (degenerative disc disease), lumbosacral Essential [...] EGD ESOPHAGOGASTRODUODENO SCOPY TRANSORAL DIAGNOSTIC 02/16/15 EGD [facility] inpt ESOPHAGOGASTRODUODENO SCOPY TRANSORAL DIAGNOSTIC 05/11/15 EGD EXTRACTION, ERUPTED TOOTH OR EXPOSED ROOT (ELEVATION AND/OR FORCEPS REMOVAL) 1970's Wi (more content not included)... Normal [facility] Comprehensive metabolic 2000 panelon 07-21-2024 Albumin [Mass/Vol] 3.9 g/dL Normal 3.9-4.9 [facility] Comment on above: Order Comment: Speci men Type: BLOOD SPECIMENOrdering Facility: [facility] Address: [address] [place] [address] Performed By: #### 2 731-8, 40950-4, 3016-3, 2777-1 ####[facility] LABCLIA [id number] [address] [place] [address] [place] ALP [Catalytic activity/Vol] 108 U/L Normal 34-123 [facility] Comment on above: Order Comment: Speci men Type: BLOOD SPECIMENOrdering Facility: [facility] Address: [address] [place] [address] Performed By: #### 2 731-8, 49214-8, 3016-3, 2777-1 ####[facility] LABCLIA [id number] [place] [id number] [place] ALT [Catalytic activity/Vol] 13 U/L Normal 7-38 [facility] Comment on above: Order Comment: Speci men Type: BLOOD SPECIMENOrdering Facility: [facility] Address: [address] [place] [address] Performed By: #### 2 731-8, 66408-4, 3015-3, 2777-1 ####[facility] LABCLIA [id number] [place] [id number] [place] Anion gap [Moles/Vol] 14 mmol/L Normal 8-15 [facility] Comment on above: Order Comment: Speci men Type: BLOOD SPECIMENOrdering Facility: [facility] Address: [address] [place] [address] Performed By: #### 2 731-8, 46465-9, 3015-3, 2777-1 ####[facility] LABCLIA [id number] [place] [id number] [place] AST [Catalytic activity/Vol] 19 U/L Normal 13-35 [facility] Comment on above: Order Comment: Speci men Type: BLOOD SPECIMENOrdering Facility: [facility] Address: [address] [place] [address] Performed By: #### 2 731-8, 38750-1, 3016-3, 2777-1 ####[facility] LABCLIA [id number] [address] [address] [place] Bilirubin [Mass/Vol] 0.3 mg/dL Normal 0.2-1.3 [facility] Comment on above: Order Comment: Speci men Type: BLOOD SPECIMENOrdering Facility: [facility] Address: [address] [place], [place] [id number] Performed By: #### 2 731-8, 97018-7, 3016-3, 2777-1 ####[facility] LABCLIA [id number] [place] [id number] [place] Calcium [Mass/Vol] 9.6 mg/dL Normal 8.5-10.2 [facility] Comment on above: Order Comment: Speci men Type: BLOOD SPECIMENOrdering Facility: [facility] Address: [address] [place] [address] Performed By: #### 2 731-8, 21287-1, 3015-3, 2777-1 ####[facility] LABCLIA [id number] [place] [id number] [place] Chloride [Moles/Vol] 100 mmol/L Normal 98-107 [facility] Comment on above: Order Comment: Speci men Type: BLOOD SPECIMENOrdering Facility: [facility] Address: [address] [place] [address] Performed By: #### 2 731-8, 00871-5, 6-3, 2777-1 ####[facility] LABCLIA [id number] [place] [id number] [place] CO2 [Moles/Vol] 25 mmol/L Normal 22-30 [facility] Comment on above: Order Comment: Speci men Type: BLOOD SPECIMENOrdering Facility: [facility] Address: [address] [place] [address] Performed By: #### 2 731-8, 13362-2, 3016-3, 2777-1 ####[facility] LABCLIA [id number] [place] [id number] [place] Creatinine [Mass/Vol] 0.79 mg/dL Normal 0.58-0.96 [facility] Comment on above: Order Comment: Iwona pedro Type: BLOOD SPECIMENOrdering Facility: [facility] Address: [address] [place] [address] Performed By: #### 2 731-8, 86272-0, 3016-3, 2777-1 ####[facility] LABCLIA [id number] [place] [address] [place] [facility] Creatinine and Glomerular filtration rate.predicted panel (S/P/Bld) 77 mL/min/1.73m??? Normal >=60 [facility] Comment on above: Order Comment: Iwona pedro Type: BLOOD SPECIMENOrdering Facility: [facility] Address: [address] [place] [address] Result Comment: Brigida mated Glomerular Filtration Rate [...] actual GFR. Performed By: #### 2 731-8, 30941-3, 3016-3, 277-1 ####[facility] LABCLIA [id number] [place] [id number] [place] Glucose [Mass/Vol] 97 mg/dL Normal 74-99 [facility] Comment on above: Order Comment: Iwona willis Type: BLOOD SPECIMENOrdering Facility: [facility] Address: [address] [place] [address] Result Comment: The [place] Diabetes Association (ADA) provides guidance for cutoff [...] Standards of Medical Care in Diabetes 2016, [place] [employer]. Diabetes Care. 2016.39(Suppl 1). Performed By: #### 2 731-8, 17865-4, 6-3, 7-1 ####[facility] LABCLIA [id number] [place] [address] [place] Potassium [Moles/Vol] 5.1 mmol/L Normal 3.7-5.1 [facility] Comment on above: Order Comment: Iwona pedro Type: BLOOD SPECIMENOrdering Facility: [facility] Address: [address] [place] [address] Performed By: #### 2 731-8, 36743-7, 3, 2776- ####[facility] LABCLIA [id number] [place] [address] [place] Protein [Mass/Vol] 7.0 g/dL Normal 6.3-8.0 [facility] Comment on above: Order Comment: Iwona pedro Type: BLOOD SPECIMENOrdering Facility: [facility] Address: [address] [place], [place] [address] Performed By: #### 2 731-8, 80772-6, 3, 2776- ####[facility]IA [id number] [place] [id number] [place] Sodium [Moles/Vol] 139 mmol/L Normal 136-144 [facility] Comment on above: Order Comment: Megi men Type: BLOOD SPECIMENOrdering Facility: [facility] Address: [address] [place] [address] Performed By: #### 2 731-8, 02476-1, 3015-3, 2777-1 ####[facility] LABCLIA [id number] [address] [place] [address] [place] Urea nitrogen [Mass/Vol] 14 mg/dL Normal 7-21 [facility] Comment on above: Order Comment: Speci men Type: BLOOD SPECIMENOrdering Facility: [facility] Address: [address] [place], [place] [address] Performed By: #### 2 731-8, 61019-1, 3016-3, 2777-1 ####[facility]IA [id number] [address] [address] [place] PTH-Intact SerPl-mCncon - Parathyrin.intact [Mass/Vol] 20 pg/mL Normal 15-65 [facility] Comment on above: Order Comment: Speci men Type: BLOOD SPECIMENOrdering Facility: [facility] Address: [address] [place] [address] Performed By: #### 2 731-8, 38811-7, 3016-3, 2777-1 ####[facility] LABIA [id number] [place] [id number] [place] Phosphate SerPl-mCncon 07-21 Phosphate [Mass/Vol] 3.9 mg/dL Normal 2.7-4.8 [facility] Comment on above: Order Comment: Speci men Type: BLOOD SPECIMENOrdering Facility: [facility] Address: [address] [place], [place] [address] Performed By: #### 2 731-8, 23250-1, 3016-3, 2777-1 ####[facility] LABIA [id number] [place] [id number] [place] TSH SerPl-aCncon 07-21-2024 TSH Qn 0.762 m[IU]/L Normal 0.270-4.200 [facility] Comment on above: Order Comment: Speci men Type: BLOOD SPECIMENOrdering Facility: [facility] Address: [address] [place] [address] Performed By: #### 2 731-8, 44993-3, 3016-3, 2777-1 ####[facility] LABCLIA [id number] [place] [address] [place] [facility] Absolute lymphocyte countOrd ered By: Nikia Henderson on 07-20-2024 Lymphocytes Auto (Unsp spec) [#/Vol] 1.71 10*3/uL 0.83-4.51 [facility] Anion gap in Serum or Plasma Ordered By: Nikia Henderson on 07-20-2024 Anion gap [Moles/Vol] 10 mmol/L 5-15 [facility] Automated lymphocyte count a s percentage of total leukocytesOrdered By: Nikia Henderson on 07-20-2024 Lymphocytes/100 WBC Auto (Unsp spec) 28.0 % 19-41 [facility] BUN/creatinine ratioOrdered By: Nikia Henderson on 07-20-2024 Urea nitrogen/Creatinine [Mass ratio] 16.1 mg/mg 10-20 [facility] Basophil percentageOrdered B y: Nikia Henderson on 07-20-2024 Basophils/100 WBC (Bld) 0.7 % 0-1 [facility] Carbon dioxide, total [Moles /volume] in Central venous bloodOrdered By: Nikia Henderson on 07-20-2024 CO2 [Moles/Vol] 23.8 mmol/L 21.0-32.0 [facility] Chloride assayOrdered By: Ef laura Henderson on 07-20-2024 Chloride [Moles/Vol] 104 mmol/L 98-108 [facility] Eosinophil percentageOrdered By: Nikia Jonese on 07-20-2024 Eosinophils/100 WBC (Bld) 2.1 % 0-5 [facility] Erythrocyte distribution wid th ratioOrdered By: Efguanakoongbe Roberte on 07-20-2024 Erythrocyte distribution width (RBC) [Ratio] 13.7 % 11.6-14.6 [facility] Erythrocyte distribution wid th standard deviationOrdered By: Onelbe Roberte on 07-20-2024 Erythrocyte distribution width (RBC) [Ratio] 50.0 fl High 35.1-43.9 [facility] Glomerular filtration rate ( GFR) estimation/1.73 sq m using serum, plasma, or whole bOrdered By: Nikia Henderson on 07-20-2024 GFR/1.73 sq M.predicted among non-blacks MDRD (S/P/Bld) [Vol rate/Area] 92 mL/min/{1.73_m2} >60 [facility] Hematocrit Auto (Bld) [Volum e fraction]Ordered By: Nikia Henderson on 07-20-2024 Hematocrit (Bld) [Volume fraction] 33.5 % Low 37-47 [facility] Hemoglobin measurementOrdere d By: Nikia Henderson on 07-20-2024 Hemoglobin (Bld) [Mass/Vol] 11.3 g/dL Low 12.0-15. 0 [facility] Immature granulocytes/100 WB C Auto (Bld)Ordered By: Nikia eHnderson on 07-20-2024 Immature granulocytes/100 WBC (Bld) 0.500 % 0.0-0.9 [facility] MCV (mean corpuscular volume ) determinationOrdered By: Nikia Henderson on 07-20-2024 MCV (RBC) [Entitic vol] 100.0 fL High 81-[address] [facility] Mean corpuscular hemoglobin (MCH) determinationOrdered By: laura Henderson on 07-20-2024 MCH (RBC) [Entitic mass] 33.7 pg High 27.0-32.0 [facility] Monocyte percentageOrdered B y: Nikia Henderson on 07-20-2024 Monocytes/100 WBC (Bld) 10.2 % High 0-[address] [facility] Neutrophil percentageOrdered By: Nikia Henderson on 07-20-2024 Neutrophils/100 WBC (Bld) 58.5 % 47-70 [facility] Platelet countOrdered By: Cecilia Henderson on 07-20-2024 Platelets (Bld) [#/Vol] 276 10*3/uL 150-450 [facility] Potassium measurement (mass/ volume)Ordered By: Nikia Henderson on 07-20-2024 Potassium (Unsp spec) [Mass/Vol] 4.1 mmol/L 3.3-5.1 [facility] RBC Auto (Bld) [#/Vol]Ordere d By: Nikia Henderson on 07-20-2024 RBC (Bld) [#/Vol] 3.35 10*6/uL Low 4.2-5.4 [facility] Serum creatinine measurement (mass/volume)Ordered By: Nikia Henderson on 07-20-2024 Creatinine [Mass/Vol] 0.59 mg/dL Low 0.70-1.20 [facility] Serum glucose measurement (m ass/volume)Ordered By: Nikia Henderson on 07-20-2024 Glucose [Mass/Vol] 85 mg/dL 70-99 [facility] Serum or plasma calcium gianluca urement (mass/volume)Ordered By: Nikia Henderson on 07-20-2024 Calcium [Mass/Vol] 9.1 mg/dL 7.6-11.0 [facility] Serum or plasma urea nitroge n measurement (mass/volume)Ordered By: Nikia Henderson on 07-20-2024 Urea nitrogen [Mass/Vol] 9 mg/dL 4-19 [facility] Sodium levelOrdered By: Catalina connerling Beatriz on 07-20-2024 Sodium [Moles/Vol] 138 mmol/L 133-145 [facility] White blood cell (WBC) count Ordered By: Nikia Henderson on 07-20-2024 WBC (Bld) [#/Vol] 6.1 10*3/uL 4.4-11.0 [facility] Absolute lymphocyte countOrd ered By: Nikia Henderson on 07-13-2024 Lymphocytes Auto (Unsp spec) [#/Vol] 1.48 10*3/uL 0.83-4.51 [facility] Absolute neutrophil countOrd ered By: Nikia Henderson on 07-13-2024 Absolute neutrophil count 3.7 X10^3/uL 2.0-7.7 [facility] Anion gap [Moles/Vol]Ordered By: Nikia Henderson on 07-13-2024 Anion gap in Serum or Plasma 9 08-12 [facility] Anion gap in Serum or Plasma Ordered By: Nikia Henderson on 07-13-2024 Anion gap [Moles/Vol] 9 mmol/L 08-12 [facility] Automated lymphocyte count a s percentage of total leukocytesOrdered By: Nikia Henderson on 07-13-2024 Lymphocytes/100 WBC Auto (Unsp spec) 24.8 % - [facility] BUN/creatinine ratioOrdered By: Nikia Henderson on 07-13-2024 Urea nitrogen/Creatinine [Mass ratio] 19.7 mg/mg 01-17 [facility] BUN/creatinine ratio 19.7 RATIO 01-17 [facility] Basophil percentageOrdered B y: Nikia Henderson on 07-13-2024 Basophils/100 WBC (Bld) 0.8 % 0-[address] [facility] Basophil percentage 0.8 % 0-1 [facility] Calcium [Mass/Vol]Ordered By : Nikia Henderson on 07-13-2024 Serum or plasma calcium measurement (mass/volume) 8.8 mg/dL 7.6-11.0 [facility] Carbon dioxide, total [Moles /volume] in Central venous bloodOrdered By: Nikia Henderson on 07-13-2024 CO2 [Moles/Vol] 24.1 mmol/L 21.0-32.0 [facility] Carbon dioxide, total [Moles/volume] in Central venous blood 24.1 mmol/L 21.0-32.0 [facility] Chloride assayOrdered By: Cecilia Henderson on 07-13-2024 Chloride [Moles/Vol] 108 mmol/L 98-108 [facility] Chloride assay 108 mmol/L 98-108 [facility] Creatinine [Mass/Vol]Ordered By: Nikia Henderson on 07-13-2024 Serum creatinine measurement (mass/volume) 0.59 mg/dL Low 0.70-1.20 [facility] Eosinophil percentageOrdered By: Nikia Henderson on 07-13-2024 Eosinophils/100 WBC (Bld) 2.9 % 0-5 [facility] Eosinophil percentage 2.9 % 0-5 [facility] Erythrocyte distribution wid th (RBC) [Ratio]Ordered By: Nikia Henderson on 07-13-2024 Erythrocyte distribution width ratio 14.2 % 11.6-14.6 [facility] Erythrocyte distribution width standard deviation 52.8 fl High 35.1-43.9 [facility] Erythrocyte distribution wid th ratioOrdered By: Nikia Henderson on 07-13-2024 Erythrocyte distribution width (RBC) [Ratio] 14.2 % 11.6-14.6 [facility] Erythrocyte distribution wid th standard deviationOrdered By: Nikia Henderson on 07-13-2024 Erythrocyte distribution width (RBC) [Ratio] 52.8 fl High 35.1-43.9 [facility] GFR/1.73 sq M.predicted viji g non-blacks MDRD (S/P/Bld) [Vol rate/Area]Ordered By: Nikia Henderson on 07-13-2024 Glomerular filtration rate (GFR) estimation/1.73 sq m using serum, plasma, or whole b 92 >60 [facility] Glomerular filtration rate ( GFR) estimation/1.73 sq m using serum, plasma, or whole bOrdered By: Nikia Henderson on 07-13-2024 GFR/1.73 sq M.predicted among non-blacks MDRD (S/P/Bld) [Vol rate/Area] 92 mL/min/{1.73_m2} >60 [facility] Glucose [Mass/Vol]Ordered By : Nikia Henderson on 07-13-2024 Serum glucose measurement (mass/volume) 84 mg/dL 70-99 [facility] Hematocrit Auto (Bld) [Volum e fraction]Ordered By: Nikia Henderson on 07-13-2024 Hematocrit (Bld) [Volume fraction] 32.8 % Low 37-47 [facility] Automated blood hematocrit (percentage) 32.8 % Low 37-47 [facility] Hemoglobin measurementOrdere d By: Nikia Henderson on 07-13-2024 Hemoglobin (Bld) [Mass/Vol] 10.8 g/dL Low 12.0-15. 0 [facility] Hemoglobin measurement 10.8 g/dL Low 12.0-15.0 [facility] Immature granulocytes/100 WB C Auto (Bld)Ordered By: Nikia Henderson on 07-13-2024 Immature granulocytes/100 WBC (Bld) 0.700 % 0.0-0.9 [facility] Automated immature granulocyte percentage 0.700 % 0.0-0.9 [facility] Lymphocytes Auto (Unsp spec) [#/Vol]Ordered By: Nikia Henderson on 07-13-2024 Absolute lymphocyte count 1.48 X10^3/uL 0.83-4. 51 [facility] Lymphocytes/100 WBC Auto (Un sp spec)Ordered By: Nikia Henderson on 07-13-2024 Automated lymphocyte count as percentage of total leukocytes 24.8 % 19-41 [facility] MCV (RBC) [Entitic vol]Order ed By: Nikia Henderson on 07-13-2024 MCV (mean corpuscular volume) determination 102.2 fL High 81-99 [facility] MCV (mean corpuscular volume ) determinationOrdered By: Nikia Henderson on 07-13-2024 MCV (RBC) [Entitic vol] 102.2 fL High 81-[address] [facility] Mean corpuscular hemoglobin (MCH) determinationOrdered By: Nikia Henderson on 07-13-2024 MCH (RBC) [Entitic mass] 33.6 pg High 27.0-32.0 [facility] Mean corpuscular hemoglobin (MCH) determination 33.6 pg High 27.0-32.0 [facility] Mean corpuscular hemoglobin concentration (MCHC) determinationOrdered By: Nikia Henderson on 07-13-2024 Mean corpuscular hemoglobin concentration (MCHC) determination 32.9 g/dL 32-36 [facility] Mean platelet volume determi nationOrdered By: Nikia Henderson on 07-13-2024 Mean platelet volume determination 9.5 fl 6.2-12.0 [facility] Monocyte percentageOrdered B y: Nikia Henderson on 07-13-2024 Monocytes/100 WBC (Bld) 9.1 % 0-[address] [facility] Monocyte percentage 9.1 % 0-10 [facility] Neutrophil percentageOrdered By: Nikia Henderson on 07-13-2024 Neutrophils/100 WBC (Bld) 61.7 % 47-70 [facility] Neutrophil percentage 61.7 % 47-70 [facility] Nucleated red blood cell per centageOrdered By: Nikia Henderson on 07-13-2024 Nucleated red blood cell percentage 0 % 0-5 [facility] Platelet countOrdered By: Cecilia Henderson on 07-13-2024 Platelets (Bld) [#/Vol] 267 10*3/uL 150-450 [facility] Platelet count 267 K/mm3 150-450 [facility] Potassium (Unsp spec) [Mass/ Vol]Ordered By: Nikia Henderson on 07-13-2024 Potassium measurement (mass/volume) 4.1 mmol/L 3.3-5.1 [facility] Potassium measurement (mass/ volume)Ordered By: Nikia Henderson on 07-13-2024 Potassium (Unsp spec) [Mass/Vol] 4.1 mmol/L 3.3-5.1 [facility] RBC Auto (Bld) [#/Vol]Ordere d By: Nikia Henderson on 07-13-2024 RBC (Bld) [#/Vol] 3.21 10*6/uL Low 4.2-5.4 [facility] Automated blood erythrocyte count 3.21 M/mm3 Low 4.2-5.4 [facility] Serum creatinine measurement (mass/volume)Ordered By: Nikia Henderson on 07-13-2024 Creatinine [Mass/Vol] 0.59 mg/dL Low 0.70-1.20 [facility] Serum glucose measurement (m ass/volume)Ordered By: Nikia Henderson on 07-13-2024 Glucose [Mass/Vol] 84 mg/dL 70-99 [facility] Serum or plasma calcium gianluca urement (mass/volume)Ordered By: Nikia Henderson on 07-13-2024 Calcium [Mass/Vol] 8.8 mg/dL 7.6-11.0 [facility] Serum or plasma urea nitroge n measurement (mass/volume)Ordered By: Nikia Henderson on 07-13-2024 Urea nitrogen [Mass/Vol] 12 mg/dL 07-17 [facility] Sodium levelOrdered By: Catalina terra Beatriz on 07-13-2024 Sodium [Moles/Vol] 141 mmol/L 133-145 [facility] Sodium level 141 mmol/L 133-145 [facility] Urea nitrogen [Mass/Vol]Orde red By: Nikia Henderson on 07-13-2024 Serum or plasma urea nitrogen measurement (mass/volume) 12 mg/dL 07-17 [facility] White blood cell (WBC) count Ordered By: Nikia Henderson on 07-13-2024 WBC (Bld) [#/Vol] 6.0 10*3/uL 4.4-11.0 [facility] White blood cell (WBC) count 6.0 K/mm3 4.4-11.0 [facility]08[facility]20[facility] KEKELIZETTE Teri ([id number]) 1945 F Date Time Provider Department 07/08/24 JOVANNI MATTHEW REMS31 During your visit today, we recorded the following information about you: Andressa Arias 07/08/2024 1:55 PM Signed New Patient appointment on 07/21/24 Received outside hospital, [facility] Radiology reports for x-rays and MRIs for [...] mouth once daily. - COMPOUNDED PRESCRIPTION [employer] defense 17 drops daily and working up to 60 drops daily (in divided doses). Serving size 30 drops. 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 Tibialis [...] JOVANNI MATTHEW on 07/26/24 Normal [facility] Absolute lymphocyte countOrd ered By: Nikia Henderson on 07-06-2024 Lymphocytes Auto (Unsp spec) [#/Vol] 1.68 10*3/uL 0.83-4.51 [facility] Absolute neutrophil countOrd ered By: Nikia Henderson on 07-06-2024 Neutrophils (Bld) [#/Vol] 4.0 10*3/uL 2.0-7.7 [facility] Absolute neutrophil count 4.0 X10^3/uL 2.0-7.7 [facility] Anion gap [Moles/Vol]Ordered By: guanakohartwickheladio Henderson on 07-06-2024 Anion gap in Serum or Plasma 10 - [facility] Anion gap in Serum or Plasma Ordered By: Nikia Henderson on 07-06-2024 Anion gap [Moles/Vol] 10 mmol/L 5-15 [facility] Automated lymphocyte count a s percentage of total leukocytesOrdered By: Nikia Henderson on 07-06-2024 Lymphocytes/100 WBC Auto (Unsp spec) 25.1 % -41 [facility] BUN/creatinine ratioOrdered By: Nikia Henderson on 07-06-2024 Urea nitrogen/Creatinine [Mass ratio] 23.7 mg/mg High 10-20 [facility] BUN/creatinine ratio 23.7 RATIO High 10-20 [facility] Basophil percentageOrdered B y: Nikia Henderson on 07-06-2024 Basophils/100 WBC (Bld) 0.9 % 0-[address] [facility] Basophil percentage 0.9 % 0-1 [facility] Calcium [Mass/Vol]Ordered By : Nikia Henderson on 07-06-2024 Serum or plasma calcium measurement (mass/volume) 8.8 mg/dL 7.6-11.0 [facility] Carbon dioxide, total [Moles /volume] in Central venous bloodOrdered By: Nikia Henderson on 07-06-2024 CO2 [Moles/Vol] 22.4 mmol/L 21.0-32.0 [facility] Carbon dioxide, total [Moles/volume] in Central venous blood 22.4 mmol/L 21.0-32.0 [facility] Chloride assayOrdered By: Cecilia Henderson on 07-06-2024 Chloride [Moles/Vol] 108 mmol/L 98-108 [facility] Chloride assay 108 mmol/L 98-108 [facility] Creatinine [Mass/Vol]Ordered By: Nikia Henderson on 07-06-2024 Serum creatinine measurement (mass/volume) 0.76 mg/dL 0.70-1.20 [facility] Eosinophil percentageOrdered By: Nikia Henderson on 07-06-2024 Eosinophils/100 WBC (Bld) 2.5 % 0-5 [facility] Eosinophil percentage 2.5 % 0-5 [facility] Erythrocyte distribution wid th (RBC) [Ratio]Ordered By: Nikia Henderson on 07-06-2024 Erythrocyte distribution width ratio 14.3 % 11.6-14.6 [facility] Erythrocyte distribution width (RBC) [Entitic vol] 53.8 fL High 35.1-43.9 [facility] Erythrocyte distribution width standard deviation 53.8 fl High 35.1-43.9 [facility] Erythrocyte distribution wid th ratioOrdered By: Nikia Henderson on 07-06-2024 Erythrocyte distribution width (RBC) [Ratio] 14.3 % 11.6-14.6 [facility] Erythrocyte distribution wid th standard deviationOrdered By: Nikia Henderson on 07-06-2024 Erythrocyte distribution width (RBC) [Ratio] 53.8 fl High 35.1-43.9 [facility] GFR/1.73 sq M.predicted viji g non-blacks MDRD (S/P/Bld) [Vol rate/Area]Ordered By: Nikia Henderson on 07-06-2024 Estimated GFR (MDRD) Non-Af Amer 80 >60 [facility] Comment on above: mL/min/1.73m2 CKD-EP I Creatinine Equation (2020) Glomerular filtration rate (GFR) estimation/1.73 sq m using serum, plasma, or whole b 80 >60 [facility] Glomerular filtration rate ( GFR) estimation/1.73 sq m using serum, plasma, or whole bOrdered By: Nikia Henderson on 07-06-2024 GFR/1.73 sq M.predicted among non-blacks MDRD (S/P/Bld) [Vol rate/Area] 80 mL/min/{1.73_m2} >60 [facility] Glucose [Mass/Vol]Ordered By : Nikia Henderson on 07-06-2024 Serum glucose measurement (mass/volume) 90 mg/dL 70-99 [facility] Hematocrit Auto (Bld) [Volum e fraction]Ordered By: Nikia Henderson on 07-06-2024 Hematocrit (Bld) [Volume fraction] 34.4 % Low 37-47 [facility] Automated blood hematocrit (percentage) 34.4 % Low 37-47 [facility] Hemoglobin measurementOrdere d By: Nikia Henderson on 07-06-2024 Hemoglobin (Bld) [Mass/Vol] 11.1 g/dL Low 12.0-15. 0 [facility] Hemoglobin measurement 11.1 g/dL Low 12.0-15.0 [facility] Immature granulocytes/100 WB C Auto (Bld)Ordered By: Nikia Henderson on 07-06-2024 Immature granulocytes/100 WBC (Bld) 1.300 % High 0.0-0.9 [facility] Comment on above: IG% - Immature Granu locytes (promyelocytes, myelocytes and metamyelocytes) > 1% indicates that a LEFT SHIFT is Present. Automated immature granulocyte percentage 1.300 % High 0.0-0.9 [facility] Lymphocytes Auto (Unsp spec) [#/Vol]Ordered By: Nikia Henderson on 07-06-2024 Lymphocytes (Bld) [#/Vol] 1.68 10*3/uL 0.83-4.5 1 [facility] Absolute lymphocyte count 1.68 X10^3/uL 0.83-4. 51 [facility] Lymphocytes/100 WBC Auto (Un sp spec)Ordered By: Nikia Henderson on 07-06-2024 Lymphocytes/100 WBC (Bld) 25.1 % [facility] Automated lymphocyte count as percentage of total leukocytes 25.1 % [facility] MCV (RBC) [Entitic vol]Order ed By: Nikia Henderson on 07-06-2024 MCV (mean corpuscular volume) determination 103.6 fL High 81-99 [facility] MCV (mean corpuscular volume ) determinationOrdered By: Nikia Henderson on 07-06-2024 MCV (RBC) [Entitic vol] 103.6 fL High 81-[address] [facility] Mean corpuscular hemoglobin (MCH) determinationOrdered By: Nikia Henderson on 07-06-2024 MCH (RBC) [Entitic mass] 33.4 pg High 27.0-32.0 [facility] Mean corpuscular hemoglobin (MCH) determination 33.4 pg High 27.0-32.0 [facility] Mean corpuscular hemoglobin concentration (MCHC) determinationOrdered By: Nikia Henderson on 07-06-2024 MCHC (RBC) [Mass/Vol] 32.3 g/dL -36 [facility] Mean corpuscular hemoglobin concentration (MCHC) determination 32.3 g/dL -36 [facility] Mean platelet volume determi nationOrdered By: Nikia Henderson on 07-06-2024 Platelet mean volume (Bld) [Entitic vol] 9.4 fL 6.2-12.0 [facility] Mean platelet volume determination 9.4 fl 6.2-12.0 [facility] Monocyte percentageOrdered B y: Nikia Henderson on 07-06-2024 Monocytes/100 WBC (Bld) 10.8 % High 0-[address] [facility] Monocyte percentage 10.8 % High 0-10 [facility] Neutrophil percentageOrdered By: Nikia Henderson on 07-06-2024 Neutrophils/100 WBC (Bld) 59.4 % 47-70 [facility] Neutrophil percentage 59.4 % 47-70 [facility] Nucleated red blood cell per centageOrdered By: Nikia Henderson on 07-06-2024 Nucleated RBC/100 WBC (Bld) [Ratio] 0 % 0-5 [facility] Nucleated red blood cell percentage 0 % 0-5 [facility] Platelet countOrdered By: Cecilia Henderson on 07-06-2024 Platelets (Bld) [#/Vol] 299 10*3/uL 150-450 [facility] Platelet count 299 K/mm3 150-450 [facility] Potassium (Unsp spec) [Mass/ Vol]Ordered By: Nikia Henderson on 07-06-2024 Potassium [Moles/Vol] 4.3 mmol/L 3.3-5.1 [facility] Potassium measurement (mass/volume) 4.3 mmol/L 3.3-5.1 [facility] Potassium measurement (mass/ volume)Ordered By: Nikia Henderson on 07-06-2024 Potassium (Unsp spec) [Mass/Vol] 4.3 mmol/L 3.3-5.1 [facility] RBC Auto (Bld) [#/Vol]Ordere d By: Nikia Henderson on 07-06-2024 RBC (Bld) [#/Vol] 3.32 10*6/uL Low 4.2-5.4 [facility] Automated blood erythrocyte count 3.32 M/mm3 Low 4.2-5.4 [facility] Serum creatinine measurement (mass/volume)Ordered By: Nikia Henderson on 07-06-2024 Creatinine [Mass/Vol] 0.76 mg/dL 0.70-1.20 [facility] Serum glucose measurement (m ass/volume)Ordered By: Nikia Henderson on 07-06-2024 Glucose [Mass/Vol] 90 mg/dL 70-99 [facility] Serum or plasma calcium gianluca urement (mass/volume)Ordered By: Nikia Henderson on 07-06-2024 Calcium [Mass/Vol] 8.8 mg/dL 7.6-11.0 [facility] Serum or plasma urea nitroge n measurement (mass/volume)Ordered By: Nikia Henderson on 07-06-2024 Urea nitrogen [Mass/Vol] 18 mg/dL 4-19 [facility] Sodium levelOrdered By: Catalina Henderson on 07-06-2024 Sodium [Moles/Vol] 140 mmol/L 133-145 [facility] Sodium level 140 mmol/L 133-145 [facility] Urea nitrogen [Mass/Vol]Orde red By: Nikia Henderson on 07-06-2024 Serum or plasma urea nitrogen measurement (mass/volume) 18 mg/dL 4-19 [facility] White blood cell (WBC) count Ordered By: Nikia Henderson on 07-06-2024 WBC (Bld) [#/Vol] 6.7 10*3/uL 4.4-11.0 [facility] White blood cell (WBC) count 6.7 K/mm3 4.4-11.0 [facility] Absolute lymphocyte countOrd ered By: Audra Drake on 06-29-2024 Lymphocytes Auto (Unsp spec) [#/Vol] 1.28 10*3/uL 0.83-4.51 [facility] Absolute neutrophil countOrd ered By: Audra Drake on 06-29-2024 Neutrophils (Bld) [#/Vol] 4.0 10*3/uL 2.0-7.7 [facility] Absolute neutrophil count 4.0 X10^3/uL 2.0-7.7 [facility] Anion gap [Moles/Vol]Ordered By: Audra Drake on 06-29-2024 Anion gap in Serum or Plasma 10 5-15 [facility] Anion gap in Serum or Plasma Ordered By: Audra Drake on 06-29-2024 Anion gap [Moles/Vol] 10 mmol/L 5-15 [facility] Automated lymphocyte count a s percentage of total leukocytesOrdered By: Audra Drake on 06-29-2024 Lymphocytes/100 WBC Auto (Unsp spec) 20.1 % 19-41 [facility] BUN/creatinine ratioOrdered By: Audra Drake on 06-29-2024 Urea nitrogen/Creatinine [Mass ratio] 18.5 mg/mg 10-20 [facility] BUN/creatinine ratio 18.5 RATIO 10-20 [facility] Basophil percentageOrdered B y: Audra Drake on 06-29-2024 Basophils/100 WBC (Bld) 0.9 % 0-[address] [facility] Basophil percentage 0.9 % 0-1 [facility] Calcium [Mass/Vol]Ordered By : Audra Drake on 06-29-2024 Serum or plasma calcium measurement (mass/volume) 9.0 mg/dL 7.6-11.0 [facility] Carbon dioxide, total [Moles /volume] in Central venous bloodOrdered By: Audra Drake on 06-29-2024 CO2 [Moles/Vol] 21.5 mmol/L 21.0-32.0 [facility] Carbon dioxide, total [Moles/volume] in Central venous blood 21.5 mmol/L 21.0-32.0 [facility] Chloride assayOrdered By: Dimitris Drake on 06-29-2024 Chloride [Moles/Vol] 109 mmol/L High 98-108 [facility] Chloride assay 109 mmol/L High 98-108 [facility] Creatinine [Mass/Vol]Ordered By: Audra Drake on 06-29-2024 Serum creatinine measurement (mass/volume) 0.65 mg/dL Low 0.70-1.20 [facility] Eosinophil percentageOrdered By: Audra Drake on 06-29-2024 Eosinophils/100 WBC (Bld) 2.5 % 0-5 [facility] Eosinophil percentage 2.5 % 0-5 [facility] Erythrocyte distribution wid th (RBC) [Ratio]Ordered By: Audra Drake on 06-29-2024 Erythrocyte distribution width ratio 14.0 % 11.6-14.6 [facility] Erythrocyte distribution width (RBC) [Entitic vol] 51.9 fL High 35.1-43.9 [facility] Erythrocyte distribution width standard deviation 51.9 fl High 35.1-43.9 [facility] Erythrocyte distribution wid th ratioOrdered By: Audra Drake on 06-29-2024 Erythrocyte distribution width (RBC) [Ratio] 14.0 % 11.6-14.6 [facility] Erythrocyte distribution wid th standard deviationOrdered By: Audra Drake on 06-29-2024 Erythrocyte distribution width (RBC) [Ratio] 51.9 fl High 35.1-43.9 [facility] GFR/1.73 sq M.predicted viji g non-blacks MDRD (S/P/Bld) [Vol rate/Area]Ordered By: Audra Drake on 06-29-2024 Estimated GFR (MDRD) Non-Af Amer 90 >60 [facility] Comment on above: mL/min/1.73m2 CKD-EP I Creatinine Equation (2020) Glomerular filtration rate (GFR) estimation/1.73 sq m using serum, plasma, or whole b 90 >60 [facility] Glomerular filtration rate ( GFR) estimation/1.73 sq m using serum, plasma, or whole bOrdered By: Audra Drake on 06-29-2024 GFR/1.73 sq M.predicted among non-blacks MDRD (S/P/Bld) [Vol rate/Area] 90 mL/min/{1.73_m2} >60 [facility] Glucose [Mass/Vol]Ordered By : Audra Drake on 06-29-2024 Serum glucose measurement (mass/volume) 84 mg/dL 70-99 [facility] Hematocrit Auto (Bld) [Volum e fraction]Ordered By: Audra Drake on 06-29-2024 Hematocrit (Bld) [Volume fraction] 35.7 % Low 37-47 [facility] Automated blood hematocrit (percentage) 35.7 % Low 37-47 [facility] Hemoglobin measurementOrdere d By: Audra Drake on 06-29-2024 Hemoglobin (Bld) [Mass/Vol] 11.5 g/dL Low 12.0-15. 0 [facility] Hemoglobin measurement 11.5 g/dL Low 12.0-15.0 [facility] Immature granulocytes/100 WB C Auto (Bld)Ordered By: Audra Drake on 06-29-2024 Immature granulocytes/100 WBC (Bld) 1.100 % High 0.0-0.9 [facility] Comment on above: IG% - Immature Granu locytes (promyelocytes, myelocytes and metamyelocytes) > 1% indicates that a LEFT SHIFT is Present. Automated immature granulocyte percentage 1.100 % High 0.0-0.9 [facility] Lymphocytes Auto (Unsp spec) [#/Vol]Ordered By: Audra Drake on 06-29-2024 Lymphocytes (Bld) [#/Vol] 1.28 10*3/uL 0.83-4.5 1 [facility] Absolute lymphocyte count 1.28 X10^3/uL 0.83-4. 51 [facility] Lymphocytes/100 WBC Auto (Un sp spec)Ordered By: Audra Drake on 06-29-2024 Lymphocytes/100 WBC (Bld) 20.1 % - [facility] Automated lymphocyte count as percentage of total leukocytes 20.1 % - [facility] MCV (RBC) [Entitic vol]Order ed By: Audra Drake on 06-29-2024 MCV (mean corpuscular volume) determination 99.7 fL High 81-99 [facility] MCV (mean corpuscular volume ) determinationOrdered By: Audra Drake on 06-29-2024 MCV (RBC) [Entitic vol] 99.7 fL High 81-[address] [facility] Mean corpuscular hemoglobin (MCH) determinationOrdered By: Audra Drake on 06-29-2024 MCH (RBC) [Entitic mass] 32.1 pg High 27.0-32.0 [facility] Mean corpuscular hemoglobin (MCH) determination 32.1 pg High 27.0-32.0 [facility] Mean corpuscular hemoglobin concentration (MCHC) determinationOrdered By: Audra Drake on 06-29-2024 MCHC (RBC) [Mass/Vol] 32.2 g/dL 32-36 [facility] Mean corpuscular hemoglobin concentration (MCHC) determination 32.2 g/dL -36 [facility] Mean platelet volume determi nationOrdered By: Audra Drake on 06-29-2024 Platelet mean volume (Bld) [Entitic vol] 9.5 fL 6.2-12.0 [facility] Mean platelet volume determination 9.5 fl 6.2-12.0 [facility] Monocyte percentageOrdered B y: Audra Drake on 06-29-2024 Monocytes/100 WBC (Bld) 12.3 % High 0-[address] [facility] Monocyte percentage 12.3 % High 0-10 [facility] Neutrophil percentageOrdered By: Audra Drake on 06-29-2024 Neutrophils/100 WBC (Bld) 63.1 % 47-70 [facility] Neutrophil percentage 63.1 % 47-70 [facility] Nucleated red blood cell per centageOrdered By: Audra Drake on 06-29-2024 Nucleated RBC/100 WBC (Bld) [Ratio] 0 % 0-5 [facility] Nucleated red blood cell percentage 0 % 0-5 [facility] Platelet countOrdered By: Dimitris Drake on 06-29-2024 Platelets (Bld) [#/Vol] 307 10*3/uL 150-450 [facility] Platelet count 307 K/mm3 150-450 [facility] Potassium (Unsp spec) [Mass/ Vol]Ordered By: Audra Drake on 06-29-2024 Potassium [Moles/Vol] 4.4 mmol/L 3.3-5.1 [facility] Potassium measurement (mass/volume) 4.4 mmol/L 3.3-5.1 [facility] Potassium measurement (mass/ volume)Ordered By: Audra Drake on 06-29-2024 Potassium (Unsp spec) [Mass/Vol] 4.4 mmol/L 3.3-5.1 [facility] RBC Auto (Bld) [#/Vol]Ordere d By: Audra Drake on 06-29-2024 RBC (Bld) [#/Vol] 3.58 10*6/uL Low 4.2-5.4 [facility] Automated blood erythrocyte count 3.58 M/mm3 Low 4.2-5.4 [facility] Serum creatinine measurement (mass/volume)Ordered By: Audra Drake on 06-29-2024 Creatinine [Mass/Vol] 0.65 mg/dL Low 0.70-1.20 [facility] Serum glucose measurement (m ass/volume)Ordered By: Audra Drake on 06-29-2024 Glucose [Mass/Vol] 84 mg/dL 70-99 [facility] Serum or plasma calcium gianluca urement (mass/volume)Ordered By: Audra Drake on 06-29-2024 Calcium [Mass/Vol] 9.0 mg/dL 7.6-11.0 [facility] Serum or plasma urea nitroge n measurement (mass/volume)Ordered By: Audra Drake on 06-29-2024 Urea nitrogen [Mass/Vol] 12 mg/dL - [facility] Sodium levelOrdered By: Cony Drake on 06-29-2024 Sodium [Moles/Vol] 140 mmol/L 133-145 [facility] Sodium level 140 mmol/L 133-145 [facility] Urea nitrogen [Mass/Vol]Orde red By: Audra Drake on 06-29-2024 Serum or plasma urea nitrogen measurement (mass/volume) 12 mg/dL - [facility] White blood cell (WBC) count Ordered By: Audra Drake on 06-29-2024 WBC (Bld) [#/Vol] 6.4 10*3/uL 4.4-11.0 [facility] White blood cell (WBC) count 6.4 K/mm3 4.4-11.0 [facility] Absolute lymphocyte countOrd ered By: Audra Drake on 06-22-2024 Lymphocytes Auto (Unsp spec) [#/Vol] 1.15 10*3/uL 0.83-4.51 [facility] Absolute neutrophil countOrd ered By: Audra Drake on 06-22-2024 Neutrophils (Bld) [#/Vol] 4.9 10*3/uL 2.0-7.7 [facility] Absolute neutrophil count 4.9 X10^3/uL 2.0-7.7 [facility] Anion gap [Moles/Vol]Ordered By: Audra Drake on 06-22-2024 Anion gap in Serum or Plasma 11 5-15 [facility] Anion gap in Serum or Plasma Ordered By: Audra Drake on 06-22-2024 Anion gap [Moles/Vol] 11 mmol/L 5-15 [facility] Automated lymphocyte count a s percentage of total leukocytesOrdered By: Audra Drake on 06-22-2024 Lymphocytes/100 WBC Auto (Unsp spec) 16.2 % Low 19-41 [facility] BUN/creatinine ratioOrdered By: Audra Drake on 06-22-2024 Urea nitrogen/Creatinine [Mass ratio] 18.7 mg/mg 10-20 [facility] BUN/creatinine ratio 18.7 RATIO 10-20 [facility] Basophil percentageOrdered B y: Audra Drake on 06-22-2024 Basophils/100 WBC (Bld) 0.6 % 0-[address] [facility] Basophil percentage 0.6 % 0-1 [facility] Calcium [Mass/Vol]Ordered By : Audra Drake on 06-22-2024 Serum or plasma calcium measurement (mass/volume) 8.6 mg/dL 7.6-11.0 [facility] Carbon dioxide, total [Moles /volume] in Central venous bloodOrdered By: Audra Drake on 06-22-2024 CO2 [Moles/Vol] 19.5 mmol/L Low 21.0-32.0 [facility] Carbon dioxide, total [Moles/volume] in Central venous blood 19.5 mmol/L Low 21.0-32.0 [facility] Chloride assayOrdered By: Dimitris Drake on 06-22-2024 Chloride [Moles/Vol] 107 mmol/L 98-108 [facility] Chloride assay 107 mmol/L 98-108 [facility] Creatinine [Mass/Vol]Ordered By: Audra Drake on 06-22-2024 Serum creatinine measurement (mass/volume) 0.78 mg/dL 0.70-1.20 [facility] Eosinophil percentageOrdered By: Audra Drake on 06-22-2024 Eosinophils/100 WBC (Bld) 2.3 % 0-5 [facility] Eosinophil percentage 2.3 % 0-5 [facility] Erythrocyte distribution wid th (RBC) [Ratio]Ordered By: Audra Drake on 06-22-2024 Erythrocyte distribution width ratio 13.9 % 11.6-14.6 [facility] Erythrocyte distribution width (RBC) [Entitic vol] 51.1 fL High 35.1-43.9 [facility] Erythrocyte distribution width standard deviation 51.1 fl High 35.1-43.9 [facility] Erythrocyte distribution wid th ratioOrdered By: Audra Drake on 06-22-2024 Erythrocyte distribution width (RBC) [Ratio] 13.9 % 11.6-14.6 [facility] Erythrocyte distribution wid th standard deviationOrdered By: Audra Drake on 06-22-2024 Erythrocyte distribution width (RBC) [Ratio] 51.1 fl High 35.1-43.9 [facility] GFR/1.73 sq M.predicted viji g non-blacks MDRD (S/P/Bld) [Vol rate/Area]Ordered By: Audra Drake on 06-22-2024 Estimated GFR (MDRD) Non-Af Amer 78 >60 [facility] Comment on above: mL/min/1.73m2 CKD-EP I Creatinine Equation (2020) Glomerular filtration rate (GFR) estimation/1.73 sq m using serum, plasma, or whole b 78 >60 [facility] Glomerular filtration rate ( GFR) estimation/1.73 sq m using serum, plasma, or whole bOrdered By: Audra Drake on 06-22-2024 GFR/1.73 sq M.predicted among non-blacks MDRD (S/P/Bld) [Vol rate/Area] 78 mL/min/{1.73_m2} >60 [facility] Glucose [Mass/Vol]Ordered By : Audra Drake on 06-22-2024 Serum glucose measurement (mass/volume) 91 mg/dL 70-99 [facility] Hematocrit Auto (Bld) [Volum e fraction]Ordered By: Audra Drake on 06-22-2024 Hematocrit (Bld) [Volume fraction] 35.7 % Low 37-47 [facility] Automated blood hematocrit (percentage) 35.7 % Low 37-47 [facility] Hemoglobin measurementOrdere d By: Audra Drake on 06-22-2024 Hemoglobin (Bld) [Mass/Vol] 11.6 g/dL Low 12.0-15. 0 [facility] Hemoglobin measurement 11.6 g/dL Low 12.0-15.0 [facility] Immature granulocytes/100 WB C Auto (Bld)Ordered By: Audra Drake on 06-22-2024 Immature granulocytes/100 WBC (Bld) 1.100 % High 0.0-0.9 [facility] Comment on above: IG% - Immature Granu locytes (promyelocytes, myelocytes and metamyelocytes) > 1% indicates that a LEFT SHIFT is Present. Automated immature granulocyte percentage 1.100 % High 0.0-0.9 [facility] Lymphocytes Auto (Unsp spec) [#/Vol]Ordered By: Audra Drkae on 06-22-2024 Lymphocytes (Bld) [#/Vol] 1.15 10*3/uL 0.83-4.5 1 [facility] Absolute lymphocyte count 1.15 X10^3/uL 0.83-4. 51 [facility] Lymphocytes/100 WBC Auto (Un sp spec)Ordered By: Audra Drake on 06-22-2024 Lymphocytes/100 WBC (Bld) 16.2 % Low 19-41 [facility] Automated lymphocyte count as percentage of total leukocytes 16.2 % Low 19-41 [facility] MCV (RBC) [Entitic vol]Order ed By: Audra Drake on 06-22-2024 MCV (mean corpuscular volume) determination 100.3 fL High 81-99 [facility] MCV (mean corpuscular volume ) determinationOrdered By: Audra Drake on 06-22-2024 MCV (RBC) [Entitic vol] 100.3 fL High 81-[address] [facility] Mean corpuscular hemoglobin (MCH) determinationOrdered By: Audra Drake on 06-22-2024 MCH (RBC) [Entitic mass] 32.6 pg High 27.0-32.0 [facility] Mean corpuscular hemoglobin (MCH) determination 32.6 pg High 27.0-32.0 [facility] Mean corpuscular hemoglobin concentration (MCHC) determinationOrdered By: Audra Drake on 06-22-2024 MCHC (RBC) [Mass/Vol] 32.5 g/dL 32-36 [facility] Mean corpuscular hemoglobin concentration (MCHC) determination 32.5 g/dL -36 [facility] Mean platelet volume determi nationOrdered By: Audra Drake on 06-22-2024 Platelet mean volume (Bld) [Entitic vol] 9.9 fL 6.2-12.0 [facility] Mean platelet volume determination 9.9 fl 6.2-12.0 [facility] Monocyte percentageOrdered B y: Audra Drake on 06-22-2024 Monocytes/100 WBC (Bld) 11.0 % High 0-[address] [facility] Monocyte percentage 11.0 % High 0-10 [facility] Neutrophil percentageOrdered By: Audra Drake on 06-22-2024 Neutrophils/100 WBC (Bld) 68.8 % 47-70 [facility] Neutrophil percentage 68.8 % 47-70 [facility] Nucleated red blood cell per centageOrdered By: Audra Drake on 06-22-2024 Nucleated RBC/100 WBC (Bld) [Ratio] 0 % 0-5 [facility] Nucleated red blood cell percentage 0 % 0-5 [facility] Platelet countOrdered By: Dimitris Drake on 06-22-2024 Platelets (Bld) [#/Vol] 235 10*3/uL 150-450 [facility] Platelet count 235 K/mm3 150-450 [facility] Potassium (Unsp spec) [Mass/ Vol]Ordered By: Audra Drake on 06-22-2024 Potassium [Moles/Vol] 4.4 mmol/L 3.3-5.1 [facility] Potassium measurement (mass/volume) 4.4 mmol/L 3.3-5.1 [facility] Potassium measurement (mass/ volume)Ordered By: Audra Drake on 06-22-2024 Potassium (Unsp spec) [Mass/Vol] 4.4 mmol/L 3.3-5.1 [facility] RBC Auto (Bld) [#/Vol]Ordere d By: Audra Drake on 06-22-2024 RBC (Bld) [#/Vol] 3.56 10*6/uL Low 4.2-5.4 [facility] Automated blood erythrocyte count 3.56 M/mm3 Low 4.2-5.4 [facility] Serum creatinine measurement (mass/volume)Ordered By: Audra Drake on 06-22-2024 Creatinine [Mass/Vol] 0.78 mg/dL 0.70-1.20 [facility] Serum glucose measurement (m ass/volume)Ordered By: Audra Drake on 06-22-2024 Glucose [Mass/Vol] 91 mg/dL 70-99 [facility] Serum or plasma calcium gianluca urement (mass/volume)Ordered By: Audra Drake on 06-22-2024 Calcium [Mass/Vol] 8.6 mg/dL 7.6-11.0 [facility] Serum or plasma urea nitroge n measurement (mass/volume)Ordered By: Audra Drake on 06-22-2024 Urea nitrogen [Mass/Vol] 15 mg/dL 4- [facility] Sodium levelOrdered By: Cony Drake on 06-22-2024 Sodium [Moles/Vol] 138 mmol/L 133-145 [facility] Sodium level 138 mmol/L 133-145 [facility] Urea nitrogen [Mass/Vol]Orde red By: Audra Drake on 06-22-2024 Serum or plasma urea nitrogen measurement (mass/volume) 15 mg/dL 4-19 [facility] White blood cell (WBC) count Ordered By: Audra Drake on 06-22-2024 WBC (Bld) [#/Vol] 7.1 10*3/uL 4.4-11.0 [facility] White blood cell (WBC) count 7.1 K/mm3 4.4-11.0 [facility] Absolute lymphocyte countOrd ered By: Nikia Henderson on 06-15-2024 Lymphocytes Auto (Unsp spec) [#/Vol] 1.51 10*3/uL 0.83-4.51 [facility] Absolute neutrophil countOrd ered By: Nikia Henderson on 06-15-2024 Neutrophils (Bld) [#/Vol] 2.2 10*3/uL 2.0-7.7 [facility] Absolute neutrophil count 2.2 X10^3/uL 2.0-7.7 [facility] Anion gap [Moles/Vol]Ordered By: Nikia Henderson on 06-15-2024 Anion gap in Serum or Plasma 11 5-15 [facility] Anion gap in Serum or Plasma Ordered By: Nikia Henderson on 06-15-2024 Anion gap [Moles/Vol] 11 mmol/L 5-15 [facility] Automated lymphocyte count a s percentage of total leukocytesOrdered By: Nikia Henderson on 06-15-2024 Lymphocytes/100 WBC Auto (Unsp spec) 34.6 % 19-41 [facility] BUN/creatinine ratioOrdered By: Nikia Henderson on 06-15-2024 Urea nitrogen/Creatinine [Mass ratio] 22.9 mg/mg High 10-20 [facility] BUN/creatinine ratio 22.9 RATIO High 10-20 [facility] Basophil percentageOrdered B y: Nikia Henderson on 06-15-2024 Basophils/100 WBC (Bld) 0.5 % 0-[address] [facility] Basophil percentage 0.5 % 0-1 [facility] Calcium [Mass/Vol]Ordered By : Nikia Henderson on 06-15-2024 Serum or plasma calcium measurement (mass/volume) 8.7 mg/dL 7.6-11.0 [facility] Carbon dioxide, total [Moles /volume] in Central venous bloodOrdered By: Nikia Henderson on 06-15-2024 CO2 [Moles/Vol] 20.2 mmol/L Low 21.0-32.0 [facility] Carbon dioxide, total [Moles/volume] in Central venous blood 20.2 mmol/L Low 21.0-32.0 [facility] Chloride assayOrdered By: Cecilia Henderson on 06-15-2024 Chloride [Moles/Vol] 111 mmol/L High 98-108 [facility] Chloride assay 111 mmol/L High 98-108 [facility] Creatinine [Mass/Vol]Ordered By: Nikia Henderson on 06-15-2024 Serum creatinine measurement (mass/volume) 0.65 mg/dL Low 0.70-1.20 [facility] Eosinophil percentageOrdered By: Nikia Henderson on 06-15-2024 Eosinophils/100 WBC (Bld) 2.1 % 0-5 [facility] Eosinophil percentage 2.1 % 0-5 [facility] Erythrocyte distribution wid th (RBC) [Ratio]Ordered By: Nikia Henderson on 06-15-2024 Erythrocyte distribution width ratio 14.2 % 11.6-14.6 [facility] Erythrocyte distribution width (RBC) [Entitic vol] 52.7 fL High 35.1-43.9 [facility] Erythrocyte distribution width standard deviation 52.7 fl High 35.1-43.9 [facility] Erythrocyte distribution wid th ratioOrdered By: Nikia Henderson on 06-15-2024 Erythrocyte distribution width (RBC) [Ratio] 14.2 % 11.6-14.6 [facility] Erythrocyte distribution wid th standard deviationOrdered By: Nikia Henderson on 06-15-2024 Erythrocyte distribution width (RBC) [Ratio] 52.7 fl High 35.1-43.9 [facility] GFR/1.73 sq M.predicted viji g non-blacks MDRD (S/P/Bld) [Vol rate/Area]Ordered By: Nikia Henderson on 06-15-2024 Estimated GFR (MDRD) Non-Af Amer 90 >60 [facility] Comment on above: mL/min/1.73m2 CKD-EP I Creatinine Equation (2020) Glomerular filtration rate (GFR) estimation/1.73 sq m using serum, plasma, or whole b 90 >60 [facility] Glomerular filtration rate ( GFR) estimation/1.73 sq m using serum, plasma, or whole bOrdered By: Nikia Henderson on 06-15-2024 GFR/1.73 sq M.predicted among non-blacks MDRD (S/P/Bld) [Vol rate/Area] 90 mL/min/{1.73_m2} >60 [facility] Glucose [Mass/Vol]Ordered By : Nikia Henderson on 06-15-2024 Serum glucose measurement (mass/volume) 83 mg/dL 70-99 [facility] Hematocrit Auto (Bld) [Volum e fraction]Ordered By: Nikia Henderson on 06-15-2024 Hematocrit (Bld) [Volume fraction] 39.1 % 37-47 [facility] Automated blood hematocrit (percentage) 39.1 % 37-47 [facility] Hemoglobin measurementOrdere d By: Nikia Henderson on 06-15-2024 Hemoglobin (Bld) [Mass/Vol] 12.4 g/dL 12.0-15. 0 [facility] Hemoglobin measurement 12.4 g/dL 12.0-15.0 [facility] Immature granulocytes/100 WB C Auto (Bld)Ordered By: Nikia Henderson on 06-15-2024 Immature granulocytes/100 WBC (Bld) 0.700 % 0.0-0.9 [facility] Comment on above: IG% - Immature Granu locytes (promyelocytes, myelocytes and metamyelocytes) > 1% indicates that a LEFT SHIFT is Present. Automated immature granulocyte percentage 0.700 % 0.0-0.9 [facility] Lymphocytes Auto (Unsp spec) [#/Vol]Ordered By: Nikia Henderson on 06-15-2024 Lymphocytes (Bld) [#/Vol] 1.51 10*3/uL 0.83-4.5 1 [facility] Absolute lymphocyte count 1.51 X10^3/uL 0.83-4. 51 [facility] Lymphocytes/100 WBC Auto (Un sp spec)Ordered By: Nikia Henderson on 06-15-2024 Lymphocytes/100 WBC (Bld) 34.6 % [facility] Automated lymphocyte count as percentage of total leukocytes 34.6 % [facility] MCV (RBC) [Entitic vol]Order ed By: Nikia Henderson on 06-15-2024 MCV (mean corpuscular volume) determination 100.8 fL High 81-99 [facility] MCV (mean corpuscular volume ) determinationOrdered By: Nikia Henderson on 06-15-2024 MCV (RBC) [Entitic vol] 100.8 fL High 81-99 [facility] Mean corpuscular hemoglobin (MCH) determinationOrdered By: Nikia Henderson on 06-15-2024 MCH (RBC) [Entitic mass] 32.0 pg 27.0-32.0 [facility] Mean corpuscular hemoglobin (MCH) determination 32.0 pg 27.0-32.0 [facility] Mean corpuscular hemoglobin concentration (MCHC) determinationOrdered By: Nikia Henderson on 06-15-2024 MCHC (RBC) [Mass/Vol] 31.7 g/dL Low 32-36 [facility] Mean corpuscular hemoglobin concentration (MCHC) determination 31.7 g/dL Low 32-36 [facility] Mean platelet volume determi nationOrdered By: Nikia Henderson on 06-15-2024 Platelet mean volume (Bld) [Entitic vol] 9.6 fL 6.2-12.0 [facility] Mean platelet volume determination 9.6 fl 6.2-12.0 [facility] Monocyte percentageOrdered B y: Nikia Henderson on 06-15-2024 Monocytes/100 WBC (Bld) 11.5 % High 0-[address] [facility] Monocyte percentage 11.5 % High 0-10 [facility] Neutrophil percentageOrdered By: Nikia Henderson on 06-15-2024 Neutrophils/100 WBC (Bld) 50.6 % 47-70 [facility] Neutrophil percentage 50.6 % 47-70 [facility] Nucleated red blood cell per centageOrdered By: Nikia Henderson on 06-15-2024 Nucleated RBC/100 WBC (Bld) [Ratio] 0 % 0-5 [facility] Nucleated red blood cell percentage 0 % 0-5 [facility] Platelet countOrdered By: Cecilia guanakoterra Henderson on 06-15-2024 Platelets (Bld) [#/Vol] 215 10*3/uL 150-450 [facility] Platelet count 215 K/mm3 150-450 [facility] Potassium (Unsp spec) [Mass/ Vol]Ordered By: Nikia Henderson on 06-15-2024 Potassium [Moles/Vol] 4.7 mmol/L 3.3-5.1 [facility] Comment on above: Hemolysis present, R esults could be affected. Potassium measurement (mass/volume) 4.7 mmol/L 3.3-5.1 [facility] Potassium measurement (mass/ volume)Ordered By: Nikia Henderson on 06-15-2024 Potassium (Unsp spec) [Mass/Vol] 4.7 mmol/L 3.3-5.1 [facility] RBC Auto (Bld) [#/Vol]Ordere d By: Nikia Henderson on 06-15-2024 RBC (Bld) [#/Vol] 3.88 10*6/uL Low 4.2-5.4 [facility] Automated blood erythrocyte count 3.88 M/mm3 Low 4.2-5.4 [facility] Serum creatinine measurement (mass/volume)Ordered By: Nikia Henderson on 06-15-2024 Creatinine [Mass/Vol] 0.65 mg/dL Low 0.70-1.20 [facility] Serum glucose measurement (m ass/volume)Ordered By: Nikia Henderson on 06-15-2024 Glucose [Mass/Vol] 83 mg/dL 70-99 [facility] Serum or plasma calcium gianluca urement (mass/volume)Ordered By: Nikia Henderson on 06-15-2024 Calcium [Mass/Vol] 8.7 mg/dL 7.6-11.0 [facility] Serum or plasma urea nitroge n measurement (mass/volume)Ordered By: Nikia Henderson on 06-15-2024 Urea nitrogen [Mass/Vol] 15 mg/dL - [facility] Sodium levelOrdered By: Catalina Henderson on 06-15-2024 Sodium [Moles/Vol] 142 mmol/L 133-145 [facility] Sodium level 142 mmol/L 133-145 [facility] Urea nitrogen [Mass/Vol]Orde red By: Nikia Henderson on 06-15-2024 Serum or plasma urea nitrogen measurement (mass/volume) 15 mg/dL 4- [facility] White blood cell (WBC) count Ordered By: Nikia Henderson on 06-15-2024 WBC (Bld) [#/Vol] 4.4 10*3/uL 4.4-11.0 [facility] White blood cell (WBC) count 4.4 K/mm3 4.4-11.0 [facility] Absolute lymphocyte countOrd ered By: Nikia Henderson on 06-08-2024 Lymphocytes Auto (Unsp spec) [#/Vol] 1.41 10*3/uL 0.83-4.51 [facility] Absolute neutrophil countOrd ered By: Nikia Henderson on 06-08-2024 Neutrophils (Bld) [#/Vol] 3.7 10*3/uL 2.0-7.7 [facility] Absolute neutrophil count 3.7 X10^3/uL 2.0-7.7 [facility] Anion gap [Moles/Vol]Ordered By: Nikia Henderson on 06-08-2024 Anion gap in Serum or Plasma 10 5-15 [facility] Anion gap in Serum or Plasma Ordered By: Nikia Henderson on 06-08-2024 Anion gap [Moles/Vol] 10 mmol/L 5-15 [facility] Automated lymphocyte count a s percentage of total leukocytesOrdered By: Nikia Henderson on 06-08-2024 Lymphocytes/100 WBC Auto (Unsp spec) 23.7 % 19-41 [facility] BUN/creatinine ratioOrdered By: Nikia Henderson on 06-08-2024 Urea nitrogen/Creatinine [Mass ratio] 29.4 mg/mg High 10-20 [facility] BUN/creatinine ratio 29.4 RATIO High 10-20 [facility] Basophil percentageOrdered B y: Nikia Henderson on 06-08-2024 Basophils/100 WBC (Bld) 0.3 % 0-[address] [facility] Basophil percentage 0.3 % 0-1 [facility] Calcium [Mass/Vol]Ordered By : Nikia Henderson on 06-08-2024 Serum or plasma calcium measurement (mass/volume) 8.9 mg/dL 7.6-11.0 [facility] Carbon dioxide, total [Moles /volume] in Central venous bloodOrdered By: Nikia Henderson on 06-08-2024 CO2 [Moles/Vol] 21.5 mmol/L 21.0-32.0 [facility] Carbon dioxide, total [Moles/volume] in Central venous blood 21.5 mmol/L 21.0-32.0 [facility] Chloride assayOrdered By: Cecilia Henderson on 06-08-2024 Chloride [Moles/Vol] 110 mmol/L High 98-108 [facility] Chloride assay 110 mmol/L High 98-108 [facility] Creatinine [Mass/Vol]Ordered By: Nikia Henderson on 06-08-2024 Serum creatinine measurement (mass/volume) 0.68 mg/dL Low 0.70-1.20 [facility] Eosinophil percentageOrdered By: Nikia Henderson on 06-08-2024 Eosinophils/100 WBC (Bld) 3.2 % 0-5 [facility] Eosinophil percentage 3.2 % 0-5 [facility] Erythrocyte distribution wid th (RBC) [Ratio]Ordered By: Nikia Henderson on 06-08-2024 Erythrocyte distribution width ratio 14.5 % 11.6-14.6 [facility] Erythrocyte distribution width (RBC) [Entitic vol] 53.2 fL High 35.1-43.9 [facility] Erythrocyte distribution width standard deviation 53.2 fl High 35.1-43.9 [facility] Erythrocyte distribution wid th ratioOrdered By: Nikia Henderson on 06-08-2024 Erythrocyte distribution width (RBC) [Ratio] 14.5 % 11.6-14.6 [facility] Erythrocyte distribution wid th standard deviationOrdered By: Nikia Henderson on 06-08-2024 Erythrocyte distribution width (RBC) [Ratio] 53.2 fl High 35.1-43.9 [facility] GFR/1.73 sq M.predicted viji g non-blacks MDRD (S/P/Bld) [Vol rate/Area]Ordered By: Nikia Henderson on 06-08-2024 Estimated GFR (MDRD) Non-Af Amer 89 >60 [facility] Comment on above: mL/min/1.73m2 CKD-EP I Creatinine Equation (2020) Glomerular filtration rate (GFR) estimation/1.73 sq m using serum, plasma, or whole b 89 >60 [facility] Glomerular filtration rate ( GFR) estimation/1.73 sq m using serum, plasma, or whole bOrdered By: Nikia Henderson on 06-08-2024 GFR/1.73 sq M.predicted among non-blacks MDRD (S/P/Bld) [Vol rate/Area] 89 mL/min/{1.73_m2} >60 [facility] Glucose [Mass/Vol]Ordered By : Nikia Henderson on 06-08-2024 Serum glucose measurement (mass/volume) 85 mg/dL 70-99 [facility] Hematocrit Auto (Bld) [Volum e fraction]Ordered By: Nikia Henderson on 06-08-2024 Hematocrit (Bld) [Volume fraction] 35.9 % Low 37-47 [facility] Automated blood hematocrit (percentage) 35.9 % Low 37-47 [facility] Hemoglobin measurementOrdere d By: Nikia Henderson on 06-08-2024 Hemoglobin (Bld) [Mass/Vol] 11.5 g/dL Low 12.0-15. 0 [facility] Hemoglobin measurement 11.5 g/dL Low 12.0-15.0 [facility] Immature granulocytes/100 WB C Auto (Bld)Ordered By: Nikia Henderson on 06-08-2024 Immature granulocytes/100 WBC (Bld) 0.300 % 0.0-0.9 [facility] Comment on above: IG% - Immature Granu locytes (promyelocytes, myelocytes and metamyelocytes) > 1% indicates that a LEFT SHIFT is Present. Automated immature granulocyte percentage 0.300 % 0.0-0.9 [facility] Lymphocytes Auto (Unsp spec) [#/Vol]Ordered By: Nikia Henderson on 06-08-2024 Lymphocytes (Bld) [#/Vol] 1.41 10*3/uL 0.83-4.5 1 [facility] Absolute lymphocyte count 1.41 X10^3/uL 0.83-4. 51 [facility] Lymphocytes/100 WBC Auto (Un sp spec)Ordered By: Nikia Henderson on 06-08-2024 Lymphocytes/100 WBC (Bld) 23.7 % [facility] Automated lymphocyte count as percentage of total leukocytes 23.7 % [facility] MCV (RBC) [Entitic vol]Order ed By: Nikia Henderson on 06-08-2024 MCV (mean corpuscular volume) determination 100.3 fL High 81-99 [facility] MCV (mean corpuscular volume ) determinationOrdered By: Nikia Henderson on 06-08-2024 MCV (RBC) [Entitic vol] 100.3 fL High 81-[address] [facility] Mean corpuscular hemoglobin (MCH) determinationOrdered By: Nikia Henderson on 06-08-2024 MCH (RBC) [Entitic mass] 32.1 pg High 27.0-32.0 [facility] Mean corpuscular hemoglobin (MCH) determination 32.1 pg High 27.0-32.0 [facility] Mean corpuscular hemoglobin concentration (MCHC) determinationOrdered By: Nikia Henderson on 06-08-2024 MCHC (RBC) [Mass/Vol] 32.0 g/dL 32-36 [facility] Mean corpuscular hemoglobin concentration (MCHC) determination 32.0 g/dL -36 [facility] Mean platelet volume determi nationOrdered By: Nikia Henderson on 06-08-2024 Platelet mean volume (Bld) [Entitic vol] 9.4 fL 6.2-12.0 [facility] Mean platelet volume determination 9.4 fl 6.2-12.0 [facility] Monocyte percentageOrdered B y: Nikia Henderson on 06-08-2024 Monocytes/100 WBC (Bld) 9.4 % 0-[address] [facility] Monocyte percentage 9.4 % 0-10 [facility] Neutrophil percentageOrdered By: Nikia Henderson on 06-08-2024 Neutrophils/100 WBC (Bld) 63.1 % 47-70 [facility] Neutrophil percentage 63.1 % 47-70 [facility] Nucleated red blood cell per centageOrdered By: Nikia Henderson on 06-08-2024 Nucleated RBC/100 WBC (Bld) [Ratio] 0 % 0-5 [facility] Nucleated red blood cell percentage 0 % 0-5 [facility] Platelet countOrdered By: Cecilia Henderson on 06-08-2024 Platelets (Bld) [#/Vol] 244 10*3/uL 150-450 [facility] Platelet count 244 K/mm3 150-450 [facility] Potassium (Unsp spec) [Mass/ Vol]Ordered By: Nikia Henderson on 06-08-2024 Potassium [Moles/Vol] 4.3 mmol/L 3.3-5.1 [facility] Potassium measurement (mass/volume) 4.3 mmol/L 3.3-5.1 [facility] Potassium measurement (mass/ volume)Ordered By: Nikia Henderson on 06-08-2024 Potassium (Unsp spec) [Mass/Vol] 4.3 mmol/L 3.3-5.1 [facility] RBC Auto (Bld) [#/Vol]Ordere d By: Nikia Henderson on 06-08-2024 RBC (Bld) [#/Vol] 3.58 10*6/uL Low 4.2-5.4 [facility] Automated blood erythrocyte count 3.58 M/mm3 Low 4.2-5.4 [facility] Serum creatinine measurement (mass/volume)Ordered By: Nikia Henderson on 06-08-2024 Creatinine [Mass/Vol] 0.68 mg/dL Low 0.70-1.20 [facility] Serum glucose measurement (m ass/volume)Ordered By: Nikia Henderson on 06-08-2024 Glucose [Mass/Vol] 85 mg/dL 70-99 [facility] Serum or plasma calcium gianluca urement (mass/volume)Ordered By: Nikia Henderson on 06-08-2024 Calcium [Mass/Vol] 8.9 mg/dL 7.6-11.0 [facility] Serum or plasma urea nitroge n measurement (mass/volume)Ordered By: Nikia Henderson on 06-08-2024 Urea nitrogen [Mass/Vol] 20 mg/dL High 4-19 [facility] Sodium levelOrdered By: Catalina Henderson on 06-08-2024 Sodium [Moles/Vol] 141 mmol/L 133-145 [facility] Sodium level 141 mmol/L 133-145 [facility] Urea nitrogen [Mass/Vol]Orde red By: Nikia Henderson on 06-08-2024 Serum or plasma urea nitrogen measurement (mass/volume) 20 mg/dL High 4-19 [facility] White blood cell (WBC) count Ordered By: Nikia Henderson on 06-08-2024 WBC (Bld) [#/Vol] 5.9 10*3/uL 4.4-11.0 [facility] White blood cell (WBC) count 5.9 K/mm3 4.4-11.0 [facility] Absolute lymphocyte countOrd ered By: Nikia Henderson on 06-01-2024 Lymphocytes Auto (Unsp spec) [#/Vol] 1.46 10*3/uL 0.83-4.51 [facility] Absolute neutrophil countOrd ered By: Nikia Henderson on 06-01-2024 Neutrophils (Bld) [#/Vol] 5.2 10*3/uL 2.0-7.7 [facility] Absolute neutrophil count 5.2 X10^3/uL 2.0-7.7 [facility] Anion gap [Moles/Vol]Ordered By: Nikia Henderson on 06-01-2024 Anion gap in Serum or Plasma 11 5-15 [facility] Anion gap in Serum or Plasma Ordered By: Nikia Henderson on 06-01-2024 Anion gap [Moles/Vol] 11 mmol/L 5-15 [facility] Automated lymphocyte count a s percentage of total leukocytesOrdered By: Nikia Henderson on 06-01-2024 Lymphocytes/100 WBC Auto (Unsp spec) 19.4 % 19-41 [facility] BUN/creatinine ratioOrdered By: Nikia Henderson on 06-01-2024 Urea nitrogen/Creatinine [Mass ratio] 30.2 mg/mg High 10-20 [facility] BUN/creatinine ratio 30.2 RATIO High 10-20 [facility] Basophil percentageOrdered B y: Nikia Henderson on 06-01-2024 Basophils/100 WBC (Bld) 0.7 % 0-[address] [facility] Basophil percentage 0.7 % 0-1 [facility] Calcium [Mass/Vol]Ordered By : Nikia Henderson on 06-01-2024 Serum or plasma calcium measurement (mass/volume) 9.0 mg/dL 7.6-11.0 [facility] Carbon dioxide, total [Moles /volume] in Central venous bloodOrdered By: Nikia Henderson on 06-01-2024 CO2 [Moles/Vol] 20.7 mmol/L Low 21.0-32.0 [facility] Carbon dioxide, total [Moles/volume] in Central venous blood 20.7 mmol/L Low 21.0-32.0 [facility] Chloride assayOrdered By: Cecilia Henderson on 06-01-2024 Chloride [Moles/Vol] 110 mmol/L High 98-108 [facility] Chloride assay 110 mmol/L High 98-108 [facility] Creatinine [Mass/Vol]Ordered By: Nikia Henderson on 06-01-2024 Serum creatinine measurement (mass/volume) 0.72 mg/dL 0.70-1.20 [facility] Eosinophil percentageOrdered By: Nikia Henderson on 06-01-2024 Eosinophils/100 WBC (Bld) 1.6 % 0-5 [facility] Eosinophil percentage 1.6 % 0-5 [facility] Erythrocyte distribution wid th (RBC) [Ratio]Ordered By: Nikia Henderson on 06-01-2024 Erythrocyte distribution width ratio 14.1 % 11.6-14.6 [facility] Erythrocyte distribution width (RBC) [Entitic vol] 51.8 fL High 35.1-43.9 [facility] Erythrocyte distribution width standard deviation 51.8 fl High 35.1-43.9 [facility] Erythrocyte distribution wid th ratioOrdered By: Nikia Henderson on 06-01-2024 Erythrocyte distribution width (RBC) [Ratio] 14.1 % 11.6-14.6 [facility] Erythrocyte distribution wid th standard deviationOrdered By: Nikia Henderson on 06-01-2024 Erythrocyte distribution width (RBC) [Ratio] 51.8 fl High 35.1-43.9 [facility] GFR/1.73 sq M.predicted viji g non-blacks MDRD (S/P/Bld) [Vol rate/Area]Ordered By: Nikia Henderson on 06-01-2024 Estimated GFR (MDRD) Non-Af Amer 86 >60 [facility] Comment on above: mL/min/1.73m2 CKD-EP I Creatinine Equation (2020) Glomerular filtration rate (GFR) estimation/1.73 sq m using serum, plasma, or whole b 86 >60 [facility] Glomerular filtration rate ( GFR) estimation/1.73 sq m using serum, plasma, or whole bOrdered By: Nikia Henderson on 06-01-2024 GFR/1.73 sq M.predicted among non-blacks MDRD (S/P/Bld) [Vol rate/Area] 86 mL/min/{1.73_m2} >60 [facility] Glucose [Mass/Vol]Ordered By : Nikia Henderson on 06-01-2024 Serum glucose measurement (mass/volume) 94 mg/dL 70-99 [facility] Hematocrit Auto (Bld) [Volum e fraction]Ordered By: Nikia Henderson on 06-01-2024 Hematocrit (Bld) [Volume fraction] 36.4 % Low 37-47 [facility] Automated blood hematocrit (percentage) 36.4 % Low 37-47 [facility] Hemoglobin measurementOrdere d By: Nikia Henderson on 06-01-2024 Hemoglobin (Bld) [Mass/Vol] 11.7 g/dL Low 12.0-15. 0 [facility] Hemoglobin measurement 11.7 g/dL Low 12.0-15.0 [facility] Immature granulocytes/100 WB C Auto (Bld)Ordered By: Nikia Henderson on 06-01-2024 Immature granulocytes/100 WBC (Bld) 0.400 % 0.0-0.9 [facility] Comment on above: IG% - Immature Granu locytes (promyelocytes, myelocytes and metamyelocytes) > 1% indicates that a LEFT SHIFT is Present. Automated immature granulocyte percentage 0.400 % 0.0-0.9 [facility] Lymphocytes Auto (Unsp spec) [#/Vol]Ordered By: Nikia Henderson on 06-01-2024 Lymphocytes (Bld) [#/Vol] 1.46 10*3/uL 0.83-4.5 1 [facility] Absolute lymphocyte count 1.46 X10^3/uL 0.83-4. 51 [facility] Lymphocytes/100 WBC Auto (Un sp spec)Ordered By: Nikia Henderson on 06-01-2024 Lymphocytes/100 WBC (Bld) 19.4 % 19- [facility] Automated lymphocyte count as percentage of total leukocytes 19.4 % - [facility] MCV (RBC) [Entitic vol]Order ed By: Nikia Henderson on 06-01-2024 MCV (mean corpuscular volume) determination 100.6 fL High 81-99 [facility] MCV (mean corpuscular volume ) determinationOrdered By: Nikia Henderson on 06-01-2024 MCV (RBC) [Entitic vol] 100.6 fL High 81-99 [facility] Mean corpuscular hemoglobin (MCH) determinationOrdered By: Nikia Henderson on 06-01-2024 MCH (RBC) [Entitic mass] 32.3 pg High 27.0-32.0 [facility] Mean corpuscular hemoglobin (MCH) determination 32.3 pg High 27.0-32.0 [facility] Mean corpuscular hemoglobin concentration (MCHC) determinationOrdered By: Nikia Henderson on 06-01-2024 MCHC (RBC) [Mass/Vol] 32.1 g/dL 32-36 [facility] Mean corpuscular hemoglobin concentration (MCHC) determination 32.1 g/dL -36 [facility] Mean platelet volume determi nationOrdered By: Nikia Henderson on 06-01-2024 Platelet mean volume (Bld) [Entitic vol] 9.8 fL 6.2-12.0 [facility] Mean platelet volume determination 9.8 fl 6.2-12.0 [facility] Monocyte percentageOrdered B y: Nikia Henderson on 06-01-2024 Monocytes/100 WBC (Bld) 8.5 % 0-[address] [facility] Monocyte percentage 8.5 % 0-10 [facility] Neutrophil percentageOrdered By: Nikia Henderson on 06-01-2024 Neutrophils/100 WBC (Bld) 69.4 % 47-70 [facility] Neutrophil percentage 69.4 % 47-70 [facility] Nucleated red blood cell per centageOrdered By: Nikia Henderson on 06-01-2024 Nucleated RBC/100 WBC (Bld) [Ratio] 0 % 0-5 [facility] Nucleated red blood cell percentage 0 % 0-5 [facility] Platelet countOrdered By: Cecilia Henderson on 06-01-2024 Platelets (Bld) [#/Vol] 234 10*3/uL 150-450 [facility] Platelet count 234 K/mm3 150-450 [facility] Potassium (Unsp spec) [Mass/ Vol]Ordered By: Nikia Henderson on 06-01-2024 Potassium [Moles/Vol] 4.4 mmol/L 3.3-5.1 [facility] Potassium measurement (mass/volume) 4.4 mmol/L 3.3-5.1 [facility] Potassium measurement (mass/ volume)Ordered By: Nikia Henderson on 06-01-2024 Potassium (Unsp spec) [Mass/Vol] 4.4 mmol/L 3.3-5.1 [facility] RBC Auto (Bld) [#/Vol]Ordere d By: Nikia Henderson on 06-01-2024 RBC (Bld) [#/Vol] 3.62 10*6/uL Low 4.2-5.4 [facility] Automated blood erythrocyte count 3.62 M/mm3 Low 4.2-5.4 [facility] Serum creatinine measurement (mass/volume)Ordered By: Nikia Henderson on 06-01-2024 Creatinine [Mass/Vol] 0.72 mg/dL 0.70-1.20 [facility] Serum glucose measurement (m ass/volume)Ordered By: Nikia Henderson on 06-01-2024 Glucose [Mass/Vol] 94 mg/dL 70-99 [facility] Serum or plasma calcium gianluca urement (mass/volume)Ordered By: Nikia Henderson on 06-01-2024 Calcium [Mass/Vol] 9.0 mg/dL 7.6-11.0 [facility] Serum or plasma urea nitroge n measurement (mass/volume)Ordered By: Nikia Henderson on 06-01-2024 Urea nitrogen [Mass/Vol] 22 mg/dL High 07-17 [facility] Sodium levelOrdered By: Catalina tranvioletta Beatriz on 06-01-2024 Sodium [Moles/Vol] 142 mmol/L 133-145 [facility] Sodium level 142 mmol/L 133-145 [facility] Urea nitrogen [Mass/Vol]Orde red By: Nikia Henderson on 06-01-2024 Serum or plasma urea nitrogen measurement (mass/volume) 22 mg/dL High 07-17 [facility] White blood cell (WBC) count Ordered By: Nikia Henderson on 06-01-2024 WBC (Bld) [#/Vol] 7.5 10*3/uL 4.4-11.0 [facility] White blood cell (WBC) count 7.5 K/mm3 4.4-11.0 [facility] Basic Metabolic Profile (BMP )on 05-28-2024 BUN Normal 7-18 [facility] Comment on above: Result Comment: Canc elled via OM: Order cancelled - Patient discharged Performed By: #### L 500.2500, L100.0100 ####[facility] [address] [place], [address] BUN/CRE Normal 10-20 [facility] Comment on above: Result Comment: Canc elled via OM: Order cancelled - Patient discharged Performed By: #### L 500.2500, L100.0100 ####[facility] [address] [place], [address] CA,Total Normal 8.5-10.1 [facility] Comment on above: Result Comment: Canc elled via OM: Order cancelled - Patient discharged Performed By: #### L 500.2500, L100.0100 ####[facility] [address] [place], [address] CL Normal 98-107 [facility] Comment on above: Result Comment: Canc elled via OM: Order cancelled - Patient discharged Performed By: #### L 500.2500, L100.0100 ####[facility] [address] [place], [address] CO2 Normal 21.0-32.0 [facility] Comment on above: Result Comment: Canc elled via OM: Order cancelled - Patient discharged Performed By: #### L 500.2500, L100.0100 ####[facility] [address] [place], [address] CREAT,SERUM Normal 0.55-1.02 [facility] Comment on above: Result Comment: Canc elled via OM: Order cancelled - Patient discharged Performed By: #### L 500.2500, L100.0100 ####[facility] [address] [place], [address] EST GFR Normal >60 [facility] Comment on above: Result Comment: Canc elled via OM: Order cancelled - Patient discharged Performed By: #### L 500.2500, L100.0100 ####[facility] [address] [place], [address] EST GFR - AA Normal >60 [facility] Comment on above: Result Comment: Canc elled via OM: Order cancelled - Patient discharged Performed By: #### L 500.2500, L100.0100 ####[facility] [address] [place], [address] GAP Normal 5-15 [facility] Comment on above: Result Comment: Canc elled via OM: Order cancelled - Patient discharged Performed By: #### L 500.2500, L100.0100 ####[facility] [address] [place], [address] GLU Normal 74-106 [facility] Comment on above: Result Comment: Canc elled via OM: Order cancelled - Patient discharged Performed By: #### L 500.2500, L100.0100 ####[facility] [address] [place], [address] Potassium Normal 3.5-5.1 [facility] Comment on above: Result Comment: Canc elled via OM: Order cancelled - Patient discharged Performed By: #### L 500.2500, L100.0100 ####[facility] [address] [place], [address] Basic Metabolic Profile (BMP) Normal 136-145 [facility] Comment on above: Result Comment: Canc elled via OM: Order cancelled - Patient discharged Performed By: #### L 500.2500, L100.0100 ####[facility] [address] [place], [address] CBC W/Diff, Automatedon - Absolute Neut Normal 2.0-7.7 [facility] Comment on above: Result Comment: Canc elled via OM: Order cancelled - Patient discharged Performed By: #### L 500.2500, L100.0100 ####[facility] [address] [place], [address] HCT Normal 37-47 [facility] Comment on above: Result Comment: Canc elled via OM: Order cancelled - Patient discharged Performed By: #### L 500.2500, L100.0100 ####[facility] [address] [place], [address] HGB Normal 12.0-15.0 [facility] Comment on above: Result Comment: Canc elled via OM: Order cancelled - Patient discharged Performed By: #### L 500.2500, L100.0100 ####[facility] [address] [place], [address] MCH Normal 27.0-32.0 [facility] Comment on above: Result Comment: Canc elled via OM: Order cancelled - Patient discharged Performed By: #### L 500.2500, L100.0100 ####[facility] [address] [place], [address] MCHC Normal 32-36 [facility] Comment on above: Result Comment: Canc elled via OM: Order cancelled - Patient discharged Performed By: #### L 500.2500, L100.0100 ####[facility] [address] [place], [address] MCV Normal 81-99 [facility] Comment on above: Result Comment: Canc elled via OM: Order cancelled - Patient discharged Performed By: #### L 500.2500, L100.0100 ####[facility] [address] [place], [address] NEUT% Normal 47-70 [facility] Comment on above: Result Comment: Canc elled via OM: Order cancelled - Patient discharged Performed By: #### L 500.2500, L100.0100 ####[facility] [address] [place], [address] PLT Normal 150-450 [facility] Comment on above: Result Comment: Canc elled via OM: Order cancelled - Patient discharged Performed By: #### L 500.2500, L100.0100 ####[facility] [address] [place], [address] RBC Normal 4.2-5.4 [facility] Comment on above: Result Comment: Canc elled via OM: Order cancelled - Patient discharged Performed By: #### L 500.2500, L100.0100 ####[facility] [address] [place], [address] RDW CV Normal 11.6-14.6 [facility] Comment on above: Result Comment: Canc elled via OM: Order cancelled - Patient discharged Performed By: #### L 500.2500, L100.0100 ####[facility] [address] [place], [address] RDW SD Normal 35.1-43.9 [facility] Comment on above: Result Comment: Canc elled via OM: Order cancelled - Patient discharged Performed By: #### L 500.2500, L100.0100 ####[facility] [address] [place], [address] WBC Normal 4.4-11.0 [facility] Comment on above: Result Comment: Canc elled via OM: Order cancelled - Patient discharged Performed By: #### L 500.2500, L100.0100 ####[facility] [address] [place], [address] Absolute lymphocyte countOrd ered By: Michael Snowden on 05-21-2024 Lymphocytes Auto (Unsp spec) [#/Vol] 1.68 10*3/uL 0.83-4.51 [facility] Absolute neutrophil countOrd ered By: Michael Snowden on 05-21-2024 Neutrophils (Bld) [#/Vol] 6.3 10*3/uL 2.0-7.7 [facility] Absolute neutrophil count 6.3 X10^3/uL 2.0-7.7 [facility] Automated lymphocyte count a s percentage of total leukocytesOrdered By: Michael Snowden on 05-21-2024 Lymphocytes/100 WBC Auto (Unsp spec) 18.3 % Low 19-41 [facility] Basic Metabolic Profile (BMP )on 05-21-2024 BUN/CRE 39.8 RATIO High 10-20 [facility] Comment on above: Performed By: #### L 500.2500, L100.0100 ####[facility] [address] [place], [address] CA,Total 8.9 mg/dL Normal 8.5-10.1 [facility] Comment on above: Performed By: #### L 500.2500, L100.0100 ####[facility] [address] [place], [address] Chloride [Moles/Vol] 109 mmol/L High 98-107 [facility] Comment on above: Performed By: #### L 500.2500, L100.0100 ####[facility] [address] [place], [address] CO2 [Moles/Vol] 22.0 mmol/L Normal 21.0-32.0 [facility] Comment on above: Performed By: #### L 500.2500, L100.0100 ####[facility] [address] [place], [address] Creatinine [Mass/Vol] 0.80 mg/dL Normal 0.55-1.02 [facility] Comment on above: Result Comment: The validity of the calculated GFR GFRAA in patients over70 years has not been determined. Clinical correlation isessential. Performed By: #### L 500.2500, L100.0100 ####[facility] [address] [place], [address] ECRCL 50.86 ml/min Normal [facility] Comment on above: Performed By: #### L 500.2500, L100.0100 ####[facility] [address] [place], [address] EST GFR - AA 89 mL/min Normal >60 [facility] Comment on above: Result Comment: Afri can [place] GFR Calc Performed By: #### L 500.2500, L100.0100 ####[facility] [address] [place], [address] GAP 9 Normal 5-15 [facility] Comment on above: Performed By: #### L 500.2500, L100.0100 ####[facility] [address] [place], [address] GFR/1.73 sq M.predicted among non-blacks MDRD (S/P/Bld) [Vol rate/Area] 73 mL/min/{1.73_m2} Normal >60 [facility] Comment on above: Result Comment: Non- GFR Calc Performed By: #### L 500.2500, L100.0100 ####[facility] [address] [place], [address] Glucose [Mass/Vol] 85 mg/dL Normal 74-106 [facility] Comment on above: Performed By: #### L 500.2500, L100.0100 ####[facility] [address] [place], [address] Potassium [Moles/Vol] 5.1 mmol/L Normal 3.5-5.1 [facility] Comment on above: Performed By: #### L 500.2500, L100.0100 ####[facility] [address] [place], [address] Sodium [Moles/Vol] 140 mmol/L Normal 136-145 [facility] Comment on above: Performed By: #### L 500.2500, L100.0100 ####[facility] [address] [place], [address] Urea nitrogen [Mass/Vol] 32 mg/dL High 10-15 [facility] Comment on above: Performed By: #### L 500.2500, L100.0100 ####[facility] [address] [place], [address] Basophil percentageOrdered B y: Michael Snowden on 05-21-2024 Basophils/100 WBC (Bld) 0.1 % 0-[address] [facility] Basophil percentage 0.1 % 0-1 [facility] Blood urea nitrogen (BUN)/cr eatinine ratioOrdered By: Michael Snowden on 05-21-2024 Urea nitrogen/Creatinine [Mass ratio] 39.8 mg/mg High 01-17 [facility] Blood urea nitrogen (BUN)/creatinine ratio 39.8 RATIO High 01-17 [facility] CBC W/Diff, Automatedon - Absolute Lymph 1.68 X10 3/uL Normal 0.83-4.51 [facility] Comment on above: Performed By: #### L 500.2500, L100.0100 ####[facility] [address] [place], [address] Absolute Neut 6.3 X10 3/uL Normal 2.0-7.7 [facility] Comment on above: Performed By: #### L 500.2500, L100.0100 ####[facility] [address] [place], [address] Basophils/100 WBC (Bld) 0.1 % Normal 0-[address] [facility] Comment on above: Performed By: #### L 500.2500, L100.0100 ####[facility] [address] [place], [address] Eosinophils/100 WBC (Bld) 0.4 % Normal 0-5 [facility] Comment on above: Performed By: #### L 500.2500, L100.0100 ####[facility] [address] [place], [address] Erythrocyte distribution width (RBC) [Ratio] 14.3 % Normal 11.6-14.6 [facility] Comment on above: Performed By: #### L 500.2500, L100.0100 ####[facility] [address] [place], [address] Hematocrit (Bld) [Volume fraction] 34.3 % Low 37-47 [facility] Comment on above: Performed By: #### L 500.2500, L100.0100 ####[facility] [address] [place], [address] Hemoglobin (Bld) [Mass/Vol] 11.0 g/dL Low 12.0-15. 0 [facility] Comment on above: Performed By: #### L 500.2500, L100.0100 ####[facility] [address] [place], [address] IG% 2.600 High 0.0-0.9 [facility] Comment on above: Result Comment: IG% - Immature Granulocytes (promyelocytes, myelocytes andmetamyelocytes) > 1% indicates that a LEFT SHIFT is Present. Performed By: #### L 500.2500, L100.0100 ####[facility] [address] [place], [address] Lymphocytes/100 WBC (Bld) 18.3 % Low 19-41 [facility] Comment on above: Performed By: #### L 500.2500, L100.0100 ####[facility] [address] [place], [address] MCH (RBC) [Entitic mass] 31.7 pg Normal 27.0-32.0 [facility] Comment on above: Performed By: #### L 500.2500, L100.0100 ####[facility] [address] [place], [address] MCHC (RBC) [Mass/Vol] 32.1 g/dL Normal 32-36 [facility] Comment on above: Performed By: #### L 500.2500, L100.0100 ####[facility] [address] [place], [address] MCV (RBC) [Entitic vol] 98.8 fL Normal 81-99 [facility] Comment on above: Performed By: #### L 500.2500, L100.0100 ####[facility] [address] [place], [address] Monocytes/100 WBC (Bld) 9.6 % Normal 0-10 [facility] Comment on above: Performed By: #### L 500.2500, L100.0100 ####[facility] [address] [place], [address] Neutrophils/100 WBC (Bld) 69.0 % Normal 47-70 [facility] Comment on above: Performed By: #### L 500.2500, L100.0100 ####[facility] [address] [place], [address] Nucleated RBC (Bld) [#/Vol] 0 10*3/uL Normal 0-5 [facility] Comment on above: Performed By: #### L 500.2500, L100.0100 ####[facility] [address] [place], [address] Platelet mean volume (Bld) [Entitic vol] 8.9 fL Normal 6.2-12.0 [facility] Comment on above: Performed By: #### L 500.2500, L100.0100 ####[facility] [address] [place], [address] Platelets (Bld) [#/Vol] 280 10*3/uL Normal 150-450 [facility] Comment on above: Performed By: #### L 500.2500, L100.0100 ####[facility] [address] [place], [address] RBC (Bld) [#/Vol] 3.47 10*6/uL Low 4.2-5.4 [facility] Comment on above: Performed By: #### L 500.2500, L100.0100 ####[facility] [address] [place], [address] RDW SD 52.0 fl High 35.1-43.9 [facility] Comment on above: Performed By: #### L 500.2500, L100.0100 ####[facility] [address] [place], [address] WBC (Bld) [#/Vol] 9.2 10*3/uL Normal 4.4-11.0 [facility] Comment on above: Performed By: #### L 500.2500, L100.0100 ####[facility] [address] [place], [address] Calcium [Mass/Vol]Ordered By : Michael Snowden on 05-21-2024 Serum or plasma calcium measurement (mass/volume) 8.9 mg/dL 8.5-10.1 [facility] Carbon dioxide measurementOr dered By: Michael Snowden on 05-21-2024 CO2 [Moles/Vol] 22.0 mmol/L 21.0-32.0 [facility] Carbon dioxide measurement 22.0 mmol/L 21.0-32. 0 [facility] Chloride measurementOrdered By: Michael Snowden on 05-21-2024 Chloride [Moles/Vol] 109 mmol/L High 98-107 [facility] Chloride measurement 109 mmol/L High 98-107 [facility] Creatinine [Mass/Vol]Ordered By: Michael Snowden on 05-21-2024 Serum or plasma creatinine measurement (mass/volume) 0.80 mg/dL 0.55-1.02 [facility] Eosinophil percentageOrdered By: Michael Snowden on 05-21-2024 Eosinophils/100 WBC (Bld) 0.4 % 0-5 [facility] Eosinophil percentage 0.4 % 0-5 [facility] Erythrocyte distribution wid th (RBC) [Ratio]Ordered By: Michael Snowden on 05-21-2024 Erythrocyte distribution width ratio 14.3 % 11.6-14.6 [facility] Erythrocyte distribution width (RBC) [Entitic vol] 52.0 fL High 35.1-43.9 [facility] Erythrocyte distribution width standard deviation 52.0 fl High 35.1-43.9 [facility] Erythrocyte distribution wid th ratioOrdered By: Michael Snowden on 05-21-2024 Erythrocyte distribution width (RBC) [Ratio] 14.3 % 11.6-14.6 [facility] Erythrocyte distribution wid th standard deviationOrdered By: Michael Snowden on 05-21-2024 Erythrocyte distribution width (RBC) [Ratio] 52.0 fl High 35.1-43.9 [facility] Estimated glomerular filtrat ion rate (GFR) AmericanOrdered By: Michael Snowden on 05-21-2024 Estimated GFR (MDRD) Amer 89 mL/min >60 [facility] Comment on above: GFR Calc Estimated glomerular filtration rate (GFR) 89 mL/min >60 [facility] Estimation of creatinine bharat aranceOrdered By: Michael Snowden on 05-21-2024 Estimated Creatinine Clearance Calc 50.86 ml/min [facility] Estimation of creatinine clearance 50.86 ml/min [facility] Glomerular filtration rate ( GFR) estimationOrdered By: Michael Snowden on 05-21-2024 Estimated GFR (MDRD) Non-Af Amer 73 mL/min >60 [facility] Comment on above: Non- GFR Calc GFR/1.73 sq M.predicted among non-blacks MDRD (S/P/Bld) [Vol rate/Area] 73 mL/min/{1.73_m2} >60 [facility] Glomerular filtration rate (GFR) estimation 73 mL/min >60 [facility] Glucose measurementOrdered B y: Michael Snowden on 05-21-2024 Glucose [Mass/Vol] 85 mg/dL 74-106 [facility] Glucose measurement 85 mg/dL 74-106 [facility] Hematocrit Auto (Bld) [Volum e fraction]Ordered By: Michael Snowden on 05-21-2024 Hematocrit (Bld) [Volume fraction] 34.3 % Low 37-47 [facility] Automated blood hematocrit (percentage) 34.3 % Low 37-47 [facility] Hemoglobin measurementOrdere d By: Michael Snowden 05-21-2024 Hemoglobin (Bld) [Mass/Vol] 11.0 g/dL Low 12.0-15. 0 [facility] Hemoglobin measurement 11.0 g/dL Low 12.0-15.0 [facility] Immature granulocytes/100 WB C Auto (Bld)Ordered By: Michael Snowden on 05-21-2024 Immature granulocytes/100 WBC (Bld) 2.600 % High 0.0-0.9 [facility] Comment on above: IG% - Immature Granu locytes (promyelocytes, myelocytes and metamyelocytes) > 1% indicates that a LEFT SHIFT is Present. Automated immature granulocyte percentage 2.600 % High 0.0-0.9 [facility] Lymphocytes Auto (Unsp spec) [#/Vol]Ordered By: Michael Snowden on 05-21-2024 Lymphocytes (Bld) [#/Vol] 1.68 10*3/uL 0.83-4.5 1 [facility] Absolute lymphocyte count 1.68 X10^3/uL 0.83-4. 51 [facility] Lymphocytes/100 WBC Auto (Un sp spec)Ordered By: Michael Snowden on 05-21-2024 Lymphocytes/100 WBC (Bld) 18.3 % Low 19-41 [facility] Automated lymphocyte count as percentage of total leukocytes 18.3 % Low 19-41 [facility] MCV (RBC) [Entitic vol]Order ed By: Michael Snowden on 05-21-2024 MCV (mean corpuscular volume) determination 98.8 fL 81-99 [facility] MCV (mean corpuscular volume ) determinationOrdered By: Michael Snowden on 05-21-2024 MCV (RBC) [Entitic vol] 98.8 fL 81-99 [facility] Mean corpuscular hemoglobin (MCH) determinationOrdered By: Michael Snowden on 05-21-2024 MCH (RBC) [Entitic mass] 31.7 pg 27.0-32.0 [facility] Mean corpuscular hemoglobin (MCH) determination 31.7 pg 27.0-32.0 [facility] Mean corpuscular hemoglobin concentration (MCHC) determinationOrdered By: Michael Snowden on 05-21-2024 MCHC (RBC) [Mass/Vol] 32.1 g/dL 32-36 [facility] Mean corpuscular hemoglobin concentration (MCHC) determination 32.1 g/dL -36 [facility] Mean platelet volume determi nationOrdered By: Michael Snowden on 05-21-2024 Platelet mean volume (Bld) [Entitic vol] 8.9 fL 6.2-12.0 [facility] Mean platelet volume determination 8.9 fl 6.2-12.0 [facility] Monocyte percentageOrdered B y: Michael Snowden on 05-21-2024 Monocytes/100 WBC (Bld) 9.6 % 0-[address] [facility] Monocyte percentage 9.6 % 0-10 [facility] Neutrophil percentageOrdered By: Michael Snowden on 05-21-2024 Neutrophils/100 WBC (Bld) 69.0 % 47-70 [facility] Neutrophil percentage 69.0 % 47-70 [facility] Nucleated red blood cell per centageOrdered By: Michael Snowden on 05-21-2024 Nucleated RBC/100 WBC (Bld) [Ratio] 0 % 0-5 [facility] Nucleated red blood cell percentage 0 % 0-5 [facility] Platelet countOrdered By: Augusto Snowden on 05-21-2024 Platelets (Bld) [#/Vol] 280 10*3/uL 150-450 [facility] Platelet count 280 K/mm3 150-450 [facility] Potassium measurementOrdered By: Michael Snowden on 05-21-2024 Potassium [Moles/Vol] 5.1 mmol/L 3.5-5.1 [facility] Potassium measurement 5.1 mmol/L 3.5-5.1 [facility] RBC Auto (Bld) [#/Vol]Ordere d By: Michael Snowden on 05-21-2024 RBC (Bld) [#/Vol] 3.47 10*6/uL Low 4.2-5.4 [facility] Automated blood erythrocyte count 3.47 M/mm3 Low 4.2-5.4 [facility] Serum anion gap measurementO rdered By: Michael Snowden on 05-21-2024 Anion gap [Moles/Vol] 9 mmol/L 5-15 [facility] Serum anion gap measurement 9 5-15 [facility] Serum or plasma calcium gianluca urement (mass/volume)Ordered By: Michael Snowden on 05-21-2024 Calcium [Mass/Vol] 8.9 mg/dL 8.5-10.1 [facility] Serum or plasma creatinine m easurement (mass/volume)Ordered By: Michael Snowden on 05-21-2024 Creatinine [Mass/Vol] 0.80 mg/dL 0.55-1.02 [facility] Comment on above: The validity of the calculated GFR & GFRAA in patients over 70 years has not been determined. Clinical correlation is essential. Serum or plasma urea nitroge n measurement (mass/volume)Ordered By: Michael Snowden on 05-21-2024 Urea nitrogen [Mass/Vol] 32 mg/dL High 7-18 [facility] Sodium levelOrdered By: Michael Snowden on 05-21-2024 Sodium [Moles/Vol] 140 mmol/L 136-145 [facility] Sodium level 140 mmol/L 136-145 [facility] Urea nitrogen [Mass/Vol]Orde red By: Michael Snowden on 05-21-2024 Serum or plasma urea nitrogen measurement (mass/volume) 32 mg/dL High 7-18 [facility] White blood cell (WBC) count Ordered By: Michael Snowden on 05-21-2024 WBC (Bld) [#/Vol] 9.2 10*3/uL 4.4-11.0 [facility] White blood cell (WBC) count 9.2 K/mm3 4.4-11.0 [facility] COVID 19 AG RAPID (ELIE Saini)on 05-19-2024 SARS-CoV-2 (COVID-19) RNA DALILA+probe Ql (Unsp spec) Normal [facility] Comment on above: Performed By: #### M 100.505 ####[facility] [address] [place], [address] COVID-19 virus antigen assay Ordered By: Michael Sp on 05-19-2024 SARS-CoV-2 (COVID-19) Ag IA.rapid Ql (Resp) [facility] SARS-CoV-2 (COVID-19) Ag IA. rapid Ql (Resp)Ordered By: Michael Amezquitaok on 05-19-2024 SARS-CoV-2 Antigen (Rapid) [facility] Lumbar Spine 2 or 3 Viewson 05-18-2024 Lumbar Spine 2 or 3 Views Normal [facility] Basic Metabolic Profile (BMP )on 05-14-2024 BUN/CRE 22.1 RATIO High 10-20 [facility] Comment on above: Performed By: #### L 500.2500, L100.0100 ####[facility] [address] [place], [address] CA,Total 9.2 mg/dL Normal 8.5-10.1 [facility] Comment on above: Performed By: #### L 500.2500, L100.0100 ####[facility] [address] [place], [address] Chloride [Moles/Vol] 108 mmol/L High 98-107 [facility] Comment on above: Performed By: #### L 500.2500, L100.0100 ####[facility] [address] [place], [address] CO2 [Moles/Vol] 23.0 mmol/L Normal 21.0-32.0 [facility] Comment on above: Performed By: #### L 500.2500, L100.0100 ####[facility] [address] [place], [address] Creatinine [Mass/Vol] 0.63 mg/dL Normal 0.55-1.02 [facility] Comment on above: Result Comment: The validity of the calculated GFR GFRAA in patients over70 years has not been determined. Clinical correlation isessential. Performed By: #### L 500.2500, L100.0100 ####[facility] [address] [place], [address] ECRCL 50.48 ml/min Normal [facility] Comment on above: Performed By: #### L 500.2500, L100.0100 ####[facility] [address] [place], [address] EST GFR - AA 117 mL/min Normal >60 [facility] Comment on above: Result Comment: Afri can [place]er GFR Calc Performed By: #### L 500.2500, L100.0100 ####[facility] [address] [place], [address] GAP 6 Normal 5-15 [facility] Comment on above: Performed By: #### L 500.2500, L100.0100 ####[facility] [address] [place], [address] GFR/1.73 sq M.predicted among non-blacks MDRD (S/P/Bld) [Vol rate/Area] 96 mL/min/{1.73_m2} Normal >60 [facility] Comment on above: Result Comment: Non- GFR Calc Performed By: #### L 500.2500, L100.0100 ####[facility] [address] [place], [address] Glucose [Mass/Vol] 88 mg/dL Normal 74-106 [facility] Comment on above: Performed By: #### L 500.2500, L100.0100 ####[facility] [address] [place], [address] Potassium [Moles/Vol] 4.1 mmol/L Normal 3.5-5.1 [facility] Comment on above: Performed By: #### L 500.2500, L100.0100 ####[facility] [address] [place], [address] Sodium [Moles/Vol] 137 mmol/L Normal 136-145 [facility] Comment on above: Performed By: #### L 500.2500, L100.0100 ####[facility] [address] [place], [address] Urea nitrogen [Mass/Vol] 14 mg/dL Normal 7-18 [facility] Comment on above: Performed By: #### L 500.2500, L100.0100 ####[facility] [address] [place], [address] CBC W/Diff, Automatedon 05-01 Absolute Lymph 1.29 X10 3/uL Normal 0.83-4.51 [facility] Comment on above: Performed By: #### L 500.2500, L100.0100 ####[facility] [address] [place], [address] Absolute Neut 2.8 X10 3/uL Normal 2.0-7.7 [facility] Comment on above: Performed By: #### L 500.2500, L100.0100 ####[facility] [address] [place], [address] Basophils/100 WBC (Bld) 0.8 % Normal 0-[address] [facility] Comment on above: Performed By: #### L 500.2500, L100.0100 ####[facility] [address] [place], [address] Eosinophils/100 WBC (Bld) 3.2 % Normal 0-5 [facility] Comment on above: Performed By: #### L 500.2500, L100.0100 ####[facility] [address] [place], [address] Erythrocyte distribution width (RBC) [Ratio] 13.6 % Normal 11.6-14.6 [facility] Comment on above: Performed By: #### L 500.2500, L100.0100 ####[facility] [address] [place], [address] Hematocrit (Bld) [Volume fraction] 33.9 % Low 37-47 [facility] Comment on above: Performed By: #### L 500.2500, L100.0100 ####[facility] [address] [place], [address] Hemoglobin (Bld) [Mass/Vol] 11.0 g/dL Low 12.0-15. 0 [facility] Comment on above: Performed By: #### L 500.2500, L100.0100 ####[facility] [address] [place], [address] IG% 0.400 Normal 0.0-0.9 [facility] Comment on above: Result Comment: IG% - Immature Granulocytes (promyelocytes, myelocytes andmetamyelocytes) > 1% indicates that a LEFT SHIFT is Present. Performed By: #### L 500.2500, L100.0100 ####[facility] [address] [place], [address] Lymphocytes/100 WBC (Bld) 26.2 % Normal 19-41 [facility] Comment on above: Performed By: #### L 500.2500, L100.0100 ####[facility] [address] [place], [address] MCH (RBC) [Entitic mass] 32.2 pg High 27.0-32.0 [facility] Comment on above: Performed By: #### L 500.2500, L100.0100 ####[facility] [address] [place], [address] MCHC (RBC) [Mass/Vol] 32.4 g/dL Normal 32-36 [facility] Comment on above: Performed By: #### L 500.2500, L100.0100 ####[facility] [address] [place], [address] MCV (RBC) [Entitic vol] 99.1 fL High 81-[address] [facility] Comment on above: Performed By: #### L 500.2500, L100.0100 ####[facility] [address] [place], [address] Monocytes/100 WBC (Bld) 12.4 % High 0-[address] [facility] Comment on above: Performed By: #### L 500.2500, L100.0100 ####[facility] [address] [place], [address] Neutrophils/100 WBC (Bld) 57.0 % Normal 47-70 [facility] Comment on above: Performed By: #### L 500.2500, L100.0100 ####[facility] [address] [place], [address] Nucleated RBC (Bld) [#/Vol] 0 10*3/uL Normal 0-5 [facility] Comment on above: Performed By: #### L 500.2500, L100.0100 ####[facility] [address] [place], [address] Platelet mean volume (Bld) [Entitic vol] 9.3 fL Normal 6.2-12.0 [facility] Comment on above: Performed By: #### L 500.2500, L100.0100 ####[facility] [address] [place], [address] Platelets (Bld) [#/Vol] 196 10*3/uL Normal 150-450 [facility] Comment on above: Performed By: #### L 500.2500, L100.0100 ####[facility] [address] [place], [address] RBC (Bld) [#/Vol] 3.42 10*6/uL Low 4.2-5.4 [facility] Comment on above: Performed By: #### L 500.2500, L100.0100 ####[facility] [address] [place], [address] RDW SD 49.5 fl High 35.1-43.9 [facility] Comment on above: Performed By: #### L 500.2500, L100.0100 ####[facility] [address] [place], [address] WBC (Bld) [#/Vol] 4.9 10*3/uL Normal 4.4-11.0 [facility] Comment on above: Performed By: #### L 500.2500, L100.0100 ####[facility] [address] [place], [address] COVID 19 AG RAPID (ELIE Saini)on 05-12-2024 SARS-CoV-2 (COVID-19) RNA DALILA+probe Ql (Unsp spec) Normal [facility] Comment on above: Performed By: #### M 100.505 ####[facility] [address] [place], [address] COVID-19 virus antigen assay Ordered By: Michael Snowden on 05-12-2024 SARS-CoV-2 (COVID-19) Ag IA.rapid Ql (Resp) [facility] SARS-CoV-2 (COVID-19) Ag IA. rapid Ql (Resp)Ordered By: Michael Snowden on 05-12-2024 SARS-CoV-2 Antigen (Rapid) [facility] Basic Metabolic Profile (BMP )on 05-07-2024 BUN/CRE 23.5 RATIO High 10-20 [facility] Comment on above: Performed By: #### L 500.2500, L100.0100 ####[facility] [address] [place], [address] CA,Total 8.8 mg/dL Normal 8.5-10.1 [facility] Comment on above: Performed By: #### L 500.2500, L100.0100 ####[facility] [address] [place], [address] Chloride [Moles/Vol] 110 mmol/L High 98-107 [facility] Comment on above: Performed By: #### L 500.2500, L100.0100 ####[facility] [address] [place], [address] CO2 [Moles/Vol] 22.0 mmol/L Normal 21.0-32.0 [facility] Comment on above: Performed By: #### L 500.2500, L100.0100 ####[facility] [address] [place], [address] Creatinine [Mass/Vol] 0.64 mg/dL Normal 0.55-1.02 [facility] Comment on above: Result Comment: The validity of the calculated GFR GFRAA in patients over70 years has not been determined. Clinical correlation isessential. Performed By: #### L 500.2500, L100.0100 ####[facility] [address] [place], [address] ECRCL 50.29 ml/min Normal [facility] Comment on above: Performed By: #### L 500.2500, L100.0100 ####[facility] [address] [place], [address] EST GFR - AA 116 mL/min Normal >60 [facility] Comment on above: Result Comment: Afri can [place] GFR Calc Performed By: #### L 500.2500, L100.0100 ####[facility] [address] [place], [address] GAP 10 Normal 5-15 [facility] Comment on above: Performed By: #### L 500.2500, L100.0100 ####[facility] [address] [place], [address] GFR/1.73 sq M.predicted among non-blacks MDRD (S/P/Bld) [Vol rate/Area] 96 mL/min/{1.73_m2} Normal >60 [facility] Comment on above: Result Comment: Non- GFR Calc Performed By: #### L 500.2500, L100.0100 ####[facility] [address] [place], [address] Glucose [Mass/Vol] 94 mg/dL Normal 74-106 [facility] Comment on above: Performed By: #### L 500.2500, L100.0100 ####[facility] [address] [place], [address] Potassium [Moles/Vol] 4.1 mmol/L Normal 3.5-5.1 [facility] Comment on above: Performed By: #### L 500.2500, L100.0100 ####[facility] [address] [place], [address] Sodium [Moles/Vol] 142 mmol/L Normal 136-145 [facility] Comment on above: Performed By: #### L 500.2500, L100.0100 ####[facility] [address] [place], [address] Urea nitrogen [Mass/Vol] 15 mg/dL Normal 7-18 [facility] Comment on above: Performed By: #### L 500.2500, L100.0100 ####[facility] [address] [place], [address] CBC W/Diff, Automatedon 02-0 7-2024 Absolute Lymph 1.20 X10 3/uL Normal 0.83-4.51 [facility] Comment on above: Performed By: #### L 500.2500, L100.0100 ####[facility] [address] [place], [address] Absolute Neut 2.9 X10 3/uL Normal 2.0-7.7 [facility] Comment on above: Performed By: #### L 500.2500, L100.0100 ####[facility] [address] [place], [address] Basophils/100 WBC (Bld) 0.6 % Normal 0-[address] [facility] Comment on above: Performed By: #### L 500.2500, L100.0100 ####[facility] [address] [place], [address] Eosinophils/100 WBC (Bld) 3.0 % Normal 0-5 [facility] Comment on above: Performed By: #### L 500.2500, L100.0100 ####[facility] [address] [place], [address] Erythrocyte distribution width (RBC) [Ratio] 13.7 % Normal 11.6-14.6 [facility] Comment on above: Performed By: #### L 500.2500, L100.0100 ####[facility] [address] [place], [address] Hematocrit (Bld) [Volume fraction] 35.3 % Low 37-47 [facility] Comment on above: Performed By: #### L 500.2500, L100.0100 ####[facility] [address] [place], [address] Hemoglobin (Bld) [Mass/Vol] 11.3 g/dL Low 12.0-15. 0 [facility] Comment on above: Performed By: #### L 500.2500, L100.0100 ####[facility] [address] [place], [address] IG% 0.200 Normal 0.0-0.9 [facility] Comment on above: Result Comment: IG% - Immature Granulocytes (promyelocytes, myelocytes andmetamyelocytes) > 1% indicates that a LEFT SHIFT is Present. Performed By: #### L 500.2500, L100.0100 ####[facility] [address] [place], [address] Lymphocytes/100 WBC (Bld) 25.4 % Normal 19-41 [facility] Comment on above: Performed By: #### L 500.2500, L100.0100 ####[facility] [address] [place], [address] MCH (RBC) [Entitic mass] 31.7 pg Normal 27.0-32.0 [facility] Comment on above: Performed By: #### L 500.2500, L100.0100 ####[facility] [address] [place], [address] MCHC (RBC) [Mass/Vol] 32.0 g/dL Normal 32-36 [facility] Comment on above: Performed By: #### L 500.2500, L100.0100 ####[facility] [address] [place], [address] MCV (RBC) [Entitic vol] 98.9 fL Normal 81-[address] [facility] Comment on above: Performed By: #### L 500.2500, L100.0100 ####[facility] [address] [place], [address] Monocytes/100 WBC (Bld) 10.2 % High 0-10 [facility] Comment on above: Performed By: #### L 500.2500, L100.0100 ####[facility] [address] [place], [address] Neutrophils/100 WBC (Bld) 60.6 % Normal 47-70 [facility] Comment on above: Performed By: #### L 500.2500, L100.0100 ####[facility] [address] [place], [address] Nucleated RBC (Bld) [#/Vol] 0 10*3/uL Normal 0-5 [facility] Comment on above: Performed By: #### L 500.2500, L100.0100 ####[facility] [address] [place], [address] Platelet mean volume (Bld) [Entitic vol] 8.9 fL Normal 6.2-12.0 [facility] Comment on above: Performed By: #### L 500.2500, L100.0100 ####[facility] [address] [place], [address] Platelets (Bld) [#/Vol] 208 10*3/uL Normal 150-450 [facility] Comment on above: Performed By: #### L 500.2500, L100.0100 ####[facility] [address] [place], [address] RBC (Bld) [#/Vol] 3.57 10*6/uL Low 4.2-5.4 [facility] Comment on above: Performed By: #### L 500.2500, L100.0100 ####[facility] [address] [place], [address] RDW SD 50.4 fl High 35.1-43.9 [facility] Comment on above: Performed By: #### L 500.2500, L100.0100 ####[facility] [address] [place], [address] WBC (Bld) [#/Vol] 4.7 10*3/uL Normal 4.4-11.0 [facility] Comment on above: Performed By: #### L 500.2500, L100.0100 ####[facility] [address] [place], [address] Basic Metabolic Profile (BMP )on 04-30-2024 BUN/CRE 28.8 RATIO High 10-20 [facility] Comment on above: Performed By: #### L 100.0100, L500.2500 ####[facility] [address] [place], [address] CA,Total 8.9 mg/dL Normal 8.5-10.1 [facility] Comment on above: Performed By: #### L 100.0100, L500.2500 ####[facility] [address] [place], [address] Chloride [Moles/Vol] 112 mmol/L High 98-107 [facility] Comment on above: Performed By: #### L 100.0100, L500.2500 ####[facility] [address] [place], [address] CO2 [Moles/Vol] 22.0 mmol/L Normal 21.0-32.0 [facility] Comment on above: Performed By: #### L 100.0100, L500.2500 ####[facility] [address], [address] Creatinine [Mass/Vol] 0.73 mg/dL Normal 0.55-1.02 [facility] Comment on above: Result Comment: The validity of the calculated GFR GFRAA in patients over70 years has not been determined. Clinical correlation isessential. Performed By: #### L 100.0100, L500.2500 ####[facility] [address] [place], [address] ECRCL 50.34 ml/min Normal [facility] Comment on above: Performed By: #### L 100.0100, L500.2500 ####[facility] [address] [place], [address] EST GFR - AA 99 mL/min Normal >60 [facility] Comment on above: Result Comment: Afri can [place] GFR Calc Performed By: #### L 100.0100, L500.2500 ####[facility] [address] [place], [address] GAP 5 Normal 5-15 [facility] Comment on above: Performed By: #### L 100.0100, L500.2500 ####[facility] [address] [place], [address] GFR/1.73 sq M.predicted among non-blacks MDRD (S/P/Bld) [Vol rate/Area] 82 mL/min/{1.73_m2} Normal >60 [facility] Comment on above: Result Comment: Non- GFR Calc Performed By: #### L 100.0100, L500.2500 ####[facility] [address] [place], [address] Glucose [Mass/Vol] 96 mg/dL Normal 74-106 [facility] Comment on above: Performed By: #### L 100.0100, L500.2500 ####[facility] [address] [place], [address] Potassium [Moles/Vol] 4.3 mmol/L Normal 3.5-5.1 [facility] Comment on above: Performed By: #### L 100.0100, L500.2500 ####[facility] [address] [place], [address] Sodium [Moles/Vol] 140 mmol/L Normal 136-145 [facility] Comment on above: Performed By: #### L 100.0100, L500.2500 ####[facility] [address] [place], [address] Urea nitrogen [Mass/Vol] 21 mg/dL High 7-18 [facility] Comment on above: Performed By: #### L 100.0100, L500.2500 ####[facility] [address] [place], [address] CBC W/Diff, Automatedon - Absolute Lymph 1.28 X10 3/uL Normal 0.83-4.51 [facility] Comment on above: Performed By: #### L 100.0100, L500.2500 ####[facility] [address] [place], [address] Absolute Neut 3.9 X10 3/uL Normal 2.0-7.7 [facility] Comment on above: Performed By: #### L 100.0100, L500.2500 ####[facility] [address] [place], [address] Basophils/100 WBC (Bld) 1.0 % Normal 0-[address] [facility] Comment on above: Performed By: #### L 100.0100, L500.2500 ####[facility] [address] [place], [address] Eosinophils/100 WBC (Bld) 2.2 % Normal 0-5 [facility] Comment on above: Performed By: #### L 100.0100, L500.2500 ####[facility] [address] [place], [address] Erythrocyte distribution width (RBC) [Ratio] 13.9 % Normal 11.6-14.6 [facility] Comment on above: Performed By: #### L 100.0100, L500.2500 ####[facility] [address] [place], [address] Hematocrit (Bld) [Volume fraction] 36.1 % Low 37-47 [facility] Comment on above: Performed By: #### L 100.0100, L500.2500 ####[facility] [address] [place], [address] Hemoglobin (Bld) [Mass/Vol] 11.9 g/dL Low 12.0-15. 0 [facility] Comment on above: Performed By: #### L 100.0100, L500.2500 ####[facility] [address] [place], [address] IG% 0.500 Normal 0.0-0.9 [facility] Comment on above: Result Comment: IG% - Immature Granulocytes (promyelocytes, myelocytes andmetamyelocytes) > 1% indicates that a LEFT SHIFT is Present. Performed By: #### L 100.0100, L500.2500 ####[facility] [address] [place], [address] Lymphocytes/100 WBC (Bld) 21.3 % Normal 19-41 [facility] Comment on above: Performed By: #### L 100.0100, L500.2500 ####[facility] [address] [place], [address] MCH (RBC) [Entitic mass] 32.4 pg High 27.0-32.0 [facility] Comment on above: Performed By: #### L 100.0100, L500.2500 ####[facility] [address] [place], [address] MCHC (RBC) [Mass/Vol] 33.0 g/dL Normal 32-36 [facility] Comment on above: Performed By: #### L 100.0100, L500.2500 ####[facility] [address] [place], [address] MCV (RBC) [Entitic vol] 98.4 fL Normal 81-[address] [facility] Comment on above: Performed By: #### L 100.0100, L500.2500 ####[facility] [address] [place], [address] Monocytes/100 WBC (Bld) 10.3 % High 0-[address] [facility] Comment on above: Performed By: #### L 100.0100, L500.2500 ####[facility] [address] [place], [address] Neutrophils/100 WBC (Bld) 64.7 % Normal 47-70 [facility] Comment on above: Performed By: #### L 100.0100, L500.2500 ####[facility] [address] [place], [address] Nucleated RBC (Bld) [#/Vol] 0 10*3/uL Normal 0-5 [facility] Comment on above: Performed By: #### L 100.0100, L500.2500 ####[facility] [address] [place], [address] Platelet mean volume (Bld) [Entitic vol] 8.8 fL Normal 6.2-12.0 [facility] Comment on above: Performed By: #### L 100.0100, L500.2500 ####[facility] [address] [place], [address] Platelets (Bld) [#/Vol] 265 10*3/uL Normal 150-450 [facility] Comment on above: Performed By: #### L 100.0100, L500.2500 ####[facility] [address] [place], [address] RBC (Bld) [#/Vol] 3.67 10*6/uL Low 4.2-5.4 [facility] Comment on above: Performed By: #### L 100.0100, L500.2500 ####[facility] [address] [place], [address] RDW SD 50.2 fl High 35.1-43.9 [facility] Comment on above: Performed By: #### L 100.0100, L500.2500 ####[facility] [address] [place], [address] WBC (Bld) [#/Vol] 6.0 10*3/uL Normal 4.4-11.0 [facility] Comment on above: Performed By: #### L 100.0100, L500.2500 ####[facility] [address] [place], [address] Basic Metabolic Profile (BMP )on 04-23-2024 BUN/CRE 33.6 RATIO High 10-20 [facility] Comment on above: Performed By: #### L 100.0100, L500.2500 ####[facility] [address] [place], [address] CA,Total 8.8 mg/dL Normal 8.5-10.1 [facility] Comment on above: Performed By: #### L 100.0100, L500.2500 ####[facility] [address] [place], [address] Chloride [Moles/Vol] 108 mmol/L High 98-107 [facility] Comment on above: Performed By: #### L 100.0100, L500.2500 ####[facility] [address] [place], [address] CO2 [Moles/Vol] 22.0 mmol/L Normal 21.0-32.0 [facility] Comment on above: Performed By: #### L 100.0100, L500.2500 ####[facility] [address] [place], [address] Creatinine [Mass/Vol] 0.68 mg/dL Normal 0.55-1.02 [facility] Comment on above: Result Comment: The validity of the calculated GFR GFRAA in patients over70 years has not been determined. Clinical correlation isessential. Performed By: #### L 100.0100, L500.2500 ####[facility] [address] [place], [address] ECRCL 50.54 ml/min Normal [facility] Comment on above: Performed By: #### L 100.0100, L500.2500 ####[facility] [address] [place], [address] EST GFR - AA 107 mL/min Normal >60 [facility] Comment on above: Result Comment: Afri can [place] GFR Calc Performed By: #### L 100.0100, L500.2500 ####[facility] [address] [place], [address] GAP 6 Normal 5-15 [facility] Comment on above: Performed By: #### L 100.0100, L500.2500 ####[facility] [address] [place], [address] GFR/1.73 sq M.predicted among non-blacks MDRD (S/P/Bld) [Vol rate/Area] 88 mL/min/{1.73_m2} Normal >60 [facility] Comment on above: Result Comment: Non- GFR Calc Performed By: #### L 100.0100, L500.2500 ####[facility] [address] [place], [address] Glucose [Mass/Vol] 97 mg/dL Normal 74-106 [facility] Comment on above: Performed By: #### L 100.0100, L500.2500 ####[facility] [address] [place], [address] Potassium [Moles/Vol] 4.6 mmol/L Normal 3.5-5.1 [facility] Comment on above: Performed By: #### L 100.0100, L500.2500 ####[facility] [address] [place], [address] Sodium [Moles/Vol] 136 mmol/L Normal 136-145 [facility] Comment on above: Performed By: #### L 100.0100, L500.2500 ####[facility] [address] [place], [address] Urea nitrogen [Mass/Vol] 23 mg/dL High 7-18 [facility] Comment on above: Performed By: #### L 100.0100, L500.2500 ####[facility] [address] [place], [address] CBC W/Diff, Automatedon 04-01 Absolute Lymph 1.47 X10 3/uL Normal 0.83-4.51 [facility] Comment on above: Performed By: #### L 100.0100, L500.2500 ####[facility] [address] [place], [address] Absolute Neut 4.2 X10 3/uL Normal 2.0-7.7 [facility] Comment on above: Performed By: #### L 100.0100, L500.2500 ####[facility] [address] [place], [address] Basophils/100 WBC (Bld) 0.6 % Normal 0-[address] [facility] Comment on above: Performed By: #### L 100.0100, L500.2500 ####[facility] [address] [place], [address] Eosinophils/100 WBC (Bld) 2.1 % Normal 0-5 [facility] Comment on above: Performed By: #### L 100.0100, L500.2500 ####[facility] [address] [place], [address] Erythrocyte distribution width (RBC) [Ratio] 13.2 % Normal 11.6-14.6 [facility] Comment on above: Performed By: #### L 100.0100, L500.2500 ####[facility] [address] [place], [address] Hematocrit (Bld) [Volume fraction] 34.8 % Low 37-47 [facility] Comment on above: Performed By: #### L 100.0100, L500.2500 ####[facility] [address] [place], [address] Hemoglobin (Bld) [Mass/Vol] 11.5 g/dL Low 12.0-15. 0 [facility] Comment on above: Performed By: #### L 100.0100, L500.2500 ####[facility] [address] [place], [address] IG% 2.400 High 0.0-0.9 [facility] Comment on above: Result Comment: IG% - Immature Granulocytes (promyelocytes, myelocytes andmetamyelocytes) > 1% indicates that a LEFT SHIFT is Present. Performed By: #### L 100.0100, L500.2500 ####[facility] [address] [place], [address] Lymphocytes/100 WBC (Bld) 22.0 % Normal 19-41 [facility] Comment on above: Performed By: #### L 100.0100, L500.2500 ####[facility] [address] [place], [address] MCH (RBC) [Entitic mass] 32.5 pg High 27.0-32.0 [facility] Comment on above: Performed By: #### L 100.0100, L500.2500 ####[facility] [address] [place], [address] MCHC (RBC) [Mass/Vol] 33.0 g/dL Normal 32-36 [facility] Comment on above: Performed By: #### L 100.0100, L500.2500 ####[facility] [address] [place], [address] MCV (RBC) [Entitic vol] 98.3 fL Normal 81-99 [facility] Comment on above: Performed By: #### L 100.0100, L500.2500 ####[facility] [address] [place], [address] Monocytes/100 WBC (Bld) 10.3 % High 0-10 [facility] Comment on above: Performed By: #### L 100.0100, L500.2500 ####[facility] [address] [place], [address] Neutrophils/100 WBC (Bld) 62.6 % Normal 47-70 [facility] Comment on above: Performed By: #### L 100.0100, L500.2500 ####[facility] [address] [place], [address] Nucleated RBC (Bld) [#/Vol] 0 10*3/uL Normal 0-5 [facility] Comment on above: Performed By: #### L 100.0100, L500.2500 ####[facility] [address] [place], [address] Platelet mean volume (Bld) [Entitic vol] 9.0 fL Normal 6.2-12.0 [facility] Comment on above: Performed By: #### L 100.0100, L500.2500 ####[facility] [address] [place], [address] Platelets (Bld) [#/Vol] 263 10*3/uL Normal 150-450 [facility] Comment on above: Performed By: #### L 100.0100, L500.2500 ####[facility] [address] [place], [address] RBC (Bld) [#/Vol] 3.54 10*6/uL Low 4.2-5.4 [facility] Comment on above: Performed By: #### L 100.0100, L500.2500 ####[facility] [address] [place], [address] RDW SD 47.7 fl High 35.1-43.9 [facility] Comment on above: Performed By: #### L 100.0100, L500.2500 ####[facility] [address] [place], [address] WBC (Bld) [#/Vol] 6.7 10*3/uL Normal 4.4-11.0 [facility] Comment on above: Performed By: #### L 100.0100, L500.2500 ####[facility] [address] [place], [address] Basic Metabolic Profile (BMP )on 04-19-2024 BUN Normal -18 [facility] Comment on above: Result Comment: Canc elled via OM: Order cancelled - Patient discharged Performed By: #### L 100.0500, L500.2500 ####[facility] [address] [place], [address] BUN/CRE Normal - [facility] Comment on above: Result Comment: Canc elled via OM: Order cancelled - Patient discharged Performed By: #### L 100.0500, L500.2500 ####[facility] [address] [place], [address] CA,Total Normal 8.5-10.1 [facility] Comment on above: Result Comment: Canc elled via OM: Order cancelled - Patient discharged Performed By: #### L 100.0500, L500.2500 ####[facility] [address] [place], [address] CL Normal 98-107 [facility] Comment on above: Result Comment: Canc elled via OM: Order cancelled - Patient discharged Performed By: #### L 100.0500, L500.2500 ####[facility] [address] [place], [address] CO2 Normal 21.0-32.0 [facility] Comment on above: Result Comment: Canc elled via OM: Order cancelled - Patient discharged Performed By: #### L 100.0500, L500.2500 ####[facility] [address] [place], [address] CREAT,SERUM Normal 0.55-1.02 [facility] Comment on above: Result Comment: Canc elled via OM: Order cancelled - Patient discharged Performed By: #### L 100.0500, L500.2500 ####[facility] [address] [place], [address] EST GFR Normal >60 [facility] Comment on above: Result Comment: Canc elled via OM: Order cancelled - Patient discharged Performed By: #### L 100.0500, L500.2500 ####[facility] [address] [place], [address] EST GFR - AA Normal >60 [facility] Comment on above: Result Comment: Canc elled via OM: Order cancelled - Patient discharged Performed By: #### L 100.0500, L500.2500 ####[facility] [address] [place], [address] GAP Normal 5-15 [facility] Comment on above: Result Comment: Canc elled via OM: Order cancelled - Patient discharged Performed By: #### L 100.0500, L500.2500 ####[facility] [address] [place], [address] GLU Normal 74-106 [facility] Comment on above: Result Comment: Canc elled via OM: Order cancelled - Patient discharged Performed By: #### L 100.0500, L500.2500 ####[facility] [address] [place], [address] Potassium Normal 3.5-5.1 [facility] Comment on above: Result Comment: Canc elled via OM: Order cancelled - Patient discharged Performed By: #### L 100.0500, L500.2500 ####[facility] [address] [place], [address] Basic Metabolic Profile (BMP) Normal 136-145 [facility] Comment on above: Result Comment: Canc elled via OM: Order cancelled - Patient discharged Performed By: #### L 100.0500, L500.2500 ####[facility] [address] [place], [address] CBC-Complete Blood Cnt No Di ffon 04-19-2024 HCT Normal 37-47 [facility] Comment on above: Result Comment: Canc elled via OM: Order cancelled - Patient discharged Performed By: #### L 100.0500, L500.2500 ####[facility] [address] [place], [address] HGB Normal 12.0-15.0 [facility] Comment on above: Result Comment: Canc elled via OM: Order cancelled - Patient discharged Performed By: #### L 100.0500, L500.2500 ####[facility] [address] [place], [address] MCH Normal 27.0-32.0 [facility] Comment on above: Result Comment: Canc elled via OM: Order cancelled - Patient discharged Performed By: #### L 100.0500, L500.2500 ####[facility] [address] [place], [address] MCHC Normal 32-36 [facility] Comment on above: Result Comment: Canc elled via OM: Order cancelled - Patient discharged Performed By: #### L 100.0500, L500.2500 ####[facility] [address] [place], [address] MCV Normal 81-99 [facility] Comment on above: Result Comment: Canc elled via OM: Order cancelled - Patient discharged Performed By: #### L 100.0500, L500.2500 ####[facility] [address] [place], [address] PLT Normal 150-450 [facility] Comment on above: Result Comment: Canc elled via OM: Order cancelled - Patient discharged Performed By: #### L 100.0500, L500.2500 ####[facility] [address] [place], [address] RBC Normal 4.2-5.4 [facility] Comment on above: Result Comment: Canc elled via OM: Order cancelled - Patient discharged Performed By: #### L 100.0500, L500.2500 ####[facility] [address] [place], [address] RDW CV Normal 11.6-14.6 [facility] Comment on above: Result Comment: Canc elled via OM: Order cancelled - Patient discharged Performed By: #### L 100.0500, L500.2500 ####[facility] [address] [place], [address] RDW SD Normal 35.1-43.9 [facility] Comment on above: Result Comment: Canc elled via OM: Order cancelled - Patient discharged Performed By: #### L 100.0500, L500.2500 ####[facility] [address] [place], [address] WBC Normal 4.4-11.0 [facility] Comment on above: Result Comment: Canc elled via OM: Order cancelled - Patient discharged Performed By: #### L 100.0500, L500.2500 ####[facility] [address] [place], [address] Basic Metabolic Profile (BMP )on 04-18-2024 BUN Normal 7-18 [facility] Comment on above: Result Comment: Canc elled via OM: Order cancelled - Patient discharged Performed By: #### L 100.0500, L500.2500 ####[facility] [address] [place], [address] BUN/CRE Normal 10-20 [facility] Comment on above: Result Comment: Canc elled via OM: Order cancelled - Patient discharged Performed By: #### L 100.0500, L500.2500 ####[facility] [address] [place], [address] CA,Total Normal 8.5-10.1 [facility] Comment on above: Result Comment: Canc elled via OM: Order cancelled - Patient discharged Performed By: #### L 100.0500, L500.2500 ####[facility] [address] [place], [address] CL Normal 98-107 [facility] Comment on above: Result Comment: Canc elled via OM: Order cancelled - Patient discharged Performed By: #### L 100.0500, L500.2500 ####[facility] [address] [place], [address] CO2 Normal 21.0-32.0 [facility] Comment on above: Result Comment: Canc elled via OM: Order cancelled - Patient discharged Performed By: #### L 100.0500, L500.2500 ####[facility] [address] [place], [address] CREAT,SERUM Normal 0.55-1.02 [facility] Comment on above: Result Comment: Canc elled via OM: Order cancelled - Patient discharged Performed By: #### L 100.0500, L500.2500 ####[facility] [address] [place], [address] EST GFR Normal >60 [facility] Comment on above: Result Comment: Canc elled via OM: Order cancelled - Patient discharged Performed By: #### L 100.0500, L500.2500 ####[facility] [address] [place], [address] EST GFR - AA Normal >60 [facility] Comment on above: Result Comment: Canc elled via OM: Order cancelled - Patient discharged Performed By: #### L 100.0500, L500.2500 ####[facility] [address] [place], [address] GAP Normal 5-15 [facility] Comment on above: Result Comment: Canc elled via OM: Order cancelled - Patient discharged Performed By: #### L 100.0500, L500.2500 ####[facility] [address] [place], [address] GLU Normal 74-106 [facility] Comment on above: Result Comment: Canc elled via OM: Order cancelled - Patient discharged Performed By: #### L 100.0500, L500.2500 ####[facility] [address] [place], [address] Potassium Normal 3.5-5.1 [facility] Comment on above: Result Comment: Canc elled via OM: Order cancelled - Patient discharged Performed By: #### L 100.0500, L500.2500 ####[facility] [address] [place], [address] Basic Metabolic Profile (BMP) Normal 136-145 [facility] Comment on above: Result Comment: Canc elled via OM: Order cancelled - Patient discharged Performed By: #### L 100.0500, L500.2500 ####[facility] [address] [place], [address] CBC-Complete Blood Cnt No Di ffon 04-18-2024 HCT Normal 37-47 [facility] Comment on above: Result Comment: Canc elled via OM: Order cancelled - Patient discharged Performed By: #### L 100.0500, L500.2500 ####[facility] [address] [place], [address] HGB Normal 12.0-15.0 [facility] Comment on above: Result Comment: Canc elled via OM: Order cancelled - Patient discharged Performed By: #### L 100.0500, L500.2500 ####[facility] [address] [place], [address] MCH Normal 27.0-32.0 [facility] Comment on above: Result Comment: Canc elled via OM: Order cancelled - Patient discharged Performed By: #### L 100.0500, L500.2500 ####[facility] [address] [place], [address] MCHC Normal 32-36 [facility] Comment on above: Result Comment: Canc elled via OM: Order cancelled - Patient discharged Performed By: #### L 100.0500, L500.2500 ####[facility] [address] [place], [address] MCV Normal 81-99 [facility] Comment on above: Result Comment: Canc elled via OM: Order cancelled - Patient discharged Performed By: #### L 100.0500, L500.2500 ####[facility] [address] [place], [address] PLT Normal 150-450 [facility] Comment on above: Result Comment: Canc elled via OM: Order cancelled - Patient discharged Performed By: #### L 100.0500, L500.2500 ####[facility] [address] [place], [address] RBC Normal 4.2-5.4 [facility] Comment on above: Result Comment: Canc elled via OM: Order cancelled - Patient discharged Performed By: #### L 100.0500, L500.2500 ####[facility] [address] [place], [address] RDW CV Normal 11.6-14.6 [facility] Comment on above: Result Comment: Canc elled via OM: Order cancelled - Patient discharged Performed By: #### L 100.0500, L500.2500 ####[facility] [address] [place], [address] RDW SD Normal 35.1-43.9 [facility] Comment on above: Result Comment: Canc elled via OM: Order cancelled - Patient discharged Performed By: #### L 100.0500, L500.2500 ####[facility] [address] [place], [address] WBC Normal 4.4-11.0 [facility] Comment on above: Result Comment: Canc elled via OM: Order cancelled - Patient discharged Performed By: #### L 100.0500, L500.2500 ####[facility] [address] [place], [address] Basic Metabolic Profile (BMP )on 04-17-2024 BUN Normal 7-18 [facility] Comment on above: Result Comment: Canc elled via OM: Order cancelled - Patient discharged Performed By: #### L 500.2500, L100.0500 ####[facility] [address] [place], [address] BUN/CRE Normal 10-20 [facility] Comment on above: Result Comment: Canc elled via OM: Order cancelled - Patient discharged Performed By: #### L 500.2500, L100.0500 ####[facility] [address] [place], [address] CA,Total Normal 8.5-10.1 [facility] Comment on above: Result Comment: Canc elled via OM: Order cancelled - Patient discharged Performed By: #### L 500.2500, L100.0500 ####[facility] [address] [place], [address] CL Normal 98-107 [facility] Comment on above: Result Comment: Canc elled via OM: Order cancelled - Patient discharged Performed By: #### L 500.2500, L100.0500 ####[facility] [address] [place], [address] CO2 Normal 21.0-32.0 [facility] Comment on above: Result Comment: Canc elled via OM: Order cancelled - Patient discharged Performed By: #### L 500.2500, L100.0500 ####[facility] [address] [place], [address] CREAT,SERUM Normal 0.55-1.02 [facility] Comment on above: Result Comment: Canc elled via OM: Order cancelled - Patient discharged Performed By: #### L 500.2500, L100.0500 ####[facility] [address] [place], [address] EST GFR Normal >60 [facility] Comment on above: Result Comment: Canc elled via OM: Order cancelled - Patient discharged Performed By: #### L 500.2500, L100.0500 ####[facility] [address] [place], [address] EST GFR - AA Normal >60 [facility] Comment on above: Result Comment: Canc elled via OM: Order cancelled - Patient discharged Performed By: #### L 500.2500, L100.0500 ####[facility] [address], [address] GAP Normal 5-15 [facility] Comment on above: Result Comment: Canc elled via OM: Order cancelled - Patient discharged Performed By: #### L 500.2500, L100.0500 ####[facility] [address] [place], [address] GLU Normal 74-106 [facility] Comment on above: Result Comment: Canc elled via OM: Order cancelled - Patient discharged Performed By: #### L 500.2500, L100.0500 ####[facility] [address] [place], [address] Potassium Normal 3.5-5.1 [facility] Comment on above: Result Comment: Canc elled via OM: Order cancelled - Patient discharged Performed By: #### L 500.2500, L100.0500 ####[facility] [address] [place], [address] Basic Metabolic Profile (BMP) Normal 136-145 [facility] Comment on above: Result Comment: Canc elled via OM: Order cancelled - Patient discharged Performed By: #### L 500.2500, L100.0500 ####[facility] [address] [place], [address] BUN/CRE 36.8 RATIO High 10-20 [facility] Comment on above: Performed By: #### L 100.0100, L500.2500 ####[facility] [address] [place], [address] CA,Total 8.9 mg/dL Normal 8.5-10.1 [facility] Comment on above: Performed By: #### L 100.0100, L500.2500 ####[facility] [address] [place], [address] Chloride [Moles/Vol] 106 mmol/L Normal 98-107 [facility] Comment on above: Performed By: #### L 100.0100, L500.2500 ####[facility] [address] [place], [address] CO2 [Moles/Vol] 23.0 mmol/L Normal 21.0-32.0 [facility] Comment on above: Performed By: #### L 100.0100, L500.2500 ####[facility] [address] [place], [address] Creatinine [Mass/Vol] 0.71 mg/dL Normal 0.55-1.02 [facility] Comment on above: Result Comment: The validity of the calculated GFR GFRAA in patients over70 years has not been determined. Clinical correlation isessential. Performed By: #### L 100.0100, L500.2500 ####[facility] [address] [place], [address] ECRCL 50.11 ml/min Normal [facility] Comment on above: Performed By: #### L 100.0100, L500.2500 ####[facility] [address] [place], [address] EST GFR - AA 103 mL/min Normal >60 [facility] Comment on above: Result Comment: Afri can [place] GFR Calc Performed By: #### L 100.0100, L500.2500 ####[facility] [address] [place], [address] GAP 6 Normal 5-15 [facility] Comment on above: Performed By: #### L 100.0100, L500.2500 ####[facility] [address] [place], [address] GFR/1.73 sq M.predicted among non-blacks MDRD (S/P/Bld) [Vol rate/Area] 85 mL/min/{1.73_m2} Normal >60 [facility] Comment on above: Result Comment: Non- GFR Calc Performed By: #### L 100.0100, L500.2500 ####[facility] [address] [place], [address] Glucose [Mass/Vol] 108 mg/dL High 74-106 [facility] Comment on above: Result Comment: Fast ing Glucose result from 100 to 125 mg/dLsuggests IMPAIRED HOMEOSTASIS per A.D.A. criteria. Performed By: #### L 100.0100, L500.2500 ####[facility] [address] [place], [address] Potassium [Moles/Vol] 4.2 mmol/L Normal 3.5-5.1 [facility] Comment on above: Performed By: #### L 100.0100, L500.2500 ####[facility] [address] [place], [address] Sodium [Moles/Vol] 135 mmol/L Low 136-145 [facility] Comment on above: Performed By: #### L 100.0100, L500.2500 ####[facility] [address] [place], [address] Urea nitrogen [Mass/Vol] 26 mg/dL High 7-18 [facility] Comment on above: Performed By: #### L 100.0100, L500.2500 ####[facility] [address] [place], [address] CBC W/Diff, Automatedon 03-31 Absolute Lymph 1.39 X10 3/uL Normal 0.83-4.51 [facility] Comment on above: Performed By: #### L 100.0100, L500.2500 ####[facility] [address] [place], [address] Absolute Neut 5.3 X10 3/uL Normal 2.0-7.7 [facility] Comment on above: Performed By: #### L 100.0100, L500.2500 ####[facility] [address] [place], [address] Basophils/100 WBC (Bld) 0.3 % Normal 0-[address] [facility] Comment on above: Performed By: #### L 100.0100, L500.2500 ####[facility] [address] [place], [address] Eosinophils/100 WBC (Bld) 0.3 % Normal 0-5 [facility] Comment on above: Performed By: #### L 100.0100, L500.2500 ####[facility] [address] [place], [address] Erythrocyte distribution width (RBC) [Ratio] 13.0 % Normal 11.6-14.6 [facility] Comment on above: Performed By: #### L 100.0100, L500.2500 ####[facility] [address] [place], [address] Hematocrit (Bld) [Volume fraction] 35.2 % Low 37-47 [facility] Comment on above: Performed By: #### L 100.0100, L500.2500 ####[facility] [address] [place], [address] Hemoglobin (Bld) [Mass/Vol] 11.4 g/dL Low 12.0-15. 0 [facility] Comment on above: Performed By: #### L 100.0100, L500.2500 ####[facility] [address] [place], [address] IG% 0.300 Normal 0.0-0.9 [facility] Comment on above: Result Comment: IG% - Immature Granulocytes (promyelocytes, myelocytes andmetamyelocytes) > 1% indicates that a LEFT SHIFT is Present. Performed By: #### L 100.0100, L500.2500 ####[facility] [address] [place], [address] Lymphocytes/100 WBC (Bld) 18.8 % Low 19-41 [facility] Comment on above: Performed By: #### L 100.0100, L500.2500 ####[facility] [address] [place], [address] MCH (RBC) [Entitic mass] 31.7 pg Normal 27.0-32.0 [facility] Comment on above: Performed By: #### L 100.0100, L500.2500 ####[facility] [address] [place], [address] MCHC (RBC) [Mass/Vol] 32.4 g/dL Normal 32-36 [facility] Comment on above: Performed By: #### L 100.0100, L500.2500 ####[facility] [address] [place], [address] MCV (RBC) [Entitic vol] 97.8 fL Normal 81-99 [facility] Comment on above: Performed By: #### L 100.0100, L500.2500 ####[facility] [address] [place], [address] Monocytes/100 WBC (Bld) 8.3 % Normal 0-10 [facility] Comment on above: Performed By: #### L 100.0100, L500.2500 ####[facility] [address] [place], [address] Neutrophils/100 WBC (Bld) 72.0 % High 47-70 [facility] Comment on above: Performed By: #### L 100.0100, L500.2500 ####[facility] [address] [place], [address] Nucleated RBC (Bld) [#/Vol] 0 10*3/uL Normal 0-5 [facility] Comment on above: Performed By: #### L 100.0100, L500.2500 ####[facility] [address] [place], [address] Platelet mean volume (Bld) [Entitic vol] 9.0 fL Normal 6.2-12.0 [facility] Comment on above: Performed By: #### L 100.0100, L500.2500 ####[facility] [address] [place], [address] Platelets (Bld) [#/Vol] 261 10*3/uL Normal 150-450 [facility] Comment on above: Performed By: #### L 100.0100, L500.2500 ####[facility] [address] [place], [address] RBC (Bld) [#/Vol] 3.60 10*6/uL Low 4.2-5.4 [facility] Comment on above: Performed By: #### L 100.0100, L500.2500 ####[facility] [address] [place], [address] RDW SD 46.8 fl High 35.1-43.9 [facility] Comment on above: Performed By: #### L 100.0100, L500.2500 ####[facility] [address] [place], [address] WBC (Bld) [#/Vol] 7.4 10*3/uL Normal 4.4-11.0 [facility] Comment on above: Performed By: #### L 100.0100, L500.2500 ####[facility] [address] [place], [address] CBC-Complete Blood Cnt No Di ffon 04-17-2024 HCT Normal 37-47 [facility] Comment on above: Result Comment: Canc elled via OM: Order cancelled - Patient discharged Performed By: #### L 500.2500, L100.0500 ####[facility] [address] [place], [address] HGB Normal 12.0-15.0 [facility] Comment on above: Result Comment: Canc elled via OM: Order cancelled - Patient discharged Performed By: #### L 500.2500, L100.0500 ####[facility] [address] [place], [address] MCH Normal 27.0-32.0 [facility] Comment on above: Result Comment: Canc elled via OM: Order cancelled - Patient discharged Performed By: #### L 500.2500, L100.0500 ####[facility] [address] [place], [address] MCHC Normal 32-36 [facility] Comment on above: Result Comment: Canc elled via OM: Order cancelled - Patient discharged Performed By: #### L 500.2500, L100.0500 ####[facility] [address] [place], [address] MCV Normal 81-99 [facility] Comment on above: Result Comment: Canc elled via OM: Order cancelled - Patient discharged Performed By: #### L 500.2500, L100.0500 ####[facility] [address] [place], [address] PLT Normal 150-450 [facility] Comment on above: Result Comment: Canc elled via OM: Order cancelled - Patient discharged Performed By: #### L 500.2500, L100.0500 ####[facility] [address] [place], [address] RBC Normal 4.2-5.4 [facility] Comment on above: Result Comment: Canc elled via OM: Order cancelled - Patient discharged Performed By: #### L 500.2500, L100.0500 ####[facility] [address] [place], [address] RDW CV Normal 11.6-14.6 [facility] Comment on above: Result Comment: Canc elled via OM: Order cancelled - Patient discharged Performed By: #### L 500.2500, L100.0500 ####[facility] [address] [place], [address] RDW SD Normal 35.1-43.9 [facility] Comment on above: Result Comment: Canc elled via OM: Order cancelled - Patient discharged Performed By: #### L 500.2500, L100.0500 ####[facility] [address] [place], [address] WBC Normal 4.4-11.0 [facility] Comment on above: Result Comment: Canc elled via OM: Order cancelled - Patient discharged Performed By: #### L 500.2500, L100.0500 ####[facility] [address] [place], [address] Basic Metabolic Profile (BMP )on 04-16-2024 BUN/CRE 31.0 RATIO High 10-20 [facility] Comment on above: Performed By: #### L 500.2500, L100.0500 ####[facility] [address] [place], [address] CA,Total 9.3 mg/dL Normal 8.5-10.1 [facility] Comment on above: Performed By: #### L 500.2500, L100.0500 ####[facility] [address] [place], [address] Chloride [Moles/Vol] 107 mmol/L Normal 98-107 [facility] Comment on above: Performed By: #### L 500.2500, L100.0500 ####[facility] [address] [place], [address] CO2 [Moles/Vol] 25.0 mmol/L Normal 21.0-32.0 [facility] Comment on above: Performed By: #### L 500.2500, L100.0500 ####[facility] [address] [place], [address] Creatinine [Mass/Vol] 0.68 mg/dL Normal 0.55-1.02 [facility] Comment on above: Result Comment: The validity of the calculated GFR GFRAA in patients over70 years has not been determined. Clinical correlation isessential. Performed By: #### L 500.2500, L100.0500 ####[facility] [address] [place], [address] ECRCL 50.81 ml/min Normal [facility] Comment on above: Performed By: #### L 500.2500, L100.0500 ####[facility] [address] [place], [address] EST GFR - AA 108 mL/min Normal >60 [facility] Comment on above: Result Comment: Afri can [place] GFR Calc Performed By: #### L 500.2500, L100.0500 ####[facility] [address] [place], [address] GAP 5 Normal 5-15 [facility] Comment on above: Performed By: #### L 500.2500, L100.0500 ####[facility] [address] [place], [address] GFR/1.73 sq M.predicted among non-blacks MDRD (S/P/Bld) [Vol rate/Area] 89 mL/min/{1.73_m2} Normal >60 [facility] Comment on above: Result Comment: Non- GFR Calc Performed By: #### L 500.2500, L100.0500 ####[facility] [address] [place], [address] Glucose [Mass/Vol] 113 mg/dL High 74-106 [facility] Comment on above: Result Comment: Fast ing Glucose result from 100 to 125 mg/dLsuggests IMPAIRED HOMEOSTASIS per A.D.A. criteria. Performed By: #### L 500.2500, L100.0500 ####[facility] [address] [place], [address] Potassium [Moles/Vol] 4.5 mmol/L Normal 3.5-5.1 [facility] Comment on above: Performed By: #### L 500.2500, L100.0500 ####[facility] [address] [place], [address] Sodium [Moles/Vol] 137 mmol/L Normal 136-145 [facility] Comment on above: Performed By: #### L 500.2500, L100.0500 ####[facility] [address] [place], [address] Urea nitrogen [Mass/Vol] 21 mg/dL High 7-18 [facility] Comment on above: Performed By: #### L 500.2500, L100.0500 ####[facility] [address] [place], [address] Blood urea nitrogen (BUN)/cr eatinine ratioOrdered By: Lesli Watkins on 04-16-2024 Urea nitrogen/Creatinine [Mass ratio] 31.0 mg/mg High 10-20 [facility] Blood urea nitrogen (BUN)/creatinine ratio 31.0 RATIO High 10-20 [facility] CBC-Complete Blood Cnt No Di ffon 04-16-2024 Erythrocyte distribution width (RBC) [Ratio] 13.0 % Normal 11.6-14.6 [facility] Comment on above: Performed By: #### L 500.2500, L100.0500 ####[facility] [address] [place], [address] Hematocrit (Bld) [Volume fraction] 36.8 % Low 37-47 [facility] Comment on above: Performed By: #### L 500.2500, L100.0500 ####[facility] [address] [place], [address] Hemoglobin (Bld) [Mass/Vol] 11.9 g/dL Low 12.0-15. 0 [facility] Comment on above: Performed By: #### L 500.2500, L100.0500 ####[facility] [address] [place], [address] MCH (RBC) [Entitic mass] 31.6 pg Normal 27.0-32.0 [facility] Comment on above: Performed By: #### L 500.2500, L100.0500 ####[facility] [address] [place], [address] MCHC (RBC) [Mass/Vol] 32.3 g/dL Normal 32-36 [facility] Comment on above: Performed By: #### L 500.2500, L100.0500 ####[facility] [address] [place], [address] MCV (RBC) [Entitic vol] 97.6 fL Normal 81-99 [facility] Comment on above: Performed By: #### L 500.2500, L100.0500 ####[facility] [address] [place], [address] Platelet mean volume (Bld) [Entitic vol] 8.8 fL Normal 6.2-12.0 [facility] Comment on above: Performed By: #### L 500.2500, L100.0500 ####[facility] [address] [place], [address] Platelets (Bld) [#/Vol] 252 10*3/uL Normal 150-450 [facility] Comment on above: Performed By: #### L 500.2500, L100.0500 ####[facility] [address] [place], [address] RBC (Bld) [#/Vol] 3.77 10*6/uL Low 4.2-5.4 [facility] Comment on above: Performed By: #### L 500.2500, L100.0500 ####[facility] [address] [place], [address] RDW SD 46.3 fl High 35.1-43.9 [facility] Comment on above: Performed By: #### L 500.2500, L100.0500 ####[facility] [address] [place], [address] WBC (Bld) [#/Vol] 8.7 10*3/uL Normal 4.4-11.0 [facility] Comment on above: Performed By: #### L 500.2500, L100.0500 ####[facility] [address] [place], [address] Calcium [Mass/Vol]Ordered By : Lesli Watkins on 04-16-2024 Serum or plasma calcium measurement (mass/volume) 9.3 mg/dL 8.5-10.1 [facility] Carbon dioxide measurementOr dered By: Lesli Watkins on 04-16-2024 CO2 [Moles/Vol] 25.0 mmol/L 21.0-32.0 [facility] Carbon dioxide measurement 25.0 mmol/L 21.0-32. 0 [facility] Chloride measurementOrdered By: Lesli Watkins on 04-16-2024 Chloride [Moles/Vol] 107 mmol/L 98-107 [facility] Chloride measurement 107 mmol/L 98-107 [facility] Creatinine [Mass/Vol]Ordered By: Lesli Watkins on 04-16-2024 Serum or plasma creatinine measurement (mass/volume) 0.68 mg/dL 0.55-1.02 [facility] Erythrocyte distribution wid th (RBC) [Ratio]Ordered By: Lesli Watkins on 04-16-2024 Erythrocyte distribution width ratio 13.0 % 11.6-14.6 [facility] Erythrocyte distribution width (RBC) [Entitic vol] 46.3 fL High 35.1-43.9 [facility] Erythrocyte distribution width standard deviation 46.3 fl High 35.1-43.9 [facility] Erythrocyte distribution wid th ratioOrdered By: Lesli Watkins on 04-16-2024 Erythrocyte distribution width (RBC) [Ratio] 13.0 % 11.6-14.6 [facility] Erythrocyte distribution wid th standard deviationOrdered By: Lesli Watkins on 04-16-2024 Erythrocyte distribution width (RBC) [Ratio] 46.3 fl High 35.1-43.9 [facility] Estimated glomerular filtrat ion rate (GFR) AmericanOrdered By: Lesli Watkins on 04-16-2024 Estimated GFR (MDRD) Amer 108 mL/min >60 [facility] Comment on above: GFR Calc Estimated glomerular filtration rate (GFR) 108 mL/min >60 [facility] Estimation of creatinine bharat aranceOrdered By: Lesli Watkins on 04-16-2024 Estimated Creatinine Clearance Calc 50.81 ml/min [facility] Estimation of creatinine clearance 50.81 ml/min [facility] Glomerular filtration rate ( GFR) estimationOrdered By: Lesli Watkins on 04-16-2024 Estimated GFR (MDRD) Non-Af Amer 89 mL/min >60 [facility] Comment on above: Non- GFR Calc GFR/1.73 sq M.predicted among non-blacks MDRD (S/P/Bld) [Vol rate/Area] 89 mL/min/{1.73_m2} >60 [facility] Glomerular filtration rate (GFR) estimation 89 mL/min >60 [facility] Glucose measurementOrdered B y: Lesli Watkins on 04-16-2024 Glucose [Mass/Vol] 113 mg/dL High 74-106 [facility] Comment on above: Fasting Glucose resu lt from 100 to 125 mg/dL suggests IMPAIRED HOMEOSTASIS per A.D.A. criteria. Glucose measurement 113 mg/dL High 74-106 [facility] Hematocrit Auto (Bld) [Volum e fraction]Ordered By: Lesli Watkins on 04-16-2024 Hematocrit (Bld) [Volume fraction] 36.8 % Low 37-47 [facility] Automated blood hematocrit (percentage) 36.8 % Low 37-47 [facility] Hemoglobin measurementOrdere d By: Lesli Watkins on 04-16-2024 Hemoglobin (Bld) [Mass/Vol] 11.9 g/dL Low 12.0-15. 0 [facility] Hemoglobin measurement 11.9 g/dL Low 12.0-15.0 [facility] MCV (RBC) [Entitic vol]Order ed By: Lesli Watkins on 04-16-2024 MCV (mean corpuscular volume) determination 97.6 fL 81-99 [facility] MCV (mean corpuscular volume ) determinationOrdered By: Lesli Watkins on 04-16-2024 MCV (RBC) [Entitic vol] 97.6 fL 81-99 [facility] Mean corpuscular hemoglobin (MCH) determinationOrdered By: Lesli Watkins on 04-16-2024 MCH (RBC) [Entitic mass] 31.6 pg 27.0-32.0 [facility] Mean corpuscular hemoglobin (MCH) determination 31.6 pg 27.0-32.0 [facility] Mean corpuscular hemoglobin concentration (MCHC) determinationOrdered By: Lesli Watkins on 04-16-2024 MCHC (RBC) [Mass/Vol] 32.3 g/dL 32-36 [facility] Mean corpuscular hemoglobin concentration (MCHC) determination 32.3 g/dL 32-36 [facility] Mean platelet volume determi nationOrdered By: Lesli Watkins on 04-16-2024 Platelet mean volume (Bld) [Entitic vol] 8.8 fL 6.2-12.0 [facility] Mean platelet volume determination 8.8 fl 6.2-12.0 [facility] Platelet countOrdered By: Gaby Watkins on 04-16-2024 Platelets (Bld) [#/Vol] 252 10*3/uL 150-450 [facility] Platelet count 252 K/mm3 150-450 [facility] Potassium measurementOrdered By: Lesli Watkins on 04-16-2024 Potassium [Moles/Vol] 4.5 mmol/L 3.5-5.1 [facility] Potassium measurement 4.5 mmol/L 3.5-5.1 [facility] RBC Auto (Bld) [#/Vol]Ordere d By: Lesli Watkins on 04-16-2024 RBC (Bld) [#/Vol] 3.77 10*6/uL Low 4.2-5.4 [facility] Automated blood erythrocyte count 3.77 M/mm3 Low 4.2-5.4 [facility] Serum anion gap measurementO rdered By: Lesli Watkins on 04-16-2024 Anion gap [Moles/Vol] 5 mmol/L 5-15 [facility] Serum anion gap measurement 5 -15 [facility] Serum or plasma calcium gianluca urement (mass/volume)Ordered By: Lesli Watkins on 04-16-2024 Calcium [Mass/Vol] 9.3 mg/dL 8.5-10.1 [facility] Serum or plasma creatinine m easurement (mass/volume)Ordered By: Lesli Watkins on 04-16-2024 Creatinine [Mass/Vol] 0.68 mg/dL 0.55-1.02 [facility] Comment on above: The validity of the calculated GFR & GFRAA in patients over 70 years has not been determined. Clinical correlation is essential. Serum or plasma urea nitroge n measurement (mass/volume)Ordered By: Lesli Watkins on 04-16-2024 Urea nitrogen [Mass/Vol] 21 mg/dL High 10-15 [facility] Sodium levelOrdered By: Zeus Watkins on 04-16-2024 Sodium [Moles/Vol] 137 mmol/L 136-145 [facility] Sodium level 137 mmol/L 136-145 [facility] Urea nitrogen [Mass/Vol]Orde red By: Lesli Watkins on 04-16-2024 Serum or plasma urea nitrogen measurement (mass/volume) 21 mg/dL High 10-15 [facility] White blood cell (WBC) count Ordered By: Lesli Watkins on 04-16-2024 WBC (Bld) [#/Vol] 8.7 10*3/uL 4.4-11.0 [facility] White blood cell (WBC) count 8.7 K/mm3 4.4-11.0 [facility] Basic Metabolic Profile (BMP )on 04-15-2024 BUN/CRE 27.9 RATIO High 10-20 [facility] Comment on above: Performed By: #### L 500.2500, L100.0500 ####[facility] [address] [place], [place], [id number] [place],Total 9.2 mg/dL Normal 8.5-10.1 [facility] Comment on above: Performed By: #### L 500.2500, L100.0500 ####[facility] [address] [place], [address] Chloride [Moles/Vol] 107 mmol/L Normal 98-107 [facility] Comment on above: Performed By: #### L 500.2500, L100.0500 ####[facility] [address] [place], [address] CO2 [Moles/Vol] 26.0 mmol/L Normal 21.0-32.0 [facility] Comment on above: Performed By: #### L 500.2500, L100.0500 ####[facility] [address] [place], [address] Creatinine [Mass/Vol] 0.68 mg/dL Normal 0.55-1.02 [facility] Comment on above: Result Comment: The validity of the calculated GFR GFRAA in patients over70 years has not been determined. Clinical correlation isessential. Performed By: #### L 500.2500, L100.0500 ####[facility] [address] [place], [address] ECRCL 50.81 ml/min Normal [facility] Comment on above: Performed By: #### L 500.2500, L100.0500 ####[facility] [address] [place], [address] EST GFR - AA 107 mL/min Normal >60 [facility] Comment on above: Result Comment: Afri can [place] GFR Calc Performed By: #### L 500.2500, L100.0500 ####[facility] [address] [place], [address] GAP 5 Normal 5-15 [facility] Comment on above: Performed By: #### L 500.2500, L100.0500 ####[facility] [address] [place], [address] GFR/1.73 sq M.predicted among non-blacks MDRD (S/P/Bld) [Vol rate/Area] 89 mL/min/{1.73_m2} Normal >60 [facility] Comment on above: Result Comment: Non- GFR Calc Performed By: #### L 500.2500, L100.0500 ####[facility] [address] [place], [address] Glucose [Mass/Vol] 119 mg/dL High 74-106 [facility] Comment on above: Result Comment: Fast ing Glucose result from 100 to 125 mg/dLsuggests IMPAIRED HOMEOSTASIS per A.D.A. criteria. Performed By: #### L 500.2500, L100.0500 ####[facility] [address] [place], [address] Potassium [Moles/Vol] 4.4 mmol/L Normal 3.5-5.1 [facility] Comment on above: Performed By: #### L 500.2500, L100.0500 ####[facility] [address] [place], [address] Sodium [Moles/Vol] 138 mmol/L Normal 136-145 [facility] Comment on above: Performed By: #### L 500.2500, L100.0500 ####[facility] [address] [place], [address] Urea nitrogen [Mass/Vol] 19 mg/dL High 7-18 [facility] Comment on above: Performed By: #### L 500.2500, L100.0500 ####[facility] [address] [place], [address] CBC-Complete Blood Cnt No Di ffon 04-15-2024 Erythrocyte distribution width (RBC) [Ratio] 13.0 % Normal 11.6-14.6 [facility] Comment on above: Performed By: #### L 500.2500, L100.0500 ####[facility] [address] [place], [address] Hematocrit (Bld) [Volume fraction] 37.2 % Normal 37-47 [facility] Comment on above: Performed By: #### L 500.2500, L100.0500 ####[facility] [address] [place], [address] Hemoglobin (Bld) [Mass/Vol] 12.2 g/dL Normal 12.0-15. 0 [facility] Comment on above: Performed By: #### L 500.2500, L100.0500 ####[facility] [address] [place], [address] MCH (RBC) [Entitic mass] 31.9 pg Normal 27.0-32.0 [facility] Comment on above: Performed By: #### L 500.2500, L100.0500 ####[facility] [address] [place], [address] MCHC (RBC) [Mass/Vol] 32.8 g/dL Normal 32-36 [facility] Comment on above: Performed By: #### L 500.2500, L100.0500 ####[facility] [address] [place], [address] MCV (RBC) [Entitic vol] 97.4 fL Normal 81-[address] [facility] Comment on above: Performed By: #### L 500.2500, L100.0500 ####[facility] [address] [place], [address] Platelet mean volume (Bld) [Entitic vol] 8.9 fL Normal 6.2-12.0 [facility] Comment on above: Performed By: #### L 500.2500, L100.0500 ####[facility] [address] [place], [address] Platelets (Bld) [#/Vol] 281 10*3/uL Normal 150-450 [facility] Comment on above: Performed By: #### L 500.2500, L100.0500 ####[facility] [address] [place], [address] RBC (Bld) [#/Vol] 3.82 10*6/uL Low 4.2-5.4 [facility] Comment on above: Performed By: #### L 500.2500, L100.0500 ####[facility] [address] [place], [address] RDW SD 46.1 fl High 35.1-43.9 [facility] Comment on above: Performed By: #### L 500.2500, L100.0500 ####[facility] [address] [place], [address] WBC (Bld) [#/Vol] 9.4 10*3/uL Normal 4.4-11.0 [facility] Comment on above: Performed By: #### L 500.2500, L100.0500 ####[facility] [address] [place], [address] 12 Lead EKGon 04-14-2024 12 Lead EKG Normal [facility] Basic Metabolic Profile (BMP )on 04-14-2024 BUN/CRE 25.0 RATIO High 10-20 [facility] Comment on above: Performed By: #### L 500.2500, L100.0500 ####[facility] [address] [place], [address] [place],Total 8.8 mg/dL Normal 8.5-10.1 [facility] Comment on above: Performed By: #### L 500.2500, L100.0500 ####[facility] [address] [place], [address] Chloride [Moles/Vol] 106 mmol/L Normal 98-107 [facility] Comment on above: Performed By: #### L 500.2500, L100.0500 ####[facility] [address] [place], [address] CO2 [Moles/Vol] 27.0 mmol/L Normal 21.0-32.0 [facility] Comment on above: Performed By: #### L 500.2500, L100.0500 ####[facility] [address] [place], [address] Creatinine [Mass/Vol] 0.80 mg/dL Normal 0.55-1.02 [facility] Comment on above: Result Comment: The validity of the calculated GFR GFRAA in patients over70 years has not been determined. Clinical correlation isessential. Performed By: #### L 500.2500, L100.0500 ####[facility] [address] [place], [address] ECRCL 50.81 ml/min Normal [facility] Comment on above: Performed By: #### L 500.2500, L100.0500 ####[facility] [address] [place], [address] EST GFR - AA 89 mL/min Normal >60 [facility] Comment on above: Result Comment: Afri can [place] GFR Calc Performed By: #### L 500.2500, L100.0500 ####[facility] [address] [place], [address] GAP 4 Low 5-15 [facility] Comment on above: Performed By: #### L 500.2500, L100.0500 ####[facility] [address] [place], [address] GFR/1.73 sq M.predicted among non-blacks MDRD (S/P/Bld) [Vol rate/Area] 74 mL/min/{1.73_m2} Normal >60 [facility] Comment on above: Result Comment: Non- GFR Calc Performed By: #### L 500.2500, L100.0500 ####[facility] [address] [place], [address] Glucose [Mass/Vol] 93 mg/dL Normal 74-106 [facility] Comment on above: Performed By: #### L 500.2500, L100.0500 ####[facility] [address] [place], [address] Potassium [Moles/Vol] 4.3 mmol/L Normal 3.5-5.1 [facility] Comment on above: Performed By: #### L 500.2500, L100.0500 ####[facility] [address] [place], [address] Sodium [Moles/Vol] 138 mmol/L Normal 136-145 [facility] Comment on above: Performed By: #### L 500.2500, L100.0500 ####[facility] [address] [place], [address] Urea nitrogen [Mass/Vol] 20 mg/dL High 7-18 [facility] Comment on above: Performed By: #### L 500.2500, L100.0500 ####[facility] [address] [place], [address] CBC-Complete Blood Cnt No Di on 04-14-2024 Erythrocyte distribution width (RBC) [Ratio] 13.1 % Normal 11.6-14.6 [facility] Comment on above: Performed By: #### L 500.2500, L100.0500 ####[facility] [address] [place], [address] Hematocrit (Bld) [Volume fraction] 36.1 % Low 37-47 [facility] Comment on above: Performed By: #### L 500.2500, L100.0500 ####[facility] [address] [place], [address] Hemoglobin (Bld) [Mass/Vol] 11.6 g/dL Low 12.0-15. 0 [facility] Comment on above: Performed By: #### L 500.2500, L100.0500 ####[facility] [address] [place], [address] MCH (RBC) [Entitic mass] 31.9 pg Normal 27.0-32.0 [facility] Comment on above: Performed By: #### L 500.2500, L100.0500 ####[facility] [address] [place], [address] MCHC (RBC) [Mass/Vol] 32.1 g/dL Normal 32-36 [facility] Comment on above: Performed By: #### L 500.2500, L100.0500 ####[facility] [address] [place], [address] MCV (RBC) [Entitic vol] 99.2 fL High 81-[address] [facility] Comment on above: Performed By: #### L 500.2500, L100.0500 ####[facility] [address] [place], [address] Platelet mean volume (Bld) [Entitic vol] 9.0 fL Normal 6.2-12.0 [facility] Comment on above: Performed By: #### L 500.2500, L100.0500 ####[facility] [address] [place], [address] Platelets (Bld) [#/Vol] 269 10*3/uL Normal 150-450 [facility] Comment on above: Performed By: #### L 500.2500, L100.0500 ####[facility] [address] [place], [address] RBC (Bld) [#/Vol] 3.64 10*6/uL Low 4.2-5.4 [facility] Comment on above: Performed By: #### L 500.2500, L100.0500 ####[facility] [address] [place], [address] RDW SD 47.4 fl High 35.1-43.9 [facility] Comment on above: Performed By: #### L 500.2500, L100.0500 ####[facility] [address] [place], [address] WBC (Bld) [#/Vol] 7.1 10*3/uL Normal 4.4-11.0 [facility] Comment on above: Performed By: #### L 500.2500, L100.0500 ####[facility] [address] [place], [address] Lumbar Spine 2 or 3 Viewson 04-14-2024 Lumbar Spine 2 or 3 Views Normal [facility] MR/POSTOP.ANEon 04-14-2024 MR/POSTOP.ANE Normal [facility] MR/[id number] 04-14-2024 MR/POSTOPAN2 Normal [facility] Operative Reporton Operative Report Normal [facility] Basic Metabolic Profile (BMP )on 04-13-2024 BUN/CRE 25.7 RATIO High 10-20 [facility] Comment on above: Performed By: #### L 500.2500, L100.0500 ####[facility] [address] [place], [address] [place],Total 9.0 mg/dL Normal 8.5-10.1 [facility] Comment on above: Performed By: #### L 500.2500, L100.0500 ####[facility] [address] [place], [address] Chloride [Moles/Vol] 107 mmol/L Normal 98-107 [facility] Comment on above: Performed By: #### L 500.2500, L100.0500 ####[facility] [address] [place], [address] CO2 [Moles/Vol] 27.0 mmol/L Normal 21.0-32.0 [facility] Rehabilitation Comment on above: Performed By: #### L 500.2500, L100.0500 ####[facility] [address] [place], [address] Creatinine [Mass/Vol] 0.70 mg/dL Normal 0.55-1.02 [facility] Comment on above: Result Comment: The validity of the calculated GFR GFRAA in patients over70 years has not been determined. Clinical correlation isessential. Performed By: #### L 500.2500, L100.0500 ####[facility] [address] [place], [address] ECRCL 50.81 ml/min Normal [facility] Comment on above: Performed By: #### L 500.2500, L100.0500 ####[facility] [address] [place], [address] EST GFR - AA 104 mL/min Normal >60 [facility] Comment on above: Result Comment: Afri can [place]er GFR Calc Performed By: #### L 500.2500, L100.0500 ####[facility] [address] [place], [address] GAP 5 Normal 5-15 [facility] Comment on above: Performed By: #### L 500.2500, L100.0500 ####[facility] [address] [place], [address] GFR/1.73 sq M.predicted among non-blacks MDRD (S/P/Bld) [Vol rate/Area] 86 mL/min/{1.73_m2} Normal >60 [facility] Comment on above: Result Comment: Non- GFR Calc Performed By: #### L 500.2500, L100.0500 ####[facility] [address] [place], [address] Glucose [Mass/Vol] 94 mg/dL Normal 74-106 [facility] Comment on above: Performed By: #### L 500.2500, L100.0500 ####[facility] [address] [place], [address] Potassium [Moles/Vol] 4.1 mmol/L Normal 3.5-5.1 [facility] Comment on above: Performed By: #### L 500.2500, L100.0500 ####[facility] [address] [place], [address] Sodium [Moles/Vol] 139 mmol/L Normal 136-145 [facility] Comment on above: Performed By: #### L 500.2500, L100.0500 ####[facility] [address] [place], [address] Urea nitrogen [Mass/Vol] 18 mg/dL Normal 7-18 [facility] Comment on above: Performed By: #### L 500.2500, L100.0500 ####[facility] [address] [place], [address] CBC-Complete Blood Cnt No Di ffon 04-13-2024 Erythrocyte distribution width (RBC) [Ratio] 13.1 % Normal 11.6-14.6 [facility] Comment on above: Performed By: #### L 500.2500, L100.0500 ####[facility] [address] [place], [address] Hematocrit (Bld) [Volume fraction] 37.7 % Normal 37-47 [facility] Comment on above: Performed By: #### L 500.2500, L100.0500 ####[facility] [address] [place], [address] Hemoglobin (Bld) [Mass/Vol] 12.2 g/dL Normal 12.0-15. 0 [facility] Comment on above: Performed By: #### L 500.2500, L100.0500 ####[facility] [address] [place], [address] MCH (RBC) [Entitic mass] 32.0 pg Normal 27.0-32.0 [facility] Comment on above: Performed By: #### L 500.2500, L100.0500 ####[facility] [address] [place], [address] MCHC (RBC) [Mass/Vol] 32.4 g/dL Normal 32-36 [facility] Comment on above: Performed By: #### L 500.2500, L100.0500 ####[facility] [address] [place], [address] MCV (RBC) [Entitic vol] 99.0 fL Normal 81-99 [facility] Comment on above: Performed By: #### L 500.2500, L100.0500 ####[facility] [address] [place], [address] Platelet mean volume (Bld) [Entitic vol] 9.0 fL Normal 6.2-12.0 [facility] Comment on above: Performed By: #### L 500.2500, L100.0500 ####[facility] [address] [place], [address] Platelets (Bld) [#/Vol] 267 10*3/uL Normal 150-450 [facility] Comment on above: Performed By: #### L 500.2500, L100.0500 ####[facility] [address] [place], [address] RBC (Bld) [#/Vol] 3.81 10*6/uL Low 4.2-5.4 [facility] Comment on above: Performed By: #### L 500.2500, L100.0500 ####[facility] [address] [place], [address] RDW SD 47.2 fl High 35.1-43.9 [facility] Comment on above: Performed By: #### L 500.2500, L100.0500 ####[facility] [address] [place], [address] WBC (Bld) [#/Vol] 6.6 10*3/uL Normal 4.4-11.0 [facility] Comment on above: Performed By: #### L 500.2500, L100.0500 ####[facility] [address] [place], [address] Spine Lumbar (Routine)on Spine Lumbar (Routine) Normal [facility] Absolute lymphocyte countOrd ered By: Lesli Watkins on 04-12-2024 Lymphocytes Auto (Unsp spec) [#/Vol] 1.50 10*3/uL 0.83-4.51 [facility] Absolute neutrophil countOrd ered By: Lesli Watkins on 04-12-2024 Neutrophils (Bld) [#/Vol] 4.5 10*3/uL 2.0-7.7 [facility] Absolute neutrophil count 4.5 X10^3/uL 2.0-7.7 [facility] Automated lymphocyte count a s percentage of total leukocytesOrdered By: Lesli Watkins on 04-12-2024 Lymphocytes/100 WBC Auto (Unsp spec) 21.6 % 19-41 [facility] Basic Metabolic Profile (BMP )on 04-12-2024 BUN/CRE 18.6 RATIO Normal 10-20 [facility] Comment on above: Performed By: #### L 300.3900, L501.9520, L500.2500, L100.0100, L501.5200 ####[facility] [address] [place], [address] CA,Total 9.0 mg/dL Normal 8.5-10.1 [facility] Comment on above: Performed By: #### L 300.3900, L501.9520, L500.2500, L100.0100, L501.5200 ####[facility] [address] [place], [address] Chloride [Moles/Vol] 107 mmol/L Normal 98-107 [facility] Comment on above: Performed By: #### L 300.3900, L501.9520, L500.2500, L100.0100, L501.5200 ####[facility] [address] [place], [address] CO2 [Moles/Vol] 26.0 mmol/L Normal 21.0-32.0 [facility] Comment on above: Performed By: #### L 300.3900, L501.9520, L500.2500, L100.0100, L501.5200 ####[facility] [address] [place], [address] Creatinine [Mass/Vol] 0.81 mg/dL Normal 0.55-1.02 [facility] Comment on above: Result Comment: The validity of the calculated GFR GFRAA in patients over70 years has not been determined. Clinical correlation isessential. Performed By: #### L 300.3900, L501.9520, L500.2500, L100.0100, L501.5200 ####[facility] [address] [place], [address] ECRCL 50.18 ml/min Normal [facility] Comment on above: Performed By: #### L 300.3900, L501.9520, L500.2500, L100.0100, L501.5200 ####[facility] [address] [place], [address] EST GFR - AA 88 mL/min Normal >60 [facility] Comment on above: Result Comment: Afri can [place] GFR Calc Performed By: #### L 300.3900, L501.9520, L500.2500, L100.0100, L501.5200 ####[facility] [address] [place], [address] GAP 6 Normal 5-15 [facility] Comment on above: Performed By: #### L 300.3900, L501.9520, L500.2500, L100.0100, L501.5200 ####[facility] [address] [place], [address] GFR/1.73 sq M.predicted among non-blacks MDRD (S/P/Bld) [Vol rate/Area] 73 mL/min/{1.73_m2} Normal >60 [facility] Comment on above: Result Comment: Non- GFR Calc Performed By: #### L 300.3900, L501.9520, L500.2500, L100.0100, L501.5200 ####[facility] [address] [place], [address] Glucose [Mass/Vol] 95 mg/dL Normal 74-106 [facility] Comment on above: Performed By: #### L 300.3900, L501.9520, L500.2500, L100.0100, L501.5200 ####[facility] [address] [place], [address] Potassium [Moles/Vol] 4.4 mmol/L Normal 3.5-5.1 [facility] Comment on above: Performed By: #### L 300.3900, L501.9520, L500.2500, L100.0100, L501.5200 ####[facility] [address] [place], [address] Sodium [Moles/Vol] 138 mmol/L Normal 136-145 [facility] Comment on above: Performed By: #### L 300.3900, L501.9520, L500.2500, L100.0100, L501.5200 ####[facility] [address] [place], [address] Urea nitrogen [Mass/Vol] 15 mg/dL Normal 7-18 [facility] Comment on above: Performed By: #### L 300.3900, L501.9520, L500.2500, L100.0100, L501.5200 ####[facility] [address] [place], [address] Basophil percentageOrdered B y: Lesli Watkins on 04-12-2024 Basophils/100 WBC (Bld) 0.6 % 0-[address] [facility] Basophil percentage 0.6 % 0-1 [facility] CBC W/Diff, Automatedon 03-31 Absolute Lymph 1.50 X10 3/uL Normal 0.83-4.51 [facility] Comment on above: Performed By: #### L 300.3900, L501.9520, L500.2500, L100.0100, L501.5200 ####[facility] [address] [place], [address] Absolute Neut 4.5 X10 3/uL Normal 2.0-7.7 [facility] Comment on above: Performed By: #### L 300.3900, L501.9520, L500.2500, L100.0100, L501.5200 ####[facility] [address] [place], [address] Basophils/100 WBC (Bld) 0.6 % Normal 0-[address] [facility] Comment on above: Performed By: #### L 300.3900, L501.9520, L500.2500, L100.0100, L501.5200 ####[facility] [address] [place], [address] Eosinophils/100 WBC (Bld) 1.3 % Normal 0-5 [facility] Comment on above: Performed By: #### L 300.3900, L501.9520, L500.2500, L100.0100, L501.5200 ####[facility] [address] [place], [address] Erythrocyte distribution width (RBC) [Ratio] 13.1 % Normal 11.6-14.6 [facility] Comment on above: Performed By: #### L 300.3900, L501.9520, L500.2500, L100.0100, L501.5200 ####[facility] [address] [place], [address] Hematocrit (Bld) [Volume fraction] 39.0 % Normal 37-47 [facility] Comment on above: Performed By: #### L 300.3900, L501.9520, L500.2500, L100.0100, L501.5200 ####[facility] [address] [place], [address] Hemoglobin (Bld) [Mass/Vol] 12.5 g/dL Normal 12.0-15. 0 [facility] Comment on above: Performed By: #### L 300.3900, L501.9520, L500.2500, L100.0100, L501.5200 ####[facility] [address] [place], [address] IG% 0.400 Normal 0.0-0.9 [facility] Comment on above: Result Comment: IG% - Immature Granulocytes (promyelocytes, myelocytes andmetamyelocytes) > 1% indicates that a LEFT SHIFT is Present. Performed By: #### L 300.3900, L501.9520, L500.2500, L100.0100, L501.5200 ####[facility] [address] [place], [address] Lymphocytes/100 WBC (Bld) 21.6 % Normal 19-41 [facility] Comment on above: Performed By: #### L 300.3900, L501.9520, L500.2500, L100.0100, L501.5200 ####[facility] [address] [place], [address] MCH (RBC) [Entitic mass] 31.7 pg Normal 27.0-32.0 [facility] Comment on above: Performed By: #### L 300.3900, L501.9520, L500.2500, L100.0100, L501.5200 ####[facility] [address] [place], [address] MCHC (RBC) [Mass/Vol] 32.1 g/dL Normal 32-36 [facility] Comment on above: Performed By: #### L 300.3900, L501.9520, L500.2500, L100.0100, L501.5200 ####[facility] [address] [place], [address] MCV (RBC) [Entitic vol] 99.0 fL Normal 81-99 [facility] Comment on above: Performed By: #### L 300.3900, L501.9520, L500.2500, L100.0100, L501.5200 ####[facility] [address] [place], [address] Monocytes/100 WBC (Bld) 10.9 % High 0-[address] [facility] Comment on above: Performed By: #### L 300.3900, L501.9520, L500.2500, L100.0100, L501.5200 ####[facility] [address] [place], [address] Neutrophils/100 WBC (Bld) 65.2 % Normal 47-70 [facility] Comment on above: Performed By: #### L 300.3900, L501.9520, L500.2500, L100.0100, L501.5200 ####[facility] [address] [place], [address] Nucleated RBC (Bld) [#/Vol] 0 10*3/uL Normal 0-5 [facility] Comment on above: Performed By: #### L 300.3900, L501.9520, L500.2500, L100.0100, L501.5200 ####[facility] [address] [place], [address] Platelet mean volume (Bld) [Entitic vol] 8.8 fL Normal 6.2-12.0 [facility] Comment on above: Performed By: #### L 300.3900, L501.9520, L500.2500, L100.0100, L501.5200 ####[facility] [address] [place], [address] Platelets (Bld) [#/Vol] 291 10*3/uL Normal 150-450 [facility] Comment on above: Performed By: #### L 300.3900, L501.9520, L500.2500, L100.0100, L501.5200 ####[facility] [address] [place], [address] RBC (Bld) [#/Vol] 3.94 10*6/uL Low 4.2-5.4 [facility] Comment on above: Performed By: #### L 300.3900, L501.9520, L500.2500, L100.0100, L501.5200 ####[facility] [address] [place], [address] RDW SD 47.5 fl High 35.1-43.9 [facility] Comment on above: Performed By: #### L 300.3900, L501.9520, L500.2500, L100.0100, L501.5200 ####[facility] [address] [place], [address] WBC (Bld) [#/Vol] 7.0 10*3/uL Normal 4.4-11.0 [facility] Comment on above: Performed By: #### L 300.3900, L501.9520, L500.2500, L100.0100, L501.5200 ####[facility] [address] [place], [place], [address] Eosinophil percentageOrdered By: Lesli Watkins on 04-12-2024 Eosinophils/100 WBC (Bld) 1.3 % 0-5 [facility] Eosinophil percentage 1.3 % 0-5 [facility] Immature granulocytes/100 WB C Auto (Bld)Ordered By: Lesli Watkins on 04-12-2024 Immature granulocytes/100 WBC (Bld) 0.400 % 0.0-0.9 [facility] Comment on above: IG% - Immature Granu locytes (promyelocytes, myelocytes and metamyelocytes) > 1% indicates that a LEFT SHIFT is Present. Automated immature granulocyte percentage 0.400 % 0.0-0.9 [facility] International normalized rat io (INR) calculationOrdered By: Lseli Watkins on 04-12-2024 INR Coag (Bld) [Relative time] 1.0 {INR} [facility] International normalized ratio (INR) calculation 1.0 [facility] Lymphocytes Auto (Unsp spec) [#/Vol]Ordered By: Lesli Watkins on 04-12-2024 Lymphocytes (Bld) [#/Vol] 1.50 10*3/uL 0.83-4.5 1 [facility] Absolute lymphocyte count 1.50 X10^3/uL 0.83-4. 51 [facility] Lymphocytes/100 WBC Auto (Un sp spec)Ordered By: Lesli Watkins on 04-12-2024 Lymphocytes/100 WBC (Bld) 21.6 % [facility] Automated lymphocyte count as percentage of total leukocytes 21.6 % [facility] Magnesiumon 04-12-2024 Magnesium [Mass/Vol] 2.3 mg/dL Normal 1.6-2.6 [facility] Comment on above: Performed By: #### L 300.3900, L501.9520, L500.2500, L100.0100, L501.5200 ####[facility] [address] [place], [place], [id number] Magnesium measurementOrdered By: Lesli Watkins on 04-12-2024 Magnesium [Mass/Vol] 2.3 mg/dL 1.6-2.6 [facility] Magnesium measurement 2.3 mg/dL 1.6-2.6 [facility] Monocyte percentageOrdered B y: Lesli Watkins on 04-12-2024 Monocytes/100 WBC (Bld) 10.9 % High 0-[address] [facility] Monocyte percentage 10.9 % High 0-10 [facility] Neutrophil percentageOrdered By: Lesli Watkins on 04-12-2024 Neutrophils/100 WBC (Bld) 65.2 % 47-70 [facility] Neutrophil percentage 65.2 % 47-70 [facility] Nucleated red blood cell per centageOrdered By: Lesli Watkins on 04-12-2024 Nucleated RBC/100 WBC (Bld) [Ratio] 0 % 0-5 [facility] Nucleated red blood cell percentage 0 % 0-5 [facility] Prothrombin Time w/INRon INR Coag (PPP) [Relative time] 1.0 {INR} Normal [facility] Comment on above: Performed By: #### L 300.3900, L501.9520, L500.2500, L100.0100, L501.5200 ####[facility] [address] [place], [address] PT Coag (PPP) [Time] 13.8 s Normal 11.7-14.9 [facility] Comment on above: Performed By: #### L 300.3900, L501.9520, L500.2500, L100.0100, L501.5200 ####[facility] [address] [place], [address] Prothrombin timeOrdered By: Lesli Watkins on 04-12-2024 PT Coag (PPP) [Time] 13.8 s 11.7-14.9 [facility] Prothrombin time 13.8 SECONDS 11.7-14.9 [facility] Serum or plasma thyroid stim ulating hormone (TSH) measurement (units/volume)Ordered By: Lesli Watkins on 04-12-2024 TSH Qn 0.856 uIU/mL 0.358-3.740 [facility] TSH QnOrdered By: Lesli mccoy on 04-12-2024 Thyroid Stimulating Hormone (TSH) 0.856 uIU/mL 0.358-3.740 [facility] Serum or plasma thyroid stimulating hormone (TSH) measurement (units/volume) 0.856 uIU/mL 0.358-3.740 [facility] Thyroid Stim Hormone (TSH)on 04-12-2024 TSH 0.856 uIU/mL Normal 0.358-3.740 [facility] Comment on above: Performed By: #### L 300.3900, L501.9520, L500.2500, L100.0100, L501.5200 ####[facility] [address] [place], [address] Transvaginal Non-on 04-12-2024 Transvaginal Non- Normal [facility] Basic Metabolic Profile (BMP )on 04-11-2024 BUN/CRE 18.3 RATIO Normal 10-20 [facility] Comment on above: Performed By: #### L 100.0100, L500.2500 ####[facility] [address] [place], [address] CA,Total 9.1 mg/dL Normal 8.5-10.1 [facility] Comment on above: Performed By: #### L 100.0100, L500.2500 ####[facility] [address] [place], [address] Chloride [Moles/Vol] 103 mmol/L Normal 98-107 [facility] Comment on above: Performed By: #### L 100.0100, L500.2500 ####[facility] [address] [place], [address] CO2 [Moles/Vol] 27.0 mmol/L Normal 21.0-32.0 [facility] Comment on above: Performed By: #### L 100.0100, L500.2500 ####[facility] [address] [place], [address] Creatinine [Mass/Vol] 0.76 mg/dL Normal 0.55-1.02 [facility] Comment on above: Result Comment: The validity of the calculated GFR GFRAA in patients over70 years has not been determined. Clinical correlation isessential. Performed By: #### L 100.0100, L500.2500 ####[facility] [address] [place], [address] ECRCL 53.96 ml/min Normal [facility] Comment on above: Performed By: #### L 100.0100, L500.2500 ####[facility] [address] [place], [address] EST GFR - AA 94 mL/min Normal >60 [facility] Comment on above: Result Comment: Afri can [place] GFR Calc Performed By: #### L 100.0100, L500.2500 ####[facility] [address] [place], [address] GAP 6 Normal 5-15 [facility] Comment on above: Performed By: #### L 100.0100, L500.2500 ####[facility] [address] [place], [address] GFR/1.73 sq M.predicted among non-blacks MDRD (S/P/Bld) [Vol rate/Area] 78 mL/min/{1.73_m2} Normal >60 [facility] Comment on above: Result Comment: Non- GFR Calc Performed By: #### L 100.0100, L500.2500 ####[facility] [address] [place], [address] Glucose [Mass/Vol] 97 mg/dL Normal 74-106 [facility] Comment on above: Performed By: #### L 100.0100, L500.2500 ####[facility] [address] [place], [address] Potassium [Moles/Vol] 4.2 mmol/L Normal 3.5-5.1 [facility] Comment on above: Performed By: #### L 100.0100, L500.2500 ####[facility] [address] [place], [address] Sodium [Moles/Vol] 136 mmol/L Normal 136-145 [facility] Comment on above: Performed By: #### L 100.0100, L500.2500 ####[facility] [address] [place], [address] Urea nitrogen [Mass/Vol] 14 mg/dL Normal 7-18 [facility] Comment on above: Performed By: #### L 100.0100, L500.2500 ####[facility] [address] [place], [address] CBC W/Diff, Automatedon -04 01-2024 Absolute Lymph 1.21 X10 3/uL Normal 0.83-4.51 [facility] Comment on above: Performed By: #### L 100.0100, L500.2500 ####[facility] [address] [place], [address] Absolute Neut 5.9 X10 3/uL Normal 2.0-7.7 [facility] Comment on above: Performed By: #### L 100.0100, L500.2500 ####[facility] [address] [place], [address] Basophils/100 WBC (Bld) 0.7 % Normal 0-[address] [facility] Comment on above: Performed By: #### L 100.0100, L500.2500 ####[facility] [address] [place], [address] Eosinophils/100 WBC (Bld) 1.0 % Normal 0-5 [facility] Comment on above: Performed By: #### L 100.0100, L500.2500 ####[facility] [address] [place], [address] Erythrocyte distribution width (RBC) [Ratio] 13.0 % Normal 11.6-14.6 [facility] Comment on above: Performed By: #### L 100.0100, L500.2500 ####[facility] [address] [place], [address] Hematocrit (Bld) [Volume fraction] 38.0 % Normal 37-47 [facility] Comment on above: Performed By: #### L 100.0100, L500.2500 ####[facility] [address] [place], [address] Hemoglobin (Bld) [Mass/Vol] 12.7 g/dL Normal 12.0-15. 0 [facility] Comment on above: Performed By: #### L 100.0100, L500.2500 ####[facility] [address] [place], [address] IG% 0.400 Normal 0.0-0.9 [facility] Comment on above: Result Comment: IG% - Immature Granulocytes (promyelocytes, myelocytes andmetamyelocytes) > 1% indicates that a LEFT SHIFT is Present. Performed By: #### L 100.0100, L500.2500 ####[facility] [address] [place], [address] Lymphocytes/100 WBC (Bld) 15.1 % Low 19-41 [facility] Comment on above: Performed By: #### L 100.0100, L500.2500 ####[facility] [address] [place], [address] MCH (RBC) [Entitic mass] 32.4 pg High 27.0-32.0 [facility] Comment on above: Performed By: #### L 100.0100, L500.2500 ####[facility] [address] [place], [address] MCHC (RBC) [Mass/Vol] 33.4 g/dL Normal 32-36 [facility] Comment on above: Performed By: #### L 100.0100, L500.2500 ####[facility] [address] [place], [address] MCV (RBC) [Entitic vol] 96.9 fL Normal 81-99 [facility] Comment on above: Performed By: #### L 100.0100, L500.2500 ####[facility] [address] [place], [address] Monocytes/100 WBC (Bld) 9.0 % Normal 0-10 [facility] Comment on above: Performed By: #### L 100.0100, L500.2500 ####[facility] [address] [place], [address] Neutrophils/100 WBC (Bld) 73.8 % High 47-70 [facility] Comment on above: Performed By: #### L 100.0100, L500.2500 ####[facility] [address] [place], [address] Nucleated RBC (Bld) [#/Vol] 0 10*3/uL Normal 0-5 [facility] Comment on above: Performed By: #### L 100.0100, L500.2500 ####[facility] [address] [place], [address] Platelet mean volume (Bld) [Entitic vol] 9.1 fL Normal 6.2-12.0 [facility] Comment on above: Performed By: #### L 100.0100, L500.2500 ####[facility] [address] [place], [address] Platelets (Bld) [#/Vol] 296 10*3/uL Normal 150-450 [facility] Comment on above: Performed By: #### L 100.0100, L500.2500 ####[facility] [address] [place], [address] RBC (Bld) [#/Vol] 3.92 10*6/uL Low 4.2-5.4 [facility] Comment on above: Performed By: #### L 100.0100, L500.2500 ####[facility] [address] [place], [address] RDW SD 46.2 fl High 35.1-43.9 [facility] Comment on above: Performed By: #### L 100.0100, L500.2500 ####[facility] [address] [place], [address] WBC (Bld) [#/Vol] 8.0 10*3/uL Normal 4.4-11.0 [facility] Comment on above: Performed By: #### L 100.0100, L500.2500 ####[facility] [address] [place], [address] Emergency Department Summary on 04-11-2024 Emergency Department Summary Normal [facility] H AND P Exam - Hospitaliston 04-11-2024 H&P Exam - Hospitalist Normal [facility] Lumbar Spine 2 or 3 Viewson 04-11-2024 Lumbar Spine 2 or 3 Views Normal [facility] Emergency Department Summary on 03-30-2024 Emergency Department Summary Normal [facility] HIP, UNI W/ Pelvis 2-3 Views on 03-30-2024 HIP, UNI W/ Pelvis 2-3 Views Normal [facility] Lumbar Spine 2 or 3 Viewson 03-30-2024 Lumbar Spine 2 or 3 Views Normal [facility] Brain/Head without Contrasto n 02-25-2024 Brain/Head without Contrast Normal [facility] Emergency Department Summary on 02-25-2024 Emergency Department Summary Normal [facility] Spine Cervical without Contr ason 02-25-2024 Spine Cervical without Contras Normal [facility] Gastroenterology Visit Repor ton 02-23-2024 Gastroenterology Visit Report Normal [facility] Re-Evaluation - PT (1)on Re-Evaluation - PT (1) Normal [facility] Absolute lymphocyte countOrd ered By: Michael Snowden on 05-28-2023 Lymphocytes Auto (Unsp spec) [#/Vol] 1.31 10*3/uL 0.83-4.51 [facility] Automated lymphocyte count a s percentage of total leukocytesOrdered By: Michael Snowden on 05-28-2023 Lymphocytes/100 WBC Auto (Unsp spec) 20.5 % 19-41 [facility] Basophil percentageOrdered B y: Michael Sp on 05-28-2023 Basophils/100 WBC (Bld) 0.5 % 0-[address] [facility] Bilirubin [Mass/Vol] 0.80 mg/dL 0.20-1.00 [facility] Comment on above: For patients on eltr ombopag therapy, use of Dimension [place] TBIL is not recommended. Chloride [Moles/Vol] 106 mmol/L 98-107 [facility] Cholesterol [Mass/Vol] 168 mg/dL <200 [facility] Comment on above: <200 mg/dL Desirable 200-240 mg/dL Borderline >240 mg/dL High Risk Eosinophils/100 WBC (Bld) 2.4 % 0-5 [facility] Glucose [Mass/Vol] 87 mg/dL 74-106 [facility] Hemoglobin (Bld) [Mass/Vol] 12.7 g/dL 12.0-15. 0 [facility] Monocytes/100 WBC (Bld) 8.9 % 0-[address] [facility] Neutrophils (Bld) [#/Vol] 4.3 10*3/uL 2.0-7.7 [facility] Neutrophils/100 WBC (Bld) 67.4 % 47-70 [facility] Potassium [Moles/Vol] 4.0 mmol/L 3.5-5.1 [facility] Protein [Mass/Vol] 7.6 g/dL 6.4-8.2 [facility] Sodium [Moles/Vol] 139 mmol/L 136-145 [facility] Triglyceride [Mass/Vol] 103 mg/dL <[address] [facility] Comment on above: The drugs N-Acetylcy steine and Metamizole may falsely depress this assay.Serum Triglycerides Reference Interval Normal <150 mg/dL Borderline high 150 - 199 mg/dL High 200 - 499 mg/dL Very High > or = 500 mg/dL WBC (Bld) [#/Vol] 6.4 10*3/uL 4.4-11.0 [facility] Determination of erythrocyte mean corpuscular volume (MCV)Ordered By: Michael Snowden on 05-28-2023 MCV (RBC) [Entitic vol] 100.8 fL 81-[address] [facility] Erythrocyte distribution wid th ratioOrdered By: Michael Snowden on 05-28-2023 Erythrocyte distribution width (RBC) [Ratio] 13.2 % 11.6-14.6 [facility] Erythrocyte distribution wid th standard deviationOrdered By: Michael Snowden on 05-28-2023 Erythrocyte distribution width (RBC) [Entitic vol] 48.9 fL 35.1-43.9 [facility] Hematocrit Auto (Bld) [Volum e fraction]Ordered By: [facility] Sp 05-28-2023 Hematocrit (Bld) [Volume fraction] 39.4 % 37-47 [facility] Immature granulocytes/100 WB C Auto (Bld)Or[facility] Immature granulocytes/100 WBC (Bld) 0.300 % 0.0-0.9 [facility] Comment on above: IG% - Immature Granu locytes (promyelocytes, myelocytes and metamyelocytes) > 1% indicates that a LEFT SHIFT is Present. Laboratory - Chemistry and C hemistry - challengeOrdered By: Michael Snowden on 05-28-2023 Albumin/Globulin [Mass ratio] 0.8 {ratio} 0.9-2.4 [facility] ALP [Catalytic activity/Vol] 78 U/L 45-117 [facility] ALT [Catalytic activity/Vol] 29 U/L 13-56 [facility] Cholesterol in HDL [Mass/Vol] 70 mg/dL >40 [facility] Comment on above: The drugs N-Acetylcy steine and Metamizole may falsely depress this assay. Reference Range HDL <40 mg/dL Low HDL Cholesterol HDL >or= 60 mg/dL High HDL Cholesterol Cholesterol in LDL [Mass/Vol] 77 mg/dL 0-130 [facility] CO2 [Moles/Vol] 28.0 mmol/L 21.0-32.0 [facility] Globulin (S) [Mass/Vol] 4.2 g/dL 2.2-4.[address] [facility] Urea nitrogen/Creatinine [Mass ratio] 22.7 mg/mg 10-20 [facility] Laboratory - Hematology and Cell countsOrdered By: Michael Snowden on 05-28-2023 MCH (RBC) [Entitic mass] 32.5 pg 27.0-32.0 [facility] MCHC (RBC) [Mass/Vol] 32.2 g/dL 32-36 [facility] Nucleated RBC/100 WBC (Bld) [Ratio] 0 % 0-5 [facility] Platelet mean volume (Bld) [Entitic vol] 9.8 fL 6.2-12.0 [facility] Platelets (Bld) [#/Vol] 219 10*3/uL 150-450 [facility] No Panel InformationOrdered By: Michael Snowden on 05-28-2023 Estimated GFR (MDRD) Amer 97 mL/min >60 [facility] Comment on above: GFR Calc Estimated GFR (MDRD) Non-Af Amer 80 mL/min >60 [facility] Comment on above: Non- GFR Calc Vitamin D 25-Hydroxy 81.9 ng/mL [facility] Comment on above: Vitamin D 25(OH) Sta tus Range Deficiency <20 ng/mL (50nmol/L) Insufficiency 20 - 30 ng/mL (50 - 75 nmol/L) Sufficiency 30 - 100 ng/mL (75 - 250 nmol/L) Toxicity >100 ng/mL (>250 nmol/L) VLDL Cholesterol 21 mg/dL 5-40 [facility] RBC Auto (Bld) [#/Vol]Ordere d By: Michael Snowden on 05-28-2023 RBC (Bld) [#/Vol] 3.91 10*6/uL 4.2-5.4 [facility] Serum or plasma calcium gianluca urement (mass/volume)Ordered By: Michael Snowden on 05-28-2023 Calcium [Mass/Vol] 9.0 mg/dL 8.5-10.1 [facility] Serum or plasma creatinine m easurement (mass/volume)Ordered By: Michael Snowden on 05-28-2023 Creatinine [Mass/Vol] 0.75 mg/dL 0.55-1.02 [facility] Comment on above: The validity of the calculated GFR & GFRAA in patients over 70 years has not been determined. Clinical correlation is essential. Serum or plasma thyroid stim ulating hormone (TSH) measurement (units/volume)Ordered By: Michael Snowden on 05-28-2023 TSH Qn 1.09 uIU/mL 0.358-3.74 [facility] Serum or plasma urea nitroge n measurement (mass/volume)Ordered By: Michael Snowden on 05-28-2023 Urea nitrogen [Mass/Vol] 17 mg/dL 7-18 [facility] Thin prep Papanicolaou smear with manual screeningOrdered By: Michael Snowden on 05-28-2023 Thin prep Papanicolaou smear with manual screening 3.4 g/dL 3.2-5.0 [facility] Thin prep Papanicolaou smear with manual screening 23 U/L 15-37 [facility] Thin prep Papanicolaou smear with manual screening 5 5-15 [facility] Absolute lymphocyte countOrd ered By: Gaetano Cleary on 05-09-2023 Lymphocytes Auto (Unsp spec) [#/Vol] 1.22 10*3/uL 0.83-4.51 [facility] Automated lymphocyte count a s percentage of total leukocytesOrdered By: Gaetano Cleary on 05-09-2023 Lymphocytes/100 WBC Auto (Unsp spec) 20.0 % 19-41 [facility] Basophil percentageOrdered B y: Gaetano Cleary on 05-09-2023 Basophils/100 WBC (Bld) 0.7 % 0-[address] [facility] Eosinophils/100 WBC (Bld) 2.3 % 0-5 [facility] Hemoglobin (Bld) [Mass/Vol] 12.3 g/dL 12.0-15. 0 [facility] Monocytes/100 WBC (Bld) 8.4 % 0-[address] [facility] Neutrophils (Bld) [#/Vol] 4.2 10*3/uL 2.0-7.7 [facility] Neutrophils/100 WBC (Bld) 68.1 % 47-70 [facility] WBC (Bld) [#/Vol] 6.1 10*3/uL 4.4-11.0 [facility] Determination of erythrocyte mean corpuscular volume (MCV)Ordered By: Gaetano Cleary on 05-09-2023 MCV (RBC) [Entitic vol] 100.8 fL 81-99 [facility] Erythrocyte distribution wid th ratioOrdered By: Gaetano Cleary on 05-09-2023 Erythrocyte distribution width (RBC) [Ratio] 13.2 % 11.6-14.6 [facility] Erythrocyte distribution wid th standard deviationOrdered By: Gaetano Cleary on 05-09-2023 Erythrocyte distribution width (RBC) [Entitic vol] 49.1 fL 35.1-43.9 [facility] Erythrocyte sedimentation ra teOrdered By: Gaetano Cleary on 05-09-2023 ESR (Bld) [Velocity] 18 mm/h 0-30 [facility] Hematocrit Auto (Bld) [Volum e fraction]Ordered By: Gaetano Cleary on 05-09-2023 Hematocrit (Bld) [Volume fraction] 39.9 % 37-47 [facility] Immature granulocytes/100 WB C Auto (Bld)Ordered By: Gaetano Cleary on 05-09-2023 Immature granulocytes/100 WBC (Bld) 0.500 % 0.0-0.9 [facility] Comment on above: IG% - Immature Granu locytes (promyelocytes, myelocytes and metamyelocytes) > 1% indicates that a LEFT SHIFT is Present. Laboratory - Hematology and Cell countsOrdered By: Gaetano Cleary on 05-09-2023 MCH (RBC) [Entitic mass] 31.1 pg 27.0-32.0 [facility] MCHC (RBC) [Mass/Vol] 30.8 g/dL 32-36 [facility] Nucleated RBC/100 WBC (Bld) [Ratio] 0 % 0-5 [facility] Platelet mean volume (Bld) [Entitic vol] 9.8 fL 6.2-12.0 [facility] Platelets (Bld) [#/Vol] 225 10*3/uL 150-450 [facility] No Panel InformationOrdered By: Gaetano Cleary on 05-09-2023 C-Reactive Protein Extended Range < 2.90 mg/L 0.0-3.0 [facility] Comment on above: C-Reactive Protein ( CRP) provides useful information for thediagnosis, therapy and monitoring of inflammatory processesand associated diseases. For the evaluation of Relative Riskfor Cardiovascular Disease, a High Sensitivity CRP (HSCRP)should be ordered. RBC Auto (Bld) [#/Vol]Ordere d By: Gaetano Cleary on 05-09-2023 RBC (Bld) [#/Vol] 3.96 10*6/uL 4.2-5.4 [facility] Absolute lymphocyte countOrd ered By: Michael Snowden on 11-27-2022 Lymphocytes Auto (Unsp spec) [#/Vol] 1.24 10*3/uL 0.83-4.51 [facility] Basophil percentageOrdered B y: Michael Snowden on 11-27-2022 Basophils/100 WBC (Bld) 0.8 % 0-[address] [facility] Bilirubin [Mass/Vol] 0.30 mg/dL 0.20-1.00 [facility] Comment on above: For patients on eltr ombopag therapy, use of Dimension [place] TBIL is not recommended. Chloride [Moles/Vol] 110 mmol/L 98-107 [facility] Cholesterol [Mass/Vol] 169 mg/dL <200 [facility] Comment on above: <200 mg/dL Desirable 200-240 mg/dL Borderline >240 mg/dL High Risk Eosinophils/100 WBC (Bld) 2.5 % 0-5 [facility] Glucose [Mass/Vol] 93 mg/dL 74-106 [facility] Neutrophils (Bld) [#/Vol] 3.3 10*3/uL 2.0-7.7 [facility] Neutrophils/100 WBC (Bld) 63.1 % 47-70 [facility] Potassium [Moles/Vol] 4.1 mmol/L 3.5-5.1 [facility] Protein [Mass/Vol] 7.4 g/dL 6.4-8.2 [facility] Sodium [Moles/Vol] 143 mmol/L 136-145 [facility] Triglyceride [Mass/Vol] 57 mg/dL <[address] [facility] Comment on above: The drugs N-Acetylcy steine and Metamizole may falsely depress this assay.Serum Triglycerides Reference Interval Normal <150 mg/dL Borderline high 150 - 199 mg/dL High 200 - 499 mg/dL Very High > or = 500 mg/dL WBC (Bld) [#/Vol] 5.2 10*3/uL 4.4-11.0 [facility] Blood erythrocytes count (nu mber/volume)Ordered By: Michael Snowden on 11-27-2022 RBC (Bld) [#/Vol] 3.78 10*6/uL 4.2-5.4 [facility] Blood hemoglobin measurement (mass/volume)Ordered By: Michael Snowden on 11-27-2022 Hemoglobin (Bld) [Mass/Vol] 11.9 g/dL 12.0-15. 0 [facility] Blood lymphocytes/100 leukoc ytesOrdered By: Michael Snowden on 11-27-2022 Lymphocytes/100 WBC (Bld) 23.8 % 19-41 [facility] Blood monocytes/100 leukocyt esOrdered By: Michael Sp on 11-27-2022 Monocytes/100 WBC (Bld) 9.4 % 0-10 [facility] Blood platelet mean volumeOr dered By: Michael Snowden on 11-27-2022 Platelet mean volume (Bld) [Entitic vol] 10.0 fL 6.2-12.0 [facility] Determination of erythrocyte mean corpuscular volume (MCV)Ordered By: Michael Snowden on 11-27-2022 MCV (RBC) [Entitic vol] 100.0 fL 81-[address] [facility] Hematocrit Auto (Bld) [Volum e fraction]Ordered By: Michael Sp on 11-27-2022 Hematocrit (Bld) [Volume fraction] 37.8 % 37-47 [facility] Laboratory - Chemistry and C hemistry - challengeOrdered By: Michael Snowden on 11-27-2022 ALP [Catalytic activity/Vol] 68 U/L 45-117 [facility] ALT [Catalytic activity/Vol] 22 U/L 13-56 [facility] CO2 [Moles/Vol] 28.0 mmol/L 21.0-32.0 [facility] Globulin (S) [Mass/Vol] 4.1 g/dL 2.2-4.[address] [facility] Urea nitrogen/Creatinine [Mass ratio] 21.3 mg/mg 10-20 [facility] Laboratory - Hematology and Cell countsOrdered By: Michael Snowden on 11-27-2022 Erythrocyte distribution width (RBC) [Entitic vol] 47.8 fL 35.1-43.9 [facility] Erythrocyte distribution width (RBC) [Ratio] 13.1 % 11.6-14.6 [facility] Immature granulocytes/100 WBC (Bld) 0.400 % 0.0-0.9 [facility] Comment on above: IG% - Immature Granu locytes (promyelocytes, myelocytes and metamyelocytes) > 1% indicates that a LEFT SHIFT is Present. MCH (RBC) [Entitic mass] 31.5 pg 27.0-32.0 [facility] Nucleated RBC/100 WBC (Bld) [Ratio] 0 % 0-5 [facility] MCHC Auto (RBC) [Mass/Vol]Or dered By: Michael Snowden on 11-27-2022 MCHC (RBC) [Mass/Vol] 31.5 g/dL 32-36 [facility] No Panel InformationOrdered By: Michael Snowden on 11-27-2022 Estimated GFR (MDRD) Amer 112 mL/min >60 [facility] Comment on above: GFR Calc Estimated GFR (MDRD) Non-Af Amer 93 mL/min >60 [facility] Comment on above: Non- GFR Calc Thyroid Stimulating Hormone (TSH) 0.84 uIU/mL 0.358-3.74 [facility] Vitamin D 25-Hydroxy 87.7 ng/mL [facility] Comment on above: Vitamin D 25(OH) Sta tus Range Deficiency <20 ng/mL (50nmol/L) Insufficiency 20 - 30 ng/mL (50 - 75 nmol/L) Sufficiency 30 - 100 ng/mL (75 - 250 nmol/L) Toxicity >100 ng/mL (>250 nmol/L) Platelets bldOrdered By: Michael Snowden on 11-27-2022 Platelets (Bld) [#/Vol] 214 10*3/uL 150-450 [facility] Serum or plasma albumin gianluca urement (mass/volume)Ordered By: Michael Snowden on 11-27-2022 Albumin [Mass/Vol] 3.3 g/dL 3.2-5.0 [facility] Serum or plasma albumin/glob ulin mass ratioOrdered By: Michael Snowden on 11-27-2022 Albumin/Globulin [Mass ratio] 0.8 {ratio} 0.9-2.4 [facility] Serum or plasma calcium gianluca urement (mass/volume)Ordered By: Michael Snowden on 11-27-2022 Calcium [Mass/Vol] 9.2 mg/dL 8.5-10.1 [facility] Serum or plasma cholesterol in HDL measurement (mass/volume)Ordered By: Michael Snowden 11-27-2022 Cholesterol in HDL [Mass/Vol] 66 mg/dL >40 [facility] Comment on above: The drugs N-Acetylcy steine and Metamizole may falsely depress this assay. Reference Range HDL <40 mg/dL Low HDL Cholesterol HDL >or= 60 mg/dL High HDL Cholesterol Serum or plasma cholesterol in VLDL measurement (mass/volume)Ordered By: Michael Snowden on 11-27-2022 Cholesterol in VLDL [Mass/Vol] 11 mg/dL 5-40 [facility] Serum or plasma creatinine m easurement (mass/volume)Ordered By: Michael Snowden 11-27-2022 Creatinine [Mass/Vol] 0.66 mg/dL 0.55-1.02 [facility] [facility] Comment on above: The validity of the calculated GFR & GFRAA in patients over 70 years has not been determined. Clinical correlation is essential. Serum or plasma low density lipoprotein (LDL) cholesterol measurement (mass/volume)Ordered By: Michael Snowden 11-27-2022 Cholesterol in LDL [Mass/Vol] 92 mg/dL 0-130 [facility] Serum or plasma urea nitroge n measurement (mass/volume)Ordered By: Michael Snowden 11-27-2022 Urea nitrogen [Mass/Vol] 14 mg/dL 7-18 [facility] Thin prep Papanicolaou smear with manual screeningOrdered By: Michael Snowden 11-27-2022 Thin prep Papanicolaou smear with manual screening 21 U/L 15-37 [facility] Thin prep Papanicolaou smear with manual screening 5 5-15 [facility] No Panel InformationOrdered By: Sae Brandt on 08-05-2022 Stool Calprotectin 32 ug/g 0-120 [facility] Comment on above: Concentration Interp retation Follow-Up<16 - 50 ug/g Normal None>50 -120 ug/g Borderline Re-evaluate in 4-6 weeks >120 ug/g Abnormal Repeat as clinically indicatedPerformed at: [facility] [id number] Director: Alaina Alex MD, Phone: [phone] Stool Pancreatic Elastase 202 >200 [facility] Comment on above: Result Units: ug [address]./g Severe Pancreatic Insufficiency: <100 Moderate Pancreatic Insufficiency: 100 - 200 Normal: >200Performed at: [facility] [id number] Director: Alaina Alex MD, Phone: [phone] Stool lactoferrin detection by immunoassayOrdered By: Sae Brandt on 08-05-2022 Lactoferrin IA Ql (Stl) [facility] Lactoferrin IA Ql (Stl) [facility] Absolute lymphocyte countOrd ered By: Sae Brandt on 06-07-2022 Lymphocytes Auto (Unsp spec) [#/Vol] 1.34 10*3/uL 0.83-4.51 [facility] Atypical perinuclear antineu trophil cytoplasmic antibodies measurementOrdered By: Sae Brandt on 06-07-2022 Neutrophil cytoplasmic Ab.perinuclear.atypical IF (S) [Titer] <1:20 titer Neg:<1:20 [facility] Comment on above: The atypical pANCA p attern has been observed in asignificant percentage of patients with ulcerative colitis,primary sclerosing cholangitis and autoimmune hepatitis.Performed at: [facility] [id number] Director: Olivier Jenkisn PhD, Phone: [phone] at: [facility] [id number] Director: Alaina Alex MD, Phone: [phone] Basophil percentageOrdered B y: Sae Brandt on 06-07-2022 Basophil percentage < 0.2 AI 0.0-0.9 [facility] Basophils/100 WBC (Bld) 0.9 % 0-[address] [facility] Bilirubin [Mass/Vol] 0.40 mg/dL 0.20-1.00 [facility] Comment on above: For patients on eltr ombopag therapy, use of Dimension [place] TBIL is not recommended. Chloride [Moles/Vol] 103 mmol/L 98-107 [facility] Eosinophils/100 WBC (Bld) 2.3 % 0-5 [facility] Glucose [Mass/Vol] 85 mg/dL 74-106 [facility] LDH [Catalytic activity/Vol] 226 U/L 84-246 [facility] Neutrophils (Bld) [#/Vol] 4.5 10*3/uL 2.0-7.7 [facility] Neutrophils/100 WBC (Bld) 67.7 % 47-70 [facility] Potassium [Moles/Vol] 3.6 mmol/L 3.5-5.1 [facility] Protein [Mass/Vol] 7.6 g/dL 6.4-8.2 [facility] Sodium [Moles/Vol] 140 mmol/L 136-145 [facility] WBC (Bld) [#/Vol] 6.6 10*3/uL 4.4-11.0 [facility] Blood erythrocytes count (nu mber/volume)Ordered By: Sae Brandt on 06-07-2022 RBC (Bld) [#/Vol] 4.03 10*6/uL 4.2-5.4 [facility] Blood hemoglobin measurement (mass/volume)Ordered By: Sae Brandt on 06-07-2022 Hemoglobin (Bld) [Mass/Vol] 13.0 g/dL 12.0-15. 0 [facility] Blood lymphocytes/100 leukoc ytesOrdered By: Sae Brandt on 06-07-2022 Lymphocytes/100 WBC (Bld) 20.2 % 19-41 [facility] Blood monocytes/100 leukocyt esOrdered By: Sae Brandt on 06-07-2022 Monocytes/100 WBC (Bld) 8.6 % 0-[address] [facility] Blood platelet mean volumeOr dered By: Sae Brandt on 06-07-2022 Platelet mean volume (Bld) [Entitic vol] 9.5 fL 6.2-12.0 [facility] Determination of erythrocyte mean corpuscular volume (MCV)Ordered By: Sae Brandt on 06-07-2022 MCV (RBC) [Entitic vol] 99.5 fL 81-[address] [facility] Erythrocyte sedimentation ra teOrdered By: Sae Brandt on 06-07-2022 ESR (Bld) [Velocity] 30 mm/h 0-30 [facility] Hematocrit Auto (Bld) [Volum e fraction]Ordered By: Sae Brandt on 06-07-2022 Hematocrit (Bld) [Volume fraction] 40.1 % 37-47 [facility] Interpretation of serum or p lasma protein pattern by immunofixation (narrative resultOrdered By: Sae Brandt on 06-07-2022 Protein Fractions Immunofixation Micheal [Interp] See comment [facility] Comment on above: NOT OBSERVED Laboratory - Chemistry and C hemistry - challengeOrdered By: Sae Brandt on 06-07-2022 ALP [Catalytic activity/Vol] 72 U/L 45-117 [facility] ALT [Catalytic activity/Vol] 25 U/L 13-56 [facility] CO2 [Moles/Vol] 29.0 mmol/L 21.0-32.0 [facility] Urea nitrogen/Creatinine [Mass ratio] 16.9 mg/mg 10-20 [facility] Laboratory - Hematology and Cell countsOrdered By: Sae Brandt on 06-07-2022 Erythrocyte distribution width (RBC) [Entitic vol] 48.0 fL 35.1-43.9 [facility] Erythrocyte distribution width (RBC) [Ratio] 13.1 % 11.6-14.6 [facility] Immature granulocytes/100 WBC (Bld) 0.300 % 0.0-0.9 [facility] Comment on above: IG% - Immature Granu locytes (promyelocytes, myelocytes and metamyelocytes) > 1% indicates that a LEFT SHIFT is Present. MCH (RBC) [Entitic mass] 32.3 pg 27.0-32.0 [facility] Nucleated RBC/100 WBC (Bld) [Ratio] 0 % 0-5 [facility] MCHC Auto (RBC) [Mass/Vol]Or dered By: Sae Friend on 06-07-2022 MCHC (RBC) [Mass/Vol] 32.4 g/dL 32-36 [facility] No Panel InformationOrdered By: Sae Brandt on 06-07-2022 Addendum Document Comment . [facility] Comment on above: Protein electrophore sis scan will follow via computer,mail, or correspondence section supervisor delivery. Centromere B Antibody 0.3 AI 0.0-0.9 [facility] Endomysial IgA Antibody Negative Negative [facility] Estimated GFR (MDRD) Amer 94 mL/min >60 [facility] Comment on above: GFR Calc Estimated GFR (MDRD) Non-Af Amer 78 mL/min >60 [facility] Comment on above: Non- GFR Calc Immunoglobulin E 25 IU/mL 6-495 [facility] Miscellaneous Test See comment [facility] Comment on above: TEST RESULT LIMITSIB D [...] developed and its performance characteristics determined by [facility]. It has not been cleared or approved by the Food and Drug Administration. The FDA has determined that such clearance or approval is not necessary.Atypical pANCA Negative Negative Comments Pattern is not suggestive of Inflammatory Bowel Disease TESTING PERFORMED AT [facility]. ORIGINAL REPORT ON FILE IN LAB CONTAINS ADDITIONAL TEST SITE INFORMATION. STAGE RIGGER Antibody <0.2 AI 0.0-0.9 [facility] Platelets bldOrdered By: Raúl Brandt on 06-07-2022 Platelets (Bld) [#/Vol] 214 10*3/uL 150-450 [facility] Serum DNA double strand anti body assay (units/volume)Ordered By: Sae Brandt on 06-07-2022 DNA double strand Ab Qn (S) 5 [IU]/mL 0-9 [facility] Comment on above: Negative <5 Equivoca l 5 - 9 Positive >9 Serum Jaci-1 antibody assay (u nits/volume)Ordered By: Sae Brandt on 06-07-2022 Jaci-1 extractable nuclear Ab Qn (S) <0.2 AI 0.0-0.9 [facility] Serum Scl-70 extractable nuc lear antibody assay (units/volume)Ordered By: Sae Brandt on 06-07-2022 SCL-70 extractable nuclear Ab Qn (S) <0.2 AI 0.0-0.9 [facility] Serum Espinosa extractable nucl ear antibody detectionOrdered By: Sae Brandt on 06-07-2022 Espinosa extractable nuclear Ab Ql (S) <0.2 AI 0.0-0.9 [facility] Serum [id number] measu rement by electrophoresisOrdered By: Sae Brandt on 06-07-2022 Alpha 1 globulin Elph [Mass/Vol] 0.3 g/dL 0.0-0.4 [facility] Alpha 1 globulin Elph [Mass/Vol] 0.7 g/dL 0.4-1.0 [facility] Serum classic neutrophil cyt oplasmic antibody assay (units/volume)Ordered By: Sae Brandt on 06-07-2022 Neutrophil cytoplasmic Ab.classic Qn (S) <1:20 titer Neg:<1:20 [facility] Serum globulin measurement ( mass/volume)Ordered By: Sae Brandt on 06-07-2022 Globulin (S) [Mass/Vol] 3.6 g/dL 2.2-3.[address] [facility] Serum or plasma C reactive p rotein measurement (mass/volume)Ordered By: Sae Brandt on 06-07-2022 CRP [Mass/Vol] mg/L 0.0-3.0 [facility] Comment on above: C-Reactive Protein ( CRP) provides useful information for thediagnosis, therapy and monitoring of inflammatory processesand associated diseases. For the evaluation of Relative Riskfor Cardiovascular Disease, a High Sensitivity CRP (HSCRP)should be ordered. Serum or plasma IgA measurem ent (mass/volume)Ordered By: Sae Brandt on 06-07-2022 IgA [Mass/Vol] 338 mg/dL 64-422 [facility] Serum or plasma IgG measurem ent (mass/volume)Ordered By: Sae Brandt on 06-07-2022 IgG [Mass/Vol] 1428 mg/dL [phone] [facility] Serum or plasma IgM measurem ent (mass/volume)Ordered By: Sae Brnadt on 06-07-2022 IgM [Mass/Vol] 92 mg/dL 26-217 [facility] Serum or plasma albumin gianluca urement (mass/volume)Ordered By: Sae Brandt on 06-07-2022 Albumin [Mass/Vol] 3.6 g/dL 2.9-4.4 [facility] Serum or plasma albumin/glob ulin mass ratioOrdered By: Sae Brandt on 06-07-2022 Albumin/Globulin [Mass ratio] 0.9 {ratio} 0.9-2.4 [facility] Serum or plasma beta globuli n measurement by electrophoresis (mass/volume)Ordered By: Sae Brandt on 06-07-2022 Beta globulin Elph [Mass/Vol] 1.0 g/dL 0.7-1.3 [facility] Serum or plasma calcium gianluca urement (mass/volume)Ordered By: Sae Brandt on 06-07-2022 Calcium [Mass/Vol] 9.5 mg/dL 8.5-10.1 [facility] Serum or plasma creatinine m easurement (mass/volume)Ordered By: Sae Brandt on 06-07-2022 Creatinine [Mass/Vol] 0.77 mg/dL 0.55-1.02 [facility] Comment on above: The validity of the calculated GFR & GFRAA in patients over 70 years has not been determined. Clinical correlation is essential. Serum or plasma gamma globul in measurement by electrophoresis (mass/volume)Ordered By: Sae Brandt on 06-07-2022 Gamma globulin Elph [Mass/Vol] 1.6 g/dL 0.4-1.8 [facility] Serum or plasma immunoelectr ophoresis interpretation (nominal result)Ordered By: Sae Brandt on 06-07-2022 Interpretation IEP [Interp] Comment . [facility] Comment on above: No monoclonality det ected. Serum or plasma urea nitroge n measurement (mass/volume)Ordered By: Sae Brandt on 06-07-2022 Urea nitrogen [Mass/Vol] 13 mg/dL 7-18 [facility] Serum perinuclear neutrophil cytoplasmic antibody titer by immunofluorescenceOrdered By: Sae Brandt on 06-07-2022 Neutrophil cytoplasmic Ab.perinuclear IF (S) [Titer] <1:20 titer Neg:<1:20 [facility] Comment on above: The presence of posi tive fluorescence exhibiting P-ANCA orC-ANCA patterns alone is not specific for the diagnosis ofWegener's Granulomatosis (WG) or microscopic polyangiitis.Decisions about treatment should not be based solely onANCA IFA results. The [employer] ANCA [employer] Consensusrecommends follow up testing of positive sera with both [place]-3 and MPO-ANCA enzyme immunoassays. As many as 5% serumsamples are positive only by EIA. Ref. AM J Clin [id number];111:507-513. Serum tissue transglutaminas e IgA antibody assay (units/volume)Ordered By: Sae Brandt on 06-07-2022 tTG IgA Qn (S) <2 U/mL 0-3 [facility] Comment on above: Negative 0 - 3 Weak Positive 4 - 10 Positive >10 Tissue Transglutaminase (tTG) has been identified as the endomysial antigen. Studies have demonstr- ated that endomysial IgA antibodies have over 99% specificity for gluten sensitive enteropathy. Thin prep Papanicolaou smear with manual screeningOrdered By: Sae Brandt on 06-07-2022 Thin prep Papanicolaou smear with manual screening 23 U/L 15-37 [facility] Thin prep Papanicolaou smear with manual screening 8 5-15 [facility] Thin prep Papanicolaou smear with manual screening 1.1 0.7-1.7 [facility] Total protein bloodOrdered B y: Sae Brandt on 06-07-2022 Protein [Mass/Vol] 7.2 g/dL 6.0-8.5 [facility] Absolute lymphocyte countOrd ered By: Dr. Snowden on 03-26-2022 Lymphocytes Auto (Unsp spec) [#/Vol] 1.21 10*3/uL 0.83-4.51 [facility] Basophil percentageOrdered B y: Dr. Snowden on 03-26-2022 Basophils/100 WBC (Bld) 0.5 % 0-1 [facility] Bilirubin [Mass/Vol] 0.40 mg/dL 0.20-1.00 [facility] Comment on above: For patients on eltr ombopag therapy, use of Dimension [place] TBIL is not recommended. Chloride [Moles/Vol] 104 mmol/L 98-107 [facility] Cholesterol [Mass/Vol] 176 mg/dL <200 [facility] Comment on above: <200 mg/dL Desirable 200-240 mg/dL Borderline >240 mg/dL High Risk Eosinophils/100 WBC (Bld) 1.9 % 0-5 [facility] Glucose [Mass/Vol] 88 mg/dL 74-106 [facility] Neutrophils (Bld) [#/Vol] 4.0 10*3/uL 2.0-7.7 [facility] Neutrophils/100 WBC (Bld) 67.6 % 47-70 [facility] Potassium [Moles/Vol] 4.1 mmol/L 3.5-5.1 [facility] Protein [Mass/Vol] 7.0 g/dL 6.4-8.2 [facility] Sodium [Moles/Vol] 140 mmol/L 136-145 [facility] Triglyceride [Mass/Vol] 113 mg/dL <[address] [facility] Comment on above: The drugs N-Acetylcy steine and Metamizole may falsely depress this assay.Serum Triglycerides Reference Interval Normal <150 mg/dL Borderline high 150 - 199 mg/dL High 200 - 499 mg/dL Very High > or = 500 mg/dL WBC (Bld) [#/Vol] 5.9 10*3/uL 4.4-11.0 [facility] Blood erythrocytes count (nu mber/volume)Ordered By: Dr. Snowden on 03-26-2022 RBC (Bld) [#/Vol] 4.01 10*6/uL 4.2-5.4 [facility] Blood hemoglobin measurement (mass/volume)Ordered By: Dr. Snowden on 03-26-2022 Hemoglobin (Bld) [Mass/Vol] 12.6 g/dL 12.0-15. 0 [facility] Blood lymphocytes/100 leukoc ytesOrdered By: Dr. Snowden on 03-26-2022 Lymphocytes/100 WBC (Bld) 20.4 % 19-41 [facility] Blood monocytes/100 leukocyt esOrdered By: Dr. Snowden on 03-26-2022 Monocytes/100 WBC (Bld) 9.3 % 0-10 [facility] Blood platelet mean volumeOr dered By: Dr. Snowedn on 03-26-2022 Platelet mean volume (Bld) [Entitic vol] 10.1 fL 6.2-12.0 [facility] Determination of erythrocyte mean corpuscular volume (MCV)Ordered By: Dr. Snowden on 03-26-2022 MCV (RBC) [Entitic vol] 99.0 fL 81-[address] [facility] Hematocrit Auto (Bld) [Volum e fraction]Ordered By: Dr. Snowden on 03-26-2022 Hematocrit (Bld) [Volume fraction] 39.7 % 37-47 [facility] Laboratory - Chemistry and C hemistry - challengeOrdered By: Dr. Snowden on 03-26-2022 ALP [Catalytic activity/Vol] 64 U/L 45-117 [facility] ALT [Catalytic activity/Vol] 23 U/L 13-56 [facility] CO2 [Moles/Vol] 28.0 mmol/L 21.0-32.0 [facility] Globulin (S) [Mass/Vol] 3.6 g/dL 2.2-4.[address] [facility] Urea nitrogen/Creatinine [Mass ratio] 18.9 mg/mg 10-20 [facility] Laboratory - Hematology and Cell countsOrdered By: Dr. Snowden on 03-26-2022 Erythrocyte distribution width (RBC) [Entitic vol] 47.1 fL 35.1-43.9 [facility] Erythrocyte distribution width (RBC) [Ratio] 13.1 % 11.6-14.6 [facility] Immature granulocytes/100 WBC (Bld) 0.300 % 0.0-0.9 [facility] Comment on above: IG% - Immature Granu locytes (promyelocytes, myelocytes and metamyelocytes) > 1% indicates that a LEFT SHIFT is Present. MCH (RBC) [Entitic mass] 31.4 pg 27.0-32.0 [facility] Nucleated RBC/100 WBC (Bld) [Ratio] 0 % 0-5 [facility] MCHC Auto (RBC) [Mass/Vol]Or dered By: Dr. Snowden on 03-26-2022 MCHC (RBC) [Mass/Vol] 31.7 g/dL 32-36 [facility] No Panel InformationOrdered By: Dr. Snowden on 03-26-2022 Estimated GFR (MDRD) Amer 98 mL/min >60 [facility] Comment on above: GFR Calc Estimated GFR (MDRD) Non-Af Amer 81 mL/min >60 [facility] Comment on above: Non- GFR Calc Thyroid Stimulating Hormone (TSH) 0.92 uIU/mL 0.358-3.74 [facility] Vitamin D 25-Hydroxy 78.9 ng/mL [facility] Comment on above: Vitamin D 25(OH) Sta tus Range Deficiency <20 ng/mL (50nmol/L) Insufficiency 20 - 30 ng/mL (50 - 75 nmol/L) Sufficiency 30 - 100 ng/mL (75 - 250 nmol/L) Toxicity >100 ng/mL (>250 nmol/L) Platelets bldOrdered By: Dr. Snowden on 03-26-2022 Platelets (Bld) [#/Vol] 221 10*3/uL 150-450 [facility] Serum or plasma albumin gianluca urement (mass/volume)Ordered By: Dr. Snowden on 03-26-2022 Albumin [Mass/Vol] 3.4 g/dL 3.2-5.0 [facility] Serum or plasma albumin/glob ulin mass ratioOrdered By: Dr. Snowden on 03-26-2022 Albumin/Globulin [Mass ratio] 0.9 {ratio} 0.9-2.4 [facility] Serum or plasma calcium gianluca urement (mass/volume)Ordered By: Dr. Snowden on 03-26-2022 Calcium [Mass/Vol] 8.8 mg/dL 8.5-10.1 [facility] Serum or plasma cholesterol in HDL measurement (mass/volume)Ordered By: Dr. Snowden on 03-26-2022 Cholesterol in HDL [Mass/Vol] 60 mg/dL >40 [facility] Comment on above: The drugs N-Acetylcy steine and Metamizole may falsely depress this assay. Reference Range HDL <40 mg/dL Low HDL Cholesterol HDL >or= 60 mg/dL High HDL Cholesterol Serum or plasma cholesterol in VLDL measurement (mass/volume)Ordered By: Dr. Snowden on 03-26-2022 Cholesterol in VLDL [Mass/Vol] 23 mg/dL 5-40 [facility] Serum or plasma creatinine m easurement (mass/volume)Ordered By: Dr. Snowden on 03-26-2022 Creatinine [Mass/Vol] 0.74 mg/dL 0.55-1.02 [facility] Comment on above: The validity of the calculated GFR & GFRAA in patients over 70 years has not been determined. Clinical correlation is essential. Serum or plasma low density lipoprotein (LDL) cholesterol measurement (mass/volume)Ordered By: Dr. Snowden on 03-26-2022 Cholesterol in LDL [Mass/Vol] 93 mg/dL 0-130 [facility] Serum or plasma urea nitroge n measurement (mass/volume)Ordered By: Dr. Snowden on 03-26-2022 Urea nitrogen [Mass/Vol] 14 mg/dL 7-18 [facility] Thin prep Papanicolaou smear with manual screeningOrdered By: Dr. Snowden on 03-26-2022 Thin prep Papanicolaou smear with manual screening 18 U/L 15-37 [facility] Thin prep Papanicolaou smear with manual screening 8 5-15 [facility] Absolute lymphocyte counton 09-25-2021 Lymphocytes Auto (Unsp spec) [#/Vol] 1.32 10*3/uL 0.83-4.51 [facility] Work Phone: Basophil percentageon 2021 Basophils/100 WBC (Bld) 0.6 % 0-[address] [facility] Work Phone: [phone] Bilirubin [Mass/Vol] 0.40 mg/dL 0.20-1.00 [facility] Work Phone: Comment on above: For patients on eltr ombopag therapy, use of Dimension [place] TBIL is not recommended. Chloride [Moles/Vol] 106 mmol/L 98-107 [facility] Work Phone: Cholesterol [Mass/Vol] 170 mg/dL <200 [facility] Work Phone: [phone] Comment on above: <200 mg/dL Desirable 200-240 mg/dL Borderline >240 mg/dL High Risk Eosinophils/100 WBC (Bld) 2.4 % 0-5 [facility] Work Phone: Glucose [Mass/Vol] 96 mg/dL 74-106 [facility] Work Phone: Neutrophils (Bld) [#/Vol] 4.8 10*3/uL 2.0-7.7 [facility] Work Phone: Neutrophils/100 WBC (Bld) 68.8 % 47-70 [facility] Work Phone: Potassium [Moles/Vol] 3.9 mmol/L 3.5-5.1 [facility] Work Phone: Protein [Mass/Vol] 7.2 g/dL 6.4-8.2 [facility] Work Phone: Sodium [Moles/Vol] 141 mmol/L 136-145 [facility] Work Phone: [phone] Triglyceride [Mass/Vol] 93 mg/dL <[address] [facility] Work Phone: [phone] Comment on above: The drugs N-Acetylcy steine and Metamizole may falsely depress this assay.Serum Triglycerides Reference Interval Normal <150 mg/dL Borderline high 150 - 199 mg/dL High 200 - 499 mg/dL Very High > or = 500 mg/dL WBC (Bld) [#/Vol] 7.0 10*3/uL 4.4-11.0 [facility] Work Phone: [phone] Blood erythrocytes count (nu mber/volume)on 09-25-2021 RBC (Bld) [#/Vol] 4.05 10*6/uL 4.2-5.4 [facility] Work Phone: [phone] Blood hemoglobin measurement (mass/volume)on 09-25-2021 Hemoglobin (Bld) [Mass/Vol] 12.8 g/dL 12.0-15. 0 [facility] Work Phone: Blood lymphocytes/100 leukoc yteson 09-25-2021 Lymphocytes/100 WBC (Bld) 18.9 % 19-41 [facility] Work Phone: Blood monocytes/100 leukocyt eson 09-25-2021 Monocytes/100 WBC (Bld) 9.0 % 0-[address] [facility] Work Phone: Blood platelet mean volumeon 09-25-2021 Platelet mean volume (Bld) [Entitic vol] 10.1 fL 6.2-12.0 [facility] Work Phone: Determination of erythrocyte mean corpuscular volume (MCV)on 09-25-2021 MCV (RBC) [Entitic vol] 98.3 fL 81-[address] [facility] Work Phone: [phone] Hematocrit Auto (Bld) [Volum e fraction]on 09-25-2021 Hematocrit (Bld) [Volume fraction] 39.8 % 37-47 [facility] [facility] Work Phone: [phone] Laboratory - Chemistry and C hemistry - challengeon 09-25-2021 ALP [Catalytic activity/Vol] 62 U/L 45-117 [facility] Work Phone: [phone] ALT [Catalytic activity/Vol] 20 U/L 13-56 [facility] Work Phone: CO2 [Moles/Vol] 29.0 mmol/L 21.0-32.0 [facility] Work Phone: Globulin (S) [Mass/Vol] 3.7 g/dL 2.2-4.[address] [facility] Work Phone: Urea nitrogen/Creatinine [Mass ratio] 17.0 mg/mg 10-20 [facility] Work Phone: Laboratory - Hematology and Cell countson 09-25-2021 Erythrocyte distribution width (RBC) [Entitic vol] 47.1 fL 35.1-43.9 [facility] Work Phone: Erythrocyte distribution width (RBC) [Ratio] 13.2 % 11.6-14.6 [facility] Work Phone: Immature granulocytes/100 WBC (Bld) 0.300 % 0.0-0.9 [facility] Work Phone: Comment on above: IG% - Immature Granu locytes (promyelocytes, myelocytes and metamyelocytes) > 1% indicates that a LEFT SHIFT is Present. MCH (RBC) [Entitic mass] 31.6 pg 27.0-32.0 [facility] Work Phone: Nucleated RBC/100 WBC (Bld) [Ratio] 0 % 0-5 [facility] Work Phone: MCHC Auto (RBC) [Mass/Vol]on 09-25-2021 MCHC (RBC) [Mass/Vol] 32.2 g/dL 32-36 [facility] Work Phone: No Panel Informationon 09-25 Estimated GFR (MDRD) Amer 95 mL/min >60 [facility] Work Phone: Comment on above: GFR Calc Estimated GFR (MDRD) Non-Af Amer 78 mL/min >60 [facility] Work Phone: Comment on above: Non- GFR Calc Thyroid Stimulating Hormone (TSH) 0.89 uIU/mL 0.358-3.74 [facility] Work Phone: Vitamin D 25-Hydroxy 76.5 ng/mL [facility] Work Phone: Comment on above: Vitamin D 25(OH) Sta tus Range Deficiency <20 ng/mL (50nmol/L) Insufficiency 20 - 30 ng/mL (50 - 75 nmol/L) Sufficiency 30 - 100 ng/mL (75 - 250 nmol/L) Toxicity >100 ng/mL (>250 nmol/L) Platelets bldon 09-25-2021 Platelets (Bld) [#/Vol] 227 10*3/uL 150-450 [facility] Work Phone: Serum or plasma albumin gianluca urement (mass/volume)on 09-25-2021 Albumin [Mass/Vol] 3.5 g/dL 3.2-5.0 [facility] Work Phone: Serum or plasma albumin/glob ulin mass ratioon 09-25-2021 Albumin/Globulin [Mass ratio] 0.9 {ratio} 0.9-2.4 [facility] Work Phone: Serum or plasma calcium gianluca urement (mass/volume)on 09-25-2021 Calcium [Mass/Vol] 9.2 mg/dL 8.5-10.1 [facility] Work Phone: Serum or plasma cholesterol in HDL measurement (mass/volume)on 09-25-2021 Cholesterol in HDL [Mass/Vol] 60 mg/dL >40 [facility] Work Phone: Comment on above: The drugs N-Acetylcy steine and Metamizole may falsely depress this assay. Reference Range HDL <40 mg/dL Low HDL Cholesterol HDL >or= 60 mg/dL High HDL Cholesterol Serum or plasma cholesterol in VLDL measurement (mass/volume)on 09-25-2021 Cholesterol in VLDL [Mass/Vol] 19 mg/dL 5-40 [facility] Work Phone: Serum or plasma creatinine m easurement (mass/volume)on 09-25-2021 Creatinine [Mass/Vol] 0.76 mg/dL 0.55-1.02 [facility] Work Phone: Comment on above: The validity of the calculated GFR & GFRAA in patients over 70 years has not been determined. Clinical correlation is essential. Serum or plasma low density lipoprotein (LDL) cholesterol measurement (mass/volume)on 09-25-2021 Cholesterol in LDL [Mass/Vol] 91 mg/dL 0-130 [facility] Work Phone: Serum or plasma urea nitroge n measurement (mass/volume)on 09-25-2021 Urea nitrogen [Mass/Vol] 13 mg/dL 7-18 [facility] Work Phone: Thin prep Papanicolaou smear with manual screeningon 09-25-2021 Thin prep Papanicolaou smear with manual screening 15 U/L 15-37 [facility] Work Phone: Thin prep Papanicolaou smear with manual screening 6 5-15 [facility] Work Phone: Lab Report: Basic Metabolic Profile (BMP)on 12-17-2016 Anion gap 6 mmol/L Invalid Interpretation Code 5-15 [facility] Work Phone: BUN/Creatinine Ratio 14.8 RATIO Invalid Interpretation Code 10-20 [facility] Work Phone: Calcium 9.2 mg/dL Invalid Interpretation Code 8.5-10.1 [facility] Work Phone: Chloride 102 mmol/L Invalid Interpretation Code 98-107 [facility] Work Phone: CO2 30.0 mmol/L Invalid Interpretation Code 21.0-32.0 [facility] Work Phone: Creatinine 0.74 mg/dL Invalid Interpretation Code 0.55-1.02 [facility] Work Phone: eGFR (non-black) 82 mL/min/{1.73_m2} Invalid Interpretation Code >60 [facility] Work Phone: eGFR (non-black) 99 mL/min/{1.73_m2} Invalid Interpretation Code >60 [facility] Work Phone: Glucose 90 mg/dL Invalid Interpretation Code 70-110 [facility] Work Phone: [phone] Potassium 3.9 mmol/L Invalid Interpretation Code 3.5-5.1 [facility] Work Phone: [phone] Sodium 138 mmol/L Invalid Interpretation Code 136-145 [facility] Work Phone: [phone] Urea nitrogen 11 mg/dL Invalid Interpretation Code 7-18 [facility] Work Phone: [phone] Office Visiton 12-17-2016 Documentation of current medications (procedure) Done Invalid Interpretation Code [facility] Work Phone: [phone] Fall risk assessment Yes Invalid Interpretation Code [facility] Work Phone: [phone] Clinical Lists Update: Prelo nuclear supervising operator 06-07-2016 Left ventricular Ejection fraction 65-70 Invalid Interpretation Code [facility] Work Phone: [phone] Office Visiton 06-13-2015 Tobacco use CPHS Never smoker Invalid Interpretation Code [facility] Work Phone: [phone] External Other: Preferred Me thod of Contacton 03-08-2015 Patient's prefered method of contact phone Invalid Interpretation Code [facility] Work Phone: [phone] Office Visit: [facility] 03-08-20 15 Dietary management education, guidance, and counseling (procedure) yes Invalid Interpretation Code [facility] Work Phone: [phone] General cardiovascular disease 10Y risk [#] [place] 15 % Invalid Interpretation Code [facility] Work Phone: [phone] Clinical Lists Update: Pre nuclear supervising operator 11-12-2014 Magnesium 1.6 mg/dL Low [facility] Work Phone: [phone] Office Visiton 08-05-2014 cardiac risk group B Invalid Interpretation Code [facility] Work Phone: [phone] Clinical Lists Update: Pre nuclear supervising operator 05-23-2014 Cholesterol 171 mg/dL Invalid Interpretation Code [facility] Work Phone: [phone] HDL Cholesterol 46 mg/dL Invalid Interpretation Code [facility] Work Phone: [phone] LDL Cholesterol 109 mg/dL Invalid Interpretation Code [facility] Work Phone: [phone] Triglyceride 78 mg/dL Invalid Interpretation Code [facility] Work Phone: [phone] very low density lipoproteins 16 mg/dL Invalid Interpretation Code [facility] Work Phone: [phone] Clinical Lists Update: 05-22-2014 basophils as percent of blood leukocytes, manual count 0.5 % Invalid Interpretation Code [facility] Work Phone: [phone] eosinophils as percent of blood leukocytes, manual count 0.7 % Invalid Interpretation Code [facility] Work Phone: [phone] Erythrocytes (RBC) 4.37 10*6/uL Invalid Interpretation Code [facility] Work Phone: [phone] Hematocrit (HCT) 40.7 % Invalid Interpretation Code [facility] Work Phone: [phone] Hemoglobin (HGB) 13.9 g/dL Invalid Interpretation Code [facility] Work Phone: [phone] Lymphocytes/100 leukocytes 15.7 % Low [facility] Work Phone: [phone] MCH 31.8 pg Invalid Interpretation Code [facility] Work Phone: [phone] MCHC 34.2 g/dL Invalid Interpretation Code [facility] Work Phone: [phone] MCV 93.1 fL Invalid Interpretation Code [facility] Work Phone: [phone] Monocytes/100 leukocytes 6.6 % Invalid Interpretation Code [facility] Work Phone: [phone] neutrophils, band form as percent of blood leukocytes, manual count 76.3 % High [facility] Work Phone: [phone] Platelets 244 10*3/mm3 Invalid Interpretation Code [facility] Work Phone: [phone] RDW-CA 13.0 % Invalid Interpretation Code [facility] Work Phone: [phone] Thyroid stimulating hormone (TSH) 0.88 u[iU]/mL Invalid Interpretation Code [facility] Work Phone: [phone] WBC (Leukocytes) 6.1 10*3/uL Invalid Interpretation Code [facility] Work Phone: [phone] Clinical Lists Update: 06-23-2012 Albumin 4.0 g/dL Invalid Interpretation Code [facility] Work Phone: [phone] Albumin/Globulin Ratio 1.0 {ratio} Invalid Interpretation Code [facility] Work Phone: [phone] Alkaline phosphatase (ALP) 95 U/L Inval id Interpretation Code [facility] Work Phone: [phone] Aspartate aminotransferase (AST) 24 U/L Invalid Interpretation Code [facility] Work Phone: [phone] Bilirubin (total) 0.20 mg/dL Invalid Interpretation Code [facility] Work Phone: [phone] Globulin 3.9 g/dL Invalid Interpretation Code [facility] Work Phone: [phone] Protein 7.9 g/dL Invalid Interpretation Code [facility] Work Phone: [phone] Lab Reporton 06-13-2011 Alanine aminotransferase (ALT) 42 U/L Invalid Interpretation Code [facility] Work Phone: [phone] Bilirubin (direct) 0.12 mg/dL Invalid Interpretation Code [facility] Work Phone: [phone] Vital Signs Date Time Vital Sign Value Performing Clinician Facility 11-18-2024 15:25-0400 Body mass index (BMI) [Ratio] 30.31 kg/m2 Elzbieta Hernandez MD Work Phone: [facility] 11-18-2024 15:25-0400 Body temperature 97.59 [degF] Elzbieta Hernandez MD Work Phone: [facility] 11-18-2024 15:25-0400 Body weight 65.77 kg Elzbieta Hernandez MD Work Phone: [facility] 11-18-2024 15:25-0400 Heart rate 92 /min Elzbieta Hernandez MD Work Phone: [facility] 11-18-2024 15:25-0400 Respiratory rate 20 /min Elzbieta Hernandez MD Work Phone: [facility] 11-18-2024 15:25-0400 SaO2% (BldA) [Mass fraction] 97 % Elzbieta Hernandez MD Work Phone: [facility] 11-02-2024 08:27-0400 Body mass index (BMI) [Ratio] 30.3 kg/m2 Dr. Michael Snowden MD Work Phone: [facility] 11-02-2024 08:27-0400 Body weight 65.[address] Michael Snowden MD Work Phone: [facility] 11-02-2024 08:27-0400 Diastolic blood pressure 72 mm[Hg] Dr. Michael Snowden MD Work Phone: [facility] 11-02-2024 08:27-0400 Heart rate 95 /min Dr. Michael Snowden MD Work Phone: [facility] 11-02-2024 08:27-0400 Respiratory rate 18 /min Dr. Michael Snowden MD Work Phone: [facility] 11-02-2024 08:27-0400 SaO2% (BldA) [Mass fraction] 94 % Dr. Michael Snowden MD Work Phone: [facility] 11-02-2024 08:27-0400 Systolic blood pressure 104 mm[Hg] Dr. Michael Snowden MD Work Phone: [facility] 08-13-2024 07:56-0400 Diastolic blood pressure 103 mm[Hg] Seth Chowdary MD Work Phone: [facility] 08-13-2024 07:56-0400 Heart rate 98 /min Seth Chowdary MD Work Phone: [facility] 08-13-2024 07:56-0400 Systolic blood pressure 148 mm[Hg] Seth Chowdary MD Work Phone: [facility] 08-13-2024 07:52-0400 Body height 147.3 cm Seth Chowdary MD Work Phone: [facility] 08-13-2024 07:52-0400 Body mass index (BMI) [Ratio] 31.33 kg/m2 Seth Chowdary MD Work Phone: [facility] 08-13-2024 07:52-0400 Body weight 68 kg Seth Chowdary MD Work Phone: [facility] 08-13-2024 07:52-0400 Respiratory rate 18 /min Seth Chowdary MD Work Phone: [facility] 07-21-2024 12:56-0400 Body height 147.3 cm Jovanni Matthew MD Work Phone: [facility] 07-21-2024 12:56-0400 Body mass index (BMI) [Ratio] 31.35 kg/m2 Jovanni Matthew MD Work Phone: [facility] 07-21-2024 12:56-0400 Body weight 68.04 kg Jovanni Matthew MD Work Phone: [facility] 07-21-2024 12:56-0400 Diastolic blood pressure 75 mm[Hg] Jovanni Matthew MD Work Phone: [facility] 07-21-2024 12:56-0400 Heart rate 98 /min Jovanni Matthew MD Work Phone: [facility] 07-21-2024 12:56-0400 SaO2% (BldA) [Mass fraction] 96 % Jovanni Matthew MD Work Phone: [facility] 07-21-2024 12:56-0400 Systolic blood pressure 109 mm[Hg] Jovanni Matthew MD Work Phone: [facility] 05-21-2024 08:45-0500 Heart rate 71 /min Dr. Michael Snowden MD Work Phone: [facility] 05-21-2024 08:40-0500 Body temperature 98 [degF] Dr. Michael Snowden MD Work Phone: [facility] 05-21-2024 08:40-0500 Diastolic blood pressure 87 mm[Hg] Dr. Michael Snowden MD Work Phone: [facility] 05-21-2024 08:40-0500 Respiratory rate 17 /min Dr. Michael Snowden MD Work Phone: [facility] 05-21-2024 08:40-0500 SaO2% (BldA) [Mass fraction] 95 % Dr. Michael Snowden MD Work Phone: 6(763)778-432445 [place] [address] 05-21-2024 08:40-0500 Systolic blood pressure 144 mm[Hg] Dr. Michael Snowden MD Work Phone: 8(701)089-845718 [place] [address] 05-18-2024 11:00-0500 Body mass index (BMI) [Ratio] 32.5 kg/m2 Dr. Michael Snowden MD Work Phone: 6(059)234-215018 [place] [address] 05-18-2024 11:00-0500 Body weight 70.[address] Michael Snowden MD Work Phone: 9(631)308-058618 [place] [address] 05-15-2024 05:41-0500 Inhaled oxygen flow rate 97 L/min Dr. Michael Snowden MD Work Phone: 1(851)958-155018 [place] [address] 05-12-2024 13:31-0500 Body height 147.[address] Michael Snowden MD Work Phone: 2(173)753-751118 [place] [address] 04-16-2024 10:20-0500 Heart rate 70 /min Dr. Michael Snowden MD Work Phone: 3(640)387-048618 [place] [address] 04-16-2024 10:10-0500 Body temperature 98.3 [degF] Dr. Michael Snowden MD Work Phone: 1(784)492-866145 [place] [address] 04-16-2024 10:10-0500 Diastolic blood pressure 71 mm[Hg] Dr. Michael Snowden MD Work Phone: 0(514)126-969018 [place] [address] 04-16-2024 10:10-0500 Respiratory rate 18 /min Dr. Michael Snowden MD Work Phone: 8(427)840-703245 [place] [address] 04-16-2024 10:10-0500 SaO2% (BldA) [Mass fraction] 95 % Dr. Michael Snowden MD Work Phone: 0(290)207-795945 [place] [address] 04-16-2024 10:10-0500 Systolic blood pressure 109 mm[Hg] Dr. Michael Snowden MD Work Phone: 4(565)102-475845 [place] [address] 04-15-2024 15:36-0500 Body weight 70.[address] Michael Snowden MD Work Phone: 1(680)552-527418 [place] [address] 04-11-2024 14:41-0500 Body mass index (BMI) [Ratio] 32.5 kg/m2 Dr. Michael Snowden MD Work Phone: 5(901)608-891318 [place] [address] 03-31-2024 00:00-0500 Body temperature 98 [degF] Dr. Michael Snowden MD Work Phone: 4(175)538-701818 [place] [address] 03-31-2024 00:00-0500 Diastolic blood pressure 78 mm[Hg] Dr. Michael Snowden MD Work Phone: 0(913)424-194118 [place] [address] 03-31-2024 00:00-0500 Heart rate 84 /min Dr. Michael Snowden MD Work Phone: 9(964)456-618818 [place] [address] 03-31-2024 00:00-0500 Respiratory rate 16 /min Dr. Michael Snowden MD Work Phone: 3(312)680-182118 [place] [address] 03-31-2024 00:00-0500 SaO2% (BldA) [Mass fraction] 99 % Dr. Michael Snowden MD Work Phone: 3(868)782-476218 [place] [address] 03-31-2024 00:00-0500 Systolic blood pressure 145 mm[Hg] Dr. Michael Snowden MD Work Phone: 4(579)607-283118 [place] [address] 05-09-2023 13:06-0500 Body height 149.[address] Michael Snowden Work Phone: 3(859)903-202845 [place] [address] 05-09-2023 13:06-0500 Body mass index (BMI) [Ratio] 30.9 kg/m2 Dr. Michael Snowden Work Phone: 1(009)016-983645 [place] [address] 05-09-2023 13:06-0500 Body weight 69.[address] Michael Snowden Work Phone: 3(941)850-492918 [place] [address] 05-09-2023 13:06-0500 Diastolic blood pressure 86 mm[Hg] Dr. Michael Snowden Work Phone: [facility] 05-09-2023 13:06-0500 Heart rate 59 /min Dr. Michael Snowden Work Phone: 5(842)724-983745 [place] [address] 05-09-2023 13:06-0500 Respiratory rate 18 /min Dr. Michael Snowden Work Phone: 3(589)438-845245 [place] [address] 05-09-2023 13:06-0500 SaO2% (BldA) [Mass fraction] 95 % Dr. Michael Snowden Work Phone: 9(342)149-513645 [place] [address] 05-09-2023 13:06-0500 Systolic blood pressure 154 mm[Hg] Dr. Michael Snowden Work Phone: 3(419)971-077418 [place] [address] 01-06-2023 14:34-0400 Body height 149.[address] Michael Snowden Work Phone: 6(173)101-938518 [place] [address] 01-06-2023 14:34-0400 Body mass index (BMI) [Ratio] 29.9 kg/m2 Dr. Michael Snowden Work Phone: 0(593)334-671718 [place] [address] 01-06-2023 14:34-0400 Body weight 67.[address] Michael Snowden Work Phone: 1(429)863-591718 [place] [address] 01-06-2023 14:34-0400 Diastolic blood pressure 80 mm[Hg] Dr. Michael Snowden Work Phone: 2(508)854-161318 [place] [address] 01-06-2023 14:34-0400 Heart rate 54 /min Dr. Michael Snowden Work Phone: 1(058)460-976645 [place] [address] 01-06-2023 14:34-0400 Respiratory rate 18 /min Dr. Michael Snowden Work Phone: 3(468)232-027245 [place] [address] 01-06-2023 14:34-0400 SaO2% (BldA) [Mass fraction] 95 % Dr. Michael Snowden Work Phone: 3(624)131-385145 [place] [address] 01-06-2023 14:34-0400 Systolic blood pressure 171 mm[Hg] Dr. Michael Snowden Work Phone: 9(567)818-048466 [address] 01-04-2022 08:47-0400 Body height 149.[address] Michael Snowden Work Phone: [facility] Work Phone: 01-04-2022 08:47-0400 Body mass index (BMI) [Ratio] 31.3 kg/m2 Dr. Michael Snowden Work Phone: [facility] Work Phone: 01-04-2022 08:47-0400 Body weight 70.[address] Michael Snowden Work Phone: [facility] Work Phone: 01-04-2022 08:47-0400 Heart rate 52 /min Dr. Michael Snowden Work Phone: [facility] Work Phone: 01-04-2022 08:47-0400 Respiratory rate 16 /min Dr. Michael Snowden Work Phone: [facility] Work Phone: 01-04-2022 08:47-0400 SaO2% (BldA) [Mass fraction] 98 % Dr. Michael Snowden Work Phone: [facility] Work Phone: 12-17-2016 13:13-0400 BMI (Body Mass [...] Date Encounter Type Care Provider Facility Start: 01-04-2025 ambulatory Nikia Henderson OLS Fa cility:[facility] Start: 12-21-2024 Non-patient / Non-visit Mari willis NP-C -[facility] Work Phone: Start: 12-21-2024 Mari Medina KILN TESTER-C -[facility] Work Phone: Start: 12-21-2024 ambulatory Michael Chi Sp Facility:[facility] Start: 12-20-2024 Non-patient / Non-visit Mari willis KILN TESTER-C -[facility] Work Phone: Start: 12-20-2024 Mari Medina KILN TESTER-C -[facility] Work Phone: Start: 12-20-2024 ambulatory Mari Medina NP Facili ty:[facility] Start: 12-20-2024 ambulatory Michael Chi Sp Facility:[facility] Start: 12-20-2024 Non-patient / Non-visit Dr. Carline OROZCO [facility] Start: 12-20-2024 Dr. Bret Daniels MD [facility] Start: 12-20-2024 End: 12-20-[address] Michael Snowden MD Work Phone: -[facility] Services Start: 12-20-2024 End: 12-20-2024 Patient encounter procedure Mari Medina KILN TESTER-C -[facility] Work Phone: Start: 12-20-2024 End: 12-20-2024 Mari Medina NP-C -[facility] Work Phone: Start: 12-20-2024 End: 12-20-2024 ambulatory Mari Medina NP Facility:[facility] Start: 11-30-2024 ambulatory Nikia JAVIER Fa cility:[facility] Start: 11-30-2024 Registered Referred Nikia Cabezas Start: 11-30-2024 Nikia Cabezas Start: 11-23-2024 End: 11-23-2024 Telephone encounter Elzbieta Hernandez MD Work Phone: Endocrinology Comment on above: Appointment Start: 11-22-2024 ambulatory Nikia JAVIER Fa cility:[facility] Start: 11-22-2024 Registered Referred Nikia Cabezas Start: 11-22-2024 Nikia Cabezas Start: 11-19-2024 End: 11-19-2024 Telephone encounter Elzbieta Hernandez MD Work Phone: Endocrinology Comment on above: Prior Authorization ([employer]) Start: 11-18-2024 End: 11-18-2024 ambulatory ELZBIETA HERNANDEZ Facility:[facility] Start: 11-18-2024 End: 11-18-2024 Patient encounter procedure Elzbieta Hernandez MD Work Phone: Endocrinology Comment on above: History of vertebral compression fracture (Primary Dx); Age-related osteoporosis with current pathological fracture, initial encounter Start: 11-02-2024 End: 11-02-2024 Patient encounter procedure Mari Medina NP-C -[facility] Work Phone: Start: 11-02-2024 End: 11-02-[address] Michael Snowden MD Work Phone: -[facility] Start: 11-02-2024 Registered Referred Audra Cabezas Start: 11-02-2024 End: 11-02-2024 Mari MANUEL -[facility] Work Phone: Start: 10-14-2024 ambulatory Nikia JAVIER Fa cility:[facility] Start: 10-14-2024 Registered Referred Nikia Cabezas Start: 10-14-2024 Nikia Cabezas Start: 10-13-2024 End: 10-13-[address] Michael Snowden MD Work Phone: [facility] Start: 10-13-2024 End: 10-13-2024 Patient encounter procedure Audra BRO -[facility] Work Phone: Start: 10-13-2024 End: 10-13-[address] [facility] Work [facility] Start: 09-28-2024 End: 09-28-[address] Nikia Henderson MD -[facility] Work Phone: Start: 09-28-2024 End: 09-28-[address] Michael Snowden MD Work Phone: [facility] Start: 09-28-2024 Registered Referred Audra Cabezas Start: 09-28-2024 End: 09-28-2024 Audra Cabezas Start: 09-21-2024 End: 09-21-[address] Michael Snowden MD Work Phone: -[facility] Start: 09-21-2024 End: 09-21-2024 Departed Referred Nikia Cabezas Start: 09-21-2024 Nikia Cabezas Start: 09-21-2024 End: 09-21-2024 ambulatory Nikia JAVIER Facility:[facility] Start: 09-14-2024 ambulatory Michael Sonwden Facility:[facility] Start: 09-14-2024 Registered Referred Nikia Talaveranison Start: 09-14-2024 Nikia Cabezas Start: 09-07-2024 End: 09-07-2024 Telephone encounter Ajay Grant MD Work Phone: Endocrinology Start: 09-07-2024 ambulatory [facility] Facility:[facility] Start: 09-07-2024 Registered Referred Nikia Cabezas Start: 09-07-2024 Nikia Cabezas Start: 08-31-2024 ambulatory Audra Drake OLS Fac ility:[facility] Start: 08-31-2024 Audra Drake KILN TESTER-C -[facility] Start: 08-25-2024 End: 08-25-2024 ambulatory Ajay Grant MD Work Phone: Endocrinology Comment on above: Medication denial Start: 08-25-2024 End: 08-25-2024 E-mail encounter from caregiver Ajay Grant MD Work Phone: Endocrinology Start: 08-24-2024 ambulatory [facility] Facility:[facility] Start: 08-24-2024 Nikia Cabezas Start: 08-22-2024 End: 08-22-2024 Telephone encounter Ajya Grant MD Work Phone: Endocrinology & Metabolic [place] Comment on above: Medication Preauthor ization (Evenity 210mg- Denied) Start: 08-17-2024 End: 08-17-[address] Michael Snowden MD Work Phone: [facility] Work Phone: Start: 08-17-2024 End: 08-17-2024 Nikia Cabezas Start: 08-16-2024 End: 08-17-2024 ambulatory Ajay Grant MD Work Phone: Endocrinology Comment on above: Medication update Start: 08-16-2024 End: 08-16-2024 E-mail encounter from caregiver Ajay Grant MD Work Phone: Endocrinology Start: 08-13-2024 End: 08-13-2024 Patient encounter procedure Seth Chowdary MD Work Phone: Spine [place] Comment on above: Acquired spondylolis thesis (Primary Dx); Cervical spondylosis without myelopathy; Neural foraminal stenosis of lumbar spine; Closed compression fracture of body of L1 vertebra (HCC) Start: 08-13-2024 End: 08-13-2024 ambulatory SETH CHOWDARY Facility:[facility] Start: 08-10-2024 End: 08-10-[address] Michael Snowden MD Work Phone: [facility] Work Phone: Start: 08-10-2024 End: 08-10-2024 Nikia Cabezas Start: 08-10-2024 End: 08-10-2024 ambulatory Nikia JAVIER Facility:[facility] Start: 08-03-2024 End: 08-03-[address] Michael Snowden MD Work Phone: [facility] Work Phone: Start: 08-03-2024 End: 08-03-2024 Audra MANUEL -ANTHONY - Jocelynn Start: 08-03-2024 End: 08-03-2024 ambulatory Audra JAVIER Facility:[facility] Start: 07-27-2024 End: 07-27-2024 Audra WOLFL - Jocelynn Start: 07-27-2024 End: 07-27-2024 ambulatory Audra JAVIER Facility:[facility] Start: 07-21-2024 End: 07-21-2024 ambulatory MILLIE PETTY Facility:[facility] Start: 07-21-2024 End: 07-21-2024 ambulatory AJAY GRANT Facility:[facility] Start: 07-21-2024 End: 07-21-2024 Patient encounter procedure Jovanni Matthew MD Work Phone: Rehab Medicine Comment on above: Osteopenia, unspecif ied location (Primary Dx); History of vertebral compression fracture; Spondylolisthesis, grade 3 Start: 07-21-2024 End: 07-21-2024 ambulatory JOVANNI MATTHEW Facility:[facility] Start: 07-20-2024 End: 07-20-[address] Michael Snowden MD Work Phone: [facility] Work Phone: Start: 07-20-2024 End: 07-20-2024 Nikia Cabezas Start: 07-20-2024 End: 07-20-2024 ambulatory Eflaura JAVIER Facility:[facility] Start: 07-13-2024 End: 07-13-[address] Michael Snowden MD Work Phone: [facility] Work Phone: Start: 07-13-2024 End: 07-13-2024 Nikia Cabezas Start: 07-13-2024 End: 07-13-2024 ambulatory Nikia JAVIER Facility:[facility] Start: 07-06-2024 Registered Referred Nikia Cabezas Start: 07-06-2024 End: 07-06-2024 Nikia Cabezas Start: 07-06-2024 End: 07-06-2024 ambulatory Efewfedebe Roberte OLS Facility:[facility] Start: 06-29-2024 Registered Referred Audra MANUEL -REEL - [place]ocelynn Start: 06-29-2024 End: 06-29-2024 Audra Drake NP-Michael -REEL - [place] Start: 06-29-2024 End: 06-29-2024 ambulatory Audra JAVIER Facility:[facility] Start: 06-23-2024 End: 06-23-2024 ambulatory Audra Drake NP Facility:[facility] Start: 06-23-2024 End: 06-23-2024 Audra Drake KILN TESTER-C -[facility] Work Phone: Start: 06-22-2024 End: 06-22-[address] Michael Snowden MD Work Phone: [facility] Work Phone: Start: 06-22-2024 Registered Referred Audra Drake KILN TESTER-C -[facility] [place] Start: 06-22-2024 End: 06-22-2024 Audra Drake KILN TESTER-C -[facility] [place] Start: 06-22-2024 End: 06-22-2024 ambulatory Audra Drake OLS Facility:[facility] Start: 06-15-2024 End: 06-15-[address] Michael Snowden MD Work Phone: [facility] Work Phone: Start: 06-15-2024 End: 06-15-2024 Departed Referred Nikia Cabezas Start: 06-15-2024 Registered Referred Nikia Cabezas Start: 06-15-2024 End: 06-15-2024 Nikia Cabezas Start: 06-15-2024 End: 06-15-2024 ambulatory Nikia Henderson OLS Facility:[facility] Start: 06-08-2024 End: 06-08-2024 Departed Referred Nikia Cabezas Start: 06-08-2024 Registered Referred Nikia Cabezas Start: 06-08-2024 End: 06-08-2024 Nikia Cabezas Start: 06-08-2024 End: 06-08-2024 ambulatory Nikai Henderson OLS Facility:[facility] Start: 06-01-2024 End: 06-01-[address] Michael Snowden MD Work Phone: [facility] Work Phone: Start: 06-01-2024 End: 06-01-2024 Departed Referred Nikia Cabezas Start: 06-01-2024 End: 06-01-2024 Nikia Cabezas Start: 06-01-2024 End: 06-01-2024 ambulatory Nikia Henderson [facility] Facility:[facility] Start: 05-25-2024 End: 05-25-2024 [facility] Start: 05-25-2024 End: 05-25-[address] Nikia Henderosn MD -[facility] Work Phone: Start: 05-25-2024 End: 05-25-2024 Dr. Nikia Henderson MD -[facility] Work Phone: Start: 05-21-2024 End: 05-21-2024 ambulatory Audra Khourydiego KILN TESTER Facility:[facility] Start: 05-21-2024 End: 05-21-2024 Patient encounter procedure Audra Khourydiego KILN TESTER-C -[facility] Work Phone: Start: 05-21-2024 End: 05-21-2024 Audra Noelle KILN TESTER-C -[facility] Work Phone: Start: 04-16-2024 End: 05-21-2024 Dr. Michael Snowden MD -Transitional Care U nit Start: 04-16-2024 End: 05-21-2024 Evaluation and management of inpatient Dr. Michael Snowden MD -Transitional Care Unit Start: 04-16-2024 Non-patient / Non-visit Dr. Minerva Hernandez MD -[facility] Work Phone: Start: 04-16-2024 Dr. Gabo Hernandez MD -[facility] Work Phone: Start: 04-15-2024 Non-patient / Non-visit Dr. Minerva Hernandez MD -[facility] Work Phone: Start: 04-15-2024 Dr. Gabo Hernandez MD [facility] Work Phone: Start: 04-14-2024 ambulatory Gabo Hernandez [facility] ility:[facility] Start: 04-14-2024 End: 04-16-2024 Evaluation and management of inpatient Dr. Gabo Hernandez MD -[facility] 3 Work Phone: Start: 04-14-2024 End: 04-16-2024 Dr. Gabo Hernandez MD -[facility] 3 Work Phone: Start: 04-14-2024 Non-patient / Non-visit Dr. Minerva Hernandez MD [facility] Work Phone: Start: 04-14-2024 Dr. Gabo Hernandez MD [facility] Work Phone: Start: 04-14-2024 End: 04-14-2024 ambulatory Indu Pacheco Facility:[facility] Start: 04-14-2024 End: 04-14-2024 Non-patient / Non-visit Dr. Idnu Pacheco MD [facility] Work Phone: Start: 04-14-2024 End: 04-14-2024 Dr. Indu Pacheco MD [facility] Work Phone: Start: 04-13-2024 Non-patient / Non-visit Dr. Minerva Hernandez MD [facility] Work Phone: Start: 04-13-2024 Dr. Gabo Hernandez MD [facility] Work Phone: Start: 04-12-2024 Non-patient / Non-visit Dr. Lesli ramirez MD -[facility] Work Phone: Start: 04-12-2024 Dr. Lesli Watkins MD [facility] Work Phone: Start: 04-11-2024 ambulatory Aissatou Baldwin Facility[facility] Start: 04-11-2024 Non-patient / Non-visit Dr. Lesli ramirez MD -[facility] Work Phone: Start: 04-11-2024 Dr. Lesli Watkins MD -[facility] Work Phone: Start: 03-30-2024 End: 03-31-2024 Dr. Floridalma Bingham DO -Emergency Departme nt Work Phone: Start: 03-30-2024 End: 03-31-2024 Emergency department patient visit Dr. Floridalma Bingham DO -Emergency Department Work Phone: Start: 03-25-2024 End: 03-25-2024 ambulatory Michael Paulo Sp Facility:[facility] Start: 03-25-2024 End: 03-25-[address] Michael Snowden MD -Physical Therapy Work Phone: Start: 03-25-2024 End: 03-25-2024 Dr. Michael Snowden MD -Physical Therapy Work Phone: Start: 02-25-2024 End: 02-25-2024 Emergency department patient visit Michael Paulo Sp Facility:[facility] Start: 02-23-2024 End: 02-23-2024 ambulatory Michael Paulo Snowden Facility:[facility] Start: 06-20-[address] Michael guillen Work Phone: [facility]-Physical Therapy Work Phone: Start: 06-19-2023 Non-patient / Non-visit Dr. Augusto Snowden Work Phone: [facility] Start: 06-19-2023 End: 06-19-[address] Michael Snowden Work Phone: [facility] Work Phone: Start: 06-19-2023 End: 06-19-[address] Michael Snowden Work Phone: [facility]-Cardiovascular Services Work Phone: Start: 05-30-[address] Michael guillen Work Phone: [facility]-Physical Therapy Work Phone: Start: 05-28-2023 End: 05-28-[address] Michael Snowden Work Phone: [facility] Work Phone: Start: 05-28-2023 End: 05-28-[address] Michael Snowden Work Phone: [facility]-Laboratory, Phy Office 3rd Flr Start: 05-09-2023 End: 05-09-[address] Michael Snowden Work Phone: [facility] Work Phone: Start: 05-09-2023 End: 05-09-[address] Michael Snowden Work Phone: [facility] Work Phone: Start: 04-28-2023 End: 04-28-[address] Michael Snowden Work Phone: [facility] Work Phone: Start: 04-28-2023 End: 04-28-[address] Michael Snowden Work Phone: [facility]-Physical Therapy Work Phone: Start: 02-24-2023 End: 02-24-[address] Michael Snowden Work Phone: [facility] Gastroenter[facility] Work Phone: Start: 01-06-2023 End: 01-06-[address] Michael Snowden Work Phone: [facility] Work Phone: Start: 11-28-[address] Michael guillen Work Phone: [facility]-Physical Therapy Work Phone: Start: 11-27-2022 End: 11-27-[address] Michael Snowden Work Phone: [facility] Work Phone: Start: 11-27-2022 End: 11-27-[address] [facility] Start: 11-05-2022 End: 11-05-[address] Michael Snowden Work Phone: [facility] Work Phone: Start: 11-05-2022 End: 11-05-[address] [facility] Start: 09-25-2022 End: 09-25-[address] Michael Snowden Work Phone: [facility] Gastroenter[facility] Work Phone: Start: 08-08-[address] [facility] guillen [facility] Start: 08-05-2022 End: 08-05-[address] Michael Snowden Work Phone: [facility] Work Phone: Start: 08-05-2022 End: 08-05-[address] [facility] Start: 07-16-[address] [facility]ill[facility] Start: 07-16-2022 End: 07-16-[address] Michael Snowden Work Phone: [facility] Work Phone: Start: 07-16-2022 End: 07-16-[address] Michael Snowden Work Phone: [facility] Start: 06-10-[address] [facility] guillen [facility] Start: 06-07-2022 End: 06-07-[address] Michael Snowden Work Phone: [facility] Work Phone: Start: 06-07-2022 End: 06-07-[address] Michael Snowden Work Phone: [facility] Gastroenterology Start: 03-26-2022 End: 03-26-[address] Michael Snowden Work Phone: [facility] Work Phone: Start: 03-26-2022 End: 03-26-[address] [facility] Snowden [facility] Start: 02-15-[address] Michael guillen Work Phone: [facility]-Physical Therapy Start: 01-07-[address] [facility] guillen [facility] Start: 01-04-2022 End: 01-04-[address] Michael Snowden Work Phone: [facility] Start: 12-24-2021 End: 12-24-[address] Michael Snowden Work Phone: [facility] Work Phone: Start: 12-24-2021 End: 12-24-[address] [facility] Start: 09-25-2021 End: 09-25-2021 [facility] Start: 09-24-2021 [facility] Start: 03-19-2006 End: 03-19-2006 Patient encounter procedure Noreen Fast DO Work Phone: [facility] Start: 02-26-2006 End: 02-27-2006 Patient encounter procedure Noreen Fast DO Work Phone: [facility] Start: 02-26-2006 End: 02-26-2006 Historical Summary Noreen Fast DO Work Phone: [facility] Procedures Date Procedure Procedure Detail Performing Clinician Start: 12-20-2024 Cardiovascular stres s test using pharmacologic stress agent Dr. Michael Snowden MD Work Phone: Start: 11-30-2024 Blood count smear mc rscp w/mnl difrntl wbc count Dr. Michael Snowden MD Work Phone: Start: 11-30-2024 Mean corpuscular hem oglobin concentration determination Dr. Michael Snowden MD Work Phone: Start: 11-30-2024 Nucleated red blood cell count procedure Dr. Michael Snowden MD Work Phone: Start: 11-30-2024 Platelet mean volume determination Dr. Michael Snowden MD Work Phone: Start: 11-22-[address] Michael salazar MD Work Phone: Comment on above: Test Ordered: [id number] C-Telopeptide, SerumC-Telopeptide, Serum 567 pg/mL ES Reference Range: .Reference Range:Premenopausal Women: 34 - 635Postmenopausal Women: 34 - 1037Performed at: ES - [facility] [address] [id number] Director: Ninoska Acuña MD, Phone: [phone] at: CB - [facility] [address] [id number] Director: Olivier Jenkins PhD, Phone: [phone] Start: 11-02-2024 Blood count smear mc rscp [...] measurement Dr. Michael Snowden MD Work Phone: Comment on above: Vitamin D StatusDefi ciency: <20 ng/mL (50nmol/L)Insufficiency: 20-30 ng/mL (50-75 nmol/L)Sufficiency: 30-100 ng/mL (75-250 nmol/L)Toxicity: >100 ng/mL (>250 nmol/L) Start: 10-14-2024 Blood count smear mc rscp [...] spin e, two or three views Dr. Micahel Snowden MD Work Phone: Start: 05-12-2024 Viral [...] guillen Work Phone: Start: 12-17-2016 End: 12-17-2016 *DEYVI Daniels MD Start: 12-17-2016 End: 12-17-2016 Follow Up Appt 6 months Cole Salazar Start: 12-17-2016 End: 12-17-2016 VIPUL Daniels MD Start: 06-11-2016 End: 06-11-2016 SENIOR MECHANICAL DESIGN ENGINEER Ashley Ernst PA-C Work Phone: Start: 06-11-2016 End: 06-11-2016 Follow Up Appt 6 months Ashley waterman PA-C Work Phone: Start: 06-11-2016 End: 06-11-2016 Follow Up BP Check Ashley Ernst PA-C Work Phone: Start: 06-13-2015 End: 06-06-2016 Follow Up Appt 1 year Bret Daniels MD Start: 06-13-2015 End: 06-06-2016 KDOAK Daniels MD Start: 03-08-2015 End: 03-08-2015 SENIOR MECHANICAL DESIGN ENGINEER Ashley Ernst PA-C Work Phone: Start: 03-08-2015 [...] months Cole Salazar Start: 08-13-2012 End: 02-01-2013 MMM Bret Daniels MD Start: 02-04-2012 End: 02-04-2012 Follow Up Appt 6 months Cole Salazar Start: 03-31-1950 H/O: surgery Tonsillectomy Noreen Fas t DO Work Phone: H/O: surgery Tonsillectomy Noreen A Fast D O Work Phone: Plan of Treatment Date Care Activity Detail Author Start: 02-24-2034 Urine microalbumin profile DTaP,Tdap,Td Vaccine (3 - Td or Tdap) [facility] Start: 07-22-2027 Diabetes Screening Diabetes Screenin g [facility] Start: 07-21-2025 BP Controlled (<130/80) BP Con trolled (<130/80) [facility] Start: 02-21-2025 End: 02-21-2025 Patient encounter procedure 02/21/2025 1:40 PM EST Office Visit Endocrinology [address] [place] [address] Elzbieta Hernandez MD [address] [place] [address] 3 mth follow up Endocrinology Comment on above: 3 mth follow up Start: 11-29-2024 Influenza vaccination [facility] Start: 11-18-2024 End: 02-17-2025 ALK PHOS BONE SPEC ALK PHOS BONE SPEC Lab Routine History of vertebral compression fracture Age-related osteoporosis with current pathological fracture, initial encounter Expected: 11/18/2024, Expires: 02/17/2025 [facility] Comment on above: Expected: 11/18/2024 , Expires: 02/17/2025 Start: 11-18-2024 End: 11-20-2025 Collagen crosslinked C-telopeptide [Mass/volume] in Serum or Plasma C TELOPEPTIDE, BETA Lab Routine History of vertebral compression fracture Age-related osteoporosis with current pathological fracture, initial encounter Expected: 11/18/2024, Expires: 02/17/2025 [facility] Work Phone: Comment on above: Expected: 11/18/2024 , Expires: 02/17/2025 Start: 11-02-2024 End: 11-02-2024 Evaluation of diagnostic study results [facility] Start: 11-02-2024 Hepatic function panel [facility] Start: 11-02-2024 Vitamin B12 measurement [facility] Start: 11-02-2024 Vitamin D, 25-hydrox y measurement [facility] Start: 10-20-2024 End: 10-20-2024 Patient encounter procedure 10/20/2024 12:40 PM EDT Office Visit Endocrinology [address] [id number] Kimmie Lindsey MD [address] [place], [place] [id number] 3 month follow up Endocrinology Comment on above: 3 month follow up Start: 05-21-2024 Patient discharge [facility] Start: 05-20-2024 Development of care plan [facility] Start: 05-17-2024 Consultation for pain [facility] Start: 05-13-2024 Developing a treatme nt plan [facility] Start: 05-13-2024 Development of care plan [facility] Start: 05-07-2024 [facility] Start: 04-17-2024 Developing a treatme nt plan [facility] Start: 04-17-2024 Development of care plan [facility] Start: 04-16-2024 Admission procedure [facility] Start: 04-16-2024 Introduction of urin mee catheter [facility] Start: 04-16-2024 Measuring intake and output [facility] Start: 04-16-2024 Patient referral to dietitian [facility] Start: 04-16-2024 Referral to occupati onal therapist [facility] Start: 04-16-2024 Referral to service [facility] Start: 04-16-2024 Vital signs measurements [facility] Start: 04-16-2024 [facility] Start: 04-16-2024 Following clinical pathway protocol [facility] Start: 04-16-2024 Patient discharge [facility] Start: 04-16-2024 [facility] Start: 04-14-2024 Admission procedure [facility] Start: 04-11-2024 Application of intermittent pneumatic compression device [facility] Start: 04-11-2024 Following clinical pathway protocol [facility] Start: 04-11-2024 Assessment of risk o f venous thromboembolism [facility] Start: 04-11-2024 Consultation for pain [facility] Start: 04-11-2024 Inhalation therapy procedure [facility] Start: 04-11-2024 Insertion of cathete r into peripheral vein [facility] Start: 04-11-2024 Providing care accor ding to standard [facility] Start: 04-11-2024 Provision of activit y privileges [facility] Start: 04-11-2024 Referral to occupati onal therapist [facility] Start: 04-11-2024 Referral to service [facility] Start: 04-11-2024 [facility] Start: 04-11-2024 Admission procedure [facility] Start: 03-31-2024 Advance Directive Discussion Advance Directive Discussion [facility] Start: 03-31-2024 Medicare Advantage Annual Wellness Visit Medicare Advantage Annual Wellness Visit [facility] Start: 03-31-2024 [facility] Start: 11-30-2023 Covid-19 Vaccine ( season) Covid-19 Vaccine ( season) [facility] Start: 11-30-2023 Influenza vaccination Influenza Vacc ine (#1) [facility] Start: 08-05-2022 Protein measurement [facility] Start: 2020 RSV Vaccine (1 - 1-d ose 75+ series) RSV Vaccine (1 - 1-dose 75+ series) [facility] Start: 06-16-2017 End: 06-16-2017 Appointment Appointment [facility] Work Phone: Start: 12-17-2016 End: 12-17-2016 *BMP *BMP [facility] Work Phone: Start: 12-17-2016 End: 12-17-2016 Follow Up Appt 6 months Follow Up Appt 6 months [facility] Work Phone: Start: 12-17-2016 End: 12-17-2016 JHR JHR [facility] Work Phone: Start: 12-17-2016 End: 12-17-2016 Remote 30 day ecg rev/report 30 Day Holter Monitor [facility] Work Phone: Start: 06-11-2016 End: 06-11-2016 SENIOR MECHANICAL DESIGN ENGINEER SENIOR MECHANICAL DESIGN ENGINEER [facility] Work Phone: Start: 06-11-2016 End: 06-11-2016 Follow Up Appt 6 months Follow Up Appt 6 months [facility] Work Phone: Start: 06-11-2016 End: 06-11-2016 Follow Up BP Check Follow Up BP Check [facility] Work Phone: Start: 04-04-2016 Screening for osteoporosis Bone Density Screening [facility] Start: 06-13-2015 End: 06-06-2016 Follow Up Appt 1 year Follow Up Appt 1 year [facility] oup Work Phone: Start: 06-13-2015 End: 06-06-2016 MMM MMM [facility] Work Phone: Start: 03-08-2015 End: 03-08-2015 SENIOR MECHANICAL DESIGN ENGINEER SENIOR MECHANICAL DESIGN ENGINEER [facility] Work Phone: Start: 03-08-2015 End: 03-08-2015 Follow Up Appt 3 months Follow Up Appt 3 months [facility] Work Phone: Start: 08-05-2014 End: 08-05-2014 Follow Up Appt 6 months Follow Up Appt 6 months [facility] Work Phone: Start: 08-05-2014 End: 08-05-2014 MMM MMM [facility] Work Phone: Start: 02-10-2014 End: 02-10-2014 SENIOR MECHANICAL DESIGN ENGINEER SENIOR MECHANICAL DESIGN ENGINEER [facility] Work Phone: Start: 02-10-2014 End: 02-10-2014 Follow Up Appt 6 months Follow Up Appt 6 months [facility] Work Phone: Start: 08-13-2013 End: 08-13-2013 Follow Up Appt 6 months Follow Up Appt 6 months [facility] Work Phone: Start: 08-13-2013 End: 08-13-2013 MMM MMM [facility] Work Phone: Start: 02-08-2013 End: 02-08-2013 SENIOR MECHANICAL DESIGN ENGINEER SENIOR MECHANICAL DESIGN ENGINEER [facility] Work Phone: Start: 02-08-2013 End: 02-08-2013 Follow Up Appt 6 months Follow Up Appt 6 months [facility] Work Phone: Start: 08-13-2012 End: 02-01-2013 Follow Up Appt 6 months Follow Up Appt 6 months [facility] Work Phone: Start: 08-13-2012 End: 02-01-2013 MMM MMM [facility] Work Phone: Start: 02-04-2012 End: 02-04-2012 Follow Up Appt 6 months Follow Up Appt 6 months [facility] Work Phone: Start: 04-25-2011 Shingrix Vaccine (2 of 3) Shingrix Vaccine (2 of 3) [facility] Start: 03-19-2006 Provider Instruction s for Treatment FOLLOW UP IN 4 MONTHS [facility] Work Phone: Start: 10-27-1963 Annual PCP Team Building Code Administrator apurva Disease Visit Annual PCP Team Chronic Disease Visit [facility] Start: 10-27-1963 Anxiety Screening Anxiety Screening [facility] Start: 10-27-1963 BP Controlled (<130/80) BP Con trolled (<130/80) [facility] Start: 10-27-1963 Depression Screening Depression Scre ening [facility] Start: 10-27-1963 zzBP Controlled (<130/80) (Retired) zzBP Controlled (<130/80) (Retired) [facility] Cholesterol [Mass/volume] in Serum or Plasma [facility] Cholesterol in HDL [Mass/volume] in Serum or Plasma [facility] CT Abdomen and Pelvi s W contrast IV [facility] Lactoferrin [Presenc e] in Stool by Immunoassay [facility] Low density lipoprot ein cholesterol measurement [facility] NM Heart Views W str ess and W radionuclide IV [facility] Patient Education [facility] Work Phone: Patient referral [facility] Work Phone: Protein measurement [facility] Total cholesterol:HD L ratio measurement [facility] Triglycerides measurement [facility] VLDL cholesterol measurement [facility] Immunizations Immunization Date Immunization Notes Care Provider Fa [facility] 02-25-2024 tetanus toxoid, redu lalo diphtheria toxoid, and acellular pertussis vaccine, adsorbed Dr. Michael Snowden MD Work Phone: [facility] 05-13-2017 influenza virus vacc ine, unspecified formulation Jovanni Matthew MD Work Phone: [facility] 03-17-2015 pneumococcal conjuga te [facility], [facility] 12-24-2014 influenza, high dose seasonal, preservative-free Jovanni Matthew MD Work Phone: [facility] 01-11-2013 influenza virus vacc ine, unspecified formulation Jovanni Matthew MD Work Phone: [facility] 02-28-2011 zoster vaccine, live Jovanni crump MD Work Phone: [facility] Work Phone: 02-19-2011 influenza virus vacc ine, unspecified formulation Jovanni Matthew MD Work Phone: [facility] 02-19-2011 pneumococcal polysaccharide vaccine, 23 valent [facility] 09-21-2007 tetanus toxoid, redu lalo diphtheria toxoid, and acellular pertussis vaccine, adsorbed Jovanni Matthew MD Work Phone: [facility] Payers Date Payer Category Payer Self-pay [id number] 2018 Medicare (Managed Care) [place] PA[place] [id number] 2013 Medicare [id number] Unknown Medical [place] Unknown [id number] 2.16840.1.844767.3.579. 2.462 Unknown [id number] 2.16840.1.535223.3.579. 2.462 Unknown [id number] 2.16840.1.828927.3.579. 2.462 Unknown [id number] 2.16840.1.632228.3.579. 2.462 Unknown [id number] 2.16840.1.324805.3.579. 2.462 Unknown [id number] 2.16840.1.988160.3.579. 2.462 Unknown [id number] 2.16.840.1.686368.3.579. 2.462 Unknown [id number] 2.16.840.1.071455.3.579. 2.462 Unknown [id number] 2.16.840.1.558365.3.579. 2.462 Unknown [id number] 2.16.840.1.338134.3.579. 2.462 Unknown [id number] 2.16.840.1.811101.3.579. 2.462 Unknown [id number] 2.16840.1.945318.3.579. 2.462 Unknown [id number] 2.16.840.1.481265.3.579. 2.462 Unknown [id number] 2.16840.1.281579.3.579. 2.462 Unknown [id number] 2.16.840.1.817451.3.579. 2.462 Unknown [id number] 2.840.1.860168.3.579. 2.462 Unknown [id number] 2.840.1.335160.3.579. 2.462 Unknown [id number] 2.840.1.232493.3.579. 2.462 Unknown [id number] 2.840.1.536660.3.579. 2.462 Unknown [id number] 2.840.1.722647.3.579. 2.462 Unknown [id number] 2.840.1.498559.3.579. 2.462 Unknown [id number] 2.840.1.166738.3.579. 2.462 Unknown [id number] 2.840.1.778866.3.579. 2.462 Unknown [id number] 2.840.1.209378.3.579. 2.462 Unknown [id number] 2.840.1.478739.3.579. 2.462 Unknown [id number] 2.840.1.342508.3.579. 2.462 Unknown [id number] 2.840.1.196650.3.579. 2.462 Unknown [id number] 2.16840.1.167488.3.579. 2.462 Unknown [id number] 2.840.1.372565.3.579. 2.462 Unknown [id number] 2.16.840.1.954980.3.579. 2.462 Unknown [id number] 2.16.840.1.084646.3.579. 2.462 Unknown [id number] 2.16.840.1.108260.3.579. 2.462 Unknown [id number] 2.16.840.1.003499.3.579. 2.462 Unknown [id number] 2.16.840.1.335951.3.579. 2.462 Unknown [id number] 2.16.840.1.333261.3.579. 2.462 Unknown [id number] 2.16.840.1.509531.3.579. 2.462 Unknown [id number] 2.16840.1.956723.3.579. 2.462 Unknown [id number] 2.16840.1.659043.3.579. 2.462 Unknown [id number] 2.16840.1.487718.3.579. 2.462 Unknown [id number] 2.16.840.1.778771.3.579. 2.462 Unknown [id number] 2.16.840.1.838181.3.579. 2.462 Unknown [id number] 2.16840.1.487446.3.579. 2.462 Unknown [id number] 2.16.840.1.868918.3.579. 2.462 Unknown [id number] 2.16840.1.626424.3.579. 2.462 Unknown [id number] 2.16840.1.680843.3.579. 2.462 Unknown [id number] 2.16840.1.642409.3.579. 2.462 Unknown [id number] 2.16840.1.242536.3.579. 2.462 Social History Date Type Detail Facility Start: 04-10-2021 End: 05-09-2023 Tobacco smoking status NHIS Unknown if ever smoked [facility] Start: 09-21-2020 None [facility] Start: 09-21-2020 Homeless [facility] Start: 09-21-2020 Non-smoker [facility] Start: 1945 Sex Assigned At Female [facility] Start: 07-21-2024 End: 11-18-2024 Alcohol Use Alcohol Use [facility] Work Phone: Comment on above: Occasional alcohol u se tea once iin awhile Start: 04-16-2024 End: 07-21-2024 Tobacco smoking status NHIS Never smoked tobacco (finding) [facility] Start: 07-01-2024 End: 07-15-2024 Sex Female (finding) [facility] Start: 07-21-2024 Tobacco use and exposure Smokeless tobacco non-user [facility] Start: 07-21-2024 End: 11-18-2024 Alcoholic beverage intake Current drinker of alcohol (finding) [facility] Start: 07-21-2024 End: 11-18-2024 Tobacco use panel [facility] Start: 03-01-2012 National Score (1-100), lower number is lower risk 75 [facility] Start: 07-21-2024 Tobacco Comment Mother smoked in childhood home. ETS exposure in a restaurant. [facility] Start: 02-19-2012 [facility] Start: 1945 Sex assigned at Not [facility] file [facility] NEGATED: Highlighted row Not [facility] Goals Date Patient Goal Desired Activity /State Functional Status Date Assessment Result Facility 05-21-2024 Functional status Ambulates [facility] Work Phone: 04-16-2024 Functional status Ambulates [facility] Work Phone: 11-03-2014 Are you deaf, or do you have serious difficulty hearing No 11/03/2014 11:42 AM Dalila Nielsen RN No [facility] 11-03-2014 Are you blind, or do you have serious difficulty seeing, even when wearing glasses No 11/03/2014 11:42 AM Dalila Nielsen RN No [facility] 11-03-2014 Do you have serious difficulty walking or climbing stairs Yes 11/03/2014 11:42 AM Dalila Nielsen RN Yes [facility] 11-03-2014 Do you have difficul ty dressing or bathing No 11/03/2014 11:42 AM Dalila Nielsen RN No [facility] 11-03-2014 Because of a physica l, mental, or emotional condition, do you have difficulty doing errands alone such as visiting a physician's office or shopping Yes 11/03/2014 11:42 AM Dalila Nielsen RN Yes [facility] Mental Status Date Assessment Result Facility 05-21-2024 Cognitive function Voice/Name [facility] Work Phone: 05-17-2024 Cognitive function Appropriate;C ooperativ e [facility] Work Phone: 04-16-2024 Cognitive function Voice/Name [facility] Work Phone: 11-03-2014 Because of a physica l, mental, or emotional condition, do you have serious difficulty concentrating, remembering, or making decisions Yes 11/03/2014 11:42 AM Dalila Nielsen RN Yes [facility] Clinical Notes 06-14-2022 to 11-23-2024 Telephone [...] brought to the appt by Anny from [facility]; therefore, Anny wants to call back once she touches base with Pt to determine best date/time for Pt to come in for the injection. Dr. Hernandez already placed CAM order in Pt's chart. Karla Pineda RN November 23, 2024 2:46 PM [facility] 11-23-2024 Miscellaneous Notes Call placed to Pt's sister, Anny Espinosa. Notified her that the prior authorization for Prolia was approved by Pt's insurance, and she can schedule the nurse visit with Trinidad valenzuela RN at their convenience. Pt will be brought to the appt by Anny from [facility]; therefore, Anny wants to call back once she touches base with Pt to determine best date/time for Pt to come in for the injection. Dr. Hernandez already placed CAM order in Pt's chart. Karla Pineda RN November 23, 2024 2:46 PM documented in this encounter [facility] 11-19-2024 Telephone encounter Note Fax received Prolia approved pa# [id number] from 11/19/24-03/30/25. Placed in scanned docs. .me [facility] 11-19-2024 Miscellaneous Notes Fax received Prolia approved pa# [phone] from 11/19/24-03/30/25. Placed in scanned docs. .me Prior authorization for Prolia submitted to Cover[employer]eds. Cruz: [id number] Karla Pineda RN November 19, 2024 10:25 AM documented in this encounter [facility] 11-19-2024 Telephone encounter Note Prior authorization for Melva submitted to [facility]. Cruz: [id number] Karla Pineda RN November 19, 2024 10:25 AM [facility] 11-18-2024 Instructions Elzbieta Hernandez MD - 11/18/2024 [...] 300 Yogurt (6 oz [168 g]) 250 Natrona juice (with calcium, 8 oz [240 mL]) [...] 50 to 135 Almonds (24 whole) 70 Natrona (1 medium) 60 If you think you [...] the medications reviewed documented in this encounter [facility] 11-18-2024 Note HNO ID: [id number] Author: ELZBIETA HERNANDEZ MD Service: ? Author Type: Physician Type: Progress Notes Filed: 11/18/2024 18:10 Note Text: Endocrinology and Metabolism [place] Follow up note NAME: Lizette Davies is [...] (degenerative disc disease), cervical MRI scanned into [facility] January 11, 2014 ([facility]) DDD (degenerative disc disease), lumbosacral Essential [...] 12/31/13 EGD ESOPHAGOGASTRODUODENOSCOPY TRANSORAL DIAGNOSTIC 02/16/15 EGD [facility] inpt ESOPHAGOGASTRODUODENOSCOPY TRANSORAL DIAGNOSTIC 05/11/15 EGD EXTRACTION, ERUPTED TOOTH OR EXPOSED ROOT (ELEVATION AND/OR FORCEPS REMOVAL) 1969's [place] teeth FOOT RIGHT OP SURGERY 01/2009 PAST [...] needed for nausea/ (more content not included)... [facility] 11-18-2024 History of Presen t illness Narrative Images from the original note were not included. Endocrinology and Metabolism [place] Follow up note NAME: Lizette Davies is [...] (degenerative disc disease), cervical MRI scanned into [facility] January 11, 2014 ([facility]) DDD (degenerative disc disease), lumbosacral Essential [...] 12/31/13 EGD ESOPHAGOGASTRODUODENOSCOPY TRANSORAL DIAGNOSTIC 02/16/15 EGD [facility] inpt ESOPHAGOGASTRODUODENOSCOPY TRANSORAL DIAGNOSTIC 05/11/15 EGD EXTRACTION, ERUPTED TOOTH OR EXPOSED ROOT (ELEVATION AND/OR FORCEPS REMOVAL) [place] teeth FOOT RIGHT OP SURGERY 01/2009 PAST [...] by mouth twice daily. (prescribed by Dr. 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 Dx: Bilat sprained ankles, gait [...] I discussed Reclast, Prolia, as well as forteo Tymlos today. Side effects, duration of therapy, [...] which included preparing to see the patient, [id number] patient care, completing clinical documentation, obtaining and/or reviewing separately obtained history, performing a medically appropriate examination, counseling and educating the patient/family/caregiver, ordering medications, tests, or procedures, independently interpreting results (not separately reported), and communicating results to the patient/family/caregiver. Elzbieta Hernandez MD Endocrinology Associate Staff [facility] Specialty & Surgery [facility] Endocrinology and Metabolism [place] [phone] Medical Decision Making: Medical Decision Making Level: 1 - N/A documented in this encounter [facility] 11-02-2024 Evaluation note Diagnosis Onset Date Resolution Abnormal electrocardiogram acute November 02, 2024 10:03am Essential (primary) hypertension chronic November 02, 2024 10:03am Nonrheumatic aortic (valve) stenosis chronic November 02 10:03am Supraventricular tachycardia chronic November 02, 2024 10:03am [facility] Work Phone: 1(706) 783-322205-25-2025 Telephone encounter Note* Telephone Encounter - Mary [...] your request via staff message to the [employer]ais [employer] ([id number]). You can find templates listed below to support your appeal in [employer] ([employer] drop down, select patient care, select send letter). If it is an urgent request, you can email the PA Prior auth Team at . Please make sure the documents beloware completed in order to process your request. If the appeal is denied, do you want to schedule a peer to peer Yes/No. We will schedule peer to peer automatically if yes. Thank You, Jorje Prior Auth Appeals Team Jorje PA Appeal letter Endo PA Letter of Medical Necessity Jorje GRIFFIN [facility] Mary Prior Mobile Game Engineer III Endocrinology & Metabolism [place] Letter scanned into chart [facility]05-25-2025 Miscellaneous Notes* Telephone Encounter - Mary Borden [...] your request via staff message to the [employer] ([phone]). You can find templates listed below to support your appeal in [facility] ([employer] drop down, select patient care, select send letter). If it is an urgent request, you can email the PA Prior auth Team at [employer] . Please make sure the documents beloware completed in order to process your request. If the appeal is denied, do you want to schedule a peer to peer Yes/No. We will schedule peer to peer automatically if yes. Thank You, [facility] Prior Auth Appeals Team Endo PA Appeal letter Endo PA Letter of Medical Necessity Endo PA Clindoc Mary Prior Mobile Game Engineer III Endocrinology & Metabolism [place] Letter scanned into chart documented in [facility] NoteHNO ID: [id number] Author: SETH CHOWDARY MD Service: ? Author Type: Physician Type: Progress Notes Filed: 08/13/2024 08:45 Note Text: SPINE SURGERY OUTPATIENT CONSULT This is an in-person visit. SERVICE DATE: 08/13/2024 PCP: Michael Snowden MD REFERRING PROVIDER: Jovanni Matthew [address] [facility] [address] Lizette Davies is a 78 year old [...] walked recently and currently resides in a jail facility. She does not report bowel or [...] (degenerative disc disease), cervical MRI scanned into [facility] January 11, 2014 ([facility]) DDD (degenerative disc disease), lumbosacral Essential [...] 12/31/13 EGD ESOPHAGOGASTRODUODENOSCOPY TRANSORAL DIAGNOSTIC 02/16/15 EGD [facility] inpt ESOPHAGOGASTRODUODENOSCOPY TRANSORAL DIAGNOSTIC 05/11/15 EGD EXTRACTION, ERUPTED TOOTH OR EXPOSED ROOT (ELEVATION AND/OR FORCEPS REMOVAL) [place] teeth FOOT RIGHT OP SURGERY 01/2009 PAST SURGICAL HISTORY OF 1995 Bone fusion 1st MT and pin right foot PAST S (more content not included)...[facility]05-16-2025 History of Present illness Narrative* Seth Chowdary MD - 08/13/2024 7:55 AM EDT SPINE SURGERY OUTPATIENT CONSULT This is an in-person visit. SERVICE DATE: 08/13/2024 PCP: Michael Snowden MD REFERRING PROVIDER: Jovanni Matthew [address] [place] [facility] [address] Lizette Davies is a 78 year old [...] walked recently and currently resides in a jail facility. She does not report bowel or [...] (degenerative disc disease), cervical MRI scanned into [facility] January 11, 2014 ([facility]) DDD (degenerative disc disease), lumbosacral Essential [...] 12/31/13 EGD ESOPHAGOGASTRODUODENOSCOPY TRANSORAL DIAGNOSTIC 02/16/15 EGD [facility] inpt ESOPHAGOGASTRODUODENOSCOPY TRANSORAL DIAGNOSTIC 05/11/15 EGD EXTRACTION, ERUPTED TOOTH OR EXPOSED ROOT (ELEVATION AND/OR FORCEPS REMOVAL) 1969' [place] teeth FOOT RIGHT OP SURGERY 01/2009 PAST [...] needed for nausea/vomiting. 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 Dx: Bilat sprained ankles, gait [...] taking: Reported on 07/21/2024) COMPOUNDED PRESCRIPTION Viki Imagga 17 drops daily and working up to [...] TIME: 7:55 AM PAGER: documented in [facility]25 NoteHNO ID: [id number] Author: MILLIE PETTY MD Service: ? Author [...] Reported on 07/21/2024) COMPOUNDED PRESCRIPTION Home Health sock and stocking ironer, itzel, PT. Dx: Bilat sprained ankles, gait [...] Compression fracture of thoracic vertebra ([facility]) DDD (degenerative disc disease), cervical MRI scanned into [facility] January 11, 2014 ([facility]) DDD (degenerative disc disease), lumbosacral Essential [...] WHEN PFRMD 11/24/2000 Co (more content not included)...[facility]04-23-2025 Instructions* Patient Instructions* Jovanni Matthew MD - 07/21/2024 1:43 PM EDT Bring records including bone density testing to appointments with metabolic bone and spine surgeon Pain medication per pain management documented in this encounterA[facility]04-[facility]-2025 NoteHNO ID: [id number] Author: MILLY SINGH RN Service: ? Author [...] tests/records were reviewed: CD, reports [facility] History of Present illness Narrative* Milly [...] transitional care- ECF - PT stopped at [facility]. Can walk some with walker- about [...] (degenerative disc disease), cervical MRI scanned into [facility] January 11, 2014 ([facility]) DDD (degenerative disc disease), lumbosacral Essential [...] 12/31/13 EGD ESOPHAGOGASTRODUODENOSCOPY TRANSORAL DIAGNOSTIC 02/16/15 EGD [facility] inpt ESOPHAGOGASTRODUODENOSCOPY TRANSORAL DIAGNOSTIC 05/11/15 EGD EXTRACTION, ERUPTED TOOTH OR EXPOSED ROOT (ELEVATION AND/OR FORCEPS REMOVAL) 1969's [place] teeth FOOT RIGHT OP SURGERY 01/2009 PAST [...] by mouth once daily. COMPOUNDED PRESCRIPTION Viki [employer] 17 drops daily and working up to 60 drops daily (in divided doses). Serving size 30 drops. Mineral water and ethanol 20-24%) OTC NUTRITIONAL SUPPLEMENT zypan supplement COMPOUNDED PRESCRIPTION Home Health sock and stocking ironer, aide, PT. Dx: Bilat sprained ankles, gait [...] cervical and LS ddd, HTN, gastroparesis, h/o IN, h/o GIB, sarcoidosis, leg SCC, with h/o [...] which included preparing to see the patient, [id number] patient care, completing clinical documentation, obtaining and/or reviewing separately obtained history, performing a medically appropriate examination, counseling and educating the pat ient/family/caregiver, ordering medications, tests, or procedures, and communicating with other HCPs (not separately reported). documented in this encounterA[facility]04-23-2025 NoteHNO ID: [id number] Author: JOVANNI MATTHEW MD Service: ? Author [...] transitional care- ECF - PT stopped at [facility]. Can walk some with walker- about [...] (degenerative disc disease), cervical MRI scanned into [facility] January 11, 2014 ([facility]) DDD (degenerative disc disease), lumbosacral Essential [...] 12/31/13 EGD ESOPHAGOGASTRODUODENOSCOPY TRANSORAL DIAGNOSTIC 02/16/15 EGD [facility] inpt ESOPHAGOGASTRODUODENOSCOPY TRANSORAL DIAGNOSTIC 05/11/15 EGD EXTRACTION, ERUPTED TOOTH OR EXPOSED ROOT (ELEVATION AND/OR FORCEPS REMOVAL) [place] teeth FOOT RIGHT OP SURGERY 01/2009 PAST SURGICAL HISTORY OF 1996 Bone fusion 1st MT and pin right foot PAST SURGICAL HISTORY OF 01/2013 left carpal tunnel surgery PAST SURGICAL HISTORY OF right Lasik 2001 PAST SURGICAL HISTORY OF 09/13 Skin (more content not included)...[facility]02-19-2025 Note [facility]02-18-2025 [facility]01-17-2025 Evaluation note* Diagnosis Onset Date Resolution Status [...] back pain resolved April 16, 2024 3:42pm [facility] Work Phone: 1(321) 862-882601-17-2025 [facility]01-17-2025 [facility]01-15-2025 Evaluation note* Diagnosis Onset Date Resolution Status Admit Date Age-related osteoporosis wit h current pathol fracture of vertebra acute April 14 3:42pm Compression fracture of L1 vertebra acute April 14 3:42pm Radiculopathy of lumbar region acute April 14, 2024 3:42pm Unable to ambulate acute Yanir y 2024 3:42pm Chronic back pain chronic [...] back pain resolved April 16, 2024 3:42pm [facility] Work Phone: 1(416) 332-568201-15-2025 [facility]01-14-2025 [facility]02-02-2024 Discharge summary Author Geo Phillip [facility] May 02, 2023 3:54pm Note Date/Time May 02, 2023 3 :54pm [facility] Physical Therapy Health[address] [place] [address] / REHABILITATION SERVICES DISCHARGE SUMMARY MR#: [id number] Acct: [id number] Name: LIZETTE DAVIES Rep #: [id number] : 1945 77 From: Geo Phillip PT, ATC Referring DrTimur: [...] please feel free to call me at [phone]. Thank you for the referral of thispatient. Sincerely, Geo Phillip, PT, ATC Balance/Gait/Functional tests Balance/Special Test Scores Lower Extremity Functional Score: 19 Improvement % Improvement: 60 <Electronically signed by Geo Phillip PT, ATC> 05/02/23 1554 CC: Dr. Michael Snowden MD ~ [facility] Signed [facility] Work Phone: [phone] 157-624503-17-2023 Discharge summary Author Geo Phillip [facility] June 14, 2022 3:55pm Note Date/Time June 14, 2022 3:4 9pm [facility] Physical Therapy [facility] [address] [place] [address]. [address] [place] [address] / REHABILITATION SERVICES DISCHARGE SUMMARY MR#: [id number] Acct: [id number] Name: LIZETTE DAVIES Rep #: [id number] : 1945 76 From: Geo Phillip PT, [...] please feel free to call me at [phone]. Thank you for the referral of thispatient. Sincerely, Geo Phillip, PT, ATC Balance/Gait/Functional tests - Balance/Special Test Scores Lower Extremity Functional Score: 12 <Electronically signed by Geo Phillip PT, ATC> 06/14/22 1542 CC: Dr. Michael Snowden MD ~ [facility] Signed [facility] Work Phone: Evaluation noteNo assessment information available [facility] Work Phone: Evaluation note* Diagnosis Onset Date Resolution Status Essential (primary) hypertension chronic Nonrheumatic aortic (valve) stenosis chronic Supraventricular tachycardia [facility] Work Phone: Evaluation note* Diagnosis Onset Date Resolution Status Abdominal pain acute Diarrhea chronic [facility] Work Phone: Evaluation note* Diagnosis Onset Date Resolution Status Cellulitis acute Gastroparesis acute Diarrhea chronic [facility] Work Phone: Evaluation note* Diagnosis Onset Date Resolution Status Essential (primary) hypertension chronic Nonrheumatic aortic (valve) stenosis chronic Supraventricular tachycardia chronic Cellulitis acute Gastroparesis acute Diarrhea [facility] Work Phone: Evaluation note* Diagnosis Onset Date Resolution Status Cellulitis acute Gastroparesis acute Diarrhea chronic Essential (primary) hypertension chronic Nonrheumatic aortic (valve) stenosis chronic Supraventricular tachycardia [facility] Work Phone: Evaluation note* Diagnosis Osteopenia, unspecified location- Primary History of vertebral compression fracture Spondylolisthesis, grade 3 Acquired spondylolisthesis documented in this encounter [facility] note* Diagnosis Acquired spondylolisthesis- Primary Cervical spondylosis without myelopathy Neural foraminal stenosis of lumbar spine Spinal stenosis, lumbar region, without neurogenic claudication Closed compression fracture of body of L1 vertebra (HCC) documented in this encounter [facility] note* Diagnosis Age-related osteoporosis with current pathological fracture, initial encounter- Primary documented in this encounter [facility] note* Diagnosis Onset Date Resolution Status Admit Date Abnormal electrocardiogram acute November 02, 2024 10:03am Essential (primary) hypertension chr onic November 02, 2024 10:03am Nonrheumatic aortic (valve) stenosis chronic November 02, 2024 10:03am Supraventricular tachycardia chronic November 02, 2024 10:03am [facility] Work Phone: Evaluation note* Diagnosis History of vertebral compression fracture- Primary Age-related osteoporosis with current pathological fracture, initial encounter documented in this encounter [facility] for referral (narrative)No reason for referral [facility] Work Phone: Chief Complaint and Reason for [...] 3 M FU Pain in left knee [id number] Reason for Visit Cellulitis Gastroparesis Diarrhea Essential (primary) hypertension Nonrheumatic aortic (valve) stenosis Supraventricular tachycardia Chief Complaint BALANCE RX HERE 3 M FU Pain in left knee MURMUR, SVT [id number] Reason for Visit Essential (primary) hypertension Nonrheumatic aortic (valve) stenosis Supraventricular tachycardia Chief Complaint Admit Date LEG WEAKNESS/PAIN. RX HERE February 3:00pm BACK PAIN March 30, 2024 7:15pm LUMBAR COMPRESSION FRACTURE W/PAIN Mar 2024 1:26pm LUMBAR COMPRESSION FRACTURE W/PAIN 2024 4:22pm LUMBAR COMPRESSION FRACTURE W/PAIN 2024 10:49am PREOP April 14, 2024 4 :50am LUMBAR COMPRESSION FRACTURE W/PAIN Mar 2024 11:43am LUMBAR COMPRESSION FRACTURE W/PAIN Mar 2024 3:42pm LUMBAR COMPRESSION FRACTURE W/PAIN 2024 10:46am LUMBAR COMPRESSION FRACTURE W/PAIN 2024 9:51am LUMBAR COMPRESSION FRACTURE W PAIN Mar 2024 3:42pm ADMISSION EXAM May 21, 2024 10:56am ADMISSION EXAM May 25, 2024 1:55pm LONG TERM LAB WORK June 01, 2024 4: 00am LONG TERM LAB WORK June 08, 2024 4 :00am [...] 10:56am ADMISSION EXAM May 25, 2024 1:55pm LONG TERM LAB WORK June 01, 2024 4: 00am LONG TERM LAB WORK June 08, 2024 4 :00am LONG TERM LAB WORK June 15, 2024 5 :00am [...] 10:56am ADMISSION EXAM May 25, 2024 1:55pm LONG TERM LAB WORK June 01, 2024 4: 00am LONG TERM LAB WORK June 08, 2024 4 :00am LONG TERM LAB WORK June 15, 2024 5 :00am LONG TERM LAB WORK June 22, 2024 5 :00am [...] 10:56am ADMISSION EXAM May 25, 2024 1:55pm LONG TERM LAB WORK June 01, 2024 4: 00am LONG TERM LAB WORK June 08, 2024 4 :00am LONG TERM LAB WORK June 15, 2024 5 :00am LONG TERM LAB WORK June 22, 2024 5 :00am NEW CONCERN June 23, 2024 4:5 8pm LONG TERM LAB WORK June 29, 2024 5: 00am LONG TERM LAB WORK July 06, 2024 5: 00am LONG TERM LAB WORK July 13, 2024 5 :00am Chief Complaint Admit Date LUMBAR COMPRESSION FRACTURE W PAIN Yani ry 2024 3:42pm ADMISSION EXAM May 21, 2024 10:56am ADMISSION EXAM May 25, 2024 1:55pm LONG TERM LAB WORK June 01, 2024 4: 00am LONG TERM LAB WORK June 08, 2024 4 :00am LONG TERM LAB WORK June 15, 2024 5 :00am LONG TERM LAB WORK June 22, 2024 5 :00am NEW CONCERN June 23, 2024 4:5 8pm LONG TERM LAB WORK June 29, 2024 5: 00am LONG TERM LAB WORK July 06, 2024 5: 00am LONG TERM LAB WORK July 13, 2024 5 :00am LONG TERM LAB WORK July 20, 2024 4 :00am LONG TERM LAB WORK July 27, 2024 5 :00am [...] 10:56am ADMISSION EXAM May 25, 2024 1:55pm LONG TERM LAB WORK June 01, 2024 4: 00am LONG TERM LAB WORK June 08, 2024 4 :00am LONG TERM LAB WORK June 15, 2024 5 :00am LONG TERM LAB WORK June 22, 2024 5 :00am NEW CONCERN June 23, 2024 4:5 8pm LONG TERM LAB WORK June 29, 2024 5: 00am LONG TERM LAB WORK July 06, 2024 5: 00am LONG TERM LAB WORK July 13, 2024 5 :00am LONG TERM LAB WORK July 20, 2024 4 :00am LONG TERM LAB WORK July 27, 2024 5 :00am LABWORK August 10, 2024 5:00a m Chief Complaint Admit Date LUMBAR COMPRESSION FRACTURE W PAIN Janua ry 2024 3:42pm ADMISSION EXAM May 21, 2024 10:56am ADMISSION EXAM May 25, 2024 1:55pm LONG TERM LAB WORK June 01, 2024 4: 00am LONG TERM LAB WORK June 08, 2024 4 :00am LONG TERM LAB WORK June 15, 2024 5 :00am LONG TERM LAB WORK June 22, 2024 5 :00am NEW CONCERN June 23, 2024 4:5 8pm LONG TERM LAB WORK June 29, 2024 5: 00am LONG TERM LAB WORK July 06, 2024 5: 00am LONG TERM LAB WORK July 13, 2024 5 :00am LONG TERM LAB WORK July 20, 2024 4 :00am LONG TERM LAB WORK July 27, 2024 5 :00am LONG TERM LAB WORK August 03, 2024 5:00 am LABWORK August 10, 2024 5:00a m LONG TERM LAB WORK August 17, 2024 5:0 0am Chief Complaint Admit Date LONG TERM LAB WORK July 06, 2024 5: 00am LONG TERM LAB WORK July 13, 2024 5 :00am LONG TERM LAB WORK July 20, 2024 4 :00am LONG TERM LAB WORK July 27, 2024 5 :00am LONG TERM LAB WORK August 03, 2024 5:00 am LABWORK August 10, 2024 5:00a m LONG TERM LAB WORK August 17, 2024 5:0 0am LONG TERM LAB WORK August 24, 2024 5:0 0am LONG TERM LAB WORK August 31, 2024 5:0 0am LONG TERM LAB WORK' September 07, 2024 5 :00am LONG TERM LAB WORK September 14, 2024 5: 00am LONG TERM LAB WORK September 21, 2024 5: 00am LONG TERM LAB WORK September 28, 2024 5:0 0am LONG TERM LAB WORK October 14, 2024 5: 00am ABN HYPERTENSION/EKG November 02, 2024 10 :03am Reason for Visit Admit Date Abnormal electrocardiogram November 02, 2 025 10:03am Essential (primary) hypertension November 02, 2024 10:03am Nonrheumatic aortic (valve) stenosis Aug us2024 10:03am Supraventricular tachycardia November 02, 2024 10:03am Chief Complaint Admit Date LONG TERM LAB WORK July 20, 2024 4 :00am LONG TERM LAB WORK July 27, 2024 5 :00am LONG TERM LAB WORK August 03, 2024 5:00 am LABWORK August 10, 2024 5:00a m LONG TERM LAB WORK August 17, 2024 5:0 0am LONG TERM LAB WORK August 24, 2024 5:0 0am LONG TERM LAB WORK August 31, 2024 5:0 0am LONG TERM LAB WORK' September 07, 2024 5 :00am LONG TERM LAB WORK September 14, 2024 5: 00am LONG TERM LAB WORK September 21, 2024 5: 00am LONG TERM LAB WORK September 28, 2024 5:0 0am New Concern October 13, 2024 2:27 pm LONG TERM LAB WORK October 14, 2024 5: 00am ABN HYPERTENSION/EKG November 02, 2024 10 :03am Chief Complaint Admit Date LONG TERM LAB WORK July 20, 2024 4 :00am LONG TERM LAB WORK July 27, 2024 5 :00am LONG TERM LAB WORK August 03, 2024 5:00 am LABWORK August 10, 2024 5:00a m LONG TERM LAB WORK August 17, 2024 5:0 0am LONG TERM LAB WORK August 24, 2024 5:0 0am LONG TERM LAB WORK August 31, 2024 5:0 0am LONG TERM LAB WORK' September 07, 2024 5 :00am LONG TERM LAB WORK September 14, 2024 5: 00am LONG TERM LAB WORK September 21, 2024 5: 00am LONG TERM LAB WORK September 28, 2024 5:0 0am Follow Up Visit September 28, 2024 3:00p m New Concern October 13, 2024 2:27 pm LONG TERM LAB WORK October 14, 2024 5: 00am ABN HYPERTENSION/EKG November 02, 2024 10 :03am Chief Complaint Admit Date LONG TERM LAB WORK August 31, 2024 5:0 0am LONG TERM LAB WORK' September 07, 2024 5 :00am LONG TERM LAB WORK September 14, 2024 5: 00am LONG TERM LAB WORK September 21, 2024 5: 00am LONG TERM LAB WORK September 28, 2024 5:0 0am Follow Up Visit September 28, 2024 3:00p m New Concern October 13, 2024 2:27 pm LONG TERM LAB WORK October 14, 2024 5: 00am LONG TERM LAB WORK November 02, 2024 5 :00am ABN HYPERTENSION/EKG November 02, 2024 10 :03am LONG TERM LAB WORK November 22, 2024 5:00am LONG TERM LAB WORK November 30 4:00am Abnormal electrocardiogram [ECG] [EKG] S eptember 2024 7:09am Amb Documentation December 20, 2024 4:32pm Amb Documentation December 21, 2024 8:09am Chief Complaint Admit Date LONG TERM LAB WORK' September 07, 2024 5 :00am LONG TERM LAB WORK September 14, 2024 5: 00am LONG TERM LAB WORK September 21, 2024 5: 00am LONG TERM LAB WORK September 28, 2024 5:0 0am Follow Up Visit September 28, 2024 3:00p m New Concern October 13, 2024 2:27 pm LONG TERM LAB WORK October 14, 2024 5: 00am LONG TERM LAB WORK November 02, 2024 5 :00am ABN HYPERTENSION/EKG November 02, 2024 10 :03am LONG TERM LAB WORK November 22, 2024 5:00am LONG TERM LAB WORK November 30 4:00am Abnormal electrocardiogram [ECG] [EKG] S eptember 2024 7:09am Amb Documentation December 20, 2024 4:32pm Amb Documentation December 21, 2024 8:09am Family History No Family History Records Found [...] Will Yes April 10 5:15pm Power of Program Aide Group Work Yes April 10, 2021 5:15pm Advance Directive Response Recorded Date/ Time Advance Directives Yes January 1:49am Living Will Yes April 10 4:15pm Power of Program Aide Group Work Yes April 10, 2021 4:15pm Advance Directive Response Recorded Date/ Time Living Will No March 30 9:41pm Do you have a Healthcare Power of Program Aide Group Work? No March 30, 2024 9:41pm Living Will Yes April 10 5:15pm Do you have a Healthcare Power of Program Aide Group Work? Yes April 10, 2021 5:15pm Living Will No April 11 3:41pm Do you have a Healthcare Power of Program Aide Group Work? No April 11, 2024 3:41pm Living Will No April 19 5:36pm Do you have a Healthcare Power of Program Aide Group Work? No April 19, 2024 5:36pm Advance Directives Yes January 2:49am Advance Directive Response Recorded Date/ Time Living Will No April 11 3:41pm Do you have a Healthcare Power of Program Aide Group Work? No April 11, 2024 3:41pm Living Will No April 19 5:36pm Do you have a Healthcare Power of Program Aide Group Work? No April 19, 2024 5:36pm Advance Directives Yes January 2:49am Advance Directive Response Recorded Date/ Time Living Will No April 19 5:36pm Do you have a Healthcare Power of Program Aide Group Work? 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 Plant Operator Relationship Specialty Start Date End Date Michael Snowden Chi PCP - General Gerontology 09/05/17 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 Michael Snowden MD Primary Care Provider Active Start: October 13, 2024 End: October 13, 2024 Audra Drake KILN TESTER, KILN TESTER-C Attending Provider Active Start: October 13, 2024 End: October 13, 2024 Team Status: Active Member Role/Relationship Status Dates Dr. Michael Snowden MD Primary Care Provider Active Start: October 14, 2024 Nikia JAVIER MD Attending Provider Active Start: October 14, 2024 Team Status: Active Member Role/Relationship Status Dates Dr. Michael Snowden MD Primary Care Provider Active Start: November 02, 2024 Audra JAVIER KILN TESTER-C Attending Provider Active Start: November 02, 2024 Team Status: Inactive Member Role/Relationship Status Dates Dr. Michael Snowden MD Primary Care Provider Active Start: November 02, 2024 End: November 02, 2024 Dr. Michael Snowden MD Referring Provider Active Start: November 02, 2024 End: November 02, 2024 Mari Medina KILN TESTER, KILN TESTER-C Attending Provider Active Start: November 02, 2024 [...] End: October 13, 2024 Audra Drake NP, KILN TESTER-C Attending Provider Active Start: October 13, 2024 End: October 13, 2024 Bitumen Plant Operator Relationship Specialty Start Date End Date Michael Snowden Chi PCP - General Gerontology 09/05/17 Bitumen Plant Operator Relationship Specialty Start Date End Date Michael Snowden Chi PCP - General Gerontology 09/05/17 Bitumen Plant Operator Relationship Specialty Start Date End Date Michael Snowden Chi PCP - General Gerontology 09/05/17 Team Status: Active Member Role/Relationship Status Dates Dr. Michael Snowden MD Primary care physician Active Team Status: Active Member Role/Relationship Status Dates Dr. Michael Snowden MD Primary care physician Active Start: August 31, 2024 MAR Noe Attending physician Active Start: August 31, 2024 Team Status: Active Member Role/Relationship Status Dates Dr. Michael Snowden MD Primary care physician Active Start: September 07, 2024 Nikia JAVIER MD Attending physician Active Start: September 07, 2024 Team Status: Active Member Role/Relationship Status Dates Dr. Michael Snowden MD Primary care physician Active Start: September 14, 2024 Nikia JAVIER MD Attending physician Active Start: September 14, 2024 Team Status: Active Member Role/Relationship Status Dates Dr. Michael Snowden MD Primary care physician Active Start: September 21, 2024 Nikia JAVIER MD Attending physician Active Start: September 21, 2024 Team Status: Active Member Role/Relationship Status Dates Dr. Michael Snowden MD Primary care physician Active Start: September 28, 2024 MAR Noe Attending physician Active Start: September 28, 2024 Team Status: Inactive Member Role/Relationship Status Dates Dr. Michael Snowden MD Primary care physician Active Start: September 28, 2024 End: September 28, 2024 Dr. Nikia Henderson MD Attending physician Active Start: September 28, 2024 End: September 28, 2024 Team Status: Inactive Member Role/Relationship Status Dates Dr. Michael Snowden MD Primary care physician Active Start: October 13, 2024 End: October 13, 2024 DIEUDONNE Lomas NPC Attending physician Active Start: October 13, 2024 End: October 13, 2024 Team Status: Active Member Role/Relationship Status Dates Dr. Michael Snowden MD Primary care physician Active Start: October 14, 2024 Nikia JAVIER MD Attending physician Active Start: October 14, 2024 Team Status: Active Member Role/Relationship Status Dates Dr. Michael Snowden MD Primary care physician Active Start: November 02, 2024 Audra Tickton OLS, KILN TESTER-C Attending physician Active Start: November 02, 2024 Team Status: Inactive Member Role/Relationship Status Dates Dr. Michael Snowden MD Primary care physician Active Start: November 02, 2024 End: November 02, 2024 Dr. Michael Snowden MD Referring Provider Active Start: November 02, 2024 End: November 02, 2024 Mari Medina KILN TESTER, KILN TESTER-C Attending physician Active Start: November 02, 2024 End: November 02, 2024 Team Status: Active Member Role/Relationship Status Dates Dr. Michael Snowden MD Primary care physician Active Start: November 22, 2024 Nikia JAVIER MD Attending physician Active Start: November 22, 2024 Team Status: Active Member Role/Relationship Status Dates Dr. Michael Snowden MD Primary care physician Active Start: November 30, 2024 Niika JAVIER MD Attending physician Active Start: November 30, 2024 Nikia JAVIER MD Referring Provider Active Start: November 30, 2024 Team Status: Inactive Member Role/Relationship Status Dates Dr. Michael Snowden MD Primary care physician Active Start: December 20, 2024 End: December 20, 2024 Mari Medina KILN TESTER, KILN TESTER-C Attending physician Active Start: December 20, 2024 End: December 20, 2024 Mari Medina KILN TESTER, KILN TESTER-C Referring Provider Active Start: December 20, 2024 End: December 20, 2024 Team Status: Active Member Role/Relationship Status Dates Dr. Michael Snowden MD Primary care physician Active Start: December 20, 2024 Dr. Bret Daniels MD Attending physician Active Start: December 20, 2024 Team Status: Active Member Role/Relationship Status Dates Dr. Michael Snowden MD Primary care physician Active Start: December 20, 2024 Mari Medina NP, KILN TESTER-C Attending physician Active Start: December 20, 2024 Team Status: Active Member Role/Relationship Status Dates Dr. Michael Snowden MD Primary care physician Active Start: December 21, 2024 Mari Medina KILN TESTER, KILN TESTER-C Attending physician Active Start: December 21, 2024 Team Status: Active Member Role/Relationship Status Dates Dr. Michael Snowden MD Primary care physician Active Start: September 07, 2024 Nikia JAVIER MD Attending physician Active Start: September 07, 2024 Team Status: Active Member Role/Relationship Status Dates Dr. Michael Snowden MD Primary care physician Active Start: September 14, 2024 Nikia JAVIER MD Attending physician Active Start: September 14, 2024 Team Status: Inactive Member Role/Relationship Status Dates Dr. Michael Snowden MD Primary care physician Active Start: September 21, 2024 End: September 21, 2024 Nikia JAVIER MD Attending physician Active Start: September 21, 2024 End: September 21, 2024 Team Status: Active Member Role/Relationship Status Dates Dr. Michael Snowden MD Primary care physician Active Start: September 28, 2024 Audra JAVIER NP-C Attending physician Active Start: September 28, 2024 Team Status: Inactive Member Role/Relationship Status Dates Dr. Michael Snowden MD Primary care physician Active Start: September 28, 2024 End: September 28, 2024 Dr. Nikia Henderson MD Attending physician Active Start: September 28, 2024 End: September 28, 2024 Team Status: Inactive Member Role/Relationship Status Dates Dr. Michael Snowden MD Primary care physician Active Start: October 13, 2024 End: October 13, 2024 Audra Drake NP KILN TESTER-C Attending physician Active Start: October 13, 2024 End: October 13, 2024 Team Status: Active Member Role/Relationship Status Dates Dr. Michael Snowden MD Primary care physician Active Start: October 14, 2024 Nikia JAVIER MD Attending physician Active Start: October 14, 2024 Team Status: Active Member Role/Relationship Status Dates Dr. Michael Snowden MD Primary care physician Active Start: November 02, 2024 Audra JAVIER NP-C Attending physician Active Start: November 02, 2024 Team Status: Inactive Member Role/Relationship Status Dates Dr. Michael Snowden MD Primary care physician Active Start: November 02, 2024 End: November 02, 2024 Dr. Michael Snowden MD Referring Provider Active Start: November 02, 2024 End: November 02, 2024 Mari Medina NP, KILN TESTER-C Attending physician Active Start: November 02, 2024 End: November 02, 2024 Team Status: Active Member Role/Relationship Status Dates Dr. Michael Snowden MD Primary care physician Active Start: November 22, 2024 Nikia JAVIER MD Attending physician Active Start: November 22, 2024 Team Status: Active Member Role/Relationship Status Dates Dr. Michael Snowden MD Primary care physician Active Start: November 30, 2024 Nikia JAVIER MD Attending physician Active Start: November 30, 2024 Nikia JAVIER MD Referring Provider Active Start: November 30, 2024 Team Status: Inactive Member Role/Relationship Status Dates Dr. Michael Snowden MD Primary care physician Active Start: December 20, 2024 End: December 20, 2024 Mari Medina NP, KILN TESTER-C Attending physician Active Start: December 20, 2024 End: December 20, 2024 Mari Medina NP, KILN TESTER-C Referring Provider Active Start: December 20, 2024 End: December 20, 2024 Team Status: Active Member Role/Relationship Status Dates Dr. Michael Snowden MD Primary care physician Active Start: December 20, 2024 Dr. Bret Daniels MD Attending physician Active Start: December 20, 2024 Team Status: Active Member Role/Relationship Status Dates Dr. Michael Snowden MD Primary care physician Active Start: December 20, 2024 Mari Medina NP, KILN TESTER-C Attending physician Active Start: December 20, 2024 Team Status: Active Member Role/Relationship Status Dates Dr. Michael Snowden MD Primary care physician Active Start: December 21, 2024 Mari Medina NP, KILN TESTER-C Attending physician Active Start: December 21, 2024 Source Comments (unrecognize d section and content) In the event this informatio n is protected by the Federal Confidentiality of Alcohol and Drug Abuse Patient Records regulations: The Federal rules restrict any use of the information to criminally investigate or prosecute any alcohol or drug abuse patient.[facility] the event this information is protected by the Federal Confidentiality of Alcohol and Drug Abuse Patient Records regulations: The Federal rules restrict any use of the information to criminally investigate or prosecute any alcohol or drug abuse patient.[facility] the event this information is protected by the Federal Confidentiality of Alcohol and Drug Abuse Patient Records regulations: The Federal rules restrict any use of the information to criminally investigate or prosecute any alcohol or drug abuse patient.[facility] the event this information is protected by the Federal Confidentiality of Alcohol and Drug Abuse Patient Records regulations: The Federal rules restrict any use of the information to criminally investigate or prosecute any alcohol or drug abuse patient.[facility] the event this information is protected by the Federal Confidentiality of Alcohol and Drug Abuse Patient Records regulations: The Federal rules restrict any use of the information to criminally investigate or prosecute any alcohol or drug abuse patient.[facility] the event this information is protected by the Federal Confidentiality of Alcohol and Drug Abuse Patient Records regulations: The Federal rules restrict any use of the information to criminally investigate or prosecute any alcohol or drug abuse patient.[facility] the event this information is protected by the Federal Confidentiality of Alcohol and Drug Abuse Patient Records regulations: The Federal rules restrict any use of the information to criminally investigate or prosecute any alcohol or drug abuse patient.[facility] the event this information is protected by the Federal Confidentiality of Alcohol and Drug Abuse Patient Records regulations: The Federal rules restrict any use of the information to criminally investigate or prosecute any alcohol or drug abuse patient.[facility] the event this information is protected by the Federal Confidentiality of Alcohol and Drug Abuse Patient Records regulations: The Federal rules restrict any use of the information to criminally investigate or prosecute any alcohol or drug abuse patient.[facility] Reason for Visit (unrecogniz ed section and content) Reason Comments New Patient Reason Comments Established Patient Reason Comments Medication Preauthorization Evenity 210m g- Denied Reason Comments Osteoporosis Reason Comments Prior Authorization [employer] Reason Comments Appointment INFORMATION SOURCE (unrecogn ized section and content) DATE CREATED AUTHOR 11/25/2024 [facility] DATE CREATED AUTHOR AUTHOR'S ORGANIZ ATION 01/26/2025 [facility] FOR RECORDS PERTAINING TO PATIENTS WHO [...] BE BASED ON THE PRIMARY CLINICAL RECORDS. [employer] provides no warranty or guarantee of the accuracy or completeness of information in this document.
[2025-02-01 08:28] LABS: Hematocrit 37.9 % (37-47); Hemoglobin 12.0 g/dL (12.0-15.0); Immature Granulocytes Count 0.040 X10^3/uL (0.0-0.0); Mean Corp Hgb Conc 31.7 g/dL (32-36); Mean Corpuscular Volume 101.9 fL (81-99); Mean Platelet Vol. 10.4 fl (6.2-12.0); NRBC Flagged by Analyzer 0 % (0-5); Platelet Count 204 K/mm3 (150-450); RBC Distribution Width CV 13.1 % (11.6-14.6); RBC Distribution Width SD 49.1 fl (35.1-43.9); Red Blood Count 3.72 M/mm3 (4.2-5.4); White Blood Count 5.7 K/mm3 (4.4-11.0)
[2025-02-01 09:18] LABS: AST(SGOT) 22 U/L (<=31); Alanine Aminotransfer ALT/SGPT 12 U/L (<=34); Albumin, Serum 3.5 g/dL (3.4-4.8); Alkaline Phosphatase 65 U/L (35-104); Anion Gap 10 (5-15); BUN 22 mg/dL (4-19); BUN/Creat Ratio 27.7 RATIO (10-20); Bilirubin, Direct 0.12 mg/dL (0.00-0.30); Calcium,Total 8.9 mg/dL (7.6-11.0); Carbon Dioxide 25.5 mmol/L (21.0-32.0); Chloride 106 mmol/L (98-108); Globulin 2.6 g/dL (2.2-4.2); Glucose 85 mg/dL (70-99); Magnesium 2.2 mg/dL (1.5-2.2); Potassium 4.4 mmol/L (3.3-5.1); Vitamin B12 526 pg/mL (180-914); Vitamin D,25 Hydroxy 43.6 ng/mL (30-100)
[2025-02-01 09:19] LABS: FOLATES,SERUM (FOLIC ACID) 8.74 ng/mL (4.60-34.80)
== END ==
LOC: OLS.WHLTCC 05:00
PROVIDERS: PCP Family Medicine Geriatric Medicine; Visit Provider Nurse Practitioner Adult Health
DX: I10 Essential (primary) hypertension (principal); E55.9 Vitamin D deficiency, unspecified; D51.9 Vitamin B12 deficiency anemia, unspecified; M62.830 Muscle spasm of back; E83.42 Hypomagnesemia
CPT/HCPCS: 36415; 80048; 80076; 82306; 82607; 82746; 83735; 85025

== ENCOUNTER → 2025-03-01 05:00 | Outpatient (REF) | payer MEDICARE, SELFPAY ==
[2025-03-01 08:01] LABS: Hematocrit 35.2 % (37-47); Hemoglobin 11.4 g/dL (12.0-15.0); Immature Granulocytes Count 0.010 X10^3/uL (0.0-0.0); Mean Corp Hgb Conc 32.4 g/dL (32-36); Mean Corpuscular Volume 100.3 fL (81-99); Mean Platelet Vol. 10.5 fl (6.2-12.0); NRBC Flagged by Analyzer 0 % (0-5); Platelet Count 201 K/mm3 (150-450); RBC Distribution Width CV 12.7 % (11.6-14.6); RBC Distribution Width SD 46.9 fl (35.1-43.9); Red Blood Count 3.51 M/mm3 (4.2-5.4); White Blood Count 5.4 K/mm3 (4.4-11.0)
[2025-03-01 08:18] LABS: Anion Gap 10 (5-15); BUN 20 mg/dL (4-19); BUN/Creat Ratio 25.3 RATIO (10-20); Calcium,Total 9.0 mg/dL (7.6-11.0); Carbon Dioxide 26.1 mmol/L (21.0-32.0); Chloride 106 mmol/L (98-108); Glucose 90 mg/dL (70-99); Potassium 4.1 mmol/L (3.3-5.1)
== END ==
LOC: OLS.WHLTCC 05:00
PROVIDERS: PCP Family Medicine Geriatric Medicine; Visit Provider Internal Medicine
DX: I10 Essential (primary) hypertension (principal)
CPT/HCPCS: 36415; 80048; 85025